=== PATIENT | male | born 1955 | race Caucasian/White ===

== ENCOUNTER → 2017-07-20 15:39 | Outpatient (CLI) | payer OTHER, SELFPAY ==
[2017-07-20 16:54] LABS: Hemoglobin 14.3 g/dl (13.0-16.5); Mean Corpuscular Hgb 29.7 pg (27.0-32.0); Mean Corpuscular Volume 87.3 fL (80-94); Mean Platelet Vol. 11.9 fl (6.2-12.0); Platelet Count 201 K/mm3 (150-450); RBC Distribution Width CV 13.1 % (11.6-14.6); RBC Distribution Width SD 40.9 fl (35.1-43.9); Red Blood Count 4.81 M/mm3 (4.6-6.2); White Blood Count 9.4 K/mm3 (4.4-11.0)
[2017-07-20 16:57] LABS: Scan Indicated on CBC? Y/N NO
[2017-07-20 17:18] LABS: Anion Gap 6 (5-15); BUN 23 mg/dL (7-18); BUN/Creat Ratio 26.2 RATIO (10-20); Calcium,Total 9.1 mg/dL (8.5-10.1); Chloride 107 mmol/L (98-107); Creatinine, Serum 0.88 mg/dL (0.70-1.30); EST Glomerular Filtration Rate 94 mL/min (>60); Est Glom Filt Rate - Afr Amer 114 mL/min (>60); Glucose 94 mg/dL (74-106); Potassium 4.6 mmol/L (3.5-5.1); Sodium Level 142 mmol/L (136-145)
== END ==
PROVIDERS: Family Provider Family Medicine; PCP Family Medicine; Visit Provider Internal Medicine Cardiovascular Disease
DX: R06.02 Shortness of breath (principal); I48.91 Unspecified atrial fibrillation
CPT/HCPCS: 36415; 80048; 85027

== ENCOUNTER 2017-07-21 00:16 | Observation (INO) | payer OTHER, SELFPAY ==
[2017-07-21] VITALS (21 sets, daily range): BP systolic 121–159; BP diastolic 75–102; PULSE 35–67; RESP 16–20; TEMP 36.6–37.2; O2SAT 93–98; BMI 44.8; BMI 44.0
--- NOTE | 2017-07-21 00:38 | RAD_ITS ---
STUDY: X-RAY CHEST REASON FOR EXAM: Male, 62 years old. Chest pressure, dizziness and bradycardia. TECHNIQUE: PA and lateral views of the chest. COMPARISON: July 14, 2014. FINDINGS: Cardiac monitoring leads are present. The lungs are expanded. There is mild interstitial thickening present in both lungs There is no demonstrated pleural abnormality. There is borderline cardiomegaly. Normal mediastinum and geraldine. There is prominence of the pulmonary hilar arteries without peripheral pulmonary vascular congestion. There is atherosclerotic calcification of the aortic arch with tortuosity. Normal visualized thoracic spine. Normal visualized ribs, clavicles, and shoulders. There is no demonstrated abnormality of the visualized soft tissue structures of the upper abdomen. RAD/Chest PA and Lateral IMPRESSION: Borderline cardiomegaly. The cardiac silhouette is larger than it was on the previous radiograph. Electronically Signed: Shana Reynoso MD at 1:51 EDT , Service support ,
--- NOTE | 2017-07-21 00:38 | EKG12_ITS ---
Test Reason : REPEAT Blood Pressure : / mmHG Vent. Rate : 052 BPM Atrial Rate : 052 BPM P-R Int : 180 ms QRS Dur : 112 ms QT Int : 432 ms P-R-T Axes : 062 -02 034 degrees QTc Int : 401 ms Sinus bradycardia Otherwise normal ECG Confirmed by REI WRAY MD ([id number]), web editor CYNTHIA KRUSE ([id number]) on 07/24/2017 1:18:24 PM Referred By: Rei Wray Confirmed By:REI WRAY MD
[2017-07-21 00:45] LABS: Absolute Lymphocyte Count 3.45 X10^3/ul (0.83-4.51); Absolute Neutrophil Count 4.8 X10^3/uL (2.0-7.7); Basophil# 0.06 X10^3/uL; Basophil% 0.6 % (0-1); Eosinophil# 0.23 X10^3/uL; Eosinophils% 2.4 % (0-5); Hematocrit 40.8 % (40-54); Hemoglobin 13.9 g/dl (13.0-16.5); Lymphocyte # 3.45 X10^3/ul (4.0); Lymphocyte % 36.1 % (19-41); Mean Corp Hgb Conc 34.1 g/gl (32-36); Mean Corpuscular Hgb 29.8 pg (27.0-32.0); Mean Corpuscular Volume 87.4 fL (80-94); Mean Platelet Vol. 11.2 fl (6.2-12.0); Monocyte# 1.02 X10^3/uL; Monocyte% 10.7 % (0-10); Neutrophil # 4.78 X10^3/uL (2.7-7.7); Neutrophil % 49.9 % (47-70); Platelet Count 196 K/mm3 (150-450); RBC Distribution Width CV 13.2 % (11.6-14.6); RBC Distribution Width SD 41.7 fl (35.1-43.9); Red Blood Count 4.67 M/mm3 (4.6-6.2); White Blood Count 9.6 K/mm3 (4.4-11.0)
[2017-07-21 00:46] LABS: POSITIVE COUNT NO; POSITIVE DIFFERENTIAL NO; POSITIVE MORPHOLOGY NO
[2017-07-21] MEDS: Aspirin 81 MG TAB.CHEW 324 MG PO (00:54)
[2017-07-21 00:58] LABS: Anion Gap 8 (5-15); BUN 27 mg/dL (7-18); BUN/Creat Ratio 28.2 RATIO (10-20); Chloride 106 mmol/L (98-107); Creatinine, Serum 0.96 mg/dL (0.70-1.30); EST Glomerular Filtration Rate 85 mL/min (>60); Est Glom Filt Rate - Afr Amer 103 mL/min (>60); Estimated Creatinine Clearance 89.81 ml/min; Glucose 102 mg/dL (74-106); Potassium 3.7 mmol/L (3.5-5.1); Sodium Level 143 mmol/L (136-145)
--- NOTE | 2017-07-21 01:20 | ED.VISSUMM ---
- ER Visit Summary Date of Service: 07/21/17 Chief Complaint: Chest pain History of Present Illness: The patient is a 62 M who presents with chest pain. He states that he has had chest pressure most of the day today which waxes and wanes but never completely resolves. He currently complains of only minimal discomfort. He is also felt short of breath. He reports pressure initially but also some burning type pain associated with some nausea but no vomiting. He saw his applications support engineer earlier today who had him discontinue his metoprolol due to bradycardia. However tonight his symptoms were worse he also developed some diaphoresis. He denies any recent illness fevers or vomiting. He has a history of atrial fibrillation with cardiac ablation but no history of coronary disease no diabetes hypertension or hyperlipidemia. He reports having a normal cardiac catheterization about 5 years ago. Physical Examination: Afebrile heart rate 57 vitals otherwise unremarkable Heart regular rhythm bradycardia Lungs are clear Abdomen soft Alert Symmetric radial pulses No edema Test Results: EKG shows sinus rhythm at a rate of 57 with no acute ischemic changes although initial EKG does show a fair amount of artifact. Chest x-ray shows no acute process on my review. CBC BMP and troponin unremarkable. Emergency Department Course and Treatment: Patient reports that at home his heart rate was as low as 32 tonight. I am also concerned given his description of symptoms as pressure with associated shortness of breath nausea and diaphoresis. Although he does not have a history of coronary disease he has obese with a history of dysrhythmia. I am concerned for potential cardiac ischemia. He was given aspirin here. He was discussed with the hospitalist. He will be admitted for further workup. Treatment Plan: [] Disposition: Admit Impression: Chest pain Bradycardia This note was generated with [employer] dictation software. It may contain incorrect words, spelling, and punctuation that were not noted in review of the chart prior to signing ED Disposition - Plan for ED Patient: Chief Complaint: Chest Pain Referrals: J aCrlos Reynoso MD [Primary Care Provider] -
--- NOTE | 2017-07-21 01:23 | EKG12_ITS ---
Test Reason : CP Blood Pressure : / mmHG Vent. Rate : 057 BPM Atrial Rate : 057 BPM P-R Int : 186 ms QRS Dur : 090 ms QT Int : 394 ms P-R-T Axes : 060 -14 032 degrees QTc Int : 383 ms Sinus bradycardia Otherwise normal ECG Confirmed by LAISHA UGALDE, REI ([id number]), health editor CYNTHIA KRUSE ([id number]) on 07/24/2017 1:19:35 PM Referred By: Rei Wray Confirmed By:REI WRAY MD
--- NOTE | 2017-07-21 01:23 | ED.DCSUM_ITS ---
- ER Visit Summary Date of Service: 07/21/17 Chief Complaint: Chest pain History of Present Illness: The patient is a 62 M who presents with chest pain. He states that he has had chest pressure most of the day today which waxes and wanes but never completely resolves. He currently complains of only minimal discomfort. He is also felt short of breath. He reports pressure initially but also some burning type pain associated with some nausea but no vomiting. He saw his periodicals library assistant earlier today who had him discontinue his metoprolol due to bradycardia. However tonight his symptoms were worse he also developed some diaphoresis. He denies any recent illness fevers or vomiting. He has a history of atrial fibrillation with cardiac ablation but no history of coronary disease no diabetes hypertension or hyperlipidemia. He reports having a normal cardiac catheterization about 5 years ago. Physical Examination: Afebrile heart rate 57 vitals otherwise unremarkable Heart regular rhythm bradycardia Lungs are clear Abdomen soft Alert Symmetric radial pulses No edema Test Results: EKG shows sinus rhythm at a rate of 57 with no acute ischemic changes although initial EKG does show a fair amount of artifact. Chest x-ray shows no acute process on my review. CBC BMP and troponin unremarkable. Emergency Department Course and Treatment: Patient reports that at home his heart rate was as low as 32 tonight. I am also concerned given his description of symptoms as pressure with associated shortness of breath nausea and diaphoresis. Although he does not have a history of coronary disease he has obese with a history of dysrhythmia. I am concerned for potential cardiac ischemia. He was given aspirin here. He was discussed with the hospitalist. He will be admitted for further workup. Treatment Plan: [] Disposition: Admit Impression: Chest pain Bradycardia This note was generated with [employer] dictation software. It may contain incorrect words, spelling, and punctuation that were not noted in review of the chart prior to signing ED Disposition - Plan for ED Patient: Chief Complaint: Chest Pain Referrals: J Carlos Reynoso MD [Primary Care Provider] -
--- NOTE | 2017-07-21 02:02 | PCM.HP.STD ---
Problem List (1) Chest pressure Status: Acute (2) Morbid obesity with BMI of 40.0-44.9, adult Status: Chronic (3) Bradycardia Status: Acute (4) Dehydration Status: Acute (5) Asthma Status: Chronic (6) Femoral artery pseudo-aneurysm, right Status: Resolved Comment: following an ablation at [facility] (7) Atrial fibrillation Status: Chronic Qualifiers: Atrial fibrillation type: paroxysmal Qualified Code(s): I48.0 - Paroxysmal atrial fibrillation (8) History of cardiac radiofrequency ablation Status: Chronic Comment: 06/20/05 @ [facility] per Dr. Lucas (9) Dyshidrotic eczema Status: Chronic Comment: BL hands History of Present Illness Date of Admission: 07/21/17 Chief Complaint: chest pressure associated with diaphoresis, lightheadedness and shortness of breath The patient is a 62 year old M with a past medical history of asthma atrial fibrillation with for radiofrequency ablations in the past, no aneurysms in the right leg following catheterization for ablation and morbid obesity who presented to the ER at [facility] with a c/o substernal chest pressure associated with lightheadedness, diaphoresis and SOB. The chest pressure this evening came on at rest while he was sitting in a chair. There was no radiation of the pain to the jaw, arms or back. 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 He denies CP with exertion. He saw Dr. Wray in the office on 07/20/17 and was apparently bradycardic and metoprolol was discontinued....he was taking 25 mg BID. His last stress test was > 5 years ago and it was negative. EKG in the ER shows SB but is otherwise normal. CXR has no acute findings. Troponin was less than 0.02. BUN was elevated at 27 with a creatinine of 0.96. He is being admitted to the monitored bed on PCU and will have serial CE's. If the CE's are negative will proceed with treadmill nuclear stress test. Past Medical History Past Medical History (Chronic Problems): Chronic Problems (Last Updated 07/20/17 @ 14:27 by Melly Foster) Morbid obesity with BMI of 40.0-44.9, adult (Chronic) Asthma (Chronic) Dyshidrotic eczema (Chronic) BL hands History of cardiac radiofrequency ablation (Chronic) 06/20/05 @ [facility] per Dr. Lucas Atrial fibrillation (Chronic) Allergies No Known Allergies Allergy (Verified 07/21/17 00:17) Home Medications: Ambulatory Orders Medication Instructions Recorded aspirin 325 mg tablet,delayed 325 mg PO QDAY 07/20/17 release Surgical History: - - Bilateral arthroscopic surgery of the knees. Psychiatric History: No pertinent psych hx Lives: Spouse/ Significant Other Smoking Status: Former smoker - He quit smoking in the 1970s Tobacco Use: Non-smoker Alcohol: Rare Drugs: None - *Family History Maternal History Items: Diabetes Paternal History Items: Cancer - Cannot remember if it is prostate or colon cancer Sibling History Items: - - He has a half-brother who is secondary to lung cancer Review of Systems Constitutional: Denies: Chills, Fever, Weight Change HEENT: Denies: Head Aches, Sinus Congestion, Sinus Drainage Cardiovascular: Reports: Chest Pressure, Light Headedness. Denies: Edema, Orthopnea, Palpitations, Paroxysmal Noc. Dyspnea, Syncope Respiratory: Denies: Cough, Shortness of breath at rest, Sputum production Gastrointestinal: Reports: - - he had bloating/gas in the upper abdomen earlier tonight and this was relieved with TUMS. Denies: Abdominal Pain, Nausea, Vomiting Genitourinary: Denies: Dysuria Musculoskeletal: Denies: Joint Pain, Joint Tenderness Skin: Reports: - - dry cracked hands Neurological: Denies: Numbness, Tingling, Focal weakness Psychiatric: Denies: Anxiety, Depression, Homicidal Ideations, Suicidal Ideations Endocrine: Denies: Change in Body Habitus Hematologic/ Lymphatic: Denies: Hx of blood clot VTE Information - Inpt Only VTE Present on Admission: No VTE Mechan Device Prophylaxis: None VTE Pharm Prophylaxis ordered?: No Reason prophylaxis not ordered:: Treatment Not Indicated - short admission expected Patient Problems: Active and Suspected Problems (Last Updated 07/20/17 @ 14:27 by Melly Foster) Chest pressure (Acute) Bradycardia (Acute) Dehydration (Acute) - Physical Exam General: Alert, Oriented x3, Cooperative, No apparent distress, Well developed, Well nourished HEENT: Atraumatic, PERRLA, EOMI, Normocephalic Oral: No Gingival or Mucosal Lesions/ Ulcerations, Dry Mucosa Neck: Supple, No JVD, Negative Carotid Bruits, Negative Hepatojugular Reflux, Trachea Midline Lungs: Clear to auscultation, Diminished Cardiovascular: Regular Rhythm, Normal S1, Normal S2, No murmurs, Bradycardic, No rub noted, No Gallop, - - tele monitor is showing SB at 53 BPM with PAC's Abdomen: Bowel Sounds Present, Soft, Non Tender, Non-Distended, Obese Extremities: No clubbing, No cyanosis, No edema, No Calf Tenderness, Peripheral Pulses Normal Skin: No rashes, No breakdown Musculoskeletal: No Muscle Wasting Neurological: Cranial nerves II-XII grossly intact, Neuro grossly intact Psych/Mental Status: Normal Affect, Appropriate Vital Signs Temp Pulse Resp BP Pulse Ox 98.4 F 50 L 16 144/75 H 98 07/21/17 00:18 07/21/17 01:53 07/21/17 01:53 07/21/17 01:53 07/21/17 01:53 Oxygen Flow Rate (L/min) 2 Oxygen Delivery Method Nasal Cannula Weight: 330 lb 11.094 oz Body Mass Index (BMI) 44.8 Laboratory Tests Past 24 Hrs 07/21/17 07/21/17 00:24 00:24 WBC 9.6 RBC 4.67 Hgb 13.9 Hct 40.8 MCV 87.4 MCH 29.8 MCHC 34.1 RDW 13.2 RDW Differential 41.7 Plt Count 196 MPV 11.2 Immature Gran % (Auto) 0.300 Neut % (Auto) 49.9 Lymph % (Auto) 36.1 [place] % (Auto) 10.7 H Eos % (Auto) 2.4 Baso % (Auto) 0.6 Absolute Neuts (auto) 4.8 Absolute Lymphs (auto) 3.45 Total Counted Not Reportable Sodium 143 Potassium 3.7 Chloride 106 Carbon Dioxide 29.0 Anion Gap 8 BUN 27 H Creatinine 0.96 Estim Creat Clear Calc 89.81 Est GFR (MDRD) Af Amer 103 Est GFR (MDRD) Non-Af 85 BUN/Creatinine Ratio 28.2 H Glucose 102 Calcium 9.0 Troponin I < 0.02 Assessment/Plan Active and Suspected Problems (Last Updated 07/20/17 @ 14:27 by Melly Foster) Chest pressure (Acute) Bradycardia (Acute) Dehydration (Acute) impressions 1. atypical chest pain occurring at rest and associated with lightheadedness, diaphoresis and SOB. HR was 32 BPM at home and in the 30's when he presented to the ER. No ischemic changes on the EKG. No pain with exertion. Sx are possibly related to severe bradycardia with low CO coupled with dehydration but, can not r/o RCA/IW ischemia. Admitted to PCU and serial CE's ordered and of negative will have a treadmill nuclear stress in the AM. 2. hx of PAF with radiofrequency ablation ?4 in the past 3. History of asthma 4. History of low aneurysms in the right lower extremity/femoral artery following cardiac catheterization for ablation 5. Morbid obesity Will notify Dr. Wray of his admission to the hospital in the AM Code Visit OBSV E&M: [id number] Initial observation care L3
--- NOTE | 2017-07-21 02:15 | HP.PCM_ITS ---
Problem List (1) Chest pressure Status: Acute (2) Morbid obesity with BMI of 40.0-44.9, adult Status: Chronic (3) Bradycardia Status: Acute (4) Dehydration Status: Acute (5) Asthma Status: Chronic (6) Femoral artery pseudo-aneurysm, right Status: Resolved Comment: following an ablation at [facility] (7) Atrial fibrillation Status: Chronic Qualifiers: Atrial fibrillation type: paroxysmal Qualified Code(s): I48.0 - Paroxysmal atrial fibrillation (8) History of cardiac radiofrequency ablation Status: Chronic Comment: 06/20/05 @ [facility] per Dr. Lucas (9) Dyshidrotic eczema Status: Chronic Comment: BL hands History of Present Illness Date of Admission: 07/21/17 Chief Complaint: chest pressure associated with diaphoresis, lightheadedness and shortness of breath The patient is a 62 year old M with a past medical history of asthma atrial fibrillation with for radiofrequency ablations in the past, no aneurysms in the right leg following catheterization for ablation and morbid obesity who presented to the ER at [facility] with a c/o substernal chest pressure associated with lightheadedness, diaphoresis and SOB. The chest pressure this evening came on at rest while he was sitting in a chair. There was no radiation of the pain to the jaw, arms or back. 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 He denies CP with exertion. He saw Dr. Wray in the office on 07/20 and was apparently bradycardic and metoprolol was discontinued....he was taking 25 mg BID. His last stress test was > 5 years ago and it was negative. EKG in the ER shows SB but is otherwise normal. CXR has no acute findings. Troponin was less than 0.02. BUN was elevated at 27 with a creatinine of 0.96. He is being admitted to the monitored bed on PCU and will have serial CE's. If the CE's are negative will proceed with treadmill nuclear stress test. Past Medical History Past Medical History (Chronic Problems): Chronic Problems (Last Updated 07/20/17 @ 14:27 by Melly Foster) Morbid obesity with BMI of 40.0-44.9, adult (Chronic) Asthma (Chronic) Dyshidrotic eczema (Chronic) BL hands History of cardiac radiofrequency ablation (Chronic) 06/20/05 @ [facility] per Dr. Lucas Atrial fibrillation (Chronic) Allergies No Known Allergies Allergy (Verified 07/21/17 00:17) Home Medications: Ambulatory Orders Medication Instructions Recorded aspirin 325 mg tablet,delayed 325 mg PO QDAY 07/20/17 release Surgical History: - - Bilateral arthroscopic surgery of the knees. Psychiatric History: No pertinent psych hx Lives: Spouse/ Significant Other Smoking Status: Former smoker - He quit smoking in the 1970s Tobacco Use: Non-smoker Alcohol: Rare Drugs: None - *Family History Maternal History Items: Diabetes Paternal History Items: Cancer - Cannot remember if it is prostate or colon cancer Sibling History Items: - - He has a half-brother who is secondary to lung cancer Review of Systems Constitutional: Denies: Chills, Fever, Weight Change HEENT: Denies: Head Aches, Sinus Congestion, Sinus Drainage Cardiovascular: Reports: Chest Pressure, Light Headedness. Denies: Edema, Orthopnea, Palpitations, Paroxysmal Noc. Dyspnea, Syncope Respiratory: Denies: Cough, Shortness of breath at rest, Sputum production Gastrointestinal: Reports: - - he had bloating/gas in the upper abdomen earlier tonight and this was relieved with TUMS. Denies: Abdominal Pain, Nausea, Vomiting Genitourinary: Denies: Dysuria Musculoskeletal: Denies: Joint Pain, Joint Tenderness Skin: Reports: - - dry cracked hands Neurological: Denies: Numbness, Tingling, Focal weakness Psychiatric: Denies: Anxiety, Depression, Homicidal Ideations, Suicidal Ideations Endocrine: Denies: Change in Body Habitus Hematologic/ Lymphatic: Denies: Hx of blood clot VTE Information - Inpt Only VTE Present on Admission: No VTE Mechan Device Prophylaxis: None VTE Pharm Prophylaxis ordered?: No Reason prophylaxis not ordered:: Treatment Not Indicated - short admission expected Patient Problems: Active and Suspected Problems (Last Updated 07/20/17 @ 14:27 by Melly Foster) Chest pressure (Acute) Bradycardia (Acute) Dehydration (Acute) - Physical Exam General: Alert, Oriented x3, Cooperative, No apparent distress, Well developed, Well nourished HEENT: Atraumatic, PERRLA, EOMI, Normocephalic Oral: No Gingival or Mucosal Lesions/ Ulcerations, Dry Mucosa Neck: Supple, No JVD, Negative Carotid Bruits, Negative Hepatojugular Reflux, Trachea Midline Lungs: Clear to auscultation, Diminished Cardiovascular: Regular Rhythm, Normal S1, Normal S2, No murmurs, Bradycardic, No rub noted, No Gallop, - - tele monitor is showing SB at 53 BPM with PAC's Abdomen: Bowel Sounds Present, Soft, Non Tender, Non-Distended, Obese Extremities: No clubbing, No cyanosis, No edema, No Calf Tenderness, Peripheral Pulses Normal Skin: No rashes, No breakdown Musculoskeletal: No Muscle Wasting Neurological: Cranial nerves II-XII grossly intact, Neuro grossly intact Psych/Mental Status: Normal Affect, Appropriate Vital Signs Temp Pulse Resp BP Pulse Ox 98.4 F 50 L 16 144/75 H 98 07/21/17 00:18 07/21/17 01:53 07/21/17 01:53 07/21/17 01:53 07/21/17 01:53 Oxygen Flow Rate (L/min) 2 Oxygen Delivery Method Nasal Cannula Weight: 330 lb 11.094 oz Body Mass Index (BMI) 44.8 Laboratory Tests Past 24 Hrs 07/21/17 07/21/17 00:24 00:24 WBC 9.6 RBC 4.67 Hgb 13.9 Hct 40.8 MCV 87.4 MCH 29.8 MCHC 34.1 RDW 13.2 RDW Differential 41.7 Plt Count 196 MPV 11.2 Immature Gran % (Auto) 0.300 Neut % (Auto) 49.9 Lymph % (Auto) 36.1 [place] % (Auto) 10.7 H Eos % (Auto) 2.4 Baso % (Auto) 0.6 Absolute Neuts (auto) 4.8 Absolute Lymphs (auto) 3.45 Total Counted Not Reportable Sodium 143 Potassium 3.7 Chloride 106 Carbon Dioxide 29.0 Anion Gap 8 BUN 27 H Creatinine 0.96 Estim Creat Clear Calc 89.81 Est GFR (MDRD) Af Amer 103 Est GFR (MDRD) Non-Af 85 BUN/Creatinine Ratio 28.2 H Glucose 102 Calcium 9.0 Troponin I < 0.02 Assessment/Plan Active and Suspected Problems (Last Updated 07/20/17 @ 14:27 by Melly Foster) Chest pressure (Acute) Bradycardia (Acute) Dehydration (Acute) impressions 1. atypical chest pain occurring at rest and associated with lightheadedness, diaphoresis and SOB. HR was 32 BPM at home and in the 30's when he presented to the ER. No ischemic changes on the EKG. No pain with exertion. Sx are possibly related to severe bradycardia with low CO coupled with dehydration but , can not r/o RCA/IW ischemia. Admitted to PCU and serial CE's ordered and of negative will have a treadmill nuclear stress in the AM. 2. hx of PAF with radiofrequency ablation ?4 in the past 3. History of asthma 4. History of low aneurysms in the right lower extremity/femoral artery following cardiac catheterization for ablation 5. Morbid obesity Will notify Dr. Wray of his admission to the hospital in the AM Code Visit OBSV E&M: 10397 Initial observation care L3
[2017-07-21] MEDS: 0.45% Normal Saline 1,000 ML 125 ML IV ×2 (03:29→11:37)
[2017-07-21] MEDS: Folic Acid 1 MG Tablet 2 MG PO (03:30)
[2017-07-21 04:46] LABS: AST(SGOT) 50 U/L (15-37); Alanine Aminotransfer ALT/SGPT 111 U/L (16-61); Albumin, Serum 3.9 g/dL (3.2-5.0); Alkaline Phosphatase 61 U/L (45-117); Bilirubin, Direct 0.13 mg/dL (0.00-0.30); Globulin 2.8 g/dL (2.2-4.2); Magnesium 2.3 mg/dL (1.6-2.6); Protein, Total 6.7 g/dL (6.4-8.2); Thyroid Stim Hormone (TSH) 3.45 uIU/mL (0.358-3.74)
[2017-07-21 05:34] LABS: Cholesterol 130 mg/dL (200); High Density Lipoprotein 45 mg/dL; Triglycerides 97 mg/dL; Very Low Density Lipoprotein 19 mg/dL (5-40)
--- NOTE | 2017-07-21 05:55 | EKG12_ITS ---
Test Reason : MORNING EKG Blood Pressure : / mmHG Vent. Rate : 049 BPM Atrial Rate : 049 BPM P-R Int : 182 ms QRS Dur : 102 ms QT Int : 454 ms P-R-T Axes : 070 -08 018 degrees QTc Int : 410 ms Sinus bradycardia Low voltage QRS Borderline ECG When compared with ECG of 21-JUL-2017 01:23, MANUAL COMPARISON REQUIRED, DATA IS UNCONFIRMED Confirmed by LAISHA UGALDE, REI ([id number]), health editor CYNTHIA KRUSE ([id number]) on 07/24/2017 1:55:33 PM Referred By: Rei Wray Confirmed By:REI WRAY MD
[2017-07-21] MEDS: Lisinopril 5 MG Tablet PO (07:26)
[2017-07-21] MEDS: Aspirin E.C. 81 MG Tablet PO (07:26)
--- NOTE | 2017-07-21 08:05 | CM.UR ---
Per MMO website, patient can transfer to any of the following in-network tertiary centers: [facility], [facility], [facility], [facility], and . Capri Holland, BSN, RN-BC, CCM
--- NOTE | 2017-07-21 08:42 | CON.PCM_ITS ---
Reason for Consult Date of Consultation: 07/21/17 Reason for Consultation: Chest pain and dizziness History of Present Illness: The patient is a 62 year old M with a past medical history of asthma atrial fibrillation with for radiofrequency ablations in the past,and morbid obesity who presented to the ER at [facility] with a c/o substernal chest pressure associated with lightheadedness, diaphoresis and SOB. The chest pressure this evening came on at rest while he was sitting in a chair. There was no radiation of the pain to the jaw, arms or back. 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 He denies CP with exertion. He saw me in the office on when he walked in complaining of the same an EKG was done and was apparently bradycardic and metoprolol was discontinued....he was taking 25 mg BID. One was for him to have an outpatient 24-hour Holter monitor and see what happened to his heart rate when he had discontinued the beta-damian. His last stress test was > 5 years ago and it was negative. EKG in the ER shows SB but is otherwise normal. CXR has no acute findings. Troponin was less than 0.02. BUN was elevated at 27 with a creatinine of 0.96. He presented to the emergency room later on in the evening and was admitted with a cardiology consult. [] Past Medical History Allergies/Adverse Reactions: Allergies Hay Fever Allergy (Uncoded 07/21/17 03:04) Other Home Medications: Ambulatory Orders Medication Instructions Recorded aspirin 325 mg tablet,delayed 325 mg PO QDAY 07/20/17 release Albuterol Inhaler [Ventolin Hfa 2 puff INHALATION Q6H PRN PRN 07/21/17 (SP)] Potassium (Otc) [Potassium OTC] 99 mg PO DAILY 07/21/17 Symbicort 160-4.5 Mcg Inhaler 2 puff INHALATION BID PRN 07/21/17 Past Medical History (Chronic Problems): Chronic Problems (Last Updated 07/20/17 @ 14:27 by Melly Foster) Morbid obesity with BMI of 40.0-44.9, adult (Chronic) Asthma (Chronic) History of cardiac radiofrequency ablation (Chronic) 06/20/05 @ [facility] per Dr. Lucas Atrial fibrillation (Chronic) Surgical History: - - Bilateral arthroscopic surgery of the knees. Psychiatric History: No pertinent psych hx - *Family History Maternal Family History: Family History (Last Updated 07/20/17 @ 14:29 by Melly Foster) Other CVA (cerebral vascular accident) Cancer Diabetes Hypertension History Items: Diabetes Paternal Family History: Family History (Last Updated 07/20/17 @ 14:29 by Melly Foster) Other CVA (cerebral vascular accident) Cancer Diabetes Hypertension History Items: Cancer - Cannot remember if it is prostate or colon cancer Sibling Family History: Family History (Last Updated 07/20/17 @ 14:29 by Melly Foster) Other CVA (cerebral vascular accident) Cancer Diabetes Hypertension History Items: - - He has a half-brother who is secondary to lung cancer Lives: Spouse/ Significant Other Smoking Status: Former smoker Tobacco Use: Non-smoker Alcohol: Rare Drugs: None Review of Systems - Review of Systems General: Denies: Fever, Night Sweats, Fatigue Cardiovascular: Reports: Chest Discomfort at Rest, Chest Pressure. Denies: Chest Discomfort, Shortness of Breath, Orthopnea, PND, Peripheral Edema, Palpitations, Lightheadedness, Dizziness, Near Syncope, Syncope Respiratory: Denies: Cough, Sputum Production, Hemoptysis Gastrointestinal: Denies: Hematemesis, Hematochezia, Melena Genitourinary: Denies: Dysuria, Hematuria Skin: Denies: Rash Subjectve: Pleasant gentleman in no apparent distress. Objective: Vital Signs Temp Pulse Resp BP Pulse Ox 98.3 F 53 L 18 139/85 H 98 07/21/17 07:22 07/21/17 07:22 07/21/17 07:22 07/21/17 07:22 07/21/17 07:22 Oxygen Flow Rate (L/min) 2 Oxygen Delivery Method Nasal Cannula Weight: 324 lb 8.327 oz Body Mass Index (BMI) 44.0 Intake and Output for Last 24 Hours 07/19/17 07/20/17 07/21/17 23:59 23:59 23:59 Intake Total 430 / 430 Balance 430 / 430 General: Awake, Alert, Oriented x 3 HEENT: PERRL, EOMI, Sclera Non Icteric Neck: Supple, Good ROM, No Lymph Node Enlargement Lungs: Clear to auscultation Cardiovascular: Regular Rhythm, Normal S1, Normal S2, No Murmurs, No Rubs, No Gallops Vascular: No Carotid Bruits, Normal Femoral Pulses, Normal Radial Pulses, Normal Dorsalis Pedal Pulse, Normal Posterior Tibial Pulses Abdomen: Bowel Sounds Present, Soft, Non Tender, No HSM, No Organomegaly Extremities: No Cyanosis, No Clubbing, No edema Neurological: No Focal Motor or Sensory Deficit 07/21/17 05:06: Troponin I < 0.02, Triglycerides 97, Cholesterol 130, LDL Cholesterol 66, VLDL Cholesterol 19, HDL Cholesterol 45 Rhythm: Sinus bradycardia. Pauses noted less than 2.5 seconds. EKG: Sinus bradycardia Assessment/Plan 1. Chest pain. The etiology of his chest pain is unclear at this time but is likely secondary to poor perfusion from his bradycardia arrhythmias. As he has presented back through the emergency room with chest discomfort it may be prudent to evaluate his coronary anatomy with cardiac catheterization and then depending on the findings further recommendations made. If his coronaries are noted to be normal I would recommend discontinuing his beta-damian and then observing him. 2. History of atrial tachyarrhythmia. He had a previous history of atrial tachyarrhythmia which was ablated successfully. It does not appear that he has had any recurrences but he appears to be bradycardic secondary to his beta-damian. Conduction system disease would need to be excluded. The above for the patient he understands and agrees to proceed. Thank you for allowing me to participate in the care of your patient. Please don't hesitate to call if any issues arise
[2017-07-21 09:00] LABS: Absolute Lymphocyte Count 2.36 X10^3/ul (0.83-4.51); Absolute Neutrophil Count 5.3 X10^3/uL (2.0-7.7); Basophil# 0.09 X10^3/uL; Eosinophil# 0.26 X10^3/uL; Hematocrit 40.2 % (40-54); Hemoglobin 13.7 g/dl (13.0-16.5); Lymphocyte # 2.36 X10^3/ul (4.0); Lymphocyte % 26.9 % (19-41); Mean Corp Hgb Conc 34.1 g/gl (32-36); Mean Corpuscular Hgb 29.7 pg (27.0-32.0); Mean Corpuscular Volume 87.2 fL (80-94); Mean Platelet Vol. 11.3 fl (6.2-12.0); Monocyte# 0.76 X10^3/uL; Monocyte% 8.7 % (0-10); Neutrophil # 5.27 X10^3/uL (2.7-7.7); Neutrophil % 60.1 % (47-70); Platelet Count 176 K/mm3 (150-450); RBC Distribution Width SD 40.7 fl (35.1-43.9); Red Blood Count 4.61 M/mm3 (4.6-6.2); White Blood Count 8.8 K/mm3 (4.4-11.0)
[2017-07-21 09:05] LABS: POSITIVE COUNT NO; POSITIVE DIFFERENTIAL NO; POSITIVE MORPHOLOGY NO
[2017-07-21 09:08] LABS: Partial Thromboplast Time 31.3 Seconds (24.1-36.2); Prothrombin Time (Protime)PT. 13.4 SECONDS (11.7-14.9)
[2017-07-21 09:40] LABS: Anion Gap 8 (5-15); BUN 23 mg/dL (7-18); BUN/Creat Ratio 28.3 RATIO (10-20); Calcium,Total 9.1 mg/dL (8.5-10.1); Chloride 107 mmol/L (98-107); Creatinine, Serum 0.81 mg/dL (0.70-1.30); EST Glomerular Filtration Rate 103 mL/min (>60); Est Glom Filt Rate - Afr Amer 124 mL/min (>60); Estimated Creatinine Clearance 106.45 ml/min; Glucose 83 mg/dL (74-106); Potassium 4.1 mmol/L (3.5-5.1); Sodium Level 143 mmol/L (136-145)
[2017-07-21 10:13] LABS: Bacteria 0 SEEN /hpf (None Seen); Mucous, Urine 0 SEEN /hpf (<or=2+); Red Blood Cells-Urine 0 SEEN /hpf (0-5); White Blood Cells 0 SEEN /hpf (0-5)
[2017-07-21 10:28] LABS: Glucose, Dipstick Normal (Normal); Ketone-Dipstick Negative (Negative); Leukocyte Esterase-Dipstick Negative /ul (Negative); Nitrite-Dipstick Negative (Negative); Occult Blood-Urine Negative /ul (Negative); Protein-Dipstick Negative (Negative); Urine Bilirubin Dipstick Negative (Negative); Urine Urobilinogen Normal (Normal)
[2017-07-21 10:39] LABS: Color, Urine Yellow (Yellow); Urine Clarity Clear (Clear)
[2017-07-21 10:46] LABS: Squamous Epithelial Cells - UA 0-5 SEEN /hpf (0-5)
--- NOTE | 2017-07-21 12:02 | PN_ITS ---
<Anabelle Oshea - Last Filed: 07/21/17 12:02> Subjective: Patient seen and examined. Denies further chest pressure. States he had episode of shortness of breath this morning, none further. Denies dizziness, lightheadedness, palpitations. To undergo cardiac catheterization this afternoon. Denies other complaints. - Physical Exam General: Alert, Oriented x3, Cooperative, No apparent distress HEENT: Atraumatic, PERRLA, EOMI, Normocephalic Neck: Supple, No JVD, Negative Carotid Bruits Lungs: Clear to auscultation, Diminished Cardiovascular: Regular Rhythm, Normal S1, Normal S2, No murmurs, Bradycardic Abdomen: Bowel Sounds Present, Soft, Non Tender, Non-Distended, Obese Extremities: No clubbing, No cyanosis, No edema, Capillary Refill Less than 3 Seconds Skin: No rashes, No breakdown Musculoskeletal: No Tenderness to Palpation of Joints or Extremities Neurological: Cranial nerves II-XII grossly intact, Neuro grossly intact Psych/Mental Status: Normal Affect, Appropriate Vital Signs Temp Pulse Resp BP Pulse Ox 98.3 F 53 L 18 139/85 H 98 07/21/17 07:22 07/21/17 11:07 07/21/17 07:22 07/21/17 07:22 07/21/17 07:22 Oxygen Flow Rate (L/min) 2 Oxygen Delivery Method Nasal Cannula Weight: 147.2 kg Body Mass Index (BMI) 44.0 Intake and Output for Last 24 Hours 07/19/17 07/20/17 07/21/17 23:59 23:59 23:59 Intake Total 1074 / 1074 Balance 1074 / 1074 Laboratory Tests Past 24 Hrs 07/21/17 07/21/17 07/21/17 05:06 08:35 08:35 WBC 8.8 RBC 4.61 Hgb 13.7 Hct 40.2 MCV 87.2 MCH 29.7 MCHC 34.1 RDW 13.0 RDW Differential 40.7 Plt Count 176 MPV 11.3 Immature Gran % (Auto) 0.300 Neut % (Auto) 60.1 Lymph % (Auto) 26.9 Barren % (Auto) 8.7 Eos % (Auto) 3.0 Baso % (Auto) 1.0 Absolute Neuts (auto) 5.3 Absolute Lymphs (auto) 2.36 Total Counted Not Reportable PT INR APTT Sodium Potassium Chloride Carbon Dioxide Anion Gap BUN Creatinine Estim Creat Clear Calc Est GFR (MDRD) Af Amer Est GFR (MDRD) Non-Af BUN/Creatinine Ratio Glucose Calcium Troponin I < 0.02 < 0.02 Triglycerides 97 Cholesterol 130 LDL Cholesterol 66 VLDL Cholesterol 19 HDL Cholesterol 45 Urine Color Urine Clarity Urine pH Ur Specific [place] Urine Protein Urine Glucose (UA) Urine Ketones Urine Occult Blood Urine Nitrite Urine Bilirubin Urine Urobilinogen Ur Leukocyte Esterase Urine RBC Urine WBC Ur Squamous Epith Cells Urine Bacteria Urine Mucus 07/21/17 07/21/17 07/21/17 08:35 08:35 10:02 WBC RBC Hgb Hct MCV MCH MCHC RDW RDW Differential Plt Count MPV Immature Gran % (Auto) Neut % (Auto) Lymph % (Auto) Barren % (Auto) Eos % (Auto) Baso % (Auto) Absolute Neuts (auto) Absolute Lymphs (auto) Total Counted PT 13.4 INR 1.0 APTT 31.3 Sodium 143 Potassium 4.1 Chloride 107 Carbon Dioxide 28.0 Anion Gap 8 BUN 23 H Creatinine 0.81 Estim Creat Clear Calc 106.45 Est GFR (MDRD) Af Amer 124 Est GFR (MDRD) Non-Af 103 BUN/Creatinine Ratio 28.3 H Glucose 83 Calcium 9.1 Troponin I Triglycerides Cholesterol LDL Cholesterol VLDL Cholesterol HDL Cholesterol Urine Color Yellow Urine Clarity Clear Urine pH 6.0 Ur Specific [place] 1.010 Urine Protein Negative Urine Glucose (UA) Normal Urine Ketones Negative Urine Occult Blood Negative Urine Nitrite Negative Urine Bilirubin Negative Urine Urobilinogen Normal Ur Leukocyte Esterase Negative Urine RBC 0 SEEN Urine WBC 0 SEEN Ur Squamous Epith Cells 0-5 SEEN Urine Bacteria 0 SEEN Urine Mucus 0 SEEN Medical Necessity - Tobacco Use Smoking Status: Former smoker Tobacco Use: Non-smoker Assessment/Plan Patient is a 62-year-old male admitted 07/21/2017 due to chest pressure with associated diaphoresis, lightheadedness and shortness of breath. He has a past medical history of asthma, atrial fibrillation status post radiofrequency ablation, morbid obesity. 1. Chest pain-troponin negative ?3. Cardiology consulted. Patient to undergo cardiac catheterization this afternoon with Dr. Wray. Patient follows with Dr. Wray as outpatient. Cardiology suspecting chest pain is secondary to poor perfusion from bradycardia. His metoprolol was recently discontinued as outpatient. 2. History of atrial fibrillation status post radiofrequency ablation ?4- currently sinus bradycardia. 3. Chronic asthma-no acute exacerbation. 4. Morbid obesity-encouraged diet and lifestyle modifications. DVT prophylaxis-initiate Lovenox subcu following cardiac catheterization. This patient was seen by JOHNNA Eubanks under the supervision of Dr. Russo. <Shaq Russo - Last Filed: 07/21/17 18:16> - Physical Exam Vital Signs Temp Pulse Resp BP Pulse Ox 98.1 F 58 L 16 139/82 H 93 07/21/17 16:17 07/21/17 16:17 07/21/17 16:17 07/21/17 16:17 07/21/17 16:17 Oxygen Flow Rate (L/min) 2 Oxygen Delivery Method Room Air Weight: 324 lb 8.327 oz Body Mass Index (BMI) 44.0 Intake and Output for Last 24 Hours 07/19/17 07/20/17 07/21/17 23:59 23:59 23:59 Intake Total 1074 / 1074 Balance 1074 / 1074 Laboratory Tests Past 24 Hrs 07/21/17 07/21/17 07/21/17 05:06 08:35 08:35 WBC 8.8 RBC 4.61 Hgb 13.7 Hct 40.2 MCV 87.2 MCH 29.7 MCHC 34.1 RDW 13.0 RDW Differential 40.7 Plt Count 176 MPV 11.3 Immature Gran % (Auto) 0.300 Neut % (Auto) 60.1 Lymph % (Auto) 26.9 Barren % (Auto) 8.7 Eos % (Auto) 3.0 Baso % (Auto) 1.0 Absolute Neuts (auto) 5.3 Absolute Lymphs (auto) 2.36 Total Counted Not Reportable PT INR APTT Sodium Potassium Chloride Carbon Dioxide Anion Gap BUN Creatinine Estim Creat Clear Calc Est GFR (MDRD) Af Amer Est GFR (MDRD) Non-Af BUN/Creatinine Ratio Glucose Calcium Troponin I < 0.02 < 0.02 Triglycerides 97 Cholesterol 130 LDL Cholesterol 66 VLDL Cholesterol 19 HDL Cholesterol 45 Urine Color Urine Clarity Urine pH Ur Specific [place] Urine Protein Urine Glucose (UA) Urine Ketones Urine Occult Blood Urine Nitrite Urine Bilirubin Urine Urobilinogen Ur Leukocyte Esterase Urine RBC Urine WBC Ur Squamous Epith Cells Urine Bacteria Urine Mucus 07/21/17 07/21/1718 08:35 08:35 10:02 WBC RBC Hgb Hct MCV MCH MCHC RDW RDW Differential Plt Count MPV Immature Gran % (Auto) Neut % (Auto) Lymph % (Auto) Barren % (Auto) Eos % (Auto) Baso % (Auto) Absolute Neuts (auto) Absolute Lymphs (auto) Total Counted PT 13.4 INR 1.0 APTT 31.3 Sodium 143 Potassium 4.1 Chloride 107 Carbon Dioxide 28.0 Anion Gap 8 BUN 23 H Creatinine 0.81 Estim Creat Clear Calc 106.45 Est GFR (MDRD) Af Amer 124 Est GFR (MDRD) Non-Af 103 BUN/Creatinine Ratio 28.3 H Glucose 83 Calcium 9.1 Troponin I Triglycerides Cholesterol LDL Cholesterol VLDL Cholesterol HDL Cholesterol Urine Color Yellow Urine Clarity Clear Urine pH 6.0 Ur Specific [place] 1.010 Urine Protein Negative Urine Glucose (UA) Normal Urine Ketones Negative Urine Occult Blood Negative Urine Nitrite Negative Urine Bilirubin Negative Urine Urobilinogen Normal Ur Leukocyte Esterase Negative Urine RBC 0 SEEN Urine WBC 0 SEEN Ur Squamous Epith Cells 0-5 SEEN Urine Bacteria 0 SEEN Urine Mucus 0 SEEN 07/21/17 13:45 WBC RBC Hgb Hct MCV MCH MCHC RDW RDW Differential Plt Count MPV Immature Gran % (Auto) Neut % (Auto) Lymph % (Auto) Barren % (Auto) Eos % (Auto) Baso % (Auto) Absolute Neuts (auto) Absolute Lymphs (auto) Total Counted PT INR APTT Sodium Potassium Chloride Carbon Dioxide Anion Gap BUN Creatinine Estim Creat Clear Calc Est GFR (MDRD) Af Amer Est GFR (MDRD) Non-Af BUN/Creatinine Ratio Glucose Calcium Troponin I < 0.02 Triglycerides Cholesterol LDL Cholesterol VLDL Cholesterol HDL Cholesterol Urine Color Urine Clarity Urine pH Ur Specific [place] Urine Protein Urine Glucose (UA) Urine Ketones Urine Occult Blood Urine Nitrite Urine Bilirubin Urine Urobilinogen Ur Leukocyte Esterase Urine RBC Urine WBC Ur Squamous Epith Cells Urine Bacteria Urine Mucus Assessment/Plan This patient was seen in conjunction with Anabelle PAN. I have independently interviewed and examined the patient and reviewed pertinent history, examination findings, laboratory and plan of management. I have reviewed the note and agree with the documented findings with the few additional points. In brief, patient is admitted for chest pain, with possibility of unstable angina. Patient is scheduled for cardiac cath. I have discussed my assessment with Anabelle PAN and orders have been reviewed.
--- NOTE | 2017-07-21 13:28 | CL.D_ITS ---
Patient Name: JANELLE QUIÑONES Study Date: 07/21/2017 Performing: Omer Wray MD Ht: 72.04 inches 183 cm : 1955 Wt: 324.08 lbs 147 kg Age: 62 Gender: male BSA: 2.62 PROCEDURE(S) PERFORMED [id number] CLINICAL PROFILE AND INDICATIONS INDICATIONS: 62-year-old man with history of chest pain Stress/Imaging Stress/Image Study Performed: No CONCLUSIONS Normal coronary arteries RECOMMENDATIONS Medical therapy DESCRIPTION OF PROCEDURE The patient arrived to the procedure lab. The risks and benefits of the procedure as well as a full d escription of our services here and current unavailability of surgical backup were fully explained to the patient and/or their significant other prior to the catheterization. The Timeout was completed, verifying the correct patient and procedure. The patient's procedural site was prepped and draped in the usual fashion. Local anesthetic was given subcutaneously to right radial region with Lidocaine 2% . Using a modified Seldinger technique, arterial access was obtained via the right radial artery, a 5 Fr sheath was inserted. Right Coronary Artery selective angiography was then performed in multiple v iews using a 5 Fr. 4.0 Central catheter. Left Coronary Artery selective angiography was performed in mu ltiple views using a 5 Fr. JL 4.5 catheter. Left Ventriculography was performed in GIFFORD projection usi ng a 5 Fr. Pigtail catheter. LV to AO pullback pressures were then recorded.The arterial sheath was p ulled and a TR Band was applied for hemostasis. 15CC AIR CORONARY ANGIOGRAPHY DOMINANCE: Right Dominant LEFT HEART ASSESSMENT Left Ventricular Ejection Fraction: by LV Gram 60 % Normal LV wall motion Normal Left Ventricular systolic function Normal Left Ventricular systolic function LEFT MAIN: Angiographically normal LEFT ANTERIOR DECENDING ARTERY: Angiographically normal CIRCUMFLEX ARTERY: Angiographically normal RIGHT CORONARY ARTERY: Angiographically normal COMPLICATIONS No Complications PROCEDURE MEDICATIONS Versed 1 mg IV Fentanyl 50 mcg IV Versed 1 mg IV Oxygen: 2 L/min via nasal cannula Heparin diluted in 23cc Heparinized saline. Patient given 10cc IA of this solution. 07/21/2017 13:07: 15 Verapamil 2.5mg, Ntg 100mcgs, 2000 units of Heparin diluted in 23cc Heparinized saline. Patient give n 10cc IA of this solution. 07/21/2017 13:07:15 SUMMARY OF HEMODYNAMIC DATA Time AIR REST ECG 12:28:26 AO 122/78 (98) SA 13:09:40 LV 132/13, 31 13:19:38 LV 133/14, 31 13:19:45 LV 134/13, 30 13:20:52 LVp 128/17, 32 13:20:54 AOp 129/81 (104) 13:20:59 Signed By Omer Wray MD On 07/21/2017 13:27:57 Omer Wray MD
--- NOTE | 2017-07-21 13:30 | PCM.PN.BLA ---
Progress Note Cardiac catheterization performed today which demonstrated the following: Left main coronary artery normal. Left anterior descending artery normal. Left circumflex artery normal. Right coronary artery dominant and normal. Preserved ejection fraction. Based on the above radiographic findings I would recommend discontinuing the metoprolol treating his hypertension and following him as an as an outpatient.
--- NOTE | 2017-07-21 15:20 | DCINST_ITS ---
- Discharge Diagnoses Current Active Problems: Current Active and Chronic Problems (Last Updated 07/20/17 @ 14:27 by Melly Foster ) Chest pressure (Acute) Morbid obesity with BMI of 40.0-44.9, adult (Chronic) Bradycardia (Acute) Dehydration (Acute) Asthma (Chronic) You will use the following diet at home:: Calorie/Carbohydrate Controlled ( specify 1200, 1400, etc), Cardiac Discharge Activity: - - Follow post-op cath instructions. Call your doctor if your incision/area has: Continuous Slow Oozing, Sudden Increased Bleeding, Increased Pain/ Swelling, Increased Redness, Foul Smelling Discharge, Swelling at the incision site Call your doctor if you observe: Shortness of breath, Dizziness, Fainting spells , Chest pain, Increased palpitations (irregular heartbeat) Allergies/Adverse Reactions: Allergies Hay Fever Allergy (Uncoded 07/21/17 03:04) Other Medications to take at Discharge aspirin 325 mg tablet,delayed release 325 mg PO QDAY 07/20/17 Albuterol Inhaler [Ventolin Hfa] 2 puff INHALATION Q6H PRN PRN 07/21/17 Lisinopril [Zestril] 10 mg PO DAILY #30 tab 07/21/17 Potassium (Otc) [Potassium OTC] 99 mg PO DAILY 07/21/17 Symbicort 160-4.5 Mcg Inhaler 2 puff INHALATION BID PRN 07/21/17 The following prescriptions were given: Lisinopril [Zestril] 10 mg PO DAILY #30 tab Primary Care Physician: J Carlos Reynoso MD [Primary Care Provider] - Please follow up with your Primary Care Physician in: 1 Week Please Follow Up With: Omer Wray MD When: 1-2 Weeks Proposed Discharge Date: 07/21/17
--- NOTE | 2017-07-21 15:22 | PCM.DC.SUM ---
<Anabelle Oshea - Last Filed: 07/21/17 15:27> Discharge Date and Diagnosis Date of Admission: 07/21/17 Date of Discharge: 07/21/17 - Primary Discharge Diagnosis Active and Suspected Problems (Last Updated 07/20/17 @ 14:27 by Melly Foster) 1. Atypical chest pain-ACS ruled out 2. Bradycardia 3. Mild Dehydration - Secondary Discharge Diagnosis Chronic Problems (Last Updated 07/20/17 @ 14:27 by Melly Foster) Morbid obesity with BMI of 40.0-44.9, adult (Chronic) Asthma (Chronic) History of cardiac radiofrequency ablation (Chronic) 06/20/05 @ [facility] per Dr. Lucas Atrial fibrillation (Chronic) Hospital Course and Treatment Imaging Results: Diagnostic Data Chest X-Ray 07/21/17 00:38 IMPRESSION: Borderline cardiomegaly. The cardiac silhouette is larger than it was on the previous radiograph. Electronically Signed: Shana Reynoso MD at 1:51 EDT , Service support , Dr. Wray- Cardiology Operations: None Procedures: Cardiac catheterization Summary of Care Provided: Patient is a 62-year-old male admitted 07/21/2017 due to chest pressure with associated diaphoresis, lightheadedness and shortness of breath. He has a past medical history of asthma, atrial fibrillation status post radiofrequency ablation, morbid obesity. 1. Chest pain-troponin negative ?3. Cardiology consulted. Patient follows with Dr. Wray as outpatient. He underwent cardiac catheterization which demonstrated normal coronary arteries and preserved ejection fraction. His metoprolol was recently discontinued due to bradycardia. He was started on lisinopril for hypertension. Vitals stable. We will continue outpatient follow-up with Dr. Wray in 1-2 weeks. Blood pressure at discharge 121/77, heart rate 56. 2. History of atrial fibrillation status post radiofrequency ablation ?4-currently sinus bradycardia. No further occurrences. 3. Chronic asthma-no acute exacerbation. 4. Morbid obesity-encouraged diet and lifestyle modifications. General: Alert, Oriented x3, Cooperative, No apparent distress HEENT: Atraumatic, PERRLA, EOMI, Normocephalic Neck: Supple, No JVD, Negative Carotid Bruits Lungs: Clear to auscultation, Diminished Cardiovascular: Regular Rhythm, Normal S1, Normal S2, No murmurs, Bradycardic Abdomen: Bowel Sounds Present, Soft, Non Tender, Non-Distended, Obese Extremities: No clubbing, No cyanosis, No edema, Capillary Refill Less than 3 Seconds Skin: No rashes, No breakdown Musculoskeletal: No Tenderness to Palpation of Joints or Extremities Neurological: Cranial nerves II-XII grossly intact, Neuro grossly intact Psych/Mental Status: Normal Affect, Appropriate Patient seen and examined prior to discharge. Physical assessment as noted above. Patient is stable for discharge home with the follow-up recommendations as noted above. This patient was seen by JOHNNA Eubanks under the supervision of Dr. Russo. Discharge Diet: Low fat/ Low Cholesterol Discharge Activity: - - Follow post-op cath instructions. Call your doctor if your incision/area has: Continuous Slow Oozing, Sudden Increased Bleeding, Increased Pain/ Swelling, Increased Redness, Foul Smelling Discharge, Swelling at the incision site Call your doctor if you observe: Shortness of breath, Dizziness, Fainting spells, Chest pain, Increased palpitations (irregular heartbeat) Home Medications: Medications to take at Discharge aspirin 325 mg tablet,delayed release 325 mg PO QDAY 07/20/17 Albuterol Inhaler [Ventolin Hfa] 2 puff INHALATION Q6H PRN PRN 07/21/17 Lisinopril [Zestril] 10 mg PO DAILY #30 tab 07/21/17 Potassium (Otc) [Potassium OTC] 99 mg PO DAILY 07/21/17 Symbicort 160-4.5 Mcg Inhaler 2 puff INHALATION BID PRN 07/21/17 Following Prescrptions Were Given to Patient: Lisinopril [Zestril] 10 mg PO DAILY #30 tab Primary Care Physician: J Carlos Reynoso MD [Primary Care Provider] - Please follow up with your Primary Care Physician in: 1 Week Please Follow Up With: Omer Wray MD When: 1-2 Weeks Disposition: Home Minutes spent on discharge:: 35 Patient Condition:: Stable Medical Necessity - Tobacco Use Smoking Status: Former smoker Tobacco Use: Non-smoker Meaningful Use Info Meaningful Use Diagnoses (Choose all that apply): None applicable <Shaq Russo - Last Filed: 07/21/17 17:30> Discharge Date and Diagnosis - Secondary Discharge Diagnosis Chronic Problems (Last Updated 07/20/17 @ 14:27 by Melly Foster) Morbid obesity with BMI of 40.0-44.9, adult (Chronic) Asthma (Chronic) History of cardiac radiofrequency ablation (Chronic) 06/20/05 @ [facility] per Dr. Lucas Atrial fibrillation (Chronic) Hospital Course and Treatment Summary of Care Provided: This patient was seen in conjunction with OCCUPATIONAL THERAPY SUPERVISORAnabelle. I have independently interviewed and examined the patient and reviewed pertinent history, examination findings, laboratory and plan of management. I have reviewed the note and agree with the documented findings with the few additional points. In brief, patient is admitted for chest pain and sinus bradycardia. Patient had cardiac cath today because of suspicion of unstable angina. Cardiac cath showed normal coronary arteries with preserved EF. Discharge medication reconciliation done. I have discussed my assessment with Anabelle PAN and orders have been reviewed. [] Code Visit OBSV E&M: 24282 Observation care discharge
--- NOTE | 2017-07-21 15:26 | DS.PCM_ITS ---
<Anabelle Oshea - Last Filed: 07/21/17 15:27> Discharge Date and Diagnosis Date of Admission: 07/21/17 Date of Discharge: 07/21/17 - Primary Discharge Diagnosis Active and Suspected Problems (Last Updated 07/20/17 @ 14:27 by Melly Foster) 1. Atypical chest pain-ACS ruled out 2. Bradycardia 3. Mild Dehydration - Secondary Discharge Diagnosis Chronic Problems (Last Updated 07/20/17 @ 14:27 by Melly Foster) Morbid obesity with BMI of 40.0-44.9, adult (Chronic) Asthma (Chronic) History of cardiac radiofrequency ablation (Chronic) 06/20/05 @ [facility] per Dr. Lucas Atrial fibrillation (Chronic) Hospital Course and Treatment Imaging Results: Diagnostic Data Chest X-Ray 07/21/17 00:38 IMPRESSION: Borderline cardiomegaly. The cardiac silhouette is larger than it was on the previous radiograph. Electronically Signed: Shana Reynoso MD at 1:51 EDT , Service support , Dr. Wray- Cardiology Operations: None Procedures: Cardiac catheterization Summary of Care Provided: Patient is a 62-year-old male admitted 07/21/2017 due to chest pressure with associated diaphoresis, lightheadedness and shortness of breath. He has a past medical history of asthma, atrial fibrillation status post radiofrequency ablation, morbid obesity. 1. Chest pain-troponin negative ?3. Cardiology consulted. Patient follows with Dr. Wray as outpatient. He underwent cardiac catheterization which demonstrated normal coronary arteries and preserved ejection fraction. His metoprolol was recently discontinued due to bradycardia. He was started on lisinopril for hypertension. Vitals stable. We will continue outpatient follow -up with Dr. Wray in 1-2 weeks. Blood pressure at discharge 121/77, heart rate 56. 2. History of atrial fibrillation status post radiofrequency ablation ?4- currently sinus bradycardia. No further occurrences. 3. Chronic asthma-no acute exacerbation. 4. Morbid obesity-encouraged diet and lifestyle modifications. General: Alert, Oriented x3, Cooperative, No apparent distress HEENT: Atraumatic, PERRLA, EOMI, Normocephalic Neck: Supple, No JVD, Negative Carotid Bruits Lungs: Clear to auscultation, Diminished Cardiovascular: Regular Rhythm, Normal S1, Normal S2, No murmurs, Bradycardic Abdomen: Bowel Sounds Present, Soft, Non Tender, Non-Distended, Obese Extremities: No clubbing, No cyanosis, No edema, Capillary Refill Less than 3 Seconds Skin: No rashes, No breakdown Musculoskeletal: No Tenderness to Palpation of Joints or Extremities Neurological: Cranial nerves II-XII grossly intact, Neuro grossly intact Psych/Mental Status: Normal Affect, Appropriate Patient seen and examined prior to discharge. Physical assessment as noted above. Patient is stable for discharge home with the follow-up recommendations as noted above. This patient was seen by JOHNNA Eubanks under the supervision of Dr. Russo. Discharge Diet: Low fat/ Low Cholesterol Discharge Activity: - - Follow post-op cath instructions. Call your doctor if your incision/area has: Continuous Slow Oozing, Sudden Increased Bleeding, Increased Pain/ Swelling, Increased Redness, Foul Smelling Discharge, Swelling at the incision site Call your doctor if you observe: Shortness of breath, Dizziness, Fainting spells , Chest pain, Increased palpitations (irregular heartbeat) Home Medications: Medications to take at Discharge aspirin 325 mg tablet,delayed release 325 mg PO QDAY 07/20/17 Albuterol Inhaler [Ventolin Hfa] 2 puff INHALATION Q6H PRN PRN 07/21/17 Lisinopril [Zestril] 10 mg PO DAILY #30 tab 07/21/17 Potassium (Otc) [Potassium OTC] 99 mg PO DAILY 07/21/17 Symbicort 160-4.5 Mcg Inhaler 2 puff INHALATION BID PRN 07/21/17 Following Prescrptions Were Given to Patient: Lisinopril [Zestril] 10 mg PO DAILY #30 tab Primary Care Physician: J Carlos Reynoso MD [Primary Care Provider] - Please follow up with your Primary Care Physician in: 1 Week Please Follow Up With: Omer Wray MD When: 1-2 Weeks Disposition: Home Minutes spent on discharge:: 35 Patient Condition:: Stable Medical Necessity - Tobacco Use Smoking Status: Former smoker Tobacco Use: Non-smoker Meaningful Use Info Meaningful Use Diagnoses (Choose all that apply): None applicable <Shaq Russo - Last Filed: 07/21/17 17:30> Discharge Date and Diagnosis - Secondary Discharge Diagnosis Chronic Problems (Last Updated 07/20/17 @ 14:27 by Melly Foster) Morbid obesity with BMI of 40.0-44.9, adult (Chronic) Asthma (Chronic) History of cardiac radiofrequency ablation (Chronic) 06/20/05 @ [facility] per Dr. Lucas Atrial fibrillation (Chronic) Hospital Course and Treatment Summary of Care Provided: This patient was seen in conjunction with BATCH OPERATORAnabelle. I have independently interviewed and examined the patient and reviewed pertinent history, examination findings, laboratory and plan of management. I have reviewed the note and agree with the documented findings with the few additional points. In brief, patient is admitted for chest pain and sinus bradycardia. Patient had cardiac cath today because of suspicion of unstable angina. Cardiac cath showed normal coronary arteries with preserved EF. Discharge medication reconciliation done. I have discussed my assessment with Anabelle PAN and orders have been reviewed. [] Code Visit OBSV E&M: 94965 Observation care discharge
== END 2017-07-21 15:20 | disposition home or self-care (01) ==
LOC: ED 01:05 → PCU 02:08
PROVIDERS: Admitting Provider Internal Medicine; Emergency Provider Emergency Medicine; Family Provider Family Medicine; PCP Family Medicine; Visit Provider Internal Medicine
DX: R07.89 Other chest pain (principal); R42 Dizziness and giddiness; J45.909 Unspecified asthma, uncomplicated; E66.01 Morbid (severe) obesity due to excess calories; Z68.41 Body mass index [BMI] 40.0-44.9, adult; Z71.3 Dietary counseling and surveillance; I48.2 Chronic atrial fibrillation; Z79.899 Other long term (current) drug therapy; Z79.82 Long term (current) use of aspirin; Z87.891 Personal history of nicotine dependence; R00.1 Bradycardia, unspecified; I48.0 Paroxysmal atrial fibrillation; L30.1 Dyshidrosis [pompholyx]; E86.0 Dehydration
CPT/HCPCS: 36415; 71046; 80048; 80061; 80076; 81001; 83735; 84443; 84484; 85025; 85610; 85730; 93005; 93458; 97802; 99152; 99153; 99285; J3010; Q9967; A4216; C1894

== ENCOUNTER → 2017-07-26 14:00 | Outpatient (CLI) | payer OTHER, SELFPAY | PROVIDERS: Family Provider Family Medicine; PCP Family Medicine; Visit Provider Internal Medicine Cardiovascular Disease | DX: I48.91 Unspecified atrial fibrillation (principal); R06.02 Shortness of breath; R00.1 Bradycardia, unspecified; Z98.890 Other specified postprocedural states | CPT/HCPCS: 93225; 93226 ==

== ENCOUNTER → 2017-07-28 16:23 | Outpatient (CLI) | payer OTHER, SELFPAY | PROVIDERS: Family Provider Family Medicine; PCP Family Medicine; Visit Provider Family Medicine | DX: Z12.5 Encounter for screening for malignant neoplasm of prostate (principal) | CPT/HCPCS: 36415; 84153; G0103 ==

== ENCOUNTER → 2017-10-11 18:10 | Outpatient (CLI) | payer OTHER, SELFPAY ==
[2017-10-11 21:17] LABS: M R Staph aureus DNA By PCR Negative (Negative); Probe Check PASS; Specimen Processing Control PASS; Staph aureus DNA By PCR NEGATIVE (Negative)
== END ==
PROVIDERS: Family Provider Family Medicine; PCP Family Medicine; Visit Provider Podiatrist
DX: L60.0 Ingrowing nail (principal)
CPT/HCPCS: 87070; 87077; 87186; 87205; 87640

== ENCOUNTER → 2017-12-12 16:50 | Outpatient (CLI) | payer OTHER, SELFPAY | PROVIDERS: Family Provider Family Medicine; PCP Family Medicine; Visit Provider Internal Medicine Cardiovascular Disease | DX: I48.4 Atypical atrial flutter (principal); Z95.0 Presence of cardiac pacemaker | CPT/HCPCS: 71046 ==

== ENCOUNTER → 2018-05-23 15:08 | Outpatient (CLI) | payer OTHER, SELFPAY ==
[2018-01-19 14:37] VITALS: BMI 44.3
[2018-05-23 16:01] LABS: Anion Gap 7 (5-15); BUN 16 mg/dL (7-18); BUN/Creat Ratio 19.3 RATIO (10-20); Calcium,Total 9.1 mg/dL (8.5-10.1); Chloride 107 mmol/L (98-107); Creatinine, Serum 0.83 mg/dL (0.70-1.30); EST Glomerular Filtration Rate 100 mL/min (>60); Est Glom Filt Rate - Afr Amer 121 mL/min (>60); Glucose 85 mg/dL (74-106); Potassium 3.9 mmol/L (3.5-5.1); Sodium Level 144 mmol/L (136-145)
[2018-05-23 16:13] LABS: BNP,B-Type NATRIURETIC PEPTIDE 111.6 pg/mL (0-100)
== END ==
PROVIDERS: Family Provider Family Medicine; PCP Family Medicine; Referring Provider Internal Medicine Cardiovascular Disease; Visit Provider Internal Medicine Cardiovascular Disease
DX: Z98.890 Other specified postprocedural states (principal); Z95.0 Presence of cardiac pacemaker
CPT/HCPCS: 36415; 80048; 83880

== ENCOUNTER → 2018-06-07 14:48 | Outpatient (CLI) | payer OTHER, SELFPAY ==
[2018-01-19 14:37] VITALS: BMI 44.3
--- NOTE | 2018-06-07 14:49 | ECHOD_ITS ---
Reason For Study: SOB Procedure This was a 2D Doppler, Color Flow transthoracic echocardiogram. Exam performed in department. Left Ventricle Normal LV size. Moderate concentric left ventricular hypertrophy. Left ventricular systolic function is normal. The estimated ejection fraction is 65 %. Stage 2 diastolic dysfunction. No regional wall motion abnormalities noted. Atria The left atrium is mildly enlarged. The right atrium is mildly enlarged. Mitral Valve Normal mitral valve. Tricuspid Valve Normal tricuspid valve. Mild (1+) tricuspid valve insufficiency. Pulmonary artery systolic pressure is 40 mmHg. Aortic Valve Normal aortic valve. Trisinus/trileaflet aortic valve. Pulmonic Valve Normal pulmonic valve. Great Vessels Normal aortic root. The pulmonary artery is normal size. Normal inferior vena cava. Pericardium/Pleural No pericardial effusion. MMode/2D Measurements & Calculations LVIDd: 5.5 cm IVSd: 1.5 cm Ao root diam: 3.3 cm LVIDs: 3.0 cm LVPWd: 1.4 cm RVDd: 4.3 cm FS: 46.0 % LAV(MOD-bp): 72.9 ml LVAd ap4: 32.0 cm2 SV(MOD-sp4): 65.8 ml LAV(MOD-bp) Indexed: 28.0 ml/m2 EDV(MOD-sp4): 99.9 ml LAV(MOD-sp2): 71.9 ml EDV(sp4-el): 103.6 ml LAV(MOD-sp4): 72.1 ml LVAs ap4: 15.9 cm2 ESV(MOD-sp4): 34.1 ml ESV(sp4-el): 30.8 ml EF(MOD-sp4): 65.9 % EF(sp4-el): 70.3 % SV(sp4-el): 72.8 ml LA A4 area: 23.6 cm2 LA dimension(2D): 5.0 cm RA A4 area: 24.2 cm2 Time Measurements MV dec time: 0.29 sec Doppler Measurements & Calculations MV E max puma: 64.0 cm/sec Lat Peak E' Puma: 7.6 cm/sec Med Peak E' Puma: 8.9 cm/sec MV A max puma: 51.1 cm/sec E/E' lat: 8.5 E/E' med: 7.2 MV E/A: 1.3 Ao V2 max: 177.0 cm/sec LV V1 max: 158.9 cm/sec PA V2 max: 203.3 cm/sec Ao max P.5 mmHg LV V1 max P.1 mmHg TR max puma: 300.2 cm/sec TR max P.2 mmHg Interpretation Summary Normal LV size. Moderate concentric left ventricular hypertrophy. Left ventricular systolic function is normal. The estimated ejection fraction is 65 %. Stage 2 diastolic dysfunction. Pulmonary artery systolic pressure is 40 mmHg. Ordering Physician: Omer Wray Referring Physician: EVELYN KRUSE Performed By: Janine Villafana RDCS
== END ==
PROVIDERS: Family Provider Family Medicine; PCP Family Medicine; Referring Provider Internal Medicine Cardiovascular Disease; Visit Provider Internal Medicine Cardiovascular Disease
DX: I48.91 Unspecified atrial fibrillation (principal); R06.02 Shortness of breath; Z95.0 Presence of cardiac pacemaker
CPT/HCPCS: 93306

== ENCOUNTER 2018-06-11 05:51 | Emergency (ER) | payer OTHER, SELFPAY ==
[2018-01-19 14:37] VITALS: BMI 44.3
[2018-06-11 05:52] VITALS: BP 148/84; PULSE 80; RESP 18; TEMP 36.4; O2SAT 97; BMI 45.3
--- NOTE | 2018-06-11 06:19 | RAD_ITS ---
HISTORY: PALPITATIONS AND SOB EXAM:XR Chest 2 Views: COMPARISON: 12/12/2017 FINDINGS: EKG leads in place. Normal heart size. No vascular congestion, pleural effusion, or acute pulmonary infiltration. No pneumothorax. The bony thorax appears intact. RAD/Chest PA and Lateral IMPRESSION: No acute cardiopulmonary disease. No significant interval change. at 0614 Reported and signed by: Robe Malhotra MD Electronically Signed: Robe Malhotra, at 6:50 EST Tel , Service support ,
--- NOTE | 2018-06-11 06:19 | EKG12_ITS ---
Test Reason : PALPITATIONS Blood Pressure : / mmHG Vent. Rate : 080 BPM Atrial Rate : 080 BPM P-R Int : 272 ms QRS Dur : 096 ms QT Int : 376 ms P-R-T Axes : 032 -43 041 degrees QTc Int : 433 ms Sinus rhythm with 1st degree A-V block Left axis deviation Abnormal ECG Confirmed by LAISHA UGALDE, REI ([id number]), food expeditor CYNTHIA KRUSE ([id number]) on 06/14/2018 1:16:56 PM Referred By: Rei Wray Confirmed By:REI WRAY MD
[2018-06-11 06:38] LABS: Absolute Lymphocyte Count 2.39 X10^3/ul (0.83-4.51); Absolute Neutrophil Count 3.3 X10^3/uL (2.0-7.7); Basophil# 0.05 X10^3/uL; Basophil% 0.8 % (0-1); Eosinophil# 0.27 X10^3/uL; Eosinophils% 4.1 % (0-5); Hematocrit 42.9 % (40-54); Hemoglobin 14.3 g/dl (13.0-16.5); Lymphocyte # 2.39 X10^3/ul (4.0); Lymphocyte % 36.2 % (19-41); Mean Corp Hgb Conc 33.3 g/gl (32-36); Mean Platelet Vol. 11.2 fl (6.2-12.0); Monocyte# 0.62 X10^3/uL; Monocyte% 9.4 % (0-10); Neutrophil # 3.25 X10^3/uL (2.7-7.7); Neutrophil % 49.2 % (47-70); Platelet Count 177 K/mm3 (150-450); RBC Distribution Width CV 12.8 % (11.6-14.6); RBC Distribution Width SD 39.9 fl (35.1-43.9); Red Blood Count 4.93 M/mm3 (4.6-6.2); White Blood Count 6.6 K/mm3 (4.4-11.0)
[2018-06-11 06:40] LABS: POSITIVE COUNT NO; POSITIVE DIFFERENTIAL NO; POSITIVE MORPHOLOGY NO
[2018-06-11 06:49] LABS: Anion Gap 5 (5-15); BUN 21 mg/dL (7-18); Calcium,Total 8.6 mg/dL (8.5-10.1); Chloride 109 mmol/L (98-107); Creatinine, Serum 0.84 mg/dL (0.70-1.30); EST Glomerular Filtration Rate 99 mL/min (>60); Est Glom Filt Rate - Afr Amer 119 mL/min (>60); Estimated Creatinine Clearance 101.36 ml/min; Glucose 89 mg/dL (74-106); Potassium 3.9 mmol/L (3.5-5.1); Sodium Level 142 mmol/L (136-145)
--- NOTE | 2018-06-11 07:32 | ED.VISSUMM ---
- ER Visit Summary Date of Service: 06/11/18 Chief Complaint: Palpitations, short of breath History of Present Illness: The patient is a 63 M who presents with palpitations and shortness of breath. This been going on for 8 hours. He has a history of prior similar symptoms. He has a history of sick sinus syndrome. He has a pacemaker. No coronary disease. He also complains of some shortness of breath. No chest pain. No fevers or vomiting. Physical Examination: Afebrile vitals unremarkable Heart regular rate and rhythm Lungs are clear Abdomen soft Extremities nontender Alert Test Results: EKG shows sinus rhythm with a first-degree AV block at a rate of 80. Repeat EKG shows paced rhythm at a rate of 80. Two-view chest x-ray shows no acute disease. CBC BMP unremarkable. Troponin negative. Emergency Department Course and Treatment: In observing the patient's monitor it appears that when he changes rhythm from his [place] rhythm to paced his when he develops palpitations. This may be the cause of his symptoms. Lab work otherwise normal unremarkable chest x-ray. I did speak to his cloth examiner hand, Dr. Wray. Patient will be sent up to the office for pacemaker interrogation. Treatment Plan: [] Disposition: Discharge Impression: Palpitations This note was generated with [employer] dictation software. It may contain incorrect words, spelling, and punctuation that were not noted in review of the chart prior to signing ED Disposition - Plan for ED Patient: Referrals: J Carlos Reynoso MD [Primary Care Provider] -
--- NOTE | 2018-06-11 07:34 | ED.DEP ---
ED Disposition - Plan for ED Patient: Instructions: ED Palpitations Referrals: J Carlos Reynoso MD [Primary Care Provider] -
[2018-06-11 07:51] VITALS: BP 128/97; PULSE 81; RESP 15; O2SAT 95
[2018-06-11 07:57] VITALS: BP 128/77; PULSE 82; RESP 15; O2SAT 95
--- NOTE | 2018-06-11 09:16 | PCM.CONS.C ---
Reason for Consult Date of Consultation: 06/11/18 Reason for Consultation: Irregular heartbeat History of Present Illness: JANELLE QUIÑONES, is a 63 M who presented to the emergency room with palpitations. He is a gentleman with a history of atrial tachyarrhythmias status post ablation in 2005 and then 2007. He however presented here earlier last year with not feeling well and bradycardia arrhythmias. He was noted to be in a sinus bradycardia on the beta-damian and he had his beta-damian dose reduced. He however presented to the emergency room the next day with chest discomfort and not feeling well and he underwent a diagnostic cardiac catheterization which demonstrated essentially normal coronary arteries and preserved left ventricular systolic function. He continued to complain of palpitations and underwent a 24-hour Holter monitor which demonstrated atrial fibrillation and flutter comprising 65% total QRS complex morphology. He was placed on beta-damian again as well as flecainide but he says that he had been having problems with his heart rate and not feeling well. He was sent to the [facility] where he underwent radio frequency ablation in August 2017. There was extensive right atrial scar noted. He had prolonged sinus node recovery time and this required stopping the beta-damian. He underwent permanent pacemaker implantation and flecainide loading with Cardizem in November 2017. He continued to have symptomatic A. fib with an A. fib burden of approximately 1.2%. In December he was seen in the clinic and he was switched to sotalol and was placed on Xarelto. He says that he still has episodes where he feels that he goes into atrial fibrillation and he gets short of breath and fatigue. He had been referred for a sleep apnea evaluation as well. He has had no lynette dizziness or diaphoresis near syncope or syncope. He does have the sleep apnea test performed through the [facility] and will forward the results to us. In the emergency room he was noted to be intermittently pacing and I was called from the emergency room to evaluate him. I sent him to the office for an evaluation and he was noted to be in atrial flutter. It was therefore decided that he should be cardioverted today Past Medical History Allergies/Adverse Reactions: Allergies Hay Fever Allergy (Uncoded 05/23/18 13:30) Other Home Medications: Ambulatory Orders Medication Instructions Recorded Albuterol Inhaler [Ventolin Hfa] 2 puff INHALATION Q6H PRN PRN 07/21/17 Symbicort 160-4.5 Mcg Inhaler 2 puff INHALATION BID PRN 07/21/17 rivaroxaban 20 mg tablet 20 mg PO QPM #90 tab 08/16/17 lisinopril 20 mg tablet 20 mg PO DAILY 05/23/18 sotalol 120 mg tablet 120 mg PO Q12H 05/23/18 furosemide 40 mg tablet 40 mg PO DAILY #30 tab 05/24/18 Past Medical History (Chronic Problems): Chronic Problems (Last Reviewed 05/23/18 @ 14:52 by Omer Wray MD) Essential (primary) hypertension (Chronic) Chronic diastolic (congestive) heart failure (Chronic) Persistent atrial fibrillation (Chronic) Cardiac pacemaker in situ (Chronic 12/01/17) per Dr. Long @ [facility] Sick sinus syndrome (Chronic) Atypical atrial flutter (Chronic) Morbid obesity with BMI of 40.0-44.9, adult (Chronic) Bradycardia (Chronic) History of cardiac radiofrequency ablation (Chronic 09/21/17) 06/20/05 @ [facility] per Dr. Lucas: 09/21/[address] Long @ [facility] Surgical History: - - Bilateral arthroscopic surgery of the knees. Psychiatric History: No pertinent psych hx - *Family History Maternal Family History: Family History (Last Reviewed 05/23/18 @ 14:52 by Omer Wray MD) Other CVA (cerebral vascular accident) Cancer Diabetes Hypertension History Items: Diabetes Paternal Family History: Family History (Last Reviewed 05/23/18 @ 14:52 by Omer Wray MD) Other CVA (cerebral vascular accident) Cancer Diabetes Hypertension History Items: Cancer - Cannot remember if it is prostate or colon cancer Sibling Family History: Family History (Last Reviewed 05/23/18 @ 14:52 by Omer Wray MD) Other CVA (cerebral vascular accident) Cancer Diabetes Hypertension History Items: - - He has a half-brother who is secondary to lung cancer Smoking Status: Never smoker Alcohol: None Drugs: None Review of Systems - Review of Systems General: Denies: Fever, Night Sweats, Fatigue HEENT: Denies: Vision Change Cardiovascular: Reports: Palpitations. Denies: Chest Discomfort, Shortness of Breath, Orthopnea, PND, Peripheral Edema, Lightheadedness, Dizziness, Near Syncope, Syncope Respiratory: Denies: Cough, Sputum Production, Hemoptysis Gastrointestinal: Denies: Hematemesis, Hematochezia, Melena Genitourinary: Denies: Dysuria, Hematuria Skin: Denies: Rash Neurological: Denies: Dizziness Psychiatric: Denies: Anxiety Endocrine: Denies: Unexplained Weight Loss Hematologic/ Lymphatic: Denies: Anemia Subjectve: Pleasant gentleman in no apparent distress Objective: Vital Signs Temp Pulse Resp BP Pulse Ox 97.6 F L 82 15 128/77 H 95 06/11/18 05:52 06/11/18 07:57 06/11/18 07:57 06/11/18 07:57 06/11/18 07:57 Oxygen Flow Rate (L/min) 2 Oxygen Delivery Method Nasal Cannula Weight: 334 lb 14.115 oz Body Mass Index (BMI) 45.3 General: Awake, Alert, Oriented x 3 HEENT: PERRL, EOMI, Sclera Non Icteric Neck: Supple, Good ROM, No Lymph Node Enlargement Lungs: Clear to auscultation Cardiovascular: Irregular Rhythm, Normal S1, Normal S2, No Murmurs, No Rubs, No Gallops Vascular: No Carotid Bruits, Normal Femoral Pulses, Normal Radial Pulses, Normal Dorsalis Pedal Pulse, Normal Posterior Tibial Pulses Abdomen: Bowel Sounds Present, Soft, Non Tender, No HSM, No Organomegaly Extremities: No Cyanosis, No Clubbing, No edema Skin: No Rashes Lymphatic: No Lymph Node Enlargement Neurological: No Focal Motor or Sensory Deficit Psych/Mental Status: Appropriate 06/11/18 06:10: WBC 6.6, RBC 4.93, Hgb 14.3, Hct 42.9, MCV 87.0, MCH 29.0, MCHC 33.3, RDW 12.8, RDW Differential 39.9, Plt Count 177, MPV 11.2, Immature Gran % (Auto) 0.300, Neut % (Auto) 49.2, Lymph % (Auto) 36.2, [place] % (Auto) 9.4, Eos % (Auto) 4.1, Baso % (Auto) 0.8, Absolute Neuts (auto) 3.3, Total Counted Not Reportable 06/11/18 06:10: Sodium 142, Potassium 3.9, Chloride 109 H, Carbon Dioxide 28.0, Anion Gap 5, BUN 21 H, Creatinine 0.84, Est GFR (MDRD) Af Amer 119, Est GFR (MDRD) Non-Af 99, BUN/Creatinine Ratio 25.0 H, Glucose 89, Calcium 8.6, Troponin I < 0.015 Rhythm: EKG: ECHO: Stress Test: Cardiac Cath: PCI: CT Surgery: Holter monitor: EPS: PPM: CXR: Chest CT Scan: Assessment/Plan 1. Paroxysmal atrial flutter Patient has a history of paroxysmal atrial flutter. He is currently symptomatic. The plan would be for him to undergo a DC cardioversion especially as he has been on anticoagulation continuously. He remains on his sotalol. The above has been discussed with him and his and they understand and agreed to proceed. This will be carried out pending the necessary pre certification issues with his insurance. 2. Hypertension His blood pressure appears to be under fair control at this time we will continue to monitor him regarding the above. 3. Obstructive sleep apnea He did have a sleep study performed and this will be followed up through his appointment at the [facility] Thank you for allowing me to participate in the care of your patient. Please don't hesitate to call if any issues arise
--- NOTE | 2018-06-11 09:23 | CON.PCM_ITS ---
Reason for Consult Date of Consultation: 06/11/18 Reason for Consultation: Irregular heartbeat History of Present Illness: JANELLE QUIÑONES, is a 63 M who presented to the emergency room with palpitations. He is a gentleman with a history of atrial tachyarrhythmias status post ablation in 2005 and then 2007. He however presented here earlier last year with not feeling well and bradycardia arrhythmias. He was noted to be in a sinus bradycardia on the beta-damian and he had his beta-damian dose reduced. He however presented to the emergency room the next day with chest discomfort and not feeling well and he underwent a diagnostic cardiac catheterization which demonstrated essentially normal coronary arteries and preserved left ventricular systolic function. He continued to complain of palpitations and underwent a 24-hour Holter monitor which demonstrated atrial fibrillation and flutter comprising 65% total QRS complex morphology. He was placed on beta-damian again as well as flecainide but he says that he had been having problems with his heart rate and not feeling well. He was sent to the [facility] where he underwent radio frequency ablation in August 2017. There was extensive right atrial scar noted. He had prolonged sinus node recovery time and this required stopping the beta-damian. He underwent permanent pacemaker implantation and flecainide loading with Cardizem in November 2017. He continued to have symptomatic A. fib with an A. fib burden of approximately 1.2%. In December he was seen in the clinic and he was switched to sotalol and was placed on Xarelto. He says that he still has episodes where he feels that he goes into atrial fibrillation and he gets short of breath and fatigue. He had been referred for a sleep apnea evaluation as well. He has had no lynette dizziness or diaphoresis near syncope or syncope. He does have the s leep apnea test performed through the [facility] and will forward the results to us. In the emergency room he was noted to be intermittently pacing and I was called from the emergency room to evaluate him. I sent him to the office for an evaluation and he was noted to be in atrial flutter. It was therefore decided that he should be cardioverted today Past Medical History Allergies/Adverse Reactions: Allergies Hay Fever Allergy (Uncoded 05/23/18 13:30) Other Home Medications: Ambulatory Orders Medication Instructions Recorded Albuterol Inhaler [Ventolin Hfa] 2 puff INHALATION Q6H PRN PRN 07/21/17 Symbicort 160-4.5 Mcg Inhaler 2 puff INHALATION BID PRN 07/21/17 rivaroxaban 20 mg tablet 20 mg PO QPM #90 tab 08/16/17 lisinopril 20 mg tablet 20 mg PO DAILY 05/23/18 sotalol 120 mg tablet 120 mg PO Q12H 05/23/18 furosemide 40 mg tablet 40 mg PO DAILY #30 tab 05/24/18 Past Medical History (Chronic Problems): Chronic Problems (Last Reviewed 05/23/18 @ 14:52 by Omer Wray MD) Essential (primary) hypertension (Chronic) Chronic diastolic (congestive) heart failure (Chronic) Persistent atrial fibrillation (Chronic) Cardiac pacemaker in situ (Chronic 12/01/17) per Dr. Long @ [facility] Sick sinus syndrome (Chronic) Atypical atrial flutter (Chronic) Morbid obesity with BMI of 40.0-44.9, adult (Chronic) Bradycardia (Chronic) History of cardiac radiofrequency ablation (Chronic 09/21/17) 06/20/05 @ [facility] per Dr. Lucas: 09/21/[address] Long @ [facility] Surgical History: - - Bilateral arthroscopic surgery of the knees. Psychiatric History: No pertinent psych hx - *Family History Maternal Family History: Family History (Last Reviewed 05/23/18 @ 14:52 by Omer Wray MD) Other CVA (cerebral vascular accident) Cancer Diabetes Hypertension History Items: Diabetes Paternal Family History: Family History (Last Reviewed 05/23/18 @ 14:52 by Omer Wray MD) Other CVA (cerebral vascular accident) Cancer Diabetes Hypertension History Items: Cancer - Cannot remember if it is prostate or colon cancer Sibling Family History: Family History (Last Reviewed 05/23/18 @ 14:52 by Omer Wray MD) Other CVA (cerebral vascular accident) Cancer Diabetes Hypertension History Items: - - He has a half-brother who is secondary to lung cancer Smoking Status: Never smoker Alcohol: None Drugs: None Review of Systems - Review of Systems General: Denies: Fever, Night Sweats, Fatigue HEENT: Denies: Vision Change Cardiovascular: Reports: Palpitations. Denies: Chest Discomfort, Shortness of Breath, Orthopnea, PND, Peripheral Edema, Lightheadedness, Dizziness, Near Syncope, Syncope Respiratory: Denies: Cough, Sputum Production, Hemoptysis Gastrointestinal: Denies: Hematemesis, Hematochezia, Melena Genitourinary: Denies: Dysuria, Hematuria Skin: Denies: Rash Neurological: Denies: Dizziness Psychiatric: Denies: Anxiety Endocrine: Denies: Unexplained Weight Loss Hematologic/ Lymphatic: Denies: Anemia Subjectve: Pleasant gentleman in no apparent distress Objective: Vital Signs Temp Pulse Resp BP Pulse Ox 97.6 F L 82 15 128/77 H 95 06/11/18 05:52 06/11/18 07:57 06/11/18 07:57 06/11/18 07:57 06/11/18 07:57 Oxygen Flow Rate (L/min) 2 Oxygen Delivery Method Nasal Cannula Weight: 334 lb 14.115 oz Body Mass Index (BMI) 45.3 General: Awake, Alert, Oriented x 3 HEENT: PERRL, EOMI, Sclera Non Icteric Neck: Supple, Good ROM, No Lymph Node Enlargement Lungs: Clear to auscultation Cardiovascular: Irregular Rhythm, Normal S1, Normal S2, No Murmurs, No Rubs, No Gallops Vascular: No Carotid Bruits, Normal Femoral Pulses, Normal Radial Pulses, Normal Dorsalis Pedal Pulse, Normal Posterior Tibial Pulses Abdomen: Bowel Sounds Present, Soft, Non Tender, No HSM, No Organomegaly Extremities: No Cyanosis, No Clubbing, No edema Skin: No Rashes Lymphatic: No Lymph Node Enlargement Neurological: No Focal Motor or Sensory Deficit Psych/Mental Status: Appropriate 06/11/18 06:10: WBC 6.6, RBC 4.93, Hgb 14.3, Hct 42.9, MCV 87.0, MCH 29.0, MCHC 33.3, RDW 12.8, RDW Differential 39.9, Plt Count 177, MPV 11.2, Immature Gran % (Auto) 0.300, Neut % (Auto) 49.2, Lymph % (Auto) 36.2, [place] % (Auto) 9.4, Eos % (Auto) 4.1, Baso % (Auto) 0.8, Absolute Neuts (auto) 3.3, Total Counted Not Reportable 06/11/18 06:10: Sodium 142, Potassium 3.9, Chloride 109 H, Carbon Dioxide 28.0, Anion Gap 5, BUN 21 H, Creatinine 0.84, Est GFR (MDRD) Af Amer 119, Est GFR (MDRD) Non-Af 99, BUN/Creatinine Ratio 25.0 H, Glucose 89, Calcium 8.6, Troponin I < 0.015 Rhythm: EKG: ECHO: Stress Test: Cardiac Cath: PCI: CT Surgery: Holter monitor: EPS: PPM: CXR: Chest CT Scan: Assessment/Plan 1. Paroxysmal atrial flutter * Patient has a history of paroxysmal atrial flutter. He is currently symptomatic. The plan would be for him to undergo a DC cardioversion especially as he has been on anticoagulation continuously. He remains on his sotalol. The above has been discussed with him and his and they understand and agreed to proceed. * This will be carried out pending the necessary pre certification issues with his insurance. * 2. Hypertension * His blood pressure appears to be under fair control at this time we will continue to monitor him regarding the above. * 3. Obstructive sleep apnea * He did have a sleep study performed and this will be followed up through his appointment at the [facility] * * Thank you for allowing me to participate in the care of your patient. Please don't hesitate to call if any issues arise
== END 2018-06-11 07:57 | disposition home or self-care (01) ==
LOC: ED 06:30
PROVIDERS: Emergency Provider Emergency Medicine; Family Provider Family Medicine; PCP Family Medicine
DX: R00.2 Palpitations (principal); I44.0 Atrioventricular block, first degree; J44.9 Chronic obstructive pulmonary disease, unspecified; I10 Essential (primary) hypertension; Z95.0 Presence of cardiac pacemaker
CPT/HCPCS: 71046; 80048; 84484; 85025; 93005; 99284

== ENCOUNTER 2018-06-11 08:53 | Outpatient (CLI) | payer OTHER, SELFPAY ==
[2018-06-11 05:52] VITALS: BMI 45.3
[2018-06-11 11:52] VITALS: BMI 47.9
--- NOTE | 2018-06-11 12:28 | PCM.PN.BLA ---
Progress Note Operative note. DC cardioversion. 63-year-old man with a history of atrial flutter with variable block. The patient was brought to the cardiac catheterization lab in the postabsorptive nonsedated state. Patient was seen by Dr. John of the critical care division. Informed consent was obtained. Anterior-posterior pads were applied. The patient was administered 100 mg of intravenous propofol. 300 J of synchronized DC cardioversion energy were applied with prompt reversal to sinus rhythm. Postoperative EKG confirmed a paced V sensed and the patient's pacemaker was checked afterwards. Conclusion: Successful DC cardioversion from atrial flutter to sinus rhythm and paced atrial rhythm. Continue anticoagulation Continue antiarrhythmic.
--- NOTE | 2018-06-11 15:19 | PCM.OPRPT ---
Problem List (1) Atypical atrial flutter Status: Chronic (2) Cardiac pacemaker in situ Status: Chronic Comment: per Dr. Long @ [facility] (3) Chronic diastolic (congestive) heart failure Status: Chronic (4) Essential (primary) hypertension Status: Chronic (5) History of cardiac radiofrequency ablation Status: Chronic Comment: 06/20/05 @ [facility] per Dr. Lucas: 09/21/[address] Long @ [facility] (6) Morbid obesity with BMI of 40.0-44.9, adult Status: Chronic (7) Sick sinus syndrome Status: Chronic Report of Operation Date of Procedure: 06/11/18 - Conscious sedation Pre-Operative Diagnosis: A flutter Post-Operative Diagnosis: A flutter Surgery/Procedure Performed:: Conscious sedation Description of Surgical Findings:: CONSCIOUS SEDATION REPORT BRIEF HISTORY OF PRESENT ILLNESS: The patient is a 63-year-old male who presented to [facility] for an outpatient cardioversion due to underlying atrial flutter. The patient reports no PO intake since midnight. The patient does not have a history of obstructive sleep apnea. The patient reports a history of smoking and COPD, but does not use inhalers routinely. The patient denies any recent constitutional symptoms such as fevers, chills, nausea or vomiting. The patient denies previous anesthetic complications. Patient is currently anticoagulated with Xarelto and has a last known EF of 65% PHYSICAL EXAMINATION: VITAL SIGNS: Reviewed and were acceptable. GENERAL: The patient is a , morbidly obese male, in no apparent distress, speaking in full sentences. HEENT: Normocephalic, atraumatic. Mucous membranes are moist and pink. Good mouth opening noted. Trachea is midline. Good neck mobility. MP IV CHEST: S1, S2 irregularly irregular. No murmurs, rubs or gallops were noted. LUNGS: Clear to auscultation bilaterally without appreciable wheezes, rales or rhonchi. ABDOMEN: Soft, nontender, nondistended. Positive bowel sounds. EXTREMITIES: There is no clubbing, cyanosis or edema. ASA Class: II DESCRIPTION OF PROCEDURE: After confirmation of informed consent, the patient's anesthesia plan was reviewed in detail. Propofol was chosen. Risks and benefits were reviewed and the patient agreed to proceed. At 11:46 AM, the patient was given 40 mg of propofol. The patient required a total of 100 mg of propofol throughout the procedure to achieve appropriate sedation. The patient achieved an appropriate level of sedation and received 1 attempt s synchronized cardioversion, at [address] Wray at the bedside. This was successful in achieving normal sinus rhythm. The patient was monitored until 11:52 AM, at which time the patient reached their baseline mental status and function. The patient tolerated the procedure well. COMPLICATIONS: None ESTIMATED BLOOD LOSS: None RECOMMENDATIONS: Okay to recover in usual fashion. Code Visit 9xxxx: Other Procedure See Report - [id number]
== END 2018-06-11 12:50 | disposition home or self-care (01) ==
PROVIDERS: Family Provider Family Medicine; PCP Family Medicine; Referring Provider Internal Medicine Cardiovascular Disease; Visit Provider Internal Medicine Cardiovascular Disease
DX: I48.92 Unspecified atrial flutter (principal); I48.1 Persistent atrial fibrillation; J45.909 Unspecified asthma, uncomplicated; E66.01 Morbid (severe) obesity due to excess calories; Z95.0 Presence of cardiac pacemaker; Z87.891 Personal history of nicotine dependence; Z98.890 Other specified postprocedural states; I50.32 Chronic diastolic (congestive) heart failure; I10 Essential (primary) hypertension; Z68.41 Body mass index [BMI] 40.0-44.9, adult
CPT/HCPCS: 92960; 93005; J7040

== ENCOUNTER → 2019-06-18 10:03 | Outpatient (CLI) | payer OTHER, SELFPAY ==
[2018-11-20 13:14] VITALS: BMI 46.3
--- NOTE | 2019-06-18 10:57 | RAD_ITS ---
STUDY: X-RAY CHEST REASON FOR EXAM: Male, 64 years old. Atrial fibrillation. Shortness of breath. TECHNIQUE: PA and lateral views of the chest. COMPARISON: June 11, 2018. FINDINGS: The lungs are clear and expanded. There is no demonstrated pleural abnormality. Normal size heart. Interval cardiac pacemaker. Normal mediastinum and geraldine. Normal visualized pulmonary arteries. Normal visualized aortic arch and descending thoracic aorta. Normal visualized thoracic spine. Normal visualized ribs, clavicles, and shoulders. There is no demonstrated abnormality of the visualized soft tissue structures of the upper abdomen. RAD/Chest PA and Lateral IMPRESSION: Cardiac pacemaker without acute cardiopulmonary disease or major interval change. Electronically Signed: Jordi Juarez DO at 23:50 EST Tel [phone], Service support ,
--- NOTE | 2019-06-21 10:16 | PFT ---
INTRODUCTION: The patient is a 64-year-old male that presents for pulmonary function studies secondary to a diagnosis of amiodarone dependency. Respiratory therapy reports good patient effort. Bronchodilators were used during testing. INTERPRETATION: Forced expiration spirometry demonstrates no evidence of a large airways obstructive ventilatory defect. There was no significant response to aerosolized bronchodilators. Spirograms are of good quality and plateau normally. Body plethysmography was performed and reveals lung volumes to be within normal limits. Diffusing capacity by single breath CO is mildly reduced at 73% of predicted. IMPRESSION: Isolated mild reduction in diffusing capacity. Otherwise, normal pulmonary function studies.
== END ==
PROVIDERS: PCP Family Medicine
DX: I48.0 Paroxysmal atrial fibrillation (principal)
CPT/HCPCS: 71046; 94060; 94726; 94729

== ENCOUNTER 2019-11-25 05:17 | Day surgery (SDC) | payer OTHER, SELFPAY ==
[2019-11-15 14:55] VITALS: BMI 45.1
[2019-11-22 20:38] LABS: Probe Check PASS; Specimen Processing Control PASS
--- NOTE | 2019-11-23 | COLBX_PTH ---
PATIENT: JANELLE QUIÑONES LOC: EN U#:[id number] AGE/SX: 64/M ROOM: RE11/25/[address]: Dr. Luis E Mcmahan MD : 1955 BED: DIS: 11/25/2019 SPEC #: [id number] RECD: 11/25/19 07:38 STATUS: FROY BRYANTTiffanie #: [id number] HERMILA: 11/23/19 00:[address]: Luis E Mcmahan DEPT: SURGICAL PATHOLOGY RECD BY: Ramiro Booth ENTERED: 11/25/19 08:37 SP TYPE: COLON BX OTHR DR: Dr. J Carlos Spaulding MD Tissues: Cecum, NOS Procedures: Surgery Specimen Level IV HEADER OPERATION: Colonoscopy (MAC) PRE-OP DIAGNOSIS: Hemorrhoids TISSUE SUBMITTED: Cecum polyp biopsy MICROSCOPIC DIAGNOSIS Cecal polyp, biopsy: Tubular adenoma. AM:maru 11/26/19 MICROSCOPIC DESCRIPTION Slides are reviewed. GROSS DESCRIPTION Received in fixative is one container labeled with the patient's name and designated cecum polyp biopsy. The specimen consists of multiple irregular fragments of light bo soft tissue that in aggregate measure 1.2 x 0.5 x 0.1 cm. The specimen is totally submitted in one cassette. / SJ:maru 11/25/19 TC:5 CPT: 33454
--- NOTE | 2019-11-25 05:42 | HP.PCM_ITS ---
Problem List (1) Hemorrhoids, internal, with bleeding Status: Acute History and Physical Date of Admission: 11/25/19 Intake Visit Reasons: Hemorrhoids Chief Complaint: hemorrhiods/fissure Photoresist Contact Printer Required: No Is patient in pain?: No Allergies Hay Fever Allergy (Uncoded 09/19/19 15:23) Other Medications Albuterol Inhaler [Ventolin Hfa] 2 puff INHALATION Q6H PRN PRN 07/21/17 [History Confirmed 11/15/19] lisinopril 20 mg tablet 20 mg PO DAILY 05/23/18 [History Confirmed 11/15/19] furosemide 40 mg tablet 40 mg PO DAILY #30 tab 05/28/19 [Rx Confirmed 11/15/19] amiodarone 200 mg tablet 200 mg PO DAILY 06/14/19 [History Confirmed 11/15/19] metoprolol succinate 50 mg tablet,extended release 24 hr 50 mg PO BID 06/14/19 [History Confirmed 11/15/19] rivaroxaban 20 mg tablet 20 mg PO QPM #90 tab 09/02/19 [Rx Confirmed 11/15/19] budesonide-formoterol HFA 160 mcg-4.5 mcg/actuation aerosol inhaler 2 puff INHALATION BID 09/19/19 [History Confirmed 11/15/19] PFSH Medical History (Updated 11/15/19 @ 16:[address] Luis E Mcmahan MD) Hemorrhoids, internal, with bleeding (Acute) Sick sinus syndrome (Chronic) Atypical atrial flutter (Chronic) Paroxysmal atrial fibrillation (Chronic) Secondary pulmonary arterial hypertension (Chronic) Essential (primary) hypertension (Chronic) Chronic diastolic (congestive) heart failure (Chronic) Bradycardia (Chronic) Asthma (Chronic) Morbid obesity with BMI of 40.0-44.9, adult (Chronic) Obstructive sleep apnea (Chronic) Surgical History (Updated 11/15/19 @ 14:56 by Yamileth Álvarez) Presence of permanent cardiac pacemaker (Chronic 12/01/17) History of colonoscopy (Acute ~2008) History of hemorrhoidectomy (Acute) History of cardiac radiofrequency ablation (Chronic 08/24/18) History of cardioversion (Resolved 06/11/18) History of left heart catheterization (Resolved 07/21/17) Family History (Updated 11/15/19 @ 14:58 by Yamileth Álvarez) Mother Diabetes Hypertension Father Cancer prostate Other CVA (cerebral vascular accident) Social History (Updated 11/15/19 @ 16:[address] Luis E Mcmahan MD) Smoking Status: Never smoker HPI HPI HPI: JANELLE QUIÑONES, is a 64 M who presents to the office today for surgical consultation regarding anal rectal pain and bleeding. The patient is referred by his primary care physician Dr. Spaulding and a written copy of my surgical consult recommendations will return to him Patient states that maybe 15 years ago he had a hemorrhoidectomy. He does not take a routine fiber supplement. About 2 weeks ago he had onset of bleeding and pressure and a palpable mass. He tried Preparation H with some improvement. He was then seen by FLORIN Sutherland and was prescribed hydrocortisone suppositories and she actually make the referral. He has improved on the conservative measures. He does have cardiac history having a pacemaker in place and atrial fibrillation for at least 10 years and anticoagulation with Xarelto. His BMI is high at 45.1. Body weight is 323 pounds. He has had a previous colonoscopy October 30, [address] Ignacio Liriano. That was a screening exam.That states it was done because of a family history of colon cancer but the patient instructs me that he does not have a family history of colon cancer but rather a family history of prostate cancer. He denies any abdominal pain. No unexpected weight loss. HPI HPI HPI: JANELLE QUIÑONES, is a 64 M who presents to the office today for ROS General General: Yes weight change and fatigue; no appetite, colon cancer, breast cancer or weakness HEENT HEENT: No difficulty swallowing, eye injury, eye surgery, swollen glands or hoarseness Endo Endocrine: No thyroid disease, diabetes mellitus, thyroid cancer, Hair loss, heat intolerance or cold intolerance Musc Musculoskeletal: Yes arthritis; no back problems, rheumatoid arthritis, gout or joint pain Cardio Cardiovascular: Yes pacemaker and atrial fibrillation; no murmur, heart disease, high blood pressure, heart attack, heart stent, palpitations, shortness of breat with exertion or chest pain Psych Psychiatric: Yes anxiety; no depression or hearing voices Resp Respiratory: Yes shortness of breath, Yes sleep apnea, No cough, No COPD, Yes asthma, No emphysema, No wheezing Gastro Gastrointestinal: No abdominal pain, No nausea or vomiting, No diarrhea, No constipation, Yes blood in stool, No acid reflux, Yes hemorrhoids, No ulcers, No gallbladder problem, No black,tarry stools Jose Hematologic: Yes blood thinners, No blood disorders, No bleeding, No anemia, No blood clots Neuro Neurologic: No weakness Exam Const General: cooperative, comfortable, no acute distress Nutritional Appearance: obese Orientation: alert, awake [facility] Head: normal to inspection Eyes General: appearance normal, both eyes and all related structures Resp Effort & Inspection: normal respiratory effort Auscultation: clear to auscultation bilaterally Cardio Rate: regular rate Heart Sounds: no murmurs GI Other: Notably overweight, I am not able to detect any internal organs, bowel sounds are present External anal exam not very remarkable for some small external hemorrhoids. Digital exam demonstrates tenderness and a ridge posteriorly. No blood noted on the examining glove. Patient discomfort was noted. Exam was abbreviated Musc Cervical Spine: normal cervical lordosis Neuro Cognition: normal cognition Extrem General: no calf tenderness Psych Affect: normal affect Assessment & Plan Problems 1. Hemorrhoids, internal, with bleeding K64.8 Plan Etiology to the anal pain and bleeding indeterminate. The patient is over 10 years since his previous colonoscopy. The findings may be consistent with internal hemorrhoid or anal fissure. I recommend diltiazem ointment to be applied to a hydrocortisone suppository twice daily for 2-week course. I recommend a colonoscopy with possible biopsy or polypectomy as indicated. Very careful anal rectal inspection will be pursued. He is aware of the technique, benefit, risk, alternatives. He has had an opportunity to ask and have questions answered. We will schedule and proceed at his discretion. I very much appreciate the kind opportunity of assisting with his surgical care. We will have him hold his Xarelto for 1 day. He will need a pacemaker check. His road machine runner is Dr. Omer Wray. We will utilize monitored anesthesia care because of his increased risk. He carries a history of bradycardia and chronic diastolic congestive heart failure. He has essential hypertension as well and a history of sick sinus syndrome. Cc: FLORIN Musa and Dr. J Carlos Spaulding and Dr. Omer Mcmahan M.D., F.A.C.S. Coding Level of Care Code 11244 Diagnoses Hemorrhoids, internal, with bleeding K64.8 I have re-examined the patient. There are no clinical changes since date of exam. Procedure Criteria Procedure Type: Elective COVID Risk Discussion: The surgeon/proceduralist and patient have discussed in detail the risk of exposure to and/or potential harm posed by the COVID-19 virus with having a surgery/procedure at this time versus the risk of delaying the surgery/procedure. It is not possible to know either the risk of delaying the surgery or procedure or chance of getting an infection with perfect accuracy, but a joint decision was made between the patient and the surgeon/proceduralist to proceed at this time with the scheduled surgery/procedure as indicated on the consent form.
[2019-11-25 05:45] VITALS: BP 128/81; PULSE 61; RESP 16; TEMP 37.3; O2SAT 94; BMI 42.6
[2019-11-25] MEDS: Lactated Ringers 1,000 ML 100 ML IV (06:02)
[2019-11-25 07:05] VITALS: BP 104/65; BP 128/99; PULSE 60; RESP 16; TEMP 37.2; O2SAT 95
--- NOTE | 2019-11-25 07:06 | OP.COLON_ITS ---
Patient Name: Tre Melo Procedure Date: 11/25/2019 6:10 AM Date of : 1955 Age: 64 Procedure: Colonoscopy Indications: Rectal bleeding Providers: Luis E Mcmahan MD Referring MD: J Carlos Spaulding Md Medicines: See the Anesthesia note for documentation of the administered medications Patient Profile: Last Colonoscopy: none. The patient's first colonoscopy is today. Complications: No immediate complications. Procedure: Pre-Anesthesia Assessment: - Prior to the procedure, a History and Physical was performed, and patient medications and allergies were reviewed. The patient's tolerance of previous anesthesia was also reviewed. The risks and benefits of the procedure and the sedation options and risks were discussed with the patient. All questions were answered, and informed consent was obtained. Prior Anticoagulants: The patient has taken Xarelto (rivaroxaban), last dose was 1 day prior to procedure. ASA Grade Assessment: III - A patient with severe systemic disease. After reviewing the risks and benefits, the patient was deemed in satisfactory condition to undergo the procedure. After I obtained informed consent, the scope was passed under direct vision. Throughout the procedure, the patient's blood pressure, pulse, and oxygen saturations were monitored continuously. The adult colonoscope was introduced through the anus and advanced to the cecum, identified by appendiceal orifice and ileocecal valve. The colonoscopy was performed without difficulty. The patient tolerated the procedure well. The quality of the bowel preparation was good. The ileocecal valve and the appendiceal orifice were photographed. Scope In: 6:31:36 AM Scope Withdrawal Time 0 hours 20 minutes 13 seconds Scope Out: 6:57:33 AM Total Procedure Duration Time 0 hours 25 minutes 57 seconds Findings: An anal fissure was found on perianal exam. Hemorrhoids were found on perianal exam. Prostate normal A 4 mm polyp was found in the cecum. The polyp was sessile. The polyp was removed with a cold biopsy forceps. Resection and retrieval were complete. A few diverticula were found in the entire colon. Impression: - Anal fissure found on perianal exam. Posterior anus, bleeding - Hemorrhoids found on perianal exam. - One 4 mm polyp in the cecum, removed with a cold biopsy forceps. Resected and retrieved. - Diverticulosis in the entire examined colon. Recommendation: - Discharge patient to home. - Resume previous diet. - Continue present medications. - Repeat colonoscopy in 5 years for surveillance based on pathology results. - Return to my office in 1 week. Pt is already using suppositories and diltiazem ointment Procedure Code(s): --- Professional --- 43377, Colonoscopy, flexible; with biopsy, single or multiple Diagnosis Code(s): --- Professional --- K60.2, Anal fissure, unspecified D12.0, Benign neoplasm of cecum K64.9, Unspecified hemorrhoids K62.5, Hemorrhage of anus and rectum K57.30, Diverticulosis of large intestine without perforation or abscess without bleeding CPT copyright 2017 [employer]. All rights reserved. The codes documented in this report are preliminary and upon starch and prosize mixer review may be revised to meet current compliance requirements. Luis E Mcmahan MD 11/25/2019 7:05:46 AM This report has been signed electronically. Number of Addenda: 0 Note Initiated On: 11/25/2019 6:10 AM
--- NOTE | 2019-11-25 07:06 | OP.CCLET_ITS ---
11/25/2019 J Carlos Spaulding Md Re : Colonoscopy procedure for Tre Melo Dear Jasson This procedure was performed on Monday, November 25, 2019. My impressions and recommendations are as follows: Impressions : - Anal fissure found on perianal exam. Posterior anus, bleeding - Hemorrhoids found on perianal exam. - One 4 mm polyp in the cecum, removed with a cold biopsy forceps. Resected and retrieved. - Diverticulosis in the entire examined colon. Recommendations : - Discharge patient to home. - Resume previous diet. - Continue present medications. - Repeat colonoscopy in 5 years for surveillance based on pathology results. - Return to my office in 1 week. Pt is already using suppositories and diltiazem ointment My findings are described in the full procedure note, which is enclosed. If I can be of further assistance, please feel free to contact me at Doctor phone number(s): Work: . Sincerely, Luis E Mcmahan MD 11/25/2019 7:05:46 AM This report has been signed electronically.
[2019-11-25 07:10] VITALS: BP 107/68; BP 128/1; PULSE 61; RESP 16; O2SAT 97
[2019-11-25 07:15] VITALS: BP 126/78; BP 128/1; PULSE 63; RESP 16; O2SAT 96
[2019-11-25 07:20] VITALS: BP 118/64; BP 128/1; PULSE 61; RESP 16; TEMP 37.1; O2SAT 97
[2019-11-25 07:48] LABS: AST(SGOT) 14 U/L (15-37); Alanine Aminotransfer ALT/SGPT 31 U/L (16-61); Albumin, Serum 3.7 g/dL (3.2-5.0); Alkaline Phosphatase 50 U/L (45-117); Anion Gap 4 (5-15); BUN 20 mg/dL (7-18); BUN/Creat Ratio 18.3 RATIO (10-20); Bilirubin, Direct 0.16 mg/dL (0.00-0.30); Chloride 108 mmol/L (98-107); Creatinine, Serum 1.09 mg/dL (0.70-1.30); EST Glomerular Filtration Rate 73 mL/min (>60); Est Glom Filt Rate - Afr Amer 88 mL/min (>60); Estimated Creatinine Clearance 77.13 ml/min; Globulin 3.3 g/dL (2.2-4.2); Glucose 84 mg/dL (74-106); Magnesium 2.2 mg/dL (1.6-2.6); Potassium 3.7 mmol/L (3.5-5.1); Sodium Level 141 mmol/L (136-145); T4 Free Direct 1.13 ng/dL (0.76-1.46); Thyroid Stim Hormone (TSH) 2.33 uIU/mL (0.358-3.74)
[2019-11-25 07:50] VITALS: BP 128/81
== END 2019-11-25 07:58 | disposition home or self-care (01) ==
LOC: EN 05:17 → AC 05:18
PROVIDERS: Anesthesiology; PCP Family Medicine; Referring Provider Family Medicine; Visit Provider Surgery
PROC: 0DJD8ZZ Inspection of Lower Intestinal Tract, Via Natural or Artificial Opening Endoscopic (ICD-10-PCS; CPT 45378; principal; 2019-11-25 06:25)
DX: K60.2 Anal fissure, unspecified (principal); D12.0 Benign neoplasm of cecum; K64.9 Unspecified hemorrhoids; K62.5 Hemorrhage of anus and rectum; K57.30 Diverticulosis of large intestine without perforation or abscess without bleeding; Z80.0 Family history of malignant neoplasm of digestive organs; Z79.01 Long term (current) use of anticoagulants; Z95.0 Presence of cardiac pacemaker; I48.0 Paroxysmal atrial fibrillation; I50.32 Chronic diastolic (congestive) heart failure; E66.01 Morbid (severe) obesity due to excess calories; G47.33 Obstructive sleep apnea (adult) (pediatric); I11.0 Hypertensive heart disease with heart failure; I27.21 Secondary pulmonary arterial hypertension; Z68.41 Body mass index [BMI] 40.0-44.9, adult
CPT/HCPCS: 45380; 36415; 80048; 80076; 83735; 84439; 84443; 87635; 88305; 94799; J7120; U0003

== ENCOUNTER → 2020-07-23 17:48 | Outpatient (CLI) | payer OTHER, SELFPAY ==
[2020-03-24 12:29] VITALS: BMI 47.3
== END ==
PROVIDERS: Visit Provider Family Medicine
DX: Z20.822 Contact with and (suspected) exposure to COVID-19 (principal)
CPT/HCPCS: 87635; U0002

== ENCOUNTER 2021-03-24 15:00 | Outpatient (RCR) | payer OTHER, SELFPAY ==
--- NOTE | 2021-03-17 15:52 | HP.PTEVAL ---
Patient's Visit Information JANELLE QUIÑONES is a 66 year old M referred to Physical Therapy by JOHNNA Garza with a diagnosis of veertigo. Date of Evaluation: 03/17/21 Physical Therapist: Zach Salazar, ENRICOT, OCS, CSCS - Visit Plan Frequency: 1-2x /Week Duration: 4-6 Weeks Plan: 1-2x/week for 4-6 weeks as needed for adaptation progression, habituation as needed and monitor positional. may need balance work. Next session check positional and adaptation and progress. - Subjective Feels dizzy and unsteady. Started 2 weeks awakening with dizzyness. Sitting looking straight ahead is fine. Truning head left or right or looking up to take a pill. Will spin and last less than a minute. Happens a little when lying in bed. Can happen when amb ulating with head movement. Never had this before. This dizzyness is improving slowly. No falls but catches self on llanos and cabinets, uses walking stick out and about.(but not today). Sleep is not too bad. Employed [employer] but has not lately. Can drive but slows down slowly. Can do basic ADLs at home. Avoids outdoor work. - Objective Walks with wide NIRMAL and slow and hesitant but I back to PT eval room. Trasnfers I but slow avoiding head movement. Steps reciprocal necessitating rail. cervical AROm slow but WNL and I and no pain. - B hallpike tony, slight + L roll test with quick up nystagmus, treated with BBQ roll...questionably positive. Oculomotor: no nystagmus with gaze , dizzy with head shake. - skew eye deviation. - ocular tilt. pursuit and saccades are normal. VOR is slow and difficult to keep eyes on target paarticularly to the left. increased dizzyness qfter 30 seconds. for short duration. - Balance/Special Test Scores Functional Gait Assessment Score: 18 % Disability: 40.0000 Dizziness Score: 80 - Goals Goal 1:: FGas to minimize fallr isk Goal Time Frame: 4-6 Weeks Goal 2:: Dizzyness abolished with looking up and to the side Goal Time Frame: 4-6 Weeks Goal 3:: Pt feel 90% better in overall dizzyness. Goal Time Frame: 4-6 Weeks Goal 4:: DHI 15 or less Goal Time Frame: 4-6 Weeks - Rehabilitation Potential Physical Therapy Diagnosis: imbalance and difficulty moving due to vertigo. Rehabilitation Potential: Fair - Anticipated Interventions Patient/Client Instruction: Educate patient on: Condition, Plan of Care For the Purpose of:: To increase tolerance to activity/condition/position Therapeutic Exercise to Include: Balance training Comment: vestibular exerc ises and balance For the Purpose of:: To increase tolerance to activity/condition/position, To improve ability of physical actions for home/community/work/leisure Thank you for the opportunity to evaluate your patient. For Medicare and Medicare HMO plans, please review the plan of care and approve it. It will need to be FAXED BACK to us at [phone] for Medicare purposes. For Medicare only, by signing this I certify the plan of care. Please let me know if there are questions or concerns regarding this plan of care. Physician Signature: Date:
--- NOTE | 2021-05-04 13:53 | HP.PTDCNRP_ITS ---
JANELLE QUIÑONES was seen in my office for initial evaluation on 03/17/21. The following Plan of Care was established for this patient: Initial Frequency: 1-2x /Week Initial Duration: 4-6 Weeks Patient/Client Instruction: Educate patient on: Condition, Plan of Care For the Purpose of:: To increase tolerance to activity/condition/position Therapeutic Exercise to Include: Balance training For the Purpose of:: To increase tolerance to activity/condition/position, To improve ability of physical actions for home/community/work/leisure This patient was last seen in our office 03/24/21. Pertinent comments regarding their Physical therapy will appear below: Pt seen for two visits of vestibular therapy. He cancelled his last two without rescheduling. At this point, it has been over a month and I will disocntinue d ue to nonattendance. At this point I will be discontinuing this patient from physical therapy. I would be happy to see this patient again in the future if found appropriate by the physician. Thank you! Zach Salazar, DPT, OCS, CSCS Balance/Gait/Functional tests - Balance/Special Test Scores Functional Gait Assessment Score: 18 % Disability: 40.0000 Dizziness Score: 80
== END 2021-03-24 19:00 | disposition home or self-care (01) ==
LOC: PT 15:00
PROVIDERS: PCP Nurse Practitioner Family; Referring Provider Nurse Practitioner Family; Visit Provider Nurse Practitioner Family
DX: R42 Dizziness and giddiness (principal)
CPT/HCPCS: 97110; 97162

== ENCOUNTER → 2021-03-31 12:25 | Outpatient (CLI) | payer OTHER, SELFPAY ==
[2021-03-31 15:29] LABS: Hematocrit 40.4 % (40-54); Mean Corp Hgb Conc 32.2 g/dL (32-36); Mean Corpuscular Volume 90.2 fL (80-94); Mean Platelet Vol. 11.5 fl (6.2-12.0); Platelet Count 213 K/mm3 (150-450); RBC Distribution Width CV 12.3 % (11.6-14.6); RBC Distribution Width SD 40.8 fl (35.1-43.9); Red Blood Count 4.48 M/mm3 (4.6-6.2); White Blood Count 8.4 K/mm3 (4.4-11.0)
[2021-03-31 15:42] LABS: Anion Gap 7 (5-15); BUN 24 mg/dL (7-18); BUN/Creat Ratio 20.3 RATIO (10-20); Calcium,Total 9.4 mg/dL (8.5-10.1); Chloride 105 mmol/L (98-107); Creatinine, Serum 1.18 mg/dL (0.70-1.30); EST Glomerular Filtration Rate 66 mL/min (>60); Est Glom Filt Rate - Afr Amer 80 mL/min (>60); Glucose 86 mg/dL (74-106); Potassium 4.3 mmol/L (3.5-5.1); Sodium Level 142 mmol/L (136-145)
== END ==
PROVIDERS: PCP Nurse Practitioner Family; Referring Provider Nurse Practitioner Family; Visit Provider Nurse Practitioner Family
DX: R42 Dizziness and giddiness (principal); E87.1 Hypo-osmolality and hyponatremia
CPT/HCPCS: 36415; 80048; 85027

== ENCOUNTER 2021-04-07 16:57 | Emergency (ER) | payer OTHER, SELFPAY ==
[2021-04-07 16:58] VITALS: BP 165/84; PULSE 66; RESP 17; TEMP 36.7; O2SAT 97; BMI 45.4
--- NOTE | 2021-04-07 17:10 | EDS_ITS ---
HPI History of Present Illness Chief Complaint: Lower Extremity Injury Narrative Narrative: 66-year-old male presenting with right ankle pain. He states that he rolled his right ankle in his driveway after stepping on a stone and initially was able to walk. He states that now he is still able to bear weight but it hurts worse. He states this is because the adrenaline wore off. He took 2 Tylenol at home and this did not help significantly. He denies previous ankle fracture in his ankles. He did not hurt anything else. He admits to a lot of swelling of the right lateral ankle. [facility] Medical History (Updated 04/07/21 @ 18:[address] Remy Kumar, DO) Acute posterior anal fissure Asthma Atypical atrial flutter Bradycardia Chronic diastolic (congestive) heart failure Essential (primary) hypertension Hemorrhoids, internal, with bleeding Morbid obesity with BMI of 40.0-44.9, adult Obstructive sleep apnea Paroxysmal atrial fibrillation Secondary pulmonary arterial hypertension Sick sinus syndrome Home Medications albuterol sulfate 2 puff INHALATION Q6H PRN PRN 07/21/17 [History Last Taken 07/18/17] lisinopril 20 mg tablet 20 mg PO DAILY 05/23/18 [History Last Taken 11/25/19] amiodarone 200 mg tablet 200 mg PO DAILY 06/14/19 [History Last Taken 11/25/19] budesonide-formoterol HFA 160 mcg-4.5 mcg/actuation aerosol inhaler 2 puff INHAL ATION BID 09/19/19 [History Last Taken Unknown] hydrocortisone acetate 25 mg rectal suppository 25 mg RC BID #24 ea 12/03/19 [Rx Last Taken Unknown] metoprolol succinate 50 mg tablet,extended release 24 hr 50 mg PO BID #180 tab 04/28/20 [Rx Last Taken Unknown] rivaroxaban 20 mg tablet 20 mg PO DAILY #30 tablet 08/17/20 [Rx Last Taken Unknown] hydrochlorothiazide 25 mg tablet 25 mg PO DAILY #90 tab 03/16/21 [Rx Last Taken Unknown] hydrocodone-acetaminophen 1 tab PO Q6H PRN PRN 3 Days #12 tablet 04/07/21 [Rx Last Taken Unknown] Allergy/AdvReac Type Severity Reaction Status Date / Time Hay Fever Allergy Other Uncoded 04/07/21 16:58 Family History Mother Diabetes Hypertension Father Cancer prostate Other CVA (cerebral vascular accident) Surgical History History of cardiac radiofrequency ablation (08/24/18) History of cardioversion (06/11/18) History of colonoscopy (11/25/19) History of hemorrhoidectomy History of left heart catheterization (07/21/17) Presence of permanent cardiac pacemaker (12/01/17) Social History Smoking Status: Former smoker ROS ROS ED Constitutional Constitutional ED: Denies chills or fever(s) Eyes Eyes: Denies blurry vision or change in vision ENT ENT ED: Denies rhinorrhea or sore throat Cardiovascular Cardiovascular: Denies chest pain or palpitations Respiratory/Chest Respiratory/Chest: Denies cough or dyspnea Gastrointestinal Gastrointestinal: Denies abdominal pain, nausea or vomiting Genitourinary Genitourinary ED: Denies dysuria or hematuria Musculoskeletal Musculoskeletal: Reports other Details: Right ankle pain Integumentary Denies Abrasions or rash Neurologic Neurologic: Denies headache(s) or weakness Psychiatric Psychiatric: Denies anxiety or depression EXAM Physical Exam Const Vital Signs: 04/07/21 16:58 Temperature 98.0 F Temperature Source Temporal Pulse Rate 66 Respiratory Rate 17 Blood Pressure 165/84 H Blood Pressure Mean 111 Pulse Ox 97 Oxygen Delivery Method Room Air Positive obese General Appearance ED: NAD Nutritional Appearance: obese HEENT Reports moist mucous membranes normocephalic and atraumatic Neck full ROM Resp normal respiratory effort and clear to auscultation bilaterally Cardio regular rate and regular rhythm Extremity Extremity Narrative: Tenderness palpation and swelling of the right lateral malleolus. There is no medial bony tenderness. The foot is nontender to palpation. Right foot neurovascular intact brisk cap refill to all 5 toes. Neuro oriented x3 Sensorium / Orientation: alert Psych mental status grossly normal Skin No no wounds Rashes: No no rashes MDM MDM MDM Narrative Medical decision making narrative: 66-year-old male presenting with right ankle pain after inversion injury. Patient given Hanson for pain. He does have some swelling over the lateral aspect of the ankle. X-ray on my interpretation shows a possible small avulsion fracture at the lateral malleolus periphery and soft tissue swelling. The radiologist does agree. I attempted to place the patient in a walking boot for comfort however we are currently out of those. I feel given given that he only has a very tiny avulsion fracture I can treat this like an ankle sprain and put him in an Aircast and Tony wrap. He is given crutches for ambulation. He will be given follow-up with Dr. Turenr. Patient provided a prescription for Hanson and counseled to elevate and ice his ankle. Impression: 1. Avulsion fracture right ankle Radiography Diagnostic Testing: Clinical Impression(s) from Imaging Studies Ankle X-Ray 04/07/21 17:12 IMPRESSION: 1. Tiny avulsion fracture at the periphery of the lateral malleolus and moderate overlying soft tissue swelling Electronically Signed: Smooth Alfaro MD at 17:54 EST , Service support , Discharge Plan Triage Chief Complaint: Lower Extremity Injury ED Provider: Remy Kumar Dx/Rx/DC Orders Instructions: ED Ankle Fracture, Distal Fibula Prescriptions: New hydrocodone-acetaminophen 5-325 mg tablet 1 tab PO Q6H PRN PRN (Reason: Pain) 3 Days Qty: 12 RF: 0 No Action lisinopril 20 mg tablet 20 mg PO DAILY RF: 0 budesonide-formoterol [Symbicort] 160-4.5 mcg/actuation HFA aerosol inhaler 2 puff INHALATION BID RF: 0 hydrocortisone acetate 25 mg suppository 25 mg RC BID Qty: 24 RF: 6 albuterol sulfate 1 INHALER inhaler 2 puff INHALATION Q6H PRN PRN (Reason: Wheezing/SOB) RF: 0 amiodarone 200 mg tablet 200 mg PO DAILY RF: 0 metoprolol succinate 50 mg tablet extended release 24 hr 50 mg PO BID Qty: 180 RF: 3 rivaroxaban 20 mg tablet 20 mg PO DAILY Qty: 30 RF: 11 hydrochlorothiazide 25 mg tablet 25 mg PO DAILY Qty: 90 RF: 3 Primary Care Provider: Reynaldo Rain Referrals: Elinor Turner DPM [STAFF PHYSICIAN] - As soon as possible Reynaldo Rain MD [Primary Care Provider] - Disposition Disposition: Home, Self Care Discharge Date/Time: 04/07/21 18:37
--- NOTE | 2021-04-07 17:12 | RAD_ITS ---
STUDY: X-RAY - RIGHT ANKLE REASON FOR EXAM: Male, 66 years old. ankle pain TECHNIQUE: 3 view(s) of the ankle. COMPARISON: None. FINDINGS: Moderate soft tissue swelling is present on the lateral side of the lower leg and ankle. A tiny avulsion fractures present at the lateral corner of the lateral malleolus. There are several corticated ossicles at the undersurface of the lateral malleolus likely related to old trauma. Moderate size plantar calcaneal spur and posterior enthesophyte noted. Normal visualized distal tibia and fibula. Normal medial and lateral malleoli. Normal tibiotalar articulation and ankle mortise. Normal visualized talus and calcaneus. The visualized subtalar, talonavicular, calcaneocuboid and tarsal articulations are normal. RAD/Ankle min 3 Views IMPRESSION: 1. Tiny avulsion fracture at the periphery of the lateral malleolus and moderate overlying soft tissue swelling Electronically Signed: Smooth Alfaro MD at 17:54 EST , Service support ,
[2021-04-07] MEDS: HYDROcodone Bitartrate/Apap 5/325 Tablet PO (17:33)
--- NOTE | 2021-04-07 18:36 | ED.RN ---
no walking boots in supplies, per dr daniel apply [place] wrap and air cast.
== END 2021-04-07 18:37 | disposition home or self-care (01) ==
PROVIDERS: Emergency Provider Student in an Organized Health Care Education/Training Program; PCP Family Medicine
DX: S82.61XA Displaced fracture of lateral malleolus of right fibula, initial encounter for closed fracture (principal); E66.01 Morbid (severe) obesity due to excess calories; G47.33 Obstructive sleep apnea (adult) (pediatric); I27.21 Secondary pulmonary arterial hypertension; I48.0 Paroxysmal atrial fibrillation; I48.4 Atypical atrial flutter; I50.32 Chronic diastolic (congestive) heart failure; J45.909 Unspecified asthma, uncomplicated; Z68.41 Body mass index [BMI] 40.0-44.9, adult; Z79.01 Long term (current) use of anticoagulants; Z87.891 Personal history of nicotine dependence; X50.1XXA Overexertion from prolonged static or awkward postures, initial encounter; Y92.008 Other place in unspecified non-institutional (private) residence as the place of occurrence of the external cause; Y99.9 Unspecified external cause status
CPT/HCPCS: 73610; 99282

== ENCOUNTER 2021-05-01 21:51 | Emergency (ER) | payer MEDICAID, SELFPAY ==
[2021-05-01 21:53] VITALS: BP 160/83; PULSE 61; RESP 18; TEMP 36.7; O2SAT 95; BMI 45.4
[2021-05-01] MEDS: morphine 8 MG/ML Syringe IV (22:28)
[2021-05-01] MEDS: Ondansetron 4 MG/2 ML Vial IV (22:28)
--- NOTE | 2021-05-01 22:31 | ED.VIS.LOWEX ---
HPI History of Present Illness Chief Complaint: Lower Extremity Injury Detail of Chief Complaint: Atraumatic right lower extremity pain Informant: patient and spouse/S.O. Occured/Mechanism Mechanism/Context: Yes other see comment below Comment: Read HPI Onset/Context/Timing Onset: Today Context: Sudden Onset Timing: Continuous and Waxes and wanes Quality of Pain: Aching and Throbbing Location: Right foot ankle and distal leg Current Severity: Moderate Maximum Severity: Severe Worsened by: Movement, touch and weightbearing Relieved by: Nothing Associated Symptoms Associated Symptoms: Negative for Parasthesia, Weakness and Loss of Funtion Narrative Narrative: Patient is a 66-year-old male who presents with atraumatic right foot, ankle and distal leg pain. He reports swelling. He states he was in exquisite pain attempting to put his socks on. He denies history of gout or pseudogout. He is on a thiazide diuretic. He states he injured his ankle 3 weeks ago and has been seen by Dr. Estrella. He is wearing a walking boot boot. He apparently walked 40 feet and drove a 4 [place] to hunting stand. He denies trauma or fall. He states his foot and ankle abruptly became painful and swollen. He denies paresthesia, anesthesia or weakness. He denies pallor. He denies history of PE or DVT. He is on Xarelto for A. fib. He also has history of sick sinus syndrome with placement of pacemaker. He denies fever, chills night sweats. He denies chest pain or shortness of breath. He denies prior episode of lower extremity pain and swelling. [facility] Medical History (Updated 05/02/21 @ 00:[address] Jed Banuelos MD) Acute posterior anal fissure Asthma Atypical atrial flutter Bradycardia Chronic diastolic (congestive) heart failure Essential (primary) hypertension Hemorrhoids, internal, with bleeding Morbid obesity with BMI of 40.0-44.9, adult Obstructive sleep apnea Paroxysmal atrial fibrillation Secondary pulmonary arterial hypertension Sick sinus syndrome Home Medications albuterol sulfate 2 puff INHALATION Q6H PRN PRN 07/21/17 [History Last Taken 07/18/17] lisinopril 20 mg tablet 20 mg PO DAILY 05/23/18 [History Last Taken 11/25/19] amiodarone 200 mg tablet 200 mg PO DAILY 06/14/19 [History Last Taken 11/25/19] budesonide-formoterol HFA 160 mcg-4.5 mcg/actuation aerosol inhaler 2 puff INHALATION BID 09/19/19 [History Last Taken Unknown] hydrocortisone acetate 25 mg rectal suppository 25 mg RC BID #24 ea 12/03/19 [Rx Last Taken Unknown] metoprolol succinate 50 mg tablet,extended release 24 hr 50 mg PO BID #180 tab 04/28/20 [Rx Last Taken Unknown] rivaroxaban 20 mg tablet 20 mg PO DAILY #30 tablet 08/17/20 [Rx Last Taken Unknown] hydrochlorothiazide 25 mg tablet 25 mg PO DAILY #90 tab 03/16/21 [Rx Last Taken Unknown] hydrocodone-acetaminophen 1 tab PO Q6H PRN PRN 3 Days #12 tablet 04/07/21 [Rx Last Taken Unknown] oxycodone-acetaminophen 1 tab PO Q6H PRN PRN 3 Days #12 tablet 05/02/21 [Rx Last Taken Unknown] prednisone 60 mg PO DAILY #15 tablet 05/02/21 [Rx Last Taken Unknown] Allergy/AdvReac Type Severity Reaction Status Date / Time Hay Fever Allergy Other Uncoded 05/01/21 21:57 Family History Mother Diabetes Hypertension Father Cancer prostate Other CVA (cerebral vascular accident) Surgical History History of cardiac radiofrequency ablation (08/24/18) History of cardioversion (06/11/18) History of colonoscopy (11/25/19) History of hemorrhoidectomy History of left heart catheterization (07/21/17) Presence of permanent cardiac pacemaker (12/01/17) Social History (Updated 05/01/21 @ 22:[address] Jed Banuelos MD) household members: spouse Smoking Status: Former smoker substance use type: does not use ROS ROS ED Constitutional Constitutional ED: Denies chills, fever(s), subjective, sweats or weight loss ENT ENT ED: Denies rhinorrhea or sore throat Cardiovascular Cardiovascular: Denies chest pain, orthopnea, palpitations or racing heartbeat Respiratory/Chest Respiratory/Chest: Denies cough, dyspnea, dyspnea on exertion or orthopnea Gastrointestinal Gastrointestinal: Denies abdominal pain, nausea or vomiting Genitourinary Genitourinary ED: Denies dysuria, hematuria or urinary frequency Musculoskeletal Musculoskeletal: Reports other Details: Swelling of the right ankle and foot and pain ; Denies arthralgias, back pain, myalgias or neck pain Integumentary Denies abscess, Abrasions or rash Neurologic Neurologic: Denies headache(s), paresthesias or weakness Endocrine Endocrinology: Reports other Details: Patient states he has been tested several times for diabetes and is not diabetic. ; Denies polydipsia, polyphagia or polyuria Hematologic/Lymphatic Hematologic/Lymphatic: Reports easy bruising; Denies easy bleeding EXAM Physical Exam Const Vital Signs: 05/01/21 21:53 Temperature 98.1 F Temperature Source Temporal Pulse Rate 61 Respiratory Rate 18 Blood Pressure 160/83 H Blood Pressure Mean 108 Pulse Ox 95 Oxygen Delivery Method Room Air Positive well nourished, well developed and obese General Appearance ED: well developed and other Patient appears uncomfortable Nutritional Appearance: obese HEENT normocephalic and atraumatic Eyes PERRL Eyes Narrative: Extract muscles are intact. Sclerae anicteric. Neck full ROM and supple Thyroid: Negative for tender Resp normal respiratory effort, no retractions and clear to auscultation bilaterally Cardio regular rate, regular rhythm, S1 normal heart sound, S2 normal heart sound and no murmurs GI non-tender and non-distended Auscultation: normoactive bowel sounds Palpation: soft Extremity full ROM; Negative for normal to inspection General Extremety ED: Yes edema and weight-bearing difficulty; Negative for cyanosis General Extremity: edema, weight-bearing difficulty and other findings Other Details: There is significant swelling of the right ankle. There is pain to palpation over the ankle joint. There may be an effusion. Patient has pain with dorsiflexion of the great toe. There is slight erythema dorsal surface of the right foot. DP pulses palpable. Difficulty palpating PT pulse because of pain. Patient has pain to light touch. There is minimal discomfort distal aspect of the right calf. There is swelling of the right leg compared to the left. There is no discoloration, leg vein distention, or palpable cords of the right leg. Passive plantar and dorsiflexion of the foot causes patient exquisite pain. ; Negative for cyanosis Right Lower Extremity: ankle joint inspection (Previously described), palpation (Pain with palpation and light touch no dermatologic lesions noted.), ROM (Limited range of motion due to pain) and neurovascular exam (Palpable DP pulse as previously described) Neuro oriented x3, CN's II-XII intact bilaterally and moves all extremities Sensorium / Orientation: alert Plantar Reflex: Downgoing: bilateral Psych mental status grossly normal Skin no wounds Lesions: no lesions Trauma: Negative for abrasion or laceration MDM MDM MDM Narrative Medical decision making narrative: Differential diagnosis would include pyogenic arthritis versus crystal induced arthritis. Doubt DVT since the foot and ankle are predominantly swollen and not the leg. Since he is on Xarelto and has not missed any of his doses less likely DVT. It is not however 100% since he is on anticoagulant. This may also represent a hemarthrosis. However there is no bruising noted elsewhere. Patient was medicated with morphine. 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 Patient's work-up is consistent with with gout. Will treat with prednisone. Patient was given short course of Percocet to alleviate the acute pain and allow him to sleep this evening. Lab Data Attestation: I reviewed the patient's lab results. Lab results narrative: CBC was normal. ESR and CRP were normal. Creatinine has doubled since beginning of March. Patient states he has been taking NSAIDs. He was informed he should not take NSAIDs because he is on a anticoagulant and since his creatinine has doubled in 1 month. Labs: Laboratory Results - last 24 hr 05/01/21 05/01/21 22:20 22:20 WBC 10.4 RBC 4.25 L Hgb 12.4 L Hct 38.2 L MCV 89.9 MCH 29.2 MCHC 32.5 RDW Std Deviation 40.6 RDW Coeff of Mar 12.4 Plt Count 258 MPV 10.7 Immature Gran % (Auto) 0.600 Neut % (Auto) 63.7 Lymph % (Auto) 23.9 [place] % (Auto) 8.7 Eos % (Auto) 2.1 Baso % (Auto) 1.0 Absolute Neuts (auto) 6.7 Absolute Lymphs (auto) 2.49 Nucleated RBC % 0 ESR 5 Sodium 143 Potassium 3.9 Chloride 112 H Carbon Dioxide 25.0 Anion Gap 6 BUN 34 H Creatinine 1.50 H Estim Creat Clear Calc 54.61 Est GFR (MDRD) Af Amer 61 Est GFR (MDRD) Non-Af 50 L BUN/Creatinine Ratio 22.7 H Glucose 100 Calcium 9.3 C-React Prot Ext Range < 2.90 Discharge Plan Triage Chief Complaint: Lower Extremity Injury ED Provider: Jed Banuelos Dx/Rx/DC Orders Clinical Impression: Acute gout, Acute kidney insufficiency Instructions: ED Gout, ED Renal Insufficiency Prescriptions: New prednisone 20 MG tablet 60 mg PO DAILY Qty: 15 RF: 0 oxycodone-acetaminophen [oxycodone-acetaminophen] 1 TABLET tablet 1 tab PO Q6H PRN PRN (Reason: Pain) 3 Days Qty: 12 RF: 0 No Action lisinopril 20 mg tablet 20 mg PO DAILY RF: 0 budesonide-formoterol [Symbicort] 160-4.5 mcg/actuation HFA aerosol inhaler 2 puff INHALATION BID RF: 0 hydrocortisone acetate 25 mg suppository 25 mg RC BID Qty: 24 RF: 6 albuterol sulfate 1 INHALER inhaler 2 puff INHALATION Q6H PRN PRN (Reason: Wheezing/SOB) RF: 0 hydrocodone-acetaminophen 5-325 mg tablet 1 tab PO Q6H PRN PRN (Reason: Pain) 3 Days Qty: 12 RF: 0 amiodarone 200 mg tablet 200 mg PO DAILY RF: 0 metoprolol succinate 50 mg tablet extended release 24 hr 50 mg PO BID Qty: 180 RF: 3 rivaroxaban 20 mg tablet 20 mg PO DAILY Qty: 30 RF: 11 hydrochlorothiazide 25 mg tablet 25 mg PO DAILY Qty: 90 RF: 3 Primary Care Provider: Reynaldo Rain Referrals: Omer Wray MD [STAFF PHYSICIAN] - 2 Days (Patient with acute gouty arthritis. He was instructed to discontinue thiazide diuretic and discontinue NSAIDs since creatinine has doubled) Reynaldo Rain MD [Primary Care Provider] - 3-5 Days (Creatinine has doubled since the beginning of March will need repeat basic metabolic panel to assess creatinine)
[2021-05-01 22:40] LABS: Absolute Lymphocyte Count 2.49 X10^3/uL (0.83-4.51); Absolute Neutrophil Count 6.7 X10^3/uL (2.0-7.7); Eosinophil# 0.22 X10^3/uL; Eosinophils% 2.1 % (0-5); Hematocrit 38.2 % (40-54); Hemoglobin 12.4 g/dL (13.0-16.5); Lymphocyte # 2.49 X10^3/ul (0.83-4.51); Lymphocyte % 23.9 % (19-41); Mean Corp Hgb Conc 32.5 g/dL (32-36); Mean Corpuscular Hgb 29.2 pg (27.0-32.0); Mean Corpuscular Volume 89.9 fL (80-94); Mean Platelet Vol. 10.7 fl (6.2-12.0); Monocyte# 0.91 X10^3/uL; Monocyte% 8.7 % (0-10); NRBC Flagged by Analyzer 0 % (0-5); Neutrophil # 6.65 X10^3/uL (2.7-7.7); Neutrophil % 63.7 % (47-70); Platelet Count 258 K/mm3 (150-450); RBC Distribution Width CV 12.4 % (11.6-14.6); RBC Distribution Width SD 40.6 fl (35.1-43.9); Red Blood Count 4.25 M/mm3 (4.6-6.2); White Blood Count 10.4 K/mm3 (4.4-11.0)
[2021-05-01 22:43] LABS: Erythrocyte Sedimentation Rate 5 mm/hr (0-20)
[2021-05-01 22:45] LABS: Anion Gap 6 (5-15); BUN 34 mg/dL (7-18); BUN/Creat Ratio 22.7 RATIO (10-20); CRP < 2.90 mg/L (0.0-3.0); Calcium,Total 9.3 mg/dL (8.5-10.1); Chloride 112 mmol/L (98-107); EST Glomerular Filtration Rate 50 mL/min (>60); Est Glom Filt Rate - Afr Amer 61 mL/min (>60); Estimated Creatinine Clearance 54.61 ml/min; Glucose 100 mg/dL (74-106); Potassium 3.9 mmol/L (3.5-5.1); Sodium Level 143 mmol/L (136-145)
[2021-05-02] MEDS: predniSONE 20 MG Tablet 60 MG PO (00:20)
== END 2021-05-02 00:34 | disposition home or self-care (01) ==
LOC: ED 22:52
PROVIDERS: Emergency Provider Emergency Medicine; PCP Family Medicine; Visit Provider Emergency Medicine
DX: M10.9 Gout, unspecified (principal); I50.32 Chronic diastolic (congestive) heart failure; I27.21 Secondary pulmonary arterial hypertension; I11.0 Hypertensive heart disease with heart failure; I48.0 Paroxysmal atrial fibrillation; I49.5 Sick sinus syndrome; E66.01 Morbid (severe) obesity due to excess calories; Z68.42 Body mass index [BMI] 45.0-49.9, adult; N28.9 Disorder of kidney and ureter, unspecified; Z79.01 Long term (current) use of anticoagulants; Z79.899 Other long term (current) drug therapy; Z87.891 Personal history of nicotine dependence
CPT/HCPCS: 80048; 85025; 85652; 86140; 96374; 96375; 99284; A4216; J2405

== ENCOUNTER 2022-12-19 13:45 | Observation (INO) | payer MEDICARE, BC, SELFPAY ==
[2022-12-19] VITALS (13 sets, daily range): BP systolic 117–138; BP diastolic 43–88; PULSE 59–89; RESP 16–18; TEMP 36–37.8; O2SAT 92–100; BMI 41.9
--- NOTE | 2022-12-19 14:15 | EDS_ITS ---
HPI HPI - GI History of Present Illness Chief Complaint: Abd Pain Informant: patient Abdominal Pain/Flank Pain Onset: Today Context: Gradual Onset Timing: Continuous Quality: - (pain) Location: - (Just right of supraumbilical, at location of known ventral hernia) Current Severity: Severe Maximum Severity: Severe Worsened by: Movement Relieved by: Nothing Nausea/Vomiting/Emesis GI Symptom: Positive for Nausea; Negative for Vomiting Diarrhea/Melena/Hematochezia GI Symptom: Positive for - (Last bowel movement today and normal); Negative for Diarrhea, Melena or Hematochezia Associated Symptoms Associated Symptoms: Negative for Dysuria, Frequency, Hematuria or Urgency Narrative Narrative: Abdominal pain at the site of a known ventral hernia that has been there for years that started today while he was trying to hang a door in his house. Pain was not suddenly severe, it came on gradually and has progressively worsened, not going away. No vomiting but nauseated. States he has had minor discomfort in this area sometimes after meals in the past but nothing like this. [facility] been seen [facility] and considered for elective repair, he states they were putting it off until he could lose weight and become a better surgical candidate. [facility] Medical History (Updated 12/19/22 @ 16:[address] Asad Mcdonough MD) Acute posterior anal fissure Asthma Atypical atrial flutter Bradycardia Chronic diastolic (congestive) heart failure Essential (primary) hypertension Hemorrhoids, internal, with bleeding Morbid obesity with BMI of 40.0-44.9, adult Obstructive sleep apnea Paroxysmal atrial fibrillation Secondary pulmonary arterial hypertension Sick sinus syndrome Home Medications albuterol sulfate 90 mcg/actuation aerosol inhaler 2 puff inhalation Q6H PRN PRN Wheezing/SOB 07/21/17 [History Last Taken 07/18/17] lisinopril 20 mg tablet 20 mg PO DAILY 05/23/18 [History Last Taken 11/25/19] budesonide-formoterol HFA 160 mcg-4.5 mcg/actuation aerosol inhaler (Symbicort) 2 puff inhalation BID 09/19/19 [History Last Taken Unknown] rivaroxaban 20 mg tablet 20 mg PO DAILY #30 tabs 08/17/20 [Rx Last Taken Unknown] amlodipine 5 mg tablet 5 mg PO DAILY #30 tabs 05/06/21 [Rx Last Taken Unknown] furosemide 20 mg tablet 20 mg PO DAILY #90 tabs 05/06/21 [Rx Last Taken Unknown] amiodarone 200 mg tablet 200 mg PO DAILY #90 tabs 05/24/21 [Rx Last Taken Unknown] metoprolol succinate 50 mg tablet,extended release 24 hr 50 mg PO BID #180 tabs 06/14/21 [Rx Last Taken Unknown] tadalafil 5 mg tablet 5 mg PO DAILY 12/19/22 [History Last Taken Unknown] Allergy/AdvReac Type Severity Reaction Status Date / Time Environmental Allergies: Allergy NEEDS Verified 12/19/22 13:47 Uncoded FOLLOW-UP [hay fever] Family History Mother Diabetes Hypertension Father Cancer prostate Other CVA (cerebral vascular accident) Surgical History History of cardiac radiofrequency ablation (08/24/18) History of cardioversion (06/11/18) History of colonoscopy (11/25/19) History of hemorrhoidectomy History of left heart catheterization (07/21/17) Presence of permanent cardiac pacemaker (12/01/17) Social History household members: spouse Smoking Status: Former smoker substance use type: does not use ROS ROS ED Constitutional Constitutional ED: Denies chills or fever(s) Eyes Eyes: Denies change in vision or diplopia ENT ENT ED: Denies rhinorrhea or sore throat Cardiovascular Cardiovascular: Denies chest pain or palpitations Respiratory/Chest Respiratory/Chest: Denies cough or dyspnea Gastrointestinal Gastrointestinal: Reports abdominal pain and nausea; Denies diarrhea, hematochezia, melena or vomiting Genitourinary Genitourinary ED: Denies dysuria or hematuria Musculoskeletal Musculoskeletal: Denies back pain or neck pain Integumentary Denies abscess or rash Neurologic Neurologic: Denies headache(s), paresthesias or weakness Psychiatric Psychiatric: Denies anxiety or suicidal thoughts EXAM Physical Exam Const Vital Signs: 12/19/22 13:47 12/19/22 14:58 12/19/22 16:36 Temperature 96.8 F L Temperature Source Temporal Pulse Rate 63 Respiratory Rate 18 16 Blood Pressure 138/88 H 138/77 H Blood Pressure Mean 104 97 Pulse Ox 100 Oxygen Delivery Method Room Air Positive well nourished, well developed and obese Constitutional Narrative: Uncomfortable due to pain but in no distress General Appearance ED: well developed and NAD Nutritional Appearance: obese HEENT Reports moist mucous membranes normocephalic and atraumatic Eyes PERRL and EOMs intact bilaterally Neck full ROM and supple Resp normal respiratory effort and clear to auscultation bilaterally Cardio regular rate, regular rhythm and no murmurs GI non-distended GI Narrative: Extremely tender ventral hernia at and just right of umbilicus, no overlying discoloration, irreducible Auscultation: normoactive bowel sounds Palpation: soft Back/Spine no CVA tenderness General Back: other FROM Extremity normal to inspection General Extremety ED: Negative for edema, pulses abnormal or tenderness General Extremity: Negative for edema or pulses abnormal Neuro oriented x3, CN's II-XII intact bilaterally and no sensory deficits noted Sensorium / Orientation: awake and alert Motor Exam: strength 5/5 throughout Skin no rashes or lesions noted and no wounds MDM MDM MDM Narrative Medical decision making narrative: Initially gave the patient IV pain medication, light him supine, place an ice pack for 20 minutes, and then attempted to reduce the hernia with steady pressure, this was unsuccessful and very painful. Patient was given more pain medications and sent to CT for an IV contrasted CT of the abdomen/pelvis. I reviewed these images as well as the report which I agree with, basically consistent with an incarcerated ventral/umbilical hernia. Discussed with Dr. Millan with surgery, who evaluated the patient. Patient is on Xarelto due to h istory of A-fib/flutter, he took his last dose this morning less than 12 hours ago. He was able to get the patient adequately reduced, but is admitting him to observation for laparoscopy tomorrow. He requested that medicine be consulted who I discussed with. Lab Data Attestation: I reviewed the patient's lab results. Labs: Laboratory Results - last 24 hr 12/19/22 14:16 WBC 8.2 RBC 4.73 Hgb 13.8 Hct 42.6 MCV 90.1 MCH 29.2 MCHC 32.4 RDW Std Deviation 43.6 RDW Coeff of Mar 13.1 Plt Count 209 MPV 10.8 Immature Gran % (Auto) 0.400 Neut % (Auto) 69.7 Lymph % (Auto) 21.0 [place] % (Auto) 6.9 Eos % (Auto) 1.0 Baso % (Auto) 1.0 Absolute Neuts (auto) 5.8 Absolute Lymphs (auto) 1.73 Nucleated RBC % 0 Sodium 142 Potassium 4.0 Chloride 111 H Carbon Dioxide 27.0 Anion Gap 4 L BUN 26 H Creatinine 1.11 Est GFR (MDRD) Af Amer 85 Est GFR (MDRD) Non-Af 71 BUN/Creatinine Ratio 23.4 H Glucose 112 H Calcium 9.3 Total Bilirubin 0.60 AST 14 L ALT 31 Alkaline Phosphatase 53 Total Protein 7.3 Albumin 4.2 Globulin 3.1 Albumin/Globulin Ratio 1.4 Radiography Diagnostic Testing: Clinical Impression(s) from Imaging Studies Abdomen/Pelvis CT 12/19/22 14:50 IMPRESSION: Small right paraumbilical hernia containing fluid distended small bowel, mild mesenteric edema, and mild free fluid with mild fluid dilatation of small bowel proximal to the hernia sac, suspicious for strangulated hernia with early small bowel obstruction. Colonic diverticulosis without acute diverticulitis. Electronically Signed: Margaret Morse MD at 15:29 EDT , Management Discussion w/another healthcare provider: Hospitalist and [employer] Team Technician (Sander Millan) Discharge Plan Dx/Rx/DC Orders Clinical Impression: Incarcerated umbilical hernia Disposition Disposition: Acute Care [facility]
[2022-12-19 14:21] LABS: Absolute Lymphocyte Count 1.73 X10^3/uL (0.83-4.51); Absolute Neutrophil Count 5.8 X10^3/uL (2.0-7.7); Basophil# 0.08 X10^3/uL; Eosinophil# 0.08 X10^3/uL; Hematocrit 42.6 % (40-54); Hemoglobin 13.8 g/dL (13.0-16.5); Lymphocyte # 1.73 X10^3/ul (0.83-4.51); Mean Corp Hgb Conc 32.4 g/dL (32-36); Mean Corpuscular Hgb 29.2 pg (27.0-32.0); Mean Corpuscular Volume 90.1 fL (80-94); Mean Platelet Vol. 10.8 fl (6.2-12.0); Monocyte# 0.57 X10^3/uL; Monocyte% 6.9 % (0-10); NRBC Flagged by Analyzer 0 % (0-5); Neutrophil # 5.75 X10^3/uL (2.7-7.7); Neutrophil % 69.7 % (47-70); Platelet Count 209 K/mm3 (150-450); RBC Distribution Width CV 13.1 % (11.6-14.6); RBC Distribution Width SD 43.6 fl (35.1-43.9); Red Blood Count 4.73 M/mm3 (4.6-6.2); White Blood Count 8.2 K/mm3 (4.4-11.0)
[2022-12-19] MEDS: Ondansetron 4 MG/2 ML Vial IV (14:22)
[2022-12-19] MEDS: Morphine 4 MG/ML Syringe IV ×3 (14:22→17:18)
[2022-12-19] MEDS: 0.9% Normal Saline 1,000 ML 125 ML IV (14:22)
[2022-12-19 14:37] LABS: ALB/GLOB Ratio 1.4 RATIO (0.9-2.4); AST(SGOT) 14 U/L (15-37); Alanine Aminotransfer ALT/SGPT 31 U/L (16-61); Albumin, Serum 4.2 g/dL (3.2-5.0); Alkaline Phosphatase 53 U/L (45-117); Anion Gap 4 (5-15); BUN 26 mg/dL (7-18); BUN/Creat Ratio 23.4 RATIO (10-20); Calcium,Total 9.3 mg/dL (8.5-10.1); Chloride 111 mmol/L (98-107); Creatinine, Serum 1.11 mg/dL (0.70-1.30); EST Glomerular Filtration Rate 71 mL/min (>60); Est Glom Filt Rate - Afr Amer 85 mL/min (>60); Globulin 3.1 g/dL (2.2-4.2); Glucose 112 mg/dL (74-106); Protein, Total 7.3 g/dL (6.4-8.2); Sodium Level 142 mmol/L (136-145)
--- NOTE | 2022-12-19 14:50 | CT_ITS ---
HISTORY: ventral hernia w/ sv pain. TECHNIQUE: Helically acquired images were obtained of the abdomen and pelvis after the intravenous administration of 100mL Isovue-300. A radiation dose optimization technique was used for this scan. 479 images. COMPARISON: None. FINDINGS: LOWER CHEST: Borderline cardiomegaly with pacemaker. BOWEL: Small right paraumbilical hernia containing fluid distended small bowel, mild free fluid, and mild mesenteric edema. Short segment of mildly dilated small bowel proximal to the hernia.. No periappendiceal inflammation. Mild colonic diverticulosis without focal inflammatory change observed. PERITONEUM: No significant intra-abdominal ascites. LIVER: No enhancing mass. GALLBLADDER/BILIARY TREE: Gallbladder present. SPLEEN/PANCREAS: Homogeneous and nonenlarged. KIDNEYS: No hydronephrosis or enhancing mass. Trace bilateral perinephric stranding, which can be chronic. ADRENAL GLANDS: No nodules. VESSELS: No abdominal aortic aneurysm. Mild atherosclerosis. PELVIC ORGANS: Unremarkable. ABDOMINAL WALL: Fat-containing inguinal hernias. BONES: Mild degenerative change. CT/Abdomen/Pelvis W IV Cont ONLY IMPRESSION: Small right paraumbilical hernia containing fluid distended small bowel, mild mesenteric edema, and mild free fluid with mild fluid dilatation of small bowel proximal to the hernia sac, suspicious for strangulated hernia with early small bowel obstruction. Colonic diverticulosis without acute diverticulitis. Electronically Signed: Margaret Morse MD at 15:29 EDT ,
--- NOTE | 2022-12-19 16:52 | EKG12_ITS ---
Test Reason : ABD PAIN Blood Pressure : / mmHG Vent. Rate : 060 BPM Atrial Rate : 060 BPM P-R Int : 000 ms QRS Dur : 168 ms QT Int : 476 ms P-R-T Axes : 000 231 046 degrees QTc Int : 476 ms AV dual-paced rhythm Abnormal ECG Confirmed by KARIN SHEIKH ([id number]), art editor HILTON TEMPLE ([id number]) on 01/03/2023 12:59:01 PM Referred By: Confirmed By:KARIN SHEIKH
--- NOTE | 2022-12-19 17:10 | RAD_ITS ---
EXAM: XR CHEST, 1 VIEW CLINICAL INDICATION: preop clearance TECHNIQUE: Frontal view of the chest. COMPARISON: 06/18/2019 FINDINGS: LUNGS AND PLEURAL SPACES: Unremarkable. No consolidation or edema. No pneumothorax. No effusion. HEART: Unremarkable. Cardiac silhouette not enlarged. MEDIASTINUM: Central airways and mediastinal contour are unremarkable. BONES/JOINTS: Unremarkable. SOFT TISSUES: Unremarkable. TUBES, LINES AND DEVICES: Left-sided pacemaker in stable position. RAD/Chest 1 View (Portable) IMPRESSION: No acute findings in the chest. Electronically Signed: Harris Lind MD at 17:37 EDT ,
--- NOTE | 2022-12-19 17:15 | PCM.HP.STD ---
HPI - General General Date of Admission: 12/19/22 Date of Service: 12/19/22 Chief Complaint: Acute onset and bulging at umbilical hernia HPI Narrative JANELLE QUIÑONES, is a 67 M who presents to [facility] ER with c/o acute ab pain and associated nausea that began this AM while trying to install a new floor. He also states that he experienced this with bulging at his known umbilical hernia. He reports he was unable to push the hernia back in an decided to seek evaluation. Additionally he does confirm that he was able to eat breakfast and had a normal BM at home prior to his presentation. Mr. Quiñones reports an approximately 2 year history with this hernia. He is unable to recall how it occurred but states that it has primarily been fat that has acted as the contents of this hernia. He recounts too that [facility] but was told he needed to lose additional weight prior to proceeding. He reports that he began this weight loss and was down to within five pounds of the recommended weight but was still denied. Mr. Quiñones has a complex past cardiac history inclusive of afib s/p ablation now on xarelto (last dose this AM) as well as diastolic CHF. His reports that he is followed [facility] these diagnoses [facility] now but previously was a patient of Dr. Taylor. He has no prior abdominal surgical history. [facility] Medical History (Updated 12/19/22 @ 16:[address] Asad Mcdonough MD) Acute posterior anal fissure Asthma Atypical atrial flutter Bradycardia Chronic diastolic (congestive) heart failure Essential (primary) hypertension Hemorrhoids, internal, with bleeding Morbid obesity with BMI of 40.0-44.9, adult Obstructive sleep apnea Paroxysmal atrial fibrillation Secondary pulmonary arterial hypertension Sick sinus syndrome Home Medications albuterol sulfate 90 mcg/actuation aerosol inhaler 2 puff inhalation Q6H PRN PRN Wheezing/SOB 07/21/17 [History Last Taken 07/18/17] lisinopril 20 mg tablet 20 mg PO DAILY 05/23/18 [History Last Taken 11/25/19] budesonide-formoterol HFA 160 mcg-4.5 mcg/actuation aerosol inhaler (Symbicort) 2 puff inhalation BID 09/19/19 [History Last Taken Unknown] rivaroxaban 20 mg tablet 20 mg PO DAILY #30 tabs 08/17/20 [Rx Last Taken Unknown] amlodipine 5 mg tablet 5 mg PO DAILY #30 tabs 05/06/21 [Rx Last Taken Unknown] furosemide 20 mg tablet 20 mg PO DAILY #90 tabs 05/06/21 [Rx Last Taken Unknown] amiodarone 200 mg tablet 200 mg PO DAILY #90 tabs 05/24/21 [Rx Last Taken Unknown] metoprolol succinate 50 mg tablet,extended release 24 hr 50 mg PO BID #180 tabs 06/14/21 [Rx Last Taken Unknown] tadalafil 5 mg tablet 5 mg PO DAILY 12/19/22 [History Last Taken Unknown] Allergy/AdvReac Type Severity Reaction Status Date / Time Environmental Allergies: Allergy NEEDS Verified 12/19/22 13:47 Uncoded FOLLOW-UP [hay fever] Family History Mother Diabetes Hypertension Father Cancer prostate Other CVA (cerebral vascular accident) Surgical History History of cardiac radiofrequency ablation (08/24/18) History of cardioversion (06/11/18) History of colonoscopy (11/25/19) History of hemorrhoidectomy History of left heart catheterization (07/21/17) Presence of permanent cardiac pacemaker (12/01/17) Social History household members: spouse Smoking Status: Former smoker substance use type: does not use ROS Respiratory/Chest Respiratory/Chest: Reports cough Gastrointestinal Gastrointestinal: Reports abdominal pain and nausea; Denies constipation or vomiting Vital Signs Vital Signs Vital Signs: 12/19/22 13:47 12/19/22 14:58 12/19/22 16:36 Temperature 96.8 F L Temperature Source Temporal Pulse Rate 63 Respiratory Rate 18 16 Blood Pressure 138/88 H 138/77 H Blood Pressure Mean 104 97 Pulse Ox 100 Oxygen Delivery Method Room Air 12/19/22 16:56 Temperature 97.9 F Temperature Source Oral Pulse Rate 59 L Respiratory Rate 18 Blood Pressure 134/82 H Blood Pressure Mean 99 Pulse Ox 95 Oxygen Delivery Method Weight Weight: 309 lb Body Mass Index (BMI) 41.9 Physical Exam Const alert Constitutional Narrative: distressed from ab discomfort. Resp normal respiratory effort GI GI Narrative: obese, non distended, no scars. Umbilical bulge soft without discoloration. Remainder of abdomen slightly tender to palpation. Results Lab / Micro Data 12/19/22 14:16 12/19/22 14:16 Labs: Laboratory Results - last 24 hr 12/19/22 14:16: WBC 8.2, RBC 4.73, Hgb 13.8, Hct 42.6, MCV 90.1, MCH 29.2, MCHC 32.4, RDW Std Deviation 43.6, RDW Coeff of Mar 13.1, Plt Count 209, MPV 10.8, Immature Gran % (Auto) 0.400, Neut % (Auto) 69.7, Lymph % (Auto) 21.0, [place] % (Auto) 6.9, Eos % (Auto) 1.0, Baso % (Auto) 1.0, Absolute Neuts (auto) 5.8, Absolute Lymphs (auto) 1.73, Nucleated RBC % 0, Sodium 142, Potassium 4.0, Chloride 111 H, Carbon Dioxide 27.0, Anion Gap 4 L, BUN 26 H, Creatinine 1.11, Est GFR (MDRD) Af Amer 85, Est GFR (MDRD) Non-Af 71, BUN/Creatinine Ratio 23.4 H, Glucose 112 H, Calcium 9.3, Total Bilirubin 0.60, AST 14 L, ALT 31, Alkaline Phosphatase 53, Total Protein 7.3, Albumin 4.2, Globulin 3.1, Albumin/Globulin Ratio 1.4 Radiology Impression Abdomen/Pelvis CT 12/19/22 14:50 IMPRESSION: Small right paraumbilical hernia containing fluid distended small bowel, mild mesenteric edema, and mild free fluid with mild fluid dilatation of small bowel proximal to the hernia sac, suspicious for strangulated hernia with early small bowel obstruction. Colonic diverticulosis without acute diverticulitis. Electronically Signed: Margaret Morse MD at 15:29 EDT , Assessment & Plan Assessment/Plan (1) Incarcerated umbilical hernia: PLAN: This is a 67 yo male with a complex past cardiopulmonary history and morbid obesity who presents with an incarcerated umbilical hernia. Radiology reported possible strangulation and early obstruction on CT, however, patient had normal WBC and soft hernia contents without discoloration of the skin. Based on these latter observations I attempted reduction at bedside and was ultimately successful. Given this radiologic report and patient's persistent pain I have recommended diagnostic laparoscopy to further evaluate the bowel. I have been intentional about communicate his heightened risk for bleeding due to the concurrent anticoagulation. He is also aware that if his bowel is felt to be nonviable then he would require resection and reanastomosis. Lastly we have discussed delaying his hernia repair to a future date when he can come off his Xarelto preoperatively. Patient now to be transferred to OR for emergent diagnostic laparoscopy and postoperatively will be admitted to observation status. Charges/Coding Visit Charges Inpatient E&M: 88627 Init Hosp L2
--- NOTE | 2022-12-19 17:50 | PCM.PN.HOSP ---
Subjective Subjective 7-year-old male presents to the hospital with abdominal pain and nausea that started this morning, and was found to be early strangulated umbilical hernia. Medicine was consulted given history of paroxysmal A-fib and flutter. He did have a pacemaker and I believe an ablation in however he is still on Xarelto which will need held. He states that his medical history is stable. In anticipation of surgery an EKG and a chest x-ray were ordered by the emergency room physician, and both are unremarkable. Objective Data Objective Data Vital Signs: Vital Signs Temp Pulse Resp BP Pulse Ox O2 Del Method 97.9 F 59 L 18 134/82 H 95 Room Air 12/19/22 16:56 12/19/22 16:56 12/19/22 16:56 12/19/22 16:56 12/19/22 16:56 12/19/22 13:47 Oxygen Delivery Method Room Air Weight: 309 lb Body Mass Index (BMI) 41.9 Lab / Micro Data 12/20/22 05:57 12/20/22 05:57 Labs: Laboratory Results - last 24 hr 12/19/22 14:16: WBC 8.2, RBC 4.73, Hgb 13.8, Hct 42.6, MCV 90.1, MCH 29.2, MCHC 32.4, RDW Std Deviation 43.6, RDW Coeff of Mar 13.1, Plt Count 209, MPV 10.8, Immature Gran % (Auto) 0.400, Neut % (Auto) 69.7, Lymph % (Auto) 21.0, [place] % (Auto) 6.9, Eos % (Auto) 1.0, Baso % (Auto) 1.0, Absolute Neuts (auto) 5.8, Absolute Lymphs (auto) 1.73, Nucleated RBC % 0, Sodium 142, Potassium 4.0, Chloride 111 H, Carbon Dioxide 27.0, Anion Gap 4 L, BUN 26 H, Creatinine 1.11, Est GFR (MDRD) Af Amer 85, Est GFR (MDRD) Non-Af 71, BUN/Creatinine Ratio 23.4 H, Glucose 112 H, Calcium 9.3, Total Bilirubin 0.60, AST 14 L, ALT 31, Alkaline Phosphatase 53, Total Protein 7.3, Albumin 4.2, Globulin 3.1, Albumin/Globulin Ratio 1.4 Radiography Diagnostic Testing: Radiology Impression Abdomen/Pelvis CT 12/19/22 14:50 IMPRESSION: Small right paraumbilical hernia containing fluid distended small bowel, mild mesenteric edema, and mild free fluid with mild fluid dilatation of small bowel proximal to the hernia sac, suspicious for strangulated hernia with early small bowel obstruction. Colonic diverticulosis without acute diverticulitis. Electronically Signed: Margaret Morse MD at 15:29 EDT , Chest X-Ray 12/19/22 17:10 IMPRESSION: No acute findings in the chest. Electronically Signed: Harris Lind MD at 17:37 EDT , Physical Exam Narrative General: Alert, Oriented x3, Cooperative, No apparent distress HEENT: Atraumatic, PERRLA, EOMI, Normocephalic Oral: Moist Mucosa Neck: Supple, No JVD Lungs: Diminished, Normal air movement, No rhonchi, No wheeze, No rales Cardiovascular: Regular rate, Regular Rhythm, Normal S1, Normal S2, No murmurs Abdomen: Soft, mild tender, Non-Distended, No Hepato-splenomegaly, umbilical hernia Extremities: No edema, Capillary Refill Less than 3 Seconds Skin: No rashes, No breakdown Musculoskeletal: No Tenderness to Palpation of Joints or Extremities Neurological: Cranial nerves II-XII grossly intact, Motor Exam 5/5 strength throughout, Sensory exam intact to light touch and pain Psych/Mental Status: Normal Affect, Appropriate Assessment & Plan Assessment/Plan (1) Incarcerated umbilical hernia: PLAN: Plan 1. Strangulated umbilical hernia ? Pain management per primary ? Diet per primary ? We will hold Xarelto in preparation of surgery can place him on SCDs if necessary 2. HTN/HLD/paroxysmal A-fib status post ablation/sick sinus syndrome with pacemaker ? Can resume his home amiodarone as well as Norvasc and metoprolol ?We will hold lisinopril and Lasix pending BMP in the morning ? Can resume Xarelto when okay with surgery Charges/Coding Visit Charges Office Visits / Consults: 14234 OV L3 New
[2022-12-19] MEDS: Bupivacaine 0.25% 30 ML Vial (19:05)
--- NOTE | 2022-12-19 19:36 | OP.PCM_ITS ---
Report of Operation Date of Procedure: 12/19/22 Pre-Operative Diagnosis: Incarcerated umbilical hernia Post-Operative Diagnosis: Strangulated umbilical hernia with viable bowel Surgery/Procedure Performed:: 1. Diagnostic laparoscopy 2. Primary repair of umbilical hernia Description of Surgical Findings:: ? 10 to 15 cm long segment of ileum severely injected with peristalsing ? Approximately 3 cm umbilical hernia defect closed with interrupted suture Surgeon: Cheikh Millan research associate policy: Inez Valdez Type of Anesthesia: General/Supplemental Anesthesiologist: Sherif Kiser Specimen's removed: None Drains: None Estimated Blood Loss (mL): 5 Description of Procedure: After appropriate identification in the preoperative holding area, confirming consents, and undergoing a breathing treatment the patient was brought to the operating room and placed supine on the operating room table. Antibiotics were ordered as 3 g Ancef for empiric coverage and administered by anesthesia. Patient was then induced with general endotracheal anesthetic. The abdomen was prepped and draped in usual sterile fashion. An orogastric tube was placed by anesthesia. Formal timeout was conducted to confirm both the patient and the procedure. A supraumbilical incision was made and carried down to the level of the fascia/patient's known umbilical hernia and I bluntly probed this digitally to bravo the peritoneum bluntly. A finger sweep was made to confirm position, and a balloon trocar was placed. Pneumoperitoneum was established to 15 mmHg. Two additional 5 mm trocars were placed in the right lateral abdomen along the linea semilunaris after instilling local anesthetic under laparoscopic visualization. Patient was positioned in reverse Trendelenburg with the right side down. Using our 3 ports we began running the bowel and shortly Upon the ligament of Treitz in the left upper quadrant. I then ran this distally till I was at least 300 cm into the small bowel within the territory of the ileum. Here I encountered a severely injected segment of bowel approximately 10 to 15 cm in length. Given its appearance, I was convinced it clearly represented segment of bowel that had been previously incarcerated and strangulated within the hernia. Under observation I did note several peristaltic waves within this bowel. I also confirmed that there did not appear to be any abnormalities to the small bowel mesentery that might suggest thrombosis. I continued to run the bowel distally until it became too difficult to do so in the current port configuration so I then identified the terminal ileum and ran it back proximal to the area where we had stopped and therefore completed a full survey of the bowel. Once again I returned to the affected segment of bowel and found it to be peristalsing. Therefore, I elected to forego any bowel resection and proceeded with evacuation of pneumoperitoneum. The patient's umbilical hernia fascial defect was palpated and elevated to the point that it could be closed in an interrupted fashion using #1 Prolene suture. A total of 4 sutures were used, bringing about tight approximation of the fascia. The fascia was directly injected with local anesthetic as well as the remaining 2 port sites. In total we used 25 mL 0.5% bupivacaine local anesthetic. Given patient's concurrent anticoagulation I scrutinized each port site for hemostasis, but found this to be intact. The skin of each port site was closed with 4-0 Monocryl in a subcuticular erupted fashion. Steri-Strips and OpSite dressings were applied. Patient tolerated procedure well without any apparent complications. They were awoken from general anesthetic without issue and transferred to post anesthesia care unit for ongoing recovery. Complications None Admit VTE Documentation VTE Mechan Device Prophylaxis: SCD's
[2022-12-19] MEDS: HYDROmorphone 0.5 MG/0.5 ML SYRINGE IV (21:29)
[2022-12-20] VITALS (8 sets, daily range): BP systolic 108–119; BP diastolic 62–71; PULSE 59–64; RESP 16–18; TEMP 36.5–37.3; O2SAT 94–98
[2022-12-20] MEDS: Acetaminophen 500 MG Tablet PO ×2 (01:06→06:43)
[2022-12-20] MEDS: oxyCODONE 5 MG Tablet PO ×2 (01:06→06:43)
[2022-12-20] MEDS: 0.9% Normal Saline 1,000 ML 125 ML IV (01:09)
[2022-12-20 06:17] LABS: Absolute Lymphocyte Count 1.71 X10^3/uL (0.83-4.51); Absolute Neutrophil Count 5.8 X10^3/uL (2.0-7.7); Basophil# 0.07 X10^3/uL; Basophil% 0.8 % (0-1); Eosinophil# 0.07 X10^3/uL; Eosinophils% 0.8 % (0-5); Hematocrit 39.1 % (40-54); Hemoglobin 12.9 g/dL (13.0-16.5); Lymphocyte # 1.71 X10^3/ul (0.83-4.51); Lymphocyte % 20.1 % (19-41); Mean Corpuscular Hgb 30.2 pg (27.0-32.0); Mean Corpuscular Volume 91.6 fL (80-94); Mean Platelet Vol. 11.5 fl (6.2-12.0); Monocyte# 0.81 X10^3/uL; Monocyte% 9.5 % (0-10); NRBC Flagged by Analyzer 0 % (0-5); Neutrophil # 5.81 X10^3/uL (2.7-7.7); Neutrophil % 68.6 % (47-70); Platelet Count 194 K/mm3 (150-450); RBC Distribution Width CV 13.6 % (11.6-14.6); RBC Distribution Width SD 46.1 fl (35.1-43.9); Red Blood Count 4.27 M/mm3 (4.6-6.2); White Blood Count 8.5 K/mm3 (4.4-11.0)
--- NOTE | 2022-12-20 08:53 | PN.SURG_ITS ---
Subjective Subjective Patient is a 67 y/o M I am following s/p diagnostic laparoscopy with primary repair of umbilical hernia. Patient notes minimal amount of discomfort at the umbilical incision site. He is otherwise recovering well. He denies any nausea, vomiting, fever. He feels hungry this morning. Objective Data Objective Data Vital Signs: Vital Signs Temp Pulse Resp BP Pulse Ox O2 Del Method O2 Flow Rate 97.7 F L 64 16 119/71 95 Nasal Cannula 2 12/20/22 04:37 12/20/22 04:37 12/20/22 04:37 12/20/22 04:37 12/20/22 04:37 12/20/22 04:37 12/20/22 04:37 Oxygen Flow Rate (L/min) 2 Oxygen Delivery Method Nasal Cannula Weight: 309 lb Body Mass Index (BMI) 41.9 Intake & Output: Intake and Output for Last 24 Hours 12/18/22 12/19/22 12/20/22 23:59 23:59 23:59 Intake Total 1115 / 1115 Balance 1115 / 1115 Lab / Micro Data 12/20/22 05:57 12/19/22 14:16 Labs: Laboratory Results - last 24 hr 12/19/22 14:16: WBC 8.2, RBC 4.73, Hgb 13.8, Hct 42.6, MCV 90.1, MCH 29.2, MCHC 32.4, RDW Std Deviation 43.6, RDW Coeff of Mar 13.1, Plt Count 209, MPV 10.8, Immature Gran % (Auto) 0.400, Neut % (Auto) 69.7, Lymph % (Auto) 21.0, [place] % (Auto) 6.9, Eos % (Auto) 1.0, Baso % (Auto) 1.0, Absolute Neuts (auto) 5.8, Absolute Lymphs (auto) 1.73, Nucleated RBC % 0, Sodium 142, Potassium 4.0, Chloride 111 H, Carbon Dioxide 27.0, Anion Gap 4 L, BUN 26 H, Creatinine 1.11, Est GFR (MDRD) Af Amer 85, Est GFR (MDRD) Non-Af 71, BUN/Creatinine Ratio 23.4 H , Glucose 112 H, Calcium 9.3, Total Bilirubin 0.60, AST 14 L, ALT 31, Alkaline Phosphatase 53, Total Protein 7.3, Albumin 4.2, Globulin 3.1, Albumin/Globulin Ratio 1.4 12/20/22 05:57: WBC 8.5, RBC 4.27 L, Hgb 12.9 L, Hct 39.1 L, MCV 91.6, MCH 30.2, MCHC 33.0, RDW Std Deviation 46.1 H, RDW Coeff of Mar 13.6, Plt Count 194, MPV 11.5, Immature Gran % (Auto) 0.200, Neut % (Auto) 68.6, Lymph % (Auto) 20.1, [place] % (Auto) 9.5, Eos % (Auto) 0.8, Baso % (Auto) 0.8, Absolute Neuts (auto) 5.8, Absolute Lymphs (auto) 1.71, Nucleated RBC % 0 Radiography Diagnostic Testing: Radiology Impression Abdomen/Pelvis CT 12/19/22 14:50 IMPRESSION: Small right paraumbilical hernia containing fluid distended small bowel, mild mesenteric edema, and mild free fluid with mild fluid dilatation of small bowel proximal to the hernia sac, suspicious for strangulated hernia with early small bowel obstruction. Colonic diverticulosis without acute diverticulitis. Electronically Signed: Margaret Morse MD at 15:29 EDT , Chest X-Ray 12/19/22 17:10 IMPRESSION: No acute findings in the chest. Electronically Signed: Harris Lind MD at 17:37 EDT , Physical Exam GI GI Narrative: Abdomen- obese, soft, nontender to palpation. Incisions c/d/i. Assessment & Plan Assessment/Plan (1) Incarcerated umbilical hernia: PLAN: Patient recovering very well from surgery Will increase diet to full liquids this morning Await bowel function If tolerate diet and passes flatus, patient may be discharged later today We will continue to follow this patient Appreciate Hospitalist input Charges/Coding Visit Charges Inpatient E&M: 06813 Subs Hosp L1 (Post-op)
--- NOTE | 2022-12-20 08:56 | PCM.PN.HOSP ---
Reason for Visit Reason for Visit: Diagnoses Umbilical hernia with obstruction, without gangrene (12/19/22) Subjective Subjective Patient feeling somewhat sore but better than yesterday, he is hungry and ready to eat, passing gas, no nausea, no chest pain or shortness of breath Objective Data Objective Data Vital Signs: Vital Signs Temp Pulse Resp BP Pulse Ox O2 Del Method O2 Flow Rate 97.7 F L 64 16 119/71 95 Nasal Cannula 2 12/20/22 04:37 12/20/22 04:37 12/20/22 04:37 12/20/22 04:37 12/20/22 04:37 12/20/22 04:37 12/20/22 04:37 Oxygen Flow Rate (L/min) 2 Oxygen Delivery Method Nasal Cannula Weight: 140.16 kg Body Mass Index (BMI) 41.9 Intake & Output: Intake and Output for Last 24 Hours 12/18/22 12/19/22 12/20/22 23:59 23:59 23:59 Intake Total 1115 / 1115 Balance 1115 / 1115 Lab / Micro Data 12/20/22 05:57 12/20/22 05:57 Labs: Laboratory Results - last 24 hr 12/19/22 14:16: WBC 8.2, RBC 4.73, Hgb 13.8, Hct 42.6, MCV 90.1, MCH 29.2, MCHC 32.4, RDW Std Deviation 43.6, RDW Coeff of Mar 13.1, Plt Count 209, MPV 10.8, Immature Gran % (Auto) 0.400, Neut % (Auto) 69.7, Lymph % (Auto) 21.0, [place] % (Auto) 6.9, Eos % (Auto) 1.0, Baso % (Auto) 1.0, Absolute Neuts (auto) 5.8, Absolute Lymphs (auto) 1.73, Nucleated RBC % 0, Sodium 142, Potassium 4.0, Chloride 111 H, Carbon Dioxide 27.0, Anion Gap 4 L, BUN 26 H, Creatinine 1.11, Est GFR (MDRD) Af Amer 85, Est GFR (MDRD) Non-Af 71, BUN/Creatinine Ratio 23.4 H, Glucose 112 H, Calcium 9.3, Total Bilirubin 0.60, AST 14 L, ALT 31, Alkaline Phosphatase 53, Total Protein 7.3, Albumin 4.2, Globulin 3.1, Albumin/Globulin Ratio 1.4 12/20/22 05:57: WBC 8.5, RBC 4.27 L, Hgb 12.9 L, Hct 39.1 L, MCV 91.6, MCH 30.2, MCHC 33.0, RDW Std Deviation 46.1 H, RDW Coeff of Mar 13.6, Plt Count 194, MPV 11.5, Immature Gran % (Auto) 0.200, Neut % (Auto) 68.6, Lymph % (Auto) 20.1, [place] % (Auto) 9.5, Eos % (Auto) 0.8, Baso % (Auto) 0.8, Absolute Neuts (auto) 5.8, Absolute Lymphs (auto) 1.71, Nucleated RBC % 0 Radiography Diagnostic Testing: Radiology Impression Abdomen/Pelvis CT 12/19/22 14:50 IMPRESSION: Small right paraumbilical hernia containing fluid distended small bowel, mild mesenteric edema, and mild free fluid with mild fluid dilatation of small bowel proximal to the hernia sac, suspicious for strangulated hernia with early small bowel obstruction. Colonic diverticulosis without acute diverticulitis. Electronically Signed: Margaret Morse MD at 15:29 EDT , Chest X-Ray 12/19/22 17:10 IMPRESSION: No acute findings in the chest. Electronically Signed: Harris Lind MD at 17:37 EDT , Physical Exam Narrative General: Alert, oriented, no apparent distress HEENT: Atraumatic, normocephalic Eyes: Anicteric, normal conjunctiva, extraocular movements grossly intact Neck: Supple Respiratory: Clear to auscultation bilaterally, normal respiratory effort Cardiovascular: Regular rate GI: Not tense, slightly tender without rebound, guarding, rigidity Extremities: No edema Musculoskeletal: Moving all extremities Neuro: No overt focal neurological deficits Skin: No rashes appreciated Psych: Cooperative Assessment & Plan Assessment/Plan (1) Incarcerated umbilical hernia: PLAN: Plan 1. Strangulated umbilical hernia ? Pain management per primary ? Diet per primary ? We will hold Xarelto in preparation of surgery can place him on SCDs if necessary -12/20: Okay to hold Xarelto at this time, patient being advanced to full liquids per surgery 2. HTN/HLD/paroxysmal A-fib status post ablation/sick sinus syndrome with pacemaker ? Can resume his home amiodarone as well as Norvasc and metoprolol ?We will hold lisinopril and Lasix pending BMP in the morning ? Can resume Xarelto when okay with surgery -12/20: Okay to hold Xarelto until cleared to resume by surgery BMP overall unchanged so we will resume metoprolol, tadalafil for his pulmonary hypertension and amiodarone, if patient is discharged today he can resume his other home medications starting tomorrow Charges/Coding Visit Charges [facility] E[facility]M: 8[facility]
--- NOTE | 2022-12-20 09:05 | PCM.DC ---
Discharge Instructions Diet Discharge Diet: Light diet - advance as tolerated Activity Discharge Activity: May Not Drive (3-5 days or while taking narcotic pain medications) Lifting Restrictions: 10 pounds Dressing / Incision Call your doctor if your incision/area has: Continuous Slow Oozing, Sudden Increased Bleeding, Increased Pain/ Swelling, Increased Redness, Foul Smelling Discharge and Swelling at the incision site Call your doctor if you observe: Fever of 101 or Higher Suture Line Care: Avoid Pulling/Pushing and Avoid Pinching/Bending Remove Dressing in: 2 days Cleanse incision/area with: Soap & Water Follow Up Care Please Follow Up With: Cheikh Millan MD When: Follow-up with Dr. Millan in 2 weeks following your surgery date. Please call [phone] for an appointment. Test Results: Test results from this visit will be discussed in further detail at your follow-up appointment, if applicable. Discharge Plan Admission Admit Date/Time: 12/19/22 18:26 Primary Reason for Your Visit: Incarcerated umbilical hernia Attending Provider: Cheikh Millan Primary Care Provider: [facility],[place] Consulting Providers: Juana Rodriguez Instructions Additional Instructions / Restrictions: Recommend no lifting greater than 10 pounds for 2 weeks You may remove the op-site dressings in 2 days You may shower starting tomorrow over top of the plastic dressings which are waterproof You will need to follow-up in [address] Millan You will discuss at that time scheduling your next surgical procedure to place mesh Please call our office to schedule an appointment at [phone] or if any questions or concerns Discharge Orders/Prescriptions Prescriptions: New oxycodone 5 mg Tablet 5 mg PO Q6H PRN PRN (Reason: Pain Score 6-10) 2 Days Qty: 6 0RF Continued lisinopril 20 mg tablet 20 mg PO DAILY budesonide-formoterol [Symbicort] 160-4.5 mcg/actuation HFA aerosol inhaler 2 puff INHALATION BID albuterol sulfate 1 INHALER inhaler 2 puff INHALATION Q6H PRN PRN (Reason: Wheezing/SOB) Patient Comments: Wheezing/SOB tadalafil 5 mg tablet 5 mg PO DAILY Patient Comments: Take 1 tablet by mouth every morning. rivaroxaban 20 mg tablet 20 mg PO DAILY Qty: 30 11RF Rx Instructions: administer with evening meal amlodipine 5 mg tablet 5 mg PO DAILY Qty: 30 11RF furosemide 20 mg tablet 20 mg PO DAILY Qty: 90 3RF amiodarone 200 mg tablet 200 mg PO DAILY Qty: 90 3RF metoprolol succinate 50 mg tablet extended release 24 hr 50 mg PO BID Qty: 180 3RF Referrals / Follow Up: Cheikh Millan MD [Med Staff - Active Staff] - (Please call the office for a 2 week follow-up with Dr. Millan) [facility],[place] [Primary Care Provider] - Disposition Disposition (needs filled in before D/C Order can be placed): Home, Self Care
[2022-12-20 09:32] LABS: Anion Gap 2 (5-15); BUN 19 mg/dL (7-18); BUN/Creat Ratio 20.7 RATIO (10-20); Calcium,Total 8.8 mg/dL (8.5-10.1); Chloride 112 mmol/L (98-107); Creatinine, Serum 0.92 mg/dL (0.70-1.30); EST Glomerular Filtration Rate 88 mL/min (>60); Est Glom Filt Rate - Afr Amer 106 mL/min (>60); Estimated Creatinine Clearance 87.86 ml/min; Glucose 91 mg/dL (74-106); Potassium 4.1 mmol/L (3.5-5.1); Sodium Level 143 mmol/L (136-145)
[2022-12-20] MEDS: Metoprolol(XL)Succ 50 MG Tablet PO (10:18)
[2022-12-20] MEDS: Amiodarone 200 MG Tablet PO (10:18)
[2022-12-20] MEDS: Albuterol 2.5 MG/3 ML VIAL.NEB. INHALATION (12:54)
--- NOTE | 2022-12-20 15:00 | CASEMGMT ---
Patient has order for discharge. RN CM in to discuss needs at discharge. Patient denies needs at discharge. Patient denied further questions or concerns.
--- NOTE | 2022-12-20 15:10 | PHA.DC.MC.R ---
Pharmacy [facility] has performed discharge medication reconciliation and counseling for this patient. The patient was counseled on the following discharge medications and changes in medications for homegoing were reviewed. 1. OXYCODONE The Reason for Use, instructions for use, and potential side effects were reviewed for all new medications. The patient's questions regarding all of their medications were answered. The patient was able to verbally demonstrate an understanding of their discharge medications. The patient's discharge medication list was reviewed for discrepancies and discrepancies were resolved. Patient was counselled by Leigh Ann Russell PharmD Candidate Medications at Discharge Home Medications albuterol sulfate 90 mcg/actuation aerosol inhaler 2 puff inhalation Q6H PRN PRN Wheezing/SOB 07/21/17 lisinopril 20 mg tablet 20 mg PO DAILY 05/23/18 budesonide-formoterol HFA 160 mcg-4.5 mcg/actuation aerosol inhaler (Symbicort) 2 puff inhalation BID 09/19/19 rivaroxaban 20 mg tablet 20 mg PO DAILY #30 tabs 08/17/20 amlodipine 5 mg tablet 5 mg PO DAILY #30 tabs 05/06/21 furosemide 20 mg tablet 20 mg PO DAILY #90 tabs 05/06/21 amiodarone 200 mg tablet 200 mg PO DAILY #90 tabs 05/24/21 metoprolol succinate 50 mg tablet,extended release 24 hr 50 mg PO BID #180 tabs 06/14/21 tadalafil 5 mg tablet 5 mg PO DAILY 12/19/22 oxycodone 5 mg tablet 5 mg PO Q6H PRN PRN Pain Score 6-10 2 days #6 tabs 12/20/22
--- NOTE | 2022-12-20 15:26 | CHAPLAIN ---
Type of Pastoral Visit _x__ Initial Visit ___ Follow-up Visit ___ On-call Visit ___ General Patient Visit ___ Spiritual Assessment ___ Family Conference ___ Bereavement ___ Rapid Response ___ Code Blue ___ Other (describe below) Pastoral Care Referral From _x__ Patient _x__ Family ___ Nurse ___ Physician ___ Motion Picture Scene Builder ___ Varitype Operator ___ Other (describe below) Sacrament/Intervention _x__ Active listening ___ Anointing ___ Nondenominational ___ Bereavement ___ Communion _x__ Magalie exploration ___ ___ Life review _x__ Prayer ___ Reconciliation ___ Sacrament of Sick _x__ Supportive presence ___ Wedding ___ Other (describe below) Pastoral Comments patient and spouse in the room; pt states that he is doing better and has been told he is being discharged; pt states that are just waiting for papers and hopes that will be soon; offer of support; pt and spouse explain the situation and the worries which have been lessened now; pt will return in six weeks for a surgery; pt 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
== END 2022-12-20 18:01 | disposition home or self-care (01) ==
LOC: ED 16:20 → SDC 17:11 → ACINP 17:12 → PCU 20:45 → SDC 12-20 09:43
PROVIDERS: Internal Medicine; Admitting Provider Surgery; Emergency Provider Emergency Medicine; Visit Provider Surgery
PROC: (CPT 49320; principal; 2022-12-19 17:30)
DX: K42.0 Umbilical hernia with obstruction, without gangrene (principal); I11.0 Hypertensive heart disease with heart failure; I50.32 Chronic diastolic (congestive) heart failure; I27.21 Secondary pulmonary arterial hypertension; I48.0 Paroxysmal atrial fibrillation; I48.92 Unspecified atrial flutter; E66.01 Morbid (severe) obesity due to excess calories; Z68.41 Body mass index [BMI] 40.0-44.9, adult; Z95.0 Presence of cardiac pacemaker; Z87.891 Personal history of nicotine dependence; Z79.51 Long term (current) use of inhaled steroids; G47.33 Obstructive sleep apnea (adult) (pediatric); J45.909 Unspecified asthma, uncomplicated; Z79.899 Other long term (current) drug therapy; Z79.01 Long term (current) use of anticoagulants
CPT/HCPCS: 49591; 00750; 36415; 71045; 74177; 80048; 80053; 85025; 93005; 94640; 94668; 96361; 96374; 96375; 96376; 99221; 99284; J7030; Q9967; A4216; G0378; J2405

== ENCOUNTER → 2023-03-29 | Outpatient (CLI) | payer MEDICARE, BC, SELFPAY ==
--- NOTE | 2023-03-29 17:44 | CT_ITS ---
EXAM: CT abdomen and pelvis with contrast. HISTORY: Umbilical Hernia TECHNIQUE: CT Abdomen And Pelvis W/ Contrast Injection. A radiation dose optimization technique was used for this scan. COMPARISON: CT abdomen pelvis December 19, 2022. LIMITATIONS: Motion artifact. LOWER CHEST: Normal. LIVER: Normal. GALLBLADDER: Normal. BILE DUCTS: Normal. PANCREAS: Normal. SPLEEN: Normal. ADRENAL GLANDS: Normal. KIDNEYS/URETERS/BLADDER: Mild perinephric fluid/stranding is nonspecific, but similar to the prior exam. No obstructing stones or hydronephrosis. AORTA: Normal caliber. BOWEL/MESENTERY: A midline ventral hernia near the umbilicus is again identified. The hernia contains only fat. No herniated bowel. No bowel obstruction. No evidence of colitis. APPENDIX: Normal. PERITONEUM: Normal. REPRODUCTIVE ORGANS: Normal. BONES/SOFT TISSUES: No acute fracture. OTHER: None. CONCLUSION: Fat-containing umbilical hernia. No herniated bowel. No bowel obstruction. Electronically Signed: Ney Saul MD at 23:58 EST , CT/Abdomen/Pelvis W IV Cont ONLY IMPRESSION: undefined
[2023-03-29 18:08] LABS: CREATININE FINGERSTICK < 1.0 mg/dL (0.70-1.30); EGFR FINGERSTICK > 60.0000 mL/min (>60)
== END | disposition home or self-care (01) ==
LOC: CT 17:43
PROVIDERS: Referring Provider Surgery; Visit Provider Surgery
DX: K42.9 Umbilical hernia without obstruction or gangrene (principal)
CPT/HCPCS: 74177; Q9967

== ENCOUNTER 2023-04-03 05:41 | Day surgery (SDC) | payer MEDICARE, BC, SELFPAY ==
[2023-03-28 12:12] LABS: Hematocrit 43.3 % (40-54); Hemoglobin 14.3 g/dL (13.0-16.5); Mean Corpuscular Hgb 29.5 pg (27.0-32.0); Mean Corpuscular Volume 89.3 fL (80-94); Mean Platelet Vol. 10.7 fl (6.2-12.0); Platelet Count 222 K/mm3 (150-450); RBC Distribution Width CV 13.2 % (11.6-14.6); RBC Distribution Width SD 43.2 fl (35.1-43.9); Red Blood Count 4.85 M/mm3 (4.6-6.2)
[2023-03-28 12:42] LABS: Anion Gap 6 (5-15); BUN 26 mg/dL (7-18); Chloride 109 mmol/L (98-107); Creatinine, Serum 1.04 mg/dL (0.70-1.30); EST Glomerular Filtration Rate 76 mL/min (>60); Est Glom Filt Rate - Afr Amer 92 mL/min (>60); Glucose 81 mg/dL (74-106); Potassium 4.2 mmol/L (3.5-5.1); Sodium Level 142 mmol/L (136-145)
[2023-04-03] VITALS (8 sets, daily range): BP systolic 121–154; BP diastolic 80–93; PULSE 61–82; RESP 14–16; TEMP 36.2–37.4; O2SAT 92–97; BMI 41.6
[2023-04-03] MEDS: Lactated Ringers 1,000 ML 15 ML IV (06:23)
--- NOTE | 2023-04-03 07:25 | PCM.HP.BLA ---
History and Physical Date of Admission: 04/03/23 Date of Service: 03/22/23 MR#: [id number] Acct: [id number] Name: JANELLE QUIÑONES Rep #: [id number] : 1955 Provider: Dr. Cheikh Millan MD Age/Sex: 68/M Location: [facility] Status: Signed Intake Vital Signs 12/20/2319:59 03/22/2308:22 Height 6 ft 6 ft Weight: 308 lb 4 oz BMI 41.8 BP 131/70 H Blood Pressure Location Rt brachial Position Sitting Respiration 18 Pulse 60 Pulse Source Monitor Temp 97.4 F L Temp Source Temporal Pulse Oximetry (%) 96 Oxygen Delivery Method room air Intake Visit Reasons: Update H/P Hernia Surgery Chief Complaint: update h/p hernia sx Accompanied by: Is patient in pain?: No Allergies Environmental Allergies: Uncoded [hay fever] Allergy (Verified 03/22/23 08:23) NEEDS FOLLOW-UP Medications albuterol sulfate 90 mcg/actuation aerosol inhaler 2 puff inhalation Q6H PRN PRN Wheezing/SOB 07/21/17 [History Confirmed 03/22/23] lisinopril 20 mg tablet 20 mg PO DAILY 05/23/18 [History Confirmed 03/22/23] budesonide-formoterol HFA 160 mcg-4.5 mcg/actuation aerosol inhaler (Symbicort) 2 puff inhalation BID 09/19/19 [History Confirmed 03/22/23] amlodipine 5 mg tablet 5 mg PO DAILY #30 tabs 05/06/21 [Rx Confirmed 03/22/23] furosemide 20 mg tablet 20 mg PO DAILY #90 tabs 05/06/21 [Rx Confirmed 03/22/23] amiodarone 200 mg tablet 200 mg PO DAILY #90 tabs 05/24/21 [Rx Confirmed 03/22/23] metoprolol succinate 50 mg tablet,extended release 24 hr 50 mg PO BID #180 tabs 06/14/21 [Rx Confirmed 03/22/23] tadalafil 5 mg tablet 5 mg PO DAILY 12/19/22 [History Confirmed 03/22/23] rivaroxaban 20 mg tablet 20 mg PO QHS 03/20/23 [History Confirmed 03/22/23] [facility] Medical History Acute posterior anal fissure Anxiety Arthritis Asthma Atypical atrial flutter Bradycardia Cardiology follow-up encounter Chronic diastolic (congestive) heart failure CPAP (continuous positive airway pressure) dependence Essential (primary) hypertension Former smoker Hemorrhoids, internal, with bleeding History of atrial fibrillation History of echocardiogram History of pacemaker History of pain when walking History of stress test Hypertension Morbid obesity with BMI of 40.0-44.9, adult Paroxysmal atrial fibrillation PTSD (post-traumatic stress disorder) Secondary pulmonary arterial hypertension Sick sinus syndrome Vertigo Wears glasses Wears hearing aid Surgical History History of cardiac radiofrequency ablation (08/24/18) History of cardioversion (06/11/18) History of colonoscopy (11/25/19) History of hemorrhoidectomy History of left heart catheterization (07/21/17) Hx of laparoscopy Presence of permanent cardiac pacemaker (12/01/17) Status post bilateral hernia repair Family History Mother Diabetes HypertensionFather Cancer prostateOther CVA (cerebral vascular accident) Social History household members: spouse Smoking Status: Former smoker substance use type: does not use HPI HPI HPI: Patient presents for update H&P following emergent primary repair of umbilical hernia on 12/19/2022. He again presents today with his . His last visit was 01/03/2023. Today he shares that he is overall stable and has been trying to take it easy. However, he states that he starting to see a bulge again. He shares that this is likely happened in the last 1 week. 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 He denies any changes to his bowels. When asked about his cardio activity, unfortunately he states that this remains limited due to his extreme knee pain. Below is recapitulated from patient's prior visit for ease of review: Mr. Quiñones presents with his for second postoperative visit. His last visit 01/03/2023. He reports that overall he remains active and his current weight is about 305 pounds. He states he forgets what his goal weight is. He denies any pain or bulging at his hernia site, however, he does report that he had a close [place] he was pinned up against the pen and partially gored with the horn of the steer just above the bellybutton. He states he was initially quite concerned and almost sought evaluation, but the pain dissipated and he is now doing well. Patient presents following diagnostic laparoscopy with primary repair of umbilical hernia on 12/19/2022. Since hospital discharge they have been doing well. They report no postoperative pain. They report tolerance of a diet and that their bowel movements have been regular. They have no wound concerns. Mr. Quiñones confesses that he is been doing some activity that may exceed his 10 pound recommendation and his adds that he was doing some riding lawn mowing the day after his hospital discharge. He states that overall if he feels any point he backs off of that activity. He reports some feelings of discouragement with his weight loss as he is not able to walk much given his arthritis in his knee. He does state that cycling is better for him from that respect. Exam Const General: cooperative, comfortable and anxious Orientation: alert, awake and oriented x3 Resp Effort & Inspection: normal respiratory effort GI Other: Obese, well-healed incisions directly over patient's umbilicus and along right abdominal wall. There is a palpable bulge along the right side of patient's umbilical incision and there is some soft tissue that appears to have herniated over the fascial edges. The fascial defect seems to be approximately 2 cm in diameter, however, the exam is somewhat limited by patient's habitus and the persistently herniated contents above the fascia. Assessment and Plan Assessment and Plan (1) Status post umbilical hernia repair, follow-up exam: Status: Acute Comment: Patient is a 68-year-old male who presents for update H&P visit following emergent diagnostic laparoscopy with primary umbilical hernia repair after he presented with an incarcerated and strangulated umbilical hernia 12/19/2022. Unfortunately, he has experienced recurrence of his hernia. This largely feels to be about the same size as when he initially presented, yet I am unable to say definitively since there certain limitations of the exam. Given this limitation I would like to proceed with repeat CT imaging for preoperative planning purposes. Also unfortunately Mr. Quiñones has had little success with the requested weight loss and is limited in his activity by severe arthritis in his knee joints. Given his prior emergency room visit due to incarceration, I believe it is best to proceed with repair of his hernia and doing so during a planned hold of his Xarelto therapy. Still, I have asked him to strongly consider a proactive approach to his activity that would hopefully allow this to be his highest weight and thereafter achieve a lower body mass index. I have readdressed with him that this does put him at an increased risk for recurrence, but unfortunately I do not see waiting any longer as being beneficial and conversely putting him at some risk for a recurrent emergency situation. The details of the procedure were reviewed?including post procedure activity restrictions. Mr. Quiñones expresses an understanding and willingness to comply as directed. Procedure presently set for April 03, 2023 Plan: ? Obtain CT imaging of the abdomen pelvis for preoperative planning ? Continue to plan for robot-assisted umbilical hernia repair with mesh placement (patient will require hold of his Xarelto 48 hours pre and post procedure) I have examined the patient the following changes are noted:Date of Service: 03/22/23 MR#: [id number] Acct: [id number] Name: JANELLE QUIÑONES Rep #: [id number] : 1955 Provider: Dr. Cheikh Millan MD Age/Sex: 68/M Location: [facility] Status: Signed Intake Vital Signs 12/20/2319:59 03/22/2308:22 Height 6 ft 6 ft Weight: 308 lb 4 oz BMI 41.8 BP 131/70 H Blood Pressure Location Rt brachial Position Sitting Respiration 18 Pulse 60 Pulse Source Monitor Temp 97.4 F L Temp Source Temporal Pulse Oximetry (%) 96 Oxygen Delivery Method room air Intake Visit Reasons: Update H/P Hernia Surgery Chief Complaint: update h/p hernia sx Accompanied by: Is patient in pain?: No Allergies Environmental Allergies: Uncoded [hay fever] Allergy (Verified 03/22/23 08:23) NEEDS FOLLOW-UP Medications albuterol sulfate 90 mcg/actuation aerosol inhaler 2 puff inhalation Q6H PRN PRN Wheezing/SOB 07/21/17 [History Confirmed 03/22/23] lisinopril 20 mg tablet 20 mg PO DAILY 05/23/18 [History Confirmed 03/22/23] budesonide-formoterol HFA 160 mcg-4.5 mcg/actuation aerosol inhaler (Symbicort) 2 puff inhalation BID 09/19/19 [History Confirmed 03/22/23] amlodipine 5 mg tablet 5 mg PO DAILY #30 tabs 05/06/21 [Rx Confirmed 03/22/23] furosemide 20 mg tablet 20 mg PO DAILY #90 tabs 05/06/21 [Rx Confirmed 03/22/23] amiodarone 200 mg tablet 200 mg PO DAILY #90 tabs 05/24/21 [Rx Confirmed 03/22/23] metoprolol succinate 50 mg tablet,extended release 24 hr 50 mg PO BID #180 tabs 06/14/21 [Rx Confirmed 03/22/23] tadalafil 5 mg tablet 5 mg PO DAILY 12/19/22 [History Confirmed 03/22/23] rivaroxaban 20 mg tablet 20 mg PO QHS 03/20/23 [History Confirmed 03/22/23] [facility] Medical History Acute posterior anal fissure Anxiety Arthritis Asthma Atypical atrial flutter Bradycardia Cardiology follow-up encounter Chronic diastolic (congestive) heart failure CPAP (continuous positive airway pressure) dependence Essential (primary) hypertension Former smoker Hemorrhoids, internal, with bleeding History of atrial fibrillation History of echocardiogram History of pacemaker History of pain when walking History of stress test Hypertension Morbid obesity with BMI of 40.0-44.9, adult Paroxysmal atrial fibrillation PTSD (post-traumatic stress disorder) Secondary pulmonary arterial hypertension Sick sinus syndrome Vertigo Wears glasses Wears hearing aid Surgical History History of cardiac radiofrequency ablation (08/24/18) History of cardioversion (06/11/18) History of colonoscopy (11/25/19) History of hemorrhoidectomy History of left heart catheterization (07/21/17) Hx of laparoscopy Presence of permanent cardiac pacemaker (12/01/17) Status post bilateral hernia repair Family History Mother Diabetes HypertensionFather Cancer prostateOther CVA (cerebral vascular accident) Social History household members: spouse Smoking Status: Former smoker substance use type: does not use HPI HPI HPI: Patient presents for update H&P following emergent primary repair of umbilical hernia on 12/19/2022. He again presents today with his . His last visit was 01/03/2023. Today he shares that he is overall stable and has been trying to take it easy. However, he states that he starting to see a bulge again. He shares that this is likely happened in the last 1 week. 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 He denies any changes to his bowels. When asked about his cardio activity, unfortunately he states that this remains limited due to his extreme knee pain. Below is recapitulated from patient's prior visit for ease of review: Mr. Quiñones presents with his for second postoperative visit. His last visit 01/03/2023. He reports that overall he remains active and his current weight is about 305 pounds. He states he forgets what his goal weight is. He denies any pain or bulging at his hernia site, however, he does report that he had a close cough with one of [place] where he was pinned up against the pen and partially gored with the horn of the steer just above the bellybutton. He states he was initially quite concerned and almost sought evaluation, but the pain dissipated and he is now doing well. Patient presents following diagnostic laparoscopy with primary repair of umbilical hernia on 12/19/2022. Since hospital discharge they have been doing well. They report no postoperative pain. They report tolerance of a diet and that their bowel movements have been regular. They have no wound concerns. Mr. Quiñones confesses that he is been doing some activity that may exceed his 10 pound recommendation and his adds that he was doing some riding lawn mowing the day after his hospital discharge. He states that overall if he feels any point he backs off of that activity. He reports some feelings of discouragement with his weight loss as he is not able to walk much given his arthritis in his knee. He does state that cycling is better for him from that respect. Exam Const General: cooperative, comfortable and anxious Orientation: alert, awake and oriented x3 Resp Effort & Inspection: normal respiratory effort GI Other: Obese, well-healed incisions directly over patient's umbilicus and along right abdominal wall. There is a palpable bulge along the right side of patient's umbilical incision and there is some soft tissue that appears to have herniated over the fascial edges. The fascial defect seems to be approximately 2 cm in diameter, however, the exam is somewhat limited by patient's habitus and the persistently herniated contents above the fascia. Assessment and Plan Assessment and Plan (1) Status post umbilical hernia repair, follow-up exam: Status: Acute Comment: Patient is a 68-year-old male who presents for update H&P visit following emergent diagnostic laparoscopy with primary umbilical hernia repair after he presented with an incarcerated and strangulated umbilical hernia 12/19/2022. Unfortunately, he has experienced recurrence of his hernia. This largely feels to be about the same size as when he initially presented, yet I am unable to say definitively since there certain limitations of the exam. Given this limitation I would like to proceed with repeat CT imaging for preoperative planning purposes. Also unfortunately Mr. Quiñones has had little success with the requested weight loss and is limited in his activity by severe arthritis in his knee joints. Given his prior emergency room visit due to incarceration, I believe it is best to proceed with repair of his hernia and doing so during a planned hold of his Xarelto therapy. Still, I have asked him to strongly consider a proactive approach to his activity that would hopefully allow this to be his highest weight and thereafter achieve a lower body mass index. I have readdressed with him that this does put him at an increased risk for recurrence, but unfortunately I do not see waiting any longer as being beneficial and conversely putting him at some risk for a recurrent emergency situation. The details of the procedure were reviewed?including post procedure activity restrictions. Mr. Quiñones expresses an understanding and willingness to comply as directed. Procedure presently set for April 03, 2023 Plan: ? Obtain CT imaging of the abdomen pelvis for preoperative planning ? Continue to plan for robot-assisted umbilical hernia repair with mesh placement (patient will require hold of his Xarelto 48 hours pre and post procedure) I have examined the patient and the H&P has been reviewed. There are no clinical changes since date of exam. He confirms that he has held Xarelto for the last [address] imaging of the abdomen pelvis showed a 3 x 4 cm hernia defect containing fat. Patient's spouse shares that her has complained of some increased pain of late but he continues to have normal bowel function and on exam his hernia contents remain soft. Procedure and post procedure expectations (particularly his lifting restrictions) were reviewed. Proceed to the operating room for umbilical hernia repair as discussed above
--- NOTE | 2023-04-03 07:30 | SOF_PTH ---
PATIENT: JANELLE QUIÑONES LOC: [facility] [place] U#:[id number] AGE/SX: 68/M ROOM: RE04/03/[address]: Dr. Cheikh Millan MD : 1955 BED: DIS: 04/03/2023 SPEC #: [id number] RECD: 04/03/23 13:26 STATUS: FROY NORAH #: [id number] HERMILA: 04/03/23 07:[address]: Cheikh Millan DEPT: SURGICAL PATHOLOGY RECD BY: Lorena Castle ENTERED: 04/03/23 13:44 SP TYPE: SOFT TISS OTHR DR: Dr. Sherif Kiser MD [facility] Tissues: Peritoneum, NOS Procedures: Surgery Specimen Level IV HEADER OPERATION: Robotic umbilical hernia with mesh PRE-OP DIAGNOSIS: Recurrent hernia after primary repair of umbilical hernia on 12/19/22 TISSUE SUBMITTED: Peritoneal fat MICROSCOPIC DIAGNOSIS Peritoneal fat: Mature adipose tissue with focal area of congestion and hemorrhage. SJ:maru 04/04/2023 MICROSCOPIC DESCRIPTION Slides are reviewed. GROSS DESCRIPTION Received in fixative is one container labeled with the patient's name and designated peritoneal fat. The specimen consists of a piece of adipose tissue measuring 3.5 x 2.0 x 0.5 cm. Focal areas of congestion are noted. No mass lesion is identified. The specimen is totally submitted in one cassette. / JESENIA:maru 04/03/2023 TC:5 CPT: 32423
[2023-04-03] MEDS: Cefazolin 3 GM in 0.9% Normal Saline (100mL Bag) 100 ML IV (07:41)
[2023-04-03] MEDS: BUPIVACAINE LIPOSOME/PF 20 ML VIAL OPERA.SITE (07:55)
[2023-04-03] MEDS: 0.9% Saline Lock 10 ML Syringe IV (07:55)
[2023-04-03] MEDS: Bupivacaine 0.25% 30 ML Vial ×2 (07:55)
--- NOTE | 2023-04-03 11:13 | OP.PCM_ITS ---
Report of Operation Date of Procedure: 04/03/23 Pre-Operative Diagnosis: Recurrent umbilical hernia Post-Operative Diagnosis: Same Surgery/Procedure Performed:: Robot-assisted repair of recurrent umbilical hernia with intraperitoneal onlay mesh Description of Surgical Findings:: ? 2.5 x 2.5 cm fascial defect (containing fat and therefore somewhat larger) for umbilical hernia Surgeon: Cheikh Millan hair boiler: Carlos Eduardo Mcdermott Type of Anesthesia: General/Supplemental Anesthesiologist: Sherif Kiser Specimen's removed: intraperitoneal fat Estimated Blood Loss (mL): 20 Description of Procedure: After appropriate identification in the preoperative holding area, the patient was brought to the operating room suite where he was positioned supine the operating table. Preoperative antibiotics were administered. Patient was then induced with a general anesthetic. Patient's abdomen was prepped and draped in the usual sterile fashion. A formal timeout followed to confirm patient and procedure. Procedure was begun with a Rizzo entry at Oliva's point. Once the set point pressure was reached laparoscopic investigation revealed no inadvertent injury to the viscera below. 2 additional 8 mm robotic trocars were placed along the abdominal wall laterally taking care to avoid the bony prominences of the costal margin and the ASIS. A transversus abdominis plane block was created with cocktail of bupivacaine, Exparel, and saline under lapa roscopic vision as these ports were placed. The robot was then brought in and docked in standard fashion. Robotically a the falciform ligament was displaced from the abdominal wall in a cephalad direction and peritoneal fat on the remaining 3 sides of the hernia defect were dissected off the underside of the abdominal wall with monopolar scissors. Perforating vessels were sealed with bipolar energy to maintain hemostasis. I then addressed the hernia directly by placing downward traction on the hernia sac and encountered a large lobule of fat mixed with this hernia sac. Carefully applying manual traction downward the monopolar scissor was used to dissect this fat lobule off the underside of the peritoneum. The hernia defect was closed with a 6 inch #1 stratafix suture by running the fascial defect closed and then running the suture back upon itself. Next a 10 x 12 (initially 10 x 15 but cut down) Ventralight ST mesh was introduced into the peritoneum and a 3-0 V-Loc suture was used to chandelier the mesh. This V-Loc suture was then run towards the operating side of the opening and then circumferentially about the periphery of the mesh in a baseball stitch. A total of 4X 3-0 V-Loc sutures was required to tack the periphery of the mesh. I then ran a separate suture down the longitudinal midline of the mesh to afford tighter approximation with the abdominal wall. A 3-0 Vicryl suture was then used to loosely tacked the detach falciform back to the mesh in the cephalad direction. All needles were removed from the peritoneum aside from one needle that had inadvertently been dropped along the left paracolic gutter out of reach of the robot. The robot was then undocked and this last needle was retrieved and placed in a Endo Catch bag for safe delivery from the peritoneum. Once our case counts were confirmed as correct, the trocars were removed. Additional local anesthetic was instilled and the left upper quadrant port site that had been accessed via Rizzo entry was closed at the fascia using 0 Vicryl in a [id number] fashion. Then the skin of all port sites were closed with interrupted 4-0 Monocryl in subcuticular fashion. Steri-Strips and OpSite dr polanco were applied. Patient was transferred to PACU for ongoing care. Grafts/Implants Used: Ventral light 10 x 15 mesh, reference [id number], lot [id number] Complications None Admit VTE Documentation VTE Mechan Device Prophylaxis: SCD's Procedures Digestive 40xxx-49xxx: 58210 RPR AA HRN 1ST < 3 CM RDC
--- NOTE | 2023-04-03 11:15 | EX.PCM.DISCH ---
Discharge Instructions Diet Discharge Diet: No restrictions Activity Discharge Activity: May Not Drive (While taking narcotic pain medication) and May Shower May shower in (days): 2 Ice area for (Minutes): 20 Lifting Restrictions: No lifting greater than 10 pounds for the next 5 weeks Dressing / Incision Call your doctor if your incision/area has: Continuous Slow Oozing, Increased Pain/ Swelling, Increased Redness, Foul Smelling Discharge and Swelling at the incision site Call your doctor if you observe: Fever of 101 or Higher, Inability to urinate and Inability to have a bowel movement Remove Dressing in: 2 days Cleanse incision/area with: Soap & Water and Keep Dressing Clean & Dry Follow Up Care Please Follow Up With: Cheikh Millan MD When: 1 week postop Test Results: Test results from this visit will be discussed in further detail at your follow-up appointment, if applicable. Discharge Plan Admission Primary Reason for Your Visit: Umbilical hernia repair Attending Provider: Cheikh Millan Primary Care Provider: [facility],[place] Consulting Providers: Sherif Kiser Instructions Additional Instructions / Restrictions: Resume Xarelto in 72 hours Discharge Orders/Prescriptions Prescriptions: New oxycodone 5 mg tablet 5 mg PO Q6H PRN (Reason: pain) 5 Days Qty: 14 0RF Continued lisinopril 20 mg tablet 20 mg PO DAILY budesonide-formoterol [Symbicort] 160-4.5 mcg/actuation HFA aerosol inhaler 2 puff INHALATION BID albuterol sulfate 1 INHALER inhaler 2 puff INHALATION Q6H PRN PRN (Reason: Wheezing/SOB) Patient Comments: Wheezing/SOB tadalafil 5 mg tablet 5 mg PO DAILY Patient Comments: Take 1 tablet by mouth every morning. rivaroxaban 20 mg tablet 20 mg PO QHS Rx Instructions: administer with evening meal amlodipine 5 mg tablet 5 mg PO DAILY Qty: 30 11RF furosemide 20 mg tablet 20 mg PO DAILY Qty: 90 3RF amiodarone 200 mg tablet 200 mg PO DAILY Qty: 90 3RF metoprolol succinate 50 mg tablet extended release 24 hr 50 mg PO BID Qty: 180 3RF Referrals / Follow Up: Cheikh Millan MD [[facility] Staff - Active Staff] - [facility] Doctor,Out of [Non-Staff] - Disposition Disposition (needs filled in before D/C Order can be placed): Home, Self Care
[2023-04-03] MEDS: oxyCODONE 5 MG Tablet PO (12:32)
== END 2023-04-03 13:21 | disposition home or self-care (01) ==
LOC: SDC 05:42 → AC 05:42
PROVIDERS: Anesthesiology; Referring Provider Surgery; Visit Provider Surgery
PROC: (CPT 49615; principal; 2023-04-03 07:10)
DX: K42.9 Umbilical hernia without obstruction or gangrene (principal); I11.0 Hypertensive heart disease with heart failure; I50.32 Chronic diastolic (congestive) heart failure; I48.0 Paroxysmal atrial fibrillation; Z68.41 Body mass index [BMI] 40.0-44.9, adult; E66.01 Morbid (severe) obesity due to excess calories; Z79.899 Other long term (current) drug therapy; Z95.0 Presence of cardiac pacemaker; Z87.891 Personal history of nicotine dependence; J45.909 Unspecified asthma, uncomplicated
CPT/HCPCS: 49615; 00830; 36415; 80048; 85027; 87081; 88305; J7120; A4216; C1781; J2405

== ENCOUNTER 2023-09-13 12:30 | Outpatient (RCR) | payer MEDICARE, BC, SELFPAY ==
--- NOTE | 2023-08-11 12:56 | HP.PTEVAL ---
Patient's Visit Information Visit Information Visit Information: JANELLE QUIÑONES is a 68 year old M referred to Physical Therapy by JOHNNA ALVARADO with a diagnosis of L TKA 08/08/23. Date of Evaluation: 08/11/23 Physical Therapist: Rod Topete, PT, ATC Visit Plan Frequency: 2-3x /Week Duration: 4-6 Weeks Plan: L knee PROM/mobs, stretching and strengthening, core strengthening, balance and proprio, nustep, and HEP Subjective Subjective: DOS: 08/08/23. Pt reports he had a L TKA performed at that time. Pt reports his nerve block has worn off and he is in a lot of pain today. Pt reports he was in a lot of pain for 3-4 years prior to having his L knee replacement. Pt reports his R knee needs to be replaced here in the next year. Pt reports he has had 3 knee arthroscopies in both knees in an attempt to put off having this surgery. Pt reports his balance was getting very poor prior to having this surgery. Pt reports his L LE is the most sore at the joint and where the tourniquet was placed. 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 Pt reports he has neuropathy in both of his LE's, but no other LE tingling or numbness. Pt reports he has stairs at home which he has to negotiate one step at a time. L knee pain is rated at 8/10 while sitting here in the clinic at rest and pretty much has remained at that level Pain L TKA: Pain Intensity (Out of 10): 8 Pain Intensity Range: 8 Objective Objective: Neuro: B LE sensation is WNL to light touch. Girth at joint line: L knee 49 cm, R knee 45 cm ROM: R knee 0-115 degrees, L knee 0-20-95 degrees MMT: R knee flex= 32, ext= 52 #F; L knee flex= 14, ext= 6 #F Tu sec Gait: Pt ambulates with a step to pattern. Slow seth. Very limited with distance as performing the TUG test was difficult. Balance/Special Test Scores Lower Extremity Functional Score: 7 Goals Goal 1:: Decrease L knee pain x 50% to aid with sleep Goal Time Frame: 4-6 Weeks Goal 2:: Increase L knee strength x 10#F to aid with stair negotiation Goal Time Frame: 4-6 Weeks Goal 3:: Increase L knee ROM x 20 degrees to aid with restoring a more normalized gait pattern Goal Time Frame: 4-6 Weeks Goal 4:: I with HEP Goal Time Frame: 4-6 Weeks Rehabilitation Potential Physical Therapy Diagnosis: Pt has L knee pain, weakness, and limited ROM secondary to L TKA Rehabilitation Potential: Good Anticipated Interventions Patient/Client Instruction: Educate patient on: Condition and Plan of Care For the Purpose of:: To improve self management Therapeutic Exercise to Include: Strength training, Endurance training, Balance training, Flexibilty training, Gait and locomotor training, Passive ROM, Active ROM and Dynamic Lumbar Stabilization For the Purpose of:: To decrease pain, To increase ROM and To improve muscle performance and motor function Cryotherapy (ice pack, ice massage): Yes For the Purpose of:: To decrease pain, To increase ROM and To improve muscle performance and motor function Text: Thank you for the opportunity to evaluate your patient. For Medicare and Medicare HMO plans, please review the plan of care and approve it. It will need to be FAXED BACK to us at [phone] for Medicare purposes. For Medicare only, by signing this I certify the plan of care. Please let me know if there are questions or concerns regarding this plan of care. Physician Signature: Date:
--- NOTE | 2023-09-13 13:53 | HP.PTDCSUM ---
Discharge Summary D/C summary: It has been my pleasure to treat JANELLE QUIÑONES referred by RUBÉN KELLY NP-Los, with the diagnosis of L TKA 08/08/23 for a total of 11 visit(s). Discharge Date: 09/13/23 Please see the following information for a summary of their discharge status. Subjective Subjective: PATIENT REPORTS HER ROTATED HIS TRUCK TIRES YESTERDAY AND MOWED THE LAWN. HAS ALSO CHANGED THE CARBURETOR AND IS PRETTY MUCH DOING EVERYTHING. REPORTS DR. MEDELLIN WAS REALLY HAPPY WITH HOW HE IS DOING AND RELEASED HIM 08/29/24. HE SAID I'M AHEAD OF THE PACK. I'M STILL HAVING TROUBLE PUTTING A LOT OF PRESSURE ON IT FOR LONG PERIODS OF TIME AND IM STILL DEALING WITH SWELLING. REPORTS COMPLIANCE WITH HIS HOME EX PROGRAM. Pain L TKA: Pain Intensity (Out of 10): 3 Overall Improvement % Improvement: 85 Objective Objective/Function: Girth at joint line: L knee 53 cm. Patient reports his swelling has come down a lot but is still a problem. Isn't able to elevate it during the day. ROM: L knee 0-13-110 degrees MMT: R knee flex= 36.2, ext= 41.2 #F; L knee flex= 36.6, ext=39 #F Tu.31 sec without AD. Other: Patient states he would like to try to continue exercising on his own for at least a few weeks and will contract Dr. Medellin to come back if needed. Goals Goal 1:: Decrease L knee pain x 50% to aid with sleep Goal Progress: Goal Met Goal 2:: Increase L knee strength x 10#F to aid with stair negotiation Goal Progress: Goal Met Goal 3:: Increase L knee ROM x 20 degrees to aid with restoring a more normalized gait pattern Goal Progress: Goal Met Goal 4:: I with HEP Goal Progress: Goal Met Plan Plan: D/C to indep exercise. D/C Information d/c sentence: If there are questions or concerns regarding this patient's physical therapy, please feel free to call me at [phone]. Thank you for the referral of this patient. Sincerely, Rosalia Leggett, PT, Cert MDT Balance/Gait/Functional tests Balance/Special Test Scores Lower Extremity Functional Score: 7 WOMAC Total Score: 25 WOMAC Percentage: 71.6000 Improvement % Improvement: 85
== END 2023-09-13 19:00 | disposition home or self-care (01) ==
LOC: PT 12:30
PROVIDERS: Referring Provider Nurse Practitioner Family; Visit Provider Nurse Practitioner Family
DX: M17.12 Unilateral primary osteoarthritis, left knee (principal)
CPT/HCPCS: 97016; 97110; 97140; 97161; 97530

== ENCOUNTER → 2023-11-13 | Outpatient (CLI) | payer MEDICARE, BC, SELFPAY ==
[2023-11-13 10:35] LABS: Absolute Lymphocyte Count 2.09 X10^3/uL (0.83-4.51); Absolute Neutrophil Count 3.6 X10^3/uL (2.0-7.7); Basophil# 0.09 X10^3/uL; Basophil% 1.4 % (0-1); Eosinophil# 0.17 X10^3/uL; Eosinophils% 2.6 % (0-5); Hematocrit 40.5 % (40-54); Hemoglobin 12.6 g/dL (13.0-16.5); Lymphocyte # 2.09 X10^3/ul (0.83-4.51); Mean Corp Hgb Conc 31.1 g/dL (32-36); Mean Corpuscular Hgb 26.9 pg (27.0-32.0); Mean Corpuscular Volume 86.5 fL (80-94); Mean Platelet Vol. 11.2 fl (6.2-12.0); Monocyte# 0.59 X10^3/uL; NRBC Flagged by Analyzer 0 % (0-5); Neutrophil # 3.58 X10^3/uL (2.7-7.7); Neutrophil % 54.8 % (47-70); Platelet Count 215 K/mm3 (150-450); RBC Distribution Width CV 14.3 % (11.6-14.6); RBC Distribution Width SD 45.4 fl (35.1-43.9); Red Blood Count 4.68 M/mm3 (4.6-6.2); White Blood Count 6.5 K/mm3 (4.4-11.0)
[2023-11-13 11:25] LABS: Anion Gap 9 (5-15); BUN 29 mg/dL (7-18); BUN/Creat Ratio 29.3 RATIO (10-20); Calcium,Total 9.3 mg/dL (8.5-10.1); Chloride 107 mmol/L (98-107); Creatinine, Serum 0.99 mg/dL (0.70-1.30); EST Glomerular Filtration Rate 80 mL/min (>60); Est Glom Filt Rate - Afr Amer 97 mL/min (>60); Glucose 88 mg/dL (74-106); Potassium 3.9 mmol/L (3.5-5.1); Sodium Level 141 mmol/L (136-145)
== END | disposition home or self-care (01) ==
LOC: LAB 09:27
PROVIDERS: Referring Provider Internal Medicine Cardiovascular Disease; Visit Provider Internal Medicine Cardiovascular Disease
DX: I34.0 Nonrheumatic mitral (valve) insufficiency (principal)
CPT/HCPCS: 36415; 80048; 85025

== ENCOUNTER → 2023-11-13 | Outpatient (CLI) | payer MEDICARE, BC, SELFPAY ==
--- NOTE | 2023-11-13 07:45 | ECHOD_ITS ---
Reason For Study: Mitral Regurgitation Procedure This was a 2D Doppler, Color Flow transthoracic echocardiogram. Exam performed in department. Left Ventricle Moderately dilated left ventricle. The left ventricular ejection fraction is 60 %. No regional wall motion abnormalities noted. Right Ventricle Normal RV size. ICD or pacer leads identified within the right ventricle. Normal systolic function. Atria The left atrium is severely enlarged. The right atrium is moderately enlarged. Mitral Valve There is Mild focal posterior mitral annular calcification. Moderately severe (3+) eccentric mitral valve insufficiency. Tricuspid Valve Normal tricuspid valve. Mild (1+) tricuspid valve insufficiency. Pulmonary artery systolic pressure is 34 mmHg. Aortic Valve Trisinus/trileaflet aortic valve. Pulmonic Valve Normal pulmonic valve. Great Vessels Normal aortic root. The pulmonary artery is normal size. Inferior vena cava collapse with respiration. Pericardium/Pleural No pericardial effusion. MMode/2D Measurements & Calculations LVIDd: 6.8 cm IVSd: 1.3 cm Ao root diam: 3.3 cm LVIDs: 4.0 cm LVPWd: 1.4 cm RVDd: 4.2 cm FS: 41.7 % LAV(MOD-bp): 167.6 ml LVAd ap4: 40.9 cm2 SV(MOD-sp4): 102.7 ml LAV(MOD-bp) Indexed: 64.4 ml/m2 LVLd ap4: 8.4 cm LAV(MOD-sp2): 154.6 ml EDV(MOD-sp4): 167.9 ml LAV(MOD-sp4): 152.2 ml EDV(sp4-el): 169.5 ml LVAs ap4: 23.6 cm2 LVLs ap4: 7.4 cm ESV(MOD-sp4): 65.2 ml ESV(sp4-el): 63.7 ml EF(MOD-sp4): 61.2 % EF(sp4-el): 62.4 % SV(sp4-el): 105.8 ml LA A4 area: 39.0 cm2 LA dimension(2D): 5.8 cm RA A4 area: 32.9 cm2 Time Measurements MV dec time: 0.20 sec Doppler Measurements & Calculations MV E max traci: 125.5 cm/sec MV dec slope: 638.8 cm/sec2 Ao V2 max: 180.9 cm/sec MV A max traci: 36.5 cm/sec Ao max P.1 mmHg MV E/A: 3.4 Ao V2 mean: 126.9 cm/sec Ao mean P.3 mmHg Ao V2 VTI: 38.1 cm AV (velocity ratio): 0.84 LV V1 max: 137.2 cm/sec PA V2 max: 167.9 cm/sec TR max traci: 275.1 cm/sec LV V1 max P.5 mmHg PA V2 mean: 96.4 cm/sec TR max P.3 mmHg LV V1 mean P.2 mmHg LV V1 mean: 93.8 cm/sec LV V1 VTI: 32.1 cm ECHO/Echo Complete Interpretation Summary Moderately dilated left ventricle. The left ventricular ejection fraction is 60 %. ICD or pacer leads identified within the right ventricle. The left atrium is severely enlarged. The right atrium is moderately enlarged. Moderately severe (3+) eccentric mitral valve insufficiency. Ordering Physician: Omer Wray Referring Physician: [facility] Performed By: Clemencia Lima RDCS
== END | disposition home or self-care (01) ==
LOC: CVS 07:39
PROVIDERS: Referring Provider Internal Medicine Cardiovascular Disease; Visit Provider Internal Medicine Cardiovascular Disease
DX: I34.0 Nonrheumatic mitral (valve) insufficiency (principal)
CPT/HCPCS: 36415; 80048; 85025; 93306

== ENCOUNTER 2023-11-21 06:43 | Day surgery (SDC) | payer MEDICARE, BC, SELFPAY ==
[2023-11-20 09:56] VITALS: BMI 43.2
--- NOTE | 2023-11-21 09:05 | CL.D_ITS ---
Patient Name: JANELLE QUIÑONES Study Date: 11/21/2023 Performing: Omer Wray MD Ht: 72 inches 182.88 cm : 1955 Wt: 319.01 lbs 144.7 kg Age: 68 Gender: male BSA: 2.6 PROCEDURE(S) PERFORMED DC01-(03293)LHC/COR/LV CLINICAL PROFILE AND INDICATIONS Indications: Valvular Disease Heart Failure: None Stress/Imaging Stress/Image Study Performed: No CAD Presentations: Other: sob CONCLUSIONS Normal coronary arteries 2-3+ mitral regurgitation. RECOMMENDATIONS ELEN and consider MV surgery. DESCRIPTION OF PROCEDURE The patient arrived to the procedure lab. The risks and benefits of the procedure as well as a full description of our services here and current unavailability of surgical backup were fully explained to the patient and/or their significant other prior to the catheterization. The Timeout was completed, verifying the correct patient and procedure. The patient's procedural site was prepped and draped in the usual fashion. Local anesthetic was given subcutaneously to right radial region with Lidocaine 2%. Using a modified Seldinger technique, arterial access was obtained via the right radial artery, a 6Fr sheath was inserted. Right Coronary Artery selective angiography was then performed in multiple views using a 5 Fr. 4.0 [place] catheter. Left Coronary Artery selective angiography was performed in multiple views using a 5 Fr. JL4 catheter. Left Ventriculography was performed in GIFFORD projection using a 5 Fr. Pigtail catheter. LV to AO pullback pressures were then recorded.The arterial sheath was pulled and a TR Band was applied for hemostasis CORONARY ANGIOGRAPHY DOMINANCE: Right Dominant LEFT HEART ASSESSMENT Left Ventricular Ejection Fraction: by LV Gram 55 % Normal LV wall motion Normal Left Ventricular systolic function LEFT MAIN: Angiographically normal LEFT ANTERIOR DESCENDING ARTERY: Angiographically normal CIRCUMFLEX ARTERY: Angiographically normal RIGHT CORONARY ARTERY: Angiographically normal VALVE FINDINGS: Mitral Valve Insufficiency - Grade 2 Mitral Valve Insufficiency - Grade 3 COMPLICATIONS No Complications PROCEDURE MEDICATIONS Fentanyl 50 mcg IV Versed 1 mg IV Versed 1 mg IV Fentanyl 25 mcg IV Oxygen: 2 L/min via nasal cannula Aspirin (325mg) 1 Tabs PO @ 11/21/2023 07:17:18 Heparin given IA 11/21/2023 08:27:54 Verapamil 2.5mg, Ntg 100mcgs, 3000 units of Heparin given IA 11/21/2023 08:27:54 SUMMARY OF HEMODYNAMIC DATA Time AIR REST ECG 07:16:47 ECG 08:16:06 AO 107/66 (84) SA 08:43:32 LV 103/0, 13 08:53:01 LV 103/-1, 14 08:53:11 LV 103/5, 15 08:54:28 LVp 103/1, 15 08:54:37 AOp 98/61 (78) 08:54:44 Signed By Omer Wray MD On 11/21/2023 09:04:45 Omer Wray MD
--- NOTE | 2023-11-21 10:54 | ECHOTEE_ITS ---
Reason For Study: Mitral Regurgitation Medication ELEN probe 6VT-D (SN [id number]) passed without difficulty. No complications were noted. Cetacaine Topical Petros given X3 orally. Versed 2 mg given slow IVP. Fentanyl 50 mcg given slow IVP. Performed a rapid injection of agitated mix of 9 cc saline and 1cc air to assess for atrial septal defect. Left Ventricle Normal LV size. The left ventricular ejection fraction is 60 %. No regional wall motion abnormalities noted. Right Ventricle Normal RV size. ICD or pacer leads identified within the right ventricle. The right ventricular wall motion is normal. Atria Patent foramen ovale. The left atrium is moderately enlarged. Normal right atrium. ICD or pacer leads identified within the right atrium. Prominent eustachian valve. Mitral Valve Bileaflet diffuse mitral valve thickening. Severe (4+) eccentric mitral valve insufficiency. Tricuspid Valve Normal tricuspid valve. Mild to moderate (1-2+) tricuspid valve insufficiency. Aortic Valve Normal aortic valve. Trisinus/trileaflet aortic valve. Pulmonic Valve Normal pulmonic valve. Vessels Normal aortic root. The pulmonary artery is normal size. Pulmonary venous flow systolic flow reversal. Pericardium No pericardial effusion. ECHO/Echo Transesophageal (ELEN) Interpretation Summary Normal LV size. The left ventricular ejection fraction is 60 %. The left atrium is moderately enlarged. Patent foramen ovale. Bileaflet diffuse mitral valve thickening. Severe (4+) eccentric mitral valve insufficiency. Ordering Physician: Omer Wrya Referring Physician: Omer Wray MD Performed By: Mercedes Jara RDCS and Student
== END 2023-11-21 12:45 | disposition home or self-care (01) ==
PROVIDERS: Referring Provider Internal Medicine Cardiovascular Disease; Visit Provider Internal Medicine Cardiovascular Disease
DX: I34.0 Nonrheumatic mitral (valve) insufficiency (principal); I11.0 Hypertensive heart disease with heart failure; I50.32 Chronic diastolic (congestive) heart failure; I48.0 Paroxysmal atrial fibrillation; Z79.51 Long term (current) use of inhaled steroids; Z79.899 Other long term (current) drug therapy; Z79.01 Long term (current) use of anticoagulants; Z95.0 Presence of cardiac pacemaker; Z87.891 Personal history of nicotine dependence
CPT/HCPCS: 93312; 93320; 93325; 93458; 99152; 99153; C1769; Q9967; A4216; C1894

== ENCOUNTER → 2024-02-14 | Outpatient (CLI) | payer MEDICARE, BC, SELFPAY ==
--- NOTE | 2024-02-14 10:37 | RAD_ITS ---
INDICATION: SOB -- recent valve repair surgery- [facility] EXAMINATION/TECHNIQUE: X-RAY - XR Chest 2 Views COMPARISON: Prior study dated: 12/19/2022 FINDINGS: LINES/DEVICES: Left-sided dual-chamber cardiac pacer device in stable position. LUNGS: No new infiltrate. No evidence of pleural effusions. MEDIASTINUM AND CARDIOVASCULAR STRUCTURES: Status post median sternotomy since the previous exam. Atrial appendage clip is seen. BONES AND SOFT TISSUES: Unremarkable. RAD/Chest PA and Lateral IMPRESSION: Status post median sternotomy. No new infiltrate is seen. Electronically Signed: Harley Jay MD at 15:55 EDT ,
--- OUTSIDE RECORDS SUMMARY | 2024-02-14 11:17 | XMS RPT_ITS | CCD ---
Author Organization [facility] Team Providers Care Warehouse Operations Associate Name Role Phone Anabelle Ervin Unavailable Birdie Garcia Unavailable Unavailable XEJANI LOPEZ Unavailable Unavailable JANI SERRANO Unavailable Unavailable NO REFERRING Unavailable Unavailable Birdie Garcia Unavailable Unavailable REYNALDO LAN Attending Unavailabl e SCHINEVELYN MCDANIELS Primary Care Unavailable REYNALDO LAN Admitting Unavailhussein e [facility] Referring Unavailabl e AUGMATT, [facility] PHIL Attending Unavailable EVELYN NETTLES Primary Care Unavailable [facility] Referring Unavailabl e AUGOSTINI, [facility] PHIL Attending Unavailable EVELYN NETTLES Primary Care Unavailable PROVIDER, UNKNOWN Attending Unavailable PROVIDER, UNKNOWN Admitting Unavailable CHELSIE SUNSHINE Referring Unavailable Phillip Diamond MD Unavailable [phone] Nils UGALDE, Omer S Unavailable Clifford Wray MDril S Primary Care Provider Moiz Koenig MD Unavailable Phillip DIAMOND Referring Unavailable NILS, OMER S Primary Care Unavailable Phillip DIAMOND Referring Unavailable NILS, OMER S Primary Care Unavailable Phillip DIAMOND Referring Unavailable NILS, OMER S Primary Care Unavailable Phillip DIAMOND Attending Unavailable Phillip DIAMOND Admitting Unavailable Phillip DIAMOND Referring Unavailable MOIZ KOENIG Attending Unavailable NILS, OMER S Primary Care Unavailable Phillip DIAMOND Referring Unavailable NILS, OMER S Primary Care Unavailable NILS, OMER S Primary Care Unavailable KRISTOFER BARRAZA Referring Unavailable NILS, OMER S Primary Care Unavailable SROUBEK, KRISTOFER Referring Unavailable GILLINOV, A TUNDE Referring Unavailable NILS, OMER S Primary Care Unavailable GILLINOV, A TUNDE Referring Unavailable NILS, OMER S Primary Care Unavailable SROUBEK, KRISTOFER Referring Unavailable NILS, OMER S Primary Care Unavailable SROUBEK, KRISTOFER Referring Unavailable NILS, OMER S Primary Care Unavailable GILLINOV, A TUNDE Referring Unavailable NILS, OMER S Primary Care Unavailable NILS, OMER S Primary Care Unavailable GILLINOV, A TUNDE Referring Unavailable NILS, OMER S Primary Care Unavailable GILLINOV, A TUNDE Referring Unavailable GILLINOV, A TUNDE Referring Unavailable NILS, OMER S Primary Care Unavailable GILLINOV, A TUNDE Referring Unavailable GILLINOV, A TUNDE Attending Unavailable NILS, OMER S Primary Care Unavailable GILLINOV, A TUNDE Referring Unavailable NILS, OMER S Primary Care Unavailable NILS, OMER S Primary Care Unavailable GILLINOV, A TUNDE Referring Unavailable NILS, OMER S Primary Care Unavailable LIZ MADSEN Attending Unavailable CYRUS GRIMM Referring Unavailable GILLINOV, A TUNDE Referring Unavailable NILS, OMER S Primary Care Unavailable Allergies Allergy Classification Reported Allergen(s) Allergy Type Date of Onset Reaction(s) Facility (15 sources) hydroCHLOROthiaz jitendra; Translations: [HYDROCHLOROTHIA ZIDE] Drug Allergy 05-06-2021 Other: See Comments [facility] (15 sources) Pollen; Translations: [POLLEN EXTRACTS] Drug Allergy 01-19-2024 Itching [facility] (15 sources) Influenza Virus Vaccines; Translations: [INFLUENZA VIRUS VACCINES] Drug Allergy 01-19-2024 Other: See Comments [facility] Medications Current Medications Medication Drug Class(es) Dates Sig (Normalized) Sig (Original) acetaminophen 325 mg oral tablet (3 sources) Start: 01-29-2024 take 325-650 mg by mouth every four hours as needed acetaminophen (TYLENOL) 325 mg tablet Take 1-2 tablets by mouth every 4 hours as needed for pain. 01/29/2024 Active albuterol 0.83 mg/ml inhalation solution (18 sources) beta2-Adrenergic Agonist Start: 10-30-2023 albuterol (PROVENTIL) 2.5 mg /3 mL (0.083 %) nebulizer solution Inhale as instructed every 4 hours as needed. 10/30/2023 Active Start: 07-12-2010 ALBUTEROL SULF ATE NEBU 90 Mcg/inh as needed ALBUTEROL SULFATE NEBU [id number] Jen Page 120 actuat albuterol 0.1 mg/actuat / ipratropium bromide 0.02 mg/actuat inhalation spray (15 sources) Anticholinergic, beta2-Adrenergic Agonist Start: 12-12-2023 ipratropium 20 mcg-albuterol 100 mcg (COMBIVENT RESPIMAT) 20-100 mcg/actuation inhaler Inhale as instructed every 4 hours as needed. 12/12/2023 Active amiodarone hydrochloride 200 mg oral tablet (15 sources) Antiarrhythmic Start: 02-23-2021 take 1 tablet by mouth once daily amiodarone (PACERONE) 200 mg tablet Take 200 mg by mouth once daily. 02/23/2021 Active amoxicillin 500 mg oral capsule (15 sources) Penicillin-class Antibacterial Start: 01-13-2024 take 4 capsules by mouth every hour amoxicillin (AMOXIL) 500 mg capsule TAKE 4 CAPSULES BY MOUTH ONE HOUR PRIOR TO DENTAL APPOINTMENT. 01/13/2024 Active aspirin 81 mg chewable tablet (3 sources) Platelet Aggregation Inhibitor, Nonsteroidal Anti-inflammatory Drug Start: 01-30-2024 take 1 tablet by mouth once daily aspirin 81 mg chewable tablet Take 1 tablet by mouth once daily. 01/30/2024 Active cholecalciferol 0.05 mg oral tablet (15 sources) Vitamin D Start: 08-15-2023 take 1 tablet by mouth once daily cholecalciferol (VITAMIN D3) 50 mcg (2,000 unit) tablet Take 50 mcg by mouth once daily. 08/15/2023 Active diclofenac sodium 0.01 mg/mg topical gel (15 sources) Nonsteroidal Anti-inflammatory Drug diclofenac (VOLTAREN ARTHRITIS PAIN) 1 % topical gel Apply 2 g to affected area as needed. Active docusate sodium 50 mg / sennosides, group home 8.6 mg oral tablet (3 sources) Start: 01-29-2024 take 1 tablet by mouth every twelve hours as needed senna-docusate (SENNA-S) 8.6-50 mg per tablet Take 1 tablet by mouth two times a day as needed for constipation. 01/29/2024 Active empagliflozin 25 mg oral tablet (15 sources) Sodium-Glucose Cotransporter 2 Inhibitor Start: 11-01-2023 empagliflozin (JARDIANCE) 25 mg tablet Take 12.5 mg by mouth daily with breakfast. 11/01/2023 Active eplerenone 25 mg oral tablet (15 sources) Aldosterone Antagonist Start: 11-01-2023 eplerenone (INSPRA) 25 mg tablet Take 12.5 mg by mouth once daily. 11/01/2023 Active furosemide 20 mg oral tablet (15 sources) Loop Diuretic Start: 09-19-2023 take 1 tablet by mouth once daily furosemide (LASIX) 20 mg tablet Take 20 mg by mouth once daily. 09/19/2023 Active lisinopril 5 mg oral tablet (14 sources) Angiotensin Converting Enzyme Inhibitor Start: 01-30-2024 take 1 tablet by mouth once daily lisinopril (ZESTRIL) 5 mg tablet Indications: Primary hypertension Take 1 tablet by mouth once daily. 30 tablet 1 01/30/2024 Active Start: 08-19-2020 take 1 tablet by thai once daily lisinopril (ZESTRIL) 20 mg tablet Take 20 mg by mouth once daily. 08/19/2020 Suspended 24 hr metoprolol succinate 50 mg extended release oral tablet (15 sources) beta-Adrenergic Ac Start: 10-23-2019 take 1 tablet by mouth once daily metoprolol succinate ER (TOPROL XL) 50 mg 24 hr tablet Take 50 mg by mouth once daily. 10/23/2019 Active oxyCODONE hydrochloride 5 mg oral tablet (1 source) Opioid Agonist Start: 01-29-2024 End: 02-05-2024 take 1 tablet by mouth every six hours as needed for pain oxyCODONE IR (ROXICODONE) 5 mg immediate release tablet Indications: Postoperative pain Take 1 tablet by mouth every 6 hours as needed for pain for up to 7 days. 28 tablet 01/29/2024 02/05/2024 Active polyethylene glycol 3350 42060 mg powder for oral solution (3 sources) Osmotic Laxative Start: 01-29-2024 polyethylene glycol 3350 17 gram packet Take 1 Packet by mouth once daily as needed for constipation. Dissolve dose in 4 - 8 ounces of liquid and take as directed. 01/29/2024 Active rivaroxaban 20 mg oral tablet (15 sources) Factor Xa Inhibitor Start: 08-02-2021 take 1 tablet by mouth once daily rivaroxaban (XARELTO) 20 mg tablet Take 20 mg by mouth once daily. 08/02/2021 Active Completed/Discontinued Medications Medication Drug Class(es) Dates Sig (Normalized) Sig (Original) amLODIPine 5 mg oral tablet (11 sources) Dihydropyridine Calcium Channel Ac Start: 05-06-2021 take 1 tablet by mouth once daily amLODIPine (NORVASC) 5 mg tablet Take 5 mg by mouth once daily. 05/06/2021 Suspended escitalopram 20 mg oral tablet (6 sources) Serotonin Reuptake Inhibitor Start: 05-31-2006 End: 01-19-2024 LEXAPRO 20 MG TAB Take one(1) tablet daily. 0 05/31/2006 01/19/2024 Discontinued (Discontinued by another Health Care Provider) ibuprofen (3 sources) Nonsteroidal Anti-inflammatory Drug IBUPROFEN CAPS prn IBUPROFEN CAPS [id number] Trey Burris Henrique LORazepam 0.5 mg oral tablet (6 sources) Benzodiazepine Start: 07-12-2010 End: 11-30-2012 take 1-2 tablets by mouth once daily as needed ATIVAN 0.5 MG TABS 1-2 tablets by mouth daily as needed LORAZEPAM [id number] Jen Page mupirocin 0.02 mg/mg topical ointment (4 sources) RNA Synthetase Inhibitor Antibacterial Start: 01-22-2024 mupirocin (BACTROBAN) 2 % ointment Apply a small amount in each nostril using a cotton swab twice the day before surgery and once the morning of surgery. 22 g 01/22/2024 Suspended naftifine hydrochloride 0.01 mg/mg topical gel (6 sources) Allylamine Antifungal Start: 05-31-2006 End: 01-19-2024 NAFTIN 1 % TOPICAL GEL Indications: Dermatophytosis of nail Apply to fungal infected dystrophic toenails and to skin around and adjoining the infected nails bid as directed and tolerated. 30gms 3 05/31/2006 01/19/2024 Discontinued (Discontinued by another Health Care Provider) Start: 05-31-2006 End: 01-19-2024 NAFTIN 1 % TOPICAL CREAM Ind ications: Dermatophytosis of groin and perianal area , Dermatophytosis of foot Apply to fungal infection bid (as tolerated) for 1 month or longer as directed until clear, and then can restart bid x2-4 wks prn recurrences 60gms 3 05/31/2006 01/19/2024 Discontinued (Discontinued by another Health Care Provider) naproxen sodium 220 mg oral tablet (6 sources) Nonsteroidal Anti-inflammatory Drug Start: 11-16-2011 End: 11-30-2012 ALEVE 220 MG TABS PRN NAPROXEN SODIUM [id number] Omer Wray MD QUEtiapine 50 mg oral tablet (6 sources) Atypical Antipsychotic End: 11-30-2012 SEROQUEL 50 MG TABS as needed QUETIAPINE FUMARATE [id number] Trey Dayton Duenas selenium sulfide 25 mg/ml medicated shampoo (3 sources) Start: 05-31-2006 End: 01-19-2024 SELENIUM SULFIDE 2.5 % SHAMPOO Indications: Dermatophytosis of groin and perianal area , Dermatophytosis of foot Cleanse the groin, feet, and any other active or at risk areas of fungal infection qoday to qday as directed and tolerated, and can taper to qweek for maintenance tx when clear. stock size 6 05/31/2006 01/19/2024 Discontinued (Discontinued by another Health Care Provider) terbinafine 250 mg oral tablet (3 sources) Allylamine Antifungal Start: 05-31-2006 End: 01-19-2024 take 1 tablet by mouth once daily at mealtime LAMISIL 250 MG TAB Indications: Dermatophytosis of groin and perianal area , Dermatophytosis of foot , Dermatophytosis of nail Take one(1) po qday with food as directed and tolerated. 30(thirty) 1 05/31/2006 01/19/2024 Discontinued (Discontinued by another Health Care Provider) Problems Active Problems Problem Classification Problem Date Documented Date Episodic/Chronic Acute posthemorrhagic anemia (4 sources) Acute posthemorrhagic anemia; Translations: [Acute posthemorrhagic anemia] Onset: 01-25-2024 01-25-2024 Episodic Administrative/social admission (4 sources) Patient encounter status; Translations: [Persons encountering health services in other specified circumstances] Onset: 01-29-2024 01-29-2024 Episodic Anxiety disorders (6 sources) Anxiety; Translations: [Anxiety disorder, unspecified] Onset: 01-23-2024 01-23-2024 Chronic Asthma (3 sources) Unspecified asthma, uncomplicated; Translations: [UNSPECIFIED ASTHMA UNCOM] Onset: 03-07-2016 Chronic Cardiac arrest and ventricular fibrillation (7 sources) Cardiac arrest; Translations: [Cardiac arrest, cause unspecified] Onset: 01-23-2024 01-23-2024 Chronic Cardiac dysrhythmias (20 sources) Atrial fibrillation; Translations: [Atrial paroxysmal tachycardia] Onset: 07-12-2010 07-12-2010 Chronic Coagulation and hemorrhagic disorders (4 sources) Thrombocytopenic disorder; Translations: [Thrombocytopenia, unspecified] Onset: 01-25-2024 01-25-2024 Chronic Complications of surgical procedures or medical care (7 sources) Cardiac insufficiency following cardiac surgery; Translations: [Postprocedural cardiac insufficiency following cardiac surgery] Onset: 01-23-2024 01-23-2024 Chronic Conduction disorders (10 sources) Patient encounter status; Translations: [Encounter for adjustment and management of other part of cardiac pacemaker] Onset: 01-19-2024 12-12-2023 Chronic Congestive heart failure; nonhypertensive (4 sources) Chronic diastolic heart failure; Translations: [Chronic diastolic (congestive) heart failure] Onset: 01-29-2024 01-29-2024 Chronic Diabetes mellitus without complication (6 sources) Metabolic stress hyperglycemia; Translations: [Hyperglycemia, unspecified] Onset: 01-23-2024 01-23-2024 Episodic Diseases of white blood cells (4 sources) Leukocytosis; Translations: [Elevated white blood cell count, unspecified] Onset: 01-25-2024 01-27-2024 Chronic Essential hypertension (5 sources) Hypertensive disorder; Translations: [Essential (primary) hypertension] Onset: 01-25-2024 01-25-2024 Chronic Fluid and electrolyte disorders (4 sources) Hypervolemia; Translations: [Fluid overload, unspecified] Onset: 01-25-2024 01-25-2024 Episodic Heart valve disorders (20 sources) Mitral valve disorder; Translations: [Rheumatic mitral valve disease, unspecified] Onset: 01-19-2024 12-08-2023 Chronic Nonspecific chest pain (1 source) Chest pain, unspecified; Translations: [Chest pain, unspecified type] Onset: 02-06-2024 Episodic Other aftercare (1 source) Surgical follow-up; Translations: [Encounter for follow-up examination after completed treatment for conditions other than malignant neoplasm] 02-06-2024 Episodic Other aftercare (1 source) Encounter for follow-up examination after completed treatment for conditions other than malignant neoplasm; Translations: [Surgery follow-up] Onset: 02-06-2024 Episodic Other circulatory disease (7 sources) Disorder of artery; Translations: [Disorder of arteries and arterioles, unspecified] 12-08-2023 Chronic Other circulatory disease (1 source) Disorder of arteries and arterioles, unspecified; Translations: [Disorder of artery or arteriole (HCC)] Onset: 01-19-2024 Chronic Other circulatory disease (1 source) Personal history of other diseases of the circulatory system; Translations: [S/P Maze operation for atrial fibrillation] Onset: 02-06-2024 Episodic Other lower respiratory disease (1 source) Dyspnea, unspecified; Translations: [Dyspnea, unspecified] Onset: 07-10-2023 Episodic Other lower respiratory disease (17 sources) Dyspnea on exertion; Translations: [Other forms of dyspnea] Onset: 01-19-2024 01-19-2024 Episodic Other lower respiratory disease (1 source) Other forms of dyspnea; Translations: [BALDERAS (dyspnea on exertion)] Onset: 01-19-2024 Episodic Other nervous system disorders (6 sources) Postoperative pain ; Translations: [Other acute postprocedural pain] Onset: 01-23-2024 01-23-2024 Episodic Other nervous system disorders (1 source) Other acute postprocedural pain; Translations: [Postoperative pain] Onset: 01-23-2024 Episodic Other nutritional; endocrine; and metabolic disorders (6 sources) Severe obesity; Translations: [Class 3 severe obesity due to excess calories with body mass index (BMI) of 40.0 to 44.9 in adult] Onset: 01-23-2024 01-23-2024 Chronic Pleurisy; pneumothorax; pulmonary collapse (4 sources) Atelectasis; Translations: [Atelectasis] Onset: 01-26-2024 01-26-2024 Episodic Residual codes; unclassified (1 source) History of repair of mitral valve; Translations: [Other specified postprocedural states] 02-05-2024 Episodic Residual codes; unclassified (1 source) History of tricuspid valve repair; Translations: [Other specified postprocedural states] 02-05-2024 Episodic Residual codes; unclassified (1 source) History of maze procedure for atrial fibrillation; Translations: [Other specified postprocedural states] 02-05-2024 Episodic Residual codes; unclassified (3 sources) Other specified postprocedural states; Translations: [S/P MVR (mitral valve repair)] Onset: 02-06-2024 Episodic Respiratory failure; insufficiency; arrest (adult) (7 sources) Ventilator finding; Translations: [Dependence on respirator [ventilator] status] Onset: 01-23-2024 01-23-2024 Chronic Screening and history of mental health and substance abuse codes (8 sources) Ex-smoker; Translations: [Personal history of nicotine dependence] Onset: 01-25-2024 01-25-2024 Episodic Past or Other Problems Problem Classification Problem Date Documented Da te Episodic/Chronic Allergic reactions (17 sources) Contact dermatitis; Translations: [Unspecified contact dermatitis, unspecified cause] Onset: 06-01-2006 11-02-2023 Episodic Cardiac dysrhythmias (3 sources) Palpitations; Translations: [Palpitations] Onset: 07-12-2010 07-12-2010 Episodic Crushing injury or internal injury (3 sources) Injury to other specified blood vessels of lower extremity; Translations: [Injury to other specified blood vessels of lower extremity] Onset: 07-12-2010 07-12-2010 Episodic Mycoses (20 sources) Tinea cruris; Translations: [Tinea cruris] Onset: 06-01-2006 11-02-2023 Episodic Open wounds of extremities (2 sources) Laceration without foreign body of unspecified finger without damage to nail, initial encounter; Translations: [Laceration without foreign body of unspecified finger without damage to nail, initial encounter] Onset: 09-07-2016 09-26-2016 Episodic Other inflammatory condition of skin (17 sources) Other specified erythematous conditions; Translations: [Other specified erythematous conditions] Onset: 06-01-2006 11-02-2023 Episodic Other lower respiratory disease (5 sources) Dyspnea; Translations: [Shortness of breath] Onset: 07-12-2010 07-12-2010 Episodic Other skin disorders (3 sources) Sebaceous cyst; Translations: [Epidermoid cyst of skin of neck] Onset: 05-30-2011 05-31-2011 Episodic Results Test Name Value Interpretation Reference Range Facility CBC panel Auto (Bld)on 02-05 Erythrocyte distribution width (RBC) [Ratio] 14.6 % Normal 11.5-15.0 [facility] Comment on above: Order Comment: Speci men Type: BLOOD SPECIMENOrdering Facility: [facility] Address: [address] [place] [address] Performed By: #### 5 8410-2 ####[facility] [id number] [place] [address] [place] Hematocrit (Bld) [Volume fraction] 28.8 % Low 39.0-51.0 [facility] Comment on above: Order Comment: Speci men Type: BLOOD SPECIMENOrdering Facility: [facility] Address: [address] [place] [address] Performed By: #### 5 8410-2 ####[facility] [id number] [place] [address] [place] Hemoglobin (Bld) [Mass/Vol] 9.0 g/dL Low 13.0-17.0 [facility] Comment on above: Order Comment: Speci men Type: BLOOD SPECIMENOrdering Facility: [facility] Address: [address] [place] [address] Performed By: #### 5 8410-2 ####[facility] [id number] [place] [address] [place] MCH (RBC) [Entitic mass] 28.0 pg Normal 26.0-34.0 [facility] Comment on above: Order Comment: Speci men Type: BLOOD SPECIMENOrdering Facility: [facility] Address: [address] [place] [address] Performed By: #### 5 8410-2 ####[facility] [id number] [place] [address] [place] MCHC (RBC) [Mass/Vol] 31.3 g/dL Normal 30.5-36.0 [facility] Comment on above: Order Comment: Speci men Type: BLOOD SPECIMENOrdering Facility: [facility] Address: [address] [place] [address] Performed By: #### 5 8410-2 ####[facility] [id number] [place] [address] [place] MCV (RBC) [Entitic vol] 89.7 fL Normal 80.0-100.0 [facility] Comment on above: Order Comment: Speci men Type: BLOOD SPECIMENOrdering Facility: [facility] Address: [address] [place] [address] Performed By: #### 5 8410-2 ####[facility] [id number] [place] [address] [place] Nucleated RBC (Bld) [#/Vol] 10*3/uL Normal <0.01 [facility] Comment on above: Order Comment: Speci men Type: BLOOD SPECIMENOrdering Facility: [facility] Address: [address] [place] [address] Performed By: #### 5 8410-2 ####[facility] [id number] [place] [address] [place] Platelet mean volume (Bld) [Entitic vol] 9.2 fL Normal 9.0-12.7 [facility] Comment on above: Order Comment: Speci men Type: BLOOD SPECIMENOrdering Facility: [facility] Address: [address] [place] [address] Performed By: #### 5 8410-2 ####[facility] [id number] [place] [address] [place] Platelets (Bld) [#/Vol] 403 10*3/uL High 150-400 [facility] Comment on above: Order Comment: Speci men Type: BLOOD SPECIMENOrdering Facility: [facility] Address: [address] [place] [address] Performed By: #### 5 8410-2 ####[facility] [id number] [address] [address] [place] RBC (Bld) [#/Vol] 3.21 10*6/uL Low 4.20-6.00 [facility] Comment on above: Order Comment: Speci men Type: BLOOD SPECIMENOrdering Facility: [facility] Address: [address] [place] [address] Performed By: #### 5 8410-2 ####[facility] [id number] [place] [address] [place] WBC (Bld) [#/Vol] 9.24 10*3/uL Normal 3.70-11.00 [facility] Comment on above: Order Comment: Speci men Type: BLOOD SPECIMENOrdering Facility: [facility] Address: [address] [place] [address] Performed By: #### 5 8410-2 ####[facility] [id number] [place] [address] [place] CNOVon 02-06-2024 CNOV Normal [facility] Comprehensive metabolic 2000 panelon 02-06-2024 Albumin [Mass/Vol] 3.8 g/dL Low 3.9-4.9 [facility] Comment on above: Order Comment: Speci men Type: BLOOD SPECIMENOrdering Facility: [facility] Address: [address] [place] [address] Performed By: #### 2 4323-8 ####[facility] [id number] [place] [address] [place] ALP [Catalytic activity/Vol] 89 U/L Normal 38-113 [facility] Comment on above: Order Comment: Speci men Type: BLOOD SPECIMENOrdering Facility: [facility] Address: [address] [id number] Performed By: #### 2 4323-8 ####[facility] [id number] [place] [address] [place] ALT [Catalytic activity/Vol] 40 U/L Normal 10-54 [facility] Comment on above: Order Comment: Speci men Type: BLOOD SPECIMENOrdering Facility: [facility] Address: [address] [place] [address] Performed By: #### 2 4323-8 ####[facility] [id number] [place] [address] [place] Anion gap [Moles/Vol] 11 mmol/L Normal 8-15 [facility] Comment on above: Order Comment: Speci men Type: BLOOD SPECIMENOrdering Facility: [facility] Address: [address] [place] [address] Performed By: #### 2 4323-8 ####[facility] [id number] [place] [address] [place] AST [Catalytic activity/Vol] 23 U/L Normal 14-40 [facility] Comment on above: Order Comment: Speci men Type: BLOOD SPECIMENOrdering Facility: [facility] Address: [address] [place], [place] [address] Performed By: #### 2 4323-8 ####[facility] [id number] [place] [address] [place] Bilirubin [Mass/Vol] 0.3 mg/dL Normal 0.2-1.3 [facility] Comment on above: Order Comment: Speci men Type: BLOOD SPECIMENOrdering Facility: [facility] Address: [address] [place], [place] [address] Performed By: #### 2 4323-8 ####[facility] [id number] [place] [address] [place] Calcium [Mass/Vol] 9.3 mg/dL Normal 8.5-10.2 [facility] Comment on above: Order Comment: Speci men Type: BLOOD SPECIMENOrdering Facility: [facility] Address: [address] [place] [address] Performed By: #### 2 4323-8 ####[facility] [facility] [id number] [place] [address] [place] Chloride [Moles/Vol] 105 mmol/L Normal 98-107 [facility] Comment on above: Order Comment: Speci men Type: BLOOD SPECIMENOrdering Facility: [facility] Address: [address] [place] [address] Performed By: #### 2 4323-8 ####[facility] [id number] [place] [address] [place] CO2 [Moles/Vol] 24 mmol/L Normal 22-30 [facility] Comment on above: Order Comment: Speci men Type: BLOOD SPECIMENOrdering Facility: [facility] Address: [address] [place] [address] Performed By: #### 2 4323-8 ####[facility] [id number] [place] [address] [place] Creatinine [Mass/Vol] 1.19 mg/dL Normal 0.73-1.22 [facility] Comment on above: Order Comment: Speci men Type: BLOOD SPECIMENOrdering Facility: [facility] Address: [address] [place] [address] Performed By: #### 2 4323-8 ####[facility] [id number] [place] [address] [place] Creatinine and Glomerular filtration rate.predicted panel (S/P/Bld) 67 mL/min/1.73m??? Normal >=60 [facility] Comment on above: Order Comment: Speci men Type: BLOOD SPECIMENOrdering Facility: [facility] Address: [address] [place] [address] Result Comment: Talisha mated Glomerular Filtration Rate (eGFR) is calculated using the 2020 CKD-EPI creatinine equation. This equation utilizes serum creatinine, sex, and age as parameters. The creatinine assay has traceable calibration to isotope dilution-mass spectrometry. Refer to KDIGO guidelines for clinical interpretation. In patients with unstable renal function, e.g. those with acute kidney injury, the eGFR may not accurately reflect actual GFR. Performed By: #### 2 4323-8 ####[facility] [id number] [place] [address] [place] Glucose [Mass/Vol] 97 mg/dL Normal 74-99 [facility] Comment on above: Order Comment: Speci men Type: BLOOD SPECIMENOrdering Facility: [facility] Address: [address] [place] [address] Result Comment: The [place] Diabetes [employer] (ADA) provides guidance for cutoff values for fasting glucose and random glucose. The ADA defines fasting as no caloric intake for at least 8 hours. Fasting plasma glucose results between 100 to 125 mg/dL indicate increased risk for diabetes (prediabetes).Fasting plasma glucose results greater than or equal to 126 mg/dL meet the criteria for diagnosis of diabetes. In the absence of unequivocal hyperglycemia, results should be confirmed by repeat testing. In a patient with classic symptoms of hyperglycemia or hyperglycemic crisis, random plasma glucose results greater than or equal to 200 mg/dL meet the criteria for diagnosis of diabetes.Reference: Standards of Medical Care in Diabetes 2016, [place] [employer]. Diabetes Care. 2016.39(Suppl 1). Performed By: #### 2 4323-8 ####[facility] [id number] [place] [id number] [place] Potassium [Moles/Vol] 4.7 mmol/L Normal 3.7-5.1 [facility] Comment on above: Order Comment: Speci men Type: BLOOD SPECIMENOrdering Facility: [facility] Address: [address] [place] [address] Performed By: #### 2 4323-8 ####[facility] [id number] [place] [address] [place] Protein [Mass/Vol] 6.1 g/dL Low 6.3-8.0 [facility] Comment on above: Order Comment: Speci men Type: BLOOD SPECIMENOrdering Facility: [facility] Address: [address] [place] [address] Performed By: #### 2 4323-8 ####[facility] [id number] [place] [address] [place] Sodium [Moles/Vol] 140 mmol/L Normal 136-144 [facility] Comment on above: Order Comment: Speci men Type: BLOOD SPECIMENOrdering Facility: [facility] Address: [address] [place] [address] Performed By: #### 2 4323-8 ####[facility] [id number] [place] [address] [place] Urea nitrogen [Mass/Vol] 36 mg/dL High 9-24 [facility] Comment on above: Order Comment: Speci men Type: BLOOD SPECIMENOrdering Facility: [facility] Address: [address] [place] [address] Performed By: #### 2 4323-8 ####[facility] [id number] [place] [address] [place] XR CHEST 2V FRONTAL/LATon XR CHEST 2V FRONTAL/LAT Normal [facility] XR Chest PA and Lateralon IMPRESSION: See result. Frozen Yogurt Maker: PSCB Transcribe Date/Time: Feb 06 2024 2:34P Dictated by : CAROLYN ROBERTSON MD This examination was interpreted and the report reviewed and electronically signed by: CAROLYN ROBERTSON MD on Feb 06 2024 2:48PM [facility] DIVISION OF RADIOLOGY * * *Final Report* * * DATE OF EXAM: Feb 06 2024 8:13AM JIX 5291 - XR CHEST 2V FRONTAL/LAT / PROCEDURE REASON: Surgery follow-up * * * * Physician Interpretation * * * * EXAMINATION: CHEST RADIOGRAPH (2 VIEW FRONTAL & LATERAL) CLINICAL HISTORY: Surgery follow-up MQ: XC2_6 EXAM DATE/TIME: 02/06/2024 8:13 AM COMPARISON: 01/28/2024. RESULT: Lines, tubes, and devices: Stable left chest pacemaker with its leads terminating in the right atrium and right ventricle. Status post median sternotomy, mitral and tricuspid valve repair as well as left atrial appendage clip placement. Lungs and pleura: Mild pulmonary edema and mild bibasilar atelectasis. Trace pleural effusions. No pneumothorax. Cardiomediastinal silhouette: Stable cardiomediastinal silhouette. Bones and soft tissues: Degenerative changes are present within the thoracic spine. DIVISION OF RADIOLOGY Provider, [facility] - 02/06/2024 * * *Final Report* * * DATE OF EXAM: Feb 06 2024 8:13AM JIX 5291 - XR CHEST 2V FRONTAL/LAT / PROCEDURE REASON: Surgery follow-up * * * * Physician Interpretation * * * * EXAMINATION: CHEST RADIOGRAPH (2 VIEW FRONTAL & LATERAL) CLINICAL HISTORY: Surgery follow-up MQ: XC2_6 EXAM DATE/TIME: 02/06/2024 8:13 AM COMPARISON: 01/28/2024. RESULT: Lines, tubes, and devices: Stable left chest pacemaker with its leads terminating in the right atrium and right ventricle. Status post median sternotomy, mitral and tricuspid valve repair as well as left atrial appendage clip placement. Lungs and pleura: Mild pulmonary edema and mild bibasilar atelectasis. Trace pleural effusions. No pneumothorax. Cardiomediastinal silhouette: Stable cardiomediastinal silhouette. Bones and soft tissues: Degenerative changes are present within the thoracic spine. IMPRESSION IMPRESSION: See result. Frozen Yogurt Maker: PSCB Transcribe Date/Time: Feb 06 2024 2:34P Dictated by : CAROLYN ROBERTSON MD This examination was interpreted and the report reviewed and electronically signed by: CAROLYN ROBERTSON MD on Feb 06 2024 2:48PM EST [facility] Radiology Study observation (narrative) [facility] XR Chest PA and LateralOrder ed By: Ccf Provider on 02-06-2024 [facility] CNPNon 01-31-2024 CNPN Normal [facility] ALLIED HEALTHon 01-29-2024 ALLIED HEALTH Normal [facility] CASE MANAGEMon 01-29-2024 CASE MANAGEM Normal [facility] CBC panel Auto (Bld)on 01-28 Erythrocyte distribution width (RBC) [Ratio] 13.6 % Normal 11.5-15.0 [facility] Comment on above: Order Comment: Speci men Type: BLOOD SPECIMENOrdering Facility: [facility] Address: [address] [place] [address] Performed By: #### 5 8410-2 ####[facility] [id number] [place] [address] [place] Hematocrit (Bld) [Volume fraction] 31.2 % Low 39.0-51.0 [facility] Comment on above: Order Comment: Speci men Type: BLOOD SPECIMENOrdering Facility: [facility] Address: [address] [place] [address] Performed By: #### 5 8410-2 ####[facility] [id number] [place] [address] [place] Hemoglobin (Bld) [Mass/Vol] 9.9 g/dL Low 13.0-17.0 [facility] Comment on above: Order Comment: Speci men Type: BLOOD SPECIMENOrdering Facility: [facility] Address: [address] [place] [address] Performed By: #### 5 8410-2 ####[facility] [id number] [place] [address] [place] MCH (RBC) [Entitic mass] 27.7 pg Normal 26.0-34.0 [facility] Comment on above: Order Comment: Speci men Type: BLOOD SPECIMENOrdering Facility: [facility] Address: [address] [place] [address] Performed By: #### 5 8410-2 ####[facility] [id number] [place] [address] [place] MCHC (RBC) [Mass/Vol] 31.7 g/dL Normal 30.5-36.0 [facility] Comment on above: Order Comment: Speci men Type: BLOOD SPECIMENOrdering Facility: [facility] Address: [address] [place] [address] Performed By: #### 5 8410-2 ####[facility] [id number] [place] [address] [place] MCV (RBC) [Entitic vol] 87.2 fL Normal 80.0-100.0 [facility] Comment on above: Order Comment: Speci men Type: BLOOD SPECIMENOrdering Facility: [facility] Address: [address] [place] [address] Performed By: #### 5 8410-2 ####[facility] [id number] [place] [address] [place] Nucleated RBC (Bld) [#/Vol] 10*3/uL Normal <0.01 [facility] Comment on above: Order Comment: Speci men Type: BLOOD SPECIMENOrdering Facility: [facility] Address: [address] [place] [address] Performed By: #### 5 8410-2 ####[facility] [id number] [place] [address] [place] Platelet mean volume (Bld) [Entitic vol] 10.0 fL Normal 9.0-12.7 [facility] Comment on above: Order Comment: Speci men Type: BLOOD SPECIMENOrdering Facility: [facility] Address: [address] [place] [address] Performed By: #### 5 8410-2 ####[facility] [id number] [place] [address] [place] Platelets (Bld) [#/Vol] 191 10*3/uL Normal 150-400 [facility] Comment on above: Order Comment: Speci men Type: BLOOD SPECIMENOrdering Facility: [facility] Address: [address] [place] [address] Performed By: #### 5 8410-2 ####[facility] [id number] [place] [address] [place] RBC (Bld) [#/Vol] 3.58 10*6/uL Low 4.20-6.00 [facility] Comment on above: Order Comment: Speci men Type: BLOOD SPECIMENOrdering Facility: [facility] Address: [address] [place] [address] Performed By: #### 5 8410-2 ####[facility] [id number] [place] [address] [place] WBC (Bld) [#/Vol] 7.60 10*3/uL Normal 3.70-11.00 [facility] Comment on above: Order Comment: Speci men Type: BLOOD SPECIMENOrdering Facility: [facility] Address: [address] [place] [address] Performed By: #### 5 8410-2 ####[facility] [id number] [place] [id number] [place] CNDSon 01-29-2024 CNDS Normal [facility] Comprehensive metabolic 2000 panelon 01-29-2024 Albumin [Mass/Vol] 3.6 g/dL Low 3.9-4.9 [facility] Comment on above: Order Comment: Speci men Type: BLOOD SPECIMENOrdering Facility: [facility] Address: [address] [place] [address] Performed By: #### 2 4323-8 ####[facility] [id number] [place] [id number] [place] ALP [Catalytic activity/Vol] 78 U/L Normal 38-113 [facility] Comment on above: Order Comment: Speci men Type: BLOOD SPECIMENOrdering Facility: [facility] Address: [address] [place] [id number] Performed By: #### 2 4323-8 ####[facility] [id number] [place] [address] [place] ALT [Catalytic activity/Vol] 27 U/L Normal 10-54 [facility] Comment on above: Order Comment: Speci men Type: BLOOD SPECIMENOrdering Facility: [facility] Address: [address] [place] [address] Performed By: #### 2 4323-8 ####[facility] [id number] [place] [address] [place] Anion gap [Moles/Vol] 10 mmol/L Normal 8-15 [facility] Comment on above: Order Comment: Speci men Type: BLOOD SPECIMENOrdering Facility: [facility] Address: [address] [place] [address] Performed By: #### 2 4323-8 ####[facility] [id number] [place] [address] [place] AST [Catalytic activity/Vol] 27 U/L Normal 14-40 [facility] Comment on above: Order Comment: Speci men Type: BLOOD SPECIMENOrdering Facility: [facility] Address: [address] [place], [place] [address] Performed By: #### 2 4323-8 ####[facility] [id number] [place] [id number] [place] Bilirubin [Mass/Vol] 0.7 mg/dL Normal 0.2-1.3 [facility] Comment on above: Order Comment: Speci men Type: BLOOD SPECIMENOrdering Facility: [facility] Address: [address] [place], [place] [address] Performed By: #### 2 4323-8 ####[facility] [id number] [place] [address] [place] Calcium [Mass/Vol] 9.1 mg/dL Normal 8.5-10.2 [facility] Comment on above: Order Comment: Speci men Type: BLOOD SPECIMENOrdering Facility: [facility] Address: [address] [place] [address] Performed By: #### 2 4323-8 ####[facility] [id number] [place] [address] [place] Chloride [Moles/Vol] 94 mmol/L Low 98-107 [facility] Comment on above: Order Comment: Speci men Type: BLOOD SPECIMENOrdering Facility: [facility] Address: [address] [place] [address] Performed By: #### 2 4323-8 ####[facility] [id number] [place] [address] [place] CO2 [Moles/Vol] 32 mmol/L High 22-30 [facility] Comment on above: Order Comment: Speci men Type: BLOOD SPECIMENOrdering Facility: [facility] Address: [address] [place] [address] Performed By: #### 2 4323-8 ####[facility] [id number] [place] [address] [place] Creatinine [Mass/Vol] 0.95 mg/dL Normal 0.73-1.22 [facility] Comment on above: Order Comment: Speci men Type: BLOOD SPECIMENOrdering Facility: [facility] Address: [address] [place] [address] Performed By: #### 2 4323-8 ####[facility] [id number] [place] [address] [place] Creatinine and Glomerular filtration rate.predicted panel (S/P/Bld) 88 mL/min/1.73m??? Normal >=60 [facility] Comment on above: Order Comment: Jeison parry Type: BLOOD SPECIMENOrdering Facility: [facility] Address: [address] [place] [address] Result Comment: Talisha mated Glomerular Filtration Rate (eGFR) is calculated using the 2020 CKD-EPI creatinine equation. This equation utilizes serum creatinine, sex, and age as parameters. The creatinine assay has traceable calibration to isotope dilution-mass spectrometry. Refer to KDIGO guidelines for clinical interpretation. In patients with unstable renal function, e.g. those with acute kidney injury, the eGFR may not accurately reflect actual GFR. Performed By: #### 2 4323-8 ####[facility] [id number] [place] [address] [place] Glucose [Mass/Vol] 98 mg/dL Normal 74-99 [facility] Comment on above: Order Comment: Jeison parry Type: BLOOD SPECIMENOrdering Facility: [facility] Address: [address] [place] [address] Result Comment: The [place] Diabetes Association (ADA) provides guidance for cutoff values for fasting glucose and random glucose. The ADA defines fasting as no caloric intake for at least 8 hours. Fasting plasma glucose results between 100 to 125 mg/dL indicate increased risk for diabetes (prediabetes).Fasting plasma glucose results greater than or equal to 126 mg/dL meet the criteria for diagnosis of diabetes. In the absence of unequivocal hyperglycemia, results should be confirmed by repeat testing. In a patient with classic symptoms of hyperglycemia or hyperglycemic crisis, random plasma glucose results greater than or equal to 200 mg/dL meet the criteria for diagnosis of diabetes.Reference: Standards of Medical Care in Diabetes 2016, [place] [employer]. Diabetes Care. 2016.39(Suppl 1). Performed By: #### 2 4323-8 ####[facility] [id number] [place] [address] [place] Potassium [Moles/Vol] 3.4 mmol/L Low 3.7-5.1 [facility] Comment on above: Order Comment: Jeison parry Type: BLOOD SPECIMENOrdering Facility: [facility] Address: [address] [place] [address] Performed By: #### 2 4323-8 ####[facility] [id number] [place] [address] [place] Protein [Mass/Vol] 6.4 g/dL Normal 6.3-8.0 [facility] Comment on above: Order Comment: Speci men Type: BLOOD SPECIMENOrdering Facility: [facility] Address: [address] [place] [address] Performed By: #### 2 4323-8 ####[facility] [id number] [place] [address] [place] Sodium [Moles/Vol] 136 mmol/L Normal 136-144 [facility] Comment on above: Order Comment: Speci men Type: BLOOD SPECIMENOrdering Facility: [facility] Address: [address] [place] [address] Performed By: #### 2 4323-8 ####[facility] [id number] [place] [address] [place] Urea nitrogen [Mass/Vol] 28 mg/dL High 9-24 [facility] Comment on above: Order Comment: Speci men Type: BLOOD SPECIMENOrdering Facility: [facility] Address: [address] [place] [address] Performed By: #### 2 4323-8 ####[facility] [id number] [place] [id number] [place] THERAPY NTon 01-29-2024 THERAPY NT Normal [facility] THERAPY NT Normal [facility] CBC panel Auto (Bld)on 01-27 Erythrocyte distribution width (RBC) [Ratio] 13.9 % Normal 11.5-15.0 [facility] Comment on above: Order Comment: Speci men Type: BLOOD SPECIMENOrdering Facility: [facility] Address: [address] [place] [address] Performed By: #### 5 8410-2 ####[facility] [id number] [place] [address] [place] Hematocrit (Bld) [Volume fraction] 31.1 % Low 39.0-51.0 [facility] Comment on above: Order Comment: Speci men Type: BLOOD SPECIMENOrdering Facility: [facility] Address: [address] [place] [address] Performed By: #### 5 8410-2 ####[facility] [id number] [place] [address] [place] Hemoglobin (Bld) [Mass/Vol] 9.9 g/dL Low 13.0-17.0 [facility] Comment on above: Order Comment: Speci men Type: BLOOD SPECIMENOrdering Facility: [facility] Address: [address] [place] [address] Performed By: #### 5 8410-2 ####[facility] [id number] [place] [address] [place] MCH (RBC) [Entitic mass] 27.7 pg Normal 26.0-34.0 [facility] Comment on above: Order Comment: Speci men Type: BLOOD SPECIMENOrdering Facility: [facility] Address: [address] [place] [address] Performed By: #### 5 8410-2 ####[facility] [id number] [place] [address] [place] MCHC (RBC) [Mass/Vol] 31.8 g/dL Normal 30.5-36.0 [facility] Comment on above: Order Comment: Speci men Type: BLOOD SPECIMENOrdering Facility: [facility] Address: [address] [place] [address] Performed By: #### 5 8410-2 ####[facility] [id number] [place] [address] [place] MCV (RBC) [Entitic vol] 87.1 fL Normal 80.0-100.0 [facility] Comment on above: Order Comment: Speci men Type: BLOOD SPECIMENOrdering Facility: [facility] Address: [address] [place] [address] Performed By: #### 5 8410-2 ####[facility] [id number] [place] [address] [place] Nucleated RBC (Bld) [#/Vol] 10*3/uL Normal <0.01 [facility] Comment on above: Order Comment: Speci men Type: BLOOD SPECIMENOrdering Facility: [facility] Address: [address] [place] [address] Performed By: #### 5 8410-2 ####[facility] [id number] [place] [address] [place] Platelet mean volume (Bld) [Entitic vol] 10.3 fL Normal 9.0-12.7 [facility] Comment on above: Order Comment: Speci men Type: BLOOD SPECIMENOrdering Facility: [facility] Address: [address] [place] [address] Performed By: #### 5 8410-2 ####[facility] [id number] [place] [address] [place] Platelets (Bld) [#/Vol] 166 10*3/uL Normal 150-400 [facility] Comment on above: Order Comment: Speci men Type: BLOOD SPECIMENOrdering Facility: [facility] Address: [address] [place] [address] Performed By: #### 5 8410-2 ####[facility] [id number] [place] [address] [place] RBC (Bld) [#/Vol] 3.57 10*6/uL Low 4.20-6.00 [facility] Comment on above: Order Comment: Speci men Type: BLOOD SPECIMENOrdering Facility: [facility] Address: [address] [place] [address] Performed By: #### 5 8410-2 ####[facility] [id number] [place] [address] [place] WBC (Bld) [#/Vol] 8.32 10*3/uL Normal 3.70-11.00 [facility] Comment on above: Order Comment: Speci men Type: BLOOD SPECIMENOrdering Facility: [facility] Address: [address] [place] [address] Performed By: #### 5 8410-2 ####[facility] [id number] [place] [address] [place] [facility] Comprehensive metabolic 2000 panelon 01-28-2024 Albumin [Mass/Vol] 3.8 g/dL Low 3.9-4.9 [facility] Comment on above: Order Comment: Speci men Type: BLOOD SPECIMENOrdering Facility: [facility] Address: [address] [place] [address] Performed By: #### 2 4323-8 ####[facility] [id number] [place] [address] [place] ALP [Catalytic activity/Vol] 83 U/L Normal 38-113 [facility] Comment on above: Order Comment: Speci men Type: BLOOD SPECIMENOrdering Facility: [facility] Address: [address] [place] [address] Performed By: #### 2 4323-8 ####[facility] [id number] [place] [id number] [place] ALT [Catalytic activity/Vol] 22 U/L Normal 10-54 [facility] Comment on above: Order Comment: Speci men Type: BLOOD SPECIMENOrdering Facility: [facility] Address: [address] [place] [address] Performed By: #### 2 4323-8 ####[facility] [id number] [place] [address] [place] Anion gap [Moles/Vol] 12 mmol/L Normal 8-15 [facility] Comment on above: Order Comment: Speci men Type: BLOOD SPECIMENOrdering Facility: [facility] Address: [address] [place] [address] Performed By: #### 2 4323-8 ####[facility] [id number] [place] [address] [place] AST [Catalytic activity/Vol] 34 U/L Normal 14-40 [facility] Comment on above: Order Comment: Speci men Type: BLOOD SPECIMENOrdering Facility: [facility] Address: [address] [place] [address] Performed By: #### 2 4323-8 ####[facility] [id number] [place] [address] [place] Bilirubin [Mass/Vol] 0.6 mg/dL Normal 0.2-1.3 [facility] Comment on above: Order Comment: Speci men Type: BLOOD SPECIMENOrdering Facility: [facility] Address: [address] [place] [address] Performed By: #### 2 4323-8 ####[facility] [id number] [place] [address] [place] Calcium [Mass/Vol] 9.1 mg/dL Normal 8.5-10.2 [facility] Comment on above: Order Comment: Speci men Type: BLOOD SPECIMENOrdering Facility: [facility] Address: [address] [place] [address] Performed By: #### 2 4323-8 ####[facility] [id number] [place] [address] [place] Chloride [Moles/Vol] 95 mmol/L Low 98-107 [facility] Comment on above: Order Comment: Speci men Type: BLOOD SPECIMENOrdering Facility: [facility] Address: [address] [place] [address] Performed By: #### 2 4323-8 ####[facility] [id number] [place] [address] [place] CO2 [Moles/Vol] 29 mmol/L Normal 22-30 [facility] Comment on above: Order Comment: Speci men Type: BLOOD SPECIMENOrdering Facility: [facility] Address: [address] [place] [address] Performed By: #### 2 4323-8 ####[facility] [id number] [place] [address] [place] Creatinine [Mass/Vol] 0.96 mg/dL Normal 0.73-1.22 [facility] Comment on above: Order Comment: Speci men Type: BLOOD SPECIMENOrdering Facility: [facility] Address: [address] [place] [address] Performed By: #### 2 4323-8 ####[facility] [id number] [address] Creatinine and Glomerular filtration rate.predicted panel (S/P/Bld) 87 mL/min/1.73m??? Normal >=60 [facility] Comment on above: Order Comment: Speci men Type: BLOOD SPECIMENOrdering Facility: [facility] Address: [address] [place] [address] Result Comment: Talisha mated Glomerular Filtration Rate (eGFR) is calculated using the 2020 CKD-EPI creatinine equation. This equation utilizes serum creatinine, sex, and age as parameters. The creatinine assay has traceable calibration to isotope dilution-mass spectrometry. Refer to KDIGO guidelines for clinical interpretation. In patients with unstable renal function, e.g. those with acute kidney injury, the eGFR may not accurately reflect actual GFR. Performed By: #### 2 4323-8 ####[facility] [id number] [place] [address] [place] Glucose [Mass/Vol] 91 mg/dL Normal 74-99 [facility] Comment on above: Order Comment: Speci men Type: BLOOD SPECIMENOrdering Facility: [facility] Address: [address] [place] [address] Result Comment: The [place] [employer] (ADA) provides guidance for cutoff values for fasting glucose and random glucose. The ADA defines fasting as no caloric intake for at least 8 hours. Fasting plasma glucose results between 100 to 125 mg/dL indicate increased risk for diabetes (prediabetes).Fasting plasma glucose results greater than or equal to 126 mg/dL meet the criteria for diagnosis of diabetes. In the absence of unequivocal hyperglycemia, results should be confirmed by repeat testing. In a patient with classic symptoms of hyperglycemia or hyperglycemic crisis, random plasma glucose results greater than or equal to 200 mg/dL meet the criteria for diagnosis of diabetes.Reference: Standards of Medical Care in Diabetes 2016, [place] [employer]. Diabetes Care. 2016.39(Suppl 1). Performed By: #### 2 4323-8 ####[facility] [id number] [place] [address] [place] Potassium [Moles/Vol] 3.8 mmol/L Normal 3.7-5.1 [facility] Comment on above: Order Comment: Tatyanai men Type: BLOOD SPECIMENOrdering Facility: [facility] Address: [address] [place] [address] Performed By: #### 2 4323-8 ####[facility] [id number] [place] [address] [place] Protein [Mass/Vol] 6.5 g/dL Normal 6.3-8.0 [facility] Comment on above: Order Comment: Speci men Type: BLOOD SPECIMENOrdering Facility: [facility] Address: [address] [place] [address] Performed By: #### 2 4323-8 ####[facility] [id number] [place] [address] [place] Sodium [Moles/Vol] 136 mmol/L Normal 136-144 [facility] Comment on above: Order Comment: Speci men Type: BLOOD SPECIMENOrdering Facility: [facility] Address: [address] [place] [address] Performed By: #### 2 4323-8 ####[facility] [id number] [place] [address] [place] Urea nitrogen [Mass/Vol] 32 mg/dL High 9-24 [facility] Comment on above: Order Comment: Speci men Type: BLOOD SPECIMENOrdering Facility: [facility] Address: [address] [place] [address] Performed By: #### 2 4323-8 ####[facility] [id number] [place] [address] [place] ECG COMPLETEon 01-28-2024 ECG COMPLETE Normal [facility] NURSING PROGon 01-28-2024 NURSING PROG Normal [facility] NURSING PROG Normal [facility] NURSING PROG Normal [facility] NURSING PROG Normal [facility] NURSING PROG Normal [facility] XR CHEST 2V FRONTAL/LATon XR CHEST 2V FRONTAL/LAT Normal [facility] ARTERIAL BLOOD GASESon 01-26 Base excess Calc (Bld) [Moles/Vol] 7 mmol/L High 0-2 [facility] Comment on above: Order Comment: Speci men Type: ARTERIAL BLOOD SPECIMENOrdering Facility: [facility] Address: [address] [place] [address] Performed By: #### A LLBG ####[facility] [id number] [place] [address] [place] Body temperature 98.6 [degF] Normal [facility] Comment on above: Order Comment: Speci men Type: ARTERIAL BLOOD SPECIMENOrdering Facility: [facility] Address: [address] [place] [address] Performed By: #### A LLBG ####[facility] [id number] [place] [address] [place] Calcium.ionized (Bld) [Mass/Vol] 1.14 mmol/L Normal 1.08-1.30 [facility] Comment on above: Order Comment: Speci men Type: ARTERIAL BLOOD SPECIMENOrdering Facility: [facility] Address: [address] [place] [address] Performed By: #### A LLBG ####[facility] [id number] [place] [address] [place] Calcium.ionized adjusted to pH 7.4 (BldA) [Moles/Vol] 1.18 mmol/L Normal 1.08-1.30 [facility] Comment on above: Order Comment: Speci men Type: ARTERIAL BLOOD SPECIMENOrdering Facility: [facility] Address: [address] [place] [address] Performed By: #### A LLBG ####[facility] [id number] [place] [address] [place] Carboxyhemoglobin (BldA) [Mass fraction] 2.2 % High 0.0-2.0 [facility] Comment on above: Order Comment: Speci men Type: ARTERIAL BLOOD SPECIMENOrdering Facility: [facility] Address: [address] [place] [address] Result Comment: Carb oxyhemoglobin Reference Range for Smokers: 2.0-8.0% Performed By: #### A LLBG ####[facility] [id number] [place] [address] [place] CO2 (Bld) [Partial pressure] 44 mm Hg Normal 36-46 [facility] Comment on above: Order Comment: Speci men Type: ARTERIAL BLOOD SPECIMENOrdering Facility: [facility] Address: [address] [place] [address] Performed By: #### A LLBG ####[facility] [id number] [place] [address] [place] Glucose [Mass/Vol] 103 mg/dL Normal 60-105 [facility] Comment on above: Order Comment: Speci men Type: ARTERIAL BLOOD SPECIMENOrdering Facility: [facility] Address: [address] [place] [address] Performed By: #### A LLBG ####[facility] [id number] [place] [address] [place] HCO3 (Bld) [Moles/Vol] 31 mmol/L High 22-26 [facility] Comment on above: Order Comment: Speci men Type: ARTERIAL BLOOD SPECIMENOrdering Facility: [facility] Address: [address] [place] [address] Performed By: #### A LLBG ####[facility] [id number] [place] [address] [place] Hematocrit (Bld) [Volume fraction] 30.4 % Low 39.0-51.0 [facility] Comment on above: Order Comment: Speci men Type: ARTERIAL BLOOD SPECIMENOrdering Facility: [facility] Address: [address] [place] [address] Performed By: #### A LLBG ####[facility] [id number] [place] [address] [place] Hemoglobin (Bld) [Mass/Vol] 9.8 g/dL Low 13.0-17.0 [facility] Comment on above: Order Comment: Speci men Type: ARTERIAL BLOOD SPECIMENOrdering Facility: [facility] Address: [address] [place] [address] Performed By: #### A LLBG ####[facility] [id number] [place] [address] [place] Lactate [Moles/Vol] 0.6 mmol/L Normal 0.5-2.2 [facility] Comment on above: Order Comment: Speci men Type: ARTERIAL BLOOD SPECIMENOrdering Facility: [facility] Address: [address] [place] [id number] Performed By: #### A LLBG ####[facility] [id number] [place] [address] [place] LITERS 2 Liters/min Normal [facility] Comment on above: Order Comment: Speci men Type: ARTERIAL BLOOD SPECIMENOrdering Facility: [facility] Address: [address] [place] [address] Performed By: #### A LLBG ####[facility] [id number] [place] [address] [place] Methemoglobin (Bld) [Mass fraction] 0.5 % Normal 0.0-1.5 [facility] Comment on above: Order Comment: Speci men Type: ARTERIAL BLOOD SPECIMENOrdering Facility: [facility] Address: [address] [place] [address] Performed By: #### A LLBG ####[facility] [id number] [place] [address] [place] O2 THERAPY NC = Nasal Cannula Normal [facility] Comment on above: Order Comment: Speci men Type: ARTERIAL BLOOD SPECIMENOrdering Facility: [facility] Address: [address] [place], [place] [address] Performed By: #### A LLBG ####[facility] [id number] [place] [address] [place] Oxygen (Bld) [Partial pressure] 185 mm Hg High 85-95 [facility] Comment on above: Order Comment: Speci men Type: ARTERIAL BLOOD SPECIMENOrdering Facility: [facility] Address: [address] [place] [address] Performed By: #### A LLBG ####[facility] [id number] [place] [id number] [place] Oxyhemoglobin (BldA) [Mass fraction] 97 % Normal 95-98 [facility] Comment on above: Order Comment: Speci men Type: ARTERIAL BLOOD SPECIMENOrdering Facility: [facility] Address: [address] [place] [address] Performed By: #### A LLBG ####[facility] [id number] [place] [address] [place] pH (Bld) 7.46 [pH] High 7.35-7.45 [facility] Comment on above: Order Comment: Speci men Type: ARTERIAL BLOOD SPECIMENOrdering Facility: [facility] Address: [address] [place] [address] Performed By: #### A LLBG ####[facility] [id number] [place] [address] [place] Potassium [Moles/Vol] 3.9 mmol/L Normal 3.5-5.0 [facility] Comment on above: Order Comment: Speci men Type: ARTERIAL BLOOD SPECIMENOrdering Facility: [facility] Address: [address] [place] [address] Performed By: #### A LLBG ####[facility] [id number] [place] [address] [place] Sodium [Moles/Vol] 134 mmol/L Low 136-144 [facility] Comment on above: Order Comment: Speci men Type: ARTERIAL BLOOD SPECIMENOrdering Facility: [facility] Address: [address] [place] [address] Performed By: #### A LLBG ####[facility] [id number] [place] [address] [place] Base excess Calc (Bld) [Moles/Vol] 6 mmol/L High 0-2 [facility] Comment on above: Order Comment: Speci men Type: ARTERIAL BLOOD SPECIMENOrdering Facility: [facility] Address: [address] [place] [address] Performed By: #### A LLBG ####[facility] [id number] [place] [address] [place] Body temperature 98.6 [degF] Normal [facility] Comment on above: Order Comment: Speci men Type: ARTERIAL BLOOD SPECIMENOrdering Facility: [facility] Address: [address] [place] [address] Performed By: #### A LLBG ####[facility] [id number] [place] [address] [place] Calcium.ionized (Bld) [Mass/Vol] 1.17 mmol/L Normal 1.08-1.30 [facility] Comment on above: Order Comment: Speci men Type: ARTERIAL BLOOD SPECIMENOrdering Facility: [facility] Address: [address] [place] [address] Performed By: #### A LLBG ####[facility] [id number] [place] [address] [place] Calcium.ionized adjusted to pH 7.4 (BldA) [Moles/Vol] 1.16 mmol/L Normal 1.08-1.30 [facility] Comment on above: Order Comment: Speci men Type: ARTERIAL BLOOD SPECIMENOrdering Facility: [facility] Address: [address] [place] [address] Performed By: #### A LLBG ####[facility] [id number] [place] [address] [place] Carboxyhemoglobin (BldA) [Mass fraction] 2.2 % High 0.0-2.0 [facility] Comment on above: Order Comment: Speci men Type: ARTERIAL BLOOD SPECIMENOrdering Facility: [facility] Address: [address] [place] [address] Result Comment: Carb oxyhemoglobin Reference Range for Smokers: 2.0-8.0% Performed By: #### A LLBG ####[facility] [id number] [place] [address] [place] CO2 (Bld) [Partial pressure] 54 mm Hg High 36-46 [facility] Comment on above: Order Comment: Speci men Type: ARTERIAL BLOOD SPECIMENOrdering Facility: [facility] Address: [address] [place] [address] Performed By: #### A LLBG ####[facility] [id number] [place] [address] [place] Glucose [Mass/Vol] 102 mg/dL Normal 60-105 [facility] Comment on above: Order Comment: Speci men Type: ARTERIAL BLOOD SPECIMENOrdering Facility: [facility] Address: [address] [place] [address] Performed By: #### A LLBG ####[facility] [id number] [place] [address] [place] HCO3 (Bld) [Moles/Vol] 31 mmol/L High 22-26 [facility] Comment on above: Order Comment: Speci men Type: ARTERIAL BLOOD SPECIMENOrdering Facility: [facility] Address: [address] [place] [address] Performed By: #### A LLBG ####[facility] [id number] [place] [address] [place] Hematocrit (Bld) [Volume fraction] 29.8 % Low 39.0-51.0 [facility] Comment on above: Order Comment: Speci men Type: ARTERIAL BLOOD SPECIMENOrdering Facility: [facility] Address: [address] [place] [address] Performed By: #### A LLBG ####[facility] [id number] [place] [address] [place] Hemoglobin (Bld) [Mass/Vol] 9.6 g/dL Low 13.0-17.0 [facility] Comment on above: Order Comment: Speci men Type: ARTERIAL BLOOD SPECIMENOrdering Facility: [facility] Address: [address] [place] [address] Performed By: #### A LLBG ####[facility] [id number] [place] [address] [place] Lactate [Moles/Vol] 0.6 mmol/L Normal 0.5-2.2 [facility] Comment on above: Order Comment: Speci men Type: ARTERIAL BLOOD SPECIMENOrdering Facility: [facility] Address: [address] [place] [address] Performed By: #### A LLBG ####[facility] [id number] [place] [address] [place] LITERS 4 Liters/min Normal [facility] Comment on above: Order Comment: Speci men Type: ARTERIAL BLOOD SPECIMENOrdering Facility: [facility] Address: [address] [place] [address] Performed By: #### A LLBG ####[facility] [id number] [place] [address] [place] Methemoglobin (Bld) [Mass fraction] 0.9 % Normal 0.0-1.5 [facility] Comment on above: Order Comment: Speci men Type: ARTERIAL BLOOD SPECIMENOrdering Facility: [facility] Address: [address] [place] [address] Performed By: #### A LLBG ####[facility] [id number] [place] [address] [place] O2 THERAPY Positive Normal [facility] Comment on above: Order Comment: Speci men Type: ARTERIAL BLOOD SPECIMENOrdering Facility: [facility] Address: [address] [place] [address] Performed By: #### A LLBG ####[facility] [id number] [place] [address] [place] Oxygen (Bld) [Partial pressure] 142 mm Hg High 85-95 [facility] Comment on above: Order Comment: Speci men Type: ARTERIAL BLOOD SPECIMENOrdering Facility: [facility] Address: [address] [place] [address] Performed By: #### A LLBG ####[facility] [id number] [place] [address] [place] Oxyhemoglobin (BldA) [Mass fraction] 96 % Normal 95-98 [facility] Comment on above: Order Comment: Speci men Type: ARTERIAL BLOOD SPECIMENOrdering Facility: [facility] Address: [address] [place] [address] Performed By: #### A LLBG ####[facility] [id number] [place] [address] [place] pH (Bld) 7.39 [pH] Normal 7.35-7.45 [facility] Comment on above: Order Comment: Speci men Type: ARTERIAL BLOOD SPECIMENOrdering Facility: [facility] Address: [address] [place] [address] Performed By: #### A LLBG ####[facility] [id number] [place] [address] [place] Potassium [Moles/Vol] 4.1 mmol/L Normal 3.5-5.0 [facility] Comment on above: Order Comment: Speci men Type: ARTERIAL BLOOD SPECIMENOrdering Facility: [facility] Address: [address] [place] [address] Performed By: #### A LLBG ####[facility] [id number] [place] [address] [place] Sodium [Moles/Vol] 136 mmol/L Normal 136-144 [facility] Comment on above: Order Comment: Speci men Type: ARTERIAL BLOOD SPECIMENOrdering Facility: [facility] Address: [address] [place] [address] Performed By: #### A LLBG ####[facility] [id number] [place] [address] [place] Base excess Calc (Bld) [Moles/Vol] 6 mmol/L High 0-2 [facility] Comment on above: Order Comment: Speci men Type: ARTERIAL BLOOD SPECIMENOrdering Facility: [facility] Address: [address] [place] [address] Performed By: #### A LLBG ####[facility] [id number] [place] [address] [place] Body temperature 98.6 [degF] Normal [facility] Comment on above: Order Comment: Speci men Type: ARTERIAL BLOOD SPECIMENOrdering Facility: [facility] Address: [address] [place] [address] Performed By: #### A LLBG ####[facility] [id number] [place] [address] [place] Calcium.ionized (Bld) [Mass/Vol] 1.17 mmol/L Normal 1.08-1.30 [facility] Comment on above: Order Comment: Speci men Type: ARTERIAL BLOOD SPECIMENOrdering Facility: [facility] Address: [address] [place] [address] Performed By: #### A LLBG ####[facility] [id number] [place] [address] [place] Calcium.ionized adjusted to pH 7.4 (BldA) [Moles/Vol] 1.16 mmol/L Normal 1.08-1.30 [facility] Comment on above: Order Comment: Speci men Type: ARTERIAL BLOOD SPECIMENOrdering Facility: [facility] Address: [address] [place] [address] Performed By: #### A LLBG ####[facility] [id number] [place] [address] [place] Carboxyhemoglobin (BldA) [Mass fraction] 2.3 % High 0.0-2.0 [facility] Comment on above: Order Comment: Speci men Type: ARTERIAL BLOOD SPECIMENOrdering Facility: [facility] Address: [address] [place] [address] Result Comment: Carb oxyhemoglobin Reference Range for Smokers: 2.0-8.0% Performed By: #### A LLBG ####[facility] [id number] [place] [address] [place] CO2 (Bld) [Partial pressure] 53 mm Hg High 36-46 [facility] Comment on above: Order Comment: Speci men Type: ARTERIAL BLOOD SPECIMENOrdering Facility: [facility] Address: [address] [place] [address] Performed By: #### A LLBG ####[facility] [id number] [place] [address] [place] Glucose [Mass/Vol] 104 mg/dL Normal 60-105 [facility] Comment on above: Order Comment: Speci men Type: ARTERIAL BLOOD SPECIMENOrdering Facility: [facility] Address: [address] [place] [address] Performed By: #### A LLBG ####[facility] [id number] [place] [address] [place] HCO3 (Bld) [Moles/Vol] 32 mmol/L High 22-26 [facility] Comment on above: Order Comment: Speci men Type: ARTERIAL BLOOD SPECIMENOrdering Facility: [facility] Address: [address] [place] [address] Performed By: #### A LLBG ####[facility] [id number] [place] [address] [place] Hematocrit (Bld) [Volume fraction] 29.7 % Low 39.0-51.0 [facility] Comment on above: Order Comment: Speci men Type: ARTERIAL BLOOD SPECIMENOrdering Facility: [facility] Address: [address] [place] [address] Performed By: #### A LLBG ####[facility] [id number] [place] [address] [place] Hemoglobin (Bld) [Mass/Vol] 9.6 g/dL Low 13.0-17.0 [facility] Comment on above: Order Comment: Speci men Type: ARTERIAL BLOOD SPECIMENOrdering Facility: [facility] Address: [address] [place] [address] Performed By: #### A LLBG ####[facility] [id number] [place] [address] [place] Lactate [Moles/Vol] 0.7 mmol/L Normal 0.5-2.2 [facility] Comment on above: Order Comment: Speci men Type: ARTERIAL BLOOD SPECIMENOrdering Facility: [facility] Address: [address] [place] [address] Performed By: #### A LLBG ####[facility] [id number] [place] [address] [place] LITERS 4 Liters/min Normal [facility] Comment on above: Order Comment: Speci men Type: ARTERIAL BLOOD SPECIMENOrdering Facility: [facility] Address: [address] [place] [address] Performed By: #### A LLBG ####[facility] [id number] [place] [address] [place] Methemoglobin (Bld) [Mass fraction] 0.9 % Normal 0.0-1.5 [facility] Comment on above: Order Comment: Speci men Type: ARTERIAL BLOOD SPECIMENOrdering Facility: [facility] Address: [address] [place] [address] Performed By: #### A LLBG ####[facility] [id number] [place] [address] [place] O2 THERAPY Positive Normal [facility] Comment on above: Order Comment: Speci men Type: ARTERIAL BLOOD SPECIMENOrdering Facility: [facility] Address: [address] [place] [address] Performed By: #### A LLBG ####[facility] [id number] [address] [address] [place] Oxygen (Bld) [Partial pressure] 160 mm Hg High 85-95 [facility] Comment on above: Order Comment: Speci men Type: ARTERIAL BLOOD SPECIMENOrdering Facility: [facility] Address: [address] [place] [address] Performed By: #### A LLBG ####[facility] [id number] [place] [address] [place] Oxyhemoglobin (BldA) [Mass fraction] 97 % Normal 95-98 [facility] Comment on above: Order Comment: Speci men Type: ARTERIAL BLOOD SPECIMENOrdering Facility: [facility] Address: [address] [place] [address] Performed By: #### A LLBG ####[facility] [id number] [place] [address] [place] pH (Bld) 7.40 [pH] Normal 7.35-7.45 [facility] Comment on above: Order Comment: Speci men Type: ARTERIAL BLOOD SPECIMENOrdering Facility: [facility] Address: [address] [place] [address] Performed By: #### A LLBG ####[facility] [id number] [place] [id number] [place] Potassium [Moles/Vol] 4.2 mmol/L Normal 3.5-5.0 [facility] Comment on above: Order Comment: Speci men Type: ARTERIAL BLOOD SPECIMENOrdering Facility: [facility] Address: [address] [place], [place] [id number] Performed By: #### A LLBG ####[facility] [id number] [place] [address] [place] Sodium [Moles/Vol] 136 mmol/L Normal 136-144 [facility] Comment on above: Order Comment: Speci men Type: ARTERIAL BLOOD SPECIMENOrdering Facility: [facility] Address: [address] [place] [address] Performed By: #### A LLBG ####[facility] [id number] [place] [address] [place] CBC panel Auto (Bld)on 01-26 Erythrocyte distribution width (RBC) [Ratio] 14.6 % Normal 11.5-15.0 [facility] Comment on above: Order Comment: Speci men Type: BLOOD SPECIMENOrdering Facility: [facility] Address: [address] [place] [address] Performed By: #### 5 8410-2 ####[facility] [id number] [place] [address] [place] Hematocrit (Bld) [Volume fraction] 29.9 % Low 39.0-51.0 [facility] Comment on above: Order Comment: Speci men Type: BLOOD SPECIMENOrdering Facility: [facility] Address: [address] [place] [address] Performed By: #### 5 8410-2 ####[facility] [id number] [place] [address] [place] Hemoglobin (Bld) [Mass/Vol] 9.7 g/dL Low 13.0-17.0 [facility] Comment on above: Order Comment: Speci men Type: BLOOD SPECIMENOrdering Facility: [facility] Address: [address] [place] [address] Performed By: #### 5 8410-2 ####[facility] [id number] [place] [address] [place] MCH (RBC) [Entitic mass] 28.2 pg Normal 26.0-34.0 [facility] Comment on above: Order Comment: Speci men Type: BLOOD SPECIMENOrdering Facility: [facility] Address: [address] [place] [address] Performed By: #### 5 8410-2 ####[facility] [id number] [place] [address] [place] MCHC (RBC) [Mass/Vol] 32.4 g/dL Normal 30.5-36.0 [facility] Comment on above: Order Comment: Speci men Type: BLOOD SPECIMENOrdering Facility: [facility] Address: [address] [place] [address] Performed By: #### 5 8410-2 ####[facility] [id number] [place] [address] [place] MCV (RBC) [Entitic vol] 86.9 fL Normal 80.0-100.0 [facility] Comment on above: Order Comment: Speci men Type: BLOOD SPECIMENOrdering Facility: [facility] Address: [address] [place] [address] Performed By: #### 5 8410-2 ####[facility] [id number] [place] [address] [place] Nucleated RBC (Bld) [#/Vol] 10*3/uL Normal <0.01 [facility] Comment on above: Order Comment: Speci men Type: BLOOD SPECIMENOrdering Facility: [facility] Address: [address] [place] [address] Performed By: #### 5 8410-2 ####[facility] [id number] [place] [address] [place] Platelet mean volume (Bld) [Entitic vol] 11.3 fL Normal 9.0-12.7 [facility] Comment on above: Order Comment: Speci men Type: BLOOD SPECIMENOrdering Facility: [facility] Address: [address] [place] [address] Performed By: #### 5 8410-2 ####[facility] [id number] [place] [address] [place] Platelets (Bld) [#/Vol] 122 10*3/uL Low 150-400 [facility] Comment on above: Order Comment: Speci men Type: BLOOD SPECIMENOrdering Facility: [facility] Address: [address] [place] [address] Result Comment: No c lot detected.Results checked and verified. Performed By: #### 5 8410-2 ####[facility] [id number] [place] [address] [place] RBC (Bld) [#/Vol] 3.44 10*6/uL Low 4.20-6.00 [facility] Comment on above: Order Comment: Speci men Type: BLOOD SPECIMENOrdering Facility: [facility] Address: [address] [place] [address] Performed By: #### 5 8410-2 ####[facility] [id number] [place] [address] [place] WBC (Bld) [#/Vol] 9.60 10*3/uL Normal 3.70-11.00 [facility] Comment on above: Order Comment: Speci men Type: BLOOD SPECIMENOrdering Facility: [facility] Address: [address] [place] [address] Performed By: #### 5 8410-2 ####[facility] [id number] [place] [address] [place] Comprehensive metabolic 2000 panelon 01-27-2024 Albumin [Mass/Vol] 3.9 g/dL Normal 3.9-4.9 [facility] Comment on above: Order Comment: Speci men Type: BLOOD SPECIMENOrdering Facility: [facility] Address: [address] [place] [address] Performed By: #### 2 4323-8 ####[facility] [id number] [place] [address] [place] ALP [Catalytic activity/Vol] 46 U/L Normal 38-113 [facility] Comment on above: Order Comment: Speci men Type: BLOOD SPECIMENOrdering Facility: [facility] Address: [address] [place] [address] Performed By: #### 2 4323-8 ####[facility] [id number] [place] [address] [place] ALT [Catalytic activity/Vol] 17 U/L Normal 10-54 [facility] Comment on above: Order Comment: Speci men Type: BLOOD SPECIMENOrdering Facility: [facility] Address: [address] [place] [address] Performed By: #### 2 4323-8 ####[facility] [id number] [place] [address] [place] Anion gap [Moles/Vol] 14 mmol/L Normal 8-15 [facility] Comment on above: Order Comment: Speci men Type: BLOOD SPECIMENOrdering Facility: [facility] Address: [address] [place] [address] Performed By: #### 2 4323-8 ####[facility] [id number] [place] [address] [place] AST [Catalytic activity/Vol] 52 U/L High 14-40 [facility] Comment on above: Order Comment: Speci men Type: BLOOD SPECIMENOrdering Facility: [facility] Address: [address] [place] [address] Performed By: #### 2 4323-8 ####[facility] [id number] [place] [address] [place] Bilirubin [Mass/Vol] 0.6 mg/dL Normal 0.2-1.3 [facility] Comment on above: Order Comment: Speci men Type: BLOOD SPECIMENOrdering Facility: [facility] Address: [address] [place] [address] Performed By: #### 2 4323-8 ####[facility] [id number] [address] [address] [place] Calcium [Mass/Vol] 8.9 mg/dL Normal 8.5-10.2 [facility] Comment on above: Order Comment: Speci men Type: BLOOD SPECIMENOrdering Facility: [facility] Address: [address] [place] [address] Performed By: #### 2 4323-8 ####[facility] [id number] [place] [address] [place] Chloride [Moles/Vol] 97 mmol/L Low 98-107 [facility] Comment on above: Order Comment: Speci men Type: BLOOD SPECIMENOrdering Facility: [facility] Address: [address] [place] [address] Performed By: #### 2 4323-8 ####[facility] [id number] [place] [address] [place] CO2 [Moles/Vol] 27 mmol/L Normal 22-30 [facility] Comment on above: Order Comment: Speci men Type: BLOOD SPECIMENOrdering Facility: [facility] Address: [address] [place] [address] Performed By: #### 2 4323-8 ####[facility] [id number] [place] [address] [place] Creatinine [Mass/Vol] 0.95 mg/dL Normal 0.73-1.22 [facility] Comment on above: Order Comment: Speci men Type: BLOOD SPECIMENOrdering Facility: [facility] Address: [address] [place] [address] Performed By: #### 2 4323-8 ####[facility] [id number] [place] [address] [place] Creatinine and Glomerular filtration rate.predicted panel (S/P/Bld) 88 mL/min/1.73m??? Normal >=60 [facility] Comment on above: Order Comment: Spectiffanie parry Type: BLOOD SPECIMENOrdering Facility: [facility] Address: [address] [place] [address] Result Comment: Talisha mated Glomerular Filtration Rate (eGFR) is calculated using the 2020 CKD-EPI creatinine equation. This equation utilizes serum creatinine, sex, and age as parameters. The creatinine assay has traceable calibration to isotope dilution-mass spectrometry. Refer to KDIGO guidelines for clinical interpretation. In patients with unstable renal function, e.g. those with acute kidney injury, the eGFR may not accurately reflect actual GFR. Performed By: #### 2 4323-8 ####[facility] [id number] [place] [address] [place] Glucose [Mass/Vol] 96 mg/dL Normal 74-99 [facility] Comment on above: Order Comment: Jeison parry Type: BLOOD SPECIMENOrdering Facility: [facility] Address: [address] [place] [address] Result Comment: The [place] [employer] (ADA) provides guidance for cutoff values for fasting glucose and random glucose. The ADA defines fasting as no caloric intake for at least 8 hours. Fasting plasma glucose results between 100 to 125 mg/dL indicate increased risk for diabetes (prediabetes).Fasting plasma glucose results greater than or equal to 126 mg/dL meet the criteria for diagnosis of diabetes. In the absence of unequivocal hyperglycemia, results should be confirmed by repeat testing. In a patient with classic symptoms of hyperglycemia or hyperglycemic crisis, random plasma glucose results greater than or equal to 200 mg/dL meet the criteria for diagnosis of diabetes.Reference: Standards of Medical Care in Diabetes 2016, [place] [employer]. Diabetes Care. 2016.39(Suppl 1). Performed By: #### 2 4323-8 ####[facility] [id number] [place] [address] [place] Potassium [Moles/Vol] 4.0 mmol/L Normal 3.7-5.1 [facility] Comment on above: Order Comment: Speci men Type: BLOOD SPECIMENOrdering Facility: [facility] Address: [address] [place] [address] Performed By: #### 2 4323-8 ####[facility] [id number] [place] [address] [place] Protein [Mass/Vol] 6.4 g/dL Normal 6.3-8.0 [facility] Comment on above: Order Comment: Speci men Type: BLOOD SPECIMENOrdering Facility: [facility] Address: [address] [place] [address] Performed By: #### 2 4323-8 ####[facility] [id number] [place] [address] [place] Sodium [Moles/Vol] 138 mmol/L Normal 136-144 [facility] Comment on above: Order Comment: Speci men Type: BLOOD SPECIMENOrdering Facility: [facility] Address: [address] [place] [address] Performed By: #### 2 4323-8 ####[facility] [id number] [place] [address] [place] Urea nitrogen [Mass/Vol] 35 mg/dL High 9-24 [facility] Comment on above: Order Comment: Speci men Type: BLOOD SPECIMENOrdering Facility: [facility] Address: [address] [place] [address] Performed By: #### 2 4323-8 ####[facility] [id number] [place] [address] [place] Fibrinogen PPP-mCncon 2023 Fibrinogen Coag (PPP) [Mass/Vol] 618 mg/dL High 200-400 [facility] Comment on above: Order Comment: Speci men Type: BLOOD SPECIMENOrdering Facility: [facility] Address: [address] [place] [id number] Performed By: #### 1 4979-9, 3255-7, 18429-3 ####[facility] [id number] [place] [address] [place] PT panel Coag (PPP)on 2023 INR Coag (PPP) [Relative time] 1.0 {INR} Normal 0.9-1.3 [facility] Comment on above: Order Comment: Jeison parry Type: BLOOD SPECIMENOrdering Facility: [facility] Address: [address] [place] [address] Result Comment: Indu min K Antagonist (VKA) Therapeutic Range: INR 2 to 3 (Target INR of 2.5)Note: For patients treated with VKA drugs, such as warfarin, the [place] [employer] 2012 Guideline recommends a therapeutic INR range of 2 to 3 (target INR of 2.5). This recommendation includes high-risk patients with antiphospholipid syndrome with previous arterial or venous thromboembolism, current-generation mechanical or bioprosthetic aortic heart valve replacement.Note: Patients with mechanical aortic valve replacement and additional risk factors for thromboembolic events (atrial fibrillation, previous thromboembolism, LV dysfunction, hypercoagulable conditions) or an older generation mechanical AVR (i.e., ball in-Cage) or any mechanical MVR should have a INR therapeutic range of 2.5 to 3.5 (target INR of 3).Anson GH, et al. Chest 2012, 141:7S-47SNishimura RA, et al. [facility] 2017, 70: 252-289 Performed By: #### 1 4979-9, 3255-7, 52900-1 ####[facility] [id number] [place] [id number] [place] PT Coag (PPP) [Time] 10.5 s Normal 9.7-13.0 [facility] Comment on above: Order Comment: Jeison brinda Type: BLOOD SPECIMENOrdering Facility: [facility] Address: [address] [place] [address] Performed By: #### 1 4979-9, 3255-7, 18743-6 ####[facility] [id number] [place] [address] [place] TYPE + SCREENon 01-27-2024 ABO O Normal [facility] Comment on above: Order Comment: Speci men Type: BLOOD SPECIMENOrdering Facility: [facility] Address: [address] [place] [address] Performed By: #### T SCR ####[facility] BLOOD BANKCLIA [id number] [place] [address] [place] Rh Nom (Bld) Positive Normal [facility] Comment on above: Order Comment: Speci men Type: BLOOD SPECIMENOrdering Facility: [facility] Address: [address] [place] [address] Performed By: #### T SCR ####[facility] BLOOD BANKCLIA [id number] [place] [address] [place] TYPE AND SCREEN EXPIRATION 01/30/2024 23:59 Normal [facility] Comment on above: Order Comment: Speci men Type: BLOOD SPECIMENOrdering Facility: [facility] Address: [address] [place] [address] Performed By: #### T SCR ####[facility] BLOOD BANKCLIA [id number] [place] [address] [place] XR CHEST 1V FRONTAL PORTon 1 XR CHEST 1V FRONTAL PORT Normal [facility] aPTT PPPon 01-27-2024 aPTT Coag (PPP) [Time] 27.6 s Normal 23.0-32.4 [facility] Comment on above: Order Comment: Speci men Type: BLOOD SPECIMENOrdering Facility: [facility] Address: [address] [place] [address] Performed By: #### 1 4979-9, 3255-7, 59187-9 ####[facility] [id number] [place] [address] [place] ARTERIAL BLOOD GASESon 01-25 Base excess Calc (Bld) [Moles/Vol] 6 mmol/L High 0-2 [facility] Comment on above: Order Comment: Speci men Type: ARTERIAL BLOOD SPECIMENOrdering Facility: [facility] Address: [address] [place] [address] Performed By: #### A LLBG ####[facility] [id number] [place] [address] [place] Body temperature 98.6 [degF] Normal [facility] Comment on above: Order Comment: Speci men Type: ARTERIAL BLOOD SPECIMENOrdering Facility: [facility] Address: [address] [place] [address] Performed By: #### A LLBG ####[facility] [id number] [place] [address] [place] Calcium.ionized (Bld) [Mass/Vol] 1.20 mmol/L Normal 1.08-1.30 [facility] Comment on above: Order Comment: Speci men Type: ARTERIAL BLOOD SPECIMENOrdering Facility: [facility] Address: [address] [place] [address] Performed By: #### A LLBG ####[facility] [id number] [place] [address] [place] Calcium.ionized adjusted to pH 7.4 (BldA) [Moles/Vol] 1.19 mmol/L Normal 1.08-1.30 [facility] Comment on above: Order Comment: Speci men Type: ARTERIAL BLOOD SPECIMENOrdering Facility: [facility] Address: [address] [place] [address] Performed By: #### A LLBG ####[facility] [id number] [place] [address] [place] Carboxyhemoglobin (BldA) [Mass fraction] 2.3 % High 0.0-2.0 [facility] Comment on above: Order Comment: Speci men Type: ARTERIAL BLOOD SPECIMENOrdering Facility: [facility] Address: [address] [place] [address] Result Comment: Carb oxyhemoglobin Reference Range for Smokers: 2.0-8.0% Performed By: #### A LLBG ####[facility] [id number] [place] [address] [place] CO2 (Bld) [Partial pressure] 51 mm Hg High 36-46 [facility] Comment on above: Order Comment: Speci men Type: ARTERIAL BLOOD SPECIMENOrdering Facility: [facility] Address: [address] [place] [address] Performed By: #### A LLBG ####[facility] [id number] [place] [address] [place] Glucose [Mass/Vol] 103 mg/dL Normal 60-105 [facility] Comment on above: Order Comment: Speci men Type: ARTERIAL BLOOD SPECIMENOrdering Facility: [facility] Address: [address] [place] [address] Performed By: #### A LLBG ####[facility] [id number] [place] [address] [place] HCO3 (Bld) [Moles/Vol] 31 mmol/L High 22-26 [facility] Comment on above: Order Comment: Speci men Type: ARTERIAL BLOOD SPECIMENOrdering Facility: [facility] Address: [address] [place] [address] Performed By: #### A LLBG ####[facility] [id number] [place] [address] [place] Hematocrit (Bld) [Volume fraction] 30.3 % Low 39.0-51.0 [facility] Comment on above: Order Comment: Speci men Type: ARTERIAL BLOOD SPECIMENOrdering Facility: [facility] Address: [address] [place] [address] Performed By: #### A LLBG ####[facility] [id number] [place] [address] [place] Hemoglobin (Bld) [Mass/Vol] 9.8 g/dL Low 13.0-17.0 [facility] Comment on above: Order Comment: Speci men Type: ARTERIAL BLOOD SPECIMENOrdering Facility: [facility] Address: [address] [place] [address] Performed By: #### A LLBG ####[facility] [id number] [place] [address] [place] Lactate [Moles/Vol] 0.6 mmol/L Normal 0.5-2.2 [facility] Comment on above: Order Comment: Speci men Type: ARTERIAL BLOOD SPECIMENOrdering Facility: [facility] Address: [address] [place] [address] Performed By: #### A LLBG ####[facility] [id number] [place] [address] [place] LITERS 2 Liters/min Normal [facility] Comment on above: Order Comment: Speci men Type: ARTERIAL BLOOD SPECIMENOrdering Facility: [facility] Address: [address] [place] [address] Performed By: #### A LLBG ####[facility] [id number] [place] [address] [place] Methemoglobin (Bld) [Mass fraction] 0.8 % Normal 0.0-1.5 [facility] Comment on above: Order Comment: Speci men Type: ARTERIAL BLOOD SPECIMENOrdering Facility: [facility] Address: [address] [place] [address] Performed By: #### A LLBG ####[facility] [id number] [place] [address] [place] O2 THERAPY Positive Normal [facility] Comment on above: Order Comment: Speci men Type: ARTERIAL BLOOD SPECIMENOrdering Facility: [facility] Address: [address] [place] [address] Performed By: #### A LLBG ####[facility] [id number] [address] [address] [place] Oxygen (Bld) [Partial pressure] 70 mm Hg Low 85-95 [facility] Comment on above: Order Comment: Speci men Type: ARTERIAL BLOOD SPECIMENOrdering Facility: [facility] Address: [address] [place] [address] Performed By: #### A LLBG ####[facility] [id number] [place] [address] [place] Oxyhemoglobin (BldA) [Mass fraction] 92 % Low 95-98 [facility] Comment on above: Order Comment: Speci men Type: ARTERIAL BLOOD SPECIMENOrdering Facility: [facility] Address: [address] [place] [address] Performed By: #### A LLBG ####[facility] [id number] [place] [address] [place] pH (Bld) 7.40 [pH] Normal 7.35-7.45 [facility] Comment on above: Order Comment: Speci men Type: ARTERIAL BLOOD SPECIMENOrdering Facility: [facility] Address: [address] [place] [address] Performed By: #### A LLBG ####[facility] [id number] [place] [address] [place] Potassium [Moles/Vol] 3.9 mmol/L Normal 3.5-5.0 [facility] Comment on above: Order Comment: Speci men Type: ARTERIAL BLOOD SPECIMENOrdering Facility: [facility] Address: [address] [place] [address] Performed By: #### A LLBG ####[facility] [id number] [place] [address] [place] Sodium [Moles/Vol] 137 mmol/L Normal 136-144 [facility] Comment on above: Order Comment: Speci men Type: ARTERIAL BLOOD SPECIMENOrdering Facility: [facility] Address: [address] [place] [address] Performed By: #### A LLBG ####[facility] [id number] [place] [address] [place] Base excess Calc (Bld) [Moles/Vol] 6 mmol/L High 0-2 [facility] Comment on above: Order Comment: Speci men Type: ARTERIAL BLOOD SPECIMENOrdering Facility: [facility] Address: [address] [place] [address] Performed By: #### A LLBG ####[facility] [id number] [place] [address] [place] Body temperature 98.6 [degF] Normal [facility] Comment on above: Order Comment: Speci men Type: ARTERIAL BLOOD SPECIMENOrdering Facility: [facility] Address: [address] [place] [address] Performed By: #### A LLBG ####[facility] [id number] [place] [address] [place] Calcium.ionized (Bld) [Mass/Vol] 1.18 mmol/L Normal 1.08-1.30 [facility] Comment on above: Order Comment: Speci men Type: ARTERIAL BLOOD SPECIMENOrdering Facility: [facility] Address: [address] [place] [address] Performed By: #### A LLBG ####[facility] [id number] [place] [address] [place] Calcium.ionized adjusted to pH 7.4 (BldA) [Moles/Vol] 1.18 mmol/L Normal 1.08-1.30 [facility] Comment on above: Order Comment: Speci men Type: ARTERIAL BLOOD SPECIMENOrdering Facility: [facility] Address: [address] [place] [address] Performed By: #### A LLBG ####[facility] [id number] [place] [address] [place] Carboxyhemoglobin (BldA) [Mass fraction] 2.0 % Normal 0.0-2.0 [facility] Comment on above: Order Comment: Speci men Type: ARTERIAL BLOOD SPECIMENOrdering Facility: [facility] Address: [address] [place] [address] Result Comment: Carb oxyhemoglobin Reference Range for Smokers: 2.0-8.0% Performed By: #### A LLBG ####[facility] [id number] [place] [address] [place] CO2 (Bld) [Partial pressure] 50 mm Hg High 36-46 [facility] Comment on above: Order Comment: Speci men Type: ARTERIAL BLOOD SPECIMENOrdering Facility: [facility] Address: [address] [place] [address] Performed By: #### A LLBG ####[facility] [id number] [place] [address] [place] Glucose [Mass/Vol] 111 mg/dL High 60-105 [facility] Comment on above: Order Comment: Speci men Type: ARTERIAL BLOOD SPECIMENOrdering Facility: [facility] Address: [address] [place] [address] Performed By: #### A LLBG ####[facility] [id number] [place] [address] [place] HCO3 (Bld) [Moles/Vol] 31 mmol/L High 22-26 [facility] Comment on above: Order Comment: Speci men Type: ARTERIAL BLOOD SPECIMENOrdering Facility: [facility] Address: [address] [place] [address] Performed By: #### A LLBG ####[facility] [id number] [place] [address] [place] Hematocrit (Bld) [Volume fraction] 29.6 % Low 39.0-51.0 [facility] Comment on above: Order Comment: Speci men Type: ARTERIAL BLOOD SPECIMENOrdering Facility: [facility] Address: [address] [place] [address] Performed By: #### A LLBG ####[facility] [id number] [place] [address] [place] Hemoglobin (Bld) [Mass/Vol] 9.6 g/dL Low 13.0-17.0 [facility] Comment on above: Order Comment: Speci men Type: ARTERIAL BLOOD SPECIMENOrdering Facility: [facility] Address: [address] [place] [address] Performed By: #### A LLBG ####[facility] [id number] [place] [address] [place] Lactate [Moles/Vol] 0.6 mmol/L Normal 0.5-2.2 [facility] Comment on above: Order Comment: Speci men Type: ARTERIAL BLOOD SPECIMENOrdering Facility: [facility] [facility] Address: [address] [place] [address] Performed By: #### A LLBG ####[facility] [id number] [place] [address] [place] LITERS 2 Liters/min Normal [facility] Comment on above: Order Comment: Speci men Type: ARTERIAL BLOOD SPECIMENOrdering Facility: [facility] Address: [address] [place] [address] Performed By: #### A LLBG ####[facility] [id number] [place] [address] [place] Methemoglobin (Bld) [Mass fraction] 0.7 % Normal 0.0-1.5 [facility] Comment on above: Order Comment: Speci men Type: ARTERIAL BLOOD SPECIMENOrdering Facility: [facility] Address: [address] [place] [address] Performed By: #### A LLBG ####[facility] [id number] [place] [address] [place] O2 THERAPY NC = Nasal Cannula Normal [facility] Comment on above: Order Comment: Speci men Type: ARTERIAL BLOOD SPECIMENOrdering Facility: [facility] Address: [address] [place] [address] Performed By: #### A LLBG ####[facility] [id number] [place] [address] [place] Oxygen (Bld) [Partial pressure] 138 mm Hg High 85-95 [facility] Comment on above: Order Comment: Speci men Type: ARTERIAL BLOOD SPECIMENOrdering Facility: [facility] Address: [address] [place] [address] Performed By: #### A LLBG ####[facility] [id number] [place] [address] [place] Oxyhemoglobin (BldA) [Mass fraction] 97 % Normal 95-98 [facility] Comment on above: Order Comment: Speci men Type: ARTERIAL BLOOD SPECIMENOrdering Facility: [facility] Address: [address] [place] [address] Performed By: #### A LLBG ####[facility] [id number] [place] [address] [place] pH (Bld) 7.41 [pH] Normal 7.35-7.45 [facility] Comment on above: Order Comment: Speci men Type: ARTERIAL BLOOD SPECIMENOrdering Facility: [facility] Address: [address] [place], [place] [id number] Performed By: #### A LLBG ####[facility] [id number] [place] [address] [place] Potassium [Moles/Vol] 4.1 mmol/L Normal 3.5-5.0 [facility] Comment on above: Order Comment: Speci men Type: ARTERIAL BLOOD SPECIMENOrdering Facility: [facility] Address: [address] [place] [address] Performed By: #### A LLBG ####[facility] [id number] [place] [address] [place] Sodium [Moles/Vol] 136 mmol/L Normal 136-144 [facility] Comment on above: Order Comment: Speci men Type: ARTERIAL BLOOD SPECIMENOrdering Facility: [facility] Address: [address] [place] [address] Performed By: #### A LLBG ####[facility] [id number] [place] [address] [place] Base excess Calc (Bld) [Moles/Vol] 6 mmol/L High 0-2 [facility] Comment on above: Order Comment: Speci men Type: ARTERIAL BLOOD SPECIMENOrdering Facility: [facility] Address: [address] [place] [address] Performed By: #### A LLBG ####[facility] [id number] [place] [address] [place] Body temperature 98.42 [degF] Normal [facility] Comment on above: Order Comment: Speci men Type: ARTERIAL BLOOD SPECIMENOrdering Facility: [facility] Address: [address] [place] [address] Performed By: #### A LLBG ####[facility] [id number] [place] [address] [place] Calcium.ionized (Bld) [Mass/Vol] 1.16 mmol/L Normal 1.08-1.30 [facility] Comment on above: Order Comment: Speci men Type: ARTERIAL BLOOD SPECIMENOrdering Facility: [facility] Address: [address] [place] [address] Performed By: #### A LLBG ####[facility] [id number] [place] [address] [place] Calcium.ionized adjusted to pH 7.4 (BldA) [Moles/Vol] 1.17 mmol/L Normal 1.08-1.30 [facility] Comment on above: Order Comment: Speci men Type: ARTERIAL BLOOD SPECIMENOrdering Facility: [facility] Address: [address] [place] [address] Performed By: #### A LLBG ####[facility] [id number] [place] [address] [place] Carboxyhemoglobin (BldA) [Mass fraction] 1.6 % Normal 0.0-2.0 [facility] Comment on above: Order Comment: Speci men Type: ARTERIAL BLOOD SPECIMENOrdering Facility: [facility] Address: [address] [place] [address] Result Comment: Carb oxyhemoglobin Reference Range for Smokers: 2.0-8.0% Performed By: #### A LLBG ####[facility] [id number] [place] [address] [place] CO2 (Bld) [Partial pressure] 48 mm Hg High 36-46 [facility] Comment on above: Order Comment: Speci men Type: ARTERIAL BLOOD SPECIMENOrdering Facility: [facility] Address: [address] [place] [address] Performed By: #### A LLBG ####[facility] [id number] [place] [address] [place] CO2 adjusted to patient's actual temperature (Bld) [Partial pressure] 47 mmHg High 36-46 [facility] Comment on above: Order Comment: Speci men Type: ARTERIAL BLOOD SPECIMENOrdering Facility: [facility] Address: [address] [place] [address] Performed By: #### A LLBG ####[facility] [id number] [place] [address] [place] Glucose [Mass/Vol] 110 mg/dL High 60-105 [facility] Comment on above: Order Comment: Speci men Type: ARTERIAL BLOOD SPECIMENOrdering Facility: [facility] Address: [address] [place] [address] Performed By: #### A LLBG ####[facility] [id number] [place] [address] [place] HCO3 (Bld) [Moles/Vol] 31 mmol/L High 22-26 [facility] Comment on above: Order Comment: Speci men Type: ARTERIAL BLOOD SPECIMENOrdering Facility: [facility] Address: [address] [place] [address] Performed By: #### A LLBG ####[facility] [id number] [place] [address] [place] Hematocrit (Bld) [Volume fraction] 31.3 % Low 39.0-51.0 [facility] Comment on above: Order Comment: Speci men Type: ARTERIAL BLOOD SPECIMENOrdering Facility: [facility] Address: [address] [place] [address] Performed By: #### A LLBG ####[facility] [id number] [place] [address] [place] Hemoglobin (Bld) [Mass/Vol] 10.1 g/dL Low 13.0-17.0 [facility] Comment on above: Order Comment: Speci men Type: ARTERIAL BLOOD SPECIMENOrdering Facility: [facility] Address: [address] [place] [address] Performed By: #### A LLBG ####[facility] [id number] [place] [id number] [address] [place] Lactate [Moles/Vol] 0.8 mmol/L Normal 0.5-2.2 [facility] Comment on above: Order Comment: Speci men Type: ARTERIAL BLOOD SPECIMENOrdering Facility: [facility] Address: [address] [place] [id number] Performed By: #### A LLBG ####[facility] [id number] [address] [place] Methemoglobin (Bld) [Mass fraction] 0.7 % Normal 0.0-1.5 [facility] Comment on above: Order Comment: Speci men Type: ARTERIAL BLOOD SPECIMENOrdering Facility: [facility] Address: [address] [place] [address] Performed By: #### A LLBG ####[facility] [id number] [address] [place] O2 THERAPY NC = Nasal Cannula Normal [facility] Comment on above: Order Comment: Speci men Type: ARTERIAL BLOOD SPECIMENOrdering Facility: [facility] Address: [address] [place], [place] [address] Performed By: #### A LLBG ####[facility] [id number] [place] [id number] [place] Oxygen (Bld) [Partial pressure] 157 mm Hg High 85-95 [facility] Comment on above: Order Comment: Speci men Type: ARTERIAL BLOOD SPECIMENOrdering Facility: [facility] Address: [address] [place] [address] Performed By: #### A LLBG ####[facility] [id number] [place] [address] [place] Oxygen adjusted to patient's actual temperature (Bld) [Partial pressure] 157 mmHg High 85-95 [facility] Comment on above: Order Comment: Speci men Type: ARTERIAL BLOOD SPECIMENOrdering Facility: [facility] Address: [address] [place] [id number] Performed By: #### A LLBG ####[facility] [id number] [place] [address] [place] Oxyhemoglobin (BldA) [Mass fraction] 97 % Normal 95-98 [facility] Comment on above: Order Comment: Speci men Type: ARTERIAL BLOOD SPECIMENOrdering Facility: [facility] Address: [address] [place] [address] Performed By: #### A LLBG ####[facility] [id number] [place] [address] [place] pH (Bld) 7.42 [pH] Normal 7.35-7.45 [facility] Comment on above: Order Comment: Speci men Type: ARTERIAL BLOOD SPECIMENOrdering Facility: [facility] Address: [address] [place] [address] Performed By: #### A LLBG ####[facility] [id number] [place] [address] [place] pH adjusted to patient's actual temperature (Bld) 7.43 Normal 7.35-7.45 [facility] Comment on above: Order Comment: Speci men Type: ARTERIAL BLOOD SPECIMENOrdering Facility: [facility] Address: [address] [place] [address] Performed By: #### A LLBG ####[facility] [id number] [place] [address] [place] Potassium [Moles/Vol] 3.9 mmol/L Normal 3.5-5.0 [facility] Comment on above: Order Comment: Speci men Type: ARTERIAL BLOOD SPECIMENOrdering Facility: [facility] Address: [address] [place] [address] Performed By: #### A LLBG ####[facility] [id number] [place] [address] [place] Sodium [Moles/Vol] 137 mmol/L Normal 136-144 [facility] Comment on above: Order Comment: Speci men Type: ARTERIAL BLOOD SPECIMENOrdering Facility: [facility] Address: [address] [place] [address] Performed By: #### A LLBG ####[facility] [id number] [place] [address] [place] Base excess Calc (Bld) [Moles/Vol] 5 mmol/L High 0-2 [facility] Comment on above: Order Comment: Speci men Type: ARTERIAL BLOOD SPECIMENOrdering Facility: [facility] Address: [address] [place] [address] Performed By: #### A LLBG ####[facility] [id number] [place] [address] [place] Body temperature 98.78 [degF] Normal [facility] Comment on above: Order Comment: Speci men Type: ARTERIAL BLOOD SPECIMENOrdering Facility: [facility] Address: [address] [place] [address] Performed By: #### A LLBG ####[facility] [id number] [place] [address] [place] Calcium.ionized (Bld) [Mass/Vol] 1.17 mmol/L Normal 1.08-1.30 [facility] Comment on above: Order Comment: Speci men Type: ARTERIAL BLOOD SPECIMENOrdering Facility: [facility] Address: [address] [place] [address] Performed By: #### A LLBG ####[facility] [id number] [place] [address] [place] Calcium.ionized adjusted to pH 7.4 (BldA) [Moles/Vol] 1.18 mmol/L Normal 1.08-1.30 [facility] Comment on above: Order Comment: Speci men Type: ARTERIAL BLOOD SPECIMENOrdering Facility: [facility] Address: [address] [place], [place] [address] Performed By: #### A LLBG ####[facility] [id number] [place] [address] [place] Carboxyhemoglobin (BldA) [Mass fraction] 1.7 % Normal 0.0-2.0 [facility] Comment on above: Order Comment: Speci men Type: ARTERIAL BLOOD SPECIMENOrdering Facility: [facility] Address: [address] [place] [address] Performed By: #### A LLBG ####[facility] [id number] [place] [address] [place] CO2 (Bld) [Partial pressure] 47 mm Hg High 36-46 [facility] Comment on above: Order Comment: Speci men Type: ARTERIAL BLOOD SPECIMENOrdering Facility: [facility] Address: [address] [place] [address] Performed By: #### A LLBG ####[facility] [id number] [place] [address] [place] CO2 adjusted to patient's actual temperature (Bld) [Partial pressure] 47 mmHg High 36-46 [facility] Comment on above: Order Comment: Speci men Type: ARTERIAL BLOOD SPECIMENOrdering Facility: [facility] Address: [address] [place] [address] Performed By: #### A LLBG ####[facility] [id number] [place] [address] [place] Glucose [Mass/Vol] 109 mg/dL High 60-105 [facility] Comment on above: Order Comment: Speci men Type: ARTERIAL BLOOD SPECIMENOrdering Facility: [facility] Address: [address] [place] [address] Performed By: #### A LLBG ####[facility] [id number] [place] [address] [place] HCO3 (Bld) [Moles/Vol] 29 mmol/L High 22-26 [facility] Comment on above: Order Comment: Speci men Type: ARTERIAL BLOOD SPECIMENOrdering Facility: [facility] Address: [address] [place] [address] Performed By: #### A LLBG ####[facility] [id number] [place] [address] [place] Hematocrit (Bld) [Volume fraction] 31.7 % Low 39.0-51.0 [facility] Comment on above: Order Comment: Speci men Type: ARTERIAL BLOOD SPECIMENOrdering Facility: [facility] Address: [address] [place] [address] Performed By: #### A LLBG ####[facility] [id number] [place] [address] [place] Hemoglobin (Bld) [Mass/Vol] 10.3 g/dL Low 13.0-17.0 [facility] Comment on above: Order Comment: Speci men Type: ARTERIAL BLOOD SPECIMENOrdering Facility: [facility] Address: [address] [place] [address] Performed By: #### A LLBG ####[facility] [id number] [place] [address] [place] Lactate [Moles/Vol] 1.0 mmol/L Normal 0.5-2.2 [facility] Comment on above: Order Comment: Speci men Type: ARTERIAL BLOOD SPECIMENOrdering Facility: [facility] Address: [address] [place] [address] Performed By: #### A LLBG ####[facility] [id number] [place] [address] [place] LITERS 3 Liters/min Normal [facility] Comment on above: Order Comment: Speci men Type: ARTERIAL BLOOD SPECIMENOrdering Facility: [facility] Address: [address] [place] [address] Performed By: #### A LLBG ####[facility] [id number] [place] [id number] [place] Methemoglobin (Bld) [Mass fraction] 0.9 % Normal 0.0-1.5 [facility] Comment on above: Order Comment: Speci men Type: ARTERIAL BLOOD SPECIMENOrdering Facility: [facility] Address: [address] [place] [address] Performed By: #### A LLBG ####[facility] [id number] [place] [id number] [place] O2 THERAPY NC = Nasal Cannula Normal [facility] Comment on above: Order Comment: Speci men Type: ARTERIAL BLOOD SPECIMENOrdering Facility: [facility] Address: [address] [place] [address] Performed By: #### A LLBG ####[facility] [id number] [place] [address] [place] Oxygen (Bld) [Partial pressure] 149 mm Hg High 85-95 [facility] Comment on above: Order Comment: Speci men Type: ARTERIAL BLOOD SPECIMENOrdering Facility: [facility] Address: [address] [place], [place] [address] Performed By: #### A LLBG ####[facility] [id number] [place] [id number] [place] Oxygen adjusted to patient's actual temperature (Bld) [Partial pressure] 150 mmHg High 85-95 [facility] Comment on above: Order Comment: Speci men Type: ARTERIAL BLOOD SPECIMENOrdering Facility: [facility] Address: [address] [place], [place] [address] Performed By: #### A LLBG ####[facility] [id number] [address] [address] [place] Oxyhemoglobin (BldA) [Mass fraction] 97 % Normal 95-98 [facility] Comment on above: Order Comment: Speci men Type: ARTERIAL BLOOD SPECIMENOrdering Facility: [facility] Address: [address] [place] [address] Performed By: #### A LLBG ####[facility] [id number] [place] [address] [place] pH (Bld) 7.41 [pH] Normal 7.35-7.45 [facility] Comment on above: Order Comment: Speci men Type: ARTERIAL BLOOD SPECIMENOrdering Facility: [facility] Address: [address] [place] [address] Performed By: #### A LLBG ####[facility] [id number] [place] [address] [place] pH adjusted to patient's actual temperature (Bld) 7.41 Normal 7.35-7.45 [facility] Comment on above: Order Comment: Speci men Type: ARTERIAL BLOOD SPECIMENOrdering Facility: [facility] Address: [address] [place] [address] Performed By: #### A LLBG ####[facility] [id number] [place] [address] [place] Potassium [Moles/Vol] 4.2 mmol/L Normal 3.5-5.0 [facility] Comment on above: Order Comment: Speci men Type: ARTERIAL BLOOD SPECIMENOrdering Facility: [facility] Address: [address] [place] [address] Performed By: #### A LLBG ####[facility] [id number] [place] [address] [place] Sodium [Moles/Vol] 137 mmol/L Normal 136-144 [facility] Comment on above: Order Comment: Speci men Type: ARTERIAL BLOOD SPECIMENOrdering Facility: [facility] Address: [address] [place] [address] Performed By: #### A LLBG ####[facility] [id number] [place] [address] [place] Base excess Calc (Bld) [Moles/Vol] 5 mmol/L High 0-2 [facility] Comment on above: Order Comment: Speci men Type: ARTERIAL BLOOD SPECIMENOrdering Facility: [facility] Address: [address] [place] [address] Performed By: #### A LLBG ####[facility] [id number] [place] [address] [place] Body temperature 98.24 [degF] Normal [facility] Comment on above: Order Comment: Speci men Type: ARTERIAL BLOOD SPECIMENOrdering Facility: [facility] Address: [address] [place] [address] Performed By: #### A LLBG ####[facility] [id number] [place] [address] [place] Calcium.ionized (Bld) [Mass/Vol] 1.14 mmol/L Normal 1.08-1.30 [facility] Comment on above: Order Comment: Speci men Type: ARTERIAL BLOOD SPECIMENOrdering Facility: [facility] Address: [address] [place] [address] Performed By: #### A LLBG ####[facility] [id number] [place] [address] [place] Calcium.ionized adjusted to pH 7.4 (BldA) [Moles/Vol] 1.14 mmol/L Normal 1.08-1.30 [facility] Comment on above: Order Comment: Speci men Type: ARTERIAL BLOOD SPECIMENOrdering Facility: [facility] Address: [address] [place] [address] Performed By: #### A LLBG ####[facility] [id number] [place] [address] [place] Carboxyhemoglobin (BldA) [Mass fraction] 1.8 % Normal 0.0-2.0 [facility] Comment on above: Order Comment: Speci men Type: ARTERIAL BLOOD SPECIMENOrdering Facility: [facility] Address: [address] [place] [address] Performed By: #### A LLBG ####[facility] [id number] [place] [address] [place] CO2 (Bld) [Partial pressure] 48 mm Hg High 36-46 [facility] Comment on above: Order Comment: Speci men Type: ARTERIAL BLOOD SPECIMENOrdering Facility: [facility] Address: [address] [place] [address] Performed By: #### A LLBG ####[facility] [id number] [place] [address] [place] CO2 adjusted to patient's actual temperature (Bld) [Partial pressure] 48 mmHg High 36-46 [facility] Comment on above: Order Comment: Speci men Type: ARTERIAL BLOOD SPECIMENOrdering Facility: [facility] Address: [address] [place] [address] Performed By: #### A LLBG ####[facility] [id number] [place] [address] [place] Glucose [Mass/Vol] 114 mg/dL High 60-105 [facility] Comment on above: Order Comment: Speci men Type: ARTERIAL BLOOD SPECIMENOrdering Facility: [facility] Address: [address] [place] [address] Performed By: #### A LLBG ####[facility] [id number] [place] [address] [place] HCO3 (Bld) [Moles/Vol] 30 mmol/L High 22-26 [facility] Comment on above: Order Comment: Speci men Type: ARTERIAL BLOOD SPECIMENOrdering Facility: [facility] Address: [address] [place] [address] Performed By: #### A LLBG ####[facility] [id number] [place] [address] [place] Hematocrit (Bld) [Volume fraction] 31.8 % Low 39.0-51.0 [facility] Comment on above: Order Comment: Speci men Type: ARTERIAL BLOOD SPECIMENOrdering Facility: [facility] Address: [address] [place] [address] Performed By: #### A LLBG ####[facility] [id number] [place] [address] [place] Hemoglobin (Bld) [Mass/Vol] 10.3 g/dL Low 13.0-17.0 [facility] Comment on above: Order Comment: Speci men Type: ARTERIAL BLOOD SPECIMENOrdering Facility: [facility] Address: [address] [place] [address] Performed By: #### A LLBG ####[facility] [id number] [place] [address] [place] Lactate [Moles/Vol] 1.0 mmol/L Normal 0.5-2.2 [facility] Comment on above: Order Comment: Speci men Type: ARTERIAL BLOOD SPECIMENOrdering Facility: [facility] Address: [address] [place] [address] Performed By: #### A LLBG ####[facility] [id number] [place] [address] [place] LITERS 4 Liters/min Normal [facility] Comment on above: Order Comment: Speci men Type: ARTERIAL BLOOD SPECIMENOrdering Facility: [facility] Address: [address] [place] [address] Performed By: #### A LLBG ####[facility] [id number] [place] [address] [place] Methemoglobin (Bld) [Mass fraction] 1.8 % High 0.0-1.5 [facility] Comment on above: Order Comment: Speci men Type: ARTERIAL BLOOD SPECIMENOrdering Facility: [facility] Address: [address] [place] [address] Performed By: #### A LLBG ####[facility] [id number] [address] [address] [place] O2 THERAPY NC = Nasal Cannula Normal [facility] Comment on above: Order Comment: Speci men Type: ARTERIAL BLOOD SPECIMENOrdering Facility: [facility] Address: [address] [place] [id number] Performed By: #### A LLBG ####[facility] [id number] [place] [id number] [place] Oxygen (Bld) [Partial pressure] 117 mm Hg High 85-95 [facility] Comment on above: Order Comment: Speci men Type: ARTERIAL BLOOD SPECIMENOrdering Facility: [facility] Address: [address] [place] [id number] Performed By: #### A LLBG ####[facility] [id number] [place] [address] [place] Oxygen adjusted to patient's actual temperature (Bld) [Partial pressure] 116 mmHg High 85-95 [facility] Comment on above: Order Comment: Speci men Type: ARTERIAL BLOOD SPECIMENOrdering Facility: [facility] Address: [address] [place] [id number] Performed By: #### A LLBG ####[facility] [id number] [address] [address] [place] Oxyhemoglobin (BldA) [Mass fraction] 95 % Normal 95-98 [facility] Comment on above: Order Comment: Speci men Type: ARTERIAL BLOOD SPECIMENOrdering Facility: [facility] Address: [address] [place] [id number] Performed By: #### A LLBG ####[facility] [id number] [place] [address] [place] pH (Bld) 7.41 [pH] Normal 7.35-7.45 [facility] Comment on above: Order Comment: Speci men Type: ARTERIAL BLOOD SPECIMENOrdering Facility: [facility] Address: [address] [place] [address] Performed By: #### A LLBG ####[facility] [id number] [place] [address] [place] pH adjusted to patient's actual temperature (Bld) 7.41 Normal 7.35-7.45 [facility] Comment on above: Order Comment: Speci men Type: ARTERIAL BLOOD SPECIMENOrdering Facility: [facility] Address: [address] [place] [address] Performed By: #### A LLBG ####[facility] [id number] [place] [address] [place] Potassium [Moles/Vol] 4.8 mmol/L Normal 3.5-5.0 [facility] Comment on above: Order Comment: Speci men Type: ARTERIAL BLOOD SPECIMENOrdering Facility: [facility] Address: [address] [place] [address] Performed By: #### A LLBG ####[facility] [id number] [place] [address] [place] Sodium [Moles/Vol] 137 mmol/L Normal 136-144 [facility] Comment on above: Order Comment: Speci men Type: ARTERIAL BLOOD SPECIMENOrdering Facility: [facility] Address: [address] [place] [address] Performed By: #### A LLBG ####[facility] [id number] [place] [address] [place] Base excess Calc (Bld) [Moles/Vol] 3 mmol/L High 0-2 [facility] Comment on above: Order Comment: Speci men Type: ARTERIAL BLOOD SPECIMENOrdering Facility: [facility] Address: [address] [place] [address] Performed By: #### A LLBG ####[facility] [id number] [place] [address] [place] Calcium.ionized (Bld) [Mass/Vol] 1.33 mmol/L High 1.08-1.30 [facility] Comment on above: Order Comment: Speci men Type: ARTERIAL BLOOD SPECIMENOrdering Facility: [facility] Address: [address] [place] [address] Performed By: #### A LLBG ####[facility] [id number] [place] [address] [place] Calcium.ionized adjusted to pH 7.4 (BldA) [Moles/Vol] 1.30 mmol/L Normal 1.08-1.30 [facility] Comment on above: Order Comment: Speci men Type: ARTERIAL BLOOD SPECIMENOrdering Facility: [facility] Address: [address] [place] [address] Performed By: #### A LLBG ####[facility] [id number] [place] [address] [place] Carboxyhemoglobin (BldA) [Mass fraction] 2.0 % Normal 0.0-2.0 [facility] Comment on above: Order Comment: Speci men Type: ARTERIAL BLOOD SPECIMENOrdering Facility: [facility] Address: [address] [place] [address] Result Comment: Carb oxyhemoglobin Reference Range for Smokers: 2.0-8.0% Performed By: #### A LLBG ####[facility] [id number] [place] [address] [place] CO2 (Bld) [Partial pressure] 53 mm Hg High 36-46 [facility] Comment on above: Order Comment: Speci men Type: ARTERIAL BLOOD SPECIMENOrdering Facility: [facility] Address: [address] [place] [address] Performed By: #### A LLBG ####[facility] [id number] [place] [address] [place] Glucose [Mass/Vol] 118 mg/dL High 60-105 [facility] Comment on above: Order Comment: Speci men Type: ARTERIAL BLOOD SPECIMENOrdering Facility: [facility] Address: [address] [place] [address] Performed By: #### A LLBG ####[facility] [id number] [place] [address] [place] HCO3 (Bld) [Moles/Vol] 29 mmol/L High 22-26 [facility] Comment on above: Order Comment: Speci men Type: ARTERIAL BLOOD SPECIMENOrdering Facility: [facility] Address: [address] [place] [address] Performed By: #### A LLBG ####[facility] [id number] [place] [address] [place] Hematocrit (Bld) [Volume fraction] 30.7 % Low 39.0-51.0 [facility] Comment on above: Order Comment: Speci men Type: ARTERIAL BLOOD SPECIMENOrdering Facility: [facility] Address: [address] [place] [address] Performed By: #### A LLBG ####[facility] [id number] [place] [address] [place] Hemoglobin (Bld) [Mass/Vol] 9.9 g/dL Low 13.0-17.0 [facility] Comment on above: Order Comment: Speci men Type: ARTERIAL BLOOD SPECIMENOrdering Facility: [facility] Address: [address] [place] [address] Performed By: #### A LLBG ####[facility] [id number] [place] [address] [place] LITERS 3 Liters/min Normal [facility] Comment on above: Order Comment: Speci men Type: ARTERIAL BLOOD SPECIMENOrdering Facility: [facility] Address: [address] [place] [address] Performed By: #### A LLBG ####[facility] [id number] [place] [address] [place] Oxygen (Bld) [Partial pressure] 167 mm Hg High 85-95 [facility] Comment on above: Order Comment: Speci men Type: ARTERIAL BLOOD SPECIMENOrdering Facility: [facility] Address: [address] [place] [address] Performed By: #### A LLBG ####[facility] [id number] [place] [address] [place] Oxyhemoglobin (BldA) [Mass fraction] 97 % Normal 95-98 [facility] Comment on above: Order Comment: Speci men Type: ARTERIAL BLOOD SPECIMENOrdering Facility: [facility] Address: [address] [place] [address] Performed By: #### A LLBG ####[facility] [id number] [place] [address] [place] pH (Bld) 7.36 [pH] Normal 7.35-7.45 [facility] Comment on above: Order Comment: Speci men Type: ARTERIAL BLOOD SPECIMENOrdering Facility: [facility] Address: [address] [place] [address] Performed By: #### A LLBG ####[facility] [id number] [place] [address] [place] Potassium [Moles/Vol] 4.5 mmol/L Normal 3.5-5.0 [facility] Comment on above: Order Comment: Speci men Type: ARTERIAL BLOOD SPECIMENOrdering Facility: [facility] Address: [address] [place] [address] Performed By: #### A LLBG ####[facility] [id number] [place] [address] [place] Sodium [Moles/Vol] 146 mmol/L High 136-144 [facility] Comment on above: Order Comment: Speci men Type: ARTERIAL BLOOD SPECIMENOrdering Facility: [facility] Address: [address] [place] [address] Performed By: #### A LLBG ####[facility] [id number] [place] [address] [place] Base excess Calc (Bld) [Moles/Vol] 5 mmol/L High 0-2 [facility] Comment on above: Order Comment: Speci men Type: ARTERIAL BLOOD SPECIMENOrdering Facility: [facility] Address: [address] [place] [address] Performed By: #### A LLBG ####[facility] [id number] [place] [address] [place] Calcium.ionized (Bld) [Mass/Vol] 1.16 mmol/L Normal 1.08-1.30 [facility] Comment on above: Order Comment: Speci men Type: ARTERIAL BLOOD SPECIMENOrdering Facility: [facility] Address: [address] [place] [address] Performed By: #### A LLBG ####[facility] [id number] [place] [address] [place] Calcium.ionized adjusted to pH 7.4 (BldA) [Moles/Vol] 1.18 mmol/L Normal 1.08-1.30 [facility] Comment on above: Order Comment: Speci men Type: ARTERIAL BLOOD SPECIMENOrdering Facility: [facility] Address: [address] [place] [address] Performed By: #### A LLBG ####[facility] [id number] [place] [address] [place] Carboxyhemoglobin (BldA) [Mass fraction] 2.2 % High 0.0-2.0 [facility] Comment on above: Order Comment: Speci men Type: ARTERIAL BLOOD SPECIMENOrdering Facility: [facility] Address: [address] [place] [address] Result Comment: Carb oxyhemoglobin Reference Range for Smokers: 2.0-8.0% Performed By: #### A LLBG ####[facility] [id number] [place] [address] [place] CO2 (Bld) [Partial pressure] 45 mm Hg Normal 36-46 [facility] Comment on above: Order Comment: Speci men Type: ARTERIAL BLOOD SPECIMENOrdering Facility: [facility] Address: [address] [place] [address] Performed By: #### A LLBG ####[facility] [id number] [place] [address] [place] Glucose [Mass/Vol] 124 mg/dL High 60-105 [facility] Comment on above: Order Comment: Speci men Type: ARTERIAL BLOOD SPECIMENOrdering Facility: [facility] Address: [address] [place] [address] Performed By: #### A LLBG ####[facility] [id number] [place] [address] [place] HCO3 (Bld) [Moles/Vol] 29 mmol/L High 22-26 [facility] Comment on above: Order Comment: Speci men Type: ARTERIAL BLOOD SPECIMENOrdering Facility: [facility] Address: [address] [place] [address] Performed By: #### A LLBG ####[facility] [id number] [place] [address] [place] Hematocrit (Bld) [Volume fraction] 31.2 % Low 39.0-51.0 [facility] Comment on above: Order Comment: Speci men Type: ARTERIAL BLOOD SPECIMENOrdering Facility: [facility] Address: [address] [place] [address] Performed By: #### A LLBG ####[facility] [id number] [place] [address] [place] Hemoglobin (Bld) [Mass/Vol] 10.1 g/dL Low 13.0-17.0 [facility] Comment on above: Order Comment: Speci men Type: ARTERIAL BLOOD SPECIMENOrdering Facility: [facility] Address: [address] [place] [address] Performed By: #### A LLBG ####[facility] [id number] [place] [address] [place] Lactate [Moles/Vol] 0.9 mmol/L Normal 0.5-2.2 [facility] Comment on above: Order Comment: Speci men Type: ARTERIAL BLOOD SPECIMENOrdering Facility: [facility] Address: [address] [place] [address] Performed By: #### A LLBG ####[facility] [id number] [place] [address] [place] Methemoglobin (Bld) [Mass fraction] 0.9 % Normal 0.0-1.5 [facility] Comment on above: Order Comment: Speci men Type: ARTERIAL BLOOD SPECIMENOrdering Facility: [facility] Address: [address] [place] [address] Performed By: #### A LLBG ####[facility] [id number] [place] [address] [place] Oxygen (Bld) [Partial pressure] 148 mm Hg High 85-95 [facility] Comment on above: Order Comment: Speci men Type: ARTERIAL BLOOD SPECIMENOrdering Facility: [facility] Address: [address] [place] [address] Performed By: #### A LLBG ####[facility] [id number] [address] [id number] [address] [place] Oxyhemoglobin (BldA) [Mass fraction] 97 % Normal 95-98 [facility] Comment on above: Order Comment: Speci men Type: ARTERIAL BLOOD SPECIMENOrdering Facility: [facility] Address: [address] [place] [address] Performed By: #### A LLBG ####[facility] [id number] [place] [address] [place] pH (Bld) 7.43 [pH] Normal 7.35-7.45 [facility] Comment on above: Order Comment: Speci men Type: ARTERIAL BLOOD SPECIMENOrdering Facility: [facility] Address: [address] [place] [address] Performed By: #### A LLBG ####[facility] [id number] [place] [address] [place] Sodium [Moles/Vol] 138 mmol/L Normal 136-144 [facility] Comment on above: Order Comment: Speci men Type: ARTERIAL BLOOD SPECIMENOrdering Facility: [facility] Address: [address] [place] [address] Performed By: #### A LLBG ####[facility] [id number] [place] [address] [place] CASE MANAGEMon 01-26-2024 CASE MANAGEM Normal [facility] CBC panel Auto (Bld)on 01-25 Erythrocyte distribution width (RBC) [Ratio] 15.5 % High 11.5-15.0 [facility] Comment on above: Order Comment: Speci men Type: BLOOD SPECIMENOrdering Facility: [facility] Address: [address] [place] [address] Performed By: #### 5 8410-2 ####[facility] [id number] [place] [address] [place] Hematocrit (Bld) [Volume fraction] 30.8 % Low 39.0-51.0 [facility] Comment on above: Order Comment: Speci men Type: BLOOD SPECIMENOrdering Facility: [facility] Address: [address] [place] [address] Performed By: #### 5 8410-2 ####[facility] [id number] [place] [address] [place] MCH (RBC) [Entitic mass] 28.2 pg Normal 26.0-34.0 [facility] Comment on above: Order Comment: Speci men Type: BLOOD SPECIMENOrdering Facility: [facility] Address: [address] [place] [address] Performed By: #### 5 8410-2 ####[facility] [id number] [place] [address] [place] MCHC (RBC) [Mass/Vol] 32.5 g/dL Normal 30.5-36.0 [facility] Comment on above: Order Comment: Speci men Type: BLOOD SPECIMENOrdering Facility: [facility] Address: [address] [place] [address] Performed By: #### 5 8410-2 ####[facility] [id number] [place] [address] [place] MCV (RBC) [Entitic vol] 87.0 fL Normal 80.0-100.0 [facility] Comment on above: Order Comment: Speci men Type: BLOOD SPECIMENOrdering Facility: [facility] Address: [address] [place] [address] Performed By: #### 5 8410-2 ####[facility] [id number] [place] [address] [place] Nucleated RBC (Bld) [#/Vol] 10*3/uL Normal <0.01 [facility] Comment on above: Order Comment: Speci men Type: BLOOD SPECIMENOrdering Facility: [facility] Address: [address] [place] [address] Performed By: #### 5 8410-2 ####[facility] [id number] [place] [address] [place] Platelet mean volume (Bld) [Entitic vol] 11.1 fL Normal 9.0-12.7 [facility] Comment on above: Order Comment: Speci men Type: BLOOD SPECIMENOrdering Facility: [facility] Address: [address] [place] [address] Performed By: #### 5 8410-2 ####[facility] [id number] [place] [address] [place] Platelets (Bld) [#/Vol] 108 10*3/uL Low 150-400 [facility] Comment on above: Order Comment: Speci men Type: BLOOD SPECIMENOrdering Facility: [facility] Address: [address] [place] [address] Result Comment: Resu lts checked and verified.No clot detected. Performed By: #### 5 8410-2 ####[facility] [id number] [place] [address] [place] RBC (Bld) [#/Vol] 3.54 10*6/uL Low 4.20-6.00 [facility] Comment on above: Order Comment: Speci men Type: BLOOD SPECIMENOrdering Facility: [facility] Address: [address] [place] [address] Performed By: #### 5 8410-2 ####[facility] [id number] [place] [address] [place] WBC (Bld) [#/Vol] 12.52 10*3/uL High 3.70-11.00 [facility] Comment on above: Order Comment: Speci men Type: BLOOD SPECIMENOrdering Facility: [facility] Address: [address] [place] [address] Performed By: #### 5 8410-2 ####[facility] [id number] [address] [address] [place] Comprehensive metabolic 2000 panelon 01-26-2024 Albumin [Mass/Vol] 4.1 g/dL Normal 3.9-4.9 [facility] Comment on above: Order Comment: Speci men Type: BLOOD SPECIMENOrdering Facility: [facility] Address: [address] [place] [address] Performed By: #### 2 4323-8 ####[facility] [id number] [place] [address] [place] ALP [Catalytic activity/Vol] 45 U/L Normal 38-113 [facility] Comment on above: Order Comment: Speci men Type: BLOOD SPECIMENOrdering Facility: [facility] Address: [address] [place] [address] Performed By: #### 2 4323-8 ####[facility] [id number] [place] [address] [place] ALT [Catalytic activity/Vol] 15 U/L Normal 10-54 [facility] Comment on above: Order Comment: Speci men Type: BLOOD SPECIMENOrdering Facility: [facility] Address: [address] [place] [address] Performed By: #### 2 4323-8 ####[facility] [id number] [place] [address] [place] Anion gap [Moles/Vol] 13 mmol/L Normal 8-15 [facility] Comment on above: Order Comment: Speci men Type: BLOOD SPECIMENOrdering Facility: [facility] Address: [address] [place] [address] Performed By: #### 2 4323-8 ####[facility] [id number] [place] [id number] [place] AST [Catalytic activity/Vol] 60 U/L High 14-40 [facility] Comment on above: Order Comment: Speci men Type: BLOOD SPECIMENOrdering Facility: [facility] Address: [address] [place] [id number] Performed By: #### 2 4323-8 ####[facility] [id number] [place] [id number] [place] Bilirubin [Mass/Vol] 0.9 mg/dL Normal 0.2-1.3 [facility] Comment on above: Order Comment: Speci men Type: BLOOD SPECIMENOrdering Facility: [facility] Address: [address] [place] [address] Performed By: #### 2 4323-8 ####[facility] [id number] [place] [address] [place] Calcium [Mass/Vol] 9.0 mg/dL Normal 8.5-10.2 [facility] Comment on above: Order Comment: Speci men Type: BLOOD SPECIMENOrdering Facility: [facility] Address: [address] [place] [address] Performed By: #### 2 4323-8 ####[facility] [id number] [place] [address] [place] Chloride [Moles/Vol] 100 mmol/L Normal 98-107 [facility] Comment on above: Order Comment: Speci men Type: BLOOD SPECIMENOrdering Facility: [facility] Address: [address] [place] [address] Performed By: #### 2 4323-8 ####[facility] [id number] [place] [id number] [place] CO2 [Moles/Vol] 27 mmol/L Normal 22-30 [facility] Comment on above: Order Comment: Speci men Type: BLOOD SPECIMENOrdering Facility: [facility] Address: [address] [place], [place] [address] Performed By: #### 2 4323-8 ####[facility] [id number] [place] [address] [place] Creatinine [Mass/Vol] 1.02 mg/dL Normal 0.73-1.22 [facility] Comment on above: Order Comment: Jeison parry Type: BLOOD SPECIMENOrdering Facility: [facility] Address: [address] [place] [address] Performed By: #### 2 4323-8 ####[facility] [id number] [place] [address] [place] Creatinine and Glomerular filtration rate.predicted panel (S/P/Bld) 81 mL/min/1.73m??? Normal >=60 [facility] Comment on above: Order Comment: Jeison parry Type: BLOOD SPECIMENOrdering Facility: [facility] Address: [address] [place] [address] Result Comment: Talisha mated Glomerular Filtration Rate (eGFR) is calculated using the 2020 CKD-EPI creatinine equation. This equation utilizes serum creatinine, sex, and age as parameters. The creatinine assay has traceable calibration to isotope dilution-mass spectrometry. Refer to KDIGO guidelines for clinical interpretation. In patients with unstable renal function, e.g. those with acute kidney injury, the eGFR may not accurately reflect actual GFR. Performed By: #### 2 4323-8 ####[facility] [id number] [place] [address] [place] Glucose [Mass/Vol] 119 mg/dL High 74-99 [facility] Comment on above: Order Comment: Jeison parry Type: BLOOD SPECIMENOrdering Facility: [facility] Address: [address] [place] [address] Result Comment: The [place] [employer] (ADA) provides guidance for cutoff values for fasting glucose and random glucose. The ADA defines fasting as no caloric intake for at least 8 hours. Fasting plasma glucose results between 100 to 125 mg/dL indicate increased risk for diabetes (prediabetes).Fasting plasma glucose results greater than or equal to 126 mg/dL meet the criteria for diagnosis of diabetes. In the absence of unequivocal hyperglycemia, results should be confirmed by repeat testing. In a patient with classic symptoms of hyperglycemia or hyperglycemic crisis, random plasma glucose results greater than or equal to 200 mg/dL meet the criteria for diagnosis of diabetes.Reference: Standards of Medical Care in Diabetes 2016, [place] [employer]. Diabetes Care. 2016.39(Suppl 1). Performed By: #### 2 4323-8 ####[facility] [id number] [place] [address] [place] Protein [Mass/Vol] 6.4 g/dL Normal 6.3-8.0 [facility] Comment on above: Order Comment: Speci men Type: BLOOD SPECIMENOrdering Facility: [facility] Address: [address] [place] [address] Performed By: #### 2 4323-8 ####[facility] [id number] [place] [address] [place] Urea nitrogen [Mass/Vol] 35 mg/dL High 9-24 [facility] Comment on above: Order Comment: Speci men Type: BLOOD SPECIMENOrdering Facility: [facility] Address: [address] [place] [address] Performed By: #### 2 4323-8 ####[facility] [id number] [place] [address] [place] Gas + CO Pnl BldVon 01-26-20 Body temperature 98.6 [degF] Normal [facility] Comment on above: Order Comment: Speci men Type: VENOUS BLOOD SPECIMENOrdering Facility: [facility] Address: [address] [place] [address] Performed By: #### 2 4344-4 ####[facility] [id number] [address] [place] Order Comment: Speci men Type: ARTERIAL BLOOD SPECIMENOrdering Facility: [facility] Address: [address] [place] [address] Performed By: #### A LLBG ####[facility] [id number] [place] [address] [place] Lactate [Moles/Vol] 0.8 mmol/L Normal 0.5-2.2 [facility] Comment on above: Order Comment: Speci men Type: VENOUS BLOOD SPECIMENOrdering Facility: [facility] Address: [address] [place] [address] Performed By: #### 2 4344-4 ####[facility] [id number] [place] [address] [place] Order Comment: Speci men Type: ARTERIAL BLOOD SPECIMENOrdering Facility: [facility] Address: [address] [place] [address] Performed By: #### A LLBG ####[facility] [id number] [place] [address] [place] Methemoglobin (Bld) [Mass fraction] 0.6 % Normal 0.0-1.5 [facility] Comment on above: Order Comment: Speci men Type: VENOUS BLOOD SPECIMENOrdering Facility: [facility] Address: [address] [place] [address] Performed By: #### 2 4344-4 ####[facility] [id number] [address] [place] Order Comment: Speci men Type: ARTERIAL BLOOD SPECIMENOrdering Facility: [facility] Address: [address] [place] [address] Performed By: #### A LLBG ####[facility] [id number] [place] [address] [place] O2 THERAPY NC = Nasal Cannula Normal [facility] Comment on above: Order Comment: Speci men Type: VENOUS BLOOD SPECIMENOrdering Facility: [facility] Address: [address] [place] [address] Performed By: #### 2 4344-4 ####[facility] [id number] [facility] [place] [address] [place] Order Comment: Speci men Type: ARTERIAL BLOOD SPECIMENOrdering Facility: [facility] Address: [address] [place] [address] Performed By: #### A LLBG ####[facility] [id number] [place] [address] [place] Body temperature 98.6 [degF] Normal [facility] Comment on above: Order Comment: Speci men Type: VENOUS BLOOD SPECIMENOrdering Facility: [facility] Address: [address] [place] [address] Performed By: #### 2 4344-4 ####[facility] [id number] [place] [address] [place] Order Comment: Speci men Type: ARTERIAL BLOOD SPECIMENOrdering Facility: [facility] Address: [address] [place] [address] Performed By: #### A LLBG ####[facility] [id number] [place] [address] [place] Hemoglobin (Bld) [Mass/Vol] 10.0 g/dL Low 13.0-17.0 [facility] Comment on above: Order Comment: Speci men Type: VENOUS BLOOD SPECIMENOrdering Facility: [facility] Address: [address] [place] [address] Performed By: #### 2 4344-4 ####[facility] [id number] [place] [address] [place] Order Comment: Speci men Type: BLOOD SPECIMENOrdering Facility: [facility] Address: [address] [place] [address] Performed By: #### 5 8410-2 ####[facility] [id number] [place] [address] [place] LITERS 3 Liters/min Normal [facility] Comment on above: Order Comment: Speci men Type: VENOUS BLOOD SPECIMENOrdering Facility: [facility] Address: [address] [place] [address] Performed By: #### 2 4344-4 ####[facility] [id number] [address] [address] [place] Order Comment: Speci men Type: ARTERIAL BLOOD SPECIMENOrdering Facility: [facility] Address: [address] [place] [address] Performed By: #### A LLBG ####[facility] [id number] [place] [address] [place] O2 THERAPY NC = Nasal Cannula Normal [facility] Comment on above: Order Comment: Speci men Type: VENOUS BLOOD SPECIMENOrdering Facility: [facility] Address: [address] [place] [address] Performed By: #### 2 4344-4 ####[facility] [id number] [place] [address] [place] Order Comment: Speci men Type: ARTERIAL BLOOD SPECIMENOrdering Facility: [facility] Address: [address] [place] [address] Performed By: #### A LLBG ####[facility] [id number] [place] [address] [place] Potassium [Moles/Vol] 4.4 mmol/L Normal 3.5-5.0 [facility] Comment on above: Order Comment: Speci men Type: VENOUS BLOOD SPECIMENOrdering Facility: [facility] Address: [address] [place] [address] Performed By: #### 2 4344-4 ####[facility] [id number] [place] [id number] [place] Order Comment: Speci men Type: ARTERIAL BLOOD SPECIMENOrdering Facility: [facility] Address: [address] [place] [address] Performed By: #### A LLBG ####[facility] [id number] [place] [address] [place] Gas and Carbon monoxide pane l (BldV)on 01-26-2024 Base excess Calc (BldV) [Moles/Vol] 4 mmol/L High 0-2 [facility] Comment on above: Order Comment: Speci men Type: VENOUS BLOOD SPECIMENOrdering Facility: [facility] Address: [address] [place] [address] Performed By: #### 2 4344-4 ####[facility] [id number] [place] [address] [place] Calcium.ionized (Bld) [Mass/Vol] 1.16 mmol/L Normal 1.08-1.30 [facility] Comment on above: Order Comment: Speci men Type: VENOUS BLOOD SPECIMENOrdering Facility: [facility] Address: [address] [place] [address] Performed By: #### 2 4344-4 ####[facility] [id number] [place] [address] [place] Calcium.ionized adjusted to pH 7.4 (BldA) [Moles/Vol] 1.13 mmol/L Normal 1.08-1.30 [facility] Comment on above: Order Comment: Speci men Type: VENOUS BLOOD SPECIMENOrdering Facility: [facility] Address: [address] [place] [address] Performed By: #### 2 4344-4 ####[facility] [id number] [place] [address] [place] Carboxyhemoglobin (BldV) [Mass fraction] 1.6 % Normal 0.0-2.0 [facility] Comment on above: Order Comment: Speci men Type: VENOUS BLOOD SPECIMENOrdering Facility: [facility] Address: [address] [place] [address] Result Comment: Carb oxyhemoglobin Reference Range for Smokers: 2.0-8.0% Performed By: #### 2 4344-4 ####[facility] [id number] [place] [address] [place] CO2 (BldV) [Partial pressure] 55 mm[Hg] Normal 42-55 [facility] Comment on above: Order Comment: Speci men Type: VENOUS BLOOD SPECIMENOrdering Facility: [facility] Address: [address] [place] [address] Performed By: #### 2 4344-4 ####[facility] [id number] [place] [address] [place] Glucose [Mass/Vol] 116 mg/dL High 60-105 [facility] Comment on above: Order Comment: Speci men Type: VENOUS BLOOD SPECIMENOrdering Facility: [facility] Address: [address] [place] [address] Performed By: #### 2 4344-4 ####[facility] [id number] [place] [address] [place] HCO3 (Bld) [Moles/Vol] 30 mmol/L High 24-28 [facility] Comment on above: Order Comment: Speci men Type: VENOUS BLOOD SPECIMENOrdering Facility: [facility] Address: [address] [place] [address] Performed By: #### 2 4344-4 ####[facility] [id number] [place] [address] [place] Hematocrit (Bld) [Volume fraction] 29.8 % Low 39.0-51.0 [facility] Comment on above: Order Comment: Speci men Type: VENOUS BLOOD SPECIMENOrdering Facility: [facility] Address: [address] [place] [address] Performed By: #### 2 4344-4 ####[facility] [id number] [place] [address] [place] Hemoglobin (Bld) [Mass/Vol] 9.6 g/dL Low 13.0-17.0 [facility] Comment on above: Order Comment: Speci men Type: VENOUS BLOOD SPECIMENOrdering Facility: [facility] Address: [address] [place] [address] Performed By: #### 2 4344-4 ####[facility] [id number] [place] [address] [place] Oxygen (BldV) [Partial pressure] 44 mm[Hg] Normal 35-45 [facility] Comment on above: Order Comment: Speci men Type: VENOUS BLOOD SPECIMENOrdering Facility: [facility] Address: [address] [place] [address] Performed By: #### 2 4344-4 ####[facility] [id number] [place] [address] [place] Oxygen saturation in Venous blood 75 % Normal 60-85 [facility] Comment on above: Order Comment: Speci men Type: VENOUS BLOOD SPECIMENOrdering Facility: [facility] Address: [address] [place] [address] Performed By: #### 2 4344-4 ####[facility] [id number] [place] [address] [place] Oxyhemoglobin (BldV) [Mass fraction] 73 % Normal 60-85 [facility] Comment on above: Order Comment: Speci men Type: VENOUS BLOOD SPECIMENOrdering Facility: [facility] Address: [address] [place] [address] Performed By: #### 2 4344-4 ####[facility] [id number] [place] [id number] [place] pH (BldV) 7.35 [pH] Normal 7.32-7.42 [facility] Comment on above: Order Comment: Speci men Type: VENOUS BLOOD SPECIMENOrdering Facility: [facility] Address: [address] [place] [address] Performed By: #### 2 4344-4 ####[facility] [id number] [place] [address] [place] Potassium [Moles/Vol] 4.2 mmol/L Normal 3.5-5.0 [facility] Comment on above: Order Comment: Speci men Type: VENOUS BLOOD SPECIMENOrdering Facility: [facility] Address: [address] [place] [address] Performed By: #### 2 4344-4 ####[facility] [id number] [place] [address] [place] Sodium [Moles/Vol] 138 mmol/L Normal 136-144 [facility] Comment on above: Order Comment: Speci men Type: VENOUS BLOOD SPECIMENOrdering Facility: [facility] Address: [address] [place] [address] Performed By: #### 2 4344-4 ####[facility] [id number] [place] [address] [place] Base excess Calc (BldV) [Moles/Vol] 5 mmol/L High 0-2 [facility] Comment on above: Order Comment: Speci men Type: VENOUS BLOOD SPECIMENOrdering Facility: [facility] Address: [address] [place] [address] Performed By: #### 2 4344-4 ####[facility] [id number] [place] [address] [place] Calcium.ionized (Bld) [Mass/Vol] 1.19 mmol/L Normal 1.08-1.30 [facility] Comment on above: Order Comment: Speci men Type: VENOUS BLOOD SPECIMENOrdering Facility: [facility] Address: [address] [place] [address] Performed By: #### 2 4344-4 ####[facility] [id number] [place] [address] [place] Calcium.ionized adjusted to pH 7.4 (BldA) [Moles/Vol] 1.17 mmol/L Normal 1.08-1.30 [facility] Comment on above: Order Comment: Speci men Type: VENOUS BLOOD SPECIMENOrdering Facility: [facility] Address: [address] [place] [address] Performed By: #### 2 4344-4 ####[facility] [id number] [place] [address] [place] Carboxyhemoglobin (BldV) [Mass fraction] 1.7 % Normal 0.0-2.0 [facility] Comment on above: Order Comment: Speci men Type: VENOUS BLOOD SPECIMENOrdering Facility: [facility] Address: [address] [place] [address] Result Comment: Carb oxyhemoglobin Reference Range for Smokers: 2.0-8.0% Performed By: #### 2 4344-4 ####[facility] [id number] [place] [address] [place] CO2 (BldV) [Partial pressure] 55 mm[Hg] Normal 42-55 [facility] Comment on above: Order Comment: Speci men Type: VENOUS BLOOD SPECIMENOrdering Facility: [facility] Address: [address] [place] [address] Performed By: #### 2 4344-4 ####[facility] [id number] [place] [address] [place] Glucose [Mass/Vol] 123 mg/dL High 60-105 [facility] Comment on above: Order Comment: Speci men Type: VENOUS BLOOD SPECIMENOrdering Facility: [facility] Address: [address] [place] [address] Performed By: #### 2 4344-4 ####[facility] [id number] [place] [address] [place] HCO3 (Bld) [Moles/Vol] 31 mmol/L High 24-28 [facility] Comment on above: Order Comment: Speci men Type: VENOUS BLOOD SPECIMENOrdering Facility: [facility] Address: [address] [place] [address] Performed By: #### 2 4344-4 ####[facility] [id number] [place] [address] [place] Hematocrit (Bld) [Volume fraction] 31.0 % Low 39.0-51.0 [facility] Comment on above: Order Comment: Speci men Type: VENOUS BLOOD SPECIMENOrdering Facility: [facility] Address: [address] [place] [address] Performed By: #### 2 4344-4 ####[facility] [id number] [place] [address] [place] Lactate [Moles/Vol] 1.0 mmol/L Normal 0.5-2.2 [facility] Comment on above: Order Comment: Speci men Type: VENOUS BLOOD SPECIMENOrdering Facility: [facility] Address: [address] [place] [address] Performed By: #### 2 4344-4 ####[facility] [id number] [place] [address] [place] Methemoglobin (Bld) [Mass fraction] 0.7 % Normal 0.0-1.5 [facility] Comment on above: Order Comment: Speci men Type: VENOUS BLOOD SPECIMENOrdering Facility: [facility] Address: [address] [place] [address] Performed By: #### 2 4344-4 ####[facility] [id number] [place] [address] [place] Oxygen (BldV) [Partial pressure] 44 mm[Hg] Normal 35-45 [facility] Comment on above: Order Comment: Speci men Type: VENOUS BLOOD SPECIMENOrdering Facility: [facility] Address: [address] [place] [address] Performed By: #### 2 4344-4 ####[facility] [id number] [address] [address] [place] Oxygen saturation in Venous blood 76 % Normal 60-85 [facility] Comment on above: Order Comment: Speci men Type: VENOUS BLOOD SPECIMENOrdering Facility: [facility] Address: [address] [place] [address] Performed By: #### 2 4344-4 ####[facility] [id number] [place] [address] [place] Oxyhemoglobin (BldV) [Mass fraction] 74 % Normal 60-85 [facility] Comment on above: Order Comment: Speci men Type: VENOUS BLOOD SPECIMENOrdering Facility: [facility] Address: [address] [place] [address] Performed By: #### 2 4344-4 ####[facility] [id number] [place] [address] [place] pH (BldV) 7.37 [pH] Normal 7.32-7.42 [facility] Comment on above: Order Comment: Speci men Type: VENOUS BLOOD SPECIMENOrdering Facility: [facility] Address: [address] [place], [place] [address] Performed By: #### 2 4344-4 ####[facility] [id number] [place] [id number] [place] Sodium [Moles/Vol] 139 mmol/L Normal 136-144 [facility] Comment on above: Order Comment: Speci men Type: VENOUS BLOOD SPECIMENOrdering Facility: [facility] Address: [address] [place], [place] [address] Performed By: #### 2 4344-4 ####[facility] [id number] [place] [address] [place] THERAPY NTon 01-26-2024 THERAPY NT Normal [facility] THERAPY NT Normal [facility] XR CHEST 1V FRONTAL PORTon 1 XR CHEST 1V FRONTAL PORT Normal [facility] ARTERIAL BLOOD GASESon 01-24 Base excess Calc (Bld) [Moles/Vol] 5 mmol/L High 0-2 [facility] Comment on above: Order Comment: Speci men Type: ARTERIAL BLOOD SPECIMENOrdering Facility: [facility] Address: [address] [place] [address] Performed By: #### A LLBG ####[facility] [id number] [place] [address] [place] Body temperature 98.6 [degF] Normal [facility] Comment on above: Order Comment: Speci men Type: ARTERIAL BLOOD SPECIMENOrdering Facility: [facility] Address: [address] [place] [address] Performed By: #### A LLBG ####[facility] [id number] [place] [address] [place] Order Comment: Speci men Type: VENOUS BLOOD SPECIMENOrdering Facility: [facility] Address: [address] [place] [address] Performed By: #### 2 4344-4 ####[facility] [id number] [place] [address] [place] Calcium.ionized (Bld) [Mass/Vol] 1.18 mmol/L Normal 1.08-1.30 [facility] Comment on above: Order Comment: Speci men Type: ARTERIAL BLOOD SPECIMENOrdering Facility: [facility] Address: [address] [place] [address] Performed By: #### A LLBG ####[facility] [id number] [place] [address] [place] Order Comment: Speci men Type: VENOUS BLOOD SPECIMENOrdering Facility: [facility] Address: [address] [place] [address] Performed By: #### 2 4344-4 ####[facility] [id number] [place] [address] [place] Calcium.ionized adjusted to pH 7.4 (BldA) [Moles/Vol] 1.19 mmol/L Normal 1.08-1.30 [facility] Comment on above: Order Comment: Speci men Type: ARTERIAL BLOOD SPECIMENOrdering Facility: [facility] Address: [address] [place] [address] Performed By: #### A LLBG ####[facility] [id number] [place] [address] [place] Carboxyhemoglobin (BldA) [Mass fraction] 1.7 % Normal 0.0-2.0 [facility] Comment on above: Order Comment: Speci men Type: ARTERIAL BLOOD SPECIMENOrdering Facility: [facility] Address: [address] [place] [address] Result Comment: Carb oxyhemoglobin Reference Range for Smokers: 2.0-8.0% Performed By: #### A LLBG ####[facility] [id number] [place] [address] [place] CO2 (Bld) [Partial pressure] 46 mm Hg Normal 36-46 [facility] Comment on above: Order Comment: Speci men Type: ARTERIAL BLOOD SPECIMENOrdering Facility: [facility] Address: [address] [place] [address] Performed By: #### A LLBG ####[facility] [id number] [place] [address] [place] Glucose [Mass/Vol] 125 mg/dL High 60-105 [facility] Comment on above: Order Comment: Speci men Type: ARTERIAL BLOOD SPECIMENOrdering Facility: [facility] Address: [address] [place] [address] Performed By: #### A LLBG ####[facility] [id number] [place] [address] [place] HCO3 (Bld) [Moles/Vol] 30 mmol/L High 22-26 [facility] Comment on above: Order Comment: Speci men Type: ARTERIAL BLOOD SPECIMENOrdering Facility: [facility] Address: [address] [place] [address] Performed By: #### A LLBG ####[facility] [id number] [place] [address] [place] Hematocrit (Bld) [Volume fraction] 32.3 % Low 39.0-51.0 [facility] Comment on above: Order Comment: Speci men Type: ARTERIAL BLOOD SPECIMENOrdering Facility: [facility] Address: [address] [place] [address] Performed By: #### A LLBG ####[facility] [id number] [place] [address] [place] Hemoglobin (Bld) [Mass/Vol] 10.5 g/dL Low 13.0-17.0 [facility] Comment on above: Order Comment: Speci men Type: ARTERIAL BLOOD SPECIMENOrdering Facility: [facility] Address: [address] [place] [address] Performed By: #### A LLBG ####[facility] [id number] [place] [address] [place] Lactate [Moles/Vol] 1.3 mmol/L Normal 0.5-2.2 [facility] Comment on above: Order Comment: Speci men Type: ARTERIAL BLOOD SPECIMENOrdering Facility: [facility] Address: [address] [place] [address] Performed By: #### A LLBG ####[facility] [id number] [place] [address] [place] LITERS 4 Liters/min Normal [facility] Comment on above: Order Comment: Speci men Type: ARTERIAL BLOOD SPECIMENOrdering Facility: [facility] Address: [address] [place] [address] Performed By: #### A LLBG ####[facility] [id number] [place] [address] [place] Methemoglobin (Bld) [Mass fraction] 0.7 % Normal 0.0-1.5 [facility] Comment on above: Order Comment: Speci men Type: ARTERIAL BLOOD SPECIMENOrdering Facility: [facility] Address: [address] [place] [address] Performed By: #### A LLBG ####[facility] [id number] [place] [address] [place] O2 THERAPY Positive Normal [facility] Comment on above: Order Comment: Speci men Type: ARTERIAL BLOOD SPECIMENOrdering Facility: [facility] Address: [address] [place] [address] Performed By: #### A LLBG ####[facility] [id number] [place] [address] [place] Order Comment: Speci men Type: VENOUS BLOOD SPECIMENOrdering Facility: [facility] Address: [address] [place] [address] Performed By: #### 2 4344-4 ####[facility] [id number] [place] [address] [place] Oxygen (Bld) [Partial pressure] 109 mm Hg High 85-95 [facility] Comment on above: Order Comment: Speci men Type: ARTERIAL BLOOD SPECIMENOrdering Facility: [facility] Address: [address] [place] [address] Performed By: #### A LLBG ####[facility] [id number] [place] [address] [place] Oxyhemoglobin (BldA) [Mass fraction] 96 % Normal 95-98 [facility] Comment on above: Order Comment: Speci men Type: ARTERIAL BLOOD SPECIMENOrdering Facility: [facility] Address: [address] [place] [id number] Performed By: #### A LLBG ####[facility] [id number] [address] [address] [place] pH (Bld) 7.42 [pH] Normal 7.35-7.45 [facility] Comment on above: Order Comment: Speci men Type: ARTERIAL BLOOD SPECIMENOrdering Facility: [facility] Address: [address] [place] [address] Performed By: #### A LLBG ####[facility] [id number] [place] [address] [place] Potassium [Moles/Vol] 4.6 mmol/L Normal 3.5-5.0 [facility] Comment on above: Order Comment: Speci men Type: ARTERIAL BLOOD SPECIMENOrdering Facility: [facility] Address: [address] [place], [place] [address] Performed By: #### A LLBG ####[facility] [id number] [place] [address] [place] Sodium [Moles/Vol] 139 mmol/L Normal 136-144 [facility] Comment on above: Order Comment: Speci men Type: ARTERIAL BLOOD SPECIMENOrdering Facility: [facility] Address: [address] [place], [place] [address] Performed By: #### A LLBG ####[facility] [id number] [place] [address] [place] Order Comment: Speci men Type: VENOUS BLOOD SPECIMENOrdering Facility: [facility] Address: [address] [place], [place] [address] Performed By: #### 2 4344-4 ####[facility] [id number] [place] [address] [place] Base excess Calc (Bld) [Moles/Vol] 5 mmol/L High 0-2 [facility] Comment on above: Order Comment: Speci men Type: ARTERIAL BLOOD SPECIMENOrdering Facility: [facility] Address: [address] [place] [address] Performed By: #### A LLBG ####[facility] [id number] [place] [address] [place] Calcium.ionized adjusted to pH 7.4 (BldA) [Moles/Vol] 1.18 mmol/L Normal 1.08-1.30 [facility] Comment on above: Order Comment: Speci men Type: ARTERIAL BLOOD SPECIMENOrdering Facility: [facility] Address: [address] [place] [address] Performed By: #### A LLBG ####[facility] [id number] [place] [address] [place] Carboxyhemoglobin (BldA) [Mass fraction] 1.1 % Normal 0.0-2.0 [facility] Comment on above: Order Comment: Speci men Type: ARTERIAL BLOOD SPECIMENOrdering Facility: [facility] Address: [address] [place] [address] Result Comment: Carb oxyhemoglobin Reference Range for Smokers: 2.0-8.0% Performed By: #### A LLBG ####[facility] [id number] [place] [address] [place] CO2 (Bld) [Partial pressure] 46 mm Hg Normal 36-46 [facility] Comment on above: Order Comment: Speci men Type: ARTERIAL BLOOD SPECIMENOrdering Facility: [facility] Address: [address] [place] [address] Performed By: #### A LLBG ####[facility] [id number] [place] [address] [place] Glucose [Mass/Vol] 132 mg/dL High 60-105 [facility] Comment on above: Order Comment: Speci men Type: ARTERIAL BLOOD SPECIMENOrdering Facility: [facility] Address: [address] [place] [address] Performed By: #### A LLBG ####[facility] [id number] [place] [address] [place] HCO3 (Bld) [Moles/Vol] 29 mmol/L High 22-26 [facility] Comment on above: Order Comment: Speci men Type: ARTERIAL BLOOD SPECIMENOrdering Facility: [facility] Address: [address] [place] [address] Performed By: #### A LLBG ####[facility] [id number] [place] [address] [place] Hematocrit (Bld) [Volume fraction] 33.5 % Low 39.0-51.0 [facility] Comment on above: Order Comment: Speci men Type: ARTERIAL BLOOD SPECIMENOrdering Facility: [facility] Address: [address] [place] [address] Performed By: #### A LLBG ####[facility] [id number] [place] [address] [place] Hemoglobin (Bld) [Mass/Vol] 10.8 g/dL Low 13.0-17.0 [facility] Comment on above: Order Comment: Speci men Type: ARTERIAL BLOOD SPECIMENOrdering Facility: [facility] Address: [address] [place] [address] Performed By: #### A LLBG ####[facility] [id number] [place] [address] [place] Lactate [Moles/Vol] 1.2 mmol/L Normal 0.5-2.2 [facility] Comment on above: Order Comment: Speci men Type: ARTERIAL BLOOD SPECIMENOrdering Facility: [facility] Address: [address] [place] [address] Performed By: #### A LLBG ####[facility] [id number] [place] [address] [place] Methemoglobin (Bld) [Mass fraction] 0.9 % Normal 0.0-1.5 [facility] Comment on above: Order Comment: Speci men Type: ARTERIAL BLOOD SPECIMENOrdering Facility: [facility] Address: [address] [place] [address] Performed By: #### A LLBG ####[facility] [id number] [place] [address] [place] Oxygen (Bld) [Partial pressure] 142 mm Hg High 85-95 [facility] Comment on above: Order Comment: Speci men Type: ARTERIAL BLOOD SPECIMENOrdering Facility: [facility] Address: [address] [place] [address] Performed By: #### A LLBG ####[facility] [id number] [place] [address] [place] Oxyhemoglobin (BldA) [Mass fraction] 97 % Normal 95-98 [facility] Comment on above: Order Comment: Speci men Type: ARTERIAL BLOOD SPECIMENOrdering Facility: [facility] Address: [address] [place] [address] Performed By: #### A LLBG ####[facility] [id number] [place] [address] [place] pH (Bld) 7.42 [pH] Normal 7.35-7.45 [facility] Comment on above: Order Comment: Speci men Type: ARTERIAL BLOOD SPECIMENOrdering Facility: [facility] Address: [address] [place] [address] Performed By: #### A LLBG ####[facility] [id number] [place] [address] [place] Potassium [Moles/Vol] 4.4 mmol/L Normal 3.5-5.0 [facility] Comment on above: Order Comment: Speci men Type: ARTERIAL BLOOD SPECIMENOrdering Facility: [facility] Address: [address] [place] [address] Performed By: #### A LLBG ####[facility] [id number] [place] [address] [place] Base excess Calc (Bld) [Moles/Vol] 4 mmol/L High 0-2 [facility] Comment on above: Order Comment: Speci men Type: ARTERIAL BLOOD SPECIMENOrdering Facility: [facility] Address: [address] [place] [address] Performed By: #### A LLBG ####[facility] [id number] [place] [address] [place] Calcium.ionized (Bld) [Mass/Vol] 1.21 mmol/L Normal 1.08-1.30 [facility] Comment on above: Order Comment: Speci men Type: ARTERIAL BLOOD SPECIMENOrdering Facility: [facility] Address: [address] [place] [address] Performed By: #### A LLBG ####[facility] [id number] [place] [address] [place] Calcium.ionized adjusted to pH 7.4 (BldA) [Moles/Vol] 1.21 mmol/L Normal 1.08-1.30 [facility] Comment on above: Order Comment: Speci men Type: ARTERIAL BLOOD SPECIMENOrdering Facility: [facility] Address: [address] [place] [address] Performed By: #### A LLBG ####[facility] [id number] [place] [address] [place] Carboxyhemoglobin (BldA) [Mass fraction] 1.5 % Normal 0.0-2.0 [facility] Comment on above: Order Comment: Speci men Type: ARTERIAL BLOOD SPECIMENOrdering Facility: [facility] Address: [address] [place] [address] Result Comment: Carb oxyhemoglobin Reference Range for Smokers: 2.0-8.0% Performed By: #### A LLBG ####[facility] [id number] [place] [address] [place] CO2 (Bld) [Partial pressure] 48 mm Hg High 36-46 [facility] Comment on above: Order Comment: Speci men Type: ARTERIAL BLOOD SPECIMENOrdering Facility: [facility] Address: [address] [place] [address] Performed By: #### A LLBG ####[facility] [id number] [place] [address] [place] Glucose [Mass/Vol] 129 mg/dL High 60-105 [facility] Comment on above: Order Comment: Speci men Type: ARTERIAL BLOOD SPECIMENOrdering Facility: [facility] Address: [address] [place] [address] Performed By: #### A LLBG ####[facility] [id number] [place] [address] [place] HCO3 (Bld) [Moles/Vol] 29 mmol/L High 22-26 [facility] Comment on above: Order Comment: Speci men Type: ARTERIAL BLOOD SPECIMENOrdering Facility: [facility] Address: [address] [place] [address] Performed By: #### A LLBG ####[facility] [id number] [place] [address] [place] Hematocrit (Bld) [Volume fraction] 32.4 % Low 39.0-51.0 [facility] Comment on above: Order Comment: Speci men Type: ARTERIAL BLOOD SPECIMENOrdering Facility: [facility] Address: [address] [place] [address] Performed By: #### A LLBG ####[facility] [id number] [place] [address] [place] Hemoglobin (Bld) [Mass/Vol] 10.5 g/dL Low 13.0-17.0 [facility] Comment on above: Order Comment: Speci men Type: ARTERIAL BLOOD SPECIMENOrdering Facility: [facility] Address: [address] [place] [address] Performed By: #### A LLBG ####[facility] [id number] [place] [address] [place] Methemoglobin (Bld) [Mass fraction] 0.9 % Normal 0.0-1.5 [facility] Comment on above: Order Comment: Speci men Type: ARTERIAL BLOOD SPECIMENOrdering Facility: [facility] Address: [address] [place] [address] Performed By: #### A LLBG ####[facility] [id number] [place] [address] [place] Oxygen (Bld) [Partial pressure] 96 mm Hg High 85-95 [facility] Comment on above: Order Comment: Speci men Type: ARTERIAL BLOOD SPECIMENOrdering Facility: [facility] Address: [address] [place] [address] Performed By: #### A LLBG ####[facility] [id number] [place] [address] [place] Oxyhemoglobin (BldA) [Mass fraction] 96 % Normal 95-98 [facility] Comment on above: Order Comment: Speci men Type: ARTERIAL BLOOD SPECIMENOrdering Facility: [facility] Address: [address] [place] [address] Performed By: #### A LLBG ####[facility] [id number] [place] [id number] [place] pH (Bld) 7.40 [pH] Normal 7.35-7.45 [facility] Comment on above: Order Comment: Speci men Type: ARTERIAL BLOOD SPECIMENOrdering Facility: [facility] Address: [address] [place] [address] Performed By: #### A LLBG ####[facility] [id number] [place] [address] [place] Potassium [Moles/Vol] 4.5 mmol/L Normal 3.5-5.0 [facility] Comment on above: Order Comment: Speci men Type: ARTERIAL BLOOD SPECIMENOrdering Facility: [facility] Address: [address] [place] [address] Performed By: #### A LLBG ####[facility] [id number] [place] [address] [place] Sodium [Moles/Vol] 139 mmol/L Normal 136-144 [facility] Comment on above: Order Comment: Speci men Type: ARTERIAL BLOOD SPECIMENOrdering Facility: [facility] Address: [address] [place] [address] Performed By: #### A LLBG ####[facility] [id number] [place] [address] [place] Base excess Calc (Bld) [Moles/Vol] 4 mmol/L High 0-2 [facility] Comment on above: Order Comment: Speci men Type: ARTERIAL BLOOD SPECIMENOrdering Facility: [facility] Address: [address] [place] [address] Performed By: #### A LLBG ####[facility] [id number] [place] [address] [place] Body temperature 98.6 [degF] Normal [facility] Comment on above: Order Comment: Speci men Type: ARTERIAL BLOOD SPECIMENOrdering Facility: [facility] Address: [address] [place] [address] Performed By: #### A LLBG ####[facility] [id number] [place] [id number] [place] Calcium.ionized (Bld) [Mass/Vol] 1.20 mmol/L Normal 1.08-1.30 [facility] Comment on above: Order Comment: Speci men Type: ARTERIAL BLOOD SPECIMENOrdering Facility: [facility] Address: [address] [place] [address] Performed By: #### A LLBG ####[facility] [id number] [place] [address] [place] Calcium.ionized adjusted to pH 7.4 (BldA) [Moles/Vol] 1.21 mmol/L Normal 1.08-1.30 [facility] Comment on above: Order Comment: Speci men Type: ARTERIAL BLOOD SPECIMENOrdering Facility: [facility] Address: [address] [place] [address] Performed By: #### A LLBG ####[facility] [id number] [place] [address] [place] Carboxyhemoglobin (BldA) [Mass fraction] 1.6 % Normal 0.0-2.0 [facility] Comment on above: Order Comment: Speci men Type: ARTERIAL BLOOD SPECIMENOrdering Facility: [facility] Address: [address] [place] [address] Result Comment: Carb oxyhemoglobin Reference Range for Smokers: 2.0-8.0% Performed By: #### A LLBG ####[facility] [id number] [place] [address] [place] CO2 (Bld) [Partial pressure] 45 mm Hg Normal 36-46 [facility] Comment on above: Order Comment: Speci men Type: ARTERIAL BLOOD SPECIMENOrdering Facility: [facility] Address: [address] [place] [address] Performed By: #### A LLBG ####[facility] [id number] [place] [address] [place] Glucose [Mass/Vol] 130 mg/dL High 60-105 [facility] Comment on above: Order Comment: Speci men Type: ARTERIAL BLOOD SPECIMENOrdering Facility: [facility] Address: [address] [place] [address] Performed By: #### A LLBG ####[facility] [id number] [place] [address] [place] HCO3 (Bld) [Moles/Vol] 28 mmol/L High 22-26 [facility] Comment on above: Order Comment: Speci men Type: ARTERIAL BLOOD SPECIMENOrdering Facility: [facility] Address: [address] [place] [address] Performed By: #### A LLBG ####[facility] [id number] [place] [address] [place] Hematocrit (Bld) [Volume fraction] 32.1 % Low 39.0-51.0 [facility] Comment on above: Order Comment: Speci men Type: ARTERIAL BLOOD SPECIMENOrdering Facility: [facility] Address: [address] [place] [address] Performed By: #### A LLBG ####[facility] [id number] [place] [address] [place] Hemoglobin (Bld) [Mass/Vol] 10.4 g/dL Low 13.0-17.0 [facility] Comment on above: Order Comment: Speci men Type: ARTERIAL BLOOD SPECIMENOrdering Facility: [facility] Address: [address] [place] [address] Performed By: #### A LLBG ####[facility] [id number] [place] [address] [place] Lactate [Moles/Vol] 1.4 mmol/L Normal 0.5-2.2 [facility] Comment on above: Order Comment: Speci men Type: ARTERIAL BLOOD SPECIMENOrdering Facility: [facility] Address: [address] [place] [address] Performed By: #### A LLBG ####[facility] [id number] [place] [id number] [place] LITERS 3 Liters/min Normal [facility] Comment on above: Order Comment: Speci men Type: ARTERIAL BLOOD SPECIMENOrdering Facility: [facility] Address: [address] [place] [id number] Performed By: #### A LLBG ####[facility] [id number] [place] [address] [place] Methemoglobin (Bld) [Mass fraction] 0.9 % Normal 0.0-1.5 [facility] Comment on above: Order Comment: Speci men Type: ARTERIAL BLOOD SPECIMENOrdering Facility: [facility] Address: [address] [place] [address] Performed By: #### A LLBG ####[facility] [id number] [place] [address] [place] O2 THERAPY NC = Nasal Cannula Normal [facility] Comment on above: Order Comment: Speci men Type: ARTERIAL BLOOD SPECIMENOrdering Facility: [facility] Address: [address] [place], [place] [address] Performed By: #### A LLBG ####[facility] [id number] [place] [id number] [place] Oxygen (Bld) [Partial pressure] 155 mm Hg High 85-95 [facility] Comment on above: Order Comment: Speci men Type: ARTERIAL BLOOD SPECIMENOrdering Facility: [facility] Address: [address] [place] [id number] Performed By: #### A LLBG ####[facility] [id number] [address] [address] [place] Oxyhemoglobin (BldA) [Mass fraction] 97 % Normal 95-98 [facility] Comment on above: Order Comment: Speci men Type: ARTERIAL BLOOD SPECIMENOrdering Facility: [facility] Address: [address] [place] [address] Performed By: #### A LLBG ####[facility] [id number] [place] [address] [place] pH (Bld) 7.41 [pH] Normal 7.35-7.45 [facility] Comment on above: Order Comment: Speci men Type: ARTERIAL BLOOD SPECIMENOrdering Facility: [facility] Address: [address] [place] [address] Performed By: #### A LLBG ####[facility] [id number] [place] [address] [place] Potassium [Moles/Vol] 4.5 mmol/L Normal 3.5-5.0 [facility] Comment on above: Order Comment: Speci men Type: ARTERIAL BLOOD SPECIMENOrdering Facility: [facility] Address: [address] [place] [address] Performed By: #### A LLBG ####[facility] [id number] [place] [address] [place] Sodium [Moles/Vol] 139 mmol/L Normal 136-144 [facility] Comment on above: Order Comment: Speci men Type: ARTERIAL BLOOD SPECIMENOrdering Facility: [facility] Address: [address] [place] [address] Performed By: #### A LLBG ####[facility] [id number] [place] [address] [place] Base excess Calc (Bld) [Moles/Vol] 3 mmol/L High 0-2 [facility] Comment on above: Order Comment: Speci men Type: ARTERIAL BLOOD SPECIMENOrdering Facility: [facility] Address: [address] [place] [address] Performed By: #### A LLBG ####[facility] [id number] [place] [address] [place] Body temperature 98.6 [degF] Normal [facility] Comment on above: Order Comment: Speci men Type: ARTERIAL BLOOD SPECIMENOrdering Facility: [facility] Address: [address] [place] [address] Performed By: #### A LLBG ####[facility] [id number] [place] [address] [place] Order Comment: Speci men Type: VENOUS BLOOD SPECIMENOrdering Facility: [facility] Address: [address] [place] [address] Performed By: #### 2 4344-4 ####[facility] [id number] [place] [address] [place] Calcium.ionized (Bld) [Mass/Vol] 1.21 mmol/L Normal 1.08-1.30 [facility] Comment on above: Order Comment: Speci men Type: ARTERIAL BLOOD SPECIMENOrdering Facility: [facility] Address: [address] [place] [address] Performed By: #### A LLBG ####[facility] [id number] [place] [address] [place] Calcium.ionized adjusted to pH 7.4 (BldA) [Moles/Vol] 1.22 mmol/L Normal 1.08-1.30 [facility] Comment on above: Order Comment: Speci men Type: ARTERIAL BLOOD SPECIMENOrdering Facility: [facility] Address: [address] [place] [address] Performed By: #### A LLBG ####[facility] [id number] [place] [address] [place] Carboxyhemoglobin (BldA) [Mass fraction] 1.8 % Normal 0.0-2.0 [facility] Comment on above: Order Comment: Speci men Type: ARTERIAL BLOOD SPECIMENOrdering Facility: [facility] Address: [address] [place] [address] Result Comment: Carb oxyhemoglobin Reference Range for Smokers: 2.0-8.0% Performed By: #### A LLBG ####[facility] [id number] [place] [address] [place] CO2 (Bld) [Partial pressure] 44 mm Hg Normal 36-46 [facility] Comment on above: Order Comment: Speci men Type: ARTERIAL BLOOD SPECIMENOrdering Facility: [facility] Address: [address] [place] [address] Performed By: #### A LLBG ####[facility] [id number] [place] [address] [place] Glucose [Mass/Vol] 135 mg/dL High 60-105 [facility] Comment on above: Order Comment: Speci men Type: ARTERIAL BLOOD SPECIMENOrdering Facility: [facility] Address: [address] [place] [address] Performed By: #### A LLBG ####[facility] [id number] [place] [address] [place] HCO3 (Bld) [Moles/Vol] 28 mmol/L Normal 24-28 [facility] Comment on above: Order Comment: Speci men Type: ARTERIAL BLOOD SPECIMENOrdering Facility: [facility] Address: [address] [place] [address] Performed By: #### A LLBG ####[facility] [id number] [place] [address] [place] Order Comment: Speci men Type: VENOUS BLOOD SPECIMENOrdering Facility: [facility] Address: [address] [place] [address] Performed By: #### 2 4344-4 ####[facility] [id number] [place] [address] [place] Hematocrit (Bld) [Volume fraction] 33.3 % Low 39.0-51.0 [facility] Comment on above: Order Comment: Speci men Type: ARTERIAL BLOOD SPECIMENOrdering Facility: [facility] Address: [address] [place] [address] Performed By: #### A LLBG ####[facility] [id number] [place] [address] [place] Hemoglobin (Bld) [Mass/Vol] 10.8 g/dL Low 13.0-17.0 [facility] Comment on above: Order Comment: Speci men Type: ARTERIAL BLOOD SPECIMENOrdering Facility: [facility] Address: [address] [place] [address] Performed By: #### A LLBG ####[facility] [id number] [place] [address] [place] Lactate [Moles/Vol] 1.3 mmol/L Normal 0.5-2.2 [facility] Comment on above: Order Comment: Speci men Type: ARTERIAL BLOOD SPECIMENOrdering Facility: [facility] Address: [address] [place] [address] Performed By: #### A LLBG ####[facility] [id number] [place] [address] [place] Order Comment: Speci men Type: VENOUS BLOOD SPECIMENOrdering Facility: [facility] Address: [address] [place] [address] Performed By: #### 2 4344-4 ####[facility] [id number] [place] [address] [place] LITERS 4 Liters/min Normal [facility] Comment on above: Order Comment: Speci men Type: ARTERIAL BLOOD SPECIMENOrdering Facility: [facility] Address: [address] [place] [address] Performed By: #### A LLBG ####[facility] [id number] [place] [address] [place] Order Comment: Speci men Type: VENOUS BLOOD SPECIMENOrdering Facility: [facility] Address: [address] [place] [id number] Performed By: #### 2 4344-4 ####[facility] [id number] [place] [id number] [place] Methemoglobin (Bld) [Mass fraction] 0.9 % Normal 0.0-1.5 [facility] Comment on above: Order Comment: Speci men Type: ARTERIAL BLOOD SPECIMENOrdering Facility: [facility] Address: [address] [place] [address] Performed By: #### A LLBG ####[facility] [id number] [place] [address] [place] O2 THERAPY NC = Nasal Cannula Normal [facility] Comment on above: Order Comment: Speci men Type: ARTERIAL BLOOD SPECIMENOrdering Facility: [facility] Address: [address] [place] [address] Performed By: #### A LLBG ####[facility] [id number] [place] [address] [place] Order Comment: Speci men Type: VENOUS BLOOD SPECIMENOrdering Facility: [facility] Address: [address] [place] [id number] Performed By: #### 2 4344-4 ####[facility] [id number] [place] [address] [place] Oxygen (Bld) [Partial pressure] 171 mm Hg High 85-95 [facility] Comment on above: Order Comment: Speci men Type: ARTERIAL BLOOD SPECIMENOrdering Facility: [facility] Address: [address] [place] [id number] Performed By: #### A LLBG ####[facility] [id number] [place] [address] [place] Oxyhemoglobin (BldA) [Mass fraction] 97 % Normal 95-98 [facility] Comment on above: Order Comment: Speci men Type: ARTERIAL BLOOD SPECIMENOrdering Facility: [facility] Address: [address] [place] [address] Performed By: #### A LLBG ####[facility] [id number] [place] [address] [place] pH (Bld) 7.41 [pH] Normal 7.35-7.45 [facility] Comment on above: Order Comment: Speci men Type: ARTERIAL BLOOD SPECIMENOrdering Facility: [facility] Address: [address] [place] [address] Performed By: #### A LLBG ####[facility] [id number] [place] [address] [place] Potassium [Moles/Vol] 4.5 mmol/L Normal 3.5-5.0 [facility] Comment on above: Order Comment: Speci men Type: ARTERIAL BLOOD SPECIMENOrdering Facility: [facility] Address: [address] [place] [address] Performed By: #### A LLBG ####[facility] [id number] [place] [address] [place] Base excess Calc (Bld) [Moles/Vol] 3 mmol/L High 0-2 [facility] Comment on above: Order Comment: Speci men Type: ARTERIAL BLOOD SPECIMENOrdering Facility: [facility] Address: [address] [place] [address] Performed By: #### A LLBG ####[facility] [id number] [place] [address] [place] Body temperature 98.6 [degF] Normal [facility] Comment on above: Order Comment: Speci men Type: ARTERIAL BLOOD SPECIMENOrdering Facility: [facility] Address: [address] [place] [address] Performed By: #### A LLBG ####[facility] [id number] [place] [address] [place] Order Comment: Speci men Type: VENOUS BLOOD SPECIMENOrdering Facility: [facility] Address: [address] [place] [address] Performed By: #### 2 4344-4 ####[facility] [id number] [place] [address] [place] Calcium.ionized (Bld) [Mass/Vol] 1.16 mmol/L Normal 1.08-1.30 [facility] Comment on above: Order Comment: Speci men Type: ARTERIAL BLOOD SPECIMENOrdering Facility: [facility] Address: [address] [place] [address] Performed By: #### A LLBG ####[facility] [id number] [place] [address] [place] Calcium.ionized adjusted to pH 7.4 (BldA) [Moles/Vol] 1.18 mmol/L Normal 1.08-1.30 [facility] Comment on above: Order Comment: Speci men Type: ARTERIAL BLOOD SPECIMENOrdering Facility: [facility] Address: [address] [place] [address] Performed By: #### A LLBG ####[facility] [id number] [place] [address] [place] Carboxyhemoglobin (BldA) [Mass fraction] 1.2 % Normal 0.0-2.0 [facility] Comment on above: Order Comment: Speci men Type: ARTERIAL BLOOD SPECIMENOrdering Facility: [facility] Address: [address] [place] [address] Result Comment: Carb oxyhemoglobin Reference Range for Smokers: 2.0-8.0% Performed By: #### A LLBG ####[facility] [id number] [address] [id number] [address] [place] CO2 (Bld) [Partial pressure] 41 mm Hg Normal 36-46 [facility] Comment on above: Order Comment: Speci men Type: ARTERIAL BLOOD SPECIMENOrdering Facility: [facility] Address: [address] [place] [address] Performed By: #### A LLBG ####[facility] [id number] [place] [address] [place] FIO2 30 % Normal [facility] Comment on above: Order Comment: Speci men Type: ARTERIAL BLOOD SPECIMENOrdering Facility: [facility] Address: [address] [place] [address] Performed By: #### A LLBG ####[facility] [id number] [place] [address] [place] Order Comment: Speci men Type: VENOUS BLOOD SPECIMENOrdering Facility: [facility] Address: [address] [place] [address] Performed By: #### 2 4344-4 ####[facility] [id number] [place] [address] [place] Glucose [Mass/Vol] 129 mg/dL High 60-105 [facility] Comment on above: Order Comment: Speci men Type: ARTERIAL BLOOD SPECIMENOrdering Facility: [facility] Address: [address] [place] [address] Performed By: #### A LLBG ####[facility] [id number] [place] [id number] [place] HCO3 (Bld) [Moles/Vol] 27 mmol/L High 22-26 [facility] Comment on above: Order Comment: Speci men Type: ARTERIAL BLOOD SPECIMENOrdering Facility: [facility] Address: [address] [place] [address] Performed By: #### A LLBG ####[facility] [id number] [place] [address] [place] Hematocrit (Bld) [Volume fraction] 33.7 % Low 39.0-51.0 [facility] Comment on above: Order Comment: Speci men Type: ARTERIAL BLOOD SPECIMENOrdering Facility: [facility] Address: [address] [place] [address] Performed By: #### A LLBG ####[facility] LABCLIA [id number] [place] [address] [place] Hemoglobin (Bld) [Mass/Vol] 10.9 g/dL Low 13.0-17.0 [facility] Comment on above: Order Comment: Speci men Type: ARTERIAL BLOOD SPECIMENOrdering Facility: [facility] Address: [address] [place] [address] Performed By: #### A LLBG ####[facility] LABCLIA [id number] [place] [address] [place] Lactate [Moles/Vol] 1.4 mmol/L Normal 0.5-2.2 [facility] Comment on above: Order Comment: Speci men Type: ARTERIAL BLOOD SPECIMENOrdering Facility: [facility] Address: [address] [place] [address] Performed By: #### A LLBG ####[facility] LABCLIA [id number] [place] [address] [place] Order Comment: Speci men Type: VENOUS BLOOD SPECIMENOrdering Facility: [facility] Address: [address] [place] [address] Performed By: #### 2 4344-4 ####[facility] LABCLIA [id number] [place] [address] [place] Methemoglobin (Bld) [Mass fraction] 1.7 % High 0.0-1.5 [facility] Comment on above: Order Comment: Speci men Type: ARTERIAL BLOOD SPECIMENOrdering Facility: [facility] Address: [address] [place] [address] Performed By: #### A LLBG ####[facility] LABCLIA [id number] [address] [address] [place] O2 THERAPY VENT=Ventilator Normal [facility] Comment on above: Order Comment: Speci men Type: ARTERIAL BLOOD SPECIMENOrdering Facility: [facility] Address: [address] [id number] Performed By: #### A LLBG ####[facility] LABCLIA [id number] [place] [id number] [place] Order Comment: Speci men Type: VENOUS BLOOD SPECIMENOrdering Facility: [facility] Address: [address] [place] [address] Performed By: #### 2 4344-4 ####[facility] LABCLIA [id number] [place] [address] [place] Oxygen (Bld) [Partial pressure] 116 mm Hg High 85-95 [facility] Comment on above: Order Comment: Speci men Type: ARTERIAL BLOOD SPECIMENOrdering Facility: [facility] Address: [address] [id number] Performed By: #### A LLBG ####[facility] LABCLIA [id number] [place] [id number] [place] Oxyhemoglobin (BldA) [Mass fraction] 96 % Normal 95-98 [facility] Comment on above: Order Comment: Speci men Type: ARTERIAL BLOOD SPECIMENOrdering Facility: [facility] Address: [address] [id number] Performed By: #### A LLBG ####[facility] LABCLIA [id number] [place] [id number] [place] pH (Bld) 7.44 [pH] Normal 7.35-7.45 [facility] Comment on above: Order Comment: Speci men Type: ARTERIAL BLOOD SPECIMENOrdering Facility: [facility] Address: [address] [id number] Performed By: #### A LLBG ####[facility] LABCLIA [id number] [place] [address] [place] PO2 / FIO2 RATIO 387 mmHg Normal >300 [facility] Comment on above: Order Comment: Speci men Type: ARTERIAL BLOOD SPECIMENOrdering Facility: [facility] Address: [address] [place] [address] Performed By: #### A LLBG ####[facility] LABCLIA [id number] [place] [address] [place] Potassium [Moles/Vol] 4.2 mmol/L Normal 3.5-5.0 [facility] Comment on above: Order Comment: Speci men Type: ARTERIAL BLOOD SPECIMENOrdering Facility: [facility] Address: [address] [place] [address] Performed By: #### A LLBG ####[facility] LABCLIA [id number] [place] [address] [place] Sodium [Moles/Vol] 138 mmol/L Normal 136-144 [facility] Comment on above: Order Comment: Speci men Type: ARTERIAL BLOOD SPECIMENOrdering Facility: [facility] Address: [address] [place] [address] Performed By: #### A LLBG ####[facility] LABCLIA [id number] [place] [address] [place] Base excess Calc (Bld) [Moles/Vol] 4 mmol/L High 0-2 [facility] Comment on above: Order Comment: Speci men Type: ARTERIAL BLOOD SPECIMENOrdering Facility: [facility] Address: [address] [place] [address] Performed By: #### A LLBG ####[facility] LABCLIA [id number] [place] [id number] [place] Body temperature 98.6 [degF] Normal [facility] Comment on above: Order Comment: Speci men Type: ARTERIAL BLOOD SPECIMENOrdering Facility: [facility] Address: [address] [place] [address] Performed By: #### A LLBG ####[facility] LABCLIA [id number] [place] [address] [place] Order Comment: Speci men Type: VENOUS BLOOD SPECIMENOrdering Facility: [facility] Address: [address] [place] [address] Performed By: #### 2 4344-4 ####[facility] LABCLIA [id number] [place] [address] [place] Calcium.ionized (Bld) [Mass/Vol] 1.18 mmol/L Normal 1.08-1.30 [facility] Comment on above: Order Comment: Speci men Type: ARTERIAL BLOOD SPECIMENOrdering Facility: [facility] Address: [address] [place] [address] Performed By: #### A LLBG ####[facility] LABCLIA [id number] [place] [address] [place] Order Comment: Speci men Type: VENOUS BLOOD SPECIMENOrdering Facility: [facility] Address: [address] [place] [address] Performed By: #### 2 4344-4 ####[facility] LABCLIA [id number] [place] [address] [place] Calcium.ionized adjusted to pH 7.4 (BldA) [Moles/Vol] 1.21 mmol/L Normal 1.08-1.30 [facility] Comment on above: Order Comment: Speci men Type: ARTERIAL BLOOD SPECIMENOrdering Facility: [facility] Address: [address] [place] [address] Performed By: #### A LLBG ####[facility] LABCLIA [id number] [place] [address] [place] Carboxyhemoglobin (BldA) [Mass fraction] 1.3 % Normal 0.0-2.0 [facility] Comment on above: Order Comment: Speci men Type: ARTERIAL BLOOD SPECIMENOrdering Facility: [facility] Address: [address] [place] [address] Result Comment: Carb oxyhemoglobin Reference Range for Smokers: 2.0-8.0% Performed By: #### A LLBG ####[facility] LABCLIA [id number] [place] [address] [place] CO2 (Bld) [Partial pressure] 41 mm Hg Normal 36-46 [facility] Comment on above: Order Comment: Speci men Type: ARTERIAL BLOOD SPECIMENOrdering Facility: [facility] Address: [address] [place] [address] Performed By: #### A LLBG ####[facility] LABCLIA [id number] [place] [address] [place] FIO2 30 % Normal [facility] Comment on above: Order Comment: Speci men Type: ARTERIAL BLOOD SPECIMENOrdering Facility: [facility] Address: [address] [place] [address] Performed By: #### A LLBG ####[facility] LABCLIA [id number] [place] [address] [place] Order Comment: Speci men Type: VENOUS BLOOD SPECIMENOrdering Facility: [facility] Address: [address] [place] [address] Performed By: #### 2 4344-4 ####[facility] LABCLIA [id number] [place] [address] [place] Glucose [Mass/Vol] 109 mg/dL High 60-105 [facility] Comment on above: Order Comment: Speci men Type: ARTERIAL BLOOD SPECIMENOrdering Facility: [facility] Address: [address] [place] [address] Performed By: #### A LLBG ####[facility] LABCLIA [id number] [place] [address] [place] HCO3 (Bld) [Moles/Vol] 28 mmol/L High 22-26 [facility] Comment on above: Order Comment: Speci men Type: ARTERIAL BLOOD SPECIMENOrdering Facility: [facility] Address: [address] [place] [address] Performed By: #### A LLBG ####[facility] LABCLIA [id number] [place] [address] [place] Hematocrit (Bld) [Volume fraction] 32.7 % Low 39.0-51.0 [facility] Comment on above: Order Comment: Speci men Type: ARTERIAL BLOOD SPECIMENOrdering Facility: [facility] Address: [address] [place] [address] Performed By: #### A LLBG ####[facility] LABCLIA [id number] [place] [address] [place] Hemoglobin (Bld) [Mass/Vol] 10.6 g/dL Low 13.0-17.0 [facility] Comment on above: Order Comment: Speci men Type: ARTERIAL BLOOD SPECIMENOrdering Facility: [facility] Address: [address] [place] [address] Performed By: #### A LLBG ####[facility] LABCLIA [id number] [place] [address] [place] Lactate [Moles/Vol] 1.2 mmol/L Normal 0.5-2.2 [facility] Comment on above: Order Comment: Speci men Type: ARTERIAL BLOOD SPECIMENOrdering Facility: [facility] Address: [address] [place] [address] Performed By: #### A LLBG ####[facility] LABCLIA [id number] [place] [address] [place] Methemoglobin (Bld) [Mass fraction] 0.8 % Normal 0.0-1.5 [facility] Comment on above: Order Comment: Speci men Type: ARTERIAL BLOOD SPECIMENOrdering Facility: [facility] Address: [address] [place] [address] Performed By: #### A LLBG ####[facility] LABCLIA [id number] [address] [address] [place] Order Comment: Speci men Type: VENOUS BLOOD SPECIMENOrdering Facility: [facility] Address: [address] [id number] Performed By: #### 2 4344-4 ####[facility] LABCLIA [id number] [address] [address] [place] O2 THERAPY VENT=Ventilator Normal [facility] Comment on above: Order Comment: Speci men Type: ARTERIAL BLOOD SPECIMENOrdering Facility: [facility] Address: [address] [place], [place] [address] Performed By: #### A LLBG ####[facility] LABCLIA [id number] [address] [address] [place] Order Comment: Speci men Type: VENOUS BLOOD SPECIMENOrdering Facility: [facility] Address: [address] [place] [address] Performed By: #### 2 4344-4 ####[facility] LABCLIA [id number] [address] [address] [place] Oxygen (Bld) [Partial pressure] 127 mm Hg High 85-95 [facility] Comment on above: Order Comment: Speci men Type: ARTERIAL BLOOD SPECIMENOrdering Facility: [facility] Address: [address] [place] [address] Performed By: #### A LLBG ####[facility] LABCLIA [id number] [address] [address] [place] Oxyhemoglobin (BldA) [Mass fraction] 97 % Normal 95-98 [facility] Comment on above: Order Comment: Speci men Type: ARTERIAL BLOOD SPECIMENOrdering Facility: [facility] Address: [address] [place] [address] Performed By: #### A LLBG ####[facility] LABCLIA [id number] [place] [address] [place] pH (Bld) 7.45 [pH] Normal 7.35-7.45 [facility] Comment on above: Order Comment: Speci men Type: ARTERIAL BLOOD SPECIMENOrdering Facility: [facility] Address: [address] [place] [address] Performed By: #### A LLBG ####[facility] LABIA [id number] [place] [address] [place] PO2 / FIO2 RATIO 423 mmHg Normal >300 [facility] Comment on above: Order Comment: Speci men Type: ARTERIAL BLOOD SPECIMENOrdering Facility: [facility] Address: [address] [place] [address] Performed By: #### A LLBG ####[facility] LABCLIA [id number] [place] [address] [place] Potassium [Moles/Vol] 4.1 mmol/L Normal 3.5-5.0 [facility] Comment on above: Order Comment: Speci men Type: ARTERIAL BLOOD SPECIMENOrdering Facility: [facility] Address: [address] [place] [address] Performed By: #### A LLBG ####[facility] LABCLIA [id number] [place] [address] [place] Sodium [Moles/Vol] 139 mmol/L Normal 136-144 [facility] Comment on above: Order Comment: Speci men Type: ARTERIAL BLOOD SPECIMENOrdering Facility: [facility] Address: [address] [place] [address] Performed By: #### A LLBG ####[facility] LABCLIA [id number] [place] [address] [place] Base excess Calc (Bld) [Moles/Vol] 3 mmol/L High 0-2 [facility] Comment on above: Order Comment: Speci men Type: ARTERIAL BLOOD SPECIMENOrdering Facility: [facility] Address: [address] [place] [address] Performed By: #### A LLBG ####[facility] LABCLIA [id number] [place] [address] [place] Body temperature 98.6 [degF] Normal [facility] Comment on above: Order Comment: Speci men Type: ARTERIAL BLOOD SPECIMENOrdering Facility: [facility] Address: [address] [place] [address] Performed By: #### A LLBG ####[facility] LABCLIA [id number] [place] [address] [place] Order Comment: Speci men Type: VENOUS BLOOD SPECIMENOrdering Facility: [facility] Address: [address] [place] [address] Performed By: #### 2 4344-4 ####[facility] LABCLIA [id number] [place] [address] [place] Calcium.ionized (Bld) [Mass/Vol] 1.19 mmol/L Normal 1.08-1.30 [facility] Comment on above: Order Comment: Speci men Type: ARTERIAL BLOOD SPECIMENOrdering Facility: [facility] Address: [address] [place] [address] Performed By: #### A LLBG ####[facility] LABCLIA [id number] [place] [address] [place] Order Comment: Speci men Type: VENOUS BLOOD SPECIMENOrdering Facility: [facility] Address: [address] [place] [address] Performed By: #### 2 4344-4 ####[facility] LABCLIA [id number] [place] [address] [place] Calcium.ionized adjusted to pH 7.4 (BldA) [Moles/Vol] 1.20 mmol/L Normal 1.08-1.30 [facility] Comment on above: Order Comment: Speci men Type: ARTERIAL BLOOD SPECIMENOrdering Facility: [facility] Address: [address] [place] [address] Performed By: #### A LLBG ####[facility] LABCLIA [id number] [place] [address] [place] Carboxyhemoglobin (BldA) [Mass fraction] 1.4 % Normal 0.0-2.0 [facility] Comment on above: Order Comment: Speci men Type: ARTERIAL BLOOD SPECIMENOrdering Facility: [facility] Address: [address] [place] [address] Result Comment: Carb oxyhemoglobin Reference Range for Smokers: 2.0-8.0% Performed By: #### A LLBG ####[facility] LABCLIA [id number] [place] [address] [place] CO2 (Bld) [Partial pressure] 43 mm Hg Normal 36-46 [facility] Comment on above: Order Comment: Speci men Type: ARTERIAL BLOOD SPECIMENOrdering Facility: [facility] Address: [address] [place] [address] Performed By: #### A LLBG ####[facility] LABCLIA [id number] [place] [address] [place] FIO2 30 % Normal [facility] Comment on above: Order Comment: Speci men Type: ARTERIAL BLOOD SPECIMENOrdering Facility: [facility] Address: [address] [place] [address] Performed By: #### A LLBG ####[facility] LABCLIA [id number] [place] [address] [place] Order Comment: Speci men Type: VENOUS BLOOD SPECIMENOrdering Facility: [facility] Address: [address] [place] [address] Performed By: #### 2 4344-4 ####[facility] LABCLIA [id number] [place] [address] [place] Glucose [Mass/Vol] 116 mg/dL High 60-105 [facility] Comment on above: Order Comment: Speci men Type: ARTERIAL BLOOD SPECIMENOrdering Facility: [facility] Address: [address] [place] [address] Performed By: #### A LLBG ####[facility] LABCLIA [id number] [place] [address] [place] HCO3 (Bld) [Moles/Vol] 27 mmol/L High 22-26 [facility] Comment on above: Order Comment: Speci men Type: ARTERIAL BLOOD SPECIMENOrdering Facility: [facility] Address: [address] [place] [address] Performed By: #### A LLBG ####[facility] LABCLIA [id number] [place] [address] [place] Hematocrit (Bld) [Volume fraction] 31.4 % Low 39.0-51.0 [facility] Comment on above: Order Comment: Speci men Type: ARTERIAL BLOOD SPECIMENOrdering Facility: [facility] Address: [address] [place] [address] Performed By: #### A LLBG ####[facility] LABCLIA [id number] [place] [address] [place] Hemoglobin (Bld) [Mass/Vol] 10.1 g/dL Low 13.0-17.0 [facility] Comment on above: Order Comment: Speci men Type: ARTERIAL BLOOD SPECIMENOrdering Facility: [facility] Address: [address] [place] [address] Performed By: #### A LLBG ####[facility] LABCLIA [id number] [place] [address] [place] Lactate [Moles/Vol] 1.4 mmol/L Normal 0.5-2.2 [facility] Comment on above: Order Comment: Speci men Type: ARTERIAL BLOOD SPECIMENOrdering Facility: [facility] Address: [address] [place] [address] Performed By: #### A LLBG ####[facility] LABCLIA [id number] [place] [id number] [place] Methemoglobin (Bld) [Mass fraction] 0.7 % Normal 0.0-1.5 [facility] Comment on above: Order Comment: Speci men Type: ARTERIAL BLOOD SPECIMENOrdering Facility: [facility] Address: [address] [place] [address] Performed By: #### A LLBG ####[facility] LABCLIA [id number] [place] [address] [place] O2 THERAPY VENT=Ventilator Normal [facility] Comment on above: Order Comment: Speci men Type: ARTERIAL BLOOD SPECIMENOrdering Facility: [facility] Address: [address] [place] [address] Performed By: #### A LLBG ####[facility] LABCLIA [id number] [place] [address] [place] Order Comment: Speci men Type: VENOUS BLOOD SPECIMENOrdering Facility: [facility] Address: [address] [place] [address] Performed By: #### 2 4344-4 ####[facility] LABCLIA [id number] [place] [address] [place] Oxygen (Bld) [Partial pressure] 136 mm Hg High 85-95 [facility] Comment on above: Order Comment: Speci men Type: ARTERIAL BLOOD SPECIMENOrdering Facility: [facility] Address: [address] [place] [address] Performed By: #### A LLBG ####[facility] LABCLIA [id number] [place] [address] [place] Oxyhemoglobin (BldA) [Mass fraction] 97 % Normal 95-98 [facility] Comment on above: Order Comment: Speci men Type: ARTERIAL BLOOD SPECIMENOrdering Facility: [facility] Address: [address] [place] [address] Performed By: #### A LLBG ####[facility] LABCLIA [id number] [place] [address] [place] PEEP/CPAP 8 cmH2O Normal [facility] Comment on above: Order Comment: Speci men Type: ARTERIAL BLOOD SPECIMENOrdering Facility: [facility] Address: [address] [place] [address] Performed By: #### A LLBG ####[facility] LABCLIA [id number] [place] [address] [place] Order Comment: Speci men Type: VENOUS BLOOD SPECIMENOrdering Facility: [facility] Address: [address] [place] [address] Performed By: #### 2 4344-4 ####[facility] LABCLIA [id number] [place] [address] [place] pH (Bld) 7.41 [pH] Normal 7.35-7.45 [facility] Comment on above: Order Comment: Speci men Type: ARTERIAL BLOOD SPECIMENOrdering Facility: [facility] Address: [address] [place] [address] Performed By: #### A LLBG ####[facility] LABCLIA [id number] [place] [address] [place] PO2 / FIO2 RATIO 453 mmHg Normal >300 [facility] Comment on above: Order Comment: Speci men Type: ARTERIAL BLOOD SPECIMENOrdering Facility: [facility] Address: [address] [place] [address] Performed By: #### A LLBG ####[facility] LABCLIA [id number] [id number] [address] [place] Sodium [Moles/Vol] 136 mmol/L Normal 136-144 [facility] Comment on above: Order Comment: Speci men Type: ARTERIAL BLOOD SPECIMENOrdering Facility: [facility] Address: [address] [place] [address] Performed By: #### A LLBG ####[facility] LABCLIA [id number] [place] [address] [place] Base excess Calc (Bld) [Moles/Vol] 2 mmol/L Normal 0-2 [facility] Comment on above: Order Comment: Speci men Type: ARTERIAL BLOOD SPECIMENOrdering Facility: [facility] Address: [address] [place] [address] Performed By: #### A LLBG ####[facility] LABCLIA [id number] [place] [address] [place] Body temperature 98.6 [degF] Normal [facility] Comment on above: Order Comment: Speci men Type: ARTERIAL BLOOD SPECIMENOrdering Facility: [facility] Address: [address] [place] [address] Performed By: #### A LLBG ####[facility] LABCLIA [id number] [place] [address] [place] Order Comment: Speci men Type: VENOUS BLOOD SPECIMENOrdering Facility: [facility] Address: [address] [place] [address] Performed By: #### 2 4344-4 ####[facility] LABCLIA [id number] [place] [address] [place] Calcium.ionized (Bld) [Mass/Vol] 1.18 mmol/L Normal 1.08-1.30 [facility] Comment on above: Order Comment: Speci men Type: ARTERIAL BLOOD SPECIMENOrdering Facility: [facility] Address: [address] [place] [address] Performed By: #### A LLBG ####[facility] LABCLIA [id number] [place] [address] [place] Calcium.ionized adjusted to pH 7.4 (BldA) [Moles/Vol] 1.20 mmol/L Normal 1.08-1.30 [facility] Comment on above: Order Comment: Speci men Type: ARTERIAL BLOOD SPECIMENOrdering Facility: [facility] Address: [address] [place] [address] Performed By: #### A LLBG ####[facility] LABCLIA [id number] [place] [address] [place] Order Comment: Speci men Type: VENOUS BLOOD SPECIMENOrdering Facility: [facility] Address: [address] [place] [address] Performed By: #### 2 4344-4 ####[facility] LABCLIA [id number] [place] [address] [place] Carboxyhemoglobin (BldA) [Mass fraction] 1.2 % Normal 0.0-2.0 [facility] Comment on above: Order Comment: Speci men Type: ARTERIAL BLOOD SPECIMENOrdering Facility: [facility] Address: [address] [place] [address] Result Comment: Carb oxyhemoglobin Reference Range for Smokers: 2.0-8.0% Performed By: #### A LLBG ####[facility] LABCLIA [id number] [place] [address] [place] CO2 (Bld) [Partial pressure] 42 mm Hg Normal 36-46 [facility] Comment on above: Order Comment: Speci men Type: ARTERIAL BLOOD SPECIMENOrdering Facility: [facility] Address: [address] [place] [address] Performed By: #### A LLBG ####[facility] LABCLIA [id number] [place] [address] [place] FIO2 30 % Normal [facility] Comment on above: Order Comment: Speci men Type: ARTERIAL BLOOD SPECIMENOrdering Facility: [facility] Address: [address] [place] [address] Performed By: #### A LLBG ####[facility] LABCLIA [id number] [place] [address] [place] Order Comment: Speci men Type: VENOUS BLOOD SPECIMENOrdering Facility: [facility] Address: [address] [place] [address] Performed By: #### 2 4344-4 ####[facility] LABCLIA [id number] [place] [address] [place] Glucose [Mass/Vol] 115 mg/dL High 60-105 [facility] Comment on above: Order Comment: Speci men Type: ARTERIAL BLOOD SPECIMENOrdering Facility: [facility] Address: [address] [place] [address] Performed By: #### A LLBG ####[facility] LABCLIA [id number] [place] [address] [place] HCO3 (Bld) [Moles/Vol] 26 mmol/L Normal 22-26 [facility] Comment on above: Order Comment: Speci men Type: ARTERIAL BLOOD SPECIMENOrdering Facility: [facility] Address: [address] [place] [address] Performed By: #### A LLBG ####[facility] LABCLIA [id number] [place] [address] [place] Hematocrit (Bld) [Volume fraction] 31.9 % Low 39.0-51.0 [facility] Comment on above: Order Comment: Speci men Type: ARTERIAL BLOOD SPECIMENOrdering Facility: [facility] Address: [address] [place] [address] Performed By: #### A LLBG ####[facility] [id number] [place] [address] [place] Hemoglobin (Bld) [Mass/Vol] 10.3 g/dL Low 13.0-17.0 [facility] Comment on above: Order Comment: Speci men Type: ARTERIAL BLOOD SPECIMENOrdering Facility: [facility] Address: [address] [place] [address] Performed By: #### A LLBG ####[facility] [id number] [place] [address] [place] Lactate [Moles/Vol] 1.3 mmol/L Normal 0.5-2.2 [facility] Comment on above: Order Comment: Speci men Type: ARTERIAL BLOOD SPECIMENOrdering Facility: [facility] Address: [address] [place] [address] Performed By: #### A LLBG ####[facility] [id number] [place] [address] [place] Order Comment: Speci men Type: VENOUS BLOOD SPECIMENOrdering Facility: [facility] Address: [address] [place] [address] Performed By: #### 2 4344-4 ####[facility] [id number] [place] [address] [place] Methemoglobin (Bld) [Mass fraction] 1.9 % High 0.0-1.5 [facility] Comment on above: Order Comment: Speci men Type: ARTERIAL BLOOD SPECIMENOrdering Facility: [facility] Address: [address] [place] [address] Performed By: #### A LLBG ####[facility] [id number] [place] [address] [place] O2 THERAPY VENT=Ventilator Normal [facility] Comment on above: Order Comment: Speci men Type: ARTERIAL BLOOD SPECIMENOrdering Facility: [facility] Address: [address] [place] [address] Performed By: #### A LLBG ####[facility] [id number] [id number] [address] [place] Order Comment: Speci men Type: VENOUS BLOOD SPECIMENOrdering Facility: [facility] Address: [address] [place] [id number] Performed By: #### 2 4344-4 ####[facility] [id number] [place] [id number] [place] Oxygen (Bld) [Partial pressure] 124 mm Hg High 85-95 [facility] Comment on above: Order Comment: Speci men Type: ARTERIAL BLOOD SPECIMENOrdering Facility: [facility] Address: [address] [place] [address] Performed By: #### A LLBG ####[facility] [id number] [place] [address] [place] Oxyhemoglobin (BldA) [Mass fraction] 96 % Normal 95-98 [facility] Comment on above: Order Comment: Speci men Type: ARTERIAL BLOOD SPECIMENOrdering Facility: [facility] Address: [address] [place] [address] Performed By: #### A LLBG ####[facility] [id number] [place] [address] [place] PEEP/CPAP 8 cmH2O Normal [facility] Comment on above: Order Comment: Speci men Type: ARTERIAL BLOOD SPECIMENOrdering Facility: [facility] Address: [address] [place] [address] Performed By: #### A LLBG ####[facility] [id number] [place] [address] [place] Order Comment: Speci men Type: VENOUS BLOOD SPECIMENOrdering Facility: [facility] Address: [address] [place] [address] Performed By: #### 2 4344-4 ####[facility] [id number] [place] [id number] [place] pH (Bld) 7.42 [pH] Normal 7.35-7.45 [facility] Comment on above: Order Comment: Speci men Type: ARTERIAL BLOOD SPECIMENOrdering Facility: [facility] Address: [address] [place] [address] Performed By: #### A LLBG ####[facility] [id number] [place] [address] [place] PO2 / FIO2 RATIO 413 mmHg Normal >300 [facility] Comment on above: Order Comment: Speci men Type: ARTERIAL BLOOD SPECIMENOrdering Facility: [facility] Address: [address] [place] [address] Performed By: #### A LLBG ####[facility] [id number] [place] [address] [place] Sodium [Moles/Vol] 137 mmol/L Normal 136-144 [facility] Comment on above: Order Comment: Speci men Type: ARTERIAL BLOOD SPECIMENOrdering Facility: [facility] Address: [address] [place] [address] Performed By: #### A LLBG ####[facility] [id number] [place] [address] [place] Order Comment: Speci men Type: VENOUS BLOOD SPECIMENOrdering Facility: [facility] Address: [address] [place] [address] Performed By: #### 2 4344-4 ####[facility] [id number] [place] [address] [place] Base excess Calc (Bld) [Moles/Vol] 2 mmol/L Normal 0-2 [facility] Comment on above: Order Comment: Speci men Type: ARTERIAL BLOOD SPECIMENOrdering Facility: [facility] Address: [address] [place] [address] Performed By: #### A LLBG ####[facility] [id number] [place] [address] [place] Body temperature 98.6 [degF] Normal [facility] Comment on above: Order Comment: Speci men Type: ARTERIAL BLOOD SPECIMENOrdering Facility: [facility] Address: [address] [place] [address] Performed By: #### A LLBG ####[facility] [id number] [place] [address] [place] Order Comment: Speci men Type: VENOUS BLOOD SPECIMENOrdering Facility: [facility] Address: [address] [place] [address] Performed By: #### 2 4344-4 ####[facility] [id number] [place] [address] [place] Calcium.ionized (Bld) [Mass/Vol] 1.21 mmol/L Normal 1.08-1.30 [facility] Comment on above: Order Comment: Speci men Type: ARTERIAL BLOOD SPECIMENOrdering Facility: [facility] Address: [address] [place] [address] Performed By: #### A LLBG ####[facility] [id number] [place] [address] [place] Calcium.ionized adjusted to pH 7.4 (BldA) [Moles/Vol] 1.22 mmol/L Normal 1.08-1.30 [facility] Comment on above: Order Comment: Speci men Type: ARTERIAL BLOOD SPECIMENOrdering Facility: [facility] Address: [address] [place] [address] Performed By: #### A LLBG ####[facility] [id number] [place] [address] [place] Carboxyhemoglobin (BldA) [Mass fraction] 0.7 % Normal 0.0-2.0 [facility] Comment on above: Order Comment: Speci men Type: ARTERIAL BLOOD SPECIMENOrdering Facility: [facility] Address: [address] [place] [address] Result Comment: Carb oxyhemoglobin Reference Range for Smokers: 2.0-8.0% Performed By: #### A LLBG ####[facility] [id number] [place] [address] [place] CO2 (Bld) [Partial pressure] 42 mm Hg Normal 36-46 [facility] Comment on above: Order Comment: Speci men Type: ARTERIAL BLOOD SPECIMENOrdering Facility: [facility] Address: [address] [place] [address] Performed By: #### A LLBG ####[facility] [id number] [place] [address] [place] FIO2 30 % Normal [facility] Comment on above: Order Comment: Speci men Type: ARTERIAL BLOOD SPECIMENOrdering Facility: [facility] Address: [address] [place] [address] Performed By: #### A LLBG ####[facility] [id number] [place] [address] [place] Order Comment: Speci men Type: VENOUS BLOOD SPECIMENOrdering Facility: [facility] Address: [address] [place] [address] Performed By: #### 2 4344-4 ####[facility] [id number] [place] [address] [place] Glucose [Mass/Vol] 121 mg/dL High 60-105 [facility] Comment on above: Order Comment: Speci men Type: ARTERIAL BLOOD SPECIMENOrdering Facility: [facility] Address: [address] [place] [address] Performed By: #### A LLBG ####[facility] [id number] [place] [address] [place] Order Comment: Speci men Type: VENOUS BLOOD SPECIMENOrdering Facility: [facility] Address: [address] [place] [address] Performed By: #### 2 4344-4 ####[facility] [id number] [place] [address] [place] HCO3 (Bld) [Moles/Vol] 26 mmol/L Normal 22-26 [facility] Comment on above: Order Comment: Speci men Type: ARTERIAL BLOOD SPECIMENOrdering Facility: [facility] Address: [address] [place] [address] Performed By: #### A LLBG ####[facility] [id number] [place] [address] [place] Hematocrit (Bld) [Volume fraction] 32.4 % Low 39.0-51.0 [facility] Comment on above: Order Comment: Speci men Type: ARTERIAL BLOOD SPECIMENOrdering Facility: [facility] Address: [address] [place] [address] Performed By: #### A LLBG ####[facility] [id number] [place] [address] [place] Hemoglobin (Bld) [Mass/Vol] 10.5 g/dL Low 13.0-17.0 [facility] Comment on above: Order Comment: Speci men Type: ARTERIAL BLOOD SPECIMENOrdering Facility: [facility] Address: [address] [place] [address] Performed By: #### A LLBG ####[facility] [id number] [place] [address] [place] Lactate [Moles/Vol] 1.8 mmol/L Normal 0.5-2.2 [facility] Comment on above: Order Comment: Speci men Type: ARTERIAL BLOOD SPECIMENOrdering Facility: [facility] Address: [address] [place] [address] Performed By: #### A LLBG ####[facility] [id number] [place] [address] [place] Methemoglobin (Bld) [Mass fraction] 1.2 % Normal 0.0-1.5 [facility] Comment on above: Order Comment: Speci men Type: ARTERIAL BLOOD SPECIMENOrdering Facility: [facility] Address: [address] [place] [address] Performed By: #### A LLBG ####[facility] [id number] [place] [id number] [place] O2 THERAPY VENT=Ventilator Normal [facility] Comment on above: Order Comment: Speci men Type: ARTERIAL BLOOD SPECIMENOrdering Facility: [facility] Address: [address] [place] [address] Performed By: #### A LLBG ####[facility] [id number] [place] [address] [place] Order Comment: Speci men Type: VENOUS BLOOD SPECIMENOrdering Facility: [facility] Address: [address] [place] [address] Performed By: #### 2 4344-4 ####[facility] [id number] [place] [address] [place] Oxygen (Bld) [Partial pressure] 133 mm Hg High 85-95 [facility] Comment on above: Order Comment: Speci men Type: ARTERIAL BLOOD SPECIMENOrdering Facility: [facility] Address: [address] [place], [place] [address] Performed By: #### A LLBG ####[facility] [id number] [place] [id number] [place] Oxyhemoglobin (BldA) [Mass fraction] 97 % Normal 95-98 [facility] Comment on above: Order Comment: Speci men Type: ARTERIAL BLOOD SPECIMENOrdering Facility: [facility] Address: [address] [place] [id number] Performed By: #### A LLBG ####[facility] [id number] [place] [id number] [place] PEEP/CPAP 8 cmH2O Normal [facility] Comment on above: Order Comment: Speci men Type: ARTERIAL BLOOD SPECIMENOrdering Facility: [facility] Address: [address] [place] [address] Performed By: #### A LLBG ####[facility] [id number] [place] [id number] [place] pH (Bld) 7.41 [pH] Normal 7.35-7.45 [facility] Comment on above: Order Comment: Speci men Type: ARTERIAL BLOOD SPECIMENOrdering Facility: [facility] Address: [address] [place] [address] Performed By: #### A LLBG ####[facility] [id number] [place] [address] [place] PO2 / FIO2 RATIO 443 mmHg Normal >300 [facility] Comment on above: Order Comment: Speci men Type: ARTERIAL BLOOD SPECIMENOrdering Facility: [facility] Address: [address] [place] [address] Performed By: #### A LLBG ####[facility] [id number] [place] [address] [place] Potassium [Moles/Vol] 4.2 mmol/L Normal 3.5-5.0 [facility] Comment on above: Order Comment: Speci men Type: ARTERIAL BLOOD SPECIMENOrdering Facility: [facility] Address: [address] [place] [address] Performed By: #### A LLBG ####[facility] [id number] [place] [address] [place] Sodium [Moles/Vol] 137 mmol/L Normal 136-144 [facility] Comment on above: Order Comment: Speci men Type: ARTERIAL BLOOD SPECIMENOrdering Facility: [facility] Address: [address] [place], [place] [address] Performed By: #### A LLBG ####[facility] [id number] [place] [address] [place] Order Comment: Speci men Type: VENOUS BLOOD SPECIMENOrdering Facility: [facility] Address: [address] [place] [address] Performed By: #### 2 4344-4 ####[facility] [id number] [place] [address] [place] CBC panel Auto (Bld)on 01-24 Erythrocyte distribution width (RBC) [Ratio] 15.0 % Normal 11.5-15.0 [facility] Comment on above: Order Comment: Speci men Type: BLOOD SPECIMENOrdering Facility: [facility] Address: [address] [place] [address] Performed By: #### 5 8410-2 ####[facility] [id number] [place] [address] [place] Hematocrit (Bld) [Volume fraction] 32.0 % Low 39.0-51.0 [facility] Comment on above: Order Comment: Speci men Type: BLOOD SPECIMENOrdering Facility: [facility] Address: [address] [place] [address] Performed By: #### 5 8410-2 ####[facility] [id number] [place] [address] [place] MCH (RBC) [Entitic mass] 27.4 pg Normal 26.0-34.0 [facility] Comment on above: Order Comment: Speci men Type: BLOOD SPECIMENOrdering Facility: [facility] Address: [address] [place] [address] Performed By: #### 5 8410-2 ####[facility] [id number] [place] [address] [place] MCHC (RBC) [Mass/Vol] 32.2 g/dL Normal 30.5-36.0 [facility] Comment on above: Order Comment: Speci men Type: BLOOD SPECIMENOrdering Facility: [facility] Address: [address] [place] [address] Performed By: #### 5 8410-2 ####[facility] [id number] [place] [address] [place] MCV (RBC) [Entitic vol] 85.1 fL Normal 80.0-100.0 [facility] Comment on above: Order Comment: Speci men Type: BLOOD SPECIMENOrdering Facility: [facility] Address: [address] [place] [address] Performed By: #### 5 8410-2 ####[facility] [id number] [place] [address] [place] Nucleated RBC (Bld) [#/Vol] 10*3/uL Normal <0.01 [facility] Comment on above: Order Comment: Speci men Type: BLOOD SPECIMENOrdering Facility: [facility] Address: [address] [place] [address] Performed By: #### 5 8410-2 ####[facility] [id number] [place] [address] [place] Platelet mean volume (Bld) [Entitic vol] 10.9 fL Normal 9.0-12.7 [facility] Comment on above: Order Comment: Speci men Type: BLOOD SPECIMENOrdering Facility: [facility] Address: [address] [place] [address] Performed By: #### 5 8410-2 ####[facility] [id number] [place] [address] [place] Platelets (Bld) [#/Vol] 100 10*3/uL Low 150-400 [facility] Comment on above: Order Comment: Speci men Type: BLOOD SPECIMENOrdering Facility: [facility] Address: [address] [place] [address] Result Comment: Resu lts checked and verified.No clot detected. Performed By: #### 5 8410-2 ####[facility] [id number] [place] [address] [place] RBC (Bld) [#/Vol] 3.76 10*6/uL Low 4.20-6.00 [facility] Comment on above: Order Comment: Speci men Type: BLOOD SPECIMENOrdering Facility: [facility] Address: [address] [place] [address] Performed By: #### 5 8410-2 ####[facility] [id number] [place] [address] [place] WBC (Bld) [#/Vol] 13.62 10*3/uL High 3.70-11.00 [facility] Comment on above: Order Comment: Speci men Type: BLOOD SPECIMENOrdering Facility: [facility] Address: [address] [place] [address] Performed By: #### 5 8410-2 ####[facility] [id number] [place] [address] [place] [facility] [place] Comp Metab 2000 Pnl SerPlon 01-25-2024 Potassium [Moles/Vol] 4.3 mmol/L Normal 3.5-5.0 [facility] Comment on above: Order Comment: Speci men Type: BLOOD SPECIMENOrdering Facility: [facility] Address: [address] [place] [address] Performed By: #### 2 4323-8 ####[facility] [id number] [address] [place] Order Comment: Speci men Type: VENOUS BLOOD SPECIMENOrdering Facility: [facility] Address: [address] [place] [address] Performed By: #### 2 4344-4 ####[facility] [id number] [address] [place] Order Comment: Speci men Type: ARTERIAL BLOOD SPECIMENOrdering Facility: [facility] Address: [address] [place] [id number] Performed By: #### A LLBG ####[facility] [id number] [place] [id number] [place] Sodium [Moles/Vol] 140 mmol/L Normal 136-144 [facility] Comment on above: Order Comment: Speci men Type: BLOOD SPECIMENOrdering Facility: [facility] Address: [address] [place] [address] Performed By: #### 2 4323-8 ####[facility] [id number] [address] [place] Order Comment: Speci men Type: ARTERIAL BLOOD SPECIMENOrdering Facility: [facility] Address: [address] [place] [address] Performed By: #### A LLBG ####[facility] [id number] [address] [place] Order Comment: Speci men Type: VENOUS BLOOD SPECIMENOrdering Facility: [facility] Address: [address] [place] [address] Performed By: #### 2 4344-4 ####[facility] [id number] [place] [address] [place] Comprehensive metabolic 2000 panelon 01-25-2024 Albumin [Mass/Vol] 4.1 g/dL Normal 3.9-4.9 [facility] Comment on above: Order Comment: Speci men Type: BLOOD SPECIMENOrdering Facility: [facility] Address: [address] [place], [place] [address] Performed By: #### 2 4323-8 ####[facility] [id number] [place] [id number] [place] ALP [Catalytic activity/Vol] 41 U/L Normal 38-113 [facility] Comment on above: Order Comment: Speci men Type: BLOOD SPECIMENOrdering Facility: [facility] Address: [address] [place] [address] Performed By: #### 2 4323-8 ####[facility] [id number] [place] [address] [place] ALT [Catalytic activity/Vol] 12 U/L Normal 10-54 [facility] Comment on above: Order Comment: Speci men Type: BLOOD SPECIMENOrdering Facility: [facility] Address: [address] [place] [address] Performed By: #### 2 4323-8 ####[facility] [id number] [place] [address] [place] Anion gap [Moles/Vol] 13 mmol/L Normal 8-15 [facility] Comment on above: Order Comment: Speci men Type: BLOOD SPECIMENOrdering Facility: [facility] Address: [address] [place] [address] Performed By: #### 2 4323-8 ####[facility] [id number] [place] [address] [place] AST [Catalytic activity/Vol] 49 U/L High 14-40 [facility] Comment on above: Order Comment: Speci men Type: BLOOD SPECIMENOrdering Facility: [facility] Address: [address] [place] [address] Performed By: #### 2 4323-8 ####[facility] [id number] [place] [address] [place] Bilirubin [Mass/Vol] 0.5 mg/dL Normal 0.2-1.3 [facility] Comment on above: Order Comment: Speci men Type: BLOOD SPECIMENOrdering Facility: [facility] Address: [address] [place], [place] [address] Performed By: #### 2 4323-8 ####[facility] [id number] [place] [address] [place] Calcium [Mass/Vol] 8.9 mg/dL Normal 8.5-10.2 [facility] Comment on above: Order Comment: Speci men Type: BLOOD SPECIMENOrdering Facility: [facility] Address: [address] [place] [address] Performed By: #### 2 4323-8 ####[facility] [id number] [place] [address] [place] Chloride [Moles/Vol] 101 mmol/L Normal 98-107 [facility] Comment on above: Order Comment: Speci men Type: BLOOD SPECIMENOrdering Facility: [facility] Address: [address] [place] [address] Performed By: #### 2 4323-8 ####[facility] [id number] [place] [address] [place] CO2 [Moles/Vol] 24 mmol/L Normal 22-30 [facility] Comment on above: Order Comment: Speci men Type: BLOOD SPECIMENOrdering Facility: [facility] Address: [address] [place] [address] Performed By: #### 2 4323-8 ####[facility] [id number] [place] [address] [place] Creatinine [Mass/Vol] 1.14 mg/dL Normal 0.73-1.22 [facility] Comment on above: Order Comment: Speci men Type: BLOOD SPECIMENOrdering Facility: [facility] Address: [address] [place], [place] [address] Performed By: #### 2 4323-8 ####[facility] [id number] [place] [address] [place] Creatinine and Glomerular filtration rate.predicted panel (S/P/Bld) 71 mL/min/1.73m??? Normal >=60 [facility] Comment on above: Order Comment: Jeison parry Type: BLOOD SPECIMENOrdering Facility: [facility] Address: [address] [place] [address] Result Comment: Talisha mated Glomerular Filtration Rate (eGFR) is calculated using the 2020 CKD-EPI creatinine equation. This equation utilizes serum creatinine, sex, and age as parameters. The creatinine assay has traceable calibration to isotope dilution-mass spectrometry. Refer to KDIGO guidelines for clinical interpretation. In patients with unstable renal function, e.g. those with acute kidney injury, the eGFR may not accurately reflect actual GFR. Performed By: #### 2 4323-8 ####[facility] [id number] [place] [address] [place] Glucose [Mass/Vol] 122 mg/dL High 74-99 [facility] Comment on above: Order Comment: Jeison parry Type: BLOOD SPECIMENOrdering Facility: [facility] Address: [address] [place] [address] Result Comment: The [place] [employer] (ADA) provides guidance for cutoff values for fasting glucose and random glucose. The ADA defines fasting as no caloric intake for at least 8 hours. Fasting plasma glucose results between 100 to 125 mg/dL indicate increased risk for diabetes (prediabetes).Fasting plasma glucose results greater than or equal to 126 mg/dL meet the criteria for diagnosis of diabetes. In the absence of unequivocal hyperglycemia, results should be confirmed by repeat testing. In a patient with classic symptoms of hyperglycemia or hyperglycemic crisis, random plasma glucose results greater than or equal to 200 mg/dL meet the criteria for diagnosis of diabetes.Reference: Standards of Medical Care in Diabetes 2016, [place] [employer]. Diabetes Care. 2016.39(Suppl 1). Performed By: #### 2 4323-8 ####[facility] [id number] [place] [address] [place] Protein [Mass/Vol] 6.1 g/dL Low 6.3-8.0 [facility] Comment on above: Order Comment: Jeison parry Type: BLOOD SPECIMENOrdering Facility: [facility] Address: [address] [place] [address] Performed By: #### 2 4323-8 ####[facility] [id number] [place] [address] [place] Urea nitrogen [Mass/Vol] 34 mg/dL High 9-24 [facility] Comment on above: Order Comment: Speci men Type: BLOOD SPECIMENOrdering Facility: [facility] Address: [address] [place] [address] Performed By: #### 2 4323-8 ####[facility] [id number] [place] [address] [place] Gas + CO Pnl BldVon 01-25-20 Body temperature 98.6 [degF] Normal [facility] Comment on above: Order Comment: Speci men Type: VENOUS BLOOD SPECIMENOrdering Facility: [facility] Address: [address] [place] [address] Performed By: #### 2 4344-4 ####[facility] [id number] [place] [address] [place] Order Comment: Speci men Type: ARTERIAL BLOOD SPECIMENOrdering Facility: [facility] Address: [address] [place] [address] Performed By: #### A LLBG ####[facility] [id number] [place] [address] [place] Calcium.ionized (Bld) [Mass/Vol] 1.16 mmol/L Normal 1.08-1.30 [facility] Comment on above: Order Comment: Speci men Type: VENOUS BLOOD SPECIMENOrdering Facility: [facility] Address: [address] [place] [address] Performed By: #### 2 4344-4 ####[facility] [id number] [place] [address] [place] Order Comment: Speci men Type: ARTERIAL BLOOD SPECIMENOrdering Facility: [facility] Address: [address] [place] [address] Performed By: #### A LLBG ####[facility] [id number] [place] [address] [place] O2 THERAPY Positive Normal [facility] Comment on above: Order Comment: Speci men Type: VENOUS BLOOD SPECIMENOrdering Facility: [facility] Address: [address] [place] [address] Performed By: #### 2 4344-4 ####[facility] [id number] [place] [address] [place] Order Comment: Speci men Type: ARTERIAL BLOOD SPECIMENOrdering Facility: [facility] Address: [address] [place] [address] Performed By: #### A LLBG ####[facility] [id number] [place] [address] [place] Body temperature 98.6 [degF] Normal [facility] Comment on above: Order Comment: Speci men Type: VENOUS BLOOD SPECIMENOrdering Facility: [facility] Address: [address] [place] [address] Performed By: #### 2 4344-4 ####[facility] [id number] [place] [address] [place] Order Comment: Speci men Type: ARTERIAL BLOOD SPECIMENOrdering Facility: [facility] Address: [address] [place] [address] Performed By: #### A LLBG ####[facility] [id number] [place] [address] [place] Lactate [Moles/Vol] 1.2 mmol/L Normal 0.5-2.2 [facility] Comment on above: Order Comment: Speci men Type: VENOUS BLOOD SPECIMENOrdering Facility: [facility] Address: [address] [place] [address] Performed By: #### 2 4344-4 ####[facility] [id number] [place] [id number] [place] Order Comment: Speci men Type: ARTERIAL BLOOD SPECIMENOrdering Facility: [facility] Address: [address] [place] [address] Performed By: #### A LLBG ####[facility] [id number] [place] [address] [place] LITERS 3 Liters/min Normal [facility] Comment on above: Order Comment: Speci men Type: VENOUS BLOOD SPECIMENOrdering Facility: [facility] Address: [address] [place] [address] Performed By: #### 2 4344-4 ####[facility] [id number] [place] [address] [place] Order Comment: Speci men Type: ARTERIAL BLOOD SPECIMENOrdering Facility: [facility] Address: [address] [place] [address] Performed By: #### A LLBG ####[facility] [id number] [place] [address] [place] O2 THERAPY Positive Normal [facility] Comment on above: Order Comment: Speci men Type: VENOUS BLOOD SPECIMENOrdering Facility: [facility] Address: [address] [place] [address] Performed By: #### 2 4344-4 ####[facility] [id number] [place] [address] [place] Order Comment: Speci men Type: ARTERIAL BLOOD SPECIMENOrdering Facility: [facility] Address: [address] [place] [address] Performed By: #### A LLBG ####[facility] [id number] [place] [id number] [place] Hemoglobin (Bld) [Mass/Vol] 10.3 g/dL Low 13.0-17.0 [facility] Comment on above: Order Comment: Speci men Type: VENOUS BLOOD SPECIMENOrdering Facility: [facility] Address: [address] [place] [address] Performed By: #### 2 4344-4 ####[facility] [id number] [place] [address] [place] Order Comment: Speci men Type: BLOOD SPECIMENOrdering Facility: [facility] Address: [address] [place] [address] Performed By: #### 5 8410-2 ####[facility] [id number] [place] [address] [place] Gas and Carbon monoxide pane l (BldV)on 01-25-2024 Base excess Calc (BldV) [Moles/Vol] 6 mmol/L High 0-2 [facility] Comment on above: Order Comment: Speci men Type: VENOUS BLOOD SPECIMENOrdering Facility: [facility] Address: [address] [place] [address] Performed By: #### 2 4344-4 ####[facility] [id number] [place] [address] [place] Calcium.ionized adjusted to pH 7.4 (BldA) [Moles/Vol] 1.17 mmol/L Normal 1.08-1.30 [facility] Comment on above: Order Comment: Speci men Type: VENOUS BLOOD SPECIMENOrdering Facility: [facility] Address: [address] [place] [address] Performed By: #### 2 4344-4 ####[facility] [id number] [place] [address] [place] Carboxyhemoglobin (BldV) [Mass fraction] 1.6 % Normal 0.0-2.0 [facility] Comment on above: Order Comment: Speci men Type: VENOUS BLOOD SPECIMENOrdering Facility: [facility] Address: [address] [place] [id number] Result Comment: Carb oxyhemoglobin Reference Range for Smokers: 2.0-8.0% Performed By: #### 2 4344-4 ####[facility] [id number] [address] [address] [place] CO2 (BldV) [Partial pressure] 52 mm[Hg] Normal 42-55 [facility] Comment on above: Order Comment: Speci men Type: VENOUS BLOOD SPECIMENOrdering Facility: [facility] Address: [address] [place] [address] Performed By: #### 2 4344-4 ####[facility] [id number] [place] [address] [place] DATE/TIME NOTIFIED [id number] PM Normal [facility] Comment on above: Order Comment: Speci men Type: VENOUS BLOOD SPECIMENOrdering Facility: [facility] Address: [address] [place] [address] Performed By: #### 2 4344-4 ####[facility] [id number] [place] [address] [place] Glucose [Mass/Vol] 124 mg/dL High 60-105 [facility] Comment on above: Order Comment: Speci men Type: VENOUS BLOOD SPECIMENOrdering Facility: [facility] Address: [address] [place] [id number] Performed By: #### 2 4344-4 ####[facility] [id number] [address] [address] [place] HCO3 (Bld) [Moles/Vol] 31 mmol/L High 24-28 [facility] Comment on above: Order Comment: Speci men Type: VENOUS BLOOD SPECIMENOrdering Facility: [facility] Address: [address] [place], [place] [address] Performed By: #### 2 4344-4 ####[facility] [id number] [place] [address] [place] Hematocrit (Bld) [Volume fraction] 32.0 % Low 39.0-51.0 [facility] Comment on above: Order Comment: Speci men Type: VENOUS BLOOD SPECIMENOrdering Facility: [facility] Address: [address] [place] [address] Performed By: #### 2 4344-4 ####[facility] [id number] [place] [address] [place] Hemoglobin (Bld) [Mass/Vol] 10.4 g/dL Low 13.0-17.0 [facility] Comment on above: Order Comment: Speci men Type: VENOUS BLOOD SPECIMENOrdering Facility: [facility] Address: [address] [place] [address] Performed By: #### 2 4344-4 ####[facility] [id number] [place] [address] [place] Lactate [Moles/Vol] 1.1 mmol/L Normal 0.5-2.2 [facility] Comment on above: Order Comment: Speci men Type: VENOUS BLOOD SPECIMENOrdering Facility: [facility] Address: [address] [place] [address] Performed By: #### 2 4344-4 ####[facility] [id number] [place] [address] [place] Methemoglobin (Bld) [Mass fraction] 0.8 % Normal 0.0-1.5 [facility] Comment on above: Order Comment: Speci men Type: VENOUS BLOOD SPECIMENOrdering Facility: [facility] Address: [address] [place] [address] Performed By: #### 2 4344-4 ####[facility] [id number] [place] [address] [place] NOTIFIED WHOM NO CALL Q50 MITUL Normal [facility] Comment on above: Order Comment: Speci men Type: VENOUS BLOOD SPECIMENOrdering Facility: [facility] Address: [address] [place] [id number] Performed By: #### 2 4344-4 ####[facility] [id number] [address] [address] [place] Oxygen (BldV) [Partial pressure] 40 mm[Hg] Normal 35-45 [facility] Comment on above: Order Comment: Speci men Type: VENOUS BLOOD SPECIMENOrdering Facility: [facility] Address: [address] [place], [place] [address] Performed By: #### 2 4344-4 ####[facility] [id number] [place] [address] [place] Oxygen saturation in Venous blood 72 % Normal 60-85 [facility] Comment on above: Order Comment: Speci men Type: VENOUS BLOOD SPECIMENOrdering Facility: [facility] Address: [address] [place] [address] Performed By: #### 2 4344-4 ####[facility] [id number] [place] [address] [place] Oxyhemoglobin (BldV) [Mass fraction] 70 % Normal 60-85 [facility] Comment on above: Order Comment: Speci men Type: VENOUS BLOOD SPECIMENOrdering Facility: [facility] Address: [address] [place] [address] Performed By: #### 2 4344-4 ####[facility] [id number] [address] [address] [place] pH (BldV) 7.39 [pH] Normal 7.32-7.42 [facility] Comment on above: Order Comment: Speci men Type: VENOUS BLOOD SPECIMENOrdering Facility: [facility] Address: [address] [place], [place] [address] Performed By: #### 2 4344-4 ####[facility] [id number] [place] [address] [place] Potassium [Moles/Vol] 4.4 mmol/L Normal 3.5-5.0 [facility] Comment on above: Order Comment: Speci men Type: VENOUS BLOOD SPECIMENOrdering Facility: [facility] Address: [address] [place] [address] Performed By: #### 2 4344-4 ####[facility] [id number] [place] [address] [place] Base excess Calc (BldV) [Moles/Vol] 6 mmol/L High 0-2 [facility] Comment on above: Order Comment: Speci men Type: VENOUS BLOOD SPECIMENOrdering Facility: [facility] Address: [address] [place] [address] Performed By: #### 2 4344-4 ####[facility] [id number] [place] [address] [place] Calcium.ionized adjusted to pH 7.4 (BldA) [Moles/Vol] 1.15 mmol/L Normal 1.08-1.30 [facility] Comment on above: Order Comment: Speci men Type: VENOUS BLOOD SPECIMENOrdering Facility: [facility] Address: [address] [place] [address] Performed By: #### 2 4344-4 ####[facility] [id number] [place] [address] [place] Carboxyhemoglobin (BldV) [Mass fraction] 1.6 % Normal 0.0-2.0 [facility] Comment on above: Order Comment: Speci men Type: VENOUS BLOOD SPECIMENOrdering Facility: [facility] Address: [address] [place] [address] Result Comment: Carb oxyhemoglobin Reference Range for Smokers: 2.0-8.0% Performed By: #### 2 4344-4 ####[facility] [id number] [place] [id number] [place] CO2 (BldV) [Partial pressure] 52 mm[Hg] Normal 42-55 [facility] Comment on above: Order Comment: Speci men Type: VENOUS BLOOD SPECIMENOrdering Facility: [facility] Address: [address] [place] [address] Performed By: #### 2 4344-4 ####[facility] [id number] [place] [address] [place] Glucose [Mass/Vol] 128 mg/dL High 60-105 [facility] Comment on above: Order Comment: Speci men Type: VENOUS BLOOD SPECIMENOrdering Facility: [facility] Address: [address] [place] [address] Performed By: #### 2 4344-4 ####[facility] [id number] [place] [address] [place] HCO3 (Bld) [Moles/Vol] 31 mmol/L High 24-28 [facility] Comment on above: Order Comment: Speci men Type: VENOUS BLOOD SPECIMENOrdering Facility: [facility] Address: [address] [place] [address] Performed By: #### 2 4344-4 ####[facility] [id number] [place] [address] [place] Hematocrit (Bld) [Volume fraction] 33.1 % Low 39.0-51.0 [facility] Comment on above: Order Comment: Speci men Type: VENOUS BLOOD SPECIMENOrdering Facility: [facility] Address: [address] [place] [address] Performed By: #### 2 4344-4 ####[facility] [id number] [place] [address] [place] Hemoglobin (Bld) [Mass/Vol] 10.7 g/dL Low 13.0-17.0 [facility] Comment on above: Order Comment: Speci men Type: VENOUS BLOOD SPECIMENOrdering Facility: [facility] Address: [address] [place] [id number] Performed By: #### 2 4344-4 ####[facility] [id number] [place] [address] [place] Lactate [Moles/Vol] 1.1 mmol/L Normal 0.5-2.2 [facility] Comment on above: Order Comment: Speci men Type: VENOUS BLOOD SPECIMENOrdering Facility: [facility] Address: [address] [place], [place] [address] Performed By: #### 2 4344-4 ####[facility] [id number] [place] [address] [place] Methemoglobin (Bld) [Mass fraction] 1.4 % Normal 0.0-1.5 [facility] Comment on above: Order Comment: Speci men Type: VENOUS BLOOD SPECIMENOrdering Facility: [facility] Address: [address] [place] [address] Performed By: #### 2 4344-4 ####[facility] [id number] [place] [address] [place] Oxygen (BldV) [Partial pressure] 40 mm[Hg] Normal 35-45 [facility] Comment on above: Order Comment: Speci men Type: VENOUS BLOOD SPECIMENOrdering Facility: [facility] Address: [address] [place], [place] [address] Performed By: #### 2 4344-4 ####[facility] [id number] [place] [id number] [place] Oxygen saturation in Venous blood 72 % Normal 60-85 [facility] Comment on above: Order Comment: Speci men Type: VENOUS BLOOD SPECIMENOrdering Facility: [facility] Address: [address] [place], [place] [address] Performed By: #### 2 4344-4 ####[facility] [id number] [place] [address] [place] Oxyhemoglobin (BldV) [Mass fraction] 70 % Normal 60-85 [facility] Comment on above: Order Comment: Speci men Type: VENOUS BLOOD SPECIMENOrdering Facility: [facility] Address: [address] [place] [address] Performed By: #### 2 4344-4 ####[facility] [id number] [place] [address] [place] pH (BldV) 7.39 [pH] Normal 7.32-7.42 [facility] Comment on above: Order Comment: Speci men Type: VENOUS BLOOD SPECIMENOrdering Facility: [facility] Address: [address] [place] [address] Performed By: #### 2 4344-4 ####[facility] [id number] [place] [address] [place] Sodium [Moles/Vol] 139 mmol/L Normal 136-144 [facility] Comment on above: Order Comment: Speci men Type: VENOUS BLOOD SPECIMENOrdering Facility: [facility] Address: [address] [place] [address] Performed By: #### 2 4344-4 ####[facility] [id number] [place] [address] [place] Base excess Calc (BldV) [Moles/Vol] 4 mmol/L High 0-2 [facility] Comment on above: Order Comment: Speci men Type: VENOUS BLOOD SPECIMENOrdering Facility: [facility] Address: [address] [place] [address] Performed By: #### 2 4344-4 ####[facility] [id number] [place] [address] [place] Calcium.ionized (Bld) [Mass/Vol] 1.19 mmol/L Normal 1.08-1.30 [facility] Comment on above: Order Comment: Speci men Type: VENOUS BLOOD SPECIMENOrdering Facility: [facility] Address: [address] [place] [address] Performed By: #### 2 4344-4 ####[facility] [id number] [place] [address] [place] Calcium.ionized adjusted to pH 7.4 (BldA) [Moles/Vol] 1.18 mmol/L Normal 1.08-1.30 [facility] Comment on above: Order Comment: Speci men Type: VENOUS BLOOD SPECIMENOrdering Facility: [facility] Address: [address] [place] [address] Performed By: #### 2 4344-4 ####[facility] [id number] [place] [address] [place] Carboxyhemoglobin (BldV) [Mass fraction] 1.4 % Normal 0.0-2.0 [facility] Comment on above: Order Comment: Speci men Type: VENOUS BLOOD SPECIMENOrdering Facility: [facility] Address: [address] [place] [address] Result Comment: Carb oxyhemoglobin Reference Range for Smokers: 2.0-8.0% Performed By: #### 2 4344-4 ####[facility] [id number] [place] [address] [place] CO2 (BldV) [Partial pressure] 53 mm[Hg] Normal 42-55 [facility] Comment on above: Order Comment: Speci men Type: VENOUS BLOOD SPECIMENOrdering Facility: [facility] Address: [address] [place] [id number] Performed By: #### 2 4344-4 ####[facility] [id number] [place] [address] [place] Glucose [Mass/Vol] 125 mg/dL High 60-105 [facility] Comment on above: Order Comment: Speci men Type: VENOUS BLOOD SPECIMENOrdering Facility: [facility] Address: [address] [place] [address] Performed By: #### 2 4344-4 ####[facility] [id number] [place] [address] [place] HCO3 (Bld) [Moles/Vol] 30 mmol/L High 24-28 [facility] Comment on above: Order Comment: Speci men Type: VENOUS BLOOD SPECIMENOrdering Facility: [facility] Address: [address] [place] [address] Performed By: #### 2 4344-4 ####[facility] [id number] [place] [address] [place] Hematocrit (Bld) [Volume fraction] 31.9 % Low 39.0-51.0 [facility] Comment on above: Order Comment: Speci men Type: VENOUS BLOOD SPECIMENOrdering Facility: [facility] Address: [address] [place] [address] Performed By: #### 2 4344-4 ####[facility] [id number] [place] [address] [place] Hemoglobin (Bld) [Mass/Vol] 10.3 g/dL Low 13.0-17.0 [facility] Comment on above: Order Comment: Speci men Type: VENOUS BLOOD SPECIMENOrdering Facility: [facility] Address: [address] [place] [address] Performed By: #### 2 4344-4 ####[facility] [id number] [place] [address] [place] Methemoglobin (Bld) [Mass fraction] 0.8 % Normal 0.0-1.5 [facility] Comment on above: Order Comment: Speci men Type: VENOUS BLOOD SPECIMENOrdering Facility: [facility] Address: [address] [place] [address] Performed By: #### 2 4344-4 ####[facility] [id number] [place] [address] [place] Oxygen (BldV) [Partial pressure] 43 mm[Hg] Normal 35-45 [facility] Comment on above: Order Comment: Speci men Type: VENOUS BLOOD SPECIMENOrdering Facility: [facility] Address: [address] [place], [place] [address] Performed By: #### 2 4344-4 ####[facility] [id number] [place] [address] [place] Oxygen saturation in Venous blood 74 % Normal 60-85 [facility] Comment on above: Order Comment: Speci men Type: VENOUS BLOOD SPECIMENOrdering Facility: [facility] Address: [address] [place] [address] Performed By: #### 2 4344-4 ####[facility] [id number] [place] [address] [place] Oxyhemoglobin (BldV) [Mass fraction] 73 % Normal 60-85 [facility] Comment on above: Order Comment: Speci men Type: VENOUS BLOOD SPECIMENOrdering Facility: [facility] Address: [address] [place], [place] [address] Performed By: #### 2 4344-4 ####[facility] [id number] [place] [address] [place] pH (BldV) 7.37 [pH] Normal 7.32-7.42 [facility] Comment on above: Order Comment: Speci men Type: VENOUS BLOOD SPECIMENOrdering Facility: [facility] Address: [address] [place] [address] Performed By: #### 2 4344-4 ####[facility] [id number] [place] [id number] [place] Potassium [Moles/Vol] 4.4 mmol/L Normal 3.5-5.0 [facility] Comment on above: Order Comment: Speci men Type: VENOUS BLOOD SPECIMENOrdering Facility: [facility] Address: [address] [place] [address] Performed By: #### 2 4344-4 ####[facility] [id number] [place] [address] [place] Base excess Calc (BldV) [Moles/Vol] 4 mmol/L High 0-2 [facility] Comment on above: Order Comment: Speci men Type: VENOUS BLOOD SPECIMENOrdering Facility: [facility] Address: [address] [place] [address] Performed By: #### 2 4344-4 ####[facility] [id number] [place] [address] [place] Body temperature 98.6 [degF] Normal [facility] Comment on above: Order Comment: Speci men Type: VENOUS BLOOD SPECIMENOrdering Facility: [facility] Address: [address] [place] [address] Performed By: #### 2 4344-4 ####[facility] [id number] [place] [address] [place] Calcium.ionized (Bld) [Mass/Vol] 1.20 mmol/L Normal 1.08-1.30 [facility] Comment on above: Order Comment: Speci men Type: VENOUS BLOOD SPECIMENOrdering Facility: [facility] Address: [address] [place] [address] Performed By: #### 2 4344-4 ####[facility] [id number] [place] [address] [place] Calcium.ionized adjusted to pH 7.4 (BldA) [Moles/Vol] 1.18 mmol/L Normal 1.08-1.30 [facility] Comment on above: Order Comment: Speci men Type: VENOUS BLOOD SPECIMENOrdering Facility: [facility] Address: [address] [place] [address] Performed By: #### 2 4344-4 ####[facility] [id number] [place] [address] [place] Carboxyhemoglobin (BldV) [Mass fraction] 1.7 % Normal 0.0-2.0 [facility] Comment on above: Order Comment: Speci men Type: VENOUS BLOOD SPECIMENOrdering Facility: [facility] Address: [address] [place] [address] Result Comment: Carb oxyhemoglobin Reference Range for Smokers: 2.0-8.0% Performed By: #### 2 4344-4 ####[facility] [id number] [place] [address] [place] CO2 (BldV) [Partial pressure] 50 mm[Hg] Normal 42-55 [facility] Comment on above: Order Comment: Speci men Type: VENOUS BLOOD SPECIMENOrdering Facility: [facility] Address: [address] [place] [address] Performed By: #### 2 4344-4 ####[facility] [id number] [place] [address] [place] Glucose [Mass/Vol] 126 mg/dL High 60-105 [facility] Comment on above: Order Comment: Speci men Type: VENOUS BLOOD SPECIMENOrdering Facility: [facility] Address: [address] [place] [address] Performed By: #### 2 4344-4 ####[facility] [id number] [place] [address] [place] HCO3 (Bld) [Moles/Vol] 29 mmol/L High 24-28 [facility] Comment on above: Order Comment: Speci men Type: VENOUS BLOOD SPECIMENOrdering Facility: [facility] Address: [address] [place] [address] Performed By: #### 2 4344-4 ####[facility] [id number] [place] [address] [place] Hematocrit (Bld) [Volume fraction] 31.8 % Low 39.0-51.0 [facility] Comment on above: Order Comment: Speci men Type: VENOUS BLOOD SPECIMENOrdering Facility: [facility] Address: [address] [place] [address] Performed By: #### 2 4344-4 ####[facility] [id number] [place] [address] [place] Hemoglobin (Bld) [Mass/Vol] 10.3 g/dL Low 13.0-17.0 [facility] Comment on above: Order Comment: Speci men Type: VENOUS BLOOD SPECIMENOrdering Facility: [facility] Address: [address] [place] [address] Performed By: #### 2 4344-4 ####[facility] [id number] [place] [address] [place] Lactate [Moles/Vol] 1.2 mmol/L Normal 0.5-2.2 [facility] Comment on above: Order Comment: Speci men Type: VENOUS BLOOD SPECIMENOrdering Facility: [facility] Address: [address] [place] [address] Performed By: #### 2 4344-4 ####[facility] [id number] [place] [address] [place] LITERS 3 Liters/min Normal [facility] Comment on above: Order Comment: Speci men Type: VENOUS BLOOD SPECIMENOrdering Facility: [facility] Address: [address] [place] [address] Performed By: #### 2 4344-4 ####[facility] [id number] [place] [address] [place] Methemoglobin (Bld) [Mass fraction] 0.9 % Normal 0.0-1.5 [facility] Comment on above: Order Comment: Speci men Type: VENOUS BLOOD SPECIMENOrdering Facility: [facility] Address: [address] [place], [place] [address] Performed By: #### 2 4344-4 ####[facility] [id number] [place] [address] [place] O2 THERAPY NC = Nasal Cannula Normal [facility] Comment on above: Order Comment: Speci men Type: VENOUS BLOOD SPECIMENOrdering Facility: [facility] Address: [address] [place] [address] Performed By: #### 2 4344-4 ####[facility] [id number] [place] [address] [place] Oxygen (BldV) [Partial pressure] 47 mm[Hg] High 35-45 [facility] Comment on above: Order Comment: Speci men Type: VENOUS BLOOD SPECIMENOrdering Facility: [facility] Address: [address] [place] [address] Performed By: #### 2 4344-4 ####[facility] [id number] [place] [address] [place] Oxygen saturation in Venous blood 81 % Normal 60-85 [facility] Comment on above: Order Comment: Speci men Type: VENOUS BLOOD SPECIMENOrdering Facility: [facility] Address: [address] [place], [place] [address] Performed By: #### 2 4344-4 ####[facility] [id number] [place] [address] [place] Oxyhemoglobin (BldV) [Mass fraction] 79 % Normal 60-85 [facility] Comment on above: Order Comment: Speci men Type: VENOUS BLOOD SPECIMENOrdering Facility: [facility] Address: [address] [place], [place] [address] Performed By: #### 2 4344-4 ####[facility] [id number] [place] [id number] [place] pH (BldV) 7.38 [pH] Normal 7.32-7.42 [facility] Comment on above: Order Comment: Speci men Type: VENOUS BLOOD SPECIMENOrdering Facility: [facility] Address: [address] [place] [address] Performed By: #### 2 4344-4 ####[facility] [id number] [place] [address] [place] Sodium [Moles/Vol] 139 mmol/L Normal 136-144 [facility] Comment on above: Order Comment: Speci men Type: VENOUS BLOOD SPECIMENOrdering Facility: [facility] Address: [address] [place] [address] Performed By: #### 2 4344-4 ####[facility] [id number] [place] [address] [place] Base excess Calc (BldV) [Moles/Vol] 3 mmol/L High 0-2 [facility] Comment on above: Order Comment: Speci men Type: VENOUS BLOOD SPECIMENOrdering Facility: [facility] Address: [address] [place] [address] Performed By: #### 2 4344-4 ####[facility] [id number] [place] [address] [place] Calcium.ionized (Bld) [Mass/Vol] 1.17 mmol/L Normal 1.08-1.30 [facility] Comment on above: Order Comment: Speci men Type: VENOUS BLOOD SPECIMENOrdering Facility: [facility] Address: [address] [place] [address] Performed By: #### 2 4344-4 ####[facility] [id number] [place] [address] [place] Calcium.ionized adjusted to pH 7.4 (BldA) [Moles/Vol] 1.16 mmol/L Normal 1.08-1.30 [facility] Comment on above: Order Comment: Speci men Type: VENOUS BLOOD SPECIMENOrdering Facility: [facility] Address: [address] [place] [id number] Performed By: #### 2 4344-4 ####[facility] [id number] [place] [address] [place] Carboxyhemoglobin (BldV) [Mass fraction] 1.2 % Normal 0.0-2.0 [facility] Comment on above: Order Comment: Speci men Type: VENOUS BLOOD SPECIMENOrdering Facility: [facility] Address: [address] [place] [address] Result Comment: Carb oxyhemoglobin Reference Range for Smokers: 2.0-8.0% Performed By: #### 2 4344-4 ####[facility] [id number] [place] [address] [place] CO2 (BldV) [Partial pressure] 49 mm[Hg] Normal 42-55 [facility] Comment on above: Order Comment: Speci men Type: VENOUS BLOOD SPECIMENOrdering Facility: [facility] Address: [address] [place] [address] Performed By: #### 2 4344-4 ####[facility] [id number] [place] [address] [place] Glucose [Mass/Vol] 132 mg/dL High 60-105 [facility] Comment on above: Order Comment: Speci men Type: VENOUS BLOOD SPECIMENOrdering Facility: [facility] Address: [address] [place] [address] Performed By: #### 2 4344-4 ####[facility] [id number] [place] [address] [place] Hematocrit (Bld) [Volume fraction] 32.4 % Low 39.0-51.0 [facility] Comment on above: Order Comment: Speci men Type: VENOUS BLOOD SPECIMENOrdering Facility: [facility] Address: [address] [place] [address] Performed By: #### 2 4344-4 ####[facility] [id number] [place] [address] [place] Hemoglobin (Bld) [Mass/Vol] 10.5 g/dL Low 13.0-17.0 [facility] Comment on above: Order Comment: Speci men Type: VENOUS BLOOD SPECIMENOrdering Facility: [facility] Address: [address] [place] [address] Performed By: #### 2 4344-4 ####[facility] [id number] [place] [address] [place] Methemoglobin (Bld) [Mass fraction] 0.6 % Normal 0.0-1.5 [facility] Comment on above: Order Comment: Speci men Type: VENOUS BLOOD SPECIMENOrdering Facility: [facility] Address: [address] [place] [address] Performed By: #### 2 4344-4 ####[facility] [id number] [place] [address] [place] Oxygen (BldV) [Partial pressure] 44 mm[Hg] Normal 35-45 [facility] Comment on above: Order Comment: Speci men Type: VENOUS BLOOD SPECIMENOrdering Facility: [facility] Address: [address] [place] [address] Performed By: #### 2 4344-4 ####[facility] [id number] [place] [address] [place] Oxygen saturation in Venous blood 78 % Normal 60-85 [facility] Comment on above: Order Comment: Speci men Type: VENOUS BLOOD SPECIMENOrdering Facility: [facility] Address: [address] [place] [address] Performed By: #### 2 4344-4 ####[facility] [id number] [place] [id number] [place] Oxyhemoglobin (BldV) [Mass fraction] 77 % Normal 60-85 [facility] Comment on above: Order Comment: Speci men Type: VENOUS BLOOD SPECIMENOrdering Facility: [facility] Address: [address] [place] [address] Performed By: #### 2 4344-4 ####[facility] [id number] [place] [address] [place] pH (BldV) 7.38 [pH] Normal 7.32-7.42 [facility] Comment on above: Order Comment: Speci men Type: VENOUS BLOOD SPECIMENOrdering Facility: [facility] Address: [address] [place] [address] Performed By: #### 2 4344-4 ####[facility] [id number] [place] [address] [place] Base excess Calc (BldV) [Moles/Vol] 4 mmol/L High 0-2 [facility] Comment on above: Order Comment: Speci men Type: VENOUS BLOOD SPECIMENOrdering Facility: [facility] Address: [address] [place] [address] Performed By: #### 2 4344-4 ####[facility] [id number] [place] [address] [place] Calcium.ionized (Bld) [Mass/Vol] 1.19 mmol/L Normal 1.08-1.30 [facility] Comment on above: Order Comment: Speci men Type: VENOUS BLOOD SPECIMENOrdering Facility: [facility] Address: [address] [place] [address] Performed By: #### 2 4344-4 ####[facility] [id number] [place] [address] [place] Calcium.ionized adjusted to pH 7.4 (BldA) [Moles/Vol] 1.19 mmol/L Normal 1.08-1.30 [facility] Comment on above: Order Comment: Speci men Type: VENOUS BLOOD SPECIMENOrdering Facility: [facility] Address: [address] [place] [address] Performed By: #### 2 4344-4 ####[facility] [id number] [place] [address] [place] Carboxyhemoglobin (BldV) [Mass fraction] 1.3 % Normal 0.0-2.0 [facility] Comment on above: Order Comment: Speci men Type: VENOUS BLOOD SPECIMENOrdering Facility: [facility] Address: [address] [place] [address] Result Comment: Carb oxyhemoglobin Reference Range for Smokers: 2.0-8.0% Performed By: #### 2 4344-4 ####[facility] [id number] [place] [address] [place] CO2 (BldV) [Partial pressure] 47 mm[Hg] Normal 42-55 [facility] Comment on above: Order Comment: Speci men Type: VENOUS BLOOD SPECIMENOrdering Facility: [facility] Address: [address] [place] [address] Performed By: #### 2 4344-4 ####[facility] [id number] [place] [address] [place] Glucose [Mass/Vol] 127 mg/dL High 60-105 [facility] Comment on above: Order Comment: Speci men Type: VENOUS BLOOD SPECIMENOrdering Facility: [facility] Address: [address] [place] [address] Performed By: #### 2 4344-4 ####[facility] [id number] [place] [address] [place] HCO3 (Bld) [Moles/Vol] 29 mmol/L High 24-28 [facility] Comment on above: Order Comment: Speci men Type: VENOUS BLOOD SPECIMENOrdering Facility: [facility] Address: [address] [place] [address] Performed By: #### 2 4344-4 ####[facility] [id number] [place] [address] [place] Hematocrit (Bld) [Volume fraction] 32.1 % Low 39.0-51.0 [facility] Comment on above: Order Comment: Speci men Type: VENOUS BLOOD SPECIMENOrdering Facility: [facility] Address: [address] [place] [address] Performed By: #### 2 4344-4 ####[facility] [id number] [place] [address] [place] Hemoglobin (Bld) [Mass/Vol] 10.4 g/dL Low 13.0-17.0 [facility] Comment on above: Order Comment: Speci men Type: VENOUS BLOOD SPECIMENOrdering Facility: [facility] Address: [address] [place] [address] Performed By: #### 2 4344-4 ####[facility] [id number] [place] [address] [place] Methemoglobin (Bld) [Mass fraction] 0.8 % Normal 0.0-1.5 [facility] Comment on above: Order Comment: Speci men Type: VENOUS BLOOD SPECIMENOrdering Facility: [facility] Address: [address] [place] [address] Performed By: #### 2 4344-4 ####[facility] [id number] [place] [address] [place] Oxygen (BldV) [Partial pressure] 41 mm[Hg] Normal 35-45 [facility] Comment on above: Order Comment: Speci men Type: VENOUS BLOOD SPECIMENOrdering Facility: [facility] Address: [address] [place] [address] Performed By: #### 2 4344-4 ####[facility] [id number] [place] [address] [place] Oxygen saturation in Venous blood 73 % Normal 60-85 [facility] Comment on above: Order Comment: Speci men Type: VENOUS BLOOD SPECIMENOrdering Facility: [facility] Address: [address] [place] [address] Performed By: #### 2 4344-4 ####[facility] [id number] [address] [address] [place] Oxyhemoglobin (BldV) [Mass fraction] 71 % Normal 60-85 [facility] Comment on above: Order Comment: Speci men Type: VENOUS BLOOD SPECIMENOrdering Facility: [facility] Address: [address] [place] [address] Performed By: #### 2 4344-4 ####[facility] [id number] [place] [address] [place] pH (BldV) 7.41 [pH] Normal 7.32-7.42 [facility] Comment on above: Order Comment: Speci men Type: VENOUS BLOOD SPECIMENOrdering Facility: [facility] Address: [address] [place] [address] Performed By: #### 2 4344-4 ####[facility] [id number] [place] [address] [place] Base excess Calc (BldV) [Moles/Vol] 5 mmol/L High 0-2 [facility] Comment on above: Order Comment: Speci men Type: VENOUS BLOOD SPECIMENOrdering Facility: [facility] Address: [address] [place] [address] Performed By: #### 2 4344-4 ####[facility] [id number] [place] [address] [place] Calcium.ionized adjusted to pH 7.4 (BldA) [Moles/Vol] 1.19 mmol/L Normal 1.08-1.30 [facility] Comment on above: Order Comment: Speci men Type: VENOUS BLOOD SPECIMENOrdering Facility: [facility] Address: [address] [place] [address] Performed By: #### 2 4344-4 ####[facility] [id number] [place] [address] [place] Carboxyhemoglobin (BldV) [Mass fraction] 1.4 % Normal 0.0-2.0 [facility] Comment on above: Order Comment: Speci men Type: VENOUS BLOOD SPECIMENOrdering Facility: [facility] Address: [address] [place] [address] Result Comment: Carb oxyhemoglobin Reference Range for Smokers: 2.0-8.0% Performed By: #### 2 4344-4 ####[facility] [id number] [place] [address] [place] CO2 (BldV) [Partial pressure] 45 mm[Hg] Normal 42-55 [facility] Comment on above: Order Comment: Speci men Type: VENOUS BLOOD SPECIMENOrdering Facility: [facility] Address: [address] [place] [address] Performed By: #### 2 4344-4 ####[facility] [id number] [place] [address] [place] Glucose [Mass/Vol] 99 mg/dL Normal 60-105 [facility] Comment on above: Order Comment: Speci men Type: VENOUS BLOOD SPECIMENOrdering Facility: [facility] Address: [address] [place] [address] Performed By: #### 2 4344-4 ####[facility] [id number] [place] [id number] [place] HCO3 (Bld) [Moles/Vol] 29 mmol/L High 24-28 [facility] Comment on above: Order Comment: Speci men Type: VENOUS BLOOD SPECIMENOrdering Facility: [facility] Address: [address] [place], [place] [address] Performed By: #### 2 4344-4 ####[facility] [id number] [place] [address] [place] Hematocrit (Bld) [Volume fraction] 32.5 % Low 39.0-51.0 [facility] Comment on above: Order Comment: Speci men Type: VENOUS BLOOD SPECIMENOrdering Facility: [facility] Address: [address] [place] [address] Performed By: #### 2 4344-4 ####[facility] [id number] [place] [address] [place] Hemoglobin (Bld) [Mass/Vol] 10.5 g/dL Low 13.0-17.0 [facility] Comment on above: Order Comment: Speci men Type: VENOUS BLOOD SPECIMENOrdering Facility: [facility] Address: [address] [place] [address] Performed By: #### 2 4344-4 ####[facility] [id number] [place] [address] [place] Lactate [Moles/Vol] 1.1 mmol/L Normal 0.5-2.2 [facility] Comment on above: Order Comment: Speci men Type: VENOUS BLOOD SPECIMENOrdering Facility: [facility] Address: [address] [place] [address] Performed By: #### 2 4344-4 ####[facility] [id number] [place] [address] [place] Oxygen (BldV) [Partial pressure] 45 mm[Hg] Normal 35-45 [facility] Comment on above: Order Comment: Speci men Type: VENOUS BLOOD SPECIMENOrdering Facility: [facility] Address: [address] [place] [address] Performed By: #### 2 4344-4 ####[facility] [id number] [place] [id number] [place] Oxygen saturation in Venous blood 79 % Normal 60-85 [facility] Comment on above: Order Comment: Speci men Type: VENOUS BLOOD SPECIMENOrdering Facility: [facility] Address: [address] [place] [address] Performed By: #### 2 4344-4 ####[facility] [id number] [address] [address] [place] Oxyhemoglobin (BldV) [Mass fraction] 78 % Normal 60-85 [facility] Comment on above: Order Comment: Speci men Type: VENOUS BLOOD SPECIMENOrdering Facility: [facility] Address: [address] [place] [address] Performed By: #### 2 4344-4 ####[facility] [id number] [place] [address] [place] pH (BldV) 7.42 [pH] Normal 7.32-7.42 [facility] Comment on above: Order Comment: Speci men Type: VENOUS BLOOD SPECIMENOrdering Facility: [facility] Address: [address] [place] [address] Performed By: #### 2 4344-4 ####[facility] [id number] [place] [address] [place] Potassium [Moles/Vol] 4.0 mmol/L Normal 3.5-5.0 [facility] Comment on above: Order Comment: Speci men Type: VENOUS BLOOD SPECIMENOrdering Facility: [facility] Address: [address] [place] [address] Performed By: #### 2 4344-4 ####[facility] [id number] [place] [address] [place] Sodium [Moles/Vol] 138 mmol/L Normal 136-144 [facility] Comment on above: Order Comment: Speci men Type: VENOUS BLOOD SPECIMENOrdering Facility: [facility] Address: [address] [place] [address] Performed By: #### 2 4344-4 ####[facility] [id number] [place] [address] [place] Base excess Calc (BldV) [Moles/Vol] 4 mmol/L High 0-2 [facility] Comment on above: Order Comment: Speci men Type: VENOUS BLOOD SPECIMENOrdering Facility: [facility] Address: [address] [place] [address] Performed By: #### 2 4344-4 ####[facility] [id number] [place] [address] [place] Calcium.ionized adjusted to pH 7.4 (BldA) [Moles/Vol] 1.19 mmol/L Normal 1.08-1.30 [facility] Comment on above: Order Comment: Speci men Type: VENOUS BLOOD SPECIMENOrdering Facility: [facility] Address: [address] [place] [address] Performed By: #### 2 4344-4 ####[facility] [id number] [place] [address] [place] Carboxyhemoglobin (BldV) [Mass fraction] 1.5 % Normal 0.0-2.0 [facility] Comment on above: Order Comment: Speci men Type: VENOUS BLOOD SPECIMENOrdering Facility: [facility] Address: [address] [place] [address] Result Comment: Carb oxyhemoglobin Reference Range for Smokers: 2.0-8.0% Performed By: #### 2 4344-4 ####[facility] [id number] [place] [address] [place] CO2 (BldV) [Partial pressure] 48 mm[Hg] Normal 42-55 [facility] Comment on above: Order Comment: Speci men Type: VENOUS BLOOD SPECIMENOrdering Facility: [facility] Address: [address] [place] [address] Performed By: #### 2 4344-4 ####[facility] [id number] [place] [address] [place] Glucose [Mass/Vol] 117 mg/dL High 60-105 [facility] Comment on above: Order Comment: Speci men Type: VENOUS BLOOD SPECIMENOrdering Facility: [facility] Address: [address] [place] [address] Performed By: #### 2 4344-4 ####[facility] [id number] [place] [address] [place] HCO3 (Bld) [Moles/Vol] 29 mmol/L High 24-28 [facility] Comment on above: Order Comment: Speci men Type: VENOUS BLOOD SPECIMENOrdering Facility: [facility] Address: [address] [place] [address] Performed By: #### 2 4344-4 ####[facility] [id number] [place] [address] [place] Hematocrit (Bld) [Volume fraction] 31.7 % Low 39.0-51.0 [facility] Comment on above: Order Comment: Speci men Type: VENOUS BLOOD SPECIMENOrdering Facility: [facility] Address: [address] [place] [address] Performed By: #### 2 4344-4 ####[facility] [id number] [place] [address] [place] Hemoglobin (Bld) [Mass/Vol] 10.3 g/dL Low 13.0-17.0 [facility] Comment on above: Order Comment: Speci men Type: VENOUS BLOOD SPECIMENOrdering Facility: [facility] Address: [address] [place] [address] Performed By: #### 2 4344-4 ####[facility] [id number] [place] [address] [place] Lactate [Moles/Vol] 1.1 mmol/L Normal 0.5-2.2 [facility] Comment on above: Order Comment: Speci men Type: VENOUS BLOOD SPECIMENOrdering Facility: [facility] Address: [address] [place] [address] Performed By: #### 2 4344-4 ####[facility] [id number] [address] [address] [place] Methemoglobin (Bld) [Mass fraction] 1.4 % Normal 0.0-1.5 [facility] Comment on above: Order Comment: Speci men Type: VENOUS BLOOD SPECIMENOrdering Facility: [facility] Address: [address] [place] [id number] Performed By: #### 2 4344-4 ####[facility] [id number] [address] [address] [place] Oxygen (BldV) [Partial pressure] 44 mm[Hg] Normal 35-45 [facility] Comment on above: Order Comment: Speci men Type: VENOUS BLOOD SPECIMENOrdering Facility: [facility] Address: [address] [place] [address] Performed By: #### 2 4344-4 ####[facility] [id number] [address] [address] [place] Oxygen saturation in Venous blood 77 % Normal 60-85 [facility] Comment on above: Order Comment: Speci men Type: VENOUS BLOOD SPECIMENOrdering Facility: [facility] Address: [address] [place] [address] Performed By: #### 2 4344-4 ####[facility] [id number] [address] [address] [place] Oxyhemoglobin (BldV) [Mass fraction] 75 % Normal 60-85 [facility] Comment on above: Order Comment: Speci men Type: VENOUS BLOOD SPECIMENOrdering Facility: [facility] Address: [address] [place] [address] Performed By: #### 2 4344-4 ####[facility] [id number] [place] [address] [place] pH (BldV) 7.39 [pH] Normal 7.32-7.42 [facility] Comment on above: Order Comment: Speci men Type: VENOUS BLOOD SPECIMENOrdering Facility: [facility] Address: [address] [place] [address] Performed By: #### 2 4344-4 ####[facility] [id number] [place] [address] [place] Potassium [Moles/Vol] 4.2 mmol/L Normal 3.5-5.0 [facility] Comment on above: Order Comment: Speci men Type: VENOUS BLOOD SPECIMENOrdering Facility: [facility] Address: [address] [place] [address] Performed By: #### 2 4344-4 ####[facility] [id number] [place] [address] [place] Sodium [Moles/Vol] 137 mmol/L Normal 136-144 [facility] Comment on above: Order Comment: Speci men Type: VENOUS BLOOD SPECIMENOrdering Facility: [facility] Address: [address] [place] [address] Performed By: #### 2 4344-4 ####[facility] [id number] [place] [address] [place] Base excess Calc (BldV) [Moles/Vol] 3 mmol/L High 0-2 [facility] Comment on above: Order Comment: Speci men Type: VENOUS BLOOD SPECIMENOrdering Facility: [facility] Address: [address] [place] [address] Performed By: #### 2 4344-4 ####[facility] [id number] [place] [address] [place] Calcium.ionized (Bld) [Mass/Vol] 1.20 mmol/L Normal 1.08-1.30 [facility] Comment on above: Order Comment: Speci men Type: VENOUS BLOOD SPECIMENOrdering Facility: [facility] Address: [address] [place] [address] Performed By: #### 2 4344-4 ####[facility] [id number] [place] [address] [place] Carboxyhemoglobin (BldV) [Mass fraction] 1.1 % Normal 0.0-2.0 [facility] Comment on above: Order Comment: Speci men Type: VENOUS BLOOD SPECIMENOrdering Facility: [facility] Address: [address] [place] [address] Result Comment: Carb oxyhemoglobin Reference Range for Smokers: 2.0-8.0% Performed By: #### 2 4344-4 ####[facility] [id number] [place] [address] [place] CO2 (BldV) [Partial pressure] 47 mm[Hg] Normal 42-55 [facility] Comment on above: Order Comment: Speci men Type: VENOUS BLOOD SPECIMENOrdering Facility: [facility] Address: [address] [place] [address] Performed By: #### 2 4344-4 ####[facility] [id number] [place] [address] [place] Glucose [Mass/Vol] 111 mg/dL High 60-105 [facility] Comment on above: Order Comment: Speci men Type: VENOUS BLOOD SPECIMENOrdering Facility: [facility] Address: [address] [place] [address] Performed By: #### 2 4344-4 ####[facility] [id number] [place] [id number] [place] HCO3 (Bld) [Moles/Vol] 28 mmol/L Normal 24-28 [facility] Comment on above: Order Comment: Speci men Type: VENOUS BLOOD SPECIMENOrdering Facility: [facility] Address: [address] [place] [address] Performed By: #### 2 4344-4 ####[facility] [id number] [place] [address] [place] Hematocrit (Bld) [Volume fraction] 31.4 % Low 39.0-51.0 [facility] Comment on above: Order Comment: Speci men Type: VENOUS BLOOD SPECIMENOrdering Facility: [facility] Address: [address] [place] [address] Performed By: #### 2 4344-4 ####[facility] [id number] [place] [address] [place] Hemoglobin (Bld) [Mass/Vol] 10.2 g/dL Low 13.0-17.0 [facility] Comment on above: Order Comment: Speci men Type: VENOUS BLOOD SPECIMENOrdering Facility: [facility] Address: [address] [place] [address] Performed By: #### 2 4344-4 ####[facility] [id number] [place] [address] [place] Methemoglobin (Bld) [Mass fraction] 0.6 % Normal 0.0-1.5 [facility] Comment on above: Order Comment: Speci men Type: VENOUS BLOOD SPECIMENOrdering Facility: [facility] Address: [address] [place] [address] Performed By: #### 2 4344-4 ####[facility] [id number] [place] [address] [place] Oxygen (BldV) [Partial pressure] 44 mm[Hg] Normal 35-45 [facility] Comment on above: Order Comment: Speci men Type: VENOUS BLOOD SPECIMENOrdering Facility: [facility] Address: [address] [place] [address] Performed By: #### 2 4344-4 ####[facility] [id number] [place] [address] [place] Oxygen saturation in Venous blood 77 % Normal 60-85 [facility] Comment on above: Order Comment: Speci men Type: VENOUS BLOOD SPECIMENOrdering Facility: [facility] Address: [address] [place], [place] [address] Performed By: #### 2 4344-4 ####[facility] [id number] [place] [address] [place] Oxyhemoglobin (BldV) [Mass fraction] 76 % Normal 60-85 [facility] Comment on above: Order Comment: Speci men Type: VENOUS BLOOD SPECIMENOrdering Facility: [facility] Address: [address] [place] [address] Performed By: #### 2 4344-4 ####[facility] [id number] [place] [address] [place] pH (BldV) 7.39 [pH] Normal 7.32-7.42 [facility] Comment on above: Order Comment: Speci men Type: VENOUS BLOOD SPECIMENOrdering Facility: [facility] Address: [address] [place] [address] Performed By: #### 2 4344-4 ####[facility] [id number] [place] [address] [place] Base excess Calc (BldV) [Moles/Vol] 2 mmol/L Normal 0-2 [facility] Comment on above: Order Comment: Speci men Type: VENOUS BLOOD SPECIMENOrdering Facility: [facility] Address: [address] [place], [place] [address] Performed By: #### 2 4344-4 ####[facility] [id number] [place] [address] [place] Calcium.ionized (Bld) [Mass/Vol] 1.19 mmol/L Normal 1.08-1.30 [facility] Comment on above: Order Comment: Speci men Type: VENOUS BLOOD SPECIMENOrdering Facility: [facility] Address: [address] [place] [address] Performed By: #### 2 4344-4 ####[facility] [id number] [place] [address] [place] Calcium.ionized adjusted to pH 7.4 (BldA) [Moles/Vol] 1.18 mmol/L Normal 1.08-1.30 [facility] Comment on above: Order Comment: Speci men Type: VENOUS BLOOD SPECIMENOrdering Facility: [facility] Address: [address] [place] [address] Performed By: #### 2 4344-4 ####[facility] [id number] [place] [address] [place] Carboxyhemoglobin (BldV) [Mass fraction] 1.7 % Normal 0.0-2.0 [facility] Comment on above: Order Comment: Speci men Type: VENOUS BLOOD SPECIMENOrdering Facility: [facility] Address: [address] [place] [address] Result Comment: Carb oxyhemoglobin Reference Range for Smokers: 2.0-8.0% Performed By: #### 2 4344-4 ####[facility] [id number] [place] [address] [place] CO2 (BldV) [Partial pressure] 46 mm[Hg] Normal 42-55 [facility] Comment on above: Order Comment: Speci men Type: VENOUS BLOOD SPECIMENOrdering Facility: [facility] Address: [address] [place], [place] [address] Performed By: #### 2 4344-4 ####[facility] [id number] [place] [address] [place] HCO3 (Bld) [Moles/Vol] 27 mmol/L Normal 24-28 [facility] Comment on above: Order Comment: Speci men Type: VENOUS BLOOD SPECIMENOrdering Facility: [facility] Address: [address] [place] [address] Performed By: #### 2 4344-4 ####[facility] [id number] [place] [address] [place] Hematocrit (Bld) [Volume fraction] 31.7 % Low 39.0-51.0 [facility] Comment on above: Order Comment: Speci men Type: VENOUS BLOOD SPECIMENOrdering Facility: [facility] Address: [address] [place] [address] Performed By: #### 2 4344-4 ####[facility] [id number] [place] [address] [place] Lactate [Moles/Vol] 1.9 mmol/L Normal 0.5-2.2 [facility] Comment on above: Order Comment: Speci men Type: VENOUS BLOOD SPECIMENOrdering Facility: [facility] Address: [address] [place] [address] Performed By: #### 2 4344-4 ####[facility] [id number] [place] [address] [place] Methemoglobin (Bld) [Mass fraction] 0.9 % Normal 0.0-1.5 [facility] Comment on above: Order Comment: Speci men Type: VENOUS BLOOD SPECIMENOrdering Facility: [facility] Address: [address] [place] [address] Performed By: #### 2 4344-4 ####[facility] [id number] [place] [address] [place] Oxygen (BldV) [Partial pressure] 47 mm[Hg] High 35-45 [facility] Comment on above: Order Comment: Speci men Type: VENOUS BLOOD SPECIMENOrdering Facility: [facility] Address: [address] [place] [address] Performed By: #### 2 4344-4 ####[facility] [id number] [address] [address] [place] Oxygen saturation in Venous blood 81 % Normal 60-85 [facility] Comment on above: Order Comment: Speci men Type: VENOUS BLOOD SPECIMENOrdering Facility: [facility] Address: [address] [place] [place] [address] Performed By: #### 2 4344-4 ####[facility] [id number] [place] [address] [place] Oxyhemoglobin (BldV) [Mass fraction] 79 % Normal 60-85 [facility] Comment on above: Order Comment: Speci men Type: VENOUS BLOOD SPECIMENOrdering Facility: [facility] Address: [address] [place] [address] Performed By: #### 2 4344-4 ####[facility] [id number] [place] [address] [place] pH (BldV) 7.39 [pH] Normal 7.32-7.42 [facility] Comment on above: Order Comment: Speci men Type: VENOUS BLOOD SPECIMENOrdering Facility: [facility] Address: [address] [place] [address] Performed By: #### 2 4344-4 ####[facility] [id number] [place] [address] [place] Potassium [Moles/Vol] 4.1 mmol/L Normal 3.5-5.0 [facility] Comment on above: Order Comment: Speci men Type: VENOUS BLOOD SPECIMENOrdering Facility: [facility] Address: [address] [place] [address] Performed By: #### 2 4344-4 ####[facility] [id number] [place] [id number] [place] XR CHEST 1V FRONTAL PORTon 1 XR CHEST 1V FRONTAL PORT Normal [facility] ARTERIAL BLOOD GASESon 01-23 Base excess Calc (Bld) [Moles/Vol] 2 mmol/L Normal 0-2 [facility] Comment on above: Order Comment: Speci men Type: ARTERIAL BLOOD SPECIMENOrdering Facility: [facility] Address: [address] [place] [address] Performed By: #### A LLBG ####[facility] [id number] [place] [address] [place] Calcium.ionized (Bld) [Mass/Vol] 1.20 mmol/L Normal 1.08-1.30 [facility] Comment on above: Order Comment: Speci men Type: ARTERIAL BLOOD SPECIMENOrdering Facility: [facility] Address: [address] [place] [address] Performed By: #### A LLBG ####[facility] [id number] [place] [address] [place] Calcium.ionized adjusted to pH 7.4 (BldA) [Moles/Vol] 1.20 mmol/L Normal 1.08-1.30 [facility] Comment on above: Order Comment: Speci men Type: ARTERIAL BLOOD SPECIMENOrdering Facility: [facility] Address: [address] [place] [address] Performed By: #### A LLBG ####[facility] [id number] [place] [address] [place] Carboxyhemoglobin (BldA) [Mass fraction] 0.9 % Normal 0.0-2.0 [facility] Comment on above: Order Comment: Speci men Type: ARTERIAL BLOOD SPECIMENOrdering Facility: [facility] Address: [address] [place] [address] Result Comment: Carb oxyhemoglobin Reference Range for Smokers: 2.0-8.0% Performed By: #### A LLBG ####[facility] [id number] [place] [address] [place] CO2 (Bld) [Partial pressure] 43 mm Hg Normal 36-46 [facility] Comment on above: Order Comment: Speci men Type: ARTERIAL BLOOD SPECIMENOrdering Facility: [facility] Address: [address] [place] [address] Performed By: #### A LLBG ####[facility] [id number] [place] [address] [place] Glucose [Mass/Vol] 134 mg/dL High 74-99 [facility] Comment on above: Order Comment: Speci men Type: ARTERIAL BLOOD SPECIMENOrdering Facility: [facility] Address: [address] [place] [address] Performed By: #### A LLBG ####[facility] [id number] [address] [place] Order Comment: Speci men Type: BLOOD SPECIMENOrdering Facility: [facility] Address: [address] [place] [address] Result Comment: The [place] [employer] (ADA) provides guidance for cutoff values for fasting glucose and random glucose. The ADA defines fasting as no caloric intake for at least 8 hours. Fasting plasma glucose results between 100 to 125 mg/dL indicate increased risk for diabetes (prediabetes).Fasting plasma glucose results greater than or equal to 126 mg/dL meet the criteria for diagnosis of diabetes. In the absence of unequivocal hyperglycemia, results should be confirmed by repeat testing. In a patient with classic symptoms of hyperglycemia or hyperglycemic crisis, random plasma glucose results greater than or equal to 200 mg/dL meet the criteria for diagnosis of diabetes.Reference: Standards of Medical Care in Diabetes 2016, [place] [employer]. Diabetes Care. 2016.39(Suppl 1). Performed By: #### 2 4323-8, HSTNT ####[facility] [id number] [place] [address] [place] HCO3 (Bld) [Moles/Vol] 26 mmol/L Normal 22-26 [facility] Comment on above: Order Comment: Speci men Type: ARTERIAL BLOOD SPECIMENOrdering Facility: [facility] Address: [address] [place] [address] Performed By: #### A LLBG ####[facility] [id number] [place] [address] [place] Lactate [Moles/Vol] 1.6 mmol/L Normal 0.5-2.2 [facility] Comment on above: Order Comment: Speci men Type: ARTERIAL BLOOD SPECIMENOrdering Facility: [facility] Address: [address] [place] [address] Performed By: #### A LLBG ####[facility] [id number] [place] [address] [place] Methemoglobin (Bld) [Mass fraction] 0.5 % Normal 0.0-1.5 [facility] Comment on above: Order Comment: Speci men Type: ARTERIAL BLOOD SPECIMENOrdering Facility: [facility] Address: [address] [place] [address] Performed By: #### A LLBG ####[facility] [id number] [place] [address] [place] Oxygen (Bld) [Partial pressure] 141 mm Hg High 85-95 [facility] Comment on above: Order Comment: Speci men Type: ARTERIAL BLOOD SPECIMENOrdering Facility: [facility] Address: [address] [place] [address] Performed By: #### A LLBG ####[facility] [id number] [place] [address] [place] Oxyhemoglobin (BldA) [Mass fraction] 98 % Normal 95-98 [facility] Comment on above: Order Comment: Speci men Type: ARTERIAL BLOOD SPECIMENOrdering Facility: [facility] Address: [address] [place] [address] Performed By: #### A LLBG ####[facility] [id number] [place] [address] [place] PEEP/CPAP 8 cmH2O Normal [facility] Comment on above: Order Comment: Speci men Type: ARTERIAL BLOOD SPECIMENOrdering Facility: [facility] Address: [address] [place] [address] Performed By: #### A LLBG ####[facility] [id number] [place] [address] [place] pH (Bld) 7.40 [pH] Normal 7.35-7.45 [facility] Comment on above: Order Comment: Speci men Type: ARTERIAL BLOOD SPECIMENOrdering Facility: [facility] Address: [address] [place] [address] Performed By: #### A LLBG ####[facility] [id number] [place] [address] [place] PO2 / FIO2 RATIO 470 mmHg Normal >300 [facility] Comment on above: Order Comment: Speci men Type: ARTERIAL BLOOD SPECIMENOrdering Facility: [facility] Address: [address] [place] [address] Performed By: #### A LLBG ####[facility] [id number] [place] [address] [place] Potassium [Moles/Vol] 4.3 mmol/L Normal 3.5-5.0 [facility] Comment on above: Order Comment: Speci men Type: ARTERIAL BLOOD SPECIMENOrdering Facility: [facility] Address: [address] [place] [address] Performed By: #### A LLBG ####[facility] [id number] [place] [address] [place] Sodium [Moles/Vol] 137 mmol/L Normal 136-144 [facility] Comment on above: Order Comment: Speci men Type: ARTERIAL BLOOD SPECIMENOrdering Facility: [facility] Address: [address] [place] [address] Performed By: #### A LLBG ####[facility] [id number] [place] [address] [place] Base excess Calc (Bld) [Moles/Vol] 3 mmol/L High 0-2 [facility] Comment on above: Order Comment: Speci men Type: ARTERIAL BLOOD SPECIMENOrdering Facility: [facility] Address: [address] [place] [address] Performed By: #### A LLBG ####[facility] [id number] [place] [address] [place] Body temperature 98.24 [degF] Normal [facility] Comment on above: Order Comment: Speci men Type: ARTERIAL BLOOD SPECIMENOrdering Facility: [facility] Address: [address] [place] [address] Performed By: #### A LLBG ####[facility] [id number] [address] [place] Order Comment: Speci men Type: VENOUS BLOOD SPECIMENOrdering Facility: [facility] Address: [address] [place] [address] Performed By: #### 2 4344-4 ####[facility] [id number] [place] [address] [place] Calcium.ionized (Bld) [Mass/Vol] 1.18 mmol/L Normal 1.08-1.30 [facility] Comment on above: Order Comment: Speci men Type: ARTERIAL BLOOD SPECIMENOrdering Facility: [facility] Address: [address] [place] [address] Performed By: #### A LLBG ####[facility] [id number] [place] [address] [place] Calcium.ionized adjusted to pH 7.4 (BldA) [Moles/Vol] 1.21 mmol/L Normal 1.08-1.30 [facility] Comment on above: Order Comment: Speci men Type: ARTERIAL BLOOD SPECIMENOrdering Facility: [facility] Address: [address] [place] [address] Performed By: #### A LLBG ####[facility] [id number] [place] [address] [place] Carboxyhemoglobin (BldA) [Mass fraction] 1.6 % Normal 0.0-2.0 [facility] Comment on above: Order Comment: Speci men Type: ARTERIAL BLOOD SPECIMENOrdering Facility: [facility] Address: [address] [place] [address] Result Comment: Carb oxyhemoglobin Reference Range for Smokers: 2.0-8.0% Performed By: #### A LLBG ####[facility] [id number] [place] [address] [place] CO2 (Bld) [Partial pressure] 39 mm Hg Normal 36-46 [facility] Comment on above: Order Comment: Speci men Type: ARTERIAL BLOOD SPECIMENOrdering Facility: [facility] Address: [address] [place] [address] Performed By: #### A LLBG ####[facility] [id number] [place] [address] [place] CO2 adjusted to patient's actual temperature (Bld) [Partial pressure] 39 mmHg Normal 36-46 [facility] Comment on above: Order Comment: Speci men Type: ARTERIAL BLOOD SPECIMENOrdering Facility: [facility] Address: [address] [place] [address] Performed By: #### A LLBG ####[facility] [id number] [place] [address] [place] FIO2 30 % Normal [facility] Comment on above: Order Comment: Speci men Type: ARTERIAL BLOOD SPECIMENOrdering Facility: [facility] Address: [address] [place] [address] Performed By: #### A LLBG ####[facility] [id number] [place] [address] [place] Order Comment: Speci men Type: VENOUS BLOOD SPECIMENOrdering Facility: [facility] Address: [address] [place] [address] Performed By: #### 2 4344-4 ####[facility] [id number] [place] [address] [place] Glucose [Mass/Vol] 137 mg/dL High 60-105 [facility] Comment on above: Order Comment: Speci men Type: ARTERIAL BLOOD SPECIMENOrdering Facility: [facility] Address: [address] [place] [address] Performed By: #### A LLBG ####[facility] [id number] [place] [address] [place] Order Comment: Speci men Type: VENOUS BLOOD SPECIMENOrdering Facility: [facility] Address: [address] [place] [address] Performed By: #### 2 4344-4 ####[facility] [id number] [place] [address] [place] HCO3 (Bld) [Moles/Vol] 27 mmol/L Normal 24-28 [facility] Comment on above: Order Comment: Speci men Type: ARTERIAL BLOOD SPECIMENOrdering Facility: [facility] Address: [address] [place] [address] Performed By: #### A LLBG ####[facility] [id number] [place] [address] [place] Order Comment: Speci men Type: VENOUS BLOOD SPECIMENOrdering Facility: [facility] Address: [address] [place] [address] Performed By: #### 2 4344-4 ####[facility] [id number] [place] [address] [place] Hematocrit (Bld) [Volume fraction] 32.6 % Low 39.0-51.0 [facility] Comment on above: Order Comment: Speci men Type: ARTERIAL BLOOD SPECIMENOrdering Facility: [facility] Address: [address] [place] [address] Performed By: #### A LLBG ####[facility] [id number] [place] [address] [place] Order Comment: Speci men Type: VENOUS BLOOD SPECIMENOrdering Facility: [facility] Address: [address] [place] [address] Performed By: #### 2 4344-4 ####[facility] [id number] [place] [address] [place] Hemoglobin (Bld) [Mass/Vol] 10.5 g/dL Low 13.0-17.0 [facility] Comment on above: Order Comment: Speci men Type: ARTERIAL BLOOD SPECIMENOrdering Facility: [facility] Address: [address] [place] [address] Performed By: #### A LLBG ####[facility] [id number] [place] [address] [place] Lactate [Moles/Vol] 2.3 mmol/L High 0.5-2.2 [facility] Comment on above: Order Comment: Speci men Type: ARTERIAL BLOOD SPECIMENOrdering Facility: [facility] Address: [address] [place] [address] Performed By: #### A LLBG ####[facility] [id number] [place] [address] [place] Methemoglobin (Bld) [Mass fraction] 1.0 % Normal 0.0-1.5 [facility] Comment on above: Order Comment: Speci men Type: ARTERIAL BLOOD SPECIMENOrdering Facility: [facility] Address: [address] [place] [address] Performed By: #### A LLBG ####[facility] [id number] [address] [address] [place] O2 THERAPY VENT=Ventilator Normal [facility] Comment on above: Order Comment: Speci men Type: ARTERIAL BLOOD SPECIMENOrdering Facility: [facility] Address: [address] [place] [id number] Performed By: #### A LLBG ####[facility] [id number] [place] [address] [place] Order Comment: Speci men Type: VENOUS BLOOD SPECIMENOrdering Facility: [facility] Address: [address] [place] [id number] Performed By: #### 2 4344-4 ####[facility] [id number] [place] [id number] [place] Oxygen (Bld) [Partial pressure] 142 mm Hg High 85-95 [facility] Comment on above: Order Comment: Speci men Type: ARTERIAL BLOOD SPECIMENOrdering Facility: [facility] Address: [address] [place] [id number] Performed By: #### A LLBG ####[facility] [id number] [place] [address] [place] Oxygen adjusted to patient's actual temperature (Bld) [Partial pressure] 141 mmHg High 85-95 [facility] Comment on above: Order Comment: Speci men Type: ARTERIAL BLOOD SPECIMENOrdering Facility: [facility] Address: [address] [place] [id number] Performed By: #### A LLBG ####[facility] [id number] [place] [id number] [place] Oxyhemoglobin (BldA) [Mass fraction] 97 % Normal 95-98 [facility] Comment on above: Order Comment: Speci men Type: ARTERIAL BLOOD SPECIMENOrdering Facility: [facility] Address: [address] [place] [id number] Performed By: #### A LLBG ####[facility] [id number] [place] [address] [place] PEEP/CPAP 10 cmH2O Normal [facility] Comment on above: Order Comment: Speci men Type: ARTERIAL BLOOD SPECIMENOrdering Facility: [facility] Address: [address] [place] [address] Performed By: #### A LLBG ####[facility] [id number] [place] [address] [place] pH (Bld) 7.46 [pH] High 7.35-7.45 [facility] Comment on above: Order Comment: Speci men Type: ARTERIAL BLOOD SPECIMENOrdering Facility: [facility] Address: [address] [place] [address] Performed By: #### A LLBG ####[facility] [id number] [place] [address] [place] pH adjusted to patient's actual temperature (Bld) 7.46 High 7.35-7.45 [facility] Comment on above: Order Comment: Speci men Type: ARTERIAL BLOOD SPECIMENOrdering Facility: [facility] Address: [address] [place] [address] Performed By: #### A LLBG ####[facility] [id number] [place] [address] [place] PO2 / FIO2 RATIO 473 mmHg Normal >300 [facility] Comment on above: Order Comment: Speci men Type: ARTERIAL BLOOD SPECIMENOrdering Facility: [facility] Address: [address] [place] [address] Performed By: #### A LLBG ####[facility] [id number] [place] [address] [place] Potassium [Moles/Vol] 4.1 mmol/L Normal 3.5-5.0 [facility] Comment on above: Order Comment: Speci men Type: ARTERIAL BLOOD SPECIMENOrdering Facility: [facility] Address: [address] [place] [address] Performed By: #### A LLBG ####[facility] [id number] [place] [address] [place] Sodium [Moles/Vol] 137 mmol/L Normal 136-144 [facility] Comment on above: Order Comment: Speci men Type: ARTERIAL BLOOD SPECIMENOrdering Facility: [facility] Address: [address] [place] [address] Performed By: #### A LLBG ####[facility] [id number] [place] [address] [place] Base excess Calc (Bld) [Moles/Vol] 3 mmol/L High 0-2 [facility] Comment on above: Order Comment: Speci men Type: ARTERIAL BLOOD SPECIMENOrdering Facility: [facility] Address: [address] [place] [address] Performed By: #### A LLBG ####[facility] [id number] [place] [address] [place] Body temperature 98.06 [degF] Normal [facility] Comment on above: Order Comment: Speci men Type: ARTERIAL BLOOD SPECIMENOrdering Facility: [facility] Address: [address] [place] [address] Performed By: #### A LLBG ####[facility] [id number] [place] [address] [place] Order Comment: Speci men Type: VENOUS BLOOD SPECIMENOrdering Facility: [facility] Address: [address] [place] [address] Performed By: #### 2 4344-4 ####[facility] [id number] [place] [address] [place] Calcium.ionized (Bld) [Mass/Vol] 1.19 mmol/L Normal 1.08-1.30 [facility] Comment on above: Order Comment: Speci men Type: ARTERIAL BLOOD SPECIMENOrdering Facility: [facility] Address: [address] [place] [address] Performed By: #### A LLBG ####[facility] [id number] [place] [address] [place] Calcium.ionized adjusted to pH 7.4 (BldA) [Moles/Vol] 1.23 mmol/L Normal 1.08-1.30 [facility] Comment on above: Order Comment: Speci men Type: ARTERIAL BLOOD SPECIMENOrdering Facility: [facility] Address: [address] [place] [address] Performed By: #### A LLBG ####[facility] [id number] [place] [address] [place] Carboxyhemoglobin (BldA) [Mass fraction] 1.4 % Normal 0.0-2.0 [facility] Comment on above: Order Comment: Speci men Type: ARTERIAL BLOOD SPECIMENOrdering Facility: [facility] Address: [address] [place] [address] Result Comment: Carb oxyhemoglobin Reference Range for Smokers: 2.0-8.0% Performed By: #### A LLBG ####[facility] [id number] [place] [address] [place] CO2 (Bld) [Partial pressure] 36 mm Hg Normal 36-46 [facility] Comment on above: Order Comment: Speci men Type: ARTERIAL BLOOD SPECIMENOrdering Facility: [facility] Address: [address] [place], [place] [address] Performed By: #### A LLBG ####[facility] [id number] [place] [address] [place] CO2 adjusted to patient's actual temperature (Bld) [Partial pressure] 36 mmHg Normal 36-46 [facility] Comment on above: Order Comment: Speci men Type: ARTERIAL BLOOD SPECIMENOrdering Facility: [facility] Address: [address] [place] [address] Performed By: #### A LLBG ####[facility] [id number] [place] [address] [place] FIO2 30 % Normal [facility] Comment on above: Order Comment: Speci men Type: ARTERIAL BLOOD SPECIMENOrdering Facility: [facility] Address: [address] [place] [address] Performed By: #### A LLBG ####[facility] [id number] [place] [address] [place] Order Comment: Speci men Type: VENOUS BLOOD SPECIMENOrdering Facility: [facility] Address: [address] [place] [address] Performed By: #### 2 4344-4 ####[facility] [id number] [place] [address] [place] Glucose [Mass/Vol] 124 mg/dL High 60-105 [facility] Comment on above: Order Comment: Speci men Type: ARTERIAL BLOOD SPECIMENOrdering Facility: [facility] Address: [address] [place] [address] Performed By: #### A LLBG ####[facility] [id number] [place] [address] [place] HCO3 (Bld) [Moles/Vol] 26 mmol/L Normal 22-26 [facility] Comment on above: Order Comment: Speci men Type: ARTERIAL BLOOD SPECIMENOrdering Facility: [facility] Address: [address] [place] [address] Performed By: #### A LLBG ####[facility] [id number] [place] [address] [place] Hematocrit (Bld) [Volume fraction] 32.4 % Low 39.0-51.0 [facility] Comment on above: Order Comment: Speci men Type: ARTERIAL BLOOD SPECIMENOrdering Facility: [facility] Address: [address] [place] [address] Performed By: #### A LLBG ####[facility] [id number] [place] [address] [place] Hemoglobin (Bld) [Mass/Vol] 10.5 g/dL Low 13.0-17.0 [facility] Comment on above: Order Comment: Speci men Type: ARTERIAL BLOOD SPECIMENOrdering Facility: [facility] Address: [address] [place] [address] Performed By: #### A LLBG ####[facility] [id number] [place] [address] [place] Lactate [Moles/Vol] 2.4 mmol/L High 0.5-2.2 [facility] Comment on above: Order Comment: Speci men Type: ARTERIAL BLOOD SPECIMENOrdering Facility: [facility] Address: [address] [place] [address] Performed By: #### A LLBG ####[facility] [id number] [place] [address] [place] Order Comment: Speci men Type: VENOUS BLOOD SPECIMENOrdering Facility: [facility] Address: [address] [place] [address] Performed By: #### 2 4344-4 ####[facility] [id number] [place] [address] [place] Methemoglobin (Bld) [Mass fraction] 0.6 % Normal 0.0-1.5 [facility] Comment on above: Order Comment: Speci men Type: ARTERIAL BLOOD SPECIMENOrdering Facility: [facility] Address: [address] [place] [address] Performed By: #### A LLBG ####[facility] [id number] [place] [address] [place] O2 THERAPY VENT=Ventilator Normal [facility] Comment on above: Order Comment: Speci men Type: ARTERIAL BLOOD SPECIMENOrdering Facility: [facility] Address: [address] [place] [address] Performed By: #### A LLBG ####[facility] [id number] [address] [address] [place] Order Comment: Speci men Type: VENOUS BLOOD SPECIMENOrdering Facility: [facility] Address: [address] [place] [address] Performed By: #### 2 4344-4 ####[facility] [id number] [place] [address] [place] Oxygen (Bld) [Partial pressure] 117 mm Hg High 85-95 [facility] Comment on above: Order Comment: Speci men Type: ARTERIAL BLOOD SPECIMENOrdering Facility: [facility] Address: [address] [place] [address] Performed By: #### A LLBG ####[facility] [id number] [place] [address] [place] Oxygen adjusted to patient's actual temperature (Bld) [Partial pressure] 115 mmHg High 85-95 [facility] Comment on above: Order Comment: Speci men Type: ARTERIAL BLOOD SPECIMENOrdering Facility: [facility] Address: [address] [place], [place] [address] Performed By: #### A LLBG ####[facility] [id number] [address] [address] [place] Oxyhemoglobin (BldA) [Mass fraction] 97 % Normal 95-98 [facility] Comment on above: Order Comment: Speci men Type: ARTERIAL BLOOD SPECIMENOrdering Facility: [facility] Address: [address] [place] [id number] Performed By: #### A LLBG ####[facility] [id number] [place] [id number] [place] PEEP/CPAP 10 cmH2O Normal [facility] Comment on above: Order Comment: Speci men Type: ARTERIAL BLOOD SPECIMENOrdering Facility: [facility] Address: [address] [place] [address] Performed By: #### A LLBG ####[facility] [id number] [place] [address] [place] Order Comment: Speci men Type: VENOUS BLOOD SPECIMENOrdering Facility: [facility] Address: [address] [place] [address] Performed By: #### 2 4344-4 ####[facility] [id number] [place] [address] [place] pH (Bld) 7.47 [pH] High 7.35-7.45 [facility] Comment on above: Order Comment: Speci men Type: ARTERIAL BLOOD SPECIMENOrdering Facility: [facility] Address: [address] [place] [address] Performed By: #### A LLBG ####[facility] [id number] [address] [place] pH adjusted to patient's actual temperature (Bld) 7.47 High 7.35-7.45 [facility] Comment on above: Order Comment: Speci men Type: ARTERIAL BLOOD SPECIMENOrdering Facility: [facility] Address: [address] [place] [address] Performed By: #### A LLBG ####[facility] [id number] [place] [address] [place] PO2 / FIO2 RATIO 390 mmHg Normal >300 [facility] Comment on above: Order Comment: Speci men Type: ARTERIAL BLOOD SPECIMENOrdering Facility: [facility] Address: [address] [place] [address] Performed By: #### A LLBG ####[facility] [id number] [address] [place] Potassium [Moles/Vol] 4.1 mmol/L Normal 3.5-5.0 [facility] Comment on above: Order Comment: Speci men Type: ARTERIAL BLOOD SPECIMENOrdering Facility: [facility] Address: [address] [place] [address] Performed By: #### A LLBG ####[facility] [id number] [address] [place] Order Comment: Speci men Type: VENOUS BLOOD SPECIMENOrdering Facility: [facility] Address: [address] [place] [address] Performed By: #### 2 4344-4 ####[facility] [id number] [place] [address] [place] Base excess Calc (Bld) [Moles/Vol] 1 mmol/L Normal 0-2 [facility] Comment on above: Order Comment: Speci men Type: ARTERIAL BLOOD SPECIMENOrdering Facility: [facility] Address: [address] [place] [address] Performed By: #### A LLBG ####[facility] [id number] [address] [place] Body temperature 98.6 [degF] Normal [facility] Comment on above: Order Comment: Speci men Type: ARTERIAL BLOOD SPECIMENOrdering Facility: [facility] Address: [address] [place] [address] Performed By: #### A LLBG ####[facility] [id number] [address] [place] Order Comment: Speci men Type: VENOUS BLOOD SPECIMENOrdering Facility: [facility] Address: [address] [place] [address] Performed By: #### 2 4344-4 ####[facility] [id number] [place] [id number] [place] Calcium.ionized (Bld) [Mass/Vol] 1.18 mmol/L Normal 1.08-1.30 [facility] Comment on above: Order Comment: Speci men Type: ARTERIAL BLOOD SPECIMENOrdering Facility: [facility] Address: [address] [place] [address] Performed By: #### A LLBG ####[facility] [id number] [place] [address] [place] Calcium.ionized adjusted to pH 7.4 (BldA) [Moles/Vol] 1.22 mmol/L Normal 1.08-1.30 [facility] Comment on above: Order Comment: Speci men Type: ARTERIAL BLOOD SPECIMENOrdering Facility: [facility] Address: [address] [place] [address] Performed By: #### A LLBG ####[facility] [id number] [place] [address] [place] Carboxyhemoglobin (BldA) [Mass fraction] 0.6 % Normal 0.0-2.0 [facility] Comment on above: Order Comment: Speci men Type: ARTERIAL BLOOD SPECIMENOrdering Facility: [facility] Address: [address] [place] [address] Result Comment: Carb oxyhemoglobin Reference Range for Smokers: 2.0-8.0% Performed By: #### A LLBG ####[facility] [id number] [place] [address] [place] CO2 (Bld) [Partial pressure] 36 mm Hg Normal 36-46 [facility] Comment on above: Order Comment: Speci men Type: ARTERIAL BLOOD SPECIMENOrdering Facility: [facility] Address: [address] [place] [address] Performed By: #### A LLBG ####[facility] [id number] [place] [address] [place] FIO2 30 % Normal [facility] Comment on above: Order Comment: Speci men Type: ARTERIAL BLOOD SPECIMENOrdering Facility: [facility] Address: [address] [place] [address] Performed By: #### A LLBG ####[facility] [id number] [place] [address] [place] Order Comment: Speci men Type: VENOUS BLOOD SPECIMENOrdering Facility: [facility] Address: [address] [place] [address] Performed By: #### 2 4344-4 ####[facility] [id number] [place] [address] [place] Glucose [Mass/Vol] 125 mg/dL High 60-105 [facility] Comment on above: Order Comment: Speci men Type: ARTERIAL BLOOD SPECIMENOrdering Facility: [facility] Address: [address] [place] [address] Performed By: #### A LLBG ####[facility] [id number] [place] [address] [place] HCO3 (Bld) [Moles/Vol] 24 mmol/L Normal 22-26 [facility] Comment on above: Order Comment: Speci men Type: ARTERIAL BLOOD SPECIMENOrdering Facility: [facility] Address: [address] [place] [address] Performed By: #### A LLBG ####[facility] [id number] [place] [address] [place] Hematocrit (Bld) [Volume fraction] 33.7 % Low 39.0-51.0 [facility] Comment on above: Order Comment: Speci men Type: ARTERIAL BLOOD SPECIMENOrdering Facility: [facility] Address: [address] [place] [address] Performed By: #### A LLBG ####[facility] [id number] [place] [address] [place] Hemoglobin (Bld) [Mass/Vol] 10.9 g/dL Low 13.0-17.0 [facility] Comment on above: Order Comment: Speci men Type: ARTERIAL BLOOD SPECIMENOrdering Facility: [facility] Address: [address] [place] [address] Performed By: #### A LLBG ####[facility] [id number] [place] [address] [place] Lactate [Moles/Vol] 2.9 mmol/L High 0.5-2.2 [facility] Comment on above: Order Comment: Speci men Type: ARTERIAL BLOOD SPECIMENOrdering Facility: [facility] Address: [address] [place] [address] Performed By: #### A LLBG ####[facility] [id number] [place] [address] [place] Methemoglobin (Bld) [Mass fraction] 1.0 % Normal 0.0-1.5 [facility] Comment on above: Order Comment: Speci men Type: ARTERIAL BLOOD SPECIMENOrdering Facility: [facility] Address: [address] [place] [address] Performed By: #### A LLBG ####[facility] [id number] [place] [address] [place] O2 THERAPY VENT=Ventilator Normal [facility] Comment on above: Order Comment: Speci men Type: ARTERIAL BLOOD SPECIMENOrdering Facility: [facility] Address: [address] [place] [address] Performed By: #### A LLBG ####[facility] [id number] [place] [address] [place] Order Comment: Speci men Type: VENOUS BLOOD SPECIMENOrdering Facility: [facility] Address: [address] [place] [address] Performed By: #### 2 4344-4 ####[facility] [id number] [place] [address] [place] Oxygen (Bld) [Partial pressure] 149 mm Hg High 85-95 [facility] Comment on above: Order Comment: Speci men Type: ARTERIAL BLOOD SPECIMENOrdering Facility: [facility] Address: [address] [place] [address] Performed By: #### A LLBG ####[facility] [id number] [place] [address] [place] Oxyhemoglobin (BldA) [Mass fraction] 97 % Normal 95-98 [facility] Comment on above: Order Comment: Speci men Type: ARTERIAL BLOOD SPECIMENOrdering Facility: [facility] Address: [address] [place] [address] Performed By: #### A LLBG ####[facility] [id number] [place] [address] [place] pH (Bld) 7.45 [pH] Normal 7.35-7.45 [facility] Comment on above: Order Comment: Speci men Type: ARTERIAL BLOOD SPECIMENOrdering Facility: [facility] Address: [address] [place] [address] Performed By: #### A LLBG ####[facility] [id number] [place] [address] [place] PO2 / FIO2 RATIO 497 mmHg Normal >300 [facility] Comment on above: Order Comment: Speci men Type: ARTERIAL BLOOD SPECIMENOrdering Facility: [facility] Address: [address] [place] [address] Performed By: #### A LLBG ####[facility] [id number] [place] [address] [place] Potassium [Moles/Vol] 4.0 mmol/L Normal 3.5-5.0 [facility] Comment on above: Order Comment: Speci men Type: ARTERIAL BLOOD SPECIMENOrdering Facility: [facility] Address: [address] [place] [address] Performed By: #### A LLBG ####[facility] [id number] [place] [address] [place] Base excess Calc (Bld) [Moles/Vol] 1 mmol/L Normal 0-2 [facility] Comment on above: Order Comment: Speci men Type: ARTERIAL BLOOD SPECIMENOrdering Facility: [facility] Address: [address] [place] [address] Performed By: #### A LLBG ####[facility] [id number] [place] [address] [place] Body temperature 98.6 [degF] Normal [facility] Comment on above: Order Comment: Speci men Type: ARTERIAL BLOOD SPECIMENOrdering Facility: [facility] Address: [address] [place] [address] Performed By: #### A LLBG ####[facility] [id number] [place] [address] [place] Order Comment: Speci men Type: VENOUS BLOOD SPECIMENOrdering Facility: [facility] Address: [address] [place] [address] Performed By: #### 2 4344-4 ####[facility] [id number] [place] [address] [place] Calcium.ionized (Bld) [Mass/Vol] 1.17 mmol/L Normal 1.08-1.30 [facility] Comment on above: Order Comment: Speci men Type: ARTERIAL BLOOD SPECIMENOrdering Facility: [facility] Address: [address] [place] [address] Performed By: #### A LLBG ####[facility] [id number] [place] [address] [place] Calcium.ionized adjusted to pH 7.4 (BldA) [Moles/Vol] 1.20 mmol/L Normal 1.08-1.30 [facility] Comment on above: Order Comment: Speci men Type: ARTERIAL BLOOD SPECIMENOrdering Facility: [facility] Address: [facility] [place] [address] Performed By: #### A LLBG ####[facility] [id number] [place] [address] [place] Carboxyhemoglobin (BldA) [Mass fraction] 1.2 % Normal 0.0-2.0 [facility] Comment on above: Order Comment: Speci men Type: ARTERIAL BLOOD SPECIMENOrdering Facility: [facility] Address: [address] [place] [address] Result Comment: Carb oxyhemoglobin Reference Range for Smokers: 2.0-8.0% Performed By: #### A LLBG ####[facility] [id number] [place] [address] [place] CO2 (Bld) [Partial pressure] 36 mm Hg Normal 36-46 [facility] Comment on above: Order Comment: Speci men Type: ARTERIAL BLOOD SPECIMENOrdering Facility: [facility] Address: [address] [place] [address] Performed By: #### A LLBG ####[facility] [id number] [place] [address] [place] FIO2 30 % Normal [facility] Comment on above: Order Comment: Speci men Type: ARTERIAL BLOOD SPECIMENOrdering Facility: [facility] Address: [address] [place] [address] Performed By: #### A LLBG ####[facility] [id number] [place] [address] [place] Order Comment: Speci men Type: VENOUS BLOOD SPECIMENOrdering Facility: [facility] Address: [address] [place] [address] Performed By: #### 2 4344-4 ####[facility] [id number] [place] [address] [place] Glucose [Mass/Vol] 152 mg/dL High 60-105 [facility] Comment on above: Order Comment: Speci men Type: ARTERIAL BLOOD SPECIMENOrdering Facility: [facility] Address: [address] [place] [address] Performed By: #### A LLBG ####[facility] [id number] [place] [address] [place] HCO3 (Bld) [Moles/Vol] 24 mmol/L Normal 22-26 [facility] Comment on above: Order Comment: Speci men Type: ARTERIAL BLOOD SPECIMENOrdering Facility: [facility] Address: [address] [place] [address] Performed By: #### A LLBG ####[facility] [id number] [place] [address] [place] Hematocrit (Bld) [Volume fraction] 33.9 % Low 39.0-51.0 [facility] Comment on above: Order Comment: Speci men Type: ARTERIAL BLOOD SPECIMENOrdering Facility: [facility] Address: [address] [place] [address] Performed By: #### A LLBG ####[facility] [id number] [place] [address] [place] Hemoglobin (Bld) [Mass/Vol] 11.0 g/dL Low 13.0-17.0 [facility] Comment on above: Order Comment: Speci men Type: ARTERIAL BLOOD SPECIMENOrdering Facility: [facility] Address: [address] [place] [address] Performed By: #### A LLBG ####[facility] [id number] [place] [address] [place] Lactate [Moles/Vol] 4.6 mmol/L High 0.5-2.2 [facility] Comment on above: Order Comment: Speci men Type: ARTERIAL BLOOD SPECIMENOrdering Facility: [facility] Address: [address] [place] [id number] Performed By: #### A LLBG ####[facility] [id number] [place] [address] [place] Methemoglobin (Bld) [Mass fraction] 1.2 % Normal 0.0-1.5 [facility] Comment on above: Order Comment: Speci men Type: ARTERIAL BLOOD SPECIMENOrdering Facility: [facility] Address: [address] [place] [id number] Performed By: #### A LLBG ####[facility] [id number] [place] [address] [place] O2 THERAPY VENT=Ventilator Normal [facility] Comment on above: Order Comment: Speci men Type: ARTERIAL BLOOD SPECIMENOrdering Facility: [facility] Address: [address] [place] [address] Performed By: #### A LLBG ####[facility] [id number] [place] [address] [place] Order Comment: Speci men Type: VENOUS BLOOD SPECIMENOrdering Facility: [facility] Address: [address] [place] [id number] Performed By: #### 2 4344-4 ####[facility] [id number] [place] [address] [place] Oxygen (Bld) [Partial pressure] 125 mm Hg High 85-95 [facility] Comment on above: Order Comment: Speci men Type: ARTERIAL BLOOD SPECIMENOrdering Facility: [facility] Address: [address] [place] [id number] Performed By: #### A LLBG ####[facility] [id number] [place] [id number] [place] Oxyhemoglobin (BldA) [Mass fraction] 97 % Normal 95-98 [facility] Comment on above: Order Comment: Speci men Type: ARTERIAL BLOOD SPECIMENOrdering Facility: [facility] Address: [address] [place] [address] Performed By: #### A LLBG ####[facility] [id number] [place] [address] [place] pH (Bld) 7.44 [pH] Normal 7.35-7.45 [facility] Comment on above: Order Comment: Speci men Type: ARTERIAL BLOOD SPECIMENOrdering Facility: [facility] Address: [address] [place] [address] Performed By: #### A LLBG ####[facility] [id number] [place] [address] [place] PO2 / FIO2 RATIO 417 mmHg Normal >300 [facility] Comment on above: Order Comment: Speci men Type: ARTERIAL BLOOD SPECIMENOrdering Facility: [facility] Address: [address] [place] [address] Performed By: #### A LLBG ####[facility] [id number] [place] [address] [place] Potassium [Moles/Vol] 3.9 mmol/L Normal 3.5-5.0 [facility] Comment on above: Order Comment: Speci men Type: ARTERIAL BLOOD SPECIMENOrdering Facility: [facility] Address: [address] [place] [address] Performed By: #### A LLBG ####[facility] [id number] [place] [address] [place] Order Comment: Speci men Type: VENOUS BLOOD SPECIMENOrdering Facility: [facility] Address: [address] [place] [address] Performed By: #### 2 4344-4 ####[facility] [id number] [place] [address] [place] Sodium [Moles/Vol] 137 mmol/L Normal 136-144 [facility] Comment on above: Order Comment: Speci men Type: ARTERIAL BLOOD SPECIMENOrdering Facility: [facility] Address: [address] [place] [address] Performed By: #### A LLBG ####[facility] [id number] [place] [address] [place] Base excess Calc (Bld) [Moles/Vol] 0 mmol/L Normal 0-2 [facility] Comment on above: Order Comment: Speci men Type: ARTERIAL BLOOD SPECIMENOrdering Facility: [facility] Address: [address] [place] [address] Performed By: #### A LLBG ####[facility] [id number] [place] [address] [place] Body temperature 98.6 [degF] Normal [facility] Comment on above: Order Comment: Speci men Type: ARTERIAL BLOOD SPECIMENOrdering Facility: [facility] Address: [address] [place] [address] Performed By: #### A LLBG ####[facility] [id number] [place] [address] [place] Order Comment: Speci men Type: VENOUS BLOOD SPECIMENOrdering Facility: [facility] Address: [address] [place] [address] Performed By: #### 2 4344-4 ####[facility] [id number] [place] [address] [place] Calcium.ionized (Bld) [Mass/Vol] 1.18 mmol/L Normal 1.08-1.30 [facility] Comment on above: Order Comment: Speci men Type: ARTERIAL BLOOD SPECIMENOrdering Facility: [facility] Address: [address] [place] [address] Performed By: #### A LLBG ####[facility] [id number] [place] [address] [place] Order Comment: Speci men Type: VENOUS BLOOD SPECIMENOrdering Facility: [facility] Address: [address] [place] [address] Performed By: #### 2 4344-4 ####[facility] [id number] [place] [address] [place] Calcium.ionized adjusted to pH 7.4 (BldA) [Moles/Vol] 1.20 mmol/L Normal 1.08-1.30 [facility] Comment on above: Order Comment: Speci men Type: ARTERIAL BLOOD SPECIMENOrdering Facility: [facility] Address: [address] [place] [address] Performed By: #### A LLBG ####[facility] [id number] [place] [address] [place] Carboxyhemoglobin (BldA) [Mass fraction] 0.6 % Normal 0.0-2.0 [facility] Comment on above: Order Comment: Speci men Type: ARTERIAL BLOOD SPECIMENOrdering Facility: [facility] Address: [address] [place] [address] Result Comment: Carb oxyhemoglobin Reference Range for Smokers: 2.0-8.0% Performed By: #### A LLBG ####[facility] [id number] [place] [address] [place] CO2 (Bld) [Partial pressure] 35 mm Hg Low 36-46 [facility] Comment on above: Order Comment: Speci men Type: ARTERIAL BLOOD SPECIMENOrdering Facility: [facility] Address: [address] [place] [address] Performed By: #### A LLBG ####[facility] [id number] [place] [address] [place] FIO2 40 % Normal [facility] Comment on above: Order Comment: Speci men Type: ARTERIAL BLOOD SPECIMENOrdering Facility: [facility] Address: [address] [place] [address] Performed By: #### A LLBG ####[facility] [id number] [address] [place] Order Comment: Speci men Type: VENOUS BLOOD SPECIMENOrdering Facility: [facility] Address: [address] [place] [address] Performed By: #### 2 4344-4 ####[facility] [id number] [place] [address] [place] Glucose [Mass/Vol] 148 mg/dL High 60-105 [facility] Comment on above: Order Comment: Speci men Type: ARTERIAL BLOOD SPECIMENOrdering Facility: [facility] Address: [address] [place] [address] Performed By: #### A LLBG ####[facility] [id number] [address] [place] Order Comment: Speci men Type: VENOUS BLOOD SPECIMENOrdering Facility: [facility] Address: [address] [place] [address] Performed By: #### 2 4344-4 ####[facility] [id number] [place] [address] [place] HCO3 (Bld) [Moles/Vol] 24 mmol/L Normal 22-26 [facility] Comment on above: Order Comment: Speci men Type: ARTERIAL BLOOD SPECIMENOrdering Facility: [facility] Address: [address] [place] [address] Performed By: #### A LLBG ####[facility] [id number] [place] [address] [place] Hematocrit (Bld) [Volume fraction] 34.6 % Low 39.0-51.0 [facility] Comment on above: Order Comment: Speci men Type: ARTERIAL BLOOD SPECIMENOrdering Facility: [facility] Address: [address] [place] [address] Performed By: #### A LLBG ####[facility] [id number] [place] [address] [place] Hemoglobin (Bld) [Mass/Vol] 11.2 g/dL Low 13.0-17.0 [facility] Comment on above: Order Comment: Speci men Type: ARTERIAL BLOOD SPECIMENOrdering Facility: [facility] Address: [address] [place] [address] Performed By: #### A LLBG ####[facility] [id number] [place] [address] [place] Lactate [Moles/Vol] 4.8 mmol/L High 0.5-2.2 [facility] Comment on above: Order Comment: Speci men Type: ARTERIAL BLOOD SPECIMENOrdering Facility: [facility] Address: [address] [place] [address] Performed By: #### A LLBG ####[facility] [id number] [place] [address] [place] Methemoglobin (Bld) [Mass fraction] 1.0 % Normal 0.0-1.5 [facility] Comment on above: Order Comment: Speci men Type: ARTERIAL BLOOD SPECIMENOrdering Facility: [facility] Address: [address] [place] [address] Performed By: #### A LLBG ####[facility] [id number] [place] [address] [place] O2 THERAPY VENT=Ventilator Normal [facility] Comment on above: Order Comment: Speci men Type: ARTERIAL BLOOD SPECIMENOrdering Facility: [facility] Address: [address] [place] [address] Performed By: #### A LLBG ####[facility] [id number] [place] [address] [place] Order Comment: Speci men Type: VENOUS BLOOD SPECIMENOrdering Facility: [facility] Address: [address] [place] [id number] Performed By: #### 2 4344-4 ####[facility] [id number] [address] [address] [place] Oxygen (Bld) [Partial pressure] 114 mm Hg High 85-95 [facility] Comment on above: Order Comment: Speci men Type: ARTERIAL BLOOD SPECIMENOrdering Facility: [facility] Address: [address] [place] [id number] Performed By: #### A LLBG ####[facility] [id number] [place] [address] [place] Oxyhemoglobin (BldA) [Mass fraction] 97 % Normal 95-98 [facility] Comment on above: Order Comment: Speci men Type: ARTERIAL BLOOD SPECIMENOrdering Facility: [facility] Address: [address] [place] [address] Performed By: #### A LLBG ####[facility] [id number] [place] [address] [place] pH (Bld) 7.44 [pH] Normal 7.35-7.45 [facility] Comment on above: Order Comment: Speci men Type: ARTERIAL BLOOD SPECIMENOrdering Facility: [facility] Address: [address] [place] [id number] Performed By: #### A LLBG ####[facility] [id number] [place] [id number] [place] PO2 / FIO2 RATIO 285 mmHg Low >300 [facility] Comment on above: Order Comment: Speci men Type: ARTERIAL BLOOD SPECIMENOrdering Facility: [facility] Address: [address] [place], [place] [address] Performed By: #### A LLBG ####[facility] [id number] [place] [id number] [place] Potassium [Moles/Vol] 3.8 mmol/L Normal 3.5-5.0 [facility] Comment on above: Order Comment: Speci men Type: ARTERIAL BLOOD SPECIMENOrdering Facility: [facility] Address: [address] [place] [address] Performed By: #### A LLBG ####[facility] [id number] [place] [address] [place] Base excess Calc (Bld) [Moles/Vol] 0 mmol/L Normal 0-2 [facility] Comment on above: Order Comment: Speci men Type: ARTERIAL BLOOD SPECIMENOrdering Facility: [facility] Address: [address] [place] [address] Performed By: #### A LLBG ####[facility] [id number] [place] [address] [place] Calcium.ionized (Bld) [Mass/Vol] 1.18 mmol/L Normal 1.08-1.30 [facility] Comment on above: Order Comment: Speci men Type: ARTERIAL BLOOD SPECIMENOrdering Facility: [facility] Address: [address] [place] [address] Performed By: #### A LLBG ####[facility] [id number] [place] [address] [place] Calcium.ionized adjusted to pH 7.4 (BldA) [Moles/Vol] 1.19 mmol/L Normal 1.08-1.30 [facility] Comment on above: Order Comment: Speci men Type: ARTERIAL BLOOD SPECIMENOrdering Facility: [facility] Address: [address] [place] [address] Performed By: #### A LLBG ####[facility] [id number] [place] [address] [place] Carboxyhemoglobin (BldA) [Mass fraction] 1.2 % Normal 0.0-2.0 [facility] Comment on above: Order Comment: Speci men Type: ARTERIAL BLOOD SPECIMENOrdering Facility: [facility] Address: [address] [place] [address] Result Comment: Carb oxyhemoglobin Reference Range for Smokers: 2.0-8.0% Performed By: #### A LLBG ####[facility] [id number] [place] [address] [place] CO2 (Bld) [Partial pressure] 38 mm Hg Normal 36-46 [facility] Comment on above: Order Comment: Speci men Type: ARTERIAL BLOOD SPECIMENOrdering Facility: [facility] Address: [address] [place] [address] Performed By: #### A LLBG ####[facility] [id number] [place] [address] [place] Hematocrit (Bld) [Volume fraction] 35.3 % Low 39.0-51.0 [facility] Comment on above: Order Comment: Speci men Type: ARTERIAL BLOOD SPECIMENOrdering Facility: [facility] Address: [address] [place] [address] Performed By: #### A LLBG ####[facility] [id number] [place] [address] [place] Lactate [Moles/Vol] 5.2 mmol/L High 0.5-2.2 [facility] Comment on above: Order Comment: Speci men Type: ARTERIAL BLOOD SPECIMENOrdering Facility: [facility] Address: [address] [place] [address] Performed By: #### A LLBG ####[facility] [id number] [place] [address] [place] Methemoglobin (Bld) [Mass fraction] 1.3 % Normal 0.0-1.5 [facility] Comment on above: Order Comment: Speci men Type: ARTERIAL BLOOD SPECIMENOrdering Facility: [facility] Address: [address] [place] [address] Performed By: #### A LLBG ####[facility] [id number] [place] [address] [place] Oxygen (Bld) [Partial pressure] 135 mm Hg High 85-95 [facility] Comment on above: Order Comment: Speci men Type: ARTERIAL BLOOD SPECIMENOrdering Facility: [facility] Address: [address] [place] [address] Performed By: #### A LLBG ####[facility] [id number] [place] [address] [place] Oxyhemoglobin (BldA) [Mass fraction] 97 % Normal 95-98 [facility] Comment on above: Order Comment: Speci men Type: ARTERIAL BLOOD SPECIMENOrdering Facility: [facility] Address: [address] [place] [address] Performed By: #### A LLBG ####[facility] [id number] [place] [address] [place] pH (Bld) 7.41 [pH] Normal 7.35-7.45 [facility] Comment on above: Order Comment: Speci men Type: ARTERIAL BLOOD SPECIMENOrdering Facility: [facility] Address: [address] [place] [address] Performed By: #### A LLBG ####[facility] [id number] [place] [address] [place] PO2 / FIO2 RATIO 225 mmHg Low >300 [facility] Comment on above: Order Comment: Speci men Type: ARTERIAL BLOOD SPECIMENOrdering Facility: [facility] Address: [address] [place] [address] Performed By: #### A LLBG ####[facility] [id number] [place] [address] [place] Base deficit (BldA) [Moles/Vol] -2 mmol/L Normal -2-0 [facility] Comment on above: Order Comment: Speci men Type: ARTERIAL BLOOD SPECIMENOrdering Facility: [facility] Address: [address] [place] [address] Performed By: #### A LLBG ####[facility] [id number] [place] [address] [place] Calcium.ionized (Bld) [Mass/Vol] 1.20 mmol/L Normal 1.08-1.30 [facility] Comment on above: Order Comment: Speci men Type: ARTERIAL BLOOD SPECIMENOrdering Facility: [facility] Address: [address] [place] [address] Performed By: #### A LLBG ####[facility] [id number] [place] [address] [place] Calcium.ionized adjusted to pH 7.4 (BldA) [Moles/Vol] 1.18 mmol/L Normal 1.08-1.30 [facility] Comment on above: Order Comment: Speci men Type: ARTERIAL BLOOD SPECIMENOrdering Facility: [facility] Address: [address] [place] [address] Performed By: #### A LLBG ####[facility] [id number] [place] [address] [place] Carboxyhemoglobin (BldA) [Mass fraction] 1.2 % Normal 0.0-2.0 [facility] Comment on above: Order Comment: Speci men Type: ARTERIAL BLOOD SPECIMENOrdering Facility: [facility] Address: [address] [place] [address] Result Comment: Carb oxyhemoglobin Reference Range for Smokers: 2.0-8.0% Performed By: #### A LLBG ####[facility] [id number] [place] [address] [place] CO2 (Bld) [Partial pressure] 41 mm Hg Normal 36-46 [facility] Comment on above: Order Comment: Speci men Type: ARTERIAL BLOOD SPECIMENOrdering Facility: [facility] Address: [address] [place] [address] Performed By: #### A LLBG ####[facility] [id number] [place] [address] [place] Glucose [Mass/Vol] 181 mg/dL High 60-105 [facility] Comment on above: Order Comment: Speci men Type: ARTERIAL BLOOD SPECIMENOrdering Facility: [facility] Address: [address] [place] [address] Performed By: #### A LLBG ####[facility] [id number] [place] [address] [place] HCO3 (Bld) [Moles/Vol] 23 mmol/L Normal 22-26 [facility] Comment on above: Order Comment: Speci men Type: ARTERIAL BLOOD SPECIMENOrdering Facility: [facility] Address: [address] [place] [address] Performed By: #### A LLBG ####[facility] [id number] [place] [address] [place] Hematocrit (Bld) [Volume fraction] 34.8 % Low 39.0-51.0 [facility] Comment on above: Order Comment: Speci men Type: ARTERIAL BLOOD SPECIMENOrdering Facility: [facility] Address: [address] [place] [address] Performed By: #### A LLBG ####[facility] [id number] [place] [address] [place] Hemoglobin (Bld) [Mass/Vol] 11.3 g/dL Low 13.0-17.0 [facility] Comment on above: Order Comment: Speci men Type: ARTERIAL BLOOD SPECIMENOrdering Facility: [facility] Address: [address] [place] [address] Performed By: #### A LLBG ####[facility] [id number] [place] [address] [place] Lactate [Moles/Vol] 5.5 mmol/L High 0.5-2.2 [facility] Comment on above: Order Comment: Speci men Type: ARTERIAL BLOOD SPECIMENOrdering Facility: [facility] Address: [address] [place] [address] Performed By: #### A LLBG ####[facility] [id number] [place] [address] [place] Oxygen (Bld) [Partial pressure] 132 mm Hg High 85-95 [facility] Comment on above: Order Comment: Speci men Type: ARTERIAL BLOOD SPECIMENOrdering Facility: [facility] Address: [address] [place] [address] Performed By: #### A LLBG ####[facility] [id number] [place] [address] [place] Oxyhemoglobin (BldA) [Mass fraction] 97 % Normal 95-98 [facility] Comment on above: Order Comment: Speci men Type: ARTERIAL BLOOD SPECIMENOrdering Facility: [facility] Address: [address] [place] [address] Performed By: #### A LLBG ####[facility] [id number] [place] [address] [place] pH (Bld) 7.37 [pH] Normal 7.35-7.45 [facility] Comment on above: Order Comment: Speci men Type: ARTERIAL BLOOD SPECIMENOrdering Facility: [facility] Address: [address] [place] [address] Performed By: #### A LLBG ####[facility] [id number] [place] [address] [place] PO2 / FIO2 RATIO 132 mmHg Low >300 [facility] Comment on above: Order Comment: Speci men Type: ARTERIAL BLOOD SPECIMENOrdering Facility: [facility] Address: [address] [place] [address] Performed By: #### A LLBG ####[facility] [id number] [place] [address] [place] Base deficit (BldA) [Moles/Vol] -2 mmol/L Normal -2-0 [facility] Comment on above: Order Comment: Speci men Type: ARTERIAL BLOOD SPECIMENOrdering Facility: [facility] Address: [address] [place] [address] Performed By: #### A LLBG ####[facility] [id number] [place] [address] [place] Body temperature 98.6 [degF] Normal [facility] Comment on above: Order Comment: Speci men Type: ARTERIAL BLOOD SPECIMENOrdering Facility: [facility] Address: [address] [place] [address] Performed By: #### A LLBG ####[facility] [id number] [place] [address] [place] Calcium.ionized (Bld) [Mass/Vol] 1.14 mmol/L Normal 1.08-1.30 [facility] Comment on above: Order Comment: Speci men Type: ARTERIAL BLOOD SPECIMENOrdering Facility: [facility] Address: [address] [place] [address] Performed By: #### A LLBG ####[facility] [id number] [place] [address] [place] Calcium.ionized adjusted to pH 7.4 (BldA) [Moles/Vol] 1.14 mmol/L Normal 1.08-1.30 [facility] Comment on above: Order Comment: Speci men Type: ARTERIAL BLOOD SPECIMENOrdering Facility: [facility] Address: [address] [place] [address] Performed By: #### A LLBG ####[facility] [id number] [place] [address] [place] Carboxyhemoglobin (BldA) [Mass fraction] 1.6 % Normal 0.0-2.0 [facility] Comment on above: Order Comment: Speci men Type: ARTERIAL BLOOD SPECIMENOrdering Facility: [facility] Address: [address] [place] [address] Result Comment: Carb oxyhemoglobin Reference Range for Smokers: 2.0-8.0% Performed By: #### A LLBG ####[facility] [id number] [place] [address] [place] CO2 (Bld) [Partial pressure] 37 mm Hg Normal 36-46 [facility] Comment on above: Order Comment: Speci men Type: ARTERIAL BLOOD SPECIMENOrdering Facility: [facility] Address: [address] [place] [address] Performed By: #### A LLBG ####[facility] [id number] [place] [address] [place] FIO2 30 % Normal [facility] Comment on above: Order Comment: Speci men Type: ARTERIAL BLOOD SPECIMENOrdering Facility: [facility] Address: [address] [place] [address] Performed By: #### A LLBG ####[facility] [id number] [place] [address] [place] Glucose [Mass/Vol] 152 mg/dL High 60-105 [facility] Comment on above: Order Comment: Speci men Type: ARTERIAL BLOOD SPECIMENOrdering Facility: [facility] Address: [address] [place] [address] Performed By: #### A LLBG ####[facility] [id number] [place] [address] [place] HCO3 (Bld) [Moles/Vol] 22 mmol/L Normal 22-26 [facility] Comment on above: Order Comment: Speci men Type: ARTERIAL BLOOD SPECIMENOrdering Facility: [facility] Address: [address] [place] [address] Performed By: #### A LLBG ####[facility] [id number] [place] [address] [place] Hematocrit (Bld) [Volume fraction] 33.5 % Low 39.0-51.0 [facility] Comment on above: Order Comment: Speci men Type: ARTERIAL BLOOD SPECIMENOrdering Facility: [facility] Address: [address] [place] [address] Performed By: #### A LLBG ####[facility] [id number] [place] [address] [place] Hemoglobin (Bld) [Mass/Vol] 10.9 g/dL Low 13.0-17.0 [facility] Comment on above: Order Comment: Speci men Type: ARTERIAL BLOOD SPECIMENOrdering Facility: [facility] Address: [address] [place] [address] Performed By: #### A LLBG ####[facility] [id number] [place] [address] [place] Lactate [Moles/Vol] 6.0 mmol/L High 0.5-2.2 [facility] Comment on above: Order Comment: Speci men Type: ARTERIAL BLOOD SPECIMENOrdering Facility: [facility] Address: [address] [place] [address] Performed By: #### A LLBG ####[facility] [id number] [place] [address] [place] Methemoglobin (Bld) [Mass fraction] 0.6 % Normal 0.0-1.5 [facility] Comment on above: Order Comment: Speci men Type: ARTERIAL BLOOD SPECIMENOrdering Facility: [facility] Address: [address] [place] [address] Performed By: #### A LLBG ####[facility] [id number] [place] [address] [place] O2 THERAPY VENT=Ventilator Normal [facility] Comment on above: Order Comment: Speci men Type: ARTERIAL BLOOD SPECIMENOrdering Facility: [facility] Address: [address] [place] [address] Performed By: #### A LLBG ####[facility] [id number] [place] [address] [place] Oxygen (Bld) [Partial pressure] 59 mm Hg Low 85-95 [facility] Comment on above: Order Comment: Speci men Type: ARTERIAL BLOOD SPECIMENOrdering Facility: [facility] Address: [address] [place] [address] Performed By: #### A LLBG ####[facility] [id number] [place] [address] [place] Oxyhemoglobin (BldA) [Mass fraction] 89 % Low 95-98 [facility] Comment on above: Order Comment: Speci men Type: ARTERIAL BLOOD SPECIMENOrdering Facility: [facility] Address: [address] [place] [address] Performed By: #### A LLBG ####[facility] [id number] [place] [address] [place] pH (Bld) 7.39 [pH] Normal 7.35-7.45 [facility] Comment on above: Order Comment: Speci men Type: ARTERIAL BLOOD SPECIMENOrdering Facility: [facility] Address: [address] [place] [address] Performed By: #### A LLBG ####[facility] [id number] [place] [address] [place] PO2 / FIO2 RATIO 197 mmHg Low >300 [facility] Comment on above: Order Comment: Speci men Type: ARTERIAL BLOOD SPECIMENOrdering Facility: [facility] Address: [address] [place] [address] Performed By: #### A LLBG ####[facility] [id number] [place] [address] [place] Potassium [Moles/Vol] 4.2 mmol/L Normal 3.5-5.0 [facility] Comment on above: Order Comment: Speci men Type: ARTERIAL BLOOD SPECIMENOrdering Facility: [facility] Address: [address] [place] [address] Performed By: #### A LLBG ####[facility] [id number] [place] [address] [place] Sodium [Moles/Vol] 135 mmol/L Low 136-144 [facility] Comment on above: Order Comment: Speci men Type: ARTERIAL BLOOD SPECIMENOrdering Facility: [facility] Address: [address] [place] [address] Performed By: #### A LLBG ####[facility] [id number] [place] [address] [place] Base deficit (BldA) [Moles/Vol] -3 mmol/L Low -2-0 [facility] Comment on above: Order Comment: Speci men Type: ARTERIAL BLOOD SPECIMENOrdering Facility: [facility] Address: [address] [place] [address] Performed By: #### A LLBG ####[facility] [id number] [place] [address] [place] Body temperature 98.6 [degF] Normal [facility] Comment on above: Order Comment: Speci men Type: ARTERIAL BLOOD SPECIMENOrdering Facility: [facility] Address: [address] [place] [address] Performed By: #### A LLBG ####[facility] [id number] [place] [address] [place] Order Comment: Speci men Type: VENOUS BLOOD SPECIMENOrdering Facility: [facility] Address: [address] [place] [address] Performed By: #### 2 4344-4 ####[facility] [id number] [place] [address] [place] Calcium.ionized (Bld) [Mass/Vol] 1.18 mmol/L Normal 1.08-1.30 [facility] Comment on above: Order Comment: Speci men Type: ARTERIAL BLOOD SPECIMENOrdering Facility: [facility] Address: [address] [place] [address] Performed By: #### A LLBG ####[facility] [id number] [place] [address] [place] Calcium.ionized adjusted to pH 7.4 (BldA) [Moles/Vol] 1.18 mmol/L Normal 1.08-1.30 [facility] Comment on above: Order Comment: Speci men Type: ARTERIAL BLOOD SPECIMENOrdering Facility: [facility] Address: [address] [place] [address] Performed By: #### A LLBG ####[facility] [id number] [place] [address] [place] Carboxyhemoglobin (BldA) [Mass fraction] 1.1 % Normal 0.0-2.0 [facility] Comment on above: Order Comment: Speci men Type: ARTERIAL BLOOD SPECIMENOrdering Facility: [facility] Address: [address] [place] [address] Result Comment: Carb oxyhemoglobin Reference Range for Smokers: 2.0-8.0% Performed By: #### A LLBG ####[facility] [id number] [place] [address] [place] CO2 (Bld) [Partial pressure] 34 mm Hg Low 36-46 [facility] Comment on above: Order Comment: Speci men Type: ARTERIAL BLOOD SPECIMENOrdering Facility: [facility] Address: [address] [place] [address] Performed By: #### A LLBG ####[facility] [id number] [place] [address] [place] FIO2 30 % Normal [facility] Comment on above: Order Comment: Speci men Type: ARTERIAL BLOOD SPECIMENOrdering Facility: [facility] Address: [address] [place] [address] Performed By: #### A LLBG ####[facility] [id number] [place] [address] [place] Order Comment: Speci men Type: VENOUS BLOOD SPECIMENOrdering Facility: [facility] Address: [address] [place] [address] Performed By: #### 2 4344-4 ####[facility] [id number] [place] [address] [place] Glucose [Mass/Vol] 148 mg/dL High 60-105 [facility] Comment on above: Order Comment: Speci men Type: ARTERIAL BLOOD SPECIMENOrdering Facility: [facility] Address: [address] [place] [address] Performed By: #### A LLBG ####[facility] [id number] [place] [address] [place] HCO3 (Bld) [Moles/Vol] 21 mmol/L Low 22-26 [facility] Comment on above: Order Comment: Speci men Type: ARTERIAL BLOOD SPECIMENOrdering Facility: [facility] Address: [address] [place] [id number] Performed By: #### A LLBG ####[facility] [id number] [place] [address] [place] Hematocrit (Bld) [Volume fraction] 34.2 % Low 39.0-51.0 [facility] Comment on above: Order Comment: Speci men Type: ARTERIAL BLOOD SPECIMENOrdering Facility: [facility] Address: [address] [place] [address] Performed By: #### A LLBG ####[facility] [id number] [place] [address] [place] Hemoglobin (Bld) [Mass/Vol] 11.1 g/dL Low 13.0-17.0 [facility] Comment on above: Order Comment: Speci men Type: ARTERIAL BLOOD SPECIMENOrdering Facility: [facility] Address: [address] [place] [address] Performed By: #### A LLBG ####[facility] [id number] [place] [address] [place] Lactate [Moles/Vol] 6.4 mmol/L High 0.5-2.2 [facility] Comment on above: Order Comment: Speci men Type: ARTERIAL BLOOD SPECIMENOrdering Facility: [facility] Address: [address] [place] [address] Performed By: #### A LLBG ####[facility] [id number] [place] [address] [place] Methemoglobin (Bld) [Mass fraction] 0.6 % Normal 0.0-1.5 [facility] Comment on above: Order Comment: Speci men Type: ARTERIAL BLOOD SPECIMENOrdering Facility: [facility] Address: [address] [place] [address] Performed By: #### A LLBG ####[facility] [id number] [place] [address] [place] O2 THERAPY VENT=Ventilator Normal [facility] Comment on above: Order Comment: Speci men Type: ARTERIAL BLOOD SPECIMENOrdering Facility: [facility] Address: [address] [place] [address] Performed By: #### A LLBG ####[facility] [id number] [place] [address] [place] Order Comment: Speci men Type: VENOUS BLOOD SPECIMENOrdering Facility: [facility] Address: [address] [place] [id number] Performed By: #### 2 4344-4 ####[facility] [id number] [address] [address] [place] Oxygen (Bld) [Partial pressure] 93 mm Hg Normal 85-95 [facility] Comment on above: Order Comment: Speci men Type: ARTERIAL BLOOD SPECIMENOrdering Facility: [facility] Address: [address] [place] [id number] Performed By: #### A LLBG ####[facility] [id number] [place] [address] [place] Oxyhemoglobin (BldA) [Mass fraction] 96 % Normal 95-98 [facility] Comment on above: Order Comment: Speci men Type: ARTERIAL BLOOD SPECIMENOrdering Facility: [facility] Address: [address] [place] [address] Performed By: #### A LLBG ####[facility] [id number] [place] [address] [place] pH (Bld) 7.40 [pH] Normal 7.35-7.45 [facility] Comment on above: Order Comment: Speci men Type: ARTERIAL BLOOD SPECIMENOrdering Facility: [facility] Address: [address] [place] [id number] Performed By: #### A LLBG ####[facility] [id number] [place] [id number] [place] PO2 / FIO2 RATIO 310 mmHg Normal >300 [facility] Comment on above: Order Comment: Speci men Type: ARTERIAL BLOOD SPECIMENOrdering Facility: [facility] Address: [address] [place] [id number] Performed By: #### A LLBG ####[facility] [id number] [place] [address] [place] Potassium [Moles/Vol] 4.3 mmol/L Normal 3.5-5.0 [facility] Comment on above: Order Comment: Speci men Type: ARTERIAL BLOOD SPECIMENOrdering Facility: [facility] Address: [address] [place] [address] Performed By: #### A LLBG ####[facility] [id number] [place] [address] [place] Base deficit (BldA) [Moles/Vol] -2 mmol/L Normal -2-0 [facility] Comment on above: Order Comment: Speci men Type: ARTERIAL BLOOD SPECIMENOrdering Facility: [facility] Address: [address] [place] [address] Performed By: #### A LLBG ####[facility] [id number] [place] [address] [place] Calcium.ionized adjusted to pH 7.4 (BldA) [Moles/Vol] 1.17 mmol/L Normal 1.08-1.30 [facility] Comment on above: Order Comment: Speci men Type: ARTERIAL BLOOD SPECIMENOrdering Facility: [facility] Address: [address] [place] [address] Performed By: #### A LLBG ####[facility] [id number] [place] [address] [place] Carboxyhemoglobin (BldA) [Mass fraction] 1.3 % Normal 0.0-2.0 [facility] Comment on above: Order Comment: Speci men Type: ARTERIAL BLOOD SPECIMENOrdering Facility: [facility] Address: [address] [place] [address] Result Comment: Carb oxyhemoglobin Reference Range for Smokers: 2.0-8.0% Performed By: #### A LLBG ####[facility] [id number] [place] [address] [place] CO2 (Bld) [Partial pressure] 36 mm Hg Normal 36-46 [facility] Comment on above: Order Comment: Speci men Type: ARTERIAL BLOOD SPECIMENOrdering Facility: [facility] Address: [address] [place] [address] Performed By: #### A LLBG ####[facility] [id number] [place] [address] [place] CO2 adjusted to patient's actual temperature (Bld) [Partial pressure] 37 mmHg Normal 36-46 [facility] Comment on above: Order Comment: Speci men Type: ARTERIAL BLOOD SPECIMENOrdering Facility: [facility] Address: [address] [place] [address] Performed By: #### A LLBG ####[facility] [id number] [place] [address] [place] Glucose [Mass/Vol] 143 mg/dL High 60-105 [facility] Comment on above: Order Comment: Speci men Type: ARTERIAL BLOOD SPECIMENOrdering Facility: [facility] Address: [address] [place] [address] Performed By: #### A LLBG ####[facility] [id number] [place] [address] [place] HCO3 (Bld) [Moles/Vol] 22 mmol/L Normal 22-26 [facility] Comment on above: Order Comment: Speci men Type: ARTERIAL BLOOD SPECIMENOrdering Facility: [facility] Address: [address] [place] [address] Performed By: #### A LLBG ####[facility] [id number] [place] [address] [place] Hematocrit (Bld) [Volume fraction] 35.5 % Low 39.0-51.0 [facility] Comment on above: Order Comment: Speci men Type: ARTERIAL BLOOD SPECIMENOrdering Facility: [facility] Address: [address] [place] [address] Performed By: #### A LLBG ####[facility] [id number] [place] [address] [place] Hemoglobin (Bld) [Mass/Vol] 11.5 g/dL Low 13.0-17.0 [facility] Comment on above: Order Comment: Speci men Type: ARTERIAL BLOOD SPECIMENOrdering Facility: [facility] Address: [address] [place] [address] Performed By: #### A LLBG ####[facility] [id number] [place] [address] [place] Lactate [Moles/Vol] 4.8 mmol/L High 0.5-2.2 [facility] Comment on above: Order Comment: Speci men Type: ARTERIAL BLOOD SPECIMENOrdering Facility: [facility] Address: [address] [place] [address] Performed By: #### A LLBG ####[facility] [id number] [place] [address] [place] Methemoglobin (Bld) [Mass fraction] 1.8 % High 0.0-1.5 [facility] Comment on above: Order Comment: Speci men Type: ARTERIAL BLOOD SPECIMENOrdering Facility: [facility] Address: [address] [place] [address] Performed By: #### A LLBG ####[facility] [id number] [place] [address] [place] Oxygen (Bld) [Partial pressure] 101 mm Hg High 85-95 [facility] Comment on above: Order Comment: Speci men Type: ARTERIAL BLOOD SPECIMENOrdering Facility: [facility] Address: [address] [place] [address] Performed By: #### A LLBG ####[facility] [id number] [place] [address] [place] Oxygen adjusted to patient's actual temperature (Bld) [Partial pressure] 103 mmHg High 85-95 [facility] Comment on above: Order Comment: Speci men Type: ARTERIAL BLOOD SPECIMENOrdering Facility: [facility] Address: [address] [place] [id number] Performed By: #### A LLBG ####[facility] [id number] [address] [address] [place] Oxyhemoglobin (BldA) [Mass fraction] 95 % Normal 95-98 [facility] Comment on above: Order Comment: Speci men Type: ARTERIAL BLOOD SPECIMENOrdering Facility: [facility] Address: [address] [place] [id number] Performed By: #### A LLBG ####[facility] [id number] [place] [address] [place] pH (Bld) 7.40 [pH] Normal 7.35-7.45 [facility] Comment on above: Order Comment: Speci men Type: ARTERIAL BLOOD SPECIMENOrdering Facility: [facility] Address: [address] [place] [id number] Performed By: #### A LLBG ####[facility] [id number] [place] [address] [place] pH adjusted to patient's actual temperature (Bld) 7.40 Normal 7.35-7.45 [facility] Comment on above: Order Comment: Speci men Type: ARTERIAL BLOOD SPECIMENOrdering Facility: [facility] Address: [address] [place] [id number] Performed By: #### A LLBG ####[facility] [id number] [place] [address] [place] PO2 / FIO2 RATIO 337 mmHg Normal >300 [facility] Comment on above: Order Comment: Speci men Type: ARTERIAL BLOOD SPECIMENOrdering Facility: [facility] Address: [address] [place] [id number] Performed By: #### A LLBG ####[facility] [id number] [place] [address] [place] Base deficit (BldA) [Moles/Vol] -1 mmol/L Normal -2-0 [facility] Comment on above: Order Comment: Speci men Type: ARTERIAL BLOOD SPECIMENOrdering Facility: [facility] Address: [address] [place] [address] Performed By: #### A LLBG ####[facility] [id number] [place] [address] [place] Body temperature 99.68 [degF] Normal [facility] Comment on above: Order Comment: Speci men Type: ARTERIAL BLOOD SPECIMENOrdering Facility: [facility] Address: [address] [place] [address] Performed By: #### A LLBG ####[facility] [id number] [place] [address] [place] Order Comment: Speci men Type: VENOUS BLOOD SPECIMENOrdering Facility: [facility] Address: [address] [place] [address] Performed By: #### 2 4344-4 ####[facility] [id number] [place] [address] [place] Calcium.ionized (Bld) [Mass/Vol] 1.19 mmol/L Normal 1.08-1.30 [facility] Comment on above: Order Comment: Speci men Type: ARTERIAL BLOOD SPECIMENOrdering Facility: [facility] Address: [address] [place] [address] Performed By: #### A LLBG ####[facility] [id number] [place] [address] [place] Calcium.ionized adjusted to pH 7.4 (BldA) [Moles/Vol] 1.20 mmol/L Normal 1.08-1.30 [facility] Comment on above: Order Comment: Speci men Type: ARTERIAL BLOOD SPECIMENOrdering Facility: [facility] Address: [address] [place] [address] Performed By: #### A LLBG ####[facility] [id number] [place] [address] [place] Carboxyhemoglobin (BldA) [Mass fraction] 1.2 % Normal 0.0-2.0 [facility] Comment on above: Order Comment: Speci men Type: ARTERIAL BLOOD SPECIMENOrdering Facility: [facility] Address: [address] [place] [address] Result Comment: Carb oxyhemoglobin Reference Range for Smokers: 2.0-8.0% Performed By: #### A LLBG ####[facility] [id number] [place] [address] [place] CO2 (Bld) [Partial pressure] 37 mm Hg Normal 36-46 [facility] Comment on above: Order Comment: Speci men Type: ARTERIAL BLOOD SPECIMENOrdering Facility: [facility] Address: [address] [place] [address] Performed By: #### A LLBG ####[facility] [id number] [place] [address] [place] CO2 adjusted to patient's actual temperature (Bld) [Partial pressure] 38 mmHg Normal 36-46 [facility] Comment on above: Order Comment: Speci men Type: ARTERIAL BLOOD SPECIMENOrdering Facility: [facility] Address: [address] [place] [address] Performed By: #### A LLBG ####[facility] [id number] [place] [address] [place] FIO2 30 % Normal [facility] Comment on above: Order Comment: Speci men Type: ARTERIAL BLOOD SPECIMENOrdering Facility: [facility] Address: [address] [place] [address] Performed By: #### A LLBG ####[facility] [id number] [place] [address] [place] Order Comment: Speci men Type: VENOUS BLOOD SPECIMENOrdering Facility: [facility] Address: [address] [place] [address] Performed By: #### 2 4344-4 ####[facility] [id number] [place] [address] [place] Glucose [Mass/Vol] 137 mg/dL High 60-105 [facility] Comment on above: Order Comment: Speci men Type: ARTERIAL BLOOD SPECIMENOrdering Facility: [facility] Address: [address] [place] [address] Performed By: #### A LLBG ####[facility] [id number] [place] [address] [place] HCO3 (Bld) [Moles/Vol] 23 mmol/L Normal 22-26 [facility] Comment on above: Order Comment: Speci men Type: ARTERIAL BLOOD SPECIMENOrdering Facility: [facility] Address: [address] [place] [address] Performed By: #### A LLBG ####[facility] [id number] [place] [address] [place] Hematocrit (Bld) [Volume fraction] 36.9 % Low 39.0-51.0 [facility] Comment on above: Order Comment: Speci men Type: ARTERIAL BLOOD SPECIMENOrdering Facility: [facility] Address: [address] [place] [address] Performed By: #### A LLBG ####[facility] [id number] [place] [address] [place] Hemoglobin (Bld) [Mass/Vol] 12.0 g/dL Low 13.0-17.0 [facility] Comment on above: Order Comment: Speci men Type: ARTERIAL BLOOD SPECIMENOrdering Facility: [facility] Address: [address] [place] [address] Performed By: #### A LLBG ####[facility] [id number] [place] [address] [place] Lactate [Moles/Vol] 4.6 mmol/L High 0.5-2.2 [facility] Comment on above: Order Comment: Speci men Type: ARTERIAL BLOOD SPECIMENOrdering Facility: [facility] Address: [address] [place] [address] Performed By: #### A LLBG ####[facility] [id number] [place] [address] [place] Methemoglobin (Bld) [Mass fraction] 1.6 % High 0.0-1.5 [facility] Comment on above: Order Comment: Speci men Type: ARTERIAL BLOOD SPECIMENOrdering Facility: [facility] Address: [address] [place] [address] Performed By: #### A LLBG ####[facility] [id number] [place] [address] [place] O2 THERAPY VENT=Ventilator Normal [facility] Comment on above: Order Comment: Speci men Type: ARTERIAL BLOOD SPECIMENOrdering Facility: [facility] Address: [address] [place] [address] Performed By: #### A LLBG ####[facility] [id number] [place] [address] [place] Order Comment: Speci men Type: VENOUS BLOOD SPECIMENOrdering Facility: [facility] Address: [address] [place] [address] Performed By: #### 2 4344-4 ####[facility] [id number] [place] [id number] [place] Oxygen (Bld) [Partial pressure] 123 mm Hg High 85-95 [facility] Comment on above: Order Comment: Speci men Type: ARTERIAL BLOOD SPECIMENOrdering Facility: [facility] Address: [address] [place] [address] Performed By: #### A LLBG ####[facility] [id number] [place] [address] [place] Oxygen adjusted to patient's actual temperature (Bld) [Partial pressure] 127 mmHg High 85-95 [facility] Comment on above: Order Comment: Speci men Type: ARTERIAL BLOOD SPECIMENOrdering Facility: [facility] Address: [address] [place] [address] Performed By: #### A LLBG ####[facility] [id number] [place] [address] [place] Oxyhemoglobin (BldA) [Mass fraction] 96 % Normal 95-98 [facility] Comment on above: Order Comment: Speci men Type: ARTERIAL BLOOD SPECIMENOrdering Facility: [facility] Address: [address] [place] [address] Performed By: #### A LLBG ####[facility] [id number] [place] [address] [place] PEEP/CPAP 8 cmH2O Normal [facility] Comment on above: Order Comment: Speci men Type: ARTERIAL BLOOD SPECIMENOrdering Facility: [facility] Address: [address] [place] [address] Performed By: #### A LLBG ####[facility] [id number] [place] [address] [place] Order Comment: Speci men Type: VENOUS BLOOD SPECIMENOrdering Facility: [facility] Address: [address] [place] [address] Performed By: #### 2 4344-4 ####[facility] [id number] [place] [id number] [place] pH (Bld) 7.41 [pH] Normal 7.35-7.45 [facility] Comment on above: Order Comment: Speci men Type: ARTERIAL BLOOD SPECIMENOrdering Facility: [facility] Address: [address] [place] [address] Performed By: #### A LLBG ####[facility] [id number] [place] [address] [place] pH adjusted to patient's actual temperature (Bld) 7.40 Normal 7.35-7.45 [facility] Comment on above: Order Comment: Speci men Type: ARTERIAL BLOOD SPECIMENOrdering Facility: [facility] Address: [address] [place] [address] Performed By: #### A LLBG ####[facility] [id number] [place] [address] [place] PO2 / FIO2 RATIO 410 mmHg Normal >300 [facility] Comment on above: Order Comment: Speci men Type: ARTERIAL BLOOD SPECIMENOrdering Facility: [facility] Address: [address] [place] [address] Performed By: #### A LLBG ####[facility] [id number] [place] [address] [place] Potassium [Moles/Vol] 4.7 mmol/L Normal 3.5-5.0 [facility] Comment on above: Order Comment: Speci men Type: ARTERIAL BLOOD SPECIMENOrdering Facility: [facility] Address: [address] [place] [address] Performed By: #### A LLBG ####[facility] [id number] [place] [address] [place] SET VENTILATOR RESPIRATORY RATE (BPM) 24 BPM Normal [facility] Comment on above: Order Comment: Speci men Type: ARTERIAL BLOOD SPECIMENOrdering Facility: [facility] Address: [address] [place] [address] Performed By: #### A LLBG ####[facility] [id number] [place] [address] [place] Order Comment: Speci men Type: VENOUS BLOOD SPECIMENOrdering Facility: [facility] Address: [address] [place] [address] Performed By: #### 2 4344-4 ####[facility] [id number] [place] [address] [place] Base deficit (BldA) [Moles/Vol] -1 mmol/L Normal -2-0 [facility] Comment on above: Order Comment: Speci men Type: ARTERIAL BLOOD SPECIMENOrdering Facility: [facility] Address: [address] [place] [address] Performed By: #### A LLBG ####[facility] [id number] [place] [address] [place] Body temperature 100.94 [degF] Normal [facility] Comment on above: Order Comment: Speci men Type: ARTERIAL BLOOD SPECIMENOrdering Facility: [facility] Address: [address] [place] [address] Performed By: #### A LLBG ####[facility] [id number] [place] [address] [place] Order Comment: Speci men Type: VENOUS BLOOD SPECIMENOrdering Facility: [facility] Address: [address] [place] [address] Performed By: #### 2 4344-4 ####[facility] [id number] [place] [address] [place] Calcium.ionized (Bld) [Mass/Vol] 1.22 mmol/L Normal 1.08-1.30 [facility] Comment on above: Order Comment: Speci men Type: ARTERIAL BLOOD SPECIMENOrdering Facility: [facility] Address: [address] [place] [address] Performed By: #### A LLBG ####[facility] [id number] [place] [address] [place] Calcium.ionized adjusted to pH 7.4 (BldA) [Moles/Vol] 1.21 mmol/L Normal 1.08-1.30 [facility] Comment on above: Order Comment: Speci men Type: ARTERIAL BLOOD SPECIMENOrdering Facility: [facility] Address: [address] [place] [address] Performed By: #### A LLBG ####[facility] [id number] [place] [address] [place] Carboxyhemoglobin (BldA) [Mass fraction] 1.5 % Normal 0.0-2.0 [facility] Comment on above: Order Comment: Speci men Type: ARTERIAL BLOOD SPECIMENOrdering Facility: [facility] Address: [address] [place] [address] Result Comment: Carb oxyhemoglobin Reference Range for Smokers: 2.0-8.0% Performed By: #### A LLBG ####[facility] [id number] [place] [address] [place] CO2 (Bld) [Partial pressure] 41 mm Hg Normal 36-46 [facility] Comment on above: Order Comment: Speci men Type: ARTERIAL BLOOD SPECIMENOrdering Facility: [facility] Address: [address] [place] [address] Performed By: #### A LLBG ####[facility] [id number] [place] [address] [place] CO2 adjusted to patient's actual temperature (Bld) [Partial pressure] 43 mmHg Normal 36-46 [facility] Comment on above: Order Comment: Speci men Type: ARTERIAL BLOOD SPECIMENOrdering Facility: [facility] Address: [address] [place] [address] Performed By: #### A LLBG ####[facility] [id number] [place] [address] [place] FIO2 30 % Normal [facility] Comment on above: Order Comment: Speci men Type: ARTERIAL BLOOD SPECIMENOrdering Facility: [facility] Address: [address] [place] [address] Performed By: #### A LLBG ####[facility] [id number] [place] [address] [place] Order Comment: Speci men Type: VENOUS BLOOD SPECIMENOrdering Facility: [facility] Address: [address] [place] [address] Performed By: #### 2 4344-4 ####[facility] [id number] [place] [address] [place] Glucose [Mass/Vol] 139 mg/dL High 60-105 [facility] Comment on above: Order Comment: Speci men Type: ARTERIAL BLOOD SPECIMENOrdering Facility: [facility] Address: [address] [place] [address] Performed By: #### A LLBG ####[facility] [id number] [place] [address] [place] HCO3 (Bld) [Moles/Vol] 24 mmol/L Normal 22-26 [facility] Comment on above: Order Comment: Speci men Type: ARTERIAL BLOOD SPECIMENOrdering Facility: [facility] Address: [address] [place] [address] Performed By: #### A LLBG ####[facility] [id number] [place] [address] [place] Hematocrit (Bld) [Volume fraction] 37.1 % Low 39.0-51.0 [facility] Comment on above: Order Comment: Speci men Type: ARTERIAL BLOOD SPECIMENOrdering Facility: [facility] Address: [address] [place] [address] Performed By: #### A LLBG ####[facility] [id number] [place] [address] [place] Hemoglobin (Bld) [Mass/Vol] 12.1 g/dL Low 13.0-17.0 [facility] Comment on above: Order Comment: Speci men Type: ARTERIAL BLOOD SPECIMENOrdering Facility: [facility] Address: [address] [place] [address] Performed By: #### A LLBG ####[facility] [id number] [place] [address] [place] Lactate [Moles/Vol] 4.2 mmol/L High 0.5-2.2 [facility] Comment on above: Order Comment: Speci men Type: ARTERIAL BLOOD SPECIMENOrdering Facility: [facility] Address: [address] [place] [address] Performed By: #### A LLBG ####[facility] [id number] [place] [address] [place] Order Comment: Speci men Type: VENOUS BLOOD SPECIMENOrdering Facility: [facility] Address: [address] [place] [address] Performed By: #### 2 4344-4 ####[facility] [id number] [place] [address] [place] Methemoglobin (Bld) [Mass fraction] 0.9 % Normal 0.0-1.5 [facility] Comment on above: Order Comment: Speci men Type: ARTERIAL BLOOD SPECIMENOrdering Facility: [facility] Address: [address] [place] [address] Performed By: #### A LLBG ####[facility] [id number] [place] [address] [place] O2 THERAPY VENT=Ventilator Normal [facility] Comment on above: Order Comment: Speci men Type: ARTERIAL BLOOD SPECIMENOrdering Facility: [facility] Address: [address] [place] [address] Performed By: #### A LLBG ####[facility] [id number] [place] [id number] [place] Order Comment: Speci men Type: VENOUS BLOOD SPECIMENOrdering Facility: [facility] Address: [address] [place] [id number] Performed By: #### 2 4344-4 ####[facility] [id number] [place] [address] [place] Oxygen (Bld) [Partial pressure] 123 mm Hg High 85-95 [facility] Comment on above: Order Comment: Speci men Type: ARTERIAL BLOOD SPECIMENOrdering Facility: [facility] Address: [address] [place], [place] [address] Performed By: #### A LLBG ####[facility] [id number] [place] [address] [place] Oxygen adjusted to patient's actual temperature (Bld) [Partial pressure] 131 mmHg High 85-95 [facility] Comment on above: Order Comment: Speci men Type: ARTERIAL BLOOD SPECIMENOrdering Facility: [facility] Address: [address] [place], [place] [address] Performed By: #### A LLBG ####[facility] [id number] [place] [address] [place] Oxyhemoglobin (BldA) [Mass fraction] 97 % Normal 95-98 [facility] Comment on above: Order Comment: Speci men Type: ARTERIAL BLOOD SPECIMENOrdering Facility: [facility] Address: [address] [place], [place] [address] Performed By: #### A LLBG ####[facility] [id number] [place] [address] [place] PEEP/CPAP 8 cmH2O Normal [facility] Comment on above: Order Comment: Speci men Type: ARTERIAL BLOOD SPECIMENOrdering Facility: [facility] Address: [address] [place], [place] [address] Performed By: #### A LLBG ####[facility] [id number] [place] [address] [place] Order Comment: Speci men Type: VENOUS BLOOD SPECIMENOrdering Facility: [facility] Address: [address] [place] [address] Performed By: #### 2 4344-4 ####[facility] [id number] [place] [address] [place] pH (Bld) 7.39 [pH] Normal 7.35-7.45 [facility] Comment on above: Order Comment: Speci men Type: ARTERIAL BLOOD SPECIMENOrdering Facility: [facility] Address: [address] [place] [address] Performed By: #### A LLBG ####[facility] [id number] [place] [address] [place] pH adjusted to patient's actual temperature (Bld) 7.37 Normal 7.35-7.45 [facility] Comment on above: Order Comment: Speci men Type: ARTERIAL BLOOD SPECIMENOrdering Facility: [facility] Address: [address] [place] [address] Performed By: #### A LLBG ####[facility] [id number] [place] [address] [place] PO2 / FIO2 RATIO 410 mmHg Normal >300 [facility] Comment on above: Order Comment: Speci men Type: ARTERIAL BLOOD SPECIMENOrdering Facility: [facility] Address: [address] [place] [address] Performed By: #### A LLBG ####[facility] [id number] [place] [address] [place] Potassium [Moles/Vol] 4.9 mmol/L Normal 3.5-5.0 [facility] Comment on above: Order Comment: Speci men Type: ARTERIAL BLOOD SPECIMENOrdering Facility: [facility] Address: [address] [place] [address] Performed By: #### A LLBG ####[facility] [id number] [place] [address] [place] SET VENTILATOR RESPIRATORY RATE (BPM) 24 BPM Normal [facility] Comment on above: Order Comment: Speci men Type: ARTERIAL BLOOD SPECIMENOrdering Facility: [facility] Address: [address] [place] [address] Performed By: #### A LLBG ####[facility] [id number] [place] [address] [place] Sodium [Moles/Vol] 138 mmol/L Normal 136-144 [facility] Comment on above: Order Comment: Speci men Type: ARTERIAL BLOOD SPECIMENOrdering Facility: [facility] Address: [address] [place] [address] Performed By: #### A LLBG ####[facility] [id number] [place] [address] [place] CBC panel Auto (Bld)on 01-23 Erythrocyte distribution width (RBC) [Ratio] 15.2 % High 11.5-15.0 [facility] Comment on above: Order Comment: Speci men Type: BLOOD SPECIMENOrdering Facility: [facility] Address: [address] [place] [address] Performed By: #### 5 8410-2 ####[facility] [id number] [place] [address] [place] Hematocrit (Bld) [Volume fraction] 36.5 % Low 39.0-51.0 [facility] Comment on above: Order Comment: Speci men Type: BLOOD SPECIMENOrdering Facility: [facility] Address: [address] [place] [address] Performed By: #### 5 8410-2 ####[facility] [id number] [place] [address] [place] Hemoglobin (Bld) [Mass/Vol] 11.7 g/dL Low 13.0-17.0 [facility] Comment on above: Order Comment: Speci men Type: BLOOD SPECIMENOrdering Facility: [facility] Address: [address] [place] [address] Performed By: #### 5 8410-2 ####[facility] [id number] [place] [address] [place] MCH (RBC) [Entitic mass] 27.5 pg Normal 26.0-34.0 [facility] Comment on above: Order Comment: Speci men Type: BLOOD SPECIMENOrdering Facility: [facility] Address: [address] [place] [address] Performed By: #### 5 8410-2 ####[facility] [id number] [place] [address] [place] MCHC (RBC) [Mass/Vol] 32.1 g/dL Normal 30.5-36.0 [facility] Comment on above: Order Comment: Speci men Type: BLOOD SPECIMENOrdering Facility: [facility] Address: [address] [place] [address] Performed By: #### 5 8410-2 ####[facility] [id number] [place] [address] [place] MCV (RBC) [Entitic vol] 85.9 fL Normal 80.0-100.0 [facility] Comment on above: Order Comment: Speci men Type: BLOOD SPECIMENOrdering Facility: [facility] Address: [address] [place] [address] Performed By: #### 5 8410-2 ####[facility] [id number] [place] [address] [place] Platelet mean volume (Bld) [Entitic vol] 10.7 fL Normal 9.0-12.7 [facility] Comment on above: Order Comment: Speci men Type: BLOOD SPECIMENOrdering Facility: [facility] Address: [address] [place] [address] Performed By: #### 5 8410-2 ####[facility] [id number] [place] [address] [place] Platelets (Bld) [#/Vol] 152 10*3/uL Normal 150-400 [facility] Comment on above: Order Comment: Speci men Type: BLOOD SPECIMENOrdering Facility: [facility] Address: [address] [place] [address] Performed By: #### 5 8410-2 ####[facility] [id number] [place] [address] [place] RBC (Bld) [#/Vol] 4.25 10*6/uL Normal 4.20-6.00 [facility] Comment on above: Order Comment: Speci men Type: BLOOD SPECIMENOrdering Facility: [facility] Address: [address] [place] [address] Performed By: #### 5 8410-2 ####[facility] [id number] [place] [address] [place] WBC (Bld) [#/Vol] 16.30 10*3/uL High 3.70-11.00 [facility] Comment on above: Order Comment: Speci men Type: BLOOD SPECIMENOrdering Facility: [facility] Address: [address] [place] [address] Performed By: #### 5 8410-2 ####[facility] [id number] [place] [address] [place] CK SerPl-cCncon 01-24-2024 CK [Catalytic activity/Vol] 754 U/L High 51-298 [facility] Comment on above: Order Comment: Speci men Type: BLOOD SPECIMENOrdering Facility: [facility] Address: [address] [place] [address] Performed By: #### 2 157-6 ####[facility] [id number] [place] [address] [place] Comp Metab 2000 Pnl SerPlon 01-24-2024 Sodium [Moles/Vol] 138 mmol/L Normal 136-144 [facility] Comment on above: Order Comment: Speci men Type: BLOOD SPECIMENOrdering Facility: [facility] Address: [address] [place] [address] Performed By: #### 2 4323-8 ####[facility] [id number] [address] [place] Order Comment: Speci men Type: VENOUS BLOOD SPECIMENOrdering Facility: [facility] Address: [address] [place] [address] Performed By: #### 2 4344-4 ####[facility] [id number] [address] [place] Order Comment: Speci men Type: ARTERIAL BLOOD SPECIMENOrdering Facility: [facility] Address: [address] [place] [address] Performed By: #### A LLBG ####[facility] [id number] [address] [place] Potassium [Moles/Vol] 4.5 mmol/L Normal 3.5-5.0 [facility] Comment on above: Order Comment: Speci men Type: BLOOD SPECIMENOrdering Facility: [facility] Address: [address] [place] [address] Performed By: #### 2 4323-8 ####[facility] [id number] [address] [place] Order Comment: Speci men Type: ARTERIAL BLOOD SPECIMENOrdering Facility: [facility] Address: [address] [place] [address] Performed By: #### A LLBG ####[facility] [id number] [place] [address] [place] Comprehensive metabolic 2000 panelon 01-24-2024 Albumin [Mass/Vol] 4.3 g/dL Normal 3.9-4.9 [facility] Comment on above: Order Comment: Speci men Type: BLOOD SPECIMENOrdering Facility: [facility] Address: [address] [place] [address] Performed By: #### 2 4323-8, HSTNT ####[facility] [id number] [place] [address] [place] ALP [Catalytic activity/Vol] 42 U/L Normal 38-113 [facility] Comment on above: Order Comment: Speci men Type: BLOOD SPECIMENOrdering Facility: [facility] Address: [address] [place] [address] Performed By: #### 2 4323-8, HSTNT ####[facility] [id number] [place] [address] [place] ALT [Catalytic activity/Vol] 23 U/L Normal 10-54 [facility] Comment on above: Order Comment: Speci men Type: BLOOD SPECIMENOrdering Facility: [facility] Address: [address] [place] [address] Performed By: #### 2 4323-8, HSTNT ####[facility] [id number] [place] [address] [place] Anion gap [Moles/Vol] 15 mmol/L Normal 8-15 [facility] Comment on above: Order Comment: Speci men Type: BLOOD SPECIMENOrdering Facility: [facility] Address: [address] [place] [address] Performed By: #### 2 4323-8, HSTNT ####[facility] [id number] [place] [address] [place] AST [Catalytic activity/Vol] 76 U/L High 14-40 [facility] Comment on above: Order Comment: Speci men Type: BLOOD SPECIMENOrdering Facility: [facility] Address: [address] [place] [address] Performed By: #### 2 4323-8, HSTNT ####[facility] [id number] [place] [address] [place] Bilirubin [Mass/Vol] 0.4 mg/dL Normal 0.2-1.3 [facility] Comment on above: Order Comment: Speci men Type: BLOOD SPECIMENOrdering Facility: [facility] Address: [address] [place] [address] Performed By: #### 2 4323-8, HSTNT ####[facility] [id number] [place] [address] [place] Calcium [Mass/Vol] 9.5 mg/dL Normal 8.5-10.2 [facility] Comment on above: Order Comment: Speci men Type: BLOOD SPECIMENOrdering Facility: [facility] Address: [address] [place] [address] Performed By: #### 2 4323-8, HSTNT ####[facility] [id number] [place] [address] [place] Chloride [Moles/Vol] 102 mmol/L Normal 98-107 [facility] Comment on above: Order Comment: Speci men Type: BLOOD SPECIMENOrdering Facility: [facility] Address: [address] [place] [address] Performed By: #### 2 4323-8, HSTNT ####[facility] [id number] [place] [address] [place] CO2 [Moles/Vol] 22 mmol/L Normal 22-30 [facility] Comment on above: Order Comment: Speci men Type: BLOOD SPECIMENOrdering Facility: [facility] Address: [address] [place] [address] Performed By: #### 2 4323-8, HSTNT ####[facility] [id number] [place] [address] [place] Creatinine [Mass/Vol] 1.37 mg/dL High 0.73-1.22 [facility] Comment on above: Order Comment: Speci men Type: BLOOD SPECIMENOrdering Facility: [facility] Address: [address] [place] [address] Performed By: #### 2 4323-8, HSTNT ####[facility] [id number] [place] [address] [place] Creatinine and Glomerular filtration rate.predicted panel (S/P/Bld) 57 mL/min/1.73m??? Low >=60 [facility] Comment on above: Order Comment: Speci men Type: BLOOD SPECIMENOrdering Facility: [facility] Address: [address] [place] [address] Result Comment: Talisha mated Glomerular Filtration Rate (eGFR) is calculated using the 2020 CKD-EPI creatinine equation. This equation utilizes serum creatinine, sex, and age as parameters. The creatinine assay has traceable calibration to isotope dilution-mass spectrometry. Refer to KDIGO guidelines for clinical interpretation. In patients with unstable renal function, e.g. those with acute kidney injury, the eGFR may not accurately reflect actual GFR. Performed By: #### 2 4323-8, HSTNT ####[facility] [id number] [place] [address] [place] Potassium [Moles/Vol] 5.0 mmol/L Normal 3.7-5.1 [facility] Comment on above: Order Comment: Speci men Type: BLOOD SPECIMENOrdering Facility: [facility] Address: [address] [place] [address] Performed By: #### 2 4323-8, HSTNT ####[facility] [id number] [address] [id number] [address] [place] Protein [Mass/Vol] 6.5 g/dL Normal 6.3-8.0 [facility] Comment on above: Order Comment: Speci men Type: BLOOD SPECIMENOrdering Facility: [facility] Address: [address] [place] [address] Performed By: #### 2 4323-8, HSTNT ####[facility] [id number] [place] [address] [place] Urea nitrogen [Mass/Vol] 28 mg/dL High 9-24 [facility] Comment on above: Order Comment: Speci men Type: BLOOD SPECIMENOrdering Facility: [facility] Address: [address] [place] [address] Performed By: #### 2 4323-8, HSTNT ####[facility] [id number] [place] [address] [place] ECHO LIMITEDon 01-24-2024 ECHO LIMITED Normal [facility] Gas + CO Pnl BldVon 01-24-20 Body temperature 98.6 [degF] Normal [facility] Comment on above: Order Comment: Speci men Type: VENOUS BLOOD SPECIMENOrdering Facility: [facility] Address: [address] [place] [address] Performed By: #### 2 4344-4 ####[facility] [id number] [place] [address] [place] Order Comment: Speci men Type: ARTERIAL BLOOD SPECIMENOrdering Facility: [facility] Address: [address] [place] [address] Performed By: #### A LLBG ####[facility] [id number] [place] [address] [place] FIO2 30 % Normal [facility] Comment on above: Order Comment: Speci men Type: VENOUS BLOOD SPECIMENOrdering Facility: [facility] Address: [address] [place] [address] Performed By: #### 2 4344-4 ####[facility] [id number] [address] [place] Order Comment: Speci men Type: ARTERIAL BLOOD SPECIMENOrdering Facility: [facility] Address: [address] [place] [address] Performed By: #### A LLBG ####[facility] [id number] [place] [address] [place] Hematocrit (Bld) [Volume fraction] 32.3 % Low 39.0-51.0 [facility] Comment on above: Order Comment: Speci men Type: VENOUS BLOOD SPECIMENOrdering Facility: [facility] Address: [address] [place] [address] Performed By: #### 2 4344-4 ####[facility] [id number] [address] [place] Order Comment: Speci men Type: ARTERIAL BLOOD SPECIMENOrdering Facility: [facility] Address: [address] [place] [address] Performed By: #### A LLBG ####[facility] [id number] [place] [address] [place] Hemoglobin (Bld) [Mass/Vol] 10.5 g/dL Low 13.0-17.0 [facility] Comment on above: Order Comment: Speci men Type: VENOUS BLOOD SPECIMENOrdering Facility: [facility] Address: [address] [place], [place] [address] Performed By: #### 2 4344-4 ####[facility] [id number] [address] [place] Order Comment: Speci men Type: ARTERIAL BLOOD SPECIMENOrdering Facility: [facility] Address: [address] [place] [address] Performed By: #### A LLBG ####[facility] [id number] [address] [address] [place] O2 THERAPY VENT=Ventilator Normal [facility] Comment on above: Order Comment: Speci men Type: VENOUS BLOOD SPECIMENOrdering Facility: [facility] Address: [address] [place] [id number] Performed By: #### 2 4344-4 ####[facility] [id number] [place] [id number] [place] Order Comment: Speci men Type: ARTERIAL BLOOD SPECIMENOrdering Facility: [facility] Address: [address] [place] [address] Performed By: #### A LLBG ####[facility] [id number] [place] [address] [place] Sodium [Moles/Vol] 139 mmol/L Normal 136-144 [facility] Comment on above: Order Comment: Speci men Type: VENOUS BLOOD SPECIMENOrdering Facility: [facility] Address: [address] [place], [place] [address] Performed By: #### 2 4344-4 ####[facility] [id number] [place] [address] [place] Order Comment: Speci men Type: BLOOD SPECIMENOrdering Facility: [facility] Address: [address] [place] [id number] Performed By: #### 2 4323-8, HSTNT ####[facility] [id number] [place] [id number] [place] Body temperature 98.6 [degF] Normal [facility] Comment on above: Order Comment: Speci men Type: VENOUS BLOOD SPECIMENOrdering Facility: [facility] Address: [address] [place] [id number] Performed By: #### 2 4344-4 ####[facility] [id number] [address] [address] [place] Order Comment: Speci men Type: ARTERIAL BLOOD SPECIMENOrdering Facility: [facility] Address: [address] [place] [address] Performed By: #### A LLBG ####[facility] [id number] [place] [address] [place] FIO2 60 % Normal [facility] Comment on above: Order Comment: Speci men Type: VENOUS BLOOD SPECIMENOrdering Facility: [facility] Address: [address] [place] [address] Performed By: #### 2 4344-4 ####[facility] [id number] [place] [address] [place] Order Comment: Speci men Type: ARTERIAL BLOOD SPECIMENOrdering Facility: [facility] Address: [address] [place] [address] Performed By: #### A LLBG ####[facility] [id number] [place] [address] [place] Glucose [Mass/Vol] 150 mg/dL High 60-105 [facility] Comment on above: Order Comment: Speci men Type: VENOUS BLOOD SPECIMENOrdering Facility: [facility] Address: [address] [place] [address] Performed By: #### 2 4344-4 ####[facility] [id number] [place] [address] [place] Order Comment: Speci men Type: ARTERIAL BLOOD SPECIMENOrdering Facility: [facility] Address: [address] [place] [id number] Performed By: #### A LLBG ####[facility] [id number] [place] [id number] [place] HCO3 (Bld) [Moles/Vol] 24 mmol/L Normal 22-26 [facility] Comment on above: Order Comment: Speci men Type: VENOUS BLOOD SPECIMENOrdering Facility: [facility] Address: [address] [place] [address] Performed By: #### 2 4344-4 ####[facility] [id number] [place] [address] [place] Order Comment: Speci men Type: ARTERIAL BLOOD SPECIMENOrdering Facility: [facility] Address: [address] [place] [address] Performed By: #### A LLBG ####[facility] [id number] [place] [address] [place] Hemoglobin (Bld) [Mass/Vol] 11.5 g/dL Low 13.0-17.0 [facility] Comment on above: Order Comment: Speci men Type: VENOUS BLOOD SPECIMENOrdering Facility: [facility] Address: [address] [place] [address] Performed By: #### 2 4344-4 ####[facility] [id number] [address] [place] Order Comment: Speci men Type: ARTERIAL BLOOD SPECIMENOrdering Facility: [facility] Address: [address] [place] [address] Performed By: #### A LLBG ####[facility] [id number] [place] [address] [place] O2 THERAPY VENT=Ventilator Normal [facility] Comment on above: Order Comment: Speci men Type: VENOUS BLOOD SPECIMENOrdering Facility: [facility] Address: [address] [place] [address] Performed By: #### 2 4344-4 ####[facility] [id number] [place] [address] [place] Order Comment: Speci men Type: ARTERIAL BLOOD SPECIMENOrdering Facility: [facility] Address: [address] [place] [address] Performed By: #### A LLBG ####[facility] [id number] [address] [address] [place] Potassium [Moles/Vol] 3.7 mmol/L Normal 3.5-5.0 [facility] Comment on above: Order Comment: Speci men Type: VENOUS BLOOD SPECIMENOrdering Facility: [facility] Address: [address] [place] [address] Performed By: #### 2 4344-4 ####[facility] [id number] [place] [address] [place] Order Comment: Speci men Type: ARTERIAL BLOOD SPECIMENOrdering Facility: [facility] Address: [address] [place] [address] Performed By: #### A LLBG ####[facility] [id number] [place] [address] [place] Body temperature 98.6 [degF] Normal [facility] Comment on above: Order Comment: Speci men Type: VENOUS BLOOD SPECIMENOrdering Facility: [facility] Address: [address] [place] [address] Performed By: #### 2 4344-4 ####[facility] [id number] [place] [address] [place] Order Comment: Speci men Type: ARTERIAL BLOOD SPECIMENOrdering Facility: [facility] Address: [address] [place] [address] Performed By: #### A LLBG ####[facility] [id number] [place] [address] [place] FIO2 100 % Normal [facility] Comment on above: Order Comment: Speci men Type: VENOUS BLOOD SPECIMENOrdering Facility: [facility] Address: [address] [place] [id number] Performed By: #### 2 4344-4 ####[facility] [id number] [place] [id number] [place] Order Comment: Speci men Type: ARTERIAL BLOOD SPECIMENOrdering Facility: [facility] Address: [address] [place] [address] Performed By: #### A LLBG ####[facility] [id number] [place] [address] [place] Methemoglobin (Bld) [Mass fraction] 0.6 % Normal 0.0-1.5 [facility] Comment on above: Order Comment: Speci men Type: VENOUS BLOOD SPECIMENOrdering Facility: [facility] Address: [address] [place] [address] Performed By: #### 2 4344-4 ####[facility] [id number] [place] [address] [place] Order Comment: Speci men Type: ARTERIAL BLOOD SPECIMENOrdering Facility: [facility] Address: [address] [place] [address] Performed By: #### A LLBG ####[facility] [id number] [place] [address] [place] O2 THERAPY VENT=Ventilator Normal [facility] Comment on above: Order Comment: Speci men Type: VENOUS BLOOD SPECIMENOrdering Facility: [facility] Address: [address] [place] [address] Performed By: #### 2 4344-4 ####[facility] [id number] [place] [id number] [place] Order Comment: Speci men Type: ARTERIAL BLOOD SPECIMENOrdering Facility: [facility] Address: [address] [place] [address] Performed By: #### A LLBG ####[facility] [id number] [place] [id number] [place] Potassium [Moles/Vol] 4.1 mmol/L Normal 3.5-5.0 [facility] Comment on above: Order Comment: Speci men Type: VENOUS BLOOD SPECIMENOrdering Facility: [facility] Address: [address] [place] [address] Performed By: #### 2 4344-4 ####[facility] [id number] [place] [address] [place] Order Comment: Speci men Type: ARTERIAL BLOOD SPECIMENOrdering Facility: [facility] Address: [address] [place] [address] Performed By: #### A LLBG ####[facility] [id number] [place] [address] [place] Body temperature 99.32 [degF] Normal [facility] Comment on above: Order Comment: Speci men Type: VENOUS BLOOD SPECIMENOrdering Facility: [facility] Address: [address] [place] [address] Performed By: #### 2 4344-4 ####[facility] [id number] [place] [address] [place] Order Comment: Speci men Type: ARTERIAL BLOOD SPECIMENOrdering Facility: [facility] Address: [address] [place] [address] Performed By: #### A LLBG ####[facility] [id number] [place] [address] [place] Calcium.ionized (Bld) [Mass/Vol] 1.17 mmol/L Normal 1.08-1.30 [facility] Comment on above: Order Comment: Speci men Type: VENOUS BLOOD SPECIMENOrdering Facility: [facility] Address: [address] [place] [address] Performed By: #### 2 4344-4 ####[facility] [id number] [place] [address] [place] Order Comment: Speci men Type: ARTERIAL BLOOD SPECIMENOrdering Facility: [facility] Address: [address] [place] [id number] Performed By: #### A LLBG ####[facility] [id number] [place] [address] [place] FIO2 30 % Normal [facility] Comment on above: Order Comment: Speci men Type: VENOUS BLOOD SPECIMENOrdering Facility: [facility] Address: [address] [place] [address] Performed By: #### 2 4344-4 ####[facility] [id number] [place] [id number] [place] Order Comment: Speci men Type: ARTERIAL BLOOD SPECIMENOrdering Facility: [facility] Address: [address] [place] [address] Performed By: #### A LLBG ####[facility] [id number] [place] [address] [place] O2 THERAPY VENT=Ventilator Normal [facility] Comment on above: Order Comment: Speci men Type: VENOUS BLOOD SPECIMENOrdering Facility: [facility] Address: [address] [place], [place] [address] Performed By: #### 2 4344-4 ####[facility] [id number] [place] [address] [place] Order Comment: Speci men Type: ARTERIAL BLOOD SPECIMENOrdering Facility: [facility] Address: [address] [place] [address] Performed By: #### A LLBG ####[facility] [id number] [place] [id number] [place] PEEP/CPAP 8 cmH2O Normal [facility] Comment on above: Order Comment: Speci men Type: VENOUS BLOOD SPECIMENOrdering Facility: [facility] Address: [address] [place] [id number] Performed By: #### 2 4344-4 ####[facility] [id number] [place] [address] [place] Order Comment: Speci men Type: ARTERIAL BLOOD SPECIMENOrdering Facility: [facility] Address: [address] [place] [address] Performed By: #### A LLBG ####[facility] [id number] [place] [address] [place] SET VENTILATOR RESPIRATORY RATE (BPM) 24 BPM Normal [facility] Comment on above: Order Comment: Speci men Type: VENOUS BLOOD SPECIMENOrdering Facility: [facility] Address: [address] [place] [address] Performed By: #### 2 4344-4 ####[facility] [id number] [place] [address] [place] Order Comment: Speci men Type: ARTERIAL BLOOD SPECIMENOrdering Facility: [facility] Address: [address] [place] [address] Performed By: #### A LLBG ####[facility] [id number] [place] [address] [place] Gas and Carbon monoxide pane l (BldV)on 01-24-2024 Base excess Calc (BldV) [Moles/Vol] 2 mmol/L Normal 0-2 [facility] Comment on above: Order Comment: Speci men Type: VENOUS BLOOD SPECIMENOrdering Facility: [facility] Address: [address] [place] [address] Performed By: #### 2 4344-4 ####[facility] [id number] [place] [address] [place] Calcium.ionized (Bld) [Mass/Vol] 1.23 mmol/L Normal 1.08-1.30 [facility] Comment on above: Order Comment: Speci men Type: VENOUS BLOOD SPECIMENOrdering Facility: [facility] Address: [address] [place] [address] Performed By: #### 2 4344-4 ####[facility] [id number] [place] [address] [place] Calcium.ionized adjusted to pH 7.4 (BldA) [Moles/Vol] 1.21 mmol/L Normal 1.08-1.30 [facility] Comment on above: Order Comment: Speci men Type: VENOUS BLOOD SPECIMENOrdering Facility: [facility] Address: [address] [place] [address] Performed By: #### 2 4344-4 ####[facility] [id number] [place] [address] [place] Carboxyhemoglobin (BldV) [Mass fraction] 1.5 % Normal 0.0-2.0 [facility] Comment on above: Order Comment: Speci men Type: VENOUS BLOOD SPECIMENOrdering Facility: [facility] Address: [address] [place] [address] Result Comment: Carb oxyhemoglobin Reference Range for Smokers: 2.0-8.0% Performed By: #### 2 4344-4 ####[facility] [id number] [place] [address] [place] CO2 (BldV) [Partial pressure] 48 mm[Hg] Normal 42-55 [facility] Comment on above: Order Comment: Speci men Type: VENOUS BLOOD SPECIMENOrdering Facility: [facility] Address: [address] [place] [address] Performed By: #### 2 4344-4 ####[facility] [id number] [place] [address] [place] Glucose [Mass/Vol] 131 mg/dL High 60-105 [facility] Comment on above: Order Comment: Speci men Type: VENOUS BLOOD SPECIMENOrdering Facility: [facility] Address: [address] [place] [address] Performed By: #### 2 4344-4 ####[facility] [id number] [place] [address] [place] HCO3 (Bld) [Moles/Vol] 27 mmol/L Normal 24-28 [facility] Comment on above: Order Comment: Speci men Type: VENOUS BLOOD SPECIMENOrdering Facility: [facility] Address: [address] [place] [address] Performed By: #### 2 4344-4 ####[facility] [id number] [place] [address] [place] Lactate [Moles/Vol] 1.4 mmol/L Normal 0.5-2.2 [facility] Comment on above: Order Comment: Speci men Type: VENOUS BLOOD SPECIMENOrdering Facility: [facility] Address: [address] [place] [address] Performed By: #### 2 4344-4 ####[facility] [id number] [place] [address] [place] Methemoglobin (Bld) [Mass fraction] 0.9 % Normal 0.0-1.5 [facility] Comment on above: Order Comment: Speci men Type: VENOUS BLOOD SPECIMENOrdering Facility: [facility] Address: [address] [place] [address] Performed By: #### 2 4344-4 ####[facility] [id number] [place] [address] [place] Oxygen (BldV) [Partial pressure] 44 mm[Hg] Normal 35-45 [facility] Comment on above: Order Comment: Speci men Type: VENOUS BLOOD SPECIMENOrdering Facility: [facility] Address: [address] [place] [address] Performed By: #### 2 4344-4 ####[facility] [id number] [place] [address] [place] Oxygen saturation in Venous blood 77 % Normal 60-85 [facility] Comment on above: Order Comment: Speci men Type: VENOUS BLOOD SPECIMENOrdering Facility: [facility] Address: [address] [place] [id number] Performed By: #### 2 4344-4 ####[facility] [id number] [place] [address] [place] Oxyhemoglobin (BldV) [Mass fraction] 75 % Normal 60-85 [facility] Comment on above: Order Comment: Speci men Type: VENOUS BLOOD SPECIMENOrdering Facility: [facility] Address: [address] [place] [address] Performed By: #### 2 4344-4 ####[facility] [id number] [place] [address] [place] pH (BldV) 7.37 [pH] Normal 7.32-7.42 [facility] Comment on above: Order Comment: Speci men Type: VENOUS BLOOD SPECIMENOrdering Facility: [facility] Address: [address] [place] [address] Performed By: #### 2 4344-4 ####[facility] [id number] [place] [address] [place] Potassium [Moles/Vol] 4.2 mmol/L Normal 3.5-5.0 [facility] Comment on above: Order Comment: Speci men Type: VENOUS BLOOD SPECIMENOrdering Facility: [facility] Address: [address] [place] [address] Performed By: #### 2 4344-4 ####[facility] [id number] [place] [address] [place] Base excess Calc (BldV) [Moles/Vol] 3 mmol/L High 0-2 [facility] Comment on above: Order Comment: Speci men Type: VENOUS BLOOD SPECIMENOrdering Facility: [facility] Address: [address] [place], [place] [address] Performed By: #### 2 4344-4 ####[facility] [id number] [place] [address] [place] Calcium.ionized (Bld) [Mass/Vol] 1.17 mmol/L Normal 1.08-1.30 [facility] Comment on above: Order Comment: Speci men Type: VENOUS BLOOD SPECIMENOrdering Facility: [facility] Address: [address] [place] [address] Performed By: #### 2 4344-4 ####[facility] [id number] [place] [address] [place] Calcium.ionized adjusted to pH 7.4 (BldA) [Moles/Vol] 1.19 mmol/L Normal 1.08-1.30 [facility] Comment on above: Order Comment: Speci men Type: VENOUS BLOOD SPECIMENOrdering Facility: [facility] Address: [address] [place] [address] Performed By: #### 2 4344-4 ####[facility] [id number] [place] [address] [place] Carboxyhemoglobin (BldV) [Mass fraction] 0.8 % Normal 0.0-2.0 [facility] Comment on above: Order Comment: Speci men Type: VENOUS BLOOD SPECIMENOrdering Facility: [facility] Address: [address] [place] [address] Result Comment: Carb oxyhemoglobin Reference Range for Smokers: 2.0-8.0% Performed By: #### 2 4344-4 ####[facility] [id number] [place] [address] [place] CO2 (BldV) [Partial pressure] 42 mm[Hg] Normal 42-55 [facility] Comment on above: Order Comment: Speci men Type: VENOUS BLOOD SPECIMENOrdering Facility: [facility] Address: [address] [place] [address] Performed By: #### 2 4344-4 ####[facility] [id number] [place] [address] [place] CO2 adjusted to patient's actual temperature (BldV) [Partial pressure] 41 mmHg Low 42-55 [facility] Comment on above: Order Comment: Speci men Type: VENOUS BLOOD SPECIMENOrdering Facility: [facility] Address: [address] [place] [address] Performed By: #### 2 4344-4 ####[facility] [id number] [place] [address] [place] Hemoglobin (Bld) [Mass/Vol] 10.6 g/dL Low 13.0-17.0 [facility] Comment on above: Order Comment: Speci men Type: VENOUS BLOOD SPECIMENOrdering Facility: [facility] Address: [address] [place] [address] Performed By: #### 2 4344-4 ####[facility] [id number] [place] [address] [place] Lactate [Moles/Vol] 2.0 mmol/L Normal 0.5-2.2 [facility] Comment on above: Order Comment: Speci men Type: VENOUS BLOOD SPECIMENOrdering Facility: [facility] Address: [address] [place] [address] Performed By: #### 2 4344-4 ####[facility] [id number] [place] [address] [place] Methemoglobin (Bld) [Mass fraction] 1.4 % Normal 0.0-1.5 [facility] Comment on above: Order Comment: Speci men Type: VENOUS BLOOD SPECIMENOrdering Facility: [facility] Address: [address] [place] [address] Performed By: #### 2 4344-4 ####[facility] [id number] [place] [address] [place] Oxygen (BldV) [Partial pressure] 46 mm[Hg] High 35-45 [facility] Comment on above: Order Comment: Speci men Type: VENOUS BLOOD SPECIMENOrdering Facility: [facility] Address: [address] [place] [id number] Performed By: #### 2 4344-4 ####[facility] [id number] [address] [address] [place] Oxygen adjusted to patient's actual temperature (BldV) [Partial pressure] 45 mmHg Normal 35-45 [facility] Comment on above: Order Comment: Speci men Type: VENOUS BLOOD SPECIMENOrdering Facility: [facility] Address: [address] [place] [address] Performed By: #### 2 4344-4 ####[facility] [id number] [place] [address] [place] Oxygen saturation in Venous blood 82 % Normal 60-85 [facility] Comment on above: Order Comment: Speci men Type: VENOUS BLOOD SPECIMENOrdering Facility: [facility] Address: [address] [place] [address] Performed By: #### 2 4344-4 ####[facility] [id number] [place] [address] [place] Oxyhemoglobin (BldV) [Mass fraction] 80 % Normal 60-85 [facility] Comment on above: Order Comment: Speci men Type: VENOUS BLOOD SPECIMENOrdering Facility: [facility] Address: [address] [place] [address] Performed By: #### 2 4344-4 ####[facility] [id number] [place] [id number] [place] pH (BldV) 7.43 [pH] High 7.32-7.42 [facility] Comment on above: Order Comment: Speci men Type: VENOUS BLOOD SPECIMENOrdering Facility: [facility] Address: [address] [place], [place] [address] Performed By: #### 2 4344-4 ####[facility] [id number] [place] [address] [place] pH adjusted to patient's actual temperature (BldV) 7.43 High 7.32-7.42 [facility] Comment on above: Order Comment: Speci men Type: VENOUS BLOOD SPECIMENOrdering Facility: [facility] Address: [address] [place] [address] Performed By: #### 2 4344-4 ####[facility] [id number] [place] [address] [place] Potassium [Moles/Vol] 4.0 mmol/L Normal 3.5-5.0 [facility] Comment on above: Order Comment: Speci men Type: VENOUS BLOOD SPECIMENOrdering Facility: [facility] Address: [address] [place] [address] Performed By: #### 2 4344-4 ####[facility] [id number] [place] [address] [place] Sodium [Moles/Vol] 136 mmol/L Normal 136-144 [facility] Comment on above: Order Comment: Speci men Type: VENOUS BLOOD SPECIMENOrdering Facility: [facility] Address: [address] [place] [address] Performed By: #### 2 4344-4 ####[facility] [id number] [place] [address] [place] Base excess Calc (BldV) [Moles/Vol] 3 mmol/L High 0-2 [facility] Comment on above: Order Comment: Speci men Type: VENOUS BLOOD SPECIMENOrdering Facility: [facility] Address: [address] [place] [address] Performed By: #### 2 4344-4 ####[facility] [id number] [place] [address] [place] Calcium.ionized (Bld) [Mass/Vol] 1.20 mmol/L Normal 1.08-1.30 [facility] Comment on above: Order Comment: Speci men Type: VENOUS BLOOD SPECIMENOrdering Facility: [facility] Address: [address] [place] [address] Performed By: #### 2 4344-4 ####[facility] [id number] [place] [address] [place] Calcium.ionized adjusted to pH 7.4 (BldA) [Moles/Vol] 1.22 mmol/L Normal 1.08-1.30 [facility] Comment on above: Order Comment: Speci men Type: VENOUS BLOOD SPECIMENOrdering Facility: [facility] Address: [address] [place] [address] Performed By: #### 2 4344-4 ####[facility] [id number] [place] [address] [place] Carboxyhemoglobin (BldV) [Mass fraction] 1.3 % Normal 0.0-2.0 [facility] Comment on above: Order Comment: Speci men Type: VENOUS BLOOD SPECIMENOrdering Facility: [facility] Address: [address] [place] [address] Result Comment: Carb oxyhemoglobin Reference Range for Smokers: 2.0-8.0% Performed By: #### 2 4344-4 ####[facility] [id number] [place] [address] [place] CO2 (BldV) [Partial pressure] 40 mm[Hg] Low 42-55 [facility] Comment on above: Order Comment: Speci men Type: VENOUS BLOOD SPECIMENOrdering Facility: [facility] Address: [address] [place] [address] Performed By: #### 2 4344-4 ####[facility] [id number] [place] [address] [place] CO2 adjusted to patient's actual temperature (BldV) [Partial pressure] 40 mmHg Low 42-55 [facility] Comment on above: Order Comment: Speci men Type: VENOUS BLOOD SPECIMENOrdering Facility: [facility] Address: [address] [place] [id number] Performed By: #### 2 4344-4 ####[facility] [id number] [place] [address] [place] Glucose [Mass/Vol] 123 mg/dL High 60-105 [facility] Comment on above: Order Comment: Speci men Type: VENOUS BLOOD SPECIMENOrdering Facility: [facility] Address: [address] [place] [address] Performed By: #### 2 4344-4 ####[facility] [id number] [place] [address] [place] HCO3 (Bld) [Moles/Vol] 27 mmol/L Normal 24-28 [facility] Comment on above: Order Comment: Speci men Type: VENOUS BLOOD SPECIMENOrdering Facility: [facility] Address: [address] [place] [address] Performed By: #### 2 4344-4 ####[facility] [id number] [place] [address] [place] Hematocrit (Bld) [Volume fraction] 31.9 % Low 39.0-51.0 [facility] Comment on above: Order Comment: Speci men Type: VENOUS BLOOD SPECIMENOrdering Facility: [facility] Address: [address] [place] [address] Performed By: #### 2 4344-4 ####[facility] [id number] [place] [address] [place] Hemoglobin (Bld) [Mass/Vol] 10.3 g/dL Low 13.0-17.0 [facility] Comment on above: Order Comment: Speci men Type: VENOUS BLOOD SPECIMENOrdering Facility: [facility] Address: [address] [place] [address] Performed By: #### 2 4344-4 ####[facility] [id number] [address] [address] [place] Methemoglobin (Bld) [Mass fraction] 0.7 % Normal 0.0-1.5 [facility] Comment on above: Order Comment: Speci men Type: VENOUS BLOOD SPECIMENOrdering Facility: [facility] Address: [address] [place] [address] Performed By: #### 2 4344-4 ####[facility] [id number] [place] [address] [place] Oxygen (BldV) [Partial pressure] 42 mm[Hg] Normal 35-45 [facility] Comment on above: Order Comment: Speci men Type: VENOUS BLOOD SPECIMENOrdering Facility: [facility] Address: [address] [place] [address] Performed By: #### 2 4344-4 ####[facility] [id number] [place] [address] [place] Oxygen adjusted to patient's actual temperature (BldV) [Partial pressure] 41 mmHg Normal 35-45 [facility] Comment on above: Order Comment: Speci men Type: VENOUS BLOOD SPECIMENOrdering Facility: [facility] Address: [address] [place], [place] [address] Performed By: #### 2 4344-4 ####[facility] [id number] [place] [id number] [place] [place] Oxygen saturation in Venous blood 78 % Normal 60-85 [facility] Comment on above: Order Comment: Speci men Type: VENOUS BLOOD SPECIMENOrdering Facility: [facility] Address: [address] [place], [place] [address] Performed By: #### 2 4344-4 ####[facility] [id number] [place] [id number] [place] Oxyhemoglobin (BldV) [Mass fraction] 77 % Normal 60-85 [facility] Comment on above: Order Comment: Speci men Type: VENOUS BLOOD SPECIMENOrdering Facility: [facility] Address: [address] [place] [address] Performed By: #### 2 4344-4 ####[facility] [id number] [place] [address] [place] pH (BldV) 7.43 [pH] High 7.32-7.42 [facility] Comment on above: Order Comment: Speci men Type: VENOUS BLOOD SPECIMENOrdering Facility: [facility] Address: [address] [place] [address] Performed By: #### 2 4344-4 ####[facility] [id number] [place] [address] [place] pH adjusted to patient's actual temperature (BldV) 7.44 High 7.32-7.42 [facility] Comment on above: Order Comment: Speci men Type: VENOUS BLOOD SPECIMENOrdering Facility: [facility] Address: [address] [place] [address] Performed By: #### 2 4344-4 ####[facility] [id number] [place] [address] [place] Base excess Calc (BldV) [Moles/Vol] 1 mmol/L Normal 0-2 [facility] Comment on above: Order Comment: Speci men Type: VENOUS BLOOD SPECIMENOrdering Facility: [facility] Address: [address] [place] [address] Performed By: #### 2 4344-4 ####[facility] [id number] [place] [address] [place] Calcium.ionized (Bld) [Mass/Vol] 1.20 mmol/L Normal 1.08-1.30 [facility] Comment on above: Order Comment: Speci men Type: VENOUS BLOOD SPECIMENOrdering Facility: [facility] Address: [address] [place] [address] Performed By: #### 2 4344-4 ####[facility] [id number] [place] [address] [place] Calcium.ionized adjusted to pH 7.4 (BldA) [Moles/Vol] 1.21 mmol/L Normal 1.08-1.30 [facility] Comment on above: Order Comment: Speci men Type: VENOUS BLOOD SPECIMENOrdering Facility: [facility] Address: [address] [place] [address] Performed By: #### 2 4344-4 ####[facility] [id number] [place] [address] [place] Carboxyhemoglobin (BldV) [Mass fraction] 1.4 % Normal 0.0-2.0 [facility] Comment on above: Order Comment: Speci men Type: VENOUS BLOOD SPECIMENOrdering Facility: [facility] Address: [address] [place] [address] Result Comment: Carb oxyhemoglobin Reference Range for Smokers: 2.0-8.0% Performed By: #### 2 4344-4 ####[facility] [id number] [place] [address] [place] CO2 (BldV) [Partial pressure] 41 mm[Hg] Low 42-55 [facility] Comment on above: Order Comment: Speci men Type: VENOUS BLOOD SPECIMENOrdering Facility: [facility] Address: [address] [place] [address] Performed By: #### 2 4344-4 ####[facility] [id number] [place] [address] [place] Glucose [Mass/Vol] 124 mg/dL High 60-105 [facility] Comment on above: Order Comment: Speci men Type: VENOUS BLOOD SPECIMENOrdering Facility: [facility] Address: [address] [place] [address] Performed By: #### 2 4344-4 ####[facility] [id number] [place] [address] [place] HCO3 (Bld) [Moles/Vol] 25 mmol/L Normal 24-28 [facility] Comment on above: Order Comment: Speci men Type: VENOUS BLOOD SPECIMENOrdering Facility: [facility] Address: [address] [place] [address] Performed By: #### 2 4344-4 ####[facility] [id number] [place] [address] [place] Hematocrit (Bld) [Volume fraction] 32.9 % Low 39.0-51.0 [facility] Comment on above: Order Comment: Speci men Type: VENOUS BLOOD SPECIMENOrdering Facility: [facility] Address: [address] [place] [address] Performed By: #### 2 4344-4 ####[facility] [id number] [place] [address] [place] Hemoglobin (Bld) [Mass/Vol] 10.7 g/dL Low 13.0-17.0 [facility] Comment on above: Order Comment: Speci men Type: VENOUS BLOOD SPECIMENOrdering Facility: [facility] Address: [address] [place] [address] Performed By: #### 2 4344-4 ####[facility] [id number] [place] [address] [place] Lactate [Moles/Vol] 2.8 mmol/L High 0.5-2.2 [facility] Comment on above: Order Comment: Speci men Type: VENOUS BLOOD SPECIMENOrdering Facility: [facility] Address: [address] [place] [address] Performed By: #### 2 4344-4 ####[facility] [id number] [place] [address] [place] Methemoglobin (Bld) [Mass fraction] 0.8 % Normal 0.0-1.5 [facility] Comment on above: Order Comment: Speci men Type: VENOUS BLOOD SPECIMENOrdering Facility: [facility] Address: [address] [place] [address] Performed By: #### 2 4344-4 ####[facility] [id number] [place] [address] [place] Oxygen (BldV) [Partial pressure] 52 mm[Hg] High 35-45 [facility] Comment on above: Order Comment: Speci men Type: VENOUS BLOOD SPECIMENOrdering Facility: [facility] Address: [address] [place] [address] Performed By: #### 2 4344-4 ####[facility] [id number] [place] [address] [place] Oxygen saturation in Venous blood 87 % High 60-85 [facility] Comment on above: Order Comment: Speci men Type: VENOUS BLOOD SPECIMENOrdering Facility: [facility] Address: [address] [place] [address] Performed By: #### 2 4344-4 ####[facility] [id number] [place] [address] [place] Oxyhemoglobin (BldV) [Mass fraction] 85 % Normal 60-85 [facility] Comment on above: Order Comment: Speci men Type: VENOUS BLOOD SPECIMENOrdering Facility: [facility] Address: [address] [place] [address] Performed By: #### 2 4344-4 ####[facility] [id number] [place] [address] [place] pH (BldV) 7.41 [pH] Normal 7.32-7.42 [facility] Comment on above: Order Comment: Speci men Type: VENOUS BLOOD SPECIMENOrdering Facility: [facility] Address: [address] [place] [address] Performed By: #### 2 4344-4 ####[facility] [id number] [place] [address] [place] Potassium [Moles/Vol] 3.9 mmol/L Normal 3.5-5.0 [facility] Comment on above: Order Comment: Speci men Type: VENOUS BLOOD SPECIMENOrdering Facility: [facility] Address: [address] [place] [address] Performed By: #### 2 4344-4 ####[facility] [id number] [place] [address] [place] Sodium [Moles/Vol] 139 mmol/L Normal 136-144 [facility] Comment on above: Order Comment: Speci men Type: VENOUS BLOOD SPECIMENOrdering Facility: [facility] Address: [address] [place] [address] Performed By: #### 2 4344-4 ####[facility] [id number] [place] [address] [place] Base excess Calc (BldV) [Moles/Vol] 1 mmol/L Normal 0-2 [facility] Comment on above: Order Comment: Speci men Type: VENOUS BLOOD SPECIMENOrdering Facility: [facility] Address: [address] [place], [place] [address] Performed By: #### 2 4344-4 ####[facility] [id number] [place] [address] [place] Calcium.ionized (Bld) [Mass/Vol] 1.18 mmol/L Normal 1.08-1.30 [facility] Comment on above: Order Comment: Speci men Type: VENOUS BLOOD SPECIMENOrdering Facility: [facility] Address: [address] [place], [place] [address] Performed By: #### 2 4344-4 ####[facility] [id number] [place] [address] [place] Calcium.ionized adjusted to pH 7.4 (BldA) [Moles/Vol] 1.19 mmol/L Normal 1.08-1.30 [facility] Comment on above: Order Comment: Speci men Type: VENOUS BLOOD SPECIMENOrdering Facility: [facility] Address: [address] [place] [address] Performed By: #### 2 4344-4 ####[facility] [id number] [place] [address] [place] Carboxyhemoglobin (BldV) [Mass fraction] 1.0 % Normal 0.0-2.0 [facility] Comment on above: Order Comment: Speci men Type: VENOUS BLOOD SPECIMENOrdering Facility: [facility] Address: [address] [place] [address] Result Comment: Carb oxyhemoglobin Reference Range for Smokers: 2.0-8.0% Performed By: #### 2 4344-4 ####[facility] [id number] [place] [address] [place] CO2 (BldV) [Partial pressure] 40 mm[Hg] Low 42-55 [facility] Comment on above: Order Comment: Speci men Type: VENOUS BLOOD SPECIMENOrdering Facility: [facility] Address: [address] [place] [address] Performed By: #### 2 4344-4 ####[facility] [id number] [place] [address] [place] Glucose [Mass/Vol] 147 mg/dL High 60-105 [facility] Comment on above: Order Comment: Speci men Type: VENOUS BLOOD SPECIMENOrdering Facility: [facility] Address: [address] [place] [address] Performed By: #### 2 4344-4 ####[facility] [id number] [place] [address] [place] HCO3 (Bld) [Moles/Vol] 25 mmol/L Normal 24-28 [facility] Comment on above: Order Comment: Speci men Type: VENOUS BLOOD SPECIMENOrdering Facility: [facility] Address: [address] [place] [address] Performed By: #### 2 4344-4 ####[facility] [id number] [place] [address] [place] Hematocrit (Bld) [Volume fraction] 32.8 % Low 39.0-51.0 [facility] Comment on above: Order Comment: Speci men Type: VENOUS BLOOD SPECIMENOrdering Facility: [facility] Address: [address] [place] [address] Performed By: #### 2 4344-4 ####[facility] [id number] [place] [address] [place] Hemoglobin (Bld) [Mass/Vol] 10.6 g/dL Low 13.0-17.0 [facility] Comment on above: Order Comment: Speci men Type: VENOUS BLOOD SPECIMENOrdering Facility: [facility] Address: [address] [place] [address] Performed By: #### 2 4344-4 ####[facility] [id number] [place] [address] [place] Lactate [Moles/Vol] 4.1 mmol/L High 0.5-2.2 [facility] Comment on above: Order Comment: Speci men Type: VENOUS BLOOD SPECIMENOrdering Facility: [facility] Address: [address] [place] [address] Performed By: #### 2 4344-4 ####[facility] [id number] [place] [address] [place] Methemoglobin (Bld) [Mass fraction] 0.7 % Normal 0.0-1.5 [facility] Comment on above: Order Comment: Speci men Type: VENOUS BLOOD SPECIMENOrdering Facility: [facility] Address: [address] [place] [address] Performed By: #### 2 4344-4 ####[facility] [id number] [address] [address] [place] Oxygen (BldV) [Partial pressure] 46 mm[Hg] High 35-45 [facility] Comment on above: Order Comment: Speci men Type: VENOUS BLOOD SPECIMENOrdering Facility: [facility] Address: [address] [place], [place] [address] Performed By: #### 2 4344-4 ####[facility] [id number] [address] [address] [place] Oxygen saturation in Venous blood 81 % Normal 60-85 [facility] Comment on above: Order Comment: Speci men Type: VENOUS BLOOD SPECIMENOrdering Facility: [facility] Address: [address] [place], [place] [address] Performed By: #### 2 4344-4 ####[facility] [id number] [address] [address] [place] Oxyhemoglobin (BldV) [Mass fraction] 80 % Normal 60-85 [facility] Comment on above: Order Comment: Speci men Type: VENOUS BLOOD SPECIMENOrdering Facility: [facility] Address: [address] [place] [address] Performed By: #### 2 4344-4 ####[facility] [id number] [address] [address] [place] pH (BldV) 7.41 [pH] Normal 7.32-7.42 [facility] Comment on above: Order Comment: Speci men Type: VENOUS BLOOD SPECIMENOrdering Facility: [facility] Address: [address] [place] [address] Performed By: #### 2 4344-4 ####[facility] [id number] [address] [address] [place] Base excess Calc (BldV) [Moles/Vol] 1 mmol/L Normal 0-2 [facility] Comment on above: Order Comment: Speci men Type: VENOUS BLOOD SPECIMENOrdering Facility: [facility] Address: [address] [place] [address] Performed By: #### 2 4344-4 ####[facility] [id number] [place] [address] [place] Calcium.ionized adjusted to pH 7.4 (BldA) [Moles/Vol] 1.19 mmol/L Normal 1.08-1.30 [facility] Comment on above: Order Comment: Speci men Type: VENOUS BLOOD SPECIMENOrdering Facility: [facility] Address: [address] [place] [address] Performed By: #### 2 4344-4 ####[facility] [id number] [place] [address] [place] Carboxyhemoglobin (BldV) [Mass fraction] 1.4 % Normal 0.0-2.0 [facility] Comment on above: Order Comment: Speci men Type: VENOUS BLOOD SPECIMENOrdering Facility: [facility] Address: [address] [place] [address] Result Comment: Carb oxyhemoglobin Reference Range for Smokers: 2.0-8.0% Performed By: #### 2 4344-4 ####[facility] [id number] [place] [address] [place] CO2 (BldV) [Partial pressure] 39 mm[Hg] Low 42-55 [facility] Comment on above: Order Comment: Speci men Type: VENOUS BLOOD SPECIMENOrdering Facility: [facility] Address: [address] [place] [address] Performed By: #### 2 4344-4 ####[facility] [id number] [place] [address] [place] HCO3 (Bld) [Moles/Vol] 25 mmol/L Normal 24-28 [facility] Comment on above: Order Comment: Speci men Type: VENOUS BLOOD SPECIMENOrdering Facility: [facility] Address: [address] [place] [address] Performed By: #### 2 4344-4 ####[facility] [id number] [place] [address] [place] Hematocrit (Bld) [Volume fraction] 34.1 % Low 39.0-51.0 [facility] Comment on above: Order Comment: Speci men Type: VENOUS BLOOD SPECIMENOrdering Facility: [facility] Address: [address] [place] [address] Performed By: #### 2 4344-4 ####[facility] [id number] [place] [address] [place] Hemoglobin (Bld) [Mass/Vol] 11.1 g/dL Low 13.0-17.0 [facility] Comment on above: Order Comment: Speci men Type: VENOUS BLOOD SPECIMENOrdering Facility: [facility] Address: [address] [place] [address] Performed By: #### 2 4344-4 ####[facility] [id number] [place] [address] [place] Lactate [Moles/Vol] 5.0 mmol/L High 0.5-2.2 [facility] Comment on above: Order Comment: Speci men Type: VENOUS BLOOD SPECIMENOrdering Facility: [facility] Address: [address] [place] [address] Performed By: #### 2 4344-4 ####[facility] [id number] [place] [address] [place] Methemoglobin (Bld) [Mass fraction] 0.9 % Normal 0.0-1.5 [facility] Comment on above: Order Comment: Speci men Type: VENOUS BLOOD SPECIMENOrdering Facility: [facility] Address: [address] [place] [id number] Performed By: #### 2 4344-4 ####[facility] [id number] [address] [address] [place] Oxygen (BldV) [Partial pressure] 44 mm[Hg] Normal 35-45 [facility] Comment on above: Order Comment: Speci men Type: VENOUS BLOOD SPECIMENOrdering Facility: [facility] Address: [address] [place] [address] Performed By: #### 2 4344-4 ####[facility] [id number] [place] [address] [place] Oxygen saturation in Venous blood 79 % Normal 60-85 [facility] Comment on above: Order Comment: Speci men Type: VENOUS BLOOD SPECIMENOrdering Facility: [facility] Address: [address] [place] [address] Performed By: #### 2 4344-4 ####[facility] [id number] [place] [address] [place] Oxyhemoglobin (BldV) [Mass fraction] 77 % Normal 60-85 [facility] Comment on above: Order Comment: Speci men Type: VENOUS BLOOD SPECIMENOrdering Facility: [facility] Address: [address] [place], [place] [address] Performed By: #### 2 4344-4 ####[facility] [id number] [address] [address] [place] pH (BldV) 7.42 [pH] Normal 7.32-7.42 [facility] Comment on above: Order Comment: Speci men Type: VENOUS BLOOD SPECIMENOrdering Facility: [facility] Address: [address] [place], [place] [address] Performed By: #### 2 4344-4 ####[facility] [id number] [place] [address] [place] Potassium [Moles/Vol] 3.7 mmol/L Normal 3.5-5.0 [facility] Comment on above: Order Comment: Speci men Type: VENOUS BLOOD SPECIMENOrdering Facility: [facility] Address: [address] [place] [address] Performed By: #### 2 4344-4 ####[facility] [id number] [place] [address] [place] Sodium [Moles/Vol] 139 mmol/L Normal 136-144 [facility] Comment on above: Order Comment: Speci men Type: VENOUS BLOOD SPECIMENOrdering Facility: [facility] Address: [address] [place] [address] Performed By: #### 2 4344-4 ####[facility] [id number] [place] [address] [place] BASE DEFICIT, VENOUS -1 mmol/L Normal -2-0 [facility] Comment on above: Order Comment: Speci men Type: VENOUS BLOOD SPECIMENOrdering Facility: [facility] Address: [address] [place] [address] Performed By: #### 2 4344-4 ####[facility] [id number] [place] [address] [place] Calcium.ionized (Bld) [Mass/Vol] 1.19 mmol/L Normal 1.08-1.30 [facility] Comment on above: Order Comment: Speci men Type: VENOUS BLOOD SPECIMENOrdering Facility: [facility] Address: [address] [place] [address] Performed By: #### 2 4344-4 ####[facility] [id number] [place] [address] [place] Calcium.ionized adjusted to pH 7.4 (BldA) [Moles/Vol] 1.18 mmol/L Normal 1.08-1.30 [facility] Comment on above: Order Comment: Speci men Type: VENOUS BLOOD SPECIMENOrdering Facility: [facility] Address: [address] [place] [address] Performed By: #### 2 4344-4 ####[facility] [id number] [address] [address] [place] Carboxyhemoglobin (BldV) [Mass fraction] 0.9 % Normal 0.0-2.0 [facility] Comment on above: Order Comment: Speci men Type: VENOUS BLOOD SPECIMENOrdering Facility: [facility] Address: [address] [place] [address] Result Comment: Carb oxyhemoglobin Reference Range for Smokers: 2.0-8.0% Performed By: #### 2 4344-4 ####[facility] [id number] [place] [address] [place] CO2 (BldV) [Partial pressure] 41 mm[Hg] Low 42-55 [facility] Comment on above: Order Comment: Speci men Type: VENOUS BLOOD SPECIMENOrdering Facility: [facility] Address: [address] [place] [address] Performed By: #### 2 4344-4 ####[facility] [id number] [place] [address] [place] Hematocrit (Bld) [Volume fraction] 35.5 % Low 39.0-51.0 [facility] Comment on above: Order Comment: Speci men Type: VENOUS BLOOD SPECIMENOrdering Facility: [facility] Address: [address] [place] [address] Performed By: #### 2 4344-4 ####[facility] [id number] [place] [address] [place] Lactate [Moles/Vol] 4.7 mmol/L High 0.5-2.2 [facility] Comment on above: Order Comment: Speci men Type: VENOUS BLOOD SPECIMENOrdering Facility: [facility] Address: [address] [place] [address] Performed By: #### 2 4344-4 ####[facility] [id number] [address] [address] [place] Methemoglobin (Bld) [Mass fraction] 1.6 % High 0.0-1.5 [facility] Comment on above: Order Comment: Speci men Type: VENOUS BLOOD SPECIMENOrdering Facility: [facility] Address: [address] [place] [address] Performed By: #### 2 4344-4 ####[facility] [id number] [place] [address] [place] Oxygen (BldV) [Partial pressure] 45 mm[Hg] Normal 35-45 [facility] Comment on above: Order Comment: Speci men Type: VENOUS BLOOD SPECIMENOrdering Facility: [facility] Address: [address] [place] [address] Performed By: #### 2 4344-4 ####[facility] [id number] [address] [address] [place] Oxygen saturation in Venous blood 78 % Normal 60-85 [facility] Comment on above: Order Comment: Speci men Type: VENOUS BLOOD SPECIMENOrdering Facility: [facility] Address: [address] [place], [place] [address] Performed By: #### 2 4344-4 ####[facility] [id number] [address] [address] [place] Oxyhemoglobin (BldV) [Mass fraction] 76 % Normal 60-85 [facility] Comment on above: Order Comment: Speci men Type: VENOUS BLOOD SPECIMENOrdering Facility: [facility] Address: [address] [place], [place] [address] Performed By: #### 2 4344-4 ####[facility] [id number] [address] [address] [place] pH (BldV) 7.38 [pH] Normal 7.32-7.42 [facility] Comment on above: Order Comment: Speci men Type: VENOUS BLOOD SPECIMENOrdering Facility: [facility] Address: [address] [place] [address] Performed By: #### 2 4344-4 ####[facility] [id number] [place] [address] [place] Sodium [Moles/Vol] 140 mmol/L Normal 136-144 [facility] Comment on above: Order Comment: Speci men Type: VENOUS BLOOD SPECIMENOrdering Facility: [facility] Address: [address] [place] [address] Performed By: #### 2 4344-4 ####[facility] [id number] [place] [address] [place] BASE DEFICIT, VENOUS -1 mmol/L Normal -2-0 [facility] Comment on above: Order Comment: Speci men Type: VENOUS BLOOD SPECIMENOrdering Facility: [facility] Address: [address] [place] [address] Performed By: #### 2 4344-4 ####[facility] [id number] [place] [address] [place] Calcium.ionized (Bld) [Mass/Vol] 1.18 mmol/L Normal 1.08-1.30 [facility] Comment on above: Order Comment: Speci men Type: VENOUS BLOOD SPECIMENOrdering Facility: [facility] Address: [address] [place] [address] Performed By: #### 2 4344-4 ####[facility] [id number] [place] [address] [place] Calcium.ionized adjusted to pH 7.4 (BldA) [Moles/Vol] 1.15 mmol/L Normal 1.08-1.30 [facility] Comment on above: Order Comment: Speci men Type: VENOUS BLOOD SPECIMENOrdering Facility: [facility] Address: [address] [place] [address] Performed By: #### 2 4344-4 ####[facility] [id number] [address] [address] [place] Carboxyhemoglobin (BldV) [Mass fraction] 1.3 % Normal 0.0-2.0 [facility] Comment on above: Order Comment: Speci men Type: VENOUS BLOOD SPECIMENOrdering Facility: [facility] Address: [address] [place], [place] [address] Result Comment: Carb oxyhemoglobin Reference Range for Smokers: 2.0-8.0% Performed By: #### 2 4344-4 ####[facility] [id number] [place] [address] [place] CO2 (BldV) [Partial pressure] 46 mm[Hg] Normal 42-55 [facility] Comment on above: Order Comment: Speci men Type: VENOUS BLOOD SPECIMENOrdering Facility: [facility] Address: [address] [place], [place] [address] Performed By: #### 2 4344-4 ####[facility] [id number] [place] [address] [place] Glucose [Mass/Vol] 166 mg/dL High 60-105 [facility] Comment on above: Order Comment: Speci men Type: VENOUS BLOOD SPECIMENOrdering Facility: [facility] Address: [address] [place], [place] [address] Performed By: #### 2 4344-4 ####[facility] [id number] [place] [id number] [place] HCO3 (Bld) [Moles/Vol] 24 mmol/L Normal 24-28 [facility] Comment on above: Order Comment: Speci men Type: VENOUS BLOOD SPECIMENOrdering Facility: [facility] Address: [address] [place], [place] [address] Performed By: #### 2 4344-4 ####[facility] [id number] [place] [address] [place] Hematocrit (Bld) [Volume fraction] 34.3 % Low 39.0-51.0 [facility] Comment on above: Order Comment: Speci men Type: VENOUS BLOOD SPECIMENOrdering Facility: [facility] Address: [address] [place] [address] Performed By: #### 2 4344-4 ####[facility] [id number] [place] [address] [place] Hemoglobin (Bld) [Mass/Vol] 11.1 g/dL Low 13.0-17.0 [facility] Comment on above: Order Comment: Speci men Type: VENOUS BLOOD SPECIMENOrdering Facility: [facility] Address: [address] [place] [address] Performed By: #### 2 4344-4 ####[facility] [id number] [place] [address] [place] Lactate [Moles/Vol] 5.1 mmol/L High 0.5-2.2 [facility] Comment on above: Order Comment: Speci men Type: VENOUS BLOOD SPECIMENOrdering Facility: [facility] Address: [address] [place] [address] Performed By: #### 2 4344-4 ####[facility] [id number] [place] [address] [place] Oxygen (BldV) [Partial pressure] 45 mm[Hg] Normal 35-45 [facility] Comment on above: Order Comment: Speci men Type: VENOUS BLOOD SPECIMENOrdering Facility: [facility] Address: [address] [place] [address] Performed By: #### 2 4344-4 ####[facility] [id number] [place] [address] [place] Oxygen saturation in Venous blood 78 % Normal 60-85 [facility] Comment on above: Order Comment: Speci men Type: VENOUS BLOOD SPECIMENOrdering Facility: [facility] Address: [address] [place] [address] Performed By: #### 2 4344-4 ####[facility] [id number] [address] [address] [place] Oxyhemoglobin (BldV) [Mass fraction] 76 % Normal 60-85 [facility] Comment on above: Order Comment: Speci men Type: VENOUS BLOOD SPECIMENOrdering Facility: [facility] Address: [address] [place] [address] Performed By: #### 2 4344-4 ####[facility] [id number] [address] [address] [place] pH (BldV) 7.34 [pH] Normal 7.32-7.42 [facility] Comment on above: Order Comment: Speci men Type: VENOUS BLOOD SPECIMENOrdering Facility: [facility] Address: [address] [place], [place] [address] Performed By: #### 2 4344-4 ####[facility] [id number] [place] [address] [place] BASE DEFICIT, VENOUS -2 mmol/L Normal -2-0 [facility] Comment on above: Order Comment: Speci men Type: VENOUS BLOOD SPECIMENOrdering Facility: [facility] Address: [address] [place] [address] Performed By: #### 2 4344-4 ####[facility] [id number] [place] [address] [place] Calcium.ionized (Bld) [Mass/Vol] 1.14 mmol/L Normal 1.08-1.30 [facility] Comment on above: Order Comment: Speci men Type: VENOUS BLOOD SPECIMENOrdering Facility: [facility] Address: [address] [place] [address] Performed By: #### 2 4344-4 ####[facility] [id number] [place] [address] [place] Calcium.ionized adjusted to pH 7.4 (BldA) [Moles/Vol] 1.12 mmol/L Normal 1.08-1.30 [facility] Comment on above: Order Comment: Speci men Type: VENOUS BLOOD SPECIMENOrdering Facility: [facility] Address: [address] [place] [address] Performed By: #### 2 4344-4 ####[facility] [id number] [place] [address] [place] Carboxyhemoglobin (BldV) [Mass fraction] 1.5 % Normal 0.0-2.0 [facility] Comment on above: Order Comment: Speci men Type: VENOUS BLOOD SPECIMENOrdering Facility: [facility] Address: [address] [place] [address] Result Comment: Carb oxyhemoglobin Reference Range for Smokers: 2.0-8.0% Performed By: #### 2 4344-4 ####[facility] [id number] [place] [address] [place] CO2 (BldV) [Partial pressure] 39 mm[Hg] Low 42-55 [facility] Comment on above: Order Comment: Speci men Type: VENOUS BLOOD SPECIMENOrdering Facility: [facility] Address: [address] [place] [address] Performed By: #### 2 4344-4 ####[facility] [id number] [place] [address] [place] Glucose [Mass/Vol] 147 mg/dL High 60-105 [facility] Comment on above: Order Comment: Speci men Type: VENOUS BLOOD SPECIMENOrdering Facility: [facility] Address: [address] [place] [address] Performed By: #### 2 4344-4 ####[facility] [id number] [place] [address] [place] HCO3 (Bld) [Moles/Vol] 22 mmol/L Low 24-28 [facility] Comment on above: Order Comment: Speci men Type: VENOUS BLOOD SPECIMENOrdering Facility: [facility] Address: [address] [place] [address] Performed By: #### 2 4344-4 ####[facility] [id number] [place] [address] [place] Hematocrit (Bld) [Volume fraction] 32.9 % Low 39.0-51.0 [facility] Comment on above: Order Comment: Speci men Type: VENOUS BLOOD SPECIMENOrdering Facility: [facility] Address: [address] [place] [address] Performed By: #### 2 4344-4 ####[facility] [id number] [place] [address] [place] Hemoglobin (Bld) [Mass/Vol] 10.6 g/dL Low 13.0-17.0 [facility] Comment on above: Order Comment: Speci men Type: VENOUS BLOOD SPECIMENOrdering Facility: [facility] Address: [address] [place] [address] Performed By: #### 2 4344-4 ####[facility] [id number] [place] [address] [place] Lactate [Moles/Vol] 5.5 mmol/L High 0.5-2.2 [facility] Comment on above: Order Comment: Speci men Type: VENOUS BLOOD SPECIMENOrdering Facility: [facility] Address: [address] [place] [address] Performed By: #### 2 4344-4 ####[facility] [id number] [place] [address] [place] Methemoglobin (Bld) [Mass fraction] 0.8 % Normal 0.0-1.5 [facility] Comment on above: Order Comment: Speci men Type: VENOUS BLOOD SPECIMENOrdering Facility: [facility] Address: [address] [place] [place] [address] Performed By: #### 2 4344-4 ####[facility] [id number] [address] [address] [place] Oxygen (BldV) [Partial pressure] 44 mm[Hg] Normal 35-45 [facility] Comment on above: Order Comment: Speci men Type: VENOUS BLOOD SPECIMENOrdering Facility: [facility] Address: [address] [place] [address] Performed By: #### 2 4344-4 ####[facility] [id number] [address] [address] [place] Oxygen saturation in Venous blood 79 % Normal 60-85 [facility] Comment on above: Order Comment: Speci men Type: VENOUS BLOOD SPECIMENOrdering Facility: [facility] Address: [address] [place] [address] Performed By: #### 2 4344-4 ####[facility] [id number] [place] [address] [place] Oxyhemoglobin (BldV) [Mass fraction] 78 % Normal 60-85 [facility] Comment on above: Order Comment: Speci men Type: VENOUS BLOOD SPECIMENOrdering Facility: [facility] Address: [address] [place] [address] Performed By: #### 2 4344-4 ####[facility] [id number] [place] [address] [place] pH (BldV) 7.37 [pH] Normal 7.32-7.42 [facility] Comment on above: Order Comment: Speci men Type: VENOUS BLOOD SPECIMENOrdering Facility: [facility] Address: [address] [place] [address] Performed By: #### 2 4344-4 ####[facility] [id number] [place] [address] [place] Potassium [Moles/Vol] 4.2 mmol/L Normal 3.5-5.0 [facility] Comment on above: Order Comment: Speci men Type: VENOUS BLOOD SPECIMENOrdering Facility: [facility] Address: [address] [place] [address] Performed By: #### 2 4344-4 ####[facility] [id number] [place] [address] [place] Sodium [Moles/Vol] 137 mmol/L Normal 136-144 [facility] Comment on above: Order Comment: Speci men Type: VENOUS BLOOD SPECIMENOrdering Facility: [facility] Address: [address] [place] [address] Performed By: #### 2 4344-4 ####[facility] [id number] [place] [address] [place] BASE DEFICIT, VENOUS -1 mmol/L Normal -2-0 [facility] Comment on above: Order Comment: Speci men Type: VENOUS BLOOD SPECIMENOrdering Facility: [facility] Address: [address] [place] [address] Performed By: #### 2 4344-4 ####[facility] [id number] [place] [address] [place] Calcium.ionized adjusted to pH 7.4 (BldA) [Moles/Vol] 1.15 mmol/L Normal 1.08-1.30 [facility] Comment on above: Order Comment: Speci men Type: VENOUS BLOOD SPECIMENOrdering Facility: [facility] Address: [address] [place] [address] Performed By: #### 2 4344-4 ####[facility] [id number] [place] [address] [place] Carboxyhemoglobin (BldV) [Mass fraction] 1.3 % Normal 0.0-2.0 [facility] Comment on above: Order Comment: Speci men Type: VENOUS BLOOD SPECIMENOrdering Facility: [facility] Address: [address] [place] [address] Result Comment: Carb oxyhemoglobin Reference Range for Smokers: 2.0-8.0% Performed By: #### 2 4344-4 ####[facility] [id number] [place] [address] [place] CO2 (BldV) [Partial pressure] 42 mm[Hg] Normal 42-55 [facility] Comment on above: Order Comment: Speci men Type: VENOUS BLOOD SPECIMENOrdering Facility: [facility] Address: [address] [place] [address] Performed By: #### 2 4344-4 ####[facility] [id number] [address] [place] CO2 adjusted to patient's actual temperature (BldV) [Partial pressure] 42 mmHg Normal 42-55 [facility] Comment on above: Order Comment: Speci men Type: VENOUS BLOOD SPECIMENOrdering Facility: [facility] Address: [address] [place] [address] Performed By: #### 2 4344-4 ####[facility] [id number] [place] [address] [place] Glucose [Mass/Vol] 136 mg/dL High 60-105 [facility] Comment on above: Order Comment: Speci men Type: VENOUS BLOOD SPECIMENOrdering Facility: [facility] Address: [address] [place] [address] Performed By: #### 2 4344-4 ####[facility] [id number] [place] [address] [place] HCO3 (Bld) [Moles/Vol] 24 mmol/L Normal 24-28 [facility] Comment on above: Order Comment: Speci men Type: VENOUS BLOOD SPECIMENOrdering Facility: [facility] Address: [address] [place] [address] Performed By: #### 2 4344-4 ####[facility] [id number] [place] [address] [place] Hematocrit (Bld) [Volume fraction] 34.5 % Low 39.0-51.0 [facility] Comment on above: Order Comment: Speci men Type: VENOUS BLOOD SPECIMENOrdering Facility: [facility] Address: [address] [place] [address] Performed By: #### 2 4344-4 ####[facility] [id number] [place] [address] [place] Hemoglobin (Bld) [Mass/Vol] 11.2 g/dL Low 13.0-17.0 [facility] Comment on above: Order Comment: Speci men Type: VENOUS BLOOD SPECIMENOrdering Facility: [facility] Address: [address] [place] [address] Performed By: #### 2 4344-4 ####[facility] [id number] [place] [address] [place] Lactate [Moles/Vol] 4.9 mmol/L High 0.5-2.2 [facility] Comment on above: Order Comment: Speci men Type: VENOUS BLOOD SPECIMENOrdering Facility: [facility] Address: [address] [place] [address] Performed By: #### 2 4344-4 ####[facility] [id number] [place] [address] [place] Methemoglobin (Bld) [Mass fraction] 1.3 % Normal 0.0-1.5 [facility] Comment on above: Order Comment: Speci men Type: VENOUS BLOOD SPECIMENOrdering Facility: [facility] Address: [address] [place] [address] Performed By: #### 2 4344-4 ####[facility] [id number] [address] [address] [place] Oxygen (BldV) [Partial pressure] 43 mm[Hg] Normal 35-45 [facility] Comment on above: Order Comment: Speci men Type: VENOUS BLOOD SPECIMENOrdering Facility: [facility] Address: [address] [place] [address] Performed By: #### 2 4344-4 ####[facility] [id number] [place] [address] [place] Oxygen adjusted to patient's actual temperature (BldV) [Partial pressure] 44 mmHg Normal 35-45 [facility] Comment on above: Order Comment: Speci men Type: VENOUS BLOOD SPECIMENOrdering Facility: [facility] Address: [address] [place] [address] Performed By: #### 2 4344-4 ####[facility] [id number] [place] [address] [place] Oxygen saturation in Venous blood 79 % Normal 60-85 [facility] Comment on above: Order Comment: Speci men Type: VENOUS BLOOD SPECIMENOrdering Facility: [facility] Address: [address] [place] [address] Performed By: #### 2 4344-4 ####[facility] [id number] [place] [id number] [place] Oxyhemoglobin (BldV) [Mass fraction] 77 % Normal 60-85 [facility] Comment on above: Order Comment: Speci men Type: VENOUS BLOOD SPECIMENOrdering Facility: [facility] Address: [address] [place], [place] [address] Performed By: #### 2 4344-4 ####[facility] [id number] [address] [address] [place] pH (BldV) 7.38 [pH] Normal 7.32-7.42 [facility] Comment on above: Order Comment: Speci men Type: VENOUS BLOOD SPECIMENOrdering Facility: [facility] Address: [address] [place] [address] Performed By: #### 2 4344-4 ####[facility] [id number] [place] [address] [place] pH adjusted to patient's actual temperature (BldV) 7.37 Normal 7.32-7.42 [facility] Comment on above: Order Comment: Speci men Type: VENOUS BLOOD SPECIMENOrdering Facility: [facility] Address: [address] [place] [address] Performed By: #### 2 4344-4 ####[facility] [id number] [place] [address] [place] Potassium [Moles/Vol] 4.3 mmol/L Normal 3.5-5.0 [facility] Comment on above: Order Comment: Speci men Type: VENOUS BLOOD SPECIMENOrdering Facility: [facility] Address: [address] [place] [address] Performed By: #### 2 4344-4 ####[facility] [id number] [place] [address] [place] BASE DEFICIT, VENOUS -1 mmol/L Normal -2-0 [facility] Comment on above: Order Comment: Speci men Type: VENOUS BLOOD SPECIMENOrdering Facility: [facility] Address: [address] [place] [address] Performed By: #### 2 4344-4 ####[facility] [id number] [place] [address] [place] Calcium.ionized (Bld) [Mass/Vol] 1.18 mmol/L Normal 1.08-1.30 [facility] Comment on above: Order Comment: Speci men Type: VENOUS BLOOD SPECIMENOrdering Facility: [facility] Address: [address] [place] [address] Performed By: #### 2 4344-4 ####[facility] [id number] [place] [address] [place] Calcium.ionized adjusted to pH 7.4 (BldA) [Moles/Vol] 1.16 mmol/L Normal 1.08-1.30 [facility] Comment on above: Order Comment: Speci men Type: VENOUS BLOOD SPECIMENOrdering Facility: [facility] Address: [address] [place] [address] Performed By: #### 2 4344-4 ####[facility] [id number] [place] [address] [place] Carboxyhemoglobin (BldV) [Mass fraction] 1.2 % Normal 0.0-2.0 [facility] Comment on above: Order Comment: Speci men Type: VENOUS BLOOD SPECIMENOrdering Facility: [facility] Address: [address] [place] [address] Result Comment: Carb oxyhemoglobin Reference Range for Smokers: 2.0-8.0% Performed By: #### 2 4344-4 ####[facility] [id number] [place] [address] [place] CO2 (BldV) [Partial pressure] 42 mm[Hg] Normal 42-55 [facility] Comment on above: Order Comment: Speci men Type: VENOUS BLOOD SPECIMENOrdering Facility: [facility] Address: [address] [place] [address] Performed By: #### 2 4344-4 ####[facility] [id number] [place] [address] [place] CO2 adjusted to patient's actual temperature (BldV) [Partial pressure] 43 mmHg Normal 42-55 [facility] Comment on above: Order Comment: Speci men Type: VENOUS BLOOD SPECIMENOrdering Facility: [facility] Address: [address] [place] [address] Performed By: #### 2 4344-4 ####[facility] [id number] [place] [address] [place] Glucose [Mass/Vol] 129 mg/dL High 60-105 [facility] Comment on above: Order Comment: Speci men Type: VENOUS BLOOD SPECIMENOrdering Facility: [facility] Address: [address] [place] [address] Performed By: #### 2 4344-4 ####[facility] [id number] [place] [address] [place] HCO3 (Bld) [Moles/Vol] 24 mmol/L Normal 24-28 [facility] Comment on above: Order Comment: Speci men Type: VENOUS BLOOD SPECIMENOrdering Facility: [facility] Address: [address] [place] [address] Performed By: #### 2 4344-4 ####[facility] [id number] [place] [address] [place] Hematocrit (Bld) [Volume fraction] 34.8 % Low 39.0-51.0 [facility] Comment on above: Order Comment: Speci men Type: VENOUS BLOOD SPECIMENOrdering Facility: [facility] Address: [address] [place] [address] Performed By: #### 2 4344-4 ####[facility] [id number] [place] [address] [place] Hemoglobin (Bld) [Mass/Vol] 11.3 g/dL Low 13.0-17.0 [facility] Comment on above: Order Comment: Speci men Type: VENOUS BLOOD SPECIMENOrdering Facility: [facility] Address: [address] [place] [address] Performed By: #### 2 4344-4 ####[facility] [id number] [place] [address] [place] Lactate [Moles/Vol] 4.1 mmol/L High 0.5-2.2 [facility] Comment on above: Order Comment: Speci men Type: VENOUS BLOOD SPECIMENOrdering Facility: [facility] Address: [address] [place] [address] Performed By: #### 2 4344-4 ####[facility] [id number] [place] [address] [place] Methemoglobin (Bld) [Mass fraction] 0.8 % Normal 0.0-1.5 [facility] Comment on above: Order Comment: Speci men Type: VENOUS BLOOD SPECIMENOrdering Facility: [facility] Address: [address] [place] [address] Performed By: #### 2 4344-4 ####[facility] [id number] [place] [address] [place] Oxygen (BldV) [Partial pressure] 53 mm[Hg] High 35-45 [facility] Comment on above: Order Comment: Speci men Type: VENOUS BLOOD SPECIMENOrdering Facility: [facility] Address: [address] [place] [address] Performed By: #### 2 4344-4 ####[facility] [id number] [place] [address] [place] Oxygen adjusted to patient's actual temperature (BldV) [Partial pressure] 55 mmHg High 35-45 [facility] Comment on above: Order Comment: Speci men Type: VENOUS BLOOD SPECIMENOrdering Facility: [facility] Address: [address] [place] [address] Performed By: #### 2 4344-4 ####[facility] [id number] [place] [address] [place] Oxygen saturation in Venous blood 87 % High 60-85 [facility] Comment on above: Order Comment: Speci men Type: VENOUS BLOOD SPECIMENOrdering Facility: [facility] Address: [address] [place] [id number] Performed By: #### 2 4344-4 ####[facility] [id number] [place] [address] [place] Oxyhemoglobin (BldV) [Mass fraction] 85 % Normal 60-85 [facility] Comment on above: Order Comment: Speci men Type: VENOUS BLOOD SPECIMENOrdering Facility: [facility] Address: [address] [place] [address] Performed By: #### 2 4344-4 ####[facility] [id number] [place] [address] [place] pH (BldV) 7.37 [pH] Normal 7.32-7.42 [facility] Comment on above: Order Comment: Speci men Type: VENOUS BLOOD SPECIMENOrdering Facility: [facility] Address: [address] [place] [address] Performed By: #### 2 4344-4 ####[facility] [id number] [place] [address] [place] pH adjusted to patient's actual temperature (BldV) 7.37 Normal 7.32-7.42 [facility] Comment on above: Order Comment: Speci men Type: VENOUS BLOOD SPECIMENOrdering Facility: [facility] Address: [address] [place], [place] [address] Performed By: #### 2 4344-4 ####[facility] [id number] [place] [id number] [place] Potassium [Moles/Vol] 4.6 mmol/L Normal 3.5-5.0 [facility] Comment on above: Order Comment: Speci men Type: VENOUS BLOOD SPECIMENOrdering Facility: [facility] Address: [address] [place], [place] [address] Performed By: #### 2 4344-4 ####[facility] [id number] [place] [address] [place] Base excess Calc (BldV) [Moles/Vol] 0 mmol/L Normal 0-2 [facility] Comment on above: Order Comment: Speci men Type: VENOUS BLOOD SPECIMENOrdering Facility: [facility] Address: [address] [place] [address] Performed By: #### 2 4344-4 ####[facility] [id number] [place] [address] [place] Calcium.ionized (Bld) [Mass/Vol] 1.20 mmol/L Normal 1.08-1.30 [facility] Comment on above: Order Comment: Speci men Type: VENOUS BLOOD SPECIMENOrdering Facility: [facility] Address: [address] [place] [address] Performed By: #### 2 4344-4 ####[facility] [id number] [place] [address] [place] Calcium.ionized adjusted to pH 7.4 (BldA) [Moles/Vol] 1.17 mmol/L Normal 1.08-1.30 [facility] Comment on above: Order Comment: Speci men Type: VENOUS BLOOD SPECIMENOrdering Facility: [facility] Address: [address] [place] [address] Performed By: #### 2 4344-4 ####[facility] [id number] [place] [address] [place] Carboxyhemoglobin (BldV) [Mass fraction] 1.1 % Normal 0.0-2.0 [facility] Comment on above: Order Comment: Speci men Type: VENOUS BLOOD SPECIMENOrdering Facility: [facility] Address: [address] [place] [address] Result Comment: Carb oxyhemoglobin Reference Range for Smokers: 2.0-8.0% Performed By: #### 2 4344-4 ####[facility] [id number] [place] [address] [place] CO2 (BldV) [Partial pressure] 45 mm[Hg] Normal 42-55 [facility] Comment on above: Order Comment: Speci men Type: VENOUS BLOOD SPECIMENOrdering Facility: [facility] Address: [address] [place] [address] Performed By: #### 2 4344-4 ####[facility] [id number] [place] [address] [place] CO2 adjusted to patient's actual temperature (BldV) [Partial pressure] 48 mmHg Normal 42-55 [facility] Comment on above: Order Comment: Speci men Type: VENOUS BLOOD SPECIMENOrdering Facility: [facility] Address: [address] [place] [address] Performed By: #### 2 4344-4 ####[facility] [id number] [place] [address] [place] Glucose [Mass/Vol] 137 mg/dL High 60-105 [facility] Comment on above: Order Comment: Speci men Type: VENOUS BLOOD SPECIMENOrdering Facility: [facility] Address: [address] [place] [address] Performed By: #### 2 4344-4 ####[facility] [id number] [place] [address] [place] HCO3 (Bld) [Moles/Vol] 25 mmol/L Normal 24-28 [facility] Comment on above: Order Comment: Speci men Type: VENOUS BLOOD SPECIMENOrdering Facility: [facility] Address: [address] [place] [address] Performed By: #### 2 4344-4 ####[facility] [id number] [place] [address] [place] Hematocrit (Bld) [Volume fraction] 36.1 % Low 39.0-51.0 [facility] Comment on above: Order Comment: Speci men Type: VENOUS BLOOD SPECIMENOrdering Facility: [facility] Address: [address] [place] [address] Performed By: #### 2 4344-4 ####[facility] [id number] [place] [address] [place] Hemoglobin (Bld) [Mass/Vol] 11.7 g/dL Low 13.0-17.0 [facility] Comment on above: Order Comment: Speci men Type: VENOUS BLOOD SPECIMENOrdering Facility: [facility] Address: [address] [place] [address] Performed By: #### 2 4344-4 ####[facility] [id number] [place] [address] [place] Methemoglobin (Bld) [Mass fraction] 0.7 % Normal 0.0-1.5 [facility] Comment on above: Order Comment: Speci men Type: VENOUS BLOOD SPECIMENOrdering Facility: [facility] Address: [address] [place] [address] Performed By: #### 2 4344-4 ####[facility] [id number] [place] [address] [place] Oxygen (BldV) [Partial pressure] 49 mm[Hg] High 35-45 [facility] Comment on above: Order Comment: Speci men Type: VENOUS BLOOD SPECIMENOrdering Facility: [facility] Address: [address] [place] [address] Performed By: #### 2 4344-4 ####[facility] [id number] [place] [address] [place] Oxygen adjusted to patient's actual temperature (BldV) [Partial pressure] 54 mmHg High 35-45 [facility] Comment on above: Order Comment: Speci men Type: VENOUS BLOOD SPECIMENOrdering Facility: [facility] Address: [address] [place], [place] [address] Performed By: #### 2 4344-4 ####[facility] [id number] [address] [address] [place] Oxygen saturation in Venous blood 84 % Normal 60-85 [facility] Comment on above: Order Comment: Speci men Type: VENOUS BLOOD SPECIMENOrdering Facility: [facility] Address: [address] [place], [place] [address] Performed By: #### 2 4344-4 ####[facility] [id number] [place] [address] [place] Oxyhemoglobin (BldV) [Mass fraction] 82 % Normal 60-85 [facility] Comment on above: Order Comment: Speci men Type: VENOUS BLOOD SPECIMENOrdering Facility: [facility] Address: [address] [place] [address] Performed By: #### 2 4344-4 ####[facility] [id number] [place] [address] [place] pH (BldV) 7.36 [pH] Normal 7.32-7.42 [facility] Comment on above: Order Comment: Speci men Type: VENOUS BLOOD SPECIMENOrdering Facility: [facility] Address: [address] [place] [address] Performed By: #### 2 4344-4 ####[facility] [id number] [place] [address] [place] pH adjusted to patient's actual temperature (BldV) 7.34 Normal 7.32-7.42 [facility] Comment on above: Order Comment: Speci men Type: VENOUS BLOOD SPECIMENOrdering Facility: [facility] Address: [address] [place], [place] [address] Performed By: #### 2 4344-4 ####[facility] [id number] [place] [id number] [place] Potassium [Moles/Vol] 4.7 mmol/L Normal 3.5-5.0 [facility] Comment on above: Order Comment: Speci men Type: VENOUS BLOOD SPECIMENOrdering Facility: [facility] Address: [address] [place], [place] [address] Performed By: #### 2 4344-4 ####[facility] [id number] [address] [address] [place] SET VENTILATOR RESPIRATORY RATE (BPM) 34 BPM Normal [facility] Comment on above: Order Comment: Speci men Type: VENOUS BLOOD SPECIMENOrdering Facility: [facility] Address: [address] [place] [address] Performed By: #### 2 4344-4 ####[facility] [id number] [place] [address] [place] Sodium [Moles/Vol] 139 mmol/L Normal 136-144 [facility] Comment on above: Order Comment: Speci men Type: VENOUS BLOOD SPECIMENOrdering Facility: [facility] Address: [address] [place] [address] Performed By: #### 2 4344-4 ####[facility] [id number] [place] [address] [place] HIGH SENSITIVITY TROPONIN To n 01-24-2024 Troponin T.cardiac High sensitivity method [Mass/Vol] 3237 ng/L High <12 [facility] Comment on above: Order Comment: Speci men Type: BLOOD SPECIMENOrdering Facility: [facility] Address: [address] [place] [address] Performed By: #### 2 4323-8, HSTNT ####[facility] [id number] [place] [id number] [place] NUTRITIONon 01-24-2024 NUTRITION Normal [facility] TYPE + SCREENon 01-24-2024 ABO O Normal [facility] Comment on above: Order Comment: Speci men Type: BLOOD SPECIMENOrdering Facility: [facility] Address: [address] [place] [address] Performed By: #### T SCR ####[facility]ANKCLIA [id number] [place] [id number] [place] Rh Nom (Bld) Positive Normal [facility] Comment on above: Order Comment: Speci men Type: BLOOD SPECIMENOrdering Facility: [facility] Address: [address] [place] [address] Performed By: #### T SCR ####[facility]LO[facility] BANKCLIA [id number] [address] [facility] TYPE AND SCREEN EXPIRATION 01/27/2024 23:59 Normal [facility] Comment on above: Order Comment: Speci men Type: BLOOD SPECIMENOrdering Facility: [facility] Address: [address] [place] [address] Performed By: #### T SCR ####[facility] BLOOD BANKIA [id number] [place] [address] [place] URINALYSIS, REFLEX MICROSCOP ICon 01-24-2024 Bacteria LM.HPF (Urine sed) [#/Area] Negative Normal Negative [facility] Comment on above: Order Comment: Speci men Type: URINE SPECIMENOrdering Facility: [facility] Address: [address] [place] [address] Performed By: #### L [id number] ####[facility] [id number] [place] [address] [place] Bilirubin Ql (U) Negative Normal Negative [facility] Comment on above: Order Comment: Speci men Type: URINE SPECIMENOrdering Facility: [facility] Address: [address] [place] [address] Performed By: #### L [id number] ####[facility] [id number] [place] [address] [place] Clarity (Unsp spec) Turbid Abnormal Clear [facility] Comment on above: Order Comment: Speci men Type: URINE SPECIMENOrdering Facility: [facility] Address: [address] [place] [address] Performed By: #### L [id number] ####[facility] [id number] [place] [address] [place] Color (U) Dark Yellow Abnormal Yellow [facility] Comment on above: Order Comment: Speci men Type: URINE SPECIMENOrdering Facility: [facility] Address: [address] [place] [address] Performed By: #### L [id number] ####[facility] [id number] [place] [address] [place] Epithelial cells LM.HPF (Urine sed) [#/Area] None Seen Normal [facility] Comment on above: Order Comment: Speci men Type: URINE SPECIMENOrdering Facility: [facility] Address: [address] [place] [address] Result Comment: Few Performed By: #### L [id number] ####[facility] [id number] [place] [address] [place] Glucose Test strip (U) [Mass/Vol] Negative Normal Negative [facility] Comment on above: Order Comment: Speci men Type: URINE SPECIMENOrdering Facility: [facility] Address: [address] [place] [address] Performed By: #### L [id number] ####[facility] [id number] [place] [address] [place] Granular casts (Urine sed) [#/Area] 1-3 /LPF Abnormal 0 /LPF [facility] Comment on above: Order Comment: Speci men Type: URINE SPECIMENOrdering Facility: [facility] Address: [address] [place] [address] Performed By: #### L [id number] ####[facility] [id number] [place] [address] [place] Hemoglobin Ql (U) Negative Normal Negative [facility] Comment on above: Order Comment: Speci men Type: URINE SPECIMENOrdering Facility: [facility] Address: [address] [place] [address] Performed By: #### L [id number] ####[facility] [id number] [place] [id number] [place] Hyaline casts (Urine sed) [#/Area] 4-10 /LPF Abnormal 0 /LPF [facility] Comment on above: Order Comment: Speci men Type: URINE SPECIMENOrdering Facility: [facility] Address: [address] [place] [address] Performed By: #### L [id number] ####[facility] [id number] [place] [address] [place] Ketones Ql (U) Negative Normal Negative [facility] Comment on above: Order Comment: Speci men Type: URINE SPECIMENOrdering Facility: [facility] Address: [address] [place] [address] Performed By: #### L [id number] ####[facility] [id number] [place] [address] [place] Leukocyte esterase Test strip Ql (U) Negative Normal Negative [facility] Comment on above: Order Comment: Speci men Type: URINE SPECIMENOrdering Facility: [facility] Address: [address] [place] [address] Performed By: #### L [id number] ####[facility] [id number] [place] [address] [place] Nitrite Ql (U) Negative Normal Negative [facility] Comment on above: Order Comment: Speci men Type: URINE SPECIMENOrdering Facility: [facility] Address: [address] [place] [address] Performed By: #### L [id number] ####[facility] [id number] [place] [id number] [place] pH (U) 5.5 [pH] Normal <8.5 [facility] Comment on above: Order Comment: Speci men Type: URINE SPECIMENOrdering Facility: [facility] Address: [address] [place] [address] Performed By: #### L [id number] ####[facility] [id number] [place] [address] [place] Protein (U) [Mass/Vol] 1+ Abnormal Negative [facility] Comment on above: Order Comment: Speci men Type: URINE SPECIMENOrdering Facility: [facility] Address: [address] [place] [address] Performed By: #### L [id number] ####[facility] [id number] [place] [address] [place] RBC LM.HPF (Urine sed) [#/Area] 0-2 /HPF Normal 0-2 /HPF [facility] Comment on above: Order Comment: Speci men Type: URINE SPECIMENOrdering Facility: [facility] Address: [address] [place] [address] Performed By: #### L [id number] ####[facility] [id number] [place] [address] [place] Specific gravity (U) [Rel density] 1.041 High 1.005-1.030 [facility] Comment on above: Order Comment: Speci men Type: URINE SPECIMENOrdering Facility: [facility] Address: [address] [place] [address] Performed By: #### L [id number] ####[facility] [id number] [place] [address] [place] Urobilinogen Ql (U) 0.2 EU/dL Normal 0.2-1.0 EU/dL [facility] Comment on above: Order Comment: Speci men Type: URINE SPECIMENOrdering Facility: [facility] Address: [address] [place] [address] Performed By: #### L [id number] ####[facility] [id number] [place] [address] [place] WBC LM.HPF (Urine sed) [#/Area] 0-5 /HPF Normal 0-5 /HPF [facility] Comment on above: Order Comment: Speci men Type: URINE SPECIMENOrdering Facility: [facility] Address: [address] [place] [address] Performed By: #### L [id number] ####[facility] [id number] [place] [address] [place] XR CHEST 1V FRONTAL PORTon 1 XR CHEST 1V FRONTAL PORT Normal [facility] ANES POSTPROC EVALon 024 ANES POSTPROC EVAL Normal [facility] ANES PRE-OPon 01-23-2024 ANES PRE-OP Normal [facility] ARTERIAL BLOOD GASESon 01-22 Base excess Calc (Bld) [Moles/Vol] 0 mmol/L Normal 0-2 [facility] Comment on above: Order Comment: Speci men Type: ARTERIAL BLOOD SPECIMENOrdering Facility: [facility] Address: [address] [place] [address] Performed By: #### A LLBG ####[facility] [id number] [place] [address] [place] Body temperature 102.38 [degF] Normal [facility] Comment on above: Order Comment: Speci men Type: ARTERIAL BLOOD SPECIMENOrdering Facility: [facility] Address: [address] [place] [address] Performed By: #### A LLBG ####[facility] [id number] [place] [address] [place] Order Comment: Speci men Type: VENOUS BLOOD SPECIMENOrdering Facility: [facility] Address: [address] [place] [address] Performed By: #### 2 4344-4 ####[facility] [id number] [place] [address] [place] Calcium.ionized (Bld) [Mass/Vol] 1.20 mmol/L Normal 1.08-1.30 [facility] Comment on above: Order Comment: Speci men Type: ARTERIAL BLOOD SPECIMENOrdering Facility: [facility] Address: [address] [place] [address] Performed By: #### A LLBG ####[facility] [id number] [place] [address] [place] Calcium.ionized adjusted to pH 7.4 (BldA) [Moles/Vol] 1.21 mmol/L Normal 1.08-1.30 [facility] Comment on above: Order Comment: Speci men Type: ARTERIAL BLOOD SPECIMENOrdering Facility: [facility] Address: [address] [place] [address] Performed By: #### A LLBG ####[facility] [id number] [place] [address] [place] Carboxyhemoglobin (BldA) [Mass fraction] 1.6 % Normal 0.0-2.0 [facility] Comment on above: Order Comment: Speci men Type: ARTERIAL BLOOD SPECIMENOrdering Facility: [facility] Address: [address] [place] [address] Result Comment: Carb oxyhemoglobin Reference Range for Smokers: 2.0-8.0% Performed By: #### A LLBG ####[facility] [id number] [place] [address] [place] CO2 (Bld) [Partial pressure] 37 mm Hg Normal 36-46 [facility] Comment on above: Order Comment: Speci men Type: ARTERIAL BLOOD SPECIMENOrdering Facility: [facility] Address: [address] [place] [address] Performed By: #### A LLBG ####[facility] [id number] [place] [address] [place] CO2 adjusted to patient's actual temperature (Bld) [Partial pressure] 41 mmHg Normal 36-46 [facility] Comment on above: Order Comment: Speci men Type: ARTERIAL BLOOD SPECIMENOrdering Facility: [facility] Address: [facility] [place] [address] Performed By: #### A LLBG ####[facility] [id number] [place] [address] [place] FIO2 30 % Normal [facility] Comment on above: Order Comment: Speci men Type: ARTERIAL BLOOD SPECIMENOrdering Facility: [facility] Address: [address] [place] [address] Performed By: #### A LLBG ####[facility] [id number] [place] [address] [place] Order Comment: Speci men Type: VENOUS BLOOD SPECIMENOrdering Facility: [facility] Address: [address] [place] [address] Performed By: #### 2 4344-4 ####[facility] [id number] [place] [address] [place] Glucose [Mass/Vol] 149 mg/dL High 60-105 [facility] Comment on above: Order Comment: Speci men Type: ARTERIAL BLOOD SPECIMENOrdering Facility: [facility] Address: [address] [place] [address] Performed By: #### A LLBG ####[facility] [id number] [place] [address] [place] HCO3 (Bld) [Moles/Vol] 23 mmol/L Low 24-28 [facility] Comment on above: Order Comment: Speci men Type: ARTERIAL BLOOD SPECIMENOrdering Facility: [facility] Address: [address] [place] [address] Performed By: #### A LLBG ####[facility] [id number] [place] [address] [place] Order Comment: Speci men Type: VENOUS BLOOD SPECIMENOrdering Facility: [facility] Address: [address] [place] [address] Performed By: #### 2 4344-4 ####[facility] [id number] [place] [address] [place] Hematocrit (Bld) [Volume fraction] 37.0 % Low 39.0-51.0 [facility] Comment on above: Order Comment: Speci men Type: ARTERIAL BLOOD SPECIMENOrdering Facility: [facility] Address: [address] [place] [address] Performed By: #### A LLBG ####[facility] [id number] [place] [address] [place] Hemoglobin (Bld) [Mass/Vol] 12.0 g/dL Low 13.0-17.0 [facility] Comment on above: Order Comment: Speci men Type: ARTERIAL BLOOD SPECIMENOrdering Facility: [facility] Address: [address] [place] [address] Performed By: #### A LLBG ####[facility] [id number] [place] [address] [place] Lactate [Moles/Vol] 5.6 mmol/L High 0.5-2.2 [facility] Comment on above: Order Comment: Speci men Type: ARTERIAL BLOOD SPECIMENOrdering Facility: [facility] Address: [address] [place] [address] Performed By: #### A LLBG ####[facility] [id number] [place] [address] [place] Methemoglobin (Bld) [Mass fraction] 0.8 % Normal 0.0-1.5 [facility] Comment on above: Order Comment: Speci men Type: ARTERIAL BLOOD SPECIMENOrdering Facility: [facility] Address: [address] [place] [address] Performed By: #### A LLBG ####[facility] [id number] [address] [address] [place] O2 THERAPY VENT=Ventilator Normal [facility] Comment on above: Order Comment: Speci men Type: ARTERIAL BLOOD SPECIMENOrdering Facility: [facility] Address: [address] [place] [id number] Performed By: #### A LLBG ####[facility] [id number] [place] [address] [place] Order Comment: Speci men Type: VENOUS BLOOD SPECIMENOrdering Facility: [facility] Address: [address] [place] [address] Performed By: #### 2 4344-4 ####[facility] [id number] [address] [address] [place] Oxygen (Bld) [Partial pressure] 91 mm Hg Normal 85-95 [facility] Comment on above: Order Comment: Speci men Type: ARTERIAL BLOOD SPECIMENOrdering Facility: [facility] Address: [address] [place] [id number] Performed By: #### A LLBG ####[facility] [id number] [place] [id number] [place] Oxygen adjusted to patient's actual temperature (Bld) [Partial pressure] 103 mmHg High 85-95 [facility] Comment on above: Order Comment: Speci men Type: ARTERIAL BLOOD SPECIMENOrdering Facility: [facility] Address: [address] [place] [id number] Performed By: #### A LLBG ####[facility] [id number] [address] [address] [place] Oxyhemoglobin (BldA) [Mass fraction] 96 % Normal 95-98 [facility] Comment on above: Order Comment: Speci men Type: ARTERIAL BLOOD SPECIMENOrdering Facility: [facility] Address: [address] [place] [address] Performed By: #### A LLBG ####[facility] [id number] [place] [address] [place] PEEP/CPAP 8 cmH2O Normal [facility] Comment on above: Order Comment: Speci men Type: ARTERIAL BLOOD SPECIMENOrdering Facility: [facility] Address: [address] [place] [address] Performed By: #### A LLBG ####[facility] [id number] [place] [address] [place] Order Comment: Speci men Type: VENOUS BLOOD SPECIMENOrdering Facility: [facility] Address: [address] [place] [address] Performed By: #### 2 4344-4 ####[facility] [id number] [place] [address] [place] pH (Bld) 7.42 [pH] Normal 7.35-7.45 [facility] Comment on above: Order Comment: Speci men Type: ARTERIAL BLOOD SPECIMENOrdering Facility: [facility] Address: [address] [place] [address] Performed By: #### A LLBG ####[facility] [id number] [place] [address] [place] pH adjusted to patient's actual temperature (Bld) 7.39 Normal 7.35-7.45 [facility] Comment on above: Order Comment: Speci men Type: ARTERIAL BLOOD SPECIMENOrdering Facility: [facility] Address: [address] [place] [address] Performed By: #### A LLBG ####[facility] [id number] [id number] [address] [place] PO2 / FIO2 RATIO 303 mmHg Normal >300 [facility] Comment on above: Order Comment: Speci men Type: ARTERIAL BLOOD SPECIMENOrdering Facility: [facility] Address: [address] [place] [id number] Performed By: #### A LLBG ####[facility] [id number] [place] [address] [place] Potassium [Moles/Vol] 4.9 mmol/L Normal 3.5-5.0 [facility] Comment on above: Order Comment: Speci men Type: ARTERIAL BLOOD SPECIMENOrdering Facility: [facility] Address: [address] [place] [address] Performed By: #### A LLBG ####[facility] [id number] [place] [address] [place] SET VENTILATOR RESPIRATORY RATE (BPM) 24 BPM Normal [facility] Comment on above: Order Comment: Speci men Type: ARTERIAL BLOOD SPECIMENOrdering Facility: [facility] Address: [address] [place], [place] [address] Performed By: #### A LLBG ####[facility] [id number] [place] [address] [place] Order Comment: Speci men Type: VENOUS BLOOD SPECIMENOrdering Facility: [facility] Address: [address] [place] [address] Performed By: #### 2 4344-4 ####[facility] [id number] [place] [id number] [place] Sodium [Moles/Vol] 137 mmol/L Normal 136-144 [facility] Comment on above: Order Comment: Speci men Type: ARTERIAL BLOOD SPECIMENOrdering Facility: [facility] Address: [address] [place], [place] [address] Performed By: #### A LLBG ####[facility] [id number] [place] [id number] [place] Base deficit (BldA) [Moles/Vol] -1 mmol/L Normal -2-0 [facility] Comment on above: Order Comment: Speci men Type: ARTERIAL BLOOD SPECIMENOrdering Facility: [facility] Address: [address] [place] [address] Performed By: #### A LLBG ####[facility] [id number] [place] [address] [place] Body temperature 101.66 [degF] Normal [facility] Comment on above: Order Comment: Speci men Type: ARTERIAL BLOOD SPECIMENOrdering Facility: [facility] Address: [address] [place] [address] Performed By: #### A LLBG ####[facility] [id number] [place] [address] [place] Order Comment: Speci men Type: VENOUS BLOOD SPECIMENOrdering Facility: [facility] Address: [address] [place] [address] Performed By: #### 2 4344-4 ####[facility] [id number] [place] [address] [place] Calcium.ionized (Bld) [Mass/Vol] 1.22 mmol/L Normal 1.08-1.30 [facility] Comment on above: Order Comment: Speci men Type: ARTERIAL BLOOD SPECIMENOrdering Facility: [facility] Address: [address] [place] [address] Performed By: #### A LLBG ####[facility] [id number] [place] [address] [place] Calcium.ionized adjusted to pH 7.4 (BldA) [Moles/Vol] 1.23 mmol/L Normal 1.08-1.30 [facility] Comment on above: Order Comment: Speci men Type: ARTERIAL BLOOD SPECIMENOrdering Facility: [facility] Address: [address] [place] [address] Performed By: #### A LLBG ####[facility] [id number] [place] [address] [place] Carboxyhemoglobin (BldA) [Mass fraction] 1.1 % Normal 0.0-2.0 [facility] Comment on above: Order Comment: Speci men Type: ARTERIAL BLOOD SPECIMENOrdering Facility: [facility] Address: [address] [place] [address] Result Comment: Carb oxyhemoglobin Reference Range for Smokers: 2.0-8.0% Performed By: #### A LLBG ####[facility] [id number] [place] [address] [place] CO2 (Bld) [Partial pressure] 35 mm Hg Low 36-46 [facility] Comment on above: Order Comment: Speci men Type: ARTERIAL BLOOD SPECIMENOrdering Facility: [facility] Address: [address] [place] [address] Performed By: #### A LLBG ####[facility] [id number] [place] [address] [place] CO2 adjusted to patient's actual temperature (Bld) [Partial pressure] 38 mmHg Normal 36-46 [facility] Comment on above: Order Comment: Speci men Type: ARTERIAL BLOOD SPECIMENOrdering Facility: [facility] Address: [address] [place] [address] Performed By: #### A LLBG ####[facility] [id number] [place] [address] [place] FIO2 30 % Normal [facility] Comment on above: Order Comment: Speci men Type: ARTERIAL BLOOD SPECIMENOrdering Facility: [facility] Address: [address] [place] [address] Performed By: #### A LLBG ####[facility] [id number] [place] [address] [place] Order Comment: Speci men Type: VENOUS BLOOD SPECIMENOrdering Facility: [facility] Address: [address] [place] [address] Performed By: #### 2 4344-4 ####[facility] [id number] [place] [address] [place] Glucose [Mass/Vol] 146 mg/dL High 60-105 [facility] Comment on above: Order Comment: Speci men Type: ARTERIAL BLOOD SPECIMENOrdering Facility: [facility] Address: [address] [place] [address] Performed By: #### A LLBG ####[facility] [id number] [place] [address] [place] HCO3 (Bld) [Moles/Vol] 22 mmol/L Normal 22-26 [facility] Comment on above: Order Comment: Speci men Type: ARTERIAL BLOOD SPECIMENOrdering Facility: [facility] Address: [address] [place] [address] Performed By: #### A LLBG ####[facility] [id number] [place] [address] [place] Hematocrit (Bld) [Volume fraction] 36.9 % Low 39.0-51.0 [facility] Comment on above: Order Comment: Speci men Type: ARTERIAL BLOOD SPECIMENOrdering Facility: [facility] Address: [address] [place] [address] Performed By: #### A LLBG ####[facility] [id number] [place] [address] [place] Hemoglobin (Bld) [Mass/Vol] 12.0 g/dL Low 13.0-17.0 [facility] Comment on above: Order Comment: Speci men Type: ARTERIAL BLOOD SPECIMENOrdering Facility: [facility] Address: [address] [place] [address] Performed By: #### A LLBG ####[facility] [id number] [place] [address] [place] Lactate [Moles/Vol] 5.9 mmol/L High 0.5-2.2 [facility] Comment on above: Order Comment: Speci men Type: ARTERIAL BLOOD SPECIMENOrdering Facility: [facility] Address: [address] [place] [address] Performed By: #### A LLBG ####[facility] [id number] [place] [address] [place] Methemoglobin (Bld) [Mass fraction] 0.7 % Normal 0.0-1.5 [facility] Comment on above: Order Comment: Speci men Type: ARTERIAL BLOOD SPECIMENOrdering Facility: [facility] Address: [address] [place] [address] Performed By: #### A LLBG ####[facility] [id number] [place] [address] [place] O2 THERAPY VENT=Ventilator Normal [facility] Comment on above: Order Comment: Speci men Type: ARTERIAL BLOOD SPECIMENOrdering Facility: [facility] Address: [address] [place] [address] Performed By: #### A LLBG ####[facility] [id number] [place] [address] [place] Order Comment: Speci men Type: VENOUS BLOOD SPECIMENOrdering Facility: [facility] Address: [address] [place] [address] Performed By: #### 2 4344-4 ####[facility] [id number] [place] [address] [place] Oxygen (Bld) [Partial pressure] 123 mm Hg High 85-95 [facility] Comment on above: Order Comment: Speci men Type: ARTERIAL BLOOD SPECIMENOrdering Facility: [facility] Address: [address] [place] [address] Performed By: #### A LLBG ####[facility] [id number] [place] [address] [place] Oxygen adjusted to patient's actual temperature (Bld) [Partial pressure] 132 mmHg High 85-95 [facility] Comment on above: Order Comment: Speci men Type: ARTERIAL BLOOD SPECIMENOrdering Facility: [facility] Address: [address] [place] [address] Performed By: #### A LLBG ####[facility] [id number] [place] [address] [place] Oxyhemoglobin (BldA) [Mass fraction] 97 % Normal 95-98 [facility] Comment on above: Order Comment: Speci men Type: ARTERIAL BLOOD SPECIMENOrdering Facility: [facility] Address: [address] [place] [address] Performed By: #### A LLBG ####[facility] [id number] [place] [address] [place] PEEP/CPAP 8 cmH2O Normal [facility] Comment on above: Order Comment: Speci men Type: ARTERIAL BLOOD SPECIMENOrdering Facility: [facility] Address: [address] [place] [address] Performed By: #### A LLBG ####[facility] [id number] [place] [address] [place] Order Comment: Speci men Type: VENOUS BLOOD SPECIMENOrdering Facility: [facility] Address: [address] [place] [address] Performed By: #### 2 4344-4 ####[facility] [id number] [place] [address] [place] pH (Bld) 7.42 [pH] Normal 7.35-7.45 [facility] Comment on above: Order Comment: Speci men Type: ARTERIAL BLOOD SPECIMENOrdering Facility: [facility] Address: [address] [place] [address] Performed By: #### A LLBG ####[facility] [id number] [place] [address] [place] pH adjusted to patient's actual temperature (Bld) 7.39 Normal 7.35-7.45 [facility] Comment on above: Order Comment: Speci men Type: ARTERIAL BLOOD SPECIMENOrdering Facility: [facility] Address: [address] [place] [address] Performed By: #### A LLBG ####[facility] [id number] [place] [address] [place] PO2 / FIO2 RATIO 410 mmHg Normal >300 [facility] Comment on above: Order Comment: Speci men Type: ARTERIAL BLOOD SPECIMENOrdering Facility: [facility] Address: [address] [place] [address] Performed By: #### A LLBG ####[facility] [id number] [place] [address] [place] Potassium [Moles/Vol] 4.7 mmol/L Normal 3.5-5.0 [facility] Comment on above: Order Comment: Speci men Type: ARTERIAL BLOOD SPECIMENOrdering Facility: [facility] Address: [address] [place] [address] Performed By: #### A LLBG ####[facility] [id number] [place] [address] [place] SET VENTILATOR RESPIRATORY RATE (BPM) 24 BPM Normal [facility] Comment on above: Order Comment: Speci men Type: ARTERIAL BLOOD SPECIMENOrdering Facility: [facility] Address: [address] [place] [address] Performed By: #### A LLBG ####[facility] [id number] [place] [address] [place] Sodium [Moles/Vol] 138 mmol/L Normal 136-144 [facility] Comment on above: Order Comment: Speci men Type: ARTERIAL BLOOD SPECIMENOrdering Facility: [facility] Address: [address] [place] [address] Performed By: #### A LLBG ####[facility] [id number] [place] [address] [place] Base deficit (BldA) [Moles/Vol] -2 mmol/L Normal -2-0 [facility] Comment on above: Order Comment: Speci men Type: ARTERIAL BLOOD SPECIMENOrdering Facility: [facility] Address: [address] [place] [address] Performed By: #### A LLBG ####[facility] [id number] [place] [address] [place] Calcium.ionized (Bld) [Mass/Vol] 1.19 mmol/L Normal 1.08-1.30 [facility] Comment on above: Order Comment: Speci men Type: ARTERIAL BLOOD SPECIMENOrdering Facility: [facility] Address: [address] [place] [address] Performed By: #### A LLBG ####[facility] [id number] [place] [address] [place] Calcium.ionized adjusted to pH 7.4 (BldA) [Moles/Vol] 1.20 mmol/L Normal 1.08-1.30 [facility] Comment on above: Order Comment: Speci men Type: ARTERIAL BLOOD SPECIMENOrdering Facility: [facility] Address: [address] [place] [address] Performed By: #### A LLBG ####[facility] [id number] [place] [address] [place] Carboxyhemoglobin (BldA) [Mass fraction] 0.9 % Normal 0.0-2.0 [facility] Comment on above: Order Comment: Speci men Type: ARTERIAL BLOOD SPECIMENOrdering Facility: [facility] Address: [address] [place] [address] Result Comment: Carb oxyhemoglobin Reference Range for Smokers: 2.0-8.0% Performed By: #### A LLBG ####[facility] [id number] [place] [address] [place] CO2 (Bld) [Partial pressure] 35 mm Hg Low 36-46 [facility] Comment on above: Order Comment: Speci men Type: ARTERIAL BLOOD SPECIMENOrdering Facility: [facility] Address: [address] [place] [address] Performed By: #### A LLBG ####[facility] [id number] [place] [address] [place] CO2 adjusted to patient's actual temperature (Bld) [Partial pressure] 37 mmHg Normal 36-46 [facility] Comment on above: Order Comment: Speci men Type: ARTERIAL BLOOD SPECIMENOrdering Facility: [facility] Address: [address] [place] [address] Performed By: #### A LLBG ####[facility] [id number] [place] [address] [place] Glucose [Mass/Vol] 132 mg/dL High 60-105 [facility] Comment on above: Order Comment: Speci men Type: ARTERIAL BLOOD SPECIMENOrdering Facility: [facility] Address: [address] [place] [address] Performed By: #### A LLBG ####[facility] [id number] [place] [address] [place] HCO3 (Bld) [Moles/Vol] 21 mmol/L Low 22-26 [facility] Comment on above: Order Comment: Speci men Type: ARTERIAL BLOOD SPECIMENOrdering Facility: [facility] Address: [address] [place] [address] Performed By: #### A LLBG ####[facility] [id number] [place] [address] [place] Hematocrit (Bld) [Volume fraction] 37.1 % Low 39.0-51.0 [facility] Comment on above: Order Comment: Speci men Type: ARTERIAL BLOOD SPECIMENOrdering Facility: [facility] Address: [address] [place] [address] Performed By: #### A LLBG ####[facility] [id number] [place] [address] [place] Hemoglobin (Bld) [Mass/Vol] 12.0 g/dL Low 13.0-17.0 [facility] Comment on above: Order Comment: Speci men Type: ARTERIAL BLOOD SPECIMENOrdering Facility: [facility] Address: [address] [place] [address] Performed By: #### A LLBG ####[facility] [id number] [place] [address] [place] Lactate [Moles/Vol] 7.3 mmol/L High 0.5-2.2 [facility] Comment on above: Order Comment: Speci men Type: ARTERIAL BLOOD SPECIMENOrdering Facility: [facility] Address: [address] [place] [address] Performed By: #### A LLBG ####[facility] [id number] [place] [address] [place] Methemoglobin (Bld) [Mass fraction] 0.6 % Normal 0.0-1.5 [facility] Comment on above: Order Comment: Speci men Type: ARTERIAL BLOOD SPECIMENOrdering Facility: [facility] Address: [address] [place] [address] Performed By: #### A LLBG ####[facility] [id number] [place] [address] [place] Oxygen (Bld) [Partial pressure] 122 mm Hg High 85-95 [facility] Comment on above: Order Comment: Speci men Type: ARTERIAL BLOOD SPECIMENOrdering Facility: [facility] Address: [address] [place] [address] Performed By: #### A LLBG ####[facility] [id number] [place] [address] [place] Oxygen adjusted to patient's actual temperature (Bld) [Partial pressure] 129 mmHg High 85-95 [facility] Comment on above: Order Comment: Speci men Type: ARTERIAL BLOOD SPECIMENOrdering Facility: [facility] Address: [address] [place] [address] Performed By: #### A LLBG ####[facility] [id number] [place] [address] [place] Oxyhemoglobin (BldA) [Mass fraction] 97 % Normal 95-98 [facility] Comment on above: Order Comment: Speci men Type: ARTERIAL BLOOD SPECIMENOrdering Facility: [facility] Address: [address] [place] [address] Performed By: #### A LLBG ####[facility] [id number] [place] [address] [place] pH (Bld) 7.40 [pH] Normal 7.35-7.45 [facility] Comment on above: Order Comment: Speci men Type: ARTERIAL BLOOD SPECIMENOrdering Facility: [facility] Address: [address] [place] [address] Performed By: #### A LLBG ####[facility] [id number] [place] [address] [place] pH adjusted to patient's actual temperature (Bld) 7.39 Normal 7.35-7.45 [facility] Comment on above: Order Comment: Speci men Type: ARTERIAL BLOOD SPECIMENOrdering Facility: [facility] Address: [address] [place] [address] Performed By: #### A LLBG ####[facility] [id number] [place] [address] [place] PO2 / FIO2 RATIO 407 mmHg Normal >300 [facility] Comment on above: Order Comment: Speci men Type: ARTERIAL BLOOD SPECIMENOrdering Facility: [facility] Address: [address] [place], [place] [id number] Performed By: #### A LLBG ####[facility] [id number] [place] [address] [place] Potassium [Moles/Vol] 4.4 mmol/L Normal 3.5-5.0 [facility] Comment on above: Order Comment: Speci men Type: ARTERIAL BLOOD SPECIMENOrdering Facility: [facility] Address: [address] [place] [address] Performed By: #### A LLBG ####[facility] [id number] [place] [address] [place] Sodium [Moles/Vol] 138 mmol/L Normal 136-144 [facility] Comment on above: Order Comment: Speci men Type: ARTERIAL BLOOD SPECIMENOrdering Facility: [facility] Address: [address] [place] [address] Performed By: #### A LLBG ####[facility] [id number] [place] [address] [place] Base deficit (BldA) [Moles/Vol] -2 mmol/L Normal -2-0 [facility] Comment on above: Order Comment: Speci men Type: ARTERIAL BLOOD SPECIMENOrdering Facility: [facility] Address: [address] [place] [address] Performed By: #### A LLBG ####[facility] [id number] [place] [address] [place] Body temperature 99.14 [degF] Normal [facility] Comment on above: Order Comment: Speci men Type: ARTERIAL BLOOD SPECIMENOrdering Facility: [facility] Address: [address] [place] [address] Performed By: #### A LLBG ####[facility] [id number] [place] [address] [place] Calcium.ionized (Bld) [Mass/Vol] 1.24 mmol/L Normal 1.08-1.30 [facility] Comment on above: Order Comment: Speci men Type: ARTERIAL BLOOD SPECIMENOrdering Facility: [facility] Address: [address] [place] [address] Performed By: #### A LLBG ####[facility] [id number] [place] [address] [place] Calcium.ionized adjusted to pH 7.4 (BldA) [Moles/Vol] 1.22 mmol/L Normal 1.08-1.30 [facility] Comment on above: Order Comment: Speci men Type: ARTERIAL BLOOD SPECIMENOrdering Facility: [facility] Address: [address] [place] [address] Performed By: #### A LLBG ####[facility] [id number] [place] [address] [place] Carboxyhemoglobin (BldA) [Mass fraction] 1.5 % Normal 0.0-2.0 [facility] Comment on above: Order Comment: Speci men Type: ARTERIAL BLOOD SPECIMENOrdering Facility: [facility] Address: [address] [place] [address] Result Comment: Carb oxyhemoglobin Reference Range for Smokers: 2.0-8.0% Performed By: #### A LLBG ####[facility] [id number] [place] [address] [place] CO2 (Bld) [Partial pressure] 39 mm Hg Normal 36-46 [facility] Comment on above: Order Comment: Speci men Type: ARTERIAL BLOOD SPECIMENOrdering Facility: [facility] Address: [address] [place] [address] Performed By: #### A LLBG ####[facility] [id number] [place] [address] [place] CO2 adjusted to patient's actual temperature (Bld) [Partial pressure] 40 mmHg Normal 36-46 [facility] Comment on above: Order Comment: Speci men Type: ARTERIAL BLOOD SPECIMENOrdering Facility: [facility] Address: [address] [place] [address] Performed By: #### A LLBG ####[facility] [id number] [place] [address] [place] FIO2 40 % Normal [facility] Comment on above: Order Comment: Speci men Type: ARTERIAL BLOOD SPECIMENOrdering Facility: [facility] Address: [address] [place] [address] Performed By: #### A LLBG ####[facility] [id number] [place] [address] [place] Glucose [Mass/Vol] 157 mg/dL High 60-105 [facility] Comment on above: Order Comment: Speci men Type: ARTERIAL BLOOD SPECIMENOrdering Facility: [facility] Address: [address] [place] [address] Performed By: #### A LLBG ####[facility] [id number] [place] [address] [place] HCO3 (Bld) [Moles/Vol] 22 mmol/L Normal 22-26 [facility] Comment on above: Order Comment: Speci men Type: ARTERIAL BLOOD SPECIMENOrdering Facility: [facility] Address: [address] [place] [address] Performed By: #### A LLBG ####[facility] [id number] [place] [address] [place] Hematocrit (Bld) [Volume fraction] 38.3 % Low 39.0-51.0 [facility] Comment on above: Order Comment: Speci men Type: ARTERIAL BLOOD SPECIMENOrdering Facility: [facility] Address: [address] [place] [address] Performed By: #### A LLBG ####[facility] [id number] [place] [address] [place] Hemoglobin (Bld) [Mass/Vol] 12.5 g/dL Low 13.0-17.0 [facility] Comment on above: Order Comment: Speci men Type: ARTERIAL BLOOD SPECIMENOrdering Facility: [facility] Address: [address] [place] [address] Performed By: #### A LLBG ####[facility] [id number] [place] [address] [place] Lactate [Moles/Vol] 9.0 mmol/L High 0.5-2.2 [facility] Comment on above: Order Comment: Speci men Type: ARTERIAL BLOOD SPECIMENOrdering Facility: [facility] Address: [address] [place] [address] Performed By: #### A LLBG ####[facility] [id number] [place] [address] [place] Methemoglobin (Bld) [Mass fraction] 1.3 % Normal 0.0-1.5 [facility] Comment on above: Order Comment: Speci men Type: ARTERIAL BLOOD SPECIMENOrdering Facility: [facility] Address: [address] [place] [address] Performed By: #### A LLBG ####[facility] [id number] [place] [address] [place] O2 THERAPY VENT=Ventilator Normal [facility] Comment on above: Order Comment: Speci men Type: ARTERIAL BLOOD SPECIMENOrdering Facility: [facility] Address: [address] [place] [address] Performed By: #### A LLBG ####[facility] [id number] [address] [address] [place] Oxygen (Bld) [Partial pressure] 147 mm Hg High 85-95 [facility] Comment on above: Order Comment: Speci men Type: ARTERIAL BLOOD SPECIMENOrdering Facility: [facility] Address: [address] [place] [address] Performed By: #### A LLBG ####[facility] [id number] [place] [id number] [place] Oxygen adjusted to patient's actual temperature (Bld) [Partial pressure] 148 mmHg High 85-95 [facility] Comment on above: Order Comment: Speci men Type: ARTERIAL BLOOD SPECIMENOrdering Facility: [facility] Address: [address] [place] [address] Performed By: #### A LLBG ####[facility] [id number] [place] [address] [place] Oxyhemoglobin (BldA) [Mass fraction] 97 % Normal 95-98 [facility] Comment on above: Order Comment: Speci men Type: ARTERIAL BLOOD SPECIMENOrdering Facility: [facility] Address: [address] [place] [address] Performed By: #### A LLBG ####[facility] [id number] [place] [id number] [place] pH (Bld) 7.37 [pH] Normal 7.35-7.45 [facility] Comment on above: Order Comment: Speci men Type: ARTERIAL BLOOD SPECIMENOrdering Facility: [facility] Address: [address] [place] [address] Performed By: #### A LLBG ####[facility] [id number] [place] [id number] [place] pH adjusted to patient's actual temperature (Bld) 7.37 Normal 7.35-7.45 [facility] Comment on above: Order Comment: Speci men Type: ARTERIAL BLOOD SPECIMENOrdering Facility: [facility] Address: [address] [place] [address] Performed By: #### A LLBG ####[facility] [id number] [place] [address] [place] PO2 / FIO2 RATIO 368 mmHg Normal >300 [facility] Comment on above: Order Comment: Speci men Type: ARTERIAL BLOOD SPECIMENOrdering Facility: [facility] Address: [address] [place] [address] Performed By: #### A LLBG ####[facility] [id number] [place] [address] [place] Potassium [Moles/Vol] 4.1 mmol/L Normal 3.5-5.0 [facility] Comment on above: Order Comment: Speci men Type: ARTERIAL BLOOD SPECIMENOrdering Facility: [facility] Address: [address] [place] [address] Performed By: #### A LLBG ####[facility] [id number] [place] [address] [place] Sodium [Moles/Vol] 138 mmol/L Normal 136-144 [facility] Comment on above: Order Comment: Speci men Type: ARTERIAL BLOOD SPECIMENOrdering Facility: [facility] Address: [address] [place] [address] Performed By: #### A LLBG ####[facility] [id number] [place] [address] [place] Base deficit (BldA) [Moles/Vol] -6 mmol/L Low -2-0 [facility] Comment on above: Order Comment: Speci men Type: ARTERIAL BLOOD SPECIMENOrdering Facility: [facility] Address: [address] [place] [address] Performed By: #### A LLBG ####[facility] [id number] [place] [address] [place] Body temperature 99.14 [degF] Normal [facility] Comment on above: Order Comment: Speci men Type: ARTERIAL BLOOD SPECIMENOrdering Facility: [facility] Address: [address] [place] [address] Performed By: #### A LLBG ####[facility] [id number] [place] [address] [place] Order Comment: Speci men Type: VENOUS BLOOD SPECIMENOrdering Facility: [facility] Address: [address] [place] [address] Performed By: #### 2 4344-4 ####[facility] [id number] [place] [address] [place] Calcium.ionized (Bld) [Mass/Vol] 1.20 mmol/L Normal 1.08-1.30 [facility] Comment on above: Order Comment: Speci men Type: ARTERIAL BLOOD SPECIMENOrdering Facility: [facility] Address: [address] [place] [address] Performed By: #### A LLBG ####[facility] [id number] [place] [address] [place] Calcium.ionized adjusted to pH 7.4 (BldA) [Moles/Vol] 1.14 mmol/L Normal 1.08-1.30 [facility] Comment on above: Order Comment: Speci men Type: ARTERIAL BLOOD SPECIMENOrdering Facility: [facility] Address: [address] [place] [address] Performed By: #### A LLBG ####[facility] [id number] [place] [address] [place] Carboxyhemoglobin (BldA) [Mass fraction] 1.0 % Normal 0.0-2.0 [facility] Comment on above: Order Comment: Speci men Type: ARTERIAL BLOOD SPECIMENOrdering Facility: [facility] Address: [address], [place] [address] Result Comment: Carb oxyhemoglobin Reference Range for Smokers: 2.0-8.0% Performed By: #### A LLBG ####[facility] [id number] [place] [address] [place] CO2 (Bld) [Partial pressure] 38 mm Hg Normal 36-46 [facility] Comment on above: Order Comment: Speci men Type: ARTERIAL BLOOD SPECIMENOrdering Facility: [facility] Address: [address] [place] [address] Performed By: #### A LLBG ####[facility] [id number] [place] [address] [place] CO2 adjusted to patient's actual temperature (Bld) [Partial pressure] 39 mmHg Normal 36-46 [facility] Comment on above: Order Comment: Speci men Type: ARTERIAL BLOOD SPECIMENOrdering Facility: [facility] Address: [address] [place] [address] Performed By: #### A LLBG ####[facility] [id number] [place] [address] [place] FIO2 40 % Normal [facility] Comment on above: Order Comment: Speci men Type: ARTERIAL BLOOD SPECIMENOrdering Facility: [facility] Address: [address] [place] [address] Performed By: #### A LLBG ####[facility] [id number] [place] [address] [place] Order Comment: Speci men Type: VENOUS BLOOD SPECIMENOrdering Facility: [facility] Address: [address] [place] [address] Performed By: #### 2 4344-4 ####[facility] [id number] [place] [address] [place] Glucose [Mass/Vol] 166 mg/dL High 60-105 [facility] Comment on above: Order Comment: Speci men Type: ARTERIAL BLOOD SPECIMENOrdering Facility: [facility] Address: [address] [place] [address] Performed By: #### A LLBG ####[facility] [id number] [place] [address] [place] HCO3 (Bld) [Moles/Vol] 19 mmol/L Low 24-28 [facility] Comment on above: Order Comment: Speci men Type: ARTERIAL BLOOD SPECIMENOrdering Facility: [facility] Address: [address] [place] [address] Performed By: #### A LLBG ####[facility] [id number] [place] [address] [place] Order Comment: Speci men Type: VENOUS BLOOD SPECIMENOrdering Facility: [facility] Address: [address] [place] [address] Performed By: #### 2 4344-4 ####[facility] [id number] [place] [address] [place] Hematocrit (Bld) [Volume fraction] 41.0 % Normal 39.0-51.0 [facility] Comment on above: Order Comment: Speci men Type: ARTERIAL BLOOD SPECIMENOrdering Facility: [facility] Address: [address] [place] [address] Performed By: #### A LLBG ####[facility] [id number] [place] [address] [place] Hemoglobin (Bld) [Mass/Vol] 13.4 g/dL Normal 13.0-17.0 [facility] Comment on above: Order Comment: Speci men Type: ARTERIAL BLOOD SPECIMENOrdering Facility: [facility] Address: [address] [place] [address] Performed By: #### A LLBG ####[facility] [id number] [place] [address] [place] Lactate [Moles/Vol] 8.3 mmol/L High 0.5-2.2 [facility] Comment on above: Order Comment: Speci men Type: ARTERIAL BLOOD SPECIMENOrdering Facility: [facility] Address: [address] [place] [address] Performed By: #### A LLBG ####[facility] [id number] [place] [address] [place] Methemoglobin (Bld) [Mass fraction] 0.9 % Normal 0.0-1.5 [facility] Comment on above: Order Comment: Speci men Type: ARTERIAL BLOOD SPECIMENOrdering Facility: [facility] Address: [address] [place] [address] Performed By: #### A LLBG ####[facility] [id number] [place] [address] [place] Order Comment: Speci men Type: VENOUS BLOOD SPECIMENOrdering Facility: [facility] Address: [address] [place] [address] Performed By: #### 2 4344-4 ####[facility] [id number] [place] [address] [place] O2 THERAPY VENT=Ventilator Normal [facility] Comment on above: Order Comment: Speci men Type: ARTERIAL BLOOD SPECIMENOrdering Facility: [facility] Address: [address] [place] [address] Performed By: #### A LLBG ####[facility] [id number] [place] [id number] [place] Order Comment: Speci men Type: VENOUS BLOOD SPECIMENOrdering Facility: [facility] Address: [address] [place] [address] Performed By: #### 2 4344-4 ####[facility] [id number] [address] [address] [place] Oxygen (Bld) [Partial pressure] 156 mm Hg High 85-95 [facility] Comment on above: Order Comment: Speci men Type: ARTERIAL BLOOD SPECIMENOrdering Facility: [facility] Address: [address] [place] [address] Performed By: #### A LLBG ####[facility] [id number] [place] [address] [place] Oxygen adjusted to patient's actual temperature (Bld) [Partial pressure] 158 mmHg High 85-95 [facility] Comment on above: Order Comment: Speci men Type: ARTERIAL BLOOD SPECIMENOrdering Facility: [facility] Address: [address] [place] [address] Performed By: #### A LLBG ####[facility] [id number] [place] [address] [place] Oxyhemoglobin (BldA) [Mass fraction] 97 % Normal 95-98 [facility] Comment on above: Order Comment: Speci men Type: ARTERIAL BLOOD SPECIMENOrdering Facility: [facility] Address: [address] [place] [address] Performed By: #### A LLBG ####[facility] [id number] [place] [address] [place] pH (Bld) 7.32 [pH] Low 7.35-7.45 [facility] Comment on above: Order Comment: Speci men Type: ARTERIAL BLOOD SPECIMENOrdering Facility: [facility] Address: [address] [place] [address] Performed By: #### A LLBG ####[facility] [id number] [place] [address] [place] pH adjusted to patient's actual temperature (Bld) 7.31 Low 7.35-7.45 [facility] Comment on above: Order Comment: Speci men Type: ARTERIAL BLOOD SPECIMENOrdering Facility: [facility] Address: [address] [place] [address] Performed By: #### A LLBG ####[facility] [id number] [place] [address] [place] PO2 / FIO2 RATIO 390 mmHg Normal >300 [facility] Comment on above: Order Comment: Speci men Type: ARTERIAL BLOOD SPECIMENOrdering Facility: [facility] Address: [address] [place] [address] Performed By: #### A LLBG ####[facility] [id number] [place] [address] [place] Potassium [Moles/Vol] 3.9 mmol/L Normal 3.5-5.0 [facility] Comment on above: Order Comment: Speci men Type: ARTERIAL BLOOD SPECIMENOrdering Facility: [facility] Address: [address] [place] [address] Performed By: #### A LLBG ####[facility] [id number] [place] [address] [place] Sodium [Moles/Vol] 142 mmol/L Normal 136-144 [facility] Comment on above: Order Comment: Speci men Type: ARTERIAL BLOOD SPECIMENOrdering Facility: [facility] Address: [address] [place] [address] Performed By: #### A LLBG ####[facility] [id number] [place] [address] [place] Base deficit (BldA) [Moles/Vol] -4 mmol/L Low -2-0 [facility] Comment on above: Order Comment: Speci men Type: ARTERIAL BLOOD SPECIMENOrdering Facility: [facility] Address: [address] [place] [address] Performed By: #### A LLBG ####[facility] [id number] [place] [address] [place] Body temperature 97.7 [degF] Normal [facility] Comment on above: Order Comment: Speci men Type: ARTERIAL BLOOD SPECIMENOrdering Facility: [facility] Address: [address] [place] [address] Performed By: #### A LLBG ####[facility] [id number] [place] [address] [place] Calcium.ionized (Bld) [Mass/Vol] 1.15 mmol/L Normal 1.08-1.30 [facility] Comment on above: Order Comment: Speci men Type: ARTERIAL BLOOD SPECIMENOrdering Facility: [facility] Address: [address] [place] [address] Performed By: #### A LLBG ####[facility] [id number] [place] [address] [place] Calcium.ionized adjusted to pH 7.4 (BldA) [Moles/Vol] 1.09 mmol/L Normal 1.08-1.30 [facility] Comment on above: Order Comment: Speci men Type: ARTERIAL BLOOD SPECIMENOrdering Facility: [facility] Address: [address] [place] [address] Performed By: #### A LLBG ####[facility] [id number] [place] [address] [place] Carboxyhemoglobin (BldA) [Mass fraction] 0.9 % Normal 0.0-2.0 [facility] Comment on above: Order Comment: Speci men Type: ARTERIAL BLOOD SPECIMENOrdering Facility: [facility] Address: [address] [place] [address] Result Comment: Carb oxyhemoglobin Reference Range for Smokers: 2.0-8.0% Performed By: #### A LLBG ####[facility] [id number] [place] [address] [place] CO2 (Bld) [Partial pressure] 45 mm Hg Normal 36-46 [facility] Comment on above: Order Comment: Speci men Type: ARTERIAL BLOOD SPECIMENOrdering Facility: [facility] Address: [address] [place], [place] [address] Performed By: #### A LLBG ####[facility] [id number] [place] [address] [place] CO2 adjusted to patient's actual temperature (Bld) [Partial pressure] 44 mmHg Normal 36-46 [facility] Comment on above: Order Comment: Speci men Type: ARTERIAL BLOOD SPECIMENOrdering Facility: [facility] Address: [address] [place] [address] Performed By: #### A LLBG ####[facility] [id number] [place] [address] [place] FIO2 50 % Normal [facility] Comment on above: Order Comment: Speci men Type: ARTERIAL BLOOD SPECIMENOrdering Facility: [facility] Address: [address] [place] [address] Performed By: #### A LLBG ####[facility] [id number] [place] [address] [place] Glucose [Mass/Vol] 186 mg/dL High 60-105 [facility] Comment on above: Order Comment: Speci men Type: ARTERIAL BLOOD SPECIMENOrdering Facility: [facility] Address: [address] [place] [address] Performed By: #### A LLBG ####[facility] [id number] [place] [address] [place] HCO3 (Bld) [Moles/Vol] 22 mmol/L Normal 22-26 [facility] Comment on above: Order Comment: Speci men Type: ARTERIAL BLOOD SPECIMENOrdering Facility: [facility] Address: [address] [place] [address] Performed By: #### A LLBG ####[facility] [id number] [place] [id number] [place] Hematocrit (Bld) [Volume fraction] 40.4 % Normal 39.0-51.0 [facility] Comment on above: Order Comment: Speci men Type: ARTERIAL BLOOD SPECIMENOrdering Facility: [facility] Address: [address] [place] [address] Performed By: #### A LLBG ####[facility] [id number] [place] [address] [place] Hemoglobin (Bld) [Mass/Vol] 13.1 g/dL Normal 13.0-17.0 [facility] Comment on above: Order Comment: Speci men Type: ARTERIAL BLOOD SPECIMENOrdering Facility: [facility] Address: [address] [place] [address] Performed By: #### A LLBG ####[facility] [id number] [place] [address] [place] Lactate [Moles/Vol] 7.1 mmol/L High 0.5-2.2 [facility] Comment on above: Order Comment: Speci men Type: ARTERIAL BLOOD SPECIMENOrdering Facility: [facility] Address: [address] [place] [address] Performed By: #### A LLBG ####[facility] [id number] [place] [address] [place] Methemoglobin (Bld) [Mass fraction] 1.0 % Normal 0.0-1.5 [facility] Comment on above: Order Comment: Speci men Type: ARTERIAL BLOOD SPECIMENOrdering Facility: [facility] Address: [address] [place] [address] Performed By: #### A LLBG ####[facility] [id number] [place] [address] [place] O2 THERAPY VENT=Ventilator Normal [facility] Comment on above: Order Comment: Speci men Type: ARTERIAL BLOOD SPECIMENOrdering Facility: [facility] Address: [address] [place] [address] Performed By: #### A LLBG ####[facility] [id number] [place] [id number] [place] Oxygen (Bld) [Partial pressure] 191 mm Hg High 85-95 [facility] Comment on above: Order Comment: Speci men Type: ARTERIAL BLOOD SPECIMENOrdering Facility: [facility] Address: [address] [place] [address] Performed By: #### A LLBG ####[facility] [id number] [place] [address] [place] Oxygen adjusted to patient's actual temperature (Bld) [Partial pressure] 188 mmHg High 85-95 [facility] Comment on above: Order Comment: Speci men Type: ARTERIAL BLOOD SPECIMENOrdering Facility: [facility] Address: [address] [place] [address] Performed By: #### A LLBG ####[facility] [id number] [place] [address] [place] Oxyhemoglobin (BldA) [Mass fraction] 97 % Normal 95-98 [facility] Comment on above: Order Comment: Speci men Type: ARTERIAL BLOOD SPECIMENOrdering Facility: [facility] Address: [address] [place] [address] Performed By: #### A LLBG ####[facility] [id number] [place] [address] [place] pH (Bld) 7.31 [pH] Low 7.35-7.45 [facility] Comment on above: Order Comment: Speci men Type: ARTERIAL BLOOD SPECIMENOrdering Facility: [facility] Address: [address] [place], [place] [address] Performed By: #### A LLBG ####[facility] [id number] [place] [address] [place] pH adjusted to patient's actual temperature (Bld) 7.32 Low 7.35-7.45 [facility] Comment on above: Order Comment: Speci men Type: ARTERIAL BLOOD SPECIMENOrdering Facility: [facility] Address: [address] [place] [address] Performed By: #### A LLBG ####[facility] [id number] [place] [address] [place] PO2 / FIO2 RATIO 382 mmHg Normal >300 [facility] Comment on above: Order Comment: Speci men Type: ARTERIAL BLOOD SPECIMENOrdering Facility: [facility] Address: [address] [place] [address] Performed By: #### A LLBG ####[facility] [id number] [place] [address] [place] Potassium [Moles/Vol] 3.7 mmol/L Normal 3.5-5.0 [facility] Comment on above: Order Comment: Speci men Type: ARTERIAL BLOOD SPECIMENOrdering Facility: [facility] Address: [address] [place] [address] Performed By: #### A LLBG ####[facility] [id number] [place] [address] [place] Sodium [Moles/Vol] 141 mmol/L Normal 136-144 [facility] Comment on above: Order Comment: Speci men Type: ARTERIAL BLOOD SPECIMENOrdering Facility: [facility] Address: [address] [place] [address] Performed By: #### A LLBG ####[facility] [id number] [place] [address] [place] Base deficit (BldA) [Moles/Vol] -7 mmol/L Low -2-0 [facility] Comment on above: Order Comment: Speci men Type: ARTERIAL BLOOD SPECIMENOrdering Facility: [facility] Address: [address] [place] [address] Performed By: #### A LLBG ####[facility] [id number] [place] [address] [place] Body temperature 97.7 [degF] Normal [facility] Comment on above: Order Comment: Speci men Type: ARTERIAL BLOOD SPECIMENOrdering Facility: [facility] Address: [address] [place] [address] Performed By: #### A LLBG ####[facility] [id number] [place] [address] [place] Calcium.ionized (Bld) [Mass/Vol] 1.20 mmol/L Normal 1.08-1.30 [facility] Comment on above: Order Comment: Speci men Type: ARTERIAL BLOOD SPECIMENOrdering Facility: [facility] Address: [address] [place] [address] Performed By: #### A LLBG ####[facility] [id number] [place] [address] [place] Calcium.ionized adjusted to pH 7.4 (BldA) [Moles/Vol] 1.12 mmol/L Normal 1.08-1.30 [facility] Comment on above: Order Comment: Speci men Type: ARTERIAL BLOOD SPECIMENOrdering Facility: [facility] Address: [address] [place] [address] Performed By: #### A LLBG ####[facility] [id number] [place] [address] [place] Carboxyhemoglobin (BldA) [Mass fraction] 1.1 % Normal 0.0-2.0 [facility] Comment on above: Order Comment: Speci men Type: ARTERIAL BLOOD SPECIMENOrdering Facility: [facility] Address: [address] [place] [address] Result Comment: Carb oxyhemoglobin Reference Range for Smokers: 2.0-8.0% Performed By: #### A LLBG ####[facility] [id number] [place] [address] [place] CO2 (Bld) [Partial pressure] 43 mm Hg Normal 36-46 [facility] Comment on above: Order Comment: Speci men Type: ARTERIAL BLOOD SPECIMENOrdering Facility: [facility] Address: [address] [place] [address] Performed By: #### A LLBG ####[facility] [id number] [address] [address] [place] CO2 adjusted to patient's actual temperature (Bld) [Partial pressure] 42 mmHg Normal 36-46 [facility] Comment on above: Order Comment: Speci men Type: ARTERIAL BLOOD SPECIMENOrdering Facility: [facility] Address: [address] [place] [address] Performed By: #### A LLBG ####[facility] [id number] [place] [address] [place] FIO2 50 % Normal [facility] Comment on above: Order Comment: Speci men Type: ARTERIAL BLOOD SPECIMENOrdering Facility: [facility] Address: [address] [place] [address] Performed By: #### A LLBG ####[facility] [id number] [place] [address] [place] Glucose [Mass/Vol] 179 mg/dL High 60-105 [facility] Comment on above: Order Comment: Speci men Type: ARTERIAL BLOOD SPECIMENOrdering Facility: [facility] Address: [address] [place] [address] Performed By: #### A LLBG ####[facility] [id number] [place] [id number] [place] HCO3 (Bld) [Moles/Vol] 19 mmol/L Low 22-26 [facility] Comment on above: Order Comment: Speci men Type: ARTERIAL BLOOD SPECIMENOrdering Facility: [facility] Address: [address] [place] [address] Performed By: #### A LLBG ####[facility] [id number] [place] [address] [place] Hematocrit (Bld) [Volume fraction] 42.1 % Normal 39.0-51.0 [facility] Comment on above: Order Comment: Speci men Type: ARTERIAL BLOOD SPECIMENOrdering Facility: [facility] Address: [address] [place] [address] Performed By: #### A LLBG ####[facility] [id number] [place] [address] [place] Hemoglobin (Bld) [Mass/Vol] 13.7 g/dL Normal 13.0-17.0 [facility] Comment on above: Order Comment: Speci men Type: ARTERIAL BLOOD SPECIMENOrdering Facility: [facility] Address: [address] [place] [address] Performed By: #### A LLBG ####[facility] [id number] [place] [address] [place] Lactate [Moles/Vol] 6.4 mmol/L High 0.5-2.2 [facility] Comment on above: Order Comment: Speci men Type: ARTERIAL BLOOD SPECIMENOrdering Facility: [facility] Address: [address] [place] [address] Performed By: #### A LLBG ####[facility] [id number] [place] [address] [place] Methemoglobin (Bld) [Mass fraction] 1.4 % Normal 0.0-1.5 [facility] Comment on above: Order Comment: Speci men Type: ARTERIAL BLOOD SPECIMENOrdering Facility: [facility] Address: [address] [place] [address] Performed By: #### A LLBG ####[facility] [id number] [place] [address] [place] O2 THERAPY VENT=Ventilator Normal [facility] Comment on above: Order Comment: Speci men Type: ARTERIAL BLOOD SPECIMENOrdering Facility: [facility] Address: [address] [place] [id number] Performed By: #### A LLBG ####[facility] [id number] [place] [id number] [place] Oxygen (Bld) [Partial pressure] 198 mm Hg High 85-95 [facility] Comment on above: Order Comment: Speci men Type: ARTERIAL BLOOD SPECIMENOrdering Facility: [facility] Address: [address] [place] [address] Performed By: #### A LLBG ####[facility] [id number] [place] [address] [place] Oxygen adjusted to patient's actual temperature (Bld) [Partial pressure] 196 mmHg High 85-95 [facility] Comment on above: Order Comment: Speci men Type: ARTERIAL BLOOD SPECIMENOrdering Facility: [facility] Address: [address] [place] [address] Performed By: #### A LLBG ####[facility] [id number] [place] [address] [place] Oxyhemoglobin (BldA) [Mass fraction] 97 % Normal 95-98 [facility] Comment on above: Order Comment: Speci men Type: ARTERIAL BLOOD SPECIMENOrdering Facility: [facility] Address: [address] [place] [address] Performed By: #### A LLBG ####[facility] [id number] [place] [id number] [place] pH (Bld) 7.27 [pH] Low 7.35-7.45 [facility] Comment on above: Order Comment: Speci men Type: ARTERIAL BLOOD SPECIMENOrdering Facility: [facility] Address: [address] [place], [place] [address] Performed By: #### A LLBG ####[facility] [id number] [place] [address] [place] pH adjusted to patient's actual temperature (Bld) 7.28 Low 7.35-7.45 [facility] Comment on above: Order Comment: Speci men Type: ARTERIAL BLOOD SPECIMENOrdering Facility: [facility] Address: [address] [place] [address] Performed By: #### A LLBG ####[facility] [id number] [place] [address] [place] PO2 / FIO2 RATIO 396 mmHg Normal >300 [facility] Comment on above: Order Comment: Speci men Type: ARTERIAL BLOOD SPECIMENOrdering Facility: [facility] Address: [address] [place] [address] Performed By: #### A LLBG ####[facility] [id number] [place] [address] [place] Potassium [Moles/Vol] 3.8 mmol/L Normal 3.5-5.0 [facility] Comment on above: Order Comment: Speci men Type: ARTERIAL BLOOD SPECIMENOrdering Facility: [facility] Address: [address] [place] [address] Performed By: #### A LLBG ####[facility] [id number] [place] [address] [place] Sodium [Moles/Vol] 140 mmol/L Normal 136-144 [facility] Comment on above: Order Comment: Speci men Type: ARTERIAL BLOOD SPECIMENOrdering Facility: [facility] Address: [address] [place] [address] Performed By: #### A LLBG ####[facility] [id number] [place] [address] [place] Base deficit (BldA) [Moles/Vol] -7 mmol/L Low -2-0 [facility] Comment on above: Order Comment: Speci men Type: ARTERIAL BLOOD SPECIMENOrdering Facility: [facility] Address: [address] [place] [address] Performed By: #### A LLBG ####[facility] [id number] [place] [address] [place] Body temperature 98.6 [degF] Normal [facility] Comment on above: Order Comment: Speci men Type: ARTERIAL BLOOD SPECIMENOrdering Facility: [facility] Address: [address] [place] [address] Performed By: #### A LLBG ####[facility] [id number] [place] [address] [place] Calcium.ionized (Bld) [Mass/Vol] 1.22 mmol/L Normal 1.08-1.30 [facility] Comment on above: Order Comment: Speci men Type: ARTERIAL BLOOD SPECIMENOrdering Facility: [facility] Address: [address] [place] [address] Performed By: #### A LLBG ####[facility] [id number] [place] [address] [place] Calcium.ionized adjusted to pH 7.4 (BldA) [Moles/Vol] 1.14 mmol/L Normal 1.08-1.30 [facility] Comment on above: Order Comment: Speci men Type: ARTERIAL BLOOD SPECIMENOrdering Facility: [facility] Address: [address] [place] [address] Performed By: #### A LLBG ####[facility] [id number] [place] [address] [place] Carboxyhemoglobin (BldA) [Mass fraction] 1.3 % Normal 0.0-2.0 [facility] Comment on above: Order Comment: Speci men Type: ARTERIAL BLOOD SPECIMENOrdering Facility: [facility] Address: [address] [place] [address] Result Comment: Carb oxyhemoglobin Reference Range for Smokers: 2.0-8.0% Performed By: #### A LLBG ####[facility] [id number] [place] [address] [place] CO2 (Bld) [Partial pressure] 41 mm Hg Normal 36-46 [facility] Comment on above: Order Comment: Speci men Type: ARTERIAL BLOOD SPECIMENOrdering Facility: [facility] Address: [address] [place] [address] Performed By: #### A LLBG ####[facility] [id number] [place] [address] [place] FIO2 90 % Normal [facility] Comment on above: Order Comment: Speci men Type: ARTERIAL BLOOD SPECIMENOrdering Facility: [facility] Address: [address] [place] [address] Performed By: #### A LLBG ####[facility] [id number] [place] [address] [place] Glucose [Mass/Vol] 178 mg/dL High 60-105 [facility] Comment on above: Order Comment: Speci men Type: ARTERIAL BLOOD SPECIMENOrdering Facility: [facility] Address: [address] [place] [address] Performed By: #### A LLBG ####[facility] [id number] [place] [address] [place] HCO3 (Bld) [Moles/Vol] 19 mmol/L Low 22-26 [facility] Comment on above: Order Comment: Speci men Type: ARTERIAL BLOOD SPECIMENOrdering Facility: [facility] Address: [address] [place] [address] Performed By: #### A LLBG ####[facility] [id number] [place] [address] [place] Hematocrit (Bld) [Volume fraction] 41.0 % Normal 39.0-51.0 [facility] Comment on above: Order Comment: Speci men Type: ARTERIAL BLOOD SPECIMENOrdering Facility: [facility] Address: [address] [place] [address] Performed By: #### A LLBG ####[facility] [id number] [place] [address] [place] Hemoglobin (Bld) [Mass/Vol] 13.4 g/dL Normal 13.0-17.0 [facility] Comment on above: Order Comment: Speci men Type: ARTERIAL BLOOD SPECIMENOrdering Facility: [facility] Address: [address] [place] [address] Performed By: #### A LLBG ####[facility] [id number] [place] [address] [place] Lactate [Moles/Vol] 4.9 mmol/L High 0.5-2.2 [facility] Comment on above: Order Comment: Speci men Type: ARTERIAL BLOOD SPECIMENOrdering Facility: [facility] Address: [address] [place] [address] Performed By: #### A LLBG ####[facility] [id number] [place] [address] [place] Methemoglobin (Bld) [Mass fraction] 1.0 % Normal 0.0-1.5 [facility] Comment on above: Order Comment: Speci men Type: ARTERIAL BLOOD SPECIMENOrdering Facility: [facility] Address: [address] [place] [address] Performed By: #### A LLBG ####[facility] [id number] [place] [address] [place] O2 THERAPY VENT=Ventilator Normal [facility] Comment on above: Order Comment: Speci men Type: ARTERIAL BLOOD SPECIMENOrdering Facility: [facility] Address: [address] [place] [address] Performed By: #### A LLBG ####[facility] [id number] [place] [address] [place] Oxygen (Bld) [Partial pressure] 290 mm Hg High 85-95 [facility] Comment on above: Order Comment: Speci men Type: ARTERIAL BLOOD SPECIMENOrdering Facility: [facility] Address: [address] [place] [address] Performed By: #### A LLBG ####[facility] [id number] [place] [address] [place] Oxyhemoglobin (BldA) [Mass fraction] 98 % Normal 95-98 [facility] Comment on above: Order Comment: Speci men Type: ARTERIAL BLOOD SPECIMENOrdering Facility: [facility] Address: [address] [place] [address] Performed By: #### A LLBG ####[facility] [id number] [place] [address] [place] pH (Bld) 7.29 [pH] Low 7.35-7.45 [facility] Comment on above: Order Comment: Speci men Type: ARTERIAL BLOOD SPECIMENOrdering Facility: [facility] Address: [address] [place] [address] Performed By: #### A LLBG ####[facility] [id number] [place] [address] [place] PO2 / FIO2 RATIO 322 mmHg Normal >300 [facility] Comment on above: Order Comment: Speci men Type: ARTERIAL BLOOD SPECIMENOrdering Facility: [facility] Address: [address] [place] [place] [address] Performed By: #### A LLBG ####[facility] [id number] [place] [address] [place] Potassium [Moles/Vol] 3.9 mmol/L Normal 3.5-5.0 [facility] Comment on above: Order Comment: Speci men Type: ARTERIAL BLOOD SPECIMENOrdering Facility: [facility] Address: [address] [place] [address] Performed By: #### A LLBG ####[facility] [id number] [place] [address] [place] Sodium [Moles/Vol] 140 mmol/L Normal 136-144 [facility] Comment on above: Order Comment: Speci men Type: ARTERIAL BLOOD SPECIMENOrdering Facility: [facility] Address: [address] [place] [address] Performed By: #### A LLBG ####[facility] [id number] [place] [address] [place] Base deficit (BldA) [Moles/Vol] -5 mmol/L Low -2-0 [facility] Comment on above: Order Comment: Speci men Type: ARTERIAL BLOOD SPECIMENOrdering Facility: [facility] Address: [address] [place] [address] Performed By: #### A LLBG ####[facility] [id number] [place] [address] [place] Body temperature 98.6 [degF] Normal [facility] Comment on above: Order Comment: Speci men Type: ARTERIAL BLOOD SPECIMENOrdering Facility: [facility] Address: [address] [place] [address] Performed By: #### A LLBG ####[facility] [id number] [place] [address] [place] Calcium.ionized (Bld) [Mass/Vol] 1.19 mmol/L Normal 1.08-1.30 [facility] Comment on above: Order Comment: Speci men Type: ARTERIAL BLOOD SPECIMENOrdering Facility: [facility] Address: [address] [place] [address] Performed By: #### A LLBG ####[facility] [id number] [place] [address] [place] Calcium.ionized adjusted to pH 7.4 (BldA) [Moles/Vol] 1.14 mmol/L Normal 1.08-1.30 [facility] Comment on above: Order Comment: Speci men Type: ARTERIAL BLOOD SPECIMENOrdering Facility: [facility] Address: [address] [place] [address] Performed By: #### A LLBG ####[facility] [id number] [place] [address] [place] Carboxyhemoglobin (BldA) [Mass fraction] 1.4 % Normal 0.0-2.0 [facility] Comment on above: Order Comment: Speci men Type: ARTERIAL BLOOD SPECIMENOrdering Facility: [facility] Address: [address] [place] [address] Result Comment: Carb oxyhemoglobin Reference Range for Smokers: 2.0-8.0% Performed By: #### A LLBG ####[facility] [id number] [place] [address] [place] CO2 (Bld) [Partial pressure] 38 mm Hg Normal 36-46 [facility] Comment on above: Order Comment: Speci men Type: ARTERIAL BLOOD SPECIMENOrdering Facility: [facility] Address: [address] [place] [address] Performed By: #### A LLBG ####[facility] [id number] [place] [address] [place] FIO2 100 % Normal [facility] Comment on above: Order Comment: Speci men Type: ARTERIAL BLOOD SPECIMENOrdering Facility: [facility] Address: [address] [place] [address] Performed By: #### A LLBG ####[facility] [id number] [place] [address] [place] Glucose [Mass/Vol] 184 mg/dL High 60-105 [facility] Comment on above: Order Comment: Speci men Type: ARTERIAL BLOOD SPECIMENOrdering Facility: [facility] Address: [address] [place] [address] Performed By: #### A LLBG ####[facility] [id number] [place] [address] [place] HCO3 (Bld) [Moles/Vol] 19 mmol/L Low 22-26 [facility] Comment on above: Order Comment: Speci men Type: ARTERIAL BLOOD SPECIMENOrdering Facility: [facility] Address: [address] [place] [address] Performed By: #### A LLBG ####[facility] [id number] [place] [address] [place] Hematocrit (Bld) [Volume fraction] 40.7 % Normal 39.0-51.0 [facility] Comment on above: Order Comment: Speci men Type: ARTERIAL BLOOD SPECIMENOrdering Facility: [facility] Address: [address] [place] [address] Performed By: #### A LLBG ####[facility] [id number] [place] [address] [place] Hemoglobin (Bld) [Mass/Vol] 13.2 g/dL Normal 13.0-17.0 [facility] Comment on above: Order Comment: Speci men Type: ARTERIAL BLOOD SPECIMENOrdering Facility: [facility] Address: [address] [place] [address] Performed By: #### A LLBG ####[facility] [id number] [place] [address] [place] Lactate [Moles/Vol] 4.2 mmol/L High 0.5-2.2 [facility] Comment on above: Order Comment: Speci men Type: ARTERIAL BLOOD SPECIMENOrdering Facility: [facility] Address: [address] [place] [address] Performed By: #### A LLBG ####[facility] [id number] [place] [address] [place] Methemoglobin (Bld) [Mass fraction] 0.8 % Normal 0.0-1.5 [facility] Comment on above: Order Comment: Speci men Type: ARTERIAL BLOOD SPECIMENOrdering Facility: [facility] Address: [address] [place] [address] Performed By: #### A LLBG ####[facility] [id number] [place] [address] [place] O2 THERAPY VENT=Ventilator Normal [facility] Comment on above: Order Comment: Speci men Type: ARTERIAL BLOOD SPECIMENOrdering Facility: [facility] Address: [address] [place] [address] Performed By: #### A LLBG ####[facility] [id number] [place] [address] [place] Oxygen (Bld) [Partial pressure] 334 mm Hg High 85-95 [facility] Comment on above: Order Comment: Speci men Type: ARTERIAL BLOOD SPECIMENOrdering Facility: [facility] Address: [address] [place] [address] Performed By: #### A LLBG ####[facility] [id number] [place] [address] [place] Oxyhemoglobin (BldA) [Mass fraction] 98 % Normal 95-98 [facility] Comment on above: Order Comment: Speci men Type: ARTERIAL BLOOD SPECIMENOrdering Facility: [facility] Address: [address] [place] [address] Performed By: #### A LLBG ####[facility] [id number] [place] [address] [place] pH (Bld) 7.33 [pH] Low 7.35-7.45 [facility] Comment on above: Order Comment: Speci men Type: ARTERIAL BLOOD SPECIMENOrdering Facility: [facility] Address: [address] [place] [address] Performed By: #### A LLBG ####[facility] [id number] [place] [address] [place] PO2 / FIO2 RATIO 334 mmHg Normal >300 [facility] Comment on above: Order Comment: Speci men Type: ARTERIAL BLOOD SPECIMENOrdering Facility: [facility] Address: [address] [place] [address] Performed By: #### A LLBG ####[facility] [id number] [place] [address] [place] Potassium [Moles/Vol] 3.6 mmol/L Normal 3.5-5.0 [facility] Comment on above: Order Comment: Speci men Type: ARTERIAL BLOOD SPECIMENOrdering Facility: [facility] Address: [address] [place] [address] Performed By: #### A LLBG ####[facility] [id number] [place] [address] [place] Sodium [Moles/Vol] 140 mmol/L Normal 136-144 [facility] Comment on above: Order Comment: Speci men Type: ARTERIAL BLOOD SPECIMENOrdering Facility: [facility] Address: [address] [place] [address] Performed By: #### A LLBG ####[facility] [id number] [place] [address] [place] Base deficit (BldA) [Moles/Vol] -5 mmol/L Low -2-0 [facility] Comment on above: Order Comment: Speci men Type: ARTERIAL BLOOD SPECIMENOrdering Facility: [facility] Address: [address] [place] [address] Performed By: #### A LLBG ####[facility] [id number] [place] [address] [place] Body temperature 98.6 [degF] Normal [facility] Comment on above: Order Comment: Speci men Type: ARTERIAL BLOOD SPECIMENOrdering Facility: [facility] Address: [address] [place] [address] Performed By: #### A LLBG ####[facility] [id number] [place] [address] [place] Calcium.ionized (Bld) [Mass/Vol] 1.22 mmol/L Normal 1.08-1.30 [facility] Comment on above: Order Comment: Speci men Type: ARTERIAL BLOOD SPECIMENOrdering Facility: [facility] Address: [address] [place] [address] Performed By: #### A LLBG ####[facility] [id number] [place] [address] [place] Calcium.ionized adjusted to pH 7.4 (BldA) [Moles/Vol] 1.11 mmol/L Normal 1.08-1.30 [facility] Comment on above: Order Comment: Speci men Type: ARTERIAL BLOOD SPECIMENOrdering Facility: [facility] Address: [address] [place] [address] Performed By: #### A LLBG ####[facility] [id number] [place] [address] [place] Carboxyhemoglobin (BldA) [Mass fraction] 1.3 % Normal 0.0-2.0 [facility] Comment on above: Order Comment: Speci men Type: ARTERIAL BLOOD SPECIMENOrdering Facility: [facility] Address: [address] [place] [address] Result Comment: Carb oxyhemoglobin Reference Range for Smokers: 2.0-8.0% Performed By: #### A LLBG ####[facility] [id number] [place] [address] [place] CO2 (Bld) [Partial pressure] 54 mm Hg High 36-46 [facility] Comment on above: Order Comment: Speci men Type: ARTERIAL BLOOD SPECIMENOrdering Facility: [facility] Address: [address] [place] [address] Performed By: #### A LLBG ####[facility] [id number] [place] [address] [place] FIO2 100 % Normal [facility] Comment on above: Order Comment: Speci men Type: ARTERIAL BLOOD SPECIMENOrdering Facility: [facility] Address: [address] [place] [address] Performed By: #### A LLBG ####[facility] [id number] [place] [address] [place] Glucose [Mass/Vol] 198 mg/dL High 60-105 [facility] Comment on above: Order Comment: Speci men Type: ARTERIAL BLOOD SPECIMENOrdering Facility: [facility] Address: [address] [place] [address] Performed By: #### A LLBG ####[facility] [id number] [place] [address] [place] HCO3 (Bld) [Moles/Vol] 22 mmol/L Normal 22-26 [facility] Comment on above: Order Comment: Speci men Type: ARTERIAL BLOOD SPECIMENOrdering Facility: [facility] Address: [address] [place] [address] Performed By: #### A LLBG ####[facility] [id number] [place] [address] [place] Hematocrit (Bld) [Volume fraction] 39.3 % Normal 39.0-51.0 [facility] Comment on above: Order Comment: Speci men Type: ARTERIAL BLOOD SPECIMENOrdering Facility: [facility] Address: [address] [place] [address] Performed By: #### A LLBG ####[facility] [id number] [place] [address] [place] Hemoglobin (Bld) [Mass/Vol] 12.8 g/dL Low 13.0-17.0 [facility] Comment on above: Order Comment: Speci men Type: ARTERIAL BLOOD SPECIMENOrdering Facility: [facility] Address: [address] [place] [address] Performed By: #### A LLBG ####[facility] [id number] [place] [address] [place] Lactate [Moles/Vol] 3.7 mmol/L High 0.5-2.2 [facility] Comment on above: Order Comment: Speci men Type: ARTERIAL BLOOD SPECIMENOrdering Facility: [facility] Address: [address] [place] [address] Performed By: #### A LLBG ####[facility] [id number] [place] [address] [place] Methemoglobin (Bld) [Mass fraction] 0.8 % Normal 0.0-1.5 [facility] Comment on above: Order Comment: Speci men Type: ARTERIAL BLOOD SPECIMENOrdering Facility: [facility] Address: [address] [place] [address] Performed By: #### A LLBG ####[facility] [id number] [place] [address] [place] O2 THERAPY VENT=Ventilator Normal [facility] Comment on above: Order Comment: Speci men Type: ARTERIAL BLOOD SPECIMENOrdering Facility: [facility] Address: [address] [place] [address] Performed By: #### A LLBG ####[facility] [id number] [place] [address] [place] Oxygen (Bld) [Partial pressure] 135 mm Hg High 85-95 [facility] Comment on above: Order Comment: Speci men Type: ARTERIAL BLOOD SPECIMENOrdering Facility: [facility] Address: [address] [place] [address] Performed By: #### A LLBG ####[facility] [id number] [place] [address] [place] Oxyhemoglobin (BldA) [Mass fraction] 96 % Normal 95-98 [facility] Comment on above: Order Comment: Speci men Type: ARTERIAL BLOOD SPECIMENOrdering Facility: [facility] Address: [address] [place] [address] Performed By: #### A LLBG ####[facility] [id number] [place] [address] [place] pH (Bld) 7.24 [pH] Low 7.35-7.45 [facility] Comment on above: Order Comment: Speci men Type: ARTERIAL BLOOD SPECIMENOrdering Facility: [facility] Address: [address] [place] [address] Performed By: #### A LLBG ####[facility] [id number] [place] [address] [place] PO2 / FIO2 RATIO 135 mmHg Low >300 [facility] Comment on above: Order Comment: Speci men Type: ARTERIAL BLOOD SPECIMENOrdering Facility: [facility] Address: [address] [place], [place] [address] Performed By: #### A LLBG ####[facility] [id number] [place] [address] [place] Potassium [Moles/Vol] 3.9 mmol/L Normal 3.5-5.0 [facility] Comment on above: Order Comment: Speci men Type: ARTERIAL BLOOD SPECIMENOrdering Facility: [facility] Address: [address] [place] [address] Performed By: #### A LLBG ####[facility] [id number] [place] [address] [place] Sodium [Moles/Vol] 140 mmol/L Normal 136-144 [facility] Comment on above: Order Comment: Speci men Type: ARTERIAL BLOOD SPECIMENOrdering Facility: [facility] Address: [address] [place] [address] Performed By: #### A LLBG ####[facility] [id number] [place] [address] [place] Base deficit (BldA) [Moles/Vol] -2 mmol/L Normal -2-0 [facility] Comment on above: Order Comment: Speci men Type: ARTERIAL BLOOD SPECIMENOrdering Facility: [facility] Address: [address] [place] [address] Performed By: #### A LLBG ####[facility] [id number] [place] [address] [place] Body temperature 98.6 [degF] Normal [facility] Comment on above: Order Comment: Speci men Type: ARTERIAL BLOOD SPECIMENOrdering Facility: [facility] Address: [address] [place] [address] Performed By: #### A LLBG ####[facility] [id number] [place] [address] [place] Calcium.ionized (Bld) [Mass/Vol] 1.23 mmol/L Normal 1.08-1.30 [facility] Comment on above: Order Comment: Speci men Type: ARTERIAL BLOOD SPECIMENOrdering Facility: [facility] Address: [address] [place] [address] Performed By: #### A LLBG ####[facility] [id number] [place] [address] [place] Calcium.ionized adjusted to pH 7.4 (BldA) [Moles/Vol] 1.18 mmol/L Normal 1.08-1.30 [facility] Comment on above: Order Comment: Speci men Type: ARTERIAL BLOOD SPECIMENOrdering Facility: [facility] Address: [address] [place] [address] Performed By: #### A LLBG ####[facility] [id number] [place] [address] [place] Carboxyhemoglobin (BldA) [Mass fraction] 1.3 % Normal 0.0-2.0 [facility] Comment on above: Order Comment: Speci men Type: ARTERIAL BLOOD SPECIMENOrdering Facility: [facility] Address: [address] [place] [address] Result Comment: Carb oxyhemoglobin Reference Range for Smokers: 2.0-8.0% Performed By: #### A LLBG ####[facility] [id number] [place] [address] [place] CO2 (Bld) [Partial pressure] 48 mm Hg High 36-46 [facility] Comment on above: Order Comment: Speci men Type: ARTERIAL BLOOD SPECIMENOrdering Facility: [facility] Address: [address] [place] [address] Performed By: #### A LLBG ####[facility] [id number] [place] [address] [place] Glucose [Mass/Vol] 115 mg/dL High 60-105 [facility] Comment on above: Order Comment: Speci men Type: ARTERIAL BLOOD SPECIMENOrdering Facility: [facility] Address: [address] [place] [address] Performed By: #### A LLBG ####[facility] [id number] [place] [address] [place] HCO3 (Bld) [Moles/Vol] 24 mmol/L Normal 22-26 [facility] Comment on above: Order Comment: Speci men Type: ARTERIAL BLOOD SPECIMENOrdering Facility: [facility] Address: [address] [place] [address] Performed By: #### A LLBG ####[facility] [id number] [place] [address] [place] Hematocrit (Bld) [Volume fraction] 37.4 % Low 39.0-51.0 [facility] Comment on above: Order Comment: Speci men Type: ARTERIAL BLOOD SPECIMENOrdering Facility: [facility] Address: [address] [place] [address] Performed By: #### A LLBG ####[facility] [id number] [place] [address] [place] Hemoglobin (Bld) [Mass/Vol] 12.1 g/dL Low 13.0-17.0 [facility] Comment on above: Order Comment: Speci men Type: ARTERIAL BLOOD SPECIMENOrdering Facility: [facility] Address: [address] [place] [address] Performed By: #### A LLBG ####[facility] [id number] [place] [address] [place] Lactate [Moles/Vol] 2.1 mmol/L Normal 0.5-2.2 [facility] Comment on above: Order Comment: Speci men Type: ARTERIAL BLOOD SPECIMENOrdering Facility: [facility] [facility] Address: [address] [place] [address] Performed By: #### A LLBG ####[facility] [id number] [place] [address] [place] Methemoglobin (Bld) [Mass fraction] 1.0 % Normal 0.0-1.5 [facility] Comment on above: Order Comment: Speci men Type: ARTERIAL BLOOD SPECIMENOrdering Facility: [facility] Address: [address] [place] [address] Performed By: #### A LLBG ####[facility] [id number] [place] [address] [place] O2 THERAPY VENT=Ventilator Normal [facility] Comment on above: Order Comment: Speci men Type: ARTERIAL BLOOD SPECIMENOrdering Facility: [facility] Address: [address] [place] [address] Performed By: #### A LLBG ####[facility] [id number] [place] [address] [place] Oxygen (Bld) [Partial pressure] 167 mm Hg High 85-95 [facility] Comment on above: Order Comment: Speci men Type: ARTERIAL BLOOD SPECIMENOrdering Facility: [facility] Address: [address] [place] [address] Performed By: #### A LLBG ####[facility] [id number] [place] [address] [place] Oxyhemoglobin (BldA) [Mass fraction] 97 % Normal 95-98 [facility] Comment on above: Order Comment: Speci men Type: ARTERIAL BLOOD SPECIMENOrdering Facility: [facility] Address: [address] [place] [address] Performed By: #### A LLBG ####[facility] [id number] [place] [address] [place] pH (Bld) 7.32 [pH] Low 7.35-7.45 [facility] Comment on above: Order Comment: Speci men Type: ARTERIAL BLOOD SPECIMENOrdering Facility: [facility] Address: [address] [place] [address] Performed By: #### A LLBG ####[facility] [id number] [place] [address] [place] Potassium [Moles/Vol] 4.2 mmol/L Normal 3.5-5.0 [facility] Comment on above: Order Comment: Speci men Type: ARTERIAL BLOOD SPECIMENOrdering Facility: [facility] Address: [address] [place] [address] Performed By: #### A LLBG ####[facility] [id number] [place] [address] [place] Sodium [Moles/Vol] 139 mmol/L Normal 136-144 [facility] Comment on above: Order Comment: Speci men Type: ARTERIAL BLOOD SPECIMENOrdering Facility: [facility] Address: [address] [place] [address] Performed By: #### A LLBG ####[facility] [id number] [place] [address] [place] Base deficit (BldA) [Moles/Vol] -1 mmol/L Normal -2-0 [facility] Comment on above: Order Comment: Speci men Type: ARTERIAL BLOOD SPECIMENOrdering Facility: [facility] Address: [address] [place] [address] Performed By: #### A LLBG ####[facility] [id number] [place] [address] [place] Calcium.ionized (Bld) [Mass/Vol] 1.23 mmol/L Normal 1.08-1.30 [facility] Comment on above: Order Comment: Speci men Type: ARTERIAL BLOOD SPECIMENOrdering Facility: [facility] Address: [address] [place] [address] Performed By: #### A LLBG ####[facility] [id number] [place] [address] [place] Calcium.ionized adjusted to pH 7.4 (BldA) [Moles/Vol] 1.21 mmol/L Normal 1.08-1.30 [facility] Comment on above: Order Comment: Speci men Type: ARTERIAL BLOOD SPECIMENOrdering Facility: [facility] Address: [address] [place] [address] Performed By: #### A LLBG ####[facility] [id number] [place] [address] [place] Carboxyhemoglobin (BldA) [Mass fraction] 1.9 % Normal 0.0-2.0 [facility] Comment on above: Order Comment: Speci men Type: ARTERIAL BLOOD SPECIMENOrdering Facility: [facility] Address: [address] [place] [address] Result Comment: Carb oxyhemoglobin Reference Range for Smokers: 2.0-8.0% Performed By: #### A LLBG ####[facility] [id number] [place] [address] [place] CO2 (Bld) [Partial pressure] 43 mm Hg Normal 36-46 [facility] Comment on above: Order Comment: Speci men Type: ARTERIAL BLOOD SPECIMENOrdering Facility: [facility] Address: [address] [place] [address] Performed By: #### A LLBG ####[facility] [id number] [address] [place] CO2 adjusted to patient's actual temperature (Bld) [Partial pressure] 43 mmHg Normal 36-46 [facility] Comment on above: Order Comment: Speci men Type: ARTERIAL BLOOD SPECIMENOrdering Facility: [facility] Address: [address] [place] [address] Performed By: #### A LLBG ####[facility] [id number] [place] [address] [place] Glucose [Mass/Vol] 133 mg/dL High 60-105 [facility] Comment on above: Order Comment: Speci men Type: ARTERIAL BLOOD SPECIMENOrdering Facility: [facility] Address: [address] [place] [address] Performed By: #### A LLBG ####[facility] [id number] [place] [address] [place] HCO3 (Bld) [Moles/Vol] 24 mmol/L Normal 22-26 [facility] Comment on above: Order Comment: Speci men Type: ARTERIAL BLOOD SPECIMENOrdering Facility: [facility] Address: [address] [place] [address] Performed By: #### A LLBG ####[facility] [id number] [place] [address] [place] Hematocrit (Bld) [Volume fraction] 36.4 % Low 39.0-51.0 [facility] Comment on above: Order Comment: Speci men Type: ARTERIAL BLOOD SPECIMENOrdering Facility: [facility] Address: [address] [place] [address] Performed By: #### A LLBG ####[facility] [id number] [place] [address] [place] Hemoglobin (Bld) [Mass/Vol] 11.8 g/dL Low 13.0-17.0 [facility] Comment on above: Order Comment: Speci men Type: ARTERIAL BLOOD SPECIMENOrdering Facility: [facility] Address: [address] [place] [address] Performed By: #### A LLBG ####[facility] [id number] [place] [address] [place] Lactate [Moles/Vol] 2.4 mmol/L High 0.5-2.2 [facility] Comment on above: Order Comment: Speci men Type: ARTERIAL BLOOD SPECIMENOrdering Facility: [facility] Address: [address] [place] [address] Performed By: #### A LLBG ####[facility] [id number] [place] [address] [place] Methemoglobin (Bld) [Mass fraction] 1.0 % Normal 0.0-1.5 [facility] Comment on above: Order Comment: Speci men Type: ARTERIAL BLOOD SPECIMENOrdering Facility: [facility] Address: [address] [place], [place] [id number] Performed By: #### A LLBG ####[facility] [id number] [place] [address] [place] Oxygen (Bld) [Partial pressure] 246 mm Hg High 85-95 [facility] Comment on above: Order Comment: Speci men Type: ARTERIAL BLOOD SPECIMENOrdering Facility: [facility] Address: [address] [place] [id number] Performed By: #### A LLBG ####[facility] [id number] [place] [address] [place] Oxygen adjusted to patient's actual temperature (Bld) [Partial pressure] 246 mmHg High 85-95 [facility] Comment on above: Order Comment: Speci men Type: ARTERIAL BLOOD SPECIMENOrdering Facility: [facility] Address: [address] [place] [address] Performed By: #### A LLBG ####[facility] [id number] [place] [address] [place] Oxyhemoglobin (BldA) [Mass fraction] 97 % Normal 95-98 [facility] Comment on above: Order Comment: Speci men Type: ARTERIAL BLOOD SPECIMENOrdering Facility: [facility] Address: [address] [place] [address] Performed By: #### A LLBG ####[facility] [id number] [place] [id number] [place] pH (Bld) 7.36 [pH] Normal 7.35-7.45 [facility] Comment on above: Order Comment: Speci men Type: ARTERIAL BLOOD SPECIMENOrdering Facility: [facility] Address: [address] [place], [place] [address] Performed By: #### A LLBG ####[facility] [id number] [place] [id number] [place] pH adjusted to patient's actual temperature (Bld) 7.36 Normal 7.35-7.45 [facility] Comment on above: Order Comment: Speci men Type: ARTERIAL BLOOD SPECIMENOrdering Facility: [facility] Address: [address] [place], [place] [address] Performed By: #### A LLBG ####[facility] [id number] [place] [id number] [place] Potassium [Moles/Vol] 4.6 mmol/L Normal 3.5-5.0 [facility] Comment on above: Order Comment: Speci men Type: ARTERIAL BLOOD SPECIMENOrdering Facility: [facility] Address: [address] [place] [address] Performed By: #### A LLBG ####[facility] [id number] [place] [address] [place] Sodium [Moles/Vol] 140 mmol/L Normal 136-144 [facility] Comment on above: Order Comment: Speci men Type: ARTERIAL BLOOD SPECIMENOrdering Facility: [facility] Address: [address] [place] [address] Performed By: #### A LLBG ####[facility] [id number] [place] [address] [place] Base deficit (BldA) [Moles/Vol] -1 mmol/L Normal -2-0 [facility] Comment on above: Order Comment: Speci men Type: ARTERIAL BLOOD SPECIMENOrdering Facility: [facility] Address: [address] [place] [address] Performed By: #### A LLBG ####[facility] [id number] [place] [address] [place] Calcium.ionized (Bld) [Mass/Vol] 1.17 mmol/L Normal 1.08-1.30 [facility] Comment on above: Order Comment: Speci men Type: ARTERIAL BLOOD SPECIMENOrdering Facility: [facility] Address: [address] [place] [address] Performed By: #### A LLBG ####[facility] [id number] [place] [address] [place] Calcium.ionized adjusted to pH 7.4 (BldA) [Moles/Vol] 1.16 mmol/L Normal 1.08-1.30 [facility] Comment on above: Order Comment: Speci men Type: ARTERIAL BLOOD SPECIMENOrdering Facility: [facility] Address: [address] [place] [address] Performed By: #### A LLBG ####[facility] [id number] [address] [address] [place] Carboxyhemoglobin (BldA) [Mass fraction] 1.6 % Normal 0.0-2.0 [facility] Comment on above: Order Comment: Speci men Type: ARTERIAL BLOOD SPECIMENOrdering Facility: [facility] Address: [address] [place] [address] Result Comment: Carb oxyhemoglobin Reference Range for Smokers: 2.0-8.0% Performed By: #### A LLBG ####[facility] [id number] [place] [address] [place] CO2 (Bld) [Partial pressure] 41 mm Hg Normal 36-46 [facility] Comment on above: Order Comment: Speci men Type: ARTERIAL BLOOD SPECIMENOrdering Facility: [facility] Address: [address] [place] [address] Performed By: #### A LLBG ####[facility] [id number] [place] [address] [place] CO2 adjusted to patient's actual temperature (Bld) [Partial pressure] 41 mmHg Normal 36-46 [facility] Comment on above: Order Comment: Speci men Type: ARTERIAL BLOOD SPECIMENOrdering Facility: [facility] Address: [address] [place] [address] Performed By: #### A LLBG ####[facility] [id number] [place] [address] [place] Glucose [Mass/Vol] 158 mg/dL High 60-105 [facility] Comment on above: Order Comment: Speci men Type: ARTERIAL BLOOD SPECIMENOrdering Facility: [facility] Address: [address] [place] [address] Performed By: #### A LLBG ####[facility] [id number] [place] [address] [place] HCO3 (Bld) [Moles/Vol] 24 mmol/L Normal 22-26 [facility] Comment on above: Order Comment: Speci men Type: ARTERIAL BLOOD SPECIMENOrdering Facility: [facility] Address: [address] [place] [address] Performed By: #### A LLBG ####[facility] [id number] [place] [address] [place] Hematocrit (Bld) [Volume fraction] 31.8 % Low 39.0-51.0 [facility] Comment on above: Order Comment: Speci men Type: ARTERIAL BLOOD SPECIMENOrdering Facility: [facility] Address: [address] [place] [address] Performed By: #### A LLBG ####[facility] [id number] [place] [address] [place] Hemoglobin (Bld) [Mass/Vol] 10.3 g/dL Low 13.0-17.0 [facility] Comment on above: Order Comment: Speci men Type: ARTERIAL BLOOD SPECIMENOrdering Facility: [facility] Address: [address] [place] [address] Performed By: #### A LLBG ####[facility] [id number] [place] [address] [place] Lactate [Moles/Vol] 2.8 mmol/L High 0.5-2.2 [facility] Comment on above: Order Comment: Speci men Type: ARTERIAL BLOOD SPECIMENOrdering Facility: [facility] Address: [address] [place] [address] Performed By: #### A LLBG ####[facility] [id number] [place] [address] [place] Methemoglobin (Bld) [Mass fraction] 0.9 % Normal 0.0-1.5 [facility] Comment on above: Order Comment: Speci men Type: ARTERIAL BLOOD SPECIMENOrdering Facility: [facility] Address: [address] [place] [address] Performed By: #### A LLBG ####[facility] [id number] [place] [address] [place] Oxygen (Bld) [Partial pressure] 277 mm Hg High 85-95 [facility] Comment on above: Order Comment: Speci men Type: ARTERIAL BLOOD SPECIMENOrdering Facility: [facility] Address: [address] [place] [address] Performed By: #### A LLBG ####[facility] [id number] [place] [address] [place] Oxygen adjusted to patient's actual temperature (Bld) [Partial pressure] 277 mmHg High 85-95 [facility] Comment on above: Order Comment: Speci men Type: ARTERIAL BLOOD SPECIMENOrdering Facility: [facility] Address: [address] [place], [place] [address] Performed By: #### A LLBG ####[facility] [id number] [place] [id number] [place] Oxyhemoglobin (BldA) [Mass fraction] 98 % Normal 95-98 [facility] Comment on above: Order Comment: Speci men Type: ARTERIAL BLOOD SPECIMENOrdering Facility: [facility] Address: [address] [place] [address] Performed By: #### A LLBG ####[facility] [id number] [place] [address] [place] pH (Bld) 7.38 [pH] Normal 7.35-7.45 [facility] Comment on above: Order Comment: Speci men Type: ARTERIAL BLOOD SPECIMENOrdering Facility: [facility] Address: [address] [place] [address] Performed By: #### A LLBG ####[facility] [id number] [place] [address] [place] pH adjusted to patient's actual temperature (Bld) 7.38 Normal 7.35-7.45 [facility] Comment on above: Order Comment: Speci men Type: ARTERIAL BLOOD SPECIMENOrdering Facility: [facility] Address: [address] [place] [address] Performed By: #### A LLBG ####[facility] [id number] [place] [address] [place] Potassium [Moles/Vol] 4.9 mmol/L Normal 3.5-5.0 [facility] Comment on above: Order Comment: Speci men Type: ARTERIAL BLOOD SPECIMENOrdering Facility: [facility] Address: [address] [place] [address] Performed By: #### A LLBG ####[facility] [id number] [place] [address] [place] Sodium [Moles/Vol] 137 mmol/L Normal 136-144 [facility] Comment on above: Order Comment: Speci men Type: ARTERIAL BLOOD SPECIMENOrdering Facility: [facility] Address: [address] [place] [address] Performed By: #### A LLBG ####[facility] [id number] [place] [address] [place] Base excess Calc (Bld) [Moles/Vol] 0 mmol/L Normal 0-2 [facility] Comment on above: Order Comment: Speci men Type: ARTERIAL BLOOD SPECIMENOrdering Facility: [facility] Address: [address] [place] [address] Performed By: #### A LLBG ####[facility] [id number] [place] [address] [place] Calcium.ionized (Bld) [Mass/Vol] 1.27 mmol/L Normal 1.08-1.30 [facility] Comment on above: Order Comment: Speci men Type: ARTERIAL BLOOD SPECIMENOrdering Facility: [facility] Address: [address] [place] [address] Performed By: #### A LLBG ####[facility] [id number] [place] [address] [place] Calcium.ionized adjusted to pH 7.4 (BldA) [Moles/Vol] 1.24 mmol/L Normal 1.08-1.30 [facility] Comment on above: Order Comment: Speci men Type: ARTERIAL BLOOD SPECIMENOrdering Facility: [facility] Address: [address] [place] [address] Performed By: #### A LLBG ####[facility] [id number] [place] [address] [place] Carboxyhemoglobin (BldA) [Mass fraction] 1.8 % Normal 0.0-2.0 [facility] Comment on above: Order Comment: Speci men Type: ARTERIAL BLOOD SPECIMENOrdering Facility: [facility] Address: [address] [place] [address] Result Comment: Carb oxyhemoglobin Reference Range for Smokers: 2.0-8.0% Performed By: #### A LLBG ####[facility] [id number] [place] [address] [place] CO2 (Bld) [Partial pressure] 47 mm Hg High 36-46 [facility] Comment on above: Order Comment: Speci men Type: ARTERIAL BLOOD SPECIMENOrdering Facility: [facility] Address: [address] [place] [address] Performed By: #### A LLBG ####[facility] [id number] [place] [address] [place] CO2 adjusted to patient's actual temperature (Bld) [Partial pressure] 47 mmHg High 36-46 [facility] Comment on above: Order Comment: Speci men Type: ARTERIAL BLOOD SPECIMENOrdering Facility: [facility] Address: [address] [place] [address] Performed By: #### A LLBG ####[facility] [id number] [place] [address] [place] Glucose [Mass/Vol] 107 mg/dL High 60-105 [facility] Comment on above: Order Comment: Speci men Type: ARTERIAL BLOOD SPECIMENOrdering Facility: [facility] Address: [address] [place] [address] Performed By: #### A LLBG ####[facility] [id number] [place] [address] [place] HCO3 (Bld) [Moles/Vol] 26 mmol/L Normal 22-26 [facility] Comment on above: Order Comment: Speci men Type: ARTERIAL BLOOD SPECIMENOrdering Facility: [facility] Address: [address] [place] [address] Performed By: #### A LLBG ####[facility] [id number] [place] [address] [place] Hematocrit (Bld) [Volume fraction] 37.6 % Low 39.0-51.0 [facility] Comment on above: Order Comment: Speci men Type: ARTERIAL BLOOD SPECIMENOrdering Facility: [facility] Address: [address] [place] [address] Performed By: #### A LLBG ####[facility] [id number] [place] [address] [place] Hemoglobin (Bld) [Mass/Vol] 12.2 g/dL Low 13.0-17.0 [facility] Comment on above: Order Comment: Speci men Type: ARTERIAL BLOOD SPECIMENOrdering Facility: [facility] Address: [address] [place] [address] Performed By: #### A LLBG ####[facility] [id number] [place] [id number] [place] Lactate [Moles/Vol] 1.8 mmol/L Normal 0.5-2.2 [facility] Comment on above: Order Comment: Speci men Type: ARTERIAL BLOOD SPECIMENOrdering Facility: [facility] Address: [address] [place] [address] Performed By: #### A LLBG ####[facility] [id number] [place] [address] [place] Methemoglobin (Bld) [Mass fraction] 0.7 % Normal 0.0-1.5 [facility] Comment on above: Order Comment: Speci men Type: ARTERIAL BLOOD SPECIMENOrdering Facility: [facility] Address: [address] [place] [address] Performed By: #### A LLBG ####[facility] [id number] [place] [address] [place] Oxygen (Bld) [Partial pressure] 121 mm Hg High 85-95 [facility] Comment on above: Order Comment: Speci men Type: ARTERIAL BLOOD SPECIMENOrdering Facility: [facility] Address: [address] [place] [address] Performed By: #### A LLBG ####[facility] [id number] [place] [address] [place] Oxygen adjusted to patient's actual temperature (Bld) [Partial pressure] 121 mmHg High 85-95 [facility] Comment on above: Order Comment: Speci men Type: ARTERIAL BLOOD SPECIMENOrdering Facility: [facility] Address: [address] [place] [address] Performed By: #### A LLBG ####[facility] [id number] [place] [id number] [place] Oxyhemoglobin (BldA) [Mass fraction] 97 % Normal 95-98 [facility] Comment on above: Order Comment: Speci men Type: ARTERIAL BLOOD SPECIMENOrdering Facility: [facility] Address: [address] [place] [address] Performed By: #### A LLBG ####[facility] [id number] [place] [address] [place] pH (Bld) 7.35 [pH] Normal 7.35-7.45 [facility] Comment on above: Order Comment: Speci men Type: ARTERIAL BLOOD SPECIMENOrdering Facility: [facility] Address: [address] [place] [address] Performed By: #### A LLBG ####[facility] [id number] [place] [address] [place] pH adjusted to patient's actual temperature (Bld) 7.35 Normal 7.35-7.45 [facility] Comment on above: Order Comment: Speci men Type: ARTERIAL BLOOD SPECIMENOrdering Facility: [facility] Address: [address] [place] [address] Performed By: #### A LLBG ####[facility] [id number] [place] [address] [place] Potassium [Moles/Vol] 4.3 mmol/L Normal 3.5-5.0 [facility] Comment on above: Order Comment: Speci men Type: ARTERIAL BLOOD SPECIMENOrdering Facility: [facility] Address: [address] [place] [address] Performed By: #### A LLBG ####[facility] [id number] [place] [address] [place] Sodium [Moles/Vol] 141 mmol/L Normal 136-144 [facility] Comment on above: Order Comment: Speci men Type: ARTERIAL BLOOD SPECIMENOrdering Facility: [facility] Address: [address] [place] [address] Performed By: #### A LLBG ####[facility] [id number] [place] [address] [place] ARTERIAL BLOOD GASES WITH IO NIZED MAGNESIUMon 01-23-2024 Base deficit (BldA) [Moles/Vol] -1 mmol/L Normal -2-0 [facility] Comment on above: Order Comment: Speci men Type: ARTERIAL BLOOD SPECIMENOrdering Facility: [facility] Address: [address] [place] [address] Performed By: #### A LLMG ####[facility] [id number] [place] [address] [place] Calcium.ionized (Bld) [Mass/Vol] 1.22 mmol/L Normal 1.08-1.30 [facility] Comment on above: Order Comment: Speci men Type: ARTERIAL BLOOD SPECIMENOrdering Facility: [facility] Address: [address] [place] [address] Performed By: #### A LLMG ####[facility] [id number] [place] [address] [place] Calcium.ionized adjusted to pH 7.4 (BldA) [Moles/Vol] 1.19 mmol/L Normal 1.08-1.30 [facility] Comment on above: Order Comment: Speci men Type: ARTERIAL BLOOD SPECIMENOrdering Facility: [facility] Address: [address] [place] [address] Performed By: #### A LLMG ####[facility] [id number] [place] [address] [place] Carboxyhemoglobin (BldA) [Mass fraction] 1.7 % Normal 0.0-2.0 [facility] Comment on above: Order Comment: Speci men Type: ARTERIAL BLOOD SPECIMENOrdering Facility: [facility] Address: [address] [place] [address] Result Comment: Carb oxyhemoglobin Reference Range for Smokers: 2.0-8.0% Performed By: #### A LLMG ####[facility] [id number] [place] [address] [place] CO2 (Bld) [Partial pressure] 46 mm Hg Normal 36-46 [facility] Comment on above: Order Comment: Speci men Type: ARTERIAL BLOOD SPECIMENOrdering Facility: [facility] Address: [address] [place] [address] Performed By: #### A LLMG ####[facility] [id number] [place] [address] [place] CO2 adjusted to patient's actual temperature (Bld) [Partial pressure] 46 mmHg Normal 36-46 [facility] Comment on above: Order Comment: Speci men Type: ARTERIAL BLOOD SPECIMENOrdering Facility: [facility] Address: [address] [place] [address] Performed By: #### A LLMG ####[facility] [id number] [place] [address] [place] HCO3 (Bld) [Moles/Vol] 25 mmol/L Normal 22-26 [facility] Comment on above: Order Comment: Speci men Type: ARTERIAL BLOOD SPECIMENOrdering Facility: [facility] Address: [address] [place] [address] Performed By: #### A LLMG ####[facility] [id number] [place] [address] [place] Hematocrit (Bld) [Volume fraction] 33.9 % Low 39.0-51.0 [facility] Comment on above: Order Comment: Speci men Type: ARTERIAL BLOOD SPECIMENOrdering Facility: [facility] Address: [address] [place] [address] Performed By: #### A LLMG ####[facility] [id number] [place] [address] [place] Hemoglobin (Bld) [Mass/Vol] 11.0 g/dL Low 13.0-17.0 [facility] Comment on above: Order Comment: Speci men Type: ARTERIAL BLOOD SPECIMENOrdering Facility: [facility] Address: [address] [place] [address] Performed By: #### A LLMG ####[facility] [id number] [place] [address] [place] Lactate [Moles/Vol] 2.3 mmol/L High 0.5-2.2 [facility] Comment on above: Order Comment: Speci men Type: ARTERIAL BLOOD SPECIMENOrdering Facility: [facility] Address: [address] [place] [address] Performed By: #### A LLMG ####[facility] [id number] [place] [address] [place] Magnesium [Moles/Vol] 0.63 mmol/L High 0.45-0.60 [facility] Comment on above: Order Comment: Speci men Type: ARTERIAL BLOOD SPECIMENOrdering Facility: [facility] Address: [address] [place] [address] Performed By: #### A LLMG ####[facility] [id number] [place] [address] [place] Methemoglobin (Bld) [Mass fraction] 0.7 % Normal 0.0-1.5 [facility] Comment on above: Order Comment: Speci men Type: ARTERIAL BLOOD SPECIMENOrdering Facility: [facility] Address: [address] [place] [address] Performed By: #### A LLMG ####[facility] [id number] [place] [address] [place] Oxygen (Bld) [Partial pressure] 322 mm Hg High 85-95 [facility] Comment on above: Order Comment: Speci men Type: ARTERIAL BLOOD SPECIMENOrdering Facility: [facility] Address: [address] [place] [address] Performed By: #### A LLMG ####[facility] [id number] [place] [address] [place] Oxygen adjusted to patient's actual temperature (Bld) [Partial pressure] 322 mmHg High 85-95 [facility] Comment on above: Order Comment: Speci men Type: ARTERIAL BLOOD SPECIMENOrdering Facility: [facility] Address: [address] [place] [address] Performed By: #### A LLMG ####[facility] [id number] [place] [address] [place] Oxyhemoglobin (BldA) [Mass fraction] 98 % Normal 95-98 [facility] Comment on above: Order Comment: Speci men Type: ARTERIAL BLOOD SPECIMENOrdering Facility: [facility] Address: [address] [place] [address] Performed By: #### A LLMG ####[facility] [id number] [place] [address] [place] pH (Bld) 7.35 [pH] Normal 7.35-7.45 [facility] Comment on above: Order Comment: Speci men Type: ARTERIAL BLOOD SPECIMENOrdering Facility: [facility] Address: [address] [place] [address] Performed By: #### A LLMG ####[facility] [id number] [place] [address] [place] pH adjusted to patient's actual temperature (Bld) 7.35 Normal 7.35-7.45 [facility] Comment on above: Order Comment: Speci men Type: ARTERIAL BLOOD SPECIMENOrdering Facility: [facility] Address: [address] [place] [address] Performed By: #### A LLMG ####[facility] [id number] [place] [address] [place] CARDIAC IMPLANTABLE DEVICE C HECKOrdered By: Kristofer Barraza on 01-23-2024 Battery Remaining Longevity 11.0 [facility] Work Phone: Battery Status KEVIN [facility] Work Phone: David Setting AT Mode Switch Rate 170 [facility] Work Phone: David Setting Lower Rate Limit 90 [facility] Work Phone: David Setting Maximum Sensor Rate 115 [facility] Work Phone: David Setting Maximum Tracking Rate 130 [facility] Work Phone: David Setting Mode (NBG Code) DDDR [facility] Work Phone: David Setting PAV Delay 180 [facility] Work Phone: David Setting NORIS Delay 180 [facility] Work Phone: Date Time Interrogation Session [facility] Work Phone: Implantable Lead Location Right Ventricle [facility] Work Phone: Implantable Lead Location Right Atrium [facility] Work Phone: Implantable Lead Model 7742 [facility] Work Phone: Implantable Lead Model 7741 [facility] Work Phone: Implantable Lead Serial Number [id number] [facility] Work Phone: Implantable Lead Serial Number [id number] [facility] Work Phone: Implantable Pulse Generator Implant Date [id number] [facility] Work Phone: 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 [employer] [facility] Work Phone: Implantable Pulse Generator Model L111 [facility] Work Phone: Implantable Pulse Generator Serial Number [id number] [facility] Work Phone: Implantable Pulse Generator Type Pacemaker [facility] Work Phone: Lead Channel Impedance Value 594 [facility] Work Phone: Lead Channel Impedance Value 598 [facility] Work Phone: Lead Channel Pacing Threshold Amplitude 1.300 [facility] Work Phone: Lead Channel Pacing Threshold Amplitude 1.400 [facility] Work Phone: Lead Channel Pacing Threshold Pulse Width 0.9 [facility] Work Phone: Lead Channel Pacing Threshold Pulse Width 0.4 [facility] Work Phone: Lead Channel Sensing Intrinsic Amplitude 1.100 [facility] Work Phone: Lead Channel Sensing Intrinsic Amplitude 8.100 [facility] Work Phone: Lead Channel Setting Pacing Amplitude 3.000 [facility] Work Phone: Lead Channel Setting Pacing Amplitude 2.800 [facility] Work Phone: Lead Channel Setting Pacing Pulse Width 0.9 [facility] Work Phone: Lead Channel Setting Pacing Pulse Width 0.4 [facility] Work Phone: Lead Channel Setting Sensing Sensitivity 0.25 [facility] Work Phone: Lead Channel Setting Sensing Sensitivity 2.50 [facility] Work Phone: Rate 1 185 [facility] Work Phone: Zone ID 1 [facility] Work Phone: Zone ID 2 [facility] Work Phone: Zone ID 3 [facility] Work Phone: Zone Setting Type Category VF [facility] Work Phone: Zone Setting Type Category [place] [facility] Work Phone: Zone Setting Type Category VT1 [facility] Work Phone: [facility] Work Phone: CARDIAC IMPLANTABLE DEVICE [place] 01-23-2024 Title: [facility] * Patient was seen in hospital Post Op device check Q 50-19 * Reason: Increase base rate post Op * Presenting rhythm reviewed /VS * Underlying rhythm SR * Heart Rate Histograms reviewed * Device Function and programmed parameters reviewed AP 100% AP 99% Additional Notes: Will need base rate decreased to 60 and Max sensor rate increased to 130 prior to discharge Title: Device Reprogrammed Device reprogrammed, changes are listed below: * Base rate to 90 * Max sensor rate to 115 * RA amplitude 3V based on testing today * RV amplitude 2.8V based on testing today Title: Inappropriate Mode Switching * Stored EGMs are consistent with or suggestive of inappropriate mode switching, 10 episodes today * Reason: Cautery during surgery * Device reprogrammed: N NOTE TO PROVIDERS: Cardiac Implanted Devices Flowsheets contain detailed Programming and Evaluation data. Full Docket/PDF found below under Scanned Documents . [facility] Kristofer Barraza MD - 01/23/2024 Title: Hospital Check * Patient was seen in hospital Post Op device check Q 50-19 * Reason: Increase base rate post Op * Presenting rhythm reviewed /VS * Underlying rhythm SR * Heart Rate Histograms reviewed * Device Function and programmed parameters reviewed AP 100% AP 99% Additional Notes: Will need base rate decreased to 60 and Max sensor rate increased to 130 prior to discharge Title: Device Reprogrammed Device reprogrammed, changes are listed below: * Base rate to 90 * Max sensor rate to 115 * RA amplitude 3V based on testing today * RV amplitude 2.8V based on testing today Title: Inappropriate Mode Switching * Stored EGMs are consistent with or suggestive of inappropriate mode switching, 10 episodes today * Reason: Cautery during surgery * Device reprogrammed: N NOTE TO PROVIDERS: Cardiac Implanted Devices Flowsheets contain detailed Programming and Evaluation data. Full Docket/PDF found below under Scanned Documents . [facility] CASE MGT INIT ASSESon 2023 CASE MGT INIT ASSES Normal [facility] Fibrinogen PPP-mCncon 2023 Fibrinogen Coag (PPP) [Mass/Vol] 265 mg/dL Normal 200-400 [facility] Comment on above: Order Comment: Speci men Type: BLOOD SPECIMENOrdering Facility: [facility] Address: [address] [place] [address] Performed By: #### 3 255-7 ####[facility] [id number] [address] [place] [employer] BldVon 01-23-20 Body temperature 100.76 [degF] Normal [facility] Comment on above: Order Comment: Speci men Type: VENOUS BLOOD SPECIMENOrdering Facility: [facility] Address: [address] [id number] Performed By: #### 2 4344-4 ####[facility] [id number] [place] [address] [place] Order Comment: Speci men Type: ARTERIAL BLOOD SPECIMENOrdering Facility: [facility] Address: [address] [place] [address] Performed By: #### A LLBG ####[facility] [id number] [place] [address] [place] FIO2 30 % Normal [facility] Comment on above: Order Comment: Speci men Type: VENOUS BLOOD SPECIMENOrdering Facility: [facility] Address: [address] [place] [address] Performed By: #### 2 4344-4 ####[facility] [id number] [place] [address] [place] Order Comment: Speci men Type: ARTERIAL BLOOD SPECIMENOrdering Facility: [facility] Address: [address] [id number] Performed By: #### A LLBG ####[facility] [id number] [place] [address] [place] O2 THERAPY VENT=Ventilator Normal [facility] Comment on above: Order Comment: Speci men Type: VENOUS BLOOD SPECIMENOrdering Facility: [facility] Address: [address] [id number] Performed By: #### 2 4344-4 ####[facility] [id number] [place] [id number] [place] Order Comment: Speci men Type: ARTERIAL BLOOD SPECIMENOrdering Facility: [facility] Address: [address] [place] [address] Performed By: #### A LLBG ####[facility] [id number] [place] [address] [place] PEEP/CPAP 8 cmH2O Normal [facility] Comment on above: Order Comment: Speci men Type: VENOUS BLOOD SPECIMENOrdering Facility: [facility] Address: [address] [place] [address] Performed By: #### 2 4344-4 ####[facility] [id number] [place] [address] [place] Order Comment: Speci men Type: ARTERIAL BLOOD SPECIMENOrdering Facility: [facility] Address: [address] [place] [address] Performed By: #### A LLBG ####[facility] [id number] [address] [place] SET VENTILATOR RESPIRATORY RATE (BPM) 34 BPM Normal [facility] Comment on above: Order Comment: Speci men Type: VENOUS BLOOD SPECIMENOrdering Facility: [facility] Address: [address] [place] [address] Performed By: #### 2 4344-4 ####[facility] [id number] [place] [address] [place] Order Comment: Speci men Type: ARTERIAL BLOOD SPECIMENOrdering Facility: [facility] Address: [address] [place] [address] Performed By: #### A LLBG ####[facility] [id number] [place] [address] [place] Gas and Carbon monoxide pane l (BldV)on 01-23-2024 BASE DEFICIT, VENOUS -2 mmol/L Normal -2-0 [facility] Comment on above: Order Comment: Speci men Type: VENOUS BLOOD SPECIMENOrdering Facility: [facility] Address: [address] [place] [address] Performed By: #### 2 4344-4 ####[facility] [id number] [place] [address] [place] Calcium.ionized (Bld) [Mass/Vol] 1.17 mmol/L Normal 1.08-1.30 [facility] Comment on above: Order Comment: Speci men Type: VENOUS BLOOD SPECIMENOrdering Facility: [facility] Address: [address] [place] [address] Performed By: #### 2 4344-4 ####[facility] [id number] [place] [address] [place] Calcium.ionized adjusted to pH 7.4 (BldA) [Moles/Vol] 1.15 mmol/L Normal 1.08-1.30 [facility] Comment on above: Order Comment: Speci men Type: VENOUS BLOOD SPECIMENOrdering Facility: [facility] Address: [address] [place] [address] Performed By: #### 2 4344-4 ####[facility] [id number] [place] [address] [place] Carboxyhemoglobin (BldV) [Mass fraction] 1.5 % Normal 0.0-2.0 [facility] Comment on above: Order Comment: Speci men Type: VENOUS BLOOD SPECIMENOrdering Facility: [facility] Address: [address] [place] [address] Result Comment: Carb oxyhemoglobin Reference Range for Smokers: 2.0-8.0% Performed By: #### 2 4344-4 ####[facility] [id number] [place] [address] [place] CO2 (BldV) [Partial pressure] 40 mm[Hg] Low 42-55 [facility] Comment on above: Order Comment: Speci men Type: VENOUS BLOOD SPECIMENOrdering Facility: [facility] Address: [address] [place] [address] Performed By: #### 2 4344-4 ####[facility] [id number] [place] [address] [place] CO2 adjusted to patient's actual temperature (BldV) [Partial pressure] 44 mmHg Normal 42-55 [facility] Comment on above: Order Comment: Speci men Type: VENOUS BLOOD SPECIMENOrdering Facility: [facility] Address: [address] [place] [address] Performed By: #### 2 4344-4 ####[facility] [id number] [place] [address] [place] Glucose [Mass/Vol] 125 mg/dL High 60-105 [facility] Comment on above: Order Comment: Speci men Type: VENOUS BLOOD SPECIMENOrdering Facility: [facility] Address: [address] [place] [address] Performed By: #### 2 4344-4 ####[facility] [id number] [place] [address] [place] Hematocrit (Bld) [Volume fraction] 33.1 % Low 39.0-51.0 [facility] Comment on above: Order Comment: Speci men Type: VENOUS BLOOD SPECIMENOrdering Facility: [facility] Address: [address] [place] [address] Performed By: #### 2 4344-4 ####[facility] [id number] [place] [address] [place] Hemoglobin (Bld) [Mass/Vol] 10.7 g/dL Low 13.0-17.0 [facility] Comment on above: Order Comment: Speci men Type: VENOUS BLOOD SPECIMENOrdering Facility: [facility] Address: [address] [place] [address] Performed By: #### 2 4344-4 ####[facility] [id number] [id number] [address] [place] Lactate [Moles/Vol] 4.5 mmol/L High 0.5-2.2 [facility] Comment on above: Order Comment: Speci men Type: VENOUS BLOOD SPECIMENOrdering Facility: [facility] Address: [address] [place] [address] Performed By: #### 2 4344-4 ####[facility] [id number] [place] [address] [place] Methemoglobin (Bld) [Mass fraction] 0.7 % Normal 0.0-1.5 [facility] Comment on above: Order Comment: Speci men Type: VENOUS BLOOD SPECIMENOrdering Facility: [facility] Address: [address] [place] [address] Performed By: #### 2 4344-4 ####[facility] [id number] [place] [address] [place] Oxygen (BldV) [Partial pressure] 48 mm[Hg] High 35-45 [facility] Comment on above: Order Comment: Speci men Type: VENOUS BLOOD SPECIMENOrdering Facility: [facility] Address: [address] [place] [address] Performed By: #### 2 4344-4 ####[facility] [id number] [place] [address] [place] Oxygen adjusted to patient's actual temperature (BldV) [Partial pressure] 56 mmHg High 35-45 [facility] Comment on above: Order Comment: Speci men Type: VENOUS BLOOD SPECIMENOrdering Facility: [facility] Address: [address] [place] [address] Performed By: #### 2 4344-4 ####[facility] [id number] [place] [address] [place] Oxygen saturation in Venous blood 86 % High 60-85 [facility] Comment on above: Order Comment: Speci men Type: VENOUS BLOOD SPECIMENOrdering Facility: [facility] Address: [address] [place] [address] Performed By: #### 2 4344-4 ####[facility] [id number] [place] [address] [place] Oxyhemoglobin (BldV) [Mass fraction] 84 % Normal 60-85 [facility] Comment on above: Order Comment: Speci men Type: VENOUS BLOOD SPECIMENOrdering Facility: [facility] Address: [address] [place] [address] Performed By: #### 2 4344-4 ####[facility] [id number] [place] [address] [place] pH (BldV) 7.38 [pH] Normal 7.32-7.42 [facility] Comment on above: Order Comment: Speci men Type: VENOUS BLOOD SPECIMENOrdering Facility: [facility] Address: [address] [place] [address] Performed By: #### 2 4344-4 ####[facility] [id number] [place] [address] [place] pH adjusted to patient's actual temperature (BldV) 7.35 Normal 7.32-7.42 [facility] Comment on above: Order Comment: Speci men Type: VENOUS BLOOD SPECIMENOrdering Facility: [facility] Address: [address] [place] [address] Performed By: #### 2 4344-4 ####[facility] [id number] [place] [address] [place] Potassium [Moles/Vol] 4.4 mmol/L Normal 3.5-5.0 [facility] Comment on above: Order Comment: Speci men Type: VENOUS BLOOD SPECIMENOrdering Facility: [facility] Address: [address] [place] [address] Performed By: #### 2 4344-4 ####[facility] [id number] [place] [address] [place] Sodium [Moles/Vol] 140 mmol/L Normal 136-144 [facility] Comment on above: Order Comment: Speci men Type: VENOUS BLOOD SPECIMENOrdering Facility: [facility] Address: [address] [place] [address] Performed By: #### 2 4344-4 ####[facility] [id number] [place] [address] [place] BASE DEFICIT, VENOUS -1 mmol/L Normal -2-0 [facility] Comment on above: Order Comment: Speci men Type: VENOUS BLOOD SPECIMENOrdering Facility: [facility] Address: [address] [place] [address] Performed By: #### 2 4344-4 ####[facility] [id number] [place] [address] [place] Calcium.ionized (Bld) [Mass/Vol] 1.23 mmol/L Normal 1.08-1.30 [facility] Comment on above: Order Comment: Speci men Type: VENOUS BLOOD SPECIMENOrdering Facility: [facility] Address: [address] [place] [address] Performed By: #### 2 4344-4 ####[facility] [id number] [place] [address] [place] Calcium.ionized adjusted to pH 7.4 (BldA) [Moles/Vol] 1.21 mmol/L Normal 1.08-1.30 [facility] Comment on above: Order Comment: Speci men Type: VENOUS BLOOD SPECIMENOrdering Facility: [facility] Address: [address] [place] [address] Performed By: #### 2 4344-4 ####[facility] [id number] [place] [address] [place] Carboxyhemoglobin (BldV) [Mass fraction] 1.5 % Normal 0.0-2.0 [facility] Comment on above: Order Comment: Speci men Type: VENOUS BLOOD SPECIMENOrdering Facility: [facility] Address: [address] [place] [address] Result Comment: Carb oxyhemoglobin Reference Range for Smokers: 2.0-8.0% Performed By: #### 2 4344-4 ####[facility] [id number] [place] [address] [place] CO2 (BldV) [Partial pressure] 40 mm[Hg] Low 42-55 [facility] Comment on above: Order Comment: Speci men Type: VENOUS BLOOD SPECIMENOrdering Facility: [facility] Address: [address] [place] [address] Performed By: #### 2 4344-4 ####[facility] [id number] [place] [address] [place] CO2 adjusted to patient's actual temperature (BldV) [Partial pressure] 44 mmHg Normal 42-55 [facility] Comment on above: Order Comment: Speci men Type: VENOUS BLOOD SPECIMENOrdering Facility: [facility] Address: [address] [place] [address] Performed By: #### 2 4344-4 ####[facility] [id number] [place] [address] [place] Glucose [Mass/Vol] 139 mg/dL High 60-105 [facility] Comment on above: Order Comment: Speci men Type: VENOUS BLOOD SPECIMENOrdering Facility: [facility] Address: [address] [place] [address] Performed By: #### 2 4344-4 ####[facility] [id number] [place] [address] [place] HCO3 (Bld) [Moles/Vol] 23 mmol/L Low 24-28 [facility] Comment on above: Order Comment: Speci men Type: VENOUS BLOOD SPECIMENOrdering Facility: [facility] Address: [address] [place] [address] Performed By: #### 2 4344-4 ####[facility] [id number] [place] [address] [place] Hematocrit (Bld) [Volume fraction] 35.9 % Low 39.0-51.0 [facility] Comment on above: Order Comment: Speci men Type: VENOUS BLOOD SPECIMENOrdering Facility: [facility] Address: [address] [place] [address] Performed By: #### 2 4344-4 ####[facility] [id number] [place] [address] [place] Hemoglobin (Bld) [Mass/Vol] 11.7 g/dL Low 13.0-17.0 [facility] Comment on above: Order Comment: Speci men Type: VENOUS BLOOD SPECIMENOrdering Facility: [facility] Address: [address] [place] [address] Performed By: #### 2 4344-4 ####[facility] [id number] [place] [address] [place] Lactate [Moles/Vol] 5.3 mmol/L High 0.5-2.2 [facility] Comment on above: Order Comment: Speci men Type: VENOUS BLOOD SPECIMENOrdering Facility: [facility] Address: [address] [place] [address] Performed By: #### 2 4344-4 ####[facility] [id number] [place] [address] [place] Methemoglobin (Bld) [Mass fraction] 0.8 % Normal 0.0-1.5 [facility] Comment on above: Order Comment: Speci men Type: VENOUS BLOOD SPECIMENOrdering Facility: [facility] Address: [address] [place] [address] Performed By: #### 2 4344-4 ####[facility] [id number] [address] [address] [place] Oxygen (BldV) [Partial pressure] 46 mm[Hg] High 35-45 [facility] Comment on above: Order Comment: Speci men Type: VENOUS BLOOD SPECIMENOrdering Facility: [facility] Address: [address] [place], [place] [address] Performed By: #### 2 4344-4 ####[facility] [id number] [place] [address] [place] Oxygen adjusted to patient's actual temperature (BldV) [Partial pressure] 52 mmHg High 35-45 [facility] Comment on above: Order Comment: Speci men Type: VENOUS BLOOD SPECIMENOrdering Facility: [facility] Address: [address] [place] [address] Performed By: #### 2 4344-4 ####[facility] [id number] [place] [address] [place] Oxygen saturation in Venous blood 83 % Normal 60-85 [facility] Comment on above: Order Comment: Speci men Type: VENOUS BLOOD SPECIMENOrdering Facility: [facility] Address: [address] [place] [address] Performed By: #### 2 4344-4 ####[facility] [id number] [place] [address] [place] Oxyhemoglobin (BldV) [Mass fraction] 81 % Normal 60-85 [facility] Comment on above: Order Comment: Speci men Type: VENOUS BLOOD SPECIMENOrdering Facility: [facility] Address: [address] [place], [place] [address] Performed By: #### 2 4344-4 ####[facility] [id number] [place] [id number] [place] pH (BldV) 7.38 [pH] Normal 7.32-7.42 [facility] Comment on above: Order Comment: Speci men Type: VENOUS BLOOD SPECIMENOrdering Facility: [facility] Address: [address] [place], [place] [address] Performed By: #### 2 4344-4 ####[facility] [id number] [address] [address] [place] pH adjusted to patient's actual temperature (BldV) 7.36 Normal 7.32-7.42 [facility] Comment on above: Order Comment: Speci men Type: VENOUS BLOOD SPECIMENOrdering Facility: [facility] Address: [address] [place], [place] [address] Performed By: #### 2 4344-4 ####[facility] [id number] [place] [address] [place] Potassium [Moles/Vol] 4.6 mmol/L Normal 3.5-5.0 [facility] Comment on above: Order Comment: Speci men Type: VENOUS BLOOD SPECIMENOrdering Facility: [facility] Address: [address] [place], [place] [address] Performed By: #### 2 4344-4 ####[facility] [id number] [place] [address] [place] SET VENTILATOR RESPIRATORY RATE (BPM) 34 BPM Normal [facility] Comment on above: Order Comment: Speci men Type: VENOUS BLOOD SPECIMENOrdering Facility: [facility] Address: [address] [place], [place] [address] Performed By: #### 2 4344-4 ####[facility] [id number] [place] [address] [place] Sodium [Moles/Vol] 140 mmol/L Normal 136-144 [facility] Comment on above: Order Comment: Speci men Type: VENOUS BLOOD SPECIMENOrdering Facility: [facility] Address: [address] [place], [place] [address] Performed By: #### 2 4344-4 ####[facility] [id number] [place] [address] [place] BASE DEFICIT, VENOUS -3 mmol/L Low -2-0 [facility] Comment on above: Order Comment: Speci men Type: VENOUS BLOOD SPECIMENOrdering Facility: [facility] Address: [address] [place] [address] Performed By: #### 2 4344-4 ####[facility] [id number] [place] [address] [place] Calcium.ionized (Bld) [Mass/Vol] 1.18 mmol/L Normal 1.08-1.30 [facility] Comment on above: Order Comment: Speci men Type: VENOUS BLOOD SPECIMENOrdering Facility: [facility] Address: [address] [place] [address] Performed By: #### 2 4344-4 ####[facility] [id number] [place] [address] [place] Calcium.ionized adjusted to pH 7.4 (BldA) [Moles/Vol] 1.16 mmol/L Normal 1.08-1.30 [facility] Comment on above: Order Comment: Speci men Type: VENOUS BLOOD SPECIMENOrdering Facility: [facility] Address: [address] [place] [address] Performed By: #### 2 4344-4 ####[facility] [id number] [place] [address] [place] Carboxyhemoglobin (BldV) [Mass fraction] 1.4 % Normal 0.0-2.0 [facility] Comment on above: Order Comment: Speci men Type: VENOUS BLOOD SPECIMENOrdering Facility: [facility] Address: [address] [place] [address] Result Comment: Carb oxyhemoglobin Reference Range for Smokers: 2.0-8.0% Performed By: #### 2 4344-4 ####[facility] [id number] [place] [address] [place] CO2 (BldV) [Partial pressure] 39 mm[Hg] Low 42-55 [facility] Comment on above: Order Comment: Speci men Type: VENOUS BLOOD SPECIMENOrdering Facility: [facility] Address: [address] [place] [address] Performed By: #### 2 4344-4 ####[facility] [id number] [place] [address] [place] CO2 adjusted to patient's actual temperature (BldV) [Partial pressure] 41 mmHg Low 42-55 [facility] Comment on above: Order Comment: Speci men Type: VENOUS BLOOD SPECIMENOrdering Facility: [facility] Address: [address] [place] [address] Performed By: #### 2 4344-4 ####[facility] [id number] [place] [address] [place] Glucose [Mass/Vol] 140 mg/dL High 60-105 [facility] Comment on above: Order Comment: Speci men Type: VENOUS BLOOD SPECIMENOrdering Facility: [facility] Address: [address] [place] [address] Performed By: #### 2 4344-4 ####[facility] [id number] [place] [address] [place] HCO3 (Bld) [Moles/Vol] 22 mmol/L Low 24-28 [facility] Comment on above: Order Comment: Speci men Type: VENOUS BLOOD SPECIMENOrdering Facility: [facility] Address: [address] [place] [place] [address] Performed By: #### 2 4344-4 ####[facility] [id number] [place] [address] [place] Hematocrit (Bld) [Volume fraction] 36.0 % Low 39.0-51.0 [facility] Comment on above: Order Comment: Speci men Type: VENOUS BLOOD SPECIMENOrdering Facility: [facility] Address: [address] [place] [address] Performed By: #### 2 4344-4 ####[facility] [id number] [place] [address] [place] Hemoglobin (Bld) [Mass/Vol] 11.7 g/dL Low 13.0-17.0 [facility] Comment on above: Order Comment: Speci men Type: VENOUS BLOOD SPECIMENOrdering Facility: [facility] Address: [address] [place] [address] Performed By: #### 2 4344-4 ####[facility] [id number] [place] [address] [place] Lactate [Moles/Vol] 6.9 mmol/L High 0.5-2.2 [facility] Comment on above: Order Comment: Speci men Type: VENOUS BLOOD SPECIMENOrdering Facility: [facility] Address: [address] [place] [address] Performed By: #### 2 4344-4 ####[facility] [id number] [place] [address] [place] Methemoglobin (Bld) [Mass fraction] 0.8 % Normal 0.0-1.5 [facility] Comment on above: Order Comment: Speci men Type: VENOUS BLOOD SPECIMENOrdering Facility: [facility] Address: [address] [place] [address] Performed By: #### 2 4344-4 ####[facility] [id number] [place] [address] [place] Oxygen (BldV) [Partial pressure] 45 mm[Hg] Normal 35-45 [facility] Comment on above: Order Comment: Speci men Type: VENOUS BLOOD SPECIMENOrdering Facility: [facility] Address: [address] [place], [place] [address] Performed By: #### 2 4344-4 ####[facility] [id number] [address] [address] [place] Oxygen adjusted to patient's actual temperature (BldV) [Partial pressure] 49 mmHg High 35-45 [facility] Comment on above: Order Comment: Speci men Type: VENOUS BLOOD SPECIMENOrdering Facility: [facility] Address: [address] [place], [place] [address] Performed By: #### 2 4344-4 ####[facility] [id number] [place] [address] [place] Oxygen saturation in Venous blood 81 % Normal 60-85 [facility] Comment on above: Order Comment: Speci men Type: VENOUS BLOOD SPECIMENOrdering Facility: [facility] Address: [address] [place], [place] [address] Performed By: #### 2 4344-4 ####[facility] [id number] [place] [address] [place] Oxyhemoglobin (BldV) [Mass fraction] 79 % Normal 60-85 [facility] Comment on above: Order Comment: Speci men Type: VENOUS BLOOD SPECIMENOrdering Facility: [facility] Address: [address] [place] [address] Performed By: #### 2 4344-4 ####[facility] [id number] [place] [address] [place] pH (BldV) 7.37 [pH] Normal 7.32-7.42 [facility] Comment on above: Order Comment: Speci men Type: VENOUS BLOOD SPECIMENOrdering Facility: [facility] Address: [address] [place], [place] [address] Performed By: #### 2 4344-4 ####[facility] [id number] [address] [address] [place] pH adjusted to patient's actual temperature (BldV) 7.35 Normal 7.32-7.42 [facility] Comment on above: Order Comment: Speci men Type: VENOUS BLOOD SPECIMENOrdering Facility: [facility] Address: [address] [place] [address] Performed By: #### 2 4344-4 ####[facility] [id number] [address] [address] [place] Potassium [Moles/Vol] 4.2 mmol/L Normal 3.5-5.0 [facility] Comment on above: Order Comment: Speci men Type: VENOUS BLOOD SPECIMENOrdering Facility: [facility] Address: [address] [place], [place] [address] Performed By: #### 2 4344-4 ####[facility] [id number] [place] [address] [place] Sodium [Moles/Vol] 139 mmol/L Normal 136-144 [facility] Comment on above: Order Comment: Speci men Type: VENOUS BLOOD SPECIMENOrdering Facility: [facility] Address: [address] [place], [place] [address] Performed By: #### 2 4344-4 ####[facility] [id number] [place] [address] [place] BASE DEFICIT, VENOUS -4 mmol/L Low -2-0 [facility] Comment on above: Order Comment: Speci men Type: VENOUS BLOOD SPECIMENOrdering Facility: [facility] Address: [address] [place] [address] Performed By: #### 2 4344-4 ####[facility] [id number] [place] [address] [place] Body temperature 99.14 [degF] Normal [facility] Comment on above: Order Comment: Speci men Type: VENOUS BLOOD SPECIMENOrdering Facility: [facility] Address: [address] [place], [place] [address] Performed By: #### 2 4344-4 ####[facility] [id number] [place] [address] [place] Calcium.ionized (Bld) [Mass/Vol] 1.18 mmol/L Normal 1.08-1.30 [facility] Comment on above: Order Comment: Speci men Type: VENOUS BLOOD SPECIMENOrdering Facility: [facility] Address: [address] [place] [address] Performed By: #### 2 4344-4 ####[facility] [id number] [place] [address] [place] Calcium.ionized adjusted to pH 7.4 (BldA) [Moles/Vol] 1.15 mmol/L Normal 1.08-1.30 [facility] Comment on above: Order Comment: Speci men Type: VENOUS BLOOD SPECIMENOrdering Facility: [facility] Address: [address] [place] [address] Performed By: #### 2 4344-4 ####[facility] [id number] [place] [address] [place] Carboxyhemoglobin (BldV) [Mass fraction] 1.1 % Normal 0.0-2.0 [facility] Comment on above: Order Comment: Speci men Type: VENOUS BLOOD SPECIMENOrdering Facility: [facility] Address: [address] [place] [address] Performed By: #### 2 4344-4 ####[facility] [id number] [place] [address] [place] CO2 (BldV) [Partial pressure] 40 mm[Hg] Low 42-55 [facility] Comment on above: Order Comment: Speci men Type: VENOUS BLOOD SPECIMENOrdering Facility: [facility] Address: [address] [place] [address] Performed By: #### 2 4344-4 ####[facility] [id number] [place] [address] [place] CO2 adjusted to patient's actual temperature (BldV) [Partial pressure] 40 mmHg Low 42-55 [facility] Comment on above: Order Comment: Speci men Type: VENOUS BLOOD SPECIMENOrdering Facility: [facility] Address: [address] [place] [address] Performed By: #### 2 4344-4 ####[facility] [id number] [place] [address] [place] FIO2 40 % Normal [facility] Comment on above: Order Comment: Speci men Type: VENOUS BLOOD SPECIMENOrdering Facility: [facility] Address: [address] [place] [address] Performed By: #### 2 4344-4 ####[facility] [id number] [place] [address] [place] Glucose [Mass/Vol] 147 mg/dL High 60-105 [facility] Comment on above: Order Comment: Speci men Type: VENOUS BLOOD SPECIMENOrdering Facility: [facility] Address: [address] [place] [address] Performed By: #### 2 4344-4 ####[facility] [id number] [place] [address] [place] HCO3 (Bld) [Moles/Vol] 21 mmol/L Low 24-28 [facility] Comment on above: Order Comment: Speci men Type: VENOUS BLOOD SPECIMENOrdering Facility: [facility] Address: [address] [place] [address] Performed By: #### 2 4344-4 ####[facility] [id number] [place] [address] [place] Hematocrit (Bld) [Volume fraction] 35.7 % Low 39.0-51.0 [facility] Comment on above: Order Comment: Speci men Type: VENOUS BLOOD SPECIMENOrdering Facility: [facility] Address: [address] [place] [address] Performed By: #### 2 4344-4 ####[facility] [id number] [place] [address] [place] Hemoglobin (Bld) [Mass/Vol] 11.6 g/dL Low 13.0-17.0 [facility] Comment on above: Order Comment: Speci men Type: VENOUS BLOOD SPECIMENOrdering Facility: [facility] Address: [address] [place] [address] Performed By: #### 2 4344-4 ####[facility] [id number] [place] [address] [place] Lactate [Moles/Vol] 8.4 mmol/L High 0.5-2.2 [facility] Comment on above: Order Comment: Speci men Type: VENOUS BLOOD SPECIMENOrdering Facility: [facility] Address: [address] [place] [address] Performed By: #### 2 4344-4 ####[facility] [id number] [place] [address] [place] Methemoglobin (Bld) [Mass fraction] 1.0 % Normal 0.0-1.5 [facility] Comment on above: Order Comment: Speci men Type: VENOUS BLOOD SPECIMENOrdering Facility: [facility] Address: [address] [place] [address] Performed By: #### 2 4344-4 ####[facility] [id number] [address] [place] O2 THERAPY VENT=Ventilator Normal [facility] Comment on above: Order Comment: Speci men Type: VENOUS BLOOD SPECIMENOrdering Facility: [facility] Address: [address] [place] [address] Performed By: #### 2 4344-4 ####[facility] [id number] [place] [address] [place] Oxygen (BldV) [Partial pressure] 50 mm[Hg] High 35-45 [facility] Comment on above: Order Comment: Speci men Type: VENOUS BLOOD SPECIMENOrdering Facility: [facility] Address: [address] [place] [address] Performed By: #### 2 4344-4 ####[facility] [id number] [address] [address] [place] Oxygen adjusted to patient's actual temperature (BldV) [Partial pressure] 51 mmHg High 35-45 [facility] Comment on above: Order Comment: Speci men Type: VENOUS BLOOD SPECIMENOrdering Facility: [facility] Address: [address] [place] [address] Performed By: #### 2 4344-4 ####[facility] [id number] [address] [address] [place] Oxygen saturation in Venous blood 84 % Normal 60-85 [facility] Comment on above: Order Comment: Speci men Type: VENOUS BLOOD SPECIMENOrdering Facility: [facility] Address: [address] [place], [place] [address] Performed By: #### 2 4344-4 ####[facility] [id number] [address] [address] [place] Oxyhemoglobin (BldV) [Mass fraction] 82 % Normal 60-85 [facility] Comment on above: Order Comment: Speci men Type: VENOUS BLOOD SPECIMENOrdering Facility: [facility] Address: [address] [place] [address] Performed By: #### 2 4344-4 ####[facility] [id number] [address] [address] [place] pH (BldV) 7.35 [pH] Normal 7.32-7.42 [facility] Comment on above: Order Comment: Speci men Type: VENOUS BLOOD SPECIMENOrdering Facility: [facility] Address: [address] [place] [address] Performed By: #### 2 4344-4 ####[facility] [id number] [place] [address] [place] pH adjusted to patient's actual temperature (BldV) 7.34 Normal 7.32-7.42 [facility] Comment on above: Order Comment: Speci men Type: VENOUS BLOOD SPECIMENOrdering Facility: [facility] Address: [address] [place] [address] Performed By: #### 2 4344-4 ####[facility] [id number] [place] [address] [place] Potassium [Moles/Vol] 3.8 mmol/L Normal 3.5-5.0 [facility] Comment on above: Order Comment: Speci men Type: VENOUS BLOOD SPECIMENOrdering Facility: [facility] Address: [address] [place] [address] Performed By: #### 2 4344-4 ####[facility] [id number] [place] [address] [place] Sodium [Moles/Vol] 138 mmol/L Normal 136-144 [facility] Comment on above: Order Comment: Speci men Type: VENOUS BLOOD SPECIMENOrdering Facility: [facility] Address: [address] [place] [address] Performed By: #### 2 4344-4 ####[facility] [id number] [place] [address] [place] BASE DEFICIT, VENOUS -7 mmol/L Low -2-0 [facility] Comment on above: Order Comment: Speci men Type: VENOUS BLOOD SPECIMENOrdering Facility: [facility] Address: [address] [place] [address] Performed By: #### 2 4344-4 ####[facility] [id number] [place] [address] [place] Calcium.ionized (Bld) [Mass/Vol] 1.11 mmol/L Normal 1.08-1.30 [facility] Comment on above: Order Comment: Speci men Type: VENOUS BLOOD SPECIMENOrdering Facility: [facility] Address: [address] [place] [address] Performed By: #### 2 4344-4 ####[facility] [id number] [place] [address] [place] Calcium.ionized adjusted to pH 7.4 (BldA) [Moles/Vol] 1.04 mmol/L Low 1.08-1.30 [facility] Comment on above: Order Comment: Speci men Type: VENOUS BLOOD SPECIMENOrdering Facility: [facility] Address: [address] [place] [address] Performed By: #### 2 4344-4 ####[facility] [id number] [place] [address] [place] Carboxyhemoglobin (BldV) [Mass fraction] 1.0 % Normal 0.0-2.0 [facility] Comment on above: Order Comment: Speci men Type: VENOUS BLOOD SPECIMENOrdering Facility: [facility] Address: [address] [place] [address] Result Comment: Carb oxyhemoglobin Reference Range for Smokers: 2.0-8.0% Performed By: #### 2 4344-4 ####[facility] [id number] [place] [address] [place] CO2 (BldV) [Partial pressure] 42 mm[Hg] Normal 42-55 [facility] Comment on above: Order Comment: Speci men Type: VENOUS BLOOD SPECIMENOrdering Facility: [facility] Address: [address] [place] [address] Performed By: #### 2 4344-4 ####[facility] [id number] [place] [address] [place] CO2 adjusted to patient's actual temperature (BldV) [Partial pressure] 42 mmHg Normal 42-55 [facility] Comment on above: Order Comment: Speci men Type: VENOUS BLOOD SPECIMENOrdering Facility: [facility] Address: [address] [place] [address] Performed By: #### 2 4344-4 ####[facility] [id number] [place] [address] [place] Glucose [Mass/Vol] 147 mg/dL High 60-105 [facility] Comment on above: Order Comment: Speci men Type: VENOUS BLOOD SPECIMENOrdering Facility: [facility] Address: [address] [place] [address] Performed By: #### 2 4344-4 ####[facility] [id number] [place] [address] [place] Hematocrit (Bld) [Volume fraction] 37.9 % Low 39.0-51.0 [facility] Comment on above: Order Comment: Speci men Type: VENOUS BLOOD SPECIMENOrdering Facility: [facility] Address: [address] [place] [address] Performed By: #### 2 4344-4 ####[facility] [id number] [place] [address] [place] Hemoglobin (Bld) [Mass/Vol] 12.3 g/dL Low 13.0-17.0 [facility] Comment on above: Order Comment: Speci men Type: VENOUS BLOOD SPECIMENOrdering Facility: [facility] Address: [address] [place] [address] Performed By: #### 2 4344-4 ####[facility] [id number] [place] [address] [place] Lactate [Moles/Vol] 6.6 mmol/L High 0.5-2.2 [facility] Comment on above: Order Comment: Speci men Type: VENOUS BLOOD SPECIMENOrdering Facility: [facility] Address: [address] [place] [address] Performed By: #### 2 4344-4 ####[facility] [id number] [address] [address] [place] Oxygen (BldV) [Partial pressure] 53 mm[Hg] High 35-45 [facility] Comment on above: Order Comment: Speci men Type: VENOUS BLOOD SPECIMENOrdering Facility: [facility] Address: [address] [place] [address] Performed By: #### 2 4344-4 ####[facility] [id number] [place] [address] [place] Oxygen adjusted to patient's actual temperature (BldV) [Partial pressure] 54 mmHg High 35-45 [facility] Comment on above: Order Comment: Speci men Type: VENOUS BLOOD SPECIMENOrdering Facility: [facility] Address: [address] [place] [address] Performed By: #### 2 4344-4 ####[facility] [id number] [place] [address] [place] Oxygen saturation in Venous blood 84 % Normal 60-85 [facility] Comment on above: Order Comment: Speci men Type: VENOUS BLOOD SPECIMENOrdering Facility: [facility] Address: [address] [place], [place] [address] Performed By: #### 2 4344-4 ####[facility] [id number] [place] [address] [place] Oxyhemoglobin (BldV) [Mass fraction] 82 % Normal 60-85 [facility] Comment on above: Order Comment: Speci men Type: VENOUS BLOOD SPECIMENOrdering Facility: [facility] Address: [address] [place], [place] [address] Performed By: #### 2 4344-4 ####[facility] [id number] [place] [id number] [place] pH (BldV) 7.28 [pH] Low 7.32-7.42 [facility] Comment on above: Order Comment: Speci men Type: VENOUS BLOOD SPECIMENOrdering Facility: [facility] Address: [address] [place] [address] Performed By: #### 2 4344-4 ####[facility] [id number] [place] [address] [place] pH adjusted to patient's actual temperature (BldV) 7.28 Low 7.32-7.42 [facility] Comment on above: Order Comment: Speci men Type: VENOUS BLOOD SPECIMENOrdering Facility: [facility] Address: [address] [place] [address] Performed By: #### 2 4344-4 ####[facility] [id number] [place] [address] [place] Potassium [Moles/Vol] 3.5 mmol/L Normal 3.5-5.0 [facility] Comment on above: Order Comment: Speci men Type: VENOUS BLOOD SPECIMENOrdering Facility: [facility] Address: [address] [place] [address] Performed By: #### 2 4344-4 ####[facility] [id number] [place] [address] [place] Sodium [Moles/Vol] 143 mmol/L Normal 136-144 [facility] Comment on above: Order Comment: Speci men Type: VENOUS BLOOD SPECIMENOrdering Facility: [facility] Address: [address] [place] [address] Performed By: #### 2 4344-4 ####[facility] [id number] [place] [address] [place] BASE DEFICIT, VENOUS -7 mmol/L Low -2-0 [facility] Comment on above: Order Comment: Speci men Type: VENOUS BLOOD SPECIMENOrdering Facility: [facility] Address: [address] [place] [address] Performed By: #### 2 4344-4 ####[facility] [id number] [place] [address] [place] Body temperature 97.7 [degF] Normal [facility] Comment on above: Order Comment: Speci men Type: VENOUS BLOOD SPECIMENOrdering Facility: [facility] Address: [address] [place] [address] Performed By: #### 2 4344-4 ####[facility] [id number] [place] [address] [place] Calcium.ionized (Bld) [Mass/Vol] 1.17 mmol/L Normal 1.08-1.30 [facility] Comment on above: Order Comment: Speci men Type: VENOUS BLOOD SPECIMENOrdering Facility: [facility] Address: [address] [place] [address] Performed By: #### 2 4344-4 ####[facility] [id number] [place] [address] [place] Calcium.ionized adjusted to pH 7.4 (BldA) [Moles/Vol] 1.07 mmol/L Low 1.08-1.30 [facility] Comment on above: Order Comment: Speci men Type: VENOUS BLOOD SPECIMENOrdering Facility: [facility] Address: [address] [place] [address] Performed By: #### 2 4344-4 ####[facility] [id number] [place] [address] [place] Carboxyhemoglobin (BldV) [Mass fraction] 0.9 % Normal 0.0-2.0 [facility] Comment on above: Order Comment: Speci men Type: VENOUS BLOOD SPECIMENOrdering Facility: [facility] Address: [address] [place] [address] Result Comment: Carb oxyhemoglobin Reference Range for Smokers: 2.0-8.0% Performed By: #### 2 4344-4 ####[facility] [id number] [address] [address] [place] CO2 (BldV) [Partial pressure] 48 mm[Hg] Normal 42-55 [facility] Comment on above: Order Comment: Speci men Type: VENOUS BLOOD SPECIMENOrdering Facility: [facility] Address: [address] [place], [place] [address] Performed By: #### 2 4344-4 ####[facility] [id number] [address] [address] [place] CO2 adjusted to patient's actual temperature (BldV) [Partial pressure] 47 mmHg Normal 42-55 [facility] Comment on above: Order Comment: Speci men Type: VENOUS BLOOD SPECIMENOrdering Facility: [facility] Address: [address] [place] [address] Performed By: #### 2 4344-4 ####[facility] [id number] [place] [address] [place] FIO2 50 % Normal [facility] Comment on above: Order Comment: Speci men Type: VENOUS BLOOD SPECIMENOrdering Facility: [facility] Address: [address] [place] [address] Performed By: #### 2 4344-4 ####[facility] [id number] [place] [address] [place] Glucose [Mass/Vol] 174 mg/dL High 60-105 [facility] Comment on above: Order Comment: Speci men Type: VENOUS BLOOD SPECIMENOrdering Facility: [facility] Address: [address] [place], [place] [address] Performed By: #### 2 4344-4 ####[facility] [id number] [address] [address] [place] HCO3 (Bld) [Moles/Vol] 20 mmol/L Low 24-28 [facility] Comment on above: Order Comment: Speci men Type: VENOUS BLOOD SPECIMENOrdering Facility: [facility] Address: [address] [place] [address] Performed By: #### 2 4344-4 ####[facility] [id number] [place] [address] [place] Hematocrit (Bld) [Volume fraction] 41.3 % Normal 39.0-51.0 [facility] Comment on above: Order Comment: Speci men Type: VENOUS BLOOD SPECIMENOrdering Facility: [facility] Address: [address] [place] [address] Performed By: #### 2 4344-4 ####[facility] [id number] [place] [address] [place] Hemoglobin (Bld) [Mass/Vol] 13.4 g/dL Normal 13.0-17.0 [facility] Comment on above: Order Comment: Speci men Type: VENOUS BLOOD SPECIMENOrdering Facility: [facility] Address: [address] [place] [address] Performed By: #### 2 4344-4 ####[facility] [id number] [place] [address] [place] Lactate [Moles/Vol] 5.7 mmol/L High 0.5-2.2 [facility] Comment on above: Order Comment: Speci men Type: VENOUS BLOOD SPECIMENOrdering Facility: [facility] Address: [address] [place] [address] Performed By: #### 2 4344-4 ####[facility] [id number] [place] [address] [place] Methemoglobin (Bld) [Mass fraction] 1.7 % High 0.0-1.5 [facility] Comment on above: Order Comment: Speci men Type: VENOUS BLOOD SPECIMENOrdering Facility: [facility] Address: [address] [place] [address] Performed By: #### 2 4344-4 ####[facility] [id number] [address] [address] [place] O2 THERAPY VENT=Ventilator Normal [facility] Comment on above: Order Comment: Speci men Type: VENOUS BLOOD SPECIMENOrdering Facility: [facility] Address: [address] [place] [address] Performed By: #### 2 4344-4 ####[facility] [id number] [address] [address] [place] Oxygen (BldV) [Partial pressure] 55 mm[Hg] High 35-45 [facility] Comment on above: Order Comment: Speci men Type: VENOUS BLOOD SPECIMENOrdering Facility: [facility] Address: [address] [place] [address] Performed By: #### 2 4344-4 ####[facility] [id number] [address] [address] [place] Oxygen adjusted to patient's actual temperature (BldV) [Partial pressure] 53 mmHg High 35-45 [facility] Comment on above: Order Comment: Speci men Type: VENOUS BLOOD SPECIMENOrdering Facility: [facility] Address: [address] [place] [address] Performed By: #### 2 4344-4 ####[facility] [id number] [address] [address] [place] Oxygen saturation in Venous blood 82 % Normal 60-85 [facility] Comment on above: Order Comment: Speci men Type: VENOUS BLOOD SPECIMENOrdering Facility: [facility] Address: [address] [place] [address] Performed By: #### 2 4344-4 ####[facility] [id number] [address] [address] [place] Oxyhemoglobin (BldV) [Mass fraction] 80 % Normal 60-85 [facility] Comment on above: Order Comment: Speci men Type: VENOUS BLOOD SPECIMENOrdering Facility: [facility] Address: [address] [place] [address] Performed By: #### 2 4344-4 ####[facility] [id number] [place] [address] [place] pH (BldV) 7.24 [pH] Low 7.32-7.42 [facility] Comment on above: Order Comment: Speci men Type: VENOUS BLOOD SPECIMENOrdering Facility: [facility] Address: [address] [place] [address] Performed By: #### 2 4344-4 ####[facility] [id number] [place] [address] [place] pH adjusted to patient's actual temperature (BldV) 7.24 Low 7.32-7.42 [facility] Comment on above: Order Comment: Speci men Type: VENOUS BLOOD SPECIMENOrdering Facility: [facility] Address: [address] [place] [address] Performed By: #### 2 4344-4 ####[facility] [id number] [place] [address] [place] Potassium [Moles/Vol] 3.7 mmol/L Normal 3.5-5.0 [facility] Comment on above: Order Comment: Speci men Type: VENOUS BLOOD SPECIMENOrdering Facility: [facility] Address: [address] [place] [address] Performed By: #### 2 4344-4 ####[facility] [id number] [place] [address] [place] Sodium [Moles/Vol] 141 mmol/L Normal 136-144 [facility] Comment on above: Order Comment: Speci men Type: VENOUS BLOOD SPECIMENOrdering Facility: [facility] Address: [address] [place] [address] Performed By: #### 2 4344-4 ####[facility] [id number] [place] [address] [place] Glucose SerPl-mCncon 024 Glucose [Mass/Vol] 110 mg/dL High 74-99 [facility] Comment on above: Order Comment: Jeison parry Type: BLOOD SPECIMENOrdering Facility: [facility] Address: [address] [place] [address] Result Comment: The [place] [employer] (ADA) provides guidance for cutoff values for fasting glucose and random glucose. The ADA defines fasting as no caloric intake for at least 8 hours. Fasting plasma glucose results between 100 to 125 mg/dL indicate increased risk for diabetes (prediabetes).Fasting plasma glucose results greater than or equal to 126 mg/dL meet the criteria for diagnosis of diabetes. In the absence of unequivocal hyperglycemia, results should be confirmed by repeat testing. In a patient with classic symptoms of hyperglycemia or hyperglycemic crisis, random plasma glucose results greater than or equal to 200 mg/dL meet the criteria for diagnosis of diabetes.Reference: Standards of Medical Care in Diabetes 2016, [place] [employer]. Diabetes Care. 2016.39(Suppl 1). Performed By: #### 2 345-7, K1 ####[facility] [id number] [place] [address] [place] Hematocrit Auto (Bld) [Volum e fraction]on 01-23-2024 Hematocrit (Bld) [Volume fraction] 36.8 % Low 39.0-51.0 [facility] Comment on above: Order Comment: Jeison parry Type: BLOOD SPECIMENOrdering Facility: [facility] Address: [address] [place] [address] Performed By: #### 4 544-3 ####[facility] [id number] [place] [address] [place] INTRAOPERATIVE ECHO PREon INTRAOPERATIVE ECHO PRE Normal [facility] No Panel InformationOrdered By: Kristofer Barraza on 01-23-2024 Implantable Lead Connection Status Connected [facility] Work Phone: Implantable Lead Implant Date [id number] [facility] Work 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 [employer] [facility] Work Phone: Lead Channel Measurements Date and Time 2024-01-23 [facility] Work Phone: Zone Setting Status On [facility] Work Phone: OPERATIVE NOon 01-23-2024 OPERATIVE NO Normal [facility] POTASSIUMon 01-23-2024 Potassium [Moles/Vol] 4.4 mmol/L Normal 3.7-5.1 [facility] Comment on above: Order Comment: Jeison parry Type: BLOOD SPECIMENOrdering Facility: [facility] Address: [address] [place] [address] Performed By: #### 2 345-7, K1 ####[facility] [id number] [facility] [id number] [place] [address] [place] PT panel Coag (PPP)on 2023 INR Coag (PPP) [Relative time] 1.1 {INR} Normal 0.9-1.3 [facility] Comment on above: Order Comment: Jeison parry Type: BLOOD SPECIMENOrdering Facility: [facility] Address: [address] [place] [address] Result Comment: Indu min K Antagonist (VKA) Therapeutic Range: INR 2 to 3 (Target INR of 2.5)Note: For patients treated with VKA drugs, such as warfarin, the [place] [employer] 2012 Guideline recommends a therapeutic INR range of 2 to 3 (target INR of 2.5). This recommendation includes high-risk patients with antiphospholipid syndrome with previous arterial or venous thromboembolism, current-generation mechanical or bioprosthetic aortic heart valve replacement.Note: Patients with mechanical aortic valve replacement and additional risk factors for thromboembolic events (atrial fibrillation, previous thromboembolism, LV dysfunction, hypercoagulable conditions) or an older generation mechanical AVR (i.e., ball in-Cage) or any mechanical MVR should have a INR therapeutic range of 2.5 to 3.5 (target INR of 3).Anson MANRIQUEZ, et al. Chest 2012, 141:7S-47SNishimura RA, et al. [facility] 2017, 70: 252-289 Performed By: #### 3 4528-0, 06500-9 ####[facility] [id number] [place] [address] [place] PT Coag (PPP) [Time] 11.6 s Normal 9.7-13.0 [facility] Comment on above: Order Comment: Speci men Type: BLOOD SPECIMENOrdering Facility: [facility] Address: [address] [place] [address] Performed By: #### 3 4528-0, 67741-6 ####[facility] [id number] [place] [address] [place] Platelets Auto (Bld) [#/Vol] on 01-23-2024 Platelets (Bld) [#/Vol] 112 10*3/uL Low 150-400 [facility] Comment on above: Order Comment: Speci men Type: BLOOD SPECIMENOrdering Facility: [facility] Address: [address] [place] [address] Performed By: #### 7 77-3 ####[facility] [id number] [place] [address] [place] VENOUS BLOOD GASES WITH IONI ZED MAGNESIUMon 01-23-2024 Base excess Calc (BldV) [Moles/Vol] 0 mmol/L Normal 0-2 [facility] Comment on above: Order Comment: Speci men Type: VENOUS BLOOD SPECIMENOrdering Facility: [facility] Address: [address] [place] [address] Performed By: #### V ALLMG ####[facility] [id number] [place] [address] [place] Calcium.ionized (Bld) [Mass/Vol] 1.24 mmol/L Normal 1.08-1.30 [facility] Comment on above: Order Comment: Speci men Type: VENOUS BLOOD SPECIMENOrdering Facility: [facility] Address: [address] [place] [address] Performed By: #### V ALLMG ####[facility] [id number] [place] [address] [place] Calcium.ionized adjusted to pH 7.4 (BldA) [Moles/Vol] 1.17 mmol/L Normal 1.08-1.30 [facility] Comment on above: Order Comment: Speci men Type: VENOUS BLOOD SPECIMENOrdering Facility: [facility] Address: [address] [place] [address] Performed By: #### V ALLMG ####[facility] [id number] [place] [address] [place] Carboxyhemoglobin (BldV) [Mass fraction] 1.5 % Normal 0.0-2.0 [facility] Comment on above: Order Comment: Speci men Type: VENOUS BLOOD SPECIMENOrdering Facility: [facility] Address: [address] [place] [address] Result Comment: Carb oxyhemoglobin Reference Range for Smokers: 2.0-8.0% Performed By: #### V ALLMG ####[facility] [id number] [place] [address] [place] CO2 (BldV) [Partial pressure] 55 mm[Hg] Normal 42-55 [facility] Comment on above: Order Comment: Speci men Type: VENOUS BLOOD SPECIMENOrdering Facility: [facility] Address: [address] [place] [address] Performed By: #### V ALLMG ####[facility] [id number] [place] [address] [place] CO2 adjusted to patient's actual temperature (BldV) [Partial pressure] 55 mmHg Normal 42-55 [facility] Comment on above: Order Comment: Speci men Type: VENOUS BLOOD SPECIMENOrdering Facility: [facility] Address: [address] [place] [address] Performed By: #### V ALLMG ####[facility] [id number] [place] [address] [place] Glucose [Mass/Vol] 108 mg/dL High 60-105 [facility] Comment on above: Order Comment: Speci men Type: VENOUS BLOOD SPECIMENOrdering Facility: [facility] Address: [address] [place] [address] Performed By: #### V ALLMG ####[facility] [id number] [place] [address] [place] Order Comment: Speci men Type: ARTERIAL BLOOD SPECIMENOrdering Facility: [facility] Address: [address] [place] [address] Performed By: #### A LLMG ####[facility] [id number] [place] [address] [place] HCO3 (Bld) [Moles/Vol] 26 mmol/L Normal 24-28 [facility] Comment on above: Order Comment: Speci men Type: VENOUS BLOOD SPECIMENOrdering Facility: [facility] Address: [address] [place] [address] Performed By: #### V ALLMG ####[facility] [id number] [place] [address] [place] Hematocrit (Bld) [Volume fraction] 34.5 % Low 39.0-51.0 [facility] Comment on above: Order Comment: Speci men Type: VENOUS BLOOD SPECIMENOrdering Facility: [facility] Address: [address] [place] [address] Performed By: #### V ALLMG ####[facility] [id number] [place] [address] [place] Hemoglobin (Bld) [Mass/Vol] 11.2 g/dL Low 13.0-17.0 [facility] Comment on above: Order Comment: Speci men Type: VENOUS BLOOD SPECIMENOrdering Facility: [facility] Address: [address] [place] [address] Performed By: #### V ALLMG ####[facility] [id number] [place] [address] [place] Lactate [Moles/Vol] 2.2 mmol/L Normal 0.5-2.2 [facility] Comment on above: Order Comment: Speci men Type: VENOUS BLOOD SPECIMENOrdering Facility: [facility] Address: [address] [place] [address] Performed By: #### V ALLMG ####[facility] [id number] [place] [address] [place] Magnesium [Moles/Vol] 0.57 mmol/L Normal 0.45-0.60 [facility] Comment on above: Order Comment: Speci men Type: VENOUS BLOOD SPECIMENOrdering Facility: [facility] Address: [address] [place] [address] Performed By: #### V ALLMG ####[facility] [id number] [place] [address] [place] Methemoglobin (Bld) [Mass fraction] 0.8 % Normal 0.0-1.5 [facility] Comment on above: Order Comment: Speci men Type: VENOUS BLOOD SPECIMENOrdering Facility: [facility] Address: [address] [place] [address] Performed By: #### V ALLMG ####[facility] [id number] [place] [address] [place] Oxygen (BldV) [Partial pressure] 60 mm[Hg] High 35-45 [facility] Comment on above: Order Comment: Speci men Type: VENOUS BLOOD SPECIMENOrdering Facility: [facility] Address: [address] [place] [address] Performed By: #### V ALLMG ####[facility] [id number] [place] [address] [place] Oxygen adjusted to patient's actual temperature (BldV) [Partial pressure] 60 mmHg High 35-45 [facility] Comment on above: Order Comment: Speci men Type: VENOUS BLOOD SPECIMENOrdering Facility: [facility] Address: [address] [place] [address] Performed By: #### V ALLMG ####[facility] [id number] [place] [address] [place] Oxygen saturation in Venous blood 88 % High 60-85 [facility] Comment on above: Order Comment: Speci men Type: VENOUS BLOOD SPECIMENOrdering Facility: [facility] Address: [address] [place] [address] Performed By: #### V ALLMG ####[facility] [id number] [place] [address] [place] Oxyhemoglobin (BldV) [Mass fraction] 86 % High 60-85 [facility] Comment on above: Order Comment: Speci men Type: VENOUS BLOOD SPECIMENOrdering Facility: [facility] Address: [address] [place] [address] Performed By: #### V ALLMG ####[facility] [id number] [place] [address] [place] pH (BldV) 7.30 [pH] Low 7.32-7.42 [facility] Comment on above: Order Comment: Speci men Type: VENOUS BLOOD SPECIMENOrdering Facility: [facility] Address: [address] [place] [address] Performed By: #### V ALLMG ####[facility] [id number] [place] [address] [place] pH adjusted to patient's actual temperature (BldV) 7.30 Low 7.32-7.42 [facility] Comment on above: Order Comment: Speci men Type: VENOUS BLOOD SPECIMENOrdering Facility: [facility] Address: [address] [place] [id number] Performed By: #### V ALLMG ####[facility] [id number] [place] [address] [place] Potassium [Moles/Vol] 4.5 mmol/L Normal 3.5-5.0 [facility] Comment on above: Order Comment: Speci men Type: VENOUS BLOOD SPECIMENOrdering Facility: [facility] Address: [address] [place] [address] Performed By: #### V ALLMG ####[facility] [id number] [address] [place] Order Comment: Speci men Type: ARTERIAL BLOOD SPECIMENOrdering Facility: [facility] Address: [address] [place] [address] Performed By: #### A LLMG ####[facility] [id number] [place] [address] [place] Sodium [Moles/Vol] 141 mmol/L Normal 136-144 [facility] Comment on above: Order Comment: Speci men Type: VENOUS BLOOD SPECIMENOrdering Facility: [facility] Address: [address] [place] [address] Performed By: #### V ALLMG ####[facility] [id number] [place] [address] [place] Order Comment: Speci men Type: ARTERIAL BLOOD SPECIMENOrdering Facility: [facility] Address: [address] [place], [place] [address] Performed By: #### A LLMG ####[facility] [id number] [place] [address] [place] XR CHEST 1V FRONTAL PORTon 1 XR CHEST 1V FRONTAL PORT Normal [facility] XR CHEST 1V FRONTAL PORT Normal [facility] aPTT PPPon 01-23-2024 aPTT Coag (PPP) [Time] 25.9 s Normal 23.0-32.4 [facility] Comment on above: Order Comment: Speci men Type: BLOOD SPECIMENOrdering Facility: [facility] Address: [address] [place] [address] Performed By: #### 3 4528-0, 81387-9 ####[facility] [id number] [place] [address] [place] CNCNPATEDon 01-22-2024 CNCNPATED Normal [facility] CNOVon 01-22-2024 CNOV Normal [facility] STAPHYLOCOCCUS AUREUS AND MR SA SCREEN, PCR, NASALon 01-22-2024 S. aureus and MRSA panel ARTIS+probe (Nose) Not detected Normal Not Detected [facility] Comment on above: Order Comment: Speci men Type: SWABOrdering Facility: [facility] Address: [address] [place] [address] Performed By: #### S APCR ####[facility] [id number] [place] [address] [place] CBC W Auto Differential pane l (Bld)on 01-19-2024 Basophils (Bld) [#/Vol] 0.09 10*3/uL Normal <0.11 [facility] Comment on above: Order Comment: Speci men Type: BLOOD SPECIMENOrdering Facility: [facility] Address: [address] [place] [address] Performed By: #### 5 7021-8 ####[facility] [id number] [place] [address] [place] Basophils/100 WBC (Bld) 1.1 % Normal [facility] Comment on above: Order Comment: Speci men Type: BLOOD SPECIMENOrdering Facility: [facility] Address: [address] [place] [address] Performed By: #### 5 7021-8 ####[facility] [id number] [place] [address] [place] Differential cell count method Nom (Bld) Auto Normal [facility] Comment on above: Order Comment: Speci men Type: BLOOD SPECIMENOrdering Facility: [facility] Address: [address] [place] [address] Performed By: #### 5 7021-8 ####[facility] [id number] [place] [address] [place] Eosinophils (Bld) [#/Vol] 0.28 10*3/uL Normal <0.46 [facility] Comment on above: Order Comment: Speci men Type: BLOOD SPECIMENOrdering Facility: [facility] Address: [address] [place] [address] Performed By: #### 5 7021-8 ####[facility] [id number] [place] [address] [place] Eosinophils/100 WBC (Bld) 3.4 % Normal [facility] Comment on above: Order Comment: Speci men Type: BLOOD SPECIMENOrdering Facility: [facility] Address: [address] [place] [address] Performed By: #### 5 7021-8 ####[facility] [id number] [place] [address] [place] Erythrocyte distribution width (RBC) [Ratio] 14.9 % Normal 11.5-15.0 [facility] Comment on above: Order Comment: Speci men Type: BLOOD SPECIMENOrdering Facility: [facility] Address: [address] [place] [address] Performed By: #### 5 7021-8 ####[facility] [id number] [place] [address] [place] Hematocrit (Bld) [Volume fraction] 42.7 % Normal 39.0-51.0 [facility] Comment on above: Order Comment: Speci men Type: BLOOD SPECIMENOrdering Facility: [facility] Address: [address] [place] [address] Performed By: #### 5 7021-8 ####[facility] [id number] [place] [address] [place] Hemoglobin (Bld) [Mass/Vol] 13.8 g/dL Normal 13.0-17.0 [facility] Comment on above: Order Comment: Speci men Type: BLOOD SPECIMENOrdering Facility: [facility] Address: [address] [place] [address] Performed By: #### 5 7021-8 ####[facility] [id number] [place] [address] [place] Immature granulocytes (Bld) [#/Vol] 0.05 10*3/uL Normal <0.10 [facility] Comment on above: Order Comment: Speci men Type: BLOOD SPECIMENOrdering Facility: [facility] Address: [address] [place] [address] Performed By: #### 5 7021-8 ####[facility] [id number] [place] [address] [place] Immature granulocytes/100 WBC (Bld) 0.6 % Normal [facility] Comment on above: Order Comment: Speci men Type: BLOOD SPECIMENOrdering Facility: [facility] Address: [address] [place] [address] Performed By: #### 5 7021-8 ####[facility] [id number] [place] [address] [place] Lymphocytes (Bld) [#/Vol] 2.35 10*3/uL Normal 1.00-4.00 [facility] Comment on above: Order Comment: Speci men Type: BLOOD SPECIMENOrdering Facility: [facility] Address: [address] [place] [address] Performed By: #### 5 7021-8 ####[facility] [id number] [place] [address] [place] Lymphocytes/100 WBC (Bld) 28.5 % Normal [facility] Comment on above: Order Comment: Speci men Type: BLOOD SPECIMENOrdering Facility: [facility] Address: [address] [place] [address] Performed By: #### 5 7021-8 ####[facility] [id number] [place] [address] [place] MCH (RBC) [Entitic mass] 27.5 pg Normal 26.0-34.0 [facility] Comment on above: Order Comment: Speci men Type: BLOOD SPECIMENOrdering Facility: [facility] Address: [address] [place] [address] Performed By: #### 5 7021-8 ####[facility] [id number] [place] [address] [place] MCHC (RBC) [Mass/Vol] 32.3 g/dL Normal 30.5-36.0 [facility] Comment on above: Order Comment: Speci men Type: BLOOD SPECIMENOrdering Facility: [facility] Address: [address] [place] [address] Performed By: #### 5 7021-8 ####[facility] [id number] [place] [address] [place] MCV (RBC) [Entitic vol] 85.2 fL Normal 80.0-100.0 [facility] Comment on above: Order Comment: Speci men Type: BLOOD SPECIMENOrdering Facility: [facility] Address: [address] [place] [address] Performed By: #### 5 7021-8 ####[facility] [id number] [place] [address] [place] Monocytes (Bld) [#/Vol] 0.71 10*3/uL Normal <0.87 [facility] Comment on above: Order Comment: Speci men Type: BLOOD SPECIMENOrdering Facility: [facility] Address: [address] [id number] Performed By: #### 5 7021-8 ####[facility] [id number] [place] [id number] [place] Monocytes/100 WBC (Bld) 8.6 % Normal [facility] Comment on above: Order Comment: Speci men Type: BLOOD SPECIMENOrdering Facility: [facility] Address: [address] [place] [address] Performed By: #### 5 7021-8 ####[facility] [id number] [place] [address] [place] Neutrophils (Bld) [#/Vol] 4.77 10*3/uL Normal 1.45-7.50 [facility] Comment on above: Order Comment: Speci men Type: BLOOD SPECIMENOrdering Facility: [facility] Address: [address] [place] [address] Performed By: #### 5 7021-8 ####[facility] [id number] [place] [address] [place] Neutrophils/100 WBC (Bld) 57.8 % Normal [facility] Comment on above: Order Comment: Speci men Type: BLOOD SPECIMENOrdering Facility: [facility] Address: [address] [place] [address] Performed By: #### 5 7021-8 ####[facility] [id number] [place] [id number] [place] Nucleated RBC (Bld) [#/Vol] 10*3/uL Normal <0.01 [facility] Comment on above: Order Comment: Speci men Type: BLOOD SPECIMENOrdering Facility: [facility] Address: [address] [place], [place] [address] Performed By: #### 5 7021-8 ####[facility] [id number] [place] [address] [place] Nucleated RBC/100 WBC (Bld) [Ratio] 0.0 /100 WBC Normal [facility] Comment on above: Order Comment: Speci men Type: BLOOD SPECIMENOrdering Facility: [facility] Address: [address] [place] [address] Performed By: #### 5 7021-8 ####[facility] [id number] [place] [address] [place] Platelet mean volume (Bld) [Entitic vol] 10.5 fL Normal 9.0-12.7 [facility] Comment on above: Order Comment: Speci men Type: BLOOD SPECIMENOrdering Facility: [facility] Address: [address] [place] [address] Performed By: #### 5 7021-8 ####[facility] [id number] [place] [address] [place] Platelets (Bld) [#/Vol] 211 10*3/uL Normal 150-400 [facility] Comment on above: Order Comment: Speci men Type: BLOOD SPECIMENOrdering Facility: [facility] Address: [address] [place] [address] Performed By: #### 5 7021-8 ####[facility] [id number] [place] [address] [place] RBC (Bld) [#/Vol] 5.01 10*6/uL Normal 4.20-6.00 [facility] Comment on above: Order Comment: Speci men Type: BLOOD SPECIMENOrdering Facility: [facility] Address: [address] [place] [address] Performed By: #### 5 7021-8 ####[facility] [id number] [place] [address] [place] WBC (Bld) [#/Vol] 8.25 10*3/uL Normal 3.70-11.00 [facility] Comment on above: Order Comment: Speci men Type: BLOOD SPECIMENOrdering Facility: [facility] Address: [address] [place] [address] Performed By: #### 5 7021-8 ####[facility] [id number] [place] [address] [place] CNOVon 01-19-2024 CNOV Normal [facility] CONFIRM BLOOD TYPEon 024 ABO O Normal [facility] Comment on above: Order Comment: Speci men Type: BLOOD SPECIMENOrdering Facility: [facility] Address: [address] [place] [address] Performed By: #### C ONABO ####[facility] BLOOD BANKCLIA [id number] [place] [address] [place] Rh Nom (Bld) Positive Normal [facility] Comment on above: Order Comment: Speci men Type: BLOOD SPECIMENOrdering Facility: [facility] Address: [address] [place] [address] Performed By: #### C ONABO ####[facility] BLOOD BANKCLIA [id number] [place] [address] [place] CREATININE, BLOOD (POC)on Creatinine [Mass/Vol] 1.20 mg/dL 0.7 - 1.4 mg/dL [facility] eGFR (POCT) mL/min/1.73 m2 [facility] Location:Radiology [facility], [address] [place] [address], [address] [place] [address] POINT OF CARE [facility] CTA C/A/P (GATED) W IVCONon 01-19-2024 CTA C/A/P (GATED) W IVCON Normal [facility] CTA Chest vessels and Abdomi nal vessels and Pelvis vessels W contrast David 01-19-2024 IMPRESSION: Moderate left atrial enlargement. The mitral valve leaflets are moderately thickened, somewhat redundant, but noncalcified. Normal thoracic and abdominal aorta. No acute aortic pathology identified. The pelvic arteries, including the common femoral arteries are normal in course, caliber, and contour. The minimal luminal caliber throughout = 12 mm Frozen Yogurt Maker: [facility] Transcribe Date/Time: Jan 19 2024 10:29A Dictated by : LUKE JOHNSON MD This examination was interpreted and the report reviewed and electronically signed by: LUKE JOHNSON MD on Jan 19 2024 10:47AM [facility] DIVISION OF RADIOLOGY * * *Final Report* * * DATE OF EXAM: Jan 19 2024 10:21AM [facility] 0133 - CTA C/A/P (GATED) W IVCON / PROCEDURE REASON: multiple diagnoses * * * * Physician Interpretation * * * * CTA Aorta chest, abdomen, and pelvis Direct Image Comparison: None HISTORY: 68 years old Male with h/o mitral valve regurgitation Evaluation for further treatment options, including standard and minimally invasive/robotically assisted cardiothoracic surgery. There is request to define thoracic and aortic anatomy TECHNIQUE: SCANNER: Multi-detector scanner PROTOCOL: Prospectively triggered helical high-pitch acquisitions ( triggered Flash-mode ) was performed following the intravenous administration of contrast material. Scan Range: thoracic inlet through the ischial tuberosities CT Dose-Length Product (DLP): 386 mGy*cm CT Dose Reduction Employed: Automated exposure control(AEC) and iterative recon CONTRAST: IV administration of 100 ml Omnipaque 350 Scan acquisition: uncomplicated Macro Version: [id number]:[id number]_7 For optimization of anatomic evaluation, advanced 3-D off-line postprocessing was performed on a dedicated workstation by the interpreting physician. STUDY LIMITATIONS: None. RESULT: LINES, TUBES and DEVICES: None PPM device over the left anterior chest wall, with transvenous leads extending to the RA and RV CHEST: Chest wall anatomy: unremarkable. LUNGS: . Small calcified lung nodules. MEDIASTINUM: calcified mediastinal and hilar lymph nodes. PERICARDIUM: unremarkable CENTRAL PULMONARY ARTERY: normal dimensions. Assessment is limited due to limited contrast enhancement. CARDIAC CHAMBERS: LEFT VENTRICLE: normal size. RIGHT VENTRICLE: normal size Left Atrium: moderately dilated. ROSALBA: normal. Right Atrium: normal size CENTRAL VENOUS and PULMONARY VENOUS RETURN: normal. Coronary Sinus: normal size MITRAL VALVE: assessment is limited in the current study - no leaflet calcification. No annular calcification TRICUSPID and PULMONIC VALVE: appear unremarkable. CORONARY ANATOMY: normal origin of the coronary arteries. Mild calcified atherosclerotic changes of the coronary arteries. However, the current study is not optimized for coronary assessment. AORTIC VALVE: assessment is limited, appears trileaflet. No leaflet calcification. AORTA: Pathology: No acute aortic pathology. Intervention: None Complications: n/a Aortic Size: Normal size thoracic and abdominal aorta. STJ: maintained. Wall Changes: scattered mild partially calcified wall changes. Arch Branch Vessels: Patent, normal size proximal segments of the arch branch vessels, without evidence of wall changes. Visceral Branch Vessels: Patent, normal size proximal segments of the visceral branch vessels and renal arteries, without evidence of wall changes. Iliac Arteries: Patent, normal size iliac arteries, with minimal partially calcified wall changes. AORTIC DIMENSIONS: Normal size thoracic and abdominal aorta. AORTIC ROOT: 3.2 cm measured [id number]-pc-fqovp mid ASCENDING THORACIC AORTA: 3.3 cm mid AORTIC ARCH: 2.7 cm mid DESCENDING THORACIC AORTA: 2.5 cm JUXTARENAL ABDOMINAL AORTA (level of SMA): 2.6 cm mid INFRARENAL ABDOMINAL AORTA: 2.0 cm Diameter Left and Right Common Iliac Arteries minimal luminal diameter: 13 / 13 mm respectively Diameter Left and Right External Iliac Arteries minimal luminal diameter: 12 / 12 mm respectively RELATIONSHIP OF THE CARDIOVASCULAR STRUCTURES OF THE STERNUM: Left brachio-cephalic vein lies 23 mm behind the manubrium sternum RV lies 11 mm behind the lower sternum Aorta lies 40 mm behind the upper sternum ABDOMEN Gallbladder: unremarkable. Liver: unremarkable. Spleen: unremarkable. Adrenal glands: unremarkable. Pancreas: unremarkable. Kidneys: unremarkable. Bowel: appears unremarkable within limitations of non-GI contrast examination. PELVIS: Bladder: unremarkable. BONES and SOFT TISSUES: degenerative changes of the thoracic and lumbar spine. Coke Crane Operator (topogram) images: No additional findings. DIVISION OF RADIOLOGY Provider, [facility] - 01/19/2024 * * *Final Report* * * DATE OF EXAM: Jan 19 2024 10:21AM JQC 0133 - CTA C/A/P (GATED) W IVCON / PROCEDURE REASON: multiple diagnoses * * * * Physician Interpretation * * * * CTA Aorta chest, abdomen, and pelvis Direct Image Comparison: None HISTORY: 68 years old Male with h/o mitral valve regurgitation Evaluation for further treatment options, including standard and minimally invasive/robotically assisted cardiothoracic surgery. There is request to define thoracic and aortic anatomy TECHNIQUE: SCANNER: Multi-detector scanner PROTOCOL: Prospectively triggered helical high-pitch acquisitions ( triggered Flash-mode ) was performed following the intravenous administration of contrast material. Scan Range: thoracic inlet through the ischial tuberosities CT Dose-Length Product (DLP): 386 mGy*cm CT Dose Reduction Employed: Automated exposure control(AEC) and iterative recon CONTRAST: IV administration of 100 ml Omnipaque 350 Scan acquisition: uncomplicated Macro Version: [id number]:[id number]_7 For optimization of anatomic evaluation, advanced 3-D off-line postprocessing was performed on a dedicated workstation by the interpreting physician. STUDY LIMITATIONS: None. RESULT: LINES, TUBES and DEVICES: None PPM device over the left anterior chest wall, with transvenous leads extending to the RA and RV CHEST: Chest wall anatomy: unremarkable. LUNGS: . Small calcified lung nodules. MEDIASTINUM: calcified mediastinal and hilar lymph nodes. PERICARDIUM: unremarkable CENTRAL PULMONARY ARTERY: normal dimensions. Assessment is limited due to limited contrast enhancement. CARDIAC CHAMBERS: LEFT VENTRICLE: normal size. RIGHT VENTRICLE: normal size Left Atrium: moderately dilated. ROSALBA: normal. Right Atrium: normal size CENTRAL VENOUS and PULMONARY VENOUS RETURN: normal. Coronary Sinus: normal size MITRAL VALVE: assessment is limited in the current study - no leaflet calcification. No annular calcification TRICUSPID and PULMONIC VALVE: appear unremarkable. CORONARY ANATOMY: normal origin of the coronary arteries. Mild calcified atherosclerotic changes of the coronary arteries. However, the current study is not optimized for coronary assessment. AORTIC VALVE: assessment is limited, appears trileaflet. No leaflet calcification. AORTA: Pathology: No acute aortic pathology. Intervention: None Complications: n/a Aortic Size: Normal size thoracic and abdominal aorta. STJ: maintained. Wall Changes: scattered mild partially calcified wall changes. Arch Branch Vessels: Patent, normal size proximal segments of the arch branch vessels, without evidence of wall changes. Visceral Branch Vessels: Patent, normal size proximal segments of the visceral branch vessels and renal arteries, without evidence of wall changes. Iliac Arteries: Patent, normal size iliac arteries, with minimal partially calcified wall changes. AORTIC DIMENSIONS: Normal size thoracic and abdominal aorta. AORTIC ROOT: 3.2 cm measured dqenx-wt-xkwtp mid ASCENDING THORACIC AORTA: 3.3 cm mid AORTIC ARCH: 2.7 cm mid DESCENDING THORACIC AORTA: 2.5 cm JUXTARENAL ABDOMINAL AORTA (level of SMA): 2.6 cm mid INFRARENAL ABDOMINAL AORTA: 2.0 cm Diameter Left and Right Common Iliac Arteries minimal luminal diameter: 13 / 13 mm respectively Diameter Left and Right External Iliac Arteries minimal luminal diameter: 12 / 12 mm respectively RELATIONSHIP OF THE CARDIOVASCULAR STRUCTURES OF THE STERNUM: Left brachio-cephalic vein lies 23 mm behind the manubrium sternum RV lies 11 mm behind the lower sternum Aorta lies 40 mm behind the upper sternum ABDOMEN Gallbladder: unremarkable. Liver: unremarkable. Spleen: unremarkable. Adrenal glands: unremarkable. Pancreas: unremarkable. Kidneys: unremarkable. Bowel: appears unremarkable within limitations of non-GI contrast examination. PELVIS: Bladder: unremarkable. BONES and SOFT TISSUES: degenerative changes of the thoracic and lumbar spine. Coke Crane Operator (topogram) images: No additional findings. IMPRESSION IMPRESSION: Moderate left atrial enlargement. The mitral valve leaflets are moderately thickened, somewhat redundant, but noncalcified. Normal thoracic and abdominal aorta. No acute aortic pathology identified. The pelvic arteries, including the common femoral arteries are normal in course, caliber, and contour. The minimal luminal caliber throughout = 12 mm Frozen Yogurt [facility] Transcribe Date/Time: Jan 19 2024 10:29A Dictated by : LUKE JOHNSON MD This examination was interpreted and the report reviewed and electronically signed by: LUKE JOHNSON MD on Jan 19 2024 10:47AM EST [facility] Radiology Study observation (narrative) [facility] CTA Chest vessels and Abdomi nal vessels and Pelvis vessels W contrast IVOrdered By: [facility]cf Provider on 01-19-2024 [facility] Comprehensive metabolic 2000 panelon 01-19-2024 Albumin [Mass/Vol] 4.5 g/dL Normal 3.9-4.9 [facility] Comment on above: Order Comment: Speci men Type: BLOOD SPECIMENOrdering Facility: [facility] Address: [address] [place] [address] Performed By: #### 2 4323-8, 2532-0 ####[facility] [id number] [address] [address] [place] ALP [Catalytic activity/Vol] 66 U/L Normal 38-113 [facility] Comment on above: Order Comment: Speci men Type: BLOOD SPECIMENOrdering Facility: [facility] Address: [address] [id number] Performed By: #### 2 432-8, 2531-0 ####[facility] [id number] [place] [address] [place] ALT [Catalytic activity/Vol] 28 U/L Normal 10-54 [facility] Comment on above: Order Comment: Speci men Type: BLOOD SPECIMENOrdering Facility: [facility] Address: [address] [place] [address] Performed By: #### 2 4328, 2531-0 ####[facility] [id number] [place] [address] [place] Anion gap [Moles/Vol] 14 mmol/L Normal 8-15 [facility] Comment on above: Order Comment: Speci men Type: BLOOD SPECIMENOrdering Facility: [facility] Address: [address] [place] [address] Performed By: #### 2 432-8, 2531-0 ####[facility] [id number] [place] [address] [place] AST [Catalytic activity/Vol] 21 U/L Normal 14-40 [facility] Comment on above: Order Comment: Speci men Type: BLOOD SPECIMENOrdering Facility: [facility] Address: [address] [place] [address] Performed By: #### 2 4328, 2531-0 ####[facility] [id number] [place] [id number] [place] Bilirubin [Mass/Vol] 0.6 mg/dL Normal 0.2-1.3 [facility] Comment on above: Order Comment: Speci men Type: BLOOD SPECIMENOrdering Facility: [facility] Address: [address] [place] [address] Performed By: #### 2 4328, 2531-0 ####[facility] [id number] [address] [address] [place] Calcium [Mass/Vol] 9.4 mg/dL Normal 8.5-10.2 [facility] Comment on above: Order Comment: Speci men Type: BLOOD SPECIMENOrdering Facility: [facility] Address: [address] [place] [address] Performed By: #### 2 4323-8, 2531-0 ####[facility] [id number] [place] [address] [place] Chloride [Moles/Vol] 103 mmol/L Normal 98-107 [facility] Comment on above: Order Comment: Speci men Type: BLOOD SPECIMENOrdering Facility: [facility] Address: [address] [place] [address] Performed By: #### 2 4328, 2531-0 ####[facility] [id number] [place] [address] [place] CO2 [Moles/Vol] 25 mmol/L Normal 22-30 [facility] Comment on above: Order Comment: Speci men Type: BLOOD SPECIMENOrdering Facility: [facility] Address: [address] [place] [address] Performed By: #### 2 4323-8, 2531-0 ####[facility] [id number] [place] [address] [place] Creatinine [Mass/Vol] 1.14 mg/dL Normal 0.73-1.22 [facility] Comment on above: Order Comment: Speci men Type: BLOOD SPECIMENOrdering Facility: [facility] Address: [address] [place] [address] Performed By: #### 2 4323-8, 2532-0 ####[facility] [id number] [place] [address] [place] Creatinine and Glomerular filtration rate.predicted panel (S/P/Bld) 71 mL/min/1.73m??? Normal >=60 [facility] Comment on above: Order Comment: Jeison parry Type: BLOOD SPECIMENOrdering Facility: [facility] Address: [address] [place] [address] Result Comment: Talisha mated Glomerular Filtration Rate (eGFR) is calculated using the 2020 CKD-EPI creatinine equation. This equation utilizes serum creatinine, sex, and age as parameters. The creatinine assay has traceable calibration to isotope dilution-mass spectrometry. Refer to KDIGO guidelines for clinical interpretation. In patients with unstable renal function, e.g. those with acute kidney injury, the eGFR may not accurately reflect actual GFR. Performed By: #### 2 4323-8, 0 ####[facility] [id number] [place] [address] [place] Glucose [Mass/Vol] 80 mg/dL Normal 74-99 [facility] Comment on above: Order Comment: Jeison parry Type: BLOOD SPECIMENOrdering Facility: [facility] Address: [address] [place] [address] Result Comment: The [place] Diabetes [employer] (ADA) provides guidance for cutoff values for fasting glucose and random glucose. The ADA defines fasting as no caloric intake for at least 8 hours. Fasting plasma glucose results between 100 to 125 mg/dL indicate increased risk for diabetes (prediabetes).Fasting plasma glucose results greater than or equal to 126 mg/dL meet the criteria for diagnosis of diabetes. In the absence of unequivocal hyperglycemia, results should be confirmed by repeat testing. In a patient with classic symptoms of hyperglycemia or hyperglycemic crisis, random plasma glucose results greater than or equal to 200 mg/dL meet the criteria for diagnosis of diabetes.Reference: Standards of Medical Care in Diabetes 2016, [place] [employer]. Diabetes Care. 2016.39(Suppl 1). Performed By: #### 2 4323-8, 0 ####[facility] [id number] [place] [address] [place] Potassium [Moles/Vol] 4.7 mmol/L Normal 3.7-5.1 [facility] Comment on above: Order Comment: Speci men Type: BLOOD SPECIMENOrdering Facility: [facility] Address: [address] [place], [place] [address] Performed By: #### 2 4323-8, 2531-0 ####[facility] [id number] [place] [address] [place] Protein [Mass/Vol] 6.6 g/dL Normal 6.3-8.0 [facility] Comment on above: Order Comment: Speci men Type: BLOOD SPECIMENOrdering Facility: [facility] Address: [address] [place] [address] Performed By: #### 2 4323-8, 2531-0 ####[facility] [id number] [place] [address] [place] Sodium [Moles/Vol] 142 mmol/L Normal 136-144 [facility] Comment on above: Order Comment: Speci men Type: BLOOD SPECIMENOrdering Facility: [facility] Address: [address] [place] [address] Performed By: #### 2 4323-8, 2531-0 ####[facility] [id number] [place] [address] [place] Urea nitrogen [Mass/Vol] 21 mg/dL Normal 9-24 [facility] Comment on above: Order Comment: Speci men Type: BLOOD SPECIMENOrdering Facility: [facility] Address: [address] [place] [address] Performed By: #### 2 4323-8, 2531-0 ####[facility] [id number] [place] [id number] [place] ECG COMPLETEon 01-19-2024 ECG COMPLETE Normal [facility] LDH SerPl-cCncon 01-19-2024 LDH [Catalytic activity/Vol] 211 U/L Normal 135-225 [facility] Comment on above: Order Comment: Speci men Type: BLOOD SPECIMENOrdering Facility: [facility] Address: [address] [place] [address] Performed By: #### 2 4323-8, 2532-0 ####[facility] [id number] [place] [address] [place] PT panel Coag (PPP)on 2023 INR Coag (PPP) [Relative time] 1.0 {INR} Normal 0.9-1.3 [facility] Comment on above: Order Comment: Speci men Type: BLOOD SPECIMENOrdering Facility: [facility] Address: [address] [place] [address] Result Comment: Indu min K Antagonist (VKA) Therapeutic Range: INR 2 to 3 (Target INR of 2.5)Note: For patients treated with VKA drugs, such as warfarin, the [employer] 2012 Guideline recommends a therapeutic INR range of 2 to 3 (target INR of 2.5). This recommendation includes high-risk patients with antiphospholipid syndrome with previous arterial or venous thromboembolism, current-generation mechanical or bioprosthetic aortic heart valve replacement.Note: Patients with mechanical aortic valve replacement and additional risk factors for thromboembolic events (atrial fibrillation, previous thromboembolism, LV dysfunction, hypercoagulable conditions) or an older generation mechanical AVR (i.e., ball in-Cage) or any mechanical MVR should have a INR therapeutic range of 2.5 to 3.5 (target INR of 3).Anson GH, et al. Chest 2012, 141:7S-47SNishimura RA, et al. [facility] 2017, 70: 252-289 Performed By: #### 3 4528-0, 18117-5 ####[facility] [id number] [place] [id number] [place] PT Coag (PPP) [Time] 10.4 s Normal 9.7-13.0 [facility] Comment on above: Order Comment: Speci men Type: BLOOD SPECIMENOrdering Facility: [facility] Address: [address] [place] [address] Performed By: #### 3 4528-0, 95278-1 ####[facility] [id number] [place] [address] [place] TYPE AND SCREEN,30 DAYon ABO O Normal [facility] Comment on above: Order Comment: Speci men Type: BLOOD SPECIMENOrdering Facility: [facility] Address: [address] [place] [address] Performed By: #### T SCR30 ####[facility] BLOOD BANKCLIA [id number] [place] [address] [place] HISTORICAL AB SCR STATUS Negative Normal [facility] Comment on above: Order Comment: Speci men Type: BLOOD SPECIMENOrdering Facility: [facility] Address: [address] [place] [address] Performed By: #### T SCR30 ####[facility] BLOOD BANKIA [id number] [place] [address] [place] Rh Nom (Bld) Positive Normal [facility] Comment on above: Order Comment: Speci men Type: BLOOD SPECIMENOrdering Facility: [facility] Address: [address] [place] [address] Performed By: #### T SCR30 ####[facility] BLOOD BANKIA [id number] [place] [address] [place] URINALYSIS, DIPSTICK ONLYon 01-19-2024 Bilirubin Ql (U) Negative Normal Negative [facility] Comment on above: Order Comment: Speci men Type: URINE SPECIMENOrdering Facility: [facility] Address: [address] [place] [address] Performed By: #### U A ####[facility] [id number] [place] [address] [place] Clarity (Unsp spec) Clear Normal Clear [facility] Comment on above: Order Comment: Speci men Type: URINE SPECIMENOrdering Facility: [facility] Address: [address] [place] [address] Performed By: #### U A ####[facility] [id number] [place] [address] [place] Color (U) Yellow Normal Yellow [facility] Comment on above: Order Comment: Speci men Type: URINE SPECIMENOrdering Facility: [facility] Address: [address] [place] [address] Performed By: #### U A ####[facility] [id number] [place] [address] [place] Glucose Test strip (U) [Mass/Vol] 2+ Abnormal Negative [facility] Comment on above: Order Comment: Speci men Type: URINE SPECIMENOrdering Facility: [facility] Address: [address] [place] [address] Performed By: #### U A ####[facility] [id number] [place] [address] [place] Hemoglobin Ql (U) Negative Normal Negative [facility] Comment on above: Order Comment: Speci men Type: URINE SPECIMENOrdering Facility: [facility] Address: [address] [place] [address] Performed By: #### U A ####[facility] [id number] [place] [address] [place] Ketones Ql (U) Negative Normal Negative [facility] Comment on above: Order Comment: Speci men Type: URINE SPECIMENOrdering Facility: [facility] Address: [address] [place] [address] Performed By: #### U A ####[facility] [id number] [place] [address] [place] Leukocyte esterase Test strip Ql (U) Negative Normal Negative [facility] Comment on above: Order Comment: Speci men Type: URINE SPECIMENOrdering Facility: [facility] Address: [address] [place] [address] Performed By: #### U A ####[facility] [id number] [place] [address] [place] Nitrite Ql (U) Negative Normal Negative [facility] Comment on above: Order Comment: Speci men Type: URINE SPECIMENOrdering Facility: [facility] Address: [address] [place] [address] Performed By: #### U A ####[facility] [id number] [place] [address] [place] pH (U) 6.0 [pH] Normal <8.5 [facility] Comment on above: Order Comment: Speci men Type: URINE SPECIMENOrdering Facility: [facility] Address: [address] [place] [address] Performed By: #### U A ####[facility] [id number] [place] [address] [place] Protein (U) [Mass/Vol] Negative Normal Negative [facility] Comment on above: Order Comment: Speci men Type: URINE SPECIMENOrdering Facility: [facility] Address: [address] [place] [address] Performed By: #### U A ####[facility] [id number] [place] [address] [place] Specific gravity (U) [Rel density] 1.010 Normal 1.005-1.030 [facility] Comment on above: Order Comment: Speci men Type: URINE SPECIMENOrdering Facility: [facility] Address: [address] [place] [address] Performed By: #### U A ####[facility] [id number] [place] [address] [place] Urobilinogen Ql (U) 0.2 EU/dL Normal 0.2-1.0 EU/dL [facility] Comment on above: Order Comment: Speci men Type: URINE SPECIMENOrdering Facility: [facility] Address: [address] [place] [address] Performed By: #### U A ####[facility] [id number] [facility]ENTERImt[facility] MCKEE [id number] [place], [place] [id number] [place] XR CHEST 2V FRONTAL/LATon XR CHEST 2V FRONTAL/LAT Normal [facility] XR Chest PA and Lateralon IMPRESSION: See Result. Frozen Yogurt Maker: CHRISTOFER Transcribe Date/Time: Jan 19 2024 11:03A Dictated by : CONSTANTIN GREENE MD This examination was interpreted and the report reviewed and electronically signed by: CONSTANTIN GREENE MD on Jan 19 2024 11:04AM [facility] DIVISION OF RADIOLOGY * * *Final Report* * * DATE OF EXAM: Jan 19 2024 8:50AM [id number] - XR CHEST 2V FRONTAL/LAT / PROCEDURE REASON: multiple diagnoses * * * * Physician Interpretation * * * * EXAMINATION: CHEST RADIOGRAPH (2 VIEW FRONTAL & LATERAL) Clinical History: Disorder of artery or arteriole (HCC) Pre-operative cardiovascular examination Atrial fibrillation, unspecified type (HCC) Mitral valve disorder M: XC2_6 Comparison: prior chest radiograph dated 03/07/2016 RESULT: Lines, tubes, and devices: Left chest pacemaker with leads over right atrium and right ventricle. Lungs and pleura: Scattered linear opacities probably atelectasis. No focal consolidations or effusions. No pneumothorax. Cardiomediastinal silhouette: Cardiac silhouette within normal limits. Other: Mild degenerative changes of the thoracic spine. DIVISION OF RADIOLOGY Provider, [facility] - 01/19/2024 * * *Final Report* * * DATE OF EXAM: Jan 19 2024 8:50AM [id number] - XR CHEST 2V FRONTAL/LAT / PROCEDURE REASON: multiple diagnoses * * * * Physician Interpretation * * * * EXAMINATION: CHEST RADIOGRAPH (2 VIEW FRONTAL & LATERAL) Clinical History: Disorder of artery or arteriole (HCC) Pre-operative cardiovascular examination Atrial fibrillation, unspecified type (HCC) Mitral valve disorder M: XC2_6 Comparison: prior chest radiograph dated 03/07/2016 RESULT: Lines, tubes, and devices: Left chest pacemaker with leads over right atrium and right ventricle. Lungs and pleura: Scattered linear opacities probably atelectasis. No focal consolidations or effusions. No pneumothorax. Cardiomediastinal silhouette: Cardiac silhouette within normal limits. Other: Mild degenerative changes of the thoracic spine. IMPRESSION IMPRESSION: See Result. Frozen Yogurt Maker: PSCB Transcribe Date/Time: Jan 19 2024 11:03A Dictated by : CONSTANTIN GREENE MD This examination was interpreted and the report reviewed and electronically signed by: CONSTANTIN GREENE MD on Jan 19 2024 11:04AM EST [facility] Radiology Study observation (narrative) [facility] XR Chest PA and LateralOrder ed By: [facility] Provider on 01-19-2024 [facility] aPTT PPPon 01-19-2024 aPTT Coag (PPP) [Time] 30.8 s Normal 23.0-32.4 [facility] Comment on above: Order Comment: Speci men Type: BLOOD SPECIMENOrdering Facility: [facility] Address: [address] [place] [address] Performed By: #### 3 4528-0, 63099-4 ####[facility] [id number] [address] [place] CNPNon 12-06-2023 CNPN Normal [facility] XR CHEST PA+LAT 2 VIEWSon XR CHEST PA+LAT 2 VIEWS EXAMINATION: XR CHEST PA+LAT 2 VIEWS 07/10/2023 04:07 PM CLINICAL HISTORY: Dyspnea ASSOCIATED DIAGNOSIS: Dyspnea, unspecified type ORDERING PROVIDER: [employer] NOTE: COMPARISON: None FINDINGS: Cardiac device: Left chest implanted dual-chamber permanent cardiac pacemaker with its leads terminating overlying the regions of the right atrial appendage and right ventricle. Cardiomediastinal silhouette: Upper limits normal heart size. Trachea: Midline. Lungs and pleura: No pulmonary consolidation, pleural effusion or pneumothorax. Osseous structures: Unremarkable. IMPRESSION: 1. No acute cardiopulmonary findings. 2. Dual-chamber permanent cardiac pacemaker. MACRO: None Normal [facility] ED NOTEon 07-07-2022 ED NOTE HNO ID: [id number] Author: Lisset Vincent RN Service: ? Author Type: Registered Nurse Type: ED Notes Filed: 10/28/2021 3:19 PM Note Text: US notified pt is ready. [facility] ED NOTE HNO ID: [id number] Author: Lisset Vincent RN Service: ? Author Type: Registered Nurse Type: ED Notes Filed: 10/28/2021 12:54 PM Note Text: Xray notified pt is ready. [facility] ED PROV NOTEon 10-28-2021 ED PROV NOTE HNO ID: [id number] Author: Reynaldo Huynh DO Service: Emergency Medicine Author Type: Physician Type: ED Provider Notes Filed: 10/28/2021 4:29 PM Note Text: ED Provider Note Patient Name: Tre Melo : 1955 SERVICE DATE: 10/28/21 History Patient presents with: Arm Pain: Pt in with bruising to left forearm. Pt states he fell 1 week ago flat onto left arm. Pain in forearm and elbow. Pt on xarelto. Denies hitting head in fall. Pt also has injury to left plasencia from a tree branch hitting him several weeks ago. Able to ambulate. 66-year-old male presents with swelling and pain to his left leg and his left forearm. He states that about 10 days ago he was cutting a tree and tree hit his left leg. He did fall to the ground. No head injury. States that later that day he went to [employer] away dog and due to the pain is like he did fall and landed with a outstretched left forearm. States that he since has developed ecchymosis and swelling in his left upper extremity. Ecchymosis was more proximal to spread more distal. He also has had some swelling to his left leg as well. No chest pain or dyspnea. He is on Eliquis. PAST MEDICAL HISTORY Diagnosis Date - ANXIETY STATE NEC - PMH - PAST MEDICAL HISTORY OF Scar tissue around nerve ending,causing electrical problem PAST SURGICAL HISTORY Procedure Laterality Date - PAST SURGICAL HISTORY OF Arthroscopic left knee No family history on file. Social History Tobacco Use - Smoking status: Never Smoker - Smokeless tobacco: Not on file Substance and Sexual Activity - Alcohol use: Yes Comment: rarely - Drug use: Not on file - Sexual activity: Not on file ALLERGIES No Known Allergies Review of Systems Musculoskeletal: Left upper extremity bruising, ecchymosis and swelling. Right lower extremity swelling. Skin: Bruising and ecchymosis to left upper and lower extremity. Physical Exam Vitals [10/28/21 1246] BP Pulse Temp Temp src Resp SpO2 Weight Height 136/96 60 36.4 ?C (97.5 ?F) Oral 16 98 % 136.1 kg (300 lb) 1.829 m (6') Physical Exam Vitals and nursing note reviewed. Constitutional: General: He is not in acute distress. Appearance: Normal appearance. He is not ill-appearing. HENT: Head: Normocephalic and atraumatic. Cardiovascular: Rate and Rhythm: Normal rate and regular rhythm. Pulmonary: Effort: Pulmonary effort is normal. No respiratory distress. Musculoskeletal: General: Swelling and tenderness present. Comments: Patient has swelling throughout left upper extremity from the elbow distally. Some ecchymosis on the volar aspect. Motor sensation intact. Distal pulses intact. Patient has swelling through the left calf. Prominence over the tibial tuberosity. No bruising or ecchymosis. Distal pulses intact. Neurological: General: No focal deficit present. Mental Status: He is alert. Mental status is at baseline. Diagnostic Testing ED Labs Ordered and Reviewed - No data to display Procedures ED Course / Clinical Impression Clinical Impressions as of 10/28/21 1628 Traumatic ecchymosis of left upper arm, initial encounter Leg swelling MDM / Disposition / Plan Patient was evaluated for swelling ecchymosis to his left upper extremity and swelling to his left lower extremity. He is anticoagulated. Imaging was negative. Overall low suspicion for DVT. I suspect his swelling of his left upper extremity is secondary to the trauma he has had and some dependent edema given that the bruising has progressed more distally. However, he does have significant swelling to his left calf when he had injury to his left anterior plasencia. Ultrasound will be obtained. Ultrasound imaging was unremarkable. Patient was made aware of the results. At this time I feel patient safe to be discharged home SIGNATURE: DO Reynaldo Ge DO 10/28/21 1629 Normal [facility] ED Triage Noteon 10-28-2021 ED Triage Note HNO ID: [id number] Author: Cecy Momin PA-C Service: Emergency Medicine Author Type: Physician Diesel Engine Fitter Type: ED Triage Notes Filed: 10/28/2021 12:54 PM Note Text: ED INTAKE NOTE Patient Name: Tre Melo Service Date: 10/28/21 Provider in triage BRIEF HPI: Patient is a 66-year-old male coming in today with concerns for left elbow and forearm pain. He fell on the arm 1 week ago. Reporting increased bruising, pain and swelling. He does take Xarelto. He denies head injury from the fall. No neck or back pain. He denies numbness or tingling. Has good range of motion in the elbow. Also notes left leg injury from tree last week as well. Ambulatory BRIEF EXAM: Constitutional: Well-developed, well-nourished, NAD. HEENT: Normocephalic, atraumatic. Respiratory: CTA bilaterally, no respiratory distress. Cardiac: RRR, heart sounds normal. Abdomen: Soft, NABS x4. Nontender, no guarding or rebound tenderness. Musculoskeltal: MCGUIRE x4. Patient ambulating in triage without difficulty. TTP with edema, ecchymosis to left forearm and elbow. No wrist or shoulder tenderness. Radial pulse 2+. TTP with edema and ecchymosis proximal tibia. PT pulse intact. Neuro: AANDOx3. Skin: Warm and dry. INTAKE WORKUP: Imaging: XR: Left elbow/forearm/tibia/fi bula SIGNATURE: Cecy Momin PA-C Normal [facility] US DVT LOWER LTon 10-28-2021 US DVT LOWER LT * * *Final Report* * * DATE OF EXAM: Oct 28 2021 4:12PM [facility] 1006 - US DVT LOWER LT / PROCEDURE REASON: Leg deep vein thrombosis (DVT) suspected * * * * Physician Interpretation * * * * EXAMINATION: LEFT LOWER EXTREMITY DEEP VENOUS ULTRASOUND WITH DOPPLER IMAGING CLINICAL HISTORY: Lower extremity swelling TECHNIQUE: Grayscale with compression maneuvers, color Doppler and spectral Doppler imaging of the left proximal deep veins was performed. Grayscale with compression maneuvers of the peroneal and posterior tibial veins was performed. The left great and small saphenous veins were evaluated at their insertion to the deep system. The contralateral common femoral vein was imaged for comparison. Images were obtained and stored in a permanent archive. MQ: USLEL_1 COMPARISON: None RESULT: LEFT LOWER EXTREMITY PROXIMAL DEEP VEINS Distal External Iliac, Common Femoral and proximal Profunda Veins: Compression: Normal Doppler: Normal, spontaneous respirophasic flow. Normal response to augmentation. Femoral vein: Compression: Normal Doppler: Normal, spontaneous flow. Normal response to augmentation. Popliteal vein: Compression: Normal Doppler: Normal, spontaneous flow. Normal response to augmentation. CALF DEEP VEINS Peroneal veins: Normal compression. Posterior tibial veins: Normal compression. Gastrocnemius and Soleal veins: Not imaged. SUPERFICIAL VEINS Great saphenous: Patent and compressible at insertion into common femoral vein; not otherwise assessed. Small Saphenous: Patent and compressible in the proximal calf, not otherwise assessed. RIGHT LOWER EXTREMITY (FOR COMPARISON) Common Femoral Vein: Compression: Normal Doppler: Normal, spontaneous respirophasic flow. Normal response to augmentation. IMPRESSION: Negative study for proximal DVT in the left lower extremity. Negative study for calf DVT in the left lower extremity. Negative study for superficial thrombophlebitis in the imaged segments of the left lower extremity. Frozen Yogurt Maker: PSCB Transcribe Date/Time: Oct 28 2021 4:15P Dictated by : JENNIFER LOGAN MD This examination was interpreted and the report reviewed and electronically signed by: JENNIFER LOGAN MD on Oct 28 2021 4:16PM EST [id number] Normal [facility] US DVT UPPER LTon 10-28-2021 US DVT UPPER LT * * *Final Report* * * DATE OF EXAM: Oct 28 2021 4:13PM [facility] 1003 - US DVT UPPER LT / PROCEDURE REASON: Arm deep vein thrombosis (DVT) suspected * * * * Physician Interpretation * * * * EXAMINATION: LEFT UPPER EXTREMITY DEEP VENOUS ULTRASOUND WITH DOPPLER IMAGING CLINICAL HISTORY: Upper extremity swelling TECHNIQUE: Grayscale with compression maneuvers where accessible, color and spectral Doppler of the left internal jugular, subclavian, and axillary veins was performed. Grayscale with compression maneuvers of the left brachial, basilic and cephalic veins was also performed. The contralateral internal jugular and distal subclavian veins were imaged for comparison. Images were obtained and stored in a permanent archive. MQ: USUEL_1 COMPARISON: None RESULT: LEFT UPPER EXTREMITY DEEP VEINS Internal Jugular vein: Normal compression, normal spontaneous flow. Subclavian vein: Normal, spontaneous flow. Axillary vein: Normal compression, normal spontaneous flow. Brachial vein: Normal compression SUPERFICIAL VEINS Basilic vein: Normal compression. Cephalic vein: Normal compression. RIGHT UPPER EXTREMITY (FOR COMPARISON) DEEP VEINS Internal Jugular and Distal Subclavian veins: Normal compression, normal spontaneous flow. IMPRESSION: Negative study for DVT in the left upper extremity. Negative study for superficial thrombophlebitis in the imaged segments of the left upper extremity. Frozen Yogurt Maker: PSCB Transcribe Date/Time: Oct 28 2021 4:16P Dictated by : JENNIFER LOGAN MD This examination was interpreted and the report reviewed and electronically signed by: JENNIFER LOGAN MD on Oct 28 2021 4:17PM EST [id number] Normal [facility] XR ELBOW 3V AP/LAT/OTHER LTo n 10-28-2021 XR ELBOW 3V AP/LAT/OTHER LT * * *Final Report* * * DATE OF EXAM: Oct 28 2021 1:25PM [id number] - XR ELBOW 3V AP/LAT/OTHER LT / PROCEDURE REASON: Elbow trauma, no prior imaging * * * * Physician Interpretation * * * * EXAMINATION: XR ELBOW 3V AP/LAT/OTHER LT, XR TIBIA FIBULA 2V AP/LAT LT, XR FOREARM 2V AP/LAT LT HISTORY: PT FELL RECENTLY, LEFT ARM PAIN (accession [id number]), left leg injury from a tree branch a few weeks ago per epic (accession [id number]), PT FELL RECENTLY, LEFT ARM PAIN (accession [id number]) Elbow trauma, no prior imaging. TECHNIQUE: XR ELBOW 3V AP/LAT/OTHER LT, XR TIBIA FIBULA 2V AP/LAT LT, XR FOREARM 2V AP/LAT LT Laterality: LEFT Number of different views (projections): 3 (accession [id number]), 2 (accession [id number]), 2 (accession [id number]) M: XB_1 COMPARISON: RESULT: Left elbow: No fracture, subluxation or evidence of joint effusion. There is some soft tissue swelling along the posterior aspect of the forearm. 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 Left forearm: No evidence of fracture. Left tibia-fibula: No fracture or suspicious osseous lesion is seen. No other significant abnormality. IMPRESSION: No acute osseous injury is seen of the left elbow, left forearm or left tibia/fibula. Frozen Yogurt Maker: PSCTalita Transcribe Date/Time: Oct 28 2021 1:46P Dictated by : DEBORAH ECKERT MD This examination was interpreted and the report reviewed and electronically signed by: DEBORAH ECKERT MD on Oct 28 2021 1:49PM EST [id number] Normal [facility] XR FOREARM 2V AP/LAT LTon XR FOREARM 2V AP/LAT LT * * *Final Report* * * DATE OF EXAM: Oct 28 2021 1:25PM [id number] - XR FOREARM 2V AP/LAT LT / PROCEDURE REASON: Fracture, forearm * * * * Physician Interpretation * * * * EXAMINATION: XR ELBOW 3V AP/LAT/OTHER LT, XR TIBIA FIBULA 2V AP/LAT LT, XR FOREARM 2V AP/LAT LT HISTORY: PT FELL RECENTLY, LEFT ARM PAIN (accession [id number]), left leg injury from a tree branch a few weeks ago per epic (accession [id number]), PT FELL RECENTLY, LEFT ARM PAIN (accession [id number]) Elbow trauma, no prior imaging. TECHNIQUE: XR ELBOW 3V AP/LAT/OTHER LT, XR TIBIA FIBULA 2V AP/LAT LT, XR FOREARM 2V AP/LAT LT Laterality: LEFT Number of different views (projections): 3 (accession [id number]), 2 (accession [id number]), 2 (accession [id number]) M: XB_1 COMPARISON: RESULT: Left elbow: No fracture, subluxation or evidence of joint effusion. There is some soft tissue swelling along the posterior aspect of the forearm. 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 Left forearm: No evidence of fracture. Left tibia-fibula: No fracture or suspicious osseous lesion is seen. No other significant abnormality. IMPRESSION: No acute osseous injury is seen of the left elbow, left forearm or left tibia/fibula. Frozen Yogurt Maker: [facility] Transcribe Date/Time: Oct 28 2021 1:46P Dictated by : DEBORAH ECKERT MD This examination was interpreted and the report reviewed and electronically signed by: DEBORAH ECKERT MD on Oct 28 2021 1:49PM EST [id number] Normal [facility] XR TIBIA FIBULA 2V AP/LAT LT on 10-28-2021 XR TIBIA FIBULA 2V AP/LAT LT * * *Final Report* * * DATE OF EXAM: Oct 28 2021 1:25PM [id number] - XR TIBIA FIBULA 2V AP/LAT LT / PROCEDURE REASON: Fracture, tib/fib * * * * Physician Interpretation * * * * EXAMINATION: XR ELBOW 3V AP/LAT/OTHER LT, XR TIBIA FIBULA 2V AP/LAT LT, XR FOREARM 2V AP/LAT LT HISTORY: PT FELL RECENTLY, LEFT ARM PAIN (accession [id number]), left leg injury from a tree branch a few weeks ago per epic (accession [id number]), PT FELL RECENTLY, LEFT ARM PAIN (accession [id number]) Elbow trauma, no prior imaging. TECHNIQUE: XR ELBOW 3V AP/LAT/OTHER LT, XR TIBIA FIBULA 2V AP/LAT LT, XR FOREARM 2V AP/LAT LT Laterality: LEFT Number of different views (projections): 3 (accession [id number]), 2 (accession [id number]), 2 (accession [id number]) M: XB_1 COMPARISON: RESULT: Left elbow: No fracture, subluxation or evidence of joint effusion. There is some soft tissue swelling along the posterior aspect of the forearm. 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 Left forearm: No evidence of fracture. Left tibia-fibula: No fracture or suspicious osseous lesion is seen. No other significant abnormality. IMPRESSION: No acute osseous injury is seen of the left elbow, left forearm or left tibia/fibula. Frozen Yogurt Maker: PSCB Transcribe Date/Time: Oct 28 2021 1:46P Dictated by : DEBORAH ECKRET MD This examination was interpreted and the report reviewed and electronically signed by: DEBORAH ECKERT MD on Oct 28 2021 1:49PM EST [id number] Normal [facility] COVID-19/INFLUENZA A,B CARTER Fontaine 03-07-2021 SARS-CoV-2 (COVID-19) Ab IA Ql SARS-COV-2 (ROXIE): Not Detected INFLUENZA A (ROXIE): Not Detected INFLUENZA B (ROXIE): Not Detected Normal Not Detected [facility] Comment on above: Order Comment: This test was performed under the FDA's Emergency Use Authorization (EUA). Testing was performed using the Fannie Jose SARS-CoV-2 RT-PCR AND Influenza A/B Nucleic Acid Test on the Jose Roxie System. This test has not been approved for use in asymptomatic patients and its performance in this patient population has not been evaluated. Negative results do not rule out the presence of SARS-CoV-2, influenza A, and/or influenza B. Fact sheets for the EUA can be found at the following links: For Healthcare Providers: https://www.fda.gov/media/458976/download For Patients: https://www.fda.gov/media/190515/download Performed By: #### L [id number] #### [facility] [address] [place], [place] [address] Chiki Arreguin M.D. [id number] CT HEAD OR BRAIN WITHOUT CON TRASTon 03-07-2021 CT HEAD OR BRAIN WITHOUT CONTRAST EXAMINATION: CT HEAD OR BRAIN WITHOUT CONTRAST HISTORY: ORDERING SYSTEM PROVIDED HISTORY: Dizziness, persistent/recurrent, cardiac or vascular cause suspected, TECHNOLOGIST PROVIDED HISTORY: Illness/Other Reason for exam: dizziness Encounter Type: Initial Additional signs and symptoms: n/a ORDERING SYSTEM PROVIDED DIAGNOSIS CODES: COMPARISON: No relevant prior study available at time of interpretation. TECHNIQUE: Axial CT images of the brain from skull base to vertex, including portions of the face and sinuses, were obtained without contrast. Multiplanar 2D reformatted images were generated and reviewed. Dose reduction techniques were achieved by using automated exposure control and/or adjustment of mA and/or kV according to patient size and/or use of iterative reconstruction technique. FINDINGS: BRAIN: No acute intracranial hemorrhage. No extraaxial collection. No midline shift. No mass or mass effect. Pearce-white matter differentiation preserved. CSF: Ventricles and sulci appropriate for age. Patent basal cisterns. ORBITS: The visualized orbital structures are unremarkable. PARANASAL SINUSES/MASTOID AIR CELLS: A few trace maxillary mucous retention cysts versus polyps. Paranasal sinuses otherwise clear. The mastoid air cells are clear. SOFT TISSUES: Unremarkable. BONES: No acute osseous abnormality. IMPRESSION: No acute intracranial abnormality. Workstation ID: [id number] Dictated by: SHALINI KHAN on [place] Mar 07, 2021 3:32:39 PM EST Transcribed by: SHALINI KHAN on [place] Mar 07, 2021 3:32:39 PM EST Finalized by: SHALINI KHAN on [place] Mar 07, 2021 3:32:39 PM EST Normal [facility] Comment on above: Order Comment: Injur y/Trauma or Illness?:Illness/Other How long have you had these symptoms (acute/chronic)?:Acute Reason for exam?:dizziness Type of Exam?:Initial Additional signs and symptoms?:n/a MAGNESIUMon 12-09-2020 Magnesium [Mass/Vol] 2.2 mg/dL Normal 1.6-2.6 [facility] Comment on above: Performed By: #### M GO #### [facility] (DEFAULT) [address] [address] T4 FREEon 12-09-2020 Free T4 [Mass/Vol] 1.37 ng/dL Normal 0.89-1.76 [facility] Comment on above: Performed By: #### F T4, TSH #### [facility] (DEFAULT) [address] [address] TSHon 12-09-2020 TSH 0.649 uIU/mL Normal 0.550-4.780 [facility] Comment on above: Performed By: #### F T4, TSH #### [facility] (DEFAULT) [address] [address] ALK PHOSPHATASEon 06-02-2020 ALP [Catalytic activity/Vol] 47 U/L Normal 32-126 [facility] Comment on above: Performed By: #### A LP #### [facility] (DEFAULT) [address] [address] CHEM 6 (LYTES, BUN CREA)on 0 06-02-2020 Anion gap [Moles/Vol] 12 mmol/L Normal 7-17 [facility] Comment on above: Performed By: #### C HM6, ALTO, HFP, MGO #### [facility] (DEFAULT) [address] [address] Chloride [Moles/Vol] 107 mmol/L Normal 98-108 [facility] Comment on above: Performed By: #### C HM6, ALTO, HFP, MGO #### [facility] (DEFAULT) [address] [place] [address] CO2 [Moles/Vol] 27 mmol/L Normal 22-30 [facility] Comment on above: Performed By: #### C HM6, ALTO, HFP, MGO #### [facility] (DEFAULT) [address] [place] [address] Creatinine [Mass/Vol] 1.10 mg/dL Normal 0.70-1.30 [facility] Comment on above: Performed By: #### C HM6, ALTO, HFP, MGO #### [facility] (DEFAULT) [address] [place] [address] EST GFR, >=60 Normal >=60 [facility] Comment on above: Performed By: #### C HM6, ALTO, HFP, MGO #### [facility] (DEFAULT) [address] [place] [address] EST GFR,Non >=60 Normal >=60 [facility] Comment on above: Performed By: #### C HM6, ALTO, HFP, MGO #### [facility] (DEFAULT) [address] [place] [address] Potassium [Moles/Vol] 4.4 mmol/L Normal 3.5-5.0 [facility] Comment on above: Performed By: #### C HM6, ALTO, HFP, MGO #### [facility] (DEFAULT) [address] [place] [address] Sodium [Moles/Vol] 142 mmol/L Normal 133-143 [facility] Comment on above: Performed By: #### C HM6, ALTO, HFP, MGO #### [facility] (DEFAULT) [address] [place] [address] Urea nitrogen [Mass/Vol] 21 mg/dL Normal 7-22 [facility] Comment on above: Performed By: #### C HM6, ALTO, HFP, MGO #### [facility] (DEFAULT) [address] [place] [address] Urea nitrogen/Creatinine [Mass ratio] 19 mg/mg Normal [facility] Comment on above: Performed By: #### C HM6, ALTO, HFP, MGO #### [facility] (DEFAULT) [address] [place] [address] HEPATIC FUNCTION PANELon Albumin [Mass/Vol] 4.6 g/dL Normal 3.5-5.0 [facility] Comment on above: Performed By: #### C HM6, ALTO, HFP, MGO #### [facility] (DEFAULT) [address] [place] [address] ALP [Catalytic activity/Vol] 46 U/L Normal 32-126 [facility] Comment on above: Performed By: #### C HM6, ALTO, HFP, MGO #### [facility] (DEFAULT) [address] [place] [address] ALT [Catalytic activity/Vol] 30 U/L Normal 10-52 [facility] Comment on above: Performed By: #### C HM6, ALTO, HFP, MGO #### [facility] (DEFAULT) [address] [place] [address] AST [Catalytic activity/Vol] 25 U/L Normal 14-40 [facility] Comment on above: Performed By: #### C HM6, ALTO, HFP, MGO #### [facility] (DEFAULT) [address] [place] [address] Bilirubin [Mass/Vol] 0.5 mg/dL Normal <1.5 [facility] Comment on above: Performed By: #### C HM6, ALTO, HFP, MGO #### [facility] (DEFAULT) [address] [place] [address] Bilirubin.indirect [Mass/Vol] 0.1 mg/dL Normal <0.3 [facility] Comment on above: Performed By: #### C HM6, ALTO, HFP, MGO #### [facility] (DEFAULT) [address] [place] [address] Protein [Mass/Vol] 6.8 g/dL Normal 6.4-8.3 [facility] Comment on above: Performed By: #### C HM6, ALTO, HFP, MGO #### [facility] (DEFAULT) [address] [place] [address] MAGNESIUMon 06-02-2020 Magnesium [Mass/Vol] 2.3 mg/dL Normal 1.6-2.6 [facility] Comment on above: Performed By: #### C HM6, ALTO, HFP, MGO #### [facility] (DEFAULT) [address] [place] [address] T4 FREEon 06-02-2020 Free T4 [Mass/Vol] 1.24 ng/dL Normal 0.89-1.76 [facility] Comment on above: Performed By: #### F T4 #### [facility] (DEFAULT) [address] [place] [address] TSHon 06-02-2020 TSH 0.538 uIU/mL Low 0.550-4.780 [facility] Comment on above: Performed By: #### T SH #### [facility] (DEFAULT) [address] [place] [address] XR CHEST PA AND LATERALon XR CHEST PA AND LATERAL EXAM: XR CHEST PA AND LATERAL, 06/02/2020 12:02 PM CLINICAL INDICATIONS: drug load RELEVANT CLINICAL HISTORY: I48.0:PAF (paroxysmal atrial fibrillation) Amiodarone testing; COMPARISON: Compared to the prior study dated December 01, 2017 FINDINGS: The left subclavian dual-lead pacemaker remains. There is no pneumothorax. The heart size is upper normal, but unchanged. There is no pulmonary edema. The lungs appear clear. There are mild degenerative changes in the thoracic spine. IMPRESSION: The lungs appear clear, there is no pulmonary edema and the study appears unchanged from December 01, 2017. Normal [facility] ECHOCARDIOGRAMon 05-26-2020 Echocardiography ? Technically difficult study. ? Left ventricle is mildly enlarged. Estimated LVEF 60-65%, consistent with normal systolic function. Moderate concentric LVH. ? Right ventricular chamber size and systolic function are normal. Device wire present. ? Left atrium is severely enlarged. ? No significant valvular disease. ? Right ventricular systolic pressure is estimated at 38 mmHg ? There is no pericardial effusion present. Facility [facility] Patient Information Patient Name Tre Melo Sex Male Indication for Exam Priority: Routine Dx: Shortness of breath on exertion [R06.02 (ICD-10-CM)] Comments: LA dimension, EF Interpretation Summary ? Technically difficult study. ? Left ventricle is mildly enlarged. Estimated LVEF 60-65%, consistent with normal systolic function. Moderate concentric LVH. ? Right ventricular chamber size and systolic function are normal. Device wire present. ? Left atrium is severely enlarged. ? No significant valvular disease. ? Right ventricular systolic pressure is estimated at 38 mmHg ? There is no pericardial effusion present. Findings Left Ventricle Chamber size is mildly enlarged. Increased wall thickness. Moderate concentric hypertrophy. Normal global wall motion. Regional wall motion is normal. Ejection fraction is normal (60 - 65%). Diastolic function could not be determined. Right Ventricle Chamber size is normal. Systolic function is normal. Device wire is present. Left Atrium Chamber size is severely enlarged. Right Atrium Chamber size is enlarged. A device wire is present. Septum The atrial septum is normal. Mitral Valve Normal appearing leaflets. Leaflet mobility is normal. Annular calcification. Trace regurgitation. No valve stenosis. Aortic Valve Trileaflet valve. Non-specific thickening of all cusps. Leaflet mobility is normal. No regurgitation. No stenosis. Tricuspid Valve Normal leaflets. Leaflet mobility is normal. Trace regurgitation. No stenosis. Estimated right ventricular systolic pressure is 38 mmHg. Pulmonic Valve Pulmonic valve not well visualized. No regurgitation. No stenosis. Aorta No dilation to extent seen. Pericardium Appears normal. No pericardial effusion. IVC/SVC The inferior vena cava structure is abnormal. The diameter is >21 mm and decreases >50% during inspiration. Pulmonary Artery Pulmonary artery not well visualized. Reading Providers Reading Role Read Date Vineet Brown MD, PhD Fellow - Reading 05/26/2020 Eleuterio Santillan MD Echo Pound 05/26/2020 Wall Scoring Score Index: 1.00 The left ventricular wall motion is normal. Left Heart Measurements LV - Systole LVIDD 6.06 cm IVS 1.36 cm LVIDS 4.28 cm PW 1.37 cm LV RWT 0.45 LV Mass Index 143.6 g/m2 LV EDV BP 192 mL LV ESV BP 74 mL BP EF 61 % LV stroke volume BP (ml) 118 mL LV stroke volume index BP 44.53 mL/m2 LV - Diastole MV pk E traci 1.1 m/s LV - HCM AV LVOT peak gradient 5 mmHg Left Atrium LA ESV SP 4CH (MOD) 177 mL LA ESV SP 2CH (MOD) 127 mL LA ESV BP (MOD) index 58 mL/m2 Right Heart Measurements RV - 2D RV basal diam 3.6 cm RV mid diam 3.1 cm RV long diam 8 cm RV Area diastolic 23.7 cm2 RV Area systolic 15.4 cm2 RV Fractional area change 35 % RV - Doppler TAPSE 1.92 RV S' 17 cm/s Right Atrium RA vol index 4CH (MOD) 22.64 mL/m2 EST RAP 8 mmHg RA area 4CH (MOD) 22.4 cm2 Great Vessels Aortic Root - End Diastolic Sinus 3.29 cm STJ 3.38 cm Ascending aorta 3.77 cm Inferior Vena Cava IVC ostium 2.5 cm Doppler Measurements - Aortic Valve Stenosis LVOT diameter 2 cm LVOT area 3.14 cm2 LVOT peak traci 1.08 m/s Ao peak traci 1.32 m/s AV peak gradient 7 mmHG DI (Vmax) 0.82 SAM (continuity Vmax) 2.57 cm2 SAM index (continuity Vmax) 0.97 m/s Doppler Measurements - Mitral Valve Stenosis MV pk E traci 1.1 m/s PISA-MS MV pk E traci 1.1 m/s Doppler Measurements - Tricuspid Valve Stenosis IVC ostium 2.5 cm Regurgitation TR pk traci 2.74 m/s TR pk grad 30 mmHg EST RAP 8 mmHg EST RVSP 38 mmHg Doppler Measurements - Pulmonic Valve Stenosis PV PK TRACI 1.26 m/s PV peak gradient 6 mmHg RVOT peak traci 0.73 m/s RVOT peak gradient 2 mmHg Performing Staff Samanta Amin RDCS Study Details Study(s) performed: complete. Contrast indication: evaluation of left ventricle contiguous segments. Contrast was administered. Study limitations include patient body habitus. Imaging system used: [employer]. Indications for study: dyspnea. Exam Details Performed Procedure Technologist Supporting Staff Performing Physician ECHOCARDIOGRAM W/O 3D W/CONTRAST Samanta Amin RDCS Appointment Date/Status Modality Department 05/26/2020 Arrived ECHO TESTING, [facility] ECHOCARDIOGRAPHY ROSS (more content not included)... Abnormal [facility] NUC MYOCARD PERF STRESS MIBI PHARMon 05-26-2020 NUC MYOCARD PERF STRESS MIBI PHARM Overall: This pharmacological stress nuclear perfusion scan is negative for ischemia. There is a small apical and septal apical fixed defect that likely represents apical thinning vs artifact related to paced rhythm though an old infarct cannot be ruled out. Nuclear portion of the exam: ? No evidence of ischemia ? There is medium sized, moderate severity, fixed defect in the inferior wall that resolves with attenuation correction and likely represents diaphragmatic artifact. ? There is an apparent small sized, mild intensity, fixed defect in the apical and septal apical wall that improves with stress but does not resolve with attenuation correction. Given normal wall motion, it likely represents apical thinning vs artifact created by the paced rhythm though a small prior infarct cannot be completely ruled out. ? Normal left ventricular systolic function (LVEF 64%). ? TID of 1.05 and LHR of 0.31. ECG portion of the exam: ? Baseline ECG: AV paced rhythm ? He denied chest pain. ? Indeterminate EKG due to underlying AV paced rhythm. ? No significant arrhythmias. CT portion of the scan: ? CT images were obtained for attenuation correction purposes only. Diagnostic quality of the images is limited. ? No obvious coronary calcification (CAC) is seen, although the study is not optimized for CAC detection or quantification. ? Intravenous device wires are noted. Facility [facility] Patient Information Patient Name Tre Melo Sex Male Indication for Exam Priority: Routine Shortness of breath produced by exertion or stress Dx: Shortness of breath on exertion [R06.02 (ICD-10-CM)] Comments: Interpretation Summary Overall: This pharmacological stress nuclear perfusion scan is negative for ischemia. There is a small apical and septal apical fixed defect that likely represents apical thinning vs artifact related to paced rhythm though an old infarct cannot be ruled out. Nuclear portion of the exam: ? No evidence of ischemia ? There is medium sized, moderate severity, fixed defect in the inferior wall that resolves with attenuation correction and likely represents diaphragmatic artifact. ? There is an apparent small sized, mild intensity, fixed defect in the apical and septal apical wall that improves with stress but does not resolve with attenuation correction. Given normal wall motion, it likely represents apical thinning vs artifact created by the paced rhythm though a small prior infarct cannot be completely ruled out. ? Normal left ventricular systolic function (LVEF 64%). ? TID of 1.05 and LHR of 0.31. ECG portion of the exam: ? Baseline ECG: AV paced rhythm ? He denied chest pain. ? Indeterminate EKG due to underlying AV paced rhythm. ? No significant arrhythmias. CT portion of the scan: ? CT images were obtained for attenuation correction purposes only. Diagnostic quality of the images is limited. ? No obvious coronary calcification (CAC) is seen, although the study is not optimized for CAC detection or quantification. ? Intravenous device wires are noted. Stress Findings ECG Baseline ECG shows an atrioventricular paced rhythm. QRS duration is widened (>120ms). No stress ECG changes for ischemia. Stress ECG is unchanged from baseline. There was no ST segment deviation noted during stress. Stress QRS duration is widened (>120ms). Recovery ECG returned to baseline. There were no arrhythmias during recovery. Recovery QRS duration is widened (>120ms). ECG results indeterminate due to a paced rhythm. Stress Findings A pharmacological stress test was performed using regadenoson without low-level exercise. The patient reported no symptoms prior to the stress test. The patient reported shortness of breath during the stress test. The patient reached the end of the protocol. Reading Providers Reading Role Read Date Jimenez Burrell MD ECG Pound, SPECT Pound, Fellow - Reading 05/26/2020 Min Bae MD Test Public Service Officer, ECG Pound, SPECT Pound 05/26/2020 Stress Measurements Baseline Vitals-Supine Baseline HR 60 bpm Baseline SBP 132 mmHg Baseline DBP 81 mmHg Peak Stress Vitals Peak HR 65 bpm Peak SBP 119 mmHg Peak DBP 67 mmHg Rate Pressure Product 7,735 Exercise Data APHRMAX 157 bpm % APHRMAX 41 % Nuclear Stress Findings Isotope Admin The isotope used for nuclear imaging was technetium sestamibi.No radiopharmaceutical dose was extravasated. Nuclear Study Quality Overall image quality is good. Perfusion Defect 1 There is a fixed, moderate left ventricular perfusion defect in the entire inferior segment(s) of moderate intensity. The defect is consistent with an artifact caused by diaphragmatic attenuation. The defect resolves with CT attenuation. Perfusion Defect 2 There is a fixed, small left ventricular perfusion defect in the distal to apical septal and apex segment(s) of mild intensity. The (more content not included)... Normal [facility] Office Visiton 09-07-2016 Documentation of current medications (procedure) Done Invalid Interpretation Code [facility] Work Phone: Tobacco smoking status NHIS Former smoker [facility] Work Phone: Tobacco use CPHS Former smoker Invalid Interpretation Code [facility] Work Phone: Lab Report: BMPon 11-30-2012 Calcium 9.1 mg/dL Normal 8.5-10.1 [facility] Work Phone: Chloride 105 mmol/L Normal 98-107 [facility] Work Phone: Creatinine 0.8 mg/dL Normal 0.8-1.3 [facility] Work Phone: Glucose 80 mg/dL Normal 70-110 [facility] Work Phone: Glucose [Mass/Vol] 80 mg/dL Normal 70-110 [facility] Work Phone: Potassium 4.2 mmol/L Normal 3.5-5.1 [facility] Work Phone: Sodium 141 mmol/L Normal 136-145 [facility] Work Phone: Urea nitrogen 21 mg/dL High 7-18 [facility] Work Phone: Lab Report: BTNPon 3 BTNP 26.9 pg/mL Normal <100 [facility] Work Phone: GE use only - for Link[employer]ic import when terms are not otherwise specified 26.9 pg/mL Normal <100 [facility] Work Phone: Lab Report: CBCon 11-30-2012 Erythrocytes (RBC) 4.97 10*6/uL Normal 4.6-6.2 [facility] Work Phone: Hematocrit (Bld) [Volume fraction] 42.8 % Normal 40-54 [facility] Work Phone: Hematocrit (HCT) 42.8 % Normal 40-54 [facility] Work Phone: Hemoglobin (HGB) 14.6 g/dL Normal 13.0-16.5 [facility] Work Phone: Platelets 187 10*3/mm3 Normal 150-450 [facility] Work Phone: Platelets (Bld) [#/Vol] 187 10*3/mm3 Normal 150-450 [facility] Work Phone: RBC (Bld) [#/Vol] 4.97 10*6/uL Normal 4.6-6.2 [facility] Work Phone: WBC (Bld) [#/Vol] 6.8 10*3/uL Normal 4.4-11.0 [facility] Work Phone: WBC (Leukocytes) 6.8 10*3/uL Normal 4.4-11.0 [facility] [place] Work Phone: Lab Report: TSHon 11-30-2012 Thyroid stimulating hormone (TSH) 0.96 u[iU]/mL Normal 0.358-3.74 [facility] Work Phone: Office Visit: [facility] 12-01-19 13 Documentation of current medications (procedure) Done Invalid Interpretation Code [facility] Work Phone: Replaced Document: Chavo Olvera 11-30-2012 EKG QRS axis -4 deg [facility] Work Phone: electrocardiogram interpretation Sinus Rhythm WITHIN NORMAL LIMITS Invalid Interpretation Code [facility] Work Phone: Interpretation Sinus Rhythm WITHIN NORMAL LIMITS [facility] Work Phone: P [place] 41 deg [facility] Work Phone: P wave axis, electrocardiogram 41 deg Invalid Interpretation Code [facility] Work Phone: CA Interval 184 ms [facility] Work Phone: CA interval, electrocardiogram 184 ms Invalid Interpretation Code [facility] Work Phone: Pulse (Heart Rate) 398 ms Invalid Interpretation Code [facility] Work Phone: Pulse (Heart Rate) 78 /min Invalid Interpretation Code [facility] Work Phone: QRS axis, electrocardiogram -4 deg Invalid Interpretation Code [facility] Work Phone: QRS Duration 98 ms [facility] Work Phone: QRS duration, electrocardiogram 98 ms Invalid Interpretation Code [facility] Work Phone: QT Interval new path ms [facility] Work Phone: QT interval, electrocardiogram new path ms Invalid Interpretation Code [facility] Work Phone: T [place] 22 deg [facility] Work Phone: T wave axis, electrocardiogram 22 deg Invalid Interpretation Code [facility] Work Phone: Clinical 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 Anion gap 5 mmol/L Invalid Interpretation Code [facility] Work Phone: Anion gap [Moles/Vol] 5 mmol/L [facility] Work Phone: BUN/Creatinine Ratio 14.4 mg/mg Invalid Interpretation Code [facility] Work Phone: CO2 29.0 mmol/L Invalid Interpretation Code [facility] Work Phone: CO2 (BldV) [Partial pressure] 29.0 mmol/L [facility] Work Phone: MCH 30.8 pg Invalid Interpretation Code [facility] Work Phone: MCH (RBC) [Entitic mass] 30.8 pg [facility] Work Phone: MCV 86.8 fL Invalid Interpretation Code [facility] Work Phone: MCV (RBC) [Entitic vol] 86.8 fL [facility] Work Phone: Clinical 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 Tobacco use CPHS former smoker Invalid Interpretation Code [facility] Work Phone: Vital Signs Date Time Vital Sign Value Performing Clinician Facility 02-06-2024 08:54-0400 Body height 182.9 cm Andshantel Madsen APRN.WEB UI DESIGNER Work Phone: [facility] 02-06-2024 08:54-0400 Body mass index (BMI) [Ratio] 43.67 kg/m2 Andeglinden Madsen PELLET PRESS OPERATOR.WEB UI DESIGNER Work Phone: [facility] 02-06-2024 08:54-0400 Body temperature 99.1 [degF] Andshantel Villarreals PELLET PRESS OPERATOR.WEB UI DESIGNER Work Phone: [facility] 02-06-2024 08:54-0400 Body weight 146.06 kg Andeglinden Madsen PELLET PRESS OPERATOR.WEB UI DESIGNER Work Phone: [facility] 02-06-2024 08:54-0400 Diastolic blood pressure 56 mm[Hg] Andegoni Sandalakis PELLET PRESS OPERATOR.WEB UI DESIGNER Work Phone: [facility] 02-06-2024 08:54-0400 Heart rate 70 /min Andegoni Sandalakis PELLET PRESS OPERATOR.WEB UI DESIGNER Work Phone: [facility] 02-06-2024 08:54-0400 Respiratory rate 16 /min Andegoni Sandalakis PELLET PRESS OPERATOR.WEB UI DESIGNER Work Phone: [facility] 02-06-2024 08:54-0400 SaO2% (BldA) [Mass fraction] 95 % Andegoni Sandalakis PELLET PRESS OPERATOR.WEB UI DESIGNER Work Phone: [facility] 02-06-2024 08:54-0400 Systolic blood pressure 105 mm[Hg] Andegoni Sandalakis PELLET PRESS OPERATOR.WEB UI DESIGNER Work Phone: [facility] 01-27-2024 07:29-0400 SaO2% (BldA) [Mass fraction] 100 % [facility] Comment on above: Order Comment: Specimen Type: ARTERIAL B LOOD SPECIMENOrdering Facility: [facility] Address: [address] [place] [address] Performed By: #### A LLBG ####[facility] [id number] [address] OF [facility] 01-27-2024 03:32-0400 SaO2% (BldA) [Mass fraction] 99 % NA [facility] Comment on above: Order Comment: Specimen Type: ARTERIAL B LOOD SPECIMENOrdering Facility: [facility] Address: [address] [place] [address] Performed By: #### A LLBG ####[facility] [id number] [address] STATES OF [facility] 01-27-2024 01:34-0400 SaO2% (BldA) [Mass fraction] 100 % NA [facility] Comment on above: Order Comment: Specimen Type: ARTERIAL B LOOD SPECIMENOrdering Facility: [facility] Address: [address] [place], [place] [id number] Performed By: #### A LLBG ####[facility] [id number] [address] [address] [place] [facility] 01-26-2024 23:24-0400 SaO2% (BldA) [Mass fraction] 94 % NA [facility] Comment on above: Order Comment: Specimen Type: ARTERIAL B LOOD SPECIMENOrdering Facility: [facility] Address: [address] [place] [address] Performed By: #### A LLBG ####[facility] [id number] [place] [id number] [place] 01-26-2024 19:15-0400 SaO2% (BldA) [Mass fraction] 99 % NA L[facility] Comment on above: Order Comment: Specimen Type: ARTERIAL B LOOD SPECIMENOrdering Facility: [facility] Address: [address] [place], [place] [id number] Performed By: #### A LLBG ####[facility] [id number] [address] [address] [place] 01-26-2024 15:19-0400 SaO2% (BldA) [Mass fraction] 100 % NA [facility] Comment on above: Order Comment: Specimen Type: ARTERIAL B LOOD SPECIMENOrdering Facility: [facility] Address: [address] [place] [address] Performed By: #### A LLBG ####[facility] [id number] [address] [address] [place] 01-26-2024 11:20-0400 SaO2% (BldA) [Mass fraction] 99 % NA [facility] Comment on above: Order Comment: Specimen Type: ARTERIAL B LOOD SPECIMENOrdering Facility: [facility] Address: [address] [place] [address] Performed By: #### A LLBG ####[facility] [id number] [address] [address] [place] 01-26-2024 07:28-0400 SaO2% (BldA) [Mass fraction] 99 % NA L[facility] Comment on above: Order Comment: Specimen Type: ARTERIAL B LOOD SPECIMENOrdering Facility: [facility] Address: [address] [place] [address] Performed By: #### A LLBG ####[facility] [id number] [place] [id number] [place] 01-26-2024 03:31-0400 SaO2% (BldA) [Mass fraction] 100 % NA [facility] Comment on above: Order Comment: Specimen Type: ARTERIAL B LOOD SPECIMENOrdering Facility: [facility] Address: [address] [place] [address] Performed By: #### A LLBG ####[facility] [id number] [place] [id number] [place] 01-26-2024 00:24-0400 SaO2% (BldA) [Mass fraction] 100 % NA [facility] Comment on above: Order Comment: Specimen Type: ARTERIAL B LOOD SPECIMENOrdering Facility: [facility] Address: [address] [place], [place] [address] Performed By: #### A LLBG ####[facility] [id number] [place] [id number] [place] 01-25-2024 21:27-0400 SaO2% (BldA) [Mass fraction] 99 % NA [facility] Comment on above: Order Comment: Specimen Type: ARTERIAL B LOOD SPECIMENOrdering Facility: [facility] Address: [address] [place], [place] [id number] Performed By: #### A LLBG ####[facility] [id number] [place] [id number] [facility] 01-25-2024 19:23-0400 SaO2% (BldA) [Mass fraction] 99 % NA [facility] Comment on above: Order Comment: Specimen Type: ARTERIAL B LOOD SPECIMENOrdering Facility: [facility] Address: [address] [place], [place] [id number] Performed By: #### A LLBG ####[facility] [id number] [place] [id number] [place] 01-25-2024 18:17-0400 SaO2% (BldA) [Mass fraction] 98 % NA [facility] Comment on above: Order Comment: Specimen Type: ARTERIAL B LOOD SPECIMENOrdering Facility: [facility] Address: [address] [place] [address] Performed By: #### A LLBG ####[facility] [id number] [place] [id number] [place] 01-25-2024 15:49-0400 SaO2% (BldA) [Mass fraction] 100 % NA [facility] Comment on above: Order Comment: Specimen Type: ARTERIAL B LOOD SPECIMENOrdering Facility: [facility] Address: [address] [place], [place] [address] Performed By: #### A LLBG ####[facility] [id number] [place] [id number] [place] 01-25-2024 13:24-0400 SaO2% (BldA) [Mass fraction] 100 % NA [facility] Comment on above: Order Comment: Specimen Type: ARTERIAL B LOOD SPECIMENOrdering Facility: [facility] Address: [address] [place] [address] Performed By: #### A LLBG ####[facility] [id number] [place] [id number] [place] [facility] 01-25-2024 11:23-0400 SaO2% (BldA) [Mass fraction] 99 % NA [facility] Comment on above: Order Comment: Specimen Type: ARTERIAL B LOOD SPECIMENOrdering Facility: [facility] Address: [address] [place] [address] Performed By: #### A LLBG ####[facility] [id number] [place] [id number] [place] 01-25-2024 08:28-0400 SaO2% (BldA) [Mass fraction] 99 % NA [facility] Comment on above: Order Comment: Specimen Type: ARTERIAL B LOOD SPECIMENOrdering Facility: [facility] Address: [address] [place] [address] Performed By: #### A LLBG ####[facility] [id number] [address] [place] 01-25-2024 05:12-0400 SaO2% (BldA) [Mass fraction] 99 % NA [facility] Comment on above: Order Comment: Specimen Type: ARTERIAL B LOOD SPECIMENOrdering Facility: [facility] Address: [address] [place] [address] Performed By: #### A LLBG ####[facility] [id number] [place] [id number] [place] 01-25-2024 03:44-0400 SaO2% (BldA) [Mass fraction] 99 % NA [facility] Comment on above: Order Comment: Specimen Type: ARTERIAL B LOOD SPECIMENOrdering Facility: [facility] Address: [address] [place] [address] Performed By: #### A LLBG ####[facility] [id number] [place] [id number] [place] 01-25-2024 01:33-0400 SaO2% (BldA) [Mass fraction] 99 % NA [facility] Comment on above: Order Comment: Specimen Type: ARTERIAL B LOOD SPECIMENOrdering Facility: [facility] Address: [address] [place] [address] Performed By: #### A LLBG ####[facility] [id number] [place] [id number] [place] 01-24-2024 23:39-0400 SaO2% (BldA) [Mass fraction] 99 % NA [facility] Comment on above: Order Comment: Specimen Type: ARTERIAL B LOOD SPECIMENOrdering Facility: [facility] Address: [address] [place] [address] Performed By: #### A LLBG ####[facility] [id number] [place] [id number] [place] 01-24-2024 21:27-0400 SaO2% (BldA) [Mass fraction] 100 % NA [facility] Comment on above: Order Comment: Specimen Type: ARTERIAL B LOOD SPECIMENOrdering Facility: [facility] Address: [address] [place] [address] Performed By: #### A LLBG ####[facility] [id number] [place] [id number] [place] 01-24-2024 19:21-0400 SaO2% (BldA) [Mass fraction] 99 % NA [facility] Comment on above: Order Comment: Specimen Type: ARTERIAL B LOOD SPECIMENOrdering Facility: [facility] Address: [address] [place], [place] [address] Performed By: #### A LLBG ####[facility] [id number] [place] [id number] [facility] 01-24-2024 17:30-0400 SaO2% (BldA) [Mass fraction] 99 % NA [facility] Comment on above: Order Comment: Specimen Type: ARTERIAL B LOOD SPECIMENOrdering Facility: [facility] Address: [address] [place], [place] [address] Performed By: #### A LLBG ####[facility] [id number] [place] [id number] [place] 01-24-2024 15:26-0400 SaO2% (BldA) [Mass fraction] 99 % NA [facility] Comment on above: Order Comment: Specimen Type: ARTERIAL B LOOD SPECIMENOrdering Facility: [facility] Address: [address] [place], [place] [address] Performed By: #### A LLBG ####[facility] [id number] [place] [id number] [facility] 01-24-2024 13:29-0400 SaO2% (BldA) [Mass fraction] 99 % NA [facility] Comment on above: Order Comment: Specimen Type: ARTERIAL B LOOD SPECIMENOrdering Facility: [facility] Address: [address] [place], [place] [address] Performed By: #### A LLBG ####[facility] [id number] [place] [id number] [facility] [place] 01-24-2024 11:21-0400 SaO2% (BldA) [Mass fraction] 99 % NA [facility] Comment on above: Order Comment: Specimen Type: ARTERIAL B LOOD SPECIMENOrdering Facility: [facility] Address: [address] [place] [address] Performed By: #### A LLBG ####[facility] [id number] [place] [id number] [facility] 01-24-2024 09:29-0400 SaO2% (BldA) [Mass fraction] 99 % NA [facility] Comment on above: Order Comment: Specimen Type: ARTERIAL B LOOD SPECIMENOrdering Facility: [facility] Address: [address] [place], [place] [address] Performed By: #### A LLBG ####[facility] [id number] [address] [address] [place] [facility] 01-24-2024 08:18-0400 SaO2% (BldA) [Mass fraction] 91 % NA [facility] Comment on above: Order Comment: Specimen Type: ARTERIAL B LOOD SPECIMENOrdering Facility: [facility] Address: [address] [place] [address] Performed By: #### A LLBG ####[facility] [id number] [place] [id number] [place] 01-24-2024 07:42-0400 SaO2% (BldA) [Mass fraction] 98 % NA [facility] Comment on above: Order Comment: Specimen Type: ARTERIAL B LOOD SPECIMENOrdering Facility: [facility] Address: [address] [place], [place] [address] Performed By: #### A LLBG ####[facility] [id number] [address] [address] [place] 01-24-2024 05:27-0400 SaO2% (BldA) [Mass fraction] 98 % NA [facility] Comment on above: Order Comment: Specimen Type: ARTERIAL B LOOD SPECIMENOrdering Facility: [facility] Address: [address] [place] [address] Performed By: #### A LLBG ####[facility] [id number] [address] [address] [place] 01-24-2024 03:29-0400 SaO2% (BldA) [Mass fraction] 99 % NA [facility] Comment on above: Order Comment: Specimen Type: ARTERIAL B LOOD SPECIMENOrdering Facility: [facility] Address: [address] [place] [address] Performed By: #### A LLBG ####[facility] [id number] [place] [id number] [place] 01-24-2024 01:30-0400 SaO2% (BldA) [Mass fraction] 99 % NA [facility] Comment on above: Order Comment: Specimen Type: ARTERIAL B LOOD SPECIMENOrdering Facility: [facility] Address: [address] [place] [address] Performed By: #### A LLBG ####[facility] [id number] [place] [id number] [place] 01-23-2024 23:43-0400 SaO2% (BldA) [Mass fraction] 98 % NA [facility] Comment on above: Order Comment: Specimen Type: ARTERIAL B LOOD SPECIMENOrdering Facility: [facility] Address: [address] [place] [address] Performed By: #### A LLBG ####[facility] [id number] [place] [id number] [place] 01-23-2024 21:33-0400 SaO2% (BldA) [Mass fraction] 99 % NA [facility] Comment on above: Order Comment: Specimen Type: ARTERIAL B LOOD SPECIMENOrdering Facility: [facility] Address: [address] [place], [place] [address] Performed By: #### A LLBG ####[facility] [id number] [place] [id number] [place] 01-23-2024 19:57-0400 SaO2% (BldA) [Mass fraction] 99 % NA [facility] Comment on above: Order Comment: Specimen Type: ARTERIAL B LOOD SPECIMENOrdering Facility: [facility] Address: [address] [place], [place] [address] Performed By: #### A LLBG ####[facility] [id number] [place] [id number] [facility] 01-23-2024 18:07-0400 SaO2% (BldA) [Mass fraction] 100 % NA [facility] Comment on above: Order Comment: Specimen Type: ARTERIAL B LOOD SPECIMENOrdering Facility: [facility] Address: [address] [place], [place] [address] Performed By: #### A LLBG ####[facility] [id number] [place] [id number] [place] 01-23-2024 16:55-0400 SaO2% (BldA) [Mass fraction] 99 % NA [facility] Comment on above: Order Comment: Specimen Type: ARTERIAL B LOOD SPECIMENOrdering Facility: [facility] Address: [address] [place] [address] Performed By: #### A LLBG ####[facility] [id number] [place] [id number] [place] 01-23-2024 15:39-0400 SaO2% (BldA) [Mass fraction] 99 % NA [facility] Comment on above: Order Comment: Specimen Type: ARTERIAL B LOOD SPECIMENOrdering Facility: [facility] Address: [address] [place], [place] [address] Performed By: #### A LLBG ####[facility] [id number] [place] [id number] [place] 01-23-2024 15:10-0400 SaO2% (BldA) [Mass fraction] 99 % NA [facility] Comment on above: Order Comment: Specimen Type: ARTERIAL B LOOD SPECIMENOrdering Facility: [facility] Address: [address] [place] [address] Performed By: #### A LLBG ####[facility] [id number] [place] [id number] [facility] 01-23-2024 14:34-0400 SaO2% (BldA) [Mass fraction] 100 % NA [facility] Comment on above: Order Comment: Specimen Type: ARTERIAL B LOOD SPECIMENOrdering Facility: [facility] Address: [address] [place] [address] Performed By: #### A LLBG ####[facility] [id number] [address] 01-23-2024 14:09-0400 SaO2% (BldA) [Mass fraction] 100 % NA [facility] Comment on above: Order Comment: Specimen Type: ARTERIAL B LOOD SPECIMENOrdering Facility: [facility] Address: [address] [place] [address] Performed By: #### A LLBG ####[facility] [id number] [address] [place] 01-23-2024 13:18-0400 SaO2% (BldA) [Mass fraction] 99 % NA [facility] Comment on above: Order Comment: Specimen Type: ARTERIAL B LOOD SPECIMENOrdering Facility: [facility] Address: [address] [place] [address] Performed By: #### A LLBG ####[facility] [id number] [place] [id number] [place] 01-23-2024 12:17-0400 SaO2% (BldA) [Mass fraction] 99 % NA [facility] Comment on above: Order Comment: Specimen Type: ARTERIAL B LOOD SPECIMENOrdering Facility: [facility] Address: [address] [place] [address] Performed By: #### A LLBG ####[facility] [id number] [place] [id number] [place] 01-23-2024 10:55-0400 SaO2% (BldA) [Mass fraction] 100 % NA [facility] Comment on above: Order Comment: Specimen Type: ARTERIAL B LOOD SPECIMENOrdering Facility: [facility] Address: [address] [place] [address] Performed By: #### A LLBG ####[facility] [id number] [place] [id number] [place] 01-23-2024 09:36-0400 SaO2% (BldA) [Mass fraction] 100 % NA [facility]OB[facility] Comment on above: Order Comment: Specimen Type: ARTERIAL B LOOD SPECIMENOrdering Facility: [facility] Address: [address] [place] [address] Performed By: #### A LLBG ####[facility] [id number] [place] [id number] [place] 01-23-2024 08:51-0400 SaO2% (BldA) [Mass fraction] 100 % NA [facility] Comment on above: Order Comment: Specimen Type: ARTERIAL B LOOD SPECIMENOrdering Facility: [facility] Address: [address] [place] [address] Performed By: #### A LLMG ####[facility] [id number] [place] [id number] [place] 01-23-2024 07:09-0400 SaO2% (BldA) [Mass fraction] 99 % NA [facility] Comment on above: Order Comment: Specimen Type: ARTERIAL B LOOD SPECIMENOrdering Facility: [facility] Address: [address] [place], [place] [address] Performed By: #### A LLBG ####[facility] [id number] [place] [id number] [place] 01-19-2024 12:29-0400 Diastolic blood pressure 60 mm[Hg] Moiz Koenig MD Work Phone: [facility] 01-19-2024 12:29-0400 Systolic blood pressure 108 mm[Hg] Moiz Koenig MD Work Phone: [facility] 01-19-2024 12:26-0400 Body height 182.9 cm Moiz Koenig MD Work Phone: [facility] 01-19-2024 12:26-0400 Body mass index (BMI) [Ratio] 43.13 kg/m2 Moiz Koenig MD Work Phone: [facility] 01-19-2024 12:26-0400 Body weight 144.24 kg Moiz Koenig MD Work Phone: [facility] 01-19-2024 12:26-0400 Heart rate 60 /min Moiz Koenig MD Work Phone: [facility] 01-19-2024 12:26-0400 Respiratory rate 12 /min Moiz Koenig MD Work Phone: [facility] 01-19-2024 12:26-0400 SaO2% (BldA) [Mass fraction] 95 % Moiz Koenig MD Work Phone: [facility] 09-07-2016 15:07-0400 BMI (Body Mass Index) 43.67 kg/m2 Birdie Garcia [facility] Work Phone: 09-07-2016 15:07-0400 Body weight 146.06 kg Birdie Radha [facility] Work Phone: 09-07-2016 15:07-0400 Weight 146.06 kg Birdie Radha [facility] Work Phone: 11-30-2012 13:09-0400 Heart rate 78 /min Ibrdie Radha [facility] Work Phone: 11-30-2012 13:09-0400 Heart rate 398 ms Birdie Radha [facility] Work Phone: 11-30-2012 13:01-0400 BMI (Body Mass Index) 40.29 kg/m2 [facility] Work Phone: 11-30-2012 13:01-0400 BP Diastolic 90 mm[Hg] Anabelle Fry [facility] Work Phone: 11-30-2012 13:01-0400 BP Systolic 122 mm[Hg] [facility] Work Phone: 11-30-2012 13:01-0400 Pulse (Heart Rate) 78 /min Anabelle Fry [facility] Work Phone: 11-30-2012 13:01-0400 Respiratory Rate 20 /min [facility] Work Phone: 11-30-2012 13:01-0400 Weight 134.27 kg Anabelle Fry [facility] Work Phone: 06-22-2011 14:05-0500 Body Temperature 98.9 [degF] Anabelle Fry [facility] Work Phone: 06-22-2011 14:05-0500 BSA (Body Surface Area) 2.51 m2 Anabelle Ervin [facility] Work Phone: 06-22-2011 14:05-0500 Pulse Oximetry 95 % [facility] Work Phone: 05-30-2011 13:44-0500 Height 182.88 cm [facility] Work Phone: Encounters Encounter Date Encounter Type Care Provider Facility Start: 02-06-2024 End: 02-06-2024 Patient encounter procedure Liz Madsen APRN.NADEEN Work Phone: Cardiothoracic Comment on above: S/P MVR (mitral valv e repair) (Primary Dx); S/P TVR (tricuspid valve repair); S/P Maze operation for atrial fibrillation; Cardiac pacemaker in situ Start: 02-06-2024 End: 02-06-2024 ambulatory OMER WRAY Facility:[facility] Start: 02-06-2024 End: 02-06-2024 Subsequent hospital visit by physician Xr Chest Main J1 Work Phone: Radiology Comment on above: Surgery follow-up [] Start: 01-31-2024 End: 01-31-2024 Telephone encounter Brittany Valente RN NOC Comment on above: Follow Up Phone Call (RC follow up call all clear. /) Start: 01-29-2024 End: 01-29-2024 Evaluation and management of inpatient OMER WRAY Facility:[facility] Start: 01-29-2024 End: 01-29-2024 Evaluation and management of inpatient [facility] Work Phone: Cardiology Start: 01-23-2024 End: 01-29-2024 Evaluation and management of inpatient [facility] Work Phone: Cardiology Start: 01-22-2024 End: 01-22-2024 Patient encounter status Phillip Diamond MD Work Phone: [facility] Start: 01-22-2024 End: 01-22-2024 Admission to same day surgery center Anesthesia Clearance Work Phone: [facility] Work Phone: Start: 01-22-2024 End: 01-22-2024 ambulatory A Tunde Diamond MD Work Phone: Cardiothoracic Comment on above: Patient Education Start: 01-22-2024 End: 01-22-2024 Patient encounter procedure Anesthesia Clearance Work Phone: Cardiothoracic Comment on above: Encounter for preope rative anesthesiology assessment for cardiac surgery (Primary Dx) Mitral valve insuffi ciency, unspecified etiology (Primary Dx) 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); Pre-operative cardiovascular examination; Atrial fibrillation, unspecified type (HCC); Mitral valve disorder Start: 01-19-2024 Encounter for other preprocedural examination MOIZ KOENIG [facility] Start: 01-19-2024 Encounter for preprocedural cardiovascular examination MAYLIN DIAMOND [facility] Start: 01-19-2024 End: 01-19-2024 Subsequent hospital visit by physician [facility] Work Phone: Cardiology Comment on above: Pacemaker reprogramm ing/check [Z45.018] Start: 01-19-2024 End: 01-19-2024 Patient encounter procedure Pulm Fct Lab J-1 Pulmonary Medicine Comment on above: Pre-op exam (Primary Dx); Disorder of artery or arteriole (HCC); Pre-operative cardiovascular examination; Atrial fibrillation, unspecified type (HCC); Mitral valve disorder; Nonrheumatic mitral valve regurgitation; BALDERAS (dyspnea on exertion); PAF (paroxysmal atrial fibrillation) (HCC); Mitral valve prolapse Start: 01-19-2024 End: 01-19-2024 Preprocedural examination done Moiz Koenig MD Work Phone: [facility] Work Phone: Start: 01-19-2024 End: 01-19-2024 Subsequent hospital visit by physician Vangie Manzano (I-Stat) Work Phone: Radiology Comment on above: 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] Start: 01-19-2024 End: 01-19-2024 ambulatory Phillip DIAMOND Pulmonary Medicine Comment on above: Spirometry Start: 01-19-2024 End: 01-19-2024 Patient encounter status Moiz Koenig MD Work Phone: [facility] Start: 01-19-2024 End: 01-19-2024 Subsequent hospital visit by physician Dk Manzano1 Work Phone: Radiology Comment on above: 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] Start: 01-18-2024 Patient encounter status Pulm J-1 [facility] Start: 01-15-2024 End: 01-15-2024 ambulatory MAYLIN DIAMOND Facility:[facility] Start: 12-06-2023 Patient encounter status A Cee Diamond MD Work Phone: [facility] Start: 12-06-2023 Telephone encounter A Tunde ace MD Work Phone: Cardiothoracic Comment on above: Referral Information ; Pre-Op CTHO Consult; Cardiac Preop Checklist Start: 07-10-2023 End: 07-11-2023 ambulatory UNKNOWN PROVIDER Facility:[facility] Start: 03-07-2021 End: 03-07-2021 Emergency department patient visit REYNALDO BISHOP [facility] Start: 12-09-2020 ambulatory [facility] cility:[facility] Start: 03-07-2016 End: 03-08-2016 Ambulatory JANI Steve MAGGIE Facility:[facility] Procedures Date Procedure Procedure Detail Performing Clinician Start: 02-06-2024 Radiologic exam ches t 2 views Phillip Diamond MD Work Phone: Start: 01-29-2024 Echocardiography MAYLIN ACE Start: 01-27-2024 Antibody screen MAYLIN DA SILVA Comment on above: Order Comment: Speci men Type: BLOOD SPECIMENOrdering Facility: [facility] Address: [address] [place] [address] Performed By: #### T SCR ####CC MAIN BLOOD BANKCLIA [id number] [address] Start: 01-24-2024 Antibody screen MAYLIN DA SILVA Comment on above: Order Comment: Speci men Type: BLOOD SPECIMENOrdering Facility: [facility] Address: [address] [place] [address] Performed By: #### T SCR ####CC MAIN BLOOD BANKCLIA [id number] [address] Start: 01-23-2024 Program eval implant able in persn dual ld pacer Edwin Self PELLET PRESS OPERATOR.WEB UI DESIGNER Work Phone: Start: 01-19-2024 Co diffusing capacity Phillip Diamond MD Work Phone: Start: 01-19-2024 Echocardiography NA GINNY ACE Start: 01-19-2024 CTA CHEST/ABD/PEL (G ATED) W IVCON Phillip Diamond MD Work Phone: Start: 01-19-2024 Creatinine [Mass/vol ume] in Serum or Plasma [facility] Provider Start: 01-19-2024 Antibody screen MAYLIN DA SILVA Comment on above: Order Comment: Speci men Type: BLOOD SPECIMENOrdering Facility: [facility] Address: [address] [place] [address] Performed By: #### T SCR30 ####CC MAIN BLOOD BANKCLIA [id number] [address] Start: 01-19-2024 Radiologic exam ches t 2 views Phillip Diamond MD Work Phone: Start: 11-25-2019 Colonoscopy MAYLIN Rice v, MD Work Phone: Start: 09-07-2016 End: 09-07-2016 Documentation of current medications Birdie Garcia Start: 11-30-2012 End: 11-30-2012 *BMP Renuka Georges PA-C Work Phone: Start: 11-30-2012 End: 11-30-2012 24 hour holter monitor Renuka power PA-C Work Phone: Start: 11-30-2012 End: 11-30-2012 BNP Renuka Georges PA-C Work Phone: Start: 11-30-2012 End: 11-30-2012 CBC W Auto Differential panel - Blood Renuka Georges PA-C Work Phone: Start: 11-30-2012 End: 11-30-2012 COLLECTIONS PROFESSIONAL Renuka Georges PA-C Work Phone: Start: 11-30-2012 End: 11-30-2012 Electrocardiogram, complete Reunka Guerin PA-C Work Phone: Start: 11-30-2012 End: 11-30-2012 Follow Up Appt 6 months Renuka grover PA-C Work Phone: Start: 11-30-2012 End: 11-30-2012 Thyroid stimulating hormone (TSH) Renuka Georges PA-C Work Phone: Start: 11-16-2011 End: 11-16-2011 Follow Up Appt 1 year Omer Wray MD Plan of Treatment Date Care Activity Detail Author Start: 02-05-2027 Diabetes Screening Diabetes Screening [facility] Start: 01-28-2027 Diabetes Screening Diabetes Screening [facility] Start: 01-24-2027 Diabetes Screening Diabetes Screening [facility] Start: 01-18-2027 Diabetes Screening Diabetes Screening [facility] Start: 08-22-2025 Urine microalbumin profile DTaP,Tdap,Td Vaccine (3 - Td or Tdap) [facility] Start: 08-10-2025 Urine microalbumin profile DTaP,Tdap,Td Vaccine (2 - Td or Tdap) [facility] Start: 02-05-2025 BP Controlled (<130/80) BP Controlled (<130/80) [facility] Start: 01-18-2025 BP Controlled (<130/80) BP Controlled (<130/80) [facility] Start: 03-07-2024 Diabetes Screening Diabetes Screening [facility] Start: 02-06-2024 End: 02-06-2024 Follow-up encounter 02/06/2024 8:45 AM EDT Results Only Cardiology [address] [place] [address] Surgery Follow Up Cardiology Comment on above: Surgery Follow Up Start: 02-06-2024 End: 02-06-2024 ambulatory 02/06/2024 8:30 AM EDT Results Only [facility] [place] [facility] [address] [place] [address] CBC CMP [facility] [place] [facility] Comment on above: CBC CMP Start: 02-06-2024 End: 02-06-2024 Patient encounter procedure Radiology Comment on above: Surgery Follow Up Hospital Discharge J 08-22-20 Start: 01-23-2024 End: 01-23-2024 Admission to same day surgery center 01/23/2024 12:20 PM EDT - 01/23/2024 5:00 PM EDT Surgery Admitting [address] [id number] Phillip Diamond MD [address] [place] [address] MVr +/- MAZE ?Robot (2) Admitting Comment on above: MVr +/- MAZE ?Robot (2) Start: 01-23-2024 End: 01-23-2024 Maze procedure for atrial fibrillation FULL MAZE W/ CARDIOPULMONARY BYPASS Disorder of artery or arteriole (HCC) Pre-operative cardiovascular examination Atrial fibrillation, unspecified type (HCC) Mitral valve disorder 01/23/2024 12:20 PM EDT [facility] Start: 01-23-2024 Subsequent hospital visit by physician Admitting Comment on above: Disorder of artery or arteriole (HCC) [I 77.9] 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], Pre-operative cardiovascular examination [Z01.810], Atrial fibrillation, unspecified type (HCC) [I48.91], Mitral valve disorder [I05.9] Start: 01-23-2024 End: 01-23-2024 Vlvp mitral valve w/card byp w/prostc ring VALVULOPLASTY MITRAL W/ RING AND BYPASS Disorder of artery or arteriole (HCC) Pre-operative cardiovascular examination Atrial fibrillation, unspecified type (HCC) Mitral valve disorder 01/23/2024 12:20 PM EDT [facility] Start: 01-23-2024 End: 01-23-2024 Admission to same day surgery center 01/23/2024 11:10 AM EDT - 01/23/2024 3:50 PM EDT Surgery Admitting [address] [id number] Phillip Diamond MD [address] [place] [address] MVr +/- MAZE ?Robot (2) Admitting Comment on above: MVr +/- MAZE ?Robot (2) Start: 01-23-2024 End: 01-23-2024 Maze procedure for atrial fibrillation FULL MAZE W/ CARDIOPULMONARY BYPASS Disorder of artery or arteriole (HCC) Pre-operative cardiovascular examination Atrial fibrillation, unspecified type (HCC) Mitral valve disorder 01/23/2024 11:10 AM EDT [facility] Start: 01-23-2024 Subsequent hospital visit by physician 01/23/2024 11:10 AM EDT Hospital Encounter Admitting [address] [place] [address] Phillip Diamond MD [address] [place] [address] Disorder of artery or arteriole (HCC) [I77.9], Pre-operative cardiovascular examination [Z01.810], Atrial fibrillation, unspecified type (HCC) [I48.91], Mitral valve disorder [I05.9] Admitting Comment on above: Disorder of artery or arteriole (HCC) [I 77.9], Pre-operative cardiovascular examination [Z01.810], Atrial fibrillation, unspecified type (HCC) [I48.91], Mitral valve disorder [I05.9] Start: 01-23-2024 End: 01-23-2024 Vlvp mitral valve w/card byp w/prostc ring VALVULOPLASTY MITRAL W/ RING AND BYPASS Disorder of artery or arteriole (HCC) Pre-operative cardiovascular examination Atrial fibrillation, unspecified type (HCC) Mitral valve disorder 01/23/2024 11:10 AM EDT [facility] Start: 01-23-2024 End: 01-23-2024 Admission to same day surgery center 01/23/2024 6:30 AM EDT - 01/23/2024 11:10 AM EDT Surgery Admitting [address] [place] [address] Phillip Diamond MD [address] [place] [address] MVr +/- MAZE ?Robot (2) Admitting Comment on above: MVr +/- MAZE ?Robot (2) Start: 01-23-2024 End: 01-23-2024 Anesthesia consultation 01/23/2024 6:30 AM EDT Anesthesia Event Admitting [address] [place] [address] Willow Armas SRNA Admitting Start: 01-23-2024 End: 01-23-2024 Maze procedure for atrial fibrillation FULL MAZE W/ CARDIOPULMONARY BYPASS Disorder of artery or arteriole (HCC) Pre-operative cardiovascular examination Atrial fibrillation, unspecified type (HCC) Mitral valve disorder 01/23/2024 6:30 AM EDT [facility] Start: 01-23-2024 Subsequent hospital visit by physician 01/23/2024 6:30 AM EDT Hospital Encounter Admitting [address] [place] [address] Phillip Diamond MD [address] [place], [place] [id number] Disorder of artery or arteriole (HCC) [I77.9], Pre-operative cardiovascular examination [Z01.810], Atrial fibrillation, unspecified type (HCC) [I48.91], Mitral valve disorder [I05.9] Admitting Comment on above: Disorder of artery or arteriole (HCC) [I 77.9], Pre-operative cardiovascular examination [Z01.810], Atrial fibrillation, unspecified type (HCC) [I48.91], Mitral valve disorder [I05.9] Start: 01-23-2024 End: 01-23-2024 Vlvp mitral valve w/card byp w/prostc ring VALVULOPLASTY MITRAL W/ RING AND BYPASS Disorder of artery or arteriole (HCC) Pre-operative cardiovascular examination Atrial fibrillation, unspecified type (HCC) Mitral valve disorder 01/23/2024 6:30 AM EDT [facility] Start: 01-22-2024 End: 01-22-2024 Patient encounter procedure Cardiothoracic Comment on above: MVr +/- MAZE ?Robot Start: 12-24-2023 Covid-19 Vaccine ( season) Covid-19 Vaccine ( season) [facility] Start: 12-24-2023 Influenza vaccination Influenza Vaccine (#1) [facility] Start: 12-08-2023 End: 03-08-2024 aPTT in Platelet poor plasma by Coagulation assay ACTIVATED PARTIAL THROMBOPLASTIN TIME Lab Routine Disorder of artery or arteriole (HCC) Pre-operative cardiovascular examination Atrial fibrillation, unspecified type (HCC) Mitral valve disorder Expected: 12/08/2023 (Approximate), Expires: 03/08/2024 [facility] Comment on above: Expected: 12/08/2023 (Approximate), Expi res: 03/08/2024 Start: 12-08-2023 End: 03-08-2024 CBC W Auto Differential panel - Blood COMPLETE BLOOD COUNT AND DIFFERENTIAL Lab Routine Disorder of artery or arteriole (HCC) Pre-operative cardiovascular examination Atrial fibrillation, unspecified type (HCC) Mitral valve disorder Expected: 12/08/2023, Expires: 03/08/2024 [facility] Comment on above: Expected: 12/08/2023, Expires: Start: 12-08-2023 End: 03-08-2024 Comprehensive metabolic 2000 panel - Serum or Plasma COMPREHENSIVE METABOLIC PANEL Lab Routine Disorder of artery or arteriole (HCC) Pre-operative cardiovascular examination Atrial fibrillation, unspecified type (HCC) Mitral valve disorder Expected: 12/08/2023, Expires: 03/08/2024 [facility] Work Phone: Comment on above: Expected: 12/08/2023, Expires: Start: 12-08-2023 End: 03-08-2024 CONFIRM BLOOD TYPE CONFIRM BLOOD TYPE Blood Bank Routine Disorder of artery or arteriole (HCC) Pre-operative cardiovascular examination Atrial fibrillation, unspecified type (HCC) Mitral valve disorder Expected: 12/08/2023, Expires: 03/08/2024 [facility] Comment on above: Expected: 12/08/2023, Expires: 4 Start: 12-08-2023 End: 03-08-2024 Lactate dehydrogenase [Enzymatic activity/volume] in Serum or Plasma LACTATE DEHYDROGENASE Lab Routine Disorder of artery or arteriole (HCC) Pre-operative cardiovascular examination Atrial fibrillation, unspecified type (HCC) Mitral valve disorder Expected: 12/08/2023, Expires: 03/08/2024 [facility] Comment on above: Expected: 12/08/2023, Expires: 4 Start: 12-08-2023 End: 03-08-2024 PT panel - Platelet poor plasma by Coagulation assay PROTHROMBIN TIME Lab Routine Disorder of artery or arteriole (HCC) Pre-operative cardiovascular examination Atrial fibrillation, unspecified type (HCC) Mitral valve disorder Expected: 12/08/2023 (Approximate), Expires: 03/08/2024 [facility] Comment on above: Expected: 12/08/2023 (Approximate), Expi res: 03/08/2024 Start: 12-08-2023 End: 03-08-2024 TYPE AND SCREEN,30 DAY TYPE AND SCREEN,30 DAY Blood Bank Routine Disorder of artery or arteriole (HCC) Pre-operative cardiovascular examination Atrial fibrillation, unspecified type (HCC) Mitral valve disorder Expected: 12/08/2023, Expires: 03/08/2024 [facility] Comment on above: Expected: 12/08/2023, Expires: 4 Start: 12-08-2023 End: 03-08-2024 URINALYSIS, DIPSTICK ONLY URINALYSIS, DIPSTICK ONLY Lab Routine Disorder of artery or arteriole (HCC) Pre-operative cardiovascular examination Atrial fibrillation, unspecified type (HCC) Mitral valve disorder Expected: 12/08/2023, Expires: 03/08/2024 [facility] Comment on above: Expected: 12/08/2023, Expires: 4 Start: 04-24-2023 Advance Directive Discussion Advance Directive Discussion [facility] Start: 12-23-2022 Covid-19 Vaccine ( season) Covid-19 Vaccine ( season) [facility] Start: 2022 Pneumococcal Vaccine: 65+ (2 of 2 - PPSV23 or PCV20) Pneumococcal Vaccine: 65+ (2 of 2 - PPSV23 or PCV20) [facility] Start: 11-24-2020 Screening for malignant neoplasm of colon [facility] Start: 2017 RSV Vaccine (1 - 1-dose 60+ series) RSV Vaccine (1 - 1-dose 60+ series) [facility] Start: 2017 RSV Vaccine (1 - Risk 60-74 years 1-dose series) RSV Vaccine (1 - Risk 60-74 years 1-dose series) [facility] Start: 09-13-2016 End: 09-13-2016 Appointment Appointment [facility] Work Phone: Start: 09-07-2016 End: 09-07-2016 Appointment Appointment [facility] Work Phone: Start: 11-30-2012 End: 11-30-2012 *BMP *BMP [facility] Work Phone: Start: 11-30-2012 End: 11-30-2012 24 hour holter monitor 24 hour holter monitor [facility] Work Phone: Start: 11-30-2012 End: 11-30-2012 BNP *Brain Natriuretic Peptide BNP [facility] Work Phone: Start: 11-30-2012 End: 11-30-2012 CBC W Auto Differential panel - Blood *CBC without Diff [facility] Work Phone: Start: 11-30-2012 End: 11-30-2012 COLLECTIONS PROFESSIONAL COLLECTIONS PROFESSIONAL [facility] Work Phone: Start: 11-30-2012 End: 11-30-2012 Echocardiography Echocardiogram (complete) [facility] Work Phone: Start: 11-30-2012 End: 11-30-2012 Electrocardiogram, complete EKG (In office) [facility] Work Phone: Start: 11-30-2012 End: 11-30-2012 Follow Up Appt 6 months Follow Up Appt 6 months [facility] Work Phone: Start: 11-30-2012 End: 11-30-2012 Thyroid stimulating hormone (TSH) *TSH [facility] Work Phone: Start: 02-11-2012 Prostate specific antigen measurement Prostate Cancer Screening Discussion [facility] Start: 11-16-2011 End: 11-16-2011 Follow Up Appt 1 year Follow Up Appt 1 year [facility] Work Phone: Start: 2007 Shingrix Vaccine (1 of 2) Shingrix Vaccine (1 of 2) [facility] Start: 2002 Screening for malignant neoplasm of colon [facility] Start: 02-11-1992 Lipid panel Lipid Screening [facility] Start: 1975 Annual PCP Team Chronic Disease Visit Annual PCP Team Chronic Disease Visit [facility] Start: 1975 Anxiety Screening Anxiety Screening [facility] Start: 1975 Depression Screening Depression Screening [facility] Start: 1975 Hepatitis C screening Hepatitis C Screening [facility] Start: 1957 Abdominal aortic aneurysm screening Abdominal Aortic Aneurysm Screening [facility] CARDIAC IMPLANTABLE DEVICE CHECK CARDIAC IMPLANTABLE DEVICE CHECK PACEART Routine Pacemaker reprogramming/check 1 Occurrences starting 12/12/2023 [facility] Comment on above: 1 Occurrences starting 12/12/2023 End: 01-19-2024 CARDIAC IMPLANTABLE DEVICE CHECK CARDIAC IMPLANTABLE DEVICE CHECK PACEART Routine Pacemaker reprogramming/check 1 Occurrences starting 01/19/2024 until 01/19/2024 [facility] Comment on above: 1 Occurrences starting 01/19/2024 until 01/19/2024 End: 01-06-2025 CTA Chest vessels and Abdominal vessels and Pelvis vessels W contrast IV CTA CHEST/ABD/PEL (GATED) W IVCON Radiology Routine Disorder of artery or arteriole (HCC) Pre-operative cardiovascular examination Atrial fibrillation, unspecified type (HCC) Mitral valve disorder 1 Occurrences starting 12/08/2023 until 01/06/2025 [facility] Comment on above: 1 Occurrences starting 12/08/2023 until 01/06/2025 End: 12-07-2024 ECG COMPLETE ECG COMPLETE ECG Routine Disorder of artery or arteriole (HCC) Pre-operative cardiovascular examination Atrial fibrillation, unspecified type (HCC) Mitral valve disorder 1 Occurrences starting 12/08/2023 until 12/07/2024 [facility] Comment on above: 1 Occurrences starting 12/08/2023 until 12/07/2024 End: 12-07-2024 Echocardiography ECHO Cardiology Routine Disorder of artery or arteriole (HCC) Pre-operative cardiovascular examination Atrial fibrillation, unspecified type (HCC) Mitral valve disorder 1 Occurrences starting 12/08/2023 until 12/07/2024 [facility] Comment on above: 1 Occurrences starting 12/08/2023 until 12/07/2024 Electronic analysis antitachy pacemaker system ANALYZE PACER SYS Cardiology Routine Disorder of artery or arteriole (HCC) Pre-operative cardiovascular examination Atrial fibrillation, unspecified type (HCC) Mitral valve disorder Ordered: 12/08/2023 [facility] Comment on above: Ordered: 12/08/2023 End: 01-06-2025 LUNG DIFFUSION CAPACITY (DLCO) LUNG DIFFUSION CAPACITY (DLCO) PFT Routine Disorder of artery or arteriole (HCC) Pre-operative cardiovascular examination Atrial fibrillation, unspecified type (HCC) Mitral valve disorder 1 Occurrences starting 12/08/2023 until 01/06/2025 [facility] Comment on above: 1 Occurrences starting 12/08/2023 until 01/06/2025 LUNG DIFFUSION CAPAC ITY (DLCO) LUNG DIFFUSION CAPACITY (DLCO) PFT Routine Disorder of artery or arteriole (HCC) Pre-operative cardiovascular examination Atrial fibrillation, unspecified type (HCC) Mitral valve disorder 01/19/2024 2:35 PM EDT [facility] Work Phone: End: 01-06-2025 SPIROMETRY BASELINE ONLY SPIROMETRY BASELINE ONLY PFT Routine Disorder of artery or arteriole (HCC) Pre-operative cardiovascular examination Atrial fibrillation, unspecified type (HCC) Mitral valve disorder 1 Occurrences starting 12/08/2023 until 01/06/2025 [facility] Comment on above: 1 Occurrences starting 12/08/2023 until 01/06/2025 SPIROMETRY BASELINE ONLY SPIROME TRY BASELINE ONLY PFT Routine Disorder of artery or arteriole (HCC) Pre-operative cardiovascular examination Atrial fibrillation, unspecified type (HCC) Mitral valve disorder 01/19/2024 2:35 PM EDT [facility] Work Phone: End: 01-06-2025 XR Chest PA and Lateral XR CHEST 2V FRONTAL/LAT Radiology Routine Disorder of artery or arteriole (HCC) Pre-operative cardiovascular examination Atrial fibrillation, unspecified type (HCC) Mitral valve disorder 1 Occurrences starting 12/08/2023 until 01/06/2025 [facility] Comment on above: 1 Occurrences starting 12/08/2023 until 01/06/2025 Payers Date Payer Category Payer Medicare MEDICARE MEDICAR E A AND B [id number] 2022-Present [phone] [place] [address] Medicare [id number] 2022 Unknown [id number] 2022 Medicare [id number] 2022 Medicare [id number] 2017 Unknown [id number] 2007 Private Health Insurance [facility] [employer] [id number] 2007-Present [phone] [address] [place] [address] PPO [id number] 2007 Unknown [id number] 1957 Unknown [id number] 1957 Unknown [id number] 1957 Unknown [id number] Unknown [id number] Social History Date Type Detail [facility] Work Phone: Start: 05-31-2006 End: 02-06-2024 Alcohol intake Current drinker of alcohol (finding) [facility] Start: 10-29-2021 End: 01-15-2024 History of Social function [facility] Work Phone: Start: 10-29-2021 End: 01-15-2024 Area Deprivation Index [facility] Work Phone: National Score (1-10 0), lower number is lower risk 57 [facility] Work Phone: Start: 1955 Sex Assigned At Not on file [facility] Start: 09-27-2024 [facility] Start: 1977 End: 1973 History of tobacco use Current smoker [facility] Start: 1977 End: 1973 History of tobacco use Cigarette Smoker [facility] History of tobacco use Passive smoker [facility] Start: 01-19-2024 Tobacco use and exposure Forme r smokeless tobacco user [facility] End: 02-11-2000 History of tobacco use Chews Tobacco [facility] Medical Equipment Procedure Code Equipment Code Equipment Original Text Equipment Identifier Dates [id number] Start : 11-22-2017 [id number] Start : 11-22-2017 [id number] Start : 12-01-2017 Clip Atriclip G[place]ov-Arlette 180d Long 35mm 25mm Internal Head - [id number] Start: 01-23-2024 Blum Thk1.65mm P tfe 4x.5in Cardiovascular Sterile - [id number] Start: 01-23-2024 Band Suazo Ancor e 33mm Annuloplasty Chordal Guide - [id number] Start: 01-23-2024 Band Suazo Ancor e 31mm 77mm Annuloplasty Chordal Guide - [id number] Start: 01-23-2024 Goals Date Patient Goal Desired Activity /State Personal health goal Clinical Notes 12-06-2023 to 02-06-2024 Patient InstructionsLiz Madsen APRN.WEB UI DESIGNER - 02/06/2024 9:00 AM Africa Smith RT(R) - 02/06/2024 8:15 AM EDTTelephone Encounter - Brittany Valente RN - 01/31/2024 12:12 PM EDT Note Date & Type Note Facility 02-06-2024 Instructions Liz Madsen APRN.CNP - 02/06/2024 9:04 AM EDT Follow up with PCP next week with repeat cbc and cmp to monitor trends. Follow up with field checker in 4-6 weeks with consideration of repeat echo.Cardiology to determine clearance for return to work and order Cardiac Rehab Phase II if not already given at the time of discharge. No further refills unless specified by local providers. documented in this encounter [facility] 02-06-2024 History of Presen t illness Narrative Images from the original note were not included. [facility] [place] [facility] Department of Cardiovascular Medicine DEPARTMENT OF CARDIAC SURGERY OUTPATIENT VISIT DATE February 06, 2024 OUTPATIENT VISIT TYPE POSTOPERATIVE Tre Melo is a 68 year old male who presents who is here for post operative follow up HPI: S/P on 01/23/2024 [facility] Surgeon: Phillip Diamond MD SURGERY: Mitral valve annuloplasty with size 33mm Suazo annuloplasty band and corknot. Tricuspid valve annuloplasty with size 31mm Suazo annuloplasty band. Biatrial Maze with radiofrequency and cryoablation. Left atrial appendage closure with size 35mm Atriclip. Postop in CVICU had a PEA arrest, compressions, ROSC obtained Discharged on 01/29/2024 PAST MEDICAL HISTORY Diagnosis Date Other anxiety states PMH - PAST MEDICAL HISTORY OF Scar tissue around nerve ending,causing electrical problem PAST SURGICAL HISTORY Procedure Laterality Date PAST SURGICAL HISTORY OF Arthroscopic left knee ALLERGIES Allergen Reactions Hydrochlorothiazide Other: See Comments Gout Influenza Virus Vac* Other: See Comments Flu like illness Pollen Extracts Itching Watery, red eyes and sneezing Current Outpatient Medications Medication Sig lisinopril (ZESTRIL) 5 mg tablet Take 1 tablet by mouth once daily. acetaminophen (TYLENOL) 325 mg tablet Take 1-2 tablets by mouth every 4 hours as needed for pain. aspirin 81 mg chewable tablet Take 1 tablet by mouth once daily. oxyCODONE IR (ROXICODONE) 5 mg immediate release tablet Take 1 tablet by mouth every 6 hours as needed for pain for up to 7 days. polyethylene glycol 3350 17 gram packet Take 1 Packet by mouth once daily as needed for constipation. Dissolve dose in 4 - 8 ounces of liquid and take as directed. senna-docusate (SENNA-S) 8.6-50 mg per tablet Take 1 tablet by mouth two times a day as needed for constipation. albuterol (PROVENTIL) 2.5 mg /3 mL (0.083 %) nebulizer solution Inhale as instructed every 4 hours as needed. amiodarone (PACERONE) 200 mg tablet Take 200 mg by mouth once daily. amoxicillin (AMOXIL) 500 mg capsule TAKE 4 CAPSULES BY MOUTH ONE HOUR PRIOR TO DENTAL APPOINTMENT. cholecalciferol (VITAMIN D3) 50 mcg (2,000 unit) tablet Take 50 mcg by mouth once daily. empagliflozin (JARDIANCE) 25 mg tablet Take 12.5 mg by mouth daily with breakfast. eplerenone (INSPRA) 25 mg tablet Take 12.5 mg by mouth once daily. furosemide (LASIX) 20 mg tablet Take 20 mg by mouth once daily. ipratropium 20 mcg-albuterol 100 mcg (COMBIVENT RESPIMAT) 20-100 mcg/actuation inhaler Inhale as instructed every 4 hours as needed. metoprolol succinate ER (TOPROL XL) 50 mg 24 hr tablet Take 50 mg by mouth once daily. rivaroxaban (XARELTO) 20 mg tablet Take 20 mg by mouth once daily. diclofenac (VOLTAREN ARTHRITIS PAIN) 1 % topical gel Apply 2 g to affected area as needed. No current facility-administered medications for this visit. Chief Complaints: overall ok , just weak with some lightheadedness Discharge Post Operative Course: Pain scale :Yes chest wall and back manageable with tylenol Appetite: appetite good Activity: Walking ad raisa around the house Elimination: normal, no constipation , urination is normal Sleep: difficulty staying asleep Mood: normal Incisions/Wounds: healing Review of Systems: HEENT: Negative for fevers since discharge Cardiac: Denies significant problems, chest pain, Arrhythmia, and improving BLE Respiratory: notes some sob with exertion improves with rest Musculoskeletal: No history of joint swelling, joint pain, or loss of range of motion. Neuro: Denies neurological complaints Physical Exam: BP 105/56 Pulse 70 Temp 37.3 C (99.1 F) (Temporal) Resp 16 Ht 182.9 cm (6') Wt (!) 146.1 kg (322 lb) SpO2 95% BMI 43.67 kg/m Appearance: well developed, obese, white male, in no acute distress Neck: No neck vein distention Cardiac: regular S1, S2, No murmur, No rub, PPm site c/d/i Lungs: Diminished breath sounds bilateral bases Abdomen: soft, non tender, obese, Normal bowel sounds Extremities: Edema: bilateral Trace Sternum: stable, no click Sternotomy site: healing, clean, dry and intact Wound: NA Procedures: Sutures removed from chest tube sites without difficulty. IMPRESSION & PLAN: 1.S/P on 01/23/2024 [facility] Surgeon: Phillip Diamond MD SURGERY: Mitral valve annuloplasty with size 33mm Suazo annuloplasty band and corknot. Tricuspid valve annuloplasty with size 31mm Suazo annuloplasty band. Biatrial Maze with radiofrequency and cryoablation. Left atrial appendage closure with size 35mm Atriclip. Postop in CVICU had a PEA arrest, compressions, ROSC obtained Post op echo: CONCLUSIONS: - Technically difficult exam due to bandages/chest tubes/wound and body habitus. - Exam indication: s/p MVr, TVr, PEA arrest - The left ventricle is normal in size. Left ventricular systolic function is normal. EF = 55 5% (visual est.) - The right ventricle is mildly dilated. Right ventricular systolic function is normal. - Post mitral valve repair. Suazo Mitral Valve Annuloplasty Ring (size #33). There is trace mitral valve regurgitation. The peak gradient is 15 mmHg and the mean gradient is 6 mmHg. Prior peak/mean gradients were 11/6mmHg. Today's gradients obtained at HR of 101 bpm. - Post tricuspid valve repair. Suazo Tricuspid Valve Annuloplasty Ring (size #31). There is trace tricuspid valve regurgitation. The peak gradient is 9 mmHg and the mean gradient is 4 mmHg. Today's gradients obtained at HR of 96 bpm. - Exam was compared with the prior echocardiographic exam performed on 01/24/2024. Interval improvement in LVEF. Discharged on 01/29/2024 2. Afib, parox - pre op hx/with PPM in place - post op PEA arrest - Post op device check - currently afib cvr - continue bb, amio and eliquis - follow up with EP for further medical management EC02/06/2024 Diagnosis: ATRIAL FIBRILLATION NONSPECIFIC INTRAVENTRICULAR BLOCK POSSIBLE LATERAL MYOCARDIAL INFARCTION , AGE UNDETERMINED ABNORMAL ECG 3. Chronic Diastolic HF - post op EF 55% - CXR: improving with small pleural effusions - weight: up 1lbs since 01/26 - continue GDMT management - strong emphasis on Na, and fluid management. - with lightheadedness and soft BP continue same diuretic dose for now - encouraged to continue deep breathing exercises and walking - follow up with local [facility] for further medical management CXR: 02/06/2024 RESULT: Lines, tubes, and devices: Stable left chest pacemaker with its leads terminating in the right atrium and right ventricle. Status post median sternotomy, mitral and tricuspid valve repair as well as left atrial appendage clip placement. Lungs and pleura: Mild pulmonary edema and mild bibasilar atelectasis. Trace pleural effusions. No pneumothorax. Cardiomediastinal silhouette: Stable cardiomediastinal silhouette. Bones and soft tissues: Degenerative changes are present within the thoracic spine. 4. ABLA - post op - encouraged to increase dietary iron - repeat labs in one week with PCP to monitor trends LABS: Latest Ref Rng 01/29/2024 02/06/2024 Alkaline Phosphatase 38 - 113 U/L 78 89 AST 14 - 40 U/L 27 23 ALT 10 - 54 U/L 27 40 Glucose 74 - 99 mg/dL 98 97 BUN 9 - 24 mg/dL 28 (H) 36 (H) Creatinine 0.73 - 1.22 mg/dL 0.95 1.19 Sodium 136 - 144 mmol/L 136 140 Potassium 3.7 - 5.1 mmol/L 3.4 (L) 4.7 Latest Ref Rng 01/29/2024 02/06/2024 WBC 3.70 - 11.00 k/uL 7.60 9.24 RBC 4.20 - 6.00 m/uL 3.58 (L) 3.21 (L) Hemoglobin 13.0 - 17.0 g/dL 9.9 (L) 9.0 (L) Hematocrit 39.0 - 51.0 % 31.2 (L) 28.8 (L) Platelet Count 150 - 400 k/uL 191 403 (H) Summary: See above. Follow up with PCP next week with repeat cbc and cmp to monitor trends. Follow up with field checker in 4-6 weeks with consideration of repeat echo.Cardiology to determine clearance for return to work and order Cardiac Rehab Phase II if not already given at the time of discharge. Post op care and discharge orders reviewed with the patient- all questions were answered. Surgical sites healing without complication Discussed new medications, dosage, route of administration and side effects Reviewed walking program at home Reviewed diet guidelines for recovery from surgery Return to the clinic prn with signs or symptoms of infection, fevers, SOB, or pleural effusion SBE prophylaxis reviewed Discussed wound care Liz Madsen APRN.WEB UI DESIGNER documented in this encounter [facility] 02-06-2024 Note [facility] 02-06-2024 History of Presen t illness Narrative Radiology Service Progress Note PATIENT NAME: Tre Melo DATE OF SERVICE: February 06, 2024 TIME: 8:14 AM PATIENT IDENTITY VERIFICATION COMPLETED USING TWO (2) IDENTIFIERS: Name and Date of confirmed by patient verbally. FALL SCREENING: Has the patient had 2 falls in the last year or 1 fall with injury or currently using an Ambulatory Assistive Device (Walker, Cane, Wheelchair, Crutches, etc.)? No PATIENT GENDER DATA: Male PATIENT RELEVANT IMPLANT DATA REVIEWED: Not Applicable PATIENT PRESENTS WITH AN IMPLANTABLE OR ATTACHED CLEAN UP SUPERVISOR: No RADIOLOGY DEPARTMENT: General X-ray: Exam(s) Completed: Chest X-Ray PERIPHERAL IV DATA: Not applicable SIGNED BY: RT George(R) February 06, 2024 8:14 AM documented in this encounter [facility] 02-06-2024 Note [facility] 01-31-2024 Telephone encounter Note 1. Have you noticed any increase in shortness of breath since you left the hospital? no 2. Have you noticed any increased swelling in your feet, ankles, or belly? Skip for vascular pts no 3. Have you gained more than 2-3 pounds since discharge? Skip for vascular & EP pts no 4. Have you noticed any change in your incision, wound, IV sites since you were discharged as we want you to be aware of any signs of infection (fevers, chills, redness, warmth, swelling, increased tenderness, discharge)? no 5. Are you having any increased pain since discharge? If yes: What type of pain and where? (pressure, sharp pain, dull pain, etc.) Incisional pain flares up to an 8 out of 10, is using oxy q6 and tylenol in between. Suggested icing near the site (not directly on), does not want to try this yet as any touch is irritating. Will try a button up shirt so that the front where the incision is can be open. ED precautions discussed. 24 hour hot line provided. 6. Have you had any unplanned trips to the emergency department or hospital since you were discharged? If yes - why? no 7. Did you fill all of the prescribed medications? If no, do you need help filling your prescription? (Figure out why they re not filled) Yes 8. Do you have any questions about your medications? No 9. Do you have a doctor s appointment scheduled or is someone working on getting you a follow-up appointment? Yes Additional Comments: Pt instructed to contact 24-hour nurse hotline [phone] for any questions or concerns. Pt verbalized understanding. PD nurse confirmed/verified patient's and full name. All clear, closing statement given. Brittany Valente RN [facility] 01-31-2024 Miscellaneous Notes 1. Have you noticed any increase in shortness of breath since you left the hospital? no 2. Have you noticed any increased swelling in your feet, ankles, or belly? Skip for vascular pts no 3. Have you gained more than 2-3 pounds since discharge? Skip for vascular & EP pts no 4. Have you noticed any change in your incision, wound, IV sites since you were discharged as we want you to be aware of any signs of infection (fevers, chills, redness, warmth, swelling, increased tenderness, discharge)? no 5. Are you having any increased pain since discharge? If yes: What type of pain and where? (pressure, sharp pain, dull pain, etc.) Incisional pain flares up to an 8 out of 10, is using oxy q6 and tylenol in between. Suggested icing near the site (not directly on), does not want to try this yet as any touch is irritating. Will try a button up shirt so that the front where the incision is can be open. ED precautions discussed. 24 hour hot line provided. 6. Have you had any unplanned trips to the emergency department or hospital since you were discharged? If yes - why? no 7. Did you fill all of the prescribed medications? If no, do you need help filling your prescription? (Figure out why they re not filled) Yes 8. Do you have any questions about your medications? No 9. Do you have a doctor s appointment scheduled or is someone working on getting you a follow-up appointment? Yes Additional Comments: Pt instructed to contact 24-hour nurse hotline [phone] for any questions or concerns. Pt verbalized understanding. PD nurse confirmed/verified patient's and full name. All clear, closing statement given. Brittany Valente RN documented in this encounter [facility] 01-29-2024 Note [facility] 01-29-2024 Note [facility] 01-28-2024 Note [facility] 01-28-2024 Note HNO ID: [id number] Author: MIN JIMENEZ MD Service: Cardiac Surgery Author Type: Resident Type: Procedures Filed: 01/28/2024 09:40 Note Text: Pacing wires pulled this morning. Bedrest 30 minutes. Q15min vitals for first hour. Min Jimenez MD [facility] 01-28-2024 Note [facility] 01-27-2024 Note [facility] 01-26-2024 Note [facility] 01-25-2024 Note [facility] 01-25-2024 Note [facility] 01-24-2024 Note [facility] 01-23-2024 Note [facility] 01-23-2024 Note [facility] 01-23-2024 Note [facility] 01-23-2024 Note [facility] 01-23-2024 Note [facility] 01-23-2024 Note [facility] 01-23-2024 Note [facility] 01-22-2024 Note [facility] 01-22-2024 History of Presen t illness Narrative Images from the original note were not included. [facility] [place] DEPARTMENT OF CARDIAC SURGERY OUTPATIENT VISIT DATE January 22, 2024 OUTPATIENT VISIT SERVICE DATE: 01/22/2024 SERVICE TIME: 11:08 AM PCP: Omer Wray ([place]) [address] [facility] [address] [place] [address] Referring Physician: Phillip Diamond [address] [place], [place] [id number] Patient Type: New Visit to Determine Surgery: Yes HPI: Mr. Tre Melo is a 68 year old male seen regarding candidacy for cardiac surgery. He is currently symptomatic and complains of shortness of breath and dyspnea on exertion Comorbidities include obesity and atrial flutter and PPM. Last CT Result Conclusion CTA CHEST/ABD/PEL (GATED) W IVCON Exam End: 01/19/2024 10:22 AM (Final result) Impression: IMPRESSION: Moderate left atrial enlargement. The mitral valve leaflets are moderately thickened, somewhat redundant, but noncalcified. Normal thoracic and abdominal aorta. No acute aortic pathology identified. The pelvic arteries, including the common femoral arteries are normal in course, caliber, and contour. The minimal luminal caliber throughout = 12 mm Frozen Yogurt [facility] Transcribe Date/Time: Jan 19 2024 10:29A Dictated by : LUKE JOHNSON MD This examination was interpreted and the report reviewed and electronically signed by: LUKE JOHNSON MD on Jan 19 2024 10:47AM EST Last ECHO Result Conclusion ECHO Collected: 01/19/2024 11:06 AM (Final result) Impression: CONCLUSIONS: - Technically difficult exam due to body habitus. - Exam indication: Initial evaluation valvular heart disease - The left ventricle is mildly dilated. There is mild upper septal left ventricular hypertrophy. Left ventricular systolic function is normal. EF = 58 5% (2D biplane) Left ventricular diastolic function was not evaluated due to >2+ MR. - The right ventricle is normal in size. Right ventricular systolic function is normal. - The left atrial cavity is severely dilated. - The right atrial cavity is dilated. - There is at least moderately severe (3+) holosystolic mitral valve regurgitation due to prolapse. However jet severity is likely underestimated by TTE due to eccentricity of the posteriorly directed jet. Regurgitant orifice area (PISA) of 0.57 cm , pulmonary vein flow reversal and LV enlargement suggest MR is likely severe. - Estimated right ventricular systolic pressure is not reported due to an insufficient tricuspid regurgitation signal. Estimated right atrial pressure is 3 mmHg based on IVC assessment. - The patient has not had a prior CC echocardiographic exam for comparison. * * * Final * * * Impression: Atrial Fibrillation and Mitral Insufficiency Plan: Operative: Full Sternotomy. MV repair or SJ Biocor. Maze with AtriCure bipolar and stiff cryo and ROSALBA clip. ELEN. Amicar. ValveGate instruments. Possible anterior chords. ELEN. Amicar. Based on my evaluation he is a high risk for cardiac surgery. The risks, benefits and anticipated outcomes of the procedure, the risks and benefits of the alternatives to the procedure, and the roles and tasks of the personnel to be involved, were discussed with the patient, and the patient consents to the procedure and agrees to proceed. We discussed the possibility that there could be two patients undergoing surgery in two separate rooms (concurrent surgery) and that I would be present for the critical components of all operations. We also discussed that in an emergency situation, a qualified backup surgeon is available and in the rare event of such a serious situation, that colleague might take over the operation. These findings will be communicated back to the requesting physician via electronic medical record Phillip Diamond MD documented in this encounter [facility] 01-22-2024 Note [facility] 01-22-2024 History of Presen t illness Narrative AMBULATORY PATIENT EDUCATION READINESS TO LEARN Cognitive Ability: Alert and oriented Motivation To Learn: Interested Family Support: High - Very involved in pt care Instruction Provided To: Patient & Family Patient Learns Best By: Multiple Methods Factors Affecting Learning: None Physical Limitations Affecting Learning: None LEARNING RESPONSE Diagnosis: mr Education Topic: Pre-Op Open Heart Surgery Instructions Disease Process Teaching Points: Logistics / Protocols /Complication Prevention Instruction/Supplemental Materials: Cardiac Surgery Information Binder Individual Instruction Patient/Family Response: Somewhat Follow up plan: Patient/Family to call [facility] with any further questions Referral (Recommendation): None Teach completed, topic: pt instructed where to check in for surgery documented in this encounter [facility] 01-22-2024 History of Presen t illness Narrative Cardiothoracic Anesthesiology Preoperative Assessment Service Date: 01/22/2024 Service Time: 6:51 AM Primary Care Physician: Omer Wray MD Subjective Patient Entered Data: Scheduled procedure: Procedure: MVr +/- MAZE ?Robot (2) Surgeon: Tunde Diamond Scheduled date: 01/23/2024 HPI: 68 year old Male with PMH notable for: - hypertension, morbid obesity, JOSÉ MIGUEL, asthma, SSS with PPM in place and atrial arrhythmia s/p typical atrial flutter/PAT RFA in 2005 ([facility]), with redo in 2007, s/p CTI and atypical atrial flutter RFA in 2017 and atypical atrial flutter RFA in August 2018 with recurrence on sotalol, now on amiodarone Pt presents for preoperative evaluation prior to MVr +/- MAZE ?Robot (2). Pt is currently asymptomatic without any chest pain, shortness of breath, recent weight loss, fever, chills, nausea/vomiting, diarrhea. Patient instructed to: - Follow surgical instruction regarding warfarin/ASA therapy - Continue: Amiodarone, Ipratropium-Albuterol - Hold: Lasix, Eplerenone, Empagliflozin, Lisinopril Pt denies any problems with prior anesthetics. We additionally discussed the anesthetic plan, what to expect, and any questions or concerns the patient may have had. Review no known heparin intolerance not taking anticoagulant/antiplatelet medication no non-cardiac IEDs present no known esophageal disorders blood transfusion consented - The blood products consent form completed. A type & screen is resulted and no atypical antibodies identifed COVID-19 Immunization Status Overdue - Covid-19 Vaccine () Overdue since 12/24/2023 11/02/2021 Imm Admin: COVID-19 original vaccine, full dose, monovalent (MODERNA) 04/07/2021 Imm Admin: COVID-19 original vaccine, full dose, monovalent (MODERNA) 07/31/2020 Imm Admin: COVID-19 original vaccine, full dose, monovalent (MODERNA) Only the first 3 history entries have been loaded, but more history exists. The patient has the following: ACTIVE PROBLEM LIST Dermatophytosis of Groin and Perianal Area Dermatophytosis of Foot INTERTRIGO///ERYTHEMATOUS COND NEC Dermatophytosis of Nail Contact Dermatitis and Other Eczema, Due to Unspecified Cause Pre-Op Testing Pre-Op Exam Nonrheumatic Mitral Valve Regurgitation Balderas (Dyspnea On Exertion) Paf (Paroxysmal Atrial Fibrillation) (Hcc) Mitral Valve Prolapse PAST MEDICAL HISTORY Diagnosis Date Other anxiety states PMH - PAST MEDICAL HISTORY OF Scar tissue around nerve ending,causing electrical problem PAST SURGICAL HISTORY Procedure Laterality Date PAST SURGICAL HISTORY OF Arthroscopic left knee FAMILY HISTORY Problem Relation Age of Onset other ( at age 78) Mother Diabetes Mother Hypertension Mother other ( at age 82) Father other ( from [place] effects multiple cancers) Father Prostate Cancer Father No Known Problems Sister No Known Problems Sister No Known Problems Maternal Grandmother other (brain tumor) Maternal Grandfather No Known Problems Paternal Grandmother No Known Problems Paternal Grandfather other ( at age 45) Brother Lung Cancer Brother other (smoker) Brother No Known Problems Brother Heart Attack Maternal great-grandfather other ( at 2 months old) Son No Known Problems Son No Known Problems Daughter No Known Problems Daughter Social History Tobacco Use Smoking status: Former Current packs/day: 3.00 Average packs/day: 3.0 packs/day for 46.9 years (140.8 ttl pk-yrs) Types: Cigarettes Start date: 1977 Quit date: 1973 Passive exposure: Past Smokeless tobacco: Former Types: Chew Quit date: 02/11/2000 Substance Use Topics Alcohol use: Yes Comment: rarely Drug use: Never Prior to Admission medications as of 01/19/24 1226 Medication Sig Last Dose Taking albuterol (PROVENTIL) 2.5 mg /3 mL (0.083 %) nebulizer solution Inhale as instructed every 4 hours as needed. amiodarone (PACERONE) 200 mg tablet Take 200 mg by mouth once daily. amLODIPine (NORVASC) 5 mg tablet Take 5 mg by mouth once daily. amoxicillin (AMOXIL) 500 mg capsule TAKE 4 CAPSULES BY MOUTH ONE HOUR PRIOR TO DENTAL APPOINTMENT. cholecalciferol (VITAMIN D3) 50 mcg (2,000 unit) tablet Take 50 mcg by mouth once daily. empagliflozin (JARDIANCE) 25 mg tablet Take 12.5 mg by mouth daily with breakfast. eplerenone (INSPRA) 25 mg tablet Take 12.5 mg by mouth once daily. furosemide (LASIX) 20 mg tablet Take 20 mg by mouth once daily. ipratropium 20 mcg-albuterol 100 mcg (COMBIVENT RESPIMAT) 20-100 mcg/actuation inhaler Inhale as instructed every 4 hours as needed. lisinopril (ZESTRIL) 20 mg tablet Take 20 mg by mouth once daily. metoprolol succinate ER (TOPROL XL) 50 mg 24 hr tablet Take 50 mg by mouth once daily. rivaroxaban (XARELTO) 20 mg tablet Take 20 mg by mouth once daily. diclofenac (VOLTAREN ARTHRITIS PAIN) 1 % topical gel Apply 2 g to affected area as needed. No medication comments found. ALLERGIES Allergen Reactions Hydrochlorothiazide Other: See Comments Gout Influenza Virus Vac* Other: See Comments Flu like illness Pollen Extracts Itching Watery, red eyes and sneezing Objective Pain Assessment: Vitals: There were no vitals taken for this visit. Diagnostic tests reviewed for today's visit: Lab Value Units Date High Low HB 13.8 g/dL 01/19/2024 17.0 13.0 HCT 42.7 % 01/19/2024 51.0 39.0 WBC 8.25 k/uL 01/19/2024 11.00 3.70 PLT 211 k/uL 01/19/2024 400 150 NA 142 mmol/L 01/19/2024 144 136 K 4.7 mmol/L 01/19/2024 5.1 3.7 GLUC 80 mg/dL 01/19/2024 99 74 BUN 21 mg/dL 01/19/2024 24 9 CREAT 1.14 mg/dL 01/19/2024 1.22 0.73 CREAT 1.20 mg/dL 01/19/2024 1.4 0.7 PTSEC 10.4 sec 01/19/2024 13.0 9.7 INR 1.0 no uni* 01/19/2024 1.3 0.9 APTT 30.8 sec 01/19/2024 32.4 23.0 ALT 28 U/L 01/19/2024 54 10 AST 21 U/L 01/19/2024 40 14 TBILI 0.6 mg/dL 01/19/2024 1.3 0.2 TSH No results within date range. Lab Value Units Date High Low HCGQT No results within date range. UHCG No results within date range. HCG, BODY* No results within date range. Lab Value Units Date High Low ABORHD No results within date range. ABSCREEN No results within date range. No results found for: HBA1C Recent Results (from the past 8760 hour(s)) ECHO Collection Time: 01/19/24 11:06 AM Impression CONCLUSIONS: - Technically difficult exam due to body habitus. - Exam indication: Initial evaluation valvular heart disease - The left ventricle is mildly dilated. There is mild upper septal left ventricular hypertrophy. Left ventricular systolic function is normal. EF = 58 5% (2D biplane) Left ventricular diastolic function was not evaluated due to >2+ MR. - The right ventricle is normal in size. Right ventricular systolic function is normal. - The left atrial cavity is severely dilated. - The right atrial cavity is dilated. - There is at least moderately severe (3+) holosystolic mitral valve regurgitation due to prolapse. However jet severity is likely underestimated by TTE due to eccentricity of the posteriorly directed jet. Regurgitant orifice area (PISA) of 0.57 cm , pulmonary vein flow reversal and LV enlargement suggest MR is likely severe. - Estimated right ventricular systolic pressure is not reported due to an insufficient tricuspid regurgitation signal. Estimated right atrial pressure is 3 mmHg based on IVC assessment. - The patient has not had a prior CC echocardiographic exam for comparison. * * * Final * * * XR CHEST 2V FRONTAL/LAT Collection Time: 01/19/24 8:50 AM Impression IMPRESSION: See Result. Frozen Yogurt Maker: CHRISTOFER Transcribe Date/Time: Jan 19 2024 11:03A Dictated by : CONSTANTIN GREENE MD This examination was interpreted and the report reviewed and electronically signed by: CONSTANTIN GREENE MD on Jan 19 2024 11:04AM EST ECG COMPLETE Collection Time: 01/19/24 8:47 AM Impression WIDE QRS RHYTHM NONSPECIFIC INTRAVENTRICULAR BLOCK POSSIBLE LATERAL MYOCARDIAL INFARCTION , AGE UNDETERMINED CANNOT EXCLUDE INFERIOR MYOCARDIAL INFARCTION , AGE UNDETERMINED ABNORMAL ECG Assessment No problem-specific Assessment & Plan notes found for this encounter. ANESTHESIA FINDINGS: Intubation History: No history of difficult intubation. No abnormal airway history Significant Anesthesia Considerations: none Airway History: No history of difficult airway No abnormal airway history Prepared for Surgery: optimally prepared for surgery, pending day of surgery. The Following Tests/Procedures Have Been Initiated: Orders Placed This Encounter mupirocin (BACTROBAN) 2 % ointment Sig: Apply a small amount in each nostril using a cotton swab twice the day before surgery and once the morning of surgery. Dispense: 22 g Refill: 0 Order Comments: Supply patient with Q-tips and instruction sheet ASA Class: 4 Planned Anesthetic: general I - PHYSICAL EVALUATION AIRWAY Patient intubated: No. Tracheostomy tube not present Mallampati: I. TM distance: >3 FB. Neck ROM: full ROM without neurological symptoms. Mouth opening: adequate. Short neck: no. Thick neck: no DENTAL Dental findings: teeth intact. II - ANESTHESIA PLAN ASA Score: 4 Anesthetic Plan: general Airway type: ETT Beta Ac Monitoring Plan Post Procedure Analgesic Plan Informed Consent Anesthetic risks, benefits, alternatives, personnel and consent discussed: yes. Patient / Responsible [employer] agrees to proceed: yes Patient / Surrogate agrees to blood products: Yes Discussed the possibility of lip / dental damage: yes Instructions Given to Patient: Instructions located in the after visit summary. Patient given verbal and written preop instructions and voices comprehension and compliance. Signature: Jw Talley MD Patient Name: Tre Melo Date: January 22, 2024 Time: 6:51 AM Pager/Contact #: documented in this encounter [facility] 01-22-2024 Note [facility] 01-22-2024 Note [facility] 01-22-2024 History of Presen t illness Narrative CHART COPY-DO NOT DISCARD CARDIOVASCULAR SURGERY PRE-OPERATIVE ASSESSMENT NAME: Tre Melo Alert Notes: DATE: 01/22/2024 SEX: male : 1955 AGE: [age] year old Estimated body mass index is 43.13 kg/m as calculated from the following: Height as of 01/19/24: 182.9 cm (6'). Weight as of 01/19/24: 144.2 kg (318 lb). STS Score No data recorded No data recorded Patient scheduled for surgery on: No data recorded [facility] MD: Dr Almas Diamond CHIEF COMPLAINT: Pre-Op Open Heart Surgery MEDICATIONS: Current Outpatient Medications Medication Sig albuterol (PROVENTIL) 2.5 mg /3 mL (0.083 %) nebulizer solution Inhale as instructed every 4 hours as needed. amiodarone (PACERONE) 200 mg tablet Take 200 mg by mouth once daily. amLODIPine (NORVASC) 5 mg tablet Take 5 mg by mouth once daily. amoxicillin (AMOXIL) 500 mg capsule TAKE 4 CAPSULES BY MOUTH ONE HOUR PRIOR TO DENTAL APPOINTMENT. cholecalciferol (VITAMIN D3) 50 mcg (2,000 unit) tablet Take 50 mcg by mouth once daily. empagliflozin (JARDIANCE) 25 mg tablet Take 12.5 mg by mouth daily with breakfast. eplerenone (INSPRA) 25 mg tablet Take 12.5 mg by mouth once daily. furosemide (LASIX) 20 mg tablet Take 20 mg by mouth once daily. ipratropium 20 mcg-albuterol 100 mcg (COMBIVENT RESPIMAT) 20-100 mcg/actuation inhaler Inhale as instructed every 4 hours as needed. lisinopril (ZESTRIL) 20 mg tablet Take 20 mg by mouth once daily. metoprolol succinate ER (TOPROL XL) 50 mg 24 hr tablet Take 50 mg by mouth once daily. rivaroxaban (XARELTO) 20 mg tablet Take 20 mg by mouth once daily. diclofenac (VOLTAREN ARTHRITIS PAIN) 1 % topical gel Apply 2 g to affected area as needed. No current facility-administered medications for this visit. ALLERGIES: ALLERGIES Allergen Reactions Hydrochlorothiazide Other: See Comments Gout Influenza Virus Vac* Other: See Comments Flu like illness Pollen Extracts Itching Watery, red eyes and sneezing LATEX ALLERGY: No FOOD SENSITIVITIES: No ANTICOAGULANTS: xarelto 01/17/2024 STEROIDS: yes resp issues HISTORIES: FAMILY HISTORY Problem Relation Age of Onset other ( at age 78) Mother Diabetes Mother Hypertension Mother other ( at age 82) Father other ( from [place] effects multiple cancers) Father Prostate Cancer Father No Known Problems Sister No Known Problems Sister No Known Problems Maternal Grandmother other (brain tumor) Maternal Grandfather No Known Problems Paternal Grandmother No Known Problems Paternal Grandfather other ( at age 45) Brother Lung Cancer Brother other (smoker) Brother No Known Problems Brother Heart Attack Maternal great-grandfather other ( at 2 months old) Son No Known Problems Son No Known Problems Daughter No Known Problems Daughter PAST MEDICAL HISTORY Diagnosis Date Other anxiety states PMH - PAST MEDICAL HISTORY OF Scar tissue around nerve ending,causing electrical problem PAST SURGICAL HISTORY Procedure Laterality Date PAST SURGICAL HISTORY OF Arthroscopic left knee Social History Tobacco Use Smoking status: Former Current packs/day: 3.00 Average packs/day: 3.0 packs/day for 46.9 years (140.8 ttl pk-yrs) Types: Cigarettes Start date: 1977 Quit date: 1973 Passive exposure: Past Smokeless tobacco: Former Types: Chew Quit date: 02/11/2000 Substance Use Topics Alcohol use: Yes Comment: rarely Drug use: Never REVIEW OF SYSTEMS: GEN: Fatigue HEENT: Hard of Hearing , Dental Clearance DERM: Denies Dermatological Complaints TAILOR'S AIDE: dizziness frederick RESP: sob josé miguel CARD: HTN ppm mr afib GI: umb hernia : Denies complaints ENDO: Denies Endocrine Complaints HEME: Denies Hematological complaints MUSC/SKEL: Arthritis PVD: Denies PVD Varicose Veins: No BRUITS (Carotid): see cards note PULSES: Pedal Left 2 Right 2 NYHA CLASSIFICATION: Class 2 FAMILY HISTORY OF CAD: Yes right handed ? PERFUSION INDEX: Pacer Check: Done: CARDIAC EVALUATION: Cardiac Cath: Date - get images Ultrasound: Date - PFT: Date - 01/19/2024 ECHO: Last ECHO Result Conclusion ECHO Collected: 01/19/2024 11:06 AM (Final result) Impression: CONCLUSIONS: - Technically difficult exam due to body habitus. - Exam indication: Initial evaluation valvular heart disease - The left ventricle is mildly dilated. There is mild upper septal left ventricular hypertrophy. Left ventricular systolic function is normal. EF = 58 5% (2D biplane) Left ventricular diastolic function was not evaluated due to >2+ MR. - The right ventricle is normal in size. Right ventricular systolic function is normal. - The left atrial cavity is severely dilated. - The right atrial cavity is dilated. - There is at least moderately severe (3+) holosystolic mitral valve regurgitation due to prolapse. However jet severity is likely underestimated by TTE due to eccentricity of the posteriorly directed jet. Regurgitant orifice area (PISA) of 0.57 cm , pulmonary vein flow reversal and LV enlargement suggest MR is likely severe. - Estimated right ventricular systolic pressure is not reported due to an insufficient tricuspid regurgitation signal. Estimated right atrial pressure is 3 mmHg based on IVC assessment. - The patient has not had a prior CC echocardiographic exam for comparison. * * * Final * * * CT Scan: Last CT Result Conclusion CTA CHEST/ABD/PEL (GATED) W IVCON Exam End: 01/19/2024 10:22 AM (Final result) Impression: IMPRESSION: Moderate left atrial enlargement. The mitral valve leaflets are moderately thickened, somewhat redundant, but noncalcified. Normal thoracic and abdominal aorta. No acute aortic pathology identified. The pelvic arteries, including the common femoral arteries are normal in course, caliber, and contour. The minimal luminal caliber throughout = 12 mm Frozen Yogurt Maker: CHRISTOFER Transcribe Date/Time: Jan 19 2024 10:29A Dictated by : LUKE JOHNSON MD This examination was interpreted and the report reviewed and electronically signed by: LUKE JOHNSON MD on Jan 19 2024 10:47AM EST MRI: CXR: XR CHEST 2V FRONTAL/LAT Result Date: 01/19/2024 IMPRESSION: See Result. Frozen Yogurt Maker: CHRISTOFER Transcribe Date/Time: Jan 19 2024 11:03A Dictated by : CONSTANTIN GREENE MD This examination was interpreted and the report reviewed and electronically signed by: CONSTANTIN GREENE MD on Jan 19 2024 11:04AM EST EKG: Dental: Cleared ? Recent Labs 01/19/24 1011 01/19/24 0904 WBC -- 8.25 HB -- 13.8 HCT -- 42.7 PLT -- 211 INR -- 1.0 APTT -- 30.8 PTSEC -- 10.4 NA -- 142 K -- 4.7 BUN -- 21 CREAT 1.20 1.14 Pre Op Instructions per protocol reviewed and handout given to patient . Patient Education completed and documented. Instructed to start Bactroban per protocol. Emotional support provided to patient and family. All questions and concerns adressed. Signature: Gasper Alejandre RN See Cardiology History and Physical dated 01/19/2024 documented in this encounter [facility] 01-19-2024 Note HNO ID: [id number] Author: ZACK ABBASI RRT Service: ? Author Type: Registered Resp Therapist Type: Progress Notes Filed: 01/19/2024 15:00 Note Text: PULM FUNCTION: Provider: Phillip Diamond MD Spirometry: 1 DLCO: 1 [facility] 01-19-2024 History of Presen t illness Narrative PULM FUNCTION: Provider: Phillip Diamond MD Spirometry: 1 DLCO: 1 documented in this encounter [facility] 01-19-2024 Instructions Victor Hugo Christian DO - 01/19/2024 1:15 PM EDT Hold off Jardiance prior to surgery documented in this encounter [facility] 01-19-2024 History of Presen t illness Narrative Images from the original note were not included. [facility] [place] [facility] Department of Cardiovascular Medicine SECTION OF CARDIOVASCULAR IMAGING OUTPATIENT VISIT DATE 01/19/2024 OUTPATIENT VISIT TYPE CONSULTATION REFERRING PHYSICIAN Phillip Diamond [address] [place], [place] [id number] CHIEF COMPLAINT: Pre-operative evaluation. HISTORY OF PRESENT ILLNESS: Cardiac consultation at the request of Dr. Phillip Diamond. A copy of this consultation note will be provided to the requesting physician by way of shared Medical record or letter to requesting physician via US mail. Mr. Melo is a 68 year old male who is seen today for pre-operative evaluation. The patient has a medical history that includes hypertension, morbid obesity, JOSÉ MIGUEL, asthma, SSS with PPM in place and atrial arrhythmia s/p typical atrial flutter/PAT RFA in 2005 ([facility]), with redo in 2007, s/p CTI and atypical atrial flutter RFA in 2017 and atypical atrial flutter RFA in August 2018 with recurrence on sotalol, now on amiodarone. The patient reports severe dyspnea on exertion. He chops wood often which causes shortness of breath. Reports worsening dyspnea with climbing stairs. He states that he also has asthma for which he uses albuterol inhaler and combivent. He reports using his inhalers more often than normal. He also has a history of JOSÉ MIGUEL for which he uses CPAP at night. However, he reports difficulty with wearing the mask due to history of PTSD. The patient reports compliance with all of his medications. He reports some palpitations, weakness and trouble sleeping. He denies chest pain, edema. PAST CARDIAC HISTORY: Mitral regurgitation Atrial flutter/fib s/p PPM and multiple RFA PAST MEDICAL HISTORY Diagnosis Date Other anxiety states PMH - PAST MEDICAL HISTORY OF Scar tissue around nerve ending,causing electrical problem PAST SURGICAL HISTORY Procedure Laterality Date PAST SURGICAL HISTORY OF Arthroscopic left knee SOCIAL HISTORY Social History Tobacco Use Smoking status: Former Current packs/day: 3.00 Average packs/day: 3.0 packs/day for 46.9 years (140.8 ttl pk-yrs) Types: Cigarettes Start date: 1977 Quit date: 1973 Passive exposure: Past Smokeless tobacco: Former Types: Chew Quit date: 02/11/2000 Substance Use Topics Alcohol use: Yes Comment: rarely Drug use: Never FAMILY HISTORY Problem Relation Age of Onset other ( at age 78) Mother Diabetes Mother Hypertension Mother other ( at age 82) Father other ( from [place] effects multiple cancers) Father Prostate Cancer Father No Known Problems Sister No Known Problems Sister No Known Problems Maternal Grandmother other (brain tumor) Maternal Grandfather No Known Problems Paternal Grandmother No Known Problems Paternal Grandfather other ( at age 45) Brother Lung Cancer Brother other (smoker) Brother No Known Problems Brother Heart Attack Maternal great-grandfather other ( at 2 months old) Son No Known Problems Son No Known Problems Daughter No Known Problems Daughter ALLERGIES: ALLERGIES Allergen Reactions Hydrochlorothiazide Other: See Comments Gout Influenza Virus Vac* Other: See Comments Flu like illness Pollen Extracts Itching Watery, red eyes and sneezing MEDICATIONS: albuterol (PROVENTIL) 2.5 mg /3 mL (0.083 %) nebulizer solution Inhale as instructed every 4 hours as needed. amiodarone (PACERONE) 200 mg tablet Take 200 mg by mouth once daily. amLODIPine (NORVASC) 5 mg tablet Take 5 mg by mouth once daily. amoxicillin (AMOXIL) 500 mg capsule TAKE 4 CAPSULES BY MOUTH ONE HOUR PRIOR TO DENTAL APPOINTMENT. cholecalciferol (VITAMIN D3) 50 mcg (2,000 unit) tablet Take 50 mcg by mouth once daily. empagliflozin (JARDIANCE) 25 mg tablet Take 12.5 mg by mouth daily with breakfast. eplerenone (INSPRA) 25 mg tablet Take 12.5 mg by mouth once daily. furosemide (LASIX) 20 mg tablet Take 20 mg by mouth once daily. ipratropium 20 mcg-albuterol 100 mcg (COMBIVENT RESPIMAT) 20-100 mcg/actuation inhaler Inhale as instructed every 4 hours as needed. lisinopril (ZESTRIL) 20 mg tablet Take 20 mg by mouth once daily. metoprolol succinate ER (TOPROL XL) 50 mg 24 hr tablet Take 50 mg by mouth once daily. rivaroxaban (XARELTO) 20 mg tablet Take 20 mg by mouth once daily. diclofenac (VOLTAREN ARTHRITIS PAIN) 1 % topical gel Apply 2 g to affected area as needed. REVIEW OF SYSTEMS: GENERAL: Negative for: Weight loss or gain, Fever or Chills, Weakness and Sleep difficulties. HEENT: Negative for: Headache, Impaired Vision, Glasses, Hearing Impairment, Ringing in Ears, Nosebleeds, Poor dental care, Bleeding Gums, Dentures NECK: Negative for: Swelling, Pain, Stiffness RESPIRATORY: Negative for: Cough, Blood in Sputum, Shortness of breath, Wheezing, Apnea GASTROINTESTINAL: Negative for: Trouble swallowing, Heartburn, Change in bowel habits, Blood in stool, Dark black stools MUSCULOSKELETAL: Negative for: Muscle or joint pain, Stiffness, Joint swelling NEUROLOGIC/PSYCHIATRIC: Negative for: Weakness, Paralysis, Numbness, Tingling, Tremor, Nervousness, Depressed mood, Memory loss SKIN: Negative for: Rashes, Itching HEMATOLOGICAL/LYMPHATIC: Negative for: Easy bruising , Easy bleeding ENDOCRINE: Negative for: Heat or cold intolerance, Excessive sweating, Frequent urination, Frequent thirst PHYSICAL EXAMINATION: BP 108/60 (BP Site: Right Arm, BP Position: Sitting, BP Cuff Size: Large Adult) Pulse 60 Resp 12 Ht 182.9 cm (6') Wt (!) 144.2 kg (318 lb) SpO2 95% BMI 43.13 kg/m General: Well appearing, in no acute distress. Skin: No clubbing, no cyanosis. Eyes: Extra ocular movements intact Oropharynx: Teeth in good repair. Neck: No jugular venous distention, no carotid bruits, carotids have a normal upstroke. Lungs: Clear to auscultation bilaterally, no wheezing or rhonchi. Heart: Regular rhythm, PMI not displaced, S1, S2 normal, soft systolic murmur. Abdomen: Soft, nontender. Extremities: No peripheral edema. Neuro: Oriented to person, place and time, alert, cooperative, gait coordinated. CARDIOVASCULAR MEDICINE TESTING: Electrocardiogram: ventricle paced rhythm Echocardiogram:01/19/2024 - The left ventricle is mildly dilated. There is mild upper septal left ventricular hypertrophy. Left ventricular systolic function is normal. EF = 58 5% (2D biplane) Left ventricular diastolic function was not evaluated due to >2+ MR. - The right ventricle is normal in size. Right ventricular systolic function is normal. - The left atrial cavity is severely dilated. - The right atrial cavity is dilated. - There is at least moderately severe (3+) holosystolic mitral valve regurgitation due to prolapse. However jet severity is likely underestimated by TTE due to eccentricity of the posteriorly directed jet. Regurgitant orifice area (PISA) of 0.57 cm , pulmonary vein flow reversal and LV enlargement suggest MR is likely severe. - Estimated right ventricular systolic pressure is not reported due to an insufficient tricuspid regurgitation signal. Estimated right atrial pressure is 3 mmHg based on IVC assessment. - The patient has not had a prior CC echocardiographic exam for comparison. Cardiac CT Angiography: 01/19/2024 Moderate left atrial enlargement. The mitral valve leaflets are moderately thickened, somewhat redundant, but noncalcified. Normal thoracic and abdominal aorta. No acute aortic pathology identified. The pelvic arteries, including the common femoral arteries are normal in course, caliber, and contour. The minimal luminal caliber throughout = 12 mm OSH cath: 11/21/2023 OSH echo: 11/13/2023 OSH ELEN: 11/21/2023 I have personally reviewed the Electrocardiogram, Echocardiogram, Cardiac CT Angiography, and OSH cardiac testing. Last CT Result Conclusion CTA CHEST/ABD/PEL (GATED) W IVCON Exam End: 01/19/2024 10:22 AM (Final result) Impression: IMPRESSION: Moderate left atrial enlargement. The mitral valve leaflets are moderately thickened, somewhat redundant, but noncalcified. Normal thoracic and abdominal aorta. No acute aortic pathology identified. The pelvic arteries, including the common femoral arteries are normal in course, caliber, and contour. The minimal luminal caliber throughout = 12 mm Frozen Yogurt Maker: [facility] Transcribe Date/Time: Jan 19 2024 10:29A Dictated by : LUKE JOHNSON MD This examination was interpreted and the report reviewed and electronically signed by: LUKE JOHNSON MD on Jan 19 2024 10:47AM EST IMPRESSION: Mr. Melo is a 68 year old male who presents for cardiovascular evaluation. On my review of the OSH echocardiographic studies including ELEN, there is evidence of severe mitral regurgitation (see saved Image) which is posteriorly directed, related to prolapse and restricted posterior leaflet. I reviewed all of the imaging data in detail with Mr. Melo and his . Given severe mitral regurgitation, exertional dyspnea and AF, there is a class I indication for mitral valve surgery. 1. Pre-operative cardiovascular examination - ICD9: V72.81, ICD10: Z01.810 2. Atrial fibrillation, unspecified type (HCC) - ICD9: 427.31, ICD10: I48.91 - S/p PPM and RFA in 2006, 2008, 2016, and 2018. The severe mitral regurgitation is likely contributing to worsening and recurrent atrial arrhythmia. Plan -- Hold off rivaroxaban at least 3 days prior. -- Recommend holding off empagliflozin prior to mitral valve surgery. 3. Mitral valve disorder - ICD9: 394.9, ICD10: I05.9 Severe mitral valve regurgitation per most recent echo with associated symptoms of shortness of breath on exertion. Plan -- Mitral valve surgery is highly recommended with class I surgical indication -- Mitral valve surgery discussion with Dr. Diamond on 01/23/2024 4. Nonrheumatic mitral valve regurgitation - ICD9: 424.0, ICD10: I34.0 5. BALDERAS (dyspnea on exertion) - ICD9: 786.09, ICD10: R06.09 6. Mitral valve prolapse - ICD9: 424.0, ICD10: I34.1 Victor Hugo Christian DO Resident [facility] STAFF PHYSICIAN NOTE OF PERSONAL INVOLVEMENT IN CARE Mr. Melo has NYHA III symptoms of dyspnea and fatigue due to severe mitral regurgitation related to prolapse and restricted posterior leaflet. He has longstanding AF issues. He has a class I indication for proceeding to proposed mitral valve surgery with Dr. Diamond. If Mr. Melo chooses to have follow-up at [facility], I would be happy to see him. I have reviewed the documentation obtained and documented by the Resident and I have personally performed a face to face assessment of the patient and have personally participated in the vo components of the visit which includes medical decision making. I have discussed the case and management of the patient's care. STAFF PHYSICIAN: Moiz Koenig MD documented in this encounter [facility] 01-19-2024 Note [facility] 01-19-2024 History of Presen t illness Narrative Radiology Service Progress Note DATE OF SERVICE: January 19, 2024 TIME: 10:02 AM PATIENT WEIGHT: 313LBS PATIENT IDENTITY VERIFICATION COMPLETED USING TWO (2) STANDARD IDENTIFIERS: Name and Date of confirmed by patient verbally and Name and Date of confirmed by identification band. FALL SCREENING: Has the patient had 2 falls in the last year or 1 fall with injury or currently using an Ambulatory Assistive Device (Walker, Cane, Wheelchair, Crutches, etc.)? No PATIENT GENDER DATA: Male ALLERGIES: Reviewed and unchanged CONTRAST ALLERGY: No EXAM: CT -CONTRAST INDUCED NEPHROPATHY RISK FACTORS: Patient age > 60 years CREATININE: Creatinine (POCT) Date Value Ref Range Status 01/19/2024 1.20 0.7 - 1.4 mg/dL Final eGFR (POCT) Date Value Ref Range Status 01/19/2024 >60 mL/min/1.73 m2 Final P.O.C.T. RESULTS: POC done: Yes, See Lab Tab January 19, 2024 TREATMENT: No Hydration needed. IV SITE: Ambulatory: A peripheral IV was started in the Right antecubital site with a Angio cath: 20 gauge. and A Saline lock was inserted per protocol IV SITE APPEARANCE: Clean,Dry and Intact SIGNATURE: Dejah Alberts RN PATIENT NAME: Tre Melo DATE: January 19, 2024 TIME: 10:02 AM Radiology Service Progress Note PATIENT NAME: Tre Melo DATE OF SERVICE: January 19, 2024 TIME: 10:20 AM PATIENT IDENTITY VERIFICATION COMPLETED USING TWO (2) IDENTIFIERS: Name and Date of confirmed by patient verbally. FALL SCREENING: Has the patient had 2 falls in the last year or 1 fall with injury or currently using an Ambulatory Assistive Device (Walker, Cane, Wheelchair, Crutches, etc.)? No PATIENT GENDER DATA: Male PATIENT RELEVANT IMPLANT DATA REVIEWED: Yes PATIENT PRESENTS WITH AN IMPLANTABLE OR ATTACHED CLEAN UP SUPERVISOR: No RADIOLOGY DEPARTMENT: CT; Exam(s) Completed: Cardiac PERIPHERAL IV DATA: Site assessment: Clean,Dry and Intact, Site disposition Discontinued SIGNED BY: RT Ilene(R) January 19, 2024 10:20 AM documented in this encounter [facility] 01-19-2024 Note [facility] 01-19-2024 Note [facility] 01-19-2024 History of Presen t illness Narrative Radiology Service Progress Note PATIENT NAME: Tre Melo DATE OF SERVICE: January 19, 2024 TIME: 8:50 AM PATIENT IDENTITY VERIFICATION COMPLETED USING TWO (2) IDENTIFIERS: Name and Date of confirmed by patient verbally. FALL SCREENING: Has the patient had 2 falls in the last year or 1 fall with injury or currently using an Ambulatory Assistive Device (Walker, Cane, Wheelchair, Crutches, etc.)? No PATIENT GENDER DATA: Male PATIENT RELEVANT IMPLANT DATA REVIEWED: Not Applicable PATIENT PRESENTS WITH AN IMPLANTABLE OR ATTACHED CLEAN UP SUPERVISOR: No RADIOLOGY DEPARTMENT: General X-ray: Exam(s) Completed: Chest X-Ray PERIPHERAL IV DATA: Not applicable SIGNED BY: RT George(R) January 19, 2024 8:50 AM documented in this encounter [facility] 01-19-2024 Note [facility] 12-08-2023 Telephone encounter Note OPD 01.18, Lobo held . @ 1200, [facility] 01.22. Please send schedule + Dental Clearance Form- FedEx. MVr +/- MAZE ?Robot (2) Discussed with Mr. Melo the details regarding surgery scheduled with Dr. Diamond on 01.22. We reviewed the requirement for Dental Clearance Form and provided instructions for the last dose date of Xarelto, Jardiance, and any other anti-coagulants, vitamins, supplements, minerals, herbal products, or NSAID's should be on 01.16. Africa Wang RN December 08, 2023 12:10 PM Cardiac Surgery PreOp Checklist Patient Name: Tre Melo OR Surgery Date: 01.23.2024 [facility] Appt. Date: 01.22.2024 Primary Care Provider: No primary care provider on file. Definition Comments Diabetes/Insulin Pump A1-c and Endo consult (need for pump pt) n/a Hypothyroid/thyroid nodules TSH/US of thyroid if new nodule n/a Stroke (CVA) Neurology consult n/a Dysphagia, stricture w/no recent dilation, Mc's Esophagus GI consult n/a Von Willebrand/thrombocytopenia/ Blood... Hematology consult n/a Abnormal labs from outside Place any necessary consults n/a Cardiac Cath Correct birthday/include all images/moving if outside cath not ordered- done outside: [facility] [employer] 11.21.2023 Redo [facility]/Robotic surgery/radiation to chest CT or CTA/if outside CT will need in-house CXR, Cardiac MRI ordered Mechanical valve Admit for Heparin/Lovenox bridge n/a Female <50 y/o HCG n/a Heparin allergy hx of HIT Vascular Medicine consult n/a Nickel/Metal allergy Dermatology consult n/a Breast implants/Robotic candidates Plastic Surgery consult n/a Urinary strictures Urology consult/Urology consult to OR n/a All stimulators/spinal stimulator Type of stimulator n/a PPM/AICD Device check ordered Valve/TAVR/TEVAR/Myectomy/ascend ing aorta Dental clearance/Dental Consult at [facility] discussed CABG surgery with previous CABG/varicose vein/vein stripping Leg vein mapping n/a LMT disease > 30% or Carotid Bruits Carotid ultrasound n/a Descending Aneurysm/TEVAR/TAA Pre-admit/hydration/spinal drain to be placed: IR/OR/Not Needed n/a Dialysis patient IHD day prior to OHS n/a CABG with no ECHO results Discussion w/surgeon results for dental clearance: preop/postop n/a Advanced Directives Instructions given to patient n/a FMLA Forward to AA n/a Test/Consult not needed Communicate in Epic or Access n/a Record of decreased PFTs, known lung disease Any pulmonary consult n/a Pulmonary embolectomy Needs US/Duplex BLE, VQ scan RHC, possible LHC, Pulmonary and/or Vascular consult n/a Abnormal CT All>1cm if further workup/consult needed n/a CC-Bio Repostitory Notification of packet and general knowledge given to pt n/a [facility] 12-08-2023 Miscellaneous Notes OPD ., Lobo held 9.30 @ 1200, [facility] 10.. Please send schedule + Dental Clearance Form- [employer]Ex. MVr +/- MAZE ?Robot (2) Discussed with Mr. Melo the details regarding surgery scheduled with Dr. Diamond on 01.22. We reviewed the requirement for Dental Clearance Form and provided instructions for the last dose date of Xarelto, Jardiance, and any other anti-coagulants, vitamins, supplements, minerals, herbal products, or NSAID's should be on 01.16. Africa Wang RN December 08, 2023 12:10 PM Cardiac Surgery PreOp Checklist Patient Name: Tre Melo OR Surgery Date: 01.23.2024 [facility] Appt. Date: 01.22.2024 Primary Care Provider: No primary care provider on file. Definition Comments Diabetes/Insulin Pump A1-c and Endo consult (need for pump pt) n/a Hypothyroid/thyroid nodules TSH/US of thyroid if new nodule n/a Stroke (CVA) Neurology consult n/a Dysphagia, stricture w/no recent dilation, Mc's Esophagus GI consult n/a Von Willebrand/thrombocytopenia/ Blood... Hematology consult n/a Abnormal labs from outside Place any necessary consults n/a Cardiac Cath Correct birthday/include all images/moving if outside cath not ordered- done outside: [facility] 11.21.2023 Redo [facility]/Robotic surgery/radiation to chest CT or CTA/if outside CT will need in-house CXR, Cardiac MRI ordered Mechanical valve Admit for Heparin/Lovenox bridge n/a Female <50 y/o HCG n/a Heparin allergy hx of HIT Vascular Medicine consult n/a Nickel/Metal allergy Dermatology consult n/a Breast implants/Robotic candidates Plastic Surgery consult n/a Urinary strictures Urology consult/Urology consult to OR n/a All stimulators/spinal stimulator Type of stimulator n/a PPM/AICD Device check ordered Valve/TAVR/TEVAR/Myectomy/ascend ing aorta Dental clearance/Dental Consult at [facility] discussed CABG surgery with previous CABG/varicose vein/vein stripping Leg vein mapping n/a LMT disease > 30% or Carotid Bruits Carotid ultrasound n/a Descending Aneurysm/TEVAR/TAA Pre-admit/hydration/spinal drain to be placed: IR/OR/Not Needed n/a Dialysis patient IHD day prior to [facility] n/a CABG with no ECHO results Discussion w/surgeon results for dental clearance: preop/postop n/a Advanced Directives Instructions given to patient n/a FMLA Forward to AA n/a Test/Consult not needed Communicate in Epic or Access n/a Record of decreased PFTs, known lung disease Any pulmonary consult n/a Pulmonary embolectomy Needs US/Duplex BLE, VQ scan RHC, possible LHC, Pulmonary and/or Vascular consult n/a Abnormal CT All>1cm if further workup/consult needed n/a [employer] Repostitory Notification of packet and general knowledge given to pt n/a To AM for review: moderate-severe MR/mild posterior MAC, mild TR, A-Fib/Flutter (ablations 2005, 2017, 2018) Records in Epic, Images on Syng[employer]. To NPM Patient was referred to Dr. Diamond by Dr. Wray for MVR. documented in this encounter [facility] 12-06-2023 Telephone encounter Note To AM for review: moderate-severe MR/mild posterior MAC, mild TR, A-Fib/Flutter (ablations 2005, 2017, 2018) [facility] 12-06-2023 Telephone encounter Note Records in Epic, Images on Sy[employer]. To NPM [facility] 12-06-2023 Telephone encounter Note Patient was referred to Dr. Diamond by Dr. Wray for MVR. [facility] Evaluation note Diagnosis 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 Unspecified disorders of arteries and arterioles Pre-operative cardiovascular examination Atrial fibrillation, unspecified type (HCC) Mitral valve disorder Mitral valve disorders Disorder of artery or arteriole (HCC) Unspecified disorders of arteries and arterioles Pre-operative cardiovascular examination Atrial fibrillation, unspecified type (HCC) Mitral valve disorder Mitral valve disorders [facility] Pre-operative cardiovascular examination- Primary Disorder of artery or arteriole (HCC) Unspecified disorders of arteries and arterioles Atrial fibrillation, unspecified type (HCC) Mitral valve disorder Mitral valve disorders Disorder of artery or arteriole (HCC) Unspecified disorders of arteries and arterioles Pre-operative cardiovascular examination Atrial fibrillation, unspecified type (HCC) Mitral valve disorder Mitral valve disorders [facility] Diagnosis Pre-operative cardiovascular examination- Primary Disorder of artery or arteriole (HCC) Unspecified disorders of arteries and arterioles Atrial fibrillation, unspecified type (HCC) Mitral valve disorder Mitral valve disorders Disorder of artery or arteriole (HCC) Unspecified disorders of arteries and arterioles Pre-operative cardiovascular examination Atrial fibrillation, unspecified type (HCC) Mitral valve disorder Mitral valve disorders [facility]* Diagnosis Pre-op exam- Primary Preoperative examination, unspecified Disorder of artery or arteriole (HCC) Unspecified disorders of arteries and arterioles Pre-operative cardiovascular examination Atrial fibrillation, unspecified type (HCC) Mitral valve disorder Mitral valve disorders Nonrheumatic mitral valve regurgitation BALDERAS (dyspnea on exertion) Other dyspnea and respiratory abnormality PAF (paroxysmal atrial fibrillation) (HCC) Atrial fibrillation Mitral valve prolapse Mitral valve disorders Disorder of artery or arteriole (HCC) Unspecified disorders of arteries and arterioles Pre-operative cardiovascular examination Atrial fibrillation, unspecified type (HCC) Mitral valve disorder Mitral valve disorders documented in this encounter [facility]* Diagnosis Disorder of artery or arteriole (HCC) Unspecified disorders of arteries and arterioles Pre-operative cardiovascular examination Atrial fibrillation, unspecified type (HCC) Mitral valve disorder Mitral valve disorders Disorder of artery or arteriole (HCC) Unspecified disorders of arteries and arterioles Pre-operative cardiovascular examination Atrial fibrillation, unspecified type (HCC) Mitral valve disorder Mitral valve disorders documented [facility]* Diagnosis Pacemaker reprogramming/check Fitting and adjustment of cardiac pacemaker Disorder of artery or arteriole (HCC) Unspecified disorders of arteries and arterioles Pre-operative cardiovascular examination Atrial fibrillation, unspecified type (HCC) Mitral valve disorder Mitral valve disorders documented in this encounter [facility] note* Diagnosis Disorder of artery or arteriole (HCC) Unspecified disorders of arteries and arterioles Pre-operative cardiovascular examination Atrial fibrillation, unspecified type (HCC) Mitral valve disorder Mitral valve disorders Disorder of artery or arteriole (HCC) Unspecified disorders of arteries and arterioles Pre-operative cardiovascular examination Atrial fibrillation, unspecified type (HCC) Mitral valve disorder Mitral valve disorders documented in this encounter [facility] note* Diagnosis Encounter for preoperative anesthesiology assessment for cardiac surgery- Primary Disorder of artery or arteriole (HCC) Unspecified disorders of arteries and arterioles Pre-operative cardiovascular examination Atrial fibrillation, unspecified type (HCC) Mitral valve disorder Mitral valve disorders documented in this encounter [facility] note* Diagnosis Mitral valve insufficiency, unspecified etiology- Primary Disorder of artery or arteriole (HCC) Unspecified disorders of arteries and arterioles Pre-operative cardiovascular examination Atrial fibrillation, unspecified type (HCC) Mitral valve disorder Mitral valve disorders documented in this encounter [facility] note* Diagnosis Disorder of artery or arteriole (HCC) Unspecified disorders of arteries and arterioles Pre-operative cardiovascular examination Atrial fibrillation, unspecified type (HCC) Mitral valve disorder Mitral valve disorders Disorder of artery or arteriole (HCC) Unspecified disorders of arteries and arterioles Pre-operative cardiovascular examination Atrial fibrillation, unspecified type (HCC) Mitral valve disorder Mitral valve disorders documented in this encounter [facility] note* Diagnosis S/P MVR (mitral valve repair)- Primary Other postprocedural status S/P TVR (tricuspid valve repair) Other postprocedural status S/P Maze operation for atrial fibrillation Other postprocedural status Cardiac pacemaker in situ documented in this encounter [facility] note* Diagnosis Surgery follow-up Follow-up examination, following unspecified surgery documented in this encounter [facility] for referral (narrative)* Outpatient Procedure (Routine) - New Request Specialty Diagnoses / Procedures Referred By Contac t Referred To Contact [facility] Diagnoses Disorder of artery or arteriole (HCC) Pre-operative cardiovascular examination Atrial fibrillation, unspecified type (HCC) Mitral valve disorder Procedures LUNG DIFFUSION CAPACITY (DLCO) DIFFUSING CAPACITY Phillip Diamond MD [address] [place] [id number] [facility] [place] [address] [place] [address] Referral ID Status Reason Start Date Expiration Date Visits Requested Visits Authorized [id number] New Request Auto-Generat ed Referral 12/08/2023 01/06/2025 1 1 * Outpatient Procedure (Routine) - New Request Specialty Diagnoses / Procedures Referred By Contac t Referred To [facility] Diagnoses Disorder of artery or arteriole (HCC) Pre-operative cardiovascular examination Atrial fibrillation, unspecified type (HCC) Mitral valve disorder Procedures SPIROMETRY BASELINE ONLY SPMTRY W/VC EXPIRATORY ABELARDO W/WO MXML VOL VNTJ Phillip Diamond MD [address] [place] [address] [facility] [place] [address] [place] [address] Referral ID Status Reason Start Date Expiration Date Visits Requested Visits Authorized [id number] New Request Auto-Generat ed Referral 12/08/2023 01/06/2025 1 1 * MRI/CT (Routine) - New Request Specialty Diagnoses / Procedures Referred By Contac t Referred To Contact CT IMAGING Diagnoses Disorder of artery or arteriole (HCC) Pre-operative cardiovascular examination Atrial fibrillation, unspecified type (HCC) Mitral valve disorder Procedures CTA CHEST/ABD/PEL (GATED) W IVCON CT ANGIOGRAPHY CHEST W/CONTRAST/NONCONTRAST CT ANGIO ABD&PLVIS CNTRST MTRL W/WO CNTRST IMGES Phillip Diamond MD [address] [place] [address] Ct Imaging [place] [address] Referral ID Status Reason Start Date Expiration Date Visits Requested Visits Authorized [id number] New Request Auto-Generat ed Referral 12/08/2023 01/06/2025 1 1 * Outpatient Procedure (Routine) - New Request Specialty Diagnoses / Procedures Referred By Contac t Referred To Contact [facility] Diagnoses Disorder of artery or arteriole (HCC) Pre-operative cardiovascular examination Atrial fibrillation, unspecified type (HCC) Mitral valve disorder Procedures ECHO ECHO TTHRC R-T 2D W/WOM-MODE COMPL SPEC&COLR D Phillip Diamond MD [address] [place] [address] [facility] [place] [address] [place] [address] Referral ID Status Reason Start Date Expiration Date Visits Requested Visits Authorized [id number] New Request Auto-Generat ed Referral 12/08/2023 12/07/2024 1 1 * Outpatient Procedure (Routine) - New Request Specialty Diagnoses / Procedures Referred By Dwayne t Referred To [facility] Diagnoses Disorder of artery or arteriole (HCC) Pre-operative cardiovascular examination Atrial fibrillation, unspecified type (HCC) Mitral valve disorder Procedures ECG COMPLETE ECG ROUTINE ECG W/LEAST 12 LDS W/I&R Phlilip Diamond MD [address] [place] [address] [facility] [place][Note 2] [place] [address] Referral ID Status Reason Start Date Expiration Date Visits Requested Visits Authorized [id number] New Request Auto-Generat ed Referral 12/08/2023 12/07/2024 1 1 * Consult, Test, Treat (Routine) - Authorized Specialty Diagnoses / Procedures Referred By Dwayne rush Referred To Contact Cardiac Surg Diagnoses Disorder of artery or arteriole (HCC) Pre-operative cardiovascular examination Atrial fibrillation, unspecified type (HCC) Mitral valve disorder Procedures CARDIOTHORACIC PREOP EVALUATION OFFICE/OUTPATIENT [facility] 60 MINUTES Phillip Diamond MD [address] [place] [address] Referral ID Status Reason Start Date Expiration Date Visits Requested Visits Authorized [id number] Authorized PCP Requested Referral 12/08/2023 12/07/2024 1 1 * Consult, Test, Treat (Routine) - Authorized Specialty Diagnoses / Procedures Referred By Dwayne rush Referred To Contact Cardiology Diagnoses Disorder of artery or arteriole (HCC) Pre-operative cardiovascular examination Atrial fibrillation, unspecified type (HCC) Mitral valve disorder Procedures CONSULT TO CARDIOLOGY OFFICE/OUTPATIENT [facility] 60 MINUTES Phillip Diamond MD [address] [place] [address] Referral ID Status Reason Start Date Expiration Date Visits Requested Visits Authorized [id number] Authorized PCP Requested Referral 12/08/2023 12/07/2024 1 1 [facility] for referral (narrative)* Outpatient Procedure (Routine) - Denied Specialty Diagnoses / Procedures Referred By Contac t Referred To Contact [facility] [place] Diagnoses Pacemaker reprogramming/check Procedures CARDIAC IMPLANTABLE DEVICE CHECK [address] [address] [facility] [address] [address] Referral ID Status Reason Start Date Expiration Date V isits Requested Visits Authorized [id number] Denied Auto-Generat ed Referral Patient Cleared - Admin/Chairm an/Director advise to proceed or did not respond 12/12/2023 12/11/2024 1 0 * Outpatient Procedure (Routine) - Denied Specialty Diagnoses / Procedures Referred By Contac t Referred To Contact [facility] Diagnoses Pacemaker reprogramming/check Procedures CARDIAC IMPLANTABLE DEVICE CHECK [address] [address] [facility] [place][Note 2] Vascular [address] [address] Referral ID Status Reason Start Date Expiration Date V isits Requested Visits Authorized [id number] Denied Auto-Generat ed Referral Patient Cleared - Admin/Chairm an/Director advise to proceed or did not respond 12/12/2023 12/11/2024 1 0 [facility] for visit Narrative* Outpatient Procedure (Routine) - Denied Specialty Diagnoses / Procedures Referred By Contac t Referred To Contact [facility] Diagnoses Pacemaker reprogramming/check Procedures CARDIAC IMPLANTABLE DEVICE CHECK [address] [address] [facility] [place]Note 2] Vascular [address] [address] Referral ID Status Reason Start Date Expiration Date V isits Requested Visits Authorized [id number] Denied Auto-Generat ed Referral Patient Cleared - Admin/Chairm an/Director advise to proceed or did not respond 12/12/2023 12/11/2024 1 0 [facility] Summary Purpose Family History No Family History Records FoundNo Family History Records FoundNo Family History Records FoundNo Family History Records FoundNo Family History Records FoundNo Family History Records Found Advance Directives No Advanced Directives Records FoundDocuments on File Type Date Recorded 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 Advance Directive(s) 01/23/2024 5:09 AM Date Activated Date Inactivated Comments 01/24/2024 1:30 PM Question Answer Comments Full Code Order Discussed With: Discussion Not M edically Appropriate Date Activated Date Inactivated Comments 01/24/2024 1:30 PM 01/29/2024 9:18 PM Documents on File Type Date Recorded 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 Advance Directive(s) 01/23/2024 5:09 AM Date Activated Date Inactivated Comments 01/24/2024 1:30 PM 01/29/2024 9:18 PM Question Answer Comments Full Code Order Discussed With: Discussion Not M edically Appropriate Reason for Referral Specialty Diagnoses / Procedures Referred By Contac t Referred To Contact [facility] [place] Procedures CARDIOVASCULAR MEDICINE OP FOLLOW UP APPT ORDER Moiz Koenig MD [address] [place] [address] [place] [address] Referral ID Status Reason Start Date Expiration Date Visits Requested Visits Authorized [id number] Ref Not Required PCP Requested Referral 01/19/2024 01/18/2025 1 1 Specialty Diagnoses / Procedures Referred By Contac t Referred To Contact CT IMAGING Diagnoses Disorder of artery or arteriole (HCC) Pre-operative cardiovascular examination Atrial fibrillation, unspecified type (HCC) Mitral valve disorder Procedures CTA CHEST/ABD/PEL (GATED) W IVCON CT ANGIOGRAPHY CHEST W/CONTRAST/NONCONTRAST CT ANGIO ABD&PLVIS CNTRST MTRL W/WO CNTRST Phillip Rayo MD [address] [place] [address] Ct Imaging [place] [address] Referral ID Status Reason Start Date Expiration Date V isits Requested Visits Authorized [id number] Closed Auto-Generate d Referral 12/08/2023 01/06/2025 1 1 Additional Source Comments (unrecognized sect ion and content) No Status Records FoundNo Status Records FoundNo Status Records FoundNo Status Records FoundNo Status Records FoundNo Status Records Found INFORMATION SOURCE (unrecogn ized section and content) DATE CREATED AUTHOR 10/18/2017 Fab[facility] DATE CREATED AUTHOR AUTHOR'S ORGANIZ ATION [facility] DATE CREATED AUTHOR AUTHOR'S ORGANIZ ATION 05/23/2021 [facility] DATE CREATED AUTHOR AUTHOR'S ORGANIZ ATION 10/29/2021 Fabrice [facility] DATE CREATED AUTHOR AUTHOR'S ORGANIZ ATION 07/13/2023 [facility] DATE CREATED AUTHOR AUTHOR'S ORGANIZ ATION 02/13/2024 [facility] Source Comments (unrecognize d section and content) In the event this informatio n is protected by the Federal Confidentiality of Alcohol and Drug Abuse Patient Records regulations: The Federal rules restrict any use of the information to criminally investigate or prosecute any alcohol or drug abuse patient.[facility] the event this information is protected by the Federal Confidentiality of Alcohol and Drug Abuse Patient Records regulations: The Federal rules restrict any use of the information to criminally investigate or prosecute any alcohol or drug abuse patient.[facility] the event this information is protected by the Federal Confidentiality of Alcohol and Drug Abuse Patient Records regulations: The Federal rules restrict any use of the information to criminally investigate or prosecute any alcohol or drug abuse patient.[facility] the event this information is protected by the Federal Confidentiality of Alcohol and Drug Abuse Patient Records regulations: The Federal rules restrict any use of the information to criminally investigate or prosecute any alcohol or drug abuse patient.[facility] the event this information is protected by the Federal Confidentiality of Alcohol and Drug Abuse Patient Records regulations: The Federal rules restrict any use of the information to criminally investigate or prosecute any alcohol or drug abuse patient.[facility] CenterIn the event this information is protected by the Federal Confidentiality of Alcohol and Drug Abuse Patient Records regulations: The Federal rules restrict any use of the information to criminally investigate or prosecute any alcohol or drug abuse patient.[facility] CenterIn the event this information is protected by the Federal Confidentiality of Alcohol and Drug Abuse Patient Records regulations: The Federal rules restrict any use of the information to criminally investigate or prosecute any alcohol or drug abuse patient.[facility] CenterIn the event this information is protected by the Federal Confidentiality of Alcohol and Drug Abuse Patient Records regulations: The Federal rules restrict any use of the information to criminally investigate or prosecute any alcohol or drug abuse patient.[facility] CenterIn the event this information is protected by the Federal Confidentiality of Alcohol and Drug Abuse Patient Records regulations: The Federal rules restrict any use of the information to criminally investigate or prosecute any alcohol or drug abuse patient.[facility] CenterIn the event this information is protected by the Federal Confidentiality of Alcohol and Drug Abuse Patient Records regulations: The Federal rules restrict any use of the information to criminally investigate or prosecute any alcohol or drug abuse patient.[facility] CenterIn the event this information is protected by the Federal Confidentiality of Alcohol and Drug Abuse Patient Records regulations: The Federal rules restrict any use of the information to criminally investigate or prosecute any alcohol or drug abuse patient.[facility] CenterIn the event this information is protected by the Federal Confidentiality of Alcohol and Drug Abuse Patient Records regulations: The Federal rules restrict any use of the information to criminally investigate or prosecute any alcohol or drug abuse patient.[facility] CenterIn the event this information is protected by the Federal Confidentiality of Alcohol and Drug Abuse Patient Records regulations: The Federal rules restrict any use of the information to criminally investigate or prosecute any alcohol or drug abuse patient.[facility] CenterIn the event this information is protected by the Federal Confidentiality of Alcohol and Drug Abuse Patient Records regulations: The Federal rules restrict any use of the information to criminally investigate or prosecute any alcohol or drug abuse patient.[facility] CenterIn the event this information is protected by the Federal Confidentiality of Alcohol and Drug Abuse Patient Records regulations: The Federal rules restrict any use of the information to criminally investigate or prosecute any alcohol or drug abuse patient.[facility] CenterIn the event this information is protected by the Federal Confidentiality of Alcohol and Drug Abuse Patient Records regulations: The Federal rules restrict any use of the information to criminally investigate or prosecute any alcohol or drug abuse patient.[facility] CenterIn the event this information is protected by the Federal Confidentiality of Alcohol and Drug Abuse Patient Records regulations: The Federal rules restrict any use of the information to criminally investigate or prosecute any alcohol or drug abuse patient.[facility] Reason for Visit (unrecogniz ed section and content) Reason Comments Referral Information Pre-Op CTHO Consult Cardiac Preop Checklist Reason Comments Spirometry Specialty Diagnoses / Procedures Referred By Contac t Referred To Contact [facility] Diagnoses Disorder of artery or arteriole (HCC) Pre-operative cardiovascular examination Atrial fibrillation, unspecified type (HCC) Mitral valve disorder Procedures LUNG DIFFUSION CAPACITY (DLCO) DIFFUSING CAPACITY Phillip Diamond MD [address] [phone] [facility] [place] [address] [place] [address] Referral ID Status Reason Start Date Expiration Date V isits Requested Visits Authorized [id number] Closed Auto-Generate d Referral 12/08/2023 01/06/2025 1 1 Specialty Diagnoses / Procedures Referred By Contac t Referred To Contact [facility] Diagnoses Disorder of artery or arteriole (HCC) Pre-operative cardiovascular examination Atrial fibrillation, unspecified type (HCC) Mitral valve disorder Procedures SPIROMETRY BASELINE ONLY SPMTRY W/VC EXPIRATORY ABELARDO W/WO MXML VOL VNTJ Phillip Diamond MD [address] [place] [address] [facility] [place] [address] [place] [address] Referral ID Status Reason Start Date Expiration Date V isits Requested Visits Authorized [id number] Closed Auto-Generate d Referral 12/08/2023 01/06/2025 1 1 Specialty Diagnoses / Procedures Referred By Contac t Referred To Contact Cardiology Diagnoses Disorder of artery or arteriole (HCC) Pre-operative cardiovascular examination Atrial fibrillation, unspecified type (HCC) Mitral valve disorder Procedures CONSULT TO CARDIOLOGY OFFICE/OUTPATIENT [facility] 60 MINUTES Phillip Diamond MD [address] [place] [address] Referral ID Status Reason Start Date Expiration Date V isits Requested Visits Authorized [id number] Closed PCP Requested Referral 12/08/2023 12/07/2024 [address] Specialty Diagnoses / Procedures Referred By Contac t Referred To Contact CT IMAGING Diagnoses Disorder of artery or arteriole (HCC) Pre-operative cardiovascular examination Atrial fibrillation, unspecified type (HCC) Mitral valve disorder Procedures CTA CHEST/ABD/PEL (GATED) W IVCON CT ANGIOGRAPHY CHEST W/CONTRAST/NONCONTRAST CT ANGIO ABD&PLVIS CNTRST MTRL W/WO CNTRST IMGES Phillip Diamond MD [address] [place] [address] Ct Imaging [place] [address] Referral ID Status Reason Start Date Expiration Date V isits Requested Visits Authorized [id number] Closed Auto-Generate d Referral 12/08/2023 01/06/2025 1 1 Reason Comments Radio Main J1 Specialty Diagnoses / Procedures Referred By Contact Referred To Contact Anesthesiology / CARDIAC SURGERY Diagnoses MVr +/- MAZE ?[facility] 01/22 AMG Procedures PRE OP Phillip Diamond MD [address] [place] [address] [facility] [address] [place] [address] Referral ID Status Reason Start Date Expiration Date Visits Re quested Visits Authorized [id number] Closed 01/22/2024 04/23/2024 1 1 Reason Comments Patient Education Specialty Diagnoses / Procedures Referred By Carlac t Referred To Contact Cardiac Surg Diagnoses Disorder of artery or arteriole (HCC) Pre-operative cardiovascular examination Atrial fibrillation, unspecified type (HCC) Mitral valve disorder Procedures CARDIOTHORACIC PREOP EVALUATION OFFICE/OUTPATIENT [facility] 60 MINUTES Phillip Diamond MD [address] [phone] Referral ID Status Reason Start Date Expiration Date V isits Requested Visits Authorized [id number] Closed PCP Requested Referral 12/08/2023 12/07/2024 1 1 Specialty Diagnoses / Procedures Referred By Dwayne t Referred To Contact [facility] Diagnoses Disorder of artery or arteriole (HCC) Pre-operative cardiovascular examination Atrial fibrillation, unspecified type (HCC) Mitral valve disorder Disorder of artery or arteriole (HCC) [I77.9] Pre-operative cardiovascular examination [Z01.810] Atrial fibrillation, unspecified type (HCC) [I48.91] Mitral valve disorder [I05.9] Procedures VLVP MITRAL VALVE W/CARD BYP W/PROSTC RING ABLATION & RCNSTJ ATRIA EXTNSV W/BYPASS VALVULOPLASTY MITRAL W/ RING AND BYPASS FULL MAZE W/ CARDIOPULMONARY BYPASS [facility] [address] [id number] Referral ID Status Reason Start Date Expiration Date Visits Re quested Visits Authorized [id number] 1 1 Reason Comments Follow Up Phone Call RC follow up call a ll clear. Reason Comments Post Op Care Teams (unrecognized sec tion and content) Warehouse Operations Associate Relationship Specialty Start Date End Date Phillip Diamond MD [address] [place] [address] Surgeon Cardiac Surg 12/06/23 Omer Wray MD [address] [place] [phone] Cardiology 12/06/23 Warehouse Operations Associate Relationship Specialty Start Date End Date Omer Wray MD [address] [phone]- PCP - General Cardiology 01/15/24 Phillip Diamond MD [address] [place] [address] Surgeon Cardiac Surg 12/06/23 Omer Wray MD [address] [place] [phone] Cardiology 12/06/23 Moiz Koenig MD [address] [place] [address] Primary Staff Physician Cardiology 01/19/24 Warehouse Operations Associate Relationship Specialty Start Date End Date Omer Wray MD [address] [phone] PCP - General Cardiology 01/15/24 Phillip Diamond MD [address] [place] [address] Surgeon Cardiac Surg 12/06/23 Omer Wray MD [address] [place] [address] Cardiology 12/06/23 Moiz Koenig MD [address] [place] [address] Primary Staff Physician Cardiology 01/19/24 Warehouse Operations Associate Relationship Specialty Start Date End Date Omer Wray MD [address] [address] PCP - General Cardiology 01/15/24 Phillip Diamond MD [address] [place] [address] Surgeon Cardiac Surg 12/06/23 Omer Wray MD [address] [place] [phone] Cardiology 12/06/23 Moiz Koenig MD [address] [place] [address] Primary Staff Physician Cardiology 01/19/24 Warehouse Operations Associate Relationship Specialty Start Date End Date Omer Wray MD [address] [address] PCP - General Cardiology 01/15/24 Phillip Diamond MD [address] [place] [address] Surgeon Cardiac Surg 12/06/23 Omer Wray MD [address] [place] [phone] Cardiology 12/06/23 Moiz Koenig MD [address] [place], [place] [phone] Primary Staff Physician Cardiology 01/19/24 Warehouse Operations Associate Relationship Specialty Start Date End Date Omer Wray MD [address] [phone]- PCP - General Cardiology 01/15/24 Phillip Diamond MD [address] [place] [address] Surgeon Cardiac Surg 12/06/23 Omer Wray MD [address] [place] [phone] Cardiology 12/06/23 Moiz Koenig MD [address] [place] [address] Primary Staff Physician Cardiology 01/19/24 Warehouse Operations Associate Relationship Specialty Start Date End Date Omer Wray MD [address] [address] PCP - General Cardiology 01/15/24 Phillip Diamond MD [address] [place], [place] [phone] Surgeon Cardiac Surg 12/06/23 Omer Wray MD [address] [place] [phone] 637 Cardiology 12/06/23 Moiz Koenig MD [address] [place] [address] Primary Staff Physician Cardiology 01/19/24 Warehouse Operations Associate Relationship Specialty Start Date End Date Omer Wray MD [address] [address] PCP - General Cardiology 01/15/24 Phillip Diamond MD [address] [place] [address] Surgeon Cardiac Surg 12/06/23 Omer Wray MD [address] [place] [address] Cardiology 12/06/23 Moiz Koenig MD [address] [place] [address] Primary Staff Physician Cardiology 01/19/24 Warehouse Operations Associate Relationship Specialty Start Date End Date Omer Wray MD [address] [address] PCP - General Cardiology 01/15/24 Phillip Diamond MD [address] [place] [address] Surgeon Cardiac Surg 12/06/23 Omer Wray MD [address] [place] [address] Cardiology 12/06/23 Moiz Koenig MD [address] [place] [address] Primary Staff Physician Cardiology 01/19/24 Warehouse Operations Associate Relationship Specialty Start Date End Date Omer Wray MD [address] [place] [address] PCP - General Cardiology 01/15/24 Phillip Diamond MD [address] [place] [address] Surgeon Cardiac Surg 12/06/23 Omer Wray MD [address] [place] [address] Cardiology 12/06/23 Moiz Koenig MD [address] [place] [address] Primary Staff Physician Cardiology 01/19/24 Warehouse Operations Associate Relationship Specialty Start Date End Date Omer Wray MD [address] [facility] [address] [place] [address] PCP - General Cardiology 01/15/24 Phillip Diamond MD [address] [place] [address] Surgeon Cardiac Surg 12/06/23 Omer Wray MD [address] [place] [address] Cardiology 12/06/23 Moiz Koenig MD [address] [place] [address] Primary Staff Physician Cardiology 01/19/24 Warehouse Operations Associate Relationship Specialty Start Date End Date Omer Wray MD [address] [phone]- PCP - General Cardiology 01/15/24 Phillip Diamond MD [address] [place] [address] Surgeon Cardiac Surg 12/06/23 Omer Wray MD [address] [place] [phone] Cardiology 12/06/23 Moiz Koenig MD [address] [place] [address] Primary Staff Physician Cardiology 01/19/24 Warehouse Operations Associate Relationship Specialty Start Date End Date Omer Wray MD [address] [phone]- PCP - General Cardiology 01/15/24 Phillip Diamond MD [address] [place] [address] Surgeon Cardiac Surg 12/06/23 Omer Wray MD [address] [place] [phone] Cardiology 12/06/23 Moiz Koenig MD [address] [phone] Primary Staff Physician Cardiology 01/19/24 Warehouse Operations Associate Relationship Specialty Start Date End Date Omer Wray MD [address] [phone]- PCP - General Cardiology 01/15/24 Phillip Diamond MD [address] [place] [address] Surgeon Cardiac Surg 12/06/23 Omer Wray MD [address] [place] [phone] Cardiology 12/06/23 Moiz Koenig MD [address] [phone] Primary Staff Physician Cardiology 01/19/24 Warehouse Operations Associate Relationship Specialty Start Date End Date Omer Wray MD [address] [phone]- PCP - General Cardiology 01/15/24 Phillip Diamond MD [address] [place] [address] Surgeon Cardiac Surg 12/06/23 Omer Wray MD [address] [place] [phone] Cardiology 12/06/23 Moiz Koenig MD [address] [place] [address] Primary Staff Physician Cardiology 01/19/24 Warehouse Operations Associate Relationship Specialty Start Date End Date Omer Wray MD [address] [phone] PCP - General Cardiology 01/15/24 Phillip Diamond MD [address] [place] [address] Surgeon Cardiac Surg 12/06/23 Omer Wray MD [address] [place] [address] Cardiology 12/06/23 Moiz Koenig MD [address] [place] [address] Primary Staff Physician Cardiology 01/19/24 FOR RECORDS PERTAINING TO PATIENTS WHO ARE OR HAVE BEEN ENROLLED IN A CHEMICAL DEPENDENCY/SUBSTANCEABUSE PROGRAM, SOME INFORMATION MAY BE OMITTED. This clinical summary was aggregated from multiple sources. Caution should be exercised in using it in the provision of clinical care. This summary normalizes information from multiple sources, and as a consequence, information in this document may materially change the coding, format and clinical context of patient data. In addition, data may be omitted in some cases. CLINICAL DECISIONS SHOULD BE BASED ON THE PRIMARY CLINICAL RECORDS. [facility]. provides no warranty or guarantee of the accuracy or completeness of information in this document.
[2024-02-14 11:18] LABS: Absolute Lymphocyte Count 1.37 X10^3/uL (0.83-4.51); Absolute Neutrophil Count 5.3 X10^3/uL (2.0-7.7); Basophil# 0.11 X10^3/uL; Basophil% 1.4 % (0-1); Eosinophil# 0.27 X10^3/uL; Eosinophils% 3.4 % (0-5); Hematocrit 32.7 % (40-54); Lymphocyte # 1.37 X10^3/ul (0.83-4.51); Lymphocyte % 17.3 % (19-41); Mean Corp Hgb Conc 30.6 g/dL (32-36); Mean Corpuscular Hgb 27.5 pg (27.0-32.0); Mean Corpuscular Volume 89.8 fL (80-94); Mean Platelet Vol. 9.1 fl (6.2-12.0); Monocyte% 10.1 % (0-10); NRBC Flagged by Analyzer 0 % (0-5); Neutrophil # 5.32 X10^3/uL (2.7-7.7); Neutrophil % 67.2 % (47-70); Platelet Count 362 K/mm3 (150-450); Red Blood Count 3.64 M/mm3 (4.6-6.2); White Blood Count 7.9 K/mm3 (4.4-11.0)
[2024-02-14 11:41] LABS: BNP,B-Type NATRIURETIC PEPTIDE 459.5 pg/mL (0-100)
[2024-02-14 11:43] LABS: AST(SGOT) 15 U/L (15-37); Alanine Aminotransfer ALT/SGPT 35 U/L (16-61); Albumin, Serum 3.4 g/dL (3.2-5.0); Alkaline Phosphatase 86 U/L (45-117); Anion Gap 2 (5-15); BUN 30 mg/dL (7-18); Calcium,Total 9.4 mg/dL (8.5-10.1); Chloride 105 mmol/L (98-107); Creatinine, Serum 1.11 mg/dL (0.70-1.30); EST Glomerular Filtration Rate 70 mL/min (>60); Est Glom Filt Rate - Afr Amer 85 mL/min (>60); Globulin 3.4 g/dL (2.2-4.2); Glucose 89 mg/dL (74-106); Magnesium 2.3 mg/dL (1.6-2.6); Potassium 4.1 mmol/L (3.5-5.1); Protein, Total 6.8 g/dL (6.4-8.2); Sodium Level 138 mmol/L (136-145)
== END | disposition home or self-care (01) ==
LOC: RAD 10:35
PROVIDERS: Referring Provider Nurse Practitioner Family; Visit Provider Nurse Practitioner Family
DX: R06.09 Other forms of dyspnea (principal); Z98.890 Other specified postprocedural states; Z86.79 Personal history of other diseases of the circulatory system
CPT/HCPCS: 36415; 71046; 80053; 83735; 83880; 85025

== ENCOUNTER → 2024-02-28 | Outpatient (CLI) | payer MEDICARE, BC, SELFPAY ==
[2024-02-28 08:08] VITALS: BP 107/61; PULSE 69; O2SAT 95
[2024-02-28 08:14] VITALS: BP 107/61
[2024-02-28 08:36] VITALS: BMI 42.8
[2024-02-28 09:15] VITALS: BMI 42.8
== END | disposition home or self-care (01) ==
LOC: CR 07:48
PROVIDERS: Referring Provider Internal Medicine Cardiovascular Disease; Visit Provider Internal Medicine Cardiovascular Disease
DX: Z98.890 Other specified postprocedural states (principal); I46.9 Cardiac arrest, cause unspecified; Z86.79 Personal history of other diseases of the circulatory system; Z95.818 Presence of other cardiac implants and grafts

== ENCOUNTER → 2024-03-01 | Outpatient (CLI) | payer MEDICARE, BC, SELFPAY ==
[2024-02-28 09:15] VITALS: BMI 42.8
[2024-03-01 11:06] LABS: Absolute Lymphocyte Count 1.63 X10^3/uL (0.83-4.51); Absolute Neutrophil Count 4.4 X10^3/uL (2.0-7.7); Basophil% 1.4 % (0-1); Eosinophil# 0.43 X10^3/uL; Eosinophils% 5.8 % (0-5); Hematocrit 33.2 % (40-54); Hemoglobin 10.1 g/dL (13.0-16.5); Lymphocyte # 1.63 X10^3/ul (0.83-4.51); Mean Corp Hgb Conc 30.4 g/dL (32-36); Mean Corpuscular Hgb 27.2 pg (27.0-32.0); Mean Corpuscular Volume 89.2 fL (80-94); Mean Platelet Vol. 10.4 fl (6.2-12.0); Monocyte# 0.85 X10^3/uL; Monocyte% 11.5 % (0-10); NRBC Flagged by Analyzer 0 % (0-5); Neutrophil # 4.36 X10^3/uL (2.7-7.7); Neutrophil % 58.9 % (47-70); Platelet Count 239 K/mm3 (150-450); RBC Distribution Width CV 14.4 % (11.6-14.6); RBC Distribution Width SD 46.4 fl (35.1-43.9); Red Blood Count 3.72 M/mm3 (4.6-6.2); White Blood Count 7.4 K/mm3 (4.4-11.0)
[2024-03-01 11:36] LABS: BNP,B-Type NATRIURETIC PEPTIDE 167.5 pg/mL (0-100)
[2024-03-01 11:47] LABS: ALB/GLOB Ratio 1.3 RATIO (0.9-2.4); AST(SGOT) 12 U/L (15-37); Alanine Aminotransfer ALT/SGPT 24 U/L (16-61); Albumin, Serum 3.8 g/dL (3.2-5.0); Alkaline Phosphatase 64 U/L (45-117); Anion Gap 3 (5-15); BUN 23 mg/dL (7-18); BUN/Creat Ratio 21.7 RATIO (10-20); Calcium,Total 9.3 mg/dL (8.5-10.1); Chloride 110 mmol/L (98-107); Creatinine, Serum 1.06 mg/dL (0.70-1.30); EST Glomerular Filtration Rate 74 mL/min (>60); Est Glom Filt Rate - Afr Amer 90 mL/min (>60); Glucose 101 mg/dL (74-106); Magnesium 2.9 mg/dL (1.6-2.6); Potassium 3.9 mmol/L (3.5-5.1); Protein, Total 6.8 g/dL (6.4-8.2); Sodium Level 142 mmol/L (136-145); Thyroid Stim Hormone (TSH) 0.805 uIU/mL (0.358-3.740)
== END | disposition home or self-care (01) ==
LOC: LAB 10:21
PROVIDERS: Referring Provider Nurse Practitioner Family; Visit Provider Nurse Practitioner Family
DX: R06.02 Shortness of breath (principal); I50.32 Chronic diastolic (congestive) heart failure; I48.0 Paroxysmal atrial fibrillation; R06.09 Other forms of dyspnea; Z79.899 Other long term (current) drug therapy; R00.0 Tachycardia, unspecified
CPT/HCPCS: 36415; 80053; 83735; 83880; 84443; 85025

== ENCOUNTER 2024-03-20 09:15 | Outpatient (RCR) | payer MEDICARE, BC, SELFPAY ==
[2024-02-28 09:15] VITALS: BMI 42.8
== END 2024-03-23 23:59 ==
LOC: CR 09:15
PROVIDERS: Referring Provider Internal Medicine Cardiovascular Disease; Visit Provider Internal Medicine Cardiovascular Disease
DX: Z98.890 Other specified postprocedural states (principal); I46.9 Cardiac arrest, cause unspecified; Z86.79 Personal history of other diseases of the circulatory system; Z95.818 Presence of other cardiac implants and grafts
CPT/HCPCS: 93798

== ENCOUNTER 2024-04-10 09:15 | Outpatient (RCR) | payer MEDICARE, BC, SELFPAY ==
[2024-03-13 10:19] VITALS: BMI 42.8
--- NOTE | 2024-03-29 11:02 | CR.ITP_ITS ---
Exercise - Initial Assessment Visit Session #:: 6 Physician Prescribed Exercise Modalities: Schwinn Airdyne AD-7, SciFit Stepper and SciFit Pro-II Ergometer Nutrition - Initial Assessment Weight Mgt (Other Care) Height: 6 ft Weight:: 305 lb 8 oz BMI: 41.4 Psychosocial - Initial Assess Target Goals Target Goals Referral to Behavioral Health PS - Interventions: Yes: Attend Stress Management Classes Patient Health Questionnaire PHQ-9 Screening 30-Day Re-eval Assessment: 1. Little interest or pleasure in doing things: Several days 2. Feeling down, depressed, or hopeless: Several days 3. Trouble falling or staying asleep, or sleeping too much: More than half the days 4. Feeling tired or having little energy: More than half the days 5. Poor appetite or overeating: Several days 6. Feeling bad about yourself -- or that you are a failure or have let yourself or your family down: Several days 7. Trouble concentrating on things, such as reading the newspaper or watching television: Several days 8. Moving or speaking so slowly that other people could have noticed. Or the opposite - being so fidgety or restless that you have been moving around a lot more than usual: More than half the days 9. Thoughts that you would be better off , or of hurting yourself in some way: Not at all How difficult have these problems made it for you to do your work, take care of things at home, or get along with other people?: Very difficult Total Score: 11 Self-Efficacy 6-Item Scale 30-Day Re-eval Assessment: We would like to know how confident you are in doing certain activities. Please select your confidence level for: Fatigue Select Number: 3 Physical Discomfort or Pain Select Number: 3 Emotional Distress Select Number: 3 Other Symptoms or Health Problems Select Number: 3 Different Tasks and Activities Select Number: 4 Medication Select Number: 4 Total Score:: 3 Nutrition Survey Nutrition Survey Instructions Scoring Instructions Exercise - 30-day Assessment Visit Date of Eval: 03/29/24 Session #:: 6 Physician Prescribed Exercise Modalities: Schwinn Airdyne AD-7, SciFit Stepper and SciFit Pro-II Ergometer Frequency: 3x/week for 12 weeks [36 sessions] Intensity: 60-80% of age predicted maximum heart rate reserve Duration: 30 - 45 minutes Current METSs:: 3 Target Heart Rate:: 92-115 Current RPE:: 9-10 Maximum Excercise HR:: 132 Resting Blood Pressure: 120/70 Maximum Exercise Blood Pressure: 130/60 EKG Type: Paced rhythm with rare pvc Outcomes & Goals Goals:: Verbalizes understanding of THR, RPE & goal METS by session 6, Documents in home exercise log/reports 30 min aerobic 5 day/wk by DC, Demonstrates accurate pulse taking by DC and Other additional outcome/goals: see below Intervention & Plan Exercise Program Goals: Instruct on personal THR & RPE, Instruct on MET level & personal MET goal, Show patient to take own pulse /validate performance until accurate, Instruct on home exercise and Other additional plan/int 30-day Reassessments 30 day Reassessments:: Progressing Reassessment Notes & Comments:: RPE explained to pt. Pt demonstrates understanding. Physical Activity Home Exercise Physical Activity - Home Exercise: Safe Exercise, Warm-up, Self-monitoring, Cool-Down, Home Exercise > 30 min Daily and Sitting Time <3 hours/daily Outcomes & Goals Outcomes/Goals: Demonstrates correct Warm-up/exercise Cool-Down (S3) if = 2.5 METs, Verbalizes symptoms of exercise intolerance by Session 3 (S3), Demonstrate safe equipment use (S3) & follows exercise prescrition (6) and Other: See below Intervention & Plan Plan/Intervention: Instruct warm-up & cool-down if exercising at > 2 METs, Instruct on symptoms of exercise intolerance & actions to take, Instruct & monitor on saf, Assess intial functional capacity & safety risk and Other See below 30-day Reassessments 30 day Reassessments:: Progressing Reassessment Notes & Comments:: Proper warm up explained and demonstrated to pt. Pt is able to return demonstration. Exercise - 60-day Assessment Physician Prescribed Exercise Modalities: Margo Bolivarne AD-7, SciFit Stepper and SciFit Pro-II Ergometer Exercise - 90-day Assessment Physician Prescribed Exercise Modalities: Margo Bradford AD-7, SciFit Stepper and SciFit Pro-II Ergometer Exercise - Final/Discharge Physician Prescribed Exercise Modalities: Belenn Kattne AD-7, SciFit Stepper and SciFit Pro-II Ergometer Nutrition - 30-Day Assessment Program Goals Nutrition Program Goals Patient has diagnosis of Hyperlipidemia (ICD E78)?: No Visit Date of Eval: 03/29/24 Session #:: 6 Cholesterol/Lipids (Other Core Measures) Determine presence & major risk factors that modify LDL goal: Hypertension or hypertensive medication, Low HDL cholesterol <40 mg/dL*, Family history of premature CHD in Male < 55 years: female <65 yearsFa and Age men > 45 years; women >/= 55 years Outcomes/Goals: Pt IDs own risk factors & lifestyle modifications by Session 10, Verbalizes symptoms of angina & response by session 3., Pt independently manages and Other Additional Outcomes/Goals: Intervention/Plan: Advocate for lipid panel cholesterol medication if applicable, Instruct on personal lipid levels & lipid goals/NCEP guidelines, Instruct on cholesterol and Other additional plan/int 30-day Reassessments:: Progressing Reassessment Notes & Comments:: Risk factors and how to minimize risk factors explained to pt. Pt demonstrates understanding. Diabetes (Other Core Measures) Diabetes Type: Not Applicable Weight Mgt (Other Care) Height: 6 ft Weight:: 305 lb 8 oz BMI: 41.4 Diagnosis Overweight/Obesity BMI> 30% ICD-10 E66: Yes Diagnosis High BMI/Morbid Obesity BMI> 35% ICD-10 Z68: Yes Outcomes/Goals: Pt sets, maintains & shows weight loss goal & trend during rehab and Other additional outcomes/goals Intervention/Plan: Instruct on ideal BMI & set weight loss goal w/patient, Assist pt to ID & incorporate diet changes for weight loss by S9, Refer to Structured Weight Loss program as appropriate, Encourage goal of using 250- 300dcal per session for weight loss and Other additional plan/interventions 30 day Reassessments:: Progressing Reassessment Notes & Comments:: Pt has attended nutrition class. Pt understands the benefits of a heart healthy diet. Healthy Eating Habits Will attend diet classes:: Yes Outcomes/Goals:: Consume diet rich in vegs,fruits,whole grain/high fib er,fish,lean meat, Limit sat/trans fats,cholesterol & added salts & sugars and Other additional outcome/goals: Intervention/Plan:: Assess current eating habits and Other Additional plan/interventions 30-day Reassessments:: Progressing Reassessment Notes & Comments:: Pt has attended nutrition class. Pt understands the benefits of a heart healthy diet. Pt encouraged to keep a food log. Education Gave educational materials for:: Signs & symptoms of hypoglycemia, Signs & sympt oms of hyperglycemia, Relate diabetes to coronary artery disease and Healthy eating Nutrition - 60-Day Assessment Weight Mgt (Other Care) Height: 6 ft Weight:: 305 lb 8 oz BMI: 41.4 Core - 30-Day Assessment Visit Date of Eval: 03/29/24 Session #:: 6 Medication Compliance Preventative Medication(s):: Aspirin, TREVOR inhibitor and Beta damian H/O mental health issues: depression, anxiety, or addiction?: Yes Doesn?t believe in the benefits of treatment?: No Believes medications are unnecessary or harmful?: No Has a concern about medication side effects?: No Expresses concern over the cost of medications?: No Outcomes/Goals: Verbalizes medications,desired effect & common side effects @ DC, Pt self-reports following medication regimen, Keeps card in wallet w/medications listed by DC and Other additional outcome/goals: Interventions/plans: Instruct on medication effects & side effects, Review medication list w/patient every two weeks, Instruct importance of taking meds as ordered & assist problem solving and Other additional 30-day Reassessments:: Progressing Reassessment Notes & Comments:: 03/14 Metoprolol 50 decreased to QD. Pt understands the benefits of taking meds as prescribed. Tobacco Use Tobacco Use: Non-smoker How long ago did you quit using tobacco products?: Greater than or equal to 6 months ago 30-day Reassessments:: Met Reassessment Notes & Comments:: Pt is a nonsmoker Hypertension Hypertension Diagnosis:: Hypertension ICD-10 I10 Resting Blood Pressure:: 120/70 [place] [employer] Hypertension Guidelines Peak Exercise Blood Pressure:: 130/60 Outcomes/Goals: Able to verbalize/achieve optimal blood pressure <130/80, Incorporates diet changes & exercise for blood pressure control by DC and Other additional outcomes/goals Interventions/plan: Instruct on optimal blood pressure, hypertension & medications, Instruct on effects of sodium, alcohol, stress, exercise &hypertension and Other additional plan/interventions 30 day Reassessments:: Progressing Reassessment Notes & Comments:: pt's BP's are within AHA normal limits on most days. Importance of weight loss and a low sodium diet explained to pt. Pt demonstrates understanding. Tobacco Cessation Referral Smoking Cessation Referral:: No Individual Education/Counseling:: No Education Schedule Given:: Yes Psychosocial - 30-Day Assess VIsit Date of Eval: 03/29/24 Session #:: 6 History of previous Mental disease:: Yes History of Emotional Disorders: Anxious (PTSD) Target Goals Target Goals Psychosocial Test Tool Used:: [employer] QOL Cardiac and PHQ-9 Questionnaire phq-9 Severity Referral to Behavioral Health PS - Interventions: Yes: Attend Stress Management Classes Outcomes/Goals: See list Psychosocial Outcomes/Goals:: ID's personal stressors & 2 strategies to manage stress by discharge and Other Additional outcome/goals: Intervention/Plan: See List Interventions/Plan:: Assess stressors,coping strategies & signs of derpression on admission, Instruct/assist pt to develop coping & personal stress Mgt strategies, Refer to Behavioral Health if appropriate, Refer to Physician if appropriate, Instruct patient to recognize signs & symptoms of depression, Instruct patient to recog and Other additional plan/intervention 30-day Reassessments: 30 day Reassessments:: Progressing Reassessment Notes & Comments:: Pt is to attend nutrition class. Pt is currently doing well. Psychosocial - 60-Day Assess Target Goals Target Goals Referral to Behavioral Health PS - Interventions: Yes: Attend Stress Management Classes Outcomes/Goals: See list Psychosocial Outcomes/Goals:: ID's personal stressors & 2 strategies to manage stress by discharge and Other Additional outcome/goals: Psychosocial - 90-Day Assess Target Goals Target Goals Referral to Behavioral Health PS - Interventions: Yes: Attend Stress Management Classes Psychosocial - Final Assessmen Target Goals Target Goals Referral to Behavioral Health PS - Interventions: Yes: Attend Stress Management Classes Nutrition - 90-Day Assessment Weight Mgt (Other Care) Height: 6 ft Weight:: 305 lb 8 oz BMI: 41.4 Nutrition - Final Assessment Weight Mgt (Other Care) Height: 6 ft Weight:: 305 lb 8 oz BMI: 41.4
[2024-03-29 11:25] VITALS: BP 120/70; BMI 41.4
== END 2024-04-23 23:59 ==
LOC: CR 09:15
PROVIDERS: Referring Provider Internal Medicine Cardiovascular Disease; Visit Provider Internal Medicine Cardiovascular Disease
DX: Z98.890 Other specified postprocedural states (principal); Z86.79 Personal history of other diseases of the circulatory system; Z95.818 Presence of other cardiac implants and grafts; I46.9 Cardiac arrest, cause unspecified
CPT/HCPCS: 93798

== ENCOUNTER 2024-04-18 10:24 | Emergency (ER) | payer OTHER, SELFPAY ==
[2024-03-29 11:25] VITALS: BMI 41.4
[2024-04-18 10:25] VITALS: BP 152/97; PULSE 62; RESP 14; TEMP 37.1; O2SAT 97; BMI 42.9
[2024-04-18 10:43] VITALS: O2SAT 95
[2024-04-18] MEDS: predniSONE 20 MG Tablet 60 MG PO (11:25)
--- NOTE | 2024-04-18 11:28 | EX.ED.DYSGE1 ---
HPI <RODRICK Rocha - Last Filed: 04/18/24 14:54> History of Present Illness Chief Complaint: Shortness of Breath Narrative Narrative: Patient presenting today with nasal congestion, sore throat, wheezing, body aches, a productive cough with green-colored sputum, and dyspnea with exertion he has had this over the past 2 days. He does have a history of asthma, he feels like his asthma is flared. He denies fevers, chills, chest pain, abdominal pain, nausea, and vomiting. He has a PMH of A-fib on Xarelto, HTN, pacemaker placement, asthma, and CHF. PFSH <RODRICK Rocha - Last Filed: 04/18/24 14:54> PFS Medical History History of pacemaker Wears hearing aid Wears glasses PTSD (post-traumatic stress disorder) Anxiety Arthritis Vertigo Former smoker CPAP (continuous positive airway pressure) dependence History of pain when walking History of stress test Hypertension History of echocardiogram Cardiology follow-up encounter History of atrial fibrillation Acute posterior anal fissure Hemorrhoids, internal, with bleeding Paroxysmal atrial fibrillation Secondary pulmonary arterial hypertension Essential (primary) hypertension Chronic diastolic (congestive) heart failure Asthma Sick sinus syndrome Atypical atrial flutter Bradycardia Morbid obesity with BMI of 40.0-44.9, adult Home Medications ?Medication ?Instructions ?Recorded ?Last Taken ?Type albuterol sulfate 90 mcg/actuation 2 puff inhalation Q6H PRN PRN 07/21/17 07/18/17 History aerosol inhaler Wheezing/SOB lisinopril 20 mg tablet 20 mg PO DAILY 05/23/18 11/21/23 History amiodarone 200 mg tablet 200 mg PO DAILY #90 tabs 05/24/21 11/21/23 Rx tadalafil 5 mg tablet 5 mg PO DAILY 12/19/22 11/19/23 History rivaroxaban 20 mg tablet 20 mg PO QHS 03/20/23 11/16/23 History cholecalciferol (vitamin D3) 50 50 mcg PO DAILY 10/27/23 Unknown History mcg (2,000 unit) capsule eplerenone 25 mg tablet (Inspra) 12.5 mg (1/2 x 25 mg) PO DAILY #30 11/13/23 Unknown Rx tabs acetaminophen 325 mg capsule 325 mg PO ONCE PRN 02/14/24 Unknown History diclofenac sodium 1 % topical gel 2 g topical ONCE PRN 02/14/24 Unknown History (Voltaren Arthritis Pain) empagliflozin 25 mg tablet 12.5 mg PO QAM 02/14/24 Unknown History aspirin 325 mg tablet,delayed 325 mg PO QDAY 02/19/24 Unknown History release furosemide 40 mg tablet 40 mg PO .COMPLEX #60 tabs 02/19/24 Unknown Rx potassium gluconate 595 mg (99 mg) 595 mg PO QDAY 02/19/24 Unknown History tablet metoprolol succinate 50 mg 50 mg PO QDAY #90 tabs 03/13/24 Unknown Rx tablet,extended release 24 hr prednisone 20 mg tablet 40 mg (2 x 20 mg) PO DAILY 5 days 04/18/24 Unknown Rx #10 tabs Allergy/AdvReac Type Severity Reaction Status Date / Time Environmental Allergies: Allergy wheezing, Verified 04/18/24 10:25 Uncoded (hay fever) cough Family History Mother Diabetes Hypertension Father Cancer prostate Other CVA (cerebral vascular accident) Surgical History History of open heart surgery S/P hernia repair S/P total knee replacement (08/08/23) History of umbilical hernia repair Hx of laparoscopy Status post bilateral hernia repair History of colonoscopy (11/25/19) History of hemorrhoidectomy History of left heart catheterization (07/21/17) Presence of permanent cardiac pacemaker (12/01/17) History of cardioversion (06/11/18) History of cardiac radiofrequency ablation (08/24/18) Social History household members: spouse Smoking Status: Former smoker substance use type: does not use ROS <RODRICK Rocha - Last Filed: 04/18/24 14:54> ROS ED Constitutional Constitutional ED: Denies chills or fever(s) Cardiovascular Cardiovascular: Denies chest pain Respiratory/Chest Respiratory/Chest: Reports cough, dyspnea on exertion, sputum and wheezing Gastrointestinal Gastrointestinal: Denies abdominal pain, nausea or vomiting Musculoskeletal Musculoskeletal: Reports myalgias Integumentary Denies rash Neurologic Neurologic: Denies weakness EXAM <RODRICK Rocha Last Filed: 04/18/24 14:54> Physical Exam Const Vital Signs: 04/18/24 10:25 04/18/24 10:43 04/18/24 11:42 Temperature 98.7 F Temperature Source Oral Pulse Rate 62 60 Respiratory Rate 14 20 H Respiratory Effort Short of Breath Respiratory Depth Normal Respiratory Pattern Tachypnea Normal Blood Pressure 152/97 H Blood Pressure Mean 115 Pulse Ox 97 Oxygen Delivery Method Room Air Room Air 04/18/24 12:25 Temperature Temperature Source Pulse Rate 61 Respiratory Rate Respiratory Effort Respiratory Depth Respiratory Pattern Blood Pressure 142/70 H Blood Pressure Mean 94 Pulse Ox 97 Oxygen Delivery Method Room Air Positive well nourished, well developed and no apparent distress General Appearance ED: well developed HEENT Reports normocephalic and head/scalp atraumatic HEENT Narrative: Posterior pharynx clear, uvula midline, no tonsillar exudate, no drooling Mouth ED: Yes moist mucous membranes normal Eyes PERRL and EOMs intact bilaterally Neck full ROM and supple Neck Narrative: No meningeal signs Chest Wall inspection of chest normal Resp normal respiratory effort Resp Narrative: Inspiratory and expiratory wheezes to the bilateral lung quiles Cardio regular rate and regular rhythm GI soft to palpation, non-tender, non-distended and no masses Back/Spine normal ROM and normal to inspection Extremity normal to inspection and full ROM Neuro oriented x3, CN's II-XII intact bilaterally, moves all extremities, no focal motor deficits and no sensory deficits noted Sensorium / Orientation: awake and alert Psych mental status grossly normal and thought process normal Skin no rashes or lesions noted and no wounds <Dr. Qamar Rosario DO - Last Filed: 04/18/24 22:19> Physical Exam Const Vital Signs: 04/18/24 10:25 04/18/24 10:43 04/18/24 11:42 Temperature 98.7 F Temperature Source Oral Pulse Rate 62 60 Respiratory Rate 14 20 H Respiratory Effort Short of Breath Respiratory Depth Normal Respiratory Pattern Tachypnea Normal Blood Pressure 152/97 H Blood Pressure Mean 115 Pulse Ox 97 Oxygen Delivery Method Room Air Room Air 04/18/24 12:25 Temperature Temperature Source Pulse Rate 61 Respiratory Rate Respiratory Effort Respiratory Depth Respiratory Pattern Blood Pressure 142/70 H Blood Pressure Mean 94 Pulse Ox 97 Oxygen Delivery Method Room Air MDM <RODRICK Rocha - Last Filed: 04/18/24 14:54> [facility] Narrative Medical decision making narrative: Patient presenting today with flulike symptoms he has had over the past 2 days. He does have a history of asthma which appears to be exacerbated due to his likely viral illness. His vitals are unremarkable, his O2 saturation is 97% on room air, he is nontoxic-appearing. Patient will be given prednisone and DuoNeb and albuterol breathing treatments. COVID/influenza/RSV swab is negative. Chest x-ray shows no infiltrate or acute findings. I suspect a viral process, do not feel antibiotics are indicated at this time. His O2 saturation has remained above 95% on room air. He will be given a prescription for prednisone. I recommended he follow-up with his PCP, return instructions discussed. Patient discharged home in stable condition. Radiography X-Ray: Read by ED Physician Diagnostic Testing: Clinical Impression(s) from Imaging Studies Chest X-Ray 04/18/24 11:54 IMPRESSION: No acute findings in the chest and unchanged. Electronically Signed: Vick Matthews MD at 12:45 EST , <Dr. Qamar Rosario DO - Last Filed: 04/18/24 22:19> [facility] Narrative Medical decision making narrative: Patient presenting today with flulike symptoms he has had over the past 2 days. He does have a history of asthma which appears to be exacerbated due to his likely viral illness. His vitals are unremarkable, his O2 saturation is 97% on room air, he is nontoxic-appearing. Patient will be given prednisone and DuoNeb and albuterol breathing treatments. COVID/influenza/RSV swab is negative. Chest x-ray shows no infiltrate or acute findings. I suspect a viral process, do not feel antibiotics are indicated at this time. His O2 saturation has remained above 95% on room air. He will be given a prescription for prednisone. I recommended he follow-up with his PCP, return instructions discussed. Patient discharged home in stable condition. Attending note: I have personally performed a face to face assessment of the patient and have reviewed the PARAS note. I personally made/approved the management plan and take responsibility for the patient management. I performed a substantive portion of the visit including all aspects of the following. My vo findings include: 2-day history of cough congestion myalgias. On Xarelto for paroxysmal A-fib. Exam alert nontoxic pulse ox 97 room air. Lungs are normal and clear post aerosol treatments. Two-view chest x-ray interpreted myself and read by radiology shows no acute process. Viral swabs are negative. Discussed viral syndrome with the patient. Asthma history therefore started on prednisone due to wheezing. Radiography Diagnostic Testing: Clinical Impression(s) from Imaging Studies Chest X-Ray 04/18/24 11:54 IMPRESSION: No acute findings in the chest and unchanged. Electronically Signed: Vick Matthews MD at 12:45 EST , Discharge Plan Triage Chief Complaint: Shortness of Breath ED Midlevel Provider: Sowmya Pryor ED Provider: Qamar Rosraio Dx/Rx/DC Orders Clinical Impression: Asthma exacerbation, URI (upper respiratory infection) Instructions: ED URI, Viral W/ Wheezing (Adult), Asthma Prescriptions: New prednisone 20 mg tablet 40 mg PO DAILY 5 Days Qty: 10 0RF No Action lisinopril 20 mg tablet 20 mg PO DAILY cholecalciferol (vitamin D3) 50 mcg (2,000 unit) capsule 50 mcg PO DAILY acetaminophen 325 mg capsule 325 mg PO ONCE PRN empagliflozin 25 mg tablet 12.5 mg PO QAM diclofenac sodium [Voltaren Arthritis Pain] 1 % gel 2 g topical ONCE PRN Rx Instructions: apply to bilateral shoulders aspirin 325 mg tablet,delayed release (DR/EC) 325 mg PO QDAY potassium gluconate 595 mg (99 mg) tablet 595 mg PO QDAY furosemide 40 mg tablet 40 mg PO .COMPLEX Qty: 60 3RF Rx Instructions: 40 mg orally; 40mg in AM and 20mg in PM metoprolol succinate 50 mg tablet extended release 24 hr 50 mg PO QDAY Qty: 90 3RF albuterol sulfate 1 INHALER inhaler 2 puff INHALATION Q6H PRN PRN (Reason: Wheezing/SOB) Patient Comments: Wheezing/SOB tadalafil 5 mg tablet 5 mg PO DAILY Patient Comments: Take 1 tablet by mouth every morning. rivaroxaban 20 mg tablet 20 mg PO QHS Rx Instructions: administer with evening meal amiodarone 200 mg tablet 200 mg PO DAILY Qty: 90 3RF eplerenone [Inspra] 25 mg tablet 12.5 mg PO DAILY Qty: 30 1RF Primary Care Provider: [facility] Ref[place] [facility] [Primary Care Provider] - 1-2 Weeks Activity Restrictions/Additional Instructions: Chest x-ray negative. COVID, flu, RSV negative. Take steroids prescribed for your asthma. Continue your inhaler treatment. Follow-up with your PCP and return for any worsening symptoms. Print Language: Bengali Disposition Disposition: Home, Self Care Discharge Date/Time: 04/18/24 13:32
[2024-04-18] MEDS: Ipratropium/Albuterol Sulfate 3 ML AMPUL.NEB INHALATION (11:40)
[2024-04-18] MEDS: Albuterol 2.5 MG/3 ML VIAL.NEB. INHALATION (11:40)
[2024-04-18 11:42] VITALS: PULSE 60; RESP 20
--- NOTE | 2024-04-18 11:54 | RAD_ITS ---
EXAM: XR CHEST, 2 VIEWS CLINICAL INDICATION: Cough. TECHNIQUE: Frontal and lateral views of the chest. COMPARISON: 02/14/2024. FINDINGS: LUNGS AND PLEURAL SPACES: Unremarkable. No consolidation or edema. No pneumothorax. No effusion. HEART: Aortic valve prosthesis was also present previously. MEDIASTINUM: Central airways and mediastinal contour are unremarkable. BONES/JOINTS: Intact sternal wires. No acute fracture. SOFT TISSUES: Unremarkable. TUBES, LINES AND DEVICES: Patient lead tips remain in the right atrium and right ventricle. RAD/Chest PA and Lateral IMPRESSION: No acute findings in the chest and unchanged. Electronically Signed: Vick Matthews MD at 12:45 EST ,
[2024-04-18 12:25] VITALS: BP 142/70; PULSE 61; O2SAT 97
== END 2024-04-18 13:32 | disposition home or self-care (01) ==
PROVIDERS: Emergency Provider Emergency Medicine; Visit Provider Emergency Medicine
DX: J45.901 Unspecified asthma with (acute) exacerbation (principal); I11.0 Hypertensive heart disease with heart failure; I50.32 Chronic diastolic (congestive) heart failure; I48.0 Paroxysmal atrial fibrillation; Z87.891 Personal history of nicotine dependence; J06.9 Acute upper respiratory infection, unspecified; Z95.0 Presence of cardiac pacemaker; Z99.89 Dependence on other enabling machines and devices; R05.9 Cough, unspecified; Z79.01 Long term (current) use of anticoagulants
CPT/HCPCS: 71046; 87631; 94640; 99283; A4216

== ENCOUNTER 2024-04-26 06:13 | Outpatient (RCR) | payer MEDICARE, BC, SELFPAY ==
[2024-04-24 00:41] VITALS: BP 120/70; BMI 42.8
--- NOTE | 2024-04-29 08:08 | CR.ITP_ITS ---
Exercise - Initial Assessment Physician Prescribed Exercise Modalities: Treadmill, SciFit Stepper and SciFit Pro-II Ergometer Nutrition - Initial Assessment Weight Mgt (Other Care) Height: 6 ft Weight:: 308 lb BMI: 41.8 Psychosocial - Initial Assess Target Goals Target Goals Referral to Behavioral Health PS - Interventions: Yes: Attend Stress Management Classes Patient Health Questionnaire PHQ-9 Screening 60-Day Re-eval Assessment: 1. Little interest or pleasure in doing things: Several days 2. Feeling down, depressed, or hopeless: Several days 3. Trouble falling or staying asleep, or sleeping too much: More than half the days 4. Feeling tired or having little energy: More than half the days 5. Poor appetite or overeating: Several days 6. Feeling bad about yourself -- or that you are a failure or have let yourself or your family down: Several days 7. Trouble concentrating on things, such as reading the newspaper or watching television: Several days 8. Moving or speaking so slowly that other people could have noticed. Or the opposite - being so fidgety or restless that you have been moving around a lot more than usual: More than half the days 9. Thoughts that you would be better off , or of hurting yourself in some way: Not at all How difficult have these problems made it for you to do your work, take care of things at home, or get along with other people?: Very difficult Total Score: 11 Self-Efficacy 6-Item Scale 60-Day Re-eval Assessment: We would like to know how confident you are in doing certain activities. Please select your confidence level for: Fatigue Select Number: 3 Physical Discomfort or Pain Select Number: 3 Emotional Distress Select Number: 3 Other Symptoms or Health Problems Select Number: 3 Different Tasks and Activities Select Number: 4 Medication Select Number: 4 Total Score:: 3 Nutrition Survey Nutrition Survey Instructions Scoring Instructions Exercise - 30-day Assessment Physician Prescribed Exercise Modalities: Treadmill, SciFit Stepper and SciFit Pro-II Ergometer Exercise - 60-day Assessment Visit Date of Eval: 04/29/24 Session #:: 9 Physician Prescribed Exercise Modalities: Treadmill, SciFit Stepper and SciFit Pro-II Ergometer Frequency: 3x/week for 12 weeks [36 sessions] Intensity: 60-80% of age predicted maximum heart rate reserve Duration: 30 - 45 minutes METs - Progression 0.5-1.0 weekly:: 0.5 Current METSs:: 3 Target Heart Rate:: 92-115 Current RPE:: 11 Maximum Excercise HR:: 128 Resting Blood Pressure: 124/68 Maximum Exercise Blood Pressure: 140/62 EKG Type: Paced rhythm with rare PVC. Current Physical Activity or Exercising minutes: 30 Outcomes & Goals Goals:: Verbalizes understanding of THR, RPE & goal METS by session 6, Documents in home exercise log/reports 30 min aerobic 5 day/wk by DC and Demonstrates accurate pulse taking by DC Intervention & Plan Exercise Program Goals: Instruct on personal THR & RPE, Instruct on MET level & personal MET goal, Show patient to take own pulse /validate performance until accurate and Instruct on home exercise 30-day Reassessments 30 day Reassessments:: Progressing Reassessment Notes & Comments:: exercising at prescribed workloads, using RPE scale accurately, Physical Activity Home Exercise Physical Activity - Home Exercise: Safe Exercise, Warm-up, Self-monitoring, Cool-Down, Home Exercise > 30 min Daily and Sitting Time <3 hours/daily Outcomes & Goals Outcomes/Goals: Demonstrates correct Warm-up/exercise Cool-Down (S3) if = 2.5 METs, Verbalizes symptoms of exercise intolerance by Session 3 (S3) and Demonstrate safe equipment use (S3) & follows exercise prescrition (6) Intervention & Plan Plan/Intervention: Instruct warm-up & cool-down if exercising at > 2 METs, Instruct on symptoms of exercise intolerance & actions to take, Instruct & monitor on saf and Assess intial functional capacity & safety risk 30-day Reassessments 30 day Reassessments:: Progressing Reassessment Notes & Comments:: Pt demonstrates understanding of importance of warm up/cool down, home exercise routine not yet established Exercise - 90-day Assessment Physician Prescribed Exercise Modalities: Treadmill, SciFit Stepper and SciFit Pro-II Ergometer Exercise - Final/Discharge Physician Prescribed Exercise Modalities: Treadmill, SciFit Stepper and SciFit Pro-II Ergometer Nutrition - 30-Day Assessment Weight Mgt (Other Care) Height: 6 ft Weight:: 308 lb BMI: 41.8 Nutrition - 60-Day Assessment Program Goals Nutrition Program Goals Patient has diagnosis of Hyperlipidemia (ICD E78)?: No Visit Date of Eval: 04/29/24 Session #:: 9 Cholesterol/Lipids (Other Core Measures) Outcomes/Goals: Pt IDs own risk factors & lifestyle modifications by Session 10, Verbalizes symptoms of angina & response by session 3. and Pt independently manages Intervention/Plan: Advocate for lipid panel cholesterol medication if applicable, Instruct on personal lipid levels & lipid goals/NCEP guidelines and Instruct on cholesterol 30-day Reassessments:: Progressing Reassessment Notes & Comments:: Pt attended dietary teaching class. encouraged to continue heart healthy diet. Diabetes (Other Core Measures) Diabetes Type: Not Applicable Weight Mgt (Other Care) Height: 6 ft Weight:: 308 lb BMI: 41.8 Diagnosis Overweight/Obesity BMI> 30% ICD-10 E66: Yes Diagnosis High BMI/Morbid Obesity BMI> 35% ICD-10 Z68: Yes Outcomes/Goals: Pt sets, maintains & shows weight loss goal & trend during rehab Intervention/Plan: Instruct on ideal BMI & set weight loss goal w/patient, Assist pt to ID & incorporate diet changes for weight loss by S9, Refer to Structured Weight Loss program as appropriate and Encourage goal of using 250- 300dcal per session for weight loss 30 day Reassessments:: Progressing Reassessment Notes & Comments:: Pt working toward weight loss goal. Has not weighed in in several weeks due to absences. Healthy Eating Habits Will attend diet classes:: Yes Outcomes/Goals:: Consume diet rich in vegs,fruits,whole grain/high fiber,fish,lean meat and Limit sat/trans fats,cholesterol & added salts & sugars Intervention/Plan:: Assess current eating habits 30-day Reassessments:: Progressing Reassessment Notes & Comments:: Pt attended dietary teaching class previously. encouraged to continue heart healthy diet. Education Gave educational materials for:: Signs & symptoms of hypoglycemia, Signs & symptoms of hyperglycemia, Relate diabetes to coronary artery disease and Healthy eating Core - Final Assessment Tobacco Use Reassessment Notes & Comments:: Pt is a nonsmoker. Core - 60-Day Assessment Visit Date of Eval: 04/29/24 Session #:: 9 Medication Compliance Preventative Medication(s):: Aspirin, TREVOR inhibitor and Beta damian H/O mental health issues: depression, anxiety, or addiction?: Yes Doesn?t believe in the benefits of treatment?: No Believes medications are unnecessary or harmful?: No Has a concern about medication side effects?: No Expresses concern over the cost of medications?: No Outcomes/Goals: Verbalizes medications,desired effect & common side effects @ DC, Pt self-reports following medication regimen and Keeps card in wallet w/medications listed by DC Interventions/plans: Instruct on medication effects & side effects, Review medication list w/patient every two weeks and Instruct importance of taking meds as ordered & assist problem solving 30-day Reassessments:: Met Reassessment Notes & Comments:: Pt taking medications as prescribed. Tobacco Use Tobacco Use: Non-smoker How long ago did you quit using tobacco products?: Greater than or equal to 6 months ago 30-day Reassessments:: Met Reassessment Notes & Comments:: Pt is a nonsmoker. Hypertension Hypertension Diagnosis:: Hypertension ICD-10 I10 Resting Blood Pressure:: 124/68 [place] [employer] Hypertension Guidelines Peak Exercise Blood Pressure:: 140/62 Outcomes/Goals: Able to verbalize/achieve optimal blood pressure <130/80 and Incorporates diet changes & exercise for blood pressure control by DC Interventions/plan: Instruct on optimal blood pressure, hypertension & medications and Instruct on effects of sodium, alcohol, stress, exercise &hypertension 30 day Reassessments:: Progressing Reassessment Notes & Comments:: Pt takes their medication as prescribed. BP's are WNL most days. attended dietary class and educated regarding a heart healthy diet. working toward weight loss goal, but has not attended rehab in a few weeks to note recent progress. Tobacco Cessation Referral Smoking Cessation Referral:: No Individual Education/Counseling:: No Education Schedule Given:: Yes Psychosocial - 30-Day Assess Target Goals Target Goals Referral to Behavioral Health PS - Interventions: Yes: Attend Stress Management Classes Outcomes/Goals: See list Psychosocial Outcomes/Goals:: ID's personal stressors & 2 strategies to manage stress by discharge Psychosocial - 60-Day Assess VIsit Date of Eval: 04/29/24 Session #:: 9 History of previous Mental disease:: Yes History of Emotional Disorders: None (ptsd) Target Goals Target Goals Psychosocial Test Tool Used:: [employer] QOL Cardiac and PHQ-9 Questionnaire phq-9 Severity Referral to Behavioral Health PS - Interventions: Yes: Attend Stress Management Classes Outcomes/Goals: See list Psychosocial Outcomes/Goals:: ID's personal stressors & 2 strategies to manage stress by discharge Intervention/Plan: See List Interventions/Plan:: Assess stressors,coping strategies & signs of derpression on admission, Instruct/assist pt to develop coping & personal stress Mgt strategies, Refer to Behavioral Health if appropriate, Refer to Physician if appropriate, Instruct patient to recognize signs & symptoms of depression and Instruct patient to recog 30-day Reassessments: 30 day Reassessments:: Progressing Reassessment Notes & Comments:: Pt to attend stress management class. unable to note significant progress due to only attending 3 times since last reassessment. Psychosocial - 90-Day Assess Target Goals Target Goals Referral to Behavioral Health PS - Interventions: Yes: Attend Stress Management Classes Psychosocial - Final Assessmen Target Goals Target Goals Referral to Behavioral Health PS - Interventions: Yes: Attend Stress Management Classes Nutrition - 90-Day Assessment Weight Mgt (Other Care) Height: 6 ft Weight:: 308 lb BMI: 41.8 Nutrition - Final Assessment Weight Mgt (Other Care) Height: 6 ft Weight:: 308 lb BMI: 41.8
[2024-04-29 08:50] VITALS: BP 124/68; BMI 41.8
== END 2024-05-24 23:59 ==
LOC: CR 06:13
PROVIDERS: Referring Provider Internal Medicine Cardiovascular Disease; Visit Provider Internal Medicine Cardiovascular Disease
DX: Z98.890 Other specified postprocedural states (principal); Z86.79 Personal history of other diseases of the circulatory system; Z95.818 Presence of other cardiac implants and grafts; I46.9 Cardiac arrest, cause unspecified

== ENCOUNTER → 2024-05-15 | Outpatient (CLI) | payer MEDICARE, BC, SELFPAY ==
[2024-04-29 08:50] VITALS: BMI 41.8
[2024-05-15 11:30] LABS: Absolute Lymphocyte Count 1.89 X10^3/uL (0.83-4.51); Absolute Neutrophil Count 3.6 X10^3/uL (2.0-7.7); Basophil% 1.6 % (0-1); Eosinophil# 0.21 X10^3/uL; Eosinophils% 3.3 % (0-5); Hematocrit 42.9 % (40-54); Hemoglobin 13.3 g/dL (13.0-16.5); Lymphocyte # 1.89 X10^3/ul (0.83-4.51); Lymphocyte % 29.6 % (19-41); Mean Corpuscular Hgb 25.5 pg (27.0-32.0); Mean Corpuscular Volume 82.3 fL (80-94); Mean Platelet Vol. 10.8 fl (6.2-12.0); Monocyte# 0.57 X10^3/uL; Monocyte% 8.9 % (0-10); NRBC Flagged by Analyzer 0 % (0-5); Neutrophil # 3.61 X10^3/uL (2.7-7.7); Neutrophil % 56.4 % (47-70); Platelet Count 259 K/mm3 (150-450); RBC Distribution Width CV 15.2 % (11.6-14.6); RBC Distribution Width SD 45.8 fl (35.1-43.9); Red Blood Count 5.21 M/mm3 (4.6-6.2); White Blood Count 6.4 K/mm3 (4.4-11.0)
[2024-05-15 11:58] LABS: Anion Gap 5 (5-15); BUN 25 mg/dL (7-18); BUN/Creat Ratio 20.2 RATIO (10-20); Calcium,Total 9.6 mg/dL (8.5-10.1); Chloride 104 mmol/L (98-107); Creatinine, Serum 1.24 mg/dL (0.70-1.30); EST Glomerular Filtration Rate 62 mL/min (>60); Est Glom Filt Rate - Afr Amer 75 mL/min (>60); Ferritin 22 ng/mL (26-388); Glucose 96 mg/dL (74-106); Iron 46 ug/dL (65-175); Iron Binding Capacity,Total 416 ug/dL (250-450); Potassium 4.2 mmol/L (3.5-5.1); Sodium Level 138 mmol/L (136-145)
[2024-05-16 13:07] LABS: Transferrin 345 mg/dL (177-329)
== END | disposition home or self-care (01) ==
LOC: LAB 11:01
PROVIDERS: Referring Provider Nurse Practitioner Family; Visit Provider Nurse Practitioner Family
DX: D64.9 Anemia, unspecified (principal); I48.4 Atypical atrial flutter; R06.09 Other forms of dyspnea; Z95.0 Presence of cardiac pacemaker; I10 Essential (primary) hypertension
CPT/HCPCS: 36415; 80048; 82728; 83540; 83550; 84466; 85025

== ENCOUNTER 2024-08-13 11:34 | Emergency (ER) | payer OTHER, SELFPAY ==
[2024-08-13 11:35] VITALS: BP 159/67; PULSE 60; RESP 24; TEMP 36.3; O2SAT 94
[2024-08-13 11:38] VITALS: BMI 42.8
--- NOTE | 2024-08-13 11:40 | ED.RN ---
Respiratory called for EKG and notified of wheezing.
[2024-08-13 11:47] VITALS: O2SAT 98
[2024-08-13 11:57] VITALS: PULSE 60; RESP 17
[2024-08-13] MEDS: MethylPREDNISolone 125 MG/2 ML Vial IV (11:57)
[2024-08-13] MEDS: Ipratropium/Albuterol Sulfate 3 ML AMPUL.NEB INHALATION (11:57)
--- NOTE | 2024-08-13 11:58 | EDS_ITS ---
HPI History of Present Illness Chief Complaint: Shortness of Breath Narrative Narrative: History of sick sinus syndrome with pacemaker, paroxysmal A-fib on Xarelto, asthma presents for history of respiratory symptoms sinus congestion leading to productive cough with wheezing. Remote tobacco years ago. No chest pains. Using his nebulizers and inhaler. Possible sick contact with another worker. No fevers or myalgias. Did home COVID that was negative. Denies vomiting or diarrhea. Denies history of diabetes. Prior similar symptoms: Yes PFSH PFSH Medical History History of pacemaker Wears hearing aid Wears glasses PTSD (post-traumatic stress disorder) Anxiety Arthritis Vertigo Former smoker CPAP (continuous positive airway pressure) dependence History of pain when walking History of stress test Hypertension History of echocardiogram Cardiology follow-up encounter History of atrial fibrillation Acute posterior anal fissure Hemorrhoids, internal, with bleeding Paroxysmal atrial fibrillation Secondary pulmonary arterial hypertension Essential (primary) hypertension Chronic diastolic (congestive) heart failure Asthma Sick sinus syndrome Atypical atrial flutter Bradycardia Morbid obesity with BMI of 40.0-44.9, adult Home Medications ?Medication ?Instructions ?Recorded ?Last Taken ?Type albuterol sulfate 90 mcg/actuation 2 puff inhalation Q 6H PRN PRN 07/21/17 07/18/17 History aerosol inhaler Wheezing/SOB lisinopril 20 mg tablet 20 mg PO DAILY 05/23/1810/24 History tadalafil 5 mg tablet 5 mg PO DAILY 12/19/2211/18 History rivaroxaban 20 mg tablet 20 mg PO QHS 03/20/23 History cholecalciferol (vitamin D3) 50 50 mcg PO DAILY Unknown History mcg (2,000 unit) capsule eplerenone 25 mg tablet (Inspra) 12.5 mg (1/2 x 25 mg) PO DAILY #30 11/13/23 Unknown Rx tabs acetaminophen 325 mg capsule 325 mg PO ONCE PRN Unknown History diclofenac sodium 1 % topical gel 2 g topical ONCE PRN 02/14/24 Unknown History (Voltaren Arthritis Pain) empagliflozin 25 mg tablet 12.5 mg PO QAM 02/14/24 Unk nown History potassium gluconate 595 mg (99 mg) 595 mg PO QDAY 01/23 12/15 Unknown History tablet metoprolol succinate 50 mg 50 mg PO QDAY #90 tabs 02/23 Unknown Rx tablet,extended release 24 hr furosemide 40 mg tablet 20 mg PO QDAY 05/15/24 Unkno wn History cefdinir 300 mg capsule 300 mg PO Q12H #14 caps 07/24 06/18 Unknown Rx
--- NOTE | 2024-08-13 11:58 | ED.VIS.DYS ---
HPI History of Present Illness Chief Complaint: Shortness of Breath Narrative Narrative: History of sick sinus syndrome with pacemaker, paroxysmal A-fib on Xarelto, asthma presents for history of respiratory symptoms sinus congestion leading to productive cough with wheezing. Remote tobacco years ago. No chest pains. Using his nebulizers and inhaler. Possible sick contact with another worker. No fevers or myalgias. Did home COVID that was negative. Denies vomiting or diarrhea. Denies history of diabetes. Prior similar symptoms: Yes PFSH PFSH Medical History History of pacemaker Wears hearing aid Wears glasses PTSD (post-traumatic stress disorder) Anxiety Arthritis Vertigo Former smoker CPAP (continuous positive airway pressure) dependence History of pain when walking History of stress test Hypertension History of echocardiogram Cardiology follow-up encounter History of atrial fibrillation Acute posterior anal fissure Hemorrhoids, internal, with bleeding Paroxysmal atrial fibrillation Secondary pulmonary arterial hypertension Essential (primary) hypertension Chronic diastolic (congestive) heart failure Asthma Sick sinus syndrome Atypical atrial flutter Bradycardia Morbid obesity with BMI of 40.0-44.9, adult Home Medications ?Medication ?Instructions ?Recorded ?Last Taken ?Type albuterol sulfate 90 mcg/actuation 2 puff inhalation Q6H PRN PRN 07/21/17 07/18/17 History aerosol inhaler Wheezing/SOB lisinopril 20 mg tablet 20 mg PO DAILY 05/23/18 11/21/23 History tadalafil 5 mg tablet 5 mg PO DAILY 12/19/22 11/19/23 History rivaroxaban 20 mg tablet 20 mg PO QHS 03/20/23 11/16/23 History cholecalciferol (vitamin D3) 50 50 mcg PO DAILY 10/27/23 Unknown History mcg (2,000 unit) capsule eplerenone 25 mg tablet (Inspra) 12.5 mg (1/2 x 25 mg) PO DAILY #30 11/13/23 Unknown Rx tabs acetaminophen 325 mg capsule 325 mg PO ONCE PRN 02/14/24 Unknown History diclofenac sodium 1 % topical gel 2 g topical ONCE PRN 02/14/24 Unknown History (Voltaren Arthritis Pain) empagliflozin 25 mg tablet 12.5 mg PO QAM 02/14/24 Unknown History potassium gluconate 595 mg (99 mg) 595 mg PO QDAY 10/28/24 Unknown History tablet metoprolol succinate 50 mg 50 mg PO QDAY #90 tabs 03/13/24 Unknown Rx tablet,extended release 24 hr furosemide 40 mg tablet 20 mg PO QDAY 05/15/24 Unknown History cefdinir 300 mg capsule 300 mg PO Q12H #14 caps 08/13/24 Unknown Rx prednisone 20 mg tablet 60 mg (3 x 20 mg) PO DAILY #15 08/13/24 Unknown Rx TABLETS Allergy/AdvReac Type Severity Reaction Status Date / Time Environmental Allergies: Allergy wheezing, Verified 08/13/24 11:38 Uncoded (hay fever) cough Family History Mother Diabetes Hypertension Father Cancer prostate Other CVA (cerebral vascular accident) Surgical History History of open heart surgery S/P hernia repair S/P total knee replacement (08/08/23) History of umbilical hernia repair Hx of laparoscopy Status post bilateral hernia repair History of colonoscopy (11/25/19) History of hemorrhoidectomy History of left heart catheterization (07/21/17) Presence of permanent cardiac pacemaker (12/01/17) History of cardioversion (06/11/18) History of cardiac radiofrequency ablation (08/24/18) Social History household members: spouse Smoking Status: Former smoker how long ago did patient quit smokin alcohol intake: current alcohol intake frequency: holidays/special occasions only substance use type: does not use caffeine: Yes Type: carbonated beverages Number of servings: 5 and coffee ROS ROS ED Constitutional Constitutional ED: Denies chills, fever(s) or sweats ENT ENT ED: Denies sore throat Cardiovascular Cardiovascular: Denies chest pain, leg edema, palpitations or racing heartbeat Respiratory/Chest Respiratory/Chest: Reports cough, dyspnea and other Details: Wheeze ; Denies dyspnea on exertion Gastrointestinal Gastrointestinal: Denies abdominal pain, diarrhea, nausea or vomiting Genitourinary Genitourinary ED: Denies dysuria, hematuria or urinary frequency Musculoskeletal Musculoskeletal: Denies back pain, extremity pain or neck pain Integumentary Denies rash or wounds Neurologic Neurologic: Denies headache(s), paresthesias or weakness EXAM Physical Exam Const Vital Signs: 08/13/24 11:35 08/13/24 11:47 08/13/24 11:57 Temperature 97.4 F L Temperature Source Oral Pulse Rate 60 60 Respiratory Rate 24 H 17 Respiratory Effort Short of Breath Labored Respiratory Pattern Tachypnea Normal Blood Pressure 159/67 H Blood Pressure Mean 97 Pulse Ox 94 Oxygen Delivery Method Room Air Room Air 08/13/24 12:32 08/13/24 13:06 Temperature 98.1 F Temperature Source Pulse Rate 60 60 Respiratory Rate 21 H 15 Respiratory Effort Respiratory Pattern Blood Pressure 121/59 H 141/55 H Blood Pressure Mean 79 83 Pulse Ox 98 96 Oxygen Delivery Method Room Air Positive well nourished and well developed Constitutional Narrative: Speaking in full sentences General Appearance ED: well developed and NAD HEENT Reports moist mucous membranes normocephalic and atraumatic Eyes General Eye ED: Yes normal appearance of both eyes Neck full ROM Chest Wall Chest: Negative for tenderness Resp Resp Narrative: Mild expiratory wheeze Effort and Inspection: symmetric chest movement; Negative for respiratory distress Cardio regular rate, regular rhythm and no murmurs Peripheral Pulses: pulses 2+ throughout GI normal to inspection, nondistended, normoactive bowel sounds and non-tender Palpation: Negative for guarding or rebound tenderness present Extremity normal to inspection General Extremety ED: Negative for edema or tenderness General Extremity: Negative for edema Neuro oriented x3 and no sensory deficits noted Sensorium / Orientation: awake and alert Skin no rashes or lesions noted and no wounds MDM MDM MDM Narrative Medical decision making narrative: Interventions / MDM: Differential diagnosis: Asthma exacerbation, pneumonia. Chronic anticoagulation Diagnosis considered but do not suspect: Pulmonary embolus however chronic anticoagulation with compliance. ACS however EKG paced rhythm, normal heart cath a year ago. My EKG interpretation: AV paced rhythm rate of 60 no acute findings. Imaging independently reviewed and interpreted by myself: 2 view chest x-ray: Right lower lobe infiltrate, effusion per radiology. External documents reviewed: Cardiology note from April 2024. Sick sinus syndrome pacemaker, paroxysmal A-fib. He had a normal heart cath from his report from 2023 of his coronary arteries. Test considered but not ordered:N/A ED course: Asthma increasing cough with wheeze. EKG paced rhythm with history of sick sinus syndrome.. Chest x-ray DuoNeb ordered Solu-Medrol. Basic labs. Labs stable x-ray concerning for infiltrate. Clinically improving with treatment. Ambulated pulse ox remained at 93% and clinically felt better. Started on cefdinir antibiotic continued on prednisone. He has nebulizer at home. Discussed strict return precautions. All questions were answered. Re-evaluation: stable Disposition discussed with patient/family/significant other: Patient Case discussed with consulting clinician: N/A This note was generated with [employer] dictation software. It may contain incorrect words, spelling, and punctuation that were not noted in checking the note before signing. Lab Data Attestation: I reviewed the patient's lab results. Labs: Laboratory Results - last 24 hr 08/13/24 11:46 WBC 6.2 RBC 4.60 Hgb 12.3 L Hct 38.9 L MCV 84.6 MCH 26.7 L MCHC 31.6 L RDW Std Deviation 46.9 H RDW Coeff of Mar 15.3 H Plt Count 189 MPV 10.7 Immature Gran % (Auto) 0.600 Neut % (Auto) 59.6 Lymph % (Auto) 20.3 Elbert % (Auto) 12.1 H Eos % (Auto) 6.1 H Baso % (Auto) 1.3 H Absolute Neuts (auto) 3.7 Absolute Lymphs (auto) 1.26 Nucleated RBC % 0 Sodium 140 Potassium 4.3 Chloride 105 Carbon Dioxide 25.9 Anion Gap 9 BUN 19 Creatinine 1.05 Estim Creat Clear Calc 100.31 Est GFR (MDRD) Non-Af 78 BUN/Creatinine Ratio 18.5 Glucose 125 H Calcium 9.3 Radiography Diagnostic Testing: Clinical Impression(s) from Imaging Studies Chest X-Ray 08/13/24 12:00 IMPRESSION: Cardiomegaly with pulmonary congestion and edema. Superimposed pneumonia cannot be excluded. 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 Instructions: ED Asthma, Acute (Adult), ED Pneumonia (Adult) Prescriptions: New prednisone 20 mg tablet 60 mg PO DAILY Qty: 15 0RF cefdinir 300 mg capsule 300 mg PO Q12H Qty: 14 0RF No Action lisinopril 20 mg tablet 20 mg PO DAILY cholecalciferol (vitamin D3) 50 mcg (2,000 unit) capsule 50 mcg PO DAILY furosemide 40 mg tablet 20 mg PO QDAY acetaminophen 325 mg capsule 325 mg PO ONCE PRN empagliflozin 25 mg tablet 12.5 mg PO QAM diclofenac sodium [Voltaren Arthritis Pain] 1 % gel 2 g topical ONCE PRN Rx Instructions: apply to bilateral shoulders potassium gluconate 595 mg (99 mg) tablet 595 mg PO QDAY metoprolol succinate 50 mg tablet extended release 24 hr 50 mg PO QDAY Qty: 90 3RF albuterol sulfate 1 INHALER inhaler 2 puff INHALATION Q6H PRN PRN (Reason: Wheezing/SOB) Patient Comments: Wheezing/SOB tadalafil 5 mg tablet 5 mg PO DAILY Patient Comments: Take 1 tablet by mouth every morning. rivaroxaban 20 mg tablet 20 mg PO QHS Rx Instructions: administer with evening meal eplerenone [Inspra] 25 mg tablet 12.5 mg PO DAILY Qty: 30 1RF [facility] [Primary Care Provider] - 1-2 Weeks Activity Restrictions/Additional Instructions: X-ray with pneumonia. Labs are stable. Take and finish antibiotics prescribed. Take prednisone and finish. Use your inhalers for wheezing. You develop any worsening symptoms, return for reevaluation otherwise follow-up with your doctor. Print Language: Armenian Disposition Disposition: Home, Self Care Discharge Date/Time: 08/13/24 13:14
--- NOTE | 2024-08-13 12:00 | RAD_ITS ---
EXAM: XR Chest, 2 Views CLINICAL INDICATION: COUGH TECHNIQUE: Frontal and lateral views of the chest. COMPARISON: No relevant prior studies available. FINDINGS: LUNGS AND PLEURAL SPACES: See below. HEART: Cardiomegaly with pulmonary congestion and edema. Superimposed pneumonia cannot be excluded. MEDIASTINUM: Unremarkable. Normal mediastinal contour. BONES/JOINTS: Unremarkable. No acute fracture. TUBES, LINES AND DEVICES: Left-sided cardiac pacemaker. RAD/Chest PA and Lateral IMPRESSION: Cardiomegaly with pulmonary congestion and edema. Superimposed pneumonia cannot be excluded. Reading [facility]
[2024-08-13 12:03] LABS: Absolute Lymphocyte Count 1.26 X10^3/uL (0.83-4.51); Absolute Neutrophil Count 3.7 X10^3/uL (2.0-7.7); Basophil# 0.08 X10^3/uL; Basophil% 1.3 % (0-1); Eosinophil# 0.38 X10^3/uL; Eosinophils% 6.1 % (0-5); Hematocrit 38.9 % (40-54); Hemoglobin 12.3 g/dL (13.0-16.5); Lymphocyte # 1.26 X10^3/ul (0.83-4.51); Lymphocyte % 20.3 % (19-41); Mean Corp Hgb Conc 31.6 g/dL (32-36); Mean Corpuscular Hgb 26.7 pg (27.0-32.0); Mean Corpuscular Volume 84.6 fL (80-94); Mean Platelet Vol. 10.7 fl (6.2-12.0); Monocyte# 0.75 X10^3/uL; Monocyte% 12.1 % (0-10); NRBC Flagged by Analyzer 0 % (0-5); Neutrophil # 3.69 X10^3/uL (2.7-7.7); Neutrophil % 59.6 % (47-70); Platelet Count 189 K/mm3 (150-450); RBC Distribution Width CV 15.3 % (11.6-14.6); RBC Distribution Width SD 46.9 fl (35.1-43.9); White Blood Count 6.2 K/mm3 (4.4-11.0)
[2024-08-13 12:21] LABS: Anion Gap 9 (5-15); BUN 19 mg/dL (4-19); BUN/Creat Ratio 18.5 RATIO (10-20); Calcium,Total 9.3 mg/dL (7.6-11.0); Carbon Dioxide 25.9 mmol/L (21.0-32.0); Chloride 105 mmol/L (98-108); Creatinine, Serum 1.05 mg/dL (0.70-1.20); EST Glomerular Filtration Rate 78 (>60); Estimated Creatinine Clearance 100.31 ml/min (50-250); Glucose 125 mg/dL (70-99); Potassium 4.3 mmol/L (3.3-5.1); Sodium Level 140 mmol/L (133-145)
[2024-08-13 12:32] VITALS: BP 121/59; PULSE 60; RESP 21; O2SAT 98
[2024-08-13 12:38] VITALS: O2SAT 95
[2024-08-13 13:06] VITALS: BP 141/55; PULSE 60; RESP 15; TEMP 36.7; O2SAT 96
[2024-08-13] MEDS: Cefdinir 300 MG Capsule PO (13:09)
== END 2024-08-13 13:14 | disposition home or self-care (01) ==
PROVIDERS: Emergency Provider Emergency Medicine; Visit Provider Emergency Medicine
DX: R06.02 Shortness of breath (principal); I50.32 Chronic diastolic (congestive) heart failure; I11.0 Hypertensive heart disease with heart failure; I48.0 Paroxysmal atrial fibrillation; J18.9 Pneumonia, unspecified organism; J45.901 Unspecified asthma with (acute) exacerbation; Z79.01 Long term (current) use of anticoagulants; Z87.891 Personal history of nicotine dependence; Z95.0 Presence of cardiac pacemaker; Z79.899 Other long term (current) drug therapy; Z96.659 Presence of unspecified artificial knee joint
CPT/HCPCS: 71046; 80048; 85025; 93005; 94640; 96374; 99283; A4216

== ENCOUNTER → 2024-09-18 | Outpatient (CLI) | payer MEDICARE, BC, SELFPAY ==
[2024-09-18 14:07] LABS: Anion Gap 10 (5-15); BUN 26 mg/dL (4-19); BUN/Creat Ratio 28.2 RATIO (10-20); Calcium,Total 9.4 mg/dL (7.6-11.0); Carbon Dioxide 24.3 mmol/L (21.0-32.0); Chloride 107 mmol/L (98-108); Creatinine, Serum 0.92 mg/dL (0.70-1.20); EST Glomerular Filtration Rate 91 (>60); Glucose 95 mg/dL (70-99); Potassium 4.1 mmol/L (3.3-5.1); Pro- Brain NATRIURETIC PEPTIDE 538 pg/mL (<=900); Sodium Level 141 mmol/L (133-145)
== END | disposition home or self-care (01) ==
LOC: LAB 12:40
PROVIDERS: Referring Provider Nurse Practitioner Family; Visit Provider Nurse Practitioner Family
DX: R06.09 Other forms of dyspnea (principal); Z95.0 Presence of cardiac pacemaker; Z98.890 Other specified postprocedural states
CPT/HCPCS: 36415; 80048; 83880

== ENCOUNTER → 2024-10-24 | Outpatient (CLI) | payer MEDICARE, BC, SELFPAY | END | disposition home or self-care (01) | LOC: CVS 08:54 | PROVIDERS: Referring Provider Nurse Practitioner Family; Visit Provider Nurse Practitioner Family | DX: R06.02 Shortness of breath (principal); Z98.890 Other specified postprocedural states | CPT/HCPCS: 93306; Q9957; A4216; C8929 ==

== ENCOUNTER 2025-01-25 10:46 | Inpatient (IN) | payer MEDICARE, BC, SELFPAY ==
[2025-01-25] VITALS (13 sets, daily range): BP systolic 110–155; BP diastolic 50–100; PULSE 57–69; RESP 15–98; TEMP 36.2–37; O2SAT 22–97; BMI 42.4
--- NOTE | 2025-01-25 10:54 | EKG12_ITS ---
Test Reason : Blood Pressure : */* mmHG Vent. Rate : 60 BPM Atrial Rate : 60 BPM P-R Int : 178 ms QRS Dur : 178 ms QT Int : 464 ms P-R-T Axes : * 190 46 degrees QTcB Int : 464 ms AV dual-paced rhythm Abnormal ECG Confirmed by LAISHA UGALDE, REI ([id number]), online content editor HILTON TEMPLE ([id number]) on 01/27/2025 8:28:38 AM Referred By: Confirmed By: REI INTERIANO MD
--- NOTE | 2025-01-25 10:54 | RAD_ITS ---
PROCEDURE: CHEST PA AND LATERAL 01/25/2025 REASON FOR EXAM: CHEST PAIN TECHNIQUE: Procedure Code: RADCXR Modality: DX Procedure: CHEST PA AND LATERAL COMPARISON: 08/13/2024 FINDINGS: LINES: Left-sided pacemaker device with right atrial and right ventricular leads. LUNGS AND PLEURA: No focal airspace consolidation. No pleural effusion or pneumothorax. HEART AND MEDIASTINUM: The cardiac silhouette is mildly enlarged. The mediastinal contour is normal. Median sternotomy wires and an AtriClip are present. PULMONARY VESSELS: Mild prominence of the central pulmonary vasculature. BONES: No acute osseous abnormality. RAD/Chest PA and Lateral IMPRESSION: Cardiomegaly with mild vascular congestion. Reading Location: [id number]
--- NOTE | 2025-01-25 11:02 | EDS_ITS ---
HPI History of Present Illness Chief Complaint: Shortness of Breath Informant: patient and spouse/S.O. Onset/Context/Timing Onset: Days Context: gradual Timing: Continuous Quality: Positive for Wheezing Current Severity: Moderate Maximum Severity: Moderate Worsened by: Exertion and Coughing Relieved by: Nothing Associated Symptoms cough Chest Pain: Positive for None Narrative Narrative: 69-year-old male history of asthma, A-fib on Xarelto with pacemaker prior valve replacement with a pig valve. An open heart surgery. States has been short of breath last few days. Nonproductive cough. Afebrile. No chest pain. States she is wheezing. Denies any leg swelling. PE Risk Factors: Negative for Cancer, OCP + Smoking + > 35, Prior DVT or PE, Recent immobilization, Recent surgery or Recent travel Prior similar symptoms: Yes Recent Illness/Hospitalization: No PFSH PFSH Medical History History of pacemaker Wears hearing aid Wears glasses PTSD (post-traumatic stress disorder) Anxiety Arthritis Vertigo Former smoker CPAP (continuous positive airway pressure) dependence History of pain when walking History of stress test Hypertension History of echocardiogram Cardiology follow-up encounter History of atrial fibrillation Acute posterior anal fissure Hemorrhoids, internal, with bleeding Paroxysmal atrial fibrillation Secondary pulmonary arterial hypertension Essential (primary) hypertension Chronic diastolic (congestive) heart failure Asthma Sick sinus syndrome Atypical atrial flutter Bradycardia Morbid obesity with BMI of 40.0-44.9, adult Home Medications ?Medication ?Instructions ?Recorded ?Last Taken ?Type albuterol sulfate 90 mcg/actuation 2 puff inhalation Q 6H PRN PRN 07/21/17 07/18/17 History aerosol inhaler Wheezing/SOB lisinopril 20 mg tablet 20 mg PO DAILY 05/23/1810/24 History tadalafil 5 mg tablet 5 mg PO DAILY 12/19/2211/18 History cholecalciferol (vitamin D3) 50 50 mcg PO DAILY Unknown History mcg (2,000 unit) capsule eplerenone 25 mg tablet (Inspra) 12.5 mg (1/2 x 25 mg) PO DAILY #30 11/13/23 Unknown Rx tabs acetaminophen 325 mg capsule 325 mg PO ONCE PRN fever or pain 02/14/24 Unknown History diclofenac sodium 1 % topical gel 2 g topical ONCE PRN Arthritis Pain 02/14/24 Unknown History (Voltaren Arthritis Pain) empagliflozin 25 mg tablet 12.5 mg PO QAM 02/14/24 Unk nown History potassium gluconate 595 mg (99 mg) 595 mg PO QDAY 01/23 12/15 Unknown History tablet metoprolol succinate 50 mg 50 mg PO QDAY #90 tabs 02/23 Unknown Rx tablet,extended release 24 hr amoxicillin 500 mg capsule 2,000 mg PO ONCE PRN . 08/23 12/16 Unknown History rivaroxaban 20 mg tablet 20 mg PO QDAY 09/18/24 Unkno wn History furosemide 20 mg tablet 20 mg PO QAM 01/13/25 Unknow n History Allergy/AdvReac Type Severity Reaction Status Date / Time Environmental Allergies: Allergy wheezing, Verified 01/25/25 10:47 Uncoded (hay fever) cough Family History Mother Diabetes Hypertension Father Cancer prostate Other CVA (cerebral vascular accident) Surgical History History of open heart surgery S/P hernia repair S/P total knee replacement (08/08/23) History of umbilical hernia repair Hx of laparoscopy Status post bilateral hernia repair History of colonoscopy (11/25/19) History of hemorrhoidectomy History of left heart catheterization (07/21/17) Presence of permanent cardiac pacemaker (12/01/17) History of cardioversion (06/11/18) History of cardiac radiofrequency ablation (08/24/18) Social History household members: spouse Smoking Status: Former smoker how long ago did patient quit smokin alcohol intake: current alcohol intake frequency: holidays/special occasions only substance use type: does not use caffeine: Yes Type: carbonated beverages Number of servings: 5 and coffee ROS ROS ED ROS Narrative Short of breath. Wheezing. Mild nonproductive cough. No chest pain. No fever or chills. Constitutional Constitutional ED: Denies chills or fever(s) Eyes Eyes: Denies blurry vision ENT ENT ED: Denies ear pain Cardiovascular Cardiovascular: Denies chest pain Respiratory/Chest Respiratory/Chest: Reports cough and dyspnea Gastrointestinal Gastrointestinal: Denies abdominal pain Genitourinary Genitourinary ED: Denies dysuria or hematuria Musculoskeletal Musculoskeletal: Denies arthralgias Integumentary Denies abscess Neurologic Neurologic: Denies headache(s) Psychiatric Psychiatric: Denies anxiety Endocrine Endocrinology: Denies cold intolerance Hematologic/Lymphatic Hematologic/Lymphatic: Denies lymphadenopathy Allergic/Immunologic Allergic/Immunologic ED: Denies mouth swelling, tongue swelling or urticaria EXAM Physical Exam Narrative Exam Narrative: 69-year-old male sitting upright in bed. Vital signs are stable he is afebrile with pulse ox 96% on room air no hypoxia. He is actively wheezing. Mildly labored breathing. at bedside. H EENT exam pupils round react light. Moist membranes. Neck nontender no JVD. No lymphadenopathy. Lungs expiratory wheezing. No rales or rhonchi. Equal symmetrical. Prolonged expiratory phase. Heart rate about 60 no murmur. Chest wall ribs nontender. Abdomen soft nontender. Moving all 4 extremities. Normal strength. Calves are nontender without edema or cords. Neurologically is awake and alert. Answering questions following commands. Back nontender. Const Vital Signs: 01/25/25 10:47 01/25/25 11:00 01/25/25 11:00 Temperature 97.8 F Temperature Source Temporal Pulse Rate 59 L 62 Respiratory Rate 30 H 18 Respiratory Pattern Tachypnea Blood Pressure 155/69 H Blood Pressure Mean 97 Pulse Ox 96 94 Oxygen Delivery Method Room Air Nasal Cannula Oxygen Flow Rate (L/min) 2 01/25/25 11:28 01/25/25 12:00 Temperature Temperature Source Pulse Rate 60 Respiratory Rate 18 Respiratory Pattern Blood Pressure 110/50 L Blood Pressure Mean 70 Pulse Ox 95 Oxygen Delivery Method Nasal Cannula Oxygen Flow Rate (L/min) MDM MDM MDM Narrative Medical decision making narrative: 69-year-old male with wheezing and nonproductive cough this could be a viral illness causing of bronchospasm versus rule out pneumonia versus cardiac etiology such as CHF. Undergo cardiac workup. Due to his wheezing, given IV Solu-Medrol and DuoNeb and albuterol aerosols. Repeat exam patient's breathing is better at the aerosols and Solu-Medrol. Given his chest x-ray and labs I do think he has pulmonary edema may be from congestive heart failure. He will be given IV Lasix. I discussed with both he and his admission. They are comfortable with the plan. I spoke to the hospitalist. He will be admitted to the PCU. History & Record Review Discussion w/independent historian: Patient and Family Additional record(s) reviewed:: Prior inpatient record, Prior outpatient record, Prior ED visit and Prior labs Lab Data Attestation: I reviewed the patient's lab results. Lab results narrative: CBC shows a normal white count of 6.5. H&H 13 and 41. Platelets 204. Electrolytes show a gap of 11. Normal BUN and creatinine of 16 and 0.9. Glucose 101. Troponins mildly elevated at 52 and his BNP is elevated at 420. Chest x-ray is consistent with congestive heart failure. Labs: Laboratory Results - last 24 hr 01/25/25 11:06 WBC 6.5 RBC 4.77 Hgb 13.1 Hct 41.2 MCV 86.4 MCH 27.5 MCHC 31.8 L RDW Std Deviation 45.3 H RDW Coeff of Mar 14.2 Plt Count 204 MPV 10.2 Immature Gran % (Auto) 0.200 Neut % (Auto) 59.5 Lymph % (Auto) 19.7 [place] % (Auto) 12.1 H Eos % (Auto) 7.3 H Baso % (Auto) 1.2 H Absolute Neuts (auto) 3.9 Absolute Lymphs (auto) 1.27 Nucleated RBC % 0 Sodium 144 Potassium 4.2 Chloride 108 Carbon Dioxide 25.2 Anion Gap 11 BUN 16 Creatinine 0.96 Est GFR (MDRD) Non-Af 87 BUN/Creatinine Ratio 17.2 Glucose 101 H Calcium 9.6 Troponin T High Sens 52 H NT pro BNP II 420 Radiography Chest X-Ray - ED: 2 View, Read by ED Physician, Read by Radiologist, Mediastinum, Bony Structures, Chronic Changes, Cardiomegaly and CHF Diagnostic Testing: Clinical Impression(s) from Imaging Studies Chest X-Ray 01/25/25 10:54 IMPRESSION: Cardiomegaly with mild vascular congestion. Reading Location: [facility] Chest x-ray, 2 views, AP and lateral, interpreted by myself and radiology shows cardiomegaly with pulmonary edema consistent with CHF. Rhythm Strip Rhythm Strip: Paced Rate: 60 Ectopy: None EKG Initial EKG: Attestation: I personally reviewed and interpreted this EKG as follows: Interpretation: Paced Comments: Paced rhythm rate of 60. Discharge Plan Dx/Rx/DC Orders Clinical Impression: Acute dyspnea, Congestive heart failure, Pacemaker, S/P mitral valve repair, S/P tricuspid valve repair, S/P Maze operation for atrial fibrillation, Chronic anticoagulation Disposition Disposition: Acute Care Hospital [facility]
[2025-01-25] MEDS: Albuterol 2.5 MG/3 ML VIAL.NEB. INHALATION (11:12)
[2025-01-25 11:13] LABS: Hematocrit 41.2 % (40-54); Hemoglobin 13.1 g/dL (13.0-16.5); Immature Granulocytes Count 0.010 X10^3/uL (0.0-0.0); Mean Corp Hgb Conc 31.8 g/dL (32-36); Mean Corpuscular Volume 86.4 fL (80-94); Mean Platelet Vol. 10.2 fl (6.2-12.0); NRBC Flagged by Analyzer 0 % (0-5); Platelet Count 204 K/mm3 (150-450); RBC Distribution Width CV 14.2 % (11.6-14.6); RBC Distribution Width SD 45.3 fl (35.1-43.9); Red Blood Count 4.77 M/mm3 (4.6-6.2); White Blood Count 6.5 K/mm3 (4.4-11.0)
--- OUTSIDE RECORDS SUMMARY | 2025-01-25 11:32 | XMS RPT_ITS | CCD ---
Author Organization [facility]ini[facility] Care Team Providers Care Supervisor Anodizing Name Role Phone Anabelle Ervin Unavailable Radha, Birdie Yue Unavailable Unavailable XELLER, JANI F Unavailable Unavailable XELLER, JANI F Unavailable Unavailable NO REFERRING Unavailable Unavailable Birdie Garcia Unavailable Unavailable NAEL LAN Attending Unavailabl e SCHINNER, EVELYN Primary Care Unavailable NAEL LAN Admitting Unavailabl e KALEDNA LAZO Referring Unavailabl e AUGOSTINI, RSA PHIL Attending Unavailable YOONEVELYN LOZADA Primary Care Unavailable EDNA HEART Referring Unavailabl e AUGOSTINI, RSA PHIL Attending Unavailable YOON, EVELYN Primary Care Unavailable Dr. Asad Mcdonough Emergency [place] [place] Primary Care Provider UnavailDr. Jerardo Lozoya Attending Provider Dr. Jerardo Millan Other Provider Dr. Jerardo Millan Admit Provider Dr. Juana Rodriguez Other Provider KEVEN Neri Attending Provider Dr. Juana Rodriguez Attending Provider Dr. Asad Mcdonough Emergency [place] [place] Primary Care Provider UnavailDr. Jerardo Lozoya Attending Provider Dr. Jerardo Millan Other Provider Dr. Jerardo Millan Admit Provider Dr. Juana Rodriguez Other Provider KEVEN Neri Attending Provider Dr. Juana Rodriguez Attending Provider Dr. Jerardo Millan Referring Provider [phone] [facility] Doctor, Out of Primary Care Provider Kyung amos [facility] Doctor, Out of Referring Provider Unavailab Dr. Sherif Shabazz Other Provider PROVIDER, UNKNOWN Attending Unavailable PROVIDER, UNKNOWN Admitting Unavailable CHELSIE NIEVES Referring Unavailable Kiya UGALDE, Phillip Griffiths Unavailable Nilskellie UGALDE, Omer S Unavailable Nilskellie UGALDE, Omer S Primary Care Provider Moiz Koenig MD Unavailable Unavailable Primary Care Provider Unavailabl e NILS, OMER S Primary Care Unavailable SROUBEK, [...] MADSEN Attending Unavailable CYRUS GRIMM Referring Unavailable NILS, OMER S Primary Care [...] Care Unavailable GILLINOV, A TUNDE Referring Unavailable MOIZ KOENIG Attending Unavailable NILS, OMER S Primary Care Unavailable GILLINOV, A TNUDE Attending Unavailable GILLINOV, A TUNDE Admitting Unavailable GILLINOV, A TUNDE Referring Unavailable NILS, OMER S Primary Care Unavailable Phillip DIAMOND Referring Unavailable NILS, OMER S Primary Care Unavailable TAVODAILY JASONUB Referring Unavailable NILS, OMER S Primary Care Unavailable Nils UGALDE, Dr. Tello Attending Provider [phone] Nils UGALDE, Dr. Tello Referring Provider [phone] Marlene ROMEO, Dr. Foote Attending Provider [phone] Marlene ROMEO, Dr. Foote Emergency Provider [phone] [facility]ailabl [facility] Referring Provider Unavailable Roof SENIOR ARCHITECT/DESIGN MANAGER-C, Evelyn H Attending Provider [phone] Roof SENIOR ARCHITECT/DESIGN MANAGER-C, Evelyn H Referring Provider [phone] Nils UGALDE, Dr. Tello Attending Provider [phone] Dr. Omer Wray MD Referring Provider [phone] Denny Cifuentes MD Unavailable DENNY CIFUENTES Attending Unavailable NILS, MOER S Primary Care Unavailable Brittany Bundy MD Unavailable Luis Mayorga MD Unavailable Ann Lam [facility] Provider Unavailabl e Nils, [place] Referring Unavailable Nils, Omer Attending [facility] Unavailable Roof SENIOR ARCHITECT/DESIGN MANAGER, Evelyn H Attending [facility] Ref[facility] Unavailable Nils, Omer Attending Unavailable Nils, Omer Referring [facility] Unavailable Roof SENIOR ARCHITECT/DESIGN MANAGER, Evelyn H Attending [facility] Referring [facility] Unavailable Nils, Omer Attending [facility] Unavailable Nils, [place] Referring [facility] Unavailable Qamar Rosario Attending [facility] Unavailable Qamar Rosario Attending Unavailable Roof SENIOR ARCHITECT/DESIGN MANAGER, Evelyn H Attending Unavailable Roof SENIOR ARCHITECT/DESIGN MANAGER, Evelyn H Referring [facility] Unavailable Nils, Omer Attending [facility] Unavailable Jolene Larkin Attending [facility] Ref[facility] Unavailable Nils, Omer Attending Unavailable Nils, [place] Referring [facility] Unavailable Nils, [place] Attending Unavailable Roof SENIOR ARCHITECT/DESIGN MANAGER, Evelyn H Attending [facility] Ref[facility] Unavailable Roof SENIOR ARCHITECT/DESIGN MANAGER, Evelyn H Attending Unavailable Roof SENIOR ARCHITECT/DESIGN MANAGER, Evelyn H Referring [facility] Unavailable Roof SENIOR ARCHITECT/DESIGN MANAGER, Evelyn H Referring Unavailable Roof SENIOR ARCHITECT/DESIGN MANAGER, Evelyn H Attending [facility] Unavailable Roof SENIOR ARCHITECT/DESIGN MANAGER, Evelyn H Referring Unavailable Roof SENIOR ARCHITECT/DESIGN MANAGER, Evelyn H Attending [facility] Unavailable Roof SENIOR ARCHITECT/DESIGN MANAGER, Evelyn H Attending Unavailable Roof SENIOR ARCHITECT/DESIGN MANAGER, Evelyn H Referring [facility] Unavailable Nils, [place] Attending Unavailable Nils, Omer Referring [facility] Unavailable Nils, [place] Attending Unavailable Nils, Omer Referring [facility] Unavailable Nils, Omer Attending Unavailable Nils, Omer Referring Unavailable Nils, Omer Referring Unavailable Nils, Omer Attending [facility] Unavailable Nils, [place] Attending Unavailable Nils, [place] Referring [facility] Unavailable Nils, Omer Referring Unavailable Nils, Omer Attending [facility] Unavailable Roof SENIOR ARCHITECT/DESIGN MANAGER, Evelyn H Attending [facility] Referring [facility] Unavailable Roof SENIOR ARCHITECT/DESIGN MANAGER, Evelyn H Attending [facility] Physician Unavailab Abdiel UGALDE, Dr. Tello Attending Physician Roof SENIOR ARCHITECT/DESIGN MANAGER-C, Evelyn Hernandez Attending Physician Roof SENIOR ARCHITECT/DESIGN MANAGER-C, Evelyn H Referring Provider [facility] [place] Primary Care Physician UnavailDr. Omer Ramos MD Referring Provider [facility] [place] Referring Provider Unavailable Jolene Larkin Attending Physician Unavailable Allergies Allergy Classification Reported Allergen(s) Allergy Type Date of Onset Reaction(s) Facility (18 sources) hydroCHLOROthiazide; Translations: [HYDROCHLOROTHIAZIDE] Drug Allergy 022 Other: See Comments [facility] (18 sources) Pollen; Translations: [POLLEN EXTRACTS] Drug Allergy 024 Itching [facility] (18 sources) Influenza Virus Vaccines; Translations: [INFLUENZA VIRUS VACCINES] Drug Allergy Other: See Comments [facility] (2 sources) hydroCHLOROthiazide Drug Allergy Other [facility] (2 sources) Influenza Vaccines Drug Allergy Other [facility] (2 sources) redtop grass pollen extract Drug Allergy Itching [facility] (2 sources) sildenafil Drug Allergy [facility] (1 source) Allergic rhinitis due to pollen Allergy to substance (disorder) [facility] (1 source) Environmental Allergies: Uncoded; Translations: [Environmental Allergies: Uncoded] Propensity to adverse reactions (disorder) [facility] Medications Current Medications Medication Drug Class(es) Dates Sig (Normalized) Sig (Original) acetaminophen 325 mg oral capsule (14 sources) Start: 02-14-2024 take 1 capsule by mouth once as needed Start: 01-29-2024 take 325-650 mg by m outh every four hours as needed acetaminophen (TYLENOL) 325 mg tablet Take 1-2 tablets by mouth every 4 hours as needed for pain. 01/29/2024 Active albuterol 0.83 mg/ml inhalation solution (20 sources) beta2-Adrenergic Agonist Start: 10-30-2023 albut jerzy (PROVENTIL) 2.5 mg /3 mL (0.083 %) nebulizer solution Inhale as instructed every 4 hours as needed. 10/30/2023 Active Start: 07-21-2017 Start: 07-21-2017 Albuterol Sulf ate 1 INHALER inhaler Active 2 NMA INHALATION EVERY 6 HOURS NEEDED as needed for Wheezing/SOB July 21, 2017 12:00am Start: 07-21-2017 take 1 puff(s) by in halation every six hours as needed Albuterol Sulfate Active 2 PUFF INHALATION EVERY 6 HOURS NEEDED July 20, 2017 11:00pm Start: 07-21-2017 take 1 puff(s) by in halation every six hours as needed Albuterol Sulfate Active 2 PUFF INHALATION EVERY 6 HOURS NEEDED July 21, 2017 12:00am Start: 07-12-2010 ALBUTEROL SULF ATE NEBU 90 Mcg/inh as needed ALBUTEROL SULFATE NEBU [id number] Jen Page take 2 puff(s) by in halation three times daily albuterol sulfate HFA 90 mcg/actuation aerosol inhaler Inhale 2 puff using inhaler three times a day active Ana Rosa [facility] take 2 puff(s) by in halation every six hours as needed albuterol 108 (90 Base) MCG/ACT inhaler Inhale 2 puffs every 6 hours as needed. Active 120 actuat albuterol 0.1 mg/actuat / ipratropium bromide 0.02 mg/actuat inhalation spray (17 sources) Anticholinergic, beta2-Adrenergic Agonist Start: 12-12-2023 ipratropium 20 mcg-albuterol 100 mcg (COMBIVENT RESPIMAT) 20-100 mcg/actuation inhaler Inhale as instructed every 4 hours as needed. 12/12/2023 Active amoxicillin 500 mg oral capsule (20 sources) Penicillin-class Antibacterial Start: 01-13-2024 take 4 capsules by mouth once as needed 28 actuat budesonide 0.16 mg/actuat / formoterol fumarate 0.0048 mg/actuat / glycopyrrolate 0.009 mg/actuat metered dose inhaler (1 source) Corticosteroid, beta2-Adrenergic Agonist take 2 puff(s) by inhalation twice daily Breztri Aerosphere 160 mcg-9mcg-4.8mcg/a ctuation HFA aerosol inhaler Inhale 2 puff using inhaler twice a day active Ana Rosa Robersonunm [facility] cholecalciferol 0.05 mg oral capsule (20 sources) Vitamin D Start: 10-27-2023 take 1 capsule by mouth once daily Start: 08-15-2023 take 1 tablet by once daily cholecalciferol (VITAMIN D3) 50 mcg (2,000 unit) tablet Take 50 mcg by mouth once daily. 08/15/2023 Active diclofenac sodium 0.01 mg/mg topical gel (20 sources) Nonsteroidal Anti-inflammatory Drug Start: 02-14-2024 diclofenac (VOLT AREN ARTHRITIS PAIN) 1 % topical gel Apply 2 g to affected area as needed. Active docusate sodium 50 mg / sennosides, fci 8.6 mg oral tablet (5 sources) Start: 01-29-2024 take 1 tablet by mouth every twelve hours as needed senna-docusate (SENNA-S) 8.6-50 mg per tablet Take 1 tablet by mouth two times a day as needed for constipation. 01/29/2024 Active empagliflozin 25 mg oral tablet (20 sources) Sodium-Glucose Cotransporter 2 Inhibitor Start: 02-14-2024 take 1 tablet by mouth once daily in the morning Start: 11-13-2023 End: 02-14-2024 take 1 tablet by mouth once daily Empagliflozin (Jardiance) 10 mg tablet Discontinued 10 mg PO DAILY 30 November 13, 2023 12:00am February 14, 2024 9:17am Start: 11-01-2023 empagliflozin (JARDIANCE) 25 mg tablet Take 12.5 mg by mouth daily with breakfast. 11/01/2023 Active take 0.5 tablet by m outh once daily Jardiance 25 mg tablet 1/2 tablet by mouth once a day active Mary Jo Escobar [facility] eplerenone 25 mg oral tablet (20 sources) Aldosterone Antagonist Start: 11-13-2023 take 1 tablet by mouth once daily Start: 11-01-2023 eplerenone (IN SPRA) 25 mg tablet Take 12.5 mg by mouth once daily. 11/01/2023 Active take 0.5 tablet by m outh once daily eplerenone 25 mg tablet take 1/2 tablet by mouth once daily (Jardiance) active Luna Herring [facility] 12 hr fexofenadine hydrochloride 60 mg / pseudoephedrine hydrochloride 120 mg extended release oral tablet (2 sources) alpha-Adrenergic Agonist, Histamine-1 Receptor Antagonist Start: 08-12-2024 fexofenadine-pseudoephedrine ER (Apurva-D) 60-120 MG 12 hr tablet Take by mouth. 08/12/2024 Active fluticasone propionate 0.05 mg/actuat metered dose nasal spray (2 sources) Corticosteroid Start: 02-20-2024 fluticasone (Flonase) 50 MCG/ACT nasal spray Administer into affected nostril(s). 02/20/2024 Active furosemide 20 mg oral tablet (20 sources) Loop Diuretic Start: 01-13-2025 take 1 tablet by mouth once daily in the morning Start: 10-27-2024 End: 01-13-2025 take 2 tablets by mouth once daily in the morning Furosemide 20 mg tablet Discontinued 40 mg PO EVERY MORNING October 27, 2024 9:52am January 13, 2025 1:50pm Start: 05-15-2024 End: 09-18-2024 Furosemide 40 mg tablet Disc ontinued 20 mg PO daily May 15, 2024 11:34am September 18, 2024 11:59am Start: 03-01-2024 take 2 tablets by mo uth in the morning, then take 1 tablet by mouth in the evening furosemide (Lasix) 40 MG tablet Take 2 tablets by mouth in the morning, and then take 1 tablet in the evening 03/01/2024 Active Start: 02-19-2024 End: 05-15-2024 take 1 tablet by mouth once daily Furosemide 40 mg tablet Discontinued 40 mg PO daily May 15, 2024 10:18am May 15, 2024 11:35am Start: 02-14-2024 End: 02-19-2024 take 2 tablets by mouth in the morning, then take 1 tablet by mouth in the evening Furosemide 40 mg tablet Discontinued 40 mg PO .COMPLEX 60 3 February 14, 2024 4:49pm February 19, 2024 4:33pm 40 mg orally; 80mg in AM and 40mg in PM Start: 02-14-2024 End: 02-14-2024 take 1 tablet by mouth twice daily Furosemide 40 mg tablet Discontinued 40 mg PO TWICE A DAY 60 3 February 14, 2024 10:09am February 14, 2024 4:52pm Start: 05-06-2021 End: 10-27-2024 take 1 tablet by mouth once daily in the morning Furosemide 20 mg tablet Discontinued 20 mg PO EVERY MORNING September 18, 2024 12:00am October 27, 2024 9:53am Start: 05-24-2018 End: 03-24-2020 take 1 tablet by mouth once daily Furosemide (Lasix) 40 mg tablet Discontinued 40 mg PO DAILY 23 03May 28, 2019 11:49am March 24, 2020 6:04pm lisinopril 5 mg oral tablet (20 sources) Angiotensin Converting Enzyme Inhibitor Start: 01-30-2024 take 1 tablet by mouth once daily lisinopril (ZESTRIL) 5 mg tablet Indications: Primary hypertension Take 1 tablet by mouth once daily. 30 tablet 1 01/30/2024 Active Start: 05-23-2018 take 1 tablet by thai th once daily Start: 07-21-2017 End: 05-23-2018 take 1 tablet by mouth once daily Lisinopril 10 mg tablet Discontinued 10 mg PO DAILY 30 September 06, 2017 5:25pm May 23, 2018 3:34pm 24 hr metoprolol succinate 50 mg extended release oral tablet (20 sources) beta-Adrenergic Damian Start: 03-13-2024 take 1 tablet by mouth once daily Start: 03-01-2024 End: 03-13-2024 take 1 tablet by mouth twice daily Metoprolol Succinate 50 mg tablet extended release 24 hr Discontinued 50 mg PO TWICE A DAY 60 March 01, 2024 11:06am March 13, 2024 2:49pm Start: 10-23-2019 End: 03-01-2024 take 1 tablet by mouth once daily Metoprolol Succinate 50 mg tablet extended release 24 hr Discontinued 50 mg PO DAILY October 27, 2023 11:02am March 01, 2024 11:06am Start: 06-14-2019 End: 10-27-2023 take 1 tablet by mouth twice daily Metoprolol Succinate 50 mg tablet extended release 24 hr Discontinued 50 mg PO TWICE A DAY 180 June 14, 2021 3:06pm October 27, 2023 11:03am Start: 10-03-2018 End: 06-14-2019 take 1 tablet by mouth once daily Metoprolol Succinate 50 mg tablet extended release 24 hr Discontinued 50 mg PO DAILY 30 October 03, 2018 12:00am June 14, 2019 5:35pm Start: 12-13-2017 End: 05-23-2018 take 1 tablet by mouth once daily Metoprolol Succinate 25 MG tablet extended release 24 hr Discontinued 25 mg PO DAILY December 13, 2017 12:00am May 23, 2018 2:33pm Start: 08-02-2017 End: 12-05-2017 take 1 tablet by mouth once daily Metoprolol Succinate 25 mg tablet extended release 24 hr Discontinued 25 mg PO daily 90 3 September 05, 2017 2:43pm December 05, 2017 6:22pm Start: 07-20-2017 End: 07-20-2017 take 1 tablet by mouth twice daily Metoprolol Tartrate 25 mg tablet Discontinued 25 mg PO TWICE A DAY July 20, 2017 12:00am July 20, 2017 4:08pm oxyCODONE hydrochloride 5 mg oral tablet (13 sources) Opioid Agonist Start: 01-29-2024 End: 02-05-2024 take 1 tablet by mouth every six hours as needed for pain oxyCODONE IR (ROXICODONE) 5 mg immediate release tablet Indications: Postoperative pain Take 1 tablet by mouth every 6 hours as needed for pain for up to 7 days. 28 tablet 01/29/2024 02/05/2024 Active Start: 04-03-2023 End: 05-05-2023 take 1 tablet by mouth every six hours as needed for pain Oxycodone 5 mg tablet Discontinued 5 mg PO EVERY 6 HOURS as needed for pain 14 5 0 April 03, 2023 May 05, 2023 2:18pm Recurrent umbilical hernia Umbilical hernia without obstruction or gangrene Start: 12-20-2022 take 5 mg by mouth e very six hours as needed Oxycodone Active 5 MG PO EVERY 6 HOURS NEEDED 6 2 December 20, 2022 polyethylene glycol 3350 57699 mg powder for oral solution (5 sources) Osmotic Laxative Start: 01-29-2024 polyethylene glycol 3350 17 gram packet Take 1 Packet by mouth once daily as needed for constipation. Dissolve dose in 4 - 8 ounces of liquid and take as directed. 01/29/2024 Active potassium gluconate 2.5 meq oral tablet (20 sources) Start: 02-19-2024 take 1 tablet by mouth once daily Start: 07-21-2017 End: 12-05-2017 take 1 tablet by mouth once daily Potassium 99 MG tablet Discontinued 99 mg PO DAILY July 21, 2017 12:00am December 05, 2017 6:22pm Supplement pregabalin 75 mg oral capsule (3 sources) Start: 07-08-2024 take 1 capsule by mouth twice daily pregabalin (Lyrica) 75 MG capsule Take 75 mg by mouth 2 times daily. 07/08/2024 Active take 1 capsule by mouth once osorio ly pregabalin 75 mg capsule 1 capsule by mouth once a day active Mary Jo Escobar LPN [facility] tadalafil 10 mg oral tablet (17 sources) Phosphodiesterase 5 Inhibitor Start: 11-01-2024 End: 12-01-2024 take 1 tablet by mouth once daily as needed tadalafil (Cialis) 10 MG tablet Indications: Erectile dysfunction, unspecified erectile dysfunction type Take 1 tablet (10 mg) by mouth Daily as needed for erectile dysfunction. 30 tablet 3 11/01/2024 12/01/2024 Active Start: 12-19-2022 End: 01-30-2025 take 1 tablet by mouth once daily VITAMIN D3 (CHOLECALCIFEROL) 50 MCG (2000 UT) TABS (1 source) take 1 tablet by thai th once daily Vitamin D3 50 mcg (2,000 unit) tablet Take 1 tablet by mouth once a day active Ana Rosa Saba [facility] Completed/Discontinued Medications Medication Drug Class(es) Dates Sig (Normalized) Sig (Original) [id number] 97 ointment (9 sources) Start: 12-03-2019 End: 03-24-2020 [id number] 7 ointment Discontinued 0 .ROUTE .MEDSUPPLY 1 December 03, 2019 12:00am March 24, 2020 5:15pm As directed Start: 12-03-2019 End: 03-24-2020 [id number] ointme nt Discontinued 0 .ROUTE .MEDSUPPLY December 03, 2019 12:00am March 24, 2020 5:15pm As directed acetaminophen 325 mg / HYDROcodone bitartrate 5 mg oral tablet (20 sources) Opioid Agonist Start: 04-07-2021 End: 12-19-2022 Hydrocodone-Acetaminophen 5- 325 mg tablet Discontinued 1 {tbl} PO EVERY 6 HOURS NEEDED as needed for Pain 12 3 April 07, 2021 December 19, 2022 2:27pm Fracture of ankle Other fracture of unspecified lower leg, initial encounter for closed fracture Start: 04-07-2021 End: 12-19-2022 take 1 tablet by mouth every six hours as needed Hydrocodone-Acetaminophen Discontinued 1 TABLET PO EVERY 6 HOURS NEEDED 12 April 07, 2021 December 19, 2022 1:27pm Start: 09-02-2016 End: 07-20-2017 Hydrocodone-Acetaminophen 1 TABLET tablet Discontinued 1 - 2 {tbl} PO EVERY 4 HOURS NEEDED as needed for Pain 12 September 02, 2016 12:00am July 20, 2017 4:07pm Start: 09-02-2016 End: 07-20-2017 take 1 tablet by mouth every four hours as needed Hydrocodone-Acetaminophen Discontinued 1 - 2 TABLET PO EVERY 4 HOURS NEEDED September 01, 2016 11:00pm July 20, 2017 3:07pm acetaminophen 325 mg / oxyCODONE hydrochloride 5 mg oral tablet (12 sources) Opioid Agonist Start: 05-02-2021 End: 12-19-2022 Oxycodone-Acetaminophen 1 TABLET tablet Discontinued 1 {tbl} PO EVERY 6 HOURS NEEDED as needed for Pain 12 3 May 02, 2021 December 19, 2022 2:27pm Acute gout Acute renal insufficiency Gout, unspecified Disorder of kidney and ureter, unspecified Start: 05-02-2021 End: 12-19-2022 take 1 tablet by mouth every six hours as needed Oxycodone-Acetaminophen Discontinued 1 TABLET PO EVERY 6 HOURS NEEDED 12 May 02, 2021 December 19, 2022 1:27pm amiodarone hydrochloride 200 mg oral tablet (20 sources) Antiarrhythmic Start: 06-14-2019 End: 05-17-2024 take 1 tablet by mouth once daily Amiodarone 200 mg tablet Discontinued 200 mg PO DAILY 90 May 24, 2021 11:36am May 17, 2024 2:08pm amLODIPine 5 mg oral tablet (20 sources) Dihydropyridine Calcium Channel Damian Start: 05-06-2021 End: 02-14-2024 take 1 tablet by mouth once daily Amlodipine 5 mg tablet Discontinued 5 mg PO DAILY 30 May 06, 2021 1:00am February 14, 2024 9:16am aspirin 325 mg delayed release oral tablet (20 sources) Platelet Aggregation Inhibitor, Nonsteroidal Anti-inflammatory Drug Start: 02-19-2024 End: 05-15-2024 take 1 tablet by mouth once daily Aspirin 325 mg tablet,delayed release (DR/EC) Discontinued 325 mg PO daily February 19, 2024 12:00am May 15, 2024 10:17am Start: 01-30-2024 take 1 tablet by thai th once daily aspirin 81 mg chewable tablet Take 1 tablet by mouth once daily. 01/30/2024 Active Start: 07-20-2017 End: 08-16-2017 take 1 tablet by mouth once daily Aspirin 325 mg tablet,delayed release (DR/EC) Discontinued 325 mg PO daily July 20, 2017 12:00am August 16, 2017 4:26pm [facility] 120 actuat budesonide 0.16 mg/actuat / formoterol fumarate 0.0045 mg/actuat metered dose inhaler (20 sources) Corticosteroid, beta2-Adrenergic Agonist Start: 09-19-2019 End: 10-27-2023 Budesonide-Formoterol (Symbicort) 160-4.5 mcg/actuation HFA aerosol inhaler Discontinued 2 NMA INHALATION TWICE A DAY September 19, 2019 12:00am October 27, 2023 11:03am Start: 09-19-2019 take 1 puff(s) by in halation twice daily Budesonide-Formoterol (Symbicort) 160-4.5 mcg/actuation HFA aerosol inhaler Active 2 PUFF INHALATION TWICE A DAY September 18, 2019 11:00pm Start: 07-21-2017 End: 09-19-2019 Symbicort 160-4.5 Mcg Inhale r Discontinued 2 NMA INHALATION TWICE A DAY as needed for Wheezing/SOB July 21, 2017 12:00am September 19, 2019 3:43pm Start: 07-21-2017 End: 09-19-2019 take 1 puff(s) by inhalation twice daily Symbicort 160-4.5 Mcg Inhaler Discontinued 2 PUFF INHALATION TWICE A DAY July 20, 2017 11:00pm September 19, 2019 2:43pm Start: 07-21-2017 End: 09-19-2019 take 1 puff(s) by inhalation twice daily Symbicort 160-4.5 Mcg Inhaler Discontinued 2 PUFF INHALATION TWICE A DAY July 21, 2017 12:00am September 19, 2019 3:43pm cefdinir 300 mg oral capsule (9 sources) Cephalosporin Antibacterial Start: 08-13-2024 End: 09-18-2024 take 1 capsule by mouth every twelve hours Cefdinir 300 mg capsule Discontinued 300 mg PO Q12H 14 0 August 13, 2024 12:00am September 18, 2024 11:59am cephalexin 500 mg oral capsule (12 sources) Cephalosporin Antibacterial Start: 09-02-2016 End: 07-20-2017 take 1 capsule by mouth every six hours Cephalexin 500 MG capsule Discontinued 500 mg PO EVERY 6 HOURS 40 0 September 02, 2016 12:00am July 20, 2017 4:07pm dilTIAZem (3 sources) Calcium Channel Damian Start: 12-03-2019 End: 03-24-2020 diltiazem HCl Discontinued 0 .ROUTE .MEDSUPPLY December 02, 2019 11:00pm March 24, 2020 4:15pm As directed Start: 12-03-2019 End: 03-24-2020 diltiazem HCl Discontinued 0 .ROUTE .MEDSUPPLY December 03, 2019 12:00am March 24, 2020 5:15pm As directed escitalopram 20 mg oral tablet (6 sources) Serotonin Reuptake Inhibitor Start: 05-31-2006 End: 01-19-2024 LEXAPRO 20 MG TAB Take one(1) tablet daily. 0 05/31/2006 01/19/2024 Discontinued (Discontinued by another Health Care Provider) flecainide acetate 100 mg oral tablet (12 sources) Antiarrhythmic Start: 08-02-2017 End: 08-16-2017 take 1 tablet by mouth twice daily Flecainide 100 mg tablet Discontinued 100 mg PO TWICE A DAY 60 August 02, 2017 12:00am August 16, 2017 4:26pm hydroCHLOROthiazide 25 mg oral tablet (20 sources) Thiazide Diuretic Start: 03-24-2020 End: 05-06-2021 take 1 tablet by mouth once daily Hydrochlorothiazide 25 mg tablet Discontinued 25 mg PO DAILY 90 3 March 16, 2021 4:28pm May 06, 2021 4:03pm hydrocortisone acetate 25 mg rectal suppository (12 sources) Corticosteroid Start: 12-03-2019 End: 12-19-2022 Hydrocortisone Acetate 25 mg suppository Discontinued 25 mg RC TWICE A DAY 24 December 03, 2019 12:00am December 19, 2022 2:27pm ibuprofen (3 sources) Nonsteroidal Anti-inflammatory Drug IBUPROFEN CAPS prn IBUPROFEN CAPS [id number] Trey Duenas LORazepam 0.5 mg oral tablet (6 sources) Benzodiazepine Start: 07-12-2010 End: 11-30-2012 take 1-2 tablets by mouth once daily as needed ATIVAN 0.5 MG TABS 1-2 tablets by mouth daily as needed LORAZEPAM [id number] Jen Page mupirocin 0.02 mg/mg topical ointment [...] Provider) naproxen sodium 220 mg oral tablet (7 sources) Nonsteroidal Anti-inflammatory Drug Start: 11-16-2011 End: 11-30-2012 ALEVE 220 MG TABS PRN NAPROXEN SODIUM [id number] Omer Wray MD Aleve (diclofena c) 1 % topical gel Apply a small amount to affected area as needed for pain active Ana Rosa Saba [facility] predniSONE 20 mg oral tablet (20 sources) Start: 08-13-2024 End: 09-18-2024 take 3 tablets by mouth once daily Prednisone 20 mg tablet Discontinued 60 mg PO DAILY 15 0 August 13, 2024 12:00am September 18, 2024 12:00pm Start: 04-18-2024 End: 05-15-2024 take 2 tablets by mouth once daily Prednisone 20 mg tablet Discontinued 40 mg PO DAILY 10 5 0 April 18, 2024 2:00pm May 15, 2024 10:19am Start: 05-02-2021 End: 12-19-2022 take 3 tablets by mouth once daily Prednisone 20 MG tablet Discontinued 60 mg PO DAILY 15 May 02, 2021 1:00am December 19, 2022 2:28pm Start: 05-02-2021 End: 12-19-2022 take 60 mg by mouth once daily Prednisone Discontinued 60 MG PO DAILY May 02, 2021 12:00am December 19, 2022 1:28pm QUEtiapine 50 mg oral tablet (6 sources) Atypical Antipsychotic End: 11-30-2012 SEROQUEL 50 MG TABS as needed QUETIAPINE FUMARATE [id number] Trey Duenas rivaroxaban 20 mg oral tablet (20 sources) Factor Xa Inhibitor Start: 08-16-2017 End: 09-18-2024 take 1 tablet by mouth once daily at dinner Rivaroxaban 20 mg tablet Discontinued 20 mg PO DAILY 30 August 17, 2020 2:50pm March 20, 2023 9:57am administer with evening meal selenium sulfide 25 mg/ml medicated shampoo (3 [...] Discontinued (Discontinued by another Health Care Provider) sotalol hydrochloride 120 mg oral tablet (12 sources) Antiarrhythmic Start: 05-23-2018 End: 06-14-2019 take 1 tablet by mouth every twelve hours Sotalol 120 mg tablet Discontinued 120 mg PO Q12H May 23, 2018 1:00am June 14, 2019 5:31pm terbinafine 250 mg oral tablet (3 sources) [...] Problem Classification Problem Date Documented Date Episodic/Chronic Abdominal hernia (20 sources) Irreducible umbilical hernia; Translations: [Umbilical hernia with obstruction, without gangrene] 12-19-2022 Episodic Anxiety disorders (8 sources) Anxiety; Translations: [Anxiety disorder, unspecified] Onset: 01-23-2024 01-23-2024 Chronic Aortic; peripheral; and visceral artery aneurysms (12 sources) Femoral false aneurysm; 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] 06-11-2018 Chronic Comment on above: following an ablatio n at [facility] Asthma (20 sources) Unspecified asthma, uncomplicated; Translations: [Exacerbation of asthma] Onset: 03-07-2016 04-26-2024 Chronic Cardiac arrest and ventricular fibrillation (18 sources) Cardiac arrest; Translations: [Cardiac arrest, cause unspecified] Onset: 01-23-2024 Resolved: 05-27-2024 01-23-2024 Chronic Comment on above: 01/23/2024 Cardiac dysrhythmias (20 sources) Atrial fibrillation; Translations: [Atrial paroxysmal tachycardia] Onset: 07-12-2010 07-12-2010 Chronic Comment on above: RFA 2005, 2017, 2018 Cardiac dysrhythmias (20 sources) Palpitations; Translations: [Bradycardia] Onset: 07-12-2010 07-12-2010 Episodic Coagulation and hemorrhagic disorders (6 sources) Thrombocytopenic disorder; Translations: [Thrombocytopenia, unspecified] Onset: 01-25-2024 01-25-2024 Chronic Complications of surgical procedures or medical care (9 sources) Cardiac insufficiency following cardiac surgery; Translations: [Postprocedural cardiac insufficiency following cardiac surgery] Onset: 01-23-2024 01-23-2024 Chronic Conduction disorders (20 sources) Cardiac pacemaker in situ; Translations: [Presence of cardiac pacemaker] Onset: 12-01-2017 11-25-2019 Chronic Congestive heart failure; nonhypertensive (18 sources) Chronic diastolic heart failure; Translations: [Chronic diastolic (congestive) heart failure] Onset: 01-29-2024 06-11-2018 Chronic Diseases of white blood cells (6 sources) Leukocytosis; Translations: [Elevated white blood cell count, unspecified] Onset: 01-25-2024 01-27-2024 Chronic Essential hypertension (20 sources) Essential hypertension; Translations: [Essential (primary) hypertension] Onset: 01-25-2024 06-11-2018 Chronic Fluid and electrolyte disorders (18 sources) Dehydration; Translations: [Dehydration] Onset: 01-25-2024 06-11-2018 Episodic Fracture of lower limb (12 sources) Fracture of ankle; Translations: [Other fracture of unspecified lower leg, initial encounter for closed fracture] 04-07-2021 Episodic Gout and other crystal arthropathies (12 sources) Acute gout; Translations: [Gout, unspecified] 05-10-2021 Chronic Heart valve disorders (20 sources) Mitral valve disorder; Translations: [Rheumatic mitral valve disease, unspecified] Onset: 01-19-2024 12-08-2023 Chronic Nonspecific chest pain (13 sources) Chest discomfort; Translations: [Other chest pain] Onset: 02-06-2024 06-11-2018 Episodic Osteoarthritis (3 sources) Post-traumatic osteoarthritis, right ankle and foot; Translations: [Traumatic arthropathy, ankle and foot] Onset: 06-09-2023 11-06-2024 Chronic Other aftercare (11 sources) History of repair of umbilical hernia; Translations: [Encounter for follow-up examination after completed treatment for conditions other than malignant neoplasm] 03-22-2023 Episodic Comment on above: Patient is a 68-year -old male who presents for his second postoperative visit following robot-assisted umbilical hernia repair via an IPOM approach on 04/03/2023. He is recovering as expected. As previously, I suspect that his knot in his umbilicus represents some indurated hernia sac and his repair seems to be intact. It is apparent that he may have exceeded activity restrictions despite my pleading. I have tried to stress to him that he needs to return to activity at this point in a gradual fashion. He shakes his head in agreement and states he recognizes he must go slowly. I also encouraged him to continue to prioritize aerobic activity and intentional weight loss effort so as to minimize his intra-abdominal pressure. He shares that he is lost approximately 5 to 6 pounds since surgery and plans to continue this endeavor. Other aftercare (7 sources) Encounter for follow-up examination after completed treatment for conditions other than malignant neoplasm; Translations: [Follow-up examination, following other surgery] Onset: 02-06-2024 01-03-2023 Episodic Other aftercare (1 source) Surgical follow-up; Translations: [Encounter for follow-up examination after completed treatment for conditions other than malignant neoplasm] 02-06-2024 Episodic Other aftercare (13 sources) Long-term current use of anticoagulant; Translations: [ocean transportation intermediary (current) use of anticoagulants] 03-01-2024 Episodic Other aftercare (1 source) ocean transportation intermediary (current) use of anticoagulants; Translations: [ocean transportation intermediary (current) use of anticoagulants] Onset: 01-14-2025 Episodic Other circulatory disease (7 sources) Disorder of artery; Translations: [Disorder of arteries and arterioles, unspecified] 12-08-2023 Chronic Other circulatory disease (1 source) Disorder of arteries and arterioles, unspecified; Translations: [Disorder of artery or arteriole (HCC)] Onset: 01-22-2024 Chronic Other circulatory disease (14 sources) Presence of other cardiac implants and grafts; Translations: [Presence of left atrial appendage closure device] Onset: 01-14-2025 02-14-2024 Chronic Comment on above: 01/23/2024 Other circulatory disease (2 sources) Personal history of other diseases of the circulatory system; Translations: [S/P Maze operation for atrial fibrillation] Onset: 02-06-2024 Episodic Other connective tissue disease (1 source) Presence of left artificial knee joint; Translations: [Knee joint replacement] Onset: 08-30-2023 11-06-2024 Chronic Other diseases of kidney and ureters (12 sources) Acute renal insufficiency; Translations: [Disorder of kidney and ureter, unspecified] 05-10-2021 Episodic Other lower respiratory disease (20 sources) Dyspnea on exertion; Translations: [Other forms of dyspnea] Onset: 01-19-2024 01-19-2024 Episodic Other lower respiratory disease (1 source) Shortness of breath; Translations: [Shortness of breath] Onset: 11-01-2024 Episodic Other male genital disorders (4 sources) Male erectile dysfunction, unspecified; Translations: [Impotence of organic origin] Onset: 11-10-2021 11-01-2024 Chronic Other nervous system disorders (1 source) Neuropathy; Translations: [Polyneuropathy, unspecified] Onset: 11-06-2024 11-06-2024 Chronic Other nervous system disorders (1 source) Other acute postprocedural pain; Translations: [Postoperative pain] Onset: 01-23-2024 Episodic Other non-traumatic joint disorders (1 source) Instability of joint of right ankle; Translations: [Other instability, right ankle] Onset: 11-06-2024 11-06-2024 Episodic Other nutritional; endocrine; and metabolic disorders (8 sources) Severe obesity; Translations: [Class 3 severe obesity due to excess calories with body mass index (BMI) of 40.0 to 44.9 in adult] Onset: 01-23-2024 01-23-2024 Chronic Other upper respiratory infections (9 sources) Upper respiratory infection; Translations: [Acute upper respiratory infection, unspecified] 04-26-2024 Episodic Pneumonia (except that caused by tuberculosis or sexually transmitted disease) (9 sources) Pneumonia; Translations: [Pneumonia, unspecified organism] 08-21-2024 Episodic Pulmonary heart disease (12 sources) Pulmonary arterial hypertension; Translations: [Secondary pulmonary arterial hypertension] 11-25-2019 Chronic Residual codes; unclassified (11 sources) History of hernia repair; Translations: [Other specified postprocedural states] 01-03-2023 Episodic Residual codes; unclassified (19 sources) History of repair of mitral valve; Translations: [Other specified postprocedural states] 02-05-2024 Episodic Comment on above: 01/23/24 Residual codes; unclassified (19 sources) History of tricuspid valve repair; Translations: [Other specified postprocedural states] 02-05-2024 Episodic Comment on above: 01/23/2024 Residual codes; unclassified (14 sources) History of maze procedure for atrial fibrillation; Translations: [Other specified postprocedural states] 02-05-2024 Episodic Comment on above: 01/23/2024 Residual codes; unclassified (4 sources) Other specified postprocedural states; Translations: [S/P MVR (mitral valve repair)] Onset: 02-06-2024 Episodic Respiratory failure; insufficiency; arrest (adult) (9 sources) Ventilator finding; Translations: [Dependence on respirator [ventilator] status] Onset: 01-23-2024 01-23-2024 Chronic Sprains and strains (1 source) Rupture of peroneal tendon; Translations: [Strain of muscle(s) and tendon(s) of peroneal muscle group at lower leg level, right leg, initial encounter] Onset: 11-06-2024 11-06-2024 Episodic Unclassified (2 sources) Other; Translations: [Other] Onset: 11-01-2024 Past or Other Problems Problem Classification Problem Date Documented Date Episodic/Chronic Acute posthemorrhagic anemia (6 sources) Acute posthemorrhagic anemia; Translations: [Acute posthemorrhagic anemia] Onset: 01-25-2024 01-25-2024 Episodic Administrative/social admission (6 sources) Patient encounter status; Translations: [Persons encountering health services in other specified circumstances] Onset: 01-29-2024 01-29-2024 Episodic Allergic reactions (19 sources) Contact dermatitis; Translations: [Unspecified contact dermatitis, unspecified cause] Onset: 06-01-2006 11-02-2023 Episodic Crushing injury or internal injury (3 sources) Injury to other specified blood vessels of lower extremity; Translations: [Injury to other specified blood vessels of lower extremity] Onset: 07-12-2010 07-12-2010 Episodic Deficiency and other anemia (1 source) Anemia, unspecified; Translations: [Anemia, unspecified] Onset: 06-06-2024 Episodic Diabetes mellitus without complication (8 sources) Metabolic stress hyperglycemia; Translations: [Hyperglycemia, unspecified] Onset: 01-23-2024 01-23-2024 Episodic Mycoses (20 sources) Tinea cruris; Translations: [Tinea cruris] Onset: 06-01-2006 11-02-2023 Episodic Open wounds of extremities (2 sources) Laceration without foreign body of unspecified finger without damage to nail, initial encounter; Translations: [Laceration without foreign body of unspecified finger without damage to nail, initial encounter] Onset: 09-07-2016 09-26-2016 Episodic Other inflammatory condition of skin (19 sources) Other specified erythematous conditions; Translations: [Other specified erythematous conditions] Onset: 06-01-2006 11-02-2023 Episodic Other lower respiratory disease (5 sources) Dyspnea; Translations: [Shortness of breath] Onset: 07-12-2010 07-12-2010 Episodic Other lower respiratory disease (2 sources) Dyspnea, unspecified; Translations: [Dyspnea, unspecified] Onset: 07-10-2023 Episodic Other lower respiratory disease (2 sources) Other respiratory abnormalities 07-10-2023 Episodic Other lower respiratory disease (2 sources) Other forms of dyspnea; Translations: [BALDERAS (dyspnea on exertion)] Onset: 01-19-2024 Episodic Other nervous system disorders (8 sources) Postoperative pain ; Translations: [Other acute postprocedural pain] Onset: 01-23-2024 01-23-2024 Episodic Other skin disorders (3 sources) Sebaceous cyst; Translations: [Epidermoid cyst of skin of neck] Onset: 05-30-2011 05-31-2011 Episodic Pleurisy; pneumothorax; pulmonary collapse (6 sources) Atelectasis; Translations: [Atelectasis] Onset: 01-26-2024 01-26-2024 Episodic Screening and history of mental health and substance abuse codes (12 sources) Ex-smoker; Translations: [Personal history of nicotine dependence] Onset: 01-25-2024 01-25-2024 Episodic Unclassified (1 source) Erectile dysfunction, unspecified erectile dysfunction type 11-01-2024 Results Test Name Value Interpretation Reference Range Facility Anion gap in Serum or Plasma Ordered By: Evelyn Deleon on 01-13-2025 Anion gap [Moles/Vol] 13 mmol/L 5-15 [facility] BUN/creatinine ratioOrdered By: Evelyn Deleon on 01-13-2025 Urea nitrogen/Creatinine [Mass ratio] 28.3 mg/mg High 10-20 [facility] Bilirubin Test strip Ql (U)O rdered By: Evelyn Deleon on 01-13-2025 Bilirubin Ql (U) Negative Negative [facility] Carbon dioxide, total [Moles /volume] in Central venous bloodOrdered By: Evelyn Deleon on 01-13-2025 CO2 [Moles/Vol] 22.3 mmol/L 21.0-32.0 [facility] Cardiology Visit Reporton Cardiology Visit Report [facility] [address] [place] [address] OFFICE VISIT Date of Service: 01/13/25 MR#: [id number] Acct: [id number] Name: TRE QUIÑONES Rep #: [id number] : 1955 Provider: JOHNNA lira Age/Sex: 69/M Location: [facility] [place] Status: Signed HPI HPI History of Present Illness Details: TRE QUIÑONES, is a 69 M who presents to the office today for a follow-up visit as well as a revisit and second opinion.. He is a gentleman with history of atrial tachyarrhythmia status post ablation in 2005, 2017 and more recently in August 2018. He had initially presented with sinus bradycardia on the beta-damian had experienced some chest discomfort and underwent a cardiac catheterization with demonstrated essentially normal coronary arteries. 24-hour Holter monitor demonstrated periods of atrial fibrillation and flutter. He was sent to the [facility]. The more recent evaluation demonstrated areas of atrial flutter in the tricuspid annulus region. He also subsequently had a permanent pacemaker implanted after his radio frequency ablation in 2017. He had started experiencing more atrial arrhythmias once again and he was sent back to [facility]. It was felt after discussing all the options that the sotalol should be discontinued and he was started on amiodarone. He had been following up at the [facility] due to insurance issues. He had a stress test in 2020. He did have an echocardiogram performed on September 13 at the [facility] and he was recorded to have a moderately dilated left ventricle with estimated ejection fraction of 60 to 65% right ventricle with a pacemaker placed in mitral valve which was normal with severe mitral regurgitation. He had echocardiogram in October 2023 at [facility] that showed ejection fraction of 60% and moderately severe eccentric mitral valve insufficiency. Transesophageal echocardiogram on 11/21/2023 showed severe mitral valve insufficiency. Heart catheterization on 11/21/2023 showed angiographically normal coronary arteries. He was seen with [facility], Dr. Diamond in January 2024. Mitral valve annuloplasty with size 33 mm Suazo annuloplasty band and corknot, tricuspid valve annuloplasty with size 31 mm Teddy annular plasty band, biatrial maze and radiofrequency and cryoablation, and left atrial appendage closure with a size 35 mm Atriclip. Postoperatively his recovery was challenged by PEA arrest with resuscitation. Echocardiogram on 01/29/2024 showed LV function 55???5%, mildly dilated right ventricle, #33 Mark mitral valve annuloplasty ring with trace mitral valve regurgitation, peak mitral valve gradient 15 mmHg, mean mitral valve gradient is 6 mmHg at a heart rate of 101 bpm, #31 during tricuspid valve annuloplasty ring with trace tricuspid valve regurgitation, peak tricuspid valve gradient 9 mmHg, and mean tricuspid valve gradient of 4 mmHg. Device check prior to discharge showed atrial fibrillation. It was recommended continue amiodarone, metoprolol, and resume Xarelto upon discharge. He denies chest, arm, jaw, or neck discomfort. He states palpitations occasionally. He denies bilateral lower extremity edema, but notes right lower extremity edema. He denies claudication. He states shortness of breath with activity, shortness of breath at rest, and orthopnea. He denies PND. He denies chronic cough. He denies significant, sudden weight gain. He denies lightheadedness, dizziness, near-syncope, or syncope. He denies blood in urine, blood in stool, or epistaxis. He denies fever with chills. He denies myalgia. He states fatigue. His exercise level has remained stable.. 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 Accompanied by: Self Is patient in pain?: No Allergies Environmental Allergies: Uncoded (hay fever) Allergy (Verified 01/13/25 13:50) wheezing, cough Medications ???Medication ???Instructions ???Recorded ???Confirmed ???Type albuterol sulfate 90 mcg/actuation 2 puff inhalation Q6H PRN PRN 01/13/25 History aerosol inhaler Wheezing/SOB lisinopril 20 mg tablet 20 mg PO DAILY 05/23/18 01/13/25 H istory tadalafil 5 mg tablet 5 mg PO DAILY 12/19/22 01/13/25 Hi story cholecalciferol (vitamin D3) 50 50 mcg PO DAILY 10/27/23 01/13/25 History mcg (2,000 unit) capsule eplerenone 25 mg tablet (Inspra) 12.5 mg (1/2 x 25 mg) PO DAILY #30 11/13/23 01/13/25 Rx tabs acetaminophen 325 mg capsule 325 mg PO ONCE PRN 02/14/24 History (more content not included)... Normal [facility] Chloride assayOrdered By: Xena Deleon on 01-13-2025 Chloride [Moles/Vol] 106 mmol/L 98-108 [facility] Erythrocyte distribution wid th ratioOrdered By: Evelyn Deleon on 01-13-2025 Erythrocyte distribution width (RBC) [Ratio] 14.0 % 11.6-14.6 [facility] Erythrocyte distribution wid th standard deviationOrdered By: Evelyn Deleon on 01-13-2025 Erythrocyte distribution width (RBC) [Ratio] 44.0 fl High 35.1-43.9 [facility] Glomerular filtration rate ( GFR) estimation/1.73 sq m using serum, plasma, or whole bOrdered By: Evelyn Deleon on 01-13-2025 GFR/1.73 sq M.predicted among non-blacks MDRD (S/P/Bld) [Vol rate/Area] 85 mL/min/{1.73_m2} >60 [facility] Comment on above: mL/min/1.73m2 CKD-EP I Creatinine Equation (2020) Hematocrit Auto (Bld) [Volum e fraction]Ordered By: Evelyn Deleon on 01-13-2025 Hematocrit (Bld) [Volume fraction] 41.1 % 40-54 [facility] Hemoglobin measurementOrdere d By: Evelyn Deleon on 01-13-2025 Hemoglobin (Bld) [Mass/Vol] 13.2 g/dL 13.0-16.5 [facility] International normalized rat io (INR) calculationOrdered By: Evelyn Deleon on 01-13-2025 INR Coag (Bld) [Relative time] 1.4 {INR} [facility] Ketones Test strip Ql (U)Ord ered By: Evelyn Deleon on 01-13-2025 Ketones Ql (U) Negative Negative [facility] MCV (mean corpuscular volume ) determinationOrdered By: Evelyn Deleon on 01-13-2025 MCV (RBC) [Entitic vol] 85.8 fL 80-94 [facility] Mean corpuscular hemoglobin (MCH) determinationOrdered By: Evelyn Deleon on 01-13-2025 MCH (RBC) [Entitic mass] 27.6 pg 27.0-32.0 [facility] Mean corpuscular hemoglobin concentration (MCHC) determinationOrdered By: Evelyn Deleon on 01-13-2025 MCHC (RBC) [Mass/Vol] 32.1 g/dL 32-36 [facility] Mean platelet volume determi nationOrdered By: Evelyn Deleon on 01-13-2025 Platelet mean volume (Bld) [Entitic vol] 10.7 fL 6.2-12.0 [facility] Microscopic analysis of urin e for red blood cells (RBC)Ordered By: Evelyn Deleon on 01-13-2025 Microscopic analysis of urine for red blood cells (RBC) 0 SEEN /hpf 0-5 [facility] Mucus LM Ql (Urine sed)Order ed By: Evelyn Deleon on 01-13-2025 Mucus Ql (Urine sed) 0 SEEN /hpf [facility] Nitrite Test strip Ql (U)Ord ered By: Evelyn Deleon on 01-13-2025 Nitrite Ql (U) Negative Negative [facility] Pacemaker Checkon 01-13-2025 Pacemaker Check [facility] [address] [place] [address]. [address] [place] [address] Pacemaker Check Date of Service: 01/13/251737 MR#: [id number] Acct: [id number] Name: TRE QUIÑONES Rep #: [id number] : 1955 From: Jolene Larkin Age/Sex: 69/M [place] [facility] [place]: Signed Billing Codes PM Device Codes: 06845 PM Dev Prog Eval, Dual Assessment and Plan Assessment and Plan (1) snf current use of anticoagulant: Status: Acute (2) Presence of left atrial appendage closure device: Status: Acute Comment: 01/23/2024 (3) S/P Maze operation for atrial fibrillation: Status: Acute Comment: 01/23/2024 (4) Sick sinus syndrome: Status: Chronic (5) Atypical atrial flutter: Status: Chronic Comment: RFA 2005, 2018, 2019 (6) Presence of permanent cardiac pacemaker: Status: Chronic 09/22/25 1747 Date Jolene Staples Signature: Date (if applicable) CC: Normal [facility] Platelet countOrdered By: Xena Deleon on 01-13-2025 Platelets (Bld) [#/Vol] 221 10*3/uL 150-450 [facility] Potassium measurement (mass/ volume)Ordered By: Evelyn Deleon on 01-13-2025 Potassium (Unsp spec) [Mass/Vol] 4.3 mmol/L 3.3-5.1 [facility] Protein Test strip Ql (U)Ord ered By: Evelyn Deleon on 01-13-2025 Protein Ql (U) 15 mg/dl High Negative [facility] Prothrombin timeOrdered By: Evelyn Deleon on 01-13-2025 PT Coag (PPP) [Time] 17.9 s High 11.7-14.9 [facility] RBC Auto (Bld) [#/Vol]Ordere d By: Evelyn Deleon on 01-13-2025 RBC (Bld) [#/Vol] 4.79 10*6/uL 4.6-6.2 [facility] Serum creatinine measurement (mass/volume)Ordered By: Evelyn Deleon on 01-13-2025 Creatinine [Mass/Vol] 0.97 mg/dL 0.70-1.20 [facility] Serum glucose measurement (m ass/volume)Ordered By: Evelyn Deleon on 01-13-2025 Glucose [Mass/Vol] 105 mg/dL High 70-99 [facility] Serum or plasma calcium filiberto urement (mass/volume)Ordered By: Evelyn Deleon on 01-13-2025 Calcium [Mass/Vol] 9.5 mg/dL 7.6-11.0 [facility] Serum or plasma urea nitroge n measurement (mass/volume)Ordered By: Evelyn Deleon on 01-13-2025 Urea nitrogen [Mass/Vol] 28 mg/dL High 4-19 [facility] Sodium levelOrdered By: Evelyn Deleon on 01-13-2025 Sodium [Moles/Vol] 141 mmol/L 133-145 [facility] Squamous epithelial cells de tection in urine sediment by light microscopyOrdered By: Evelyn Deleon on 01-13-2025 Epithelial cells.squamous LM Ql (Urine sed) 0-5 SEEN /hpf 0-5 [facility] Urine clarityOrdered By: Ryan Deleon on 01-13-2025 Clarity (U) Clear Clear [facility] Urine color determinationOrd ered By: Evelyn Deleon on 01-13-2025 Color (U) Straw Yellow [facility] Urine glucose detectionOrder ed By: Evelyn Deleon on 01-13-2025 Glucose Ql (U) 1000 mg/dl High Normal [facility] Urine leukocyte esterase det ection by dipstickOrdered By: Evelyn Deleon on 01-13-2025 Leukocyte esterase Test strip Ql (U) Negative Negative [facility] Urine pHOrdered By: Evelyn lira on 01-13-2025 pH (U) 6.0 [pH] 5.0 - 8.0 [facility] Urine sediment bacteria coun t by microscopy (number/high power field)Ordered By: Evelyn Deleon on 01-13-2025 Bacteria LM.HPF (Urine sed) [#/Area] 0 /[HPF] None Seen [facility] Urine specific gravity measu rementOrdered By: Evelyn Deleon on 01-13-2025 Specific gravity (U) [Rel density] 1.015 1.002-1.030 [facility] Urine urobilinogen measureme ntOrdered By: Evelyn Deleon on 01-13-2025 Urobilinogen Ql (U) Normal mg/dl Normal [facility] White blood cell (WBC) count Ordered By: Evelyn Deleon on 01-13-2025 WBC (Bld) [#/Vol] 8.0 10*3/uL 4.4-11.0 [facility] White blood cell countOrdere d By: Evelyn Deleon on 01-13-2025 White blood cell count 0-5 SEEN /hpf 0-5 [facility] Relevant diagnostic tests/la boratory data Narrativeon 12-16-2024 Fall risk assessment no [facility] Work Phone: MEDS REVIEW Documentation of current medications (procedure) [employer]. Work Phone: MEDS REVIEWD Medications reviewed without changes [employer]. Work Phone: MRI HX of the right ankle o n 12/12/2024 at [facility] [employer]. Work Phone: XRAY HX on 11/06/2024 [facility] [employer]. Work Phone: MRI ANKLE WO IVCON RTon 11-23 MRI ANKLE WO IVCON RT * * *Final Report* * * DATE OF EXAM: Dec 12 2024 11:30AM [place] 0164 - MRI ANKLE WO IVCON RT / PROCEDURE REASON: S86.31A, M25.371, M19.171 * * * * Physician Interpretation * * * * EXAMINATION: MRI ANKLE WO IVCON RT CLINICAL HISTORY: Right ankle pain TECHNIQUE: Routine MRI of the right ankle/hindfoot without contrast COMPARISON: None RESULT: TENDONS Achilles tendon: Mild tendinosis of the distal Achilles tendon. No tear. Posterior tibial tendon: Intact. Flexor digitorum longus tendon: Intact Flexor hallucis longus tendon: Intact. Peroneal tendons: There is a longitudinal split tear of the peroneus brevis tendon. Peroneus longus is intact. Extensor tendons: Intact LIGAMENTS Lateral: Anterior talofibular ligament: Intact Calcaneofibular ligament: Intact Posterior talofibular ligament: Intact Medial: Deltoid ligament: Intact Spring ligament: Intact Syndesmosis: Anterior-inferior tibiofibular ligament: Intact Posterior tibiofibular ligament: Intact BONES AND JOINTS Joints/cartilage: Relatively preserved cartilage. Bone Marrow: Within normal limits. There is no fracture or stress reaction. Joint fluid: No joint effusion. OTHER Plantar fascia: Intact. There are small calcaneal enthesophytes. Sinus tarsi and tarsal tunnel: Within normal limits. Other: No significant additional findings. Localizer images: No significant additional findings. IMPRESSION: 1. Longitudinal split tear of the peroneus brevis tendon. 2. Mild distal Achilles tendinosis. Mechatronics Engineer: CHRISTOFER Transcribe Date/Time: Dec 16 2024 10:18A Dictated by : VALERIE HAM MD This examination was interpreted and the report reviewed and electronically signed by: VALERIE HAM MD on Dec 16 2024 10:25AM EST [id number] Normal [facility] Office Visiton 11-01-2024 Follow-up visit [id number] Tre Quiñones 1955 M Date Provider Department Center 11/01/2024 [id number] CIFUENTES [facility] URO None No family history on file Level of Service:62287 [place] OFFICE/OUTPATIENT ESTABLISHED MOD MDM 30 MIN Reason for Visit and Comments: Other [0] - Annual follow up, medication refills Denies uti symptoms, denies worsening or new urinary concerns Normal [facility] Progress Noteon 11-01-2024 Progress Note Denny Cifuentes MD 11/01/2024 at 12:15 PM OFFICE FOLLOW-UP VISIT PATIENT NAME: Tre Quiñones DATE OF : 1955 TODAY'S DATE: 11/01/2024 CHIEF COMPLAINT: Chief Complaint Patient presents with Other Annual follow up, medication refills Denies uti symptoms, denies worsening or new urinary concerns Subjective: Mr. Quiñones is a 69 y.o. male who presents to the office for follow up of erectile dysfunction. The tadalafil 5 mg daily does not seem to be working as well as it used to. No voiding issues. Review of Systems Past Medical History: Medical History[1] Past Surgical History: Surgical History[2] Allergies: Gramineae pollens, Hydrochlorothiazide, Influenza vaccines, and Sildenafil Social History: Issues identified in the H&P were noted Family History: Family History[3] Medications Prior to Admission medications Medication Sig Start Date End Date Taking? Authorizing Provider fexofenadine-pseudoep hedrine ER (Apurva-D) 60-120 MG 12 hr tablet Take by mouth. 08/12/24 Yes Historical Provider, fluticasone (Flonase) 50 MCG/ACT nasal spray Administer into affected nostril(s). 02/20/24 Yes Historical Provider, furosemide (Lasix) 40 MG tablet Take 2 tablets by mouth in the morning, and then take 1 tablet in the evening 03/01/24 Yes Historical Provider, lisinopril 20 MG tablet Take 20 mg by mouth daily. 07/08/24 Yes Historical Provider, metoprolol succinate XL (Toprol-XL) 50 MG 24 hr tablet Take 50 mg by mouth daily. 07/08/24 Yes Historical Provider, pregabalin (Lyrica) 75 MG capsule Take 75 mg by mouth 2 times daily. 07/08/24 Yes Historical Provider, rivaroxaban (Xarelto) 20 MG tablet Take 20 mg by mouth. 07/02/24 Yes Historical Provider, albuterol 108 (90 Base) MCG/ACT inhaler Inhale 2 puffs every 6 hours as needed. Historical Provider, tadalafil (Cialis) 10 MG tablet Take 1 tablet (10 mg) by mouth Daily as needed for erectile dysfunction. 11/01/24 12/01/24 Denny Cifuentes MD tadalafil (Cialis) 5 MG tablet Take 1 tablet (5 mg) by mouth every morning. 11/01/24 01/30/25 Denny Cifuentes MD tadalafil (Cialis) 5 MG tablet Take 1 tablet (5 mg) by mouth every morning. 11/06/23 11/01/24 Denny Cifuentes MD Vitals: BP 129/64 (BP Location: Left arm, Patient Position: Sitting, BP Cuff Size: Large adult) Pulse 60 Physical Exam Physical Exam Constitutional: Appearance: Normal appearance. HENT: Head: Normocephalic and atraumatic. Eyes: Extraocular Movements: Extraocular movements intact. Pulmonary: Effort: Pulmonary effort is normal. Musculoskeletal: General: Normal range of motion. Cervical back: Normal range of motion. Neurological: General: No focal deficit present. Mental Status: He is alert and oriented to person, place, and time. Psychiatric: Mood and Affect: Mood normal. Behavior: Behavior normal. Thought Content: Thought content normal. Judgment: Judgment normal. LABS: 07/01/2024: PSA: 1.388 ([place]) Radiology: Impression/Plan Tre was seen today for other. Diagnoses and all orders for this visit: Erectile dysfunction, unspecified erectile dysfunction type (Primary) Follow up if symptoms worsen or fail to improve. OK to continue tadalafil 5 mg daily Add tadalafil 10 mg intermittent prior to sexual activity I have discussed in great detail with the patient the treatment of erectile dysfunction using phosphodiesterase-5 inhibitors such as sildenafil, tadalafil, or vardenafil. I explained that this medication cannot be given if the patient takes any nitrates. I explained the side-effects such as headache, blue vision, indigestion and the chance or priapism. I discussed risk factors which include being over age 50, heart disease, diabetes, high blood pressure, high cholesterol and smoking. I did warn him about the possibility of a lowering of the blood pressure with this medication. I advised him to take the medication approximately 1 hour before his desire for an erection, and that he should avoid any food intake for an hour before the medication in order to maximize the result of the medication. The patient expressed an understanding of the treatment, possible reactions, and possible prognosis. Denny Cifuentes MD 11/01/24 12:15 PM [1] No past medical history on file. [2] No past surgical history on file. [3] No family history on file. Normal [facility] Echo Complete W/ Contraston 10-24-2024 Echo Complete W/ Contrast [facility] [address] [place] [address] Echo Complete W/ Contrast 10/24/24 0555 MR#: [id number] Acct: [id number] Name: TRE QUIÑONES Rep #: [id number] : 1955 69 From: Omer Wray MD Attending Dr: TALITA ThorntonC Status: REG CLI Ordering Dr: Evelyn Deleon SENIOR ARCHITECT/DESIGN MANAGER SENIOR ARCHITECT/DESIGN MANAGER-C Date: 10/24/24 Location: [facility] Sex: M C Admitted: Reason For Study Reason For Study: SOB, VALVE REPLACEMENT/REPAIR Procedure This was a 2D Doppler, Color Flow transthoracic echocardiogram. The study was technically difficult. Due to body habitus. Contrast injection was performed. Exam performed in department. Left Ventricle Normal LV size. Moderate concentric left ventricular hypertrophy. The left ventricular ejection fraction is 60 %. No regional wall motion abnormalities noted. Right Ventricle Normal RV size. Normal systolic function. Atria The left atrium is severely enlarged. The right atrium is moderately enlarged. Mitral Valve Status post mitral valve repair with annuloplasty ring. Tricuspid Valve Normal tricuspid valve. Mild to moderate (1-2+) tricuspid valve insufficiency. Pulmonary artery systolic pressure is 42 mmHg. An annuloplasty ring is noted in the tricuspid position. Aortic Valve Trisinus/trileaflet aortic valve. Pulmonic Valve Normal pulmonic valve. Great Vessels Normal aortic root. The pulmonary artery is normal size. Inferior vena cava collapse with respiration. Pericardium/Pleural No pericardial effusion. Medication 22 gauge I.V. with prn adaptor inserted into right arm. Diluted definity 2.5ml given slow IV push to enhance endocardial definition. MMode/2D Measurements Calculations LVIDd: 6.5 cm IVSd: 1.6 cm Ao root diam: 3.3 cm LVIDs: 4.3 cm LVPWd: 1.4 cm RVDd: 3.8 cm FS: 33.1 % asc Aorta Diam: 3.6 cm LAV(MOD-bp): 143.5 ml LVAd ap4: 43.2 cm2 LAV(MOD-bp) Indexed: 54.6 ml/m2 LVLd ap4: 9.0 cm LAV(MOD-sp2): 121.6 ml EDV(MOD-sp4): 175.4 ml LAV(MOD-sp4): 163.1 ml EDV(sp4-el): 177.1 ml LVAs ap4: 26.3 cm2 LVLs ap4: 7.9 cm ESV(MOD-sp4): 75.3 ml ESV(sp4-el): 74.4 ml EF(MOD-sp4): 57.1 % EF(sp4-el): 58.0 % SV(MOD-sp4): 100.2 ml SV(sp4-el): 102.7 ml LA A4 area: 37.3 cm2 SI(MOD-sp4): 38.1 ml/m2 LA dimension(2D): 5.4 cm RA A4 area: 26.7 cm2 TAPSE: 1.7 cm Doppler Measurements Calculations Med Peak E' Traci: 7.3 cm/sec MV V2 max: 207.9 cm/sec Ao V2 max: 199.2 cm/sec MV max P.3 mmHg Ao max P.9 mmHg MV V2 mean: 87.6 cm/sec Ao V2 mean: 149.0 cm/sec MV mean P.2 mmHg Ao mean P.6 mmHg MV V2 VTI: 57.4 cm Ao V2 VTI: 42.2 cm AV (velocity ratio): 0.69 LV V1 max: 132.0 cm/sec PA V2 max: 171.1 cm/sec TR max traci: 309.5 cm/sec LV V1 max P.0 mmHg PA V2 mean: 99.9 cm/sec TR max P.3 mmHg LV V1 mean P.7 mmHg LV V1 mean: 104.6 cm/sec LV V1 VTI: 29.0 cm ECHO/Echo Complete W/ Contrast Interpretation Summary Normal LV size. The left ventricular ejection fraction is 60 %. Status post mitral valve repair with annuloplasty ring. Moderate concentric left ventricular hypertrophy. Pulmonary artery systolic pressure is 42 mmHg. Ordering Physician: Evelyn Deleon Referring Physician: [facility] Performed By: Sunshine Esquivel RDCS, RVT 10/24/24 1231 Date Omer Wray MD CC: SENIOR ARCHITECT/DESIGN MANAGER-C Evelyn Deleon; [facility] Date Dictated: 10/24/24554 Date Transcribed: 10/24/24 123 Mechatronics Engineer: Signed Normal [facility] Echocardiogram study reportO rdered By: Omer Wray on 10-24-2024 Study report [facility] Cardiovascular Services [address] [facility] [place] [address] Echo Complete W/ Contrast 10/24/24554 MR#: [id number] Acct: [id number] Name: TRE QUIÑONES Rep #:[id number] : 1955 69 From: Omer Kitchen Attending Dr: JOHNNA Thornton Sta tus: REG CLI Ordering Dr: Evelyn Deleon NP Date: 10/24/24 Location: [facility] Sex: M C Admitted: Reason For Study Reason For Study: SOB, VALVE REPLACEMENT/REPAIR Procedure This was a 2D Doppler, Color Flow transthoracic echocardiogram. The study was technically difficult. Due to body habitus. Contrast injection was performed. Exam performed in department. Left Ventricle Normal LV size. Moderate concentric left ventricular hypertrophy. The left ventricular ejection fraction is 60 %. No regional wall motion abnormalities noted. Right Ventricle Normal RV size. Normal systolic function. Atria The left atrium is severely enlarged. The right atrium is moderately enlarged. Mitral Valve Status post mitral valve repair with annuloplasty ring. Tricuspid Valve Normal tricuspid valve. Mild to moderate (1-2+) tricuspid valve insufficiency. Pulmonary artery systolic pressure is 42 mmHg. An annuloplasty ring is noted in the tricuspid position. Aortic Valve Trisinus/trileaflet aortic valve. Pulmonic Valve Normal pulmonic valve. Great Vessels Normal aortic root. The pulmonary artery is normal size. Inferior vena cava collapse with respiration. Pericardium/Pleural No pericardial effusion. Medication 22 gauge I.V. with prn adaptor inserted into right arm. Diluted definity 2.5ml given slow IV push to enhance endocardial definition. MMode/2D Measurements & Calculations LVIDd: 6.5 cm IVSd: 1.6 cm Ao root diam: 3.3 cm LVIDs: 4.3 cm LVPWd: 1.4 cm RVDd: 3.8 cm FS: 33.1 % asc Aorta Diam: 3.6 cm LAV(MOD-bp): 143.5 ml LVAd ap4: 43.2 cm2 LAV(MOD-bp) Indexed: 54.6 ml/m2 LVLd ap4: 9.0 cm LAV(MOD-sp2): 121.6 ml EDV(MOD-sp4): 175.4 ml LAV(MOD-sp4): 163.1 ml EDV(sp4-el): 177.1 ml LVAs ap4: 26.3 cm2 LVLs ap4: 7.9 cm ESV(MOD-sp4): 75.3 ml ESV(sp4-el): 74.4 ml EF(MOD-sp4): 57.1 % EF(sp4-el): 58.0 % SV(MOD-sp4): 100.2 ml SV(sp4-el): 102.7 ml LA A4 area: 37.3 cm2 SI(MOD-sp4): 38.1 ml/m2 LA dimension(2D): 5.4 cm RA A4 area: 26.7 cm2 TAPSE: 1.7 cm Doppler Measurements & Calculations Med Peak E' Traci: 7.3 cm/sec MV V2 max: 207.9 cm/sec Ao V2 max: 199.2 cm/sec MV max P.3 mmHg Ao max P.9 mmHg MV V2 mean: 87.6 cm/sec Ao V2 mean: 149.0 cm/sec MV mean P.2 mmHg Ao mean P.6 mmHg MV V2 VTI: 57.4 cm Ao V2 VTI: 42.2 cm AV (velocity ratio): 0.69 LV V1 max: 132.0 cm/sec PA V2 max: 171.1 cm/sec TR max traci: 309.5 cm/sec LV V1 max P.0 mmHg PA V2 mean: 99.9 cm/sec TR max P.3 mmHg LV V1 mean P.7 mmHg LV V1 mean: 104.6 cm/sec LV V1 VTI: 29.0 cm ECHO/Echo Complete W/ Contrast Interpretation Summary Normal LV size. The left ventricular ejection fraction is 60 %. Status post mitral valve repair with annuloplasty ring. Moderate concentric left ventricular hypertrophy. Pulmonary artery systolic pressure is 42 mmHg. Ordering Physician: Evelyn Deleon Referring Physician: [facility] Performed By: Sunshine Esquivel, JUAN, RVT 10/24/24 1231 Date _ Omer Wray MD CC: JOHNNA Deleon; [facility] ~ Date Dictated: 10/24/24 0555 Date Transcribed: 10/24/24 1231 Mechatronics Engineer: Signed [facility] Work Phone: 36on 10-07-2024 36 TE. Pt last OV 10/15/21, requesting refill Cialis. Appt scheduled 11/01 @ [address] [place] [address]. Pt confirms d/t/l. Normal [facility] Anion gap in Serum or Plasma Ordered By: Evelyn Deleon on 09-18-2024 Anion gap [Moles/Vol] 10 mmol/L - [facility] BUN/creatinine ratioOrdered By: Evelyn Deleon on 09-18-2024 Urea nitrogen/Creatinine [Mass ratio] 28.2 mg/mg High 02-10 [facility] Basic Metabolic Profile (BMP )on 09-18-2024 BUN/CRE 28.2 RATIO High 02-10 [facility] Comment on above: Performed By: #### L 500.2500, L503.7505 #### [facility] [address] [place], [address] Calcium [Mass/Vol] 9.4 mg/dL Normal 7.6-11.0 [facility] Comment on above: Performed By: #### L 500.2500, L503.7505 #### [facility] [address] [place], [address] Chloride [Moles/Vol] 107 mmol/L Normal 98-108 [facility] Comment on above: Performed By: #### L 500.2500, L503.7505 #### [facility] [address] [place], [address] CO2 [Moles/Vol] 24.3 mmol/L Normal 21.0-32.0 [facility] Comment on above: Performed By: #### L 500.2500, L503.7505 #### [facility] [address] [place], [address] Creatinine [Mass/Vol] 0.92 mg/dL Normal 0.70-1.20 [facility] Comment on above: Performed By: #### L 500.2500, L503.7505 #### [facility] [address] [place], [address] GAP 10 Normal 5-15 [facility] Comment on above: Performed By: #### L 500.2500, L503.7505 #### [facility] [address] [place], [address] GFR/1.73 sq M.predicted among non-blacks MDRD (S/P/Bld) [Vol rate/Area] 91 mL/min/{1.73_m2} Normal >60 [facility] Comment on above: Result Comment: mL/m in/1.73m2 CKD-EPI Creatinine Equation (2020) Performed By: #### L 500.2500, L503.7505 #### [facility] [address] [place], [address] Glucose [Mass/Vol] 95 mg/dL Normal 70-99 [facility] Comment on above: Performed By: #### L 500.2500, L503.7505 #### [facility] [address] [place], [address] Potassium [Moles/Vol] 4.1 mmol/L Normal 3.3-5.1 [facility] Comment on above: Performed By: #### L 500.2500, L503.7505 #### [facility] [address] [place], [address] Sodium [Moles/Vol] 141 mmol/L Normal 133-145 [facility] Comment on above: Performed By: #### L 500.2500, L503.7505 #### [facility] [address] [place], [address] Urea nitrogen [Mass/Vol] 26 mg/dL High 4-19 [facility] Comment on above: Performed By: #### L 500.2500, L503.7505 #### [facility] [address] [place], [address] Carbon dioxide, total [Moles /volume] in Central venous bloodOrdered By: Evelyn Deleon on 09-18-2024 CO2 [Moles/Vol] 24.3 mmol/L 21.0-32.0 [facility] Cardiology Visit Reporton Cardiology Visit Report [facility] [address] [place] [address] OFFICE VISIT Date of Service: 09/18/24 MR#: [id number] Acct: [id number] Name: TRE QUIÑONES Rep #: [id number] : 1955 Provider: JOHNNA lira Age/Sex: 69/M [place] [facility] Status: Signed HPI HPI History of Present Illness Details: TRE QUIÑONES, is a 69 M who presents to the office today for a follow-up visit as well as a revisit and second opinion.. He is a gentleman with history of atrial tachyarrhythmia status post ablation in 2005, 2017 and more recently in August 2018. He had initially presented with sinus bradycardia on the beta-damian had experienced some chest discomfort and underwent a cardiac catheterization with demonstrated essentially normal coronary arteries. 24-hour Holter monitor demonstrated periods of atrial fibrillation and flutter. He was sent to the [facility]. The more recent evaluation demonstrated areas of atrial flutter in the tricuspid annulus region. He also subsequently had a permanent pacemaker implanted after his radio frequency ablation in 2018. He had started experiencing more atrial arrhythmias once again and he was sent back to [facility]. It was felt after discussing all the options that the sotalol should be discontinued and he was started on amiodarone. He had been following up at the [facility] due to insurance issues. He had a stress test in 2020. He did have an echocardiogram performed on September 13 at the [facility] and he was recorded to have a moderately dilated left ventricle with estimated ejection fraction of 60 to 65% right ventricle with a pacemaker placed in mitral valve which was normal with severe mitral regurgitation. He had echocardiogram in October 2023 at [facility] that showed ejection fraction of 60% and moderately severe eccentric mitral valve insufficiency. Transesophageal echocardiogram on 11/21/2023 showed severe mitral valve insufficiency. Heart catheterization on 11/21/2023 showed angiographically normal coronary arteries. He was seen with [facility], Dr. Diamond in January 2024. Mitral valve annuloplasty with size 33 mm Suazo annuloplasty band and corknot, tricuspid valve annuloplasty with size 31 mm Teddy annular plasty band, biatrial maze and radiofrequency and cryoablation, and left atrial appendage closure with a size 35 mm Atriclip. Postoperatively his recovery was challenged by PEA arrest with resuscitation. Echocardiogram on 01/29/2024 showed LV function 55???5%, mildly dilated right ventricle, #33 Mark mitral valve annuloplasty ring with trace mitral valve regurgitation, peak mitral valve gradient 15 mmHg, mean mitral valve gradient is 6 mmHg at a heart rate of 101 bpm, #31 during tricuspid valve annuloplasty ring with trace tricuspid valve regurgitation, peak tricuspid valve gradient 9 mmHg, and mean tricuspid valve gradient of 4 mmHg. Device check prior to discharge showed atrial fibrillation. It was recommended continue amiodarone, metoprolol, and resume Xarelto upon discharge. He acknowledges daily, sharp chest discomfort. This is noted with exercise and improves with rest. This is located midsternal and left side of his chest. This is worse with coughing. He acknowledges palpitations when first lying down after activity. This is improved compared to previous. He describes as a fast and fluttering. He acknowledges occasional bilateral lower extremity edema that is not new. He denies lightheadedness, dizziness, near-syncope, or syncope. He acknowledges ongoing fatigue. 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 Is patient in pain?: No Allergies Environmental Allergies: Uncoded (hay fever) Allergy (Verified 09/18/24 11:58) wheezing, cough Medications ???Medication ???Instructions ???Recorded ???Confirmed ???Type albuterol sulfate 90 mcg/actuation 2 puff inhalation Q6H PRN PRN 09/18/24 History aerosol inhaler Wheezing/SOB lisinopril 20 mg tablet 20 mg PO DAILY 05/23/18 09/18/24 H istory tadalafil 5 mg tablet 5 mg PO DAILY 12/19/22 09/18/24 Hi story cholecalciferol (vitamin D3) 50 50 mcg PO DAILY 10/27/23 09/18/24 History mcg (2,000 unit) capsule eplerenone 25 mg tablet (Inspra) 12.5 mg (1/2 x 25 mg) PO DAILY #30 11/13/23 09/18/24 Rx tabs acetaminophen 325 mg capsule 325 mg PO ONCE PRN 02/14/24 History diclofenac sodium 1 % topical gel 2 g topical ONCE PRN 02/14/24 History (Voltaren Arthritis Pain) empaglifloz (more content not included)... Normal [facility] Chloride assayOrdered By: Xena Deleon on 09-18-2024 Chloride [Moles/Vol] 107 mmol/L 98-108 [facility] Glomerular filtration rate ( GFR) estimation/1.73 sq m using serum, plasma, or whole bOrdered By: Evelyn Deleon on 09-18-2024 GFR/1.73 sq M.predicted among non-blacks MDRD (S/P/Bld) [Vol rate/Area] 91 mL/min/{1.73_m2} >60 [facility] Comment on above: mL/min/1.73m2 CKD-EP I Creatinine Equation (2020) L503.7505on 09-18-2024 Natriuretic peptide B (Bld) [Mass/Vol] 538 pg/mL Normal <=900 [facility] Comment on above: Result Comment: Hear t Failure Unlikely: < 300 pg/mL Heart Failure Likely < 50 Years: > 450 pg/mL 50-75 Years: > 900 pg/mL >75 Years: > 1800 pg/mL Performed By: #### L 500.2500, L503.7505 #### [facility] [place], [place], [address] Natriuretic peptide.B prohor beny N-Terminal [Mass/volume] in Serum or PlasmaOrdered By: Evelyn Deleon on 09-18-2024 Natriuretic peptide.B prohormone N-Terminal [Mass/Vol] 538 pg/mL <900 [facility] Comment on above: Heart Failure Unlike ly: < 300 pg/mLHeart Failure Likely< 50 Years: > 450 pg/mL50-75 Years: > 900 pg/mL>75 Years: > 1800 pg/mL Potassium measurement (mass/ volume)Ordered By: Evelyn Deleon on 09-18-2024 Potassium (Unsp spec) [Mass/Vol] 4.1 mmol/L 3.3-5.1 [facility] Serum creatinine measurement (mass/volume)Ordered By: Evelyn Dleeon on 09-18-2024 Creatinine [Mass/Vol] 0.92 mg/dL 0.70-1.20 [facility] Serum glucose measurement (m ass/volume)Ordered By: Evelyn Deleon on 09-18-2024 Glucose [Mass/Vol] 95 mg/dL 70-99 [facility] Serum or plasma calcium filiberto urement (mass/volume)Ordered By: Evelyn Deleon on 09-18-2024 Calcium [Mass/Vol] 9.4 mg/dL 7.6-11.0 [facility] Serum or plasma urea nitroge n measurement (mass/volume)Ordered By: Evelyn Deleon on 09-18-2024 Urea nitrogen [Mass/Vol] 26 mg/dL High 4- [facility] Sodium levelOrdered By: Evelyn Deleon on 09-18-2024 Sodium [Moles/Vol] 141 mmol/L 133-145 [facility] Absolute lymphocyte countOrd ered By: Qamar Rosario on 08-13-2024 Lymphocytes Auto (Unsp spec) [#/Vol] 1.26 10*3/uL 0.83-4.51 [facility] Absolute neutrophil countOrd ered By: Qamar Rosario on 08-13-2024 Neutrophils (Bld) [#/Vol] 3.7 10*3/uL 2.0-7.7 [facility] Anion gap in Serum or Plasma Ordered By: Qamar Rosario on 08-13-2024 Anion gap [Moles/Vol] 9 mmol/L - [facility] Automated lymphocyte count a s percentage of total leukocytesOrdered By: Qamar Rosario on 08-13-2024 Lymphocytes/100 WBC Auto (Unsp spec) 20.3 % - [facility] BUN/creatinine ratioOrdered By: Qamar Rosario on 08-13-2024 Urea nitrogen/Creatinine [Mass ratio] 18.5 mg/mg 10- [facility] Basic Metabolic Profile (BMP )on 08-13-2024 BUN/CRE 18.5 RATIO Normal - [facility] Comment on above: Performed By: #### L 500.2500, L100.0100 ####[facility] [address] [place], [address] Calcium [Mass/Vol] 9.3 mg/dL Normal 7.6-11.0 [facility] Comment on above: Performed By: #### L 500.2500, L100.0100 ####[facility] [address] [place], [address] Chloride [Moles/Vol] 105 mmol/L Normal 98-108 [facility] Comment on above: Performed By: #### L 500.2500, L100.0100 ####[facility] [address] [place], [address] CO2 [Moles/Vol] 25.9 mmol/L Normal 21.0-32.0 [facility] Comment on above: Performed By: #### L 500.2500, L100.0100 ####[facility] [address] [place], [address] Creatinine [Mass/Vol] 1.05 mg/dL Normal 0.70-1.20 [facility] Comment on above: Performed By: #### L 500.2500, L100.0100 ####[facility] [address] [place], [address] ECRCL 100.31 ml/min Normal 50-250 [facility] Comment on above: Performed By: #### L 500.2500, L100.0100 ####[facility] [address] [place], [address] GAP 9 Normal 5-15 [facility] Comment on above: Performed By: #### L 500.2500, L100.0100 ####[facility] [address] [place], [address] GFR/1.73 sq M.predicted among non-blacks MDRD (S/P/Bld) [Vol rate/Area] 78 mL/min/{1.73_m2} Normal >60 [facility] Comment on above: Result Comment: mL/m in/1.73m2 CKD-EPI Creatinine Equation (2020) Performed By: #### L 500.2500, L100.0100 ####[facility] [address] [place], [address] Glucose [Mass/Vol] 125 mg/dL High 70-99 [facility] Comment on above: Performed By: #### L 500.2500, L100.0100 ####[facility] [address] [place], [address] Potassium [Moles/Vol] 4.3 mmol/L Normal 3.3-5.1 [facility] Comment on above: Performed By: #### L 500.2500, L100.0100 ####[facility] [address] [place], [address] Sodium [Moles/Vol] 140 mmol/L Normal 133-145 [facility] Comment on above: Performed By: #### L 500.2500, L100.0100 ####[facility] [address] [place], [address] Urea nitrogen [Mass/Vol] 19 mg/dL Normal 4-19 [facility] Comment on above: Performed By: #### L 500.2500, L100.0100 ####[facility] [address] [place], [address] Basophil percentageOrdered B y: Qamar Le on 08-13-2024 Basophils/100 WBC (Bld) 1.3 % High 0-1 [facility] CBC W/Diff, Automatedon 07-24 Absolute Lymph 1.26 X10 3/uL Normal 0.83-4.51 [facility] Comment on above: Performed By: #### L 500.2500, L100.0100 ####[facility] [address] [place], [address] Absolute Neut 3.7 X10 3/uL Normal 2.0-7.7 [facility] Comment on above: Performed By: #### L 500.2500, L100.0100 ####[facility] [address] [place], [address] Basophils/100 WBC (Bld) 1.3 % High 0-1 [facility] Comment on above: Performed By: #### L 500.2500, L100.0100 ####[facility] [address] [place], [address] Eosinophils/100 WBC (Bld) 6.1 % High 0-5 [facility] Comment on above: Performed By: #### L 500.2500, L100.0100 ####[facility] [address] [place], [address] Erythrocyte distribution width (RBC) [Ratio] 15.3 % High 11.6-14.6 [facility] Comment on above: Performed By: #### L 500.2500, L100.0100 ####[facility] [address] [place], [address] Hematocrit (Bld) [Volume fraction] 38.9 % Low 40-54 [facility] Comment on above: Performed By: #### L 500.2500, L100.0100 ####[facility] [address] [place], [address] Hemoglobin (Bld) [Mass/Vol] 12.3 g/dL Low 13.0-16.5 [facility] Comment on above: Performed By: #### L 500.2500, L100.0100 ####[facility] [address] [place], [address] IG% 0.600 Normal 0.0-0.9 [facility] Comment on above: Result Comment: IG% - Immature Granulocytes (promyelocytes, myelocytes and metamyelocytes) > 1% indicates that a LEFT SHIFT is Present. Performed By: #### L 500.2500, L100.0100 ####[facility] [address] [place], [address] Lymphocytes/100 WBC (Bld) 20.3 % Normal 19-41 [facility] Comment on above: Performed By: #### L 500.2500, L100.0100 ####[facility] [address] [place], [address] MCH (RBC) [Entitic mass] 26.7 pg Low 27.0-32.0 [facility] Comment on above: Performed By: #### L 500.2500, L100.0100 ####[facility] [address] [place], [address] MCHC (RBC) [Mass/Vol] 31.6 g/dL Low 32-36 [facility] Comment on above: Performed By: #### L 500.2500, L100.0100 ####[facility] [address] [place], [address] MCV (RBC) [Entitic vol] 84.6 fL Normal 80-94 [facility] Comment on above: Performed By: #### L 500.2500, L100.0100 ####[facility] [address] [place], [address] Monocytes/100 WBC (Bld) 12.1 % High 0-10 [facility] Comment on above: Performed By: #### L 500.2500, L100.0100 ####[facility] [address] [place], [address] Neutrophils/100 WBC (Bld) 59.6 % Normal 47-70 [facility] Comment on above: Performed By: #### L 500.2500, L100.0100 ####[facility] [address] [place], [address] Nucleated RBC (Bld) [#/Vol] 0 10*3/uL Normal 0-5 [facility] Comment on above: Performed By: #### L 500.2500, L100.0100 ####[facility] [address] [place], [address] Platelet mean volume (Bld) [Entitic vol] 10.7 fL Normal 6.2-12.0 [facility] Comment on above: Performed By: #### L 500.2500, L100.0100 ####[facility] [address] [place], [address] Platelets (Bld) [#/Vol] 189 10*3/uL Normal 150-450 [facility] Comment on above: Performed By: #### L 500.2500, L100.0100 ####[facility] [address] [place], [address] RBC (Bld) [#/Vol] 4.60 10*6/uL Normal 4.6-6.2 [facility] Comment on above: Performed By: #### L 500.2500, L100.0100 ####[facility] [address] [place], [address] RDW SD 46.9 fl High 35.1-43.9 [facility] Comment on above: Performed By: #### L 500.2500, L100.0100 ####[facility] [address] [place], [address] WBC (Bld) [#/Vol] 6.2 10*3/uL Normal 4.4-11.0 [facility] Comment on above: Performed By: #### L 500.2500, L100.0100 ####[facility] [address] [place], [address] Carbon dioxide, total [Moles /volume] in Central venous bloodOrdered By: Qamar Mckenzie 08-13-2024 CO2 [Moles/Vol] 25.9 mmol/L 21.0-32.0 [facility] Chest PA and Lateralon 08-13 Chest PA and Lateral [facility] [address] [place] [address] Chest PA and Lateral MR#: [id number] Acct: [id number] Name: TRE QUIÑONES Rep #: [id number] : 1955 M 69 From: López Rosario MD PCP: [facility] Status: REG ER Study: Chest PA and Lateral Date of Exam: 08/13/24 Exam# [id number] Ordering Dr: Qamar Rosario DO EXAM: XR Chest, 2 Views CLINICAL INDICATION: COUGH TECHNIQUE: Frontal and lateral views of the chest. COMPARISON: No relevant prior studies available. FINDINGS: LUNGS AND PLEURAL SPACES: See below. HEART: Cardiomegaly with pulmonary congestion and edema. Superimposed pneumonia cannot be excluded. MEDIASTINUM: Unremarkable. Normal mediastinal contour. BONES/JOINTS: Unremarkable. No acute fracture. TUBES, LINES AND DEVICES: Left-sided cardiac pacemaker. RAD/Chest PA and Lateral IMPRESSION: Cardiomegaly with pulmonary congestion and edema. Superimposed pneumonia cannot be excluded. Reading Location: [facility] CC: Dr. Qamar Rosario DO; [facility] Mechatronics Engineer: Signed Normal [facility] Chloride assayOrdered By: Kishan Rosario on 08-13-2024 Chloride [Moles/Vol] 105 mmol/L 98-108 [facility] Emergency Department Summary on 08-13-2024 Emergency Department Summary [facility] Medical Records Department [address] [place] [address] Emergency Department Summary 08/13/24 MR#: [id number] Acct: [id number] Name: TRE QUIÑONES Rep #: [id number] : 1955 69 From: Qamar Carroll PCP: [facility] Status:DEP ER Location: ED HPI History of Present Illness Chief Complaint: Shortness of Breath Narrative Narrative: History of sick sinus syndrome with pacemaker, paroxysmal A-fib on Xarelto, asthma presents for history of respiratory symptoms sinus congestion leading to productive cough with wheezing. Remote tobacco years ago. No chest pains. Using his nebulizers and inhaler. Possible sick contact with another worker. No fevers or myalgias. Did home COVID that was negative. Denies vomiting or diarrhea. Denies history of diabetes. [facility] similar symptoms: [facility] Medical History History of pacemaker Wears hearing aid Wears glasses PTSD (post-traumatic stress disorder) Anxiety Arthritis Vertigo Former smoker CPAP (continuous positive airway pressure) dependence History of pain when walking History of stress test Hypertension History of echocardiogram Cardiology follow-up encounter History of atrial fibrillation Acute posterior anal fissure Hemorrhoids, internal, with bleeding Paroxysmal atrial fibrillation Secondary pulmonary arterial hypertension Essential (primary) hypertension Chronic diastolic (congestive) heart failure Asthma Sick sinus syndrome Atypical atrial flutter Bradycardia Morbid obesity with BMI of 40.0-44.9, adult Home Medications ???Medication ???Instructions ???Recorded ???Last Taken ???Type albuterol sulfate 90 mcg/actuation 2 puff inhalation Q6H PRN PRN 07/18/17 History aerosol inhaler Wheezing/SOB lisinopril 20 mg tablet 20 mg PO DAILY 05/23/18 11/21/23 H istory tadalafil 5 mg tablet 5 mg PO DAILY 12/19/22 11/19/23 Hi story rivaroxaban 20 mg tablet 20 mg PO QHS 03/20/23 11/16/23 His tory cholecalciferol (vitamin D3) 50 50 mcg PO DAILY 10/27/23 Unknown H istory mcg (2,000 unit) capsule eplerenone 25 mg tablet (Inspra) 12.5 mg (1/2 x 25 mg) PO DAILY #30 11/13/23 Unknown Rx tabs acetaminophen 325 mg capsule 325 mg PO ONCE PRN 02/14/24 Unknow n History diclofenac sodium 1 % topical gel 2 g topical ONCE PRN 02/14/24 Unk nown History (Voltaren Arthritis Pain) empagliflozin 25 mg tablet 12.5 mg PO QAM 02/14/24 Unknown Hi story potassium gluconate 595 mg (99 mg) 595 mg PO QDAY 02/19/24 Unknown History tablet metoprolol succinate 50 mg 50 mg PO QDAY #90 tabs 03/13/24 Un known Rx tablet,extended release 24 hr furosemide 40 mg tablet 20 mg PO QDAY 05/15/24 Unknown His tory cefdinir 300 mg capsule 300 mg PO Q12H #14 caps 08/13/24 U nknown Rx prednisone 20 mg tablet 60 mg (3 x 20 mg) PO DAILY #15 Unknown Rx TABLETS Allergy/AdvReac Type Severity Reaction Status Date / Time Environmental Allergies: Allergy wheezing, Verified 08/13/24 11:38 Uncoded (hay fever) cough Family History Mother Diabetes Hypertension Father Cancer prostate Other CVA (cerebral vascular accident) Surgical History History of open heart surgery S/P hernia repair S/P total knee replacement (08/08/23) History of umbilical hernia repair Hx of laparoscopy Status post bilateral hernia repair History of colonoscopy (11/25/19) History of hemorrhoidectomy History of left heart catheterization (07/21/17) Presence of permanent cardiac pacemaker (12/01/17) History of cardioversion (06/11/18) History of cardiac radiofrequency ablation (08/24/18) Social History household members: spouse Smoking Status: Former smoker how long ago did patient quit smokin alcohol intake: current alcohol intake frequency: holidays/special occasions only substance use type: does not use caffeine: Yes Type: carbonated beverages Number of servings: 5 and coffee ROS ROS ED Constitutional Constitutional ED: Denies chills, fever(s) or sweats ENT ENT ED: Denies sore throat Cardiovascular Cardiovascular: Denies chest pain, leg edema, palpitations or racing heartbeat Respiratory/Chest Respiratory/Chest: Reports cough, dyspnea and other Details: Wheeze ; Denies dyspnea on exertion Gastrointestinal Gastrointestinal: Denies abdominal pain, diarrhea, nausea or vomiting Genitourinary Genitourinary ED: Denies dysuria, hematuria or urinary frequency Musculoskeletal Musculoskeletal: Denies back pain, extremity pain or neck pain Integumentary Denies rash or wounds Neurologic Neurologic: Denies headache(s), paresthesias or weakness (more content not included)... Normal [facility] Eosinophil percentageOrdered By: Qamar Rosario on 08-13-2024 Eosinophils/100 WBC (Bld) 6.1 % High 0-5 [facility] Erythrocyte distribution wid th ratioOrdered By: Qamar Rosario on 08-13-2024 Erythrocyte distribution width (RBC) [Ratio] 15.3 % High 11.6-14.6 [facility] Erythrocyte distribution wid th standard deviationOrdered By: Qamar Rosario on 08-13-2024 Erythrocyte distribution width (RBC) [Ratio] 46.9 fl High 35.1-43.9 [facility] Glomerular filtration rate ( GFR) estimation/1.73 sq m using serum, plasma, or whole bOrdered By: Qamar Rosario on 08-13-2024 GFR/1.73 sq M.predicted among non-blacks MDRD (S/P/Bld) [Vol rate/Area] 78 mL/min/{1.73_m2} >60 [facility] Comment on above: mL/min/1.73m2 CKD-EP I Creatinine Equation (2020) Hematocrit Auto (Bld) [Volum e fraction]Ordered By: Qamar Rosario on 08-13-2024 Hematocrit (Bld) [Volume fraction] 38.9 % Low 40-54 [facility] Hemoglobin measurementOrdere d By: Qamar Rosario on 08-13-2024 Hemoglobin (Bld) [Mass/Vol] 12.3 g/dL Low 13.0-16.5 [facility] Immature granulocytes/100 WB C Auto (Bld)Ordered By: Qamar Rosario on 08-13-2024 Immature granulocytes/100 WBC (Bld) 0.600 % 0.0-0.9 [facility] Comment on above: IG% - Immature Granu locytes (promyelocytes, myelocytes and metamyelocytes) > 1% indicates that a LEFT SHIFT is Present. MCV (mean corpuscular volume ) determinationOrdered By: Qamar Rosario on 08-13-2024 MCV (RBC) [Entitic vol] 84.6 fL 80-94 [facility] Mean corpuscular hemoglobin (MCH) determinationOrdered By: Qamar Rosario on 08-13-2024 MCH (RBC) [Entitic mass] 26.7 pg Low 27.0-32.0 [facility] Mean corpuscular hemoglobin concentration (MCHC) determinationOrdered By: Qamar Rosario on 08-13-2024 MCHC (RBC) [Mass/Vol] 31.6 g/dL Low 32-36 [facility] Mean platelet volume determi nationOrdered By: Qamar Rosario on 08-13-2024 Platelet mean volume (Bld) [Entitic vol] 10.7 fL 6.2-12.0 [facility] Monocyte percentageOrdered B y: Qamar Rsoario on 08-13-2024 Monocytes/100 WBC (Bld) 12.1 % High 0-10 [facility] Neutrophil percentageOrdered By: Qamar Rosario on 08-13-2024 Neutrophils/100 WBC (Bld) 59.6 % 47-70 [facility] Nucleated red blood cell per centageOrdered By: Qamar Rosario on 08-13-2024 Nucleated RBC/100 WBC (Bld) [Ratio] 0 % 0-5 [facility] Platelet countOrdered By: Kishan garcia Marlene on 08-13-2024 Platelets (Bld) [#/Vol] 189 10*3/uL 150-450 [facility] Potassium measurement (mass/ volume)Ordered By: Qamar Rosario on 08-13-2024 Potassium (Unsp spec) [Mass/Vol] 4.3 mmol/L 3.3-5.1 [facility] RBC Auto (Bld) [#/Vol]Ordere d By: Qamar Rosario on 08-13-2024 RBC (Bld) [#/Vol] 4.60 10*6/uL 4.6-6.2 [facility] Serum creatinine measurement (mass/volume)Ordered By: Qamar Rosario on 08-13-2024 Creatinine [Mass/Vol] 1.05 mg/dL 0.70-1.20 [facility] Serum glucose measurement (m ass/volume)Ordered By: Qamar Rosario on 08-13-2024 Glucose [Mass/Vol] 125 mg/dL High 70-99 [facility] Serum or plasma calcium filiberto urement (mass/volume)Ordered By: Qamar Rosario on 08-13-2024 Calcium [Mass/Vol] 9.3 mg/dL 7.6-11.0 [facility] Serum or plasma urea nitroge n measurement (mass/volume)Ordered By: Qamar Rosario on 08-13-2024 Urea nitrogen [Mass/Vol] 19 mg/dL 4-19 [facility] Sodium levelOrdered By: Qamar Rosario on 08-13-2024 Sodium [Moles/Vol] 140 mmol/L 133-145 [facility] White blood cell (WBC) count Ordered By: Qamar Rosario on 08-13-2024 WBC (Bld) [#/Vol] 6.2 10*3/uL 4.4-11.0 [facility] Transferrinon 05-16-2024 Transferrin [Mass/Vol] 345 mg/dL High 177-329 [facility] Comment on above: Result Comment: Perf ormed at: - [facility] [address] [id number] Dispatch Clerk: Ignacio Clayton PhD, Phone: [phone] Performed By: #### L 503.6075, L100.0100, L500.2500, L503.6550, L503.6150, L3400.3800 ####[facility] [address] [place], [address] Basic Metabolic Profile (BMP )on 05-15-2024 BUN/CRE 20.2 RATIO High 10-20 [facility] Comment on above: Performed By: #### L 503.6075, L100.0100, L500.2500, L503.6550, L503.6150, L3400.3800 #### [facility] [address] [place], [address] CA,Total 9.6 mg/dL Normal 8.5-10.1 [facility] Comment on above: Performed By: #### L 503.6075, L100.0100, L500.2500, L503.6550, L503.6150, L3400.3800 #### [facility] [address] [place], [address] Chloride [Moles/Vol] 104 mmol/L Normal 98-107 [facility] Comment on above: Performed By: #### L 503.6075, L100.0100, L500.2500, L503.6550, L503.6150, L3400.3800 #### [facility] [address] [place], [address] CO2 [Moles/Vol] 29.0 mmol/L Normal 21.0-32.0 [facility] Comment on above: Performed By: #### L 503.6075, L100.0100, L500.2500, L503.6550, L503.6150, L3400.3800 #### [facility] [address] [place], [address] Creatinine [Mass/Vol] 1.24 mg/dL Normal 0.70-1.30 [facility] Comment on above: Result Comment: The validity of the calculated GFR GFRAA in patients over 70 years has not been determined. Clinical correlation is essential. Performed By: #### L 503.6075, L100.0100, L500.2500, L503.6550, L503.6150, L3400.3800 #### [facility] [address] [place], [address] EST GFR - AA 75 mL/min Normal >60 [facility] Comment on above: Result Comment: Afri can [place] GFR Calc Performed By: #### L 503.6075, L100.0100, L500.2500, L503.6550, L503.6150, L3400.3800 #### [facility] [address] [place], [address] GAP 5 Normal 5-15 [facility] Comment on above: Performed By: #### L 503.6075, L100.0100, L500.2500, L503.6550, L503.6150, L3400.3800 #### [facility] [address] [place], [address] GFR/1.73 sq M.predicted among non-blacks MDRD (S/P/Bld) [Vol rate/Area] 62 mL/min/{1.73_m2} Normal >60 [facility] Comment on above: Result Comment: Non- GFR Calc Performed By: #### L 503.6075, L100.0100, L500.2500, L503.6550, L503.6150, L3400.3800 #### [facility] [address] [place], [address] Glucose [Mass/Vol] 96 mg/dL Normal 74-106 [facility] Comment on above: Performed By: #### L 503.6075, L100.0100, L500.2500, L503.6550, L503.6150, L3400.3800 #### [facility] [address] [place], [address] Potassium [Moles/Vol] 4.2 mmol/L Normal 3.5-5.1 [facility] Comment on above: Performed By: #### L 503.6075, L100.0100, L500.2500, L503.6550, L503.6150, L3400.3800 #### [facility] [address] [place], [address] Sodium [Moles/Vol] 138 mmol/L Normal 136-145 [facility] Comment on above: Performed By: #### L 503.6075, L100.0100, L500.2500, L503.6550, L503.6150, L3400.3800 #### [facility] [address] [place], [address] Urea nitrogen [Mass/Vol] 25 mg/dL High 7-18 [facility] Comment on above: Performed By: #### L 503.6075, L100.0100, L500.2500, L503.6550, L503.6150, L3400.3800 #### [facility] [address] [place], [address] CBC W/Diff, Automatedon 04-25 Absolute Lymph 1.89 X10 3/uL Normal 0.83-4.51 [facility] Comment on above: Performed By: #### L 503.6075, L100.0100, L500.2500, L503.6550, L503.6150, L3400.3800 #### [facility] [address] [place], [address] Absolute Neut 3.6 X10 3/uL Normal 2.0-7.7 [facility] Comment on above: Performed By: #### L 503.6075, L100.0100, L500.2500, L503.6550, L503.6150, L3400.3800 #### [facility] [address] [place], [address] Basophils/100 WBC (Bld) 1.6 % High 0-1 [facility] Comment on above: Performed By: #### L 503.6075, L100.0100, L500.2500, L503.6550, L503.6150, L3400.3800 #### [facility] [address] [place], [address] Eosinophils/100 WBC (Bld) 3.3 % Normal 0-5 [facility] Comment on above: Performed By: #### L 503.6075, L100.0100, L500.2500, L503.6550, L503.6150, L3400.3800 #### [facility] [address] [place], [address] Erythrocyte distribution width (RBC) [Ratio] 15.2 % High 11.6-14.6 [facility] Comment on above: Performed By: #### L 503.6075, L100.0100, L500.2500, L503.6550, L503.6150, L3400.3800 #### [facility] [address] [place], [address] Hematocrit (Bld) [Volume fraction] 42.9 % Normal 40-54 [facility] Comment on above: Performed By: #### L 503.6075, L100.0100, L500.2500, L503.6550, L503.6150, L3400.3800 #### [facility] [address] [place], [address] Hemoglobin (Bld) [Mass/Vol] 13.3 g/dL Normal 13.0-16.5 [facility] Comment on above: Performed By: #### L 503.6075, L100.0100, L500.2500, L503.6550, L503.6150, L3400.3800 #### [facility] [address] [place], [address] IG% 0.200 Normal 0.0-0.9 [facility] Comment on above: Result Comment: IG% - Immature Granulocytes (promyelocytes, myelocytes and metamyelocytes) > 1% indicates that a LEFT SHIFT is Present. Performed By: #### L 503.6075, L100.0100, L500.2500, L503.6550, L503.6150, L3400.3800 #### [facility] [address] [facility] [place], [address] Lymphocytes/100 WBC (Bld) 29.6 % Normal 19-41 [facility] Comment on above: Performed By: #### L 503.6075, L100.0100, L500.2500, L503.6550, L503.6150, L3400.3800 #### [facility] [address] [place], [address] MCH (RBC) [Entitic mass] 25.5 pg Low 27.0-32.0 [facility] Comment on above: Performed By: #### L 503.6075, L100.0100, L500.2500, L503.6550, L503.6150, L3400.3800 #### [facility] [address] [place], [address] MCHC (RBC) [Mass/Vol] 31.0 g/dL Low 32-36 [facility] Comment on above: Performed By: #### L 503.6075, L100.0100, L500.2500, L503.6550, L503.6150, L3400.3800 #### [facility] [address] [place], [address] MCV (RBC) [Entitic vol] 82.3 fL Normal 80-94 [facility] Comment on above: Performed By: #### L 503.6075, L100.0100, L500.2500, L503.6550, L503.6150, L3400.3800 #### [facility] [address] [place], [address] Monocytes/100 WBC (Bld) 8.9 % Normal 0-10 [facility] Comment on above: Performed By: #### L 503.6075, L100.0100, L500.2500, L503.6550, L503.6150, L3400.3800 #### [facility] [address] [place], [address] Neutrophils/100 WBC (Bld) 56.4 % Normal 47-70 [facility] Comment on above: Performed By: #### L 503.6075, L100.0100, L500.2500, L503.6550, L503.6150, L3400.3800 #### [facility] [address] [place], [address] Nucleated RBC (Bld) [#/Vol] 0 10*3/uL Normal 0-5 [facility] Comment on above: Performed By: #### L 503.6075, L100.0100, L500.2500, L503.6550, L503.6150, L3400.3800 #### [facility] [address] [place], [address] Platelet mean volume (Bld) [Entitic vol] 10.8 fL Normal 6.2-12.0 [facility] Comment on above: Performed By: #### L 503.6075, L100.0100, L500.2500, L503.6550, L503.6150, L3400.3800 #### [facility] [address] [place], [address] Platelets (Bld) [#/Vol] 259 10*3/uL Normal 150-450 [facility] Comment on above: Performed By: #### L 503.6075, L100.0100, L500.2500, L503.6550, L503.6150, L3400.3800 #### [facility] [address] [place], [address] RBC (Bld) [#/Vol] 5.21 10*6/uL Normal 4.6-6.2 [facility] Comment on above: Performed By: #### L 503.6075, L100.0100, L500.2500, L503.6550, L503.6150, L3400.3800 #### [facility] [address] [place], [address] RDW SD 45.8 fl High 35.1-43.9 [facility] Comment on above: Performed By: #### L 503.6075, L100.0100, L500.2500, L503.6550, L503.6150, L3400.3800 #### [facility] [address] [place], [address] WBC (Bld) [#/Vol] 6.4 10*3/uL Normal 4.4-11.0 [facility] Comment on above: Performed By: #### L 503.6075, L100.0100, L500.2500, L503.6550, L503.6150, L3400.3800 #### [facility] [address] [place], [address] Cardiology Visit Reporton Cardiology Visit Report [facility] [address] [place] [address] OFFICE VISIT Date of Service: 05/15/24 MR#: [id number] Acct: [id number] Name: TRE QUIÑONES Rep #: [id number] : 1955 Provider: JOHNNA lira Age/Sex: 69/M Location: [facility] [place] Status: Signed HPI HPI History of Present Illness Details: TRE QUIÑONES, is a 69 M who presents to the office today for a follow-up visit as well as a revisit and second opinion.. He is a gentleman with history of atrial tachyarrhythmia status post ablation in 2005, 2017 and more recently in August 2018. He had initially presented with sinus bradycardia on the beta-damian had experienced some chest discomfort and underwent a cardiac catheterization with demonstrated essentially normal coronary arteries. 24-hour Holter monitor demonstrated periods of atrial fibrillation and flutter. He was sent to the [facility]. The more recent evaluation demonstrated areas of atrial flutter in the tricuspid annulus region. He also subsequently had a permanent pacemaker implanted after his radio frequency ablation in 2017. He had started experiencing more atrial arrhythmias once again and he was sent back to [facility]. It was felt after discussing all the options that the sotalol should be discontinued and he was started on amiodarone. He had been following up at the [facility] due to insurance issues. He had a stress test in 2020. He did have an echocardiogram performed on September 13 at the [facility] and he was recorded to have a moderately dilated left ventricle with estimated ejection fraction of 60 to 65% right ventricle with a pacemaker placed in mitral valve which was normal with severe mitral regurgitation. He had echocardiogram in October 2023 at [facility] that showed ejection fraction of 60% and moderately severe eccentric mitral valve insufficiency. Transesophageal echocardiogram on 11/21/2023 showed severe mitral valve insufficiency. Heart catheterization on 11/21/2023 showed angiographically normal coronary arteries. He was seen with [facility], Dr. Diamond in January 2024. Mitral valve annuloplasty with size 33 mm Suazo annuloplasty band and corknot, tricuspid valve annuloplasty with size 31 mm Teddy annular plasty band, biatrial maze and radiofrequency and cryoablation, and left atrial appendage closure with a size 35 mm Atriclip. Postoperatively his recovery was challenged by PEA arrest with resuscitation. Echocardiogram on 01/29/2024 showed LV function 55???5%, mildly dilated right ventricle, #33 [place] mitral valve annuloplasty ring with trace mitral valve regurgitation, peak mitral valve gradient 15 mmHg, mean mitral valve gradient is 6 mmHg at a heart rate of 101 bpm, #31 during tricuspid valve annuloplasty ring with trace tricuspid valve regurgitation, peak tricuspid valve gradient 9 mmHg, and mean tricuspid valve gradient of 4 mmHg. Device check prior to discharge showed atrial fibrillation. It was recommended continue amiodarone, metoprolol, and resume Xarelto upon discharge. He acknowledges lower chest soreness that is worse when sneezing and coughing. He states he had a rib out of place that was readjusted to help his pain. He acknowledges palpitations when he first lies down after activity. He describes this as fast and fluttering. This is improved from previous. He acknowledges occasional lower extremity edema that is also improved compared to previous. He notes shortness of breath when walking long distance. He denies shortness of breath at rest or orthopnea. He denies lightheadedness, dizziness, near-syncope, or syncope. He acknowledges fatigue. Intake Vital Signs 10/27/23 10:54 04/29/24 08:50 05/15/24 09:12 Height 6 ft 6 ft 6 ft Weight: 315 lb BMI 42.7 BP 99/66 Blood Pressure Location Lt brachial Position Sitting Respiration 18 Pulse 62 Pulse Source NIBP Intake Visit Reasons: 6 M FU [employer] Operator Required: No Accompanied by: Is patient in pain?: Yes (Lower chest soreness from surgery-increased with coughing) Pain scale (1- 10): 5 Allergies Environmental Allergies: Uncoded (hay fever) Allergy (Verified 05/15/24 09:15) wheezing, cough Medications ???Medication ???Instructions ???Recorded ???Confirmed ???Type albuterol sulfate 90 mcg/actuation 2 puff inhalation Q6H PRN PRN 07/21/17 05/15/24 History aerosol inhaler Wheezing/SOB lisinopril 20 mg tablet 20 mg PO DAILY 05/23/18 05/15/24 History amiodarone 200 mg tablet 200 mg PO DAILY #90 tabs 05/24/21 05/15/24 Rx tadalafil 5 mg tablet 5 mg PO DAILY 12/19/22 05/15/24 History rivaroxaban 20 mg tablet 20 mg PO QHS 03/20/23 05/15/24 History cholecalciferol (vitamin D3) 50 50 mcg PO DAILY 10/27/23 05/15/24 History mcg (2,000 unit) cap (more content not included)... Normal [facility] Ferritinon 05-15-2024 Ferritin [Mass/Vol] 22 ng/mL Low 26-388 [facility] Comment on above: Performed By: #### L 503.6075, L100.0100, L500.2500, L503.6550, L503.6150, L3400.3800 ####[facility] [address] [place], [address] Ironon 05-15-2024 Iron [Mass/Vol] 46 ug/dL Low 65-175 [facility] Comment on above: Performed By: #### L 503.6075, L100.0100, L500.2500, L503.6550, L503.6150, L3400.3800 ####[facility] [address] [place], [address] Iron Binding Capacity,Totalo n 05-15-2024 TIBC 416 ug/dL Normal 250-450 [facility] Comment on above: Performed By: #### L 503.6075, L100.0100, L500.2500, L503.6550, L503.6150, L3400.3800 ####[facility] [address] [place], [address] Chest PA and Lateralon 04-18 Chest PA and Lateral [facility] [address] [place] [address] Chest PA and Lateral MR#: [id number] Acct: [id number] Name: QUIÑONESTRE Rep #: [id number] : 1955 [place] 69 From: Vick Matthews MD PCP: [facility] Status: [facility] ER Study: Chest PA and Lateral Date of Exam: 04/18/24 Exam# [id number] Ordering Dr: Sowmya Pryor [id number] EXAM: XR CHEST, 2 VIEWS CLINICAL INDICATION: Cough. TECHNIQUE: Frontal and lateral views of the chest. COMPARISON: 02/14/2024. FINDINGS: LUNGS AND PLEURAL SPACES: Unremarkable. No consolidation or edema. No pneumothorax. No effusion. HEART: Aortic valve prosthesis was also present previously. MEDIASTINUM: Central airways and mediastinal contour are unremarkable. BONES/JOINTS: Intact sternal wires. No acute fracture. SOFT TISSUES: Unremarkable. TUBES, LINES AND DEVICES: Patient lead tips remain in the right atrium and right ventricle. RAD/Chest PA and Lateral IMPRESSION: No acute findings in the chest and unchanged. Electronically Signed: Vick Matthews MD at 12:45 EST , CC: RODRICK Rocha; [facility] Mechatronics Engineer: Signed Normal [facility] Emergency Department Summary on 04-18-2024 Emergency Department Summary [facility] Medical Records Department [address] [place] [id number] Emergency Department Summary 04/18/24 MR#: [id number] Acct: [id number] Name: TRE QUIÑONES Rep #: [id number] : 1955 69 From: Sowmya MENSAH PCP: [facility] Status:DEP ER Location: ED HPI History of Present Illness Chief Complaint: Shortness of Breath Narrative Narrative: Patient presenting today with nasal congestion, sore throat, wheezing, body aches, a productive cough with green-colored sputum, and dyspnea with exertion he has had this over the past 2 days. He does have a history of asthma, he feels like his asthma is flared. He denies fevers, chills, chest pain, abdominal pain, nausea, and vomiting. He has a PMH of A-fib on Xarelto, HTN, pacemaker placement, asthma, and CHF. [facility] Medical History History of pacemaker Wears hearing aid Wears glasses PTSD (post-traumatic stress disorder) Anxiety Arthritis Vertigo Former smoker CPAP (continuous positive airway pressure) dependence History of pain when walking History of stress test Hypertension History of echocardiogram Cardiology follow-up encounter History of atrial fibrillation Acute posterior anal fissure Hemorrhoids, internal, with bleeding Paroxysmal atrial fibrillation Secondary pulmonary arterial hypertension Essential (primary) hypertension Chronic diastolic (congestive) heart failure Asthma Sick sinus syndrome Atypical atrial flutter Bradycardia Morbid obesity with BMI of 40.0-44.9, adult Home Medications ???Medication ???Instructions ???Recorded ???Last Taken ???Type albuterol sulfate 90 mcg/actuation 2 puff inhalation Q6H PRN PRN 07/21/17 07/18/17 History aerosol inhaler Wheezing/SOB lisinopril 20 mg tablet 20 mg PO DAILY 05/23/18 11/21/23 History amiodarone 200 mg tablet 200 mg PO DAILY #90 tabs 05/24/21 11/21/23 Rx tadalafil 5 mg tablet 5 mg PO DAILY 12/19/22 11/19/23 History rivaroxaban 20 mg tablet 20 mg PO QHS 03/20/23 11/16/23 History cholecalciferol (vitamin D3) 50 50 mcg PO DAILY 10/27/23 Unknown History mcg (2,000 unit) capsule eplerenone 25 mg tablet (Inspra) 12.5 mg (1/2 x 25 mg) PO DAILY #30 11/13/23 Unknown Rx tabs acetaminophen 325 mg capsule 325 mg PO ONCE PRN 02/14/24 Unknown History diclofenac sodium 1 % topical gel 2 g topical ONCE PRN 02/14/24 Unknown History (Voltaren Arthritis Pain) empagliflozin 25 mg tablet 12.5 mg PO QAM 02/14/24 Unknown History aspirin 325 mg tablet,delayed 325 mg PO QDAY 02/19/24 Unknown History release furosemide 40 mg tablet 40 mg PO .COMPLEX #60 tabs 02/19/24 Unknown Rx potassium gluconate 595 mg (99 mg) 595 mg PO QDAY 02/19/24 Unknown History tablet metoprolol succinate 50 mg 50 mg PO QDAY #90 tabs 03/13/24 Unknown Rx tablet,extended release 24 hr prednisone 20 mg tablet 40 mg (2 x 20 mg) PO DAILY 5 days 04/18/24 Unknown Rx #10 tabs Allergy/AdvReac Type Severity Reaction Status Date / Time Environmental Allergies: Allergy wheezing, Verified 04/18/24 10:25 Uncoded (hay fever) cough Family History Mother Diabetes Hypertension Father Cancer prostate Other CVA (cerebral vascular accident) Surgical History History of open heart surgery S/P hernia repair S/P total knee replacement (08/08/23) History of umbilical hernia repair Hx of laparoscopy Status post bilateral hernia repair History of colonoscopy (11/25/19) History of hemorrhoidectomy History of left heart catheterization (07/21/17) Presence of permanent cardiac pacemaker (12/01/17) History of cardioversion (06/11/18) History of cardiac radiofrequency ablation (08/24/18) Social History household members: spouse Smoking Status: Former smoker substance use type: does not use ROS ROS ED Constitutional Constitutional ED: Denies chills or fever(s) Cardiovascular Cardiovascular: Denies chest pain Respiratory/Chest Respiratory/Chest: Reports cough, dyspnea on exertion, sputum and wheezing Gastrointestinal Gastrointestinal: Denies abdominal pain, nausea or vomiting Musculoskeletal Musculoskeletal: Reports myalgias Integumentary Denies rash Neurologic Neurologic: Denies weakness EXAM Physical Exam Const Vital Signs: 04/18/24 10:25 04/18/24 10:43 04/18/24 11:42 Temperature 98.7 F Temperature Source Oral Pulse Rate 62 60 Respiratory Rate 14 20 H Respiratory Effort Short of Breath Respiratory Depth Normal Respiratory Pattern Tachypnea Normal Blood Pressure 152/97 H Blood Pressure Mean 115 Pulse Ox 97 O (more content not included)... Normal [facility] M100.678on 04-18-2024 M100.678 Pending SARS-CoV-2 (COVID 19) Negative INFLUENZA A Negative INFLUENZA B Negative RSV PCR Negative Normal [facility] Comment on above: Performed By: #### M 100.678 ####[facility] [address] [place], [place], [id number] Pacemaker Checkon 03-13-2024 Pacemaker Check [facility] [address] [place], [place] [address] Pacemaker Check Date of Service: 03/13/24 1706 MR#: [id number] Acct: [id number] Name: TRE QUIÑONES Rep #: [id number] : 1955 From: Jolene Larkin Age/Sex: 69/M [place] [facility] [place]: Signed Billing Codes PM Device Codes: 78031 PM Dev Prog Eval, Dual Assessment and Plan Assessment and Plan (1) Tachycardia: Status: Acute (2) Presence of permanent cardiac pacemaker: Status: Chronic (3) Sick sinus syndrome: Status: Chronic (4) Atypical atrial flutter: Status: Chronic Comment: RFA 2005, 2017, 2018 (5) Paroxysmal atrial fibrillation: Status: Chronic Medications: New metoprolol succinate ER 50 mg PO QDAY 90 tabs 3RF Discontinued metoprolol succinate ER Discontinued Reason: Order Changed 50 mg PO BID 60 tabs 11RF 03/13/24 1707 Date Jolene Traeadriano Staples Signature: Date (if applicable) CC: Normal [facility] CNPN Normal [facility] BNP,B-Type NATRIURETIC PEPTI Garrett 03-01-2024 Natriuretic peptide B (Bld) [Mass/Vol] 167.5 pg/mL High 0-100 [facility] Comment on above: Performed By: #### L 501.5200, L100.0100, L500.4050, L503.6620, L501.9520 ####[facility] [address] [place], [address] CBC W/Diff, Automatedon 11 Absolute Lymph 1.63 X10 3/uL Normal 0.83-4.51 [facility] Comment on above: Performed By: #### L 501.5200, L100.0100, L500.4050, L503.6620, L501.9520 ####[facility] [address] [place], [address] Absolute Neut 4.4 X10 3/uL Normal 2.0-7.7 [facility] Comment on above: Performed By: #### L 501.5200, L100.0100, L500.4050, L503.6620, L501.9520 ####[facility] [address] [place], [address] Basophils/100 WBC (Bld) 1.4 % High 0-1 [facility] Comment on above: Performed By: #### L 501.5200, L100.0100, L500.4050, L503.6620, L501.9520 ####[facility] [address] [place], [address] Eosinophils/100 WBC (Bld) 5.8 % High 0-5 [facility] Comment on above: Performed By: #### L 501.5200, L100.0100, L500.4050, L503.6620, L501.9520 ####[facility] [address] [place], [address] Erythrocyte distribution width (RBC) [Ratio] 14.4 % Normal 11.6-14.6 [facility] Comment on above: Performed By: #### L 501.5200, L100.0100, L500.4050, L503.6620, L501.9520 ####[facility] [address] [place], [address] Hematocrit (Bld) [Volume fraction] 33.2 % Low 40-54 [facility] Comment on above: Performed By: #### L 501.5200, L100.0100, L500.4050, L503.6620, L501.9520 ####[facility] [address] [place], [address] Hemoglobin (Bld) [Mass/Vol] 10.1 g/dL Low 13.0-16.5 [facility] Comment on above: Performed By: #### L 501.5200, L100.0100, L500.4050, L503.6620, L501.9520 ####[facility] [address] [place], [address] IG% 0.400 Normal 0.0-0.9 [facility] Comment on above: Result Comment: IG% - Immature Granulocytes (promyelocytes, myelocytes and metamyelocytes) > 1% indicates that a LEFT SHIFT is Present. Performed By: #### L 501.5200, L100.0100, L500.4050, L503.6620, L501.9520 ####[facility] [address] [place], [address] Lymphocytes/100 WBC (Bld) 22.0 % Normal 19-41 [facility] Comment on above: Performed By: #### L 501.5200, L100.0100, L500.4050, L503.6620, L501.9520 ####[facility] [address] [place], [address] MCH (RBC) [Entitic mass] 27.2 pg Normal 27.0-32.0 [facility] Comment on above: Performed By: #### L 501.5200, L100.0100, L500.4050, L503.6620, L501.9520 ####[facility] [address] [place], [address] MCHC (RBC) [Mass/Vol] 30.4 g/dL Low 32-36 [facility] Comment on above: Performed By: #### L 501.5200, L100.0100, L500.4050, L503.6620, L501.9520 ####[facility] [address] [place], [address] MCV (RBC) [Entitic vol] 89.2 fL Normal 80-94 [facility] Comment on above: Performed By: #### L 501.5200, L100.0100, L500.4050, L503.6620, L501.9520 ####[facility] [address] [place], [address] Monocytes/100 WBC (Bld) 11.5 % High 0-10 [facility] Comment on above: Performed By: #### L 501.5200, L100.0100, L500.4050, L503.6620, L501.9520 ####[facility] [address] [place], [address] Neutrophils/100 WBC (Bld) 58.9 % Normal 47-70 [facility] Comment on above: Performed By: #### L 501.5200, L100.0100, L500.4050, L503.6620, L501.9520 ####[facility] [address] [place], [address] Nucleated RBC (Bld) [#/Vol] 0 10*3/uL Normal 0-5 [facility] Comment on above: Performed By: #### L 501.5200, L100.0100, L500.4050, L503.6620, L501.9520 ####[facility] [address] [place], [address] Platelet mean volume (Bld) [Entitic vol] 10.4 fL Normal 6.2-12.0 [facility] Comment on above: Performed By: #### L 501.5200, L100.0100, L500.4050, L503.6620, L501.9520 ####[facility] [address] [place], [address] Platelets (Bld) [#/Vol] 239 10*3/uL Normal 150-450 [facility] Comment on above: Performed By: #### L 501.5200, L100.0100, L500.4050, L503.6620, L501.9520 ####[facility] [address] [place], [address] RBC (Bld) [#/Vol] 3.72 10*6/uL Low 4.6-6.2 [facility] Comment on above: Performed By: #### L 501.5200, L100.0100, L500.4050, L503.6620, L501.9520 ####[facility] [address] [place], [address] RDW SD 46.4 fl High 35.1-43.9 [facility] Comment on above: Performed By: #### L 501.5200, L100.0100, L500.4050, L503.6620, L501.9520 ####[facility] [address] [place], [address] WBC (Bld) [#/Vol] 7.4 10*3/uL Normal 4.4-11.0 [facility] Comment on above: Performed By: #### L 501.5200, L100.0100, L500.4050, L503.6620, L501.9520 ####[facility] [address] [place], [address] Comprehensive [facility] 03-01-2024 Albumin [Mass/Vol] 3.8 g/dL Normal 3.2-5.0 [facility] Comment on above: Performed By: #### L 501.5200, L100.0100, L500.4050, L503.6620, L501.9520 ####[facility] [address] [place], [address] Albumin/Globulin [Mass ratio] 1.3 {ratio} Normal 0.9-2.4 [facility] Comment on above: Performed By: #### L 501.5200, L100.0100, L500.4050, L503.6620, L501.9520 ####[facility] [address] [place], [address] ALK P 64 U/L Normal 45-117 [facility] Comment on above: Performed By: #### L 501.5200, L100.0100, L500.4050, L503.6620, L501.9520 ####[facility] [address] [place], [address] ALT [Catalytic activity/Vol] 24 U/L Normal 16-61 [facility] Comment on above: Performed By: #### L 501.5200, L100.0100, L500.4050, L503.6620, L501.9520 ####[facility] [address] [place], [address] AST [Catalytic activity/Vol] 12 U/L Low 15-37 [facility] Comment on above: Performed By: #### L 501.5200, L100.0100, L500.4050, L503.6620, L501.9520 ####[facility] [address] [place], [address] Bilirubin [Mass/Vol] 0.40 mg/dL Normal 0.20-1.00 [facility] Comment on above: Result Comment: For patients on eltrombopag therapy, use of Dimension [place] TBIL is not recommended. Performed By: #### L 501.5200, L100.0100, L500.4050, L503.6620, L501.9520 ####[facility] [address] [place], [address] BUN/CRE 21.7 RATIO High 10-20 [facility] Comment on above: Performed By: #### L 501.5200, L100.0100, L500.4050, L503.6620, L501.9520 ####[facility] [address] [place], [address] CA,Total 9.3 mg/dL Normal 8.5-10.1 [facility] Comment on above: Performed By: #### L 501.5200, L100.0100, L500.4050, L503.6620, L501.9520 ####[facility] [address] [place], [address] Chloride [Moles/Vol] 110 mmol/L High 98-107 [facility] Comment on above: Performed By: #### L 501.5200, L100.0100, L500.4050, L503.6620, L501.9520 ####[facility] [address] [place], [address] CO2 [Moles/Vol] 29.0 mmol/L Normal 21.0-32.0 [facility] Comment on above: Performed By: #### L 501.5200, L100.0100, L500.4050, L503.6620, L501.9520 ####[facility] [address] [place], [address] Creatinine [Mass/Vol] 1.06 mg/dL Normal 0.70-1.30 [facility] Comment on above: Result Comment: The validity of the calculated GFR GFRAA in patients over 70 years has not been determined. Clinical correlation is essential. Performed By: #### L 501.5200, L100.0100, L500.4050, L503.6620, L501.9520 ####[facility] [address] [place], [address] EST GFR - AA 90 mL/min Normal >60 [facility] Comment on above: Result Comment: Afri can Bur[place]ian GFR Calc Performed By: #### L 501.5200, L100.0100, L500.4050, L503.6620, L501.9520 ####[facility] [address] [place], [address] GAP 3 Low 5-15 [facility] Comment on above: Performed By: #### L 501.5200, L100.0100, L500.4050, L503.6620, L501.9520 ####[facility] [address] [place], [address] GFR/1.73 sq M.predicted among non-blacks MDRD (S/P/Bld) [Vol rate/Area] 74 mL/min/{1.73_m2} Normal >60 [facility] Comment on above: Result Comment: Non- GFR Calc Performed By: #### L 501.5200, L100.0100, L500.4050, L503.6620, L501.9520 ####[facility] [address] [place], [address] Globulin (S) [Mass/Vol] 3.0 g/dL Normal 2.2-4.2 [facility] Comment on above: Performed By: #### L 501.5200, L100.0100, L500.4050, L503.6620, L501.9520 ####[facility] [address] [place], [address] Glucose [Mass/Vol] 101 mg/dL Normal 74-106 [facility] Comment on above: Result Comment: Fast ing Glucose result from 100 to 125 mg/dL suggests IMPAIRED HOMEOSTASIS per A.D.A. criteria. Performed By: #### L 501.5200, L100.0100, L500.4050, L503.6620, L501.9520 ####[facility] [address] [place], [address] Potassium [Moles/Vol] 3.9 mmol/L Normal 3.5-5.1 [facility] Comment on above: Performed By: #### L 501.5200, L100.0100, L500.4050, L503.6620, L501.9520 ####[facility] [address] [place], [address] Sodium [Moles/Vol] 142 mmol/L Normal 136-145 [facility] Comment on above: Performed By: #### L 501.5200, L100.0100, L500.4050, L503.6620, L501.9520 ####[facility] [address] [place], [address] T PROT 6.8 g/dL Normal 6.4-8.2 [facility] Comment on above: Performed By: #### L 501.5200, L100.0100, L500.4050, L503.6620, L501.9520 ####[facility] [address] [place], [address] Urea nitrogen [Mass/Vol] 23 mg/dL High 7-18 [facility] Comment on above: Performed By: #### L 501.5200, L100.0100, L500.4050, L503.6620, L501.9520 ####[facility] [address] [place], [address] Magnesiumon 03-01-2024 Magnesium [Mass/Vol] 2.9 mg/dL High 1.6-2.6 [facility] Comment on above: Performed By: #### L 501.5200, L100.0100, L500.4050, L503.6620, L501.9520 ####[facility] [address] [place], [address] Thyroid Stim Hormone (TSH)on 03-01-2024 TSH 0.805 uIU/mL Normal 0.358-3.740 [facility] Comment on above: Performed By: #### L 501.5200, L100.0100, L500.4050, L503.6620, L501.9520 ####[facility] [address] [place], [address] CR - History AND Physicalon 02-28-2024 CR - History & Physical [facility] Cardiac Rehab [address] [place] [address] CR - History Physical MR#: [id number] Acct: [id number] Name: TRE QUIÑONES Rep #: [id number] : 1955 69 From: Darryl Aj BS, RVT PCP: [facility] DOS: 02/28/24 CR - History Physical General Arrival date:: 02/28/24 Arrival time:: 08:02 Date of Referral:: 02/20/24 Date of CR Evaluation:: 02/28/24 Referring Physician: Dr. Wray Primary Diagnosis: Heart valve repair History of Present Cardiac Event Onset Date Heart valve replacement or repair:: Yes (01/23/24 onset) Medications Ambulatory Orders ???Medication ???Instructions ???Recorded albuterol sulfate 90 mcg/actuation 2 puff inhalation Q6H PRN PRN 07/21/17 aerosol inhaler Wheezing/SOB lisinopril 20 mg tablet 20 mg PO DAILY 05/23/18 amiodarone 200 mg tablet 200 mg PO DAILY #90 tabs 05/24/21 tadalafil 5 mg tablet 5 mg PO DAILY 12/19/22 rivaroxaban 20 mg tablet 20 mg PO QHS 03/20/23 cholecalciferol (vitamin D3) 50 50 mcg PO DAILY 10/27/23 mcg (2,000 unit) capsule metoprolol succinate 50 mg 50 mg PO DAILY 10/27/23 tablet,extended release 24 hr eplerenone 25 mg tablet (Inspra) 12.5 mg (1/2 x 25 mg) PO DAILY #30 11/13/23 tabs acetaminophen 325 mg capsule 325 mg PO ONCE PRN 02/14/24 diclofenac sodium 1 % topical gel 2 g topical ONCE PRN 02/14/24 (Voltaren Arthritis Pain) empagliflozin 25 mg tablet 12.5 mg PO QAM 02/14/24 aspirin 325 mg tablet,delayed 325 mg PO QDAY 02/19/24 release furosemide 40 mg tablet 40 mg PO .COMPLEX #60 tabs 02/19/24 potassium gluconate 595 mg (99 mg) 595 mg PO QDAY 02/19/24 tablet Allergies Allergies Environmental Allergies: Uncoded (hay fever) Allergy (Verified 02/14/24 09:13) wheezing, cough Dust, ragweed, grass Sleep Disorder Evaluation Hx of Sleep Apnea: Yes Do you snore loudly (louder than talking or can be heard through closed doors)?: No Do you often feel tired/ fatigued/ sleepy during daytime?: No Has anyone observed you stop breathing during sleep?: No History of Hypertension (for STOP score): Yes (on CPAP) STOP Results: Negative Advanced Directives Advanced Directives Power of Press Supervisor: Yes Living Will: Yes Advance Directives Information Provided: Yes Advance Directives on File: Yes DNR Order?:: No Past Medical History Covid-19 Screening Physicial Symptoms Other Clinical Concerns Exposure Risk Pertinent Comorbidities 65 years or older:: Yes Has a chronic lung disease or moderate to severe asthma:: Yes Has a serious heart condition:: Yes Severely obese (Body Mass Index of 40 or higher):: Yes Past Medical Illness Medical History History of pacemaker Wears hearing aid Wears glasses PTSD (post-traumatic stress disorder) Anxiety Arthritis Vertigo Former smoker CPAP (continuous positive airway pressure) dependence History of pain when walking History of stress test Hypertension History of echocardiogram Cardiology follow-up encounter History of atrial fibrillation Acute posterior anal fissure Hemorrhoids, internal, with bleeding Paroxysmal atrial fibrillation Secondary pulmonary arterial hypertension Essential (primary) hypertension Chronic diastolic (congestive) heart failure Asthma Sick sinus syndrome Atypical atrial flutter Bradycardia Morbid obesity with BMI of 40.0-44.9, adult Past Surgical History Surgical History S/P hernia repair S/P total knee replacement (08/08/23) History of umbilical hernia repair Hx of laparoscopy Status post bilateral hernia repair History of colonoscopy (11/25/19) History of hemorrhoidectomy History of left heart catheterization (07/21/17) Presence of permanent cardiac pacemaker (12/01/17) History of cardioversion (06/11/18) History of cardiac radiofrequency ablation (08/24/18) Surgical History: - (Bilateral arthroscopic surgery of the knees.) Family History Summary Family History Mother Diabetes Hypertension Father Cancer prostate Other CVA (cerebral vascular accident) Social History Smoking History Smoking Status: Former smoker Years Smokin Packs Smoked per Day: 3 (stopped over 40 years ago) Alcohol Use Alcohol Usage: Yes (rare) Occupation Occupation (List type of work in comments):: Retired Hobbies, Recreation, Social Activities Hobbies: Other (gonzalez, fish, camping) Recreational Activities: I am able to engage in a few activities Social Environment Status Marital Status: Current Living Arrangements Living Environment:: Spouse Children How many children do you have?: 1 Do any of your children live nearby?: Yes Safety Do you feel safe in your surroundings?: Yes Assistance Do you need any assistance at home (more content not included)... Normal [facility] Cardiology Visit Reporton Cardiology Visit Report [facility] [address] [place] [address] OFFICE VISIT Date of Service: 02/19/24 MR#: [id number] Acct: [id number] Name: TRE QUIÑONES Rep #: [id number] : 1955 Provider: JOHNNA lira Age/Sex: 69/M [place] [facility] [place]: Signed [facility] History of Present Illness Details: TRE QUIÑONES, is a 69 M who presents to the office today for a follow-up visit as well as a revisit and second opinion.. He is a gentleman with history of atrial tachyarrhythmia status post ablation in 2005, 2017 and more recently in August 2018. He had initially presented with sinus bradycardia on the beta-damian had experienced some chest discomfort and underwent a cardiac catheterization with demonstrated essentially normal coronary arteries. 24-hour Holter monitor demonstrated periods of atrial fibrillation and flutter. He was sent to the [facility]. The more recent evaluation demonstrated areas of atrial flutter in the tricuspid annulus region. He also subsequently had a permanent pacemaker implanted after his radio frequency ablation in 2018. He had started experiencing more atrial arrhythmias once again and he was sent back to [facility]. It was felt after discussing all the options that the sotalol should be discontinued and he was started on amiodarone. He had been following up at the [facility] due to insurance issues. He had a stress test in 2020. He did have an echocardiogram performed on September 13 at the [facility] and he was recorded to have a moderately dilated left ventricle with estimated ejection fraction of 60 to 65% right ventricle with a pacemaker placed in mitral valve which was normal with severe mitral regurgitation. He had echocardiogram in October 2023 at [facility] that showed ejection fraction of 60% and moderately severe eccentric mitral valve insufficiency. Transesophageal echocardiogram on 11/21/2023 showed severe mitral valve insufficiency. Heart catheterization on 11/21/2023 showed angiographically normal coronary arteries. He was seen with [facility], Dr. Diamond in January 2024. Mitral valve annuloplasty with size 33 mm Suazo annuloplasty band and corknot, tricuspid valve annuloplasty with size 31 mm Teddy annular plasty band, biatrial maze and radiofrequency and cryoablation, and left atrial appendage closure with a size 35 mm Atriclip. Postoperatively his recovery was challenged by PEA arrest with resuscitation. Echocardiogram on 01/29/2024 showed LV function 55???5%, mildly dilated right ventricle, #33 [place] mitral valve annuloplasty ring with trace mitral valve regurgitation, peak mitral valve gradient 15 mmHg, mean mitral valve gradient is 6 mmHg at a heart rate of 101 bpm, #31 during tricuspid valve annuloplasty ring with trace tricuspid valve regurgitation, peak tricuspid valve gradient 9 mmHg, and mean tricuspid valve gradient of 4 mmHg. Device check prior to discharge showed atrial fibrillation. It was recommended continue amiodarone, metoprolol, and resume Xarelto upon discharge. He acknowledges a central chest pain. He continues with palpitations that he describes as fast, irregular, and fluttering. This is improved. He acknowledges bilateral lower extremity edema that is improved with Lasix therapy. He denies claudication. He states shortness of breath with activity. He denies shortness of breath at rest, orthopnea, or PND. He denies chronic cough. He denies significant, sudden weight gain. He states dizziness associated with increase in Lasix. He acknowledges balance issues. He denies lightheadedness, near-syncope, or syncope. He denies blood in urine, blood in stool, or epistaxis. He denies fever with chills. He denies myalgia. He denies fatigue. His exercise level has remained stable. Intake Vital Signs 02/14/24 09:12 02/19/24 15:57 Height 6 ft 6 ft Weight: 319 lb 316 lb BMI 43.2 42.8 BP 107/61 107/58 L Blood Pressure Location Lt brachial Lt brachial Position Sitting Sitting Respiration 20 H 18 Pulse 69 69 Pulse Source NIBP NIBP Pulse Oximetry (%) 95 Oxygen Delivery Method room air Intake Visit Reasons: 1 [address] [employer] Operator Required: No Accompanied by: Is patient in pain?: Yes (Incisional sternal pain) Allergies Environmental Allergies: Uncoded (hay fever) Allergy (Verified 02/14/24 09:13) wheezing, cough Medications ???Medication ???Instructions ???Recorded ???Confirmed ???Type albuterol sulfate 90 mcg/actuation 2 puff inhalation Q6H PRN PRN 07/21/17 02/19/24 History aerosol inhaler Wheezing/SOB lisinopril 20 mg tablet 20 mg PO DAILY 05/23/18 02/19/24 History amiodarone 200 mg tablet 200 mg PO DAILY #90 tabs 05/24/21 02/19/24 Rx tadalafil 5 mg tablet 5 mg PO DAILY 12/19/22 02/19/24 Hist (more content not included)... Normal [facility] 12 Lead EKG performed by [facility] on 02-14-2024 12 Lead EKG performed by [facility] [address] [place] [address] 12 Lead EKG performed by [facility] 02/14/24 0938 MR#: [id number] Acct: [id number] Name: TRE QUIÑONES Rep #: [id number] : 1955 69 From: Evelyn Deleon SENIOR ARCHITECT/DESIGN MANAGER SENIOR ARCHITECT/DESIGN MANAGER-C Attending Dr: JOHNNA Thornton Status: DEP AMB Ordering Dr: Evelyn Deleon NP SENIOR ARCHITECT/DESIGN MANAGER-C Date: 02/14/24 [place] [facility] Sex: M C Admitted: [facility]/12 Lead EKG performed by [facility] ECG Report Interpretation -----Electronic ventricular pacemaker Pacemaker ECG, No further analysis INSUFFICIENT DATAElectronically signed on 02/15/2024 at 08:43 by Omer Wray Software Version [id number] 02/15/24846 Date Evelyn Deleon NP SENIOR ARCHITECT/DESIGN MANAGER-C CC: [facility] Date Dictated: 02/14/24937 Date Transcribed: 02/14/24937 Mechatronics Engineer: SEGUNDO Signed Normal [facility] BNP,B-Type NATRIURETIC PEPTI Garrett 02-14-2024 Natriuretic peptide B (Bld) [Mass/Vol] 459.5 pg/mL High 0-100 [facility] Comment on above: Performed By: #### L 100.0100, L501.5200, L500.4050, L503.6620 ####[facility] [address] [place], [address] CBC W/Diff, Automatedon 01-23 Absolute Lymph 1.37 X10 3/uL Normal 0.83-4.51 [facility] Comment on above: Performed By: #### L 100.0100, L501.5200, L500.4050, L503.6620 ####[facility] [address] [place], [address] Absolute Neut 5.3 X10 3/uL Normal 2.0-7.7 [facility] Comment on above: Performed By: #### L 100.0100, L501.5200, L500.4050, L503.6620 ####[facility] [address] [place], [address] Basophils/100 WBC (Bld) 1.4 % High 0-1 [facility] Comment on above: Performed By: #### L 100.0100, L501.5200, L500.4050, L503.6620 ####[facility] [address] [place], [address] Eosinophils/100 WBC (Bld) 3.4 % Normal 0-5 [facility] Comment on above: Performed By: #### L 100.0100, L501.5200, L500.4050, L503.6620 ####[facility] [address] [place], [address] Erythrocyte distribution width (RBC) [Ratio] 15.0 % High 11.6-14.6 [facility] Comment on above: Performed By: #### L 100.0100, L501.5200, L500.4050, L503.6620 ####[facility] [address] [place], [address] Hematocrit (Bld) [Volume fraction] 32.7 % Low 40-54 [facility] Comment on above: Performed By: #### L 100.0100, L501.5200, L500.4050, L503.6620 ####[facility] [address] [place], [address] Hemoglobin (Bld) [Mass/Vol] 10.0 g/dL Low 13.0-16.5 [facility] Comment on above: Performed By: #### L 100.0100, L501.5200, L500.4050, L503.6620 ####[facility] [address] [place], [address] IG% 0.600 Normal 0.0-0.9 [facility] Comment on above: Result Comment: IG% - Immature Granulocytes (promyelocytes, myelocytes and metamyelocytes) > 1% indicates that a LEFT SHIFT is Present. Performed By: #### L 100.0100, L501.5200, L500.4050, L503.6620 ####[facility] [address] [place], [address] Lymphocytes/100 WBC (Bld) 17.3 % Low 19-41 [facility] Comment on above: Performed By: #### L 100.0100, L501.5200, L500.4050, L503.6620 ####[facility] [address] [place], [address] MCH (RBC) [Entitic mass] 27.5 pg Normal 27.0-32.0 [facility] Comment on above: Performed By: #### L 100.0100, L501.5200, L500.4050, L503.6620 ####[facility] [address] [place], [address] MCHC (RBC) [Mass/Vol] 30.6 g/dL Low 32-36 [facility] Comment on above: Performed By: #### L 100.0100, L501.5200, L500.4050, L503.6620 ####[facility] [address] [place], [address] MCV (RBC) [Entitic vol] 89.8 fL Normal 80-94 [facility] Comment on above: Performed By: #### L 100.0100, L501.5200, L500.4050, L503.6620 ####[facility] [address] [place], [address] Monocytes/100 WBC (Bld) 10.1 % High 0-10 [facility] Comment on above: Performed By: #### L 100.0100, L501.5200, L500.4050, L503.6620 ####[facility] [address] [place], [address] Neutrophils/100 WBC (Bld) 67.2 % Normal 47-70 [facility] Comment on above: Performed By: #### L 100.0100, L501.5200, L500.4050, L503.6620 ####[facility] [address] [place], [address] Nucleated RBC (Bld) [#/Vol] 0 10*3/uL Normal 0-5 [facility] Comment on above: Performed By: #### L 100.0100, L501.5200, L500.4050, L503.6620 ####[facility] [address] [place], [address] Platelet mean volume (Bld) [Entitic vol] 9.1 fL Normal 6.2-12.0 [facility] Comment on above: Performed By: #### L 100.0100, L501.5200, L500.4050, L503.6620 ####[facility] [address] [place], [address] Platelets (Bld) [#/Vol] 362 10*3/uL Normal 150-450 [facility] Comment on above: Performed By: #### L 100.0100, L501.5200, L500.4050, L503.6620 ####[facility] [address] [place], [address] RBC (Bld) [#/Vol] 3.64 10*6/uL Low 4.6-6.2 [facility] Comment on above: Performed By: #### L 100.0100, L501.5200, L500.4050, L503.6620 ####[facility] [address] [place], [address] RDW SD 49.0 fl High 35.1-43.9 [facility] Comment on above: Performed By: #### L 100.0100, L501.5200, L500.4050, L503.6620 ####[facility] [address] [place], [address] WBC (Bld) [#/Vol] 7.9 10*3/uL Normal 4.4-11.0 [facility] Comment on above: Performed By: #### L 100.0100, L501.5200, L500.4050, L503.6620 ####[facility] [address] [place], [address] Cardiology Visit Reporton Cardiology Visit Report [facility] [address] [place] [address] OFFICE VISIT Date of Service: 02/14/24 MR#: [id number] Acct: [id number] Name: TRE QUIÑONES Rep #: [id number] : 1955 Provider: JOHNNA lira Age/Sex: 69/M Location[place] [facility] Status: Signed [facility] History of Present Illness Details: TRE QUIÑONES, is a 69 M who presents to the office today for a follow-up visit as well as a revisit and second opinion.. He is a gentleman with history of atrial tachyarrhythmia status post ablation in 2005, 2017 and more recently in August 2018. He had initially presented with sinus bradycardia on the beta-damian had experienced some chest discomfort and underwent a cardiac catheterization with demonstrated essentially normal coronary arteries. 24-hour Holter monitor demonstrated periods of atrial fibrillation and flutter. He was sent to the [facility]. The more recent evaluation demonstrated areas of atrial flutter in the tricuspid annulus region. He also subsequently had a permanent pacemaker implanted after his radio frequency ablation in 2017. He had started experiencing more atrial arrhythmias once again and he was sent back to [facility]. It was felt after discussing all the options that the sotalol should be discontinued and he was started on amiodarone. He had been following up at the [facility] due to insurance issues. He had a stress test in 2020. He did have an echocardiogram performed on September 13 at the [facility] and he was recorded to have a moderately dilated left ventricle with estimated ejection fraction of 60 to 65% right ventricle with a pacemaker placed in mitral valve which was normal with severe mitral regurgitation. He had echocardiogram in October 2023 at [facility] that showed ejection fraction of 60% and moderately severe eccentric mitral valve insufficiency. Transesophageal echocardiogram on 11/21/2023 showed severe mitral valve insufficiency. Heart catheterization on 11/21/2023 showed angiographically normal coronary arteries. He was seen with [facility], Dr. Diamond in January 2024. Mitral valve annuloplasty with size 33 mm Suazo annuloplasty band and corknot, tricuspid valve annuloplasty with size 31 mm Teddy annular plasty band, biatrial maze and radiofrequency and cryoablation, and left atrial appendage closure with a size 35 mm Atriclip. Postoperatively his recovery was challenged by PEA arrest with resuscitation. Echocardiogram on 01/29/2024 showed LV function 55???5%, mildly dilated right ventricle, #33 [place] mitral valve annuloplasty ring with trace mitral valve regurgitation, peak mitral valve gradient 15 mmHg, mean mitral valve gradient is 6 mmHg at a heart rate of 101 bpm, #31 during tricuspid valve annuloplasty ring with trace tricuspid valve regurgitation, peak tricuspid valve gradient 9 mmHg, and mean tricuspid valve gradient of 4 mmHg. Device check prior to discharge showed atrial fibrillation. It was recommended continue amiodarone, metoprolol, and resume Xarelto upon discharge. He contact our office 2 days ago expressing concerns regarding bilateral lower extremity edema extending to his hips. He was asked to increase Lasix and present to office for evaluation. He denies chest, arm, jaw, or neck discomfort. He states palpitations. He acknowledges bilateral lower extremity edema with right worse than left. He denies claudication. He acknowledges shortness of breath with activity, shortness of breath at rest, and orthopnea. He acknowledges dizziness, headaches, fatigue, and weakness. He denies lightheadedness, near-syncope, or syncope. 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: No Accompanied by: Is patient in pain?: Yes (legs and hips) Allergies Environmental Allergies: Uncoded (hay fever) Allergy (Verified 02/14/24 09:13) wheezing, cough Medications ???Medication ???Instructions ???Recorded ???Confirmed ???Type albuterol sulfate 90 mcg/actuation 2 puff inhalation Q6H PRN PRN 07/21/17 02/14/24 History aerosol inhaler Wheezing/SOB lisinopril 20 mg tablet 20 mg PO DAILY 05/23/18 02/14/24 History amiodarone 200 mg tablet 200 mg PO DAILY #90 tabs 05/24/21 02/14/24 Rx tadalafil 5 mg tablet 5 mg PO DAILY 12/19/22 02/14/24 History rivaroxaban 20 mg tablet 20 mg PO QHS 03/20/23 02/14/24 History cholecalciferol (vitamin D3) 50 50 mcg PO DAILY 10/27/23 02/14/24 History mcg (2,000 unit) capsule metoprolol succinate 50 mg 50 mg PO DAILY 10/27/23 (more content not included)... Normal [facility] Chest PA and Lateralon 02-13 Chest PA and Lateral [facility] [address] [place] [address] Chest PA and Lateral MR#: [id number] Acct: [id number] Name: TRE QUIÑONES Rep #: [id number] : 1955 M 69 From: Harley Kitchen PCP: [facility] Status: REG CLI Study: Chest PA and Lateral Date of Exam: 02/14/24 Exam# [id number] Ordering Dr: Evelyn Deleon SENIOR ARCHITECT/DESIGN MANAGER SENIOR ARCHITECT/DESIGN MANAGER-C [id number] INDICATION: SOB -- recent valve repair surgery- [facility] EXAMINATION/TECHNIQUE : X-RAY - XR Chest 2 Views COMPARISON: Prior study dated: 12/19/2022 __ FINDINGS: LINES/DEVICES: Left-sided dual-chamber cardiac pacer device in stable position. LUNGS: No new infiltrate. No evidence of pleural effusions. MEDIASTINUM AND CARDIOVASCULAR STRUCTURES: Status post median sternotomy since the previous exam. Atrial appendage clip is seen. BONES AND SOFT TISSUES: Unremarkable. RAD/Chest PA and Lateral IMPRESSION: Status post median sternotomy. No new infiltrate is seen. Electronically Signed: Harley Jay MD at 15:55 EDT , CC: JOHNNA Deleon; [facility] Mechatronics Engineer: Signed Normal [facility] Comprehensive Metabolic Prof ilon 02-14-2024 Albumin [Mass/Vol] 3.4 g/dL Normal 3.2-5.0 [facility] Comment on above: Performed By: #### L 100.0100, L501.5200, L500.4050, L503.6620 ####[facility] [address] [place], [address] Albumin/Globulin [Mass ratio] 1.0 {ratio} Normal 0.9-2.4 [facility] Comment on above: Performed By: #### L 100.0100, L501.5200, L500.4050, L503.6620 ####[facility] [address] [place], [address] ALK P 86 U/L Normal 45-117 [facility] Comment on above: Performed By: #### L 100.0100, L501.5200, L500.4050, L503.6620 ####[facility] [address] [place], [address] ALT [Catalytic activity/Vol] 35 U/L Normal 16-61 [facility] Comment on above: Performed By: #### L 100.0100, L501.5200, L500.4050, L503.6620 ####[facility] [address] [place], [address] AST [Catalytic activity/Vol] 15 U/L Normal 15-37 [facility] Comment on above: Performed By: #### L 100.0100, L501.5200, L500.4050, L503.6620 ####[facility] [address] [place], [address] Bilirubin [Mass/Vol] 0.40 mg/dL Normal 0.20-1.00 [facility] Comment on above: Result Comment: For patients on eltrombopag therapy, use of Dimension [place] TBIL is not recommended. Performed By: #### L 100.0100, L501.5200, L500.4050, L503.6620 ####[facility] [address] [place], [address] BUN/CRE 27.0 RATIO High 10-20 [facility] Comment on above: Performed By: #### L 100.0100, L501.5200, L500.4050, L503.6620 ####[facility] [address] [place], [address] CA,Total 9.4 mg/dL Normal 8.5-10.1 [facility] Comment on above: Performed By: #### L 100.0100, L501.5200, L500.4050, L503.6620 ####[facility] [address] [place], [address] Chloride [Moles/Vol] 105 mmol/L Normal 98-107 [facility] Comment on above: Performed By: #### L 100.0100, L501.5200, L500.4050, L503.6620 ####[facility] [address] [place], [address] CO2 [Moles/Vol] 31.0 mmol/L Normal 21.0-32.0 [facility] Comment on above: Performed By: #### L 100.0100, L501.5200, L500.4050, L503.6620 ####[facility] [address] [place], [address] Creatinine [Mass/Vol] 1.11 mg/dL Normal 0.70-1.30 [facility] Comment on above: Result Comment: The validity of the calculated GFR GFRAA in patients over 70 years has not been determined. Clinical correlation is essential. Performed By: #### L 100.0100, L501.5200, L500.4050, L503.6620 ####[facility] [address] [place], [address] EST GFR - AA 85 mL/min Normal >60 [facility] Comment on above: Result Comment: Afri can [place] GFR Calc Performed By: #### L 100.0100, L501.5200, L500.4050, L503.6620 ####[facility] [address] [place], [address] GAP 2 Low 5-15 [facility] Comment on above: Performed By: #### L 100.0100, L501.5200, L500.4050, L503.6620 ####[facility] [address] [place], [address] GFR/1.73 sq M.predicted among non-blacks MDRD (S/P/Bld) [Vol rate/Area] 70 mL/min/{1.73_m2} Normal >60 [facility] Comment on above: Result Comment: Non- GFR Calc Performed By: #### L 100.0100, L501.5200, L500.4050, L503.6620 ####[facility] [address] [place], [address] Globulin (S) [Mass/Vol] 3.4 g/dL Normal 2.2-4.2 [facility] Comment on above: Performed By: #### L 100.0100, L501.5200, L500.4050, L503.6620 ####[facility] [address] [place], [address] Glucose [Mass/Vol] 89 mg/dL Normal 74-106 [facility] Comment on above: Performed By: #### L 100.0100, L501.5200, L500.4050, L503.6620 ####[facility] [address] [place], [address] Potassium [Moles/Vol] 4.1 mmol/L Normal 3.5-5.1 [facility] Comment on above: Performed By: #### L 100.0100, L501.5200, L500.4050, L503.6620 ####[facility] [address] [place] [place], [address] Sodium [Moles/Vol] 138 mmol/L Normal 136-145 [facility] Comment on above: Performed By: #### L 100.0100, L501.5200, L500.4050, L503.6620 ####[facility] [address] [place], [address] T PROT 6.8 g/dL Normal 6.4-8.2 [facility] Comment on above: Performed By: #### L 100.0100, L501.5200, L500.4050, L503.6620 ####[facility] [address] [place], [address] Urea nitrogen [Mass/Vol] 30 mg/dL High 7-18 [facility] Comment on above: Performed By: #### L 100.0100, L501.5200, L500.4050, L503.6620 ####[facility] [address] [place], [address] Magnesiumon 02-14-2024 Magnesium [Mass/Vol] 2.3 mg/dL Normal 1.6-2.6 [facility] Comment on above: Performed By: #### L 100.0100, L501.5200, L500.4050, L503.6620 ####[facility] [address] [place], [address] CBC panel Auto (Bld)on 02-05 Erythrocyte distribution width (RBC) [Ratio] 14.6 % Normal 11.5-15.0 [facility] Comment on above: Order Comment: Speci men Type: BLOOD SPECIMENOrdering Facility: [facility] Address: [address] [place] [address] Performed By: #### 5 8410-2 ####[facility] LABIA [id number] [place] [address] [place] Hematocrit (Bld) [Volume fraction] 28.8 % Low 39.0-51.0 [facility] Comment on above: Order Comment: Speci men Type: BLOOD SPECIMENOrdering Facility: [facility] Address: [address] [place] [address] Performed By: #### 5 8410-2 ####[facility] LABIA [id number] [place] [address] [place] Hemoglobin (Bld) [Mass/Vol] 9.0 g/dL Low 13.0-17.0 [facility] Comment on above: Order Comment: Speci men Type: BLOOD SPECIMENOrdering Facility: [facility] Address: [address] [place] [address] Performed By: #### 5 8410-2 ####[facility] LABIA [id number] [place] [address] [place] MCH (RBC) [Entitic mass] 28.0 pg Normal 26.0-34.0 [facility] Comment on above: Order Comment: Speci men Type: BLOOD SPECIMENOrdering Facility: [facility] Address: [address] [place] [address] Performed By: #### 5 8410-2 ####[facility] LABIA [id number] [place] [address] [place] MCHC (RBC) [Mass/Vol] 31.3 g/dL Normal 30.5-36.0 [facility] Comment on above: Order Comment: Speci men Type: BLOOD SPECIMENOrdering Facility: [facility] Address: [address] [place] [address] Performed By: #### 5 8410-2 ####[facility] LABIA [id number] [place] [address] [place] MCV (RBC) [Entitic vol] 89.7 fL Normal 80.0-100.0 [facility] Comment on above: Order Comment: Speci men Type: BLOOD SPECIMENOrdering Facility: [facility] Address: [address] [place] [address] Performed By: #### 5 8410-2 ####[facility] [id number] [place] [address] [place] Nucleated RBC (Bld) [#/Vol] 10*3/uL Normal <0.01 [facility] Comment on above: Order Comment: Speci men Type: BLOOD SPECIMENOrdering Facility: [facility] Address: [address] [place] [address] Performed By: #### 5 8410-2 ####[facility] [id number] [place] [address] [place] Platelet mean volume (Bld) [Entitic vol] 9.2 fL Normal 9.0-12.7 [facility] Comment on above: Order Comment: Speci men Type: BLOOD SPECIMENOrdering Facility: [facility] Address: [address] [place] [address] Performed By: #### 5 8410-2 ####[facility] LABIA [id number] [place] [address] [place] Platelets (Bld) [#/Vol] 403 10*3/uL High 150-400 [facility] Comment on above: Order Comment: Speci men Type: BLOOD SPECIMENOrdering Facility: [facility] Address: [address] [place] [address] Performed By: #### 5 8410-2 ####[facility] LABCLIA [id number] [address] [address] [place] RBC (Bld) [#/Vol] 3.21 10*6/uL Low 4.20-6.00 [facility] Comment on above: Order Comment: Speci men Type: BLOOD SPECIMENOrdering Facility: [facility] Address: [address] [place] [address] Performed By: #### 5 8410-2 ####[facility] LABIA [id number] [address] [address] [place] WBC (Bld) [#/Vol] 9.24 10*3/uL Normal 3.70-11.00 [facility] Comment on above: Order Comment: Speci men Type: BLOOD SPECIMENOrdering Facility: [facility] Address: [address] [place] [address] Performed By: #### 5 8410-2 ####[facility] LABIA [id number] [place] [address] [place] CNOVon 02-06-2024 CNOV Normal [facility] Comprehensive metabolic 2000 panelon 02-06-2024 Albumin [Mass/Vol] 3.8 g/dL Low 3.9-4.9 [facility] Comment on above: Order Comment: Speci men Type: BLOOD SPECIMENOrdering Facility: [facility] Address: [address] [place] [address] Performed By: #### 2 4323-8 ####[facility] LABIA [id number] [place] [address] [place] ALP [Catalytic activity/Vol] 89 U/L Normal 38-113 [facility] Comment on above: Order Comment: Speci men Type: BLOOD SPECIMENOrdering Facility: [facility] Address: [address] [place] [address] Performed By: #### 2 4323-8 ####[facility] LABCLIA [id number] [place] [id number] [place] ALT [Catalytic activity/Vol] 40 U/L Normal 10-54 [facility] Comment on above: Order Comment: Speci men Type: BLOOD SPECIMENOrdering Facility: [facility] Address: [address] [place] [address] Performed By: #### 2 4323-8 ####[facility] LABCLIA [id number] [place] [address] [place] Anion gap [Moles/Vol] 11 mmol/L Normal 8-15 [facility] Comment on above: Order Comment: Speci men Type: BLOOD SPECIMENOrdering Facility: [facility] Address: [address] [place] [address] Performed By: #### 2 4323-8 ####[facility] LABCLIA [id number] [place] [address] [place] AST [Catalytic activity/Vol] 23 U/L Normal 14-40 [facility] Comment on above: Order Comment: Speci men Type: BLOOD SPECIMENOrdering Facility: [facility] Address: [address] [place], [place] [address] Performed By: #### 2 4323-8 ####[facility] LABCLIA [id number] [place] [address] [place] Bilirubin [Mass/Vol] 0.3 mg/dL Normal 0.2-1.3 [facility] Comment on above: Order Comment: Speci men Type: BLOOD SPECIMENOrdering Facility: [facility] Address: [address] [place], [place] [address] Performed By: #### 2 4323-8 ####[facility] LABCLIA [id number] [place] [id number] [place] Calcium [Mass/Vol] 9.3 mg/dL Normal 8.5-10.2 [facility] Comment on above: Order Comment: Speci men Type: BLOOD SPECIMENOrdering Facility: [facility] Address: [address] [place] [address] Performed By: #### 2 4323-8 ####[facility] LABCLIA [id number] [place] [address] [place] Chloride [Moles/Vol] 105 mmol/L Normal 98-107 [facility] Comment on above: Order Comment: Speci men Type: BLOOD SPECIMENOrdering Facility: [facility] Address: [address] [place] [address] Performed By: #### 2 4323-8 ####[facility] LABCLIA [id number] [place] [address] [place] CO2 [Moles/Vol] 24 mmol/L Normal 22-30 [facility] Comment on above: Order Comment: Speci men Type: BLOOD SPECIMENOrdering Facility: [facility] Address: [address] [place] [address] Performed By: #### 2 4323-8 ####[facility] LABCLIA [id number] [place] [address] [place] Creatinine [Mass/Vol] 1.19 mg/dL Normal 0.73-1.22 [facility] Comment on above: Order Comment: Speci men Type: BLOOD SPECIMENOrdering Facility: [facility] Address: [address] [place] [address] Performed By: #### 2 4323-8 ####[facility] LABCLIA [id number] [place] [address] [place] Creatinine and Glomerular filtration rate.predicted panel (S/P/Bld) 67 mL/min/1.73m??? Normal >=60 [facility] Comment on above: Order Comment: Speci men Type: BLOOD SPECIMENOrdering Facility: [facility] Address: [address] [place] [address] Result Comment: Talisha mated Glomerular Filtration Rate [...] actual GFR. Performed By: #### 2 4323-8 ####[facility] LABCLIA [id number] [place] [address] [place] Glucose [Mass/Vol] 97 mg/dL Normal 74-99 [facility] Comment on above: Order Comment: Jeison parry Type: BLOOD SPECIMENOrdering Facility: [facility] Address: [address] [place] [address] Result Comment: The [place] Diabetes Association (ADA) provides guidance for cutoff [...] Standards of Medical Care in Diabetes 2016, [place] Diabetes Association. Diabetes Care. 2016.39(Suppl 1). Performed By: #### 2 4323-8 ####[facility] LABIA [id number] [place] [address] [place] Potassium [Moles/Vol] 4.7 mmol/L Normal 3.7-5.1 [facility] Comment on above: Order Comment: Jeison parry Type: BLOOD SPECIMENOrdering Facility: [facility] Address: [address] [place] [id number] Performed By: #### 2 4323-8 ####[facility] LABCLIA [id number] [place] [id number] [place] Protein [Mass/Vol] 6.1 g/dL Low 6.3-8.0 [facility] Comment on above: Order Comment: Speci men Type: BLOOD SPECIMENOrdering Facility: [facility] Address: [address] [place] [address] Performed By: #### 2 4323-8 ####[facility] LABCLIA [id number] [place] [address] [place] Sodium [Moles/Vol] 140 mmol/L Normal 136-144 [facility] Comment on above: Order Comment: Speci men Type: BLOOD SPECIMENOrdering Facility: [facility] Address: [address] [place] [address] Performed By: #### 2 4323-8 ####[facility] LABCLIA [id number] [place] [address] [place] Urea nitrogen [Mass/Vol] 36 mg/dL High 9-24 [facility] Comment on above: Order Comment: Speci men Type: BLOOD SPECIMENOrdering Facility: [facility] Address: [address] [place] [address] Performed By: #### 2 4323-8 ####[facility] LABCLIA [id number] [place] [address] [place] ECG COMPLETEon 02-06-2024 ECG COMPLETE Normal [facility] XR CHEST 2V FRONTAL/LATon XR CHEST 2V FRONTAL/LAT Normal [facility] XR Chest PA and Lateralon IMPRESSION: See result. 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 DIVISION OF RADIOLOGY Provider, Noah Hodge - 02/06/2024 * * *Final Report* * [...] the thoracic spine. IMPRESSION IMPRESSION: See result. 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 Transcribe Date/Time: Feb 06 2024 2:34P Dictated by : CAROLYN ROBERTSON MD This examination was interpreted and the report reviewed and electronically signed by: CAROLYN ROBERTSON MD on Feb 06 2024 2:48PM EST [facility] Radiology Study observation (narrative) Jarad Mendoza XR Chest PA and LateralOrder ed By: Ccf Provider on 02-06-2024 [facility] CNPNon 01-31-2024 CNPN Normal [facility] ALLIED HEALTHon 01-29-2024 ALLIED HEALTH Normal [facility] CASE MANAGEMon 01-29-2024 CASE MANAGEM Normal [facility] CBC panel Auto (Bld)on 01-28 Erythrocyte distribution width (RBC) [Ratio] 13.6 % Normal 11.5-15.0 [facility] Comment on above: Order Comment: Speci men Type: BLOOD SPECIMENOrdering Facility: [facility] Address: [address] [place] [address] Performed By: #### 5 8410-2 ####[facility] LABIA [id number] [place] [address] [place] Hematocrit (Bld) [Volume fraction] 31.2 % Low 39.0-51.0 [facility] Comment on above: Order Comment: Speci men Type: BLOOD SPECIMENOrdering Facility: [facility] Address: [address] [place] [address] Performed By: #### 5 8410-2 ####[facility] LABIA [id number] [place] [address] [place] Hemoglobin (Bld) [Mass/Vol] 9.9 g/dL Low 13.0-17.0 [facility] Comment on above: Order Comment: Speci men Type: BLOOD SPECIMENOrdering Facility: [facility] Address: [address] [place] [address] Performed By: #### 5 8410-2 ####[facility] LABCLIA [id number] [place] [address] [place] MCH (RBC) [Entitic mass] 27.7 pg Normal 26.0-34.0 [facility] Comment on above: Order Comment: Speci men Type: BLOOD SPECIMENOrdering Facility: [facility] Address: [address] [place] [address] Performed By: #### 5 8410-2 ####[facility] LABCLIA [id number] [place] [address] [place] MCHC (RBC) [Mass/Vol] 31.7 g/dL Normal 30.5-36.0 [facility] Comment on above: Order Comment: Speci men Type: BLOOD SPECIMENOrdering Facility: [facility] Address: [address] [place] [address] Performed By: #### 5 8410-2 ####[facility] LABCLIA [id number] [place] [address] [place] MCV (RBC) [Entitic vol] 87.2 fL Normal 80.0-100.0 [facility] Comment on above: Order Comment: Speci men Type: BLOOD SPECIMENOrdering Facility: [facility] Address: [address] [place] [address] Performed By: #### 5 8410-2 ####[facility] LABCLIA [id number] [place] [address] [place] Nucleated RBC (Bld) [#/Vol] 10*3/uL Normal <0.01 [facility] Comment on above: Order Comment: Speci men Type: BLOOD SPECIMENOrdering Facility: [facility] Address: [address] [place] [address] Performed By: #### 5 8410-2 ####[facility] LABIA [id number] [place] [address] [place] Platelet mean volume (Bld) [Entitic vol] 10.0 fL Normal 9.0-12.7 [facility] Comment on above: Order Comment: Speci men Type: BLOOD SPECIMENOrdering Facility: [facility] Address: [address] [place] [address] Performed By: #### 5 8410-2 ####[facility] LABCLIA [id number] [place] [address] [place] Platelets (Bld) [#/Vol] 191 10*3/uL Normal 150-400 [facility] Comment on above: Order Comment: Speci men Type: BLOOD SPECIMENOrdering Facility: [facility] Address: [address] [place] [address] Performed By: #### 5 8410-2 ####[facility] LABCLIA [id number] [address] [address] [place] RBC (Bld) [#/Vol] 3.58 10*6/uL Low 4.20-6.00 [facility] Comment on above: Order Comment: Speci men Type: BLOOD SPECIMENOrdering Facility: [facility] Address: [address] [place] [address] Performed By: #### 5 8410-2 ####[facility] LABCLIA [id number] [place] [address] [place] WBC (Bld) [#/Vol] 7.60 10*3/uL Normal 3.70-11.00 [facility] Comment on above: Order Comment: Speci men Type: BLOOD SPECIMENOrdering Facility: [facility] Address: [address] [place] [address] Performed By: #### 5 8410-2 ####[facility] LABCLIA [id number] [place] [id number] [place] CNDSon 01-29-2024 CNDS Normal [facility] Comprehensive metabolic 2000 panelon 01-29-2024 Albumin [Mass/Vol] 3.6 g/dL Low 3.9-4.9 [facility] Comment on above: Order Comment: Speci men Type: BLOOD SPECIMENOrdering Facility: [facility] Address: [address] [place] [address] Performed By: #### 2 4323-8 ####[facility] LABCLIA [id number] [place] [id number] [place] ALP [Catalytic activity/Vol] 78 U/L Normal 38-113 [facility] Comment on above: Order Comment: Speci men Type: BLOOD SPECIMENOrdering Facility: [facility] Address: [address] [place] [id number] Performed By: #### 2 4323-8 ####[facility] LABCLIA [id number] [place] [address] [place] ALT [Catalytic activity/Vol] 27 U/L Normal 10-54 [facility] Comment on above: Order Comment: Speci men Type: BLOOD SPECIMENOrdering Facility: [facility] Address: [address] [place] [address] Performed By: #### 2 4323-8 ####[facility] LABCLIA [id number] [place] [address] [place] Anion gap [Moles/Vol] 10 mmol/L Normal 8-15 [facility] Comment on above: Order Comment: Speci men Type: BLOOD SPECIMENOrdering Facility: [facility] Address: [address] [place] [address] Performed By: #### 2 4323-8 ####[facility] LABCLIA [id number] [place] [address] [place] AST [Catalytic activity/Vol] 27 U/L Normal 14-40 [facility] Comment on above: Order Comment: Speci men Type: BLOOD SPECIMENOrdering Facility: [facility] Address: [address] [place], [place] [address] Performed By: #### 2 4323-8 ####[facility] LABCLIA [id number] [place] [id number] [place] Bilirubin [Mass/Vol] 0.7 mg/dL Normal 0.2-1.3 [facility] Comment on above: Order Comment: Speci men Type: BLOOD SPECIMENOrdering Facility: [facility] Address: [address] [place], [place] [address] Performed By: #### 2 4323-8 ####[facility] LABCLIA [id number] [place] [id number] [place] Calcium [Mass/Vol] 9.1 mg/dL Normal 8.5-10.2 [facility] Comment on above: Order Comment: Speci men Type: BLOOD SPECIMENOrdering Facility: [facility] Address: [address] [place] [address] Performed By: #### 2 4323-8 ####[facility] LABCLIA [id number] [place] [address] [place] Chloride [Moles/Vol] 94 mmol/L Low 98-107 [facility] Comment on above: Order Comment: Speci men Type: BLOOD SPECIMENOrdering Facility: [facility] Address: [address] [place] [address] Performed By: #### 2 4323-8 ####[facility] LABCLIA [id number] [place] [address] [place] CO2 [Moles/Vol] 32 mmol/L High 22-30 [facility] Comment on above: Order Comment: Speci men Type: BLOOD SPECIMENOrdering Facility: [facility] Address: [address] [place] [address] Performed By: #### 2 4323-8 ####[facility] LABCLIA [id number] [place] [address] [place] Creatinine [Mass/Vol] 0.95 mg/dL Normal 0.73-1.22 [facility] Comment on above: Order Comment: Speci men Type: BLOOD SPECIMENOrdering Facility: [facility] Address: [address] [place] [address] Performed By: #### 2 4323-8 ####[facility] LABCLIA [id number] [place] [address] [place] Creatinine and Glomerular filtration rate.predicted panel (S/P/Bld) 88 mL/min/1.73m??? Normal >=60 [facility] Comment on above: Order Comment: Speci men Type: BLOOD SPECIMENOrdering Facility: [facility] Address: [address] [place] [address] Result Comment: Talisha mated Glomerular Filtration Rate [...] actual GFR. Performed By: #### 2 4323-8 ####[facility] LABIA [id number] [place] [address] [place] Glucose [Mass/Vol] 98 mg/dL Normal 74-99 [facility] Comment on above: Order Comment: Jeison parry Type: BLOOD SPECIMENOrdering Facility: [facility] Address: [address] [place] [address] Result Comment: The [place] [employer] (ADA) provides guidance for cutoff [...] Standards of Medical Care in Diabetes 2016, [place] [employer]. Diabetes Care. 2016.39(Suppl 1). Performed By: #### 2 4323-8 ####[facility] [id number] [place] [address] [place] Potassium [Moles/Vol] 3.4 mmol/L Low 3.7-5.1 [facility] Comment on above: Order Comment: Jeison [facility] Type: BLOOD SPECIMENOrdering Facility: [facility] Address: [address] [place] [address] Performed By: #### 2 4323-8 ####[facility] LABCLIA [id number] [place] [address] [place] Protein [Mass/Vol] 6.4 g/dL Normal 6.3-8.0 [facility] Comment on above: Order Comment: Speci men Type: BLOOD SPECIMENOrdering Facility: [facility] Address: [address] [place] [address] Performed By: #### 2 4323-8 ####[facility] LABCLIA [id number] [place] [address] [place] Sodium [Moles/Vol] 136 mmol/L Normal 136-144 [facility] Comment on above: Order Comment: Speci men Type: BLOOD SPECIMENOrdering Facility: [facility] Address: [address] [place] [address] Performed By: #### 2 4323-8 ####[facility] LABCLIA [id number] [place] [address] [place] Urea nitrogen [Mass/Vol] 28 mg/dL High 9-24 [facility] Comment on above: Order Comment: Speci men Type: BLOOD SPECIMENOrdering Facility: [facility] Address: [address] [place] [address] Performed By: #### 2 4323-8 ####[facility] LABCLIA [id number] [place] [address] [place] THERAPY NTon 01-29-2024 THERAPY NT Normal [facility] THERAPY NT Normal [facility] CBC panel Auto (Bld)on 01-27 Erythrocyte distribution width (RBC) [Ratio] 13.9 % Normal 11.5-15.0 [facility] Comment on above: Order Comment: Speci men Type: BLOOD SPECIMENOrdering Facility: [facility] Address: [address] [place] [address] Performed By: #### 5 8410-2 ####[facility] LABCLIA [id number] [place] [address] [place] Hematocrit (Bld) [Volume fraction] 31.1 % Low 39.0-51.0 [facility] Comment on above: Order Comment: Speci men Type: BLOOD SPECIMENOrdering Facility: [facility] Address: [address] [place] [address] Performed By: #### 5 8410-2 ####[facility] LABIA [id number] [place] [address] [place] Hemoglobin (Bld) [Mass/Vol] 9.9 g/dL Low 13.0-17.0 [facility] Comment on above: Order Comment: Speci men Type: BLOOD SPECIMENOrdering Facility: [facility] Address: [address] [place] [address] Performed By: #### 5 8410-2 ####[facility] LABCLIA [id number] [place] [address] [place] MCH (RBC) [Entitic mass] 27.7 pg Normal 26.0-34.0 [facility] Comment on above: Order Comment: Speci men Type: BLOOD SPECIMENOrdering Facility: [facility] Address: [address] [place] [address] Performed By: #### 5 8410-2 ####[facility] LABIA [id number] [place] [address] [place] MCHC (RBC) [Mass/Vol] 31.8 g/dL Normal 30.5-36.0 [facility] Comment on above: Order Comment: Speci men Type: BLOOD SPECIMENOrdering Facility: [facility] Address: [address] [place] [address] Performed By: #### 5 8410-2 ####[facility] LABCLIA [id number] [place] [address] [place] MCV (RBC) [Entitic vol] 87.1 fL Normal 80.0-100.0 [facility] Comment on above: Order Comment: Speci men Type: BLOOD SPECIMENOrdering Facility: [facility] Address: [address] [place] [address] Performed By: #### 5 8410-2 ####[facility] LABIA [id number] [place] [address] [place] Nucleated RBC (Bld) [#/Vol] 10*3/uL Normal <0.01 [facility] Comment on above: Order Comment: Speci men Type: BLOOD SPECIMENOrdering Facility: [facility] Address: [address] [place] [address] Performed By: #### 5 8410-2 ####[facility] LABIA [id number] [place] [address] [place] Platelet mean volume (Bld) [Entitic vol] 10.3 fL Normal 9.0-12.7 [facility] Comment on above: Order Comment: Speci men Type: BLOOD SPECIMENOrdering Facility: [facility] Address: [address] [place] [address] Performed By: #### 5 8410-2 ####[facility] LABIA [id number] [place] [address] [place] Platelets (Bld) [#/Vol] 166 10*3/uL Normal 150-400 [facility] Comment on above: Order Comment: Speci men Type: BLOOD SPECIMENOrdering Facility: [facility] Address: [address] [place] [address] Performed By: #### 5 8410-2 ####[facility] LABIA [id number] [place] [address] [place] RBC (Bld) [#/Vol] 3.57 10*6/uL Low 4.20-6.00 [facility] Comment on above: Order Comment: Speci men Type: BLOOD SPECIMENOrdering Facility: [facility] Address: [address] [place] [address] Performed By: #### 5 8410-2 ####[facility] LABCLIA [id number] [place] [address] [place] WBC (Bld) [#/Vol] 8.32 10*3/uL Normal 3.70-11.00 [facility] Comment on above: Order Comment: Speci men Type: BLOOD SPECIMENOrdering Facility: [facility] Address: [address] [place] [address] Performed By: #### 5 8410-2 ####[facility] LABCLIA [id number] [place] [address] [place] [facility] Comprehensive metabolic 2000 panelon 01-28-2024 Albumin [Mass/Vol] 3.8 g/dL Low 3.9-4.9 [facility] Comment on above: Order Comment: Speci men Type: BLOOD SPECIMENOrdering Facility: [facility] Address: [address] [place] [address] Performed By: #### 2 4323-8 ####[facility] LABCLIA [id number] [place] [address] [place] ALP [Catalytic activity/Vol] 83 U/L Normal 38-113 [facility] Comment on above: Order Comment: Speci men Type: BLOOD SPECIMENOrdering Facility: [facility] Address: [address] [place] [address] Performed By: #### 2 4323-8 ####[facility] LABCLIA [id number] [place] [address] [place] ALT [Catalytic activity/Vol] 22 U/L Normal 10-54 [facility] Comment on above: Order Comment: Speci men Type: BLOOD SPECIMENOrdering Facility: [facility] Address: [address] [place] [address] Performed By: #### 2 4323-8 ####[facility] LABCLIA [id number] [place] [address] [place] Anion gap [Moles/Vol] 12 mmol/L Normal 8-15 [facility] Comment on above: Order Comment: Speci men Type: BLOOD SPECIMENOrdering Facility: [facility] Address: [address] [place] [address] Performed By: #### 2 4323-8 ####[facility] LABCLIA [id number] [place] [address] [place] AST [Catalytic activity/Vol] 34 U/L Normal 14-40 [facility] Comment on above: Order Comment: Speci men Type: BLOOD SPECIMENOrdering Facility: [facility] Address: [address] [place] [address] Performed By: #### 2 4323-8 ####[facility] LABCLIA [id number] [place] [address] [place] Bilirubin [Mass/Vol] 0.6 mg/dL Normal 0.2-1.3 [facility] Comment on above: Order Comment: Speci men Type: BLOOD SPECIMENOrdering Facility: [facility] Address: [address] [place] [address] Performed By: #### 2 4323-8 ####[facility] LABCLIA [id number] [place] [address] [place] Calcium [Mass/Vol] 9.1 mg/dL Normal 8.5-10.2 [facility] Comment on above: Order Comment: Speci men Type: BLOOD SPECIMENOrdering Facility: [facility] Address: [address] [place] [address] Performed By: #### 2 4323-8 ####[facility] LABCLIA [id number] [place] [address] [place] Chloride [Moles/Vol] 95 mmol/L Low 98-107 [facility] Comment on above: Order Comment: Speci men Type: BLOOD SPECIMENOrdering Facility: [facility] Address: [address] [place] [address] Performed By: #### 2 4323-8 ####[facility] LABCLIA [id number] [place] [address] [place] CO2 [Moles/Vol] 29 mmol/L Normal 22-30 [facility] Comment on above: Order Comment: Speci men Type: BLOOD SPECIMENOrdering Facility: [facility] Address: [address] [place] [address] Performed By: #### 2 4323-8 ####[facility] LABCLIA [id number] [place] [address] [place] Creatinine [Mass/Vol] 0.96 mg/dL Normal 0.73-1.22 [facility] Comment on above: Order Comment: Speci men Type: BLOOD SPECIMENOrdering Facility: [facility] Address: [address] [place] [address] Performed By: #### 2 4323-8 ####[facility] LABIA [id number] [place] [address] [place] Creatinine and Glomerular filtration rate.predicted panel (S/P/Bld) 87 mL/min/1.73m??? Normal >=60 [facility] Comment on above: Order Comment: Speci men Type: BLOOD SPECIMENOrdering Facility: [facility] Address: [address] [place] [address] Result Comment: Talisha mated Glomerular Filtration Rate [...] actual GFR. Performed By: #### 2 4323-8 ####[facility] LABCLIA [id number] [place] [id number] [place] Glucose [Mass/Vol] 91 mg/dL Normal 74-99 [facility] Comment on above: Order Comment: Jeison parry Type: BLOOD SPECIMENOrdering Facility: [facility] Address: [address] [place] [address] Result Comment: The [place] Diabetes Association (ADA) provides guidance for cutoff [...] Standards of Medical Care in Diabetes 2016, [place] [employer]. Diabetes Care. 2016.39(Suppl 1). Performed By: #### 2 4323-8 ####[facility] LABCLIA [id number] [place] [address] [place] Potassium [Moles/Vol] 3.8 mmol/L Normal 3.7-5.1 [facility] Comment on above: Order Comment: Jeison parry Type: BLOOD SPECIMENOrdering Facility: [facility] Address: [address] [place] [address] Performed By: #### 2 4323-8 ####[facility] LABCLIA [id number] [place] [address] [place] Protein [Mass/Vol] 6.5 g/dL Normal 6.3-8.0 [facility] Comment on above: Order Comment: Jeison parry Type: BLOOD SPECIMENOrdering Facility: [facility] Address: [address] [place], [place] [address] Performed By: #### 2 4323-8 ####[facility] LABCLIA [id number] [place] [address] [place] Sodium [Moles/Vol] 136 mmol/L Normal 136-144 [facility] Comment on above: Order Comment: Speci men Type: BLOOD SPECIMENOrdering Facility: [facility] Address: [address] [place] [address] Performed By: #### 2 4323-8 ####[facility] LABCLIA [id number] [place] [address] [place] Urea nitrogen [Mass/Vol] 32 mg/dL High 9-24 [facility] Comment on above: Order Comment: Speci men Type: BLOOD SPECIMENOrdering Facility: [facility] Address: [address] [place] [address] Performed By: #### 2 4323-8 ####[facility] LABCLIA [id number] [place] [address] [place] ECG COMPLETEon 01-28-2024 ECG COMPLETE Normal [facility] NURSING PROGon 01-28-2024 NURSING PROG Normal [facility] NURSING PROG Normal [facility] NURSING PROG Normal [facility] NURSING PROG Normal [facility] NURSING PROG Normal [facility] XR CHEST 2V FRONTAL/LATon XR CHEST 2V FRONTAL/LAT Normal [facility] ARTERIAL BLOOD GASESon 01-26 Base excess Calc (Bld) [Moles/Vol] 7 mmol/L High 0-2 [facility] Comment on above: Order Comment: Speci men Type: ARTERIAL BLOOD SPECIMENOrdering Facility: [facility] Address: [address] [place] [address] Performed By: #### A LLBG ####[facility] LABCLIA [id number] [place] [address] [place] Body temperature 98.6 [degF] Normal [facility] Comment on above: Order Comment: Speci men Type: ARTERIAL BLOOD SPECIMENOrdering Facility: [facility] Address: [address] [place] [address] Performed By: #### A LLBG ####[facility] LABCLIA [id number] [place] [address] [place] Calcium.ionized (Bld) [Mass/Vol] 1.14 mmol/L Normal 1.08-1.30 [facility] Comment on above: Order Comment: Speci men Type: ARTERIAL BLOOD SPECIMENOrdering Facility: [facility] Address: [address] [place] [address] Performed By: #### A LLBG ####[facility] LABCLIA [id number] [place] [address] [place] Calcium.ionized adjusted to pH 7.4 (BldA) [Moles/Vol] 1.18 mmol/L Normal 1.08-1.30 [facility] Comment on above: Order Comment: Speci men Type: ARTERIAL BLOOD SPECIMENOrdering Facility: [facility] Address: [address] [place] [address] Performed By: #### A LLBG ####[facility] LABCLIA [id number] [place] [address] [place] Carboxyhemoglobin (BldA) [Mass fraction] 2.2 % High 0.0-2.0 [facility] Comment on above: Order Comment: Speci men Type: ARTERIAL BLOOD SPECIMENOrdering Facility: [facility] Address: [address] [place] [address] Result Comment: Carb oxyhemoglobin Reference Range for Smokers: 2.0-8.0% Performed By: #### A LLBG ####[facility] LABCLIA [id number] [place] [address] [place] CO2 (Bld) [Partial pressure] 44 mm Hg Normal 36-46 [facility] Comment on above: Order Comment: Speci men Type: ARTERIAL BLOOD SPECIMENOrdering Facility: [facility] Address: [address] [place] [address] Performed By: #### A LLBG ####[facility] LABCLIA [id number] [place] [address] [place] Glucose [Mass/Vol] 103 mg/dL Normal 60-105 [facility] Comment on above: Order Comment: Speci men Type: ARTERIAL BLOOD SPECIMENOrdering Facility: [facility] Address: [address] [place] [address] Performed By: #### A LLBG ####[facility] LABCLIA [id number] [place] [address] [place] HCO3 (Bld) [Moles/Vol] 31 mmol/L High 22-26 [facility] Comment on above: Order Comment: Speci men Type: ARTERIAL BLOOD SPECIMENOrdering Facility: [facility] Address: [address] [place] [address] Performed By: #### A LLBG ####[facility] LABCLIA [id number] [place] [address] [place] Hematocrit (Bld) [Volume fraction] 30.4 % Low 39.0-51.0 [facility] Comment on above: Order Comment: Speci men Type: ARTERIAL BLOOD SPECIMENOrdering Facility: [facility] Address: [address] [place] [address] Performed By: #### A LLBG ####[facility] LABCLIA [id number] [place] [address] [place] Hemoglobin (Bld) [Mass/Vol] 9.8 g/dL Low 13.0-17.0 [facility] Comment on above: Order Comment: Speci men Type: ARTERIAL BLOOD SPECIMENOrdering Facility: [facility] Address: [address] [place] [address] Performed By: #### A LLBG ####[facility] LABCLIA [id number] [place] [address] [place] Lactate [Moles/Vol] 0.6 mmol/L Normal 0.5-2.2 [facility] Comment on above: Order Comment: Speci men Type: ARTERIAL BLOOD SPECIMENOrdering Facility: [facility] Address: [address] [place], [place] [address] Performed By: #### A LLBG ####[facility] LABCLIA [id number] [place] [id number] [place] LITERS 2 Liters/min Normal [facility] Comment on above: Order Comment: Speci men Type: ARTERIAL BLOOD SPECIMENOrdering Facility: [facility] Address: [address] [place], [place] [address] Performed By: #### A LLBG ####[facility] LABCLIA [id number] [place] [id number] [place] Methemoglobin (Bld) [Mass fraction] 0.5 % Normal 0.0-1.5 [facility] Comment on above: Order Comment: Speci men Type: ARTERIAL BLOOD SPECIMENOrdering Facility: [facility] Address: [address] [place] [address] Performed By: #### A LLBG ####[facility] LABCLIA [id number] [place] [address] [place] O2 THERAPY NC = Nasal Cannula Normal [facility] Comment on above: Order Comment: Speci men Type: ARTERIAL BLOOD SPECIMENOrdering Facility: [facility] Address: [address] [place], [place] [address] Performed By: #### A LLBG ####[facility] LABCLIA [id number] [place] [id number] [place] Oxygen (Bld) [Partial pressure] 185 mm Hg High 85-95 [facility] Comment on above: Order Comment: Speci men Type: ARTERIAL BLOOD SPECIMENOrdering Facility: [facility] Address: [address] [place], [place] [address] Performed By: #### A LLBG ####[facility] LABCLIA [id number] [address] [address] [place] Oxyhemoglobin (BldA) [Mass fraction] 97 % Normal 95-98 [facility] Comment on above: Order Comment: Speci men Type: ARTERIAL BLOOD SPECIMENOrdering Facility: [facility] Address: [address] [place] [address] Performed By: #### A LLBG ####[facility] LABCLIA [id number] [place] [address] [place] pH (Bld) 7.46 [pH] High 7.35-7.45 [facility] Comment on above: Order Comment: Speci men Type: ARTERIAL BLOOD SPECIMENOrdering Facility: [facility] Address: [address] [place] [address] Performed By: #### A LLBG ####[facility] LABCLIA [id number] [place] [address] [place] Potassium [Moles/Vol] 3.9 mmol/L Normal 3.5-5.0 [facility] Comment on above: Order Comment: Speci men Type: ARTERIAL BLOOD SPECIMENOrdering Facility: [facility] Address: [address] [place] [address] Performed By: #### A LLBG ####[facility] LABCLIA [id number] [place] [address] [place] Sodium [Moles/Vol] 134 mmol/L Low 136-144 [facility] Comment on above: Order Comment: Speci men Type: ARTERIAL BLOOD SPECIMENOrdering Facility: [facility] Address: [address] [place] [address] Performed By: #### A LLBG ####[facility] LABCLIA [id number] [place] [address] [place] Base excess Calc (Bld) [Moles/Vol] 6 mmol/L High 0-2 [facility] Comment on above: Order Comment: Speci men Type: ARTERIAL BLOOD SPECIMENOrdering Facility: [facility] Address: [address] [place] [address] Performed By: #### A LLBG ####[facility] LABCLIA [id number] [place] [address] [place] Body temperature 98.6 [degF] Normal [facility] Comment on above: Order Comment: Speci men Type: ARTERIAL BLOOD SPECIMENOrdering Facility: [facility] Address: [address] [place] [address] Performed By: #### A LLBG ####[facility] LABCLIA [id number] [place] [address] [place] Calcium.ionized (Bld) [Mass/Vol] 1.17 mmol/L Normal 1.08-1.30 [facility] Comment on above: Order Comment: Speci men Type: ARTERIAL BLOOD SPECIMENOrdering Facility: [facility] Address: [address] [place] [address] Performed By: #### A LLBG ####[facility] LABCLIA [id number] [place] [address] [place] Calcium.ionized adjusted to pH 7.4 (BldA) [Moles/Vol] 1.16 mmol/L Normal 1.08-1.30 [facility] Comment on above: Order Comment: Speci men Type: ARTERIAL BLOOD SPECIMENOrdering Facility: [facility] Address: [address] [place] [address] Performed By: #### A LLBG ####[facility] LABCLIA [id number] [place] [address] [place] Carboxyhemoglobin (BldA) [Mass fraction] 2.2 % High 0.0-2.0 [facility] Comment on above: Order Comment: Speci men Type: ARTERIAL BLOOD SPECIMENOrdering Facility: [facility] Address: [address] [place] [address] Result Comment: Carb oxyhemoglobin Reference Range for Smokers: 2.0-8.0% Performed By: #### A LLBG ####[facility] LABCLIA [id number] [address] [place] [address] [place] CO2 (Bld) [Partial pressure] 54 mm Hg High 36-46 [facility] Comment on above: Order Comment: Speci men Type: ARTERIAL BLOOD SPECIMENOrdering Facility: [facility] Address: [address] [place] [address] Performed By: #### A LLBG ####[facility] LABCLIA [id number] [place] [address] [place] Glucose [Mass/Vol] 102 mg/dL Normal 60-105 [facility] Comment on above: Order Comment: Speci men Type: ARTERIAL BLOOD SPECIMENOrdering Facility: [facility] Address: [address] [place] [address] Performed By: #### A LLBG ####[facility] LABCLIA [id number] [place] [address] [place] HCO3 (Bld) [Moles/Vol] 31 mmol/L High 22-26 [facility] Comment on above: Order Comment: Speci men Type: ARTERIAL BLOOD SPECIMENOrdering Facility: [facility] Address: [address] [place] [address] Performed By: #### A LLBG ####[facility] LABCLIA [id number] [place] [address] [place] Hematocrit (Bld) [Volume fraction] 29.8 % Low 39.0-51.0 [facility] Comment on above: Order Comment: Speci men Type: ARTERIAL BLOOD SPECIMENOrdering Facility: [facility] Address: [address] [place] [address] Performed By: #### A LLBG ####[facility] LABCLIA [id number] [place] [address] [place] Hemoglobin (Bld) [Mass/Vol] 9.6 g/dL Low 13.0-17.0 [facility] Comment on above: Order Comment: Speci men Type: ARTERIAL BLOOD SPECIMENOrdering Facility: [facility] Address: [address] [place] [address] Performed By: #### A LLBG ####[facility] LABCLIA [id number] [place] [address] [place] Lactate [Moles/Vol] 0.6 mmol/L Normal 0.5-2.2 [facility] Comment on above: Order Comment: Speci men Type: ARTERIAL BLOOD SPECIMENOrdering Facility: [facility] Address: [address] [place] [address] Performed By: #### A LLBG ####[facility] LABCLIA [id number] [place] [address] [place] LITERS 4 Liters/min Normal [facility] Comment on above: Order Comment: Speci men Type: ARTERIAL BLOOD SPECIMENOrdering Facility: [facility] Address: [address] [place] [address] Performed By: #### A LLBG ####[facility] LABCLIA [id number] [place] [address] [place] Methemoglobin (Bld) [Mass fraction] 0.9 % Normal 0.0-1.5 [facility] Comment on above: Order Comment: Speci men Type: ARTERIAL BLOOD SPECIMENOrdering Facility: [facility] Address: [address] [place] [address] Performed By: #### A LLBG ####[facility] LABCLIA [id number] [place] [address] [place] O2 THERAPY Positive Normal [facility] Comment on above: Order Comment: Speci men Type: ARTERIAL BLOOD SPECIMENOrdering Facility: [facility] Address: [address] [place] [address] Performed By: #### A LLBG ####[facility] LABCLIA [id number] [place] [address] [place] Oxygen (Bld) [Partial pressure] 142 mm Hg High 85-95 [facility] Comment on above: Order Comment: Speci men Type: ARTERIAL BLOOD SPECIMENOrdering Facility: [facility] Address: [address] [place] [address] Performed By: #### A LLBG ####[facility] LABCLIA [id number] [place] [address] [place] Oxyhemoglobin (BldA) [Mass fraction] 96 % Normal 95-98 [facility] Comment on above: Order Comment: Speci men Type: ARTERIAL BLOOD SPECIMENOrdering Facility: [facility] Address: [address] [place] [address] Performed By: #### A LLBG ####[facility] LABIA [id number] [place] [address] [place] pH (Bld) 7.39 [pH] Normal 7.35-7.45 [facility] Comment on above: Order Comment: Speci men Type: ARTERIAL BLOOD SPECIMENOrdering Facility: [facility] Address: [address] [place] [address] Performed By: #### A LLBG ####[facility] LABCLIA [id number] [place] [address] [place] Potassium [Moles/Vol] 4.1 mmol/L Normal 3.5-5.0 [facility] Comment on above: Order Comment: Speci men Type: ARTERIAL BLOOD SPECIMENOrdering Facility: [facility] Address: [address] [place] [address] Performed By: #### A LLBG ####[facility] LABCLIA [id number] [place] [address] [place] Sodium [Moles/Vol] 136 mmol/L Normal 136-144 [facility] Comment on above: Order Comment: Speci men Type: ARTERIAL BLOOD SPECIMENOrdering Facility: [facility] Address: [address] [place] [address] Performed By: #### A LLBG ####[facility] LABCLIA [id number] [place] [address] [place] Base excess Calc (Bld) [Moles/Vol] 6 mmol/L High 0-2 [facility] Comment on above: Order Comment: Speci men Type: ARTERIAL BLOOD SPECIMENOrdering Facility: [facility] Address: [address] [place] [address] Performed By: #### A LLBG ####[facility] LABIA [id number] [place] [address] [place] Body temperature 98.6 [degF] Normal [facility] Comment on above: Order Comment: Speci men Type: ARTERIAL BLOOD SPECIMENOrdering Facility: [facility] Address: [address] [place] [address] Performed By: #### A LLBG ####[facility] [id number] [place] [address] [place] Calcium.ionized (Bld) [Mass/Vol] 1.17 mmol/L Normal 1.08-1.30 [facility] Comment on above: Order Comment: Speci men Type: ARTERIAL BLOOD SPECIMENOrdering Facility: [facility] Address: [address] [place] [address] Performed By: #### A LLBG ####[facility] [id number] [place] [address] [place] Calcium.ionized adjusted to pH 7.4 (BldA) [Moles/Vol] 1.16 mmol/L Normal 1.08-1.30 [facility] Comment on above: Order Comment: Speci men Type: ARTERIAL BLOOD SPECIMENOrdering Facility: [facility] Address: [address] [place] [address] Performed By: #### A LLBG ####[facility] LABIA [id number] [place] [address] [place] Carboxyhemoglobin (BldA) [Mass fraction] 2.3 % High 0.0-2.0 [facility] Comment on above: Order Comment: Speci men Type: ARTERIAL BLOOD SPECIMENOrdering Facility: [facility] Address: [address] [place] [address] Result Comment: Carb oxyhemoglobin Reference Range for Smokers: 2.0-8.0% Performed By: #### A LLBG ####[facility] LABCLIA [id number] [place] [address] [place] CO2 (Bld) [Partial pressure] 53 mm Hg High 36-46 [facility] Comment on above: Order Comment: Speci men Type: ARTERIAL BLOOD SPECIMENOrdering Facility: [facility] Address: [address] [place] [address] Performed By: #### A LLBG ####[facility] LABCLIA [id number] [place] [address] [place] Glucose [Mass/Vol] 104 mg/dL Normal 60-105 [facility] Comment on above: Order Comment: Speci men Type: ARTERIAL BLOOD SPECIMENOrdering Facility: [facility] Address: [address] [place] [address] Performed By: #### A LLBG ####[facility] LABCLIA [id number] [place] [address] [place] HCO3 (Bld) [Moles/Vol] 32 mmol/L High 22-26 [facility] Comment on above: Order Comment: Speci men Type: ARTERIAL BLOOD SPECIMENOrdering Facility: [facility] Address: [address] [place] [address] Performed By: #### A LLBG ####[facility] LABCLIA [id number] [place] [address] [place] Hematocrit (Bld) [Volume fraction] 29.7 % Low 39.0-51.0 [facility] Comment on above: Order Comment: Speci men Type: ARTERIAL BLOOD SPECIMENOrdering Facility: [facility] Address: [address], [place] [address] Performed By: #### A LLBG ####[facility] LABCLIA [id number] [place] [address] [place] Hemoglobin (Bld) [Mass/Vol] 9.6 g/dL Low 13.0-17.0 [facility] Comment on above: Order Comment: Speci men Type: ARTERIAL BLOOD SPECIMENOrdering Facility: [facility] Address: [address] [place] [address] Performed By: #### A LLBG ####[facility] LABCLIA [id number] [place] [address] [place] Lactate [Moles/Vol] 0.7 mmol/L Normal 0.5-2.2 [facility] Comment on above: Order Comment: Speci men Type: ARTERIAL BLOOD SPECIMENOrdering Facility: [facility] Address: [address] [place] [address] Performed By: #### A LLBG ####[facility] LABIA [id number] [place] [address] [place] LITERS 4 Liters/min Normal [facility] Comment on above: Order Comment: Speci men Type: ARTERIAL BLOOD SPECIMENOrdering Facility: [facility] Address: [address] [place] [address] Performed By: #### A LLBG ####[facility] LABIA [id number] [place] [address] [place] Methemoglobin (Bld) [Mass fraction] 0.9 % Normal 0.0-1.5 [facility] Comment on above: Order Comment: Speci men Type: ARTERIAL BLOOD SPECIMENOrdering Facility: [facility] Address: [address] [place] [address] Performed By: #### A LLBG ####[facility] LABIA [id number] [place] [address] [place] O2 THERAPY Positive Normal [facility] Comment on above: Order Comment: Speci men Type: ARTERIAL BLOOD SPECIMENOrdering Facility: [facility] Address: [address] [place] [address] Performed By: #### A LLBG ####[facility] LABCLIA [id number] [place] [address] [place] Oxygen (Bld) [Partial pressure] 160 mm Hg High 85-95 [facility] Comment on above: Order Comment: Speci men Type: ARTERIAL BLOOD SPECIMENOrdering Facility: [facility] Address: [address] [place] [address] Performed By: #### A LLBG ####[facility] LABCLIA [id number] [place] [address] [place] Oxyhemoglobin (BldA) [Mass fraction] 97 % Normal 95-98 [facility] Comment on above: Order Comment: Speci men Type: ARTERIAL BLOOD SPECIMENOrdering Facility: [facility] Address: [address] [place] [address] Performed By: #### A LLBG ####[facility] LABCLIA [id number] [place] [address] [place] pH (Bld) 7.40 [pH] Normal 7.35-7.45 [facility] Comment on above: Order Comment: Speci men Type: ARTERIAL BLOOD SPECIMENOrdering Facility: [facility] Address: [address] [place] [address] Performed By: #### A LLBG ####[facility] LABCLIA [id number] [place] [address] [place] Potassium [Moles/Vol] 4.2 mmol/L Normal 3.5-5.0 [facility] Comment on above: Order Comment: Speci men Type: ARTERIAL BLOOD SPECIMENOrdering Facility: [facility] Address: [address] [place] [address] Performed By: #### A LLBG ####[facility] LABCLIA [id number] [place] [address] [place] Sodium [Moles/Vol] 136 mmol/L Normal 136-144 [facility] Comment on above: Order Comment: Speci men Type: ARTERIAL BLOOD SPECIMENOrdering Facility: [facility] Address: [address] [place] [address] Performed By: #### A LLBG ####[facility] LABCLIA [id number] [place] [address] [place] CBC panel Auto (Bld)on 01-26 Erythrocyte distribution width (RBC) [Ratio] 14.6 % Normal 11.5-15.0 [facility] Comment on above: Order Comment: Speci men Type: BLOOD SPECIMENOrdering Facility: [facility] Address: [address] [place] [address] Performed By: #### 5 8410-2 ####[facility] LABIA [id number] [address] [place] Hematocrit (Bld) [Volume fraction] 29.9 % Low 39.0-51.0 [facility] Comment on above: Order Comment: Speci men Type: BLOOD SPECIMENOrdering Facility: [facility] Address: [address] [place] [address] Performed By: #### 5 8410-2 ####[facility] LABCLIA [id number] [place] [address] [place] Hemoglobin (Bld) [Mass/Vol] 9.7 g/dL Low 13.0-17.0 [facility] Comment on above: Order Comment: Speci men Type: BLOOD SPECIMENOrdering Facility: [facility] Address: [address] [place] [address] Performed By: #### 5 8410-2 ####[facility] LABCLIA [id number] [place] [address] [place] MCH (RBC) [Entitic mass] 28.2 pg Normal 26.0-34.0 [facility] Comment on above: Order Comment: Speci men Type: BLOOD SPECIMENOrdering Facility: [facility] Address: [address] [place] [address] Performed By: #### 5 8410-2 ####[facility] LABCLIA [id number] [place] [address] [place] MCHC (RBC) [Mass/Vol] 32.4 g/dL Normal 30.5-36.0 [facility] Comment on above: Order Comment: Speci men Type: BLOOD SPECIMENOrdering Facility: [facility] Address: [address] [place] [address] Performed By: #### 5 8410-2 ####[facility] LABIA [id number] [place] [address] [place] MCV (RBC) [Entitic vol] 86.9 fL Normal 80.0-100.0 [facility] Comment on above: Order Comment: Speci men Type: BLOOD SPECIMENOrdering Facility: [facility] Address: [address] [place] [address] Performed By: #### 5 8410-2 ####[facility] LABIA [id number] [place] [address] [place] Nucleated RBC (Bld) [#/Vol] 10*3/uL Normal <0.01 [facility] Comment on above: Order Comment: Speci men Type: BLOOD SPECIMENOrdering Facility: [facility] Address: [address] [place] [address] Performed By: #### 5 8410-2 ####[facility] LABIA [id number] [place] [address] [place] Platelet mean volume (Bld) [Entitic vol] 11.3 fL Normal 9.0-12.7 [facility] Comment on above: Order Comment: Speci men Type: BLOOD SPECIMENOrdering Facility: [facility] Address: [address] [place] [address] Performed By: #### 5 8410-2 ####[facility] LABCLIA [id number] [place] [address] [place] Platelets (Bld) [#/Vol] 122 10*3/uL Low 150-400 [facility] Comment on above: Order Comment: Speci men Type: BLOOD SPECIMENOrdering Facility: [facility] Address: [address] [place] [address] Result Comment: No c lot detected.Results checked and verified. Performed By: #### 5 8410-2 ####[facility] LABCLIA [id number] [place] [address] [place] RBC (Bld) [#/Vol] 3.44 10*6/uL Low 4.20-6.00 [facility] Comment on above: Order Comment: Speci men Type: BLOOD SPECIMENOrdering Facility: [facility] Address: [address] [place] [address] Performed By: #### 5 8410-2 ####[facility] LABCLIA [id number] [place] [address] [place] WBC (Bld) [#/Vol] 9.60 10*3/uL Normal 3.70-11.00 [facility] Comment on above: Order Comment: Speci men Type: BLOOD SPECIMENOrdering Facility: [facility] Address: [address] [place] [address] Performed By: #### 5 8410-2 ####[facility] LABCLIA [id number] [place] [id number] [place] Comprehensive metabolic 2000 panelon 01-27-2024 Albumin [Mass/Vol] 3.9 g/dL Normal 3.9-4.9 [facility] Comment on above: Order Comment: Speci men Type: BLOOD SPECIMENOrdering Facility: [facility] Address: [address] [place] [address] Performed By: #### 2 4323-8 ####[facility] LABCLIA [id number] [place] [address] [place] ALP [Catalytic activity/Vol] 46 U/L Normal 38-113 [facility] Comment on above: Order Comment: Speci men Type: BLOOD SPECIMENOrdering Facility: [facility] Address: [address] [place] [address] Performed By: #### 2 4323-8 ####[facility] LABCLIA [id number] [place] [address] [place] ALT [Catalytic activity/Vol] 17 U/L Normal 10-54 [facility] Comment on above: Order Comment: Speci men Type: BLOOD SPECIMENOrdering Facility: [facility] Address: [address] [place] [address] Performed By: #### 2 4323-8 ####[facility] LABCLIA [id number] [place] [address] [place] Anion gap [Moles/Vol] 14 mmol/L Normal 8-15 [facility] Comment on above: Order Comment: Speci men Type: BLOOD SPECIMENOrdering Facility: [facility] Address: [address] [place] [address] Performed By: #### 2 4323-8 ####[facility] LABCLIA [id number] [place] [address] [place] AST [Catalytic activity/Vol] 52 U/L High 14-40 [facility] Comment on above: Order Comment: Speci men Type: BLOOD SPECIMENOrdering Facility: [facility] Address: [address] [place] [address] Performed By: #### 2 4323-8 ####[facility] LABCLIA [id number] [place] [address] [place] Bilirubin [Mass/Vol] 0.6 mg/dL Normal 0.2-1.3 [facility] Comment on above: Order Comment: Speci men Type: BLOOD SPECIMENOrdering Facility: [facility] Address: [address] [place] [address] Performed By: #### 2 4323-8 ####[facility] LABCLIA [id number] [address] [address] [place] Calcium [Mass/Vol] 8.9 mg/dL Normal 8.5-10.2 [facility] Comment on above: Order Comment: Speci men Type: BLOOD SPECIMENOrdering Facility: [facility] Address: [address] [place], [place] [address] Performed By: #### 2 4323-8 ####[facility] LABCLIA [id number] [place] [address] [place] Chloride [Moles/Vol] 97 mmol/L Low 98-107 [facility] Comment on above: Order Comment: Speci men Type: BLOOD SPECIMENOrdering Facility: [facility] Address: [address] [place], [place] [address] Performed By: #### 2 4323-8 ####[facility] LABCLIA [id number] [place] [address] [place] CO2 [Moles/Vol] 27 mmol/L Normal 22-30 [facility] Comment on above: Order Comment: Speci men Type: BLOOD SPECIMENOrdering Facility: [facility] Address: [address] [place], [place] [address] Performed By: #### 2 4323-8 ####[facility] LABCLIA [id number] [place] [id number] [place] Creatinine [Mass/Vol] 0.95 mg/dL Normal 0.73-1.22 [facility] Comment on above: Order Comment: Speci men Type: BLOOD SPECIMENOrdering Facility: [facility] Address: [address] [place] [address] Performed By: #### 2 4323-8 ####[facility] LABCLIA [id number] [place] [address] [place] Creatinine and Glomerular filtration rate.predicted panel (S/P/Bld) 88 mL/min/1.73m??? Normal >=60 [facility] Comment on above: Order Comment: Jeison parry Type: BLOOD SPECIMENOrdering Facility: [facility] Address: [address] [place] [address] Result Comment: Talisha mated Glomerular Filtration Rate [...] actual GFR. Performed By: #### 2 4323-8 ####[facility] LABIA [id number] [place] [address] [place] Glucose [Mass/Vol] 96 mg/dL Normal 74-99 [facility] Comment on above: Order Comment: Jeison parry Type: BLOOD SPECIMENOrdering Facility: [facility] Address: [address] [place] [address] Result Comment: The [place] [employer] (ADA) provides guidance for cutoff [...] Standards of Medical Care in Diabetes 2016, [place] [employer]. Diabetes Care. 2016.39(Suppl 1). Performed By: #### 2 4323-8 ####[facility] LABIA [id number] [place] [address] [place] Potassium [Moles/Vol] 4.0 mmol/L Normal 3.7-5.1 [facility] Comment on above: Order Comment: Speci men Type: BLOOD SPECIMENOrdering Facility: [facility] Address: [address] [place], [place] [address] Performed By: #### 2 4323-8 ####[facility] LABCLIA [id number] [place] [address] [place] Protein [Mass/Vol] 6.4 g/dL Normal 6.3-8.0 [facility] Comment on above: Order Comment: Speci men Type: BLOOD SPECIMENOrdering Facility: [facility] Address: [address] [place] [address] Performed By: #### 2 4323-8 ####[facility] LABCLIA [id number] [place] [address] [place] Sodium [Moles/Vol] 138 mmol/L Normal 136-144 [facility] Comment on above: Order Comment: Speci men Type: BLOOD SPECIMENOrdering Facility: [facility] Address: [address] [place], [place] [address] Performed By: #### 2 4323-8 ####[facility] LABCLIA [id number] [place] [address] [place] Urea nitrogen [Mass/Vol] 35 mg/dL High 9-24 [facility] Comment on above: Order Comment: Speci men Type: BLOOD SPECIMENOrdering Facility: [facility] Address: [address] [place] [address] Performed By: #### 2 4323-8 ####[facility] LABCLIA [id number] [place] [id number] [place] [id number] 01-27-2024 ECG01 Normal [facility] Fibrinogen PPP-mCncon 2023 Fibrinogen Coag (PPP) [Mass/Vol] 618 mg/dL High 200-400 [facility] Comment on above: Order Comment: Speci men Type: BLOOD SPECIMENOrdering Facility: [facility] Address: [address] [place] [id number] Performed By: #### 1 4979-9, 3255-7, 78752-4 ####[facility] LABCLIA [id number] [place] [address] [place] PT panel Coag (PPP)on 2023 INR Coag (PPP) [Relative time] 1.0 {INR} Normal 0.9-1.3 [facility] Comment on above: Order Comment: Jeison brinda Type: BLOOD SPECIMENOrdering Facility: [facility] Address: [address] [place] [address] Result Comment: Indu min K Antagonist (VKA) Therapeutic Range: INR 2 to 3 (Target INR of 2.5)Note: For patients treated with VKA drugs, such as warfarin, the [place] [employer] 2012 Guideline recommends [...] al. Chest 2012, 141:7S-47SNishimura RA, et al. [facility] 2017, 70: 252-289 Performed By: #### 1 4979-9, 3255-7, 71421-1 ####[facility] LABIA [id number] [place] [id number] [place] PT Coag (PPP) [Time] 10.5 s Normal 9.7-13.0 [facility] Comment on above: Order Comment: Speci men Type: BLOOD SPECIMENOrdering Facility: [facility] Address: [address] [place] [address] Performed By: #### 1 4979-9, 3255-7, 46703-9 ####[facility] LABCLIA [id number] [place] [address] [place] TYPE + SCREENon 01-27-2024 ABO O Normal [facility] Comment on above: Order Comment: Speci men Type: BLOOD SPECIMENOrdering Facility: [facility] Address: [address] [place] [address] Performed By: #### T SCR ####[facility] BLOOD BANKCLIA [id number] [place] [address] [place] Rh Nom (Bld) Positive Normal [facility] Comment on above: Order Comment: Speci men Type: BLOOD SPECIMENOrdering Facility: [facility] Address: [address] [place] [address] Performed By: #### T SCR ####[facility] BLOOD BANKCLIA [id number] [place] [address] [place] TYPE AND SCREEN EXPIRATION 01/30/2024 23:59 Normal [facility] Comment on above: Order Comment: Speci men Type: BLOOD SPECIMENOrdering Facility: [facility] Address: [address] [place] [address] Performed By: #### T SCR ####[facility] BLOOD BANKCLIA [id number] [place] [address] [place] XR CHEST 1V FRONTAL PORTon 1 XR CHEST 1V FRONTAL PORT Normal [facility] aPTT PPPon 01-27-2024 aPTT Coag (PPP) [Time] 27.6 s Normal 23.0-32.4 [facility] Comment on above: Order Comment: Speci men Type: BLOOD SPECIMENOrdering Facility: [facility] Address: [address] [place] [address] Performed By: #### 1 4979-9, 3255-7, 49087-5 ####[facility] LABCLIA [id number] [place] [address] [place] ARTERIAL BLOOD GASESon 01-25 Base excess Calc (Bld) [Moles/Vol] 6 mmol/L High 0-2 [facility] Comment on above: Order Comment: Speci men Type: ARTERIAL BLOOD SPECIMENOrdering Facility: [facility] Address: [address] [place] [address] Performed By: #### A LLBG ####[facility] LABIA [id number] [place] [address] [place] Body temperature 98.6 [degF] Normal [facility] Comment on above: Order Comment: Speci men Type: ARTERIAL BLOOD SPECIMENOrdering Facility: [facility] Address: [address] [place] [address] Performed By: #### A LLBG ####[facility] [id number] [place] [address] [place] Calcium.ionized (Bld) [Mass/Vol] 1.20 mmol/L Normal 1.08-1.30 [facility] Comment on above: Order Comment: Speci men Type: ARTERIAL BLOOD SPECIMENOrdering Facility: [facility] Address: [address] [place] [address] Performed By: #### A LLBG ####[facility] [id number] [place] [address] [place] Calcium.ionized adjusted to pH 7.4 (BldA) [Moles/Vol] 1.19 mmol/L Normal 1.08-1.30 [facility] Comment on above: Order Comment: Speci men Type: ARTERIAL BLOOD SPECIMENOrdering Facility: [facility] Address: [address] [place] [address] Performed By: #### A LLBG ####[facility] [id number] [place] [address] [place] Carboxyhemoglobin (BldA) [Mass fraction] 2.3 % High 0.0-2.0 [facility] Comment on above: Order Comment: Speci men Type: ARTERIAL BLOOD SPECIMENOrdering Facility: [facility] Address: [address] [place] [address] Result Comment: Carb oxyhemoglobin Reference Range for Smokers: 2.0-8.0% Performed By: #### A LLBG ####[facility] LABCLIA [id number] [place] [address] [place] CO2 (Bld) [Partial pressure] 51 mm Hg High 36-46 [facility] Comment on above: Order Comment: Speci men Type: ARTERIAL BLOOD SPECIMENOrdering Facility: [facility] Address: [address] [place] [address] Performed By: #### A LLBG ####[facility] LABCLIA [id number] [place] [address] [place] Glucose [Mass/Vol] 103 mg/dL Normal 60-105 [facility] Comment on above: Order Comment: Speci men Type: ARTERIAL BLOOD SPECIMENOrdering Facility: [facility] Address: [address] [place] [address] Performed By: #### A LLBG ####[facility] LABCLIA [id number] [place] [address] [place] HCO3 (Bld) [Moles/Vol] 31 mmol/L High 22-26 [facility] Comment on above: Order Comment: Speci men Type: ARTERIAL BLOOD SPECIMENOrdering Facility: [facility] Address: [address] [place] [address] Performed By: #### A LLBG ####[facility] LABCLIA [id number] [place] [address] [place] Hematocrit (Bld) [Volume fraction] 30.3 % Low 39.0-51.0 [facility] Comment on above: Order Comment: Speci men Type: ARTERIAL BLOOD SPECIMENOrdering Facility: [facility] Address: [address] [place] [address] Performed By: #### A LLBG ####[facility] LABCLIA [id number] [place] [address] [place] Hemoglobin (Bld) [Mass/Vol] 9.8 g/dL Low 13.0-17.0 [facility] Comment on above: Order Comment: Speci men Type: ARTERIAL BLOOD SPECIMENOrdering Facility: [facility] Address: [address] [place] [address] Performed By: #### A LLBG ####[facility] LABCLIA [id number] [place] [address] [place] Lactate [Moles/Vol] 0.6 mmol/L Normal 0.5-2.2 [facility] Comment on above: Order Comment: Speci men Type: ARTERIAL BLOOD SPECIMENOrdering Facility: [facility] Address: [address] [place] [address] Performed By: #### A LLBG ####[facility] LABCLIA [id number] [place] [address] [place] LITERS 2 Liters/min Normal [facility] Comment on above: Order Comment: Speci men Type: ARTERIAL BLOOD SPECIMENOrdering Facility: [facility] Address: [address] [place] [address] Performed By: #### A LLBG ####[facility] LABCLIA [id number] [place] [address] [place] Methemoglobin (Bld) [Mass fraction] 0.8 % Normal 0.0-1.5 [facility] Comment on above: Order Comment: Speci men Type: ARTERIAL BLOOD SPECIMENOrdering Facility: [facility] Address: [address] [place] [address] Performed By: #### A LLBG ####[facility] LABCLIA [id number] [place] [address] [place] O2 THERAPY Positive Normal [facility] Comment on above: Order Comment: Speci men Type: ARTERIAL BLOOD SPECIMENOrdering Facility: [facility] Address: [address] [place] [address] Performed By: #### A LLBG ####[facility] LABCLIA [id number] [place] [address] [place] Oxygen (Bld) [Partial pressure] 70 mm Hg Low 85-95 [facility] Comment on above: Order Comment: Speci men Type: ARTERIAL BLOOD SPECIMENOrdering Facility: [facility] Address: [address] [place] [address] Performed By: #### A LLBG ####[facility] LABCLIA [id number] [place] [address] [place] Oxyhemoglobin (BldA) [Mass fraction] 92 % Low 95-98 [facility] Comment on above: Order Comment: Speci men Type: ARTERIAL BLOOD SPECIMENOrdering Facility: [facility] Address: [address] [place] [address] Performed By: #### A LLBG ####[facility] LABCLIA [id number] [place] [address] [place] pH (Bld) 7.40 [pH] Normal 7.35-7.45 [facility] Comment on above: Order Comment: Speci men Type: ARTERIAL BLOOD SPECIMENOrdering Facility: [facility] Address: [address] [place] [address] Performed By: #### A LLBG ####[facility] LABCLIA [id number] [place] [address] [place] Potassium [Moles/Vol] 3.9 mmol/L Normal 3.5-5.0 [facility] Comment on above: Order Comment: Speci men Type: ARTERIAL BLOOD SPECIMENOrdering Facility: [facility] Address: [address] [place] [address] Performed By: #### A LLBG ####[facility] LABCLIA [id number] [place] [address] [place] Sodium [Moles/Vol] 137 mmol/L Normal 136-144 [facility] Comment on above: Order Comment: Speci men Type: ARTERIAL BLOOD SPECIMENOrdering Facility: [facility] Address: [address] [place] [address] Performed By: #### A LLBG ####[facility] LABCLIA [id number] [place] [address] [place] Base excess Calc (Bld) [Moles/Vol] 6 mmol/L High 0-2 [facility] Comment on above: Order Comment: Speci men Type: ARTERIAL BLOOD SPECIMENOrdering Facility: [facility] Address: [address] [place] [address] Performed By: #### A LLBG ####[facility] LABCLIA [id number] [place] [address] [place] Body temperature 98.6 [degF] Normal [facility] Comment on above: Order Comment: Speci men Type: ARTERIAL BLOOD SPECIMENOrdering Facility: [facility] Address: [address] [place] [address] Performed By: #### A LLBG ####[facility] LABCLIA [id number] [place] [address] [place] Calcium.ionized (Bld) [Mass/Vol] 1.18 mmol/L Normal 1.08-1.30 [facility] Comment on above: Order Comment: Speci men Type: ARTERIAL BLOOD SPECIMENOrdering Facility: [facility] Address: [address] [place] [address] Performed By: #### A LLBG ####[facility] LABCLIA [id number] [place] [address] [place] Calcium.ionized adjusted to pH 7.4 (BldA) [Moles/Vol] 1.18 mmol/L Normal 1.08-1.30 [facility] Comment on above: Order Comment: Speci men Type: ARTERIAL BLOOD SPECIMENOrdering Facility: [facility] Address: [address] [place] [address] Performed By: #### A LLBG ####[facility] LABCLIA [id number] [place] [address] [place] Carboxyhemoglobin (BldA) [Mass fraction] 2.0 % Normal 0.0-2.0 [facility] Comment on above: Order Comment: Speci men Type: ARTERIAL BLOOD SPECIMENOrdering Facility: [facility] Address: [address] [place] [address] Result Comment: Carb oxyhemoglobin Reference Range for Smokers: 2.0-8.0% Performed By: #### A LLBG ####[facility] LABCLIA [id number] [place] [address] [place] CO2 (Bld) [Partial pressure] 50 mm Hg High 36-46 [facility] Comment on above: Order Comment: Speci men Type: ARTERIAL BLOOD SPECIMENOrdering Facility: [facility] Address: [address] [place] [address] Performed By: #### A LLBG ####[facility] LABCLIA [id number] [place] [address] [place] Glucose [Mass/Vol] 111 mg/dL High 60-105 [facility] Comment on above: Order Comment: Speci men Type: ARTERIAL BLOOD SPECIMENOrdering Facility: [facility] Address: [address] [place] [address] Performed By: #### A LLBG ####[facility] LABCLIA [id number] [place] [address] [place] HCO3 (Bld) [Moles/Vol] 31 mmol/L High 22-26 [facility] Comment on above: Order Comment: Speci men Type: ARTERIAL BLOOD SPECIMENOrdering Facility: [facility] Address: [address] [place] [address] Performed By: #### A LLBG ####[facility] LABCLIA [id number] [place] [address] [place] Hematocrit (Bld) [Volume fraction] 29.6 % Low 39.0-51.0 [facility] Comment on above: Order Comment: Speci men Type: ARTERIAL BLOOD SPECIMENOrdering Facility: [facility] Address: [address] [place] [address] Performed By: #### A LLBG ####[facility] LABIA [id number] [place] [address] [place] Hemoglobin (Bld) [Mass/Vol] 9.6 g/dL Low 13.0-17.0 [facility] Comment on above: Order Comment: Speci men Type: ARTERIAL BLOOD SPECIMENOrdering Facility: [facility] Address: [address] [place] [address] Performed By: #### A LLBG ####[facility] LABIA [id number] [place] [address] [place] Lactate [Moles/Vol] 0.6 mmol/L Normal 0.5-2.2 [facility] Comment on above: Order Comment: Speci men Type: ARTERIAL BLOOD SPECIMENOrdering Facility: [facility] Address: [address] [place] [address] Performed By: #### A LLBG ####[facility] LABCLIA [id number] [place] [address] [place] LITERS 2 Liters/min Normal [facility] Comment on above: Order Comment: Speci men Type: ARTERIAL BLOOD SPECIMENOrdering Facility: [facility] Address: [address] [place] [address] Performed By: #### A LLBG ####[facility] LABCLIA [id number] [place] [address] [place] Methemoglobin (Bld) [Mass fraction] 0.7 % Normal 0.0-1.5 [facility] Comment on above: Order Comment: Speci men Type: ARTERIAL BLOOD SPECIMENOrdering Facility: [facility] Address: [address] [place] [address] Performed By: #### A LLBG ####[facility] LABCLIA [id number] [place] [address] [place] O2 THERAPY NC = Nasal Cannula Normal [facility] Comment on above: Order Comment: Speci men Type: ARTERIAL BLOOD SPECIMENOrdering Facility: [facility] Address: [address] [place] [address] Performed By: #### A LLBG ####[facility] LABCLIA [id number] [place] [address] [place] Oxygen (Bld) [Partial pressure] 138 mm Hg High 85-95 [facility] Comment on above: Order Comment: Speci men Type: ARTERIAL BLOOD SPECIMENOrdering Facility: [facility] Address: [address] [place] [address] Performed By: #### A LLBG ####[facility] LABCLIA [id number] [place] [address] [place] Oxyhemoglobin (BldA) [Mass fraction] 97 % Normal 95-98 [facility] Comment on above: Order Comment: Speci men Type: ARTERIAL BLOOD SPECIMENOrdering Facility: [facility] Address: [address] [place] [address] Performed By: #### A LLBG ####[facility] LABCLIA [id number] [place] [address] [place] pH (Bld) 7.41 [pH] Normal 7.35-7.45 [facility] Comment on above: Order Comment: Speci men Type: ARTERIAL BLOOD SPECIMENOrdering Facility: [facility] Address: [address] [place] [address] Performed By: #### A LLBG ####[facility] LABCLIA [id number] [place] [address] [place] Potassium [Moles/Vol] 4.1 mmol/L Normal 3.5-5.0 [facility] Comment on above: Order Comment: Speci men Type: ARTERIAL BLOOD SPECIMENOrdering Facility: [facility] Address: [address] [place] [address] Performed By: #### A LLBG ####[facility] LABCLIA [id number] [place] [address] [place] Sodium [Moles/Vol] 136 mmol/L Normal 136-144 [facility] Comment on above: Order Comment: Speci men Type: ARTERIAL BLOOD SPECIMENOrdering Facility: [facility] Address: [address] [place] [address] Performed By: #### A LLBG ####[facility] LABCLIA [id number] [place] [address] [place] Base excess Calc (Bld) [Moles/Vol] 6 mmol/L High 0-2 [facility] Comment on above: Order Comment: Speci men Type: ARTERIAL BLOOD SPECIMENOrdering Facility: [facility] Address: [address] [place] [address] Performed By: #### A LLBG ####[facility] LABIA [id number] [place] [address] [place] Body temperature 98.42 [degF] Normal [facility] Comment on above: Order Comment: Speci men Type: ARTERIAL BLOOD SPECIMENOrdering Facility: [facility] Address: [address] [place] [address] Performed By: #### A LLBG ####[facility] LABCLIA [id number] [place] [address] [place] Calcium.ionized (Bld) [Mass/Vol] 1.16 mmol/L Normal 1.08-1.30 [facility] Comment on above: Order Comment: Speci men Type: ARTERIAL BLOOD SPECIMENOrdering Facility: [facility] Address: [address] [place] [address] Performed By: #### A LLBG ####[facility] LABCLIA [id number] [place] [address] [place] Calcium.ionized adjusted to pH 7.4 (BldA) [Moles/Vol] 1.17 mmol/L Normal 1.08-1.30 [facility] Comment on above: Order Comment: Speci men Type: ARTERIAL BLOOD SPECIMENOrdering Facility: [facility] Address: [address] [place] [address] Performed By: #### A LLBG ####[facility] LABCLIA [id number] [place] [address] [place] Carboxyhemoglobin (BldA) [Mass fraction] 1.6 % Normal 0.0-2.0 [facility] Comment on above: Order Comment: Speci men Type: ARTERIAL BLOOD SPECIMENOrdering Facility: [facility] Address: [address] [place] [address] Result Comment: Carb oxyhemoglobin Reference Range for Smokers: 2.0-8.0% Performed By: #### A LLBG ####[facility] LABCLIA [id number] [place] [address] [place] CO2 (Bld) [Partial pressure] 48 mm Hg High 36-46 [facility] Comment on above: Order Comment: Speci men Type: ARTERIAL BLOOD SPECIMENOrdering Facility: [facility] Address: [address] [place] [address] Performed By: #### A LLBG ####[facility] LABCLIA [id number] [place] [address] [place] CO2 adjusted to patient's actual temperature (Bld) [Partial pressure] 47 mmHg High 36-46 [facility] Comment on above: Order Comment: Speci men Type: ARTERIAL BLOOD SPECIMENOrdering Facility: [facility] Address: [address] [place] [address] Performed By: #### A LLBG ####[facility] LABCLIA [id number] [place] [address] [place] Glucose [Mass/Vol] 110 mg/dL High 60-105 [facility] Comment on above: Order Comment: Speci men Type: ARTERIAL BLOOD SPECIMENOrdering Facility: [facility] Address: [address] [place] [address] Performed By: #### A LLBG ####[facility] LABCLIA [id number] [place] [address] [place] HCO3 (Bld) [Moles/Vol] 31 mmol/L High 22-26 [facility] Comment on above: Order Comment: Speci men Type: ARTERIAL BLOOD SPECIMENOrdering Facility: [facility] Address: [address] [place] [address] Performed By: #### A LLBG ####[facility] LABCLIA [id number] [place] [address] [place] Hematocrit (Bld) [Volume fraction] 31.3 % Low 39.0-51.0 [facility] Comment on above: Order Comment: Speci men Type: ARTERIAL BLOOD SPECIMENOrdering Facility: [facility] Address: [address] [place] [address] Performed By: #### A LLBG ####[facility] LABCLIA [id number] [place] [address] [place] Hemoglobin (Bld) [Mass/Vol] 10.1 g/dL Low 13.0-17.0 [facility] Comment on above: Order Comment: Speci men Type: ARTERIAL BLOOD SPECIMENOrdering Facility: [facility] Address: [address] [place] [address] Performed By: #### A LLBG ####[facility] LABCLIA [id number] [place] [place] [address] [place] Lactate [Moles/Vol] 0.8 mmol/L Normal 0.5-2.2 [facility] Comment on above: Order Comment: Speci men Type: ARTERIAL BLOOD SPECIMENOrdering Facility: [facility] Address: [address] [place] [address] Performed By: #### A LLBG ####[facility] LABCLIA [id number] [place] [address] [place] Methemoglobin (Bld) [Mass fraction] 0.7 % Normal 0.0-1.5 [facility] Comment on above: Order Comment: Speci men Type: ARTERIAL BLOOD SPECIMENOrdering Facility: [facility] Address: [address] [place] [address] Performed By: #### A LLBG ####[facility] LABCLIA [id number] [address] [place] O2 THERAPY [place] = Nasal Cannula Normal [facility] Comment on above: Order Comment: Speci men Type: ARTERIAL BLOOD SPECIMENOrdering Facility: [facility] Address: [address] [place] [address] Performed By: #### A LLBG ####[facility] LABCLIA [id number] [place] [address] [place] Oxygen (Bld) [Partial pressure] 157 mm Hg High 85-95 [facility] Comment on above: Order Comment: Speci men Type: ARTERIAL BLOOD SPECIMENOrdering Facility: [facility] Address: [address] [place] [address] Performed By: #### A LLBG ####[facility] LABCLIA [id number] [place] [address] [place] Oxygen adjusted to patient's actual temperature (Bld) [Partial pressure] 157 mmHg High 85-95 [facility] Comment on above: Order Comment: Speci men Type: ARTERIAL BLOOD SPECIMENOrdering Facility: [facility] Address: [address] [place] [address] Performed By: #### A LLBG ####[facility] LABCLIA [id number] [place] [address] [place] Oxyhemoglobin (BldA) [Mass fraction] 97 % Normal 95-98 [facility] Comment on above: Order Comment: Speci men Type: ARTERIAL BLOOD SPECIMENOrdering Facility: [facility] Address: [address] [place] [address] Performed By: #### A LLBG ####[facility] LABCLIA [id number] [place] [address] [place] pH (Bld) 7.42 [pH] Normal 7.35-7.45 [facility] Comment on above: Order Comment: Speci men Type: ARTERIAL BLOOD SPECIMENOrdering Facility: [facility] Address: [address] [place] [address] Performed By: #### A LLBG ####[facility] LABCLIA [id number] [place] [address] [place] pH adjusted to patient's actual temperature (Bld) 7.43 Normal 7.35-7.45 [facility] Comment on above: Order Comment: Speci men Type: ARTERIAL BLOOD SPECIMENOrdering Facility: [facility] Address: [address] [place] [address] Performed By: #### A LLBG ####[facility] LABIA [id number] [place] [address] [place] Potassium [Moles/Vol] 3.9 mmol/L Normal 3.5-5.0 [facility] Comment on above: Order Comment: Speci men Type: ARTERIAL BLOOD SPECIMENOrdering Facility: [facility] Address: [address] [place] [address] Performed By: #### A LLBG ####[facility] LABIA [id number] [place] [address] [place] Sodium [Moles/Vol] 137 mmol/L Normal 136-144 [facility] Comment on above: Order Comment: Speci men Type: ARTERIAL BLOOD SPECIMENOrdering Facility: [facility] Address: [address] [place] [address] Performed By: #### A LLBG ####[facility] LABCLIA [id number] [place] [address] [place] Base excess Calc (Bld) [Moles/Vol] 5 mmol/L High 0-2 [facility] Comment on above: Order Comment: Speci men Type: ARTERIAL BLOOD SPECIMENOrdering Facility: [facility] Address: [address] [place] [address] Performed By: #### A LLBG ####[facility] LABCLIA [id number] [place] [address] [place] Body temperature 98.78 [degF] Normal [facility] Comment on above: Order Comment: Speci men Type: ARTERIAL BLOOD SPECIMENOrdering Facility: [facility] Address: [address] [place] [address] Performed By: #### A LLBG ####[facility] LABCLIA [id number] [place] [address] [place] Calcium.ionized (Bld) [Mass/Vol] 1.17 mmol/L Normal 1.08-1.30 [facility] Comment on above: Order Comment: Speci men Type: ARTERIAL BLOOD SPECIMENOrdering Facility: [facility] Address: [address] [place] [address] Performed By: #### A LLBG ####[facility] LABCLIA [id number] [place] [address] [place] Calcium.ionized adjusted to pH 7.4 (BldA) [Moles/Vol] 1.18 mmol/L Normal 1.08-1.30 [facility] Comment on above: Order Comment: Speci men Type: ARTERIAL BLOOD SPECIMENOrdering Facility: [facility] Address: [address] [place] [address] Performed By: #### A LLBG ####[facility] LABCLIA [id number] [place] [address] [place] Carboxyhemoglobin (BldA) [Mass fraction] 1.7 % Normal 0.0-2.0 [facility] Comment on above: Order Comment: Speci men Type: ARTERIAL BLOOD SPECIMENOrdering Facility: [facility] Address: [address] [place] [address] Performed By: #### A LLBG ####[facility] LABCLIA [id number] [place] [address] [place] CO2 (Bld) [Partial pressure] 47 mm Hg High 36-46 [facility] Comment on above: Order Comment: Speci men Type: ARTERIAL BLOOD SPECIMENOrdering Facility: [facility] Address: [address] [place] [address] Performed By: #### A LLBG ####[facility] LABCLIA [id number] [place] [address] [place] CO2 adjusted to patient's actual temperature (Bld) [Partial pressure] 47 mmHg High 36-46 [facility] Comment on above: Order Comment: Speci men Type: ARTERIAL BLOOD SPECIMENOrdering Facility: [facility] Address: [address] [place] [address] Performed By: #### A LLBG ####[facility] LABCLIA [id number] [place] [id number] [place] Glucose [Mass/Vol] 109 mg/dL High 60-105 [facility] Comment on above: Order Comment: Speci men Type: ARTERIAL BLOOD SPECIMENOrdering Facility: [facility] Address: [address] [place] [address] Performed By: #### A LLBG ####[facility] LABCLIA [id number] [place] [address] [place] HCO3 (Bld) [Moles/Vol] 29 mmol/L High 22-26 [facility] Comment on above: Order Comment: Speci men Type: ARTERIAL BLOOD SPECIMENOrdering Facility: [facility] Address: [address] [place] [address] Performed By: #### A LLBG ####[facility] LABCLIA [id number] [place] [address] [place] Hematocrit (Bld) [Volume fraction] 31.7 % Low 39.0-51.0 [facility] Comment on above: Order Comment: Speci men Type: ARTERIAL BLOOD SPECIMENOrdering Facility: [facility] Address: [address] [place] [address] Performed By: #### A LLBG ####[facility] LABCLIA [id number] [place] [address] [place] Hemoglobin (Bld) [Mass/Vol] 10.3 g/dL Low 13.0-17.0 [facility] Comment on above: Order Comment: Speci men Type: ARTERIAL BLOOD SPECIMENOrdering Facility: [facility] Address: [address] [place] [address] Performed By: #### A LLBG ####[facility] LABCLIA [id number] [place] [address] [place] Lactate [Moles/Vol] 1.0 mmol/L Normal 0.5-2.2 [facility] Comment on above: Order Comment: Speci men Type: ARTERIAL BLOOD SPECIMENOrdering Facility: [facility] Address: [address] [place] [address] Performed By: #### A LLBG ####[facility] LABCLIA [id number] [place] [address] [place] LITERS 3 Liters/min Normal [facility] Comment on above: Order Comment: Speci men Type: ARTERIAL BLOOD SPECIMENOrdering Facility: [facility] Address: [address] [place] [address] Performed By: #### A LLBG ####[facility] LABCLIA [id number] [place] [address] [place] Methemoglobin (Bld) [Mass fraction] 0.9 % Normal 0.0-1.5 [facility] Comment on above: Order Comment: Speci men Type: ARTERIAL BLOOD SPECIMENOrdering Facility: [facility] Address: [address] [place] [id number] Performed By: #### A LLBG ####[facility] LABCLIA [id number] [place] [id number] [place] O2 THERAPY NC = Nasal Cannula Normal [facility] Comment on above: Order Comment: Speci men Type: ARTERIAL BLOOD SPECIMENOrdering Facility: [facility] Address: [address] [place] [id number] Performed By: #### A LLBG ####[facility] LABCLIA [id number] [place] [id number] [place] Oxygen (Bld) [Partial pressure] 149 mm Hg High 85-95 [facility] Comment on above: Order Comment: Speci men Type: ARTERIAL BLOOD SPECIMENOrdering Facility: [facility] Address: [address] [place] [id number] Performed By: #### A LLBG ####[facility] LABCLIA [id number] [place] [id number] [place] Oxygen adjusted to patient's actual temperature (Bld) [Partial pressure] 150 mmHg High 85-95 [facility] Comment on above: Order Comment: Speci men Type: ARTERIAL BLOOD SPECIMENOrdering Facility: [facility] Address: [address] [place] [id number] Performed By: #### A LLBG ####[facility] LABCLIA [id number] [place] [id number] [place] Oxyhemoglobin (BldA) [Mass fraction] 97 % Normal 95-98 [facility] Comment on above: Order Comment: Speci men Type: ARTERIAL BLOOD SPECIMENOrdering Facility: [facility] Address: [address] [place] [address] Performed By: #### A LLBG ####[facility] LABCLIA [id number] [place] [address] [place] pH (Bld) 7.41 [pH] Normal 7.35-7.45 [facility] Comment on above: Order Comment: Speci men Type: ARTERIAL BLOOD SPECIMENOrdering Facility: [facility] Address: [address] [place] [address] Performed By: #### A LLBG ####[facility] LABCLIA [id number] [place] [address] [place] pH adjusted to patient's actual temperature (Bld) 7.41 Normal 7.35-7.45 [facility] Comment on above: Order Comment: Speci men Type: ARTERIAL BLOOD SPECIMENOrdering Facility: [facility] Address: [address] [place] [address] Performed By: #### A LLBG ####[facility] LABCLIA [id number] [place] [address] [place] Potassium [Moles/Vol] 4.2 mmol/L Normal 3.5-5.0 [facility] Comment on above: Order Comment: Speci men Type: ARTERIAL BLOOD SPECIMENOrdering Facility: [facility] Address: [address] [place] [address] Performed By: #### A LLBG ####[facility] LABCLIA [id number] [place] [address] [place] Sodium [Moles/Vol] 137 mmol/L Normal 136-144 [facility] Comment on above: Order Comment: Speci men Type: ARTERIAL BLOOD SPECIMENOrdering Facility: [facility] Address: [address] [place] [address] Performed By: #### A LLBG ####[facility] LABIA [id number] [place] [address] [place] Base excess Calc (Bld) [Moles/Vol] 5 mmol/L High 0-2 [facility] Comment on above: Order Comment: Speci men Type: ARTERIAL BLOOD SPECIMENOrdering Facility: [facility] Address: [address] [place] [address] Performed By: #### A LLBG ####[facility] LABIA [id number] [place] [address] [place] Body temperature 98.24 [degF] Normal [facility] Comment on above: Order Comment: Speci men Type: ARTERIAL BLOOD SPECIMENOrdering Facility: [facility] Address: [address] [place] [address] Performed By: #### A LLBG ####[facility] [id number] [place] [address] [place] Calcium.ionized (Bld) [Mass/Vol] 1.14 mmol/L Normal 1.08-1.30 [facility] Comment on above: Order Comment: Speci men Type: ARTERIAL BLOOD SPECIMENOrdering Facility: [facility] Address: [address] [place] [address] Performed By: #### A LLBG ####[facility] [id number] [place] [address] [place] Calcium.ionized adjusted to pH 7.4 (BldA) [Moles/Vol] 1.14 mmol/L Normal 1.08-1.30 [facility] Comment on above: Order Comment: Speci men Type: ARTERIAL BLOOD SPECIMENOrdering Facility: [facility] Address: [address] [place] [address] Performed By: #### A LLBG ####[facility] [id number] [place] [address] [place] Carboxyhemoglobin (BldA) [Mass fraction] 1.8 % Normal 0.0-2.0 [facility] Comment on above: Order Comment: Speci men Type: ARTERIAL BLOOD SPECIMENOrdering Facility: [facility] Address: [address] [place] [address] Performed By: #### A LLBG ####[facility] LABCLIA [id number] [place] [address] [place] CO2 (Bld) [Partial pressure] 48 mm Hg High 36-46 [facility] Comment on above: Order Comment: Speci men Type: ARTERIAL BLOOD SPECIMENOrdering Facility: [facility] Address: [address] [place] [address] Performed By: #### A LLBG ####[facility] LABCLIA [id number] [place] [address] [place] CO2 adjusted to patient's actual temperature (Bld) [Partial pressure] 48 mmHg High 36-46 [facility] Comment on above: Order Comment: Speci men Type: ARTERIAL BLOOD SPECIMENOrdering Facility: [facility] Address: [address] [place] [address] Performed By: #### A LLBG ####[facility] LABCLIA [id number] [place] [address] [place] Glucose [Mass/Vol] 114 mg/dL High 60-105 [facility] Comment on above: Order Comment: Speci men Type: ARTERIAL BLOOD SPECIMENOrdering Facility: [facility] Address: [address] [place] [address] Performed By: #### A LLBG ####[facility] LABCLIA [id number] [place] [address] [place] HCO3 (Bld) [Moles/Vol] 30 mmol/L High 22-26 [facility] Comment on above: Order Comment: Speci men Type: ARTERIAL BLOOD SPECIMENOrdering Facility: [facility] Address: [address] [place] [address] Performed By: #### A LLBG ####[facility] LABCLIA [id number] [place] [address] [place] Hematocrit (Bld) [Volume fraction] 31.8 % Low 39.0-51.0 [facility] Comment on above: Order Comment: Speci men Type: ARTERIAL BLOOD SPECIMENOrdering Facility: [facility] Address: [address] [place] [address] Performed By: #### A LLBG ####[facility] LABCLIA [id number] [place] [address] [place] Hemoglobin (Bld) [Mass/Vol] 10.3 g/dL Low 13.0-17.0 [facility] Comment on above: Order Comment: Speci men Type: ARTERIAL BLOOD SPECIMENOrdering Facility: [facility] Address: [address] [place] [address] Performed By: #### A LLBG ####[facility] LABCLIA [id number] [place] [address] [place] Lactate [Moles/Vol] 1.0 mmol/L Normal 0.5-2.2 [facility] Comment on above: Order Comment: Speci men Type: ARTERIAL BLOOD SPECIMENOrdering Facility: [facility] Address: [address] [place] [address] Performed By: #### A LLBG ####[facility] LABCLIA [id number] [place] [address] [place] LITERS 4 Liters/min Normal [facility] Comment on above: Order Comment: Speci men Type: ARTERIAL BLOOD SPECIMENOrdering Facility: [facility] Address: [address] [place] [address] Performed By: #### A LLBG ####[facility] LABCLIA [id number] [place] [address] [place] Methemoglobin (Bld) [Mass fraction] 1.8 % High 0.0-1.5 [facility] Comment on above: Order Comment: Speci men Type: ARTERIAL BLOOD SPECIMENOrdering Facility: [facility] Address: [address] [place] [address] Performed By: #### A LLBG ####[facility] LABCLIA [id number] [address] [address] [place] O2 THERAPY NC = Nasal Cannula Normal [facility] Comment on above: Order Comment: Speci men Type: ARTERIAL BLOOD SPECIMENOrdering Facility: [facility] Address: [address] [place] [id number] Performed By: #### A LLBG ####[facility] LABCLIA [id number] [place] [address] [place] Oxygen (Bld) [Partial pressure] 117 mm Hg High 85-95 [facility] Comment on above: Order Comment: Speci men Type: ARTERIAL BLOOD SPECIMENOrdering Facility: [facility] Address: [address] [place] [address] Performed By: #### A LLBG ####[facility] LABCLIA [id number] [place] [address] [place] Oxygen adjusted to patient's actual temperature (Bld) [Partial pressure] 116 mmHg High 85-95 [facility] Comment on above: Order Comment: Speci men Type: ARTERIAL BLOOD SPECIMENOrdering Facility: [facility] Address: [address] [place] [id number] Performed By: #### A LLBG ####[facility] LABCLIA [id number] [address] [address] [place] Oxyhemoglobin (BldA) [Mass fraction] 95 % Normal 95-98 [facility] Comment on above: Order Comment: Speci men Type: ARTERIAL BLOOD SPECIMENOrdering Facility: [facility] Address: [address] [place] [id number] Performed By: #### A LLBG ####[facility] LABCLIA [id number] [place] [address] [place] pH (Bld) 7.41 [pH] Normal 7.35-7.45 [facility] Comment on above: Order Comment: Speci men Type: ARTERIAL BLOOD SPECIMENOrdering Facility: [facility] Address: [address] [place] [address] Performed By: #### A LLBG ####[facility] LABCLIA [id number] [place] [address] [place] pH adjusted to patient's actual temperature (Bld) 7.41 Normal 7.35-7.45 [facility] Comment on above: Order Comment: Speci men Type: ARTERIAL BLOOD SPECIMENOrdering Facility: [facility] Address: [address] [place] [address] Performed By: #### A LLBG ####[facility] LABIA [id number] [place] [address] [place] Potassium [Moles/Vol] 4.8 mmol/L Normal 3.5-5.0 [facility] Comment on above: Order Comment: Speci men Type: ARTERIAL BLOOD SPECIMENOrdering Facility: [facility] Address: [address] [place] [address] Performed By: #### A LLBG ####[facility] LABIA [id number] [place] [address] [place] Sodium [Moles/Vol] 137 mmol/L Normal 136-144 [facility] Comment on above: Order Comment: Speci men Type: ARTERIAL BLOOD SPECIMENOrdering Facility: [facility] Address: [address] [place] [address] Performed By: #### A LLBG ####[facility] LABCLIA [id number] [place] [address] [place] Base excess Calc (Bld) [Moles/Vol] 3 mmol/L High 0-2 [facility] Comment on above: Order Comment: Speci men Type: ARTERIAL BLOOD SPECIMENOrdering Facility: [facility] Address: [address] [place] [address] Performed By: #### A LLBG ####[facility] LABCLIA [id number] [place] [address] [place] Body temperature 98.6 [degF] Normal [facility] Comment on above: Order Comment: Speci men Type: ARTERIAL BLOOD SPECIMENOrdering Facility: [facility] Address: [address] [place] [address] Performed By: #### A LLBG ####[facility] LABCLIA [id number] [address] [place] Order Comment: Speci men Type: VENOUS BLOOD SPECIMENOrdering Facility: [facility] Address: [address] [place] [address] Performed By: #### 2 [id number] ####[facility] LABCLIA [id number] [place] [address] [place] Calcium.ionized (Bld) [Mass/Vol] 1.33 mmol/L High 1.08-1.30 [facility] Comment on above: Order Comment: Speci men Type: ARTERIAL BLOOD SPECIMENOrdering Facility: [facility] Address: [address] [place] [address] Performed By: #### A LLBG ####[facility] LABCLIA [id number] [address] [place] Calcium.ionized adjusted to pH 7.4 (BldA) [Moles/Vol] 1.30 mmol/L Normal 1.08-1.30 [facility] Comment on above: Order Comment: Speci men Type: ARTERIAL BLOOD SPECIMENOrdering Facility: [facility] Address: [address] [place] [address] Performed By: #### A LLBG ####[facility] LABCLIA [id number] [address] [place] Carboxyhemoglobin (BldA) [Mass fraction] 2.0 % Normal 0.0-2.0 [facility] Comment on above: Order Comment: Speci men Type: ARTERIAL BLOOD SPECIMENOrdering Facility: [facility] Address: [address] [place] [address] Result Comment: Carb oxyhemoglobin Reference Range for Smokers: 2.0-8.0% Performed By: #### A LLBG ####[facility] LABCLIA [id number] [place] [address] [place] CO2 (Bld) [Partial pressure] 53 mm Hg High 36-46 [facility] Comment on above: Order Comment: Speci men Type: ARTERIAL BLOOD SPECIMENOrdering Facility: [facility] Address: [address] [place] [address] Performed By: #### A LLBG ####[facility] [facility] LABCLIA [id number] [place] [address] [place] Glucose [Mass/Vol] 118 mg/dL High 60-105 [facility] Comment on above: Order Comment: Speci men Type: ARTERIAL BLOOD SPECIMENOrdering Facility: [facility] Address: [address] [place] [address] Performed By: #### A LLBG ####[facility] LABCLIA [id number] [place] [address] [place] HCO3 (Bld) [Moles/Vol] 29 mmol/L High 22-26 [facility] Comment on above: Order Comment: Speci men Type: ARTERIAL BLOOD SPECIMENOrdering Facility: [facility] Address: [address] [place] [address] Performed By: #### A LLBG ####[facility] LABCLIA [id number] [place] [address] [place] Hematocrit (Bld) [Volume fraction] 30.7 % Low 39.0-51.0 [facility] Comment on above: Order Comment: Speci men Type: ARTERIAL BLOOD SPECIMENOrdering Facility: [facility] Address: [address] [place] [address] Performed By: #### A LLBG ####[facility] LABCLIA [id number] [place] [address] [place] Hemoglobin (Bld) [Mass/Vol] 9.9 g/dL Low 13.0-17.0 [facility] Comment on above: Order Comment: Speci men Type: ARTERIAL BLOOD SPECIMENOrdering Facility: [facility] Address: [address] [place] [address] Performed By: #### A LLBG ####[facility] LABCLIA [id number] [place] [address] [place] Lactate [Moles/Vol] 0.8 mmol/L Normal 0.5-2.2 [facility] Comment on above: Order Comment: Speci men Type: ARTERIAL BLOOD SPECIMENOrdering Facility: [facility] Address: [address] [place] [address] Performed By: #### A LLBG ####[facility] LABCLIA [id number] [place] [address] [place] Order Comment: Speci men Type: VENOUS BLOOD SPECIMENOrdering Facility: [facility] Address: [address] [place] [address] Performed By: #### 2 4344-4 ####[facility] LABCLIA [id number] [place] [address] [place] 3 Liters/min Normal [facility] Comment on above: Order Comment: Speci men Type: ARTERIAL BLOOD SPECIMENOrdering Facility: [facility] Address: [address] [place] [address] Performed By: #### A LLBG ####[facility] LABCLIA [id number] [place] [address] [place] Methemoglobin (Bld) [Mass fraction] 0.6 % Normal 0.0-1.5 [facility] Comment on above: Order Comment: Speci men Type: ARTERIAL BLOOD SPECIMENOrdering Facility: [facility] Address: [address] [place] [address] Performed By: #### A LLBG ####[facility] LABCLIA [id number] [address] [address] [place] Order Comment: Speci men Type: VENOUS BLOOD SPECIMENOrdering Facility: [facility] Address: [address] [place] [address] Performed By: #### 2 4344-4 ####[facility] LABCLIA [id number] [place] [address] [place] O2 THERAPY NC = Nasal Cannula Normal [facility] Comment on above: Order Comment: Speci men Type: ARTERIAL BLOOD SPECIMENOrdering Facility: [facility] Address: [address] [place] [address] Performed By: #### A LLBG ####[facility] LABCLIA [id number] [place] [id number] [place] Order Comment: Speci men Type: VENOUS BLOOD SPECIMENOrdering Facility: [facility] Address: [address] [place], [place] [address] Performed By: #### 2 4344-4 ####[facility] LABCLIA [id number] [place] [id number] [place] Oxygen (Bld) [Partial pressure] 167 mm Hg High 85-95 [facility] Comment on above: Order Comment: Speci men Type: ARTERIAL BLOOD SPECIMENOrdering Facility: [facility] Address: [address] [place], [place] [address] Performed By: #### A LLBG ####[facility] LABCLIA [id number] [address] [address] [place] Oxyhemoglobin (BldA) [Mass fraction] 97 % Normal 95-98 [facility] Comment on above: Order Comment: Speci men Type: ARTERIAL BLOOD SPECIMENOrdering Facility: [facility] Address: [address] [place] [address] Performed By: #### A LLBG ####[facility] LABCLIA [id number] [place] [address] [place] pH (Bld) 7.36 [pH] Normal 7.35-7.45 [facility] Comment on above: Order Comment: Speci men Type: ARTERIAL BLOOD SPECIMENOrdering Facility: [facility] Address: [address] [place] [address] Performed By: #### A LLBG ####[facility] LABCLIA [id number] [place] [address] [place] Potassium [Moles/Vol] 4.5 mmol/L Normal 3.5-5.0 [facility] Comment on above: Order Comment: Speci men Type: ARTERIAL BLOOD SPECIMENOrdering Facility: [facility] Address: [address] [place] [address] Performed By: #### A LLBG ####[facility] LABCLIA [id number] [place] [address] [place] Sodium [Moles/Vol] 146 mmol/L High 136-144 [facility] Comment on above: Order Comment: Speci men Type: ARTERIAL BLOOD SPECIMENOrdering Facility: [facility] Address: [address] [place] [address] Performed By: #### A LLBG ####[facility] LABCLIA [id number] [place] [address] [place] Base excess Calc (Bld) [Moles/Vol] 5 mmol/L High 0-2 [facility] Comment on above: Order Comment: Speci men Type: ARTERIAL BLOOD SPECIMENOrdering Facility: [facility] Address: [address] [place], [place] [address] Performed By: #### A LLBG ####[facility] LABCLIA [id number] [place] [address] [place] Body temperature 98.6 [degF] Normal [facility] Comment on above: Order Comment: Speci men Type: ARTERIAL BLOOD SPECIMENOrdering Facility: [facility] Address: [address] [place] [address] Performed By: #### A LLBG ####[facility] LABIA [id number] [place] [address] [place] Order Comment: Speci men Type: VENOUS BLOOD SPECIMENOrdering Facility: [facility] Address: [address] [place] [address] Performed By: #### 2 4344-4 ####[facility] LABIA [id number] [place] [address] [place] Calcium.ionized (Bld) [Mass/Vol] 1.16 mmol/L Normal 1.08-1.30 [facility] Comment on above: Order Comment: Speci men Type: ARTERIAL BLOOD SPECIMENOrdering Facility: [facility] Address: [address] [place] [address] Performed By: #### A LLBG ####[facility] LABIA [id number] [place] [address] [place] Calcium.ionized adjusted to pH 7.4 (BldA) [Moles/Vol] 1.18 mmol/L Normal 1.08-1.30 [facility] Comment on above: Order Comment: Speci men Type: ARTERIAL BLOOD SPECIMENOrdering Facility: [facility] Address: [address] [place] [address] Performed By: #### A LLBG ####[facility] LABIA [id number] [place] [address] [place] Carboxyhemoglobin (BldA) [Mass fraction] 2.2 % High 0.0-2.0 [facility] Comment on above: Order Comment: Speci men Type: ARTERIAL BLOOD SPECIMENOrdering Facility: [facility] Address: [address] [place] [address] Result Comment: Carb oxyhemoglobin Reference Range for Smokers: 2.0-8.0% Performed By: #### A LLBG ####[facility] LABCLIA [id number] [place] [address] [place] CO2 (Bld) [Partial pressure] 45 mm Hg Normal 36-46 [facility] Comment on above: Order Comment: Speci men Type: ARTERIAL BLOOD SPECIMENOrdering Facility: [facility] Address: [address] [place] [address] Performed By: #### A LLBG ####[facility] LABCLIA [id number] [place] [address] [place] Glucose [Mass/Vol] 124 mg/dL High 60-105 [facility] Comment on above: Order Comment: Speci men Type: ARTERIAL BLOOD SPECIMENOrdering Facility: [facility] Address: [address] [place] [address] Performed By: #### A LLBG ####[facility] LABCLIA [id number] [place] [address] [place] HCO3 (Bld) [Moles/Vol] 29 mmol/L High 22-26 [facility] Comment on above: Order Comment: Speci men Type: ARTERIAL BLOOD SPECIMENOrdering Facility: [facility] Address: [address] [place] [address] Performed By: #### A LLBG ####[facility] LABCLIA [id number] [place] [address] [place] Hematocrit (Bld) [Volume fraction] 31.2 % Low 39.0-51.0 [facility] Comment on above: Order Comment: Speci men Type: ARTERIAL BLOOD SPECIMENOrdering Facility: [facility] Address: [address] [place] [address] Performed By: #### A LLBG ####[facility] LABCLIA [id number] [place] [address] [place] Hemoglobin (Bld) [Mass/Vol] 10.1 g/dL Low 13.0-17.0 [facility] Comment on above: Order Comment: Speci men Type: ARTERIAL BLOOD SPECIMENOrdering Facility: [facility] Address: [address] [place] [address] Performed By: #### A LLBG ####[facility] LABCLIA [id number] [place] [address] [place] Lactate [Moles/Vol] 0.9 mmol/L Normal 0.5-2.2 [facility] Comment on above: Order Comment: Speci men Type: ARTERIAL BLOOD SPECIMENOrdering Facility: [facility] Address: [address] [place] [address] Performed By: #### A LLBG ####[facility] LABCLIA [id number] [place] [address] [place] LITERS 3 Liters/min Normal [facility] Comment on above: Order Comment: Speci men Type: ARTERIAL BLOOD SPECIMENOrdering Facility: [facility] Address: [address] [place] [address] Performed By: #### A LLBG ####[facility] LABCLIA [id number] [place] [address] [place] Order Comment: Speci men Type: VENOUS BLOOD SPECIMENOrdering Facility: [facility] Address: [address] [place] [address] Performed By: #### 2 4344-4 ####[facility] LABCLIA [id number] [place] [address] [place] Methemoglobin (Bld) [Mass fraction] 0.9 % Normal 0.0-1.5 [facility] Comment on above: Order Comment: Speci men Type: ARTERIAL BLOOD SPECIMENOrdering Facility: [facility] Address: [address] [place] [address] Performed By: #### A LLBG ####[facility] LABCLIA [id number] [place] [address] [place] O2 THERAPY NC = Nasal Cannula Normal [facility] Comment on above: Order Comment: Speci men Type: ARTERIAL BLOOD SPECIMENOrdering Facility: [facility] Address: [address] [place] [address] Performed By: #### A LLBG ####[facility] LABCLIA [id number] [place] [address] [place] Order Comment: Speci men Type: VENOUS BLOOD SPECIMENOrdering Facility: [facility] Address: [address] [place] [address] Performed By: #### 2 4344-4 ####[facility] LABCLIA [id number] [place] [address] [place] Oxygen (Bld) [Partial pressure] 148 mm Hg High 85-95 [facility] Comment on above: Order Comment: Speci men Type: ARTERIAL BLOOD SPECIMENOrdering Facility: [facility] Address: [address] [place] [address] Performed By: #### A LLBG ####[facility] LABCLIA [id number] [place] [address] [place] Oxyhemoglobin (BldA) [Mass fraction] 97 % Normal 95-98 [facility] Comment on above: Order Comment: Speci men Type: ARTERIAL BLOOD SPECIMENOrdering Facility: [facility] Address: [address] [place] [id number] Performed By: #### A LLBG ####[facility] LABCLIA [id number] [place] [address] [place] pH (Bld) 7.43 [pH] Normal 7.35-7.45 [facility] Comment on above: Order Comment: Speci men Type: ARTERIAL BLOOD SPECIMENOrdering Facility: [facility] Address: [address] [place] [address] Performed By: #### A LLBG ####[facility] LABCLIA [id number] [place] [address] [place] Potassium [Moles/Vol] 4.4 mmol/L Normal 3.5-5.0 [facility] Comment on above: Order Comment: Speci men Type: ARTERIAL BLOOD SPECIMENOrdering Facility: [facility] Address: [address] [place] [address] Performed By: #### A LLBG ####[facility] LABCLIA [id number] [place] [address] [place] Order Comment: Speci men Type: VENOUS BLOOD SPECIMENOrdering Facility: [facility] Address: [address] [place] [address] Performed By: #### 2 4344-4 ####[facility] LABCLIA [id number] [place] [address] [place] Sodium [Moles/Vol] 138 mmol/L Normal 136-144 [facility] Comment on above: Order Comment: Speci men Type: ARTERIAL BLOOD SPECIMENOrdering Facility: [facility] Address: [address] [place] [address] Performed By: #### A LLBG ####[facility] LABCLIA [id number] [place] [address] [place] CASE MANAGEMon 01-26-2024 CASE MANAGEM Normal [facility] CBC panel Auto (Bld)on 01-25 Erythrocyte distribution width (RBC) [Ratio] 15.5 % High 11.5-15.0 [facility] Comment on above: Order Comment: Speci men Type: BLOOD SPECIMENOrdering Facility: [facility] Address: [address] [place] [address] Performed By: #### 5 8410-2 ####[facility] LABCLIA [id number] [place] [address] [place] Hematocrit (Bld) [Volume fraction] 30.8 % Low 39.0-51.0 [facility] Comment on above: Order Comment: Speci men Type: BLOOD SPECIMENOrdering Facility: [facility] Address: [address] [place] [address] Performed By: #### 5 8410-2 ####[facility] LABIA [id number] [place] [address] [place] MCH (RBC) [Entitic mass] 28.2 pg Normal 26.0-34.0 [facility] Comment on above: Order Comment: Speci men Type: BLOOD SPECIMENOrdering Facility: [facility] Address: [address] [place] [address] Performed By: #### 5 8410-2 ####[facility] LABIA [id number] [address] [place] MCHC (RBC) [Mass/Vol] 32.5 g/dL Normal 30.5-36.0 [facility] Comment on above: Order Comment: Speci men Type: BLOOD SPECIMENOrdering Facility: [facility] Address: [address] [place] [address] Performed By: #### 5 8410-2 ####[facility] LABIA [id number] [place] [address] [place] MCV (RBC) [Entitic vol] 87.0 fL Normal 80.0-100.0 [facility] Comment on above: Order Comment: Speci men Type: BLOOD SPECIMENOrdering Facility: [facility] Address: [address] [place] [address] Performed By: #### 5 8410-2 ####[facility] LABIA [id number] [place] [address] [place] Nucleated RBC (Bld) [#/Vol] 10*3/uL Normal <0.01 [facility] Comment on above: Order Comment: Speci men Type: BLOOD SPECIMENOrdering Facility: [facility] Address: [address] [place] [address] Performed By: #### 5 8410-2 ####[facility] [id number] [place] [address] [place] Platelet mean volume (Bld) [Entitic vol] 11.1 fL Normal 9.0-12.7 [facility] Comment on above: Order Comment: Speci men Type: BLOOD SPECIMENOrdering Facility: [facility] Address: [address] [place] [address] Performed By: #### 5 8410-2 ####[facility] [id number] [place] [address] [place] Platelets (Bld) [#/Vol] 108 10*3/uL Low 150-400 [facility] Comment on above: Order Comment: Speci men Type: BLOOD SPECIMENOrdering Facility: [facility] Address: [address] [place] [address] Result Comment: Resu lts checked and verified.No clot detected. Performed By: #### 5 8410-2 ####[facility] [id number] [place] [address] [place] RBC (Bld) [#/Vol] 3.54 10*6/uL Low 4.20-6.00 [facility] Comment on above: Order Comment: Speci men Type: BLOOD SPECIMENOrdering Facility: [facility] Address: [address] [place] [address] Performed By: #### 5 8410-2 ####[facility] [id number] [place] [address] [place] WBC (Bld) [#/Vol] 12.52 10*3/uL High 3.70-11.00 [facility] Comment on above: Order Comment: Speci men Type: BLOOD SPECIMENOrdering Facility: [facility] Address: [address] [place] [id number] Performed By: #### 5 8410-2 ####[facility] LABCLIA [id number] [address] [address] [place] Comprehensive metabolic 2000 panelon 01-26-2024 Albumin [Mass/Vol] 4.1 g/dL Normal 3.9-4.9 [facility] Comment on above: Order Comment: Speci men Type: BLOOD SPECIMENOrdering Facility: [facility] Address: [address] [place] [address] Performed By: #### 2 4323-8 ####[facility] LABCLIA [id number] [place] [address] [place] ALP [Catalytic activity/Vol] 45 U/L Normal 38-113 [facility] Comment on above: Order Comment: Speci men Type: BLOOD SPECIMENOrdering Facility: [facility] Address: [address] [place] [address] Performed By: #### 2 4323-8 ####[facility] LABCLIA [id number] [place] [address] [place] ALT [Catalytic activity/Vol] 15 U/L Normal 10-54 [facility] Comment on above: Order Comment: Speci men Type: BLOOD SPECIMENOrdering Facility: [facility] Address: [address] [place] [address] Performed By: #### 2 4323-8 ####[facility] LABCLIA [id number] [place] [id number] [place] Anion gap [Moles/Vol] 13 mmol/L Normal 8-15 [facility] Comment on above: Order Comment: Speci men Type: BLOOD SPECIMENOrdering Facility: [facility] Address: [address] [place] [id number] Performed By: #### 2 4323-8 ####[facility] LABCLIA [id number] [place] [id number] [place] AST [Catalytic activity/Vol] 60 U/L High 14-40 [facility] Comment on above: Order Comment: Speci men Type: BLOOD SPECIMENOrdering Facility: [facility] Address: [address] [place] [address] Performed By: #### 2 4323-8 ####[facility] LABCLIA [id number] [place] [address] [place] Bilirubin [Mass/Vol] 0.9 mg/dL Normal 0.2-1.3 [facility] Comment on above: Order Comment: Speci men Type: BLOOD SPECIMENOrdering Facility: [facility] Address: [address] [place] [address] Performed By: #### 2 4323-8 ####[facility] LABCLIA [id number] [place] [address] [place] Calcium [Mass/Vol] 9.0 mg/dL Normal 8.5-10.2 [facility] Comment on above: Order Comment: Speci men Type: BLOOD SPECIMENOrdering Facility: [facility] Address: [address] [place] [address] Performed By: #### 2 4323-8 ####[facility] LABCLIA [id number] [place] [address] [place] Chloride [Moles/Vol] 100 mmol/L Normal 98-107 [facility] Comment on above: Order Comment: Speci men Type: BLOOD SPECIMENOrdering Facility: [facility] Address: [address] [place] [address] Performed By: #### 2 4323-8 ####[facility] LABCLIA [id number] [place] [address] [place] CO2 [Moles/Vol] 27 mmol/L Normal 22-30 [facility] Comment on above: Order Comment: Speci men Type: BLOOD SPECIMENOrdering Facility: [facility] Address: [address] [place] [address] Performed By: #### 2 4323-8 ####[facility] LABCLIA [id number] [place] [address] [place] Creatinine [Mass/Vol] 1.02 mg/dL Normal 0.73-1.22 [facility] Comment on above: Order Comment: Speci men Type: BLOOD SPECIMENOrdering Facility: [facility] Address: [address] [place] [address] Performed By: #### 2 4323-8 ####[facility] LABIA [id number] [place] [address] [place] Creatinine and Glomerular filtration rate.predicted panel (S/P/Bld) 81 mL/min/1.73m??? Normal >=60 [facility] Comment on above: Order Comment: Speci men Type: BLOOD SPECIMENOrdering Facility: [facility] Address: [address] [place] [address] Result Comment: Talisha mated Glomerular Filtration Rate [...] actual GFR. Performed By: #### 2 4323-8 ####[facility] LABIA [id number] [place] [id number] [place] Glucose [Mass/Vol] 119 mg/dL High 74-99 [facility] Comment on above: Order Comment: Speci men Type: BLOOD SPECIMENOrdering Facility: [facility] Address: [address] [place] [address] Result Comment: The [place] [employer] (ADA) provides guidance for cutoff [...] Standards of Medical Care in Diabetes 2016, [place] [employer]. Diabetes Care. 2016.39(Suppl 1). Performed By: #### 2 4323-8 ####[facility] LABCLIA [id number] [place] [address] [place] Protein [Mass/Vol] 6.4 g/dL Normal 6.3-8.0 [facility] Comment on above: Order Comment: Speci men Type: BLOOD SPECIMENOrdering Facility: [facility] Address: [address] [place] [address] Performed By: #### 2 4323-8 ####[facility] LABIA [id number] [place] [address] [place] Urea nitrogen [Mass/Vol] 35 mg/dL High 9-24 [facility] Comment on above: Order Comment: Tatyanai brinda Type: BLOOD SPECIMENOrdering Facility: [facility] Address: [address] [place] [address] Performed By: #### 2 4323-8 ####[facility] LABIA [id number] [place] [address] [place] Gas + CO Pnl BldVon 01-26-20 24 Hemoglobin (Bld) [Mass/Vol] 10.0 g/dL Low 13.0-17.0 [facility] Comment on above: Order Comment: Speci men Type: VENOUS BLOOD SPECIMENOrdering Facility: [facility] Address: [address] [place] [address] Performed By: #### 2 4344-4 ####[facility] LABCLIA [id number] [place] [address] [place] Order Comment: Speci men Type: BLOOD SPECIMENOrdering Facility: [facility] Address: [address] [place] [address] Performed By: #### 5 8410-2 ####[facility] [id number] [place] [address] [place] Gas and Carbon monoxide pane l (BldV)on 01-26-2024 Base excess Calc (BldV) [Moles/Vol] 4 mmol/L High 0-2 [facility] Comment on above: Order Comment: Speci men Type: VENOUS BLOOD SPECIMENOrdering Facility: [facility] Address: [address] [place] [address] Performed By: #### 2 4344-4 ####[facility] [id number] [place] [address] [place] Calcium.ionized (Bld) [Mass/Vol] 1.16 mmol/L Normal 1.08-1.30 [facility] Comment on above: Order Comment: Speci men Type: VENOUS BLOOD SPECIMENOrdering Facility: [facility] Address: [address] [place] [address] Performed By: #### 2 4344-4 ####[facility] [id number] [place] [address] [place] Calcium.ionized adjusted to pH 7.4 (BldA) [Moles/Vol] 1.13 mmol/L Normal 1.08-1.30 [facility] Comment on above: Order Comment: Speci men Type: VENOUS BLOOD SPECIMENOrdering Facility: [facility] Address: [address] [place] [address] Performed By: #### 2 4344-4 ####[facility] [id number] [place] [address] [place] Carboxyhemoglobin (BldV) [Mass fraction] 1.6 % Normal 0.0-2.0 [facility] Comment on above: Order Comment: Speci men Type: VENOUS BLOOD SPECIMENOrdering Facility: [facility] Address: [address] [place] [address] Result Comment: Carb oxyhemoglobin Reference Range for Smokers: 2.0-8.0% Performed By: #### 2 4344-4 ####[facility] LABCLIA [id number] [place] [address] [place] CO2 (BldV) [Partial pressure] 55 mm[Hg] Normal 42-55 [facility] Comment on above: Order Comment: Speci men Type: VENOUS BLOOD SPECIMENOrdering Facility: [facility] Address: [address] [place] [address] Performed By: #### 2 4344-4 ####[facility] LABCLIA [id number] [place] [address] [place] Glucose [Mass/Vol] 116 mg/dL High 60-105 [facility] Comment on above: Order Comment: Speci men Type: VENOUS BLOOD SPECIMENOrdering Facility: [facility] Address: [address] [place] [address] Performed By: #### 2 4344-4 ####[facility] LABCLIA [id number] [place] [address] [place] HCO3 (Bld) [Moles/Vol] 30 mmol/L High 24-28 [facility] Comment on above: Order Comment: Speci men Type: VENOUS BLOOD SPECIMENOrdering Facility: [facility] Address: [address] [place] [address] Performed By: #### 2 4344-4 ####[facility] LABCLIA [id number] [place] [address] [place] Hematocrit (Bld) [Volume fraction] 29.8 % Low 39.0-51.0 [facility] Comment on above: Order Comment: Speci men Type: VENOUS BLOOD SPECIMENOrdering Facility: [facility] Address: [address] [place] [address] Performed By: #### 2 4344-4 ####[facility] LABCLIA [id number] [address] [address] [place] Hemoglobin (Bld) [Mass/Vol] 9.6 g/dL Low 13.0-17.0 [facility] Comment on above: Order Comment: Speci men Type: VENOUS BLOOD SPECIMENOrdering Facility: [facility] Address: [address] [place] [address] Performed By: #### 2 4344-4 ####[facility] LABCLIA [id number] [place] [address] [place] Oxygen (BldV) [Partial pressure] 44 mm[Hg] Normal 35-45 [facility] Comment on above: Order Comment: Speci men Type: VENOUS BLOOD SPECIMENOrdering Facility: [facility] Address: [address] [place] [address] Performed By: #### 2 4344-4 ####[facility] LABCLIA [id number] [place] [address] [place] Oxygen saturation in Venous blood 75 % Normal 60-85 [facility] Comment on above: Order Comment: Speci men Type: VENOUS BLOOD SPECIMENOrdering Facility: [facility] Address: [address] [place] [address] Performed By: #### 2 4344-4 ####[facility] LABCLIA [id number] [place] [address] [place] Oxyhemoglobin (BldV) [Mass fraction] 73 % Normal 60-85 [facility] Comment on above: Order Comment: Speci men Type: VENOUS BLOOD SPECIMENOrdering Facility: [facility] Address: [address] [place], [place] [address] Performed By: #### 2 4344-4 ####[facility] LABCLIA [id number] [address] [address] [place] pH (BldV) 7.35 [pH] Normal 7.32-7.42 [facility] Comment on above: Order Comment: Speci men Type: VENOUS BLOOD SPECIMENOrdering Facility: [facility] Address: [address] [place] [id number] Performed By: #### 2 4344-4 ####[facility] LABCLIA [id number] [place] [id number] [place] Potassium [Moles/Vol] 4.2 mmol/L Normal 3.5-5.0 [facility] Comment on above: Order Comment: Speci men Type: VENOUS BLOOD SPECIMENOrdering Facility: [facility] Address: [address] [place] [address] Performed By: #### 2 4344-4 ####[facility] LABCLIA [id number] [place] [address] [place] Sodium [Moles/Vol] 138 mmol/L Normal 136-144 [facility] Comment on above: Order Comment: Speci men Type: VENOUS BLOOD SPECIMENOrdering Facility: [facility] Address: [address] [place] [address] Performed By: #### 2 4344-4 ####[facility] LABCLIA [id number] [place] [address] [place] Base excess Calc (BldV) [Moles/Vol] 5 mmol/L High 0-2 [facility] Comment on above: Order Comment: Speci men Type: VENOUS BLOOD SPECIMENOrdering Facility: [facility] Address: [address] [place], [place] [address] Performed By: #### 2 4344-4 ####[facility] LABIA [id number] [place] [address] [place] Calcium.ionized (Bld) [Mass/Vol] 1.19 mmol/L Normal 1.08-1.30 [facility] Comment on above: Order Comment: Speci men Type: VENOUS BLOOD SPECIMENOrdering Facility: [facility] Address: [address] [place], [place] [address] Performed By: #### 2 4344-4 ####[facility] LABIA [id number] [place] [address] [place] Calcium.ionized adjusted to pH 7.4 (BldA) [Moles/Vol] 1.17 mmol/L Normal 1.08-1.30 [facility] Comment on above: Order Comment: Speci men Type: VENOUS BLOOD SPECIMENOrdering Facility: [facility] Address: [address] [place] [address] Performed By: #### 2 4344-4 ####[facility] LABIA [id number] [place] [address] [place] Carboxyhemoglobin (BldV) [Mass fraction] 1.7 % Normal 0.0-2.0 [facility] Comment on above: Order Comment: Speci men Type: VENOUS BLOOD SPECIMENOrdering Facility: [facility] Address: [address] [place] [address] Result Comment: Carb oxyhemoglobin Reference Range for Smokers: 2.0-8.0% Performed By: #### 2 4344-4 ####[facility] LABIA [id number] [place] [address] [place] CO2 (BldV) [Partial pressure] 55 mm[Hg] Normal 42-55 [facility] Comment on above: Order Comment: Speci men Type: VENOUS BLOOD SPECIMENOrdering Facility: [facility] Address: [address] [place] [address] Performed By: #### 2 4344-4 ####[facility] LABIA [id number] [place] [address] [place] Glucose [Mass/Vol] 123 mg/dL High 60-105 [facility] Comment on above: Order Comment: Speci men Type: VENOUS BLOOD SPECIMENOrdering Facility: [facility] Address: [address] [place] [address] Performed By: #### 2 4344-4 ####[facility] LABCLIA [id number] [place] [address] [place] HCO3 (Bld) [Moles/Vol] 31 mmol/L High 24-28 [facility] Comment on above: Order Comment: Speci men Type: VENOUS BLOOD SPECIMENOrdering Facility: [facility] Address: [address] [place] [address] Performed By: #### 2 4344-4 ####[facility] LABIA [id number] [place] [address] [place] Hematocrit (Bld) [Volume fraction] 31.0 % Low 39.0-51.0 [facility] Comment on above: Order Comment: Speci men Type: VENOUS BLOOD SPECIMENOrdering Facility: [facility] Address: [address] [place] [address] Performed By: #### 2 4344-4 ####[facility] LABIA [id number] [place] [address] [place] Lactate [Moles/Vol] 1.0 mmol/L Normal 0.5-2.2 [facility] Comment on above: Order Comment: Speci men Type: VENOUS BLOOD SPECIMENOrdering Facility: [facility] Address: [address] [place] [address] Performed By: #### 2 4344-4 ####[facility] LABIA [id number] [place] [address] [place] Methemoglobin (Bld) [Mass fraction] 0.7 % Normal 0.0-1.5 [facility] Comment on above: Order Comment: Speci men Type: VENOUS BLOOD SPECIMENOrdering Facility: [facility] Address: [address] [place] [address] Performed By: #### 2 4344-4 ####[facility] LABCLIA [id number] [place] [address] [place] Oxygen (BldV) [Partial pressure] 44 mm[Hg] Normal 35-45 [facility] Comment on above: Order Comment: Speci men Type: VENOUS BLOOD SPECIMENOrdering Facility: [facility] Address: [address] [place], [place] [address] Performed By: #### 2 4344-4 ####[facility] LABCLIA [id number] [address] [address] [place] Oxygen saturation in Venous blood 76 % Normal 60-85 [facility] Comment on above: Order Comment: Speci men Type: VENOUS BLOOD SPECIMENOrdering Facility: [facility] Address: [address] [place] [address] Performed By: #### 2 4344-4 ####[facility] LABCLIA [id number] [place] [address] [place] Oxyhemoglobin (BldV) [Mass fraction] 74 % Normal 60-85 [facility] Comment on above: Order Comment: Speci men Type: VENOUS BLOOD SPECIMENOrdering Facility: [facility] Address: [address] [place] [address] Performed By: #### 2 4344-4 ####[facility] LABCLIA [id number] [place] [address] [place] pH (BldV) 7.37 [pH] Normal 7.32-7.42 [facility] Comment on above: Order Comment: Speci men Type: VENOUS BLOOD SPECIMENOrdering Facility: [facility] Address: [address] [place] [address] Performed By: #### 2 4344-4 ####[facility] LABCLIA [id number] [place] [id number] [place] Sodium [Moles/Vol] 139 mmol/L Normal 136-144 [facility] Comment on above: Order Comment: Speci men Type: VENOUS BLOOD SPECIMENOrdering Facility: [facility] Address: [address] [place], [place] [address] Performed By: #### 2 4344-4 ####[facility] LABCLIA [id number] [place] [address] [place] THERAPY NTon 01-26-2024 THERAPY NT Normal [facility] THERAPY NT Normal [facility] XR CHEST 1V FRONTAL PORTon 1 XR CHEST 1V FRONTAL PORT Normal [facility] ARTERIAL BLOOD GASESon 01-24 Base excess Calc (Bld) [Moles/Vol] 5 mmol/L High 0-2 [facility] Comment on above: Order Comment: Speci men Type: ARTERIAL BLOOD SPECIMENOrdering Facility: [facility] Address: [address] [place] [address] Performed By: #### A LLBG ####[facility] LABCLIA [id number] [place] [address] [place] Body temperature 98.6 [degF] Normal [facility] Comment on above: Order Comment: Speci men Type: ARTERIAL BLOOD SPECIMENOrdering Facility: [facility] Address: [address] [place] [address] Performed By: #### A LLBG ####[facility] LABCLIA [id number] [place] [address] [place] Order Comment: Speci men Type: VENOUS BLOOD SPECIMENOrdering Facility: [facility] Address: [address] [place] [address] Performed By: #### 2 4344-4 ####[facility] LABCLIA [id number] [place] [address] [place] Calcium.ionized (Bld) [Mass/Vol] 1.18 mmol/L Normal 1.08-1.30 [facility] Comment on above: Order Comment: Speci men Type: ARTERIAL BLOOD SPECIMENOrdering Facility: [facility] Address: [address] [place] [address] Performed By: #### A LLBG ####[facility] LABCLIA [id number] [place] [address] [place] Order Comment: Speci men Type: VENOUS BLOOD SPECIMENOrdering Facility: [facility] Address: [address] [place] [address] Performed By: #### 2 4344-4 ####[facility] LABCLIA [id number] [place] [address] [place] Calcium.ionized adjusted to pH 7.4 (BldA) [Moles/Vol] 1.19 mmol/L Normal 1.08-1.30 [facility] Comment on above: Order Comment: Speci men Type: ARTERIAL BLOOD SPECIMENOrdering Facility: [facility] Address: [address] [place] [address] Performed By: #### A LLBG ####[facility] LABIA [id number] [place] [address] [place] Carboxyhemoglobin (BldA) [Mass fraction] 1.7 % Normal 0.0-2.0 [facility] Comment on above: Order Comment: Speci men Type: ARTERIAL BLOOD SPECIMENOrdering Facility: [facility] Address: [address] [place] [address] Result Comment: Carb oxyhemoglobin Reference Range for Smokers: 2.0-8.0% Performed By: #### A LLBG ####[facility] LABIA [id number] [place] [address] [place] CO2 (Bld) [Partial pressure] 46 mm Hg Normal 36-46 [facility] Comment on above: Order Comment: Speci men Type: ARTERIAL BLOOD SPECIMENOrdering Facility: [facility] Address: [address] [place] [address] Performed By: #### A LLBG ####[facility] LABCLIA [id number] [place] [address] [place] Glucose [Mass/Vol] 125 mg/dL High 60-105 [facility] Comment on above: Order Comment: Speci men Type: ARTERIAL BLOOD SPECIMENOrdering Facility: [facility] Address: [address] [place] [address] Performed By: #### A LLBG ####[facility] LABCLIA [id number] [place] [address] [place] HCO3 (Bld) [Moles/Vol] 30 mmol/L High 22-26 [facility] Comment on above: Order Comment: Speci men Type: ARTERIAL BLOOD SPECIMENOrdering Facility: [facility] Address: [address] [place] [address] Performed By: #### A LLBG ####[facility] LABCLIA [id number] [place] [address] [place] Hematocrit (Bld) [Volume fraction] 32.3 % Low 39.0-51.0 [facility] Comment on above: Order Comment: Speci men Type: ARTERIAL BLOOD SPECIMENOrdering Facility: [facility] Address: [address] [place] [address] Performed By: #### A LLBG ####[facility] LABIA [id number] [place] [address] [place] Hemoglobin (Bld) [Mass/Vol] 10.5 g/dL Low 13.0-17.0 [facility] Comment on above: Order Comment: Speci men Type: ARTERIAL BLOOD SPECIMENOrdering Facility: [facility] Address: [address] [place] [address] Performed By: #### A LLBG ####[facility] LABCLIA [id number] [place] [address] [place] Lactate [Moles/Vol] 1.3 mmol/L Normal 0.5-2.2 [facility] Comment on above: Order Comment: Speci men Type: ARTERIAL BLOOD SPECIMENOrdering Facility: [facility] Address: [address] [place] [address] Performed By: #### A LLBG ####[facility] LABCLIA [id number] [place] [address] [place] LITERS 4 Liters/min Normal [facility] Comment on above: Order Comment: Speci men Type: ARTERIAL BLOOD SPECIMENOrdering Facility: [facility] Address: [address] [place] [address] Performed By: #### A LLBG ####[facility] LABCLIA [id number] [place] [address] [place] Methemoglobin (Bld) [Mass fraction] 0.7 % Normal 0.0-1.5 [facility] Comment on above: Order Comment: Speci men Type: ARTERIAL BLOOD SPECIMENOrdering Facility: [facility] Address: [address] [place] [address] Performed By: #### A LLBG ####[facility] LABCLIA [id number] [place] [address] [place] O2 THERAPY Positive Normal [facility] Comment on above: Order Comment: Speci men Type: ARTERIAL BLOOD SPECIMENOrdering Facility: [facility] Address: [address] [place] [address] Performed By: #### A LLBG ####[facility] LABCLIA [id number] [place] [address] [place] Order Comment: Speci men Type: VENOUS BLOOD SPECIMENOrdering Facility: [facility] Address: [address] [place] [address] Performed By: #### 2 4344-4 ####[facility] LABCLIA [id number] [place] [address] [place] Oxygen (Bld) [Partial pressure] 109 mm Hg High 85-95 [facility] Comment on above: Order Comment: Speci men Type: ARTERIAL BLOOD SPECIMENOrdering Facility: [facility] Address: [address] [place] [address] Performed By: #### A LLBG ####[facility] LABCLIA [id number] [place] [id number] [address] [place] Oxyhemoglobin (BldA) [Mass fraction] 96 % Normal 95-98 [facility] Comment on above: Order Comment: Speci men Type: ARTERIAL BLOOD SPECIMENOrdering Facility: [facility] Address: [address] [place] [address] Performed By: #### A LLBG ####[facility] LABCLIA [id number] [place] [address] [place] pH (Bld) 7.42 [pH] Normal 7.35-7.45 [facility] Comment on above: Order Comment: Speci men Type: ARTERIAL BLOOD SPECIMENOrdering Facility: [facility] Address: [address] [place] [address] Performed By: #### A LLBG ####[facility] LABCLIA [id number] [place] [address] [place] Potassium [Moles/Vol] 4.6 mmol/L Normal 3.5-5.0 [facility] Comment on above: Order Comment: Speci men Type: ARTERIAL BLOOD SPECIMENOrdering Facility: [facility] Address: [address] [place] [address] Performed By: #### A LLBG ####[facility] LABCLIA [id number] [place] [address] [place] Sodium [Moles/Vol] 139 mmol/L Normal 136-144 [facility] Comment on above: Order Comment: Speci men Type: ARTERIAL BLOOD SPECIMENOrdering Facility: [facility] Address: [address] [place] [address] Performed By: #### A LLBG ####[facility] LABCLIA [id number] [place] [address] [place] Order Comment: Speci men Type: VENOUS BLOOD SPECIMENOrdering Facility: [facility] Address: [address] [place] [address] Performed By: #### 2 4344-4 ####[facility] LABCLIA [id number] [place] [address] [place] Base excess Calc (Bld) [Moles/Vol] 5 mmol/L High 0-2 [facility] Comment on above: Order Comment: Speci men Type: ARTERIAL BLOOD SPECIMENOrdering Facility: [facility] Address: [address] [place] [address] Performed By: #### A LLBG ####[facility] [id number] [place] [address] [place] Calcium.ionized adjusted to pH 7.4 (BldA) [Moles/Vol] 1.18 mmol/L Normal 1.08-1.30 [facility] Comment on above: Order Comment: Speci men Type: ARTERIAL BLOOD SPECIMENOrdering Facility: [facility] Address: [address] [place] [address] Performed By: #### A LLBG ####[facility] [id number] [place] [address] [place] Carboxyhemoglobin (BldA) [Mass fraction] 1.1 % Normal 0.0-2.0 [facility] Comment on above: Order Comment: Speci men Type: ARTERIAL BLOOD SPECIMENOrdering Facility: [facility] Address: [address] [place] [address] Result Comment: Carb oxyhemoglobin Reference Range for Smokers: 2.0-8.0% Performed By: #### A LLBG ####[facility] LABIA [id number] [place] [address] [place] CO2 (Bld) [Partial pressure] 46 mm Hg Normal 36-46 [facility] Comment on above: Order Comment: Speci men Type: ARTERIAL BLOOD SPECIMENOrdering Facility: [facility] Address: [address] [place] [address] Performed By: #### A LLBG ####[facility] LABIA [id number] [place] [address] [place] Glucose [Mass/Vol] 132 mg/dL High 60-105 [facility] Comment on above: Order Comment: Speci men Type: ARTERIAL BLOOD SPECIMENOrdering Facility: [facility] Address: [address] [place] [address] Performed By: #### A LLBG ####[facility] LABCLIA [id number] [place] [address] [place] HCO3 (Bld) [Moles/Vol] 29 mmol/L High 22-26 [facility] Comment on above: Order Comment: Speci men Type: ARTERIAL BLOOD SPECIMENOrdering Facility: [facility] Address: [address] [place] [address] Performed By: #### A LLBG ####[facility] LABCLIA [id number] [place] [address] [place] Hematocrit (Bld) [Volume fraction] 33.5 % Low 39.0-51.0 [facility] Comment on above: Order Comment: Speci men Type: ARTERIAL BLOOD SPECIMENOrdering Facility: [facility] Address: [address] [place] [address] Performed By: #### A LLBG ####[facility] LABCLIA [id number] [place] [address] [place] Hemoglobin (Bld) [Mass/Vol] 10.8 g/dL Low 13.0-17.0 [facility] Comment on above: Order Comment: Speci men Type: ARTERIAL BLOOD SPECIMENOrdering Facility: [facility] Address: [address] [place] [address] Performed By: #### A LLBG ####[facility] LABCLIA [id number] [place] [address] [place] Lactate [Moles/Vol] 1.2 mmol/L Normal 0.5-2.2 [facility] Comment on above: Order Comment: Speci men Type: ARTERIAL BLOOD SPECIMENOrdering Facility: [facility] Address: [address] [place] [address] Performed By: #### A LLBG ####[facility] LABIA [id number] [place] [address] [place] Methemoglobin (Bld) [Mass fraction] 0.9 % Normal 0.0-1.5 [facility] Comment on above: Order Comment: Speci men Type: ARTERIAL BLOOD SPECIMENOrdering Facility: [facility] Address: [address] [place] [address] Performed By: #### A LLBG ####[facility] LABIA [id number] [place] [address] [place] Oxygen (Bld) [Partial pressure] 142 mm Hg High 85-95 [facility] Comment on above: Order Comment: Speci men Type: ARTERIAL BLOOD SPECIMENOrdering Facility: [facility] Address: [address] [place] [address] Performed By: #### A LLBG ####[facility] LABIA [id number] [place] [address] [place] Oxyhemoglobin (BldA) [Mass fraction] 97 % Normal 95-98 [facility] Comment on above: Order Comment: Speci men Type: ARTERIAL BLOOD SPECIMENOrdering Facility: [facility] Address: [address] [place] [address] Performed By: #### A LLBG ####[facility] LABIA [id number] [place] [id number] [place] pH (Bld) 7.42 [pH] Normal 7.35-7.45 [facility] Comment on above: Order Comment: Speci men Type: ARTERIAL BLOOD SPECIMENOrdering Facility: [facility] Address: [address] [place] [address] Performed By: #### A LLBG ####[facility] LABIA [id number] [place] [id number] [place] Potassium [Moles/Vol] 4.4 mmol/L Normal 3.5-5.0 [facility] Comment on above: Order Comment: Speci men Type: ARTERIAL BLOOD SPECIMENOrdering Facility: [facility] Address: [address] [place] [address] Performed By: #### A LLBG ####[facility] LABCLIA [id number] [place] [address] [place] Base excess Calc (Bld) [Moles/Vol] 4 mmol/L High 0-2 [facility] Comment on above: Order Comment: Speci men Type: ARTERIAL BLOOD SPECIMENOrdering Facility: [facility] Address: [address] [place] [address] Performed By: #### A LLBG ####[facility] LABCLIA [id number] [place] [address] [place] Body temperature 98.6 [degF] Normal [facility] Comment on above: Order Comment: Speci men Type: ARTERIAL BLOOD SPECIMENOrdering Facility: [facility] Address: [address] [place] [address] Performed By: #### A LLBG ####[facility] LABCLIA [id number] [place] [address] [place] Order Comment: Speci men Type: VENOUS BLOOD SPECIMENOrdering Facility: [facility] Address: [address] [place] [address] Performed By: #### 2 4344-4 ####[facility] LABCLIA [id number] [place] [address] [place] Calcium.ionized (Bld) [Mass/Vol] 1.21 mmol/L Normal 1.08-1.30 [facility] Comment on above: Order Comment: Speci men Type: ARTERIAL BLOOD SPECIMENOrdering Facility: [facility] Address: [address] [place] [address] Performed By: #### A LLBG ####[facility] LABIA [id number] [place] [address] [place] Calcium.ionized adjusted to pH 7.4 (BldA) [Moles/Vol] 1.21 mmol/L Normal 1.08-1.30 [facility] Comment on above: Order Comment: Speci men Type: ARTERIAL BLOOD SPECIMENOrdering Facility: [facility] Address: [address] [place] [address] Performed By: #### A LLBG ####[facility] [id number] [place] [address] [place] Carboxyhemoglobin (BldA) [Mass fraction] 1.5 % Normal 0.0-2.0 [facility] Comment on above: Order Comment: Speci men Type: ARTERIAL BLOOD SPECIMENOrdering Facility: [facility] Address: [address] [place] [address] Result Comment: Carb oxyhemoglobin Reference Range for Smokers: 2.0-8.0% Performed By: #### A LLBG ####[facility] [id number] [place] [address] [place] CO2 (Bld) [Partial pressure] 48 mm Hg High 36-46 [facility] Comment on above: Order Comment: Speci men Type: ARTERIAL BLOOD SPECIMENOrdering Facility: [facility] Address: [address] [place] [address] Performed By: #### A LLBG ####[facility] LABIA [id number] [place] [address] [place] Glucose [Mass/Vol] 129 mg/dL High 60-105 [facility] Comment on above: Order Comment: Speci men Type: ARTERIAL BLOOD SPECIMENOrdering Facility: [facility] Address: [address] [place] [address] Performed By: #### A LLBG ####[facility] [id number] [place] [address] [place] HCO3 (Bld) [Moles/Vol] 29 mmol/L High 22-26 [facility] Comment on above: Order Comment: Speci men Type: ARTERIAL BLOOD SPECIMENOrdering Facility: [facility] Address: [address] [place] [address] Performed By: #### A LLBG ####[facility] LABCLIA [id number] [place] [address] [place] Hematocrit (Bld) [Volume fraction] 32.4 % Low 39.0-51.0 [facility] Comment on above: Order Comment: Speci men Type: ARTERIAL BLOOD SPECIMENOrdering Facility: [facility] Address: [address] [place] [address] Performed By: #### A LLBG ####[facility] LABCLIA [id number] [place] [address] [place] Hemoglobin (Bld) [Mass/Vol] 10.5 g/dL Low 13.0-17.0 [facility] Comment on above: Order Comment: Speci men Type: ARTERIAL BLOOD SPECIMENOrdering Facility: [facility] Address: [address] [place] [address] Performed By: #### A LLBG ####[facility] LABCLIA [id number] [place] [address] [place] Lactate [Moles/Vol] 1.2 mmol/L Normal 0.5-2.2 [facility] Comment on above: Order Comment: Speci men Type: ARTERIAL BLOOD SPECIMENOrdering Facility: [facility] Address: [address] [place] [address] Performed By: #### A LLBG ####[facility] LABCLIA [id number] [place] [address] [place] Order Comment: Speci men Type: VENOUS BLOOD SPECIMENOrdering Facility: [facility] Address: [address] [place] [address] Performed By: #### 2 4344-4 ####[facility] LABCLIA [id number] [address] [address] [place] LITERS 3 Liters/min Normal [facility] Comment on above: Order Comment: Speci men Type: ARTERIAL BLOOD SPECIMENOrdering Facility: [facility] Address: [address] [place] [id number] Performed By: #### A LLBG ####[facility] LABCLIA [id number] [place] [id number] [place] Order Comment: Speci men Type: VENOUS BLOOD SPECIMENOrdering Facility: [facility] Address: [address] [place] [id number] Performed By: #### 2 4344-4 ####[facility] LABCLIA [id number] [place] [id number] [place] Methemoglobin (Bld) [Mass fraction] 0.9 % Normal 0.0-1.5 [facility] Comment on above: Order Comment: Speci men Type: ARTERIAL BLOOD SPECIMENOrdering Facility: [facility] Address: [address] [place] [id number] Performed By: #### A LLBG ####[facility] LABCLIA [id number] [place] [id number] [place] O2 THERAPY Positive Normal [facility] Comment on above: Order Comment: Speci men Type: ARTERIAL BLOOD SPECIMENOrdering Facility: [facility] Address: [address] [place] [id number] Performed By: #### A LLBG ####[facility] LABCLIA [id number] [place] [id number] [place] Order Comment: Speci men Type: VENOUS BLOOD SPECIMENOrdering Facility: [facility] Address: [address] [place] [id number] Performed By: #### 2 4344-4 ####[facility] LABCLIA [id number] [place] [address] [place] Oxygen (Bld) [Partial pressure] 96 mm Hg High 85-95 [facility] Comment on above: Order Comment: Speci men Type: ARTERIAL BLOOD SPECIMENOrdering Facility: [facility] Address: [address] [place] [address] Performed By: #### A LLBG ####[facility] LABCLIA [id number] [place] [address] [place] Oxyhemoglobin (BldA) [Mass fraction] 96 % Normal 95-98 [facility] Comment on above: Order Comment: Speci men Type: ARTERIAL BLOOD SPECIMENOrdering Facility: [facility] Address: [address] [place] [address] Performed By: #### A LLBG ####[facility] LABIA [id number] [place] [address] [place] pH (Bld) 7.40 [pH] Normal 7.35-7.45 [facility] Comment on above: Order Comment: Speci men Type: ARTERIAL BLOOD SPECIMENOrdering Facility: [facility] Address: [address] [place] [address] Performed By: #### A LLBG ####[facility] LABCLIA [id number] [place] [address] [place] Potassium [Moles/Vol] 4.5 mmol/L Normal 3.5-5.0 [facility] Comment on above: Order Comment: Speci men Type: ARTERIAL BLOOD SPECIMENOrdering Facility: [facility] Address: [address] [place] [address] Performed By: #### A LLBG ####[facility] LABCLIA [id number] [place] [address] [place] Sodium [Moles/Vol] 139 mmol/L Normal 136-144 [facility] Comment on above: Order Comment: Speci men Type: ARTERIAL BLOOD SPECIMENOrdering Facility: [facility] Address: [address] [place] [address] Performed By: #### A LLBG ####[facility] LABCLIA [id number] [place] [address] [place] Base excess Calc (Bld) [Moles/Vol] 4 mmol/L High 0-2 [facility] Comment on above: Order Comment: Speci men Type: ARTERIAL BLOOD SPECIMENOrdering Facility: [facility] Address: [address] [place] [address] Performed By: #### A LLBG ####[facility] LABIA [id number] [place] [address] [place] Body temperature 98.6 [degF] Normal [facility] Comment on above: Order Comment: Speci men Type: ARTERIAL BLOOD SPECIMENOrdering Facility: [facility] Address: [address] [place] [address] Performed By: #### A LLBG ####[facility] LABCLIA [id number] [place] [address] [place] Calcium.ionized (Bld) [Mass/Vol] 1.20 mmol/L Normal 1.08-1.30 [facility] Comment on above: Order Comment: Speci men Type: ARTERIAL BLOOD SPECIMENOrdering Facility: [facility] Address: [address] [place] [address] Performed By: #### A LLBG ####[facility] LABCLIA [id number] [place] [address] [place] Calcium.ionized adjusted to pH 7.4 (BldA) [Moles/Vol] 1.21 mmol/L Normal 1.08-1.30 [facility] Comment on above: Order Comment: Speci men Type: ARTERIAL BLOOD SPECIMENOrdering Facility: [facility] Address: [address] [place] [address] Performed By: #### A LLBG ####[facility] LABCLIA [id number] [place] [address] [place] Carboxyhemoglobin (BldA) [Mass fraction] 1.6 % Normal 0.0-2.0 [facility] Comment on above: Order Comment: Speci men Type: ARTERIAL BLOOD SPECIMENOrdering Facility: [facility] Address: [address] [place] [address] Result Comment: Carb oxyhemoglobin Reference Range for Smokers: 2.0-8.0% Performed By: #### A LLBG ####[facility] LABCLIA [id number] [place] [address] [place] CO2 (Bld) [Partial pressure] 45 mm Hg Normal 36-46 [facility] Comment on above: Order Comment: Speci men Type: ARTERIAL BLOOD SPECIMENOrdering Facility: [facility] Address: [address] [place] [address] Performed By: #### A LLBG ####[facility] LABCLIA [id number] [place] [address] [place] Glucose [Mass/Vol] 130 mg/dL High 60-105 [facility] Comment on above: Order Comment: Speci men Type: ARTERIAL BLOOD SPECIMENOrdering Facility: [facility] Address: [address] [place] [address] Performed By: #### A LLBG ####[facility] LABCLIA [id number] [place] [address] [place] HCO3 (Bld) [Moles/Vol] 28 mmol/L High 22-26 [facility] Comment on above: Order Comment: Speci men Type: ARTERIAL BLOOD SPECIMENOrdering Facility: [facility] Address: [address] [place] [address] Performed By: #### A LLBG ####[facility] LABCLIA [id number] [place] [address] [place] Hematocrit (Bld) [Volume fraction] 32.1 % Low 39.0-51.0 [facility] Comment on above: Order Comment: Speci men Type: ARTERIAL BLOOD SPECIMENOrdering Facility: [facility] Address: [address] [place] [address] Performed By: #### A LLBG ####[facility] LABCLIA [id number] [place] [address] [place] Hemoglobin (Bld) [Mass/Vol] 10.4 g/dL Low 13.0-17.0 [facility] Comment on above: Order Comment: Speci men Type: ARTERIAL BLOOD SPECIMENOrdering Facility: [facility] Address: [address] [place] [address] Performed By: #### A LLBG ####[facility] LABCLIA [id number] [place] [address] [place] Lactate [Moles/Vol] 1.4 mmol/L Normal 0.5-2.2 [facility] Comment on above: Order Comment: Speci men Type: ARTERIAL BLOOD SPECIMENOrdering Facility: [facility] Address: [address] [place] [address] Performed By: #### A LLBG ####[facility] LABCLIA [id number] [place] [address] [place] LITERS 3 Liters/min Normal [facility] Comment on above: Order Comment: Speci men Type: ARTERIAL BLOOD SPECIMENOrdering Facility: [facility] Address: [address] [place] [address] Performed By: #### A LLBG ####[facility] LABCLIA [id number] [place] [address] [place] Methemoglobin (Bld) [Mass fraction] 0.9 % Normal 0.0-1.5 [facility] Comment on above: Order Comment: Speci men Type: ARTERIAL BLOOD SPECIMENOrdering Facility: [facility] Address: [address] [place], [place] [id number] Performed By: #### A LLBG ####[facility] LABCLIA [id number] [place] [address] [place] O2 THERAPY NC = Nasal Cannula Normal [facility] Comment on above: Order Comment: Speci men Type: ARTERIAL BLOOD SPECIMENOrdering Facility: [facility] Address: [address] [place] [id number] Performed By: #### A LLBG ####[facility] LABCLIA [id number] [place] [address] [place] Oxygen (Bld) [Partial pressure] 155 mm Hg High 85-95 [facility] Comment on above: Order Comment: Speci men Type: ARTERIAL BLOOD SPECIMENOrdering Facility: [facility] Address: [address] [place] [address] Performed By: #### A LLBG ####[facility] LABIA [id number] [place] [address] [place] Oxyhemoglobin (BldA) [Mass fraction] 97 % Normal 95-98 [facility] Comment on above: Order Comment: Speci men Type: ARTERIAL BLOOD SPECIMENOrdering Facility: [facility] Address: [address] [place] [address] Performed By: #### A LLBG ####[facility] LABCLIA [id number] [place] [address] [place] pH (Bld) 7.41 [pH] Normal 7.35-7.45 [facility] Comment on above: Order Comment: Speci men Type: ARTERIAL BLOOD SPECIMENOrdering Facility: [facility] Address: [address] [place] [address] Performed By: #### A LLBG ####[facility] LABIA [id number] [place] [address] [place] Potassium [Moles/Vol] 4.5 mmol/L Normal 3.5-5.0 [facility] Comment on above: Order Comment: Speci men Type: ARTERIAL BLOOD SPECIMENOrdering Facility: [facility] Address: [address] [place] [address] Performed By: #### A LLBG ####[facility] LABCLIA [id number] [place] [address] [place] Sodium [Moles/Vol] 139 mmol/L Normal 136-144 [facility] Comment on above: Order Comment: Speci men Type: ARTERIAL BLOOD SPECIMENOrdering Facility: [facility] Address: [address] [place] [address] Performed By: #### A LLBG ####[facility] LABCLIA [id number] [place] [address] [place] Base excess Calc (Bld) [Moles/Vol] 3 mmol/L High 0-2 [facility] Comment on above: Order Comment: Speci men Type: ARTERIAL BLOOD SPECIMENOrdering Facility: [facility] Address: [address] [place] [address] Performed By: #### A LLBG ####[facility] LABCLIA [id number] [place] [address] [place] Calcium.ionized (Bld) [Mass/Vol] 1.21 mmol/L Normal 1.08-1.30 [facility] Comment on above: Order Comment: Speci men Type: ARTERIAL BLOOD SPECIMENOrdering Facility: [facility] Address: [address] [place] [address] Performed By: #### A LLBG ####[facility] LABIA [id number] [place] [address] [place] Calcium.ionized adjusted to pH 7.4 (BldA) [Moles/Vol] 1.22 mmol/L Normal 1.08-1.30 [facility] Comment on above: Order Comment: Speci men Type: ARTERIAL BLOOD SPECIMENOrdering Facility: [facility] Address: [address] [place] [address] Performed By: #### A LLBG ####[facility] LABCLIA [id number] [place] [address] [place] Carboxyhemoglobin (BldA) [Mass fraction] 1.8 % Normal 0.0-2.0 [facility] Comment on above: Order Comment: Speci men Type: ARTERIAL BLOOD SPECIMENOrdering Facility: [facility] Address: [address] [place] [address] Result Comment: Carb oxyhemoglobin Reference Range for Smokers: 2.0-8.0% Performed By: #### A LLBG ####[facility] LABCLIA [id number] [place] [address] [place] CO2 (Bld) [Partial pressure] 44 mm Hg Normal 36-46 [facility] Comment on above: Order Comment: Speci men Type: ARTERIAL BLOOD SPECIMENOrdering Facility: [facility] Address: [address] [place] [address] Performed By: #### A LLBG ####[facility] LABCLIA [id number] [place] [address] [place] Glucose [Mass/Vol] 135 mg/dL High 60-105 [facility] Comment on above: Order Comment: Speci men Type: ARTERIAL BLOOD SPECIMENOrdering Facility: [facility] Address: [address] [place] [address] Performed By: #### A LLBG ####[facility] LABCLIA [id number] [place] [address] [place] Hematocrit (Bld) [Volume fraction] 33.3 % Low 39.0-51.0 [facility] Comment on above: Order Comment: Speci men Type: ARTERIAL BLOOD SPECIMENOrdering Facility: [facility] Address: [address] [place] [address] Performed By: #### A LLBG ####[facility] LABCLIA [id number] [place] [address] [place] Hemoglobin (Bld) [Mass/Vol] 10.8 g/dL Low 13.0-17.0 [facility] Comment on above: Order Comment: Speci men Type: ARTERIAL BLOOD SPECIMENOrdering Facility: [facility] Address: [address] [place] [address] Performed By: #### A LLBG ####[facility] LABCLIA [id number] [place] [address] [place] Methemoglobin (Bld) [Mass fraction] 0.9 % Normal 0.0-1.5 [facility] Comment on above: Order Comment: Speci men Type: ARTERIAL BLOOD SPECIMENOrdering Facility: [facility] Address: [address] [place] [address] Performed By: #### A LLBG ####[facility] LABCLIA [id number] [place] [address] [place] Oxygen (Bld) [Partial pressure] 171 mm Hg High 85-95 [facility] Comment on above: Order Comment: Speci men Type: ARTERIAL BLOOD SPECIMENOrdering Facility: [facility] Address: [address] [place] [address] Performed By: #### A LLBG ####[facility] LABCLIA [id number] [place] [address] [place] Oxyhemoglobin (BldA) [Mass fraction] 97 % Normal 95-98 [facility] Comment on above: Order Comment: Speci men Type: ARTERIAL BLOOD SPECIMENOrdering Facility: [facility] Address: [address] [place] [address] Performed By: #### A LLBG ####[facility] LABCLIA [id number] [place] [address] [place] pH (Bld) 7.41 [pH] Normal 7.35-7.45 [facility] Comment on above: Order Comment: Speci men Type: ARTERIAL BLOOD SPECIMENOrdering Facility: [facility] Address: [address] [place] [address] Performed By: #### A LLBG ####[facility] LABCLIA [id number] [place] [address] [place] Potassium [Moles/Vol] 4.5 mmol/L Normal 3.5-5.0 [facility] Comment on above: Order Comment: Speci men Type: ARTERIAL BLOOD SPECIMENOrdering Facility: [facility] Address: [address] [place] [address] Performed By: #### A LLBG ####[facility] LABCLIA [id number] [place] [address] [place] Base excess Calc (Bld) [Moles/Vol] 3 mmol/L High 0-2 [facility] Comment on above: Order Comment: Speci men Type: ARTERIAL BLOOD SPECIMENOrdering Facility: [facility] Address: [address] [place] [address] Performed By: #### A LLBG ####[facility] LABIA [id number] [place] [address] [place] Calcium.ionized (Bld) [Mass/Vol] 1.16 mmol/L Normal 1.08-1.30 [facility] Comment on above: Order Comment: Speci men Type: ARTERIAL BLOOD SPECIMENOrdering Facility: [facility] Address: [address] [place] [address] Performed By: #### A LLBG ####[facility] LABIA [id number] [place] [address] [place] Calcium.ionized adjusted to pH 7.4 (BldA) [Moles/Vol] 1.18 mmol/L Normal 1.08-1.30 [facility] Comment on above: Order Comment: Speci men Type: ARTERIAL BLOOD SPECIMENOrdering Facility: [facility] Address: [address] [place] [address] Performed By: #### A LLBG ####[facility] LABIA [id number] [place] [address] [place] Carboxyhemoglobin (BldA) [Mass fraction] 1.2 % Normal 0.0-2.0 [facility] Comment on above: Order Comment: Speci men Type: ARTERIAL BLOOD SPECIMENOrdering Facility: [facility] Address: [address] [place] [address] Result Comment: Carb oxyhemoglobin Reference Range for Smokers: 2.0-8.0% Performed By: #### A LLBG ####[facility] LABCLIA [id number] [place] [address] [place] CO2 (Bld) [Partial pressure] 41 mm Hg Normal 36-46 [facility] Comment on above: Order Comment: Speci men Type: ARTERIAL BLOOD SPECIMENOrdering Facility: [facility] Address: [address] [place] [address] Performed By: #### A LLBG ####[facility] LABCLIA [id number] [place] [address] [place] Glucose [Mass/Vol] 129 mg/dL High 60-105 [facility] Comment on above: Order Comment: Speci men Type: ARTERIAL BLOOD SPECIMENOrdering Facility: [facility] Address: [address] [place] [address] Performed By: #### A LLBG ####[facility] LABCLIA [id number] [place] [address] [place] HCO3 (Bld) [Moles/Vol] 27 mmol/L High 22-26 [facility] Comment on above: Order Comment: Speci men Type: ARTERIAL BLOOD SPECIMENOrdering Facility: [facility] Address: [address] [place] [address] Performed By: #### A LLBG ####[facility] LABCLIA [id number] [place] [address] [place] Hematocrit (Bld) [Volume fraction] 33.7 % Low 39.0-51.0 [facility] Comment on above: Order Comment: Speci men Type: ARTERIAL BLOOD SPECIMENOrdering Facility: [facility] Address: [address] [place] [address] Performed By: #### A LLBG ####[facility] LABCLIA [id number] [place] [address] [place] Hemoglobin (Bld) [Mass/Vol] 10.9 g/dL Low 13.0-17.0 [facility] Comment on above: Order Comment: Speci men Type: ARTERIAL BLOOD SPECIMENOrdering Facility: [facility] Address: [address] [place] [address] Performed By: #### A LLBG ####[facility] LABCLIA [id number] [place] [address] [place] Methemoglobin (Bld) [Mass fraction] 1.7 % High 0.0-1.5 [facility] Comment on above: Order Comment: Speci men Type: ARTERIAL BLOOD SPECIMENOrdering Facility: [facility] Address: [address] [place] [address] Performed By: #### A LLBG ####[facility] LABCLIA [id number] [place] [address] [place] Oxygen (Bld) [Partial pressure] 116 mm Hg High 85-95 [facility] Comment on above: Order Comment: Speci men Type: ARTERIAL BLOOD SPECIMENOrdering Facility: [facility] Address: [address] [place] [address] Performed By: #### A LLBG ####[facility] LABCLIA [id number] [place] [id number] [place] Oxyhemoglobin (BldA) [Mass fraction] 96 % Normal 95-98 [facility] Comment on above: Order Comment: Speci men Type: ARTERIAL BLOOD SPECIMENOrdering Facility: [facility] Address: [address] [place], [place] [address] Performed By: #### A LLBG ####[facility] LABCLIA [id number] [place] [address] [place] pH (Bld) 7.44 [pH] Normal 7.35-7.45 [facility] Comment on above: Order Comment: Speci men Type: ARTERIAL BLOOD SPECIMENOrdering Facility: [facility] Address: [address] [place] [address] Performed By: #### A LLBG ####[facility] LABCLIA [id number] [place] [address] [place] PO2 / FIO2 RATIO 387 mmHg Normal >300 [facility] Comment on above: Order Comment: Speci men Type: ARTERIAL BLOOD SPECIMENOrdering Facility: [facility] Address: [address] [place] [address] Performed By: #### A LLBG ####[facility] LABCLIA [id number] [place] [address] [place] Potassium [Moles/Vol] 4.2 mmol/L Normal 3.5-5.0 [facility] Comment on above: Order Comment: Speci men Type: ARTERIAL BLOOD SPECIMENOrdering Facility: [facility] Address: [address] [place] [address] Performed By: #### A LLBG ####[facility] LABCLIA [id number] [place] [address] [place] Sodium [Moles/Vol] 138 mmol/L Normal 136-144 [facility] Comment on above: Order Comment: Speci men Type: ARTERIAL BLOOD SPECIMENOrdering Facility: [facility] Address: [address] [place] [address] Performed By: #### A LLBG ####[facility] LABCLIA [id number] [place] [address] [place] Base excess Calc (Bld) [Moles/Vol] 4 mmol/L High 0-2 [facility] Comment on above: Order Comment: Speci men Type: ARTERIAL BLOOD SPECIMENOrdering Facility: [facility] Address: [address] [place] [address] Performed By: #### A LLBG ####[facility] LABCLIA [id number] [place] [address] [place] Body temperature 98.6 [degF] Normal [facility] Comment on above: Order Comment: Speci men Type: ARTERIAL BLOOD SPECIMENOrdering Facility: [facility] Address: [address] [place] [address] Performed By: #### A LLBG ####[facility] LABCLIA [id number] [address] [place] Order Comment: Speci men Type: VENOUS BLOOD SPECIMENOrdering Facility: [facility] Address: [address] [place] [address] Performed By: #### 2 4344-4 ####[facility] LABCLIA [id number] [place] [address] [place] Calcium.ionized (Bld) [Mass/Vol] 1.18 mmol/L Normal 1.08-1.30 [facility] Comment on above: Order Comment: Speci men Type: ARTERIAL BLOOD SPECIMENOrdering Facility: [facility] Address: [address] [place] [address] Performed By: #### A LLBG ####[facility] LABCLIA [id number] [address] [place] Order Comment: Speci men Type: VENOUS BLOOD SPECIMENOrdering Facility: [facility] Address: [address] [place] [address] Performed By: #### 2 4344-4 ####[facility] LABCLIA [id number] [place] [address] [place] Calcium.ionized adjusted to pH 7.4 (BldA) [Moles/Vol] 1.21 mmol/L Normal 1.08-1.30 [facility] Comment on above: Order Comment: Speci men Type: ARTERIAL BLOOD SPECIMENOrdering Facility: [facility] Address: [address] [place] [address] Performed By: #### A LLBG ####[facility] LABCLIA [id number] [place] [address] [place] Carboxyhemoglobin (BldA) [Mass fraction] 1.3 % Normal 0.0-2.0 [facility] Comment on above: Order Comment: Speci men Type: ARTERIAL BLOOD SPECIMENOrdering Facility: [facility] Address: [address] [place] [address] Result Comment: Carb oxyhemoglobin Reference Range for Smokers: 2.0-8.0% Performed By: #### A LLBG ####[facility] LABCLIA [id number] [place] [address] [place] CO2 (Bld) [Partial pressure] 41 mm Hg Normal 36-46 [facility] Comment on above: Order Comment: Speci men Type: ARTERIAL BLOOD SPECIMENOrdering Facility: [facility] Address: [address] [place] [address] Performed By: #### A LLBG ####[facility] LABCLIA [id number] [place] [address] [place] FIO2 30 % Normal [facility] Comment on above: Order Comment: Speci men Type: ARTERIAL BLOOD SPECIMENOrdering Facility: [facility] Address: [address] [place] [address] Performed By: #### A LLBG ####[facility] LABCLIA [id number] [place] [address] [place] Order Comment: Speci men Type: VENOUS BLOOD SPECIMENOrdering Facility: [facility] Address: [address] [place] [address] Performed By: #### 2 4344-4 ####[facility] LABCLIA [id number] [place] [address] [place] Glucose [Mass/Vol] 109 mg/dL High 60-105 [facility] Comment on above: Order Comment: Speci men Type: ARTERIAL BLOOD SPECIMENOrdering Facility: [facility] Address: [address] [place] [address] Performed By: #### A LLBG ####[facility] LABCLIA [id number] [place] [address] [place] HCO3 (Bld) [Moles/Vol] 28 mmol/L High 22-26 [facility] Comment on above: Order Comment: Speci men Type: ARTERIAL BLOOD SPECIMENOrdering Facility: [facility] Address: [address] [place] [address] Performed By: #### A LLBG ####[facility] LABCLIA [id number] [place] [address] [place] Hematocrit (Bld) [Volume fraction] 32.7 % Low 39.0-51.0 [facility] Comment on above: Order Comment: Speci men Type: ARTERIAL BLOOD SPECIMENOrdering Facility: [facility] Address: [address] [place] [address] Performed By: #### A LLBG ####[facility] LABCLIA [id number] [place] [address] [place] Hemoglobin (Bld) [Mass/Vol] 10.6 g/dL Low 13.0-17.0 [facility] Comment on above: Order Comment: Speci men Type: ARTERIAL BLOOD SPECIMENOrdering Facility: [facility] Address: [address] [place] [address] Performed By: #### A LLBG ####[facility] LABCLIA [id number] [place] [address] [place] Lactate [Moles/Vol] 1.2 mmol/L Normal 0.5-2.2 [facility] Comment on above: Order Comment: Speci men Type: ARTERIAL BLOOD SPECIMENOrdering Facility: [facility] Address: [address] [place] [address] Performed By: #### A LLBG ####[facility] LABCLIA [id number] [place] [address] [place] Methemoglobin (Bld) [Mass fraction] 0.8 % Normal 0.0-1.5 [facility] Comment on above: Order Comment: Speci men Type: ARTERIAL BLOOD SPECIMENOrdering Facility: [facility] Address: [address] [place] [address] Performed By: #### A LLBG ####[facility] LABCLIA [id number] [place] [address] [place] Order Comment: Speci men Type: VENOUS BLOOD SPECIMENOrdering Facility: [facility] Address: [address] [place] [address] Performed By: #### 2 4344-4 ####[facility] LABCLIA [id number] [place] [address] [place] O2 THERAPY VENT=Ventilator Normal [facility] Comment on above: Order Comment: Speci men Type: ARTERIAL BLOOD SPECIMENOrdering Facility: [facility] Address: [address] [place] [address] Performed By: #### A LLBG ####[facility] LABCLIA [id number] [place] [address] [place] Order Comment: Speci men Type: VENOUS BLOOD SPECIMENOrdering Facility: [facility] Address: [address] [place] [address] Performed By: #### 2 4344-4 ####[facility] LABCLIA [id number] [place] [address] [place] Oxygen (Bld) [Partial pressure] 127 mm Hg High 85-95 [facility] Comment on above: Order Comment: Speci men Type: ARTERIAL BLOOD SPECIMENOrdering Facility: [facility] Address: [address] [place] [address] Performed By: #### A LLBG ####[facility] LABCLIA [id number] [place] [address] [place] Oxyhemoglobin (BldA) [Mass fraction] 97 % Normal 95-98 [facility] Comment on above: Order Comment: Speci men Type: ARTERIAL BLOOD SPECIMENOrdering Facility: [facility] Address: [address] [place] [address] Performed By: #### A LLBG ####[facility] LABCLIA [id number] [place] [address] [place] pH (Bld) 7.45 [pH] Normal 7.35-7.45 [facility] Comment on above: Order Comment: Speci men Type: ARTERIAL BLOOD SPECIMENOrdering Facility: [facility] Address: [address] [place] [address] Performed By: #### A LLBG ####[facility] LABCLIA [id number] [place] [address] [place] PO2 / FIO2 RATIO 423 mmHg Normal >300 [facility] Comment on above: Order Comment: Speci men Type: ARTERIAL BLOOD SPECIMENOrdering Facility: [facility] Address: [address] [place] [address] Performed By: #### A LLBG ####[facility] LABCLIA [id number] [place] [address] [place] Potassium [Moles/Vol] 4.1 mmol/L Normal 3.5-5.0 [facility] Comment on above: Order Comment: Speci men Type: ARTERIAL BLOOD SPECIMENOrdering Facility: [facility] Address: [address] [place] [address] Performed By: #### A LLBG ####[facility] LABCLIA [id number] [place] [address] [place] Sodium [Moles/Vol] 139 mmol/L Normal 136-144 [facility] Comment on above: Order Comment: Speci men Type: ARTERIAL BLOOD SPECIMENOrdering Facility: [facility] Address: [address] [place] [address] Performed By: #### A LLBG ####[facility] LABCLIA [id number] [place] [address] [place] Base excess Calc (Bld) [Moles/Vol] 3 mmol/L High 0-2 [facility] Comment on above: Order Comment: Speci men Type: ARTERIAL BLOOD SPECIMENOrdering Facility: [facility] Address: [address] [place] [address] Performed By: #### A LLBG ####[facility] LABCLIA [id number] [place] [address] [place] Body temperature 98.6 [degF] Normal [facility] Comment on above: Order Comment: Speci men Type: ARTERIAL BLOOD SPECIMENOrdering Facility: [facility] Address: [address] [place] [address] Performed By: #### A LLBG ####[facility] LABCLIA [id number] [address] [place] Order Comment: Speci men Type: VENOUS BLOOD SPECIMENOrdering Facility: [facility] Address: [address] [place] [address] Performed By: #### 2 4344-4 ####[facility] LABCLIA [id number] [place] [address] [place] Calcium.ionized (Bld) [Mass/Vol] 1.19 mmol/L Normal 1.08-1.30 [facility] Comment on above: Order Comment: Speci men Type: ARTERIAL BLOOD SPECIMENOrdering Facility: [facility] Address: [address] [place] [address] Performed By: #### A LLBG ####[facility] LABCLIA [id number] [place] [address] [place] Order Comment: Speci men Type: VENOUS BLOOD SPECIMENOrdering Facility: [facility] Address: [address] [place] [address] Performed By: #### 2 4344-4 ####[facility] LABIA [id number] [place] [address] [place] Calcium.ionized adjusted to pH 7.4 (BldA) [Moles/Vol] 1.20 mmol/L Normal 1.08-1.30 [facility] Comment on above: Order Comment: Speci men Type: ARTERIAL BLOOD SPECIMENOrdering Facility: [facility] Address: [address] [place] [address] Performed By: #### A LLBG ####[facility] LABIA [id number] [place] [address] [place] Carboxyhemoglobin (BldA) [Mass fraction] 1.4 % Normal 0.0-2.0 [facility] Comment on above: Order Comment: Speci men Type: ARTERIAL BLOOD SPECIMENOrdering Facility: [facility] Address: [address] [place] [address] Result Comment: Carb oxyhemoglobin Reference Range for Smokers: 2.0-8.0% Performed By: #### A LLBG ####[facility] LABIA [id number] [place] [address] [place] CO2 (Bld) [Partial pressure] 43 mm Hg Normal 36-46 [facility] Comment on above: Order Comment: Speci men Type: ARTERIAL BLOOD SPECIMENOrdering Facility: [facility] Address: [address] [place] [address] Performed By: #### A LLBG ####[facility] LABIA [id number] [place] [address] [place] FIO2 30 % Normal [facility] Comment on above: Order Comment: Speci men Type: ARTERIAL BLOOD SPECIMENOrdering Facility: [facility] Address: [address] [place] [address] Performed By: #### A LLBG ####[facility] LABCLIA [id number] [place] [address] [place] Order Comment: Speci men Type: VENOUS BLOOD SPECIMENOrdering Facility: [facility] Address: [address] [place] [address] Performed By: #### 2 4344-4 ####[facility] LABCLIA [id number] [place] [address] [place] Glucose [Mass/Vol] 116 mg/dL High 60-105 [facility] Comment on above: Order Comment: Speci men Type: ARTERIAL BLOOD SPECIMENOrdering Facility: [facility] Address: [address] [place] [address] Performed By: #### A LLBG ####[facility] LABCLIA [id number] [place] [address] [place] HCO3 (Bld) [Moles/Vol] 27 mmol/L High 22-26 [facility] Comment on above: Order Comment: Speci men Type: ARTERIAL BLOOD SPECIMENOrdering Facility: [facility] Address: [address] [place] [address] Performed By: #### A LLBG ####[facility] LABCLIA [id number] [place] [address] [place] Hematocrit (Bld) [Volume fraction] 31.4 % Low 39.0-51.0 [facility] Comment on above: Order Comment: Speci men Type: ARTERIAL BLOOD SPECIMENOrdering Facility: [facility] Address: [address] [place] [address] Performed By: #### A LLBG ####[facility] LABCLIA [id number] [place] [address] [place] Hemoglobin (Bld) [Mass/Vol] 10.1 g/dL Low 13.0-17.0 [facility] Comment on above: Order Comment: Speci men Type: ARTERIAL BLOOD SPECIMENOrdering Facility: [facility] Address: [address] [place] [address] Performed By: #### A LLBG ####[facility] LABCLIA [id number] [place] [address] [place] Lactate [Moles/Vol] 1.4 mmol/L Normal 0.5-2.2 [facility] Comment on above: Order Comment: Speci men Type: ARTERIAL BLOOD SPECIMENOrdering Facility: [facility] Address: [address] [place] [address] Performed By: #### A LLBG ####[facility] LABCLIA [id number] [place] [address] [place] Methemoglobin (Bld) [Mass fraction] 0.7 % Normal 0.0-1.5 [facility] Comment on above: Order Comment: Speci men Type: ARTERIAL BLOOD SPECIMENOrdering Facility: [facility] Address: [address] [place] [address] Performed By: #### A LLBG ####[facility] LABCLIA [id number] [place] [address] [place] O2 THERAPY VENT=Ventilator Normal [facility] Comment on above: Order Comment: Speci men Type: ARTERIAL BLOOD SPECIMENOrdering Facility: [facility] Address: [address] [place] [address] Performed By: #### A LLBG ####[facility] LABCLIA [id number] [place] [address] [place] Order Comment: Speci men Type: VENOUS BLOOD SPECIMENOrdering Facility: [facility] Address: [address] [place] [address] Performed By: #### 2 4344-4 ####[facility] LABCLIA [id number] [place] [address] [place] Oxygen (Bld) [Partial pressure] 136 mm Hg High 85-95 [facility] Comment on above: Order Comment: Speci men Type: ARTERIAL BLOOD SPECIMENOrdering Facility: [facility] Address: [address] [place] [address] Performed By: #### A LLBG ####[facility] LABCLIA [id number] [place] [address] [place] Oxyhemoglobin (BldA) [Mass fraction] 97 % Normal 95-98 [facility] Comment on above: Order Comment: Speci men Type: ARTERIAL BLOOD SPECIMENOrdering Facility: [facility] Address: [address] [place] [address] Performed By: #### A LLBG ####[facility] LABCLIA [id number] [place] [address] [place] PEEP/CPAP 8 cmH2O Normal [facility] Comment on above: Order Comment: Speci men Type: ARTERIAL BLOOD SPECIMENOrdering Facility: [facility] Address: [address] [place] [address] Performed By: #### A LLBG ####[facility] LABCLIA [id number] [place] [address] [place] Order Comment: Speci men Type: VENOUS BLOOD SPECIMENOrdering Facility: [facility] Address: [address] [place] [address] Performed By: #### 2 4344-4 ####[facility] LABCLIA [id number] [place] [address] [place] pH (Bld) 7.41 [pH] Normal 7.35-7.45 [facility] Comment on above: Order Comment: Speci men Type: ARTERIAL BLOOD SPECIMENOrdering Facility: [facility] Address: [address] [place] [address] Performed By: #### A LLBG ####[facility] LABCLIA [id number] [place] [address] [place] PO2 / FIO2 RATIO 453 mmHg Normal >300 [facility] Comment on above: Order Comment: Speci men Type: ARTERIAL BLOOD SPECIMENOrdering Facility: [facility] Address: [address] [place] [address] Performed By: #### A LLBG ####[facility] LABCLIA [id number] [place] [address] [place] Sodium [Moles/Vol] 136 mmol/L Normal 136-144 [facility] Comment on above: Order Comment: Speci men Type: ARTERIAL BLOOD SPECIMENOrdering Facility: [facility] Address: [address] [place] [address] Performed By: #### A LLBG ####[facility] LABCLIA [id number] [place] [address] [place] Base excess Calc (Bld) [Moles/Vol] 2 mmol/L Normal 0-2 [facility] Comment on above: Order Comment: Speci men Type: ARTERIAL BLOOD SPECIMENOrdering Facility: [facility] Address: [address] [place] [address] Performed By: #### A LLBG ####[facility] LABCLIA [id number] [place] [address] [place] Calcium.ionized (Bld) [Mass/Vol] 1.18 mmol/L Normal 1.08-1.30 [facility] Comment on above: Order Comment: Speci men Type: ARTERIAL BLOOD SPECIMENOrdering Facility: [facility] Address: [address] [place] [address] Performed By: #### A LLBG ####[facility] LABCLIA [id number] [place] [address] [place] Carboxyhemoglobin (BldA) [Mass fraction] 1.2 % Normal 0.0-2.0 [facility] Comment on above: Order Comment: Speci men Type: ARTERIAL BLOOD SPECIMENOrdering Facility: [facility] Address: [address] [place] [address] Result Comment: Carb oxyhemoglobin Reference Range for Smokers: 2.0-8.0% Performed By: #### A LLBG ####[facility] LABCLIA [id number] [place] [address] [place] CO2 (Bld) [Partial pressure] 42 mm Hg Normal 36-46 [facility] Comment on above: Order Comment: Speci men Type: ARTERIAL BLOOD SPECIMENOrdering Facility: [facility] Address: [address] [place] [address] Performed By: #### A LLBG ####[facility] LABCLIA [id number] [place] [address] [place] Glucose [Mass/Vol] 115 mg/dL High 60-105 [facility] Comment on above: Order Comment: Speci men Type: ARTERIAL BLOOD SPECIMENOrdering Facility: [facility] Address: [address] [place] [address] Performed By: #### A LLBG ####[facility] LABCLIA [id number] [place] [address] [place] HCO3 (Bld) [Moles/Vol] 26 mmol/L Normal 22-26 [facility] Comment on above: Order Comment: Speci men Type: ARTERIAL BLOOD SPECIMENOrdering Facility: [facility] Address: [address] [place] [address] Performed By: #### A LLBG ####[facility] LABCLIA [id number] [place] [address] [place] Hematocrit (Bld) [Volume fraction] 31.9 % Low 39.0-51.0 [facility] Comment on above: Order Comment: Speci men Type: ARTERIAL BLOOD SPECIMENOrdering Facility: [facility] Address: [address] [place] [address] Performed By: #### A LLBG ####[facility] LABCLIA [id number] [place] [address] [place] Hemoglobin (Bld) [Mass/Vol] 10.3 g/dL Low 13.0-17.0 [facility] Comment on above: Order Comment: Speci men Type: ARTERIAL BLOOD SPECIMENOrdering Facility: [facility] Address: [address] [place] [address] Performed By: #### A LLBG ####[facility] LABCLIA [id number] [place] [address] [place] Methemoglobin (Bld) [Mass fraction] 1.9 % High 0.0-1.5 [facility] Comment on above: Order Comment: Speci men Type: ARTERIAL BLOOD SPECIMENOrdering Facility: [facility] Address: [address] [place] [address] Performed By: #### A LLBG ####[facility] LABCLIA [id number] [place] [address] [place] Oxygen (Bld) [Partial pressure] 124 mm Hg High 85-95 [facility] Comment on above: Order Comment: Speci men Type: ARTERIAL BLOOD SPECIMENOrdering Facility: [facility] Address: [address] [place] [address] Performed By: #### A LLBG ####[facility] LABCLIA [id number] [place] [address] [place] Oxyhemoglobin (BldA) [Mass fraction] 96 % Normal 95-98 [facility] Comment on above: Order Comment: Speci men Type: ARTERIAL BLOOD SPECIMENOrdering Facility: [facility] Address: [address] [place] [address] Performed By: #### A LLBG ####[facility] LABCLIA [id number] [place] [address] [place] pH (Bld) 7.42 [pH] Normal 7.35-7.45 [facility] Comment on above: Order Comment: Speci men Type: ARTERIAL BLOOD SPECIMENOrdering Facility: [facility] Address: [address] [place] [address] Performed By: #### A LLBG ####[facility] LABCLIA [id number] [place] [address] [place] PO2 / FIO2 RATIO 413 mmHg Normal >300 [facility] Comment on above: Order Comment: Speci men Type: ARTERIAL BLOOD SPECIMENOrdering Facility: [facility] Address: [address] [place] [address] Performed By: #### A LLBG ####[facility] LABCLIA [id number] [place] [address] [place] Base excess Calc (Bld) [Moles/Vol] 2 mmol/L Normal 0-2 [facility] Comment on above: Order Comment: Speci men Type: ARTERIAL BLOOD SPECIMENOrdering Facility: [facility] Address: [address] [place] [address] Performed By: #### A LLBG ####[facility] LABCLIA [id number] [address] [place] Body temperature 98.6 [degF] Normal [facility] Comment on above: Order Comment: Speci men Type: ARTERIAL BLOOD SPECIMENOrdering Facility: [facility] Address: [address] [place] [address] Performed By: #### A LLBG ####[facility] LABCLIA [id number] [place] [address] [place] Order Comment: Speci men Type: VENOUS BLOOD SPECIMENOrdering Facility: [facility] Address: [address] [place] [address] Performed By: #### 2 4344-4 ####[facility] LABCLIA [id number] [place] [address] [place] Calcium.ionized (Bld) [Mass/Vol] 1.21 mmol/L Normal 1.08-1.30 [facility] Comment on above: Order Comment: Speci men Type: ARTERIAL BLOOD SPECIMENOrdering Facility: [facility] Address: [address] [place] [address] Performed By: #### A LLBG ####[facility] LABIA [id number] [place] [address] [place] Calcium.ionized adjusted to pH 7.4 (BldA) [Moles/Vol] 1.22 mmol/L Normal 1.08-1.30 [facility] Comment on above: Order Comment: Speci men Type: ARTERIAL BLOOD SPECIMENOrdering Facility: [facility] Address: [address] [place] [address] Performed By: #### A LLBG ####[facility] LABIA [id number] [place] [address] [place] Carboxyhemoglobin (BldA) [Mass fraction] 0.7 % Normal 0.0-2.0 [facility] Comment on above: Order Comment: Speci men Type: ARTERIAL BLOOD SPECIMENOrdering Facility: [facility] Address: [address] [place] [address] Result Comment: Carb oxyhemoglobin Reference Range for Smokers: 2.0-8.0% Performed By: #### A LLBG ####[facility] LABIA [id number] [place] [address] [place] CO2 (Bld) [Partial pressure] 42 mm Hg Normal 36-46 [facility] Comment on above: Order Comment: Speci men Type: ARTERIAL BLOOD SPECIMENOrdering Facility: [facility] Address: [address] [place] [address] Performed By: #### A LLBG ####[facility] LABIA [id number] [place] [address] [place] FIO2 30 % Normal [facility] Comment on above: Order Comment: Speci men Type: ARTERIAL BLOOD SPECIMENOrdering Facility: [facility] Address: [address] [place] [address] Performed By: #### A LLBG ####[facility] LABCLIA [id number] [place] [address] [place] Order Comment: Speci men Type: VENOUS BLOOD SPECIMENOrdering Facility: [facility] Address: [address] [place] [address] Performed By: #### 2 4344-4 ####[facility] LABCLIA [id number] [place] [address] [place] Glucose [Mass/Vol] 121 mg/dL High 60-105 [facility] Comment on above: Order Comment: Speci men Type: ARTERIAL BLOOD SPECIMENOrdering Facility: [facility] Address: [address] [place] [address] Performed By: #### A LLBG ####[facility] LABCLIA [id number] [place] [address] [place] Order Comment: Speci men Type: VENOUS BLOOD SPECIMENOrdering Facility: [facility] Address: [address] [place] [address] Performed By: #### 2 4344-4 ####[facility] LABCLIA [id number] [place] [address] [place] HCO3 (Bld) [Moles/Vol] 26 mmol/L Normal 22-26 [facility] Comment on above: Order Comment: Speci men Type: ARTERIAL BLOOD SPECIMENOrdering Facility: [facility] Address: [address] [place] [address] Performed By: #### A LLBG ####[facility] LABCLIA [id number] [place] [address] [place] Hematocrit (Bld) [Volume fraction] 32.4 % Low 39.0-51.0 [facility] Comment on above: Order Comment: Speci men Type: ARTERIAL BLOOD SPECIMENOrdering Facility: [facility] Address: [address] [place] [address] Performed By: #### A LLBG ####[facility] LABCLIA [id number] [place] [address] [place] Hemoglobin (Bld) [Mass/Vol] 10.5 g/dL Low 13.0-17.0 [facility] Comment on above: Order Comment: Speci men Type: ARTERIAL BLOOD SPECIMENOrdering Facility: [facility] Address: [address] [place] [address] Performed By: #### A LLBG ####[facility] LABCLIA [id number] [place] [address] [place] Lactate [Moles/Vol] 1.8 mmol/L Normal 0.5-2.2 [facility] Comment on above: Order Comment: Speci men Type: ARTERIAL BLOOD SPECIMENOrdering Facility: [facility] Address: [address] [place] [address] Performed By: #### A LLBG ####[facility] LABIA [id number] [place] [address] [place] Methemoglobin (Bld) [Mass fraction] 1.2 % Normal 0.0-1.5 [facility] Comment on above: Order Comment: Speci men Type: ARTERIAL BLOOD SPECIMENOrdering Facility: [facility] Address: [address] [place] [address] Performed By: #### A LLBG ####[facility] LABIA [id number] [place] [address] [place] O2 THERAPY VENT=Ventilator Normal [facility] Comment on above: Order Comment: Speci men Type: ARTERIAL BLOOD SPECIMENOrdering Facility: [facility] Address: [address] [place] [address] Performed By: #### A LLBG ####[facility] LABCLIA [id number] [place] [address] [place] Order Comment: Speci men Type: VENOUS BLOOD SPECIMENOrdering Facility: [facility] Address: [address] [place] [address] Performed By: #### 2 4344-4 ####[facility] LABCLIA [id number] [place] [address] [place] Oxygen (Bld) [Partial pressure] 133 mm Hg High 85-95 [facility] Comment on above: Order Comment: Speci men Type: ARTERIAL BLOOD SPECIMENOrdering Facility: [facility] Address: [address] [place] [address] Performed By: #### A LLBG ####[facility] LABCLIA [id number] [place] [address] [place] Oxyhemoglobin (BldA) [Mass fraction] 97 % Normal 95-98 [facility] Comment on above: Order Comment: Speci men Type: ARTERIAL BLOOD SPECIMENOrdering Facility: [facility] Address: [address] [place] [address] Performed By: #### A LLBG ####[facility] LABCLIA [id number] [place] [address] [place] PEEP/CPAP 8 cmH2O Normal [facility] Comment on above: Order Comment: Speci men Type: ARTERIAL BLOOD SPECIMENOrdering Facility: [facility] Address: [address] [place] [address] Performed By: #### A LLBG ####[facility] LABCLIA [id number] [place] [address] [place] pH (Bld) 7.41 [pH] Normal 7.35-7.45 [facility] Comment on above: Order Comment: Speci men Type: ARTERIAL BLOOD SPECIMENOrdering Facility: [facility] Address: [address] [place] [address] Performed By: #### A LLBG ####[facility] LABCLIA [id number] [place] [address] [place] PO2 / FIO2 RATIO 443 mmHg Normal >300 [facility] Comment on above: Order Comment: Speci men Type: ARTERIAL BLOOD SPECIMENOrdering Facility: [facility] Address: [address] [place] [address] Performed By: #### A LLBG ####[facility] LABCLIA [id number] [place] [address] [place] Potassium [Moles/Vol] 4.2 mmol/L Normal 3.5-5.0 [facility] Comment on above: Order Comment: Speci men Type: ARTERIAL BLOOD SPECIMENOrdering Facility: [facility] Address: [address] [place] [address] Performed By: #### A LLBG ####[facility] LABCLIA [id number] [place] [address] [place] Sodium [Moles/Vol] 137 mmol/L Normal 136-144 [facility] Comment on above: Order Comment: Speci men Type: ARTERIAL BLOOD SPECIMENOrdering Facility: [facility] Address: [address] [place] [address] Performed By: #### A LLBG ####[facility] LABCLIA [id number] [place] [address] [place] Order Comment: Speci men Type: VENOUS BLOOD SPECIMENOrdering Facility: [facility] Address: [address] [place] [address] Performed By: #### 2 4344-4 ####[facility] LABCLIA [id number] [place] [address] [place] CBC panel Auto (Bld)on 01-24 Erythrocyte distribution width (RBC) [Ratio] 15.0 % Normal 11.5-15.0 [facility] Comment on above: Order Comment: Speci men Type: BLOOD SPECIMENOrdering Facility: [facility] Address: [address] [place] [address] Performed By: #### 5 8410-2 ####[facility] LABCLIA [id number] [place] [address] [place] Hematocrit (Bld) [Volume fraction] 32.0 % Low 39.0-51.0 [facility] Comment on above: Order Comment: Speci men Type: BLOOD SPECIMENOrdering Facility: [facility] Address: [address] [place] [address] Performed By: #### 5 8410-2 ####[facility] LABIA [id number] [place] [address] [place] MCH (RBC) [Entitic mass] 27.4 pg Normal 26.0-34.0 [facility] Comment on above: Order Comment: Speci men Type: BLOOD SPECIMENOrdering Facility: [facility] Address: [address] [place] [address] Performed By: #### 5 8410-2 ####[facility] LABIA [id number] [place] [address] [place] MCHC (RBC) [Mass/Vol] 32.2 g/dL Normal 30.5-36.0 [facility] Comment on above: Order Comment: Speci men Type: BLOOD SPECIMENOrdering Facility: [facility] Address: [address] [place] [address] Performed By: #### 5 8410-2 ####[facility] LABIA [id number] [place] [address] [place] MCV (RBC) [Entitic vol] 85.1 fL Normal 80.0-100.0 [facility] Comment on above: Order Comment: Speci men Type: BLOOD SPECIMENOrdering Facility: [facility] Address: [address] [place] [address] Performed By: #### 5 8410-2 ####[facility] LABIA [id number] [place] [address] [place] Nucleated RBC (Bld) [#/Vol] 10*3/uL Normal <0.01 [facility] Comment on above: Order Comment: Speci men Type: BLOOD SPECIMENOrdering Facility: [facility] Address: [address] [place] [address] Performed By: #### 5 8410-2 ####[facility] LABIA [id number] [place] [address] [place] Platelet mean volume (Bld) [Entitic vol] 10.9 fL Normal 9.0-12.7 [facility] Comment on above: Order Comment: Speci men Type: BLOOD SPECIMENOrdering Facility: [facility] Address: [address] [place] [address] Performed By: #### 5 8410-2 ####[facility] [id number] [place] [address] [place] Platelets (Bld) [#/Vol] 100 10*3/uL Low 150-400 [facility] Comment on above: Order Comment: Speci men Type: BLOOD SPECIMENOrdering Facility: [facility] Address: [address] [place] [address] Result Comment: Resu lts checked and verified.No clot detected. Performed By: #### 5 8410-2 ####[facility] LABIA [id number] [place] [address] [place] RBC (Bld) [#/Vol] 3.76 10*6/uL Low 4.20-6.00 [facility] Comment on above: Order Comment: Speci men Type: BLOOD SPECIMENOrdering Facility: [facility] Address: [address] [place] [address] Performed By: #### 5 8410-2 ####[facility] LABIA [id number] [place] [address] [place] WBC (Bld) [#/Vol] 13.62 10*3/uL High 3.70-11.00 [facility] Comment on above: Order Comment: Speci men Type: BLOOD SPECIMENOrdering Facility: [facility] Address: [address] [place] [address] Performed By: #### 5 8410-2 ####[facility] LABCLIA [id number] [place] [address] [place] Comp Metab 2000 Pnl SerPlon 01-25-2024 Potassium [Moles/Vol] 4.3 mmol/L Normal 3.5-5.0 [facility] Comment on above: Order Comment: Speci men Type: BLOOD SPECIMENOrdering Facility: [facility] Address: [address] [place] [address] Performed By: #### 2 4323-8 ####[facility] LABCLIA [id number] [address] [place] Order Comment: Speci men Type: VENOUS BLOOD SPECIMENOrdering Facility: [facility] Address: [address] [place] [address] Performed By: #### 2 4344-4 ####[facility] LABCLIA [id number] [address] [place] Order Comment: Speci men Type: ARTERIAL BLOOD SPECIMENOrdering Facility: [facility] Address: [address] [place] [address] Performed By: #### A LLBG ####[facility] LABCLIA [id number] [address] [place] Sodium [Moles/Vol] 140 mmol/L Normal 136-144 [facility] Comment on above: Order Comment: Speci men Type: BLOOD SPECIMENOrdering Facility: [facility] Address: [address] [id number] Performed By: #### 2 4323-8 ####[facility] LABCLIA [id number] [address] [place] Order Comment: Speci men Type: ARTERIAL BLOOD SPECIMENOrdering Facility: [facility] Address: [address] [place] [address] Performed By: #### A LLBG ####[facility] LABCLIA [id number] [place] [address] [place] Order Comment: Speci men Type: VENOUS BLOOD SPECIMENOrdering Facility: [facility] Address: [address] [place] [address] Performed By: #### 2 4344-4 ####[facility] LABCLIA [id number] [place] [address] [place] Comprehensive metabolic 2000 panelon 01-25-2024 Albumin [Mass/Vol] 4.1 g/dL Normal 3.9-4.9 [facility] Comment on above: Order Comment: Speci men Type: BLOOD SPECIMENOrdering Facility: [facility] Address: [address] [place] [address] Performed By: #### 2 4323-8 ####[facility] LABCLIA [id number] [place] [address] [place] ALP [Catalytic activity/Vol] 41 U/L Normal 38-113 [facility] Comment on above: Order Comment: Speci men Type: BLOOD SPECIMENOrdering Facility: [facility] Address: [address] [place] [address] Performed By: #### 2 4323-8 ####[facility] LABCLIA [id number] [place] [address] [place] ALT [Catalytic activity/Vol] 12 U/L Normal 10-54 [facility] Comment on above: Order Comment: Speci men Type: BLOOD SPECIMENOrdering Facility: [facility] Address: [address] [place] [address] Performed By: #### 2 4323-8 ####[facility] LABCLIA [id number] [place] [address] [place] Anion gap [Moles/Vol] 13 mmol/L Normal 8-15 [facility] Comment on above: Order Comment: Speci men Type: BLOOD SPECIMENOrdering Facility: [facility] Address: [address] [place] [address] Performed By: #### 2 4323-8 ####[facility] LABCLIA [id number] [place] [address] [place] AST [Catalytic activity/Vol] 49 U/L High 14-40 [facility] Comment on above: Order Comment: Speci men Type: BLOOD SPECIMENOrdering Facility: [facility] Address: [address] [place] [address] Performed By: #### 2 4323-8 ####[facility] LABCLIA [id number] [place] [address] [place] Bilirubin [Mass/Vol] 0.5 mg/dL Normal 0.2-1.3 [facility] Comment on above: Order Comment: Speci men Type: BLOOD SPECIMENOrdering Facility: [facility] Address: [address] [place] [address] Performed By: #### 2 4323-8 ####[facility] LABCLIA [id number] [place] [address] [place] Calcium [Mass/Vol] 8.9 mg/dL Normal 8.5-10.2 [facility] Comment on above: Order Comment: Speci men Type: BLOOD SPECIMENOrdering Facility: [facility] Address: [address] [place] [address] Performed By: #### 2 4323-8 ####[facility] LABCLIA [id number] [place] [id number] [place] Chloride [Moles/Vol] 101 mmol/L Normal 98-107 [facility] Comment on above: Order Comment: Speci men Type: BLOOD SPECIMENOrdering Facility: [facility] Address: [address] [place], [place] [address] Performed By: #### 2 4323-8 ####[facility] LABCLIA [id number] [place] [address] [place] CO2 [Moles/Vol] 24 mmol/L Normal 22-30 [facility] Comment on above: Order Comment: Speci men Type: BLOOD SPECIMENOrdering Facility: [facility] Address: [address] [place] [address] Performed By: #### 2 4323-8 ####[facility] LABCLIA [id number] [place] [address] [place] Creatinine [Mass/Vol] 1.14 mg/dL Normal 0.73-1.22 [facility] Comment on above: Order Comment: Speci men Type: BLOOD SPECIMENOrdering Facility: [facility] Address: [address] [place] [address] Performed By: #### 2 4323-8 ####[facility] LABCLIA [id number] [place] [address] [place] Creatinine and Glomerular filtration rate.predicted panel (S/P/Bld) 71 mL/min/1.73m??? Normal >=60 [facility] Comment on above: Order Comment: Speci men Type: BLOOD SPECIMENOrdering Facility: [facility] Address: [address] [place] [address] Result Comment: Talisha mated Glomerular Filtration Rate [...] actual GFR. Performed By: #### 2 4323-8 ####[facility] LABCLIA [id number] [place] [address] [place] Glucose [Mass/Vol] 122 mg/dL High 74-99 [facility] Comment on above: Order Comment: Speci men Type: BLOOD SPECIMENOrdering Facility: [facility] Address: [address] [place] [address] Result Comment: The [place] [employer] Association (ADA) provides guidance for cutoff [...] Standards of Medical Care in Diabetes 2016, [place] [employer]. Diabetes Care. 2016.39(Suppl 1). Performed By: #### 2 4323-8 ####[facility] LABIA [id number] [place] [address] [place] Protein [Mass/Vol] 6.1 g/dL Low 6.3-8.0 [facility] Comment on above: Order Comment: Speci men Type: BLOOD SPECIMENOrdering Facility: [facility] Address: [address] [place] [address] Performed By: #### 2 4323-8 ####[facility] [id number] [place] [address] [place] Urea nitrogen [Mass/Vol] 34 mg/dL High 9-24 [facility] Comment on above: Order Comment: Speci men Type: BLOOD SPECIMENOrdering Facility: [facility] Address: [address] [place] [id number] Performed By: #### 2 4323-8 ####[facility] [id number] [place] [address] [place] Gas + CO Pnl BldVon 01-25-20 Body temperature 98.6 [degF] Normal [facility] Comment on above: Order Comment: Speci men Type: VENOUS BLOOD SPECIMENOrdering Facility: [facility] Address: [address] [place] [address] Performed By: #### 2 4344-4 ####[facility] LABCLIA [id number] [address] [place] Order Comment: Speci men Type: ARTERIAL BLOOD SPECIMENOrdering Facility: [facility] Address: [address] [place] [address] Performed By: #### A LLBG ####[facility] LABCLIA [id number] [place] [address] [place] Calcium.ionized (Bld) [Mass/Vol] 1.16 mmol/L Normal 1.08-1.30 [facility] Comment on above: Order Comment: Speci men Type: VENOUS BLOOD SPECIMENOrdering Facility: [facility] Address: [address] [place] [address] Performed By: #### 2 4344-4 ####[facility] LABCLIA [id number] [address] [place] Order Comment: Speci men Type: ARTERIAL BLOOD SPECIMENOrdering Facility: [facility] Address: [address] [place] [address] Performed By: #### A LLBG ####[facility] LABCLIA [id number] [place] [address] [place] O2 THERAPY Positive Normal [facility] Comment on above: Order Comment: Speci men Type: VENOUS BLOOD SPECIMENOrdering Facility: [facility] Address: [address] [place] [address] Performed By: #### 2 4344-4 ####[facility] LABCLIA [id number] [place] [address] [place] Order Comment: Speci men Type: ARTERIAL BLOOD SPECIMENOrdering Facility: [facility] Address: [address] [place] [address] Performed By: #### A LLBG ####[facility] LABCLIA [id number] [place] [address] [place] Body temperature 98.6 [degF] Normal [facility] Comment on above: Order Comment: Speci men Type: VENOUS BLOOD SPECIMENOrdering Facility: [facility] Address: [address] [place] [address] Performed By: #### 2 4344-4 ####[facility] LABCLIA [id number] [place] [address] [place] Order Comment: Speci men Type: ARTERIAL BLOOD SPECIMENOrdering Facility: [facility] Address: [address] [place] [address] Performed By: #### A LLBG ####[facility] LABCLIA [id number] [place] [address] [place] HCO3 (Bld) [Moles/Vol] 28 mmol/L High 22-26 [facility] Comment on above: Order Comment: Speci men Type: VENOUS BLOOD SPECIMENOrdering Facility: [facility] Address: [address] [place] [address] Performed By: #### 2 4344-4 ####[facility] LABCLIA [id number] [address] [place] Order Comment: Speci men Type: ARTERIAL BLOOD SPECIMENOrdering Facility: [facility] Address: [address] [place] [address] Performed By: #### A LLBG ####[facility] LABCLIA [id number] [place] [address] [place] Lactate [Moles/Vol] 1.3 mmol/L Normal 0.5-2.2 [facility] Comment on above: Order Comment: Speci men Type: VENOUS BLOOD SPECIMENOrdering Facility: [facility] Address: [address] [place] [address] Performed By: #### 2 4344-4 ####[facility] LABCLIA [id number] [place] [address] [place] Order Comment: Speci men Type: ARTERIAL BLOOD SPECIMENOrdering Facility: [facility] Address: [address] [id number] Performed By: #### A LLBG ####[facility] LABCLIA [id number] [place] [id number] [place] LITERS 4 Liters/min Normal [facility] Comment on above: Order Comment: Speci men Type: VENOUS BLOOD SPECIMENOrdering Facility: [facility] Address: [address] [place], [place] [address] Performed By: #### 2 4344-4 ####[facility] LABCLIA [id number] [place] [address] [place] Order Comment: Speci men Type: ARTERIAL BLOOD SPECIMENOrdering Facility: [facility] Address: [address] [place], [place] [address] Performed By: #### A LLBG ####[facility] LABCLIA [id number] [place] [address] [place] O2 THERAPY NC = Nasal Cannula Normal [facility] Comment on above: Order Comment: Speci men Type: VENOUS BLOOD SPECIMENOrdering Facility: [facility] Address: [address] [place], [place] [address] Performed By: #### 2 4344-4 ####[facility] LABCLIA [id number] [place] [address] [place] Order Comment: Speci men Type: ARTERIAL BLOOD SPECIMENOrdering Facility: [facility] Address: [address] [place] [id number] Performed By: #### A LLBG ####[facility] LABCLIA [id number] [place] [id number] [place] Body temperature 98.6 [degF] Normal [facility] Comment on above: Order Comment: Speci men Type: VENOUS BLOOD SPECIMENOrdering Facility: [facility] Address: [address] [place], [place] [address] Performed By: #### 2 4344-4 ####[facility] LABCLIA [id number] [place] [address] [place] Order Comment: Speci men Type: ARTERIAL BLOOD SPECIMENOrdering Facility: [facility] Address: [address] [place] [address] Performed By: #### A LLBG ####[facility] LABCLIA [id number] [place] [address] [place] FIO2 30 % Normal [facility] Comment on above: Order Comment: Speci men Type: VENOUS BLOOD SPECIMENOrdering Facility: [facility] Address: [address] [place] [address] Performed By: #### 2 4344-4 ####[facility] LABCLIA [id number] [address] [place] Order Comment: Speci men Type: ARTERIAL BLOOD SPECIMENOrdering Facility: [facility] Address: [address] [place] [address] Performed By: #### A LLBG ####[facility] LABCLIA [id number] [place] [address] [place] Lactate [Moles/Vol] 1.4 mmol/L Normal 0.5-2.2 [facility] Comment on above: Order Comment: Speci men Type: VENOUS BLOOD SPECIMENOrdering Facility: [facility] Address: [address] [place] [address] Performed By: #### 2 4344-4 ####[facility] LABCLIA [id number] [place] [address] [place] Order Comment: Speci men Type: ARTERIAL BLOOD SPECIMENOrdering Facility: [facility] Address: [address] [place] [address] Performed By: #### A LLBG ####[facility] LABCLIA [id number] [place] [address] [place] O2 THERAPY VENT=Ventilator Normal [facility] Comment on above: Order Comment: Speci men Type: VENOUS BLOOD SPECIMENOrdering Facility: [facility] Address: [address] [place] [address] Performed By: #### 2 4344-4 ####[facility] LABCLIA [id number] [address] [place] Order Comment: Speci men Type: ARTERIAL BLOOD SPECIMENOrdering Facility: [facility] Address: [address] [place] [address] Performed By: #### A LLBG ####[facility] LABCLIA [id number] [address] [place] Body temperature 98.6 [degF] Normal [facility] Comment on above: Order Comment: Speci men Type: VENOUS BLOOD SPECIMENOrdering Facility: [facility] Address: [address] [place] [address] Performed By: #### 2 4344-4 ####[facility] LABCLIA [id number] [address] [place] Order Comment: Speci men Type: ARTERIAL BLOOD SPECIMENOrdering Facility: [facility] Address: [address] [place] [address] Performed By: #### A LLBG ####[facility] LABCLIA [id number] [address] [place] Calcium.ionized adjusted to pH 7.4 (BldA) [Moles/Vol] 1.20 mmol/L Normal 1.08-1.30 [facility] Comment on above: Order Comment: Speci men Type: VENOUS BLOOD SPECIMENOrdering Facility: [facility] Address: [address] [place] [address] Performed By: #### 2 4344-4 ####[facility] LABCLIA [id number] [address] [place] Order Comment: Speci men Type: ARTERIAL BLOOD SPECIMENOrdering Facility: [facility] Address: [address] [id number] Performed By: #### A LLBG ####[facility] LABCLIA [id number] [address] [address] [place] FIO2 30 % Normal [facility] Comment on above: Order Comment: Speci men Type: VENOUS BLOOD SPECIMENOrdering Facility: [facility] Address: [address] [id number] Performed By: #### 2 4344-4 ####[facility] LABCLIA [id number] [place] [address] [place] Order Comment: Speci men Type: ARTERIAL BLOOD SPECIMENOrdering Facility: [facility] Address: [address] [id number] Performed By: #### A LLBG ####[facility] LABCLIA [id number] [place] [address] [place] Lactate [Moles/Vol] 1.3 mmol/L Normal 0.5-2.2 [facility] Comment on above: Order Comment: Speci men Type: VENOUS BLOOD SPECIMENOrdering Facility: [facility] Address: [address] [place], [place] [address] Performed By: #### 2 4344-4 ####[facility] LABCLIA [id number] [place] [id number] [place] Order Comment: Speci men Type: ARTERIAL BLOOD SPECIMENOrdering Facility: [facility] Address: [address] [id number] Performed By: #### A LLBG ####[facility] LABCLIA [id number] [place] [id number] [place] O2 THERAPY VENT=Ventilator Normal [facility] Comment on above: Order Comment: Speci men Type: VENOUS BLOOD SPECIMENOrdering Facility: [facility] Address: [address] [place], [place] [address] Performed By: #### 2 4344-4 ####[facility] LABCLIA [id number] [place] [id number] [place] Order Comment: Speci men Type: ARTERIAL BLOOD SPECIMENOrdering Facility: [facility] Address: [address] [id number] Performed By: #### A LLBG ####[facility] LABCLIA [id number] [place] [id number] [place] PEEP/CPAP 8 cmH2O Normal [facility] Comment on above: Order Comment: Speci men Type: VENOUS BLOOD SPECIMENOrdering Facility: [facility] Address: [address] [place] [address] Performed By: #### 2 4344-4 ####[facility] LABCLIA [id number] [place] [address] [place] Order Comment: Speci men Type: ARTERIAL BLOOD SPECIMENOrdering Facility: [facility] Address: [address] [id number] Performed By: #### A LLBG ####[facility] LABCLIA [id number] [place] [address] [place] Sodium [Moles/Vol] 137 mmol/L Normal 136-144 [facility] Comment on above: Order Comment: Speci men Type: VENOUS BLOOD SPECIMENOrdering Facility: [facility] Address: [address] [id number] Performed By: #### 2 4344-4 ####[facility] LABCLIA [id number] [place] [id number] [place] Order Comment: Speci men Type: ARTERIAL BLOOD SPECIMENOrdering Facility: [facility] Address: [address] [id number] Performed By: #### A LLBG ####[facility] LABCLIA [id number] [place] [id number] [place] Hemoglobin (Bld) [Mass/Vol] 10.3 g/dL Low 13.0-17.0 [facility] Comment on above: Order Comment: Speci men Type: VENOUS BLOOD SPECIMENOrdering Facility: [facility] Address: [address] [place] [address] Performed By: #### 2 4344-4 ####[facility] LABCLIA [id number] [place] [address] [place] Order Comment: Speci men Type: BLOOD SPECIMENOrdering Facility: [facility] Address: [address] [place] [address] Performed By: #### 5 8410-2 ####[facility] LABCLIA [id number] [place] [address] [place] Gas and Carbon monoxide pane l (BldV)on 01-25-2024 Base excess Calc (BldV) [Moles/Vol] 6 mmol/L High 0-2 [facility] Comment on above: Order Comment: Speci men Type: VENOUS BLOOD SPECIMENOrdering Facility: [facility] Address: [address] [place] [address] Performed By: #### 2 4344-4 ####[facility] LABIA [id number] [place] [address] [place] Calcium.ionized adjusted to pH 7.4 (BldA) [Moles/Vol] 1.17 mmol/L Normal 1.08-1.30 [facility] Comment on above: Order Comment: Speci men Type: VENOUS BLOOD SPECIMENOrdering Facility: [facility] Address: [address] [place] [address] Performed By: #### 2 4344-4 ####[facility] LABCLIA [id number] [place] [address] [place] Carboxyhemoglobin (BldV) [Mass fraction] 1.6 % Normal 0.0-2.0 [facility] Comment on above: Order Comment: Speci men Type: VENOUS BLOOD SPECIMENOrdering Facility: [facility] Address: [address] [id number] Result Comment: Carb oxyhemoglobin Reference Range for Smokers: 2.0-8.0% Performed By: #### 2 4344-4 ####[facility] LABCLIA [id number] [address] [address] [place] CO2 (BldV) [Partial pressure] 52 mm[Hg] Normal 42-55 [facility] Comment on above: Order Comment: Speci men Type: VENOUS BLOOD SPECIMENOrdering Facility: [facility] Address: [address] [place] [address] Performed By: #### 2 4344-4 ####[facility] LABCLIA [id number] [place] [address] [place] DATE/TIME NOTIFIED [id number] PM Normal [facility] Comment on above: Order Comment: Speci men Type: VENOUS BLOOD SPECIMENOrdering Facility: [facility] Address: [address] [place] [address] Performed By: #### 2 4344-4 ####[facility] LABCLIA [id number] [place] [address] [place] Glucose [Mass/Vol] 124 mg/dL High 60-105 [facility] Comment on above: Order Comment: Speci men Type: VENOUS BLOOD SPECIMENOrdering Facility: [facility] Address: [address] [place] [address] Performed By: #### 2 4344-4 ####[facility] LABCLIA [id number] [place] [id number] [place] HCO3 (Bld) [Moles/Vol] 31 mmol/L High 24-28 [facility] Comment on above: Order Comment: Speci men Type: VENOUS BLOOD SPECIMENOrdering Facility: [facility] Address: [address] [place] [address] Performed By: #### 2 4344-4 ####[facility] LABIA [id number] [place] [address] [place] Hematocrit (Bld) [Volume fraction] 32.0 % Low 39.0-51.0 [facility] Comment on above: Order Comment: Speci men Type: VENOUS BLOOD SPECIMENOrdering Facility: [facility] Address: [address] [place] [address] Performed By: #### 2 4344-4 ####[facility] LABIA [id number] [place] [address] [place] Hemoglobin (Bld) [Mass/Vol] 10.4 g/dL Low 13.0-17.0 [facility] Comment on above: Order Comment: Speci men Type: VENOUS BLOOD SPECIMENOrdering Facility: [facility] Address: [address] [place] [address] Performed By: #### 2 4344-4 ####[facility] LABIA [id number] [place] [address] [place] Lactate [Moles/Vol] 1.1 mmol/L Normal 0.5-2.2 [facility] Comment on above: Order Comment: Speci men Type: VENOUS BLOOD SPECIMENOrdering Facility: [facility] Address: [address] [place] [address] Performed By: #### 2 4344-4 ####[facility] LABIA [id number] [place] [address] [place] Methemoglobin (Bld) [Mass fraction] 0.8 % Normal 0.0-1.5 [facility] Comment on above: Order Comment: Speci men Type: VENOUS BLOOD SPECIMENOrdering Facility: [facility] Address: [address] [place] [address] Performed By: #### 2 4344-4 ####[facility] LABIA [id number] [address] [id number] [address] [place] NOTIFIED WHOM NO CALL Q50 KHASSENZAHL Normal [facility] Comment on above: Order Comment: Speci men Type: VENOUS BLOOD SPECIMENOrdering Facility: [facility] Address: [address] [place] [address] Performed By: #### 2 4344-4 ####[facility] LABCLIA [id number] [address] [address] [place] Oxygen (BldV) [Partial pressure] 40 mm[Hg] Normal 35-45 [facility] Comment on above: Order Comment: Speci men Type: VENOUS BLOOD SPECIMENOrdering Facility: [facility] Address: [address] [place] [address] Performed By: #### 2 4344-4 ####[facility] LABCLIA [id number] [place] [address] [place] Oxygen saturation in Venous blood 72 % Normal 60-85 [facility] Comment on above: Order Comment: Speci men Type: VENOUS BLOOD SPECIMENOrdering Facility: [facility] Address: [address] [place], [place] [address] Performed By: #### 2 4344-4 ####[facility] LABCLIA [id number] [place] [address] [place] Oxyhemoglobin (BldV) [Mass fraction] 70 % Normal 60-85 [facility] Comment on above: Order Comment: Speci men Type: VENOUS BLOOD SPECIMENOrdering Facility: [facility] Address: [address] [place] [address] Performed By: #### 2 4344-4 ####[facility] LABCLIA [id number] [place] [id number] [place] pH (BldV) 7.39 [pH] Normal 7.32-7.42 [facility] Comment on above: Order Comment: Speci men Type: VENOUS BLOOD SPECIMENOrdering Facility: [facility] Address: [address] [place] [address] Performed By: #### 2 4344-4 ####[facility] LABIA [id number] [place] [address] [place] Potassium [Moles/Vol] 4.4 mmol/L Normal 3.5-5.0 [facility] Comment on above: Order Comment: Speci men Type: VENOUS BLOOD SPECIMENOrdering Facility: [facility] Address: [address] [place] [address] Performed By: #### 2 4344-4 ####[facility] [id number] [place] [address] [place] Base excess Calc (BldV) [Moles/Vol] 6 mmol/L High 0-2 [facility] Comment on above: Order Comment: Speci men Type: VENOUS BLOOD SPECIMENOrdering Facility: [facility] Address: [address] [place] [address] Performed By: #### 2 4344-4 ####[facility] [id number] [place] [address] [place] Calcium.ionized adjusted to pH 7.4 (BldA) [Moles/Vol] 1.15 mmol/L Normal 1.08-1.30 [facility] Comment on above: Order Comment: Speci men Type: VENOUS BLOOD SPECIMENOrdering Facility: [facility] Address: [address] [place] [address] Performed By: #### 2 4344-4 ####[facility] [id number] [place] [address] [place] Carboxyhemoglobin (BldV) [Mass fraction] 1.6 % Normal 0.0-2.0 [facility] Comment on above: Order Comment: Speci men Type: VENOUS BLOOD SPECIMENOrdering Facility: [facility] Address: [address] [place] [address] Result Comment: Carb oxyhemoglobin Reference Range for Smokers: 2.0-8.0% Performed By: #### 2 4344-4 ####[facility] LABCLIA [id number] [place] [address] [place] CO2 (BldV) [Partial pressure] 52 mm[Hg] Normal 42-55 [facility] Comment on above: Order Comment: Speci men Type: VENOUS BLOOD SPECIMENOrdering Facility: [facility] Address: [address] [place] [address] Performed By: #### 2 4344-4 ####[facility] LABCLIA [id number] [place] [address] [place] Glucose [Mass/Vol] 128 mg/dL High 60-105 [facility] Comment on above: Order Comment: Speci men Type: VENOUS BLOOD SPECIMENOrdering Facility: [facility] Address: [address] [place] [address] Performed By: #### 2 4344-4 ####[facility] LABCLIA [id number] [place] [address] [place] HCO3 (Bld) [Moles/Vol] 31 mmol/L High 24-28 [facility] Comment on above: Order Comment: Speci men Type: VENOUS BLOOD SPECIMENOrdering Facility: [facility] Address: [address] [place] [address] Performed By: #### 2 4344-4 ####[facility] LABCLIA [id number] [place] [address] [place] Hematocrit (Bld) [Volume fraction] 33.1 % Low 39.0-51.0 [facility] Comment on above: Order Comment: Speci men Type: VENOUS BLOOD SPECIMENOrdering Facility: [facility] Address: [address] [place] [address] Performed By: #### 2 4344-4 ####[facility] LABCLIA [id number] [place] [address] [place] Hemoglobin (Bld) [Mass/Vol] 10.7 g/dL Low 13.0-17.0 [facility] Comment on above: Order Comment: Speci men Type: VENOUS BLOOD SPECIMENOrdering Facility: [facility] Address: [address] [place] [address] Performed By: #### 2 4344-4 ####[facility] LABCLIA [id number] [place] [address] [place] Lactate [Moles/Vol] 1.1 mmol/L Normal 0.5-2.2 [facility] Comment on above: Order Comment: Speci men Type: VENOUS BLOOD SPECIMENOrdering Facility: [facility] Address: [address] [place] [address] Performed By: #### 2 4344-4 ####[facility] LABIA [id number] [place] [address] [place] Methemoglobin (Bld) [Mass fraction] 1.4 % Normal 0.0-1.5 [facility] Comment on above: Order Comment: Speci men Type: VENOUS BLOOD SPECIMENOrdering Facility: [facility] Address: [address] [place] [address] Performed By: #### 2 4344-4 ####[facility] LABCLIA [id number] [place] [address] [place] Oxygen (BldV) [Partial pressure] 40 mm[Hg] Normal 35-45 [facility] Comment on above: Order Comment: Speci men Type: VENOUS BLOOD SPECIMENOrdering Facility: [facility] Address: [address] [place] [address] Performed By: #### 2 4344-4 ####[facility] LABIA [id number] [place] [address] [place] Oxygen saturation in Venous blood 72 % Normal 60-85 [facility] Comment on above: Order Comment: Speci men Type: VENOUS BLOOD SPECIMENOrdering Facility: [facility] Address: [address] [place] [address] Performed By: #### 2 4344-4 ####[facility] LABIA [id number] [place] [address] [place] Oxyhemoglobin (BldV) [Mass fraction] 70 % Normal 60-85 [facility] Comment on above: Order Comment: Speci men Type: VENOUS BLOOD SPECIMENOrdering Facility: [facility] Address: [address] [place] [address] Performed By: #### 2 4344-4 ####[facility] LABIA [id number] [place] [address] [place] pH (BldV) 7.39 [pH] Normal 7.32-7.42 [facility] Comment on above: Order Comment: Speci men Type: VENOUS BLOOD SPECIMENOrdering Facility: [facility] Address: [address] [place] [address] Performed By: #### 2 4344-4 ####[facility] LABIA [id number] [place] [address] [place] Sodium [Moles/Vol] 139 mmol/L Normal 136-144 [facility] Comment on above: Order Comment: Speci men Type: VENOUS BLOOD SPECIMENOrdering Facility: [facility] Address: [address] [place] [address] Performed By: #### 2 4344-4 ####[facility] LABIA [id number] [place] [address] [place] Base excess Calc (BldV) [Moles/Vol] 4 mmol/L High 0-2 [facility] Comment on above: Order Comment: Speci men Type: VENOUS BLOOD SPECIMENOrdering Facility: [facility] Address: [address] [place] [address] Performed By: #### 2 4344-4 ####[facility] LABIA [id number] [place] [address] [place] Calcium.ionized (Bld) [Mass/Vol] 1.19 mmol/L Normal 1.08-1.30 [facility] Comment on above: Order Comment: Speci men Type: VENOUS BLOOD SPECIMENOrdering Facility: [facility] Address: [address] [place] [address] Performed By: #### 2 4344-4 ####[facility] LABIA [id number] [place] [address] [place] Calcium.ionized adjusted to pH 7.4 (BldA) [Moles/Vol] 1.18 mmol/L Normal 1.08-1.30 [facility] Comment on above: Order Comment: Speci men Type: VENOUS BLOOD SPECIMENOrdering Facility: [facility] Address: [address] [place] [address] Performed By: #### 2 4344-4 ####[facility] LABIA [id number] [place] [address] [place] Carboxyhemoglobin (BldV) [Mass fraction] 1.4 % Normal 0.0-2.0 [facility] Comment on above: Order Comment: Speci men Type: VENOUS BLOOD SPECIMENOrdering Facility: [facility] Address: [address] [place] [address] Result Comment: Carb oxyhemoglobin Reference Range for Smokers: 2.0-8.0% Performed By: #### 2 4344-4 ####[facility] LABIA [id number] [place] [address] [place] CO2 (BldV) [Partial pressure] 53 mm[Hg] Normal 42-55 [facility] Comment on above: Order Comment: Speci men Type: VENOUS BLOOD SPECIMENOrdering Facility: [facility] Address: [address] [place] [address] Performed By: #### 2 4344-4 ####[facility] LABCLIA [id number] [place] [address] [place] Glucose [Mass/Vol] 125 mg/dL High 60-105 [facility] Comment on above: Order Comment: Speci men Type: VENOUS BLOOD SPECIMENOrdering Facility: [facility] Address: [address] [place] [address] Performed By: #### 2 4344-4 ####[facility] LABCLIA [id number] [place] [address] [place] HCO3 (Bld) [Moles/Vol] 30 mmol/L High 24-28 [facility] Comment on above: Order Comment: Speci men Type: VENOUS BLOOD SPECIMENOrdering Facility: [facility] Address: [address] [place] [address] Performed By: #### 2 4344-4 ####[facility] LABCLIA [id number] [place] [address] [place] Hematocrit (Bld) [Volume fraction] 31.9 % Low 39.0-51.0 [facility] Comment on above: Order Comment: Speci men Type: VENOUS BLOOD SPECIMENOrdering Facility: [facility] Address: [address] [place] [address] Performed By: #### 2 4344-4 ####[facility] LABIA [id number] [place] [address] [place] Hemoglobin (Bld) [Mass/Vol] 10.3 g/dL Low 13.0-17.0 [facility] Comment on above: Order Comment: Speci men Type: VENOUS BLOOD SPECIMENOrdering Facility: [facility] Address: [address] [place] [address] Performed By: #### 2 4344-4 ####[facility] LABCLIA [id number] [place] [address] [place] Methemoglobin (Bld) [Mass fraction] 0.8 % Normal 0.0-1.5 [facility] Comment on above: Order Comment: Speci men Type: VENOUS BLOOD SPECIMENOrdering Facility: [facility] Address: [address] [place] [address] Performed By: #### 2 4344-4 ####[facility] LABCLIA [id number] [place] [address] [place] Oxygen (BldV) [Partial pressure] 43 mm[Hg] Normal 35-45 [facility] Comment on above: Order Comment: Speci men Type: VENOUS BLOOD SPECIMENOrdering Facility: [facility] Address: [address] [place] [address] Performed By: #### 2 4344-4 ####[facility] LABCLIA [id number] [place] [address] [place] Oxygen saturation in Venous blood 74 % Normal 60-85 [facility] Comment on above: Order Comment: Speci men Type: VENOUS BLOOD SPECIMENOrdering Facility: [facility] Address: [address] [place] [address] Performed By: #### 2 4344-4 ####[facility] LABIA [id number] [place] [address] [place] Oxyhemoglobin (BldV) [Mass fraction] 73 % Normal 60-85 [facility] Comment on above: Order Comment: Speci men Type: VENOUS BLOOD SPECIMENOrdering Facility: [facility] Address: [address] [place] [address] Performed By: #### 2 4344-4 ####[facility] LABIA [id number] [place] [address] [place] pH (BldV) 7.37 [pH] Normal 7.32-7.42 [facility] Comment on above: Order Comment: Speci men Type: VENOUS BLOOD SPECIMENOrdering Facility: [facility] Address: [address] [place], [place] [address] Performed By: #### 2 4344-4 ####[facility] LABIA [id number] [place] [id number] [place] Potassium [Moles/Vol] 4.4 mmol/L Normal 3.5-5.0 [facility] Comment on above: Order Comment: Speci men Type: VENOUS BLOOD SPECIMENOrdering Facility: [facility] Address: [address] [place] [address] Performed By: #### 2 4344-4 ####[facility] LABCLIA [id number] [place] [address] [place] Base excess Calc (BldV) [Moles/Vol] 4 mmol/L High 0-2 [facility] Comment on above: Order Comment: Speci men Type: VENOUS BLOOD SPECIMENOrdering Facility: [facility] Address: [address] [place] [address] Performed By: #### 2 4344-4 ####[facility] LABCLIA [id number] [place] [address] [place] Body temperature 98.6 [degF] Normal [facility] Comment on above: Order Comment: Speci men Type: VENOUS BLOOD SPECIMENOrdering Facility: [facility] Address: [address] [place] [address] Performed By: #### 2 4344-4 ####[facility] LABIA [id number] [place] [address] [place] Calcium.ionized (Bld) [Mass/Vol] 1.20 mmol/L Normal 1.08-1.30 [facility] Comment on above: Order Comment: Speci men Type: VENOUS BLOOD SPECIMENOrdering Facility: [facility] Address: [address] [place] [address] Performed By: #### 2 4344-4 ####[facility] LABIA [id number] [place] [address] [place] Calcium.ionized adjusted to pH 7.4 (BldA) [Moles/Vol] 1.18 mmol/L Normal 1.08-1.30 [facility] Comment on above: Order Comment: Speci men Type: VENOUS BLOOD SPECIMENOrdering Facility: [facility] Address: [address] [place] [address] Performed By: #### 2 4344-4 ####[facility] LABIA [id number] [place] [address] [place] Carboxyhemoglobin (BldV) [Mass fraction] 1.7 % Normal 0.0-2.0 [facility] Comment on above: Order Comment: Speci men Type: VENOUS BLOOD SPECIMENOrdering Facility: [facility] Address: [address] [place] [address] Result Comment: Carb oxyhemoglobin Reference Range for Smokers: 2.0-8.0% Performed By: #### 2 4344-4 ####[facility] [id number] [place] [address] [place] CO2 (BldV) [Partial pressure] 50 mm[Hg] Normal 42-55 [facility] Comment on above: Order Comment: Speci men Type: VENOUS BLOOD SPECIMENOrdering Facility: [facility] Address: [address] [place] [address] Performed By: #### 2 4344-4 ####[facility] LABIA [id number] [place] [address] [place] Glucose [Mass/Vol] 126 mg/dL High 60-105 [facility] Comment on above: Order Comment: Speci men Type: VENOUS BLOOD SPECIMENOrdering Facility: [facility] Address: [address] [place] [address] Performed By: #### 2 4344-4 ####[facility] [id number] [place] [address] [place] HCO3 (Bld) [Moles/Vol] 29 mmol/L High 24-28 [facility] Comment on above: Order Comment: Speci men Type: VENOUS BLOOD SPECIMENOrdering Facility: [facility] Address: [address] [place] [address] Performed By: #### 2 4344-4 ####[facility] LABCLIA [id number] [place] [address] [place] Hematocrit (Bld) [Volume fraction] 31.8 % Low 39.0-51.0 [facility] Comment on above: Order Comment: Speci men Type: VENOUS BLOOD SPECIMENOrdering Facility: [facility] Address: [address] [place] [address] Performed By: #### 2 4344-4 ####[facility] LABIA [id number] [place] [address] [place] Hemoglobin (Bld) [Mass/Vol] 10.3 g/dL Low 13.0-17.0 [facility] Comment on above: Order Comment: Speci men Type: VENOUS BLOOD SPECIMENOrdering Facility: [facility] Address: [address] [place] [address] Performed By: #### 2 4344-4 ####[facility] LABIA [id number] [place] [address] [place] Lactate [Moles/Vol] 1.2 mmol/L Normal 0.5-2.2 [facility] Comment on above: Order Comment: Speci men Type: VENOUS BLOOD SPECIMENOrdering Facility: [facility] Address: [address] [place] [address] Performed By: #### 2 4344-4 ####[facility] LABIA [id number] [place] [address] [place] LITERS 3 Liters/min Normal [facility] Comment on above: Order Comment: Speci men Type: VENOUS BLOOD SPECIMENOrdering Facility: [facility] Address: [address] [place] [address] Performed By: #### 2 4344-4 ####[facility] LABIA [id number] [place] [address] [place] Methemoglobin (Bld) [Mass fraction] 0.9 % Normal 0.0-1.5 [facility] Comment on above: Order Comment: Speci men Type: VENOUS BLOOD SPECIMENOrdering Facility: [facility] Address: [address] [place] [address] Performed By: #### 2 4344-4 ####[facility] LABCLIA [id number] [address] [address] [place] O2 THERAPY NC = Nasal Cannula Normal [facility] Comment on above: Order Comment: Speci men Type: VENOUS BLOOD SPECIMENOrdering Facility: [facility] Address: [address] [place], [place] [address] Performed By: #### 2 4344-4 ####[facility] LABCLIA [id number] [address] [address] [place] Oxygen (BldV) [Partial pressure] 47 mm[Hg] High 35-45 [facility] Comment on above: Order Comment: Speci men Type: VENOUS BLOOD SPECIMENOrdering Facility: [facility] Address: [address] [place] [address] Performed By: #### 2 4344-4 ####[facility] LABCLIA [id number] [address] [address] [place] Oxygen saturation in Venous blood 81 % Normal 60-85 [facility] Comment on above: Order Comment: Speci men Type: VENOUS BLOOD SPECIMENOrdering Facility: [facility] Address: [address] [place] [address] Performed By: #### 2 4344-4 ####[facility] LABCLIA [id number] [address] [address] [place] Oxyhemoglobin (BldV) [Mass fraction] 79 % Normal 60-85 [facility] Comment on above: Order Comment: Speci men Type: VENOUS BLOOD SPECIMENOrdering Facility: [facility] Address: [address] [place] [address] Performed By: #### 2 4344-4 ####[facility] LABCLIA [id number] [place] [address] [place] pH (BldV) 7.38 [pH] Normal 7.32-7.42 [facility] Comment on above: Order Comment: Speci men Type: VENOUS BLOOD SPECIMENOrdering Facility: [facility] Address: [address] [place] [address] Performed By: #### 2 4344-4 ####[facility] [id number] [place] [address] [place] Sodium [Moles/Vol] 139 mmol/L Normal 136-144 [facility] Comment on above: Order Comment: Speci men Type: VENOUS BLOOD SPECIMENOrdering Facility: [facility] Address: [address] [place] [address] Performed By: #### 2 4344-4 ####[facility] [id number] [place] [address] [place] Base excess Calc (BldV) [Moles/Vol] 3 mmol/L High 0-2 [facility] Comment on above: Order Comment: Speci men Type: VENOUS BLOOD SPECIMENOrdering Facility: [facility] Address: [address] [place] [address] Performed By: #### 2 4344-4 ####[facility] [id number] [place] [address] [place] Calcium.ionized (Bld) [Mass/Vol] 1.17 mmol/L Normal 1.08-1.30 [facility] Comment on above: Order Comment: Speci men Type: VENOUS BLOOD SPECIMENOrdering Facility: [facility] Address: [address] [place] [address] Performed By: #### 2 4344-4 ####[facility] [id number] [place] [address] [place] Calcium.ionized adjusted to pH 7.4 (BldA) [Moles/Vol] 1.16 mmol/L Normal 1.08-1.30 [facility] Comment on above: Order Comment: Speci men Type: VENOUS BLOOD SPECIMENOrdering Facility: [facility] Address: [address] [place] [address] Performed By: #### 2 4344-4 ####[facility] LABCLIA [id number] [place] [address] [place] Carboxyhemoglobin (BldV) [Mass fraction] 1.2 % Normal 0.0-2.0 [facility] Comment on above: Order Comment: Speci men Type: VENOUS BLOOD SPECIMENOrdering Facility: [facility] Address: [address] [place] [address] Result Comment: Carb oxyhemoglobin Reference Range for Smokers: 2.0-8.0% Performed By: #### 2 4344-4 ####[facility] LABCLIA [id number] [place] [address] [place] CO2 (BldV) [Partial pressure] 49 mm[Hg] Normal 42-55 [facility] Comment on above: Order Comment: Speci men Type: VENOUS BLOOD SPECIMENOrdering Facility: [facility] Address: [address] [place] [address] Performed By: #### 2 4344-4 ####[facility] LABCLIA [id number] [place] [address] [place] Glucose [Mass/Vol] 132 mg/dL High 60-105 [facility] Comment on above: Order Comment: Speci men Type: VENOUS BLOOD SPECIMENOrdering Facility: [facility] Address: [address] [place] [address] Performed By: #### 2 4344-4 ####[facility] LABCLIA [id number] [place] [address] [place] Hematocrit (Bld) [Volume fraction] 32.4 % Low 39.0-51.0 [facility] Comment on above: Order Comment: Speci men Type: VENOUS BLOOD SPECIMENOrdering Facility: [facility] Address: [address] [place] [id number] Performed By: #### 2 4344-4 ####[facility] LABCLIA [id number] [place] [address] [place] Hemoglobin (Bld) [Mass/Vol] 10.5 g/dL Low 13.0-17.0 [facility] Comment on above: Order Comment: Speci men Type: VENOUS BLOOD SPECIMENOrdering Facility: [facility] Address: [address] [place], [place] [address] Performed By: #### 2 4344-4 ####[facility] LABCLIA [id number] [place] [address] [place] Methemoglobin (Bld) [Mass fraction] 0.6 % Normal 0.0-1.5 [facility] Comment on above: Order Comment: Speci men Type: VENOUS BLOOD SPECIMENOrdering Facility: [facility] Address: [address] [place] [address] Performed By: #### 2 4344-4 ####[facility] LABCLIA [id number] [place] [address] [place] Oxygen (BldV) [Partial pressure] 44 mm[Hg] Normal 35-45 [facility] Comment on above: Order Comment: Speci men Type: VENOUS BLOOD SPECIMENOrdering Facility: [facility] Address: [address] [place], [place] [address] Performed By: #### 2 4344-4 ####[facility] LABCLIA [id number] [place] [id number] [place] Oxygen saturation in Venous blood 78 % Normal 60-85 [facility] Comment on above: Order Comment: Speci men Type: VENOUS BLOOD SPECIMENOrdering Facility: [facility] Address: [address] [place], [place] [address] Performed By: #### 2 4344-4 ####[facility] LABCLIA [id number] [place] [address] [place] Oxyhemoglobin (BldV) [Mass fraction] 77 % Normal 60-85 [facility] Comment on above: Order Comment: Speci men Type: VENOUS BLOOD SPECIMENOrdering Facility: [facility] Address: [address] [place] [address] Performed By: #### 2 4344-4 ####[facility] LABIA [id number] [place] [address] [place] pH (BldV) 7.38 [pH] Normal 7.32-7.42 [facility] Comment on above: Order Comment: Speci men Type: VENOUS BLOOD SPECIMENOrdering Facility: [facility] Address: [address] [place] [address] Performed By: #### 2 4344-4 ####[facility] LABIA [id number] [place] [address] [place] Base excess Calc (BldV) [Moles/Vol] 4 mmol/L High 0-2 [facility] Comment on above: Order Comment: Speci men Type: VENOUS BLOOD SPECIMENOrdering Facility: [facility] Address: [address] [place] [address] Performed By: #### 2 4344-4 ####[facility] LABIA [id number] [place] [address] [place] Calcium.ionized (Bld) [Mass/Vol] 1.19 mmol/L Normal 1.08-1.30 [facility] Comment on above: Order Comment: Speci men Type: VENOUS BLOOD SPECIMENOrdering Facility: [facility] Address: [address] [place] [address] Performed By: #### 2 4344-4 ####[facility] LABIA [id number] [place] [address] [place] Calcium.ionized adjusted to pH 7.4 (BldA) [Moles/Vol] 1.19 mmol/L Normal 1.08-1.30 [facility] Comment on above: Order Comment: Speci men Type: VENOUS BLOOD SPECIMENOrdering Facility: [facility] Address: [address] [place] [address] Performed By: #### 2 4344-4 ####[facility] LABCLIA [id number] [place] [address] [place] Carboxyhemoglobin (BldV) [Mass fraction] 1.3 % Normal 0.0-2.0 [facility] Comment on above: Order Comment: Speci men Type: VENOUS BLOOD SPECIMENOrdering Facility: [facility] Address: [address] [place] [address] Result Comment: Carb oxyhemoglobin Reference Range for Smokers: 2.0-8.0% Performed By: #### 2 4344-4 ####[facility] LABCLIA [id number] [place] [address] [place] CO2 (BldV) [Partial pressure] 47 mm[Hg] Normal 42-55 [facility] Comment on above: Order Comment: Speci men Type: VENOUS BLOOD SPECIMENOrdering Facility: [facility] Address: [address] [place] [address] Performed By: #### 2 4344-4 ####[facility] LABCLIA [id number] [place] [address] [place] Glucose [Mass/Vol] 127 mg/dL High 60-105 [facility] Comment on above: Order Comment: Speci men Type: VENOUS BLOOD SPECIMENOrdering Facility: [facility] Address: [address] [place] [address] Performed By: #### 2 4344-4 ####[facility] LABCLIA [id number] [place] [address] [place] HCO3 (Bld) [Moles/Vol] 29 mmol/L High 24-28 [facility] Comment on above: Order Comment: Speci men Type: VENOUS BLOOD SPECIMENOrdering Facility: [facility] Address: [address] [place] [address] Performed By: #### 2 4344-4 ####[facility] LABCLIA [id number] [place] [address] [place] Hematocrit (Bld) [Volume fraction] 32.1 % Low 39.0-51.0 [facility] Comment on above: Order Comment: Speci men Type: VENOUS BLOOD SPECIMENOrdering Facility: [facility] Address: [address] [place] [address] Performed By: #### 2 4344-4 ####[facility] LABCLIA [id number] [place] [address] [place] Hemoglobin (Bld) [Mass/Vol] 10.4 g/dL Low 13.0-17.0 [facility] Comment on above: Order Comment: Speci men Type: VENOUS BLOOD SPECIMENOrdering Facility: [facility] Address: [address] [place] [address] Performed By: #### 2 4344-4 ####[facility] LABCLIA [id number] [place] [address] [place] Methemoglobin (Bld) [Mass fraction] 0.8 % Normal 0.0-1.5 [facility] Comment on above: Order Comment: Speci men Type: VENOUS BLOOD SPECIMENOrdering Facility: [facility] Address: [address] [place] [address] Performed By: #### 2 4344-4 ####[facility] LABCLIA [id number] [place] [id number] [place] Oxygen (BldV) [Partial pressure] 41 mm[Hg] Normal 35-45 [facility] Comment on above: Order Comment: Speci men Type: VENOUS BLOOD SPECIMENOrdering Facility: [facility] Address: [address] [place] [address] Performed By: #### 2 4344-4 ####[facility] LABCLIA [id number] [place] [address] [place] Oxygen saturation in Venous blood 73 % Normal 60-85 [facility] Comment on above: Order Comment: Speci men Type: VENOUS BLOOD SPECIMENOrdering Facility: [facility] Address: [address] [place] [address] Performed By: #### 2 4344-4 ####[facility] LABCLIA [id number] [place] [address] [place] Oxyhemoglobin (BldV) [Mass fraction] 71 % Normal 60-85 [facility] Comment on above: Order Comment: Speci men Type: VENOUS BLOOD SPECIMENOrdering Facility: [facility] Address: [address] [place] [address] Performed By: #### 2 4344-4 ####[facility] LABIA [id number] [place] [address] [place] pH (BldV) 7.41 [pH] Normal 7.32-7.42 [facility] Comment on above: Order Comment: Speci men Type: VENOUS BLOOD SPECIMENOrdering Facility: [facility] Address: [address] [place] [address] Performed By: #### 2 4344-4 ####[facility] LABIA [id number] [place] [address] [place] Base excess Calc (BldV) [Moles/Vol] 5 mmol/L High 0-2 [facility] Comment on above: Order Comment: Speci men Type: VENOUS BLOOD SPECIMENOrdering Facility: [facility] Address: [address] [place] [address] Performed By: #### 2 4344-4 ####[facility] LABCLIA [id number] [place] [address] [place] Calcium.ionized adjusted to pH 7.4 (BldA) [Moles/Vol] 1.19 mmol/L Normal 1.08-1.30 [facility] Comment on above: Order Comment: Speci men Type: VENOUS BLOOD SPECIMENOrdering Facility: [facility] Address: [address] [place] [address] Performed By: #### 2 4344-4 ####[facility] LABCLIA [id number] [place] [address] [place] Carboxyhemoglobin (BldV) [Mass fraction] 1.4 % Normal 0.0-2.0 [facility] Comment on above: Order Comment: Speci men Type: VENOUS BLOOD SPECIMENOrdering Facility: [facility] Address: [address] [place] [address] Result Comment: Carb oxyhemoglobin Reference Range for Smokers: 2.0-8.0% Performed By: #### 2 4344-4 ####[facility] LABCLIA [id number] [place] [address] [place] CO2 (BldV) [Partial pressure] 45 mm[Hg] Normal 42-55 [facility] Comment on above: Order Comment: Speci men Type: VENOUS BLOOD SPECIMENOrdering Facility: [facility] Address: [address] [place] [address] Performed By: #### 2 4344-4 ####[facility] LABCLIA [id number] [place] [address] [place] Glucose [Mass/Vol] 99 mg/dL Normal 60-105 [facility] Comment on above: Order Comment: Speci men Type: VENOUS BLOOD SPECIMENOrdering Facility: [facility] Address: [address] [place] [address] Performed By: #### 2 4344-4 ####[facility] LABCLIA [id number] [place] [address] [place] HCO3 (Bld) [Moles/Vol] 29 mmol/L High 24-28 [facility] Comment on above: Order Comment: Speci men Type: VENOUS BLOOD SPECIMENOrdering Facility: [facility] Address: [address] [place] [address] Performed By: #### 2 4344-4 ####[facility] LABCLIA [id number] [place] [address] [place] Hematocrit (Bld) [Volume fraction] 32.5 % Low 39.0-51.0 [facility] Comment on above: Order Comment: Speci men Type: VENOUS BLOOD SPECIMENOrdering Facility: [facility] Address: [address] [place] [address] Performed By: #### 2 4344-4 ####[facility] LABIA [id number] [place] [address] [place] Hemoglobin (Bld) [Mass/Vol] 10.5 g/dL Low 13.0-17.0 [facility] Comment on above: Order Comment: Speci men Type: VENOUS BLOOD SPECIMENOrdering Facility: [facility] Address: [address] [place] [address] Performed By: #### 2 4344-4 ####[facility] LABIA [id number] [place] [address] [place] Lactate [Moles/Vol] 1.1 mmol/L Normal 0.5-2.2 [facility] Comment on above: Order Comment: Speci men Type: VENOUS BLOOD SPECIMENOrdering Facility: [facility] Address: [address] [place] [address] Performed By: #### 2 4344-4 ####[facility] LABCLIA [id number] [place] [address] [place] Oxygen (BldV) [Partial pressure] 45 mm[Hg] Normal 35-45 [facility] Comment on above: Order Comment: Speci men Type: VENOUS BLOOD SPECIMENOrdering Facility: [facility] Address: [address] [place] [address] Performed By: #### 2 4344-4 ####[facility] LABCLIA [id number] [address] [address] [place] Oxygen saturation in Venous blood 79 % Normal 60-85 [facility] Comment on above: Order Comment: Speci men Type: VENOUS BLOOD SPECIMENOrdering Facility: [facility] Address: [address] [place], [place] [address] Performed By: #### 2 4344-4 ####[facility] LABCLIA [id number] [address] [address] [place] Oxyhemoglobin (BldV) [Mass fraction] 78 % Normal 60-85 [facility] Comment on above: Order Comment: Speci men Type: VENOUS BLOOD SPECIMENOrdering Facility: [facility] Address: [address] [place] [address] Performed By: #### 2 4344-4 ####[facility] LABCLIA [id number] [place] [address] [place] pH (BldV) 7.42 [pH] Normal 7.32-7.42 [facility] Comment on above: Order Comment: Speci men Type: VENOUS BLOOD SPECIMENOrdering Facility: [facility] Address: [address] [place], [place] [address] Performed By: #### 2 4344-4 ####[facility] LABCLIA [id number] [place] [id number] [place] Potassium [Moles/Vol] 4.0 mmol/L Normal 3.5-5.0 [facility] Comment on above: Order Comment: Speci men Type: VENOUS BLOOD SPECIMENOrdering Facility: [facility] Address: [address] [place] [address] Performed By: #### 2 4344-4 ####[facility] LABCLIA [id number] [place] [id number] [place] Sodium [Moles/Vol] 138 mmol/L Normal 136-144 [facility] Comment on above: Order Comment: Speci men Type: VENOUS BLOOD SPECIMENOrdering Facility: [facility] Address: [address] [place] [address] Performed By: #### 2 4344-4 ####[facility] [id number] [place] [address] [place] Base excess Calc (BldV) [Moles/Vol] 4 mmol/L High 0-2 [facility] Comment on above: Order Comment: Speci men Type: VENOUS BLOOD SPECIMENOrdering Facility: [facility] Address: [address] [place] [address] Performed By: #### 2 4344-4 ####[facility] [id number] [place] [address] [place] Calcium.ionized adjusted to pH 7.4 (BldA) [Moles/Vol] 1.19 mmol/L Normal 1.08-1.30 [facility] Comment on above: Order Comment: Speci men Type: VENOUS BLOOD SPECIMENOrdering Facility: [facility] Address: [address] [place] [address] Performed By: #### 2 4344-4 ####[facility] [id number] [place] [address] [place] Carboxyhemoglobin (BldV) [Mass fraction] 1.5 % Normal 0.0-2.0 [facility] Comment on above: Order Comment: Speci men Type: VENOUS BLOOD SPECIMENOrdering Facility: [facility] Address: [address] [place] [address] Result Comment: Carb oxyhemoglobin Reference Range for Smokers: 2.0-8.0% Performed By: #### 2 4344-4 ####[facility] [id number] [place] [address] [place] CO2 (BldV) [Partial pressure] 48 mm[Hg] Normal 42-55 [facility] Comment on above: Order Comment: Speci men Type: VENOUS BLOOD SPECIMENOrdering Facility: [facility] Address: [address] [place] [address] Performed By: #### 2 4344-4 ####[facility] LABCLIA [id number] [place] [address] [place] Glucose [Mass/Vol] 117 mg/dL High 60-105 [facility] Comment on above: Order Comment: Speci men Type: VENOUS BLOOD SPECIMENOrdering Facility: [facility] Address: [address] [place] [address] Performed By: #### 2 4344-4 ####[facility] LABCLIA [id number] [place] [address] [place] HCO3 (Bld) [Moles/Vol] 29 mmol/L High 24-28 [facility] Comment on above: Order Comment: Speci men Type: VENOUS BLOOD SPECIMENOrdering Facility: [facility] Address: [address] [place] [address] Performed By: #### 2 4344-4 ####[facility] LABCLIA [id number] [place] [address] [place] Hematocrit (Bld) [Volume fraction] 31.7 % Low 39.0-51.0 [facility] Comment on above: Order Comment: Speci men Type: VENOUS BLOOD SPECIMENOrdering Facility: [facility] Address: [address] [place] [address] Performed By: #### 2 4344-4 ####[facility] LABCLIA [id number] [place] [address] [place] Hemoglobin (Bld) [Mass/Vol] 10.3 g/dL Low 13.0-17.0 [facility] Comment on above: Order Comment: Speci men Type: VENOUS BLOOD SPECIMENOrdering Facility: [facility] Address: [address] [place] [id number] Performed By: #### 2 4344-4 ####[facility] LABCLIA [id number] [place] [address] [place] Lactate [Moles/Vol] 1.1 mmol/L Normal 0.5-2.2 [facility] Comment on above: Order Comment: Speci men Type: VENOUS BLOOD SPECIMENOrdering Facility: [facility] Address: [address] [place] [address] Performed By: #### 2 4344-4 ####[facility] LABCLIA [id number] [place] [address] [place] Methemoglobin (Bld) [Mass fraction] 1.4 % Normal 0.0-1.5 [facility] Comment on above: Order Comment: Speci men Type: VENOUS BLOOD SPECIMENOrdering Facility: [facility] Address: [address] [place] [address] Performed By: #### 2 4344-4 ####[facility] LABCLIA [id number] [place] [address] [place] Oxygen (BldV) [Partial pressure] 44 mm[Hg] Normal 35-45 [facility] Comment on above: Order Comment: Speci men Type: VENOUS BLOOD SPECIMENOrdering Facility: [facility] Address: [address] [place] [address] Performed By: #### 2 4344-4 ####[facility] LABCLIA [id number] [place] [address] [place] Oxygen saturation in Venous blood 77 % Normal 60-85 [facility] Comment on above: Order Comment: Speci men Type: VENOUS BLOOD SPECIMENOrdering Facility: [facility] Address: [address] [place], [place] [address] Performed By: #### 2 4344-4 ####[facility] LABCLIA [id number] [place] [address] [place] Oxyhemoglobin (BldV) [Mass fraction] 75 % Normal 60-85 [facility] Comment on above: Order Comment: Speci men Type: VENOUS BLOOD SPECIMENOrdering Facility: [facility] Address: [address] [place] [address] Performed By: #### 2 4344-4 ####[facility] LABCLIA [id number] [place] [address] [place] pH (BldV) 7.39 [pH] Normal 7.32-7.42 [facility] Comment on above: Order Comment: Speci men Type: VENOUS BLOOD SPECIMENOrdering Facility: [facility] Address: [address] [place] [address] Performed By: #### 2 4344-4 ####[facility] LABIA [id number] [place] [address] [place] Potassium [Moles/Vol] 4.2 mmol/L Normal 3.5-5.0 [facility] Comment on above: Order Comment: Speci men Type: VENOUS BLOOD SPECIMENOrdering Facility: [facility] Address: [address] [place] [address] Performed By: #### 2 4344-4 ####[facility] LABIA [id number] [place] [address] [place] Sodium [Moles/Vol] 137 mmol/L Normal 136-144 [facility] Comment on above: Order Comment: Speci men Type: VENOUS BLOOD SPECIMENOrdering Facility: [facility] Address: [address] [place] [address] Performed By: #### 2 4344-4 ####[facility] LABCLIA [id number] [place] [address] [place] Base excess Calc (BldV) [Moles/Vol] 3 mmol/L High 0-2 [facility] Comment on above: Order Comment: Speci men Type: VENOUS BLOOD SPECIMENOrdering Facility: [facility] Address: [address] [place] [address] Performed By: #### 2 4344-4 ####[facility] LABCLIA [id number] [place] [address] [place] Calcium.ionized (Bld) [Mass/Vol] 1.20 mmol/L Normal 1.08-1.30 [facility] Comment on above: Order Comment: Speci men Type: VENOUS BLOOD SPECIMENOrdering Facility: [facility] Address: [address] [place] [address] Performed By: #### 2 4344-4 ####[facility] LABIA [id number] [place] [address] [place] Carboxyhemoglobin (BldV) [Mass fraction] 1.1 % Normal 0.0-2.0 [facility] Comment on above: Order Comment: Speci men Type: VENOUS BLOOD SPECIMENOrdering Facility: [facility] Address: [address] [place] [address] Result Comment: Carb oxyhemoglobin Reference Range for Smokers: 2.0-8.0% Performed By: #### 2 4344-4 ####[facility] LABIA [id number] [place] [address] [place] CO2 (BldV) [Partial pressure] 47 mm[Hg] Normal 42-55 [facility] Comment on above: Order Comment: Speci men Type: VENOUS BLOOD SPECIMENOrdering Facility: [facility] Address: [address] [place] [address] Performed By: #### 2 4344-4 ####[facility] LABCLIA [id number] [place] [address] [place] Glucose [Mass/Vol] 111 mg/dL High 60-105 [facility] Comment on above: Order Comment: Speci men Type: VENOUS BLOOD SPECIMENOrdering Facility: [facility] Address: [address] [place] [address] Performed By: #### 2 4344-4 ####[facility] LABIA [id number] [place] [address] [place] HCO3 (Bld) [Moles/Vol] 28 mmol/L Normal 24-28 [facility] Comment on above: Order Comment: Speci men Type: VENOUS BLOOD SPECIMENOrdering Facility: [facility] Address: [address] [place] [address] Performed By: #### 2 4344-4 ####[facility] LABCLIA [id number] [place] [address] [place] Hematocrit (Bld) [Volume fraction] 31.4 % Low 39.0-51.0 [facility] Comment on above: Order Comment: Speci men Type: VENOUS BLOOD SPECIMENOrdering Facility: [facility] Address: [address] [place] [address] Performed By: #### 2 4344-4 ####[facility] LABIA [id number] [place] [address] [place] Hemoglobin (Bld) [Mass/Vol] 10.2 g/dL Low 13.0-17.0 [facility] Comment on above: Order Comment: Speci men Type: VENOUS BLOOD SPECIMENOrdering Facility: [facility] Address: [address] [place] [address] Performed By: #### 2 4344-4 ####[facility] LABIA [id number] [place] [address] [place] Methemoglobin (Bld) [Mass fraction] 0.6 % Normal 0.0-1.5 [facility] Comment on above: Order Comment: Speci men Type: VENOUS BLOOD SPECIMENOrdering Facility: [facility] Address: [address] [place] [address] Performed By: #### 2 4344-4 ####[facility] LABIA [id number] [place] [address] [place] Oxygen (BldV) [Partial pressure] 44 mm[Hg] Normal 35-45 [facility] Comment on above: Order Comment: Speci men Type: VENOUS BLOOD SPECIMENOrdering Facility: [facility] Address: [address] [id number] Performed By: #### 2 4344-4 ####[facility] LABIA [id number] [place] [address] [place] Oxygen saturation in Venous blood 77 % Normal 60-85 [facility] Comment on above: Order Comment: Speci men Type: VENOUS BLOOD SPECIMENOrdering Facility: [facility] Address: [address] [place] [address] Performed By: #### 2 4344-4 ####[facility] LABIA [id number] [place] [address] [place] Oxyhemoglobin (BldV) [Mass fraction] 76 % Normal 60-85 [facility] Comment on above: Order Comment: Speci men Type: VENOUS BLOOD SPECIMENOrdering Facility: [facility] Address: [address] [place] [address] Performed By: #### 2 4344-4 ####[facility] LABIA [id number] [place] [address] [place] pH (BldV) 7.39 [pH] Normal 7.32-7.42 [facility] Comment on above: Order Comment: Speci men Type: VENOUS BLOOD SPECIMENOrdering Facility: [facility] Address: [address] [place] [address] Performed By: #### 2 4344-4 ####[facility] LABIA [id number] [place] [address] [place] Base excess Calc (BldV) [Moles/Vol] 2 mmol/L Normal 0-2 [facility] Comment on above: Order Comment: Speci men Type: VENOUS BLOOD SPECIMENOrdering Facility: [facility] Address: [address] [place] [address] Performed By: #### 2 4344-4 ####[facility] LABIA [id number] [place] [address] [place] Calcium.ionized (Bld) [Mass/Vol] 1.19 mmol/L Normal 1.08-1.30 [facility] Comment on above: Order Comment: Speci men Type: VENOUS BLOOD SPECIMENOrdering Facility: [facility] Address: [address] [place] [address] Performed By: #### 2 4344-4 ####[facility] LABIA [id number] [place] [address] [place] Calcium.ionized adjusted to pH 7.4 (BldA) [Moles/Vol] 1.18 mmol/L Normal 1.08-1.30 [facility] Comment on above: Order Comment: Speci men Type: VENOUS BLOOD SPECIMENOrdering Facility: [facility] Address: [address] [place] [address] Performed By: #### 2 4344-4 ####[facility] [id number] [place] [address] [place] Carboxyhemoglobin (BldV) [Mass fraction] 1.7 % Normal 0.0-2.0 [facility] Comment on above: Order Comment: Speci men Type: VENOUS BLOOD SPECIMENOrdering Facility: [facility] Address: [address] [place] [address] Result Comment: Carb oxyhemoglobin Reference Range for Smokers: 2.0-8.0% Performed By: #### 2 4344-4 ####[facility] LABIA [id number] [place] [address] [place] CO2 (BldV) [Partial pressure] 46 mm[Hg] Normal 42-55 [facility] Comment on above: Order Comment: Speci men Type: VENOUS BLOOD SPECIMENOrdering Facility: [facility] Address: [address] [place] [address] Performed By: #### 2 4344-4 ####[facility] LABIA [id number] [place] [address] [place] HCO3 (Bld) [Moles/Vol] 27 mmol/L Normal 24-28 [facility] Comment on above: Order Comment: Speci men Type: VENOUS BLOOD SPECIMENOrdering Facility: [facility] Address: [address] [place] [address] Performed By: #### 2 4344-4 ####[facility] LABIA [id number] [place] [address] [place] Hematocrit (Bld) [Volume fraction] 31.7 % Low 39.0-51.0 [facility] Comment on above: Order Comment: Speci men Type: VENOUS BLOOD SPECIMENOrdering Facility: [facility] Address: [address] [place] [address] Performed By: #### 2 4344-4 ####[facility] LABIA [id number] [place] [address] [place] Lactate [Moles/Vol] 1.9 mmol/L Normal 0.5-2.2 [facility] Comment on above: Order Comment: Speci men Type: VENOUS BLOOD SPECIMENOrdering Facility: [facility] Address: [address] [place] [address] Performed By: #### 2 4344-4 ####[facility] LABIA [id number] [place] [address] [place] Methemoglobin (Bld) [Mass fraction] 0.9 % Normal 0.0-1.5 [facility] Comment on above: Order Comment: Speci men Type: VENOUS BLOOD SPECIMENOrdering Facility: [facility] Address: [address] [place] [address] Performed By: #### 2 4344-4 ####[facility] LABIA [id number] [place] [address] [place] Oxygen (BldV) [Partial pressure] 47 mm[Hg] High 35-45 [facility] Comment on above: Order Comment: Speci men Type: VENOUS BLOOD SPECIMENOrdering Facility: [facility] Address: [address] [place] [address] Performed By: #### 2 4344-4 ####[facility] LABCLIA [id number] [address] [address] [place] Oxygen saturation in Venous blood 81 % Normal 60-85 [facility] Comment on above: Order Comment: Speci men Type: VENOUS BLOOD SPECIMENOrdering Facility: [facility] Address: [address] [place] [address] Performed By: #### 2 4344-4 ####[facility] LABCLIA [id number] [place] [address] [place] Oxyhemoglobin (BldV) [Mass fraction] 79 % Normal 60-85 [facility] Comment on above: Order Comment: Speci men Type: VENOUS BLOOD SPECIMENOrdering Facility: [facility] Address: [address] [place] [address] Performed By: #### 2 4344-4 ####[facility] LABIA [id number] [place] [address] [place] pH (BldV) 7.39 [pH] Normal 7.32-7.42 [facility] Comment on above: Order Comment: Speci men Type: VENOUS BLOOD SPECIMENOrdering Facility: [facility] Address: [address] [place] [address] Performed By: #### 2 4344-4 ####[facility] LABCLIA [id number] [place] [address] [place] Potassium [Moles/Vol] 4.1 mmol/L Normal 3.5-5.0 [facility] Comment on above: Order Comment: Speci men Type: VENOUS BLOOD SPECIMENOrdering Facility: [facility] Address: [address] [place] [address] Performed By: #### 2 4344-4 ####[facility] LABCLIA [id number] [place] [address] [place] XR CHEST 1V FRONTAL PORTon 1 XR CHEST 1V FRONTAL PORT Normal [facility] ARTERIAL BLOOD GASESon 01-23 Base excess Calc (Bld) [Moles/Vol] 2 mmol/L Normal 0-2 [facility] Comment on above: Order Comment: Speci men Type: ARTERIAL BLOOD SPECIMENOrdering Facility: [facility] Address: [address] [place] [address] Performed By: #### A LLBG ####[facility] LABCLIA [id number] [place] [address] [place] Calcium.ionized (Bld) [Mass/Vol] 1.20 mmol/L Normal 1.08-1.30 [facility] Comment on above: Order Comment: Speci men Type: ARTERIAL BLOOD SPECIMENOrdering Facility: [facility] Address: [address] [place] [address] Performed By: #### A LLBG ####[facility] LABCLIA [id number] [place] [address] [place] Calcium.ionized adjusted to pH 7.4 (BldA) [Moles/Vol] 1.20 mmol/L Normal 1.08-1.30 [facility] Comment on above: Order Comment: Speci men Type: ARTERIAL BLOOD SPECIMENOrdering Facility: [facility] Address: [address] [place] [address] Performed By: #### A LLBG ####[facility] LABCLIA [id number] [place] [address] [place] Carboxyhemoglobin (BldA) [Mass fraction] 0.9 % Normal 0.0-2.0 [facility] Comment on above: Order Comment: Speci men Type: ARTERIAL BLOOD SPECIMENOrdering Facility: [facility] Address: [address] [place] [address] Result Comment: Carb oxyhemoglobin Reference Range for Smokers: 2.0-8.0% Performed By: #### A LLBG ####[facility] LABCLIA [id number] [place] [address] [place] CO2 (Bld) [Partial pressure] 43 mm Hg Normal 36-46 [facility] Comment on above: Order Comment: Speci men Type: ARTERIAL BLOOD SPECIMENOrdering Facility: [facility] Address: [address] [place] [address] Performed By: #### A LLBG ####[facility] LABIA [id number] [place] [address] [place] Glucose [Mass/Vol] 134 mg/dL High 74-99 [facility] Comment on above: Order Comment: Speci men Type: ARTERIAL BLOOD SPECIMENOrdering Facility: [facility] Address: [address] [place] [address] Performed By: #### A LLBG ####[facility] LABIA [id number] [address] [place] Order Comment: Speci men Type: BLOOD SPECIMENOrdering Facility: [facility] Address: [address] [place] [address] Result Comment: The [place] [employer] (ADA) provides guidance for cutoff [...] Standards of Medical Care in Diabetes 2016, [place] [employer]. Diabetes Care. 2016.39(Suppl 1). Performed By: #### 2 4323-8, HSTNT ####[facility] LABIA [id number] [place] [address] [place] HCO3 (Bld) [Moles/Vol] 26 mmol/L Normal 22-26 [facility] Comment on above: Order Comment: Speci men Type: ARTERIAL BLOOD SPECIMENOrdering Facility: [facility] Address: [address] [place] [address] Performed By: #### A LLBG ####[facility] LABCLIA [id number] [place] [id number] [place] Lactate [Moles/Vol] 1.6 mmol/L Normal 0.5-2.2 [facility] Comment on above: Order Comment: Speci men Type: ARTERIAL BLOOD SPECIMENOrdering Facility: [facility] Address: [address] [place] [address] Performed By: #### A LLBG ####[facility] LABCLIA [id number] [place] [address] [place] Methemoglobin (Bld) [Mass fraction] 0.5 % Normal 0.0-1.5 [facility] Comment on above: Order Comment: Speci men Type: ARTERIAL BLOOD SPECIMENOrdering Facility: [facility] Address: [address] [place] [address] Performed By: #### A LLBG ####[facility] LABCLIA [id number] [place] [address] [place] Oxygen (Bld) [Partial pressure] 141 mm Hg High 85-95 [facility] Comment on above: Order Comment: Speci men Type: ARTERIAL BLOOD SPECIMENOrdering Facility: [facility] Address: [address] [place] [address] Performed By: #### A LLBG ####[facility] LABCLIA [id number] [place] [id number] [place] Oxyhemoglobin (BldA) [Mass fraction] 98 % Normal 95-98 [facility] Comment on above: Order Comment: Speci men Type: ARTERIAL BLOOD SPECIMENOrdering Facility: [facility] Address: [address] [place], [place] [address] Performed By: #### A LLBG ####[facility] LABCLIA [id number] [place] [address] [place] PEEP/CPAP 8 cmH2O Normal [facility] Comment on above: Order Comment: Speci men Type: ARTERIAL BLOOD SPECIMENOrdering Facility: [facility] Address: [address] [place] [address] Performed By: #### A LLBG ####[facility] LABCLIA [id number] [place] [address] [place] pH (Bld) 7.40 [pH] Normal 7.35-7.45 [facility] Comment on above: Order Comment: Speci men Type: ARTERIAL BLOOD SPECIMENOrdering Facility: [facility] Address: [address] [place] [address] Performed By: #### A LLBG ####[facility] LABCLIA [id number] [place] [address] [place] PO2 / FIO2 RATIO 470 mmHg Normal >300 [facility] Comment on above: Order Comment: Speci men Type: ARTERIAL BLOOD SPECIMENOrdering Facility: [facility] Address: [address] [place] [address] Performed By: #### A LLBG ####[facility] LABCLIA [id number] [place] [address] [place] Potassium [Moles/Vol] 4.3 mmol/L Normal 3.5-5.0 [facility] Comment on above: Order Comment: Speci men Type: ARTERIAL BLOOD SPECIMENOrdering Facility: [facility] Address: [address] [place] [address] Performed By: #### A LLBG ####[facility] LABCLIA [id number] [place] [address] [place] Sodium [Moles/Vol] 137 mmol/L Normal 136-144 [facility] Comment on above: Order Comment: Speci men Type: ARTERIAL BLOOD SPECIMENOrdering Facility: [facility] Address: [address] [place] [address] Performed By: #### A LLBG ####[facility] LABCLIA [id number] [place] [address] [place] Base excess Calc (Bld) [Moles/Vol] 3 mmol/L High 0-2 [facility] Comment on above: Order Comment: Speci men Type: ARTERIAL BLOOD SPECIMENOrdering Facility: [facility] Address: [address] [place] [address] Performed By: #### A LLBG ####[facility] LABCLIA [id number] [place] [address] [place] Body temperature 98.24 [degF] Normal [facility] Comment on above: Order Comment: Speci men Type: ARTERIAL BLOOD SPECIMENOrdering Facility: [facility] Address: [address] [place] [address] Performed By: #### A LLBG ####[facility] LABCLIA [id number] [place] [address] [place] Order Comment: Speci men Type: VENOUS BLOOD SPECIMENOrdering Facility: [facility] Address: [address] [place] [address] Performed By: #### 2 4344-4 ####[facility] LABIA [id number] [place] [address] [place] Calcium.ionized (Bld) [Mass/Vol] 1.18 mmol/L Normal 1.08-1.30 [facility] Comment on above: Order Comment: Speci men Type: ARTERIAL BLOOD SPECIMENOrdering Facility: [facility] Address: [address] [place] [address] Performed By: #### A LLBG ####[facility] LABCLIA [id number] [place] [address] [place] Calcium.ionized adjusted to pH 7.4 (BldA) [Moles/Vol] 1.21 mmol/L Normal 1.08-1.30 [facility] Comment on above: Order Comment: Speci men Type: ARTERIAL BLOOD SPECIMENOrdering Facility: [facility] Address: [address] [place] [address] Performed By: #### A LLBG ####[facility] LABCLIA [id number] [place] [address] [place] Carboxyhemoglobin (BldA) [Mass fraction] 1.6 % Normal 0.0-2.0 [facility] Comment on above: Order Comment: Speci men Type: ARTERIAL BLOOD SPECIMENOrdering Facility: [facility] Address: [address] [place] [address] Result Comment: Carb oxyhemoglobin Reference Range for Smokers: 2.0-8.0% Performed By: #### A LLBG ####[facility] LABCLIA [id number] [place] [address] [place] CO2 (Bld) [Partial pressure] 39 mm Hg Normal 36-46 [facility] Comment on above: Order Comment: Speci men Type: ARTERIAL BLOOD SPECIMENOrdering Facility: [facility] Address: [address] [place] [address] Performed By: #### A LLBG ####[facility] LABCLIA [id number] [place] [address] [place] CO2 adjusted to patient's actual temperature (Bld) [Partial pressure] 39 mmHg Normal 36-46 [facility] Comment on above: Order Comment: Speci men Type: ARTERIAL BLOOD SPECIMENOrdering Facility: [facility] Address: [address] [place] [address] Performed By: #### A LLBG ####[facility] LABCLIA [id number] [place] [address] [place] FIO2 30 % Normal [facility] Comment on above: Order Comment: Speci men Type: ARTERIAL BLOOD SPECIMENOrdering Facility: [facility] Address: [address] [place] [address] Performed By: #### A LLBG ####[facility] LABCLIA [id number] [place] [address] [place] Order Comment: Speci men Type: VENOUS BLOOD SPECIMENOrdering Facility: [facility] Address: [address] [place], [place] [address] Performed By: #### 2 4344-4 ####[facility] LABCLIA [id number] [place] [address] [place] Glucose [Mass/Vol] 137 mg/dL High 60-105 [facility] Comment on above: Order Comment: Speci men Type: ARTERIAL BLOOD SPECIMENOrdering Facility: [facility] Address: [address] [place] [address] Performed By: #### A LLBG ####[facility] LABCLIA [id number] [place] [address] [place] Order Comment: Speci men Type: VENOUS BLOOD SPECIMENOrdering Facility: [facility] Address: [address] [place] [address] Performed By: #### 2 4344-4 ####[facility] LABCLIA [id number] [place] [address] [place] HCO3 (Bld) [Moles/Vol] 27 mmol/L Normal 24-28 [facility] Comment on above: Order Comment: Speci men Type: ARTERIAL BLOOD SPECIMENOrdering Facility: [facility] Address: [address] [place] [address] Performed By: #### A LLBG ####[facility] LABCLIA [id number] [place] [address] [place] Order Comment: Speci men Type: VENOUS BLOOD SPECIMENOrdering Facility: [facility] Address: [address] [place], [place] [address] Performed By: #### 2 4344-4 ####[facility] LABCLIA [id number] [place] [address] [place] Hematocrit (Bld) [Volume fraction] 32.6 % Low 39.0-51.0 [facility] Comment on above: Order Comment: Speci men Type: ARTERIAL BLOOD SPECIMENOrdering Facility: [facility] Address: [address] [place] [address] Performed By: #### A LLBG ####[facility] LABCLIA [id number] [place] [address] [place] Order Comment: Speci men Type: VENOUS BLOOD SPECIMENOrdering Facility: [facility] Address: [address] [place] [address] Performed By: #### 2 4344-4 ####[facility] LABCLIA [id number] [place] [address] [place] Hemoglobin (Bld) [Mass/Vol] 10.5 g/dL Low 13.0-17.0 [facility] Comment on above: Order Comment: Speci men Type: ARTERIAL BLOOD SPECIMENOrdering Facility: [facility] Address: [address] [place] [address] Performed By: #### A LLBG ####[facility] LABCLIA [id number] [place] [address] [place] Lactate [Moles/Vol] 2.3 mmol/L High 0.5-2.2 [facility] Comment on above: Order Comment: Speci men Type: ARTERIAL BLOOD SPECIMENOrdering Facility: [facility] Address: [address] [place] [address] Performed By: #### A LLBG ####[facility] LABCLIA [id number] [place] [address] [place] Methemoglobin (Bld) [Mass fraction] 1.0 % Normal 0.0-1.5 [facility] Comment on above: Order Comment: Speci men Type: ARTERIAL BLOOD SPECIMENOrdering Facility: [facility] Address: [address] [place] [address] [place] [address] Performed By: #### A LLBG ####[facility] LABCLIA [id number] [address] [address] [place] O2 THERAPY VENT=Ventilator Normal [facility] Comment on above: Order Comment: Speci men Type: ARTERIAL BLOOD SPECIMENOrdering Facility: [facility] Address: [address] [place] [id number] Performed By: #### A LLBG ####[facility] LABCLIA [id number] [address] [address] [place] Order Comment: Speci men Type: VENOUS BLOOD SPECIMENOrdering Facility: [facility] Address: [address] [place] [id number] Performed By: #### 2 4344-4 ####[facility] LABCLIA [id number] [address] [address] [place] Oxygen (Bld) [Partial pressure] 142 mm Hg High 85-95 [facility] Comment on above: Order Comment: Speci men Type: ARTERIAL BLOOD SPECIMENOrdering Facility: [facility] Address: [address] [place] [address] Performed By: #### A LLBG ####[facility] LABCLIA [id number] [address] [address] [place] Oxygen adjusted to patient's actual temperature (Bld) [Partial pressure] 141 mmHg High 85-95 [facility] Comment on above: Order Comment: Speci men Type: ARTERIAL BLOOD SPECIMENOrdering Facility: [facility] Address: [address] [place] [address] Performed By: #### A LLBG ####[facility] LABCLIA [id number] [address] [address] [place] Oxyhemoglobin (BldA) [Mass fraction] 97 % Normal 95-98 [facility] Comment on above: Order Comment: Speci men Type: ARTERIAL BLOOD SPECIMENOrdering Facility: [facility] Address: [address] [place] [address] Performed By: #### A LLBG ####[facility] LABCLIA [id number] [place] [address] [place] PEEP/CPAP 10 cmH2O Normal [facility] Comment on above: Order Comment: Speci men Type: ARTERIAL BLOOD SPECIMENOrdering Facility: [facility] Address: [address] [place] [address] Performed By: #### A LLBG ####[facility] LABCLIA [id number] [place] [address] [place] pH (Bld) 7.46 [pH] High 7.35-7.45 [facility] Comment on above: Order Comment: Speci men Type: ARTERIAL BLOOD SPECIMENOrdering Facility: [facility] Address: [address] [place] [address] Performed By: #### A LLBG ####[facility] LABIA [id number] [place] [address] [place] pH adjusted to patient's actual temperature (Bld) 7.46 High 7.35-7.45 [facility] Comment on above: Order Comment: Speci men Type: ARTERIAL BLOOD SPECIMENOrdering Facility: [facility] Address: [address] [place] [address] Performed By: #### A LLBG ####[facility] LABCLIA [id number] [place] [address] [place] PO2 / FIO2 RATIO 473 mmHg Normal >300 [facility] Comment on above: Order Comment: Speci men Type: ARTERIAL BLOOD SPECIMENOrdering Facility: [facility] Address: [address] [place] [place] [address] Performed By: #### A LLBG ####[facility] LABIA [id number] [place] [address] [place] Potassium [Moles/Vol] 4.1 mmol/L Normal 3.5-5.0 [facility] Comment on above: Order Comment: Speci men Type: ARTERIAL BLOOD SPECIMENOrdering Facility: [facility] Address: [address] [place] [address] Performed By: #### A LLBG ####[facility] LABCLIA [id number] [place] [address] [place] Sodium [Moles/Vol] 137 mmol/L Normal 136-144 [facility] Comment on above: Order Comment: Speci men Type: ARTERIAL BLOOD SPECIMENOrdering Facility: [facility] Address: [address] [place] [address] Performed By: #### A LLBG ####[facility] LABCLIA [id number] [place] [address] [place] Base excess Calc (Bld) [Moles/Vol] 3 mmol/L High 0-2 [facility] Comment on above: Order Comment: Speci men Type: ARTERIAL BLOOD SPECIMENOrdering Facility: [facility] Address: [address] [place] [address] Performed By: #### A LLBG ####[facility] LABCLIA [id number] [address] [place] Body temperature 98.06 [degF] Normal [facility] Comment on above: Order Comment: Speci men Type: ARTERIAL BLOOD SPECIMENOrdering Facility: [facility] Address: [address] [place] [address] Performed By: #### A LLBG ####[facility] LABCLIA [id number] [place] [address] [place] Order Comment: Speci men Type: VENOUS BLOOD SPECIMENOrdering Facility: [facility] Address: [address] [place] [address] Performed By: #### 2 4344-4 ####[facility] LABCLIA [id number] [address] [place] Calcium.ionized (Bld) [Mass/Vol] 1.19 mmol/L Normal 1.08-1.30 [facility] Comment on above: Order Comment: Speci men Type: ARTERIAL BLOOD SPECIMENOrdering Facility: [facility] Address: [address] [place] [address] Performed By: #### A LLBG ####[facility] LABCLIA [id number] [place] [address] [place] Calcium.ionized adjusted to pH 7.4 (BldA) [Moles/Vol] 1.23 mmol/L Normal 1.08-1.30 [facility] Comment on above: Order Comment: Speci men Type: ARTERIAL BLOOD SPECIMENOrdering Facility: [facility] Address: [address] [place] [address] Performed By: #### A LLBG ####[facility] LABCLIA [id number] [address] [place] Carboxyhemoglobin (BldA) [Mass fraction] 1.4 % Normal 0.0-2.0 [facility] Comment on above: Order Comment: Speci men Type: ARTERIAL BLOOD SPECIMENOrdering Facility: [facility] Address: [address] [place] [address] Result Comment: Carb oxyhemoglobin Reference Range for Smokers: 2.0-8.0% Performed By: #### A LLBG ####[facility] LABCLIA [id number] [place] [address] [place] CO2 (Bld) [Partial pressure] 36 mm Hg Normal 36-46 [facility] Comment on above: Order Comment: Speci men Type: ARTERIAL BLOOD SPECIMENOrdering Facility: [facility] Address: [address] [place] [address] Performed By: #### A LLBG ####[facility] LABCLIA [id number] [place] [address] [place] CO2 adjusted to patient's actual temperature (Bld) [Partial pressure] 36 mmHg Normal 36-46 [facility] Comment on above: Order Comment: Speci men Type: ARTERIAL BLOOD SPECIMENOrdering Facility: [facility] Address: [address] [place] [address] Performed By: #### A LLBG ####[facility] LABCLIA [id number] [place] [address] [place] FIO2 30 % Normal [facility] Comment on above: Order Comment: Speci men Type: ARTERIAL BLOOD SPECIMENOrdering Facility: [facility] Address: [address] [place] [address] Performed By: #### A LLBG ####[facility] LABCLIA [id number] [place] [address] [place] Order Comment: Speci men Type: VENOUS BLOOD SPECIMENOrdering Facility: [facility] Address: [address] [place] [address] Performed By: #### 2 4344-4 ####[facility] LABCLIA [id number] [place] [address] [place] Glucose [Mass/Vol] 124 mg/dL High 60-105 [facility] Comment on above: Order Comment: Speci men Type: ARTERIAL BLOOD SPECIMENOrdering Facility: [facility] Address: [address] [place] [address] Performed By: #### A LLBG ####[facility] LABCLIA [id number] [place] [address] [place] HCO3 (Bld) [Moles/Vol] 26 mmol/L Normal 22-26 [facility] Comment on above: Order Comment: Speci men Type: ARTERIAL BLOOD SPECIMENOrdering Facility: [facility] Address: [address] [place] [address] Performed By: #### A LLBG ####[facility] LABCLIA [id number] [place] [address] [place] Hematocrit (Bld) [Volume fraction] 32.4 % Low 39.0-51.0 [facility] Comment on above: Order Comment: Speci men Type: ARTERIAL BLOOD SPECIMENOrdering Facility: [facility] Address: [address] [place] [address] Performed By: #### A LLBG ####[facility] LABCLIA [id number] [place] [address] [place] Hemoglobin (Bld) [Mass/Vol] 10.5 g/dL Low 13.0-17.0 [facility] Comment on above: Order Comment: Speci men Type: ARTERIAL BLOOD SPECIMENOrdering Facility: [facility] Address: [address] [place] [address] Performed By: #### A LLBG ####[facility] LABCLIA [id number] [place] [address] [place] Lactate [Moles/Vol] 2.4 mmol/L High 0.5-2.2 [facility] Comment on above: Order Comment: Speci men Type: ARTERIAL BLOOD SPECIMENOrdering Facility: [facility] Address: [address] [place] [address] Performed By: #### A LLBG ####[facility] LABCLIA [id number] [place] [address] [place] Order Comment: Speci men Type: VENOUS BLOOD SPECIMENOrdering Facility: [facility] Address: [address] [place] [address] Performed By: #### 2 4344-4 ####[facility] LABCLIA [id number] [place] [address] [place] Methemoglobin (Bld) [Mass fraction] 0.6 % Normal 0.0-1.5 [facility] Comment on above: Order Comment: Speci men Type: ARTERIAL BLOOD SPECIMENOrdering Facility: [facility] Address: [address] [place] [address] Performed By: #### A LLBG ####[facility] LABCLIA [id number] [address] [address] [place] O2 THERAPY VENT=Ventilator Normal [facility] Comment on above: Order Comment: Speci men Type: ARTERIAL BLOOD SPECIMENOrdering Facility: [facility] Address: [address] [place] [address] Performed By: #### A LLBG ####[facility] LABCLIA [id number] [address] [address] [place] Order Comment: Speci men Type: VENOUS BLOOD SPECIMENOrdering Facility: [facility] Address: [address] [place] [id number] Performed By: #### 2 4344-4 ####[facility] LABCLIA [id number] [address] [address] [place] Oxygen (Bld) [Partial pressure] 117 mm Hg High 85-95 [facility] Comment on above: Order Comment: Speci men Type: ARTERIAL BLOOD SPECIMENOrdering Facility: [facility] Address: [address] [place] [address] Performed By: #### A LLBG ####[facility] LABCLIA [id number] [address] [address] [place] Oxygen adjusted to patient's actual temperature (Bld) [Partial pressure] 115 mmHg High 85-95 [facility] Comment on above: Order Comment: Speci men Type: ARTERIAL BLOOD SPECIMENOrdering Facility: [facility] Address: [address] [place] [address] Performed By: #### A LLBG ####[facility] LABCLIA [id number] [address] [address] [place] Oxyhemoglobin (BldA) [Mass fraction] 97 % Normal 95-98 [facility] Comment on above: Order Comment: Speci men Type: ARTERIAL BLOOD SPECIMENOrdering Facility: [facility] Address: [address] [place] [address] Performed By: #### A LLBG ####[facility] LABCLIA [id number] [place] [address] [place] PEEP/CPAP 10 cmH2O Normal [facility] Comment on above: Order Comment: Speci men Type: ARTERIAL BLOOD SPECIMENOrdering Facility: [facility] Address: [address] [place] [address] Performed By: #### A LLBG ####[facility] LABCLIA [id number] [place] [address] [place] Order Comment: Speci men Type: VENOUS BLOOD SPECIMENOrdering Facility: [facility] Address: [address] [place] [address] Performed By: #### 2 4344-4 ####[facility] LABCLIA [id number] [place] [address] [place] pH (Bld) 7.47 [pH] High 7.35-7.45 [facility] Comment on above: Order Comment: Speci men Type: ARTERIAL BLOOD SPECIMENOrdering Facility: [facility] Address: [address] [place] [address] Performed By: #### A LLBG ####[facility] LABCLIA [id number] [place] [address] [place] pH adjusted to patient's actual temperature (Bld) 7.47 High 7.35-7.45 [facility] Comment on above: Order Comment: Speci men Type: ARTERIAL BLOOD SPECIMENOrdering Facility: [facility] Address: [address] [place] [address] Performed By: #### A LLBG ####[facility] LABCLIA [id number] [place] [address] [place] PO2 / FIO2 RATIO 390 mmHg Normal >300 [facility] Comment on above: Order Comment: Speci men Type: ARTERIAL BLOOD SPECIMENOrdering Facility: [facility] Address: [address] [place] [address] Performed By: #### A LLBG ####[facility] LABCLIA [id number] [place] [address] [place] Potassium [Moles/Vol] 4.1 mmol/L Normal 3.5-5.0 [facility] Comment on above: Order Comment: Speci men Type: ARTERIAL BLOOD SPECIMENOrdering Facility: [facility] Address: [address] [place] [address] Performed By: #### A LLBG ####[facility] LABCLIA [id number] [place] [address] [place] Order Comment: Speci men Type: VENOUS BLOOD SPECIMENOrdering Facility: [facility] Address: [address] [place] [address] Performed By: #### 2 4344-4 ####[facility] LABCLIA [id number] [place] [address] [place] Base excess Calc (Bld) [Moles/Vol] 1 mmol/L Normal 0-2 [facility] Comment on above: Order Comment: Speci men Type: ARTERIAL BLOOD SPECIMENOrdering Facility: [facility] Address: [address] [place] [address] Performed By: #### A LLBG ####[facility] LABCLIA [id number] [place] [address] [place] Body temperature 98.6 [degF] Normal [facility] Comment on above: Order Comment: Speci men Type: ARTERIAL BLOOD SPECIMENOrdering Facility: [facility] Address: [address] [place] [address] Performed By: #### A LLBG ####[facility] LABCLIA [id number] [address] [place] Order Comment: Speci men Type: VENOUS BLOOD SPECIMENOrdering Facility: [facility] Address: [address] [place] [address] Performed By: #### 2 4344-4 ####[facility] LABCLIA [id number] [place] [address] [place] Calcium.ionized (Bld) [Mass/Vol] 1.18 mmol/L Normal 1.08-1.30 [facility] Comment on above: Order Comment: Speci men Type: ARTERIAL BLOOD SPECIMENOrdering Facility: [facility] Address: [address] [place] [address] Performed By: #### A LLBG ####[facility] LABIA [id number] [place] [address] [place] Calcium.ionized adjusted to pH 7.4 (BldA) [Moles/Vol] 1.22 mmol/L Normal 1.08-1.30 [facility] Comment on above: Order Comment: Speci men Type: ARTERIAL BLOOD SPECIMENOrdering Facility: [facility] Address: [address] [place] [address] Performed By: #### A LLBG ####[facility] LABIA [id number] [place] [address] [place] Carboxyhemoglobin (BldA) [Mass fraction] 0.6 % Normal 0.0-2.0 [facility] Comment on above: Order Comment: Speci men Type: ARTERIAL BLOOD SPECIMENOrdering Facility: [facility] Address: [address] [place] [address] Result Comment: Carb oxyhemoglobin Reference Range for Smokers: 2.0-8.0% Performed By: #### A LLBG ####[facility] LABIA [id number] [place] [address] [place] CO2 (Bld) [Partial pressure] 36 mm Hg Normal 36-46 [facility] Comment on above: Order Comment: Speci men Type: ARTERIAL BLOOD SPECIMENOrdering Facility: [facility] Address: [address] [place] [address] Performed By: #### A LLBG ####[facility] LABCLIA [id number] [place] [address] [place] FIO2 30 % Normal [facility] Comment on above: Order Comment: Speci men Type: ARTERIAL BLOOD SPECIMENOrdering Facility: [facility] Address: [address] [place] [address] Performed By: #### A LLBG ####[facility] LABCLIA [id number] [place] [address] [place] Order Comment: Speci men Type: VENOUS BLOOD SPECIMENOrdering Facility: [facility] Address: [address] [place] [address] Performed By: #### 2 4344-4 ####[facility] LABCLIA [id number] [place] [address] [place] Glucose [Mass/Vol] 125 mg/dL High 60-105 [facility] Comment on above: Order Comment: Speci men Type: ARTERIAL BLOOD SPECIMENOrdering Facility: [facility] Address: [address] [place] [address] Performed By: #### A LLBG ####[facility] LABCLIA [id number] [place] [address] [place] HCO3 (Bld) [Moles/Vol] 24 mmol/L Normal 22-26 [facility] Comment on above: Order Comment: Speci men Type: ARTERIAL BLOOD SPECIMENOrdering Facility: [facility] Address: [address] [place] [address] Performed By: #### A LLBG ####[facility] LABCLIA [id number] [place] [address] [place] Hematocrit (Bld) [Volume fraction] 33.7 % Low 39.0-51.0 [facility] Comment on above: Order Comment: Speci men Type: ARTERIAL BLOOD SPECIMENOrdering Facility: [facility] Address: [address] [place] [address] Performed By: #### A LLBG ####[facility] LABCLIA [id number] [place] [address] [place] Hemoglobin (Bld) [Mass/Vol] 10.9 g/dL Low 13.0-17.0 [facility] Comment on above: Order Comment: Speci men Type: ARTERIAL BLOOD SPECIMENOrdering Facility: [facility] Address: [address] [place] [address] Performed By: #### A LLBG ####[facility] LABCLIA [id number] [place] [address] [place] Lactate [Moles/Vol] 2.9 mmol/L High 0.5-2.2 [facility] Comment on above: Order Comment: Speci men Type: ARTERIAL BLOOD SPECIMENOrdering Facility: [facility] Address: [address] [place] [address] Performed By: #### A LLBG ####[facility] LABCLIA [id number] [place] [address] [place] Methemoglobin (Bld) [Mass fraction] 1.0 % Normal 0.0-1.5 [facility] Comment on above: Order Comment: Speci men Type: ARTERIAL BLOOD SPECIMENOrdering Facility: [facility] Address: [address] [place] [address] Performed By: #### A LLBG ####[facility] LABCLIA [id number] [place] [address] [place] O2 THERAPY VENT=Ventilator Normal [facility] Comment on above: Order Comment: Speci men Type: ARTERIAL BLOOD SPECIMENOrdering Facility: [facility] Address: [address] [place] [address] Performed By: #### A LLBG ####[facility] LABCLIA [id number] [place] [address] [place] Order Comment: Speci men Type: VENOUS BLOOD SPECIMENOrdering Facility: [facility] Address: [address] [place] [address] Performed By: #### 2 4344-4 ####[facility] LABCLIA [id number] [place] [address] [place] Oxygen (Bld) [Partial pressure] 149 mm Hg High 85-95 [facility] Comment on above: Order Comment: Speci men Type: ARTERIAL BLOOD SPECIMENOrdering Facility: [facility] Address: [address] [place] [address] Performed By: #### A LLBG ####[facility] LABCLIA [id number] [place] [address] [place] Oxyhemoglobin (BldA) [Mass fraction] 97 % Normal 95-98 [facility] Comment on above: Order Comment: Speci men Type: ARTERIAL BLOOD SPECIMENOrdering Facility: [facility] Address: [address] [place] [address] Performed By: #### A LLBG ####[facility] LABCLIA [id number] [place] [address] [place] pH (Bld) 7.45 [pH] Normal 7.35-7.45 [facility] Comment on above: Order Comment: Speci men Type: ARTERIAL BLOOD SPECIMENOrdering Facility: [facility] Address: [address] [place] [address] Performed By: #### A LLBG ####[facility] LABCLIA [id number] [place] [address] [place] PO2 / FIO2 RATIO 497 mmHg Normal >300 [facility] Comment on above: Order Comment: Speci men Type: ARTERIAL BLOOD SPECIMENOrdering Facility: [facility] Address: [address] [place] [address] Performed By: #### A LLBG ####[facility] LABCLIA [id number] [place] [address] [place] Potassium [Moles/Vol] 4.0 mmol/L Normal 3.5-5.0 [facility] Comment on above: Order Comment: Speci men Type: ARTERIAL BLOOD SPECIMENOrdering Facility: [facility] Address: [address] [place] [address] Performed By: #### A LLBG ####[facility] LABIA [id number] [place] [address] [place] Base excess Calc (Bld) [Moles/Vol] 1 mmol/L Normal 0-2 [facility] Comment on above: Order Comment: Speci men Type: ARTERIAL BLOOD SPECIMENOrdering Facility: [facility] Address: [address] [place] [address] Performed By: #### A LLBG ####[facility] LABIA [id number] [place] [address] [place] Calcium.ionized (Bld) [Mass/Vol] 1.17 mmol/L Normal 1.08-1.30 [facility] Comment on above: Order Comment: Speci men Type: ARTERIAL BLOOD SPECIMENOrdering Facility: [facility] Address: [address] [place] [address] Performed By: #### A LLBG ####[facility] LABIA [id number] [place] [address] [place] Calcium.ionized adjusted to pH 7.4 (BldA) [Moles/Vol] 1.20 mmol/L Normal 1.08-1.30 [facility] Comment on above: Order Comment: Speci men Type: ARTERIAL BLOOD SPECIMENOrdering Facility: [facility] Address: [address] [place] [address] Performed By: #### A LLBG ####[facility] LABIA [id number] [place] [address] [place] Carboxyhemoglobin (BldA) [Mass fraction] 1.2 % Normal 0.0-2.0 [facility] Comment on above: Order Comment: Speci men Type: ARTERIAL BLOOD SPECIMENOrdering Facility: [facility] Address: [address] [place] [address] Result Comment: Carb oxyhemoglobin Reference Range for Smokers: 2.0-8.0% Performed By: #### A LLBG ####[facility] LABCLIA [id number] [place] [address] [place] CO2 (Bld) [Partial pressure] 36 mm Hg Normal 36-46 [facility] Comment on above: Order Comment: Speci men Type: ARTERIAL BLOOD SPECIMENOrdering Facility: [facility] Address: [address] [place] [address] Performed By: #### A LLBG ####[facility] LABCLIA [id number] [place] [address] [place] Glucose [Mass/Vol] 152 mg/dL High 60-105 [facility] Comment on above: Order Comment: Speci men Type: ARTERIAL BLOOD SPECIMENOrdering Facility: [facility] Address: [address] [place] [address] Performed By: #### A LLBG ####[facility] LABCLIA [id number] [place] [address] [place] HCO3 (Bld) [Moles/Vol] 24 mmol/L Normal 22-26 [facility] Comment on above: Order Comment: Speci men Type: ARTERIAL BLOOD SPECIMENOrdering Facility: [facility] Address: [address] [place] [address] Performed By: #### A LLBG ####[facility] LABCLIA [id number] [place] [address] [place] Hematocrit (Bld) [Volume fraction] 33.9 % Low 39.0-51.0 [facility] Comment on above: Order Comment: Speci men Type: ARTERIAL BLOOD SPECIMENOrdering Facility: [facility] Address: [address] [place] [address] Performed By: #### A LLBG ####[facility] LABCLIA [id number] [place] [address] [place] Hemoglobin (Bld) [Mass/Vol] 11.0 g/dL Low 13.0-17.0 [facility] Comment on above: Order Comment: Speci men Type: ARTERIAL BLOOD SPECIMENOrdering Facility: [facility] Address: [address] [place] [address] Performed By: #### A LLBG ####[facility] LABIA [id number] [place] [address] [place] Lactate [Moles/Vol] 4.6 mmol/L High 0.5-2.2 [facility] Comment on above: Order Comment: Speci men Type: ARTERIAL BLOOD SPECIMENOrdering Facility: [facility] Address: [address] [place] [address] Performed By: #### A LLBG ####[facility] LABIA [id number] [place] [address] [place] Methemoglobin (Bld) [Mass fraction] 1.2 % Normal 0.0-1.5 [facility] Comment on above: Order Comment: Speci men Type: ARTERIAL BLOOD SPECIMENOrdering Facility: [facility] Address: [address] [place] [address] Performed By: #### A LLBG ####[facility] LABIA [id number] [place] [address] [place] Oxygen (Bld) [Partial pressure] 125 mm Hg High 85-95 [facility] Comment on above: Order Comment: Speci men Type: ARTERIAL BLOOD SPECIMENOrdering Facility: [facility] Address: [address] [place] [address] Performed By: #### A LLBG ####[facility] LABIA [id number] [place] [address] [place] Oxyhemoglobin (BldA) [Mass fraction] 97 % Normal 95-98 [facility] Comment on above: Order Comment: Speci men Type: ARTERIAL BLOOD SPECIMENOrdering Facility: [facility] Address: [address] [place] [address] Performed By: #### A LLBG ####[facility] LABCLIA [id number] [place] [address] [place] pH (Bld) 7.44 [pH] Normal 7.35-7.45 [facility] Comment on above: Order Comment: Speci men Type: ARTERIAL BLOOD SPECIMENOrdering Facility: [facility] Address: [address] [place] [address] Performed By: #### A LLBG ####[facility] LABCLIA [id number] [place] [address] [place] PO2 / FIO2 RATIO 417 mmHg Normal >300 [facility] Comment on above: Order Comment: Speci men Type: ARTERIAL BLOOD SPECIMENOrdering Facility: [facility] Address: [address] [place] [address] Performed By: #### A LLBG ####[facility] LABCLIA [id number] [place] [address] [place] Sodium [Moles/Vol] 137 mmol/L Normal 136-144 [facility] Comment on above: Order Comment: Speci men Type: ARTERIAL BLOOD SPECIMENOrdering Facility: [facility] Address: [address] [place] [address] Performed By: #### A LLBG ####[facility] LABCLIA [id number] [place] [address] [place] Base excess Calc (Bld) [Moles/Vol] 0 mmol/L Normal 0-2 [facility] Comment on above: Order Comment: Speci men Type: ARTERIAL BLOOD SPECIMENOrdering Facility: [facility] Address: [address] [place] [address] Performed By: #### A LLBG ####[facility] LABCLIA [id number] [place] Body temperature 98.6 [degF] Normal [facility] Comment on above: Order Comment: Speci men Type: ARTERIAL BLOOD SPECIMENOrdering Facility: [facility] Address: [address] [place] [address] Performed By: #### A LLBG ####[facility] LABCLIA [id number] [address] [place] Order Comment: Speci men Type: VENOUS BLOOD SPECIMENOrdering Facility: [facility] Address: [address] [place] [address] Performed By: #### 2 4344-4 ####[facility] LABCLIA [id number] [place] [address] [place] Calcium.ionized (Bld) [Mass/Vol] 1.18 mmol/L Normal 1.08-1.30 [facility] Comment on above: Order Comment: Speci men Type: ARTERIAL BLOOD SPECIMENOrdering Facility: [facility] Address: [address] [place] [address] Performed By: #### A LLBG ####[facility] LABCLIA [id number] [address] [place] Order Comment: Speci men Type: VENOUS BLOOD SPECIMENOrdering Facility: [facility] Address: [address] [place] [address] Performed By: #### 2 4344-4 ####[facility] LABCLIA [id number] [place] [address] [place] Calcium.ionized adjusted to pH 7.4 (BldA) [Moles/Vol] 1.20 mmol/L Normal 1.08-1.30 [facility] Comment on above: Order Comment: Speci men Type: ARTERIAL BLOOD SPECIMENOrdering Facility: [facility] Address: [address] [place] [address] Performed By: #### A LLBG ####[facility] LABCLIA [id number] [place] [address] [place] Carboxyhemoglobin (BldA) [Mass fraction] 0.6 % Normal 0.0-2.0 [facility] Comment on above: Order Comment: Speci men Type: ARTERIAL BLOOD SPECIMENOrdering Facility: [facility] Address: [address] [place] [address] Result Comment: Carb oxyhemoglobin Reference Range for Smokers: 2.0-8.0% Performed By: #### A LLBG ####[facility] LABCLIA [id number] [place] [address] [place] CO2 (Bld) [Partial pressure] 35 mm Hg Low 36-46 [facility] Comment on above: Order Comment: Speci men Type: ARTERIAL BLOOD SPECIMENOrdering Facility: [facility] Address: [address] [place] [address] Performed By: #### A LLBG ####[facility] LABIA [id number] [place] [address] [place] FIO2 40 % Normal [facility] Comment on above: Order Comment: Speci men Type: ARTERIAL BLOOD SPECIMENOrdering Facility: [facility] Address: [address] [place] [address] Performed By: #### A LLBG ####[facility] LABIA [id number] [place] [address] [place] Order Comment: Speci men Type: VENOUS BLOOD SPECIMENOrdering Facility: [facility] Address: [address] [place] [address] Performed By: #### 2 4344-4 ####[facility] LABIA [id number] [place] [address] [place] Glucose [Mass/Vol] 148 mg/dL High 60-105 [facility] Comment on above: Order Comment: Speci men Type: ARTERIAL BLOOD SPECIMENOrdering Facility: [facility] Address: [address] [place] [address] Performed By: #### A LLBG ####[facility] LABCLIA [id number] [place] [address] [place] Order Comment: Speci men Type: VENOUS BLOOD SPECIMENOrdering Facility: [facility] Address: [address] [place] [address] Performed By: #### 2 4344-4 ####[facility] LABCLIA [id number] [place] [address] [place] HCO3 (Bld) [Moles/Vol] 24 mmol/L Normal 22-26 [facility] Comment on above: Order Comment: Speci men Type: ARTERIAL BLOOD SPECIMENOrdering Facility: [facility] Address: [address] [place] [address] Performed By: #### A LLBG ####[facility] LABCLIA [id number] [place] [address] [place] Hematocrit (Bld) [Volume fraction] 34.6 % Low 39.0-51.0 [facility] Comment on above: Order Comment: Speci men Type: ARTERIAL BLOOD SPECIMENOrdering Facility: [facility] Address: [address] [place] [address] Performed By: #### A LLBG ####[facility] LABCLIA [id number] [place] [address] [place] Hemoglobin (Bld) [Mass/Vol] 11.2 g/dL Low 13.0-17.0 [facility] Comment on above: Order Comment: Speci men Type: ARTERIAL BLOOD SPECIMENOrdering Facility: [facility] Address: [address] [place] [address] Performed By: #### A LLBG ####[facility] LABCLIA [id number] [place] [address] [place] Lactate [Moles/Vol] 4.8 mmol/L High 0.5-2.2 [facility] Comment on above: Order Comment: Speci men Type: ARTERIAL BLOOD SPECIMENOrdering Facility: [facility] Address: [address] [place] [id number] Performed By: #### A LLBG ####[facility] LABCLIA [id number] [place] [id number] [place] Methemoglobin (Bld) [Mass fraction] 1.0 % Normal 0.0-1.5 [facility] Comment on above: Order Comment: Speci men Type: ARTERIAL BLOOD SPECIMENOrdering Facility: [facility] Address: [address] [id number] Performed By: #### A LLBG ####[facility] LABCLIA [id number] [place] [address] [place] O2 THERAPY VENT=Ventilator Normal [facility] Comment on above: Order Comment: Speci men Type: ARTERIAL BLOOD SPECIMENOrdering Facility: [facility] Address: [address] [place] [address] Performed By: #### A LLBG ####[facility] LABCLIA [id number] [place] [address] [place] Order Comment: Speci men Type: VENOUS BLOOD SPECIMENOrdering Facility: [facility] Address: [address] [place], [place] [address] Performed By: #### 2 4344-4 ####[facility] LABCLIA [id number] [place] [address] [place] Oxygen (Bld) [Partial pressure] 114 mm Hg High 85-95 [facility] Comment on above: Order Comment: Speci men Type: ARTERIAL BLOOD SPECIMENOrdering Facility: [facility] Address: [address] [place], [place] [id number] Performed By: #### A LLBG ####[facility] LABCLIA [id number] [place] [id number] [place] Oxyhemoglobin (BldA) [Mass fraction] 97 % Normal 95-98 [facility] Comment on above: Order Comment: Speci men Type: ARTERIAL BLOOD SPECIMENOrdering Facility: [facility] Address: [address] [place] [address] Performed By: #### A LLBG ####[facility] LABCLIA [id number] [place] [address] [place] pH (Bld) 7.44 [pH] Normal 7.35-7.45 [facility] Comment on above: Order Comment: Speci men Type: ARTERIAL BLOOD SPECIMENOrdering Facility: [facility] Address: [address] [place] [address] Performed By: #### A LLBG ####[facility] LABCLIA [id number] [place] [address] [place] PO2 / FIO2 RATIO 285 mmHg Low >300 [facility] Comment on above: Order Comment: Speci men Type: ARTERIAL BLOOD SPECIMENOrdering Facility: [facility] Address: [address] [place] [address] Performed By: #### A LLBG ####[facility] LABCLIA [id number] [place] [address] [place] Potassium [Moles/Vol] 3.8 mmol/L Normal 3.5-5.0 [facility] Comment on above: Order Comment: Speci men Type: ARTERIAL BLOOD SPECIMENOrdering Facility: [facility] Address: [address] [place] [address] Performed By: #### A LLBG ####[facility] LABCLIA [id number] [place] [address] [place] Base excess Calc (Bld) [Moles/Vol] 0 mmol/L Normal 0-2 [facility] Comment on above: Order Comment: Speci men Type: ARTERIAL BLOOD SPECIMENOrdering Facility: [facility] Address: [address] [place] [address] Performed By: #### A LLBG ####[facility] LABCLIA [id number] [place] [address] [place] Body temperature 98.6 [degF] Normal [facility] Comment on above: Order Comment: Speci men Type: ARTERIAL BLOOD SPECIMENOrdering Facility: [facility] Address: [address] [place] [address] Performed By: #### A LLBG ####[facility] LABCLIA [id number] [place] [address] [place] Order Comment: Speci men Type: VENOUS BLOOD SPECIMENOrdering Facility: [facility] Address: [address] [place] [address] Performed By: #### 2 4344-4 ####[facility] LABCLIA [id number] [place] [address] [place] Calcium.ionized (Bld) [Mass/Vol] 1.18 mmol/L Normal 1.08-1.30 [facility] Comment on above: Order Comment: Speci men Type: ARTERIAL BLOOD SPECIMENOrdering Facility: [facility] Address: [address] [place] [address] Performed By: #### A LLBG ####[facility] LABIA [id number] [place] [address] [place] Calcium.ionized adjusted to pH 7.4 (BldA) [Moles/Vol] 1.19 mmol/L Normal 1.08-1.30 [facility] Comment on above: Order Comment: Speci men Type: ARTERIAL BLOOD SPECIMENOrdering Facility: [facility] Address: [address] [place] [address] Performed By: #### A LLBG ####[facility] LABCLIA [id number] [place] [address] [place] Carboxyhemoglobin (BldA) [Mass fraction] 1.2 % Normal 0.0-2.0 [facility] Comment on above: Order Comment: Speci men Type: ARTERIAL BLOOD SPECIMENOrdering Facility: [facility] Address: [address] [place] [address] Result Comment: Carb oxyhemoglobin Reference Range for Smokers: 2.0-8.0% Performed By: #### A LLBG ####[facility] LABCLIA [id number] [place] [address] [place] CO2 (Bld) [Partial pressure] 38 mm Hg Normal 36-46 [facility] Comment on above: Order Comment: Speci men Type: ARTERIAL BLOOD SPECIMENOrdering Facility: [facility] Address: [address] [place] [address] Performed By: #### A LLBG ####[facility] LABCLIA [id number] [place] [address] [place] FIO2 60 % Normal [facility] Comment on above: Order Comment: Speci men Type: ARTERIAL BLOOD SPECIMENOrdering Facility: [facility] Address: [address] [place] [address] Performed By: #### A LLBG ####[facility] LABCLIA [id number] [place] [address] [place] Order Comment: Speci men Type: VENOUS BLOOD SPECIMENOrdering Facility: [facility] Address: [address] [place] [address] Performed By: #### 2 4344-4 ####[facility] LABCLIA [id number] [place] [address] [place] Glucose [Mass/Vol] 150 mg/dL High 60-105 [facility] Comment on above: Order Comment: Speci men Type: ARTERIAL BLOOD SPECIMENOrdering Facility: [facility] Address: [address] [place] [address] Performed By: #### A LLBG ####[facility] LABCLIA [id number] [place] [address] [place] Order Comment: Speci men Type: VENOUS BLOOD SPECIMENOrdering Facility: [facility] Address: [address] [place] [address] Performed By: #### 2 4344-4 ####[facility] LABCLIA [id number] [place] [address] [place] HCO3 (Bld) [Moles/Vol] 24 mmol/L Normal 24-28 [facility] Comment on above: Order Comment: Speci men Type: ARTERIAL BLOOD SPECIMENOrdering Facility: [facility] Address: [address] [place] [address] Performed By: #### A LLBG ####[facility] LABCLIA [id number] [address] [place] Order Comment: Speci men Type: VENOUS BLOOD SPECIMENOrdering Facility: [facility] Address: [address] [place] [address] Performed By: #### 2 4344-4 ####[facility] LABCLIA [id number] [place] [address] [place] Hematocrit (Bld) [Volume fraction] 35.3 % Low 39.0-51.0 [facility] Comment on above: Order Comment: Speci men Type: ARTERIAL BLOOD SPECIMENOrdering Facility: [facility] Address: [address] [place] [address] Performed By: #### A LLBG ####[facility] LABCLIA [id number] [place] [address] [place] Hemoglobin (Bld) [Mass/Vol] 11.5 g/dL Low 13.0-17.0 [facility] Comment on above: Order Comment: Speci men Type: ARTERIAL BLOOD SPECIMENOrdering Facility: [facility] Address: [address] [place] [address] Performed By: #### A LLBG ####[facility] LABCLIA [id number] [address] [place] Order Comment: Speci men Type: VENOUS BLOOD SPECIMENOrdering Facility: [facility] Address: [address] [place] [address] Performed By: #### 2 4344-4 ####[facility] LABCLIA [id number] [place] [address] [place] Lactate [Moles/Vol] 5.2 mmol/L High 0.5-2.2 [facility] Comment on above: Order Comment: Speci men Type: ARTERIAL BLOOD SPECIMENOrdering Facility: [facility] Address: [address] [place] [address] Performed By: #### A LLBG ####[facility] LABCLIA [id number] [place] [address] [place] Methemoglobin (Bld) [Mass fraction] 1.3 % Normal 0.0-1.5 [facility] Comment on above: Order Comment: Speci men Type: ARTERIAL BLOOD SPECIMENOrdering Facility: [facility] Address: [address] [place] [address] Performed By: #### A LLBG ####[facility] LABCLIA [id number] [place] [address] [place] O2 THERAPY VENT=Ventilator Normal [facility] Comment on above: Order Comment: Speci men Type: ARTERIAL BLOOD SPECIMENOrdering Facility: [facility] Address: [address] [place] [address] Performed By: #### A LLBG ####[facility] LABCLIA [id number] [place] [address] [place] Order Comment: Speci men Type: VENOUS BLOOD SPECIMENOrdering Facility: [facility] Address: [address] [place] [address] Performed By: #### 2 4344-4 ####[facility] LABCLIA [id number] [place] [address] [place] Oxygen (Bld) [Partial pressure] 135 mm Hg High 85-95 [facility] Comment on above: Order Comment: Speci men Type: ARTERIAL BLOOD SPECIMENOrdering Facility: [facility] Address: [address] [place] [address] Performed By: #### A LLBG ####[facility] LABCLIA [id number] [place] [address] [place] Oxyhemoglobin (BldA) [Mass fraction] 97 % Normal 95-98 [facility] Comment on above: Order Comment: Speci men Type: ARTERIAL BLOOD SPECIMENOrdering Facility: [facility] Address: [address] [place] [address] Performed By: #### A LLBG ####[facility] LABCLIA [id number] [place] [address] [place] pH (Bld) 7.41 [pH] Normal 7.35-7.45 [facility] Comment on above: Order Comment: Speci men Type: ARTERIAL BLOOD SPECIMENOrdering Facility: [facility] Address: [address] [place] [address] Performed By: #### A LLBG ####[facility] LABCLIA [id number] [place] [address] [place] PO2 / FIO2 RATIO 225 mmHg Low >300 [facility] Comment on above: Order Comment: Speci men Type: ARTERIAL BLOOD SPECIMENOrdering Facility: [facility] Address: [address] [place] [address] Performed By: #### A LLBG ####[facility] LABCLIA [id number] [place] [address] [place] Potassium [Moles/Vol] 3.7 mmol/L Normal 3.5-5.0 [facility] Comment on above: Order Comment: Speci men Type: ARTERIAL BLOOD SPECIMENOrdering Facility: [facility] Address: [address] [place] [address] Performed By: #### A LLBG ####[facility] LABCLIA [id number] [place] [address] [place] Order Comment: Speci men Type: VENOUS BLOOD SPECIMENOrdering Facility: [facility] Address: [address] [place] [address] Performed By: #### 2 4344-4 ####[facility] [id number] [place] [address] [place] Base deficit (BldA) [Moles/Vol] -2 mmol/L Normal -2-0 [facility] Comment on above: Order Comment: Speci men Type: ARTERIAL BLOOD SPECIMENOrdering Facility: [facility] Address: [address] [place] [address] Performed By: #### A LLBG ####[facility] [id number] [place] [address] [place] Calcium.ionized (Bld) [Mass/Vol] 1.20 mmol/L Normal 1.08-1.30 [facility] Comment on above: Order Comment: Speci men Type: ARTERIAL BLOOD SPECIMENOrdering Facility: [facility] Address: [address] [place] [address] Performed By: #### A LLBG ####[facility] [id number] [place] [address] [place] Calcium.ionized adjusted to pH 7.4 (BldA) [Moles/Vol] 1.18 mmol/L Normal 1.08-1.30 [facility] Comment on above: Order Comment: Speci men Type: ARTERIAL BLOOD SPECIMENOrdering Facility: [facility] Address: [address] [place] [address] Performed By: #### A LLBG ####[facility] [id number] [place] [address] [place] Carboxyhemoglobin (BldA) [Mass fraction] 1.2 % Normal 0.0-2.0 [facility] Comment on above: Order Comment: Speci men Type: ARTERIAL BLOOD SPECIMENOrdering Facility: [facility] Address: [address] [place] [address] Result Comment: Carb oxyhemoglobin Reference Range for Smokers: 2.0-8.0% Performed By: #### A LLBG ####[facility] LABCLIA [id number] [place] [address] [place] CO2 (Bld) [Partial pressure] 41 mm Hg Normal 36-46 [facility] Comment on above: Order Comment: Speci men Type: ARTERIAL BLOOD SPECIMENOrdering Facility: [facility] Address: [address] [place] [address] Performed By: #### A LLBG ####[facility] LABCLIA [id number] [place] [address] [place] Glucose [Mass/Vol] 181 mg/dL High 60-105 [facility] Comment on above: Order Comment: Speci men Type: ARTERIAL BLOOD SPECIMENOrdering Facility: [facility] Address: [address] [place] [address] Performed By: #### A LLBG ####[facility] LABCLIA [id number] [place] [address] [place] HCO3 (Bld) [Moles/Vol] 23 mmol/L Normal 22-26 [facility] Comment on above: Order Comment: Speci men Type: ARTERIAL BLOOD SPECIMENOrdering Facility: [facility] Address: [address] [place] [address] Performed By: #### A LLBG ####[facility] LABCLIA [id number] [place] [address] [place] Hematocrit (Bld) [Volume fraction] 34.8 % Low 39.0-51.0 [facility] Comment on above: Order Comment: Speci men Type: ARTERIAL BLOOD SPECIMENOrdering Facility: [facility] Address: [address] [place] [address] Performed By: #### A LLBG ####[facility] LABIA [id number] [place] [address] [place] Hemoglobin (Bld) [Mass/Vol] 11.3 g/dL Low 13.0-17.0 [facility] Comment on above: Order Comment: Speci men Type: ARTERIAL BLOOD SPECIMENOrdering Facility: [facility] Address: [address] [place] [address] Performed By: #### A LLBG ####[facility] LABIA [id number] [place] [address] [place] Lactate [Moles/Vol] 5.5 mmol/L High 0.5-2.2 [facility] Comment on above: Order Comment: Speci men Type: ARTERIAL BLOOD SPECIMENOrdering Facility: [facility] Address: [address] [place] [address] Performed By: #### A LLBG ####[facility] LABIA [id number] [place] [address] [place] Oxygen (Bld) [Partial pressure] 132 mm Hg High 85-95 [facility] Comment on above: Order Comment: Speci men Type: ARTERIAL BLOOD SPECIMENOrdering Facility: [facility] Address: [address] [place] [address] Performed By: #### A LLBG ####[facility] LABIA [id number] [place] [address] [place] Oxyhemoglobin (BldA) [Mass fraction] 97 % Normal 95-98 [facility] Comment on above: Order Comment: Speci men Type: ARTERIAL BLOOD SPECIMENOrdering Facility: [facility] Address: [address] [place] [address] Performed By: #### A LLBG ####[facility] LABIA [id number] [place] [id number] [place] pH (Bld) 7.37 [pH] Normal 7.35-7.45 [facility] Comment on above: Order Comment: Speci men Type: ARTERIAL BLOOD SPECIMENOrdering Facility: [facility] Address: [address] [place] [address] Performed By: #### A LLBG ####[facility] LABCLIA [id number] [place] [address] [place] PO2 / FIO2 RATIO 132 mmHg Low >300 [facility] Comment on above: Order Comment: Speci men Type: ARTERIAL BLOOD SPECIMENOrdering Facility: [facility] Address: [address] [place] [address] Performed By: #### A LLBG ####[facility] LABCLIA [id number] [place] [address] [place] Base deficit (BldA) [Moles/Vol] -2 mmol/L Normal -2-0 [facility] Comment on above: Order Comment: Speci men Type: ARTERIAL BLOOD SPECIMENOrdering Facility: [facility] Address: [address] [place] [address] Performed By: #### A LLBG ####[facility] LABCLIA [id number] [place] [address] [place] Body temperature 98.6 [degF] Normal [facility] Comment on above: Order Comment: Speci men Type: ARTERIAL BLOOD SPECIMENOrdering Facility: [facility] Address: [address] [place] [address] Performed By: #### A LLBG ####[facility] LABCLIA [id number] [place] [address] [place] Calcium.ionized (Bld) [Mass/Vol] 1.14 mmol/L Normal 1.08-1.30 [facility] Comment on above: Order Comment: Speci men Type: ARTERIAL BLOOD SPECIMENOrdering Facility: [facility] Address: [address] [place] [address] Performed By: #### A LLBG ####[facility] LABCLIA [id number] [place] [address] [place] Calcium.ionized adjusted to pH 7.4 (BldA) [Moles/Vol] 1.14 mmol/L Normal 1.08-1.30 [facility] Comment on above: Order Comment: Speci men Type: ARTERIAL BLOOD SPECIMENOrdering Facility: [facility] Address: [address] [place] [address] Performed By: #### A LLBG ####[facility] LABCLIA [id number] [place] [address] [place] Carboxyhemoglobin (BldA) [Mass fraction] 1.6 % Normal 0.0-2.0 [facility] Comment on above: Order Comment: Speci men Type: ARTERIAL BLOOD SPECIMENOrdering Facility: [facility] Address: [address] [place] [address] Result Comment: Carb oxyhemoglobin Reference Range for Smokers: 2.0-8.0% Performed By: #### A LLBG ####[facility] LABCLIA [id number] [place] [address] [place] CO2 (Bld) [Partial pressure] 37 mm Hg Normal 36-46 [facility] Comment on above: Order Comment: Speci men Type: ARTERIAL BLOOD SPECIMENOrdering Facility: [facility] Address: [address] [place] [address] Performed By: #### A LLBG ####[facility] LABCLIA [id number] [place] [address] [place] FIO2 30 % Normal [facility] Comment on above: Order Comment: Speci men Type: ARTERIAL BLOOD SPECIMENOrdering Facility: [facility] Address: [address] [place] [address] Performed By: #### A LLBG ####[facility] LABCLIA [id number] [place] [address] [place] Glucose [Mass/Vol] 152 mg/dL High 60-105 [facility] Comment on above: Order Comment: Speci men Type: ARTERIAL BLOOD SPECIMENOrdering Facility: [facility] Address: [address] [place] [address] Performed By: #### A LLBG ####[facility] LABCLIA [id number] [place] [address] [place] HCO3 (Bld) [Moles/Vol] 22 mmol/L Normal 22-26 [facility] Comment on above: Order Comment: Speci men Type: ARTERIAL BLOOD SPECIMENOrdering Facility: [facility] Address: [address] [place] [address] Performed By: #### A LLBG ####[facility] LABIA [id number] [place] [address] [place] Hematocrit (Bld) [Volume fraction] 33.5 % Low 39.0-51.0 [facility] Comment on above: Order Comment: Speci men Type: ARTERIAL BLOOD SPECIMENOrdering Facility: [facility] Address: [address] [place] [address] Performed By: #### A LLBG ####[facility] LABIA [id number] [place] [address] [place] Hemoglobin (Bld) [Mass/Vol] 10.9 g/dL Low 13.0-17.0 [facility] Comment on above: Order Comment: Speci men Type: ARTERIAL BLOOD SPECIMENOrdering Facility: [facility] Address: [address] [place] [address] Performed By: #### A LLBG ####[facility] LABIA [id number] [place] [address] [place] Lactate [Moles/Vol] 6.0 mmol/L High 0.5-2.2 [facility] Comment on above: Order Comment: Speci men Type: ARTERIAL BLOOD SPECIMENOrdering Facility: [facility] Address: [address] [place] [address] Performed By: #### A LLBG ####[facility] LABCLIA [id number] [place] [address] [place] Methemoglobin (Bld) [Mass fraction] 0.6 % Normal 0.0-1.5 [facility] Comment on above: Order Comment: Speci men Type: ARTERIAL BLOOD SPECIMENOrdering Facility: [facility] Address: [address] [place] [address] Performed By: #### A LLBG ####[facility] LABCLIA [id number] [place] [address] [place] O2 THERAPY VENT=Ventilator Normal [facility] Comment on above: Order Comment: Speci men Type: ARTERIAL BLOOD SPECIMENOrdering Facility: [facility] Address: [address] [place] [address] Performed By: #### A LLBG ####[facility] LABIA [id number] [place] [address] [place] Oxygen (Bld) [Partial pressure] 59 mm Hg Low 85-95 [facility] Comment on above: Order Comment: Speci men Type: ARTERIAL BLOOD SPECIMENOrdering Facility: [facility] Address: [address] [place] [address] Performed By: #### A LLBG ####[facility] LABIA [id number] [place] [address] [place] Oxyhemoglobin (BldA) [Mass fraction] 89 % Low 95-98 [facility] Comment on above: Order Comment: Speci men Type: ARTERIAL BLOOD SPECIMENOrdering Facility: [facility] Address: [address] [place] [address] Performed By: #### A LLBG ####[facility] LABIA [id number] [place] [id number] [place] pH (Bld) 7.39 [pH] Normal 7.35-7.45 [facility] Comment on above: Order Comment: Speci men Type: ARTERIAL BLOOD SPECIMENOrdering Facility: [facility] Address: [address] [place] [address] Performed By: #### A LLBG ####[facility] LABCLIA [id number] [place] [address] [place] PO2 / FIO2 RATIO 197 mmHg Low >300 [facility] Comment on above: Order Comment: Speci men Type: ARTERIAL BLOOD SPECIMENOrdering Facility: [facility] Address: [address] [place] [address] Performed By: #### A LLBG ####[facility] LABCLIA [id number] [place] [address] [place] Potassium [Moles/Vol] 4.2 mmol/L Normal 3.5-5.0 [facility] Comment on above: Order Comment: Speci men Type: ARTERIAL BLOOD SPECIMENOrdering Facility: [facility] Address: [address] [place] [address] Performed By: #### A LLBG ####[facility] LABCLIA [id number] [place] [address] [place] Sodium [Moles/Vol] 135 mmol/L Low 136-144 [facility] Comment on above: Order Comment: Speci men Type: ARTERIAL BLOOD SPECIMENOrdering Facility: [facility] Address: [address] [place] [address] Performed By: #### A LLBG ####[facility] LABCLIA [id number] [place] [address] [place] Base deficit (BldA) [Moles/Vol] -3 mmol/L Low -2-0 [facility] Comment on above: Order Comment: Speci men Type: ARTERIAL BLOOD SPECIMENOrdering Facility: [facility] Address: [address] [place] [address] Performed By: #### A LLBG ####[facility] LABCLIA [id number] [place] [address] [place] Calcium.ionized (Bld) [Mass/Vol] 1.18 mmol/L Normal 1.08-1.30 [facility] Comment on above: Order Comment: Speci men Type: ARTERIAL BLOOD SPECIMENOrdering Facility: [facility] Address: [address] [place] [address] Performed By: #### A LLBG ####[facility] LABCLIA [id number] [place] [address] [place] Calcium.ionized adjusted to pH 7.4 (BldA) [Moles/Vol] 1.18 mmol/L Normal 1.08-1.30 [facility] Comment on above: Order Comment: Speci men Type: ARTERIAL BLOOD SPECIMENOrdering Facility: [facility] Address: [address] [place] [address] Performed By: #### A LLBG ####[facility] LABIA [id number] [place] [address] [place] Carboxyhemoglobin (BldA) [Mass fraction] 1.1 % Normal 0.0-2.0 [facility] Comment on above: Order Comment: Speci men Type: ARTERIAL BLOOD SPECIMENOrdering Facility: [facility] Address: [address] [place] [address] Result Comment: Carb oxyhemoglobin Reference Range for Smokers: 2.0-8.0% Performed By: #### A LLBG ####[facility] LABCLIA [id number] [place] [address] [place] CO2 (Bld) [Partial pressure] 34 mm Hg Low 36-46 [facility] Comment on above: Order Comment: Speci men Type: ARTERIAL BLOOD SPECIMENOrdering Facility: [facility] Address: [address] [place] [address] Performed By: #### A LLBG ####[facility] LABCLIA [id number] [place] [address] [place] Glucose [Mass/Vol] 148 mg/dL High 60-105 [facility] Comment on above: Order Comment: Speci men Type: ARTERIAL BLOOD SPECIMENOrdering Facility: [facility] Address: [address] [place] [address] Performed By: #### A LLBG ####[facility] LABCLIA [id number] [place] [address] [place] HCO3 (Bld) [Moles/Vol] 21 mmol/L Low 22-26 [facility] Comment on above: Order Comment: Speci men Type: ARTERIAL BLOOD SPECIMENOrdering Facility: [facility] Address: [address] [place] [address] Performed By: #### A LLBG ####[facility] LABCLIA [id number] [place] [address] [place] Hematocrit (Bld) [Volume fraction] 34.2 % Low 39.0-51.0 [facility] Comment on above: Order Comment: Speci men Type: ARTERIAL BLOOD SPECIMENOrdering Facility: [facility] Address: [address] [place] [address] Performed By: #### A LLBG ####[facility] LABCLIA [id number] [place] [address] [place] Hemoglobin (Bld) [Mass/Vol] 11.1 g/dL Low 13.0-17.0 [facility] Comment on above: Order Comment: Speci men Type: ARTERIAL BLOOD SPECIMENOrdering Facility: [facility] Address: [address] [place] [address] Performed By: #### A LLBG ####[facility] LABCLIA [id number] [place] [address] [place] Lactate [Moles/Vol] 6.4 mmol/L High 0.5-2.2 [facility] Comment on above: Order Comment: Speci men Type: ARTERIAL BLOOD SPECIMENOrdering Facility: [facility] Address: [address] [place] [address] Performed By: #### A LLBG ####[facility] LABCLIA [id number] [place] [address] [place] Methemoglobin (Bld) [Mass fraction] 0.6 % Normal 0.0-1.5 [facility] Comment on above: Order Comment: Speci men Type: ARTERIAL BLOOD SPECIMENOrdering Facility: [facility] Address: [address] [place] [address] Performed By: #### A LLBG ####[facility] LABIA [id number] [place] [address] [place] Oxygen (Bld) [Partial pressure] 93 mm Hg Normal 85-95 [facility] Comment on above: Order Comment: Speci men Type: ARTERIAL BLOOD SPECIMENOrdering Facility: [facility] Address: [address] [place] [address] Performed By: #### A LLBG ####[facility] LABIA [id number] [place] [address] [place] Oxyhemoglobin (BldA) [Mass fraction] 96 % Normal 95-98 [facility] Comment on above: Order Comment: Speci men Type: ARTERIAL BLOOD SPECIMENOrdering Facility: [facility] Address: [address] [place] [address] Performed By: #### A LLBG ####[facility] LABIA [id number] [place] [address] [place] pH (Bld) 7.40 [pH] Normal 7.35-7.45 [facility] Comment on above: Order Comment: Speci men Type: ARTERIAL BLOOD SPECIMENOrdering Facility: [facility] Address: [address] [place] [address] Performed By: #### A LLBG ####[facility] LABIA [id number] [place] [id number] [place] PO2 / FIO2 RATIO 310 mmHg Normal >300 [facility] Comment on above: Order Comment: Speci men Type: ARTERIAL BLOOD SPECIMENOrdering Facility: [facility] Address: [address] [place] [address] Performed By: #### A LLBG ####[facility] LABIA [id number] [place] [address] [place] Potassium [Moles/Vol] 4.3 mmol/L Normal 3.5-5.0 [facility] Comment on above: Order Comment: Speci men Type: ARTERIAL BLOOD SPECIMENOrdering Facility: [facility] Address: [address] [place] [address] Performed By: #### A LLBG ####[facility] [id number] [place] [address] [place] Base deficit (BldA) [Moles/Vol] -2 mmol/L Normal -2-0 [facility] Comment on above: Order Comment: Speci men Type: ARTERIAL BLOOD SPECIMENOrdering Facility: [facility] Address: [address] [place] [address] Performed By: #### A LLBG ####[facility] [id number] [place] [address] [place] Calcium.ionized adjusted to pH 7.4 (BldA) [Moles/Vol] 1.17 mmol/L Normal 1.08-1.30 [facility] Comment on above: Order Comment: Speci men Type: ARTERIAL BLOOD SPECIMENOrdering Facility: [facility] Address: [address] [place] [address] Performed By: #### A LLBG ####[facility] [id number] [place] [address] [place] Carboxyhemoglobin (BldA) [Mass fraction] 1.3 % Normal 0.0-2.0 [facility] Comment on above: Order Comment: Speci men Type: ARTERIAL BLOOD SPECIMENOrdering Facility: [facility] Address: [address] [place] [address] Result Comment: Carb oxyhemoglobin Reference Range for Smokers: 2.0-8.0% Performed By: #### A LLBG ####[facility] LABCLIA [id number] [place] [address] [place] CO2 (Bld) [Partial pressure] 36 mm Hg Normal 36-46 [facility] Comment on above: Order Comment: Speci men Type: ARTERIAL BLOOD SPECIMENOrdering Facility: [facility] Address: [address] [place] [address] Performed By: #### A LLBG ####[facility] LABCLIA [id number] [place] [address] [place] CO2 adjusted to patient's actual temperature (Bld) [Partial pressure] 37 mmHg Normal 36-46 [facility] Comment on above: Order Comment: Speci men Type: ARTERIAL BLOOD SPECIMENOrdering Facility: [facility] Address: [address] [place] [address] Performed By: #### A LLBG ####[facility] LABCLIA [id number] [place] [address] [place] Glucose [Mass/Vol] 143 mg/dL High 60-105 [facility] Comment on above: Order Comment: Speci men Type: ARTERIAL BLOOD SPECIMENOrdering Facility: [facility] Address: [address] [place] [address] Performed By: #### A LLBG ####[facility] LABCLIA [id number] [place] [address] [place] HCO3 (Bld) [Moles/Vol] 22 mmol/L Normal 22-26 [facility] Comment on above: Order Comment: Speci men Type: ARTERIAL BLOOD SPECIMENOrdering Facility: [facility] Address: [address] [place] [address] Performed By: #### A LLBG ####[facility] LABCLIA [id number] [place] [address] [place] Hematocrit (Bld) [Volume fraction] 35.5 % Low 39.0-51.0 [facility] Comment on above: Order Comment: Speci men Type: ARTERIAL BLOOD SPECIMENOrdering Facility: [facility] Address: [address] [place] [address] Performed By: #### A LLBG ####[facility] LABCLIA [id number] [place] [address] [place] Hemoglobin (Bld) [Mass/Vol] 11.5 g/dL Low 13.0-17.0 [facility] Comment on above: Order Comment: Speci men Type: ARTERIAL BLOOD SPECIMENOrdering Facility: [facility] Address: [address] [place] [address] Performed By: #### A LLBG ####[facility] LABCLIA [id number] [place] [address] [place] Lactate [Moles/Vol] 4.8 mmol/L High 0.5-2.2 [facility] Comment on above: Order Comment: Speci men Type: ARTERIAL BLOOD SPECIMENOrdering Facility: [facility] Address: [address] [place] [address] Performed By: #### A LLBG ####[facility] LABCLIA [id number] [place] [address] [place] Methemoglobin (Bld) [Mass fraction] 1.8 % High 0.0-1.5 [facility] Comment on above: Order Comment: Speci men Type: ARTERIAL BLOOD SPECIMENOrdering Facility: [facility] Address: [address] [place] [address] Performed By: #### A LLBG ####[facility] LABCLIA [id number] [place] [address] [place] Oxygen (Bld) [Partial pressure] 101 mm Hg High 85-95 [facility] Comment on above: Order Comment: Speci men Type: ARTERIAL BLOOD SPECIMENOrdering Facility: [facility] Address: [address] [place] [address] Performed By: #### A LLBG ####[facility] LABCLIA [id number] [place] [address] [place] Oxygen adjusted to patient's actual temperature (Bld) [Partial pressure] 103 mmHg High 85-95 [facility] Comment on above: Order Comment: Speci men Type: ARTERIAL BLOOD SPECIMENOrdering Facility: [facility] Address: [address] [place] [address] Performed By: #### A LLBG ####[facility] LABCLIA [id number] [place] [address] [place] Oxyhemoglobin (BldA) [Mass fraction] 95 % Normal 95-98 [facility] Comment on above: Order Comment: Speci men Type: ARTERIAL BLOOD SPECIMENOrdering Facility: [facility] Address: [address] [place] [address] Performed By: #### A LLBG ####[facility] LABCLIA [id number] [place] [address] [place] pH (Bld) 7.40 [pH] Normal 7.35-7.45 [facility] Comment on above: Order Comment: Speci men Type: ARTERIAL BLOOD SPECIMENOrdering Facility: [facility] Address: [address] [place] [address] Performed By: #### A LLBG ####[facility] LABCLIA [id number] [place] [address] [place] pH adjusted to patient's actual temperature (Bld) 7.40 Normal 7.35-7.45 [facility] Comment on above: Order Comment: Speci men Type: ARTERIAL BLOOD SPECIMENOrdering Facility: [facility] Address: [address] [place], [place] [address] Performed By: #### A LLBG ####[facility] LABCLIA [id number] [place] [address] [place] PO2 / FIO2 RATIO 337 mmHg Normal >300 [facility] Comment on above: Order Comment: Speci men Type: ARTERIAL BLOOD SPECIMENOrdering Facility: [facility] Address: [address] [place] [address] Performed By: #### A LLBG ####[facility] LABCLIA [id number] [place] [address] [place] Base deficit (BldA) [Moles/Vol] -1 mmol/L Normal -2-0 [facility] Comment on above: Order Comment: Speci men Type: ARTERIAL BLOOD SPECIMENOrdering Facility: [facility] Address: [address] [place] [address] Performed By: #### A LLBG ####[facility] LABCLIA [id number] [place] [address] [place] Body temperature 99.68 [degF] Normal [facility] Comment on above: Order Comment: Speci men Type: ARTERIAL BLOOD SPECIMENOrdering Facility: [facility] Address: [address] [place] [address] Performed By: #### A LLBG ####[facility] LABCLIA [id number] [place] [address] [place] Order Comment: Speci men Type: VENOUS BLOOD SPECIMENOrdering Facility: [facility] Address: [address] [place] [address] Performed By: #### 2 4344-4 ####[facility] LABCLIA [id number] [place] [address] [place] Calcium.ionized (Bld) [Mass/Vol] 1.19 mmol/L Normal 1.08-1.30 [facility] Comment on above: Order Comment: Speci men Type: ARTERIAL BLOOD SPECIMENOrdering Facility: [facility] Address: [address] [place] [address] Performed By: #### A LLBG ####[facility] LABIA [id number] [place] [address] [place] Calcium.ionized adjusted to pH 7.4 (BldA) [Moles/Vol] 1.20 mmol/L Normal 1.08-1.30 [facility] Comment on above: Order Comment: Speci men Type: ARTERIAL BLOOD SPECIMENOrdering Facility: [facility] Address: [address] [place] [address] Performed By: #### A LLBG ####[facility] LABIA [id number] [place] [address] [place] Carboxyhemoglobin (BldA) [Mass fraction] 1.2 % Normal 0.0-2.0 [facility] Comment on above: Order Comment: Speci men Type: ARTERIAL BLOOD SPECIMENOrdering Facility: [facility] Address: [address] [place] [address] Result Comment: Carb oxyhemoglobin Reference Range for Smokers: 2.0-8.0% Performed By: #### A LLBG ####[facility] [id number] [place] [address] [place] CO2 (Bld) [Partial pressure] 37 mm Hg Normal 36-46 [facility] Comment on above: Order Comment: Speci men Type: ARTERIAL BLOOD SPECIMENOrdering Facility: [facility] Address: [address] [place] [address] Performed By: #### A LLBG ####[facility] LABIA [id number] [place] [address] [place] CO2 adjusted to patient's actual temperature (Bld) [Partial pressure] 38 mmHg Normal 36-46 [facility] Comment on above: Order Comment: Speci men Type: ARTERIAL BLOOD SPECIMENOrdering Facility: [facility] Address: [address] [place] [address] Performed By: #### A LLBG ####[facility] LABIA [id number] [place] [address] [place] FIO2 30 % Normal [facility] Comment on above: Order Comment: Speci men Type: ARTERIAL BLOOD SPECIMENOrdering Facility: [facility] Address: [address] [place] [address] Performed By: #### A LLBG ####[facility] LABCLIA [id number] [place] [address] [place] Order Comment: Speci men Type: VENOUS BLOOD SPECIMENOrdering Facility: [facility] Address: [address] [place] [address] Performed By: #### 2 4344-4 ####[facility] LABCLIA [id number] [place] [address] [place] Glucose [Mass/Vol] 137 mg/dL High 60-105 [facility] Comment on above: Order Comment: Speci men Type: ARTERIAL BLOOD SPECIMENOrdering Facility: [facility] Address: [address] [place] [address] Performed By: #### A LLBG ####[facility] LABCLIA [id number] [place] [address] [place] HCO3 (Bld) [Moles/Vol] 23 mmol/L Normal 22-26 [facility] Comment on above: Order Comment: Speci men Type: ARTERIAL BLOOD SPECIMENOrdering Facility: [facility] Address: [address] [place] [address] Performed By: #### A LLBG ####[facility] LABCLIA [id number] [place] [address] [place] Hematocrit (Bld) [Volume fraction] 36.9 % Low 39.0-51.0 [facility] Comment on above: Order Comment: Speci men Type: ARTERIAL BLOOD SPECIMENOrdering Facility: [facility] Address: [address] [place] [address] Performed By: #### A LLBG ####[facility] LABCLIA [id number] [place] [address] [place] Hemoglobin (Bld) [Mass/Vol] 12.0 g/dL Low 13.0-17.0 [facility] Comment on above: Order Comment: Speci men Type: ARTERIAL BLOOD SPECIMENOrdering Facility: [facility] Address: [address] [place] [address] Performed By: #### A LLBG ####[facility] LABCLIA [id number] [place] [address] [place] Lactate [Moles/Vol] 4.6 mmol/L High 0.5-2.2 [facility] Comment on above: Order Comment: Speci men Type: ARTERIAL BLOOD SPECIMENOrdering Facility: [facility] Address: [address] [place] [address] Performed By: #### A LLBG ####[facility] LABCLIA [id number] [place] [address] [place] Methemoglobin (Bld) [Mass fraction] 1.6 % High 0.0-1.5 [facility] Comment on above: Order Comment: Speci men Type: ARTERIAL BLOOD SPECIMENOrdering Facility: [facility] Address: [address] [place] [address] Performed By: #### A LLBG ####[facility] LABCLIA [id number] [place] [address] [place] O2 THERAPY VENT=Ventilator Normal [facility] Comment on above: Order Comment: Speci men Type: ARTERIAL BLOOD SPECIMENOrdering Facility: [facility] Address: [address] [place] [address] Performed By: #### A LLBG ####[facility] LABCLIA [id number] [place] [address] [place] Order Comment: Speci men Type: VENOUS BLOOD SPECIMENOrdering Facility: [facility] Address: [address] [place] [address] Performed By: #### 2 4344-4 ####[facility] LABCLIA [id number] [address] [address] [place] Oxygen (Bld) [Partial pressure] 123 mm Hg High 85-95 [facility] Comment on above: Order Comment: Speci men Type: ARTERIAL BLOOD SPECIMENOrdering Facility: [facility] Address: [address] [place] [id number] Performed By: #### A LLBG ####[facility] LABCLIA [id number] [address] [address] [place] Oxygen adjusted to patient's actual temperature (Bld) [Partial pressure] 127 mmHg High 85-95 [facility] Comment on above: Order Comment: Speci men Type: ARTERIAL BLOOD SPECIMENOrdering Facility: [facility] Address: [address] [place] [address] Performed By: #### A LLBG ####[facility] LABCLIA [id number] [place] [address] [place] Oxyhemoglobin (BldA) [Mass fraction] 96 % Normal 95-98 [facility] Comment on above: Order Comment: Speci men Type: ARTERIAL BLOOD SPECIMENOrdering Facility: [facility] Address: [address] [place] [address] Performed By: #### A LLBG ####[facility] LABCLIA [id number] [place] [id number] [place] PEEP/CPAP 8 cmH2O Normal [facility] Comment on above: Order Comment: Speci men Type: ARTERIAL BLOOD SPECIMENOrdering Facility: [facility] Address: [address] [id number] Performed By: #### A LLBG ####[facility] LABCLIA [id number] [place] [id number] [place] Order Comment: Speci men Type: VENOUS BLOOD SPECIMENOrdering Facility: [facility] Address: [address] [id number] Performed By: #### 2 4344-4 ####[facility] LABCLIA [id number] [place] [address] [place] pH (Bld) 7.41 [pH] Normal 7.35-7.45 [facility] Comment on above: Order Comment: Speci men Type: ARTERIAL BLOOD SPECIMENOrdering Facility: [facility] Address: [address] [place] [address] Performed By: #### A LLBG ####[facility] LABCLIA [id number] [place] [address] [place] pH adjusted to patient's actual temperature (Bld) 7.40 Normal 7.35-7.45 [facility] Comment on above: Order Comment: Speci men Type: ARTERIAL BLOOD SPECIMENOrdering Facility: [facility] Address: [address] [place] [address] Performed By: #### A LLBG ####[facility] LABCLIA [id number] [place] [address] [place] PO2 / FIO2 RATIO 410 mmHg Normal >300 [facility] Comment on above: Order Comment: Speci men Type: ARTERIAL BLOOD SPECIMENOrdering Facility: [facility] Address: [address] [place] [address] Performed By: #### A LLBG ####[facility] LABCLIA [id number] [place] [address] [place] Potassium [Moles/Vol] 4.7 mmol/L Normal 3.5-5.0 [facility] Comment on above: Order Comment: Speci men Type: ARTERIAL BLOOD SPECIMENOrdering Facility: [facility] Address: [address] [place] [address] Performed By: #### A LLBG ####[facility] LABCLIA [id number] [place] [address] [place] SET VENTILATOR RESPIRATORY RATE (BPM) 24 BPM Normal [facility] Comment on above: Order Comment: Speci men Type: ARTERIAL BLOOD SPECIMENOrdering Facility: [facility] Address: [address] [place] [address] Performed By: #### A LLBG ####[facility] LABCLIA [id number] [place] [address] [place] Order Comment: Speci men Type: VENOUS BLOOD SPECIMENOrdering Facility: [facility] Address: [address] [place] [address] Performed By: #### 2 4344-4 ####[facility] LABCLIA [id number] [place] [address] [place] Base deficit (BldA) [Moles/Vol] -1 mmol/L Normal -2-0 [facility] Comment on above: Order Comment: Speci men Type: ARTERIAL BLOOD SPECIMENOrdering Facility: [facility] Address: [address] [place] [address] Performed By: #### A LLBG ####[facility] LABCLIA [id number] [place] [address] [place] Body temperature 100.94 [degF] Normal [facility] Comment on above: Order Comment: Speci men Type: ARTERIAL BLOOD SPECIMENOrdering Facility: [facility] Address: [address] [place] [address] Performed By: #### A LLBG ####[facility] LABCLIA [id number] [place] [address] [place] Order Comment: Speci men Type: VENOUS BLOOD SPECIMENOrdering Facility: [facility] Address: [address] [place] [address] Performed By: #### 2 4344-4 ####[facility] LABCLIA [id number] [place] [address] [place] Calcium.ionized (Bld) [Mass/Vol] 1.22 mmol/L Normal 1.08-1.30 [facility] Comment on above: Order Comment: Speci men Type: ARTERIAL BLOOD SPECIMENOrdering Facility: [facility] Address: [address] [place] [address] Performed By: #### A LLBG ####[facility] LABCLIA [id number] [place] [address] [place] Calcium.ionized adjusted to pH 7.4 (BldA) [Moles/Vol] 1.21 mmol/L Normal 1.08-1.30 [facility] Comment on above: Order Comment: Speci men Type: ARTERIAL BLOOD SPECIMENOrdering Facility: [facility] Address: [address] [place] [address] Performed By: #### A LLBG ####[facility] LABCLIA [id number] [place] [address] [place] Carboxyhemoglobin (BldA) [Mass fraction] 1.5 % Normal 0.0-2.0 [facility] Comment on above: Order Comment: Speci men Type: ARTERIAL BLOOD SPECIMENOrdering Facility: [facility] Address: [address] [place] [address] Result Comment: Carb oxyhemoglobin Reference Range for Smokers: 2.0-8.0% Performed By: #### A LLBG ####[facility] LABCLIA [id number] [place] [address] [place] CO2 (Bld) [Partial pressure] 41 mm Hg Normal 36-46 [facility] Comment on above: Order Comment: Speci men Type: ARTERIAL BLOOD SPECIMENOrdering Facility: [facility] Address: [address] [place] [address] Performed By: #### A LLBG ####[facility] LABCLIA [id number] [place] [address] [place] CO2 adjusted to patient's actual temperature (Bld) [Partial pressure] 43 mmHg Normal 36-46 [facility] Comment on above: Order Comment: Speci men Type: ARTERIAL BLOOD SPECIMENOrdering Facility: [facility] Address: [address] [place] [address] Performed By: #### A LLBG ####[facility] LABCLIA [id number] [place] [address] [place] FIO2 30 % Normal [facility] Comment on above: Order Comment: Speci men Type: ARTERIAL BLOOD SPECIMENOrdering Facility: [facility] Address: [address] [place] [address] Performed By: #### A LLBG ####[facility] LABCLIA [id number] [place] [address] [place] Order Comment: Speci men Type: VENOUS BLOOD SPECIMENOrdering Facility: [facility] Address: [address] [place] [address] Performed By: #### 2 4344-4 ####[facility] LABCLIA [id number] [place] [address] [place] Glucose [Mass/Vol] 139 mg/dL High 60-105 [facility] Comment on above: Order Comment: Speci men Type: ARTERIAL BLOOD SPECIMENOrdering Facility: [facility] Address: [address] [place] [address] Performed By: #### A LLBG ####[facility] LABCLIA [id number] [place] [address] [place] HCO3 (Bld) [Moles/Vol] 24 mmol/L Normal 22-26 Cl [facility] Comment on above: Order Comment: Speci men Type: ARTERIAL BLOOD SPECIMENOrdering Facility: [facility] Address: [address] [place] [address] Performed By: #### A LLBG ####[facility] LABCLIA [id number] [place] [address] [place] Hematocrit (Bld) [Volume fraction] 37.1 % Low 39.0-51.0 [facility] Comment on above: Order Comment: Speci men Type: ARTERIAL BLOOD SPECIMENOrdering Facility: [facility] Address: [address] [place] [address] Performed By: #### A LLBG ####[facility] LABCLIA [id number] [place] [address] [place] Hemoglobin (Bld) [Mass/Vol] 12.1 g/dL Low 13.0-17.0 [facility] Comment on above: Order Comment: Speci men Type: ARTERIAL BLOOD SPECIMENOrdering Facility: [facility] Address: [address] [place] [address] Performed By: #### A LLBG ####[facility] LABCLIA [id number] [place] [address] [place] Lactate [Moles/Vol] 4.2 mmol/L High 0.5-2.2 [facility] Comment on above: Order Comment: Speci men Type: ARTERIAL BLOOD SPECIMENOrdering Facility: [facility] Address: [address] [place] [address] Performed By: #### A LLBG ####[facility] LABCLIA [id number] [place] [address] [place] Order Comment: Speci men Type: VENOUS BLOOD SPECIMENOrdering Facility: [facility] Address: [address] [place] [address] Performed By: #### 2 4344-4 ####[facility] LABCLIA [id number] [place] [address] [place] Methemoglobin (Bld) [Mass fraction] 0.9 % Normal 0.0-1.5 [facility] Comment on above: Order Comment: Speci men Type: ARTERIAL BLOOD SPECIMENOrdering Facility: [facility] Address: [address] [place] [address] Performed By: #### A LLBG ####[facility] LABCLIA [id number] [place] [address] [place] O2 THERAPY VENT=Ventilator Normal [facility] Comment on above: Order Comment: Speci men Type: ARTERIAL BLOOD SPECIMENOrdering Facility: [facility] Address: [address] [place] [address] Performed By: #### A LLBG ####[facility] LABCLIA [id number] [place] [address] [place] Order Comment: Speci men Type: VENOUS BLOOD SPECIMENOrdering Facility: [facility] Address: [address] [place] [address] Performed By: #### 2 4344-4 ####[facility] LABCLIA [id number] [place] [address] [place] Oxygen (Bld) [Partial pressure] 123 mm Hg High 85-95 [facility] Comment on above: Order Comment: Speci men Type: ARTERIAL BLOOD SPECIMENOrdering Facility: [facility] Address: [address] [place] [address] Performed By: #### A LLBG ####[facility] LABCLIA [id number] [place] [address] [place] Oxygen adjusted to patient's actual temperature (Bld) [Partial pressure] 131 mmHg High 85-95 [facility] Comment on above: Order Comment: Speci men Type: ARTERIAL BLOOD SPECIMENOrdering Facility: [facility] Address: [address] [place], [place] [address] Performed By: #### A LLBG ####[facility] LABCLIA [id number] [place] [id number] [place] Oxyhemoglobin (BldA) [Mass fraction] 97 % Normal 95-98 [facility] Comment on above: Order Comment: Speci men Type: ARTERIAL BLOOD SPECIMENOrdering Facility: [facility] Address: [address] [place], [place] [address] Performed By: #### A LLBG ####[facility] LABCLIA [id number] [place] [address] [place] PEEP/CPAP 8 cmH2O Normal [facility] Comment on above: Order Comment: Speci men Type: ARTERIAL BLOOD SPECIMENOrdering Facility: [facility] Address: [address] [place] [address] Performed By: #### A LLBG ####[facility] LABCLIA [id number] [place] [address] [place] Order Comment: Speci men Type: VENOUS BLOOD SPECIMENOrdering Facility: [facility] Address: [address] [place] [address] Performed By: #### 2 4344-4 ####[facility] LABCLIA [id number] [place] [address] [place] pH (Bld) 7.39 [pH] Normal 7.35-7.45 [facility] Comment on above: Order Comment: Speci men Type: ARTERIAL BLOOD SPECIMENOrdering Facility: [facility] Address: [address] [place] [address] Performed By: #### A LLBG ####[facility] LABCLIA [id number] [address] [place] pH adjusted to patient's actual temperature (Bld) 7.37 Normal 7.35-7.45 [facility] Comment on above: Order Comment: Speci men Type: ARTERIAL BLOOD SPECIMENOrdering Facility: [facility] Address: [address] [place] [address] Performed By: #### A LLBG ####[facility] LABCLIA [id number] [place] [address] [place] PO2 / FIO2 RATIO 410 mmHg Normal >300 [facility] Comment on above: Order Comment: Speci men Type: ARTERIAL BLOOD SPECIMENOrdering Facility: [facility] Address: [address] [place] [address] Performed By: #### A LLBG ####[facility] LABCLIA [id number] [place] [address] [place] Potassium [Moles/Vol] 4.9 mmol/L Normal 3.5-5.0 [facility] Comment on above: Order Comment: Speci men Type: ARTERIAL BLOOD SPECIMENOrdering Facility: [facility] Address: [address] [place] [address] Performed By: #### A LLBG ####[facility] LABCLIA [id number] [place] [address] [place] SET VENTILATOR RESPIRATORY RATE (BPM) 24 BPM Normal [facility] Comment on above: Order Comment: Speci men Type: ARTERIAL BLOOD SPECIMENOrdering Facility: [facility] Address: [address] [place] [address] Performed By: #### A LLBG ####[facility] LABCLIA [id number] [place] [address] [place] Sodium [Moles/Vol] 138 mmol/L Normal 136-144 [facility] Comment on above: Order Comment: Speci men Type: ARTERIAL BLOOD SPECIMENOrdering Facility: [facility] Address: [address] [place] [address] Performed By: #### A LLBG ####[facility] LABCLIA [id number] [place] [address] [place] CBC panel Auto (Bld)on 01-23 Erythrocyte distribution width (RBC) [Ratio] 15.2 % High 11.5-15.0 [facility] Comment on above: Order Comment: Speci men Type: BLOOD SPECIMENOrdering Facility: [facility] Address: [address] [place] [address] Performed By: #### 5 8410-2 ####[facility] LABCLIA [id number] [place] [address] [place] Hematocrit (Bld) [Volume fraction] 36.5 % Low 39.0-51.0 [facility] Comment on above: Order Comment: Speci men Type: BLOOD SPECIMENOrdering Facility: [facility] Address: [address] [place] [address] Performed By: #### 5 8410-2 ####[facility] LABIA [id number] [place] [address] [place] Hemoglobin (Bld) [Mass/Vol] 11.7 g/dL Low 13.0-17.0 [facility] Comment on above: Order Comment: Speci men Type: BLOOD SPECIMENOrdering Facility: [facility] Address: [address] [place] [address] Performed By: #### 5 8410-2 ####[facility] LABIA [id number] [place] [address] [place] MCH (RBC) [Entitic mass] 27.5 pg Normal 26.0-34.0 [facility] Comment on above: Order Comment: Speci men Type: BLOOD SPECIMENOrdering Facility: [facility] Address: [address] [place] [address] Performed By: #### 5 8410-2 ####[facility] LABIA [id number] [place] [address] [place] MCHC (RBC) [Mass/Vol] 32.1 g/dL Normal 30.5-36.0 [facility] Comment on above: Order Comment: Speci men Type: BLOOD SPECIMENOrdering Facility: [facility] Address: [address] [place] [place] [address] Performed By: #### 5 8410-2 ####[facility] LABIA [id number] [place] [address] [place] MCV (RBC) [Entitic vol] 85.9 fL Normal 80.0-100.0 [facility] Comment on above: Order Comment: Speci men Type: BLOOD SPECIMENOrdering Facility: [facility] Address: [address] [place] [address] Performed By: #### 5 8410-2 ####[facility] LABCLIA [id number] [address] [address] [place] Platelet mean volume (Bld) [Entitic vol] 10.7 fL Normal 9.0-12.7 [facility] Comment on above: Order Comment: Speci men Type: BLOOD SPECIMENOrdering Facility: [facility] Address: [address] [place] [address] Performed By: #### 5 8410-2 ####[facility] LABIA [id number] [place] [address] [place] Platelets (Bld) [#/Vol] 152 10*3/uL Normal 150-400 [facility] Comment on above: Order Comment: Speci men Type: BLOOD SPECIMENOrdering Facility: [facility] Address: [address] [place] [address] Performed By: #### 5 8410-2 ####[facility] LABIA [id number] [place] [address] [place] RBC (Bld) [#/Vol] 4.25 10*6/uL Normal 4.20-6.00 [facility] Comment on above: Order Comment: Speci men Type: BLOOD SPECIMENOrdering Facility: [facility] Address: [address] [place] [address] Performed By: #### 5 8410-2 ####[facility] LABIA [id number] [place] [address] [place] WBC (Bld) [#/Vol] 16.30 10*3/uL High 3.70-11.00 [facility] Comment on above: Order Comment: Speci men Type: BLOOD SPECIMENOrdering Facility: [facility] Address: [address] [place] [address] Performed By: #### 5 8410-2 ####[facility] LABIA [id number] [place] [address] [place] CK SerPl-cCncon 01-24-2024 CK [Catalytic activity/Vol] 754 U/L High 51-298 [facility] Comment on above: Order Comment: Speci men Type: BLOOD SPECIMENOrdering Facility: [facility] Address: [address] [place] [address] Performed By: #### 2 157-6 ####[facility] LABCLIA [id number] [place] [address] [place] Comp Metab 2000 Pnl SerPlon 01-24-2024 Sodium [Moles/Vol] 138 mmol/L Normal 136-144 [facility] Comment on above: Order Comment: Speci men Type: BLOOD SPECIMENOrdering Facility: [facility] Address: [address] [place] [address] Performed By: #### 2 4323-8 ####[facility] LABCLIA [id number] [place] [address] [place] Order Comment: Speci men Type: VENOUS BLOOD SPECIMENOrdering Facility: [facility] Address: [address] [place] [address] Performed By: #### 2 4344-4 ####[facility] LABCLIA [id number] [address] [place] Order Comment: Speci men Type: ARTERIAL BLOOD SPECIMENOrdering Facility: [facility] Address: [address] [place] [address] Performed By: #### A LLBG ####[facility] LABCLIA [id number] [place] [address] [place] Potassium [Moles/Vol] 4.5 mmol/L Normal 3.5-5.0 [facility] Comment on above: Order Comment: Speci men Type: BLOOD SPECIMENOrdering Facility: [facility] Address: [address] [place] [address] Performed By: #### 2 4323-8 ####[facility] LABCLIA [id number] [place] [address] [place] Order Comment: Speci men Type: ARTERIAL BLOOD SPECIMENOrdering Facility: [facility] Address: [address] [place] [address] Performed By: #### A LLBG ####[facility] LABCLIA [id number] [place] [address] [place] Comprehensive metabolic 2000 panelon 01-24-2024 Albumin [Mass/Vol] 4.3 g/dL Normal 3.9-4.9 [facility] Comment on above: Order Comment: Speci men Type: BLOOD SPECIMENOrdering Facility: [facility] Address: [address] [place] [address] Performed By: #### 2 4323-8, HSTNT ####[facility] LABCLIA [id number] [place] [address] [place] ALP [Catalytic activity/Vol] 42 U/L Normal 38-113 [facility] Comment on above: Order Comment: Speci men Type: BLOOD SPECIMENOrdering Facility: [facility] Address: [address] [place] [address] Performed By: #### 2 4323-8, HSTNT ####[facility] LABCLIA [id number] [place] [address] [place] ALT [Catalytic activity/Vol] 23 U/L Normal 10-54 [facility] Comment on above: Order Comment: Speci men Type: BLOOD SPECIMENOrdering Facility: [facility] Address: [address] [place] [address] Performed By: #### 2 4323-8, HSTNT ####[facility] LABCLIA [id number] [place] [address] [place] Anion gap [Moles/Vol] 15 mmol/L Normal 8-15 [facility] Comment on above: Order Comment: Speci men Type: BLOOD SPECIMENOrdering Facility: [facility] Address: [address] [place] [address] Performed By: #### 2 4323-8, HSTNT ####[facility] LABCLIA [id number] [place] [address] [place] AST [Catalytic activity/Vol] 76 U/L High 14-40 [facility] Comment on above: Order Comment: Speci men Type: BLOOD SPECIMENOrdering Facility: [facility] Address: [address] [place] [address] Performed By: #### 2 4323-8, HSTNT ####[facility] LABIA [id number] [place] [address] [place] Bilirubin [Mass/Vol] 0.4 mg/dL Normal 0.2-1.3 [facility] Comment on above: Order Comment: Speci men Type: BLOOD SPECIMENOrdering Facility: [facility] Address: [address] [place] [address] Performed By: #### 2 4323-8, HSTNT ####[facility] LABCLIA [id number] [place] [address] [place] Calcium [Mass/Vol] 9.5 mg/dL Normal 8.5-10.2 [facility] Comment on above: Order Comment: Speci men Type: BLOOD SPECIMENOrdering Facility: [facility] Address: [address] [place] [address] Performed By: #### 2 4323-8, HSTNT ####[facility] LABIA [id number] [place] [address] [place] Chloride [Moles/Vol] 102 mmol/L Normal 98-107 [facility] Comment on above: Order Comment: Speci men Type: BLOOD SPECIMENOrdering Facility: [facility] Address: [address] [place] [address] Performed By: #### 2 4323-8, HSTNT ####[facility] LABCLIA [id number] [place] [address] [place] CO2 [Moles/Vol] 22 mmol/L Normal 22-30 [facility] Comment on above: Order Comment: Speci men Type: BLOOD SPECIMENOrdering Facility: [facility] Address: [address] [place] [address] Performed By: #### 2 4323-8, HSTNT ####[facility] LABIA [id number] [place] [address] [place] Creatinine [Mass/Vol] 1.37 mg/dL High 0.73-1.22 [facility] Comment on above: Order Comment: Speci men Type: BLOOD SPECIMENOrdering Facility: [facility] Address: [address] [place] [address] Performed By: #### 2 4323-8, HSTNT ####[facility] [id number] [place] [address] [place] Creatinine and Glomerular filtration rate.predicted panel (S/P/Bld) 57 mL/min/1.73m??? Low >=60 [facility] Comment on above: Order Comment: Speci men Type: BLOOD SPECIMENOrdering Facility: [facility] Address: [address] [place] [address] Result Comment: Talisha mated Glomerular Filtration Rate [...] GFR. Performed By: #### 2 4323-8, HSTNT ####[facility] LABCLIA [id number] [place] [address] [place] Potassium [Moles/Vol] 5.0 mmol/L Normal 3.7-5.1 [facility] Comment on above: Order Comment: Speci men Type: BLOOD SPECIMENOrdering Facility: [facility] Address: [address] [place], [place] [address] Performed By: #### 2 4323-8, HSTNT ####[facility] LABCLIA [id number] [address] [address] [place] Protein [Mass/Vol] 6.5 g/dL Normal 6.3-8.0 [facility] Comment on above: Order Comment: Speci men Type: BLOOD SPECIMENOrdering Facility: [facility] Address: [address] [place] [address] Performed By: #### 2 4323-8, HSTNT ####[facility] LABCLIA [id number] [address] [address] [place] Urea nitrogen [Mass/Vol] 28 mg/dL High 9-24 [facility] Comment on above: Order Comment: Speci men Type: BLOOD SPECIMENOrdering Facility: [facility] Address: [address] [place] [address] Performed By: #### 2 4323-8, HSTNT ####[facility] LABCLIA [id number] [address] [address] [place] ECHO LIMITEDon 01-24-2024 ECHO LIMITED Normal [facility] Gas + CO Pnl BldVon 01-24-20 Body temperature 98.6 [degF] Normal [facility] Comment on above: Order Comment: Speci men Type: VENOUS BLOOD SPECIMENOrdering Facility: [facility] Address: [address] [place], [place] [address] Performed By: #### 2 4344-4 ####[facility] LABCLIA [id number] [address] [address] [place] Order Comment: Speci men Type: ARTERIAL BLOOD SPECIMENOrdering Facility: [facility] Address: [address] [place] [address] Performed By: #### A LLBG ####[facility] LABCLIA [id number] [place] [address] [place] FIO2 30 % Normal [facility] Comment on above: Order Comment: Speci men Type: VENOUS BLOOD SPECIMENOrdering Facility: [facility] Address: [address] [place] [address] Performed By: #### 2 4344-4 ####[facility] LABCLIA [id number] [address] [place] Order Comment: Speci men Type: ARTERIAL BLOOD SPECIMENOrdering Facility: [facility] Address: [facility] [place] [address] Performed By: #### A LLBG ####[facility] LABCLIA [id number] [place] [address] [place] Hematocrit (Bld) [Volume fraction] 32.3 % Low 39.0-51.0 [facility] Comment on above: Order Comment: Speci men Type: VENOUS BLOOD SPECIMENOrdering Facility: [facility] Address: [address] [place] [address] Performed By: #### 2 4344-4 ####[facility] LABCLIA [id number] [address] [place] Order Comment: Speci men Type: ARTERIAL BLOOD SPECIMENOrdering Facility: [facility] Address: [address] [place] [address] Performed By: #### A LLBG ####[facility] LABCLIA [id number] [place] [address] [place] Hemoglobin (Bld) [Mass/Vol] 10.5 g/dL Low 13.0-17.0 [facility] Comment on above: Order Comment: Speci men Type: VENOUS BLOOD SPECIMENOrdering Facility: [facility] Address: [address] [place] [address] Performed By: #### 2 4344-4 ####[facility] LABCLIA [id number] [place] [id number] [place] Order Comment: Speci men Type: ARTERIAL BLOOD SPECIMENOrdering Facility: [facility] Address: [address] [place] [address] Performed By: #### A LLBG ####[facility] LABCLIA [id number] [place] [address] [place] O2 THERAPY VENT=Ventilator Normal [facility] Comment on above: Order Comment: Speci men Type: VENOUS BLOOD SPECIMENOrdering Facility: [facility] Address: [address] [place] [address] Performed By: #### 2 4344-4 ####[facility] LABCLIA [id number] [place] [address] [place] Order Comment: Speci men Type: ARTERIAL BLOOD SPECIMENOrdering Facility: [facility] Address: [address] [place] [address] Performed By: #### A LLBG ####[facility] LABCLIA [id number] [place] [address] [place] Body temperature 98.6 [degF] Normal [facility] Comment on above: Order Comment: Speci men Type: VENOUS BLOOD SPECIMENOrdering Facility: [facility] Address: [address] [place] [address] Performed By: #### 2 4344-4 ####[facility] LABCLIA [id number] [place] [id number] [place] Order Comment: Speci men Type: ARTERIAL BLOOD SPECIMENOrdering Facility: [facility] Address: [address] [place] [address] Performed By: #### A LLBG ####[facility] LABCLIA [id number] [place] [address] [place] FIO2 30 % Normal [facility] Comment on above: Order Comment: Speci men Type: VENOUS BLOOD SPECIMENOrdering Facility: [facility] Address: [address] [place] [address] Performed By: #### 2 4344-4 ####[facility] LABCLIA [id number] [address] [address] [place] Order Comment: Speci men Type: ARTERIAL BLOOD SPECIMENOrdering Facility: [facility] Address: [address] [place] [id number] Performed By: #### A LLBG ####[facility] LABCLIA [id number] [place] [id number] [place] O2 THERAPY VENT=Ventilator Normal [facility] Comment on above: Order Comment: Speci men Type: VENOUS BLOOD SPECIMENOrdering Facility: [facility] Address: [address] [place], [place] [address] Performed By: #### 2 4344-4 ####[facility] LABCLIA [id number] [address] [address] [place] Order Comment: Speci men Type: ARTERIAL BLOOD SPECIMENOrdering Facility: [facility] Address: [address] [place] [id number] Performed By: #### A LLBG ####[facility] LABCLIA [id number] [address] [address] [place] Potassium [Moles/Vol] 3.9 mmol/L Normal 3.5-5.0 [facility] Comment on above: Order Comment: Speci men Type: VENOUS BLOOD SPECIMENOrdering Facility: [facility] Address: [address] [place] [id number] Performed By: #### 2 4344-4 ####[facility] LABCLIA [id number] [place] [id number] [place] Order Comment: Speci men Type: ARTERIAL BLOOD SPECIMENOrdering Facility: [facility] Address: [address] [place] [id number] Performed By: #### A LLBG ####[facility] LABCLIA [id number] [address] [address] [place] Sodium [Moles/Vol] 139 mmol/L Normal 136-144 [facility] Comment on above: Order Comment: Speci men Type: VENOUS BLOOD SPECIMENOrdering Facility: [facility] Address: [address] [place] [id number] Performed By: #### 2 4344-4 ####[facility] LABCLIA [id number] [place] [id number] [place] Order Comment: Speci men Type: BLOOD SPECIMENOrdering Facility: [facility] Address: [address] [place] [id number] Performed By: #### 2 4323-8, HSTNT ####[facility] LABCLIA [id number] [place] [address] [place] Body temperature 98.6 [degF] Normal [facility] Comment on above: Order Comment: Speci men Type: VENOUS BLOOD SPECIMENOrdering Facility: [facility] Address: [address] [place] [id number] Performed By: #### 2 4344-4 ####[facility] LABCLIA [id number] [place] [address] [place] Order Comment: Speci men Type: ARTERIAL BLOOD SPECIMENOrdering Facility: [facility] Address: [address] [place] [id number] Performed By: #### A LLBG ####[facility] LABCLIA [id number] [place] [address] [place] FIO2 100 % Normal [facility] Comment on above: Order Comment: Speci men Type: VENOUS BLOOD SPECIMENOrdering Facility: [facility] Address: [address] [place] [id number] Performed By: #### 2 4344-4 ####[facility] LABCLIA [id number] [address] [place] Order Comment: Speci men Type: ARTERIAL BLOOD SPECIMENOrdering Facility: [facility] Address: [address] [place] [address] Performed By: #### A LLBG ####[facility] LABCLIA [id number] [place] [address] [place] Methemoglobin (Bld) [Mass fraction] 0.6 % Normal 0.0-1.5 [facility] Comment on above: Order Comment: Speci men Type: VENOUS BLOOD SPECIMENOrdering Facility: [facility] Address: [address] [place] [address] Performed By: #### 2 4344-4 ####[facility] LABCLIA [id number] [address] [place] Order Comment: Speci men Type: ARTERIAL BLOOD SPECIMENOrdering Facility: [facility] Address: [address] [place] [address] Performed By: #### A LLBG ####[facility] LABCLIA [id number] [place] [address] [place] O2 THERAPY VENT=Ventilator Normal [facility] Comment on above: Order Comment: Speci men Type: VENOUS BLOOD SPECIMENOrdering Facility: [facility] Address: [address] [place] [address] Performed By: #### 2 4344-4 ####[facility] LABCLIA [id number] [place] [address] [place] Order Comment: Speci men Type: ARTERIAL BLOOD SPECIMENOrdering Facility: [facility] Address: [address] [place] [address] Performed By: #### A LLBG ####[facility] LABCLIA [id number] [place] [address] [place] Potassium [Moles/Vol] 4.1 mmol/L Normal 3.5-5.0 [facility] Comment on above: Order Comment: Speci men Type: VENOUS BLOOD SPECIMENOrdering Facility: [facility] Address: [address] [place] [address] Performed By: #### 2 4344-4 ####[facility] LABCLIA [id number] [address] [address] [place] Order Comment: Speci men Type: ARTERIAL BLOOD SPECIMENOrdering Facility: [facility] Address: [address] [place] [address] Performed By: #### A LLBG ####[facility] LABCLIA [id number] [address] [place] Body temperature 98.6 [degF] Normal [facility] Comment on above: Order Comment: Speci men Type: VENOUS BLOOD SPECIMENOrdering Facility: [facility] Address: [address] [place] [address] Performed By: #### 2 4344-4 ####[facility] LABCLIA [id number] [place] [id number] [place] Order Comment: Speci men Type: ARTERIAL BLOOD SPECIMENOrdering Facility: [facility] Address: [address] [place] [address] Performed By: #### A LLBG ####[facility] LABCLIA [id number] [address] [place] FIO2 30 % Normal [facility] Comment on above: Order Comment: Speci men Type: VENOUS BLOOD SPECIMENOrdering Facility: [facility] Address: [address] [place] [id number] Performed By: #### 2 4344-4 ####[facility] LABCLIA [id number] [place] [id number] [place] Order Comment: Speci men Type: ARTERIAL BLOOD SPECIMENOrdering Facility: [facility] Address: [address], [place] [address] Performed By: #### A LLBG ####[facility] LABCLIA [id number] [place] [id number] [place] O2 THERAPY VENT=Ventilator Normal [facility] Comment on above: Order Comment: Speci men Type: VENOUS BLOOD SPECIMENOrdering Facility: [facility] Address: [address] [place], [place] [address] Performed By: #### 2 4344-4 ####[facility] LABCLIA [id number] [place] [id number] [place] Order Comment: Speci men Type: ARTERIAL BLOOD SPECIMENOrdering Facility: [facility] Address: [address] [place] [address] Performed By: #### A LLBG ####[facility] LABCLIA [id number] [place] [address] [place] Body temperature 99.32 [degF] Normal [facility] Comment on above: Order Comment: Speci men Type: VENOUS BLOOD SPECIMENOrdering Facility: [facility] Address: [address] [place], [place] [address] Performed By: #### 2 4344-4 ####[facility] LABCLIA [id number] [place] [address] [place] Order Comment: Speci men Type: ARTERIAL BLOOD SPECIMENOrdering Facility: [facility] Address: [address] [place], [place] [address] Performed By: #### A LLBG ####[facility] LABCLIA [id number] [place] [id number] [place] Calcium.ionized (Bld) [Mass/Vol] 1.17 mmol/L Normal 1.08-1.30 [facility] Comment on above: Order Comment: Speci men Type: VENOUS BLOOD SPECIMENOrdering Facility: [facility] Address: [address] [place], [place] [address] Performed By: #### 2 4344-4 ####[facility] LABCLIA [id number] [place] [id number] [place] Order Comment: Speci men Type: ARTERIAL BLOOD SPECIMENOrdering Facility: [facility] Address: [address] [place] [address] Performed By: #### A LLBG ####[facility] LABCLIA [id number] [place] [address] [place] FIO2 30 % Normal [facility] Comment on above: Order Comment: Speci men Type: VENOUS BLOOD SPECIMENOrdering Facility: [facility] Address: [address] [place], [place] [address] Performed By: #### 2 4344-4 ####[facility] LABCLIA [id number] [place] [address] [place] Order Comment: Speci men Type: ARTERIAL BLOOD SPECIMENOrdering Facility: [facility] Address: [address] [place] [address] Performed By: #### A LLBG ####[facility] LABCLIA [id number] [place] [address] [place] O2 THERAPY VENT=Ventilator Normal [facility] Comment on above: Order Comment: Speci men Type: VENOUS BLOOD SPECIMENOrdering Facility: [facility] Address: [address] [place], [place] [address] Performed By: #### 2 4344-4 ####[facility] LABCLIA [id number] [place] [id number] [place] Order Comment: Speci men Type: ARTERIAL BLOOD SPECIMENOrdering Facility: [facility] Address: [address] [place] [address] Performed By: #### A LLBG ####[facility] LABCLIA [id number] [place] [id number] [place] PEEP/CPAP 8 cmH2O Normal [facility] Comment on above: Order Comment: Speci men Type: VENOUS BLOOD SPECIMENOrdering Facility: [facility] Address: [address] [place] [address] Performed By: #### 2 4344-4 ####[facility] LABCLIA [id number] [place] [address] [place] Order Comment: Speci men Type: ARTERIAL BLOOD SPECIMENOrdering Facility: [facility] Address: [address] [place] [address] Performed By: #### A LLBG ####[facility] LABCLIA [id number] [place] [address] [place] SET VENTILATOR RESPIRATORY RATE (BPM) 24 BPM Normal [facility] Comment on above: Order Comment: Speci men Type: VENOUS BLOOD SPECIMENOrdering Facility: [facility] Address: [address] [place] [address] Performed By: #### 2 4344-4 ####[facility] LABCLIA [id number] [place] [address] [place] Order Comment: Speci men Type: ARTERIAL BLOOD SPECIMENOrdering Facility: [facility] Address: [address] [place] [address] Performed By: #### A LLBG ####[facility] LABCLIA [id number] [place] [address] [place] Gas and Carbon monoxide pane l (BldV)on 01-24-2024 Base excess Calc (BldV) [Moles/Vol] 2 mmol/L Normal 0-2 [facility] Comment on above: Order Comment: Speci men Type: VENOUS BLOOD SPECIMENOrdering Facility: [facility] Address: [address] [place] [address] Performed By: #### 2 4344-4 ####[facility] LABCLIA [id number] [place] [address] [place] Calcium.ionized (Bld) [Mass/Vol] 1.23 mmol/L Normal 1.08-1.30 [facility] Comment on above: Order Comment: Speci men Type: VENOUS BLOOD SPECIMENOrdering Facility: [facility] Address: [address] [place] [address] Performed By: #### 2 4344-4 ####[facility] LABIA [id number] [place] [address] [place] Calcium.ionized adjusted to pH 7.4 (BldA) [Moles/Vol] 1.21 mmol/L Normal 1.08-1.30 [facility] Comment on above: Order Comment: Speci men Type: VENOUS BLOOD SPECIMENOrdering Facility: [facility] Address: [address] [place] [address] Performed By: #### 2 4344-4 ####[facility] LABIA [id number] [place] [address] [place] Carboxyhemoglobin (BldV) [Mass fraction] 1.5 % Normal 0.0-2.0 [facility] Comment on above: Order Comment: Speci men Type: VENOUS BLOOD SPECIMENOrdering Facility: [facility] Address: [address] [place] [address] Result Comment: Carb oxyhemoglobin Reference Range for Smokers: 2.0-8.0% Performed By: #### 2 4344-4 ####[facility] [id number] [place] [address] [place] CO2 (BldV) [Partial pressure] 48 mm[Hg] Normal 42-55 [facility] Comment on above: Order Comment: Speci men Type: VENOUS BLOOD SPECIMENOrdering Facility: [facility] Address: [address] [place] [address] Performed By: #### 2 4344-4 ####[facility] LABIA [id number] [place] [address] [place] Glucose [Mass/Vol] 131 mg/dL High 60-105 [facility] Comment on above: Order Comment: Speci men Type: VENOUS BLOOD SPECIMENOrdering Facility: [facility] Address: [address] [place] [address] Performed By: #### 2 4344-4 ####[facility] LABCLIA [id number] [place] [address] [place] HCO3 (Bld) [Moles/Vol] 27 mmol/L Normal 24-28 [facility] Comment on above: Order Comment: Speci men Type: VENOUS BLOOD SPECIMENOrdering Facility: [facility] Address: [address] [place] [address] Performed By: #### 2 4344-4 ####[facility] LABCLIA [id number] [place] [address] [place] Lactate [Moles/Vol] 1.4 mmol/L Normal 0.5-2.2 [facility] Comment on above: Order Comment: Speci men Type: VENOUS BLOOD SPECIMENOrdering Facility: [facility] Address: [address] [place] [address] Performed By: #### 2 4344-4 ####[facility] LABCLIA [id number] [place] [address] [place] Methemoglobin (Bld) [Mass fraction] 0.9 % Normal 0.0-1.5 [facility] Comment on above: Order Comment: Speci men Type: VENOUS BLOOD SPECIMENOrdering Facility: [facility] Address: [address] [place] [address] Performed By: #### 2 4344-4 ####[facility] LABCLIA [id number] [place] [address] [place] Oxygen (BldV) [Partial pressure] 44 mm[Hg] Normal 35-45 [facility] Comment on above: Order Comment: Speci men Type: VENOUS BLOOD SPECIMENOrdering Facility: [facility] Address: [address] [place] [address] Performed By: #### 2 4344-4 ####[facility] LABCLIA [id number] [place] [id number] [place] Oxygen saturation in Venous blood 77 % Normal 60-85 [facility] Comment on above: Order Comment: Speci men Type: VENOUS BLOOD SPECIMENOrdering Facility: [facility] Address: [address] [place], [place] [address] Performed By: #### 2 4344-4 ####[facility] LABCLIA [id number] [place] [address] [place] Oxyhemoglobin (BldV) [Mass fraction] 75 % Normal 60-85 [facility] Comment on above: Order Comment: Speci men Type: VENOUS BLOOD SPECIMENOrdering Facility: [facility] Address: [address] [place] [address] Performed By: #### 2 4344-4 ####[facility] LABIA [id number] [place] [address] [place] pH (BldV) 7.37 [pH] Normal 7.32-7.42 [facility] Comment on above: Order Comment: Speci men Type: VENOUS BLOOD SPECIMENOrdering Facility: [facility] Address: [address] [place] [address] Performed By: #### 2 4344-4 ####[facility] LABIA [id number] [place] [address] [place] Potassium [Moles/Vol] 4.2 mmol/L Normal 3.5-5.0 [facility] Comment on above: Order Comment: Speci men Type: VENOUS BLOOD SPECIMENOrdering Facility: [facility] Address: [address] [place], [place] [address] Performed By: #### 2 4344-4 ####[facility] LABCLIA [id number] [place] [address] [place] Base excess Calc (BldV) [Moles/Vol] 3 mmol/L High 0-2 [facility] Comment on above: Order Comment: Speci men Type: VENOUS BLOOD SPECIMENOrdering Facility: [facility] Address: [address] [place] [address] Performed By: #### 2 4344-4 ####[facility] LABCLIA [id number] [place] [address] [place] Calcium.ionized (Bld) [Mass/Vol] 1.17 mmol/L Normal 1.08-1.30 [facility] Comment on above: Order Comment: Speci men Type: VENOUS BLOOD SPECIMENOrdering Facility: [facility] Address: [address] [place] [address] Performed By: #### 2 4344-4 ####[facility] LABIA [id number] [place] [address] [place] Calcium.ionized adjusted to pH 7.4 (BldA) [Moles/Vol] 1.19 mmol/L Normal 1.08-1.30 [facility] Comment on above: Order Comment: Speci men Type: VENOUS BLOOD SPECIMENOrdering Facility: [facility] Address: [address] [place] [address] Performed By: #### 2 4344-4 ####[facility] LABIA [id number] [place] [address] [place] Carboxyhemoglobin (BldV) [Mass fraction] 0.8 % Normal 0.0-2.0 [facility] Comment on above: Order Comment: Speci men Type: VENOUS BLOOD SPECIMENOrdering Facility: [facility] Address: [address] [place] [address] Result Comment: Carb oxyhemoglobin Reference Range for Smokers: 2.0-8.0% Performed By: #### 2 4344-4 ####[facility] LABIA [id number] [place] [address] [place] CO2 (BldV) [Partial pressure] 42 mm[Hg] Normal 42-55 [facility] Comment on above: Order Comment: Speci men Type: VENOUS BLOOD SPECIMENOrdering Facility: [facility] Address: [address] [place] [address] Performed By: #### 2 4344-4 ####[facility] LABIA [id number] [place] [address] [place] CO2 adjusted to patient's actual temperature (BldV) [Partial pressure] 41 mmHg Low 42-55 [facility] Comment on above: Order Comment: Speci men Type: VENOUS BLOOD SPECIMENOrdering Facility: [facility] Address: [address] [place] [address] Performed By: #### 2 4344-4 ####[facility] LABIA [id number] [place] [address] [place] Hemoglobin (Bld) [Mass/Vol] 10.6 g/dL Low 13.0-17.0 [facility] Comment on above: Order Comment: Speci men Type: VENOUS BLOOD SPECIMENOrdering Facility: [facility] Address: [address] [place] [address] Performed By: #### 2 4344-4 ####[facility] LABIA [id number] [place] [address] [place] Lactate [Moles/Vol] 2.0 mmol/L Normal 0.5-2.2 [facility] Comment on above: Order Comment: Speci men Type: VENOUS BLOOD SPECIMENOrdering Facility: [facility] Address: [address] [place] [address] Performed By: #### 2 4344-4 ####[facility] LABIA [id number] [place] [address] [place] Methemoglobin (Bld) [Mass fraction] 1.4 % Normal 0.0-1.5 [facility] Comment on above: Order Comment: Speci men Type: VENOUS BLOOD SPECIMENOrdering Facility: [facility] Address: [address] [place] [address] Performed By: #### 2 4344-4 ####[facility] LABCLIA [id number] [address] [address] [place] Oxygen (BldV) [Partial pressure] 46 mm[Hg] High 35-45 [facility] Comment on above: Order Comment: Speci men Type: VENOUS BLOOD SPECIMENOrdering Facility: [facility] Address: [address] [place], [place] [address] Performed By: #### 2 4344-4 ####[facility] LABCLIA [id number] [address] [address] [place] Oxygen adjusted to patient's actual temperature (BldV) [Partial pressure] 45 mmHg Normal 35-45 [facility] Comment on above: Order Comment: Speci men Type: VENOUS BLOOD SPECIMENOrdering Facility: [facility] Address: [address] [place], [place] [address] Performed By: #### 2 4344-4 ####[facility] LABCLIA [id number] [address] [address] [place] Oxygen saturation in Venous blood 82 % Normal 60-85 [facility] Comment on above: Order Comment: Speci men Type: VENOUS BLOOD SPECIMENOrdering Facility: [facility] Address: [address] [place], [place] [address] Performed By: #### 2 4344-4 ####[facility] LABCLIA [id number] [address] [address] [place] Oxyhemoglobin (BldV) [Mass fraction] 80 % Normal 60-85 [facility] Comment on above: Order Comment: Speci men Type: VENOUS BLOOD SPECIMENOrdering Facility: [facility] Address: [address] [place] [address] Performed By: #### 2 4344-4 ####[facility] LABCLIA [id number] [address] [address] [place] pH (BldV) 7.43 [pH] High 7.32-7.42 [facility] Comment on above: Order Comment: Speci men Type: VENOUS BLOOD SPECIMENOrdering Facility: [facility] Address: [address] [place] [address] Performed By: #### 2 4344-4 ####[facility] LABCLIA [id number] [place] [address] [place] pH adjusted to patient's actual temperature (BldV) 7.43 High 7.32-7.42 [facility] Comment on above: Order Comment: Speci men Type: VENOUS BLOOD SPECIMENOrdering Facility: [facility] Address: [address] [place] [address] Performed By: #### 2 4344-4 ####[facility] LABCLIA [id number] [place] [address] [place] Potassium [Moles/Vol] 4.0 mmol/L Normal 3.5-5.0 [facility] Comment on above: Order Comment: Speci men Type: VENOUS BLOOD SPECIMENOrdering Facility: [facility] Address: [address] [place] [address] Performed By: #### 2 4344-4 ####[facility] LABCLIA [id number] [place] [address] [place] Sodium [Moles/Vol] 136 mmol/L Normal 136-144 [facility] Comment on above: Order Comment: Speci men Type: VENOUS BLOOD SPECIMENOrdering Facility: [facility] Address: [address] [place] [address] Performed By: #### 2 4344-4 ####[facility] LABCLIA [id number] [place] [address] [place] Base excess Calc (BldV) [Moles/Vol] 3 mmol/L High 0-2 [facility] Comment on above: Order Comment: Speci men Type: VENOUS BLOOD SPECIMENOrdering Facility: [facility] Address: [address] [place] [address] Performed By: #### 2 4344-4 ####[facility] LABIA [id number] [place] [address] [place] Calcium.ionized (Bld) [Mass/Vol] 1.20 mmol/L Normal 1.08-1.30 [facility] Comment on above: Order Comment: Speci men Type: VENOUS BLOOD SPECIMENOrdering Facility: [facility] Address: [address] [place] [address] Performed By: #### 2 4344-4 ####[facility] LABIA [id number] [place] [address] [place] Calcium.ionized adjusted to pH 7.4 (BldA) [Moles/Vol] 1.22 mmol/L Normal 1.08-1.30 [facility] Comment on above: Order Comment: Speci men Type: VENOUS BLOOD SPECIMENOrdering Facility: [facility] Address: [address] [place] [address] Performed By: #### 2 4344-4 ####[facility] [id number] [place] [address] [place] Carboxyhemoglobin (BldV) [Mass fraction] 1.3 % Normal 0.0-2.0 [facility] Comment on above: Order Comment: Speci men Type: VENOUS BLOOD SPECIMENOrdering Facility: [facility] Address: [address] [place] [address] Result Comment: Carb oxyhemoglobin Reference Range for Smokers: 2.0-8.0% Performed By: #### 2 4344-4 ####[facility] [id number] [place] [address] [place] CO2 (BldV) [Partial pressure] 40 mm[Hg] Low 42-55 [facility] Comment on above: Order Comment: Speci men Type: VENOUS BLOOD SPECIMENOrdering Facility: [facility] Address: [address] [place] [address] Performed By: #### 2 4344-4 ####[facility] LABCLIA [id number] [place] [address] [place] CO2 adjusted to patient's actual temperature (BldV) [Partial pressure] 40 mmHg Low 42-55 [facility] Comment on above: Order Comment: Speci men Type: VENOUS BLOOD SPECIMENOrdering Facility: [facility] Address: [address] [place] [address] Performed By: #### 2 4344-4 ####[facility] LABCLIA [id number] [place] [address] [place] Glucose [Mass/Vol] 123 mg/dL High 60-105 [facility] Comment on above: Order Comment: Speci men Type: VENOUS BLOOD SPECIMENOrdering Facility: [facility] Address: [address] [place] [address] Performed By: #### 2 4344-4 ####[facility] LABCLIA [id number] [place] [address] [place] HCO3 (Bld) [Moles/Vol] 27 mmol/L Normal 24-28 [facility] Comment on above: Order Comment: Speci men Type: VENOUS BLOOD SPECIMENOrdering Facility: [facility] Address: [address] [place] [address] Performed By: #### 2 4344-4 ####[facility] LABCLIA [id number] [place] [address] [place] Hematocrit (Bld) [Volume fraction] 31.9 % Low 39.0-51.0 [facility] Comment on above: Order Comment: Speci men Type: VENOUS BLOOD SPECIMENOrdering Facility: [facility] Address: [address] [place] [address] Performed By: #### 2 4344-4 ####[facility] LABCLIA [id number] [place] [address] [place] Hemoglobin (Bld) [Mass/Vol] 10.3 g/dL Low 13.0-17.0 [facility] Comment on above: Order Comment: Speci men Type: VENOUS BLOOD SPECIMENOrdering Facility: [facility] Address: [address] [place] [address] Performed By: #### 2 4344-4 ####[facility] LABCLIA [id number] [address] [address] [place] Methemoglobin (Bld) [Mass fraction] 0.7 % Normal 0.0-1.5 [facility] Comment on above: Order Comment: Speci men Type: VENOUS BLOOD SPECIMENOrdering Facility: [facility] Address: [address] [place] [address] Performed By: #### 2 4344-4 ####[facility] LABCLIA [id number] [place] [address] [place] Oxygen (BldV) [Partial pressure] 42 mm[Hg] Normal 35-45 [facility] Comment on above: Order Comment: Speci men Type: VENOUS BLOOD SPECIMENOrdering Facility: [facility] Address: [address] [place] [address] Performed By: #### 2 4344-4 ####[facility] LABCLIA [id number] [place] [address] [place] Oxygen adjusted to patient's actual temperature (BldV) [Partial pressure] 41 mmHg Normal 35-45 [facility] Comment on above: Order Comment: Speci men Type: VENOUS BLOOD SPECIMENOrdering Facility: [facility] Address: [address] [place] [address] Performed By: #### 2 4344-4 ####[facility] LABCLIA [id number] [place] [id number] [place] Oxygen saturation in Venous blood 78 % Normal 60-85 [facility] Comment on above: Order Comment: Speci men Type: VENOUS BLOOD SPECIMENOrdering Facility: [facility] Address: [address] [place] [address] Performed By: #### 2 4344-4 ####[facility] LABCLIA [id number] [place] [address] [place] Oxyhemoglobin (BldV) [Mass fraction] 77 % Normal 60-85 [facility] Comment on above: Order Comment: Speci men Type: VENOUS BLOOD SPECIMENOrdering Facility: [facility] Address: [address] [place] [address] Performed By: #### 2 4344-4 ####[facility] LABIA [id number] [place] [address] [place] pH (BldV) 7.43 [pH] High 7.32-7.42 [facility] Comment on above: Order Comment: Speci men Type: VENOUS BLOOD SPECIMENOrdering Facility: [facility] Address: [address] [place] [address] Performed By: #### 2 4344-4 ####[facility] LABIA [id number] [place] [address] [place] pH adjusted to patient's actual temperature (BldV) 7.44 High 7.32-7.42 [facility] Comment on above: Order Comment: Speci men Type: VENOUS BLOOD SPECIMENOrdering Facility: [facility] Address: [address] [place] [address] Performed By: #### 2 4344-4 ####[facility] LABIA [id number] [place] [address] [place] Base excess Calc (BldV) [Moles/Vol] 1 mmol/L Normal 0-2 [facility] Comment on above: Order Comment: Speci men Type: VENOUS BLOOD SPECIMENOrdering Facility: [facility] Address: [address] [place] [address] Performed By: #### 2 4344-4 ####[facility] LABIA [id number] [place] [address] [place] Calcium.ionized (Bld) [Mass/Vol] 1.20 mmol/L Normal 1.08-1.30 [facility] Comment on above: Order Comment: Speci men Type: VENOUS BLOOD SPECIMENOrdering Facility: [facility] Address: [address] [place] [address] Performed By: #### 2 4344-4 ####[facility] LABCLIA [id number] [place] [address] [place] Calcium.ionized adjusted to pH 7.4 (BldA) [Moles/Vol] 1.21 mmol/L Normal 1.08-1.30 [facility] Comment on above: Order Comment: Speci men Type: VENOUS BLOOD SPECIMENOrdering Facility: [facility] Address: [address] [place] [address] Performed By: #### 2 4344-4 ####[facility] LABIA [id number] [place] [address] [place] Carboxyhemoglobin (BldV) [Mass fraction] 1.4 % Normal 0.0-2.0 [facility] Comment on above: Order Comment: Speci men Type: VENOUS BLOOD SPECIMENOrdering Facility: [facility] Address: [address] [place] [address] Result Comment: Carb oxyhemoglobin Reference Range for Smokers: 2.0-8.0% Performed By: #### 2 4344-4 ####[facility] LABIA [id number] [place] [address] [place] CO2 (BldV) [Partial pressure] 41 mm[Hg] Low 42-55 [facility] Comment on above: Order Comment: Speci men Type: VENOUS BLOOD SPECIMENOrdering Facility: [facility] Address: [address] [place] [address] Performed By: #### 2 4344-4 ####[facility] LABCLIA [id number] [place] [address] [place] Glucose [Mass/Vol] 124 mg/dL High 60-105 [facility] Comment on above: Order Comment: Speci men Type: VENOUS BLOOD SPECIMENOrdering Facility: [facility] Address: [address] [place] [address] Performed By: #### 2 4344-4 ####[facility] LABCLIA [id number] [place] [address] [place] HCO3 (Bld) [Moles/Vol] 25 mmol/L Normal 24-28 [facility] Comment on above: Order Comment: Speci men Type: VENOUS BLOOD SPECIMENOrdering Facility: [facility] Address: [address] [place] [address] Performed By: #### 2 4344-4 ####[facility] LABIA [id number] [place] [address] [place] Hematocrit (Bld) [Volume fraction] 32.9 % Low 39.0-51.0 [facility] Comment on above: Order Comment: Speci men Type: VENOUS BLOOD SPECIMENOrdering Facility: [facility] Address: [address] [place] [address] Performed By: #### 2 4344-4 ####[facility] LABIA [id number] [place] [address] [place] Hemoglobin (Bld) [Mass/Vol] 10.7 g/dL Low 13.0-17.0 [facility] Comment on above: Order Comment: Speci men Type: VENOUS BLOOD SPECIMENOrdering Facility: [facility] Address: [address] [place] [address] Performed By: #### 2 4344-4 ####[facility] LABIA [id number] [place] [address] [place] Lactate [Moles/Vol] 2.8 mmol/L High 0.5-2.2 [facility] Comment on above: Order Comment: Speci men Type: VENOUS BLOOD SPECIMENOrdering Facility: [facility] Address: [address] [id number] Performed By: #### 2 4344-4 ####[facility] LABCLIA [id number] [address] [address] [place] Methemoglobin (Bld) [Mass fraction] 0.8 % Normal 0.0-1.5 [facility] Comment on above: Order Comment: Speci men Type: VENOUS BLOOD SPECIMENOrdering Facility: [facility] Address: [address] [place] [address] Performed By: #### 2 4344-4 ####[facility] LABCLIA [id number] [place] [address] [place] Oxygen (BldV) [Partial pressure] 52 mm[Hg] High 35-45 [facility] Comment on above: Order Comment: Speci men Type: VENOUS BLOOD SPECIMENOrdering Facility: [facility] Address: [address] [place] [address] Performed By: #### 2 4344-4 ####[facility] LABCLIA [id number] [place] [address] [place] Oxygen saturation in Venous blood 87 % High 60-85 [facility] Comment on above: Order Comment: Speci men Type: VENOUS BLOOD SPECIMENOrdering Facility: [facility] Address: [address] [place], [place] [address] Performed By: #### 2 4344-4 ####[facility] LABCLIA [id number] [place] [id number] [place] Oxyhemoglobin (BldV) [Mass fraction] 85 % Normal 60-85 [facility] Comment on above: Order Comment: Speci men Type: VENOUS BLOOD SPECIMENOrdering Facility: [facility] Address: [address] [place] [address] Performed By: #### 2 4344-4 ####[facility] LABCLIA [id number] [address] [address] [place] pH (BldV) 7.41 [pH] Normal 7.32-7.42 [facility] Comment on above: Order Comment: Speci men Type: VENOUS BLOOD SPECIMENOrdering Facility: [facility] Address: [address] [place] [address] Performed By: #### 2 4344-4 ####[facility] LABCLIA [id number] [place] [address] [place] Potassium [Moles/Vol] 3.9 mmol/L Normal 3.5-5.0 [facility] Comment on above: Order Comment: Speci men Type: VENOUS BLOOD SPECIMENOrdering Facility: [facility] Address: [address] [place] [address] Performed By: #### 2 4344-4 ####[facility] LABCLIA [id number] [place] [address] [place] Sodium [Moles/Vol] 139 mmol/L Normal 136-144 [facility] Comment on above: Order Comment: Speci men Type: VENOUS BLOOD SPECIMENOrdering Facility: [facility] Address: [address] [place] [address] Performed By: #### 2 4344-4 ####[facility] LABCLIA [id number] [place] [address] [place] Base excess Calc (BldV) [Moles/Vol] 1 mmol/L Normal 0-2 [facility] Comment on above: Order Comment: Speci men Type: VENOUS BLOOD SPECIMENOrdering Facility: [facility] Address: [address] [place] [address] Performed By: #### 2 4344-4 ####[facility] LABCLIA [id number] [place] [address] [place] Calcium.ionized (Bld) [Mass/Vol] 1.18 mmol/L Normal 1.08-1.30 [facility] Comment on above: Order Comment: Speci men Type: VENOUS BLOOD SPECIMENOrdering Facility: [facility] Address: [address] [place] [address] Performed By: #### 2 4344-4 ####[facility] LABIA [id number] [place] [address] [place] Calcium.ionized adjusted to pH 7.4 (BldA) [Moles/Vol] 1.19 mmol/L Normal 1.08-1.30 [facility] Comment on above: Order Comment: Speci men Type: VENOUS BLOOD SPECIMENOrdering Facility: [facility] Address: [address] [place] [address] Performed By: #### 2 4344-4 ####[facility] LABIA [id number] [place] [address] [place] Carboxyhemoglobin (BldV) [Mass fraction] 1.0 % Normal 0.0-2.0 [facility] Comment on above: Order Comment: Speci men Type: VENOUS BLOOD SPECIMENOrdering Facility: [facility] Address: [address] [place] [address] Result Comment: Carb oxyhemoglobin Reference Range for Smokers: 2.0-8.0% Performed By: #### 2 4344-4 ####[facility] LABIA [id number] [place] [address] [place] CO2 (BldV) [Partial pressure] 40 mm[Hg] Low 42-55 [facility] Comment on above: Order Comment: Speci men Type: VENOUS BLOOD SPECIMENOrdering Facility: [facility] Address: [address] [place] [address] Performed By: #### 2 4344-4 ####[facility] LABIA [id number] [place] [address] [place] Glucose [Mass/Vol] 147 mg/dL High 60-105 [facility] Comment on above: Order Comment: Speci men Type: VENOUS BLOOD SPECIMENOrdering Facility: [facility] Address: [address] [place] [address] Performed By: #### 2 4344-4 ####[facility] LABCLIA [id number] [place] [address] [place] HCO3 (Bld) [Moles/Vol] 25 mmol/L Normal 24-28 [facility] Comment on above: Order Comment: Speci men Type: VENOUS BLOOD SPECIMENOrdering Facility: [facility] Address: [address] [place] [address] Performed By: #### 2 4344-4 ####[facility] LABCLIA [id number] [place] [address] [place] Hematocrit (Bld) [Volume fraction] 32.8 % Low 39.0-51.0 [facility] Comment on above: Order Comment: Speci men Type: VENOUS BLOOD SPECIMENOrdering Facility: [facility] Address: [address] [place] [address] Performed By: #### 2 4344-4 ####[facility] LABIA [id number] [place] [address] [place] Hemoglobin (Bld) [Mass/Vol] 10.6 g/dL Low 13.0-17.0 [facility] Comment on above: Order Comment: Speci men Type: VENOUS BLOOD SPECIMENOrdering Facility: [facility] Address: [address] [place] [address] Performed By: #### 2 4344-4 ####[facility] LABIA [id number] [place] [address] [place] Lactate [Moles/Vol] 4.1 mmol/L High 0.5-2.2 [facility] Comment on above: Order Comment: Speci men Type: VENOUS BLOOD SPECIMENOrdering Facility: [facility] Address: [address] [place] [address] Performed By: #### 2 4344-4 ####[facility] LABIA [id number] [place] [address] [place] Methemoglobin (Bld) [Mass fraction] 0.7 % Normal 0.0-1.5 [facility] Comment on above: Order Comment: Speci men Type: VENOUS BLOOD SPECIMENOrdering Facility: [facility] Address: [address] [place] [address] Performed By: #### 2 4344-4 ####[facility] LABCLIA [id number] [place] [address] [place] Oxygen (BldV) [Partial pressure] 46 mm[Hg] High 35-45 [facility] Comment on above: Order Comment: Speci men Type: VENOUS BLOOD SPECIMENOrdering Facility: [facility] Address: [address] [place] [address] Performed By: #### 2 4344-4 ####[facility] LABCLIA [id number] [place] [address] [place] Oxygen saturation in Venous blood 81 % Normal 60-85 [facility] Comment on above: Order Comment: Speci men Type: VENOUS BLOOD SPECIMENOrdering Facility: [facility] Address: [address] [place] [address] Performed By: #### 2 4344-4 ####[facility] LABCLIA [id number] [place] [address] [place] Oxyhemoglobin (BldV) [Mass fraction] 80 % Normal 60-85 [facility] Comment on above: Order Comment: Speci men Type: VENOUS BLOOD SPECIMENOrdering Facility: [facility] Address: [address] [place], [place] [address] Performed By: #### 2 4344-4 ####[facility] LABCLIA [id number] [place] [id number] [place] pH (BldV) 7.41 [pH] Normal 7.32-7.42 [facility] Comment on above: Order Comment: Speci men Type: VENOUS BLOOD SPECIMENOrdering Facility: [facility] Address: [address] [place] [address] Performed By: #### 2 4344-4 ####[facility] LABIA [id number] [place] [address] [place] Base excess Calc (BldV) [Moles/Vol] 1 mmol/L Normal 0-2 [facility] Comment on above: Order Comment: Speci men Type: VENOUS BLOOD SPECIMENOrdering Facility: [facility] Address: [address] [place] [address] Performed By: #### 2 4344-4 ####[facility] LABIA [id number] [place] [address] [place] Calcium.ionized adjusted to pH 7.4 (BldA) [Moles/Vol] 1.19 mmol/L Normal 1.08-1.30 [facility] Comment on above: Order Comment: Speci men Type: VENOUS BLOOD SPECIMENOrdering Facility: [facility] Address: [address] [place] [address] Performed By: #### 2 4344-4 ####[facility] LABIA [id number] [place] [address] [place] Carboxyhemoglobin (BldV) [Mass fraction] 1.4 % Normal 0.0-2.0 [facility] Comment on above: Order Comment: Speci men Type: VENOUS BLOOD SPECIMENOrdering Facility: [facility] Address: [address] [place] [address] Result Comment: Carb oxyhemoglobin Reference Range for Smokers: 2.0-8.0% Performed By: #### 2 4344-4 ####[facility] LABIA [id number] [place] [address] [place] CO2 (BldV) [Partial pressure] 39 mm[Hg] Low 42-55 [facility] Comment on above: Order Comment: Speci men Type: VENOUS BLOOD SPECIMENOrdering Facility: [facility] Address: [address] [place] [address] Performed By: #### 2 4344-4 ####[facility] LABCLIA [id number] [place] [address] [place] HCO3 (Bld) [Moles/Vol] 25 mmol/L Normal 24-28 [facility] Comment on above: Order Comment: Speci men Type: VENOUS BLOOD SPECIMENOrdering Facility: [facility] Address: [address] [place] [address] Performed By: #### 2 4344-4 ####[facility] LABCLIA [id number] [place] [address] [place] Hematocrit (Bld) [Volume fraction] 34.1 % Low 39.0-51.0 [facility] Comment on above: Order Comment: Speci men Type: VENOUS BLOOD SPECIMENOrdering Facility: [facility] Address: [address] [place] [address] Performed By: #### 2 4344-4 ####[facility] LABIA [id number] [place] [address] [place] Hemoglobin (Bld) [Mass/Vol] 11.1 g/dL Low 13.0-17.0 [facility] Comment on above: Order Comment: Speci men Type: VENOUS BLOOD SPECIMENOrdering Facility: [facility] Address: [address] [place] [address] Performed By: #### 2 4344-4 ####[facility] LABIA [id number] [place] [address] [place] Lactate [Moles/Vol] 5.0 mmol/L High 0.5-2.2 [facility] Comment on above: Order Comment: Speci men Type: VENOUS BLOOD SPECIMENOrdering Facility: [facility] Address: [address] [place] [address] Performed By: #### 2 4344-4 ####[facility] LABIA [id number] [address] [id number] [address] [place] Methemoglobin (Bld) [Mass fraction] 0.9 % Normal 0.0-1.5 [facility] Comment on above: Order Comment: Speci men Type: VENOUS BLOOD SPECIMENOrdering Facility: [facility] Address: [address] [place] [address] Performed By: #### 2 4344-4 ####[facility] LABCLIA [id number] [place] [address] [place] Oxygen (BldV) [Partial pressure] 44 mm[Hg] Normal 35-45 [facility] Comment on above: Order Comment: Speci men Type: VENOUS BLOOD SPECIMENOrdering Facility: [facility] Address: [address] [place] [address] Performed By: #### 2 4344-4 ####[facility] LABCLIA [id number] [place] [address] [place] Oxygen saturation in Venous blood 79 % Normal 60-85 [facility] Comment on above: Order Comment: Speci men Type: VENOUS BLOOD SPECIMENOrdering Facility: [facility] Address: [address] [place] [address] Performed By: #### 2 4344-4 ####[facility] LABCLIA [id number] [place] [address] [place] Oxyhemoglobin (BldV) [Mass fraction] 77 % Normal 60-85 [facility] Comment on above: Order Comment: Speci men Type: VENOUS BLOOD SPECIMENOrdering Facility: [facility] Address: [address] [place], [place] [address] Performed By: #### 2 4344-4 ####[facility] LABCLIA [id number] [place] [address] [place] pH (BldV) 7.42 [pH] Normal 7.32-7.42 [facility] Comment on above: Order Comment: Speci men Type: VENOUS BLOOD SPECIMENOrdering Facility: [facility] Address: [address] [id number] Performed By: #### 2 4344-4 ####[facility] LABCLIA [id number] [place] [address] [place] Potassium [Moles/Vol] 3.7 mmol/L Normal 3.5-5.0 [facility] Comment on above: Order Comment: Speci men Type: VENOUS BLOOD SPECIMENOrdering Facility: [facility] Address: [address] [place] [address] Performed By: #### 2 4344-4 ####[facility] LABCLIA [id number] [place] [address] [place] Sodium [Moles/Vol] 139 mmol/L Normal 136-144 [facility] Comment on above: Order Comment: Speci men Type: VENOUS BLOOD SPECIMENOrdering Facility: [facility] Address: [address] [place] [address] Performed By: #### 2 4344-4 ####[facility] LABIA [id number] [place] [address] [place] BASE DEFICIT, VENOUS -1 mmol/L Normal -2-0 [facility] Comment on above: Order Comment: Speci men Type: VENOUS BLOOD SPECIMENOrdering Facility: [facility] Address: [address] [place], [place] [address] Performed By: #### 2 4344-4 ####[facility] LABCLIA [id number] [place] [address] [place] Calcium.ionized (Bld) [Mass/Vol] 1.19 mmol/L Normal 1.08-1.30 [facility] Comment on above: Order Comment: Speci men Type: VENOUS BLOOD SPECIMENOrdering Facility: [facility] Address: [address] [place], [place] [address] Performed By: #### 2 4344-4 ####[facility] LABCLIA [id number] [place] [address] [place] Calcium.ionized adjusted to pH 7.4 (BldA) [Moles/Vol] 1.18 mmol/L Normal 1.08-1.30 [facility] Comment on above: Order Comment: Speci men Type: VENOUS BLOOD SPECIMENOrdering Facility: [facility] Address: [address] [place] [address] Performed By: #### 2 4344-4 ####[facility] LABIA [id number] [place] [address] [place] Carboxyhemoglobin (BldV) [Mass fraction] 0.9 % Normal 0.0-2.0 [facility] Comment on above: Order Comment: Speci men Type: VENOUS BLOOD SPECIMENOrdering Facility: [facility] Address: [address] [place] [address] Result Comment: Carb oxyhemoglobin Reference Range for Smokers: 2.0-8.0% Performed By: #### 2 4344-4 ####[facility] LABIA [id number] [place] [address] [place] CO2 (BldV) [Partial pressure] 41 mm[Hg] Low 42-55 [facility] Comment on above: Order Comment: Speci men Type: VENOUS BLOOD SPECIMENOrdering Facility: [facility] Address: [address] [place] [address] Performed By: #### 2 4344-4 ####[facility] LABCLIA [id number] [place] [address] [place] Hematocrit (Bld) [Volume fraction] 35.5 % Low 39.0-51.0 [facility] Comment on above: Order Comment: Speci men Type: VENOUS BLOOD SPECIMENOrdering Facility: [facility] Address: [address] [place] [address] Performed By: #### 2 4344-4 ####[facility] LABIA [id number] [place] [address] [place] Lactate [Moles/Vol] 4.7 mmol/L High 0.5-2.2 [facility] Comment on above: Order Comment: Speci men Type: VENOUS BLOOD SPECIMENOrdering Facility: [facility] Address: [address] [place] [address] Performed By: #### 2 4344-4 ####[facility] LABCLIA [id number] [place] [address] [place] Methemoglobin (Bld) [Mass fraction] 1.6 % High 0.0-1.5 [facility] Comment on above: Order Comment: Speci men Type: VENOUS BLOOD SPECIMENOrdering Facility: [facility] Address: [address] [place] [address] Performed By: #### 2 4344-4 ####[facility] LABCLIA [id number] [place] [address] [place] Oxygen (BldV) [Partial pressure] 45 mm[Hg] Normal 35-45 [facility] Comment on above: Order Comment: Speci men Type: VENOUS BLOOD SPECIMENOrdering Facility: [facility] Address: [address] [place] [address] Performed By: #### 2 4344-4 ####[facility] LABCLIA [id number] [place] [address] [place] Oxygen saturation in Venous blood 78 % Normal 60-85 [facility] Comment on above: Order Comment: Speci men Type: VENOUS BLOOD SPECIMENOrdering Facility: [facility] Address: [address] [place] [address] Performed By: #### 2 4344-4 ####[facility] LABCLIA [id number] [place] [address] [place] Oxyhemoglobin (BldV) [Mass fraction] 76 % Normal 60-85 [facility] Comment on above: Order Comment: Speci men Type: VENOUS BLOOD SPECIMENOrdering Facility: [facility] Address: [address] [place] [address] Performed By: #### 2 4344-4 ####[facility] LABCLIA [id number] [place] [address] [place] pH (BldV) 7.38 [pH] Normal 7.32-7.42 [facility] Comment on above: Order Comment: Speci men Type: VENOUS BLOOD SPECIMENOrdering Facility: [facility] Address: [address] [place] [address] Performed By: #### 2 4344-4 ####[facility] LABCLIA [id number] [place] [address] [place] Sodium [Moles/Vol] 140 mmol/L Normal 136-144 [facility] Comment on above: Order Comment: Speci men Type: VENOUS BLOOD SPECIMENOrdering Facility: [facility] Address: [address] [place] [address] Performed By: #### 2 4344-4 ####[facility] LABIA [id number] [place] [address] [place] BASE DEFICIT, VENOUS -1 mmol/L Normal -2-0 [facility] Comment on above: Order Comment: Speci men Type: VENOUS BLOOD SPECIMENOrdering Facility: [facility] Address: [address] [place] [address] Performed By: #### 2 4344-4 ####[facility] LABCLIA [id number] [place] [address] [place] Calcium.ionized (Bld) [Mass/Vol] 1.18 mmol/L Normal 1.08-1.30 [facility] Comment on above: Order Comment: Speci men Type: VENOUS BLOOD SPECIMENOrdering Facility: [facility] Address: [address] [place] [address] Performed By: #### 2 4344-4 ####[facility] LABCLIA [id number] [place] [address] [place] Calcium.ionized adjusted to pH 7.4 (BldA) [Moles/Vol] 1.15 mmol/L Normal 1.08-1.30 [facility] Comment on above: Order Comment: Speci men Type: VENOUS BLOOD SPECIMENOrdering Facility: [facility] Address: [address] [place] [address] Performed By: #### 2 4344-4 ####[facility] LABCLIA [id number] [address] [place] Carboxyhemoglobin (BldV) [Mass fraction] 1.3 % Normal 0.0-2.0 [facility] Comment on above: Order Comment: Speci men Type: VENOUS BLOOD SPECIMENOrdering Facility: [facility] Address: [address] [place] [address] Result Comment: Carb oxyhemoglobin Reference Range for Smokers: 2.0-8.0% Performed By: #### 2 4344-4 ####[facility] LABIA [id number] [address] [place] CO2 (BldV) [Partial pressure] 46 mm[Hg] Normal 42-55 [facility] Comment on above: Order Comment: Speci men Type: VENOUS BLOOD SPECIMENOrdering Facility: [facility] Address: [address] [place] [address] Performed By: #### 2 4344-4 ####[facility] LABIA [id number] [place] [address] [place] Glucose [Mass/Vol] 166 mg/dL High 60-105 [facility] Comment on above: Order Comment: Speci men Type: VENOUS BLOOD SPECIMENOrdering Facility: [facility] Address: [address] [place] [address] Performed By: #### 2 4344-4 ####[facility] LABCLIA [id number] [place] [address] [place] HCO3 (Bld) [Moles/Vol] 24 mmol/L Normal 24-28 [facility] Comment on above: Order Comment: Speci men Type: VENOUS BLOOD SPECIMENOrdering Facility: [facility] Address: [address] [place] [address] Performed By: #### 2 4344-4 ####[facility] LABIA [id number] [place] [address] [place] Hematocrit (Bld) [Volume fraction] 34.3 % Low 39.0-51.0 [facility] Comment on above: Order Comment: Speci men Type: VENOUS BLOOD SPECIMENOrdering Facility: [facility] Address: [address] [place] [address] Performed By: #### 2 4344-4 ####[facility] LABIA [id number] [place] [address] [place] Hemoglobin (Bld) [Mass/Vol] 11.1 g/dL Low 13.0-17.0 [facility] Comment on above: Order Comment: Speci men Type: VENOUS BLOOD SPECIMENOrdering Facility: [facility] Address: [address] [place] [address] Performed By: #### 2 4344-4 ####[facility] LABIA [id number] [place] [address] [place] Lactate [Moles/Vol] 5.1 mmol/L High 0.5-2.2 [facility] Comment on above: Order Comment: Speci men Type: VENOUS BLOOD SPECIMENOrdering Facility: [facility] Address: [address] [place] [address] Performed By: #### 2 4344-4 ####[facility] LABIA [id number] [place] [address] [place] Oxygen (BldV) [Partial pressure] 45 mm[Hg] Normal 35-45 [facility] Comment on above: Order Comment: Speci men Type: VENOUS BLOOD SPECIMENOrdering Facility: [facility] Address: [address] [place] [address] Performed By: #### 2 4344-4 ####[facility] LABCLIA [id number] [place] [address] [place] Oxygen saturation in Venous blood 78 % Normal 60-85 [facility] Comment on above: Order Comment: Speci men Type: VENOUS BLOOD SPECIMENOrdering Facility: [facility] Address: [address] [place] [address] Performed By: #### 2 4344-4 ####[facility] LABIA [id number] [place] [address] [place] Oxyhemoglobin (BldV) [Mass fraction] 76 % Normal 60-85 [facility] Comment on above: Order Comment: Speci men Type: VENOUS BLOOD SPECIMENOrdering Facility: [facility] Address: [address] [place] [address] Performed By: #### 2 4344-4 ####[facility] LABIA [id number] [place] [address] [place] pH (BldV) 7.34 [pH] Normal 7.32-7.42 [facility] Comment on above: Order Comment: Speci men Type: VENOUS BLOOD SPECIMENOrdering Facility: [facility] Address: [address] [place] [address] Performed By: #### 2 4344-4 ####[facility] LABIA [id number] [place] [address] [place] BASE DEFICIT, VENOUS -2 mmol/L Normal -2-0 [facility] Comment on above: Order Comment: Speci men Type: VENOUS BLOOD SPECIMENOrdering Facility: [facility] Address: [address] [place] [address] Performed By: #### 2 4344-4 ####[facility] LABCLIA [id number] [place] [address] [place] Calcium.ionized (Bld) [Mass/Vol] 1.14 mmol/L Normal 1.08-1.30 [facility] Comment on above: Order Comment: Speci men Type: VENOUS BLOOD SPECIMENOrdering Facility: [facility] Address: [address] [place] [address] Performed By: #### 2 4344-4 ####[facility] LABCLIA [id number] [place] [address] [place] Calcium.ionized adjusted to pH 7.4 (BldA) [Moles/Vol] 1.12 mmol/L Normal 1.08-1.30 [facility] Comment on above: Order Comment: Speci men Type: VENOUS BLOOD SPECIMENOrdering Facility: [facility] Address: [address] [place] [address] Performed By: #### 2 4344-4 ####[facility] LABIA [id number] [place] [address] [place] Carboxyhemoglobin (BldV) [Mass fraction] 1.5 % Normal 0.0-2.0 [facility] Comment on above: Order Comment: Speci men Type: VENOUS BLOOD SPECIMENOrdering Facility: [facility] Address: [address] [place] [address] Result Comment: Carb oxyhemoglobin Reference Range for Smokers: 2.0-8.0% Performed By: #### 2 4344-4 ####[facility] LABIA [id number] [place] [address] [place] CO2 (BldV) [Partial pressure] 39 mm[Hg] Low 42-55 [facility] Comment on above: Order Comment: Speci men Type: VENOUS BLOOD SPECIMENOrdering Facility: [facility] Address: [address] [place] [address] Performed By: #### 2 4344-4 ####[facility] LABCLIA [id number] [place] [address] [place] Glucose [Mass/Vol] 147 mg/dL High 60-105 [facility] Comment on above: Order Comment: Speci men Type: VENOUS BLOOD SPECIMENOrdering Facility: [facility] Address: [address] [place] [address] Performed By: #### 2 4344-4 ####[facility] LABCLIA [id number] [place] [address] [place] HCO3 (Bld) [Moles/Vol] 22 mmol/L Low 24-28 [facility] Comment on above: Order Comment: Speci men Type: VENOUS BLOOD SPECIMENOrdering Facility: [facility] Address: [address] [place] [address] Performed By: #### 2 4344-4 ####[facility] LABIA [id number] [place] [address] [place] Hematocrit (Bld) [Volume fraction] 32.9 % Low 39.0-51.0 [facility] Comment on above: Order Comment: Speci men Type: VENOUS BLOOD SPECIMENOrdering Facility: [facility] Address: [address] [place] [address] Performed By: #### 2 4344-4 ####[facility] LABIA [id number] [place] [address] [place] Hemoglobin (Bld) [Mass/Vol] 10.6 g/dL Low 13.0-17.0 [facility] Comment on above: Order Comment: Speci men Type: VENOUS BLOOD SPECIMENOrdering Facility: [facility] Address: [address] [place] [address] Performed By: #### 2 4344-4 ####[facility] LABIA [id number] [place] [address] [place] Lactate [Moles/Vol] 5.5 mmol/L High 0.5-2.2 [facility] Comment on above: Order Comment: Speci men Type: VENOUS BLOOD SPECIMENOrdering Facility: [facility] Address: [address] [place] [address] Performed By: #### 2 4344-4 ####[facility] LABCLIA [id number] [address] [address] [place] Methemoglobin (Bld) [Mass fraction] 0.8 % Normal 0.0-1.5 [facility] Comment on above: Order Comment: Speci men Type: VENOUS BLOOD SPECIMENOrdering Facility: [facility] Address: [address] [place] [address] Performed By: #### 2 4344-4 ####[facility] LABCLIA [id number] [place] [address] [place] Oxygen (BldV) [Partial pressure] 44 mm[Hg] Normal 35-45 [facility] Comment on above: Order Comment: Speci men Type: VENOUS BLOOD SPECIMENOrdering Facility: [facility] Address: [address] [place] [address] Performed By: #### 2 4344-4 ####[facility] LABIA [id number] [place] [address] [place] Oxygen saturation in Venous blood 79 % Normal 60-85 [facility] Comment on above: Order Comment: Speci men Type: VENOUS BLOOD SPECIMENOrdering Facility: [facility] Address: [address] [place] [address] Performed By: #### 2 4344-4 ####[facility] LABCLIA [id number] [place] [id number] [place] Oxyhemoglobin (BldV) [Mass fraction] 78 % Normal 60-85 [facility] Comment on above: Order Comment: Speci men Type: VENOUS BLOOD SPECIMENOrdering Facility: [facility] Address: [address] [place], [place] [address] Performed By: #### 2 4344-4 ####[facility] LABCLIA [id number] [place] [id number] [place] pH (BldV) 7.37 [pH] Normal 7.32-7.42 [facility] Comment on above: Order Comment: Speci men Type: VENOUS BLOOD SPECIMENOrdering Facility: [facility] Address: [address] [place] [address] Performed By: #### 2 4344-4 ####[facility] LABCLIA [id number] [place] [address] [place] Potassium [Moles/Vol] 4.2 mmol/L Normal 3.5-5.0 [facility] Comment on above: Order Comment: Speci men Type: VENOUS BLOOD SPECIMENOrdering Facility: [facility] Address: [address] [place] [address] Performed By: #### 2 4344-4 ####[facility] LABCLIA [id number] [place] [address] [place] Sodium [Moles/Vol] 137 mmol/L Normal 136-144 [facility] Comment on above: Order Comment: Speci men Type: VENOUS BLOOD SPECIMENOrdering Facility: [facility] Address: [address] [place] [address] Performed By: #### 2 4344-4 ####[facility] LABCLIA [id number] [place] [address] [place] BASE DEFICIT, VENOUS -1 mmol/L Normal -2-0 [facility] Comment on above: Order Comment: Speci men Type: VENOUS BLOOD SPECIMENOrdering Facility: [facility] Address: [address] [place] [address] Performed By: #### 2 4344-4 ####[facility] LABCLIA [id number] [place] [address] [place] Calcium.ionized adjusted to pH 7.4 (BldA) [Moles/Vol] 1.15 mmol/L Normal 1.08-1.30 [facility] Comment on above: Order Comment: Speci men Type: VENOUS BLOOD SPECIMENOrdering Facility: [facility] Address: [address] [place] [address] Performed By: #### 2 4344-4 ####[facility] LABCLIA [id number] [place] [address] [place] Carboxyhemoglobin (BldV) [Mass fraction] 1.3 % Normal 0.0-2.0 [facility] Comment on above: Order Comment: Speci men Type: VENOUS BLOOD SPECIMENOrdering Facility: [facility] Address: [address] [place] [address] Result Comment: Carb oxyhemoglobin Reference Range for Smokers: 2.0-8.0% Performed By: #### 2 4344-4 ####[facility] LABIA [id number] [place] [address] [place] CO2 (BldV) [Partial pressure] 42 mm[Hg] Normal 42-55 [facility] Comment on above: Order Comment: Speci men Type: VENOUS BLOOD SPECIMENOrdering Facility: [facility] Address: [address] [place] [address] Performed By: #### 2 4344-4 ####[facility] LABCLIA [id number] [place] [address] [place] CO2 adjusted to patient's actual temperature (BldV) [Partial pressure] 42 mmHg Normal 42-55 [facility] Comment on above: Order Comment: Speci men Type: VENOUS BLOOD SPECIMENOrdering Facility: [facility] Address: [address] [place] [address] Performed By: #### 2 4344-4 ####[facility] LABIA [id number] [place] [address] [place] Glucose [Mass/Vol] 136 mg/dL High 60-105 [facility] Comment on above: Order Comment: Speci men Type: VENOUS BLOOD SPECIMENOrdering Facility: [facility] Address: [address] [place] [address] Performed By: #### 2 4344-4 ####[facility] LABCLIA [id number] [place] [address] [place] HCO3 (Bld) [Moles/Vol] 24 mmol/L Normal 24-28 [facility] Comment on above: Order Comment: Speci men Type: VENOUS BLOOD SPECIMENOrdering Facility: [facility] Address: [address] [place] [address] Performed By: #### 2 4344-4 ####[facility] LABIA [id number] [place] [address] [place] Hematocrit (Bld) [Volume fraction] 34.5 % Low 39.0-51.0 [facility] Comment on above: Order Comment: Speci men Type: VENOUS BLOOD SPECIMENOrdering Facility: [facility] Address: [address] [place] [address] Performed By: #### 2 4344-4 ####[facility] LABIA [id number] [place] [address] [place] Hemoglobin (Bld) [Mass/Vol] 11.2 g/dL Low 13.0-17.0 [facility] Comment on above: Order Comment: Speci men Type: VENOUS BLOOD SPECIMENOrdering Facility: [facility] Address: [address] [place] [address] Performed By: #### 2 4344-4 ####[facility] LABIA [id number] [place] [address] [place] Lactate [Moles/Vol] 4.9 mmol/L High 0.5-2.2 [facility] Comment on above: Order Comment: Speci men Type: VENOUS BLOOD SPECIMENOrdering Facility: [facility] Address: [address] [place] [address] Performed By: #### 2 4344-4 ####[facility] LABIA [id number] [place] [address] [place] Methemoglobin (Bld) [Mass fraction] 1.3 % Normal 0.0-1.5 [facility] Comment on above: Order Comment: Speci men Type: VENOUS BLOOD SPECIMENOrdering Facility: [facility] Address: [address] [place] [address] Performed By: #### 2 4344-4 ####[facility] LABCLIA [id number] [address] [address] [place] Oxygen (BldV) [Partial pressure] 43 mm[Hg] Normal 35-45 [facility] Comment on above: Order Comment: Speci men Type: VENOUS BLOOD SPECIMENOrdering Facility: [facility] Address: [address] [place], [place] [address] Performed By: #### 2 4344-4 ####[facility] LABCLIA [id number] [address] [address] [place] Oxygen adjusted to patient's actual temperature (BldV) [Partial pressure] 44 mmHg Normal 35-45 [facility] Comment on above: Order Comment: Speci men Type: VENOUS BLOOD SPECIMENOrdering Facility: [facility] Address: [address] [place] [address] Performed By: #### 2 4344-4 ####[facility] LABCLIA [id number] [address] [address] [place] Oxygen saturation in Venous blood 79 % Normal 60-85 [facility] Comment on above: Order Comment: Speci men Type: VENOUS BLOOD SPECIMENOrdering Facility: [facility] Address: [address] [place] [address] Performed By: #### 2 4344-4 ####[facility] LABCLIA [id number] [address] [address] [place] Oxyhemoglobin (BldV) [Mass fraction] 77 % Normal 60-85 [facility] Comment on above: Order Comment: Speci men Type: VENOUS BLOOD SPECIMENOrdering Facility: [facility] Address: [address] [place] [address] Performed By: #### 2 4344-4 ####[facility] LABCLIA [id number] [place] [address] [place] pH (BldV) 7.38 [pH] Normal 7.32-7.42 [facility] Comment on above: Order Comment: Speci men Type: VENOUS BLOOD SPECIMENOrdering Facility: [facility] Address: [address] [place] [address] Performed By: #### 2 4344-4 ####[facility] LABIA [id number] [place] [address] [place] pH adjusted to patient's actual temperature (BldV) 7.37 Normal 7.32-7.42 [facility] Comment on above: Order Comment: Speci men Type: VENOUS BLOOD SPECIMENOrdering Facility: [facility] Address: [address] [place] [address] Performed By: #### 2 4344-4 ####[facility] LABIA [id number] [place] [address] [place] Potassium [Moles/Vol] 4.3 mmol/L Normal 3.5-5.0 [facility] Comment on above: Order Comment: Speci men Type: VENOUS BLOOD SPECIMENOrdering Facility: [facility] Address: [address] [place] [address] Performed By: #### 2 4344-4 ####[facility] LABIA [id number] [place] [address] [place] BASE DEFICIT, VENOUS -1 mmol/L Normal -2-0 [facility] Comment on above: Order Comment: Speci men Type: VENOUS BLOOD SPECIMENOrdering Facility: [facility] Address: [address] [place] [address] Performed By: #### 2 4344-4 ####[facility] LABIA [id number] [place] [address] [place] Calcium.ionized (Bld) [Mass/Vol] 1.18 mmol/L Normal 1.08-1.30 [facility] Comment on above: Order Comment: Speci men Type: VENOUS BLOOD SPECIMENOrdering Facility: [facility] Address: [address] [place] [address] Performed By: #### 2 4344-4 ####[facility] LABCLIA [id number] [place] [address] [place] Calcium.ionized adjusted to pH 7.4 (BldA) [Moles/Vol] 1.16 mmol/L Normal 1.08-1.30 [facility] Comment on above: Order Comment: Speci men Type: VENOUS BLOOD SPECIMENOrdering Facility: [facility] Address: [address] [place] [address] Performed By: #### 2 4344-4 ####[facility] LABIA [id number] [place] [address] [place] Carboxyhemoglobin (BldV) [Mass fraction] 1.2 % Normal 0.0-2.0 [facility] Comment on above: Order Comment: Speci men Type: VENOUS BLOOD SPECIMENOrdering Facility: [facility] Address: [address] [place] [address] Result Comment: Carb oxyhemoglobin Reference Range for Smokers: 2.0-8.0% Performed By: #### 2 4344-4 ####[facility] LABIA [id number] [place] [address] [place] CO2 (BldV) [Partial pressure] 42 mm[Hg] Normal 42-55 [facility] Comment on above: Order Comment: Speci men Type: VENOUS BLOOD SPECIMENOrdering Facility: [facility] Address: [address] [place] [address] Performed By: #### 2 4344-4 ####[facility] LABCLIA [id number] [place] [address] [place] CO2 adjusted to patient's actual temperature (BldV) [Partial pressure] 43 mmHg Normal 42-55 [facility] Comment on above: Order Comment: Speci men Type: VENOUS BLOOD SPECIMENOrdering Facility: [facility] Address: [address] [place] [address] Performed By: #### 2 4344-4 ####[facility] LABCLIA [id number] [place] [address] [place] Glucose [Mass/Vol] 129 mg/dL High 60-105 [facility] Comment on above: Order Comment: Speci men Type: VENOUS BLOOD SPECIMENOrdering Facility: [facility] Address: [address] [place] [address] Performed By: #### 2 4344-4 ####[facility] LABIA [id number] [place] [address] [place] HCO3 (Bld) [Moles/Vol] 24 mmol/L Normal 24-28 [facility] Comment on above: Order Comment: Speci men Type: VENOUS BLOOD SPECIMENOrdering Facility: [facility] Address: [address] [place] [address] Performed By: #### 2 4344-4 ####[facility] LABIA [id number] [place] [address] [place] Hematocrit (Bld) [Volume fraction] 34.8 % Low 39.0-51.0 [facility] Comment on above: Order Comment: Speci men Type: VENOUS BLOOD SPECIMENOrdering Facility: [facility] Address: [address] [place] [address] Performed By: #### 2 4344-4 ####[facility] LABIA [id number] [place] [address] [place] Hemoglobin (Bld) [Mass/Vol] 11.3 g/dL Low 13.0-17.0 [facility] Comment on above: Order Comment: Speci men Type: VENOUS BLOOD SPECIMENOrdering Facility: [facility] Address: [address] [place] [address] Performed By: #### 2 4344-4 ####[facility] LABCLIA [id number] [place] [address] [place] Lactate [Moles/Vol] 4.1 mmol/L High 0.5-2.2 [facility] Comment on above: Order Comment: Speci men Type: VENOUS BLOOD SPECIMENOrdering Facility: [facility] Address: [address] [place] [address] Performed By: #### 2 4344-4 ####[facility] LABCLIA [id number] [place] [address] [place] Methemoglobin (Bld) [Mass fraction] 0.8 % Normal 0.0-1.5 [facility] Comment on above: Order Comment: Speci men Type: VENOUS BLOOD SPECIMENOrdering Facility: [facility] Address: [address] [place] [address] Performed By: #### 2 4344-4 ####[facility] LABIA [id number] [place] [address] [place] Oxygen (BldV) [Partial pressure] 53 mm[Hg] High 35-45 [facility] Comment on above: Order Comment: Speci men Type: VENOUS BLOOD SPECIMENOrdering Facility: [facility] Address: [address] [place], [place] [address] Performed By: #### 2 4344-4 ####[facility] LABCLIA [id number] [place] [address] [place] Oxygen adjusted to patient's actual temperature (BldV) [Partial pressure] 55 mmHg High 35-45 [facility] Comment on above: Order Comment: Speci men Type: VENOUS BLOOD SPECIMENOrdering Facility: [facility] Address: [address] [place], [place] [address] Performed By: #### 2 4344-4 ####[facility] LABCLIA [id number] [address] [address] [place] Oxygen saturation in Venous blood 87 % High 60-85 [facility] Comment on above: Order Comment: Speci men Type: VENOUS BLOOD SPECIMENOrdering Facility: [facility] Address: [address] [place], [place] [address] Performed By: #### 2 4344-4 ####[facility] LABCLIA [id number] [place] [address] [place] Oxyhemoglobin (BldV) [Mass fraction] 85 % Normal 60-85 [facility] Comment on above: Order Comment: Speci men Type: VENOUS BLOOD SPECIMENOrdering Facility: [facility] Address: [address] [place] [address] Performed By: #### 2 4344-4 ####[facility] LABCLIA [id number] [place] [address] [place] pH (BldV) 7.37 [pH] Normal 7.32-7.42 [facility] Comment on above: Order Comment: Speci men Type: VENOUS BLOOD SPECIMENOrdering Facility: [facility] Address: [address] [place] [address] Performed By: #### 2 4344-4 ####[facility] LABCLIA [id number] [place] [address] [place] pH adjusted to patient's actual temperature (BldV) 7.37 Normal 7.32-7.42 [facility] Comment on above: Order Comment: Speci men Type: VENOUS BLOOD SPECIMENOrdering Facility: [facility] Address: [address] [place] [address] Performed By: #### 2 4344-4 ####[facility] LABCLIA [id number] [place] [address] [place] Potassium [Moles/Vol] 4.6 mmol/L Normal 3.5-5.0 [facility] Comment on above: Order Comment: Speci men Type: VENOUS BLOOD SPECIMENOrdering Facility: [facility] Address: [address] [place] [address] Performed By: #### 2 4344-4 ####[facility] LABIA [id number] [place] [address] [place] Base excess Calc (BldV) [Moles/Vol] 0 mmol/L Normal 0-2 [facility] Comment on above: Order Comment: Speci men Type: VENOUS BLOOD SPECIMENOrdering Facility: [facility] Address: [address] [place] [address] Performed By: #### 2 4344-4 ####[facility] [id number] [place] [address] [place] Calcium.ionized (Bld) [Mass/Vol] 1.20 mmol/L Normal 1.08-1.30 [facility] Comment on above: Order Comment: Speci men Type: VENOUS BLOOD SPECIMENOrdering Facility: [facility] Address: [address] [place] [address] Performed By: #### 2 4344-4 ####[facility] [id number] [place] [address] [place] Calcium.ionized adjusted to pH 7.4 (BldA) [Moles/Vol] 1.17 mmol/L Normal 1.08-1.30 [facility] Comment on above: Order Comment: Speci men Type: VENOUS BLOOD SPECIMENOrdering Facility: [facility] Address: [address] [place] [address] Performed By: #### 2 4344-4 ####[facility] [id number] [place] [address] [place] Carboxyhemoglobin (BldV) [Mass fraction] 1.1 % Normal 0.0-2.0 [facility] Comment on above: Order Comment: Speci men Type: VENOUS BLOOD SPECIMENOrdering Facility: [facility] Address: [address], [place] [address] Result Comment: Carb oxyhemoglobin Reference Range for Smokers: 2.0-8.0% Performed By: #### 2 4344-4 ####[facility] LABCLIA [id number] [place] [address] [place] CO2 (BldV) [Partial pressure] 45 mm[Hg] Normal 42-55 [facility] Comment on above: Order Comment: Speci men Type: VENOUS BLOOD SPECIMENOrdering Facility: [facility] Address: [address] [place] [address] Performed By: #### 2 4344-4 ####[facility] LABCLIA [id number] [place] [address] [place] CO2 adjusted to patient's actual temperature (BldV) [Partial pressure] 48 mmHg Normal 42-55 [facility] Comment on above: Order Comment: Speci men Type: VENOUS BLOOD SPECIMENOrdering Facility: [facility] Address: [address] [place] [address] Performed By: #### 2 4344-4 ####[facility] LABIA [id number] [place] [address] [place] Glucose [Mass/Vol] 137 mg/dL High 60-105 [facility] Comment on above: Order Comment: Speci men Type: VENOUS BLOOD SPECIMENOrdering Facility: [facility] Address: [address] [place] [address] Performed By: #### 2 4344-4 ####[facility] LABCLIA [id number] [place] [address] [place] HCO3 (Bld) [Moles/Vol] 25 mmol/L Normal 24-28 [facility] Comment on above: Order Comment: Speci men Type: VENOUS BLOOD SPECIMENOrdering Facility: [facility] Address: [address] [place] [address] Performed By: #### 2 4344-4 ####[facility] LABCLIA [id number] [place] [address] [place] Hematocrit (Bld) [Volume fraction] 36.1 % Low 39.0-51.0 [facility] Comment on above: Order Comment: Speci men Type: VENOUS BLOOD SPECIMENOrdering Facility: [facility] Address: [address] [place] [address] Performed By: #### 2 4344-4 ####[facility] LABCLIA [id number] [place] [address] [place] Hemoglobin (Bld) [Mass/Vol] 11.7 g/dL Low 13.0-17.0 [facility] Comment on above: Order Comment: Speci men Type: VENOUS BLOOD SPECIMENOrdering Facility: [facility] Address: [address] [place] [address] Performed By: #### 2 4344-4 ####[facility] LABCLIA [id number] [place] [address] [place] Methemoglobin (Bld) [Mass fraction] 0.7 % Normal 0.0-1.5 [facility] Comment on above: Order Comment: Speci men Type: VENOUS BLOOD SPECIMENOrdering Facility: [facility] Address: [address] [place] [address] Performed By: #### 2 4344-4 ####[facility] LABCLIA [id number] [place] [address] [place] Oxygen (BldV) [Partial pressure] 49 mm[Hg] High 35-45 [facility] Comment on above: Order Comment: Speci men Type: VENOUS BLOOD SPECIMENOrdering Facility: [facility] Address: [address] [place] [address] Performed By: #### 2 4344-4 ####[facility] LABCLIA [id number] [place] [address] [place] Oxygen adjusted to patient's actual temperature (BldV) [Partial pressure] 54 mmHg High 35-45 [facility] Comment on above: Order Comment: Speci men Type: VENOUS BLOOD SPECIMENOrdering Facility: [facility] Address: [address] [place] [address] Performed By: #### 2 4344-4 ####[facility] LABCLIA [id number] [address] [address] [place] Oxygen saturation in Venous blood 84 % Normal 60-85 [facility] Comment on above: Order Comment: Speci men Type: VENOUS BLOOD SPECIMENOrdering Facility: [facility] Address: [address] [place], [place] [address] Performed By: #### 2 4344-4 ####[facility] LABCLIA [id number] [address] [address] [place] Oxyhemoglobin (BldV) [Mass fraction] 82 % Normal 60-85 [facility] Comment on above: Order Comment: Speci men Type: VENOUS BLOOD SPECIMENOrdering Facility: [facility] Address: [address] [place], [place] [address] Performed By: #### 2 4344-4 ####[facility] LABCLIA [id number] [place] [id number] [place] pH (BldV) 7.36 [pH] Normal 7.32-7.42 [facility] Comment on above: Order Comment: Speci men Type: VENOUS BLOOD SPECIMENOrdering Facility: [facility] Address: [address] [place], [place] [address] Performed By: #### 2 4344-4 ####[facility] LABCLIA [id number] [address] [address] [place] pH adjusted to patient's actual temperature (BldV) 7.34 Normal 7.32-7.42 [facility] Comment on above: Order Comment: Speci men Type: VENOUS BLOOD SPECIMENOrdering Facility: [facility] Address: [address] [place] [address] Performed By: #### 2 4344-4 ####[facility] LABCLIA [id number] [address] [address] [place] Potassium [Moles/Vol] 4.7 mmol/L Normal 3.5-5.0 [facility] Comment on above: Order Comment: Speci men Type: VENOUS BLOOD SPECIMENOrdering Facility: [facility] Address: [address] [place] [address] Performed By: #### 2 4344-4 ####[facility] LABCLIA [id number] [place] [id number] [place] SET VENTILATOR RESPIRATORY RATE (BPM) 34 BPM Normal [facility] Comment on above: Order Comment: Speci men Type: VENOUS BLOOD SPECIMENOrdering Facility: [facility] Address: [address] [place] [address] Performed By: #### 2 4344-4 ####[facility] LABCLIA [id number] [place] [address] [place] Sodium [Moles/Vol] 139 mmol/L Normal 136-144 [facility] Comment on above: Order Comment: Speci men Type: VENOUS BLOOD SPECIMENOrdering Facility: [facility] Address: [address] [place] [address] Performed By: #### 2 4344-4 ####[facility] LABCLIA [id number] [place] [address] [place] HIGH SENSITIVITY TROPONIN To n 01-24-2024 Troponin T.cardiac High sensitivity method [Mass/Vol] 3237 ng/L High <12 [facility] Comment on above: Order Comment: Speci men Type: BLOOD SPECIMENOrdering Facility: [facility] Address: [address] [place] [address] Performed By: #### 2 4323-8, HSTNT ####[facility] LABCLIA [id number] [address] [address] [place] NUTRITIONon 01-24-2024 NUTRITION Normal [facility] TYPE + SCREENon 01-24-2024 ABO O Normal [facility] Comment on above: Order Comment: Speci men Type: BLOOD SPECIMENOrdering Facility: [facility] Address: [address] [place] [address] Performed By: #### T SCR ####[facility] [id number] [place] [address] [place] Rh Nom (Bld) Positive Normal [facility] Comment on above: Order Comment: Speci men Type: BLOOD SPECIMENOrdering Facility: [facility] Address: [address] [place] [address] Performed By: #### T SCR ####[facility] [id number] [place] [address] [place] TYPE AND SCREEN EXPIRATION 01/27/2024 23:59 Normal [facility] Comment on above: Order Comment: Speci men Type: BLOOD SPECIMENOrdering Facility: [facility] Address: [address] [place] [address] Performed By: #### T SCR ####[facility] BLOOD [facility] [id number] [place] [address] [place] URINALYSIS, REFLEX MICROSCOP ICon 01-24-2024 Bacteria LM.HPF (Urine sed) [#/Area] Negative Normal Negative [facility] Comment on above: Order Comment: Speci men Type: URINE SPECIMENOrdering Facility: [facility] Address: [address] [place] [address] Performed By: #### L [id number] ####[facility] LABCLIA [id number] [place] [address] [place] Bilirubin Ql (U) Negative Normal Negative [facility] Comment on above: Order Comment: Speci men Type: URINE SPECIMENOrdering Facility: [facility] Address: [address] [place] [address] Performed By: #### L [id number] ####[facility] LABCLIA [id number] [place] [address] [place] Clarity (Unsp spec) Turbid Abnormal Clear [facility] Comment on above: Order Comment: Speci men Type: URINE SPECIMENOrdering Facility: [facility] Address: [address] [place] [address] Performed By: #### L [id number] ####[facility] LABCLIA [id number] [place] [address] [place] Color (U) Dark Yellow Abnormal Yellow [facility] Comment on above: Order Comment: Speci men Type: URINE SPECIMENOrdering Facility: [facility] Address: [address] [place] [address] Performed By: #### L [id number] ####[facility] LABCLIA [id number] [place] [address] [place] Epithelial cells LM.HPF (Urine sed) [#/Area] None Seen Normal [facility] Comment on above: Order Comment: Speci men Type: URINE SPECIMENOrdering Facility: [facility] Address: [address] [place] [address] Result Comment: Few Performed By: #### L [id number] ####[facility] LABCLIA [id number] [place] [address] [place] Glucose Test strip (U) [Mass/Vol] Negative Normal Negative [facility] Comment on above: Order Comment: Speci men Type: URINE SPECIMENOrdering Facility: [facility] Address: [address] [place] [address] Performed By: #### L [id number] ####[facility] LABCLIA [id number] [place] [address] [place] Granular casts (Urine sed) [#/Area] 1-3 /LPF Abnormal 0 /LPF [facility] Comment on above: Order Comment: Speci men Type: URINE SPECIMENOrdering Facility: [facility] Address: [address] [place] [address] Performed By: #### L [id number] ####[facility] LABCLIA [id number] [place] [address] [place] Hemoglobin Ql (U) Negative Normal Negative [facility] Comment on above: Order Comment: Speci men Type: URINE SPECIMENOrdering Facility: [facility] Address: [address] [place] [address] Performed By: #### L [id number] ####[facility] LABCLIA [id number] [place] [address] [place] Hyaline casts (Urine sed) [#/Area] 4-10 /LPF Abnormal 0 /LPF [facility] Comment on above: Order Comment: Speci men Type: URINE SPECIMENOrdering Facility: [facility] Address: [address] [place] [address] Performed By: #### L [id number] ####[facility] LABCLIA [id number] [place] [address] [place] Ketones Ql (U) Negative Normal Negative [facility] Comment on above: Order Comment: Speci men Type: URINE SPECIMENOrdering Facility: [facility] Address: [address] [place] [address] Performed By: #### L [id number] ####[facility] LABCLIA [id number] [place] [address] [place] Leukocyte esterase Test strip Ql (U) Negative Normal Negative [facility] Comment on above: Order Comment: Speci men Type: URINE SPECIMENOrdering Facility: [facility] Address: [address] [place] [address] Performed By: #### L [id number] ####[facility] LABCLIA [id number] [place] [address] [place] Nitrite Ql (U) Negative Normal Negative [facility] Comment on above: Order Comment: Speci men Type: URINE SPECIMENOrdering Facility: [facility] Address: [address] [place] [address] Performed By: #### L [id number] ####[facility] LABIA [id number] [place] [address] [place] [facility] pH (U) 5.5 [pH] Normal <8.5 [facility] Comment on above: Order Comment: Speci men Type: URINE SPECIMENOrdering Facility: [facility] Address: [address] [place] [address] Performed By: #### L [id number] ####[facility] LABIA [id number] [place] [address] [place] Protein (U) [Mass/Vol] 1+ Abnormal Negative Cl [facility] Comment on above: Order Comment: Speci men Type: URINE SPECIMENOrdering Facility: [facility] Address: [address] [place] [address] Performed By: #### L [id number] ####[facility] LABIA [id number] [place] [address] [place] RBC LM.HPF (Urine sed) [#/Area] 0-2 /HPF Normal 0-2 /HPF [facility] Comment on above: Order Comment: Speci men Type: URINE SPECIMENOrdering Facility: [facility] Address: [address] [place] [address] Performed By: #### L [id number] ####[facility] LABIA [id number] [place] [address] [place] Specific gravity (U) [Rel density] 1.041 High 1.005-1.030 [facility] Comment on above: Order Comment: Speci men Type: URINE SPECIMENOrdering Facility: [facility] Address: [address] [place] [address] Performed By: #### L [id number] ####[facility] LABIA [id number] [address] [id number] [address] [place] Urobilinogen Ql (U) 0.2 EU/dL Normal 0.2-1.0 EU/dL [facility] Comment on above: Order Comment: Speci men Type: URINE SPECIMENOrdering Facility: [facility] Address: [address] [place] [address] Performed By: #### L [id number] ####[facility] LABCLIA [id number] [place] [address] [place] WBC LM.HPF (Urine sed) [#/Area] 0-5 /HPF Normal 0-5 /HPF [facility] Comment on above: Order Comment: Speci men Type: URINE SPECIMENOrdering Facility: [facility] Address: [address] [place] [address] Performed By: #### L [id number] ####[facility] LABIA [id number] [place] [address] [place] XR CHEST 1V FRONTAL PORTon 1 XR CHEST 1V FRONTAL PORT Normal [facility] ANES POSTPROC EVALon 024 ANES POSTPROC EVAL Normal [facility] ANES PRE-OPon 01-23-2024 ANES PRE-OP Normal [facility] ARTERIAL BLOOD GASESon 01-22 Base excess Calc (Bld) [Moles/Vol] 0 mmol/L Normal 0-2 [facility] Comment on above: Order Comment: Speci men Type: ARTERIAL BLOOD SPECIMENOrdering Facility: [facility] Address: [address] [place] [address] Performed By: #### A LLBG ####[facility] LABIA [id number] [place] [address] [place] Calcium.ionized (Bld) [Mass/Vol] 1.20 mmol/L Normal 1.08-1.30 [facility] Comment on above: Order Comment: Speci men Type: ARTERIAL BLOOD SPECIMENOrdering Facility: [facility] Address: [address] [place] [address] Performed By: #### A LLBG ####[facility] LABCLIA [id number] [place] [address] [place] Calcium.ionized adjusted to pH 7.4 (BldA) [Moles/Vol] 1.21 mmol/L Normal 1.08-1.30 [facility] Comment on above: Order Comment: Speci men Type: ARTERIAL BLOOD SPECIMENOrdering Facility: [facility] Address: [address] [place] [address] Performed By: #### A LLBG ####[facility] LABCLIA [id number] [place] [address] [place] Carboxyhemoglobin (BldA) [Mass fraction] 1.6 % Normal 0.0-2.0 [facility] Comment on above: Order Comment: Speci men Type: ARTERIAL BLOOD SPECIMENOrdering Facility: [facility] Address: [address] [place] [address] Result Comment: Carb oxyhemoglobin Reference Range for Smokers: 2.0-8.0% Performed By: #### A LLBG ####[facility] LABCLIA [id number] [place] [address] [place] CO2 (Bld) [Partial pressure] 37 mm Hg Normal 36-46 [facility] Comment on above: Order Comment: Speci men Type: ARTERIAL BLOOD SPECIMENOrdering Facility: [facility] Address: [address] [place] [address] Performed By: #### A LLBG ####[facility] LABCLIA [id number] [place] [address] [place] CO2 adjusted to patient's actual temperature (Bld) [Partial pressure] 41 mmHg Normal 36-46 [facility] Comment on above: Order Comment: Speci men Type: ARTERIAL BLOOD SPECIMENOrdering Facility: [facility] Address: [address] [place] [address] Performed By: #### A LLBG ####[facility] LABCLIA [id number] [place] [address] [place] Glucose [Mass/Vol] 149 mg/dL High 60-105 [facility] Comment on above: Order Comment: Speci men Type: ARTERIAL BLOOD SPECIMENOrdering Facility: [facility] Address: [address] [place] [address] Performed By: #### A LLBG ####[facility] LABCLIA [id number] [place] [address] [place] Hematocrit (Bld) [Volume fraction] 37.0 % Low 39.0-51.0 [facility] Comment on above: Order Comment: Speci men Type: ARTERIAL BLOOD SPECIMENOrdering Facility: [facility] Address: [address] [place] [address] Performed By: #### A LLBG ####[facility] LABCLIA [id number] [place] [address] [place] Hemoglobin (Bld) [Mass/Vol] 12.0 g/dL Low 13.0-17.0 [facility] Comment on above: Order Comment: Speci men Type: ARTERIAL BLOOD SPECIMENOrdering Facility: [facility] Address: [address] [place] [address] Performed By: #### A LLBG ####[facility] LABCLIA [id number] [place] [address] [place] Lactate [Moles/Vol] 5.6 mmol/L High 0.5-2.2 [facility] Comment on above: Order Comment: Speci men Type: ARTERIAL BLOOD SPECIMENOrdering Facility: [facility] Address: [address] [place] [address] Performed By: #### A LLBG ####[facility] LABCLIA [id number] [place] [address] [place] Methemoglobin (Bld) [Mass fraction] 0.8 % Normal 0.0-1.5 [facility] Comment on above: Order Comment: Speci men Type: ARTERIAL BLOOD SPECIMENOrdering Facility: [facility] Address: [address] [place] [id number] Performed By: #### A LLBG ####[facility] LABCLIA [id number] [address] [address] [place] Oxygen (Bld) [Partial pressure] 91 mm Hg Normal 85-95 [facility] Comment on above: Order Comment: Speci men Type: ARTERIAL BLOOD SPECIMENOrdering Facility: [facility] Address: [address] [place] [address] Performed By: #### A LLBG ####[facility] LABCLIA [id number] [place] [address] [place] Oxygen adjusted to patient's actual temperature (Bld) [Partial pressure] 103 mmHg High 85-95 [facility] Comment on above: Order Comment: Speci men Type: ARTERIAL BLOOD SPECIMENOrdering Facility: [facility] Address: [address] [place] [address] Performed By: #### A LLBG ####[facility] LABCLIA [id number] [place] [address] [place] Oxyhemoglobin (BldA) [Mass fraction] 96 % Normal 95-98 [facility] Comment on above: Order Comment: Speci men Type: ARTERIAL BLOOD SPECIMENOrdering Facility: [facility] Address: [address] [place] [address] Performed By: #### A LLBG ####[facility] LABCLIA [id number] [place] [id number] [place] pH (Bld) 7.42 [pH] Normal 7.35-7.45 [facility] Comment on above: Order Comment: Speci men Type: ARTERIAL BLOOD SPECIMENOrdering Facility: [facility] Address: [address] [place], [place] [id number] Performed By: #### A LLBG ####[facility] LABCLIA [id number] [place] [address] [place] pH adjusted to patient's actual temperature (Bld) 7.39 Normal 7.35-7.45 [facility] Comment on above: Order Comment: Speci men Type: ARTERIAL BLOOD SPECIMENOrdering Facility: [facility] Address: [address] [place] [address] Performed By: #### A LLBG ####[facility] LABCLIA [id number] [place] [address] [place] PO2 / FIO2 RATIO 303 mmHg Normal >300 [facility] Comment on above: Order Comment: Speci men Type: ARTERIAL BLOOD SPECIMENOrdering Facility: [facility] Address: [address] [place] [address] Performed By: #### A LLBG ####[facility] LABCLIA [id number] [place] [address] [place] Potassium [Moles/Vol] 4.9 mmol/L Normal 3.5-5.0 [facility] Comment on above: Order Comment: Speci men Type: ARTERIAL BLOOD SPECIMENOrdering Facility: [facility] Address: [address] [place] [address] Performed By: #### A LLBG ####[facility] LABCLIA [id number] [place] [address] [place] Sodium [Moles/Vol] 137 mmol/L Normal 136-144 [facility] Comment on above: Order Comment: Speci men Type: ARTERIAL BLOOD SPECIMENOrdering Facility: [facility] Address: [address] [place] [address] Performed By: #### A LLBG ####[facility] LABCLIA [id number] [place] [id number] [place] Base deficit (BldA) [Moles/Vol] -1 mmol/L Normal -2-0 [facility] Comment on above: Order Comment: Speci men Type: ARTERIAL BLOOD SPECIMENOrdering Facility: [facility] Address: [address] [place] [address] Performed By: #### A LLBG ####[facility] [id number] [place] [address] [place] Calcium.ionized (Bld) [Mass/Vol] 1.22 mmol/L Normal 1.08-1.30 [facility] Comment on above: Order Comment: Speci men Type: ARTERIAL BLOOD SPECIMENOrdering Facility: [facility] Address: [address] [place] [address] Performed By: #### A LLBG ####[facility] [id number] [place] [address] [place] Calcium.ionized adjusted to pH 7.4 (BldA) [Moles/Vol] 1.23 mmol/L Normal 1.08-1.30 [facility] Comment on above: Order Comment: Speci men Type: ARTERIAL BLOOD SPECIMENOrdering Facility: [facility] Address: [address] [place] [address] Performed By: #### A LLBG ####[facility] [id number] [place] [address] [place] Carboxyhemoglobin (BldA) [Mass fraction] 1.1 % Normal 0.0-2.0 [facility] Comment on above: Order Comment: Speci men Type: ARTERIAL BLOOD SPECIMENOrdering Facility: [facility] Address: [address] [place] [address] Result Comment: Carb oxyhemoglobin Reference Range for Smokers: 2.0-8.0% Performed By: #### A LLBG ####[facility] [id number] [place] [address] [place] CO2 (Bld) [Partial pressure] 35 mm Hg Low 36-46 [facility] Comment on above: Order Comment: Speci men Type: ARTERIAL BLOOD SPECIMENOrdering Facility: [facility] Address: [address] [place] [address] Performed By: #### A LLBG ####[facility] LABCLIA [id number] [place] [address] [place] CO2 adjusted to patient's actual temperature (Bld) [Partial pressure] 38 mmHg Normal 36-46 [facility] Comment on above: Order Comment: Speci men Type: ARTERIAL BLOOD SPECIMENOrdering Facility: [facility] Address: [address] [place] [address] Performed By: #### A LLBG ####[facility] LABCLIA [id number] [place] [address] [place] Glucose [Mass/Vol] 146 mg/dL High 60-105 [facility] Comment on above: Order Comment: Speci men Type: ARTERIAL BLOOD SPECIMENOrdering Facility: [facility] Address: [address] [place] [address] Performed By: #### A LLBG ####[facility] LABCLIA [id number] [place] [address] [place] HCO3 (Bld) [Moles/Vol] 22 mmol/L Normal 22-26 [facility] Comment on above: Order Comment: Speci men Type: ARTERIAL BLOOD SPECIMENOrdering Facility: [facility] Address: [address] [place] [address] Performed By: #### A LLBG ####[facility] LABCLIA [id number] [place] [address] [place] Hematocrit (Bld) [Volume fraction] 36.9 % Low 39.0-51.0 [facility] Comment on above: Order Comment: Speci men Type: ARTERIAL BLOOD SPECIMENOrdering Facility: [facility] Address: [address] [place] [address] Performed By: #### A LLBG ####[facility] LABCLIA [id number] [id number] [address] [place] Hemoglobin (Bld) [Mass/Vol] 12.0 g/dL Low 13.0-17.0 [facility] Comment on above: Order Comment: Speci men Type: ARTERIAL BLOOD SPECIMENOrdering Facility: [facility] Address: [address] [place] [address] Performed By: #### A LLBG ####[facility] LABCLIA [id number] [place] [address] [place] Lactate [Moles/Vol] 5.9 mmol/L High 0.5-2.2 [facility] Comment on above: Order Comment: Speci men Type: ARTERIAL BLOOD SPECIMENOrdering Facility: [facility] Address: [address] [place] [address] Performed By: #### A LLBG ####[facility] LABCLIA [id number] [place] [address] [place] Methemoglobin (Bld) [Mass fraction] 0.7 % Normal 0.0-1.5 [facility] Comment on above: Order Comment: Speci men Type: ARTERIAL BLOOD SPECIMENOrdering Facility: [facility] Address: [address] [place] [address] Performed By: #### A LLBG ####[facility] LABCLIA [id number] [place] [address] [place] Oxygen (Bld) [Partial pressure] 123 mm Hg High 85-95 [facility] Comment on above: Order Comment: Speci men Type: ARTERIAL BLOOD SPECIMENOrdering Facility: [facility] Address: [address] [place] [address] Performed By: #### A LLBG ####[facility] LABCLIA [id number] [place] [address] [place] Oxygen adjusted to patient's actual temperature (Bld) [Partial pressure] 132 mmHg High 85-95 [facility] Comment on above: Order Comment: Speci men Type: ARTERIAL BLOOD SPECIMENOrdering Facility: [facility] Address: [address] [place] [address] Performed By: #### A LLBG ####[facility] LABCLIA [id number] [place] [address] [place] Oxyhemoglobin (BldA) [Mass fraction] 97 % Normal 95-98 [facility] Comment on above: Order Comment: Speci men Type: ARTERIAL BLOOD SPECIMENOrdering Facility: [facility] Address: [address] [place] [address] Performed By: #### A LLBG ####[facility] LABIA [id number] [place] [address] [place] pH (Bld) 7.42 [pH] Normal 7.35-7.45 [facility] Comment on above: Order Comment: Speci men Type: ARTERIAL BLOOD SPECIMENOrdering Facility: [facility] Address: [address] [place] [address] Performed By: #### A LLBG ####[facility] LABIA [id number] [place] [address] [place] pH adjusted to patient's actual temperature (Bld) 7.39 Normal 7.35-7.45 [facility] Comment on above: Order Comment: Speci men Type: ARTERIAL BLOOD SPECIMENOrdering Facility: [facility] Address: [address] [place] [address] Performed By: #### A LLBG ####[facility] LABCLIA [id number] [place] [address] [place] PO2 / FIO2 RATIO 410 mmHg Normal >300 [facility] Comment on above: Order Comment: Speci men Type: ARTERIAL BLOOD SPECIMENOrdering Facility: [facility] Address: [address] [place] [address] Performed By: #### A LLBG ####[facility] LABIA [id number] [place] [address] [place] Potassium [Moles/Vol] 4.7 mmol/L Normal 3.5-5.0 [facility] Comment on above: Order Comment: Speci men Type: ARTERIAL BLOOD SPECIMENOrdering Facility: [facility] Address: [address] [place] [address] Performed By: #### A LLBG ####[facility] LABCLIA [id number] [place] [address] [place] SET VENTILATOR RESPIRATORY RATE (BPM) 24 BPM Normal [facility] Comment on above: Order Comment: Speci men Type: ARTERIAL BLOOD SPECIMENOrdering Facility: [facility] Address: [address] [place] [address] Performed By: #### A LLBG ####[facility] LABCLIA [id number] [place] [address] [place] Sodium [Moles/Vol] 138 mmol/L Normal 136-144 [facility] Comment on above: Order Comment: Speci men Type: ARTERIAL BLOOD SPECIMENOrdering Facility: [facility] Address: [address] [place] [address] Performed By: #### A LLBG ####[facility] LABCLIA [id number] [place] [address] [place] Base deficit (BldA) [Moles/Vol] -2 mmol/L Normal -2-0 [facility] Comment on above: Order Comment: Speci men Type: ARTERIAL BLOOD SPECIMENOrdering Facility: [facility] Address: [address] [place] [address] Performed By: #### A LLBG ####[facility] LABCLIA [id number] [place] [address] [place] Calcium.ionized (Bld) [Mass/Vol] 1.19 mmol/L Normal 1.08-1.30 [facility] Comment on above: Order Comment: Speci men Type: ARTERIAL BLOOD SPECIMENOrdering Facility: [facility] Address: [address] [place] [address] Performed By: #### A LLBG ####[facility] LABCLIA [id number] [place] [address] [place] Calcium.ionized adjusted to pH 7.4 (BldA) [Moles/Vol] 1.20 mmol/L Normal 1.08-1.30 [facility] Comment on above: Order Comment: Speci men Type: ARTERIAL BLOOD SPECIMENOrdering Facility: [facility] Address: [address] [place] [address] Performed By: #### A LLBG ####[facility] LABIA [id number] [place] [address] [place] Carboxyhemoglobin (BldA) [Mass fraction] 0.9 % Normal 0.0-2.0 [facility] Comment on above: Order Comment: Speci men Type: ARTERIAL BLOOD SPECIMENOrdering Facility: [facility] Address: [address] [place] [address] Result Comment: Carb oxyhemoglobin Reference Range for Smokers: 2.0-8.0% Performed By: #### A LLBG ####[facility] LABCLIA [id number] [place] [address] [place] CO2 (Bld) [Partial pressure] 35 mm Hg Low 36-46 [facility] Comment on above: Order Comment: Speci men Type: ARTERIAL BLOOD SPECIMENOrdering Facility: [facility] Address: [address] [place] [address] Performed By: #### A LLBG ####[facility] LABCLIA [id number] [place] [address] [place] CO2 adjusted to patient's actual temperature (Bld) [Partial pressure] 37 mmHg Normal 36-46 [facility] Comment on above: Order Comment: Speci men Type: ARTERIAL BLOOD SPECIMENOrdering Facility: [facility] Address: [address] [place] [address] Performed By: #### A LLBG ####[facility] LABCLIA [id number] [place] [address] [place] Glucose [Mass/Vol] 132 mg/dL High 60-105 [facility] Comment on above: Order Comment: Speci men Type: ARTERIAL BLOOD SPECIMENOrdering Facility: [facility] Address: [address] [place] [address] Performed By: #### A LLBG ####[facility] LABCLIA [id number] [place] [address] [place] HCO3 (Bld) [Moles/Vol] 21 mmol/L Low 22-26 [facility] Comment on above: Order Comment: Speci men Type: ARTERIAL BLOOD SPECIMENOrdering Facility: [facility] Address: [address] [place] [address] Performed By: #### A LLBG ####[facility] LABCLIA [id number] [place] [address] [place] Hematocrit (Bld) [Volume fraction] 37.1 % Low 39.0-51.0 [facility] Comment on above: Order Comment: Speci men Type: ARTERIAL BLOOD SPECIMENOrdering Facility: [facility] Address: [address] [place] [address] Performed By: #### A LLBG ####[facility] LABCLIA [id number] [place] [address] [place] Hemoglobin (Bld) [Mass/Vol] 12.0 g/dL Low 13.0-17.0 [facility] Comment on above: Order Comment: Speci men Type: ARTERIAL BLOOD SPECIMENOrdering Facility: [facility] Address: [address] [place] [address] Performed By: #### A LLBG ####[facility] LABCLIA [id number] [place] [address] [place] Lactate [Moles/Vol] 7.3 mmol/L High 0.5-2.2 [facility] Comment on above: Order Comment: Speci men Type: ARTERIAL BLOOD SPECIMENOrdering Facility: [facility] Address: [address] [place] [address] Performed By: #### A LLBG ####[facility] LABCLIA [id number] [address] [address] [place] Methemoglobin (Bld) [Mass fraction] 0.6 % Normal 0.0-1.5 [facility] Comment on above: Order Comment: Speci men Type: ARTERIAL BLOOD SPECIMENOrdering Facility: [facility] Address: [address] [place] [id number] Performed By: #### A LLBG ####[facility] LABCLIA [id number] [place] [address] [place] Oxygen (Bld) [Partial pressure] 122 mm Hg High 85-95 [facility] Comment on above: Order Comment: Speci men Type: ARTERIAL BLOOD SPECIMENOrdering Facility: [facility] Address: [address] [place] [id number] Performed By: #### A LLBG ####[facility] LABCLIA [id number] [place] [address] [place] Oxygen adjusted to patient's actual temperature (Bld) [Partial pressure] 129 mmHg High 85-95 [facility] Comment on above: Order Comment: Speci men Type: ARTERIAL BLOOD SPECIMENOrdering Facility: [facility] Address: [address] [place] [id number] Performed By: #### A LLBG ####[facility] LABCLIA [id number] [address] [address] [place] Oxyhemoglobin (BldA) [Mass fraction] 97 % Normal 95-98 [facility] Comment on above: Order Comment: Speci men Type: ARTERIAL BLOOD SPECIMENOrdering Facility: [facility] Address: [address] [place] [id number] Performed By: #### A LLBG ####[facility] LABCLIA [id number] [place] [address] [place] pH (Bld) 7.40 [pH] Normal 7.35-7.45 [facility] Comment on above: Order Comment: Speci men Type: ARTERIAL BLOOD SPECIMENOrdering Facility: [facility] Address: [address] [place] [address] Performed By: #### A LLBG ####[facility] LABCLIA [id number] [place] [address] [place] pH adjusted to patient's actual temperature (Bld) 7.39 Normal 7.35-7.45 [facility] Comment on above: Order Comment: Speci men Type: ARTERIAL BLOOD SPECIMENOrdering Facility: [facility] Address: [address] [place] [address] Performed By: #### A LLBG ####[facility] LABCLIA [id number] [place] [address] [place] PO2 / FIO2 RATIO 407 mmHg Normal >300 [facility] Comment on above: Order Comment: Speci men Type: ARTERIAL BLOOD SPECIMENOrdering Facility: [facility] Address: [address] [place] [address] Performed By: #### A LLBG ####[facility] LABCLIA [id number] [place] [address] [place] Potassium [Moles/Vol] 4.4 mmol/L Normal 3.5-5.0 [facility] Comment on above: Order Comment: Speci men Type: ARTERIAL BLOOD SPECIMENOrdering Facility: [facility] Address: [address] [place] [address] Performed By: #### A LLBG ####[facility] LABCLIA [id number] [place] [address] [place] Sodium [Moles/Vol] 138 mmol/L Normal 136-144 [facility] Comment on above: Order Comment: Speci men Type: ARTERIAL BLOOD SPECIMENOrdering Facility: [facility] Address: [address] [place] [address] Performed By: #### A LLBG ####[facility] LABCLIA [id number] [place] [address] [place] Base deficit (BldA) [Moles/Vol] -2 mmol/L Normal -2-0 [facility] Comment on above: Order Comment: Speci men Type: ARTERIAL BLOOD SPECIMENOrdering Facility: [facility] Address: [address] [place] [address] Performed By: #### A LLBG ####[facility] LABCLIA [id number] [place] [address] [place] Body temperature 99.14 [degF] Normal [facility] Comment on above: Order Comment: Speci men Type: ARTERIAL BLOOD SPECIMENOrdering Facility: [facility] Address: [address] [place] [address] Performed By: #### A LLBG ####[facility] LABCLIA [id number] [place] [address] [place] Calcium.ionized (Bld) [Mass/Vol] 1.24 mmol/L Normal 1.08-1.30 [facility] Comment on above: Order Comment: Speci men Type: ARTERIAL BLOOD SPECIMENOrdering Facility: [facility] Address: [address] [place] [address] Performed By: #### A LLBG ####[facility] LABCLIA [id number] [place] [address] [place] Calcium.ionized adjusted to pH 7.4 (BldA) [Moles/Vol] 1.22 mmol/L Normal 1.08-1.30 [facility] Comment on above: Order Comment: Speci men Type: ARTERIAL BLOOD SPECIMENOrdering Facility: [facility] Address: [address] [place] [address] Performed By: #### A LLBG ####[facility] LABCLIA [id number] [place] [address] [place] Carboxyhemoglobin (BldA) [Mass fraction] 1.5 % Normal 0.0-2.0 [facility] Comment on above: Order Comment: Speci men Type: ARTERIAL BLOOD SPECIMENOrdering Facility: [facility] Address: [address] [place] [address] Result Comment: Carb oxyhemoglobin Reference Range for Smokers: 2.0-8.0% Performed By: #### A LLBG ####[facility] LABIA [id number] [place] [address] [place] CO2 (Bld) [Partial pressure] 39 mm Hg Normal 36-46 [facility] Comment on above: Order Comment: Speci men Type: ARTERIAL BLOOD SPECIMENOrdering Facility: [facility] Address: [address] [place] [address] Performed By: #### A LLBG ####[facility] LABIA [id number] [place] [address] [place] CO2 adjusted to patient's actual temperature (Bld) [Partial pressure] 40 mmHg Normal 36-46 [facility] Comment on above: Order Comment: Speci men Type: ARTERIAL BLOOD SPECIMENOrdering Facility: [facility] Address: [address] [place] [address] Performed By: #### A LLBG ####[facility] LABIA [id number] [place] [address] [place] FIO2 40 % Normal [facility] Comment on above: Order Comment: Speci men Type: ARTERIAL BLOOD SPECIMENOrdering Facility: [facility] Address: [address] [place] [address] Performed By: #### A LLBG ####[facility] LABIA [id number] [place] [address] [place] Glucose [Mass/Vol] 157 mg/dL High 60-105 [facility] Comment on above: Order Comment: Speci men Type: ARTERIAL BLOOD SPECIMENOrdering Facility: [facility] Address: [address] [place] [address] Performed By: #### A LLBG ####[facility] LABCLIA [id number] [place] [address] [place] HCO3 (Bld) [Moles/Vol] 22 mmol/L Normal 22-26 [facility] Comment on above: Order Comment: Speci men Type: ARTERIAL BLOOD SPECIMENOrdering Facility: [facility] Address: [address] [place] [address] Performed By: #### A LLBG ####[facility] LABCLIA [id number] [place] [address] [place] Hematocrit (Bld) [Volume fraction] 38.3 % Low 39.0-51.0 [facility] Comment on above: Order Comment: Speci men Type: ARTERIAL BLOOD SPECIMENOrdering Facility: [facility] Address: [address] [place] [address] Performed By: #### A LLBG ####[facility] LABCLIA [id number] [place] [address] [place] Hemoglobin (Bld) [Mass/Vol] 12.5 g/dL Low 13.0-17.0 [facility] Comment on above: Order Comment: Speci men Type: ARTERIAL BLOOD SPECIMENOrdering Facility: [facility] Address: [address] [place] [address] Performed By: #### A LLBG ####[facility] LABCLIA [id number] [place] [address] [place] Lactate [Moles/Vol] 9.0 mmol/L High 0.5-2.2 [facility] Comment on above: Order Comment: Speci men Type: ARTERIAL BLOOD SPECIMENOrdering Facility: [facility] Address: [address] [place] [address] Performed By: #### A LLBG ####[facility] LABCLIA [id number] [address] [address] [place] Methemoglobin (Bld) [Mass fraction] 1.3 % Normal 0.0-1.5 [facility] Comment on above: Order Comment: Speci men Type: ARTERIAL BLOOD SPECIMENOrdering Facility: [facility] Address: [address] [id number] Performed By: #### A LLBG ####[facility] LABCLIA [id number] [place] [id number] [place] O2 THERAPY VENT=Ventilator Normal [facility] Comment on above: Order Comment: Speci men Type: ARTERIAL BLOOD SPECIMENOrdering Facility: [facility] Address: [address] [place], [place] [address] Performed By: #### A LLBG ####[facility] LABCLIA [id number] [place] [id number] [place] Oxygen (Bld) [Partial pressure] 147 mm Hg High 85-95 [facility] Comment on above: Order Comment: Speci men Type: ARTERIAL BLOOD SPECIMENOrdering Facility: [facility] Address: [address] [id number] Performed By: #### A LLBG ####[facility] LABCLIA [id number] [place] [id number] [place] Oxygen adjusted to patient's actual temperature (Bld) [Partial pressure] 148 mmHg High 85-95 [facility] Comment on above: Order Comment: Speci men Type: ARTERIAL BLOOD SPECIMENOrdering Facility: [facility] Address: [address] [place] [address] Performed By: #### A LLBG ####[facility] LABCLIA [id number] [address] [address] [place] Oxyhemoglobin (BldA) [Mass fraction] 97 % Normal 95-98 [facility] Comment on above: Order Comment: Speci men Type: ARTERIAL BLOOD SPECIMENOrdering Facility: [facility] Address: [address] [place] [address] Performed By: #### A LLBG ####[facility] LABCLIA [id number] [place] [address] [place] pH (Bld) 7.37 [pH] Normal 7.35-7.45 [facility] Comment on above: Order Comment: Speci men Type: ARTERIAL BLOOD SPECIMENOrdering Facility: [facility] Address: [address] [place] [address] Performed By: #### A LLBG ####[facility] LABCLIA [id number] [place] [address] [place] pH adjusted to patient's actual temperature (Bld) 7.37 Normal 7.35-7.45 [facility] Comment on above: Order Comment: Speci men Type: ARTERIAL BLOOD SPECIMENOrdering Facility: [facility] Address: [address] [place] [address] Performed By: #### A LLBG ####[facility] LABIA [id number] [place] [address] [place] PO2 / FIO2 RATIO 368 mmHg Normal >300 [facility] Comment on above: Order Comment: Speci men Type: ARTERIAL BLOOD SPECIMENOrdering Facility: [facility] Address: [address] [place] [address] Performed By: #### A LLBG ####[facility] LABCLIA [id number] [place] [address] [place] Potassium [Moles/Vol] 4.1 mmol/L Normal 3.5-5.0 [facility] Comment on above: Order Comment: Speci men Type: ARTERIAL BLOOD SPECIMENOrdering Facility: [facility] Address: [address] [place] [address] Performed By: #### A LLBG ####[facility] LABCLIA [id number] [place] [id number] [place] Sodium [Moles/Vol] 138 mmol/L Normal 136-144 [facility] Comment on above: Order Comment: Speci men Type: ARTERIAL BLOOD SPECIMENOrdering Facility: [facility] Address: [address] [place] [address] Performed By: #### A LLBG ####[facility] LABCLIA [id number] [place] [address] [place] Base deficit (BldA) [Moles/Vol] -6 mmol/L Low -2-0 [facility] Comment on above: Order Comment: Speci men Type: ARTERIAL BLOOD SPECIMENOrdering Facility: [facility] Address: [address] [place] [address] Performed By: #### A LLBG ####[facility] LABCLIA [id number] [place] [address] [place] Body temperature 99.14 [degF] Normal [facility] Comment on above: Order Comment: Speci men Type: ARTERIAL BLOOD SPECIMENOrdering Facility: [facility] Address: [address] [place] [address] Performed By: #### A LLBG ####[facility] LABCLIA [id number] [place] [address] [place] Order Comment: Speci men Type: VENOUS BLOOD SPECIMENOrdering Facility: [facility] Address: [address] [place] [address] Performed By: #### 2 4344-4 ####[facility] LABCLIA [id number] [place] [address] [place] Calcium.ionized (Bld) [Mass/Vol] 1.20 mmol/L Normal 1.08-1.30 [facility] Comment on above: Order Comment: Speci men Type: ARTERIAL BLOOD SPECIMENOrdering Facility: [facility] Address: [address] [place] [address] Performed By: #### A LLBG ####[facility] LABIA [id number] [place] [address] [place] Calcium.ionized adjusted to pH 7.4 (BldA) [Moles/Vol] 1.14 mmol/L Normal 1.08-1.30 [facility] Comment on above: Order Comment: Speci men Type: ARTERIAL BLOOD SPECIMENOrdering Facility: [facility] Address: [address] [place] [address] Performed By: #### A LLBG ####[facility] LABIA [id number] [place] [address] [place] Carboxyhemoglobin (BldA) [Mass fraction] 1.0 % Normal 0.0-2.0 [facility] Comment on above: Order Comment: Speci men Type: ARTERIAL BLOOD SPECIMENOrdering Facility: [facility] Address: [address] [place] [address] Result Comment: Carb oxyhemoglobin Reference Range for Smokers: 2.0-8.0% Performed By: #### A LLBG ####[facility] [id number] [place] [address] [place] CO2 (Bld) [Partial pressure] 38 mm Hg Normal 36-46 [facility] Comment on above: Order Comment: Speci men Type: ARTERIAL BLOOD SPECIMENOrdering Facility: [facility] Address: [address] [place] [address] Performed By: #### A LLBG ####[facility] LABIA [id number] [place] [address] [place] CO2 adjusted to patient's actual temperature (Bld) [Partial pressure] 39 mmHg Normal 36-46 [facility] Comment on above: Order Comment: Speci men Type: ARTERIAL BLOOD SPECIMENOrdering Facility: [facility] Address: [address] [place] [address] Performed By: #### A LLBG ####[facility] LABIA [id number] [place] [address] [place] FIO2 40 % Normal [facility] Comment on above: Order Comment: Speci men Type: ARTERIAL BLOOD SPECIMENOrdering Facility: [facility] Address: [address] [place] [address] Performed By: #### A LLBG ####[facility] LABCLIA [id number] [place] [address] [place] Order Comment: Speci men Type: VENOUS BLOOD SPECIMENOrdering Facility: [facility] Address: [address] [place] [address] Performed By: #### 2 4344-4 ####[facility] LABCLIA [id number] [place] [address] [place] Glucose [Mass/Vol] 166 mg/dL High 60-105 [facility] Comment on above: Order Comment: Speci men Type: ARTERIAL BLOOD SPECIMENOrdering Facility: [facility] Address: [address] [place] [address] Performed By: #### A LLBG ####[facility] LABCLIA [id number] [place] [address] [place] HCO3 (Bld) [Moles/Vol] 19 mmol/L Low 24-28 [facility] Comment on above: Order Comment: Speci men Type: ARTERIAL BLOOD SPECIMENOrdering Facility: [facility] Address: [address] [place] [address] Performed By: #### A LLBG ####[facility] LABCLIA [id number] [place] [address] [place] Order Comment: Speci men Type: VENOUS BLOOD SPECIMENOrdering Facility: [facility] Address: [address] [place] [address] Performed By: #### 2 4344-4 ####[facility] LABCLIA [id number] [place] [address] [place] Hematocrit (Bld) [Volume fraction] 41.0 % Normal 39.0-51.0 [facility] Comment on above: Order Comment: Speci men Type: ARTERIAL BLOOD SPECIMENOrdering Facility: [facility] Address: [address] [place] [address] Performed By: #### A LLBG ####[facility] LABCLIA [id number] [place] [address] [place] Hemoglobin (Bld) [Mass/Vol] 13.4 g/dL Normal 13.0-17.0 [facility] Comment on above: Order Comment: Speci men Type: ARTERIAL BLOOD SPECIMENOrdering Facility: [facility] Address: [address] [place] [address] Performed By: #### A LLBG ####[facility] LABCLIA [id number] [place] [address] [place] Lactate [Moles/Vol] 8.3 mmol/L High 0.5-2.2 [facility] Comment on above: Order Comment: Speci men Type: ARTERIAL BLOOD SPECIMENOrdering Facility: [facility] Address: [address] [place] [address] Performed By: #### A LLBG ####[facility] LABCLIA [id number] [place] [address] [place] Methemoglobin (Bld) [Mass fraction] 0.9 % Normal 0.0-1.5 [facility] Comment on above: Order Comment: Speci men Type: ARTERIAL BLOOD SPECIMENOrdering Facility: [facility] Address: [address] [place] [address] Performed By: #### A LLBG ####[facility] LABCLIA [id number] [place] [address] [place] Order Comment: Speci men Type: VENOUS BLOOD SPECIMENOrdering Facility: [facility] Address: [address] [place] [address] Performed By: #### 2 4344-4 ####[facility] LABCLIA [id number] [address] [address] [place] O2 THERAPY VENT=Ventilator Normal [facility] Comment on above: Order Comment: Speci men Type: ARTERIAL BLOOD SPECIMENOrdering Facility: [facility] Address: [address] [id number] Performed By: #### A LLBG ####[facility] LABCLIA [id number] [address] [address] [place] Order Comment: Speci men Type: VENOUS BLOOD SPECIMENOrdering Facility: [facility] Address: [address] [id number] Performed By: #### 2 4344-4 ####[facility] LABCLIA [id number] [place] [id number] [place] Oxygen (Bld) [Partial pressure] 156 mm Hg High 85-95 [facility] Comment on above: Order Comment: Speci men Type: ARTERIAL BLOOD SPECIMENOrdering Facility: [facility] Address: [address] [id number] Performed By: #### A LLBG ####[facility] LABCLIA [id number] [place] [id number] [place] Oxygen adjusted to patient's actual temperature (Bld) [Partial pressure] 158 mmHg High 85-95 [facility] Comment on above: Order Comment: Speci men Type: ARTERIAL BLOOD SPECIMENOrdering Facility: [facility] Address: [address] [id number] Performed By: #### A LLBG ####[facility] LABCLIA [id number] [place] [id number] [place] Oxyhemoglobin (BldA) [Mass fraction] 97 % Normal 95-98 [facility] Comment on above: Order Comment: Speci men Type: ARTERIAL BLOOD SPECIMENOrdering Facility: [facility] Address: [address] [id number] Performed By: #### A LLBG ####[facility] LABCLIA [id number] [place] [address] [place] pH (Bld) 7.32 [pH] Low 7.35-7.45 [facility] Comment on above: Order Comment: Speci men Type: ARTERIAL BLOOD SPECIMENOrdering Facility: [facility] Address: [address] [place] [address] Performed By: #### A LLBG ####[facility] LABCLIA [id number] [place] [address] [place] pH adjusted to patient's actual temperature (Bld) 7.31 Low 7.35-7.45 [facility] Comment on above: Order Comment: Speci men Type: ARTERIAL BLOOD SPECIMENOrdering Facility: [facility] Address: [address] [place] [address] Performed By: #### A LLBG ####[facility] LABCLIA [id number] [place] [address] [place] PO2 / FIO2 RATIO 390 mmHg Normal >300 [facility] Comment on above: Order Comment: Speci men Type: ARTERIAL BLOOD SPECIMENOrdering Facility: [facility] Address: [address] [place] [address] Performed By: #### A LLBG ####[facility] LABCLIA [id number] [place] [address] [place] Potassium [Moles/Vol] 3.9 mmol/L Normal 3.5-5.0 [facility] Comment on above: Order Comment: Speci men Type: ARTERIAL BLOOD SPECIMENOrdering Facility: [facility] Address: [address] [place] [address] Performed By: #### A LLBG ####[facility] LABCLIA [id number] [place] [address] [place] Sodium [Moles/Vol] 142 mmol/L Normal 136-144 [facility] Comment on above: Order Comment: Speci men Type: ARTERIAL BLOOD SPECIMENOrdering Facility: [facility] Address: [address] [place] [address] Performed By: #### A LLBG ####[facility] LABCLIA [id number] [place] [address] [place] Base deficit (BldA) [Moles/Vol] -4 mmol/L Low -2-0 [facility] Comment on above: Order Comment: Speci men Type: ARTERIAL BLOOD SPECIMENOrdering Facility: [facility] Address: [address] [place] [address] Performed By: #### A LLBG ####[facility] LABCLIA [id number] [place] [address] [place] Body temperature 97.7 [degF] Normal [facility] Comment on above: Order Comment: Speci men Type: ARTERIAL BLOOD SPECIMENOrdering Facility: [facility] Address: [address] [place] [address] Performed By: #### A LLBG ####[facility] LABCLIA [id number] [place] [address] [place] Calcium.ionized (Bld) [Mass/Vol] 1.15 mmol/L Normal 1.08-1.30 [facility] Comment on above: Order Comment: Speci men Type: ARTERIAL BLOOD SPECIMENOrdering Facility: [facility] Address: [address] [place] [address] Performed By: #### A LLBG ####[facility] LABCLIA [id number] [place] [address] [place] Calcium.ionized adjusted to pH 7.4 (BldA) [Moles/Vol] 1.09 mmol/L Normal 1.08-1.30 [facility] Comment on above: Order Comment: Speci men Type: ARTERIAL BLOOD SPECIMENOrdering Facility: [facility] Address: [address] [place] [address] Performed By: #### A LLBG ####[facility] LABCLIA [id number] [place] [address] [place] Carboxyhemoglobin (BldA) [Mass fraction] 0.9 % Normal 0.0-2.0 [facility] Comment on above: Order Comment: Speci men Type: ARTERIAL BLOOD SPECIMENOrdering Facility: [facility] Address: [address] [place] [address] Result Comment: Carb oxyhemoglobin Reference Range for Smokers: 2.0-8.0% Performed By: #### A LLBG ####[facility] LABCLIA [id number] [place] [address] [place] CO2 (Bld) [Partial pressure] 45 mm Hg Normal 36-46 [facility] Comment on above: Order Comment: Speci men Type: ARTERIAL BLOOD SPECIMENOrdering Facility: [facility] Address: [address] [place] [address] Performed By: #### A LLBG ####[facility] LABCLIA [id number] [place] [address] [place] CO2 adjusted to patient's actual temperature (Bld) [Partial pressure] 44 mmHg Normal 36-46 [facility] Comment on above: Order Comment: Speci men Type: ARTERIAL BLOOD SPECIMENOrdering Facility: [facility] Address: [address] [place] [address] Performed By: #### A LLBG ####[facility] LABCLIA [id number] [place] [address] [place] FIO2 50 % Normal [facility] Comment on above: Order Comment: Speci men Type: ARTERIAL BLOOD SPECIMENOrdering Facility: [facility] Address: [address] [place] [address] Performed By: #### A LLBG ####[facility] LABCLIA [id number] [place] [address] [place] Glucose [Mass/Vol] 186 mg/dL High 60-105 [facility] Comment on above: Order Comment: Speci men Type: ARTERIAL BLOOD SPECIMENOrdering Facility: [facility] Address: [address] [place] [address] Performed By: #### A LLBG ####[facility] LABCLIA [id number] [place] [address] [place] HCO3 (Bld) [Moles/Vol] 22 mmol/L Normal 22-26 [facility] Comment on above: Order Comment: Speci men Type: ARTERIAL BLOOD SPECIMENOrdering Facility: [facility] Address: [address] [place] [address] Performed By: #### A LLBG ####[facility] LABCLIA [id number] [place] [address] [place] Hematocrit (Bld) [Volume fraction] 40.4 % Normal 39.0-51.0 [facility] Comment on above: Order Comment: Speci men Type: ARTERIAL BLOOD SPECIMENOrdering Facility: [facility] Address: [address] [place] [address] Performed By: #### A LLBG ####[facility] LABIA [id number] [place] [address] [place] Hemoglobin (Bld) [Mass/Vol] 13.1 g/dL Normal 13.0-17.0 [facility] Comment on above: Order Comment: Speci men Type: ARTERIAL BLOOD SPECIMENOrdering Facility: [facility] Address: [address] [place] [address] Performed By: #### A LLBG ####[facility] LABIA [id number] [place] [address] [place] Lactate [Moles/Vol] 7.1 mmol/L High 0.5-2.2 [facility] Comment on above: Order Comment: Speci men Type: ARTERIAL BLOOD SPECIMENOrdering Facility: [facility] Address: [address] [place] [address] Performed By: #### A LLBG ####[facility] LABCLIA [id number] [place] [address] [place] Methemoglobin (Bld) [Mass fraction] 1.0 % Normal 0.0-1.5 [facility] Comment on above: Order Comment: Speci men Type: ARTERIAL BLOOD SPECIMENOrdering Facility: [facility] Address: [address] [place], [place] [address] Performed By: #### A LLBG ####[facility] LABCLIA [id number] [place] [id number] [place] O2 THERAPY VENT=Ventilator Normal [facility] Comment on above: Order Comment: Speci men Type: ARTERIAL BLOOD SPECIMENOrdering Facility: [facility] Address: [address] [place], [place] [address] Performed By: #### A LLBG ####[facility] LABCLIA [id number] [place] [id number] [place] Oxygen (Bld) [Partial pressure] 191 mm Hg High 85-95 [facility] Comment on above: Order Comment: Speci men Type: ARTERIAL BLOOD SPECIMENOrdering Facility: [facility] Address: [address] [place], [place] [address] Performed By: #### A LLBG ####[facility] LABCLIA [id number] [place] [id number] [place] Oxygen adjusted to patient's actual temperature (Bld) [Partial pressure] 188 mmHg High 85-95 [facility] Comment on above: Order Comment: Speci men Type: ARTERIAL BLOOD SPECIMENOrdering Facility: [facility] Address: [address] [place], [place] [address] Performed By: #### A LLBG ####[facility] LABCLIA [id number] [address] [address] [place] Oxyhemoglobin (BldA) [Mass fraction] 97 % Normal 95-98 [facility] Comment on above: Order Comment: Speci men Type: ARTERIAL BLOOD SPECIMENOrdering Facility: [facility] Address: [address] [place] [address] Performed By: #### A LLBG ####[facility] LABCLIA [id number] [place] [address] [place] pH (Bld) 7.31 [pH] Low 7.35-7.45 [facility] Comment on above: Order Comment: Speci men Type: ARTERIAL BLOOD SPECIMENOrdering Facility: [facility] Address: [address] [place] [address] Performed By: #### A LLBG ####[facility] LABCLIA [id number] [place] [address] [place] pH adjusted to patient's actual temperature (Bld) 7.32 Low 7.35-7.45 [facility] Comment on above: Order Comment: Speci men Type: ARTERIAL BLOOD SPECIMENOrdering Facility: [facility] Address: [address] [place] [address] Performed By: #### A LLBG ####[facility] LABCLIA [id number] [place] [address] [place] PO2 / FIO2 RATIO 382 mmHg Normal >300 [facility] Comment on above: Order Comment: Speci men Type: ARTERIAL BLOOD SPECIMENOrdering Facility: [facility] Address: [address] [place] [address] Performed By: #### A LLBG ####[facility] LABCLIA [id number] [place] [address] [place] Potassium [Moles/Vol] 3.7 mmol/L Normal 3.5-5.0 [facility] Comment on above: Order Comment: Speci men Type: ARTERIAL BLOOD SPECIMENOrdering Facility: [facility] Address: [address] [place] [address] Performed By: #### A LLBG ####[facility] LABCLIA [id number] [place] [address] [place] Sodium [Moles/Vol] 141 mmol/L Normal 136-144 [facility] Comment on above: Order Comment: Speci men Type: ARTERIAL BLOOD SPECIMENOrdering Facility: [facility] Address: [address] [place] [address] Performed By: #### A LLBG ####[facility] LABIA [id number] [place] [address] [place] Base deficit (BldA) [Moles/Vol] -7 mmol/L Low -2-0 [facility] Comment on above: Order Comment: Speci men Type: ARTERIAL BLOOD SPECIMENOrdering Facility: [facility] Address: [address] [place] [address] Performed By: #### A LLBG ####[facility] LABIA [id number] [place] [address] [place] Body temperature 97.7 [degF] [facility] Comment on above: Order Comment: Speci men Type: ARTERIAL BLOOD SPECIMENOrdering Facility: [facility] Address: [address] [place] [address] Performed By: #### A LLBG ####[facility] LABIA [id number] [place] [address] [place] Calcium.ionized (Bld) [Mass/Vol] 1.20 mmol/L Normal 1.08-1.30 [facility] Comment on above: Order Comment: Speci men Type: ARTERIAL BLOOD SPECIMENOrdering Facility: [facility] Address: [address] [place] [address] Performed By: #### A LLBG ####[facility] LABIA [id number] [place] [address] [place] Calcium.ionized adjusted to pH 7.4 (BldA) [Moles/Vol] 1.12 mmol/L Normal 1.08-1.30 [facility] Comment on above: Order Comment: Speci men Type: ARTERIAL BLOOD SPECIMENOrdering Facility: [facility] Address: [address] [place] [address] Performed By: #### A LLBG ####[facility] LABCLIA [id number] [address] [address] [place] Carboxyhemoglobin (BldA) [Mass fraction] 1.1 % Normal 0.0-2.0 [facility] Comment on above: Order Comment: Speci men Type: ARTERIAL BLOOD SPECIMENOrdering Facility: [facility] Address: [address] [place] [address] Result Comment: Carb oxyhemoglobin Reference Range for Smokers: 2.0-8.0% Performed By: #### A LLBG ####[facility] LABCLIA [id number] [place] [address] [place] CO2 (Bld) [Partial pressure] 43 mm Hg Normal 36-46 [facility] Comment on above: Order Comment: Speci men Type: ARTERIAL BLOOD SPECIMENOrdering Facility: [facility] Address: [address] [place] [address] Performed By: #### A LLBG ####[facility] LABCLIA [id number] [place] [address] [place] CO2 adjusted to patient's actual temperature (Bld) [Partial pressure] 42 mmHg Normal 36-46 [facility] Comment on above: Order Comment: Speci men Type: ARTERIAL BLOOD SPECIMENOrdering Facility: [facility] Address: [address] [place] [address] Performed By: #### A LLBG ####[facility] LABCLIA [id number] [place] [id number] [place] FIO2 50 % Normal [facility] Comment on above: Order Comment: Speci men Type: ARTERIAL BLOOD SPECIMENOrdering Facility: [facility] Address: [address] [place] [address] Performed By: #### A LLBG ####[facility] LABCLIA [id number] [place] [address] [place] Glucose [Mass/Vol] 179 mg/dL High 60-105 [facility] Comment on above: Order Comment: Speci men Type: ARTERIAL BLOOD SPECIMENOrdering Facility: [facility] Address: [address] [place] [address] Performed By: #### A LLBG ####[facility] LABCLIA [id number] [place] [address] [place] HCO3 (Bld) [Moles/Vol] 19 mmol/L Low 22-26 [facility] Comment on above: Order Comment: Speci men Type: ARTERIAL BLOOD SPECIMENOrdering Facility: [facility] Address: [address] [place] [address] Performed By: #### A LLBG ####[facility] LABCLIA [id number] [place] [address] [place] Hematocrit (Bld) [Volume fraction] 42.1 % Normal 39.0-51.0 [facility] Comment on above: Order Comment: Speci men Type: ARTERIAL BLOOD SPECIMENOrdering Facility: [facility] Address: [address] [place] [address] Performed By: #### A LLBG ####[facility] LABCLIA [id number] [place] [address] [place] Hemoglobin (Bld) [Mass/Vol] 13.7 g/dL Normal 13.0-17.0 [facility] Comment on above: Order Comment: Speci men Type: ARTERIAL BLOOD SPECIMENOrdering Facility: [facility] Address: [address] [place] [address] Performed By: #### A LLBG ####[facility] LABCLIA [id number] [place] [address] [place] Lactate [Moles/Vol] 6.4 mmol/L High 0.5-2.2 [facility] Comment on above: Order Comment: Speci men Type: ARTERIAL BLOOD SPECIMENOrdering Facility: [facility] Address: [address] [place] [address] Performed By: #### A LLBG ####[facility] LABCLIA [id number] [address] [address] [place] Methemoglobin (Bld) [Mass fraction] 1.4 % Normal 0.0-1.5 [facility] Comment on above: Order Comment: Speci men Type: ARTERIAL BLOOD SPECIMENOrdering Facility: [facility] Address: [address] [place] [id number] Performed By: #### A LLBG ####[facility] LABCLIA [id number] [address] [address] [place] O2 THERAPY VENT=Ventilator Normal [facility] Comment on above: Order Comment: Speci men Type: ARTERIAL BLOOD SPECIMENOrdering Facility: [facility] Address: [address] [place] [id number] Performed By: #### A LLBG ####[facility] LABCLIA [id number] [address] [address] [place] Oxygen (Bld) [Partial pressure] 198 mm Hg High 85-95 [facility] Comment on above: Order Comment: Speci men Type: ARTERIAL BLOOD SPECIMENOrdering Facility: [facility] Address: [address] [place] [address] Performed By: #### A LLBG ####[facility] LABCLIA [id number] [address] [address] [place] Oxygen adjusted to patient's actual temperature (Bld) [Partial pressure] 196 mmHg High 85-95 [facility] Comment on above: Order Comment: Speci men Type: ARTERIAL BLOOD SPECIMENOrdering Facility: [facility] Address: [address] [place] [address] Performed By: #### A LLBG ####[facility] LABCLIA [id number] [place] [address] [place] Oxyhemoglobin (BldA) [Mass fraction] 97 % Normal 95-98 [facility] Comment on above: Order Comment: Speci men Type: ARTERIAL BLOOD SPECIMENOrdering Facility: [facility] Address: [address] [place] [address] Performed By: #### A LLBG ####[facility] LABCLIA [id number] [place] [address] [place] pH (Bld) 7.27 [pH] Low 7.35-7.45 [facility] Comment on above: Order Comment: Speci men Type: ARTERIAL BLOOD SPECIMENOrdering Facility: [facility] Address: [address] [place] [address] Performed By: #### A LLBG ####[facility] LABIA [id number] [place] [address] [place] pH adjusted to patient's actual temperature (Bld) 7.28 Low 7.35-7.45 [facility] Comment on above: Order Comment: Speci men Type: ARTERIAL BLOOD SPECIMENOrdering Facility: [facility] Address: [address] [place] [address] Performed By: #### A LLBG ####[facility] LABIA [id number] [place] [address] [place] PO2 / FIO2 RATIO 396 mmHg Normal >300 [facility] Comment on above: Order Comment: Speci men Type: ARTERIAL BLOOD SPECIMENOrdering Facility: [facility] Address: [address] [place] [address] Performed By: #### A LLBG ####[facility] LABIA [id number] [place] [address] [place] Potassium [Moles/Vol] 3.8 mmol/L Normal 3.5-5.0 [facility] Comment on above: Order Comment: Speci men Type: ARTERIAL BLOOD SPECIMENOrdering Facility: [facility] Address: [address] [place] [address] Performed By: #### A LLBG ####[facility] LABCLIA [id number] [place] [address] [place] Sodium [Moles/Vol] 140 mmol/L Normal 136-144 [facility] Comment on above: Order Comment: Speci men Type: ARTERIAL BLOOD SPECIMENOrdering Facility: [facility] Address: [address] [place] [address] Performed By: #### A LLBG ####[facility] LABCLIA [id number] [place] [address] [place] Base deficit (BldA) [Moles/Vol] -7 mmol/L Low -2-0 [facility] Comment on above: Order Comment: Speci men Type: ARTERIAL BLOOD SPECIMENOrdering Facility: [facility] Address: [address] [place] [address] Performed By: #### A LLBG ####[facility] LABCLIA [id number] [place] [address] [place] Body temperature 98.6 [degF] [facility] Comment on above: Order Comment: Speci men Type: ARTERIAL BLOOD SPECIMENOrdering Facility: [facility] Address: [address] [place] [address] Performed By: #### A LLBG ####[facility] LABCLIA [id number] [place] [address] [place] Calcium.ionized (Bld) [Mass/Vol] 1.22 mmol/L Normal 1.08-1.30 [facility] Comment on above: Order Comment: Speci men Type: ARTERIAL BLOOD SPECIMENOrdering Facility: [facility] Address: [address] [place] [address] Performed By: #### A LLBG ####[facility] LABCLIA [id number] [place] [address] [place] Calcium.ionized adjusted to pH 7.4 (BldA) [Moles/Vol] 1.14 mmol/L Normal 1.08-1.30 [facility] Comment on above: Order Comment: Speci men Type: ARTERIAL BLOOD SPECIMENOrdering Facility: [facility] Address: [address] [place] [address] Performed By: #### A LLBG ####[facility] LABCLIA [id number] [place] [address] [place] Carboxyhemoglobin (BldA) [Mass fraction] 1.3 % Normal 0.0-2.0 [facility] Comment on above: Order Comment: Speci men Type: ARTERIAL BLOOD SPECIMENOrdering Facility: [facility] Address: [address] [place] [address] Result Comment: Carb oxyhemoglobin Reference Range for Smokers: 2.0-8.0% Performed By: #### A LLBG ####[facility] LABCLIA [id number] [place] [address] [place] CO2 (Bld) [Partial pressure] 41 mm Hg Normal 36-46 [facility] Comment on above: Order Comment: Speci men Type: ARTERIAL BLOOD SPECIMENOrdering Facility: [facility] Address: [address] [place] [address] Performed By: #### A LLBG ####[facility] LABCLIA [id number] [place] [address] [place] FIO2 90 % Normal [facility] Comment on above: Order Comment: Speci men Type: ARTERIAL BLOOD SPECIMENOrdering Facility: [facility] Address: [address] [place] [address] Performed By: #### A LLBG ####[facility] LABCLIA [id number] [place] [address] [place] Glucose [Mass/Vol] 178 mg/dL High 60-105 [facility] Comment on above: Order Comment: Speci men Type: ARTERIAL BLOOD SPECIMENOrdering Facility: [facility] Address: [address] [place] [address] Performed By: #### A LLBG ####[facility] LABCLIA [id number] [place] [address] [place] HCO3 (Bld) [Moles/Vol] 19 mmol/L Low 22-26 [facility] Comment on above: Order Comment: Speci men Type: ARTERIAL BLOOD SPECIMENOrdering Facility: [facility] Address: [address] [place] [address] Performed By: #### A LLBG ####[facility] LABCLIA [id number] [place] [address] [place] Hematocrit (Bld) [Volume fraction] 41.0 % Normal 39.0-51.0 [facility] Comment on above: Order Comment: Speci men Type: ARTERIAL BLOOD SPECIMENOrdering Facility: [facility] Address: [address] [place] [address] Performed By: #### A LLBG ####[facility] LABCLIA [id number] [place] [address] [place] Hemoglobin (Bld) [Mass/Vol] 13.4 g/dL Normal 13.0-17.0 [facility] Comment on above: Order Comment: Speci men Type: ARTERIAL BLOOD SPECIMENOrdering Facility: [facility] Address: [address] [place] [address] Performed By: #### A LLBG ####[facility] LABCLIA [id number] [place] [address] [place] Lactate [Moles/Vol] 4.9 mmol/L High 0.5-2.2 [facility] Comment on above: Order Comment: Speci men Type: ARTERIAL BLOOD SPECIMENOrdering Facility: [facility] Address: [address] [place] [address] Performed By: #### A LLBG ####[facility] LABCLIA [id number] [address] [address] [place] Methemoglobin (Bld) [Mass fraction] 1.0 % Normal 0.0-1.5 [facility] Comment on above: Order Comment: Speci men Type: ARTERIAL BLOOD SPECIMENOrdering Facility: [facility] Address: [address] [place] [address] Performed By: #### A LLBG ####[facility] LABCLIA [id number] [place] [id number] [place] O2 THERAPY VENT=Ventilator Normal [facility] Comment on above: Order Comment: Speci men Type: ARTERIAL BLOOD SPECIMENOrdering Facility: [facility] Address: [address] [place], [place] [address] Performed By: #### A LLBG ####[facility] LABIA [id number] [place] [address] [place] Oxygen (Bld) [Partial pressure] 290 mm Hg High 85-95 [facility] Comment on above: Order Comment: Speci men Type: ARTERIAL BLOOD SPECIMENOrdering Facility: [facility] Address: [address] [place] [id number] Performed By: #### A LLBG ####[facility] LABCLIA [id number] [place] [id number] [place] Oxyhemoglobin (BldA) [Mass fraction] 98 % Normal 95-98 [facility] Comment on above: Order Comment: Speci men Type: ARTERIAL BLOOD SPECIMENOrdering Facility: [facility] Address: [address] [place] [address] Performed By: #### A LLBG ####[facility] LABIA [id number] [place] [id number] [place] pH (Bld) 7.29 [pH] Low 7.35-7.45 [facility] Comment on above: Order Comment: Speci men Type: ARTERIAL BLOOD SPECIMENOrdering Facility: [facility] Address: [address] [place] [address] Performed By: #### A LLBG ####[facility] LABCLIA [id number] [place] [address] [place] PO2 / FIO2 RATIO 322 mmHg Normal >300 [facility] Comment on above: Order Comment: Speci men Type: ARTERIAL BLOOD SPECIMENOrdering Facility: [facility] Address: [address] [place] [address] Performed By: #### A LLBG ####[facility] LABCLIA [id number] [place] [address] [place] Potassium [Moles/Vol] 3.9 mmol/L Normal 3.5-5.0 [facility] Comment on above: Order Comment: Speci men Type: ARTERIAL BLOOD SPECIMENOrdering Facility: [facility] Address: [address] [place] [address] Performed By: #### A LLBG ####[facility] LABCLIA [id number] [place] [address] [place] Sodium [Moles/Vol] 140 mmol/L Normal 136-144 [facility] Comment on above: Order Comment: Speci men Type: ARTERIAL BLOOD SPECIMENOrdering Facility: [facility] Address: [address] [place] [address] Performed By: #### A LLBG ####[facility] LABCLIA [id number] [place] [address] [place] Base deficit (BldA) [Moles/Vol] -5 mmol/L Low -2-0 [facility] Comment on above: Order Comment: Speci men Type: ARTERIAL BLOOD SPECIMENOrdering Facility: [facility] Address: [address] [place] [address] Performed By: #### A LLBG ####[facility] LABCLIA [id number] [place] [address] [place] Body temperature 98.6 [degF] [facility] Comment on above: Order Comment: Speci men Type: ARTERIAL BLOOD SPECIMENOrdering Facility: [facility] Address: [address] [place] [address] Performed By: #### A LLBG ####[facility] LABCLIA [id number] [place] [address] [place] Calcium.ionized (Bld) [Mass/Vol] 1.19 mmol/L Normal 1.08-1.30 [facility] Comment on above: Order Comment: Speci men Type: ARTERIAL BLOOD SPECIMENOrdering Facility: [facility] Address: [address] [place] [address] Performed By: #### A LLBG ####[facility] LABCLIA [id number] [place] [address] [place] Calcium.ionized adjusted to pH 7.4 (BldA) [Moles/Vol] 1.14 mmol/L Normal 1.08-1.30 [facility] Comment on above: Order Comment: Speci men Type: ARTERIAL BLOOD SPECIMENOrdering Facility: [facility] Address: [address] [place] [address] Performed By: #### A LLBG ####[facility] LABCLIA [id number] [place] [address] [place] Carboxyhemoglobin (BldA) [Mass fraction] 1.4 % Normal 0.0-2.0 [facility] Comment on above: Order Comment: Speci men Type: ARTERIAL BLOOD SPECIMENOrdering Facility: [facility] Address: [address] [place] [address] Result Comment: Carb oxyhemoglobin Reference Range for Smokers: 2.0-8.0% Performed By: #### A LLBG ####[facility] LABCLIA [id number] [place] [address] [place] CO2 (Bld) [Partial pressure] 38 mm Hg Normal 36-46 [facility] Comment on above: Order Comment: Speci men Type: ARTERIAL BLOOD SPECIMENOrdering Facility: [facility] Address: [address] [place] [address] Performed By: #### A LLBG ####[facility] LABCLIA [id number] [place] [address] [place] FIO2 100 % Normal [facility] Comment on above: Order Comment: Speci men Type: ARTERIAL BLOOD SPECIMENOrdering Facility: [facility] Address: [address] [place] [address] Performed By: #### A LLBG ####[facility] LABCLIA [id number] [place] [address] [place] Glucose [Mass/Vol] 184 mg/dL High 60-105 [facility] Comment on above: Order Comment: Speci men Type: ARTERIAL BLOOD SPECIMENOrdering Facility: [facility] Address: [address] [place] [address] Performed By: #### A LLBG ####[facility] LABCLIA [id number] [place] [address] [place] HCO3 (Bld) [Moles/Vol] 19 mmol/L Low 22-26 [facility] Comment on above: Order Comment: Speci men Type: ARTERIAL BLOOD SPECIMENOrdering Facility: [facility] Address: [address] [place] [address] Performed By: #### A LLBG ####[facility] LABCLIA [id number] [place] [address] [place] Hematocrit (Bld) [Volume fraction] 40.7 % Normal 39.0-51.0 [facility] Comment on above: Order Comment: Speci men Type: ARTERIAL BLOOD SPECIMENOrdering Facility: [facility] Address: [address] [place] [address] Performed By: #### A LLBG ####[facility] LABCLIA [id number] [place] [id number] [place] Hemoglobin (Bld) [Mass/Vol] 13.2 g/dL Normal 13.0-17.0 [facility] Comment on above: Order Comment: Speci men Type: ARTERIAL BLOOD SPECIMENOrdering Facility: [facility] Address: [address] [place] [address] Performed By: #### A LLBG ####[facility] LABCLIA [id number] [place] [address] [place] Lactate [Moles/Vol] 4.2 mmol/L High 0.5-2.2 [facility] Comment on above: Order Comment: Speci men Type: ARTERIAL BLOOD SPECIMENOrdering Facility: [facility] Address: [address] [place] [address] Performed By: #### A LLBG ####[facility] LABCLIA [id number] [place] [address] [place] Methemoglobin (Bld) [Mass fraction] 0.8 % Normal 0.0-1.5 [facility] Comment on above: Order Comment: Speci men Type: ARTERIAL BLOOD SPECIMENOrdering Facility: [facility] Address: [address] [place] [address] Performed By: #### A LLBG ####[facility] LABCLIA [id number] [place] [address] [place] O2 THERAPY VENT=Ventilator Normal [facility] Comment on above: Order Comment: Speci men Type: ARTERIAL BLOOD SPECIMENOrdering Facility: [facility] Address: [address] [place] [address] Performed By: #### A LLBG ####[facility] LABCLIA [id number] [place] [address] [place] Oxygen (Bld) [Partial pressure] 334 mm Hg High 85-95 [facility] Comment on above: Order Comment: Speci men Type: ARTERIAL BLOOD SPECIMENOrdering Facility: [facility] Address: [address] [place] [address] Performed By: #### A LLBG ####[facility] LABCLIA [id number] [place] [address] [place] Oxyhemoglobin (BldA) [Mass fraction] 98 % Normal 95-98 [facility] Comment on above: Order Comment: Speci men Type: ARTERIAL BLOOD SPECIMENOrdering Facility: [facility] Address: [address] [place] [address] Performed By: #### A LLBG ####[facility] LABCLIA [id number] [place] [address] [place] pH (Bld) 7.33 [pH] Low 7.35-7.45 [facility] Comment on above: Order Comment: Speci men Type: ARTERIAL BLOOD SPECIMENOrdering Facility: [facility] Address: [address] [place] [address] Performed By: #### A LLBG ####[facility] LABCLIA [id number] [place] [address] [place] PO2 / FIO2 RATIO 334 mmHg Normal >300 [facility] Comment on above: Order Comment: Speci men Type: ARTERIAL BLOOD SPECIMENOrdering Facility: [facility] Address: [address] [place] [address] Performed By: #### A LLBG ####[facility] LABIA [id number] [place] [address] [place] Potassium [Moles/Vol] 3.6 mmol/L Normal 3.5-5.0 [facility] Comment on above: Order Comment: Speci men Type: ARTERIAL BLOOD SPECIMENOrdering Facility: [facility] Address[place] [address] [place] [address] Performed By: #### A LLBG ####[facility] LABIA [id number] [place] [address] [place] Sodium [Moles/Vol] 140 mmol/L Normal 136-144 [facility] Comment on above: Order Comment: Speci men Type: ARTERIAL BLOOD SPECIMENOrdering Facility: [facility] Address: [address] [place] [address] Performed By: #### A LLBG ####[facility] LABIA [id number] [place] [address] [place] Base deficit (BldA) [Moles/Vol] -5 mmol/L Low -2-0 [facility] Comment on above: Order Comment: Speci men Type: ARTERIAL BLOOD SPECIMENOrdering Facility: [facility] Address: [address] [place] [address] Performed By: #### A LLBG ####[facility] LABIA [id number] [place] [address] [place] Body temperature 98.6 [degF] Normal [facility] Comment on above: Order Comment: Speci men Type: ARTERIAL BLOOD SPECIMENOrdering Facility: [facility] Address: [address] [place] [address] Performed By: #### A LLBG ####[facility] LABIA [id number] [place] [address] [place] Calcium.ionized (Bld) [Mass/Vol] 1.22 mmol/L Normal 1.08-1.30 [facility] Comment on above: Order Comment: Speci men Type: ARTERIAL BLOOD SPECIMENOrdering Facility: [facility] Address: [address] [place] [address] Performed By: #### A LLBG ####[facility] LABIA [id number] [place] [address] [place] Calcium.ionized adjusted to pH 7.4 (BldA) [Moles/Vol] 1.11 mmol/L Normal 1.08-1.30 [facility] Comment on above: Order Comment: Speci men Type: ARTERIAL BLOOD SPECIMENOrdering Facility: [facility] Address: [address] [place], [place] [address] Performed By: #### A LLBG ####[facility] LABCLIA [id number] [place] [address] [place] Carboxyhemoglobin (BldA) [Mass fraction] 1.3 % Normal 0.0-2.0 [facility] Comment on above: Order Comment: Speci men Type: ARTERIAL BLOOD SPECIMENOrdering Facility: [facility] Address: [address] [place] [address] Result Comment: Carb oxyhemoglobin Reference Range for Smokers: 2.0-8.0% Performed By: #### A LLBG ####[facility] LABCLIA [id number] [place] [address] [place] CO2 (Bld) [Partial pressure] 54 mm Hg High 36-46 [facility] Comment on above: Order Comment: Speci men Type: ARTERIAL BLOOD SPECIMENOrdering Facility: [facility] Address: [address] [place] [address] Performed By: #### A LLBG ####[facility] LABCLIA [id number] [place] [address] [place] FIO2 100 % Normal [facility] Comment on above: Order Comment: Speci men Type: ARTERIAL BLOOD SPECIMENOrdering Facility: [facility] Address: [address] [place] [address] Performed By: #### A LLBG ####[facility] LABCLIA [id number] [place] [address] [place] Glucose [Mass/Vol] 198 mg/dL High 60-105 [facility] Comment on above: Order Comment: Speci men Type: ARTERIAL BLOOD SPECIMENOrdering Facility: [facility] Address: [address] [place] [address] Performed By: #### A LLBG ####[facility] LABCLIA [id number] [place] [address] [place] HCO3 (Bld) [Moles/Vol] 22 mmol/L Normal 22-26 [facility] Comment on above: Order Comment: Speci men Type: ARTERIAL BLOOD SPECIMENOrdering Facility: [facility] Address: [address] [place] [address] Performed By: #### A LLBG ####[facility] LABIA [id number] [place] [address] [place] Hematocrit (Bld) [Volume fraction] 39.3 % Normal 39.0-51.0 [facility] Comment on above: Order Comment: Speci men Type: ARTERIAL BLOOD SPECIMENOrdering Facility: [facility] Address: [address] [place] [address] Performed By: #### A LLBG ####[facility] LABIA [id number] [place] [address] [place] Hemoglobin (Bld) [Mass/Vol] 12.8 g/dL Low 13.0-17.0 [facility] Comment on above: Order Comment: Speci men Type: ARTERIAL BLOOD SPECIMENOrdering Facility: [facility] Address: [address] [place] [address] Performed By: #### A LLBG ####[facility] LABIA [id number] [place] [address] [place] Lactate [Moles/Vol] 3.7 mmol/L High 0.5-2.2 [facility] Comment on above: Order Comment: Speci men Type: ARTERIAL BLOOD SPECIMENOrdering Facility: [facility] Address: [address] [place] [address] Performed By: #### A LLBG ####[facility] LABIA [id number] [place] [address] [place] Methemoglobin (Bld) [Mass fraction] 0.8 % Normal 0.0-1.5 [facility] Comment on above: Order Comment: Speci men Type: ARTERIAL BLOOD SPECIMENOrdering Facility: [facility] Address: [address] [id number] Performed By: #### A LLBG ####[facility] LABCLIA [id number] [place] [address] [place] O2 THERAPY VENT=Ventilator Normal [facility] Comment on above: Order Comment: Speci men Type: ARTERIAL BLOOD SPECIMENOrdering Facility: [facility] Address: [address] [place] [address] Performed By: #### A LLBG ####[facility] LABCLIA [id number] [place] [address] [place] Oxygen (Bld) [Partial pressure] 135 mm Hg High 85-95 [facility] Comment on above: Order Comment: Speci men Type: ARTERIAL BLOOD SPECIMENOrdering Facility: [facility] Address: [address] [place] [address] Performed By: #### A LLBG ####[facility] LABCLIA [id number] [place] [address] [place] Oxyhemoglobin (BldA) [Mass fraction] 96 % Normal 95-98 [facility] Comment on above: Order Comment: Speci men Type: ARTERIAL BLOOD SPECIMENOrdering Facility: [facility] Address: [address] [place], [place] [id number] Performed By: #### A LLBG ####[facility] LABCLIA [id number] [place] [address] [place] pH (Bld) 7.24 [pH] Low 7.35-7.45 [facility] Comment on above: Order Comment: Speci men Type: ARTERIAL BLOOD SPECIMENOrdering Facility: [facility] Address: [address] [place], [place] [address] Performed By: #### A LLBG ####[facility] LABCLIA [id number] [place] [id number] [place] PO2 / FIO2 RATIO 135 mmHg Low >300 [facility] Comment on above: Order Comment: Speci men Type: ARTERIAL BLOOD SPECIMENOrdering Facility: [facility] Address: [address] [id number] Performed By: #### A LLBG ####[facility] LABCLIA [id number] [place] [id number] [place] Potassium [Moles/Vol] 3.9 mmol/L Normal 3.5-5.0 [facility] Comment on above: Order Comment: Speci men Type: ARTERIAL BLOOD SPECIMENOrdering Facility: [facility] Address: [address] [place] [address] Performed By: #### A LLBG ####[facility] LABCLIA [id number] [place] [address] [place] Sodium [Moles/Vol] 140 mmol/L Normal 136-144 [facility] Comment on above: Order Comment: Speci men Type: ARTERIAL BLOOD SPECIMENOrdering Facility: [facility] Address: [address] [place], [place] [id number] Performed By: #### A LLBG ####[facility] LABCLIA [id number] [place] [address] [place] Base deficit (BldA) [Moles/Vol] -2 mmol/L Normal -2-0 [facility] Comment on above: Order Comment: Speci men Type: ARTERIAL BLOOD SPECIMENOrdering Facility: [facility] Address: [address] [place], [place] [address] Performed By: #### A LLBG ####[facility] LABCLIA [id number] [place] [address] [place] Body temperature 98.6 [degF] Normal [facility] Comment on above: Order Comment: Speci men Type: ARTERIAL BLOOD SPECIMENOrdering Facility: [facility] Address: [address] [place], [place] [id number] Performed By: #### A LLBG ####[facility] LABCLIA [id number] [place] [address] [place] Calcium.ionized (Bld) [Mass/Vol] 1.23 mmol/L Normal 1.08-1.30 [facility] Comment on above: Order Comment: Speci men Type: ARTERIAL BLOOD SPECIMENOrdering Facility: [facility] Address: [address] [place] [address] Performed By: #### A LLBG ####[facility] LABCLIA [id number] [place] [address] [place] Calcium.ionized adjusted to pH 7.4 (BldA) [Moles/Vol] 1.18 mmol/L Normal 1.08-1.30 [facility] Comment on above: Order Comment: Speci men Type: ARTERIAL BLOOD SPECIMENOrdering Facility: [facility] Address: [address] [place] [address] Performed By: #### A LLBG ####[facility] LABIA [id number] [place] [address] [place] Carboxyhemoglobin (BldA) [Mass fraction] 1.3 % Normal 0.0-2.0 [facility] Comment on above: Order Comment: Speci men Type: ARTERIAL BLOOD SPECIMENOrdering Facility: [facility] Address: [address] [place] [address] Result Comment: Carb oxyhemoglobin Reference Range for Smokers: 2.0-8.0% Performed By: #### A LLBG ####[facility] LABCLIA [id number] [place] [address] [place] CO2 (Bld) [Partial pressure] 48 mm Hg High 36-46 [facility] Comment on above: Order Comment: Speci men Type: ARTERIAL BLOOD SPECIMENOrdering Facility: [facility] Address: [address] [place] [address] Performed By: #### A LLBG ####[facility] LABIA [id number] [place] [address] [place] Glucose [Mass/Vol] 115 mg/dL High 60-105 [facility] Comment on above: Order Comment: Speci men Type: ARTERIAL BLOOD SPECIMENOrdering Facility: [facility] Address: [address] [place] [address] Performed By: #### A LLBG ####[facility] LABCLIA [id number] [place] [address] [place] HCO3 (Bld) [Moles/Vol] 24 mmol/L Normal 22-26 [facility] Comment on above: Order Comment: Speci men Type: ARTERIAL BLOOD SPECIMENOrdering Facility: [facility] Address: [address] [place] [address] Performed By: #### A LLBG ####[facility] LABCLIA [id number] [place] [address] [place] Hematocrit (Bld) [Volume fraction] 37.4 % Low 39.0-51.0 [facility] Comment on above: Order Comment: Speci men Type: ARTERIAL BLOOD SPECIMENOrdering Facility: [facility] Address: [address] [place] [address] Performed By: #### A LLBG ####[facility] LABCLIA [id number] [place] [address] [place] Hemoglobin (Bld) [Mass/Vol] 12.1 g/dL Low 13.0-17.0 [facility] Comment on above: Order Comment: Speci men Type: ARTERIAL BLOOD SPECIMENOrdering Facility: [facility] Address: [address] [place] [address] Performed By: #### A LLBG ####[facility] LABCLIA [id number] [place] [address] [place] Lactate [Moles/Vol] 2.1 mmol/L Normal 0.5-2.2 [facility] Comment on above: Order Comment: Speci men Type: ARTERIAL BLOOD SPECIMENOrdering Facility: [facility] Address: [address] [place] [address] Performed By: #### A LLBG ####[facility] LABCLIA [id number] [place] [address] [place] Methemoglobin (Bld) [Mass fraction] 1.0 % Normal 0.0-1.5 [facility] Comment on above: Order Comment: Speci men Type: ARTERIAL BLOOD SPECIMENOrdering Facility: [facility] Address: [address] [place] [address] Performed By: #### A LLBG ####[facility] LABCLIA [id number] [place] [address] [place] O2 THERAPY VENT=Ventilator Normal [facility] Comment on above: Order Comment: Speci men Type: ARTERIAL BLOOD SPECIMENOrdering Facility: [facility] Address: [address] [place] [address] Performed By: #### A LLBG ####[facility] LABCLIA [id number] [place] [address] [place] Oxygen (Bld) [Partial pressure] 167 mm Hg High 85-95 [facility] Comment on above: Order Comment: Speci men Type: ARTERIAL BLOOD SPECIMENOrdering Facility: [facility] Address: [address] [place] [address] Performed By: #### A LLBG ####[facility] LABCLIA [id number] [place] [address] [place] Oxyhemoglobin (BldA) [Mass fraction] 97 % Normal 95-98 [facility] Comment on above: Order Comment: Speci men Type: ARTERIAL BLOOD SPECIMENOrdering Facility: [facility] Address: [address] [place] [address] Performed By: #### A LLBG ####[facility] LABCLIA [id number] [place] [id number] [place] pH (Bld) 7.32 [pH] Low 7.35-7.45 [facility] Comment on above: Order Comment: Speci men Type: ARTERIAL BLOOD SPECIMENOrdering Facility: [facility] Address: [address] [place] [address] Performed By: #### A LLBG ####[facility] LABCLIA [id number] [place] [address] [place] Potassium [Moles/Vol] 4.2 mmol/L Normal 3.5-5.0 [facility] Comment on above: Order Comment: Speci men Type: ARTERIAL BLOOD SPECIMENOrdering Facility: [facility] Address: [address] [place] [address] Performed By: #### A LLBG ####[facility] LABCLIA [id number] [place] [address] [place] Sodium [Moles/Vol] 139 mmol/L Normal 136-144 [facility] Comment on above: Order Comment: Speci men Type: ARTERIAL BLOOD SPECIMENOrdering Facility: [facility] Address: [address] [place] [address] Performed By: #### A LLBG ####[facility] LABCLIA [id number] [place] [address] [place] Base deficit (BldA) [Moles/Vol] -1 mmol/L Normal -2-0 [facility] Comment on above: Order Comment: Speci men Type: ARTERIAL BLOOD SPECIMENOrdering Facility: [facility] Address: [address] [place] [address] Performed By: #### A LLBG ####[facility] LABIA [id number] [place] [address] [place] Calcium.ionized (Bld) [Mass/Vol] 1.23 mmol/L Normal 1.08-1.30 [facility] Comment on above: Order Comment: Speci men Type: ARTERIAL BLOOD SPECIMENOrdering Facility: [facility] Address: [address] [place] [address] Performed By: #### A LLBG ####[facility] LABCLIA [id number] [place] [address] [place] Calcium.ionized adjusted to pH 7.4 (BldA) [Moles/Vol] 1.21 mmol/L Normal 1.08-1.30 [facility] Comment on above: Order Comment: Speci men Type: ARTERIAL BLOOD SPECIMENOrdering Facility: [facility] Address: [address] [place] [address] Performed By: #### A LLBG ####[facility] LABIA [id number] [place] [address] [place] Carboxyhemoglobin (BldA) [Mass fraction] 1.9 % Normal 0.0-2.0 [facility] Comment on above: Order Comment: Speci men Type: ARTERIAL BLOOD SPECIMENOrdering Facility: [facility] Address: [address] [place] [address] Result Comment: Carb oxyhemoglobin Reference Range for Smokers: 2.0-8.0% Performed By: #### A LLBG ####[facility] LABIA [id number] [place] [address] [place] CO2 (Bld) [Partial pressure] 43 mm Hg Normal 36-46 [facility] Comment on above: Order Comment: Speci men Type: ARTERIAL BLOOD SPECIMENOrdering Facility: [facility] Address: [address] [place] [address] Performed By: #### A LLBG ####[facility] LABCLIA [id number] [place] [address] [place] CO2 adjusted to patient's actual temperature (Bld) [Partial pressure] 43 mmHg Normal 36-46 [facility] Comment on above: Order Comment: Speci men Type: ARTERIAL BLOOD SPECIMENOrdering Facility: [facility] Address: [address] [place] [address] Performed By: #### A LLBG ####[facility] LABCLIA [id number] [place] [address] [place] Glucose [Mass/Vol] 133 mg/dL High 60-105 [facility] Comment on above: Order Comment: Speci men Type: ARTERIAL BLOOD SPECIMENOrdering Facility: [facility] Address: [address] [place] [address] Performed By: #### A LLBG ####[facility] LABCLIA [id number] [place] [address] [place] HCO3 (Bld) [Moles/Vol] 24 mmol/L Normal 22-26 [facility] Comment on above: Order Comment: Speci men Type: ARTERIAL BLOOD SPECIMENOrdering Facility: [facility] Address: [address] [place] [address] Performed By: #### A LLBG ####[facility] LABCLIA [id number] [place] [address] [place] Hematocrit (Bld) [Volume fraction] 36.4 % Low 39.0-51.0 [facility] Comment on above: Order Comment: Speci men Type: ARTERIAL BLOOD SPECIMENOrdering Facility: [facility] Address: [address] [place] [address] Performed By: #### A LLBG ####[facility] LABCLIA [id number] [place] [address] [place] Hemoglobin (Bld) [Mass/Vol] 11.8 g/dL Low 13.0-17.0 [facility] Comment on above: Order Comment: Speci men Type: ARTERIAL BLOOD SPECIMENOrdering Facility: [facility] Address: [address] [place] [address] Performed By: #### A LLBG ####[facility] LABCLIA [id number] [place] [address] [place] Lactate [Moles/Vol] 2.4 mmol/L High 0.5-2.2 [facility] Comment on above: Order Comment: Speci men Type: ARTERIAL BLOOD SPECIMENOrdering Facility: [facility] Address: [address] [place] [address] Performed By: #### A LLBG ####[facility] LABCLIA [id number] [address] [address] [place] Methemoglobin (Bld) [Mass fraction] 1.0 % Normal 0.0-1.5 [facility] Comment on above: Order Comment: Speci men Type: ARTERIAL BLOOD SPECIMENOrdering Facility: [facility] Address: [address] [place] [id number] Performed By: #### A LLBG ####[facility] LABCLIA [id number] [place] [address] [place] Oxygen (Bld) [Partial pressure] 246 mm Hg High 85-95 [facility] Comment on above: Order Comment: Speci men Type: ARTERIAL BLOOD SPECIMENOrdering Facility: [facility] Address: [address] [id number] Performed By: #### A LLBG ####[facility] LABCLIA [id number] [place] [address] [place] Oxygen adjusted to patient's actual temperature (Bld) [Partial pressure] 246 mmHg High 85-95 [facility] Comment on above: Order Comment: Speci men Type: ARTERIAL BLOOD SPECIMENOrdering Facility: [facility] Address: [address] [id number] Performed By: #### A LLBG ####[facility] LABCLIA [id number] [address] [address] [place] Oxyhemoglobin (BldA) [Mass fraction] 97 % Normal 95-98 [facility] Comment on above: Order Comment: Speci men Type: ARTERIAL BLOOD SPECIMENOrdering Facility: [facility] Address: [address] [id number] Performed By: #### A LLBG ####[facility] LABCLIA [id number] [place] [address] [place] pH (Bld) 7.36 [pH] Normal 7.35-7.45 [facility] Comment on above: Order Comment: Speci men Type: ARTERIAL BLOOD SPECIMENOrdering Facility: [facility] Address: [address] [place] [address] Performed By: #### A LLBG ####[facility] LABCLIA [id number] [place] [address] [place] pH adjusted to patient's actual temperature (Bld) 7.36 Normal 7.35-7.45 [facility] Comment on above: Order Comment: Speci men Type: ARTERIAL BLOOD SPECIMENOrdering Facility: [facility] Address: [address] [place] [address] Performed By: #### A LLBG ####[facility] LABIA [id number] [place] [address] [place] Potassium [Moles/Vol] 4.6 mmol/L Normal 3.5-5.0 [facility] Comment on above: Order Comment: Speci men Type: ARTERIAL BLOOD SPECIMENOrdering Facility: [facility] Address: [address] [place] [address] Performed By: #### A LLBG ####[facility] LABIA [id number] [place] [address] [place] Sodium [Moles/Vol] 140 mmol/L Normal 136-144 [facility] Comment on above: Order Comment: Speci men Type: ARTERIAL BLOOD SPECIMENOrdering Facility: [facility] Address: [address] [place] [address] Performed By: #### A LLBG ####[facility] LABCLIA [id number] [place] [address] [place] Base deficit (BldA) [Moles/Vol] -1 mmol/L Normal -2-0 [facility] Comment on above: Order Comment: Speci men Type: ARTERIAL BLOOD SPECIMENOrdering Facility: [facility] Address: [address] [place] [address] Performed By: #### A LLBG ####[facility] LABIA [id number] [place] [address] [place] Calcium.ionized (Bld) [Mass/Vol] 1.17 mmol/L Normal 1.08-1.30 [facility] Comment on above: Order Comment: Speci men Type: ARTERIAL BLOOD SPECIMENOrdering Facility: [facility] Address: [address] [place] [address] Performed By: #### A LLBG ####[facility] LABIA [id number] [place] [address] [place] ANDRES Calcium.ionized adjusted to pH 7.4 (BldA) [Moles/Vol] 1.16 mmol/L Normal 1.08-1.30 [facility] Comment on above: Order Comment: Speci men Type: ARTERIAL BLOOD SPECIMENOrdering Facility: [facility] Address: [address] [place] [address] Performed By: #### A LLBG ####[facility] LABIA [id number] [place] [address] [place] Carboxyhemoglobin (BldA) [Mass fraction] 1.6 % Normal 0.0-2.0 [facility] Comment on above: Order Comment: Speci men Type: ARTERIAL BLOOD SPECIMENOrdering Facility: [facility] Address: [address] [place] [address] Result Comment: Carb oxyhemoglobin Reference Range for Smokers: 2.0-8.0% Performed By: #### A LLBG ####[facility] LABIA [id number] [place] [address] [place] CO2 (Bld) [Partial pressure] 41 mm Hg Normal 36-46 [facility] Comment on above: Order Comment: Speci men Type: ARTERIAL BLOOD SPECIMENOrdering Facility: [facility] Address: [address] [place] [address] Performed By: #### A LLBG ####[facility] LABCLIA [id number] [place] [address] [place] CO2 adjusted to patient's actual temperature (Bld) [Partial pressure] 41 mmHg Normal 36-46 [facility] Comment on above: Order Comment: Speci men Type: ARTERIAL BLOOD SPECIMENOrdering Facility: [facility] Address: [address] [place] [address] Performed By: #### A LLBG ####[facility] LABCLIA [id number] [place] [address] [place] Glucose [Mass/Vol] 158 mg/dL High 60-105 [facility] Comment on above: Order Comment: Speci men Type: ARTERIAL BLOOD SPECIMENOrdering Facility: [facility] Address: [address] [place] [address] Performed By: #### A LLBG ####[facility] LABCLIA [id number] [place] [address] [place] HCO3 (Bld) [Moles/Vol] 24 mmol/L Normal 22-26 [facility] Comment on above: Order Comment: Speci men Type: ARTERIAL BLOOD SPECIMENOrdering Facility: [facility] Address: [address] [place] [address] Performed By: #### A LLBG ####[facility] LABCLIA [id number] [place] [address] [place] Hematocrit (Bld) [Volume fraction] 31.8 % Low 39.0-51.0 [facility] Comment on above: Order Comment: Speci men Type: ARTERIAL BLOOD SPECIMENOrdering Facility: [facility] Address: [address] [place] [address] Performed By: #### A LLBG ####[facility] LABCLIA [id number] [place] [address] [place] Hemoglobin (Bld) [Mass/Vol] 10.3 g/dL Low 13.0-17.0 [facility] Comment on above: Order Comment: Speci men Type: ARTERIAL BLOOD SPECIMENOrdering Facility: [facility] Address: [address] [place] [address] Performed By: #### A LLBG ####[facility] LABCLIA [id number] [place] [address] [place] Lactate [Moles/Vol] 2.8 mmol/L High 0.5-2.2 [facility] Comment on above: Order Comment: Speci men Type: ARTERIAL BLOOD SPECIMENOrdering Facility: [facility] Address: [address] [place] [address] Performed By: #### A LLBG ####[facility] LABCLIA [id number] [address] [place] Methemoglobin (Bld) [Mass fraction] 0.9 % Normal 0.0-1.5 [facility] Comment on above: Order Comment: Speci men Type: ARTERIAL BLOOD SPECIMENOrdering Facility: [facility] Address: [address] [place] [address] Performed By: #### A LLBG ####[facility] LABCLIA [id number] [place] [id number] [place] Oxygen (Bld) [Partial pressure] 277 mm Hg High 85-95 [facility] Comment on above: Order Comment: Speci men Type: ARTERIAL BLOOD SPECIMENOrdering Facility: [facility] Address: [address] [place] [address] Performed By: #### A LLBG ####[facility] LABCLIA [id number] [place] [address] [place] Oxygen adjusted to patient's actual temperature (Bld) [Partial pressure] 277 mmHg High 85-95 [facility] Comment on above: Order Comment: Speci men Type: ARTERIAL BLOOD SPECIMENOrdering Facility: [facility] Address: [address] [place] [address] Performed By: #### A LLBG ####[facility] LABCLIA [id number] [place] [address] [place] Oxyhemoglobin (BldA) [Mass fraction] 98 % Normal 95-98 [facility] Comment on above: Order Comment: Speci men Type: ARTERIAL BLOOD SPECIMENOrdering Facility: [facility] Address: [address] [place] [address] Performed By: #### A LLBG ####[facility] LABIA [id number] [place] [address] [place] pH (Bld) 7.38 [pH] Normal 7.35-7.45 [facility] Comment on above: Order Comment: Speci men Type: ARTERIAL BLOOD SPECIMENOrdering Facility: [facility] Address: [address] [place] [address] Performed By: #### A LLBG ####[facility] LABIA [id number] [place] [address] [place] pH adjusted to patient's actual temperature (Bld) 7.38 Normal 7.35-7.45 [facility] Comment on above: Order Comment: Speci men Type: ARTERIAL BLOOD SPECIMENOrdering Facility: [facility] Address: [address] [place] [address] Performed By: #### A LLBG ####[facility] LABIA [id number] [place] [address] [place] Potassium [Moles/Vol] 4.9 mmol/L Normal 3.5-5.0 [facility] Comment on above: Order Comment: Speci men Type: ARTERIAL BLOOD SPECIMENOrdering Facility: [facility] Address: [address] [place] [address] Performed By: #### A LLBG ####[facility] LABIA [id number] [place] [id number] [place] Sodium [Moles/Vol] 137 mmol/L Normal 136-144 [facility] Comment on above: Order Comment: Speci men Type: ARTERIAL BLOOD SPECIMENOrdering Facility: [facility] Address: [address] [place] [address] Performed By: #### A LLBG ####[facility] LABIA [id number] [place] [address] [place] Base excess Calc (Bld) [Moles/Vol] 0 mmol/L Normal 0-2 [facility] Comment on above: Order Comment: Speci men Type: ARTERIAL BLOOD SPECIMENOrdering Facility: [facility] Address: [address] [place] [address] Performed By: #### A LLBG ####[facility] LABIA [id number] [place] [address] [place] Calcium.ionized (Bld) [Mass/Vol] 1.27 mmol/L Normal 1.08-1.30 [facility] Comment on above: Order Comment: Speci men Type: ARTERIAL BLOOD SPECIMENOrdering Facility: [facility] Address: [address] [place] [address] Performed By: #### A LLBG ####[facility] LABIA [id number] [place] [address] [place] Calcium.ionized adjusted to pH 7.4 (BldA) [Moles/Vol] 1.24 mmol/L Normal 1.08-1.30 [facility] Comment on above: Order Comment: Speci men Type: ARTERIAL BLOOD SPECIMENOrdering Facility: [facility] Address: [address] [place] [address] Performed By: #### A LLBG ####[facility] LABIA [id number] [place] [address] [place] Carboxyhemoglobin (BldA) [Mass fraction] 1.8 % Normal 0.0-2.0 [facility] Comment on above: Order Comment: Speci men Type: ARTERIAL BLOOD SPECIMENOrdering Facility: [facility] Address: [address] [place] [address] Result Comment: Carb oxyhemoglobin Reference Range for Smokers: 2.0-8.0% Performed By: #### A LLBG ####[facility] LABCLIA [id number] [place] [address] [place] CO2 (Bld) [Partial pressure] 47 mm Hg High 36-46 [facility] Comment on above: Order Comment: Speci men Type: ARTERIAL BLOOD SPECIMENOrdering Facility: [facility] Address: [address] [place] [address] Performed By: #### A LLBG ####[facility] LABCLIA [id number] [place] [address] [place] CO2 adjusted to patient's actual temperature (Bld) [Partial pressure] 47 mmHg High 36-46 [facility] Comment on above: Order Comment: Speci men Type: ARTERIAL BLOOD SPECIMENOrdering Facility: [facility] Address: [address] [place] [address] Performed By: #### A LLBG ####[facility] LABCLIA [id number] [place] [address] [place] Glucose [Mass/Vol] 107 mg/dL High 60-105 [facility] Comment on above: Order Comment: Speci men Type: ARTERIAL BLOOD SPECIMENOrdering Facility: [facility] Address: [address] [place] [address] Performed By: #### A LLBG ####[facility] LABCLIA [id number] [place] [address] [place] HCO3 (Bld) [Moles/Vol] 26 mmol/L Normal 22-26 [facility] Comment on above: Order Comment: Speci men Type: ARTERIAL BLOOD SPECIMENOrdering Facility: [facility] Address: [address] [place] [address] Performed By: #### A LLBG ####[facility] LABCLIA [id number] [place] [address] [place] Hematocrit (Bld) [Volume fraction] 37.6 % Low 39.0-51.0 [facility] Comment on above: Order Comment: Speci men Type: ARTERIAL BLOOD SPECIMENOrdering Facility: [facility] Address: [address] [place] [address] Performed By: #### A LLBG ####[facility] LABIA [id number] [place] [address] [place] Hemoglobin (Bld) [Mass/Vol] 12.2 g/dL Low 13.0-17.0 [facility] Comment on above: Order Comment: Speci men Type: ARTERIAL BLOOD SPECIMENOrdering Facility: [facility] Address: [address] [place] [address] Performed By: #### A LLBG ####[facility] LABIA [id number] [place] [address] [place] Lactate [Moles/Vol] 1.8 mmol/L Normal 0.5-2.2 [facility] Comment on above: Order Comment: Speci men Type: ARTERIAL BLOOD SPECIMENOrdering Facility: [facility] Address: [address] [place] [address] Performed By: #### A LLBG ####[facility] LABIA [id number] [place] [address] [place] Methemoglobin (Bld) [Mass fraction] 0.7 % Normal 0.0-1.5 [facility] Comment on above: Order Comment: Speci men Type: ARTERIAL BLOOD SPECIMENOrdering Facility: [facility] Address: [address] [place] [address] Performed By: #### A LLBG ####[facility] LABIA [id number] [place] [address] [place] Oxygen (Bld) [Partial pressure] 121 mm Hg High 85-95 [facility] Comment on above: Order Comment: Speci men Type: ARTERIAL BLOOD SPECIMENOrdering Facility: [facility] Address: [address] [place] [address] Performed By: #### A LLBG ####[facility] LABCLIA [id number] [address] [address] [place] Oxygen adjusted to patient's actual temperature (Bld) [Partial pressure] 121 mmHg High 85-95 [facility] Comment on above: Order Comment: Speci men Type: ARTERIAL BLOOD SPECIMENOrdering Facility: [facility] Address: [address] [place] [address] Performed By: #### A LLBG ####[facility] LABCLIA [id number] [place] [address] [place] Oxyhemoglobin (BldA) [Mass fraction] 97 % Normal 95-98 [facility] Comment on above: Order Comment: Speci men Type: ARTERIAL BLOOD SPECIMENOrdering Facility: [facility] Address: [address] [place] [address] Performed By: #### A LLBG ####[facility] LABCLIA [id number] [place] [address] [place] pH (Bld) 7.35 [pH] Normal 7.35-7.45 [facility] Comment on above: Order Comment: Speci men Type: ARTERIAL BLOOD SPECIMENOrdering Facility: [facility] Address: [address] [place] [address] Performed By: #### A LLBG ####[facility] LABCLIA [id number] [place] [address] [place] pH adjusted to patient's actual temperature (Bld) 7.35 Normal 7.35-7.45 [facility] Comment on above: Order Comment: Speci men Type: ARTERIAL BLOOD SPECIMENOrdering Facility: [facility] Address: [address] [place] [address] Performed By: #### A LLBG ####[facility] LABCLIA [id number] [place] [address] [place] Potassium [Moles/Vol] 4.3 mmol/L Normal 3.5-5.0 [facility] Comment on above: Order Comment: Speci men Type: ARTERIAL BLOOD SPECIMENOrdering Facility: [facility] Address: [address] [place] [address] Performed By: #### A LLBG ####[facility] LABCLIA [id number] [place] [address] [place] Sodium [Moles/Vol] 141 mmol/L Normal 136-144 [facility] Comment on above: Order Comment: Speci men Type: ARTERIAL BLOOD SPECIMENOrdering Facility: [facility] Address: [address] [place] [address] Performed By: #### A LLBG ####[facility] LABIA [id number] [place] [address] [place] ARTERIAL BLOOD GASES WITH IO NIZED MAGNESIUMon 01-23-2024 Base deficit (BldA) [Moles/Vol] -1 mmol/L Normal -2-0 [facility] Comment on above: Order Comment: Speci men Type: ARTERIAL BLOOD SPECIMENOrdering Facility: [facility] Address: [address] [place] [address] Performed By: #### A LLMG ####[facility] LABIA [id number] [place] [address] [place] Calcium.ionized (Bld) [Mass/Vol] 1.22 mmol/L Normal 1.08-1.30 [facility] Comment on above: Order Comment: Speci men Type: ARTERIAL BLOOD SPECIMENOrdering Facility: [facility] Address: [address] [place] [address] Performed By: #### A LLMG ####[facility] LABIA [id number] [place] [address] [place] Calcium.ionized adjusted to pH 7.4 (BldA) [Moles/Vol] 1.19 mmol/L Normal 1.08-1.30 [facility] Comment on above: Order Comment: Speci men Type: ARTERIAL BLOOD SPECIMENOrdering Facility: [facility] Address: [address] [place] [address] Performed By: #### A LLMG ####[facility] LABCLIA [id number] [place] [address] [place] Carboxyhemoglobin (BldA) [Mass fraction] 1.7 % Normal 0.0-2.0 [facility] Comment on above: Order Comment: Speci men Type: ARTERIAL BLOOD SPECIMENOrdering Facility: [facility] Address: [address] [place] [address] Result Comment: Carb oxyhemoglobin Reference Range for Smokers: 2.0-8.0% Performed By: #### A LLMG ####[facility] LABCLIA [id number] [place] [address] [place] CO2 (Bld) [Partial pressure] 46 mm Hg Normal 36-46 [facility] Comment on above: Order Comment: Speci men Type: ARTERIAL BLOOD SPECIMENOrdering Facility: [facility] Address: [address] [place] [address] Performed By: #### A LLMG ####[facility] LABCLIA [id number] [place] [address] [place] CO2 adjusted to patient's actual temperature (Bld) [Partial pressure] 46 mmHg Normal 36-46 [facility] Comment on above: Order Comment: Speci men Type: ARTERIAL BLOOD SPECIMENOrdering Facility: [facility] Address: [address] [place] [address] Performed By: #### A LLMG ####[facility] LABCLIA [id number] [place] [address] [place] HCO3 (Bld) [Moles/Vol] 25 mmol/L Normal 22-26 [facility] Comment on above: Order Comment: Speci men Type: ARTERIAL BLOOD SPECIMENOrdering Facility: [facility] Address: [address] [place] [address] Performed By: #### A LLMG ####[facility] LABIA [id number] [place] [address] [place] Hematocrit (Bld) [Volume fraction] 33.9 % Low 39.0-51.0 [facility] Comment on above: Order Comment: Speci men Type: ARTERIAL BLOOD SPECIMENOrdering Facility: [facility] Address: [address] [place] [address] Performed By: #### A LLMG ####[facility] LABIA [id number] [place] [address] [place] Hemoglobin (Bld) [Mass/Vol] 11.0 g/dL Low 13.0-17.0 [facility] Comment on above: Order Comment: Speci men Type: ARTERIAL BLOOD SPECIMENOrdering Facility: [facility] Address: [address] [place] [address] Performed By: #### A LLMG ####[facility] LABIA [id number] [place] [address] [place] Lactate [Moles/Vol] 2.3 mmol/L High 0.5-2.2 [facility] Comment on above: Order Comment: Speci men Type: ARTERIAL BLOOD SPECIMENOrdering Facility: [facility] Address: [address] [place] [address] Performed By: #### A LLMG ####[facility] LABIA [id number] [place] [address] [place] Magnesium [Moles/Vol] 0.63 mmol/L High 0.45-0.60 [facility] Comment on above: Order Comment: Speci men Type: ARTERIAL BLOOD SPECIMENOrdering Facility: [facility] Address: [address] [place] [address] Performed By: #### A LLMG ####[facility] LABCLIA [id number] [place] [address] [place] Methemoglobin (Bld) [Mass fraction] 0.7 % Normal 0.0-1.5 [facility] Comment on above: Order Comment: Speci men Type: ARTERIAL BLOOD SPECIMENOrdering Facility: [facility] Address: [address] [place] [address] Performed By: #### A LLMG ####[facility] LABCLIA [id number] [place] [address] [place] Oxygen (Bld) [Partial pressure] 322 mm Hg High 85-95 [facility] Comment on above: Order Comment: Speci men Type: ARTERIAL BLOOD SPECIMENOrdering Facility: [facility] Address: [address] [place] [address] Performed By: #### A LLMG ####[facility] LABCLIA [id number] [place] [address] [place] Oxygen adjusted to patient's actual temperature (Bld) [Partial pressure] 322 mmHg High 85-95 [facility] Comment on above: Order Comment: Speci men Type: ARTERIAL BLOOD SPECIMENOrdering Facility: [facility] Address: [address] [place] [address] Performed By: #### A LLMG ####[facility] LABCLIA [id number] [place] [id number] [place] Oxyhemoglobin (BldA) [Mass fraction] 98 % Normal 95-98 [facility] Comment on above: Order Comment: Speci men Type: ARTERIAL BLOOD SPECIMENOrdering Facility: [facility] Address: [address] [place] [address] Performed By: #### A LLMG ####[facility] LABCLIA [id number] [place] [id number] [place] pH (Bld) 7.35 [pH] Normal 7.35-7.45 [facility] Comment on above: Order Comment: Speci men Type: ARTERIAL BLOOD SPECIMENOrdering Facility: [facility] Address: [address] [place] [address] Performed By: #### A LLMG ####[facility] LABCLIA [id number] [place] [address] [place] pH adjusted to patient's actual temperature (Bld) 7.35 Normal 7.35-7.45 [facility] Comment on above: Order Comment: Speci men Type: ARTERIAL BLOOD SPECIMENOrdering Facility: [facility] Address: [address] [place] [address] Performed By: #### A LLMG ####[facility] LABCLIA [id number] [place] [address] [place] CARDIAC IMPLANTABLE DEVICE C HECKOrdered By: Kristofer Light on 01-23-2024 Battery Remaining Longevity 11.0 [facility] Work Phone: Battery Status KEVIN [facility] Work Phone: David Setting AT Mode Switch Rate 170 [facility] Work Phone: David Setting Lower Rate Limit 90 [facility] Work Phone: David Setting Maximum Sensor Rate 115 [facility] Work Phone: David Setting Maximum Tracking Rate 130 [facility] Work Phone: Daivd Setting Mode (NBG Code) DDDR [facility] Work Phone: David Setting PAV Delay [address] [facility] Work Phone: David Setting NORIS Delay [address] [facility] Work Phone: Date Time Interrogation Session [facility] Work Phone: Implantable Lead Location Right Ventricle [facility] Work Phone: Implantable Lead Location Right Atrium [facility] Work Phone: Implantable Lead Model 7742 Cl [facility] Work Phone: Implantable Lead Model 7741 Cl [facility] Work Phone: Implantable Lead Serial Number [id number] [facility] Work Phone: Implantable Lead Serial Number [id number] [facility] Work Phone: Implantable Pulse Generator Implant Date [id number] [facility] Work Phone: Implantable Pulse Generator Curatorial Assistant Populr [facility] Work Phone: Implantable Pulse Generator Model L111 [facility] Work Phone: Implantable Pulse Generator Serial Number [id number] [facility] Work Phone: Implantable Pulse Generator Type Pacemaker [facility] Work Phone: Lead Channel Impedance Value 594 [facility] Work Phone: Lead Channel Impedance Value 598 [facility] Work Phone: Lead Channel Pacing Threshold Amplitude 1.300 [facility] Work Phone: Lead Channel Pacing Threshold Amplitude 1.400 [facility] Work Phone: Lead Channel Pacing Threshold Pulse Width 0.9 [facility] Work Phone: Lead Channel Pacing Threshold Pulse Width 0.4 [facility] Work Phone: Lead Channel Sensing Intrinsic Amplitude 1.100 [facility] Work Phone: Lead Channel Sensing Intrinsic Amplitude 8.100 [facility] Work Phone: Lead Channel Setting Pacing Amplitude 3.000 [facility] Work Phone: Lead Channel Setting Pacing Amplitude 2.800 [facility] Work Phone: Lead Channel Setting Pacing Pulse Width 0.9 [facility] Work Phone: Lead Channel Setting Pacing Pulse Width 0.4 [facility] Work Phone: Lead Channel Setting Sensing Sensitivity 0.25 [facility] Work Phone: Lead Channel Setting Sensing Sensitivity 2.50 [facility] Work Phone: Rate 1 185 [facility] Work Phone: Zone ID 1 [facility] Work Phone: Zone ID 2 [facility] Work Phone: Zone ID 3 [facility] Work Phone: Zone Setting Type Category VF [facility] Work Phone: Zone Setting Type Category VT [facility] Work Phone: Zone Setting Type Category VT1 [facility] Work Phone: [facility] Work Phone: CARDIAC IMPLANTABLE DEVICE C Marielos 01-23-2024 Title: Hospital Che k * Patient was seen in hospital Post [...] data. Full Docket/PDF found below under Scanned Documents. [facility]IAC Kristofer Light MD - 01/23/2024 Title: Hospital Check * [...] data. Full Docket/PDF found below under Scanned Documents. [facility] CASE MGT INIT ASSESon 2023 CASE MGT INIT ASSES Normal [facility] ECG COMPLETEon 01-23-2024 ECG COMPLETE Normal [facility] Fibrinogen PPP-mCncon 2023 Fibrinogen Coag (PPP) [Mass/Vol] 265 mg/dL Normal 200-400 [facility] Comment on above: Order Comment: Speci men Type: BLOOD SPECIMENOrdering Facility: [facility] Address: [address] [place] [address] Performed By: #### 3 255-7 ####[facility] LABCLIA [id number] [place] [address] [place] Gas + CO Pnl BldVon 01-23-20 24 Body temperature 102.38 [degF] Normal [facility] Comment on above: Order Comment: Speci men Type: VENOUS BLOOD SPECIMENOrdering Facility: [facility] Address: [address] [place] [address] Performed By: #### 2 4344-4 ####[facility] LABCLIA [id number] [place] [address] [place] Order Comment: Speci men Type: ARTERIAL BLOOD SPECIMENOrdering Facility: [facility] Address: [address] [place] [address] Performed By: #### A LLBG ####[facility] LABCLIA [id number] [place] [address] [place] FIO2 30 % Normal [facility] Comment on above: Order Comment: Speci men Type: VENOUS BLOOD SPECIMENOrdering Facility: [facility] Address: [address] [id number] Performed By: #### 2 4344-4 ####[facility] LABCLIA [id number] [address] [place] Order Comment: Speci men Type: ARTERIAL BLOOD SPECIMENOrdering Facility: [facility] Address: [address] [id number] Performed By: #### A LLBG ####[facility] LABCLIA [id number] [place] [address] [place] HCO3 (Bld) [Moles/Vol] 23 mmol/L Normal 22-26 [facility] Comment on above: Order Comment: Speci men Type: VENOUS BLOOD SPECIMENOrdering Facility: [facility] Address: [address] [place] [address] Performed By: #### 2 4344-4 ####[facility] LABCLIA [id number] [address] [place] Order Comment: Speci men Type: ARTERIAL BLOOD SPECIMENOrdering Facility: [facility] Address: [address] [place] [address] Performed By: #### A LLBG ####[facility] LABCLIA [id number] [place] [address] [place] O2 THERAPY VENT=Ventilator Normal [facility] Comment on above: Order Comment: Speci men Type: VENOUS BLOOD SPECIMENOrdering Facility: [facility] Address: [address] [id number] Performed By: #### 2 4344-4 ####[facility] LABCLIA [id number] [place] [id number] [place] Order Comment: Speci men Type: ARTERIAL BLOOD SPECIMENOrdering Facility: [facility] Address: [address] [id number] Performed By: #### A LLBG ####[facility] LABCLIA [id number] [place] [id number] [place] PEEP/CPAP 8 cmH2O Normal [facility] Comment on above: Order Comment: Speci men Type: VENOUS BLOOD SPECIMENOrdering Facility: [facility] Address: [address] [place], [place] [address] Performed By: #### 2 4344-4 ####[facility] LABCLIA [id number] [place] [address] [place] Order Comment: Speci men Type: ARTERIAL BLOOD SPECIMENOrdering Facility: [facility] Address: [address] [place] [address] Performed By: #### A LLBG ####[facility] LABCLIA [id number] [address] [place] SET VENTILATOR RESPIRATORY RATE (BPM) 24 BPM Normal [facility] Comment on above: Order Comment: Speci men Type: VENOUS BLOOD SPECIMENOrdering Facility: [facility] Address: [address] [place], [place] [address] Performed By: #### 2 4344-4 ####[facility] LABCLIA [id number] [place] [address] [place] Order Comment: Speci men Type: ARTERIAL BLOOD SPECIMENOrdering Facility: [facility] Address: [address] [place], [place] [address] Performed By: #### A LLBG ####[facility] LABCLIA [id number] [place] [address] [place] Body temperature 101.66 [degF] Normal [facility] Comment on above: Order Comment: Speci men Type: VENOUS BLOOD SPECIMENOrdering Facility: [facility] Address: [address] [place], [place] [address] Performed By: #### 2 4344-4 ####[facility] LABCLIA [id number] [place] [address] [place] Order Comment: Speci men Type: ARTERIAL BLOOD SPECIMENOrdering Facility: [facility] Address: [address] [id number] Performed By: #### A LLBG ####[facility] LABCLIA [id number] [place] [address] [place] FIO2 30 % Normal [facility] Comment on above: Order Comment: Speci men Type: VENOUS BLOOD SPECIMENOrdering Facility: [facility] Address: [address] [place] [address] Performed By: #### 2 4344-4 ####[facility] LABCLIA [id number] [place] [address] [place] Order Comment: Speci men Type: ARTERIAL BLOOD SPECIMENOrdering Facility: [facility] Address: [address] [place] [address] Performed By: #### A LLBG ####[facility] LABCLIA [id number] [place] [address] [place] O2 THERAPY VENT=Ventilator Normal [facility] Comment on above: Order Comment: Speci men Type: VENOUS BLOOD SPECIMENOrdering Facility: [facility] Address: [address] [place], [place] [address] Performed By: #### 2 4344-4 ####[facility] LABCLIA [id number] [place] [address] [place] Order Comment: Speci men Type: ARTERIAL BLOOD SPECIMENOrdering Facility: [facility] Address: [address] [id number] Performed By: #### A LLBG ####[facility] LABCLIA [id number] [place] [address] [place] PEEP/CPAP 8 cmH2O Normal [facility] Comment on above: Order Comment: Speci men Type: VENOUS BLOOD SPECIMENOrdering Facility: [facility] Address: [address] [id number] Performed By: #### 2 4344-4 ####[facility] LABCLIA [id number] [address] [address] [place] Order Comment: Speci men Type: ARTERIAL BLOOD SPECIMENOrdering Facility: [facility] Address: [address] [place] [address] Performed By: #### A LLBG ####[facility] LABCLIA [id number] [place] [address] [place] Body temperature 100.76 [degF] Normal [facility] Comment on above: Order Comment: Speci men Type: VENOUS BLOOD SPECIMENOrdering Facility: [facility] Address: [address] [place] [address] Performed By: #### 2 4344-4 ####[facility] LABCLIA [id number] [place] [address] [place] Order Comment: Speci men Type: ARTERIAL BLOOD SPECIMENOrdering Facility: [facility] Address: [address] [place] [address] Performed By: #### A LLBG ####[facility] LABCLIA [id number] [place] [address] [place] FIO2 30 % Normal [facility] Comment on above: Order Comment: Speci men Type: VENOUS BLOOD SPECIMENOrdering Facility: [facility] Address: [address] [place] [address] Performed By: #### 2 4344-4 ####[facility] LABCLIA [id number] [place] [id number] [place] Order Comment: Speci men Type: ARTERIAL BLOOD SPECIMENOrdering Facility: [facility] Address: [address] [place] [address] Performed By: #### A LLBG ####[facility] LABCLIA [id number] [place] [id number] [place] O2 THERAPY VENT=Ventilator Normal [facility] Comment on above: Order Comment: Speci men Type: VENOUS BLOOD SPECIMENOrdering Facility: [facility] Address: [address] [place] [address] Performed By: #### 2 4344-4 ####[facility] LABCLIA [id number] [address] [address] [place] Order Comment: Speci men Type: ARTERIAL BLOOD SPECIMENOrdering Facility: [facility] Address: [address] [phone] Performed By: #### A LLBG ####[facility] LABCLIA [id number] [place] [id number] [place] PEEP/CPAP 8 cmH2O Normal [facility] Comment on above: Order Comment: Speci men Type: VENOUS BLOOD SPECIMENOrdering Facility: [facility] Address: [address] [place], [place] [address] Performed By: #### 2 4344-4 ####[facility] LABCLIA [id number] [address] [address] [place] Order Comment: Speci men Type: ARTERIAL BLOOD SPECIMENOrdering Facility: [facility] Address: [address] [id number] Performed By: #### A LLBG ####[facility] LABCLIA [id number] [place] [id number] [place] SET VENTILATOR RESPIRATORY RATE (BPM) 34 BPM Normal [facility] Comment on above: Order Comment: Speci men Type: VENOUS BLOOD SPECIMENOrdering Facility: [facility] Address: [address] [phone] Performed By: #### 2 4344-4 ####[facility] LABCLIA [id number] [place] [id number] [place] Order Comment: Speci men Type: ARTERIAL BLOOD SPECIMENOrdering Facility: [facility] Address: [address] [id number] Performed By: #### A LLBG ####[facility] LABCLIA [id number] [address] [address] [place] Gas and Carbon monoxide pane l (BldV)on 01-23-2024 BASE DEFICIT, VENOUS -2 mmol/L Normal -2-0 [facility] Comment on above: Order Comment: Speci men Type: VENOUS BLOOD SPECIMENOrdering Facility: [facility] Address: [address] [place] [address] Performed By: #### 2 4344-4 ####[facility] LABIA [id number] [place] [address] [place] Calcium.ionized (Bld) [Mass/Vol] 1.17 mmol/L Normal 1.08-1.30 [facility] Comment on above: Order Comment: Speci men Type: VENOUS BLOOD SPECIMENOrdering Facility: [facility] Address: [address] [place] [address] Performed By: #### 2 4344-4 ####[facility] LABIA [id number] [place] [address] [place] Calcium.ionized adjusted to pH 7.4 (BldA) [Moles/Vol] 1.15 mmol/L Normal 1.08-1.30 [facility] Comment on above: Order Comment: Speci men Type: VENOUS BLOOD SPECIMENOrdering Facility: [facility] Address: [address] [place] [address] Performed By: #### 2 4344-4 ####[facility] LABIA [id number] [address] [address] [place] Carboxyhemoglobin (BldV) [Mass fraction] 1.5 % Normal 0.0-2.0 [facility] Comment on above: Order Comment: Speci men Type: VENOUS BLOOD SPECIMENOrdering Facility: [facility] Address: [address] [place] [address] Result Comment: Carb oxyhemoglobin Reference Range for Smokers: 2.0-8.0% Performed By: #### 2 4344-4 ####[facility] LABCLIA [id number] [place] [address] [place] CO2 (BldV) [Partial pressure] 40 mm[Hg] Low 42-55 [facility] Comment on above: Order Comment: Speci men Type: VENOUS BLOOD SPECIMENOrdering Facility: [facility] Address: [address] [place] [address] Performed By: #### 2 4344-4 ####[facility] LABCLIA [id number] [place] [address] [place] CO2 adjusted to patient's actual temperature (BldV) [Partial pressure] 44 mmHg Normal 42-55 [facility] Comment on above: Order Comment: Speci men Type: VENOUS BLOOD SPECIMENOrdering Facility: [facility] Address: [address] [place] [address] Performed By: #### 2 4344-4 ####[facility] LABCLIA [id number] [place] [address] [place] Glucose [Mass/Vol] 125 mg/dL High 60-105 [facility] Comment on above: Order Comment: Speci men Type: VENOUS BLOOD SPECIMENOrdering Facility: [facility] Address: [address] [place] [address] Performed By: #### 2 4344-4 ####[facility] LABIA [id number] [place] [address] [place] Hematocrit (Bld) [Volume fraction] 33.1 % Low 39.0-51.0 [facility] Comment on above: Order Comment: Speci men Type: VENOUS BLOOD SPECIMENOrdering Facility: [facility] Address: [address] [place] [address] Performed By: #### 2 4344-4 ####[facility] LABCLIA [id number] [place] [address] [place] Hemoglobin (Bld) [Mass/Vol] 10.7 g/dL Low 13.0-17.0 [facility] Comment on above: Order Comment: Speci men Type: VENOUS BLOOD SPECIMENOrdering Facility: [facility] Address: [address] [place] [address] Performed By: #### 2 4344-4 ####[facility] LABCLIA [id number] [place] [address] [place] Lactate [Moles/Vol] 4.5 mmol/L High 0.5-2.2 [facility] Comment on above: Order Comment: Speci men Type: VENOUS BLOOD SPECIMENOrdering Facility: [facility] Address: [address] [place] [address] Performed By: #### 2 4344-4 ####[facility] LABCLIA [id number] [place] [address] [place] Methemoglobin (Bld) [Mass fraction] 0.7 % Normal 0.0-1.5 [facility] Comment on above: Order Comment: Speci men Type: VENOUS BLOOD SPECIMENOrdering Facility: [facility] Address: [address] [place] [address] Performed By: #### 2 4344-4 ####[facility] LABCLIA [id number] [place] [address] [place] Oxygen (BldV) [Partial pressure] 48 mm[Hg] High 35-45 [facility] Comment on above: Order Comment: Speci men Type: VENOUS BLOOD SPECIMENOrdering Facility: [facility] Address: [address] [place] [address] Performed By: #### 2 4344-4 ####[facility] LABCLIA [id number] [place] [address] [place] Oxygen adjusted to patient's actual temperature (BldV) [Partial pressure] 56 mmHg High 35-45 [facility] Comment on above: Order Comment: Speci men Type: VENOUS BLOOD SPECIMENOrdering Facility: [facility] Address: [address] [place] [address] Performed By: #### 2 4344-4 ####[facility] LABCLIA [id number] [address] [address] [place] Oxygen saturation in Venous blood 86 % High 60-85 [facility] Comment on above: Order Comment: Speci men Type: VENOUS BLOOD SPECIMENOrdering Facility: [facility] Address: [address] [place], [place] [address] Performed By: #### 2 4344-4 ####[facility] LABCLIA [id number] [address] [address] [place] Oxyhemoglobin (BldV) [Mass fraction] 84 % Normal 60-85 [facility] Comment on above: Order Comment: Speci men Type: VENOUS BLOOD SPECIMENOrdering Facility: [facility] Address: [address] [place] [address] Performed By: #### 2 4344-4 ####[facility] LABCLIA [id number] [place] [address] [place] pH (BldV) 7.38 [pH] Normal 7.32-7.42 [facility] Comment on above: Order Comment: Speci men Type: VENOUS BLOOD SPECIMENOrdering Facility: [facility] Address: [address] [place], [place] [address] Performed By: #### 2 4344-4 ####[facility] LABCLIA [id number] [place] [address] [place] pH adjusted to patient's actual temperature (BldV) 7.35 Normal 7.32-7.42 [facility] Comment on above: Order Comment: Speci men Type: VENOUS BLOOD SPECIMENOrdering Facility: [facility] Address: [address] [place], [place] [address] Performed By: #### 2 4344-4 ####[facility] LABCLIA [id number] [place] [address] [place] Potassium [Moles/Vol] 4.4 mmol/L Normal 3.5-5.0 [facility] Comment on above: Order Comment: Speci men Type: VENOUS BLOOD SPECIMENOrdering Facility: [facility] Address: [address] [place] [address] Performed By: #### 2 4344-4 ####[facility] LABCLIA [id number] [place] [address] [place] Sodium [Moles/Vol] 140 mmol/L Normal 136-144 [facility] Comment on above: Order Comment: Speci men Type: VENOUS BLOOD SPECIMENOrdering Facility: [facility] Address: [address] [place] [address] Performed By: #### 2 4344-4 ####[facility] LABCLIA [id number] [place] [address] [place] BASE DEFICIT, VENOUS -1 mmol/L Normal -2-0 [facility] Comment on above: Order Comment: Speci men Type: VENOUS BLOOD SPECIMENOrdering Facility: [facility] Address: [address] [place] [address] Performed By: #### 2 4344-4 ####[facility] LABCLIA [id number] [place] [address] [place] Calcium.ionized (Bld) [Mass/Vol] 1.23 mmol/L Normal 1.08-1.30 [facility] Comment on above: Order Comment: Speci men Type: VENOUS BLOOD SPECIMENOrdering Facility: [facility] Address: [address] [place] [address] Performed By: #### 2 4344-4 ####[facility] LABCLIA [id number] [place] [address] [place] Calcium.ionized adjusted to pH 7.4 (BldA) [Moles/Vol] 1.21 mmol/L Normal 1.08-1.30 [facility] Comment on above: Order Comment: Speci men Type: VENOUS BLOOD SPECIMENOrdering Facility: [facility] Address: [address] [id number] Performed By: #### 2 4344-4 ####[facility] LABCLIA [id number] [address] [address] [place] Carboxyhemoglobin (BldV) [Mass fraction] 1.5 % Normal 0.0-2.0 [facility] Comment on above: Order Comment: Speci men Type: VENOUS BLOOD SPECIMENOrdering Facility: [facility] Address: [address] [id number] Result Comment: Carb oxyhemoglobin Reference Range for Smokers: 2.0-8.0% Performed By: #### 2 4344-4 ####[facility] LABCLIA [id number] [address] [address] [place] CO2 (BldV) [Partial pressure] 40 mm[Hg] Low 42-55 [facility] Comment on above: Order Comment: Speci men Type: VENOUS BLOOD SPECIMENOrdering Facility: [facility] Address: [address] [place], [place] [address] Performed By: #### 2 4344-4 ####[facility] LABCLIA [id number] [address] [address] [place] CO2 adjusted to patient's actual temperature (BldV) [Partial pressure] 44 mmHg Normal 42-55 [facility] Comment on above: Order Comment: Speci men Type: VENOUS BLOOD SPECIMENOrdering Facility: [facility] Address: [address] [place], [place] [address] Performed By: #### 2 4344-4 ####[facility] LABCLIA [id number] [address] [address] [place] Glucose [Mass/Vol] 139 mg/dL High 60-105 [facility] Comment on above: Order Comment: Speci men Type: VENOUS BLOOD SPECIMENOrdering Facility: [facility] Address: [address] [place], [place] [address] Performed By: #### 2 4344-4 ####[facility] LABCLIA [id number] [place] [address] [place] HCO3 (Bld) [Moles/Vol] 23 mmol/L Low 24-28 [facility] Comment on above: Order Comment: Speci men Type: VENOUS BLOOD SPECIMENOrdering Facility: [facility] Address: [address] [place] [address] Performed By: #### 2 4344-4 ####[facility] LABCLIA [id number] [place] [address] [place] Hematocrit (Bld) [Volume fraction] 35.9 % Low 39.0-51.0 [facility] Comment on above: Order Comment: Speci men Type: VENOUS BLOOD SPECIMENOrdering Facility: [facility] Address: [address] [place] [address] Performed By: #### 2 4344-4 ####[facility] LABIA [id number] [place] [address] [place] Hemoglobin (Bld) [Mass/Vol] 11.7 g/dL Low 13.0-17.0 [facility] Comment on above: Order Comment: Speci men Type: VENOUS BLOOD SPECIMENOrdering Facility: [facility] Address: [address] [place] [address] Performed By: #### 2 4344-4 ####[facility] LABCLIA [id number] [place] [address] [place] Lactate [Moles/Vol] 5.3 mmol/L High 0.5-2.2 [facility] Comment on above: Order Comment: Speci men Type: VENOUS BLOOD SPECIMENOrdering Facility: [facility] Address: [address] [place] [address] Performed By: #### 2 4344-4 ####[facility] LABCLIA [id number] [address] [address] [place] Methemoglobin (Bld) [Mass fraction] 0.8 % Normal 0.0-1.5 [facility] Comment on above: Order Comment: Speci men Type: VENOUS BLOOD SPECIMENOrdering Facility: [facility] Address: [address] [id number] Performed By: #### 2 4344-4 ####[facility] LABCLIA [id number] [address] [address] [place] Oxygen (BldV) [Partial pressure] 46 mm[Hg] High 35-45 [facility] Comment on above: Order Comment: Speci men Type: VENOUS BLOOD SPECIMENOrdering Facility: [facility] Address: [address] [place], [place] [address] Performed By: #### 2 4344-4 ####[facility] LABCLIA [id number] [place] [address] [place] Oxygen adjusted to patient's actual temperature (BldV) [Partial pressure] 52 mmHg High 35-45 [facility] Comment on above: Order Comment: Speci men Type: VENOUS BLOOD SPECIMENOrdering Facility: [facility] Address: [address] [place], [place] [address] Performed By: #### 2 4344-4 ####[facility] LABCLIA [id number] [address] [address] [place] Oxygen saturation in Venous blood 83 % Normal 60-85 [facility] Comment on above: Order Comment: Speci men Type: VENOUS BLOOD SPECIMENOrdering Facility: [facility] Address: [address] [place] [address] Performed By: #### 2 4344-4 ####[facility] LABCLIA [id number] [address] [address] [place] Oxyhemoglobin (BldV) [Mass fraction] 81 % Normal 60-85 [facility] Comment on above: Order Comment: Speci men Type: VENOUS BLOOD SPECIMENOrdering Facility: [facility] Address: [address] [place] [address] Performed By: #### 2 4344-4 ####[facility] LABCLIA [id number] [place] [address] [place] pH (BldV) 7.38 [pH] Normal 7.32-7.42 [facility] Comment on above: Order Comment: Speci men Type: VENOUS BLOOD SPECIMENOrdering Facility: [facility] Address: [address] [place] [address] Performed By: #### 2 4344-4 ####[facility] LABCLIA [id number] [place] [address] [place] pH adjusted to patient's actual temperature (BldV) 7.36 Normal 7.32-7.42 [facility] Comment on above: Order Comment: Speci men Type: VENOUS BLOOD SPECIMENOrdering Facility: [facility] Address: [address] [place] [address] Performed By: #### 2 4344-4 ####[facility] LABCLIA [id number] [place] [address] [place] Potassium [Moles/Vol] 4.6 mmol/L Normal 3.5-5.0 [facility] Comment on above: Order Comment: Speci men Type: VENOUS BLOOD SPECIMENOrdering Facility: [facility] Address: [address] [place] [address] Performed By: #### 2 4344-4 ####[facility] LABCLIA [id number] [place] [address] [place] SET VENTILATOR RESPIRATORY RATE (BPM) 34 BPM Normal [facility] Comment on above: Order Comment: Speci men Type: VENOUS BLOOD SPECIMENOrdering Facility: [facility] Address: [address] [place] [address] Performed By: #### 2 4344-4 ####[facility] LABCLIA [id number] [place] [address] [place] Sodium [Moles/Vol] 140 mmol/L Normal 136-144 [facility] Comment on above: Order Comment: Speci men Type: VENOUS BLOOD SPECIMENOrdering Facility: [facility] Address: [address] [place] [address] Performed By: #### 2 4344-4 ####[facility] LABCLIA [id number] [place] [address] [place] BASE DEFICIT, VENOUS -3 mmol/L Low -2-0 [facility] Comment on above: Order Comment: Speci men Type: VENOUS BLOOD SPECIMENOrdering Facility: [facility] Address: [address] [place] [address] Performed By: #### 2 4344-4 ####[facility] LABCLIA [id number] [place] [address] [place] Calcium.ionized (Bld) [Mass/Vol] 1.18 mmol/L Normal 1.08-1.30 [facility] Comment on above: Order Comment: Speci men Type: VENOUS BLOOD SPECIMENOrdering Facility: [facility] Address: [address] [place] [address] Performed By: #### 2 4344-4 ####[facility] LABIA [id number] [place] [address] [place] Calcium.ionized adjusted to pH 7.4 (BldA) [Moles/Vol] 1.16 mmol/L Normal 1.08-1.30 [facility] Comment on above: Order Comment: Speci men Type: VENOUS BLOOD SPECIMENOrdering Facility: [facility] Address: [address] [place] [address] Performed By: #### 2 4344-4 ####[facility] LABCLIA [id number] [place] [address] [place] Carboxyhemoglobin (BldV) [Mass fraction] 1.4 % Normal 0.0-2.0 [facility] Comment on above: Order Comment: Speci men Type: VENOUS BLOOD SPECIMENOrdering Facility: [facility] Address: [address] [place] [address] Result Comment: Carb oxyhemoglobin Reference Range for Smokers: 2.0-8.0% Performed By: #### 2 4344-4 ####[facility] LABCLIA [id number] [place] [address] [place] CO2 (BldV) [Partial pressure] 39 mm[Hg] Low 42-55 [facility] Comment on above: Order Comment: Speci men Type: VENOUS BLOOD SPECIMENOrdering Facility: [facility] Address: [address] [place] [address] Performed By: #### 2 4344-4 ####[facility] LABCLIA [id number] [place] [address] [place] CO2 adjusted to patient's actual temperature (BldV) [Partial pressure] 41 mmHg Low 42-55 [facility] Comment on above: Order Comment: Speci men Type: VENOUS BLOOD SPECIMENOrdering Facility: [facility] Address: [address] [place] [address] Performed By: #### 2 4344-4 ####[facility] LABCLIA [id number] [place] [address] [place] Glucose [Mass/Vol] 140 mg/dL High 60-105 [facility] Comment on above: Order Comment: Speci men Type: VENOUS BLOOD SPECIMENOrdering Facility: [facility] Address: [address] [place] [address] Performed By: #### 2 4344-4 ####[facility] LABCLIA [id number] [place] [address] [place] HCO3 (Bld) [Moles/Vol] 22 mmol/L Low 24-28 [facility] Comment on above: Order Comment: Speci men Type: VENOUS BLOOD SPECIMENOrdering Facility: [facility] Address: [address] [place] [address] Performed By: #### 2 4344-4 ####[facility] LABCLIA [id number] [place] [address] [place] Hematocrit (Bld) [Volume fraction] 36.0 % Low 39.0-51.0 [facility] Comment on above: Order Comment: Speci men Type: VENOUS BLOOD SPECIMENOrdering Facility: [facility] Address: [address] [place] [address] Performed By: #### 2 4344-4 ####[facility] LABIA [id number] [place] [address] [place] Hemoglobin (Bld) [Mass/Vol] 11.7 g/dL Low 13.0-17.0 [facility] Comment on above: Order Comment: Speci men Type: VENOUS BLOOD SPECIMENOrdering Facility: [facility] Address: [address] [place] [address] Performed By: #### 2 4344-4 ####[facility] LABIA [id number] [place] [address] [place] Lactate [Moles/Vol] 6.9 mmol/L High 0.5-2.2 [facility] Comment on above: Order Comment: Speci men Type: VENOUS BLOOD SPECIMENOrdering Facility: [facility] Address: [address] [place] [address] Performed By: #### 2 4344-4 ####[facility] LABCLIA [id number] [place] [address] [place] Methemoglobin (Bld) [Mass fraction] 0.8 % Normal 0.0-1.5 [facility] Comment on above: Order Comment: Speci men Type: VENOUS BLOOD SPECIMENOrdering Facility: [facility] Address: [address] [place] [address] Performed By: #### 2 4344-4 ####[facility] LABCLIA [id number] [place] [address] [place] Oxygen (BldV) [Partial pressure] 45 mm[Hg] Normal 35-45 [facility] Comment on above: Order Comment: Speci men Type: VENOUS BLOOD SPECIMENOrdering Facility: [facility] Address: [address] [place], [place] [address] Performed By: #### 2 4344-4 ####[facility] LABCLIA [id number] [place] [address] [place] Oxygen adjusted to patient's actual temperature (BldV) [Partial pressure] 49 mmHg High 35-45 [facility] Comment on above: Order Comment: Speci men Type: VENOUS BLOOD SPECIMENOrdering Facility: [facility] Address: [address] [place] [address] Performed By: #### 2 4344-4 ####[facility] LABCLIA [id number] [place] [address] [place] Oxygen saturation in Venous blood 81 % Normal 60-85 [facility] Comment on above: Order Comment: Speci men Type: VENOUS BLOOD SPECIMENOrdering Facility: [facility] Address: [address] [place], [place] [address] Performed By: #### 2 4344-4 ####[facility] LABIA [id number] [place] [address] [place] Oxyhemoglobin (BldV) [Mass fraction] 79 % Normal 60-85 [facility] Comment on above: Order Comment: Speci men Type: VENOUS BLOOD SPECIMENOrdering Facility: [facility] Address: [address] [place] [address] Performed By: #### 2 4344-4 ####[facility] LABCLIA [id number] [address] [address] [place] pH (BldV) 7.37 [pH] Normal 7.32-7.42 [facility] Comment on above: Order Comment: Speci men Type: VENOUS BLOOD SPECIMENOrdering Facility: [facility] Address: [address] [place], [place] [address] Performed By: #### 2 4344-4 ####[facility] LABCLIA [id number] [place] [address] [place] pH adjusted to patient's actual temperature (BldV) 7.35 Normal 7.32-7.42 [facility] Comment on above: Order Comment: Speci men Type: VENOUS BLOOD SPECIMENOrdering Facility: [facility] Address: [address] [place], [place] [address] Performed By: #### 2 4344-4 ####[facility] LABCLIA [id number] [place] [address] [place] Potassium [Moles/Vol] 4.2 mmol/L Normal 3.5-5.0 [facility] Comment on above: Order Comment: Speci men Type: VENOUS BLOOD SPECIMENOrdering Facility: [facility] Address: [address] [place] [address] Performed By: #### 2 4344-4 ####[facility] LABCLIA [id number] [place] [address] [place] Sodium [Moles/Vol] 139 mmol/L Normal 136-144 [facility] Comment on above: Order Comment: Speci men Type: VENOUS BLOOD SPECIMENOrdering Facility: [facility] Address: [address] [place], [place] [address] Performed By: #### 2 4344-4 ####[facility] LABCLIA [id number] [address] [place] [id number] [place] BASE DEFICIT, VENOUS -4 mmol/L Low -2-0 [facility] Comment on above: Order Comment: Speci men Type: VENOUS BLOOD SPECIMENOrdering Facility: [facility] Address: [address] [place], [place] [address] Performed By: #### 2 4344-4 ####[facility] LABCLIA [id number] [place] [address] [place] Body temperature 99.14 [degF] Normal [facility] Comment on above: Order Comment: Speci men Type: VENOUS BLOOD SPECIMENOrdering Facility: [facility] Address: [address] [place] [address] Performed By: #### 2 4344-4 ####[facility] LABCLIA [id number] [place] [address] [place] Calcium.ionized (Bld) [Mass/Vol] 1.18 mmol/L Normal 1.08-1.30 [facility] Comment on above: Order Comment: Speci men Type: VENOUS BLOOD SPECIMENOrdering Facility: [facility] Address: [address] [place] [address] Performed By: #### 2 4344-4 ####[facility] LABIA [id number] [place] [address] [place] Calcium.ionized adjusted to pH 7.4 (BldA) [Moles/Vol] 1.15 mmol/L Normal 1.08-1.30 [facility] Comment on above: Order Comment: Speci men Type: VENOUS BLOOD SPECIMENOrdering Facility: [facility] Address: [address] [place] [address] Performed By: #### 2 4344-4 ####[facility] LABIA [id number] [place] [address] [place] Carboxyhemoglobin (BldV) [Mass fraction] 1.1 % Normal 0.0-2.0 [facility] Comment on above: Order Comment: Speci men Type: VENOUS BLOOD SPECIMENOrdering Facility: [facility] Address: [address] [place] [address] Performed By: #### 2 4344-4 ####[facility] LABIA [id number] [place] [address] [place] CO2 (BldV) [Partial pressure] 40 mm[Hg] Low 42-55 [facility] Comment on above: Order Comment: Speci men Type: VENOUS BLOOD SPECIMENOrdering Facility: [facility] Address: [address] [place] [address] Performed By: #### 2 4344-4 ####[facility] LABCLIA [id number] [address] [address] [place] CO2 adjusted to patient's actual temperature (BldV) [Partial pressure] 40 mmHg Low 42-55 [facility] Comment on above: Order Comment: Speci men Type: VENOUS BLOOD SPECIMENOrdering Facility: [facility] Address: [address] [place] [address] Performed By: #### 2 4344-4 ####[facility] LABCLIA [id number] [place] [address] [place] FIO2 40 % Normal [facility] Comment on above: Order Comment: Speci men Type: VENOUS BLOOD SPECIMENOrdering Facility: [facility] Address: [address] [place] [address] Performed By: #### 2 4344-4 ####[facility] LABCLIA [id number] [place] [address] [place] Glucose [Mass/Vol] 147 mg/dL High 60-105 [facility] Comment on above: Order Comment: Speci men Type: VENOUS BLOOD SPECIMENOrdering Facility: [facility] Address: [address] [place] [address] Performed By: #### 2 4344-4 ####[facility] LABCLIA [id number] [place] [id number] [place] HCO3 (Bld) [Moles/Vol] 21 mmol/L Low 24-28 [facility] Comment on above: Order Comment: Speci men Type: VENOUS BLOOD SPECIMENOrdering Facility: [facility] Address: [address] [place], [place] [address] Performed By: #### 2 4344-4 ####[facility] LABIA [id number] [place] [address] [place] Hematocrit (Bld) [Volume fraction] 35.7 % Low 39.0-51.0 [facility] Comment on above: Order Comment: Speci men Type: VENOUS BLOOD SPECIMENOrdering Facility: [facility] Address: [address] [place] [address] Performed By: #### 2 4344-4 ####[facility] LABIA [id number] [place] [address] [place] Hemoglobin (Bld) [Mass/Vol] 11.6 g/dL Low 13.0-17.0 [facility] Comment on above: Order Comment: Speci men Type: VENOUS BLOOD SPECIMENOrdering Facility: [facility] Address: [address] [place] [address] Performed By: #### 2 4344-4 ####[facility] [id number] [place] [address] [place] Lactate [Moles/Vol] 8.4 mmol/L High 0.5-2.2 [facility] Comment on above: Order Comment: Speci men Type: VENOUS BLOOD SPECIMENOrdering Facility: [facility] Address: [address] [place] [address] Performed By: #### 2 4344-4 ####[facility] LABIA [id number] [place] [address] [place] Methemoglobin (Bld) [Mass fraction] 1.0 % Normal 0.0-1.5 [facility] Comment on above: Order Comment: Speci men Type: VENOUS BLOOD SPECIMENOrdering Facility: [facility] Address: [address] [place] [address] Performed By: #### 2 4344-4 ####[facility] LABIA [id number] [place] [address] [place] O2 THERAPY VENT=Ventilator Normal [facility] Comment on above: Order Comment: Speci men Type: VENOUS BLOOD SPECIMENOrdering Facility: [facility] Address: [address] [place] [address] Performed By: #### 2 4344-4 ####[facility] LABCLIA [id number] [address] [address] [place] Oxygen (BldV) [Partial pressure] 50 mm[Hg] High 35-45 [facility] Comment on above: Order Comment: Speci men Type: VENOUS BLOOD SPECIMENOrdering Facility: [facility] Address: [address] [id number] Performed By: #### 2 4344-4 ####[facility] LABCLIA [id number] [address] [address] [place] Oxygen adjusted to patient's actual temperature (BldV) [Partial pressure] 51 mmHg High 35-45 [facility] Comment on above: Order Comment: Speci men Type: VENOUS BLOOD SPECIMENOrdering Facility: [facility] Address: [address] [place] [address] Performed By: #### 2 4344-4 ####[facility] LABCLIA [id number] [address] [address] [place] Oxygen saturation in Venous blood 84 % Normal 60-85 [facility] Comment on above: Order Comment: Speci men Type: VENOUS BLOOD SPECIMENOrdering Facility: [facility] Address: [address] [place] [address] Performed By: #### 2 4344-4 ####[facility] LABCLIA [id number] [address] [address] [place] Oxyhemoglobin (BldV) [Mass fraction] 82 % Normal 60-85 [facility] Comment on above: Order Comment: Speci men Type: VENOUS BLOOD SPECIMENOrdering Facility: [facility] Address: [address] [place] [address] Performed By: #### 2 4344-4 ####[facility] LABCLIA [id number] [place] [address] [place] pH (BldV) 7.35 [pH] Normal 7.32-7.42 [facility] Comment on above: Order Comment: Speci men Type: VENOUS BLOOD SPECIMENOrdering Facility: [facility] Address: [address] [place] [address] Performed By: #### 2 4344-4 ####[facility] LABCLIA [id number] [place] [address] [place] pH adjusted to patient's actual temperature (BldV) 7.34 Normal 7.32-7.42 [facility] Comment on above: Order Comment: Speci men Type: VENOUS BLOOD SPECIMENOrdering Facility: [facility] Address: [address] [place] [address] Performed By: #### 2 4344-4 ####[facility] LABIA [id number] [place] [address] [place] Potassium [Moles/Vol] 3.8 mmol/L Normal 3.5-5.0 [facility] Comment on above: Order Comment: Speci men Type: VENOUS BLOOD SPECIMENOrdering Facility: [facility] Address: [address] [place] [address] Performed By: #### 2 4344-4 ####[facility] LABIA [id number] [place] [address] [place] Sodium [Moles/Vol] 138 mmol/L Normal 136-144 [facility] Comment on above: Order Comment: Speci men Type: VENOUS BLOOD SPECIMENOrdering Facility: [facility] Address: [address] [place] [address] Performed By: #### 2 4344-4 ####[facility] LABCLIA [id number] [place] [address] [place] BASE DEFICIT, VENOUS -7 mmol/L Low -2-0 [facility] Comment on above: Order Comment: Speci men Type: VENOUS BLOOD SPECIMENOrdering Facility: [facility] Address: [address] [place] [address] Performed By: #### 2 4344-4 ####[facility] LABCLIA [id number] [place] [address] [place] Calcium.ionized (Bld) [Mass/Vol] 1.11 mmol/L Normal 1.08-1.30 [facility] Comment on above: Order Comment: Speci men Type: VENOUS BLOOD SPECIMENOrdering Facility: [facility] Address: [address] [place] [address] Performed By: #### 2 4344-4 ####[facility] LABCLIA [id number] [place] [address] [place] Calcium.ionized adjusted to pH 7.4 (BldA) [Moles/Vol] 1.04 mmol/L Low 1.08-1.30 [facility] Comment on above: Order Comment: Speci men Type: VENOUS BLOOD SPECIMENOrdering Facility: [facility] Address: [address] [place] [address] Performed By: #### 2 4344-4 ####[facility] LABCLIA [id number] [place] [address] [place] Carboxyhemoglobin (BldV) [Mass fraction] 1.0 % Normal 0.0-2.0 [facility] Comment on above: Order Comment: Speci men Type: VENOUS BLOOD SPECIMENOrdering Facility: [facility] Address: [address] [place] [address] Result Comment: Carb oxyhemoglobin Reference Range for Smokers: 2.0-8.0% Performed By: #### 2 4344-4 ####[facility] LABCLIA [id number] [place] [address] [place] CO2 (BldV) [Partial pressure] 42 mm[Hg] Normal 42-55 [facility] Comment on above: Order Comment: Speci men Type: VENOUS BLOOD SPECIMENOrdering Facility: [facility] Address: [address] [place] [id number] Performed By: #### 2 4344-4 ####[facility] LABCLIA [id number] [address] [address] [place] CO2 adjusted to patient's actual temperature (BldV) [Partial pressure] 42 mmHg Normal 42-55 [facility] Comment on above: Order Comment: Speci men Type: VENOUS BLOOD SPECIMENOrdering Facility: [facility] Address: [address] [place] [address] Performed By: #### 2 4344-4 ####[facility] LABCLIA [id number] [place] [address] [place] Glucose [Mass/Vol] 147 mg/dL High 60-105 [facility] Comment on above: Order Comment: Speci men Type: VENOUS BLOOD SPECIMENOrdering Facility: [facility] Address: [address] [place] [address] Performed By: #### 2 4344-4 ####[facility] LABCLIA [id number] [place] [address] [place] Hematocrit (Bld) [Volume fraction] 37.9 % Low 39.0-51.0 [facility] Comment on above: Order Comment: Speci men Type: VENOUS BLOOD SPECIMENOrdering Facility: [facility] Address: [address] [place] [address] Performed By: #### 2 4344-4 ####[facility] LABCLIA [id number] [place] [id number] [place] Hemoglobin (Bld) [Mass/Vol] 12.3 g/dL Low 13.0-17.0 [facility] Comment on above: Order Comment: Speci men Type: VENOUS BLOOD SPECIMENOrdering Facility: [facility] Address: [address] [place], [place] [address] Performed By: #### 2 4344-4 ####[facility] LABCLIA [id number] [address] [address] [place] Lactate [Moles/Vol] 6.6 mmol/L High 0.5-2.2 [facility] Comment on above: Order Comment: Speci men Type: VENOUS BLOOD SPECIMENOrdering Facility: [facility] Address: [address] [place] [address] Performed By: #### 2 4344-4 ####[facility] LABCLIA [id number] [place] [address] [place] Oxygen (BldV) [Partial pressure] 53 mm[Hg] High 35-45 [facility] Comment on above: Order Comment: Speci men Type: VENOUS BLOOD SPECIMENOrdering Facility: [facility] Address: [address] [place] [address] Performed By: #### 2 4344-4 ####[facility] LABCLIA [id number] [place] [address] [place] Oxygen adjusted to patient's actual temperature (BldV) [Partial pressure] 54 mmHg High 35-45 [facility] Comment on above: Order Comment: Speci men Type: VENOUS BLOOD SPECIMENOrdering Facility: [facility] Address: [address] [place], [place] [address] Performed By: #### 2 4344-4 ####[facility] LABCLIA [id number] [place] [address] [place] Oxygen saturation in Venous blood 84 % Normal 60-85 [facility] Comment on above: Order Comment: Speci men Type: VENOUS BLOOD SPECIMENOrdering Facility: [facility] Address: [address] [place], [place] [address] Performed By: #### 2 4344-4 ####[facility] LABCLIA [id number] [address] [address] [place] Oxyhemoglobin (BldV) [Mass fraction] 82 % Normal 60-85 [facility] Comment on above: Order Comment: Speci men Type: VENOUS BLOOD SPECIMENOrdering Facility: [facility] Address: [address] [place] [address] Performed By: #### 2 4344-4 ####[facility] LABIA [id number] [address] [address] [place] pH (BldV) 7.28 [pH] Low 7.32-7.42 [facility] Comment on above: Order Comment: Speci men Type: VENOUS BLOOD SPECIMENOrdering Facility: [facility] Address: [address] [place] [address] Performed By: #### 2 4344-4 ####[facility] LABIA [id number] [place] [address] [place] pH adjusted to patient's actual temperature (BldV) 7.28 Low 7.32-7.42 [facility] Comment on above: Order Comment: Speci men Type: VENOUS BLOOD SPECIMENOrdering Facility: [facility] Address: [address] [place], [place] [address] Performed By: #### 2 4344-4 ####[facility] LABIA [id number] [place] [address] [place] Potassium [Moles/Vol] 3.5 mmol/L Normal 3.5-5.0 [facility] Comment on above: Order Comment: Speci men Type: VENOUS BLOOD SPECIMENOrdering Facility: [facility] Address: [address] [place] [address] Performed By: #### 2 4344-4 ####[facility] LABIA [id number] [place] [address] [place] Sodium [Moles/Vol] 143 mmol/L Normal 136-144 [facility] Comment on above: Order Comment: Speci men Type: VENOUS BLOOD SPECIMENOrdering Facility: [facility] Address: [address] [place] [address] Performed By: #### 2 4344-4 ####[facility] LABCLIA [id number] [place] [address] [place] BASE DEFICIT, VENOUS -7 mmol/L Low -2-0 [facility] Comment on above: Order Comment: Speci men Type: VENOUS BLOOD SPECIMENOrdering Facility: [facility] Address: [address] [place] [address] Performed By: #### 2 4344-4 ####[facility] LABCLIA [id number] [place] [address] [place] Body temperature 97.7 [degF] Normal [facility] Comment on above: Order Comment: Speci men Type: VENOUS BLOOD SPECIMENOrdering Facility: [facility] Address: [address] [place] [address] Performed By: #### 2 4344-4 ####[facility] LABIA [id number] [place] [address] [place] Calcium.ionized (Bld) [Mass/Vol] 1.17 mmol/L Normal 1.08-1.30 [facility] Comment on above: Order Comment: Speci men Type: VENOUS BLOOD SPECIMENOrdering Facility: [facility] Address: [address] [place] [address] Performed By: #### 2 4344-4 ####[facility] LABCLIA [id number] [place] [address] [place] Calcium.ionized adjusted to pH 7.4 (BldA) [Moles/Vol] 1.07 mmol/L Low 1.08-1.30 [facility] Comment on above: Order Comment: Speci men Type: VENOUS BLOOD SPECIMENOrdering Facility: [facility] Address: [address] [place] [address] Performed By: #### 2 4344-4 ####[facility] LABIA [id number] [address] [place] Carboxyhemoglobin (BldV) [Mass fraction] 0.9 % Normal 0.0-2.0 [facility] Comment on above: Order Comment: Speci men Type: VENOUS BLOOD SPECIMENOrdering Facility: [facility] Address: [address] [place] [address] Result Comment: Carb oxyhemoglobin Reference Range for Smokers: 2.0-8.0% Performed By: #### 2 4344-4 ####[facility] LABCLIA [id number] [place] [address] [place] CO2 (BldV) [Partial pressure] 48 mm[Hg] Normal 42-55 [facility] Comment on above: Order Comment: Speci men Type: VENOUS BLOOD SPECIMENOrdering Facility: [facility] Address: [address] [place] [address] Performed By: #### 2 4344-4 ####[facility] LABCLIA [id number] [address] [place] CO2 adjusted to patient's actual temperature (BldV) [Partial pressure] 47 mmHg Normal 42-55 [facility] Comment on above: Order Comment: Speci men Type: VENOUS BLOOD SPECIMENOrdering Facility: [facility] Address: [address] [place] [address] Performed By: #### 2 4344-4 ####[facility] LABCLIA [id number] [place] [address] [place] FIO2 50 % Normal [facility] Comment on above: Order Comment: Speci men Type: VENOUS BLOOD SPECIMENOrdering Facility: [facility] Address: [address] [place] [address] Performed By: #### 2 4344-4 ####[facility] LABCLIA [id number] [place] [address] [place] Glucose [Mass/Vol] 174 mg/dL High 60-105 [facility] Comment on above: Order Comment: Speci men Type: VENOUS BLOOD SPECIMENOrdering Facility: [facility] Address: [address] [place] [address] Performed By: #### 2 4344-4 ####[facility] LABCLIA [id number] [place] [address] [place] HCO3 (Bld) [Moles/Vol] 20 mmol/L Low 24-28 [facility] Comment on above: Order Comment: Speci men Type: VENOUS BLOOD SPECIMENOrdering Facility: [facility] Address: [address] [place] [address] Performed By: #### 2 4344-4 ####[facility] LABCLIA [id number] [place] [address] [place] Hematocrit (Bld) [Volume fraction] 41.3 % Normal 39.0-51.0 [facility] Comment on above: Order Comment: Speci men Type: VENOUS BLOOD SPECIMENOrdering Facility: [facility] Address: [address] [place] [address] Performed By: #### 2 4344-4 ####[facility] LABCLIA [id number] [place] [address] [place] Hemoglobin (Bld) [Mass/Vol] 13.4 g/dL Normal 13.0-17.0 [facility] Comment on above: Order Comment: Speci men Type: VENOUS BLOOD SPECIMENOrdering Facility: [facility] Address: [address] [place] [address] Performed By: #### 2 4344-4 ####[facility] LABCLIA [id number] [place] [address] [place] Lactate [Moles/Vol] 5.7 mmol/L High 0.5-2.2 [facility] Comment on above: Order Comment: Speci men Type: VENOUS BLOOD SPECIMENOrdering Facility: [facility] Address: [address] [place] [address] Performed By: #### 2 4344-4 ####[facility] LABCLIA [id number] [place] [id number] [place] Methemoglobin (Bld) [Mass fraction] 1.7 % High 0.0-1.5 [facility] Comment on above: Order Comment: Speci men Type: VENOUS BLOOD SPECIMENOrdering Facility: [facility] Address: [address] [place] [address] Performed By: #### 2 4344-4 ####[facility] LABCLIA [id number] [place] [address] [place] O2 THERAPY VENT=Ventilator Normal [facility] Comment on above: Order Comment: Speci men Type: VENOUS BLOOD SPECIMENOrdering Facility: [facility] Address: [address] [place] [address] Performed By: #### 2 4344-4 ####[facility] LABCLIA [id number] [place] [address] [place] Oxygen (BldV) [Partial pressure] 55 mm[Hg] High 35-45 [facility] Comment on above: Order Comment: Speci men Type: VENOUS BLOOD SPECIMENOrdering Facility: [facility] Address: [address] [place] [address] Performed By: #### 2 4344-4 ####[facility] LABCLIA [id number] [place] [address] [place] Oxygen adjusted to patient's actual temperature (BldV) [Partial pressure] 53 mmHg High 35-45 [facility] Comment on above: Order Comment: Speci men Type: VENOUS BLOOD SPECIMENOrdering Facility: [facility] Address: [address] [place], [place] [address] Performed By: #### 2 4344-4 ####[facility] LABCLIA [id number] [place] [id number] [place] Oxygen saturation in Venous blood 82 % Normal 60-85 [facility] Comment on above: Order Comment: Speci men Type: VENOUS BLOOD SPECIMENOrdering Facility: [facility] Address: [address] [place], [place] [address] Performed By: #### 2 4344-4 ####[facility] LABCLIA [id number] [place] [address] [place] Oxyhemoglobin (BldV) [Mass fraction] 80 % Normal 60-85 [facility] Comment on above: Order Comment: Speci men Type: VENOUS BLOOD SPECIMENOrdering Facility: [facility] Address: [address] [place] [address] Performed By: #### 2 4344-4 ####[facility] LABCLIA [id number] [place] [address] [place] pH (BldV) 7.24 [pH] Low 7.32-7.42 [facility] Comment on above: Order Comment: Speci men Type: VENOUS BLOOD SPECIMENOrdering Facility: [facility] Address: [address] [place] [address] Performed By: #### 2 4344-4 ####[facility] LABCLIA [id number] [place] [address] [place] pH adjusted to patient's actual temperature (BldV) 7.24 Low 7.32-7.42 [facility] Comment on above: Order Comment: Speci men Type: VENOUS BLOOD SPECIMENOrdering Facility: [facility] Address: [address] [place] [address] Performed By: #### 2 4344-4 ####[facility] LABCLIA [id number] [place] [address] [place] Potassium [Moles/Vol] 3.7 mmol/L Normal 3.5-5.0 [facility] Comment on above: Order Comment: Speci men Type: VENOUS BLOOD SPECIMENOrdering Facility: [facility] Address: [address] [place], [place] [address] Performed By: #### 2 4344-4 ####[facility] LABCLIA [id number] [place] [id number] [place] Sodium [Moles/Vol] 141 mmol/L Normal 136-144 [facility] Comment on above: Order Comment: Speci men Type: VENOUS BLOOD SPECIMENOrdering Facility: [facility] Address: [address] [place] [address] Performed By: #### 2 4344-4 ####[facility] LABIA [id number] [place] [address] [place] Glucose SerPl-mCncon 024 Glucose [Mass/Vol] 110 mg/dL High 74-99 [facility] Comment on above: Order Comment: Speci men Type: BLOOD SPECIMENOrdering Facility: [facility] Address: [address] [place] [address] Result Comment: The [place] [employer] (ADA) provides guidance for cutoff [...] Standards of Medical Care in Diabetes 2016, [place] [employer]. Diabetes Care. 2016.39(Suppl 1). Performed By: #### 2 345-7, K1 ####[facility] LABIA [id number] [place] [id number] [place] Hematocrit Auto (Bld) [Volum e fraction]on 01-23-2024 Hematocrit (Bld) [Volume fraction] 36.8 % Low 39.0-51.0 [facility] Comment on above: Order Comment: Speci men Type: BLOOD SPECIMENOrdering Facility: [facility] Address: [address] [place] [address] Performed By: #### 4 544-3 ####[facility] LABIA [id number] [place] [address] [place] INTRAOPERATIVE ECHO PREon INTRAOPERATIVE ECHO PRE Normal C [facility] No Panel InformationOrdered By: Kristofer Light on 01-23-2024 Implantable Lead Connection Status Connected [facility] Work Phone: Implantable Lead Implant Date [id number] [facility] Work Phone: Implantable Lead Curatorial Assistant Populr [facility] Work Phone: Lead Channel Measurements Date and Time 2024-01-23 [facility] Work Phone: Zone Setting Status On [facility] Work Phone: OPERATIVE NOon 01-23-2024 OPERATIVE NO Normal [facility] POTASSIUMon 01-23-2024 Potassium [Moles/Vol] 4.4 mmol/L Normal 3.7-5.1 [facility] Comment on above: Order Comment: Speci men Type: BLOOD SPECIMENOrdering Facility: [facility] Address: [address] [place] [address] Performed By: #### 2 345-7, K1 ####[facility] LABIA [id number] [address] [place] PT panel Coag (PPP)on 2023 INR Coag (PPP) [Relative time] 1.1 {INR} Normal 0.9-1.3 [facility] Comment on above: Order Comment: Speci men Type: BLOOD SPECIMENOrdering Facility: [facility] Address: [address] [place] [address] Result Comment: Indu min K Antagonist (VKA) Therapeutic Range: INR 2 to 3 (Target INR of 2.5)Note: For patients treated with VKA drugs, such as warfarin, the [place] [employer] 2012 Guideline recommends [...] of 3).Anson GH, et al. Chest 2012, 141:7S-47SNishradha RA, et al. [facility] 2017, 70: 252-289 Performed By: #### 1 4979-9, 66338-2 ####[facility] LABIA [id number] [place] [address] [place] PT Coag (PPP) [Time] 11.6 s Normal 9.7-13.0 [facility] Comment on above: Order Comment: Jeison parry Type: BLOOD SPECIMENOrdering Facility: [facility] Address: [address] [place] [address] Performed By: #### 1 4979-9, 92056-8 ####[facility] LABIA [id number] [place] [address] [place] Platelets Auto (Bld) [#/Vol] on 01-23-2024 Platelets (Bld) [#/Vol] 112 10*3/uL Low 150-400 [facility] Comment on above: Order Comment: Jeison parry Type: BLOOD SPECIMENOrdering Facility: [facility] Address: [address] [place] [address] Performed By: #### 7 77-3 ####[facility] [id number] [place] [address] [place] VENOUS BLOOD GASES WITH IONI ZED MAGNESIUMon 01-23-2024 Base excess Calc (BldV) [Moles/Vol] 0 mmol/L Normal 0-2 [facility] Comment on above: Order Comment: Jeison parry Type: VENOUS BLOOD SPECIMENOrdering Facility: [facility] Address: [address] [place], [place] [address] Performed By: #### V ALLMG ####[facility] [id number] [place] [address] [place] Calcium.ionized (Bld) [Mass/Vol] 1.24 mmol/L Normal 1.08-1.30 [facility] Comment on above: Order Comment: Speci men Type: VENOUS BLOOD SPECIMENOrdering Facility: [facility] Address: [address] [place] [address] Performed By: #### V ALLMG ####[facility] [id number] [place] [address] [place] Calcium.ionized adjusted to pH 7.4 (BldA) [Moles/Vol] 1.17 mmol/L Normal 1.08-1.30 [facility] Comment on above: Order Comment: Speci men Type: VENOUS BLOOD SPECIMENOrdering Facility: [facility] Address: [address] [place] [address] Performed By: #### V ALLMG ####[facility] [id number] [place] [address] [place] Carboxyhemoglobin (BldV) [Mass fraction] 1.5 % Normal 0.0-2.0 [facility] Comment on above: Order Comment: Speci men Type: VENOUS BLOOD SPECIMENOrdering Facility: [facility] Address: [address] [place] [address] Result Comment: Carb oxyhemoglobin Reference Range for Smokers: 2.0-8.0% Performed By: #### V ALLMG ####[facility] [id number] [place] [address] [place] CO2 (BldV) [Partial pressure] 55 mm[Hg] Normal 42-55 [facility] Comment on above: Order Comment: Speci men Type: VENOUS BLOOD SPECIMENOrdering Facility: [facility] Address: [address] [place] [address] Performed By: #### V ALLMG ####[facility] LABCLIA [id number] [place] [address] [place] CO2 adjusted to patient's actual temperature (BldV) [Partial pressure] 55 mmHg Normal 42-55 [facility] Comment on above: Order Comment: Speci men Type: VENOUS BLOOD SPECIMENOrdering Facility: [facility] Address: [address] [place] [address] Performed By: #### V ALLMG ####[facility] LABCLIA [id number] [place] [address] [place] Glucose [Mass/Vol] 108 mg/dL High 60-105 [facility] Comment on above: Order Comment: Speci men Type: VENOUS BLOOD SPECIMENOrdering Facility: [facility] Address: [address] [place] [address] Performed By: #### V ALLMG ####[facility] LABCLIA [id number] [place] [address] [place] Order Comment: Speci men Type: ARTERIAL BLOOD SPECIMENOrdering Facility: [facility] Address: [address] [place] [address] Performed By: #### A LLMG ####[facility] LABCLIA [id number] [place] [address] [place] HCO3 (Bld) [Moles/Vol] 26 mmol/L Normal 24-28 [facility] Comment on above: Order Comment: Speci men Type: VENOUS BLOOD SPECIMENOrdering Facility: [facility] Address: [address] [place] [address] Performed By: #### V ALLMG ####[facility] LABCLIA [id number] [place] [address] [place] Hematocrit (Bld) [Volume fraction] 34.5 % Low 39.0-51.0 [facility] Comment on above: Order Comment: Speci men Type: VENOUS BLOOD SPECIMENOrdering Facility: [facility] Address: [address] [place] [address] Performed By: #### V ALLMG ####[facility] LABCLIA [id number] [place] [address] [place] Hemoglobin (Bld) [Mass/Vol] 11.2 g/dL Low 13.0-17.0 [facility] Comment on above: Order Comment: Speci men Type: VENOUS BLOOD SPECIMENOrdering Facility: [facility] Address: [address] [place] [address] Performed By: #### V ALLMG ####[facility] LABCLIA [id number] [place] [address] [place] Lactate [Moles/Vol] 2.2 mmol/L Normal 0.5-2.2 [facility] Comment on above: Order Comment: Speci men Type: VENOUS BLOOD SPECIMENOrdering Facility: [facility] Address: [address] [place] [address] Performed By: #### V ALLMG ####[facility] LABIA [id number] [place] [address] [place] Magnesium [Moles/Vol] 0.57 mmol/L Normal 0.45-0.60 [facility] Comment on above: Order Comment: Speci men Type: VENOUS BLOOD SPECIMENOrdering Facility: [facility] Address: [address] [place] [address] Performed By: #### V ALLMG ####[facility] LABCLIA [id number] [place] [address] [place] Methemoglobin (Bld) [Mass fraction] 0.8 % Normal 0.0-1.5 [facility] Comment on above: Order Comment: Speci men Type: VENOUS BLOOD SPECIMENOrdering Facility: [facility] Address: [address] [place] [address] Performed By: #### V ALLMG ####[facility] LABCLIA [id number] [address] [address] [place] Oxygen (BldV) [Partial pressure] 60 mm[Hg] High 35-45 [facility] Comment on above: Order Comment: Speci men Type: VENOUS BLOOD SPECIMENOrdering Facility: [facility] Address: [address] [place] [address] Performed By: #### V ALLMG ####[facility] LABCLIA [id number] [place] [address] [place] Oxygen adjusted to patient's actual temperature (BldV) [Partial pressure] 60 mmHg High 35-45 [facility] Comment on above: Order Comment: Speci men Type: VENOUS BLOOD SPECIMENOrdering Facility: [facility] Address: [address] [place] [address] Performed By: #### V ALLMG ####[facility] [facility] LABCLIA [id number] [place] [address] [place] Oxygen saturation in Venous blood 88 % High 60-85 [facility] Comment on above: Order Comment: Speci men Type: VENOUS BLOOD SPECIMENOrdering Facility: [facility] Address: [address] [place] [address] Performed By: #### V ALLMG ####[facility] LABCLIA [id number] [place] [address] [place] Oxyhemoglobin (BldV) [Mass fraction] 86 % High 60-85 [facility] Comment on above: Order Comment: Speci men Type: VENOUS BLOOD SPECIMENOrdering Facility: [facility] Address: [address] [place], [place] [address] Performed By: #### V ALLMG ####[facility] LABCLIA [id number] [place] [address] [place] pH (BldV) 7.30 [pH] Low 7.32-7.42 [facility] Comment on above: Order Comment: Speci men Type: VENOUS BLOOD SPECIMENOrdering Facility: [facility] Address: [address] [place] [address] Performed By: #### V ALLMG ####[facility] LABCLIA [id number] [place] [address] [place] pH adjusted to patient's actual temperature (BldV) 7.30 Low 7.32-7.42 [facility] Comment on above: Order Comment: Speci men Type: VENOUS BLOOD SPECIMENOrdering Facility: [facility] Address: [address] [place] [address] Performed By: #### V ALLMG ####[facility] LABCLIA [id number] [place] [address] [place] Potassium [Moles/Vol] 4.5 mmol/L Normal 3.5-5.0 [facility] Comment on above: Order Comment: Speci men Type: VENOUS BLOOD SPECIMENOrdering Facility: [facility] Address: [address] [place] [address] Performed By: #### V ALLMG ####[facility] LABCLIA [id number] [place] [address] [place] Order Comment: Speci men Type: ARTERIAL BLOOD SPECIMENOrdering Facility: [facility] Address: [address] [place] [address] Performed By: #### A LLMG ####[facility] LABCLIA [id number] [place] [address] [place] Sodium [Moles/Vol] 141 mmol/L Normal 136-144 [facility] Comment on above: Order Comment: Speci men Type: VENOUS BLOOD SPECIMENOrdering Facility: [facility] Address: [address] [place] [address] Performed By: #### V ALLMG ####[facility] LABCLIA [id number] [place] [address] [place] Order Comment: Speci men Type: ARTERIAL BLOOD SPECIMENOrdering Facility: [facility] Address: [address] [place] [address] Performed By: #### A LLMG ####[facility] LABCLIA [id number] [place] [address] [place] XR CHEST 1V FRONTAL PORTon 1 XR CHEST 1V FRONTAL PORT Normal [facility] XR CHEST 1V FRONTAL PORT Normal [facility] aPTT PPPon 01-23-2024 aPTT Coag (PPP) [Time] 25.9 s Normal 23.0-32.4 [facility] Comment on above: Order Comment: Speci men Type: BLOOD SPECIMENOrdering Facility: [facility] Address: [address] [place] [address] Performed By: #### 1 4979-9, 96597-4 ####[facility] LABIA [id number] [place] [address] [place] CNCNPATEDon 01-22-2024 CNCNPATED Normal [facility] CNOVon 01-22-2024 CNOV Normal [facility] STAPHYLOCOCCUS AUREUS AND MR SA SCREEN, PCR, NASALon 01-22-2024 S. aureus and MRSA panel ARTIS+probe (Nose) Not detected Normal Not Detected [facility] Comment on above: Order Comment: Speci men Type: SWABOrdering Facility: [facility] Address: [address] [place] [address] Performed By: #### S APCR ####[facility] LABIA [id number] [place] [address] [place] CBC W Auto Differential pane l (Bld)on 01-19-2024 Basophils (Bld) [#/Vol] 0.09 10*3/uL Normal <0.11 [facility] Comment on above: Order Comment: Speci men Type: BLOOD SPECIMENOrdering Facility: [facility] Address: [address] [place] [address] Performed By: #### 5 7021-8 ####[facility] LABCLIA [id number] [place] [address] [place] Basophils/100 WBC (Bld) 1.1 % Normal [facility] Comment on above: Order Comment: Speci men Type: BLOOD SPECIMENOrdering Facility: [facility] Address: [address] [place] [address] Performed By: #### 5 7021-8 ####[facility] LABCLIA [id number] [place] [address] [place] Differential cell count method Nom (Bld) Auto Normal [facility] Comment on above: Order Comment: Speci men Type: BLOOD SPECIMENOrdering Facility: [facility] Address: [address] [place] [address] Performed By: #### 5 7021-8 ####[facility] LABCLIA [id number] [place] [address] [place] Eosinophils (Bld) [#/Vol] 0.28 10*3/uL Normal <0.46 [facility] Comment on above: Order Comment: Speci men Type: BLOOD SPECIMENOrdering Facility: [facility] Address: [address] [place] [address] Performed By: #### 5 7021-8 ####[facility] LABCLIA [id number] [address] [place] Eosinophils/100 WBC (Bld) 3.4 % Normal [facility] Comment on above: Order Comment: Speci men Type: BLOOD SPECIMENOrdering Facility: [facility] Address: [address] [place] [address] Performed By: #### 5 7021-8 ####[facility] LABCLIA [id number] [place] [address] [place] Erythrocyte distribution width (RBC) [Ratio] 14.9 % Normal 11.5-15.0 [facility] Comment on above: Order Comment: Speci men Type: BLOOD SPECIMENOrdering Facility: [facility] Address: [address] [place] [address] Performed By: #### 5 7021-8 ####[facility] LABCLIA [id number] [place] [address] [place] Hematocrit (Bld) [Volume fraction] 42.7 % Normal 39.0-51.0 [facility] Comment on above: Order Comment: Speci men Type: BLOOD SPECIMENOrdering Facility: [facility] Address: [address] [place] [address] Performed By: #### 5 7021-8 ####[facility] LABIA [id number] [place] [address] [place] Hemoglobin (Bld) [Mass/Vol] 13.8 g/dL Normal 13.0-17.0 [facility] Comment on above: Order Comment: Speci men Type: BLOOD SPECIMENOrdering Facility: [facility] Address: [address] [place] [address] Performed By: #### 5 7021-8 ####[facility] LABIA [id number] [place] [address] [place] Immature granulocytes (Bld) [#/Vol] 0.05 10*3/uL Normal <0.10 [facility] Comment on above: Order Comment: Speci men Type: BLOOD SPECIMENOrdering Facility: [facility] Address: [address] [place] [address] Performed By: #### 5 7021-8 ####[facility] LABIA [id number] [place] [address] [place] Immature granulocytes/100 WBC (Bld) 0.6 % Normal [facility] Comment on above: Order Comment: Speci men Type: BLOOD SPECIMENOrdering Facility: [facility] Address: [address] [place] [address] Performed By: #### 5 7021-8 ####[facility] LABIA [id number] [place] [address] [place] Lymphocytes (Bld) [#/Vol] 2.35 10*3/uL Normal 1.00-4.00 [facility] Comment on above: Order Comment: Speci men Type: BLOOD SPECIMENOrdering Facility: [facility] Address: [address] [place] [address] Performed By: #### 5 7021-8 ####[facility] LABCLIA [id number] [place] [address] [place] Lymphocytes/100 WBC (Bld) 28.5 % Normal [facility] Comment on above: Order Comment: Speci men Type: BLOOD SPECIMENOrdering Facility: [facility] Address: [address] [place] [address] Performed By: #### 5 7021-8 ####[facility] LABIA [id number] [place] [address] [place] MCH (RBC) [Entitic mass] 27.5 pg Normal 26.0-34.0 [facility] Comment on above: Order Comment: Speci men Type: BLOOD SPECIMENOrdering Facility: [facility] Address: [address] [place] [address] Performed By: #### 5 7021-8 ####[facility] LABCLIA [id number] [place] [address] [place] MCHC (RBC) [Mass/Vol] 32.3 g/dL Normal 30.5-36.0 [facility] Comment on above: Order Comment: Speci men Type: BLOOD SPECIMENOrdering Facility: [facility] Address: [address] [place] [address] Performed By: #### 5 7021-8 ####[facility] LABCLIA [id number] [place] [address] [place] MCV (RBC) [Entitic vol] 85.2 fL Normal 80.0-100.0 [facility] Comment on above: Order Comment: Speci men Type: BLOOD SPECIMENOrdering Facility: [facility] Address: [address] [place] [address] Performed By: #### 5 7021-8 ####[facility] LABCLIA [id number] [place] [address] [place] Monocytes (Bld) [#/Vol] 0.71 10*3/uL Normal <0.87 [facility] Comment on above: Order Comment: Speci men Type: BLOOD SPECIMENOrdering Facility: [facility] Address: [address] [place] [address] Performed By: #### 5 7021-8 ####[facility] LABCLIA [id number] [place] [address] [place] Monocytes/100 WBC (Bld) 8.6 % Normal [facility] Comment on above: Order Comment: Speci men Type: BLOOD SPECIMENOrdering Facility: [facility] Address: [address] [place] [address] Performed By: #### 5 7021-8 ####[facility] LABCLIA [id number] [place] [address] [place] Neutrophils (Bld) [#/Vol] 4.77 10*3/uL Normal 1.45-7.50 [facility] Comment on above: Order Comment: Speci men Type: BLOOD SPECIMENOrdering Facility: [facility] Address: [address] [place] [address] Performed By: #### 5 7021-8 ####[facility] LABCLIA [id number] [place] [address] [place] Neutrophils/100 WBC (Bld) 57.8 % Normal [facility] Comment on above: Order Comment: Speci men Type: BLOOD SPECIMENOrdering Facility: [facility] Address: [address] [place] [address] Performed By: #### 5 7021-8 ####[facility] LABCLIA [id number] [place] [address] [place] Nucleated RBC (Bld) [#/Vol] 10*3/uL Normal <0.01 [facility] Comment on above: Order Comment: Speci men Type: BLOOD SPECIMENOrdering Facility: [facility] Address: [address] [place] [address] Performed By: #### 5 7021-8 ####[facility] LABCLIA [id number] [place] [address] [place] Nucleated RBC/100 WBC (Bld) [Ratio] 0.0 /100 WBC Normal [facility] Comment on above: Order Comment: Speci men Type: BLOOD SPECIMENOrdering Facility: [facility] Address: [address] [place] [address] Performed By: #### 5 7021-8 ####[facility] LABCLIA [id number] [place] [address] [place] Platelet mean volume (Bld) [Entitic vol] 10.5 fL Normal 9.0-12.7 [facility] Comment on above: Order Comment: Speci men Type: BLOOD SPECIMENOrdering Facility: [facility] Address: [address] [place] [address] Performed By: #### 5 7021-8 ####[facility] LABCLIA [id number] [place] [address] [place] Platelets (Bld) [#/Vol] 211 10*3/uL Normal 150-400 [facility] Comment on above: Order Comment: Speci men Type: BLOOD SPECIMENOrdering Facility: [facility] Address: [address] [place] [address] Performed By: #### 5 7021-8 ####[facility] LABCLIA [id number] [place] [address] [place] RBC (Bld) [#/Vol] 5.01 10*6/uL Normal 4.20-6.00 [facility] Comment on above: Order Comment: Speci men Type: BLOOD SPECIMENOrdering Facility: [facility] Address: [address] [place] [address] Performed By: #### 5 7021-8 ####[facility] LABCLIA [id number] [place] [address] [place] WBC (Bld) [#/Vol] 8.25 10*3/uL Normal 3.70-11.00 [facility] Comment on above: Order Comment: Speci men Type: BLOOD SPECIMENOrdering Facility: [facility] Address: [address] [place] [address] Performed By: #### 5 7021-8 ####[facility] LABCLIA [id number] [place] [address] [place] CNOVon 01-19-2024 CNOV Normal [facility] CONFIRM BLOOD TYPEon 024 ABO O Normal [facility] Comment on above: Order Comment: Speci men Type: BLOOD SPECIMENOrdering Facility: [facility] Address: [address] [place] [address] Performed By: #### C ONABO ####[facility] BLOOD BANKCLIA [id number] [place] [address] [place] Rh Nom (Bld) Positive Normal [facility] Comment on above: Order Comment: Speci men Type: BLOOD SPECIMENOrdering Facility: [facility] Address: [address] [place] [address] Performed By: #### C ONABO ####[facility] BLOOD BANKCLIA [id number] [place] [address] [place] CREATININE, BLOOD (POC)on Creatinine [Mass/Vol] 1.20 mg/dL 0.7 - 1.4 mg/dL [facility] eGFR (POCT) mL/min/1.73 m2 [facility] Location:Radiology [facility], [address] [place] [address], [facility] POINT OF CARE [facility] CTA C/A/P (GATED) W IVCONon 01-19-2024 CTA C/A/P (GATED) W IVCON Normal [facility] CTA Chest vessels and Abdomi nal [...] minimal luminal caliber throughout = 12 mm Mechatronics Engineer: [facility] Transcribe Date/Time: Jan 19 2024 10:29A Dictated by : LUKE JOHNSON MD This examination was interpreted and the report reviewed and electronically signed by: LUKE JOHNSON MD on Jan 19 2024 10:47AM [facility] DIVISION OF RADIOLOGY * * *Final Report* [...] scanner PROTOCOL: Prospectively triggered helical high-pitch acquisitions (triggered Flash-mode) was performed following the intravenous administration of [...] abdominal aorta. AORTIC ROOT: 3.2 cm measured [id number]-ck-mhcwp mid ASCENDING THORACIC AORTA: 3.3 cm mid [...] changes of the thoracic and lumbar spine. Medical Claims Analyst (topogram) images: No additional findings. DIVISION OF RADIOLOGY Provider, [facility] - 01/19/2024 * * *Final Report* * [...] scanner PROTOCOL: Prospectively triggered helical high-pitch acquisitions (triggered Flash-mode) was performed following the intravenous administration of [...] abdominal aorta. AORTIC ROOT: 3.2 cm measured [id number]-fp-avsci mid ASCENDING THORACIC AORTA: 3.3 cm mid [...] changes of the thoracic and lumbar spine. Medical Claims Analyst (topogram) images: No additional findings. IMPRESSION IMPRESSION: Moderate left atrial enlargement. The mitral valve leaflets are moderately thickened, somewhat redundant, but noncalcified. Normal thoracic and abdominal aorta. No acute aortic pathology identified. The pelvic arteries, including the common femoral arteries are normal in course, caliber, and contour. The minimal luminal caliber throughout = 12 mm Mechatronics Engineer: [facility] Transcribe Date/Time: Jan 19 2024 10:29A Dictated by : LUKE JOHNSON MD This examination was interpreted and the report reviewed and electronically signed by: LUKE JOHNSON MD on Jan 19 2024 10:47AM EST [facility] Radiology Study observation (narrative) Jarad Mendoza CTA Chest vessels and Abdomi nal vessels and Pelvis vessels W contrast IVOrdered By: Ccf Provider on 01-19-2024 [facility] Comprehensive metabolic 2000 panelon 01-19-2024 Albumin [Mass/Vol] 4.5 g/dL Normal 3.9-4.9 [facility] Comment on above: Order Comment: Speci men Type: BLOOD SPECIMENOrdering Facility: [facility] Address: [address] [id number] Performed By: #### 2 4323-8, 2531-0 ####[facility] LABCLIA [id number] [place] [address] [place] ALP [Catalytic activity/Vol] 66 U/L Normal 38-113 [facility] Comment on above: Order Comment: Speci men Type: BLOOD SPECIMENOrdering Facility: [facility] Address: [address] [place] [address] Performed By: #### 2 432-8, 2531-0 ####[facility] LABCLIA [id number] [place] [address] [place] ALT [Catalytic activity/Vol] 28 U/L Normal 10-54 [facility] Comment on above: Order Comment: Speci men Type: BLOOD SPECIMENOrdering Facility: [facility] Address: [address] [place] [address] Performed By: #### 2 4328, 2531-0 ####[facility] LABCLIA [id number] [place] [address] [place] Anion gap [Moles/Vol] 14 mmol/L Normal 8-15 [facility] Comment on above: Order Comment: Speci men Type: BLOOD SPECIMENOrdering Facility: [facility] Address: [address] [place] [address] Performed By: #### 2 4328, 2531-0 ####[facility] LABCLIA [id number] [place] [id number] [place] AST [Catalytic activity/Vol] 21 U/L Normal 14-40 [facility] Comment on above: Order Comment: Speci men Type: BLOOD SPECIMENOrdering Facility: [facility] Address: [address] [place], [place] [address] Performed By: #### 2 4323-8, 2-0 ####[facility] LABCLIA [id number] [place] [address] [place] Bilirubin [Mass/Vol] 0.6 mg/dL Normal 0.2-1.3 [facility] Comment on above: Order Comment: Speci men Type: BLOOD SPECIMENOrdering Facility: [facility] Address: [address] [place] [address] Performed By: #### 2 4323-8, 2-0 ####[facility] LABCLIA [id number] [place] [address] [place] Calcium [Mass/Vol] 9.4 mg/dL Normal 8.5-10.2 [facility] Comment on above: Order Comment: Speci men Type: BLOOD SPECIMENOrdering Facility: [facility] Address: [address] [place] [address] Performed By: #### 2 4323-8, 2531-0 ####[facility] LABCLIA [id number] [place] [address] [place] Chloride [Moles/Vol] 103 mmol/L Normal 98-107 [facility] Comment on above: Order Comment: Speci men Type: BLOOD SPECIMENOrdering Facility: [facility] Address: [address] [place] [address] Performed By: #### 2 4323-8, 2-0 ####[facility] LABCLIA [id number] [place] [address] [place] CO2 [Moles/Vol] 25 mmol/L Normal 22-30 [facility] Comment on above: Order Comment: Speci men Type: BLOOD SPECIMENOrdering Facility: [facility] Address: [address] [place] [address] Performed By: #### 2 4323-8, 2532-0 ####[facility] LABCLIA [id number] [place] [address] [place] Creatinine [Mass/Vol] 1.14 mg/dL Normal 0.73-1.22 [facility] Comment on above: Order Comment: Jeison parry Type: BLOOD SPECIMENOrdering Facility: [facility] Address: [address] [place] [address] Performed By: #### 2 4323-8, 2532-0 ####[facility] LABCLIA [id number] [place] [address] [place] Creatinine and Glomerular filtration rate.predicted panel (S/P/Bld) 71 mL/min/1.73m??? Normal >=60 [facility] Comment on above: Order Comment: Jeison parry Type: BLOOD SPECIMENOrdering Facility: [facility] Address: [address] [place] [address] Result Comment: Talisha mated Glomerular Filtration Rate [...] actual GFR. Performed By: #### 2 4323-8, 2531-0 ####[facility] LABCLIA [id number] [place] [address] [place] Glucose [Mass/Vol] 80 mg/dL Normal 74-99 [facility] Comment on above: Order Comment: Jeison parry Type: BLOOD SPECIMENOrdering Facility: [facility] Address: [address] [place] [address] Result Comment: The [place] [employer] (ADA) provides guidance for cutoff [...] Standards of Medical Care in Diabetes 2016, [place] [employer]. Diabetes Care. 2016.39(Suppl 1). Performed By: #### 2 4323-8, 0 ####[facility] LABCLIA [id number] [address] [address] [place] Potassium [Moles/Vol] 4.7 mmol/L Normal 3.7-5.1 [facility] Comment on above: Order Comment: Speci men Type: BLOOD SPECIMENOrdering Facility: [facility] Address: [address] [place] [address] Performed By: #### 2 4328, 0 ####[facility] LABCLIA [id number] [place] [address] [place] Protein [Mass/Vol] 6.6 g/dL Normal 6.3-8.0 [facility] Comment on above: Order Comment: Speci men Type: BLOOD SPECIMENOrdering Facility: [facility] Address: [address] [place] [address] Performed By: #### 2 4328, 0 ####[facility] LABIA [id number] [place] [address] [place] Sodium [Moles/Vol] 142 mmol/L Normal 136-144 [facility] Comment on above: Order Comment: Speci men Type: BLOOD SPECIMENOrdering Facility: [facility] Address: [address] [id number] Performed By: #### 2 432-8, 2531-0 ####[facility] LABCLIA [id number] [address] [address] [place] Urea nitrogen [Mass/Vol] 21 mg/dL Normal 9-24 [facility] Comment on above: Order Comment: Speci men Type: BLOOD SPECIMENOrdering Facility: [facility] Address: [address] [id number] Performed By: #### 2 432-8, 2532-0 ####[facility] LABCLIA [id number] [place] [address] [place] ECG COMPLETEon 01-19-2024 ECG COMPLETE Normal [facility] [facility] L[facility] SerPl-cCncon 01-19-2024 LDH [Catalytic activity/Vol] 211 U/L Normal 135-225 [facility] Comment on above: Order Comment: Speci men Type: BLOOD SPECIMENOrdering Facility: [facility] Address: [address] [place] [address] Performed By: #### 2 4323-8, 253-0 ####[facility] LABIA [id number] [address] STATES OF [facility] PT panel Coag (PPP)on 2023 INR Coag (PPP) [Relative time] 1.0 {INR} Normal 0.9-1.3 [facility] Comment on above: Order Comment: Spectiffanie parry Type: BLOOD SPECIMENOrdering Facility: [facility] Address: [address] [place] [address] Result Comment: Indu min K Antagonist (VKA) Therapeutic Range: INR 2 to 3 (Target INR of 2.5)Note: For patients treated with VKA drugs, such as warfarin, the [place] [employer] 2012 Guideline recommends [...] of 3).Anson MANRIQUEZ, et al. Chest 2012, 141:7S-47SRebel FIGUEROA, et al. [facility] 2017, 70: 252-289 Performed By: #### 3 4528-0, 79425-5 ####[facility] LABCLIA [id number] [place] [address] [place] PT Coag (PPP) [Time] 10.4 s Normal 9.7-13.0 [facility] Comment on above: Order Comment: Speci men Type: BLOOD SPECIMENOrdering Facility: [facility] Address: [address] [place] [address] Performed By: #### 3 4528-0, 30467-9 ####[facility] LABCLIA [id number] [place] [address] [place] TYPE AND SCREEN,30 DAYon ABO O Normal [facility] Comment on above: Order Comment: Speci men Type: BLOOD SPECIMENOrdering Facility: [facility] Address: [address] [place] [address] Performed By: #### T SCR30 ####[facility] BLOOD BANKIA [id number] [place] [address] [place] HISTORICAL AB SCR STATUS Negative Normal [facility] Comment on above: Order Comment: Speci men Type: BLOOD SPECIMENOrdering Facility: [facility] Address: [address] [place] [address] Performed By: #### T SCR30 ####[facility] BLOOD BANKCLIA [id number] [place] [address] [place] Rh Nom (Bld) Positive Normal [facility] Comment on above: Order Comment: Speci men Type: BLOOD SPECIMENOrdering Facility: [facility] Address: [address] [place] [address] Performed By: #### T SCR30 ####[facility] BLOOD BANKIA [id number] [place] [address] [place] URINALYSIS, DIPSTICK ONLYon 01-19-2024 Bilirubin Ql (U) Negative Normal Negative [facility] Comment on above: Order Comment: Speci men Type: URINE SPECIMENOrdering Facility: [facility] Address: [facility] [place] [address] Performed By: #### U A ####[facility] LABCLIA [id number] [place] [address] [place] Clarity (Unsp spec) Clear Normal Clear [facility] Comment on above: Order Comment: Speci men Type: URINE SPECIMENOrdering Facility: [facility] Address: [address] [place] [address] Performed By: #### U A ####[facility] LABCLIA [id number] [place] [address] [place] Color (U) Yellow Normal Yellow [facility] Comment on above: Order Comment: Speci men Type: URINE SPECIMENOrdering Facility: [facility] Address: [address] [place] [address] Performed By: #### U A ####[facility] LABCLIA [id number] [place] [address] [place] Glucose Test strip (U) [Mass/Vol] 2+ Abnormal Negative [facility] Comment on above: Order Comment: Speci men Type: URINE SPECIMENOrdering Facility: [facility] Address: [address] [place] [address] Performed By: #### U A ####[facility] LABCLIA [id number] [place] [address] [place] Hemoglobin Ql (U) Negative Normal Negative [facility] Comment on above: Order Comment: Speci men Type: URINE SPECIMENOrdering Facility: [facility] Address: [address] [place] [address] Performed By: #### U A ####[facility] LABCLIA [id number] [place] [address] [place] Ketones Ql (U) Negative Normal Negative [facility] Comment on above: Order Comment: Speci men Type: URINE SPECIMENOrdering Facility: [facility] Address: [address] [place] [address] Performed By: #### U A ####[facility] LABCLIA [id number] [place] [address] [place] Leukocyte esterase Test strip Ql (U) Negative Normal Negative [facility] Comment on above: Order Comment: Speci men Type: URINE SPECIMENOrdering Facility: [facility] Address: [address] [place] [address] Performed By: #### U A ####[facility] LABCLIA [id number] [place] [address] [place] Nitrite Ql (U) Negative Normal Negative [facility] Comment on above: Order Comment: Speci men Type: URINE SPECIMENOrdering Facility: [facility] Address: [address] [place] [address] Performed By: #### U A ####[facility] LABIA [id number] [place] [address] [place] pH (U) 6.0 [pH] Normal <8.5 [facility] Comment on above: Order Comment: Speci men Type: URINE SPECIMENOrdering Facility: [facility] Address: [address] [place] [address] Performed By: #### U A ####[facility] LABIA [id number] [place] [address] [place] Protein (U) [Mass/Vol] Negative Normal Negative [facility] Comment on above: Order Comment: Speci men Type: URINE SPECIMENOrdering Facility: [facility] Address: [address] [place] [address] Performed By: #### U A ####[facility] LABIA [id number] [place] [address] [place] Specific gravity (U) [Rel density] 1.010 Normal 1.005-1.030 [facility] Comment on above: Order Comment: Speci men Type: URINE SPECIMENOrdering Facility: [facility] Address: [address] [place] [address] Performed By: #### U A ####[facility] [id number] [address] STATES OF [facility] Urobilinogen Ql (U) 0.2 EU/dL Normal 0.2-1.0 EU/dL [facility] Comment on above: Order Comment: Speci men Type: URINE SPECIMENOrdering Facility: [facility] Address: [address] [place], [place] [id number] Performed By: #### U A ####[facility] [id number] [place] [address] [place] XR CHEST 2V FRONTAL/LATon XR CHEST 2V FRONTAL/LAT Normal C [facility] XR Chest PA and Lateralon IMPRESSION: See Result. Mechatronics Engineer: CHRISTOFER Transcribe Date/Time: Jan 19 2024 11:03A Dictated by : CONSTANTIN GREENE MD This examination was interpreted and the report reviewed and electronically signed by: CONSTANTIN GREENE MD on Jan 19 2024 11:04AM [facility] DIVISION OF RADIOLOGY * * *Final Report* * * DATE OF EXAM: Jan 19 2024 8:50AM JIX [id number] - XR CHEST 2V FRONTAL/LAT / PROCEDURE REASON: multiple diagnoses * * * * Physician Interpretation * * * * EXAMINATION: CHEST RADIOGRAPH (2 VIEW FRONTAL & LATERAL) Clinical History: Disorder of artery or arteriole (HCC) Pre-operative cardiovascular examination Atrial fibrillation, unspecified type ([facility]) Mitral valve disorder M: [id number]_6 Comparison: prior chest radiograph dated 03/07/2016 RESULT: Lines, tubes, and devices: Left chest pacemaker with leads over right atrium and right ventricle. Lungs and pleura: Scattered linear opacities probably atelectasis. No focal consolidations or effusions. No pneumothorax. Cardiomediastinal silhouette: Cardiac silhouette within normal limits. Other: Mild degenerative changes of the thoracic spine. DIVISION OF RADIOLOGY Provider, [facility] Clau garcía [place] - 01/19/2024 * * *Final Report* * [...] the thoracic spine. IMPRESSION IMPRESSION: See Result. Mechatronics Engineer: CHRISTOFER Transcribe Date/Time: Jan 19 2024 11:03A Dictated by : CONSTANTIN GREENE MD This examination was interpreted and the report reviewed and electronically signed by: CONSTANTIN GREENE MD on Jan 19 2024 11:04AM EST [facility] Radiology Study observation (narrative) [facility] XR Chest PA and LateralOrder ed By: Ccf Provider on 01-19-2024 [facility] aPTT PPPon 01-19-2024 aPTT Coag (PPP) [Time] 30.8 s Normal 23.0-32.4 Cl [facility] Comment on above: Order Comment: Speci men Type: BLOOD SPECIMENOrdering Facility: [facility] Address: [address] [place] [address] Performed By: #### 3 4528-0, 34293-3 ####[facility] LABCLIA [id number] [place] [address] [place] CNPNon 12-06-2023 CNPN Normal [facility] XR CHEST PA+LAT 2 VIEWSon XR CHEST PA+LAT 2 VIEWS EXAMINATION: XR CHEST PA+LAT 2 VIEWS 07/10/2023 04:07 PM CLINICAL HISTORY: Dyspnea ASSOCIATED DIAGNOSIS: Dyspnea, unspecified type ORDERING PROVIDER: CHELSIE NIEVES TECHNOLOGISTS NOTE: COMPARISON: None FINDINGS: Cardiac device: [...] permanent cardiac pacemaker. MACRO: None Normal [facility] XR Chest PA and Lateralon EXAMINATION: XR CHES T PA+LAT 2 VIEWS 07/10/2023 04:07 PM CLINICAL HISTORY: Dyspnea ASSOCIATED DIAGNOSIS: Dyspnea, unspecified type ORDERING PROVIDER: CHELSIE NIEVES TECHNOLOGISTS NOTE: COMPARISON: None FINDINGS: Cardiac device: [...] 2. Dual-chamber permanent cardiac pacemaker. MACRO: None RADIOLOGY Henri Sahni, DO - 07/10/2023 EXAMINATION: XR CHEST PA+LAT 2 VIEWS 07/10/2023 04:07 PM CLINICAL HISTORY: Dyspnea ASSOCIATED DIAGNOSIS: Dyspnea, unspecified type ORDERING PROVIDER: CHELSIE NIEVES TECHNOLOGISTS NOTE: COMPARISON: None FINDINGS: Cardiac device: [...] 2. Dual-chamber permanent cardiac pacemaker. MACRO: None [employer] Work Phone: Radiology Study observation (narrative) [employer] Work Phone: XR Chest PA and LateralOrder ed By: Henri Sahni on 07-10-2023 [employer] Work Phone: Basophil percentageOrdered B y: Jerardo Millan on 03-29-2023 Basophil percentage < 1.0 mg/dL 0.70-1.30 [facility] No Panel InformationOrdered By: Jerardo Millan on 03-29-2023 Bedside Estimated GFR (eGFR) > 60.0000 mL/min >60 [facility] Basophil percentageOrdered B y: Sherif Kiser on 03-28-2023 Chloride [Moles/Vol] 109 mmol/L 98-107 [facility] Glucose [Mass/Vol] 81 mg/dL 74-106 [facility] Potassium [Moles/Vol] 4.2 mmol/L 3.5-5.1 [facility] Sodium [Moles/Vol] 142 mmol/L 136-145 [facility] WBC (Bld) [#/Vol] 7.0 10*3/uL 4.4-11.0 [facility] Blood erythrocytes count (nu mber/volume)Ordered By: Sherif Kiser on 03-28-2023 RBC (Bld) [#/Vol] 4.85 10*6/uL 4.6-6.2 [facility] Blood hemoglobin measurement (mass/volume)Ordered By: Sherif Kiser on 03-28-2023 Hemoglobin (Bld) [Mass/Vol] 14.3 g/dL 13.0-16.5 [facility] Blood platelet mean volumeOr dered By: Sherif Kiser on 03-28-2023 Platelet mean volume (Bld) [Entitic vol] 10.7 fL 6.2-12.0 [facility] Determination of erythrocyte mean corpuscular volume (MCV)Ordered By: Sherif Kiser on 03-28-2023 MCV (RBC) [Entitic vol] 89.3 fL 80-94 [facility] Hematocrit Auto (Bld) [Volum e fraction]Ordered By: Sherif Kiser on 03-28-2023 Hematocrit (Bld) [Volume fraction] 43.3 % 40-54 [facility] Laboratory - Chemistry and C hemistry - challengeOrdered By: Sherif Kiser on 03-28-2023 CO2 [Moles/Vol] 27.0 mmol/L 21.0-32.0 [facility] Urea nitrogen/Creatinine [Mass ratio] 25.0 mg/mg 10-20 [facility] - Hematology and Cell countsOrdered By: Sherif Kiser on 03-28-2023 Erythrocyte distribution width (RBC) [Entitic vol] 43.2 fL 35.1-43.9 [facility] Erythrocyte distribution width (RBC) [Ratio] 13.2 % 11.6-14.6 [facility] MCH (RBC) [Entitic mass] 29.5 pg 27.0-32.0 [facility] MCHC Auto (RBC) [Mass/Vol]Or dered By: Sherif Kiser on 03-28-2023 MCHC (RBC) [Mass/Vol] 33.0 g/dL 32-36 [facility] No Panel InformationOrdered By: Sherif Kiser on 03-28-2023 Estimated GFR (MDRD) Amer 92 mL/min >60 [facility] Comment on above: GFR Calc Estimated GFR (MDRD) Non-Af Amer 76 mL/min >60 [facility] Comment on above: Non- GFR Calc No Panel InformationOrdered By: Jerardo Millan on 03-28-2023 Nasal Screen MRSA/MSSA [facility] Platelets bldOrdered By: Sherif Kiser on 03-28-2023 Platelets (Bld) [#/Vol] 222 10*3/uL 150-450 [facility] Serum or plasma calcium filiberto urement (mass/volume)Ordered By: Sherif Kiser on 03-28-2023 Calcium [Mass/Vol] 9.0 mg/dL 8.5-10.1 [facility] Serum or plasma creatinine m easurement (mass/volume)Ordered By: Sherif Kiser on 03-28-2023 Creatinine [Mass/Vol] 1.04 mg/dL 0.70-1.30 [facility] Comment on above: The validity of the calculated GFR & GFRAA in patients over 70 years has not been determined. Clinical correlation is essential. Serum or plasma urea nitroge n measurement (mass/volume)Ordered By: Sherif Kiser on 03-28-2023 Urea nitrogen [Mass/Vol] 26 mg/dL 7-18 [facility] Thin prep Papanicolaou smear with manual screeningOrdered By: Sherif Kiser on 03-28-2023 Thin prep Papanicolaou smear with manual screening 6 5-15 [facility] Absolute lymphocyte countOrd ered By: Jerardo Millan on 12-20-2022 Lymphocytes Auto (Unsp spec) [#/Vol] 1.71 10*3/uL 0.83-4.51 [facility] Basophil percentageOrdered B y: Jerardo Millan on 12-20-2022 Basophils/100 WBC (Bld) 0.8 % 0-1 [facility] Eosinophils/100 WBC (Bld) 0.8 % 0-5 [facility] Neutrophils (Bld) [#/Vol] 5.8 10*3/uL 2.0-7.7 [facility] Neutrophils/100 WBC (Bld) 68.6 % 47-70 [facility] WBC (Bld) [#/Vol] 8.5 10*3/uL 4.4-11.0 [facility] Basophil percentageOrdered B y: Juana Rodriguez on 12-20-2022 Chloride [Moles/Vol] 112 mmol/L 98-107 [facility] Glucose [Mass/Vol] 91 mg/dL 74-106 [facility] Potassium [Moles/Vol] 4.1 mmol/L 3.5-5.1 [facility] Sodium [Moles/Vol] 143 mmol/L 136-145 [facility] Blood erythrocytes count (nu mber/volume)Ordered By: Jerardo Millan on 12-20-2022 RBC (Bld) [#/Vol] 4.27 10*6/uL 4.6-6.2 [facility] Blood hemoglobin measurement (mass/volume)Ordered By: Jerardo Millan on 12-20-2022 Hemoglobin (Bld) [Mass/Vol] 12.9 g/dL 13.0-16.5 [facility] Blood lymphocytes/100 leukoc ytesOrdered By: Jerardo Millan on 12-20-2022 Lymphocytes/100 WBC (Bld) 20.1 % 19-41 [facility] Blood monocytes/100 leukocyt esOrdered By: Jerardo Millan on 12-20-2022 Monocytes/100 WBC (Bld) 9.5 % 0-10 [facility] Blood platelet mean volumeOr dered By: Jerardo Millan on 12-20-2022 Platelet mean volume (Bld) [Entitic vol] 11.5 fL 6.2-12.0 [facility] Determination of erythrocyte mean corpuscular volume (MCV)Ordered By: Jerardo Millan on 12-20-2022 MCV (RBC) [Entitic vol] 91.6 fL 80-94 [facility] Hematocrit Auto (Bld) [Volum e fraction]Ordered By: Jerardo Millan on 12-20-2022 Hematocrit (Bld) [Volume fraction] 39.1 % 40-54 [facility] - Chemistry and C hemistry - challengeOrdered By: Juana Rodriguez on 12-20-2022 CO2 [Moles/Vol] 29.0 mmol/L 21.0-32.0 [facility] Urea nitrogen/Creatinine [Mass ratio] 20.7 mg/mg 10-20 [facility] - Hematology and Cell countsOrdered By: Jerardo Millan on 12-20-2022 Erythrocyte distribution width (RBC) [Entitic vol] 46.1 fL 35.1-43.9 [facility] Erythrocyte distribution width (RBC) [Ratio] 13.6 % 11.6-14.6 [facility] Immature granulocytes/100 WBC (Bld) 0.200 % 0.0-0.9 [facility] Comment on above: IG% - Immature Granu locytes (promyelocytes, myelocytes and metamyelocytes) > 1% indicates that a LEFT SHIFT is Present. MCH (RBC) [Entitic mass] 30.2 pg 27.0-32.0 [facility] Nucleated RBC/100 WBC (Bld) [Ratio] 0 % 0-5 [facility] MCHC Auto (RBC) [Mass/Vol]Or dered By: Jerardo Millan on 12-20-2022 MCHC (RBC) [Mass/Vol] 33.0 g/dL 32-36 [facility] No Panel InformationOrdered By: Juana Rodriguez on 12-20-2022 Estimated Creatinine Clearance Calc 87.86 ml/min [facility] Estimated GFR (MDRD) Amer 106 mL/min >60 [facility] Comment on above: GFR Calc Estimated GFR (MDRD) Non-Af Amer 88 mL/min >60 [facility] Comment on above: Non- GFR Calc Platelets bldOrdered By: Wang Millan on 12-20-2022 Platelets (Bld) [#/Vol] 194 10*3/uL 150-450 [facility] Serum or plasma calcium filiberto urement (mass/volume)Ordered By: Juana Rodriguez on 12-20-2022 Calcium [Mass/Vol] 8.8 mg/dL 8.5-10.1 [facility] Serum or plasma creatinine m easurement (mass/volume)Ordered By: Juana Rodriguez on 12-20-2022 Creatinine [Mass/Vol] 0.92 mg/dL 0.70-1.30 [facility] Comment on above: The validity of the calculated GFR & GFRAA in patients over 70 years has not been determined. Clinical correlation is essential. Serum or plasma urea nitroge n measurement (mass/volume)Ordered By: Juana Rodriguez on 12-20-2022 Urea nitrogen [Mass/Vol] 19 mg/dL 7-18 [facility] Thin prep Papanicolaou smear with manual screeningOrdered By: Juana Rodriguez on 12-20-2022 Thin prep Papanicolaou smear with manual screening 2 5-15 [facility] Basophil percentageOrdered B y: Asad Mcdonough on 12-19-2022 Bilirubin [Mass/Vol] 0.60 mg/dL 0.20-1.00 [facility] Comment on above: For patients on eltr ombopag therapy, use of Dimension [place] TBIL is not recommended. Protein [Mass/Vol] 7.3 g/dL 6.4-8.2 [facility] Laboratory - Chemistry and C hemistry - challengeOrdered By: Asad Mcdonough on 12-19-2022 ALP [Catalytic activity/Vol] 53 U/L 45-117 [facility] ALT [Catalytic activity/Vol] 31 U/L 16-61 [facility] Globulin (S) [Mass/Vol] 3.1 g/dL 2.2-4.2 [facility] Serum or plasma albumin filiberto urement (mass/volume)Ordered By: Asad Mcdonough on 12-19-2022 Albumin [Mass/Vol] 4.2 g/dL 3.2-5.0 [facility] Serum or plasma albumin/glob ulin mass ratioOrdered By: Asad Mcdonough on 12-19-2022 Albumin/Globulin [Mass ratio] 1.4 {ratio} 0.9-2.4 [facility] Thin prep Papanicolaou smear with manual screeningOrdered By: Asad Ceasar on 12-19-2022 Thin prep Papanicolaou smear with manual screening 14 U/L 1537 [facility] COVID-19/INFLUENZA A,B MOLEC ULARon 03-07-2021 SARS-CoV-2 (COVID-19) Ab IA Ql SARS-COV-2 (ROXIE): Not Detected INFLUENZA A (ROXIE): Not Detected INFLUENZA B (ROXIE): Not Detected Normal Not Detected [facility] Comment on above: Order Comment: This test [...] at the following links: For Healthcare Providers: https://www.fda.gov/media/173420/download For Patients: https://www.fda.gov/media/541020/download Performed By: #### L [id number] #### [facility] [address] [place], [place] [address] [address]iki Arreguin M[address] [id number] CT HEAD OR BRAIN WITHOUT CON TRASTon [...] ID: [id number] Dictated by: SHALINI KHAN on MonMar 07, 2021 3:32:39 PM EST Transcribed by: SHALINI KHAN on [place] Mar 07, 2021 3:32:39 PM EST Finalized by: SHALINI KHAN on [place] Mar 07, 2021 3:32:39 PM EST Normal [facility] Comment on above: Order Comment: Injur y/Trauma or Illness?:Illness/Other How long have you had these symptoms (acute/chronic)?:Acute Reason for exam?:dizziness Type of Exam?:Initial Additional signs and symptoms?:n/a MAGNESIUMon 12-09-2020 Magnesium [Mass/Vol] 2.2 mg/dL Normal 1.6-2.6 [facility] Comment on above: Performed By: #### M GO #### [facility] (DEFAULT) [address] [address] T4 FREEon 12-09-2020 Free T4 [Mass/Vol] 1.37 ng/dL Normal 0.89-1.76 [facility] Comment on above: Performed By: #### F T4, TSH #### [facility] (DEFAULT) [address] [address] TSHon 12-09-2020 TSH 0.649 uIU/mL Normal 0.550-4.780 [facility] Comment on above: Performed By: #### F T4, TSH #### [facility] (DEFAULT) [address] [address] ALK PHOSPHATASEon 06-02-2020 ALP [Catalytic activity/Vol] 47 U/L Normal 32-126 [facility] Comment on above: Performed By: #### A LP #### [facility] (DEFAULT) [address] [place] [address] CHEM 6 (LYTES, BUN CREA)on 0 06-02-2020 Anion gap [Moles/Vol] 12 mmol/L Normal 7-17 [facility] Comment on above: Performed By: #### C HM6, ALTO, HFP, MGO #### [facility] (DEFAULT) [address] [place] [address] Chloride [Moles/Vol] 107 mmol/L Normal 98-108 [facility] Comment on above: Performed By: #### C HM6, ALTO, HFP, MGO #### [facility] (DEFAULT) [address] [place] [address] CO2 [Moles/Vol] 27 mmol/L Normal 22-[address] [facility] Comment on above: Performed By: #### C HM6, ALTO, HFP, MGO #### [facility] (DEFAULT) [address] [place] [address] Creatinine [Mass/Vol] 1.10 mg/dL Normal 0.70-1.30 [facility] Comment on above: Performed By: #### C HM6, ALTO, HFP, MGO #### [facility] (DEFAULT) [address] [place] [address] EST GFR, >=60 Normal >=60 [facility] Comment on above: Performed By: #### C HM6, ALTO, HFP, MGO #### U [facility] (DEFAULT) [address] [place] [address] EST GFR,Non >=60 Normal >=60 [facility] Comment on above: Performed By: #### C HM6, ALTO, HFP, MGO #### [facility] (DEFAULT) [address] [place] [address] Potassium [Moles/Vol] 4.4 mmol/L Normal 3.5-5.0 [facility] Comment on above: Performed By: #### C HM6, ALTO, HFP, MGO #### U [facility] (DEFAULT) [address] [place] [address] Sodium [Moles/Vol] 142 mmol/L Normal 133-143 [facility] Comment on above: Performed By: #### C HM6, ALTO, HFP, MGO #### U [facility] (DEFAULT) [address] [place] [address] Urea nitrogen [Mass/Vol] 21 mg/dL Normal 7-22 [facility] Comment on above: Performed By: #### C HM6, ALTO, HFP, MGO #### U [facility] (DEFAULT) [address] [place] [address] Urea nitrogen/Creatinine [Mass ratio] 19 mg/mg Normal [facility] Comment on above: Performed By: #### C HM6, ALTO, HFP, MGO #### [facility] (DEFAULT) [address] [place] [address] HEPATIC FUNCTION PANELon Albumin [Mass/Vol] 4.6 g/dL Normal 3.5-5.0 [facility] Comment on above: Performed By: #### C HM6, ALTO, HFP, MGO #### U [facility] (DEFAULT) [address] [place] [address] ALP [Catalytic activity/Vol] 46 U/L Normal 32-126 [facility] [facility] Comment on above: Performed By: #### C HM6, ALTO, HFP, MGO #### U [facility] (DEFAULT) [address] [place] [address]65 ALT [Catalytic activity/Vol] 30 U/L Normal 10-52 [facility] Comment on above: Performed By: #### C HM6, ALTO, HFP, MGO #### [facility] (DEFAULT) [address] [place] [address]012 AST [Catalytic activity/Vol] 25 U/L Normal 14-40 [facility] Comment on above: Performed By: #### C HM6, ALTO, HFP, MGO #### [facility] (DEFAULT) [address] [place] [address]790 Bilirubin [Mass/Vol] 0.5 mg/dL Normal <1.5 [facility] Comment on above: Performed By: #### C HM6, ALTO, HFP, MGO #### [facility] (DEFAULT) [address] [place] [address]379 Bilirubin.indirect [Mass/Vol] 0.1 mg/dL Normal <0.3 [facility] Comment on above: Performed By: #### C HM6, ALTO, HFP, MGO #### U [facility] (DEFAULT) [address] [place] [address] Protein [Mass/Vol] 6.8 g/dL Normal 6.4-8.3 [facility] Comment on above: Performed By: #### C HM6, ALTO, HFP, MGO #### [facility] (DEFAULT) [address] [place] [address] MAGNESIUMon 06-02-2020 Magnesium [Mass/Vol] 2.3 mg/dL Normal 1.6-2.6 [facility] Comment on above: Performed By: #### C HM6, ALTO, HFP, MGO #### [facility] (DEFAULT) [address] [place] [address]200 T4 FREEon 06-02-2020 Free T4 [Mass/Vol] 1.24 ng/dL Normal 0.89-1.76 [facility] Comment on above: Performed By: #### F T4 #### [facility] (DEFAULT) [address] [address] TSHon 06-02-2020 TSH 0.538 uIU/mL Low 0.550-4.780 [facility] Comment on above: Performed By: #### T SH #### [facility] (DEFAULT) [address] [place] [address]24 XR CHEST PA AND LATERALon XR CHEST PA AND LATERAL EXAM: XR CHEST P A AND LATERAL, 06/02/2020 12:02 PM CLINICAL INDICATIONS: [...] appears unchanged from December 01, 2017. Normal [facility] ECHOCARDIOGRAMon 05-26-2020 Echocardiography ? Technically [...] is no pericardial effusion present. Facility [facility] Patient Information Patient Name Tre Quiñones Sex Male Indication for Exam Priority: Routine [...] Reading Providers Reading Role Read Date Vineet Borwn MD, PhD Fellow - Reading 05/26/2020 Eleuterio Santillan MD Echo [place] 05/26/2020 Wall Scoring Score Index: 1.00 The [...] peak gradient 7 mmHG DI (Vmax) 0.82 SMA (continuity Vmax) 2.57 cm2 SAM index (continuity [...] include patient body habitus. Imaging system used: 123ContactForm. Indications for study: dyspnea. Exam Details Performed Procedure Technologist Supporting Staff Performing Physician ECHOCARDIOGRAM W/O 3D W/CONTRAST Samanta Amin RDCS Appointment Date/Status Modality Department 05/26/2020 Arrived ECHO TESTING, [facility] ECHOCARDIOGRAPHY ROSS (more content not included)... Abnormal [facility] NUC MYOCARD PERF STRESS MIBI [...] Intravenous device wires are noted. Facility [facility] Patient Information Patient Name Tre Quiñones Sex Male Indication for Exam Priority: Routine [...] Role Read Date Jimenez Burrell MD ECG [place], SPECT [place], Fellow - Reading 05/26/2020 Min Bae MD Test Box Builder, ECG [place], SPECT [place] 05/26/2020 Stress Measurements Baseline Vitals-Supine Baseline HR [...] intensity. The (more content not included)... Normal [facility] Office Visiton 09-07-2016 Documentation of current medications (procedure) Done Invalid Interpretation Code [facility] Work Phone: Tobacco smoking status NHIS Former smoker [facility] Work Phone: Tobacco use CPHS Former smoker Invalid Interpretation Code [facility] Work Phone: Lab Report: BMPon 11-30-2012 Calcium 9.1 mg/dL Normal 8.5-10.[address] [facility] Work Phone: Chloride 105 mmol/L Normal 98-[address] [facility] Work Phone: Creatinine 0.8 mg/dL Normal 0.8-1.[address] [facility] Work Phone: Glucose 80 mg/dL Normal 70-110 [facility] Work Phone: Glucose [Mass/Vol] 80 mg/dL Normal 70-110 [facility] Work Phone: Potassium 4.2 mmol/L Normal 3.5-5.[address] [facility] Work Phone: Sodium 141 mmol/L Normal 136-[address] [facility] Work Phone: Urea nitrogen 21 mg/dL High 7-18 [facility] Work Phone: Lab Report: BTNPon 3 BTNP 26.9 pg/mL Normal <100 [facility] Work Phone: GE use only - for LinkLogic import when terms are not otherwise specified 26.9 pg/mL Normal <[address] [facility] Work Phone: Lab Report: CBCon 11-30-2012 Erythrocytes (RBC) 4.97 10*6/uL Normal 4.6-6.[address] [facility] Work Phone: Hematocrit (Bld) [Volume fraction] 42.8 % Normal 40-54 [facility] Work Phone: Hematocrit (HCT) 42.8 % Normal 40-54 [facility] Work Phone: Hemoglobin (HGB) 14.6 g/dL Normal 13.0-16.5 [facility] Work Phone: Platelets 187 10*3/mm3 Normal 150-[address] [facility] Work Phone: Platelets (Bld) [#/Vol] 187 10*3/mm3 Normal 150-[address] [facility] Work Phone: RBC (Bld) [#/Vol] 4.97 10*6/uL Normal 4.6-6.2 [facility] Work Phone: WBC (Bld) [#/Vol] 6.8 10*3/uL Normal 4.4-11.0 [facility] Work Phone: WBC (Leukocytes) 6.8 10*3/uL Normal 4.4-11.0 [facility] Work Phone: Lab Report: TSHon 11-30-2012 Thyroid stimulating hormone (TSH) 0.96 u[iU]/mL Normal 0.358-3.[address] [facility] Work Phone: Office Visit: [facility] 12-01-19 13 Documentation of current medications (procedure) Done Invalid Interpretation Code [facility] Work Phone: Replaced Document: Chavo KAM Observationson 11-30-2012 EKG QRS axis -4 deg [facility] Work Phone: electrocardiogram interpretation Sinus Rhythm WITHIN NORMAL LIMITS Invalid Interpretation Code [facility] Work Phone: Interpretation Sinus Rhythm WITHIN NORMAL LIMITS [facility] Work Phone: P Hurley 41 deg [facility] Work Phone: P wave axis, electrocardiogram 41 deg Invalid Interpretation Code [facility] Work Phone: WY Interval 184 ms [facility] Work Phone: W[place] interval, electrocardiogram 184 ms Invalid Interpretation Code [facility] Work Phone: Pulse (Heart Rate) 398 ms Invalid Interpretation Code [facility] Work Phone: Pulse (Heart Rate) 78 /min Invalid Interpretation Code [facility] Work Phone: QRS axis, electrocardiogram -4 deg Invalid Interpretation Code [facility] Work Phone: QRS Duration 98 ms [facility] Work Phone: QRS duration, electrocardiogram 98 ms Invalid Interpretation Code [facility] Work Phone: QT Interval new path ms [facility] Work Phone: QT interval, electrocardiogram new path ms Invalid Interpretation Code [facility] Work Phone: T Hurley 22 deg [facility] Work Phone: T wave axis, electrocardiogram 22 deg Invalid Interpretation Code 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 Work Phone: Anion gap [Moles/Vol] 5 mmol/L [facility] Work Phone: BUN/Creatinine Ratio 14.4 mg/mg Invalid Interpretation Code [facility] Work Phone: CO2 29.0 mmol/L Invalid Interpretation Code [facility] Work Phone: CO2 (BldV) [Partial pressure] 29.0 mmol/L [facility] Work Phone: MCH 30.8 pg Invalid Interpretation Code [facility] Work Phone: MCH (RBC) [Entitic mass] 30.8 [address] [facility] Work Phone: MCV 86.8 fL Invalid Interpretation Code 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 Work Phone: Vital Signs Date Time Vital Sign Value Performing Clinician Facility 01-13-2025 13:46-0400 Body height 182.88 cm [facility] 01-13-2025 13:46-0400 Body mass index (BMI) [Ratio] 43.7 kg/m2 [facility] 01-13-2025 13:46-0400 Body weight 146.05 kg [facility] 01-13-2025 13:46-0400 Diastolic blood pressure 75 mm[Hg] [facility] 01-13-2025 13:46-0400 Heart rate 60 /min [facility] 01-13-2025 13:46-0400 Respiratory rate 16 /min [facility] 01-13-2025 13:46-0400 Systolic blood pressure 122 mm[Hg] [facility] 12-16-2024 15:23-0400 Body height 183 cm Brittany Bundy MD Work Phone: [facility] 12-16-2024 15:23-0400 Body height 182.88 cm Brittany Bundy MD Work Phone: [facility] 12-16-2024 15:23-0400 Body mass index (BMI) [Ratio] 42.2 kg/m2 Brittany Bundy MD Work Phone: [facility] 12-16-2024 15:23-0400 Body weight 141 kg Brittany Bundy MD Work Phone: [facility] 12-16-2024 15:23-0400 Body weight 140.62 kg Brittany Bundy MD Work Phone: [facility] 12-16-2024 15:23-0400 Diastolic blood pressure 66 mm[Hg] Brittany Bundy MD Work Phone: [facility] 12-16-2024 15:23-0400 HGHTCHNVIS Brittany Bundy MD Work Phone: [facility] 12-16-2024 15:23-0400 Systolic blood pressure 114 mm[Hg] Brittany Bundy MD Work Phone: [facility] 12-16-2024 15:23-0400 SILVIA Bundy MD Work Phone: [facility] 12-12-2024 11:15-0400 Diastolic blood pressure 90 mm[Hg] Mri Bore/1.5t) [facility] 12-12-2024 11:15-0400 Heart rate 70 /min Mri Bore/1.5t) [facility] 12-12-2024 11:15-0400 Respiratory rate 15 /min Mri Bore/1.5t) [facility] 12-12-2024 11:15-0400 SaO2% (BldA) [Mass fraction] 96 % Mri Bore/1.5t) [facility] 12-12-2024 11:15-0400 Systolic blood pressure 126 mm[Hg] Mri Bore/1.5t) [facility] 11-01-2024 08:48-0400 Diastolic blood pressure 64 mm[Hg] Denny Cifuentes MD Work Phone: [facility] 11-01-2024 08:48-0400 Heart rate 60 /min Denny Cifuentes MD Work Phone: [facility] 11-01-2024 08:48-0400 Systolic blood pressure 129 mm[Hg] Denny Kitchen Work Phone: [facility] 09-18-2024 11:55-0400 Body height 182.[address] Omer Wray MD Work Phone: [facility] 09-18-2024 11:55-0400 Body mass index (BMI) [Ratio] 44.4 kg/m2 Dr. Omer Wray MD Work Phone: [facility] 09-18-2024 11:55-0400 Body weight 148.[address] Omer Wray MD Work Phone: [facility] 09-18-2024 11:55-0400 Diastolic blood pressure 76 mm[Hg] Dr. Omer Wray MD Work Phone: [facility] 09-18-2024 11:55-0400 Heart rate 66 /min Dr. Omer Wray MD Work Phone: [facility] 09-18-2024 11:55-0400 Respiratory rate 20 /min Dr. Omer Wray MD Work Phone: [facility] 09-18-2024 11:55-0400 Systolic blood pressure 136 mm[Hg] Dr. Omer Wray MD Work Phone: [facility] 08-13-2024 13:06-0400 Body temperature 98.1 [degF] Dr. Omer Wray MD Work Phone: [facility] 08-13-2024 13:06-0400 Diastolic blood pressure 55 mm[Hg] Dr. Omer Wray MD Work Phone: [facility] 08-13-2024 13:06-0400 Heart rate 60 /min Dr. Omer Wray MD Work Phone: [facility] 08-13-2024 13:06-0400 Respiratory rate 15 /min Dr. Omer Wray MD Work Phone: [facility] 08-13-2024 13:06-0400 SaO2% (BldA) [Mass fraction] 96 % Dr. Omer Wray MD Work Phone: [facility] 08-13-2024 13:06-0400 Systolic blood pressure 141 mm[Hg] Dr. Omer Wray MD Work Phone: [facility] 08-13-2024 11:38-0400 Body mass index (BMI) [Ratio] 42.8 kg/m2 Dr. Omer Wray MD Work Phone: [facility] 08-13-2024 11:38-0400 Body weight 143.[address] Omer Wray MD Work Phone: [facility] 02-06-2024 08:54-0400 Body height 182.9 cm Liz Madsen APRN.CNP Work Phone: [facility] 02-06-2024 08:54-0400 Body mass index (BMI) [Ratio] 43.67 kg/m2 Andegoni Sandalakis BERRY PLANTER.HAIRSPRING TRUER Work Phone: [facility] 02-06-2024 08:54-0400 Body temperature 99.1 [degF] Andegoni Sandalakis BERRY PLANTER.HAIRSPRING TRUER Work Phone: [facility] 02-06-2024 08:54-0400 Body weight 146.06 kg Andegoni Sandalakis BERRY PLANTER.HAIRSPRING TRUER Work Phone: [facility] 02-06-2024 08:54-0400 Diastolic blood pressure 56 mm[Hg] Andegoni Sandalakis BERRY PLANTER.HAIRSPRING TRUER Work Phone: [facility] 02-06-2024 08:54-0400 Heart rate 70 /min Andegoni Sandalakis BERRY PLANTER.HAIRSPRING TRUER Work Phone: [facility] 02-06-2024 08:54-0400 Respiratory rate 16 /min Andegoni Sandalakis BERRY PLANTER.HAIRSPRING TRUER Work Phone: [facility] 02-06-2024 08:54-0400 SaO2% (BldA) [Mass fraction] 95 % Andegoni Sandalakis BERRY PLANTER.HAIRSPRING TRUER Work Phone: [facility] 02-06-2024 08:54-0400 Systolic blood pressure 105 mm[Hg] Andegoni Sandalakis BERRY PLANTER.HAIRSPRING TRUER Work Phone: [facility] 01-27-2024 07:29-0400 SaO2% (BldA) [Mass fraction] 100 % OMER WRAY [facility] Comment on above: Order Comment: Specimen Type: ARTERIAL B LOOD SPECIMENOrdering Facility: [facility] Address: [address] [place] [address] Performed By: #### A LLBG ####[facility] LABCLIA [id number] [address] [place] 01-27-2024 03:32-0400 SaO2% (BldA) [Mass fraction] 99 % OMER [facility] Comment on above: Order Comment: Specimen Type: ARTERIAL B LOOD SPECIMENOrdering Facility: [facility] Address: [address] [place] [address] Performed By: #### A LLBG ####[facility] LABCLIA [id number] [address] [place] 01-27-2024 01:34-0400 SaO2% (BldA) [Mass fraction] 100 % OMER [facility] Comment on above: Order Comment: Specimen Type: ARTERIAL B LOOD SPECIMENOrdering Facility: [facility] Address: [address] [place] [address] Performed By: #### A LLBG ####[facility] LABCLIA [id number] [address] [place] 01-26-2024 23:24-0400 SaO2% (BldA) [Mass fraction] 94 % OMER [facility] Comment on above: Order Comment: Specimen Type: ARTERIAL B LOOD SPECIMENOrdering Facility: [facility] Address: [address] [place] [address] Performed By: #### A LLBG ####[facility] LABCLIA [id number] [address] [place] 01-26-2024 19:15-0400 SaO2% (BldA) [Mass fraction] 99 % OMER [facility] Comment on above: Order Comment: Specimen Type: ARTERIAL B LOOD SPECIMENOrdering Facility: [facility] Address: [address] [place] [address] Performed By: #### A LLBG ####[facility] LABCLIA [id number] [place] [id number] [place] 01-26-2024 15:19-0400 SaO2% (BldA) [Mass fraction] 100 % OMER [facility] Comment on above: Order Comment: Specimen Type: ARTERIAL B LOOD SPECIMENOrdering Facility: [facility] Address: [address] [place], [place] [id number] Performed By: #### A LLBG ####[facility] LABCLIA [id number] [address] [address] [place] 01-26-2024 11:20-0400 SaO2% (BldA) [Mass fraction] 99 % OMER [facility] Comment on above: Order Comment: Specimen Type: ARTERIAL B LOOD SPECIMENOrdering Facility: [facility] Address: [address] [place] [address] Performed By: #### A LLBG ####[facility] LABIA [id number] [place] [id number] [place] 01-26-2024 07:28-0400 SaO2% (BldA) [Mass fraction] 99 % OMER [facility] Comment on above: Order Comment: Specimen Type: ARTERIAL B LOOD SPECIMENOrdering Facility: [facility] Address: [address] [place], [place] [id number] Performed By: #### A LLBG ####[facility] LABIA [id number] [address] [address] [place] 01-26-2024 03:31-0400 SaO2% (BldA) [Mass fraction] 100 % OMER [facility] Comment on above: Order Comment: Specimen Type: ARTERIAL B LOOD SPECIMENOrdering Facility: [facility] Address: [address] [place], [place] [id number] Performed By: #### A LLBG ####[facility] LABIA [id number] [address] [address] [place] 01-26-2024 00:24-0400 SaO2% (BldA) [Mass fraction] 100 % OMER [facility] Comment on above: Order Comment: Specimen Type: ARTERIAL B LOOD SPECIMENOrdering Facility: [facility] Address: [address] [place] [address] Performed By: #### A LLBG ####[facility] LABCLIA [id number] [address] [address] [place] 01-25-2024 21:27-0400 SaO2% (BldA) [Mass fraction] 99 % OMER NILS [facility] Comment on above: Order Comment: Specimen Type: ARTERIAL B LOOD SPECIMENOrdering Facility: [facility] Address: [address] [place], [place] [id number] Performed By: #### A LLBG ####[facility] LABCLIA [id number] [place] [id number] [place] 01-25-2024 19:23-0400 SaO2% (BldA) [Mass fraction] 99 % OMER [facility] Comment on above: Order Comment: Specimen Type: ARTERIAL B LOOD SPECIMENOrdering Facility: [facility] Address: [address] [place] [address] Performed By: #### A LLBG ####[facility] LABCLIA [id number] [place] [id number] [place] 01-25-2024 18:17-0400 SaO2% (BldA) [Mass fraction] 98 % OMER [facility] Comment on above: Order Comment: Specimen Type: ARTERIAL B LOOD SPECIMENOrdering Facility: [facility] Address: [address] [place], [place] [id number] Performed By: #### A LLBG ####[facility] LABIA [id number] [address] [address] [place] 01-25-2024 15:49-0400 SaO2% (BldA) [Mass fraction] 100 % [facility] Comment on above: Order Comment: Specimen Type: ARTERIAL B LOOD SPECIMENOrdering Facility: [facility] Address: [address] [place], [place] [id number] Performed By: #### A LLBG ####[facility] LABIA [id number] [address] [address] [place] 01-25-2024 13:24-0400 SaO2% (BldA) [Mass fraction] 100 % OMER NILS [facility] Comment on above: Order Comment: Specimen Type: ARTERIAL B LOOD SPECIMENOrdering Facility: [facility] Address: [address] [place], [place] [id number] Performed By: #### A LLBG ####[facility] [id number] [place] [id number] [place] 01-25-2024 11:23-0400 SaO2% (BldA) [Mass fraction] 99 % OMER NILS [facility] Comment on above: Order Comment: Specimen Type: ARTERIAL B LOOD SPECIMENOrdering Facility: [facility] Address: [address] [place], [place] [id number] Performed By: #### A LLBG ####[facility] [id number] [place] [id number] [place] 01-25-2024 08:28-0400 SaO2% (BldA) [Mass fraction] 99 % OMER NILS [facility] Comment on above: Order Comment: Specimen Type: ARTERIAL B LOOD SPECIMENOrdering Facility: [facility] Address: [address] [place], [place] [id number] Performed By: #### A LLBG ####[facility] [id number] [address] [address] [place] 01-25-2024 05:12-0400 SaO2% (BldA) [Mass fraction] 99 % OMER [facility] Comment on above: Order Comment: Specimen Type: ARTERIAL B LOOD SPECIMENOrdering Facility: [facility] Address: [address] [place], [place] [id number] Performed By: #### A LLBG ####[facility] LABIA [id number] [place] [id number] [place] 01-25-2024 03:44-0400 SaO2% (BldA) [Mass fraction] 99 % OMER [facility] Comment on above: Order Comment: Specimen Type: ARTERIAL B LOOD SPECIMENOrdering Facility: [facility] Address: [address] [place], [place] [id number] Performed By: #### A LLBG ####[facility] [id number] [place] [id number] [place] 01-25-2024 01:33-0400 SaO2% (BldA) [Mass fraction] 99 % OMER [facility] Comment on above: Order Comment: Specimen Type: ARTERIAL B LOOD SPECIMENOrdering Facility: [facility] Address: [address] [place] [address] Performed By: #### A LLBG ####[facility] [id number] [place] [id number] [place] 01-24-2024 23:39-0400 SaO2% (BldA) [Mass fraction] 99 % OMER [facility] Comment on above: Order Comment: Specimen Type: ARTERIAL B LOOD SPECIMENOrdering Facility: [facility] Address: [address] [place], [place] [id number] Performed By: #### A LLBG ####[facility] [id number] [place] [id number] [place] 01-24-2024 21:27-0400 SaO2% (BldA) [Mass fraction] 100 % [facility] Comment on above: Order Comment: Specimen Type: ARTERIAL B LOOD SPECIMENOrdering Facility: [facility] Address: [address] [place] [address] Performed By: #### A LLBG ####[facility] LABCLIA [id number] [place] [id number] [place] 01-24-2024 19:21-0400 SaO2% (BldA) [Mass fraction] 99 % [facility] Comment on above: Order Comment: Specimen Type: ARTERIAL B LOOD SPECIMENOrdering Facility: [facility] Address: [address] [place] [address] Performed By: #### A LLBG ####[facility] LABIA [id number] [place] [id number] [place] 01-24-2024 17:30-0400 SaO2% (BldA) [Mass fraction] 99 % [facility] Comment on above: Order Comment: Specimen Type: ARTERIAL B LOOD SPECIMENOrdering Facility: [facility] Address: [address] [place] [address] Performed By: #### A LLBG ####[facility] LABIA [id number] [place] [id number] [place] 01-24-2024 15:26-0400 SaO2% (BldA) [Mass fraction] 99 % [facility] Comment on above: Order Comment: Specimen Type: ARTERIAL B LOOD SPECIMENOrdering Facility: [facility] Address: [address] [place] [address] Performed By: #### A LLBG ####[facility] LABIA [id number] [place] [phone] [place] 01-24-2024 13:29-0400 SaO2% (BldA) [Mass fraction] 99 % [facility] Comment on above: Order Comment: Specimen Type: ARTERIAL B LOOD SPECIMENOrdering Facility: [facility] Address: [address] [place] [address] Performed By: #### A LLBG ####[facility] LABIA [id number] [place] [phone] [place] 01-24-2024 11:21-0400 SaO2% (BldA) [Mass fraction] 99 % OMER NILS [facility] Comment on above: Order Comment: Specimen Type: ARTERIAL B LOOD SPECIMENOrdering Facility: [facility] Address: [address] [place] [address] Performed By: #### A LLBG ####[facility] LABCLIA [id number] [place] [phone] [place] 01-24-2024 09:29-0400 SaO2% (BldA) [Mass fraction] 99 % [facility] Comment on above: Order Comment: Specimen Type: ARTERIAL B LOOD SPECIMENOrdering Facility: [facility] Address: [address] [place] [address] Performed By: #### A LLBG ####[facility] LABCLIA [id number] [place] [phone] [place] 01-24-2024 08:18-0400 SaO2% (BldA) [Mass fraction] 91 % [facility] Comment on above: Order Comment: Specimen Type: ARTERIAL B LOOD SPECIMENOrdering Facility: [facility] Address: [address] [place] [address] Performed By: #### A LLBG ####[facility] LABCLIA [id number] [place] [phone] [place] 01-24-2024 07:42-0400 SaO2% (BldA) [Mass fraction] 98 % OMER NILS [facility] Comment on above: Order Comment: Specimen Type: ARTERIAL B LOOD SPECIMENOrdering Facility: [facility] Address: [address] [place] [address] Performed By: #### A LLBG ####[facility] LABCLIA [id number] [place] [phone] [facility] 01-24-2024 05:27-0400 SaO2% (BldA) [Mass fraction] 98 % [facility] Comment on above: Order Comment: Specimen Type: ARTERIAL B LOOD SPECIMENOrdering Facility: [facility] Address: [address] [place], [place] [id number] Performed By: #### A LLBG ####[facility] LABCLIA [id number] [place] [phone] [place] [facility] 01-24-2024 03:29-0400 SaO2% (BldA) [Mass fraction] 99 % [facility] Comment on above: Order Comment: Specimen Type: ARTERIAL B LOOD SPECIMENOrdering Facility: [facility] Address: [address] [place], [place] [id number] Performed By: #### A LLBG ####[facility] LABCLIA [id number] [place] [phone] [facility] 01-24-2024 01:30-0400 SaO2% (BldA) [Mass fraction] 99 % [facility] Comment on above: Order Comment: Specimen Type: ARTERIAL B LOOD SPECIMENOrdering Facility: [facility] Address: [address] [place], [place] [id number] Performed By: #### A LLBG ####[facility] LABCLIA [id number] [place] [phone] [facility] 01-23-2024 23:43-0400 SaO2% (BldA) [Mass fraction] 98 % [facility] Comment on above: Order Comment: Specimen Type: ARTERIAL B LOOD SPECIMENOrdering Facility: [facility] Address: [address] [place], [place] [id number] Performed By: #### A LLBG ####[facility] LABCLIA [id number] [address] [address] [facility] 01-23-2024 21:33-0400 SaO2% (BldA) [Mass fraction] 99 % [facility] Comment on above: Order Comment: Specimen Type: ARTERIAL B LOOD SPECIMENOrdering Facility: [facility] Address: [address] [place], [place] [address] Performed By: #### A LLBG ####[facility] LABCLIA [id number] [place] [phone] [place] 01-23-2024 19:57-0400 SaO2% (BldA) [Mass fraction] 99 % [facility] Comment on above: Order Comment: Specimen Type: ARTERIAL B LOOD SPECIMENOrdering Facility: [facility] Address: [address] [place], [place] [id number] Performed By: #### A LLBG ####[facility] LABIA [id number] [place] [phone] [place] 01-23-2024 18:07-0400 SaO2% (BldA) [Mass fraction] 100 % [facility] Comment on above: Order Comment: Specimen Type: ARTERIAL B LOOD SPECIMENOrdering Facility: [facility] Address: [address] [place], [place] [id number] Performed By: #### A LLBG ####[facility] LABIA [id number] [place] [phone] [place] 01-23-2024 16:55-0400 SaO2% (BldA) [Mass fraction] 99 % [facility] Comment on above: Order Comment: Specimen Type: ARTERIAL B LOOD SPECIMENOrdering Facility: [facility] Address: [address] [place] [address] Performed By: #### A LLBG ####[facility] LABIA [id number] [address] [address] [place] 01-23-2024 15:39-0400 SaO2% (BldA) [Mass fraction] 99 % [facility] Comment on above: Order Comment: Specimen Type: ARTERIAL B LOOD SPECIMENOrdering Facility: [facility] Address: [address] [place] [address] Performed By: #### A LLBG ####[facility] LABCLIA [id number] [place] [phone] [place] 01-23-2024 15:10-0400 SaO2% (BldA) [Mass fraction] 99 % [facility] Comment on above: Order Comment: Specimen Type: ARTERIAL B LOOD SPECIMENOrdering Facility: [facility] Address: [address] [place] [address] Performed By: #### A LLBG ####[facility] LABIA [id number] [place] [phone] [place] 01-23-2024 14:34-0400 SaO2% (BldA) [Mass fraction] 100 % [facility] Comment on above: Order Comment: Specimen Type: ARTERIAL B LOOD SPECIMENOrdering Facility: [facility] Address: [address] [place] [address] Performed By: #### A LLBG ####[facility] LABIA [id number] [place] [phone] [place] 01-23-2024 14:09-0400 SaO2% (BldA) [Mass fraction] 100 % [facility] Comment on above: Order Comment: Specimen Type: ARTERIAL B LOOD SPECIMENOrdering Facility: [facility] Address: [address] [place] [address] Performed By: #### A LLBG ####[facility] LABIA [id number] [place] [phone] [place] 01-23-2024 13:18-0400 SaO2% (BldA) [Mass fraction] 99 % [facility] Comment on above: Order Comment: Specimen Type: ARTERIAL B LOOD SPECIMENOrdering Facility: [facility] Address: [address] [place], [place] [id number] Performed By: #### A LLBG ####[facility] LABIA [id number] [place] [phone] [place] 01-23-2024 12:17-0400 SaO2% (BldA) [Mass fraction] 99 % [facility] Comment on above: Order Comment: Specimen Type: ARTERIAL B LOOD SPECIMENOrdering Facility: [facility] Address: [address] [place] [address] Performed By: #### A LLBG ####[facility] LABIA [id number] [place] [phone] [place] 01-23-2024 10:55-0400 SaO2% (BldA) [Mass fraction] 100 % [facility] Comment on above: Order Comment: Specimen Type: ARTERIAL B LOOD SPECIMENOrdering Facility: [facility] Address: [address] [place] [address] Performed By: #### A LLBG ####[facility] LABIA [id number] [place] [phone] [place] 01-23-2024 09:36-0400 SaO2% (BldA) [Mass fraction] 100 % [facility] Comment on above: Order Comment: Specimen Type: ARTERIAL B LOOD SPECIMENOrdering Facility: [facility] Address: [address] [place], [place] [id number] Performed By: #### A LLBG ####[facility] LABIA [id number] [place] [phone] [place] 01-23-2024 08:51-0400 SaO2% (BldA) [Mass fraction] 100 % [facility] Comment on above: Order Comment: Specimen Type: ARTERIAL B LOOD SPECIMENOrdering Facility: [facility] Address: [address] [place] [id number] Performed By: #### A LLMG ####[facility] LABCLIA [id number] [place] [phone] [facility] 01-23-2024 07:09-0400 SaO2% (BldA) [Mass fraction] 99 % OMER WRAY [facility] Comment on above: Order Comment: Specimen Type: ARTERIAL B LOOD SPECIMENOrdering Facility: [facility] Address: [address] [place], [place] [id number] Performed By: #### A LLBG ####[facility] LABIA [id number] [place] [phone] [facility] [place] 01-19-2024 12:29-0400 Diastolic blood pressure 60 mm[Hg] Moiz Koenig MD Work Phone: [facility] 01-19-2024 12:29-0400 Systolic blood pressure 108 mm[Hg] Moiz Koenig MD Work Phone: [facility] 01-19-2024 12:26-0400 Body height 182.9 cm Moiz Koenig MD Work Phone: [facility] 01-19-2024 12:26-0400 Body mass index (BMI) [Ratio] 43.13 kg/m2 Moiz Koenig MD Work Phone: [facility] 01-19-2024 12:26-0400 Body weight 144.24 kg Moiz Koenig MD Work Phone: [facility] 01-19-2024 12:26-0400 Heart rate 60 /min Moiz Koenig MD Work Phone: [facility] 01-19-2024 12:26-0400 Respiratory rate 12 /min Moiz Koenig MD Work Phone: [facility] 01-19-2024 12:26-0400 SaO2% (BldA) [Mass fraction] 95 % Moiz Koenig MD Work Phone: [facility] 04-03-2023 12:50-0500 Body temperature 97.8 [degF] Dr. Asad Mcdonough Work Phone: [facility] 04-03-2023 12:50-0500 Diastolic blood pressure 84 mm[Hg] Dr. Asad Mcdonough Work Phone: [facility] 04-03-2023 12:50-0500 Heart rate 78 /min Dr. Asad Mcdonough Work Phone: [facility] 04-03-2023 12:50-0500 Respiratory rate 14 /min Dr. Asad Mcdonough Work Phone: [facility] 04-03-2023 12:50-0500 SaO2% (BldA) [Mass fraction] 97 % Dr. Asad Mcdonough Work Phone: [facility] 04-03-2023 12:50-0500 Systolic blood pressure 126 mm[Hg] Dr. Asad Mcdonough Work Phone: [facility] 04-03-2023 12:00-0500 Inhaled oxygen flow rate 3 L/min Dr. Asad Mcdonough Work Phone: [facility] 04-03-2023 06:24-0500 Body height 182.[address] Asad Mcdonough Work Phone: [facility] 04-03-2023 06:24-0500 Body mass index (BMI) [Ratio] 41.6 kg/m2 Dr. Asad Mcdonough Work Phone: [facility] 04-03-2023 06:24-0500 Body weight 139.[address] Asad Mcdonough Work Phone: [facility] 03-22-2023 08:22-0500 Body mass index (BMI) [Ratio] 41.8 kg/m2 Dr. Asad Mcdonough Work Phone: [facility] 03-22-2023 08:22-0500 Body temperature 97.4 [degF] Dr. Asad Mcdonough Work Phone: [facility] 03-22-2023 08:22-0500 Body weight 139.[address] Asad Mcdonough Work Phone: [facility] 03-22-2023 08:22-0500 Diastolic blood pressure 70 mm[Hg] Dr. Asad Mcdonough Work Phone: [facility] 03-22-2023 08:22-0500 Heart rate 60 /min Dr. Asad Mcdonough Work Phone: [facility] 03-22-2023 08:22-0500 Respiratory rate 18 /min Dr. Asad Mcdonough Work Phone: [facility] 03-22-2023 08:22-0500 SaO2% (BldA) [Mass fraction] 96 % Dr. Asad Mcdonough Work Phone: [facility] 03-22-2023 08:22-0500 Systolic blood pressure 131 mm[Hg] Dr. Asad Mcdonough Work Phone: [facility] 01-03-2023 13:45-0400 Body weight 138.[address] Asad Mcdonough Work Phone: [facility] 12-20-2022 13:58-0400 Body temperature 99.1 [degF] Dr. Asad Mcdonough Work Phone: [facility] 12-20-2022 13:58-0400 Diastolic blood pressure 62 mm[Hg] Dr. Asad Mcdonough Work Phone: [facility] 12-20-2022 13:58-0400 Heart rate 59 /min Dr. Asad Mcdonough Work Phone: [facility] 12-20-2022 13:58-0400 Respiratory rate 16 /min Dr. Asad Mcdonough Work Phone: [facility] 12-20-2022 13:58-0400 SaO2% (BldA) [Mass fraction] 94 % Dr. Asad Mcdonough Work Phone: [facility] 12-20-2022 13:58-0400 Systolic blood pressure 111 mm[Hg] Dr. Asad Mcdonough Work Phone: [facility] 12-20-2022 04:37-0400 Inhaled oxygen flow rate 2 L/min Dr. Asad Mcdonough Work Phone: [facility] 12-19-2022 20:59-0400 Body height 182.[address] Asad Mcdonough Work Phone: [facility] 12-19-2022 16:57-0400 Body mass index (BMI) [Ratio] 41.9 kg/m2 Dr. Asad Mcdonough Work Phone: [facility] 12-19-2022 16:57-0400 Body weight 140.[address] Asad Mcdonough Work Phone: [facility] 09-07-2016 15:07-0400 BMI (Body Mass Index) 43.67 kg/m2 [facility]ie Rad[facility] Work Phone: 09-07-2016 15:07-0400 Body weight 146.06 kg Birdie Garcia [facility] Medical [facility] Work Phone: 09-07-2016 15:07-0400 Weight 146.06 kg Birdie Garcia [facility] Work Phone: 11-30-2012 13:09-0400 Heart rate 78 /min Birdie Garcia [facility] Work Phone: 11-30-2012 13:09-0400 Heart rate 398 ms Birdietiffanie Garcia [facility] Work Phone: 11-30-2012 13:01-0400 BMI (Body Mass Index) 40.29 kg/m2 Anabelle Ervin [facility] Work Phone: 11-30-2012 13:01-0400 BP Diastolic 90 mm[Hg] Anabelle Ervin [facility] Medical [facility] Work Phone: 11-30-2012 13:01-0400 BP Systolic 122 mm[Hg] [facility]abelle [facility] Work Phone: 11-30-2012 13:01-0400 Pulse (Heart Rate) 78 /min Anabelle IZQUIERDO [facility] Work Phone: 11-30-2012 13:01-0400 Respiratory Rate 20 /min Anabelle Ervin [facility] Work Phone: 11-30-2012 13:01-0400 Weight 134.27 kg Anabelle IZQUIERDO [facility] Work Phone: 06-22-2011 14:05-0500 Body Temperature 98.9 [degF] Anabelle IZQUIERDO Medical [facility] ter [facility] Work Phone: 06-22-2011 14:05-0500 BSA (Body Surface Area) 2.51 m2 [facility] Work Phone: 06-22-2011 14:05-0500 Pulse Oximetry 95 % Anabelle IZQUIERDO [facility] Work Phone: 05-30-2011 13:44-0500 Height 182.88 cm [facility] Work Phone: Encounters Encounter Date Encounter Type Care Provider Facility Start: 01-18-2025 End: 01-18-2025 [facility] Start: 01-18-2025 End: 01-18-[address] Omer Wray MD [facility] Work Phone: Start: 01-14-2025 End: 01-14-2025 [facility] Start: 01-14-2025 End: 01-14-[address] Omer Wray MD [facility] Work Phone: Start: 01-13-2025 End: 01-13-2025 Patient encounter procedure Jolene Larkin [facility] Work Phone: Start: 01-13-2025 End: 01-13-2025 ambulatory Jolene Larkin Facility:[facility] Start: 12-19-2024 End: 12-19-[address] [facility] Start: 12-19-2024 End: 12-19-[address] Omer Wray MD -[facility] Work Phone: Start: 12-16-2024 Visit out of hours Brittany banegas MD Work Phone: [employer] Work Phone: Start: 12-16-2024 In-person encounter Brittany gomez MD Work Phone: [facility] Work Phone: Start: 12-12-2024 ambulatory OMER WRAY Facility: [facility] Start: 12-12-2024 End: 12-12-2024 Subsequent hospital visit by physician Mri 2 [facility] (I-Stat/Lg Bore/1.5t) [facility] Start: 11-01-2024 End: 11-01-2024 Office outpatient visit 25 minutes Denny Cifuentes MD Work Phone: [facility] Comment on above: Erectile dysfunction , unspecified erectile dysfunction type (Primary Dx) Start: 11-01-2024 End: 11-01-2024 Orders Only Denny Cifuentes MD Work Phone: [facility] Comment on above: Erectile dysfunction , unspecified erectile dysfunction type (Primary Dx) Start: 10-24-2024 End: 10-24-[address] Qamar Carroll Work Phone: -Cardiovascular Services Start: 10-24-2024 End: 10-24-2024 Patient encounter procedure Evelyn Deleon SENIOR ARCHITECT/DESIGN MANAGERMayank -Cardiovascular Services Work Phone: Start: 10-24-2024 ambulatory Omer Wray Facility:[facility] Start: 10-24-2024 Non-patient / Non-visit Dr. Handy UAGLDE -[facility] Start: 10-24-2024 End: 10-24-2024 ambulatory Evelyn Deleon SENIOR ARCHITECT/DESIGN MANAGER Facility:[facility] Start: 09-19-2024 End: 09-19-[address] Omer Wray MD Work Phone: [facility] Work Phone: Start: 09-19-2024 End: 09-19-[address] Omer Wray MD -[facility] Work Phone: Start: 09-18-2024 End: 09-18-[address] Omer Wray MD Work Phone: [facility] Work Phone: Start: 09-18-2024 End: 09-18-2024 Patient encounter procedure Evelyn Deleon SENIOR ARCHITECT/DESIGN MANAGER-C -Laboratory Work Phone: Start: 09-18-2024 End: 09-18-2024 Patient encounter procedure Evelyn Deleon SENIOR ARCHITECT/DESIGN MANAGER-C -[facility] Work Phone: Start: 09-18-2024 End: 09-18-[address] Omer Wray MD Work Phone: [facility] Work Phone: Start: 09-18-2024 End: 09-18-2024 ambulatory Evelyn Deleon SENIOR ARCHITECT/DESIGN MANAGER Facility:[facility] Start: 08-13-2024 End: 08-13-2024 Emergency department patient visit Dr. Qamar Carroll -Emergency Department Work Phone: Start: 06-13-2024 End: 06-13-2024 ambulatory Omer Wray Facility:[facility] Start: 06-13-2024 End: 06-13-[address] Omer Wray MD -[facility] Work Phone: Start: 06-04-2024 ambulatory Omer Wray Facility:[facility] Start: 05-15-2024 End: 05-15-2024 ambulatory Evelyn Deleon SENIOR ARCHITECT/DESIGN MANAGER Facility:[facility] Start: 05-15-2024 End: 05-15-2024 ambulatory Evelyn Deleon SENIOR ARCHITECT/DESIGN MANAGER Facility:[facility] Start: 04-26-2024 End: 05-24-2024 ambulatory [facility] Facility:[facility] Start: 04-18-2024 End: 04-18-2024 Emergency department patient visit [facility] Facility:[facility] Start: 04-16-2024 End: 04-16-2024 ambulatory [facility] Facility:[facility] Start: 04-10-2024 End: 04-23-2024 ambulatory [facility] Facility:[facility] Start: 03-20-2024 End: 03-23-2024 ambulatory [facility] Facility:[facility] Start: 03-13-2024 End: 03-13-2024 ambulatory [facility] Facility:[facility] Start: 03-04-2024 End: 03-04-2024 Telephone encounter A Tunde Diamond MD Work Phone: Cardiology Comment on above: Patient Update Start: 03-01-2024 End: 03-01-2024 ambulatory Evelyn Deleon SENIOR ARCHITECT/DESIGN MANAGER Facility:[facility] Start: 02-28-2024 End: 02-28-2024 ambulatory [facility] Facility:[facility] Start: 02-19-2024 End: 02-19-2024 ambulatory Evelyn Deleon SENIOR ARCHITECT/DESIGN MANAGER Facility:[facility] Start: 02-14-2024 End: 02-14-2024 ambulatory Evelyn Deleon SENIOR ARCHITECT/DESIGN MANAGER Facility:[facility] Start: 02-14-2024 End: 02-14-2024 ambulatory Evelyn Deleon SENIOR ARCHITECT/DESIGN MANAGER Facility:[facility] Start: 02-06-2024 End: 02-06-2024 Patient encounter procedure Liz Madsen APRN.CNP Work Phone: Cardiothoracic Comment on above: S/P MVR (mitral valv e repair) (Primary Dx); S/P TVR (tricuspid valve repair); S/P Maze operation for atrial fibrillation; Cardiac pacemaker in situ Start: 02-06-2024 End: 02-06-2024 ambulatory ACKLEY Luna [facility] Facility:[facility] Start: 02-06-2024 End: 02-06-2024 Subsequent hospital visit by physician Xr Chest Main J1 Work Phone: Radiology Comment on above: Surgery follow-up [Z 09] Start: 01-31-2024 End: 01-31-2024 Telephone encounter Brittany Valente RN NOC Comment on above: Follow Up Phone Call (RC follow up call all clear. /) Start: 01-29-2024 End: 01-29-2024 Evaluation and management of inpatient OMER S NILS Facility:[facility] Start: 01-29-2024 End: 01-29-2024 Evaluation and management of inpatient [facility] Work Phone: Cardiology Start: 01-23-2024 End: 01-29-2024 Evaluation and management of inpatient [facility] Work Phone: Cardiology Start: 01-22-2024 Encounter for preprocedural cardiovascular examination Phillip DIAMOND [facility] Start: 01-22-2024 End: 01-22-2024 Patient encounter status Phillip Diamond MD Work Phone: [facility] Start: 01-22-2024 End: 01-22-2024 Admission to same day surgery center Anesthesia Clearance Work Phone: [facility] Work Phone: Start: 01-22-2024 End: 01-22-2024 ambulatory Phillip Diamond MD Work Phone: Cardiothoracic Comment on [...] Encounter for other preprocedural examination MOIZ KOENIG [facility] Start: 01-19-2024 End: 01-19-2024 Subsequent hospital [...] examination done Moiz Koenig MD Work Phone: [facility] Work Phone: Start: 01-19-2024 End: 01-19-2024 Subsequent hospital visit by physician Vangie Manzano (I-Stat) Work Phone: Radiology Comment on above: 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] Start: 01-19-2024 End: 01-19-2024 ambulatory A TUNDE DIAMOND Pulmonary Medicine Comment on above: Spirometry Start: 01-19-2024 End: 01-19-2024 Patient encounter status Moiz Koenig MD Work Phone: [facility] Start: 01-19-2024 End: 01-19-2024 Subsequent hospital visit by physician Dk Smith Main J1 Work Phone: Radiology Comment on above: 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] Start: 01-18-2024 Patient encounter status Pulm J-1 [facility] Start: 01-15-2024 End: 01-15-2024 ambulatory OMER NILS Facility:[facility] Start: 12-06-2023 Patient encounter status Phillip Diamond MD Work Phone: [facility] Start: 12-06-2023 Telephone encounter A Tunde ace MD Work Phone: Cardiothoracic Comment on above: Referral Information ; Pre-Op CTHO Consult; Cardiac Preop Checklist Start: 07-10-2023 End: 07-11-2023 ambulatory UNKNOWN PROVIDER Facility:[facility] Start: 07-10-2023 End: 07-10-2023 Subsequent hospital visit by physician Chelsie Nieves [employer] Other Phone: [facility] Diagnostic Radiology Comment on above: Dyspnea, unspecified type Start: 04-03-2023 Non-patient / Non-visit Dr. Brando Mcdonough Work Phone: [facility] Start: 04-03-2023 End: 04-03-2023 Admission to same day surgery center Dr. Asad Mcdonough Work Phone: [facility] Start: 04-03-2023 End: 04-03-[address] Asad Mcdonough Work Phone: [facility] Work Phone: Start: 03-29-2023 End: 03-29-[address] Asad Mcdonough Work Phone: [facility] Work Phone: Start: 03-29-2023 End: 03-29-[address] Asad Mcdonough Work Phone: [facility] Work Phone: Start: 03-22-2023 End: 03-22-[address] Asad Mcdonough Work Phone: [facility] Work Phone: Start: 02-01-2023 End: 02-01-[address] Asad Mcdonough Work Phone: [facility] Work Phone: Start: 01-03-2023 End: 01-03-[address] Asad Mcdonough Work Phone: [facility] Work Phone: Start: 12-20-2022 Non-patient / Non-visit Dr. Bradno Mcdonough Work Phone: [facility] Work Phone: Start: 12-19-2022 End: 12-20-2022 Evaluation and management of inpatient Dr. Asad Mcdonough Work Phone: [facility] Work Phone: Start: 12-19-2022 End: 12-20-[address] Asad Mcdonough Work Phone: [facility] Work Phone: Start: 12-19-2022 Non-patient / Non-visit Dr. Brando Mcdonough Work Phone: [facility] Start: 03-07-2021 End: 03-07-2021 Emergency department patient visit NAEL LAN [facility] Start: 12-09-2020 ambulatory EDNA Shelby cility:[facility] Start: 03-07-2016 End: 03-08-2016 Ambulatory JANI SERRANO Facility:[facility] Procedures Date Procedure Procedure Detail Performing Clinician Start: 01-13-2025 Urnls dip stick/tabl et reagent auto microscopy [facility] Start: 12-16-2024 Blood pressure withi n normal parameters - no follow-up required Brittany Bundy MD Work Phone: Start: 12-16-2024 BMI outside of erica l parameters - no follow-up plan/reason not given Brittany Bundy MD Work Phone: Start: 12-16-2024 Current tobacco non- user cad cap copd pv dm Brittany Bundy MD Work Phone: Start: 12-16-2024 Documentation of cur rent medications Brittany Bundy MD Work Phone: Start: 12-16-2024 Pain assessment docu mented as positive - no follow-up/reason not given Brittany Bundy MD Work Phone: Start: 08-13-2024 X-ray of chest, PA a nd lateral views Dr. Omer Wray MD Work Phone: Start: 08-13-[address] Omer Wray MD Work Phone: Start: 02-06-2024 Radiologic exam ches t 2 views A Tunde Diamond MD Work Phone: Start: 01-29-2024 Echocardiography [facility] Start: 01-27-2024 Antibody screen OMER O FORI Comment on above: Order Comment: Speci men Type: BLOOD SPECIMENOrdering Facility: [facility] Address: [address] [place] [address] Performed By: #### T SCR ####CC MAIN BLOOD BANKCLIA [id number] [address] Start: 01-24-2024 Antibody screen OMER O FORI Comment on above: Order Comment: Speci men Type: BLOOD SPECIMENOrdering Facility: [facility] Address: [address] [place] [address] Performed By: #### T SCR ####CC MAIN BLOOD BANKCLIA [id number] [address] Start: 01-23-2024 Program eval implant able in persn dual ld pacer Edwin Self APRN.HAIRSPRING TRUER Work Phone: Start: 01-19-2024 Co diffusing capacity Phillip Diamond MD Work Phone: Start: 01-19-2024 Echocardiography [facility]ER WRAY Start: 01-19-2024 CTA CHEST/ABD/PEL (G ATED) W IVCON A Tunde Diamond MD Work Phone: Start: 01-19-2024 Creatinine [Mass/vol ume] in Serum or Plasma [facility] Provider Start: 01-19-2024 Antibody screen OMER O FORI Comment on above: Order Comment: Speci men Type: BLOOD SPECIMENOrdering Facility: [facility] Address: [address] [place] [address] Performed By: #### T [id number] ####CC [facility] B[facility] [id number] [address] STATES OF [facility] Start: 01-19-2024 Radiologic exam ches t 2 views Phillip Diamond MD Work Phone: Start: 07-10-2023 Radiologic exam ches t 2 views Chelsie Nieves [employer] Other Phone: Start: 04-03-2023 Lap Robotic Umb/Vent ral Hernia (Not Applicable) Dr. Asad Mcdonough Work Phone: Start: 03-29-2023 Computed tomography of abdomen and pelvis with intravenous contrast Dr. Asad Mcdonough Work Phone: Start: 03-28-2023 Nasal Screen MRSA/MSSA Dr. Asad Mcdonough Work Phone: Start: 12-19-[address] Shazia Mcdonough Work Phone: Start: 12-19-2022 Plain chest X-ray Dr. Talita Mcdonough Work Phone: Start: 12-19-2022 Computed tomography of abdomen and pelvis with intravenous contrast Dr. Asad Mcdonough Work Phone: Start: 11-25-2019 Colonoscopy Chelsie Wright on [employer] Other Phone: Start: 09-07-2016 End: 09-07-2016 Documentation of [...] PA-C Work Phone: Start: 11-30-2012 End: 11-30-2012 BELLY PACKER Renuka Georges PA-C Work Phone: Start: 11-30-2012 End: 11-30-2012 Electrocardiogram, complete Renuka Guerin PA-C Work Phone: Start: 11-30-2012 End: 11-30-2012 Follow Up Appt 6 months Renuka grover PA-C Work Phone: Start: 11-30-2012 End: 11-30-2012 Thyroid stimulating hormone (TSH) Renuka Georges PA-C Work Phone: Start: 11-16-2011 End: 11-16-2011 Follow Up Appt 1 year Omer Wray MD Plan of Treatment Date Care Activity Detail Author Start: 11-24-2029 Screening for malignant neoplasm of colon [facility] Start: 02-05-2027 Diabetes Screening Diabetes Screening [facility] Start: 01-28-2027 Diabetes Screening Diabetes Screening [facility] Start: 01-24-2027 Diabetes Screening Diabetes Screening [facility] Start: 01-18-2027 Diabetes Screening Diabetes Screening [facility] Start: 08-22-2025 DTaP/Tdap/Td Vaccines (3 - Td or Tdap) DTaP/Tdap/Td Vaccines (3 - Td or Tdap) [facility] Start: 08-22-2025 Urine microalbumin profile DTaP,Tdap,Td Vaccine (3 - Td or Tdap) [facility] Start: 08-10-2025 Tetanus vaccination Tetanus (Td or Tdap) Booster [facility] Start: 08-10-2025 Urine microalbumin profile DTaP,Tdap,Td Vaccine (2 - Td or Tdap) [facility] Start: 02-05-2025 BP Controlled (<130/80) BP Controlled (<130/80) [facility] Start: 01-27-2025 ambulatory Ambulatory Facility:[facility] Start: 01-18-2025 BP Controlled (<130/80) BP Controlled (<130/80) [facility] Start: 01-13-2025 End: 01-13-2025 Evaluation of diagnostic study results [facility] Start: 12-23-2024 Influenza vaccination Influenza Vaccine (#1) [facility] Start: 08-13-2024 [facility] Start: 04-24-2024 Advance Directive Discussion Advance Directive Discussion [facility] Start: 03-07-2024 Diabetes Screening Diabetes Screening [facility] Start: 02-06-2024 End: 02-06-2024 Follow-up encounter 02/06/2024 8:45 AM EDT Results Only Cardiology [address] [id number] Surgery Follow Up Cardiology Comment on above: Surgery Follow Up Start: 02-06-2024 End: 02-06-2024 ambulatory 02/06/2024 8:30 AM EDT Results Only [facility] [address] [place] [address] CBC CMP [facility] Comment on above: CBC CMP Start: 02-06-2024 End: 02-06-2024 Patient encounter procedure Radiology Comment on above: Surgery Follow Up Hospital Discharge J 08-22-20 Start: 01-23-2024 End: 01-23-2024 Admission to same day surgery center 01/23/2024 12:20 PM EDT - 01/23/2024 5:00 PM EDT Surgery Admitting [address] [place] [address] Phillip Diamond MD [address] [place], [place] [id number] MVr +/- MAZE ?Robot (2) Admitting Comment [...] Mitral valve disorder 01/23/2024 12:20 PM EDT [facility] Start: 01-23-2024 End: 01-23-2024 Admission to same day surgery center 01/23/2024 11:10 AM EDT - 01/23/2024 3:50 PM EDT Surgery Admitting [address] [place] [address] Phillip Diamond MD [address] [place] [address] MVr +/- MAZE ?Robot (2) Admitting Comment on above: MVr +/- MAZE ?Robot (2) Start: 01-23-2024 End: 01-23-2024 Maze procedure for atrial fibrillation FULL MAZE W/ CARDIOPULMONARY BYPASS Disorder of artery or arteriole (HCC) Pre-operative cardiovascular examination Atrial fibrillation, unspecified type (HCC) Mitral valve disorder 01/23/2024 11:10 AM EDT [facility] Start: 01-23-2024 Subsequent hospital visit by physician 01/23/2024 11:10 AM EDT Hospital Encounter Admitting [address] [id number] Phillip Diamond MD [address] [place] [address] Disorder of artery or arteriole [...] 01/23/2024 11:10 AM EDT Surgery Admitting [address] [place] [address] Phillip Diamond MD [address] [place] [address] MVr +/- MAZE ?Robot (2) Admitting Comment on above: MVr +/- MAZE ?Robot (2) Start: 01-23-2024 End: 01-23-2024 Anesthesia consultation 01/23/2024 6:30 AM EDT Anesthesia Event Admitting [address] [id number] Willow Armas SRNA Admitting Start: 01-23-2024 End: 01-23-2024 Maze procedure for atrial fibrillation FULL MAZE W/ CARDIOPULMONARY BYPASS Disorder of artery or arteriole (HCC) Pre-operative cardiovascular examination Atrial fibrillation, unspecified type (HCC) Mitral valve disorder 01/23/2024 6:30 AM EDT [facility] Start: 01-23-2024 Subsequent hospital visit by physician 01/23/2024 6:30 AM EDT Hospital Encounter Admitting [address] [place] [address] Phillip Diamond MD [address] [place] [address] Disorder of artery or arteriole [...] Mitral valve disorder 01/23/2024 6:[address] [facility] [address] [facility] Start: 01-22-2024 End: 01-22-2024 Patient encounter procedure Cardiothoracic Comment on above: MVr +/- MAZE ?Robot Start: 12-24-2023 Covid-19 Vaccine () Covid-19 Vaccine () [facility] Start: 12-24-2023 Influenza vaccination Influenza Vaccine (#1) [facility] Start: 12-08-2023 End: 03-08-2024 aPTT in Platelet poor plasma by Coagulation assay ACTIVATED PARTIAL THROMBOPLASTIN TIME Lab Routine Disorder of artery or arteriole (HCC) Pre-operative cardiovascular examination Atrial fibrillation, unspecified type (HCC) Mitral valve disorder Expected: 12/08/2023 (Approximate), Expires: 03/08/2024 [facility] Comment on above: Expected: 12/08/2023 (Approximate), Expi res: 03/08/2024 Start: 12-08-2023 End: 03-08-2024 CBC W Auto Differential panel - Blood COMPLETE BLOOD COUNT AND DIFFERENTIAL Lab Routine Disorder of artery or arteriole (HCC) Pre-operative cardiovascular examination Atrial fibrillation, unspecified type (HCC) Mitral valve disorder Expected: 12/08/2023, Expires: 03/08/2024 [facility] Comment on above: Expected: 12/08/2023, Expires: Start: 12-08-2023 End: 03-08-2024 Comprehensive metabolic 2000 panel - Serum or Plasma COMPREHENSIVE METABOLIC PANEL Lab Routine Disorder of artery or arteriole (HCC) Pre-operative cardiovascular examination Atrial fibrillation, unspecified type (HCC) Mitral valve disorder Expected: 12/08/2023, Expires: 03/08/2024 [facility] Work Phone: Comment on above: Expected: 12/08/2023, Expires: Start: 12-08-2023 End: 03-08-2024 CONFIRM BLOOD TYPE CONFIRM BLOOD TYPE Blood Bank Routine Disorder of artery or arteriole (HCC) Pre-operative cardiovascular examination Atrial fibrillation, unspecified type (HCC) Mitral valve disorder Expected: 12/08/2023, Expires: 03/08/2024 [facility] Comment on above: Expected: 12/08/2023, Expires: Start: 12-08-2023 End: 03-08-2024 Lactate dehydrogenase [Enzymatic activity/volume] in Serum or Plasma LACTATE DEHYDROGENASE Lab Routine Disorder of artery or arteriole (HCC) Pre-operative cardiovascular examination Atrial fibrillation, unspecified type (HCC) Mitral valve disorder Expected: 12/08/2023, Expires: 03/08/2024 [facility] Comment on above: Expected: 12/08/2023, Expires: Start: 12-08-2023 End: 03-08-2024 PT panel - Platelet poor plasma by Coagulation assay PROTHROMBIN TIME Lab Routine Disorder of artery or arteriole (HCC) Pre-operative cardiovascular examination Atrial fibrillation, unspecified type (HCC) Mitral valve disorder Expected: 12/08/2023 (Approximate), Expires: 03/08/2024 [facility] Comment on above: Expected: 12/08/2023 (Approximate), Expi res: 03/08/2024 Start: 12-08-2023 End: 03-08-2024 TYPE AND SCREEN,30 DAY TYPE AND SCREEN,30 DAY Blood Bank Routine Disorder of artery or arteriole (HCC) Pre-operative cardiovascular examination Atrial fibrillation, unspecified type (HCC) Mitral valve disorder Expected: 12/08/2023, Expires: 03/08/2024 [facility] Comment on above: Expected: 12/08/2023, Expires: Start: 12-08-2023 End: 03-08-2024 URINALYSIS, DIPSTICK ONLY URINALYSIS, DIPSTICK ONLY Lab Routine Disorder of artery or arteriole (HCC) Pre-operative cardiovascular examination Atrial fibrillation, unspecified type (HCC) Mitral valve disorder Expected: 12/08/2023, Expires: 03/08/2024 [facility] Comment on above: Expected: 12/08/2023, Expires: Start: 04-24-2023 Advance Directive Discussion Advance Directive Discussion [facility] Start: 04-03-2023 Patient discharge [facility] Start: 12-23-2022 Covid-19 Vaccine () Covid-19 Vaccine () [facility] Start: 12-23-2022 COVID-19 Vaccine () COVID-19 Vaccine () [facility] Start: 12-23-2022 Influenza vaccination Influenza Vaccine (#1) [facility] Start: 12-20-2022 Patient discharge [facility] Start: 12-19-2022 Application of intermittent pneumatic compression device [facility] Start: 12-19-2022 Following clinical pathway protocol [facility] Start: 12-19-2022 Measuring intake and output [facility] Start: 12-19-2022 Incentive spirometry [facility] Start: 12-19-2022 [facility] Start: 12-19-2022 Application of ice collar, cap or bag [facility] Start: 12-19-2022 Elevation of head of bed [facility] Start: 12-19-2022 Admission procedure [facility] Start: 12-19-2022 Anesthesia hernia repair upper abdomen nos ANESTH REPAIR OF HERNIA [facility] Start: 12-19-2022 RPR AA HRN 1ST < 3 CM RDC RPR AA HRN 1ST < 3 CM RDC [facility] Start: 2022 Pneumococcal vaccination Pneumococcal Vaccine(s) (65+ yrs) (1 of 1 - PCV) [facility] Start: 2022 Pneumococcal Vaccine: 65+ (2 of 2 - PPSV23 or PCV20) Pneumococcal Vaccine: 65+ (2 of 2 - PPSV23 or PCV20) [facility] Start: 01-22-2022 Medicare Annual Wellness Visit Medicare Annual Wellness Visit [facility] Start: 11-24-2020 Screening for malignant neoplasm of colon [facility] Start: 2017 Hepatitis B (HBV) Vaccine (optional start 60+ years) Hepatitis B (HBV) Vaccine (optional start 60+ years) [facility] Start: 2017 RSV Immunization for Adults (1 - Risk 60-74 years 1-dose series) RSV Immunization for Adults (1 - Risk 60-74 years 1-dose series) [facility] Start: 2017 RSV Vaccine (1 - 1-dose 60+ series) RSV Vaccine (1 - 1-dose 60+ series) [facility] Start: 2017 RSV Vaccine (1 - Risk 60-74 years 1-dose series) RSV Vaccine (1 - Risk 60-74 years 1-dose series) [facility] Start: 2017 RSV vaccine (optional 60+ years) RSV vaccine (optional 60+ years) [facility] Start: 09-13-2016 End: 09-13-2016 Appointment Appointment [facility] Work Phone: Start: 09-07-2016 End: 09-07-2016 Appointment Appointment [facility] Work Phone: Start: 11-30-2012 End: 11-30-2012 *BMP *BMP [facility] Work Phone: Start: 11-30-2012 End: 11-30-2012 24 hour holter monitor 24 hour holter monitor [facility] Work Phone: Start: 11-30-2012 End: 11-30-2012 BNP *Brain Natriuretic Peptide BNP [facility] Work Phone: Start: 11-30-2012 End: 11-30-2012 CBC W Auto Differential panel - Blood *CBC without Diff [facility] Work Phone: Start: 11-30-2012 End: 11-30-2012 BELLY PACKER BELLY PACKER [facility] Work Phone: Start: 11-30-2012 End: 11-30-2012 Echocardiography Echocardiogram (complete) [facility] Work Phone: Start: 11-30-2012 End: 11-30-2012 Electrocardiogram, complete EKG (In office) [facility] Work Phone: Start: 11-30-2012 End: 11-30-2012 Follow Up Appt 6 months Follow Up Appt 6 months [facility] Work Phone: Start: 11-30-2012 End: 11-30-2012 Thyroid stimulating hormone (TSH) *TSH [facility] Work Phone: Start: 02-11-2012 Prostate specific antigen measurement Prostate Cancer Screening Discussion [facility] Start: 11-16-2011 End: 11-16-2011 Follow Up Appt 1 year Follow Up Appt 1 year [facility] Work Phone: Start: 2007 Shingles (RZV) Vaccine (1 of 2) Shingles (RZV) Vaccine (1 of 2) [facility] Start: 2007 Shingrix Vaccine (1 of 2) Shingrix Vaccine (1 of 2) [facility] Start: 2002 Prostate specific antigen measurement Prostate Cancer Screening Discussion [facility] Start: 2002 Screening for malignant neoplasm of colon [facility] Start: 02-11-1992 Lipid panel [facility] Start: 02-11-1976 Hepatitis A (HAV) Vaccine (optional start 19+ years) Hepatitis A (HAV) Vaccine (optional start 19+ years) [facility] Start: 02-11-1976 Tetanus vaccination Tetanus (Td or Tdap) Booster [facility] Start: 1975 Annual PCP Team Chronic Disease Visit Annual PCP Team Chronic Disease Visit [facility] Start: 1975 Anxiety Screening Anxiety Screening [facility] Start: 1975 Depression Screening Depression Screening [facility] Start: 1975 Diabetes mellitus screening Diabetes Screening [facility] Start: 1975 Hepatitis C screening [facility] Start: 1975 Tetanus + diphtheria + acellular pertussis vaccine (product) Tdap Booster [facility] Start: 1969 Depression Screening Depression Screening [facility] Start: 1957 Abdominal aortic aneurysm screening Abdominal Aortic Aneurysm Screening [facility] Start: 1957 Lipid panel Lipid Panel [facility] Start: 1957 Medicare Annual Wellness (AWV) Medicare Annual Wellness (AWV) [facility] Start: 1957 Screening for malignant neoplasm of colon [facility] Basic metabolic 2008 panel with ionized calcium - Serum or Plasma [facility] CARDIAC IMPLANTABLE DEVICE CHECK CARDIAC IMPLANTABLE DEVICE CHECK PACEART Routine Pacemaker reprogramming/check 1 Occurrences starting 12/12/2023 [facility] Comment on above: 1 Occurrences starting 12/12/2023 End: 01-19-2024 CARDIAC IMPLANTABLE DEVICE CHECK CARDIAC IMPLANTABLE DEVICE CHECK PACEART Routine Pacemaker reprogramming/check 1 Occurrences starting 01/19/2024 until 01/19/2024 [facility] Comment on above: 1 Occurrences starting 01/19/2024 until 01/19/2024 End: 01-06-2025 CTA Chest vessels and Abdominal vessels and Pelvis vessels W contrast IV CTA CHEST/ABD/PEL (GATED) W IVCON Radiology Routine Disorder of artery or arteriole (HCC) Pre-operative cardiovascular examination Atrial fibrillation, unspecified type (HCC) Mitral valve disorder 1 Occurrences starting 12/08/2023 until 01/06/2025 [facility] Comment on above: 1 Occurrences starting 12/08/2023 until 01/06/2025 End: 12-07-2024 ECG COMPLETE ECG COMPLETE ECG Routine Disorder of artery or arteriole (HCC) Pre-operative cardiovascular examination Atrial fibrillation, unspecified type (HCC) Mitral valve disorder 1 Occurrences starting 12/08/2023 until 12/07/2024 [facility] Comment on above: 1 Occurrences starting 12/08/2023 until 12/07/2024 End: 12-07-2024 Echocardiography ECHO Cardiology Routine Disorder of artery or arteriole (HCC) Pre-operative cardiovascular examination Atrial fibrillation, unspecified type (HCC) Mitral valve disorder 1 Occurrences starting 12/08/2023 until 12/07/2024 [facility] Comment on above: 1 Occurrences starting 12/08/2023 until 12/07/2024 Electronic analysis antitachy pacemaker system [employer] SYS Cardiology Routine Disorder of artery or arteriole (HCC) Pre-operative cardiovascular examination Atrial fibrillation, unspecified type (HCC) Mitral valve disorder Ordered: 12/08/2023 [facility] Comment on above: Ordered: 12/08/2023 End: 01-06-2025 LUNG DIFFUSION CAPACITY (DLCO) LUNG DIFFUSION CAPACITY (DLCO) PFT Routine Disorder of artery or arteriole (HCC) Pre-operative cardiovascular examination Atrial fibrillation, unspecified type (HCC) Mitral valve disorder 1 Occurrences starting 12/08/2023 until 01/06/2025 [facility] Comment on above: 1 Occurrences starting 12/08/2023 until 01/06/2025 LUNG DIFFUSION CAPAC ITY (DLCO) LUNG DIFFUSION CAPACITY (DLCO) PFT Routine Disorder of artery or arteriole (HCC) Pre-operative cardiovascular examination Atrial fibrillation, unspecified type (HCC) Mitral valve disorder 01/19/2024 2:35 PM EDT [facility] Work Phone: Natriuretic peptide. B prohormone N-Terminal [Mass/volume] in Serum or Plasma [facility] Patient Education ED Asthma, Acu te (Adult) ED Pneumonia (Adult) [facility] Work Phone: Patient referral [facility] Work Phone: End: 01-06-2025 SPIROMETRY BASELINE ONLY SPIROMETRY BASELINE ONLY PFT Routine Disorder of artery or arteriole (HCC) Pre-operative cardiovascular examination Atrial fibrillation, unspecified type (HCC) Mitral valve disorder 1 Occurrences starting 12/08/2023 until 01/06/2025 [facility] Comment on above: 1 Occurrences starting 12/08/2023 until 01/06/2025 SPIROMETRY BASELINE ONLY SPIROME TRY BASELINE ONLY PFT Routine Disorder of artery or arteriole (HCC) Pre-operative cardiovascular examination Atrial fibrillation, unspecified type (HCC) Mitral valve disorder 01/19/2024 2:35 PM EDT [facility] Work Phone: [place] [facility] End: 01-06-2025 XR Chest PA and Lateral XR CHEST 2V FRONTAL/LAT Radiology Routine Disorder of artery or arteriole (HCC) Pre-operative cardiovascular examination Atrial fibrillation, unspecified type (HCC) Mitral valve disorder 1 Occurrences starting 12/08/2023 until 01/06/2025 [facility] [facility] Comment on above: 1 Occurrences starting 12/08/2023 until 01/06/2025 Immunizations Immunization Date Immunization Notes Care Provider Afsaneh boateng 02-22-2017 pneumococcal conjuga te vaccine, [address] Asad Mcdonough Work Phone: [facility] 08-11-2015 tetanus toxoid, reduced diphtheria toxoid, and acellular pertussis vaccine, adsorbed Phe 4 [employer] Payers Date Payer Category Payer Self-pay [id number] 2022 [facility] DICARE SUPPLEMENT [id number]. [id number] 2022 Medicare [id number]. 1.13.159.2. [id number] 2022 Unknown 1.2.840.386586. 1.13.159.2. 7.3.692800.315 2022 care--[place] to [place] OPTUM 1.2.840.743450.1.13.680.2. 7.9.511507.121229.315 2022 Medicare [id number] 2022 Unknown [id number] 2013 Unknown [id number] 2007 Private Health Insurance [facility] OPTUM [id number] 2007-Present [phone] [address] [place] [address] PPO [id number]. [id number] 2007 Unknown [id number] 1957 Unknown [id number] 2.16.840.1.900342.3.579.2. 903 1957 Unknown [id number] 2..840.1.587135.3.579.2. 594 1955 Unknown [id number] 2..840.1.244929.3.579.2. 594 Unknown [id number] Unknown [id number] Unknown [id number] 2.16.840.1.234180.3.579.2. 462 Unknown [id number] 2.16.840.1.467090.3.579.2. 462 Unknown [id number] 2.16.840.1.012403.3.579.2. 462 Unknown [id number] 2.16.840.1.321439.3.579.2. 462 Unknown [id number] 2.16.840.1.161304.3.579.2. 462 Unknown [id number] 2.16.840.1.052159.3.579.2. 462 Unknown [id number] 2.16.840.1.494356.3.579.2. 462 Unknown [id number] 2.16.840.1.284199.3.579.2. 462 Unknown [id number] 2.16.840.1.345177.3.579.2. 462 Unknown [id number] 2.16.840.1.080995.3.579.2. 462 Unknown [id number] 2.16.840.1.553319.3.579.2. 462 Unknown [id number] 2.16840.1.527482.3.579.2. 462 Unknown [id number] 2.16.840.1.560698.3.579.2. 462 Unknown [id number] 2.16.840.1.578193.3.579.2. 462 Unknown [id number] 2.16840.1.524815.3.579.2. 462 Unknown [id number] 2.16840.1.303046.3.579.2. 462 Unknown [id number] 2.840.1.921135.3.579.2. 462 Unknown [id number] 2.840.1.200449.3.579.2. 462 Unknown [id number] 2.840.1.527474.3.579.2. 462 Unknown [id number] 2.16840.1.075563.3.579.2. 462 Unknown [id number] 2.16840.1.201243.3.579.2. 462 Unknown [id number] 2.840.1.241036.3.579.2. 462 Unknown [id number] 2.16840.1.884908.3.579.2. 462 Unknown [id number] 2.840.1.717932.3.579.2. 462 Unknown [id number] 2.840.1.126671.3.579.2. 462 Social History Date Type Detail Facility Start: 12-19-2022 End: 03-22-2023 Tobacco smoking status WYIS Unknown if ever smoked [facility] Start: 06-11-2018 None [facility] Start: 07-21-2017 Spouse/ Significant Other [facility] Start: 07-21-2017 Non-smoker [facility] Start: 1955 Sex Assigned At Male [facility] Work Phone: Start: 05-31-2006 End: 02-06-2024 Alcohol intake Current drinker of alcohol (finding) [facility] Start: 10-29-2021 End: 01-15-2024 History of Social function [facility] Work Phone: Start: 10-29-2021 End: 12-16-2024 Area Deprivation Index [facility] Work Phone: Start: 03-25-2012 National Score (1-100), lower number is lower risk 59 [facility] Work Phone: Start: 1955 Sex Assigned At Not on file [facility] [employer] Work Phone: Start: 01-19-2024 End: 08-13-2024 Tobacco smoking status NHIS Ex-smoker [facility] Start: 1977 End: 1973 History of tobacco use Current smoker [facility] Start: 1977 End: 1973 History of tobacco use Cigarette Smoker [facility] History of tobacco use Passive smoker [facility] Start: 01-19-2024 Tobacco use and exposure Former smokeless tobacco user [facility] End: 02-11-2000 History of tobacco use Chews Tobacco [facility] Start: 11-22-2021 Sex Male (finding) [facility] [employer] Medical Equipment Procedure Code Equipment Code Equipment Original Text Equipment Identifier Dates [id number]_[facility] Start : 11-22-2017 [id number][facility] Start : 11-22-2017 [id number]_[facility] Start : 12-01-2017 Clip Atriclip Gillinov-Arlette 180d Long 35mm 25mm Internal Head - [id number] Start: 01-23-2024 Mabie Thk1.65mm P tfe 4x.5in Cardiovascular Sterile - [id number] Start: 01-23-2024 Band Suazo Ancor e 33mm Annuloplasty Chordal Guide - [id number] Start: 01-23-2024 Band Suazo Ancor e 31mm 77mm Annuloplasty Chordal Guide - [id number] Start: 01-23-2024 ([id number]) Extra-gynaecolog ical surgical mesh, composite-polymer [id number] FDA Start: 04-03-2023 Goals Date Patient Goal Desired Activity /State Personal health goal Functional Status Date Assessment Result Facility 12-16-2024 Functional Status right [employer] Work Phone: 12-16-2024 dependent [facility] Work Phone: 01-29-2024 Are you deaf, or do you have serious difficulty hearing No 01/29/2024 4:28 PM EDT Melida Eldridge RN No [facility] 01-29-2024 Are you blind, or do you have serious difficulty seeing, even when wearing glasses No 01/29/2024 4:28 PM EDT Melida Eldridge RN No [facility] 01-29-2024 Do you have serious difficulty walking or climbing stairs No 01/29/2024 4:28 PM EDT Melida Eldridge RN No [facility] 01-29-2024 Do you have difficul ty dressing or bathing No 01/29/2024 4:28 PM EDT Melida Eldridge RN No [facility] 01-29-2024 Because of a physica l, mental, or emotional condition, do you have difficulty doing errands alone such as visiting a physician's office or shopping No 01/29/2024 4:28 PM EDMelida Herr RN No [facility] 12-20-2022 Functional status Up ad raisa [facility] Work Phone: Mental Status Date Assessment Result Facility 01-29-2024 Because of a physica l, mental, or emotional condition, do you have serious difficulty concentrating, remembering, or making decisions No 01/29/2024 4:28 PM EDT Melida Eldridge, MICHAEL No [facility] 04-03-2023 Cognitive function Voice/Name [facility] Work Phone: 12-20-2022 Cognitive function Level Of Cons ciousness Awake;Alert;Appropriate [facility] Work Phone: 12-19-2022 Cognitive function Voice/Name [facility] Work Phone: Clinical Notes 12-19-2022 to 01-13-2025 Note Date & Type Note Facility 01-13-2025 Procedure note [facility] 01-13-2025 Evaluation note Diagnosis Onset Date 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 acute January 13, 2025 1:12pm Presence of left atrial appendage closure device acute January 13, 2025 1:12pm S/P Maze operation for atrial fibrillation acute January 13, 2025 1:12pm Atypical atrial flutter chronic January 13, 2025 1:12pm Presence of permanent cardiac pacemaker December 01, 2017 chronic January 13, 2025 1:12pm Sick sinus syndrome chronic [facility] 2024 1:12pm Dyspnea on exertion acute [facility] 2024 1:18pm S/P mitral valve repair acute January 13, 2025 1:18pm Atypical atrial flutter chronic January 13, 2025 1:18pm Essential (primary) hypertension chronic January 13, 2025 1:18pm Presence of permanent cardiac pacemaker December 01, 2017 chronic January 13, 2025 1:18pm S/P tricuspid valve repair chronic January 13, 2025 1:18pm [facility] Work Phone: 1(898) 842-479209-22-2025 Progress 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 He is a gentleman with history of atrial tachyarrhythmia status post ablationin 2005, 2017 and more recently in August 2018. He had initially presented with sinus bradycardia on the beta- blockerhad experienced some chest discomfort and underwent a cardiac catheterization with demonstrated essentially normal coronary arteries. 24-hour Holter monitor demonstrated periods of atrial fibrillation and flutter. He was sent to the [facility]. The more recent evaluation demonstrated areas of atrial flutter in the tricuspid annulus region. He also subsequently had a permanent pacemaker implanted after his radio frequency ablation in 2017. He had started experiencingmore atrial arrhythmias once again and he was sent backto [facility]. It was felt after discussing all the options that the sotalol should be discontinued and he was started on amiodarone. He had been following up at the [facility] due to insurance issues. He had a stress test in 2020. He did have an echocardiogram performed on September 13 at the [facility] and he was recorded to have a moderately dilated left ventricle with estimated ejection fractionof 60 to 65% right ventricle with a pacemaker placed in mitral valve which was normal with severe mitral regurgitation. He had echocardiogram in October 2023 at [facility] that showed ejection fraction of 60% and moderately severe eccentric mitral valve insufficiency. Transesophageal echocardiogram on 11/21/2023 showed severe mitral valve insufficiency. Heart catheterization on 11/21/2023 showed angiographically normal coronary arteries. He was seen with [facility], Dr. Diamond in January 2024. Mitral valve annuloplasty with size 33 mm Suazo annuloplasty band and corknot, tricuspid valve annuloplasty with size 31 mm Teddy annular plasty band, biatrial maze and radiofrequency and cryoablation, and left atrial appendage closure with a size 35 mm Atriclip. Postoperatively h is recovery was challenged by PEA arrest with resuscitation. Echocardiogram on01/29/2024 showed LV function 55?5%, mildly dilated right ventricle, #33 Mark mitral valve annuloplasty ring with trace mitral valve regurgitation, peak mitral valve gradient 15 mmHg, mean mitral valve gradient is 6 mmHg at a heart rate of 101 bpm, #31 during tricuspid valve annuloplasty ring with trace tricuspid valve regurgitation, peak tricuspid valve gradient 9 mmHg, and mean tricuspid valve gradient of 4 mmHg. Device check prior to discharge showed atrial fibrillation. It was recommended continue amiodarone, metoprolol, and resume Xarelto upon discharge. He denies chest, arm, jaw, or neck discomfort. He states palpitations occasionally. He denies bilateral lower extremity edema, but notes right lower extremity edema. He denies claudication. He statesshortness of breath with activity, shortness of breath at rest, and orthopnea. He denies PND. He denies chronic cough. He denies significant, sudden weight gain. He denies lightheadedness, dizziness,near-syncope, or syncope. He denies blood in urine,blood in stool, or epistaxis. He denies fever with chills. He denies myalgia. He states fatigue. His exercise level has remained stable.. 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 Accompanied by: Self Is patient in pain?: No Allergies Environmental Allergies: Uncoded (hay fever) Allergy (Verified 01/13/25 13:50) wheezing, cough Medications ?Medication ?Instructions ?Recorded ?Confirmed ?Type albuterol sulfate 90 mcg/actuation 2 puff inhalation Q 6H PRN PRN 07/21/17 01/13/25 History aerosol inhaler Wheezing/SOB lisinopril 20 mg tablet 20 mg PO DAILY 05/23/1812/24 History tadalafil 5 mg tablet 5 mg PO DAILY 12/19/2201/13 History cholecalciferol (vitamin D3) 50 50 mcg PO DAILY 01/13/25 History mcg (2,000 unit) capsule eplerenone 25 mg tablet (Inspra) 12.5 mg (1/2 x 25 mg) PO DAILY #30 11/13/23 01/13/25 Rx tabs acetaminophen 325 mg capsule 325 mg PO ONCE PRN 01/13/25 History diclofenac sodium 1 % topical gel 2 g topical ONCE PRN 02/14/24 01/13/25 History (Voltaren Arthritis Pain) empagliflozin 25 mg tablet 12.5 mg PO QAM 02/14/24 History potassium gluconate 595 mg (99 mg) 595 mg PO QDAY 01/2301/13/25 History tablet metoprolol succinate 50 mg 50 mg PO QDAY #90 tabs 02/2301/13/25 Rx tablet,extended release 24 hr amoxicillin 500 mg capsule 2,000 mg PO ONCE PRN 01/13/25 History rivaroxaban 20 mg tablet 20 mg PO QDAY 09/18/2401/13 History furosemide 20 mg tablet 20 mg PO QAM 01/13/25 History Ejection fraction %: 60 Have you fallen in the past year?: No PFSH Medical History History of pacemaker Wears hearing aid Wears glasses PTSD (post-traumatic stress disorder) Anxiety Arthritis Vertigo Former smoker CPAP (continuous positive airway pressure) dependence History of pain when walking History of stress test Hypertension History of echocardiogram Cardiology follow-up encounter History of atrial fibrillation Acute posterior anal fissure Hemorrhoids, internal, with bleeding Paroxysmal atrial fibrillation Secondary pulmonary arterial hypertension Essential (primary) hypertension Chronic diastolic (congestive) heart failure Asthma Sick sinus syndrome Atypical atrial flutter Bradycardia Morbid obesity with BMI of 40.0-44.9, adult Surgical History History of open heart surgery S/P hernia repair S/P total knee replacement (08/08/23) History of umbilical hernia repair Hx of laparoscopy Status post bilateral hernia repair History of colonoscopy (11/25/19) History of hemorrhoidectomy History of left heart catheterization (07/21/17) Presence of permanent cardiac pacemaker (12/01/17) History of cardioversion (06/11/18) History of cardiac radiofrequency ablation (08/24/18) Family History Mother Diabetes Hypertension Father Cancer prostate Other CVA (cerebral vascular accident) Social History household members: spouse Smoking Status: Former smoker how long ago did patient quit smokin alcohol intake: current alcohol intake frequency: holidays/special occasions only substance use type: does not use caffeine: Yes Type: carbonated beverages Number of servings: 5 and coffee ROS Const Const: Positive for fatigue and weakness (legs) Eyes Eyes: Negative for change in vision ENT ENT: Positive for balance problems Cardio Chest Pain: No Palpitations: Yes feels like its: other (Occasional) Edema: Right (Possibly from neuropathy) Muscle aches with walking: None Resp Respiratory: Positive for SOB with activity, SOB at rest and SOB orthopnea\SOB lying down GI GI: Negative nausea or heartburn : Negative for hematuria or frequent nighttime urination/ nocturia Musc Musc: Positive for balance problems Skin Skin: Negative non-healing lesions or rash Neuro Neuro: Positive for weakness (legs); Negative for lightheadedness, near syncope or syncope Endo Endo: Positive for fatigue Allergy Allergy/Immunology: Negative for rash Cardiology Exam Const Appearance: cooperative, healthy appearing, comfortable and no acute distress Nutritional Appearance: well nourished and obese Orientation: alert, awake and oriented x3 Head Head: normal to inspection Ears: hearing grossly normal bilaterally Nose: external nose normal Face and Sinus: face symmetric Mouth: moist mucous membranes Eyes General: appearance normal, both eyes and all related structures Eyelids: eyelids normal EOM: EOM intact bilaterally Neck Neck: normal visual inspection and no JVD Carotids: normal carotid upstroke Chest Chest inspection: normal inspection of the chest, symmetric chest movement and normal respiratory effort; Negative cough Auscultation: Bilateral: Diminished Lung Sounds and Right: Expiratory Wheezes (RUL) Cardio Rate: regular rate Rhythm: regular rhythm Heart sounds: S1 normal and S2 normal; Negative rub, gallop or murmur GI GI: normal to inspection and obese Neuro General: patient alert, patient awake, patient oriented x3 and CN's II-XI intactbilaterally Skin Skin: no rashes or lesions noted Extremities Pulses: Normal: Right Posterior Tibial Pulse, Left Posterior Tibial Pulse, RightRadial Pulse and Left Radial Pulse Lower Extremity Edema: None: Bilateral Psych Psychological: normal affect Supplemental Info Supplemental Information Echocardiogram from 10/24/2024: Interpretation Summary Normal LV size. The left ventricular ejection fraction is 60 %. Status post mitral valve repair with annuloplasty ring. Moderate concentric left ventricular hypertrophy. Pulmonary artery systolic pressure is 42 mmHg. ECHO/Echo Transesophageal (ELEN)10/2023 Interpretation Summary Normal LV size. The left ventricular ejection fraction is 60 %. The left atrium is moderately enlarged. Patent foramen ovale. Bileaflet diffuse mitral valve thickening. Severe (4+) eccentric mitral valve insufficiency. Heart catheterization from 11/21/2023: CONCLUSIONS Normal coronary arteries 2-3+ mitral regurgitation. RECOMMENDATIONS ELEN and consider MV surgery. CORONARY ANGIOGRAPHY DOMINANCE: Right Dominant LEFT HEART ASSESSMENT Left Ventricular Ejection Fraction: by LV Gram 55 % Normal LV wall motion Normal Left Ventricular systolic function LEFT MAIN: Angiographically normal LEFT ANTERIOR DESCENDING ARTERY: Angiographically normal CIRCUMFLEX ARTERY: Angiographically normal RIGHT CORONARY ARTERY: Angiographically normal VALVE FINDINGS: Mitral Valve Insufficiency - Grade 2 Mitral Valve Insufficiency - Grade 3 Stress Test 06/13/20 ([facility]) Interpretation Summary This pharmacological stress nuclear perfusion scan is negative for ischemia. There is a small apical and septal apical fixed defect that likely represents apical thinning vs artifact related to pacedrhythm though an old infarct cannotbe ruled out. Assessment and Plan Assessment and Plan (1) Dyspnea on exertion: Status: Acute Plan: He was seen in the Emergency Department on 08/13/2024 for shortness of breath. He was treated with antibiotic and steroid therapy. Though improved, he does not feel that he has returned to baseline. He underwent laboratory testing on 08/13/2024 that showed hemoglobin 12.3. He had proBNP negative on 09/18/2024 at 538. He had a repeat echocardiogram on 10/24/2024 that showed LV function 60% andpulmonaryartery systolic pressure of 42 mmHg. He was encouraged to continue tofollow primary care provider for noncardiac etiology. We discussed potentially adding GLP-1 medication to assist with weight loss to improve his symptoms. He will think this over and contact office if he wishes to proceed. Heart ca theterization October 2023 showed angiographically normal coronary arteries. Hisactivity is also limited by neuropathy, which he is following with primary care provider. (2) Presence of permanent cardiac pacemaker: Status: Chronic Plan: Device report on 01/13/2025 showed atrial paced 100%, ventricular paced 99%, battery life less than 3 months, no MS episodes, and no VT/VF episodes. He willproceed with generator change on 01/27/2025. Patient's device appears to be functioning appropriately. We will continue to monitor this with portillo barragan/scheduled follow-ups. (3) S/P mitral valve repair: Status: Acute Comment: 01/23/24 Plan: Echocardiogram on 10/24/2024 showed LV function 60%, severely enlarged left atrium, moderately enlarged right atrium, and pulmonary artery systolic xgrxyols36 mmHg. He will continue current medical therapy and we will continue to monitor. (4) S/P tricuspid valve repair: Status: Chronic Comment: 01/23/2024 Plan: This appears stable. He will continue current medical therapy and we will continue to monitor. (5) Essential (primary) hypertension: Status: Chronic Plan: Patient's blood pressure is well-controlled. We will continue to monitor. We will not make any medication regimen changes. (6) Atypical atrial flutter: Status: Chronic Comment: RFA 2005, 2017, 2018 Plan: He is status post radiofrequency ablation 2005, 2017, and 2018. In January 2024,he proceeded with biatrial maze procedure with radiofrequency and cryoablation along with left atrial appendage closure. He is currently on metoprolol for rateand rhythm control. He is on Xarelto for CVA protection. As h e was maintainingsinus rhythm, his amiodarone was discontinued. Twelve-lead ECG on 01/13/2025 shows AV paced rhythm. Device report on 01/13/2025 shows no MS episodes. Orders: Orders 12 Lead EKG performed by [facility] Z95.0 - Presence of cardiac pacemaker Plan Details Additional Comments: Thank you for allowing us to participate in the patients plan of care, if you have any questions please do not hesitate to call. Plan was reviewed with patient/family member along with red flag symptoms. Understanding was acknowledged. Questions were answered to apparent satisfaction. This note was generated using a voice recognition system and there may be incorrect words, spellingor punctuation that were not noted when reviewing the office note prior to saving. Portions of this documentation were copied and pasted from previous office visitnotes to provide a cohesive continuity of the history. The note has been reviewed, edited, and updated, as necessary. Follow Up: 12-15 Months (BELLY PACKER) 6 Months (SENIOR ARCHITECT/DESIGN MANAGER/PA) Coding Level of Care Code Off vis,est,level 4 Diagnoses Dyspnea on exertion R06.09 Presence of permanent cardiac pacemaker Z95.0 S/P mitral valve repair Z98.890 S/P tricuspid valve repair Z98.890 Essential (primary) hypertension I10 Atypical atrial flutter I48.4 Coding Level of Care Code Off vis,est,level 4 Diagnoses Dyspnea on exertion R06.09 Presence of permanent cardiac pacemaker Z95.0 S/P mitral valve repair Z98.890 S/P tricuspid valve repair Z98.890 Essential (primary) hypertension I10 Atypical atrial flutter I48.4 Clinical Quality Measures Falls Risk Screening/Assistive Devices Have you fallen in the past year?: No Cardiac Ejection fraction %: 60 01/13/25 1452 P SENIOR ARCHITECT/DESIGN MANAGER-C> Date _ Evelyn OROPEZA Cosigner Signature: Date (if applicable) CC: [facility]09-22-2025 Progress note Author Evelyn Deleon [facility] Note Date/Time January 13, 2025 2:41pm [facility] [address] [place], [place] [address]e. [address] [place] [address] OFFICE VISIT Date of Service: 01/13/25 MR#: [id number] Acct: [id number] Name: TRE QUIÑONES Rep #: [id number] : 1955 Provider: JOHNNA Deleon Age/Sex: 69/M [place] [facility] [place] Status: Signed HPI HPI History of Present Illness Details: TRE QUIÑONES, is a 69 M who presents to the office today for a follow-up visitas well as a revisit and second opinion.. He is a gentleman with history of atrial tachyarrhythmia status post ablation in 2005, 2017 and more recently in August 2018. He had initially presented with sinus bradycardia on the beta-blockerhad experienced some chest discomfort and underwent a cardiac catheterization with demonstrated essentially normal coronary arteries. 24-hour Holter monitor demonstrated periods of atrial fibrillation and flutter. He was sent to the [facility]. The more recent evaluation demonstrated areas of atrial flutter in the tricuspid annulus region. He also subsequently had a permanent pacemaker implanted after his radio frequency ablation in 2018. He had started experiencing more atrial arrhythmias once again and he was sent backto [facility]. It was felt after discussing all the options that the sotalol should be discontinued and he was started on amiodarone. [facility] [facility] due to insurance issues. He had a stress test in 2020. He did have an echocardiogram performed on September 13 at the [facility] and he was recorded to have a moderately dilated left ventricle with estimated ejection fraction of 60 to 65% right ventricle with a pacemaker placed in mitral valve which was normal with severe mitral regurgitation. He had echocardiogram in October 2023 at [facility] that showed ejection fraction of 60% and moderately severe eccentric mitral valve insufficiency. Transesophageal echocardiogram on 11/21/2023 showed severe mitral valve insufficiency. Heart catheterization on 11/21/2023 showed angiographically normal coronary arteries. He was seen with [facility], Dr. Diamond in January 2024. Mitral valve annuloplasty with size 33 mm Suazo annuloplasty band and corknot, tricuspid valve annuloplasty with size 31 mm Teddy annular plasty band, biatrial maze and radiofrequency and cryoablation, and left atrial appendage closure with a size 35 mm Atriclip. Postoperatively his recovery was challenged by PEA arrest with resuscitation. Echocardiogram on01/29/2024 showed LV function 55?5%, mildly dilated right ventricle, #33 Mark mitral valve annuloplasty ring with trace mitral valve regurgitation, peak mitral valve gradient 15 mmHg, mean mitral valve gradient is 6 mmHg at a heart rate of 101 bpm, #31 during tricuspid valve annuloplasty ring with trace tricuspid valve regurgitation, peak tricuspid valve gradient 9 mmHg, and mean tricuspid valve gradient of 4 mmHg. Device check prior to discharge showed atrial fibrillation. It was recommended continue amiodarone, metoprolol, and resume Xarelto upon discharge. He denies chest, arm, jaw, or neck discomfort. He states palpitations occasionally. He denies bilateral lower extremity edema, but notes right lower extremity edema. He denies claudication. He states shortness of breath with activity, shortness of breath at rest, and orthopnea. He denies PND. He denies chronic cough. He denies significant, sudden weight gain. He denies lightheadedness, dizziness, near- syncope, or syncope. He denies blood in urine,blood in stool, or epistaxis. He denies fever with chills. He denies myalgia. He states fatigue. His exercise level has remained stable.. 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 Accompanied by: Self Is patient in pain?: No Allergies Environmental Allergies: Uncoded (hay fever) Allergy (Verified 01/13/25 13:50) wheezing, cough Medications ?Medication ?Instructions ?Recorded ?Confirmed ?Type albuterol sulfate 90 mcg/actuation 2 puff inhalation Q 6H PRN PRN 07/21/17 01/13/25 History aerosol inhaler Wheezing/SOB lisinopril 20 mg tablet 20 mg PO DAILY 05/23/1812/24 History tadalafil 5 mg tablet 5 mg PO DAILY 12/19/2201/13 History cholecalciferol (vitamin D3) 50 50 mcg PO DAILY 01/13/25 History mcg (2,000 unit) capsule eplerenone 25 mg tablet (Inspra) 12.5 mg (1/2 x 25 mg) PO DAILY #30 11/13/23 01/13/25 Rx tabs acetaminophen 325 mg capsule 325 mg PO ONCE PRN 01/13/25 History diclofenac sodium 1 % topical gel 2 g topical ONCE PRN 02/14/24 01/13/25 History (Voltaren Arthritis Pain) empagliflozin 25 mg tablet 12.5 mg PO QAM 02/14/24 History potassium gluconate 595 mg (99 mg) 595 mg PO QDAY 01/2301/13/25 History tablet metoprolol succinate 50 mg 50 mg PO QDAY #90 tabs 02/2301/13/25 Rx tablet,extended release 24 hr amoxicillin 500 mg capsule 2,000 mg PO ONCE PRN 01/13/25 History rivaroxaban 20 mg tablet 20 mg PO QDAY 09/18/2401/13 History furosemide 20 mg tablet 20 mg PO QAM 01/13/25 History Ejection fraction %: 60 Have you fallen in the past year?: No PFSH Medical History History of pacemaker Wears hearing aid Wears glasses PTSD (post-traumatic stress disorder) Anxiety Arthritis Vertigo Former smoker CPAP (continuous positive airway pressure) dependence History of pain when walking History of stress test Hypertension History of echocardiogram Cardiology follow-up encounter History of atrial fibrillation Acute posterior anal fissure Hemorrhoids, internal, with bleeding Paroxysmal atrial fibrillation Secondary pulmonary arterial hypertension Essential (primary) hypertension Chronic diastolic (congestive) heart failure Asthma Sick sinus syndrome Atypical atrial flutter Bradycardia Morbid obesity with BMI of 40.0-44.9, adult Surgical History History of open heart surgery S/P hernia repair S/P total knee replacement (08/08/23) History of umbilical hernia repair Hx of laparoscopy Status post bilateral hernia repair History of colonoscopy (11/25/19) History of hemorrhoidectomy History of left heart catheterization (07/21/17) Presence of permanent cardiac pacemaker (12/01/17) History of cardioversion (06/11/18) History of cardiac radiofrequency ablation (08/24/18) Family History Mother Diabetes Hypertension Father Cancer prostate Other CVA (cerebral vascular accident) Social History household members: spouse Smoking Status: Former smoker how long ago did patient quit smokin alcohol intake: current alcohol intake frequency: holidays/special occasions only substance use type: does not use caffeine: Yes Type: carbonated beverages Number of servings: 5 and coffee ROS Const Const: Positive for fatigue and weakness (legs) Eyes Eyes: Negative for change in vision ENT ENT: Positive for balance problems Cardio Chest Pain: No Palpitations: Yes feels like its: other (Occasional) Edema: Right (Possibly from neuropathy) Muscle aches with walking: None Resp Respiratory: Positive for SOB with activity, SOB at rest and SOB orthopnea\SOB lying down GI GI: Negative nausea or heartburn : Negative for hematuria or frequent nighttime urination/ nocturia Musc Musc: Positive for balance problems Skin Skin: Negative non-healing lesions or rash Neuro Neuro: Positive for weakness (legs); Negative for lightheadedness, near syncope or syncope Endo Endo: Positive for fatigue Allergy Allergy/Immunology: Negative for rash Cardiology Exam Const Appearance: cooperative, healthy appearing, comfortable and no acute distress Nutritional Appearance: well nourished and obese Orientation: alert, awake and oriented x3 Head Head: normal to inspection Ears: hearing grossly normal bilaterally Nose: external nose normal Face and Sinus: face symmetric Mouth: moist mucous membranes Eyes General: appearance normal, both eyes and all related structures Eyelids: eyelids normal EOM: EOM intact bilaterally Neck Neck: normal visual inspection and no JVD Carotids: normal carotid upstroke Chest Chest inspection: normal inspection of the chest, symmetric chest movement and normal respiratory effort; Negative cough Auscultation: Bilateral: Diminished Lung Sounds and Right: Expiratory Wheezes (RUL) Cardio Rate: regular rate Rhythm: regular rhythm Heart sounds: S1 normal and S2 normal; Negative rub, gallop or murmur GI GI: normal to inspection and obese Neuro General: patient alert, patient awake, patient oriented x3 and CN's II-XI intactbilaterally Skin Skin: no rashes or lesions noted Extremities Pulses: Normal: Right Posterior Tibial Pulse, Left Posterior Tibial Pulse, RightRadial Pulse and Left Radial Pulse Lower Extremity Edema: None: Bilateral Psych Psychological: normal affect Supplemental Info Supplemental Information Echocardiogram from 10/24/2024: Interpretation Summary Normal LV size. The left ventricular ejection fraction is 60 %. Status post mitral valve repair with annuloplasty ring. Moderate concentric left ventricular hypertrophy. Pulmonary artery systolic pressure is 42 mmHg. ECHO/Echo Transesophageal (ELNE)10/2023 Interpretation Summary Normal LV size. The left ventricular ejection fraction is 60 %. The left atrium is moderately enlarged. Patent foramen ovale. Bileaflet diffuse mitral valve thickening. Severe (4+) eccentric mitral valve insufficiency. Heart catheterization from 11/21/2023: CONCLUSIONS Normal coronary arteries 2-3+ mitral regurgitation. RECOMMENDATIONS ELEN and consider MV surgery. CORONARY ANGIOGRAPHY DOMINANCE: Right Dominant LEFT HEART ASSESSMENT Left Ventricular Ejection Fraction: by LV Gram 55 % Normal LV wall motion Normal Left Ventricular systolic function LEFT MAIN: Angiographically normal LEFT ANTERIOR DESCENDING ARTERY: Angiographically normal CIRCUMFLEX ARTERY: Angiographically normal RIGHT CORONARY ARTERY: Angiographically normal VALVE FINDINGS: Mitral Valve Insufficiency - Grade 2 Mitral Valve Insufficiency - Grade 3 Stress Test 06/13/20 ([facility]) Interpretation Summary This pharmacological stress nuclear perfusion scan is negative for ischemia. There is a small apical and septal apical fixed defect that likely represents apical thinning vs artifact related to paced rhythm though an old infarct cannotbe ruled out. Assessment and Plan Assessment and Plan (1) Dyspnea on exertion: Status: Acute Plan: He was seen in the Emergency Department on 08/13/2024 for shortness of breath. He was treated with antibiotic and steroid therapy. Though improved, he does not feel that he has returned to baseline. He underwent laboratory testing on 08/13/2024 that showed hemoglobin 12.3. He had proBNP negative on 09/18/2024 at 538. He had a repeat echocardiogram on 10/24/2024 that showed LV function 60% andpulmonary artery systolic pressure of 42 mmHg. He was encouraged to continue tofollow primary care provider for noncardiac etiology. We discussed potentially adding GLP-1 medication to assist with weight loss to improve his symptoms. He will think this over and contact office if he wishes to proceed. Heart catheterization October 2023 showed angiographically normal coronary arteries. Hisactivity is also limited by neuropathy, which he is following with primary care provider. (2) Presence of permanent cardiac pacemaker: Status: Chronic Plan: Device report on 01/13/2025 showed atrial paced 100%, ventricular paced 99%, battery life less than 3 months, no MS episodes, and no VT/VF episodes. He willproceed with generator change on 01/27/2025. Patient's device appears to be functioning appropriately. We will continue to monitor this with routine/scheduled follow- ups. (3) S/P mitral valve repair: Status: Acute Comment: 01/23/24 Plan: Echocardiogram on 10/24/2024 showed LV function 60%, severely enlarged left atrium, moderately enlarged right atrium, and pulmonary artery systolic [id number] mmHg. He will continue current medical therapy and we will continue to monitor. (4) S/P tricuspid valve repair: Status: Chronic Comment: 01/23/2024 Plan: This appears stable. He will continue current medical therapy and we will continue to monitor. (5) Essential (primary) hypertension: Status: Chronic Plan: Patient's blood pressure is well-controlled. We will continue to monitor. We will not make any medication regimen changes. (6) Atypical atrial flutter: Status: Chronic Comment: RFA 2005, 2017, 2018 Plan: He is status post radiofrequency ablation 2005, 2017, and 2018. In January 2024,he proceeded with biatrial maze procedure with radiofrequency and cryoablation along with left atrial appendage closure. He is currently on metoprolol for rateand rhythm control. He is on Xarelto for CVA protection. As he was maintainingsinus rhythm, his amiodarone was discontinued. Twelve-lead ECG on 01/13/2025 shows AV paced rhythm. Device report on 01/13/2025 shows no MS episodes. Orders: Orders 12 Lead EKG performed by [facility] Z95.0 - Presence of cardiac pacemaker Plan Details Additional Comments: Thank you for allowing us to participate in the patients plan of care, if you have any questions please do not hesitate to call. Plan was reviewed with patient/family member along with red flag symptoms. Understanding was acknowledged. Questions were answered to apparent satisfaction. This note was generated using a voice recognition system and there may be incorrect words, spelling or punctuation that were not noted when reviewing the office note prior to saving. Portions of this documentation were copied and pasted from previous office visitnotes to provide a cohesive continuity of the history. The note has been reviewed, edited, and updated, as necessary. Follow Up: 12-15 Months (BELLY PACKER) 6 Months (SENIOR ARCHITECT/DESIGN MANAGER/PA) Coding Level of Care Code Off vis,est,level 4 Diagnoses Dyspnea on exertion R06.09 Presence of permanent cardiac pacemaker Z95.0 S/P mitral valve repair Z98.890 S/P tricuspid valve repair Z98.890 Essential (primary) hypertension I10 Atypical atrial flutter I48.4 Coding Level of Care Code Off vis,est,level 4 Diagnoses Dyspnea on exertion R06.09 Presence of permanent cardiac pacemaker Z95.0 S/P mitral valve repair Z98.890 S/P tricuspid valve repair Z98.890 Essential (primary) hypertension I10 Atypical atrial flutter I48.4 Clinical Quality Measures Falls Risk Screening/Assistive Devices Have you fallen in the past year?: No Cardiac Ejection fraction %: 60 01/13/25 1452 <Electronically signed by Evelyn Deleon N P SENIOR ARCHITECT/DESIGN MANAGERErichC> Date _ Evelyn Deleon NP SENIOR ARCHITECT/DESIGN MANAGER-C Cosigner Signature: Date (if applicable) CC: [facility] Work Phone: 1(835) 465-815608-21-2025 History of Present illness Narrative* Jerardo Porras RT(R) - 12/12/2024 10:20 AM EDT Radiology Service Progress Note PATIENT NAME: Tre Quiñones DATE OF SERVICE: December 12, 2024 TIME: 10:55 AM PATIENT IDENTITY VERIFICATION COMPLETED USING TWO (2) IDENTIFIERS: Name and Date of confirmedby patient verbally and Name and Date of confirmed by identification band. FALL SCREENING: Has the patient had 2 falls in the last year or 1 fall with injury or currently using an Ambulatory Assistive Device (Walker, Cane, Wheelchair, Crutches, etc.)? No PATIENT GENDER DATA: Assigned male at PATIENT RELEVANT IMPLANT DATA REVIEWED: Yes MR Conditional CIED Pop[employer] Remote programming PATIENT PRESENTS WITH AN IMPLANTABLE OR ATTACHED [employer]CHOOL SPECIAL EDUCATION TEACHER: No RADIOLOGY DEPARTMENT: MR; Exam(s) Completed: Lower MSK: Ankle/Hind Foot, right . Aromatherapy Administered: No PERIPHERAL IV DATA: Not applicable Images approved by Dr. Olivo @11:18 am SIGNED BY: RT Prachi(R) December 12, 2024 10:55 AM [facility] NoteHNO ID: [id number] Author: JERARDO PORRAS RT(R) Service: Radiology Author Type: Technologist Type: Progress Notes Filed: 12/12/2024 12:45 Note Text: Radiology Service Progress Note PATIENT NAME: Tre Quiñones DATE OF SERVICE: December 12, 2024 TIME: 10:55 AM PATIENT IDENTITY VERIFICATION COMPLETED USING TWO (2) IDENTIFIERS: Name and Date of confirmed by patient verbally and Name and Date of confirmed by identification band. FALL SCREENING: Has the patient had 2 falls in the last year or 1 fall with injury or currently using an Ambulatory Assistive Device (Walker, Cane, Wheelchair, Crutches, etc.)? No PATIENT GENDER DATA: Assigned male at PATIENT RELEVANT IMPLANT DATA REVIEWED: Yes MR Conditional CIED [employer] Remote programming PATIENT PRESENTS WITH AN IMPLANTABLE OR ATTACHED [employer]CHO[employer] SPECIAL EDUCATION TEACHER: No RADIOLOGY DEPARTMENT: MR; Exam(s) Completed: Lower MSK: Ankle/Hind Foot, right . Aromatherapy Administered: No PERIPHERAL IV DATA: Not applicable Images approved by Dr. Olivo @11:18 am SIGNED BY: RT Prachi(R) December 12, 2024 10:55 [facility]08-21-2025 NoteHNO ID: [id number] Author: MADY BLUNT RN Service: Nursing Author Type: Registered Nurse Type: Procedures Filed: 12/12/2024 11:18 Note Text: Radiology Service Progress Note PATIENT NAME: Tre Quiñones DATE OF SERVICE: December 12, 2024 TIME: 11:18 AM PATIENT IDENTITY VERIFICATION COMPLETED USING TWO (2) STANDARD IDENTIFIERS: Name and Date of confirmed by patient verbally. PATIENT GENDER DATA: Assigned male at PATIENT RELEVANT IMPLANT DATA REVIEWED: Yes ALLERGIES: Reviewed and unchanged MEDICATIONS REVIEWED: YES PROCEDURE: MRI - Conditional Pacemaker [employer] Curatorial Assistant Device - Settings: VOO 70 bpm Physiologic monitoring per standard operating procedure. See vital sign flowsheet. PATIENT TOLERATED PROCEDURE: Without incident. PATIENT DISCHARGED TO: Home/Self Care SIGNED BY: Mady Blunt [facility]08-21-2025 Procedure note* Mady Blunt RN - 12/12/2024 10:20 AM EDT Radiology Service Progress Note PATIENT NAME: Tre ARGUELLON: [id number] DATE OF SERVICE: December 12, 2024 TIME: 11:18 AM PATIENT IDENTITY VERIFICATION COMPLETED USING TWO (2) STANDARD IDENTIFIERS: Name and Date of confirmed by patient verbally. PATIENT GENDER DATA: Assigned male at PATIENT RELEVANT IMPLANT DATA REVIEWED: Yes ALLERGIES: Reviewed and unchanged MEDICATIONS REVIEWED: YES PROCEDURE: MRI - Conditional Pacemaker [employer] Curatorial Assistant Device - Settings: VOO 70 bpm Physiologic monitoring per standard operating procedure. See vital sign flowsheet. PATIENT TOLERATED PROCEDURE: Without incident. PATIENT DISCHARGED TO: Home/Self Care SIGNED BY: Mady Blunt RN [facility]08-21-2025 Procedure note* Mady Blunt RN - 12/12/2024 10:20 AM EDT Radiology Service Progress Note PATIENT NAME: Tre Quiñones DATE OF SERVICE: December 12, 2024 TIME: 11:18 AM PATIENT IDENTITY VERIFICATION COMPLETED USING TWO (2) STANDARD IDENTIFIERS: Name and Date of confirmed by patient verbally. PATIENT GENDER DATA: Assigned male at PATIENT RELEVANT IMPLANT DATA REVIEWED: Yes ALLERGIES: Reviewed and unchanged MEDICATIONS REVIEWED: YES PROCEDURE: MRI - Conditional Pacemaker [employer] Curatorial Assistant Device - Settings: VOO 70 bpm Physiologic monitoring per standard operating procedure. See vital sign flowsheet. PATIENT TOLERATED PROCEDURE: Without incident. PATIENT DISCHARGED TO: Home/Self Care SIGNED BY: Mady Blunt RN documented [facility] History of Present illness Narrative* Denny Cifuentes MD - 11/01/2024 8:50 AM EDT Images from the original note were not included. Denny Cifuentes MD 11/01/2024 at 12:15 PM OFFICE FOLLOW-UP VISIT PATIENT NAME: Tre Quiñones DATE OF : 1955 TODAY'S DATE: 11/01/2024 CHIEF COMPLAINT: Chief Complaint Patient presents with Other Annual follow up, medication refills Denies uti symptoms, denies worsening or new urinary concerns Subjective: Mr. Quiñones is a 69 y.o. male who presents to the office for follow up of erectile dysfunction. The tadalafil 5 mg daily does not seem to be working as well as it used to. No voiding issues. Review of Systems Past Medical History: Medical History[1] Past Surgical History: Surgical History[2] Allergies: Gramineae pollens, Hydrochlorothiazide, Influenza vaccines, and Sildenafil Social History: Issues identified in the H&P were noted Family History: Family History[3] Medications Prior to Admission medications Medication Sig Start Date End Date Taking? Authorizing Provider fexofenadine-pseudoephedrine ER (Apurva-D) 60-120 MG 12 hr tablet Take by mouth. 08/12/24 Yes Historical Provider, fluticasone (Flonase) 50 MCG/ACT nasal spray Administer into affected nostril(s). 02/20/24 Yes Historical Provider, furosemide (Lasix) 40 MG tablet Take 2 tablets by mouth in the morning, and then take 1 tablet in the evening 03/01/24 Yes Historical Provider, lisinopril 20 MG tablet Take 20 mg by mouth daily. 07/08/24 Yes Historical Provider, metoprolol succinate XL (Toprol-XL) 50 MG 24 hr tablet Take 50 mg by mouth daily. 07/08/24 Yes Historical Provider, pregabalin (Lyrica) 75 MG capsule Take 75 mg by mouth 2 times daily. 07/08/24 Yes Historical Provider, rivaroxaban (Xarelto) 20 MG tablet Take 20 mg by mouth. 07/02/24 Yes Historical Provider, albuterol 108 (90 Base) MCG/ACT inhaler Inhale 2 puffs every 6 hours as needed. Historical Provider, tadalafil (Cialis) 10 MG tablet Take 1 tablet (10 mg) by mouth Daily as needed for erectile dysfunction. 11/01/24 12/01/24 Denny Cifuentes MD tadalafil (Cialis) 5 MG tablet Take 1 tablet (5 mg) by mouth every morning. 11/01/24 01/30/25 Denny Cifuentes MD tadalafil (Cialis) 5 MG tablet Take 1 tablet (5 mg) by mouth every morning. 11/06/23 11/01/24 Denny Cifuentes MD Vitals: BP 129/64 (BP Location: Left arm, Patient Position: Sitting, BP Cuff Size: Large adult) Pulse 60 Physical Exam Physical Exam Constitutional: Appearance: Normal appearance. HENT: Head: Normocephalic and atraumatic. Eyes: Extraocular Movements: Extraocular movements intact. Pulmonary: Effort: Pulmonary effort is normal. Musculoskeletal: General: Normal range of motion. Cervical back: Normal range of motion. Neurological: General: No focal deficit present. Mental Status: He is alert and oriented to person, place, and time. Psychiatric: Mood and Affect: Mood normal. Behavior: Behavior normal. Thought Content: Thought content normal. Judgment: Judgment normal. LABS: 07/01/2024: [place]: 1.388 ([place]) Radiology: Impression/Plan Tre was seen today for other. Diagnoses and all orders for this visit: Erectile dysfunction, unspecified erectile dysfunction type (Primary) Follow up if symptoms worsen or fail to improve. OK to continue tadalafil 5 mg daily Add tadalafil 10 mg intermittent prior to sexual activity I have discussed in great detail with the patient the treatment of erectile dysfunction using phosphodiesterase-5 inhibitors such as sildenafil, tadalafil, or vardenafil. I explained that this medication cannot be given if the patient takes any nitrates. I explained the side-effects such as headache, blue vision, indigestion and the chance or priapism. I discussed risk factors which include beingover age 50, heart disease, diabetes, high blood pressure, high cholesterol and smoking. I did warnhim about the possibility of a lowering of the blood pressure with this medication. I advised him to take the medication approximately 1 hour before his desire for an erection, and that he should avoid any food intake for an hour before the medication in order to maximize the result of the medication. The patient expressed an understanding of the treatment, possible reactions, and possible prognosis. Denny Cifuentes MD 11/01/24 12:15 PM [1] No past medical history on file. [2] No past surgical history on file. [3] No family history on file. documented in this [facility]05-28-2025 Evaluation note* Diagnosis Onset Date Resolution Status Admit Date Dyspnea on exertion acute August 232024 11:24am S/P mitral valve repair acute M ay 2024 11:24am Atypical atrial flutter chronic M ay 2024 11:24am Essential (primary) hypertension chronic September 18, 2024 11:24am Presence of permanent cardiac pacemaker December 01, 2017 chronic September 18, 11:24am S/P tricuspid valve repair chronic September 18, 2024 11:24am [facility] Work Phone: 1(555) 555-778411-11-2024 Telephone encounter Note* Telephone Encounter - López Campbell RN - 03/04/2024 1:43 PM EST Images from the original note were not included. [facility] Phone Encounter DATE of SERVICE: 03/04/2024 TIME of SERVICE: 1:43 PM Status: FYI Service/Provider: Cardiac Surgery Tunde Diamond M.D. Reason for call: Shortness of Breath Contact information: [phone] Resolution: Reinforced education Comments: patient called to say he is still experiencing shortness of breath on exertion especiallywith steps. Advised patient that it was a normal part of the healing process and to continue to usehis incentive spirometer 5-10 times an hour while awake. Patient does not have SOB while sitting. O2 sat is 97% HR in the 60's. Encouraged patient to monitor and if SOB increases while at rest or patient experiences dizziness, lightheadedness, blurred vision to seek further evaluation at local ER. Patient agreeable. López Campbell RN Date of Resolution: 03/04/2024 Time of Resolution 1:43 PM [facility]11-11-2024 Miscellaneous Notes* Telephone Encounter - López Campbell RN - 03/04/2024 1:43 PM EST Images from the original note were not included. [facility] [facility] Encounter DATE of SERVICE: 03/04/2024 TIME of SERVICE: 1:43 PM Status: FYI Service/Provider: Cardiac Surgery Tunde Dimaond M.D. Reason for call: Shortness of Breath Contact information: [phone] Resolution: Reinforced education Comments: patient called to say he is still experiencing shortness of breath on exertion especiallywith steps. Advised patient that it was a normal part of the healing process and to continue to usehis incentive spirometer 5-10 times an hour while awake. Patient does not have SOB while sitting. O2 sat is 97% HR in the 60's. Encouraged patient to monitor and if SOB increases while at rest or patient experiences dizziness, lightheadedness, blurred vision to seek further evaluation at local ER. Patient agreeable. López Campbell RN Date of Resolution: 03/04/2024 Time of Resolution 1:43 PM documented in this encounterSam[facility]10-15-2024 Instructions* Patient Instructions* Liz Madsen APRN.CNP - 02/06/2024 9:04 AM EDT Follow up with PCP next week with repeat cbc and cmp to monitor trends. Follow up with deputy editor in chief in 4-6 weeks with consideration of repeat echo.Cardiology to determine clearance for return to work and order Cardiac Rehab Phase II if not already given at the time of discharge. No further refills unless specified by local providers. documented in this encounterSamaritan [facility] Health Center10-15-2024 History of Present illness Narrative* Liz Madsen APRN.CNP - 02/06/2024 9:00 AM EDT Images from the original note were not included. [facility] Department of Cardiovascular Medicine DEPARTMENT OF CARDIAC SURGERY OUTPATIENT VISIT DATE February 06, 2024 OUTPATIENT VISIT TYPE POSTOPERATIVE Tre Quiñones is a 68 year old male who [...] - Exam was compared with the prior CC echocardiographic exam performed on 01/24/2024. Interval improvement [...] and walking - follow up with local [facility]acer for further medical management CXR: 02/06/2024 RESULT: [...] cmp to monitor trends. Follow up with deputy editor in chief in 4-6 weeks with consideration of repeat [...] prophylaxis reviewed Discussed wound care Liz Madsen APRN.HAIRSPRING TRUER documented in this encounterSamaritan North Health Center10-15-2024 NoteProm[facility]10-15-2024 History of Present illness Narrative* Africa Galvin RT(R) - 02/06/2024 8:15 AM EDT Radiology Service Progress Note PATIENT NAME: Tre Quiñones DATE OF SERVICE: February 06, 2024 TIME: 8:14 AM PATIENT IDENTITY VERIFICATION COMPLETED USING TWO (2) IDENTIFIERS: Name and Date of confirmedby patient verbally. FALL SCREENING: Has the patient had 2 falls in the last year or 1 fall with injury or currently using an Ambulatory Assistive Device (Walker, Cane, Wheelchair, Crutches, etc.)? No PATIENT GENDER DATA: Male PATIENT RELEVANT IMPLANT DATA REVIEWED: Not Applicable PATIENT PRESENTS WITH AN IMPLANTABLE OR ATTACHED [employer] SPECIAL EDUCATION TEACHER: No RADIOLOGY DEPARTMENT: General X-ray: Exam(s) Completed: Chest X-Ray PERIPHERAL IV DATA: Not applicable SIGNED BY: RT George(R) February 06, 2024 8:14 AM documented in this encounterSamaritan North Health Center10-15-2024 NotePromedica Fost[facility]10-09-2024 Telephone encounter Note* Telephone Encounter - Brittany Valente RN - 01/31/2024 12:12 PM EDT 1. Have you noticed any increase in [...] Pt instructed to contact 24-hour nurse hotline [phone] for any questions or concerns. Pt verbalized understanding. PD nurse confirmed/verified patient's and full name. All clear, closing statement given. Brittany Valente RN [facility]10-09-2024 Miscellaneous Notes* Telephone Encounter - Brittany Valente RN - 01/31/2024 12:12 PM EDT 1. Have you noticed any increase in [...] Pt instructed to contact 24-hour nurse hotline [phone] for any questions or concerns. Pt verbalized understanding. PD nurse confirmed/verified patient's and full name. All clear, closing statement given. Brittany Valente RN documented in this encounterSamaritan North Health Center10-07-2024 NoteProm[facility]10-07-2024 NoteProm[facility]10-06-2024 NoteProm[facility]10-06-2024 NoteHNO ID: [id number] Author: MIN JIMENEZ MD Service: Cardiac Surgery Author Type: Resident Type: Procedures Filed: 01/28/2024 09:40 Note Text: Pacing wires pulled this morning. Bedrest 30 minutes. Q15min vitals for first hour. Min Jimenez [facility]10-06-2024 NoteProm[facility]10-05-2024 NoteProm[facility]10-04-2024 NoteProm[facility]10-03-2024 NoteProm[facility]10-03-2024 Note [facility]10-02-2024 NoteProm[facility]10-01-2024 NoteProm[facility]10-01-2024 NoteProm[facility] 01-23-2024 NoteProm[facility]10-01-2024 NoteProm[facility]10-01-2024 NoteProm[facility]10-01-2024 NoteProm[facility]10-01-2024 NoteProm[facility]09-30-2024 Note [facility]09-30-2024 History of Present illness Narrative* Phillip Diamond MD - 01/22/2024 11:04 AM EDT Images from the original note were not included. [facility] [place] DEPARTMENT OF CARDIAC SURGERY OUTPATIENT VISIT DATE January 22, 2024 OUTPATIENT VISIT SERVICE DATE: 01/22/2024 SERVICE TIME: 11:08 AM PCP: Omer Huff) [address] [place] [address] Referring Physician: Phillip Diamond [address] [place] [id number] Patient Type: New Visit to Determine Surgery: Yes HPI: Mr. Tre Quiñones is a 68 year old male seen regarding candidacy for cardiac surgery. He iscurrently symptomatic and complains of shortness of breath [...] minimal luminal caliber throughout = 12 mm Mechatronics Engineer: [facility] Transcribe Date/Time: Jan 19 2024 10:29A [...] and in the rare event of such aserious situation, that colleague might take over the operation. These findings will be communicated back to the requesting physician via electronic medical record Phillip Diamond MD documented in this encounterSamaritan North Health Center09-30-2024 NotePromedica Fost[facility]09-30-2024 History of Present illness Narrative* Gasper Alejandre RN - 01/22/2024 9:41 AM EDT AMBULATORY PATIENT EDUCATION READINESS TO LEARN Cognitive [...] check in for surgery documented in this encounterSamaritan North Health Center09-30-2024 History of Present illness Narrative* Jw Talley MD - 01/22/2024 9:20 AM EDT Cardiothoracic Anesthesiology Preoperative Assessment Service Date: 01/22/2024 [...] s/p typical atrial flutter[place] with red[place] in 2007, s/p CTI and atypical atrial flutter RFAin 2017 and atypical atrial flutter RFA in [...] age 82) Father other ( from [place] effects multiple cancers) Father Prostate Cancer Father [...] 01/19/24 8:50 AM Impression IMPRESSION: See Result. Mechatronics Engineer: [facility] Transcribe Date/Time: Jan 19 2024 11:03A [...] swab twice the day before surgery and oncethe morning of surgery. Dispense: 22 g Refill: [...] Anesthetic Plan: general Airway type: ETT Beta Damian Monitoring Plan Post Procedure Analgesic Plan Informed [...] Signature: Jw Talley MD Patient Name: Tre Quiñones Date: January 22, 2024 Time: 6:51 AM Pager/Contact #: documented in this encounterSamaritan North Health Center09-30-2024 NotePromed[facility]ost[facility]09-30-2024 NotePromed[facility]09-30-2024 History of Present illness Narrative* Gasper Alejandre RN - 01/22/2024 9:07 AM EDT CHART COPY-DO NOT DISCARD CARDIOVASCULAR SURGERY PRE-OPERATIVE ASSESSMENT NAME: Tre Quiñones Alert Notes: DATE: 01/22/2024 SEX: male : [...] age 84) Father other ( from [place] effects multiple cancers) Father Prostate Cancer Father [...] , Dental Clearance DERM: Denies Dermatological Complaints RN REHAB: dizziness frederick RESP: sob josé miguel CARD: [...] minimal luminal caliber throughout = 12 mm [facility]ronics [facility] Transcribe Date/Time: Jan 19 2024 10:29A Dictated by : LUKE JOHNSON MD This examination was interpreted and the report reviewed and electronically signed by: LUKE JOHNSON MD on Jan 19 2024 10:47AM EST MRI: CXR: XR CHEST 2V FRONTAL/LAT Result Date: 01/19/2024 IMPRESSION: See Result. Mechatronics Engineer: [employer] Transcribe Date/Time: Jan 19 2024 11:03A Dictated by: CONSTANTIN GREENE MD This examination was interpreted [...] and Physical dated 01/19/2024 documented in this encounterSamaritan [facility] Health Center09-27-2024 NoteHNO ID: [id number] Author: ZACK ABBASI RRT Service: ? Author Type: Registered Resp Therapist Type: Progress Notes Filed: 01/19/2024 15:00 Note Text: PULM FUNCTION: Provider: Phillip Diamond MD Spirometry: 1 DLCO[facility] History of Present illness Narrative * Zack Abbasi RRT - 01/19/2024 2:59 PM EDT PULM FUNCTION: Provider: Phillip Diamond MD Spirometry: 1 DLCO: 1 documented in this encounterSamaritan North Health Center09-27-2024 Instructions* Patient Instructions* Victor Hugo Christian DO - 01/19/2024 1:15 PM EDT Hold off Jardiance prior to surgery documented in this encounterSamaritan North Health Center09-27-2024 History of Present illness Narrative* Moiz Koenig MD - 01/19/2024 12:15 PM EDT Images from the original note were not included. [facility] [facility] Department of Cardiovascular Medicine SECTION OF CARDIOVASCULAR IMAGING OUTPATIENT VISIT DATE 01/19/2024 OUTPATIENT VISIT TYPE CONSULTATION REFERRING PHYSICIAN Phillip Diamond [address] [place] [address] CHIEF COMPLAINT: Pre-operative evaluation. HISTORY OF PRESENT ILLNESS: Cardiac consultation at the request of Dr. Phillip Diamond. A copy of this consultation note will be provided to the requesting physician by way of shared Medical record or letter to requesting physician via US mail. Mr. Quiñones is a 68 year old male who is seen today for pre-operative evaluation. The patient has a medical history that includes hypertension, morbid obesity, JOSÉ MIGUEL, asthma, SSS withPPM in place and atrial arrhythmia s/p typical atrial flutter[place] with redo [id number], s/p CTI and atypical atrial flutter RFA [...] age 82) Father other ( from [place] effects multiple cancers) Father Prostate Cancer Father [...] Negative for: Weakness, Paralysis, Numbness, Tingling, Tremor, Nervousness,Depressed mood, Memory loss SKIN: Negative for: Rashes, Itching HEMATOLOGICAL/LYMPHATIC: Negative for: Easy bruising , Easy bleeding ENDOCRINE: Negative for: Heat or cold intolerance, Excessive sweating, Frequent urination, Frequentthirst PHYSICAL EXAMINATION: BP 108/60 (BP Site: Right [...] minimal luminal caliber throughout = 12 mm Mechatronics Engineer: [facility] Transcribe Date/Time: Jan 19 2024 10:29A Dictated by : LUKE JOHNSON MD This examination was interpreted and the report reviewed and electronically signed by: LUKE JOHNSON MD on Jan 19 2024 10:47AM EST IMPRESSION: Mr. Quiñones is a 68 year old male who presents for cardiovascular evaluation. On my review of the OSH echocardiographic studies including ELEN, there is evidence of severe mitralregurgitation (see saved Image) which is posteriorly directed, related to prolapse and restricted posterior leaflet. I reviewed all of the imaging data in detail with Mr. Quiñones and his . Given severe mitral regurgitation, [...] ICD10: I34.1 Victor Hugo Christian DO Resident [facility] STAFF PHYSICIAN NOTE OF PERSONAL INVOLVEMENT IN CARE Mr. Quiñones has NYHA III symptoms of dyspnea and fatigue due to severe mitral regurgitation related to prolapse and restricted posterior leaflet. He has longstanding AF issues. He has a class I indication for proceeding to proposed mitral valve surgery with Dr. Diamond. If Mr. Quiñones chooses to [facility], I would be happy to see [...] PHYSICIAN: Moiz Koenig MD documented in this encounterSamaritan North Health Center09-27-2024 NotePromed[facility]09-27-2024 History of Present illness Narrative* Dejah Alberts RN - 01/19/2024 10:30 AM EDT Radiology Service Progress Note DATE OF SERVICE: [...] SIGNATURE: Dejah Alberts RN PATIENT NAME: Tre Quiñones DATE: January 19, 2024 TIME: 10:02 AM * Bharati Jefferson RT(R) - 01/19/2024 10:30 AM EDT Radiology Service Progress Note PATIENT NAME: Tre Quiñones DATE OF SERVICE: January 19, 2024 TIME: 10:20 AM PATIENT IDENTITY VERIFICATION COMPLETED USING TWO (2) IDENTIFIERS: Name and Date of confirmedby patient verbally. FALL SCREENING: Has the patient had 2 falls in the last year or 1 fall with injury or currently using an Ambulatory Assistive Device (Walker, Cane, Wheelchair, Crutches, etc.)? No PATIENT GENDER DATA: Male PATIENT RELEVANT IMPLANT DATA REVIEWED: Yes PATIENT PRESENTS WITH AN IMPLANTABLE OR ATTACHED [employer] SPECIAL EDUCATION TEACHER: No RADIOLOGY DEPARTMENT: CT; Exam(s) Completed: Cardiac PERIPHERAL IV DATA: Site assessment: Clean,Dry and Intact, Site disposition Discontinued SIGNED BY: RT Ilene(R) January 19, 2024 10:20 AM documented in this encounterSamaritan North Health Center09-27-2024 NotePromed[facility]09-27-2024 NoteProm[facility]09-27-2024 History of Present illness Narrative* Africa Galvin RT(R) - 01/19/2024 10:15 AM EDT Radiology Service Progress Note PATIENT NAME: Tre Quiñones DATE OF SERVICE: January 19, 2024 TIME: 8:50 AM PATIENT IDENTITY VERIFICATION COMPLETED USING TWO (2) IDENTIFIERS: Name and Date of confirmedby patient verbally. FALL SCREENING: Has the patient had 2 falls in the last year or 1 fall with injury or currently using an Ambulatory Assistive Device (Walker, Cane, Wheelchair, Crutches, etc.)? No PATIENT GENDER DATA: Male PATIENT RELEVANT IMPLANT DATA REVIEWED: Not Applicable PATIENT PRESENTS WITH AN IMPLANTABLE OR ATTACHED [employer] SPECIAL EDUCATION TEACHER: No RADIOLOGY DEPARTMENT: General X-ray: Exam(s) Completed: Chest X-Ray PERIPHERAL IV DATA: Not applicable SIGNED BY: RT George(R) January 19, 2024 8:50 AM documented in this encounterSamaritan [facility] Health Center09-27-2024 NotePromedica [facility]ost[facility]08-16-2024 Telephone encounter Note* Telephone Encounter - Africa Wang RN - 12/08/2023 12:05 PM EDT OPD ., Kiya held .30 @ 1200, OHS 10.1. Please send schedule + Dental Clearance Form- [employer]. MVr +/- MAZE ?Robot (2) Discussed with Mr. Quiñones the details regarding surgery scheduled with Dr. Diamond on 01.22. We reviewed the requirement for Dental Clearance Form and provided instructions for the last dose date of Xarelto, Jardiance, and any other anti-coagulants, vitamins, supplements, minerals, herbal products,or NSAID's should be on 01.16. Africa Wang RN December 08, 2023 12:10 PM Cardiac Surgery PreOp Checklist Patient Name: Tre Quiñones OR Surgery Date: 01.23.2024 TCI Appt. Date: [...] if outside cath not ordered- done outside: [facility]- Get Images 11.21.2023 Redo OHS/Robotic surgery/radiation to chest CT or CTA/if outside CT will need in-house CXR, CardiacMRI ordered Mechanical valve Admit for Heparin/Lovenox bridge n/a Female <50 y/o HCG n/a Heparin allergy hx of HIT Vascular Medicine consult n/a Nickel/Metal allergy Dermatology consult n/a Breast implants/Robotic candidates Plastic Surgery consult n/a Urinary strictures Urology consult/Urology consult to OR n/a All stimulators/spinal stimulator Type of stimulator n/a PPM/AICD Device check ordered Valve/TAVR/TEVAR/Myectomy/ascending aorta Dental clearance/Dental Consult at [facility] discussed [...] and general knowledge given to pt n/a [facility]08-16-[facility] Miscellaneous Notes* Telephone Encounter - Africa Wang RN - 12/08/2023 12:05 PM EDT OPD 9., Kiya held 9.30 @ 1200, OHS 10.. Please send schedule + Dental Clearance Form- [employer]. MVr +/- MAZE ?Robot (2) Discussed with Kameron the details regarding surgery scheduled with Dr. Diamond on 10.1. We reviewed the requirement for Dental Clearance Form and provided instructions for the last dose date of Xarelto, Jardiance, and any other anti-coagulants, vitamins, supplements, minerals, herbal products,or NSAID's should be on 01.16. Africa Wang RN December 08, 2023 12:10 PM Cardiac Surgery PreOp Checklist Patient Name: Tre Quiñones OR Surgery Date: 01.23.2024 [facility]CI Appt. Date: [...] if outside cath not ordered- done outside: [employer]- Get Images 11.21.2023 Redo OHS/Robotic surgery/radiation to chest CT or CTA/if outside CT will need in-house CXR, CardiacMRI ordered Mechanical valve Admit for Heparin/Lovenox bridge n/a Female <50 y/o HCG n/a Heparin allergy hx of HIT Vascular Medicine consult n/a Nickel/Metal allergy Dermatology consult n/a Breast implants/Robotic candidates Plastic Surgery consult n/a Urinary strictures Urology consult/Urology consult to OR n/a All stimulators/spinal stimulator Type of stimulator n/a PPM/AICD Device check ordered Valve/TAVR/TEVAR/Myectomy/ascending aorta Dental clearance/Dental Consult at [facility] discussed [...] and general knowledge given to pt n/a * Telephone Encounter - Africa Wang RN - 12/06/2023 4:19 PM EDT To AM for review: moderate-severe MR/mild posterior MAC, mild TR, A-Fib/Flutter (ablations 2005, 2017, 2018) * Telephone Encounter - Yvonne Silva - 12/06/2023 3:32 PM EDT Records in Epic, Images on Syngo. To NPM * Telephone Encounter - Yvonne Silva - 12/06/2023 3:32 PM EDT Patient was referred to Dr. Diamond by Dr. Wray for MVR. documented in this encounterSamaritan [facility] Center08-14-2024 Telephone encounter Note * Telephone Encounter - Africa Wang RN - 12/06/2023 4:19 PM EDT To AMG for review: moderate-severe MR/mild posterior MAC, mild TR, A-Fib/Flutter (ablations 2005, 2017, 2018) [facility]08-14-20[facility] Telephone encounter Note* Telephone Encounter - Yvonne Silva - 12/06/2023 3:32 PM EDT Records in Epic, Images on Syngo. To NPM [facility]08-14-2024 Telephone encounter Note* Telephone Encounter - Yvonne Silva - 12/06/2023 3:32 PM EDT Patient was referred to Dr. Diamond by Dr. Wray for MVR. [facility]12-11-2023 Discharge summary Author Jerardo Millan [facility] April 03, 2023 11:21am Note Date/Time April 03, 2023 11:18am [facility] Medical Records Department [address] [place] [address] Instructions for Home/Discharge Instructions 04/03/23 1115 MR#: [id number] Acct: [id number] Name: TRE QUIÑONES Rep #:[id number] : 1955 68 From: Jerardo Kitchen [place]: [facility] [facility] Instructions Diet Discharge Diet: No restrictions Activity Discharge Activity: May Not Drive (While taking narcotic pain medication) and May Shower May shower in (days): 2 Ice area for (Minutes): 20 Lifting Restrictions: No lifting greater than 10 pounds for the next 5 weeks Dressing / Incision Call your doctor if your incision/area has: Continuous Slow Oozing, Increased Pain/ Swelling, Increased Redness, Foul Smelling Discharge and Swelling at the incision site Call your doctor if you observe: Fever of 101 or Higher, Inability to urinate and Inability to have a bowel movement Remove Dressing in: 2 days Cleanse incision/area with: Soap & Water and Keep Dressing Clean & Dry Follow Up Care Please Follow Up With: Jerardo Millan MD When: 1 week postop Test Results: Test results from this visit will be discussed in further detail at your follow- up appointment, if applicable. Discharge Plan Admission Primary Reason for Your Visit: Umbilical hernia repair Attending Provider: Jerardo Millan Primary Care Provider: [facility] Consulting Providers: Sherif Kiser Instructions Additional Instructions / Restrictions: Resume Xarelto in 72 hours Discharge Orders/Prescriptions Prescriptions: New oxycodone 5 mg tablet 5 mg PO Q6H PRN (Reason: pain) 5 Days Qty: 14 0RF Continued lisinopril 20 mg tablet 20 mg PO DAILY budesonide-formoterol [Symbicort] 160-4.5 mcg/actuation HFA aerosol inhaler 2 puff INHALATION BID albuterol sulfate 1 INHALER inhaler 2 puff INHALATION Q6H PRN PRN (Reason: Wheezing/SOB) Patient Comments: Wheezing/SOB tadalafil 5 mg tablet 5 mg PO DAILY Patient Comments: Take 1 tablet by mouth every morning. rivaroxaban 20 mg tablet 20 mg PO QHS Rx Instructions: administer with evening meal amlodipine 5 mg tablet 5 mg PO DAILY Qty: 30 11RF furosemide 20 mg tablet 20 mg PO DAILY Qty: 90 3RF amiodarone 200 mg tablet 200 mg PO DAILY Qty: 90 3RF metoprolol succinate 50 mg tablet extended release 24 hr 50 mg PO BID Qty: 180 3RF Referrals / Follow Up: Jerardo Millan MD [Med Staff - Active Staff] - [facility] Doctor,Out of [Non-Staff] - Disposition Disposition (needs filled in before D/C Order can be placed): Home, Self Care 04/03/23 1121<Electronically signed by Jerardo Millan MD>Jerardo Millan MD CC: Dr. Sherif Kiser MD; [place] [facility] ~ Signed [facility] Work Phone: [phone]) 631-321412-11-2023 History and physical note Author Jerardo Millan [facility] April 03, 2023 7:27am Note Date/Time April 03, 2023 7:27am [facility] Medical Records Department [address] [place] [address] History & Physical Exam 04/03/2325 MR#: [id number] Acct: [id number] Name: TRE QUIÑONES Rep #:[id number] : 1955 68 From: Jerardo Kitchen PCP: [place] Status:[facility] Location: [place] [address] History and Physical Date of Admission: 04/03/23 Date of Service: 03/22/23 MR#: [id number] Acct: [id number] Name: TRE QUIÑONES Rep #: [id number] : 1955 Provider: Dr. Jerardo Millan MD Age/Sex: 68/M Location: [facility] Status: Signed Intake Vital Signs 12/20/2319:59 03/22/2308:22 Height 6 ft 6 ft Weight: 308 lb 4 oz BMI 41.8 BP 131/70 H Blood Pressure Location Rt brachial Position Sitting Respiration 18 Pulse 60 Pulse Source Monitor Temp 97.4 F L Temp Source Temporal Pulse Oximetry (%) 96 Oxygen Delivery Method room air Intake Visit Reasons: Update H/P Hernia Surgery Chief Complaint: update h/p hernia sx Accompanied by: Is patient in pain?: No Allergies Environmental Allergies: Uncoded [hay fever] Allergy (Verified 03/22/23 08:23) NEEDS FOLLOW-UP Medications albuterol sulfate 90 mcg/actuation aerosol inhaler 2 puff inhalation Q6H PRN PRNWheezing/SOB 07/21/17 [History Confirmed 03/22/23] lisinopril 20 mg tablet 20 mg PO DAILY 05/23/18 [History Confirmed 03/22/23] budesonide-formoterol HFA 160 mcg-4.5 mcg/actuation aerosol inhaler (Symbicort) 2 puff inhalation BID 09/19/19 [History Confirmed 03/22/23] amlodipine 5 mg tablet 5 mg PO DAILY #30 tabs 05/06/21 [Rx Confirmed 03/22/23] furosemide 20 mg tablet 20 mg PO DAILY #90 tabs 05/06/21 [Rx Confirmed 03/22/23] amiodarone 200 mg tablet 200 mg PO DAILY #90 tabs 05/24/21 [Rx Confirmed 03/22/23] metoprolol succinate 50 mg tablet,extended release 24 hr 50 mg PO BID #180 tabs 06/14/21 [Rx Confirmed 03/22/23] tadalafil 5 mg tablet 5 mg PO DAILY 12/19/22 [History Confirmed 03/22/23] rivaroxaban 20 mg tablet 20 mg PO QHS 03/20/23 [History Confirmed 03/22/23] [facility] Medical History Acute posterior anal fissure Anxiety Arthritis Asthma Atypical atrial flutter Bradycardia Cardiology follow-up encounter Chronic diastolic (congestive) heart failure CPAP (continuous positive airway pressure) dependence Essential (primary) hypertension Former smoker Hemorrhoids, internal, with bleeding History of atrial fibrillation History of echocardiogram History of pacemaker History of pain when walking History of stress test Hypertension Morbid obesity with BMI of 40.0-44.9, adult Paroxysmal atrial fibrillation PTSD (post-traumatic stress disorder) Secondary pulmonary arterial hypertension Sick sinus syndrome Vertigo Wears glasses Wears hearing aid Surgical History History of cardiac radiofrequency ablation (08/24/18) History of cardioversion (06/11/18) History of colonoscopy (11/25/19) History of hemorrhoidectomy History of left heart catheterization (07/21/17) Hx of laparoscopy Presence of permanent cardiac pacemaker (12/01/17) Status post bilateral hernia repair Family History Mother Diabetes HypertensionFather Cancer prostateOther CVA (cerebral vascular accident) Social History household members: spouse Smoking Status: Former smoker substance use type: does not use HPI HPI HPI: Patient presents for update H&P following emergent primary repair of umbilical hernia on 12/19/2022. He again presents today with his . His last visit was01/03/2023. Today he shares that he is overall stable and has been trying to take it easy. However, he states that he starting to see a bulge again. He shares that this is likely happened in the last 1 week. He is uncertain how thehernia recurred, but is suspicious about possible turning motion as he is getting in and out of hunting blinds for hunting season. He denies any changes to his bowels. When asked about his cardio activity, unfortunately he states that this remains limited due to his extreme knee pain. Below is recapitulated from patient's prior visit for ease of review: Mr. Quiñones presents with his for second postoperative visit. His last visit 01/03/2023. He reports that overall he remains active and his current weight is about 305 pounds. He states he forgets what his goal weight is. He denies any pain or bulging at his hernia site, however, he does report that he had a close [place] he was pinned up against the pen and partially gored with the horn of the steer just above the bellybutton. He states he was initially quite concerned and almost sought evaluation, but the pain dissipated and he is now doing well. Patient presents following diagnostic laparoscopy with primary repair of umbilical hernia on 12/19/2022. Since hospital discharge they have been doing well. They report no postoperative pain. They report tolerance of a diet and that their bowel movements have been regular. They have no wound concerns. confesses that he is been doing some activity that may exceed his 10 pound recommendation and his adds that he was doing some riding lawn moThin Film Electronics ASAhe day after his hospital discharge. He states that overall if he feels any point he backs off of that activity. He reports some feelings of discouragementwith his weight loss as he is not able to walk much given his arthritis in his knee. He does state that cycling is better for him from that respect. Exam Const General: cooperative, comfortable and anxious Orientation: alert, awake and oriented x3 Resp Effort & Inspection: normal respiratory effort GI Other: Obese, well-healed incisions directly over patient's umbilicus and along right abdominal wall. There is a palpable bulge along the right side of patient's umbilical incision and there is some soft tissue that appears to have herniated over the fascial edges. The fascial defect seems to be approximately 2 cm in diameter, however, the exam is somewhat limited by patient's habitus and the persistently herniated contents above the fascia. Assessment and Plan Assessment and Plan (1) Status post umbilical hernia repair, follow-up exam: Status: Acute Comment: Patient is a 68-year-old male who presents for update H&P visit following emergent diagnostic laparoscopy with primary umbilical hernia repair after he presented with an incarcerated and strangulated umbilical hernia 12/19/2022. Unfortunately, he has experienced recurrence of his hernia. This largely feels to be about the same size as when he initially presented, yet I am unable to saydefinitively since there certain limitations of the exam. Given this limitationI would like to proceed with repeat CT imaging for preoperative planning purposes. Also unfortunately Mr. Quiñones has had little success with the requested weight loss and is limited in his activity by severe arthritis in his knee joints. Given his prior emergency room visit due to incarceration, I believe it is best to proceed with repair of his hernia and doing so during a planned hold of his Xarelto therapy. Still, I have asked him to strongly consider a proactive approach to his activity that would hopefully allow this ammy his highest weight and thereafter achieve a lower body mass index. I have readdressed with him that this does put him at an increased risk for recurrence,but unfortunately I do not see waiting any longer as being beneficial and conversely putting him at some risk for a recurrent emergency situation. The details of the procedure were reviewed?including post procedure activity restrictions. Mr. Quiñones expresses an understanding and willingness to comply as directed. Procedure presently set for April 03, 2023 Plan: ? Obtain CT imaging of the abdomen pelvis for preoperative planning ? Continue to plan for robot-assisted umbilical hernia repair with mesh placement (patient will require hold of his Xarelto 48 hours pre and post procedure) I have examined the patient the following changes are noted:Date of Service: 03/22/23 MR#: [id number] Acct: [id number] Name: TRE QUIÑONES Rep #: [id number] : 1955 Provider: Dr. Jerardo Millan MD Age/Sex: 68/M Location: [facility] Status: Signed Intake Vital Signs 12/20/2319:59 03/22/2308:22 Height 6 ft 6 ft Weight: 308 lb 4 oz BMI 41.8 BP 131/70 H Blood Pressure Location Rt brachial Position Sitting Respiration 18 Pulse 60 Pulse Source Monitor Temp 97.4 F L Temp Source Temporal Pulse Oximetry (%) 96 Oxygen Delivery Method room air Intake Visit Reasons: Update H/P Hernia Surgery Chief Complaint: update h/p hernia sx Accompanied by: Is patient in pain?: No Allergies Environmental Allergies: Uncoded [hay fever] Allergy (Verified 03/22/23 08:23) NEEDS FOLLOW-UP Medications albuterol sulfate 90 mcg/actuation aerosol inhaler 2 puff inhalation Q6H PRN PRNWheezing/SOB 07/21/17 [History Confirmed 03/22/23] lisinopril 20 mg tablet 20 mg PO DAILY 05/23/18 [History Confirmed 03/22/23] budesonide-formoterol HFA 160 mcg-4.5 mcg/actuation aerosol inhaler (Symbicort) 2 puff inhalation BID 09/19/19 [History Confirmed 03/22/23] amlodipine 5 mg tablet 5 mg PO DAILY #30 tabs 05/06/21 [Rx Confirmed 03/22/23] furosemide 20 mg tablet 20 mg PO DAILY #90 tabs 05/06/21 [Rx Confirmed 03/22/23] amiodarone 200 mg tablet 200 mg PO DAILY #90 tabs 05/24/21 [Rx Confirmed 03/22/23] metoprolol succinate 50 mg tablet,extended release 24 hr 50 mg PO BID #180 tabs 06/14/21 [Rx Confirmed 03/22/23] tadalafil 5 mg tablet 5 mg PO DAILY 12/19/22 [History Confirmed 03/22/23] rivaroxaban 20 mg tablet 20 mg PO QHS 03/20/23 [History Confirmed 03/22/23] PFS Medical History Acute posterior anal fissure Anxiety Arthritis Asthma Atypical atrial flutter Bradycardia Cardiology follow-up encounter Chronic diastolic (congestive) heart failure CPAP (continuous positive airway pressure) dependence Essential (primary) hypertension Former smoker Hemorrhoids, internal, with bleeding History of atrial fibrillation History of echocardiogram History of pacemaker History of pain when walking History of stress test Hypertension Morbid obesity with BMI of 40.0-44.9, adult Paroxysmal atrial fibrillation PTSD (post-traumatic stress disorder) Secondary pulmonary arterial hypertension Sick sinus syndrome Vertigo Wears glasses Wears hearing aid Surgical History History of cardiac radiofrequency ablation (08/24/18) History of cardioversion (06/11/18) History of colonoscopy (11/25/19) History of hemorrhoidectomy History of left heart catheterization (07/21/17) Hx of laparoscopy Presence of permanent cardiac pacemaker (12/01/17) Status post bilateral hernia repair Family History Mother Diabetes HypertensionFather Cancer prostateOther CVA (cerebral vascular accident) Social History household members: spouse Smoking Status: Former smoker substance use type: does not use HPI HPI HPI: Patient presents for update H&P following emergent primary repair of umbilical hernia on 12/19/2022. He again presents today with his . His last visit was01/03/2023. Today he shares that he is overall stable and has been trying to take it easy. However, he states that he starting to see a bulge again. He shares that this is likely happened in the last 1 week. He is uncertain how thehernia recurred, but is suspicious about possible turning motion as he is getting in and out of hunting blinds for hunting season. He denies any changes to his bowels. When asked about his cardio activity, unfortunately he states that this remains limited due to his extreme knee pain. Below is recapitulated from patient's prior visit for ease of review: Mr. Quiñones presents with his for second postoperative visit. His last visit 01/03/2023. He reports that overall he remains active and his current weight is about 305 pounds. He states he forgets what his goal weight is. He denies any pain or bulging at his hernia site, however, he does report that he had a close cough with one of [place] ste[place] where he was pinned up against the pen and partially gored with the horn of the steer just above the bellybutton. He states he was initially quite concerned and almost sought evaluation, but the pain dissipated and he is now doing well. Patient presents following diagnostic laparoscopy with primary repair of umbilical hernia on 12/19/2022. Since hospital discharge they have been doing well. They report no postoperative pain. They report tolerance of a diet and that their bowel movements have been regular. They have no wound concerns. confesses that he is been doing some activity that may exceed his 10 pound recommendation and his adds that he was doing some riding lawn mowingthe day after his hospital discharge. He states that overall if he feels any point he backs off of that activity. He reports some feelings of discouragementwith his weight loss as he is not able to walk much given his arthritis in his knee. He does state that cycling is better for him from that respect. Exam Const General: cooperative, comfortable and anxious Orientation: alert, awake and oriented x3 Resp Effort & Inspection: normal respiratory effort GI Other: Obese, well-healed incisions directly over patient's umbilicus and along right abdominal wall. There is a palpable bulge along the right side of patient's umbilical incision and there is some soft tissue that appears to have herniated over the fascial edges. The fascial defect seems to be approximately 2 cm in diameter, however, the exam is somewhat limited by patient's habitus and the persistently herniated contents above the fascia. Assessment and Plan Assessment and Plan (1) Status post umbilical hernia repair, follow-up exam: Status: Acute Comment: Patient is a 68-year-old male who presents for update H&P visit following emergent diagnostic laparoscopy with primary umbilical hernia repair after he presented with an incarcerated and strangulated umbilical hernia 12/19/2022. Unfortunately, he has experienced recurrence of his hernia. This largely feels to be about the same size as when he initially presented, yet I am unable to saydefinitively since there certain limitations of the exam. Given this limitationI would like to proceed with repeat CT imaging for preoperative planning purposes. Also unfortunately Mr. Quiñones has had little success with the requested weight loss and is limited in his activity by severe arthritis in his knee joints. Given his prior emergency room visit due to incarceration, I believe it is best to proceed with repair of his hernia and doing so during a planned hold of his Xarelto therapy. Still, I have asked him to strongly consider a proactive approach to his activity that would hopefully allow this ammy his highest weight and thereafter achieve a lower body mass index. I have readdressed with him that this does put him at an increased risk for recurrence,but unfortunately I do not see waiting any longer as being beneficial and conversely putting him at some risk for a recurrent emergency situation. The details of the procedure were reviewed?including post procedure activity restrictions. Mr. Quiñones expresses an understanding and willingness to comply as directed. Procedure presently set for April 03, 2023 Plan: ? Obtain CT imaging of the abdomen pelvis for preoperative planning ? Continue to plan for robot-assisted umbilical hernia repair with mesh placement (patient will require hold of his Xarelto 48 hours pre and post procedure) I have examined the patient and the H&P has been reviewed. There are no clinicalchanges since date of exam. He confirms that he has held Xarelto for the last 2days. CT imaging of the abdomen pelvis showed a 3 x 4 cm hernia defect containing fat. Patient's spouse shares that her has complained of someincreased pain of late but he continues to have normal bowel function and on exam his hernia contents remain soft. Procedure and post procedure expectations(particularly his lifting restrictions) were reviewed. Proceed to the operatingroom for umbilical hernia repair as discussed above 04/03/23 0727 <Electronically signed by Jerardo Millan MD> Cosigner Signature (if applicable): CC: Dr. Jerardo Millan MD; [facility]~ Signed [facility] Work Phone: 1(412) 873-399608-29-2023 Consult note Author [facility]zie [facility] December 20, 2022 3:11pm Note Date/Time December 20, 2022 3: 11pm [facility] Medical Records Department [address] [place] [address] Counseling Note - Pharmacy 12/20/22 1510 MR#: [id number] Acct: [id number] Name: TRE QUIÑONES Imtiaz Rep #:[id number] : 1955 67 From: Kenzie Hilliard PCP: [place] [place] Status:ADM NYDIA Y Location: [place] [address] Pharmacy [facility] Service has performed discharge medication reconciliation and counseling for this patient. The patient was counseled on the following discharge medications and changes in medications for homegoing were reviewed. 1. OXYCODONE The Reason for Use, instructions for use, and potential side effects were reviewed for all new medications. The patient's questions regarding all of their medications were answered. The patient was able to verbally demonstrate an understanding of their dischargemedications. The patient's discharge medication list was reviewed for discrepancies and discrepancies were resolved. Patient was counselled by Leigh Ann Russell, David Candidate Medications at Discharge Home Medications albuterol sulfate 90 mcg/actuation aerosol inhaler 2 puff inhalation Q6H PRN PRNWheezing/SOB 07/21/17 lisinopril 20 mg tablet 20 mg PO DAILY 05/23/18 budesonide-formoterol HFA 160 mcg-4.5 mcg/actuation aerosol inhaler (Symbicort) 2 puff inhalation BID 09/19/19 rivaroxaban 20 mg tablet 20 mg PO DAILY #30 tabs 08/17/20 amlodipine 5 mg tablet 5 mg PO DAILY #30 tabs 05/06/21 furosemide 20 mg tablet 20 mg PO DAILY #90 tabs 05/06/21 amiodarone 200 mg tablet 200 mg PO DAILY #90 tabs 05/24/21 metoprolol succinate 50 mg tablet,extended release 24 hr 50 mg PO BID #180 tabs 06/14/21 tadalafil 5 mg tablet 5 mg PO DAILY 12/19/22 oxycodone 5 mg tablet 5 mg PO Q6H PRN PRN Pain Score 6-10 2 days #6 tabs 12/20/22 12/20/22 1511 <Electronically signed by Kenzie Hilliard > Date _ Kenzie Hilliard Cosigner Signature (if applicable): Date CC: ~ Signed [facility] Work Phone: 1(969) 367-699808-29-2023 Discharge summary Author Becky Jaimes [facility] December 20, 2022 2:49pm Note Date/Time December 20, 2022 9: 48am [facility] Medical Records Department [address] [place] [id number] Instructions for Home/Discharge Instructions 12/20/22 0905 MR#: [id number] Acct: [id number] Name: QUIÑONESTRE COYLE Imtiaz Rep #:[id number] : 1955 67 From: Becky MENSAH PA-C [place] [facility] Status:ADM NYDIA Discharge Instructions Diet Discharge Diet: Light diet - advance as tolerated Activity Discharge Activity: May Not Drive (3-5 days or while taking narcotic pain medications) Lifting Restrictions: 10 pounds Dressing / Incision Call your doctor if your incision/area has: Continuous Slow Oozing, Sudden Increased Bleeding, Increased Pain/ Swelling, Increased Redness, Foul Smelling Discharge and Swelling at the incision site Call your doctor if you observe: Fever of 101 or Higher Suture Line Care: Avoid Pulling/Pushing and Avoid Pinching/Bending Remove Dressing in: 2 days Cleanse incision/area with: Soap & Water Follow Up Care Please Follow Up With: Jerardo Millan MD When: Follow-up with Dr. Millan in 2 weeks following your surgery date. Please call [phone] for an appointment. Test Results: Test results from this visit will be discussed in further detail at your follow- up appointment, if applicable. Discharge Plan Admission Admit Date/Time: 12/19/22 18:26 Primary Reason for Your Visit: Incarcerated umbilical hernia Attending Provider: Jerardo Millan Primary Care Provider: [facility] Consulting Providers: Juana Rodriguez Instructions Additional Instructions / Restrictions: Recommend no lifting greater than 10 pounds for 2 weeks You may remove the op-site dressings in 2 days You may shower starting tomorrow over top of the plastic dressings which are waterproof You will need to follow-up in [address] Millan You will discuss at that time scheduling your next surgical procedure to place mesh Please call our office to schedule an appointment at [phone] or if any questions or concerns Discharge Orders/Prescriptions Prescriptions: New oxycodone 5 mg Tablet 5 mg PO Q6H PRN PRN (Reason: Pain Score 6-10) 2 Days Qty: 6 0RF Continued lisinopril 20 mg tablet 20 mg PO DAILY budesonide-formoterol [Symbicort] 160-4.5 mcg/actuation HFA aerosol inhaler 2 puff INHALATION BID albuterol sulfate 1 INHALER inhaler 2 puff INHALATION Q6H PRN PRN (Reason: Wheezing/SOB) Patient Comments: Wheezing/SOB tadalafil 5 mg tablet 5 mg PO DAILY Patient Comments: Take 1 tablet by mouth every morning. rivaroxaban 20 mg tablet 20 mg PO DAILY Qty: 30 11RF Rx Instructions: administer with evening meal amlodipine 5 mg tablet 5 mg PO DAILY Qty: 30 11RF furosemide 20 mg tablet 20 mg PO DAILY Qty: 90 3RF amiodarone 200 mg tablet 200 mg PO DAILY Qty: 90 3RF metoprolol succinate 50 mg tablet extended release 24 hr 50 mg PO BID Qty: 180 3RF Referrals / Follow Up: Jerardo Millan MD [Med Staff - Active Staff] - (Please call the office for a 2 week follow-up with Dr. Millan) [place] [place] [Primary Care Provider] - Disposition Disposition (needs filled in before D/C Order can be placed): Home, Self Care 12/20/22 3679<Electronically signed by Becky MENSAH PA-C>Becky MENSAH PA-C CC: Dr. Juana Rodriguez MD; [facility] ~ Signed [facility] Work Phone: 1(393) 870-321108-29-2023 Progress note Author Skyler Howard [facility] December 20, 2022 1:43pm Note Date/Time December 19, 2022 5: 55pm [facility] Medical Records Department [address] [place] [address] Progress Note - Hospitalist 12/19/22 1750 MR#: [id number] Acct: [id number] Name: TRE QUIÑONES Rep #:[id number] : 1955 67 From: Skyler douglas MD PCP: [place] [place] Status:ADM NYDIA Location: [place] [address] Subjective Subjective 7-year-old male presents to the hospital with abdominal pain and nausea that started this morning, and was found to be early strangulated umbilical hernia. Medicine was consulted given history of paroxysmal A-fib and flutter. He did have a pacemaker and I believe an ablation in however he is still on Xarelto which will need held. He states that his medical history is stable. In anticipation of surgery an EKG and a chest x-ray were ordered by the emergency room physician, and both are unremarkable. Objective Data Objective Data Vital Signs: Vital Signs Temp Pulse Resp BP Pulse Ox O2 Del Method 97.9 F 59 L 18 134/82 H 95 Room Air 12/19/22 16:56 12/19/22 16:56 12/19/22 16:56 12/19/22 16:56 12/19/22 16:56 12/19/22 13:47 Oxygen Delivery Method Room Air Weight: 309 lb Body Mass Index (BMI) 41.9 Lab / Micro Data 12/20/22 05:57 12/20/22 05:57 Labs: Laboratory Results - last 24 hr 12/19/22 14:16: WBC 8.2, RBC 4.73, Hgb 13.8, Hct 42.6, MCV 90.1, MCH 29.2, MCHC 32.4, RDW Std Deviation 43.6, RDW Coeff of Mar 13.1, Plt Count 209, MPV 10.8, Immature Gran % (Auto) 0.400, Neut % (Auto) 69.7, Lymph % (Auto) 21.0, [place] % (Auto) 6.9, Eos % (Auto) 1.0, Baso % (Auto) 1.0, Absolute Neuts (auto) 5.8, Absolute Lymphs (auto) 1.73, Nucleated RBC % 0, Sodium 142, Potassium 4.0, Chloride 111 H, Carbon Dioxide 27.0, Anion Gap 4 L, BUN 26 H, Creatinine 1.11, Est GFR (MDRD) Af Amer 85, Est GFR (MDRD) Non-Af 71, BUN/Creatinine Ratio 23.4 H, Glucose 112 H, Calcium 9.3, Total Bilirubin 0.60, AST 14 L, ALT 31, Alkaline Phosphatase 53, Total Protein 7.3, Albumin 4.2, Globulin 3.1, Albumin/Globulin Ratio 1.4 Radiography Diagnostic Testing: Radiology Impression Abdomen/Pelvis CT 12/19/22 14:50 IMPRESSION: Small right paraumbilical hernia containing fluid distended small bowel, mild mesenteric edema, and mild free fluid with mild fluid dilatation of small bowel proximal to the hernia sac, suspicious for strangulated hernia with early small bowel obstruction. Colonic diverticulosis without acute diverticulitis. Electronically Signed: Margaret Morse MD at 15:29 EDT , Chest X-Ray 12/19/22 17:10 IMPRESSION: No acute findings in the chest. Electronically Signed: Harris Lind MD at 17:37 EDT , Physical Exam Narrative General: Alert, Oriented x3, Cooperative, No apparent distress HEENT: Atraumatic, PERRLA, EOMI, Normocephalic Oral: Moist Mucosa Neck: Supple, No JVD Lungs: Diminished, Normal air movement, No rhonchi, No wheeze, No rales Cardiovascular: Regular rate, Regular Rhythm, Normal S1, Normal S2, No murmurs Abdomen: Soft, mild tender, Non-Distended, No Hepato-splenomegaly, umbilical hernia Extremities: No edema, Capillary Refill Less than 3 Seconds Skin: No rashes, No breakdown Musculoskeletal: No Tenderness to Palpation of Joints or Extremities Neurological: Cranial nerves II-XII grossly intact, Motor Exam 5/5 strength throughout, Sensory exam intact to light touch and pain Psych/Mental Status: Normal Affect, Appropriate Assessment & Plan Assessment/Plan (1) Incarcerated umbilical hernia: PLAN: Plan 1. Strangulated umbilical hernia ? Pain management per primary ? Diet per primary ? We will hold Xarelto in preparation of surgery can place him on SCDs if necessary 2. HTN/HLD/paroxysmal A-fib status post ablation/sick sinus syndrome with pacemaker ? Can resume his home amiodarone as well as Norvasc and metoprolol ?We will hold lisinopril and Lasix pending BMP in the morning ? Can resume Xarelto when okay with surgery Charges/Coding Visit Charges Office Visits / Consults: 28326 OV L3 New 12/20/22 1343 <Electronically signed by Skyler Howard MD> Cosigner Signature (if applicable): CC: ~ Signed [facility] Work Phone: 1(777) 366-145008-29-2023 Progress note Author Juana Rodriguez [facility] December 20, 2022 9:53am Note Date/Time December 20, 2022 8: 56am [facility] Medical Records Department [address] [place] [address] Progress Note - Hospitalist 12/20/22 0856 MR#: [id number] Acct: [id number] Name: TRE QUIÑONES Rep #:[id number] : 1955 67 From: Juana Rodriguez MD [facility] Status:ADM NYDIA Location: [place] [address] Reason for Visit Reason for Visit: Diagnoses Umbilical hernia with obstruction, without gangrene (12/19/22) Subjective Subjective Patient feeling somewhat sore but better than yesterday, he is hungry and ready to eat, passing gas, no nausea, no chest pain or shortness of breath Objective Data Objective Data Vital Signs: Vital Signs Temp Pulse Resp BP Pulse Ox O2 Del Method O2 Flow Rate 97.7 F L 64 16 119/71 95 Nasal Cannula 2 12/20/22 04:37 12/20/22 04:37 12/20/22 04:37 12/20/22 04:37 12/20/22 04:37 12/20/22 04:37 12/20/22 04:37 Oxygen Flow Rate (L/min) 2 Oxygen Delivery Method Nasal Cannula Weight: 140.16 kg Body Mass Index (BMI) 41.9 Intake & Output: Intake and Output for Last 24 Hours 12/18/22 12/19/22 12/20/22 23:59 23:59 23:59 Intake Total 1115 / 1115 Balance 1115 / 1115 Lab / Micro Data 12/20/22 05:57 12/20/22 05:57 Labs: Laboratory Results - last 24 hr 12/19/22 14:16: WBC 8.2, RBC 4.73, Hgb 13.8, Hct 42.6, MCV 90.1, MCH 29.2, MCHC 32.4, RDW Std Deviation 43.6, RDW Coeff of Mar 13.1, Plt Count 209, MPV 10.8, Immature Gran % (Auto) 0.400, Neut % (Auto) 69.7, Lymph % (Auto) 21.0, [place] % (Auto) 6.9, Eos % (Auto) 1.0, Baso % (Auto) 1.0, Absolute Neuts (auto) 5.8, Absolute Lymphs (auto) 1.73, Nucleated RBC % 0, Sodium 142, Potassium 4.0, Chloride 111 H, Carbon Dioxide 27.0, Anion Gap 4 L, BUN 26 H, Creatinine 1.11, Est GFR (MDRD) Af Amer 85, Est GFR (MDRD) Non-Af 71, BUN/Creatinine Ratio 23.4 H, Glucose 112 H, Calcium 9.3, Total Bilirubin 0.60, AST 14 L, ALT 31, Alkaline Phosphatase 53, Total Protein 7.3, Albumin 4.2, Globulin 3.1, Albumin/Globulin Ratio 1.4 12/20/22 05:57: WBC 8.5, RBC 4.27 L, Hgb 12.9 L, Hct 39.1 L, MCV 91.6, MCH 30.2,MCHC 33.0, RDW Std Deviation 46.1 H, RDW Coeff of Mar 13.6, Plt Count 194, MPV 11.5, Immature Gran % (Auto) 0.200, Neut % (Auto) 68.6, Lymph % (Auto) 20.1, [place] % (Auto) 9.5, Eos % (Auto) 0.8, Baso % (Auto) 0.8, Absolute Neuts (auto) 5.8, Absolute Lymphs (auto) 1.71, Nucleated RBC % 0 Radiography Diagnostic Testing: Radiology Impression Abdomen/Pelvis CT 12/19/22 14:50 IMPRESSION: Small right paraumbilical hernia containing fluid distended small bowel, mild mesenteric edema, and mild free fluid with mild fluid dilatation of small bowel proximal to the hernia sac, suspicious for strangulated hernia with early small bowel obstruction. Colonic diverticulosis without acute diverticulitis. Electronically Signed: Margaret Morse MD at 15:29 EDT , Chest X-Ray 12/19/22 17:10 IMPRESSION: No acute findings in the chest. Electronically Signed: Harris Lind MD at 17:37 EDT , Physical Exam Narrative General: Alert, oriented, no apparent distress HEENT: Atraumatic, normocephalic Eyes: Anicteric, normal conjunctiva, extraocular movements grossly intact Neck: Supple Respiratory: Clear to auscultation bilaterally, normal respiratory effort Cardiovascular: Regular rate GI: Not tense, slightly tender without rebound, guarding, rigidity Extremities: No edema Musculoskeletal: Moving all extremities Neuro: No overt focal neurological deficits Skin: No rashes appreciated Psych: Cooperative Assessment & Plan Assessment/Plan (1) Incarcerated umbilical hernia: PLAN: Plan 1. Strangulated umbilical hernia ? Pain management per primary ? Diet per primary ? We will hold Xarelto in preparation of surgery can place him on SCDs if necessary -12/20: Okay to hold Xarelto at this time, patient being advanced to full liquidsper surgery 2. HTN/HLD/paroxysmal A-fib status post ablation/sick sinus syndrome with pacemaker ? Can resume his home amiodarone as well as Norvasc and metoprolol ?We will hold lisinopril and Lasix pending BMP in the morning ? Can resume Xarelto when okay with surgery -12/20: Okay to hold Xarelto until cleared to resume by surgery BMP overall unchanged so we will resume metoprolol, tadalafil for his pulmonary hypertensionand amiodarone, if patient is discharged today he can resume his other home medications starting tomorrow Charges/Coding Visit Charges Inpatient E&M: 79921 [facility] Hosp L1 12/20/22 0953 <Electronically signed by Juana Rodriguez MD> Martinezigner Signature (if applicable): CC: ~ Signed [facility] Work Phone: 1(159) 780-913108-29-2023 Procedure [facility] 12-20-2022 Progress note Author Becky Jaimes [facility] December 20, 2022 9:04am Note Date/Time December 20, 2022 8: 55am [facility] Medical Records Department [address] [place] [id number] Progress Note - Surgery 12/20/22 0853 MR#: [id number] Acct: [id number] Name: TRE QUIÑONES Rep #:[id number] : 1955 67 From: Becky MENSAH PA-C PCP: [facility],[place] Status:ADM NYDIA Location: [place] [address] Subjective Subjective Patient is a 67 y/o M I am following s/p diagnostic laparoscopy with primary repair of umbilical hernia. Patient notes minimal amount of discomfort at the umbilical incision site. He is otherwise recovering well. He denies any nausea, vomiting, fever. He feels hungry this morning. Objective Data Objective Data Vital Signs: Vital Signs Temp Pulse Resp BP Pulse Ox O2 Del Method O2 Flow Rate 97.7 F L 64 16 119/71 95 Nasal Cannula 2 12/20/22 04:37 12/20/22 04:37 12/20/22 04:37 12/20/22 04:37 12/20/22 04:37 12/20/22 04:37 12/20/22 04:37 Oxygen Flow Rate (L/min) 2 Oxygen Delivery Method Nasal Cannula Weight: 309 lb Body Mass Index (BMI) 41.9 Intake & Output: Intake and Output for Last 24 Hours 12/18/22 12/19/22 12/20/22 23:59 23:59 23:59 Intake Total 1115 / 1115 Balance 1115 / 1115 Lab / Micro Data 12/20/22 05:57 12/19/22 14:16 Labs: Laboratory Results - last 24 hr 12/19/22 14:16: WBC 8.2, RBC 4.73, Hgb 13.8, Hct 42.6, MCV 90.1, MCH 29.2, MCHC 32.4, RDW Std Deviation 43.6, RDW Coeff of Mar 13.1, Plt Count 209, MPV 10.8, Immature Gran % (Auto) 0.400, Neut % (Auto) 69.7, Lymph % (Auto) 21.0, [place] % (Auto) 6.9, Eos % (Auto) 1.0, Baso % (Auto) 1.0, Absolute Neuts (auto) 5.8, Absolute Lymphs (auto) 1.73, Nucleated RBC % 0, Sodium 142, Potassium 4.0, Chloride 111 H, Carbon Dioxide 27.0, Anion Gap 4 L, BUN 26 H, Creatinine 1.11, Est GFR (MDRD) Af Amer 85, Est GFR (MDRD) Non-Af 71, BUN/Creatinine Ratio 23.4 H, Glucose 112 H, Calcium 9.3, Total Bilirubin 0.60, AST 14 L, ALT 31, Alkaline Phosphatase 53, Total Protein 7.3, Albumin 4.2, Globulin 3.1, Albumin/Globulin Ratio 1.4 12/20/22 05:57: WBC 8.5, RBC 4.27 L, Hgb 12.9 L, Hct 39.1 L, MCV 91.6, MCH 30.2,MCHC 33.0, RDW Std Deviation 46.1 H, RDW Coeff of Mar 13.6, Plt Count 194, MPV 11.5, Immature Gran % (Auto) 0.200, Neut % (Auto) 68.6, Lymph % (Auto) 20.1, [place] % (Auto) 9.5, Eos % (Auto) 0.8, Baso % (Auto) 0.8, Absolute Neuts (auto) 5.8, Absolute Lymphs (auto) 1.71, Nucleated RBC % 0 Radiography Diagnostic Testing: Radiology Impression Abdomen/Pelvis CT 12/19/22 14:50 IMPRESSION: Small right paraumbilical hernia containing fluid distended small bowel, mild mesenteric edema, and mild free fluid with mild fluid dilatation of small bowel proximal to the hernia sac, suspicious for strangulated hernia with early small bowel obstruction. Colonic diverticulosis without acute diverticulitis. Electronically Signed: Margaret Morse MD at 15:29 EDT , Chest X-Ray 12/19/22 17:10 IMPRESSION: No acute findings in the chest. Electronically Signed: Harris Lind MD at 17:37 EDT , Physical Exam GI GI Narrative: Abdomen- obese, soft, nontender to palpation. Incisions c/d/i. Assessment & Plan Assessment/Plan (1) Incarcerated umbilical hernia: PLAN: Patient recovering very well from surgery Will increase diet to full liquids this morning Await bowel function If tolerate diet and passes flatus, patient may be discharged later today We will continue to follow this patient Appreciate Hospitalist input Charges/Coding Visit Charges Inpatient E&M: 51710 Sub[facility] Hosp L1 (Post-op) 12/20/22 0904 <Electronically signed by Becky MENSAH PA-C> Cosigner Signature (if applicable): CC: ~ Signed [facility] Work Phone: 1(673) 226-803208-28-2023 History and physical note Author Jerardo Millan [facility] December 19, 2022 5:29pm Note Date/Time December 19, 2022 5: 30pm [facility] Medical Records Department [address] [place] [address] History & Physical Exam 12/19/22 1715 MR#: [id number] Acct: [id number] Name: TRE QUIÑONES Rep #:[id number] : 1955 67 From: Jerardo Kitchen [place]: [facility] [facility] [place] [facility]-3 HPI - General General Date of Admission: 12/19/22 Date of Service: 12/19/22 Chief Complaint: Acute onset and bulging at umbilical hernia HPI Narrative TRE QUIÑONES, is a 67 M who presents to [facility] ER with c/o acute ab pain and associated nausea that began this AM while trying to install a new floor. He also states that he experienced this with bulging at his known umbilical hernia. He reports he was unable to push the hernia back in an decided to seek evaluation. Additionally he does confirm that he was able to eat breakfast and had a normal BM at home prior to his presentation. Mr. Quiñones reports an approximately 2 year history with this hernia. He is unable to recall how it occurred but states that it has primarily been fat that has acted as the contents of this hernia. [facility] recounts too [facility] but was told he needed to lose additional weight prior to proceeding. He reports that he began this weight loss and was down to within five pounds of the recommended weight but wasstill denied. Mr. Quiñones has a complex past cardiac history inclusive of afib s/p ablation nowon xarelto (last dose this AM) as well as diastolic CHF. His reports that he is [facility] now but previously was a patient of Dr. Taylor. He has no prior abdominal surgical history. [facility] Medical History (Updated 12/19/22 @ 16:[address] Asad Mcdonough MD) Acute posterior anal fissure Asthma Atypical atrial flutter Bradycardia Chronic diastolic (congestive) heart failure Essential (primary) hypertension Hemorrhoids, internal, with bleeding Morbid obesity with BMI of 40.0-44.9, adult Obstructive sleep apnea Paroxysmal atrial fibrillation Secondary pulmonary arterial hypertension Sick sinus syndrome Home Medications albuterol sulfate 90 mcg/actuation aerosol inhaler 2 puff inhalation Q6H PRN PRNWheezing/SOB 07/21/17 [History Last Taken 07/18/17] lisinopril 20 mg tablet 20 mg PO DAILY 05/23/18 [History Last Taken 11/25/19] budesonide-formoterol HFA 160 mcg-4.5 mcg/actuation aerosol inhaler (Symbicort) 2 puff inhalation BID 09/19/19 [History Last Taken Unknown] rivaroxaban 20 mg tablet 20 mg PO DAILY #30 tabs 08/17/20 [Rx Last Taken Unknown] amlodipine 5 mg tablet 5 mg PO DAILY #30 tabs 05/06/21 [Rx Last Taken Unknown] furosemide 20 mg tablet 20 mg PO DAILY #90 tabs 05/06/21 [Rx Last Taken Unknown] amiodarone 200 mg tablet 200 mg PO DAILY #90 tabs 05/24/21 [Rx Last Taken Unknown] metoprolol succinate 50 mg tablet,extended release 24 hr 50 mg PO BID #180 tabs 06/14/21 [Rx Last Taken Unknown] tadalafil 5 mg tablet 5 mg PO DAILY 12/19/22 [History Last Taken Unknown] Allergy/AdvReac Type Severity Reaction Status Date / Time Environmental Allergies: Allergy NEEDS Verified 12/19/22 13:47 Uncoded FOLLOW-UP [hay fever] Family History Mother Diabetes Hypertension Father Cancer prostate Other CVA (cerebral vascular accident) Surgical History History of cardiac radiofrequency ablation (08/24/18) History of cardioversion (06/11/18) History of colonoscopy (11/25/19) History of hemorrhoidectomy History of left heart catheterization (07/21/17) Presence of permanent cardiac pacemaker (12/01/17) Social History household members: spouse Smoking Status: Former smoker substance use type: does not use ROS Respiratory/Chest Respiratory/Chest: Reports cough Gastrointestinal Gastrointestinal: Reports abdominal pain and nausea; Denies constipation or vomiting Vital Signs Vital Signs Vital Signs: 12/19/22 13:47 12/19/22 14:58 12/19/22 16:36 Temperature 96.8 F L Temperature Source Temporal Pulse Rate 63 Respiratory Rate 18 16 Blood Pressure 138/88 H 138/77 H Blood Pressure Mean 104 97 Pulse Ox 100 Oxygen Delivery Method Room Air 12/19/22 16:56 Temperature 97.9 F Temperature Source Oral Pulse Rate 59 L Respiratory Rate 18 Blood Pressure 134/82 H Blood Pressure Mean 99 Pulse Ox 95 Oxygen Delivery Method Weight Weight: 309 lb Body Mass Index (BMI) 41.9 Physical Exam Const alert Constitutional Narrative: distressed from ab discomfort. Resp normal respiratory effort GI GI Narrative: obese, non distended, no scars. Umbilical bulge soft without discoloration. Remainder of abdomen slightly tender to palpation. Results Lab / Micro Data 12/19/22 14:16 12/19/22 14:16 Labs: Laboratory Results - last 24 hr 12/19/22 14:16: WBC 8.2, RBC 4.73, Hgb 13.8, Hct 42.6, MCV 90.1, MCH 29.2, MCHC 32.4, RDW Std Deviation 43.6, RDW Coeff of Mar 13.1, Plt Count 209, MPV 10.8, Immature Gran % (Auto) 0.400, Neut % (Auto) 69.7, Lymph % (Auto) 21.0, [place] % (Auto) 6.9, Eos % (Auto) 1.0, Baso % (Auto) 1.0, Absolute Neuts (auto) 5.8, Absolute Lymphs (auto) 1.73, Nucleated RBC % 0, Sodium 142, Potassium 4.0, Chloride 111 H, Carbon Dioxide 27.0, Anion Gap 4 L, BUN 26 H, Creatinine 1.11, Est GFR (MDRD) Af Amer 85, Est GFR (MDRD) Non-Af 71, BUN/Creatinine Ratio 23.4 H, Glucose 112 H, Calcium 9.3, Total Bilirubin 0.60, AST 14 L, ALT 31, Alkaline Phosphatase 53, Total Protein 7.3, Albumin 4.2, Globulin 3.1, Albumin/Globulin Ratio 1.4 Radiology Impression Abdomen/Pelvis CT 12/19/22 14:50 IMPRESSION: Small right paraumbilical hernia containing fluid distended small bowel, mild mesenteric edema, and mild free fluid with mild fluid dilatation of small bowel proximal to the hernia sac, suspicious for strangulated hernia with early small bowel obstruction. Colonic diverticulosis without acute diverticulitis. Electronically Signed: Margaret Morse MD at 15:29 EDT Reading Location ID and State: [facility] / [place] Tel , Service support , Assessment & Plan Assessment/Plan (1) Incarcerated umbilical hernia: PLAN: This is a 67 yo male with a complex past cardiopulmonary history and morbid obesity who presents with an incarcerated umbilical hernia. Radiology reported possible strangulation and early obstruction on CT, however, patient had normal WBC and soft hernia contents without discoloration of the skin. Based on these latter observations I attempted reduction at bedside and was ultimately successful. Given this radiologic report and patient's persistent pain I have recommended diagnostic laparoscopy to further evaluate the bowel. Ihave been intentional about communicate his heightened risk for bleeding due to the concurrent anticoagulation. He is also aware that if his bowel is felt to be nonviable then he would require resection and reanastomosis. Lastly we have discussed delaying his hernia repair to a future date when he can come off his Xarelto preoperatively. Patient now to be transferred to OR for emergent diagnostic laparoscopy and postoperatively will be admitted to observation status. Charges/Coding Visit Charges Inpatient E&M: 55647 Init Hosp L2 12/19/22 1729 <Electronically signed by Jerardo Millan MD> Cosigner Signature (if applicable): CC: Dr. Jerardo Millan MD; [facility]~ Signed [facility] Work Phone: 1([phone]) 697-997908-28-2023 Discharge summary Author Asad Mcdonough [facility] December 19, 2022 5:15pm Note Date/Time December 19, 2022 2: 18pm [facility] Medical Records Department [address] [place] [address] Emergency Department Summary 12/19/22 MR#: [id number] Acct: [id number] Name: TRE QUIÑONES Rep #:[id number] : 1955 67 From: Asad Mcdonough MD [place]CP: [facility] [facility] [place] [facility] HPI HPI - GI History of Present Illness Chief Complaint: Abd Pain Informant: patient Abdominal Pain/Flank Pain Onset: Today Context: Gradual Onset Timing: Continuous Quality: - (pain) Location: - (Just right of supraumbilical, at location of known ventral hernia) Current Severity: Severe Maximum Severity: Severe Worsened by: Movement Relieved by: Nothing Nausea/Vomiting/Emesis GI Symptom: Positive for Nausea; Negative for Vomiting Diarrhea/Melena/Hematochezia GI Symptom: Positive for - (Last bowel movement today and normal); Negative for Diarrhea, Melena or Hematochezia Associated Symptoms Associated Symptoms: Negative for Dysuria, Frequency, Hematuria or Urgency Narrative Narrative: Abdominal pain at the site of a known ventral hernia that has been there for years that started today while he was trying to hang a door in his house. Pain was not suddenly severe, it came on gradually and has progressively worsened, not going away. No vomiting but nauseated. States he has had minor discomfort in this area sometimes after meals in the past but nothing like this. Has been seen at the [place] and considered for elective repair, he states they were putting it off until he could lose weight and become a better surgical candidate. [facility] Medical History (Updated 12/19/22 @ 16:[address] Asad Mcdonough MD) Acute posterior anal fissure Asthma Atypical atrial flutter Bradycardia Chronic diastolic (congestive) heart failure Essential (primary) hypertension Hemorrhoids, internal, with bleeding Morbid obesity with BMI of 40.0-44.9, adult Obstructive sleep apnea Paroxysmal atrial fibrillation Secondary pulmonary arterial hypertension Sick sinus syndrome Home Medications albuterol sulfate 90 mcg/actuation aerosol inhaler 2 puff inhalation Q6H PRN PRNWheezing/SOB 07/21/17 [History Last Taken 07/18/17] lisinopril 20 mg tablet 20 mg PO DAILY 05/23/18 [History Last Taken 11/25/19] budesonide-formoterol HFA 160 mcg-4.5 mcg/actuation aerosol inhaler (Symbicort) 2 puff inhalation BID 09/19/19 [History Last Taken Unknown] rivaroxaban 20 mg tablet 20 mg PO DAILY #30 tabs 08/17/20 [Rx Last Taken Unknown] amlodipine 5 mg tablet 5 mg PO DAILY #30 tabs 05/06/21 [Rx Last Taken Unknown] furosemide 20 mg tablet 20 mg PO DAILY #90 tabs 05/06/21 [Rx Last Taken Unknown] amiodarone 200 mg tablet 200 mg PO DAILY #90 tabs 05/24/21 [Rx Last Taken Unknown] metoprolol succinate 50 mg tablet,extended release 24 hr 50 mg PO BID #180 tabs 06/14/21 [Rx Last Taken Unknown] tadalafil 5 mg tablet 5 mg PO DAILY 12/19/22 [History Last Taken Unknown] Allergy/AdvReac Type Severity Reaction Status Date / Time Environmental Allergies: Allergy NEEDS Verified 12/19/22 13:47 Uncoded FOLLOW-UP [hay fever] Family History Mother Diabetes Hypertension Father Cancer prostate Other CVA (cerebral vascular accident) Surgical History History of cardiac radiofrequency ablation (08/24/18) History of cardioversion (06/11/18) History of colonoscopy (11/25/19) History of hemorrhoidectomy History of left heart catheterization (07/21/17) Presence of permanent cardiac pacemaker (12/01/17) Social History household members: spouse Smoking Status: Former smoker substance use type: does not use ROS ROS ED Constitutional Constitutional ED: Denies chills or fever(s) Eyes Eyes: Denies change in vision or diplopia ENT ENT ED: Denies rhinorrhea or sore throat Cardiovascular Cardiovascular: Denies chest pain or palpitations Respiratory/Chest Respiratory/Chest: Denies cough or dyspnea Gastrointestinal Gastrointestinal: Reports abdominal pain and nausea; Denies diarrhea, hematochezia, melena or vomiting Genitourinary Genitourinary ED: Denies dysuria or hematuria Musculoskeletal Musculoskeletal: Denies back pain or neck pain Integumentary Denies abscess or rash Neurologic Neurologic: Denies headache(s), paresthesias or weakness Psychiatric Psychiatric: Denies anxiety or suicidal thoughts EXAM Physical Exam Const Vital Signs: 12/19/22 13:47 12/19/22 14:58 12/19/22 16:36 Temperature 96.8 F L Temperature Source Temporal Pulse Rate 63 Respiratory Rate 18 16 Blood Pressure 138/88 H 138/77 H Blood Pressure Mean 104 97 Pulse Ox 100 Oxygen Delivery Method Room Air Positive well nourished, well developed and obese Constitutional Narrative: Uncomfortable due to pain but in no distress General Appearance ED: well developed and NAD Nutritional Appearance: obese HEENT Reports moist mucous membranes normocephalic and atraumatic Eyes PERRL and EOMs intact bilaterally Neck full ROM and supple Resp normal respiratory effort and clear to auscultation bilaterally Cardio regular rate, regular rhythm and no murmurs GI non-distended GI Narrative: Extremely tender ventral hernia at and just right of umbilicus, no overlying discoloration, irreducible Auscultation: normoactive bowel sounds Palpation: soft Back/Spine no CVA tenderness General Back: other FROM Extremity normal to inspection General Extremety ED: Negative for edema, pulses abnormal or tenderness General Extremity: Negative for edema or pulses abnormal Neuro oriented x3, CN's II-XII intact bilaterally and no sensory deficits noted Sensorium / Orientation: awake and alert Motor Exam: strength 5/5 throughout Skin no rashes or lesions noted and no wounds MDM MDM MDM Narrative Medical decision making narrative: Initially gave the patient IV pain medication, light him supine, place an ice pack for 20 minutes, and then attempted to reduce the hernia with steady pressure, this was unsuccessful and very painful. Patient was given more pain medications and sent to CT for an IV contrasted CT of the abdomen/pelvis. I reviewed these images as well as the report which I agree with, basically consistent with an incarcerated ventral/umbilical hernia. Discussed with Dr. Millan with surgery, who evaluated the patient. Patient is on Xarelto due to history of A-fib/flutter, he took his last dose this morning less than 12 hours ago. He was able to get the patient adequately reduced, but is admitting him toobservation for laparoscopy tomorrow. He requested that medicine be consulted who I discussed with. Lab Data Attestation: I reviewed the patient's lab results. Labs: Laboratory Results - last 24 hr 12/19/22 14:16 WBC 8.2 RBC 4.73 Hgb 13.8 Hct 42.6 MCV 90.1 MCH 29.2 MCHC 32.4 RDW Std Deviation 43.6 RDW Coeff of Mar 13.1 Plt Count 209 MPV 10.8 Immature Gran % (Auto) 0.400 Neut % (Auto) 69.7 Lymph % (Auto) 21.0 [place] % (Auto) 6.9 Eos % (Auto) 1.0 Baso % (Auto) 1.0 Absolute Neuts (auto) 5.8 Absolute Lymphs (auto) 1.73 Nucleated RBC % 0 Sodium 142 Potassium 4.0 Chloride 111 H Carbon Dioxide 27.0 Anion Gap 4 L BUN 26 H Creatinine 1.11 Est GFR (MDRD) Af Amer 85 Est GFR (MDRD) Non-Af 71 BUN/Creatinine Ratio 23.4 H Glucose 112 H Calcium 9.3 Total Bilirubin 0.60 AST 14 L ALT 31 Alkaline Phosphatase 53 Total Protein 7.3 Albumin 4.2 Globulin 3.1 Albumin/Globulin Ratio 1.4 Radiography Diagnostic Testing: Clinical Impression(s) from Imaging Studies Abdomen/Pelvis CT 12/19/22 14:50 IMPRESSION: Small right paraumbilical hernia containing fluid distended small bowel, mild mesenteric edema, and mild free fluid with mild fluid dilatation of small bowel proximal to the hernia sac, suspicious for strangulated hernia with early small bowel obstruction. Colonic diverticulosis without acute diverticulitis. Electronically Signed: Margaret Morse MD at 15:29 EDT Reading Location ID and State: [facility] / [place] Tel , Service support , Management Discussion w/another healthcare provider: Hospitalist and [employer] (Sander Millan) Discharge Plan Dx/Rx/DC Orders Clinical Impression: Incarcerated umbilical hernia Disposition Disposition: Acute Care Hospital [facility] What to do if you have Problems For any increased pain, shortness of breath, bleeding, nausea or vomiting, chestpain, or any unexpected problems, contact your Primary Care Provider. Call [facility] ([phone]) or report to the closest Emergency Room. Call 911 if necessary. 12/19/22 1651 <Electronically signed by Asad Mcdonough MD> Cosigner Signature (if applicable): CC: [facility] ~ Signed ADDENDUM by Dr. Asad Mcdonough MD on 12/19/22 at 1717 Patient is going to laparoscopy tonight. Preop EKG was obtained, it shows AV sequential pacing and capture without acute injury pattern, and 1 view chest x- ray on my interpretation shows mild cardiomegaly but no other acute abnormalities. 12/19/22 7759<Electronically signed by Asad Mcdonough MD> Cosigner Signature (if applicable): cc: [facility] ~* Signed [facility] Work Phone: Evaluation note* Diagnosis Onset Date Resolution Status Incarcerated umbilical hernia acute [facility] Work Phone: Evaluation note* Diagnosis Onset Date Resolution Status Incarcerated umbilical hernia resolved Status post umbilical hernia repair, follow-up exam acute Status post umbilical hernia repair, follow-up exam acute Status post umbilical hernia repair, follow-up exam acute [facility] Work Phone: evaluation note* Diagnosis 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 Unspecified disorders of arteries and arterioles Pre-operative cardiovascular examination Atrial fibrillation, unspecified type (HCC) Mitral valve disorder Mitral valve disorders Disorder of artery or arteriole (HCC) Unspecified disorders of arteries and arterioles Pre-operative cardiovascular examination Atrial fibrillation, unspecified type (HCC) Mitral valve disorder Mitral valve disorders [facility] Diagnosis Pre-operative cardiovascular examination- Primary Disorder of artery or arteriole (HCC) Unspecified disorders of arteries and arterioles Atrial fibrillation, unspecified type (HCC) Mitral valve disorder Mitral valve disorders Disorder of artery or arteriole (HCC) Unspecified disorders of arteries and arterioles Pre-operative cardiovascular examination Atrial fibrillation, unspecified type (HCC) Mitral valve disorder Mitral valve disorders [facility] Diagnosis Pre-operative cardiovascular examination- Primary Disorder of artery or arteriole (HCC) Unspecified disorders of arteries and arterioles Atrial fibrillation, unspecified type (HCC) Mitral valve disorder Mitral valve disorders Disorder of artery or arteriole (HCC) Unspecified disorders of arteries and arterioles Pre-operative cardiovascular examination Atrial fibrillation, unspecified type (HCC) Mitral valve disorder Mitral valve disorders [facility] Diagnosis Pre-op exam- Primary Preoperative examination, [...] Mitral valve disorders [facility]* Diagnosis Disorder of artery or arteriole (HCC) Unspecified disorders of arteries and arterioles Pre-operative cardiovascular examination Atrial fibrillation, unspecified type (HCC) Mitral valve disorder Mitral valve disorders Disorder of artery or arteriole (HCC) Unspecified disorders of arteries and arterioles Pre-operative cardiovascular examination Atrial fibrillation, unspecified type (HCC) Mitral valve disorder Mitral valve disorders [facility] Diagnosis Pacemaker reprogramming/check Fitting and adjustment of cardiac pacemaker Disorder of artery or arteriole (HCC) Unspecified disorders of arteries and arterioles Pre-operative cardiovascular examination Atrial fibrillation, unspecified type (HCC) Mitral valve disorder Mitral valve disorders [facility] Diagnosis Disorder of artery or arteriole (HCC) Unspecified disorders of arteries and arterioles Pre-operative cardiovascular examination Atrial fibrillation, unspecified type (HCC) Mitral valve disorder Mitral valve disorders Disorder of artery or arteriole (HCC) Unspecified disorders of arteries and arterioles Pre-operative cardiovascular examination Atrial fibrillation, unspecified type (HCC) Mitral valve disorder Mitral valve disorders [facility] Diagnosis Encounter for preoperative anesthesiology assessment for cardiac surgery- Primary Disorder of artery or arteriole (HCC) Unspecified disorders of arteries and arterioles Pre-operative cardiovascular examination Atrial fibrillation, unspecified type (HCC) Mitral valve disorder Mitral valve disorders documented in this encounter [facility] note* Diagnosis Mitral valve insufficiency, unspecified etiology- Primary Disorder of artery or arteriole (HCC) Unspecified disorders of arteries and arterioles Pre-operative cardiovascular examination Atrial fibrillation, unspecified type (HCC) Mitral valve disorder Mitral valve disorders [facility] Diagnosis Disorder of artery or arteriole (HCC) Unspecified disorders of arteries and arterioles Pre-operative cardiovascular examination Atrial fibrillation, unspecified type (HCC) Mitral valve disorder Mitral valve disorders Disorder of artery or arteriole (HCC) Unspecified disorders of arteries and arterioles Pre-operative cardiovascular examination Atrial fibrillation, unspecified type (HCC) Mitral valve disorder Mitral valve disorders documented in this encounter [facility] note* Diagnosis S/P MVR (mitral valve repair)- Primary Other postprocedural status S/P TVR (tricuspid valve repair) Other postprocedural status S/P Maze operation for atrial fibrillation Other postprocedural status Cardiac pacemaker in situ [facility] Diagnosis Surgery follow-up Follow-up examination, following unspecified surgery documented in this encounter [facility] note* Diagnosis Dyspnea, unspecified type documented in this encounter [facility] Work Phone: Evaluation note* Diagnosis Dyspnea, unspecified type- Primary Dyspnea, unspecified type documented in this encounter [facility] Work Phone: Evaluation note* Diagnosis Onset Date Resolution Status Admit Date Dyspnea on exertion acute August 232024 11:24am S/P mitral valve repair acute [facility] 2024 11:24am Atypical atrial flutter chronic [facility] 2024 11:24am Essential (primary) hypertension chronic September 18, 2024 11:24am Presence of permanent cardiac pacemaker December 01, 2017 chronic September 18 11:24am S/P tricuspid valve repair chronic September 18, 2024 11:24am [facility] Work Phone: Evaluation note* Diagnosis Erectile dysfunction, unspecified erectile dysfunction type- Primary documented in this encounter [facility]* Diagnosis Erectile dysfunction, unspecified erectile dysfunction type- Primary [facility] Outpatient Procedure (Routine) - New Request Specialty Diagnoses / Procedures Referred By Contac t Referred To Contact [facility] Diagnoses Disorder of artery or arteriole (HCC) Pre-operative cardiovascular examination Atrial fibrillation, unspecified type (HCC) Mitral valve disorder Procedures LUNG DIFFUSION CAPACITY (DLCO) DIFFUSING CAPACITY Phillip Diamond MD [address] [place] [address] [facility] [place] [address] [place] [address] Referral ID Status Reason Start Date Expiration Date Visits Requested Visits Authorized [id number] New Request Auto-Generat ed Referral 12/08/2023 01/06/2025 1 1 * Outpatient Procedure (Routine) - New Request Specialty Diagnoses / Procedures Referred By Contac t Referred To [facility] Diagnoses Disorder of artery or arteriole (HCC) Pre-operative cardiovascular examination Atrial fibrillation, unspecified type (HCC) Mitral valve disorder Procedures SPIROMETRY BASELINE ONLY SPMTRY W/VC EXPIRATORY ABELARDO W/WO MXML VOL VNTJ Phillip Diamond MD [address] [place] [address] [facility] [place] [address] [place] [address] Referral ID Status Reason Start Date Expiration Date Visits Requested Visits Authorized [id number] New Request Auto-Generat ed Referral 12/08/2023 01/06/2025 [...] MTRL W/WO CNTRST IMGES Phillip Diamond MD [address] [place] [address] Ct Imaging [place] [address] Referral ID Status Reason Start Date Expiration Date Visits Requested Visits Authorized [id number] New Request Auto-Generat ed Referral 12/08/2023 01/06/2025 1 1 * Outpatient Procedure (Routine) - New Request Specialty Diagnoses / Procedures Referred By Contac t Referred To Contact [facility] Diagnoses Disorder of artery or arteriole (HCC) Pre-operative cardiovascular examination Atrial fibrillation, unspecified type (HCC) Mitral valve disorder Procedures ECHO ECHO TTHRC R-T 2D W/WOM-MODE COMPL SPEC&COLR D Phillip Diamond MD [address] [place] [address] [address] Referral ID Status Reason Start Date Expiration Date Visits Requested Visits Authorized [id number] New Request Auto-Generat ed Referral 12/08/2023 12/07/2024 1 1 * Outpatient Procedure (Routine) - New Request Specialty Diagnoses / Procedures [facility] To Contact [facility] [place] Diagnoses Disorder of artery or arteriole (HCC) Pre-operative cardiovascular examination Atrial fibrillation, unspecified type (HCC) Mitral valve disorder Procedures ECG COMPLETE ECG ROUTINE ECG W/LEAST 12 LDS W/I&R Phillip Diamond MD [address] [place] [address] [place] [address] Referral ID Status Reason Start Date Expiration Date Visits Requested Visits Authorized [id number] New Request Auto-Generat ed Referral 12/08/2023 12/07/2024 1 1 * Consult, Test, Treat (Routine) - Authorized Specialty Diagnoses / Procedures Referred By Dwayne t Referred To Contact Cardiac Surg Diagnoses Disorder of artery or arteriole (HCC) Pre-operative cardiovascular examination Atrial fibrillation, unspecified type (HCC) Mitral valve disorder Procedures CARDIOTHORACIC PREOP EVALUATION OFFICE/OUTPATIENT [facility] 60 MINUTES Phillip Diamond MD [address] [place] [address] Referral ID Status Reason Start Date Expiration Date Visits Requested Visits Authorized [id number] Authorized PCP Requested Referral 12/08/2023 12/07/2024 1 1 * Consult, Test, Treat (Routine) - Authorized Specialty Diagnoses / Procedures Referred By Dwayne t Referred To Contact Cardiology Diagnoses Disorder of artery or arteriole (HCC) Pre-operative cardiovascular examination Atrial fibrillation, unspecified type (HCC) Mitral valve disorder Procedures CONSULT TO CARDIOLOGY OFFICE/OUTPATIENT [facility] 60 MINUTES Phillip Diamond MD [address] [place] [id number] Referral ID Status Reason Start Date Expiration Date Visits Requested Visits Authorized [id number] Authorized PCP Requested Referral 12/08/2023 12/07/2024 1 1 [facility] for referral (narrative)* Outpatient Procedure (Routine) - Denied Specialty Diagnoses / Procedures Referred By Contac t Referred To Contact [facility] [place] Diagnoses Pacemaker reprogramming/check Procedures CARDIAC IMPLANTABLE DEVICE CHECK [address] [place] [address] Referral ID Status Reason Start Date Expiration Date V isits Requested Visits Authorized [id number] Denied Auto-Generat ed Referral Patient Cleared - Admin/Chairm an/Director advise to proceed or did not respond 12/12/2023 12/11/2024 1 0 * Outpatient Procedure (Routine) - Denied Specialty Diagnoses / Procedures Referred By Contac t Referred To Contact [facility] Diagnoses Pacemaker reprogramming/check Procedures [place] [address] [facility] [address] [address] Referral ID Status Reason Start Date Expiration Date V isits Requested Visits Authorized [id number] Denied Auto-Generat ed Referral Patient Cleared - Admin/Chairm an/Director advise to proceed or did not respond 12/12/2023 12/11/2024 1 0 [facility] for referral (narrative)No reason for referral information [facility] Work Phone: Reason for visit Narrative* Outpatient Procedure (Routine) - Denied Specialty Diagnoses / Procedures Referred By Contac t Referred To Contact [facility] [place] Diagnoses Pacemaker reprogramming/check Procedures [place] [address] [facility] [place] [address] [place] [address] Referral ID Status Reason Start Date Expiration Date V isits Requested Visits Authorized [id number] Denied Auto-Generat ed Referral Patient Cleared - Admin/Chairm an/Director advise to proceed or did not respond 12/12/2023 12/11/2024 1 0 [facility] Summary Purpose Family History Relationship Condition Age at Onset Recorded Date/T peg Not Specified Cerebrovascular accident (CVA) Unknown mother Diabetes mellitus Unknown Hypertension Unknown father Malignant neoplasm Unknown Family Member Condition Father Cancer Father Mother Diabetes - insulin d ependent Mother Advance Directives Advance Directive Response Recorded Date/ Time Name of Medical Power of Press Supervisor December 19, 2022 8:59pm Advance Directives Yes May 12:21pm Living Will Yes December 19 8:59pm Power of Press Supervisor Yes December 19 8:59pm Advance Directive Response Recorded Date/ Time Name of Medical Power of Press Supervisor December 19, 2022 7:59pm Name of Medical Power of Press Supervisor March 20, 2023 8:58am Advance Directives Yes May 11:21am Living Will Yes March 20 8:58am Power of Press Supervisor Yes March 20, 2023 8:58am Documents on File Type Date Recorded Patient 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 Spa Manager Expl anation Advance Directive(s) 01/23/2024 5:09 AM Date Activated Date Inactivated Comments 01/24/2024 1:30 PM Question Answer Comments Full Code Order Discussed With: Discussion Not M edically Appropriate Date Activated Date Inactivated Comments 01/24/2024 1:30 PM 01/29/2024 9:18 PM Documents on File Type Date Recorded Patient Day Spa Manager Expl anation Advance Directive(s) 01/23/2024 5:09 AM Date Activated Date Inactivated Comments 01/24/2024 1:30 PM 01/29/2024 9:18 PM Question Answer Comments Full Code Order Discussed With: Discussion Not M edically Appropriate Advance Directive Response Recorded Date/ Time Do you have a Healthcare Power of Press Supervisor? Yes August 13, 2024 11:47am Advance Directives Yes February 11:19am Advance Directive Response Recorded Date/ Time Advance Directives Yes February 11:19am Advance Directive Response Recorded Date/ Time Living Will Yes November 21, 2023 7:13am Do you have a Healthcare Power of Press Supervisor? Yes November 21, 2023 7:13am Advance Directives Yes February 11:19am Chief Complaint and Reason for Visit Chief Complaint INCARCERATED UMBILIC AL HERNIA INCARCERATED UMBILICAL HERNIA INCARCERATED UMBILICAL HERNIA INCARCERATED UMBILICAL HERNIA Reason for Visit Incarcerated umbilic al hernia Chief Complaint INCARCERATED UMBILIC AL HERNIA INCARCERATED UMBILICAL HERNIA INCARCERATED UMBILICAL HERNIA INCARCERATED UMBILICAL HERNIA 2WK F/U 12/20 Umbilical Hernia Surgery 12/20 Umbilical Hernia Surgery Update H/P Hernia Surgery UMBILICAL HERNIA W/O GANGRENE Lap Robotic Umb/Ventral Hernia w/mesh Lap Robotic Umb/Ventral Hernia w/mesh Reason for Visit Incarcerated umbilic al hernia Status post umbilical hernia repair, follow-up exam Status post umbilical hernia repair, follow-up exam Status post umbilical hernia repair, follow-up exam Chief Complaint Admit Date Pacer Check Remote June 13, 2024 3:12am sob August 13, 2024 11: 34am 3 M FU September 18, 2024 11:24 am Reason for Visit Admit Date Dyspnea on exertion September 18, 2024 11:24 am S/P mitral valve repair September 18, 2024 1 1:24am Atypical atrial flutter September 18, 2024 1 1:24am Essential (primary) hypertension August 11:24am Presence of permanent cardiac pacemaker September 18, 2024 11:24am S/P tricuspid valve repair September 18 11:24am Chief Complaint Admit Date Pacer Check Remote June 13, 2024 3:12am sob August 13, 2024 11: 34am 3 M FU September 18, 2024 11:24 am Pacer Check Remote September 19, 2024 3:24a m Chief Complaint Admit Date sob August 13, 2024 11: 34am 3 M FU September 18, 2024 11:24 am Pacer Check Remote September 19, 2024 3:24a m SOB, ENSURE VALVE IS STABLE October 24 8:52am Chief Complaint Admit Date 3 M FU September 18, 2024 11:24 am Pacer Check Remote September 19, 2024 3:24a m SOB, ENSURE VALVE IS STABLE October 24 8:52am Pacer Check Remote December 19, 2024 3: 10am Chief Complaint Admit Date SOB, ENSURE VALVE IS STABLE October 24 8:52am Pacer Check Remote December 19, 2024 3: 10am PPM GENERATOR CHANGE (JHR 2P) January 13, 2025 1:12pm 1 Y FU (PPM F/U LEANN 1:30) December 1:18pm Reason for Visit Admit Date 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 S eptember 2024 1:12pm Presence of left atrial appendage closur e device January 13, 2025 1:12pm S/P Maze operation for atrial fibrillati on January 13, 2025 1:12pm Atypical atrial flutter January 13, 2025 1:12pm Presence of permanent cardiac pacemaker January 13, 2025 1:12pm Sick sinus syndrome January 13, 2025 1:12pm Dyspnea on exertion January 13, 2025 1:18pm S/P mitral valve repair January 13, 2025 1:18pm Atypical atrial flutter January 13, 2025 1:18pm Essential (primary) hypertension Septemb er 2024 1:18pm Presence of permanent cardiac pacemaker January 13, 2025 1:18pm S/P tricuspid valve repair December 1:18pm Chief Complaint Admit Date SOB, ENSURE VALVE IS STABLE October 24 8:52am Pacer Check Remote December 19, 2024 3: 10am PPM GENERATOR CHANGE (JHR 2P) January 13, 2025 1:12pm 1 Y FU (PPM F/U LEANN 1:30) December 1:18pm Pacer Check Remote January 14, 2025 9:00am Pacer Check Remote January 18, 2025 3:11am Reason for Referral Specialty Diagnoses / Procedures Referred By Dwayne t Referred To Contact [facility] [place] Procedures CARDIOVASCULAR MEDICINE OP FOLLOW UP APPT ORDER Moiz Koenig MD [address] [place] [address] [facility] [place] [address] [place] [address] Referral ID Status Reason Start Date Expiration Date Visits Requested Visits Authorized [id number] Ref Not Required PCP Requested Referral 01/19/2024 01/18/2025 1 1 Specialty Diagnoses / Procedures Referred By Contac t Referred To Contact CT IMAGING Diagnoses Disorder of artery or arteriole (HCC) Pre-operative cardiovascular examination Atrial fibrillation, unspecified type (HCC) Mitral valve disorder Procedures CTA CHEST/ABD/PEL (GATED) W IVCON CT ANGIOGRAPHY CHEST W/CONTRAST/NONCONTRAST CT ANGIO ABD&PLVIS CNTRST MTRL W/WO CNTRST Phillip Rayo MD [address] [place] [address] Ct Imaging [place] [address] Referral ID Status Reason Start Date Expiration Date V isits Requested Visits Authorized [id number] Closed Auto-Generate d Referral 12/08/2023 01/06/2025 1 1 Specialty Diagnoses / Procedures Referred By Contac t Referred To Contact Radiology Diagnoses Dyspnea, unspecified type Procedures XR CHEST PA+LAT 2 VIEWS Chelsie Nieves, [employer]ERR[employer]ING TRUER [address] [place] [address] [facility] [address] [place] [address] [place] [address] Referral ID Status Reason Start Date Expiration Date Visits Re quested Visits Authorized [id number] Closed 07/10/2023 07/09/2024 1 1 Additional Source Comments (unrecognized sect ion and content) No Status Records FoundNo Status Records FoundNo Status Records FoundNo Status Records FoundNo Status Records FoundNo Status Records FoundNo Status Records FoundNo Status Records Found INFORMATION SOURCE (unrecogn ized section and content) DATE CREATED AUTHOR 10/18/2017 [facility] DATE CREATED AUTHOR AUTHOR'S ORGANIZ ATION 03/11/2021 [facility] DATE CREATED AUTHOR AUTHOR'S ORGANIZ ATION 05/23/2021 [facility] DATE CREATED AUTHOR AUTHOR'S ORGANIZ ATION 07/13/2023 [facility] DATE CREATED AUTHOR AUTHOR'S ORGANIZ ATION 04/18/2024 [facility] DATE CREATED AUTHOR AUTHOR'S ORGANIZ ATION 11/05/2024 [facility] DATE CREATED AUTHOR AUTHOR'S ORGANIZ ATION 12/17/2024 [facility] DATE CREATED AUTHOR AUTHOR'S ORGANIZ ATION 01/14/2025 [facility] Care Teams (unrecognized sec tion and content) Team Status: Active Member Role Status Dates Dr. Evelyn Kruse MD Family Provider Active [facility] Primary Care Provider Active Team Status: Active Member Role Status Dates Dr. Asad Mcdonough MD Emergency Provider Active [facility] Primary Care Provider Active Dr. Jerardo Millan MD Attending Provider, Other Provi shavonne Active Team Status: Active Member Role Status Dates Dr. Asad Mcdonough MD Emergency Provider Active [facility] Primary Care Provider Active Dr. Jerardo Millan MD Admit Provider, Other Provider Active Dr. Juana Rodriguez MD Other Provider Active Becky MENSAH PAErichC Attending Provider Active Team Status: Active Member Role Status Dates Dr. Asad Mcdonough MD Emergency Provider Active [facility] Primary Care Provider Active Dr. Jerardo Millan MD Admit Provider, Other Provider Active Dr. Juana Rodriguez MD Attending Provider, Other Provid er Active Team Status: Inactive Member Role Status Dates Dr. Asad Mcdonough MD Emergency Provider Active [facility] Primary Care Provider Active Dr. Jerardo Millan MD Admit Provider, Attending Provi shavonne Active Dr. Juana Rodriguez MD Other Provider Active Team Status: Inactive Member Role Status Dates Dr. Jerardo Millan MD Attending Provider, Referring P rovider Active [facility] Doctor Primary Care Provider Active Team Status: Inactive Member Role Status Dates [facility] Doctor Primary Care Provider, Referring Pr ovider Active Dr. Jerardo Millan MD Attending Provider Active Team Status: Inactive Member Role Status Dates [facility] Doctor Primary Care Provider Active Dr. Jerardo Millan MD Attending Provider, Referring P rovider Active Team Status: Active Member Role Status Dates Dr. Jerardo Millan MD Attending Provide r, Referring Provider, Other Provider Active [facility] Primary Care Provider Active Dr. Sherif Kiser MD Other Provider Active Team Status: Inactive Member Role Status Dates Dr. Jerardo Millan MD Attending Provider, Referring P rovider Active [facility] Primary Care Provider Active Dr. Sherif Kiser MD Other Provider Active Team Status: Active Member Role Status Dates Dr. Jerardo Millan MD Attending Provider, Referring P rovider Active [facility] Primary Care Provider Active Team Status: Inactive Member Role Status Dates Dr. Jerardo Millan MD Attending Provider, Referring P rovider Active [facility] Primary Care Provider Active Supervisor Anodizing Relationship Specialty Start Date End Date Phillip Diamond MD [address] [place] [address] Surgeon Cardiac Surg 12/06/23 Omer Wray MD [address] [place] [address] Cardiology 12/06/23 Supervisor Anodizing Relationship Specialty Start Date End Date Omer Wray MD [address] [phone] PCP - General Cardiology 01/15/24 Phillip Diamond MD [address] [place] [address] Surgeon Cardiac Surg 12/06/23 Omer Wray MD [address] [place] [address] Cardiology 12/06/23 Moiz Koenig MD [address] [place] [address] Primary Staff Physician Cardiology 01/19/24 Supervisor Anodizing Relationship Specialty Start Date End Date Omer Wray MD [address] [phone] PCP - General Cardiology 01/15/24 Phillip Diamond MD [address] [place] [address] Surgeon Cardiac Surg 12/06/23 Omer Wray MD [address] [place] [address] Cardiology 12/06/23 Moiz Koenig MD [address] [place] [address] Primary Staff Physician Cardiology 01/19/24 Supervisor Anodizing Relationship Specialty Start Date End Date Omer Wray MD [address] [phone] PCP - General Cardiology 01/15/24 Phillip Diamond MD [address] [place] [address] Surgeon Cardiac Surg 12/06/23 Omer Wray MD [address] [place] [phone] Cardiology 12/06/23 Moiz Koenig MD [address] [place] [address] Primary Staff Physician Cardiology 01/19/24 Supervisor Anodizing Relationship Specialty Start Date End Date Omer Wray MD [address] [phone] PCP - General Cardiology 01/15/24 Phillip Diamond MD [address] [place] [address] Surgeon Cardiac Surg 12/06/23 Omer Wray MD [address] [place] [phone] Cardiology 12/06/23 Moiz Koenig MD [address] [place], [place] [phone] Primary Staff Physician Cardiology 01/19/24 Supervisor Anodizing Relationship Specialty Start Date End Date Omer Wray MD [address] [facility] [address] [place] [address] PCP - General Cardiology 01/15/24 Phillip Diamond MD [address] [place] [address] Surgeon Cardiac Surg 12/06/23 Omer Wray MD [address] [place] [phone] Cardiology 12/06/23 Moiz Koenig MD [address] [place] [address] Primary Staff Physician Cardiology 01/19/24 Supervisor Anodizing Relationship Specialty Start Date End Date Omer Wray MD [address] [address] PCP - General Cardiology 01/15/24 Phillip Diamond MD [address] [place] [address] Surgeon Cardiac Surg 12/06/23 Omer Wray MD [address] [place] [address] Cardiology 12/06/23 Moiz Koenig MD [address] [place] [address] Primary Staff Physician Cardiology 01/19/24 Supervisor Anodizing Relationship Specialty Start Date End Date Omer Wray MD [address] [address] PCP - General Cardiology 01/15/24 Phillip Diamond MD [address] [place] [address] Surgeon Cardiac Surg 12/06/23 Omer Wray MD [address] [place] [phone] Cardiology 12/06/23 Moiz Koenig MD [address] [place] [address] Primary Staff Physician Cardiology 01/19/24 Supervisor Anodizing Relationship Specialty Start Date End Date Omer Wray MD [address] [address] PCP - General Cardiology 01/15/24 Phillip Diamond MD [address] [place] [address] Surgeon Cardiac Surg 12/06/23 Omer Wray MD [address] [place] [address] Cardiology 12/06/23 Moiz Koenig MD [address] [place] [address] Primary Staff Physician Cardiology 01/19/24 Supervisor Anodizing Relationship Specialty Start Date End Date Omer Wray MD [address] [address] PCP - General Cardiology 01/15/24 Phillip Diamond MD [address] [place] [address] Surgeon Cardiac Surg 12/06/23 Omer Wray MD [address] [place] [address] Cardiology 12/06/23 Moiz Koenig MD [address] [place] [address] Primary Staff Physician Cardiology 01/19/24 Supervisor Anodizing Relationship Specialty Start Date End Date Omer Wray MD [address] [address] PCP - General Cardiology 01/15/24 Phillip Diamond MD [address] [place] [address] Surgeon Cardiac Surg 12/06/23 Omer Wray MD [address] [facility] [place] [address] Cardiology 12/06/23 Moiz Koenig MD [address] [place] [address] Primary Staff Physician Cardiology 01/19/24 Supervisor Anodizing Relationship Specialty Start Date End Date Omer Wray MD [address] [facility] [address] [place] [address] PCP - General Cardiology 01/15/24 Phillip Diamond MD [address] [place] [address] Surgeon Cardiac Surg 12/06/23 Omer Wray MD [address] [place] [phone] Cardiology 12/06/23 Moiz Koenig MD [address] [place] [address] Primary Staff Physician Cardiology 01/19/24 Supervisor Anodizing Relationship Specialty Start Date End Date Omer Wray MD [address] [facility] [address] [place], [place] [phone] PCP - General Cardiology 01/15/24 Phillip Diamond MD [address] [place] [address] Surgeon Cardiac Surg 12/06/23 Omer Wray MD [address] [place] [phone] Cardiology 12/06/23 Moiz Koenig MD [address] [place] [address] Primary Staff Physician Cardiology 01/19/24 Supervisor Anodizing Relationship Specialty Start Date End Date Omer Wray MD [address] [id number]- PCP - General Cardiology 01/15/24 Phillip Diamond MD [address] [place] [address] Surgeon Cardiac Surg 12/06/23 Omer Wray MD [address] [place] [phone] Cardiology 12/06/23 Moiz Koenig MD [address] [place] [address] Primary Staff Physician Cardiology 01/19/24 Supervisor Anodizing Relationship Specialty Start Date End Date Omer Wray MD [address] [phone] PCP - General Cardiology 01/15/24 Phillip Diamond MD [address] [place] [address] Surgeon Cardiac Surg 12/06/23 Omer Wray MD [address] [place] [phone] Cardiology 12/06/23 Moiz Koenig MD [address] [place] [address] Primary Staff Physician Cardiology 01/19/24 Supervisor Anodizing Relationship Specialty Start Date End Date Omer Wray MD [address] [address] PCP - General Cardiology 01/15/24 Phillip Diamond MD [address] [place] [address] Surgeon Cardiac Surg 12/06/23 Omer Wray MD [address] [place] [phone] Cardiology 12/06/23 Moiz Koenig MD [address] [place] [address] Primary Staff Physician Cardiology 01/19/24 Supervisor Anodizing Relationship Specialty Start Date End Date Omer Wray MD [address] [address] PCP - General Cardiology 01/15/24 Phillip Diamond MD [address] [place] [address] Surgeon Cardiac Surg 12/06/23 Omer Wray MD [address] [place] [phone] Cardiology 12/06/23 Moiz Koenig MD [address] [place] [address] Primary Staff Physician Cardiology 01/19/24 Team Status: Active Member Role Status Dates [facility] Primary Care Provider Active Team Status: Inactive Member Role Status Dates Dr. Omer Wray MD Attending Provider Active S tart: June 13, 2024 End: June 13, 2024 Dr. Omer Wray MD Referring Provider Active S tart: June 13, 2024 End: June 13, 2024 Team Status: Inactive Member Role Status Dates Dr. Qamar Rosario DO Attending Provider Active Start : August 13, 2024 End: August 13, 2024 Dr. Qamar Rosario DO Emergency Provider Active Start : August 13, 2024 End: August 13, 2024 [facility] Primary Care Provider Active Start: August 13, 2024 End: August 13, 2024 Team Status: Inactive Member Role Status Dates [facility] Primary Care Provider Active Start: September 18, 2024 End: September 18, 2024 [facility] Referring Provider Active Start: [place] 2024 End: September 18, 2024 Evelyn Deleon SENIOR ARCHITECT/DESIGN MANAGER, SENIOR ARCHITECT/DESIGN MANAGER-C Attending Provider Active S tart: September 18, 2024 End: September 18, 2024 Team Status: Inactive Member Role Status Dates [facility] Primary Care Provider Active Start: September 18, 2024 End: September 18, 2024 Evelyn Deleon SENIOR ARCHITECT/DESIGN MANAGER, SENIOR ARCHITECT/DESIGN MANAGER-C Attending Provider Active S tart: September 18, 2024 End: September 18, 2024 Evelyn Deleon SENIOR ARCHITECT/DESIGN MANAGER, SENIOR ARCHITECT/DESIGN MANAGER-C Referring Provider Active S tart: September 18, 2024 End: September 18, 2024 Team Status: Inactive Member Role Status Dates [facility] Primary Care Provider Active Start: September 19, 2024 End: September 19, 2024 Dr. Omer Wray MD Attending Provider Active S tart: September 19, 2024 End: September 19, 2024 Team Status: Active Member Role/Relationship Status Dates [facility] Primary Care Provider Active Team Status: Inactive Member Role/Relationship Status Dates Dr. Qamar Rosario DO Attending Provider Active Start : August 13, 2024 End: August 13, 2024 Dr. Qamar Rosario DO Emergency Provider Active Start : August 13, 2024 End: August 13, 2024 [facility] Primary Care Provider Active Start: August 13, 2024 End: August 13, 2024 Team Status: Inactive Member Role/Relationship Status Dates [facility] Primary Care Provider Active Start: September 18, 2024 End: September 18, 2024 [facility] Referring Provider Active Start: Ks mary 2024 End: September 18, 2024 Evelyn Deleon SENIOR ARCHITECT/DESIGN MANAGER, SENIOR ARCHITECT/DESIGN MANAGER-C Attending Provider Active S tart: September 18, 2024 End: September 18, 2024 Team Status: Inactive Member Role/Relationship Status Dates [facility] Primary Care Provider Active Start: September 18, 2024 End: September 18, 2024 Evelyn Deleon SENIOR ARCHITECT/DESIGN MANAGER, SENIOR ARCHITECT/DESIGN MANAGER-C Attending Provider Active S tart: September 18, 2024 End: September 18, 2024 Evelyn Deleon SENIOR ARCHITECT/DESIGN MANAGER, SENIOR ARCHITECT/DESIGN MANAGER-C Referring Provider Active S tart: September 18, 2024 End: September 18, 2024 Team Status: Inactive Member Role/Relationship Status Dates Dr. Omer Wray MD Attending Provider Active S tart: September 19, 2024 End: September 19, 2024 Dr. Omer Wray MD Referring Provider Active S tart: September 19, 2024 End: September 19, 2024 Team Status: Active Member Role/Relationship Status Dates [facility] Primary Care Provider Active Start: October 24, 2024 Dr. Omer Wray MD Attending Provider Active S tart: October 24, 2024 Team Status: Inactive Member Role/Relationship Status Dates Evelyn Deleon SENIOR ARCHITECT/DESIGN MANAGER, SENIOR ARCHITECT/DESIGN MANAGER-C Attending Provider Active S tart: October 24, 2024 End: October 24, 2024 Evelyn Deleon SENIOR ARCHITECT/DESIGN MANAGER, SENIOR ARCHITECT/DESIGN MANAGER-C Referring Provider Active S tart: October 24, 2024 End: October 24, 2024 [facility] Primary Care Provider Active Start: October 24, 2024 End: October 24, 2024 Supervisor Anodizing Relationship Specialty Start Date End Date Denny Cifuentes MD [address] [place] [phone] Surgeon Urology 11/14/22 Supervisor Anodizing Relationship Specialty Start Date End Date Denny Cifuentes MD [address] [place] [phone] Surgeon Urology 11/14/22 Supervisor Anodizing Relationship Specialty Start Date End Date Omer Wray MD [address] [address] PCP - General Cardiology 01/15/24 Phillip Diamond MD [address] [place] [address] Surgeon Cardiac Surg 12/06/23 Omer Wray MD [address] [place] [address] Cardiology 12/06/23 Moiz Koenig MD [address] [place] [address] Primary Staff Physician Cardiology 01/19/24 Team Status: Inactive Member Role/Relationship Status Dates [facility] Primary Care Provider Active Start: September 18, 2024 End: September 18, 2024 [facility] Referring Provider Active Start: Ludwig hernandez 2024 End: September 18, 2024 Evelyn Deleon SENIOR ARCHITECT/DESIGN MANAGER, SENIOR ARCHITECT/DESIGN MANAGER-C Attending Provider Active S tart: September 18, 2024 End: September 18, 2024 Team Status: Inactive Member Role/Relationship Status Dates [facility] Primary Care Provider Active Start: September 18, 2024 End: September 18, 2024 Evelyn Deleon SENIOR ARCHITECT/DESIGN MANAGER, SENIOR ARCHITECT/DESIGN MANAGER-C Attending Provider Active S tart: September 18, 2024 End: September 18, 2024 Evelyn Deleon SENIOR ARCHITECT/DESIGN MANAGER, SENIOR ARCHITECT/DESIGN MANAGER-C Referring Provider Active S tart: September 18, 2024 End: September 18, 2024 Team Status: Inactive Member Role/Relationship Status Dates Dr. Omer Wray MD Attending Provider Active S tart: September 19, 2024 End: September 19, 2024 Dr. Omer Wray MD Referring Provider Active S tart: September 19, 2024 End: September 19, 2024 Team Status: Active Member Role/Relationship Status Dates [facility] Primary Care Provider Active Start: October 24, 2024 Dr. Omer Wray MD Attending Provider Active S tart: October 24, 2024 Team Status: Inactive Member Role/Relationship Status Dates Evelyn Deleon SENIOR ARCHITECT/DESIGN MANAGER, SENIOR ARCHITECT/DESIGN MANAGER-C Attending Provider Active S tart: October 24, 2024 End: October 24, 2024 Evelyn Deleon SENIOR ARCHITECT/DESIGN MANAGER, SENIOR ARCHITECT/DESIGN MANAGER-C Referring Provider Active S tart: October 24, 2024 End: October 24, 2024 [facility] Primary Care Provider Active Start: October 24, 2024 End: October 24, 2024 Team Status: Inactive Member Role/Relationship Status Dates [facility] Primary Care Provider Active Start: December 19, 2024 End: December 19, 2024 Dr. Omer Wray MD Attending Provider Active S tart: December 19, 2024 End: December 19, 2024 Team Status: Active Member Role/Relationship Status Dates [facility] Primary care physician Active Team Status: Active Member Role/Relationship Status Dates [facility] Primary care physician Active Start : October 24, 2024 Dr. Omer Wray MD Attending physician Active Start: October 24, 2024 Team Status: Inactive Member Role/Relationship Status Dates Evelyn Deleon SENIOR ARCHITECT/DESIGN MANAGER, SENIOR ARCHITECT/DESIGN MANAGER-C Attending physician Active Start: October 24, 2024 End: October 24, 2024 vEelyn Deleon SENIOR ARCHITECT/DESIGN MANAGER, SENIOR ARCHITECT/DESIGN MANAGER-C Referring Provider Active S tart: October 24, 2024 End: October 24, 2024 [facility] Primary care physician Active Start : October 24, 2024 End: October 24, 2024 Team Status: Inactive Member Role/Relationship Status Dates Dr. Omer Wray MD Attending physician Active Start: December 19, 2024 End: December 19, 2024 Dr. Omer Wray MD Referring Provider Active S tart: December 19, 2024 End: December 19, 2024 Team Status: Inactive Member Role/Relationship Status Dates [facility] Primary care physician Active Start : January 13, 2025 End: January 13, 2025 [facility] Referring Provider Active Start: Se ptember 2024 End: January 13, 2025 Jolene Larkin Attending physician Active Start: January 13, 2025 End: January 13, 2025 Team Status: Inactive Member Role/Relationship Status Dates [facility] Primary care physician Active Start : January 13, 2025 End: January 13, 2025 [facility] Referring Provider Active Start: Se ptember 2024 End: January 13, 2025 Evelyn Deleon SENIOR ARCHITECT/DESIGN MANAGER, SENIOR ARCHITECT/DESIGN MANAGER-C Attending physician Active Start: January 13, 2025 End: January 13, 2025 Team Status: Inactive Member Role/Relationship Status Dates [facility] care physician Active Start : January 14, 2025 End: January 14, 2025 Dr. Omer Wray MD Attending physician Active Start: January 14, 2025 End: January 14, 2025 Team Status: Inactive Member Role/Relationship Status Dates [facility] physician Active Start : January 18, 2025 End: January 18, 2025 Dr. Omer Wray MD Attending physician Active Start: January 18, 2025 End: January 18, 2025 Source Comments (unrecognize d section and content) In the event this informatio n is protected by the Federal Confidentiality of Alcohol and Drug Abuse Patient Records regulations: The Federal rules restrict any use of the information to criminally investigate or prosecute any alcohol or drug abuse patient.[facility] the event this information is protected by the Federal Confidentiality of Alcohol and Drug Abuse Patient Records regulations: The Federal rules restrict any use of the information to criminally investigate or prosecute any alcohol or drug abuse patient.[facility] Center[facility] the event this information is protected by the Federal Confidentiality of Alcohol and Drug Abuse Patient Records regulations: The Federal rules restrict any use of the information to criminally investigate or prosecute any alcohol or drug abuse patient.[facility] Center[facility] the event this information is protected by the Federal Confidentiality of Alcohol and Drug Abuse Patient Records regulations: The Federal rules restrict any use of the information to criminally investigate or prosecute any alcohol or drug abuse patient.[facility] Center[facility] the event this information is protected by the Federal Confidentiality of Alcohol and Drug Abuse Patient Records regulations: The Federal rules restrict any use of the information to criminally investigate or prosecute any alcohol or drug abuse patient.[facility] the event this information is protected by the Federal Confidentiality of Alcohol and Drug Abuse Patient Records regulations: The Federal rules restrict any use of the information to criminally investigate or prosecute any alcohol or drug abuse patient.[facility] Center[facility] the event this information is protected by the Federal Confidentiality of Alcohol and Drug Abuse Patient Records regulations: The Federal rules restrict any use of the information to criminally investigate or prosecute any alcohol or drug abuse patient.[facility] Center[facility] the event this information is protected by the Federal Confidentiality of Alcohol and Drug Abuse Patient Records regulations: The Federal rules restrict any use of the information to criminally investigate or prosecute any alcohol or drug abuse patient.[facility] Center[facility] the event this information is protected by the Federal Confidentiality of Alcohol and Drug Abuse Patient Records regulations: The Federal rules restrict any use of the information to criminally investigate or prosecute any alcohol or drug abuse patient.[facility] Center[facility] the event this information is protected by the Federal Confidentiality of Alcohol and Drug Abuse Patient Records regulations: The Federal rules restrict any use of the information to criminally investigate or prosecute any alcohol or drug abuse patient.[facility] the event this information is protected by the Federal Confidentiality of Alcohol and Drug Abuse Patient Records regulations: The Federal rules restrict any use of the information to criminally investigate or prosecute any alcohol or drug abuse patient.[facility] CenterIn the event this information is protected by the Federal Confidentiality of Alcohol and Drug Abuse Patient Records regulations: The Federal rules restrict any use of the information to criminally investigate or prosecute any alcohol or drug abuse patient.[facility] CenterIn the event this information is protected by the Federal Confidentiality of Alcohol and Drug Abuse Patient Records regulations: The Federal rules restrict any use of the information to criminally investigate or prosecute any alcohol or drug abuse patient.[facility] CenterIn the event this information is protected by the Federal Confidentiality of Alcohol and Drug Abuse Patient Records regulations: The Federal rules restrict any use of the information to criminally investigate or prosecute any alcohol or drug abuse patient.[facility] CenterIn the event this information is protected by the Federal Confidentiality of Alcohol and Drug Abuse Patient Records regulations: The Federal rules restrict any use of the information to criminally investigate or prosecute any alcohol or drug abuse patient.[facility] CenterIn the event this information is protected by the Federal Confidentiality of Alcohol and Drug Abuse Patient Records regulations: The Federal rules restrict any use of the information to criminally investigate or prosecute any alcohol or drug abuse patient.[facility] CenterIn the event this information is protected by the Federal Confidentiality of Alcohol and Drug Abuse Patient Records regulations: The Federal rules restrict any use of the information to criminally investigate or prosecute any alcohol or drug abuse patient.[facility] CenterIn the event this information is protected by the Federal Confidentiality of Alcohol and Drug Abuse Patient Records regulations: The Federal rules restrict any use of the information to criminally investigate or prosecute any alcohol or drug abuse patient.[facility] CenterIn the event this information is protected by the Federal Confidentiality of Alcohol and Drug Abuse Patient Records regulations: The Federal rules restrict any use of the information to criminally investigate or prosecute any alcohol or drug abuse patient.[facility] Reason for Visit (unrecogniz ed section and content) Reason Comments Referral Information Pre-Op CTHO Consult Cardiac Preop Checklist Reason Comments Spirometry Specialty Diagnoses / Procedures Referred By Contac t Referred To Contact [facility] Diagnoses Disorder of artery or arteriole (HCC) Pre-operative cardiovascular examination Atrial fibrillation, unspecified type (HCC) Mitral valve disorder Procedures LUNG DIFFUSION CAPACITY (DLCO) DIFFUSING CAPACITY Phillip Diamond MD [address] [place] [address] [facility] [place] [address] [place] [address] Referral ID Status Reason Start Date Expiration Date V isits Requested Visits Authorized [id number] Closed Auto-Generate d Referral 12/08/2023 01/06/2025 1 1 Specialty Diagnoses / Procedures Referred By Contac t Referred To Contact [facility] Diagnoses Disorder of artery or arteriole (HCC) Pre-operative cardiovascular examination Atrial fibrillation, unspecified type (HCC) Mitral valve disorder Procedures SPIROMETRY BASELINE ONLY SPMTRY W/VC EXPIRATORY ABELARDO W/WO MXML VOL VNTJ Phillip Diamond MD [address] [place] [address] [place] [address] Referral ID Status Reason Start Date Expiration Date V isits Requested Visits Authorized [id number] Closed Auto-Generate d Referral 12/08/2023 01/06/2025 1 1 Specialty Diagnoses / Procedures Referred By Contac t Referred To Contact Cardiology Diagnoses Disorder of artery or arteriole (HCC) Pre-operative cardiovascular examination Atrial fibrillation, unspecified type (HCC) Mitral valve disorder Procedures CONSULT TO CARDIOLOGY OFFICE/[facility] MDM 60 MINUTES Phillip Diamond MD [facility] [place] [address] Referral ID Status Reason Start Date Expiration Date V isits Requested Visits Authorized [id number] Closed PCP Requested Referral 12/08/2023 12/07/2024 1 [...] MTRL W/WO CNTRST IMGES Phillip Diamond MD [address] [place] [address] [facility] [place] [address] Referral ID Status Reason Start Date Expiration Date V isits Requested Visits Authorized [id number] Closed Auto-Generate d Referral 12/08/2023 01/06/2025 1 1 Reason Comments Radio Main J1 Specialty Diagnoses / Procedures Referred By Contact Referred To Contact Anesthesiology / CARDIAC SURGERY Diagnoses MVr +/- MAZE ?[facility] 01/22 AMG Procedures PRE OP Phillip Diamond MD [facility] [place] [address] [facility] [address] [place] [address] Referral ID Status Reason Start Date Expiration Date Visits Re quested Visits Authorized [id number] Closed 01/22/2024 04/23/2024 1 1 Reason Comments Patient Education Specialty Diagnoses / Procedures Referred By Contac t Referred To Contact Cardiac Surg Diagnoses Disorder of artery or arteriole (HCC) Pre-operative cardiovascular examination Atrial fibrillation, unspecified type (HCC) Mitral valve disorder Procedures CARDIOTHORACIC PREOP EVALUATION OFFICE/OUTPATIENT [facility] 60 MINUTES Phillip Diamond MD [address] [place] [address] Referral ID Status Reason Start Date Expiration Date V isits Requested Visits Authorized [id number] Closed PCP Requested Referral 12/08/2023 12/07/2024 1 1 Specialty Diagnoses / Procedures Referred By Dwayne rush Referred To Contact [facility]MITT[facility] Diagnoses Disorder of [...] AND BYPASS FULL MAZE W/ CARDIOPULMONARY BYPASS [facility] [address] [place] [address] Referral ID Status Reason Start Date Expiration Date Visits Re quested Visits Authorized [id number] 1 1 Reason Comments Follow Up Phone Call RC follow up call phillip flowers clear. Reason Comments Post Op Reason Comments Patient Update Specialty Diagnoses / Procedures Referred By Dwayne rush Referred To Contact Radiology Diagnoses Dyspnea, unspecified type Procedures XR CHEST PA+LAT 2 VIEWS Chelsie Nieves, [employer] [address] [place] [phone] [facility] [address] [place] [address] [place] [address] Referral ID Status Reason Start Date Expiration Date Visits Re quested Visits Authorized [id number] Closed 07/10/2023 07/09/2024 1 1 Reason Comments Other Annual follow up, mo dication refills Denies uti symptoms, denies worsening or new urinary concerns Goals (unrecognized section and content) Goals may be documented in a n alternate sectionGoals may be documented in an alternate sectionGoals may be documented in an alternate sectionGoals may be documented in an alternate section No Information AvailableGoals may be documented in an alternate sectionGoals may be documented in an alternate sectionGoals may be documented in an alternate sectionGoals may be documented in an alternate sectionGoals may be documented in an alternate section FOR RECORDS PERTAINING TO PATIENTS WHO ARE [...] BE BASED ON THE PRIMARY CLINICAL RECORDS. [facility] provides no warranty or guarantee of the accuracy or completeness of information in this document.
[2025-01-25 11:48] LABS: Anion Gap 11 (5-15); BUN 16 mg/dL (4-19); BUN/Creat Ratio 17.2 RATIO (10-20); Calcium,Total 9.6 mg/dL (7.6-11.0); Carbon Dioxide 25.2 mmol/L (21.0-32.0); Chloride 108 mmol/L (98-108); Glucose 101 mg/dL (70-99); Potassium 4.2 mmol/L (3.3-5.1)
[2025-01-25 11:54] LABS: Pro- Brain NATRIURETIC PEPTIDE 420 pg/mL (<=900); Troponin T High Sensitivity 52 ng/L (<=22)
--- NOTE | 2025-01-25 13:23 | HP.PCM.HOS_ITS ---
HPI - General General Date of Admission: 01/25/25 Date of Service: 01/25/25 Chief Complaint: SOB HPI Narrative JANELLE QUIÑONES, is a 69-year-old male with a history of asthma, A-fib on Xarelto, pacemaker placement, mitral and tricuspid valve replacement, Maze procedure, hypertension, JOSÉ MIGUEL who presented to [facility] ED 01/25/25 for several days of increased shortness of breath and nonproductive cough. Denies any leg swelling and is afebrile. No chest pain. In the ED temp 97.8, heart rate 59, blood pressure 155/69, respiratory rate initially 30 with pulse ox 96% on room air but decreased to 18, CBC with white count 6.5 and hemoglobin 13.1, BMP only notable for glucose of 101. Chest x-ray with cardiomegaly and mild vascular congestion, proBNP of 420, troponin of 52. Patient given steroids and nebs, he was also given a dose of Lasix, hospitalist contacted for admission due to his shortness of breath and respiratory distress. Patient evaluated at bedside. Symptoms have been present over the past 2 to 3 days and presented somewhat suddenly with wheezing and increased shortness of breath, has had a nonproductive cough since last night. No chest pain or fevers, no bowel or bladder changes. Little bit of nasal congestion now that nasal cannula is in place but no sore throat. also has a slight cough but no shortness of breath. He does feel little bit better after breathing treatments and steroids but still diffusely wheezing with shortness of breath. Patient denies any lower extremity swelling. [facility] Medical History History of pacemaker Wears hearing aid Wears glasses PTSD (post-traumatic stress disorder) Anxiety Arthritis Vertigo Former smoker CPAP (continuous positive airway pressure) dependence History of pain when walking History of stress test Hypertension History of echocardiogram Cardiology follow-up encounter History of atrial fibrillation Acute posterior anal fissure Hemorrhoids, internal, with bleeding Paroxysmal atrial fibrillation Secondary pulmonary arterial hypertension Essential (primary) hypertension Chronic diastolic (congestive) heart failure Asthma Sick sinus syndrome Atypical atrial flutter Bradycardia Morbid obesity with BMI of 40.0-44.9, adult Home Medications ?Medication ?Instructions ?Recorded ?Last Taken ?Type albuterol sulfate 90 mcg/actuation 2 puff inhalation Q 6H PRN PRN 07/21/17 07/18/17 History aerosol inhaler Wheezing/SOB lisinopril 20 mg tablet 20 mg PO DAILY 05/23/1810/24 History tadalafil 5 mg tablet 5 mg PO DAILY 12/19/2211/18 History cholecalciferol (vitamin D3) 50 50 mcg PO DAILY Unknown History mcg (2,000 unit) capsule eplerenone 25 mg tablet (Inspra) 12.5 mg (1/2 x 25 mg) PO DAILY #30 11/13/23 Unknown Rx tabs acetaminophen 325 mg capsule 325 mg PO ONCE PRN fever or pain 02/14/24 Unknown History diclofenac sodium 1 % topical gel 2 g topical ONCE PRN Arthritis Pain 02/14/24 Unknown History (Voltaren Arthritis Pain) empagliflozin 25 mg tablet 12.5 mg PO QAM 02/14/24 Unk nown History potassium gluconate 595 mg (99 mg) 595 mg PO QDAY 01/23 12/15 Unknown History tablet metoprolol succinate 50 mg 50 mg PO QDAY #90 tabs 02/23 Unknown Rx tablet,extended release 24 hr amoxicillin 500 mg capsule 2,000 mg PO ONCE PRN . 08/23 12/16 Unknown History rivaroxaban 20 mg tablet 20 mg PO QDAY 09/18/24 Unkno wn History furosemide 20 mg tablet 20 mg PO QAM 01/13/25 Unknow n History Allergy/AdvReac Type Severity Reaction Status Date / Time Environmental Allergies: Allergy wheezing, Verified 01/25/25 10:47 Uncoded (hay fever) cough Family History Mother Diabetes Hypertension Father Cancer prostate Other CVA (cerebral vascular accident) Surgical History History of open heart surgery S/P hernia repair S/P total knee replacement (08/08/23) History of umbilical hernia repair Hx of laparoscopy Status post bilateral hernia repair History of colonoscopy (11/25/19) History of hemorrhoidectomy History of left heart catheterization (07/21/17) Presence of permanent cardiac pacemaker (12/01/17) History of cardioversion (06/11/18) History of cardiac radiofrequency ablation (08/24/18) Social History household members: spouse Smoking Status: Former smoker how long ago did patient quit smokin alcohol intake: current alcohol intake frequency: holidays/special occasions only substance use type: does not use caffeine: Yes Type: carbonated beverages Number of servings: 5 and coffee ROS ROS Narrative General: Denies fever/chills HENT slight headache, denies sore throat EYES: Denies changes in vision Resp: D dry cough, increased shortness of breath and wheezing Cardiac: Denies chest pain GI: Denies abdominal pain, denies changes in bowel, denies nausea/vomiting : Denies changes in urination Extremity: Denies swelling MSK: Denies weakness Neuro: Denies any numbness/tingling Heme: Denies any bleeding or bruising Skin: Denies rashes Psychiatric: No complaints voiced Vital Signs Vital Signs Vital Signs: 01/25/25 10:47 01/25/25 11:00 01/25/25 11:00 Temperature 97.8 F Temperature Source Temporal Pulse Rate 59 L 62 Respiratory Rate 30 H 18 Respiratory Pattern Tachypnea Blood Pressure 155/69 H Blood Pressure Mean 97 Pulse Ox 96 94 Oxygen Delivery Method Room Air Nasal Cannula Oxygen Flow Rate (L/min) 2 01/25/25 11:28 01/25/25 12:00 01/25/25 13:00 Temperature Temperature Source Pulse Rate 60 60 Respiratory Rate 18 15 Respiratory Pattern Blood Pressure 110/50 L 139/66 H Blood Pressure Mean 70 90 Pulse Ox 95 97 Oxygen Delivery Method Nasal Cannula Room Air Oxygen Flow Rate (L/min) Physical Exam Narrative General: Alert, oriented, increased work of breathing HEENT: Atraumatic, normocephalic Eyes: Anicteric, normal conjunctiva, extraocular movements grossly intact Neck: Supple Respiratory: Poor airflow but diffuse wheezes and increased respiratory effort cardiovascular: Regular rate and rhythm GI: Nontender, protuberant Extremities: No pitting edema in extremities Musculoskeletal: Moving all extremities Neuro: No overt focal neurological deficits Skin: No rashes appreciated Psych: Cooperative Results Lab / Micro Data 01/25/25 11:06 01/25/25 11:06 Labs: Laboratory Results - last 24 hr 01/25/25 11:06: WBC 6.5, RBC 4.77, Hgb 13.1, Hct 41.2, MCV 86.4, MCH 27.5, MCHC 31.8 L, RDW Std Deviation 45.3 H, RDW Coeff of Mar 14.2, Plt Count 204, MPV 10.2, Immature Gran % (Auto) 0.200, Neut % (Auto) 59.5, Lymph % (Auto) 19.7, M cecy % (Auto) 12.1 H, Eos % (Auto) 7.3 H, Baso % (Auto) 1.2 H, Absolute Neuts (auto) 3.9, Absolute Lymphs (auto) 1.27, Nucleated RBC % 0, Sodium 144, Potassium 4.2, Chloride 108, Carbon Dioxide 25.2, Anion Gap 11, BUN 16, Creatinine 0.96, Est GFR (MDRD) Non-Af 87, BUN/Creatinine Ratio 17.2, Glucose 101 H, Calcium 9.6, Troponin T High Sens 52 H, NT pro BNP II 420 Micro: Microbiology 01/25/25 11:20 Mucosa - Nose SARS-CoV-2, Influenza & RSV (PCR) - Final Rhythm Strip Rhythm Strip: Paced Rate: 60 Ectopy: None Imaging Radiology Impression Chest X-Ray 01/25/25 10:54 IMPRESSION: Cardiomegaly with mild vascular congestion. Reading Location: [facility] [place] Assessment & Plan Assessment/Plan (1) Asthma exacerbation: PLAN: Plan #Acute exacerbation of asthma -Admit to floor, continuous O2 monitoring -Chest x-ray: No acute infiltrate, query mild vascular congestion -COVID ordered, obtain respiratory panel, sputum culture if able -O2 in place, wean as tolerated -IV methylprednisone -Scheduled DuoNebs -Albuterol prn -Antibiotics: Not indicated -Incentive spirometer -Mucinex -There was a question of if this was fluid overload, patient's BNP only 420 which makes heart failure unlikely and is actually lower than it was 5 months ago, no peripheral edema, chest x-ray queried mild vascular congestion but patient still diffusely wheezing and symptoms seem consistent with asthma exacerbation - Recent echocardiogram 3 months ago with EF of 60% and moderate concentric left ventricular hypertrophy, PASP 42 mmHg -Patient received one-time dose of IV Lasix in the ED -Will monitor daily weights and I's and O's - Continue home medications # Elevated troponin - Possibly secondary to respiratory distress as he denies any chest pain - Did have heart cath October 2023 with essentially angiographically normal coronary arteries # History of mitral and tricuspid valve replacements/permanent pacemaker - Following on an outpatient basis - Patient is scheduled this week to get pacemaker battery recharged #Paroxysmal Atrial Fibrillation -Rate control: Will resume home rate control once med reconciliation available -Anticoagulation: Will continue home Xarelto #JOSÉ MIGUEL -Continue home CPAP if able, patient reports compliance #DVT ppx: Already on full dose anticoagulation Juana Rodriguez MD Charges/Coding Visit Charges Inpatient E&M: 41276 Init Hosp L2
[2025-01-25 14:01] LABS: Troponin T High Sens 2 HR 50 ng/L (<=22)
--- OUTSIDE RECORDS SUMMARY | 2025-01-25 14:36 | XMS RPT_ITS | CCD ---
Author Organization [facility] CliniSymt Care Team Providers Care 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 Name Role Phone Anabelle Ervin Unavailable Radha, [...] Care Unavailable Dr. Asad Mcdonough Emergency Provider [phone] [place] Primary Care Provider UnavailDr. Jerardo Lozoya Attending Provider Dr. Jerardo Millan Other Provider Dr. Jerardo Millan Admit Provider Dr. Jauna Rodriguez Other Provider KEVEN Neri Attending Provider Dr. Juana Rodriguez Attending Provider Dr. Asad Mcdonough Emergency Provider [place] Primary Care Provider UnavailDr. Jerardo Lozoya Attending Provider Dr. Jerardo Millan Other Provider Dr. Jerardo Millan Admit Provider Dr. Juana Rodriguez Other Provider KEVEN Neri Attending Provider Dr. Juana Rodriguez Attending Provider Dr. Jerardo Millan Referring Provider [facility] Doctor, Out of Primary Care Provider Kyung amos [facility] Doctor, Out of Referring Provider Unavailab Dr. [...] S Primary Care Unavailable GILLINOV, A TUNDE Attending Unavailable GILLINOV, A TUNDE Admitting Unavailable GILLINOV, A TUNDE Referring Unavailable NILS, OMER S Primary Care Unavailable Phillip DIAMOND Referring Unavailable NILS, OMER S Primary Care Unavailable TAVODAILY JASONUB Referring Unavailable NILS, OMER S Primary Care Unavailable Nils UGALDE, Dr. Tello Attending Provider [phone] Nils UGALDE, Dr. Tello Referring Provider [phone] Marlene ROMEO, Dr. Foote Attending Provider Marlene ROMEO, Dr. Foote [facility] [place] [facility] [place] [facility]abl [facility] [place] [facility]abl [facility] [place] Referring Provider Unavailable Roof FACTORY MACHINE COMPUTER OPERATOR-C, Evelyn H Attending Provider [phone] Roof FACTORY MACHINE COMPUTER OPERATOR-C, Evelyn H Referring Provider [phone] Nils UGALDE, Dr. Tello Attending Provider [phone] Dr. Omer Wray MD Referring Provider [phone] Denny Cifuentes MD Unavailable DENNY CIFUENTES Attending Unavailable NILS, MOER S Primary Care Unavailable Brittany Bundy MD Unavailable Luis Mayorga MD Unavailable Ann Lam [facility] [place] [facility] Provider Unavailabl e Nils, [place] Referring Unavailable Nils, Omer Attending [facility] Unavailable Roof FACTORY MACHINE COMPUTER OPERATOR, Evelyn H Attending [facility] Referring [facility] Unavailable Nils, Omer Attending Unavailable Nils, Omer Referring [facility] Unavailable Roof FACTORY MACHINE COMPUTER OPERATOR, Evelyn H Attending [facility] Referring Un[facility] Unavailable Nils, Omer Attending [facility] Unavailable [place]ils, [place] Referring [facility] Unavailable Qamar Rosario Attending [facility] Unavailable Qamar Rosario Attending Unavailable Roof FACTORY MACHINE COMPUTER OPERATOR, Evelyn H Attending Unavailable Roof FACTORY MACHINE COMPUTER OPERATOR, Evelyn H Referring [facility] Unavailable Nils, Omer Attending [facility] Unavailable Jolene Larkin Attending [facility] Referring [facility] Unavailable Nils, Omer Attending Unavailable Nils, [place] Referring [facility] Unavailable Nils, [place] Attending Unavailable Roof FACTORY MACHINE COMPUTER OPERATOR, Evelyn H Attending [facility] Referring [facility] Unavailable Roof FACTORY MACHINE COMPUTER OPERATOR, Evelyn H Attending Unavailable Roof FACTORY MACHINE COMPUTER OPERATOR, Evelyn H Referring [facility] Unavailable Roof FACTORY MACHINE COMPUTER OPERATOR, Evelyn H Referring Unavailable Roof FACTORY MACHINE COMPUTER OPERATOR, Evelyn H Attending [facility] Unavailable Roof FACTORY MACHINE COMPUTER OPERATOR, Evelyn H Referring Unavailable Roof FACTORY MACHINE COMPUTER OPERATOR, Evelyn H Attending [facility] Unavailable Roof FACTORY MACHINE COMPUTER OPERATOR, Evelyn H Attending Unavailable Roof FACTORY MACHINE COMPUTER OPERATOR, Evelyn H Referring [facility] Unavailable Nils, [place] Attending Unavailable Nils, Omer Referring [facility] Unavailable Nils, [place] Attending Unavailable Nils, Omer Referring [facility] Unavailable Nils, Omer Attending Unavailable Nils, Omer Referring Unavailable Nils, Omer Referring Unavailable Nils, Omer Attending [facility] Unavailable Nils, [place] Attending Unavailable Nils, [place] Referring [facility] Unavailable Nils, Omer Referring Unavailable Nils, Omer Attending [facility] Unavailable Roof FACTORY MACHINE COMPUTER OPERATOR, Evelyn H Attending [facility] Referring [facility] Unavailable Roof FACTORY MACHINE COMPUTER OPERATOR, Evelyn H Attending [facility] Referring [facility] Physician Unavailab Abdiel UGALDE, Dr. Tello Attending Physician Roof FACTORY MACHINE COMPUTER OPERATOR-C, Evelyn Hernandez Attending Physician Roof FACTORY MACHINE COMPUTER OPERATOR-C, Evelyn H Referring Provider [facility] [place] Primary Care Physician UnavailDr. Omer Ramos MD Referring Provider [facility] [place] Referring Provider Unavailable Jolene Larkin Attending Physician Unavailable Allergies Allergy Classification Reported Allergen(s) Allergy Type Date of Onset Reaction(s) Facility (18 sources) hydroCHLOROthiazide; Translations: [HYDROCHLOROTHIAZIDE] Drug Allergy 022 Other: See Comments [facility] (18 sources) Pollen; Translations: [POLLEN EXTRACTS] Drug Allergy 024 Itching [facility] (18 sources) Influenza Virus Vaccines; Translations: [INFLUENZA VIRUS VACCINES] Drug Allergy Other: See Comments [facility] (2 sources) hydroCHLOROthiazide Drug Allergy Other [facility] (2 sources) Influenza Vaccines Drug Allergy Other [facility] (2 sources) redtop grass pollen extract Drug Allergy Itching [facility] (2 sources) sildenafil Drug Allergy [facility] (1 source) Allergic rhinitis due to pollen Allergy to substance (disorder) [facility] (1 source) Environmental Allergies: Uncoded; Translations: [Environmental Allergies: Uncoded] Propensity to adverse reactions (disorder) [facility] Repository Medications Current Medications Medication Drug Class(es) [...] 90 Mcg/inh as needed ALBUTEROL SULFATE NEBU [id number] Jen Page take 2 puff(s) by in halation three times daily albuterol sulfate HFA 90 mcg/actuation aerosol inhaler Inhale 2 puff using inhaler three times a day active Ana [facility] [facility] take 2 puff(s) [...] inhaler twice a day active Ana Rosa [facility] cholecalciferol 0.05 [...] Active docusate sodium 50 mg / sennosides, fdc 8.6 mg oral tablet (5 sources) Start: [...] once a day active Mary Jo Escobar [facility] eplerenone 25 mg oral tablet (20 sources) Aldosterone Antagonist Start: 11-13-2023 take 1 tablet by mouth once daily Start: 11-01-2023 eplerenone (IN SPRA) 25 mg tablet Take 12.5 mg by mouth once daily. 11/01/2023 Active take 0.5 tablet by m outh once daily eplerenone 25 mg tablet take 1/2 tablet by mouth once daily (Jardiance) active Luna Herring [facility] 12 hr [...] 2 December 20, 2022 polyethylene glycol 3350 05159 mg powder for oral solution (5 sources) [...] a day active Mary Jo Escobar LPN [facility] tadalafil 10 mg oral tablet (17 sources) [...] once a day active Ana Rosa Saba [facility] Completed/Discontinued Medications Medication Drug Class(es) Dates Sig (Normalized) Sig (Original) [id number] 97 ointment (9 sources) Start: 12-03-2019 End: 03-24-2020 [id number] 7 ointment Discontinued 0 .ROUTE .MEDSUPPLY 1 December 03, 2019 12:00am March 24, 2020 5:15pm As directed Start: 12-03-2019 End: 03-24-2020 A0-[id number] ointme nt Discontinued 0 .ROUTE .MEDSUPPLY December [...] Anti-inflammatory Drug IBUPROFEN CAPS prn IBUPROFEN CAPS [id number] Trey Duenas LORazepam 0.5 mg oral tablet (6 sources) Benzodiazepine Start: 07-12-2010 End: 11-30-2012 take 1-2 tablets by mouth once daily as needed ATIVAN 0.5 MG TABS 1-2 tablets by mouth daily as needed LORAZEPAM [id number] Jen Page mupirocin 0.02 mg/mg topical ointment [...] ALEVE 220 MG TABS PRN NAPROXEN SODIUM [id number] Omer Wray MD Aleve (diclofena c) 1 % topical gel Apply a small amount to affected area as needed for pain active Ana Rosa Saba [facility] predniSONE [...] 50 MG TABS as needed QUETIAPINE FUMARATE [id number] Trey Duenas rivaroxaban 20 mg oral tablet [...] sources) Long-term current use of anticoagulant; Translations: [superintendent terminal (current) use of anticoagulants] 03-01-2024 Episodic Other aftercare (1 source) superintendent terminal (current) use of anticoagulants; Translations: [superintendent terminal (current) use of anticoagulants] Onset: 01-14-2025 Episodic [...] 01-13-2025 Anion gap [Moles/Vol] 13 mmol/L 5-15 [facility] BUN/creatinine ratioOrdered By: Evelyn Deleon on 01-13-2025 Urea nitrogen/Creatinine [Mass ratio] 28.3 mg/mg High 10-20 [facility] Bilirubin Test strip Ql (U)O rdered By: Evelyn Deleon on 01-13-2025 Bilirubin Ql (U) Negative Negative [facility] Carbon dioxide, total [Moles /volume] in Central venous bloodOrdered By: Evelyn Deleon on 01-13-2025 CO2 [Moles/Vol] 22.3 mmol/L 21.0-32.0 [facility] Cardiology Visit Reporton Cardiology Visit Report [facility] [address] [place] [address] OFFICE VISIT Date of Service: 01/13/25 MR#: [id number] Acct: [id number] Name: TRE QUIÑONES Rep #: [id number] : 1955 Provider: JOHNNA lira Age/Sex: 69/M [place] [facility] Status: Signed HPI HPI History of [...] and flutter. He was sent to the [facility]. The more recent evaluation demonstrated areas of atrial flutter in the tricuspid annulus region. He also subsequently had a permanent pacemaker implanted after his radio frequency ablation in 2017. He had started experiencing more atrial arrhythmias once again and he was sent back to [facility]. It was felt after discussing all the options that the sotalol should be discontinued and he was started on amiodarone. He had been following up at the [facility] due to insurance issues. He had a stress test in 2020. He did have an echocardiogram performed on September 13 at the [facility] and he was recorded to have a moderately dilated left ventricle with estimated ejection fraction of 60 to 65% right ventricle with a pacemaker placed in mitral valve which was normal with severe mitral regurgitation. He had echocardiogram in October 2023 at [facility] that showed ejection fraction of 60% and moderately severe eccentric mitral valve insufficiency. Transesophageal echocardiogram on 11/21/2023 showed severe mitral valve insufficiency. Heart catheterization on 11/21/2023 showed angiographically normal coronary arteries. He was seen with [facility], Dr. Diamond in January 2024. Mitral valve [...] 1 Y FU (PPM F/U LEANN 1:30) Traffic Chief Required: No Accompanied by: Self Is patient [...] 02/14/24 History (more content not included)... Normal [facility] Chloride assayOrdered By: Xena Deleon on 01-13-2025 Chloride [Moles/Vol] 106 mmol/L 98-108 [facility] Erythrocyte distribution wid th ratioOrdered By: Evelyn Deleon on 01-13-2025 Erythrocyte distribution width (RBC) [Ratio] 14.0 % 11.6-14.6 [facility] Erythrocyte distribution wid th standard deviationOrdered By: Evelyn Deleon on 01-13-2025 Erythrocyte distribution width (RBC) [Ratio] 44.0 fl High 35.1-43.9 [facility] Glomerular filtration rate ( GFR) estimation/1.73 sq m using serum, plasma, or whole bOrdered By: Evelyn Deleon on 01-13-2025 GFR/1.73 sq M.predicted among non-blacks MDRD (S/P/Bld) [Vol rate/Area] 85 mL/min/{1.73_m2} >60 [facility] Comment on above: mL/min/1.73m2 CKD-EP I Creatinine Equation (2020) Hematocrit Auto (Bld) [Volum e fraction]Ordered By: Evelyn Deleon on 01-13-2025 Hematocrit (Bld) [Volume fraction] 41.1 % 40-54 [facility] Hemoglobin measurementOrdere d By: Evelyn Deleon on 01-13-2025 Hemoglobin (Bld) [Mass/Vol] 13.2 g/dL 13.0-16.5 [facility] International normalized rat io (INR) calculationOrdered By: Evelyn Deleon on 01-13-2025 INR Coag (Bld) [Relative time] 1.4 {INR} [facility] Ketones Test strip Ql (U)Ord ered By: Evelyn Deleon on 01-13-2025 Ketones Ql (U) Negative Negative [facility] MCV (mean corpuscular volume ) determinationOrdered By: Evelyn Deleon on 01-13-2025 MCV (RBC) [Entitic vol] 85.8 fL 80-94 [facility] Mean corpuscular hemoglobin (MCH) determinationOrdered By: Evelyn Deleon on 01-13-2025 MCH (RBC) [Entitic mass] 27.6 pg 27.0-32.0 [facility] Mean corpuscular hemoglobin concentration (MCHC) determinationOrdered By: Evelyn Deleon on 01-13-2025 MCHC (RBC) [Mass/Vol] 32.1 g/dL 32-36 [facility] Mean platelet volume determi nationOrdered By: Evelyn Deleon on 01-13-2025 Platelet mean volume (Bld) [Entitic vol] 10.7 fL 6.2-12.0 [facility] Microscopic analysis of urin e for red blood cells (RBC)Ordered By: Evelyn Deleon on 01-13-2025 Microscopic analysis of urine for red blood cells (RBC) 0 SEEN /hpf 0-5 [facility] Mucus LM Ql (Urine sed)Order ed By: Evelyn Deleon on 01-13-2025 Mucus Ql (Urine sed) 0 SEEN /hpf [facility] Nitrite Test strip Ql (U)Ord ered By: Evelyn Deleon on 01-13-2025 Nitrite Ql (U) Negative Negative [facility] Pacemaker Checkon 01-13-2025 Pacemaker Check [facility] [address] [place] [address]. [address] [place] [address] Pacemaker Check Date of Service: 01/13/251737 MR#: [id number] Acct: [id number] Name: TRE QUIÑONES Rep #: [id number] : 1955 From: Jolene Larkin Age/Sex: 69/M [place] [facility]: Signed Billing Codes PM Device Codes: 30261 PM Dev Prog Eval, Dual Assessment and Plan Assessment and Plan (1) custodial current use of anticoagulant: Status: Acute (2) [...] Staples Signature: Date (if applicable) CC: Normal [facility] Platelet countOrdered By: Xena Deleon on 01-13-2025 Platelets (Bld) [#/Vol] 221 10*3/uL 150-450 [facility] Potassium measurement (mass/ volume)Ordered By: Evelyn Deleon on 01-13-2025 Potassium (Unsp spec) [Mass/Vol] 4.3 mmol/L 3.3-5.1 [facility] Protein Test strip Ql (U)Ord ered By: Evelyn Deleon on 01-13-2025 Protein Ql (U) 15 mg/dl High Negative [facility] Prothrombin timeOrdered By: Evelyn Deleon on 01-13-2025 PT Coag (PPP) [Time] 17.9 s High 11.7-14.9 [facility] RBC Auto (Bld) [#/Vol]Ordere d By: Evelyn Deleon on 01-13-2025 RBC (Bld) [#/Vol] 4.79 10*6/uL 4.6-6.2 [facility] Serum creatinine measurement (mass/volume)Ordered By: Evelyn Deleon on 01-13-2025 Creatinine [Mass/Vol] 0.97 mg/dL 0.70-1.20 [facility] Serum glucose measurement (m ass/volume)Ordered By: Evelyn Deleon on 01-13-2025 Glucose [Mass/Vol] 105 mg/dL High 70-99 [facility] Serum or plasma calcium filiberto urement (mass/volume)Ordered By: Evelyn Deleon on 01-13-2025 Calcium [Mass/Vol] 9.5 mg/dL 7.6-11.0 [facility] Serum or plasma urea nitroge n measurement (mass/volume)Ordered By: Evelyn Deleon on 01-13-2025 Urea nitrogen [Mass/Vol] 28 mg/dL High 4-19 [facility] Sodium levelOrdered By: Evelyn Deleon on 01-13-2025 Sodium [Moles/Vol] 141 mmol/L 133-145 [facility] Squamous epithelial cells de tection in urine sediment by light microscopyOrdered By: Evelyn Deleon on 01-13-2025 Epithelial cells.squamous LM Ql (Urine sed) 0-5 SEEN /hpf 0-5 [facility] Urine clarityOrdered By: Ryan Deleon on 01-13-2025 Clarity (U) Clear Clear [facility] Urine color determinationOrd ered By: Evelyn Deleon on 01-13-2025 Color (U) Straw Yellow [facility] Urine glucose detectionOrder ed By: Evelyn Deleon on 01-13-2025 Glucose Ql (U) 1000 mg/dl High Normal [facility] Urine leukocyte esterase det ection by dipstickOrdered By: Evelyn Deleon on 01-13-2025 Leukocyte esterase Test strip Ql (U) Negative Negative [facility] Urine pHOrdered By: Evelyn lira on 01-13-2025 pH (U) 6.0 [pH] 5.0 - 8.0 [facility] Urine sediment bacteria coun t by microscopy (number/high power field)Ordered By: Evelyn Deleon on 01-13-2025 Bacteria LM.HPF (Urine sed) [#/Area] 0 /[HPF] None Seen [facility] Urine specific gravity measu rementOrdered By: Evelyn Deleon on 01-13-2025 Specific gravity (U) [Rel density] 1.015 1.002-1.030 [facility] Urine urobilinogen measureme ntOrdered By: Evelyn Deleon on 01-13-2025 Urobilinogen Ql (U) Normal mg/dl Normal [facility] White blood cell (WBC) count Ordered By: Evelyn Deleon on 01-13-2025 WBC (Bld) [#/Vol] 8.0 10*3/uL 4.4-11.0 [facility] White blood cell countOrdere d By: Evelyn Deleon on 01-13-2025 White blood cell count 0-5 SEEN /hpf 0-5 [facility] Relevant diagnostic tests/la boratory data Narrativeon 12-16-2024 Fall risk assessment no [facility] Work Phone: MEDS REVIEW Documentation of current medications (procedure) [email or web address]. Work Phone: MEDS REVIEWD Medications reviewed without changes [email or web address]. Work Phone: MRI HX of the right ankle o n 12/12/2024 at [facility] [email or web address]. Work Phone: XRAY HX on 11/06/2024 [employer] [facility] [employer]. Work Phone: MRI ANKLE WO IVCON RTon [...] brevis tendon. 2. Mild distal Achilles tendinosis. Collection Systems Technician: CHRISTOFER Transcribe Date/Time: Dec 16 2024 10:18A Dictated by : VALERIE HAM MD This examination was interpreted and the report reviewed and electronically signed by: VALERIE HAM MD on Dec 16 2024 10:25AM EST [id number] Normal [facility] Office Visiton 11-01-2024 Follow-up visit [id number] Tre Quiñones 1955 M Date Provider Department Center 11/01/2024 [id number] CIFUENTES [facility] URO None No family history on file Level of Service:50820 [place] OFFICE/OUTPATIENT ESTABLISHED MOD MDM 30 MIN Reason for Visit and Comments: Other [0] - Annual follow up, medication refills Denies uti symptoms, denies worsening or new urinary concerns Normal [facility] Progress Noteon 11-01-2024 Progress Note Denny [...] [3] No family history on file. Normal [facility] Echo Complete W/ Contraston 10-24-2024 Echo Complete W/ Contrast [facility] [address] [place] [address] Echo Complete W/ Contrast 10/24/24 0555 MR#: [id number] Acct: [id number] Name: TRE QUIÑONES Rep #: [id number] : 1955 69 From: Omer Wray MD Attending Dr: TALITA ThorntonC Status: REG CLI Ordering Dr: Evelyn Deleon FACTORY MACHINE COMPUTER OPERATOR FACTORY MACHINE COMPUTER OPERATOR-C Date: 10/24/24 Location: [facility] Sex: M C Admitted: Reason For [...] mmHg. Ordering Physician: Evelyn Deleon Referring Physician: [employer] Performed By: Sunshine Esquivel RDCS, RVT 10/24/24 1231 Date Omer Wray MD CC: FACTORY MACHINE COMPUTER OPERATOR-C Evelyn Deleon; [facility] Date Dictated: 10/24/24554 Date Transcribed: 10/24/24 123 Collection Systems Technician: Signed Normal [facility] Echocardiogram study reportO rdered By: Omer Wray on 10-24-2024 Study report [facility] [address] [place] [address] Echo Complete W/ Contrast 10/24/24554 MR#: [id number] Acct: [id number] Name: TRE QUIÑONES Rep #:[id number] : 1955 69 From: Omer Kitchen Attending Dr: JOHNNA Thornton Sta tus: REG CLI Ordering Dr: Evelyn Deleon NP Date: 10/24/24 Location: [facility] Sex: M C Admitted: Reason For [...] mmHg. Ordering Physician: Evelyn Deleon Referring Physician: [employer] Performed By: Sunshine Esquivel, JUAN, RVT 10/24/24 1231 Date _ Omer Wray MD CC: JOHNNA Deleon; [facility] ~ Date Dictated: 10/24/24 0555 Date Transcribed: 10/24/24 1231 Collection Systems Technician: Signed [facility] Work Phone: 36on 10-07-2024 36 TE. Pt last OV 10/15/21, requesting refill Cialis. Appt scheduled 11/01 @ [address] [place] [address]. Pt confirms d/t/l. Normal [facility] Anion gap in Serum or Plasma Ordered By: Evelyn Deleon on 09-18-2024 Anion gap [Moles/Vol] 10 mmol/L - [facility] BUN/creatinine ratioOrdered By: Evelyn Deleon on 09-18-2024 Urea nitrogen/Creatinine [Mass ratio] 28.2 mg/mg High 02-10 [facility] Basic Metabolic Profile (BMP )on 09-18-2024 BUN/CRE 28.2 RATIO High 02-10 [facility] Comment on above: Performed By: #### L 500.2500, L503.7505 #### [facility] [address] [place], [address] Calcium [Mass/Vol] 9.4 mg/dL Normal 7.6-11.0 [facility] Comment on above: Performed By: #### L 500.2500, L503.7505 #### [facility] [address] [place], [address] Chloride [Moles/Vol] 107 mmol/L Normal 98-108 [facility] Comment on above: Performed By: #### L 500.2500, L503.7505 #### [facility] [address] [place], [address] CO2 [Moles/Vol] 24.3 mmol/L Normal 21.0-32.0 [facility] Comment on above: Performed By: #### L 500.2500, L503.7505 #### [facility] [address] [place], [address] Creatinine [Mass/Vol] 0.92 mg/dL Normal 0.70-1.20 [facility] Comment on above: Performed By: #### L 500.2500, L503.7505 #### [facility] [address] [place], [address] GAP 10 Normal 5-15 [facility] Comment on above: Performed By: #### L 500.2500, L503.7505 #### [facility] [address] [place], [address] GFR/1.73 sq M.predicted among non-blacks MDRD (S/P/Bld) [Vol rate/Area] 91 mL/min/{1.73_m2} Normal >60 [facility] Comment on above: Result Comment: mL/m in/1.73m2 CKD-EPI Creatinine Equation (2020) Performed By: #### L 500.2500, L503.7505 #### [facility] [address] [place], [address] Glucose [Mass/Vol] 95 mg/dL Normal 70-99 [facility] Comment on above: Performed By: #### L 500.2500, L503.7505 #### [facility] [address] [place], [address] Potassium [Moles/Vol] 4.1 mmol/L Normal 3.3-5.1 [facility] Comment on above: Performed By: #### L 500.2500, L503.7505 #### [facility] [address] [place], [place], [address] Sodium [Moles/Vol] 141 mmol/L Normal 133-145 [facility] Comment on above: Performed By: #### L 500.2500, L503.7505 #### [facility] [address] [place], [address] Urea nitrogen [Mass/Vol] 26 mg/dL High 4-19 [facility] Comment on above: Performed By: #### L 500.2500, L503.7505 #### [facility] [address] [place], [address] Carbon dioxide, total [Moles /volume] in Central venous bloodOrdered By: Evelyn Deleon on 09-18-2024 CO2 [Moles/Vol] 24.3 mmol/L 21.0-32.0 [facility] Cardiology Visit Reporton Cardiology Visit Report [facility] [address] [place] [address] OFFICE VISIT Date of Service: 09/18/24 MR#: [id number] Acct: [id number] Name: TRE QUIÑONES Rep #: [id number] : 1955 Provider: JOHNNA lira Age/Sex: 69/M [place] [facility]: Signed HPI HPI History of Present [...] and flutter. He was sent to the [facility]. The more recent evaluation demonstrated areas of atrial flutter in the tricuspid annulus region. He also subsequently had a permanent pacemaker implanted after his radio frequency ablation in 2018. He had started experiencing more atrial arrhythmias once again and he was sent back to [facility]. It was felt after discussing all the options that the sotalol should be discontinued and he was started on amiodarone. He had been following up at the [facility] due to insurance issues. He had a stress test in 2020. He did have an echocardiogram performed on September 13 at the [facility] and he was recorded to have a moderately dilated left ventricle with estimated ejection fraction of 60 to 65% right ventricle with a pacemaker placed in mitral valve which was normal with severe mitral regurgitation. He had echocardiogram in October 2023 at [facility] that showed ejection fraction of 60% and moderately severe eccentric mitral valve insufficiency. Transesophageal echocardiogram on 11/21/2023 showed severe mitral valve insufficiency. Heart catheterization on 11/21/2023 showed angiographically normal coronary arteries. He was seen with [facility], Dr. Diamond in January 2024. Mitral valve [...] NIBP Intake Visit Reasons: 3 M FU Traffic Chief Required: No Is patient in pain?: No [...] Pain) empaglifloz (more content not included)... Normal [facility] Chloride assayOrdered By: Xena Deleon on 09-18-2024 Chloride [Moles/Vol] 107 mmol/L 98-108 [facility] Glomerular filtration rate ( GFR) estimation/1.73 sq m using serum, plasma, or whole bOrdered By: Evelyn Deleon on 09-18-2024 GFR/1.73 sq M.predicted among non-blacks MDRD (S/P/Bld) [Vol rate/Area] 91 mL/min/{1.73_m2} >60 [facility] Comment on above: mL/min/1.73m2 CKD-EP I Creatinine Equation (2020) L503.7505on 09-18-2024 Natriuretic peptide B (Bld) [Mass/Vol] 538 pg/mL Normal <=900 [facility] Comment on above: Result Comment: Hear t Failure Unlikely: < 300 pg/mL Heart Failure Likely < 50 Years: > 450 pg/mL 50-75 Years: > 900 pg/mL >75 Years: > 1800 pg/mL Performed By: #### L 500.2500, L503.7505 #### [facility] [place], [place], [address] Natriuretic peptide.B prohor beny N-Terminal [Mass/volume] in Serum or PlasmaOrdered By: Evelyn Deleon on 09-18-2024 Natriuretic peptide.B prohormone N-Terminal [Mass/Vol] 538 pg/mL <900 [facility] Comment on above: Heart Failure Unlike ly: < 300 pg/mLHeart Failure Likely< 50 Years: > 450 pg/mL50-75 Years: > 900 pg/mL>75 Years: > 1800 pg/mL Potassium measurement (mass/ volume)Ordered By: Evelyn Deleon on 09-18-2024 Potassium (Unsp spec) [Mass/Vol] 4.1 mmol/L 3.3-5.1 [facility] Serum creatinine measurement (mass/volume)Ordered By: Evelyn Deleon on 09-18-2024 Creatinine [Mass/Vol] 0.92 mg/dL 0.70-1.20 [facility] Serum glucose measurement (m ass/volume)Ordered By: Evelyn Deleon on 09-18-2024 Glucose [Mass/Vol] 95 mg/dL 70-99 [facility] Serum or plasma calcium filiberto urement (mass/volume)Ordered By: Evelyn Deleon on 09-18-2024 Calcium [Mass/Vol] 9.4 mg/dL 7.6-11.0 [facility] Serum or plasma urea nitroge n measurement (mass/volume)Ordered By: Evelyn Deleon on 09-18-2024 Urea nitrogen [Mass/Vol] 26 mg/dL High 4- [facility] Sodium levelOrdered By: Evelyn Deleon on 09-18-2024 Sodium [Moles/Vol] 141 mmol/L 133-145 [facility] Absolute lymphocyte countOrd ered By: Qamar Rosario on 08-13-2024 Lymphocytes Auto (Unsp spec) [#/Vol] 1.26 10*3/uL 0.83-4.51 [facility] Absolute neutrophil countOrd ered By: Qamar Rosario on 08-13-2024 Neutrophils (Bld) [#/Vol] 3.7 10*3/uL 2.0-7.7 [facility] Anion gap in Serum or Plasma Ordered By: Qamar Rosario on 08-13-2024 Anion gap [Moles/Vol] 9 mmol/L - [facility] Automated lymphocyte count a s percentage of total leukocytesOrdered By: Qamar Rosario on 08-13-2024 Lymphocytes/100 WBC Auto (Unsp spec) 20.3 % - [facility] BUN/creatinine ratioOrdered By: Qamar Rosario on 08-13-2024 Urea nitrogen/Creatinine [Mass ratio] 18.5 mg/mg 10- [facility] Basic Metabolic Profile (BMP )on 08-13-2024 BUN/CRE 18.5 RATIO Normal - [facility] Comment on above: Performed By: #### L 500.2500, L100.0100 ####[facility] [address] [place], [address] Calcium [Mass/Vol] 9.3 mg/dL Normal 7.6-11.0 [facility] Comment on above: Performed By: #### L 500.2500, L100.0100 ####[facility] [address] [place], [address] Chloride [Moles/Vol] 105 mmol/L Normal 98-108 [facility] Comment on above: Performed By: #### L 500.2500, L100.0100 ####[facility] [address] [place], [address] CO2 [Moles/Vol] 25.9 mmol/L Normal 21.0-32.0 [facility] Comment on above: Performed By: #### L 500.2500, L100.0100 ####[facility] [address] [place], [address] Creatinine [Mass/Vol] 1.05 mg/dL Normal 0.70-1.20 [facility] Comment on above: Performed By: #### L 500.2500, L100.0100 ####[facility] [address] [place], [address] ECRCL 100.31 ml/min Normal 50-250 [facility] Comment on above: Performed By: #### L 500.2500, L100.0100 ####[facility] [address] [place], [address] GAP 9 Normal 5-15 [facility] Comment on above: Performed By: #### L 500.2500, L100.0100 ####[facility] [address] [place], [address] GFR/1.73 sq M.predicted among non-blacks MDRD (S/P/Bld) [Vol rate/Area] 78 mL/min/{1.73_m2} Normal >60 [facility] Comment on above: Result Comment: mL/m in/1.73m2 CKD-EPI Creatinine Equation (2020) Performed By: #### L 500.2500, L100.0100 ####[facility] [address] [place], [address] Glucose [Mass/Vol] 125 mg/dL High 70-99 [facility] Comment on above: Performed By: #### L 500.2500, L100.0100 ####[facility] [address] [place], [address] Potassium [Moles/Vol] 4.3 mmol/L Normal 3.3-5.1 [facility] Comment on above: Performed By: #### L 500.2500, L100.0100 ####[facility] [address] [place], [address] Sodium [Moles/Vol] 140 mmol/L Normal 133-145 [facility] Comment on above: Performed By: #### L 500.2500, L100.0100 ####[facility] [address] [place], [address] Urea nitrogen [Mass/Vol] 19 mg/dL Normal 4-19 [facility] Comment on above: Performed By: #### L 500.2500, L100.0100 ####[facility] [address] [place], [address] Basophil percentageOrdered B y: Qamar Le on 08-13-2024 Basophils/100 WBC (Bld) 1.3 % High 0-1 [facility] CBC W/Diff, Automatedon 07-24 Absolute Lymph 1.26 X10 3/uL Normal 0.83-4.51 [facility] Comment on above: Performed By: #### L 500.2500, L100.0100 ####[facility] [address] [place], [address] Absolute Neut 3.7 X10 3/uL Normal 2.0-7.7 [facility] Comment on above: Performed By: #### L 500.2500, L100.0100 ####[facility] [address] [place], [address] Basophils/100 WBC (Bld) 1.3 % High 0-1 [facility] Comment on above: Performed By: #### L 500.2500, L100.0100 ####[facility] [address] [place], [address] Eosinophils/100 WBC (Bld) 6.1 % High 0-5 [facility] Comment on above: Performed By: #### L 500.2500, L100.0100 ####[facility] [address] [place], [address] Erythrocyte distribution width (RBC) [Ratio] 15.3 % High 11.6-14.6 [facility] Comment on above: Performed By: #### L 500.2500, L100.0100 ####[facility] [address] [place], [address] Hematocrit (Bld) [Volume fraction] 38.9 % Low 40-54 [facility] Comment on above: Performed By: #### L 500.2500, L100.0100 ####[facility] [address] [place], [address] Hemoglobin (Bld) [Mass/Vol] 12.3 g/dL Low 13.0-16.5 [facility] Comment on above: Performed By: #### L 500.2500, L100.0100 ####[facility] [address] [place], [address] IG% 0.600 Normal 0.0-0.9 [facility] Comment on above: Result Comment: IG% - Immature Granulocytes (promyelocytes, myelocytes and metamyelocytes) > 1% indicates that a LEFT SHIFT is Present. Performed By: #### L 500.2500, L100.0100 ####[facility] [address] [place], [address] Lymphocytes/100 WBC (Bld) 20.3 % Normal 19-41 [facility] Comment on above: Performed By: #### L 500.2500, L100.0100 ####[facility] [address] [place], [address] MCH (RBC) [Entitic mass] 26.7 pg Low 27.0-32.0 [facility] Comment on above: Performed By: #### L 500.2500, L100.0100 ####[facility] [address] [place], [address] MCHC (RBC) [Mass/Vol] 31.6 g/dL Low 32-36 [facility] Comment on above: Performed By: #### L 500.2500, L100.0100 ####[facility] [address] [place], [address] MCV (RBC) [Entitic vol] 84.6 fL Normal 80-94 [facility] Comment on above: Performed By: #### L 500.2500, L100.0100 ####[facility] [address] [place], [address] Monocytes/100 WBC (Bld) 12.1 % High 0-10 [facility] Comment on above: Performed By: #### L 500.2500, L100.0100 ####[facility] [address] [place], [address] Neutrophils/100 WBC (Bld) 59.6 % Normal 47-70 [facility] Comment on above: Performed By: #### L 500.2500, L100.0100 ####[facility] [address] [place], [address] Nucleated RBC (Bld) [#/Vol] 0 10*3/uL Normal 0-5 [facility] Comment on above: Performed By: #### L 500.2500, L100.0100 ####[facility] [address] [place], [address] Platelet mean volume (Bld) [Entitic vol] 10.7 fL Normal 6.2-12.0 [facility] Comment on above: Performed By: #### L 500.2500, L100.0100 ####[facility] [address] [place], [address] Platelets (Bld) [#/Vol] 189 10*3/uL Normal 150-450 [facility] Comment on above: Performed By: #### L 500.2500, L100.0100 ####[facility] [address] [place], [address] RBC (Bld) [#/Vol] 4.60 10*6/uL Normal 4.6-6.2 [facility] Comment on above: Performed By: #### L 500.2500, L100.0100 ####[facility] [address] [place], [address] RDW SD 46.9 fl High 35.1-43.9 [facility] Comment on above: Performed By: #### L 500.2500, L100.0100 ####[facility] [address] [place], [address] WBC (Bld) [#/Vol] 6.2 10*3/uL Normal 4.4-11.0 [facility] Comment on above: Performed By: #### L 500.2500, L100.0100 ####[facility] [address] [place], [address] Carbon dioxide, total [Moles /volume] in Central venous bloodOrdered By: Qamar Mckenzie 08-13-2024 CO2 [Moles/Vol] 25.9 mmol/L 21.0-32.0 [facility] Chest PA and Lateralon 08-13 Chest PA and Lateral [facility] Imaging Services [address] [place] [address] Chest PA and Lateral MR#: [id number] Acct: [id number] Name: TRE QUIÑONES Rep #: [id number] : 1955 M 69 From: López Rosario MD PCP: [facility] Status: REG ER Study: Chest PA and Lateral Date of Exam: 08/13/24 Exam# [id number] Ordering Dr: Qamar Rosario DO EXAM: XR [...] pneumonia cannot be excluded. Reading Location: [facility] CC: Dr. Qamar Rosario DO; [facility] Collection Systems Technician: Signed Normal [facility] Chloride assayOrdered By: Kishan Rosario on 08-13-2024 Chloride [Moles/Vol] 105 mmol/L 98-108 [facility] Emergency Department Summary on 08-13-2024 Emergency Department Summary [facility] Medical Records Department [address] [place] [address] Emergency Department Summary 08/13/24 MR#: [id number] Acct: [id number] Name: TRE QUIÑONES Rep #: [id number] : 1955 69 From: Qamar Carroll PCP: [facility] Status:DEP ER Location: ED HPI History of [...] history of diabetes. [facility] similar symptoms: [facility] History History of pacemaker Wears hearing [...] or weakness (more content not included)... Normal [facility] Eosinophil percentageOrdered By: Qamar Rosario on 08-13-2024 Eosinophils/100 WBC (Bld) 6.1 % High 0-5 [facility] Erythrocyte distribution wid th ratioOrdered By: Qamar Rosario on 08-13-2024 Erythrocyte distribution width (RBC) [Ratio] 15.3 % High 11.6-14.6 [facility] Erythrocyte distribution wid th standard deviationOrdered By: Qamar Rosario on 08-13-2024 Erythrocyte distribution width (RBC) [Ratio] 46.9 fl High 35.1-43.9 [facility] Glomerular filtration rate ( GFR) estimation/1.73 sq m using serum, plasma, or whole bOrdered By: Qamar Rosario on 08-13-2024 GFR/1.73 sq M.predicted among non-blacks MDRD (S/P/Bld) [Vol rate/Area] 78 mL/min/{1.73_m2} >60 [facility] Comment on above: mL/min/1.73m2 CKD-EP I Creatinine Equation (2020) Hematocrit Auto (Bld) [Volum e fraction]Ordered By: Qamar Rosario on 08-13-2024 Hematocrit (Bld) [Volume fraction] 38.9 % Low 40-54 [facility] Hemoglobin measurementOrdere d By: Qamar Rosario on 08-13-2024 Hemoglobin (Bld) [Mass/Vol] 12.3 g/dL Low 13.0-16.5 [facility] Immature granulocytes/100 WB C Auto (Bld)Ordered By: Qamar Rosario on 08-13-2024 Immature granulocytes/100 WBC (Bld) 0.600 % 0.0-0.9 [facility] Comment on above: IG% - Immature Granu locytes (promyelocytes, myelocytes and metamyelocytes) > 1% indicates that a LEFT SHIFT is Present. MCV (mean corpuscular volume ) determinationOrdered By: Qamar Rosario on 08-13-2024 MCV (RBC) [Entitic vol] 84.6 fL 80-94 [facility] Mean corpuscular hemoglobin (MCH) determinationOrdered By: Qamar Rosario on 08-13-2024 MCH (RBC) [Entitic mass] 26.7 pg Low 27.0-32.0 [facility] Mean corpuscular hemoglobin concentration (MCHC) determinationOrdered By: Qamar Rosario on 08-13-2024 MCHC (RBC) [Mass/Vol] 31.6 g/dL Low 32-36 [facility] Mean platelet volume determi nationOrdered By: Qamar Rosario on 08-13-2024 Platelet mean volume (Bld) [Entitic vol] 10.7 fL 6.2-12.0 [facility] Monocyte percentageOrdered B y: Qamar Rosario on 08-13-2024 Monocytes/100 WBC (Bld) 12.1 % High 0-10 [facility] Neutrophil percentageOrdered By: Qamar Rosario on 08-13-2024 Neutrophils/100 WBC (Bld) 59.6 % 47-70 [facility] Nucleated red blood cell per centageOrdered By: Qamar Rosario on 08-13-2024 Nucleated RBC/100 WBC (Bld) [Ratio] 0 % 0-5 [facility] Platelet countOrdered By: Kishan garcia Marlene on 08-13-2024 Platelets (Bld) [#/Vol] 189 10*3/uL 150-450 [facility] Potassium measurement (mass/ volume)Ordered By: Qamar Rosario on 08-13-2024 Potassium (Unsp spec) [Mass/Vol] 4.3 mmol/L 3.3-5.1 [facility] RBC Auto (Bld) [#/Vol]Ordere d By: Qamar Rosario on 08-13-2024 RBC (Bld) [#/Vol] 4.60 10*6/uL 4.6-6.2 [facility] Serum creatinine measurement (mass/volume)Ordered By: Qamar Rosario on 08-13-2024 Creatinine [Mass/Vol] 1.05 mg/dL 0.70-1.20 [facility] Serum glucose measurement (m ass/volume)Ordered By: Qamar Rosario on 08-13-2024 Glucose [Mass/Vol] 125 mg/dL High 70-99 [facility] Serum or plasma calcium filiberto urement (mass/volume)Ordered By: Qamar Rosario on 08-13-2024 Calcium [Mass/Vol] 9.3 mg/dL 7.6-11.0 [facility] Serum or plasma urea nitroge n measurement (mass/volume)Ordered By: Qamar Rosario on 08-13-2024 Urea nitrogen [Mass/Vol] 19 mg/dL 4-19 [facility] Sodium levelOrdered By: Qamar Rosario on 08-13-2024 Sodium [Moles/Vol] 140 mmol/L 133-145 [facility] White blood cell (WBC) count Ordered By: Qamar Rosario on 08-13-2024 WBC (Bld) [#/Vol] 6.2 10*3/uL 4.4-11.0 [facility] Transferrinon 05-16-2024 Transferrin [Mass/Vol] 345 mg/dL High 177-329 [facility] Comment on above: Result Comment: Perf ormed at: - [facility] [address] [id number] Slab Grinder: Ignacio Clayton PhD, Phone: [phone] Performed By: #### L 503.6075, L100.0100, L500.2500, L503.6550, L503.6150, L3400.3800 ####[facility] [address] [place], [address] Basic Metabolic Profile (BMP )on 05-15-2024 BUN/CRE 20.2 RATIO High 10-20 [facility] Comment on above: Performed By: #### L 503.6075, L100.0100, L500.2500, L503.6550, L503.6150, L3400.3800 #### [facility] [address] [place], [address] CA,Total 9.6 mg/dL Normal 8.5-10.1 [facility] Comment on above: Performed By: #### L 503.6075, L100.0100, L500.2500, L503.6550, L503.6150, L3400.3800 #### [facility] [address] [place], [address] Chloride [Moles/Vol] 104 mmol/L Normal 98-107 [facility] Comment on above: Performed By: #### L 503.6075, L100.0100, L500.2500, L503.6550, L503.6150, L3400.3800 #### [facility] [address] [place], [address] CO2 [Moles/Vol] 29.0 mmol/L Normal 21.0-32.0 [facility] Comment on above: Performed By: #### L 503.6075, L100.0100, L500.2500, L503.6550, L503.6150, L3400.3800 #### [facility] [address] [place], [address] Creatinine [Mass/Vol] 1.24 mg/dL Normal 0.70-1.30 [facility] Comment on above: Result Comment: The validity of the calculated GFR GFRAA in patients over 70 years has not been determined. Clinical correlation is essential. Performed By: #### L 503.6075, L100.0100, L500.2500, L503.6550, L503.6150, L3400.3800 #### [facility] [address] [place], [address] EST GFR - AA 75 mL/min Normal >60 [facility] Comment on above: Result Comment: Afri can [place] GFR Calc Performed By: #### L 503.6075, L100.0100, L500.2500, L503.6550, L503.6150, L3400.3800 #### [facility] [address] [place], [address] GAP 5 Normal 5-15 [facility] Comment on above: Performed By: #### L 503.6075, L100.0100, L500.2500, L503.6550, L503.6150, L3400.3800 #### [facility] [address] [place], [address] GFR/1.73 sq M.predicted among non-blacks MDRD (S/P/Bld) [Vol rate/Area] 62 mL/min/{1.73_m2} Normal >60 [facility] Comment on above: Result Comment: Non- GFR Calc Performed By: #### L 503.6075, L100.0100, L500.2500, L503.6550, L503.6150, L3400.3800 #### [facility] [address] [place], [address] Glucose [Mass/Vol] 96 mg/dL Normal 74-106 [facility] Comment on above: Performed By: #### L 503.6075, L100.0100, L500.2500, L503.6550, L503.6150, L3400.3800 #### [facility] [address] [place], [address] Potassium [Moles/Vol] 4.2 mmol/L Normal 3.5-5.1 [facility] Comment on above: Performed By: #### L 503.6075, L100.0100, L500.2500, L503.6550, L503.6150, L3400.3800 #### [facility] [address] [place], [address] Sodium [Moles/Vol] 138 mmol/L Normal 136-145 [facility] Comment on above: Performed By: #### L 503.6075, L100.0100, L500.2500, L503.6550, L503.6150, L3400.3800 #### [facility] [address] [place], [address] Urea nitrogen [Mass/Vol] 25 mg/dL High 7-18 [facility] Comment on above: Performed By: #### L 503.6075, L100.0100, L500.2500, L503.6550, L503.6150, L3400.3800 #### [facility] [address] [place], [address] CBC W/Diff, Automatedon 04-25 Absolute Lymph 1.89 X10 3/uL Normal 0.83-4.51 [facility] Comment on above: Performed By: #### L 503.6075, L100.0100, L500.2500, L503.6550, L503.6150, L3400.3800 #### [facility] [address] [place], [address] Absolute Neut 3.6 X10 3/uL Normal 2.0-7.7 [facility] Comment on above: Performed By: #### L 503.6075, L100.0100, L500.2500, L503.6550, L503.6150, L3400.3800 #### [facility] [address] [place], [address] Basophils/100 WBC (Bld) 1.6 % High 0-1 [facility] Comment on above: Performed By: #### L 503.6075, L100.0100, L500.2500, L503.6550, L503.6150, L3400.3800 #### [facility] [address] [place], [address] Eosinophils/100 WBC (Bld) 3.3 % Normal 0-5 [facility] Comment on above: Performed By: #### L 503.6075, L100.0100, L500.2500, L503.6550, L503.6150, L3400.3800 #### [facility] [address] [place], [address] Erythrocyte distribution width (RBC) [Ratio] 15.2 % High 11.6-14.6 [facility] Comment on above: Performed By: #### L 503.6075, L100.0100, L500.2500, L503.6550, L503.6150, L3400.3800 #### [facility] [address] [place], [address] Hematocrit (Bld) [Volume fraction] 42.9 % Normal 40-54 [facility] Comment on above: Performed By: #### L 503.6075, L100.0100, L500.2500, L503.6550, L503.6150, L3400.3800 #### [facility] [address] [place], [address] Hemoglobin (Bld) [Mass/Vol] 13.3 g/dL Normal 13.0-16.5 [facility] Comment on above: Performed By: #### L 503.6075, L100.0100, L500.2500, L503.6550, L503.6150, L3400.3800 #### [facility] [address] [place], [address] IG% 0.200 Normal 0.0-0.9 [facility] Comment on above: Result Comment: IG% - Immature Granulocytes (promyelocytes, myelocytes and metamyelocytes) > 1% indicates that a LEFT SHIFT is Present. Performed By: #### L 503.6075, L100.0100, L500.2500, L503.6550, L503.6150, L3400.3800 #### [facility] [address] [facility] [place], [address] Lymphocytes/100 WBC (Bld) 29.6 % Normal 19-41 [facility] Comment on above: Performed By: #### L 503.6075, L100.0100, L500.2500, L503.6550, L503.6150, L3400.3800 #### [facility] [address] [place], [address] MCH (RBC) [Entitic mass] 25.5 pg Low 27.0-32.0 [facility] Comment on above: Performed By: #### L 503.6075, L100.0100, L500.2500, L503.6550, L503.6150, L3400.3800 #### [facility] [address] [place], [place], [address] MCHC (RBC) [Mass/Vol] 31.0 g/dL Low 32-36 [facility] Comment on above: Performed By: #### L 503.6075, L100.0100, L500.2500, L503.6550, L503.6150, L3400.3800 #### [facility] [address] [place], [address] MCV (RBC) [Entitic vol] 82.3 fL Normal 80-94 [facility] Comment on above: Performed By: #### L 503.6075, L100.0100, L500.2500, L503.6550, L503.6150, L3400.3800 #### [facility] [address] [place], [address] Monocytes/100 WBC (Bld) 8.9 % Normal 0-10 [facility] Comment on above: Performed By: #### L 503.6075, L100.0100, L500.2500, L503.6550, L503.6150, L3400.3800 #### [facility] [address] [place], [address] Neutrophils/100 WBC (Bld) 56.4 % Normal 47-70 [facility] Comment on above: Performed By: #### L 503.6075, L100.0100, L500.2500, L503.6550, L503.6150, L3400.3800 #### [facility] [address] [place], [address] Nucleated RBC (Bld) [#/Vol] 0 10*3/uL Normal 0-5 [facility] Comment on above: Performed By: #### L 503.6075, L100.0100, L500.2500, L503.6550, L503.6150, L3400.3800 #### [facility] [address] [place], [address] Platelet mean volume (Bld) [Entitic vol] 10.8 fL Normal 6.2-12.0 [facility] Comment on above: Performed By: #### L 503.6075, L100.0100, L500.2500, L503.6550, L503.6150, L3400.3800 #### [facility] [address] [place], [address] Platelets (Bld) [#/Vol] 259 10*3/uL Normal 150-450 [facility] Comment on above: Performed By: #### L 503.6075, L100.0100, L500.2500, L503.6550, L503.6150, L3400.3800 #### [facility] [address] [place], [address] RBC (Bld) [#/Vol] 5.21 10*6/uL Normal 4.6-6.2 [facility] Comment on above: Performed By: #### L 503.6075, L100.0100, L500.2500, L503.6550, L503.6150, L3400.3800 #### [facility] [address] [place], [address] RDW SD 45.8 fl High 35.1-43.9 [facility] Comment on above: Performed By: #### L 503.6075, L100.0100, L500.2500, L503.6550, L503.6150, L3400.3800 #### [facility] [address] [place], [address] WBC (Bld) [#/Vol] 6.4 10*3/uL Normal 4.4-11.0 [facility] Comment on above: Performed By: #### L 503.6075, L100.0100, L500.2500, L503.6550, L503.6150, L3400.3800 #### [facility] [address] [place], [address] Cardiology Visit Reporton Cardiology Visit Report [facility] [address] [place] [address] OFFICE VISIT Date of Service: 05/15/24 MR#: [id number] Acct: [id number] Name: TRE QUIÑONES Rep #: [id number] : 1955 Provider: JOHNNA lira Age/Sex: 69/M [place] [facility] Status: Signed HPI HPI History of [...] and flutter. He was sent to the [facility]. The more recent evaluation demonstrated areas of atrial flutter in the tricuspid annulus region. He also subsequently had a permanent pacemaker implanted after his radio frequency ablation in 2017. He had started experiencing more atrial arrhythmias once again and he was sent back to [facility]. It was felt after discussing all the options that the sotalol should be discontinued and he was started on amiodarone. He had been following up at the [facility] due to insurance issues. He had a stress test in 2020. He did have an echocardiogram performed on September 13 at the [facility] and he was recorded to have a moderately dilated left ventricle with estimated ejection fraction of 60 to 65% right ventricle with a pacemaker placed in mitral valve which was normal with severe mitral regurgitation. He had echocardiogram in October 2023 at [facility] that showed ejection fraction of 60% and moderately severe eccentric mitral valve insufficiency. Transesophageal echocardiogram on 11/21/2023 showed severe mitral valve insufficiency. Heart catheterization on 11/21/2023 showed angiographically normal coronary arteries. He was seen with [facility], Dr. Diamond in January 2024. 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 Normal [facility] Ferritinon 05-15-2024 Ferritin [Mass/Vol] 22 ng/mL Low 26-388 [facility] Comment on above: Performed By: #### L 503.6075, L100.0100, L500.2500, L503.6550, L503.6150, L3400.3800 ####[facility] [address] [place], [address] Ironon 05-15-2024 Iron [Mass/Vol] 46 ug/dL Low 65-175 [facility] Comment on above: Performed By: #### L 503.6075, L100.0100, L500.2500, L503.6550, L503.6150, L3400.3800 ####[facility] [address] [place], [address] Iron Binding Capacity,Totalo n 05-15-2024 TIBC 416 ug/dL Normal 250-450 [facility] Comment on above: Performed By: #### L 503.6075, L100.0100, L500.2500, L503.6550, L503.6150, L3400.3800 ####[facility] [address] [place], [address] Chest PA and Lateralon 04-18 Chest PA and Lateral [facility] Imaging Services [address] [place] [address] Chest PA and Lateral MR#: [id number] Acct: [id number] Name: QUIÑONESTRE Rep #: [id number] : 1955 [place] 69 From: Vick Matthews MD PCP: [facility] Status: [facility] ER Study: Chest PA and Lateral Date of Exam: 04/18/24 Exam# [id number] Ordering Dr: Sowmya Pryor [id number] EXAM: XR CHEST, 2 VIEWS CLINICAL INDICATION: [...] at 12:45 EST , CC: RODRICK Rocha; [facility] Collection Systems Technician: Signed Normal [facility] Emergency Department Summary on 04-18-2024 Emergency Department Summary [facility] Medical Records Department [address] [place] [address] Emergency Department Summary 04/18/24 MR#: [id number] Acct: [id number] Name: TRE QUIÑONES Rep #: [id number] : 1955 69 From: Sowmya MENSAH PCP: [facility] Status:DEP ER Location: ED HPI History of [...] Xarelto, HTN, pacemaker placement, asthma, and CHF. [facility] Medical History History of pacemaker Wears hearing [...] 97 O (more content not included)... Normal [facility] M100.678on 04-18-2024 M100.678 Pending SARS-CoV-2 (COVID 19) Negative INFLUENZA A Negative INFLUENZA B Negative RSV PCR Negative Normal [facility] Comment on above: Performed By: #### M 100.678 ####[facility] [address] [place], [place], [id number] Pacemaker Checkon 03-13-2024 Pacemaker Check [facility] [address] [place], [place] [address] Pacemaker Check Date of Service: 03/13/24 1706 MR#: [id number] Acct: [id number] Name: TRE QUIÑONES Rep #: [id number] : 1955 From: Jolene Larkin Age/Sex: 69/M [place] [facility] Status: Signed Billing Codes PM Device Codes: 42586 PM Dev Prog Eval, Dual Assessment and [...] Staples Signature: Date (if applicable) CC: Normal [facility] C[facility]N [facility] B[facility],B-Type NATRIURETIC PEPTI Garrett 03-01-2024 Natriuretic peptide B (Bld) [Mass/Vol] 167.5 pg/mL High 0-100 [facility] Comment on above: Performed By: #### L 501.5200, L100.0100, L500.4050, L503.6620, L501.9520 ####[facility] [address] [place], [address] CBC W/Diff, Automatedon 11 Absolute Lymph 1.63 X10 3/uL Normal 0.83-4.51 [facility] Comment on above: Performed By: #### L 501.5200, L100.0100, L500.4050, L503.6620, L501.9520 ####[facility] [address] [place], [address] Absolute Neut 4.4 X10 3/uL Normal 2.0-7.7 [facility] Comment on above: Performed By: #### L 501.5200, L100.0100, L500.4050, L503.6620, L501.9520 ####[facility] [address] [place], [address] Basophils/100 WBC (Bld) 1.4 % High 0-1 [facility] Comment on above: Performed By: #### L 501.5200, L100.0100, L500.4050, L503.6620, L501.9520 ####[facility] [address] [place], [address] Eosinophils/100 WBC (Bld) 5.8 % High 0-5 [facility] Comment on above: Performed By: #### L 501.5200, L100.0100, L500.4050, L503.6620, L501.9520 ####[facility] [address] [place], [address] Erythrocyte distribution width (RBC) [Ratio] 14.4 % Normal 11.6-14.6 [facility] Comment on above: Performed By: #### L 501.5200, L100.0100, L500.4050, L503.6620, L501.9520 ####[facility] [address] [place], [address] Hematocrit (Bld) [Volume fraction] 33.2 % Low 40-54 [facility] Comment on above: Performed By: #### L 501.5200, L100.0100, L500.4050, L503.6620, L501.9520 ####[facility] [address] [place], [address] Hemoglobin (Bld) [Mass/Vol] 10.1 g/dL Low 13.0-16.5 [facility] Comment on above: Performed By: #### L 501.5200, L100.0100, L500.4050, L503.6620, L501.9520 ####[facility] [address] [place], [address] IG% 0.400 Normal 0.0-0.9 [facility] Comment on above: Result Comment: IG% - Immature Granulocytes (promyelocytes, myelocytes and metamyelocytes) > 1% indicates that a LEFT SHIFT is Present. Performed By: #### L 501.5200, L100.0100, L500.4050, L503.6620, L501.9520 ####[facility] [address] [place], [address] Lymphocytes/100 WBC (Bld) 22.0 % Normal 19-41 [facility] Comment on above: Performed By: #### L 501.5200, L100.0100, L500.4050, L503.6620, L501.9520 ####[facility] [address] [place], [address] MCH (RBC) [Entitic mass] 27.2 pg Normal 27.0-32.0 [facility] Comment on above: Performed By: #### L 501.5200, L100.0100, L500.4050, L503.6620, L501.9520 ####[facility] [address] [place], [address] MCHC (RBC) [Mass/Vol] 30.4 g/dL Low 32-36 [facility] Comment on above: Performed By: #### L 501.5200, L100.0100, L500.4050, L503.6620, L501.9520 ####[facility] [address] [place], [address] MCV (RBC) [Entitic vol] 89.2 fL Normal 80-94 [facility] Comment on above: Performed By: #### L 501.5200, L100.0100, L500.4050, L503.6620, L501.9520 ####[facility] [address] [place], [address] Monocytes/100 WBC (Bld) 11.5 % High 0-10 [facility] Comment on above: Performed By: #### L 501.5200, L100.0100, L500.4050, L503.6620, L501.9520 ####[facility] [address] [place], [address] Neutrophils/100 WBC (Bld) 58.9 % Normal 47-70 [facility] Comment on above: Performed By: #### L 501.5200, L100.0100, L500.4050, L503.6620, L501.9520 ####[facility] [address] [place], [address] Nucleated RBC (Bld) [#/Vol] 0 10*3/uL Normal 0-5 [facility] Comment on above: Performed By: #### L 501.5200, L100.0100, L500.4050, L503.6620, L501.9520 ####[facility] [address] [place], [address] Platelet mean volume (Bld) [Entitic vol] 10.4 fL Normal 6.2-12.0 [facility] Comment on above: Performed By: #### L 501.5200, L100.0100, L500.4050, L503.6620, L501.9520 ####[facility] [address] [place], [address] Platelets (Bld) [#/Vol] 239 10*3/uL Normal 150-450 [facility] Comment on above: Performed By: #### L 501.5200, L100.0100, L500.4050, L503.6620, L501.9520 ####[facility] [address] [place], [address] RBC (Bld) [#/Vol] 3.72 10*6/uL Low 4.6-6.2 [facility] Comment on above: Performed By: #### L 501.5200, L100.0100, L500.4050, L503.6620, L501.9520 ####[facility] [address] [place], [address] RDW SD 46.4 fl High 35.1-43.9 [facility] Comment on above: Performed By: #### L 501.5200, L100.0100, L500.4050, L503.6620, L501.9520 ####[facility] [address] [place], [address] WBC (Bld) [#/Vol] 7.4 10*3/uL Normal 4.4-11.0 [facility] Comment on above: Performed By: #### L 501.5200, L100.0100, L500.4050, L503.6620, L501.9520 ####[facility] [address] [place], [address] Comprehensive Metabolic [facility] 03-01-2024 Albumin [Mass/Vol] 3.8 g/dL Normal 3.2-5.0 [facility] Comment on above: Performed By: #### L 501.5200, L100.0100, L500.4050, L503.6620, L501.9520 ####[facility] [address] [place], [address] Albumin/Globulin [Mass ratio] 1.3 {ratio} Normal 0.9-2.4 [facility] Comment on above: Performed By: #### L 501.5200, L100.0100, L500.4050, L503.6620, L501.9520 ####[facility] [address] [place], [address] ALK P 64 U/L Normal 45-117 [facility] Comment on above: Performed By: #### L 501.5200, L100.0100, L500.4050, L503.6620, L501.9520 ####[facility] [address] [place], [address] ALT [Catalytic activity/Vol] 24 U/L Normal 16-61 [facility] Comment on above: Performed By: #### L 501.5200, L100.0100, L500.4050, L503.6620, L501.9520 ####[facility] [address] [place], [address] AST [Catalytic activity/Vol] 12 U/L Low 15-37 [facility] Comment on above: Performed By: #### L 501.5200, L100.0100, L500.4050, L503.6620, L501.9520 ####[facility] [address] [place], [address] Bilirubin [Mass/Vol] 0.40 mg/dL Normal 0.20-1.00 [facility] Comment on above: Result Comment: For patients on eltrombopag therapy, use of Dimension [place] TBIL is not recommended. Performed By: #### L 501.5200, L100.0100, L500.4050, L503.6620, L501.9520 ####[facility] [address] [place], [address] BUN/CRE 21.7 RATIO High 10-20 [facility] Comment on above: Performed By: #### L 501.5200, L100.0100, L500.4050, L503.6620, L501.9520 ####[facility] [address] [place], [address] CA,Total 9.3 mg/dL Normal 8.5-10.1 [facility] Comment on above: Performed By: #### L 501.5200, L100.0100, L500.4050, L503.6620, L501.9520 ####[facility] [address] [place], [address] Chloride [Moles/Vol] 110 mmol/L High 98-107 [facility] Comment on above: Performed By: #### L 501.5200, L100.0100, L500.4050, L503.6620, L501.9520 ####[facility] [address] [place], [address] CO2 [Moles/Vol] 29.0 mmol/L Normal 21.0-32.0 [facility] Comment on above: Performed By: #### L 501.5200, L100.0100, L500.4050, L503.6620, L501.9520 ####[facility] [address] [place], [address] Creatinine [Mass/Vol] 1.06 mg/dL Normal 0.70-1.30 [facility] Comment on above: Result Comment: The validity of the calculated GFR GFRAA in patients over 70 years has not been determined. Clinical correlation is essential. Performed By: #### L 501.5200, L100.0100, L500.4050, L503.6620, L501.9520 ####[facility] [address] [place], [address] EST GFR - AA 90 mL/min Normal >60 [facility] Comment on above: Result Comment: Afri can [place] GFR Calc Performed By: #### L 501.5200, L100.0100, L500.4050, L503.6620, L501.9520 ####[facility] [address] [place], [address] GAP 3 Low 5-15 [facility] Comment on above: Performed By: #### L 501.5200, L100.0100, L500.4050, L503.6620, L501.9520 ####[facility] [address] [place], [address] GFR/1.73 sq M.predicted among non-blacks MDRD (S/P/Bld) [Vol rate/Area] 74 mL/min/{1.73_m2} Normal >60 [facility] Comment on above: Result Comment: Non- GFR Calc Performed By: #### L 501.5200, L100.0100, L500.4050, L503.6620, L501.9520 ####[facility] [address] [place], [address] Globulin (S) [Mass/Vol] 3.0 g/dL Normal 2.2-4.2 [facility] Comment on above: Performed By: #### L 501.5200, L100.0100, L500.4050, L503.6620, L501.9520 ####[facility] [address] [place], [address] Glucose [Mass/Vol] 101 mg/dL Normal 74-106 [facility] Comment on above: Result Comment: Fast ing Glucose result from 100 to 125 mg/dL suggests IMPAIRED HOMEOSTASIS per A.D.A. criteria. Performed By: #### L 501.5200, L100.0100, L500.4050, L503.6620, L501.9520 ####[facility] [address] [place], [address] Potassium [Moles/Vol] 3.9 mmol/L Normal 3.5-5.1 [facility] Comment on above: Performed By: #### L 501.5200, L100.0100, L500.4050, L503.6620, L501.9520 ####[facility] [address] [place], [address] Sodium [Moles/Vol] 142 mmol/L Normal 136-145 [facility] Comment on above: Performed By: #### L 501.5200, L100.0100, L500.4050, L503.6620, L501.9520 ####[facility] [address] [place], [address] T PROT 6.8 g/dL Normal 6.4-8.2 [facility] Comment on above: Performed By: #### L 501.5200, L100.0100, L500.4050, L503.6620, L501.9520 ####[facility] [address] [place], [address] Urea nitrogen [Mass/Vol] 23 mg/dL High 7-18 [facility] Comment on above: Performed By: #### L 501.5200, L100.0100, L500.4050, L503.6620, L501.9520 ####[facility] [address] [place], [address] Magnesiumon 03-01-2024 Magnesium [Mass/Vol] 2.9 mg/dL High 1.6-2.6 [facility] Comment on above: Performed By: #### L 501.5200, L100.0100, L500.4050, L503.6620, L501.9520 ####[facility] [address] [place], [address] Thyroid Stim Hormone (TSH)on 03-01-2024 TSH 0.805 uIU/mL Normal 0.358-3.740 [facility] Comment on above: Performed By: #### L 501.5200, L100.0100, L500.4050, L503.6620, L501.9520 ####[facility] [address] [place], [address] CR - History AND Physicalon 02-28-2024 CR - History & Physical [facility] [address] [place] [address] CR - History Physical MR#: [id number] Acct: [id number] Name: TRE QUIÑONES Rep #: [id number] : 1955 69 From: Darryl Aj BS, RVT PCP: [facility] DOS: 02/28/24 CR - History Physical General [...] Negative Advanced Directives Advanced Directives Power of Crew Clerk: Yes Living Will: Yes Advance Directives Information [...] at home (more content not included)... Normal [facility] Cardiology Visit Reporton Cardiology Visit Report [facility] [address] [facility] [place] [address] OFFICE VISIT Date of Service: 02/19/24 MR#: [id number] Acct: [id number] Name: TRE QUIÑONES Rep #: [id number] : 1955 Provider: JOHNNA lira Age/Sex: 69/M [place] [facility] [place]: Signed [facility] History of Present Illness Details: TRE QUIÑONES, [...] and flutter. He was sent to the [facility]. The more recent evaluation demonstrated areas of atrial flutter in the tricuspid annulus region. He also subsequently had a permanent pacemaker implanted after his radio frequency ablation in 2018. He had started experiencing more atrial arrhythmias once again and he was sent back to [facility]. It was felt after discussing all the options that the sotalol should be discontinued and he was started on amiodarone. He had been following up at the [facility] due to insurance issues. He had a stress test in 2020. He did have an echocardiogram performed on September 13 at the [facility] and he was recorded to have a moderately dilated left ventricle with estimated ejection fraction of 60 to 65% right ventricle with a pacemaker placed in mitral valve which was normal with severe mitral regurgitation. He had echocardiogram in October 2023 at [facility] that showed ejection fraction of 60% and moderately severe eccentric mitral valve insufficiency. Transesophageal echocardiogram on 11/21/2023 showed severe mitral valve insufficiency. Heart catheterization on 11/21/2023 showed angiographically normal coronary arteries. He was seen with [facility], Dr. Diamond in January 2024. Mitral valve [...] room air Intake Visit Reasons: 1 W Traffic Chief Required: No Accompanied by: Is patient in [...] 02/19/24 Hist (more content not included)... Normal [facility] 12 Lead EKG performed by [facility] on 02-14-2024 12 Lead EKG performed by [facility] [address] [place] [address] 12 Lead EKG performed by [facility] 02/14/24 0938 MR#: [id number] Acct: [id number] Name: TRE QUIÑONES Rep #: [id number] : 1955 69 From: Evelyn Deleon FACTORY MACHINE COMPUTER OPERATOR FACTORY MACHINE COMPUTER OPERATOR-C Attending Dr: JOHNNA Thornton Status: DEP AMB Ordering Dr: Evelyn Deleon NP FACTORY MACHINE COMPUTER OPERATOR-C Date: 02/14/24 [place] [facility] Sex: M C Admitted: [facility]/12 Lead EKG performed by [facility] ECG Report Interpretation -----Electronic ventricular pacemaker Pacemaker ECG, No further analysis INSUFFICIENT DATAElectronically signed on 02/15/2024 at 08:43 by Omer Wray Software Version [id number] 02/15/24846 Date Evelyn Deleon NP FACTORY MACHINE COMPUTER OPERATOR-C CC: [facility] Date Dictated: 02/14/24937 Date Transcribed: 02/14/24937 Collection Systems Technician: SEGUNDO Signed Normal [facility] BNP,B-Type NATRIURETIC PEPTI Garrett 02-14-2024 Natriuretic peptide B (Bld) [Mass/Vol] 459.5 pg/mL High 0-100 [facility] Comment on above: Performed By: #### L 100.0100, L501.5200, L500.4050, L503.6620 ####[facility] [address] [place], [address] CBC W/Diff, Automatedon 01-23 Absolute Lymph 1.37 X10 3/uL Normal 0.83-4.51 [facility] Comment on above: Performed By: #### L 100.0100, L501.5200, L500.4050, L503.6620 ####[facility] [address] [place], [address] Absolute Neut 5.3 X10 3/uL Normal 2.0-7.7 [facility] Comment on above: Performed By: #### L 100.0100, L501.5200, L500.4050, L503.6620 ####[facility] [address] [place], [address] Basophils/100 WBC (Bld) 1.4 % High 0-1 [facility] Comment on above: Performed By: #### L 100.0100, L501.5200, L500.4050, L503.6620 ####[facility] [address] [place], [address] Eosinophils/100 WBC (Bld) 3.4 % Normal 0-5 [facility] Comment on above: Performed By: #### L 100.0100, L501.5200, L500.4050, L503.6620 ####[facility] [address] [place], [address] Erythrocyte distribution width (RBC) [Ratio] 15.0 % High 11.6-14.6 [facility] Comment on above: Performed By: #### L 100.0100, L501.5200, L500.4050, L503.6620 ####[facility] [address] [place], [address] Hematocrit (Bld) [Volume fraction] 32.7 % Low 40-54 [facility] Comment on above: Performed By: #### L 100.0100, L501.5200, L500.4050, L503.6620 ####[facility] [address] [place], [address] Hemoglobin (Bld) [Mass/Vol] 10.0 g/dL Low 13.0-16.5 [facility] Comment on above: Performed By: #### L 100.0100, L501.5200, L500.4050, L503.6620 ####[facility] [address] [place], [address] IG% 0.600 Normal 0.0-0.9 [facility] Comment on above: Result Comment: IG% - Immature Granulocytes (promyelocytes, myelocytes and metamyelocytes) > 1% indicates that a LEFT SHIFT is Present. Performed By: #### L 100.0100, L501.5200, L500.4050, L503.6620 ####[facility] [address] [place], [address] Lymphocytes/100 WBC (Bld) 17.3 % Low 19-41 [facility] Comment on above: Performed By: #### L 100.0100, L501.5200, L500.4050, L503.6620 ####[facility] [address] [place], [address] MCH (RBC) [Entitic mass] 27.5 pg Normal 27.0-32.0 [facility] Comment on above: Performed By: #### L 100.0100, L501.5200, L500.4050, L503.6620 ####[facility] [address] [place], [address] MCHC (RBC) [Mass/Vol] 30.6 g/dL Low 32-36 [facility] Comment on above: Performed By: #### L 100.0100, L501.5200, L500.4050, L503.6620 ####[facility] [address] [place], [address] MCV (RBC) [Entitic vol] 89.8 fL Normal 80-94 [facility] Comment on above: Performed By: #### L 100.0100, L501.5200, L500.4050, L503.6620 ####[facility] [address] [place], [address] Monocytes/100 WBC (Bld) 10.1 % High 0-10 [facility] Comment on above: Performed By: #### L 100.0100, L501.5200, L500.4050, L503.6620 ####[facility] [address] [place], [address] Neutrophils/100 WBC (Bld) 67.2 % Normal 47-70 [facility] Comment on above: Performed By: #### L 100.0100, L501.5200, L500.4050, L503.6620 ####[facility] [address] [place], [address] Nucleated RBC (Bld) [#/Vol] 0 10*3/uL Normal 0-5 [facility] Comment on above: Performed By: #### L 100.0100, L501.5200, L500.4050, L503.6620 ####[facility] [address] [place], [address] Platelet mean volume (Bld) [Entitic vol] 9.1 fL Normal 6.2-12.0 [facility] Comment on above: Performed By: #### L 100.0100, L501.5200, L500.4050, L503.6620 ####[facility] [address] [place], [address] Platelets (Bld) [#/Vol] 362 10*3/uL Normal 150-450 [facility] Comment on above: Performed By: #### L 100.0100, L501.5200, L500.4050, L503.6620 ####[facility] [address] [place], [address] RBC (Bld) [#/Vol] 3.64 10*6/uL Low 4.6-6.2 [facility] Comment on above: Performed By: #### L 100.0100, L501.5200, L500.4050, L503.6620 ####[facility] [address] [place], [address] RDW SD 49.0 fl High 35.1-43.9 [facility] Comment on above: Performed By: #### L 100.0100, L501.5200, L500.4050, L503.6620 ####[facility] [address] [place], [address] WBC (Bld) [#/Vol] 7.9 10*3/uL Normal 4.4-11.0 [facility] Comment on above: Performed By: #### L 100.0100, L501.5200, L500.4050, L503.6620 ####[facility] [address] [place], [address] Cardiology Visit Reporton Cardiology Visit Report [facility] [address] [place] [address] OFFICE VISIT Date of Service: 02/14/24 MR#: [id number] Acct: [id number] Name: TRE QUIÑONES Rep #: [id number] : 1955 Provider: JOHNNA lira Age/Sex: 69/M [place] [facility] [place] Status: Signed [facility] History of Present Illness Details: TRE QUIÑONES, [...] and flutter. He was sent to the [facility]. The more recent evaluation demonstrated areas of atrial flutter in the tricuspid annulus region. He also subsequently had a permanent pacemaker implanted after his radio frequency ablation in 2017. He had started experiencing more atrial arrhythmias once again and he was sent back to [facility]. It was felt after discussing all the options that the sotalol should be discontinued and he was started on amiodarone. He had been following up at the [facility] due to insurance issues. He had a stress test in 2020. He did have an echocardiogram performed on September 13 at the [facility] and he was recorded to have a moderately dilated left ventricle with estimated ejection fraction of 60 to 65% right ventricle with a pacemaker placed in mitral valve which was normal with severe mitral regurgitation. He had echocardiogram in October 2023 at [facility] that showed ejection fraction of 60% and moderately severe eccentric mitral valve insufficiency. Transesophageal echocardiogram on 11/21/2023 showed severe mitral valve insufficiency. Heart catheterization on 11/21/2023 showed angiographically normal coronary arteries. He was seen with [facility], Dr. Diamond in January 2024. 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 Normal [facility] Chest PA and Lateralon 02-13 Chest PA and Lateral [facility] Services [address] [place] [address] Chest PA and Lateral MR#: [id number] Acct: [id number] Name: TRE QUIÑONES Rep #: [id number] : 1955 M 69 From: Harley Kitchen PCP: [facility] Status: REG CLI Study: Chest PA and Lateral Date of Exam: 02/14/24 Exam# [id number] Ordering Dr: Evelyn Deleon FACTORY MACHINE COMPUTER OPERATOR FACTORY MACHINE COMPUTER OPERATOR-C [id number] INDICATION: SOB -- recent valve repair surgery- [...] at 15:55 EDT , CC: JOHNNA Deleon; [facility] Collection Systems Technician: Signed Normal [facility] Comprehensive Metabolic Prof ilon 02-14-2024 Albumin [Mass/Vol] 3.4 g/dL Normal 3.2-5.0 [facility] Comment on above: Performed By: #### L 100.0100, L501.5200, L500.4050, L503.6620 ####[facility] [address] [place], [address] Albumin/Globulin [Mass ratio] 1.0 {ratio} Normal 0.9-2.4 [facility] Comment on above: Performed By: #### L 100.0100, L501.5200, L500.4050, L503.6620 ####[facility] [address] [place], [address] ALK P 86 U/L Normal 45-117 [facility] Comment on above: Performed By: #### L 100.0100, L501.5200, L500.4050, L503.6620 ####[facility] [address] [place], [address] ALT [Catalytic activity/Vol] 35 U/L Normal 16-61 [facility] Comment on above: Performed By: #### L 100.0100, L501.5200, L500.4050, L503.6620 ####[facility] [address] [place], [address] AST [Catalytic activity/Vol] 15 U/L Normal 15-37 [facility] Comment on above: Performed By: #### L 100.0100, L501.5200, L500.4050, L503.6620 ####[facility] [address] [place], [address] Bilirubin [Mass/Vol] 0.40 mg/dL Normal 0.20-1.00 [facility] Comment on above: Result Comment: For patients on eltrombopag therapy, use of Dimension [place] TBIL is not recommended. Performed By: #### L 100.0100, L501.5200, L500.4050, L503.6620 ####[facility] [address] [place], [address] BUN/CRE 27.0 RATIO High 10-20 [facility] Comment on above: Performed By: #### L 100.0100, L501.5200, L500.4050, L503.6620 ####[facility] [address] [place], [address] CA,Total 9.4 mg/dL Normal 8.5-10.1 [facility] Comment on above: Performed By: #### L 100.0100, L501.5200, L500.4050, L503.6620 ####[facility] [address] [place], [address] Chloride [Moles/Vol] 105 mmol/L Normal 98-107 [facility] Comment on above: Performed By: #### L 100.0100, L501.5200, L500.4050, L503.6620 ####[facility] [address] [place], [address] CO2 [Moles/Vol] 31.0 mmol/L Normal 21.0-32.0 [facility] Comment on above: Performed By: #### L 100.0100, L501.5200, L500.4050, L503.6620 ####[facility] [address] [place], [address] Creatinine [Mass/Vol] 1.11 mg/dL Normal 0.70-1.30 [facility] Comment on above: Result Comment: The validity of the calculated GFR GFRAA in patients over 70 years has not been determined. Clinical correlation is essential. Performed By: #### L 100.0100, L501.5200, L500.4050, L503.6620 ####[facility] [address] [place], [address] EST GFR - AA 85 mL/min Normal >60 [facility] Comment on above: Result Comment: Afri can [place] GFR Calc Performed By: #### L 100.0100, L501.5200, L500.4050, L503.6620 ####[facility] [address] [place], [address] GAP 2 Low 5-15 [facility] Comment on above: Performed By: #### L 100.0100, L501.5200, L500.4050, L503.6620 ####[facility] [address] [place], [address] GFR/1.73 sq M.predicted among non-blacks MDRD (S/P/Bld) [Vol rate/Area] 70 mL/min/{1.73_m2} Normal >60 [facility] Comment on above: Result Comment: Non- GFR Calc Performed By: #### L 100.0100, L501.5200, L500.4050, L503.6620 ####[facility] [address] [place], [address] Globulin (S) [Mass/Vol] 3.4 g/dL Normal 2.2-4.2 [facility] Comment on above: Performed By: #### L 100.0100, L501.5200, L500.4050, L503.6620 ####[facility] [address] [place], [address] Glucose [Mass/Vol] 89 mg/dL Normal 74-106 [facility] Comment on above: Performed By: #### L 100.0100, L501.5200, L500.4050, L503.6620 ####[facility] [address] [place], [address] Potassium [Moles/Vol] 4.1 mmol/L Normal 3.5-5.1 [facility] Comment on above: Performed By: #### L 100.0100, L501.5200, L500.4050, L503.6620 ####[facility] [address] [place], [address] Sodium [Moles/Vol] 138 mmol/L Normal 136-145 [facility] Comment on above: Performed By: #### L 100.0100, L501.5200, L500.4050, L503.6620 ####[facility] [address] [place], [address] T PROT 6.8 g/dL Normal 6.4-8.2 [facility] Comment on above: Performed By: #### L 100.0100, L501.5200, L500.4050, L503.6620 ####[facility] [address] [place], [address] Urea nitrogen [Mass/Vol] 30 mg/dL High 7-18 [facility] Comment on above: Performed By: #### L 100.0100, L501.5200, L500.4050, L503.6620 ####[facility] [address] [place], [address] Magnesiumon 02-14-2024 Magnesium [Mass/Vol] 2.3 mg/dL Normal 1.6-2.6 [facility] Comment on above: Performed By: #### L 100.0100, L501.5200, L500.4050, L503.6620 ####[facility] [address] [place], [address] CBC panel Auto (Bld)on 02-05 Erythrocyte distribution width (RBC) [Ratio] 14.6 % Normal 11.5-15.0 [facility] Comment on above: Order Comment: Speci men Type: BLOOD SPECIMENOrdering Facility: [facility] Address: [address] [place] [address] Performed By: #### 5 8410-2 ####[facility] LABIA [id number] [place] [address] [place] Hematocrit (Bld) [Volume fraction] 28.8 % Low 39.0-51.0 [facility] Comment on above: Order Comment: Speci men Type: BLOOD SPECIMENOrdering Facility: [facility] Address: [address] [place] [address] Performed By: #### 5 8410-2 ####[facility] LABIA [id number] [place] [address] [place] Hemoglobin (Bld) [Mass/Vol] 9.0 g/dL Low 13.0-17.0 [facility] Comment on above: Order Comment: Speci men Type: BLOOD SPECIMENOrdering Facility: [facility] Address: [address] [place] [address] Performed By: #### 5 8410-2 ####[facility] LABIA [id number] [place] [address] [place] MCH (RBC) [Entitic mass] 28.0 pg Normal 26.0-34.0 [facility] Comment on above: Order Comment: Speci men Type: BLOOD SPECIMENOrdering Facility: [facility] Address: [address] [place] [address] Performed By: #### 5 8410-2 ####[facility] LABIA [id number] [place] [address] [place] MCHC (RBC) [Mass/Vol] 31.3 g/dL Normal 30.5-36.0 [facility] Comment on above: Order Comment: Speci men Type: BLOOD SPECIMENOrdering Facility: [facility] Address: [address] [place] [address] Performed By: #### 5 8410-2 ####[facility] LABIA [id number] [place] [address] [place] MCV (RBC) [Entitic vol] 89.7 fL Normal 80.0-100.0 C [facility] Comment on above: Order Comment: Speci men Type: BLOOD SPECIMENOrdering Facility: [facility] Address: [address] [place] [address] Performed By: #### 5 8410-2 ####[facility] [id number] [place] [address] [place] Nucleated RBC (Bld) [#/Vol] 10*3/uL Normal <0.01 [facility] Comment on above: Order Comment: Speci men Type: BLOOD SPECIMENOrdering Facility: [facility] Address: [address] [place] [address] Performed By: #### 5 8410-2 ####[facility] [id number] [place] [address] [place] Platelet mean volume (Bld) [Entitic vol] 9.2 fL Normal 9.0-12.7 [facility] Comment on above: Order Comment: Speci men Type: BLOOD SPECIMENOrdering Facility: [facility] Address: [address] [place] [address] Performed By: #### 5 8410-2 ####[facility] LABIA [id number] [place] [address] [place] Platelets (Bld) [#/Vol] 403 10*3/uL High 150-400 [facility] Comment on above: Order Comment: Speci men Type: BLOOD SPECIMENOrdering Facility: [facility] Address: [address] [place] [address] Performed By: #### 5 8410-2 ####[facility] LABCLIA [id number] [address] [address] [place] RBC (Bld) [#/Vol] 3.21 10*6/uL Low 4.20-6.00 [facility] Comment on above: Order Comment: Speci men Type: BLOOD SPECIMENOrdering Facility: [facility] Address: [address] [place] [address] Performed By: #### 5 8410-2 ####[facility] LABIA [id number] [address] [address] [place] WBC (Bld) [#/Vol] 9.24 10*3/uL Normal 3.70-11.00 [facility] Comment on above: Order Comment: Speci men Type: BLOOD SPECIMENOrdering Facility: [facility] Address: [address] [place] [address] Performed By: #### 5 8410-2 ####[facility] LABIA [id number] [place] [address] [place] CNOVon 02-06-2024 CNOV Normal [facility] Comprehensive metabolic 2000 panelon 02-06-2024 Albumin [Mass/Vol] 3.8 g/dL Low 3.9-4.9 [facility] Comment on above: Order Comment: Speci men Type: BLOOD SPECIMENOrdering Facility: [facility] Address: [address] [place] [address] Performed By: #### 2 4323-8 ####[facility] LABIA [id number] [place] [address] [place] ALP [Catalytic activity/Vol] 89 U/L Normal 38-113 [facility] Comment on above: Order Comment: Speci men Type: BLOOD SPECIMENOrdering Facility: [facility] Address: [address] [place] [address] Performed By: #### 2 4323-8 ####[facility] LABCLIA [id number] [place] [id number] [place] ALT [Catalytic activity/Vol] 40 U/L Normal 10-54 [facility] Comment on above: Order Comment: Speci men Type: BLOOD SPECIMENOrdering Facility: [facility] Address: [address] [place] [address] Performed By: #### 2 4323-8 ####[facility] LABCLIA [id number] [place] [address] [place] Anion gap [Moles/Vol] 11 mmol/L Normal 8-15 [facility] Comment on above: Order Comment: Speci men Type: BLOOD SPECIMENOrdering Facility: [facility] Address: [address] [place] [address] Performed By: #### 2 4323-8 ####[facility] LABCLIA [id number] [place] [address] [place] AST [Catalytic activity/Vol] 23 U/L Normal 14-40 [facility] Comment on above: Order Comment: Speci men Type: BLOOD SPECIMENOrdering Facility: [facility] Address: [address] [place], [place] [address] Performed By: #### 2 4323-8 ####[facility] LABCLIA [id number] [place] [address] [place] Bilirubin [Mass/Vol] 0.3 mg/dL Normal 0.2-1.3 [facility] Comment on above: Order Comment: Speci men Type: BLOOD SPECIMENOrdering Facility: [facility] Address: [address] [place], [place] [address] Performed By: #### 2 4323-8 ####[facility] LABCLIA [id number] [place] [id number] [place] Calcium [Mass/Vol] 9.3 mg/dL Normal 8.5-10.2 [facility] Comment on above: Order Comment: Speci men Type: BLOOD SPECIMENOrdering Facility: [facility] Address: [address] [place] [address] Performed By: #### 2 4323-8 ####[facility] LABCLIA [id number] [place] [address] [place] Chloride [Moles/Vol] 105 mmol/L Normal 98-107 [facility] Comment on above: Order Comment: Speci men Type: BLOOD SPECIMENOrdering Facility: [facility] Address: [address] [place] [address] Performed By: #### 2 4323-8 ####[facility] LABCLIA [id number] [place] [address] [place] CO2 [Moles/Vol] 24 mmol/L Normal 22-30 [facility] Comment on above: Order Comment: Speci men Type: BLOOD SPECIMENOrdering Facility: [facility] Address: [address] [place] [address] Performed By: #### 2 4323-8 ####[facility] LABCLIA [id number] [place] [address] [place] Creatinine [Mass/Vol] 1.19 mg/dL Normal 0.73-1.22 [facility] Comment on above: Order Comment: Speci men Type: BLOOD SPECIMENOrdering Facility: [facility] Address: [address] [place] [address] Performed By: #### 2 4323-8 ####[facility] LABCLIA [id number] [place] [address] [place] Creatinine and Glomerular filtration rate.predicted panel (S/P/Bld) 67 mL/min/1.73m??? Normal >=60 [facility] Comment on above: Order Comment: Speci men Type: BLOOD SPECIMENOrdering Facility: [facility] Address: [address] [place] [address] Result Comment: Talisha mated Glomerular Filtration Rate [...] actual GFR. Performed By: #### 2 4323-8 ####[facility] LABCLIA [id number] [place] [address] [place] Glucose [Mass/Vol] 97 mg/dL Normal 74-99 [facility] Comment on above: Order Comment: Jeison parry Type: BLOOD SPECIMENOrdering Facility: [facility] Address: [address] [place] [address] Result Comment: The [place] Diabetes Association (ADA) provides guidance for cutoff [...] Standards of Medical Care in Diabetes 2016, [place] Diabetes Association. Diabetes Care. 2016.39(Suppl 1). Performed By: #### 2 4323-8 ####[facility] LABIA [id number] [place] [address] [place] Potassium [Moles/Vol] 4.7 mmol/L Normal 3.7-5.1 [facility] Comment on above: Order Comment: Jeison parry Type: BLOOD SPECIMENOrdering Facility: [facility] Address: [address] [place] [id number] Performed By: #### 2 4323-8 ####[facility] LABCLIA [id number] [place] [id number] [place] Protein [Mass/Vol] 6.1 g/dL Low 6.3-8.0 [facility] Comment on above: Order Comment: Speci men Type: BLOOD SPECIMENOrdering Facility: [facility] Address: [address] [place] [address] Performed By: #### 2 4323-8 ####[facility] LABCLIA [id number] [place] [address] [place] Sodium [Moles/Vol] 140 mmol/L Normal 136-144 [facility] Comment on above: Order Comment: Speci men Type: BLOOD SPECIMENOrdering Facility: [facility] Address: [address] [place] [address] Performed By: #### 2 4323-8 ####[facility] LABCLIA [id number] [place] [address] [place] Urea nitrogen [Mass/Vol] 36 mg/dL High 9-24 [facility] Comment on above: Order Comment: Speci men Type: BLOOD SPECIMENOrdering Facility: [facility] Address: [address] [place] [address] Performed By: #### 2 4323-8 ####[facility] LABCLIA [id number] [place] [address] [place] ECG COMPLETEon 02-06-2024 ECG COMPLETE Normal [facility] XR CHEST 2V FRONTAL/LATon XR CHEST 2V FRONTAL/LAT Normal C [facility] XR Chest PA and Lateralon IMPRESSION: See result. Collection Systems Technician: PSCB Transcribe Date/Time: Feb 06 2024 2:34P Dictated by : CAROLYN ROBERTSON MD This examination was interpreted and the report reviewed and electronically signed by: CAROLYN ROBERTSON MD on Feb 06 2024 2:48PM [facility] DIVISION OF RADIOLOGY * * *Final Report* [...] the thoracic spine. IMPRESSION IMPRESSION: See result. Collection Systems Technician: PSCB Transcribe Date/Time: Feb 06 2024 2:34P Dictated by : CAROLYN ROBERTSON MD This examination was interpreted and the report reviewed and electronically signed by: CAROLYN ROBERTSON MD on Feb 06 2024 2:48PM EST [facility] Radiology Study observation (narrative) Jarad Mendoza XR Chest PA and LateralOrder ed By: Ccf Provider on 02-06-2024 [facility] CNPNon 01-31-2024 CNPN Normal [facility] ALLIED HEALTHon 01-29-2024 ALLIED HEALTH Normal [facility] CASE MANAGEMon 01-29-2024 CASE MANAGEM Normal [facility] CBC panel Auto (Bld)on 01-28 Erythrocyte distribution width (RBC) [Ratio] 13.6 % Normal 11.5-15.0 [facility] Comment on above: Order Comment: Speci men Type: BLOOD SPECIMENOrdering Facility: [facility] Address: [address] [place] [address] Performed By: #### 5 8410-2 ####[facility] LABIA [id number] [place] [address] [place] Hematocrit (Bld) [Volume fraction] 31.2 % Low 39.0-51.0 [facility] Comment on above: Order Comment: Speci men Type: BLOOD SPECIMENOrdering Facility: [facility] Address: [address] [place] [address] Performed By: #### 5 8410-2 ####[facility] LABIA [id number] [place] [address] [place] [place] Hemoglobin (Bld) [Mass/Vol] 9.9 g/dL Low 13.0-17.0 [facility] Comment on above: Order Comment: Speci men Type: BLOOD SPECIMENOrdering Facility: [facility] Address: [address] [place] [address] Performed By: #### 5 8410-2 ####[facility] LABCLIA [id number] [place] [address] [place] MCH (RBC) [Entitic mass] 27.7 pg Normal 26.0-34.0 [facility] Comment on above: Order Comment: Speci men Type: BLOOD SPECIMENOrdering Facility: [facility] Address: [address] [place] [address] Performed By: #### 5 8410-2 ####[facility] LABCLIA [id number] [place] [address] [place] MCHC (RBC) [Mass/Vol] 31.7 g/dL Normal 30.5-36.0 [facility] Comment on above: Order Comment: Speci men Type: BLOOD SPECIMENOrdering Facility: [facility] Address: [address] [place] [address] Performed By: #### 5 8410-2 ####[facility] LABCLIA [id number] [place] [address] [place] MCV (RBC) [Entitic vol] 87.2 fL Normal 80.0-100.0 [facility] Comment on above: Order Comment: Speci men Type: BLOOD SPECIMENOrdering Facility: [facility] Address: [address] [place] [address] Performed By: #### 5 8410-2 ####[facility] LABCLIA [id number] [place] [address] [place] Nucleated RBC (Bld) [#/Vol] 10*3/uL Normal <0.01 [facility] Comment on above: Order Comment: Speci men Type: BLOOD SPECIMENOrdering Facility: [facility] Address: [address] [place] [address] Performed By: #### 5 8410-2 ####[facility] LABIA [id number] [place] [address] [place] Platelet mean volume (Bld) [Entitic vol] 10.0 fL Normal 9.0-12.7 [facility] Comment on above: Order Comment: Speci men Type: BLOOD SPECIMENOrdering Facility: [facility] Address: [address] [place] [address] Performed By: #### 5 8410-2 ####[facility] LABCLIA [id number] [place] [address] [place] Platelets (Bld) [#/Vol] 191 10*3/uL Normal 150-400 [facility] Comment on above: Order Comment: Speci men Type: BLOOD SPECIMENOrdering Facility: [facility] Address: [address] [place] [address] Performed By: #### 5 8410-2 ####[facility] LABCLIA [id number] [address] [address] [place] RBC (Bld) [#/Vol] 3.58 10*6/uL Low 4.20-6.00 [facility] Comment on above: Order Comment: Speci men Type: BLOOD SPECIMENOrdering Facility: [facility] Address: [address] [place] [address] Performed By: #### 5 8410-2 ####[facility] LABCLIA [id number] [place] [address] [place] WBC (Bld) [#/Vol] 7.60 10*3/uL Normal 3.70-11.00 [facility] Comment on above: Order Comment: Speci men Type: BLOOD SPECIMENOrdering Facility: [facility] Address: [address] [place] [address] Performed By: #### 5 8410-2 ####[facility] LABCLIA [id number] [place] [id number] [place] CNDSon 01-29-2024 CNDS Normal [facility] Comprehensive metabolic 2000 panelon 01-29-2024 Albumin [Mass/Vol] 3.6 g/dL Low 3.9-4.9 [facility] Comment on above: Order Comment: Speci men Type: BLOOD SPECIMENOrdering Facility: [facility] Address: [address] [place] [address] Performed By: #### 2 4323-8 ####[facility] LABCLIA [id number] [place] [id number] [place] ALP [Catalytic activity/Vol] 78 U/L Normal 38-113 [facility] Comment on above: Order Comment: Speci men Type: BLOOD SPECIMENOrdering Facility: [facility] Address: [address] [place] [id number] Performed By: #### 2 4323-8 ####[facility] LABCLIA [id number] [place] [address] [place] ALT [Catalytic activity/Vol] 27 U/L Normal 10-54 [facility] Comment on above: Order Comment: Speci men Type: BLOOD SPECIMENOrdering Facility: [facility] Address: [address] [place] [address] Performed By: #### 2 4323-8 ####[facility] LABCLIA [id number] [place] [address] [place] Anion gap [Moles/Vol] 10 mmol/L Normal 8-15 [facility] Comment on above: Order Comment: Speci men Type: BLOOD SPECIMENOrdering Facility: [facility] Address: [address] [place] [address] Performed By: #### 2 4323-8 ####[facility] LABCLIA [id number] [place] [address] [place] AST [Catalytic activity/Vol] 27 U/L Normal 14-40 [facility] Comment on above: Order Comment: Speci men Type: BLOOD SPECIMENOrdering Facility: [facility] Address: [address] [place], [place] [address] Performed By: #### 2 4323-8 ####[facility] LABCLIA [id number] [place] [id number] [place] Bilirubin [Mass/Vol] 0.7 mg/dL Normal 0.2-1.3 [facility] Comment on above: Order Comment: Speci men Type: BLOOD SPECIMENOrdering Facility: [facility] Address: [address] [place], [place] [address] Performed By: #### 2 4323-8 ####[facility] LABCLIA [id number] [place] [id number] [place] Calcium [Mass/Vol] 9.1 mg/dL Normal 8.5-10.2 [facility] Comment on above: Order Comment: Speci men Type: BLOOD SPECIMENOrdering Facility: [facility] Address: [address] [place] [address] Performed By: #### 2 4323-8 ####[facility] LABCLIA [id number] [place] [address] [place] Chloride [Moles/Vol] 94 mmol/L Low 98-107 [facility] Comment on above: Order Comment: Speci men Type: BLOOD SPECIMENOrdering Facility: [facility] Address: [address] [place] [address] Performed By: #### 2 4323-8 ####[facility] LABCLIA [id number] [place] [address] [place] CO2 [Moles/Vol] 32 mmol/L High 22-30 [facility] Comment on above: Order Comment: Speci men Type: BLOOD SPECIMENOrdering Facility: [facility] Address: [address] [place] [address] Performed By: #### 2 4323-8 ####[facility] LABCLIA [id number] [place] [address] [place] Creatinine [Mass/Vol] 0.95 mg/dL Normal 0.73-1.22 [facility] Comment on above: Order Comment: Speci men Type: BLOOD SPECIMENOrdering Facility: [facility] Address: [address] [place] [address] Performed By: #### 2 4323-8 ####[facility] LABCLIA [id number] [place] [address] [place] Creatinine and Glomerular filtration rate.predicted panel (S/P/Bld) 88 mL/min/1.73m??? Normal >=60 [facility] Comment on above: Order Comment: Speci men Type: BLOOD SPECIMENOrdering Facility: [facility] Address: [address] [place] [address] Result Comment: Talisha mated Glomerular Filtration Rate [...] actual GFR. Performed By: #### 2 4323-8 ####[facility] LABIA [id number] [place] [address] [place] Glucose [Mass/Vol] 98 mg/dL Normal 74-99 [facility] Comment on above: Order Comment: Jeison parry Type: BLOOD SPECIMENOrdering Facility: [facility] Address: [address] [place] [address] Result Comment: The [place] Diabetes [employer] (ADA) provides guidance for cutoff [...] Standards of Medical Care in Diabetes 2016, [place] [employer]. Diabetes Care. 2016.39(Suppl 1). Performed By: #### 2 4323-8 ####[facility] [id number] [place] [address] [place] Potassium [Moles/Vol] 3.4 mmol/L Low 3.7-5.1 [facility] Comment on above: Order Comment: [facility] Type: BLOOD SPECIMENOrdering Facility: [facility] Address: [address] [place] [address] Performed By: #### 2 4323-8 ####[facility] LABCLIA [id number] [place] [address] [place] Protein [Mass/Vol] 6.4 g/dL Normal 6.3-8.0 [facility] Comment on above: Order Comment: Speci men Type: BLOOD SPECIMENOrdering Facility: [facility] Address: [address] [place] [address] Performed By: #### 2 4323-8 ####[facility] LABCLIA [id number] [place] [address] [place] Sodium [Moles/Vol] 136 mmol/L Normal 136-144 [facility] Comment on above: Order Comment: Speci men Type: BLOOD SPECIMENOrdering Facility: [facility] Address: [address] [place] [address] Performed By: #### 2 4323-8 ####[facility] LABCLIA [id number] [place] [address] [place] Urea nitrogen [Mass/Vol] 28 mg/dL High 9-24 [facility] Comment on above: Order Comment: Speci men Type: BLOOD SPECIMENOrdering Facility: [facility] Address: [address] [place] [address] Performed By: #### 2 4323-8 ####[facility] LABCLIA [id number] [place] [address] [place] THERAPY NTon 01-29-2024 THERAPY NT Normal [facility] THERAPY NT Normal [facility] CBC panel Auto (Bld)on 01-27 Erythrocyte distribution width (RBC) [Ratio] 13.9 % Normal 11.5-15.0 [facility] Comment on above: Order Comment: Speci men Type: BLOOD SPECIMENOrdering Facility: [facility] Address: [address] [place] [address] Performed By: #### 5 8410-2 ####[facility] LABCLIA [id number] [place] [address] [place] Hematocrit (Bld) [Volume fraction] 31.1 % Low 39.0-51.0 [facility] Comment on above: Order Comment: Speci men Type: BLOOD SPECIMENOrdering Facility: [facility] Address: [address] [place] [address] Performed By: #### 5 8410-2 ####[facility] LABIA [id number] [place] [address] [place] Hemoglobin (Bld) [Mass/Vol] 9.9 g/dL Low 13.0-17.0 [facility] Comment on above: Order Comment: Speci men Type: BLOOD SPECIMENOrdering Facility: [facility] Address: [address] [place] [address] Performed By: #### 5 8410-2 ####[facility] LABCLIA [id number] [place] [address] [place] MCH (RBC) [Entitic mass] 27.7 pg Normal 26.0-34.0 [facility] Comment on above: Order Comment: Speci men Type: BLOOD SPECIMENOrdering Facility: [facility] Address: [address] [place] [address] Performed By: #### 5 8410-2 ####[facility] LABIA [id number] [place] [address] [place] MCHC (RBC) [Mass/Vol] 31.8 g/dL Normal 30.5-36.0 [facility] Comment on above: Order Comment: Speci men Type: BLOOD SPECIMENOrdering Facility: [facility] Address: [address] [place] [address] Performed By: #### 5 8410-2 ####[facility] LABCLIA [id number] [place] [address] [place] MCV (RBC) [Entitic vol] 87.1 fL Normal 80.0-100.0 [facility] Comment on above: Order Comment: Speci men Type: BLOOD SPECIMENOrdering Facility: [facility] Address: [address] [place] [address] Performed By: #### 5 8410-2 ####[facility] LABIA [id number] [place] [address] [place] Nucleated RBC (Bld) [#/Vol] 10*3/uL Normal <0.01 [facility] Comment on above: Order Comment: Speci men Type: BLOOD SPECIMENOrdering Facility: [facility] Address: [address] [place] [address] Performed By: #### 5 8410-2 ####[facility] LABIA [id number] [place] [address] [place] Platelet mean volume (Bld) [Entitic vol] 10.3 fL Normal 9.0-12.7 [facility] Comment on above: Order Comment: Speci men Type: BLOOD SPECIMENOrdering Facility: [facility] Address: [address] [place] [address] Performed By: #### 5 8410-2 ####[facility] LABIA [id number] [place] [address] [place] Platelets (Bld) [#/Vol] 166 10*3/uL Normal 150-400 [facility] Comment on above: Order Comment: Speci men Type: BLOOD SPECIMENOrdering Facility: [facility] Address: [address] [place] [address] Performed By: #### 5 8410-2 ####[facility] LABIA [id number] [place] [address] [place] RBC (Bld) [#/Vol] 3.57 10*6/uL Low 4.20-6.00 [facility] Comment on above: Order Comment: Speci men Type: BLOOD SPECIMENOrdering Facility: [facility] Address: [address] [place] [address] Performed By: #### 5 8410-2 ####[facility] LABCLIA [id number] [place] [address] [place] WBC (Bld) [#/Vol] 8.32 10*3/uL Normal 3.70-11.00 [facility] Comment on above: Order Comment: Speci men Type: BLOOD SPECIMENOrdering Facility: [facility] Address: [address] [place] [address] Performed By: #### 5 8410-2 ####[facility] LABCLIA [id number] [place] [address] [place] [facility] Comprehensive metabolic 2000 panelon 01-28-2024 Albumin [Mass/Vol] 3.8 g/dL Low 3.9-4.9 [facility] Comment on above: Order Comment: Speci men Type: BLOOD SPECIMENOrdering Facility: [facility] Address: [address] [place] [address] Performed By: #### 2 4323-8 ####[facility] LABCLIA [id number] [place] [address] [place] ALP [Catalytic activity/Vol] 83 U/L Normal 38-113 [facility] Comment on above: Order Comment: Speci men Type: BLOOD SPECIMENOrdering Facility: [facility] Address: [address] [place] [address] Performed By: #### 2 4323-8 ####[facility] LABCLIA [id number] [place] [address] [place] ALT [Catalytic activity/Vol] 22 U/L Normal 10-54 [facility] Comment on above: Order Comment: Speci men Type: BLOOD SPECIMENOrdering Facility: [facility] Address: [address] [place] [address] Performed By: #### 2 4323-8 ####[facility] LABCLIA [id number] [place] [address] [place] Anion gap [Moles/Vol] 12 mmol/L Normal 8-15 [facility] Comment on above: Order Comment: Speci men Type: BLOOD SPECIMENOrdering Facility: [facility] Address: [address] [place] [address] Performed By: #### 2 4323-8 ####[facility] LABCLIA [id number] [place] [address] [place] AST [Catalytic activity/Vol] 34 U/L Normal 14-40 [facility] Comment on above: Order Comment: Speci men Type: BLOOD SPECIMENOrdering Facility: [facility] Address: [address] [place] [address] Performed By: #### 2 4323-8 ####[facility] LABCLIA [id number] [place] [address] [place] Bilirubin [Mass/Vol] 0.6 mg/dL Normal 0.2-1.3 [facility] Comment on above: Order Comment: Speci men Type: BLOOD SPECIMENOrdering Facility: [facility] Address: [address] [place] [address] Performed By: #### 2 4323-8 ####[facility] LABCLIA [id number] [place] [address] [place] Calcium [Mass/Vol] 9.1 mg/dL Normal 8.5-10.2 [facility] Comment on above: Order Comment: Speci men Type: BLOOD SPECIMENOrdering Facility: [facility] Address: [address] [place] [address] Performed By: #### 2 4323-8 ####[facility] LABCLIA [id number] [place] [address] [place] Chloride [Moles/Vol] 95 mmol/L Low 98-107 [facility] Comment on above: Order Comment: Speci men Type: BLOOD SPECIMENOrdering Facility: [facility] Address: [address] [place] [address] Performed By: #### 2 4323-8 ####[facility] LABCLIA [id number] [place] [address] [place] CO2 [Moles/Vol] 29 mmol/L Normal 22-30 [facility] Comment on above: Order Comment: Speci men Type: BLOOD SPECIMENOrdering Facility: [facility] Address: [address] [place] [address] Performed By: #### 2 4323-8 ####[facility] LABCLIA [id number] [place] [address] [place] Creatinine [Mass/Vol] 0.96 mg/dL Normal 0.73-1.22 [facility] Comment on above: Order Comment: Speci men Type: BLOOD SPECIMENOrdering Facility: [facility] Address: [address] [place] [address] Performed By: #### 2 4323-8 ####[facility] LABIA [id number] [place] [address] [place] Creatinine and Glomerular filtration rate.predicted panel (S/P/Bld) 87 mL/min/1.73m??? Normal >=60 [facility] Comment on above: Order Comment: Speci men Type: BLOOD SPECIMENOrdering Facility: [facility] Address: [address] [place] [address] Result Comment: Talisha mated Glomerular Filtration Rate [...] actual GFR. Performed By: #### 2 4323-8 ####[facility] LABCLIA [id number] [place] [id number] [place] Glucose [Mass/Vol] 91 mg/dL Normal 74-99 [facility] Comment on above: Order Comment: Jeison parry Type: BLOOD SPECIMENOrdering Facility: [facility] Address: [address] [place] [address] Result Comment: The [place] Diabetes [employer] (ADA) provides guidance for cutoff [...] Standards of Medical Care in Diabetes 2016, [place] [employer]. Diabetes Care. 2016.39(Suppl 1). Performed By: #### 2 4323-8 ####[facility] LABCLIA [id number] [place] [address] [place] Potassium [Moles/Vol] 3.8 mmol/L Normal 3.7-5.1 [facility] Comment on above: Order Comment: Jeison parry Type: BLOOD SPECIMENOrdering Facility: [facility] Address: [address] [place] [address] Performed By: #### 2 4323-8 ####[facility] LABCLIA [id number] [place] [address] [place] Protein [Mass/Vol] 6.5 g/dL Normal 6.3-8.0 [facility] Comment on above: Order Comment: Jeison parry Type: BLOOD SPECIMENOrdering Facility: [facility] Address: [address] [place], [place] [address] Performed By: #### 2 4323-8 ####[facility] LABCLIA [id number] [place] [address] [place] Sodium [Moles/Vol] 136 mmol/L Normal 136-144 [facility] Comment on above: Order Comment: Speci men Type: BLOOD SPECIMENOrdering Facility: [facility] Address: [address] [place] [address] Performed By: #### 2 4323-8 ####[facility] LABCLIA [id number] [place] [address] [place] Urea nitrogen [Mass/Vol] 32 mg/dL High 9-24 [facility] Comment on above: Order Comment: Speci men Type: BLOOD SPECIMENOrdering Facility: [facility] Address: [address] [place] [address] Performed By: #### 2 4323-8 ####[facility] LABCLIA [id number] [place] [address] [place] ECG COMPLETEon 01-28-2024 ECG COMPLETE Normal [facility] NURSING PROGon 01-28-2024 NURSING PROG Normal [facility] NURSING PROG Normal [facility] NURSING PROG Normal [facility] NURSING PROG Normal [facility] NURSING PROG Normal [facility] XR CHEST 2V FRONTAL/LATon XR CHEST 2V FRONTAL/LAT Normal [facility] ARTERIAL BLOOD GASESon 01-26 Base excess Calc (Bld) [Moles/Vol] 7 mmol/L High 0-2 [facility] Comment on above: Order Comment: Speci men Type: ARTERIAL BLOOD SPECIMENOrdering Facility: [facility] Address: [address] [place] [address] Performed By: #### A LLBG ####[facility] LABCLIA [id number] [place] [address] [place] Body temperature 98.6 [degF] Normal [facility] Comment on above: Order Comment: Speci men Type: ARTERIAL BLOOD SPECIMENOrdering Facility: [facility] Address: [address] [place] [address] Performed By: #### A LLBG ####[facility] LABCLIA [id number] [place] [address] [place] Calcium.ionized (Bld) [Mass/Vol] 1.14 mmol/L Normal 1.08-1.30 [facility] Comment on above: Order Comment: Speci men Type: ARTERIAL BLOOD SPECIMENOrdering Facility: [facility] Address: [address] [place] [address] Performed By: #### A LLBG ####[facility] LABCLIA [id number] [place] [address] [place] Calcium.ionized adjusted to pH 7.4 (BldA) [Moles/Vol] 1.18 mmol/L Normal 1.08-1.30 [facility] Comment on above: Order Comment: Speci men Type: ARTERIAL BLOOD SPECIMENOrdering Facility: [facility] Address: [address] [place] [address] Performed By: #### A LLBG ####[facility] LABCLIA [id number] [place] [address] [place] Carboxyhemoglobin (BldA) [Mass fraction] 2.2 % High 0.0-2.0 [facility] Comment on above: Order Comment: Speci men Type: ARTERIAL BLOOD SPECIMENOrdering Facility: [facility] Address: [address] [place] [address] Result Comment: Carb oxyhemoglobin Reference Range for Smokers: 2.0-8.0% Performed By: #### A LLBG ####[facility] LABCLIA [id number] [place] [address] [place] CO2 (Bld) [Partial pressure] 44 mm Hg Normal 36-46 [facility] Comment on above: Order Comment: Speci men Type: ARTERIAL BLOOD SPECIMENOrdering Facility: [facility] Address: [address] [place] [address] Performed By: #### A LLBG ####[facility] LABCLIA [id number] [place] [address] [place] Glucose [Mass/Vol] 103 mg/dL Normal 60-105 [facility] Comment on above: Order Comment: Speci men Type: ARTERIAL BLOOD SPECIMENOrdering Facility: [facility] Address: [address] [place] [address] Performed By: #### A LLBG ####[facility] LABCLIA [id number] [place] [address] [place] HCO3 (Bld) [Moles/Vol] 31 mmol/L High 22-26 [facility] Comment on above: Order Comment: Speci men Type: ARTERIAL BLOOD SPECIMENOrdering Facility: [facility] Address: [address] [place] [address] Performed By: #### A LLBG ####[facility] LABCLIA [id number] [place] [address] [place] Hematocrit (Bld) [Volume fraction] 30.4 % Low 39.0-51.0 [facility] Comment on above: Order Comment: Speci men Type: ARTERIAL BLOOD SPECIMENOrdering Facility: [facility] Address: [address] [place] [address] Performed By: #### A LLBG ####[facility] LABCLIA [id number] [place] [address] [place] Hemoglobin (Bld) [Mass/Vol] 9.8 g/dL Low 13.0-17.0 [facility] Comment on above: Order Comment: Speci men Type: ARTERIAL BLOOD SPECIMENOrdering Facility: [facility] Address: [address] [place] [address] Performed By: #### A LLBG ####[facility] LABCLIA [id number] [place] [address] [place] Lactate [Moles/Vol] 0.6 mmol/L Normal 0.5-2.2 [facility] Comment on above: Order Comment: Speci men Type: ARTERIAL BLOOD SPECIMENOrdering Facility: [facility] Address: [address] [place], [place] [address] Performed By: #### A LLBG ####[facility] LABCLIA [id number] [place] [id number] [place] LITERS 2 Liters/min Normal [facility] Comment on above: Order Comment: Speci men Type: ARTERIAL BLOOD SPECIMENOrdering Facility: [facility] Address: [address] [place], [place] [address] Performed By: #### A LLBG ####[facility] LABCLIA [id number] [place] [id number] [place] Methemoglobin (Bld) [Mass fraction] 0.5 % Normal 0.0-1.5 [facility] Comment on above: Order Comment: Speci men Type: ARTERIAL BLOOD SPECIMENOrdering Facility: [facility] Address: [address] [place] [address] Performed By: #### A LLBG ####[facility] LABCLIA [id number] [place] [address] [place] O2 THERAPY NC = Nasal Cannula Normal [facility] Comment on above: Order Comment: Speci men Type: ARTERIAL BLOOD SPECIMENOrdering Facility: [facility] Address: [address] [place], [place] [address] Performed By: #### A LLBG ####[facility] LABCLIA [id number] [place] [id number] [place] Oxygen (Bld) [Partial pressure] 185 mm Hg High 85-95 [facility] Comment on above: Order Comment: Speci men Type: ARTERIAL BLOOD SPECIMENOrdering Facility: [facility] Address: [address] [place], [place] [address] Performed By: #### A LLBG ####[facility] LABCLIA [id number] [address] [address] [place] Oxyhemoglobin (BldA) [Mass fraction] 97 % Normal 95-98 [facility] Comment on above: Order Comment: Speci men Type: ARTERIAL BLOOD SPECIMENOrdering Facility: [facility] Address: [address] [place] [address] Performed By: #### A LLBG ####[facility] LABCLIA [id number] [place] [address] [place] pH (Bld) 7.46 [pH] High 7.35-7.45 [facility] Comment on above: Order Comment: Speci men Type: ARTERIAL BLOOD SPECIMENOrdering Facility: [facility] Address: [address] [place] [address] Performed By: #### A LLBG ####[facility] LABCLIA [id number] [place] [address] [place] Potassium [Moles/Vol] 3.9 mmol/L Normal 3.5-5.0 [facility] Comment on above: Order Comment: Speci men Type: ARTERIAL BLOOD SPECIMENOrdering Facility: [facility] Address: [address] [place] [address] Performed By: #### A LLBG ####[facility] LABCLIA [id number] [place] [address] [place] Sodium [Moles/Vol] 134 mmol/L Low 136-144 [facility] Comment on above: Order Comment: Speci men Type: ARTERIAL BLOOD SPECIMENOrdering Facility: [facility] Address: [address] [place] [address] Performed By: #### A LLBG ####[facility] LABCLIA [id number] [place] [address] [place] Base excess Calc (Bld) [Moles/Vol] 6 mmol/L High 0-2 [facility] Comment on above: Order Comment: Speci men Type: ARTERIAL BLOOD SPECIMENOrdering Facility: [facility] Address: [address] [place] [address] Performed By: #### A LLBG ####[facility] LABCLIA [id number] [place] [address] [place] Body temperature 98.6 [degF] Normal [facility] Comment on above: Order Comment: Speci men Type: ARTERIAL BLOOD SPECIMENOrdering Facility: [facility] Address: [address] [place] [address] Performed By: #### A LLBG ####[facility] LABCLIA [id number] [place] [address] [place] Calcium.ionized (Bld) [Mass/Vol] 1.17 mmol/L Normal 1.08-1.30 [facility] Comment on above: Order Comment: Speci men Type: ARTERIAL BLOOD SPECIMENOrdering Facility: [facility] Address: [address] [place] [address] Performed By: #### A LLBG ####[facility] LABCLIA [id number] [place] [address] [place] Calcium.ionized adjusted to pH 7.4 (BldA) [Moles/Vol] 1.16 mmol/L Normal 1.08-1.30 [facility] Comment on above: Order Comment: Speci men Type: ARTERIAL BLOOD SPECIMENOrdering Facility: [facility] Address: [address] [place] [address] Performed By: #### A LLBG ####[facility] LABCLIA [id number] [place] [address] [place] Carboxyhemoglobin (BldA) [Mass fraction] 2.2 % High 0.0-2.0 [facility] Comment on above: Order Comment: Speci men Type: ARTERIAL BLOOD SPECIMENOrdering Facility: [facility] Address: [address] [place] [address] Result Comment: Carb oxyhemoglobin Reference Range for Smokers: 2.0-8.0% Performed By: #### A LLBG ####[facility] LABCLIA [id number] [address] [place] [address] [place] CO2 (Bld) [Partial pressure] 54 mm Hg High 36-46 [facility] Comment on above: Order Comment: Speci men Type: ARTERIAL BLOOD SPECIMENOrdering Facility: [facility] Address: [address] [place] [address] Performed By: #### A LLBG ####[facility] LABCLIA [id number] [place] [address] [place] Glucose [Mass/Vol] 102 mg/dL Normal 60-105 [facility] Comment on above: Order Comment: Speci men Type: ARTERIAL BLOOD SPECIMENOrdering Facility: [facility] Address: [address] [place] [address] Performed By: #### A LLBG ####[facility] LABCLIA [id number] [place] [address] [place] HCO3 (Bld) [Moles/Vol] 31 mmol/L High 22-26 [facility] Comment on above: Order Comment: Speci men Type: ARTERIAL BLOOD SPECIMENOrdering Facility: [facility] Address: [address] [place] [address] Performed By: #### A LLBG ####[facility] LABCLIA [id number] [place] [address] [place] Hematocrit (Bld) [Volume fraction] 29.8 % Low 39.0-51.0 [facility] Comment on above: Order Comment: Speci men Type: ARTERIAL BLOOD SPECIMENOrdering Facility: [facility] Address: [address] [place] [address] Performed By: #### A LLBG ####[facility] LABCLIA [id number] [place] [address] [place] Hemoglobin (Bld) [Mass/Vol] 9.6 g/dL Low 13.0-17.0 [facility] Comment on above: Order Comment: Speci men Type: ARTERIAL BLOOD SPECIMENOrdering Facility: [facility] Address: [address] [place] [address] Performed By: #### A LLBG ####[facility] LABCLIA [id number] [place] [address] [place] Lactate [Moles/Vol] 0.6 mmol/L Normal 0.5-2.2 [facility] Comment on above: Order Comment: Speci men Type: ARTERIAL BLOOD SPECIMENOrdering Facility: [facility] Address: [address] [place] [address] Performed By: #### A LLBG ####[facility] LABCLIA [id number] [place] [address] [place] LITERS 4 Liters/min Normal [facility] Comment on above: Order Comment: Speci men Type: ARTERIAL BLOOD SPECIMENOrdering Facility: [facility] Address: [address] [place] [address] Performed By: #### A LLBG ####[facility] LABCLIA [id number] [place] [address] [place] Methemoglobin (Bld) [Mass fraction] 0.9 % Normal 0.0-1.5 [facility] Comment on above: Order Comment: Speci men Type: ARTERIAL BLOOD SPECIMENOrdering Facility: [facility] Address: [address] [place] [address] Performed By: #### A LLBG ####[facility] LABCLIA [id number] [place] [address] [place] O2 THERAPY Positive Normal [facility] Comment on above: Order Comment: Speci men Type: ARTERIAL BLOOD SPECIMENOrdering Facility: [facility] Address: [address] [place] [address] Performed By: #### A LLBG ####[facility] LABCLIA [id number] [place] [address] [place] Oxygen (Bld) [Partial pressure] 142 mm Hg High 85-95 [facility] Comment on above: Order Comment: Speci men Type: ARTERIAL BLOOD SPECIMENOrdering Facility: [facility] Address: [address] [place] [address] Performed By: #### A LLBG ####[facility] LABCLIA [id number] [place] [address] [place] Oxyhemoglobin (BldA) [Mass fraction] 96 % Normal 95-98 [facility] Comment on above: Order Comment: Speci men Type: ARTERIAL BLOOD SPECIMENOrdering Facility: [facility] Address: [address] [place] [address] Performed By: #### A LLBG ####[facility] LABIA [id number] [place] [address] [place] pH (Bld) 7.39 [pH] Normal 7.35-7.45 [facility] Comment on above: Order Comment: Speci men Type: ARTERIAL BLOOD SPECIMENOrdering Facility: [facility] Address: [address] [place] [address] Performed By: #### A LLBG ####[facility] LABCLIA [id number] [place] [address] [place] Potassium [Moles/Vol] 4.1 mmol/L Normal 3.5-5.0 [facility] Comment on above: Order Comment: Speci men Type: ARTERIAL BLOOD SPECIMENOrdering Facility: [facility] Address: [address] [place] [address] Performed By: #### A LLBG ####[facility] LABCLIA [id number] [place] [address] [place] Sodium [Moles/Vol] 136 mmol/L Normal 136-144 [facility] Comment on above: Order Comment: Speci men Type: ARTERIAL BLOOD SPECIMENOrdering Facility: [facility] Address: [address] [place] [address] Performed By: #### A LLBG ####[facility] LABCLIA [id number] [place] [address] [place] Base excess Calc (Bld) [Moles/Vol] 6 mmol/L High 0-2 [facility] Comment on above: Order Comment: Speci men Type: ARTERIAL BLOOD SPECIMENOrdering Facility: [facility] Address: [address] [place] [address] Performed By: #### A LLBG ####[facility] LABIA [id number] [place] [address] [place] Body temperature 98.6 [degF] Normal [facility] Comment on above: Order Comment: Speci men Type: ARTERIAL BLOOD SPECIMENOrdering Facility: [facility] Address: [address] [place] [address] Performed By: #### A LLBG ####[facility] [id number] [place] [address] [place] Calcium.ionized (Bld) [Mass/Vol] 1.17 mmol/L Normal 1.08-1.30 [facility] Comment on above: Order Comment: Speci men Type: ARTERIAL BLOOD SPECIMENOrdering Facility: [facility] Address: [address] [place] [address] Performed By: #### A LLBG ####[facility] [id number] [place] [address] [place] Calcium.ionized adjusted to pH 7.4 (BldA) [Moles/Vol] 1.16 mmol/L Normal 1.08-1.30 [facility] Comment on above: Order Comment: Speci men Type: ARTERIAL BLOOD SPECIMENOrdering Facility: [facility] Address: [address] [place] [address] Performed By: #### A LLBG ####[facility] LABIA [id number] [place] [address] [place] Carboxyhemoglobin (BldA) [Mass fraction] 2.3 % High 0.0-2.0 [facility] Comment on above: Order Comment: Speci men Type: ARTERIAL BLOOD SPECIMENOrdering Facility: [facility] Address: [address] [place] [address] Result Comment: Carb oxyhemoglobin Reference Range for Smokers: 2.0-8.0% Performed By: #### A LLBG ####[facility] LABCLIA [id number] [place] [address] [place] CO2 (Bld) [Partial pressure] 53 mm Hg High 36-46 [facility] Comment on above: Order Comment: Speci men Type: ARTERIAL BLOOD SPECIMENOrdering Facility: [facility] Address: [address] [place] [address] Performed By: #### A LLBG ####[facility] LABCLIA [id number] [place] [address] [place] Glucose [Mass/Vol] 104 mg/dL Normal 60-105 [facility] Comment on above: Order Comment: Speci men Type: ARTERIAL BLOOD SPECIMENOrdering Facility: [facility] Address: [address] [place] [address] Performed By: #### A LLBG ####[facility] LABCLIA [id number] [place] [address] [place] HCO3 (Bld) [Moles/Vol] 32 mmol/L High 22-26 [facility] Comment on above: Order Comment: Speci men Type: ARTERIAL BLOOD SPECIMENOrdering Facility: [facility] Address: [address] [place] [address] Performed By: #### A LLBG ####[facility] LABCLIA [id number] [place] [address] [place] Hematocrit (Bld) [Volume fraction] 29.7 % Low 39.0-51.0 [facility] Comment on above: Order Comment: Speci men Type: ARTERIAL BLOOD SPECIMENOrdering Facility: [facility] Address: [address], [place] [address] Performed By: #### A LLBG ####[facility] LABCLIA [id number] [place] [address] [place] Hemoglobin (Bld) [Mass/Vol] 9.6 g/dL Low 13.0-17.0 [facility] Comment on above: Order Comment: Speci men Type: ARTERIAL BLOOD SPECIMENOrdering Facility: [facility] Address: [address] [place] [address] Performed By: #### A LLBG ####[facility] LABCLIA [id number] [place] [address] [place] Lactate [Moles/Vol] 0.7 mmol/L Normal 0.5-2.2 [facility] Comment on above: Order Comment: Speci men Type: ARTERIAL BLOOD SPECIMENOrdering Facility: [facility] Address: [address] [place] [address] Performed By: #### A LLBG ####[facility] LABIA [id number] [place] [address] [place] LITERS 4 Liters/min Normal [facility] Comment on above: Order Comment: Speci men Type: ARTERIAL BLOOD SPECIMENOrdering Facility: [facility] Address: [address] [place] [address] Performed By: #### A LLBG ####[facility] LABIA [id number] [place] [address] [place] Methemoglobin (Bld) [Mass fraction] 0.9 % Normal 0.0-1.5 [facility] Comment on above: Order Comment: Speci men Type: ARTERIAL BLOOD SPECIMENOrdering Facility: [facility] Address: [address] [place] [address] Performed By: #### A LLBG ####[facility] LABIA [id number] [place] [address] [place] O2 THERAPY Positive Normal [facility] Comment on above: Order Comment: Speci men Type: ARTERIAL BLOOD SPECIMENOrdering Facility: [facility] Address: [address] [place] [address] Performed By: #### A LLBG ####[facility] LABCLIA [id number] [place] [address] [place] Oxygen (Bld) [Partial pressure] 160 mm Hg High 85-95 [facility] Comment on above: Order Comment: Speci men Type: ARTERIAL BLOOD SPECIMENOrdering Facility: [facility] Address: [address] [place] [address] Performed By: #### A LLBG ####[facility] LABCLIA [id number] [place] [address] [place] Oxyhemoglobin (BldA) [Mass fraction] 97 % Normal 95-98 [facility] Comment on above: Order Comment: Speci men Type: ARTERIAL BLOOD SPECIMENOrdering Facility: [facility] Address: [address] [place] [address] Performed By: #### A LLBG ####[facility] LABCLIA [id number] [place] [address] [place] pH (Bld) 7.40 [pH] Normal 7.35-7.45 [facility] Comment on above: Order Comment: Speci men Type: ARTERIAL BLOOD SPECIMENOrdering Facility: [facility] Address: [address] [place] [address] Performed By: #### A LLBG ####[facility] LABCLIA [id number] [place] [address] [place] Potassium [Moles/Vol] 4.2 mmol/L Normal 3.5-5.0 [facility] Comment on above: Order Comment: Speci men Type: ARTERIAL BLOOD SPECIMENOrdering Facility: [facility] Address: [address] [place] [address] Performed By: #### A LLBG ####[facility] LABCLIA [id number] [place] [address] [place] Sodium [Moles/Vol] 136 mmol/L Normal 136-144 [facility] Comment on above: Order Comment: Speci men Type: ARTERIAL BLOOD SPECIMENOrdering Facility: [facility] Address: [address] [place] [address] Performed By: #### A LLBG ####[facility] LABCLIA [id number] [place] [address] [place] CBC panel Auto (Bld)on 01-26 Erythrocyte distribution width (RBC) [Ratio] 14.6 % Normal 11.5-15.0 [facility] Comment on above: Order Comment: Speci men Type: BLOOD SPECIMENOrdering Facility: [facility] Address: [address] [place] [address] Performed By: #### 5 8410-2 ####[facility] LABIA [id number] [address] [place] Hematocrit (Bld) [Volume fraction] 29.9 % Low 39.0-51.0 [facility] Comment on above: Order Comment: Speci men Type: BLOOD SPECIMENOrdering Facility: [facility] Address: [address] [place] [address] Performed By: #### 5 8410-2 ####[facility] LABCLIA [id number] [place] [address] [place] Hemoglobin (Bld) [Mass/Vol] 9.7 g/dL Low 13.0-17.0 [facility] Comment on above: Order Comment: Speci men Type: BLOOD SPECIMENOrdering Facility: [facility] Address: [address] [place] [address] Performed By: #### 5 8410-2 ####[facility] LABCLIA [id number] [place] [address] [place] MCH (RBC) [Entitic mass] 28.2 pg Normal 26.0-34.0 [facility] Comment on above: Order Comment: Speci men Type: BLOOD SPECIMENOrdering Facility: [facility] Address: [address] [place] [address] Performed By: #### 5 8410-2 ####[facility] LABCLIA [id number] [place] [address] [place] MCHC (RBC) [Mass/Vol] 32.4 g/dL Normal 30.5-36.0 [facility] Comment on above: Order Comment: Speci men Type: BLOOD SPECIMENOrdering Facility: [facility] Address: [address] [place] [address] Performed By: #### 5 8410-2 ####[facility] LABIA [id number] [place] [address] [place] MCV (RBC) [Entitic vol] 86.9 fL Normal 80.0-100.0 [facility] Comment on above: Order Comment: Speci men Type: BLOOD SPECIMENOrdering Facility: [facility] Address: [address] [place] [address] Performed By: #### 5 8410-2 ####[facility] LABIA [id number] [place] [address] [place] Nucleated RBC (Bld) [#/Vol] 10*3/uL Normal <0.01 [facility] Comment on above: Order Comment: Speci men Type: BLOOD SPECIMENOrdering Facility: [facility] Address: [address] [place] [address] Performed By: #### 5 8410-2 ####[facility] LABIA [id number] [place] [address] [place] Platelet mean volume (Bld) [Entitic vol] 11.3 fL Normal 9.0-12.7 [facility] Comment on above: Order Comment: Speci men Type: BLOOD SPECIMENOrdering Facility: [facility] Address: [address] [place] [address] Performed By: #### 5 8410-2 ####[facility] LABCLIA [id number] [place] [address] [place] Platelets (Bld) [#/Vol] 122 10*3/uL Low 150-400 [facility] Comment on above: Order Comment: Speci men Type: BLOOD SPECIMENOrdering Facility: [facility] Address: [address] [place] [address] Result Comment: No c lot detected.Results checked and verified. Performed By: #### 5 8410-2 ####[facility] LABCLIA [id number] [place] [address] [place] RBC (Bld) [#/Vol] 3.44 10*6/uL Low 4.20-6.00 [facility] Comment on above: Order Comment: Speci men Type: BLOOD SPECIMENOrdering Facility: [facility] Address: [address] [place] [address] Performed By: #### 5 8410-2 ####[facility] LABCLIA [id number] [place] [address] [place] WBC (Bld) [#/Vol] 9.60 10*3/uL Normal 3.70-11.00 [facility] Comment on above: Order Comment: Speci men Type: BLOOD SPECIMENOrdering Facility: [facility] Address: [address] [place] [address] Performed By: #### 5 8410-2 ####[facility] LABCLIA [id number] [place] [id number] [place] Comprehensive metabolic 2000 panelon 01-27-2024 Albumin [Mass/Vol] 3.9 g/dL Normal 3.9-4.9 [facility] Comment on above: Order Comment: Speci men Type: BLOOD SPECIMENOrdering Facility: [facility] Address: [address] [place] [address] Performed By: #### 2 4323-8 ####[facility] LABCLIA [id number] [place] [address] [place] ALP [Catalytic activity/Vol] 46 U/L Normal 38-113 [facility] Comment on above: Order Comment: Speci men Type: BLOOD SPECIMENOrdering Facility: [facility] Address: [address] [place] [address] Performed By: #### 2 4323-8 ####[facility] LABCLIA [id number] [place] [address] [place] ALT [Catalytic activity/Vol] 17 U/L Normal 10-54 [facility] Comment on above: Order Comment: Speci men Type: BLOOD SPECIMENOrdering Facility: [facility] Address: [address] [place] [address] Performed By: #### 2 4323-8 ####[facility] LABCLIA [id number] [place] [address] [place] Anion gap [Moles/Vol] 14 mmol/L Normal 8-15 [facility] Comment on above: Order Comment: Speci men Type: BLOOD SPECIMENOrdering Facility: [facility] Address: [address] [place] [address] Performed By: #### 2 4323-8 ####[facility] LABCLIA [id number] [place] [address] [place] AST [Catalytic activity/Vol] 52 U/L High 14-40 [facility] Comment on above: Order Comment: Speci men Type: BLOOD SPECIMENOrdering Facility: [facility] Address: [address] [place] [address] Performed By: #### 2 4323-8 ####[facility] LABCLIA [id number] [place] [address] [place] Bilirubin [Mass/Vol] 0.6 mg/dL Normal 0.2-1.3 [facility] Comment on above: Order Comment: Speci men Type: BLOOD SPECIMENOrdering Facility: [facility] Address: [address] [place] [address] Performed By: #### 2 4323-8 ####[facility] LABCLIA [id number] [address] [address] [place] Calcium [Mass/Vol] 8.9 mg/dL Normal 8.5-10.2 [facility] Comment on above: Order Comment: Speci men Type: BLOOD SPECIMENOrdering Facility: [facility] Address: [address] [place], [place] [address] Performed By: #### 2 4323-8 ####[facility] LABCLIA [id number] [place] [address] [place] Chloride [Moles/Vol] 97 mmol/L Low 98-107 [facility] Comment on above: Order Comment: Speci men Type: BLOOD SPECIMENOrdering Facility: [facility] Address: [address] [place], [place] [address] Performed By: #### 2 4323-8 ####[facility] LABCLIA [id number] [place] [address] [place] CO2 [Moles/Vol] 27 mmol/L Normal 22-30 [facility] Comment on above: Order Comment: Speci men Type: BLOOD SPECIMENOrdering Facility: [facility] Address: [address] [place], [place] [address] Performed By: #### 2 4323-8 ####[facility] LABCLIA [id number] [place] [id number] [place] Creatinine [Mass/Vol] 0.95 mg/dL Normal 0.73-1.22 [facility] Comment on above: Order Comment: Speci men Type: BLOOD SPECIMENOrdering Facility: [facility] Address: [address] [place] [address] Performed By: #### 2 4323-8 ####[facility] LABCLIA [id number] [place] [address] [place] Creatinine and Glomerular filtration rate.predicted panel (S/P/Bld) 88 mL/min/1.73m??? Normal >=60 [facility] Comment on above: Order Comment: Jeison parry Type: BLOOD SPECIMENOrdering Facility: [facility] Address: [address] [place] [address] Result Comment: Talisha mated Glomerular Filtration Rate [...] actual GFR. Performed By: #### 2 4323-8 ####[facility] LABIA [id number] [place] [address] [place] Glucose [Mass/Vol] 96 mg/dL Normal 74-99 [facility] Comment on above: Order Comment: Jeison parry Type: BLOOD SPECIMENOrdering Facility: [facility] Address: [address] [place] [address] Result Comment: The [place] [employer] (ADA) provides guidance for cutoff [...] Standards of Medical Care in Diabetes 2016, [place] [employer]. Diabetes Care. 2016.39(Suppl 1). Performed By: #### 2 4323-8 ####[facility] LABIA [id number] [place] [address] [place] Potassium [Moles/Vol] 4.0 mmol/L Normal 3.7-5.1 [facility] Comment on above: Order Comment: Speci men Type: BLOOD SPECIMENOrdering Facility: [facility] Address: [address] [place], [place] [address] Performed By: #### 2 4323-8 ####[facility] LABCLIA [id number] [place] [address] [place] Protein [Mass/Vol] 6.4 g/dL Normal 6.3-8.0 [facility] Comment on above: Order Comment: Speci men Type: BLOOD SPECIMENOrdering Facility: [facility] Address: [address] [place] [address] Performed By: #### 2 4323-8 ####[facility] LABCLIA [id number] [place] [address] [place] Sodium [Moles/Vol] 138 mmol/L Normal 136-144 [facility] Comment on above: Order Comment: Speci men Type: BLOOD SPECIMENOrdering Facility: [facility] Address: [address] [place], [place] [address] Performed By: #### 2 4323-8 ####[facility] LABCLIA [id number] [place] [address] [place] Urea nitrogen [Mass/Vol] 35 mg/dL High 9-24 [facility] Comment on above: Order Comment: Speci men Type: BLOOD SPECIMENOrdering Facility: [facility] Address: [address] [place] [address] Performed By: #### 2 4323-8 ####[facility] LABCLIA [id number] [place] [id number] [place] MIG92ix 01-27-2024 ECG01 Normal [facility] Fibrinogen PPP-mCncon 2023 Fibrinogen Coag (PPP) [Mass/Vol] 618 mg/dL High 200-400 [facility] Comment on above: Order Comment: Speci men Type: BLOOD SPECIMENOrdering Facility: [facility] Address: [address] [place] [id number] Performed By: #### 1 4979-9, 3255-7, 16502-0 ####[facility] LABCLIA [id number] [place] [address] [place] PT panel Coag (PPP)on 2023 INR Coag (PPP) [Relative time] 1.0 {INR} Normal 0.9-1.3 [facility] Comment on above: Order Comment: Jeison brinda Type: BLOOD SPECIMENOrdering Facility: [facility] Address: [address] [place] [address] Result Comment: Indu min K Antagonist (VKA) Therapeutic Range: INR 2 to 3 (Target INR of 2.5)Note: For patients treated with VKA drugs, such as warfarin, the [place] [employer] 2012 Guideline recommends [...] al. Chest 2012, 141:7S-47SNishimura RA, et al. [facility] 2017, 70: 252-289 Performed By: #### 1 4979-9, 3255-7, 62766-8 ####[facility] LABIA [id number] [place] [id number] [place] PT Coag (PPP) [Time] 10.5 s Normal 9.7-13.0 [facility] Comment on above: Order Comment: Speci men Type: BLOOD SPECIMENOrdering Facility: [facility] Address: [address] [place] [address] Performed By: #### 1 4979-9, 3255-7, 11713-7 ####[facility] LABCLIA [id number] [place] [address] [place] TYPE + SCREENon 01-27-2024 ABO O Normal [facility] Comment on above: Order Comment: Speci men Type: BLOOD SPECIMENOrdering Facility: [facility] Address: [address] [place] [address] Performed By: #### T SCR ####[facility] BLOOD BANKCLIA [id number] [place] [address] [place] Rh Nom (Bld) Positive Normal [facility] Comment on above: Order Comment: Speci men Type: BLOOD SPECIMENOrdering Facility: [facility] Address: [address] [place] [address] Performed By: #### T SCR ####[facility] BLOOD BANKCLIA [id number] [place] [address] [place] TYPE AND SCREEN EXPIRATION 01/30/2024 23:59 Normal [facility] Comment on above: Order Comment: Speci men Type: BLOOD SPECIMENOrdering Facility: [facility] Address: [address] [place] [address] Performed By: #### T SCR ####[facility] BLOOD BANKCLIA [id number] [place] [address] [place] XR CHEST 1V FRONTAL PORTon 1 XR CHEST 1V FRONTAL PORT Normal [facility] aPTT PPPon 01-27-2024 aPTT Coag (PPP) [Time] 27.6 s Normal 23.0-32.4 [facility] Comment on above: Order Comment: Speci men Type: BLOOD SPECIMENOrdering Facility: [facility] Address: [address] [place] [address] Performed By: #### 1 4979-9, 3255-7, 66826-1 ####[facility] LABCLIA [id number] [place] [address] [place] ARTERIAL BLOOD GASESon 01-25 Base excess Calc (Bld) [Moles/Vol] 6 mmol/L High 0-2 [facility] Comment on above: Order Comment: Speci men Type: ARTERIAL BLOOD SPECIMENOrdering Facility: [facility] Address: [address] [place] [address] Performed By: #### A LLBG ####[facility] LABIA [id number] [place] [address] [place] Body temperature 98.6 [degF] Normal [facility] Comment on above: Order Comment: Speci men Type: ARTERIAL BLOOD SPECIMENOrdering Facility: [facility] Address: [address] [place] [address] Performed By: #### A LLBG ####[facility] [id number] [place] [address] [place] Calcium.ionized (Bld) [Mass/Vol] 1.20 mmol/L Normal 1.08-1.30 [facility] Comment on above: Order Comment: Speci men Type: ARTERIAL BLOOD SPECIMENOrdering Facility: [facility] Address: [address] [place] [address] Performed By: #### A LLBG ####[facility] [id number] [place] [address] [place] Calcium.ionized adjusted to pH 7.4 (BldA) [Moles/Vol] 1.19 mmol/L Normal 1.08-1.30 [facility] Comment on above: Order Comment: Speci men Type: ARTERIAL BLOOD SPECIMENOrdering Facility: [facility] Address: [address] [place] [address] Performed By: #### A LLBG ####[facility] [id number] [place] [address] [place] Carboxyhemoglobin (BldA) [Mass fraction] 2.3 % High 0.0-2.0 [facility] Comment on above: Order Comment: Speci men Type: ARTERIAL BLOOD SPECIMENOrdering Facility: [facility] Address: [address] [place] [address] Result Comment: Carb oxyhemoglobin Reference Range for Smokers: 2.0-8.0% Performed By: #### A LLBG ####[facility] LABCLIA [id number] [place] [address] [place] CO2 (Bld) [Partial pressure] 51 mm Hg High 36-46 [facility] Comment on above: Order Comment: Speci men Type: ARTERIAL BLOOD SPECIMENOrdering Facility: [facility] Address: [address] [place] [address] Performed By: #### A LLBG ####[facility] LABCLIA [id number] [place] [address] [place] Glucose [Mass/Vol] 103 mg/dL Normal 60-105 [facility] Comment on above: Order Comment: Speci men Type: ARTERIAL BLOOD SPECIMENOrdering Facility: [facility] Address: [address] [place] [address] Performed By: #### A LLBG ####[facility] LABCLIA [id number] [place] [address] [place] HCO3 (Bld) [Moles/Vol] 31 mmol/L High 22-26 [facility] Comment on above: Order Comment: Speci men Type: ARTERIAL BLOOD SPECIMENOrdering Facility: [facility] Address: [address] [place] [address] Performed By: #### A LLBG ####[facility] LABCLIA [id number] [place] [address] [place] Hematocrit (Bld) [Volume fraction] 30.3 % Low 39.0-51.0 [facility] Comment on above: Order Comment: Speci men Type: ARTERIAL BLOOD SPECIMENOrdering Facility: [facility] Address: [address] [place] [address] Performed By: #### A LLBG ####[facility] LABCLIA [id number] [place] [address] [place] Hemoglobin (Bld) [Mass/Vol] 9.8 g/dL Low 13.0-17.0 [facility] Comment on above: Order Comment: Speci men Type: ARTERIAL BLOOD SPECIMENOrdering Facility: [facility] Address: [address] [place] [address] Performed By: #### A LLBG ####[facility] LABCLIA [id number] [place] [address] [place] Lactate [Moles/Vol] 0.6 mmol/L Normal 0.5-2.2 [facility] Comment on above: Order Comment: Speci men Type: ARTERIAL BLOOD SPECIMENOrdering Facility: [facility] Address: [address] [place] [address] Performed By: #### A LLBG ####[facility] LABCLIA [id number] [place] [address] [place] LITERS 2 Liters/min Normal [facility] Comment on above: Order Comment: Speci men Type: ARTERIAL BLOOD SPECIMENOrdering Facility: [facility] Address: [address] [place] [address] Performed By: #### A LLBG ####[facility] LABCLIA [id number] [place] [address] [place] Methemoglobin (Bld) [Mass fraction] 0.8 % Normal 0.0-1.5 [facility] Comment on above: Order Comment: Speci men Type: ARTERIAL BLOOD SPECIMENOrdering Facility: [facility] Address: [address] [place] [address] Performed By: #### A LLBG ####[facility] LABCLIA [id number] [place] [address] [place] O2 THERAPY Positive Normal [facility] Comment on above: Order Comment: Speci men Type: ARTERIAL BLOOD SPECIMENOrdering Facility: [facility] Address: [address] [place] [address] Performed By: #### A LLBG ####[facility] LABCLIA [id number] [place] [address] [place] Oxygen (Bld) [Partial pressure] 70 mm Hg Low 85-95 [facility] Comment on above: Order Comment: Speci men Type: ARTERIAL BLOOD SPECIMENOrdering Facility: [facility] Address: [address] [place] [address] Performed By: #### A LLBG ####[facility] LABCLIA [id number] [place] [address] [place] Oxyhemoglobin (BldA) [Mass fraction] 92 % Low 95-98 [facility] Comment on above: Order Comment: Speci men Type: ARTERIAL BLOOD SPECIMENOrdering Facility: [facility] Address: [address] [place] [address] Performed By: #### A LLBG ####[facility] LABCLIA [id number] [place] [address] [place] pH (Bld) 7.40 [pH] Normal 7.35-7.45 [facility] Comment on above: Order Comment: Speci men Type: ARTERIAL BLOOD SPECIMENOrdering Facility: [facility] Address: [address] [place] [address] Performed By: #### A LLBG ####[facility] LABCLIA [id number] [place] [address] [place] Potassium [Moles/Vol] 3.9 mmol/L Normal 3.5-5.0 [facility] Comment on above: Order Comment: Speci men Type: ARTERIAL BLOOD SPECIMENOrdering Facility: [facility] Address: [address] [place] [address] Performed By: #### A LLBG ####[facility] LABCLIA [id number] [place] [address] [place] Sodium [Moles/Vol] 137 mmol/L Normal 136-144 [facility] Comment on above: Order Comment: Speci men Type: ARTERIAL BLOOD SPECIMENOrdering Facility: [facility] Address: [address] [place] [address] Performed By: #### A LLBG ####[facility] LABCLIA [id number] [place] [address] [place] Base excess Calc (Bld) [Moles/Vol] 6 mmol/L High 0-2 [facility] Comment on above: Order Comment: Speci men Type: ARTERIAL BLOOD SPECIMENOrdering Facility: [facility] Address: [address] [place] [address] Performed By: #### A LLBG ####[facility] LABCLIA [id number] [place] [address] [place] Body temperature 98.6 [degF] Normal [facility] Comment on above: Order Comment: Speci men Type: ARTERIAL BLOOD SPECIMENOrdering Facility: [facility] Address: [address] [place] [address] Performed By: #### A LLBG ####[facility] LABCLIA [id number] [place] [address] [place] Calcium.ionized (Bld) [Mass/Vol] 1.18 mmol/L Normal 1.08-1.30 [facility] Comment on above: Order Comment: Speci men Type: ARTERIAL BLOOD SPECIMENOrdering Facility: [facility] Address: [address] [place] [address] Performed By: #### A LLBG ####[facility] LABCLIA [id number] [place] [address] [place] Calcium.ionized adjusted to pH 7.4 (BldA) [Moles/Vol] 1.18 mmol/L Normal 1.08-1.30 [facility] Comment on above: Order Comment: Speci men Type: ARTERIAL BLOOD SPECIMENOrdering Facility: [facility] Address: [address] [place] [address] Performed By: #### A LLBG ####[facility] LABCLIA [id number] [place] [address] [place] Carboxyhemoglobin (BldA) [Mass fraction] 2.0 % Normal 0.0-2.0 [facility] Comment on above: Order Comment: Speci men Type: ARTERIAL BLOOD SPECIMENOrdering Facility: [facility] Address: [address] [place] [address] Result Comment: Carb oxyhemoglobin Reference Range for Smokers: 2.0-8.0% Performed By: #### A LLBG ####[facility] LABCLIA [id number] [place] [address] [place] CO2 (Bld) [Partial pressure] 50 mm Hg High 36-46 [facility] Comment on above: Order Comment: Speci men Type: ARTERIAL BLOOD SPECIMENOrdering Facility: [facility] Address: [address] [place] [address] Performed By: #### A LLBG ####[facility] LABCLIA [id number] [place] [address] [place] Glucose [Mass/Vol] 111 mg/dL High 60-105 [facility] Comment on above: Order Comment: Speci men Type: ARTERIAL BLOOD SPECIMENOrdering Facility: [facility] Address: [address] [place] [address] Performed By: #### A LLBG ####[facility] LABCLIA [id number] [place] [address] [place] HCO3 (Bld) [Moles/Vol] 31 mmol/L High 22-26 [facility] Comment on above: Order Comment: Speci men Type: ARTERIAL BLOOD SPECIMENOrdering Facility: [facility] Address: [address] [place] [address] Performed By: #### A LLBG ####[facility] LABCLIA [id number] [place] [address] [place] Hematocrit (Bld) [Volume fraction] 29.6 % Low 39.0-51.0 [facility] Comment on above: Order Comment: Speci men Type: ARTERIAL BLOOD SPECIMENOrdering Facility: [facility] Address: [address] [place] [address] Performed By: #### A LLBG ####[facility] LABIA [id number] [place] [address] [place] Hemoglobin (Bld) [Mass/Vol] 9.6 g/dL Low 13.0-17.0 [facility] Comment on above: Order Comment: Speci men Type: ARTERIAL BLOOD SPECIMENOrdering Facility: [facility] Address: [address] [place] [address] Performed By: #### A LLBG ####[facility] LABIA [id number] [place] [address] [place] Lactate [Moles/Vol] 0.6 mmol/L Normal 0.5-2.2 [facility] Comment on above: Order Comment: Speci men Type: ARTERIAL BLOOD SPECIMENOrdering Facility: [facility] Address: [address] [place] [address] Performed By: #### A LLBG ####[facility] LABCLIA [id number] [place] [address] [place] LITERS 2 Liters/min Normal [facility] Comment on above: Order Comment: Speci men Type: ARTERIAL BLOOD SPECIMENOrdering Facility: [facility] Address: [address] [place] [address] Performed By: #### A LLBG ####[facility] LABCLIA [id number] [place] [address] [place] Methemoglobin (Bld) [Mass fraction] 0.7 % Normal 0.0-1.5 [facility] Comment on above: Order Comment: Speci men Type: ARTERIAL BLOOD SPECIMENOrdering Facility: [facility] Address: [address] [place] [address] Performed By: #### A LLBG ####[facility] LABCLIA [id number] [place] [address] [place] O2 THERAPY NC = Nasal Cannula Normal [facility] Comment on above: Order Comment: Speci men Type: ARTERIAL BLOOD SPECIMENOrdering Facility: [facility] Address: [address] [place] [address] Performed By: #### A LLBG ####[facility] LABCLIA [id number] [place] [address] [place] Oxygen (Bld) [Partial pressure] 138 mm Hg High 85-95 [facility] Comment on above: Order Comment: Speci men Type: ARTERIAL BLOOD SPECIMENOrdering Facility: [facility] Address: [address] [place] [address] Performed By: #### A LLBG ####[facility] LABCLIA [id number] [place] [address] [place] Oxyhemoglobin (BldA) [Mass fraction] 97 % Normal 95-98 [facility] Comment on above: Order Comment: Speci men Type: ARTERIAL BLOOD SPECIMENOrdering Facility: [facility] Address: [address] [place] [address] Performed By: #### A LLBG ####[facility] LABCLIA [id number] [place] [address] [place] pH (Bld) 7.41 [pH] Normal 7.35-7.45 [facility] Comment on above: Order Comment: Speci men Type: ARTERIAL BLOOD SPECIMENOrdering Facility: [facility] Address: [address] [place] [address] Performed By: #### A LLBG ####[facility] LABCLIA [id number] [place] [address] [place] Potassium [Moles/Vol] 4.1 mmol/L Normal 3.5-5.0 [facility] Comment on above: Order Comment: Speci men Type: ARTERIAL BLOOD SPECIMENOrdering Facility: [facility] Address: [address] [place] [address] Performed By: #### A LLBG ####[facility] LABCLIA [id number] [place] [address] [place] Sodium [Moles/Vol] 136 mmol/L Normal 136-144 [facility] Comment on above: Order Comment: Speci men Type: ARTERIAL BLOOD SPECIMENOrdering Facility: [facility] Address: [address] [place] [address] Performed By: #### A LLBG ####[facility] LABCLIA [id number] [place] [address] [place] Base excess Calc (Bld) [Moles/Vol] 6 mmol/L High 0-2 [facility] Comment on above: Order Comment: Speci men Type: ARTERIAL BLOOD SPECIMENOrdering Facility: [facility] Address: [address] [place] [address] Performed By: #### A LLBG ####[facility] LABIA [id number] [place] [address] [place] Body temperature 98.42 [degF] Normal [facility] Comment on above: Order Comment: Speci men Type: ARTERIAL BLOOD SPECIMENOrdering Facility: [facility] Address: [address] [place] [address] Performed By: #### A LLBG ####[facility] LABCLIA [id number] [place] [address] [place] Calcium.ionized (Bld) [Mass/Vol] 1.16 mmol/L Normal 1.08-1.30 [facility] Comment on above: Order Comment: Speci men Type: ARTERIAL BLOOD SPECIMENOrdering Facility: [facility] Address: [address] [place] [address] Performed By: #### A LLBG ####[facility] LABCLIA [id number] [place] [address] [place] Calcium.ionized adjusted to pH 7.4 (BldA) [Moles/Vol] 1.17 mmol/L Normal 1.08-1.30 [facility] Comment on above: Order Comment: Speci men Type: ARTERIAL BLOOD SPECIMENOrdering Facility: [facility] Address: [address] [place] [address] Performed By: #### A LLBG ####[facility] LABCLIA [id number] [place] [address] [place] Carboxyhemoglobin (BldA) [Mass fraction] 1.6 % Normal 0.0-2.0 [facility] Comment on above: Order Comment: Speci men Type: ARTERIAL BLOOD SPECIMENOrdering Facility: [facility] Address: [address] [place] [address] Result Comment: Carb oxyhemoglobin Reference Range for Smokers: 2.0-8.0% Performed By: #### A LLBG ####[facility] LABCLIA [id number] [place] [address] [place] CO2 (Bld) [Partial pressure] 48 mm Hg High 36-46 [facility] Comment on above: Order Comment: Speci men Type: ARTERIAL BLOOD SPECIMENOrdering Facility: [facility] Address: [address] [place] [address] Performed By: #### A LLBG ####[facility] LABCLIA [id number] [place] [address] [place] CO2 adjusted to patient's actual temperature (Bld) [Partial pressure] 47 mmHg High 36-46 [facility] Comment on above: Order Comment: Speci men Type: ARTERIAL BLOOD SPECIMENOrdering Facility: [facility] Address: [address] [place] [address] Performed By: #### A LLBG ####[facility] LABCLIA [id number] [place] [address] [place] Glucose [Mass/Vol] 110 mg/dL High 60-105 [facility] Comment on above: Order Comment: Speci men Type: ARTERIAL BLOOD SPECIMENOrdering Facility: [facility] Address: [address] [place] [address] Performed By: #### A LLBG ####[facility] LABCLIA [id number] [place] [address] [place] HCO3 (Bld) [Moles/Vol] 31 mmol/L High 22-26 [facility] Comment on above: Order Comment: Speci men Type: ARTERIAL BLOOD SPECIMENOrdering Facility: [facility] Address: [address] [place] [address] Performed By: #### A LLBG ####[facility] LABCLIA [id number] [place] [address] [place] Hematocrit (Bld) [Volume fraction] 31.3 % Low 39.0-51.0 [facility] Comment on above: Order Comment: Speci men Type: ARTERIAL BLOOD SPECIMENOrdering Facility: [facility] Address: [address] [place] [address] Performed By: #### A LLBG ####[facility] LABCLIA [id number] [place] [address] [place] Hemoglobin (Bld) [Mass/Vol] 10.1 g/dL Low 13.0-17.0 [facility] Comment on above: Order Comment: Speci men Type: ARTERIAL BLOOD SPECIMENOrdering Facility: [facility] Address: [address] [place] [address] Performed By: #### A LLBG ####[facility] LABCLIA [id number] [place] [address] [place] Lactate [Moles/Vol] 0.8 mmol/L Normal 0.5-2.2 [facility] Comment on above: Order Comment: Speci men Type: ARTERIAL BLOOD SPECIMENOrdering Facility: [facility] Address: [address] [place] [address] Performed By: #### A LLBG ####[facility] LABCLIA [id number] [place] [address] [place] Methemoglobin (Bld) [Mass fraction] 0.7 % Normal 0.0-1.5 [facility] Comment on above: Order Comment: Speci men Type: ARTERIAL BLOOD SPECIMENOrdering Facility: [facility] Address: [address] [place] [address] Performed By: #### A LLBG ####[facility] LABCLIA [id number] [address] [place] O2 THERAPY NC = Nasal Cannula Normal [facility] Comment on above: Order Comment: Speci men Type: ARTERIAL BLOOD SPECIMENOrdering Facility: [facility] Address: [address] [place] [address] Performed By: #### A LLBG ####[facility] LABCLIA [id number] [place] [address] [place] Oxygen (Bld) [Partial pressure] 157 mm Hg High 85-95 [facility] Comment on above: Order Comment: Speci men Type: ARTERIAL BLOOD SPECIMENOrdering Facility: [facility] Address: [address] [place] [address] Performed By: #### A LLBG ####[facility] LABCLIA [id number] [place] [address] [place] Oxygen adjusted to patient's actual temperature (Bld) [Partial pressure] 157 mmHg High 85-95 [facility] Comment on above: Order Comment: Speci men Type: ARTERIAL BLOOD SPECIMENOrdering Facility: [facility] Address: [address] [place] [address] Performed By: #### A LLBG ####[facility] LABCLIA [id number] [place] [address] [place] Oxyhemoglobin (BldA) [Mass fraction] 97 % Normal 95-98 [facility] Comment on above: Order Comment: Speci men Type: ARTERIAL BLOOD SPECIMENOrdering Facility: [facility] Address: [address] [place] [address] Performed By: #### A LLBG ####[facility] LABCLIA [id number] [place] [address] [place] pH (Bld) 7.42 [pH] Normal 7.35-7.45 [facility] Comment on above: Order Comment: Speci men Type: ARTERIAL BLOOD SPECIMENOrdering Facility: [facility] Address: [address] [place] [address] Performed By: #### A LLBG ####[facility] LABCLIA [id number] [place] [address] [place] pH adjusted to patient's actual temperature (Bld) 7.43 Normal 7.35-7.45 [facility] Comment on above: Order Comment: Speci men Type: ARTERIAL BLOOD SPECIMENOrdering Facility: [facility] Address: [address] [place] [address] Performed By: #### A LLBG ####[facility] LABIA [id number] [place] [address] [place] Potassium [Moles/Vol] 3.9 mmol/L Normal 3.5-5.0 [facility] Comment on above: Order Comment: Speci men Type: ARTERIAL BLOOD SPECIMENOrdering Facility: [facility] Address: [address] [place] [address] Performed By: #### A LLBG ####[facility] LABIA [id number] [place] [address] [place] Sodium [Moles/Vol] 137 mmol/L Normal 136-144 [facility] Comment on above: Order Comment: Speci men Type: ARTERIAL BLOOD SPECIMENOrdering Facility: [facility] Address: [address] [place] [address] Performed By: #### A LLBG ####[facility] LABCLIA [id number] [place] [address] [place] Base excess Calc (Bld) [Moles/Vol] 5 mmol/L High 0-2 [facility] Comment on above: Order Comment: Speci men Type: ARTERIAL BLOOD SPECIMENOrdering Facility: [facility] Address: [address] [place] [address] Performed By: #### A LLBG ####[facility] LABCLIA [id number] [place] [address] [place] Body temperature 98.78 [degF] Normal [facility] Comment on above: Order Comment: Speci men Type: ARTERIAL BLOOD SPECIMENOrdering Facility: [facility] Address: [address] [place] [address] Performed By: #### A LLBG ####[facility] LABCLIA [id number] [place] [address] [place] Calcium.ionized (Bld) [Mass/Vol] 1.17 mmol/L Normal 1.08-1.30 [facility] Comment on above: Order Comment: Speci men Type: ARTERIAL BLOOD SPECIMENOrdering Facility: [facility] Address: [address] [place] [address] Performed By: #### A LLBG ####[facility] LABCLIA [id number] [place] [address] [place] Calcium.ionized adjusted to pH 7.4 (BldA) [Moles/Vol] 1.18 mmol/L Normal 1.08-1.30 [facility] Comment on above: Order Comment: Speci men Type: ARTERIAL BLOOD SPECIMENOrdering Facility: [facility] Address: [address] [place] [address] Performed By: #### A LLBG ####[facility] LABCLIA [id number] [place] [address] [place] Carboxyhemoglobin (BldA) [Mass fraction] 1.7 % Normal 0.0-2.0 [facility] Comment on above: Order Comment: Speci men Type: ARTERIAL BLOOD SPECIMENOrdering Facility: [facility] Address: [address] [place] [address] Performed By: #### A LLBG ####[facility] LABCLIA [id number] [place] [address] [place] CO2 (Bld) [Partial pressure] 47 mm Hg High 36-46 [facility] Comment on above: Order Comment: Speci men Type: ARTERIAL BLOOD SPECIMENOrdering Facility: [facility] Address: [address] [place] [address] Performed By: #### A LLBG ####[facility] LABCLIA [id number] [place] [address] [place] CO2 adjusted to patient's actual temperature (Bld) [Partial pressure] 47 mmHg High 36-46 [facility] Comment on above: Order Comment: Speci men Type: ARTERIAL BLOOD SPECIMENOrdering Facility: [facility] Address: [address] [place] [address] Performed By: #### A LLBG ####[facility] LABCLIA [id number] [place] [id number] [place] Glucose [Mass/Vol] 109 mg/dL High 60-105 [facility] Comment on above: Order Comment: Speci men Type: ARTERIAL BLOOD SPECIMENOrdering Facility: [facility] Address: [address] [place] [address] Performed By: #### A LLBG ####[facility] LABCLIA [id number] [place] [address] [place] HCO3 (Bld) [Moles/Vol] 29 mmol/L High 22-26 [facility] Comment on above: Order Comment: Speci men Type: ARTERIAL BLOOD SPECIMENOrdering Facility: [facility] Address: [address] [place] [address] Performed By: #### A LLBG ####[facility] LABCLIA [id number] [place] [address] [place] Hematocrit (Bld) [Volume fraction] 31.7 % Low 39.0-51.0 [facility] Comment on above: Order Comment: Speci men Type: ARTERIAL BLOOD SPECIMENOrdering Facility: [facility] Address: [address] [place] [address] Performed By: #### A LLBG ####[facility] LABCLIA [id number] [place] [address] [place] Hemoglobin (Bld) [Mass/Vol] 10.3 g/dL Low 13.0-17.0 [facility] Comment on above: Order Comment: Speci men Type: ARTERIAL BLOOD SPECIMENOrdering Facility: [facility] Address: [address] [place] [address] Performed By: #### A LLBG ####[facility] LABCLIA [id number] [place] [address] [place] Lactate [Moles/Vol] 1.0 mmol/L Normal 0.5-2.2 [facility] Comment on above: Order Comment: Speci men Type: ARTERIAL BLOOD SPECIMENOrdering Facility: [facility] Address: [address] [place] [address] Performed By: #### A LLBG ####[facility] LABCLIA [id number] [place] [address] [place] LITERS 3 Liters/min Normal [facility] Comment on above: Order Comment: Speci men Type: ARTERIAL BLOOD SPECIMENOrdering Facility: [facility] Address: [address] [place] [address] Performed By: #### A LLBG ####[facility] LABCLIA [id number] [place] [address] [place] Methemoglobin (Bld) [Mass fraction] 0.9 % Normal 0.0-1.5 [facility] Comment on above: Order Comment: Speci men Type: ARTERIAL BLOOD SPECIMENOrdering Facility: [facility] Address: [address] [place] [id number] Performed By: #### A LLBG ####[facility] LABCLIA [id number] [place] [id number] [place] O2 THERAPY NC = Nasal Cannula Normal [facility] Comment on above: Order Comment: Speci men Type: ARTERIAL BLOOD SPECIMENOrdering Facility: [facility] Address: [address] [place] [id number] Performed By: #### A LLBG ####[facility] LABCLIA [id number] [place] [id number] [place] Oxygen (Bld) [Partial pressure] 149 mm Hg High 85-95 [facility] Comment on above: Order Comment: Speci men Type: ARTERIAL BLOOD SPECIMENOrdering Facility: [facility] Address: [address] [place] [id number] Performed By: #### A LLBG ####[facility] LABCLIA [id number] [place] [id number] [place] Oxygen adjusted to patient's actual temperature (Bld) [Partial pressure] 150 mmHg High 85-95 [facility] Comment on above: Order Comment: Speci men Type: ARTERIAL BLOOD SPECIMENOrdering Facility: [facility] Address: [address] [place] [id number] Performed By: #### A LLBG ####[facility] LABCLIA [id number] [place] [id number] [place] Oxyhemoglobin (BldA) [Mass fraction] 97 % Normal 95-98 [facility] Comment on above: Order Comment: Speci men Type: ARTERIAL BLOOD SPECIMENOrdering Facility: [facility] Address: [address] [place] [address] Performed By: #### A LLBG ####[facility] LABCLIA [id number] [place] [address] [place] pH (Bld) 7.41 [pH] Normal 7.35-7.45 [facility] Comment on above: Order Comment: Speci men Type: ARTERIAL BLOOD SPECIMENOrdering Facility: [facility] Address: [address] [place] [address] Performed By: #### A LLBG ####[facility] LABCLIA [id number] [place] [address] [place] pH adjusted to patient's actual temperature (Bld) 7.41 Normal 7.35-7.45 [facility] Comment on above: Order Comment: Speci men Type: ARTERIAL BLOOD SPECIMENOrdering Facility: [facility] Address: [address] [place] [address] Performed By: #### A LLBG ####[facility] LABCLIA [id number] [place] [address] [place] Potassium [Moles/Vol] 4.2 mmol/L Normal 3.5-5.0 [facility] Comment on above: Order Comment: Speci men Type: ARTERIAL BLOOD SPECIMENOrdering Facility: [facility] Address: [address] [place] [address] Performed By: #### A LLBG ####[facility] LABCLIA [id number] [place] [address] [place] Sodium [Moles/Vol] 137 mmol/L Normal 136-144 [facility] Comment on above: Order Comment: Speci men Type: ARTERIAL BLOOD SPECIMENOrdering Facility: [facility] Address: [address] [place] [address] Performed By: #### A LLBG ####[facility] LABIA [id number] [place] [address] [place] Base excess Calc (Bld) [Moles/Vol] 5 mmol/L High 0-2 [facility] Comment on above: Order Comment: Speci men Type: ARTERIAL BLOOD SPECIMENOrdering Facility: [facility] Address: [address] [place] [address] Performed By: #### A LLBG ####[facility] LABIA [id number] [place] [address] [place] Body temperature 98.24 [degF] Normal [facility] Comment on above: Order Comment: Speci men Type: ARTERIAL BLOOD SPECIMENOrdering Facility: [facility] Address: [address] [place] [address] Performed By: #### A LLBG ####[facility] [id number] [place] [address] [place] Calcium.ionized (Bld) [Mass/Vol] 1.14 mmol/L Normal 1.08-1.30 [facility] Comment on above: Order Comment: Speci men Type: ARTERIAL BLOOD SPECIMENOrdering Facility: [facility] Address: [address] [place] [address] Performed By: #### A LLBG ####[facility] [id number] [place] [address] [place] Calcium.ionized adjusted to pH 7.4 (BldA) [Moles/Vol] 1.14 mmol/L Normal 1.08-1.30 [facility] Comment on above: Order Comment: Speci men Type: ARTERIAL BLOOD SPECIMENOrdering Facility: [facility] Address: [address] [place] [address] Performed By: #### A LLBG ####[facility] [id number] [place] [address] [place] Carboxyhemoglobin (BldA) [Mass fraction] 1.8 % Normal 0.0-2.0 [facility] Comment on above: Order Comment: Speci men Type: ARTERIAL BLOOD SPECIMENOrdering Facility: [facility] Address: [address] [place] [address] Performed By: #### A LLBG ####[facility] LABCLIA [id number] [place] [address] [place] CO2 (Bld) [Partial pressure] 48 mm Hg High 36-46 [facility] Comment on above: Order Comment: Speci men Type: ARTERIAL BLOOD SPECIMENOrdering Facility: [facility] Address: [address] [place] [address] Performed By: #### A LLBG ####[facility] LABCLIA [id number] [place] [address] [place] CO2 adjusted to patient's actual temperature (Bld) [Partial pressure] 48 mmHg High 36-46 [facility] Comment on above: Order Comment: Speci men Type: ARTERIAL BLOOD SPECIMENOrdering Facility: [facility] Address: [address] [place] [address] Performed By: #### A LLBG ####[facility] LABCLIA [id number] [place] [address] [place] Glucose [Mass/Vol] 114 mg/dL High 60-105 [facility] Comment on above: Order Comment: Speci men Type: ARTERIAL BLOOD SPECIMENOrdering Facility: [facility] Address: [address] [place] [address] Performed By: #### A LLBG ####[facility] LABCLIA [id number] [place] [address] [place] HCO3 (Bld) [Moles/Vol] 30 mmol/L High 22-26 [facility] Comment on above: Order Comment: Speci men Type: ARTERIAL BLOOD SPECIMENOrdering Facility: [facility] Address: [address] [place] [address] Performed By: #### A LLBG ####[facility] LABCLIA [id number] [place] [address] [place] Hematocrit (Bld) [Volume fraction] 31.8 % Low 39.0-51.0 [facility] Comment on above: Order Comment: Speci men Type: ARTERIAL BLOOD SPECIMENOrdering Facility: [facility] Address: [address] [place] [address] Performed By: #### A LLBG ####[facility] LABCLIA [id number] [place] [address] [place] Hemoglobin (Bld) [Mass/Vol] 10.3 g/dL Low 13.0-17.0 [facility] Comment on above: Order Comment: Speci men Type: ARTERIAL BLOOD SPECIMENOrdering Facility: [facility] Address: [address] [place] [address] Performed By: #### A LLBG ####[facility] LABCLIA [id number] [place] [address] [place] Lactate [Moles/Vol] 1.0 mmol/L Normal 0.5-2.2 [facility] Comment on above: Order Comment: Speci men Type: ARTERIAL BLOOD SPECIMENOrdering Facility: [facility] Address: [address] [place] [address] Performed By: #### A LLBG ####[facility] LABCLIA [id number] [place] [address] [place] LITERS 4 Liters/min Normal [facility] Comment on above: Order Comment: Speci men Type: ARTERIAL BLOOD SPECIMENOrdering Facility: [facility] Address: [address] [place] [address] Performed By: #### A LLBG ####[facility] LABCLIA [id number] [place] [address] [place] Methemoglobin (Bld) [Mass fraction] 1.8 % High 0.0-1.5 [facility] Comment on above: Order Comment: Speci men Type: ARTERIAL BLOOD SPECIMENOrdering Facility: [facility] Address: [address] [place] [address] Performed By: #### A LLBG ####[facility] LABCLIA [id number] [address] [address] [place] O2 THERAPY NC = Nasal Cannula Normal [facility] Comment on above: Order Comment: Speci men Type: ARTERIAL BLOOD SPECIMENOrdering Facility: [facility] Address: [address] [place] [id number] Performed By: #### A LLBG ####[facility] LABCLIA [id number] [place] [address] [place] Oxygen (Bld) [Partial pressure] 117 mm Hg High 85-95 [facility] Comment on above: Order Comment: Speci men Type: ARTERIAL BLOOD SPECIMENOrdering Facility: [facility] Address: [address] [place] [address] Performed By: #### A LLBG ####[facility] LABCLIA [id number] [place] [address] [place] Oxygen adjusted to patient's actual temperature (Bld) [Partial pressure] 116 mmHg High 85-95 [facility] Comment on above: Order Comment: Speci men Type: ARTERIAL BLOOD SPECIMENOrdering Facility: [facility] Address: [address] [place] [id number] Performed By: #### A LLBG ####[facility] LABCLIA [id number] [address] [address] [place] Oxyhemoglobin (BldA) [Mass fraction] 95 % Normal 95-98 [facility] Comment on above: Order Comment: Speci men Type: ARTERIAL BLOOD SPECIMENOrdering Facility: [facility] Address: [address] [place] [id number] Performed By: #### A LLBG ####[facility] LABCLIA [id number] [place] [address] [place] pH (Bld) 7.41 [pH] Normal 7.35-7.45 [facility] Comment on above: Order Comment: Speci men Type: ARTERIAL BLOOD SPECIMENOrdering Facility: [facility] Address: [address] [place] [address] Performed By: #### A LLBG ####[facility] LABCLIA [id number] [place] [address] [place] pH adjusted to patient's actual temperature (Bld) 7.41 Normal 7.35-7.45 [facility] Comment on above: Order Comment: Speci men Type: ARTERIAL BLOOD SPECIMENOrdering Facility: [facility] Address: [address] [place] [address] Performed By: #### A LLBG ####[facility] LABIA [id number] [place] [address] [place] Potassium [Moles/Vol] 4.8 mmol/L Normal 3.5-5.0 [facility] Comment on above: Order Comment: Speci men Type: ARTERIAL BLOOD SPECIMENOrdering Facility: [facility] Address: [address] [place] [address] Performed By: #### A LLBG ####[facility] LABIA [id number] [place] [address] [place] Sodium [Moles/Vol] 137 mmol/L Normal 136-144 [facility] Comment on above: Order Comment: Speci men Type: ARTERIAL BLOOD SPECIMENOrdering Facility: [facility] Address: [address] [place] [address] Performed By: #### A LLBG ####[facility] LABCLIA [id number] [place] [address] [place] Base excess Calc (Bld) [Moles/Vol] 3 mmol/L High 0-2 [facility] Comment on above: Order Comment: Speci men Type: ARTERIAL BLOOD SPECIMENOrdering Facility: [facility] Address: [address] [place] [address] Performed By: #### A LLBG ####[facility] LABCLIA [id number] [place] [address] [place] Body temperature 98.6 [degF] Normal [facility] Comment on above: Order Comment: Speci men Type: ARTERIAL BLOOD SPECIMENOrdering Facility: [facility] Address: [address] [place] [address] Performed By: #### A LLBG ####[facility] LABCLIA [id number] [address] [place] Order Comment: Speci men Type: VENOUS BLOOD SPECIMENOrdering Facility: [facility] Address: [address] [place] [address] Performed By: #### 2 4344-4 ####[facility] LABCLIA [id number] [place] [address] [place] Calcium.ionized (Bld) [Mass/Vol] 1.33 mmol/L High 1.08-1.30 [facility] Comment on above: Order Comment: Speci men Type: ARTERIAL BLOOD SPECIMENOrdering Facility: [facility] Address: [address] [place] [address] Performed By: #### A LLBG ####[facility] LABCLIA [id number] [address] [place] Calcium.ionized adjusted to pH 7.4 (BldA) [Moles/Vol] 1.30 mmol/L Normal 1.08-1.30 [facility] Comment on above: Order Comment: Speci men Type: ARTERIAL BLOOD SPECIMENOrdering Facility: [facility] Address: [address] [place] [address] Performed By: #### A LLBG ####[facility] LABCLIA [id number] [address] [place] Carboxyhemoglobin (BldA) [Mass fraction] 2.0 % Normal 0.0-2.0 [facility] Comment on above: Order Comment: Speci men Type: ARTERIAL BLOOD SPECIMENOrdering Facility: [facility] Address: [address] [place] [address] Result Comment: Carb oxyhemoglobin Reference Range for Smokers: 2.0-8.0% Performed By: #### A LLBG ####[facility] LABCLIA [id number] [place] [address] [place] CO2 (Bld) [Partial pressure] 53 mm Hg High 36-46 [facility] Comment on above: Order Comment: Speci men Type: ARTERIAL BLOOD SPECIMENOrdering Facility: [facility] Address: [address] [place] [address] Performed By: #### A LLBG ####[facility] LABCLIA [id number] [place] [address] [place] Glucose [Mass/Vol] 118 mg/dL High 60-105 [facility] Comment on above: Order Comment: Speci men Type: ARTERIAL BLOOD SPECIMENOrdering Facility: [facility] Address: [address] [place] [address] Performed By: #### A LLBG ####[facility] LABCLIA [id number] [place] [address] [place] HCO3 (Bld) [Moles/Vol] 29 mmol/L High 22-26 [facility] Comment on above: Order Comment: Speci men Type: ARTERIAL BLOOD SPECIMENOrdering Facility: [facility] Address: [address] [place] [address] Performed By: #### A LLBG ####[facility] LABCLIA [id number] [place] [address] [place] Hematocrit (Bld) [Volume fraction] 30.7 % Low 39.0-51.0 [facility] Comment on above: Order Comment: Speci men Type: ARTERIAL BLOOD SPECIMENOrdering Facility: [facility] Address: [address] [place] [address] Performed By: #### A LLBG ####[facility] LABCLIA [id number] [place] [address] [place] Hemoglobin (Bld) [Mass/Vol] 9.9 g/dL Low 13.0-17.0 [facility] Comment on above: Order Comment: Speci men Type: ARTERIAL BLOOD SPECIMENOrdering Facility: [facility] Address: [address] [place] [address] Performed By: #### A LLBG ####[facility] LABCLIA [id number] [place] [address] [place] Lactate [Moles/Vol] 0.8 mmol/L Normal 0.5-2.2 [facility] Comment on above: Order Comment: Speci men Type: ARTERIAL BLOOD SPECIMENOrdering Facility: [facility] Address: [address] [place] [address] Performed By: #### A LLBG ####[facility] LABCLIA [id number] [place] [address] [place] Order Comment: Speci men Type: VENOUS BLOOD SPECIMENOrdering Facility: [facility] Address: [address] [place] [address] Performed By: #### 2 4344-4 ####[facility] LABCLIA [id number] [place] [address] [place] LITERS 3 Liters/min Normal [facility] Comment on above: Order Comment: Speci men Type: ARTERIAL BLOOD SPECIMENOrdering Facility: [facility] Address: [address] [place] [address] Performed By: #### A LLBG ####[facility] LABCLIA [id number] [place] [address] [place] Methemoglobin (Bld) [Mass fraction] 0.6 % Normal 0.0-1.5 [facility] Comment on above: Order Comment: Speci men Type: ARTERIAL BLOOD SPECIMENOrdering Facility: [facility] Address: [address] [place] [address] Performed By: #### A LLBG ####[facility] LABCLIA [id number] [address] [address] [place] Order Comment: Speci men Type: VENOUS BLOOD SPECIMENOrdering Facility: [facility] Address: [address] [place] [address] Performed By: #### 2 4344-4 ####[facility] LABCLIA [id number] [place] [address] [place] O2 THERAPY NC = Nasal Cannula Normal [facility] Comment on above: Order Comment: Speci men Type: ARTERIAL BLOOD SPECIMENOrdering Facility: [facility] Address: [address] [place] [address] Performed By: #### A LLBG ####[facility] LABCLIA [id number] [place] [id number] [place] Order Comment: Speci men Type: VENOUS BLOOD SPECIMENOrdering Facility: [facility] Address: [address] [place], [place] [address] Performed By: #### 2 4344-4 ####[facility] LABCLIA [id number] [place] [id number] [place] Oxygen (Bld) [Partial pressure] 167 mm Hg High 85-95 [facility] Comment on above: Order Comment: Speci men Type: ARTERIAL BLOOD SPECIMENOrdering Facility: [facility] Address: [address] [place], [place] [address] Performed By: #### A LLBG ####[facility] LABCLIA [id number] [address] [address] [place] Oxyhemoglobin (BldA) [Mass fraction] 97 % Normal 95-98 [facility] Comment on above: Order Comment: Speci men Type: ARTERIAL BLOOD SPECIMENOrdering Facility: [facility] Address: [address] [place] [address] Performed By: #### A LLBG ####[facility] LABCLIA [id number] [place] [address] [place] pH (Bld) 7.36 [pH] Normal 7.35-7.45 [facility] Comment on above: Order Comment: Speci men Type: ARTERIAL BLOOD SPECIMENOrdering Facility: [facility] Address: [address] [place] [address] Performed By: #### A LLBG ####[facility] LABCLIA [id number] [place] [address] [place] Potassium [Moles/Vol] 4.5 mmol/L Normal 3.5-5.0 [facility] Comment on above: Order Comment: Speci men Type: ARTERIAL BLOOD SPECIMENOrdering Facility: [facility] Address: [address] [place] [address] Performed By: #### A LLBG ####[facility] LABCLIA [id number] [place] [address] [place] Sodium [Moles/Vol] 146 mmol/L High 136-144 [facility] Comment on above: Order Comment: Speci men Type: ARTERIAL BLOOD SPECIMENOrdering Facility: [facility] Address: [address] [place] [address] Performed By: #### A LLBG ####[facility] LABCLIA [id number] [place] [address] [place] Base excess Calc (Bld) [Moles/Vol] 5 mmol/L High 0-2 [facility] Comment on above: Order Comment: Speci men Type: ARTERIAL BLOOD SPECIMENOrdering Facility: [facility] Address: [address] [place], [place] [address] Performed By: #### A LLBG ####[facility] LABCLIA [id number] [place] [address] [place] Body temperature 98.6 [degF] Normal [facility] Comment on above: Order Comment: Speci men Type: ARTERIAL BLOOD SPECIMENOrdering Facility: [facility] Address: [address] [place] [address] Performed By: #### A LLBG ####[facility] LABIA [id number] [place] [address] [place] Order Comment: Speci men Type: VENOUS BLOOD SPECIMENOrdering Facility: [facility] Address: [address] [place] [address] Performed By: #### 2 4344-4 ####[facility] LABIA [id number] [place] [address] [place] Calcium.ionized (Bld) [Mass/Vol] 1.16 mmol/L Normal 1.08-1.30 [facility] Comment on above: Order Comment: Speci men Type: ARTERIAL BLOOD SPECIMENOrdering Facility: [facility] Address: [address] [place] [address] Performed By: #### A LLBG ####[facility] LABIA [id number] [place] [address] [place] Calcium.ionized adjusted to pH 7.4 (BldA) [Moles/Vol] 1.18 mmol/L Normal 1.08-1.30 [facility] Comment on above: Order Comment: Speci men Type: ARTERIAL BLOOD SPECIMENOrdering Facility: [facility] Address: [address] [place] [address] Performed By: #### A LLBG ####[facility] LABIA [id number] [place] [address] [place] Carboxyhemoglobin (BldA) [Mass fraction] 2.2 % High 0.0-2.0 [facility] Comment on above: Order Comment: Speci men Type: ARTERIAL BLOOD SPECIMENOrdering Facility: [facility] Address: [address] [place] [address] Result Comment: Carb oxyhemoglobin Reference Range for Smokers: 2.0-8.0% Performed By: #### A LLBG ####[facility] LABCLIA [id number] [place] [address] [place] CO2 (Bld) [Partial pressure] 45 mm Hg Normal 36-46 [facility] Comment on above: Order Comment: Speci men Type: ARTERIAL BLOOD SPECIMENOrdering Facility: [facility] Address: [address] [place] [address] Performed By: #### A LLBG ####[facility] LABCLIA [id number] [place] [address] [place] Glucose [Mass/Vol] 124 mg/dL High 60-105 [facility] Comment on above: Order Comment: Speci men Type: ARTERIAL BLOOD SPECIMENOrdering Facility: [facility] Address: [address] [place] [address] Performed By: #### A LLBG ####[facility] LABCLIA [id number] [place] [address] [place] HCO3 (Bld) [Moles/Vol] 29 mmol/L High 22-26 [facility] Comment on above: Order Comment: Speci men Type: ARTERIAL BLOOD SPECIMENOrdering Facility: [facility] Address: [address] [place] [address] Performed By: #### A LLBG ####[facility] LABCLIA [id number] [place] [address] [place] Hematocrit (Bld) [Volume fraction] 31.2 % Low 39.0-51.0 [facility] Comment on above: Order Comment: Speci men Type: ARTERIAL BLOOD SPECIMENOrdering Facility: [facility] Address: [address] [place] [address] Performed By: #### A LLBG ####[facility] LABCLIA [id number] [place] [address] [place] Hemoglobin (Bld) [Mass/Vol] 10.1 g/dL Low 13.0-17.0 [facility] Comment on above: Order Comment: Speci men Type: ARTERIAL BLOOD SPECIMENOrdering Facility: [facility] Address: [address] [place] [address] Performed By: #### A LLBG ####[facility] LABCLIA [id number] [place] [address] [place] Lactate [Moles/Vol] 0.9 mmol/L Normal 0.5-2.2 [facility] Comment on above: Order Comment: Speci men Type: ARTERIAL BLOOD SPECIMENOrdering Facility: [facility] Address: [address] [place] [address] Performed By: #### A LLBG ####[facility] LABCLIA [id number] [place] [address] [place] LITERS 3 Liters/min Normal [facility] Comment on above: Order Comment: Speci men Type: ARTERIAL BLOOD SPECIMENOrdering Facility: [facility] Address: [address] [place] [address] Performed By: #### A LLBG ####[facility] LABCLIA [id number] [place] [address] [place] Order Comment: Speci men Type: VENOUS BLOOD SPECIMENOrdering Facility: [facility] Address: [address] [place] [address] Performed By: #### 2 4344-4 ####[facility] LABCLIA [id number] [place] [address] [place] Methemoglobin (Bld) [Mass fraction] 0.9 % Normal 0.0-1.5 [facility] Comment on above: Order Comment: Speci men Type: ARTERIAL BLOOD SPECIMENOrdering Facility: [facility] Address: [address] [place] [address] Performed By: #### A LLBG ####[facility] LABCLIA [id number] [place] [address] [place] O2 THERAPY NC = Nasal Cannula Normal [facility] Comment on above: Order Comment: Speci men Type: ARTERIAL BLOOD SPECIMENOrdering Facility: [facility] Address: [address] [place] [address] Performed By: #### A LLBG ####[facility] LABCLIA [id number] [place] [address] [place] Order Comment: Speci men Type: VENOUS BLOOD SPECIMENOrdering Facility: [facility] Address: [address] [place] [address] Performed By: #### 2 4344-4 ####[facility] LABCLIA [id number] [place] [address] [place] Oxygen (Bld) [Partial pressure] 148 mm Hg High 85-95 [facility] Comment on above: Order Comment: Speci men Type: ARTERIAL BLOOD SPECIMENOrdering Facility: [facility] Address: [address] [place] [address] Performed By: #### A LLBG ####[facility] LABCLIA [id number] [place] [address] [place] Oxyhemoglobin (BldA) [Mass fraction] 97 % Normal 95-98 [facility] Comment on above: Order Comment: Speci men Type: ARTERIAL BLOOD SPECIMENOrdering Facility: [facility] Address: [address] [place] [id number] Performed By: #### A LLBG ####[facility] LABCLIA [id number] [place] [address] [place] pH (Bld) 7.43 [pH] Normal 7.35-7.45 [facility] Comment on above: Order Comment: Speci men Type: ARTERIAL BLOOD SPECIMENOrdering Facility: [facility] Address: [address] [place] [address] Performed By: #### A LLBG ####[facility] LABCLIA [id number] [place] [address] [place] Potassium [Moles/Vol] 4.4 mmol/L Normal 3.5-5.0 [facility] Comment on above: Order Comment: Speci men Type: ARTERIAL BLOOD SPECIMENOrdering Facility: [facility] Address: [address] [place] [address] Performed By: #### A LLBG ####[facility] LABCLIA [id number] [place] [address] [place] Order Comment: Speci men Type: VENOUS BLOOD SPECIMENOrdering Facility: [facility] Address: [address] [place] [address] Performed By: #### 2 4344-4 ####[facility] LABCLIA [id number] [place] [address] [place] Sodium [Moles/Vol] 138 mmol/L Normal 136-144 [facility] Comment on above: Order Comment: Speci men Type: ARTERIAL BLOOD SPECIMENOrdering Facility: [facility] Address: [address] [place] [address] Performed By: #### A LLBG ####[facility] LABCLIA [id number] [place] [address] [place] CASE MANAGEMon 01-26-2024 CASE MANAGEM Normal [facility] CBC panel Auto (Bld)on 01-25 Erythrocyte distribution width (RBC) [Ratio] 15.5 % High 11.5-15.0 [facility] Comment on above: Order Comment: Speci men Type: BLOOD SPECIMENOrdering Facility: [facility] Address: [address] [place] [address] Performed By: #### 5 8410-2 ####[facility] LABCLIA [id number] [place] [address] [place] Hematocrit (Bld) [Volume fraction] 30.8 % Low 39.0-51.0 [facility] Comment on above: Order Comment: Speci men Type: BLOOD SPECIMENOrdering Facility: [facility] Address: [address] [place] [address] Performed By: #### 5 8410-2 ####[facility] LABIA [id number] [place] [address] [place] MCH (RBC) [Entitic mass] 28.2 pg Normal 26.0-34.0 [facility] Comment on above: Order Comment: Speci men Type: BLOOD SPECIMENOrdering Facility: [facility] Address: [address] [place] [address] Performed By: #### 5 8410-2 ####[facility] LABIA [id number] [address] [place] MCHC (RBC) [Mass/Vol] 32.5 g/dL Normal 30.5-36.0 [facility] Comment on above: Order Comment: Speci men Type: BLOOD SPECIMENOrdering Facility: [facility] Address: [address] [place] [address] Performed By: #### 5 8410-2 ####[facility] LABIA [id number] [place] [address] [place] MCV (RBC) [Entitic vol] 87.0 fL Normal 80.0-100.0 [facility] Comment on above: Order Comment: Speci men Type: BLOOD SPECIMENOrdering Facility: [facility] Address: [address] [place] [address] Performed By: #### 5 8410-2 ####[facility] LABIA [id number] [place] [address] [place] Nucleated RBC (Bld) [#/Vol] 10*3/uL Normal <0.01 [facility] Comment on above: Order Comment: Speci men Type: BLOOD SPECIMENOrdering Facility: [facility] Address: [address] [place] [address] Performed By: #### 5 8410-2 ####[facility] [id number] [place] [address] [place] Platelet mean volume (Bld) [Entitic vol] 11.1 fL Normal 9.0-12.7 [facility] Comment on above: Order Comment: Speci men Type: BLOOD SPECIMENOrdering Facility: [facility] Address: [address] [place] [address] Performed By: #### 5 8410-2 ####[facility] [id number] [place] [address] [place] Platelets (Bld) [#/Vol] 108 10*3/uL Low 150-400 [facility] Comment on above: Order Comment: Speci men Type: BLOOD SPECIMENOrdering Facility: [facility] Address: [address] [place] [address] Result Comment: Resu lts checked and verified.No clot detected. Performed By: #### 5 8410-2 ####[facility] [id number] [place] [address] [place] RBC (Bld) [#/Vol] 3.54 10*6/uL Low 4.20-6.00 [facility] Comment on above: Order Comment: Speci men Type: BLOOD SPECIMENOrdering Facility: [facility] Address: [address] [place] [address] Performed By: #### 5 8410-2 ####[facility] [id number] [place] [address] [place] WBC (Bld) [#/Vol] 12.52 10*3/uL High 3.70-11.00 [facility] Comment on above: Order Comment: Speci men Type: BLOOD SPECIMENOrdering Facility: [facility] Address: [address] [place] [id number] Performed By: #### 5 8410-2 ####[facility] LABCLIA [id number] [address] [address] [place] Comprehensive metabolic 2000 panelon 01-26-2024 Albumin [Mass/Vol] 4.1 g/dL Normal 3.9-4.9 [facility] Comment on above: Order Comment: Speci men Type: BLOOD SPECIMENOrdering Facility: [facility] Address: [address] [place] [address] Performed By: #### 2 4323-8 ####[facility] LABCLIA [id number] [place] [address] [place] ALP [Catalytic activity/Vol] 45 U/L Normal 38-113 [facility] Comment on above: Order Comment: Speci men Type: BLOOD SPECIMENOrdering Facility: [facility] Address: [address] [place] [address] Performed By: #### 2 4323-8 ####[facility] LABCLIA [id number] [place] [address] [place] ALT [Catalytic activity/Vol] 15 U/L Normal 10-54 [facility] Comment on above: Order Comment: Speci men Type: BLOOD SPECIMENOrdering Facility: [facility] Address: [address] [place] [address] Performed By: #### 2 4323-8 ####[facility] LABCLIA [id number] [place] [id number] [place] Anion gap [Moles/Vol] 13 mmol/L Normal 8-15 [facility] Comment on above: Order Comment: Speci men Type: BLOOD SPECIMENOrdering Facility: [facility] Address: [address] [place] [id number] Performed By: #### 2 4323-8 ####[facility] LABCLIA [id number] [place] [id number] [place] AST [Catalytic activity/Vol] 60 U/L High 14-40 [facility] Comment on above: Order Comment: Speci men Type: BLOOD SPECIMENOrdering Facility: [facility] Address: [address] [place] [address] Performed By: #### 2 4323-8 ####[facility] LABCLIA [id number] [place] [address] [place] Bilirubin [Mass/Vol] 0.9 mg/dL Normal 0.2-1.3 [facility] Comment on above: Order Comment: Speci men Type: BLOOD SPECIMENOrdering Facility: [facility] Address: [address] [place] [address] Performed By: #### 2 4323-8 ####[facility] LABCLIA [id number] [place] [address] [place] Calcium [Mass/Vol] 9.0 mg/dL Normal 8.5-10.2 [facility] Comment on above: Order Comment: Speci men Type: BLOOD SPECIMENOrdering Facility: [facility] Address: [address] [place] [address] Performed By: #### 2 4323-8 ####[facility] LABCLIA [id number] [place] [address] [place] Chloride [Moles/Vol] 100 mmol/L Normal 98-107 [facility] Comment on above: Order Comment: Speci men Type: BLOOD SPECIMENOrdering Facility: [facility] Address: [address] [place] [address] Performed By: #### 2 4323-8 ####[facility] LABCLIA [id number] [place] [address] [place] CO2 [Moles/Vol] 27 mmol/L Normal 22-30 [facility] Comment on above: Order Comment: Speci men Type: BLOOD SPECIMENOrdering Facility: [facility] Address: [address] [place] [address] Performed By: #### 2 4323-8 ####[facility] LABCLIA [id number] [place] [address] [place] Creatinine [Mass/Vol] 1.02 mg/dL Normal 0.73-1.22 [facility] Comment on above: Order Comment: Speci men Type: BLOOD SPECIMENOrdering Facility: [facility] Address: [address] [place] [address] Performed By: #### 2 4323-8 ####[facility] LABIA [id number] [place] [address] [place] Creatinine and Glomerular filtration rate.predicted panel (S/P/Bld) 81 mL/min/1.73m??? Normal >=60 [facility] Comment on above: Order Comment: Speci men Type: BLOOD SPECIMENOrdering Facility: [facility] Address: [address] [place] [address] Result Comment: Talisha mated Glomerular Filtration Rate [...] actual GFR. Performed By: #### 2 4323-8 ####[facility] LABIA [id number] [place] [id number] [place] Glucose [Mass/Vol] 119 mg/dL High 74-99 [facility] Comment on above: Order Comment: Speci men Type: BLOOD SPECIMENOrdering Facility: [facility] Address: [address] [place] [address] Result Comment: The [place] [employer] (ADA) provides guidance for cutoff [...] Standards of Medical Care in Diabetes 2016, [place] [employer]. Diabetes Care. 2016.39(Suppl 1). Performed By: #### 2 4323-8 ####[facility] LABCLIA [id number] [place] [address] [place] Protein [Mass/Vol] 6.4 g/dL Normal 6.3-8.0 [facility] Comment on above: Order Comment: Speci men Type: BLOOD SPECIMENOrdering Facility: [facility] Address: [address] [place] [address] Performed By: #### 2 4323-8 ####[facility] LABIA [id number] [place] [address] [place] Urea nitrogen [Mass/Vol] 35 mg/dL High 9-24 [facility] Comment on above: Order Comment: Tatyanai brinda Type: BLOOD SPECIMENOrdering Facility: [facility] Address: [address] [place] [address] Performed By: #### 2 4323-8 ####[facility] LABIA [id number] [place] [address] [place] Gas + CO Pnl BldVon 01-26-20 24 Hemoglobin (Bld) [Mass/Vol] 10.0 g/dL Low 13.0-17.0 [facility] Comment on above: Order Comment: Speci men Type: VENOUS BLOOD SPECIMENOrdering Facility: [facility] Address: [address] [place] [address] Performed By: #### 2 4344-4 ####[facility] LABCLIA [id number] [place] [address] [place] Order Comment: Speci men Type: BLOOD SPECIMENOrdering Facility: [facility] Address: [address] [place] [address] Performed By: #### 5 8410-2 ####[facility] [id number] [place] [address] [place] Gas and Carbon monoxide pane l (BldV)on 01-26-2024 Base excess Calc (BldV) [Moles/Vol] 4 mmol/L High 0-2 [facility] Comment on above: Order Comment: Speci men Type: VENOUS BLOOD SPECIMENOrdering Facility: [facility] Address: [address] [place] [address] Performed By: #### 2 4344-4 ####[facility] [id number] [place] [address] [place] Calcium.ionized (Bld) [Mass/Vol] 1.16 mmol/L Normal 1.08-1.30 [facility] Comment on above: Order Comment: Speci men Type: VENOUS BLOOD SPECIMENOrdering Facility: [facility] Address: [address] [place] [address] Performed By: #### 2 4344-4 ####[facility] [id number] [place] [address] [place] Calcium.ionized adjusted to pH 7.4 (BldA) [Moles/Vol] 1.13 mmol/L Normal 1.08-1.30 [facility] Comment on above: Order Comment: Speci men Type: VENOUS BLOOD SPECIMENOrdering Facility: [facility] Address: [address] [place] [address] Performed By: #### 2 4344-4 ####[facility] [id number] [place] [address] [place] Carboxyhemoglobin (BldV) [Mass fraction] 1.6 % Normal 0.0-2.0 [facility] Comment on above: Order Comment: Speci men Type: VENOUS BLOOD SPECIMENOrdering Facility: [facility] Address: [address] [place] [address] Result Comment: Carb oxyhemoglobin Reference Range for Smokers: 2.0-8.0% Performed By: #### 2 4344-4 ####[facility] LABCLIA [id number] [place] [address] [place] CO2 (BldV) [Partial pressure] 55 mm[Hg] Normal 42-55 [facility] Comment on above: Order Comment: Speci men Type: VENOUS BLOOD SPECIMENOrdering Facility: [facility] Address: [address] [place] [address] Performed By: #### 2 4344-4 ####[facility] LABCLIA [id number] [place] [address] [place] Glucose [Mass/Vol] 116 mg/dL High 60-105 [facility] Comment on above: Order Comment: Speci men Type: VENOUS BLOOD SPECIMENOrdering Facility: [facility] Address: [address] [place] [address] Performed By: #### 2 4344-4 ####[facility] LABCLIA [id number] [place] [address] [place] HCO3 (Bld) [Moles/Vol] 30 mmol/L High 24-28 [facility] Comment on above: Order Comment: Speci men Type: VENOUS BLOOD SPECIMENOrdering Facility: [facility] Address: [address] [place] [address] Performed By: #### 2 4344-4 ####[facility] LABCLIA [id number] [place] [address] [place] Hematocrit (Bld) [Volume fraction] 29.8 % Low 39.0-51.0 [facility] Comment on above: Order Comment: Speci men Type: VENOUS BLOOD SPECIMENOrdering Facility: [facility] Address: [address] [place] [address] Performed By: #### 2 4344-4 ####[facility] LABCLIA [id number] [address] [address] [place] Hemoglobin (Bld) [Mass/Vol] 9.6 g/dL Low 13.0-17.0 [facility] Comment on above: Order Comment: Speci men Type: VENOUS BLOOD SPECIMENOrdering Facility: [facility] Address: [address] [place] [address] Performed By: #### 2 4344-4 ####[facility] LABCLIA [id number] [place] [address] [place] Oxygen (BldV) [Partial pressure] 44 mm[Hg] Normal 35-45 [facility] Comment on above: Order Comment: Speci men Type: VENOUS BLOOD SPECIMENOrdering Facility: [facility] Address: [address] [place] [address] Performed By: #### 2 4344-4 ####[facility] LABCLIA [id number] [place] [address] [place] Oxygen saturation in Venous blood 75 % Normal 60-85 [facility] Comment on above: Order Comment: Speci men Type: VENOUS BLOOD SPECIMENOrdering Facility: [facility] Address: [address] [place] [address] Performed By: #### 2 4344-4 ####[facility] LABCLIA [id number] [place] [address] [place] Oxyhemoglobin (BldV) [Mass fraction] 73 % Normal 60-85 [facility] Comment on above: Order Comment: Speci men Type: VENOUS BLOOD SPECIMENOrdering Facility: [facility] Address: [address] [place], [place] [address] Performed By: #### 2 4344-4 ####[facility] LABCLIA [id number] [address] [address] [place] pH (BldV) 7.35 [pH] Normal 7.32-7.42 [facility] Comment on above: Order Comment: Speci men Type: VENOUS BLOOD SPECIMENOrdering Facility: [facility] Address: [address] [place] [id number] Performed By: #### 2 4344-4 ####[facility] LABCLIA [id number] [place] [id number] [place] Potassium [Moles/Vol] 4.2 mmol/L Normal 3.5-5.0 [facility] Comment on above: Order Comment: Speci men Type: VENOUS BLOOD SPECIMENOrdering Facility: [facility] Address: [address] [place] [address] Performed By: #### 2 4344-4 ####[facility] LABCLIA [id number] [place] [address] [place] Sodium [Moles/Vol] 138 mmol/L Normal 136-144 [facility] Comment on above: Order Comment: Speci men Type: VENOUS BLOOD SPECIMENOrdering Facility: [facility] Address: [address] [place] [address] Performed By: #### 2 4344-4 ####[facility] LABCLIA [id number] [place] [address] [place] Base excess Calc (BldV) [Moles/Vol] 5 mmol/L High 0-2 [facility] Comment on above: Order Comment: Speci men Type: VENOUS BLOOD SPECIMENOrdering Facility: [facility] Address: [address] [place], [place] [address] Performed By: #### 2 4344-4 ####[facility] LABIA [id number] [place] [address] [place] Calcium.ionized (Bld) [Mass/Vol] 1.19 mmol/L Normal 1.08-1.30 [facility] Comment on above: Order Comment: Speci men Type: VENOUS BLOOD SPECIMENOrdering Facility: [facility] Address: [address] [place], [place] [address] Performed By: #### 2 4344-4 ####[facility] LABIA [id number] [place] [address] [place] Calcium.ionized adjusted to pH 7.4 (BldA) [Moles/Vol] 1.17 mmol/L Normal 1.08-1.30 [facility] Comment on above: Order Comment: Speci men Type: VENOUS BLOOD SPECIMENOrdering Facility: [facility] Address: [address] [place] [address] Performed By: #### 2 4344-4 ####[facility] LABIA [id number] [place] [address] [place] Carboxyhemoglobin (BldV) [Mass fraction] 1.7 % Normal 0.0-2.0 [facility] Comment on above: Order Comment: Speci men Type: VENOUS BLOOD SPECIMENOrdering Facility: [facility] Address: [address] [place] [address] Result Comment: Carb oxyhemoglobin Reference Range for Smokers: 2.0-8.0% Performed By: #### 2 4344-4 ####[facility] LABIA [id number] [place] [address] [place] CO2 (BldV) [Partial pressure] 55 mm[Hg] Normal 42-55 [facility] Comment on above: Order Comment: Speci men Type: VENOUS BLOOD SPECIMENOrdering Facility: [facility] Address: [address] [place] [address] Performed By: #### 2 4344-4 ####[facility] LABIA [id number] [place] [address] [place] Glucose [Mass/Vol] 123 mg/dL High 60-105 [facility] Comment on above: Order Comment: Speci men Type: VENOUS BLOOD SPECIMENOrdering Facility: [facility] Address: [address] [place] [address] Performed By: #### 2 4344-4 ####[facility] LABCLIA [id number] [place] [address] [place] HCO3 (Bld) [Moles/Vol] 31 mmol/L High 24-28 [facility] Comment on above: Order Comment: Speci men Type: VENOUS BLOOD SPECIMENOrdering Facility: [facility] Address: [address] [place] [address] Performed By: #### 2 4344-4 ####[facility] LABIA [id number] [place] [address] [place] Hematocrit (Bld) [Volume fraction] 31.0 % Low 39.0-51.0 [facility] Comment on above: Order Comment: Speci men Type: VENOUS BLOOD SPECIMENOrdering Facility: [facility] Address: [address] [place] [address] Performed By: #### 2 4344-4 ####[facility] LABIA [id number] [place] [address] [place] Lactate [Moles/Vol] 1.0 mmol/L Normal 0.5-2.2 [facility] Comment on above: Order Comment: Speci men Type: VENOUS BLOOD SPECIMENOrdering Facility: [facility] Address: [address] [place] [address] Performed By: #### 2 4344-4 ####[facility] LABIA [id number] [place] [address] [place] Methemoglobin (Bld) [Mass fraction] 0.7 % Normal 0.0-1.5 [facility] Comment on above: Order Comment: Speci men Type: VENOUS BLOOD SPECIMENOrdering Facility: [facility] Address: [address] [place] [address] Performed By: #### 2 4344-4 ####[facility] LABCLIA [id number] [place] [address] [place] Oxygen (BldV) [Partial pressure] 44 mm[Hg] Normal 35-45 [facility] Comment on above: Order Comment: Speci men Type: VENOUS BLOOD SPECIMENOrdering Facility: [facility] Address: [address] [place], [place] [address] Performed By: #### 2 4344-4 ####[facility] LABCLIA [id number] [address] [address] [place] Oxygen saturation in Venous blood 76 % Normal 60-85 [facility] Comment on above: Order Comment: Speci men Type: VENOUS BLOOD SPECIMENOrdering Facility: [facility] Address: [address] [place] [address] Performed By: #### 2 4344-4 ####[facility] LABCLIA [id number] [place] [address] [place] Oxyhemoglobin (BldV) [Mass fraction] 74 % Normal 60-85 [facility] Comment on above: Order Comment: Speci men Type: VENOUS BLOOD SPECIMENOrdering Facility: [facility] Address: [address] [place] [address] Performed By: #### 2 4344-4 ####[facility] LABCLIA [id number] [place] [address] [place] pH (BldV) 7.37 [pH] Normal 7.32-7.42 [facility] Comment on above: Order Comment: Speci men Type: VENOUS BLOOD SPECIMENOrdering Facility: [facility] Address: [address] [place] [address] Performed By: #### 2 4344-4 ####[facility] LABCLIA [id number] [place] [id number] [place] Sodium [Moles/Vol] 139 mmol/L Normal 136-144 [facility] Comment on above: Order Comment: Speci men Type: VENOUS BLOOD SPECIMENOrdering Facility: [facility] Address: [address] [place], [place] [address] Performed By: #### 2 4344-4 ####[facility] LABCLIA [id number] [place] [address] [place] THERAPY NTon 01-26-2024 THERAPY NT Normal [facility] THERAPY NT Normal [facility] XR CHEST 1V FRONTAL PORTon 1 XR CHEST 1V FRONTAL PORT Normal [facility] ARTERIAL BLOOD GASESon 01-24 Base excess Calc (Bld) [Moles/Vol] 5 mmol/L High 0-2 [facility] Comment on above: Order Comment: Speci men Type: ARTERIAL BLOOD SPECIMENOrdering Facility: [facility] Address: [address] [place] [address] Performed By: #### A LLBG ####[facility] LABCLIA [id number] [place] [address] [place] Body temperature 98.6 [degF] Normal [facility] Comment on above: Order Comment: Speci men Type: ARTERIAL BLOOD SPECIMENOrdering Facility: [facility] Address: [address] [place] [address] Performed By: #### A LLBG ####[facility] LABCLIA [id number] [place] [address] [place] Order Comment: Speci men Type: VENOUS BLOOD SPECIMENOrdering Facility: [facility] Address: [address] [place] [address] Performed By: #### 2 4344-4 ####[facility] LABCLIA [id number] [place] [address] [place] Calcium.ionized (Bld) [Mass/Vol] 1.18 mmol/L Normal 1.08-1.30 [facility] Comment on above: Order Comment: Speci men Type: ARTERIAL BLOOD SPECIMENOrdering Facility: [facility] Address: [address] [place] [address] Performed By: #### A LLBG ####[facility] LABCLIA [id number] [place] [address] [place] Order Comment: Speci men Type: VENOUS BLOOD SPECIMENOrdering Facility: [facility] Address: [address] [place] [address] Performed By: #### 2 4344-4 ####[facility] LABCLIA [id number] [place] [address] [place] Calcium.ionized adjusted to pH 7.4 (BldA) [Moles/Vol] 1.19 mmol/L Normal 1.08-1.30 [facility] Comment on above: Order Comment: Speci men Type: ARTERIAL BLOOD SPECIMENOrdering Facility: [facility] Address: [address] [place] [address] Performed By: #### A LLBG ####[facility] LABIA [id number] [place] [address] [place] Carboxyhemoglobin (BldA) [Mass fraction] 1.7 % Normal 0.0-2.0 [facility] Comment on above: Order Comment: Speci men Type: ARTERIAL BLOOD SPECIMENOrdering Facility: [facility] Address: [address] [place] [address] Result Comment: Carb oxyhemoglobin Reference Range for Smokers: 2.0-8.0% Performed By: #### A LLBG ####[facility] LABIA [id number] [place] [address] [place] CO2 (Bld) [Partial pressure] 46 mm Hg Normal 36-46 [facility] Comment on above: Order Comment: Speci men Type: ARTERIAL BLOOD SPECIMENOrdering Facility: [facility] Address: [address] [place] [address] Performed By: #### A LLBG ####[facility] LABCLIA [id number] [place] [address] [place] Glucose [Mass/Vol] 125 mg/dL High 60-105 [facility] Comment on above: Order Comment: Speci men Type: ARTERIAL BLOOD SPECIMENOrdering Facility: [facility] Address: [address] [place] [address] Performed By: #### A LLBG ####[facility] LABCLIA [id number] [place] [address] [place] HCO3 (Bld) [Moles/Vol] 30 mmol/L High 22-26 [facility] Comment on above: Order Comment: Speci men Type: ARTERIAL BLOOD SPECIMENOrdering Facility: [facility] Address: [address] [place] [address] Performed By: #### A LLBG ####[facility] LABCLIA [id number] [place] [address] [place] Hematocrit (Bld) [Volume fraction] 32.3 % Low 39.0-51.0 [facility] Comment on above: Order Comment: Speci men Type: ARTERIAL BLOOD SPECIMENOrdering Facility: [facility] Address: [address] [place] [address] Performed By: #### A LLBG ####[facility] LABIA [id number] [place] [address] [place] Hemoglobin (Bld) [Mass/Vol] 10.5 g/dL Low 13.0-17.0 [facility] Comment on above: Order Comment: Speci men Type: ARTERIAL BLOOD SPECIMENOrdering Facility: [facility] Address: [address] [place] [address] Performed By: #### A LLBG ####[facility] LABCLIA [id number] [place] [address] [place] Lactate [Moles/Vol] 1.3 mmol/L Normal 0.5-2.2 [facility] Comment on above: Order Comment: Speci men Type: ARTERIAL BLOOD SPECIMENOrdering Facility: [facility] Address: [address] [place] [address] Performed By: #### A LLBG ####[facility] LABCLIA [id number] [place] [address] [place] LITERS 4 Liters/min Normal [facility] Comment on above: Order Comment: Speci men Type: ARTERIAL BLOOD SPECIMENOrdering Facility: [facility] Address: [address] [place] [address] Performed By: #### A LLBG ####[facility] LABCLIA [id number] [place] [address] [place] Methemoglobin (Bld) [Mass fraction] 0.7 % Normal 0.0-1.5 [facility] Comment on above: Order Comment: Speci men Type: ARTERIAL BLOOD SPECIMENOrdering Facility: [facility] Address: [address] [place] [address] Performed By: #### A LLBG ####[facility] LABCLIA [id number] [place] [address] [place] O2 THERAPY Positive Normal [facility] Comment on above: Order Comment: Speci men Type: ARTERIAL BLOOD SPECIMENOrdering Facility: [facility] Address: [address] [place] [address] Performed By: #### A LLBG ####[facility] LABCLIA [id number] [place] [address] [place] Order Comment: Speci men Type: VENOUS BLOOD SPECIMENOrdering Facility: [facility] Address: [address] [place] [address] Performed By: #### 2 4344-4 ####[facility] LABCLIA [id number] [place] [address] [place] Oxygen (Bld) [Partial pressure] 109 mm Hg High 85-95 [facility] Comment on above: Order Comment: Speci men Type: ARTERIAL BLOOD SPECIMENOrdering Facility: [facility] Address: [address] [place] [address] Performed By: #### A LLBG ####[facility] LABCLIA [id number] [id number] [address] [place] Oxyhemoglobin (BldA) [Mass fraction] 96 % Normal 95-98 [facility] Comment on above: Order Comment: Speci men Type: ARTERIAL BLOOD SPECIMENOrdering Facility: [facility] Address: [address] [place] [address] Performed By: #### A LLBG ####[facility] LABCLIA [id number] [place] [address] [place] pH (Bld) 7.42 [pH] Normal 7.35-7.45 [facility] Comment on above: Order Comment: Speci men Type: ARTERIAL BLOOD SPECIMENOrdering Facility: [facility] Address: [address] [place] [address] Performed By: #### A LLBG ####[facility] LABCLIA [id number] [place] [address] [place] Potassium [Moles/Vol] 4.6 mmol/L Normal 3.5-5.0 [facility] Comment on above: Order Comment: Speci men Type: ARTERIAL BLOOD SPECIMENOrdering Facility: [facility] Address: [address] [place] [address] Performed By: #### A LLBG ####[facility] LABCLIA [id number] [place] [address] [place] Sodium [Moles/Vol] 139 mmol/L Normal 136-144 [facility] Comment on above: Order Comment: Speci men Type: ARTERIAL BLOOD SPECIMENOrdering Facility: [facility] Address: [address] [place] [address] Performed By: #### A LLBG ####[facility] LABCLIA [id number] [place] [address] [place] Order Comment: Speci men Type: VENOUS BLOOD SPECIMENOrdering Facility: [facility] Address: [address] [place] [address] Performed By: #### 2 4344-4 ####[facility] LABCLIA [id number] [place] [address] [place] Base excess Calc (Bld) [Moles/Vol] 5 mmol/L High 0-2 [facility] Comment on above: Order Comment: Speci men Type: ARTERIAL BLOOD SPECIMENOrdering Facility: [facility] Address: [address] [place] [address] Performed By: #### A LLBG ####[facility] [id number] [place] [address] [place] Calcium.ionized adjusted to pH 7.4 (BldA) [Moles/Vol] 1.18 mmol/L Normal 1.08-1.30 [facility] Comment on above: Order Comment: Speci men Type: ARTERIAL BLOOD SPECIMENOrdering Facility: [facility] Address: [address] [place] [address] Performed By: #### A LLBG ####[facility] [id number] [place] [address] [place] Carboxyhemoglobin (BldA) [Mass fraction] 1.1 % Normal 0.0-2.0 [facility] Comment on above: Order Comment: Speci men Type: ARTERIAL BLOOD SPECIMENOrdering Facility: [facility] Address: [address] [place] [address] Result Comment: Carb oxyhemoglobin Reference Range for Smokers: 2.0-8.0% Performed By: #### A LLBG ####[facility] LABIA [id number] [place] [address] [place] CO2 (Bld) [Partial pressure] 46 mm Hg Normal 36-46 [facility] Comment on above: Order Comment: Speci men Type: ARTERIAL BLOOD SPECIMENOrdering Facility: [facility] Address: [address] [place] [address] Performed By: #### A LLBG ####[facility] LABIA [id number] [place] [address] [place] Glucose [Mass/Vol] 132 mg/dL High 60-105 [facility] Comment on above: Order Comment: Speci men Type: ARTERIAL BLOOD SPECIMENOrdering Facility: [facility] Address: [address] [place] [address] Performed By: #### A LLBG ####[facility] LABCLIA [id number] [place] [address] [place] HCO3 (Bld) [Moles/Vol] 29 mmol/L High 22-26 [facility] Comment on above: Order Comment: Speci men Type: ARTERIAL BLOOD SPECIMENOrdering Facility: [facility] Address: [address] [place] [address] Performed By: #### A LLBG ####[facility] LABCLIA [id number] [place] [address] [place] Hematocrit (Bld) [Volume fraction] 33.5 % Low 39.0-51.0 [facility] Comment on above: Order Comment: Speci men Type: ARTERIAL BLOOD SPECIMENOrdering Facility: [facility] Address: [address] [place] [address] Performed By: #### A LLBG ####[facility] LABCLIA [id number] [place] [address] [place] Hemoglobin (Bld) [Mass/Vol] 10.8 g/dL Low 13.0-17.0 [facility] Comment on above: Order Comment: Speci men Type: ARTERIAL BLOOD SPECIMENOrdering Facility: [facility] Address: [address] [place] [address] Performed By: #### A LLBG ####[facility] LABCLIA [id number] [place] [address] [place] Lactate [Moles/Vol] 1.2 mmol/L Normal 0.5-2.2 [facility] Comment on above: Order Comment: Speci men Type: ARTERIAL BLOOD SPECIMENOrdering Facility: [facility] Address: [address] [place] [address] Performed By: #### A LLBG ####[facility] LABIA [id number] [place] [address] [place] Methemoglobin (Bld) [Mass fraction] 0.9 % Normal 0.0-1.5 [facility] Comment on above: Order Comment: Speci men Type: ARTERIAL BLOOD SPECIMENOrdering Facility: [facility] Address: [address] [place] [address] Performed By: #### A LLBG ####[facility] LABIA [id number] [place] [address] [place] Oxygen (Bld) [Partial pressure] 142 mm Hg High 85-95 [facility] Comment on above: Order Comment: Speci men Type: ARTERIAL BLOOD SPECIMENOrdering Facility: [facility] Address: [address] [place] [address] Performed By: #### A LLBG ####[facility] LABIA [id number] [place] [address] [place] Oxyhemoglobin (BldA) [Mass fraction] 97 % Normal 95-98 [facility] Comment on above: Order Comment: Speci men Type: ARTERIAL BLOOD SPECIMENOrdering Facility: [facility] Address: [address] [place] [address] Performed By: #### A LLBG ####[facility] LABIA [id number] [place] [id number] [place] pH (Bld) 7.42 [pH] Normal 7.35-7.45 [facility] Comment on above: Order Comment: Speci men Type: ARTERIAL BLOOD SPECIMENOrdering Facility: [facility] Address: [address] [place] [address] Performed By: #### A LLBG ####[facility] LABIA [id number] [place] [id number] [place] Potassium [Moles/Vol] 4.4 mmol/L Normal 3.5-5.0 [facility] Comment on above: Order Comment: Speci men Type: ARTERIAL BLOOD SPECIMENOrdering Facility: [facility] Address: [address] [place] [address] Performed By: #### A LLBG ####[facility] LABCLIA [id number] [place] [address] [place] Base excess Calc (Bld) [Moles/Vol] 4 mmol/L High 0-2 [facility] Comment on above: Order Comment: Speci men Type: ARTERIAL BLOOD SPECIMENOrdering Facility: [facility] Address: [address] [place] [address] Performed By: #### A LLBG ####[facility] LABCLIA [id number] [place] [address] [place] Body temperature 98.6 [degF] Normal [facility] Comment on above: Order Comment: Speci men Type: ARTERIAL BLOOD SPECIMENOrdering Facility: [facility] Address: [address] [place] [address] Performed By: #### A LLBG ####[facility] LABCLIA [id number] [place] [address] [place] Order Comment: Speci men Type: VENOUS BLOOD SPECIMENOrdering Facility: [facility] Address: [address] [place] [address] Performed By: #### 2 4344-4 ####[facility] LABCLIA [id number] [place] [address] [place] Calcium.ionized (Bld) [Mass/Vol] 1.21 mmol/L Normal 1.08-1.30 [facility] Comment on above: Order Comment: Speci men Type: ARTERIAL BLOOD SPECIMENOrdering Facility: [facility] Address: [address] [place] [address] Performed By: #### A LLBG ####[facility] LABIA [id number] [place] [address] [place] Calcium.ionized adjusted to pH 7.4 (BldA) [Moles/Vol] 1.21 mmol/L Normal 1.08-1.30 [facility] Comment on above: Order Comment: Speci men Type: ARTERIAL BLOOD SPECIMENOrdering Facility: [facility] Address: [address] [place] [address] Performed By: #### A LLBG ####[facility] [id number] [place] [address] [place] Carboxyhemoglobin (BldA) [Mass fraction] 1.5 % Normal 0.0-2.0 [facility] Comment on above: Order Comment: Speci men Type: ARTERIAL BLOOD SPECIMENOrdering Facility: [facility] Address: [address] [place] [address] Result Comment: Carb oxyhemoglobin Reference Range for Smokers: 2.0-8.0% Performed By: #### A LLBG ####[facility] [id number] [place] [address] [place] CO2 (Bld) [Partial pressure] 48 mm Hg High 36-46 [facility] Comment on above: Order Comment: Speci men Type: ARTERIAL BLOOD SPECIMENOrdering Facility: [facility] Address: [address] [place] [address] Performed By: #### A LLBG ####[facility] LABIA [id number] [place] [address] [place] Glucose [Mass/Vol] 129 mg/dL High 60-105 [facility] Comment on above: Order Comment: Speci men Type: ARTERIAL BLOOD SPECIMENOrdering Facility: [facility] Address: [address] [place] [address] Performed By: #### A LLBG ####[facility] [id number] [place] [address] [place] HCO3 (Bld) [Moles/Vol] 29 mmol/L High 22-26 [facility] Comment on above: Order Comment: Speci men Type: ARTERIAL BLOOD SPECIMENOrdering Facility: [facility] Address: [address] [place] [address] Performed By: #### A LLBG ####[facility] LABCLIA [id number] [place] [address] [place] Hematocrit (Bld) [Volume fraction] 32.4 % Low 39.0-51.0 [facility] Comment on above: Order Comment: Speci men Type: ARTERIAL BLOOD SPECIMENOrdering Facility: [facility] Address: [address] [place] [address] Performed By: #### A LLBG ####[facility] LABCLIA [id number] [place] [address] [place] Hemoglobin (Bld) [Mass/Vol] 10.5 g/dL Low 13.0-17.0 [facility] Comment on above: Order Comment: Speci men Type: ARTERIAL BLOOD SPECIMENOrdering Facility: [facility] Address: [address] [place] [address] Performed By: #### A LLBG ####[facility] LABCLIA [id number] [place] [address] [place] Lactate [Moles/Vol] 1.2 mmol/L Normal 0.5-2.2 [facility] Comment on above: Order Comment: Speci men Type: ARTERIAL BLOOD SPECIMENOrdering Facility: [facility] Address: [address] [place] [address] Performed By: #### A LLBG ####[facility] LABCLIA [id number] [place] [address] [place] Order Comment: Speci men Type: VENOUS BLOOD SPECIMENOrdering Facility: [facility] Address: [address] [place] [address] Performed By: #### 2 4344-4 ####[facility] LABCLIA [id number] [address] [address] [place] LITERS 3 Liters/min Normal [facility] Comment on above: Order Comment: Speci men Type: ARTERIAL BLOOD SPECIMENOrdering Facility: [facility] Address: [address] [place] [id number] Performed By: #### A LLBG ####[facility] LABCLIA [id number] [place] [id number] [place] Order Comment: Speci men Type: VENOUS BLOOD SPECIMENOrdering Facility: [facility] Address: [address] [place] [id number] Performed By: #### 2 4344-4 ####[facility] LABCLIA [id number] [place] [id number] [place] Methemoglobin (Bld) [Mass fraction] 0.9 % Normal 0.0-1.5 [facility] Comment on above: Order Comment: Speci men Type: ARTERIAL BLOOD SPECIMENOrdering Facility: [facility] Address: [address] [place] [id number] Performed By: #### A LLBG ####[facility] LABCLIA [id number] [place] [id number] [place] O2 THERAPY Positive Normal [facility] Comment on above: Order Comment: Speci men Type: ARTERIAL BLOOD SPECIMENOrdering Facility: [facility] Address: [address] [place] [id number] Performed By: #### A LLBG ####[facility] LABCLIA [id number] [place] [id number] [place] Order Comment: Speci men Type: VENOUS BLOOD SPECIMENOrdering Facility: [facility] Address: [address] [place] [id number] Performed By: #### 2 4344-4 ####[facility] LABCLIA [id number] [place] [address] [place] Oxygen (Bld) [Partial pressure] 96 mm Hg High 85-95 [facility] Comment on above: Order Comment: Speci men Type: ARTERIAL BLOOD SPECIMENOrdering Facility: [facility] Address: [address] [place] [address] Performed By: #### A LLBG ####[facility] LABCLIA [id number] [place] [address] [place] Oxyhemoglobin (BldA) [Mass fraction] 96 % Normal 95-98 [facility] Comment on above: Order Comment: Speci men Type: ARTERIAL BLOOD SPECIMENOrdering Facility: [facility] Address: [address] [place] [address] Performed By: #### A LLBG ####[facility] LABIA [id number] [place] [address] [place] pH (Bld) 7.40 [pH] Normal 7.35-7.45 [facility] Comment on above: Order Comment: Speci men Type: ARTERIAL BLOOD SPECIMENOrdering Facility: [facility] Address: [address] [place] [address] Performed By: #### A LLBG ####[facility] LABCLIA [id number] [place] [address] [place] Potassium [Moles/Vol] 4.5 mmol/L Normal 3.5-5.0 [facility] Comment on above: Order Comment: Speci men Type: ARTERIAL BLOOD SPECIMENOrdering Facility: [facility] Address: [address] [place] [address] Performed By: #### A LLBG ####[facility] LABCLIA [id number] [place] [address] [place] Sodium [Moles/Vol] 139 mmol/L Normal 136-144 [facility] Comment on above: Order Comment: Speci men Type: ARTERIAL BLOOD SPECIMENOrdering Facility: [facility] Address: [address] [place] [address] Performed By: #### A LLBG ####[facility] LABCLIA [id number] [place] [address] [place] Base excess Calc (Bld) [Moles/Vol] 4 mmol/L High 0-2 [facility] Comment on above: Order Comment: Speci men Type: ARTERIAL BLOOD SPECIMENOrdering Facility: [facility] Address: [address] [place] [address] Performed By: #### A LLBG ####[facility] LABIA [id number] [place] [address] [place] Body temperature 98.6 [degF] Normal [facility] Comment on above: Order Comment: Speci men Type: ARTERIAL BLOOD SPECIMENOrdering Facility: [facility] Address: [address] [place] [address] Performed By: #### A LLBG ####[facility] LABCLIA [id number] [place] [address] [place] Calcium.ionized (Bld) [Mass/Vol] 1.20 mmol/L Normal 1.08-1.30 [facility] Comment on above: Order Comment: Speci men Type: ARTERIAL BLOOD SPECIMENOrdering Facility: [facility] Address: [address] [place] [address] Performed By: #### A LLBG ####[facility] LABCLIA [id number] [place] [address] [place] Calcium.ionized adjusted to pH 7.4 (BldA) [Moles/Vol] 1.21 mmol/L Normal 1.08-1.30 [facility] Comment on above: Order Comment: Speci men Type: ARTERIAL BLOOD SPECIMENOrdering Facility: [facility] Address: [address] [place] [address] Performed By: #### A LLBG ####[facility] LABCLIA [id number] [place] [address] [place] Carboxyhemoglobin (BldA) [Mass fraction] 1.6 % Normal 0.0-2.0 [facility] Comment on above: Order Comment: Speci men Type: ARTERIAL BLOOD SPECIMENOrdering Facility: [facility] Address: [address] [place] [address] Result Comment: Carb oxyhemoglobin Reference Range for Smokers: 2.0-8.0% Performed By: #### A LLBG ####[facility] LABCLIA [id number] [place] [address] [place] CO2 (Bld) [Partial pressure] 45 mm Hg Normal 36-46 [facility] Comment on above: Order Comment: Speci men Type: ARTERIAL BLOOD SPECIMENOrdering Facility: [facility] Address: [address] [place] [address] Performed By: #### A LLBG ####[facility] LABCLIA [id number] [place] [address] [place] Glucose [Mass/Vol] 130 mg/dL High 60-105 [facility] Comment on above: Order Comment: Speci men Type: ARTERIAL BLOOD SPECIMENOrdering Facility: [facility] Address: [address] [place] [address] Performed By: #### A LLBG ####[facility] LABCLIA [id number] [place] [address] [place] HCO3 (Bld) [Moles/Vol] 28 mmol/L High 22-26 [facility] Comment on above: Order Comment: Speci men Type: ARTERIAL BLOOD SPECIMENOrdering Facility: [facility] Address: [address] [place] [address] Performed By: #### A LLBG ####[facility] LABCLIA [id number] [place] [address] [place] Hematocrit (Bld) [Volume fraction] 32.1 % Low 39.0-51.0 [facility] Comment on above: Order Comment: Speci men Type: ARTERIAL BLOOD SPECIMENOrdering Facility: [facility] Address: [address] [place] [address] Performed By: #### A LLBG ####[facility] LABCLIA [id number] [place] [address] [place] Hemoglobin (Bld) [Mass/Vol] 10.4 g/dL Low 13.0-17.0 [facility] Comment on above: Order Comment: Speci men Type: ARTERIAL BLOOD SPECIMENOrdering Facility: [facility] Address: [address] [place] [address] Performed By: #### A LLBG ####[facility] LABCLIA [id number] [place] [address] [place] Lactate [Moles/Vol] 1.4 mmol/L Normal 0.5-2.2 [facility] Comment on above: Order Comment: Speci men Type: ARTERIAL BLOOD SPECIMENOrdering Facility: [facility] Address: [address] [place] [address] Performed By: #### A LLBG ####[facility] LABCLIA [id number] [place] [address] [place] LITERS 3 Liters/min Normal [facility] Comment on above: Order Comment: Speci men Type: ARTERIAL BLOOD SPECIMENOrdering Facility: [facility] Address: [address] [place] [address] Performed By: #### A LLBG ####[facility] LABCLIA [id number] [place] [address] [place] Methemoglobin (Bld) [Mass fraction] 0.9 % Normal 0.0-1.5 [facility] Comment on above: Order Comment: Speci men Type: ARTERIAL BLOOD SPECIMENOrdering Facility: [facility] Address: [address] [place], [place] [id number] Performed By: #### A LLBG ####[facility] LABCLIA [id number] [place] [address] [place] O2 THERAPY NC = Nasal Cannula Normal [facility] Comment on above: Order Comment: Speci men Type: ARTERIAL BLOOD SPECIMENOrdering Facility: [facility] Address: [address] [place] [phone] Performed By: #### A LLBG ####[facility] LABCLIA [id number] [place] [address] [place] Oxygen (Bld) [Partial pressure] 155 mm Hg High 85-95 [facility] Comment on above: Order Comment: Speci men Type: ARTERIAL BLOOD SPECIMENOrdering Facility: [facility] Address: [address] [place] [address] Performed By: #### A LLBG ####[facility] LABIA [id number] [place] [address] [place] Oxyhemoglobin (BldA) [Mass fraction] 97 % Normal 95-98 [facility] Comment on above: Order Comment: Speci men Type: ARTERIAL BLOOD SPECIMENOrdering Facility: [facility] Address: [address] [place] [address] Performed By: #### A LLBG ####[facility] LABCLIA [id number] [place] [address] [place] pH (Bld) 7.41 [pH] Normal 7.35-7.45 [facility] Comment on above: Order Comment: Speci men Type: ARTERIAL BLOOD SPECIMENOrdering Facility: [facility] Address: [address] [place] [address] Performed By: #### A LLBG ####[facility] LABIA [id number] [place] [address] [place] Potassium [Moles/Vol] 4.5 mmol/L Normal 3.5-5.0 [facility] Comment on above: Order Comment: Speci men Type: ARTERIAL BLOOD SPECIMENOrdering Facility: [facility] Address: [address] [place] [address] Performed By: #### A LLBG ####[facility] LABCLIA [id number] [place] [address] [place] Sodium [Moles/Vol] 139 mmol/L Normal 136-144 [facility] Comment on above: Order Comment: Speci men Type: ARTERIAL BLOOD SPECIMENOrdering Facility: [facility] Address: [address] [place] [address] Performed By: #### A LLBG ####[facility] LABCLIA [id number] [place] [address] [place] Base excess Calc (Bld) [Moles/Vol] 3 mmol/L High 0-2 [facility] Comment on above: Order Comment: Speci men Type: ARTERIAL BLOOD SPECIMENOrdering Facility: [facility] Address: [address] [place] [address] Performed By: #### A LLBG ####[facility] LABCLIA [id number] [place] [address] [place] Calcium.ionized (Bld) [Mass/Vol] 1.21 mmol/L Normal 1.08-1.30 [facility] Comment on above: Order Comment: Speci men Type: ARTERIAL BLOOD SPECIMENOrdering Facility: [facility] Address: [address] [place] [address] Performed By: #### A LLBG ####[facility] LABIA [id number] [place] [address] [place] Calcium.ionized adjusted to pH 7.4 (BldA) [Moles/Vol] 1.22 mmol/L Normal 1.08-1.30 [facility] Comment on above: Order Comment: Speci men Type: ARTERIAL BLOOD SPECIMENOrdering Facility: [facility] Address: [address] [place] [address] Performed By: #### A LLBG ####[facility] LABCLIA [id number] [place] [address] [place] Carboxyhemoglobin (BldA) [Mass fraction] 1.8 % Normal 0.0-2.0 [facility] Comment on above: Order Comment: Speci men Type: ARTERIAL BLOOD SPECIMENOrdering Facility: [facility] Address: [address] [place] [address] Result Comment: Carb oxyhemoglobin Reference Range for Smokers: 2.0-8.0% Performed By: #### A LLBG ####[facility] LABCLIA [id number] [place] [address] [place] CO2 (Bld) [Partial pressure] 44 mm Hg Normal 36-46 [facility] Comment on above: Order Comment: Speci men Type: ARTERIAL BLOOD SPECIMENOrdering Facility: [facility] Address: [address] [place] [address] Performed By: #### A LLBG ####[facility] LABCLIA [id number] [place] [address] [place] Glucose [Mass/Vol] 135 mg/dL High 60-105 [facility] Comment on above: Order Comment: Speci men Type: ARTERIAL BLOOD SPECIMENOrdering Facility: [facility] Address: [address] [place] [address] Performed By: #### A LLBG ####[facility] LABCLIA [id number] [place] [address] [place] Hematocrit (Bld) [Volume fraction] 33.3 % Low 39.0-51.0 [facility] Comment on above: Order Comment: Speci men Type: ARTERIAL BLOOD SPECIMENOrdering Facility: [facility] Address: [address] [place] [address] Performed By: #### A LLBG ####[facility] LABCLIA [id number] [place] [address] [place] Hemoglobin (Bld) [Mass/Vol] 10.8 g/dL Low 13.0-17.0 [facility] Comment on above: Order Comment: Speci men Type: ARTERIAL BLOOD SPECIMENOrdering Facility: [facility] Address: [address] [place] [address] Performed By: #### A LLBG ####[facility] LABCLIA [id number] [place] [address] [place] Methemoglobin (Bld) [Mass fraction] 0.9 % Normal 0.0-1.5 [facility] Comment on above: Order Comment: Speci men Type: ARTERIAL BLOOD SPECIMENOrdering Facility: [facility] Address: [address] [place] [address] Performed By: #### A LLBG ####[facility] [facility] LABCLIA [id number] [place] [address] [place] Oxygen (Bld) [Partial pressure] 171 mm Hg High 85-95 [facility] Comment on above: Order Comment: Speci men Type: ARTERIAL BLOOD SPECIMENOrdering Facility: [facility] Address: [address] [place] [address] Performed By: #### A LLBG ####[facility] LABCLIA [id number] [place] [address] [place] Oxyhemoglobin (BldA) [Mass fraction] 97 % Normal 95-98 [facility] Comment on above: Order Comment: Speci men Type: ARTERIAL BLOOD SPECIMENOrdering Facility: [facility] Address: [address] [place] [address] Performed By: #### A LLBG ####[facility] LABCLIA [id number] [place] [address] [place] pH (Bld) 7.41 [pH] Normal 7.35-7.45 [facility] Comment on above: Order Comment: Speci men Type: ARTERIAL BLOOD SPECIMENOrdering Facility: [facility] Address: [address] [place] [address] Performed By: #### A LLBG ####[facility] LABCLIA [id number] [place] [address] [place] Potassium [Moles/Vol] 4.5 mmol/L Normal 3.5-5.0 [facility] Comment on above: Order Comment: Speci men Type: ARTERIAL BLOOD SPECIMENOrdering Facility: [facility] Address: [address] [place] [address] Performed By: #### A LLBG ####[facility] LABCLIA [id number] [place] [address] [place] Base excess Calc (Bld) [Moles/Vol] 3 mmol/L High 0-2 [facility] Comment on above: Order Comment: Speci men Type: ARTERIAL BLOOD SPECIMENOrdering Facility: [facility] Address: [address] [place] [address] Performed By: #### A LLBG ####[facility] LABIA [id number] [place] [address] [place] Calcium.ionized (Bld) [Mass/Vol] 1.16 mmol/L Normal 1.08-1.30 [facility] Comment on above: Order Comment: Speci men Type: ARTERIAL BLOOD SPECIMENOrdering Facility: [facility] Address: [address] [place] [address] Performed By: #### A LLBG ####[facility] LABIA [id number] [place] [address] [place] Calcium.ionized adjusted to pH 7.4 (BldA) [Moles/Vol] 1.18 mmol/L Normal 1.08-1.30 [facility] Comment on above: Order Comment: Speci men Type: ARTERIAL BLOOD SPECIMENOrdering Facility: [facility] Address: [address] [place] [address] Performed By: #### A LLBG ####[facility] LABIA [id number] [place] [address] [place] Carboxyhemoglobin (BldA) [Mass fraction] 1.2 % Normal 0.0-2.0 [facility] Comment on above: Order Comment: Speci men Type: ARTERIAL BLOOD SPECIMENOrdering Facility: [facility] Address: [address] [place] [address] Result Comment: Carb oxyhemoglobin Reference Range for Smokers: 2.0-8.0% Performed By: #### A LLBG ####[facility] LABCLIA [id number] [place] [address] [place] CO2 (Bld) [Partial pressure] 41 mm Hg Normal 36-46 [facility] Comment on above: Order Comment: Speci men Type: ARTERIAL BLOOD SPECIMENOrdering Facility: [facility] Address: [address] [place] [address] Performed By: #### A LLBG ####[facility] LABCLIA [id number] [place] [address] [place] Glucose [Mass/Vol] 129 mg/dL High 60-105 [facility] Comment on above: Order Comment: Speci men Type: ARTERIAL BLOOD SPECIMENOrdering Facility: [facility] Address: [address] [place] [address] Performed By: #### A LLBG ####[facility] LABCLIA [id number] [place] [address] [place] HCO3 (Bld) [Moles/Vol] 27 mmol/L High 22-26 [facility] Comment on above: Order Comment: Speci men Type: ARTERIAL BLOOD SPECIMENOrdering Facility: [facility] Address: [address] [place] [address] Performed By: #### A LLBG ####[facility] LABCLIA [id number] [place] [address] [place] Hematocrit (Bld) [Volume fraction] 33.7 % Low 39.0-51.0 [facility] Comment on above: Order Comment: Speci men Type: ARTERIAL BLOOD SPECIMENOrdering Facility: [facility] Address: [address] [place] [address] Performed By: #### A LLBG ####[facility] LABCLIA [id number] [place] [address] [place] Hemoglobin (Bld) [Mass/Vol] 10.9 g/dL Low 13.0-17.0 [facility] Comment on above: Order Comment: Speci men Type: ARTERIAL BLOOD SPECIMENOrdering Facility: [facility] Address: [address] [place] [address] Performed By: #### A LLBG ####[facility] LABCLIA [id number] [place] [address] [place] Methemoglobin (Bld) [Mass fraction] 1.7 % High 0.0-1.5 [facility] Comment on above: Order Comment: Speci men Type: ARTERIAL BLOOD SPECIMENOrdering Facility: [facility] Address: [address] [place] [address] Performed By: #### A LLBG ####[facility] LABCLIA [id number] [place] [address] [place] Oxygen (Bld) [Partial pressure] 116 mm Hg High 85-95 [facility] Comment on above: Order Comment: Speci men Type: ARTERIAL BLOOD SPECIMENOrdering Facility: [facility] Address: [address] [place] [address] Performed By: #### A LLBG ####[facility] LABCLIA [id number] [place] [id number] [place] Oxyhemoglobin (BldA) [Mass fraction] 96 % Normal 95-98 [facility] Comment on above: Order Comment: Speci men Type: ARTERIAL BLOOD SPECIMENOrdering Facility: [facility] Address: [address] [place], [place] [address] Performed By: #### A LLBG ####[facility] LABCLIA [id number] [place] [address] [place] pH (Bld) 7.44 [pH] Normal 7.35-7.45 [facility] Comment on above: Order Comment: Speci men Type: ARTERIAL BLOOD SPECIMENOrdering Facility: [facility] Address: [address] [place] [address] Performed By: #### A LLBG ####[facility] LABCLIA [id number] [place] [address] [place] PO2 / FIO2 RATIO 387 mmHg Normal >300 [facility] Comment on above: Order Comment: Speci men Type: ARTERIAL BLOOD SPECIMENOrdering Facility: [facility] Address: [address] [place] [address] Performed By: #### A LLBG ####[facility] LABCLIA [id number] [place] [address] [place] Potassium [Moles/Vol] 4.2 mmol/L Normal 3.5-5.0 [facility] Comment on above: Order Comment: Speci men Type: ARTERIAL BLOOD SPECIMENOrdering Facility: [facility] Address: [address] [place] [address] Performed By: #### A LLBG ####[facility] LABCLIA [id number] [place] [address] [place] Sodium [Moles/Vol] 138 mmol/L Normal 136-144 [facility] Comment on above: Order Comment: Speci men Type: ARTERIAL BLOOD SPECIMENOrdering Facility: [facility] Address: [address] [place] [address] Performed By: #### A LLBG ####[facility] LABCLIA [id number] [place] [address] [place] Base excess Calc (Bld) [Moles/Vol] 4 mmol/L High 0-2 [facility] Comment on above: Order Comment: Speci men Type: ARTERIAL BLOOD SPECIMENOrdering Facility: [facility] Address: [address] [place] [address] Performed By: #### A LLBG ####[facility] LABCLIA [id number] [place] [address] [place] Body temperature 98.6 [degF] Normal [facility] Comment on above: Order Comment: Speci men Type: ARTERIAL BLOOD SPECIMENOrdering Facility: [facility] Address: [address] [place] [address] Performed By: #### A LLBG ####[facility] LABCLIA [id number] [address] [place] Order Comment: Speci men Type: VENOUS BLOOD SPECIMENOrdering Facility: [facility] Address: [address] [place] [address] Performed By: #### 2 4344-4 ####[facility] LABCLIA [id number] [place] [address] [place] Calcium.ionized (Bld) [Mass/Vol] 1.18 mmol/L Normal 1.08-1.30 [facility] Comment on above: Order Comment: Speci men Type: ARTERIAL BLOOD SPECIMENOrdering Facility: [facility] Address: [address] [place] [address] Performed By: #### A LLBG ####[facility] LABCLIA [id number] [address] [place] Order Comment: Speci men Type: VENOUS BLOOD SPECIMENOrdering Facility: [facility] Address: [address] [place] [address] Performed By: #### 2 4344-4 ####[facility] LABCLIA [id number] [place] [address] [place] Calcium.ionized adjusted to pH 7.4 (BldA) [Moles/Vol] 1.21 mmol/L Normal 1.08-1.30 [facility] Comment on above: Order Comment: Speci men Type: ARTERIAL BLOOD SPECIMENOrdering Facility: [facility] Address: [address] [place] [address] Performed By: #### A LLBG ####[facility] LABCLIA [id number] [place] [address] [place] Carboxyhemoglobin (BldA) [Mass fraction] 1.3 % Normal 0.0-2.0 [facility] Comment on above: Order Comment: Speci men Type: ARTERIAL BLOOD SPECIMENOrdering Facility: [facility] Address: [address] [place] [address] Result Comment: Carb oxyhemoglobin Reference Range for Smokers: 2.0-8.0% Performed By: #### A LLBG ####[facility] LABCLIA [id number] [place] [address] [place] CO2 (Bld) [Partial pressure] 41 mm Hg Normal 36-46 [facility] Comment on above: Order Comment: Speci men Type: ARTERIAL BLOOD SPECIMENOrdering Facility: [facility] Address: [address] [place] [address] Performed By: #### A LLBG ####[facility] LABCLIA [id number] [place] [address] [place] FIO2 30 % Normal [facility] Comment on above: Order Comment: Speci men Type: ARTERIAL BLOOD SPECIMENOrdering Facility: [facility] Address: [address] [place] [address] Performed By: #### A LLBG ####[facility] LABCLIA [id number] [place] [address] [place] Order Comment: Speci men Type: VENOUS BLOOD SPECIMENOrdering Facility: [facility] Address: [address] [place] [address] Performed By: #### 2 4344-4 ####[facility] LABCLIA [id number] [place] [address] [place] Glucose [Mass/Vol] 109 mg/dL High 60-105 [facility] Comment on above: Order Comment: Speci men Type: ARTERIAL BLOOD SPECIMENOrdering Facility: [facility] Address: [address] [place] [address] Performed By: #### A LLBG ####[facility] LABCLIA [id number] [place] [address] [place] HCO3 (Bld) [Moles/Vol] 28 mmol/L High 22-26 [facility] Comment on above: Order Comment: Speci men Type: ARTERIAL BLOOD SPECIMENOrdering Facility: [facility] Address: [address] [place] [address] Performed By: #### A LLBG ####[facility] LABCLIA [id number] [place] [address] [place] Hematocrit (Bld) [Volume fraction] 32.7 % Low 39.0-51.0 [facility] Comment on above: Order Comment: Speci men Type: ARTERIAL BLOOD SPECIMENOrdering Facility: [facility] Address: [address] [place] [address] Performed By: #### A LLBG ####[facility] LABCLIA [id number] [place] [address] [place] Hemoglobin (Bld) [Mass/Vol] 10.6 g/dL Low 13.0-17.0 [facility] Comment on above: Order Comment: Speci men Type: ARTERIAL BLOOD SPECIMENOrdering Facility: [facility] Address: [address] [place] [address] Performed By: #### A LLBG ####[facility] LABCLIA [id number] [place] [address] [place] Lactate [Moles/Vol] 1.2 mmol/L Normal 0.5-2.2 [facility] Comment on above: Order Comment: Speci men Type: ARTERIAL BLOOD SPECIMENOrdering Facility: [facility] Address: [address] [place] [address] Performed By: #### A LLBG ####[facility] LABCLIA [id number] [place] [address] [place] Methemoglobin (Bld) [Mass fraction] 0.8 % Normal 0.0-1.5 [facility] Comment on above: Order Comment: Speci men Type: ARTERIAL BLOOD SPECIMENOrdering Facility: [facility] Address: [address] [place] [address] Performed By: #### A LLBG ####[facility] LABCLIA [id number] [place] [address] [place] Order Comment: Speci men Type: VENOUS BLOOD SPECIMENOrdering Facility: [facility] Address: [address] [place] [address] Performed By: #### 2 4344-4 ####[facility] LABCLIA [id number] [place] [address] [place] O2 THERAPY VENT=Ventilator Normal [facility] Comment on above: Order Comment: Speci men Type: ARTERIAL BLOOD SPECIMENOrdering Facility: [facility] Address: [address] [place] [address] Performed By: #### A LLBG ####[facility] LABCLIA [id number] [place] [address] [place] Order Comment: Speci men Type: VENOUS BLOOD SPECIMENOrdering Facility: [facility] Address: [address] [place] [address] Performed By: #### 2 4344-4 ####[facility] LABCLIA [id number] [place] [address] [place] Oxygen (Bld) [Partial pressure] 127 mm Hg High 85-95 [facility] Comment on above: Order Comment: Speci men Type: ARTERIAL BLOOD SPECIMENOrdering Facility: [facility] Address: [address] [place] [address] Performed By: #### A LLBG ####[facility] LABCLIA [id number] [place] [address] [place] Oxyhemoglobin (BldA) [Mass fraction] 97 % Normal 95-98 [facility] Comment on above: Order Comment: Speci men Type: ARTERIAL BLOOD SPECIMENOrdering Facility: [facility] Address: [address] [place] [address] Performed By: #### A LLBG ####[facility] LABCLIA [id number] [place] [address] [place] pH (Bld) 7.45 [pH] Normal 7.35-7.45 [facility] Comment on above: Order Comment: Speci men Type: ARTERIAL BLOOD SPECIMENOrdering Facility: [facility] Address: [address] [place] [address] Performed By: #### A LLBG ####[facility] LABCLIA [id number] [place] [address] [place] PO2 / FIO2 RATIO 423 mmHg Normal >300 [facility] Comment on above: Order Comment: Speci men Type: ARTERIAL BLOOD SPECIMENOrdering Facility: [facility] Address: [address] [place] [address] Performed By: #### A LLBG ####[facility] LABCLIA [id number] [place] [address] [place] Potassium [Moles/Vol] 4.1 mmol/L Normal 3.5-5.0 [facility] Comment on above: Order Comment: Speci men Type: ARTERIAL BLOOD SPECIMENOrdering Facility: [facility] Address: [address] [place] [address] Performed By: #### A LLBG ####[facility] LABCLIA [id number] [place] [address] [place] Sodium [Moles/Vol] 139 mmol/L Normal 136-144 [facility] Comment on above: Order Comment: Speci men Type: ARTERIAL BLOOD SPECIMENOrdering Facility: [facility] Address: [address] [place] [address] Performed By: #### A LLBG ####[facility] LABCLIA [id number] [place] [address] [place] Base excess Calc (Bld) [Moles/Vol] 3 mmol/L High 0-2 [facility] Comment on above: Order Comment: Speci men Type: ARTERIAL BLOOD SPECIMENOrdering Facility: [facility] Address: [address] [place] [address] Performed By: #### A LLBG ####[facility] LABCLIA [id number] [place] [address] [place] Body temperature 98.6 [degF] Normal [facility] Comment on above: Order Comment: Speci men Type: ARTERIAL BLOOD SPECIMENOrdering Facility: [facility] Address: [address] [place] [address] Performed By: #### A LLBG ####[facility] LABCLIA [id number] [address] [place] Order Comment: Speci men Type: VENOUS BLOOD SPECIMENOrdering Facility: [facility] Address: [address] [place] [address] Performed By: #### 2 4344-4 ####[facility] LABCLIA [id number] [place] [address] [place] Calcium.ionized (Bld) [Mass/Vol] 1.19 mmol/L Normal 1.08-1.30 [facility] Comment on above: Order Comment: Speci men Type: ARTERIAL BLOOD SPECIMENOrdering Facility: [facility] Address: [address] [place] [address] Performed By: #### A LLBG ####[facility] LABCLIA [id number] [place] [address] [place] Order Comment: Speci men Type: VENOUS BLOOD SPECIMENOrdering Facility: [facility] Address: [address] [place] [address] Performed By: #### 2 4344-4 ####[facility] LABIA [id number] [place] [address] [place] Calcium.ionized adjusted to pH 7.4 (BldA) [Moles/Vol] 1.20 mmol/L Normal 1.08-1.30 [facility] Comment on above: Order Comment: Speci men Type: ARTERIAL BLOOD SPECIMENOrdering Facility: [facility] Address: [address] [place] [address] Performed By: #### A LLBG ####[facility] LABIA [id number] [place] [address] [place] Carboxyhemoglobin (BldA) [Mass fraction] 1.4 % Normal 0.0-2.0 [facility] Comment on above: Order Comment: Speci men Type: ARTERIAL BLOOD SPECIMENOrdering Facility: [facility] Address: [address] [place] [address] Result Comment: Carb oxyhemoglobin Reference Range for Smokers: 2.0-8.0% Performed By: #### A LLBG ####[facility] LABIA [id number] [place] [address] [place] CO2 (Bld) [Partial pressure] 43 mm Hg Normal 36-46 [facility] Comment on above: Order Comment: Speci men Type: ARTERIAL BLOOD SPECIMENOrdering Facility: [facility] Address: [address] [place] [address] Performed By: #### A LLBG ####[facility] LABIA [id number] [place] [address] [place] FIO2 30 % Normal [facility] Comment on above: Order Comment: Speci men Type: ARTERIAL BLOOD SPECIMENOrdering Facility: [facility] Address: [address] [place] [address] Performed By: #### A LLBG ####[facility] LABCLIA [id number] [place] [address] [place] Order Comment: Speci men Type: VENOUS BLOOD SPECIMENOrdering Facility: [facility] Address: [address] [place] [address] Performed By: #### 2 4344-4 ####[facility] LABCLIA [id number] [place] [address] [place] Glucose [Mass/Vol] 116 mg/dL High 60-105 [facility] Comment on above: Order Comment: Speci men Type: ARTERIAL BLOOD SPECIMENOrdering Facility: [facility] Address: [address] [place] [address] Performed By: #### A LLBG ####[facility] LABCLIA [id number] [place] [address] [place] HCO3 (Bld) [Moles/Vol] 27 mmol/L High 22-26 [facility] Comment on above: Order Comment: Speci men Type: ARTERIAL BLOOD SPECIMENOrdering Facility: [facility] Address: [address] [place] [address] Performed By: #### A LLBG ####[facility] LABCLIA [id number] [place] [address] [place] Hematocrit (Bld) [Volume fraction] 31.4 % Low 39.0-51.0 [facility] Comment on above: Order Comment: Speci men Type: ARTERIAL BLOOD SPECIMENOrdering Facility: [facility] Address: [address] [place] [address] Performed By: #### A LLBG ####[facility] LABCLIA [id number] [place] [address] [place] Hemoglobin (Bld) [Mass/Vol] 10.1 g/dL Low 13.0-17.0 [facility] Comment on above: Order Comment: Speci men Type: ARTERIAL BLOOD SPECIMENOrdering Facility: [facility] Address: [address] [place] [address] Performed By: #### A LLBG ####[facility] LABCLIA [id number] [place] [address] [place] Lactate [Moles/Vol] 1.4 mmol/L Normal 0.5-2.2 [facility] Comment on above: Order Comment: Speci men Type: ARTERIAL BLOOD SPECIMENOrdering Facility: [facility] Address: [address] [place] [address] Performed By: #### A LLBG ####[facility] LABCLIA [id number] [place] [address] [place] Methemoglobin (Bld) [Mass fraction] 0.7 % Normal 0.0-1.5 [facility] Comment on above: Order Comment: Speci men Type: ARTERIAL BLOOD SPECIMENOrdering Facility: [facility] Address: [address] [place] [address] Performed By: #### A LLBG ####[facility] LABCLIA [id number] [place] [address] [place] O2 THERAPY VENT=Ventilator Normal [facility] Comment on above: Order Comment: Speci men Type: ARTERIAL BLOOD SPECIMENOrdering Facility: [facility] Address: [address] [place] [address] Performed By: #### A LLBG ####[facility] LABCLIA [id number] [place] [address] [place] Order Comment: Speci men Type: VENOUS BLOOD SPECIMENOrdering Facility: [facility] Address: [address] [place] [address] Performed By: #### 2 4344-4 ####[facility] LABCLIA [id number] [place] [address] [place] Oxygen (Bld) [Partial pressure] 136 mm Hg High 85-95 [facility] Comment on above: Order Comment: Speci men Type: ARTERIAL BLOOD SPECIMENOrdering Facility: [facility] Address: [address] [place] [address] Performed By: #### A LLBG ####[facility] LABCLIA [id number] [place] [address] [place] Oxyhemoglobin (BldA) [Mass fraction] 97 % Normal 95-98 [facility] Comment on above: Order Comment: Speci men Type: ARTERIAL BLOOD SPECIMENOrdering Facility: [facility] Address: [address] [place] [address] Performed By: #### A LLBG ####[facility] LABCLIA [id number] [place] [address] [place] PEEP/CPAP 8 cmH2O Normal [facility] Comment on above: Order Comment: Speci men Type: ARTERIAL BLOOD SPECIMENOrdering Facility: [facility] Address: [address] [place] [address] Performed By: #### A LLBG ####[facility] LABCLIA [id number] [place] [address] [place] Order Comment: Speci men Type: VENOUS BLOOD SPECIMENOrdering Facility: [facility] Address: [address] [place] [address] Performed By: #### 2 4344-4 ####[facility] LABCLIA [id number] [place] [address] [place] pH (Bld) 7.41 [pH] Normal 7.35-7.45 [facility] Comment on above: Order Comment: Speci men Type: ARTERIAL BLOOD SPECIMENOrdering Facility: [facility] Address: [address] [place] [address] Performed By: #### A LLBG ####[facility] LABCLIA [id number] [place] [address] [place] PO2 / FIO2 RATIO 453 mmHg Normal >300 [facility] Comment on above: Order Comment: Speci men Type: ARTERIAL BLOOD SPECIMENOrdering Facility: [facility] Address: [address] [place] [address] Performed By: #### A LLBG ####[facility] LABCLIA [id number] [place] [address] [place] Sodium [Moles/Vol] 136 mmol/L Normal 136-144 [facility] Comment on above: Order Comment: Speci men Type: ARTERIAL BLOOD SPECIMENOrdering Facility: [facility] Address: [address] [place] [address] Performed By: #### A LLBG ####[facility] LABCLIA [id number] [place] [address] [place] Base excess Calc (Bld) [Moles/Vol] 2 mmol/L Normal 0-2 [facility] Comment on above: Order Comment: Speci men Type: ARTERIAL BLOOD SPECIMENOrdering Facility: [facility] Address: [address] [place] [address] Performed By: #### A LLBG ####[facility] LABCLIA [id number] [place] [address] [place] Calcium.ionized (Bld) [Mass/Vol] 1.18 mmol/L Normal 1.08-1.30 [facility] Comment on above: Order Comment: Speci men Type: ARTERIAL BLOOD SPECIMENOrdering Facility: [facility] Address: [address] [place] [address] Performed By: #### A LLBG ####[facility] LABCLIA [id number] [place] [address] [place] Carboxyhemoglobin (BldA) [Mass fraction] 1.2 % Normal 0.0-2.0 [facility] Comment on above: Order Comment: Speci men Type: ARTERIAL BLOOD SPECIMENOrdering Facility: [facility] Address: [address] [place] [address] Result Comment: Carb oxyhemoglobin Reference Range for Smokers: 2.0-8.0% Performed By: #### A LLBG ####[facility] LABCLIA [id number] [place] [address] [place] CO2 (Bld) [Partial pressure] 42 mm Hg Normal 36-46 [facility] Comment on above: Order Comment: Speci men Type: ARTERIAL BLOOD SPECIMENOrdering Facility: [facility] Address: [address] [place] [address] Performed By: #### A LLBG ####[facility] LABCLIA [id number] [place] [address] [place] Glucose [Mass/Vol] 115 mg/dL High 60-105 [facility] Comment on above: Order Comment: Speci men Type: ARTERIAL BLOOD SPECIMENOrdering Facility: [facility] Address: [address] [place] [address] Performed By: #### A LLBG ####[facility] LABCLIA [id number] [place] [address] [place] HCO3 (Bld) [Moles/Vol] 26 mmol/L Normal 22-26 [facility] Comment on above: Order Comment: Speci men Type: ARTERIAL BLOOD SPECIMENOrdering Facility: [facility] Address: [address] [place] [address] Performed By: #### A LLBG ####[facility] LABCLIA [id number] [place] [address] [place] Hematocrit (Bld) [Volume fraction] 31.9 % Low 39.0-51.0 [facility] Comment on above: Order Comment: Speci men Type: ARTERIAL BLOOD SPECIMENOrdering Facility: [facility] Address: [address] [place] [address] Performed By: #### A LLBG ####[facility] LABCLIA [id number] [place] [address] [place] Hemoglobin (Bld) [Mass/Vol] 10.3 g/dL Low 13.0-17.0 [facility] Comment on above: Order Comment: Speci men Type: ARTERIAL BLOOD SPECIMENOrdering Facility: [facility] Address: [address] [place] [address] Performed By: #### A LLBG ####[facility] LABCLIA [id number] [place] [address] [place] Methemoglobin (Bld) [Mass fraction] 1.9 % High 0.0-1.5 [facility] Comment on above: Order Comment: Speci men Type: ARTERIAL BLOOD SPECIMENOrdering Facility: [facility] Address: [address] [place] [address] Performed By: #### A LLBG ####[facility] LABCLIA [id number] [place] [address] [place] Oxygen (Bld) [Partial pressure] 124 mm Hg High 85-95 [facility] Comment on above: Order Comment: Speci men Type: ARTERIAL BLOOD SPECIMENOrdering Facility: [facility] Address: [address] [place] [address] Performed By: #### A LLBG ####[facility] LABCLIA [id number] [place] [address] [place] Oxyhemoglobin (BldA) [Mass fraction] 96 % Normal 95-98 [facility] Comment on above: Order Comment: Speci men Type: ARTERIAL BLOOD SPECIMENOrdering Facility: [facility] Address: [address] [place] [address] Performed By: #### A LLBG ####[facility] LABCLIA [id number] [place] [address] [place] pH (Bld) 7.42 [pH] Normal 7.35-7.45 [facility] Comment on above: Order Comment: Speci men Type: ARTERIAL BLOOD SPECIMENOrdering Facility: [facility] Address: [address] [place] [address] Performed By: #### A LLBG ####[facility] LABCLIA [id number] [place] [address] [place] PO2 / FIO2 RATIO 413 mmHg Normal >300 [facility] Comment on above: Order Comment: Speci men Type: ARTERIAL BLOOD SPECIMENOrdering Facility: [facility] Address: [address] [place] [address] Performed By: #### A LLBG ####[facility] LABCLIA [id number] [place] [address] [place] Base excess Calc (Bld) [Moles/Vol] 2 mmol/L Normal 0-2 [facility] Comment on above: Order Comment: Speci men Type: ARTERIAL BLOOD SPECIMENOrdering Facility: [facility] Address: [address] [place] [address] Performed By: #### A LLBG ####[facility] LABCLIA [id number] [address] [place] Body temperature 98.6 [degF] Normal [facility] Comment on above: Order Comment: Speci men Type: ARTERIAL BLOOD SPECIMENOrdering Facility: [facility] Address: [address] [place] [address] Performed By: #### A LLBG ####[facility] LABCLIA [id number] [place] [address] [place] Order Comment: Speci men Type: VENOUS BLOOD SPECIMENOrdering Facility: [facility] Address: [address] [place] [address] Performed By: #### 2 4344-4 ####[facility] LABCLIA [id number] [place] [address] [place] Calcium.ionized (Bld) [Mass/Vol] 1.21 mmol/L Normal 1.08-1.30 [facility] Comment on above: Order Comment: Speci men Type: ARTERIAL BLOOD SPECIMENOrdering Facility: [facility] Address: [address] [place] [address] Performed By: #### A LLBG ####[facility] LABIA [id number] [place] [address] [place] Calcium.ionized adjusted to pH 7.4 (BldA) [Moles/Vol] 1.22 mmol/L Normal 1.08-1.30 [facility] Comment on above: Order Comment: Speci men Type: ARTERIAL BLOOD SPECIMENOrdering Facility: [facility] Address: [address] [place] [address] Performed By: #### A LLBG ####[facility] LABIA [id number] [place] [address] [place] Carboxyhemoglobin (BldA) [Mass fraction] 0.7 % Normal 0.0-2.0 [facility] Comment on above: Order Comment: Speci men Type: ARTERIAL BLOOD SPECIMENOrdering Facility: [facility] Address: [address] [place] [address] Result Comment: Carb oxyhemoglobin Reference Range for Smokers: 2.0-8.0% Performed By: #### A LLBG ####[facility] LABIA [id number] [place] [address] [place] CO2 (Bld) [Partial pressure] 42 mm Hg Normal 36-46 [facility] Comment on above: Order Comment: Speci men Type: ARTERIAL BLOOD SPECIMENOrdering Facility: [facility] Address: [address] [place] [address] Performed By: #### A LLBG ####[facility] LABIA [id number] [place] [address] [place] FIO2 30 % Normal [facility] Comment on above: Order Comment: Speci men Type: ARTERIAL BLOOD SPECIMENOrdering Facility: [facility] Address: [address] [place] [address] Performed By: #### A LLBG ####[facility] LABCLIA [id number] [place] [address] [place] Order Comment: Speci men Type: VENOUS BLOOD SPECIMENOrdering Facility: [facility] Address: [address] [place] [address] Performed By: #### 2 4344-4 ####[facility] LABCLIA [id number] [place] [address] [place] Glucose [Mass/Vol] 121 mg/dL High 60-105 [facility] Comment on above: Order Comment: Speci men Type: ARTERIAL BLOOD SPECIMENOrdering Facility: [facility] Address: [address] [place] [address] Performed By: #### A LLBG ####[facility] LABCLIA [id number] [place] [address] [place] Order Comment: Speci men Type: VENOUS BLOOD SPECIMENOrdering Facility: [facility] Address: [address] [place] [address] Performed By: #### 2 4344-4 ####[facility] LABCLIA [id number] [place] [address] [place] HCO3 (Bld) [Moles/Vol] 26 mmol/L Normal 22-26 [facility] Comment on above: Order Comment: Speci men Type: ARTERIAL BLOOD SPECIMENOrdering Facility: [facility] Address: [address] [place] [address] Performed By: #### A LLBG ####[facility] LABCLIA [id number] [place] [address] [place] Hematocrit (Bld) [Volume fraction] 32.4 % Low 39.0-51.0 [facility] Comment on above: Order Comment: Speci men Type: ARTERIAL BLOOD SPECIMENOrdering Facility: [facility] Address: [address] [place] [address] Performed By: #### A LLBG ####[facility] LABCLIA [id number] [place] [address] [place] Hemoglobin (Bld) [Mass/Vol] 10.5 g/dL Low 13.0-17.0 [facility] Comment on above: Order Comment: Speci men Type: ARTERIAL BLOOD SPECIMENOrdering Facility: [facility] Address: [address] [place] [address] Performed By: #### A LLBG ####[facility] LABCLIA [id number] [place] [address] [place] Lactate [Moles/Vol] 1.8 mmol/L Normal 0.5-2.2 [facility] Comment on above: Order Comment: Speci men Type: ARTERIAL BLOOD SPECIMENOrdering Facility: [facility] Address: [address] [place] [address] Performed By: #### A LLBG ####[facility] LABIA [id number] [place] [address] [place] Methemoglobin (Bld) [Mass fraction] 1.2 % Normal 0.0-1.5 [facility] Comment on above: Order Comment: Speci men Type: ARTERIAL BLOOD SPECIMENOrdering Facility: [facility] Address: [address] [place] [address] Performed By: #### A LLBG ####[facility] LABIA [id number] [place] [address] [place] O2 THERAPY VENT=Ventilator Normal [facility] Comment on above: Order Comment: Speci men Type: ARTERIAL BLOOD SPECIMENOrdering Facility: [facility] Address: [address] [place] [address] Performed By: #### A LLBG ####[facility] LABCLIA [id number] [place] [address] [place] Order Comment: Speci men Type: VENOUS BLOOD SPECIMENOrdering Facility: [facility] Address: [address] [place] [address] Performed By: #### 2 4344-4 ####[facility] LABCLIA [id number] [place] [address] [place] Oxygen (Bld) [Partial pressure] 133 mm Hg High 85-95 [facility] Comment on above: Order Comment: Speci men Type: ARTERIAL BLOOD SPECIMENOrdering Facility: [facility] Address: [address] [place] [address] Performed By: #### A LLBG ####[facility] LABCLIA [id number] [place] [address] [place] Oxyhemoglobin (BldA) [Mass fraction] 97 % Normal 95-98 [facility] Comment on above: Order Comment: Speci men Type: ARTERIAL BLOOD SPECIMENOrdering Facility: [facility] Address: [address] [place] [address] Performed By: #### A LLBG ####[facility] LABCLIA [id number] [place] [address] [place] PEEP/CPAP 8 cmH2O Normal [facility] Comment on above: Order Comment: Speci men Type: ARTERIAL BLOOD SPECIMENOrdering Facility: [facility] Address: [address] [place] [address] Performed By: #### A LLBG ####[facility] LABCLIA [id number] [place] [address] [place] pH (Bld) 7.41 [pH] Normal 7.35-7.45 [facility] Comment on above: Order Comment: Speci men Type: ARTERIAL BLOOD SPECIMENOrdering Facility: [facility] Address: [address] [place] [address] Performed By: #### A LLBG ####[facility] LABCLIA [id number] [place] [address] [place] PO2 / FIO2 RATIO 443 mmHg Normal >300 [facility] Comment on above: Order Comment: Speci men Type: ARTERIAL BLOOD SPECIMENOrdering Facility: [facility] Address: [address] [place] [address] Performed By: #### A LLBG ####[facility] LABCLIA [id number] [place] [address] [place] Potassium [Moles/Vol] 4.2 mmol/L Normal 3.5-5.0 [facility] Comment on above: Order Comment: Speci men Type: ARTERIAL BLOOD SPECIMENOrdering Facility: [facility] Address: [address] [place] [address] Performed By: #### A LLBG ####[facility] LABCLIA [id number] [place] [address] [place] Sodium [Moles/Vol] 137 mmol/L Normal 136-144 [facility] Comment on above: Order Comment: Speci men Type: ARTERIAL BLOOD SPECIMENOrdering Facility: [facility] Address: [address] [place] [address] Performed By: #### A LLBG ####[facility] LABCLIA [id number] [place] [address] [place] Order Comment: Speci men Type: VENOUS BLOOD SPECIMENOrdering Facility: [facility] Address: [address] [place] [address] Performed By: #### 2 4344-4 ####[facility] LABCLIA [id number] [place] [address] [place] CBC panel Auto (Bld)on 01-24 Erythrocyte distribution width (RBC) [Ratio] 15.0 % Normal 11.5-15.0 [facility] Comment on above: Order Comment: Speci men Type: BLOOD SPECIMENOrdering Facility: [facility] Address: [address] [place] [address] Performed By: #### 5 8410-2 ####[facility] LABCLIA [id number] [place] [address] [place] Hematocrit (Bld) [Volume fraction] 32.0 % Low 39.0-51.0 [facility] Comment on above: Order Comment: Speci men Type: BLOOD SPECIMENOrdering Facility: [facility] Address: [address] [place] [address] Performed By: #### 5 8410-2 ####[facility] LABIA [id number] [place] [address] [place] MCH (RBC) [Entitic mass] 27.4 pg Normal 26.0-34.0 [facility] Comment on above: Order Comment: Speci men Type: BLOOD SPECIMENOrdering Facility: [facility] Address: [address] [place] [address] Performed By: #### 5 8410-2 ####[facility] LABIA [id number] [place] [address] [place] MCHC (RBC) [Mass/Vol] 32.2 g/dL Normal 30.5-36.0 [facility] Comment on above: Order Comment: Speci men Type: BLOOD SPECIMENOrdering Facility: [facility] Address: [address] [place] [address] Performed By: #### 5 8410-2 ####[facility] LABIA [id number] [place] [address] [place] MCV (RBC) [Entitic vol] 85.1 fL Normal 80.0-100.0 [facility] Comment on above: Order Comment: Speci men Type: BLOOD SPECIMENOrdering Facility: [facility] Address: [address] [place] [address] Performed By: #### 5 8410-2 ####[facility] LABIA [id number] [place] [address] [place] Nucleated RBC (Bld) [#/Vol] 10*3/uL Normal <0.01 [facility] Comment on above: Order Comment: Speci men Type: BLOOD SPECIMENOrdering Facility: [facility] Address: [address] [place] [address] Performed By: #### 5 8410-2 ####[facility] LABIA [id number] [place] [address] [place] Platelet mean volume (Bld) [Entitic vol] 10.9 fL Normal 9.0-12.7 [facility] Comment on above: Order Comment: Speci men Type: BLOOD SPECIMENOrdering Facility: [facility] Address: [address] [place] [address] Performed By: #### 5 8410-2 ####[facility] [id number] [place] [address] [place] Platelets (Bld) [#/Vol] 100 10*3/uL Low 150-400 [facility] Comment on above: Order Comment: Speci men Type: BLOOD SPECIMENOrdering Facility: [facility] Address: [address] [place] [address] Result Comment: Resu lts checked and verified.No clot detected. Performed By: #### 5 8410-2 ####[facility] LABIA [id number] [place] [address] [place] RBC (Bld) [#/Vol] 3.76 10*6/uL Low 4.20-6.00 [facility] Comment on above: Order Comment: Speci men Type: BLOOD SPECIMENOrdering Facility: [facility] Address: [address] [place] [address] Performed By: #### 5 8410-2 ####[facility] LABIA [id number] [place] [address] [place] WBC (Bld) [#/Vol] 13.62 10*3/uL High 3.70-11.00 [facility] Comment on above: Order Comment: Speci men Type: BLOOD SPECIMENOrdering Facility: [facility] Address: [address] [place] [address] Performed By: #### 5 8410-2 ####[facility] LABCLIA [id number] [place] [address] [place] Comp Metab 2000 Pnl SerPlon 01-25-2024 Potassium [Moles/Vol] 4.3 mmol/L Normal 3.5-5.0 [facility] Comment on above: Order Comment: Speci men Type: BLOOD SPECIMENOrdering Facility: [facility] Address: [address] [place] [address] Performed By: #### 2 4323-8 ####[facility] LABCLIA [id number] [address] [place] Order Comment: Speci men Type: VENOUS BLOOD SPECIMENOrdering Facility: [facility] Address: [address] [place] [address] Performed By: #### 2 4344-4 ####[facility] LABCLIA [id number] [address] [place] Order Comment: Speci men Type: ARTERIAL BLOOD SPECIMENOrdering Facility: [facility] Address: [address] [place] [address] Performed By: #### A LLBG ####[facility] LABCLIA [id number] [address] [place] Sodium [Moles/Vol] 140 mmol/L Normal 136-144 [facility] Comment on above: Order Comment: Speci men Type: BLOOD SPECIMENOrdering Facility: [facility] Address: [address] [place] [id number] Performed By: #### 2 4323-8 ####[facility] LABCLIA [id number] [address] [place] Order Comment: Speci men Type: ARTERIAL BLOOD SPECIMENOrdering Facility: [facility] Address: [address] [place] [address] Performed By: #### A LLBG ####[facility] LABCLIA [id number] [place] [address] [place] Order Comment: Speci men Type: VENOUS BLOOD SPECIMENOrdering Facility: [facility] Address: [address] [place] [address] Performed By: #### 2 4344-4 ####[facility] LABCLIA [id number] [place] [address] [place] Comprehensive metabolic 2000 panelon 01-25-2024 Albumin [Mass/Vol] 4.1 g/dL Normal 3.9-4.9 [facility] Comment on above: Order Comment: Speci men Type: BLOOD SPECIMENOrdering Facility: [facility] Address: [address] [place] [address] Performed By: #### 2 4323-8 ####[facility] LABCLIA [id number] [place] [address] [place] ALP [Catalytic activity/Vol] 41 U/L Normal 38-113 [facility] Comment on above: Order Comment: Speci men Type: BLOOD SPECIMENOrdering Facility: [facility] Address: [address] [place] [address] Performed By: #### 2 4323-8 ####[facility] LABCLIA [id number] [place] [address] [place] ALT [Catalytic activity/Vol] 12 U/L Normal 10-54 [facility] Comment on above: Order Comment: Speci men Type: BLOOD SPECIMENOrdering Facility: [facility] Address: [address] [place] [address] Performed By: #### 2 4323-8 ####[facility] LABCLIA [id number] [place] [address] [place] Anion gap [Moles/Vol] 13 mmol/L Normal 8-15 [facility] Comment on above: Order Comment: Speci men Type: BLOOD SPECIMENOrdering Facility: [facility] Address: [address] [place] [address] Performed By: #### 2 4323-8 ####[facility] LABCLIA [id number] [place] [address] [place] AST [Catalytic activity/Vol] 49 U/L High 14-40 [facility] Comment on above: Order Comment: Speci men Type: BLOOD SPECIMENOrdering Facility: [facility] Address: [address] [place] [address] Performed By: #### 2 4323-8 ####[facility] LABCLIA [id number] [place] [address] [place] Bilirubin [Mass/Vol] 0.5 mg/dL Normal 0.2-1.3 [facility] Comment on above: Order Comment: Speci men Type: BLOOD SPECIMENOrdering Facility: [facility] Address: [address] [place] [address] Performed By: #### 2 4323-8 ####[facility] LABCLIA [id number] [place] [address] [place] Calcium [Mass/Vol] 8.9 mg/dL Normal 8.5-10.2 [facility] Comment on above: Order Comment: Speci men Type: BLOOD SPECIMENOrdering Facility: [facility] Address: [address] [place] [address] Performed By: #### 2 4323-8 ####[facility] LABCLIA [id number] [place] [id number] [place] Chloride [Moles/Vol] 101 mmol/L Normal 98-107 [facility] Comment on above: Order Comment: Speci men Type: BLOOD SPECIMENOrdering Facility: [facility] Address: [address] [place], [place] [address] Performed By: #### 2 4323-8 ####[facility] LABCLIA [id number] [place] [address] [place] CO2 [Moles/Vol] 24 mmol/L Normal 22-30 [facility] Comment on above: Order Comment: Speci men Type: BLOOD SPECIMENOrdering Facility: [facility] Address: [address] [place] [address] Performed By: #### 2 4323-8 ####[facility] LABCLIA [id number] [place] [address] [place] Creatinine [Mass/Vol] 1.14 mg/dL Normal 0.73-1.22 [facility] Comment on above: Order Comment: Speci men Type: BLOOD SPECIMENOrdering Facility: [facility] Address: [address] [place] [address] Performed By: #### 2 4323-8 ####[facility] LABCLIA [id number] [place] [address] [place] Creatinine and Glomerular filtration rate.predicted panel (S/P/Bld) 71 mL/min/1.73m??? Normal >=60 [facility] Comment on above: Order Comment: Speci men Type: BLOOD SPECIMENOrdering Facility: [facility] Address: [address] [place] [address] Result Comment: Talisha mated Glomerular Filtration Rate [...] actual GFR. Performed By: #### 2 4323-8 ####[facility] LABCLIA [id number] [place] [address] [place] Glucose [Mass/Vol] 122 mg/dL High 74-99 [facility] Comment on above: Order Comment: Speci men Type: BLOOD SPECIMENOrdering Facility: [facility] Address: [address] [place] [address] Result Comment: The [place] [employer] (ADA) provides guidance for cutoff [...] Standards of Medical Care in Diabetes 2016, [place] [employer]. Diabetes Care. 2016.39(Suppl 1). Performed By: #### 2 4323-8 ####[facility] LABIA [id number] [place] [address] [place] Protein [Mass/Vol] 6.1 g/dL Low 6.3-8.0 [facility] Comment on above: Order Comment: Speci men Type: BLOOD SPECIMENOrdering Facility: [facility] Address: [address] [place] [address] Performed By: #### 2 4323-8 ####[facility] [id number] [place] [address] [place] Urea nitrogen [Mass/Vol] 34 mg/dL High 9-24 [facility] Comment on above: Order Comment: Speci men Type: BLOOD SPECIMENOrdering Facility: [facility] Address: [address] [place] [phone] Performed By: #### 2 4323-8 ####[facility] [id number] [place] [address] [place] Gas + CO Pnl BldVon 01-25-20 Body temperature 98.6 [degF] Normal [facility] Comment on above: Order Comment: Speci men Type: VENOUS BLOOD SPECIMENOrdering Facility: [facility] Address: [address] [place] [phone] Performed By: #### 2 4344-4 ####[facility] LABCLIA [id number] [address] [place] Order Comment: Speci men Type: ARTERIAL BLOOD SPECIMENOrdering Facility: [facility] Address: [address] [place] [address] Performed By: #### A LLBG ####[facility] LABCLIA [id number] [place] [address] [place] Calcium.ionized (Bld) [Mass/Vol] 1.16 mmol/L Normal 1.08-1.30 [facility] Comment on above: Order Comment: Speci men Type: VENOUS BLOOD SPECIMENOrdering Facility: [facility] Address: [address] [place] [address] Performed By: #### 2 4344-4 ####[facility] LABCLIA [id number] [address] [place] Order Comment: Speci men Type: ARTERIAL BLOOD SPECIMENOrdering Facility: [facility] Address: [address] [place] [address] Performed By: #### A LLBG ####[facility] LABCLIA [id number] [place] [address] [place] O2 THERAPY Positive Normal [facility] Comment on above: Order Comment: Speci men Type: VENOUS BLOOD SPECIMENOrdering Facility: [facility] Address: [address] [place] [address] Performed By: #### 2 4344-4 ####[facility] LABCLIA [id number] [place] [address] [place] Order Comment: Speci men Type: ARTERIAL BLOOD SPECIMENOrdering Facility: [facility] Address: [address] [place] [address] Performed By: #### A LLBG ####[facility] LABCLIA [id number] [place] [address] [place] Body temperature 98.6 [degF] Normal [facility] Comment on above: Order Comment: Speci men Type: VENOUS BLOOD SPECIMENOrdering Facility: [facility] Address: [address] [place] [address] Performed By: #### 2 4344-4 ####[facility] LABCLIA [id number] [place] [address] [place] Order Comment: Speci men Type: ARTERIAL BLOOD SPECIMENOrdering Facility: [facility] Address: [address] [place] [address] Performed By: #### A LLBG ####[facility] LABCLIA [id number] [place] [address] [place] HCO3 (Bld) [Moles/Vol] 28 mmol/L High 22-26 [facility] Comment on above: Order Comment: Speci men Type: VENOUS BLOOD SPECIMENOrdering Facility: [facility] Address: [address] [place] [address] Performed By: #### 2 4344-4 ####[facility] LABCLIA [id number] [address] [place] Order Comment: Speci men Type: ARTERIAL BLOOD SPECIMENOrdering Facility: [facility] Address: [address] [place] [address] Performed By: #### A LLBG ####[facility] LABCLIA [id number] [place] [address] [place] Lactate [Moles/Vol] 1.3 mmol/L Normal 0.5-2.2 [facility] Comment on above: Order Comment: Speci men Type: VENOUS BLOOD SPECIMENOrdering Facility: [facility] Address: [address] [place] [address] Performed By: #### 2 4344-4 ####[facility] LABCLIA [id number] [place] [address] [place] Order Comment: Speci men Type: ARTERIAL BLOOD SPECIMENOrdering Facility: [facility] Address: [address] [place] [phone] Performed By: #### A LLBG ####[facility] LABCLIA [id number] [place] [id number] [place] LITERS 4 Liters/min Normal [facility] Comment on above: Order Comment: Speci men Type: VENOUS BLOOD SPECIMENOrdering Facility: [facility] Address: [address] [place], [place] [address] Performed By: #### 2 4344-4 ####[facility] LABCLIA [id number] [place] [address] [place] Order Comment: Speci men Type: ARTERIAL BLOOD SPECIMENOrdering Facility: [facility] Address: [address] [place], [place] [address] Performed By: #### A LLBG ####[facility] LABCLIA [id number] [place] [address] [place] O2 THERAPY NC = Nasal Cannula Normal [facility] Comment on above: Order Comment: Speci men Type: VENOUS BLOOD SPECIMENOrdering Facility: [facility] Address: [address] [place], [place] [address] Performed By: #### 2 4344-4 ####[facility] LABCLIA [id number] [place] [address] [place] Order Comment: Speci men Type: ARTERIAL BLOOD SPECIMENOrdering Facility: [facility] Address: [address] [place] [phone] Performed By: #### A LLBG ####[facility] LABCLIA [id number] [place] [id number] [place] Body temperature 98.6 [degF] Normal [facility] Comment on above: Order Comment: Speci men Type: VENOUS BLOOD SPECIMENOrdering Facility: [facility] Address: [address] [place], [place] [address] Performed By: #### 2 4344-4 ####[facility] LABCLIA [id number] [place] [address] [place] Order Comment: Speci men Type: ARTERIAL BLOOD SPECIMENOrdering Facility: [facility] Address: [address] [place] [address] Performed By: #### A LLBG ####[facility] LABCLIA [id number] [place] [address] [place] FIO2 30 % Normal [facility] Comment on above: Order Comment: Speci men Type: VENOUS BLOOD SPECIMENOrdering Facility: [facility] Address: [address] [place] [address] Performed By: #### 2 4344-4 ####[facility] LABCLIA [id number] [address] [place] Order Comment: Speci men Type: ARTERIAL BLOOD SPECIMENOrdering Facility: [facility] Address: [address] [place] [address] Performed By: #### A LLBG ####[facility] LABCLIA [id number] [place] [address] [place] Lactate [Moles/Vol] 1.4 mmol/L Normal 0.5-2.2 [facility] Comment on above: Order Comment: Speci men Type: VENOUS BLOOD SPECIMENOrdering Facility: [facility] Address: [address] [place] [address] Performed By: #### 2 4344-4 ####[facility] LABCLIA [id number] [place] [address] [place] Order Comment: Speci men Type: ARTERIAL BLOOD SPECIMENOrdering Facility: [facility] Address: [address] [place] [address] Performed By: #### A LLBG ####[facility] LABCLIA [id number] [place] [address] [place] O2 THERAPY VENT=Ventilator Normal [facility] Comment on above: Order Comment: Speci men Type: VENOUS BLOOD SPECIMENOrdering Facility: [facility] Address: [address] [place] [address] Performed By: #### 2 4344-4 ####[facility] LABCLIA [id number] [address] [place] Order Comment: Speci men Type: ARTERIAL BLOOD SPECIMENOrdering Facility: [facility] Address: [address] [place] [address] Performed By: #### A LLBG ####[facility] LABCLIA [id number] [address] [place] Body temperature 98.6 [degF] Normal [facility] Comment on above: Order Comment: Speci men Type: VENOUS BLOOD SPECIMENOrdering Facility: [facility] Address: [address] [place] [address] Performed By: #### 2 4344-4 ####[facility] LABCLIA [id number] [address] [place] Order Comment: Speci men Type: ARTERIAL BLOOD SPECIMENOrdering Facility: [facility] Address: [address] [place] [address] Performed By: #### A LLBG ####[facility] LABCLIA [id number] [address] [place] Calcium.ionized adjusted to pH 7.4 (BldA) [Moles/Vol] 1.20 mmol/L Normal 1.08-1.30 [facility] Comment on above: Order Comment: Speci men Type: VENOUS BLOOD SPECIMENOrdering Facility: [facility] Address: [address] [place] [address] Performed By: #### 2 4344-4 ####[facility] LABCLIA [id number] [address] [place] Order Comment: Speci men Type: ARTERIAL BLOOD SPECIMENOrdering Facility: [facility] Address: [address] [phone] Performed By: #### A LLBG ####[facility] LABCLIA [id number] [address] [address] [place] FIO2 30 % Normal [facility] Comment on above: Order Comment: Speci men Type: VENOUS BLOOD SPECIMENOrdering Facility: [facility] Address: [address] [phone] Performed By: #### 2 4344-4 ####[facility] LABCLIA [id number] [place] [address] [place] Order Comment: Speci men Type: ARTERIAL BLOOD SPECIMENOrdering Facility: [facility] Address: [address] [phone] Performed By: #### A LLBG ####[facility] LABCLIA [id number] [place] [address] [place] Lactate [Moles/Vol] 1.3 mmol/L Normal 0.5-2.2 [facility] Comment on above: Order Comment: Speci men Type: VENOUS BLOOD SPECIMENOrdering Facility: [facility] Address: [address] [place], [place] [address] Performed By: #### 2 4344-4 ####[facility] LABCLIA [id number] [place] [id number] [place] Order Comment: Speci men Type: ARTERIAL BLOOD SPECIMENOrdering Facility: [facility] Address: [address] [phone] Performed By: #### A LLBG ####[facility] LABCLIA [id number] [place] [id number] [place] O2 THERAPY VENT=Ventilator Normal [facility] Comment on above: Order Comment: Speci men Type: VENOUS BLOOD SPECIMENOrdering Facility: [facility] Address: [address] [place], [place] [address] Performed By: #### 2 4344-4 ####[facility] LABCLIA [id number] [place] [id number] [place] Order Comment: Speci men Type: ARTERIAL BLOOD SPECIMENOrdering Facility: [facility] Address: [address] [phone] Performed By: #### A LLBG ####[facility] LABCLIA [id number] [place] [id number] [place] PEEP/CPAP 8 cmH2O Normal [facility] Comment on above: Order Comment: Speci men Type: VENOUS BLOOD SPECIMENOrdering Facility: [facility] Address: [address] [place] [address] Performed By: #### 2 4344-4 ####[facility] LABCLIA [id number] [place] [address] [place] Order Comment: Speci men Type: ARTERIAL BLOOD SPECIMENOrdering Facility: [facility] Address: [address] [phone] Performed By: #### A LLBG ####[facility] LABCLIA [id number] [place] [address] [place] Sodium [Moles/Vol] 137 mmol/L Normal 136-144 [facility] Comment on above: Order Comment: Speci men Type: VENOUS BLOOD SPECIMENOrdering Facility: [facility] Address: [address] [phone] Performed By: #### 2 4344-4 ####[facility] LABCLIA [id number] [place] [id number] [place] Order Comment: Speci men Type: ARTERIAL BLOOD SPECIMENOrdering Facility: [facility] Address: [address] [phone] Performed By: #### A LLBG ####[facility] LABCLIA [id number] [place] [id number] [place] Hemoglobin (Bld) [Mass/Vol] 10.3 g/dL Low 13.0-17.0 [facility] Comment on above: Order Comment: Speci men Type: VENOUS BLOOD SPECIMENOrdering Facility: [facility] Address: [address] [place] [address] Performed By: #### 2 4344-4 ####[facility] LABCLIA [id number] [place] [address] [place] Order Comment: Speci men Type: BLOOD SPECIMENOrdering Facility: [facility] Address: [address] [place] [address] Performed By: #### 5 8410-2 ####[facility] LABCLIA [id number] [place] [address] [place] Gas and Carbon monoxide pane l (BldV)on 01-25-2024 Base excess Calc (BldV) [Moles/Vol] 6 mmol/L High 0-2 [facility] Comment on above: Order Comment: Speci men Type: VENOUS BLOOD SPECIMENOrdering Facility: [facility] Address: [address] [place] [address] Performed By: #### 2 4344-4 ####[facility] LABIA [id number] [place] [address] [place] Calcium.ionized adjusted to pH 7.4 (BldA) [Moles/Vol] 1.17 mmol/L Normal 1.08-1.30 [facility] Comment on above: Order Comment: Speci men Type: VENOUS BLOOD SPECIMENOrdering Facility: [facility] Address: [address] [place] [address] Performed By: #### 2 4344-4 ####[facility] LABCLIA [id number] [place] [address] [place] Carboxyhemoglobin (BldV) [Mass fraction] 1.6 % Normal 0.0-2.0 [facility] Comment on above: Order Comment: Speci men Type: VENOUS BLOOD SPECIMENOrdering Facility: [facility] Address: [address] [phone] Result Comment: Carb oxyhemoglobin Reference Range for Smokers: 2.0-8.0% Performed By: #### 2 4344-4 ####[facility] LABCLIA [id number] [address] [address] [place] CO2 (BldV) [Partial pressure] 52 mm[Hg] Normal 42-55 [facility] Comment on above: Order Comment: Speci men Type: VENOUS BLOOD SPECIMENOrdering Facility: [facility] Address: [address] [place] [address] Performed By: #### 2 4344-4 ####[facility] LABCLIA [id number] [place] [address] [place] DATE/TIME NOTIFIED [id number] PM Normal [facility] Comment on above: Order Comment: Speci men Type: VENOUS BLOOD SPECIMENOrdering Facility: [facility] Address: [address] [place] [address] Performed By: #### 2 4344-4 ####[facility] LABCLIA [id number] [place] [address] [place] Glucose [Mass/Vol] 124 mg/dL High 60-105 [facility] Comment on above: Order Comment: Speci men Type: VENOUS BLOOD SPECIMENOrdering Facility: [facility] Address: [address] [place] [address] Performed By: #### 2 4344-4 ####[facility] LABCLIA [id number] [place] [id number] [place] HCO3 (Bld) [Moles/Vol] 31 mmol/L High 24-28 [facility] Comment on above: Order Comment: Speci men Type: VENOUS BLOOD SPECIMENOrdering Facility: [facility] Address: [address] [place] [address] Performed By: #### 2 4344-4 ####[facility] LABIA [id number] [place] [address] [place] Hematocrit (Bld) [Volume fraction] 32.0 % Low 39.0-51.0 [facility] Comment on above: Order Comment: Speci men Type: VENOUS BLOOD SPECIMENOrdering Facility: [facility] Address: [address] [place] [address] Performed By: #### 2 4344-4 ####[facility] LABIA [id number] [place] [address] [place] Hemoglobin (Bld) [Mass/Vol] 10.4 g/dL Low 13.0-17.0 [facility] Comment on above: Order Comment: Speci men Type: VENOUS BLOOD SPECIMENOrdering Facility: [facility] Address: [address] [place] [address] Performed By: #### 2 4344-4 ####[facility] LABIA [id number] [place] [address] [place] Lactate [Moles/Vol] 1.1 mmol/L Normal 0.5-2.2 [facility] Comment on above: Order Comment: Speci men Type: VENOUS BLOOD SPECIMENOrdering Facility: [facility] Address: [address] [place] [address] Performed By: #### 2 4344-4 ####[facility] LABIA [id number] [place] [address] [place] Methemoglobin (Bld) [Mass fraction] 0.8 % Normal 0.0-1.5 [facility] Comment on above: Order Comment: Speci men Type: VENOUS BLOOD SPECIMENOrdering Facility: [facility] Address: [address] [place] [address] Performed By: #### 2 4344-4 ####[facility] LABIA [id number] [id number] [address] [place] NOTIFIED WHOM NO CALL Q50 KHASSENZAHL Normal [facility] Comment on above: Order Comment: Speci men Type: VENOUS BLOOD SPECIMENOrdering Facility: [facility] Address: [address] [place] [address] Performed By: #### 2 4344-4 ####[facility] LABCLIA [id number] [address] [address] [place] Oxygen (BldV) [Partial pressure] 40 mm[Hg] Normal 35-45 [facility] Comment on above: Order Comment: Speci men Type: VENOUS BLOOD SPECIMENOrdering Facility: [facility] Address: [address] [place] [address] Performed By: #### 2 4344-4 ####[facility] LABCLIA [id number] [place] [address] [place] Oxygen saturation in Venous blood 72 % Normal 60-85 [facility] Comment on above: Order Comment: Speci men Type: VENOUS BLOOD SPECIMENOrdering Facility: [facility] Address: [address] [place], [place] [address] Performed By: #### 2 4344-4 ####[facility] LABCLIA [id number] [place] [address] [place] Oxyhemoglobin (BldV) [Mass fraction] 70 % Normal 60-85 [facility] Comment on above: Order Comment: Speci men Type: VENOUS BLOOD SPECIMENOrdering Facility: [facility] Address: [address] [place] [address] Performed By: #### 2 4344-4 ####[facility] LABCLIA [id number] [place] [id number] [place] pH (BldV) 7.39 [pH] Normal 7.32-7.42 [facility] Comment on above: Order Comment: Speci men Type: VENOUS BLOOD SPECIMENOrdering Facility: [facility] Address: [address] [place] [address] Performed By: #### 2 4344-4 ####[facility] LABIA [id number] [place] [address] [place] Potassium [Moles/Vol] 4.4 mmol/L Normal 3.5-5.0 [facility] Comment on above: Order Comment: Speci men Type: VENOUS BLOOD SPECIMENOrdering Facility: [facility] Address: [address] [place] [address] Performed By: #### 2 4344-4 ####[facility] [id number] [place] [address] [place] Base excess Calc (BldV) [Moles/Vol] 6 mmol/L High 0-2 [facility] Comment on above: Order Comment: Speci men Type: VENOUS BLOOD SPECIMENOrdering Facility: [facility] Address: [address] [place] [address] Performed By: #### 2 4344-4 ####[facility] [id number] [place] [address] [place] Calcium.ionized adjusted to pH 7.4 (BldA) [Moles/Vol] 1.15 mmol/L Normal 1.08-1.30 [facility] Comment on above: Order Comment: Speci men Type: VENOUS BLOOD SPECIMENOrdering Facility: [facility] [place] Address: [address] [place] [address] Performed By: #### 2 4344-4 ####[facility] [id number] [place] [address] [place] Carboxyhemoglobin (BldV) [Mass fraction] 1.6 % Normal 0.0-2.0 [facility] Comment on above: Order Comment: Speci men Type: VENOUS BLOOD SPECIMENOrdering Facility: [facility] Address: [address] [place] [address] Result Comment: Carb oxyhemoglobin Reference Range for Smokers: 2.0-8.0% Performed By: #### 2 4344-4 ####[facility] LABCLIA [id number] [place] [address] [place] CO2 (BldV) [Partial pressure] 52 mm[Hg] Normal 42-55 [facility] Comment on above: Order Comment: Speci men Type: VENOUS BLOOD SPECIMENOrdering Facility: [facility] Address: [address] [place] [address] Performed By: #### 2 4344-4 ####[facility] LABCLIA [id number] [place] [address] [place] Glucose [Mass/Vol] 128 mg/dL High 60-105 [facility] Comment on above: Order Comment: Speci men Type: VENOUS BLOOD SPECIMENOrdering Facility: [facility] Address: [address] [place] [address] Performed By: #### 2 4344-4 ####[facility] LABCLIA [id number] [place] [address] [place] HCO3 (Bld) [Moles/Vol] 31 mmol/L High 24-28 [facility] Comment on above: Order Comment: Speci men Type: VENOUS BLOOD SPECIMENOrdering Facility: [facility] Address: [address] [place] [address] Performed By: #### 2 4344-4 ####[facility] LABCLIA [id number] [place] [address] [place] Hematocrit (Bld) [Volume fraction] 33.1 % Low 39.0-51.0 [facility] Comment on above: Order Comment: Speci men Type: VENOUS BLOOD SPECIMENOrdering Facility: [facility] Address: [address] [place] [address] Performed By: #### 2 4344-4 ####[facility] LABCLIA [id number] [place] [address] [place] Hemoglobin (Bld) [Mass/Vol] 10.7 g/dL Low 13.0-17.0 [facility] Comment on above: Order Comment: Speci men Type: VENOUS BLOOD SPECIMENOrdering Facility: [facility] Address: [address] [place] [address] Performed By: #### 2 4344-4 ####[facility] LABCLIA [id number] [place] [address] [place] Lactate [Moles/Vol] 1.1 mmol/L Normal 0.5-2.2 [facility] Comment on above: Order Comment: Speci men Type: VENOUS BLOOD SPECIMENOrdering Facility: [facility] Address: [address] [place] [address] Performed By: #### 2 4344-4 ####[facility] LABIA [id number] [place] [address] [place] Methemoglobin (Bld) [Mass fraction] 1.4 % Normal 0.0-1.5 [facility] Comment on above: Order Comment: Speci men Type: VENOUS BLOOD SPECIMENOrdering Facility: [facility] Address: [address] [place] [address] Performed By: #### 2 4344-4 ####[facility] LABCLIA [id number] [place] [address] [place] Oxygen (BldV) [Partial pressure] 40 mm[Hg] Normal 35-45 [facility] Comment on above: Order Comment: Speci men Type: VENOUS BLOOD SPECIMENOrdering Facility: [facility] Address: [address] [place] [address] Performed By: #### 2 4344-4 ####[facility] LABIA [id number] [place] [address] [place] Oxygen saturation in Venous blood 72 % Normal 60-85 [facility] Comment on above: Order Comment: Speci men Type: VENOUS BLOOD SPECIMENOrdering Facility: [facility] Address: [address] [place] [address] Performed By: #### 2 4344-4 ####[facility] LABIA [id number] [place] [address] [place] Oxyhemoglobin (BldV) [Mass fraction] 70 % Normal 60-85 [facility] Comment on above: Order Comment: Speci men Type: VENOUS BLOOD SPECIMENOrdering Facility: [facility] Address: [address] [place] [address] Performed By: #### 2 4344-4 ####[facility] LABIA [id number] [place] [address] [place] pH (BldV) 7.39 [pH] Normal 7.32-7.42 [facility] Comment on above: Order Comment: Speci men Type: VENOUS BLOOD SPECIMENOrdering Facility: [facility] Address: [address] [place] [address] Performed By: #### 2 4344-4 ####[facility] LABIA [id number] [place] [address] [place] Sodium [Moles/Vol] 139 mmol/L Normal 136-144 [facility] Comment on above: Order Comment: Speci men Type: VENOUS BLOOD SPECIMENOrdering Facility: [facility] Address: [address] [place] [address] Performed By: #### 2 4344-4 ####[facility] LABIA [id number] [place] [address] [place] Base excess Calc (BldV) [Moles/Vol] 4 mmol/L High 0-2 [facility] Comment on above: Order Comment: Speci men Type: VENOUS BLOOD SPECIMENOrdering Facility: [facility] Address: [address] [place] [address] Performed By: #### 2 4344-4 ####[facility] LABIA [id number] [place] [address] [place] Calcium.ionized (Bld) [Mass/Vol] 1.19 mmol/L Normal 1.08-1.30 [facility] Comment on above: Order Comment: Speci men Type: VENOUS BLOOD SPECIMENOrdering Facility: [facility] Address: [address] [place] [address] Performed By: #### 2 4344-4 ####[facility] LABIA [id number] [place] [address] [place] Calcium.ionized adjusted to pH 7.4 (BldA) [Moles/Vol] 1.18 mmol/L Normal 1.08-1.30 [facility] Comment on above: Order Comment: Speci men Type: VENOUS BLOOD SPECIMENOrdering Facility: [facility] Address: [address] [place] [address] Performed By: #### 2 4344-4 ####[facility] LABIA [id number] [place] [address] [place] Carboxyhemoglobin (BldV) [Mass fraction] 1.4 % Normal 0.0-2.0 [facility] Comment on above: Order Comment: Speci men Type: VENOUS BLOOD SPECIMENOrdering Facility: [facility] Address: [address] [place] [address] Result Comment: Carb oxyhemoglobin Reference Range for Smokers: 2.0-8.0% Performed By: #### 2 4344-4 ####[facility] LABIA [id number] [place] [address] [place] CO2 (BldV) [Partial pressure] 53 mm[Hg] Normal 42-55 [facility] Comment on above: Order Comment: Speci men Type: VENOUS BLOOD SPECIMENOrdering Facility: [facility] Address: [address] [place] [address] Performed By: #### 2 4344-4 ####[facility] LABCLIA [id number] [place] [address] [place] Glucose [Mass/Vol] 125 mg/dL High 60-105 [facility] Comment on above: Order Comment: Speci men Type: VENOUS BLOOD SPECIMENOrdering Facility: [facility] Address: [address] [place] [address] Performed By: #### 2 4344-4 ####[facility] LABCLIA [id number] [place] [address] [place] HCO3 (Bld) [Moles/Vol] 30 mmol/L High 24-28 [facility] Comment on above: Order Comment: Speci men Type: VENOUS BLOOD SPECIMENOrdering Facility: [facility] Address: [address] [place] [address] Performed By: #### 2 4344-4 ####[facility] LABCLIA [id number] [place] [address] [place] Hematocrit (Bld) [Volume fraction] 31.9 % Low 39.0-51.0 [facility] Comment on above: Order Comment: Speci men Type: VENOUS BLOOD SPECIMENOrdering Facility: [facility] Address: [address] [place] [address] Performed By: #### 2 4344-4 ####[facility] LABIA [id number] [place] [address] [place] Hemoglobin (Bld) [Mass/Vol] 10.3 g/dL Low 13.0-17.0 [facility] Comment on above: Order Comment: Speci men Type: VENOUS BLOOD SPECIMENOrdering Facility: [facility] Address: [address] [place] [address] Performed By: #### 2 4344-4 ####[facility] LABCLIA [id number] [place] [address] [place] Methemoglobin (Bld) [Mass fraction] 0.8 % Normal 0.0-1.5 [facility] Comment on above: Order Comment: Speci men Type: VENOUS BLOOD SPECIMENOrdering Facility: [facility] Address: [address] [place] [address] Performed By: #### 2 4344-4 ####[facility] LABCLIA [id number] [place] [address] [place] Oxygen (BldV) [Partial pressure] 43 mm[Hg] Normal 35-45 [facility] Comment on above: Order Comment: Speci men Type: VENOUS BLOOD SPECIMENOrdering Facility: [facility] Address: [address] [place] [address] Performed By: #### 2 4344-4 ####[facility] LABCLIA [id number] [place] [address] [place] Oxygen saturation in Venous blood 74 % Normal 60-85 [facility] Comment on above: Order Comment: Speci men Type: VENOUS BLOOD SPECIMENOrdering Facility: [facility] Address: [address] [place] [address] Performed By: #### 2 4344-4 ####[facility] LABIA [id number] [place] [address] [place] Oxyhemoglobin (BldV) [Mass fraction] 73 % Normal 60-85 [facility] Comment on above: Order Comment: Speci men Type: VENOUS BLOOD SPECIMENOrdering Facility: [facility] Address: [address] [place] [address] Performed By: #### 2 4344-4 ####[facility] LABIA [id number] [place] [address] [place] pH (BldV) 7.37 [pH] Normal 7.32-7.42 [facility] Comment on above: Order Comment: Speci men Type: VENOUS BLOOD SPECIMENOrdering Facility: [facility] Address: [address] [place], [place] [address] Performed By: #### 2 4344-4 ####[facility] LABIA [id number] [place] [id number] [place] Potassium [Moles/Vol] 4.4 mmol/L Normal 3.5-5.0 [facility] Comment on above: Order Comment: Speci men Type: VENOUS BLOOD SPECIMENOrdering Facility: [facility] Address: [address] [place] [address] Performed By: #### 2 4344-4 ####[facility] LABCLIA [id number] [place] [address] [place] Base excess Calc (BldV) [Moles/Vol] 4 mmol/L High 0-2 [facility] Comment on above: Order Comment: Speci men Type: VENOUS BLOOD SPECIMENOrdering Facility: [facility] Address: [address] [place] [address] Performed By: #### 2 4344-4 ####[facility] LABCLIA [id number] [place] [address] [place] Body temperature 98.6 [degF] Normal [facility] Comment on above: Order Comment: Speci men Type: VENOUS BLOOD SPECIMENOrdering Facility: [facility] Address: [address] [place] [address] Performed By: #### 2 4344-4 ####[facility] LABIA [id number] [place] [address] [place] Calcium.ionized (Bld) [Mass/Vol] 1.20 mmol/L Normal 1.08-1.30 [facility] Comment on above: Order Comment: Speci men Type: VENOUS BLOOD SPECIMENOrdering Facility: [facility] Address: [address] [place] [address] Performed By: #### 2 4344-4 ####[facility] LABIA [id number] [place] [address] [place] Calcium.ionized adjusted to pH 7.4 (BldA) [Moles/Vol] 1.18 mmol/L Normal 1.08-1.30 [facility] Comment on above: Order Comment: Speci men Type: VENOUS BLOOD SPECIMENOrdering Facility: [facility] Address: [address] [place] [address] Performed By: #### 2 4344-4 ####[facility] LABIA [id number] [place] [address] [place] Carboxyhemoglobin (BldV) [Mass fraction] 1.7 % Normal 0.0-2.0 [facility] Comment on above: Order Comment: Speci men Type: VENOUS BLOOD SPECIMENOrdering Facility: [facility] Address: [address] [place] [address] Result Comment: Carb oxyhemoglobin Reference Range for Smokers: 2.0-8.0% Performed By: #### 2 4344-4 ####[facility] [id number] [place] [address] [place] CO2 (BldV) [Partial pressure] 50 mm[Hg] Normal 42-55 [facility] Comment on above: Order Comment: Speci men Type: VENOUS BLOOD SPECIMENOrdering Facility: [facility] Address: [address] [place] [address] Performed By: #### 2 4344-4 ####[facility] LABIA [id number] [place] [address] [place] Glucose [Mass/Vol] 126 mg/dL High 60-105 [facility] Comment on above: Order Comment: Speci men Type: VENOUS BLOOD SPECIMENOrdering Facility: [facility] Address: [address] [place] [address] Performed By: #### 2 4344-4 ####[facility] [id number] [place] [address] [place] HCO3 (Bld) [Moles/Vol] 29 mmol/L High 24-28 [facility] Comment on above: Order Comment: Speci men Type: VENOUS BLOOD SPECIMENOrdering Facility: [facility] Address: [address] [place] [address] Performed By: #### 2 4344-4 ####[facility] LABCLIA [id number] [place] [address] [place] Hematocrit (Bld) [Volume fraction] 31.8 % Low 39.0-51.0 [facility] Comment on above: Order Comment: Speci men Type: VENOUS BLOOD SPECIMENOrdering Facility: [facility] Address: [address] [place] [address] Performed By: #### 2 4344-4 ####[facility] LABIA [id number] [place] [address] [place] Hemoglobin (Bld) [Mass/Vol] 10.3 g/dL Low 13.0-17.0 [facility] Comment on above: Order Comment: Speci men Type: VENOUS BLOOD SPECIMENOrdering Facility: [facility] Address: [address] [place] [address] Performed By: #### 2 4344-4 ####[facility] LABIA [id number] [place] [address] [place] Lactate [Moles/Vol] 1.2 mmol/L Normal 0.5-2.2 [facility] Comment on above: Order Comment: Speci men Type: VENOUS BLOOD SPECIMENOrdering Facility: [facility] Address: [address] [place] [address] Performed By: #### 2 4344-4 ####[facility] LABIA [id number] [place] [address] [place] LITERS 3 Liters/min Normal [facility] Comment on above: Order Comment: Speci men Type: VENOUS BLOOD SPECIMENOrdering Facility: [facility] Address: [address] [place] [address] Performed By: #### 2 4344-4 ####[facility] LABIA [id number] [place] [address] [place] Methemoglobin (Bld) [Mass fraction] 0.9 % Normal 0.0-1.5 [facility] Comment on above: Order Comment: Speci men Type: VENOUS BLOOD SPECIMENOrdering Facility: [facility] Address: [address] [place] [address] Performed By: #### 2 4344-4 ####[facility] LABCLIA [id number] [address] [address] [place] O2 THERAPY NC = Nasal Cannula Normal [facility] Comment on above: Order Comment: Speci men Type: VENOUS BLOOD SPECIMENOrdering Facility: [facility] Address: [address] [place], [place] [address] Performed By: #### 2 4344-4 ####[facility] LABCLIA [id number] [address] [address] [place] Oxygen (BldV) [Partial pressure] 47 mm[Hg] High 35-45 [facility] Comment on above: Order Comment: Speci men Type: VENOUS BLOOD SPECIMENOrdering Facility: [facility] Address: [address] [place] [address] Performed By: #### 2 4344-4 ####[facility] LABCLIA [id number] [address] [address] [place] Oxygen saturation in Venous blood 81 % Normal 60-85 [facility] Comment on above: Order Comment: Speci men Type: VENOUS BLOOD SPECIMENOrdering Facility: [facility] Address: [address] [place] [address] Performed By: #### 2 4344-4 ####[facility] LABCLIA [id number] [address] [address] [place] Oxyhemoglobin (BldV) [Mass fraction] 79 % Normal 60-85 [facility] Comment on above: Order Comment: Speci men Type: VENOUS BLOOD SPECIMENOrdering Facility: [facility] Address: [address] [place] [address] Performed By: #### 2 4344-4 ####[facility] LABCLIA [id number] [place] [address] [place] pH (BldV) 7.38 [pH] Normal 7.32-7.42 [facility] Comment on above: Order Comment: Speci men Type: VENOUS BLOOD SPECIMENOrdering Facility: [facility] Address: [address] [place] [address] Performed By: #### 2 4344-4 ####[facility] [id number] [place] [address] [place] Sodium [Moles/Vol] 139 mmol/L Normal 136-144 [facility] Comment on above: Order Comment: Speci men Type: VENOUS BLOOD SPECIMENOrdering Facility: [facility] Address: [address] [place] [address] Performed By: #### 2 4344-4 ####[facility] [id number] [place] [address] [place] Base excess Calc (BldV) [Moles/Vol] 3 mmol/L High 0-2 [facility] Comment on above: Order Comment: Speci men Type: VENOUS BLOOD SPECIMENOrdering Facility: [facility] Address: [address] [place] [address] Performed By: #### 2 4344-4 ####[facility] [id number] [place] [address] [place] Calcium.ionized (Bld) [Mass/Vol] 1.17 mmol/L Normal 1.08-1.30 [facility] Comment on above: Order Comment: Speci men Type: VENOUS BLOOD SPECIMENOrdering Facility: [facility] Address: [address] [place] [address] Performed By: #### 2 4344-4 ####[facility] [id number] [place] [address] [place] Calcium.ionized adjusted to pH 7.4 (BldA) [Moles/Vol] 1.16 mmol/L Normal 1.08-1.30 [facility] Comment on above: Order Comment: Speci men Type: VENOUS BLOOD SPECIMENOrdering Facility: [facility] Address: [address] [place] [address] Performed By: #### 2 4344-4 ####[facility] LABCLIA [id number] [place] [address] [place] Carboxyhemoglobin (BldV) [Mass fraction] 1.2 % Normal 0.0-2.0 [facility] Comment on above: Order Comment: Speci men Type: VENOUS BLOOD SPECIMENOrdering Facility: [facility] Address: [address] [place] [address] Result Comment: Carb oxyhemoglobin Reference Range for Smokers: 2.0-8.0% Performed By: #### 2 4344-4 ####[facility] LABCLIA [id number] [place] [address] [place] CO2 (BldV) [Partial pressure] 49 mm[Hg] Normal 42-55 [facility] Comment on above: Order Comment: Speci men Type: VENOUS BLOOD SPECIMENOrdering Facility: [facility] Address: [address] [place] [address] Performed By: #### 2 4344-4 ####[facility] LABCLIA [id number] [place] [address] [place] Glucose [Mass/Vol] 132 mg/dL High 60-105 [facility] Comment on above: Order Comment: Speci men Type: VENOUS BLOOD SPECIMENOrdering Facility: [facility] Address: [address] [place] [address] Performed By: #### 2 4344-4 ####[facility] LABCLIA [id number] [place] [address] [place] Hematocrit (Bld) [Volume fraction] 32.4 % Low 39.0-51.0 [facility] Comment on above: Order Comment: Speci men Type: VENOUS BLOOD SPECIMENOrdering Facility: [facility] Address: [address] [place] [id number] Performed By: #### 2 4344-4 ####[facility] LABCLIA [id number] [place] [address] [place] Hemoglobin (Bld) [Mass/Vol] 10.5 g/dL Low 13.0-17.0 [facility] Comment on above: Order Comment: Speci men Type: VENOUS BLOOD SPECIMENOrdering Facility: [facility] Address: [address] [place], [place] [address] Performed By: #### 2 4344-4 ####[facility] LABCLIA [id number] [place] [address] [place] Methemoglobin (Bld) [Mass fraction] 0.6 % Normal 0.0-1.5 [facility] Comment on above: Order Comment: Speci men Type: VENOUS BLOOD SPECIMENOrdering Facility: [facility] Address: [address] [place] [address] Performed By: #### 2 4344-4 ####[facility] LABCLIA [id number] [place] [address] [place] Oxygen (BldV) [Partial pressure] 44 mm[Hg] Normal 35-45 [facility] Comment on above: Order Comment: Speci men Type: VENOUS BLOOD SPECIMENOrdering Facility: [facility] Address: [address] [place], [place] [address] Performed By: #### 2 4344-4 ####[facility] LABCLIA [id number] [place] [id number] [place] Oxygen saturation in Venous blood 78 % Normal 60-85 [facility] Comment on above: Order Comment: Speci men Type: VENOUS BLOOD SPECIMENOrdering Facility: [facility] Address: [address] [place], [place] [address] Performed By: #### 2 4344-4 ####[facility] LABCLIA [id number] [place] [address] [place] Oxyhemoglobin (BldV) [Mass fraction] 77 % Normal 60-85 [facility] Comment on above: Order Comment: Speci men Type: VENOUS BLOOD SPECIMENOrdering Facility: [facility] Address: [address] [place] [address] Performed By: #### 2 4344-4 ####[facility] LABIA [id number] [place] [address] [place] pH (BldV) 7.38 [pH] Normal 7.32-7.42 [facility] Comment on above: Order Comment: Speci men Type: VENOUS BLOOD SPECIMENOrdering Facility: [facility] Address: [address] [place] [address] Performed By: #### 2 4344-4 ####[facility] LABIA [id number] [place] [address] [place] Base excess Calc (BldV) [Moles/Vol] 4 mmol/L High 0-2 [facility] Comment on above: Order Comment: Speci men Type: VENOUS BLOOD SPECIMENOrdering Facility: [facility] Address: [address] [place] [address] Performed By: #### 2 4344-4 ####[facility] LABIA [id number] [place] [address] [place] Calcium.ionized (Bld) [Mass/Vol] 1.19 mmol/L Normal 1.08-1.30 [facility] Comment on above: Order Comment: Speci men Type: VENOUS BLOOD SPECIMENOrdering Facility: [facility] Address: [address] [place] [address] Performed By: #### 2 4344-4 ####[facility] LABIA [id number] [place] [address] [place] Calcium.ionized adjusted to pH 7.4 (BldA) [Moles/Vol] 1.19 mmol/L Normal 1.08-1.30 [facility] Comment on above: Order Comment: Speci men Type: VENOUS BLOOD SPECIMENOrdering Facility: [facility] Address: [address] [place] [address] Performed By: #### 2 4344-4 ####[facility] LABCLIA [id number] [place] [address] [place] Carboxyhemoglobin (BldV) [Mass fraction] 1.3 % Normal 0.0-2.0 [facility] Comment on above: Order Comment: Speci men Type: VENOUS BLOOD SPECIMENOrdering Facility: [facility] Address: [address] [place] [address] Result Comment: Carb oxyhemoglobin Reference Range for Smokers: 2.0-8.0% Performed By: #### 2 4344-4 ####[facility] LABCLIA [id number] [place] [address] [place] CO2 (BldV) [Partial pressure] 47 mm[Hg] Normal 42-55 [facility] Comment on above: Order Comment: Speci men Type: VENOUS BLOOD SPECIMENOrdering Facility: [facility] Address: [address] [place] [address] Performed By: #### 2 4344-4 ####[facility] LABCLIA [id number] [place] [address] [place] Glucose [Mass/Vol] 127 mg/dL High 60-105 [facility] Comment on above: Order Comment: Speci men Type: VENOUS BLOOD SPECIMENOrdering Facility: [facility] Address: [address] [place] [address] Performed By: #### 2 4344-4 ####[facility] LABCLIA [id number] [place] [address] [place] HCO3 (Bld) [Moles/Vol] 29 mmol/L High 24-28 [facility] Comment on above: Order Comment: Speci men Type: VENOUS BLOOD SPECIMENOrdering Facility: [facility] Address: [address] [place] [address] Performed By: #### 2 4344-4 ####[facility] LABCLIA [id number] [place] [address] [place] Hematocrit (Bld) [Volume fraction] 32.1 % Low 39.0-51.0 [facility] Comment on above: Order Comment: Speci men Type: VENOUS BLOOD SPECIMENOrdering Facility: [facility] Address: [address] [place] [address] Performed By: #### 2 4344-4 ####[facility] LABCLIA [id number] [place] [address] [place] Hemoglobin (Bld) [Mass/Vol] 10.4 g/dL Low 13.0-17.0 [facility] Comment on above: Order Comment: Speci men Type: VENOUS BLOOD SPECIMENOrdering Facility: [facility] Address: [address] [place] [address] Performed By: #### 2 4344-4 ####[facility] LABCLIA [id number] [place] [address] [place] Methemoglobin (Bld) [Mass fraction] 0.8 % Normal 0.0-1.5 [facility] Comment on above: Order Comment: Speci men Type: VENOUS BLOOD SPECIMENOrdering Facility: [facility] Address: [address] [place] [address] Performed By: #### 2 4344-4 ####[facility] LABCLIA [id number] [place] [id number] [place] Oxygen (BldV) [Partial pressure] 41 mm[Hg] Normal 35-45 [facility] Comment on above: Order Comment: Speci men Type: VENOUS BLOOD SPECIMENOrdering Facility: [facility] Address: [address] [place] [address] Performed By: #### 2 4344-4 ####[facility] LABCLIA [id number] [place] [address] [place] Oxygen saturation in Venous blood 73 % Normal 60-85 [facility] Comment on above: Order Comment: Speci men Type: VENOUS BLOOD SPECIMENOrdering Facility: [facility] Address: [address] [place] [address] Performed By: #### 2 4344-4 ####[facility] LABCLIA [id number] [place] [address] [place] Oxyhemoglobin (BldV) [Mass fraction] 71 % Normal 60-85 [facility] Comment on above: Order Comment: Speci men Type: VENOUS BLOOD SPECIMENOrdering Facility: [facility] Address: [address] [place] [address] Performed By: #### 2 4344-4 ####[facility] LABIA [id number] [place] [address] [place] pH (BldV) 7.41 [pH] Normal 7.32-7.42 [facility] Comment on above: Order Comment: Speci men Type: VENOUS BLOOD SPECIMENOrdering Facility: [facility] Address: [address] [place] [address] Performed By: #### 2 4344-4 ####[facility] LABIA [id number] [place] [address] [place] Base excess Calc (BldV) [Moles/Vol] 5 mmol/L High 0-2 [facility] Comment on above: Order Comment: Speci men Type: VENOUS BLOOD SPECIMENOrdering Facility: [facility] Address: [address] [place] [address] Performed By: #### 2 4344-4 ####[facility] LABCLIA [id number] [place] [address] [place] Calcium.ionized adjusted to pH 7.4 (BldA) [Moles/Vol] 1.19 mmol/L Normal 1.08-1.30 [facility] Comment on above: Order Comment: Speci men Type: VENOUS BLOOD SPECIMENOrdering Facility: [facility] Address: [address] [place] [address] Performed By: #### 2 4344-4 ####[facility] LABCLIA [id number] [place] [address] [place] Carboxyhemoglobin (BldV) [Mass fraction] 1.4 % Normal 0.0-2.0 [facility] Comment on above: Order Comment: Speci men Type: VENOUS BLOOD SPECIMENOrdering Facility: [facility] Address: [address] [place] [address] Result Comment: Carb oxyhemoglobin Reference Range for Smokers: 2.0-8.0% Performed By: #### 2 4344-4 ####[facility] LABCLIA [id number] [place] [address] [place] CO2 (BldV) [Partial pressure] 45 mm[Hg] Normal 42-55 [facility] Comment on above: Order Comment: Speci men Type: VENOUS BLOOD SPECIMENOrdering Facility: [facility] Address: [address] [place] [address] Performed By: #### 2 4344-4 ####[facility] LABCLIA [id number] [place] [address] [place] Glucose [Mass/Vol] 99 mg/dL Normal 60-105 [facility] Comment on above: Order Comment: Speci men Type: VENOUS BLOOD SPECIMENOrdering Facility: [facility] Address: [address] [place] [address] Performed By: #### 2 4344-4 ####[facility] LABCLIA [id number] [place] [address] [place] HCO3 (Bld) [Moles/Vol] 29 mmol/L High 24-28 [facility] Comment on above: Order Comment: Speci men Type: VENOUS BLOOD SPECIMENOrdering Facility: [facility] Address: [address] [place] [address] Performed By: #### 2 4344-4 ####[facility] LABCLIA [id number] [place] [address] [place] Hematocrit (Bld) [Volume fraction] 32.5 % Low 39.0-51.0 [facility] Comment on above: Order Comment: Speci men Type: VENOUS BLOOD SPECIMENOrdering Facility: [facility] Address: [address] [place] [address] Performed By: #### 2 4344-4 ####[facility] LABIA [id number] [place] [address] [place] Hemoglobin (Bld) [Mass/Vol] 10.5 g/dL Low 13.0-17.0 [facility] Comment on above: Order Comment: Speci men Type: VENOUS BLOOD SPECIMENOrdering Facility: [facility] Address: [address] [place] [address] Performed By: #### 2 4344-4 ####[facility] LABIA [id number] [place] [address] [place] Lactate [Moles/Vol] 1.1 mmol/L Normal 0.5-2.2 [facility] Comment on above: Order Comment: Speci men Type: VENOUS BLOOD SPECIMENOrdering Facility: [facility] Address: [address] [place] [address] Performed By: #### 2 4344-4 ####[facility] LABCLIA [id number] [place] [address] [place] Oxygen (BldV) [Partial pressure] 45 mm[Hg] Normal 35-45 [facility] Comment on above: Order Comment: Speci men Type: VENOUS BLOOD SPECIMENOrdering Facility: [facility] Address: [address] [place] [address] Performed By: #### 2 4344-4 ####[facility] LABCLIA [id number] [address] [address] [place] Oxygen saturation in Venous blood 79 % Normal 60-85 [facility] Comment on above: Order Comment: Speci men Type: VENOUS BLOOD SPECIMENOrdering Facility: [facility] Address: [address] [place], [place] [address] Performed By: #### 2 4344-4 ####[facility] LABCLIA [id number] [address] [address] [place] Oxyhemoglobin (BldV) [Mass fraction] 78 % Normal 60-85 [facility] Comment on above: Order Comment: Speci men Type: VENOUS BLOOD SPECIMENOrdering Facility: [facility] Address: [address] [place] [address] Performed By: #### 2 4344-4 ####[facility] LABCLIA [id number] [place] [address] [place] pH (BldV) 7.42 [pH] Normal 7.32-7.42 [facility] Comment on above: Order Comment: Speci men Type: VENOUS BLOOD SPECIMENOrdering Facility: [facility] Address: [address] [place], [place] [address] Performed By: #### 2 4344-4 ####[facility] LABCLIA [id number] [place] [id number] [place] Potassium [Moles/Vol] 4.0 mmol/L Normal 3.5-5.0 [facility] Comment on above: Order Comment: Speci men Type: VENOUS BLOOD SPECIMENOrdering Facility: [facility] Address: [address] [place] [address] Performed By: #### 2 4344-4 ####[facility] LABCLIA [id number] [place] [id number] [place] Sodium [Moles/Vol] 138 mmol/L Normal 136-144 [facility] Comment on above: Order Comment: Speci men Type: VENOUS BLOOD SPECIMENOrdering Facility: [facility] Address: [address] [place] [address] Performed By: #### 2 4344-4 ####[facility] [id number] [place] [address] [place] Base excess Calc (BldV) [Moles/Vol] 4 mmol/L High 0-2 [facility] Comment on above: Order Comment: Speci men Type: VENOUS BLOOD SPECIMENOrdering Facility: [facility] Address: [address] [place] [address] Performed By: #### 2 4344-4 ####[facility] [id number] [place] [address] [place] Calcium.ionized adjusted to pH 7.4 (BldA) [Moles/Vol] 1.19 mmol/L Normal 1.08-1.30 [facility] Comment on above: Order Comment: Speci men Type: VENOUS BLOOD SPECIMENOrdering Facility: [facility] Address: [address] [place] [address] Performed By: #### 2 4344-4 ####[facility] [id number] [place] [address] [place] Carboxyhemoglobin (BldV) [Mass fraction] 1.5 % Normal 0.0-2.0 [facility] Comment on above: Order Comment: Speci men Type: VENOUS BLOOD SPECIMENOrdering Facility: [facility] Address: [address] [place] [address] Result Comment: Carb oxyhemoglobin Reference Range for Smokers: 2.0-8.0% Performed By: #### 2 4344-4 ####[facility] [id number] [place] [address] [place] CO2 (BldV) [Partial pressure] 48 mm[Hg] Normal 42-55 [facility] Comment on above: Order Comment: Speci men Type: VENOUS BLOOD SPECIMENOrdering Facility: [facility] Address: [address] [place] [address] Performed By: #### 2 4344-4 ####[facility] LABCLIA [id number] [place] [address] [place] Glucose [Mass/Vol] 117 mg/dL High 60-105 [facility] Comment on above: Order Comment: Speci men Type: VENOUS BLOOD SPECIMENOrdering Facility: [facility] Address: [address] [place] [address] Performed By: #### 2 4344-4 ####[facility] LABCLIA [id number] [place] [address] [place] HCO3 (Bld) [Moles/Vol] 29 mmol/L High 24-28 [facility] Comment on above: Order Comment: Speci men Type: VENOUS BLOOD SPECIMENOrdering Facility: [facility] Address: [address] [place] [address] Performed By: #### 2 4344-4 ####[facility] LABCLIA [id number] [place] [address] [place] Hematocrit (Bld) [Volume fraction] 31.7 % Low 39.0-51.0 [facility] Comment on above: Order Comment: Speci men Type: VENOUS BLOOD SPECIMENOrdering Facility: [facility] Address: [address] [place] [address] Performed By: #### 2 4344-4 ####[facility] LABCLIA [id number] [place] [address] [place] Hemoglobin (Bld) [Mass/Vol] 10.3 g/dL Low 13.0-17.0 [facility] Comment on above: Order Comment: Speci men Type: VENOUS BLOOD SPECIMENOrdering Facility: [facility] Address: [address] [place] [id number] Performed By: #### 2 4344-4 ####[facility] LABCLIA [id number] [place] [address] [place] Lactate [Moles/Vol] 1.1 mmol/L Normal 0.5-2.2 [facility] Comment on above: Order Comment: Speci men Type: VENOUS BLOOD SPECIMENOrdering Facility: [facility] Address: [address] [place] [address] Performed By: #### 2 4344-4 ####[facility] LABCLIA [id number] [place] [address] [place] Methemoglobin (Bld) [Mass fraction] 1.4 % Normal 0.0-1.5 [facility] Comment on above: Order Comment: Speci men Type: VENOUS BLOOD SPECIMENOrdering Facility: [facility] Address: [address] [place] [address] Performed By: #### 2 4344-4 ####[facility] LABCLIA [id number] [place] [address] [place] Oxygen (BldV) [Partial pressure] 44 mm[Hg] Normal 35-45 [facility] Comment on above: Order Comment: Speci men Type: VENOUS BLOOD SPECIMENOrdering Facility: [facility] Address: [address] [place] [address] Performed By: #### 2 4344-4 ####[facility] LABCLIA [id number] [place] [address] [place] Oxygen saturation in Venous blood 77 % Normal 60-85 [facility] Comment on above: Order Comment: Speci men Type: VENOUS BLOOD SPECIMENOrdering Facility: [facility] Address: [address] [place], [place] [address] Performed By: #### 2 4344-4 ####[facility] LABCLIA [id number] [place] [address] [place] Oxyhemoglobin (BldV) [Mass fraction] 75 % Normal 60-85 [facility] Comment on above: Order Comment: Speci men Type: VENOUS BLOOD SPECIMENOrdering Facility: [facility] Address: [address] [place] [address] Performed By: #### 2 4344-4 ####[facility] LABCLIA [id number] [place] [address] [place] pH (BldV) 7.39 [pH] Normal 7.32-7.42 [facility] Comment on above: Order Comment: Speci men Type: VENOUS BLOOD SPECIMENOrdering Facility: [facility] Address: [address] [place] [address] Performed By: #### 2 4344-4 ####[facility] LABIA [id number] [place] [address] [place] Potassium [Moles/Vol] 4.2 mmol/L Normal 3.5-5.0 [facility] Comment on above: Order Comment: Speci men Type: VENOUS BLOOD SPECIMENOrdering Facility: [facility] Address: [address] [place] [address] Performed By: #### 2 4344-4 ####[facility] LABIA [id number] [place] [address] [place] Sodium [Moles/Vol] 137 mmol/L Normal 136-144 [facility] Comment on above: Order Comment: Speci men Type: VENOUS BLOOD SPECIMENOrdering Facility: [facility] Address: [address] [place] [address] Performed By: #### 2 4344-4 ####[facility] LABCLIA [id number] [place] [address] [place] Base excess Calc (BldV) [Moles/Vol] 3 mmol/L High 0-2 [facility] Comment on above: Order Comment: Speci men Type: VENOUS BLOOD SPECIMENOrdering Facility: [facility] Address: [address] [place] [address] Performed By: #### 2 4344-4 ####[facility] LABCLIA [id number] [place] [address] [place] Calcium.ionized (Bld) [Mass/Vol] 1.20 mmol/L Normal 1.08-1.30 [facility] Comment on above: Order Comment: Speci men Type: VENOUS BLOOD SPECIMENOrdering Facility: [facility] Address: [address] [place] [address] Performed By: #### 2 4344-4 ####[facility] LABIA [id number] [place] [address] [place] Carboxyhemoglobin (BldV) [Mass fraction] 1.1 % Normal 0.0-2.0 [facility] Comment on above: Order Comment: Speci men Type: VENOUS BLOOD SPECIMENOrdering Facility: [facility] Address: [address] [place] [address] Result Comment: Carb oxyhemoglobin Reference Range for Smokers: 2.0-8.0% Performed By: #### 2 4344-4 ####[facility] LABIA [id number] [place] [address] [place] CO2 (BldV) [Partial pressure] 47 mm[Hg] Normal 42-55 [facility] Comment on above: Order Comment: Speci men Type: VENOUS BLOOD SPECIMENOrdering Facility: [facility] Address: [address] [place] [address] Performed By: #### 2 4344-4 ####[facility] LABCLIA [id number] [place] [address] [place] Glucose [Mass/Vol] 111 mg/dL High 60-105 [facility] Comment on above: Order Comment: Speci men Type: VENOUS BLOOD SPECIMENOrdering Facility: [facility] Address: [address] [place] [address] Performed By: #### 2 4344-4 ####[facility] LABIA [id number] [place] [address] [place] HCO3 (Bld) [Moles/Vol] 28 mmol/L Normal 24-28 [facility] Comment on above: Order Comment: Speci men Type: VENOUS BLOOD SPECIMENOrdering Facility: [facility] Address: [address] [place] [address] Performed By: #### 2 4344-4 ####[facility] LABCLIA [id number] [place] [address] [place] Hematocrit (Bld) [Volume fraction] 31.4 % Low 39.0-51.0 [facility] Comment on above: Order Comment: Speci men Type: VENOUS BLOOD SPECIMENOrdering Facility: [facility] Address: [address] [place] [address] Performed By: #### 2 4344-4 ####[facility] LABIA [id number] [place] [address] [place] Hemoglobin (Bld) [Mass/Vol] 10.2 g/dL Low 13.0-17.0 [facility] Comment on above: Order Comment: Speci men Type: VENOUS BLOOD SPECIMENOrdering Facility: [facility] Address: [address] [place] [address] Performed By: #### 2 4344-4 ####[facility] LABIA [id number] [place] [address] [place] Methemoglobin (Bld) [Mass fraction] 0.6 % Normal 0.0-1.5 [facility] Comment on above: Order Comment: Speci men Type: VENOUS BLOOD SPECIMENOrdering Facility: [facility] Address: [address] [place] [address] Performed By: #### 2 4344-4 ####[facility] LABIA [id number] [place] [address] [place] Oxygen (BldV) [Partial pressure] 44 mm[Hg] Normal 35-45 [facility] Comment on above: Order Comment: Speci men Type: VENOUS BLOOD SPECIMENOrdering Facility: [facility] Address: [address] [place] [id number] Performed By: #### 2 4344-4 ####[facility] LABIA [id number] [place] [address] [place] Oxygen saturation in Venous blood 77 % Normal 60-85 [facility] Comment on above: Order Comment: Speci men Type: VENOUS BLOOD SPECIMENOrdering Facility: [facility] Address: [address] [place] [address] Performed By: #### 2 4344-4 ####[facility] LABIA [id number] [place] [address] [place] Oxyhemoglobin (BldV) [Mass fraction] 76 % Normal 60-85 [facility] Comment on above: Order Comment: Speci men Type: VENOUS BLOOD SPECIMENOrdering Facility: [facility] Address: [address] [place] [address] Performed By: #### 2 4344-4 ####[facility] LABIA [id number] [place] [address] [place] pH (BldV) 7.39 [pH] Normal 7.32-7.42 [facility] Comment on above: Order Comment: Speci men Type: VENOUS BLOOD SPECIMENOrdering Facility: [facility] Address: [address] [place] [address] Performed By: #### 2 4344-4 ####[facility] LABIA [id number] [place] [address] [place] Base excess Calc (BldV) [Moles/Vol] 2 mmol/L Normal 0-2 [facility] Comment on above: Order Comment: Speci men Type: VENOUS BLOOD SPECIMENOrdering Facility: [facility] Address: [address] [place] [address] Performed By: #### 2 4344-4 ####[facility] LABIA [id number] [place] [address] [place] Calcium.ionized (Bld) [Mass/Vol] 1.19 mmol/L Normal 1.08-1.30 [facility] Comment on above: Order Comment: Speci men Type: VENOUS BLOOD SPECIMENOrdering Facility: [facility] Address: [address] [place] [address] Performed By: #### 2 4344-4 ####[facility] LABIA [id number] [place] [address] [place] Calcium.ionized adjusted to pH 7.4 (BldA) [Moles/Vol] 1.18 mmol/L Normal 1.08-1.30 [facility] Comment on above: Order Comment: Speci men Type: VENOUS BLOOD SPECIMENOrdering Facility: [facility] Address: [address] [place] [address] Performed By: #### 2 4344-4 ####[facility] [id number] [place] [address] [place] Carboxyhemoglobin (BldV) [Mass fraction] 1.7 % Normal 0.0-2.0 [facility] Comment on above: Order Comment: Speci men Type: VENOUS BLOOD SPECIMENOrdering Facility: [facility] Address: [address] [place] [address] Result Comment: Carb oxyhemoglobin Reference Range for Smokers: 2.0-8.0% Performed By: #### 2 4344-4 ####[facility] [id number] [place] [address] [place] CO2 (BldV) [Partial pressure] 46 mm[Hg] Normal 42-55 [facility] Comment on above: Order Comment: Speci men Type: VENOUS BLOOD SPECIMENOrdering Facility: [facility] Address: [address] [place] [address] Performed By: #### 2 4344-4 ####[facility] [id number] [place] [address] [place] HCO3 (Bld) [Moles/Vol] 27 mmol/L Normal 24-28 [facility] Comment on above: Order Comment: Speci men Type: VENOUS BLOOD SPECIMENOrdering Facility: [facility] Address: [address] [place] [address] Performed By: #### 2 4344-4 ####[facility] [id number] [place] [address] [place] Hematocrit (Bld) [Volume fraction] 31.7 % Low 39.0-51.0 [facility] Comment on above: Order Comment: Speci men Type: VENOUS BLOOD SPECIMENOrdering Facility: [facility] Address: [address] [place] [address] Performed By: #### 2 4344-4 ####[facility] LABIA [id number] [place] [address] [place] Lactate [Moles/Vol] 1.9 mmol/L Normal 0.5-2.2 [facility] Comment on above: Order Comment: Speci men Type: VENOUS BLOOD SPECIMENOrdering Facility: [facility] Address: [address] [place] [address] Performed By: #### 2 4344-4 ####[facility] LABIA [id number] [place] [address] [place] Methemoglobin (Bld) [Mass fraction] 0.9 % Normal 0.0-1.5 [facility] Comment on above: Order Comment: Speci men Type: VENOUS BLOOD SPECIMENOrdering Facility: [facility] Address: [address] [place] [address] Performed By: #### 2 4344-4 ####[facility] LABIA [id number] [place] [address] [place] Oxygen (BldV) [Partial pressure] 47 mm[Hg] High 35-45 [facility] Comment on above: Order Comment: Speci men Type: VENOUS BLOOD SPECIMENOrdering Facility: [facility] Address: [address] [place] [address] Performed By: #### 2 4344-4 ####[facility] LABCLIA [id number] [address] [address] [place] Oxygen saturation in Venous blood 81 % Normal 60-85 [facility] Comment on above: Order Comment: Speci men Type: VENOUS BLOOD SPECIMENOrdering Facility: [facility] Address: [address] [place] [address] Performed By: #### 2 4344-4 ####[facility] LABCLIA [id number] [place] [address] [place] Oxyhemoglobin (BldV) [Mass fraction] 79 % Normal 60-85 [facility] Comment on above: Order Comment: Speci men Type: VENOUS BLOOD SPECIMENOrdering Facility: [facility] Address: [address] [place] [address] Performed By: #### 2 4344-4 ####[facility] LABIA [id number] [place] [address] [place] pH (BldV) 7.39 [pH] Normal 7.32-7.42 [facility] Comment on above: Order Comment: Speci men Type: VENOUS BLOOD SPECIMENOrdering Facility: [facility] Address: [address] [place] [address] Performed By: #### 2 4344-4 ####[facility] LABCLIA [id number] [place] [address] [place] Potassium [Moles/Vol] 4.1 mmol/L Normal 3.5-5.0 [facility] Comment on above: Order Comment: Speci men Type: VENOUS BLOOD SPECIMENOrdering Facility: [facility] Address: [address] [place] [address] Performed By: #### 2 4344-4 ####[facility] LABCLIA [id number] [place] [address] [place] XR CHEST 1V FRONTAL PORTon 1 XR CHEST 1V FRONTAL PORT Normal [facility] ARTERIAL BLOOD GASESon 01-23 Base excess Calc (Bld) [Moles/Vol] 2 mmol/L Normal 0-2 [facility] Comment on above: Order Comment: Speci men Type: ARTERIAL BLOOD SPECIMENOrdering Facility: [facility] Address: [address] [place] [address] Performed By: #### A LLBG ####[facility] LABCLIA [id number] [place] [address] [place] Calcium.ionized (Bld) [Mass/Vol] 1.20 mmol/L Normal 1.08-1.30 [facility] Comment on above: Order Comment: Speci men Type: ARTERIAL BLOOD SPECIMENOrdering Facility: [facility] Address: [address] [place] [address] Performed By: #### A LLBG ####[facility] LABCLIA [id number] [place] [address] [place] Calcium.ionized adjusted to pH 7.4 (BldA) [Moles/Vol] 1.20 mmol/L Normal 1.08-1.30 [facility] Comment on above: Order Comment: Speci men Type: ARTERIAL BLOOD SPECIMENOrdering Facility: [facility] Address: [address] [place] [address] Performed By: #### A LLBG ####[facility] LABCLIA [id number] [place] [address] [place] Carboxyhemoglobin (BldA) [Mass fraction] 0.9 % Normal 0.0-2.0 [facility] Comment on above: Order Comment: Speci men Type: ARTERIAL BLOOD SPECIMENOrdering Facility: [facility] Address: [address] [place] [address] Result Comment: Carb oxyhemoglobin Reference Range for Smokers: 2.0-8.0% Performed By: #### A LLBG ####[facility] LABCLIA [id number] [place] [address] [place] CO2 (Bld) [Partial pressure] 43 mm Hg Normal 36-46 [facility] Comment on above: Order Comment: Speci men Type: ARTERIAL BLOOD SPECIMENOrdering Facility: [facility] Address: [address] [place] [address] Performed By: #### A LLBG ####[facility] LABIA [id number] [place] [address] [place] Glucose [Mass/Vol] 134 mg/dL High 74-99 [facility] Comment on above: Order Comment: Speci men Type: ARTERIAL BLOOD SPECIMENOrdering Facility: [facility] Address: [address] [place] [address] Performed By: #### A LLBG ####[facility] LABIA [id number] [address] [place] Order Comment: Speci men Type: BLOOD SPECIMENOrdering Facility: [facility] Address: [address] [place] [address] Result Comment: The [place] [employer] (ADA) provides guidance for cutoff [...] Standards of Medical Care in Diabetes 2016, [place] [employer]. Diabetes Care. 2016.39(Suppl 1). Performed By: #### 2 4323-8, HSTNT ####[facility] LABIA [id number] [place] [address] [place] HCO3 (Bld) [Moles/Vol] 26 mmol/L Normal 22-26 [facility] Comment on above: Order Comment: Speci men Type: ARTERIAL BLOOD SPECIMENOrdering Facility: [facility] Address: [address] [place] [address] Performed By: #### A LLBG ####[facility] LABCLIA [id number] [place] [id number] [place] Lactate [Moles/Vol] 1.6 mmol/L Normal 0.5-2.2 [facility] Comment on above: Order Comment: Speci men Type: ARTERIAL BLOOD SPECIMENOrdering Facility: [facility] Address: [address] [place] [address] Performed By: #### A LLBG ####[facility] LABCLIA [id number] [place] [address] [place] Methemoglobin (Bld) [Mass fraction] 0.5 % Normal 0.0-1.5 [facility] Comment on above: Order Comment: Speci men Type: ARTERIAL BLOOD SPECIMENOrdering Facility: [facility] Address: [address] [place] [address] Performed By: #### A LLBG ####[facility] LABCLIA [id number] [place] [address] [place] Oxygen (Bld) [Partial pressure] 141 mm Hg High 85-95 [facility] Comment on above: Order Comment: Speci men Type: ARTERIAL BLOOD SPECIMENOrdering Facility: [facility] Address: [address] [place] [address] Performed By: #### A LLBG ####[facility] LABCLIA [id number] [place] [id number] [place] Oxyhemoglobin (BldA) [Mass fraction] 98 % Normal 95-98 [facility] Comment on above: Order Comment: Speci men Type: ARTERIAL BLOOD SPECIMENOrdering Facility: [facility] Address: [address] [place], [place] [address] Performed By: #### A LLBG ####[facility] LABCLIA [id number] [place] [address] [place] PEEP/CPAP 8 cmH2O Normal [facility] Comment on above: Order Comment: Speci men Type: ARTERIAL BLOOD SPECIMENOrdering Facility: [facility] Address: [address] [place] [address] Performed By: #### A LLBG ####[facility] LABCLIA [id number] [place] [address] [place] pH (Bld) 7.40 [pH] Normal 7.35-7.45 [facility] Comment on above: Order Comment: Speci men Type: ARTERIAL BLOOD SPECIMENOrdering Facility: [facility] Address: [address] [place] [address] Performed By: #### A LLBG ####[facility] LABCLIA [id number] [place] [address] [place] PO2 / FIO2 RATIO 470 mmHg Normal >300 [facility] Comment on above: Order Comment: Speci men Type: ARTERIAL BLOOD SPECIMENOrdering Facility: [facility] Address: [address] [place] [address] Performed By: #### A LLBG ####[facility] LABCLIA [id number] [place] [address] [place] Potassium [Moles/Vol] 4.3 mmol/L Normal 3.5-5.0 [facility] Comment on above: Order Comment: Speci men Type: ARTERIAL BLOOD SPECIMENOrdering Facility: [facility] Address: [address] [place] [address] Performed By: #### A LLBG ####[facility] LABCLIA [id number] [place] [address] [place] Sodium [Moles/Vol] 137 mmol/L Normal 136-144 [facility] Comment on above: Order Comment: Speci men Type: ARTERIAL BLOOD SPECIMENOrdering Facility: [facility] Address: [address] [place] [address] Performed By: #### A LLBG ####[facility] LABCLIA [id number] [place] [address] [place] Base excess Calc (Bld) [Moles/Vol] 3 mmol/L High 0-2 [facility] Comment on above: Order Comment: Speci men Type: ARTERIAL BLOOD SPECIMENOrdering Facility: [facility] Address: [address] [place] [address] Performed By: #### A LLBG ####[facility] LABCLIA [id number] [place] [address] [place] Body temperature 98.24 [degF] Normal [facility] Comment on above: Order Comment: Speci men Type: ARTERIAL BLOOD SPECIMENOrdering Facility: [facility] Address: [address] [place] [address] Performed By: #### A LLBG ####[facility] LABCLIA [id number] [place] [address] [place] Order Comment: Speci men Type: VENOUS BLOOD SPECIMENOrdering Facility: [facility] Address: [address] [place] [address] Performed By: #### 2 4344-4 ####[facility] LABIA [id number] [place] [address] [place] Calcium.ionized (Bld) [Mass/Vol] 1.18 mmol/L Normal 1.08-1.30 [facility] Comment on above: Order Comment: Speci men Type: ARTERIAL BLOOD SPECIMENOrdering Facility: [facility] Address: [address] [place] [address] Performed By: #### A LLBG ####[facility] LABCLIA [id number] [place] [address] [place] Calcium.ionized adjusted to pH 7.4 (BldA) [Moles/Vol] 1.21 mmol/L Normal 1.08-1.30 [facility] Comment on above: Order Comment: Speci men Type: ARTERIAL BLOOD SPECIMENOrdering Facility: [facility] Address: [address] [place] [address] Performed By: #### A LLBG ####[facility] LABCLIA [id number] [place] [address] [place] Carboxyhemoglobin (BldA) [Mass fraction] 1.6 % Normal 0.0-2.0 [facility] Comment on above: Order Comment: Speci men Type: ARTERIAL BLOOD SPECIMENOrdering Facility: [facility] Address: [address] [place] [address] Result Comment: Carb oxyhemoglobin Reference Range for Smokers: 2.0-8.0% Performed By: #### A LLBG ####[facility] LABCLIA [id number] [place] [address] [place] CO2 (Bld) [Partial pressure] 39 mm Hg Normal 36-46 [facility] Comment on above: Order Comment: Speci men Type: ARTERIAL BLOOD SPECIMENOrdering Facility: [facility] Address: [address] [place] [address] Performed By: #### A LLBG ####[facility] LABCLIA [id number] [place] [address] [place] CO2 adjusted to patient's actual temperature (Bld) [Partial pressure] 39 mmHg Normal 36-46 [facility] Comment on above: Order Comment: Speci men Type: ARTERIAL BLOOD SPECIMENOrdering Facility: [facility] Address: [address] [place] [address] Performed By: #### A LLBG ####[facility] LABCLIA [id number] [place] [address] [place] FIO2 30 % Normal [facility] Comment on above: Order Comment: Speci men Type: ARTERIAL BLOOD SPECIMENOrdering Facility: [facility] Address: [address] [place] [address] Performed By: #### A LLBG ####[facility] LABCLIA [id number] [place] [address] [place] Order Comment: Speci men Type: VENOUS BLOOD SPECIMENOrdering Facility: [facility] Address: [address] [place], [place] [address] Performed By: #### 2 4344-4 ####[facility] LABCLIA [id number] [place] [address] [place] Glucose [Mass/Vol] 137 mg/dL High 60-105 [facility] Comment on above: Order Comment: Speci men Type: ARTERIAL BLOOD SPECIMENOrdering Facility: [facility] Address: [address] [place] [address] Performed By: #### A LLBG ####[facility] LABCLIA [id number] [place] [address] [place] Order Comment: Speci men Type: VENOUS BLOOD SPECIMENOrdering Facility: [facility] Address: [address] [place] [address] Performed By: #### 2 4344-4 ####[facility] LABCLIA [id number] [place] [address] [place] HCO3 (Bld) [Moles/Vol] 27 mmol/L Normal 24-28 [facility] Comment on above: Order Comment: Speci men Type: ARTERIAL BLOOD SPECIMENOrdering Facility: [facility] Address: [address] [place] [address] Performed By: #### A LLBG ####[facility] LABCLIA [id number] [place] [address] [place] Order Comment: Speci men Type: VENOUS BLOOD SPECIMENOrdering Facility: [facility] Address: [address] [place], [place] [address] Performed By: #### 2 4344-4 ####[facility] LABCLIA [id number] [place] [address] [place] Hematocrit (Bld) [Volume fraction] 32.6 % Low 39.0-51.0 [facility] Comment on above: Order Comment: Speci men Type: ARTERIAL BLOOD SPECIMENOrdering Facility: [facility] Address: [address] [place] [address] Performed By: #### A LLBG ####[facility] LABCLIA [id number] [place] [address] [place] Order Comment: Speci men Type: VENOUS BLOOD SPECIMENOrdering Facility: [facility] Address: [address] [place] [address] Performed By: #### 2 4344-4 ####[facility] LABCLIA [id number] [place] [address] [place] Hemoglobin (Bld) [Mass/Vol] 10.5 g/dL Low 13.0-17.0 [facility] Comment on above: Order Comment: Speci men Type: ARTERIAL BLOOD SPECIMENOrdering Facility: [facility] Address: [address] [place] [address] Performed By: #### A LLBG ####[facility] LABCLIA [id number] [place] [address] [place] Lactate [Moles/Vol] 2.3 mmol/L High 0.5-2.2 [facility] Comment on above: Order Comment: Speci men Type: ARTERIAL BLOOD SPECIMENOrdering Facility: [facility] Address: [address] [place] [address] Performed By: #### A LLBG ####[facility] LABCLIA [id number] [place] [address] [place] Methemoglobin (Bld) [Mass fraction] 1.0 % Normal 0.0-1.5 [facility] Comment on above: Order Comment: Speci men Type: ARTERIAL BLOOD SPECIMENOrdering Facility: [facility] Address: [address] [place] [address] [place] [address] Performed By: #### A LLBG ####[facility] LABCLIA [id number] [address] [address] [place] O2 THERAPY VENT=Ventilator Normal [facility] Comment on above: Order Comment: Speci men Type: ARTERIAL BLOOD SPECIMENOrdering Facility: [facility] Address: [address] [place] [id number] Performed By: #### A LLBG ####[facility] LABCLIA [id number] [address] [address] [place] Order Comment: Speci men Type: VENOUS BLOOD SPECIMENOrdering Facility: [facility] Address: [address] [place] [id number] Performed By: #### 2 4344-4 ####[facility] LABCLIA [id number] [address] [address] [place] Oxygen (Bld) [Partial pressure] 142 mm Hg High 85-95 [facility] Comment on above: Order Comment: Speci men Type: ARTERIAL BLOOD SPECIMENOrdering Facility: [facility] Address: [address] [place] [address] Performed By: #### A LLBG ####[facility] LABCLIA [id number] [address] [address] [place] Oxygen adjusted to patient's actual temperature (Bld) [Partial pressure] 141 mmHg High 85-95 [facility] Comment on above: Order Comment: Speci men Type: ARTERIAL BLOOD SPECIMENOrdering Facility: [facility] Address: [address] [place] [address] Performed By: #### A LLBG ####[facility] LABCLIA [id number] [address] [address] [place] Oxyhemoglobin (BldA) [Mass fraction] 97 % Normal 95-98 [facility] Comment on above: Order Comment: Speci men Type: ARTERIAL BLOOD SPECIMENOrdering Facility: [facility] Address: [address] [place] [address] Performed By: #### A LLBG ####[facility] LABCLIA [id number] [place] [address] [place] PEEP/CPAP 10 cmH2O Normal [facility] Comment on above: Order Comment: Speci men Type: ARTERIAL BLOOD SPECIMENOrdering Facility: [facility] Address: [address] [place] [address] Performed By: #### A LLBG ####[facility] LABCLIA [id number] [place] [address] [place] pH (Bld) 7.46 [pH] High 7.35-7.45 [facility] Comment on above: Order Comment: Speci men Type: ARTERIAL BLOOD SPECIMENOrdering Facility: [facility] Address: [address] [place] [address] Performed By: #### A LLBG ####[facility] LABIA [id number] [place] [address] [place] pH adjusted to patient's actual temperature (Bld) 7.46 High 7.35-7.45 [facility] Comment on above: Order Comment: Speci men Type: ARTERIAL BLOOD SPECIMENOrdering Facility: [facility] Address: [address] [place] [address] Performed By: #### A LLBG ####[facility] LABCLIA [id number] [place] [address] [place] PO2 / FIO2 RATIO 473 mmHg Normal >300 [facility] Comment on above: Order Comment: Speci men Type: ARTERIAL BLOOD SPECIMENOrdering Facility: [facility] Address: [address] [place] [address] Performed By: #### A LLBG ####[facility] LABIA [id number] [place] [address] [place] Potassium [Moles/Vol] 4.1 mmol/L Normal 3.5-5.0 [facility] Comment on above: Order Comment: Speci men Type: ARTERIAL BLOOD SPECIMENOrdering Facility: [facility] Address: [address] [place] [address] Performed By: #### A LLBG ####[facility] LABCLIA [id number] [place] [address] [place] Sodium [Moles/Vol] 137 mmol/L Normal 136-144 [facility] Comment on above: Order Comment: Speci men Type: ARTERIAL BLOOD SPECIMENOrdering Facility: [facility] Address: [address] [place] [address] Performed By: #### A LLBG ####[facility] LABCLIA [id number] [place] [address] [place] Base excess Calc (Bld) [Moles/Vol] 3 mmol/L High 0-2 [facility] Comment on above: Order Comment: Speci men Type: ARTERIAL BLOOD SPECIMENOrdering Facility: [facility] Address: [address] [place] [address] Performed By: #### A LLBG ####[facility] LABCLIA [id number] [address] [place] Body temperature 98.06 [degF] Normal [facility] Comment on above: Order Comment: Speci men Type: ARTERIAL BLOOD SPECIMENOrdering Facility: [facility] Address: [address] [place] [address] Performed By: #### A LLBG ####[facility] LABCLIA [id number] [place] [address] [place] Order Comment: Speci men Type: VENOUS BLOOD SPECIMENOrdering Facility: [facility] Address: [address] [place] [address] Performed By: #### 2 4344-4 ####[facility] LABCLIA [id number] [address] [place] Calcium.ionized (Bld) [Mass/Vol] 1.19 mmol/L Normal 1.08-1.30 [facility] Comment on above: Order Comment: Speci men Type: ARTERIAL BLOOD SPECIMENOrdering Facility: [facility] Address: [address] [place] [address] Performed By: #### A LLBG ####[facility] LABCLIA [id number] [place] [address] [place] Calcium.ionized adjusted to pH 7.4 (BldA) [Moles/Vol] 1.23 mmol/L Normal 1.08-1.30 [facility] Comment on above: Order Comment: Speci men Type: ARTERIAL BLOOD SPECIMENOrdering Facility: [facility] Address: [address] [place] [address] Performed By: #### A LLBG ####[facility] LABCLIA [id number] [address] [place] Carboxyhemoglobin (BldA) [Mass fraction] 1.4 % Normal 0.0-2.0 [facility] Comment on above: Order Comment: Speci men Type: ARTERIAL BLOOD SPECIMENOrdering Facility: [facility] Address: [address] [place] [address] Result Comment: Carb oxyhemoglobin Reference Range for Smokers: 2.0-8.0% Performed By: #### A LLBG ####[facility] LABCLIA [id number] [place] [address] [place] CO2 (Bld) [Partial pressure] 36 mm Hg Normal 36-46 [facility] Comment on above: Order Comment: Speci men Type: ARTERIAL BLOOD SPECIMENOrdering Facility: [facility] Address: [address] [place] [address] Performed By: #### A LLBG ####[facility] LABCLIA [id number] [place] [address] [place] CO2 adjusted to patient's actual temperature (Bld) [Partial pressure] 36 mmHg Normal 36-46 [facility] Comment on above: Order Comment: Speci men Type: ARTERIAL BLOOD SPECIMENOrdering Facility: [facility] Address: [address] [place] [address] Performed By: #### A LLBG ####[facility] LABCLIA [id number] [place] [address] [place] FIO2 30 % Normal [facility] Comment on above: Order Comment: Speci men Type: ARTERIAL BLOOD SPECIMENOrdering Facility: [facility] Address: [address] [place] [address] Performed By: #### A LLBG ####[facility] LABCLIA [id number] [place] [address] [place] Order Comment: Speci men Type: VENOUS BLOOD SPECIMENOrdering Facility: [facility] Address: [address] [place] [address] Performed By: #### 2 4344-4 ####[facility] LABCLIA [id number] [place] [address] [place] Glucose [Mass/Vol] 124 mg/dL High 60-105 [facility] Comment on above: Order Comment: Speci men Type: ARTERIAL BLOOD SPECIMENOrdering Facility: [facility] Address: [address] [place] [address] Performed By: #### A LLBG ####[facility] LABCLIA [id number] [place] [address] [place] HCO3 (Bld) [Moles/Vol] 26 mmol/L Normal 22-26 [facility] Comment on above: Order Comment: Speci men Type: ARTERIAL BLOOD SPECIMENOrdering Facility: [facility] Address: [address] [place] [address] Performed By: #### A LLBG ####[facility] LABCLIA [id number] [place] [address] [place] Hematocrit (Bld) [Volume fraction] 32.4 % Low 39.0-51.0 [facility] Comment on above: Order Comment: Speci men Type: ARTERIAL BLOOD SPECIMENOrdering Facility: [facility] Address: [address] [place] [address] Performed By: #### A LLBG ####[facility] LABCLIA [id number] [place] [address] [place] Hemoglobin (Bld) [Mass/Vol] 10.5 g/dL Low 13.0-17.0 [facility] Comment on above: Order Comment: Speci men Type: ARTERIAL BLOOD SPECIMENOrdering Facility: [facility] Address: [address] [place] [address] Performed By: #### A LLBG ####[facility] LABCLIA [id number] [place] [address] [place] Lactate [Moles/Vol] 2.4 mmol/L High 0.5-2.2 [facility] Comment on above: Order Comment: Speci men Type: ARTERIAL BLOOD SPECIMENOrdering Facility: [facility] Address: [address] [place] [address] Performed By: #### A LLBG ####[facility] LABCLIA [id number] [place] [address] [place] Order Comment: Speci men Type: VENOUS BLOOD SPECIMENOrdering Facility: [facility] Address: [address] [place] [address] Performed By: #### 2 4344-4 ####[facility] LABCLIA [id number] [place] [address] [place] Methemoglobin (Bld) [Mass fraction] 0.6 % Normal 0.0-1.5 [facility] Comment on above: Order Comment: Speci men Type: ARTERIAL BLOOD SPECIMENOrdering Facility: [facility] Address: [address] [place] [address] Performed By: #### A LLBG ####[facility] LABCLIA [id number] [address] [address] [place] O2 THERAPY VENT=Ventilator Normal [facility] Comment on above: Order Comment: Speci men Type: ARTERIAL BLOOD SPECIMENOrdering Facility: [facility] Address: [address] [place] [address] Performed By: #### A LLBG ####[facility] LABCLIA [id number] [address] [address] [place] Order Comment: Speci men Type: VENOUS BLOOD SPECIMENOrdering Facility: [facility] Address: [address] [place] [id number] Performed By: #### 2 4344-4 ####[facility] LABCLIA [id number] [address] [address] [place] Oxygen (Bld) [Partial pressure] 117 mm Hg High 85-95 [facility] Comment on above: Order Comment: Speci men Type: ARTERIAL BLOOD SPECIMENOrdering Facility: [facility] Address: [address] [place] [address] Performed By: #### A LLBG ####[facility] LABCLIA [id number] [address] [address] [place] Oxygen adjusted to patient's actual temperature (Bld) [Partial pressure] 115 mmHg High 85-95 [facility] Comment on above: Order Comment: Speci men Type: ARTERIAL BLOOD SPECIMENOrdering Facility: [facility] Address: [address] [place] [address] Performed By: #### A LLBG ####[facility] LABCLIA [id number] [address] [address] [place] Oxyhemoglobin (BldA) [Mass fraction] 97 % Normal 95-98 [facility] Comment on above: Order Comment: Speci men Type: ARTERIAL BLOOD SPECIMENOrdering Facility: [facility] Address: [address] [place] [address] Performed By: #### A LLBG ####[facility] LABCLIA [id number] [place] [address] [place] PEEP/CPAP 10 cmH2O Normal [facility] Comment on above: Order Comment: Speci men Type: ARTERIAL BLOOD SPECIMENOrdering Facility: [facility] Address: [address] [place] [address] Performed By: #### A LLBG ####[facility] LABCLIA [id number] [place] [address] [place] Order Comment: Speci men Type: VENOUS BLOOD SPECIMENOrdering Facility: [facility] Address: [address] [place] [address] Performed By: #### 2 4344-4 ####[facility] LABCLIA [id number] [place] [address] [place] pH (Bld) 7.47 [pH] High 7.35-7.45 [facility] Comment on above: Order Comment: Speci men Type: ARTERIAL BLOOD SPECIMENOrdering Facility: [facility] Address: [address] [place] [address] Performed By: #### A LLBG ####[facility] LABCLIA [id number] [place] [address] [place] pH adjusted to patient's actual temperature (Bld) 7.47 High 7.35-7.45 [facility] Comment on above: Order Comment: Speci men Type: ARTERIAL BLOOD SPECIMENOrdering Facility: [facility] Address: [address] [place] [address] Performed By: #### A LLBG ####[facility] LABCLIA [id number] [place] [address] [place] PO2 / FIO2 RATIO 390 mmHg Normal >300 [facility] Comment on above: Order Comment: Speci men Type: ARTERIAL BLOOD SPECIMENOrdering Facility: [facility] Address: [address] [place] [address] Performed By: #### A LLBG ####[facility] LABCLIA [id number] [place] [address] [place] Potassium [Moles/Vol] 4.1 mmol/L Normal 3.5-5.0 [facility] Comment on above: Order Comment: Speci men Type: ARTERIAL BLOOD SPECIMENOrdering Facility: [facility] Address: [address] [place] [address] Performed By: #### A LLBG ####[facility] LABCLIA [id number] [place] [address] [place] Order Comment: Speci men Type: VENOUS BLOOD SPECIMENOrdering Facility: [facility] Address: [address] [place] [address] Performed By: #### 2 4344-4 ####[facility] LABCLIA [id number] [place] [address] [place] Base excess Calc (Bld) [Moles/Vol] 1 mmol/L Normal 0-2 [facility] Comment on above: Order Comment: Speci men Type: ARTERIAL BLOOD SPECIMENOrdering Facility: [facility] Address: [address] [place] [address] Performed By: #### A LLBG ####[facility] LABCLIA [id number] [place] [address] [place] Body temperature 98.6 [degF] Normal [facility] Comment on above: Order Comment: Speci men Type: ARTERIAL BLOOD SPECIMENOrdering Facility: [facility] Address: [address] [place] [address] Performed By: #### A LLBG ####[facility] LABCLIA [id number] [address] [place] Order Comment: Speci men Type: VENOUS BLOOD SPECIMENOrdering Facility: [facility] Address: [address] [place] [address] Performed By: #### 2 4344-4 ####[facility] LABCLIA [id number] [place] [address] [place] Calcium.ionized (Bld) [Mass/Vol] 1.18 mmol/L Normal 1.08-1.30 [facility] Comment on above: Order Comment: Speci men Type: ARTERIAL BLOOD SPECIMENOrdering Facility: [facility] Address: [address] [place] [address] Performed By: #### A LLBG ####[facility] LABIA [id number] [place] [address] [place] Calcium.ionized adjusted to pH 7.4 (BldA) [Moles/Vol] 1.22 mmol/L Normal 1.08-1.30 [facility] Comment on above: Order Comment: Speci men Type: ARTERIAL BLOOD SPECIMENOrdering Facility: [facility] Address: [address] [place] [address] Performed By: #### A LLBG ####[facility] LABIA [id number] [place] [address] [place] Carboxyhemoglobin (BldA) [Mass fraction] 0.6 % Normal 0.0-2.0 [facility] Comment on above: Order Comment: Speci men Type: ARTERIAL BLOOD SPECIMENOrdering Facility: [facility] Address: [address] [place] [address] Result Comment: Carb oxyhemoglobin Reference Range for Smokers: 2.0-8.0% Performed By: #### A LLBG ####[facility] LABIA [id number] [place] [address] [place] CO2 (Bld) [Partial pressure] 36 mm Hg Normal 36-46 [facility] Comment on above: Order Comment: Speci men Type: ARTERIAL BLOOD SPECIMENOrdering Facility: [facility] Address: [address] [place] [address] Performed By: #### A LLBG ####[facility] LABCLIA [id number] [place] [address] [place] FIO2 30 % Normal [facility] Comment on above: Order Comment: Speci men Type: ARTERIAL BLOOD SPECIMENOrdering Facility: [facility] Address: [address] [place] [address] Performed By: #### A LLBG ####[facility] LABCLIA [id number] [place] [address] [place] Order Comment: Speci men Type: VENOUS BLOOD SPECIMENOrdering Facility: [facility] Address: [address] [place] [address] Performed By: #### 2 4344-4 ####[facility] LABCLIA [id number] [place] [address] [place] Glucose [Mass/Vol] 125 mg/dL High 60-105 [facility] Comment on above: Order Comment: Speci men Type: ARTERIAL BLOOD SPECIMENOrdering Facility: [facility] Address: [address] [place] [address] Performed By: #### A LLBG ####[facility] LABCLIA [id number] [place] [address] [place] HCO3 (Bld) [Moles/Vol] 24 mmol/L Normal 22-26 [facility] Comment on above: Order Comment: Speci men Type: ARTERIAL BLOOD SPECIMENOrdering Facility: [facility] Address: [address] [place] [address] Performed By: #### A LLBG ####[facility] LABCLIA [id number] [place] [address] [place] Hematocrit (Bld) [Volume fraction] 33.7 % Low 39.0-51.0 [facility] Comment on above: Order Comment: Speci men Type: ARTERIAL BLOOD SPECIMENOrdering Facility: [facility] Address: [address] [place] [address] Performed By: #### A LLBG ####[facility] LABCLIA [id number] [place] [address] [place] Hemoglobin (Bld) [Mass/Vol] 10.9 g/dL Low 13.0-17.0 [facility] Comment on above: Order Comment: Speci men Type: ARTERIAL BLOOD SPECIMENOrdering Facility: [facility] Address: [address] [place] [address] Performed By: #### A LLBG ####[facility] LABCLIA [id number] [place] [address] [place] Lactate [Moles/Vol] 2.9 mmol/L High 0.5-2.2 [facility] Comment on above: Order Comment: Speci men Type: ARTERIAL BLOOD SPECIMENOrdering Facility: [facility] Address: [address] [place] [address] Performed By: #### A LLBG ####[facility] LABCLIA [id number] [place] [address] [place] Methemoglobin (Bld) [Mass fraction] 1.0 % Normal 0.0-1.5 [facility] Comment on above: Order Comment: Speci men Type: ARTERIAL BLOOD SPECIMENOrdering Facility: [facility] Address: [address] [place] [address] Performed By: #### A LLBG ####[facility] LABCLIA [id number] [place] [address] [place] O2 THERAPY VENT=Ventilator Normal [facility] Comment on above: Order Comment: Speci men Type: ARTERIAL BLOOD SPECIMENOrdering Facility: [facility] Address: [address] [place] [address] Performed By: #### A LLBG ####[facility] LABCLIA [id number] [place] [address] [place] Order Comment: Speci men Type: VENOUS BLOOD SPECIMENOrdering Facility: [facility] Address: [address] [place] [address] Performed By: #### 2 4344-4 ####[facility] LABCLIA [id number] [place] [address] [place] Oxygen (Bld) [Partial pressure] 149 mm Hg High 85-95 [facility] Comment on above: Order Comment: Speci men Type: ARTERIAL BLOOD SPECIMENOrdering Facility: [facility] Address: [address] [place] [address] Performed By: #### A LLBG ####[facility] LABCLIA [id number] [place] [address] [place] Oxyhemoglobin (BldA) [Mass fraction] 97 % Normal 95-98 [facility] Comment on above: Order Comment: Speci men Type: ARTERIAL BLOOD SPECIMENOrdering Facility: [facility] Address: [address] [place] [address] Performed By: #### A LLBG ####[facility] LABCLIA [id number] [place] [address] [place] pH (Bld) 7.45 [pH] Normal 7.35-7.45 [facility] Comment on above: Order Comment: Speci men Type: ARTERIAL BLOOD SPECIMENOrdering Facility: [facility] Address: [address] [place] [address] Performed By: #### A LLBG ####[facility] LABCLIA [id number] [place] [address] [place] PO2 / FIO2 RATIO 497 mmHg Normal >300 [facility] Comment on above: Order Comment: Speci men Type: ARTERIAL BLOOD SPECIMENOrdering Facility: [facility] Address: [address] [place] [address] Performed By: #### A LLBG ####[facility] LABCLIA [id number] [place] [address] [place] Potassium [Moles/Vol] 4.0 mmol/L Normal 3.5-5.0 [facility] Comment on above: Order Comment: Speci men Type: ARTERIAL BLOOD SPECIMENOrdering Facility: [facility] Address: [address] [place] [address] Performed By: #### A LLBG ####[facility] LABIA [id number] [place] [address] [place] Base excess Calc (Bld) [Moles/Vol] 1 mmol/L Normal 0-2 [facility] Comment on above: Order Comment: Speci men Type: ARTERIAL BLOOD SPECIMENOrdering Facility: [facility] Address: [address] [place] [address] Performed By: #### A LLBG ####[facility] LABIA [id number] [place] [address] [place] Calcium.ionized (Bld) [Mass/Vol] 1.17 mmol/L Normal 1.08-1.30 [facility] Comment on above: Order Comment: Speci men Type: ARTERIAL BLOOD SPECIMENOrdering Facility: [facility] Address: [address] [place] [address] Performed By: #### A LLBG ####[facility] LABIA [id number] [place] [address] [place] Calcium.ionized adjusted to pH 7.4 (BldA) [Moles/Vol] 1.20 mmol/L Normal 1.08-1.30 [facility] Comment on above: Order Comment: Speci men Type: ARTERIAL BLOOD SPECIMENOrdering Facility: [facility] Address: [address] [place] [address] Performed By: #### A LLBG ####[facility] LABIA [id number] [place] [address] [place] Carboxyhemoglobin (BldA) [Mass fraction] 1.2 % Normal 0.0-2.0 [facility] Comment on above: Order Comment: Speci men Type: ARTERIAL BLOOD SPECIMENOrdering Facility: [facility] Address: [address] [place] [address] Result Comment: Carb oxyhemoglobin Reference Range for Smokers: 2.0-8.0% Performed By: #### A LLBG ####[facility] LABCLIA [id number] [place] [address] [place] CO2 (Bld) [Partial pressure] 36 mm Hg Normal 36-46 [facility] Comment on above: Order Comment: Speci men Type: ARTERIAL BLOOD SPECIMENOrdering Facility: [facility] Address: [address] [place] [address] Performed By: #### A LLBG ####[facility] LABCLIA [id number] [place] [address] [place] Glucose [Mass/Vol] 152 mg/dL High 60-105 [facility] Comment on above: Order Comment: Speci men Type: ARTERIAL BLOOD SPECIMENOrdering Facility: [facility] Address: [address] [place] [address] Performed By: #### A LLBG ####[facility] LABCLIA [id number] [place] [address] [place] HCO3 (Bld) [Moles/Vol] 24 mmol/L Normal 22-26 [facility] Comment on above: Order Comment: Speci men Type: ARTERIAL BLOOD SPECIMENOrdering Facility: [facility] Address: [address] [place] [address] Performed By: #### A LLBG ####[facility] LABCLIA [id number] [place] [address] [place] Hematocrit (Bld) [Volume fraction] 33.9 % Low 39.0-51.0 [facility] Comment on above: Order Comment: Speci men Type: ARTERIAL BLOOD SPECIMENOrdering Facility: [facility] Address: [address] [place] [address] Performed By: #### A LLBG ####[facility] LABCLIA [id number] [place] [address] [place] Hemoglobin (Bld) [Mass/Vol] 11.0 g/dL Low 13.0-17.0 [facility] Comment on above: Order Comment: Speci men Type: ARTERIAL BLOOD SPECIMENOrdering Facility: [facility] Address: [address] [place] [address] Performed By: #### A LLBG ####[facility] LABIA [id number] [place] [address] [place] Lactate [Moles/Vol] 4.6 mmol/L High 0.5-2.2 [facility] Comment on above: Order Comment: Speci men Type: ARTERIAL BLOOD SPECIMENOrdering Facility: [facility] Address: [address] [place] [address] Performed By: #### A LLBG ####[facility] LABIA [id number] [place] [address] [place] Methemoglobin (Bld) [Mass fraction] 1.2 % Normal 0.0-1.5 [facility] Comment on above: Order Comment: Speci men Type: ARTERIAL BLOOD SPECIMENOrdering Facility: [facility] Address: [address] [place] [address] Performed By: #### A LLBG ####[facility] LABIA [id number] [place] [address] [place] Oxygen (Bld) [Partial pressure] 125 mm Hg High 85-95 [facility] Comment on above: Order Comment: Speci men Type: ARTERIAL BLOOD SPECIMENOrdering Facility: [facility] Address: [address] [place] [address] Performed By: #### A LLBG ####[facility] LABIA [id number] [place] [address] [place] Oxyhemoglobin (BldA) [Mass fraction] 97 % Normal 95-98 [facility] Comment on above: Order Comment: Speci men Type: ARTERIAL BLOOD SPECIMENOrdering Facility: [facility] Address: [address] [place] [address] Performed By: #### A LLBG ####[facility] LABCLIA [id number] [place] [address] [place] pH (Bld) 7.44 [pH] Normal 7.35-7.45 [facility] Comment on above: Order Comment: Speci men Type: ARTERIAL BLOOD SPECIMENOrdering Facility: [facility] Address: [address] [place] [address] Performed By: #### A LLBG ####[facility] LABCLIA [id number] [place] [address] [place] PO2 / FIO2 RATIO 417 mmHg Normal >300 [facility] Comment on above: Order Comment: Speci men Type: ARTERIAL BLOOD SPECIMENOrdering Facility: [facility] Address: [address] [place] [address] Performed By: #### A LLBG ####[facility] LABCLIA [id number] [place] [address] [place] Sodium [Moles/Vol] 137 mmol/L Normal 136-144 [facility] Comment on above: Order Comment: Speci men Type: ARTERIAL BLOOD SPECIMENOrdering Facility: [facility] Address: [address] [place] [address] Performed By: #### A LLBG ####[facility] LABCLIA [id number] [place] [address] [place] Base excess Calc (Bld) [Moles/Vol] 0 mmol/L Normal 0-2 [facility] Comment on above: Order Comment: Speci men Type: ARTERIAL BLOOD SPECIMENOrdering Facility: [facility] Address: [address] [place] [address] Performed By: #### A LLBG ####[facility] LABCLIA [id number] [address] [place] Body temperature 98.6 [degF] Normal [facility] Comment on above: Order Comment: Speci men Type: ARTERIAL BLOOD SPECIMENOrdering Facility: [facility] Address: [address] [place] [address] Performed By: #### A LLBG ####[facility] LABCLIA [id number] [address] [place] Order Comment: Speci men Type: VENOUS BLOOD SPECIMENOrdering Facility: [facility] Address: [address] [place] [address] Performed By: #### 2 4344-4 ####[facility] LABCLIA [id number] [place] [address] [place] Calcium.ionized (Bld) [Mass/Vol] 1.18 mmol/L Normal 1.08-1.30 [facility] Comment on above: Order Comment: Speci men Type: ARTERIAL BLOOD SPECIMENOrdering Facility: [facility] Address: [address] [place] [address] Performed By: #### A LLBG ####[facility] LABCLIA [id number] [address] [place] Order Comment: Speci men Type: VENOUS BLOOD SPECIMENOrdering Facility: [facility] Address: [address] [place] [address] Performed By: #### 2 4344-4 ####[facility] LABCLIA [id number] [place] [address] [place] Calcium.ionized adjusted to pH 7.4 (BldA) [Moles/Vol] 1.20 mmol/L Normal 1.08-1.30 [facility] Comment on above: Order Comment: Speci men Type: ARTERIAL BLOOD SPECIMENOrdering Facility: [facility] Address: [address] [place] [address] Performed By: #### A LLBG ####[facility] LABCLIA [id number] [place] [address] [place] Carboxyhemoglobin (BldA) [Mass fraction] 0.6 % Normal 0.0-2.0 [facility] Comment on above: Order Comment: Speci men Type: ARTERIAL BLOOD SPECIMENOrdering Facility: [facility] Address: [address] [place] [address] Result Comment: Carb oxyhemoglobin Reference Range for Smokers: 2.0-8.0% Performed By: #### A LLBG ####[facility] LABCLIA [id number] [place] [address] [place] CO2 (Bld) [Partial pressure] 35 mm Hg Low 36-46 [facility] Comment on above: Order Comment: Speci men Type: ARTERIAL BLOOD SPECIMENOrdering Facility: [facility] Address: [address] [place] [address] Performed By: #### A LLBG ####[facility] LABIA [id number] [place] [address] [place] FIO2 40 % Normal [facility] Comment on above: Order Comment: Speci men Type: ARTERIAL BLOOD SPECIMENOrdering Facility: [facility] Address: [address] [place] [address] Performed By: #### A LLBG ####[facility] LABIA [id number] [place] [address] [place] Order Comment: Speci men Type: VENOUS BLOOD SPECIMENOrdering Facility: [facility] Address: [address] [place] [address] Performed By: #### 2 4344-4 ####[facility] LABIA [id number] [place] [address] [place] Glucose [Mass/Vol] 148 mg/dL High 60-105 [facility] Comment on above: Order Comment: Speci men Type: ARTERIAL BLOOD SPECIMENOrdering Facility: [facility] Address: [address] [place] [address] Performed By: #### A LLBG ####[facility] LABCLIA [id number] [place] [address] [place] Order Comment: Speci men Type: VENOUS BLOOD SPECIMENOrdering Facility: [facility] Address: [address] [place] [address] Performed By: #### 2 4344-4 ####[facility] LABCLIA [id number] [place] [address] [place] HCO3 (Bld) [Moles/Vol] 24 mmol/L Normal 22-26 [facility] Comment on above: Order Comment: Speci men Type: ARTERIAL BLOOD SPECIMENOrdering Facility: [facility] Address: [address] [place] [address] Performed By: #### A LLBG ####[facility] LABCLIA [id number] [place] [address] [place] Hematocrit (Bld) [Volume fraction] 34.6 % Low 39.0-51.0 [facility] Comment on above: Order Comment: Speci men Type: ARTERIAL BLOOD SPECIMENOrdering Facility: [facility] Address: [address] [place] [address] Performed By: #### A LLBG ####[facility] LABCLIA [id number] [place] [address] [place] Hemoglobin (Bld) [Mass/Vol] 11.2 g/dL Low 13.0-17.0 [facility] Comment on above: Order Comment: Speci men Type: ARTERIAL BLOOD SPECIMENOrdering Facility: [facility] Address: [address] [place] [address] Performed By: #### A LLBG ####[facility] LABCLIA [id number] [place] [address] [place] Lactate [Moles/Vol] 4.8 mmol/L High 0.5-2.2 [facility] Comment on above: Order Comment: Speci men Type: ARTERIAL BLOOD SPECIMENOrdering Facility: [facility] Address: [address] [place] [id number] Performed By: #### A LLBG ####[facility] LABCLIA [id number] [place] [id number] [place] Methemoglobin (Bld) [Mass fraction] 1.0 % Normal 0.0-1.5 [facility] Comment on above: Order Comment: Speci men Type: ARTERIAL BLOOD SPECIMENOrdering Facility: [facility] Address: [address] [place] [id number] Performed By: #### A LLBG ####[facility] LABCLIA [id number] [place] [address] [place] O2 THERAPY VENT=Ventilator Normal [facility] Comment on above: Order Comment: Speci men Type: ARTERIAL BLOOD SPECIMENOrdering Facility: [facility] Address: [address] [place] [address] Performed By: #### A LLBG ####[facility] LABCLIA [id number] [place] [address] [place] Order Comment: Speci men Type: VENOUS BLOOD SPECIMENOrdering Facility: [facility] Address: [address] [place], [place] [id number] Performed By: #### 2 4344-4 ####[facility] LABCLIA [id number] [place] [address] [place] Oxygen (Bld) [Partial pressure] 114 mm Hg High 85-95 [facility] Comment on above: Order Comment: Speci men Type: ARTERIAL BLOOD SPECIMENOrdering Facility: [facility] Address: [address] [place], [place] [id number] Performed By: #### A LLBG ####[facility] LABCLIA [id number] [place] [id number] [place] Oxyhemoglobin (BldA) [Mass fraction] 97 % Normal 95-98 [facility] Comment on above: Order Comment: Speci men Type: ARTERIAL BLOOD SPECIMENOrdering Facility: [facility] Address: [address] [place] [address] Performed By: #### A LLBG ####[facility] LABCLIA [id number] [place] [address] [place] pH (Bld) 7.44 [pH] Normal 7.35-7.45 [facility] Comment on above: Order Comment: Speci men Type: ARTERIAL BLOOD SPECIMENOrdering Facility: [facility] Address: [address] [place] [address] Performed By: #### A LLBG ####[facility] LABCLIA [id number] [place] [address] [place] PO2 / FIO2 RATIO 285 mmHg Low >300 [facility] Comment on above: Order Comment: Speci men Type: ARTERIAL BLOOD SPECIMENOrdering Facility: [facility] Address: [address] [place] [address] Performed By: #### A LLBG ####[facility] LABCLIA [id number] [place] [address] [place] Potassium [Moles/Vol] 3.8 mmol/L Normal 3.5-5.0 [facility] Comment on above: Order Comment: Speci men Type: ARTERIAL BLOOD SPECIMENOrdering Facility: [facility] Address: [address] [place] [address] Performed By: #### A LLBG ####[facility] LABCLIA [id number] [place] [address] [place] Base excess Calc (Bld) [Moles/Vol] 0 mmol/L Normal 0-2 [facility] Comment on above: Order Comment: Speci men Type: ARTERIAL BLOOD SPECIMENOrdering Facility: [facility] Address: [address] [place] [address] Performed By: #### A LLBG ####[facility] LABCLIA [id number] [place] [address] [place] Body temperature 98.6 [degF] Normal [facility] Comment on above: Order Comment: Speci men Type: ARTERIAL BLOOD SPECIMENOrdering Facility: [facility] Address: [address] [place] [address] Performed By: #### A LLBG ####[facility] LABCLIA [id number] [place] [address] [place] Order Comment: Speci men Type: VENOUS BLOOD SPECIMENOrdering Facility: [facility] Address: [address] [place] [address] Performed By: #### 2 4344-4 ####[facility] LABCLIA [id number] [place] [address] [place] Calcium.ionized (Bld) [Mass/Vol] 1.18 mmol/L Normal 1.08-1.30 [facility] Comment on above: Order Comment: Speci men Type: ARTERIAL BLOOD SPECIMENOrdering Facility: [facility] Address: [address] [place] [address] Performed By: #### A LLBG ####[facility] LABIA [id number] [place] [address] [place] Calcium.ionized adjusted to pH 7.4 (BldA) [Moles/Vol] 1.19 mmol/L Normal 1.08-1.30 [facility] Comment on above: Order Comment: Speci men Type: ARTERIAL BLOOD SPECIMENOrdering Facility: [facility] Address: [address] [place] [address] Performed By: #### A LLBG ####[facility] LABCLIA [id number] [place] [address] [place] Carboxyhemoglobin (BldA) [Mass fraction] 1.2 % Normal 0.0-2.0 [facility] Comment on above: Order Comment: Speci men Type: ARTERIAL BLOOD SPECIMENOrdering Facility: [facility] Address: [address] [place] [address] Result Comment: Carb oxyhemoglobin Reference Range for Smokers: 2.0-8.0% Performed By: #### A LLBG ####[facility] LABCLIA [id number] [place] [address] [place] CO2 (Bld) [Partial pressure] 38 mm Hg Normal 36-46 [facility] Comment on above: Order Comment: Speci men Type: ARTERIAL BLOOD SPECIMENOrdering Facility: [facility] Address: [address] [place] [address] Performed By: #### A LLBG ####[facility] LABCLIA [id number] [place] [address] [place] FIO2 60 % Normal [facility] Comment on above: Order Comment: Speci men Type: ARTERIAL BLOOD SPECIMENOrdering Facility: [facility] Address: [address] [place] [address] Performed By: #### A LLBG ####[facility] LABCLIA [id number] [place] [address] [place] Order Comment: Speci men Type: VENOUS BLOOD SPECIMENOrdering Facility: [facility] Address: [address] [place] [address] Performed By: #### 2 4344-4 ####[facility] LABCLIA [id number] [place] [address] [place] Glucose [Mass/Vol] 150 mg/dL High 60-105 [facility] Comment on above: Order Comment: Speci men Type: ARTERIAL BLOOD SPECIMENOrdering Facility: [facility] Address: [address] [place] [address] Performed By: #### A LLBG ####[facility] LABCLIA [id number] [place] [address] [place] Order Comment: Speci men Type: VENOUS BLOOD SPECIMENOrdering Facility: [facility] Address: [address] [place] [address] Performed By: #### 2 4344-4 ####[facility] LABCLIA [id number] [place] [address] [place] HCO3 (Bld) [Moles/Vol] 24 mmol/L Normal 24-28 [facility] Comment on above: Order Comment: Speci men Type: ARTERIAL BLOOD SPECIMENOrdering Facility: [facility] Address: [address] [place] [address] Performed By: #### A LLBG ####[facility] LABCLIA [id number] [address] [place] Order Comment: Speci men Type: VENOUS BLOOD SPECIMENOrdering Facility: [facility] Address: [address] [place] [address] Performed By: #### 2 4344-4 ####[facility] LABCLIA [id number] [place] [address] [place] Hematocrit (Bld) [Volume fraction] 35.3 % Low 39.0-51.0 [facility] Comment on above: Order Comment: Speci men Type: ARTERIAL BLOOD SPECIMENOrdering Facility: [facility] Address: [address] [place] [address] Performed By: #### A LLBG ####[facility] LABCLIA [id number] [place] [address] [place] Hemoglobin (Bld) [Mass/Vol] 11.5 g/dL Low 13.0-17.0 [facility] Comment on above: Order Comment: Speci men Type: ARTERIAL BLOOD SPECIMENOrdering Facility: [facility] Address: [address] [place] [address] Performed By: #### A LLBG ####[facility] LABCLIA [id number] [address] [place] Order Comment: Speci men Type: VENOUS BLOOD SPECIMENOrdering Facility: [facility] Address: [address] [place] [address] Performed By: #### 2 4344-4 ####[facility] LABCLIA [id number] [place] [address] [place] Lactate [Moles/Vol] 5.2 mmol/L High 0.5-2.2 [facility] Comment on above: Order Comment: Speci men Type: ARTERIAL BLOOD SPECIMENOrdering Facility: [facility] Address: [address] [place] [address] Performed By: #### A LLBG ####[facility] LABCLIA [id number] [place] [address] [place] Methemoglobin (Bld) [Mass fraction] 1.3 % Normal 0.0-1.5 [facility] Comment on above: Order Comment: Speci men Type: ARTERIAL BLOOD SPECIMENOrdering Facility: [facility] Address: [address] [place] [address] Performed By: #### A LLBG ####[facility] LABCLIA [id number] [place] [address] [place] O2 THERAPY VENT=Ventilator Normal [facility] Comment on above: Order Comment: Speci men Type: ARTERIAL BLOOD SPECIMENOrdering Facility: [facility] Address: [address] [place] [address] Performed By: #### A LLBG ####[facility] LABCLIA [id number] [place] [address] [place] Order Comment: Speci men Type: VENOUS BLOOD SPECIMENOrdering Facility: [facility] Address: [address] [place] [address] Performed By: #### 2 4344-4 ####[facility] LABCLIA [id number] [place] [address] [place] Oxygen (Bld) [Partial pressure] 135 mm Hg High 85-95 [facility] Comment on above: Order Comment: Speci men Type: ARTERIAL BLOOD SPECIMENOrdering Facility: [facility] Address: [address] [place] [address] Performed By: #### A LLBG ####[facility] LABCLIA [id number] [place] [address] [place] Oxyhemoglobin (BldA) [Mass fraction] 97 % Normal 95-98 [facility] Comment on above: Order Comment: Speci men Type: ARTERIAL BLOOD SPECIMENOrdering Facility: [facility] Address: [address] [place] [address] Performed By: #### A LLBG ####[facility] LABCLIA [id number] [place] [address] [place] pH (Bld) 7.41 [pH] Normal 7.35-7.45 [facility] Comment on above: Order Comment: Speci men Type: ARTERIAL BLOOD SPECIMENOrdering Facility: [facility] Address: [address] [place] [address] Performed By: #### A LLBG ####[facility] LABCLIA [id number] [place] [address] [place] PO2 / FIO2 RATIO 225 mmHg Low >300 [facility] Comment on above: Order Comment: Speci men Type: ARTERIAL BLOOD SPECIMENOrdering Facility: [facility] Address: [address] [place] [address] Performed By: #### A LLBG ####[facility] LABCLIA [id number] [place] [address] [place] Potassium [Moles/Vol] 3.7 mmol/L Normal 3.5-5.0 [facility] Comment on above: Order Comment: Speci men Type: ARTERIAL BLOOD SPECIMENOrdering Facility: [facility] Address: [address] [place] [address] Performed By: #### A LLBG ####[facility] LABCLIA [id number] [place] [address] [place] Order Comment: Speci men Type: VENOUS BLOOD SPECIMENOrdering Facility: [facility] Address: [address] [place] [address] Performed By: #### 2 4344-4 ####[facility] [id number] [place] [address] [place] Base deficit (BldA) [Moles/Vol] -2 mmol/L Normal -2-0 [facility] Comment on above: Order Comment: Speci men Type: ARTERIAL BLOOD SPECIMENOrdering Facility: [facility] Address: [address] [place] [address] Performed By: #### A LLBG ####[facility] [id number] [place] [address] [place] Calcium.ionized (Bld) [Mass/Vol] 1.20 mmol/L Normal 1.08-1.30 [facility] Comment on above: Order Comment: Speci men Type: ARTERIAL BLOOD SPECIMENOrdering Facility: [facility] Address: [address] [place] [address] Performed By: #### A LLBG ####[facility] [id number] [place] [address] [place] Calcium.ionized adjusted to pH 7.4 (BldA) [Moles/Vol] 1.18 mmol/L Normal 1.08-1.30 [facility] Comment on above: Order Comment: Speci men Type: ARTERIAL BLOOD SPECIMENOrdering Facility: [facility] Address: [address] [place] [address] Performed By: #### A LLBG ####[facility] [id number] [place] [address] [place] Carboxyhemoglobin (BldA) [Mass fraction] 1.2 % Normal 0.0-2.0 [facility] Comment on above: Order Comment: Speci men Type: ARTERIAL BLOOD SPECIMENOrdering Facility: [facility] Address: [address] [place] [address] Result Comment: Carb oxyhemoglobin Reference Range for Smokers: 2.0-8.0% Performed By: #### A LLBG ####[facility] LABCLIA [id number] [place] [address] [place] CO2 (Bld) [Partial pressure] 41 mm Hg Normal 36-46 [facility] Comment on above: Order Comment: Speci men Type: ARTERIAL BLOOD SPECIMENOrdering Facility: [facility] Address: [address] [place] [address] Performed By: #### A LLBG ####[facility] LABCLIA [id number] [place] [address] [place] Glucose [Mass/Vol] 181 mg/dL High 60-105 [facility] Comment on above: Order Comment: Speci men Type: ARTERIAL BLOOD SPECIMENOrdering Facility: [facility] Address: [address] [place] [address] Performed By: #### A LLBG ####[facility] LABCLIA [id number] [place] [address] [place] HCO3 (Bld) [Moles/Vol] 23 mmol/L Normal 22-26 [facility] Comment on above: Order Comment: Speci men Type: ARTERIAL BLOOD SPECIMENOrdering Facility: [facility] Address: [address] [place] [address] Performed By: #### A LLBG ####[facility] LABCLIA [id number] [place] [address] [place] Hematocrit (Bld) [Volume fraction] 34.8 % Low 39.0-51.0 [facility] Comment on above: Order Comment: Speci men Type: ARTERIAL BLOOD SPECIMENOrdering Facility: [facility] Address: [address] [place] [address] Performed By: #### A LLBG ####[facility] LABIA [id number] [place] [address] [place] Hemoglobin (Bld) [Mass/Vol] 11.3 g/dL Low 13.0-17.0 [facility] Comment on above: Order Comment: Speci men Type: ARTERIAL BLOOD SPECIMENOrdering Facility: [facility] Address: [address] [place] [address] Performed By: #### A LLBG ####[facility] LABIA [id number] [place] [address] [place] Lactate [Moles/Vol] 5.5 mmol/L High 0.5-2.2 [facility] Comment on above: Order Comment: Speci men Type: ARTERIAL BLOOD SPECIMENOrdering Facility: [facility] Address: [address] [place] [address] Performed By: #### A LLBG ####[facility] LABIA [id number] [place] [address] [place] Oxygen (Bld) [Partial pressure] 132 mm Hg High 85-95 [facility] Comment on above: Order Comment: Speci men Type: ARTERIAL BLOOD SPECIMENOrdering Facility: [facility] Address: [address] [place] [address] Performed By: #### A LLBG ####[facility] LABIA [id number] [place] [address] [place] Oxyhemoglobin (BldA) [Mass fraction] 97 % Normal 95-98 [facility] Comment on above: Order Comment: Speci men Type: ARTERIAL BLOOD SPECIMENOrdering Facility: [facility] Address: [address] [place] [address] Performed By: #### A LLBG ####[facility] LABIA [id number] [place] [id number] [place] pH (Bld) 7.37 [pH] Normal 7.35-7.45 [facility] Comment on above: Order Comment: Speci men Type: ARTERIAL BLOOD SPECIMENOrdering Facility: [facility] Address: [address] [place] [address] Performed By: #### A LLBG ####[facility] LABCLIA [id number] [place] [address] [place] PO2 / FIO2 RATIO 132 mmHg Low >300 [facility] Comment on above: Order Comment: Speci men Type: ARTERIAL BLOOD SPECIMENOrdering Facility: [facility] Address: [address] [place] [address] Performed By: #### A LLBG ####[facility] LABCLIA [id number] [place] [address] [place] Base deficit (BldA) [Moles/Vol] -2 mmol/L Normal -2-0 [facility] Comment on above: Order Comment: Speci men Type: ARTERIAL BLOOD SPECIMENOrdering Facility: [facility] Address: [address] [place] [address] Performed By: #### A LLBG ####[facility] LABCLIA [id number] [place] [address] [place] Body temperature 98.6 [degF] Normal [facility] Comment on above: Order Comment: Speci men Type: ARTERIAL BLOOD SPECIMENOrdering Facility: [facility] Address: [address] [place] [address] Performed By: #### A LLBG ####[facility] LABCLIA [id number] [place] [address] [place] Calcium.ionized (Bld) [Mass/Vol] 1.14 mmol/L Normal 1.08-1.30 [facility] Comment on above: Order Comment: Speci men Type: ARTERIAL BLOOD SPECIMENOrdering Facility: [facility] Address: [address] [place] [address] Performed By: #### A LLBG ####[facility] LABCLIA [id number] [place] [address] [place] Calcium.ionized adjusted to pH 7.4 (BldA) [Moles/Vol] 1.14 mmol/L Normal 1.08-1.30 [facility] Comment on above: Order Comment: Speci men Type: ARTERIAL BLOOD SPECIMENOrdering Facility: [facility] Address: [address] [place] [address] Performed By: #### A LLBG ####[facility] LABCLIA [id number] [place] [address] [place] Carboxyhemoglobin (BldA) [Mass fraction] 1.6 % Normal 0.0-2.0 [facility] Comment on above: Order Comment: Speci men Type: ARTERIAL BLOOD SPECIMENOrdering Facility: [facility] Address: [address] [place] [address] Result Comment: Carb oxyhemoglobin Reference Range for Smokers: 2.0-8.0% Performed By: #### A LLBG ####[facility] LABCLIA [id number] [place] [address] [place] CO2 (Bld) [Partial pressure] 37 mm Hg Normal 36-46 [facility] Comment on above: Order Comment: Speci men Type: ARTERIAL BLOOD SPECIMENOrdering Facility: [facility] Address: [address] [place] [address] Performed By: #### A LLBG ####[facility] LABCLIA [id number] [place] [address] [place] FIO2 30 % Normal [facility] Comment on above: Order Comment: Speci men Type: ARTERIAL BLOOD SPECIMENOrdering Facility: [facility] Address: [address] [place] [address] Performed By: #### A LLBG ####[facility] LABCLIA [id number] [place] [address] [place] Glucose [Mass/Vol] 152 mg/dL High 60-105 [facility] Comment on above: Order Comment: Speci men Type: ARTERIAL BLOOD SPECIMENOrdering Facility: [facility] Address: [address] [place] [address] Performed By: #### A LLBG ####[facility] LABCLIA [id number] [place] [address] [place] HCO3 (Bld) [Moles/Vol] 22 mmol/L Normal 22-26 [facility] Comment on above: Order Comment: Speci men Type: ARTERIAL BLOOD SPECIMENOrdering Facility: [facility] Address: [address] [place] [address] Performed By: #### A LLBG ####[facility] LABIA [id number] [place] [address] [place] Hematocrit (Bld) [Volume fraction] 33.5 % Low 39.0-51.0 [facility] Comment on above: Order Comment: Speci men Type: ARTERIAL BLOOD SPECIMENOrdering Facility: [facility] Address: [address] [place] [address] Performed By: #### A LLBG ####[facility] LABIA [id number] [place] [address] [place] Hemoglobin (Bld) [Mass/Vol] 10.9 g/dL Low 13.0-17.0 [facility] Comment on above: Order Comment: Speci men Type: ARTERIAL BLOOD SPECIMENOrdering Facility: [facility] Address: [address] [place] [address] Performed By: #### A LLBG ####[facility] LABIA [id number] [place] [address] [place] Lactate [Moles/Vol] 6.0 mmol/L High 0.5-2.2 [facility] Comment on above: Order Comment: Speci men Type: ARTERIAL BLOOD SPECIMENOrdering Facility: [facility] Address: [address] [place] [address] Performed By: #### A LLBG ####[facility] LABCLIA [id number] [place] [address] [place] Methemoglobin (Bld) [Mass fraction] 0.6 % Normal 0.0-1.5 [facility] Comment on above: Order Comment: Speci men Type: ARTERIAL BLOOD SPECIMENOrdering Facility: [facility] Address: [address] [place] [address] Performed By: #### A LLBG ####[facility] LABCLIA [id number] [place] [address] [place] O2 THERAPY VENT=Ventilator Normal [facility] Comment on above: Order Comment: Speci men Type: ARTERIAL BLOOD SPECIMENOrdering Facility: [facility] Address: [address] [place] [address] Performed By: #### A LLBG ####[facility] LABIA [id number] [place] [address] [place] Oxygen (Bld) [Partial pressure] 59 mm Hg Low 85-95 [facility] Comment on above: Order Comment: Speci men Type: ARTERIAL BLOOD SPECIMENOrdering Facility: [facility] Address: [address] [place] [address] Performed By: #### A LLBG ####[facility] LABIA [id number] [place] [address] [place] Oxyhemoglobin (BldA) [Mass fraction] 89 % Low 95-98 [facility] Comment on above: Order Comment: Speci men Type: ARTERIAL BLOOD SPECIMENOrdering Facility: [facility] Address: [address] [place] [address] Performed By: #### A LLBG ####[facility] LABIA [id number] [place] [id number] [place] pH (Bld) 7.39 [pH] Normal 7.35-7.45 [facility] Comment on above: Order Comment: Speci men Type: ARTERIAL BLOOD SPECIMENOrdering Facility: [facility] Address: [address] [place] [address] Performed By: #### A LLBG ####[facility] LABCLIA [id number] [place] [address] [place] PO2 / FIO2 RATIO 197 mmHg Low >300 [facility] Comment on above: Order Comment: Speci men Type: ARTERIAL BLOOD SPECIMENOrdering Facility: [facility] Address: [address] [place] [address] Performed By: #### A LLBG ####[facility] LABCLIA [id number] [place] [address] [place] Potassium [Moles/Vol] 4.2 mmol/L Normal 3.5-5.0 [facility] Comment on above: Order Comment: Speci men Type: ARTERIAL BLOOD SPECIMENOrdering Facility: [facility] Address: [address] [place] [address] Performed By: #### A LLBG ####[facility] LABCLIA [id number] [place] [address] [place] Sodium [Moles/Vol] 135 mmol/L Low 136-144 [facility] Comment on above: Order Comment: Speci men Type: ARTERIAL BLOOD SPECIMENOrdering Facility: [facility] Address: [address] [place] [address] Performed By: #### A LLBG ####[facility] LABCLIA [id number] [place] [address] [place] Base deficit (BldA) [Moles/Vol] -3 mmol/L Low -2-0 [facility] Comment on above: Order Comment: Speci men Type: ARTERIAL BLOOD SPECIMENOrdering Facility: [facility] Address: [address] [place] [address] Performed By: #### A LLBG ####[facility] LABCLIA [id number] [place] [address] [place] Calcium.ionized (Bld) [Mass/Vol] 1.18 mmol/L Normal 1.08-1.30 [facility] Comment on above: Order Comment: Speci men Type: ARTERIAL BLOOD SPECIMENOrdering Facility: [facility] Address: [address] [place] [address] Performed By: #### A LLBG ####[facility] LABCLIA [id number] [place] [address] [place] Calcium.ionized adjusted to pH 7.4 (BldA) [Moles/Vol] 1.18 mmol/L Normal 1.08-1.30 [facility] Comment on above: Order Comment: Speci men Type: ARTERIAL BLOOD SPECIMENOrdering Facility: [facility] Address: [address] [place] [address] Performed By: #### A LLBG ####[facility] LABIA [id number] [place] [address] [place] Carboxyhemoglobin (BldA) [Mass fraction] 1.1 % Normal 0.0-2.0 [facility] Comment on above: Order Comment: Speci men Type: ARTERIAL BLOOD SPECIMENOrdering Facility: [facility] Address: [address] [place] [address] Result Comment: Carb oxyhemoglobin Reference Range for Smokers: 2.0-8.0% Performed By: #### A LLBG ####[facility] LABCLIA [id number] [place] [address] [place] CO2 (Bld) [Partial pressure] 34 mm Hg Low 36-46 [facility] Comment on above: Order Comment: Speci men Type: ARTERIAL BLOOD SPECIMENOrdering Facility: [facility] Address: [address] [place] [address] Performed By: #### A LLBG ####[facility] LABCLIA [id number] [place] [address] [place] Glucose [Mass/Vol] 148 mg/dL High 60-105 [facility] Comment on above: Order Comment: Speci men Type: ARTERIAL BLOOD SPECIMENOrdering Facility: [facility] Address: [address] [place] [address] Performed By: #### A LLBG ####[facility] LABCLIA [id number] [place] [address] [place] HCO3 (Bld) [Moles/Vol] 21 mmol/L Low 22-26 [facility] Comment on above: Order Comment: Speci men Type: ARTERIAL BLOOD SPECIMENOrdering Facility: [facility] Address: [address] [place] [address] Performed By: #### A LLBG ####[facility] LABCLIA [id number] [place] [address] [place] Hematocrit (Bld) [Volume fraction] 34.2 % Low 39.0-51.0 [facility] Comment on above: Order Comment: Speci men Type: ARTERIAL BLOOD SPECIMENOrdering Facility: [facility] Address: [address] [place] [address] Performed By: #### A LLBG ####[facility] LABCLIA [id number] [place] [address] [place] Hemoglobin (Bld) [Mass/Vol] 11.1 g/dL Low 13.0-17.0 [facility] Comment on above: Order Comment: Speci men Type: ARTERIAL BLOOD SPECIMENOrdering Facility: [facility] Address: [address] [place] [address] Performed By: #### A LLBG ####[facility] LABCLIA [id number] [place] [address] [place] Lactate [Moles/Vol] 6.4 mmol/L High 0.5-2.2 [facility] Comment on above: Order Comment: Speci men Type: ARTERIAL BLOOD SPECIMENOrdering Facility: [facility] Address: [address] [place] [address] Performed By: #### A LLBG ####[facility] LABCLIA [id number] [place] [address] [place] Methemoglobin (Bld) [Mass fraction] 0.6 % Normal 0.0-1.5 [facility] Comment on above: Order Comment: Speci men Type: ARTERIAL BLOOD SPECIMENOrdering Facility: [facility] Address: [address] [place] [address] Performed By: #### A LLBG ####[facility] LABIA [id number] [place] [address] [place] Oxygen (Bld) [Partial pressure] 93 mm Hg Normal 85-95 [facility] Comment on above: Order Comment: Speci men Type: ARTERIAL BLOOD SPECIMENOrdering Facility: [facility] Address: [address] [place] [address] Performed By: #### A LLBG ####[facility] LABIA [id number] [place] [address] [place] Oxyhemoglobin (BldA) [Mass fraction] 96 % Normal 95-98 [facility] Comment on above: Order Comment: Speci men Type: ARTERIAL BLOOD SPECIMENOrdering Facility: [facility] Address: [address] [place] [address] Performed By: #### A LLBG ####[facility] LABIA [id number] [place] [address] [place] pH (Bld) 7.40 [pH] Normal 7.35-7.45 [facility] Comment on above: Order Comment: Speci men Type: ARTERIAL BLOOD SPECIMENOrdering Facility: [facility] Address: [address] [place] [address] Performed By: #### A LLBG ####[facility] LABIA [id number] [place] [id number] [place] PO2 / FIO2 RATIO 310 mmHg Normal >300 [facility] Comment on above: Order Comment: Speci men Type: ARTERIAL BLOOD SPECIMENOrdering Facility: [facility] Address: [address] [place] [address] Performed By: #### A LLBG ####[facility] LABIA [id number] [place] [address] [place] Potassium [Moles/Vol] 4.3 mmol/L Normal 3.5-5.0 [facility] Comment on above: Order Comment: Speci men Type: ARTERIAL BLOOD SPECIMENOrdering Facility: [facility] Address: [address] [place] [address] Performed By: #### A LLBG ####[facility] [id number] [place] [address] [place] Base deficit (BldA) [Moles/Vol] -2 mmol/L Normal -2-0 [facility] Comment on above: Order Comment: Speci men Type: ARTERIAL BLOOD SPECIMENOrdering Facility: [facility] Address: [address] [place] [address] Performed By: #### A LLBG ####[facility] [id number] [place] [address] [place] Calcium.ionized adjusted to pH 7.4 (BldA) [Moles/Vol] 1.17 mmol/L Normal 1.08-1.30 [facility] Comment on above: Order Comment: Speci men Type: ARTERIAL BLOOD SPECIMENOrdering Facility: [facility] Address: [address] [place] [address] Performed By: #### A LLBG ####[facility] [id number] [place] [address] [place] Carboxyhemoglobin (BldA) [Mass fraction] 1.3 % Normal 0.0-2.0 [facility] Comment on above: Order Comment: Speci men Type: ARTERIAL BLOOD SPECIMENOrdering Facility: [facility] Address: [address] [place] [address] Result Comment: Carb oxyhemoglobin Reference Range for Smokers: 2.0-8.0% Performed By: #### A LLBG ####[facility] LABCLIA [id number] [place] [address] [place] CO2 (Bld) [Partial pressure] 36 mm Hg Normal 36-46 [facility] Comment on above: Order Comment: Speci men Type: ARTERIAL BLOOD SPECIMENOrdering Facility: [facility] Address: [address] [place] [address] Performed By: #### A LLBG ####[facility] LABCLIA [id number] [place] [address] [place] CO2 adjusted to patient's actual temperature (Bld) [Partial pressure] 37 mmHg Normal 36-46 [facility] Comment on above: Order Comment: Speci men Type: ARTERIAL BLOOD SPECIMENOrdering Facility: [facility] Address: [address] [place] [address] Performed By: #### A LLBG ####[facility] LABCLIA [id number] [place] [address] [place] Glucose [Mass/Vol] 143 mg/dL High 60-105 [facility] Comment on above: Order Comment: Speci men Type: ARTERIAL BLOOD SPECIMENOrdering Facility: [facility] Address: [address] [place] [address] Performed By: #### A LLBG ####[facility] LABCLIA [id number] [place] [address] [place] HCO3 (Bld) [Moles/Vol] 22 mmol/L Normal 22-26 [facility] Comment on above: Order Comment: Speci men Type: ARTERIAL BLOOD SPECIMENOrdering Facility: [facility] Address: [address] [place] [address] Performed By: #### A LLBG ####[facility] LABCLIA [id number] [place] [address] [place] Hematocrit (Bld) [Volume fraction] 35.5 % Low 39.0-51.0 [facility] Comment on above: Order Comment: Speci men Type: ARTERIAL BLOOD SPECIMENOrdering Facility: [facility] Address: [address] [place] [address] Performed By: #### A LLBG ####[facility] LABCLIA [id number] [place] [address] [place] Hemoglobin (Bld) [Mass/Vol] 11.5 g/dL Low 13.0-17.0 [facility] Comment on above: Order Comment: Speci men Type: ARTERIAL BLOOD SPECIMENOrdering Facility: [facility] Address: [address] [place] [address] Performed By: #### A LLBG ####[facility] LABCLIA [id number] [place] [address] [place] Lactate [Moles/Vol] 4.8 mmol/L High 0.5-2.2 [facility] Comment on above: Order Comment: Speci men Type: ARTERIAL BLOOD SPECIMENOrdering Facility: [facility] Address: [address] [place] [address] Performed By: #### A LLBG ####[facility] LABCLIA [id number] [place] [address] [place] Methemoglobin (Bld) [Mass fraction] 1.8 % High 0.0-1.5 [facility] Comment on above: Order Comment: Speci men Type: ARTERIAL BLOOD SPECIMENOrdering Facility: [facility] Address: [address] [place] [address] Performed By: #### A LLBG ####[facility] LABCLIA [id number] [place] [address] [place] Oxygen (Bld) [Partial pressure] 101 mm Hg High 85-95 [facility] Comment on above: Order Comment: Speci men Type: ARTERIAL BLOOD SPECIMENOrdering Facility: [facility] Address: [address] [place] [address] Performed By: #### A LLBG ####[facility] LABCLIA [id number] [place] [address] [place] Oxygen adjusted to patient's actual temperature (Bld) [Partial pressure] 103 mmHg High 85-95 [facility] Comment on above: Order Comment: Speci men Type: ARTERIAL BLOOD SPECIMENOrdering Facility: [facility] Address: [address] [place] [address] Performed By: #### A LLBG ####[facility] LABCLIA [id number] [place] [address] [place] Oxyhemoglobin (BldA) [Mass fraction] 95 % Normal 95-98 [facility] Comment on above: Order Comment: Speci men Type: ARTERIAL BLOOD SPECIMENOrdering Facility: [facility] Address: [address] [place] [address] Performed By: #### A LLBG ####[facility] LABCLIA [id number] [place] [address] [place] pH (Bld) 7.40 [pH] Normal 7.35-7.45 [facility] Comment on above: Order Comment: Speci men Type: ARTERIAL BLOOD SPECIMENOrdering Facility: [facility] Address: [address] [place] [address] Performed By: #### A LLBG ####[facility] LABCLIA [id number] [place] [address] [place] pH adjusted to patient's actual temperature (Bld) 7.40 Normal 7.35-7.45 [facility] Comment on above: Order Comment: Speci men Type: ARTERIAL BLOOD SPECIMENOrdering Facility: [facility] Address: [address] [place], [place] [address] Performed By: #### A LLBG ####[facility] LABCLIA [id number] [place] [address] [place] PO2 / FIO2 RATIO 337 mmHg Normal >300 [facility] Comment on above: Order Comment: Speci men Type: ARTERIAL BLOOD SPECIMENOrdering Facility: [facility] Address: [address] [place] [address] Performed By: #### A LLBG ####[facility] LABCLIA [id number] [place] [address] [place] Base deficit (BldA) [Moles/Vol] -1 mmol/L Normal -2-0 [facility] Comment on above: Order Comment: Speci men Type: ARTERIAL BLOOD SPECIMENOrdering Facility: [facility] Address: [address] [place] [address] Performed By: #### A LLBG ####[facility] LABCLIA [id number] [place] [address] [place] Body temperature 99.68 [degF] Normal [facility] Comment on above: Order Comment: Speci men Type: ARTERIAL BLOOD SPECIMENOrdering Facility: [facility] Address: [address] [place] [address] Performed By: #### A LLBG ####[facility] LABCLIA [id number] [place] [address] [place] Order Comment: Speci men Type: VENOUS BLOOD SPECIMENOrdering Facility: [facility] Address: [address] [place] [address] Performed By: #### 2 4344-4 ####[facility] LABCLIA [id number] [place] [address] [place] Calcium.ionized (Bld) [Mass/Vol] 1.19 mmol/L Normal 1.08-1.30 [facility] Comment on above: Order Comment: Speci men Type: ARTERIAL BLOOD SPECIMENOrdering Facility: [facility] Address: [address] [place] [address] Performed By: #### A LLBG ####[facility] LABIA [id number] [place] [address] [place] Calcium.ionized adjusted to pH 7.4 (BldA) [Moles/Vol] 1.20 mmol/L Normal 1.08-1.30 [facility] Comment on above: Order Comment: Speci men Type: ARTERIAL BLOOD SPECIMENOrdering Facility: [facility] Address: [address] [place] [address] Performed By: #### A LLBG ####[facility] LABIA [id number] [place] [address] [place] Carboxyhemoglobin (BldA) [Mass fraction] 1.2 % Normal 0.0-2.0 [facility] Comment on above: Order Comment: Speci men Type: ARTERIAL BLOOD SPECIMENOrdering Facility: [facility] Address: [address] [place] [address] Result Comment: Carb oxyhemoglobin Reference Range for Smokers: 2.0-8.0% Performed By: #### A LLBG ####[facility] [id number] [place] [address] [place] CO2 (Bld) [Partial pressure] 37 mm Hg Normal 36-46 [facility] Comment on above: Order Comment: Speci men Type: ARTERIAL BLOOD SPECIMENOrdering Facility: [facility] Address: [address] [place] [address] Performed By: #### A LLBG ####[facility] LABIA [id number] [place] [address] [place] CO2 adjusted to patient's actual temperature (Bld) [Partial pressure] 38 mmHg Normal 36-46 [facility] Comment on above: Order Comment: Speci men Type: ARTERIAL BLOOD SPECIMENOrdering Facility: [facility] Address: [address] [place] [address] Performed By: #### A LLBG ####[facility] LABIA [id number] [place] [address] [place] FIO2 30 % Normal [facility] Comment on above: Order Comment: Speci men Type: ARTERIAL BLOOD SPECIMENOrdering Facility: [facility] Address: [address] [place] [address] Performed By: #### A LLBG ####[facility] LABCLIA [id number] [place] [address] [place] Order Comment: Speci men Type: VENOUS BLOOD SPECIMENOrdering Facility: [facility] Address: [address] [place] [address] Performed By: #### 2 4344-4 ####[facility] LABCLIA [id number] [place] [address] [place] Glucose [Mass/Vol] 137 mg/dL High 60-105 [facility] Comment on above: Order Comment: Speci men Type: ARTERIAL BLOOD SPECIMENOrdering Facility: [facility] Address: [address] [place] [address] Performed By: #### A LLBG ####[facility] LABCLIA [id number] [place] [address] [place] HCO3 (Bld) [Moles/Vol] 23 mmol/L Normal 22-26 [facility] Comment on above: Order Comment: Speci men Type: ARTERIAL BLOOD SPECIMENOrdering Facility: [facility] Address: [address] [place] [address] Performed By: #### A LLBG ####[facility] LABCLIA [id number] [place] [address] [place] Hematocrit (Bld) [Volume fraction] 36.9 % Low 39.0-51.0 [facility] Comment on above: Order Comment: Speci men Type: ARTERIAL BLOOD SPECIMENOrdering Facility: [facility] Address: [address] [place] [address] Performed By: #### A LLBG ####[facility] LABCLIA [id number] [place] [address] [place] Hemoglobin (Bld) [Mass/Vol] 12.0 g/dL Low 13.0-17.0 [facility] Comment on above: Order Comment: Speci men Type: ARTERIAL BLOOD SPECIMENOrdering Facility: [facility] Address: [address] [place] [address] Performed By: #### A LLBG ####[facility] LABCLIA [id number] [place] [address] [place] Lactate [Moles/Vol] 4.6 mmol/L High 0.5-2.2 [facility] Comment on above: Order Comment: Speci men Type: ARTERIAL BLOOD SPECIMENOrdering Facility: [facility] Address: [address] [place] [address] Performed By: #### A LLBG ####[facility] LABCLIA [id number] [place] [address] [place] Methemoglobin (Bld) [Mass fraction] 1.6 % High 0.0-1.5 [facility] Comment on above: Order Comment: Speci men Type: ARTERIAL BLOOD SPECIMENOrdering Facility: [facility] Address: [address] [place] [address] Performed By: #### A LLBG ####[facility] LABCLIA [id number] [place] [address] [place] O2 THERAPY VENT=Ventilator Normal [facility] Comment on above: Order Comment: Speci men Type: ARTERIAL BLOOD SPECIMENOrdering Facility: [facility] Address: [address] [place] [address] Performed By: #### A LLBG ####[facility] LABCLIA [id number] [place] [address] [place] Order Comment: Speci men Type: VENOUS BLOOD SPECIMENOrdering Facility: [facility] Address: [address] [place] [address] Performed By: #### 2 4344-4 ####[facility] LABCLIA [id number] [address] [address] [place] Oxygen (Bld) [Partial pressure] 123 mm Hg High 85-95 [facility] Comment on above: Order Comment: Speci men Type: ARTERIAL BLOOD SPECIMENOrdering Facility: [facility] Address: [address] [id number] Performed By: #### A LLBG ####[facility] LABCLIA [id number] [address] [address] [place] Oxygen adjusted to patient's actual temperature (Bld) [Partial pressure] 127 mmHg High 85-95 [facility] Comment on above: Order Comment: Speci men Type: ARTERIAL BLOOD SPECIMENOrdering Facility: [facility] Address: [address] [place] [address] Performed By: #### A LLBG ####[facility] LABCLIA [id number] [place] [address] [place] Oxyhemoglobin (BldA) [Mass fraction] 96 % Normal 95-98 [facility] Comment on above: Order Comment: Speci men Type: ARTERIAL BLOOD SPECIMENOrdering Facility: [facility] Address: [address] [place] [address] Performed By: #### A LLBG ####[facility] LABCLIA [id number] [place] [id number] [place] PEEP/CPAP 8 cmH2O Normal [facility] Comment on above: Order Comment: Speci men Type: ARTERIAL BLOOD SPECIMENOrdering Facility: [facility] Address: [address] [id number] Performed By: #### A LLBG ####[facility] LABCLIA [id number] [place] [id number] [place] Order Comment: Speci men Type: VENOUS BLOOD SPECIMENOrdering Facility: [facility] Address: [address] [id number] Performed By: #### 2 4344-4 ####[facility] LABCLIA [id number] [place] [address] [place] pH (Bld) 7.41 [pH] Normal 7.35-7.45 [facility] Comment on above: Order Comment: Speci men Type: ARTERIAL BLOOD SPECIMENOrdering Facility: [facility] Address: [address] [place] [address] Performed By: #### A LLBG ####[facility] LABCLIA [id number] [place] [address] [place] pH adjusted to patient's actual temperature (Bld) 7.40 Normal 7.35-7.45 [facility] Comment on above: Order Comment: Speci men Type: ARTERIAL BLOOD SPECIMENOrdering Facility: [facility] Address: [address] [place] [address] Performed By: #### A LLBG ####[facility] LABCLIA [id number] [place] [address] [place] PO2 / FIO2 RATIO 410 mmHg Normal >300 [facility] Comment on above: Order Comment: Speci men Type: ARTERIAL BLOOD SPECIMENOrdering Facility: [facility] Address: [address] [place] [address] Performed By: #### A LLBG ####[facility] LABCLIA [id number] [place] [address] [place] Potassium [Moles/Vol] 4.7 mmol/L Normal 3.5-5.0 [facility] Comment on above: Order Comment: Speci men Type: ARTERIAL BLOOD SPECIMENOrdering Facility: [facility] Address: [address] [place] [address] Performed By: #### A LLBG ####[facility] LABCLIA [id number] [place] [address] [place] SET VENTILATOR RESPIRATORY RATE (BPM) 24 BPM Normal [facility] Comment on above: Order Comment: Speci men Type: ARTERIAL BLOOD SPECIMENOrdering Facility: [facility] Address: [address] [place] [address] Performed By: #### A LLBG ####[facility] LABCLIA [id number] [place] [address] [place] Order Comment: Speci men Type: VENOUS BLOOD SPECIMENOrdering Facility: [facility] Address: [address] [place] [address] Performed By: #### 2 4344-4 ####[facility] LABCLIA [id number] [place] [address] [place] Base deficit (BldA) [Moles/Vol] -1 mmol/L Normal -2-0 [facility] Comment on above: Order Comment: Speci men Type: ARTERIAL BLOOD SPECIMENOrdering Facility: [facility] Address: [address] [place] [address] Performed By: #### A LLBG ####[facility] LABCLIA [id number] [place] [address] [place] Body temperature 100.94 [degF] Normal [facility] Comment on above: Order Comment: Speci men Type: ARTERIAL BLOOD SPECIMENOrdering Facility: [facility] Address: [address] [place] [address] Performed By: #### A LLBG ####[facility] LABCLIA [id number] [place] [address] [place] Order Comment: Speci men Type: VENOUS BLOOD SPECIMENOrdering Facility: [facility] Address: [address] [place] [address] Performed By: #### 2 4344-4 ####[facility] LABCLIA [id number] [place] [address] [place] Calcium.ionized (Bld) [Mass/Vol] 1.22 mmol/L Normal 1.08-1.30 [facility] Comment on above: Order Comment: Speci men Type: ARTERIAL BLOOD SPECIMENOrdering Facility: [facility] Address: [address] [place] [address] Performed By: #### A LLBG ####[facility] LABCLIA [id number] [place] [address] [place] Calcium.ionized adjusted to pH 7.4 (BldA) [Moles/Vol] 1.21 mmol/L Normal 1.08-1.30 [facility] Comment on above: Order Comment: Speci men Type: ARTERIAL BLOOD SPECIMENOrdering Facility: [facility] Address: [address] [place] [address] Performed By: #### A LLBG ####[facility] LABCLIA [id number] [place] [address] [place] Carboxyhemoglobin (BldA) [Mass fraction] 1.5 % Normal 0.0-2.0 [facility] Comment on above: Order Comment: Speci men Type: ARTERIAL BLOOD SPECIMENOrdering Facility: [facility] Address: [address] [place] [address] Result Comment: Carb oxyhemoglobin Reference Range for Smokers: 2.0-8.0% Performed By: #### A LLBG ####[facility] LABCLIA [id number] [place] [address] [place] CO2 (Bld) [Partial pressure] 41 mm Hg Normal 36-46 [facility] Comment on above: Order Comment: Speci men Type: ARTERIAL BLOOD SPECIMENOrdering Facility: [facility] Address: [address] [place] [address] Performed By: #### A LLBG ####[facility] LABCLIA [id number] [place] [address] [place] CO2 adjusted to patient's actual temperature (Bld) [Partial pressure] 43 mmHg Normal 36-46 [facility] Comment on above: Order Comment: Speci men Type: ARTERIAL BLOOD SPECIMENOrdering Facility: [facility] Address: [address] [place] [address] Performed By: #### A LLBG ####[facility] LABCLIA [id number] [place] [address] [place] FIO2 30 % Normal [facility] Comment on above: Order Comment: Speci men Type: ARTERIAL BLOOD SPECIMENOrdering Facility: [facility] Address: [address] [place] [address] Performed By: #### A LLBG ####[facility] LABCLIA [id number] [place] [address] [place] Order Comment: Speci men Type: VENOUS BLOOD SPECIMENOrdering Facility: [facility] Address: [address] [place] [address] Performed By: #### 2 4344-4 ####[facility] LABCLIA [id number] [place] [address] [place] Glucose [Mass/Vol] 139 mg/dL High 60-105 [facility] Comment on above: Order Comment: Speci men Type: ARTERIAL BLOOD SPECIMENOrdering Facility: [facility] Address: [address] [place] [address] Performed By: #### A LLBG ####[facility] LABCLIA [id number] [place] [address] [place] HCO3 (Bld) [Moles/Vol] 24 mmol/L Normal 22-26 [facility] Comment on above: Order Comment: Speci men Type: ARTERIAL BLOOD SPECIMENOrdering Facility: [facility] Address: [address] [place] [address] Performed By: #### A LLBG ####[facility] LABCLIA [id number] [place] [address] [place] Hematocrit (Bld) [Volume fraction] 37.1 % Low 39.0-51.0 [facility] Comment on above: Order Comment: Speci men Type: ARTERIAL BLOOD SPECIMENOrdering Facility: [facility] Address: [address] [place] [address] Performed By: #### A LLBG ####[facility] LABCLIA [id number] [place] [address] [place] Hemoglobin (Bld) [Mass/Vol] 12.1 g/dL Low 13.0-17.0 [facility] Comment on above: Order Comment: Speci men Type: ARTERIAL BLOOD SPECIMENOrdering Facility: [facility] Address: [address] [place] [address] Performed By: #### A LLBG ####[facility] LABCLIA [id number] [place] [address] [place] Lactate [Moles/Vol] 4.2 mmol/L High 0.5-2.2 [facility] Comment on above: Order Comment: Speci men Type: ARTERIAL BLOOD SPECIMENOrdering Facility: [facility] Address: [address] [place] [address] Performed By: #### A LLBG ####[facility] LABCLIA [id number] [place] [address] [place] Order Comment: Speci men Type: VENOUS BLOOD SPECIMENOrdering Facility: [facility] Address: [address] [place] [address] Performed By: #### 2 4344-4 ####[facility] LABCLIA [id number] [place] [address] [place] Methemoglobin (Bld) [Mass fraction] 0.9 % Normal 0.0-1.5 [facility] Comment on above: Order Comment: Speci men Type: ARTERIAL BLOOD SPECIMENOrdering Facility: [facility] Address: [address] [place] [address] Performed By: #### A LLBG ####[facility] LABCLIA [id number] [place] [address] [place] O2 THERAPY VENT=Ventilator Normal [facility] Comment on above: Order Comment: Speci men Type: ARTERIAL BLOOD SPECIMENOrdering Facility: [facility] Address: [address] [place] [address] Performed By: #### A LLBG ####[facility] LABCLIA [id number] [place] [address] [place] Order Comment: Speci men Type: VENOUS BLOOD SPECIMENOrdering Facility: [facility] Address: [address] [place] [address] Performed By: #### 2 4344-4 ####[facility] LABCLIA [id number] [place] [address] [place] Oxygen (Bld) [Partial pressure] 123 mm Hg High 85-95 [facility] Comment on above: Order Comment: Speci men Type: ARTERIAL BLOOD SPECIMENOrdering Facility: [facility] Address: [address] [place] [address] Performed By: #### A LLBG ####[facility] LABCLIA [id number] [place] [address] [place] Oxygen adjusted to patient's actual temperature (Bld) [Partial pressure] 131 mmHg High 85-95 [facility] Comment on above: Order Comment: Speci men Type: ARTERIAL BLOOD SPECIMENOrdering Facility: [facility] Address: [address] [place], [place] [address] Performed By: #### A LLBG ####[facility] LABCLIA [id number] [place] [id number] [place] Oxyhemoglobin (BldA) [Mass fraction] 97 % Normal 95-98 [facility] Comment on above: Order Comment: Speci men Type: ARTERIAL BLOOD SPECIMENOrdering Facility: [facility] Address: [address] [place], [place] [id number] Performed By: #### A LLBG ####[facility] LABCLIA [id number] [place] [address] [place] PEEP/CPAP 8 cmH2O Normal [facility] Comment on above: Order Comment: Speci men Type: ARTERIAL BLOOD SPECIMENOrdering Facility: [facility] Address: [address] [place] [address] Performed By: #### A LLBG ####[facility] LABCLIA [id number] [place] [address] [place] Order Comment: Speci men Type: VENOUS BLOOD SPECIMENOrdering Facility: [facility] Address: [address] [place] [address] Performed By: #### 2 4344-4 ####[facility] LABCLIA [id number] [place] [address] [place] pH (Bld) 7.39 [pH] Normal 7.35-7.45 [facility] Comment on above: Order Comment: Speci men Type: ARTERIAL BLOOD SPECIMENOrdering Facility: [facility] Address: [address] [place] [address] Performed By: #### A LLBG ####[facility] LABCLIA [id number] [address] [place] pH adjusted to patient's actual temperature (Bld) 7.37 Normal 7.35-7.45 [facility] Comment on above: Order Comment: Speci men Type: ARTERIAL BLOOD SPECIMENOrdering Facility: [facility] Address: [address] [place] [address] Performed By: #### A LLBG ####[facility] LABCLIA [id number] [place] [address] [place] PO2 / FIO2 RATIO 410 mmHg Normal >300 [facility] Comment on above: Order Comment: Speci men Type: ARTERIAL BLOOD SPECIMENOrdering Facility: [facility] Address: [address] [place] [address] Performed By: #### A LLBG ####[facility] LABCLIA [id number] [place] [address] [place] Potassium [Moles/Vol] 4.9 mmol/L Normal 3.5-5.0 [facility] Comment on above: Order Comment: Speci men Type: ARTERIAL BLOOD SPECIMENOrdering Facility: [facility] Address: [address] [place] [address] Performed By: #### A LLBG ####[facility] LABCLIA [id number] [place] [address] [place] SET VENTILATOR RESPIRATORY RATE (BPM) 24 BPM Normal [facility] Comment on above: Order Comment: Speci men Type: ARTERIAL BLOOD SPECIMENOrdering Facility: [facility] Address: [address] [place] [address] Performed By: #### A LLBG ####[facility] LABCLIA [id number] [place] [address] [place] Sodium [Moles/Vol] 138 mmol/L Normal 136-144 [facility] Comment on above: Order Comment: Speci men Type: ARTERIAL BLOOD SPECIMENOrdering Facility: [facility] Address: [address] [place] [address] Performed By: #### A LLBG ####[facility] LABCLIA [id number] [place] [address] [place] CBC panel Auto (Bld)on 01-23 Erythrocyte distribution width (RBC) [Ratio] 15.2 % High 11.5-15.0 [facility] Comment on above: Order Comment: Speci men Type: BLOOD SPECIMENOrdering Facility: [facility] Address: [address] [place] [address] Performed By: #### 5 8410-2 ####[facility] LABCLIA [id number] [place] [address] [place] Hematocrit (Bld) [Volume fraction] 36.5 % Low 39.0-51.0 [facility] Comment on above: Order Comment: Speci men Type: BLOOD SPECIMENOrdering Facility: [facility] Address: [address] [place] [address] Performed By: #### 5 8410-2 ####[facility] LABIA [id number] [place] [address] [place] Hemoglobin (Bld) [Mass/Vol] 11.7 g/dL Low 13.0-17.0 [facility] Comment on above: Order Comment: Speci men Type: BLOOD SPECIMENOrdering Facility: [facility] Address: [address] [place] [address] Performed By: #### 5 8410-2 ####[facility] LABIA [id number] [place] [address] [place] MCH (RBC) [Entitic mass] 27.5 pg Normal 26.0-34.0 [facility] Comment on above: Order Comment: Speci men Type: BLOOD SPECIMENOrdering Facility: [facility] Address: [address] [place] [address] Performed By: #### 5 8410-2 ####[facility] LABIA [id number] [place] [address] [place] MCHC (RBC) [Mass/Vol] 32.1 g/dL Normal 30.5-36.0 [facility] Comment on above: Order Comment: Speci men Type: BLOOD SPECIMENOrdering Facility: [facility] Address: [address] [place] [address] Performed By: #### 5 8410-2 ####[facility] LABIA [id number] [place] [address] [place] MCV (RBC) [Entitic vol] 85.9 fL Normal 80.0-100.0 [facility] Comment on above: Order Comment: Speci men Type: BLOOD SPECIMENOrdering Facility: [facility] Address: [address] [place] [address] Performed By: #### 5 8410-2 ####[facility] LABCLIA [id number] [address] [address] [place] Platelet mean volume (Bld) [Entitic vol] 10.7 fL Normal 9.0-12.7 [facility] Comment on above: Order Comment: Speci men Type: BLOOD SPECIMENOrdering Facility: [facility] Address: [address] [place] [address] Performed By: #### 5 8410-2 ####[facility] LABIA [id number] [place] [address] [place] Platelets (Bld) [#/Vol] 152 10*3/uL Normal 150-400 [facility] Comment on above: Order Comment: Speci men Type: BLOOD SPECIMENOrdering Facility: [facility] Address: [address] [place] [address] Performed By: #### 5 8410-2 ####[facility] LABIA [id number] [place] [address] [place] RBC (Bld) [#/Vol] 4.25 10*6/uL Normal 4.20-6.00 [facility] Comment on above: Order Comment: Speci men Type: BLOOD SPECIMENOrdering Facility: [facility] Address: [address] [place] [address] Performed By: #### 5 8410-2 ####[facility] LABIA [id number] [place] [address] [place] WBC (Bld) [#/Vol] 16.30 10*3/uL High 3.70-11.00 [facility] Comment on above: Order Comment: Speci men Type: BLOOD SPECIMENOrdering Facility: [facility] Address: [address] [place] [address] Performed By: #### 5 8410-2 ####[facility] LABIA [id number] [place] [address] [place] CK SerPl-cCncon 01-24-2024 CK [Catalytic activity/Vol] 754 U/L High 51-298 [facility] Comment on above: Order Comment: Speci men Type: BLOOD SPECIMENOrdering Facility: [facility] Address: [address] [place] [address] Performed By: #### 2 157-6 ####[facility] LABCLIA [id number] [place] [address] [place] Comp Metab 2000 Pnl SerPlon 01-24-2024 Sodium [Moles/Vol] 138 mmol/L Normal 136-144 [facility] Comment on above: Order Comment: Speci men Type: BLOOD SPECIMENOrdering Facility: [facility] Address: [address] [place] [address] Performed By: #### 2 4323-8 ####[facility] LABCLIA [id number] [place] [address] [place] Order Comment: Speci men Type: VENOUS BLOOD SPECIMENOrdering Facility: [facility] Address: [address] [place] [address] Performed By: #### 2 4344-4 ####[facility] LABCLIA [id number] [address] [place] Order Comment: Speci men Type: ARTERIAL BLOOD SPECIMENOrdering Facility: [facility] Address: [address] [place] [address] Performed By: #### A LLBG ####[facility] LABCLIA [id number] [place] [address] [place] Potassium [Moles/Vol] 4.5 mmol/L Normal 3.5-5.0 [facility] Comment on above: Order Comment: Speci men Type: BLOOD SPECIMENOrdering Facility: [facility] Address: [address] [place] [address] Performed By: #### 2 4323-8 ####[facility] LABCLIA [id number] [place] [address] [place] Order Comment: Speci men Type: ARTERIAL BLOOD SPECIMENOrdering Facility: [facility] Address: [address] [place] [address] Performed By: #### A LLBG ####[facility] LABCLIA [id number] [place] [address] [place] Comprehensive metabolic 2000 panelon 01-24-2024 Albumin [Mass/Vol] 4.3 g/dL Normal 3.9-4.9 [facility] Comment on above: Order Comment: Speci men Type: BLOOD SPECIMENOrdering Facility: [facility] Address: [address] [place] [address] Performed By: #### 2 4323-8, HSTNT ####[facility] LABCLIA [id number] [place] [address] [place] ALP [Catalytic activity/Vol] 42 U/L Normal 38-113 [facility] Comment on above: Order Comment: Speci men Type: BLOOD SPECIMENOrdering Facility: [facility] Address: [address] [place] [address] Performed By: #### 2 4323-8, HSTNT ####[facility] LABCLIA [id number] [place] [address] [place] ALT [Catalytic activity/Vol] 23 U/L Normal 10-54 [facility] Comment on above: Order Comment: Speci men Type: BLOOD SPECIMENOrdering Facility: [facility] Address: [address] [place] [address] Performed By: #### 2 4323-8, HSTNT ####[facility] LABCLIA [id number] [place] [address] [place] Anion gap [Moles/Vol] 15 mmol/L Normal 8-15 [facility] Comment on above: Order Comment: Speci men Type: BLOOD SPECIMENOrdering Facility: [facility] Address: [address] [place] [address] Performed By: #### 2 4323-8, HSTNT ####[facility] LABCLIA [id number] [place] [address] [place] AST [Catalytic activity/Vol] 76 U/L High 14-40 [facility] Comment on above: Order Comment: Speci men Type: BLOOD SPECIMENOrdering Facility: [facility] Address: [address] [place] [address] Performed By: #### 2 4323-8, HSTNT ####[facility] LABIA [id number] [place] [address] [place] Bilirubin [Mass/Vol] 0.4 mg/dL Normal 0.2-1.3 [facility] Comment on above: Order Comment: Speci men Type: BLOOD SPECIMENOrdering Facility: [facility] Address: [address] [place] [address] Performed By: #### 2 4323-8, HSTNT ####[facility] LABCLIA [id number] [place] [address] [place] Calcium [Mass/Vol] 9.5 mg/dL Normal 8.5-10.2 [facility] Comment on above: Order Comment: Speci men Type: BLOOD SPECIMENOrdering Facility: [facility] Address: [address] [place] [address] Performed By: #### 2 4323-8, HSTNT ####[facility] LABIA [id number] [place] [address] [place] Chloride [Moles/Vol] 102 mmol/L Normal 98-107 [facility] Comment on above: Order Comment: Speci men Type: BLOOD SPECIMENOrdering Facility: [facility] Address: [address] [place] [address] Performed By: #### 2 4323-8, HSTNT ####[facility] LABCLIA [id number] [place] [address] [place] CO2 [Moles/Vol] 22 mmol/L Normal 22-30 [facility] Comment on above: Order Comment: Speci men Type: BLOOD SPECIMENOrdering Facility: [facility] Address: [address] [place] [address] Performed By: #### 2 4323-8, HSTNT ####[facility] LABIA [id number] [place] [address] [place] Creatinine [Mass/Vol] 1.37 mg/dL High 0.73-1.22 [facility] Comment on above: Order Comment: Speci men Type: BLOOD SPECIMENOrdering Facility: [facility] Address: [address] [place] [address] Performed By: #### 2 4323-8, HSTNT ####[facility] [id number] [place] [address] [place] Creatinine and Glomerular filtration rate.predicted panel (S/P/Bld) 57 mL/min/1.73m??? Low >=60 [facility] Comment on above: Order Comment: Speci men Type: BLOOD SPECIMENOrdering Facility: [facility] Address: [address] [place] [address] Result Comment: Talisha mated Glomerular Filtration Rate [...] GFR. Performed By: #### 2 4323-8, HSTNT ####[facility] LABCLIA [id number] [place] [address] [place] Potassium [Moles/Vol] 5.0 mmol/L Normal 3.7-5.1 [facility] Comment on above: Order Comment: Speci men Type: BLOOD SPECIMENOrdering Facility: [facility] Address: [address] [place], [place] [address] Performed By: #### 2 4323-8, HSTNT ####[facility] LABCLIA [id number] [address] [address] [place] Protein [Mass/Vol] 6.5 g/dL Normal 6.3-8.0 [facility] Comment on above: Order Comment: Speci men Type: BLOOD SPECIMENOrdering Facility: [facility] Address: [address] [place] [address] Performed By: #### 2 4323-8, HSTNT ####[facility] LABCLIA [id number] [address] [address] [place] Urea nitrogen [Mass/Vol] 28 mg/dL High 9-24 [facility] Comment on above: Order Comment: Speci men Type: BLOOD SPECIMENOrdering Facility: [facility] Address: [address] [place] [address] Performed By: #### 2 4323-8, HSTNT ####[facility] LABCLIA [id number] [address] [address] [place] ECHO LIMITEDon 01-24-2024 ECHO LIMITED Normal [facility] Gas + CO Pnl BldVon 01-24-20 Body temperature 98.6 [degF] Normal [facility] Comment on above: Order Comment: Speci men Type: VENOUS BLOOD SPECIMENOrdering Facility: [facility] Address: [address] [place], [place] [address] Performed By: #### 2 4344-4 ####[facility] LABCLIA [id number] [address] [address] [place] Order Comment: Speci men Type: ARTERIAL BLOOD SPECIMENOrdering Facility: [facility] Address: [address] [place] [address] Performed By: #### A LLBG ####[facility] LABCLIA [id number] [place] [address] [place] FIO2 30 % Normal [facility] Comment on above: Order Comment: Speci men Type: VENOUS BLOOD SPECIMENOrdering Facility: [facility] Address: [address] [place] [address] Performed By: #### 2 4344-4 ####[facility] LABCLIA [id number] [address] [place] Order Comment: Speci men Type: ARTERIAL BLOOD SPECIMENOrdering Facility: [facility] Address: [facility] [place] [address] Performed By: #### A LLBG ####[facility] LABCLIA [id number] [place] [address] [place] Hematocrit (Bld) [Volume fraction] 32.3 % Low 39.0-51.0 [facility] Comment on above: Order Comment: Speci men Type: VENOUS BLOOD SPECIMENOrdering Facility: [facility] Address: [address] [place] [address] Performed By: #### 2 4344-4 ####[facility] LABCLIA [id number] [address] [place] Order Comment: Speci men Type: ARTERIAL BLOOD SPECIMENOrdering Facility: [facility] Address: [address] [place] [address] Performed By: #### A LLBG ####[facility] LABCLIA [id number] [place] [address] [place] Hemoglobin (Bld) [Mass/Vol] 10.5 g/dL Low 13.0-17.0 [facility] Comment on above: Order Comment: Speci men Type: VENOUS BLOOD SPECIMENOrdering Facility: [facility] Address: [address] [place] [address] Performed By: #### 2 4344-4 ####[facility] LABCLIA [id number] [place] [id number] [place] Order Comment: Speci men Type: ARTERIAL BLOOD SPECIMENOrdering Facility: [facility] Address: [address] [place] [address] Performed By: #### A LLBG ####[facility] LABCLIA [id number] [place] [address] [place] O2 THERAPY VENT=Ventilator Normal [facility] Comment on above: Order Comment: Speci men Type: VENOUS BLOOD SPECIMENOrdering Facility: [facility] Address: [address] [place] [address] Performed By: #### 2 4344-4 ####[facility] LABCLIA [id number] [place] [address] [place] Order Comment: Speci men Type: ARTERIAL BLOOD SPECIMENOrdering Facility: [facility] Address: [address] [place] [address] Performed By: #### A LLBG ####[facility] LABCLIA [id number] [place] [address] [place] Body temperature 98.6 [degF] Normal [facility] Comment on above: Order Comment: Speci men Type: VENOUS BLOOD SPECIMENOrdering Facility: [facility] Address: [address] [place] [address] Performed By: #### 2 4344-4 ####[facility] LABCLIA [id number] [place] [id number] [place] Order Comment: Speci men Type: ARTERIAL BLOOD SPECIMENOrdering Facility: [facility] Address: [address] [place] [address] Performed By: #### A LLBG ####[facility] LABCLIA [id number] [place] [address] [place] FIO2 30 % Normal [facility] Comment on above: Order Comment: Speci men Type: VENOUS BLOOD SPECIMENOrdering Facility: [facility] Address: [address] [place] [address] Performed By: #### 2 4344-4 ####[facility] LABCLIA [id number] [address] [address] [place] Order Comment: Speci men Type: ARTERIAL BLOOD SPECIMENOrdering Facility: [facility] Address: [address] [place] [phone] Performed By: #### A LLBG ####[facility] LABCLIA [id number] [place] [id number] [place] O2 THERAPY VENT=Ventilator Normal [facility] Comment on above: Order Comment: Speci men Type: VENOUS BLOOD SPECIMENOrdering Facility: [facility] Address: [address] [place], [place] [address] Performed By: #### 2 4344-4 ####[facility] LABCLIA [id number] [address] [address] [place] Order Comment: Speci men Type: ARTERIAL BLOOD SPECIMENOrdering Facility: [facility] Address: [address] [place] [phone] Performed By: #### A LLBG ####[facility] LABCLIA [id number] [address] [address] [place] Potassium [Moles/Vol] 3.9 mmol/L Normal 3.5-5.0 [facility] Comment on above: Order Comment: Speci men Type: VENOUS BLOOD SPECIMENOrdering Facility: [facility] Address: [address] [place] [id number] Performed By: #### 2 4344-4 ####[facility] LABCLIA [id number] [place] [id number] [place] Order Comment: Speci men Type: ARTERIAL BLOOD SPECIMENOrdering Facility: [facility] Address: [address] [place] [phone] Performed By: #### A LLBG ####[facility] LABCLIA [id number] [address] [address] [place] Sodium [Moles/Vol] 139 mmol/L Normal 136-144 [facility] Comment on above: Order Comment: Speci men Type: VENOUS BLOOD SPECIMENOrdering Facility: [facility] Address: [address] [place] [phone] Performed By: #### 2 4344-4 ####[facility] LABCLIA [id number] [place] [id number] [place] Order Comment: Speci men Type: BLOOD SPECIMENOrdering Facility: [facility] Address: [address] [place] [phone] Performed By: #### 2 4323-8, HSTNT ####[facility] LABCLIA [id number] [place] [address] [place] Body temperature 98.6 [degF] Normal [facility] Comment on above: Order Comment: Speci men Type: VENOUS BLOOD SPECIMENOrdering Facility: [facility] Address: [address] [place] [phone] Performed By: #### 2 4344-4 ####[facility] LABCLIA [id number] [place] [address] [place] Order Comment: Speci men Type: ARTERIAL BLOOD SPECIMENOrdering Facility: [facility] Address: [address] [place] [phone] Performed By: #### A LLBG ####[facility] LABCLIA [id number] [place] [address] [place] FIO2 100 % Normal [facility] Comment on above: Order Comment: Speci men Type: VENOUS BLOOD SPECIMENOrdering Facility: [facility] Address: [address] [place] [phone] Performed By: #### 2 4344-4 ####[facility] LABCLIA [id number] [address] [place] Order Comment: Speci men Type: ARTERIAL BLOOD SPECIMENOrdering Facility: [facility] Address: [address] [place] [address] Performed By: #### A LLBG ####[facility] LABCLIA [id number] [place] [address] [place] Methemoglobin (Bld) [Mass fraction] 0.6 % Normal 0.0-1.5 [facility] Comment on above: Order Comment: Speci men Type: VENOUS BLOOD SPECIMENOrdering Facility: [facility] Address: [address] [place] [address] Performed By: #### 2 4344-4 ####[facility] LABCLIA [id number] [address] [place] Order Comment: Speci men Type: ARTERIAL BLOOD SPECIMENOrdering Facility: [facility] Address: [address] [place] [address] Performed By: #### A LLBG ####[facility] LABCLIA [id number] [place] [address] [place] O2 THERAPY VENT=Ventilator Normal [facility] Comment on above: Order Comment: Speci men Type: VENOUS BLOOD SPECIMENOrdering Facility: [facility] Address: [address] [place] [address] Performed By: #### 2 4344-4 ####[facility] LABCLIA [id number] [place] [address] [place] Order Comment: Speci men Type: ARTERIAL BLOOD SPECIMENOrdering Facility: [facility] Address: [address] [place] [address] Performed By: #### A LLBG ####[facility] LABCLIA [id number] [place] [address] [place] Potassium [Moles/Vol] 4.1 mmol/L Normal 3.5-5.0 [facility] Comment on above: Order Comment: Speci men Type: VENOUS BLOOD SPECIMENOrdering Facility: [facility] Address: [address] [place] [address] Performed By: #### 2 4344-4 ####[facility] LABCLIA [id number] [address] [address] [place] Order Comment: Speci men Type: ARTERIAL BLOOD SPECIMENOrdering Facility: [facility] Address: [address] [place] [address] Performed By: #### A LLBG ####[facility] LABCLIA [id number] [address] [place] Body temperature 98.6 [degF] Normal [facility] Comment on above: Order Comment: Speci men Type: VENOUS BLOOD SPECIMENOrdering Facility: [facility] Address: [address] [place] [address] Performed By: #### 2 4344-4 ####[facility] LABCLIA [id number] [place] [id number] [place] Order Comment: Speci men Type: ARTERIAL BLOOD SPECIMENOrdering Facility: [facility] Address: [address] [place] [address] Performed By: #### A LLBG ####[facility] LABCLIA [id number] [address] [place] FIO2 30 % Normal [facility] Comment on above: Order Comment: Speci men Type: VENOUS BLOOD SPECIMENOrdering Facility: [facility] Address: [address] [place] [phone] Performed By: #### 2 4344-4 ####[facility] LABCLIA [id number] [place] [id number] [place] Order Comment: Speci men Type: ARTERIAL BLOOD SPECIMENOrdering Facility: [facility] Address: [address], [place] [address] Performed By: #### A LLBG ####[facility] LABCLIA [id number] [place] [id number] [place] O2 THERAPY VENT=Ventilator Normal [facility] Comment on above: Order Comment: Speci men Type: VENOUS BLOOD SPECIMENOrdering Facility: [facility] Address: [address] [place], [place] [address] Performed By: #### 2 4344-4 ####[facility] LABCLIA [id number] [place] [id number] [place] Order Comment: Speci men Type: ARTERIAL BLOOD SPECIMENOrdering Facility: [facility] Address: [address] [place] [address] Performed By: #### A LLBG ####[facility] LABCLIA [id number] [place] [address] [place] Body temperature 99.32 [degF] Normal [facility] Comment on above: Order Comment: Speci men Type: VENOUS BLOOD SPECIMENOrdering Facility: [facility] Address: [address] [place], [place] [address] Performed By: #### 2 4344-4 ####[facility] LABCLIA [id number] [place] [address] [place] Order Comment: Speci men Type: ARTERIAL BLOOD SPECIMENOrdering Facility: [facility] Address: [address] [place], [place] [address] Performed By: #### A LLBG ####[facility] LABCLIA [id number] [place] [id number] [place] Calcium.ionized (Bld) [Mass/Vol] 1.17 mmol/L Normal 1.08-1.30 [facility] Comment on above: Order Comment: Speci men Type: VENOUS BLOOD SPECIMENOrdering Facility: [facility] Address: [address] [place], [place] [address] Performed By: #### 2 4344-4 ####[facility] LABCLIA [id number] [place] [id number] [place] Order Comment: Speci men Type: ARTERIAL BLOOD SPECIMENOrdering Facility: [facility] Address: [address] [place] [address] Performed By: #### A LLBG ####[facility] LABCLIA [id number] [place] [address] [place] FIO2 30 % Normal [facility] Comment on above: Order Comment: Speci men Type: VENOUS BLOOD SPECIMENOrdering Facility: [facility] Address: [address] [place], [place] [address] Performed By: #### 2 4344-4 ####[facility] LABCLIA [id number] [place] [address] [place] Order Comment: Speci men Type: ARTERIAL BLOOD SPECIMENOrdering Facility: [facility] Address: [address] [place] [address] Performed By: #### A LLBG ####[facility] LABCLIA [id number] [place] [address] [place] O2 THERAPY VENT=Ventilator Normal [facility] Comment on above: Order Comment: Speci men Type: VENOUS BLOOD SPECIMENOrdering Facility: [facility] Address: [address] [place], [place] [address] Performed By: #### 2 4344-4 ####[facility] LABCLIA [id number] [place] [id number] [place] Order Comment: Speci men Type: ARTERIAL BLOOD SPECIMENOrdering Facility: [facility] Address: [address] [place] [address] Performed By: #### A LLBG ####[facility] LABCLIA [id number] [place] [id number] [place] PEEP/CPAP 8 cmH2O Normal [facility] Comment on above: Order Comment: Speci men Type: VENOUS BLOOD SPECIMENOrdering Facility: [facility] Address: [address] [place] [address] Performed By: #### 2 4344-4 ####[facility] LABCLIA [id number] [place] [address] [place] Order Comment: Speci men Type: ARTERIAL BLOOD SPECIMENOrdering Facility: [facility] Address: [address] [place] [address] Performed By: #### A LLBG ####[facility] LABCLIA [id number] [place] [address] [place] SET VENTILATOR RESPIRATORY RATE (BPM) 24 BPM Normal [facility] Comment on above: Order Comment: Speci men Type: VENOUS BLOOD SPECIMENOrdering Facility: [facility] Address: [address] [place] [address] Performed By: #### 2 4344-4 ####[facility] LABCLIA [id number] [place] [address] [place] Order Comment: Speci men Type: ARTERIAL BLOOD SPECIMENOrdering Facility: [facility] Address: [address] [place] [address] Performed By: #### A LLBG ####[facility] LABCLIA [id number] [place] [address] [place] Gas and Carbon monoxide pane l (BldV)on 01-24-2024 Base excess Calc (BldV) [Moles/Vol] 2 mmol/L Normal 0-2 [facility] Comment on above: Order Comment: Speci men Type: VENOUS BLOOD SPECIMENOrdering Facility: [facility] Address: [address] [place] [address] Performed By: #### 2 4344-4 ####[facility] LABCLIA [id number] [place] [address] [place] Calcium.ionized (Bld) [Mass/Vol] 1.23 mmol/L Normal 1.08-1.30 [facility] Comment on above: Order Comment: Speci men Type: VENOUS BLOOD SPECIMENOrdering Facility: [facility] Address: [address] [place] [address] Performed By: #### 2 4344-4 ####[facility] LABIA [id number] [place] [address] [place] Calcium.ionized adjusted to pH 7.4 (BldA) [Moles/Vol] 1.21 mmol/L Normal 1.08-1.30 [facility] Comment on above: Order Comment: Speci men Type: VENOUS BLOOD SPECIMENOrdering Facility: [facility] Address: [address] [place] [address] Performed By: #### 2 4344-4 ####[facility] LABIA [id number] [place] [address] [place] Carboxyhemoglobin (BldV) [Mass fraction] 1.5 % Normal 0.0-2.0 [facility] Comment on above: Order Comment: Speci men Type: VENOUS BLOOD SPECIMENOrdering Facility: [facility] Address: [address] [place] [address] Result Comment: Carb oxyhemoglobin Reference Range for Smokers: 2.0-8.0% Performed By: #### 2 4344-4 ####[facility] [id number] [place] [address] [place] CO2 (BldV) [Partial pressure] 48 mm[Hg] Normal 42-55 [facility] Comment on above: Order Comment: Speci men Type: VENOUS BLOOD SPECIMENOrdering Facility: [facility] Address: [address] [place] [address] Performed By: #### 2 4344-4 ####[facility] LABIA [id number] [place] [address] [place] Glucose [Mass/Vol] 131 mg/dL High 60-105 [facility] Comment on above: Order Comment: Speci men Type: VENOUS BLOOD SPECIMENOrdering Facility: [facility] Address: [address] [place] [address] Performed By: #### 2 4344-4 ####[facility] LABCLIA [id number] [place] [address] [place] HCO3 (Bld) [Moles/Vol] 27 mmol/L Normal 24-28 [facility] Comment on above: Order Comment: Speci men Type: VENOUS BLOOD SPECIMENOrdering Facility: [facility] Address: [address] [place] [address] Performed By: #### 2 4344-4 ####[facility] LABCLIA [id number] [place] [address] [place] Lactate [Moles/Vol] 1.4 mmol/L Normal 0.5-2.2 [facility] Comment on above: Order Comment: Speci men Type: VENOUS BLOOD SPECIMENOrdering Facility: [facility] Address: [address] [place] [address] Performed By: #### 2 4344-4 ####[facility] LABCLIA [id number] [place] [address] [place] Methemoglobin (Bld) [Mass fraction] 0.9 % Normal 0.0-1.5 [facility] Comment on above: Order Comment: Speci men Type: VENOUS BLOOD SPECIMENOrdering Facility: [facility] Address: [address] [place] [address] Performed By: #### 2 4344-4 ####[facility] LABCLIA [id number] [place] [address] [place] Oxygen (BldV) [Partial pressure] 44 mm[Hg] Normal 35-45 [facility] Comment on above: Order Comment: Speci men Type: VENOUS BLOOD SPECIMENOrdering Facility: [facility] Address: [address] [place] [address] Performed By: #### 2 4344-4 ####[facility] LABCLIA [id number] [place] [id number] [place] Oxygen saturation in Venous blood 77 % Normal 60-85 [facility] Comment on above: Order Comment: Speci men Type: VENOUS BLOOD SPECIMENOrdering Facility: [facility] Address: [address] [place], [place] [address] Performed By: #### 2 4344-4 ####[facility] LABCLIA [id number] [place] [address] [place] Oxyhemoglobin (BldV) [Mass fraction] 75 % Normal 60-85 [facility] Comment on above: Order Comment: Speci men Type: VENOUS BLOOD SPECIMENOrdering Facility: [facility] Address: [address] [place] [address] Performed By: #### 2 4344-4 ####[facility] LABIA [id number] [place] [address] [place] pH (BldV) 7.37 [pH] Normal 7.32-7.42 [facility] Comment on above: Order Comment: Speci men Type: VENOUS BLOOD SPECIMENOrdering Facility: [facility] Address: [address] [place] [address] Performed By: #### 2 4344-4 ####[facility] LABIA [id number] [place] [address] [place] Potassium [Moles/Vol] 4.2 mmol/L Normal 3.5-5.0 [facility] Comment on above: Order Comment: Speci men Type: VENOUS BLOOD SPECIMENOrdering Facility: [facility] Address: [address] [place], [place] [id number] Performed By: #### 2 4344-4 ####[facility] LABCLIA [id number] [place] [address] [place] Base excess Calc (BldV) [Moles/Vol] 3 mmol/L High 0-2 [facility] Comment on above: Order Comment: Speci men Type: VENOUS BLOOD SPECIMENOrdering Facility: [facility] Address: [address] [place] [address] Performed By: #### 2 4344-4 ####[facility] LABCLIA [id number] [place] [address] [place] Calcium.ionized (Bld) [Mass/Vol] 1.17 mmol/L Normal 1.08-1.30 [facility] Comment on above: Order Comment: Speci men Type: VENOUS BLOOD SPECIMENOrdering Facility: [facility] Address: [address] [place] [address] Performed By: #### 2 4344-4 ####[facility] LABIA [id number] [place] [address] [place] Calcium.ionized adjusted to pH 7.4 (BldA) [Moles/Vol] 1.19 mmol/L Normal 1.08-1.30 [facility] Comment on above: Order Comment: Speci men Type: VENOUS BLOOD SPECIMENOrdering Facility: [facility] Address: [address] [place] [address] Performed By: #### 2 4344-4 ####[facility] LABIA [id number] [place] [address] [place] Carboxyhemoglobin (BldV) [Mass fraction] 0.8 % Normal 0.0-2.0 [facility] Comment on above: Order Comment: Speci men Type: VENOUS BLOOD SPECIMENOrdering Facility: [facility] Address: [address] [place] [address] Result Comment: Carb oxyhemoglobin Reference Range for Smokers: 2.0-8.0% Performed By: #### 2 4344-4 ####[facility] LABIA [id number] [place] [address] [place] CO2 (BldV) [Partial pressure] 42 mm[Hg] Normal 42-55 [facility] Comment on above: Order Comment: Speci men Type: VENOUS BLOOD SPECIMENOrdering Facility: [facility] Address: [address] [place] [address] Performed By: #### 2 4344-4 ####[facility] LABIA [id number] [place] [address] [place] CO2 adjusted to patient's actual temperature (BldV) [Partial pressure] 41 mmHg Low 42-55 [facility] Comment on above: Order Comment: Speci men Type: VENOUS BLOOD SPECIMENOrdering Facility: [facility] Address: [address] [place] [address] Performed By: #### 2 4344-4 ####[facility] LABIA [id number] [place] [address] [place] Hemoglobin (Bld) [Mass/Vol] 10.6 g/dL Low 13.0-17.0 [facility] Comment on above: Order Comment: Speci men Type: VENOUS BLOOD SPECIMENOrdering Facility: [facility] Address: [address] [place] [address] Performed By: #### 2 4344-4 ####[facility] LABIA [id number] [place] [address] [place] Lactate [Moles/Vol] 2.0 mmol/L Normal 0.5-2.2 [facility] Comment on above: Order Comment: Speci men Type: VENOUS BLOOD SPECIMENOrdering Facility: [facility] Address: [address] [place] [address] Performed By: #### 2 4344-4 ####[facility] LABIA [id number] [place] [address] [place] Methemoglobin (Bld) [Mass fraction] 1.4 % Normal 0.0-1.5 [facility] Comment on above: Order Comment: Speci men Type: VENOUS BLOOD SPECIMENOrdering Facility: [facility] Address: [address] [place] [address] Performed By: #### 2 4344-4 ####[facility] LABCLIA [id number] [address] [address] [place] Oxygen (BldV) [Partial pressure] 46 mm[Hg] High 35-45 [facility] Comment on above: Order Comment: Speci men Type: VENOUS BLOOD SPECIMENOrdering Facility: [facility] Address: [address] [place], [place] [address] Performed By: #### 2 4344-4 ####[facility] LABCLIA [id number] [address] [address] [place] Oxygen adjusted to patient's actual temperature (BldV) [Partial pressure] 45 mmHg Normal 35-45 [facility] Comment on above: Order Comment: Speci men Type: VENOUS BLOOD SPECIMENOrdering Facility: [facility] Address: [address] [place], [place] [address] Performed By: #### 2 4344-4 ####[facility] LABCLIA [id number] [address] [address] [place] Oxygen saturation in Venous blood 82 % Normal 60-85 [facility] Comment on above: Order Comment: Speci men Type: VENOUS BLOOD SPECIMENOrdering Facility: [facility] Address: [address] [place], [place] [address] Performed By: #### 2 4344-4 ####[facility] LABCLIA [id number] [address] [address] [place] Oxyhemoglobin (BldV) [Mass fraction] 80 % Normal 60-85 [facility] Comment on above: Order Comment: Speci men Type: VENOUS BLOOD SPECIMENOrdering Facility: [facility] Address: [address] [place] [address] Performed By: #### 2 4344-4 ####[facility] LABCLIA [id number] [address] [address] [place] pH (BldV) 7.43 [pH] High 7.32-7.42 [facility] Comment on above: Order Comment: Speci men Type: VENOUS BLOOD SPECIMENOrdering Facility: [facility] Address: [address] [place] [address] Performed By: #### 2 4344-4 ####[facility] LABCLIA [id number] [place] [address] [place] pH adjusted to patient's actual temperature (BldV) 7.43 High 7.32-7.42 [facility] Comment on above: Order Comment: Speci men Type: VENOUS BLOOD SPECIMENOrdering Facility: [facility] Address: [address] [place] [address] Performed By: #### 2 4344-4 ####[facility] LABCLIA [id number] [place] [address] [place] Potassium [Moles/Vol] 4.0 mmol/L Normal 3.5-5.0 [facility] Comment on above: Order Comment: Speci men Type: VENOUS BLOOD SPECIMENOrdering Facility: [facility] Address: [address] [place] [address] Performed By: #### 2 4344-4 ####[facility] LABCLIA [id number] [place] [address] [place] Sodium [Moles/Vol] 136 mmol/L Normal 136-144 [facility] Comment on above: Order Comment: Speci men Type: VENOUS BLOOD SPECIMENOrdering Facility: [facility] Address: [address] [place] [address] Performed By: #### 2 4344-4 ####[facility] LABCLIA [id number] [place] [address] [place] Base excess Calc (BldV) [Moles/Vol] 3 mmol/L High 0-2 [facility] Comment on above: Order Comment: Speci men Type: VENOUS BLOOD SPECIMENOrdering Facility: [facility] Address: [address] [place] [address] Performed By: #### 2 4344-4 ####[facility] LABIA [id number] [place] [address] [place] Calcium.ionized (Bld) [Mass/Vol] 1.20 mmol/L Normal 1.08-1.30 [facility] Comment on above: Order Comment: Speci men Type: VENOUS BLOOD SPECIMENOrdering Facility: [facility] Address: [address] [place] [address] Performed By: #### 2 4344-4 ####[facility] LABIA [id number] [place] [address] [place] Calcium.ionized adjusted to pH 7.4 (BldA) [Moles/Vol] 1.22 mmol/L Normal 1.08-1.30 [facility] Comment on above: Order Comment: Speci men Type: VENOUS BLOOD SPECIMENOrdering Facility: [facility] Address: [address] [place] [address] Performed By: #### 2 4344-4 ####[facility] [id number] [place] [address] [place] Carboxyhemoglobin (BldV) [Mass fraction] 1.3 % Normal 0.0-2.0 [facility] Comment on above: Order Comment: Speci men Type: VENOUS BLOOD SPECIMENOrdering Facility: [facility] Address: [address] [place] [address] Result Comment: Carb oxyhemoglobin Reference Range for Smokers: 2.0-8.0% Performed By: #### 2 4344-4 ####[facility] [id number] [place] [address] [place] CO2 (BldV) [Partial pressure] 40 mm[Hg] Low 42-55 [facility] Comment on above: Order Comment: Speci men Type: VENOUS BLOOD SPECIMENOrdering Facility: [facility] Address: [address] [place] [address] Performed By: #### 2 4344-4 ####[facility] LABCLIA [id number] [place] [address] [place] CO2 adjusted to patient's actual temperature (BldV) [Partial pressure] 40 mmHg Low 42-55 [facility] Comment on above: Order Comment: Speci men Type: VENOUS BLOOD SPECIMENOrdering Facility: [facility] Address: [address] [place] [address] Performed By: #### 2 4344-4 ####[facility] LABCLIA [id number] [place] [address] [place] Glucose [Mass/Vol] 123 mg/dL High 60-105 [facility] Comment on above: Order Comment: Speci men Type: VENOUS BLOOD SPECIMENOrdering Facility: [facility] Address: [address] [place] [address] Performed By: #### 2 4344-4 ####[facility] LABCLIA [id number] [place] [address] [place] HCO3 (Bld) [Moles/Vol] 27 mmol/L Normal 24-28 [facility] Comment on above: Order Comment: Speci men Type: VENOUS BLOOD SPECIMENOrdering Facility: [facility] Address: [address] [place] [address] Performed By: #### 2 4344-4 ####[facility] LABCLIA [id number] [place] [address] [place] Hematocrit (Bld) [Volume fraction] 31.9 % Low 39.0-51.0 [facility] Comment on above: Order Comment: Speci men Type: VENOUS BLOOD SPECIMENOrdering Facility: [facility] Address: [address] [place] [address] Performed By: #### 2 4344-4 ####[facility] LABCLIA [id number] [place] [address] [place] Hemoglobin (Bld) [Mass/Vol] 10.3 g/dL Low 13.0-17.0 [facility] Comment on above: Order Comment: Speci men Type: VENOUS BLOOD SPECIMENOrdering Facility: [facility] Address: [address] [place] [address] Performed By: #### 2 4344-4 ####[facility] LABCLIA [id number] [address] [address] [place] Methemoglobin (Bld) [Mass fraction] 0.7 % Normal 0.0-1.5 [facility] Comment on above: Order Comment: Speci men Type: VENOUS BLOOD SPECIMENOrdering Facility: [facility] Address: [address] [place] [address] Performed By: #### 2 4344-4 ####[facility] LABCLIA [id number] [place] [address] [place] Oxygen (BldV) [Partial pressure] 42 mm[Hg] Normal 35-45 [facility] Comment on above: Order Comment: Speci men Type: VENOUS BLOOD SPECIMENOrdering Facility: [facility] Address: [address] [place] [address] Performed By: #### 2 4344-4 ####[facility] LABCLIA [id number] [place] [address] [place] Oxygen adjusted to patient's actual temperature (BldV) [Partial pressure] 41 mmHg Normal 35-45 [facility] Comment on above: Order Comment: Speci men Type: VENOUS BLOOD SPECIMENOrdering Facility: [facility] Address: [address] [place] [address] Performed By: #### 2 4344-4 ####[facility] LABCLIA [id number] [place] [id number] [place] Oxygen saturation in Venous blood 78 % Normal 60-85 [facility] Comment on above: Order Comment: Speci men Type: VENOUS BLOOD SPECIMENOrdering Facility: [facility] Address: [address] [place] [address] Performed By: #### 2 4344-4 ####[facility] LABCLIA [id number] [place] [address] [place] Oxyhemoglobin (BldV) [Mass fraction] 77 % Normal 60-85 [facility] Comment on above: Order Comment: Speci men Type: VENOUS BLOOD SPECIMENOrdering Facility: [facility] Address: [address] [place] [address] Performed By: #### 2 4344-4 ####[facility] LABIA [id number] [place] [address] [place] pH (BldV) 7.43 [pH] High 7.32-7.42 [facility] Comment on above: Order Comment: Speci men Type: VENOUS BLOOD SPECIMENOrdering Facility: [facility] Address: [address] [place] [address] Performed By: #### 2 4344-4 ####[facility] LABIA [id number] [place] [address] [place] pH adjusted to patient's actual temperature (BldV) 7.44 High 7.32-7.42 [facility] Comment on above: Order Comment: Speci men Type: VENOUS BLOOD SPECIMENOrdering Facility: [facility] Address: [address] [place] [address] Performed By: #### 2 4344-4 ####[facility] LABIA [id number] [place] [address] [place] Base excess Calc (BldV) [Moles/Vol] 1 mmol/L Normal 0-2 [facility] Comment on above: Order Comment: Speci men Type: VENOUS BLOOD SPECIMENOrdering Facility: [facility] Address: [address] [place] [address] Performed By: #### 2 4344-4 ####[facility] LABIA [id number] [place] [address] [place] Calcium.ionized (Bld) [Mass/Vol] 1.20 mmol/L Normal 1.08-1.30 [facility] Comment on above: Order Comment: Speci men Type: VENOUS BLOOD SPECIMENOrdering Facility: [facility] Address: [address] [place] [address] Performed By: #### 2 4344-4 ####[facility] LABCLIA [id number] [place] [address] [place] Calcium.ionized adjusted to pH 7.4 (BldA) [Moles/Vol] 1.21 mmol/L Normal 1.08-1.30 [facility] Comment on above: Order Comment: Speci men Type: VENOUS BLOOD SPECIMENOrdering Facility: [facility] Address: [address] [place] [address] Performed By: #### 2 4344-4 ####[facility] LABIA [id number] [place] [address] [place] Carboxyhemoglobin (BldV) [Mass fraction] 1.4 % Normal 0.0-2.0 [facility] Comment on above: Order Comment: Speci men Type: VENOUS BLOOD SPECIMENOrdering Facility: [facility] Address: [address] [place] [address] Result Comment: Carb oxyhemoglobin Reference Range for Smokers: 2.0-8.0% Performed By: #### 2 4344-4 ####[facility] LABIA [id number] [place] [address] [place] CO2 (BldV) [Partial pressure] 41 mm[Hg] Low 42-55 [facility] Comment on above: Order Comment: Speci men Type: VENOUS BLOOD SPECIMENOrdering Facility: [facility] Address: [address] [place] [address] Performed By: #### 2 4344-4 ####[facility] LABCLIA [id number] [place] [address] [place] Glucose [Mass/Vol] 124 mg/dL High 60-105 [facility] Comment on above: Order Comment: Speci men Type: VENOUS BLOOD SPECIMENOrdering Facility: [facility] Address: [address] [place] [address] Performed By: #### 2 4344-4 ####[facility] LABCLIA [id number] [place] [address] [place] HCO3 (Bld) [Moles/Vol] 25 mmol/L Normal 24-28 [facility] Comment on above: Order Comment: Speci men Type: VENOUS BLOOD SPECIMENOrdering Facility: [facility] Address: [address] [place] [address] Performed By: #### 2 4344-4 ####[facility] LABIA [id number] [place] [address] [place] Hematocrit (Bld) [Volume fraction] 32.9 % Low 39.0-51.0 [facility] Comment on above: Order Comment: Speci men Type: VENOUS BLOOD SPECIMENOrdering Facility: [facility] Address: [address] [place] [address] Performed By: #### 2 4344-4 ####[facility] LABIA [id number] [place] [address] [place] Hemoglobin (Bld) [Mass/Vol] 10.7 g/dL Low 13.0-17.0 [facility] Comment on above: Order Comment: Speci men Type: VENOUS BLOOD SPECIMENOrdering Facility: [facility] Address: [address] [place] [address] Performed By: #### 2 4344-4 ####[facility] LABIA [id number] [place] [address] [place] Lactate [Moles/Vol] 2.8 mmol/L High 0.5-2.2 [facility] Comment on above: Order Comment: Speci men Type: VENOUS BLOOD SPECIMENOrdering Facility: [facility] Address: [address] [place] [id number] Performed By: #### 2 4344-4 ####[facility] LABCLIA [id number] [address] [address] [place] Methemoglobin (Bld) [Mass fraction] 0.8 % Normal 0.0-1.5 [facility] Comment on above: Order Comment: Speci men Type: VENOUS BLOOD SPECIMENOrdering Facility: [facility] Address: [address] [place] [address] Performed By: #### 2 4344-4 ####[facility] LABCLIA [id number] [place] [address] [place] Oxygen (BldV) [Partial pressure] 52 mm[Hg] High 35-45 [facility] Comment on above: Order Comment: Speci men Type: VENOUS BLOOD SPECIMENOrdering Facility: [facility] Address: [address] [place] [address] Performed By: #### 2 4344-4 ####[facility] LABCLIA [id number] [place] [address] [place] Oxygen saturation in Venous blood 87 % High 60-85 [facility] Comment on above: Order Comment: Speci men Type: VENOUS BLOOD SPECIMENOrdering Facility: [facility] Address: [address] [place], [place] [address] Performed By: #### 2 4344-4 ####[facility] LABCLIA [id number] [place] [id number] [place] Oxyhemoglobin (BldV) [Mass fraction] 85 % Normal 60-85 [facility] Comment on above: Order Comment: Speci men Type: VENOUS BLOOD SPECIMENOrdering Facility: [facility] Address: [address] [place] [address] Performed By: #### 2 4344-4 ####[facility] LABCLIA [id number] [address] [address] [place] pH (BldV) 7.41 [pH] Normal 7.32-7.42 [facility] Comment on above: Order Comment: Speci men Type: VENOUS BLOOD SPECIMENOrdering Facility: [facility] Address: [address] [place] [address] Performed By: #### 2 4344-4 ####[facility] LABCLIA [id number] [place] [address] [place] Potassium [Moles/Vol] 3.9 mmol/L Normal 3.5-5.0 [facility] Comment on above: Order Comment: Speci men Type: VENOUS BLOOD SPECIMENOrdering Facility: [facility] Address: [address] [place] [address] Performed By: #### 2 4344-4 ####[facility] LABCLIA [id number] [place] [address] [place] Sodium [Moles/Vol] 139 mmol/L Normal 136-144 [facility] Comment on above: Order Comment: Speci men Type: VENOUS BLOOD SPECIMENOrdering Facility: [facility] Address: [address] [place] [address] Performed By: #### 2 4344-4 ####[facility] LABCLIA [id number] [place] [address] [place] Base excess Calc (BldV) [Moles/Vol] 1 mmol/L Normal 0-2 [facility] Comment on above: Order Comment: Speci men Type: VENOUS BLOOD SPECIMENOrdering Facility: [facility] Address: [address] [place] [address] Performed By: #### 2 4344-4 ####[facility] LABCLIA [id number] [place] [address] [place] Calcium.ionized (Bld) [Mass/Vol] 1.18 mmol/L Normal 1.08-1.30 [facility] Comment on above: Order Comment: Speci men Type: VENOUS BLOOD SPECIMENOrdering Facility: [facility] Address: [address] [place] [address] Performed By: #### 2 4344-4 ####[facility] LABIA [id number] [place] [address] [place] Calcium.ionized adjusted to pH 7.4 (BldA) [Moles/Vol] 1.19 mmol/L Normal 1.08-1.30 [facility] Comment on above: Order Comment: Speci men Type: VENOUS BLOOD SPECIMENOrdering Facility: [facility] Address: [address] [place] [address] Performed By: #### 2 4344-4 ####[facility] LABIA [id number] [place] [address] [place] Carboxyhemoglobin (BldV) [Mass fraction] 1.0 % Normal 0.0-2.0 [facility] Comment on above: Order Comment: Speci men Type: VENOUS BLOOD SPECIMENOrdering Facility: [facility] Address: [address] [place] [address] Result Comment: Carb oxyhemoglobin Reference Range for Smokers: 2.0-8.0% Performed By: #### 2 4344-4 ####[facility] LABIA [id number] [place] [address] [place] CO2 (BldV) [Partial pressure] 40 mm[Hg] Low 42-55 [facility] Comment on above: Order Comment: Speci men Type: VENOUS BLOOD SPECIMENOrdering Facility: [facility] Address: [address] [place] [address] Performed By: #### 2 4344-4 ####[facility] LABIA [id number] [place] [address] [place] Glucose [Mass/Vol] 147 mg/dL High 60-105 [facility] Comment on above: Order Comment: Speci men Type: VENOUS BLOOD SPECIMENOrdering Facility: [facility] Address: [address] [place] [address] Performed By: #### 2 4344-4 ####[facility] LABCLIA [id number] [place] [address] [place] HCO3 (Bld) [Moles/Vol] 25 mmol/L Normal 24-28 [facility] Comment on above: Order Comment: Speci men Type: VENOUS BLOOD SPECIMENOrdering Facility: [facility] Address: [address] [place] [address] Performed By: #### 2 4344-4 ####[facility] LABCLIA [id number] [place] [address] [place] Hematocrit (Bld) [Volume fraction] 32.8 % Low 39.0-51.0 [facility] Comment on above: Order Comment: Speci men Type: VENOUS BLOOD SPECIMENOrdering Facility: [facility] Address: [address] [place] [address] Performed By: #### 2 4344-4 ####[facility] LABIA [id number] [place] [address] [place] Hemoglobin (Bld) [Mass/Vol] 10.6 g/dL Low 13.0-17.0 [facility] Comment on above: Order Comment: Speci men Type: VENOUS BLOOD SPECIMENOrdering Facility: [facility] Address: [address] [place] [address] Performed By: #### 2 4344-4 ####[facility] LABIA [id number] [place] [address] [place] Lactate [Moles/Vol] 4.1 mmol/L High 0.5-2.2 [facility] Comment on above: Order Comment: Speci men Type: VENOUS BLOOD SPECIMENOrdering Facility: [facility] Address: [address] [place] [address] Performed By: #### 2 4344-4 ####[facility] LABIA [id number] [place] [address] [place] Methemoglobin (Bld) [Mass fraction] 0.7 % Normal 0.0-1.5 [facility] Comment on above: Order Comment: Speci men Type: VENOUS BLOOD SPECIMENOrdering Facility: [facility] Address: [address] [place] [address] Performed By: #### 2 4344-4 ####[facility] LABCLIA [id number] [place] [address] [place] Oxygen (BldV) [Partial pressure] 46 mm[Hg] High 35-45 [facility] Comment on above: Order Comment: Speci men Type: VENOUS BLOOD SPECIMENOrdering Facility: [facility] Address: [address] [place] [address] Performed By: #### 2 4344-4 ####[facility] LABCLIA [id number] [place] [address] [place] Oxygen saturation in Venous blood 81 % Normal 60-85 [facility] Comment on above: Order Comment: Speci men Type: VENOUS BLOOD SPECIMENOrdering Facility: [facility] Address: [address] [place] [address] Performed By: #### 2 4344-4 ####[facility] LABCLIA [id number] [place] [address] [place] Oxyhemoglobin (BldV) [Mass fraction] 80 % Normal 60-85 [facility] Comment on above: Order Comment: Speci men Type: VENOUS BLOOD SPECIMENOrdering Facility: [facility] Address: [address] [place], [place] [address] Performed By: #### 2 4344-4 ####[facility] LABCLIA [id number] [place] [id number] [place] pH (BldV) 7.41 [pH] Normal 7.32-7.42 [facility] Comment on above: Order Comment: Speci men Type: VENOUS BLOOD SPECIMENOrdering Facility: [facility] Address: [address] [place] [address] Performed By: #### 2 4344-4 ####[facility] LABIA [id number] [place] [address] [place] Base excess Calc (BldV) [Moles/Vol] 1 mmol/L Normal 0-2 [facility] Comment on above: Order Comment: Speci men Type: VENOUS BLOOD SPECIMENOrdering Facility: [facility] Address: [address] [place] [address] Performed By: #### 2 4344-4 ####[facility] LABIA [id number] [place] [address] [place] Calcium.ionized adjusted to pH 7.4 (BldA) [Moles/Vol] 1.19 mmol/L Normal 1.08-1.30 [facility] Comment on above: Order Comment: Speci men Type: VENOUS BLOOD SPECIMENOrdering Facility: [facility] Address: [address] [place] [address] Performed By: #### 2 4344-4 ####[facility] LABIA [id number] [place] [address] [place] Carboxyhemoglobin (BldV) [Mass fraction] 1.4 % Normal 0.0-2.0 [facility] Comment on above: Order Comment: Speci men Type: VENOUS BLOOD SPECIMENOrdering Facility: [facility] Address: [address] [place] [address] Result Comment: Carb oxyhemoglobin Reference Range for Smokers: 2.0-8.0% Performed By: #### 2 4344-4 ####[facility] LABIA [id number] [place] [address] [place] CO2 (BldV) [Partial pressure] 39 mm[Hg] Low 42-55 [facility] Comment on above: Order Comment: Speci men Type: VENOUS BLOOD SPECIMENOrdering Facility: [facility] Address: [address] [place] [address] Performed By: #### 2 4344-4 ####[facility] LABCLIA [id number] [place] [address] [place] HCO3 (Bld) [Moles/Vol] 25 mmol/L Normal 24-28 [facility] Comment on above: Order Comment: Speci men Type: VENOUS BLOOD SPECIMENOrdering Facility: [facility] Address: [address] [place] [address] Performed By: #### 2 4344-4 ####[facility] LABCLIA [id number] [place] [address] [place] Hematocrit (Bld) [Volume fraction] 34.1 % Low 39.0-51.0 [facility] Comment on above: Order Comment: Speci men Type: VENOUS BLOOD SPECIMENOrdering Facility: [facility] Address: [address] [place] [address] Performed By: #### 2 4344-4 ####[facility] LABIA [id number] [place] [address] [place] Hemoglobin (Bld) [Mass/Vol] 11.1 g/dL Low 13.0-17.0 [facility] Comment on above: Order Comment: Speci men Type: VENOUS BLOOD SPECIMENOrdering Facility: [facility] Address: [address] [place] [address] Performed By: #### 2 4344-4 ####[facility] LABIA [id number] [place] [address] [place] Lactate [Moles/Vol] 5.0 mmol/L High 0.5-2.2 [facility] Comment on above: Order Comment: Speci men Type: VENOUS BLOOD SPECIMENOrdering Facility: [facility] Address: [address] [place] [address] Performed By: #### 2 4344-4 ####[facility] LABIA [id number] [place] [id number] [address] [place] Methemoglobin (Bld) [Mass fraction] 0.9 % Normal 0.0-1.5 [facility] Comment on above: Order Comment: Speci men Type: VENOUS BLOOD SPECIMENOrdering Facility: [facility] Address: [address] [place] [address] Performed By: #### 2 4344-4 ####[facility] LABCLIA [id number] [place] [address] [place] Oxygen (BldV) [Partial pressure] 44 mm[Hg] Normal 35-45 [facility] Comment on above: Order Comment: Speci men Type: VENOUS BLOOD SPECIMENOrdering Facility: [facility] Address: [address] [place] [address] Performed By: #### 2 4344-4 ####[facility] LABCLIA [id number] [place] [address] [place] Oxygen saturation in Venous blood 79 % Normal 60-85 [facility] Comment on above: Order Comment: Speci men Type: VENOUS BLOOD SPECIMENOrdering Facility: [facility] Address: [address] [place] [address] Performed By: #### 2 4344-4 ####[facility] LABCLIA [id number] [place] [address] [place] Oxyhemoglobin (BldV) [Mass fraction] 77 % Normal 60-85 [facility] Comment on above: Order Comment: Speci men Type: VENOUS BLOOD SPECIMENOrdering Facility: [facility] Address: [address] [place], [place] [address] Performed By: #### 2 4344-4 ####[facility] LABCLIA [id number] [place] [address] [place] pH (BldV) 7.42 [pH] Normal 7.32-7.42 [facility] Comment on above: Order Comment: Speci men Type: VENOUS BLOOD SPECIMENOrdering Facility: [facility] Address: [address] [place] [id number] Performed By: #### 2 4344-4 ####[facility] LABCLIA [id number] [place] [address] [place] Potassium [Moles/Vol] 3.7 mmol/L Normal 3.5-5.0 [facility] Comment on above: Order Comment: Speci men Type: VENOUS BLOOD SPECIMENOrdering Facility: [facility] Address: [address] [place] [address] Performed By: #### 2 4344-4 ####[facility] LABCLIA [id number] [place] [address] [place] Sodium [Moles/Vol] 139 mmol/L Normal 136-144 [facility] Comment on above: Order Comment: Speci men Type: VENOUS BLOOD SPECIMENOrdering Facility: [facility] Address: [address] [place] [address] Performed By: #### 2 4344-4 ####[facility] LABIA [id number] [place] [address] [place] BASE DEFICIT, VENOUS -1 mmol/L Normal -2-0 [facility] Comment on above: Order Comment: Speci men Type: VENOUS BLOOD SPECIMENOrdering Facility: [facility] Address: [address] [place], [place] [address] Performed By: #### 2 4344-4 ####[facility] LABCLIA [id number] [place] [address] [place] Calcium.ionized (Bld) [Mass/Vol] 1.19 mmol/L Normal 1.08-1.30 [facility] Comment on above: Order Comment: Speci men Type: VENOUS BLOOD SPECIMENOrdering Facility: [facility] Address: [address] [place], [place] [address] Performed By: #### 2 4344-4 ####[facility] LABCLIA [id number] [place] [address] [place] Calcium.ionized adjusted to pH 7.4 (BldA) [Moles/Vol] 1.18 mmol/L Normal 1.08-1.30 [facility] Comment on above: Order Comment: Speci men Type: VENOUS BLOOD SPECIMENOrdering Facility: [facility] Address: [address] [place] [address] Performed By: #### 2 4344-4 ####[facility] LABIA [id number] [place] [address] [place] Carboxyhemoglobin (BldV) [Mass fraction] 0.9 % Normal 0.0-2.0 [facility] Comment on above: Order Comment: Speci men Type: VENOUS BLOOD SPECIMENOrdering Facility: [facility] Address: [address] [place] [address] Result Comment: Carb oxyhemoglobin Reference Range for Smokers: 2.0-8.0% Performed By: #### 2 4344-4 ####[facility] LABIA [id number] [place] [address] [place] CO2 (BldV) [Partial pressure] 41 mm[Hg] Low 42-55 [facility] Comment on above: Order Comment: Speci men Type: VENOUS BLOOD SPECIMENOrdering Facility: [facility] Address: [address] [place] [address] Performed By: #### 2 4344-4 ####[facility] LABCLIA [id number] [place] [address] [place] Hematocrit (Bld) [Volume fraction] 35.5 % Low 39.0-51.0 [facility] Comment on above: Order Comment: Speci men Type: VENOUS BLOOD SPECIMENOrdering Facility: [facility] Address: [address] [place] [address] Performed By: #### 2 4344-4 ####[facility] LABIA [id number] [place] [address] [place] Lactate [Moles/Vol] 4.7 mmol/L High 0.5-2.2 [facility] Comment on above: Order Comment: Speci men Type: VENOUS BLOOD SPECIMENOrdering Facility: [facility] Address: [address] [place] [address] Performed By: #### 2 4344-4 ####[facility] LABCLIA [id number] [place] [address] [place] Methemoglobin (Bld) [Mass fraction] 1.6 % High 0.0-1.5 [facility] Comment on above: Order Comment: Speci men Type: VENOUS BLOOD SPECIMENOrdering Facility: [facility] Address: [address] [place] [address] Performed By: #### 2 4344-4 ####[facility] LABCLIA [id number] [place] [address] [place] Oxygen (BldV) [Partial pressure] 45 mm[Hg] Normal 35-45 [facility] Comment on above: Order Comment: Speci men Type: VENOUS BLOOD SPECIMENOrdering Facility: [facility] Address: [address] [place] [address] Performed By: #### 2 4344-4 ####[facility] LABCLIA [id number] [place] [address] [place] Oxygen saturation in Venous blood 78 % Normal 60-85 [facility] Comment on above: Order Comment: Speci men Type: VENOUS BLOOD SPECIMENOrdering Facility: [facility] Address: [address] [place] [address] Performed By: #### 2 4344-4 ####[facility] LABCLIA [id number] [place] [address] [place] Oxyhemoglobin (BldV) [Mass fraction] 76 % Normal 60-85 [facility] Comment on above: Order Comment: Speci men Type: VENOUS BLOOD SPECIMENOrdering Facility: [facility] Address: [address] [place] [address] Performed By: #### 2 4344-4 ####[facility] LABCLIA [id number] [place] [address] [place] pH (BldV) 7.38 [pH] Normal 7.32-7.42 [facility] Comment on above: Order Comment: Speci men Type: VENOUS BLOOD SPECIMENOrdering Facility: [facility] Address: [address] [place] [address] Performed By: #### 2 4344-4 ####[facility] LABCLIA [id number] [place] [address] [place] Sodium [Moles/Vol] 140 mmol/L Normal 136-144 [facility] Comment on above: Order Comment: Speci men Type: VENOUS BLOOD SPECIMENOrdering Facility: [facility] Address: [address] [place] [address] Performed By: #### 2 4344-4 ####[facility] LABIA [id number] [place] [address] [place] BASE DEFICIT, VENOUS -1 mmol/L Normal -2-0 [facility] Comment on above: Order Comment: Speci men Type: VENOUS BLOOD SPECIMENOrdering Facility: [facility] Address: [address] [place] [address] Performed By: #### 2 4344-4 ####[facility] LABCLIA [id number] [place] [address] [place] Calcium.ionized (Bld) [Mass/Vol] 1.18 mmol/L Normal 1.08-1.30 [facility] Comment on above: Order Comment: Speci men Type: VENOUS BLOOD SPECIMENOrdering Facility: [facility] Address: [address] [place] [address] Performed By: #### 2 4344-4 ####[facility] LABCLIA [id number] [place] [address] [place] Calcium.ionized adjusted to pH 7.4 (BldA) [Moles/Vol] 1.15 mmol/L Normal 1.08-1.30 [facility] Comment on above: Order Comment: Speci men Type: VENOUS BLOOD SPECIMENOrdering Facility: [facility] Address: [address] [place] [address] Performed By: #### 2 4344-4 ####[facility] LABCLIA [id number] [address] [place] Carboxyhemoglobin (BldV) [Mass fraction] 1.3 % Normal 0.0-2.0 [facility] Comment on above: Order Comment: Speci men Type: VENOUS BLOOD SPECIMENOrdering Facility: [facility] Address: [address] [place] [address] Result Comment: Carb oxyhemoglobin Reference Range for Smokers: 2.0-8.0% Performed By: #### 2 4344-4 ####[facility] LABIA [id number] [address] [place] CO2 (BldV) [Partial pressure] 46 mm[Hg] Normal 42-55 [facility] Comment on above: Order Comment: Speci men Type: VENOUS BLOOD SPECIMENOrdering Facility: [facility] Address: [address] [place] [address] Performed By: #### 2 4344-4 ####[facility] LABIA [id number] [place] [address] [place] Glucose [Mass/Vol] 166 mg/dL High 60-105 [facility] Comment on above: Order Comment: Speci men Type: VENOUS BLOOD SPECIMENOrdering Facility: [facility] Address: [address] [place] [address] Performed By: #### 2 4344-4 ####[facility] LABCLIA [id number] [place] [address] [place] HCO3 (Bld) [Moles/Vol] 24 mmol/L Normal 24-28 [facility] Comment on above: Order Comment: Speci men Type: VENOUS BLOOD SPECIMENOrdering Facility: [facility] Address: [address] [place] [address] Performed By: #### 2 4344-4 ####[facility] LABIA [id number] [place] [address] [place] Hematocrit (Bld) [Volume fraction] 34.3 % Low 39.0-51.0 [facility] Comment on above: Order Comment: Speci men Type: VENOUS BLOOD SPECIMENOrdering Facility: [facility] Address: [address] [place] [address] Performed By: #### 2 4344-4 ####[facility] LABIA [id number] [place] [address] [place] Hemoglobin (Bld) [Mass/Vol] 11.1 g/dL Low 13.0-17.0 [facility] Comment on above: Order Comment: Speci men Type: VENOUS BLOOD SPECIMENOrdering Facility: [facility] Address: [address] [place] [address] Performed By: #### 2 4344-4 ####[facility] LABIA [id number] [place] [address] [place] Lactate [Moles/Vol] 5.1 mmol/L High 0.5-2.2 [facility] Comment on above: Order Comment: Speci men Type: VENOUS BLOOD SPECIMENOrdering Facility: [facility] Address: [address] [place] [address] Performed By: #### 2 4344-4 ####[facility] LABIA [id number] [place] [address] [place] Oxygen (BldV) [Partial pressure] 45 mm[Hg] Normal 35-45 [facility] Comment on above: Order Comment: Speci men Type: VENOUS BLOOD SPECIMENOrdering Facility: [facility] Address: [address] [place] [address] Performed By: #### 2 4344-4 ####[facility] LABCLIA [id number] [place] [address] [place] Oxygen saturation in Venous blood 78 % Normal 60-85 [facility] Comment on above: Order Comment: Speci men Type: VENOUS BLOOD SPECIMENOrdering Facility: [facility] Address: [address] [place] [address] Performed By: #### 2 4344-4 ####[facility] LABIA [id number] [place] [address] [place] Oxyhemoglobin (BldV) [Mass fraction] 76 % Normal 60-85 [facility] Comment on above: Order Comment: Speci men Type: VENOUS BLOOD SPECIMENOrdering Facility: [facility] Address: [address] [place] [address] Performed By: #### 2 4344-4 ####[facility] LABIA [id number] [place] [address] [place] pH (BldV) 7.34 [pH] Normal 7.32-7.42 [facility] Comment on above: Order Comment: Speci men Type: VENOUS BLOOD SPECIMENOrdering Facility: [facility] Address: [address] [place] [address] Performed By: #### 2 4344-4 ####[facility] LABIA [id number] [place] [address] [place] BASE DEFICIT, VENOUS -2 mmol/L Normal -2-0 [facility] Comment on above: Order Comment: Speci men Type: VENOUS BLOOD SPECIMENOrdering Facility: [facility] Address: [address] [place] [address] Performed By: #### 2 4344-4 ####[facility] LABCLIA [id number] [place] [address] [place] Calcium.ionized (Bld) [Mass/Vol] 1.14 mmol/L Normal 1.08-1.30 [facility] Comment on above: Order Comment: Speci men Type: VENOUS BLOOD SPECIMENOrdering Facility: [facility] Address: [address] [place] [address] Performed By: #### 2 4344-4 ####[facility] LABCLIA [id number] [place] [address] [place] Calcium.ionized adjusted to pH 7.4 (BldA) [Moles/Vol] 1.12 mmol/L Normal 1.08-1.30 [facility] Comment on above: Order Comment: Speci men Type: VENOUS BLOOD SPECIMENOrdering Facility: [facility] Address: [address] [place] [address] Performed By: #### 2 4344-4 ####[facility] LABIA [id number] [place] [address] [place] Carboxyhemoglobin (BldV) [Mass fraction] 1.5 % Normal 0.0-2.0 [facility] Comment on above: Order Comment: Speci men Type: VENOUS BLOOD SPECIMENOrdering Facility: [facility] Address: [address] [place] [address] Result Comment: Carb oxyhemoglobin Reference Range for Smokers: 2.0-8.0% Performed By: #### 2 4344-4 ####[facility] LABIA [id number] [place] [address] [place] CO2 (BldV) [Partial pressure] 39 mm[Hg] Low 42-55 [facility] Comment on above: Order Comment: Speci men Type: VENOUS BLOOD SPECIMENOrdering Facility: [facility] Address: [address] [place] [address] Performed By: #### 2 4344-4 ####[facility] LABCLIA [id number] [place] [address] [place] Glucose [Mass/Vol] 147 mg/dL High 60-105 [facility] Comment on above: Order Comment: Speci men Type: VENOUS BLOOD SPECIMENOrdering Facility: [facility] Address: [address] [place] [address] Performed By: #### 2 4344-4 ####[facility] LABCLIA [id number] [place] [address] [place] HCO3 (Bld) [Moles/Vol] 22 mmol/L Low 24-28 [facility] Comment on above: Order Comment: Speci men Type: VENOUS BLOOD SPECIMENOrdering Facility: [facility] Address: [address] [place] [address] Performed By: #### 2 4344-4 ####[facility] LABIA [id number] [place] [address] [place] Hematocrit (Bld) [Volume fraction] 32.9 % Low 39.0-51.0 [facility] Comment on above: Order Comment: Speci men Type: VENOUS BLOOD SPECIMENOrdering Facility: [facility] Address: [address] [place] [address] Performed By: #### 2 4344-4 ####[facility] LABIA [id number] [place] [address] [place] Hemoglobin (Bld) [Mass/Vol] 10.6 g/dL Low 13.0-17.0 [facility] Comment on above: Order Comment: Speci men Type: VENOUS BLOOD SPECIMENOrdering Facility: [facility] Address: [address] [place] [address] Performed By: #### 2 4344-4 ####[facility] LABIA [id number] [place] [address] [place] Lactate [Moles/Vol] 5.5 mmol/L High 0.5-2.2 [facility] Comment on above: Order Comment: Speci men Type: VENOUS BLOOD SPECIMENOrdering Facility: [facility] Address: [address] [place] [address] Performed By: #### 2 4344-4 ####[facility] LABCLIA [id number] [address] [address] [place] Methemoglobin (Bld) [Mass fraction] 0.8 % Normal 0.0-1.5 [facility] Comment on above: Order Comment: Speci men Type: VENOUS BLOOD SPECIMENOrdering Facility: [facility] Address: [address] [place] [address] Performed By: #### 2 4344-4 ####[facility] LABCLIA [id number] [place] [address] [place] Oxygen (BldV) [Partial pressure] 44 mm[Hg] Normal 35-45 [facility] Comment on above: Order Comment: Speci men Type: VENOUS BLOOD SPECIMENOrdering Facility: [facility] Address: [address] [place] [address] Performed By: #### 2 4344-4 ####[facility] LABIA [id number] [place] [address] [place] Oxygen saturation in Venous blood 79 % Normal 60-85 [facility] Comment on above: Order Comment: Speci men Type: VENOUS BLOOD SPECIMENOrdering Facility: [facility] Address: [address] [place] [address] Performed By: #### 2 4344-4 ####[facility] LABCLIA [id number] [place] [id number] [place] Oxyhemoglobin (BldV) [Mass fraction] 78 % Normal 60-85 [facility] Comment on above: Order Comment: Speci men Type: VENOUS BLOOD SPECIMENOrdering Facility: [facility] Address: [address] [place], [place] [id number] Performed By: #### 2 4344-4 ####[facility] LABCLIA [id number] [place] [id number] [place] pH (BldV) 7.37 [pH] Normal 7.32-7.42 [facility] Comment on above: Order Comment: Speci men Type: VENOUS BLOOD SPECIMENOrdering Facility: [facility] Address: [address] [place] [address] Performed By: #### 2 4344-4 ####[facility] LABCLIA [id number] [place] [address] [place] Potassium [Moles/Vol] 4.2 mmol/L Normal 3.5-5.0 [facility] Comment on above: Order Comment: Speci men Type: VENOUS BLOOD SPECIMENOrdering Facility: [facility] Address: [address] [place] [address] Performed By: #### 2 4344-4 ####[facility] LABCLIA [id number] [place] [address] [place] Sodium [Moles/Vol] 137 mmol/L Normal 136-144 [facility] [facility] Comment on above: Order Comment: Speci men Type: VENOUS BLOOD SPECIMENOrdering Facility: [facility] Address: [address] [place] [address] Performed By: #### 2 4344-4 ####[facility] LABCLIA [id number] [place] [address] [place] BASE DEFICIT, VENOUS -1 mmol/L Normal -2-0 [facility] Comment on above: Order Comment: Speci men Type: VENOUS BLOOD SPECIMENOrdering Facility: [facility] Address: [address] [place] [address] Performed By: #### 2 4344-4 ####[facility] LABCLIA [id number] [place] [address] [place] Calcium.ionized adjusted to pH 7.4 (BldA) [Moles/Vol] 1.15 mmol/L Normal 1.08-1.30 [facility] Comment on above: Order Comment: Speci men Type: VENOUS BLOOD SPECIMENOrdering Facility: [facility] Address: [address] [place] [address] Performed By: #### 2 4344-4 ####[facility] LABCLIA [id number] [place] [address] [place] Carboxyhemoglobin (BldV) [Mass fraction] 1.3 % Normal 0.0-2.0 [facility] Comment on above: Order Comment: Speci men Type: VENOUS BLOOD SPECIMENOrdering Facility: [facility] Address: [address] [place] [address] Result Comment: Carb oxyhemoglobin Reference Range for Smokers: 2.0-8.0% Performed By: #### 2 4344-4 ####[facility] LABIA [id number] [place] [address] [place] CO2 (BldV) [Partial pressure] 42 mm[Hg] Normal 42-55 [facility] Comment on above: Order Comment: Speci men Type: VENOUS BLOOD SPECIMENOrdering Facility: [facility] Address: [address] [place] [address] Performed By: #### 2 4344-4 ####[facility] LABCLIA [id number] [place] [address] [place] CO2 adjusted to patient's actual temperature (BldV) [Partial pressure] 42 mmHg Normal 42-55 [facility] Comment on above: Order Comment: Speci men Type: VENOUS BLOOD SPECIMENOrdering Facility: [facility] Address: [address] [place] [address] Performed By: #### 2 4344-4 ####[facility] LABIA [id number] [place] [address] [place] Glucose [Mass/Vol] 136 mg/dL High 60-105 [facility] Comment on above: Order Comment: Speci men Type: VENOUS BLOOD SPECIMENOrdering Facility: [facility] Address: [address] [place] [address] Performed By: #### 2 4344-4 ####[facility] LABCLIA [id number] [place] [address] [place] HCO3 (Bld) [Moles/Vol] 24 mmol/L Normal 24-28 [facility] Comment on above: Order Comment: Speci men Type: VENOUS BLOOD SPECIMENOrdering Facility: [facility] Address: [address] [place] [address] Performed By: #### 2 4344-4 ####[facility] LABIA [id number] [place] [address] [place] Hematocrit (Bld) [Volume fraction] 34.5 % Low 39.0-51.0 [facility] Comment on above: Order Comment: Speci men Type: VENOUS BLOOD SPECIMENOrdering Facility: [facility] Address: [address] [place] [address] Performed By: #### 2 4344-4 ####[facility] LABIA [id number] [place] [address] [place] Hemoglobin (Bld) [Mass/Vol] 11.2 g/dL Low 13.0-17.0 [facility] Comment on above: Order Comment: Speci men Type: VENOUS BLOOD SPECIMENOrdering Facility: [facility] Address: [address] [place] [address] Performed By: #### 2 4344-4 ####[facility] LABIA [id number] [place] [address] [place] Lactate [Moles/Vol] 4.9 mmol/L High 0.5-2.2 [facility] Comment on above: Order Comment: Speci men Type: VENOUS BLOOD SPECIMENOrdering Facility: [facility] Address: [address] [place] [address] Performed By: #### 2 4344-4 ####[facility] LABIA [id number] [place] [address] [place] Methemoglobin (Bld) [Mass fraction] 1.3 % Normal 0.0-1.5 [facility] Comment on above: Order Comment: Speci men Type: VENOUS BLOOD SPECIMENOrdering Facility: [facility] Address: [address] [place] [address] Performed By: #### 2 4344-4 ####[facility] LABCLIA [id number] [address] [address] [place] Oxygen (BldV) [Partial pressure] 43 mm[Hg] Normal 35-45 [facility] Comment on above: Order Comment: Speci men Type: VENOUS BLOOD SPECIMENOrdering Facility: [facility] Address: [address] [place], [place] [address] Performed By: #### 2 4344-4 ####[facility] LABCLIA [id number] [address] [address] [place] Oxygen adjusted to patient's actual temperature (BldV) [Partial pressure] 44 mmHg Normal 35-45 [facility] Comment on above: Order Comment: Speci men Type: VENOUS BLOOD SPECIMENOrdering Facility: [facility] Address: [address] [place] [address] Performed By: #### 2 4344-4 ####[facility] LABCLIA [id number] [address] [address] [place] Oxygen saturation in Venous blood 79 % Normal 60-85 [facility] Comment on above: Order Comment: Speci men Type: VENOUS BLOOD SPECIMENOrdering Facility: [facility] Address: [address] [place] [address] Performed By: #### 2 4344-4 ####[facility] LABCLIA [id number] [address] [address] [place] Oxyhemoglobin (BldV) [Mass fraction] 77 % Normal 60-85 [facility] Comment on above: Order Comment: Speci men Type: VENOUS BLOOD SPECIMENOrdering Facility: [facility] Address: [address] [place] [address] Performed By: #### 2 4344-4 ####[facility] LABCLIA [id number] [place] [address] [place] pH (BldV) 7.38 [pH] Normal 7.32-7.42 [facility] Comment on above: Order Comment: Speci men Type: VENOUS BLOOD SPECIMENOrdering Facility: [facility] Address: [address] [place] [address] Performed By: #### 2 4344-4 ####[facility] LABIA [id number] [place] [address] [place] pH adjusted to patient's actual temperature (BldV) 7.37 Normal 7.32-7.42 [facility] Comment on above: Order Comment: Speci men Type: VENOUS BLOOD SPECIMENOrdering Facility: [facility] Address: [address] [place] [address] Performed By: #### 2 4344-4 ####[facility] LABIA [id number] [place] [address] [place] Potassium [Moles/Vol] 4.3 mmol/L Normal 3.5-5.0 [facility] Comment on above: Order Comment: Speci men Type: VENOUS BLOOD SPECIMENOrdering Facility: [facility] Address: [address] [place] [address] Performed By: #### 2 4344-4 ####[facility] LABIA [id number] [place] [address] [place] BASE DEFICIT, VENOUS -1 mmol/L Normal -2-0 [facility] Comment on above: Order Comment: Speci men Type: VENOUS BLOOD SPECIMENOrdering Facility: [facility] Address: [address] [place] [address] Performed By: #### 2 4344-4 ####[facility] LABIA [id number] [place] [address] [place] Calcium.ionized (Bld) [Mass/Vol] 1.18 mmol/L Normal 1.08-1.30 [facility] Comment on above: Order Comment: Speci men Type: VENOUS BLOOD SPECIMENOrdering Facility: [facility] Address: [address] [place] [address] Performed By: #### 2 4344-4 ####[facility] LABCLIA [id number] [place] [address] [place] Calcium.ionized adjusted to pH 7.4 (BldA) [Moles/Vol] 1.16 mmol/L Normal 1.08-1.30 [facility] Comment on above: Order Comment: Speci men Type: VENOUS BLOOD SPECIMENOrdering Facility: [facility] Address: [address] [place] [address] Performed By: #### 2 4344-4 ####[facility] LABIA [id number] [place] [address] [place] Carboxyhemoglobin (BldV) [Mass fraction] 1.2 % Normal 0.0-2.0 [facility] Comment on above: Order Comment: Speci men Type: VENOUS BLOOD SPECIMENOrdering Facility: [facility] Address: [address] [place] [address] Result Comment: Carb oxyhemoglobin Reference Range for Smokers: 2.0-8.0% Performed By: #### 2 4344-4 ####[facility] LABIA [id number] [place] [address] [place] CO2 (BldV) [Partial pressure] 42 mm[Hg] Normal 42-55 [facility] Comment on above: Order Comment: Speci men Type: VENOUS BLOOD SPECIMENOrdering Facility: [facility] Address: [address] [place] [address] Performed By: #### 2 4344-4 ####[facility] LABCLIA [id number] [place] [address] [place] CO2 adjusted to patient's actual temperature (BldV) [Partial pressure] 43 mmHg Normal 42-55 [facility] Comment on above: Order Comment: Speci men Type: VENOUS BLOOD SPECIMENOrdering Facility: [facility] Address: [address] [place] [address] Performed By: #### 2 4344-4 ####[facility] LABCLIA [id number] [place] [address] [place] Glucose [Mass/Vol] 129 mg/dL High 60-105 [facility] Comment on above: Order Comment: Speci men Type: VENOUS BLOOD SPECIMENOrdering Facility: [facility] Address: [address] [place] [address] Performed By: #### 2 4344-4 ####[facility] LABIA [id number] [place] [address] [place] HCO3 (Bld) [Moles/Vol] 24 mmol/L Normal 24-28 [facility] Comment on above: Order Comment: Speci men Type: VENOUS BLOOD SPECIMENOrdering Facility: [facility] Address: [address] [place] [address] Performed By: #### 2 4344-4 ####[facility] LABIA [id number] [place] [address] [place] Hematocrit (Bld) [Volume fraction] 34.8 % Low 39.0-51.0 [facility] Comment on above: Order Comment: Speci men Type: VENOUS BLOOD SPECIMENOrdering Facility: [facility] Address: [address] [place] [address] Performed By: #### 2 4344-4 ####[facility] LABIA [id number] [place] [address] [place] Hemoglobin (Bld) [Mass/Vol] 11.3 g/dL Low 13.0-17.0 [facility] Comment on above: Order Comment: Speci men Type: VENOUS BLOOD SPECIMENOrdering Facility: [facility] Address: [address] [place] [address] Performed By: #### 2 4344-4 ####[facility] LABCLIA [id number] [place] [address] [place] Lactate [Moles/Vol] 4.1 mmol/L High 0.5-2.2 [facility] Comment on above: Order Comment: Speci men Type: VENOUS BLOOD SPECIMENOrdering Facility: [facility] Address: [address] [place] [address] Performed By: #### 2 4344-4 ####[facility] LABCLIA [id number] [place] [address] [place] Methemoglobin (Bld) [Mass fraction] 0.8 % Normal 0.0-1.5 [facility] Comment on above: Order Comment: Speci men Type: VENOUS BLOOD SPECIMENOrdering Facility: [facility] Address: [address] [place] [address] Performed By: #### 2 4344-4 ####[facility] LABIA [id number] [place] [address] [place] Oxygen (BldV) [Partial pressure] 53 mm[Hg] High 35-45 [facility] Comment on above: Order Comment: Speci men Type: VENOUS BLOOD SPECIMENOrdering Facility: [facility] Address: [address] [place], [place] [address] Performed By: #### 2 4344-4 ####[facility] LABCLIA [id number] [place] [address] [place] Oxygen adjusted to patient's actual temperature (BldV) [Partial pressure] 55 mmHg High 35-45 [facility] Comment on above: Order Comment: Speci men Type: VENOUS BLOOD SPECIMENOrdering Facility: [facility] Address: [address] [place], [place] [address] Performed By: #### 2 4344-4 ####[facility] LABCLIA [id number] [address] [address] [place] Oxygen saturation in Venous blood 87 % High 60-85 [facility] Comment on above: Order Comment: Speci men Type: VENOUS BLOOD SPECIMENOrdering Facility: [facility] Address: [address] [place], [place] [address] Performed By: #### 2 4344-4 ####[facility] LABCLIA [id number] [place] [address] [place] Oxyhemoglobin (BldV) [Mass fraction] 85 % Normal 60-85 [facility] Comment on above: Order Comment: Speci men Type: VENOUS BLOOD SPECIMENOrdering Facility: [facility] Address: [address] [place] [address] Performed By: #### 2 4344-4 ####[facility] LABCLIA [id number] [place] [address] [place] pH (BldV) 7.37 [pH] Normal 7.32-7.42 [facility] Comment on above: Order Comment: Speci men Type: VENOUS BLOOD SPECIMENOrdering Facility: [facility] Address: [address] [place] [address] Performed By: #### 2 4344-4 ####[facility] LABCLIA [id number] [place] [address] [place] pH adjusted to patient's actual temperature (BldV) 7.37 Normal 7.32-7.42 [facility] Comment on above: Order Comment: Speci men Type: VENOUS BLOOD SPECIMENOrdering Facility: [facility] Address: [address] [place] [address] Performed By: #### 2 4344-4 ####[facility] LABCLIA [id number] [place] [address] [place] Potassium [Moles/Vol] 4.6 mmol/L Normal 3.5-5.0 [facility] Comment on above: Order Comment: Speci men Type: VENOUS BLOOD SPECIMENOrdering Facility: [facility] Address: [address] [place] [address] Performed By: #### 2 4344-4 ####[facility] LABIA [id number] [place] [address] [place] Base excess Calc (BldV) [Moles/Vol] 0 mmol/L Normal 0-2 [facility] Comment on above: Order Comment: Speci men Type: VENOUS BLOOD SPECIMENOrdering Facility: [facility] Address: [address] [place] [address] Performed By: #### 2 4344-4 ####[facility] [id number] [place] [address] [place] Calcium.ionized (Bld) [Mass/Vol] 1.20 mmol/L Normal 1.08-1.30 [facility] Comment on above: Order Comment: Speci men Type: VENOUS BLOOD SPECIMENOrdering Facility: [facility] Address: [address] [place] [address] Performed By: #### 2 4344-4 ####[facility] [id number] [place] [address] [place] Calcium.ionized adjusted to pH 7.4 (BldA) [Moles/Vol] 1.17 mmol/L Normal 1.08-1.30 [facility] Comment on above: Order Comment: Speci men Type: VENOUS BLOOD SPECIMENOrdering Facility: [facility] Address: [address] [place] [address] Performed By: #### 2 4344-4 ####[facility] [id number] [place] [address] [place] Carboxyhemoglobin (BldV) [Mass fraction] 1.1 % Normal 0.0-2.0 [facility] Comment on above: Order Comment: Speci men Type: VENOUS BLOOD SPECIMENOrdering Facility: [facility] Address: [address], [place] [address] Result Comment: Carb oxyhemoglobin Reference Range for Smokers: 2.0-8.0% Performed By: #### 2 4344-4 ####[facility] LABCLIA [id number] [place] [address] [place] CO2 (BldV) [Partial pressure] 45 mm[Hg] Normal 42-55 [facility] Comment on above: Order Comment: Speci men Type: VENOUS BLOOD SPECIMENOrdering Facility: [facility] Address: [address] [place] [address] Performed By: #### 2 4344-4 ####[facility] LABCLIA [id number] [place] [address] [place] CO2 adjusted to patient's actual temperature (BldV) [Partial pressure] 48 mmHg Normal 42-55 [facility] Comment on above: Order Comment: Speci men Type: VENOUS BLOOD SPECIMENOrdering Facility: [facility] Address: [address] [place] [address] Performed By: #### 2 4344-4 ####[facility] LABIA [id number] [place] [address] [place] Glucose [Mass/Vol] 137 mg/dL High 60-105 [facility] Comment on above: Order Comment: Speci men Type: VENOUS BLOOD SPECIMENOrdering Facility: [facility] Address: [address] [place] [address] Performed By: #### 2 4344-4 ####[facility] LABCLIA [id number] [place] [address] [place] HCO3 (Bld) [Moles/Vol] 25 mmol/L Normal 24-28 [facility] Comment on above: Order Comment: Speci men Type: VENOUS BLOOD SPECIMENOrdering Facility: [facility] Address: [address] [place] [address] Performed By: #### 2 4344-4 ####[facility] LABCLIA [id number] [place] [address] [place] Hematocrit (Bld) [Volume fraction] 36.1 % Low 39.0-51.0 [facility] Comment on above: Order Comment: Speci men Type: VENOUS BLOOD SPECIMENOrdering Facility: [facility] Address: [address] [place] [address] Performed By: #### 2 4344-4 ####[facility] LABCLIA [id number] [place] [address] [place] Hemoglobin (Bld) [Mass/Vol] 11.7 g/dL Low 13.0-17.0 [facility] Comment on above: Order Comment: Speci men Type: VENOUS BLOOD SPECIMENOrdering Facility: [facility] Address: [address] [place] [address] Performed By: #### 2 4344-4 ####[facility] LABCLIA [id number] [place] [address] [place] Methemoglobin (Bld) [Mass fraction] 0.7 % Normal 0.0-1.5 [facility] Comment on above: Order Comment: Speci men Type: VENOUS BLOOD SPECIMENOrdering Facility: [facility] Address: [address] [place] [address] Performed By: #### 2 4344-4 ####[facility] LABCLIA [id number] [place] [address] [place] Oxygen (BldV) [Partial pressure] 49 mm[Hg] High 35-45 [facility] Comment on above: Order Comment: Speci men Type: VENOUS BLOOD SPECIMENOrdering Facility: [facility] Address: [address] [place] [address] Performed By: #### 2 4344-4 ####[facility] LABCLIA [id number] [place] [address] [place] Oxygen adjusted to patient's actual temperature (BldV) [Partial pressure] 54 mmHg High 35-45 [facility] Comment on above: Order Comment: Speci men Type: VENOUS BLOOD SPECIMENOrdering Facility: [facility] Address: [address] [place] [address] Performed By: #### 2 4344-4 ####[facility] LABCLIA [id number] [address] [address] [place] Oxygen saturation in Venous blood 84 % Normal 60-85 [facility] Comment on above: Order Comment: Speci men Type: VENOUS BLOOD SPECIMENOrdering Facility: [facility] Address: [address] [place], [place] [address] Performed By: #### 2 4344-4 ####[facility] LABCLIA [id number] [address] [address] [place] Oxyhemoglobin (BldV) [Mass fraction] 82 % Normal 60-85 [facility] Comment on above: Order Comment: Speci men Type: VENOUS BLOOD SPECIMENOrdering Facility: [facility] Address: [address] [place], [place] [address] Performed By: #### 2 4344-4 ####[facility] LABCLIA [id number] [place] [id number] [place] pH (BldV) 7.36 [pH] Normal 7.32-7.42 [facility] Comment on above: Order Comment: Speci men Type: VENOUS BLOOD SPECIMENOrdering Facility: [facility] Address: [address] [place], [place] [address] Performed By: #### 2 4344-4 ####[facility] LABCLIA [id number] [address] [address] [place] pH adjusted to patient's actual temperature (BldV) 7.34 Normal 7.32-7.42 [facility] Comment on above: Order Comment: Speci men Type: VENOUS BLOOD SPECIMENOrdering Facility: [facility] Address: [address] [place] [address] Performed By: #### 2 4344-4 ####[facility] LABCLIA [id number] [address] [address] [place] Potassium [Moles/Vol] 4.7 mmol/L Normal 3.5-5.0 [facility] Comment on above: Order Comment: Speci men Type: VENOUS BLOOD SPECIMENOrdering Facility: [facility] Address: [address] [place] [address] Performed By: #### 2 4344-4 ####[facility] LABCLIA [id number] [place] [id number] [place] SET VENTILATOR RESPIRATORY RATE (BPM) 34 BPM Normal [facility] Comment on above: Order Comment: Speci men Type: VENOUS BLOOD SPECIMENOrdering Facility: [facility] Address: [address] [place] [address] Performed By: #### 2 4344-4 ####[facility] LABCLIA [id number] [place] [address] [place] Sodium [Moles/Vol] 139 mmol/L Normal 136-144 [facility] Comment on above: Order Comment: Speci men Type: VENOUS BLOOD SPECIMENOrdering Facility: [facility] Address: [address] [place] [address] Performed By: #### 2 4344-4 ####[facility] LABCLIA [id number] [place] [address] [place] HIGH SENSITIVITY TROPONIN To n 01-24-2024 Troponin T.cardiac High sensitivity method [Mass/Vol] 3237 ng/L High <12 [facility] Comment on above: Order Comment: Speci men Type: BLOOD SPECIMENOrdering Facility: [facility] Address: [address] [place] [address] Performed By: #### 2 4323-8, HSTNT ####[facility] LABCLIA [id number] [address] [address] [place] NUTRITIONon 01-24-2024 NUTRITION Normal [facility] TYPE + SCREENon 01-24-2024 ABO O Normal [facility] Comment on above: Order Comment: Speci men Type: BLOOD SPECIMENOrdering Facility: [facility] Address: [address] [place] [address] Performed By: #### T SCR ####[facility] BLOOD BANKIA [id number] [place] [address] [place] Rh Nom (Bld) Positive Normal [facility] Comment on above: Order Comment: Speci men Type: BLOOD SPECIMENOrdering Facility: [facility] Address: [address] [place] [address] Performed By: #### T SCR ####[facility] BLOOD BANKIA [id number] [place] [address] [place] TYPE AND SCREEN EXPIRATION 01/27/2024 23:59 Normal [facility] Comment on above: Order Comment: Speci men Type: BLOOD SPECIMENOrdering Facility: [facility] Address: [address] [place] [address] Performed By: #### T SCR ####[facility] BLOOD [facility] [id number] [place] [address] [place] URINALYSIS, REFLEX MICROSCOP ICon 01-24-2024 Bacteria LM.HPF (Urine sed) [#/Area] Negative Normal Negative [facility] Comment on above: Order Comment: Speci men Type: URINE SPECIMENOrdering Facility: [facility] Address: [address] [place] [address] Performed By: #### L [id number] ####[facility] LABCLIA [id number] [place] [address] [place] Bilirubin Ql (U) Negative Normal Negative [facility] Comment on above: Order Comment: Speci men Type: URINE SPECIMENOrdering Facility: [facility] Address: [address] [place] [address] Performed By: #### L [id number] ####[facility] LABCLIA [id number] [place] [address] [place] Clarity (Unsp spec) Turbid Abnormal Clear [facility] Comment on above: Order Comment: Speci men Type: URINE SPECIMENOrdering Facility: [facility] Address: [address] [place] [address] Performed By: #### L [id number] ####[facility] LABCLIA [id number] [place] [address] [place] Color (U) Dark Yellow Abnormal Yellow [facility] Comment on above: Order Comment: Speci men Type: URINE SPECIMENOrdering Facility: [facility] Address: [address] [place] [address] Performed By: #### L [id number] ####[facility] LABCLIA [id number] [place] [address] [place] Epithelial cells LM.HPF (Urine sed) [#/Area] None Seen Normal [facility] Comment on above: Order Comment: Speci men Type: URINE SPECIMENOrdering Facility: [facility] Address: [address] [place] [address] Result Comment: Few Performed By: #### L [id number] ####[facility] LABCLIA [id number] [place] [address] [place] Glucose Test strip (U) [Mass/Vol] Negative Normal Negative [facility] Comment on above: Order Comment: Speci men Type: URINE SPECIMENOrdering Facility: [facility] Address: [address] [place] [address] Performed By: #### L [id number] ####[facility] LABCLIA [id number] [place] [address] [place] Granular casts (Urine sed) [#/Area] 1-3 /LPF Abnormal 0 /LPF [facility] Comment on above: Order Comment: Speci men Type: URINE SPECIMENOrdering Facility: [facility] Address: [address] [place] [address] Performed By: #### L [id number] ####[facility] LABCLIA [id number] [place] [address] [place] Hemoglobin Ql (U) Negative Normal Negative [facility] Comment on above: Order Comment: Speci men Type: URINE SPECIMENOrdering Facility: [facility] Address: [address] [place] [address] Performed By: #### L [id number] ####[facility] LABCLIA [id number] [place] [address] [place] Hyaline casts (Urine sed) [#/Area] 4-10 /LPF Abnormal 0 /LPF [facility] Comment on above: Order Comment: Speci men Type: URINE SPECIMENOrdering Facility: [facility] Address: [address] [place] [address] Performed By: #### L [id number] ####[facility] LABCLIA [id number] [place] [address] [place] Ketones Ql (U) Negative Normal Negative [facility] Comment on above: Order Comment: Speci men Type: URINE SPECIMENOrdering Facility: [facility] Address: [address] [place] [address] Performed By: #### L [id number] ####[facility] LABCLIA [id number] [place] [address] [place] Leukocyte esterase Test strip Ql (U) Negative Normal Negative [facility] Comment on above: Order Comment: Speci men Type: URINE SPECIMENOrdering Facility: [facility] Address: [address] [place] [address] Performed By: #### L [id number] ####[facility] LABCLIA [id number] [place] [address] [place] Nitrite Ql (U) Negative Normal Negative [facility] Comment on above: Order Comment: Speci men Type: URINE SPECIMENOrdering Facility: [facility] Address: [address] [place] [address] Performed By: #### L [id number] ####[facility] LABIA [id number] [place] [address] [place] [facility] pH (U) 5.5 [pH] Normal <8.5 [facility] Comment on above: Order Comment: Speci men Type: URINE SPECIMENOrdering Facility: [facility] Address: [address] [place] [address] Performed By: #### L [id number] ####[facility] LABIA [id number] [place] [address] [place] Protein (U) [Mass/Vol] 1+ Abnormal Negative [facility] Comment on above: Order Comment: Speci men Type: URINE SPECIMENOrdering Facility: [facility] Address: [address] [place] [address] Performed By: #### L [id number] ####[facility] LABIA [id number] [place] [address] [place] RBC LM.HPF (Urine sed) [#/Area] 0-2 /HPF Normal 0-2 /HPF [facility] Comment on above: Order Comment: Speci men Type: URINE SPECIMENOrdering Facility: [facility] Address: [address] [place] [address] Performed By: #### L [id number] ####[facility] LABIA [id number] [place] [address] [place] Specific gravity (U) [Rel density] 1.041 High 1.005-1.030 [facility] Comment on above: Order Comment: Speci men Type: URINE SPECIMENOrdering Facility: [facility] Address: [address] [place] [address] Performed By: #### L [id number] ####[facility] LABIA [id number] [id number] [address] [place] Urobilinogen Ql (U) 0.2 EU/dL Normal 0.2-1.0 EU/dL [facility] Comment on above: Order Comment: Speci men Type: URINE SPECIMENOrdering Facility: [facility] Address: [address] [place] [address] Performed By: #### L [id number] ####[facility] LABCLIA [id number] [place] [address] [place] WBC LM.HPF (Urine sed) [#/Area] 0-5 /HPF Normal 0-5 /HPF [facility] Comment on above: Order Comment: Speci men Type: URINE SPECIMENOrdering Facility: [facility] Address: [address] [place] [address] Performed By: #### L [id number] ####[facility] LABIA [id number] [place] [address] [place] XR CHEST 1V FRONTAL PORTon 1 XR CHEST 1V FRONTAL PORT Normal [facility] ANES POSTPROC EVALon 024 ANES POSTPROC EVAL Normal [facility] ANES PRE-OPon 01-23-2024 ANES PRE-OP Normal [facility] ARTERIAL BLOOD GASESon 01-22 Base excess Calc (Bld) [Moles/Vol] 0 mmol/L Normal 0-2 [facility] Comment on above: Order Comment: Speci men Type: ARTERIAL BLOOD SPECIMENOrdering Facility: [facility] Address: [address] [place] [address] Performed By: #### A LLBG ####[facility] LABIA [id number] [place] [address] [place] Calcium.ionized (Bld) [Mass/Vol] 1.20 mmol/L Normal 1.08-1.30 [facility] Comment on above: Order Comment: Speci men Type: ARTERIAL BLOOD SPECIMENOrdering Facility: [facility] Address: [address] [place] [address] Performed By: #### A LLBG ####[facility] LABCLIA [id number] [place] [address] [place] Calcium.ionized adjusted to pH 7.4 (BldA) [Moles/Vol] 1.21 mmol/L Normal 1.08-1.30 [facility] Comment on above: Order Comment: Speci men Type: ARTERIAL BLOOD SPECIMENOrdering Facility: [facility] Address: [address] [place] [address] Performed By: #### A LLBG ####[facility] LABCLIA [id number] [place] [address] [place] Carboxyhemoglobin (BldA) [Mass fraction] 1.6 % Normal 0.0-2.0 [facility] Comment on above: Order Comment: Speci men Type: ARTERIAL BLOOD SPECIMENOrdering Facility: [facility] Address: [address] [place] [address] Result Comment: Carb oxyhemoglobin Reference Range for Smokers: 2.0-8.0% Performed By: #### A LLBG ####[facility] LABCLIA [id number] [place] [address] [place] CO2 (Bld) [Partial pressure] 37 mm Hg Normal 36-46 [facility] Comment on above: Order Comment: Speci men Type: ARTERIAL BLOOD SPECIMENOrdering Facility: [facility] Address: [address] [place] [address] Performed By: #### A LLBG ####[facility] LABCLIA [id number] [place] [address] [place] CO2 adjusted to patient's actual temperature (Bld) [Partial pressure] 41 mmHg Normal 36-46 [facility] Comment on above: Order Comment: Speci men Type: ARTERIAL BLOOD SPECIMENOrdering Facility: [facility] Address: [address] [place] [address] Performed By: #### A LLBG ####[facility] LABCLIA [id number] [place] [address] [place] Glucose [Mass/Vol] 149 mg/dL High 60-105 [facility] Comment on above: Order Comment: Speci men Type: ARTERIAL BLOOD SPECIMENOrdering Facility: [facility] Address: [address] [place] [address] Performed By: #### A LLBG ####[facility] LABCLIA [id number] [place] [address] [place] Hematocrit (Bld) [Volume fraction] 37.0 % Low 39.0-51.0 [facility] Comment on above: Order Comment: Speci men Type: ARTERIAL BLOOD SPECIMENOrdering Facility: [facility] Address: [address] [place] [address] Performed By: #### A LLBG ####[facility] LABCLIA [id number] [place] [address] [place] Hemoglobin (Bld) [Mass/Vol] 12.0 g/dL Low 13.0-17.0 [facility] Comment on above: Order Comment: Speci men Type: ARTERIAL BLOOD SPECIMENOrdering Facility: [facility] Address: [address] [place] [address] Performed By: #### A LLBG ####[facility] LABCLIA [id number] [place] [address] [place] Lactate [Moles/Vol] 5.6 mmol/L High 0.5-2.2 [facility] Comment on above: Order Comment: Speci men Type: ARTERIAL BLOOD SPECIMENOrdering Facility: [facility] Address: [address] [place] [address] Performed By: #### A LLBG ####[facility] LABCLIA [id number] [place] [address] [place] Methemoglobin (Bld) [Mass fraction] 0.8 % Normal 0.0-1.5 [facility] Comment on above: Order Comment: Speci men Type: ARTERIAL BLOOD SPECIMENOrdering Facility: [facility] Address: [address] [place] [id number] Performed By: #### A LLBG ####[facility] LABCLIA [id number] [address] [address] [place] Oxygen (Bld) [Partial pressure] 91 mm Hg Normal 85-95 [facility] Comment on above: Order Comment: Speci men Type: ARTERIAL BLOOD SPECIMENOrdering Facility: [facility] Address: [address] [place] [address] Performed By: #### A LLBG ####[facility] LABCLIA [id number] [place] [address] [place] Oxygen adjusted to patient's actual temperature (Bld) [Partial pressure] 103 mmHg High 85-95 [facility] Comment on above: Order Comment: Speci men Type: ARTERIAL BLOOD SPECIMENOrdering Facility: [facility] Address: [address] [place] [address] Performed By: #### A LLBG ####[facility] LABCLIA [id number] [place] [address] [place] Oxyhemoglobin (BldA) [Mass fraction] 96 % Normal 95-98 [facility] Comment on above: Order Comment: Speci men Type: ARTERIAL BLOOD SPECIMENOrdering Facility: [facility] Address: [address] [place] [address] Performed By: #### A LLBG ####[facility] LABCLIA [id number] [place] [id number] [place] pH (Bld) 7.42 [pH] Normal 7.35-7.45 [facility] Comment on above: Order Comment: Speci men Type: ARTERIAL BLOOD SPECIMENOrdering Facility: [facility] Address: [address] [place], [place] [id number] Performed By: #### A LLBG ####[facility] LABCLIA [id number] [place] [address] [place] pH adjusted to patient's actual temperature (Bld) 7.39 Normal 7.35-7.45 [facility] Comment on above: Order Comment: Speci men Type: ARTERIAL BLOOD SPECIMENOrdering Facility: [facility] Address: [address] [place] [address] Performed By: #### A LLBG ####[facility] LABCLIA [id number] [place] [address] [place] PO2 / FIO2 RATIO 303 mmHg Normal >300 [facility] Comment on above: Order Comment: Speci men Type: ARTERIAL BLOOD SPECIMENOrdering Facility: [facility] Address: [address] [place] [address] Performed By: #### A LLBG ####[facility] LABCLIA [id number] [place] [address] [place] Potassium [Moles/Vol] 4.9 mmol/L Normal 3.5-5.0 [facility] Comment on above: Order Comment: Speci men Type: ARTERIAL BLOOD SPECIMENOrdering Facility: [facility] Address: [address] [place] [address] Performed By: #### A LLBG ####[facility] LABCLIA [id number] [place] [address] [place] Sodium [Moles/Vol] 137 mmol/L Normal 136-144 [facility] Comment on above: Order Comment: Speci men Type: ARTERIAL BLOOD SPECIMENOrdering Facility: [facility] Address: [address] [place] [address] Performed By: #### A LLBG ####[facility] LABCLIA [id number] [place] [id number] [place] Base deficit (BldA) [Moles/Vol] -1 mmol/L Normal -2-0 [facility] Comment on above: Order Comment: Speci men Type: ARTERIAL BLOOD SPECIMENOrdering Facility: [facility] Address: [address] [place] [address] Performed By: #### A LLBG ####[facility] [id number] [place] [address] [place] Calcium.ionized (Bld) [Mass/Vol] 1.22 mmol/L Normal 1.08-1.30 [facility] Comment on above: Order Comment: Speci men Type: ARTERIAL BLOOD SPECIMENOrdering Facility: [facility] Address: [address] [place] [address] Performed By: #### A LLBG ####[facility] [id number] [place] [address] [place] Calcium.ionized adjusted to pH 7.4 (BldA) [Moles/Vol] 1.23 mmol/L Normal 1.08-1.30 [facility] Comment on above: Order Comment: Speci men Type: ARTERIAL BLOOD SPECIMENOrdering Facility: [facility] Address: [address] [place] [address] Performed By: #### A LLBG ####[facility] [id number] [place] [address] [place] Carboxyhemoglobin (BldA) [Mass fraction] 1.1 % Normal 0.0-2.0 [facility] Comment on above: Order Comment: Speci men Type: ARTERIAL BLOOD SPECIMENOrdering Facility: [facility] Address: [address] [place] [address] Result Comment: Carb oxyhemoglobin Reference Range for Smokers: 2.0-8.0% Performed By: #### A LLBG ####[facility] [id number] [place] [address] [place] CO2 (Bld) [Partial pressure] 35 mm Hg Low 36-46 [facility] Comment on above: Order Comment: Speci men Type: ARTERIAL BLOOD SPECIMENOrdering Facility: [facility] Address: [address] [place] [address] Performed By: #### A LLBG ####[facility] LABCLIA [id number] [place] [address] [place] CO2 adjusted to patient's actual temperature (Bld) [Partial pressure] 38 mmHg Normal 36-46 [facility] Comment on above: Order Comment: Speci men Type: ARTERIAL BLOOD SPECIMENOrdering Facility: [facility] Address: [address] [place] [address] Performed By: #### A LLBG ####[facility] LABCLIA [id number] [place] [address] [place] Glucose [Mass/Vol] 146 mg/dL High 60-105 [facility] Comment on above: Order Comment: Speci men Type: ARTERIAL BLOOD SPECIMENOrdering Facility: [facility] Address: [address] [place] [address] Performed By: #### A LLBG ####[facility] LABCLIA [id number] [place] [address] [place] HCO3 (Bld) [Moles/Vol] 22 mmol/L Normal 22-26 [facility] Comment on above: Order Comment: Speci men Type: ARTERIAL BLOOD SPECIMENOrdering Facility: [facility] Address: [address] [place] [address] Performed By: #### A LLBG ####[facility] LABCLIA [id number] [place] [address] [place] Hematocrit (Bld) [Volume fraction] 36.9 % Low 39.0-51.0 [facility] Comment on above: Order Comment: Speci men Type: ARTERIAL BLOOD SPECIMENOrdering Facility: [facility] Address: [address] [place] [address] Performed By: #### A LLBG ####[facility] LABCLIA [id number] [address] [place] [address] [place] Hemoglobin (Bld) [Mass/Vol] 12.0 g/dL Low 13.0-17.0 [facility] Comment on above: Order Comment: Speci men Type: ARTERIAL BLOOD SPECIMENOrdering Facility: [facility] Address: [address] [place] [address] Performed By: #### A LLBG ####[facility] LABCLIA [id number] [place] [address] [place] Lactate [Moles/Vol] 5.9 mmol/L High 0.5-2.2 [facility] Comment on above: Order Comment: Speci men Type: ARTERIAL BLOOD SPECIMENOrdering Facility: [facility] Address: [address] [place] [address] Performed By: #### A LLBG ####[facility] LABCLIA [id number] [place] [address] [place] Methemoglobin (Bld) [Mass fraction] 0.7 % Normal 0.0-1.5 [facility] Comment on above: Order Comment: Speci men Type: ARTERIAL BLOOD SPECIMENOrdering Facility: [facility] Address: [address] [place] [address] Performed By: #### A LLBG ####[facility] LABCLIA [id number] [place] [address] [place] Oxygen (Bld) [Partial pressure] 123 mm Hg High 85-95 [facility] Comment on above: Order Comment: Speci men Type: ARTERIAL BLOOD SPECIMENOrdering Facility: [facility] Address: [address] [place] [address] Performed By: #### A LLBG ####[facility] LABCLIA [id number] [place] [address] [place] Oxygen adjusted to patient's actual temperature (Bld) [Partial pressure] 132 mmHg High 85-95 [facility] Comment on above: Order Comment: Speci men Type: ARTERIAL BLOOD SPECIMENOrdering Facility: [facility] Address: [address] [place] [address] Performed By: #### A LLBG ####[facility] LABCLIA [id number] [place] [address] [place] Oxyhemoglobin (BldA) [Mass fraction] 97 % Normal 95-98 [facility] Comment on above: Order Comment: Speci men Type: ARTERIAL BLOOD SPECIMENOrdering Facility: [facility] Address: [address] [place] [address] Performed By: #### A LLBG ####[facility] LABIA [id number] [place] [address] [place] pH (Bld) 7.42 [pH] Normal 7.35-7.45 [facility] Comment on above: Order Comment: Speci men Type: ARTERIAL BLOOD SPECIMENOrdering Facility: [facility] Address: [address] [place] [address] Performed By: #### A LLBG ####[facility] LABIA [id number] [place] [address] [place] pH adjusted to patient's actual temperature (Bld) 7.39 Normal 7.35-7.45 [facility] Comment on above: Order Comment: Speci men Type: ARTERIAL BLOOD SPECIMENOrdering Facility: [facility] Address: [address] [place] [address] Performed By: #### A LLBG ####[facility] LABCLIA [id number] [place] [address] [place] PO2 / FIO2 RATIO 410 mmHg Normal >300 [facility] Comment on above: Order Comment: Speci men Type: ARTERIAL BLOOD SPECIMENOrdering Facility: [facility] Address: [address] [place] [address] Performed By: #### A LLBG ####[facility] LABIA [id number] [place] [address] [place] Potassium [Moles/Vol] 4.7 mmol/L Normal 3.5-5.0 [facility] Comment on above: Order Comment: Speci men Type: ARTERIAL BLOOD SPECIMENOrdering Facility: [facility] Address: [address] [place] [address] Performed By: #### A LLBG ####[facility] LABCLIA [id number] [place] [address] [place] SET VENTILATOR RESPIRATORY RATE (BPM) 24 BPM Normal [facility] Comment on above: Order Comment: Speci men Type: ARTERIAL BLOOD SPECIMENOrdering Facility: [facility] Address: [address] [place] [address] Performed By: #### A LLBG ####[facility] LABCLIA [id number] [place] [address] [place] Sodium [Moles/Vol] 138 mmol/L Normal 136-144 [facility] Comment on above: Order Comment: Speci men Type: ARTERIAL BLOOD SPECIMENOrdering Facility: [facility] Address: [address] [place] [address] Performed By: #### A LLBG ####[facility] LABCLIA [id number] [place] [address] [place] Base deficit (BldA) [Moles/Vol] -2 mmol/L Normal -2-0 [facility] Comment on above: Order Comment: Speci men Type: ARTERIAL BLOOD SPECIMENOrdering Facility: [facility] Address: [address] [place] [address] Performed By: #### A LLBG ####[facility] LABCLIA [id number] [place] [address] [place] Calcium.ionized (Bld) [Mass/Vol] 1.19 mmol/L Normal 1.08-1.30 [facility] Comment on above: Order Comment: Speci men Type: ARTERIAL BLOOD SPECIMENOrdering Facility: [facility] Address: [address] [place] [address] Performed By: #### A LLBG ####[facility] LABCLIA [id number] [place] [address] [place] Calcium.ionized adjusted to pH 7.4 (BldA) [Moles/Vol] 1.20 mmol/L Normal 1.08-1.30 [facility] Comment on above: Order Comment: Speci men Type: ARTERIAL BLOOD SPECIMENOrdering Facility: [facility] Address: [address] [place] [address] Performed By: #### A LLBG ####[facility] LABIA [id number] [place] [address] [place] Carboxyhemoglobin (BldA) [Mass fraction] 0.9 % Normal 0.0-2.0 [facility] Comment on above: Order Comment: Speci men Type: ARTERIAL BLOOD SPECIMENOrdering Facility: [facility] Address: [address] [place] [address] Result Comment: Carb oxyhemoglobin Reference Range for Smokers: 2.0-8.0% Performed By: #### A LLBG ####[facility] LABCLIA [id number] [place] [address] [place] CO2 (Bld) [Partial pressure] 35 mm Hg Low 36-46 [facility] Comment on above: Order Comment: Speci men Type: ARTERIAL BLOOD SPECIMENOrdering Facility: [facility] Address: [address] [place] [address] Performed By: #### A LLBG ####[facility] LABCLIA [id number] [place] [address] [place] CO2 adjusted to patient's actual temperature (Bld) [Partial pressure] 37 mmHg Normal 36-46 [facility] Comment on above: Order Comment: Speci men Type: ARTERIAL BLOOD SPECIMENOrdering Facility: [facility] Address: [address] [place] [address] Performed By: #### A LLBG ####[facility] LABCLIA [id number] [place] [address] [place] Glucose [Mass/Vol] 132 mg/dL High 60-105 [facility] Comment on above: Order Comment: Speci men Type: ARTERIAL BLOOD SPECIMENOrdering Facility: [facility] Address: [address] [place] [address] Performed By: #### A LLBG ####[facility] LABCLIA [id number] [place] [address] [place] HCO3 (Bld) [Moles/Vol] 21 mmol/L Low 22-26 [facility] Comment on above: Order Comment: Speci men Type: ARTERIAL BLOOD SPECIMENOrdering Facility: [facility] Address: [address] [place] [address] Performed By: #### A LLBG ####[facility] LABCLIA [id number] [place] [address] [place] Hematocrit (Bld) [Volume fraction] 37.1 % Low 39.0-51.0 [facility] Comment on above: Order Comment: Speci men Type: ARTERIAL BLOOD SPECIMENOrdering Facility: [facility] Address: [address] [place] [address] Performed By: #### A LLBG ####[facility] LABCLIA [id number] [place] [address] [place] Hemoglobin (Bld) [Mass/Vol] 12.0 g/dL Low 13.0-17.0 [facility] Comment on above: Order Comment: Speci men Type: ARTERIAL BLOOD SPECIMENOrdering Facility: [facility] Address: [address] [place] [address] Performed By: #### A LLBG ####[facility] LABCLIA [id number] [place] [address] [place] Lactate [Moles/Vol] 7.3 mmol/L High 0.5-2.2 [facility] Comment on above: Order Comment: Speci men Type: ARTERIAL BLOOD SPECIMENOrdering Facility: [facility] Address: [address] [place] [address] Performed By: #### A LLBG ####[facility] LABCLIA [id number] [address] [address] [place] Methemoglobin (Bld) [Mass fraction] 0.6 % Normal 0.0-1.5 [facility] Comment on above: Order Comment: Speci men Type: ARTERIAL BLOOD SPECIMENOrdering Facility: [facility] Address: [address] [place] [id number] Performed By: #### A LLBG ####[facility] LABCLIA [id number] [place] [address] [place] Oxygen (Bld) [Partial pressure] 122 mm Hg High 85-95 [facility] Comment on above: Order Comment: Speci men Type: ARTERIAL BLOOD SPECIMENOrdering Facility: [facility] Address: [address] [place] [id number] Performed By: #### A LLBG ####[facility] LABCLIA [id number] [place] [address] [place] Oxygen adjusted to patient's actual temperature (Bld) [Partial pressure] 129 mmHg High 85-95 [facility] Comment on above: Order Comment: Speci men Type: ARTERIAL BLOOD SPECIMENOrdering Facility: [facility] Address: [address] [place] [id number] Performed By: #### A LLBG ####[facility] LABCLIA [id number] [address] [address] [place] Oxyhemoglobin (BldA) [Mass fraction] 97 % Normal 95-98 [facility] Comment on above: Order Comment: Speci men Type: ARTERIAL BLOOD SPECIMENOrdering Facility: [facility] Address: [address] [place] [id number] Performed By: #### A LLBG ####[facility] LABCLIA [id number] [place] [address] [place] pH (Bld) 7.40 [pH] Normal 7.35-7.45 [facility] Comment on above: Order Comment: Speci men Type: ARTERIAL BLOOD SPECIMENOrdering Facility: [facility] Address: [address] [place] [address] Performed By: #### A LLBG ####[facility] LABCLIA [id number] [place] [address] [place] pH adjusted to patient's actual temperature (Bld) 7.39 Normal 7.35-7.45 [facility] Comment on above: Order Comment: Speci men Type: ARTERIAL BLOOD SPECIMENOrdering Facility: [facility] Address: [address] [place] [address] Performed By: #### A LLBG ####[facility] LABCLIA [id number] [place] [address] [place] PO2 / FIO2 RATIO 407 mmHg Normal >300 [facility] Comment on above: Order Comment: Speci men Type: ARTERIAL BLOOD SPECIMENOrdering Facility: [facility] Address: [address] [place] [address] Performed By: #### A LLBG ####[facility] LABCLIA [id number] [place] [address] [place] Potassium [Moles/Vol] 4.4 mmol/L Normal 3.5-5.0 [facility] Comment on above: Order Comment: Speci men Type: ARTERIAL BLOOD SPECIMENOrdering Facility: [facility] Address: [address] [place] [address] Performed By: #### A LLBG ####[facility] LABCLIA [id number] [place] [address] [place] Sodium [Moles/Vol] 138 mmol/L Normal 136-144 [facility] Comment on above: Order Comment: Speci men Type: ARTERIAL BLOOD SPECIMENOrdering Facility: [facility] Address: [address] [place] [address] Performed By: #### A LLBG ####[facility] LABCLIA [id number] [place] [address] [place] Base deficit (BldA) [Moles/Vol] -2 mmol/L Normal -2-0 [facility] Comment on above: Order Comment: Speci men Type: ARTERIAL BLOOD SPECIMENOrdering Facility: [facility] Address: [address] [place] [address] Performed By: #### A LLBG ####[facility] LABCLIA [id number] [place] [address] [place] Body temperature 99.14 [degF] Normal [facility] Comment on above: Order Comment: Speci men Type: ARTERIAL BLOOD SPECIMENOrdering Facility: [facility] Address: [address] [place] [address] Performed By: #### A LLBG ####[facility] LABCLIA [id number] [place] [address] [place] Calcium.ionized (Bld) [Mass/Vol] 1.24 mmol/L Normal 1.08-1.30 [facility] Comment on above: Order Comment: Speci men Type: ARTERIAL BLOOD SPECIMENOrdering Facility: [facility] Address: [address] [place] [address] Performed By: #### A LLBG ####[facility] LABCLIA [id number] [place] [address] [place] Calcium.ionized adjusted to pH 7.4 (BldA) [Moles/Vol] 1.22 mmol/L Normal 1.08-1.30 [facility] Comment on above: Order Comment: Speci men Type: ARTERIAL BLOOD SPECIMENOrdering Facility: [facility] Address: [address] [place] [address] Performed By: #### A LLBG ####[facility] LABCLIA [id number] [place] [address] [place] Carboxyhemoglobin (BldA) [Mass fraction] 1.5 % Normal 0.0-2.0 [facility] Comment on above: Order Comment: Speci men Type: ARTERIAL BLOOD SPECIMENOrdering Facility: [facility] Address: [address] [place] [address] Result Comment: Carb oxyhemoglobin Reference Range for Smokers: 2.0-8.0% Performed By: #### A LLBG ####[facility] LABIA [id number] [place] [address] [place] CO2 (Bld) [Partial pressure] 39 mm Hg Normal 36-46 [facility] Comment on above: Order Comment: Speci men Type: ARTERIAL BLOOD SPECIMENOrdering Facility: [facility] Address: [address] [place] [address] Performed By: #### A LLBG ####[facility] LABIA [id number] [place] [address] [place] CO2 adjusted to patient's actual temperature (Bld) [Partial pressure] 40 mmHg Normal 36-46 [facility] Comment on above: Order Comment: Speci men Type: ARTERIAL BLOOD SPECIMENOrdering Facility: [facility] Address: [address] [place] [address] Performed By: #### A LLBG ####[facility] LABIA [id number] [place] [address] [place] FIO2 40 % Normal [facility] Comment on above: Order Comment: Speci men Type: ARTERIAL BLOOD SPECIMENOrdering Facility: [facility] Address: [address] [place] [address] Performed By: #### A LLBG ####[facility] LABIA [id number] [place] [address] [place] Glucose [Mass/Vol] 157 mg/dL High 60-105 [facility] Comment on above: Order Comment: Speci men Type: ARTERIAL BLOOD SPECIMENOrdering Facility: [facility] Address: [address] [place] [address] Performed By: #### A LLBG ####[facility] LABCLIA [id number] [place] [address] [place] HCO3 (Bld) [Moles/Vol] 22 mmol/L Normal 22-26 [facility] Comment on above: Order Comment: Speci men Type: ARTERIAL BLOOD SPECIMENOrdering Facility: [facility] Address: [address] [place] [address] Performed By: #### A LLBG ####[facility] LABCLIA [id number] [place] [address] [place] Hematocrit (Bld) [Volume fraction] 38.3 % Low 39.0-51.0 [facility] Comment on above: Order Comment: Speci men Type: ARTERIAL BLOOD SPECIMENOrdering Facility: [facility] Address: [address] [place] [address] Performed By: #### A LLBG ####[facility] LABCLIA [id number] [place] [address] [place] Hemoglobin (Bld) [Mass/Vol] 12.5 g/dL Low 13.0-17.0 [facility] Comment on above: Order Comment: Speci men Type: ARTERIAL BLOOD SPECIMENOrdering Facility: [facility] Address: [address] [place] [address] Performed By: #### A LLBG ####[facility] LABCLIA [id number] [place] [address] [place] Lactate [Moles/Vol] 9.0 mmol/L High 0.5-2.2 [facility] Comment on above: Order Comment: Speci men Type: ARTERIAL BLOOD SPECIMENOrdering Facility: [facility] Address: [address] [place] [address] Performed By: #### A LLBG ####[facility] LABCLIA [id number] [address] [address] [place] Methemoglobin (Bld) [Mass fraction] 1.3 % Normal 0.0-1.5 [facility] Comment on above: Order Comment: Speci men Type: ARTERIAL BLOOD SPECIMENOrdering Facility: [facility] Address: [address] [place] [phone] Performed By: #### A LLBG ####[facility] LABCLIA [id number] [place] [id number] [place] O2 THERAPY VENT=Ventilator Normal [facility] Comment on above: Order Comment: Speci men Type: ARTERIAL BLOOD SPECIMENOrdering Facility: [facility] Address: [address] [place], [place] [id number] Performed By: #### A LLBG ####[facility] LABCLIA [id number] [place] [id number] [place] Oxygen (Bld) [Partial pressure] 147 mm Hg High 85-95 [facility] Comment on above: Order Comment: Speci men Type: ARTERIAL BLOOD SPECIMENOrdering Facility: [facility] Address: [address] [place] [phone] Performed By: #### A LLBG ####[facility] LABCLIA [id number] [place] [id number] [place] Oxygen adjusted to patient's actual temperature (Bld) [Partial pressure] 148 mmHg High 85-95 [facility] Comment on above: Order Comment: Speci men Type: ARTERIAL BLOOD SPECIMENOrdering Facility: [facility] Address: [address] [place] [address] Performed By: #### A LLBG ####[facility] LABCLIA [id number] [address] [address] [place] Oxyhemoglobin (BldA) [Mass fraction] 97 % Normal 95-98 [facility] Comment on above: Order Comment: Speci men Type: ARTERIAL BLOOD SPECIMENOrdering Facility: [facility] Address: [address] [place] [address] Performed By: #### A LLBG ####[facility] LABCLIA [id number] [place] [address] [place] pH (Bld) 7.37 [pH] Normal 7.35-7.45 [facility] Comment on above: Order Comment: Speci men Type: ARTERIAL BLOOD SPECIMENOrdering Facility: [facility] Address: [address] [place] [address] Performed By: #### A LLBG ####[facility] LABCLIA [id number] [place] [address] [place] pH adjusted to patient's actual temperature (Bld) 7.37 Normal 7.35-7.45 [facility] Comment on above: Order Comment: Speci men Type: ARTERIAL BLOOD SPECIMENOrdering Facility: [facility] Address: [address] [place] [address] Performed By: #### A LLBG ####[facility] LABIA [id number] [place] [address] [place] PO2 / FIO2 RATIO 368 mmHg Normal >300 [facility] Comment on above: Order Comment: Speci men Type: ARTERIAL BLOOD SPECIMENOrdering Facility: [facility] Address: [address] [place] [address] Performed By: #### A LLBG ####[facility] LABCLIA [id number] [place] [address] [place] Potassium [Moles/Vol] 4.1 mmol/L Normal 3.5-5.0 [facility] Comment on above: Order Comment: Speci men Type: ARTERIAL BLOOD SPECIMENOrdering Facility: [facility] Address: [address] [place] [address] Performed By: #### A LLBG ####[facility] LABCLIA [id number] [place] [id number] [place] Sodium [Moles/Vol] 138 mmol/L Normal 136-144 [facility] Comment on above: Order Comment: Speci men Type: ARTERIAL BLOOD SPECIMENOrdering Facility: [facility] Address: [address] [place] [address] Performed By: #### A LLBG ####[facility] LABCLIA [id number] [place] [address] [place] Base deficit (BldA) [Moles/Vol] -6 mmol/L Low -2-0 [facility] Comment on above: Order Comment: Speci men Type: ARTERIAL BLOOD SPECIMENOrdering Facility: [facility] Address: [address] [place] [address] Performed By: #### A LLBG ####[facility] LABCLIA [id number] [place] [address] [place] Body temperature 99.14 [degF] Normal [facility] Comment on above: Order Comment: Speci men Type: ARTERIAL BLOOD SPECIMENOrdering Facility: [facility] Address: [address] [place] [address] Performed By: #### A LLBG ####[facility] LABCLIA [id number] [place] [address] [place] Order Comment: Speci men Type: VENOUS BLOOD SPECIMENOrdering Facility: [facility] Address: [address] [place] [address] Performed By: #### 2 4344-4 ####[facility] LABCLIA [id number] [place] [address] [place] Calcium.ionized (Bld) [Mass/Vol] 1.20 mmol/L Normal 1.08-1.30 [facility] Comment on above: Order Comment: Speci men Type: ARTERIAL BLOOD SPECIMENOrdering Facility: [facility] Address: [address] [place] [address] Performed By: #### A LLBG ####[facility] LABIA [id number] [place] [address] [place] Calcium.ionized adjusted to pH 7.4 (BldA) [Moles/Vol] 1.14 mmol/L Normal 1.08-1.30 [facility] Comment on above: Order Comment: Speci men Type: ARTERIAL BLOOD SPECIMENOrdering Facility: [facility] Address: [address] [place] [address] Performed By: #### A LLBG ####[facility] LABIA [id number] [place] [address] [place] Carboxyhemoglobin (BldA) [Mass fraction] 1.0 % Normal 0.0-2.0 [facility] Comment on above: Order Comment: Speci men Type: ARTERIAL BLOOD SPECIMENOrdering Facility: [facility] Address: [address] [place] [address] Result Comment: Carb oxyhemoglobin Reference Range for Smokers: 2.0-8.0% Performed By: #### A LLBG ####[facility] [id number] [place] [address] [place] CO2 (Bld) [Partial pressure] 38 mm Hg Normal 36-46 [facility] Comment on above: Order Comment: Speci men Type: ARTERIAL BLOOD SPECIMENOrdering Facility: [facility] Address: [address] [place] [address] Performed By: #### A LLBG ####[facility] LABIA [id number] [place] [address] [place] CO2 adjusted to patient's actual temperature (Bld) [Partial pressure] 39 mmHg Normal 36-46 [facility] Comment on above: Order Comment: Speci men Type: ARTERIAL BLOOD SPECIMENOrdering Facility: [facility] Address: [address] [place] [address] Performed By: #### A LLBG ####[facility] LABIA [id number] [place] [address] [place] FIO2 40 % Normal [facility] Comment on above: Order Comment: Speci men Type: ARTERIAL BLOOD SPECIMENOrdering Facility: [facility] Address: [address] [place] [address] Performed By: #### A LLBG ####[facility] LABCLIA [id number] [place] [address] [place] Order Comment: Speci men Type: VENOUS BLOOD SPECIMENOrdering Facility: [facility] Address: [address] [place] [address] Performed By: #### 2 4344-4 ####[facility] LABCLIA [id number] [place] [address] [place] Glucose [Mass/Vol] 166 mg/dL High 60-105 [facility] Comment on above: Order Comment: Speci men Type: ARTERIAL BLOOD SPECIMENOrdering Facility: [facility] Address: [address] [place] [address] Performed By: #### A LLBG ####[facility] LABCLIA [id number] [place] [address] [place] HCO3 (Bld) [Moles/Vol] 19 mmol/L Low 24-28 [facility] Comment on above: Order Comment: Speci men Type: ARTERIAL BLOOD SPECIMENOrdering Facility: [facility] Address: [address] [place] [address] Performed By: #### A LLBG ####[facility] LABCLIA [id number] [place] [address] [place] Order Comment: Speci men Type: VENOUS BLOOD SPECIMENOrdering Facility: [facility] Address: [address] [place] [address] Performed By: #### 2 4344-4 ####[facility] LABCLIA [id number] [place] [address] [place] Hematocrit (Bld) [Volume fraction] 41.0 % Normal 39.0-51.0 [facility] Comment on above: Order Comment: Speci men Type: ARTERIAL BLOOD SPECIMENOrdering Facility: [facility] Address: [address] [place] [address] Performed By: #### A LLBG ####[facility] LABCLIA [id number] [place] [address] [place] Hemoglobin (Bld) [Mass/Vol] 13.4 g/dL Normal 13.0-17.0 [facility] Comment on above: Order Comment: Speci men Type: ARTERIAL BLOOD SPECIMENOrdering Facility: [facility] Address: [address] [place] [address] Performed By: #### A LLBG ####[facility] LABCLIA [id number] [place] [address] [place] Lactate [Moles/Vol] 8.3 mmol/L High 0.5-2.2 [facility] Comment on above: Order Comment: Speci men Type: ARTERIAL BLOOD SPECIMENOrdering Facility: [facility] Address: [address] [place] [address] Performed By: #### A LLBG ####[facility] LABCLIA [id number] [place] [address] [place] Methemoglobin (Bld) [Mass fraction] 0.9 % Normal 0.0-1.5 [facility] Comment on above: Order Comment: Speci men Type: ARTERIAL BLOOD SPECIMENOrdering Facility: [facility] Address: [address] [place] [address] Performed By: #### A LLBG ####[facility] LABCLIA [id number] [place] [address] [place] Order Comment: Speci men Type: VENOUS BLOOD SPECIMENOrdering Facility: [facility] Address: [address] [place] [address] Performed By: #### 2 4344-4 ####[facility] LABCLIA [id number] [address] [address] [place] O2 THERAPY VENT=Ventilator Normal [facility] Comment on above: Order Comment: Speci men Type: ARTERIAL BLOOD SPECIMENOrdering Facility: [facility] Address: [address] [place] [id number] Performed By: #### A LLBG ####[facility] LABCLIA [id number] [address] [address] [place] Order Comment: Speci men Type: VENOUS BLOOD SPECIMENOrdering Facility: [facility] Address: [address] [place] [id number] Performed By: #### 2 4344-4 ####[facility] LABCLIA [id number] [place] [id number] [place] Oxygen (Bld) [Partial pressure] 156 mm Hg High 85-95 [facility] Comment on above: Order Comment: Speci men Type: ARTERIAL BLOOD SPECIMENOrdering Facility: [facility] Address: [address] [place] [id number] Performed By: #### A LLBG ####[facility] LABCLIA [id number] [place] [id number] [place] Oxygen adjusted to patient's actual temperature (Bld) [Partial pressure] 158 mmHg High 85-95 [facility] Comment on above: Order Comment: Speci men Type: ARTERIAL BLOOD SPECIMENOrdering Facility: [facility] Address: [address] [place] [id number] Performed By: #### A LLBG ####[facility] LABCLIA [id number] [place] [id number] [place] Oxyhemoglobin (BldA) [Mass fraction] 97 % Normal 95-98 [facility] Comment on above: Order Comment: Speci men Type: ARTERIAL BLOOD SPECIMENOrdering Facility: [facility] Address: [address] [place] [id number] Performed By: #### A LLBG ####[facility] LABCLIA [id number] [place] [address] [place] pH (Bld) 7.32 [pH] Low 7.35-7.45 [facility] Comment on above: Order Comment: Speci men Type: ARTERIAL BLOOD SPECIMENOrdering Facility: [facility] Address: [address] [place] [address] Performed By: #### A LLBG ####[facility] LABCLIA [id number] [place] [address] [place] pH adjusted to patient's actual temperature (Bld) 7.31 Low 7.35-7.45 [facility] Comment on above: Order Comment: Speci men Type: ARTERIAL BLOOD SPECIMENOrdering Facility: [facility] Address: [address] [place] [address] Performed By: #### A LLBG ####[facility] LABCLIA [id number] [place] [address] [place] PO2 / FIO2 RATIO 390 mmHg Normal >300 [facility] Comment on above: Order Comment: Speci men Type: ARTERIAL BLOOD SPECIMENOrdering Facility: [facility] Address: [address] [place] [address] Performed By: #### A LLBG ####[facility] LABCLIA [id number] [place] [address] [place] Potassium [Moles/Vol] 3.9 mmol/L Normal 3.5-5.0 [facility] Comment on above: Order Comment: Speci men Type: ARTERIAL BLOOD SPECIMENOrdering Facility: [facility] Address: [address] [place] [address] Performed By: #### A LLBG ####[facility] LABCLIA [id number] [place] [address] [place] Sodium [Moles/Vol] 142 mmol/L Normal 136-144 [facility] Comment on above: Order Comment: Speci men Type: ARTERIAL BLOOD SPECIMENOrdering Facility: [facility] Address: [address] [place] [address] Performed By: #### A LLBG ####[facility] LABCLIA [id number] [place] [address] [place] Base deficit (BldA) [Moles/Vol] -4 mmol/L Low -2-0 [facility] Comment on above: Order Comment: Speci men Type: ARTERIAL BLOOD SPECIMENOrdering Facility: [facility] Address: [address] [place] [address] Performed By: #### A LLBG ####[facility] LABCLIA [id number] [place] [address] [place] Body temperature 97.7 [degF] Normal [facility] Comment on above: Order Comment: Speci men Type: ARTERIAL BLOOD SPECIMENOrdering Facility: [facility] Address: [address] [place] [address] Performed By: #### A LLBG ####[facility] LABCLIA [id number] [place] [address] [place] Calcium.ionized (Bld) [Mass/Vol] 1.15 mmol/L Normal 1.08-1.30 [facility] Comment on above: Order Comment: Speci men Type: ARTERIAL BLOOD SPECIMENOrdering Facility: [facility] Address: [address] [place] [address] Performed By: #### A LLBG ####[facility] LABCLIA [id number] [place] [address] [place] Calcium.ionized adjusted to pH 7.4 (BldA) [Moles/Vol] 1.09 mmol/L Normal 1.08-1.30 [facility] Comment on above: Order Comment: Speci men Type: ARTERIAL BLOOD SPECIMENOrdering Facility: [facility] Address: [address] [place] [address] Performed By: #### A LLBG ####[facility] LABCLIA [id number] [place] [address] [place] Carboxyhemoglobin (BldA) [Mass fraction] 0.9 % Normal 0.0-2.0 [facility] Comment on above: Order Comment: Speci men Type: ARTERIAL BLOOD SPECIMENOrdering Facility: [facility] Address: [address] [place] [address] Result Comment: Carb oxyhemoglobin Reference Range for Smokers: 2.0-8.0% Performed By: #### A LLBG ####[facility] LABCLIA [id number] [place] [address] [place] CO2 (Bld) [Partial pressure] 45 mm Hg Normal 36-46 [facility] Comment on above: Order Comment: Speci men Type: ARTERIAL BLOOD SPECIMENOrdering Facility: [facility] Address: [address] [place] [address] Performed By: #### A LLBG ####[facility] LABCLIA [id number] [place] [address] [place] CO2 adjusted to patient's actual temperature (Bld) [Partial pressure] 44 mmHg Normal 36-46 [facility] Comment on above: Order Comment: Speci men Type: ARTERIAL BLOOD SPECIMENOrdering Facility: [facility] Address: [address] [place] [address] Performed By: #### A LLBG ####[facility] LABCLIA [id number] [place] [address] [place] FIO2 50 % Normal [facility] Comment on above: Order Comment: Speci men Type: ARTERIAL BLOOD SPECIMENOrdering Facility: [facility] Address: [address] [place] [address] Performed By: #### A LLBG ####[facility] LABCLIA [id number] [place] [address] [place] Glucose [Mass/Vol] 186 mg/dL High 60-105 [facility] Comment on above: Order Comment: Speci men Type: ARTERIAL BLOOD SPECIMENOrdering Facility: [facility] Address: [address] [place] [address] Performed By: #### A LLBG ####[facility] LABCLIA [id number] [place] [address] [place] HCO3 (Bld) [Moles/Vol] 22 mmol/L Normal 22-26 [facility] Comment on above: Order Comment: Speci men Type: ARTERIAL BLOOD SPECIMENOrdering Facility: [facility] Address: [address] [place] [address] Performed By: #### A LLBG ####[facility] LABCLIA [id number] [place] [address] [place] Hematocrit (Bld) [Volume fraction] 40.4 % Normal 39.0-51.0 [facility] Comment on above: Order Comment: Speci men Type: ARTERIAL BLOOD SPECIMENOrdering Facility: [facility] Address: [address] [place] [address] Performed By: #### A LLBG ####[facility] LABIA [id number] [place] [address] [place] Hemoglobin (Bld) [Mass/Vol] 13.1 g/dL Normal 13.0-17.0 [facility] Comment on above: Order Comment: Speci men Type: ARTERIAL BLOOD SPECIMENOrdering Facility: [facility] Address: [address] [place] [address] Performed By: #### A LLBG ####[facility] LABIA [id number] [place] [address] [place] Lactate [Moles/Vol] 7.1 mmol/L High 0.5-2.2 [facility] Comment on above: Order Comment: Speci men Type: ARTERIAL BLOOD SPECIMENOrdering Facility: [facility] Address: [address] [place] [address] Performed By: #### A LLBG ####[facility] LABCLIA [id number] [place] [address] [place] Methemoglobin (Bld) [Mass fraction] 1.0 % Normal 0.0-1.5 [facility] Comment on above: Order Comment: Speci men Type: ARTERIAL BLOOD SPECIMENOrdering Facility: [facility] Address: [address] [place], [place] [address] Performed By: #### A LLBG ####[facility] LABCLIA [id number] [place] [id number] [place] O2 THERAPY VENT=Ventilator Normal [facility] Comment on above: Order Comment: Speci men Type: ARTERIAL BLOOD SPECIMENOrdering Facility: [facility] Address: [address] [place], [place] [address] Performed By: #### A LLBG ####[facility] LABCLIA [id number] [place] [id number] [place] Oxygen (Bld) [Partial pressure] 191 mm Hg High 85-95 [facility] Comment on above: Order Comment: Speci men Type: ARTERIAL BLOOD SPECIMENOrdering Facility: [facility] Address: [address] [place], [place] [address] Performed By: #### A LLBG ####[facility] LABCLIA [id number] [place] [id number] [place] Oxygen adjusted to patient's actual temperature (Bld) [Partial pressure] 188 mmHg High 85-95 [facility] Comment on above: Order Comment: Speci men Type: ARTERIAL BLOOD SPECIMENOrdering Facility: [facility] Address: [address] [place], [place] [id number] Performed By: #### A LLBG ####[facility] LABCLIA [id number] [address] [address] [place] Oxyhemoglobin (BldA) [Mass fraction] 97 % Normal 95-98 [facility] Comment on above: Order Comment: Speci men Type: ARTERIAL BLOOD SPECIMENOrdering Facility: [facility] Address: [address] [place] [address] Performed By: #### A LLBG ####[facility] LABCLIA [id number] [place] [address] [place] pH (Bld) 7.31 [pH] Low 7.35-7.45 [facility] Comment on above: Order Comment: Speci men Type: ARTERIAL BLOOD SPECIMENOrdering Facility: [facility] Address: [address] [place] [address] Performed By: #### A LLBG ####[facility] LABCLIA [id number] [place] [address] [place] pH adjusted to patient's actual temperature (Bld) 7.32 Low 7.35-7.45 [facility] Comment on above: Order Comment: Speci men Type: ARTERIAL BLOOD SPECIMENOrdering Facility: [facility] Address: [address] [place] [address] Performed By: #### A LLBG ####[facility] LABCLIA [id number] [place] [address] [place] PO2 / FIO2 RATIO 382 mmHg Normal >300 [facility] Comment on above: Order Comment: Speci men Type: ARTERIAL BLOOD SPECIMENOrdering Facility: [facility] Address: [address] [place] [address] Performed By: #### A LLBG ####[facility] LABCLIA [id number] [place] [address] [place] Potassium [Moles/Vol] 3.7 mmol/L Normal 3.5-5.0 [facility] Comment on above: Order Comment: Speci men Type: ARTERIAL BLOOD SPECIMENOrdering Facility: [facility] Address: [address] [place] [address] Performed By: #### A LLBG ####[facility] LABCLIA [id number] [place] [address] [place] Sodium [Moles/Vol] 141 mmol/L Normal 136-144 [facility] Comment on above: Order Comment: Speci men Type: ARTERIAL BLOOD SPECIMENOrdering Facility: [facility] Address: [address] [place] [address] Performed By: #### A LLBG ####[facility] LABIA [id number] [place] [address] [place] Base deficit (BldA) [Moles/Vol] -7 mmol/L Low -2-0 [facility] Comment on above: Order Comment: Speci men Type: ARTERIAL BLOOD SPECIMENOrdering Facility: [facility] Address: [address] [place] [address] Performed By: #### A LLBG ####[facility] LABIA [id number] [place] [address] [place] Body temperature 97.7 [degF] Normal [facility] Comment on above: Order Comment: Speci men Type: ARTERIAL BLOOD SPECIMENOrdering Facility: [facility] Address: [address] [place] [address] Performed By: #### A LLBG ####[facility] LABIA [id number] [place] [address] [place] Calcium.ionized (Bld) [Mass/Vol] 1.20 mmol/L Normal 1.08-1.30 [facility] Comment on above: Order Comment: Speci men Type: ARTERIAL BLOOD SPECIMENOrdering Facility: [facility] Address: [address] [place] [address] Performed By: #### A LLBG ####[facility] LABIA [id number] [place] [address] [place] Calcium.ionized adjusted to pH 7.4 (BldA) [Moles/Vol] 1.12 mmol/L Normal 1.08-1.30 [facility] Comment on above: Order Comment: Speci men Type: ARTERIAL BLOOD SPECIMENOrdering Facility: [facility] Address: [address] [place] [address] Performed By: #### A LLBG ####[facility] LABCLIA [id number] [address] [address] [place] Carboxyhemoglobin (BldA) [Mass fraction] 1.1 % Normal 0.0-2.0 [facility] Comment on above: Order Comment: Speci men Type: ARTERIAL BLOOD SPECIMENOrdering Facility: [facility] Address: [address] [place] [address] Result Comment: Carb oxyhemoglobin Reference Range for Smokers: 2.0-8.0% Performed By: #### A LLBG ####[facility] LABCLIA [id number] [place] [address] [place] CO2 (Bld) [Partial pressure] 43 mm Hg Normal 36-46 [facility] Comment on above: Order Comment: Speci men Type: ARTERIAL BLOOD SPECIMENOrdering Facility: [facility] Address: [address] [place] [address] Performed By: #### A LLBG ####[facility] LABCLIA [id number] [place] [address] [place] CO2 adjusted to patient's actual temperature (Bld) [Partial pressure] 42 mmHg Normal 36-46 [facility] Comment on above: Order Comment: Speci men Type: ARTERIAL BLOOD SPECIMENOrdering Facility: [facility] Address: [address] [place] [address] Performed By: #### A LLBG ####[facility] LABCLIA [id number] [place] [id number] [place] FIO2 50 % Normal [facility] Comment on above: Order Comment: Speci men Type: ARTERIAL BLOOD SPECIMENOrdering Facility: [facility] Address: [address] [place] [address] Performed By: #### A LLBG ####[facility] LABCLIA [id number] [place] [address] [place] Glucose [Mass/Vol] 179 mg/dL High 60-105 [facility] Comment on above: Order Comment: Speci men Type: ARTERIAL BLOOD SPECIMENOrdering Facility: [facility] Address: [address] [place] [address] Performed By: #### A LLBG ####[facility] LABCLIA [id number] [place] [address] [place] HCO3 (Bld) [Moles/Vol] 19 mmol/L Low 22-26 [facility] Comment on above: Order Comment: Speci men Type: ARTERIAL BLOOD SPECIMENOrdering Facility: [facility] Address: [address] [place] [address] Performed By: #### A LLBG ####[facility] LABCLIA [id number] [place] [address] [place] Hematocrit (Bld) [Volume fraction] 42.1 % Normal 39.0-51.0 [facility] Comment on above: Order Comment: Speci men Type: ARTERIAL BLOOD SPECIMENOrdering Facility: [facility] Address: [address] [place] [address] Performed By: #### A LLBG ####[facility] LABCLIA [id number] [place] [address] [place] Hemoglobin (Bld) [Mass/Vol] 13.7 g/dL Normal 13.0-17.0 [facility] Comment on above: Order Comment: Speci men Type: ARTERIAL BLOOD SPECIMENOrdering Facility: [facility] Address: [address] [place] [address] Performed By: #### A LLBG ####[facility] LABCLIA [id number] [place] [address] [place] Lactate [Moles/Vol] 6.4 mmol/L High 0.5-2.2 [facility] Comment on above: Order Comment: Speci men Type: ARTERIAL BLOOD SPECIMENOrdering Facility: [facility] Address: [address] [place] [address] Performed By: #### A LLBG ####[facility] LABCLIA [id number] [address] [address] [place] Methemoglobin (Bld) [Mass fraction] 1.4 % Normal 0.0-1.5 [facility] Comment on above: Order Comment: Speci men Type: ARTERIAL BLOOD SPECIMENOrdering Facility: [facility] Address: [address] [place] [id number] Performed By: #### A LLBG ####[facility] LABCLIA [id number] [address] [address] [place] O2 THERAPY VENT=Ventilator Normal [facility] Comment on above: Order Comment: Speci men Type: ARTERIAL BLOOD SPECIMENOrdering Facility: [facility] Address: [address] [place] [id number] Performed By: #### A LLBG ####[facility] LABCLIA [id number] [address] [address] [place] Oxygen (Bld) [Partial pressure] 198 mm Hg High 85-95 [facility] Comment on above: Order Comment: Speci men Type: ARTERIAL BLOOD SPECIMENOrdering Facility: [facility] Address: [address] [place] [address] Performed By: #### A LLBG ####[facility] LABCLIA [id number] [address] [address] [place] Oxygen adjusted to patient's actual temperature (Bld) [Partial pressure] 196 mmHg High 85-95 [facility] Comment on above: Order Comment: Speci men Type: ARTERIAL BLOOD SPECIMENOrdering Facility: [facility] Address: [address] [place] [address] Performed By: #### A LLBG ####[facility] LABCLIA [id number] [place] [address] [place] Oxyhemoglobin (BldA) [Mass fraction] 97 % Normal 95-98 [facility] Comment on above: Order Comment: Speci men Type: ARTERIAL BLOOD SPECIMENOrdering Facility: [facility] Address: [address] [place] [address] Performed By: #### A LLBG ####[facility] LABCLIA [id number] [place] [address] [place] pH (Bld) 7.27 [pH] Low 7.35-7.45 [facility] Comment on above: Order Comment: Speci men Type: ARTERIAL BLOOD SPECIMENOrdering Facility: [facility] Address: [address] [place] [address] Performed By: #### A LLBG ####[facility] LABIA [id number] [place] [address] [place] pH adjusted to patient's actual temperature (Bld) 7.28 Low 7.35-7.45 [facility] Comment on above: Order Comment: Speci men Type: ARTERIAL BLOOD SPECIMENOrdering Facility: [facility] Address: [address] [place] [address] Performed By: #### A LLBG ####[facility] LABIA [id number] [place] [address] [place] PO2 / FIO2 RATIO 396 mmHg Normal >300 [facility] Comment on above: Order Comment: Speci men Type: ARTERIAL BLOOD SPECIMENOrdering Facility: [facility] Address: [address] [place] [address] Performed By: #### A LLBG ####[facility] LABIA [id number] [place] [address] [place] Potassium [Moles/Vol] 3.8 mmol/L Normal 3.5-5.0 [facility] Comment on above: Order Comment: Speci men Type: ARTERIAL BLOOD SPECIMENOrdering Facility: [facility] Address: [address] [place] [address] Performed By: #### A LLBG ####[facility] LABCLIA [id number] [place] [address] [place] Sodium [Moles/Vol] 140 mmol/L Normal 136-144 [facility] Comment on above: Order Comment: Speci men Type: ARTERIAL BLOOD SPECIMENOrdering Facility: [facility] Address: [address] [place] [address] Performed By: #### A LLBG ####[facility] LABCLIA [id number] [place] [address] [place] Base deficit (BldA) [Moles/Vol] -7 mmol/L Low -2-0 [facility] Comment on above: Order Comment: Speci men Type: ARTERIAL BLOOD SPECIMENOrdering Facility: [facility] Address: [address] [place] [address] Performed By: #### A LLBG ####[facility] LABCLIA [id number] [place] [address] [place] Body temperature 98.6 [degF] Normal [facility] Comment on above: Order Comment: Speci men Type: ARTERIAL BLOOD SPECIMENOrdering Facility: [facility] Address: [address] [place] [address] Performed By: #### A LLBG ####[facility] LABCLIA [id number] [place] [address] [place] Calcium.ionized (Bld) [Mass/Vol] 1.22 mmol/L Normal 1.08-1.30 [facility] Comment on above: Order Comment: Speci men Type: ARTERIAL BLOOD SPECIMENOrdering Facility: [facility] Address: [address] [place] [address] Performed By: #### A LLBG ####[facility] LABCLIA [id number] [place] [address] [place] Calcium.ionized adjusted to pH 7.4 (BldA) [Moles/Vol] 1.14 mmol/L Normal 1.08-1.30 [facility] Comment on above: Order Comment: Speci men Type: ARTERIAL BLOOD SPECIMENOrdering Facility: [facility] Address: [address] [place] [address] Performed By: #### A LLBG ####[facility] LABCLIA [id number] [place] [address] [place] Carboxyhemoglobin (BldA) [Mass fraction] 1.3 % Normal 0.0-2.0 [facility] Comment on above: Order Comment: Speci men Type: ARTERIAL BLOOD SPECIMENOrdering Facility: [facility] Address: [address] [place] [address] Result Comment: Carb oxyhemoglobin Reference Range for Smokers: 2.0-8.0% Performed By: #### A LLBG ####[facility] LABCLIA [id number] [place] [address] [place] CO2 (Bld) [Partial pressure] 41 mm Hg Normal 36-46 [facility] Comment on above: Order Comment: Speci men Type: ARTERIAL BLOOD SPECIMENOrdering Facility: [facility] Address: [address] [place] [address] Performed By: #### A LLBG ####[facility] LABCLIA [id number] [place] [address] [place] FIO2 90 % Normal [facility] Comment on above: Order Comment: Speci men Type: ARTERIAL BLOOD SPECIMENOrdering Facility: [facility] Address: [address] [place] [address] Performed By: #### A LLBG ####[facility] LABCLIA [id number] [place] [address] [place] Glucose [Mass/Vol] 178 mg/dL High 60-105 [facility] Comment on above: Order Comment: Speci men Type: ARTERIAL BLOOD SPECIMENOrdering Facility: [facility] Address: [address] [place] [address] Performed By: #### A LLBG ####[facility] LABCLIA [id number] [place] [address] [place] HCO3 (Bld) [Moles/Vol] 19 mmol/L Low 22-26 [facility] Comment on above: Order Comment: Speci men Type: ARTERIAL BLOOD SPECIMENOrdering Facility: [facility] Address: [address] [place] [address] Performed By: #### A LLBG ####[facility] LABCLIA [id number] [place] [address] [place] Hematocrit (Bld) [Volume fraction] 41.0 % Normal 39.0-51.0 [facility] Comment on above: Order Comment: Speci men Type: ARTERIAL BLOOD SPECIMENOrdering Facility: [facility] Address: [address] [place] [address] Performed By: #### A LLBG ####[facility] LABCLIA [id number] [place] [address] [place] Hemoglobin (Bld) [Mass/Vol] 13.4 g/dL Normal 13.0-17.0 [facility] Comment on above: Order Comment: Speci men Type: ARTERIAL BLOOD SPECIMENOrdering Facility: [facility] Address: [address] [place] [address] Performed By: #### A LLBG ####[facility] LABCLIA [id number] [place] [address] [place] Lactate [Moles/Vol] 4.9 mmol/L High 0.5-2.2 [facility] Comment on above: Order Comment: Speci men Type: ARTERIAL BLOOD SPECIMENOrdering Facility: [facility] Address: [address] [place] [address] Performed By: #### A LLBG ####[facility] LABCLIA [id number] [address] [address] [place] Methemoglobin (Bld) [Mass fraction] 1.0 % Normal 0.0-1.5 [facility] Comment on above: Order Comment: Speci men Type: ARTERIAL BLOOD SPECIMENOrdering Facility: [facility] Address: [address] [place] [address] Performed By: #### A LLBG ####[facility] LABCLIA [id number] [place] [id number] [place] O2 THERAPY VENT=Ventilator Normal [facility] Comment on above: Order Comment: Speci men Type: ARTERIAL BLOOD SPECIMENOrdering Facility: [facility] Address: [address] [place], [place] [address] Performed By: #### A LLBG ####[facility] LABIA [id number] [place] [address] [place] Oxygen (Bld) [Partial pressure] 290 mm Hg High 85-95 [facility] Comment on above: Order Comment: Speci men Type: ARTERIAL BLOOD SPECIMENOrdering Facility: [facility] Address: [address] [place] [id number] Performed By: #### A LLBG ####[facility] LABCLIA [id number] [place] [id number] [place] Oxyhemoglobin (BldA) [Mass fraction] 98 % Normal 95-98 [facility] Comment on above: Order Comment: Speci men Type: ARTERIAL BLOOD SPECIMENOrdering Facility: [facility] Address: [address] [place] [address] Performed By: #### A LLBG ####[facility] LABIA [id number] [place] [id number] [place] pH (Bld) 7.29 [pH] Low 7.35-7.45 [facility] Comment on above: Order Comment: Speci men Type: ARTERIAL BLOOD SPECIMENOrdering Facility: [facility] Address: [address] [place] [address] Performed By: #### A LLBG ####[facility] LABCLIA [id number] [place] [address] [place] PO2 / FIO2 RATIO 322 mmHg Normal >300 [facility] Comment on above: Order Comment: Speci men Type: ARTERIAL BLOOD SPECIMENOrdering Facility: [facility] Address: [address] [place] [address] Performed By: #### A LLBG ####[facility] LABCLIA [id number] [place] [address] [place] Potassium [Moles/Vol] 3.9 mmol/L Normal 3.5-5.0 [facility] Comment on above: Order Comment: Speci men Type: ARTERIAL BLOOD SPECIMENOrdering Facility: [facility] Address: [address] [place] [address] Performed By: #### A LLBG ####[facility] LABCLIA [id number] [place] [address] [place] Sodium [Moles/Vol] 140 mmol/L Normal 136-144 [facility] Comment on above: Order Comment: Speci men Type: ARTERIAL BLOOD SPECIMENOrdering Facility: [facility] Address: [address] [place] [address] Performed By: #### A LLBG ####[facility] LABCLIA [id number] [place] [address] [place] Base deficit (BldA) [Moles/Vol] -5 mmol/L Low -2-0 [facility] Comment on above: Order Comment: Speci men Type: ARTERIAL BLOOD SPECIMENOrdering Facility: [facility] Address: [address] [place] [address] Performed By: #### A LLBG ####[facility] LABCLIA [id number] [place] [address] [place] Body temperature 98.6 [degF] Normal [facility] Comment on above: Order Comment: Speci men Type: ARTERIAL BLOOD SPECIMENOrdering Facility: [facility] Address: [address] [place] [address] Performed By: #### A LLBG ####[facility] LABCLIA [id number] [place] [address] [place] Calcium.ionized (Bld) [Mass/Vol] 1.19 mmol/L Normal 1.08-1.30 [facility] Comment on above: Order Comment: Speci men Type: ARTERIAL BLOOD SPECIMENOrdering Facility: [facility] Address: [address] [place] [address] Performed By: #### A LLBG ####[facility] LABCLIA [id number] [place] [address] [place] Calcium.ionized adjusted to pH 7.4 (BldA) [Moles/Vol] 1.14 mmol/L Normal 1.08-1.30 [facility] Comment on above: Order Comment: Speci men Type: ARTERIAL BLOOD SPECIMENOrdering Facility: [facility] Address: [address] [place] [address] Performed By: #### A LLBG ####[facility] LABCLIA [id number] [place] [address] [place] Carboxyhemoglobin (BldA) [Mass fraction] 1.4 % Normal 0.0-2.0 [facility] Comment on above: Order Comment: Speci men Type: ARTERIAL BLOOD SPECIMENOrdering Facility: [facility] Address: [address] [place] [address] Result Comment: Carb oxyhemoglobin Reference Range for Smokers: 2.0-8.0% Performed By: #### A LLBG ####[facility] LABCLIA [id number] [place] [address] [place] CO2 (Bld) [Partial pressure] 38 mm Hg Normal 36-46 [facility] Comment on above: Order Comment: Speci men Type: ARTERIAL BLOOD SPECIMENOrdering Facility: [facility] Address: [address] [place] [address] Performed By: #### A LLBG ####[facility] LABCLIA [id number] [place] [address] [place] FIO2 100 % Normal [facility] Comment on above: Order Comment: Speci men Type: ARTERIAL BLOOD SPECIMENOrdering Facility: [facility] Address: [address] [place] [address] Performed By: #### A LLBG ####[facility] LABCLIA [id number] [place] [address] [place] Glucose [Mass/Vol] 184 mg/dL High 60-105 [facility] Comment on above: Order Comment: Speci men Type: ARTERIAL BLOOD SPECIMENOrdering Facility: [facility] Address: [address] [place] [address] Performed By: #### A LLBG ####[facility] LABCLIA [id number] [place] [address] [place] HCO3 (Bld) [Moles/Vol] 19 mmol/L Low 22-26 [facility] Comment on above: Order Comment: Speci men Type: ARTERIAL BLOOD SPECIMENOrdering Facility: [facility] Address: [address] [place] [address] Performed By: #### A LLBG ####[facility] LABCLIA [id number] [place] [address] [place] Hematocrit (Bld) [Volume fraction] 40.7 % Normal 39.0-51.0 [facility] Comment on above: Order Comment: Speci men Type: ARTERIAL BLOOD SPECIMENOrdering Facility: [facility] Address: [address] [place] [address] Performed By: #### A LLBG ####[facility] LABCLIA [id number] [place] [id number] [place] Hemoglobin (Bld) [Mass/Vol] 13.2 g/dL Normal 13.0-17.0 [facility] Comment on above: Order Comment: Speci men Type: ARTERIAL BLOOD SPECIMENOrdering Facility: [facility] Address: [address] [place] [address] Performed By: #### A LLBG ####[facility] LABCLIA [id number] [place] [address] [place] Lactate [Moles/Vol] 4.2 mmol/L High 0.5-2.2 [facility] Comment on above: Order Comment: Speci men Type: ARTERIAL BLOOD SPECIMENOrdering Facility: [facility] Address: [address] [place] [address] Performed By: #### A LLBG ####[facility] LABCLIA [id number] [place] [address] [place] Methemoglobin (Bld) [Mass fraction] 0.8 % Normal 0.0-1.5 [facility] Comment on above: Order Comment: Speci men Type: ARTERIAL BLOOD SPECIMENOrdering Facility: [facility] Address: [address] [place] [address] Performed By: #### A LLBG ####[facility] LABCLIA [id number] [place] [address] [place] O2 THERAPY VENT=Ventilator Normal [facility] Comment on above: Order Comment: Speci men Type: ARTERIAL BLOOD SPECIMENOrdering Facility: [facility] Address: [address] [place] [address] Performed By: #### A LLBG ####[facility] LABCLIA [id number] [place] [address] [place] Oxygen (Bld) [Partial pressure] 334 mm Hg High 85-95 [facility] Comment on above: Order Comment: Speci men Type: ARTERIAL BLOOD SPECIMENOrdering Facility: [facility] Address: [address] [place] [address] Performed By: #### A LLBG ####[facility] LABCLIA [id number] [place] [address] [place] Oxyhemoglobin (BldA) [Mass fraction] 98 % Normal 95-98 [facility] Comment on above: Order Comment: Speci men Type: ARTERIAL BLOOD SPECIMENOrdering Facility: [facility] Address: [address] [place] [address] Performed By: #### A LLBG ####[facility] LABCLIA [id number] [place] [address] [place] pH (Bld) 7.33 [pH] Low 7.35-7.45 [facility] Comment on above: Order Comment: Speci men Type: ARTERIAL BLOOD SPECIMENOrdering Facility: [facility] Address: [address] [place] [address] Performed By: #### A LLBG ####[facility] LABCLIA [id number] [place] [address] [place] PO2 / FIO2 RATIO 334 mmHg Normal >300 [facility] Comment on above: Order Comment: Speci men Type: ARTERIAL BLOOD SPECIMENOrdering Facility: [facility] Address: [address] [place] [address] Performed By: #### A LLBG ####[facility] LABIA [id number] [place] [address] [place] Potassium [Moles/Vol] 3.6 mmol/L Normal 3.5-5.0 [facility] Comment on above: Order Comment: Speci men Type: ARTERIAL BLOOD SPECIMENOrdering Facility: [facility] Address: [address] [place] [address] Performed By: #### A LLBG ####[facility] LABIA [id number] [place] [address] [place] Sodium [Moles/Vol] 140 mmol/L Normal 136-144 [facility] Comment on above: Order Comment: Speci men Type: ARTERIAL BLOOD SPECIMENOrdering Facility: [facility] Address: [address] [place] [address] Performed By: #### A LLBG ####[facility] LABIA [id number] [place] [address] [place] Base deficit (BldA) [Moles/Vol] -5 mmol/L Low -2-0 [facility] Comment on above: Order Comment: Speci men Type: ARTERIAL BLOOD SPECIMENOrdering Facility: [facility] Address: [address] [place] [address] Performed By: #### A LLBG ####[facility] LABIA [id number] [place] [address] [place] Body temperature 98.6 [degF] Normal [facility] Comment on above: Order Comment: Speci men Type: ARTERIAL BLOOD SPECIMENOrdering Facility: [facility] Address: [address] [place] [address] Performed By: #### A LLBG ####[facility] LABIA [id number] [place] [address] [place] Calcium.ionized (Bld) [Mass/Vol] 1.22 mmol/L Normal 1.08-1.30 [facility] Comment on above: Order Comment: Speci men Type: ARTERIAL BLOOD SPECIMENOrdering Facility: [facility] Address: [address] [place] [address] Performed By: #### A LLBG ####[facility] LABIA [id number] [place] [address] [place] Calcium.ionized adjusted to pH 7.4 (BldA) [Moles/Vol] 1.11 mmol/L Normal 1.08-1.30 [facility] Comment on above: Order Comment: Speci men Type: ARTERIAL BLOOD SPECIMENOrdering Facility: [facility] Address: [address] [place], [place] [address] Performed By: #### A LLBG ####[facility] LABCLIA [id number] [place] [address] [place] Carboxyhemoglobin (BldA) [Mass fraction] 1.3 % Normal 0.0-2.0 [facility] Comment on above: Order Comment: Speci men Type: ARTERIAL BLOOD SPECIMENOrdering Facility: [facility] Address: [address] [place] [address] Result Comment: Carb oxyhemoglobin Reference Range for Smokers: 2.0-8.0% Performed By: #### A LLBG ####[facility] LABCLIA [id number] [place] [address] [place] CO2 (Bld) [Partial pressure] 54 mm Hg High 36-46 [facility] Comment on above: Order Comment: Speci men Type: ARTERIAL BLOOD SPECIMENOrdering Facility: [facility] Address: [address] [place] [address] Performed By: #### A LLBG ####[facility] LABCLIA [id number] [place] [address] [place] FIO2 100 % Normal [facility] Comment on above: Order Comment: Speci men Type: ARTERIAL BLOOD SPECIMENOrdering Facility: [facility] Address: [address] [place] [address] Performed By: #### A LLBG ####[facility] LABCLIA [id number] [place] [address] [place] Glucose [Mass/Vol] 198 mg/dL High 60-105 [facility] Comment on above: Order Comment: Speci men Type: ARTERIAL BLOOD SPECIMENOrdering Facility: [facility] Address: [address] [place] [address] Performed By: #### A LLBG ####[facility] LABCLIA [id number] [place] [address] [place] HCO3 (Bld) [Moles/Vol] 22 mmol/L Normal 22-26 [facility] Comment on above: Order Comment: Speci men Type: ARTERIAL BLOOD SPECIMENOrdering Facility: [facility] Address: [address] [place] [address] Performed By: #### A LLBG ####[facility] LABIA [id number] [place] [address] [place] Hematocrit (Bld) [Volume fraction] 39.3 % Normal 39.0-51.0 [facility] Comment on above: Order Comment: Speci men Type: ARTERIAL BLOOD SPECIMENOrdering Facility: [facility] Address: [address] [place] [address] Performed By: #### A LLBG ####[facility] LABIA [id number] [place] [address] [place] Hemoglobin (Bld) [Mass/Vol] 12.8 g/dL Low 13.0-17.0 [facility] Comment on above: Order Comment: Speci men Type: ARTERIAL BLOOD SPECIMENOrdering Facility: [facility] Address: [address] [place] [address] Performed By: #### A LLBG ####[facility] LABIA [id number] [place] [address] [place] Lactate [Moles/Vol] 3.7 mmol/L High 0.5-2.2 [facility] Comment on above: Order Comment: Speci men Type: ARTERIAL BLOOD SPECIMENOrdering Facility: [facility] Address: [address] [place] [address] Performed By: #### A LLBG ####[facility] LABIA [id number] [place] [address] [place] Methemoglobin (Bld) [Mass fraction] 0.8 % Normal 0.0-1.5 [facility] Comment on above: Order Comment: Speci men Type: ARTERIAL BLOOD SPECIMENOrdering Facility: [facility] Address: [address] [place] [id number] Performed By: #### A LLBG ####[facility] LABCLIA [id number] [place] [address] [place] O2 THERAPY VENT=Ventilator Normal [facility] Comment on above: Order Comment: Speci men Type: ARTERIAL BLOOD SPECIMENOrdering Facility: [facility] Address: [address] [place] [address] Performed By: #### A LLBG ####[facility] LABCLIA [id number] [place] [address] [place] Oxygen (Bld) [Partial pressure] 135 mm Hg High 85-95 [facility] Comment on above: Order Comment: Speci men Type: ARTERIAL BLOOD SPECIMENOrdering Facility: [facility] Address: [address] [place] [address] Performed By: #### A LLBG ####[facility] LABCLIA [id number] [place] [address] [place] Oxyhemoglobin (BldA) [Mass fraction] 96 % Normal 95-98 [facility] Comment on above: Order Comment: Speci men Type: ARTERIAL BLOOD SPECIMENOrdering Facility: [facility] Address: [address] [place], [place] [address] Performed By: #### A LLBG ####[facility] LABCLIA [id number] [place] [address] [place] pH (Bld) 7.24 [pH] Low 7.35-7.45 [facility] Comment on above: Order Comment: Speci men Type: ARTERIAL BLOOD SPECIMENOrdering Facility: [facility] Address: [address] [place], [place] [address] Performed By: #### A LLBG ####[facility] LABCLIA [id number] [place] [id number] [place] PO2 / FIO2 RATIO 135 mmHg Low >300 [facility] Comment on above: Order Comment: Speci men Type: ARTERIAL BLOOD SPECIMENOrdering Facility: [facility] Address: [address] [place] [id number] Performed By: #### A LLBG ####[facility] LABCLIA [id number] [place] [id number] [place] Potassium [Moles/Vol] 3.9 mmol/L Normal 3.5-5.0 [facility] Comment on above: Order Comment: Speci men Type: ARTERIAL BLOOD SPECIMENOrdering Facility: [facility] Address: [address] [place] [address] Performed By: #### A LLBG ####[facility] LABCLIA [id number] [place] [address] [place] Sodium [Moles/Vol] 140 mmol/L Normal 136-144 [facility] Comment on above: Order Comment: Speci men Type: ARTERIAL BLOOD SPECIMENOrdering Facility: [facility] Address: [address] [place], [place] [address] Performed By: #### A LLBG ####[facility] LABCLIA [id number] [place] [address] [place] Base deficit (BldA) [Moles/Vol] -2 mmol/L Normal -2-0 [facility] Comment on above: Order Comment: Speci men Type: ARTERIAL BLOOD SPECIMENOrdering Facility: [facility] Address: [address] [place], [place] [address] Performed By: #### A LLBG ####[facility] LABCLIA [id number] [place] [address] [place] Body temperature 98.6 [degF] Normal [facility] Comment on above: Order Comment: Speci men Type: ARTERIAL BLOOD SPECIMENOrdering Facility: [facility] Address: [address] [place], [place] [id number] Performed By: #### A LLBG ####[facility] LABCLIA [id number] [place] [address] [place] Calcium.ionized (Bld) [Mass/Vol] 1.23 mmol/L Normal 1.08-1.30 [facility] Comment on above: Order Comment: Speci men Type: ARTERIAL BLOOD SPECIMENOrdering Facility: [facility] Address: [address] [place] [address] Performed By: #### A LLBG ####[facility] LABCLIA [id number] [place] [address] [place] Calcium.ionized adjusted to pH 7.4 (BldA) [Moles/Vol] 1.18 mmol/L Normal 1.08-1.30 [facility] Comment on above: Order Comment: Speci men Type: ARTERIAL BLOOD SPECIMENOrdering Facility: [facility] Address: [address] [place] [address] Performed By: #### A LLBG ####[facility] LABIA [id number] [place] [address] [place] Carboxyhemoglobin (BldA) [Mass fraction] 1.3 % Normal 0.0-2.0 [facility] Comment on above: Order Comment: Speci men Type: ARTERIAL BLOOD SPECIMENOrdering Facility: [facility] Address: [address] [place] [address] Result Comment: Carb oxyhemoglobin Reference Range for Smokers: 2.0-8.0% Performed By: #### A LLBG ####[facility] LABCLIA [id number] [place] [address] [place] CO2 (Bld) [Partial pressure] 48 mm Hg High 36-46 [facility] Comment on above: Order Comment: Speci men Type: ARTERIAL BLOOD SPECIMENOrdering Facility: [facility] Address: [address] [place] [address] Performed By: #### A LLBG ####[facility] LABIA [id number] [place] [address] [place] Glucose [Mass/Vol] 115 mg/dL High 60-105 [facility] Comment on above: Order Comment: Speci men Type: ARTERIAL BLOOD SPECIMENOrdering Facility: [facility] Address: [address] [place] [address] Performed By: #### A LLBG ####[facility] LABCLIA [id number] [place] [address] [place] HCO3 (Bld) [Moles/Vol] 24 mmol/L Normal 22-26 [facility] Comment on above: Order Comment: Speci men Type: ARTERIAL BLOOD SPECIMENOrdering Facility: [facility] Address: [address] [place] [address] Performed By: #### A LLBG ####[facility] LABCLIA [id number] [place] [address] [place] Hematocrit (Bld) [Volume fraction] 37.4 % Low 39.0-51.0 [facility] Comment on above: Order Comment: Speci men Type: ARTERIAL BLOOD SPECIMENOrdering Facility: [facility] Address: [address] [place] [address] Performed By: #### A LLBG ####[facility] LABCLIA [id number] [place] [address] [place] Hemoglobin (Bld) [Mass/Vol] 12.1 g/dL Low 13.0-17.0 [facility] Comment on above: Order Comment: Speci men Type: ARTERIAL BLOOD SPECIMENOrdering Facility: [facility] Address: [address] [place] [address] Performed By: #### A LLBG ####[facility] LABCLIA [id number] [place] [address] [place] Lactate [Moles/Vol] 2.1 mmol/L Normal 0.5-2.2 [facility] Comment on above: Order Comment: Speci men Type: ARTERIAL BLOOD SPECIMENOrdering Facility: [facility] Address: [address] [place] [address] Performed By: #### A LLBG ####[facility] LABCLIA [id number] [place] [address] [place] Methemoglobin (Bld) [Mass fraction] 1.0 % Normal 0.0-1.5 [facility] Comment on above: Order Comment: Speci men Type: ARTERIAL BLOOD SPECIMENOrdering Facility: [facility] Address: [address] [place] [address] Performed By: #### A LLBG ####[facility] LABCLIA [id number] [place] [address] [place] O2 THERAPY VENT=Ventilator Normal [facility] Comment on above: Order Comment: Speci men Type: ARTERIAL BLOOD SPECIMENOrdering Facility: [facility] Address: [address] [place] [address] Performed By: #### A LLBG ####[facility] LABCLIA [id number] [place] [address] [place] Oxygen (Bld) [Partial pressure] 167 mm Hg High 85-95 [facility] Comment on above: Order Comment: Speci men Type: ARTERIAL BLOOD SPECIMENOrdering Facility: [facility] Address: [address] [place] [address] Performed By: #### A LLBG ####[facility] LABCLIA [id number] [place] [address] [place] Oxyhemoglobin (BldA) [Mass fraction] 97 % Normal 95-98 [facility] Comment on above: Order Comment: Speci men Type: ARTERIAL BLOOD SPECIMENOrdering Facility: [facility] Address: [address] [place] [address] Performed By: #### A LLBG ####[facility] LABCLIA [id number] [place] [id number] [place] pH (Bld) 7.32 [pH] Low 7.35-7.45 [facility] Comment on above: Order Comment: Speci men Type: ARTERIAL BLOOD SPECIMENOrdering Facility: [facility] Address: [address] [place] [address] Performed By: #### A LLBG ####[facility] LABCLIA [id number] [place] [address] [place] Potassium [Moles/Vol] 4.2 mmol/L Normal 3.5-5.0 [facility] Comment on above: Order Comment: Speci men Type: ARTERIAL BLOOD SPECIMENOrdering Facility: [facility] Address: [address] [place] [address] Performed By: #### A LLBG ####[facility] LABCLIA [id number] [place] [address] [place] Sodium [Moles/Vol] 139 mmol/L Normal 136-144 [facility] Comment on above: Order Comment: Speci men Type: ARTERIAL BLOOD SPECIMENOrdering Facility: [facility] Address: [address] [place] [address] Performed By: #### A LLBG ####[facility] LABCLIA [id number] [place] [address] [place] Base deficit (BldA) [Moles/Vol] -1 mmol/L Normal -2-0 [facility] Comment on above: Order Comment: Speci men Type: ARTERIAL BLOOD SPECIMENOrdering Facility: [facility] Address: [address] [place] [address] Performed By: #### A LLBG ####[facility] LABIA [id number] [place] [address] [place] Calcium.ionized (Bld) [Mass/Vol] 1.23 mmol/L Normal 1.08-1.30 [facility] Comment on above: Order Comment: Speci men Type: ARTERIAL BLOOD SPECIMENOrdering Facility: [facility] Address: [address] [place] [address] Performed By: #### A LLBG ####[facility] LABCLIA [id number] [place] [address] [place] Calcium.ionized adjusted to pH 7.4 (BldA) [Moles/Vol] 1.21 mmol/L Normal 1.08-1.30 [facility] Comment on above: Order Comment: Speci men Type: ARTERIAL BLOOD SPECIMENOrdering Facility: [facility] Address: [address] [place] [address] Performed By: #### A LLBG ####[facility] LABIA [id number] [place] [address] [place] Carboxyhemoglobin (BldA) [Mass fraction] 1.9 % Normal 0.0-2.0 [facility] Comment on above: Order Comment: Speci men Type: ARTERIAL BLOOD SPECIMENOrdering Facility: [facility] Address: [address] [place] [address] Result Comment: Carb oxyhemoglobin Reference Range for Smokers: 2.0-8.0% Performed By: #### A LLBG ####[facility] LABIA [id number] [place] [address] [place] CO2 (Bld) [Partial pressure] 43 mm Hg Normal 36-46 [facility] Comment on above: Order Comment: Speci men Type: ARTERIAL BLOOD SPECIMENOrdering Facility: [facility] Address: [address] [place] [address] Performed By: #### A LLBG ####[facility] LABCLIA [id number] [place] [address] [place] CO2 adjusted to patient's actual temperature (Bld) [Partial pressure] 43 mmHg Normal 36-46 [facility] Comment on above: Order Comment: Speci men Type: ARTERIAL BLOOD SPECIMENOrdering Facility: [facility] Address: [address] [place] [address] Performed By: #### A LLBG ####[facility] LABCLIA [id number] [place] [address] [place] Glucose [Mass/Vol] 133 mg/dL High 60-105 [facility] Comment on above: Order Comment: Speci men Type: ARTERIAL BLOOD SPECIMENOrdering Facility: [facility] Address: [address] [place] [address] Performed By: #### A LLBG ####[facility] LABCLIA [id number] [place] [address] [place] HCO3 (Bld) [Moles/Vol] 24 mmol/L Normal 22-26 [facility] Comment on above: Order Comment: Speci men Type: ARTERIAL BLOOD SPECIMENOrdering Facility: [facility] Address: [address] [place] [address] Performed By: #### A LLBG ####[facility] LABCLIA [id number] [place] [address] [place] Hematocrit (Bld) [Volume fraction] 36.4 % Low 39.0-51.0 [facility] Comment on above: Order Comment: Speci men Type: ARTERIAL BLOOD SPECIMENOrdering Facility: [facility] Address: [address] [place] [address] Performed By: #### A LLBG ####[facility] LABCLIA [id number] [place] [address] [place] Hemoglobin (Bld) [Mass/Vol] 11.8 g/dL Low 13.0-17.0 [facility] Comment on above: Order Comment: Speci men Type: ARTERIAL BLOOD SPECIMENOrdering Facility: [facility] Address: [address] [place] [address] Performed By: #### A LLBG ####[facility] LABCLIA [id number] [place] [address] [place] Lactate [Moles/Vol] 2.4 mmol/L High 0.5-2.2 [facility] Comment on above: Order Comment: Speci men Type: ARTERIAL BLOOD SPECIMENOrdering Facility: [facility] Address: [address] [place] [address] Performed By: #### A LLBG ####[facility] LABCLIA [id number] [address] [address] [place] Methemoglobin (Bld) [Mass fraction] 1.0 % Normal 0.0-1.5 [facility] Comment on above: Order Comment: Speci men Type: ARTERIAL BLOOD SPECIMENOrdering Facility: [facility] Address: [address] [place] [id number] Performed By: #### A LLBG ####[facility] LABCLIA [id number] [place] [address] [place] Oxygen (Bld) [Partial pressure] 246 mm Hg High 85-95 [facility] Comment on above: Order Comment: Speci men Type: ARTERIAL BLOOD SPECIMENOrdering Facility: [facility] Address: [address] [place] [id number] Performed By: #### A LLBG ####[facility] LABCLIA [id number] [place] [address] [place] Oxygen adjusted to patient's actual temperature (Bld) [Partial pressure] 246 mmHg High 85-95 [facility] Comment on above: Order Comment: Speci men Type: ARTERIAL BLOOD SPECIMENOrdering Facility: [facility] Address: [address] [place] [id number] Performed By: #### A LLBG ####[facility] LABCLIA [id number] [address] [address] [place] Oxyhemoglobin (BldA) [Mass fraction] 97 % Normal 95-98 [facility] Comment on above: Order Comment: Speci men Type: ARTERIAL BLOOD SPECIMENOrdering Facility: [facility] Address: [address] [place] [id number] Performed By: #### A LLBG ####[facility] LABCLIA [id number] [place] [address] [place] pH (Bld) 7.36 [pH] Normal 7.35-7.45 [facility] Comment on above: Order Comment: Speci men Type: ARTERIAL BLOOD SPECIMENOrdering Facility: [facility] Address: [address] [place] [address] Performed By: #### A LLBG ####[facility] LABCLIA [id number] [place] [address] [place] pH adjusted to patient's actual temperature (Bld) 7.36 Normal 7.35-7.45 [facility] Comment on above: Order Comment: Speci men Type: ARTERIAL BLOOD SPECIMENOrdering Facility: [facility] Address: [address] [place] [address] Performed By: #### A LLBG ####[facility] LABIA [id number] [place] [address] [place] Potassium [Moles/Vol] 4.6 mmol/L Normal 3.5-5.0 [facility] Comment on above: Order Comment: Speci men Type: ARTERIAL BLOOD SPECIMENOrdering Facility: [facility] Address: [address] [place] [address] Performed By: #### A LLBG ####[facility] LABIA [id number] [place] [address] [place] Sodium [Moles/Vol] 140 mmol/L Normal 136-144 [facility] Comment on above: Order Comment: Speci men Type: ARTERIAL BLOOD SPECIMENOrdering Facility: [facility] Address: [address] [place] [address] Performed By: #### A LLBG ####[facility] LABCLIA [id number] [place] [address] [place] Base deficit (BldA) [Moles/Vol] -1 mmol/L Normal -2-0 [facility] Comment on above: Order Comment: Speci men Type: ARTERIAL BLOOD SPECIMENOrdering Facility: [facility] Address: [address] [place] [address] Performed By: #### A LLBG ####[facility] LABIA [id number] [place] [address] [place] Calcium.ionized (Bld) [Mass/Vol] 1.17 mmol/L Normal 1.08-1.30 [facility] Comment on above: Order Comment: Speci men Type: ARTERIAL BLOOD SPECIMENOrdering Facility: [facility] Address: [address] [place] [address] Performed By: #### A LLBG ####[facility] LABIA [id number] [place] [address] [place] Calcium.ionized adjusted to pH 7.4 (BldA) [Moles/Vol] 1.16 mmol/L Normal 1.08-1.30 [facility] Comment on above: Order Comment: Speci men Type: ARTERIAL BLOOD SPECIMENOrdering Facility: [facility] Address: [address] [place] [address] Performed By: #### A LLBG ####[facility] LABIA [id number] [place] [address] [place] Carboxyhemoglobin (BldA) [Mass fraction] 1.6 % Normal 0.0-2.0 [facility] Comment on above: Order Comment: Speci men Type: ARTERIAL BLOOD SPECIMENOrdering Facility: [facility] Address: [address] [place] [address] Result Comment: Carb oxyhemoglobin Reference Range for Smokers: 2.0-8.0% Performed By: #### A LLBG ####[facility] LABIA [id number] [place] [address] [place] CO2 (Bld) [Partial pressure] 41 mm Hg Normal 36-46 [facility] Comment on above: Order Comment: Speci men Type: ARTERIAL BLOOD SPECIMENOrdering Facility: [facility] Address: [address] [place] [address] Performed By: #### A LLBG ####[facility] LABCLIA [id number] [place] [address] [place] CO2 adjusted to patient's actual temperature (Bld) [Partial pressure] 41 mmHg Normal 36-46 [facility] Comment on above: Order Comment: Speci men Type: ARTERIAL BLOOD SPECIMENOrdering Facility: [facility] Address: [address] [place] [address] Performed By: #### A LLBG ####[facility] LABCLIA [id number] [place] [address] [place] Glucose [Mass/Vol] 158 mg/dL High 60-105 [facility] Comment on above: Order Comment: Speci men Type: ARTERIAL BLOOD SPECIMENOrdering Facility: [facility] Address: [address] [place] [address] Performed By: #### A LLBG ####[facility] LABCLIA [id number] [place] [address] [place] HCO3 (Bld) [Moles/Vol] 24 mmol/L Normal 22-26 [facility] Comment on above: Order Comment: Speci men Type: ARTERIAL BLOOD SPECIMENOrdering Facility: [facility] Address: [address] [place] [address] Performed By: #### A LLBG ####[facility] LABCLIA [id number] [place] [address] [place] Hematocrit (Bld) [Volume fraction] 31.8 % Low 39.0-51.0 [facility] Comment on above: Order Comment: Speci men Type: ARTERIAL BLOOD SPECIMENOrdering Facility: [facility] Address: [address] [place] [address] Performed By: #### A LLBG ####[facility] LABCLIA [id number] [place] [address] [place] Hemoglobin (Bld) [Mass/Vol] 10.3 g/dL Low 13.0-17.0 [facility] Comment on above: Order Comment: Speci men Type: ARTERIAL BLOOD SPECIMENOrdering Facility: [facility] Address: [address] [place] [address] Performed By: #### A LLBG ####[facility] LABCLIA [id number] [place] [address] [place] Lactate [Moles/Vol] 2.8 mmol/L High 0.5-2.2 [facility] Comment on above: Order Comment: Speci men Type: ARTERIAL BLOOD SPECIMENOrdering Facility: [facility] Address: [address] [place] [address] Performed By: #### A LLBG ####[facility] LABCLIA [id number] [address] [place] Methemoglobin (Bld) [Mass fraction] 0.9 % Normal 0.0-1.5 [facility] Comment on above: Order Comment: Speci men Type: ARTERIAL BLOOD SPECIMENOrdering Facility: [facility] Address: [address] [place] [address] Performed By: #### A LLBG ####[facility] LABCLIA [id number] [place] [id number] [place] Oxygen (Bld) [Partial pressure] 277 mm Hg High 85-95 [facility] Comment on above: Order Comment: Speci men Type: ARTERIAL BLOOD SPECIMENOrdering Facility: [facility] Address: [address] [place] [address] Performed By: #### A LLBG ####[facility] LABCLIA [id number] [place] [address] [place] Oxygen adjusted to patient's actual temperature (Bld) [Partial pressure] 277 mmHg High 85-95 [facility] Comment on above: Order Comment: Speci men Type: ARTERIAL BLOOD SPECIMENOrdering Facility: [facility] Address: [address] [place] [address] Performed By: #### A LLBG ####[facility] LABCLIA [id number] [place] [address] [place] Oxyhemoglobin (BldA) [Mass fraction] 98 % Normal 95-98 [facility] Comment on above: Order Comment: Speci men Type: ARTERIAL BLOOD SPECIMENOrdering Facility: [facility] Address: [address] [place] [address] Performed By: #### A LLBG ####[facility] LABIA [id number] [place] [address] [place] pH (Bld) 7.38 [pH] Normal 7.35-7.45 [facility] Comment on above: Order Comment: Speci men Type: ARTERIAL BLOOD SPECIMENOrdering Facility: [facility] Address: [address] [place] [address] Performed By: #### A LLBG ####[facility] LABIA [id number] [place] [address] [place] pH adjusted to patient's actual temperature (Bld) 7.38 Normal 7.35-7.45 [facility] Comment on above: Order Comment: Speci men Type: ARTERIAL BLOOD SPECIMENOrdering Facility: [facility] Address: [address] [place] [address] Performed By: #### A LLBG ####[facility] LABIA [id number] [place] [address] [place] Potassium [Moles/Vol] 4.9 mmol/L Normal 3.5-5.0 [facility] Comment on above: Order Comment: Speci men Type: ARTERIAL BLOOD SPECIMENOrdering Facility: [facility] Address: [address] [place] [address] Performed By: #### A LLBG ####[facility] LABIA [id number] [place] [id number] [place] Sodium [Moles/Vol] 137 mmol/L Normal 136-144 [facility] Comment on above: Order Comment: Speci men Type: ARTERIAL BLOOD SPECIMENOrdering Facility: [facility] Address: [address] [place] [address] Performed By: #### A LLBG ####[facility] LABIA [id number] [place] [address] [place] Base excess Calc (Bld) [Moles/Vol] 0 mmol/L Normal 0-2 [facility] Comment on above: Order Comment: Speci men Type: ARTERIAL BLOOD SPECIMENOrdering Facility: [facility] Address: [address] [place] [address] Performed By: #### A LLBG ####[facility] LABIA [id number] [place] [address] [place] Calcium.ionized (Bld) [Mass/Vol] 1.27 mmol/L Normal 1.08-1.30 [facility] Comment on above: Order Comment: Speci men Type: ARTERIAL BLOOD SPECIMENOrdering Facility: [facility] Address: [address] [place] [address] Performed By: #### A LLBG ####[facility] LABIA [id number] [place] [address] [place] Calcium.ionized adjusted to pH 7.4 (BldA) [Moles/Vol] 1.24 mmol/L Normal 1.08-1.30 [facility] Comment on above: Order Comment: Speci men Type: ARTERIAL BLOOD SPECIMENOrdering Facility: [facility] Address: [address] [place] [address] Performed By: #### A LLBG ####[facility] LABIA [id number] [place] [address] [place] Carboxyhemoglobin (BldA) [Mass fraction] 1.8 % Normal 0.0-2.0 [facility] Comment on above: Order Comment: Speci men Type: ARTERIAL BLOOD SPECIMENOrdering Facility: [facility] Address: [address] [place] [address] Result Comment: Carb oxyhemoglobin Reference Range for Smokers: 2.0-8.0% Performed By: #### A LLBG ####[facility] LABCLIA [id number] [place] [address] [place] CO2 (Bld) [Partial pressure] 47 mm Hg High 36-46 [facility] Comment on above: Order Comment: Speci men Type: ARTERIAL BLOOD SPECIMENOrdering Facility: [facility] Address: [address] [place] [address] Performed By: #### A LLBG ####[facility] LABCLIA [id number] [place] [address] [place] CO2 adjusted to patient's actual temperature (Bld) [Partial pressure] 47 mmHg High 36-46 [facility] Comment on above: Order Comment: Speci men Type: ARTERIAL BLOOD SPECIMENOrdering Facility: [facility] Address: [address] [place] [address] Performed By: #### A LLBG ####[facility] LABCLIA [id number] [place] [address] [place] Glucose [Mass/Vol] 107 mg/dL High 60-105 [facility] Comment on above: Order Comment: Speci men Type: ARTERIAL BLOOD SPECIMENOrdering Facility: [facility] Address: [address] [place] [address] Performed By: #### A LLBG ####[facility] LABCLIA [id number] [place] [address] [place] HCO3 (Bld) [Moles/Vol] 26 mmol/L Normal 22-26 [facility] Comment on above: Order Comment: Speci men Type: ARTERIAL BLOOD SPECIMENOrdering Facility: [facility] Address: [address] [place] [address] Performed By: #### A LLBG ####[facility] LABCLIA [id number] [place] [address] [place] Hematocrit (Bld) [Volume fraction] 37.6 % Low 39.0-51.0 [facility] Comment on above: Order Comment: Speci men Type: ARTERIAL BLOOD SPECIMENOrdering Facility: [facility] Address: [address] [place] [address] Performed By: #### A LLBG ####[facility] LABIA [id number] [place] [address] [place] Hemoglobin (Bld) [Mass/Vol] 12.2 g/dL Low 13.0-17.0 [facility] Comment on above: Order Comment: Speci men Type: ARTERIAL BLOOD SPECIMENOrdering Facility: [facility] Address: [address] [place] [address] Performed By: #### A LLBG ####[facility] LABIA [id number] [place] [address] [place] Lactate [Moles/Vol] 1.8 mmol/L Normal 0.5-2.2 [facility] Comment on above: Order Comment: Speci men Type: ARTERIAL BLOOD SPECIMENOrdering Facility: [facility] Address: [address] [place] [address] Performed By: #### A LLBG ####[facility] LABIA [id number] [place] [address] [place] Methemoglobin (Bld) [Mass fraction] 0.7 % Normal 0.0-1.5 [facility] Comment on above: Order Comment: Speci men Type: ARTERIAL BLOOD SPECIMENOrdering Facility: [facility] Address: [address] [place] [address] Performed By: #### A LLBG ####[facility] LABIA [id number] [place] [address] [place] Oxygen (Bld) [Partial pressure] 121 mm Hg High 85-95 [facility] Comment on above: Order Comment: Speci men Type: ARTERIAL BLOOD SPECIMENOrdering Facility: [facility] Address: [address] [place] [address] Performed By: #### A LLBG ####[facility] LABCLIA [id number] [address] [address] [place] Oxygen adjusted to patient's actual temperature (Bld) [Partial pressure] 121 mmHg High 85-95 [facility] Comment on above: Order Comment: Speci men Type: ARTERIAL BLOOD SPECIMENOrdering Facility: [facility] Address: [address] [place] [address] Performed By: #### A LLBG ####[facility] LABCLIA [id number] [place] [address] [place] Oxyhemoglobin (BldA) [Mass fraction] 97 % Normal 95-98 [facility] Comment on above: Order Comment: Speci men Type: ARTERIAL BLOOD SPECIMENOrdering Facility: [facility] Address: [address] [place] [address] Performed By: #### A LLBG ####[facility] LABCLIA [id number] [place] [address] [place] pH (Bld) 7.35 [pH] Normal 7.35-7.45 [facility] Comment on above: Order Comment: Speci men Type: ARTERIAL BLOOD SPECIMENOrdering Facility: [facility] Address: [address] [place] [address] Performed By: #### A LLBG ####[facility] LABCLIA [id number] [place] [address] [place] pH adjusted to patient's actual temperature (Bld) 7.35 Normal 7.35-7.45 [facility] Comment on above: Order Comment: Speci men Type: ARTERIAL BLOOD SPECIMENOrdering Facility: [facility] Address: [address] [place] [address] Performed By: #### A LLBG ####[facility] LABCLIA [id number] [place] [address] [place] Potassium [Moles/Vol] 4.3 mmol/L Normal 3.5-5.0 [facility] Comment on above: Order Comment: Speci men Type: ARTERIAL BLOOD SPECIMENOrdering Facility: [facility] Address: [address] [place] [address] Performed By: #### A LLBG ####[facility] LABCLIA [id number] [place] [address] [place] Sodium [Moles/Vol] 141 mmol/L Normal 136-144 [facility] Comment on above: Order Comment: Speci men Type: ARTERIAL BLOOD SPECIMENOrdering Facility: [facility] Address: [address] [place] [address] Performed By: #### A LLBG ####[facility] LABIA [id number] [place] [address] [place] ARTERIAL BLOOD GASES WITH IO NIZED MAGNESIUMon 01-23-2024 Base deficit (BldA) [Moles/Vol] -1 mmol/L Normal -2-0 [facility] Comment on above: Order Comment: Speci men Type: ARTERIAL BLOOD SPECIMENOrdering Facility: [facility] Address: [address] [place] [address] Performed By: #### A LLMG ####[facility] LABIA [id number] [place] [address] [place] Calcium.ionized (Bld) [Mass/Vol] 1.22 mmol/L Normal 1.08-1.30 [facility] Comment on above: Order Comment: Speci men Type: ARTERIAL BLOOD SPECIMENOrdering Facility: [facility] Address: [address] [place] [address] Performed By: #### A LLMG ####[facility] LABIA [id number] [place] [address] [place] Calcium.ionized adjusted to pH 7.4 (BldA) [Moles/Vol] 1.19 mmol/L Normal 1.08-1.30 [facility] Comment on above: Order Comment: Speci men Type: ARTERIAL BLOOD SPECIMENOrdering Facility: [facility] Address: [address] [place] [address] Performed By: #### A LLMG ####[facility] LABCLIA [id number] [place] [address] [place] Carboxyhemoglobin (BldA) [Mass fraction] 1.7 % Normal 0.0-2.0 [facility] Comment on above: Order Comment: Speci men Type: ARTERIAL BLOOD SPECIMENOrdering Facility: [facility] Address: [address] [place] [address] Result Comment: Carb oxyhemoglobin Reference Range for Smokers: 2.0-8.0% Performed By: #### A LLMG ####[facility] LABCLIA [id number] [place] [address] [place] CO2 (Bld) [Partial pressure] 46 mm Hg Normal 36-46 [facility] Comment on above: Order Comment: Speci men Type: ARTERIAL BLOOD SPECIMENOrdering Facility: [facility] Address: [address] [place] [address] Performed By: #### A LLMG ####[facility] LABCLIA [id number] [place] [address] [place] CO2 adjusted to patient's actual temperature (Bld) [Partial pressure] 46 mmHg Normal 36-46 [facility] Comment on above: Order Comment: Speci men Type: ARTERIAL BLOOD SPECIMENOrdering Facility: [facility] Address: [address] [place] [address] Performed By: #### A LLMG ####[facility] LABCLIA [id number] [place] [address] [place] HCO3 (Bld) [Moles/Vol] 25 mmol/L Normal 22-26 [facility] Comment on above: Order Comment: Speci men Type: ARTERIAL BLOOD SPECIMENOrdering Facility: [facility] Address: [address] [place] [address] Performed By: #### A LLMG ####[facility] LABIA [id number] [place] [address] [place] Hematocrit (Bld) [Volume fraction] 33.9 % Low 39.0-51.0 [facility] Comment on above: Order Comment: Speci men Type: ARTERIAL BLOOD SPECIMENOrdering Facility: [facility] Address: [address] [place] [address] Performed By: #### A LLMG ####[facility] LABIA [id number] [place] [address] [place] Hemoglobin (Bld) [Mass/Vol] 11.0 g/dL Low 13.0-17.0 [facility] Comment on above: Order Comment: Speci men Type: ARTERIAL BLOOD SPECIMENOrdering Facility: [facility] Address: [address] [place] [address] Performed By: #### A LLMG ####[facility] LABIA [id number] [place] [address] [place] Lactate [Moles/Vol] 2.3 mmol/L High 0.5-2.2 [facility] Comment on above: Order Comment: Speci men Type: ARTERIAL BLOOD SPECIMENOrdering Facility: [facility] Address: [address] [place] [address] Performed By: #### A LLMG ####[facility] LABIA [id number] [place] [address] [place] Magnesium [Moles/Vol] 0.63 mmol/L High 0.45-0.60 [facility] Comment on above: Order Comment: Speci men Type: ARTERIAL BLOOD SPECIMENOrdering Facility: [facility] Address: [address] [place] [address] Performed By: #### A LLMG ####[facility] LABCLIA [id number] [place] [address] [place] Methemoglobin (Bld) [Mass fraction] 0.7 % Normal 0.0-1.5 [facility] Comment on above: Order Comment: Speci men Type: ARTERIAL BLOOD SPECIMENOrdering Facility: [facility] Address: [address] [place] [address] Performed By: #### A LLMG ####[facility] LABCLIA [id number] [place] [address] [place] Oxygen (Bld) [Partial pressure] 322 mm Hg High 85-95 [facility] Comment on above: Order Comment: Speci men Type: ARTERIAL BLOOD SPECIMENOrdering Facility: [facility] Address: [address] [place] [address] Performed By: #### A LLMG ####[facility] LABCLIA [id number] [place] [address] [place] Oxygen adjusted to patient's actual temperature (Bld) [Partial pressure] 322 mmHg High 85-95 [facility] Comment on above: Order Comment: Speci men Type: ARTERIAL BLOOD SPECIMENOrdering Facility: [facility] Address: [address] [place] [address] Performed By: #### A LLMG ####[facility] LABCLIA [id number] [place] [id number] [place] Oxyhemoglobin (BldA) [Mass fraction] 98 % Normal 95-98 [facility] Comment on above: Order Comment: Speci men Type: ARTERIAL BLOOD SPECIMENOrdering Facility: [facility] Address: [address] [place] [address] Performed By: #### A LLMG ####[facility] LABCLIA [id number] [place] [id number] [place] pH (Bld) 7.35 [pH] Normal 7.35-7.45 [facility] Comment on above: Order Comment: Speci men Type: ARTERIAL BLOOD SPECIMENOrdering Facility: [facility] Address: [address] [place] [address] Performed By: #### A LLMG ####[facility] LABCLIA [id number] [place] [address] [place] pH adjusted to patient's actual temperature (Bld) 7.35 Normal 7.35-7.45 [facility] Comment on above: Order Comment: Speci men Type: ARTERIAL BLOOD SPECIMENOrdering Facility: [facility] Address: [address] [place] [address] Performed By: #### A LLMG ####[facility] LABCLIA [id number] [place] [address] [place] CARDIAC IMPLANTABLE DEVICE C HECKOrdered By: Kristofer Light on 01-23-2024 Battery Remaining Longevity 11.0 [facility] Work Phone: Battery Status KEVIN [facility] Work Phone: David Setting AT Mode Switch Rate 170 [facility] Work Phone: David Setting Lower Rate Limit 90 [facility] Work Phone: David Setting Maximum Sensor Rate 115 [facility] Work Phone: David Setting Maximum Tracking Rate 130 [facility] Work Phone: David Setting Mode (NBG Code) DDDR [facility] Work Phone: David Setting PAV Delay 180 C [facility] Work Phone: David Setting NORIS Delay 180 C [facility] Work Phone: Date Time Interrogation Session [facility] Work Phone: Implantable Lead Location Right Ventricle [facility] Work Phone: Implantable Lead Location Right Atrium [facility] Work Phone: Implantable Lead Model 7742 Cl [facility] Work Phone: Implantable Lead Model 7741 Cl [facility] Work Phone: Implantable Lead Serial Number [id number] [facility] Work Phone: Implantable Lead Serial Number [id number] [facility] Work Phone: Implantable Pulse Generator Implant Date [id number] [facility] Work Phone: Implantable Pulse Generator Oncology Rn [facility] Work Phone: Implantable Pulse Generator Model L111 [facility] Work Phone: Implantable Pulse Generator Serial Number [id number] [facility] Work Phone: Implantable Pulse Generator Type Pacemaker [facility] Work Phone: Lead Channel Impedance Value 594 [facility] Work Phone: Lead Channel Impedance Value 598 [facility] Work Phone: Lead Channel Pacing Threshold Amplitude 1.300 [facility] Work Phone: Lead Channel Pacing Threshold Amplitude 1.400 [facility] Work Phone: Lead Channel Pacing Threshold Pulse Width 0.9 [facility] Work Phone: Lead Channel Pacing Threshold Pulse Width 0.4 [facility] Work Phone: Lead Channel Sensing Intrinsic Amplitude 1.100 [facility] Work Phone: Lead Channel Sensing Intrinsic Amplitude 8.100 [facility] Work Phone: Lead Channel Setting Pacing Amplitude 3.000 [facility] Work Phone: Lead Channel Setting Pacing Amplitude 2.800 [facility] Work Phone: Lead Channel Setting Pacing Pulse Width 0.9 [facility] Work Phone: Lead Channel Setting Pacing Pulse Width 0.4 [facility] Work Phone: Lead Channel Setting Sensing Sensitivity 0.25 [facility] Work Phone: Lead Channel Setting Sensing Sensitivity 2.50 [facility] Work Phone: Rate 1 185 [facility] Work Phone: Zone ID 1 [facility] Work Phone: Zone ID 2 [facility] Work Phone: Zone ID 3 [facility] Work Phone: Zone Setting Type Category VF [facility] Work Phone: Zone Setting Type Category VT [facility] Work Phone: Zone Setting Type Category VT1 [facility] Work Phone: [facility] Work Phone: CARDIAC IMPLANTABLE DEVICE C Marielos [...] Full Docket/PDF found below under Scanned Documents. [facility] CASE MGT INIT ASSESon 2023 CASE MGT INIT ASSES Normal [facility] ECG COMPLETEon 01-23-2024 ECG COMPLETE Normal [facility] Fibrinogen PPP-mCncon 2023 Fibrinogen Coag (PPP) [Mass/Vol] 265 mg/dL Normal 200-400 [facility] Comment on above: Order Comment: Speci men Type: BLOOD SPECIMENOrdering Facility: [facility] Address: [address] [place] [address] Performed By: #### 3 255-7 ####[facility] LABCLIA [id number] [place] [address] [place] Gas + CO Pnl BldVon 01-23-20 24 Body temperature 102.38 [degF] Normal [facility] Comment on above: Order Comment: Speci men Type: VENOUS BLOOD SPECIMENOrdering Facility: [facility] Address: [address] [place] [address] Performed By: #### 2 4344-4 ####[facility] LABCLIA [id number] [place] [address] [place] Order Comment: Speci men Type: ARTERIAL BLOOD SPECIMENOrdering Facility: [facility] Address: [address] [place] [address] Performed By: #### A LLBG ####[facility] LABCLIA [id number] [place] [address] [place] FIO2 30 % Normal [facility] Comment on above: Order Comment: Speci men Type: VENOUS BLOOD SPECIMENOrdering Facility: [facility] Address: [address] [place] [id number] Performed By: #### 2 4344-4 ####[facility] LABCLIA [id number] [address] [place] Order Comment: Speci men Type: ARTERIAL BLOOD SPECIMENOrdering Facility: [facility] Address: [address] [place] [id number] Performed By: #### A LLBG ####[facility] LABCLIA [id number] [place] [address] [place] HCO3 (Bld) [Moles/Vol] 23 mmol/L Normal 22-26 [facility] Comment on above: Order Comment: Speci men Type: VENOUS BLOOD SPECIMENOrdering Facility: [facility] Address: [address] [place] [address] Performed By: #### 2 4344-4 ####[facility] LABCLIA [id number] [address] [place] Order Comment: Speci men Type: ARTERIAL BLOOD SPECIMENOrdering Facility: [facility] Address: [address] [place] [address] Performed By: #### A LLBG ####[facility] LABCLIA [id number] [place] [address] [place] O2 THERAPY VENT=Ventilator Normal [facility] Comment on above: Order Comment: Speci men Type: VENOUS BLOOD SPECIMENOrdering Facility: [facility] Address: [address] [place] [phone] Performed By: #### 2 4344-4 ####[facility] LABCLIA [id number] [place] [id number] [place] Order Comment: Speci men Type: ARTERIAL BLOOD SPECIMENOrdering Facility: [facility] Address: [address] [place] [phone] Performed By: #### A LLBG ####[facility] LABCLIA [id number] [place] [id number] [place] PEEP/CPAP 8 cmH2O Normal [facility] Comment on above: Order Comment: Speci men Type: VENOUS BLOOD SPECIMENOrdering Facility: [facility] Address: [address] [place], [place] [address] Performed By: #### 2 4344-4 ####[facility] LABCLIA [id number] [place] [address] [place] Order Comment: Speci men Type: ARTERIAL BLOOD SPECIMENOrdering Facility: [facility] Address: [address] [place] [address] Performed By: #### A LLBG ####[facility] LABCLIA [id number] [address] [place] SET VENTILATOR RESPIRATORY RATE (BPM) 24 BPM Normal [facility] Comment on above: Order Comment: Speci men Type: VENOUS BLOOD SPECIMENOrdering Facility: [facility] Address: [address] [place], [place] [address] Performed By: #### 2 4344-4 ####[facility] LABCLIA [id number] [place] [address] [place] Order Comment: Speci men Type: ARTERIAL BLOOD SPECIMENOrdering Facility: [facility] Address: [address] [place], [place] [address] Performed By: #### A LLBG ####[facility] LABCLIA [id number] [place] [address] [place] Body temperature 101.66 [degF] Normal [facility] Comment on above: Order Comment: Speci men Type: VENOUS BLOOD SPECIMENOrdering Facility: [facility] Address: [address] [place], [place] [address] Performed By: #### 2 4344-4 ####[facility] LABCLIA [id number] [place] [address] [place] Order Comment: Speci men Type: ARTERIAL BLOOD SPECIMENOrdering Facility: [facility] Address: [address] [place] [phone] Performed By: #### A LLBG ####[facility] LABCLIA [id number] [place] [address] [place] FIO2 30 % Normal [facility] Comment on above: Order Comment: Speci men Type: VENOUS BLOOD SPECIMENOrdering Facility: [facility] Address: [address] [place] [address] Performed By: #### 2 4344-4 ####[facility] LABCLIA [id number] [place] [address] [place] Order Comment: Speci men Type: ARTERIAL BLOOD SPECIMENOrdering Facility: [facility] Address: [address] [place] [address] Performed By: #### A LLBG ####[facility] LABCLIA [id number] [place] [address] [place] O2 THERAPY VENT=Ventilator Normal [facility] Comment on above: Order Comment: Speci men Type: VENOUS BLOOD SPECIMENOrdering Facility: [facility] Address: [address] [place], [place] [address] Performed By: #### 2 4344-4 ####[facility] LABCLIA [id number] [place] [address] [place] Order Comment: Speci men Type: ARTERIAL BLOOD SPECIMENOrdering Facility: [facility] Address: [address] [place] [phone] Performed By: #### A LLBG ####[facility] LABCLIA [id number] [place] [address] [place] PEEP/CPAP 8 cmH2O Normal [facility] Comment on above: Order Comment: Speci men Type: VENOUS BLOOD SPECIMENOrdering Facility: [facility] Address: [address] [place] [phone] Performed By: #### 2 4344-4 ####[facility] LABCLIA [id number] [address] [address] [place] Order Comment: Speci men Type: ARTERIAL BLOOD SPECIMENOrdering Facility: [facility] Address: [address] [place] [address] Performed By: #### A LLBG ####[facility] LABCLIA [id number] [place] [address] [place] Body temperature 100.76 [degF] Normal [facility] Comment on above: Order Comment: Speci men Type: VENOUS BLOOD SPECIMENOrdering Facility: [facility] Address: [address] [place] [address] Performed By: #### 2 4344-4 ####[facility] LABCLIA [id number] [place] [address] [place] Order Comment: Speci men Type: ARTERIAL BLOOD SPECIMENOrdering Facility: [facility] Address: [address] [place] [address] Performed By: #### A LLBG ####[facility] LABCLIA [id number] [place] [address] [place] FIO2 30 % Normal [facility] Comment on above: Order Comment: Speci men Type: VENOUS BLOOD SPECIMENOrdering Facility: [facility] Address: [address] [place] [address] Performed By: #### 2 4344-4 ####[facility] LABCLIA [id number] [place] [id number] [place] Order Comment: Speci men Type: ARTERIAL BLOOD SPECIMENOrdering Facility: [facility] Address: [address] [place] [address] Performed By: #### A LLBG ####[facility] LABCLIA [id number] [place] [id number] [place] O2 THERAPY VENT=Ventilator Normal [facility] Comment on above: Order Comment: Speci men Type: VENOUS BLOOD SPECIMENOrdering Facility: [facility] Address: [address] [place] [address] Performed By: #### 2 4344-4 ####[facility] LABCLIA [id number] [address] [address] [place] Order Comment: Speci men Type: ARTERIAL BLOOD SPECIMENOrdering Facility: [facility] Address: [address] [place] [phone] Performed By: #### A LLBG ####[facility] LABCLIA [id number] [place] [id number] [place] PEEP/CPAP 8 cmH2O Normal [facility] Comment on above: Order Comment: Speci men Type: VENOUS BLOOD SPECIMENOrdering Facility: [facility] Address: [address] [place], [place] [address] Performed By: #### 2 4344-4 ####[facility] LABCLIA [id number] [address] [address] [place] Order Comment: Speci men Type: ARTERIAL BLOOD SPECIMENOrdering Facility: [facility] Address: [address] [place] [phone] Performed By: #### A LLBG ####[facility] LABCLIA [id number] [place] [id number] [place] SET VENTILATOR RESPIRATORY RATE (BPM) 34 BPM Normal [facility] Comment on above: Order Comment: Speci men Type: VENOUS BLOOD SPECIMENOrdering Facility: [facility] Address: [address] [place] [phone] Performed By: #### 2 4344-4 ####[facility] LABCLIA [id number] [place] [id number] [place] Order Comment: Speci men Type: ARTERIAL BLOOD SPECIMENOrdering Facility: [facility] Address: [address] [place] [phone] Performed By: #### A LLBG ####[facility] LABCLIA [id number] [address] [address] [place] Gas and Carbon monoxide pane l (BldV)on 01-23-2024 BASE DEFICIT, VENOUS -2 mmol/L Normal -2-0 [facility] Comment on above: Order Comment: Speci men Type: VENOUS BLOOD SPECIMENOrdering Facility: [facility] Address: [address] [place] [address] Performed By: #### 2 4344-4 ####[facility] LABIA [id number] [place] [address] [place] Calcium.ionized (Bld) [Mass/Vol] 1.17 mmol/L Normal 1.08-1.30 [facility] Comment on above: Order Comment: Speci men Type: VENOUS BLOOD SPECIMENOrdering Facility: [facility] Address: [address] [place] [address] Performed By: #### 2 4344-4 ####[facility] LABIA [id number] [place] [address] [place] Calcium.ionized adjusted to pH 7.4 (BldA) [Moles/Vol] 1.15 mmol/L Normal 1.08-1.30 [facility] Comment on above: Order Comment: Speci men Type: VENOUS BLOOD SPECIMENOrdering Facility: [facility] Address: [address] [place] [address] Performed By: #### 2 4344-4 ####[facility] LABIA [id number] [address] [address] [place] Carboxyhemoglobin (BldV) [Mass fraction] 1.5 % Normal 0.0-2.0 [facility] Comment on above: Order Comment: Speci men Type: VENOUS BLOOD SPECIMENOrdering Facility: [facility] Address: [address] [place] [address] Result Comment: Carb oxyhemoglobin Reference Range for Smokers: 2.0-8.0% Performed By: #### 2 4344-4 ####[facility] LABCLIA [id number] [place] [address] [place] CO2 (BldV) [Partial pressure] 40 mm[Hg] Low 42-55 [facility] Comment on above: Order Comment: Speci men Type: VENOUS BLOOD SPECIMENOrdering Facility: [facility] Address: [address] [place] [address] Performed By: #### 2 4344-4 ####[facility] LABCLIA [id number] [place] [address] [place] CO2 adjusted to patient's actual temperature (BldV) [Partial pressure] 44 mmHg Normal 42-55 [facility] Comment on above: Order Comment: Speci men Type: VENOUS BLOOD SPECIMENOrdering Facility: [facility] Address: [address] [place] [address] Performed By: #### 2 4344-4 ####[facility] LABCLIA [id number] [place] [address] [place] Glucose [Mass/Vol] 125 mg/dL High 60-105 [facility] Comment on above: Order Comment: Speci men Type: VENOUS BLOOD SPECIMENOrdering Facility: [facility] Address: [address] [place] [address] Performed By: #### 2 4344-4 ####[facility] LABIA [id number] [place] [address] [place] Hematocrit (Bld) [Volume fraction] 33.1 % Low 39.0-51.0 [facility] Comment on above: Order Comment: Speci men Type: VENOUS BLOOD SPECIMENOrdering Facility: [facility] Address: [address] [place] [address] Performed By: #### 2 4344-4 ####[facility] LABCLIA [id number] [place] [address] [place] Hemoglobin (Bld) [Mass/Vol] 10.7 g/dL Low 13.0-17.0 [facility] Comment on above: Order Comment: Speci men Type: VENOUS BLOOD SPECIMENOrdering Facility: [facility] Address: [address] [place] [address] Performed By: #### 2 4344-4 ####[facility] LABCLIA [id number] [place] [address] [place] Lactate [Moles/Vol] 4.5 mmol/L High 0.5-2.2 [facility] Comment on above: Order Comment: Speci men Type: VENOUS BLOOD SPECIMENOrdering Facility: [facility] Address: [address] [place] [address] Performed By: #### 2 4344-4 ####[facility] LABCLIA [id number] [place] [address] [place] Methemoglobin (Bld) [Mass fraction] 0.7 % Normal 0.0-1.5 [facility] Comment on above: Order Comment: Speci men Type: VENOUS BLOOD SPECIMENOrdering Facility: [facility] Address: [address] [place] [address] Performed By: #### 2 4344-4 ####[facility] LABCLIA [id number] [place] [address] [place] Oxygen (BldV) [Partial pressure] 48 mm[Hg] High 35-45 [facility] Comment on above: Order Comment: Speci men Type: VENOUS BLOOD SPECIMENOrdering Facility: [facility] Address: [address] [place] [address] Performed By: #### 2 4344-4 ####[facility] LABCLIA [id number] [place] [address] [place] Oxygen adjusted to patient's actual temperature (BldV) [Partial pressure] 56 mmHg High 35-45 [facility] Comment on above: Order Comment: Speci men Type: VENOUS BLOOD SPECIMENOrdering Facility: [facility] Address: [address] [place] [address] Performed By: #### 2 4344-4 ####[facility] LABCLIA [id number] [address] [address] [place] Oxygen saturation in Venous blood 86 % High 60-85 [facility] Comment on above: Order Comment: Speci men Type: VENOUS BLOOD SPECIMENOrdering Facility: [facility] Address: [address] [place], [place] [address] Performed By: #### 2 4344-4 ####[facility] LABCLIA [id number] [address] [address] [place] Oxyhemoglobin (BldV) [Mass fraction] 84 % Normal 60-85 [facility] Comment on above: Order Comment: Speci men Type: VENOUS BLOOD SPECIMENOrdering Facility: [facility] Address: [address] [place] [address] Performed By: #### 2 4344-4 ####[facility] LABCLIA [id number] [place] [address] [place] pH (BldV) 7.38 [pH] Normal 7.32-7.42 [facility] Comment on above: Order Comment: Speci men Type: VENOUS BLOOD SPECIMENOrdering Facility: [facility] Address: [address] [place], [place] [address] Performed By: #### 2 4344-4 ####[facility] LABCLIA [id number] [place] [address] [place] pH adjusted to patient's actual temperature (BldV) 7.35 Normal 7.32-7.42 [facility] Comment on above: Order Comment: Speci men Type: VENOUS BLOOD SPECIMENOrdering Facility: [facility] Address: [address] [place], [place] [address] Performed By: #### 2 4344-4 ####[facility] LABCLIA [id number] [place] [address] [place] Potassium [Moles/Vol] 4.4 mmol/L Normal 3.5-5.0 [facility] Comment on above: Order Comment: Speci men Type: VENOUS BLOOD SPECIMENOrdering Facility: [facility] Address: [address] [place] [address] Performed By: #### 2 4344-4 ####[facility] LABCLIA [id number] [place] [address] [place] Sodium [Moles/Vol] 140 mmol/L Normal 136-144 [facility] Comment on above: Order Comment: Speci men Type: VENOUS BLOOD SPECIMENOrdering Facility: [facility] Address: [address] [place] [address] Performed By: #### 2 4344-4 ####[facility] LABCLIA [id number] [place] [address] [place] BASE DEFICIT, VENOUS -1 mmol/L Normal -2-0 [facility] Comment on above: Order Comment: Speci men Type: VENOUS BLOOD SPECIMENOrdering Facility: [facility] Address: [address] [place] [address] Performed By: #### 2 4344-4 ####[facility] LABCLIA [id number] [place] [address] [place] Calcium.ionized (Bld) [Mass/Vol] 1.23 mmol/L Normal 1.08-1.30 [facility] Comment on above: Order Comment: Speci men Type: VENOUS BLOOD SPECIMENOrdering Facility: [facility] Address: [address] [place] [address] Performed By: #### 2 4344-4 ####[facility] LABCLIA [id number] [place] [address] [place] Calcium.ionized adjusted to pH 7.4 (BldA) [Moles/Vol] 1.21 mmol/L Normal 1.08-1.30 [facility] Comment on above: Order Comment: Speci men Type: VENOUS BLOOD SPECIMENOrdering Facility: [facility] Address: [address] [place] [id number] Performed By: #### 2 4344-4 ####[facility] LABCLIA [id number] [address] [address] [place] Carboxyhemoglobin (BldV) [Mass fraction] 1.5 % Normal 0.0-2.0 [facility] Comment on above: Order Comment: Speci men Type: VENOUS BLOOD SPECIMENOrdering Facility: [facility] Address: [address] [place] [id number] Result Comment: Carb oxyhemoglobin Reference Range for Smokers: 2.0-8.0% Performed By: #### 2 4344-4 ####[facility] LABCLIA [id number] [address] [address] [place] CO2 (BldV) [Partial pressure] 40 mm[Hg] Low 42-55 [facility] Comment on above: Order Comment: Speci men Type: VENOUS BLOOD SPECIMENOrdering Facility: [facility] Address: [address] [place], [place] [address] Performed By: #### 2 4344-4 ####[facility] LABCLIA [id number] [address] [address] [place] CO2 adjusted to patient's actual temperature (BldV) [Partial pressure] 44 mmHg Normal 42-55 [facility] Comment on above: Order Comment: Speci men Type: VENOUS BLOOD SPECIMENOrdering Facility: [facility] Address: [address] [place], [place] [address] Performed By: #### 2 4344-4 ####[facility] LABCLIA [id number] [address] [address] [place] Glucose [Mass/Vol] 139 mg/dL High 60-105 [facility] Comment on above: Order Comment: Speci men Type: VENOUS BLOOD SPECIMENOrdering Facility: [facility] Address: [address] [place], [place] [address] Performed By: #### 2 4344-4 ####[facility] LABCLIA [id number] [place] [address] [place] HCO3 (Bld) [Moles/Vol] 23 mmol/L Low 24-28 [facility] Comment on above: Order Comment: Speci men Type: VENOUS BLOOD SPECIMENOrdering Facility: [facility] Address: [address] [place] [address] Performed By: #### 2 4344-4 ####[facility] LABCLIA [id number] [place] [address] [place] Hematocrit (Bld) [Volume fraction] 35.9 % Low 39.0-51.0 [facility] Comment on above: Order Comment: Speci men Type: VENOUS BLOOD SPECIMENOrdering Facility: [facility] Address: [address] [place] [address] Performed By: #### 2 4344-4 ####[facility] LABIA [id number] [place] [address] [place] Hemoglobin (Bld) [Mass/Vol] 11.7 g/dL Low 13.0-17.0 [facility] Comment on above: Order Comment: Speci men Type: VENOUS BLOOD SPECIMENOrdering Facility: [facility] Address: [address] [place] [address] Performed By: #### 2 4344-4 ####[facility] LABCLIA [id number] [place] [address] [place] Lactate [Moles/Vol] 5.3 mmol/L High 0.5-2.2 [facility] Comment on above: Order Comment: Speci men Type: VENOUS BLOOD SPECIMENOrdering Facility: [facility] Address: [address] [place] [address] Performed By: #### 2 4344-4 ####[facility] LABCLIA [id number] [address] [address] [place] Methemoglobin (Bld) [Mass fraction] 0.8 % Normal 0.0-1.5 [facility] Comment on above: Order Comment: Speci men Type: VENOUS BLOOD SPECIMENOrdering Facility: [facility] Address: [address] [place] [phone] Performed By: #### 2 4344-4 ####[facility] LABCLIA [id number] [address] [address] [place] Oxygen (BldV) [Partial pressure] 46 mm[Hg] High 35-45 [facility] Comment on above: Order Comment: Speci men Type: VENOUS BLOOD SPECIMENOrdering Facility: [facility] Address: [address] [place], [place] [address] Performed By: #### 2 4344-4 ####[facility] LABCLIA [id number] [place] [address] [place] Oxygen adjusted to patient's actual temperature (BldV) [Partial pressure] 52 mmHg High 35-45 [facility] Comment on above: Order Comment: Speci men Type: VENOUS BLOOD SPECIMENOrdering Facility: [facility] Address: [address] [place], [place] [address] Performed By: #### 2 4344-4 ####[facility] LABCLIA [id number] [address] [address] [place] Oxygen saturation in Venous blood 83 % Normal 60-85 [facility] Comment on above: Order Comment: Speci men Type: VENOUS BLOOD SPECIMENOrdering Facility: [facility] Address: [address] [place] [address] Performed By: #### 2 4344-4 ####[facility] LABCLIA [id number] [address] [address] [place] Oxyhemoglobin (BldV) [Mass fraction] 81 % Normal 60-85 [facility] Comment on above: Order Comment: Speci men Type: VENOUS BLOOD SPECIMENOrdering Facility: [facility] Address: [address] [place] [address] Performed By: #### 2 4344-4 ####[facility] LABCLIA [id number] [place] [address] [place] pH (BldV) 7.38 [pH] Normal 7.32-7.42 [facility] Comment on above: Order Comment: Speci men Type: VENOUS BLOOD SPECIMENOrdering Facility: [facility] Address: [address] [place] [address] Performed By: #### 2 4344-4 ####[facility] LABCLIA [id number] [place] [address] [place] pH adjusted to patient's actual temperature (BldV) 7.36 Normal 7.32-7.42 [facility] Comment on above: Order Comment: Speci men Type: VENOUS BLOOD SPECIMENOrdering Facility: [facility] Address: [address] [place] [address] Performed By: #### 2 4344-4 ####[facility] LABCLIA [id number] [place] [address] [place] Potassium [Moles/Vol] 4.6 mmol/L Normal 3.5-5.0 [facility] Comment on above: Order Comment: Speci men Type: VENOUS BLOOD SPECIMENOrdering Facility: [facility] Address: [address] [place] [address] Performed By: #### 2 4344-4 ####[facility] LABCLIA [id number] [place] [address] [place] SET VENTILATOR RESPIRATORY RATE (BPM) 34 BPM Normal [facility] Comment on above: Order Comment: Speci men Type: VENOUS BLOOD SPECIMENOrdering Facility: [facility] Address: [address] [place] [address] Performed By: #### 2 4344-4 ####[facility] LABCLIA [id number] [place] [address] [place] Sodium [Moles/Vol] 140 mmol/L Normal 136-144 [facility] Comment on above: Order Comment: Speci men Type: VENOUS BLOOD SPECIMENOrdering Facility: [facility] Address: [address] [place] [address] Performed By: #### 2 4344-4 ####[facility] LABCLIA [id number] [place] [address] [place] BASE DEFICIT, VENOUS -3 mmol/L Low -2-0 [facility] Comment on above: Order Comment: Speci men Type: VENOUS BLOOD SPECIMENOrdering Facility: [facility] Address: [address] [place] [address] Performed By: #### 2 4344-4 ####[facility] LABCLIA [id number] [place] [address] [place] Calcium.ionized (Bld) [Mass/Vol] 1.18 mmol/L Normal 1.08-1.30 [facility] Comment on above: Order Comment: Speci men Type: VENOUS BLOOD SPECIMENOrdering Facility: [facility] Address: [address] [place] [address] Performed By: #### 2 4344-4 ####[facility] LABIA [id number] [place] [address] [place] Calcium.ionized adjusted to pH 7.4 (BldA) [Moles/Vol] 1.16 mmol/L Normal 1.08-1.30 [facility] Comment on above: Order Comment: Speci men Type: VENOUS BLOOD SPECIMENOrdering Facility: [facility] Address: [address] [place] [address] Performed By: #### 2 4344-4 ####[facility] LABCLIA [id number] [place] [address] [place] Carboxyhemoglobin (BldV) [Mass fraction] 1.4 % Normal 0.0-2.0 [facility] Comment on above: Order Comment: Speci men Type: VENOUS BLOOD SPECIMENOrdering Facility: [facility] Address: [address] [place] [address] Result Comment: Carb oxyhemoglobin Reference Range for Smokers: 2.0-8.0% Performed By: #### 2 4344-4 ####[facility] LABCLIA [id number] [place] [address] [place] CO2 (BldV) [Partial pressure] 39 mm[Hg] Low 42-55 [facility] Comment on above: Order Comment: Speci men Type: VENOUS BLOOD SPECIMENOrdering Facility: [facility] Address: [address] [place] [address] Performed By: #### 2 4344-4 ####[facility] LABCLIA [id number] [place] [address] [place] CO2 adjusted to patient's actual temperature (BldV) [Partial pressure] 41 mmHg Low 42-55 [facility] Comment on above: Order Comment: Speci men Type: VENOUS BLOOD SPECIMENOrdering Facility: [facility] Address: [address] [place] [address] Performed By: #### 2 4344-4 ####[facility] LABCLIA [id number] [place] [address] [place] Glucose [Mass/Vol] 140 mg/dL High 60-105 [facility] Comment on above: Order Comment: Speci men Type: VENOUS BLOOD SPECIMENOrdering Facility: [facility] Address: [address] [place] [address] Performed By: #### 2 4344-4 ####[facility] LABCLIA [id number] [place] [address] [place] HCO3 (Bld) [Moles/Vol] 22 mmol/L Low 24-28 [facility] Comment on above: Order Comment: Speci men Type: VENOUS BLOOD SPECIMENOrdering Facility: [facility] Address: [address] [place] [address] Performed By: #### 2 4344-4 ####[facility] LABCLIA [id number] [place] [address] [place] Hematocrit (Bld) [Volume fraction] 36.0 % Low 39.0-51.0 [facility] Comment on above: Order Comment: Speci men Type: VENOUS BLOOD SPECIMENOrdering Facility: [facility] Address: [address] [place] [address] Performed By: #### 2 4344-4 ####[facility] LABIA [id number] [place] [address] [place] Hemoglobin (Bld) [Mass/Vol] 11.7 g/dL Low 13.0-17.0 [facility] Comment on above: Order Comment: Speci men Type: VENOUS BLOOD SPECIMENOrdering Facility: [facility] Address: [address] [place] [address] Performed By: #### 2 4344-4 ####[facility] LABIA [id number] [place] [address] [place] Lactate [Moles/Vol] 6.9 mmol/L High 0.5-2.2 [facility] Comment on above: Order Comment: Speci men Type: VENOUS BLOOD SPECIMENOrdering Facility: [facility] Address: [address] [place] [address] Performed By: #### 2 4344-4 ####[facility] LABCLIA [id number] [place] [address] [place] Methemoglobin (Bld) [Mass fraction] 0.8 % Normal 0.0-1.5 [facility] Comment on above: Order Comment: Speci men Type: VENOUS BLOOD SPECIMENOrdering Facility: [facility] Address: [address] [place] [address] Performed By: #### 2 4344-4 ####[facility] LABCLIA [id number] [place] [address] [place] Oxygen (BldV) [Partial pressure] 45 mm[Hg] Normal 35-45 [facility] Comment on above: Order Comment: Speci men Type: VENOUS BLOOD SPECIMENOrdering Facility: [facility] Address: [address] [place], [place] [address] Performed By: #### 2 4344-4 ####[facility] LABCLIA [id number] [place] [address] [place] Oxygen adjusted to patient's actual temperature (BldV) [Partial pressure] 49 mmHg High 35-45 [facility] Comment on above: Order Comment: Speci men Type: VENOUS BLOOD SPECIMENOrdering Facility: [facility] Address: [address] [place] [address] Performed By: #### 2 4344-4 ####[facility] LABCLIA [id number] [place] [address] [place] Oxygen saturation in Venous blood 81 % Normal 60-85 [facility] Comment on above: Order Comment: Speci men Type: VENOUS BLOOD SPECIMENOrdering Facility: [facility] Address: [address] [place], [place] [address] Performed By: #### 2 4344-4 ####[facility] LABIA [id number] [place] [address] [place] Oxyhemoglobin (BldV) [Mass fraction] 79 % Normal 60-85 [facility] Comment on above: Order Comment: Speci men Type: VENOUS BLOOD SPECIMENOrdering Facility: [facility] Address: [address] [place] [address] Performed By: #### 2 4344-4 ####[facility] LABCLIA [id number] [address] [address] [place] pH (BldV) 7.37 [pH] Normal 7.32-7.42 [facility] Comment on above: Order Comment: Speci men Type: VENOUS BLOOD SPECIMENOrdering Facility: [facility] Address: [address] [place], [place] [address] Performed By: #### 2 4344-4 ####[facility] LABCLIA [id number] [place] [address] [place] pH adjusted to patient's actual temperature (BldV) 7.35 Normal 7.32-7.42 [facility] Comment on above: Order Comment: Speci men Type: VENOUS BLOOD SPECIMENOrdering Facility: [facility] Address: [address] [place], [place] [address] Performed By: #### 2 4344-4 ####[facility] LABCLIA [id number] [place] [address] [place] Potassium [Moles/Vol] 4.2 mmol/L Normal 3.5-5.0 [facility] Comment on above: Order Comment: Speci men Type: VENOUS BLOOD SPECIMENOrdering Facility: [facility] Address: [address] [place] [address] Performed By: #### 2 4344-4 ####[facility] LABCLIA [id number] [place] [address] [place] Sodium [Moles/Vol] 139 mmol/L Normal 136-144 [facility] Comment on above: Order Comment: Speci men Type: VENOUS BLOOD SPECIMENOrdering Facility: [facility] Address: [address] [place], [place] [address] Performed By: #### 2 4344-4 ####[facility] LABCLIA [id number] [place] [id number] [place] BASE DEFICIT, VENOUS -4 mmol/L Low -2-0 [facility] Comment on above: Order Comment: Speci men Type: VENOUS BLOOD SPECIMENOrdering Facility: [facility] Address: [address] [place], [place] [address] Performed By: #### 2 4344-4 ####[facility] LABCLIA [id number] [place] [address] [place] Body temperature 99.14 [degF] Normal [facility] Comment on above: Order Comment: Speci men Type: VENOUS BLOOD SPECIMENOrdering Facility: [facility] Address: [address] [place] [address] Performed By: #### 2 4344-4 ####[facility] LABCLIA [id number] [place] [address] [place] Calcium.ionized (Bld) [Mass/Vol] 1.18 mmol/L Normal 1.08-1.30 [facility] Comment on above: Order Comment: Speci men Type: VENOUS BLOOD SPECIMENOrdering Facility: [facility] Address: [address] [place] [address] Performed By: #### 2 4344-4 ####[facility] LABIA [id number] [place] [address] [place] Calcium.ionized adjusted to pH 7.4 (BldA) [Moles/Vol] 1.15 mmol/L Normal 1.08-1.30 [facility] Comment on above: Order Comment: Speci men Type: VENOUS BLOOD SPECIMENOrdering Facility: [facility] Address: [address] [place] [address] Performed By: #### 2 4344-4 ####[facility] LABIA [id number] [place] [address] [place] Carboxyhemoglobin (BldV) [Mass fraction] 1.1 % Normal 0.0-2.0 [facility] Comment on above: Order Comment: Speci men Type: VENOUS BLOOD SPECIMENOrdering Facility: [facility] Address: [address] [place] [address] Performed By: #### 2 4344-4 ####[facility] LABIA [id number] [place] [address] [place] CO2 (BldV) [Partial pressure] 40 mm[Hg] Low 42-55 [facility] Comment on above: Order Comment: Speci men Type: VENOUS BLOOD SPECIMENOrdering Facility: [facility] Address: [address] [place] [address] Performed By: #### 2 4344-4 ####[facility] LABCLIA [id number] [address] [address] [place] CO2 adjusted to patient's actual temperature (BldV) [Partial pressure] 40 mmHg Low 42-55 [facility] Comment on above: Order Comment: Speci men Type: VENOUS BLOOD SPECIMENOrdering Facility: [facility] Address: [address] [place] [address] Performed By: #### 2 4344-4 ####[facility] LABCLIA [id number] [place] [address] [place] FIO2 40 % Normal [facility] Comment on above: Order Comment: Speci men Type: VENOUS BLOOD SPECIMENOrdering Facility: [facility] Address: [address] [place] [address] Performed By: #### 2 4344-4 ####[facility] LABCLIA [id number] [place] [address] [place] Glucose [Mass/Vol] 147 mg/dL High 60-105 [facility] Comment on above: Order Comment: Speci men Type: VENOUS BLOOD SPECIMENOrdering Facility: [facility] Address: [address] [place] [address] Performed By: #### 2 4344-4 ####[facility] LABCLIA [id number] [place] [id number] [place] HCO3 (Bld) [Moles/Vol] 21 mmol/L Low 24-28 [facility] Comment on above: Order Comment: Speci men Type: VENOUS BLOOD SPECIMENOrdering Facility: [facility] Address: [address] [place], [place] [address] Performed By: #### 2 4344-4 ####[facility] LABIA [id number] [place] [address] [place] Hematocrit (Bld) [Volume fraction] 35.7 % Low 39.0-51.0 [facility] Comment on above: Order Comment: Speci men Type: VENOUS BLOOD SPECIMENOrdering Facility: [facility] Address: [address] [place] [address] Performed By: #### 2 4344-4 ####[facility] LABIA [id number] [place] [address] [place] Hemoglobin (Bld) [Mass/Vol] 11.6 g/dL Low 13.0-17.0 [facility] Comment on above: Order Comment: Speci men Type: VENOUS BLOOD SPECIMENOrdering Facility: [facility] Address: [address] [place] [address] Performed By: #### 2 4344-4 ####[facility] [id number] [place] [address] [place] Lactate [Moles/Vol] 8.4 mmol/L High 0.5-2.2 [facility] Comment on above: Order Comment: Speci men Type: VENOUS BLOOD SPECIMENOrdering Facility: [facility] [place] Address: [address] [place] [address] Performed By: #### 2 4344-4 ####[facility] LABIA [id number] [place] [address] [place] Methemoglobin (Bld) [Mass fraction] 1.0 % Normal 0.0-1.5 [facility] Comment on above: Order Comment: Speci men Type: VENOUS BLOOD SPECIMENOrdering Facility: [facility] Address: [address] [place] [address] Performed By: #### 2 4344-4 ####[facility] LABIA [id number] [place] [address] [place] O2 THERAPY VENT=Ventilator Normal [facility] Comment on above: Order Comment: Speci men Type: VENOUS BLOOD SPECIMENOrdering Facility: [facility] Address: [address] [place] [address] Performed By: #### 2 4344-4 ####[facility] LABCLIA [id number] [address] [address] [place] Oxygen (BldV) [Partial pressure] 50 mm[Hg] High 35-45 [facility] Comment on above: Order Comment: Speci men Type: VENOUS BLOOD SPECIMENOrdering Facility: [facility] Address: [address] [place] [id number] Performed By: #### 2 4344-4 ####[facility] LABCLIA [id number] [address] [address] [place] Oxygen adjusted to patient's actual temperature (BldV) [Partial pressure] 51 mmHg High 35-45 [facility] Comment on above: Order Comment: Speci men Type: VENOUS BLOOD SPECIMENOrdering Facility: [facility] Address: [address] [place] [address] Performed By: #### 2 4344-4 ####[facility] LABCLIA [id number] [address] [address] [place] Oxygen saturation in Venous blood 84 % Normal 60-85 [facility] Comment on above: Order Comment: Speci men Type: VENOUS BLOOD SPECIMENOrdering Facility: [facility] Address: [address] [place] [address] Performed By: #### 2 4344-4 ####[facility] LABCLIA [id number] [address] [address] [place] Oxyhemoglobin (BldV) [Mass fraction] 82 % Normal 60-85 [facility] Comment on above: Order Comment: Speci men Type: VENOUS BLOOD SPECIMENOrdering Facility: [facility] Address: [address] [place] [address] Performed By: #### 2 4344-4 ####[facility] LABCLIA [id number] [place] [address] [place] pH (BldV) 7.35 [pH] Normal 7.32-7.42 [facility] Comment on above: Order Comment: Speci men Type: VENOUS BLOOD SPECIMENOrdering Facility: [facility] Address: [address] [place] [address] Performed By: #### 2 4344-4 ####[facility] LABCLIA [id number] [place] [address] [place] pH adjusted to patient's actual temperature (BldV) 7.34 Normal 7.32-7.42 [facility] Comment on above: Order Comment: Speci men Type: VENOUS BLOOD SPECIMENOrdering Facility: [facility] Address: [address] [place] [address] Performed By: #### 2 4344-4 ####[facility] LABIA [id number] [place] [address] [place] Potassium [Moles/Vol] 3.8 mmol/L Normal 3.5-5.0 [facility] Comment on above: Order Comment: Speci men Type: VENOUS BLOOD SPECIMENOrdering Facility: [facility] Address: [address] [place] [address] Performed By: #### 2 4344-4 ####[facility] LABIA [id number] [place] [address] [place] Sodium [Moles/Vol] 138 mmol/L Normal 136-144 [facility] Comment on above: Order Comment: Speci men Type: VENOUS BLOOD SPECIMENOrdering Facility: [facility] Address: [address] [place] [address] Performed By: #### 2 4344-4 ####[facility] LABCLIA [id number] [place] [address] [place] BASE DEFICIT, VENOUS -7 mmol/L Low -2-0 [facility] Comment on above: Order Comment: Speci men Type: VENOUS BLOOD SPECIMENOrdering Facility: [facility] Address: [address] [place] [address] Performed By: #### 2 4344-4 ####[facility] LABCLIA [id number] [place] [address] [place] Calcium.ionized (Bld) [Mass/Vol] 1.11 mmol/L Normal 1.08-1.30 [facility] Comment on above: Order Comment: Speci men Type: VENOUS BLOOD SPECIMENOrdering Facility: [facility] Address: [address] [place] [address] Performed By: #### 2 4344-4 ####[facility] LABCLIA [id number] [place] [address] [place] Calcium.ionized adjusted to pH 7.4 (BldA) [Moles/Vol] 1.04 mmol/L Low 1.08-1.30 [facility] Comment on above: Order Comment: Speci men Type: VENOUS BLOOD SPECIMENOrdering Facility: [facility] Address: [address] [place] [address] Performed By: #### 2 4344-4 ####[facility] LABCLIA [id number] [place] [address] [place] Carboxyhemoglobin (BldV) [Mass fraction] 1.0 % Normal 0.0-2.0 [facility] Comment on above: Order Comment: Speci men Type: VENOUS BLOOD SPECIMENOrdering Facility: [facility] Address: [address] [place] [address] Result Comment: Carb oxyhemoglobin Reference Range for Smokers: 2.0-8.0% Performed By: #### 2 4344-4 ####[facility] LABCLIA [id number] [place] [address] [place] CO2 (BldV) [Partial pressure] 42 mm[Hg] Normal 42-55 [facility] Comment on above: Order Comment: Speci men Type: VENOUS BLOOD SPECIMENOrdering Facility: [facility] Address: [address] [place] [id number] Performed By: #### 2 4344-4 ####[facility] LABCLIA [id number] [address] [address] [place] CO2 adjusted to patient's actual temperature (BldV) [Partial pressure] 42 mmHg Normal 42-55 [facility] Comment on above: Order Comment: Speci men Type: VENOUS BLOOD SPECIMENOrdering Facility: [facility] Address: [address] [place] [address] Performed By: #### 2 4344-4 ####[facility] LABCLIA [id number] [place] [address] [place] Glucose [Mass/Vol] 147 mg/dL High 60-105 [facility] Comment on above: Order Comment: Speci men Type: VENOUS BLOOD SPECIMENOrdering Facility: [facility] Address: [address] [place] [address] Performed By: #### 2 4344-4 ####[facility] LABCLIA [id number] [place] [address] [place] Hematocrit (Bld) [Volume fraction] 37.9 % Low 39.0-51.0 [facility] Comment on above: Order Comment: Speci men Type: VENOUS BLOOD SPECIMENOrdering Facility: [facility] Address: [address] [place] [address] Performed By: #### 2 4344-4 ####[facility] LABCLIA [id number] [place] [id number] [place] Hemoglobin (Bld) [Mass/Vol] 12.3 g/dL Low 13.0-17.0 [facility] Comment on above: Order Comment: Speci men Type: VENOUS BLOOD SPECIMENOrdering Facility: [facility] Address: [address] [place], [place] [address] Performed By: #### 2 4344-4 ####[facility] LABCLIA [id number] [address] [address] [place] Lactate [Moles/Vol] 6.6 mmol/L High 0.5-2.2 [facility] Comment on above: Order Comment: Speci men Type: VENOUS BLOOD SPECIMENOrdering Facility: [facility] Address: [address] [place] [address] Performed By: #### 2 4344-4 ####[facility] LABCLIA [id number] [place] [address] [place] Oxygen (BldV) [Partial pressure] 53 mm[Hg] High 35-45 [facility] Comment on above: Order Comment: Speci men Type: VENOUS BLOOD SPECIMENOrdering Facility: [facility] Address: [address] [place] [address] Performed By: #### 2 4344-4 ####[facility] LABCLIA [id number] [place] [address] [place] Oxygen adjusted to patient's actual temperature (BldV) [Partial pressure] 54 mmHg High 35-45 [facility] Comment on above: Order Comment: Speci men Type: VENOUS BLOOD SPECIMENOrdering Facility: [facility] Address: [address] [place], [place] [address] Performed By: #### 2 4344-4 ####[facility] LABCLIA [id number] [place] [address] [place] Oxygen saturation in Venous blood 84 % Normal 60-85 [facility] Comment on above: Order Comment: Speci men Type: VENOUS BLOOD SPECIMENOrdering Facility: [facility] Address: [address] [place], [place] [address] Performed By: #### 2 4344-4 ####[facility] LABCLIA [id number] [address] [address] [place] Oxyhemoglobin (BldV) [Mass fraction] 82 % Normal 60-85 [facility] Comment on above: Order Comment: Speci men Type: VENOUS BLOOD SPECIMENOrdering Facility: [facility] Address: [address] [place] [address] Performed By: #### 2 4344-4 ####[facility] LABIA [id number] [address] [address] [place] pH (BldV) 7.28 [pH] Low 7.32-7.42 [facility] Comment on above: Order Comment: Speci men Type: VENOUS BLOOD SPECIMENOrdering Facility: [facility] Address: [address] [place] [address] Performed By: #### 2 4344-4 ####[facility] LABIA [id number] [place] [address] [place] pH adjusted to patient's actual temperature (BldV) 7.28 Low 7.32-7.42 [facility] Comment on above: Order Comment: Speci men Type: VENOUS BLOOD SPECIMENOrdering Facility: [facility] Address: [address] [place], [place] [address] Performed By: #### 2 4344-4 ####[facility] LABIA [id number] [place] [address] [place] Potassium [Moles/Vol] 3.5 mmol/L Normal 3.5-5.0 [facility] Comment on above: Order Comment: Speci men Type: VENOUS BLOOD SPECIMENOrdering Facility: [facility] Address: [address] [place] [address] Performed By: #### 2 4344-4 ####[facility] LABIA [id number] [place] [address] [place] Sodium [Moles/Vol] 143 mmol/L Normal 136-144 [facility] Comment on above: Order Comment: Speci men Type: VENOUS BLOOD SPECIMENOrdering Facility: [facility] Address: [address] [place] [address] Performed By: #### 2 4344-4 ####[facility] LABCLIA [id number] [place] [address] [place] BASE DEFICIT, VENOUS -7 mmol/L Low -2-0 [facility] Comment on above: Order Comment: Speci men Type: VENOUS BLOOD SPECIMENOrdering Facility: [facility] Address: [address] [place] [address] Performed By: #### 2 4344-4 ####[facility] LABCLIA [id number] [place] [address] [place] Body temperature 97.7 [degF] Normal [facility] Comment on above: Order Comment: Speci men Type: VENOUS BLOOD SPECIMENOrdering Facility: [facility] Address: [address] [place] [address] Performed By: #### 2 4344-4 ####[facility] LABIA [id number] [place] [address] [place] Calcium.ionized (Bld) [Mass/Vol] 1.17 mmol/L Normal 1.08-1.30 [facility] Comment on above: Order Comment: Speci men Type: VENOUS BLOOD SPECIMENOrdering Facility: [facility] Address: [address] [place] [address] Performed By: #### 2 4344-4 ####[facility] LABCLIA [id number] [place] [address] [place] Calcium.ionized adjusted to pH 7.4 (BldA) [Moles/Vol] 1.07 mmol/L Low 1.08-1.30 [facility] Comment on above: Order Comment: Speci men Type: VENOUS BLOOD SPECIMENOrdering Facility: [facility] Address: [address] [place] [address] Performed By: #### 2 4344-4 ####[facility] LABIA [id number] [address] [place] Carboxyhemoglobin (BldV) [Mass fraction] 0.9 % Normal 0.0-2.0 [facility] Comment on above: Order Comment: Speci men Type: VENOUS BLOOD SPECIMENOrdering Facility: [facility] Address: [address] [place] [address] Result Comment: Carb oxyhemoglobin Reference Range for Smokers: 2.0-8.0% Performed By: #### 2 4344-4 ####[facility] LABCLIA [id number] [place] [address] [place] CO2 (BldV) [Partial pressure] 48 mm[Hg] Normal 42-55 [facility] Comment on above: Order Comment: Speci men Type: VENOUS BLOOD SPECIMENOrdering Facility: [facility] Address: [address] [place] [address] Performed By: #### 2 4344-4 ####[facility] LABCLIA [id number] [address] [place] CO2 adjusted to patient's actual temperature (BldV) [Partial pressure] 47 mmHg Normal 42-55 [facility] Comment on above: Order Comment: Speci men Type: VENOUS BLOOD SPECIMENOrdering Facility: [facility] Address: [address] [place] [address] Performed By: #### 2 4344-4 ####[facility] LABCLIA [id number] [place] [address] [place] FIO2 50 % Normal [facility] Comment on above: Order Comment: Speci men Type: VENOUS BLOOD SPECIMENOrdering Facility: [facility] Address: [address] [place] [address] Performed By: #### 2 4344-4 ####[facility] LABCLIA [id number] [place] [address] [place] Glucose [Mass/Vol] 174 mg/dL High 60-105 [facility] Comment on above: Order Comment: Speci men Type: VENOUS BLOOD SPECIMENOrdering Facility: [facility] Address: [address] [place] [address] Performed By: #### 2 4344-4 ####[facility] LABCLIA [id number] [place] [address] [place] HCO3 (Bld) [Moles/Vol] 20 mmol/L Low 24-28 [facility] Comment on above: Order Comment: Speci men Type: VENOUS BLOOD SPECIMENOrdering Facility: [facility] Address: [address] [place] [address] Performed By: #### 2 4344-4 ####[facility] LABCLIA [id number] [place] [address] [place] Hematocrit (Bld) [Volume fraction] 41.3 % Normal 39.0-51.0 [facility] Comment on above: Order Comment: Speci men Type: VENOUS BLOOD SPECIMENOrdering Facility: [facility] Address: [address] [place] [address] Performed By: #### 2 4344-4 ####[facility] LABCLIA [id number] [place] [address] [place] Hemoglobin (Bld) [Mass/Vol] 13.4 g/dL Normal 13.0-17.0 [facility] Comment on above: Order Comment: Speci men Type: VENOUS BLOOD SPECIMENOrdering Facility: [facility] Address: [address] [place] [address] Performed By: #### 2 4344-4 ####[facility] LABCLIA [id number] [place] [address] [place] Lactate [Moles/Vol] 5.7 mmol/L High 0.5-2.2 [facility] Comment on above: Order Comment: Speci men Type: VENOUS BLOOD SPECIMENOrdering Facility: [facility] Address: [address] [place] [address] Performed By: #### 2 4344-4 ####[facility] LABCLIA [id number] [place] [id number] [place] Methemoglobin (Bld) [Mass fraction] 1.7 % High 0.0-1.5 [facility] Comment on above: Order Comment: Speci men Type: VENOUS BLOOD SPECIMENOrdering Facility: [facility] Address: [address] [place] [address] Performed By: #### 2 4344-4 ####[facility] LABCLIA [id number] [place] [address] [place] O2 THERAPY VENT=Ventilator Normal [facility] Comment on above: Order Comment: Speci men Type: VENOUS BLOOD SPECIMENOrdering Facility: [facility] Address: [address] [place] [address] Performed By: #### 2 4344-4 ####[facility] LABCLIA [id number] [place] [address] [place] Oxygen (BldV) [Partial pressure] 55 mm[Hg] High 35-45 [facility] Comment on above: Order Comment: Speci men Type: VENOUS BLOOD SPECIMENOrdering Facility: [facility] Address: [address] [place] [address] Performed By: #### 2 4344-4 ####[facility] LABCLIA [id number] [place] [address] [place] Oxygen adjusted to patient's actual temperature (BldV) [Partial pressure] 53 mmHg High 35-45 [facility] Comment on above: Order Comment: Speci men Type: VENOUS BLOOD SPECIMENOrdering Facility: [facility] Address: [address] [place], [place] [address] Performed By: #### 2 4344-4 ####[facility] LABCLIA [id number] [place] [id number] [place] Oxygen saturation in Venous blood 82 % Normal 60-85 [facility] Comment on above: Order Comment: Speci men Type: VENOUS BLOOD SPECIMENOrdering Facility: [facility] Address: [address] [place], [place] [address] Performed By: #### 2 4344-4 ####[facility] LABCLIA [id number] [place] [address] [place] Oxyhemoglobin (BldV) [Mass fraction] 80 % Normal 60-85 [facility] Comment on above: Order Comment: Speci men Type: VENOUS BLOOD SPECIMENOrdering Facility: [facility] Address: [address] [place] [address] Performed By: #### 2 4344-4 ####[facility] LABCLIA [id number] [place] [address] [place] pH (BldV) 7.24 [pH] Low 7.32-7.42 [facility] Comment on above: Order Comment: Speci men Type: VENOUS BLOOD SPECIMENOrdering Facility: [facility] Address: [address] [place] [address] Performed By: #### 2 4344-4 ####[facility] LABCLIA [id number] [place] [address] [place] pH adjusted to patient's actual temperature (BldV) 7.24 Low 7.32-7.42 [facility] Comment on above: Order Comment: Speci men Type: VENOUS BLOOD SPECIMENOrdering Facility: [facility] Address: [address] [place] [address] Performed By: #### 2 4344-4 ####[facility] LABCLIA [id number] [place] [address] [place] Potassium [Moles/Vol] 3.7 mmol/L Normal 3.5-5.0 [facility] Comment on above: Order Comment: Speci men Type: VENOUS BLOOD SPECIMENOrdering Facility: [facility] Address: [address] [place], [place] [address] Performed By: #### 2 4344-4 ####[facility] LABCLIA [id number] [place] [id number] [place] Sodium [Moles/Vol] 141 mmol/L Normal 136-144 [facility] Comment on above: Order Comment: Speci men Type: VENOUS BLOOD SPECIMENOrdering Facility: [facility] Address: [address] [place] [address] Performed By: #### 2 4344-4 ####[facility] LABIA [id number] [place] [address] [place] Glucose SerPl-mCncon 024 Glucose [Mass/Vol] 110 mg/dL High 74-99 [facility] Comment on above: Order Comment: Speci men Type: BLOOD SPECIMENOrdering Facility: [facility] Address: [address] [place] [address] Result Comment: The [place] [employer] (ADA) provides guidance for cutoff [...] Standards of Medical Care in Diabetes 2016, [place] [employer]. Diabetes Care. 2016.39(Suppl 1). Performed By: #### 2 345-7, K1 ####[facility] LABIA [id number] [place] [id number] [place] Hematocrit Auto (Bld) [Volum e fraction]on 01-23-2024 Hematocrit (Bld) [Volume fraction] 36.8 % Low 39.0-51.0 [facility] Comment on above: Order Comment: Speci men Type: BLOOD SPECIMENOrdering Facility: [facility] Address: [address] [place] [address] Performed By: #### 4 544-3 ####[facility] LABIA [id number] [place] [address] [place] INTRAOPERATIVE ECHO PREon INTRAOPERATIVE ECHO PRE Normal C [facility] No Panel InformationOrdered By: Kristofer Light on 01-23-2024 Implantable Lead Connection Status Connected [facility] Work Phone: Implantable Lead Implant Date [id number] [facility] Work Phone: Implantable Lead Oncology Rn Gaz[employer] [facility] Work Phone: Lead Channel Measurements Date and Time 2024-01-23 [facility] Work Phone: Zone Setting Status On [facility] Work Phone: OPERATIVE NOon 01-23-2024 OPERATIVE NO Normal [facility] POTASSIUMon 01-23-2024 Potassium [Moles/Vol] 4.4 mmol/L Normal 3.7-5.1 [facility] Comment on above: Order Comment: Speci men Type: BLOOD SPECIMENOrdering Facility: [facility] Address: [address] [place] [address] Performed By: #### 2 345-7, K1 ####[facility] LABIA [id number] [address] [place] PT panel Coag (PPP)on 2023 INR Coag (PPP) [Relative time] 1.1 {INR} Normal 0.9-1.3 [facility] Comment on above: Order Comment: Speci men Type: BLOOD SPECIMENOrdering Facility: [facility] Address: [address] [place] [address] Result Comment: Indu min K Antagonist (VKA) Therapeutic Range: INR 2 to 3 (Target INR of 2.5)Note: For patients treated with VKA drugs, such as warfarin, the [place] [employer] 2012 Guideline recommends [...] al. Chest 2012, 141:7S-47SNishradha RA, et al. [facility] 2017, 70: 252-289 Performed By: #### 1 4979-9, 92577-3 ####[facility] LABIA [id number] [place] [address] [place] PT Coag (PPP) [Time] 11.6 s Normal 9.7-13.0 [facility] Comment on above: Order Comment: Jeison parry Type: BLOOD SPECIMENOrdering Facility: [facility] Address: [address] [place] [address] Performed By: #### 1 4979-9, 96681-9 ####[facility] LABIA [id number] [place] [address] [place] Platelets Auto (Bld) [#/Vol] on 01-23-2024 Platelets (Bld) [#/Vol] 112 10*3/uL Low 150-400 [facility] Comment on above: Order Comment: Jeison parry Type: BLOOD SPECIMENOrdering Facility: [facility] Address: [address] [place] [address] Performed By: #### 7 77-3 ####[facility] [id number] [place] [address] [place] VENOUS BLOOD GASES WITH IONI ZED MAGNESIUMon 01-23-2024 Base excess Calc (BldV) [Moles/Vol] 0 mmol/L Normal 0-2 [facility] Comment on above: Order Comment: Jeison parry Type: VENOUS BLOOD SPECIMENOrdering Facility: [facility] Address: [address] [place], [place] [id number] Performed By: #### V ALLMG ####[facility] [id number] [place] [address] [place] Calcium.ionized (Bld) [Mass/Vol] 1.24 mmol/L Normal 1.08-1.30 [facility] Comment on above: Order Comment: Speci men Type: VENOUS BLOOD SPECIMENOrdering Facility: [facility] Address: [address] [place] [address] Performed By: #### V ALLMG ####[facility] [id number] [place] [address] [place] Calcium.ionized adjusted to pH 7.4 (BldA) [Moles/Vol] 1.17 mmol/L Normal 1.08-1.30 [facility] Comment on above: Order Comment: Speci men Type: VENOUS BLOOD SPECIMENOrdering Facility: [facility] Address: [address] [place] [address] Performed By: #### V ALLMG ####[facility] [id number] [place] [address] [place] Carboxyhemoglobin (BldV) [Mass fraction] 1.5 % Normal 0.0-2.0 [facility] Comment on above: Order Comment: Speci men Type: VENOUS BLOOD SPECIMENOrdering Facility: [facility] Address: [address] [place] [address] Result Comment: Carb oxyhemoglobin Reference Range for Smokers: 2.0-8.0% Performed By: #### V ALLMG ####[facility] [id number] [place] [address] [place] CO2 (BldV) [Partial pressure] 55 mm[Hg] Normal 42-55 [facility] Comment on above: Order Comment: Speci men Type: VENOUS BLOOD SPECIMENOrdering Facility: [facility] Address: [address] [place] [address] Performed By: #### V ALLMG ####[facility] LABCLIA [id number] [place] [address] [place] CO2 adjusted to patient's actual temperature (BldV) [Partial pressure] 55 mmHg Normal 42-55 [facility] Comment on above: Order Comment: Speci men Type: VENOUS BLOOD SPECIMENOrdering Facility: [facility] Address: [address] [place] [address] Performed By: #### V ALLMG ####[facility] LABCLIA [id number] [place] [address] [place] Glucose [Mass/Vol] 108 mg/dL High 60-105 [facility] Comment on above: Order Comment: Speci men Type: VENOUS BLOOD SPECIMENOrdering Facility: [facility] Address: [address] [place] [address] Performed By: #### V ALLMG ####[facility] LABCLIA [id number] [place] [address] [place] Order Comment: Speci men Type: ARTERIAL BLOOD SPECIMENOrdering Facility: [facility] Address: [address] [place] [address] Performed By: #### A LLMG ####[facility] LABCLIA [id number] [place] [address] [place] HCO3 (Bld) [Moles/Vol] 26 mmol/L Normal 24-28 [facility] Comment on above: Order Comment: Speci men Type: VENOUS BLOOD SPECIMENOrdering Facility: [facility] Address: [address] [place] [address] Performed By: #### V ALLMG ####[facility] LABCLIA [id number] [place] [address] [place] Hematocrit (Bld) [Volume fraction] 34.5 % Low 39.0-51.0 [facility] Comment on above: Order Comment: Speci men Type: VENOUS BLOOD SPECIMENOrdering Facility: [facility] Address: [address] [place] [address] Performed By: #### V ALLMG ####[facility] LABCLIA [id number] [place] [address] [place] Hemoglobin (Bld) [Mass/Vol] 11.2 g/dL Low 13.0-17.0 [facility] Comment on above: Order Comment: Speci men Type: VENOUS BLOOD SPECIMENOrdering Facility: [facility] Address: [address] [place] [address] Performed By: #### V ALLMG ####[facility] LABCLIA [id number] [place] [address] [place] Lactate [Moles/Vol] 2.2 mmol/L Normal 0.5-2.2 [facility] Comment on above: Order Comment: Speci men Type: VENOUS BLOOD SPECIMENOrdering Facility: [facility] Address: [address] [place] [address] Performed By: #### V ALLMG ####[facility] LABIA [id number] [place] [address] [place] Magnesium [Moles/Vol] 0.57 mmol/L Normal 0.45-0.60 [facility] Comment on above: Order Comment: Speci men Type: VENOUS BLOOD SPECIMENOrdering Facility: [facility] Address: [address] [place] [address] Performed By: #### V ALLMG ####[facility] LABCLIA [id number] [place] [address] [place] Methemoglobin (Bld) [Mass fraction] 0.8 % Normal 0.0-1.5 [facility] Comment on above: Order Comment: Speci men Type: VENOUS BLOOD SPECIMENOrdering Facility: [facility] Address: [address] [place] [address] Performed By: #### V ALLMG ####[facility] LABCLIA [id number] [address] [address] [place] Oxygen (BldV) [Partial pressure] 60 mm[Hg] High 35-45 [facility] Comment on above: Order Comment: Speci men Type: VENOUS BLOOD SPECIMENOrdering Facility: [facility] Address: [address] [place] [address] Performed By: #### V ALLMG ####[facility] LABCLIA [id number] [place] [address] [place] Oxygen adjusted to patient's actual temperature (BldV) [Partial pressure] 60 mmHg High 35-45 [facility] Comment on above: Order Comment: Speci men Type: VENOUS BLOOD SPECIMENOrdering Facility: [facility] Address: [address] [place] [address] Performed By: #### V ALLMG ####[facility] LABCLIA [id number] [place] [address] [place] Oxygen saturation in Venous blood 88 % High 60-85 [facility] Comment on above: Order Comment: Speci men Type: VENOUS BLOOD SPECIMENOrdering Facility: [facility] Address: [address] [place] [address] Performed By: #### V ALLMG ####[facility] LABCLIA [id number] [place] [address] [place] Oxyhemoglobin (BldV) [Mass fraction] 86 % High 60-85 [facility] Comment on above: Order Comment: Speci men Type: VENOUS BLOOD SPECIMENOrdering Facility: [facility] Address: [address] [place], [place] [id number] Performed By: #### V ALLMG ####[facility] LABCLIA [id number] [place] [address] [place] pH (BldV) 7.30 [pH] Low 7.32-7.42 [facility] Comment on above: Order Comment: Speci men Type: VENOUS BLOOD SPECIMENOrdering Facility: [facility] Address: [address] [place] [address] Performed By: #### V ALLMG ####[facility] LABCLIA [id number] [place] [address] [place] pH adjusted to patient's actual temperature (BldV) 7.30 Low 7.32-7.42 [facility] Comment on above: Order Comment: Speci men Type: VENOUS BLOOD SPECIMENOrdering Facility: [facility] Address: [address] [place] [address] Performed By: #### V ALLMG ####[facility] LABCLIA [id number] [place] [address] [place] Potassium [Moles/Vol] 4.5 mmol/L Normal 3.5-5.0 [facility] Comment on above: Order Comment: Speci men Type: VENOUS BLOOD SPECIMENOrdering Facility: [facility] Address: [address] [place] [address] Performed By: #### V ALLMG ####[facility] LABCLIA [id number] [place] [address] [place] Order Comment: Speci men Type: ARTERIAL BLOOD SPECIMENOrdering Facility: [facility] Address: [address] [place] [address] Performed By: #### A LLMG ####[facility] LABCLIA [id number] [place] [address] [place] Sodium [Moles/Vol] 141 mmol/L Normal 136-144 [facility] Comment on above: Order Comment: Speci men Type: VENOUS BLOOD SPECIMENOrdering Facility: [facility] Address: [address] [place] [address] Performed By: #### V ALLMG ####[facility] LABCLIA [id number] [place] [address] [place] Order Comment: Speci men Type: ARTERIAL BLOOD SPECIMENOrdering Facility: [facility] Address: [address] [place] [address] Performed By: #### A LLMG ####[facility] LABCLIA [id number] [place] [address] [place] XR CHEST 1V FRONTAL PORTon 1 XR CHEST 1V FRONTAL PORT Normal [facility] XR CHEST 1V FRONTAL PORT Normal [facility] aPTT PPPon 01-23-2024 aPTT Coag (PPP) [Time] 25.9 s Normal 23.0-32.4 [facility] Comment on above: Order Comment: Speci men Type: BLOOD SPECIMENOrdering Facility: [facility] Address: [address] [place] [address] Performed By: #### 1 4979-9, 28827-5 ####[facility] LABIA [id number] [place] [address] [place] CNCNPATEDon 01-22-2024 CNCNPATED Normal [facility] CNOVon 01-22-2024 CNOV Normal [facility] STAPHYLOCOCCUS AUREUS AND MR SA SCREEN, PCR, NASALon 01-22-2024 S. aureus and MRSA panel ARTIS+probe (Nose) Not detected Normal Not Detected [facility] Comment on above: Order Comment: Speci men Type: SWABOrdering Facility: [facility] Address: [address] [place] [address] Performed By: #### S APCR ####[facility] LABIA [id number] [place] [address] [place] CBC W Auto Differential pane l (Bld)on 01-19-2024 Basophils (Bld) [#/Vol] 0.09 10*3/uL Normal <0.11 [facility] Comment on above: Order Comment: Speci men Type: BLOOD SPECIMENOrdering Facility: [facility] Address: [address] [place] [address] Performed By: #### 5 7021-8 ####[facility] LABCLIA [id number] [place] [address] [place] Basophils/100 WBC (Bld) 1.1 % Normal C [facility] Comment on above: Order Comment: Speci men Type: BLOOD SPECIMENOrdering Facility: [facility] Address: [address] [place] [address] Performed By: #### 5 7021-8 ####[facility] LABCLIA [id number] [place] [address] [place] Differential cell count method Nom (Bld) Auto Normal [facility] Comment on above: Order Comment: Speci men Type: BLOOD SPECIMENOrdering Facility: [facility] Address: [address] [place] [address] Performed By: #### 5 7021-8 ####[facility] LABCLIA [id number] [place] [address] [place] Eosinophils (Bld) [#/Vol] 0.28 10*3/uL Normal <0.46 [facility] Comment on above: Order Comment: Speci men Type: BLOOD SPECIMENOrdering Facility: [facility] Address: [address] [place] [address] Performed By: #### 5 7021-8 ####[facility] LABCLIA [id number] [address] [place] Eosinophils/100 WBC (Bld) 3.4 % Normal [facility] Comment on above: Order Comment: Speci men Type: BLOOD SPECIMENOrdering Facility: [facility] Address: [address] [place] [address] Performed By: #### 5 7021-8 ####[facility] LABCLIA [id number] [place] [address] [place] Erythrocyte distribution width (RBC) [Ratio] 14.9 % Normal 11.5-15.0 [facility] Comment on above: Order Comment: Speci men Type: BLOOD SPECIMENOrdering Facility: [facility] Address: [address] [place] [address] Performed By: #### 5 7021-8 ####[facility] LABCLIA [id number] [place] [address] [place] Hematocrit (Bld) [Volume fraction] 42.7 % Normal 39.0-51.0 [facility] Comment on above: Order Comment: Speci men Type: BLOOD SPECIMENOrdering Facility: [facility] Address: [address] [place] [address] Performed By: #### 5 7021-8 ####[facility] LABIA [id number] [place] [address] [place] Hemoglobin (Bld) [Mass/Vol] 13.8 g/dL Normal 13.0-17.0 [facility] Comment on above: Order Comment: Speci men Type: BLOOD SPECIMENOrdering Facility: [facility] Address: [address] [place] [address] Performed By: #### 5 7021-8 ####[facility] LABIA [id number] [place] [address] [place] Immature granulocytes (Bld) [#/Vol] 0.05 10*3/uL Normal <0.10 [facility] Comment on above: Order Comment: Speci men Type: BLOOD SPECIMENOrdering Facility: [facility] Address: [address] [place] [address] Performed By: #### 5 7021-8 ####[facility] LABIA [id number] [place] [address] [place] Immature granulocytes/100 WBC (Bld) 0.6 % Normal [facility] Comment on above: Order Comment: Speci men Type: BLOOD SPECIMENOrdering Facility: [facility] Address: [address] [place] [address] Performed By: #### 5 7021-8 ####[facility] LABIA [id number] [place] [address] [place] Lymphocytes (Bld) [#/Vol] 2.35 10*3/uL Normal 1.00-4.00 [facility] Comment on above: Order Comment: Speci men Type: BLOOD SPECIMENOrdering Facility: [facility] Address: [address] [place] [address] Performed By: #### 5 7021-8 ####[facility] LABCLIA [id number] [place] [address] [place] Lymphocytes/100 WBC (Bld) 28.5 % Normal [facility] Comment on above: Order Comment: Speci men Type: BLOOD SPECIMENOrdering Facility: [facility] Address: [address] [place] [address] Performed By: #### 5 7021-8 ####[facility] LABIA [id number] [place] [address] [place] MCH (RBC) [Entitic mass] 27.5 pg Normal 26.0-34.0 [facility] Comment on above: Order Comment: Speci men Type: BLOOD SPECIMENOrdering Facility: [facility] Address: [address] [place] [address] Performed By: #### 5 7021-8 ####[facility] LABCLIA [id number] [place] [address] [place] MCHC (RBC) [Mass/Vol] 32.3 g/dL Normal 30.5-36.0 [facility] Comment on above: Order Comment: Speci men Type: BLOOD SPECIMENOrdering Facility: [facility] Address: [address] [place] [address] Performed By: #### 5 7021-8 ####[facility] LABCLIA [id number] [place] [address] [place] MCV (RBC) [Entitic vol] 85.2 fL Normal 80.0-100.0 C [facility] Comment on above: Order Comment: Speci men Type: BLOOD SPECIMENOrdering Facility: [facility] Address: [address] [place] [address] Performed By: #### 5 7021-8 ####[facility] LABCLIA [id number] [place] [address] [place] Monocytes (Bld) [#/Vol] 0.71 10*3/uL Normal <0.87 [facility] Comment on above: Order Comment: Speci men Type: BLOOD SPECIMENOrdering Facility: [facility] Address: [address] [place] [address] Performed By: #### 5 7021-8 ####[facility] LABCLIA [id number] [place] [address] [place] Monocytes/100 WBC (Bld) 8.6 % Normal [facility] Comment on above: Order Comment: Speci men Type: BLOOD SPECIMENOrdering Facility: [facility] Address: [address] [place] [address] Performed By: #### 5 7021-8 ####[facility] LABCLIA [id number] [place] [address] [place] Neutrophils (Bld) [#/Vol] 4.77 10*3/uL Normal 1.45-7.50 [facility] Comment on above: Order Comment: Speci men Type: BLOOD SPECIMENOrdering Facility: [facility] Address: [address] [place] [address] Performed By: #### 5 7021-8 ####[facility] LABCLIA [id number] [place] [address] [place] Neutrophils/100 WBC (Bld) 57.8 % Normal [facility] Comment on above: Order Comment: Speci men Type: BLOOD SPECIMENOrdering Facility: [facility] Address: [address] [place] [address] Performed By: #### 5 7021-8 ####[facility] LABCLIA [id number] [place] [address] [place] Nucleated RBC (Bld) [#/Vol] 10*3/uL Normal <0.01 [facility] Comment on above: Order Comment: Speci men Type: BLOOD SPECIMENOrdering Facility: [facility] Address: [address] [place] [address] Performed By: #### 5 7021-8 ####[facility] LABCLIA [id number] [place] [address] [place] Nucleated RBC/100 WBC (Bld) [Ratio] 0.0 /100 WBC Normal [facility] Comment on above: Order Comment: Speci men Type: BLOOD SPECIMENOrdering Facility: [facility] Address: [address] [place] [address] Performed By: #### 5 7021-8 ####[facility] LABCLIA [id number] [place] [address] [place] Platelet mean volume (Bld) [Entitic vol] 10.5 fL Normal 9.0-12.7 [facility] Comment on above: Order Comment: Speci men Type: BLOOD SPECIMENOrdering Facility: [facility] Address: [address] [place] [address] Performed By: #### 5 7021-8 ####[facility] LABCLIA [id number] [place] [address] [place] Platelets (Bld) [#/Vol] 211 10*3/uL Normal 150-400 [facility] Comment on above: Order Comment: Speci men Type: BLOOD SPECIMENOrdering Facility: [facility] Address: [address] [place] [address] Performed By: #### 5 7021-8 ####[facility] LABCLIA [id number] [place] [address] [place] RBC (Bld) [#/Vol] 5.01 10*6/uL Normal 4.20-6.00 [facility] Comment on above: Order Comment: Speci men Type: BLOOD SPECIMENOrdering Facility: [facility] Address: [address] [place] [address] Performed By: #### 5 7021-8 ####[facility] LABCLIA [id number] [place] [address] [place] WBC (Bld) [#/Vol] 8.25 10*3/uL Normal 3.70-11.00 [facility] Comment on above: Order Comment: Speci men Type: BLOOD SPECIMENOrdering Facility: [facility] Address: [address] [place] [address] Performed By: #### 5 7021-8 ####[facility] LABCLIA [id number] [place] [address] [place] CNOVon 01-19-2024 CNOV Normal [facility] CONFIRM BLOOD TYPEon 024 ABO O Normal [facility] Comment on above: Order Comment: Speci men Type: BLOOD SPECIMENOrdering Facility: [facility] Address: [address] [place] [address] Performed By: #### C ONABO ####[facility] BLOOD BANKCLIA [id number] [place] [address] [place] Rh Nom (Bld) Positive Normal [facility] Comment on above: Order Comment: Speci men Type: BLOOD SPECIMENOrdering Facility: [facility] Address: [address] [place] [address] Performed By: #### C ONABO ####[facility] BLOOD BANKCLIA [id number] [place] [address] [place] CREATININE, BLOOD (POC)on Creatinine [Mass/Vol] 1.20 mg/dL 0.7 - 1.4 mg/dL [facility] eGFR (POCT) mL/min/1.73 m2 [facility] Location:Radiology [facility], [address] [place] [address], [facility] POINT OF CARE [facility] CTA C/A/P (GATED) W IVCONon 01-19-2024 CTA C/A/P (GATED) W IVCON Normal [facility] CTA Chest vessels and Abdomi nal vessels and Pelvis vessels W contrast David 01-19-2024 IMPRESSION: Moderate left atrial enlargement. The mitral valve leaflets are moderately thickened, somewhat redundant, but noncalcified. Normal thoracic and abdominal aorta. No acute aortic pathology identified. The pelvic arteries, including the common femoral arteries are normal in course, caliber, and contour. The minimal luminal caliber throughout = 12 mm Collection Systems Technician: [facility] Transcribe Date/Time: Jan 19 2024 10:29A Dictated by : LUKE JOHNSON MD This examination was interpreted and the report reviewed and electronically signed by: LUKE JOHNSON MD on Jan 19 2024 10:47AM [facility] DIVISION OF RADIOLOGY * * *Final Report* [...] abdominal aorta. AORTIC ROOT: 3.2 cm measured [id number] mid ASCENDING THORACIC AORTA: 3.3 cm mid [...] changes of the thoracic and lumbar spine. Truck Body Repairer (topogram) images: No additional findings. DIVISION OF RADIOLOGY Provider[facility]24 * * *Final Report* * [...] abdominal aorta. AORTIC ROOT: 3.2 cm measured [id number]-yv-bzwjm mid ASCENDING THORACIC AORTA: 3.3 cm mid [...] changes of the thoracic and lumbar spine. Truck Body Repairer (topogram) images: No additional findings. IMPRESSION IMPRESSION: Moderate left atrial enlargement. The mitral valve leaflets are moderately thickened, somewhat redundant, but noncalcified. Normal thoracic and abdominal aorta. No acute aortic pathology identified. The pelvic arteries, including the common femoral arteries are normal in course, caliber, and contour. The minimal luminal caliber throughout = 12 mm Collection Systems Technician: [facility] Transcribe Date/Time: Jan 19 2024 10:29A Dictated by : LUKE JOHNSON MD This examination was interpreted and the report reviewed and electronically signed by: LUKE JOHNSON MD on Jan 19 2024 10:47AM EST [facility] Radiology Study observation (narrative) Jarad Mendoza CTA Chest vessels and Abdomi nal vessels and Pelvis vessels W contrast IVOrdered By: Ccf Provider on 01-19-2024 [facility] Comprehensive metabolic 2000 panelon 01-19-2024 Albumin [Mass/Vol] 4.5 g/dL Normal 3.9-4.9 [facility] Comment on above: Order Comment: Speci men Type: BLOOD SPECIMENOrdering Facility: [facility] Address: [address] [place] [id number] Performed By: #### 2 4323-8, 2531-0 ####[facility] LABCLIA [id number] [place] [address] [place] ALP [Catalytic activity/Vol] 66 U/L Normal 38-113 [facility] Comment on above: Order Comment: Speci men Type: BLOOD SPECIMENOrdering Facility: [facility] Address: [address] [place] [address] Performed By: #### 2 432-8, 2531-0 ####[facility] LABCLIA [id number] [place] [address] [place] ALT [Catalytic activity/Vol] 28 U/L Normal 10-54 [facility] Comment on above: Order Comment: Speci men Type: BLOOD SPECIMENOrdering Facility: [facility] Address: [address] [place] [address] Performed By: #### 2 4328, 2531-0 ####[facility] LABCLIA [id number] [place] [address] [place] Anion gap [Moles/Vol] 14 mmol/L Normal 8-15 [facility] Comment on above: Order Comment: Speci men Type: BLOOD SPECIMENOrdering Facility: [facility] Address: [address] [place] [address] Performed By: #### 2 4328, 2531-0 ####[facility] LABCLIA [id number] [place] [id number] [place] AST [Catalytic activity/Vol] 21 U/L Normal 14-40 [facility] Comment on above: Order Comment: Speci men Type: BLOOD SPECIMENOrdering Facility: [facility] Address: [address] [place], [place] [address] Performed By: #### 2 4323-8, 2-0 ####[facility] LABCLIA [id number] [place] [address] [place] Bilirubin [Mass/Vol] 0.6 mg/dL Normal 0.2-1.3 [facility] Comment on above: Order Comment: Speci men Type: BLOOD SPECIMENOrdering Facility: [facility] Address: [address] [place] [address] Performed By: #### 2 4323-8, 2-0 ####[facility] LABCLIA [id number] [place] [address] [place] Calcium [Mass/Vol] 9.4 mg/dL Normal 8.5-10.2 [facility] Comment on above: Order Comment: Speci men Type: BLOOD SPECIMENOrdering Facility: [facility] Address: [address] [place] [address] Performed By: #### 2 4323-8, 2531-0 ####[facility] LABCLIA [id number] [place] [address] [place] Chloride [Moles/Vol] 103 mmol/L Normal 98-107 [facility] Comment on above: Order Comment: Speci men Type: BLOOD SPECIMENOrdering Facility: [facility] Address: [address] [place] [address] Performed By: #### 2 4323-8, 2-0 ####[facility] LABCLIA [id number] [place] [address] [place] CO2 [Moles/Vol] 25 mmol/L Normal 22-30 [facility] Comment on above: Order Comment: Speci men Type: BLOOD SPECIMENOrdering Facility: [facility] Address: [address] [place] [address] Performed By: #### 2 4323-8, 2532-0 ####[facility] LABCLIA [id number] [place] [address] [place] Creatinine [Mass/Vol] 1.14 mg/dL Normal 0.73-1.22 [facility] Comment on above: Order Comment: Jeison parry Type: BLOOD SPECIMENOrdering Facility: [facility] Address: [address] [place] [address] Performed By: #### 2 4323-8, 2532-0 ####[facility] LABCLIA [id number] [place] [address] [place] Creatinine and Glomerular filtration rate.predicted panel (S/P/Bld) 71 mL/min/1.73m??? Normal >=60 [facility] Comment on above: Order Comment: Jeison parry Type: BLOOD SPECIMENOrdering Facility: [facility] Address: [address] [place] [address] Result Comment: Talisha mated Glomerular Filtration Rate [...] GFR. Performed By: #### 2 4323-8, 2531-0 ####[facility] LABCLIA [id number] [place] [address] [place] Glucose [Mass/Vol] 80 mg/dL Normal 74-99 [facility] Comment on above: Order Comment: Jeison parry Type: BLOOD SPECIMENOrdering Facility: [facility] Address: [address] [place] [address] Result Comment: The [place] [employer] (ADA) provides guidance for cutoff [...] Standards of Medical Care in Diabetes 2016, [place] [employer]. Diabetes Care. 2016.39(Suppl 1). Performed By: #### 2 4323-8, 0 ####[facility] LABCLIA [id number] [address] [address] [place] Potassium [Moles/Vol] 4.7 mmol/L Normal 3.7-5.1 [facility] Comment on above: Order Comment: Speci men Type: BLOOD SPECIMENOrdering Facility: [facility] Address: [address] [place] [address] Performed By: #### 2 4328, 0 ####[facility] LABCLIA [id number] [place] [address] [place] Protein [Mass/Vol] 6.6 g/dL Normal 6.3-8.0 [facility] Comment on above: Order Comment: Speci men Type: BLOOD SPECIMENOrdering Facility: [facility] Address: [address] [place] [address] Performed By: #### 2 4328, 0 ####[facility] LABIA [id number] [place] [address] [place] Sodium [Moles/Vol] 142 mmol/L Normal 136-144 [facility] Comment on above: Order Comment: Speci men Type: BLOOD SPECIMENOrdering Facility: [facility] Address: [address] [place] [id number] Performed By: #### 2 432-8, 2531-0 ####[facility] LABCLIA [id number] [address] [address] [place] Urea nitrogen [Mass/Vol] 21 mg/dL Normal 9-24 [facility] Comment on above: Order Comment: Speci men Type: BLOOD SPECIMENOrdering Facility: [facility] Address: [address] [place] [id number] Performed By: #### 2 432-8, 2532-0 ####[facility] LABCLIA [id number] [place] [address] [place] ECG COMPLETEon 01-19-2024 ECG COMPLETE Normal [facility] LDH SerPl-cCncon 01-19-2024 LDH [Catalytic activity/Vol] 211 U/L Normal 135-225 [facility] Comment on above: Order Comment: Speci men Type: BLOOD SPECIMENOrdering Facility: [facility] Address: [address] [place] [address] Performed By: #### 2 4323-8, 253-0 ####[facility] LABIA [id number] [address] STATES OF [facility] PT panel Coag (PPP)on 2023 INR Coag (PPP) [Relative time] 1.0 {INR} Normal 0.9-1.3 [facility] Comment on above: Order Comment: Spectiffanie parry Type: BLOOD SPECIMENOrdering Facility: [facility] Address: [address] [place] [address] Result Comment: Indu min K Antagonist (VKA) Therapeutic Range: INR 2 to 3 (Target INR of 2.5)Note: For patients treated with VKA drugs, such as warfarin, the [place] [employer] 2012 Guideline recommends [...] al. Chest 2012, 141:7S-47SRebel FIGUEROA, et al. [facility] 2017, 70: 252-289 Performed By: #### 3 4528-0, 28669-8 ####[facility] LABCLIA [id number] [place] [address] [place] PT Coag (PPP) [Time] 10.4 s Normal 9.7-13.0 [facility] Comment on above: Order Comment: Speci men Type: BLOOD SPECIMENOrdering Facility: [facility] Address: [address] [place] [address] Performed By: #### 3 4528-0, 25354-0 ####[facility] LABCLIA [id number] [place] [address] [place] TYPE AND SCREEN,30 DAYon ABO O Normal [facility] Comment on above: Order Comment: Speci men Type: BLOOD SPECIMENOrdering Facility: [facility] Address: [address] [place] [address] Performed By: #### T SCR30 ####[facility] BLOOD BANKIA [id number] [place] [address] [place] HISTORICAL AB SCR STATUS Negative Normal [facility] Comment on above: Order Comment: Speci men Type: BLOOD SPECIMENOrdering Facility: [facility] Address: [address] [place] [address] Performed By: #### T SCR30 ####[facility] BLOOD BANKCLIA [id number] [place] [address] [place] Rh Nom (Bld) Positive Normal [facility] Comment on above: Order Comment: Speci men Type: BLOOD SPECIMENOrdering Facility: [facility] Address: [address] [place] [address] Performed By: #### T SCR30 ####[facility] BLOOD BANKIA [id number] [place] [address] [place] URINALYSIS, DIPSTICK ONLYon 01-19-2024 Bilirubin Ql (U) Negative Normal Negative [facility] Comment on above: Order Comment: Speci men Type: URINE SPECIMENOrdering Facility: [facility] Address: [facility] [place] [address] Performed By: #### U A ####[facility] LABCLIA [id number] [place] [address] [place] Clarity (Unsp spec) Clear Normal Clear [facility] Comment on above: Order Comment: Speci men Type: URINE SPECIMENOrdering Facility: [facility] Address: [address] [place] [address] Performed By: #### U A ####[facility] LABCLIA [id number] [place] [address] [place] Color (U) Yellow Normal Yellow [facility] Comment on above: Order Comment: Speci men Type: URINE SPECIMENOrdering Facility: [facility] Address: [address] [place] [address] Performed By: #### U A ####[facility] LABCLIA [id number] [place] [address] [place] Glucose Test strip (U) [Mass/Vol] 2+ Abnormal Negative [facility] Comment on above: Order Comment: Speci men Type: URINE SPECIMENOrdering Facility: [facility] Address: [address] [place] [address] Performed By: #### U A ####[facility] LABCLIA [id number] [place] [address] [place] Hemoglobin Ql (U) Negative Normal Negative [facility] Comment on above: Order Comment: Speci men Type: URINE SPECIMENOrdering Facility: [facility] Address: [address] [place] [address] Performed By: #### U A ####[facility] LABCLIA [id number] [place] [address] [place] Ketones Ql (U) Negative Normal Negative [facility] Comment on above: Order Comment: Speci men Type: URINE SPECIMENOrdering Facility: [facility] Address: [address] [place] [address] Performed By: #### U A ####[facility] LABCLIA [id number] [place] [address] [place] Leukocyte esterase Test strip Ql (U) Negative Normal Negative [facility] Comment on above: Order Comment: Speci men Type: URINE SPECIMENOrdering Facility: [facility] Address: [address] [place] [address] Performed By: #### U A ####[facility] LABCLIA [id number] [place] [address] [place] Nitrite Ql (U) Negative Normal Negative [facility] Comment on above: Order Comment: Speci men Type: URINE SPECIMENOrdering Facility: [facility] Address: [address] [place] [address] Performed By: #### U A ####[facility] LABIA [id number] [place] [address] [place] pH (U) 6.0 [pH] Normal <8.5 [facility] Comment on above: Order Comment: Speci men Type: URINE SPECIMENOrdering Facility: [facility] Address: [address] [place] [address] Performed By: #### U A ####[facility] LABIA [id number] [place] [address] [place] Protein (U) [Mass/Vol] Negative Normal Negative [facility] Comment on above: Order Comment: Speci men Type: URINE SPECIMENOrdering Facility: [facility] Address: [address] [place] [address] Performed By: #### U A ####[facility] LABIA [id number] [place] [address] [place] Specific gravity (U) [Rel density] 1.010 Normal 1.005-1.030 [facility] Comment on above: Order Comment: Speci men Type: URINE SPECIMENOrdering Facility: [facility] Address: [address] [place] [address] Performed By: #### U A ####[facility] [id number] [address] STATES [place] [facility] Urobilinogen Ql (U) 0.2 EU/dL Normal 0.2-1.0 EU/dL [facility] Comment on above: Order Comment: Speci men Type: URINE SPECIMENOrdering Facility: [facility] Address: [address] [place], [place] [id number] Performed By: #### U A ####[facility] [id number] [place] [address] [place] XR CHEST 2V FRONTAL/LATon XR CHEST 2V FRONTAL/LAT Normal C [facility] XR Chest PA and Lateralon IMPRESSION: See Result. Collection Systems Technician: CHRISTOFER Transcribe Date/Time: Jan 19 2024 11:03A Dictated by : CONSTANTIN GREENE MD This examination was interpreted and the report reviewed and electronically signed by: CONSTANTIN GREENE MD on Jan 19 2024 11:04AM [facility] DIVISION OF RADIOLOGY * * *Final Report* * * DATE OF EXAM: Jan 19 2024 8:50AM JIX [id number] - XR CHEST 2V FRONTAL/LAT / PROCEDURE REASON: multiple diagnoses * * * * Physician Interpretation * * * * EXAMINATION: CHEST RADIOGRAPH (2 VIEW FRONTAL & LATERAL) Clinical History: Disorder of artery or arteriole (HCC) Pre-operative cardiovascular examination Atrial fibrillation, unspecified type ([facility]) Mitral valve disorder M: XC2_6 Comparison: prior chest radiograph dated 03/07/2016 RESULT: Lines, tubes, and devices: Left chest pacemaker with leads over right atrium and right ventricle. Lungs and pleura: Scattered linear opacities probably atelectasis. No focal consolidations or effusions. No pneumothorax. Cardiomediastinal silhouette: Cardiac silhouette within normal limits. Other: Mild degenerative changes of the thoracic spine. DIVISION OF RADIOLOGY Provider, [facility] Clau garcía Swain - 01/19/2024 * * *Final Report* * [...] the thoracic spine. IMPRESSION IMPRESSION: See Result. Collection Systems Technician: CHRISTOFER Transcribe Date/Time: Jan 19 2024 11:03A Dictated by : CONSTANTIN GREENE MD This examination was interpreted and the report reviewed and electronically signed by: CONSTANTIN GREENE MD on Jan 19 2024 11:04AM EST [facility] Radiology Study observation (narrative) [facility] XR Chest PA and LateralOrder ed By: Ccf Provider on 01-19-2024 [facility] aPTT PPPon 01-19-2024 aPTT Coag (PPP) [Time] 30.8 s Normal 23.0-32.4 [facility] Comment on above: Order Comment: Speci men Type: BLOOD SPECIMENOrdering Facility: [facility] Address: [address] [place] [address] Performed By: #### 3 4528-0, 64071-1 ####[facility] LABCLIA [id number] [place] [address] [place] CNPNon 12-06-2023 CNPN Normal [facility] XR CHEST PA+LAT 2 VIEWSon XR CHEST [...] permanent cardiac pacemaker. MACRO: None Normal [facility] [employer] [facility] XR Chest PA and Lateralon EXAMINATION: [...] Dual-chamber permanent cardiac pacemaker. MACRO: None [facility] [employer] Work Phone: Radiology Study observation (narrative) [facility] [employer] Work Phone: XR Chest PA and LateralOrder ed By: Henri Sahni on 07-10-2023 [facility] [employer] Work Phone: Basophil percentageOrdered B y: Jerardo Millan on 03-29-2023 Basophil percentage < 1.0 mg/dL 0.70-1.30 [facility] No Panel InformationOrdered By: Jerardo Millan on 03-29-2023 Bedside Estimated GFR (eGFR) > 60.0000 mL/min >60 [facility] Basophil percentageOrdered B y: Sherif Kiser on 03-28-2023 Chloride [Moles/Vol] 109 mmol/L 98-107 [facility] Glucose [Mass/Vol] 81 mg/dL 74-106 [facility] Potassium [Moles/Vol] 4.2 mmol/L 3.5-5.1 [facility] Sodium [Moles/Vol] 142 mmol/L 136-145 [facility] WBC (Bld) [#/Vol] 7.0 10*3/uL 4.4-11.0 [facility] Blood erythrocytes count (nu mber/volume)Ordered By: Sherif Kiser on 03-28-2023 RBC (Bld) [#/Vol] 4.85 10*6/uL 4.6-6.2 [facility] Blood hemoglobin measurement (mass/volume)Ordered By: Sherif Kiser on 03-28-2023 Hemoglobin (Bld) [Mass/Vol] 14.3 g/dL 13.0-16.5 [facility] Blood platelet mean volumeOr dered By: Sherif Kiser on 03-28-2023 Platelet mean volume (Bld) [Entitic vol] 10.7 fL 6.2-12.0 [facility] Determination of erythrocyte mean corpuscular volume (MCV)Ordered By: Sherif Kiser on 03-28-2023 MCV (RBC) [Entitic vol] 89.3 fL 80-94 [facility] Hematocrit Auto (Bld) [Volum e fraction]Ordered By: Sherif Kiser on 03-28-2023 Hematocrit (Bld) [Volume fraction] 43.3 % 40-54 [facility] Laboratory - Chemistry and C hemistry - challengeOrdered By: Sherif Kiser on 03-28-2023 CO2 [Moles/Vol] 27.0 mmol/L 21.0-32.0 [facility] Urea nitrogen/Creatinine [Mass ratio] 25.0 mg/mg 10-20 [facility] - Hematology and Cell countsOrdered By: Sherif Kiser on 03-28-2023 Erythrocyte distribution width (RBC) [Entitic vol] 43.2 fL 35.1-43.9 [facility] Erythrocyte distribution width (RBC) [Ratio] 13.2 % 11.6-14.6 [facility] MCH (RBC) [Entitic mass] 29.5 pg 27.0-32.0 [facility] MCHC Auto (RBC) [Mass/Vol]Or dered By: Sherif Kiser on 03-28-2023 MCHC (RBC) [Mass/Vol] 33.0 g/dL 32-36 [facility] No Panel InformationOrdered By: Sherif Kiser on 03-28-2023 Estimated GFR (MDRD) Amer 92 mL/min >60 [facility] Comment on above: GFR Calc Estimated GFR (MDRD) Non-Af Amer 76 mL/min >60 [facility] Comment on above: Non- GFR Calc No Panel InformationOrdered By: Jerardo Millan on 03-28-2023 Nasal Screen MRSA/MSSA [facility] Platelets bldOrdered By: Sherif Kiser on 03-28-2023 Platelets (Bld) [#/Vol] 222 10*3/uL 150-450 [facility] Serum or plasma calcium filiberto urement (mass/volume)Ordered By: Sherif Kiser on 03-28-2023 Calcium [Mass/Vol] 9.0 mg/dL 8.5-10.1 [facility] Serum or plasma creatinine m easurement (mass/volume)Ordered By: Sherif Kiser on 03-28-2023 Creatinine [Mass/Vol] 1.04 mg/dL 0.70-1.30 [facility] Comment on above: The validity of the calculated GFR & GFRAA in patients over 70 years has not been determined. Clinical correlation is essential. Serum or plasma urea nitroge n measurement (mass/volume)Ordered By: Sherif Kiser on 03-28-2023 Urea nitrogen [Mass/Vol] 26 mg/dL 7-18 [facility] Thin prep Papanicolaou smear with manual screeningOrdered By: Sherif Kiser on 03-28-2023 Thin prep Papanicolaou smear with manual screening 6 5-15 [facility] Absolute lymphocyte countOrd ered By: Jerardo Millan on 12-20-2022 Lymphocytes Auto (Unsp spec) [#/Vol] 1.71 10*3/uL 0.83-4.51 [facility] Basophil percentageOrdered B y: Jerardo Millan on 12-20-2022 Basophils/100 WBC (Bld) 0.8 % 0-1 [facility] Eosinophils/100 WBC (Bld) 0.8 % 0-5 [facility] Neutrophils (Bld) [#/Vol] 5.8 10*3/uL 2.0-7.7 [facility] Neutrophils/100 WBC (Bld) 68.6 % 47-70 [facility] WBC (Bld) [#/Vol] 8.5 10*3/uL 4.4-11.0 [facility] Basophil percentageOrdered B y: Juana Rodriguez on 12-20-2022 Chloride [Moles/Vol] 112 mmol/L 98-107 [facility] Glucose [Mass/Vol] 91 mg/dL 74-106 [facility] Potassium [Moles/Vol] 4.1 mmol/L 3.5-5.1 [facility] Sodium [Moles/Vol] 143 mmol/L 136-145 [facility] Blood erythrocytes count (nu mber/volume)Ordered By: Jerardo Millan on 12-20-2022 RBC (Bld) [#/Vol] 4.27 10*6/uL 4.6-6.2 [facility] Blood hemoglobin measurement (mass/volume)Ordered By: Jerardo Millan on 12-20-2022 Hemoglobin (Bld) [Mass/Vol] 12.9 g/dL 13.0-16.5 [facility] Blood lymphocytes/100 leukoc ytesOrdered By: Jerardo Millan on 12-20-2022 Lymphocytes/100 WBC (Bld) 20.1 % 19-41 [facility] Blood monocytes/100 leukocyt esOrdered By: Jerardo Millan on 12-20-2022 Monocytes/100 WBC (Bld) 9.5 % 0-10 [facility] Blood platelet mean volumeOr dered By: Jerardo Millan on 12-20-2022 Platelet mean volume (Bld) [Entitic vol] 11.5 fL 6.2-12.0 [facility] Determination of erythrocyte mean corpuscular volume (MCV)Ordered By: Jerardo Millan on 12-20-2022 MCV (RBC) [Entitic vol] 91.6 fL 80-94 [facility] Hematocrit Auto (Bld) [Volum e fraction]Ordered By: Jerardo Millan on 12-20-2022 Hematocrit (Bld) [Volume fraction] 39.1 % 40-54 [facility] Laboratory - Chemistry and C hemistry - challengeOrdered By: Juana Rodriguez on 12-20-2022 CO2 [Moles/Vol] 29.0 mmol/L 21.0-32.0 [facility] Urea nitrogen/Creatinine [Mass ratio] 20.7 mg/mg 10-20 [facility] - Hematology and Cell countsOrdered By: Jerardo Millan on 12-20-2022 Erythrocyte distribution width (RBC) [Entitic vol] 46.1 fL 35.1-43.9 [facility] Erythrocyte distribution width (RBC) [Ratio] 13.6 % 11.6-14.6 [facility] Immature granulocytes/100 WBC (Bld) 0.200 % 0.0-0.9 [facility] Comment on above: IG% - Immature Granu locytes (promyelocytes, myelocytes and metamyelocytes) > 1% indicates that a LEFT SHIFT is Present. MCH (RBC) [Entitic mass] 30.2 pg 27.0-32.0 [facility] Nucleated RBC/100 WBC (Bld) [Ratio] 0 % 0-5 [facility] MCHC Auto (RBC) [Mass/Vol]Or dered By: Jerardo Millan on 12-20-2022 MCHC (RBC) [Mass/Vol] 33.0 g/dL 32-36 [facility] No Panel InformationOrdered By: Juana Rodriguez on 12-20-2022 Estimated Creatinine Clearance Calc 87.86 ml/min [facility] Estimated GFR (MDRD) Amer 106 mL/min >60 [facility] Comment on above: GFR Calc Estimated GFR (MDRD) Non-Af Amer 88 mL/min >60 [facility] Comment on above: Non- GFR Calc Platelets bldOrdered By: Wang Millan on 12-20-2022 Platelets (Bld) [#/Vol] 194 10*3/uL 150-450 [facility] Serum or plasma calcium filiberto urement (mass/volume)Ordered By: Juana Rodriguez on 12-20-2022 Calcium [Mass/Vol] 8.8 mg/dL 8.5-10.1 [facility] Serum or plasma creatinine m easurement (mass/volume)Ordered By: Juana Rodriguez on 12-20-2022 Creatinine [Mass/Vol] 0.92 mg/dL 0.70-1.30 [facility] Comment on above: The validity of the calculated GFR & GFRAA in patients over 70 years has not been determined. Clinical correlation is essential. Serum or plasma urea nitroge n measurement (mass/volume)Ordered By: Juana Rodriguez on 12-20-2022 Urea nitrogen [Mass/Vol] 19 mg/dL 7-18 [facility] Thin prep Papanicolaou smear with manual screeningOrdered By: Juana Rodriguez on 12-20-2022 Thin prep Papanicolaou smear with manual screening 2 5-15 [facility] Basophil percentageOrdered B y: Asad Mcdonough on 12-19-2022 Bilirubin [Mass/Vol] 0.60 mg/dL 0.20-1.00 [facility] Comment on above: For patients on eltr ombopag therapy, use of Dimension [place] TBIL is not recommended. Protein [Mass/Vol] 7.3 g/dL 6.4-8.2 [facility] Laboratory - Chemistry and C hemistry - challengeOrdered By: Asad Mcdonough on 12-19-2022 ALP [Catalytic activity/Vol] 53 U/L 45-117 [facility] ALT [Catalytic activity/Vol] 31 U/L 16-61 [facility] Globulin (S) [Mass/Vol] 3.1 g/dL 2.2-4.2 [facility] Serum or plasma albumin filiberto urement (mass/volume)Ordered By: Asad Mcdonough on 12-19-2022 Albumin [Mass/Vol] 4.2 g/dL 3.2-5.0 [facility] Serum or plasma albumin/glob ulin mass ratioOrdered By: Asad Mcdonough on 12-19-2022 Albumin/Globulin [Mass ratio] 1.4 {ratio} 0.9-2.4 [facility] Thin prep Papanicolaou smear with manual screeningOrdered By: Asad Ceasar on 12-19-2022 Thin prep Papanicolaou smear with manual screening 14 U/L 1537 [facility] COVID-19/INFLUENZA A,B MOLEC ULARon 03-07-2021 SARS-CoV-2 (COVID-19) Ab IA Ql SARS-COV-2 (ROXIE): Not Detected INFLUENZA A (ROXIE): Not Detected INFLUENZA B (ROXIE): Not Detected Normal Not Detected [facility] Comment on above: Order Comment: This test [...] at the following links: For Healthcare Providers: https://www.fda.gov/media/908268/download For Patients: https://www.fda.gov/media/704754/download Performed By: #### L [id number] #### [facility] [address] [place], [place] [address] Chiki Arreguin M[address]D. [id number] CT HEAD OR BRAIN WITHOUT CON TRASTon [...] PM EST Transcribed by: SHALINI KHAN on [place] Mar 07, 2021 3:32:39 PM EST Finalized by: SHALINI KHAN on [place] Mar 07, 2021 3:32:39 PM EST Normal [facility] Comment on above: Order Comment: Injur y/Trauma or Illness?:Illness/Other How long have you had these symptoms (acute/chronic)?:Acute Reason for exam?:dizziness Type of Exam?:Initial Additional signs and symptoms?:n/a MAGNESIUMon 12-09-2020 Magnesium [Mass/Vol] 2.2 mg/dL Normal 1.6-2.6 [facility] Comment on above: Performed By: #### M GO #### [facility] (DEFAULT) [address] [address] T4 FREEon 12-09-2020 Free T4 [Mass/Vol] 1.37 ng/dL Normal 0.89-1.76 [facility] Comment on above: Performed By: #### F T4, TSH #### [facility] (DEFAULT) [address] [address] TSHon 12-09-2020 TSH 0.649 uIU/mL Normal 0.550-4.780 [facility] Comment on above: Performed By: #### F T4, TSH #### [facility] (DEFAULT) [address] [address] ALK PHOSPHATASEon 06-02-2020 ALP [Catalytic activity/Vol] 47 U/L Normal 32-126 [facility] Comment on above: Performed By: #### A LP #### [facility] (DEFAULT) [address] [place] [address] CHEM 6 (LYTES, BUN CREA)on 0 06-02-2020 Anion gap [Moles/Vol] 12 mmol/L Normal 7-17 [facility] Comment on above: Performed By: #### C HM6, ALTO, HFP, MGO #### [facility] (DEFAULT) [address] [place] [address] Chloride [Moles/Vol] 107 mmol/L Normal 98-108 [facility] Comment on above: Performed By: #### C HM6, ALTO, HFP, MGO #### [facility] (DEFAULT) [address] [place] [address] CO2 [Moles/Vol] 27 mmol/L Normal 22-30 [facility] Comment on above: Performed By: #### C HM6, ALTO, HFP, MGO #### [facility] (DEFAULT) [address] [place] [address] Creatinine [Mass/Vol] 1.10 mg/dL Normal 0.70-1.30 [facility] Comment on above: Performed By: #### C HM6, ALTO, HFP, MGO #### [facility] (DEFAULT) [address] [place] [address] EST GFR, >=60 Normal >=60 [facility] Comment on above: Performed By: #### C HM6, ALTO, HFP, MGO #### [facility] (DEFAULT) [address] [place] [address] EST GFR,Non >=60 Normal >=60 [facility] Comment on above: Performed By: #### C HM6, ALTO, HFP, MGO #### [facility] (DEFAULT) [address] [place] [address] Potassium [Moles/Vol] 4.4 mmol/L Normal 3.5-5.0 [facility] Comment on above: Performed By: #### C HM6, ALTO, HFP, MGO #### [facility] (DEFAULT) [address] [place] [address] Sodium [Moles/Vol] 142 mmol/L Normal 133-143 [facility] Comment on above: Performed By: #### C HM6, ALTO, HFP, MGO #### [facility] (DEFAULT) [address] [place] [address] Urea nitrogen [Mass/Vol] 21 mg/dL Normal 7-22 [facility] Comment on above: Performed By: #### C HM6, ALTO, HFP, MGO #### [facility] (DEFAULT) [address] [place] [address] Urea nitrogen/Creatinine [Mass ratio] 19 mg/mg Normal [facility] Comment on above: Performed By: #### C HM6, ALTO, HFP, MGO #### [facility] (DEFAULT) [address] [place] [address] HEPATIC FUNCTION PANELon Albumin [Mass/Vol] 4.6 g/dL Normal 3.5-5.0 [facility] Comment on above: Performed By: #### C HM6, ALTO, HFP, MGO #### [facility] (DEFAULT) [address] [place] [address] ALP [Catalytic activity/Vol] 46 U/L Normal 32-126 [facility] Comment on above: Performed By: #### C HM6, ALTO, HFP, MGO #### [facility] (DEFAULT) [address] [place] [address] ALT [Catalytic activity/Vol] 30 U/L Normal 10-52 [facility] Comment on above: Performed By: #### C HM6, ALTO, HFP, MGO #### [facility] (DEFAULT) [address] [place] [address] AST [Catalytic activity/Vol] 25 U/L Normal 14-40 [facility] Comment on above: Performed By: #### C HM6, ALTO, HFP, MGO #### [facility] (DEFAULT) [address] [place] [address] Bilirubin [Mass/Vol] 0.5 mg/dL Normal <1.5 [facility] Comment on above: Performed By: #### C HM6, ALTO, HFP, MGO #### [facility] (DEFAULT) [address] [place] [address] Bilirubin.indirect [Mass/Vol] 0.1 mg/dL Normal <0.3 [facility] Comment on above: Performed By: #### C HM6, ALTO, HFP, MGO #### [facility] (DEFAULT) [address] [place] [address] Protein [Mass/Vol] 6.8 g/dL Normal 6.4-8.3 [facility] Comment on above: Performed By: #### C HM6, ALTO, HFP, MGO #### [facility] (DEFAULT) [address] [place] [address] MAGNESIUMon 06-02-2020 Magnesium [Mass/Vol] 2.3 mg/dL Normal 1.6-2.6 [facility] Comment on above: Performed By: #### C HM6, ALTO, HFP, MGO #### [facility] (DEFAULT) [address] [place] [address] T4 FREEon 06-02-2020 Free T4 [Mass/Vol] 1.24 ng/dL Normal 0.89-1.76 [facility] Comment on above: Performed By: #### F T4 #### [facility] (DEFAULT) [address] [address] TSHon 06-02-2020 TSH 0.538 uIU/mL Low 0.550-4.780 [facility] Comment on above: Performed By: #### T SH #### [facility] (DEFAULT) [address] [place] [address] XR CHEST PA AND LATERALon XR CHEST [...] appears unchanged from December 01, 2017. Normal [facility] ECHOCARDIOGRAMon 05-26-2020 Echocardiography ? Technically difficult study. [...] is no pericardial effusion present. Facility [facility] Patient Information Patient Name Tre Quiñones [...] - [place] 05/26/2020 Eleuterio Santillan MD Echo Tolley 05/26/2020 Wall Scoring Score Index: 1.00 The [...] include patient body habitus. Imaging system used: Miradia. Indications for study: dyspnea. Exam Details Performed Procedure Technologist Supporting Staff Performing Physician ECHOCARDIOGRAM W/O 3D W/CONTRAST Samanta Amin RDCS Appointment Date/Status Modality Department 05/26/2020 Arrived ECHO TESTING, [facility] ECHOCARDIOGRAPHY ROSS (more content not included)... Abnormal [facility] NUC MYOCARD PERF STRESS MIBI PHARMon 05-26-2020 [...] Intravenous device wires are noted. Facility [facility] Patient Information Patient Name Tre Quiñones [...] Role Read Date Jimenez Burrell MD ECG Tolley, SPECT Tolley, Fellow - [place] 05/26/2020 Min Bae MD Test Teacher, ECG Tolley, SPECT Tolley 05/26/2020 Stress Measurements Baseline Vitals-Supine Baseline HR [...] intensity. The (more content not included)... Normal [facility] Office Visiton 09-07-2016 Documentation of current medications (procedure) Done Invalid Interpretation Code [facility] Work Phone: Tobacco smoking status NHIS Former smoker [facility] Work Phone: Tobacco use CPHS Former smoker Invalid Interpretation Code [facility] Work Phone: Lab Report: BMPon 11-30-2012 Calcium 9.1 mg/dL Normal 8.5-10.1 [facility] Work Phone: Chloride 105 mmol/L Normal 98-107 [facility] Work Phone: Creatinine 0.8 mg/dL Normal 0.8-1.3 [facility] Work Phone: Glucose 80 mg/dL Normal 70-110 [facility] Work Phone: Glucose [Mass/Vol] 80 mg/dL Normal 70-110 [facility] Work Phone: Potassium 4.2 mmol/L Normal 3.5-5.1 [facility] Work Phone: Sodium 141 mmol/L Normal 136-145 [facility] Work Phone: Urea nitrogen 21 mg/dL High 7-18 [facility] Work Phone: Lab Report: BTNPon 3 BTNP 26.9 pg/mL Normal <100 [facility] Work Phone: GE use only - for Link[employer] import when terms are not otherwise specified 26.9 pg/mL Normal <100 [facility] Work Phone: Lab Report: CBCon 11-30-2012 Erythrocytes (RBC) 4.97 10*6/uL Normal 4.6-6.2 [facility] Work Phone: Hematocrit (Bld) [Volume fraction] 42.8 % Normal 40-54 [facility] Work Phone: Hematocrit (HCT) 42.8 % Normal 40-54 [facility] Work Phone: Hemoglobin (HGB) 14.6 g/dL Normal 13.0-16.5 [facility] Work Phone: Platelets 187 10*3/mm3 Normal 150-450 [facility] Work Phone: Platelets (Bld) [#/Vol] 187 10*3/mm3 Normal 150-450 [facility] Work Phone: RBC (Bld) [#/Vol] 4.97 10*6/uL Normal 4.6-6.2 [facility] Work Phone: WBC (Bld) [#/Vol] 6.8 10*3/uL Normal 4.4-11.0 [facility] [place] [facility] Work Phone: WBC (Leukocytes) 6.8 10*3/uL Normal 4.4-11.0 [facility] Work Phone: Lab Report: TSHon 11-30-2012 Thyroid stimulating hormone (TSH) 0.96 u[iU]/mL Normal 0.358-3.74 [facility] Work Phone: Office Visit: [facility] 12-01-19 13 Documentation of current medications (procedure) Done Invalid Interpretation Code [facility] Work Phone: Replaced Document: Chavo KAM Observationson 11-30-2012 EKG QRS axis -4 deg [facility] Work Phone: electrocardiogram interpretation Sinus Rhythm WITHIN NORMAL LIMITS Invalid Interpretation Code [facility] Work Phone: Interpretation Sinus Rhythm WITHIN NORMAL LIMITS [facility] Work Phone: P [place] 41 deg [facility] Work Phone: P wave axis, electrocardiogram 41 deg Invalid Interpretation Code [facility] Work Phone: OK Interval 184 ms [facility] Work Phone: OK interval, electrocardiogram 184 ms Invalid Interpretation Code [facility] Work Phone: Pulse (Heart Rate) 398 ms Invalid Interpretation Code [facility] Work Phone: Pulse (Heart Rate) 78 /min Invalid Interpretation Code [facility] Work Phone: QRS axis, electrocardiogram -4 deg Invalid Interpretation Code [facility] Work Phone: QRS Duration 98 ms [facility] Work Phone: QRS duration, electrocardiogram 98 ms Invalid Interpretation Code [facility] Work Phone: QT Interval new path ms [facility] Work Phone: QT interval, electrocardiogram new path ms Invalid Interpretation Code [facility] Work Phone: T [place] 22 deg [facility] Work Phone: T wave axis, electrocardiogram 22 deg Invalid Interpretation Code [facility] Work Phone: Clinical 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 Anion gap 5 mmol/L Invalid Interpretation Code [facility] Work Phone: Anion gap [Moles/Vol] 5 mmol/L [facility] Work Phone: BUN/Creatinine Ratio 14.4 mg/mg Invalid Interpretation Code [facility] Work Phone: CO2 29.0 mmol/L Invalid Interpretation Code [facility] Work Phone: CO2 (BldV) [Partial pressure] 29.0 mmol/L [facility] Work Phone: MCH 30.8 pg Invalid Interpretation Code [facility] Work Phone: MCH (RBC) [Entitic mass] 30.8 pg [facility] Work Phone: MCV 86.8 fL Invalid Interpretation Code [facility] Work Phone: MCV (RBC) [Entitic vol] 86.8 fL [facility] Work Phone: Clinical 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: 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 Tobacco use CPHS former smoker Invalid Interpretation Code [facility] Work Phone: Vital Signs Date Time Vital Sign Value Performing Clinician Facility 01-13-2025 13:46-0400 Body height 182.88 cm [facility] 01-13-2025 13:46-0400 Body mass index (BMI) [Ratio] 43.7 kg/m2 [facility] 01-13-2025 13:46-0400 Body weight 146.05 kg [facility] 01-13-2025 13:46-0400 Diastolic blood pressure 75 mm[Hg] [facility] 01-13-2025 13:46-0400 Heart rate 60 /min [facility] 01-13-2025 13:46-0400 Respiratory rate 16 /min [facility] 01-13-2025 13:46-0400 Systolic blood pressure 122 mm[Hg] [facility] 12-16-2024 15:23-0400 Body height 183 cm Brittany Bundy MD Work Phone: [facility] 12-16-2024 15:23-0400 Body height 182.88 cm Brittany Bundy MD Work Phone: [facility] 12-16-2024 15:23-0400 Body mass index (BMI) [Ratio] 42.2 kg/m2 Brittany Bundy MD Work Phone: [facility] 12-16-2024 15:23-0400 Body weight 141 kg Brittany Bundy MD Work Phone: [facility] 12-16-2024 15:23-0400 Body weight 140.62 kg Brittany Bundy MD Work Phone: [facility] 12-16-2024 15:23-0400 Diastolic blood pressure 66 mm[Hg] Brittany Bundy MD Work Phone: [facility] 12-16-2024 15:23-0400 HGHTCHNVIS Brittany Bundy MD Work Phone: [facility] 12-16-2024 15:23-0400 Systolic blood pressure 114 mm[Hg] Brittany Bundy MD Work Phone: [facility] 12-16-2024 15:23-0400 SILVIA Bundy MD Work Phone: [facility] 12-12-2024 11:15-0400 Diastolic blood pressure 90 mm[Hg] Mri Bore/1.5t) [facility] 12-12-2024 11:15-0400 Heart rate 70 /min Mri Bore/1.5t) [facility] 12-12-2024 11:15-0400 Respiratory rate 15 /min Mri Bore/1.5t) [facility] 12-12-2024 11:15-0400 SaO2% (BldA) [Mass fraction] 96 % Mri Bore/1.5t) [facility] 12-12-2024 11:15-0400 Systolic blood pressure 126 mm[Hg] Mri Bore/1.5t) [facility] 11-01-2024 08:48-0400 Diastolic blood pressure 64 mm[Hg] Denny Cifuentes MD Work Phone: [facility] 11-01-2024 08:48-0400 Heart rate 60 /min Denny Cifuentes MD Work Phone: [facility] 11-01-2024 08:48-0400 Systolic blood pressure 129 mm[Hg] Denny Kitchen Work Phone: [facility] 09-18-2024 11:55-0400 Body height 182.[address] Omer Wray MD Work Phone: [facility] 09-18-2024 11:55-0400 Body mass index (BMI) [Ratio] 44.4 kg/m2 Dr. Omer Wray MD Work Phone: [facility] 09-18-2024 11:55-0400 Body weight 148.[address] Omer Wray MD Work Phone: [facility] 09-18-2024 11:55-0400 Diastolic blood pressure 76 mm[Hg] Dr. Omer Wray MD Work Phone: [facility] 09-18-2024 11:55-0400 Heart rate 66 /min Dr. Omer Wray MD Work Phone: [facility] 09-18-2024 11:55-0400 Respiratory rate 20 /min Dr. Omre Wray MD Work Phone: [facility] 09-18-2024 11:55-0400 Systolic blood pressure 136 mm[Hg] Dr. Omer Wray MD Work Phone: [facility] 08-13-2024 13:06-0400 Body temperature 98.1 [degF] Dr. Omer Wray MD Work Phone: [facility] 08-13-2024 13:06-0400 Diastolic blood pressure 55 mm[Hg] Dr. Omer Wray MD Work Phone: [facility] 08-13-2024 13:06-0400 Heart rate 60 /min Dr. Omer Wray MD Work Phone: [facility] 08-13-2024 13:06-0400 Respiratory rate 15 /min Dr. Omer Wray MD Work Phone: [facility] 08-13-2024 13:06-0400 SaO2% (BldA) [Mass fraction] 96 % Dr. Omer Wray MD Work Phone: [facility] 08-13-2024 13:06-0400 Systolic blood pressure 141 mm[Hg] Dr. Omer Wray MD Work Phone: [facility] 08-13-2024 11:38-0400 Body mass index (BMI) [Ratio] 42.8 kg/m2 Dr. Omer Wray MD Work Phone: [facility] 08-13-2024 11:38-0400 Body weight 143.[address] Omer Wray MD Work Phone: [facility] 02-06-2024 08:54-0400 Body height 182.9 cm Liz Madsen APRN.CNP Work Phone: [facility] 02-06-2024 08:54-0400 Body mass index (BMI) [Ratio] 43.67 kg/m2 Andegoni Sandalakis QUALITY MANAGEMENT COORDINATOR.PEELER OPERATOR Work Phone: [facility] 02-06-2024 08:54-0400 Body temperature 99.1 [degF] Andegoni Sandalakis QUALITY MANAGEMENT COORDINATOR.PEELER OPERATOR Work Phone: [facility] 02-06-2024 08:54-0400 Body weight 146.06 kg Andegoni Sandalakis QUALITY MANAGEMENT COORDINATOR.PEELER OPERATOR Work Phone: [facility] 02-06-2024 08:54-0400 Diastolic blood pressure 56 mm[Hg] Andegoni Sandalakis QUALITY MANAGEMENT COORDINATOR.PEELER OPERATOR Work Phone: [facility] 02-06-2024 08:54-0400 Heart rate 70 /min Andegoni Sandalakis QUALITY MANAGEMENT COORDINATOR.PEELER OPERATOR Work Phone: [facility] 02-06-2024 08:54-0400 Respiratory rate 16 /min Andegoni Sandalakis QUALITY MANAGEMENT COORDINATOR.PEELER OPERATOR Work Phone: [facility] 02-06-2024 08:54-0400 SaO2% (BldA) [Mass fraction] 95 % Andegoni Sandalakis QUALITY MANAGEMENT COORDINATOR.PEELER OPERATOR Work Phone: [facility] 02-06-2024 08:54-0400 Systolic blood pressure 105 mm[Hg] Andegoni Sandalakis QUALITY MANAGEMENT COORDINATOR.PEELER OPERATOR Work Phone: [facility] 01-27-2024 07:29-0400 SaO2% (BldA) [Mass fraction] 100 % OMER WRAY [facility] Comment on above: Order Comment: Specimen Type: ARTERIAL B LOOD SPECIMENOrdering Facility: [facility] Address: [address] [place] [address] Performed By: #### A LLBG ####[facility] LABCLIA [id number] [address] [place] 01-27-2024 03:32-0400 SaO2% (BldA) [Mass fraction] 99 % OMER [facility] Comment on above: Order Comment: Specimen Type: ARTERIAL B LOOD SPECIMENOrdering Facility: [facility] Address: [address] [place] [address] Performed By: #### A LLBG ####[facility] LABCLIA [id number] [address] [place] 01-27-2024 01:34-0400 SaO2% (BldA) [Mass fraction] 100 % [facility] Comment on above: Order Comment: Specimen Type: ARTERIAL B LOOD SPECIMENOrdering Facility: [facility] Address: [address] [place] [address] Performed By: #### A LLBG ####[facility] LABCLIA [id number] [address] [place] 01-26-2024 23:24-0400 SaO2% (BldA) [Mass fraction] 94 % [facility] Comment on above: Order Comment: Specimen Type: ARTERIAL B LOOD SPECIMENOrdering Facility: [facility] Address: [address] [place] [address] Performed By: #### A LLBG ####[facility] LABCLIA [id number] [address] [place] 01-26-2024 19:15-0400 SaO2% (BldA) [Mass fraction] 99 % [facility] Comment on above: Order Comment: Specimen Type: ARTERIAL B LOOD SPECIMENOrdering Facility: [facility] Address: [address] [place] [address] Performed By: #### A LLBG ####[facility] LABCLIA [id number] [place] [id number] [place] 01-26-2024 15:19-0400 SaO2% (BldA) [Mass fraction] 100 % [facility] Comment on above: Order Comment: Specimen Type: ARTERIAL B LOOD SPECIMENOrdering Facility: [facility] Address: [address] [place], [place] [address] Performed By: #### A LLBG ####[facility] LABCLIA [id number] [address] [address] [place] 01-26-2024 11:20-0400 SaO2% (BldA) [Mass fraction] 99 % [facility] Comment on above: Order Comment: Specimen Type: ARTERIAL B LOOD SPECIMENOrdering Facility: [facility] Address: [address] [place] [address] Performed By: #### A LLBG ####[facility] LABIA [id number] [place] [id number] [place] 01-26-2024 07:28-0400 SaO2% (BldA) [Mass fraction] 99 % [facility] Comment on above: Order Comment: Specimen Type: ARTERIAL B LOOD SPECIMENOrdering Facility: [facility] Address: [address] [place], [place] [address] Performed By: #### A LLBG ####[facility] LABIA [id number] [address] [address] [place] 01-26-2024 03:31-0400 SaO2% (BldA) [Mass fraction] 100 % [facility] Comment on above: Order Comment: Specimen Type: ARTERIAL B LOOD SPECIMENOrdering Facility: [facility] Address: [address] [place], [place] [address] Performed By: #### A LLBG ####[facility] LABIA [id number] [address] [address] [place] 01-26-2024 00:24-0400 SaO2% (BldA) [Mass fraction] 100 % [facility] Comment on above: Order Comment: Specimen Type: ARTERIAL B LOOD SPECIMENOrdering Facility: [facility] Address: [address] [place] [address] Performed By: #### A LLBG ####[facility] LABCLIA [id number] [address] [address] [place] 01-25-2024 21:27-0400 SaO2% (BldA) [Mass fraction] 99 % OMER NILS [facility] Comment on above: Order Comment: Specimen Type: ARTERIAL B LOOD SPECIMENOrdering Facility: [facility] Address: [address] [place], [place] [address] Performed By: #### A LLBG ####[facility] LABCLIA [id number] [place] [id number] [place] 01-25-2024 19:23-0400 SaO2% (BldA) [Mass fraction] 99 % [facility]ER [facility] Comment on above: Order Comment: Specimen Type: ARTERIAL B LOOD SPECIMENOrdering Facility: [facility] Address: [address] [place] [address] Performed By: #### A LLBG ####[facility] LABCLIA [id number] [place] [id number] [place] 01-25-2024 18:17-0400 SaO2% (BldA) [Mass fraction] 98 % [facility] Comment on above: Order Comment: Specimen Type: ARTERIAL B LOOD SPECIMENOrdering Facility: [facility] Address: [address] [place], [place] [address] Performed By: #### A LLBG ####[facility] LABIA [id number] [address] [address] [place] 01-25-2024 15:49-0400 SaO2% (BldA) [Mass fraction] 100 [facility] Comment on above: Order Comment: Specimen Type: ARTERIAL B LOOD SPECIMENOrdering Facility: [facility] Address: [address] [place], [place] [address] Performed By: #### A LLBG ####[facility] LABIA [id number] [address] [address] [place] 01-25-2024 13:24-0400 SaO2% (BldA) [Mass fraction] 100 % OMER NILS [facility] Comment on above: Order Comment: Specimen Type: ARTERIAL B LOOD SPECIMENOrdering Facility: [facility] Address: [address] [place], [place] [address] Performed By: #### A LLBG ####[facility] [id number] [place] [id number] [place] 01-25-2024 11:23-0400 SaO2% (BldA) [Mass fraction] 99 % OMER NILS [facility] Comment on above: Order Comment: Specimen Type: ARTERIAL B LOOD SPECIMENOrdering Facility: [facility] Address: [address] [place], [place] [address] Performed By: #### A LLBG ####[facility] [id number] [place] [id number] [place] 01-25-2024 08:28-0400 SaO2% (BldA) [Mass fraction] 99 % OMER NILS [facility] Comment on above: Order Comment: Specimen Type: ARTERIAL B LOOD SPECIMENOrdering Facility: [facility] Address: [address] [place], [place] [address] Performed By: #### A LLBG ####[facility] [id number] [address] [address] [place] 01-25-2024 05:12-0400 SaO2% (BldA) [Mass fraction] 99 % OMER [facility] Comment on above: Order Comment: Specimen Type: ARTERIAL B LOOD SPECIMENOrdering Facility: [facility] Address: [address] [place], [place] [address] Performed By: #### A LLBG ####[facility] LABIA [id number] [place] [id number] [place] 01-25-2024 03:44-0400 SaO2% (BldA) [Mass fraction] 99 % OM[address] [facility] Comment on above: Order Comment: Specimen Type: ARTERIAL B LOOD SPECIMENOrdering Facility: [facility] Address: [address] [place], [place] [address] Performed By: #### A LLBG ####[facility] [id number] [place] [id number] [place] 01-25-2024 01:33-0400 SaO2% (BldA) [Mass fraction] 99 % OMER [facility] Comment on above: Order Comment: Specimen Type: ARTERIAL B LOOD SPECIMENOrdering Facility: [facility] Address: [address] [place] [address] Performed By: #### A LLBG ####[facility] [id number] [place] [id number] [place] 01-24-2024 23:39-0400 SaO2% (BldA) [Mass fraction] 99 % [address] [facility] Comment on above: Order Comment: Specimen Type: ARTERIAL B LOOD SPECIMENOrdering Facility: [facility] Address: [address] [place], [place] [address] Performed By: #### A LLBG ####[facility] [id number] [place] [id number] [place] 01-24-2024 21:27-0400 SaO2% (BldA) [Mass fraction] 100 % OM[facility] Comment on above: Order Comment: Specimen Type: ARTERIAL B LOOD SPECIMENOrdering Facility: [facility] Address: [address] [place] [address] Performed By: #### A LLBG ####[facility] LABCLIA [id number] [place] [id number] [place] 01-24-2024 19:21-0400 SaO2% (BldA) [Mass fraction] 99 % OMER [facility] Comment on above: Order Comment: Specimen Type: ARTERIAL B LOOD SPECIMENOrdering Facility: [facility] Address: [address] [place] [address] Performed By: #### A LLBG ####[facility] LABIA [id number] [place] [id number] [place] 01-24-2024 17:30-0400 SaO2% (BldA) [Mass fraction] 99 % OMER [facility] Comment on above: Order Comment: Specimen Type: ARTERIAL B LOOD SPECIMENOrdering Facility: [facility] Address: [address] [place] [address] Performed By: #### A LLBG ####[facility] LABIA [id number] [place] [id number] [place] 01-24-2024 15:26-0400 SaO2% (BldA) [Mass fraction] 99 % OMER [facility] Comment on above: Order Comment: Specimen Type: ARTERIAL B LOOD SPECIMENOrdering Facility: [facility] Address: [address] [place] [address] Performed By: #### A LLBG ####[facility] LABIA [id number] [place] [id number] [place] 01-24-2024 13:29-0400 SaO2% (BldA) [Mass fraction] 99 % OM[facility] Comment on above: Order Comment: Specimen Type: ARTERIAL B LOOD SPECIMENOrdering Facility: [facility] Address: [address] [place] [address] Performed By: #### A LLBG ####[facility] LABIA [id number] [place] [phone] [place] 01-24-2024 11:21-0400 SaO2% (BldA) [Mass fraction] 99 % OMER [facility] Comment on above: Order Comment: Specimen Type: ARTERIAL B LOOD SPECIMENOrdering Facility: [facility] Address: [address] [place] [address] Performed By: #### A LLBG ####[facility] LABCLIA [id number] [place] [id number] [place] 01-24-2024 09:29-0400 SaO2% (BldA) [Mass fraction] 99 % OMER [facility] Comment on above: Order Comment: Specimen Type: ARTERIAL B LOOD SPECIMENOrdering Facility: [facility] Address: [address] [place] [address] Performed By: #### A LLBG ####[facility] LABCLIA [id number] [place] [phone] [place] 01-24-2024 08:18-0400 SaO2% (BldA) [Mass fraction] 91 % OMER [facility] Comment on above: Order Comment: Specimen Type: ARTERIAL B LOOD SPECIMENOrdering Facility: [facility] Address: [address] [place] [address] Performed By: #### A LLBG ####[facility] LABCLIA [id number] [place] [id number] [place] 01-24-2024 07:42-0400 SaO2% (BldA) [Mass fraction] 98 % OMER NILS [facility] Comment on above: Order Comment: Specimen Type: ARTERIAL B LOOD SPECIMENOrdering Facility: [facility] Address: [address] [place] [address] Performed By: #### A LLBG ####[facility] LABCLIA [id number] [place] [phone] [facility] 01-24-2024 05:27-0400 SaO2% (BldA) [Mass fraction] 98 % OMER [facility] Comment on above: Order Comment: Specimen Type: ARTERIAL B LOOD SPECIMENOrdering Facility: [facility] Address: [address] [place], [place] [address] Performed By: #### A LLBG ####[facility] LABCLIA [id number] [place] [phone] [place] [facility] 01-24-2024 03:29-0400 SaO2% (BldA) [Mass fraction] 99 % OMER [facility] Comment on above: Order Comment: Specimen Type: ARTERIAL B LOOD SPECIMENOrdering Facility: [facility] Address: [address] [place], [place] [address] Performed By: #### A LLBG ####[facility] LABCLIA [id number] [place] [phone] [facility] 01-24-2024 01:30-0400 SaO2% (BldA) [Mass fraction] 99 % OMER [facility] Comment on above: Order Comment: Specimen Type: ARTERIAL B LOOD SPECIMENOrdering Facility: [facility] Address: [address] [place], [place] [address] Performed By: #### A LLBG ####[facility] LABCLIA [id number] [place] [phone] [facility] 01-23-2024 23:43-0400 SaO2% (BldA) [Mass fraction] 98 % OMER [facility] Comment on above: Order Comment: Specimen Type: ARTERIAL B LOOD SPECIMENOrdering Facility: [facility] Address: [address] [place], [place] [address] Performed By: #### A LLBG ####[facility] LABCLIA [id number] [address] [address] [facility] 01-23-2024 21:33-0400 SaO2% (BldA) [Mass fraction] 99 % OMER [facility] Comment on above: Order Comment: Specimen Type: ARTERIAL B LOOD SPECIMENOrdering Facility: [facility] Address: [address] [place], [place] [address] Performed By: #### A LLBG ####[facility] LABCLIA [id number] [place] [phone] [place] 01-23-2024 19:57-0400 SaO2% (BldA) [Mass fraction] 99 % OMER [facility] Comment on above: Order Comment: Specimen Type: ARTERIAL B LOOD SPECIMENOrdering Facility: [facility] Address: [address] [place], [place] [address] Performed By: #### A LLBG ####[facility] LABIA [id number] [place] [phone] [place] 01-23-2024 18:07-0400 SaO2% (BldA) [Mass fraction] 100 % OMER [facility] Comment on above: Order Comment: Specimen Type: ARTERIAL B LOOD SPECIMENOrdering Facility: [facility] Address: [address] [place], [place] [address] Performed By: #### A LLBG ####[facility] LABIA [id number] [place] [phone] [place] 01-23-2024 16:55-0400 SaO2% (BldA) [Mass fraction] 99 % OMER [facility] Comment on above: Order Comment: Specimen Type: ARTERIAL B LOOD SPECIMENOrdering Facility: [facility] Address: [address] [place] [address] Performed By: #### A LLBG ####[facility] LABIA [id number] [address] [address] [place] 01-23-2024 15:39-0400 SaO2% (BldA) [Mass fraction] 99 % OMER [facility] Comment on above: Order Comment: Specimen Type: ARTERIAL B LOOD SPECIMENOrdering Facility: [facility] Address: [address] [place] [address] Performed By: #### A LLBG ####[facility] LABCLIA [id number] [place] [id number] [place] 01-23-2024 15:10-0400 SaO2% (BldA) [Mass fraction] 99 % OMER [facility] Comment on above: Order Comment: Specimen Type: ARTERIAL B LOOD SPECIMENOrdering Facility: [facility] Address: [address] [place] [address] Performed By: #### A LLBG ####[facility] LABIA [id number] [place] [phone] [place] 01-23-2024 14:34-0400 SaO2% (BldA) [Mass fraction] 100 % OMER [facility] Comment on above: Order Comment: Specimen Type: ARTERIAL B LOOD SPECIMENOrdering Facility: [facility] Address: [address] [place] [address] Performed By: #### A LLBG ####[facility] LABIA [id number] [place] [id number] [place] 01-23-2024 14:09-0400 SaO2% (BldA) [Mass fraction] 100 % OMER [facility] Comment on above: Order Comment: Specimen Type: ARTERIAL B LOOD SPECIMENOrdering Facility: [facility] Address: [address] [place] [address] Performed By: #### A LLBG ####[facility] LABIA [id number] [place] [phone] [place] 01-23-2024 13:18-0400 SaO2% (BldA) [Mass fraction] 99 % OMER [facility] Comment on above: Order Comment: Specimen Type: ARTERIAL B LOOD SPECIMENOrdering Facility: [facility] Address: [address] [place], [place] [address] Performed By: #### A LLBG ####[facility] LABIA [id number] [place] [phone] [place] 01-23-2024 12:17-0400 SaO2% (BldA) [Mass fraction] 99 % [facility] Comment on above: Order Comment: Specimen Type: ARTERIAL B LOOD SPECIMENOrdering Facility: [facility] Address: [address] [place] [address] Performed By: #### A LLBG ####[facility] LABIA [id number] [place] [phone] [place] 01-23-2024 10:55-0400 SaO2% (BldA) [Mass fraction] 100 % OMER [facility] Comment on above: Order Comment: Specimen Type: ARTERIAL B LOOD SPECIMENOrdering Facility: [facility] Address: [address] [place] [address] Performed By: #### A LLBG ####[facility] LABIA [id number] [place] [id number] [place] 01-23-2024 09:36-0400 SaO2% (BldA) [Mass fraction] 100 % OMER [facility] Comment on above: Order Comment: Specimen Type: ARTERIAL B LOOD SPECIMENOrdering Facility: [facility] Address: [address] [place], [place] [address] Performed By: #### A LLBG ####[facility] LABIA [id number] [place] [phone] [place] 01-23-2024 08:51-0400 SaO2% (BldA) [Mass fraction] 100 % OMER [facility] Comment on above: Order Comment: Specimen Type: ARTERIAL B LOOD SPECIMENOrdering Facility: [facility] Address: [address] [id number] Performed By: #### A LLMG ####[facility] LABCLIA [id number] [place] [phone] [facility] 01-23-2024 07:09-0400 SaO2% (BldA) [Mass fraction] 99 % OMER WRAY [facility] Comment on above: Order Comment: Specimen Type: ARTERIAL B LOOD SPECIMENOrdering Facility: [facility] Address: [address] [place], [place] [address] Performed By: #### A LLBG ####[facility] LABIA [id number] [place] [id number] [facility] 01-19-2024 12:29-0400 Diastolic blood pressure 60 mm[Hg] Moiz Koenig MD Work Phone: [facility] 01-19-2024 12:29-0400 Systolic blood pressure 108 mm[Hg] Moiz Koenig MD Work Phone: [facility] 01-19-2024 12:26-0400 Body height 182.9 cm Moiz Koenig MD Work Phone: [facility] 01-19-2024 12:26-0400 Body mass index (BMI) [Ratio] 43.13 kg/m2 Moiz Koenig MD Work Phone: [facility] 01-19-2024 12:26-0400 Body weight 144.24 kg Moiz Koenig MD Work Phone: [facility] 01-19-2024 12:26-0400 Heart rate 60 /min Moiz Koenig MD Work Phone: [facility] 01-19-2024 12:26-0400 Respiratory rate 12 /min Moiz Koenig MD Work Phone: [facility] 01-19-2024 12:26-0400 SaO2% (BldA) [Mass fraction] 95 % Moiz Koenig MD Work Phone: [facility] 04-03-2023 12:50-0500 Body temperature 97.8 [degF] Dr. Asad Mcdonough Work Phone: [facility] 04-03-2023 12:50-0500 Diastolic blood pressure 84 mm[Hg] Dr. Asad Mcdonough Work Phone: [facility] 04-03-2023 12:50-0500 Heart rate 78 /min Dr. Asad Mcdonough Work Phone: [facility] 04-03-2023 12:50-0500 Respiratory rate 14 /min Dr. Asad Mcdonough Work Phone: [facility] 04-03-2023 12:50-0500 SaO2% (BldA) [Mass fraction] 97 % Dr. Asad Mcdonough Work Phone: [facility] 04-03-2023 12:50-0500 Systolic blood pressure 126 mm[Hg] Dr. Asad Mcdonough Work Phone: [facility] 04-03-2023 12:00-0500 Inhaled oxygen flow rate 3 L/min Dr. Asad Mcdonough Work Phone: [facility] 04-03-2023 06:24-0500 Body height 182.[address] Asad Mcdonough Work Phone: [facility] 04-03-2023 06:24-0500 Body mass index (BMI) [Ratio] 41.6 kg/m2 Dr. Asad Mcdonough Work Phone: [facility] 04-03-2023 06:24-0500 Body weight 139.[address] Asad Mcdonough Work Phone: [facility] 03-22-2023 08:22-0500 Body mass index (BMI) [Ratio] 41.8 kg/m2 Dr. Asad Mcdonough Work Phone: [facility] 03-22-2023 08:22-0500 Body temperature 97.4 [degF] Dr. Asad Mcdonough Work Phone: [facility] 03-22-2023 08:22-0500 Body weight 139.[address] Asad Mcdonough Work Phone: [facility] 03-22-2023 08:22-0500 Diastolic blood pressure 70 mm[Hg] Dr. Asad Mcdonough Work Phone: [facility] 03-22-2023 08:22-0500 Heart rate 60 /min Dr. Asad Mcdonough Work Phone: [facility] 03-22-2023 08:22-0500 Respiratory rate 18 /min Dr. Asad Mcdonough Work Phone: [facility] 03-22-2023 08:22-0500 SaO2% (BldA) [Mass fraction] 96 % Dr. Asad Mcdonough Work Phone: [facility] 03-22-2023 08:22-0500 Systolic blood pressure 131 mm[Hg] Dr. Asad Mcdonough Work Phone: [facility] 01-03-2023 13:45-0400 Body weight 138.[address] Asad Mcdonough Work Phone: [facility] 12-20-2022 13:58-0400 Body temperature 99.1 [degF] Dr. Asad Mcdonough Work Phone: [facility] 12-20-2022 13:58-0400 Diastolic blood pressure 62 mm[Hg] Dr. Asad Mcdonoguh Work Phone: [facility] 12-20-2022 13:58-0400 Heart rate 59 /min Dr. Asad Mcdonough Work Phone: [facility] 12-20-2022 13:58-0400 Respiratory rate 16 /min Dr. Asda Mcdonough Work Phone: [facility] 12-20-2022 13:58-0400 SaO2% (BldA) [Mass fraction] 94 % Dr. Asad Mcdonough Work Phone: [facility] 12-20-2022 13:58-0400 Systolic blood pressure 111 mm[Hg] Dr. Asad Mcdonough Work Phone: [facility] 12-20-2022 04:37-0400 Inhaled oxygen flow rate 2 L/min Dr. Asad Mcdonough Work Phone: [facility] 12-19-2022 20:59-0400 Body height 182.[address] Asad Mcdonough Work Phone: [facility] 12-19-2022 16:57-0400 Body mass index (BMI) [Ratio] 41.9 kg/m2 Dr. Asad Mcdonough Work Phone: [facility] 12-19-2022 16:57-0400 Body weight 140.[address] Asad Mcdonough Work Phone: [facility] 09-07-2016 15:07-0400 BMI (Body Mass Index) 43.67 kg/m2 [facility] Work Phone: 09-07-2016 15:07-0400 Body weight 146.06 kg Birdie Garcia [facility] Medical [facility] Work Phone: 09-07-2016 15:07-0400 Weight 146.06 kg Birdie Garcia [facility] Work Phone: 11-30-2012 13:09-0400 Heart rate 78 /min Birdie Garcia [facility] Work Phone: 11-30-2012 13:09-0400 Heart rate 398 ms Birdietiffanie Garcia [facility] Work Phone: 11-30-2012 13:01-0400 BMI (Body Mass Index) 40.29 kg/m2 [facility] Work Phone: 11-30-2012 13:01-0400 BP Diastolic 90 mm[Hg] Anabelle Ervin [facility] Medical [facility] Work Phone: 11-30-2012 13:01-0400 BP Systolic 122 mm[Hg] [facility] Work Phone: 11-30-2012 13:01-0400 Pulse (Heart Rate) 78 /min Anabelle IZQUIERDO [facility] Work Phone: 11-30-2012 13:01-0400 Respiratory Rate 20 /min Anabelle Ervin [facility] Work Phone: 11-30-2012 13:01-0400 Weight 134.27 kg Anabelle IZQUIERDO Medical [facility] Work Phone: 06-22-2011 14:05-0500 Body Temperature 98.9 [degF] Anabelle IZQUIERDO Medical [facility] ter [facility] Work Phone: 06-22-2011 14:05-0500 BSA (Body Surface Area) 2.51 m2 [facility] Work Phone: 06-22-2011 14:05-0500 Pulse Oximetry 95 % Anabelle IZQUIERDO Medical [facility] Work Phone: 05-30-2011 13:44-0500 Height 182.88 cm [facility] Work Phone: Encounters Encounter Date Encounter Type Care Provider Facility Start: 01-18-2025 End: 01-18-2025 [facility] Start: 01-18-2025 End: 01-18-[address] Omer Wray MD [facility] Work Phone: Start: 01-14-2025 End: 01-14-2025 [facility] Start: 01-14-2025 End: 01-14-[address] Omer Wray MD [facility] Work Phone: Start: 01-13-2025 End: 01-13-2025 Patient encounter procedure Jolene Larkin [facility] Work Phone: Start: 01-13-2025 End: 01-13-2025 ambulatory Jolene Larkin Facility:[facility] Start: 12-19-2024 End: 12-19-2024 ambulatory [facility] Start: 12-19-2024 End: 12-19-[address] Omer Wray MD -[facility] Work Phone: Start: 12-16-2024 Visit out of hours Brittany banegas MD Work Phone: [employer] Work Phone: Start: 12-16-2024 In-person encounter Brittany gomez MD Work Phone: [facility] Work Phone: Start: 12-12-2024 ambulatory OMER WRAY Facility: [facility] Start: 12-12-2024 End: 12-12-2024 Subsequent hospital visit by physician Mri 2 [facility] (I-Stat/Lg Bore/1.5t) [facility] Start: 11-01-2024 End: 11-01-2024 Office outpatient visit 25 minutes Denny Cifuentes MD Work Phone: [facility] Comment on above: Erectile dysfunction , unspecified erectile dysfunction type (Primary Dx) Start: 11-01-2024 End: 11-01-2024 Orders Only Denny Cifuentes MD Work Phone: [facility] Comment on above: Erectile dysfunction , unspecified erectile dysfunction type (Primary Dx) Start: 10-24-2024 End: 10-24-[address] Qamar Carroll Work Phone: -[facility] Start: 10-24-2024 End: 10-24-2024 Patient encounter procedure Evelyn Deleon FACTORY MACHINE COMPUTER OPERATORMayank -Cardiovascular Services Work Phone: Start: 10-24-2024 ambulatory Omer Wray Facility:[facility] Start: 10-24-2024 Non-patient / Non-visit Dr. Handy [facility]GAL[facility] Start: 10-24-2024 End: 10-24-2024 ambulatory Evelyn Deleon FACTORY MACHINE COMPUTER OPERATOR Facility:[facility] Start: 09-19-2024 End: 09-19-[address] Omer Wray MD Work Phone: [facility] Work Phone: Start: 09-19-2024 End: 09-19-[address] Omer Wray MD -[facility] Work Phone: Start: 09-18-2024 End: 09-18-[address] Omer Wray MD Work Phone: [facility] Work Phone: Start: 09-18-2024 End: 09-18-2024 Patient encounter procedure Evelyn Deleon FACTORY MACHINE COMPUTER OPERATOR-C -Laboratory Work Phone: Start: 09-18-2024 End: 09-18-2024 Patient encounter procedure Evelyn Deleon FACTORY MACHINE COMPUTER OPERATOR-C -[facility] Work Phone: Start: 09-18-2024 End: 09-18-[address] Omer Wray MD Work Phone: [facility] Work Phone: Start: 09-18-2024 End: 09-18-2024 ambulatory Evelyn Deleon FACTORY MACHINE COMPUTER OPERATOR Facility:[facility] Start: 08-13-2024 End: 08-13-2024 Emergency department patient visit Dr. Qamar Carroll -Emergency Department Work Phone: Start: 06-13-2024 End: 06-13-2024 ambulatory Omer Wray Facility:[facility] Start: 06-13-2024 End: 06-13-[address] Omer Wray MD -[facility] Work Phone: Start: 06-04-2024 ambulatory Omer Wray Facility:[facility] Start: 05-15-2024 End: 05-15-2024 ambulatory Evelyn Deleon FACTORY MACHINE COMPUTER OPERATOR Facility[facility] Start: 05-15-2024 End: 05-15-2024 ambulatory Evelyn Deleon FACTORY MACHINE COMPUTER OPERATOR Facility:[facility] Start: 04-26-2024 End: 05-24-2024 ambulatory [facility] Facility:[facility] Start: 04-18-2024 End: 04-18-2024 Emergency department patient visit [facility] Facility:[facility] Start: 04-16-2024 End: 04-16-2024 ambulatory [facility] Facility:[facility] Start: 04-10-2024 End: 04-23-2024 [facility] [facility] Facility:[facility] Start: 03-20-2024 End: 03-23-2024 ambulatory [facility] Facility:[facility] Start: 03-13-2024 End: 03-13-2024 ambulatory [facility] Facility[facility] Start: 03-04-2024 End: 03-04-2024 Telephone encounter A Tunde Diamond MD Work Phone: Cardiology Comment on above: Patient Update Start: 03-01-2024 End: 03-01-2024 ambulatory Evelyn Deleon FACTORY MACHINE COMPUTER OPERATOR Facility:[facility] Start: 02-28-2024 End: 02-28-2024 ambulatory [facility] Facility:[facility] Start: 02-19-2024 End: 02-19-2024 ambulatory Evelyn Deleon FACTORY MACHINE COMPUTER OPERATOR Facility[facility] Start: 02-14-2024 End: 02-14-2024 ambulatory Evelyn Deleon FACTORY MACHINE COMPUTER OPERATOR Facility:[facility] Start: 02-14-2024 End: 02-14-2024 ambulatory Evelyn Deleon FACTORY MACHINE COMPUTER OPERATOR Facility:[facility] Start: 02-06-2024 End: 02-06-2024 Patient encounter procedure Liz Madsen APRN.CNP Work Phone: Cardiothoracic Comment on above: S/P MVR (mitral valv e repair) (Primary Dx); S/P TVR (tricuspid valve repair); S/P Maze operation for atrial fibrillation; Cardiac pacemaker in situ Start: 02-06-2024 End: 02-06-2024 ambulatory TROY GROVE Luna [facility] Facility:[facility] Start: 02-06-2024 End: 02-06-2024 Subsequent hospital visit by physician Xr Chest Main J1 Work Phone: Radiology Comment on above: Surgery follow-up [Z 09] Start: 01-31-2024 End: 01-31-2024 Telephone encounter Brittany Valente RN NOC Comment on above: Follow Up Phone Call (RC follow up call all clear. /) Start: 01-29-2024 End: 01-29-2024 Evaluation and management of inpatient OMER S NILS Facility:[facility] Start: 01-29-2024 End: 01-29-2024 Evaluation and management of inpatient [facility] Work Phone: Cardiology Start: 01-23-2024 End: 01-29-2024 Evaluation and management of inpatient [facility] Work Phone: Cardiology Start: 01-22-2024 Encounter for preprocedural cardiovascular examination Phillip DIAMOND [facility] Start: 01-22-2024 End: 01-22-2024 Patient encounter status Phillip Diamond MD Work Phone: [facility] Start: 01-22-2024 End: 01-22-2024 Admission to same day surgery center Anesthesia Clearance Work Phone: [facility] Work Phone: Start: 01-22-2024 End: 01-22-2024 ambulatory [...] Encounter for other preprocedural examination MOIZ KOENIG [facility] Start: 01-19-2024 End: 01-19-2024 Subsequent hospital visit [...] examination done Moiz Koenig MD Work Phone: [facility] Work Phone: Start: 01-19-2024 End: 01-19-2024 Subsequent hospital visit by physician Vangie Manzano (I-Stat) Work Phone: Radiology Comment on above: 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 Start: 12-06-2023 Patient encounter status Phillip Diamond MD Work Phone: [facility] Start: 12-06-2023 Telephone encounter A Tunde ace MD Work Phone: Cardiothoracic Comment on above: Referral Information ; Pre-Op CTHO Consult; Cardiac Preop Checklist Start: 07-10-2023 End: 07-11-2023 ambulatory UNKNOWN PROVIDER Facility:[facility] Start: 07-10-2023 End: 07-10-2023 Subsequent hospital visit by physician Chelsie Nieves QUALITY MANAGEMENT COORDINATOR-PEELER OPERATOR Other Phone: [facility] Diagnostic Radiology Comment on above: Dyspnea, unspecified type Start: 04-03-2023 Non-patient / Non-visit Dr. Brando Mcdonough Work Phone: [facility] Start: 04-03-2023 End: 04-03-2023 Admission to same day surgery center Dr. Asad Mcdonough Work Phone: [facility] Start: 04-03-2023 End: 04-03-[address] Asad Mcdonough Work Phone: [facility] Work Phone: Start: 03-29-2023 End: 03-29-[address] Asad Mcdonough Work Phone: [facility] Work Phone: Start: 03-29-2023 End: 03-29-[address] Asad Mcdonough Work Phone: [facility] Work Phone: Start: 03-22-2023 End: 03-22-[address] Asad Mcdonough Work Phone: [facility] Work Phone: Start: 02-01-2023 End: 02-01-[address] Asad Mcdonough Work Phone: [facility] Work Phone: Start: 01-03-2023 End: 01-03-[address] Asad Mcdonough Work Phone: [facility] Work Phone: Start: 12-20-2022 Non-patient / Non-visit Dr. Brando Mcdonough Work Phone: [facility] Work Phone: Start: 12-19-2022 End: 12-20-2022 Evaluation and management of inpatient Dr. Asad Mcdonough Work Phone: [facility] Work Phone: Start: 12-19-2022 End: 12-20-[address] Asad Mcdonough Work Phone: [facility] Work Phone: Start: 12-19-2022 Non-patient / Non-visit Dr. Brando Mcdonough Work Phone: [facility] Start: 03-07-2021 End: 03-07-2021 Emergency department patient visit NAEL LAN [facility] Start: 12-09-2020 ambulatory EDNA [facility] cility:[facility] Start: 03-07-2016 End: 03-08-2016 Ambulatory JANI SERRANO Facility:[facility] Procedures Date Procedure Procedure Detail Performing Clinician Start: 01-13-2025 Urnls dip stick/tabl et reagent auto microscopy [facility] Start: 12-16-2024 Blood pressure withi n normal [...] Comment: Speci men Type: BLOOD SPECIMENOrdering Facility: [facility] Address: [address] [place] [address] Performed By: #### T SCR ####CC MAIN BLOOD BANKCLIA [id number] [address] Start: 01-24-2024 Antibody screen OMER O FORI Comment on above: Order Comment: Speci men Type: BLOOD SPECIMENOrdering Facility: [facility] Address: [address] [place] [address] Performed By: #### T SCR ####CC MAIN BLOOD BANKCLIA [id number] [address] Start: 01-23-2024 Program eval implant able in persn dual ld pacer Edwin Self APRN.PEELER OPERATOR Work Phone: Start: 01-19-2024 Co diffusing capacity Phillip Diamond MD Work Phone: Start: 01-19-2024 Echocardiography OMER WRAY Start: 01-19-2024 CTA CHEST/ABD/PEL (G ATED) W IVCON A Tunde Diamond MD Work Phone: Start: 01-19-2024 Creatinine [Mass/vol ume] in Serum or Plasma [facility] Provider Start: 01-19-2024 Antibody screen OMER O FORI Comment on above: Order Comment: Speci men Type: BLOOD SPECIMENOrdering Facility: [facility] Address: [address] [place] [address] Performed By: #### T SCR30 ####CC [facility]OD [facility] [id number] [address] STATES OF [facility] Start: 01-19-2024 Radiologic exam ches t 2 views Phillip Diamond MD Work Phone: Start: 07-10-2023 Radiologic exam ches t 2 views Chelsie Nieves QUALITY MANAGEMENT COORDINATOR-PEELER OPERATOR Other Phone: Start: 04-03-2023 Lap Robotic Umb/Vent [...] Phone: Start: 11-25-2019 Colonoscopy Chelsie Wright on QUALITY MANAGEMENT COORDINATOR-PEELER OPERATOR Other Phone: Start: 09-07-2016 End: 09-07-2016 Documentation [...] PA-C Work Phone: Start: 11-30-2012 End: 11-30-2012 GAUGE CONTROLLER Renuka Georges PA-C Work Phone: Start: 11-30-2012 [...] Screening for malignant neoplasm of colon [facility] Start: 02-05-2027 Diabetes Screening Diabetes Screening [facility] Start: 01-28-2027 Diabetes Screening Diabetes Screening [facility] Start: 01-24-2027 Diabetes Screening Diabetes Screening [facility] Start: 01-18-2027 Diabetes Screening Diabetes Screening [facility] Start: 08-22-2025 DTaP/Tdap/Td Vaccines (3 - Td or Tdap) DTaP/Tdap/Td Vaccines (3 - Td or Tdap) [facility] Start: 08-22-2025 Urine microalbumin profile DTaP,Tdap,Td Vaccine (3 - Td or Tdap) [facility] Start: 08-10-2025 Tetanus vaccination Tetanus (Td or Tdap) Booster [facility] Start: 08-10-2025 Urine microalbumin profile DTaP,Tdap,Td Vaccine (2 - Td or Tdap) [facility] Start: 02-05-2025 BP Controlled (<130/80) BP Controlled (<130/80) [facility] Start: 01-27-2025 ambulatory Ambulatory Facility:[facility] Start: 01-18-2025 BP Controlled (<130/80) BP Controlled (<130/80) [facility] Start: 01-13-2025 End: 01-13-2025 Evaluation of diagnostic study results [facility] Start: 12-23-2024 Influenza vaccination Influenza Vaccine (#1) [employer] Start: 08-13-2024 [facility] Start: 04-24-2024 Advance Directive Discussion Advance Directive Discussion [facility] Start: 03-07-2024 Diabetes Screening Diabetes Screening [facility] Start: 02-06-2024 End: 02-06-2024 Follow-up encounter 02/06/2024 8:45 AM EDT Results Only Cardiology [address] [id number] Surgery Follow Up Cardiology Comment on above: Surgery Follow Up Start: 02-06-2024 End: 02-06-2024 ambulatory 02/06/2024 8:30 AM EDT Results Only Main [place] [facility] [address] [place] [address] CBC CMP Main [place] [facility] Comment on above: CBC CMP Start: 02-06-2024 End: 02-06-2024 Patient encounter procedure Radiology Comment on above: Surgery Follow Up Hospital Discharge J 08-22-20 Start: 01-23-2024 End: 01-23-2024 Admission to same day surgery center 01/23/2024 12:20 PM EDT - 01/23/2024 5:00 PM EDT Surgery Admitting [address] [place] [address] Phillip Diamond MD [address] [place], [place] [id number] MVr +/- MAZE ?Robot (2) Admitting Comment [...] Mitral valve disorder 01/23/2024 12:20 PM EDT [facility] CT & [facility] Start: 01-23-2024 End: 01-23-2024 Admission to same day surgery center 01/23/2024 11:10 AM EDT - 01/23/2024 3:50 PM EDT Surgery Admitting [address] [place] [address] Phillip Diamond MD [address] [place] [address] MVr +/- MAZE ?Robot (2) Admitting Comment on above: MVr +/- MAZE ?Robot (2) Start: 01-23-2024 End: 01-23-2024 Maze procedure for atrial fibrillation FULL MAZE W/ CARDIOPULMONARY BYPASS Disorder of artery or arteriole (HCC) Pre-operative cardiovascular examination Atrial fibrillation, unspecified type (HCC) Mitral valve disorder 01/23/2024 11:10 AM EDT [facility] CT & [facility] Start: 01-23-2024 Subsequent hospital visit by physician 01/23/2024 11:10 AM EDT Hospital Encounter Admitting [address] [id number] Phillip Diamond MD [address] [place] [address] Disorder of artery or arteriole [...] 01/23/2024 11:10 AM EDT Surgery Admitting [address] [place] [address] Phillip Diamond MD [address] [place] [address] MVr +/- MAZE ?Robot (2) Admitting Comment on above: MVr +/- MAZE ?Robot (2) Start: 01-23-2024 End: 01-23-2024 Anesthesia consultation 01/23/2024 6:30 AM EDT Anesthesia Event Admitting [address] [id number] Willow Armas SRNA Admitting Start: 01-23-2024 End: 01-23-2024 Maze procedure for atrial fibrillation FULL MAZE W/ CARDIOPULMONARY BYPASS Disorder of artery or arteriole (HCC) Pre-operative cardiovascular examination Atrial fibrillation, unspecified type (HCC) Mitral valve disorder 01/23/2024 6:30 AM EDT [facility] Start: 01-23-2024 Subsequent hospital visit by physician 01/23/2024 6:30 AM EDT Hospital Encounter Admitting [address] [place] [address] Phillip Diamond MD [address] [place] [address] Disorder of artery or arteriole [...] 12-24-2023 Covid-19 Vaccine () Covid-19 Vaccine () [facility] Start: 12-24-2023 Influenza vaccination Influenza Vaccine (#1) [facility] Start: 12-08-2023 End: 03-08-2024 aPTT in Platelet poor plasma by Coagulation assay ACTIVATED PARTIAL THROMBOPLASTIN TIME Lab Routine Disorder of artery or arteriole (HCC) Pre-operative cardiovascular examination Atrial fibrillation, unspecified type (HCC) Mitral valve disorder Expected: 12/08/2023 (Approximate), Expires: 03/08/2024 [facility] Comment on above: Expected: 12/08/2023 (Approximate), Expi res: 03/08/2024 Start: 12-08-2023 End: 03-08-2024 CBC W Auto Differential panel - Blood COMPLETE BLOOD COUNT AND DIFFERENTIAL Lab Routine Disorder of artery or arteriole (HCC) Pre-operative cardiovascular examination Atrial fibrillation, unspecified type (HCC) Mitral valve disorder Expected: 12/08/2023, Expires: 03/08/2024 [facility] Comment on above: Expected: 12/08/2023, Expires: Start: 12-08-2023 End: 03-08-2024 Comprehensive metabolic 2000 panel - Serum or Plasma COMPREHENSIVE METABOLIC PANEL Lab Routine Disorder of artery or arteriole (HCC) Pre-operative cardiovascular examination Atrial fibrillation, unspecified type (HCC) Mitral valve disorder Expected: 12/08/2023, Expires: 03/08/2024 [facility] Work Phone: Comment on above: Expected: 12/08/2023, Expires: Start: 12-08-2023 End: 03-08-2024 CONFIRM BLOOD TYPE CONFIRM BLOOD TYPE Blood Bank Routine Disorder of artery or arteriole (HCC) Pre-operative cardiovascular examination Atrial fibrillation, unspecified type (HCC) Mitral valve disorder Expected: 12/08/2023, Expires: 03/08/2024 [facility] Comment on above: Expected: 12/08/2023, Expires: Start: 12-08-2023 End: 03-08-2024 Lactate dehydrogenase [Enzymatic activity/volume] in Serum or Plasma LACTATE DEHYDROGENASE Lab Routine Disorder of artery or arteriole (HCC) Pre-operative cardiovascular examination Atrial fibrillation, unspecified type (HCC) Mitral valve disorder Expected: 12/08/2023, Expires: 03/08/2024 [facility] Comment on above: Expected: 12/08/2023, Expires: Start: 12-08-2023 End: 03-08-2024 PT panel - Platelet poor plasma by Coagulation assay PROTHROMBIN TIME Lab Routine Disorder of artery or arteriole (HCC) Pre-operative cardiovascular examination Atrial fibrillation, unspecified type (HCC) Mitral valve disorder Expected: 12/08/2023 (Approximate), Expires: 03/08/2024 [facility] Comment on above: Expected: 12/08/2023 (Approximate), Expi res: 03/08/2024 Start: 12-08-2023 End: 03-08-2024 TYPE AND SCREEN,30 DAY TYPE AND SCREEN,30 DAY Blood Bank Routine Disorder of artery or arteriole (HCC) Pre-operative cardiovascular examination Atrial fibrillation, unspecified type (HCC) Mitral valve disorder Expected: 12/08/2023, Expires: 03/08/2024 [facility] Comment on above: Expected: 12/08/2023, Expires: Start: 12-08-2023 End: 03-08-2024 URINALYSIS, DIPSTICK ONLY URINALYSIS, DIPSTICK ONLY Lab Routine Disorder of artery or arteriole (HCC) Pre-operative cardiovascular examination Atrial fibrillation, unspecified type (HCC) Mitral valve disorder Expected: 12/08/2023, Expires: 03/08/2024 [facility] Comment on above: Expected: 12/08/2023, Expires: Start: 04-24-2023 Advance Directive Discussion Advance Directive Discussion [facility] Start: 04-03-2023 Patient discharge [facility] Start: 12-23-2022 Covid-19 Vaccine () Covid-19 Vaccine () [facility] Start: 12-23-2022 COVID-19 Vaccine () COVID-19 Vaccine () [facility] Start: 12-23-2022 Influenza vaccination Influenza Vaccine (#1) [facility] Start: 12-20-2022 Patient discharge [facility] Start: 12-19-2022 Application of intermittent pneumatic compression device [facility] Start: 12-19-2022 Following clinical pathway protocol [facility] Start: 12-19-2022 Measuring intake and output [facility] Start: 12-19-2022 Incentive spirometry [facility] Start: 12-19-2022 [facility] Start: 12-19-2022 Application of ice collar, cap or bag [facility] Start: 12-19-2022 Elevation of head of bed [facility] Start: 12-19-2022 Admission procedure [facility] Start: 12-19-2022 Anesthesia hernia repair upper abdomen nos ANESTH REPAIR OF HERNIA [facility] Start: 12-19-2022 RPR AA HRN 1ST < 3 CM RDC RPR AA HRN 1ST < 3 CM RDC [facility] Start: 2022 Pneumococcal vaccination Pneumococcal Vaccine(s) (65+ yrs) (1 of 1 - PCV) [facility] Start: 2022 Pneumococcal Vaccine: 65+ (2 of 2 - PPSV23 or PCV20) Pneumococcal Vaccine: 65+ (2 of 2 - PPSV23 or PCV20) [facility] Start: 01-22-2022 Medicare Annual Wellness Visit Medicare Annual Wellness Visit [facility] Start: 11-24-2020 Screening for malignant neoplasm of colon [facility] Start: 2017 Hepatitis B (HBV) Vaccine (optional start 60+ years) Hepatitis B (HBV) Vaccine (optional start 60+ years) [facility] Start: 2017 RSV Immunization for Adults (1 - Risk 60-74 years 1-dose series) RSV Immunization for Adults (1 - Risk 60-74 years 1-dose series) [facility] Start: 2017 RSV Vaccine (1 - 1-dose 60+ series) RSV Vaccine (1 - 1-dose 60+ series) [facility] Start: 2017 RSV Vaccine (1 - Risk 60-74 years 1-dose series) RSV Vaccine (1 - Risk 60-74 years 1-dose series) [facility] Start: 2017 RSV vaccine (optional 60+ years) RSV vaccine (optional 60+ years) [facility] Start: 09-13-2016 End: 09-13-2016 Appointment Appointment [facility] Work Phone: Start: 09-07-2016 End: 09-07-2016 Appointment Appointment [facility] Work Phone: Start: 11-30-2012 End: 11-30-2012 *BMP *BMP [facility] Work Phone: Start: 11-30-2012 End: 11-30-2012 24 hour holter monitor 24 hour holter monitor [facility] Medicine [facility] Work Phone: Start: 11-30-2012 End: 11-30-2012 BNP *Brain Natriuretic Peptide BNP [facility] Work Phone: Start: 11-30-2012 End: 11-30-2012 CBC W Auto Differential panel - Blood *CBC without Diff [facility] Work Phone: Start: 11-30-2012 End: 11-30-2012 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 [facility] Work Phone: Start: 11-30-2012 End: 11-30-2012 Echocardiography Echocardiogram (complete) [facility] Work Phone: Start: 11-30-2012 End: 11-30-2012 Electrocardiogram, complete EKG (In office) [facility] Work Phone: Start: 11-30-2012 End: 11-30-2012 Follow Up Appt 6 months Follow Up Appt 6 months [facility] Work Phone: Start: 11-30-2012 End: 11-30-2012 Thyroid stimulating hormone (TSH) *TSH [facility] Work Phone: Start: 02-11-2012 Prostate specific antigen measurement Prostate Cancer Screening Discussion [facility] Start: 11-16-2011 End: 11-16-2011 Follow Up Appt 1 year Follow Up Appt 1 year [facility] Work Phone: Start: 2007 Shingles (RZV) Vaccine (1 of 2) Shingles (RZV) Vaccine (1 of 2) [facility] Start: 2007 Shingrix Vaccine (1 of 2) Shingrix Vaccine (1 of 2) [facility] Start: 2002 Prostate specific antigen measurement Prostate Cancer Screening Discussion [facility] Start: 2002 Screening for malignant neoplasm of colon [facility] Start: 02-11-1992 Lipid panel [facility] Start: 02-11-1976 Hepatitis A (HAV) Vaccine (optional start 19+ years) Hepatitis A (HAV) Vaccine (optional start 19+ years) [facility] Start: 02-11-1976 Tetanus vaccination Tetanus (Td or Tdap) Booster [facility] Start: 1975 Annual PCP Team Chronic Disease Visit Annual PCP Team Chronic Disease Visit [facility] Start: 1975 Anxiety Screening Anxiety Screening [facility] Start: 1975 Depression Screening Depression Screening [facility] Start: 1975 Diabetes mellitus screening Diabetes Screening [facility] Start: 1975 Hepatitis C screening [facility] Start: 1975 Tetanus + diphtheria + acellular pertussis vaccine (product) Tdap Booster [facility] Start: 1969 Depression Screening Depression Screening [facility] Start: 1957 Abdominal aortic aneurysm screening Abdominal Aortic Aneurysm Screening [facility] Start: 1957 Lipid panel Lipid Panel [facility] Start: 1957 Medicare Annual Wellness (AWV) Medicare Annual Wellness (AWV) [facility] Start: 1957 Screening for malignant neoplasm of colon [facility] Basic metabolic 2008 panel with ionized calcium - Serum or Plasma [facility] CARDIAC IMPLANTABLE DEVICE CHECK CARDIAC IMPLANTABLE DEVICE CHECK PACEART Routine Pacemaker reprogramming/check 1 Occurrences starting 12/12/2023 [facility] Comment on above: 1 Occurrences starting 12/12/2023 End: 01-19-2024 CARDIAC IMPLANTABLE DEVICE CHECK CARDIAC IMPLANTABLE DEVICE CHECK PACEART Routine Pacemaker reprogramming/check 1 Occurrences starting 01/19/2024 until 01/19/2024 [facility] Comment on above: 1 Occurrences starting 01/19/2024 until 01/19/2024 End: 01-06-2025 CTA Chest vessels and Abdominal vessels and Pelvis vessels W contrast IV CTA CHEST/ABD/PEL (GATED) W IVCON Radiology Routine Disorder of artery or arteriole (HCC) Pre-operative cardiovascular examination Atrial fibrillation, unspecified type (HCC) Mitral valve disorder 1 Occurrences starting 12/08/2023 until 01/06/2025 [facility] Comment on above: 1 Occurrences starting 12/08/2023 until 01/06/2025 End: 12-07-2024 ECG COMPLETE ECG COMPLETE ECG Routine Disorder of artery or arteriole (HCC) Pre-operative cardiovascular examination Atrial fibrillation, unspecified type (HCC) Mitral valve disorder 1 Occurrences starting 12/08/2023 until 12/07/2024 [facility] Comment on above: 1 Occurrences starting 12/08/2023 until 12/07/2024 End: 12-07-2024 Echocardiography ECHO Cardiology Routine Disorder of artery or arteriole (HCC) Pre-operative cardiovascular examination Atrial fibrillation, unspecified type (HCC) Mitral valve disorder 1 Occurrences starting 12/08/2023 until 12/07/2024 [facility] Comment on above: 1 Occurrences starting 12/08/2023 until 12/07/2024 Electronic analysis antitachy pacemaker system ANALYZE PACER SYS Cardiology Routine Disorder of artery or arteriole (HCC) Pre-operative cardiovascular examination Atrial fibrillation, unspecified type (HCC) Mitral valve disorder Ordered: 12/08/2023 [facility] Comment on above: Ordered: 12/08/2023 End: 01-06-2025 LUNG DIFFUSION CAPACITY (DLCO) LUNG DIFFUSION CAPACITY (DLCO) PFT Routine Disorder of artery or arteriole (HCC) Pre-operative cardiovascular examination Atrial fibrillation, unspecified type (HCC) Mitral valve disorder 1 Occurrences starting 12/08/2023 until 01/06/2025 [facility] Comment on above: 1 Occurrences starting 12/08/2023 until 01/06/2025 LUNG DIFFUSION CAPAC ITY (DLCO) LUNG DIFFUSION CAPACITY (DLCO) PFT Routine Disorder of artery or arteriole (HCC) Pre-operative cardiovascular examination Atrial fibrillation, unspecified type (HCC) Mitral valve disorder 01/19/2024 2:35 PM EDT [facility] Work Phone: Natriuretic peptide. B prohormone N-Terminal [Mass/volume] in Serum or Plasma [facility] Patient Education ED Asthma, Acu te (Adult) ED Pneumonia (Adult) [facility] Work Phone: Patient referral [facility] Work Phone: End: 01-06-2025 SPIROMETRY BASELINE ONLY SPIROMETRY BASELINE ONLY PFT Routine Disorder of artery or arteriole (HCC) Pre-operative cardiovascular examination Atrial fibrillation, unspecified type (HCC) Mitral valve disorder 1 Occurrences starting 12/08/2023 until 01/06/2025 [facility] Comment on above: 1 Occurrences starting 12/08/2023 until 01/06/2025 SPIROMETRY BASELINE ONLY SPIROME TRY BASELINE ONLY PFT Routine Disorder of artery or arteriole (HCC) Pre-operative cardiovascular examination Atrial fibrillation, unspecified type (HCC) Mitral valve disorder 01/19/2024 2:35 PM EDT [facility] Work Phone: [place] [facility] End: 01-06-2025 XR Chest PA and Lateral XR CHEST 2V FRONTAL/LAT Radiology Routine Disorder of artery or arteriole (HCC) Pre-operative cardiovascular examination Atrial fibrillation, unspecified type (HCC) Mitral valve disorder 1 Occurrences starting 12/08/2023 until 01/06/2025 [facility] Comment on above: 1 Occurrences starting 12/08/2023 until 01/06/2025 Immunizations Immunization Date Immunization Notes Care Provider Afsaneh boateng 02-22-2017 pneumococcal conjuga te vaccine, [address] Asad Mcdonough Work Phone: [facility] 08-11-2015 tetanus toxoid, reduced diphtheria toxoid, and acellular pertussis vaccine, adsorbed Phe 4 [employer] Payers Date Payer Category Payer Self-pay [id number] 2022 [facility] DICARE SUPPLEMENT [id number] 2022 Medicare [id number]. 1.13.159.2. [id number] 2022 Unknown [id number]. 1.13.159.2. 7.3.387311.315 2022 care--Care provided to Veterans [place] [employer] 1.2.840.016612.1.13.680.2. [id number] 2022 Medicare [id number] 2022 Unknown [id number] 2013 Unknown [id number] 2007 Private Health Insurance [facility] OPTUM [id number] 2007-Present [phone] [address] [place] [address] PPO [id number]. [id number] 2007 Unknown [id number] 1957 Unknown [id number] 2.16.840.1.453148.3.579.2. 903 1957 Unknown [id number] 2..840.1.497691.3.579.2. 594 1957 Unknown [id number] 2..840.1.571668.3.579.2. 594 Unknown [id number] Unknown [id number] Unknown [id number] 2.16.840.1.667414.3.579.2. 462 Unknown [id number] 2.16.840.1.845235.3.579.2. 462 Unknown [id number] 2.16.840.1.215080.3.579.2. 462 Unknown [id number] 2.16.840.1.044032.3.579.2. 462 Unknown [id number] 2.16.840.1.938078.3.579.2. 462 Unknown [id number] 2.16.840.1.391560.3.579.2. 462 Unknown [id number] 2.16.840.1.460858.3.579.2. 462 Unknown [id number] 2.16.840.1.814520.3.579.2. 462 Unknown [id number] 2.16.840.1.175075.3.579.2. 462 Unknown [id number] 2.16.840.1.336244.3.579.2. 462 Unknown [id number] 2.16.840.1.239474.3.579.2. 462 Unknown [id number] 2.16840.1.298700.3.579.2. 462 Unknown [id number] 2.16.840.1.734673.3.579.2. 462 Unknown [id number] 2.16.840.1.847876.3.579.2. 462 Unknown [id number] 2.16840.1.872686.3.579.2. 462 Unknown [id number] 2.16840.1.838508.3.579.2. 462 Unknown [id number] 2.840.1.473350.3.579.2. 462 Unknown [id number] 2.840.1.379406.3.579.2. 462 Unknown [id number] 2.840.1.300918.3.579.2. 462 Unknown [id number] 2.16840.1.841186.3.579.2. 462 Unknown [id number] 2.16840.1.223125.3.579.2. 462 Unknown [id number] 2.840.1.752755.3.579.2. 462 Unknown [id number] 2.16840.1.743936.3.579.2. 462 Unknown [id number] 2.840.1.496673.3.579.2. 462 Unknown [id number] 2.840.1.405765.3.579.2. 462 Social History Date Type Detail Facility Start: 12-19-2022 End: 03-22-2023 Tobacco smoking status UTIS Unknown if ever smoked [facility] Start: 06-11-2018 None [facility] Start: 07-21-2017 Spouse/ Significant Other [facility] Start: 07-21-2017 Non-smoker [facility] Start: 1955 Sex Assigned At Male [facility] Work Phone: Start: 05-31-2006 End: 02-06-2024 Alcohol intake Current drinker of alcohol (finding) [facility] Start: 10-29-2021 End: 01-15-2024 History of Social function [facility] Work Phone: Start: 10-29-2021 End: 12-16-2024 Area Deprivation Index [facility] Work Phone: Start: 03-25-2012 National Score (1-100), lower number is lower risk 57 [facility] Work Phone: Start: 1955 Sex Assigned At Not on file [facility] Work Phone: Start: 01-19-2024 End: 08-13-2024 Tobacco smoking status NHIS Ex-smoker [facility] Start: 1977 End: 1973 History of tobacco use Current smoker [facility] Start: 1977 End: 1973 History of tobacco use Cigarette Smoker [facility] History of tobacco use Passive smoker [facility] Start: 01-19-2024 Tobacco use and exposure Former smokeless tobacco user [facility] End: 02-11-2000 History of tobacco use Chews Tobacco [facility] Start: 11-22-2021 Sex Male (finding) [facility] [employer] Procedure Code Equipment Code Equipment Original Text Equipment Identifier Dates [id number] Start : 11-22-2017 [id number] Start : 11-22-2017 [id number] Start : 12-01-2017 Clip Atriclip Gillinov-Arlette 180d Long 35mm 25mm Internal Head - [id number] Start: 01-23-2024 Montour Thk1.65mm P tfe 4x.5in Cardiovascular Sterile - [id number] Start: 01-23-2024 Band Suazo Ancor e 33mm Annuloplasty Chordal Guide - [id number] Start: 01-23-2024 Band Suazo Ancor e 31mm 77mm Annuloplasty Chordal Guide - [id number] Start: 01-23-2024 ([id number]) Extra-gynaecolog ical surgical mesh, composite-polymer [id number] FDA Start: 04-03-2023 Goals Date Patient Goal Desired Activity /State Personal health goal Functional Status Date Assessment Result Facility 12-16-2024 Functional Status right [email or web address] Work Phone: 12-16-2024 dependent [facility] Work Phone: 01-29-2024 Are you deaf, or do you have serious difficulty hearing No 01/29/2024 4:28 PM EDT Melida Eldridge RN No [facility] 01-29-2024 Are you blind, or do you have serious difficulty seeing, even when wearing glasses No 01/29/2024 4:28 PM EDT Melida Eldridge RN No [facility] 01-29-2024 Do you have serious difficulty walking or climbing stairs No 01/29/2024 4:28 PM EDT Melida Eldridge RN No [facility] 01-29-2024 Do you have difficul ty dressing or bathing No 01/29/2024 4:28 PM EDT Melida Eldridge RN No [facility] 01-29-2024 Because of a physica l, mental, or emotional condition, do you have difficulty doing errands alone such as visiting a physician's office or shopping No 01/29/2024 4:28 PM EDMelida Herr RN No [facility] 12-20-2022 Functional status Up ad raisa [facility] Work Phone: Mental Status Date Assessment Result Facility 01-29-2024 Because of a physica l, mental, or emotional condition, do you have serious difficulty concentrating, remembering, or making decisions No 01/29/2024 4:28 PM EDT Melida Eldridge, MICHAEL No [facility] 04-03-2023 Cognitive function Voice/Name [facility] Work Phone: 12-20-2022 Cognitive function Level Of Cons ciousness Awake;Alert;Appropriate [facility] Work Phone: 12-19-2022 Cognitive function Voice/Name [facility] Work Phone: Clinical Notes 12-19-2022 to 01-13-2025 Note Date & Type Note Facility 01-13-2025 Procedure note [facility] 01-13-2025 Evaluation note Diagnosis Onset Date 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 acute January 13, 2025 1:12pm Presence of left atrial appendage closure device acute January 13, 2025 1:12pm S/P Maze operation for atrial fibrillation acute January 13, 2025 1:12pm Atypical atrial flutter chronic January 13, 2025 1:12pm Presence of permanent cardiac pacemaker December 01, 2017 chronic January 13, 2025 1:12pm Sick sinus syndrome chronic [facility] 2024 1:12pm Dyspnea on exertion acute [facility] 2024 1:18pm S/P mitral valve repair acute January 13, 2025 1:18pm Atypical atrial flutter chronic January 13, 2025 1:18pm Essential (primary) hypertension chronic January 13, 2025 1:18pm Presence of permanent cardiac pacemaker December 01, 2017 chronic January 13, 2025 1:18pm S/P tricuspid valve repair chronic January 13, 2025 1:18pm [facility] Work Phone: 1(864) 806-385809-22-2025 Progress 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 He was sent to the [facility]. The more recent evaluation demonstrated areas of atrial flutter in the tricuspid annulus region. He also subsequently had a permanent pacemaker implanted after his radio frequency ablation in 2017. He had started experiencingmore atrial arrhythmias once again and he was sent backto [facility]. It was felt after discussing all the options that the sotalol should be discontinued and he was started on amiodarone. He had been following up at the [facility] due to insurance issues. He had a stress test in 2020. He did have an echocardiogram performed on September 13 at the [facility] and he was recorded to have a moderately dilated left ventricle with estimated ejection fractionof 60 to 65% right ventricle with a pacemaker placed in mitral valve which was normal with severe mitral regurgitation. He had echocardiogram in October 2023 at [facility] that showed ejection fraction of 60% and moderately severe eccentric mitral valve insufficiency. Transesophageal echocardiogram on 11/21/2023 showed severe mitral valve insufficiency. Heart catheterization on 11/21/2023 showed angiographically normal coronary arteries. He was seen with [facility], Dr. Diamond in January 2024. Mitral valve [...] 1 Y FU (PPM F/U LEANN 1:30) Traffic Chief Required: No Accompanied by: Self Is patient [...] enlarged right atrium, and pulmonary artery systolic [id number] mmHg. He will continue current medical therapy [...] updated, as necessary. Follow Up: 12-15 Months (GAUGE CONTROLLER) 6 Months (FACTORY MACHINE COMPUTER OPERATOR/PA) Coding Level of Care Code Off vis,est,level [...] Ejection fraction %: 60 01/13/25 1452 P FACTORY MACHINE COMPUTER OPERATOR-C> Date _ Evelyn OROPEZA Cosigner Signature: Date (if applicable) CC: [facility] ~ [facility]09-22-2025 Progress note Author Evelyn Deleon [facility] Note Date/Time January 13, 2025 2:41pm [facility] [address] [place], [place] [address]e. [address] [place] [address] OFFICE VISIT Date of Service: 01/13/25 MR#: [id number] Acct: [id number] Name: TRE QUIÑONES Rep #: [id number] : 1955 Provider: JOHNNA Deleon Age/Sex: 69/M [place] [facility] Status: Signed HPI HPI History of [...] and flutter. He was sent to the [facility]. The more recent evaluation demonstrated areas of atrial flutter in the tricuspid annulus region. He also subsequently had a permanent pacemaker implanted after his radio frequency ablation in 2018. He had started experiencing more atrial arrhythmias once again and he was sent backto [facility]. It was felt after discussing all the options that the sotalol should be discontinued and he was started on amiodarone. He had been following up at the [facility] due to insurance issues. He had a stress test in 2020. He did have an echocardiogram performed on September 13 at the [facility] and he was recorded to have a moderately dilated left ventricle with estimated ejection fraction of 60 to 65% right ventricle with a pacemaker placed in mitral valve which was normal with severe mitral regurgitation. He had echocardiogram in October 2023 at [facility] that showed ejection fraction of 60% and moderately severe eccentric mitral valve insufficiency. Transesophageal echocardiogram on 11/21/2023 showed severe mitral valve insufficiency. Heart catheterization on 11/21/2023 showed angiographically normal coronary arteries. He was seen with [facility], Dr. Diamond in January 2024. Mitral valve [...] 1 Y FU (PPM F/U LEANN 1:30) Traffic Chief Required: No Accompanied by: Self Is patient [...] enlarged right atrium, and pulmonary artery systolic [id number] mmHg. He will continue current medical therapy [...] updated, as necessary. Follow Up: 12-15 Months (GAUGE CONTROLLER) 6 Months (FACTORY MACHINE COMPUTER OPERATOR/PA) Coding Level of Care Code Off vis,est,level [...] <Electronically signed by Evelyn Deleon N P FACTORY MACHINE COMPUTER OPERATORErichC> Date _ Evelyn Deleon NP FACTORY MACHINE COMPUTER OPERATOR-C Cosigner Signature: Date (if applicable) CC: [facility] Work Phone: 1(182) 574-522608-21-2025 History of Present illness Narrative* Jerardo Porras [...] IMPLANT DATA REVIEWED: Yes MR Conditional CIED [employer] Remote programming PATIENT PRESENTS WITH AN IMPLANTABLE OR ATTACHED CURRICULUM SUPERVISOR: No RADIOLOGY DEPARTMENT: MR; Exam(s) Completed: Lower MSK: Ankle/Hind Foot, right . Aromatherapy Administered: No PERIPHERAL IV DATA: Not applicable Images approved by Dr. Olivo @11:18 am SIGNED BY: RT Prachi(R) December 12, 2024 10:55 AM documented in this encounterMarion Hospital08-21-2025 NoteHNO ID: [id number] Author: JERARDO PORRAS RT(R) Service: Radiology Author [...] IMPLANT DATA REVIEWED: Yes MR Conditional CIED [employer] Remote programming PATIENT PRESENTS WITH AN IMPLANTABLE OR ATTACHED CURRICULUM SUPERVISOR: No RADIOLOGY DEPARTMENT: MR; Exam(s) Completed: Lower MSK: Ankle/Hind Foot, right . Aromatherapy Administered: No PERIPHERAL IV DATA: Not applicable Images approved by Dr. Olivo @11:18 am SIGNED BY: RT Prachi(R) December 12, 2024 10:55 [facility]08-[facility]25 NoteHNO ID: [id number] Author: MADY BLUNT RN Service: Nursing Author [...] REVIEWED: YES PROCEDURE: MRI - Conditional Pacemaker [employer] Oncology Rn Device - Settings: VOO 70 bpm Physiologic monitoring per standard operating procedure. See vital sign flowsheet. PATIENT TOLERATED PROCEDURE: Without incident. PATIENT DISCHARGED TO: Home/Self Care SIGNED BY: Mady Blunt [facility]08-21-2025 Procedure note* Mady Blunt RN - 12/12/2024 10:20 AM EDT Radiology Service Progress Note PATIENT NAME: Tre ARGUELLON: [id number] DATE OF SERVICE: December 12, 2024 TIME: 11:18 AM PATIENT IDENTITY VERIFICATION COMPLETED USING TWO (2) STANDARD IDENTIFIERS: Name and Date of confirmed by patient verbally. PATIENT GENDER DATA: Assigned male at PATIENT RELEVANT IMPLANT DATA REVIEWED: Yes ALLERGIES: Reviewed and unchanged MEDICATIONS REVIEWED: YES PROCEDURE: MRI - Conditional Pacemaker [employer] Rn Device - Settings: VOO 70 bpm Physiologic monitoring per standard operating procedure. See vital sign flowsheet. PATIENT TOLERATED PROCEDURE: Without incident. PATIENT DISCHARGED TO: Home/Self Care SIGNED BY: Mady Blunt RN [facility]08-21-2025 Procedure note* Mady Blunt RN - 12/12/2024 [...] REVIEWED: YES PROCEDURE: MRI - Conditional Pacemaker [employer] On[employer] Rn Device - Settings: VOO 70 bpm Physiologic monitoring per standard operating procedure. See vital sign flowsheet. PATIENT TOLERATED PROCEDURE: Without incident. PATIENT DISCHARGED TO: Home/Self Care SIGNED BY: Mady Blunt RN documented in this encounterMarion Hospital07-11-2025 History of Present illness Narrative* Denny Cifuentes [...] family history on file. documented in this [facility]05-28-2025 Evaluation note* Diagnosis Onset Date Resolution Status Admit Date Dyspnea on exertion acute August 232024 11:24am S/P mitral valve repair acute M ay 2024 11:24am Atypical atrial flutter chronic M ay 2024 11:24am Essential (primary) hypertension chronic September 18, 2024 11:24am Presence of permanent cardiac pacemaker December 01, 2017 chronic September 18, 11:24am S/P tricuspid valve repair chronic September 18, 2024 11:24am [facility] Work Phone: 1(271) 890-362311-11-2024 Telephone encounter Note* Telephone Encounter - López Campbell RN - 03/04/2024 1:43 PM EST Images from the original note were not included. [facility] Phone Encounter DATE of SERVICE: 03/04/2024 TIME of SERVICE: 1:43 PM Status: FYI Service/Provider: Cardiac Surgery Tunde Diamond M.D. Reason for call: Shortness of Breath Contact information: [phone] Resolution: Reinforced education Comments: patient called to [...] Resolution: 03/04/2024 Time of Resolution 1:43 PM [facility]11-11-2024 Miscellaneous Notes* Telephone Encounter - López Campbell RN - 03/04/2024 1:43 PM EST Images from the original note were not included. [facility] Phone Encounter DATE of SERVICE: 03/04/2024 TIME of SERVICE: 1:43 PM Status: FYI Service/Provider: Cardiac Surgery Tunde Diamond M.D. Reason for call: Shortness of Breath Contact information: [phone] Resolution: Reinforced education Comments: patient called to [...] of Resolution 1:43 PM documented in this encounterMarion Hospital10-15-2024 Instructions* Patient Instructions* Liz Madsen APRN.CNP - 02/06/2024 9:04 AM EDT Follow up with PCP next week with repeat cbc and cmp to monitor trends. Follow up with instructional support specialist in 4-6 weeks with consideration of repeat echo.Cardiology to determine clearance for return to work and order Cardiac Rehab Phase II if not already given at the time of discharge. No further refills unless specified by local providers. documented in this encounterMarion Hospital10-15-2024 History of Present illness Narrative* Liz Madsen APRN.CNP - 02/06/2024 9:00 AM EDT Images from the original note were not included. [facility] Department of Cardiovascular Medicine DEPARTMENT [...] and walking - follow up with local Sound Equipment Mechanic for further medical management CXR: 02/06/2024 RESULT: [...] cmp to monitor trends. Follow up with instructional support specialist in 4-6 weeks with consideration of repeat [...] prophylaxis reviewed Discussed wound care Liz Madsen APRN.PEELER OPERATOR documented in this encounterMarion Hospital10-15-2024 [facility] History of Present illness Narrative* Africa Galvin [...] PATIENT PRESENTS WITH AN IMPLANTABLE OR ATTACHED CURRICULUM SUPERVISOR: No RADIOLOGY DEPARTMENT: General X-ray: Exam(s) Completed: Chest X-Ray PERIPHERAL IV DATA: Not applicable SIGNED BY: RT George(R) February 06, 2024 8:14 AM documented in this encounterMarion Hospital10-15-2024 [facility]10-09-2024 Telephone encounter Note* Telephone Encounter - Brittany [...] Pt instructed to contact 24-hour nurse hotline [phone] for any questions or concerns. Pt verbalized understanding. PD nurse confirmed/verified patient's and full name. All clear, closing statement given. Brittany Valente RN [facility]10-09-2024 Miscellaneous Notes* Telephone Encounter - Brittany Valente [...] Pt instructed to contact 24-hour nurse hotline [phone] for any questions or concerns. Pt verbalized understanding. PD nurse confirmed/verified patient's and full name. All clear, closing statement given. Brittany Valente RN documented in this encounterMarion Hospital10-07-2024 [facility]10-07-2024 [facility]10-06-2024 [facility]10-06-2024 NoteHNO ID: [id number] Author: MIN JIMENEZ MD Service: Cardiac Surgery Author Type: Resident Type: Procedures Filed: 01/28/2024 09:40 Note Text: Pacing wires pulled this morning. Bedrest 30 minutes. Q15min vitals for first hour. Min Jimenez [facility]10-06-2024 [facility]10-05-2024 [facility]10-04-[facility]24 [facility]10-03-2024 [facility]10-03-2024 Note [facility]10-02-2024 [facility]10-01-2024 [facility]10-01-2024 [facility] 01-23-2024 [facility]10-01-2024 [facility]10-01-2024 [facility]10-01-2024 [facility]10-01-2024 [facility]09-30-2024 Note [facility]09-30-[facility] History of Present illness Narrative* Phillip Diamond MD - 01/22/2024 11:04 AM EDT Images from the original note were not included. [facility] DEPARTMENT OF CARDIAC SURGERY OUTPATIENT VISIT DATE January 22, 2024 OUTPATIENT VISIT SERVICE DATE: 01/22/2024 SERVICE TIME: 11:08 AM PCP: Omer Huff) [address] [place] [address] Referring Physician: Phillip Diamond [address] [place] [id number] Patient Type: New Visit to Determine Surgery: [...] minimal luminal caliber throughout = 12 mm Collection Systems Technician: [facility] Transcribe Date/Time: Jan 19 2024 10:29A Dictated [...] record Phillip Diamond MD documented in this encounterMarion Hospital09-30-2024 NoteC[facility]09-30-2024 History of Present illness Narrative* Gasper Alejandre [...] check in for surgery documented in this encounterMarion Hospital09-30-2024 History of Present illness Narrative* Jw Talley [...] s/p typical atrial flutter/PAT RFA in 2005 ([place]), with redo in 2007, s/p CTI and [...] age 82) Father other ( from Agent [place] effects multiple cancers) Father Prostate Cancer Father [...] 01/19/24 8:50 AM Impression IMPRESSION: See Result. Collection Systems Technician: CHRISTOFER Transcribe Date/Time: Jan 19 2024 11:03A [...] and consent discussed: yes. Patient / Responsible Alliance Party agrees to proceed: yes Patient / [...] 6:51 AM Pager/Contact #: documented in this encounterMarion Hospital09-30-2024 NoteC[facility]09-30-2024 [facility]09-30-2024 History of Present illness Narrative* Gasper Alejandre [...] age 82) Father other ( from Agent [employer] effects multiple cancers) Father Prostate Cancer Father [...] , Dental Clearance DERM: Denies Dermatological Complaints FUNERAL PROFESSIONAL: dizziness [place] RESP: sob josé miguel CARD: [...] minimal luminal caliber throughout = 12 mm Collection Systems Technician: [facility] Transcribe Date/Time: Jan 19 2024 10:29A Dictated by : LUKE JOHNSON MD This examination was interpreted and the report reviewed and electronically signed by: LUKE JOHNSON MD on Jan 19 2024 10:47AM EST MRI: CXR: XR CHEST 2V FRONTAL/LAT Result Date: 01/19/2024 IMPRESSION: See Result. Collection Systems Technician: CHRISTOFER Transcribe Date/Time: Jan 19 2024 11:03A [...] and Physical dated 01/19/2024 documented in this encounterMarion Hospital09-27-2024 NoteHNO ID: [id number] Author: ZACK ABBASI RRT Service: ? Author Type: Registered Resp Therapist Type: Progress Notes Filed: 01/19/2024 15:00 Note Text: PULM FUNCTION: Provider: Phillip Diamond MD Spirometry: 1 [facility] History of Present illness Narrative * Zack Abbasi RRT - 01/19/2024 2:59 PM EDT PULM FUNCTION: Provider: Phillip Diamond MD Spirometry: 1 DLCO: 1 documented in this encounterMarion Hospital09-27-2024 Instructions* Patient Instructions* Victor Hugo Christian DO - 01/19/2024 1:15 PM EDT Hold off Jardiance prior to surgery documented in this encounterMarion Hospital09-27-2024 History of Present illness Narrative* Moiz Koenig MD - 01/19/2024 12:15 PM EDT Images from the original note were not included. [facility] Department of Cardiovascular Medicine SECTION OF CARDIOVASCULAR IMAGING OUTPATIENT VISIT DATE 01/19/2024 OUTPATIENT VISIT TYPE CONSULTATION REFERRING PHYSICIAN Phillip Diamond [address] [place] [address] CHIEF COMPLAINT: Pre-operative evaluation. HISTORY OF PRESENT [...] s/p typical atrial flutter/PAT RFA in 2005 ([place]), with redo [id number], s/p CTI and atypical atrial flutter RFA [...] age 82) Father other ( from [place] effects multiple cancers) Father Prostate Cancer Father [...] minimal luminal caliber throughout = 12 mm Collection Systems Technician: [facility] Transcribe Date/Time: Jan 19 2024 10:29A Dictated [...] ICD10: I34.1 Victor Hugo Christian DO Resident [facility] STAFF PHYSICIAN NOTE OF PERSONAL INVOLVEMENT IN CARE Mr. Quiñones has NYHA III symptoms of dyspnea and fatigue due to severe mitral regurgitation related to prolapse and restricted posterior leaflet. He has longstanding AF issues. He has a class I indication for proceeding to proposed mitral valve surgery with Dr. Diamond. If Mr. Quiñones chooses to have follow-up at [facility], I would be happy to see him. [...] PHYSICIAN: Moiz Koenig MD documented in [facility] History of Present illness Narrative* Dejah Alberts [...] PATIENT PRESENTS WITH AN IMPLANTABLE OR ATTACHED CURRICULUM SUPERVISOR: No RADIOLOGY DEPARTMENT: CT; Exam(s) Completed: Cardiac PERIPHERAL IV DATA: Site assessment: Clean,Dry and Intact, Site disposition Discontinued SIGNED BY: RT Ilene(R) January 19, 2024 10:20 AM documented in this encounterMarion [facility]09-27-2024 Note[facility]-2024 [facility]24 History of Present illness Narrative* Africa Galvin [...] PATIENT PRESENTS WITH AN IMPLANTABLE OR ATTACHED CURRICULUM SUPERVISOR: No RADIOLOGY DEPARTMENT: General X-ray: Exam(s) Completed: Chest X-Ray PERIPHERAL IV DATA: Not applicable SIGNED BY: RT George(R) January 19, 2024 8:50 AM documented in this encounterMarion Hospital09-27-2024 Note[facility]08-16-2024 Telephone encounter Note* Telephone Encounter - Africa [...] and general knowledge given to pt n/a [facility]08-16-2024 Miscellaneous Notes* Telephone Encounter - Africa Wang [...] if outside cath not ordered- done outside: [facility] 11.21.2023 Redo OHS/Robotic surgery/radiation to [...] Dr. Wray for MVR. documented in this encounterMarion Hospital08-14-2024 Telephone encounter Note * Telephone Encounter - Africa Wang RN - 12/06/2023 4:19 PM EDT To [facility] for review: moderate-severe MR/mild posterior MAC, mild TR, A-Fib/Flutter (ablations 2005, 2017, 2018) [facility]08-14-2024 Telephone encounter Note* Telephone Encounter - Yvonne Silva - 12/06/2023 3:32 PM EDT Records in Epic, Images on Syngo. To NPM [facility]08-14-2024 Telephone encounter Note* Telephone Encounter - Yvonne Silva - 12/06/2023 3:32 PM EDT Patient was referred to Dr. Diamond by Dr. Wray for MVR. [facility]12-11-2023 Discharge summary Author Jerardo Millan [facility] April 03, 2023 11:21am Note Date/Time April 03, 2023 11:18am [facility] Medical Records Department [address] [place] [address] Instructions for Home/Discharge Instructions 04/03/23 1115 MR#: [id number] Acct: [id number] Name: TRE QUIÑONES Rep #:[id number] : 1955 68 From: Jerardo Kitchen [place] [facility] [place]charge Instructions Diet Discharge [...] Attending Provider: Jerardo Millan Primary Care Provider: [facility] Consulting Providers: Sherif Kiser Instructions Additional Instructions [...] MD [Med Staff - Active Staff] - [facility] Doctor,Out of [Non-Staff] - Disposition Disposition (needs filled in before D/C Order can be placed): Home, Self Care 04/03/23 1121<Electronically signed by Jerardo Millan MD>Jerardo Millan MD CC: [facility] Sherif Kiser MD; [facility] ~ Signed [facility] Work Phone: 1(229) 907-475312-11-2023 History and physical note Author Jerardo Millan [facility] April 03, 2023 7:27am Note Date/Time April 03, 2023 7:27am [facility] Medical Records Department [address] [place] [address] History & Physical Exam 04/03/2325 MR#: [id number] Acct: [id number] Name: TRE QUIÑONES Rep #:[id number] : 1955 68 From: Jerardo Kitchen PCP: [place], [place] Status:[facility] Location: [place] [address] History and Physical Date of Admission: 04/03/23 Date of Service: 03/22/23 MR#: [id number] Acct: [id number] Name: TRE QUIÑONES Rep #: [id number] : 1955 Provider: Dr. Jerardo Millan MD Age/Sex: 68/M Location: [facility] Status: Signed Intake Vital Signs 12/20/2319:59 03/22/2308:22 [...] mg PO QHS 03/20/23 [History Confirmed 03/22/23] [facility] Medical History Acute posterior anal fissure Anxiety [...] that he was doing some riding lawn moMD Insiderhe day after his hospital discharge. He states [...] changes are noted:Date of Service: 03/22/23 MR#: [id number] Acct: [id number] Name: TRE QUIÑONES Rep #: [id number] : 1955 Provider: Dr. Jerardo Millan MD Age/Sex: 68/M Location: [facility] Status: Signed Intake Vital Signs 12/20/2319:59 03/22/2308:22 [...] (if applicable): CC: [facility]. Jer[facility]an [facility]; [facility]~ Signed [facility] Work Phone: 1(565) 927-293208-29-2023 Consult note Author [facility] December 20, 2022 3:11pm Note Date/Time December 20, 2022 3: 11pm [facility] Medical Records Department [address] [place] [address] Counseling Note - Pharmacy 12/20/22 1510 MR#: [id number] Acct: [id number] Name: TRE QUIÑONES Imtiaz Rep #:[id number] : 1955 67 From: Kenzie Hilliard PCP: [place] Status:ADM NYDIA Y Location: [place] [address] Pharmacy [facility] Service has performed discharge medication reconciliation [...] Signature (if applicable): Date CC: ~ Signed [facility] Work Phone: 1(465) 592-574008-29-2023 Discharge summary Author Becky Jaimes [facility] December 20, 2022 2:49pm Note Date/Time December 20, 2022 9: 48am [facility] Medical Records Department [address] [place] [address] Instructions for Home/Discharge Instructions 12/20/22 0905 MR#: [id number] Acct: [id number] Name: QUIÑONESTRE COYLE Imtiaz Rep #:[id number] : 1955 67 From: Becky MENSAH PA-C [facility] Status:ADM NYDIA Discharge Instructions Diet Discharge Diet: [...] weeks following your surgery date. Please call [phone] for an appointment. Test Results: Test results from this visit will be discussed in further detail at your follow- up appointment, if applicable. Discharge Plan Admission Admit Date/Time: 12/19/22 18:26 Primary Reason for Your Visit: Incarcerated umbilical hernia Attending Provider: Jerardo Millan Primary Care Provider: [facility] Consulting Providers: Juana Rodriguez Instructions Additional Instructions [...] our office to schedule an appointment at [phone] or if any questions or concerns Discharge [...] a 2 week follow-up with Dr. Millan) [place] [Primary Care Provider] - Disposition Disposition (needs filled in before D/C Order can be placed): Home, Self Care 12/20/22 0359<Electronically signed by Becky MENSAH PA-C>Becky MENSAH PA-C CC: Dr. Juana Rodriguez MD; [facility] ~ Signed [facility] Work Phone: 1(499) 417-650008-29-2023 Progress note Author Skyler Howard [facility] December 20, 2022 1:43pm Note Date/Time December 19, 2022 5: 55pm [facility] Medical Records Department [address] [place] [address] Progress Note - Hospitalist 12/19/22 1750 MR#: [id number] Acct: [id number] Name: TRE QUIÑONES Rep #:[id number] : 1955 67 From: Skyler douglas MD PCP: [place] Status:ADM NYDIA Location: [place] [address] Subjective Subjective 7-year-old male presents to the [...] % (Auto) 69.7, Lymph % (Auto) 21.0, Lynn % (Auto) 6.9, Eos % (Auto) 1.0, [...] Charges/Coding Visit Charges Office Visits / Consults: 31746 OV L3 New 12/20/22 1343 <Electronically signed by Skyler Howard MD> Cosigner Signature (if applicable): CC: ~ Signed [facility] Work Phone: 1(439) 722-629308-29-2023 Progress note Author Juana Rodriguez [facility] December 20, 2022 9:53am Note Date/Time December 20, 2022 8: 56am [facility] Medical Records Department [address] [place] [address] Progress Note - Hospitalist 12/20/22 0856 MR#: [id number] Acct: [id number] Name: TRE QUIÑONES Rep #:[id number] : 1955 67 From: Juana Rodriguez MD [facility] Status:[place]M NYDIA Location: [place] [address] Reason for Visit Reason for Visit: Diagnoses [...] % (Auto) 69.7, Lymph % (Auto) 21.0, Lynn % (Auto) 6.9, Eos % (Auto) 1.0, [...] % (Auto) 68.6, Lymph % (Auto) 20.1, Lynn % (Auto) 9.5, Eos % (Auto) 0.8, [...] starting tomorrow Charges/Coding Visit Charges Inpatient E&M: 62645 [facility] Hosp L1 12/20/22 0953 <Electronically signed by Juana Rodriguez MD> Martinezigner Signature (if applicable): CC: ~ Signed [facility] Work Phone: 1(676) 133-759808-29-2023 Procedure [facility] 12-20-2022 Progress note Author Becky Jaimes [facility] December 20, 2022 9:04am Note Date/Time December 20, 2022 8: 55am [facility] Medical Records Department [address] [place] [address] Progress Note - Surgery 12/20/22 0853 MR#: [id number] Acct: [id number] Name: TRE QUIÑONES Rep #:[id number] : 1955 67 From: Becky MENSAH PA-C PCP: [facility] Status:ADM NYDIA Location: [place] [address] Subjective Subjective Patient is a 67 y/o [...] % (Auto) 69.7, Lymph % (Auto) 21.0, Lynn % (Auto) 6.9, Eos % (Auto) 1.0, [...] % (Auto) 68.6, Lymph % (Auto) 20.1, Lynn % (Auto) 9.5, Eos % (Auto) 0.8, [...] Hospitalist input Charges/Coding Visit Charges Inpatient E&M: 08474 Subs Hosp L1 (Post-op) 12/20/22 0904 <Electronically signed by Becky MENSAH PA-C> Cosigner Signature (if applicable): CC: ~ Signed [facility] Work Phone: 1(858) 325-527608-28-2023 History and physical note Author Jerardo Millan [facility] December 19, 2022 5:29pm Note Date/Time December 19, 2022 5: 30pm [facility] Medical Records Department [address] [place] [address] History & Physical Exam 12/19/22 1715 MR#: [id number] Acct: [id number] Name: TRE QUIÑONES Rep #:[id number] : 1955 67 From: Jerardo Kitchen [place] [facility] [place]: [facility] A-3 HPI - General General Date of Admission: 12/19/22 Date of Service: 12/19/22 Chief Complaint: Acute onset and bulging at umbilical hernia HPI Narrative TRE QUIÑONES, is a 67 M who presents to [facility] ER with c/o acute ab pain and [...] He has no prior abdominal surgical history. [facility] Medical History (Updated 12/19/22 @ 16:20 by [...] % (Auto) 69.7, Lymph % (Auto) 21.0, Lynn % (Auto) 6.9, Eos % (Auto) 1.0, [...] Reading Location ID and State: [facility] / ID Tel , Service support , Assessment & [...] observation status. Charges/Coding Visit Charges Inpatient E&M: 08655 Init Hosp L2 12/19/22 1729 <Electronically signed by Jerardo Millan MD> Cosigner Signature (if applicable): CC: Dr. Jerardo Millan MD; [facility]~ Signed [facility] Work Phone: 1(668) 196-220008-28-2023 Discharge summary Author Asad Mcdonough [facility] December 19, 2022 5:15pm Note Date/Time December 19, 2022 2: 18pm [facility] Medical Records Department [address] [place] [address] Emergency Department Summary 12/19/22 MR#: [id number] Acct: [id number] Name: TRE QUIÑONES Rep #:[id number] : 1955 67 From: Asad Mcdonough MD PCP: [facility] [place] Location: [facility]- A-3 HPI HPI - GI History of [...] like this. [facility] and [facility] for [facility] repair, he states they were putting it off until he could lose weight and become a better surgical candidate. [facility] Medical History (Updated 12/19/22 @ 16:20 by [...] % (Auto) 69.7 Lymph % (Auto) 21.0 Lynn % (Auto) 6.9 Eos % (Auto) 1.0 [...] Reading Location ID and State: [facility] / ID Tel , Service support , Management Discussion w/another healthcare provider: Hospitalist and Phonograph Needle Tip Maker (Sander Millan) Discharge Plan Dx/Rx/DC Orders Clinical Impression: Incarcerated umbilical hernia Disposition Disposition: Acute Care Hospital [facility] What to do if you have Problems For any increased pain, shortness of breath, bleeding, nausea or vomiting, chestpain, or any unexpected problems, contact your Primary Care Provider. Call [facility] ([phone]) or report to the closest Emergency Room. Call 911 if necessary. 12/19/22 1651 <Electronically signed by Asad Mcdonough MD> Cosigner Signature (if applicable): CC: [facility] ~ Signed ADDENDUM by Dr. Asad Mcdonough MD on 12/19/22 at 1713 Patient is going to laparoscopy tonight. Preop EKG was obtained, it shows AV sequential pacing and capture without acute injury pattern, and 1 view chest x- ray on my interpretation shows mild cardiomegaly but no other acute abnormalities. 12/19/22 3321<Electronically signed by Asad Mcdonough MD> Cosigner Signature (if applicable): cc: [facility] ~* Signed [facility] Work Phone: Evaluation note* Diagnosis Onset Date Resolution Status Incarcerated umbilical hernia acute [facility] Work Phone: Evaluation note* Diagnosis Onset Date Resolution Status Incarcerated umbilical hernia resolved Status post umbilical hernia repair, follow-up exam acute Status post umbilical hernia repair, follow-up exam acute Status post umbilical hernia repair, follow-up exam acute [facility] Work Phone: evaluation note* Diagnosis 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 Unspecified disorders of arteries and arterioles Pre-operative cardiovascular examination Atrial fibrillation, unspecified type (HCC) Mitral valve disorder Mitral valve disorders Disorder of artery or arteriole (HCC) Unspecified disorders of arteries and arterioles Pre-operative cardiovascular examination Atrial fibrillation, unspecified type (HCC) Mitral valve disorder Mitral valve disorders [facility] Diagnosis Pre-operative cardiovascular examination- Primary Disorder of artery or arteriole (HCC) Unspecified disorders of arteries and arterioles Atrial fibrillation, unspecified type (HCC) Mitral valve disorder Mitral valve disorders Disorder of artery or arteriole (HCC) Unspecified disorders of arteries and arterioles Pre-operative cardiovascular examination Atrial fibrillation, unspecified type (HCC) Mitral valve disorder Mitral valve disorders [facility]* Diagnosis Pre-operative cardiovascular examination- Primary Disorder of artery or arteriole (HCC) Unspecified disorders of arteries and arterioles Atrial fibrillation, unspecified type (HCC) Mitral valve disorder Mitral valve disorders Disorder of artery or arteriole (HCC) Unspecified disorders of arteries and arterioles Pre-operative cardiovascular examination Atrial fibrillation, unspecified type (HCC) Mitral valve disorder Mitral valve disorders [facility]* Diagnosis Pre-op exam- Primary Preoperative examination, [...] Mitral valve disorders [facility]* Diagnosis Disorder of artery or arteriole (HCC) Unspecified disorders of arteries and arterioles Pre-operative cardiovascular examination Atrial fibrillation, unspecified type (HCC) Mitral valve disorder Mitral valve disorders Disorder of artery or arteriole (HCC) Unspecified disorders of arteries and arterioles Pre-operative cardiovascular examination Atrial fibrillation, unspecified type (HCC) Mitral valve disorder Mitral valve disorders [facility]* Diagnosis Pacemaker reprogramming/check Fitting and adjustment of cardiac pacemaker Disorder of artery or arteriole (HCC) Unspecified disorders of arteries and arterioles Pre-operative cardiovascular examination Atrial fibrillation, unspecified type (HCC) Mitral valve disorder Mitral valve disorders [facility]* Diagnosis Disorder of artery or arteriole (HCC) Unspecified disorders of arteries and arterioles Pre-operative cardiovascular examination Atrial fibrillation, unspecified type (HCC) Mitral valve disorder Mitral valve disorders Disorder of artery or arteriole (HCC) Unspecified disorders of arteries and arterioles Pre-operative cardiovascular examination Atrial fibrillation, unspecified type (HCC) Mitral valve disorder Mitral valve disorders [facility]* Diagnosis Encounter for preoperative anesthesiology assessment for cardiac surgery- Primary Disorder of artery or arteriole (HCC) Unspecified disorders of arteries and arterioles Pre-operative cardiovascular examination Atrial fibrillation, unspecified type (HCC) Mitral valve disorder Mitral valve disorders documented in this encounter [facility] note* Diagnosis Mitral valve insufficiency, unspecified etiology- Primary Disorder of artery or arteriole (HCC) Unspecified disorders of arteries and arterioles Pre-operative cardiovascular examination Atrial fibrillation, unspecified type (HCC) Mitral valve disorder Mitral valve disorders [facility]* Diagnosis Disorder of artery or arteriole (HCC) Unspecified disorders of arteries and arterioles Pre-operative cardiovascular examination Atrial fibrillation, unspecified type (HCC) Mitral valve disorder Mitral valve disorders Disorder of artery or arteriole (HCC) Unspecified disorders of arteries and arterioles Pre-operative cardiovascular examination Atrial fibrillation, unspecified type (HCC) Mitral valve disorder Mitral valve disorders documented in this encounter [facility] note* Diagnosis S/P MVR (mitral valve repair)- Primary Other postprocedural status S/P TVR (tricuspid valve repair) Other postprocedural status S/P Maze operation for atrial fibrillation Other postprocedural status Cardiac pacemaker in situ [facility]* Diagnosis Surgery follow-up Follow-up examination, following unspecified surgery documented in this encounter [facility] note* Diagnosis Dyspnea, unspecified type documented in this encounter [facility] [employer] Work Phone: Evaluation note* Diagnosis Dyspnea, unspecified type- Primary Dyspnea, unspecified type documented in this encounter [facility] [employer] Work Phone: Evaluation note* Diagnosis Onset Date Resolution Status Admit Date Dyspnea on exertion acute August 232024 11:24am S/P mitral valve repair acute [facility] 2024 11:24am Atypical atrial flutter chronic [facility] 2024 11:24am Essential (primary) hypertension chronic September 18, 2024 11:24am Presence of permanent cardiac pacemaker December 01, 2017 chronic September 18 11:24am S/P tricuspid valve repair chronic September 18, 2024 11:24am [facility] Work Phone: Evaluation note* Diagnosis Erectile dysfunction, unspecified erectile dysfunction type- Primary documented in this encounter [facility] note* Diagnosis Erectile dysfunction, unspecified erectile dysfunction type- Primary [facility] (narrative[facility] Outpatient Procedure (Routine) - New Request Specialty Diagnoses / Procedures Referred By Contac t Referred To Contact [facility] Diagnoses Disorder of artery or arteriole (HCC) Pre-operative cardiovascular examination Atrial fibrillation, unspecified type (HCC) Mitral valve disorder Procedures LUNG DIFFUSION CAPACITY (DLCO) DIFFUSING CAPACITY Phillip Diamond MD [address] [place] [address] Res[facility] [address] [place] [address] Referral ID Status Reason Start Date Expiration Date Visits Requested Visits Authorized [id number] New Request Auto-Generat ed Referral 12/08/2023 01/06/2025 1 1 * Outpatient Procedure (Routine) - New Request Specialty Diagnoses / Procedures Referred By Contac t Referred To Contact [facility] Diagnoses Disorder of artery or arteriole (HCC) Pre-operative cardiovascular examination Atrial fibrillation, unspecified type (HCC) Mitral valve disorder Procedures SPIROMETRY BASELINE ONLY SPMTRY W/VC EXPIRATORY ABELARDO W/WO MXML VOL VNTJ Phillip Diamond MD [address] [place] [address] Res[facility] [address] [place] [address] Referral ID Status Reason Start Date Expiration Date Visits Requested Visits Authorized [id number] New Request Auto-Generat ed Referral 12/08/2023 01/06/2025 [...] MTRL W/WO CNTRST IMGES Phillip Diamond MD [address] [place] [address] Ct Imaging [place] [address] Referral ID Status Reason Start Date Expiration Date Visits Requested Visits Authorized [id number] New Request Auto-Generat ed Referral 12/08/2023 01/06/2025 1 1 * Outpatient Procedure (Routine) - New Request Specialty Diagnoses / Procedures Referred By Contac t Referred To Contact [facility] Diagnoses Disorder of artery or arteriole (HCC) Pre-operative cardiovascular examination Atrial fibrillation, unspecified type (HCC) Mitral valve disorder Procedures ECHO ECHO TTHRC R-T 2D W/WOM-MODE COMPL SPEC&COLR D Phillip Diamond MD [address] [place] [address] [address] Referral ID Status Reason Start Date Expiration Date Visits Requested Visits Authorized [id number] New Request Auto-Generat ed Referral 12/08/2023 12/07/2024 1 1 * Outpatient Procedure (Routine) - New Request Specialty Diagnoses / Procedures [facility] To [facility] Diagnoses Disorder of artery or arteriole (HCC) Pre-operative cardiovascular examination Atrial fibrillation, unspecified type (HCC) Mitral valve disorder Procedures ECG COMPLETE ECG ROUTINE ECG W/LEAST 12 LDS W/I&R Phillip Diamond MD [address] [place] [address] [place] [address] Referral ID Status Reason Start Date Expiration Date Visits Requested Visits Authorized [id number] New Request Auto-Generat ed Referral 12/08/2023 12/07/2024 1 1 * Consult, Test, Treat (Routine) - Authorized Specialty Diagnoses / Procedures Referred By Dwayne t Referred To Contact Cardiac Surg Diagnoses Disorder of artery or arteriole (HCC) Pre-operative cardiovascular examination Atrial fibrillation, unspecified type (HCC) Mitral valve disorder Procedures CARDIOTHORACIC PREOP EVALUATION OFFICE/OUTPATIENT [facility] 60 MINUTES Phillip Diamond MD [address] [place] [address] Referral ID Status Reason Start Date Expiration Date Visits Requested Visits Authorized [id number] Authorized PCP Requested Referral 12/08/2023 12/07/2024 1 1 * Consult, Test, Treat (Routine) - Authorized Specialty Diagnoses / Procedures Referred By Dwayne t Referred To Contact Cardiology Diagnoses Disorder of artery or arteriole (HCC) Pre-operative cardiovascular examination Atrial fibrillation, unspecified type (HCC) Mitral valve disorder Procedures CONSULT TO [facility] Phillip Diamond MD [address] [id number] Referral ID Status Reason Start Date Expiration Date Visits Requested Visits Authorized [id number] Authorized PCP Requested Referral 12/08/2023 12/07/2024 1 1 [facility] for referral (narrative)* Outpatient Procedure (Routine) - Denied Specialty Diagnoses / Procedures Referred By Contac t Referred To Contact [facility] Diagnoses Pacemaker reprogramming/check Procedures CARDIAC IMPLANTABLE DEVICE CHECK [address] [place] [address] Referral ID Status Reason Start Date Expiration Date V isits Requested Visits Authorized [id number] Denied Auto-Generat ed Referral Patient Cleared - Admin/Chairm an/Director advise to proceed or did not respond 12/12/2023 12/11/2024 1 0 * Outpatient Procedure (Routine) - Denied Specialty Diagnoses / Procedures Referred By Contac t Referred To Contact [facility] Diagnoses Pacemaker reprogramming/check Procedures CARDIAC [place] [address] Heart [facility] V[facility] [address] [address] Referral ID Status Reason Start Date Expiration Date V isits Requested Visits Authorized [id number] Denied Auto-Generat ed Referral Patient Cleared - Admin/Chairm an/Director advise to proceed or did not respond 12/12/2023 12/11/2024 1 0 [facility] for referral (narrative)No reason for referral information [facility] Phone: Reason for visit Narrative* Outpatient Procedure (Routine) - Denied Specialty Diagnoses / Procedures Referred By Contac t Referred To Contact [facility] Diagnoses Pacemaker reprogramming/check Procedures CARDIAC [place] [address] Heart And V[facility] [place] [address] [place] [address] Referral ID Status Reason Start Date Expiration Date V isits Requested Visits Authorized [id number] Denied Auto-Generat ed Referral Patient Cleared - Admin/Chairm an/Director advise to proceed or did not respond 12/12/2023 12/11/2024 1 0 [facility] Summary Purpose Family History Relationship Condition Age at Onset Recorded Date/T peg Not Specified Cerebrovascular accident (CVA) Unknown mother Diabetes mellitus Unknown Hypertension Unknown father Malignant neoplasm Unknown Family Member Condition Father Cancer Father Mother Diabetes - insulin d ependent Mother Advance Directives Advance Directive Response Recorded Date/ Time Name of Medical Power of Crew Clerk December 19, 2022 8:59pm Advance Directives Yes May 12:21pm Living Will Yes December 19 8:59pm Power of Crew Clerk Yes December 19 8:59pm Advance Directive Response Recorded Date/ Time Name of Medical Power of Crew Clerk December 19, 2022 7:59pm Name of Medical Power of Crew Clerk March 20, 2023 8:58am Advance Directives Yes May 11:21am Living Will Yes March 20 8:58am Power of Crew Clerk Yes March 20, 2023 8:58am Documents on File Type Date Recorded Patient Medical Engineer Expl anation Advance Directive(s) 01/23/2024 5:09 AM Date Activated Date Inactivated Comments 01/24/2024 1:30 PM Question Answer Comments Full Code Order Discussed With: Discussion Not M edically Appropriate Date Activated Date Inactivated Comments 01/24/2024 1:30 PM 01/29/2024 9:18 PM Documents on File Type Date Recorded Patient Medical Engineer Expl anation Advance Directive(s) 01/23/2024 5:09 AM Date Activated Date Inactivated Comments 01/24/2024 1:30 PM 01/29/2024 9:18 PM Question Answer Comments Full Code Order Discussed With: Discussion Not M edically Appropriate Advance Directive Response Recorded Date/ Time Do you have a Healthcare Power of Crew Clerk? Yes August 13, 2024 11:47am Advance Directives Yes February 11:19am Advance Directive Response Recorded Date/ Time Advance Directives Yes February 11:19am Advance Directive Response Recorded Date/ Time Living Will Yes November 21, 2023 7:13am Do you have a Healthcare Power of Crew Clerk? 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 S eptember 2024 [...] t Referred To Contact [facility] Procedures CARDIOVASCULAR MEDICINE OP FOLLOW UP APPT ORDER Moiz Koenig MD [address] [place] [address] [facility] Vascular [place] [address] [place] [address] Referral ID Status Reason Start Date Expiration Date Visits Requested Visits Authorized [id number] Ref Not Required PCP Requested Referral 01/19/2024 01/18/2025 1 1 Specialty Diagnoses / Procedures Referred By Contac t Referred To Contact CT IMAGING Diagnoses Disorder of artery or arteriole (HCC) Pre-operative cardiovascular examination Atrial fibrillation, unspecified type (HCC) Mitral valve disorder Procedures CTA CHEST/ABD/PEL (GATED) W IVCON CT ANGIOGRAPHY CHEST W/CONTRAST/NONCONTRAST CT ANGIO ABD&PLVIS CNTRST MTRL W/WO CNTRST Phillip Rayo MD [address] [place] [address] Ct Imaging [place] [address] Referral ID Status Reason Start Date Expiration Date V isits Requested Visits Authorized [id number] Closed Auto-Generate d Referral 12/08/2023 01/06/2025 1 1 Specialty Diagnoses / Procedures Referred By Contac t Referred To Contact Radiology Diagnoses Dyspnea, unspecified type Procedures XR CHEST PA+LAT 2 VIEWS Chelsie Nieves, QUALITY MANAGEMENT COORDINATOR-PEELER OPERATOR [address] [place] [address] [facility] DIAGNOSTIC RADIOLOGY [address] [place] [address] [place] [address] Referral ID Status Reason Start Date Expiration Date Visits Re quested Visits Authorized [id number] Closed 07/10/2023 07/09/2024 1 1 Additional Source Comments (unrecognized sect ion and content) No Status Records FoundNo Status Records FoundNo Status Records FoundNo Status Records FoundNo Status Records FoundNo Status Records FoundNo Status Records FoundNo Status Records Found INFORMATION SOURCE (unrecogn ized section and content) DATE CREATED AUTHOR 10/18/2017 [facility] DATE CREATED AUTHOR AUTHOR'S ORGANIZ ATION 03/11/2021 [facility] DATE CREATED AUTHOR AUTHOR'S ORGANIZ ATION 05/23/2021 [facility] DATE CREATED AUTHOR AUTHOR'S ORGANIZ ATION 07/13/2023 [facility] DATE CREATED AUTHOR AUTHOR'S ORGANIZ ATION 04/18/2024 [facility] DATE CREATED AUTHOR AUTHOR'S ORGANIZ ATION 11/05/2024 [facility] DATE CREATED AUTHOR AUTHOR'S ORGANIZ ATION 12/17/2024 [facility] DATE CREATED AUTHOR AUTHOR'S ORGANIZ ATION [facility]/14/20[facility] Care Teams (unrecognized sec tion and content) Team Status: Active Member Role Status Dates Dr. Evelyn Kruse MD Family Provider Active [facility] Primary Care Provider Active Team Status: Active Member Role Status Dates Dr. Asad Mcdonough MD Emergency Provider Active [facility] Primary Care Provider Active Dr. Jerardo Millan MD Attending Provider, Other Provi shavonne Active Team Status: Active Member Role Status Dates Dr. Asad Mcdonough MD Emergency Provider Active [facility] Primary Care Provider Active Dr. Jerardo Millan MD Admit Provider, Other Provider Active Dr. Juana Rodriguez MD Other Provider Active Becky MENSAH PAErichC Attending Provider Active Team Status: Active Member Role Status Dates Dr. Asad Mcdonough MD Emergency Provider Active [facility] Primary Care Provider Active Dr. Jerardo Millan MD Admit Provider, Other Provider Active Dr. Juana Rodriguez MD Attending Provider, Other Provid er Active Team Status: Inactive Member Role Status Dates Dr. Asad Mcdonough MD Emergency Provider Active [facility] Primary Care Provider Active Dr. Jerardo Millan MD Admit Provider, Attending Provi shavonne Active Dr. Juana Rodriguez MD Other Provider Active Team Status: Inactive Member Role Status Dates Dr. Jerardo Millan MD Attending Provider, Referring P rovider Active [facility] of [facility] Doctor Primary Care Provider Active Team Status: Inactive Member Role Status Dates Out of [facility] Doctor Primary Care Provider, Referring Pr ovider Active Dr. Jerardo Millan MD Attending Provider Active Team Status: Inactive Member Role Status Dates Out of [facility] Doctor Primary Care Provider Active Dr. Jerardo Millan MD Attending Provider, Referring P rovider Active Team Status: Active Member Role Status Dates Dr. Jerardo Millan MD Attending Provide r, Referring Provider, Other Provider Active [facility] Primary Care Provider Active Dr. Sherif Kiser MD Other Provider Active Team Status: Inactive Member Role Status Dates Dr. Jerardo Millan MD Attending Provider, Referring P rovider Active [facility] Primary Care Provider Active Dr. Sherif Kiser MD Other Provider Active Team Status: Active Member Role Status Dates Dr. Jerardo Millan MD Attending Provider, Referring P rovider Active [facility] Primary Care Provider Active Team Status: Inactive Member Role Status Dates Dr. 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 Relationship Specialty Start Date End Date Phillip Diamond MD [address] [place] [address] Surgeon Cardiac Surg 12/06/23 Omer Wray MD [address] [place] [address] Cardiology 12/06/23 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 Relationship Specialty Start Date End Date Omer Wray MD [address] [id number] 676- PCP - General Cardiology 01/15/24 Phillip Diamond MD [address] [place] [address] Surgeon Cardiac Surg 12/06/23 Omer Wray MD [address] [place] [address] Cardiology 12/06/23 Moiz Koenig MD [address] [place] [address] Primary Staff Physician Cardiology 01/19/24 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 Relationship Specialty Start Date End Date Omer Wray MD [address] [address]78- PCP - General Cardiology 01/15/24 Phillip Diamond MD [address] [place] [address] Surgeon Cardiac Surg 12/06/23 Omer Wray MD [address] [place] [address] Cardiology 12/06/23 Moiz Koenig MD [address] [place] [address] Primary Staff Physician Cardiology 01/19/24 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 Relationship Specialty Start Date End Date Omer Wray MD [address] [phone]- PCP - General Cardiology 01/15/24 Phillip Diamond MD [address] [place] [address] Surgeon Cardiac Surg 12/06/23 Omer Wray MD [address] [place] [phone] Cardiology 12/06/23 Moiz Koenig MD [address] [place] [address] Primary Staff Physician Cardiology 01/19/24 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 Relationship Specialty Start Date End Date Omer Wray MD [address] [phone]- PCP - General Cardiology 01/15/24 Phillip Diamond MD [address] [place] [address] Surgeon Cardiac Surg 12/06/23 Omer Wray MD [address] [place] [phone] Cardiology 12/06/23 Moiz Koenig MD [address] [place], [place] [phone] Primary Staff Physician Cardiology 01/19/24 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 Relationship Specialty Start Date End Date Omer Wray MD [address] [facility] [address] [place] [address] PCP - General Cardiology 01/15/24 Phillip Diamond MD [address] [place] [address] Surgeon Cardiac Surg 12/06/23 Omer Wray MD [address] [place] [phone] Cardiology 12/06/23 Moiz Koenig MD [address] [place] [address] Primary Staff Physician Cardiology 01/19/24 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 Relationship Specialty Start Date End Date Omer Wray MD [address] [address] PCP - General Cardiology 01/15/24 Phillip Diamond MD [address] [place] [address] Surgeon Cardiac Surg 12/06/23 Omer Wray MD [address] [place] [address] Cardiology 12/06/23 Moiz Koenig MD [address] [place] [address] Primary Staff Physician Cardiology 01/19/24 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 Relationship Specialty Start Date End Date Omer Wray MD [address] [address] PCP - General Cardiology 01/15/24 Phillip Diamond MD [address] [place] [address] Surgeon Cardiac Surg 12/06/23 Omer Wray MD [address] [place] [phone] Cardiology 12/06/23 Moiz Koenig MD [address] [place] [address] Primary Staff Physician Cardiology 01/19/24 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 Relationship Specialty Start Date End Date Omer Wray MD [address] [address] PCP - General Cardiology 01/15/24 Phillip Diamond MD [address] [place] [address] Surgeon Cardiac Surg 12/06/23 Omer Wray MD [address] [place] [address] Cardiology 12/06/23 Moiz Koenig MD [address] [place] [address] Primary Staff Physician Cardiology 01/19/24 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 Relationship Specialty Start Date End Date Omer Wray MD [address] [address] PCP - General Cardiology 01/15/24 Phillip Diamond MD [address] [place] [address] Surgeon Cardiac Surg 12/06/23 Omer Wray MD [address] [place] [address] Cardiology 12/06/23 Moiz Koenig MD [address] [place] [address] Primary Staff Physician Cardiology 01/19/24 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 Relationship Specialty Start Date End Date Omer Wray MD [address] [address] PCP - General Cardiology 01/15/24 Phillip Diamond MD [address] [place] [address] Surgeon Cardiac Surg 12/06/23 Omer Wray MD [address] [facility] [place] [address] Cardiology 12/06/23 Moiz Koenig MD [address] [place] [address] Primary Staff Physician Cardiology 01/19/24 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 Relationship Specialty Start Date End Date Omer Wray MD [address] [facility] [address] [place] [address] PCP - General Cardiology 01/15/24 Phillip Diamond MD [address] [place] [address] Surgeon Cardiac Surg 12/06/23 Omer Wray MD [address] [place] [phone] Cardiology 12/06/23 Moiz Koenig MD [address] [place] [address] Primary Staff Physician Cardiology 01/19/24 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 Relationship Specialty Start Date End Date Omer Wray MD [address] [facility] [address] [place], [place] [phone]- PCP - General Cardiology 01/15/24 Phillip Diamond MD [address] [place] [address] Surgeon Cardiac Surg 12/06/23 Omer Wray MD [address] [place] [phone] Cardiology 12/06/23 Moiz Koenig MD [address] [place] [address] Primary Staff Physician Cardiology 01/19/24 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 Relationship Specialty Start Date End Date Omer Wray MD [address] [address]45- PCP - General Cardiology 01/15/24 Phillip Diamond MD [address] [place] [address] Surgeon Cardiac Surg 12/06/23 Omer Wray MD [address] [place] [phone] Cardiology 12/06/23 Moiz Koenig MD [address] [place] [address] Primary Staff Physician Cardiology 01/19/24 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 Relationship Specialty Start Date End Date Omer Wray MD [address] [id number]- PCP - General Cardiology 01/15/24 Phillip Diamond MD [address] [place] [address] Surgeon Cardiac Surg 12/06/23 Omre Wray MD [address] [place] [phone] Cardiology 12/06/23 Moiz Koenig MD [address] [place] [address] Primary Staff Physician Cardiology 01/19/24 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 Relationship Specialty Start Date End Date Omer Wray MD [address] [address] PCP - General Cardiology 01/15/24 Phillip Diamond MD [address] [place] [address] Surgeon Cardiac Surg 12/06/23 Omer Wray MD [address] [place] [phone] Cardiology 12/06/23 Moiz Koenig MD [address] [place] [address] Primary Staff Physician Cardiology 01/19/24 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 Relationship Specialty Start Date End Date Omer Wray MD [address] [address] PCP - General Cardiology 01/15/24 Phillip Diamond MD [address] [place] [address] Surgeon Cardiac Surg 12/06/23 Omer Wray MD [address] [place] [phone] Cardiology 12/06/23 Moiz Koenig MD [address] [place] [address] Primary Staff Physician Cardiology 01/19/24 Team Status: Active Member Role Status Dates [facility] Primary Care Provider Active Team Status: Inactive [...] August 13, 2024 End: August 13, 2024 [facility] Primary Care Provider Active Start: August 13, 2024 End: August 13, 2024 Team Status: Inactive Member Role Status Dates [facility] Primary Care Provider Active Start: September 18, 2024 End: September 18, 2024 [facility] Referring Provider Active Start: Ct 2024 End: September 18, 2024 Evelyn Deleon FACTORY MACHINE COMPUTER OPERATOR, FACTORY MACHINE COMPUTER OPERATOR-C Attending Provider Active S tart: September 18, 2024 End: September 18, 2024 Team Status: Inactive Member Role Status Dates [facility] Primary Care Provider Active Start: September 18, 2024 End: September 18, 2024 Evelyn Deleon FACTORY MACHINE COMPUTER OPERATOR, FACTORY MACHINE COMPUTER OPERATOR-C Attending Provider Active S tart: September 18, 2024 End: September 18, 2024 Evelyn Deleon FACTORY MACHINE COMPUTER OPERATOR, FACTORY MACHINE COMPUTER OPERATOR-C Referring Provider Active S tart: September 18, 2024 End: September 18, 2024 Team Status: Inactive Member Role Status Dates [facility] Primary Care Provider Active Start: September 19, 2024 End: September 19, 2024 Dr. Omer Wray MD Attending Provider Active S tart: September 19, 2024 End: September 19, 2024 Team Status: Active Member Role/Relationship Status Dates [facility] Primary Care Provider Active Team Status: Inactive Member Role/Relationship Status Dates Dr. Qamar Rosario DO Attending Provider Active Start : August 13, 2024 End: August 13, 2024 Dr. Qamar Rosario DO Emergency Provider Active Start : August 13, 2024 End: August 13, 2024 [facility] Primary Care Provider Active Start: August 13, 2024 End: August 13, 2024 Team Status: Inactive Member Role/Relationship Status Dates [facility] Primary Care Provider Active Start: September 18, 2024 End: September 18, 2024 [facility] Referring Provider Active Start: Ct amry 2024 End: September 18, 2024 Evelyn Deleon FACTORY MACHINE COMPUTER OPERATOR, FACTORY MACHINE COMPUTER OPERATOR-C Attending Provider Active S tart: September 18, 2024 End: September 18, 2024 Team Status: Inactive Member Role/Relationship Status Dates [facility] Primary Care Provider Active Start: September 18, 2024 End: September 18, 2024 Evelyn Deleon FACTORY MACHINE COMPUTER OPERATOR, FACTORY MACHINE COMPUTER OPERATOR-C Attending Provider Active S tart: September 18, 2024 End: September 18, 2024 Evelyn Deleon FACTORY MACHINE COMPUTER OPERATOR, FACTORY MACHINE COMPUTER OPERATOR-C Referring Provider Active S tart: September 18, 2024 End: September 18, 2024 Team Status: Inactive Member Role/Relationship Status Dates Dr. Omer Wray MD Attending Provider Active S tart: September 19, 2024 End: September 19, 2024 Dr. Omer Wray MD Referring Provider Active S tart: September 19, 2024 End: September 19, 2024 Team Status: Active Member Role/Relationship Status Dates [facility] Primary Care Provider Active Start: October 24, 2024 Dr. 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 Start Date End Date Denny Cifuentes MD [address] [place] [phone] Surgeon Urology 11/14/22 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 Relationship Specialty Start Date End Date Denny Cifuentes MD [address] [place] [phone] Surgeon Urology 11/14/22 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 Relationship Specialty Start Date End Date Omer Wray MD [address] [phone] PCP - General Cardiology 01/15/24 Phillip Diamond MD [address] [place] [address] Surgeon Cardiac Surg 12/06/23 Omer Wray MD [address] [place] [address] Cardiology 12/06/23 Moiz Koenig MD [address] [place] [address] Primary Staff Physician Cardiology 01/19/24 Team Status: Inactive Member Role/Relationship Status Dates [facility] Primary Care Provider Active Start: September 18, 2024 End: September 18, 2024 [facility] Referring Provider Active Start: Ludwig hernandez 2024 End: September 18, 2024 Evelyn Deleon FACTORY MACHINE COMPUTER OPERATOR, FACTORY MACHINE COMPUTER OPERATOR-C Attending Provider Active S tart: September 18, 2024 End: September 18, 2024 Team Status: Inactive Member Role/Relationship Status Dates [facility] Primary Care Provider Active Start: September 18, 2024 End: September 18, 2024 Evelyn Deleon FACTORY MACHINE COMPUTER OPERATOR, FACTORY MACHINE COMPUTER OPERATOR-C Attending Provider Active S tart: September 18, 2024 End: September 18, 2024 Evelyn Deleon FACTORY MACHINE COMPUTER OPERATOR, FACTORY MACHINE COMPUTER OPERATOR-C Referring Provider Active S tart: September 18, 2024 End: September 18, 2024 Team Status: Inactive Member Role/Relationship Status Dates Dr. Omer Wray MD Attending Provider Active S tart: September 19, 2024 End: September 19, 2024 Dr. Omer Wray MD Referring Provider Active S tart: September 19, 2024 End: September 19, 2024 Team Status: Active Member Role/Relationship Status Dates [facility] Primary Care Provider Active Start: October 24, 2024 Dr. Omer Wray MD Attending Provider Active S tart: October 24, 2024 Team Status: Inactive Member Role/Relationship Status Dates Evelyn Deleon FACTORY MACHINE COMPUTER OPERATOR, FACTORY MACHINE COMPUTER OPERATOR-C Attending Provider Active S tart: October 24, 2024 End: October 24, 2024 Evelyn Deleon FACTORY MACHINE COMPUTER OPERATOR, FACTORY MACHINE COMPUTER OPERATOR-C Referring Provider Active S tart: October 24, 2024 End: October 24, 2024 [facility] Primary Care Provider Active Start: October 24, 2024 End: October 24, 2024 Team Status: Inactive Member Role/Relationship Status Dates [facility] Primary Care Provider Active Start: December 19, 2024 End: December 19, 2024 Dr. Omer Wray MD Attending Provider Active S tart: December 19, 2024 End: December 19, 2024 Team Status: Active Member Role/Relationship Status Dates [facility] Primary care physician Active Team Status: Active Member Role/Relationship Status Dates [facility] Primary care physician Active Start : October 24, 2024 Dr. Omer Wray MD Attending physician Active Start: October 24, 2024 Team Status: Inactive Member Role/Relationship Status Dates Evelyn Deleon FACTORY MACHINE COMPUTER OPERATOR, FACTORY MACHINE COMPUTER OPERATOR-C Attending physician Active Start: October 24, 2024 End: October 24, 2024 Evelyn Deleon FACTORY MACHINE COMPUTER OPERATOR, FACTORY MACHINE COMPUTER OPERATOR-C Referring Provider Active S tart: October 24, 2024 End: October 24, 2024 [facility] Primary care physician Active Start : October 24, 2024 End: October 24, 2024 Team Status: Inactive Member Role/Relationship Status Dates Dr. Omer Wray MD Attending physician Active Start: December 19, 2024 End: December 19, 2024 Dr. Omer Wray MD Referring Provider Active S tart: December 19, 2024 End: December 19, 2024 Team Status: Inactive Member Role/Relationship Status Dates [facility] Primary care physician Active Start : January 13, 2025 End: January 13, 2025 [facility] Referring Provider Active Start: Se ptember 2024 End: January 13, 2025 Jolene Larkin Attending physician Active Start: January 13, 2025 End: January 13, 2025 Team Status: Inactive Member Role/Relationship Status Dates [facility] Primary care physician Active Start : January 13, 2025 End: January 13, 2025 [facility] Referring Provider Active Start: Se ptember 2024 End: January 13, 2025 Evelyn Deleon FACTORY MACHINE COMPUTER OPERATOR, FACTORY MACHINE COMPUTER OPERATOR-C Attending physician Active Start: January 13, 2025 End: January 13, 2025 Team Status: Inactive Member Role/Relationship Status Dates [facility] care physician Active Start : January 14, 2025 End: January 14, 2025 Dr. Omer Wray MD Attending physician Active Start: January 14, 2025 End: January 14, 2025 Team Status: Inactive Member Role/Relationship Status Dates [facility] physician Active Start : January 18, [...] or prosecute any alcohol or drug abuse patient.[facility] HospitalIn the event this information is protected by the Federal Confidentiality of Alcohol and Drug Abuse Patient Records regulations: The Federal rules restrict any use of the information to criminally investigate or prosecute any alcohol or drug abuse patient.[facility] HospitalIn the event this information is protected by the Federal Confidentiality of Alcohol and Drug Abuse Patient Records regulations: The Federal rules restrict any use of the information to criminally investigate or prosecute any alcohol or drug abuse patient.[facility] HospitalIn the event this information is protected by the Federal Confidentiality of Alcohol and Drug Abuse Patient Records regulations: The Federal rules restrict any use of the information to criminally investigate or prosecute any alcohol or drug abuse patient.[facility] HospitalIn the event this information is protected by the Federal Confidentiality of Alcohol and Drug Abuse Patient Records regulations: The Federal rules restrict any use of the information to criminally investigate or prosecute any alcohol or drug abuse patient.[facility] HospitalIn the event this information is protected by the Federal Confidentiality of Alcohol and Drug Abuse Patient Records regulations: The Federal rules restrict any use of the information to criminally investigate or prosecute any alcohol or drug abuse patient.[facility] HospitalIn the event this information is protected by the Federal Confidentiality of Alcohol and Drug Abuse Patient Records regulations: The Federal rules restrict any use of the information to criminally investigate or prosecute any alcohol or drug abuse patient.[facility] HospitalIn the event this information is protected by the Federal Confidentiality of Alcohol and Drug Abuse Patient Records regulations: The Federal rules restrict any use of the information to criminally investigate or prosecute any alcohol or drug abuse patient.[facility] HospitalIn the event this information is protected by the Federal Confidentiality of Alcohol and Drug Abuse Patient Records regulations: The Federal rules restrict any use of the information to criminally investigate or prosecute any alcohol or drug abuse patient.[facility] HospitalIn the event this information is protected by the Federal Confidentiality of Alcohol and Drug Abuse Patient Records regulations: The Federal rules restrict any use of the information to criminally investigate or prosecute any alcohol or drug abuse patient.[facility] HospitalIn the event this information is protected by the Federal Confidentiality of Alcohol and Drug Abuse Patient Records regulations: The Federal rules restrict any use of the information to criminally investigate or prosecute any alcohol or drug abuse patient.[facility] HospitalIn the event this information is protected by the Federal Confidentiality of Alcohol and Drug Abuse Patient Records regulations: The Federal rules restrict any use of the information to criminally investigate or prosecute any alcohol or drug abuse patient.[facility] HospitalIn the event this information is protected by the Federal Confidentiality of Alcohol and Drug Abuse Patient Records regulations: The Federal rules restrict any use of the information to criminally investigate or prosecute any alcohol or drug abuse patient.[facility] HospitalIn the event this information is protected by the Federal Confidentiality of Alcohol and Drug Abuse Patient Records regulations: The Federal rules restrict any use of the information to criminally investigate or prosecute any alcohol or drug abuse patient.[facility] HospitalIn the event this information is protected by the Federal Confidentiality of Alcohol and Drug Abuse Patient Records regulations: The Federal rules restrict any use of the information to criminally investigate or prosecute any alcohol or drug abuse patient.[facility] HospitalIn the event this information is protected by the Federal Confidentiality of Alcohol and Drug Abuse Patient Records regulations: The Federal rules restrict any use of the information to criminally investigate or prosecute any alcohol or drug abuse patient.[facility] HospitalIn the event this information is protected by the Federal Confidentiality of Alcohol and Drug Abuse Patient Records regulations: The Federal rules restrict any use of the information to criminally investigate or prosecute any alcohol or drug abuse patient.[facility] HospitalIn the event this information is protected by the Federal Confidentiality of Alcohol and Drug Abuse Patient Records regulations: The Federal rules restrict any use of the information to criminally investigate or prosecute any alcohol or drug abuse patient.[facility] HospitalIn the event this information is protected by the Federal Confidentiality of Alcohol and Drug Abuse Patient Records regulations: The Federal rules restrict any use of the information to criminally investigate or prosecute any alcohol or drug abuse patient.[facility] Reason for Visit (unrecogniz ed section and content) Reason Comments Referral Information Pre-Op CTHO Consult Cardiac Preop Checklist Reason Comments Spirometry Specialty Diagnoses / Procedures Referred By Contac t Referred To Contact [facility] Diagnoses Disorder of artery or arteriole (HCC) Pre-operative cardiovascular examination Atrial fibrillation, unspecified type (HCC) Mitral valve disorder Procedures LUNG DIFFUSION CAPACITY (DLCO) DIFFUSING CAPACITY Phillip Diamond MD [address] [place] [address] [facility] [address] [place] [address] Referral ID Status Reason Start Date Expiration Date V isits Requested Visits Authorized [id number] Closed Auto-Generate d Referral 12/08/2023 01/06/2025 1 1 Specialty Diagnoses / Procedures Referred By Contac t Referred To Contact [facility] Diagnoses Disorder of artery or arteriole (HCC) Pre-operative cardiovascular examination Atrial fibrillation, unspecified type (HCC) Mitral valve disorder Procedures SPIROMETRY BASELINE ONLY SPMTRY W/VC EXPIRATORY ABELARDO W/WO MXML VOL VNTJ Phillip Diamond MD [address] [place] [address] [place] [address] Referral ID Status Reason Start Date Expiration Date V isits Requested Visits Authorized [id number] Closed Auto-Generate d Referral 12/08/2023 01/06/2025 1 1 Specialty Diagnoses / Procedures Referred By Contac t Referred To Contact Cardiology Diagnoses Disorder of artery or arteriole (HCC) Pre-operative cardiovascular examination Atrial fibrillation, unspecified type (HCC) Mitral valve disorder Procedures CONSULT TO CARDIOLOGY OFFICE/OUTPATIENT [facility] MDM 60 MINUTES Phillip Diamond MD [facility] [place] [address] Referral ID Status Reason Start Date Expiration Date V isits Requested Visits Authorized [id number] Closed PCP Requested Referral 12/08/2023 12/07/2024 1 [...] MTRL W/WO CNTRST IMGES Phillip Diamond MD [address] [place] [address] Ct [facility] [place] [address] Referral ID Status Reason Start Date Expiration Date V isits Requested Visits Authorized [id number] Closed Auto-Generate d Referral 12/08/2023 01/06/2025 1 1 Reason Comments Radio Main J1 Specialty Diagnoses / Procedures Referred By Contact Referred To Contact Anesthesiology / CARDIAC SURGERY Diagnoses MVr +/- MAZE ?[facility]ot [facility]HS 01/22 AMG Procedures PRE OP Phillip Diamond MD [facility] [place] [address] [facility] [address] [place] [address] Referral ID Status Reason Start Date Expiration Date Visits Re quested Visits Authorized [id number] Closed 01/22/2024 04/23/2024 1 1 Reason Comments Patient Education Specialty Diagnoses / Procedures Referred By Contac t Referred To Contact Cardiac Surg Diagnoses Disorder of artery or arteriole (HCC) Pre-operative cardiovascular examination Atrial fibrillation, unspecified type (HCC) Mitral valve disorder Procedures CARDIOTHORACIC PREOP EVALUATION OFFICE/OUTPATIENT [facility] 60 MINUTES Phillip Diamond MD [address] [place] [address] Referral ID Status Reason Start Date Expiration Date V isits Requested Visits Authorized [id number] Closed PCP Requested Referral 12/08/2023 12/07/2024 1 [...] AND BYPASS FULL MAZE W/ CARDIOPULMONARY BYPASS [facility] [address] [place] [address] Referral ID Status Reason Start Date Expiration Date Visits Re quested Visits Authorized [id number] 1 1 Reason Comments Follow Up Phone Call [facility] follow up call phillip flowers clear. Reason Comments Post Op Reason Comments Patient Update Specialty Diagnoses / Procedures Referred By Dwayne rush Referred To Contact Radiology Diagnoses Dyspnea, unspecified type Procedures XR CHEST PA+LAT 2 VIEWS Chelsie Nieves, QUALITY MANAGEMENT COORDINATOR-PEELER OPERATOR [address] [place] [id number] [facility] DIAGNOSTIC RADIOLOGY [address] [place] [address] [place] [address] Referral ID Status Reason Start Date Expiration Date Visits Re quested Visits Authorized [id number] Closed 07/10/2023 07/09/2024 1 1 Reason Comments Other Annual follow up, ma dication refills Denies uti symptoms, denies worsening [...] BE BASED ON THE PRIMARY CLINICAL RECORDS. [facility]. provides no warranty or guarantee of the accuracy or completeness of information in this document.
[2025-01-25 16:10] LABS: Troponin T High Sens 4 HR 42 ng/L (<=22)
[2025-01-26 03:48] VITALS: BP 136/74; PULSE 61; RESP 18; TEMP 36.8; O2SAT 93
[2025-01-26 03:51] VITALS: BMI 42.7
[2025-01-26 07:15] VITALS: PULSE 66; RESP 16; O2SAT 95
[2025-01-26 07:23] VITALS: PULSE 65
[2025-01-26 07:31] LABS: Hematocrit 41.7 % (40-54); Hemoglobin 13.9 g/dL (13.0-16.5); Immature Granulocytes Count 0.040 X10^3/uL (0.0-0.0); Mean Corp Hgb Conc 33.3 g/dL (32-36); Mean Corpuscular Volume 84.2 fL (80-94); Mean Platelet Vol. 10.4 fl (6.2-12.0); NRBC Flagged by Analyzer 0 % (0-5); Platelet Count 232 K/mm3 (150-450); RBC Distribution Width CV 14.4 % (11.6-14.6); RBC Distribution Width SD 43.8 fl (35.1-43.9); Red Blood Count 4.95 M/mm3 (4.6-6.2); White Blood Count 9.5 K/mm3 (4.4-11.0)
[2025-01-26 08:16] LABS: Anion Gap 13 (5-15); BUN 27 mg/dL (4-19); BUN/Creat Ratio 28.5 RATIO (10-20); Calcium,Total 9.7 mg/dL (7.6-11.0); Carbon Dioxide 23.1 mmol/L (21.0-32.0); Chloride 105 mmol/L (98-108); Estimated Creatinine Clearance 109.63 ml/min (50-250); Glucose 135 mg/dL (70-99); Potassium 4.8 mmol/L (3.3-5.1)
[2025-01-26 08:52] VITALS: BP 128/68; PULSE 60; RESP 18; TEMP 36.6; O2SAT 96
[2025-01-26 09:58] VITALS: BP 138/73; PULSE 62
[2025-01-26] MEDS: Metoprolol(XL)Succ 50 MG Tablet PO (09:58)
[2025-01-26 11:52] VITALS: BP 164/79; PULSE 85; RESP 18; TEMP 36.9; O2SAT 94
--- NOTE | 2025-01-26 11:52 | PCM.DC.SUM ---
Providers Date of Admission: 01/25/25 Date of Discharge: 01/26/25 Primary Care Physician: [facility] Reason For Visit: RESPIRATORY DISTRESS SECONDARY TO ASTHMA EXACERBAT Diagnosis Discharge Diagnosis (1) Asthma exacerbation: Status: Acute Code(s): J45.901 - Unspecified asthma with (acute) exacerbation Plan #Acute exacerbation of asthma # Elevated troponin, no ACS # History of mitral and tricuspid valve replacements/permanent pacemaker #Paroxysmal Atrial Fibrillation #JOSÉ MIGUEL Medications at Discharge Home Medications albuterol sulfate 90 mcg/actuation aerosol inhaler 2 puff inhalation Q6H PRN PRN Wheezing/SOB 07/21/17 lisinopril 20 mg tablet 20 mg PO DAILY 05/23/18 tadalafil 5 mg tablet 5 mg PO DAILY 12/19/22 cholecalciferol (vitamin D3) 50 mcg (2,000 unit) capsule 50 mcg PO DAILY 10/27/23 eplerenone 25 mg tablet (Inspra) 12.5 mg (1/2 x 25 mg) PO DAILY #30 tabs 11/13/23 diclofenac sodium 1 % topical gel (Voltaren Arthritis Pain) 2 g topical ONCE PRN Arthritis Pain 02/14/24 empagliflozin 25 mg tablet 12.5 mg PO QAM 02/14/24 potassium gluconate 595 mg (99 mg) tablet 595 mg PO QDAY 02/19/24 metoprolol succinate 50 mg tablet,extended release 24 hr 50 mg PO QDAY #90 tabs 03/13/24 rivaroxaban 20 mg tablet 20 mg PO QDAY 09/18/24 furosemide 20 mg tablet 20 mg PO QAM 01/13/25 ipratropium 20 mcg-albuterol 100 mcg/actuation mist for inhalation (Combivent Respimat) 1 puff inhalation Q6H 01/25/25 pregabalin 75 mg capsule (Lyrica) 75 mg PO BID 01/25/25 prednisone 20 mg tablet See Taper PO BREAKFAST #32 tabs 01/26/25 Hospital Course Summary of Care Provided Minutes Spent on Discharge: 23 Hospital Course: Per HPI: JANELLE QUIÑONES, is a 69-year-old male with a history of asthma, A-fib on Xarelto, pacemaker placement, mitral and tricuspid valve replacement, Maze procedure, hypertension, JOSÉ MIGUEL who presented to [facility] ED 01/25/25 for several days of increased shortness of breath and nonproductive cough. Denies any leg swelling and is afebrile. No chest pain. In the ED temp 97.8, heart rate 59, blood pressure 155/69, respiratory rate initially 30 with pulse ox 96% on room air but decreased to 18, CBC with white count 6.5 and hemoglobin 13.1, BMP only notable for glucose of 101. Chest x-ray with cardiomegaly and mild vascular congestion, proBNP of 420, troponin of 52. Patient given steroids and nebs, he was also given a dose of Lasix, hospitalist contacted for admission due to his shortness of breath and respiratory distress. Patient evaluated at bedside. Symptoms have been present over the past 2 to 3 days and presented somewhat suddenly with wheezing and increased shortness of breath, has had a nonproductive cough since last night. No chest pain or fevers, no bowel or bladder changes. Little bit of nasal congestion now that nasal cannula is in place but no sore throat. also has a slight cough but no shortness of breath. He does feel little bit better after breathing treatments and steroids but still diffusely wheezing with shortness of breath. Patient denies any lower extremity swelling. INTERVAL HISTORY: Patient improved faster than anticipated and had significant improvement in work of breathing and shortness of breath this a.m. Still has some wheezing but significantly improved patient has been able to be up and ambulating in the room without respiratory distress, patient and comfortable with discharge home with [facility]. No chest pain or increase in leg swelling on day of discharge and no other new acute complaints. Physical Exam Narrative General: Alert, oriented, no apparent distress HEENT: Atraumatic, normocephalic Eyes: Anicteric, normal conjunctiva, extraocular movements grossly intact Neck: Supple Respiratory: Some expiratory wheezes in lower lobes significantly improved, not tachypneic, no increased work of breathing Cardiovascular: Regular rate GI: Soft, nontender, nondistended Extremities: No significant pitting Musculoskeletal: Moving all extremities Neuro: No overt focal neurological deficits Skin: No rashes appreciated Psych: Cooperative Weight / BMI Weight Weight: 143.1 kg Body Mass Index (BMI) 42.7 ABG / Lab / Microbiology Data 01/26/25 07:16 01/26/25 07:16 Laboratory: Laboratory Results - last 24 hr 01/25/25 13:10: Troponin T Hi Sens 2 Hr 50 H 01/25/25 15:14: Troponin T Hi Sens 4Hr 42 H 01/26/25 07:16: WBC 9.5, RBC 4.95, Hgb 13.9, Hct 41.7, MCV 84.2, MCH 28.1, MCHC 33.3, RDW Std Deviation 43.8, RDW Coeff of Mar 14.4, Plt Count 232, MPV 10.4, Immature Gran % (Auto) 0.400, Neut % (Auto) 83.8 H, Lymph % (Auto) 12.4 L, Polk % (Auto) 3.3, Eos % (Auto) 0.0, Baso % (Auto) 0.1, Absolute Neuts (auto) 8.0 H, Absolute Lymphs (auto) 1.18, Nucleated RBC % 0, Sodium 142, Potassium 4.8, Chloride 105, Carbon Dioxide 23.1, Anion Gap 13, BUN 27 H, Creatinine 0.96, Estim Creat Clear Calc 109.63, Est GFR (MDRD) Non-Af 86, BUN/Creatinine Ratio 28.5 H, Glucose 135 H, Calcium 9.7 Microbiology: Microbiology 01/25/25 16:49 Mucosa - Nasopharyngeal Respiratory Panel (PCR) - Final 01/25/25 11:20 Mucosa - Nose SARS-CoV-2, Influenza & RSV (PCR) - Final D/C Instructions DC O2, CPAP, BIPAP Needs Home O2 Discharge instructions: No Meaningful Use Info Meaningful Use Meaningful Use Diagnoses (Choose all that apply): None applicable Discharge Plan Admission Admit Date/Time: 01/25/25 13:23 Primary Reason for Your Visit: Shortness of breath Attending Provider: Juana Rodriguez Primary Care Provider: [facility],[place] Instructions Patient Instructions: Asthma Additional Instructions / Restrictions: DISCHARGE INSTRUCTIONS PLEASE READ *Please take this with you to your next doctors appointment* - Please continue to use your breathing treatments at home and follow-up closely with the [place] -You will be discharged on a prednisone taper: -60 mg daily x3 days -50mg daily x3 days -40mg daily x3 days -30mg daily x3 days -20mg daily x3 days -10mg daily x3 days -Please call your primary care provider's office upon discharge to schedule a hospital follow up within 1 week. -For any concerning signs or symptoms please call 911 or proceed to the nearest emergency department Discharge Orders/Prescriptions Prescriptions: New prednisone 20 mg Tablet See Taper PO BREAKFAST Qty: 32 0RF Taper: Prednisone Taper 60 mg WITH BREAKFAST for 3 Days and 0 Hour 50 mg WITH BREAKFAST for 3 Days and 0 Hour 40 mg WITH BREAKFAST for 3 Days and 0 Hour 30 mg WITH BREAKFAST for 3 Days and 0 Hour 20 mg WITH BREAKFAST for 3 Days and 0 Hour 10 mg WITH BREAKFAST for 3 Days and 0 Hour Continued lisinopril 20 mg tablet 20 mg PO DAILY cholecalciferol (vitamin D3) 50 mcg (2,000 unit) capsule 50 mcg PO DAILY empagliflozin 25 mg tablet 12.5 mg PO QAM diclofenac sodium [Voltaren Arthritis Pain] 1 % gel 2 g topical ONCE PRN (Reason: Arthritis Pain) Rx Instructions: apply to bilateral shoulders potassium gluconate 595 mg (99 mg) tablet 595 mg PO QDAY metoprolol succinate 50 mg tablet extended release 24 hr 50 mg PO QDAY Qty: 90 3RF albuterol sulfate 1 INHALER inhaler 2 puff INHALATION Q6H PRN PRN (Reason: Wheezing/SOB) Patient Comments: Wheezing/SOB tadalafil 5 mg tablet 5 mg PO DAILY Patient Comments: Take 1 tablet by mouth every morning. rivaroxaban 20 mg tablet 20 mg PO QDAY Rx Instructions: administer with evening meal pregabalin [Lyrica] 75 mg capsule 75 mg PO BID Combivent Respimat 20-100 mcg/actuation mist 1 puff inhalation Q6H eplerenone [Inspra] 25 mg tablet 12.5 mg PO DAILY Qty: 30 1RF furosemide 20 mg tablet 20 mg PO QAM Referrals [facility] [Primary Care Provider, None] - Within 1 Week Disposition Disposition (needs filled in before D/C Order can be placed): Home, Self Care Charges/Coding Visit Charges Inpatient E&M: 52530 Disch Hosp
== END 2025-01-26 12:30 | disposition home or self-care (01) | DRG 202 ==
LOC: ED 12:54 → PCU 14:27
PROVIDERS: Admitting Provider Internal Medicine; Emergency Provider Emergency Medicine; Visit Provider Internal Medicine
DX: J45.901 Unspecified asthma with (acute) exacerbation (principal); I50.32 Chronic diastolic (congestive) heart failure; G47.33 Obstructive sleep apnea (adult) (pediatric); I11.0 Hypertensive heart disease with heart failure; Z95.2 Presence of prosthetic heart valve; I48.0 Paroxysmal atrial fibrillation; Z79.01 Long term (current) use of anticoagulants; Z87.891 Personal history of nicotine dependence; Z95.0 Presence of cardiac pacemaker; Z99.89 Dependence on other enabling machines and devices; R79.89 Other specified abnormal findings of blood chemistry
CPT/HCPCS: 36415; 71046; 80048; 83880; 84484; 85025; 87631; 87633; 93005; 94640; 94668; 99285; A4216; J1938

== ENCOUNTER 2025-01-27 09:09 | Day surgery (SDC) | payer MEDICARE, BC, SELFPAY ==
[2025-01-24 08:36] VITALS: BMI 43.7
--- NOTE | 2025-01-27 12:27 | CL.IE_ITS ---
Patient: JANELLE QUIÑONES Study Date: 01/27/2025 Performing: Omer Wray MD : 1955 Age: 69 Gender: male PROCEDURES PERFORMED [id number]-([id number])BATTERY REMOVAL+REPLACEMENT PACER-DUAL LEAD INDICATIONS Sinoatrial node dysfunction/Sick sinus syndrome PROCEDURE DETAILS The patient was brought to the Catheterization Lab in the postabsorptive nonsedated state. Informed consent was obtained prior to the procedure. Local anesthetic was given subcutaneously to the left subclavian region with Lidocaine 2%. Incision was made to the left upper chest. PPM generator was removed. PPM generator was attached to the lead(s) and inserted into the pocket. PPM generator was then interrogated by the senior db2 systems programmer. Device pocket was irrigated with antibiotic. Subcutaneous closure was completed with 3-0 Vicryl. Skin closure was completed with 4-0 Vicryl. Instrument, sponge, and needle counts were noted to be normal. The patient tolerated the procedure well. Estimated Blood Loss: < 10 mls IMPLANTED / EX-PLANTED DEVICES IMPLANTED DEVICE(S): PPM Generator - Senior Health Physics Technician: [employer], Model # [id number] MRI L131 , Serial # [id number] DEVICE PARAMETERS DEVICE PARAMETERS: Mode- DDDR Lower rate- 60 Upper rate- 130 CONCLUSIONS / RECOMMENDATIONS Device Conclusions: Successful implantation of a dual chamber pacemaker battery change and replacement Device Recommendations: Follow up with Primary Care Physician PROCEDURE MEDICATIONS Fentanyl 50 mcg IV Versed 1 mg IV Fentanyl 50 mcg IV Versed 1 mg IV Versed 1 mg IV Versed 1 mg IV Versed 1 mg IV Oxygen: 2 L/min via nasal cannula Antibiotic given in appropriate timeframe. Ancef 3 Gm IV @ 01/27/2025 11:27:02 Signed By Omer Wray MD On 01/27/2025 12:26:34 Omer Wray MD
== END 2025-01-27 13:35 | disposition home or self-care (01) ==
PROVIDERS: Referring Provider Internal Medicine Cardiovascular Disease; Visit Provider Internal Medicine Cardiovascular Disease
DX: Z45.010 Encounter for checking and testing of cardiac pacemaker pulse generator [battery] (principal); I50.32 Chronic diastolic (congestive) heart failure; I11.0 Hypertensive heart disease with heart failure; I49.5 Sick sinus syndrome; I48.0 Paroxysmal atrial fibrillation; J45.909 Unspecified asthma, uncomplicated; Z87.891 Personal history of nicotine dependence; E66.9 Obesity, unspecified; Z95.2 Presence of prosthetic heart valve
CPT/HCPCS: 33228; 99152; 99153

== ENCOUNTER 2025-04-20 11:23 | Inpatient (IN) | payer OTHER, SELFPAY ==
[2025-04-20] VITALS (15 sets, daily range): BP systolic 136–173; BP diastolic 62–105; PULSE 14–91; RESP 16–60; TEMP 36.3–37.5; O2SAT 87–98; BMI 43.3; BMI 41.7
--- NOTE | 2025-04-20 11:35 | EKG12_ITS ---
Test Reason : Blood Pressure : */* mmHG Vent. Rate : 60 BPM Atrial Rate : 60 BPM P-R Int : 172 ms QRS Dur : 176 ms QT Int : 476 ms P-R-T Axes : * 210 39 degrees QTcB Int : 476 ms AV dual-paced rhythm Abnormal ECG Confirmed by Williams Dennis ([id number]), senior editor FLORINDA MEJIA ([id number]) on 04/22/2025 6:14:12 AM Referred By: Confirmed By: Williams Dennis
--- NOTE | 2025-04-20 11:55 | RAD_ITS ---
PROCEDURE: CHEST 1 VIEW (PORTABLE) 04/20/2025 REASON FOR EXAM: COUGH TECHNIQUE: Frontal view of the chest. COMPARISON: Chest radiograph 01/25/2025 FINDINGS: No focal lung consolidation, pneumothorax, or pleural effusion. The cardiomediastinal silhouette is within normal limits. There is mild pulmonary congestion. The osseous structures are unremarkable. Left-sided dual lead permanent pacemaker. Left atrial clip. Median sternotomy wires. RAD/Chest 1 View (Portable) IMPRESSION: No acute cardiopulmonary pathology. Mild pulmonary congestion. Reading Location: [id number]
--- NOTE | 2025-04-20 11:56 | EDS_ITS ---
HPI History of Present Illness Chief Complaint: Shortness of Breath Informant: patient and spouse/S.O. Narrative Narrative: 70-year-old male presenting to the emergency room with a chief complaint of shortness of breath. Patient states that last into Monday he developed cough and fever. States the fever left but is left him with what he believes to be an asthma exacerbation noting wheezing continued cough and green mucus production. No diarrhea or significant rhinorrhea. No sore throat. states that she also was ill but has improved. He does have a known cardiac history with atrial fibrillation and congestive heart failure and cardiac ar rest. Patient is on Xarelto. He has tried home nebulizers without success at resolving his symptoms. He has not been on any steroids. [facility] Medical History History of pacemaker Wears hearing aid Wears glasses PTSD (post-traumatic stress disorder) Anxiety Arthritis Vertigo Former smoker CPAP (continuous positive airway pressure) dependence History of pain when walking History of stress test Hypertension History of echocardiogram Cardiology follow-up encounter History of atrial fibrillation Acute posterior anal fissure Hemorrhoids, internal, with bleeding Paroxysmal atrial fibrillation Secondary pulmonary arterial hypertension Essential (primary) hypertension Chronic diastolic (congestive) heart failure Asthma Sick sinus syndrome Atypical atrial flutter Bradycardia Morbid obesity with BMI of 40.0-44.9, adult Home Medications ?Medication ?Instructions ?Recorded ?Last Taken ?Type albuterol sulfate 90 mcg/actuation 2 puff inhalation Q 6H PRN PRN 07/21/17 07/18/17 History aerosol inhaler Wheezing/SOB lisinopril 20 mg tablet 20 mg PO DAILY 05/23/1810/16 History tadalafil 5 mg tablet 5 mg PO DAILY 12/19/2211/18 History cholecalciferol (vitamin D3) 50 50 mcg PO DAILY Unknown History mcg (2,000 unit) capsule eplerenone 25 mg tablet (Inspra) 12.5 mg (1/2 x 25 mg) PO DAILY #30 11/13/23 Unknown Rx tabs diclofenac sodium 1 % topical gel 2 g topical ONCE PRN Arthritis Pain 02/14/24 Unknown History (Voltaren Arthritis Pain) empagliflozin 25 mg tablet 12.5 mg PO QAM 02/14/24 Unk nown History potassium gluconate 595 mg (99 mg) 595 mg PO QDAY 01/23 12/15 Unknown History tablet metoprolol succinate 50 mg 50 mg PO QDAY #90 tabs 02/2301/27/25 Rx tablet,extended release 24 hr rivaroxaban 20 mg tablet 20 mg PO QDAY 09/18/2401/25 History furosemide 20 mg tablet 20 mg PO QAM 01/13/25 Unknow n History ipratropium 20 mcg-albuterol 100 1 puff inhalation Q6H 01/25/25 Unknown History mcg/actuation mist for inhalation (Combivent Respimat) pregabalin 75 mg capsule (Lyrica) 75 mg PO BID 5 Unknown History prednisone 20 mg tablet See Taper PO BREAKFAST #32 t abs 01/26/25 Unknown Rx amoxicillin 500 mg capsule 500 mg PO ONCE #4 caps 10/16 Unknown Rx Allergy/AdvReac Type Severity Reaction Status Date / Time Environmental Allergies: Allergy wheezing, Verified 04/20/25 11:24 Uncoded (hay fever) cough Family History Mother Diabetes Hypertension Father Cancer prostate Other CVA (cerebral vascular accident) Surgical History History of open heart surgery S/P hernia repair S/P total knee replacement (08/08/23) History of umbilical hernia repair Hx of laparoscopy Status post bilateral hernia repair History of colonoscopy (11/25/19) History of hemorrhoidectomy History of left heart catheterization (07/21/17) Presence of permanent cardiac pacemaker (12/01/17) History of cardioversion (06/11/18) History of cardiac radiofrequency ablation (08/24/18) Social History household members: spouse Smoking Status: Former smoker how long ago did patient quit smokin alcohol intake: current alcohol intake frequency: holidays/special occasions only substance use type: does not use caffeine: Yes Type: carbonated beverages Number of servings: 5 and coffee ROS ROS ED Constitutional Constitutional ED: Reports chills and fever(s); Denies weight loss Eyes Eyes: Denies change in vision or diplopia ENT ENT ED: Denies ear pain, rhinorrhea or sore throat Cardiovascular Cardiovascular: Denies chest pain, orthopnea, palpitations or racing heartbeat Respiratory/Chest Respiratory/Chest: Reports cough, dyspnea, dyspnea on exertion and sputum; Denies orthopnea Gastrointestinal Gastrointestinal: Denies abdominal pain, diarrhea, nausea or vomiting Genitourinary Genitourinary ED: Denies dysuria, hematuria or urinary frequency Musculoskeletal Musculoskeletal: Denies arthralgias or myalgias Integumentary Denies abscess or rash Neurologic Neurologic: Denies headache(s) or weakness Psychiatric Psychiatric: Denies anxiety, depression, suicidal ideation or suicidal thoughts Endocrine Endocrinology: Denies polydipsia, polyphagia or polyuria Allergic/Immunologic Allergic/Immunologic ED: Denies mouth swelling, tongue swelling or urticaria EXAM Physical Exam Const Vital Signs: 04/20/25 11:24 04/20/25 11:45 04/20/25 11:45 Temperature 97.4 F L 98.2 F Temperature Source Oral Oral Pulse Rate 91 14 L Respiratory Rate 26 H 60 H Respiratory Effort Labored Accessory Muscle Use Respiratory Depth Deep Respiratory Pattern Normal Blood Pressure 149/83 H 137/68 H Blood Pressure Mean 105 91 Pulse Ox 94 95 Oxygen Delivery Method Room Air Room Air Room Air Positive well nourished, well developed and obese General Appearance ED: well developed Nutritional Appearance: obese HEENT Reports normocephalic, head/scalp atraumatic and moist mucous membranes Eyes PERRL and EOMs intact bilaterally Neck no lymphadenopathy, supple and no JVD Resp Resp Narrative: Patient with conversational dyspnea. He has audible wheezing. There is inspiratory and expiratory wheezing on auscultation as well as bilateral rhonchi Auscultation: rhonchi lower bilaterally and wheezes expiratory wheezes and inspiratory wheezes Cardio regular rate, regular rhythm and no murmurs GI normal to inspection, nondistended, normoactive bowel sounds and non-tender Palpation: soft Back/Spine no CVA tenderness and normal ROM Extremity normal to inspection General Extremety ED: Negative for edema General Extremity: Negative for edema Neuro oriented x3 and CN's II-XII intact bilaterally Sensorium / Orientation: alert Motor Exam: strength 5/5 throughout Psych mental status grossly normal Mood & Affect: Negative for depressed or tearful Skin no rashes or lesions noted and no wounds MDM MDM History & Record Review Discussion w/independent historian: Patient and Significant other Additional record(s) reviewed:: Prior ED visit and Prior labs Lab Data Attestation: I reviewed the patient's lab results. EKG Initial EKG: Attestation: I personally reviewed and interpreted this EKG as follows: Comments: AV dual paced rhythm at a rate of 60 bpm. Discharge Plan Triage Chief Complaint: Shortness of Breath ED Provider: José Rivas Dx/Rx/DC Orders Prescriptions: No Action lisinopril 20 mg tablet 20 mg PO DAILY cholecalciferol (vitamin D3) 50 mcg (2,000 unit) capsule 50 mcg PO DAILY empagliflozin 25 mg tablet 12.5 mg PO QAM diclofenac sodium [Voltaren Arthritis Pain] 1 % gel 2 g topical ONCE PRN (Reason: Arthritis Pain) Rx Instructions: apply to bilateral shoulders potassium gluconate 595 mg (99 mg) tablet 595 mg PO QDAY metoprolol succinate 50 mg tablet extended release 24 hr 50 mg PO QDAY Qty: 90 3RF albuterol sulfate 1 INHALER inhaler 2 puff INHALATION Q6H PRN PRN (Reason: Wheezing/SOB) Patient Comments: Wheezing/SOB tadalafil 5 mg tablet 5 mg PO DAILY Patient Comments: Take 1 tablet by mouth every morning. rivaroxaban 20 mg tablet 20 mg PO QDAY Rx Instructions: administer with evening meal pregabalin [Lyrica] 75 mg capsule 75 mg PO BID Combivent Respimat 20-100 mcg/actuation mist 1 puff inhalation Q6H prednisone 20 mg Tablet See Taper PO BREAKFAST Qty: 32 0RF Taper: Prednisone Taper 60 mg WITH BREAKFAST for 3 Days and 0 Hour 50 mg WITH BREAKFAST for 3 Days and 0 Hour 40 mg WITH BREAKFAST for 3 Days and 0 Hour 30 mg WITH BREAKFAST for 3 Days and 0 Hour 20 mg WITH BREAKFAST for 3 Days and 0 Hour 10 mg WITH BREAKFAST for 3 Days and 0 Hour eplerenone [Inspra] 25 mg tablet 12.5 mg PO DAILY Qty: 30 1RF furosemide 20 mg tablet 20 mg PO QAM amoxicillin 500 mg capsule 500 mg PO ONCE Qty: 4 0RF Rx Instructions: Take 4 tablets 1 hour prior to dental procedure. Print Language: Tamazight
--- NOTE | 2025-04-20 11:56 | ED.VIS.DYS ---
HPI History of Present Illness Chief Complaint: Shortness of Breath Informant: patient and spouse/S.O. Narrative Narrative: 70-year-old male presenting to the emergency room with a chief complaint of shortness of breath. Patient states that last into Monday he developed cough and fever. States the fever left but is left him with what he believes to be an asthma exacerbation noting wheezing continued cough and green mucus production. No diarrhea or significant rhinorrhea. No sore throat. states that she also was ill but has improved. He does have a known cardiac history with atrial fibrillation and congestive heart failure and cardiac arrest. Patient is on Xarelto. He has tried home nebulizers without success at resolving his symptoms. He has not been on any steroids. [facility] Medical History History of pacemaker Wears hearing aid Wears glasses PTSD (post-traumatic stress disorder) Anxiety Arthritis Vertigo Former smoker CPAP (continuous positive airway pressure) dependence History of pain when walking History of stress test Hypertension History of echocardiogram Cardiology follow-up encounter History of atrial fibrillation Acute posterior anal fissure Hemorrhoids, internal, with bleeding Paroxysmal atrial fibrillation Secondary pulmonary arterial hypertension Essential (primary) hypertension Chronic diastolic (congestive) heart failure Asthma Sick sinus syndrome Atypical atrial flutter Bradycardia Morbid obesity with BMI of 40.0-44.9, adult Home Medications ?Medication ?Instructions ?Recorded ?Last Taken ?Type albuterol sulfate 90 mcg/actuation 2 puff inhalation Q6H PRN PRN 07/21/17 07/18/17 History aerosol inhaler Wheezing/SOB lisinopril 20 mg tablet 20 mg PO DAILY 05/23/18 01/27/25 History tadalafil 5 mg tablet 5 mg PO DAILY 12/19/22 11/19/23 History cholecalciferol (vitamin D3) 50 50 mcg PO DAILY 10/27/23 Unknown History mcg (2,000 unit) capsule eplerenone 25 mg tablet (Inspra) 12.5 mg (1/2 x 25 mg) PO DAILY #30 11/13/23 Unknown Rx tabs diclofenac sodium 1 % topical gel 2 g topical ONCE PRN Arthritis Pain 02/14/24 Unknown History (Voltaren Arthritis Pain) empagliflozin 25 mg tablet 12.5 mg PO QAM 02/14/24 Unknown History potassium gluconate 595 mg (99 mg) 595 mg PO QDAY 02/19/24 Unknown History tablet metoprolol succinate 50 mg 50 mg PO QDAY #90 tabs 03/13/24 01/27/25 Rx tablet,extended release 24 hr rivaroxaban 20 mg tablet 20 mg PO QDAY 09/18/24 01/25/25 History furosemide 20 mg tablet 20 mg PO QAM 01/13/25 Unknown History ipratropium 20 mcg-albuterol 100 1 puff inhalation Q6H 01/25/25 Unknown History mcg/actuation mist for inhalation (Combivent Respimat) pregabalin 75 mg capsule (Lyrica) 75 mg PO BID 01/25/25 Unknown History prednisone 20 mg tablet See Taper PO BREAKFAST #32 tabs 01/26/25 Unknown Rx amoxicillin 500 mg capsule 500 mg PO ONCE #4 caps 01/27/25 Unknown Rx Allergy/AdvReac Type Severity Reaction Status Date / Time Environmental Allergies: Allergy wheezing, Verified 04/20/25 11:24 Uncoded (hay fever) cough Family History Mother Diabetes Hypertension Father Cancer prostate Other CVA (cerebral vascular accident) Surgical History History of open heart surgery S/P hernia repair S/P total knee replacement (08/08/23) History of umbilical hernia repair Hx of laparoscopy Status post bilateral hernia repair History of colonoscopy (11/25/19) History of hemorrhoidectomy History of left heart catheterization (07/21/17) Presence of permanent cardiac pacemaker (12/01/17) History of cardioversion (06/11/18) History of cardiac radiofrequency ablation (08/24/18) Social History household members: spouse Smoking Status: Former smoker how long ago did patient quit smokin alcohol intake: current alcohol intake frequency: holidays/special occasions only substance use type: does not use caffeine: Yes Type: carbonated beverages Number of servings: 5 and coffee ROS ROS ED Constitutional Constitutional ED: Reports chills and fever(s); Denies weight loss Eyes Eyes: Denies change in vision or diplopia ENT ENT ED: Denies ear pain, rhinorrhea or sore throat Cardiovascular Cardiovascular: Denies chest pain, orthopnea, palpitations or racing heartbeat Respiratory/Chest Respiratory/Chest: Reports cough, dyspnea, dyspnea on exertion and sputum; Denies orthopnea Gastrointestinal Gastrointestinal: Denies abdominal pain, diarrhea, nausea or vomiting Genitourinary Genitourinary ED: Denies dysuria, hematuria or urinary frequency Musculoskeletal Musculoskeletal: Denies arthralgias or myalgias Integumentary Denies abscess or rash Neurologic Neurologic: Denies headache(s) or weakness Psychiatric Psychiatric: Denies anxiety, depression, suicidal ideation or suicidal thoughts Endocrine Endocrinology: Denies polydipsia, polyphagia or polyuria Allergic/Immunologic Allergic/Immunologic ED: Denies mouth swelling, tongue swelling or urticaria EXAM Physical Exam Const Vital Signs: 04/20/25 11:24 04/20/25 11:45 04/20/25 11:45 Temperature 97.4 F L 98.2 F Temperature Source Oral Oral Pulse Rate 91 14 L Respiratory Rate 26 H 60 H Respiratory Effort Labored Accessory Muscle Use Respiratory Depth Deep Respiratory Pattern Normal Blood Pressure 149/83 H 137/68 H Blood Pressure Mean 105 91 Pulse Ox 94 95 Oxygen Delivery Method Room Air Room Air Room Air Oxygen Flow Rate (L/min) 04/20/25 11:55 04/20/25 12:11 04/20/25 12:22 Temperature 98.9 F Temperature Source Oral Pulse Rate 60 60 Respiratory Rate 22 H 19 H Respiratory Effort Respiratory Depth Respiratory Pattern Tachypnea Blood Pressure 136/75 H Blood Pressure Mean 95 Pulse Ox 93 Oxygen Delivery Method Room Air Room Air Oxygen Flow Rate (L/min) 04/20/25 12:36 04/20/25 12:36 04/20/25 13:00 Temperature 98.9 F Temperature Source Oral Pulse Rate 60 60 62 Respiratory Rate 22 H 24 H 24 H Respiratory Effort Respiratory Depth Respiratory Pattern Blood Pressure 173/72 H Blood Pressure Mean 105 Pulse Ox 87 92 98 Oxygen Delivery Method Room Air Nasal Cannula Room Air Oxygen Flow Rate (L/min) 2 04/20/25 14:00 04/20/25 14:54 Temperature 98.6 F Temperature Source Oral Pulse Rate 60 60 Respiratory Rate 19 H 16 Respiratory Effort Respiratory Depth Respiratory Pattern Normal Blood Pressure 140/105 H Blood Pressure Mean 116 Pulse Ox 94 Oxygen Delivery Method Room Air Oxygen Flow Rate (L/min) Positive well nourished, well developed and obese General Appearance ED: well developed Nutritional Appearance: obese HEENT Reports normocephalic, head/scalp atraumatic and moist mucous membranes Eyes PERRL and EOMs intact bilaterally Neck no lymphadenopathy, supple and no JVD Resp Resp Narrative: Patient with conversational dyspnea. He has audible wheezing. There is inspiratory and expiratory wheezing on auscultation as well as bilateral rhonchi Auscultation: rhonchi lower bilaterally and wheezes expiratory wheezes and inspiratory wheezes Cardio regular rate, regular rhythm and no murmurs GI normal to inspection, nondistended, normoactive bowel sounds and non-tender Palpation: soft Back/Spine no CVA tenderness and normal ROM Extremity normal to inspection General Extremety ED: Negative for edema General Extremity: Negative for edema Neuro oriented x3 and CN's II-XII intact bilaterally Sensorium / Orientation: alert Motor Exam: strength 5/5 throughout Psych mental status grossly normal Mood & Affect: Negative for depressed or tearful Skin no rashes or lesions noted and no wounds MDM MDM MDM Narrative Medical decision making narrative: Differential diagnosis includes but not limited to viral syndrome congestive heart failure acute coronary syndrome asthma exacerbation pneumonia bronchitis pleural effusion hypoxia Patient received breathing treatments and Solu-Medrol. My independent interpretation of the chest x-ray is no acute process. White count is 4.6 hemoglobin 13.6 platelet count of 170 BMP within normal limits. Troponin 61 and delta 51 BNP is 393. After the initial breathing treatments patient pulse ox dropped to 87% with good waveform. He has improved aeration and inspiratory wheezing has resolved but expiratory wheezing remains. He was observed while we waited for the lab results. He ambulated as he was no longer hypoxic on room air but dropped into the high 80s with ambulation with increased wheezing. I spoke with the patient and his they are amendable to staying in the hospital. History & Record Review Discussion w/independent historian: Patient and Significant other Additional record(s) reviewed:: Prior ED visit and Prior labs Lab Data Attestation: I reviewed the patient's lab results. Labs: Laboratory Results - last 24 hr 04/20/25 04/20/25 11:45 14:00 WBC 4.6 RBC 4.89 Hgb 13.6 Hct 43.4 MCV 88.8 MCH 27.8 MCHC 31.3 L RDW Std Deviation 45.5 H RDW Coeff of Mar 14.1 Plt Count 170 MPV 11.2 Immature Gran % (Auto) 0.400 Neut % (Auto) 57.7 Lymph % (Auto) 25.1 [place] % (Auto) 14.6 H Eos % (Auto) 1.3 Baso % (Auto) 0.9 Absolute Neuts (auto) 2.7 Absolute Lymphs (auto) 1.15 Nucleated RBC % 0 Sodium 139 Potassium 4.2 Chloride 104 Carbon Dioxide 25.2 Anion Gap 11 BUN 18 Creatinine 1.07 Estim Creat Clear Calc 97.72 Est GFR (MDRD) Non-Af 76 BUN/Creatinine Ratio 16.7 Glucose 80 Calcium 9.1 Troponin T High Sens 61 H* D Troponin T Hi Sens 2 Hr 51 H NT pro BNP II 393 Radiography Diagnostic Testing: Clinical Impression(s) from Imaging Studies Chest X-Ray 04/20/25 11:55 IMPRESSION: No acute cardiopulmonary pathology. Mild pulmonary congestion. Reading Location: [facility] EKG Initial EKG: Attestation: I personally reviewed and interpreted this EKG as follows: Comments: AV dual paced rhythm at a rate of 60 bpm. Management Discussion w/another healthcare provider: Hospitalist (Dr. Crabtree) Discharge Plan Dx/Rx/DC Orders Clinical Impression: Acute asthma exacerbation, Hypoxia, Presence of permanent cardiac pacemaker, FCI current use of anticoagulant Disposition Disposition: Acute Care Hospital [facility]
--- OUTSIDE RECORDS SUMMARY | 2025-04-20 12:06 | XMS RPT_ITS | CCD ---
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 Asad Mcdonough Emergency Provider [phone] [place] Primary Care Provider Dr. Jerardo Thompson Attending Provider Dr. Jerardo Millan Other Provider Dr. Jerardo Millan Admit Provider Dr. Juana Rodriguez Other Provider KEVEN Neri Attending Provider [phone] Dr. Juana Rodriguez Attending Provider Dr. Asad Mcdonough Emergency Provider [place] Primary Care Provider Dr. Jerardo Thompson Attending Provider Dr. Jerardo Millan Other Provider Dr. Jerardo Millan Admit Provider Dr. Juana Rodriguez Other Provider KEVEN Neri Attending Provider Dr. Juana Rodriguez Attending Provider Dr. Jerardo Millan Referring Provider [facility] Doctor, Out of Primary Care Provider Kyung amos [facility] Doctor, Out of Referring Provider Unavailab Dr. Sherif Shabazz Other Provider PROVIDER, UNKNOWN Attending Unavailable PROVIDER, UNKNOWN Admitting Unavailable CHELSIE NIEVES Referring Unavailable Phillip Diamond MD Unavailable Omer Wray MD Unavailable Omer Wray MD Primary Care Provider Moiz Koenig MD Unavailable Unavailable [facility] Wray MD Attending Provider Dr. Omer Wray MD Referring Provider Dr. Qamar Rosario DO Attending Provider [phone] Qamar Rosario DO Emergency Provider [facility] [place] Referring Provider Unavailable Roof SAP PPM CONSULTANT-C, Evelyn Hernandez Attending Provider [employer]of [employer] PPM CONSULTANT-C, Evelyn Hernandez Referring Provider Dr. Omer Wray MD Attending Provider Dr. Omer Wray MD Referring Provider Denny Cifuentes MD Unavailable DENNY CIFUENTES Attending Unavailable OMER WRAY Primary Care Unavailable Broderick Bundy MD Unavailable Luis Mayorga MD Unavailable Ann Lam Unavailable [place] Primary Care Physician Unavailab Dr. Omer Meadows MD Attending Physician [employer] SAP PPM CONSULTANT-CEvelyn Attending Physician [employer]of [employer] PPM CONSULTANT-C, Evelyn Hernandez Referring [place] [facility] [place] [facility] Physician Unavailab roxann Wray MD, Dr. Tello Referring [place] Referring Provider Unavailable Jolene Larkin Attending Physician Unavailable Julius UGALDE, Dr. Andrade Emergency Department Physici an Michael UGALDE, Dr. Arias Admitting Physician Michael UGALDE, Dr. Arias Attending Physician Michael UGALDE, Dr. Arias Nurse Practitioner [phone] Phillip DIAMOND Referring Unavailable NILS, OMER S Primary Care Unavailable NILS, OMER S Primary Care Unavailable NILS, OMER S Primary Care Unavailable CYRUS GRIMM Referring Unavailable LIZ MADSEN Attending Unavailable Phillip DIAMOND Referring Unavailable NILS, OMER S Primary Care Unavailable Phillip DIAMOND Referring Unavailable NILS, OMER S Primary Care Unavailable Juana Rodriguez Admitting Unavailable Juana Rodriguez [facility] [place] [facility] [place] [facility] Unavailable Nils, Omer Referring Unavailable Nils, Omer Attending [facility] [place] [facility] Unavailable Nils, Elberta Referring Unavailable Nils, Omer Attending [facility] [place] [facility] Unavailable [employer] SAP PPM CONSULTANT, Evelyn H Attending Unavailable [employer] SAP PPM CONSULTANT, Evelyn H Referring [facility]available [facility] [place] [facility] Unavailable Nils, Omer Referring Unavailable Nils, Elberta Attending [facility] Unavailable Nils, Elberta Referring Unavailable Nils, Omer Attending Unavailable [employer] PPM CONSULTANT, Evelyn H Attending [facility] Referring [facility] Unavailable Nils, Elberta Attending [facility] Unavailable Juana Rodriguez Attending [facility] Unavailable Nils, Omer Referring Unavailable Nils, Elberta Attending Unavailable [employer] SAP PPM CONSULTANT, Evelyn H Referring Unavailable [employer]of SAP PPM CONSULTANT, Evelyn H Attending [facility] Unavailable [employer] PPM CONSULTANT, Evelyn H Referring Unavailable [employer] SAP PPM CONSULTANT, Evelyn H Attending [facility] Unavailable Nils, Elberta Referring [facility] Unavailable Nils, Elberta Attending [facility] Referring Unavailable [employer]of SAP PPM CONSULTANT, Evelyn H Attending [facility] Unavailable Nils, Omer Attending Unavailable Nils, Elberta Referring [facility] Unavailable Nils, Elberta Attending [facility] Unavailable [employer]of SAP PPM CONSULTANT, Evelyn H Attending [facility] Referring Unavailable [employer]of SAP PPM CONSULTANT, Evelyn H Attending [facility] Referring Unavailable Nils, Elberta Attending Unavailable Nils, Elberta Referring [facility] Unavailable Le, Qamar Attending [facility] Unavailable Nils, Elberta Attending Unavailable Nils, Elberta Referring Unavailable [employer]of SAP PPM CONSULTANT, Evelyn H Referring Unavailable Roof SAP PPM CONSULTANT, Evelyn H Attending [facility] Unavailable Juana Rodriguez Admitting Unavailable Juana Rodriguez Consulting [facility] Unavailable Nils, Elberta Referring Unavailable Nils, Elberta Attending [facility] Unavailable Nils, Omer Attending [facility] Unavailable Nils, Elberta Attending [facility] Unavailable Jolene Larkin Attending [facility] Referring Unavailable Nils, Omer Referring Unavailable Nils, Omer Attending [facility] Unavailable Le, Qamar Attending [facility] Unavailable Nils, Elberta Referring Unavailable Nils, Elberta Attending [facility] Unavailable Nils, Elberta Referring Unavailable Nils, Omer Attending [facility] [place] [facility] Unavailable Nils , Dr. Tello Attending Physician Dr. Omer Wray MD Referring Provider [phone] [facility], [place] Primary Care Physician Unavailab [facility] Referring Provider Unavailable [facility] SAP PPM CONSULTANT-CEvelyn Attending Physician [phone] [facility], [place] Primary Care Physician Unavail Dr. Raymond Mendoza MD Emergency Department Physici an Dr. Juana Rodriguez MD Admitting Physician Dr. Juana Rodriguez MD Attending Physician Dr. Juana Rodriguez MD Nurse Practitioner [phone] Jolene Larkin Attending Physician Unavailable Allergies Allergy Classification Reported Allergen(s) Allergy Type Date of Onset Reaction(s) Facility (18 sources) hydroCHLOROthiazide; Translations: [HYDROCHLOROTHIAZIDE] Drug Allergy 01-13-2 022 Other: See Comments [facility] (18 sources) Pollen; Translations: [POLLEN EXTRACTS] Drug Allergy Itching [facility] (18 sources) Influenza Virus Vaccines; Translations: [INFLUENZA VIRUS VACCINES] Drug Allergy Other: See Comments [facility] (2 sources) hydroCHLOROthiazide Drug Allergy Other [facility] (2 sources) Influenza Vaccines Drug Allergy Other [facility] (2 sources) redtop grass pollen extract Drug Allergy Itching [facility] (2 sources) sildenafil Drug Allergy [facility] (1 source) Allergic rhinitis due to pollen Allergy to substance (disorder) [facility] (1 source) Environmental Allergies: Uncoded; Translations: [Environmental Allergies: Uncoded] Propensity to adverse reactions (disorder) [facility] Medications Current Medications Medication Drug Class(es) Dates Sig (Normalized) Sig (Original) albuterol 0.83 mg/ml inhalation solution (20 sources) beta2-Adrenergic Agonist Start: 10-30-2023 albuterol (PROVENTIL) [...] 90 Mcg/inh as needed ALBUTEROL SULFATE NEBU [id number] Jen Page take 2 puff(s) by in halation three times daily albuterol sulfate HFA 90 mcg/actuation aerosol inhaler Inhale 2 puff using inhaler three times a day active [facility] take 2 puff(s) by in halation every six hours as needed albuterol 108 (90 Base) MCG/ACT inhaler Inhale 2 puffs every 6 hours as needed. Active 120 actuat albuterol 0.1 mg/actuat / ipratropium bromide 0.02 mg/actuat inhalation spray (20 sources) Anticholinergic, beta2-Adrenergic Agonist Start: 01-25-2025 take 20-100 ug by inhalation every six hours Start: 12-12-2023 ipratropium 20 mcg-albuterol 100 mcg (COMBIVENT RESPIMAT) 20- 100 mcg/actuation inhaler Inhale as instructed every 4 hours as needed. 12/12/2023 Active amoxicillin 500 mg oral capsule (20 sources) Penicillin-class Antibacterial Start: 01-27-2025 take 4 tablets by mouth every hour Start: 01-27-2025 End: 01-27-2025 take 1 capsule by mouth once Amoxicillin 500 mg capsul e Discontinued 500 mg PO ONCE 4 0 January 26, 2025 11:00pm January 27, 2025 1:26pm Take 1 hour prior to dental procedure. Start: 01-13-2024 End: 01-25-2025 take 4 capsules by mouth once as needed Amoxicillin 500 mg capsule Discontinued 2000 mg PO ONCE as needed for . September 17, 2024 11:00pm January 25, 2025 12:54pm 28 actuat budesonide 0.16 mg/actuat / formoterol fumarate 0.0048 mg/actuat / glycopyrrolate 0.009 mg/actuat metered dose inhaler (1 source) Corticosteroid, beta2-Adrenergic Agonist take 2 puff(s) by inhalation twice daily Breztri Aerosphere 160 mcg-9mcg-4.8mcg/actuation HFA aerosol inhaler Inhale 2 puff using inhaler twice a day active Ana Rosa [facility] cholecalciferol 0.05 mg oral capsule (20 sources) Vitamin D Star t: 0709-10 24 take 1 capsule by mouth once daily [...] Active docusate sodium 50 mg / sennosides, residential 8.6 mg oral tablet (5 sources) Start: [...] Discontinued 10 mg PO DAILY 30 November 12, 2023 11:00pm February 14, 2024 8:17am Start: 11-01-2023 empagliflozin (JARDIANCE) 25 mg tablet Take 12.5 mg by mouth daily with breakfast. 11/01/2023 Active take 0.5 tablet by m outh once daily Jardiance 25 mg tablet 1/2 tablet by mouth once a day active Mary Jo Escobar [facility] eplerenone 25 mg oral tablet (20 sources) Aldosterone Antagonist Start: 11-13-2023 take 1 tablet by mouth once daily Start: 11-01-2023 eplerenone (IN SPRA) 25 mg tablet Take 12.5 mg by mouth once daily. 11/01/2023 Active take 0.5 tablet by m outh once daily eplerenone 25 mg tablet take 1/2 tablet by mouth once daily (Jardiance) active [facility] 12 hr fexofenadine [...] mg PO EVERY MORNING October 27, 2024 8:52am January 13, 2025 12:50pm Start: 05-15-2024 End: 09-18-2024 Furosemide 40 mg tablet Disc ontinued 20 mg PO daily May 15, 2024 10:34am September 18, 2024 10:59am Start: 03-01-2024 take 2 tablets by mo [...] 40 mg PO daily May 15, 2024 9:18am May 15, 2024 10:35am Start: 02-14-2024 End: 02-19-2024 take 2 tablets by mouth in the morning, then take 1 tablet by mouth in the evening Furosemide 40 mg tablet Discontinued 40 mg PO .COMPLEX 60 3 February 14, 2024 3:49pm February 19, 2024 3:33pm 40 mg orally; 80mg in AM and 40mg in PM Start: 02-14-2024 End: 02-14-2024 take 1 tablet by mouth twice daily Furosemide 40 mg tablet Discontinued 40 mg PO TWICE A DAY 60 3 February 14, 2024 9:09am February 14, 2024 3:52pm Start: 05-06-2021 End: 10-27-2024 take 1 tablet by mouth once daily in the morning Furosemide 20 mg tablet Discontinued 20 mg PO EVERY MORNING September 17, 2024 11:00pm October 27, 2024 8:53am Start: 05-24-2018 End: 03-24-2020 take 1 tablet by mouth once daily Furosemide (Lasix) 40 mg tablet Discontinued 40 mg PO DAILY 30 May 28, 2019 10:49am March 24, 2020 5:04pm lisinopril 5 mg oral tablet (20 sources) [...] mg PO DAILY 30 September 06, 2017 4:25pm May 23, 2018 2:34pm 24 hr metoprolol succinate 50 mg extended release oral tablet (20 sources) beta-Adrenergic Damian Start: 03-13-2024 take 1 tablet by mouth once daily Start: 03-01-2024 End: 03-13-2024 take 1 tablet by mouth twice daily Metoprolol Succinate 50 mg tablet extended release 24 hr Discontinued 50 mg PO TWICE A DAY 60 March 01, 2024 10:06am March 13, 2024 1:49pm Start: 10-23-2019 End: 03-01-2024 take 1 tablet by mouth once daily Metoprolol Succinate 50 mg tablet extended release 24 hr Discontinued 50 mg PO DAILY October 27, 2023 10:02am March 01, 2024 10:06am Start: 06-14-2019 End: 10-27-2023 take 1 tablet by mouth twice daily Metoprolol Succinate 50 mg tablet extended release 24 hr Discontinued 50 mg PO TWICE A DAY 180 June 14, 2021 2:06pm October 27, 2023 10:03am Start: 10-03-2018 End: 06-14-2019 take 1 tablet by mouth once daily Metoprolol Succinate 50 mg tablet extended release 24 hr Discontinued 50 mg PO DAILY 30 October 02, 2018 11:00pm June 14, 2019 4:35pm Start: 12-13-2017 End: 05-23-2018 take 1 tablet by mouth once daily Metoprolol Succinate 25 MG tablet extended release 24 hr Discontinued 25 mg PO DAILY December 12, 2017 11:00pm May 23, 2018 1:33pm Start: 08-02-2017 End: 12-05-2017 take 1 tablet by mouth once daily Metoprolol Succinate 25 mg tablet extended release 24 hr Discontinued 25 mg PO daily 90 3 September 05, 2017 1:43pm December 05, 2017 5:22pm Start: 07-20-2017 End: 07-20-2017 take 1 tablet by mouth twice daily Metoprolol Tartrate 25 mg tablet Discontinued 25 mg PO TWICE A DAY July 19, 2017 11:00pm July 20, 2017 3:08pm oxyCODONE hydrochloride 5 mg oral tablet (19 sources) Opioid Agonist Start: 01-29-2024 End: 02-05-2024 [...] 0 April 03, 2023 May 05, 2023 1:18pm Recurrent umbilical hernia Umbilical hernia without obstruction or gangrene Start: 12-20-2022 take 5 mg by mouth e very six hours as needed Oxycodone Active 5 MG PO EVERY 6 HOURS NEEDED 6 2 December 20, 2022 polyethylene glycol 3350 [id number] mg powder for oral solution (5 sources) [...] tablet Discontinued 99 mg PO DAILY July 20, 2017 11:00pm December 05, 2017 5:22pm Supplement predniSONE 20 mg oral tablet (20 sources) Start: 01-26-2025 Start: 08-13-2024 End: 09-18-2024 take 3 tablets by mouth once daily Prednisone 20 mg tablet Discontinued 60 mg PO DAILY 15 August 12, 2024 11:00pm September 18, 2024 11:00am Start: 04-18-2024 End: 05-15-2024 take 2 tablets by mouth once daily Prednisone 20 mg tablet Discontinued 40 mg PO DAILY 10 5 April 18, 2024 1:00pm May 15, 2024 9:19am Start: 05-02-2021 End: 12-19-2022 take 3 tablets by mouth once daily Prednisone 20 MG tablet Discontinued 60 mg PO DAILY May 02, 2021 12:00am December 19, 2022 1:28pm Start: 05-02-2021 End: 12-19-2022 take 60 mg by mouth once daily Prednisone Discontinued 60 MG PO DAILY May 02, 2021 12:00am December 19, 2022 1:28pm pregabalin 75 mg oral capsul e (9 sources) Start: 01-25-[address] [facility] twice daily Start: 07-08-2024 [facility] pregabalin (Lyrica) 75 MG capsule Take 75 mg by mouth 2 times daily. 07/08/2024 Active take 1 capsule by [facility] once daily pregabalin 75 mg capsule 1 capsule by mouth once a day active Mary Jo Escobar LPN [facility] tadalafil 10 mg oral tablet (20 sources) Phosphodiesterase 5 Inhibitor Start: 11-01-2024 End: [...] (1 source) take 1 tablet by thai once daily Vitamin D3 50 mcg (2,000 unit) tablet Take 1 tablet by mouth once a day active Ana Rosa Saba [facility] Completed/Discontinued Medications Medication Drug Class(es) Dates Sig (Normalized) Sig (Original) [id number] 97 ointment (15 sources) Start: 12-03-2019 End: 03-24-2020 [id number] 7 ointment Discontinued 0 .ROUTE .MEDSUPPLY 1 December 02, 2019 11:00pm March 24, 2020 4:15pm As directed Start: 12-03-2019 End: 03-24-2020 [id number] ointme nt Discontinued 0 .ROUTE .MEDSUPPLY 1 December 03, 2019 12:00am March 24, 2020 5:15pm As directed Start: 12-03-2019 End: 03-24-2020 [id number] ointme nt Discontinued 0 .ROUTE .MEDSUPPLY December 03, 2019 12:00am March 24, 2020 5:15pm As directed acetaminophen 325 mg oral capsule (20 sources) Start: 02-14-2024 End: 01-25-2025 take 1 capsule by mouth once as needed for pain Acetaminophen 325 mg capsule Discontinued 325 mg PO ONCE as needed for fever or pain February 13, 2024 11:00pm January 25, 2025 12:54pm Start: 01-29-2024 take 325-650 mg by m outh every four hours as needed acetaminophen (TYLENOL) 325 mg tablet Take 1-2 tablets by mouth every 4 hours as needed for pain. 01/29/2024 Active acetaminophen 325 mg / HYDROcodone bitartrate 5 mg oral tablet (20 sources) Opioid Agonist Start: 04-07-2021 End: 12-19-2022 Hydrocodone-Acetaminophen 5- 325 mg tablet Discontinued 1 {tbl} PO EVERY 6 HOURS NEEDED as needed for Pain 12 3 April 07, 2021 December 19, 2022 1:27pm Fracture of ankle Other fracture of unspecified [...] HOURS NEEDED as needed for Pain 12 0 September 01, 2016 11:00pm July 20, 2017 3:07pm Start: 09-02-2016 End: 07-20-2017 take 1 tablet by mouth every four hours as needed Hydrocodone-Acetaminophen Discontinued 1 - 2 TABLET PO EVERY 4 HOURS NEEDED September 01, 2016 11:00pm July 20, 2017 3:07pm acetaminophen 325 mg / oxyCODONE hydrochloride 5 mg oral tablet (18 sources) Opioid Agonist Start: 05-02-2021 End: 12-19-2022 Oxycodone-Acetaminophen 1 TABLET tablet Discontinued 1 {tbl} PO EVERY 6 HOURS NEEDED as needed for Pain 12 3 May 02, 2021 December 19, 2022 1:27pm Acute gout Acute renal insufficiency Gout, unspecified [...] mg PO DAILY 90 May 24, 2021 10:36am May 17, 2024 1:08pm amLODIPine 5 mg oral tablet (20 sources) Dihydropyridine Calcium Channel Damian Start: 05-06-2021 End: 02-14-2024 take 1 tablet by mouth once daily Amlodipine 5 mg tablet Discontinued 5 mg PO DAILY 30 May 06, 2021 12:00am February 14, 2024 8:16am aspirin 325 mg delayed release oral tablet (20 sources) Platelet Aggregation Inhibitor, Nonsteroidal Anti-inflammatory Drug Start: 02-19-2024 End: 05-15-2024 take 1 tablet by mouth once daily Aspirin 325 mg tablet,delayed release (DR/EC) Discontinued 325 mg PO daily February 18, 2024 11:00pm May 15, 2024 9:17am Start: 01-30-2024 take 1 tablet by thai th once daily aspirin 81 mg chewable tablet Take 1 tablet by mouth once daily. 01/30/2024 Active Start: 07-20-2017 End: 08-16-2017 take 1 tablet by mouth once daily Aspirin 325 mg tablet,delayed release (DR/EC) Discontinued 325 mg PO daily July 19, 2017 11:00pm August 16, 2017 3:26pm [facility] 120 actuat budesonide 0.16 mg/actuat / formoterol fumarate 0.0045 mg/actuat metered dose inhaler (20 sources) Corticosteroid, beta2-Adrenergic Agonist Start: 09-19-2019 End: 10-27-2023 Budesonide-Formoterol (Symbicort) 160-4.5 mcg/actuation HFA aerosol inhaler Discontinued 2 NMA INHALATION TWICE A DAY September 18, 2019 11:00pm October 27, 2023 10:03am Start: 09-19-2019 take 1 puff(s) by in halation twice daily Budesonide-Formoterol (Symbicort) 160-4.5 mcg/actuation HFA aerosol inhaler Active 2 PUFF INHALATION TWICE A DAY September 18, 2019 11:00pm Start: 07-21-2017 End: 09-19-2019 Symbicort 160-4.5 Mcg Inhale r Discontinued 2 NMA INHALATION TWICE A DAY as needed for Wheezing/SOB July 20, 2017 11:00pm September 19, 2019 2:43pm Start: 07-21-2017 End: 09-19-2019 Symbicort 160-4.5 Mcg [...] 2019 3:43pm cefdinir 300 mg oral capsule (15 sources) Cephalosporin Antibacterial Start: 08-13-2024 End: 09-18-2024 take 1 capsule by mouth every twelve hours Cefdinir 300 mg capsule Discontinued 300 mg PO Q12H 14 0 August 12, 2024 11:00pm September 18, 2024 10:59am cephalexin 500 mg oral capsule (18 sources) Cephalosporin Antibacterial Start: 09-02-2016 End: 07-20-2017 take 1 capsule by mouth every six hours Cephalexin 500 MG capsule Discontinued 500 mg PO EVERY 6 HOURS 40 0 September 01, 2016 11:00pm July 20, 2017 3:07pm dilTIAZem (3 sources) Calcium Channel Damian Start: [...] Provider) flecainide acetate 100 mg oral tablet (18 sources) Antiarrhythmic Start: 08-02-2017 End: 08-16-2017 take 1 tablet by mouth twice daily Flecainide 100 mg tablet Discontinued 100 mg PO TWICE A DAY 60 August 01, 2017 11:00pm August 16, 2017 3:26pm hydroCHLOROthiazide 25 mg oral tablet (20 sources) Thiazide Diuretic Start: 03-24-2020 End: 05-06-2021 take 1 tablet by mouth once daily Hydrochlorothiazide 25 mg tablet Discontinued 25 mg PO DAILY 90 March 16, 2021 3:28pm May 06, 2021 3:03pm hydrocortisone acetate 25 mg rectal suppository (18 sources) Corticosteroid Start: 12-03-2019 End: 12-19-2022 Hydrocortisone Acetate 25 mg suppository Discontinued 25 mg RC TWICE A DAY 24 December 02, 2019 11:00pm December 19, 2022 1:27pm ibuprofen (3 sources) Nonsteroidal Anti-inflammatory Drug IBUPROFEN CAPS prn IBUPROFEN CAPS [id number] Trey Duenas LORazepam 0.5 mg oral tablet (6 sources) Benzodiazepine Start: 07-12-2010 End: 11-30-2012 take 1-2 tablets by mouth once daily as needed ATIVAN 0.5 MG TABS 1-2 tablets by mouth daily as needed LORAZEPAM [id number] Jen Page mupirocin 0.02 mg/mg topical ointment [...] ALEVE 220 MG TABS PRN NAPROXEN SODIUM [id number] Omer Wray MD Aleve (diclofena c) 1 % topical gel Apply a small amount to affected area as needed for pain active Ana Rosa Saba [facility] QUEtiapine 50 mg oral tablet (6 sources) Atypical Antipsychotic End: 11-30-2012 SEROQUEL 50 MG TABS as needed QUETIAPINE FUMARATE [id number] Trey Duenas rivaroxaban 20 mg oral tablet (20 sources) Factor Xa Inhibitor Start: 08-16-2017 End: 09-18-2024 take 1 tablet by mouth once daily at dinner Rivaroxaban 20 mg tablet Discontinued 20 mg PO DAILY 30 August 17, 2020 1:50pm March 20, 2023 8:57am administer with evening meal selenium sulfide 25 [...] Provider) sotalol hydrochloride 120 mg oral tablet (18 sources) Antiarrhythmic Start: 05-23-2018 End: 06-14-2019 take 1 tablet by mouth every twelve hours Sotalol 120 mg tablet Discontinued 120 mg PO Q12H May 23, 2018 12:00am June 14, 2019 4:31pm terbinafine 250 mg oral tablet (3 sources) [...] Chronic Aortic; peripheral; and visceral artery aneurysms (18 sources) Femoral false aneurysm; 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] 06-11-2018 Chronic Comment on above: following an ablatio n at [facility] Asthma (20 sources) Unspecified asthma, uncomplicated; Translations: [Exacerbation of asthma] Onset: 03-07-2016 04-26-2024 Chronic Cardiac arrest and ventricular fibrillation (20 sources) Cardiac arrest; Translations: [Cardiac arrest, cause unspecified] Onset: 01-23-2024 Resolved: 05-27-2024 01-23-2024 Chronic Comment on above: 01/23/2024 Cardiac dysrhythmias (20 sources) Atrial fibrillation; Translations: [Atrial paroxysmal tachycardia] Onset: 07-12-2010 07-12-2010 Chronic Comment on above: RFA 2005, 2017, 2018 Coagulation and hemorrhagic disorders (6 sources) Thrombocytopenic disorder; Translations: [Thrombocytopenia, unspecified] Onset: 01-25-2024 01-25-2024 Chronic Complications of surgical procedures or medical care (8 sources) Cardiac insufficiency following cardiac surgery; Translations: [Postprocedural cardiac insufficiency following cardiac surgery] Onset: 01-23-2024 01-23-2024 Chronic Conduction disorders (20 sources) Cardiac pacemaker in situ; Translations: [Presence of cardiac pacemaker] Onset: 12-01-2017 11-25-2019 Chronic Congestive heart failure; nonhypertensive (20 sources) Chronic diastolic heart failure; Translations: [Chronic diastolic (congestive) heart failure] Onset: 01-29-2024 06-11-2018 Chronic Diseases of white blood cells (6 sources) Leukocytosis; Translations: [Elevated white blood cell count, unspecified] Onset: 01-25-2024 01-27-2024 Chronic Essential hypertension (20 sources) Essential hypertension; Translations: [Essential (primary) hypertension] Onset: 01-25-2024 06-11-2018 Chronic Fluid and electrolyte disorders (20 sources) Dehydration; Translations: [Dehydration] Onset: 01-25-2024 06-11-2018 Episodic Fracture of lower limb (18 sources) Fracture of ankle; Translations: [Other fracture of unspecified lower leg, initial encounter for closed fracture] 04-07-2021 Episodic Gout and other crystal arthropathies (18 sources) Acute gout; Translations: [Gout, unspecified] 05-10-2021 Chronic Heart valve disorders (20 sources) Mitral valve disorder; Translations: [Rheumatic mitral valve disease, unspecified] Onset: 01-19-2024 12-08-2023 Chronic Nonspecific chest pain (19 sources) Chest discomfort; Translations: [Other chest pain] Onset: 02-06-2024 06-11-2018 Episodic Osteoarthritis (3 sources) Post-traumatic osteoarthritis, right ankle and foot; Translations: [Traumatic arthropathy, ankle and foot] Onset: 06-09-2023 11-06-2024 Chronic Other aftercare (17 sources) History of repair of umbilical hernia; [...] plans to continue this endeavor. 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] Onset: 02-04-2025 Episodic Other circulatory disease (7 sources) Disorder of artery; Translations: [Disorder of arteries and arterioles, unspecified] 12-08-2023 Chronic Other circulatory disease (20 sources) Presence of other cardiac implants and grafts; Translations: [Presence of left atrial appendage closure device] Onset: 02-12-2025 02-14-2024 Chronic Comment on above: 01/23/2024 Other circulatory disease (2 sources) Personal history of other diseases of the circulatory system; Translations: [S/P Maze operation for atrial fibrillation] Onset: 02-06-2024 Episodic Other connective tissue disease (1 source) Presence of left artificial knee joint; Translations: [Knee joint replacement] Onset: 08-30-2023 11-06-2024 Chronic Other diseases of kidney and ureters (18 sources) Acute renal insufficiency; Translations: [Disorder of kidney and ureter, unspecified] 05-10-2021 Episodic Other lower respiratory disease (11 sources) Dyspnea; Translations: [Shortness of breath] Onset: 07-12-2010 07-12-2010 Episodic Other lower respiratory disease (20 sources) Dyspnea on exertion; Translations: [Other forms of dyspnea] Onset: 01-19-2024 01-19-2024 Episodic Other lower respiratory disease (1 source) Shortness of breath; Translations: [Shortness of breath] Onset: 02-03-2025 Episodic Other male genital disorders (4 sources) Male erectile dysfunction, unspecified; Translations: [Impotence of organic origin] Onset: 11-10-2021 11-01-2024 Chronic Other nervous system disorders (1 source) Neuropathy; Translations: [Polyneuropathy, unspecified] Onset: 11-06-2024 11-06-2024 Chronic Other non-traumatic joint disorders (1 source) Instability of joint of right ankle; Translations: [Other instability, right ankle] Onset: 11-06-2024 11-06-2024 Episodic Other nutritional; endocrine; and metabolic disorders (8 sources) Severe obesity; Translations: [Class 3 severe obesity due to excess calories with body mass index (BMI) of 40.0 to 44.9 in adult] Onset: 01-23-2024 01-23-2024 Chronic Other upper respiratory infections (15 sources) Upper respiratory infection; Translations: [Acute upper respiratory infection, unspecified] 04-26-2024 Episodic Pneumonia (except that caused by tuberculosis or sexually transmitted disease) (15 sources) Pneumonia; Translations: [Pneumonia, unspecified organism] 08-21-2024 Episodic Pulmonary heart disease (18 sources) Pulmonary arterial hypertension; Translations: [Secondary pulmonary arterial hypertension] 11-25-2019 Chronic Residual codes; unclassified (17 sources) History of hernia repair; Translations: [Other specified postprocedural states] 01-03-2023 Episodic Residual codes; unclassified (20 sources) History of repair of mitral valve; Translations: [Other specified postprocedural states] 02-05-2024 Episodic Comment on above: 01/23/24 Residual codes; unclassified (20 sources) History of tricuspid valve repair; Translations: [Other specified postprocedural states] 02-05-2024 Episodic Comment on above: 01/23/2024 Residual codes; unclassified (20 sources) History of maze procedure for atrial fibrillation; Translations: [Other specified postprocedural states] 02-05-2024 Episodic Comment on above: 01/23/2024 Residual codes; unclassified (4 sources) Other specified postprocedural states; Translations: [S/P MVR (mitral valve repair)] Onset: 02-06-2024 Episodic Respiratory failure; insufficiency; arrest (adult) (8 sources) Ventilator finding; Translations: [Dependence on respirator [...] cause] Onset: 06-01-2006 11-02-2023 Episodic Cardiac dysrhythmias (20 sources) Palpitations; Translations: [Bradycardia] Onset: 07-12-2010 07-12-2010 Episodic Crushing injury or [...] initial encounter] Onset: 09-07-2016 09-26-2016 Episodic Other aftercare (7 sources) Encounter for follow-up examination after completed treatment for conditions other than malignant neoplasm; Translations: [Follow-up examination, following other surgery] Onset: 02-06-2024 01-03-2023 Episodic Other inflammatory condition of skin (19 sources) Other specified erythematous conditions; Translations: [Other specified erythematous conditions] Onset: 06-01-2006 11-02-2023 Episodic Other lower respiratory disease (2 sources) Dyspnea, unspecified; Translations: [Dyspnea, unspecified] Onset: 07-10-2023 Episodic Other lower respiratory disease (2 sources) Other respiratory abnormalities 07-10-2023 Episodic Other lower respiratory disease (1 source) Other forms of dyspnea; Translations: [Other forms of dyspnea] Onset: 09-23-2024 Episodic Other nervous system disorders (8 sources) [...] Test Name Value Interpretation Reference Range Facility Pacemaker Checkon 02-11-2025 Pacemaker Check [facility] [address] [place] [address] Pacemaker Check Date of Service: 02/11/25 1538 MR#: [id number] Acct: [id number] Name: TRE QUIÑONES Rep #: [id number] : 1955 From: Jolene Larkin Age/Sex: 70/M Location: [facility] Status: Signed Billing Codes PM Device Codes: 80687 PM Dev Prog Eval, Dual Assessment and Plan Assessment and Plan (1) Pacemaker: Status: Acute (2) Cardiac arrest with successful resuscitation: Status: Acute Comment: 01/23/2024 (3) S/P mitral valve repair: Status: Acute Comment: 01/23/24 (4) S/P tricuspid valve repair: Status: Chronic Comment: 01/23/2024 (5) S/P Maze operation for atrial fibrillation: Status: Acute Comment: 01/23/2024 (6) Presence of left atrial appendage closure device: Status: Acute Comment: 01/23/2024 02/11/25 1539 Date Jolene Staples Signature: Date (if applicable) CC: Normal [facility] Pacemaker reportOrdered By: Omer Wray on 01-27-2025 Study report [facility] [address] [place] [address] TXT:Device Implant / Explant MR#: [id number] Acct: [id number] Name: TRE QUIÑONES Rep #:[id number] : 1955 69 From: Omer Wray MD PCP: OR Hospital Status:[facility] [place] Patient: TRE QUIÑONES Study Date: 01/27/2025 Performing: Omer Wray MD : 1955 Age: 69 Gender: male PROCEDURES PERFORMED LP07-([id number])BATTERY REMOVAL+REPLACEMENT PACER-DUAL LEAD INDICATIONS Sinoatrial node dysfunction/Sick sinus syndrome PROCEDURE DETAILS The patient was brought to the Catheterization Lab in the postabsorptive nonsedated state. Informed consent was obtained prior to the procedure. Local anesthetic was given subcutaneously to the left subclavian region with Lidocaine 2%. Incision was made to the left upper chest. PPM generator was removed. PPM generator was attached to the lead(s) and inserted into the pocket. PPM generator was then interrogated by the z os mainframe systems programmer. Device pocket was irrigated with antibiotic. Subcutaneous closure was completed with 3-0 Vicryl. Skin closure was completed with 4-0 Vicryl. Instrument, sponge, and needle counts were noted to be normal. The patient tolerated the procedure well. Estimated Blood Loss: < 10 mls IMPLANTED / EX-PLANTED DEVICES IMPLANTED DEVICE(S): PPM Generator - Residential Therapist: [employer], Model # ESSENTIO MRI L131 , Serial # [id number] DEVICE PARAMETERS DEVICE PARAMETERS: Mode- DDDR Lower rate- 60 Upper rate- 130 CONCLUSIONS / RECOMMENDATIONS Device Conclusions: Successful implantation of a dual chamber pacemaker battery change and replacement Device Recommendations: Follow up with Primary Care Physician PROCEDURE MEDICATIONS Fentanyl 50 mcg IV Versed 1 mg IV Fentanyl 50 mcg IV Versed 1 mg IV Versed 1 mg IV Versed 1 mg IV Versed 1 mg IV Oxygen: 2 L/min via nasal cannula Antibiotic given in appropriate timeframe. Ancef 3 Gm IV @ 01/27/2025 11:27:02 Signed By Omer Wray MD On 01/27/2025 12:26:34 Omer Wray MD 01/27/25 1227 Date _ Omer Wray MD Cosign Signature: Date (if indicated) CC: Dr. Omer Wray MD; [facility] ~ Date Dictated: 01/27/25 1145 Date Transcribed: 01/27/25 1226 Supervisor Engraving: [place] Signed [facility] Work Phone: TXT:Device Implant / Explant on 01-27-2025 TXT:Device Implant / Explant [facility] Imaging Services [address] [place] [address] TXT:Device Implant / Explant MR#: [id number] Acct: [id number] Name: TRE QUIÑONES Rep #: [id number] : 1955 69 From: Omer Wray MD PCP: [facility] Status:[place] [facility] [place] Patient: TRE QUIÑONES Study Date: 01/27/2025 Performing: Omer Wray MD : 1955 Age: 69 Gender: male PROCEDURES PERFORMED LP07-([id number])BATTERY REMOVAL+REPLACEMENT PACER-DUAL LEAD INDICATIONS Sinoatrial node dysfunction/Sick sinus syndrome PROCEDURE DETAILS The patient was brought to the Catheterization Lab in the postabsorptive nonsedated state. Informed consent was obtained prior to the procedure. Local anesthetic was given subcutaneously to the left subclavian region with Lidocaine 2%. Incision was made to the left upper chest. PPM generator was removed. PPM generator was attached to the lead(s) and inserted into the pocket. PPM generator was then interrogated by the z os mainframe systems programmer. Device pocket was irrigated with antibiotic. Subcutaneous closure was completed with 3-0 Vicryl. Skin closure was completed with 4-0 Vicryl. Instrument, sponge, and needle counts were noted to be normal. The patient tolerated the procedure well. Estimated Blood Loss: < 10 mls IMPLANTED / EX-PLANTED DEVICES IMPLANTED DEVICE(S): PPM Generator - Residential Therapist: [employer], Model # ESSENTIO MRI L131 , Serial # [id number] DEVICE PARAMETERS DEVICE PARAMETERS: Mode- DDDR Lower rate- 60 Upper rate- 130 CONCLUSIONS / RECOMMENDATIONS Device Conclusions: Successful implantation of a dual chamber pacemaker battery change and replacement Device Recommendations: Follow up with Primary Care Physician PROCEDURE MEDICATIONS Fentanyl 50 mcg IV Versed 1 mg IV Fentanyl 50 mcg IV Versed 1 mg IV Versed 1 mg IV Versed 1 mg IV Versed 1 mg IV Oxygen: 2 L/min via nasal cannula Antibiotic given in appropriate timeframe. Ancef 3 Gm IV @ 01/27/2025 11:27:02 Signed By Omer Wray MD On 01/27/2025 12:26:34 Omer Wray MD 01/27/25 1227 Date Omer Wray MD Cosigner Signature: Date (if indicated) CC: Dr. Omer Wray MD; [facility] Date Dictated: 01/27/25 1145 Date Transcribed: 01/27/25 1226 Supervisor Engraving: [place] Signed Normal [facility] Absolute lymphocyte countOrd ered By: Juana Rodriguez on 01-26-2025 Lymphocytes Auto (Unsp spec) [#/Vol] 1.18 10*3/uL 0.83-4.51 [facility] Absolute neutrophil countOrd ered By: Juana Rodriguez on 01-26-2025 Neutrophils (Bld) [#/Vol] 8.0 10*3/uL High 2.0-7.7 [facility] Anion gap in Serum or Plasma Ordered By: Juana Rodriguez on 01-26-2025 Anion gap [Moles/Vol] 13 mmol/L 5-15 [facility] Automated lymphocyte count a s percentage of total leukocytesOrdered By: Juana Rodriguez on 01-26-2025 Lymphocytes/100 WBC Auto (Unsp spec) 12.4 % Low 19-41 [facility] BUN/creatinine ratioOrdered By: Juana Rodriguez on 01-26-2025 Urea nitrogen/Creatinine [Mass ratio] 28.5 mg/mg High 02-10 [facility] Basic Metabolic Profile (BMP )on 01-26-2025 BUN/CRE 28.5 RATIO High 02-10 [facility] Comment on above: Performed By: #### L 500.2500, L100.0100 #### [facility] [address] [place], [address] Calcium [Mass/Vol] 9.7 mg/dL Normal 7.6-11.0 [facility] Comment on above: Performed By: #### L 500.2500, L100.0100 #### [facility] [address] [place], [address] Chloride [Moles/Vol] 105 mmol/L Normal 98-108 [facility] Comment on above: Performed By: #### L 500.2500, L100.0100 #### [facility] [address] [place], [address] CO2 [Moles/Vol] 23.1 mmol/L Normal 21.0-32.0 [facility] Comment on above: Performed By: #### L 500.2500, L100.0100 #### [facility] [address] [place], [address] Creatinine [Mass/Vol] 0.96 mg/dL Normal 0.70-1.20 [facility] Comment on above: Performed By: #### L 500.2500, L100.0100 #### [facility] [address] [place], [address] ECRCL 109.63 ml/min Normal 50-250 [facility] Comment on above: Performed By: #### L 500.2500, L100.0100 #### [facility] [address] [place], [address] GAP 13 Normal 5-15 [facility] Comment on above: Performed By: #### L 500.2500, L100.0100 #### [facility] [address] [place], [address] GFR/1.73 sq M.predicted among non-blacks MDRD (S/P/Bld) [Vol rate/Area] 86 mL/min/{1.73_m2} Normal >60 [facility] Comment on above: Result Comment: mL/m in/1.73m2 CKD-EPI Creatinine Equation (2020) Performed By: #### L 500.2500, L100.0100 #### [facility] [address] [place], [address] Glucose [Mass/Vol] 135 mg/dL High 70-99 [facility] Comment on above: Performed By: #### L 500.2500, L100.0100 #### [facility] [address] [place], [address] Potassium [Moles/Vol] 4.8 mmol/L Normal 3.3-5.1 [facility] Comment on above: Performed By: #### L 500.2500, L100.0100 #### [facility] [address] [place], [address] Sodium [Moles/Vol] 142 mmol/L Normal 133-145 [facility] Comment on above: Performed By: #### L 500.2500, L100.0100 #### [facility] [address] [place], [address] Urea nitrogen [Mass/Vol] 27 mg/dL High 4-19 [facility] Comment on above: Performed By: #### L 500.2500, L100.0100 #### [facility] [address] [place], [address] Basophil percentageOrdered B y: Juana Rodriguez on 01-26-2024 Basophils/100 WBC (Bld) 0.1 % 0-1 [facility] CBC W/Diff, Automatedon Absolute Lymph 1.18 X10 3/uL Normal 0.83-4.51 [facility] Comment on above: Performed By: #### L 500.2500, L100.0100 #### [facility] [address] [place], [address] Absolute Neut 8.0 X10 3/uL High 2.0-7.7 [facility] Comment on above: Performed By: #### L 500.2500, L100.0100 #### [facility] [address] [place], [address] Basophils/100 WBC (Bld) 0.1 % Normal 0-1 [facility] Comment on above: Performed By: #### L 500.2500, L100.0100 #### [facility] [address] [place], [address] Eosinophils/100 WBC (Bld) 0.0 % Normal 0-5 [facility] Comment on above: Performed By: #### L 500.2500, L100.0100 #### [facility] [address] [place], [address] Erythrocyte distribution width (RBC) [Ratio] 14.4 % Normal 11.6-14.6 [facility] Comment on above: Performed By: #### L 500.2500, L100.0100 #### [facility] [address] [place], [address] Hematocrit (Bld) [Volume fraction] 41.7 % Normal 40-54 [facility] Comment on above: Performed By: #### L 500.2500, L100.0100 #### [facility] [address] [place], [address] Hemoglobin (Bld) [Mass/Vol] 13.9 g/dL Normal 13.0-16.5 [facility] Comment on above: Performed By: #### L 500.2500, L100.0100 #### [facility] [address] [place], [address] IG% 0.400 Normal 0.0-0.9 [facility] Comment on above: Result Comment: IG% - Immature Granulocytes (promyelocytes, myelocytes and metamyelocytes) > 1% indicates that a LEFT SHIFT is Present. Performed By: #### L 500.2500, L100.0100 #### [facility] [address] [place], [address] Lymphocytes/100 WBC (Bld) 12.4 % Low 19-41 [facility] Comment on above: Performed By: #### L 500.2500, L100.0100 #### [facility] [address] [place], [address] MCH (RBC) [Entitic mass] 28.1 pg Normal 27.0-32.0 [facility] Comment on above: Performed By: #### L 500.2500, L100.0100 #### [facility] [address] [place], [address] MCHC (RBC) [Mass/Vol] 33.3 g/dL Normal 32-36 [facility] Comment on above: Performed By: #### L 500.2500, L100.0100 #### [facility] [address] [place], [address] MCV (RBC) [Entitic vol] 84.2 fL Normal 80-94 [facility] Comment on above: Performed By: #### L 500.2500, L100.0100 #### [facility] [address] [place], [address] Monocytes/100 WBC (Bld) 3.3 % Normal 0-10 [facility] Comment on above: Performed By: #### L 500.2500, L100.0100 #### [facility] [address] [place], [address] Neutrophils/100 WBC (Bld) 83.8 % High 47-70 [facility] Comment on above: Performed By: #### L 500.2500, L100.0100 #### [facility] [address] [place], [address] Nucleated RBC (Bld) [#/Vol] 0 10*3/uL Normal 0-5 [facility] Comment on above: Performed By: #### L 500.2500, L100.0100 #### [facility] [address] [place], [address] Platelet mean volume (Bld) [Entitic vol] 10.4 fL Normal 6.2-12.0 [facility] Comment on above: Performed By: #### L 500.2500, L100.0100 #### [facility] [address] [place], [address] Platelets (Bld) [#/Vol] 232 10*3/uL Normal 150-450 [facility] Comment on above: Performed By: #### L 500.2500, L100.0100 #### [facility] [address] [place], [address] RBC (Bld) [#/Vol] 4.95 10*6/uL Normal 4.6-6.2 [facility] Comment on above: Performed By: #### L 500.2500, L100.0100 #### [facility] [address] [place], [address] RDW SD 43.8 fl Normal 35.1-43.9 [facility] Comment on above: Performed By: #### L 500.2500, L100.0100 #### [facility] [address] [place], [address] WBC (Bld) [#/Vol] 9.5 10*3/uL Normal 4.4-11.0 [facility] Comment on above: Performed By: #### L 500.2500, L100.0100 #### [facility] [address] [place], [place], [address] Carbon dioxide, total [Moles /volume] in Central venous bloodOrdered By: Juana Rodriguez on 01-26-2025 CO2 [Moles/Vol] 23.1 mmol/L 21.0-32.0 [facility] Chloride assayOrdered By: Rodrick Rodriguez on 01-26-2025 Chloride [Moles/Vol] 105 mmol/L 98-108 [facility] Discharge Instructionon Discharge Instruction [facility] Medical Records Department [address] [place] [address] Instructions for Home/Discharge Instructions 01/26/25 1151 MR#: [id number] Acct: [id number] Name: TRE QUIÑONES Imtiaz Rep #: [id number] : 1955 69 From: Juana Rodriguez MD PCP: OR Hospital Status:ADM IN Discharge Instructions DC O2, CPAP, BIPAP needs Home O2 Discharge instructions: No Dressing / Incision Discharge Activity: - (Increase activity as tolerated) Follow Up Care Test Results: Test results from this visit will be discussed in further detail at your follow-up appointment, if applicable. Discharge Plan Admission Admit Date/Time: 01/25/25 13:23 Primary Reason for Your Visit: Shortness of breath Attending Provider: Juana Rodriguez Primary Care Provider: [facility],[place] Instructions Patient Instructions: Asthma Additional Instructions / Restrictions: DISCHARGE INSTRUCTIONS PLEASE READ *Please take this with you to your next doctors appointment* - Please continue to use your breathing treatments at home and follow-up closely with the OR -You will be discharged on a prednisone taper: -60 mg daily x3 days -50mg daily x3 days -40mg daily x3 days -30mg daily x3 days -20mg daily x3 days -10mg daily x3 days -Please call your primary care provider's office upon discharge to schedule a hospital follow up within 1 week. -For any concerning signs or symptoms please call 911 or proceed to the nearest emergency department Discharge Orders/Prescriptions Prescriptions: New prednisone 20 mg Tablet See Taper PO BREAKFAST Qty: 32 0RF Taper: Prednisone Taper 60 mg WITH BREAKFAST for 3 Days and 0 Hour 50 mg WITH BREAKFAST for 3 Days and 0 Hour 40 mg WITH BREAKFAST for 3 Days and 0 Hour 30 mg WITH BREAKFAST for 3 Days and 0 Hour 20 mg WITH BREAKFAST for 3 Days and 0 Hour 10 mg WITH BREAKFAST for 3 Days and 0 Hour Continued lisinopril 20 mg tablet 20 mg PO DAILY cholecalciferol (vitamin D3) 50 mcg (2,000 unit) capsule 50 mcg PO DAILY empagliflozin 25 mg tablet 12.5 mg PO QAM diclofenac sodium [Voltaren Arthritis Pain] 1 % gel 2 g topical ONCE PRN (Reason: Arthritis Pain) Rx Instructions: apply to bilateral shoulders potassium gluconate 595 mg (99 mg) tablet 595 mg PO QDAY metoprolol succinate 50 mg tablet extended release 24 hr 50 mg PO QDAY Qty: 90 3RF albuterol sulfate 1 INHALER inhaler 2 puff INHALATION Q6H PRN PRN (Reason: Wheezing/SOB) Patient Comments: Wheezing/SOB tadalafil 5 mg tablet 5 mg PO DAILY Patient Comments: Take 1 tablet by mouth every morning. rivaroxaban 20 mg tablet 20 mg PO QDAY Rx Instructions: administer with evening meal pregabalin [Lyrica] 75 mg capsule 75 mg PO BID Combivent Respimat 20-100 mcg/actuation mist 1 puff inhalation Q6H eplerenone [Inspra] 25 mg tablet 12.5 mg PO DAILY Qty: 30 1RF furosemide 20 mg tablet 20 mg PO QAM Referrals [facility] [Primary Care Provider, None] - Within 1 Week Disposition Disposition (needs filled in before D/C Order can be placed): Home, Self Care 01/26/25 1152 Juana Rodriguez MD CC: [facility] Signed Normal [facility] Electrocardiogram reportOrde red By: Omer Wray on 01-26-2025 EKG study [facility] Cardiovascular Services [address] [place] [address] 12 Lead EKG 01/25/25 1119 MR#: [id number] Acct: [id number] Name: TRE QUIÑONES Rep #:[id number] : 1955 69 From: Omer Wray MD Attending Dr: Dr. Juana Rodriguez MD Status: DIS IN Ordering Dr: Raymond Madrid MD Date: 08/16 Location: [facility] Sex: M C Admitted: 01/25/25 Test Reason : Blood Pressure : */* mmHG Vent. Rate : 60 BPM Atrial Rate : 60 BPM P-R Int : 178 ms QRS Dur : 178 ms QT Int : 464 ms P-R-T Axes : * 190 46 degrees QTcB Int : 464 ms AV dual-paced rhythm Abnormal ECG Confirmed by OMER WRAY MD ([id number]), graphics editor HILTON TEMPLE ([id number]) on 01/27/2025 8:28:38 AM Referred By: Confirmed By: OMER WRAY MD 01/27/2528 Date _ Omer Wray MD CC: Dr. Raymond Madrid MD; Dr. Juana Rodriguez MD; [facility] ~ Signed [facility] Work Phone: Eosinophil percentageOrdered By: Juana Rodriguez on 01-26-2025 Eosinophils/100 WBC (Bld) 0.0 % 0-5 [facility] Erythrocyte distribution wid th ratioOrdered By: Juana Rodriguez on 01-26-2025 Erythrocyte distribution width (RBC) [Ratio] 14.4 % 11.6-14.6 [facility] Erythrocyte distribution wid th standard deviationOrdered By: Juana Rodriguez on 01-26-2025 Erythrocyte distribution width (RBC) [Ratio] 43.8 fl 35.1-43.9 [facility] Glomerular filtration rate ( GFR) estimation/1.73 sq m using serum, plasma, or whole bOrdered By: Juana Rodriguez on 01-26-2025 GFR/1.73 sq M.predicted among non-blacks MDRD (S/P/Bld) [Vol rate/Area] 86 mL/min/{1.73_m2} >60 [facility] Comment on above: mL/min/1.73m2 CKD-EP I Creatinine Equation (2020) Hematocrit Auto (Bld) [Volum e fraction]Ordered By: Juana Rodriguez on 01-26-2025 Hematocrit (Bld) [Volume fraction] 41.7 % 40-54 [facility] Hemoglobin measurementOrdere d By: Juana Rodriguez on 01-26-2025 Hemoglobin (Bld) [Mass/Vol] 13.9 g/dL 13.0-16.5 [facility] Immature granulocytes/100 WB C Auto (Bld)Ordered By: Juana Rodriguez on 01-26-2025 Immature granulocytes/100 WBC (Bld) 0.400 % 0.0-0.9 [facility] Comment on above: IG% - Immature Granu locytes (promyelocytes, myelocytes and metamyelocytes) > 1% indicates that a LEFT SHIFT is Present. MCV (mean corpuscular volume ) determinationOrdered By: Juana Rodriguez on 01-26-2025 MCV (RBC) [Entitic vol] 84.2 fL 80-94 [facility] Mean corpuscular hemoglobin (MCH) determinationOrdered By: Juana Rodriguez on 01-26-2025 MCH (RBC) [Entitic mass] 28.1 pg 27.0-32.0 [facility] Mean corpuscular hemoglobin concentration (MCHC) determinationOrdered By: Juana Rodriguez on 01-26-2025 MCHC (RBC) [Mass/Vol] 33.3 g/dL 32-36 [facility] Mean platelet volume determi nationOrdered By: Juana Rodriguez on 01-26-2025 Platelet mean volume (Bld) [Entitic vol] 10.4 fL 6.2-12.0 [facility] Monocyte percentageOrdered B y: Juana Rodriguez on 01-26-2025 Monocytes/100 WBC (Bld) 3.3 % 0-10 [facility] Neutrophil percentageOrdered By: Juana Rodriguez on 01-26-2025 Neutrophils/100 WBC (Bld) 83.8 % High 47-70 [facility] Nucleated red blood cell per centageOrdered By: Juana Rodriguez on 01-26-2025 Nucleated RBC/100 WBC (Bld) [Ratio] 0 % 0-5 [facility] Platelet countOrdered By: Rodrick Rodriguez on 01-26-2025 Platelets (Bld) [#/Vol] 232 10*3/uL 150-450 [facility] Potassium measurement (mass/ volume)Ordered By: Juana Rodriguez on 01-26-2025 Potassium (Unsp spec) [Mass/Vol] 4.8 mmol/L 3.3-5.1 [facility] RBC Auto (Bld) [#/Vol]Ordere d By: Juana Rodriguez on 01-26-2025 RBC (Bld) [#/Vol] 4.95 10*6/uL 4.6-6.2 [facility] Serum creatinine measurement (mass/volume)Ordered By: Juana Rodriguez on 01-26-2025 Creatinine [Mass/Vol] 0.96 mg/dL 0.70-1.20 [facility] Serum glucose measurement (m ass/volume)Ordered By: Juana Rodriguez on 01-26-2025 Glucose [Mass/Vol] 135 mg/dL High 70-99 [facility] Serum or plasma calcium filiberto urement (mass/volume)Ordered By: Juana Rodriguez on 01-26-2025 Calcium [Mass/Vol] 9.7 mg/dL 7.6-11.0 [facility] Serum or plasma urea nitroge n measurement (mass/volume)Ordered By: Juana Rodriguez on 01-26-2025 Urea nitrogen [Mass/Vol] 27 mg/dL High 4-19 [facility] Sodium levelOrdered By: Dayron Rodriguez on 01-26-2025 Sodium [Moles/Vol] 142 mmol/L 133-145 [facility] White blood cell (WBC) count Ordered By: Juana Rodriguez on 01-26-2025 WBC (Bld) [#/Vol] 9.5 10*3/uL 4.4-11.0 [facility] 12 Lead EKGon 01-25-2025 12 Lead EKG [facility] Cardiovascular Services [address] [place] [address] 12 Lead EKG 01/25/25 1119 MR#: [id number] Acct: [id number] Name: TRE QUIÑONES Rep #: [id number] : 1955 69 From: Omer Wray MD Attending Dr: Dr. Juana Rodriguez MD Status: DIS IN Ordering Dr: Raymond Madrid MD Date: 01/25/25 Location: [facility] Sex: M C Admitted: 01/25/25 Test Reason : Blood Pressure : */* mmHG Vent. Rate : 60 BPM Atrial Rate : 60 BPM P-R Int : 178 ms QRS Dur : 178 ms QT Int : 464 ms P-R-T Axes : * 190 46 degrees QTcB Int : 464 ms AV dual-paced rhythm Abnormal ECG Confirmed by OMER WRAY MD ([id number]), graphics editor HILTON TEMPLE ([id number]) on 01/27/2025 8:28:38 AM Referred By: Confirmed By: OMER WRAY MD 01/27/2528 Date Omer Wray MD CC: Dr. Raymond Madrid MD; Dr. Juana Rodriguez MD; [facility] Signed Normal [facility] Basic Metabolic Profile (BMP )on 01-25-2025 BUN/CRE 17.2 RATIO Normal 10-20 [facility] Comment on above: Performed By: #### L 503.7505, L501.4021, L100.0100, L500.2500 #### [facility] Laboratory [address] [place], [address] Calcium [Mass/Vol] 9.6 mg/dL Normal 7.6-11.0 [facility] Comment on above: Performed By: #### L 503.7505, L501.4021, L100.0100, L500.2500 #### [facility] Laboratory [address] [place], [address] Chloride [Moles/Vol] 108 mmol/L Normal 98-108 [facility] Comment on above: Performed By: #### L 503.7505, L501.4021, L100.0100, L500.2500 #### [facility] Laboratory [address] [place], [address] CO2 [Moles/Vol] 25.2 mmol/L Normal 21.0-32.0 [facility] Comment on above: Performed By: #### L 503.7505, L501.4021, L100.0100, L500.2500 #### [facility] Laboratory [address] [place], [address] Creatinine [Mass/Vol] 0.96 mg/dL Normal 0.70-1.20 [facility] Comment on above: Performed By: #### L 503.7505, L501.4021, L100.0100, L500.2500 #### [facility] Laboratory [address] [place], [address] GAP 11 Normal 5-15 [facility] Comment on above: Performed By: #### L 503.7505, L501.4021, L100.0100, L500.2500 #### [facility] Laboratory [address] [place], [address] GFR/1.73 sq M.predicted among non-blacks MDRD (S/P/Bld) [Vol rate/Area] 87 mL/min/{1.73_m2} Normal >60 [facility] Comment on above: Result Comment: mL/m in/1.73m2 CKD-EPI Creatinine Equation (2020) Performed By: #### L 503.7505, L501.4021, L100.0100, L500.2500 #### [facility] Laboratory [address] [place], [address] Glucose [Mass/Vol] 101 mg/dL High 70-99 [facility] Comment on above: Performed By: #### L 503.7505, L501.4021, L100.0100, L500.2500 #### [facility] Laboratory [address] [place], [address] Potassium [Moles/Vol] 4.2 mmol/L Normal 3.3-5.1 [facility] Comment on above: Performed By: #### L 503.7505, L501.4021, L100.0100, L500.2500 #### [facility] Laboratory [address] [place], [address] Sodium [Moles/Vol] 144 mmol/L Normal 133-145 [facility] Comment on above: Performed By: #### L 503.7505, L501.4021, L100.0100, L500.2500 #### [facility] Laboratory [address] [place], [address] Urea nitrogen [Mass/Vol] 16 mg/dL Normal 4-19 [facility] Comment on above: Performed By: #### L 503.7505, L501.4021, L100.0100, L500.2500 #### [facility] Laboratory [address] [place], [address] CBC W/Diff, Automatedon 10-0 4-2024 Absolute Lymph 1.27 X10 3/uL Normal 0.83-4.51 [facility] Comment on above: Performed By: #### L 503.7505, L501.4021, L100.0100, L500.2500 #### [facility] Laboratory [address] [place], [address] Absolute Neut 3.9 X10 3/uL Normal 2.0-7.7 [facility] Comment on above: Performed By: #### L 503.7505, L501.4021, L100.0100, L500.2500 #### [facility] Laboratory [address] [place], [address] Basophils/100 WBC (Bld) 1.2 % High 0-1 [facility] Comment on above: Performed By: #### L 503.7505, L501.4021, L100.0100, L500.2500 #### [facility] Laboratory [address] [place], [address] Eosinophils/100 WBC (Bld) 7.3 % High 0-5 [facility] Comment on above: Performed By: #### L 503.7505, L501.4021, L100.0100, L500.2500 #### [facility] Laboratory [address] [place], [address] Erythrocyte distribution width (RBC) [Ratio] 14.2 % Normal 11.6-14.6 [facility] Comment on above: Performed By: #### L 503.7505, L501.4021, L100.0100, L500.2500 #### [facility] Laboratory [address] [place], [address] Hematocrit (Bld) [Volume fraction] 41.2 % Normal 40-54 [facility] Comment on above: Performed By: #### L 503.7505, L501.4021, L100.0100, L500.2500 #### [facility] Laboratory [address] [place], [address] Hemoglobin (Bld) [Mass/Vol] 13.1 g/dL Normal 13.0-16.5 [facility] Comment on above: Performed By: #### L 503.7505, L501.4021, L100.0100, L500.2500 #### [facility] Laboratory [address] [place], [address] IG% 0.200 Normal 0.0-0.9 [facility] Comment on above: Result Comment: IG% - Immature Granulocytes (promyelocytes, myelocytes and metamyelocytes) > 1% indicates that a LEFT SHIFT is Present. Performed By: #### L 503.7505, L501.4021, L100.0100, L500.2500 #### [facility] Laboratory [address] [place], [address] Lymphocytes/100 WBC (Bld) 19.7 % Normal 19-41 [facility] Comment on above: Performed By: #### L 503.7505, L501.4021, L100.0100, L500.2500 #### [facility] Laboratory [address] [place], [address] MCH (RBC) [Entitic mass] 27.5 pg Normal 27.0-32.0 [facility] Comment on above: Performed By: #### L 503.7505, L501.4021, L100.0100, L500.2500 #### [facility] Laboratory [address] [place], [address] MCHC (RBC) [Mass/Vol] 31.8 g/dL Low 32-36 [facility] Comment on above: Performed By: #### L 503.7505, L501.4021, L100.0100, L500.2500 #### [facility] Laboratory [address] [place], [address] MCV (RBC) [Entitic vol] 86.4 fL Normal 80-94 [facility] Comment on above: Performed By: #### L 503.7505, L501.4021, L100.0100, L500.2500 #### [facility] Laboratory [address] [place], [address] Monocytes/100 WBC (Bld) 12.1 % High 0-10 [facility] Comment on above: Performed By: #### L 503.7505, L501.4021, L100.0100, L500.2500 #### [facility] Laboratory [address] [place], [address] Neutrophils/100 WBC (Bld) 59.5 % Normal 47-70 [facility] Comment on above: Performed By: #### L 503.7505, L501.4021, L100.0100, L500.2500 #### [facility] Laboratory [address] [place], [address] Nucleated RBC (Bld) [#/Vol] 0 10*3/uL Normal 0-5 [facility] Comment on above: Performed By: #### L 503.7505, L501.4021, L100.0100, L500.2500 #### [facility] Laboratory [address] [place], [address] Platelet mean volume (Bld) [Entitic vol] 10.2 fL Normal 6.2-12.0 [facility] Comment on above: Performed By: #### L 503.7505, L501.4021, L100.0100, L500.2500 #### [facility] Laboratory [address] [place], [address] Platelets (Bld) [#/Vol] 204 10*3/uL Normal 150-450 [facility] Comment on above: Performed By: #### L 503.7505, L501.4021, L100.0100, L500.2500 #### [facility] Laboratory [address] [place], [address] RBC (Bld) [#/Vol] 4.77 10*6/uL Normal 4.6-6.2 [facility] Comment on above: Performed By: #### L 503.7505, L501.4021, L100.0100, L500.2500 #### [facility] Laboratory [address] [place], [address] RDW SD 45.3 fl High 35.1-43.9 [facility] Comment on above: Performed By: #### L 503.7505, L501.4021, L100.0100, L500.2500 #### [facility] Laboratory [address] [place], [address] WBC (Bld) [#/Vol] 6.5 10*3/uL Normal 4.4-11.0 [facility] Comment on above: Performed By: #### L 503.7505, L501.4021, L100.0100, L500.2500 #### [facility] Laboratory [address] [place], [address] Chest PA and Lateralon 10-04 -2025 Chest PA and Lateral [facility] Imaging Services [address] [place] [address] Chest PA and Lateral MR#: [id number] Acct: [id number] Name: TRE QUIÑONES Rep #: [id number] : 1955 M 69 From: Mercedes Jaffe MD PCP: [facility] Status: REG ER Study: Chest PA and Lateral Date of Exam: 01/25/25 Exam# [id number] Ordering Dr: Raymond Madrid MD PROCEDURE: CHEST PA AND LATERAL 01/25/2025 REASON FOR EXAM: CHEST PAIN TECHNIQUE: Procedure Code: RADCXR Modality: DX Procedure: CHEST PA AND LATERAL COMPARISON: 08/13/2024 FINDINGS: LINES: Left-sided pacemaker device with right atrial and right ventricular leads. LUNGS AND PLEURA: No focal airspace consolidation. No pleural effusion or pneumothorax. HEART AND MEDIASTINUM: The cardiac silhouette is mildly enlarged. The mediastinal contour is normal. Median sternotomy wires and an AtriClip are present. PULMONARY VESSELS: Mild prominence of the central pulmonary vasculature. BONES: No acute osseous abnormality. RAD/Chest PA and Lateral IMPRESSION: Cardiomegaly with mild vascular congestion. Reading Location: [facility] CC: Dr. Raymond Madrid MD; [facility] Supervisor Engraving: Signed Normal [facility] Emergency Department Summary on 01-25-2025 Emergency Department Summary [facility] Medical Records Department [address] [place] [address] Emergency Department Summary 01/25/25 MR#: [id number] Acct: [id number] Name: TRE QUIÑONES Rep #: [id number] : 1955 69 From: Raymond Madrid MD PCP: [facility] Status:REG ER Location: ED HPI History of Present Illness Chief Complaint: Shortness of Breath Informant: patient and spouse/S.O. Onset/Context/Timing Onset: Days Context: gradual Timing: Continuous Quality: Positive for Wheezing Current Severity: Moderate Maximum Severity: Moderate Worsened by: Exertion and Coughing Relieved by: Nothing Associated Symptoms cough Chest Pain: Positive for None Narrative Narrative: 69-year-old male history of asthma, A-fib on Xarelto with pacemaker prior valve replacement with a pig valve. An open heart surgery. States has been short of breath last few days. Nonproductive cough. Afebrile. No chest pain. States she is wheezing. Denies any leg swelling. PE Risk Factors: Negative for Cancer, OCP + Smoking + > 35, Prior DVT or PE, Recent immobilization, Recent surgery or Recent travel Prior similar symptoms: Yes Recent Illness/Hospitalizati on: No PFSH PFSH Medical History History of pacemaker Wears [...] mg PO DAILY 12/19/22 11/19/23 Hi story cholecalciferol (vitamin D3) 50 50 mcg PO DAILY 10/27/23 Unknown H istory mcg (2,000 unit) capsule eplerenone 25 mg tablet (Inspra) 12.5 mg (1/2 x 25 mg) PO DAILY #30 11/13/23 Unknown Rx tabs acetaminophen 325 mg capsule 325 mg PO ONCE PRN fever or pain 1 Unknown History diclofenac sodium 1 % topical gel 2 g topical ONCE PRN Arthritis Pa in 02/14/24 Unknown History (Voltaren Arthritis Pain) empagliflozin 25 mg tablet 12.5 mg PO QAM 02/14/24 Unknown Hi story potassium gluconate 595 mg (99 mg) 595 mg PO QDAY 02/19/24 Unknown History tablet metoprolol succinate 50 mg 50 mg PO QDAY #90 tabs 03/13/24 Un known Rx tablet,extended release 24 hr amoxicillin 500 mg capsule 2,000 mg PO ONCE PRN . 09/18/24 Un known History rivaroxaban 20 mg tablet 20 mg PO QDAY 09/18/24 Unknown His tory furosemide 20 mg tablet 20 mg PO QAM 01/13/25 Unknown Hist ory Allergy/AdvReac Type Severity Reaction Status Date / Time Environmental Allergies: Allergy wheezing, Verified 01/25/25 10:47 Uncoded (hay fever) cough Family History Mother [...] servings: 5 and coffee ROS ROS ED ROS Narrative Short of breath. Wheezing. Mild nonproductive cough. No chest pain. No fever or chills. Constitutional Constitutional ED: Denies chills or fever(s) Eyes Eyes: Denies blurry vision ENT ENT ED: Denies ear pain Cardiovascular Cardiovascular: Denies chest pain Respiratory/Chest Respiratory/Chest: Reports cough and dyspnea Gastrointestinal Gastrointest (more content not included)... Normal [facility] H AND P Exam - [facility] 01-25-2025 H&P Exam - Hospitalist [facility] Medical Records Department [address] [place] [address] H P Exam - Hospitalist 01/25/25 1323 MR#: [id number] Acct: [id number] Name: TRE QUIÑONES Rep #: [id number] : 1955 69 From: Juana Rodriguez MD PCP: [facility] Status:REG ER Location: ED HPI - General General Date of Admission: 01/25/25 Date of Service: 01/25/25 Chief Complaint: SOB HPI Narrative TRE QUIÑONES, is a 69-year-old male with a history of asthma, A-fib on Xarelto, pacemaker placement, mitral and tricuspid valve replacement, Maze procedure, hypertension, JOSÉ MIGUEL who presented to [facility] ED 01/25/25 for several days of increased shortness of breath and nonproductive cough. Denies any leg swelling and is afebrile. No chest pain. In the ED temp 97.8, heart rate 59, blood pressure 155/69, respiratory rate initially 30 with pulse ox 96% on room air but decreased to 18, CBC with white count 6.5 and hemoglobin 13.1, BMP only notable for glucose of 101. Chest x-ray with cardiomegaly and mild vascular congestion, proBNP of 420, troponin of 52. Patient given steroids and nebs, he was also given a dose of Lasix, hospitalist contacted for admission due to his shortness of breath and respiratory distress. Patient evaluated at bedside. Symptoms have been present over the past 2 to 3 days and presented somewhat suddenly with wheezing and increased shortness of breath, has had a nonproductive cough since last night. No chest pain or fevers, no bowel or bladder changes. Little bit of nasal congestion now that nasal cannula is in place but no sore throat. also has a slight cough but no shortness of breath. He does feel little bit better after breathing treatments and steroids but still diffusely wheezing with shortness of breath. Patient denies any lower extremity swelling. [facility] Medical History History of pacemaker Wears hearing [...] mg PO DAILY 12/19/22 11/19/23 Hi story cholecalciferol (vitamin D3) 50 50 mcg PO DAILY 10/27/23 Unknown H istory mcg (2,000 unit) capsule eplerenone 25 mg tablet (Inspra) 12.5 mg (1/2 x 25 mg) PO DAILY #30 11/13/23 Unknown Rx tabs acetaminophen 325 mg capsule 325 mg PO ONCE PRN fever or pain 1 Unknown History diclofenac sodium 1 % topical gel 2 g topical ONCE PRN Arthritis Pa in 02/14/24 Unknown History (Voltaren Arthritis Pain) empagliflozin 25 mg tablet 12.5 mg PO QAM 02/14/24 Unknown Hi story potassium gluconate 595 mg (99 mg) 595 mg PO QDAY 02/19/24 Unknown History tablet metoprolol succinate 50 mg 50 mg PO QDAY #90 tabs 03/13/24 Un known Rx tablet,extended release 24 hr amoxicillin 500 mg capsule 2,000 mg PO ONCE PRN . 09/18/24 Un known History rivaroxaban 20 mg tablet 20 mg PO QDAY 09/18/24 Unknown His tory furosemide 20 mg tablet 20 mg PO QAM 01/13/25 Unknown Hist ory Allergy/AdvReac Type Severity Reaction Status Date / Time Environmental Allergies: Allergy wheezing, Verified 01/25/25 10:47 Uncoded (hay fever) cough Family History Mother [...] History household members: spouse Smoking Status: Former sm (more content not included)... Normal [facility] Influenza virus A and B and SARS-CoV-2 (COVID-19) and Respiratory syncytial virus RNAOrdered By: Raymond Madrid on 01-25-2025 SARS-CoV-2 (COVID-19) RNA ARTIS+probe Ql (Unsp spec) [facility] SARS-CoV-2 (COVID-19) RNA ARTIS+probe Ql (Unsp spec) [facility] L501.4021on 01-25-2025 Trop T High Sen 52 ng/L High <=22 [facility] Comment on above: Result Comment: Crit ical Result(s) Called to: Marie RODRIGUEZ (ER) by: Lenore??Results read back by same. Performed By: #### L 503.7505, L501.4021, L100.0100, L500.2500 #### [facility] Laboratory [address] [place], [address] M100.678on 01-25-2025 M100.678 Normal Reference Range = Negative FLUABV+SARS-CoV-2+RSV Pnl Resp ARTIS+probe GeneXpert Instrument, PCR method SARS-CoV-2 (COVID 19) Negative INFLUENZA A Negative INFLUENZA B Negative RSV PCR Negative Normal [facility] Comment on above: Performed By: #### M 100.678 #### [facility] Laboratory [address] [place], [address] Natriuretic peptide.B prohor beny N-Terminal [Mass/volume] in Serum or PlasmaOrdered By: Raymond Madrid on 01-25-2025 Natriuretic peptide.B prohormone N-Terminal [Mass/Vol] 420 pg/mL <900 [facility] Comment on above: Heart Failure Unlike ly: < 300 pg/mLHeart Failure Likely< 50 Years: > 450 pg/mL50-75 Years: > 900 pg/mL>75 Years: > 1800 pg/mL Pro- Brain NATRIURETIC PEPTI Garrett 01-25-2025 Natriuretic peptide B (Bld) [Mass/Vol] 420 pg/mL Normal <=900 [facility] Comment on above: Result Comment: Hear t Failure Unlikely: < 300 pg/mL Heart Failure Likely < 50 Years: > 450 pg/mL 50-75 Years: > 900 pg/mL >75 Years: > 1800 pg/mL Performed By: #### L 503.7505, L501.4021, L100.0100, L500.2500 #### [facility] [address] [place], [address] RESPIRATORY PANEL MOLECULARo n 01-25-2025 RP PANEL ADENOVIRUS Not Detected INFLUENZA A Not Detected INFLUENZA A (SUBTYPE H1) Not Detected INFLUENZA A (SUBTYPE H3) Not Detected INFLUENZA B Not Detected HUMAN METAPHNEUMO Not Detected PARAINFLUENZA 1 Not Detected PARAINFLUENZA 2 Not Detected PARAINFLUENZA 3 Not Detected PARAINFLUENZA 4 Not Detected RHINOVIRUS Not Detected RSV A Not Detected RSV B Not Detected Normal [facility] [place] Comment on above: Performed By: #### M 100.638 #### [facility] [address] [place], [address] Respiratory pathogens detect ion panel by molecular detection methodOrdered By: Juana Rodriguez on 01-25-2025 Respiratory pathogens DNA and RNA panel ARTIS+probe (Resp) [facility] Respiratory pathogens DNA and RNA panel ARTIS+probe (Resp) [facility] Troponin T HS 2 HRon 025 Trop T High Sen 50 ng/L High <=22 [facility] Comment on above: Performed By: #### L 499.0042 #### [facility] [address] [place], [address] Troponin T HS 4 HRon 025 Trop T High Sen 42 ng/L High <=22 [facility] Comment on above: Performed By: #### M 100.638 #### [facility] [address] [place], [place], [address] Troponin T.cardiac [Mass/vol ume] in Serum or Plasma by High sensitivity methodOrdered By: Raymond Madrid on 01-25-2025 Troponin T.cardiac High sensitivity method [Mass/Vol] 42 ng/L High <22 [facility] Troponin T.cardiac High sensitivity method [Mass/Vol] 50 ng/L High <22 [facility] Troponin T.cardiac High sensitivity method [Mass/Vol] 52 ng/L High <22 [facility] Comment on above: Critical Result(s) C alled to: Marie RODRIGUEZ (ER) by: Lenore Results read back by same. Anion gap in Serum or Plasma Ordered By: Evelyn Deleon on 01-13-2025 Anion gap [Moles/Vol] 13 mmol/L 5- [facility] BUN/creatinine ratioOrdered By: Evelyn Deleon on 01-13-2025 Urea nitrogen/Creatinine [Mass ratio] 28.3 mg/mg High 10- [facility] Bilirubin Test strip Ql (U)O rdered By: Evelyn Deleon on 01-13-2025 Bilirubin Ql (U) Negative Negative [facility] Carbon dioxide, total [Moles /volume] in Central venous bloodOrdered By: Evelyn Deleon on 01-13-2025 CO2 [Moles/Vol] 22.3 mmol/L 21.0-32.0 [facility] Cardiology Visit Reporton Cardiology Visit Report [facility] [address] [place] [address] OFFICE VISIT Date of Service: 01/13/25 MR#: [id number] Acct: [id number] Name: TRE QUIÑONES Rep #: [id number] : 1955 Provider: JOHNNA lira Age/Sex: 69/M Location[place] [facility] Status: Signed HPI HPI History of [...] and flutter. He was sent to the [facility]. The more recent evaluation demonstrated areas of atrial flutter in the tricuspid annulus region. He also subsequently had a permanent pacemaker implanted after his radio frequency ablation in 2017. He had started experiencing more atrial arrhythmias once again and he was sent back to [facility]. It was felt after discussing all the options that the sotalol should be discontinued and he was started on amiodarone. He had been following up at the [facility] due to insurance issues. He had a stress test in 2020. He did have an echocardiogram performed on September [address] [facility] and he was recorded to have a moderately dilated left ventricle with estimated ejection fraction of 60 to 65% right ventricle with a pacemaker placed in mitral valve which was normal with severe mitral regurgitation. He had echocardiogram in October 2023 at [facility] that showed ejection fraction of 60% and moderately severe eccentric mitral valve insufficiency. Transesophageal echocardiogram on 11/21/2023 showed severe mitral valve insufficiency. Heart catheterization on 11/21/2023 showed angiographically normal coronary arteries. He was seen with [facility], Dr. Diamond in January 2024. Mitral valve [...] function 55???5%, mildly dilated right ventricle, #33 [place] mitral valve annuloplasty ring with trace mitral [...] 1 Y FU (PPM F/U LEANN 1:30) Design Maker Required: No Accompanied by: Self Is patient [...] 02/14/24 History (more content not included)... Normal [facility] Chloride assayOrdered By: Xena Deleon on 01-13-2025 Chloride [Moles/Vol] 106 mmol/L 98-108 [facility] Erythrocyte distribution wid th ratioOrdered By: Evelyn Deleon on 01-13-2025 Erythrocyte distribution width (RBC) [Ratio] 14.0 % 11.6-14.6 [facility] Erythrocyte distribution wid th standard deviationOrdered By: Evelyn Deleon on 01-13-2025 Erythrocyte distribution width (RBC) [Ratio] 44.0 fl High 35.1-43.9 [facility] Glomerular filtration rate ( GFR) estimation/1.73 sq m using serum, plasma, or whole bOrdered By: Evelyn Deleon on 01-13-2025 GFR/1.73 sq M.predicted among non-blacks MDRD (S/P/Bld) [Vol rate/Area] 85 mL/min/{1.73_m2} >60 [facility] Comment on above: mL/min/1.73m2 CKD-EP I Creatinine Equation (2020) Hematocrit Auto (Bld) [Volum e fraction]Ordered By: Evelyn Deleon on 01-13-2025 Hematocrit (Bld) [Volume fraction] 41.1 % 40-54 [facility] Hemoglobin measurementOrdere d By: Evelyn Deleon on 01-13-2025 Hemoglobin (Bld) [Mass/Vol] 13.2 g/dL 13.0-16.5 [facility] International normalized rat io (INR) calculationOrdered By: Evelyn Deleon on 01-13-2025 INR Coag (Bld) [Relative time] 1.4 {INR} [facility] Ketones Test strip Ql (U)Ord ered By: Evelyn Deleon on 01-13-2025 Ketones Ql (U) Negative Negative [facility] MCV (mean corpuscular volume ) determinationOrdered By: Evelyn Deleon on 01-13-2025 MCV (RBC) [Entitic vol] 85.8 fL 80-94 [facility] Mean corpuscular hemoglobin (MCH) determinationOrdered By: Evelyn Deleon 01-13-2025 MCH (RBC) [Entitic mass] 27.6 pg 27.0-32.0 [facility] Mean corpuscular hemoglobin concentration (MCHC) determinationOrdered By: Evelyn Deleon on 01-13-2025 MCHC (RBC) [Mass/Vol] 32.1 g/dL 32-36 [facility] Mean platelet volume determi nationOrdered By: Evelyn Deleon on 01-13-2025 Platelet mean volume (Bld) [Entitic vol] 10.7 fL 6.2-12.0 [facility] Microscopic analysis of urin e for red blood cells (RBC)Ordered By: Evelyn Deleon on 01-13-2025 Microscopic analysis of urine for red blood cells (RBC) 0 SEEN /hpf 0-5 [facility] Mucus LM Ql (Urine sed)Order ed By: Evelyn Deleon on 01-13-2025 Mucus Ql (Urine sed) 0 SEEN /hpf [facility] Nitrite Test strip Ql (U)Ord ered By: Evelyn Deleon on 01-13-2025 Nitrite Ql (U) Negative Negative [facility] Pacemaker Checkon 01-13-2025 Pacemaker Check [facility] [address] [place] [address] Pacemaker Check Date of Service: 01/13/251737 MR#: [id number] Acct: [id number] Name: TRE QUIÑONES Rep #: [id number] : 1955 From: Jolene Larkin Age/Sex: 69/M Location: [facility] Status: Signed Billing Codes PM Device Codes: 71830 PM Dev Prog Eval, Dual Assessment and Plan Assessment and Plan (1) shelter current use of anticoagulant: Status: Acute (2) Presence of left atrial appendage closure device: Status: Acute Comment: 01/23/2024 (3) S/P Maze operation for atrial fibrillation: Status: Acute Comment: 01/23/2024 (4) Sick sinus syndrome: Status: Chronic (5) Atypical atrial flutter: Status: Chronic Comment: RFA 2005, 2017, 2019 (6) Presence of permanent cardiac pacemaker: Status: Chronic 01/13/25 1747 Date Jolene Henriquezignadriano Signature: Date (if applicable) CC: Normal [facility] Platelet countOrdered By: Xena Deleon on 01-13-2025 Platelets (Bld) [#/Vol] 221 10*3/uL 150-450 [facility] Potassium measurement (mass/ volume)Ordered By: Evelyn Deleon on 01-13-2025 Potassium (Unsp spec) [Mass/Vol] 4.3 mmol/L 3.3-5.1 [facility] Protein Test strip Ql (U)Ord ered By: Evelyn Deleon on 01-13-2025 Protein Ql (U) 15 mg/dl High Negative [facility] Prothrombin timeOrdered By: Evelyn Deleon on 01-13-2025 PT Coag (PPP) [Time] 17.9 s High 11.7-14.9 [facility] RBC Auto (Bld) [#/Vol]Ordere d By: Evelyn Deleon on 01-13-2025 RBC (Bld) [#/Vol] 4.79 10*6/uL 4.6-6.2 [facility] Serum creatinine measurement (mass/volume)Ordered By: Evelyn Deleon on 01-13-2025 Creatinine [Mass/Vol] 0.97 mg/dL 0.70-1.20 [facility] Serum glucose measurement (m ass/volume)Ordered By: Evelyn Deleon on 01-13-2025 Glucose [Mass/Vol] 105 mg/dL High 70-99 [facility] Serum or plasma calcium filiberto urement (mass/volume)Ordered By: Evelyn Deleon on 01-13-2025 Calcium [Mass/Vol] 9.5 mg/dL 7.6-11.0 [facility] Serum or plasma urea nitroge n measurement (mass/volume)Ordered By: Evelyn Deleon on 01-13-2025 Urea nitrogen [Mass/Vol] 28 mg/dL High 4-19 [facility] Sodium levelOrdered By: Evelyn Deleon on 01-13-2025 Sodium [Moles/Vol] 141 mmol/L 133-145 [facility] Squamous epithelial cells de tection in urine sediment by light microscopyOrdered By: Evelyn Deleon on 01-13-2025 Epithelial cells.squamous LM Ql (Urine sed) 0-5 SEEN /hpf 0-5 [facility] Urine clarityOrdered By: Ryan Deleon on 01-13-2025 Clarity (U) Clear Clear [facility] Urine color determinationOrd ered By: Evelyn Deleon on 01-13-2025 Color (U) Straw Yellow [facility] Urine glucose detectionOrder ed By: Evelyn Deleon on 01-13-2025 Glucose Ql (U) 1000 mg/dl High Normal [facility] Urine leukocyte esterase det ection by dipstickOrdered By: Evelyn Deleon on 01-13-2025 Leukocyte esterase Test strip Ql (U) Negative Negative [facility] Urine pHOrdered By: Evelyn lira on 01-13-2025 pH (U) 6.0 [pH] 5.0 - 8.0 [facility] Urine sediment bacteria coun t by microscopy (number/high power field)Ordered By: Evelyn Deleon on 01-13-2025 Bacteria LM.HPF (Urine sed) [#/Area] 0 /[HPF] None Seen [facility] Urine specific gravity measu rementOrdered By: Evelyn Deleon on 01-13-2025 Specific gravity (U) [Rel density] 1.015 1.002-1.030 [facility] Urine urobilinogen measureme ntOrdered By: Evelyn Deleon on 01-13-2025 Urobilinogen Ql (U) Normal mg/dl Normal [facility] White blood cell (WBC) count Ordered By: Evelyn Deleon on 01-13-2025 WBC (Bld) [#/Vol] 8.0 10*3/uL 4.4-11.0 [facility] White blood cell countOrdere d By: Evelyn Deleon on 01-13-2025 White blood cell count 0-5 SEEN /hpf 0-5 [facility] Relevant diagnostic tests/la boratory data Narrativeon 12-16-2024 Fall risk assessment no [employer] Work Phone: MEDS REVIEW Documentation of current medications (procedure) [employer] Work Phone: MEDS REVIEWD Medications reviewed without changes [employer] Work Phone: MRI HX of the right ankle o n 12/12/2024 at [facility] [employer] [facility] Work Phone: XRAY HX on 11/06/2024 [facility] Work Phone: MRI ANKLE WO IVCON RTon 11-23 MRI ANKLE WO IVCON RT * * *Final Report* * * DATE OF EXAM: Dec 12 2024 11:30AM [facility] 0164 - MRI ANKLE WO IVCON RT [...] brevis tendon. 2. Mild distal Achilles tendinosis. Supervisor Engraving: PSCB Transcribe Date/Time: Dec 16 2024 10:18A Dictated by : VALERIE HAM MD This examination was interpreted and the report reviewed and electronically signed by: VALERIE HAM MD on Dec 16 2024 10:25AM EST [id number] N Normal [facility] Office Visiton 11-01-2024 Follow-up visit [id number] Tre Quiñones 1955 M Date Provider Department Center 11/01/2024 05298-ORAJLDIDENNY CIFUENTES [facility] URO None No family history on file Level of Service:00341 SC OFFICE/OUTPATIENT ESTABLISHED MOD MDM 30 MIN Reason for Visit and Comments: Other [0] - Annual follow up, medication refills Denies uti symptoms, denies worsening or new urinary concerns Normal [facility] Progress Noteon 11-01-2024 Progress Note Denny [...] Judgment: Judgment normal. LABS: 07/01/2024: PSA: 1.388 (OR) Radiology: Impression/Plan Tre was seen today for [...] [3] No family history on file. Normal [facility] Echo Complete W/ Contraston 10-24-2024 Echo Complete W/ Contrast [facility] [address] [place] [address] Echo Complete W/ Contrast 10/24/24 0555 MR#: [id number] Acct: [id number] Name: TRE QUIÑONES Rep #: [id number] : 1955 69 From: Omer Wray MD Attending Dr: Evelyn Deleon SAP PPM CONSULTANT-C Status: REG CLI Ordering Dr: Evelyn Deleon SAP PPM CONSULTANT SAP PPM CONSULTANT-C Date: 10/24/24 Location: [facility] Sex: M C Admitted: Reason [...] mmHg. Ordering Physician: Evelyn Deleon Referring Physician: [facility] Performed By: Sunshine Esquivel RDCS, RVT 10/24/24 1231 Date Omer Wray MD CC: SAP PPM CONSULTANT-C Evelyn Deleon; [facility] Date Dictated: 10/24/2455 Date Transcribed: 10/24/24 123 Supervisor Engraving: Signed Normal [facility] Echocardiogram study reportO rdered By: Omer Wray on 10-24-2024 Study report [facility] [address] [place] [address] Echo Complete W/ Contrast 10/24/24554 MR#: [id number] Acct: [id number] Name: TRE QUIÑONES Rep #:[id number] : 1955 69 From: Omer Kitchen Attending Dr: JOHNNA Thornton [facility] tus: REG CLI Ordering Dr: Evelyn Deleon NP Date: 10/24/24 Location: [facility] Sex: M C Admitted: Reason [...] mmHg. Ordering Physician: Evelyn Deleon Referring Physician: [facility] Performed By: Sunshine Esquivel, JUAN, RVT 10/24/24 1231 Date _ Omer Wray MD CC: JOHNNA Deleon; [facility] ~ Date Dictated: 10/24/24554 Date Transcribed: 10/24/24 1231 Supervisor Engraving: Signed [facility] Work Phone: 36on 10-07-2024 36 TE. Pt last OV 10/15/21, requesting refill Cialis. Appt scheduled 11/01 @ [address] [place] [address]. Pt confirms d/t/l. Normal [facility] Anion gap in Serum or Plasma Ordered By: Evelyn Deleon on 09-18-2024 Anion gap [Moles/Vol] 10 mmol/L - [facility] BUN/creatinine ratioOrdered By: Evelyn Deleon on 09-18-2024 Urea nitrogen/Creatinine [Mass ratio] 28.2 mg/mg High 10- [facility] Basic Metabolic Profile (BMP )on 09-18-2024 BUN/CRE 28.2 RATIO High 02-10 [facility] Comment on above: Performed By: #### Almas 100.883 #### [facility] [address] [place], [address] Calcium [Mass/Vol] 9.4 mg/dL Normal 7.6-11.0 [facility] Comment on above: Performed By: #### Almas 100.348 #### [facility] [address] [place], [address] Chloride [Moles/Vol] 107 mmol/L Normal 98-108 [facility] Comment on above: Performed By: #### M 100.638 #### [facility] [address] [place], [address] CO2 [Moles/Vol] 24.3 mmol/L Normal 21.0-32.0 [facility] Comment on above: Performed By: #### M 100.638 #### [facility] [address] [place], [address] Creatinine [Mass/Vol] 0.92 mg/dL Normal 0.70-1.20 [facility] Comment on above: Performed By: #### M 100.638 #### [facility] [address] [place], [address] GAP 10 Normal 5-15 [facility] Comment on above: Performed By: #### M 100.638 #### [facility] [address] [place], [address] GFR/1.73 sq M.predicted among non-blacks MDRD (S/P/Bld) [Vol rate/Area] 91 mL/min/{1.73_m2} Normal >60 [facility] Comment on above: Result Comment: mL/m in/1.73m2 CKD-EPI Creatinine Equation (2020) Performed By: #### M 100.638 #### [facility] [address] [place], [address] Glucose [Mass/Vol] 95 mg/dL Normal 70-99 [facility] Comment on above: Performed By: #### M 100.638 #### [facility] [address] [place], [address] Potassium [Moles/Vol] 4.1 mmol/L Normal 3.3-5.1 [facility] Comment on above: Performed By: #### M 100.638 #### [facility] [address] [place], [address] Sodium [Moles/Vol] 141 mmol/L Normal 133-145 [facility] Comment on above: Performed By: #### M 100.638 #### [facility] [address] [place], [address] Urea nitrogen [Mass/Vol] 26 mg/dL High 4-19 [facility] Comment on above: Performed By: #### M 100.638 #### [facility] [address] [place], [place], [address] Carbon dioxide, total [Moles /volume] in Central venous bloodOrdered By: Evelyn Deleon on 09-18-2024 CO2 [Moles/Vol] 24.3 mmol/L 21.0-32.0 [facility] Cardiology Visit Reporton Cardiology Visit Report [facility] [address] [place], [place] [address] OFFICE VISIT Date of Service: 09/18/24 MR#: [id number] Acct: [id number] Name: TRE QUIÑONES Rep #: [id number] : 1955 Provider: JOHNNA lira Age/Sex: 69/M Location[place] [facility] Status: Signed HPI HPI History of [...] and flutter. He was sent to the [facility]. The more recent evaluation demonstrated areas of atrial flutter in the tricuspid annulus region. He also subsequently had a permanent pacemaker implanted after his radio frequency ablation in 2018. He had started experiencing more atrial arrhythmias once again and he was sent back to [facility]. It was felt after discussing all the options that the sotalol should be discontinued and he was started on amiodarone. He had been following up at the [facility] due to insurance issues. He had a stress test in 2020. He did have an echocardiogram performed on September [address] [facility] and he was recorded to have a moderately dilated left ventricle with estimated ejection fraction of 60 to 65% right ventricle with a pacemaker placed in mitral valve which was normal with severe mitral regurgitation. He had echocardiogram in October 2023 at [facility] that showed ejection fraction of 60% and moderately severe eccentric mitral valve insufficiency. Transesophageal echocardiogram on 11/21/2023 showed severe mitral valve insufficiency. Heart catheterization on 11/21/2023 showed angiographically normal coronary arteries. He was seen with [facility], Dr. Diamond in January 2024. Mitral valve annuloplasty with size 33 mm Sauzo annuloplasty band and corknot, tricuspid valve annuloplasty [...] NIBP Intake Visit Reasons: 3 M FU Design Maker Required: No Is patient in pain?: No [...] Pain) empaglifloz (more content not included)... Normal [facility] Chloride assayOrdered By: Xena Deleon on 09-18-2024 Chloride [Moles/Vol] 107 mmol/L 98-108 [facility] Glomerular filtration rate ( GFR) estimation/1.73 sq m using serum, plasma, or whole bOrdered By: Evelyn Deleon on 09-18-2024 GFR/1.73 sq M.predicted among non-blacks MDRD (S/P/Bld) [Vol rate/Area] 91 mL/min/{1.73_m2} >60 [facility] Comment on above: mL/min/1.73m2 CKD-EP I Creatinine Equation (2020) L503.7505on 09-18-2024 Natriuretic peptide B (Bld) [Mass/Vol] 538 pg/mL Normal <=900 [facility] Comment on above: Result Comment: Hear t Failure Unlikely: < 300 pg/mL Heart Failure Likely < 50 Years: > 450 pg/mL 50-75 Years: > 900 pg/mL >75 Years: > 1800 pg/mL Performed By: #### M 100.638 #### [facility] [address] [place], [address] Natriuretic peptide.B prohor beny N-Terminal [Mass/volume] in Serum or PlasmaOrdered By: Evelyn Deleon on 09-18-2024 Natriuretic peptide.B prohormone N-Terminal [Mass/Vol] 538 pg/mL <900 [facility] Comment on above: Heart Failure Unlike ly: < 300 pg/mLHeart Failure Likely< 50 Years: > 450 pg/mL50-75 Years: > 900 pg/mL>75 Years: > 1800 pg/mL Potassium measurement (mass/ volume)Ordered By: Evelyn Deleon on 09-18-2024 Potassium (Unsp spec) [Mass/Vol] 4.1 mmol/L 3.3-5.1 [facility] Serum creatinine measurement (mass/volume)Ordered By: Evelyn Deleon on 09-18-2024 Creatinine [Mass/Vol] 0.92 mg/dL 0.70-1.20 [facility] Serum glucose measurement (m ass/volume)Ordered By: Evelyn Deleon on 09-18-2024 Glucose [Mass/Vol] 95 mg/dL 70-99 [facility] Serum or plasma calcium filiberto urement (mass/volume)Ordered By: Evelyn Deleon on 09-18-2024 Calcium [Mass/Vol] 9.4 mg/dL 7.6-11.0 [facility] Serum or plasma urea nitroge n measurement (mass/volume)Ordered By: Evelyn Deleon on 09-18-2024 Urea nitrogen [Mass/Vol] 26 mg/dL High 4-19 [facility] Sodium levelOrdered By: Evelyn Deleon on 09-18-2024 Sodium [Moles/Vol] 141 mmol/L 133-145 [facility] Absolute lymphocyte countOrd ered By: Qamar Rosario on 08-13-2024 Lymphocytes Auto (Unsp spec) [#/Vol] 1.26 10*3/uL 0.83-4.51 [facility] Absolute neutrophil countOrd ered By: Qamar Rosario on 08-13-2024 Neutrophils (Bld) [#/Vol] 3.7 10*3/uL 2.0-7.7 [facility] Anion gap in Serum or Plasma Ordered By: Qamar Rosario on 08-13-2024 Anion gap [Moles/Vol] 9 mmol/L 5- [facility] Automated lymphocyte count a s percentage of total leukocytesOrdered By: Qamar Rosario on 08-13-2024 Lymphocytes/100 WBC Auto (Unsp spec) 20.3 % - [facility] BUN/creatinine ratioOrdered By: Qamar Rosario on 08-13-2024 Urea nitrogen/Creatinine [Mass ratio] 18.5 mg/mg 10- [facility] Basic Metabolic Profile (BMP )on 08-13-2024 BUN/CRE 18.5 RATIO Normal - [facility] Comment on above: Performed By: #### M 100.678 #### [facility] [address] [place], [address] Calcium [Mass/Vol] 9.3 mg/dL Normal 7.6-11.0 [facility] Comment on above: Performed By: #### M 100.678 #### [facility] [address] [place], [address] Chloride [Moles/Vol] 105 mmol/L Normal 98-108 [facility] Comment on above: Performed By: #### M 100.678 #### [facility] [address] [place], [address] CO2 [Moles/Vol] 25.9 mmol/L Normal 21.0-32.0 [facility] Comment on above: Performed By: #### M 100.678 #### [facility] [address] [place], [address] Creatinine [Mass/Vol] 1.05 mg/dL Normal 0.70-1.20 [facility] Comment on above: Performed By: #### M 100.678 #### [facility] [address] [place], [address] ECRCL 100.31 ml/min Normal 50-250 [facility] Comment on above: Performed By: #### M 100.678 #### [facility] [address] [place], [address] GAP 9 Normal 5-15 [facility] Comment on above: Performed By: #### M 100.678 #### [facility] [address] [place], [address] GFR/1.73 sq M.predicted among non-blacks MDRD (S/P/Bld) [Vol rate/Area] 78 mL/min/{1.73_m2} Normal >60 [facility] Comment on above: Result Comment: mL/m in/1.73m2 CKD-EPI Creatinine Equation (2020) Performed By: #### M 100.678 #### [facility] [address] [place], [address] Glucose [Mass/Vol] 125 mg/dL High 70-99 [facility] Comment on above: Performed By: #### M 100.678 #### [facility] [address] [place], [address] Potassium [Moles/Vol] 4.3 mmol/L Normal 3.3-5.1 [facility] Comment on above: Performed By: #### M 100.678 #### [facility] [address] [place], [address] Sodium [Moles/Vol] 140 mmol/L Normal 133-145 [facility] Comment on above: Performed By: #### M 100.678 #### [facility] [address] [place], [address] Urea nitrogen [Mass/Vol] 19 mg/dL Normal 4-19 [facility] Comment on above: Performed By: #### M 100.678 #### [facility] [address] [place], [address] Basophil percentageOrdered B y: Qamar Rosario on 08-13-2024 Basophils/100 WBC (Bld) 1.3 % High 0-1 [facility] CBC W/Diff, Automatedon 07-24 Absolute Lymph 1.26 X10 3/uL Normal 0.83-4.51 [facility] Comment on above: Performed By: #### M 100.638 #### [facility] [address] [place], [address] Absolute Neut 3.7 X10 3/uL Normal 2.0-7.7 [facility] Comment on above: Performed By: #### M 100.638 #### [facility] [address] [place], [address] Basophils/100 WBC (Bld) 1.3 % High 0-1 [facility] Comment on above: Performed By: #### M 100.638 #### [facility] [address] [place], [address] Eosinophils/100 WBC (Bld) 6.1 % High 0-5 [facility] Comment on above: Performed By: #### M 100.638 #### [facility] [address] [place], [address] Erythrocyte distribution width (RBC) [Ratio] 15.3 % High 11.6-14.6 [facility] Comment on above: Performed By: #### M 100.638 #### [facility] [address] [place], [address] Hematocrit (Bld) [Volume fraction] 38.9 % Low 40-54 [facility] Comment on above: Performed By: #### M 100.638 #### [facility] [address] [place], [address] Hemoglobin (Bld) [Mass/Vol] 12.3 g/dL Low 13.0-16.5 [facility] Comment on above: Performed By: #### M 100.638 #### [facility] [address] [place], [address] IG% 0.600 Normal 0.0-0.9 [facility] Comment on above: Result Comment: IG% - Immature Granulocytes (promyelocytes, myelocytes and metamyelocytes) > 1% indicates that a LEFT SHIFT is Present. Performed By: #### M 100.638 #### [facility] [address] [place], [address] Lymphocytes/100 WBC (Bld) 20.3 % Normal 19-41 [facility] Comment on above: Performed By: #### M 100.638 #### [facility] [address] [place], [address] MCH (RBC) [Entitic mass] 26.7 pg Low 27.0-32.0 [facility] Comment on above: Performed By: #### M 100.638 #### [facility] [address] [place], [address] MCHC (RBC) [Mass/Vol] 31.6 g/dL Low 32-36 [facility] Comment on above: Performed By: #### M 100.638 #### [facility] [address] [place], [address] MCV (RBC) [Entitic vol] 84.6 fL Normal 80-94 [facility] Comment on above: Performed By: #### M 100.638 #### [facility] [address] [place], [address] Monocytes/100 WBC (Bld) 12.1 % High 0-10 [facility] Comment on above: Performed By: #### M 100.638 #### [facility] [address] [place], [address] Neutrophils/100 WBC (Bld) 59.6 % Normal 47-70 [facility] Comment on above: Performed By: #### M 100.638 #### [facility] [address] [place], [address] Nucleated RBC (Bld) [#/Vol] 0 10*3/uL Normal 0-5 [facility] Comment on above: Performed By: #### M 100.638 #### [facility] [address] [place], [address] Platelet mean volume (Bld) [Entitic vol] 10.7 fL Normal 6.2-12.0 [facility] Comment on above: Performed By: #### M 100.638 #### [facility] [address] [place], [address] Platelets (Bld) [#/Vol] 189 10*3/uL Normal 150-450 [facility] Comment on above: Performed By: #### M 100.638 #### [facility] [address] [place], [address] RBC (Bld) [#/Vol] 4.60 10*6/uL Normal 4.6-6.2 [facility] Comment on above: Performed By: #### M 100.638 #### [facility] [address] [place], [address] RDW SD 46.9 fl High 35.1-43.9 [facility] Comment on above: Performed By: #### M 100.638 #### [facility] [address] [place], [address] WBC (Bld) [#/Vol] 6.2 10*3/uL Normal 4.4-11.0 [facility] Comment on above: Performed By: #### M 100.638 #### [facility] [address] [place], [address] Carbon dioxide, total [Moles /volume] in Central venous bloodOrdered By: Qamar Rosario on 08-13-2024 CO2 [Moles/Vol] 25.9 mmol/L 21.0-32.0 [facility] Chest PA and Lateralon 08-13 Chest PA and Lateral [facility] Imaging Services [address] [place] [address] Chest PA and Lateral MR#: [id number] Acct: [id number] Name: QUIÑONESTRE Rep #: [id number] : 1955 M 69 From: Mikaela Rosario MD PCP: [facility] Status: REG ER Study: Chest PA and Lateral Date of Exam: 08/13/24 Exam# [id number] Ordering Dr: Qamar Rosario DO EXAM: XR [...] Superimposed pneumonia cannot be excluded. Reading [facility] CC: Dr. Qamar Rosario DO; [facility] Supervisor Engraving: Signed Normal [facility] Chloride assayOrdered By: Kishan Rosario on 08-13-2024 Chloride [Moles/Vol] 105 mmol/L 98-108 [facility] Emergency Department Summary on 08-13-2024 Emergency Department Summary [facility] Medical Records Department [address] [place] [address] Emergency Department Summary 08/13/24 MR#: [id number] Acct: [id number] Name: TRE QUIÑONES Rep #: [id number] : 1955 69 From: Qamar Carroll [facility]CP: [facility] Status:DEP ER Location: ED HPI History of [...] history of diabetes. Prior similar symptoms: Yes PFSH PFSH Medical History History of pacemaker Wears [...] or weakness (more content not included)... Normal [facility] Eosinophil percentageOrdered By: Qamar Rosario on 08-13-2024 Eosinophils/100 WBC (Bld) 6.1 % High 0-5 [facility] Erythrocyte distribution wid th ratioOrdered By: Qamar Rosario on 08-13-2024 Erythrocyte distribution width (RBC) [Ratio] 15.3 % High 11.6-14.6 [facility] Erythrocyte distribution wid th standard deviationOrdered By: Qamar Rosario on 08-13-2024 Erythrocyte distribution width (RBC) [Ratio] 46.9 fl High 35.1-43.9 [facility] Glomerular filtration rate ( GFR) estimation/1.73 sq m using serum, plasma, or whole bOrdered By: Qamar Rosario on 08-13-2024 GFR/1.73 sq M.predicted among non-blacks MDRD (S/P/Bld) [Vol rate/Area] 78 mL/min/{1.73_m2} >60 [facility] Comment on above: mL/min/1.73m2 CKD-EP I Creatinine Equation (2020) Hematocrit Auto (Bld) [Volum e fraction]Ordered By: Qamar Rosario on 08-13-2024 Hematocrit (Bld) [Volume fraction] 38.9 % Low 40-54 [facility] Hemoglobin measurementOrdere d By: Qamar Rosario on 08-13-2024 Hemoglobin (Bld) [Mass/Vol] 12.3 g/dL Low 13.0-16.5 [facility] Immature granulocytes/100 WB C Auto (Bld)Ordered By: Qamar Rosairo on 08-13-2024 Immature granulocytes/100 WBC (Bld) 0.600 % 0.0-0.9 [facility] Comment on above: IG% - Immature Granu locytes (promyelocytes, myelocytes and metamyelocytes) > 1% indicates that a LEFT SHIFT is Present. MCV (mean corpuscular volume ) determinationOrdered By: Qamar Rosario on 08-13-2024 MCV (RBC) [Entitic vol] 84.6 fL 80-94 [facility] Mean corpuscular hemoglobin (MCH) determinationOrdered By: Qamar Rosario on 08-13-2024 MCH (RBC) [Entitic mass] 26.7 pg Low 27.0-32.0 [facility] Mean corpuscular hemoglobin concentration (MCHC) determinationOrdered By: Qamar Rosario on 08-13-2024 MCHC (RBC) [Mass/Vol] 31.6 g/dL Low 32-36 [facility] Mean platelet volume determi nationOrdered By: Qamar Rosario on 08-13-2024 Platelet mean volume (Bld) [Entitic vol] 10.7 fL 6.2-12.0 [facility] Monocyte percentageOrdered B y: Qamar Rosario on 08-13-2024 Monocytes/100 WBC (Bld) 12.1 % High 0-10 [facility] Neutrophil percentageOrdered By: Qamar Rosario on 08-13-2024 Neutrophils/100 WBC (Bld) 59.6 % 47-70 [facility] Nucleated red blood cell per centageOrdered By: Qamar Rosario on 08-13-2024 Nucleated RBC/100 WBC (Bld) [Ratio] 0 % 0-5 [facility] Platelet countOrdered By: Kishan Rosario on 08-13-2024 Platelets (Bld) [#/Vol] 189 10*3/uL 150-450 [facility] Potassium measurement (mass/ volume)Ordered By: Qamar Rosario on 08-13-2024 Potassium (Unsp spec) [Mass/Vol] 4.3 mmol/L 3.3-5.1 [facility] RBC Auto (Bld) [#/Vol]Ordere d By: Qamar Rosario on 08-13-2024 RBC (Bld) [#/Vol] 4.60 10*6/uL 4.6-6.2 [facility] Serum creatinine measurement (mass/volume)Ordered By: Qamar Rosario on 08-13-2024 Creatinine [Mass/Vol] 1.05 mg/dL 0.70-1.20 [facility] Serum glucose measurement (m ass/volume)Ordered By: Qamar Rosario on 08-13-2024 Glucose [Mass/Vol] 125 mg/dL High 70-99 [facility] Serum or plasma calcium filiberto urement (mass/volume)Ordered By: Qamar Rosario on 08-13-2024 Calcium [Mass/Vol] 9.3 mg/dL 7.6-11.0 [facility] Serum or plasma urea nitroge n measurement (mass/volume)Ordered By: Qamar Rosario on 08-13-2024 Urea nitrogen [Mass/Vol] 19 mg/dL 4-19 [facility] Sodium levelOrdered By: Qamar Rosario on 08-13-2024 Sodium [Moles/Vol] 140 mmol/L 133-145 [facility] White blood cell (WBC) count Ordered By: Qamar Rosario on 08-13-2024 WBC (Bld) [#/Vol] 6.2 10*3/uL 4.4-11.0 [facility] Transferrinon 05-16-2024 Transferrin [Mass/Vol] 345 mg/dL High 177-329 [facility] Comment on above: Result Comment: Perf ormed at: CB - [facility] [address] [id number] Habilitation Assistant: Ignacio Clayton PhD, Phone: [phone] Performed By: #### M 100.638 #### [facility] [address] [facility] [place], [place], [id number] Basic Metabolic Profile (BMP )on 05-15-2024 BUN/CRE 20.2 RATIO High 10-20 [facility] Comment on above: Performed By: #### M 100.638 #### [facility] [address] [place], [place], [id number] CA,Total 9.6 mg/dL Normal 8.5-10.1 [facility] Comment on above: Performed By: #### M 100.638 #### [facility] [address] [place], [place], [address] Chloride [Moles/Vol] 104 mmol/L Normal 98-107 [facility] Comment on above: Performed By: #### M 100.638 #### [facility] [address] [place], [address] CO2 [Moles/Vol] 29.0 mmol/L Normal 21.0-32.0 [facility] Comment on above: Performed By: #### M 100.638 #### [facility] [address] [place], [address] Creatinine [Mass/Vol] 1.24 mg/dL Normal 0.70-1.30 [facility] Comment on above: Result Comment: The validity of the calculated GFR GFRAA in patients over 70 years has not been determined. Clinical correlation is essential. Performed By: #### M 100.638 #### [facility] [address] [place], [address] EST GFR - AA 75 mL/min Normal >60 [facility] Comment on above: Result Comment: Afri can Georgian GFR Calc Performed By: #### M 100.638 #### [facility] [address] [place], [address] GAP 5 Normal 5-15 [facility] Comment on above: Performed By: #### M 100.638 #### [facility] [address] [place], [address] GFR/1.73 sq M.predicted among non-blacks MDRD (S/P/Bld) [Vol rate/Area] 62 mL/min/{1.73_m2} Normal >60 [facility] Comment on above: Result Comment: Non- GFR Calc Performed By: #### M 100.638 #### [facility] [address] [place], [address] Glucose [Mass/Vol] 96 mg/dL Normal 74-106 [facility] Comment on above: Performed By: #### M 100.638 #### [facility] [address] [place], [address] Potassium [Moles/Vol] 4.2 mmol/L Normal 3.5-5.1 [facility] Comment on above: Performed By: #### M 100.638 #### [facility] [address] [place], [address] Sodium [Moles/Vol] 138 mmol/L Normal 136-145 [facility] Comment on above: Performed By: #### M 100.638 #### [facility] [address] [place], [address] Urea nitrogen [Mass/Vol] 25 mg/dL High 7-18 [facility] Comment on above: Performed By: #### M 100.638 #### [facility] [address] [place], [address] CBC W/Diff, Automatedon 04-25 Absolute Lymph 1.89 X10 3/uL Normal 0.83-4.51 [facility] Comment on above: Performed By: #### M 100.638 #### [facility] [address] [place], [address] Absolute Neut 3.6 X10 3/uL Normal 2.0-7.7 [facility] Comment on above: Performed By: #### M 100.638 #### [facility] [address] [place], [address] Basophils/100 WBC (Bld) 1.6 % High 0-1 [facility] Comment on above: Performed By: #### M 100.638 #### [facility] [address] [place], [address] Eosinophils/100 WBC (Bld) 3.3 % Normal 0-5 [facility] Comment on above: Performed By: #### M 100.638 #### [facility] [address] [place], [address] Erythrocyte distribution width (RBC) [Ratio] 15.2 % High 11.6-14.6 [facility] Comment on above: Performed By: #### M 100.638 #### [facility] [address] [place], [address] Hematocrit (Bld) [Volume fraction] 42.9 % Normal 40-54 [facility] Comment on above: Performed By: #### M 100.638 #### [facility] [address] [place], [address] Hemoglobin (Bld) [Mass/Vol] 13.3 g/dL Normal 13.0-16.5 [facility] Comment on above: Performed By: #### M 100.638 #### [facility] [address] [place], [address] IG% 0.200 Normal 0.0-0.9 [facility] Comment on above: Result Comment: IG% - Immature Granulocytes (promyelocytes, myelocytes and metamyelocytes) > 1% indicates that a LEFT SHIFT is Present. Performed By: #### M 100.638 #### [facility] [address] [place], [address] Lymphocytes/100 WBC (Bld) 29.6 % Normal 19-41 [facility] Comment on above: Performed By: #### M 100.638 #### [facility] [address] [place], [address] MCH (RBC) [Entitic mass] 25.5 pg Low 27.0-32.0 [facility] Comment on above: Performed By: #### M 100.638 #### [facility] [address] [place], [address] MCHC (RBC) [Mass/Vol] 31.0 g/dL Low 32-36 [facility] Comment on above: Performed By: #### M 100.638 #### [facility] [address] [place], [address] MCV (RBC) [Entitic vol] 82.3 fL Normal 80-94 [facility] Comment on above: Performed By: #### M 100.638 #### [facility] [address] [place], [address] Monocytes/100 WBC (Bld) 8.9 % Normal 0-10 [facility] Comment on above: Performed By: #### M 100.638 #### [facility] [address] [place], [address] Neutrophils/100 WBC (Bld) 56.4 % Normal 47-70 [facility] Comment on above: Performed By: #### M 100.638 #### [facility] [address] [place], [address] Nucleated RBC (Bld) [#/Vol] 0 10*3/uL Normal 0-5 [facility] Comment on above: Performed By: #### M 100.638 #### [facility] [address] [place], [address] Platelet mean volume (Bld) [Entitic vol] 10.8 fL Normal 6.2-12.0 [facility] Comment on above: Performed By: #### M 100.638 #### [facility] [address] [place], [address] Platelets (Bld) [#/Vol] 259 10*3/uL Normal 150-450 [facility] Comment on above: Performed By: #### M 100.638 #### [facility] [address] [place], [address] RBC (Bld) [#/Vol] 5.21 10*6/uL Normal 4.6-6.2 [facility] Comment on above: Performed By: #### M 100.638 #### [facility] [address] [place], [place], [address] RDW SD 45.8 fl High 35.1-43.9 [facility] Comment on above: Performed By: #### M 100.638 #### [facility] [address] [place], [place], [address] WBC (Bld) [#/Vol] 6.4 10*3/uL Normal 4.4-11.0 [facility] Comment on above: Performed By: #### M 100.638 #### [facility] [address] [place], [place], [address] Cardiology Visit Reporton Cardiology Visit Report [facility] [address] [place], [place] [address] OFFICE VISIT Date of Service: 05/15/24 MR#: [id number] Acct: [id number] Name: TRE QUIÑONES Rep #: [id number] : 1955 Provider: JOHNNA lira Age/Sex: 69/M Location: [facility] Status: Signed HPI HPI History of [...] and flutter. He was sent to the [facility]. The more recent evaluation demonstrated areas of atrial flutter in the tricuspid annulus region. He also subsequently had a permanent pacemaker implanted after his radio frequency ablation in 2018. He had started experiencing more atrial arrhythmias once again and he was sent back to [facility]. It was felt after discussing all the options that the sotalol should be discontinued and he was started on amiodarone. He had been following up at the [facility] due to insurance issues. He had a stress test in 2020. He did have an echocardiogram performed on September [address] [facility] and he was recorded to have a moderately dilated left ventricle with estimated ejection fraction of 60 to 65% right ventricle with a pacemaker placed in mitral valve which was normal with severe mitral regurgitation. He had echocardiogram in October 2023 at [facility] that showed ejection fraction of 60% and moderately severe eccentric mitral valve insufficiency. Transesophageal echocardiogram on 11/21/2023 showed severe mitral valve insufficiency. Heart catheterization on 11/21/2023 showed angiographically normal coronary arteries. He was seen with [facility], Dr. Diamond in January 2024. Mitral valve [...] NIBP Intake Visit Reasons: 6 M FU Design Maker Required: No Accompanied by: Is patient in [...] unit) cap (more content not included)... Normal [facility] Ferritinon 05-15-2024 Ferritin [Mass/Vol] 22 ng/mL Low 26-388 [facility] Comment on above: Performed By: #### M 100.638 #### [facility] [address] [place], [address] Ironon 05-15-2024 Iron [Mass/Vol] 46 ug/dL Low 65-175 [facility] Comment on above: Performed By: #### M 100.638 #### [facility] [address] [place], [address] Iron Binding Capacity,Totalo n 05-15-2024 TIBC 416 ug/dL Normal 250-450 [facility] Comment on above: Performed By: #### M 100.638 #### [facility] [address] [place], [address] Chest PA and Lateralon 04-18 Chest PA and Lateral [facility] Imaging Services [address] [place] [address] Chest PA and Lateral MR#: [id number] Acct: [id number] Name: TRE QUIÑONES Rep #: [id number] : 1955 M 69 From: Vick Matthews MD PCP: [facility] Status: REG ER Study: Chest PA and Lateral Date of Exam: 04/18/24 Exam# [id number] Ordering Dr: Sowmya Pryor [id number] EXAM: XR CHEST, 2 VIEWS CLINICAL INDICATION: [...] at 12:45 EST , CC: RODRICK Rocha; [facility] Supervisor Engraving: Signed Normal [facility] Emergency Department Summary on 04-18-2024 Emergency Department Summary [facility] Medical Records Department [address] [place] [address] Emergency Department Summary 04/18/24 MR#: [id number] Acct: [id number] Name: TRE QUIÑONES Rep #: [id number] : 1955 69 From: Sowmya MENSAH PCP: [facility] Status:DEP ER Location: ED HPI History of [...] Xarelto, HTN, pacemaker placement, asthma, and CHF. [facility] Medical History History of pacemaker Wears hearing [...] 97 O (more content not included)... Normal [facility] M100.678on 04-18-2024 M100.678 Pending SARS-CoV-2 (COVID 19) Negative INFLUENZA A Negative INFLUENZA B Negative RSV PCR Negative Normal [facility] Comment on above: Performed By: #### M 100.678 #### [facility] [address] [place], [address] Pacemaker Checkon 03-13-2024 Pacemaker Check [facility] [place] [facility] [address] [place] [address] Pacemaker Check Date of Service: 03/13/241705 MR#: [id number] Acct: [id number] Name: TRE QUIÑONES Rep #: [id number] : 1955 From: Jolene Larkin Age/Sex: 69/M Location: [facility] Status: Signed Billing Codes PM Device Codes: 52260 PM Dev Prog Eval, Dual Assessment and Plan Assessment and Plan (1) Tachycardia: Status: Acute (2) Presence of permanent cardiac pacemaker: Status: Chronic (3) Sick sinus syndrome: Status: Chronic (4) Atypical atrial flutter: Status: Chronic Comment: RFA 2005, 2017, 2019 (5) Paroxysmal atrial fibrillation: Status: Chronic Medications: New metoprolol succinate ER 50 mg PO QDAY 90 tabs 3RF Discontinued metoprolol succinate ER Discontinued Reason: Order Changed 50 mg PO BID 60 tabs 11RF 03/13/24 170 Date Jolene Staples Signature: Date (if applicable) CC: Normal [facility] Candy 03-04-2024 CNPN Telephone (HVICTR) QUIÑONESTRE COYLE ([id number]) 1955 M Date Time Provider Department 03/04/24 Phillip DIAMOND HVICTR During your visit today, we recorded the following information about you: Mikaela Pantoja RN 03/04/2024 1:46 PM Signed [facility] Phone Encounter DATE of SERVICE: 03/04/2024 TIME of SERVICE: 1:43 PM Status: FYI Service/Provider: Cardiac Surgery Tunde Diamond M.D. Reason for call: Shortness of Breath Contact information: [phone] Resolution: Reinforced education Comments: patient called to say he is still experiencing shortness of breath on exertion especially with steps. Advised patient that it was a normal part of the healing process and to continue to use his incentive spirometer 5-10 times an hour while awake. Patient does not have SOB while sitting. O2 sat is 97% HR in the 60's. Encouraged patient to monitor and if SOB increases while at rest or patient experiences dizziness, lightheadedness, blurred vision to seek further evaluation at local ER. Patient agreeable. Mikaela Pantoja RN Date of Resolution: 03/04/2024 Time of Resolution 1:43 PM Allergies As of Date: 03/04/2024 Noted Allergy Reaction HYDROCHLOROTHIAZIDE 05/06/2021 14 - Other: See Comments Comments: Gout INFLUENZA VIRUS VACCINES 01/19/2024 14 - Other: See Comments Comments: Flu like illness POLLEN EXTRACTS 01/19/2024 9 - Itching Comments: Watery, red eyes and sneezing Date Reviewed: 02/06/2024 Reviewed by: Milly Shah MA - Fully Assessed Reason for Visit: Patient Update [1234] Prescriptions as of 03/04/2024 - lisinopril (ZESTRIL) 5 mg tablet Take 1 tablet by mouth once daily. - acetaminophen (TYLENOL) 325 mg tablet Take 1-2 tablets by mouth every 4 hours as needed for pain. - aspirin 81 mg chewable tablet Take 1 tablet by mouth once daily. - polyethylene glycol 3350 17 gram packet Take 1 Packet by mouth once daily as needed for constipation. Dissolve dose in 4 - 8 ounces of liquid and take as directed. - senna-docusate (SENNA-S) 8.6-50 mg per tablet Take 1 tablet by mouth two times a day as needed for constipation. - albuterol (PROVENTIL) 2.5 mg /3 mL (0.083 %) nebulizer solution Inhale as instructed every 4 hours as needed. - amiodarone (PACERONE) 200 mg tablet Take 200 mg by mouth once daily. - amoxicillin (AMOXIL) 500 mg capsule TAKE 4 CAPSULES BY MOUTH ONE HOUR PRIOR TO DENTAL APPOINTMENT. - cholecalciferol (VITAMIN D3) 50 mcg (2,000 unit) tablet Take 50 mcg by mouth once daily. - empagliflozin (JARDIANCE) 25 mg tablet Take 12.5 mg by mouth daily with breakfast. - eplerenone (INSPRA) 25 mg tablet Take 12.5 mg by mouth once daily. - furosemide (LASIX) 20 mg tablet Take 20 mg by mouth once daily. - ipratropium 20 mcg-albuterol 100 mcg (COMBIVENT RESPIMAT) 20-100 mcg/actuation inhaler Inhale as instructed every 4 hours as needed. - metoprolol succinate ER (TOPROL XL) 50 mg 24 hr tablet Take 50 mg by mouth once daily. - rivaroxaban (XARELTO) 20 mg tablet Take 20 mg by mouth once daily. - diclofenac (VOLTAREN ARTHRITIS PAIN) 1 % topical gel Apply 2 g to affected area as needed. Problem List As Of Date 03/04/2024 Noted Resolved DERMATOPHYTOSIS OF GROIN [B35.6] 06/01/2006 DERMATOPHYTOSIS OF FOOT [B35.3] 06/01/2006 INTERTRIGO///ERYTHEMA TOUS COND NEC [L53.8] 06/01/2006 DERMATOPHYTOSIS OF NAIL [B35.1] 06/01/2006 DERMATITIS NOS [L25.9] 06/01/2006 Pre-op testing [Z01.818] 01/18/2024 Pre-op exam [Z01.818] 01/19/2024 Nonrheumatic mitral valve regurgitation [I34.0] 01/19/2024 BALDERAS (dyspnea on exertion) [R06.09] 01/19/2024 PAF (paroxysmal atrial fibrillation) ([facility]) [I48*01/19/2024 Mitral valve prolapse [I34.1] 01/19/2024 Postoperative pain [G89.18] 01/23/2024 On mechanically assisted ventilation ([facility]) [Z99*01/23/2024 Stress hyperglycemia [R73.9] 01/23/2024 Anxiety [F41.9] 01/23/2024 Cardiac pacemaker in situ [Z95.0] 01/23/2024 Class 3 severe obesity due to excess calories w*01/23/2024 Severe mitral regurgitation [I34.0] 01/23/2024 Cardiac arrest ([facility]) [I46.9] 01/23/2024 Cardiac insufficiency following cardiac surgery*01/23/2024 Ex-smoker [Z87.891] 01/25/2024 Ex-tobacco chewer [Z87.891] 01/25/2024 HTN (hypertension) [I10] 01/25/2024 Hypervolemia [E87.70] 01/25/2024 ABLA (acute blood loss anemia) [D62] 01/25/2024 Thrombocytopenia ([facility]) [D69.6] 01/25/2024 Leukocytosis [D72.829] 01/25/2024 Atelectasis [J98.11] 01/26/2024 Chronic diastolic HF (heart failure) ([facility]) [I50*01/29/2024 Encounter for support and coordination of trans*01/29/2024 Encounter Status:Closed by MIKAELA PANTOJA on 03/04/24 Normal [facility] BNP,B-Type NATRIURETIC PEPTI Garrett 03-01-2024 Natriuretic peptide B (Bld) [Mass/Vol] 167.5 pg/mL High 0-100 [facility] Comment on above: Performed By: #### M 100.349 #### [facility] [address] [place], [address] CBC W/Diff, Automatedon 11-0 Absolute Lymph 1.63 X10 3/uL Normal 0.83-4.51 [facility] Comment on above: Performed By: #### M 100.678 #### [facility] [address] [place], [address] Absolute Neut 4.4 X10 3/uL Normal 2.0-7.7 [facility] Comment on above: Performed By: #### M 100.678 #### [facility] [address] [place], [address] Basophils/100 WBC (Bld) 1.4 % High 0-1 [facility] Comment on above: Performed By: #### M 100.678 #### [facility] [address] [place], [address] Eosinophils/100 WBC (Bld) 5.8 % High 0-5 [facility] Comment on above: Performed By: #### M 100.678 #### [facility] [address] [place], [address] Erythrocyte distribution width (RBC) [Ratio] 14.4 % Normal 11.6-14.6 [facility] Comment on above: Performed By: #### M 100.678 #### [facility] [address] [place], [address] Hematocrit (Bld) [Volume fraction] 33.2 % Low 40-54 [facility] Comment on above: Performed By: #### M 100.678 #### [facility] [address] [place], [address] Hemoglobin (Bld) [Mass/Vol] 10.1 g/dL Low 13.0-16.5 [facility] Comment on above: Performed By: #### M 100.678 #### [facility] [address] [place], [address] IG% 0.400 Normal 0.0-0.9 [facility] Comment on above: Result Comment: IG% - Immature Granulocytes (promyelocytes, myelocytes and metamyelocytes) > 1% indicates that a LEFT SHIFT is Present. Performed By: #### M 100.678 #### [facility] [address] [place], [address] Lymphocytes/100 WBC (Bld) 22.0 % Normal 19-41 [facility] Comment on above: Performed By: #### M 100.678 #### [facility] [address] [place], [address] MCH (RBC) [Entitic mass] 27.2 pg Normal 27.0-32.0 [facility] Comment on above: Performed By: #### M 100.678 #### [facility] [address] [place], [address] MCHC (RBC) [Mass/Vol] 30.4 g/dL Low 32-36 [facility] Comment on above: Performed By: #### M 100.678 #### [facility] [address] [place], [address] MCV (RBC) [Entitic vol] 89.2 fL Normal 80-94 [facility] Comment on above: Performed By: #### M 100.678 #### [facility] [address] [place], [address] Monocytes/100 WBC (Bld) 11.5 % High 0-10 [facility] Comment on above: Performed By: #### M 100.678 #### [facility] [address] [place], [address] Neutrophils/100 WBC (Bld) 58.9 % Normal 47-70 [facility] Comment on above: Performed By: #### M 100.678 #### [facility] [address] [place], [address] Nucleated RBC (Bld) [#/Vol] 0 10*3/uL Normal 0-5 [facility] Comment on above: Performed By: #### M 100.678 #### [facility] [address] [place], [address] Platelet mean volume (Bld) [Entitic vol] 10.4 fL Normal 6.2-12.0 [facility] Comment on above: Performed By: #### M 100.678 #### [facility] [address] [place], [address] Platelets (Bld) [#/Vol] 239 10*3/uL Normal 150-450 [facility] Comment on above: Performed By: #### M 100.678 #### [facility] [address] [place], [address] RBC (Bld) [#/Vol] 3.72 10*6/uL Low 4.6-6.2 [facility] Comment on above: Performed By: #### M 100.678 #### [facility] [address] [place], [address] RDW SD 46.4 fl High 35.1-43.9 [facility] Comment on above: Performed By: #### M 100.678 #### [facility] [address] [place], [address] WBC (Bld) [#/Vol] 7.4 10*3/uL Normal 4.4-11.0 [facility] Comment on above: Performed By: #### M 100.678 #### [facility] [address] [place], [address] Comprehensive Metabolic Prof [facility] 03-01-2024 Albumin [Mass/Vol] 3.8 g/dL Normal 3.2-5.0 [facility] Comment on above: Performed By: #### M 100.678 #### [facility] [address] [place], [address] Albumin/Globulin [Mass ratio] 1.3 {ratio} Normal 0.9-2.4 [facility] Comment on above: Performed By: #### M 100.678 #### [facility] [address] [place], [address] ALK P 64 U/L Normal 45-117 [facility] Comment on above: Performed By: #### M 100.678 #### [facility] [address] [place], [address] ALT [Catalytic activity/Vol] 24 U/L Normal 16-61 [facility] Comment on above: Performed By: #### M 100.678 #### [facility] [address] [place], [address] AST [Catalytic activity/Vol] 12 U/L Low 15-37 [facility] Comment on above: Performed By: #### M 100.678 #### [facility] [address] [place], [address] Bilirubin [Mass/Vol] 0.40 mg/dL Normal 0.20-1.00 [facility] Comment on above: Result Comment: For patients on eltrombopag therapy, use of Dimension [place] TBIL is not recommended. Performed By: #### M 100.678 #### [facility] [address] [place], [address] BUN/CRE 21.7 RATIO High 10-20 [facility] Comment on above: Performed By: #### M 100.678 #### [facility] [address] [place], [address] CA,Total 9.3 mg/dL Normal 8.5-10.1 [facility] Comment on above: Performed By: #### M 100.678 #### [facility] [address] [place], [address] Chloride [Moles/Vol] 110 mmol/L High 98-107 [facility] Comment on above: Performed By: #### M 100.678 #### [facility] [address] [place], [address] CO2 [Moles/Vol] 29.0 mmol/L Normal 21.0-32.0 [facility] Comment on above: Performed By: #### M 100.678 #### [facility] [address] [place], [address] Creatinine [Mass/Vol] 1.06 mg/dL Normal 0.70-1.30 [facility] Comment on above: Result Comment: The validity of the calculated GFR GFRAA in patients over 70 years has not been determined. Clinical correlation is essential. Performed By: #### M 100.678 #### [facility] [address] [place], [address] EST GFR - AA 90 mL/min Normal >60 [facility] Comment on above: Result Comment: Afri can Georgian GFR Calc Performed By: #### M 100.678 #### [facility] [address] [place], [address] GAP 3 Low 5-15 [facility] Comment on above: Performed By: #### M 100.678 #### [facility] [address] [place], [address] GFR/1.73 sq M.predicted among non-blacks MDRD (S/P/Bld) [Vol rate/Area] 74 mL/min/{1.73_m2} Normal >60 [facility] Comment on above: Result Comment: Non- GFR Calc Performed By: #### M 100.678 #### [facility] [address] [place], [address] Globulin (S) [Mass/Vol] 3.0 g/dL Normal 2.2-4.2 [facility] Comment on above: Performed By: #### M 100.678 #### [facility] [address] [place], [address] Glucose [Mass/Vol] 101 mg/dL Normal 74-106 [facility] Comment on above: Result Comment: Fast ing Glucose result from 100 to 125 mg/dL suggests IMPAIRED HOMEOSTASIS per A.D.A. criteria. Performed By: #### M 100.678 #### [facility] [address] [place], [address] Potassium [Moles/Vol] 3.9 mmol/L Normal 3.5-5.1 [facility] Comment on above: Performed By: #### M 100.678 #### [facility] [address] [place], [address] Sodium [Moles/Vol] 142 mmol/L Normal 136-145 [facility] Comment on above: Performed By: #### M 100.678 #### [facility] [address] [place], [address] T PROT 6.8 g/dL Normal 6.4-8.2 [facility] Comment on above: Performed By: #### M 100.678 #### [facility] [address] [place], [address] Urea nitrogen [Mass/Vol] 23 mg/dL High 7-18 [facility] Comment on above: Performed By: #### M 100.678 #### [facility] [address] [place], [address] Magnesiumon 03-01-2024 Magnesium [Mass/Vol] 2.9 mg/dL High 1.6-2.6 [facility] Comment on above: Performed By: #### M 100.678 #### [facility] [address] [place], [address] Thyroid Stim Hormone (TSH)on 03-01-2024 TSH 0.805 uIU/mL Normal 0.358-3.740 [facility] Comment on above: Performed By: #### M 100.678 #### [facility] [address] [place], [address] CR - History AND Physicalon 02-28-2024 CR - History & Physical [facility] Cardiac Rehab [address] [place] [address] CR - History Physical MR#: [id number] Acct: [id number] Name: TRE QUIÑONES Rep #: [id number] : 1955 69 From: Darryl Aj BS, RVT PCP: [facility] DOS: 02/28/24 CR - History Physical General [...] Negative Advanced Directives Advanced Directives Power of Airbrush Artist Photography: Yes Living Will: Yes Advance Directives Information [...] at home (more content not included)... Normal [facility] Cardiology Visit Reporton Cardiology Visit Report [facility] [address] [place] [address]. [address] [place] [address] OFFICE VISIT Date of Service: 02/19/24 MR#: [id number] Acct: [id number] Name: TRE QUIÑONES Rep #: [id number] : 1955 Provider: JOHNNA lira Age/Sex: 69/M Location: [facility] Status: Signed [facility] History of Present Illness Details: TRE [...] and flutter. He was sent to the [facility]. The more recent evaluation demonstrated areas of atrial flutter in the tricuspid annulus region. He also subsequently had a permanent pacemaker implanted after his radio frequency ablation in 2017. He had started experiencing more atrial arrhythmias once again and he was sent back to [facility]. It was felt after discussing all the options that the sotalol should be discontinued and he was started on amiodarone. He had been following up at the [facility] due to insurance issues. He had a stress test in 2020. He did have an echocardiogram performed on September [address] [facility] and he was recorded to have a moderately dilated left ventricle with estimated ejection fraction of 60 to 65% right ventricle with a pacemaker placed in mitral valve which was normal with severe mitral regurgitation. He had echocardiogram in October 2023 at [facility] that showed ejection fraction of 60% and moderately severe eccentric mitral valve insufficiency. Transesophageal echocardiogram on 11/21/2023 showed severe mitral valve insufficiency. Heart catheterization on 11/21/2023 showed angiographically normal coronary arteries. He was seen with [facility], Dr. Diamond in January 2024. Mitral valve [...] function 55???5%, mildly dilated right ventricle, #33 [place] mitral valve annuloplasty ring with trace mitral [...] room air Intake Visit Reasons: 1 W FU Design Maker Required: No Accompanied by: Is patient in [...] 02/19/24 Hist (more content not included)... Normal [facility] CBC panel Auto (Bld)on 02-05 Erythrocyte distribution width (RBC) [Ratio] 14.6 % Normal 11.5-15.0 [facility] Comment on above: Order Comment: Jeison parry Type: BLOOD SPECIMEN Ordering Facility: [facility] Address: [address] [place] [address] Performed By: #### 5 8410-2 #### [facility] CLIA [id number] [address] [place], [place] [address] [address] [place] Hematocrit (Bld) [Volume fraction] 28.8 % Low 39.0-51.0 [facility] Comment on above: Order Comment: Jeison parry Type: BLOOD SPECIMEN Ordering Facility: [facility] Address: [address] [place] [address] Performed By: #### 5 8410-2 #### [facility] CLIA [id number] [address] [place] [address] [place] Hemoglobin (Bld) [Mass/Vol] 9.0 g/dL Low 13.0-17.0 [facility] Comment on above: Order Comment: Speci men Type: BLOOD SPECIMEN Ordering Facility: [facility] Address: [address] [place] [address] Performed By: #### 5 8410-2 #### [facility] CLIA [id number] [address] [place] [address] [place] MCH (RBC) [Entitic mass] 28.0 pg Normal 26.0-34.0 [facility] Comment on above: Order Comment: Speci men Type: BLOOD SPECIMEN Ordering Facility: [facility] Address: [address] [place] [address] Performed By: #### 5 8410-2 #### [facility] CLIA [id number] [address] [place] [address] [place] MCHC (RBC) [Mass/Vol] 31.3 g/dL Normal 30.5-36.0 [facility] Comment on above: Order Comment: Speci men Type: BLOOD SPECIMEN Ordering Facility: [facility] Address: [address] [place] [address] Performed By: #### 5 8410-2 #### [facility] CLIA [id number] [address] [place] [address] [place] MCV (RBC) [Entitic vol] 89.7 fL Normal 80.0-100.0 [facility] Comment on above: Order Comment: Speci men Type: BLOOD SPECIMEN Ordering Facility: [facility] Address: [address] [place] [address] Performed By: #### 5 8410-2 #### [facility] CLIA [id number] [address] [place] [address] [place] Nucleated RBC (Bld) [#/Vol] 10*3/uL Normal <0.01 [facility] Comment on above: Order Comment: Speci men Type: BLOOD SPECIMEN Ordering Facility: [facility] Address: [address] [place] [address] Performed By: #### 5 8410-2 #### [facility] CLIA [id number] [address] [place] [address] [place] Platelet mean volume (Bld) [Entitic vol] 9.2 fL Normal 9.0-12.7 [facility] Comment on above: Order Comment: Speci men Type: BLOOD SPECIMEN Ordering Facility: [facility] Address: [address] [place] [address] Performed By: #### 5 8410-2 #### [facility] CLIA [id number] [address] [place] [address] [place] Platelets (Bld) [#/Vol] 403 10*3/uL High 150-400 [facility] Comment on above: Order Comment: Speci men Type: BLOOD SPECIMEN Ordering Facility: [facility] Address: [address] [place] [address] Performed By: #### 5 8410-2 #### [facility] CLIA [id number] [address] [place] [address] [place] RBC (Bld) [#/Vol] 3.21 10*6/uL Low 4.20-6.00 [facility] Comment on above: Order Comment: Speci men Type: BLOOD SPECIMEN Ordering Facility: [facility] Address: [address] [place] [address] Performed By: #### 5 8410-2 #### [facility] CLIA [id number] [address] [place] [address] [place] WBC (Bld) [#/Vol] 9.24 10*3/uL Normal 3.70-11.00 [facility] Comment on above: Order Comment: Speci men Type: BLOOD SPECIMEN Ordering Facility: [facility] Address: [address] [place] [address] Performed By: #### 5 8410-2 #### [facility] CLIA [id number] [address] [place] [address] [id number] [place] [address] OF [facility] CNOVon 02-06-2024 CNOV Office Visit (THOSMN ) TRE QUIÑONES ([id number]) 1955 M Date Time Provider Department 02/06/24 9:00 AM LIZ MADSEN During your visit today, we recorded the following information about you: Temperature Pulse Respiration Blood pressure 99.1 degrees 70/minute 16/minute 105/56 Weight Height 146.1 kg 1.829 m Liz Madsen APRN.SAW FEEDER 02/06/2024 5:04 PM [facility] [place] Department of Cardiovascular Medicine DEPARTMENT [...] Exam: BP 105/56 Pulse 70 Temp 37.3 ?C (99.1 ?F) (Temporal) Resp 16 Ht 182.9 cm (6') Wt (!) 146.1 kg (322 lb) SpO2 95% BMI 43.67 kg/m? Appearance: well developed, obese, white male, in [...] from chest tube sites without difficulty. IMPRESSION AND PLAN: 1.S/P on 01/23/2024 [facility] Surgeon: Phillip Diamond MD SURGERY: Mitral valve annuloplasty with size 33mm Suazo annuloplasty band and corknot. Tricuspid valve annuloplas (more content not included)... Normal [facility] Comprehensive metabolic 2000 panelon 02-06-2024 Albumin [Mass/Vol] 3.8 g/dL Low 3.9-4.9 [facility] Comment on above: Order Comment: Speci men Type: BLOOD SPECIMEN Ordering Facility: [facility] Address: [address] [place] [address] Performed By: #### 2 4323-8 #### [facility] CLIA [id number] [address] [place] [address] [place] [address] [place] ALP [Catalytic activity/Vol] 89 U/L Normal 38-113 [facility] Comment on above: Order Comment: Speci men Type: BLOOD SPECIMEN Ordering Facility: [facility] Address: [address] [id number] Performed By: #### 2 4323-8 #### [facility] CLIA [id number] [address] [place] [address] [place] ALT [Catalytic activity/Vol] 40 U/L Normal 10-54 [facility] Comment on above: Order Comment: Speci men Type: BLOOD SPECIMEN Ordering Facility: [facility] Address: [address] [place] [address] Performed By: #### 2 4323-8 #### [facility] CLIA [id number] [address] [place] [address] [place] Anion gap [Moles/Vol] 11 mmol/L Normal 8-15 [facility] Comment on above: Order Comment: Speci men Type: BLOOD SPECIMEN Ordering Facility: [facility] Address: [address] [place] [address] Performed By: #### 2 4323-8 #### [facility] CLIA [id number] [address] [place] [address] [place] AST [Catalytic activity/Vol] 23 U/L Normal 14-40 [facility] Comment on above: Order Comment: Speci men Type: BLOOD SPECIMEN Ordering Facility: [facility] Address: [address] [place], [place] [address] Performed By: #### 2 4323-8 #### [facility] CLIA [id number] [address] [place] [address] [place] Bilirubin [Mass/Vol] 0.3 mg/dL Normal 0.2-1.3 [facility] Comment on above: Order Comment: Speci men Type: BLOOD SPECIMEN Ordering Facility: [facility] Address: [address] [place], [place] [address] Performed By: #### 2 4323-8 #### [facility] CLIA [id number] [address] [id number] [address] [place] Calcium [Mass/Vol] 9.3 mg/dL Normal 8.5-10.2 [facility] Comment on above: Order Comment: Speci men Type: BLOOD SPECIMEN Ordering Facility: [facility] Address: [address] [place] [address] Performed By: #### 2 4323-8 #### [facility] CLIA [id number] [address] [place] [address] [place] Chloride [Moles/Vol] 105 mmol/L Normal 98-107 [facility] Comment on above: Order Comment: Speci men Type: BLOOD SPECIMEN Ordering Facility: [facility] Address: [address] [place] [address] Performed By: #### 2 4323-8 #### [facility] CLIA [id number] [address] [place] [address] [place] CO2 [Moles/Vol] 24 mmol/L Normal 22-30 [facility] Comment on above: Order Comment: Speci men Type: BLOOD SPECIMEN Ordering Facility: [facility] Address: [address] [place] [address] Performed By: #### 2 4323-8 #### [facility] CLIA [id number] [address] [place] [address] [place] Creatinine [Mass/Vol] 1.19 mg/dL Normal 0.73-1.22 [facility] Comment on above: Order Comment: Speci men Type: BLOOD SPECIMEN Ordering Facility: [facility] Address: [address] [place] [address] Performed By: #### 2 4323-8 #### [facility] CLIA [id number] [address] [place] [address] [place] Creatinine and Glomerular filtration rate.predicted panel (S/P/Bld) 67 mL/min/1.73m??? Normal >=60 [facility] Comment on above: Order Comment: Speci men Type: BLOOD SPECIMEN Ordering Facility: [facility] Address: [address] [place] [address] Result Comment: Talisha mated Glomerular Filtration Rate [...] actual GFR. Performed By: #### 2 4323-8 #### [facility] CLIA [id number] [address] [place] [address] [place] Glucose [Mass/Vol] 97 mg/dL Normal 74-99 [facility] Comment on above: Order Comment: Jeison parry Type: BLOOD SPECIMEN Ordering Facility: [facility] Address: [address] [place] [address] Result Comment: The [place] Diabetes Association (ADA) provides guidance for cutoff values for fasting glucose and random glucose. The ADA defines fasting as no caloric intake for at least 8 hours. Fasting plasma glucose results between 100 to 125 mg/dL indicate increased risk for diabetes (prediabetes). Fasting plasma glucose results greater than or equal to 126 mg/dL meet the criteria for diagnosis of diabetes. In the absence of unequivocal hyperglycemia, results should be confirmed by repeat testing. In a patient with classic symptoms of hyperglycemia or hyperglycemic crisis, random plasma glucose results greater than or equal to 200 mg/dL meet the criteria for diagnosis of diabetes. Reference: Standards of Medical Care in Diabetes 2016, [place] [employer] Association. Diabetes Care. 2016.39(Suppl 1). Performed By: #### 2 4323-8 #### [facility] CLIA [id number] [address] [place] [address] [place] Potassium [Moles/Vol] 4.7 mmol/L Normal 3.7-5.1 [facility] Comment on above: Order Comment: Jeison parry Type: BLOOD SPECIMEN Ordering Facility: [facility] Address: [address] [place], [place] [address] Performed By: #### 2 4323-8 #### [facility] CLIA [id number] [address] [place] [address] [place] Protein [Mass/Vol] 6.1 g/dL Low 6.3-8.0 [facility] Comment on above: Order Comment: Speci men Type: BLOOD SPECIMEN Ordering Facility: [facility] Address: [address] [place] [address] Performed By: #### 2 4323-8 #### [facility] CLIA [id number] [address] [place] [address] [place] Sodium [Moles/Vol] 140 mmol/L Normal 136-144 [facility] Comment on above: Order Comment: Speci men Type: BLOOD SPECIMEN Ordering Facility: [facility] Address: [address] [place] [address] Performed By: #### 2 4323-8 #### [facility] CLIA [id number] [address] [place] [address] [place] Urea nitrogen [Mass/Vol] 36 mg/dL High 9-24 [facility] Comment on above: Order Comment: Speci men Type: BLOOD SPECIMEN Ordering Facility: [facility] Address: [address] [place] [address] Performed By: #### 2 4323-8 #### [facility] CLIA [id number] [address] [place] [address] [place] ECG COMPLETEon 02-06-2024 ECG COMPLETE Ventricular Rate : 8 0 BPM QRS Duration : 186 ms Q-T Interval : 472 ms QTC Calculation(Bazett) : 544 ms Calculated R [place] : 226 degrees Calculated T [place] : 85 degrees ATRIAL FIBRILLATION WITH VENTRICULAR PACEMAKER RHYTHM ABNORMAL ECG Confirmed by MD GRUBBS TAMANNA ([id number]) on 03/06/2024 5:23:14 PM NAME : TRE QUIÑONES PID : [id number] : 1955 Gender : Male Race : ORD : [id number] Procedure Date : Feb 06 2024 07:59:47 Edit Date : Mar 06 2024 17:23:15 Diagnosis: ATRIAL FIBRILLATION WITH VENTRICULAR PACEMAKER RHYTHM ABNORMAL ECG Confirmed by MD GRUBBS TAMANNA ([id number]) on 03/06/2024 5:23:14 PM Test Reason : Location : 314 : J14 Overread By : MD GRUBBS TAMANNA Edited By : MD GRUBBS TAMANNA Referred By : Phillip DIAMOND Acquired by : NAGA VALDIVIA Normal [facility] XR CHEST 2V FRONTAL/LATon XR CHEST 2V FRONTAL/LAT * * *Final Repor t* * * DATE OF EXAM: Feb 06 2024 8:13AM JIX [id number] - XR CHEST 2V FRONTAL/LAT / PROCEDURE REASON: Surgery follow-up * * * * Physician Interpretation * * * * EXAMINATION: CHEST RADIOGRAPH (2 VIEW FRONTAL and LATERAL) CLINICAL HISTORY: Surgery follow-up MQ: [id number]_6 [...] changes are present within the thoracic spine. IMPRESSION: See result. Supervisor Engraving: [facility] Transcribe Date/Time: Feb 06 2024 2:34P Dictated by : CAROLYN ROBERTSON MD This examination was interpreted and the report reviewed and electronically signed by: CAROLYN ROBERTSON MD on Feb 06 2024 2:48PM EST [id number] Normal [facility] XR Chest PA and Lateralon IMPRESSION: See result. Supervisor Engraving: [facility] Transcribe Date/Time: Feb 06 2024 2:34P Dictated by : CAROLYN ROBERTSON MD This examination was interpreted and the report reviewed and electronically signed by: CAROLYN ROBERTSON MD on Feb 06 2024 2:48PM EST DIVISION OF RADIOLOGY * * *Final Report* * * DATE OF EXAM: Feb 06 2024 8:13AM KIMBERLY [id number] - XR CHEST 2V FRONTAL/LAT / [...] the thoracic spine. DIVISION OF RADIOLOGY Provider, [facility] - 02/06/2024 * * *Final Report* [...] the thoracic spine. IMPRESSION IMPRESSION: See result. Supervisor Engraving: [facility] Transcribe Date/Time: Feb 06 2024 2:34P Dictated by : CAROLYN ROBERTSON MD This examination was interpreted and the report reviewed and electronically signed by: CAROLYN ROBERTSON MD on Feb 06 2024 2:48PM [facility] Radiology Study observation (narrative) Jarad kitchen [facility] XR Chest PA and LateralOrder ed By: Ccf Provider on 02-06-2024 [facility] Candy 01-31-2024 CNPN Telephone (PODCCP) TRE QUIÑONES ([id number]) 1955 M Date Time Provider Department 01/31/24 BRODERICK NG During your visit today, we recorded the following information about you: Broderick Ng RN 01/31/2024 12:18 PM Signed 1. Have you noticed any increase in shortness of breath since you left the hospital? no 2. Have you noticed any increased swelling in your feet, ankles, or belly? Skip for vascular pts no 3. Have you gained more than 2-3 pounds since discharge? Skip for vascular AND EP pts no 4. Have you noticed [...] help filling your prescription? (Figure out why they?re not filled) Yes 8. Do you have any questions about your medications? No 9. Do you have a doctor?s appointment scheduled or is someone working on getting you a follow-up appointment? Yes Additional Comments: Pt instructed to contact 24-hour nurse hotline [phone] for any questions or concerns. Pt verbalized understanding. PD nurse confirmed/verified patient's and full name. All clear, closing statement given. Broderick Ng RN Allergies As of Date: 01/31/2024 Noted Allergy Reaction HYDROCHLOROTHIAZIDE 05/06/2021 14 - Other: See Comments Comments: Gout INFLUENZA VIRUS VACCINES 01/19/2024 14 - Other: See Comments Comments: Flu like illness POLLEN EXTRACTS 01/19/2024 9 - Itching Comments: Watery, red eyes and sneezing Date Reviewed: 01/29/2024 Reviewed by: Melida Eldridge RN - Fully Assessed Reason for Visit: Follow Up Phone Call [[phone]] Cmt: follow up call all clear. Prescriptions as of 01/31/2024 - lisinopril (ZESTRIL) 5 mg tablet Take 1 tablet by mouth once daily. - acetaminophen (TYLENOL) 325 mg tablet Take 1-2 tablets by mouth every 4 hours as needed for pain. - aspirin 81 mg chewable tablet Take 1 tablet by mouth once daily. - oxyCODONE IR (ROXICODONE) 5 mg immediate release tablet Take 1 tablet by mouth every 6 hours as needed for pain for up to 7 days. - polyethylene glycol 3350 17 gram packet Take 1 Packet by mouth once daily as needed for constipation. Dissolve dose in 4 - 8 ounces of liquid and take as directed. - senna-docusate (SENNA-S) 8.6-50 mg per tablet Take 1 tablet by mouth two times a day as needed for constipation. - albuterol (PROVENTIL) 2.5 mg /3 mL (0.083 %) nebulizer solution Inhale as instructed every 4 hours as needed. - amiodarone (PACERONE) 200 mg tablet Take 200 mg by mouth once daily. - amoxicillin (AMOXIL) 500 mg capsule TAKE 4 CAPSULES BY MOUTH ONE HOUR PRIOR TO DENTAL APPOINTMENT. - cholecalciferol (VITAMIN D3) 50 mcg (2,000 unit) tablet Take 50 mcg by mouth once daily. - empagliflozin (JARDIANCE) 25 mg tablet Take 12.5 mg by mouth daily with breakfast. - eplerenone (INSPRA) 25 mg tablet Take 12.5 mg by mouth once daily. - furosemide (LASIX) 20 mg tablet Take 20 mg by mouth once daily. - ipratropium 20 mcg-albuterol 100 mcg (COMBIVENT RESPIMAT) 20-100 mcg/actuation inhaler Inhale as instructed every 4 hours as needed. - metoprolol succinate ER (TOPROL XL) 50 mg 24 hr tablet Take 50 mg by mouth once daily. - rivaroxaban (XARELTO) 20 mg tablet Take 20 mg by mouth once daily. - diclofenac (VOLTAREN ARTHRITIS PAIN) 1 % topical gel Apply 2 g to affected area as needed. Problem List As Of Date 01/31/2024 Noted Resolved DERMATOPHYTOSIS OF GROIN [B35.6] 06/01/2006 DERMATOPHYTOSIS OF FOOT [B35.3] 06/01/2006 INTERTRIGO///ERYTHEMA TOUS COND NEC [L53.8] 06/01/2006 DERMATOPHYTOSIS OF NAIL [B35.1] 06/01/2006 DERMATITIS NOS [L25.9] 06/01/2006 Pre-op testing [Z01.818] 01/18/2024 Pre-op exam [Z01.818] 01/19/2024 Nonrheumatic mitral valve regurgitation [I34.0] 01/19/2024 BALDERAS (dyspnea on exertion) [R06.09] 01/19/2024 PAF (paroxysmal atrial fibrillation) ([facility]) [I48*01/19/2024 Mitral valve prolapse [I34.1] 01/19/2024 Postoperative pain [G89.18] 01/23/2024 On mechanically assisted ventilation ([facility]) [Z99*01/23/2024 Stress hyperglycemia [R73.9] 01/23/2024 Anxiety [F41.9] (more content not included)... Normal [facility] CARDIAC IMPLANTABLE DEVICE C HECKOrdered By: Kristofer Light on 01-23-2024 Battery Remaining Longevity 11.0 [facility] Work Phone: Battery Status KEVIN [facility] Work Phone: David Setting AT Mode Switch Rate 170 [facility] Work Phone: David Setting Lower Rate Limit 90 [facility] Work Phone: David Setting Maximum Sensor Rate 115 [facility] Work Phone: David Setting Maximum Tracking Rate 130 [facility] Work Phone: David Setting Mode (NBG Code) DDDR [facility] Work Phone: David Setting PAV Delay [address] [facility] Work Phone: David Setting NORIS Delay [address] [facility] Work Phone: Date Time Interrogation Session [facility] Work Phone: Implantable Lead Location Right Ventricle [facility] Work Phone: Implantable Lead Location Right Atrium [facility] Work Phone: Implantable Lead Model 7742 [facility] Work Phone: Implantable Lead Model 7741 [facility] Work Phone: Implantable Lead Serial Number [id number] [facility] Work Phone: Implantable Lead Serial Number [id number] [facility] Work Phone: Implantable Pulse Generator Implant Date [id number] [facility] Work Phone: Implantable Pulse Generator Residential Therapist [employer] [facility] Work Phone: Implantable Pulse Generator Model L111 [facility] Work Phone: Implantable Pulse Generator Serial Number [id number] [facility] Work Phone: Implantable Pulse Generator Type Pacemaker [facility] Work Phone: Lead Channel Impedance Value 594 [facility] Work Phone: Lead Channel Impedance Value 598 [facility] Work Phone: Lead Channel Pacing Threshold Amplitude 1.300 [facility] Work Phone: Lead Channel Pacing Threshold Amplitude 1.400 [facility] Work Phone: Lead Channel Pacing Threshold Pulse Width 0.9 [facility] Work Phone: Lead Channel Pacing Threshold Pulse Width 0.4 [facility] Work Phone: Lead Channel Sensing Intrinsic Amplitude 1.100 [facility] Work Phone: Lead Channel Sensing Intrinsic Amplitude 8.100 [facility] Work Phone: Lead Channel Setting Pacing Amplitude 3.000 [facility] Work Phone: Lead Channel Setting Pacing Amplitude 2.800 [facility] Work Phone: Lead Channel Setting Pacing Pulse Width 0.9 [facility] Work Phone: Lead Channel Setting Pacing Pulse Width 0.4 [facility] Work Phone: Lead Channel Setting Sensing Sensitivity 0.25 [facility] Work Phone: Lead Channel Setting Sensing Sensitivity 2.50 [facility] Work Phone: Rate 1 185 [facility] Work Phone: Zone ID 1 [facility] Work Phone: Zone ID 2 [facility] Work Phone: Zone ID 3 [facility] Work Phone: Zone Setting Type Category VF [facility] Work Phone: Zone Setting Type Category VT [facility] Work Phone: Zone Setting Type Category VT1 [facility] Work Phone: [facility] Work Phone: CARDIAC IMPLANTABLE DEVICE [place] 01-23-2024 Title: Hospital [facility] k * Patient was seen in hospital [...] Full Docket/PDF found below under Scanned Documents. Kristofer Sarabia MD - 01/23/2024 Title: Hospital Check * [...] Full Docket/PDF found below under Scanned Documents. [facility] No Panel InformationOrdered By: Kristofer Light on 01-23-2024 Implantable Lead Connection Status Connected [facility] Work Phone: Implantable Lead Implant Date [id number] [facility] Work Phone: Implantable Lead Residential Therapist [employer] [facility] Work Phone: Lead Channel Measurements Date and Time 2024-01-23 [facility] Work Phone: Zone Setting Status On [facility] Work Phone: CREATININE, BLOOD (POC)on Creatinine [Mass/Vol] 1.20 mg/dL 0.7 - 1.4 mg/dL [facility] eGFR (POCT) mL/min/1.73 m2 [facility] Location:Radiology [facility], [address] [place] [address], [id number] [facility] POINT OF CARE [facility] CTA Chest vessels and Abdomi nal vessels and Pelvis vessels W contrast David 01-19-2024 IMPRESSION: Moderate left atrial enlargement. The mitral valve leaflets are moderately thickened, somewhat redundant, but noncalcified. Normal thoracic and abdominal aorta. No acute aortic pathology identified. The pelvic arteries, including the common femoral arteries are normal in course, caliber, and contour. The minimal luminal caliber throughout = 12 mm Supervisor Engraving[facility] Transcribe Date/Time: Jan 19 2024 10:29A Dictated by : LUKE JOHNSON MD This examination was interpreted and the report reviewed and electronically signed by: LUKE JOHNSON MD on Jan 19 2024 10:47AM [facility] DIVISION OF RADIOLOGY * * *Final Report* [...] abdominal aorta. AORTIC ROOT: 3.2 cm measured [id number] mid ASCENDING THORACIC AORTA: 3.3 cm mid [...] changes of the thoracic and lumbar spine. Infection Control Manager (topogram) images: No additional findings. DIVISION OF RADIOLOGY Provider, Noah Olguin [facility] - 01/19/2024 * * *Final Report* * [...] abdominal aorta. AORTIC ROOT: 3.2 cm measured [id number] mid ASCENDING THORACIC AORTA: 3.3 cm mid [...] changes of the thoracic and lumbar spine. Infection Control Manager (topogram) images: No additional findings. IMPRESSION IMPRESSION: Moderate left atrial enlargement. The mitral valve leaflets are moderately thickened, somewhat redundant, but noncalcified. Normal thoracic and abdominal aorta. No acute aortic pathology identified. The pelvic arteries, including the common femoral arteries are normal in course, caliber, and contour. The minimal luminal caliber throughout = 12 mm Supervisor Engraving: [facility] Transcribe Date/Time: Jan 19 2024 10:29A Dictated by : LUKE JOHNSON MD This examination was interpreted and the report reviewed and electronically signed by: LUKE JOHNSON MD on Jan 19 2024 10:47AM EST [facility] Radiology Study observation (narrative) [facility] CTA Chest vessels and Abdomi nal vessels and Pelvis vessels W contrast IVOrdered By: Ccf Provider on 01-19-2024 [facility] XR Chest PA and Lateralon IMPRESSION: See Result. Supervisor Engraving: [facility] Transcribe Date/Time: Jan 19 2024 11:03A Dictated by : CONSTANTIN GREENE MD This examination was interpreted and the report reviewed and electronically signed by: CONSTANTIN GREENE MD on Jan 19 2024 11:04AM EST DIVISION OF RADIOLOGY * * *Final Report* [...] the thoracic spine. DIVISION OF RADIOLOGY Provider, [facility] - 01/19/2024 * * *Final Report* [...] the thoracic spine. IMPRESSION IMPRESSION: See Result. Supervisor Engraving: [facility] Transcribe Date/Time: Jan 19 2024 11:03A Dictated by : CONSTANTIN GREENE MD This examination was interpreted and the report reviewed and electronically signed by: CONSTANTIN GREENE MD on Jan 19 2024 11:04AM EST [facility] Radiology Study observation (narrative) Jarad [facility] XR Chest PA and LateralOrder ed By: Ccf Provider on 01-19-2024 [facility] XR CHEST PA+LAT 2 VIEWSon XR CHEST [...] permanent cardiac pacemaker. MACRO: None Normal [facility] [employer] XR Chest PA and Lateralon EXAMINATION: [...] cardiac pacemaker. MACRO: None RADIOLOGY Henri Sahni, - 07/10/2023 EXAMINATION: XR CHEST PA+LAT 2 [...] Dual-chamber permanent cardiac pacemaker. MACRO: None THE [employer] Work Phone: Radiology Study observation (narrative) [facility] [employer] Work Phone: XR Chest PA and LateralOrder ed By: Henri Sahni on 07-10-2023 [facility] Work Phone: Basophil percentageOrdered B y: Jerardo Monty on 03-29-2023 Basophil percentage < 1.0 mg/dL 0.70-1.30 [facility] No Panel InformationOrdered By: Jerardo Millan on 03-29-2023 Bedside Estimated GFR (eGFR) > 60.0000 mL/min >60 [facility] Basophil percentageOrdered B y: Sherif Kiser on 03-28-2023 Chloride [Moles/Vol] 109 mmol/L 98-107 [facility] Glucose [Mass/Vol] 81 mg/dL 74-106 [facility] Potassium [Moles/Vol] 4.2 mmol/L 3.5-5.1 [facility] Sodium [Moles/Vol] 142 mmol/L 136-145 [facility] WBC (Bld) [#/Vol] 7.0 10*3/uL 4.4-11.0 [facility] Blood erythrocytes count (nu mber/volume)Ordered By: Sherif Kiser on 03-28-2023 RBC (Bld) [#/Vol] 4.85 10*6/uL 4.6-6.2 [facility] Blood hemoglobin measurement (mass/volume)Ordered By: Sherif Kiser on 03-28-2023 Hemoglobin (Bld) [Mass/Vol] 14.3 g/dL 13.0-16.5 [facility] Blood platelet mean volumeOr dered By: Sherif Kiser on 03-28-2023 Platelet mean volume (Bld) [Entitic vol] 10.7 fL 6.2-12.0 [facility] Determination of erythrocyte mean corpuscular volume (MCV)Ordered By: Sherif Kiser on 03-28-2023 MCV (RBC) [Entitic vol] 89.3 fL 80-94 [facility] Hematocrit Auto (Bld) [Volum e fraction]Ordered By: Sherif Kiser on 03-28-2023 Hematocrit (Bld) [Volume fraction] 43.3 % 40-54 [facility] Laboratory - Chemistry and C hemistry - challengeOrdered By: Sherif Kiser on 03-28-2023 CO2 [Moles/Vol] 27.0 mmol/L 21.0-32.0 [facility] Urea nitrogen/Creatinine [Mass ratio] 25.0 mg/mg 10-20 [facility] Laboratory - Hematology and Cell countsOrdered By: Sherif Kiser on 03-28-2023 Erythrocyte distribution width (RBC) [Entitic vol] 43.2 fL 35.1-43.9 [facility] Erythrocyte distribution width (RBC) [Ratio] 13.2 % 11.6-14.6 [facility] MCH (RBC) [Entitic mass] 29.5 pg 27.0-32.0 [facility] MCHC Auto (RBC) [Mass/Vol]Or dered By: Sherif Kiser on 03-28-2023 MCHC (RBC) [Mass/Vol] 33.0 g/dL 32-36 [facility] No Panel InformationOrdered By: Sherif Kiser on 03-28-2023 Estimated GFR (MDRD) Amer 92 mL/min >60 [facility] Comment on above: GFR Calc Estimated GFR (MDRD) Non-Af Amer 76 mL/min >60 [facility] Comment on above: Non- GFR Calc No Panel InformationOrdered By: Jerardo Millan on 03-28-2023 Nasal Screen MRSA/MSSA [facility] Platelets bldOrdered By: Sherif Kiser on 03-28-2023 Platelets (Bld) [#/Vol] 222 10*3/uL 150-450 [facility] Serum or plasma calcium filiberto urement (mass/volume)Ordered By: Sherif Kiser on 03-28-2023 Calcium [Mass/Vol] 9.0 mg/dL 8.5-10.1 [facility] Serum or plasma creatinine m easurement (mass/volume)Ordered By: Sherif Kiser on 03-28-2023 Creatinine [Mass/Vol] 1.04 mg/dL 0.70-1.30 [facility] Comment on above: The validity of the calculated GFR & GFRAA in patients over 70 years has not been determined. Clinical correlation is essential. Serum or plasma urea nitroge n measurement (mass/volume)Ordered By: Sherif Kiser on 12-05-2023 Urea nitrogen [Mass/Vol] 26 mg/dL 7-18 [facility] Thin prep Papanicolaou smear with manual screeningOrdered By: Sherif Kiser on 03-28-2023 Thin prep Papanicolaou smear with manual screening 6 5-15 [facility] Absolute lymphocyte countOrd ered By: Jerardo Millan on 12-20-2022 Lymphocytes Auto (Unsp spec) [#/Vol] 1.71 10*3/uL 0.83-4.51 [facility] Basophil percentageOrdered B y: Jerardo Millan on 12-20-2022 Basophils/100 WBC (Bld) 0.8 % 0-1 [facility] Eosinophils/100 WBC (Bld) 0.8 % 0-5 [facility] Neutrophils (Bld) [#/Vol] 5.8 10*3/uL 2.0-7.7 [facility] Neutrophils/100 WBC (Bld) 68.6 % 47-70 [facility] WBC (Bld) [#/Vol] 8.5 10*3/uL 4.4-11.0 [facility] Basophil percentageOrdered B y: Juana Rodriguez on 12-20-2022 Chloride [Moles/Vol] 112 mmol/L 98-107 [facility] Glucose [Mass/Vol] 91 mg/dL 74-106 [facility] Potassium [Moles/Vol] 4.1 mmol/L 3.5-5.1 [facility] Sodium [Moles/Vol] 143 mmol/L 136-145 [facility] Blood erythrocytes count (nu mber/volume)Ordered By: Jerardo Millan on 12-20-2022 RBC (Bld) [#/Vol] 4.27 10*6/uL 4.6-6.2 [facility] Blood hemoglobin measurement (mass/volume)Ordered By: Jerardo Millan on 12-20-2022 Hemoglobin (Bld) [Mass/Vol] 12.9 g/dL 13.0-16.5 [facility] Blood lymphocytes/100 leukoc ytesOrdered By: Jerardo Millan on 12-20-2022 Lymphocytes/100 WBC (Bld) 20.1 % 19-41 [facility] Blood monocytes/100 leukocyt esOrdered By: Jerardo Millan on 12-20-2022 Monocytes/100 WBC (Bld) 9.5 % 0-10 [facility] Blood platelet mean volumeOr dered By: Jerardo Millan on 12-20-2022 Platelet mean volume (Bld) [Entitic vol] 11.5 fL 6.2-12.0 [facility] Determination of erythrocyte mean corpuscular volume (MCV)Ordered By: Jerardo Millan on 12-20-2022 MCV (RBC) [Entitic vol] 91.6 fL 80-94 [facility] Hematocrit Auto (Bld) [Volum e fraction]Ordered By: Jerardo Millan on 12-20-2022 Hematocrit (Bld) [Volume fraction] 39.1 % 40-54 [facility] Laboratory - Chemistry and C hemistry - challengeOrdered By: Juana Rodriguez on 12-20-2022 CO2 [Moles/Vol] 29.0 mmol/L 21.0-32.0 [facility] Urea nitrogen/Creatinine [Mass ratio] 20.7 mg/mg 10-20 [facility] Laboratory - Hematology and Cell countsOrdered By: Jerardo Millan on 12-20-2022 Erythrocyte distribution width (RBC) [Entitic vol] 46.1 fL 35.1-43.9 [facility] Erythrocyte distribution width (RBC) [Ratio] 13.6 % 11.6-14.6 [facility] Immature granulocytes/100 WBC (Bld) 0.200 % 0.0-0.9 [facility] Comment on above: IG% - Immature Granu locytes (promyelocytes, myelocytes and metamyelocytes) > 1% indicates that a LEFT SHIFT is Present. MCH (RBC) [Entitic mass] 30.2 pg 27.0-32.0 [facility] Nucleated RBC/100 WBC (Bld) [Ratio] 0 % 0-5 [facility] MCHC Auto (RBC) [Mass/Vol]Or dered By: Jerardo Millan on 12-20-2022 MCHC (RBC) [Mass/Vol] 33.0 g/dL 32-36 [facility] No Panel InformationOrdered By: Juana Rodriguez on 12-20-2022 Estimated Creatinine Clearance Calc 87.86 ml/min [facility] Estimated GFR (MDRD) Amer 106 mL/min >60 [facility] Comment on above: GFR Calc Estimated GFR (MDRD) Non-Af Amer 88 mL/min >60 [facility] Comment on above: Non- GFR Calc Platelets bldOrdered By: Wang Millan on 12-20-2022 Platelets (Bld) [#/Vol] 194 10*3/uL 150-450 [facility] Serum or plasma calcium filiberto urement (mass/volume)Ordered By: Juana Rodriguez on 12-20-2022 Calcium [Mass/Vol] 8.8 mg/dL 8.5-10.1 [facility] Serum or plasma creatinine m easurement (mass/volume)Ordered By: Juana Rodriguez on 12-20-2022 Creatinine [Mass/Vol] 0.92 mg/dL 0.70-1.30 [facility] Comment on above: The validity of the calculated GFR & GFRAA in patients over 70 years has not been determined. Clinical correlation is essential. Serum or plasma urea nitroge n measurement (mass/volume)Ordered By: Juana Rodriguez on 12-20-2022 Urea nitrogen [Mass/Vol] 19 mg/dL 7-18 [facility] Thin prep Papanicolaou smear with manual screeningOrdered By: Juana Rodriguez on 12-20-2022 Thin prep Papanicolaou smear with manual screening 2 5-15 [facility] Basophil percentageOrdered B y: Asad Mcdonough on 12-19-2022 Bilirubin [Mass/Vol] 0.60 mg/dL 0.20-1.00 [facility] Comment on above: For patients on eltr ombopag therapy, use of Dimension [place] TBIL is not recommended. Protein [Mass/Vol] 7.3 g/dL 6.4-8.2 [facility] Laboratory - Chemistry and C hemistry - challengeOrdered By: Asad Mcdonough on 12-19-2022 ALP [Catalytic activity/Vol] 53 U/L 45-117 [facility] ALT [Catalytic activity/Vol] 31 U/L 16-61 [facility] Globulin (S) [Mass/Vol] 3.1 g/dL 2.2-4.2 [facility] Serum or plasma albumin filiberto urement (mass/volume)Ordered By: Asad Mcdonough on 12-19-2022 Albumin [Mass/Vol] 4.2 g/dL 3.2-5.0 [facility] Serum or plasma albumin/glob ulin mass ratioOrdered By: Asad Mcdonough on 12-19-2022 Albumin/Globulin [Mass ratio] 1.4 {ratio} 0.9-2.4 [facility] Thin prep Papanicolaou smear with manual screeningOrdered By: Asad Mcdonough on 12-19-2022 Thin prep Papanicolaou smear with manual screening 14 U/L 15-37 [facility] COVID-19/INFLUENZA A,B MOLEC ULARon 03-07-2021 SARS-CoV-2 (COVID-19) Ab IA Ql SARS-COV-2 (ROXIE): Not Detected INFLUENZA A (ROXIE): Not Detected INFLUENZA B (ROXIE): Not Detected Normal Not Detected [facility] Comment on above: Order Comment: This test [...] at the following links: For Healthcare Providers: https://www.fda.gov/media/079762/download For Patients: https://www.fda.gov/media/396575/download Performed By: #### L [id number] #### [facility] [address] [place], [place] [address] Chiki Arreguin M[address]D. [id number] CT HEAD OR BRAIN WITHOUT CON TRASTon [...] ID: [id number] Dictated by: SHALINI KHAN on [place] Mar 07, 2021 3:32:39 PM EST Transcribed by: SHALINI KHAN on [place] Mar 07, 2021 3:32:39 PM EST Finalized by: SHALINI KHAN on [place] Mar 07, 2021 3:32:39 PM EST Normal [facility] Comment on above: Order Comment: Injur y/Trauma or Illness?:Illness/Other How long have you had these symptoms (acute/chronic)?:Acute Reason for exam?:dizziness Type of Exam?:Initial Additional signs and symptoms?:n/a MAGNESIUMon 12-09-2020 Magnesium [Mass/Vol] 2.2 mg/dL Normal 1.6-2.6 [facility] Comment on above: Performed By: #### M GO #### [facility] (DEFAULT) [address] [address] T4 FREEon 12-09-2020 Free T4 [Mass/Vol] 1.37 ng/dL Normal 0.89-1.76 [facility] Comment on above: Performed By: #### F T4, TSH #### [facility] (DEFAULT) [address] [address] TSHon 12-09-2020 TSH 0.649 uIU/mL Normal 0.550-4.780 [facility] Comment on above: Performed By: #### F T4, TSH #### [facility] (DEFAULT) [address] [place] [address] ALK PHOSPHATASEon 06-02-2020 ALP [Catalytic activity/Vol] 47 U/L Normal 32-126 [facility] Comment on above: Performed By: #### A LP #### [facility] (DEFAULT) [address] [place] [address] CHEM 6 (LYTES, BUN CREA)on 0 06-02-2020 Anion gap [Moles/Vol] 12 mmol/L Normal 7-17 [facility] Comment on above: Performed By: #### C HM6, ALTO, HFP, MGO #### [facility] (DEFAULT) [address] [place] [address] Chloride [Moles/Vol] 107 mmol/L Normal 98-108 [facility] Comment on above: Performed By: #### C HM6, ALTO, HFP, MGO #### [facility] (DEFAULT) [address] [place] [address] CO2 [Moles/Vol] 27 mmol/L Normal 22-30 [facility] Comment on above: Performed By: #### C HM6, ALTO, HFP, MGO #### [facility] (DEFAULT) [address] [place] [address] Creatinine [Mass/Vol] 1.10 mg/dL Normal 0.70-1.30 [facility] Comment on above: Performed By: #### C HM6, ALTO, HFP, MGO #### [facility] (DEFAULT) [address] [place] [address] EST GFR, >=60 Normal >=60 [facility] Comment on above: Performed By: #### C HM6, ALTO, HFP, MGO #### [facility] (DEFAULT) [address] [place] [address] EST GFR,Non >=60 Normal >=60 [facility] Comment on above: Performed By: #### C HM6, ALTO, HFP, MGO #### [facility] (DEFAULT) [address] [place] [address] Potassium [Moles/Vol] 4.4 mmol/L Normal 3.5-5.0 [facility] Comment on above: Performed By: #### C HM6, ALTO, HFP, MGO #### [facility] (DEFAULT) [address] [place] [address] Sodium [Moles/Vol] 142 mmol/L Normal 133-143 [facility] Comment on above: Performed By: #### C HM6, ALTO, HFP, MGO #### [facility] (DEFAULT) [address] [place] [address] Urea nitrogen [Mass/Vol] 21 mg/dL Normal 7-22 [facility] Comment on above: Performed By: #### C HM6, ALTO, HFP, MGO #### [facility] (DEFAULT) [address] [place] [address] Urea nitrogen/Creatinine [Mass ratio] 19 mg/mg Normal [facility] Comment on above: Performed By: #### C HM6, ALTO, HFP, MGO #### [facility] (DEFAULT) [address] [place] [address] HEPATIC FUNCTION PANELon Albumin [Mass/Vol] 4.6 g/dL Normal 3.5-5.0 [facility] Comment on above: Performed By: #### C HM6, ALTO, HFP, MGO #### [facility] (DEFAULT) [address] [place] [address] ALP [Catalytic activity/Vol] 46 U/L Normal 32-126 [facility] Comment on above: Performed By: #### C HM6, ALTO, HFP, MGO #### [facility] (DEFAULT) [address] [place] [address] ALT [Catalytic activity/Vol] 30 U/L Normal 10-52 [facility] Comment on above: Performed By: #### C HM6, ALTO, HFP, MGO #### [facility] (DEFAULT) [address] [place] [address] AST [Catalytic activity/Vol] 25 U/L Normal 14-40 [facility] Comment on above: Performed By: #### C HM6, ALTO, HFP, MGO #### [facility] (DEFAULT) [address] [place] [address] Bilirubin [Mass/Vol] 0.5 mg/dL Normal <1.5 [facility] Comment on above: Performed By: #### C HM6, ALTO, HFP, MGO #### [facility] (DEFAULT) [address] [place] [address] Bilirubin.indirect [Mass/Vol] 0.1 mg/dL Normal <0.3 [facility] Comment on above: Performed By: #### C HM6, ALTO, HFP, MGO #### [facility] (DEFAULT) [address] [place] [address] Protein [Mass/Vol] 6.8 g/dL Normal 6.4-8.3 [facility] Comment on above: Performed By: #### C HM6, ALTO, HFP, MGO #### [facility] (DEFAULT) [address] [place] [address] MAGNESIUMon 06-02-2020 Magnesium [Mass/Vol] 2.3 mg/dL Normal 1.6-2.6 [facility] Comment on above: Performed By: #### C HM6, ALTO, HFP, MGO #### [facility] (DEFAULT) [address] [place] [address] T4 FREEon 06-02-2020 Free T4 [Mass/Vol] 1.24 ng/dL Normal 0.89-1.76 [facility] Comment on above: Performed By: #### F T4 #### [facility] (DEFAULT) [address] [place] [address] TSHon 06-02-2020 TSH 0.538 uIU/mL Low 0.550-4.780 [facility] Comment on above: Performed By: #### T #### [facility] (DEFAULT) [address] [place] [address] XR CHEST PA AND LATERALon XR CHEST [...] appears unchanged from December 01, 2017. Normal [facility] ECHOCARDIOGRAMon 05-26-2020 Echocardiography ? Technically difficult study. [...] There is no pericardial effusion present. Facility [facility] Patient Information Patient Name Tre Quiñones Sex [...] - Reading 05/26/2020 Eleuterio Santillan MD Echo [place] 05/26/2020 Wall Scoring Score Index: 1.00 The [...] include patient body habitus. Imaging system used: [employer]. Indications for study: dyspnea. Exam Details Performed Procedure Technologist Supporting Staff Performing Physician ECHOCARDIOGRAM W/O 3D W/CONTRAST Samanta Amin RDCS Appointment Date/Status Modality Department 05/26/2020 Arrived ECHO TESTING, [facility] ECHOCARDIOGRAPHY ROSS (more content not included)... Abnormal [facility] NUC MYOCARD PERF STRESS MIBI PHARMon 05-26-2020 [...] Intravenous device wires are noted. Facility [facility] Patient Information Patient Name Tre Quiñones Sex [...] Role Read Date Jimenez Burrell MD ECG [place], SPECT [place], Fellow - [place] 05/26/2020 Min Bae MD Test Claim Rep, ECG [place], SPECT [place] 05/26/2020 Stress Measurements Baseline Vitals-Supine Baseline HR [...] intensity. The (more content not included)... Normal [facility] Office Visiton 09-07-2016 Documentation of current medications (procedure) Done Invalid Interpretation Code [facility] Work Phone: Tobacco smoking status NHIS Former smoker [facility] Work Phone: Tobacco use CPHS Former smoker Invalid Interpretation Code [facility] Work Phone: Lab Report: BMPon 11-30-2012 Calcium 9.1 mg/dL Normal 8.5-10.1 [facility] Work Phone: Chloride 105 mmol/L Normal 98-107 [facility] Work Phone: Creatinine 0.8 mg/dL Normal 0.8-1.3 [facility] Work Phone: Glucose 80 mg/dL Normal 70-110 [facility] Work Phone: Glucose [Mass/Vol] 80 mg/dL Normal 70-110 [facility] Work Phone: Potassium 4.2 mmol/L Normal 3.5-5.1 [facility] Work Phone: Sodium 141 mmol/L Normal 136-145 [facility] Work Phone: Urea nitrogen 21 mg/dL High 7-18 [facility] Work Phone: Lab Report: BTNPon 3 BTNP 26.9 pg/mL Normal <100 [facility] Work Phone: GE use only - for [employer]ic import when terms are not otherwise specified 26.9 pg/mL Normal <100 [facility] Work Phone: Lab Report: CBCon 11-30-2012 Erythrocytes (RBC) 4.97 10*6/uL Normal 4.6-6.2 [facility] Work Phone: Hematocrit (Bld) [Volume fraction] 42.8 % Normal 40-54 [facility] Work Phone: Hematocrit (HCT) 42.8 % Normal 40-54 [facility] Work Phone: Hemoglobin (HGB) 14.6 g/dL Normal 13.0-16.5 [facility] Work Phone: Platelets 187 10*3/mm3 Normal 150-450 [facility] Work Phone: Platelets (Bld) [#/Vol] 187 10*3/mm3 Normal 150-450 [facility] Work Phone: RBC (Bld) [#/Vol] 4.97 10*6/uL Normal 4.6-6.[address] [address] [place] [facility] Work Phone: WBC (Bld) [#/Vol] 6.8 10*3/uL Normal 4.4-11.0 [facility] [place] [facility] Work Phone: WBC (Leukocytes) 6.8 10*3/uL Normal 4.4-11.0 [facility] [place] [facility] Work Phone: Lab Report: TSHon 11-30-2012 Thyroid stimulating hormone (TSH) 0.96 u[iU]/mL Normal 0.358-3.74 [facility] Work Phone: Office Visit: [facility] 12-01-19 13 Documentation of current medications (procedure) Done Invalid Interpretation Code [facility] Work Phone: Replaced Document: Chavo Sarmiento CG Observationson 11-30-2012 EKG QRS axis -4 deg [facility] Work Phone: electrocardiogram interpretation Sinus Rhythm WITHIN NORMAL LIMITS Invalid Interpretation Code [facility] Work Phone: Interpretation Sinus Rhythm WITHIN NORMAL LIMITS [facility] Work Phone: P [place] 41 deg [facility] Work Phone: P wave axis, electrocardiogram 41 deg Invalid Interpretation Code [facility] Work Phone: SC Interval 184 ms [facility] Work Phone: SC interval, electrocardiogram 184 ms Invalid Interpretation Code [facility] Work Phone: Pulse (Heart Rate) 398 ms Invalid Interpretation Code [facility] Work Phone: Pulse (Heart Rate) 78 /min Invalid Interpretation Code [facility] Work Phone: QRS axis, electrocardiogram -4 deg Invalid Interpretation Code [facility] Work Phone: QRS Duration 98 ms [facility] Work Phone: QRS duration, electrocardiogram 98 ms Invalid Interpretation Code [facility] Work Phone: QT Interval new path ms [facility] Work Phone: QT interval, electrocardiogram new path ms Invalid Interpretation Code [facility] Work Phone: T [place] 22 deg [facility] Work Phone: T wave axis, electrocardiogram 22 deg Invalid Interpretation Code [facility] Work Phone: Clinical 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 Anion gap 5 mmol/L Invalid Interpretation Code [facility] Work Phone: Anion gap [Moles/Vol] 5 mmol/L [facility] Work Phone: BUN/Creatinine Ratio 14.4 mg/mg Invalid Interpretation Code [facility] Work Phone: CO2 29.0 mmol/L Invalid Interpretation Code [facility] Work Phone: CO2 (BldV) [Partial pressure] 29.0 mmol/L [facility] Work Phone: MCH 30.8 pg Invalid Interpretation Code [facility] Work Phone: MCH (RBC) [Entitic mass] 30.8 pg [facility] Work Phone: MCV 86.8 fL Invalid Interpretation Code [facility] Work Phone: MCV (RBC) [Entitic vol] 86.8 fL [facility] Work Phone: Clinical 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 01-27-2025 09:26-0400 Body weight 146.[address] [facility] 01-26-2025 11:52-0400 Body temperature 98.5 [degF] [facility] 01-26-2025 11:52-0400 Diastolic blood pressure 79 mm[Hg] [facility] 01-26-2025 11:52-0400 Heart rate 85 /min [facility] 01-26-2025 11:52-0400 Respiratory rate 18 /min [facility] 01-26-2025 11:52-0400 SaO2% (BldA) [Mass fraction] 94 % [facility] 01-26-2025 11:52-0400 Systolic blood pressure 164 mm[Hg] [facility] 01-26-2025 03:51-0400 Body mass index (BMI) [Ratio] 42.7 kg/m2 [facility] 01-26-2025 03:51-0400 Body weight 143.[address] [facility] 01-25-2025 23:00-0400 Inhaled oxygen concentration 21 % [facility] 01-25-2025 18:45-0400 Inhaled oxygen flow rate 2 L/min [facility] 01-24-2025 08:36-0400 Body mass index (BMI) [Ratio] 43.7 kg/m2 [facility] 01-13-2025 13:46-0400 Body height 182.[address] [facility] 01-13-2025 13:46-0400 Body mass index (BMI) [Ratio] 43.7 kg/m2 [facility] 01-13-2025 13:46-0400 Body weight 146.[address] [facility] 01-13-2025 13:46-0400 Diastolic blood pressure 75 mm[Hg] [facility] 01-13-2025 13:46-0400 Heart rate 60 /min [facility] 01-13-2025 13:46-0400 Respiratory rate 16 /min [facility] 01-13-2025 13:46-0400 Systolic blood pressure 122 mm[Hg] [facility] 12-16-2024 15:23-0400 Body height 183 cm Broderick Bundy MD Work Phone: [facility] 12-16-2024 15:23-0400 Body height 182.88 cm Broderick Bundy MD Work Phone: [facility] 12-16-2024 15:23-0400 Body mass index (BMI) [Ratio] 42.2 kg/m2 Broderick Bundy MD Work Phone: [facility] 12-16-2024 15:23-0400 Body weight 141 kg Broderick Bundy MD Work Phone: [facility] 12-16-2024 15:23-0400 Body weight 140.62 kg Broderick Bundy MD Work Phone: [facility] 12-16-2024 15:23-0400 Diastolic blood pressure 66 mm[Hg] Broderick Bundy MD Work Phone: [facility] 12-16-2024 15:23-0400 HGHTCHNVIS Broderick Bundy MD Work Phone: [facility] 12-16-2024 15:23-0400 Systolic blood pressure 114 mm[Hg] Broderick Bundy MD Work Phone: [facility] 12-16-2024 15:23-0400 VITALSDONE Broderick Bundy MD Work Phone: [facility] 12-12-2024 11:15-0400 Diastolic blood pressure 90 mm[Hg] Mri Bore/1.5t) [facility] 12-12-2024 11:15-0400 Heart rate 70 /min Mri Bore/1.5t) [facility] 12-12-2024 11:15-0400 Respiratory rate 15 /min Mri Bore/1.5t) [facility] 12-12-2024 11:15-0400 SaO2% (BldA) [Mass fraction] 96 % Mri Bore/1.5t) [facility] 12-12-2024 11:15-0400 Systolic blood pressure 126 mm[Hg] Mri Bore/1.5t) [facility] 11-01-2024 08:48-0400 Diastolic blood pressure 64 mm[Hg] Denny Cifuentes MD Work Phone: [facility] 11-01-2024 08:48-0400 Heart rate 60 /min Denny Cifuentes MD Work Phone: [facility] 11-01-2024 08:48-0400 Systolic blood pressure 129 mm[Hg] Denny Cifuentes MD Work Phone: [facility] 09-18-2024 11:55-0400 Body height 182.[address] Omer Wray MD Work Phone: [facility] 09-18-2024 11:55-0400 Body mass index (BMI) [Ratio] 44.4 kg/m2 Dr. Omer Wray MD Work Phone: [facility] 09-18-2024 11:55-0400 Body weight 148.[address] Omer Wray MD Work Phone: [facility] 09-18-2024 11:55-0400 Diastolic blood pressure 76 mm[Hg] Dr. Omer Wray MD Work Phone: [facility] 09-18-2024 11:55-0400 Heart rate 66 /min Dr. Omer Wray MD Work Phone: [facility] 09-18-2024 11:55-0400 Respiratory rate 20 /min Dr. Omer Wray MD Work Phone: [facility] 09-18-2024 11:55-0400 Systolic blood pressure 136 mm[Hg] Dr. Omer Wray MD Work Phone: [facility] 08-13-2024 13:06-0400 Body temperature 98.1 [degF] Dr. Omer Wray MD Work Phone: [facility] 08-13-2024 13:06-0400 Diastolic blood pressure 55 mm[Hg] Dr. mOer Wray MD Work Phone: [facility] 08-13-2024 13:06-0400 Heart rate 60 /min Dr. Omer Wray MD Work Phone: [facility] 08-13-2024 13:06-0400 Respiratory rate 15 /min Dr. Omer Wray MD Work Phone: [facility] 08-13-2024 13:06-0400 SaO2% (BldA) [Mass fraction] 96 % Dr. Omer Wray MD Work Phone: [facility] 08-13-2024 13:06-0400 Systolic blood pressure 141 mm[Hg] Dr. Omer Wray MD Work Phone: [facility] 08-13-2024 11:38-0400 Body mass index (BMI) [Ratio] 42.8 kg/m2 Dr. Omer Wray MD Work Phone: [facility] 08-13-2024 11:38-0400 Body weight 143.[address] Omer Wray MD Work Phone: [facility] 02-06-2024 08:54-0400 Body height 182.9 cm Liz Madsen APRN.SAW FEEDER Work Phone: [facility] 02-06-2024 08:54-0400 Body mass index (BMI) [Ratio] 43.67 kg/m2 Liz Madsen CARBON CLEANER.SAW FEEDER Work Phone: [facility] 02-06-2024 08:54-0400 Body temperature 99.1 [degF] Liz Madsen APRN.SAW FEEDER Work Phone: [facility] 02-06-2024 08:54-0400 Body weight 146.06 kg Andegoni Sandalakis [employer]BON CLEANER.SAW FEEDER Work Phone: [facility] 02-06-2024 08:54-0400 Diastolic blood pressure 56 mm[Hg] Andegoni Sandalakis [employer] CLEANER.SAW FEEDER Work Phone: [facility] 02-06-2024 08:54-0400 Heart rate 70 /min Andegoni Sandalakis [employer]BON CLEANER.SAW FEEDER Work Phone: [facility] 02-06-2024 08:54-0400 Respiratory rate 16 /min Andegoni Sandalakis [employer] CLEANER.SAW FEEDER Work Phone: [facility] 02-06-2024 08:54-0400 SaO2% (BldA) [Mass fraction] 95 % Andegoni Sandalakis [employer] CLEANER.SAW FEEDER Work Phone: [facility] 02-06-2024 08:54-0400 Systolic blood pressure 105 mm[Hg] Andegoni Sandalakis [employer] CLE[employer]ER.SAW FEEDER Work Phone: [facility] 01-19-2024 12:29-0400 Diastolic blood pressure 60 mm[Hg] Moiz Koenig MD Work Phone: [facility] 01-19-2024 12:29-0400 Systolic blood pressure 108 mm[Hg] Moiz Koenig MD Work Phone: [facility] 01-19-2024 12:26-0400 Body height 182.9 cm Moiz Koenig MD Work Phone: [facility] 01-19-2024 12:26-0400 Body mass index (BMI) [Ratio] 43.13 kg/m2 Moiz Koenig MD Work Phone: [facility] 01-19-2024 12:26-0400 Body weight 144.24 kg Moiz Koenig MD Work Phone: [facility] 01-19-2024 12:26-0400 Heart rate 60 /min Moiz Koenig MD Work Phone: [facility] 01-19-2024 12:26-0400 Respiratory rate 12 /min Moiz Koenig MD Work Phone: [facility] 01-19-2024 12:26-0400 SaO2% (BldA) [Mass fraction] 95 % Moiz Koenig MD Work Phone: [facility] 04-03-2023 12:50-0500 Body temperature 97.8 [degF] Dr. Asad Mcdonough Work Phone: [facility] 04-03-2023 12:50-0500 Diastolic blood pressure 84 mm[Hg] Dr. Asad Mcdonough Work Phone: [facility] 04-03-2023 12:50-0500 Heart rate 78 /min Dr. Asad Mcdonough Work Phone: [facility] 04-03-2023 12:50-0500 Respiratory rate 14 /min Dr. Asad Mcdonough Work Phone: [facility] 04-03-2023 12:50-0500 SaO2% (BldA) [Mass fraction] 97 % Dr. Asad Mcdonough Work Phone: [facility] 04-03-2023 12:50-0500 Systolic blood pressure 126 mm[Hg] Dr. Asad Mcdonough Work Phone: [facility] 04-03-2023 12:00-0500 Inhaled oxygen flow rate 3 L/min Dr. Asad Mcdonough Work Phone: [facility] 04-03-2023 06:24-0500 Body height 182.[address] Asad Mcdonough Work Phone: [facility] 04-03-2023 06:24-0500 Body mass index (BMI) [Ratio] 41.6 kg/m2 Dr. Asad Mcdonough Work Phone: [facility] 04-03-2023 06:24-0500 Body weight 139.[address] Asad Mcdonough Work Phone: [facility] 03-22-2023 08:22-0500 Body mass index (BMI) [Ratio] 41.8 kg/m2 Dr. Asad Mcdonough Work Phone: [facility] 03-22-2023 08:22-0500 Body temperature 97.4 [degF] Dr. Asad Mcdonough Work Phone: [facility] 03-22-2023 08:22-0500 Body weight 139.[address] Asad Mcdonough Work Phone: [facility] 03-22-2023 08:22-0500 Diastolic blood pressure 70 mm[Hg] Dr. Asad Mcdonough Work Phone: [facility] 03-22-2023 08:22-0500 Heart rate 60 /min Dr. Asad Mcdonough Work Phone: [phone] [place] [address] 03-22-2023 08:22-0500 Respiratory rate 18 /min Dr. Asad Mcdonough Work Phone: [facility] 03-22-2023 08:22-0500 SaO2% (BldA) [Mass fraction] 96 % Dr. Asad Mcdonough Work Phone: [facility] 03-22-2023 08:22-0500 Systolic blood pressure 131 mm[Hg] Dr. Asad Mcdonough Work Phone: [facility] 01-03-2023 13:45-0400 Body weight 138.[address] Asad Mcdonough Work Phone: [facility] 12-20-2022 13:58-0400 Body temperature 99.1 [degF] Dr. Asad Mcdonough Work Phone: [facility] 12-20-2022 13:58-0400 Diastolic blood pressure 62 mm[Hg] Dr. Asad Mcdonough Work Phone: [facility] 12-20-2022 13:58-0400 Heart rate 59 /min Dr. Asad Mcdonough Work Phone: [facility] 12-20-2022 13:58-0400 Respiratory rate 16 /min Dr. Asad Mcdonough Work Phone: [facility] 12-20-2022 13:58-0400 SaO2% (BldA) [Mass fraction] 94 % Dr. Asad Mcdonough Work Phone: [facility] 12-20-2022 13:58-0400 Systolic blood pressure 111 mm[Hg] Dr. Asad Mcdonough Work Phone: [facility] 12-20-2022 04:37-0400 Inhaled oxygen flow rate 2 L/min Dr. Asad Mcdonough Work Phone: [facility] 12-19-2022 20:59-0400 Body height 182.[address] Asad Mcdonough Work Phone: [facility] 12-19-2022 16:57-0400 Body mass index (BMI) [Ratio] 41.9 kg/m2 Dr. Asad Mcdonough Work Phone: [facility] 12-19-2022 16:57-0400 Body weight 140.[address] Asad Mcdonough Work Phone: [facility] 09-07-2016 15:07-0400 BMI (Body Mass Index) 43.67 kg/m2 Birdie BAER [facility] Work Phone: 09-07-2016 15:07-0400 Body weight 146.06 kg Birdie Radha [facility] Work Phone: 09-07-2016 15:07-0400 Weight 146.06 kg Birdie Radha [facility] Work Phone: 11-30-2012 13:09-0400 Heart rate 78 /min Birdie Radha [facility] Work Phone: 11-30-2012 13:09-0400 Heart rate 398 ms [facility] Work Phone: 11-30-2012 13:01-0400 BMI (Body Mass Index) 40.29 kg/m2 [facility] Work Phone: 11-30-2012 13:01-0400 BP Diastolic 90 mm[Hg] [facility] Work Phone: 11-30-2012 13:01-0400 BP Systolic 122 mm[Hg] [facility] Work Phone: 11-30-2012 13:01-0400 Pulse (Heart Rate) 78 /min [facility] Work Phone: 11-30-2012 13:01-0400 Respiratory Rate 20 /min [facility] ter [facility] Work Phone: 11-30-2012 13:01-0400 Weight 134.27 kg [facility] Work Phone: 06-22-2011 14:05-0500 Body Temperature 98.9 [degF] [facility] Work Phone: 06-22-2011 14:05-0500 BSA (Body Surface Area) 2.51 m2 [facility] Work Phone: 06-22-2011 14:05-0500 Pulse Oximetry 95 % [facility] Work Phone: 05-30-2011 13:44-0500 Height 182.88 cm [facility] Work Phone: Encounters Encounter Date Encounter Type Care Provider Facility Start: 02-11-2025 End: 02-11-2025 [facility] Facility:[facility] Start: 02-11-2025 End: 02-11-[address] Omer Wray MD -[facility] Work Phone: Start: 2025 End: 2025 [facility] Facility:[facility] Start: 2025 End: [address] [facility] Work Phone: Start: 01-27-2025 End: 01-27-2025 Admission to same day surgery center Dr. Omer Wray MD -[employer] [facility]/Special Procedures Work Phone: Start: 01-27-2025 End: 01-27-2025 [facility] Start: 01-26-2025 Non-patient / Non-visit Dr. Juana christopher MD -[facility] Work Phone: Start: 01-25-2025 [facility] Facility:[facility] Start: 01-25-2025 End: 01-26-2025 Evaluation and management of inpatient Dr. Juana Rodriguez MD -Progressive Care Unit Work Phone: Start: 01-18-2025 End: 01-18-2025 [facility] Start: 01-18-2025 End: 01-18-[address] [facility] Work [facility]: Start: 01-14-2025 End: 01-14-2025 [facility] Start: 01-14-2025 End: 01-14-[address] [facility] Work Phone: Start: 01-13-2025 End: 01-13-2025 [facility] Work Phone: Start: 01-13-2025 End: 01-13-2025 [facility] Start: 12-19-2024 End: 12-19-2024 [facility] Start: 12-19-2024 End: 12-19-[address] [facility] Work Phone: Start: 12-16-2024 Visit out of hours Broderick banegas MD Work Phone: [employer] Work Phone: Start: 12-16-2024 In-person encounter Broderick gomez MD Work Phone: [facility] Work Phone: Start: 12-12-2024 ambulatory OMER WRAY Facility: [facility] Start: 12-12-2024 End: 12-12-2024 Subsequent hospital visit by physician M[facility] (I-Stat/Lg Bore/1.5t) [facility] Start: 11-01-2024 End: 11-01-2024 Office outpatient visit 25 minutes Denny Cifuentes MD Work Phone: [facility] Comment on above: Erectile dysfunction , unspecified erectile dysfunction type (Primary Dx) Start: 11-01-2024 End: 11-01-2024 Orders Only Denny Cifuentes MD Work Phone: [facility] Comment on above: Erectile dysfunction , unspecified erectile dysfunction type (Primary Dx) Start: 10-24-2024 End: 10-24-[address] Qamar Carroll Work Phone: -Cardiovascular Services Start: 10-24-2024 End: 10-24-2024 Patient encounter procedure Evelyn Deleon SAP PPM CONSULTANT-C -Cardiovascular Services Work Phone: Start: 10-24-2024 ambulatory [facility] Facility:[facility] Start: 10-24-2024 Non-patient / Non-visit Dr. Handy UGALDE -[facility] Start: 10-24-2024 End: 10-24-2024 ambulatory Evelyn Deleon NP Facility:[facility] Start: 09-19-2024 End: 09-19-[address] Omer Wray MD Work Phone: [facility] Work Phone: Start: 09-19-2024 End: 09-19-[address] Omer Wray MD -[facility] Work Phone: Start: 09-18-2024 End: 09-18-[address] Omer Wray MD Work Phone: [facility] Work Phone: Start: 09-18-2024 End: 09-18-2024 Patient encounter procedure Evelyn Deleon SAP PPM CONSULTANT-C -Laboratory Work Phone: Start: 09-18-2024 End: 09-18-2024 Patient encounter procedure Evelyn Deleon SAP PPM CONSULTANT-C -[facility] Work Phone: Start: 09-18-2024 End: 09-18-[address] Omer Wray MD Work Phone: [facility] Work Phone: Start: 09-18-2024 End: 09-18-2024 ambulatory Evelyn Deleon SAP PPM CONSULTANT Facility:[facility] Start: 08-13-2024 End: 08-13-2024 Emergency department patient visit Dr. Qamar Rosario DO -Emergency Department Work Phone: Start: 06-13-2024 End: 06-13-2024 ambulatory [facility] Facility:[facility] Start: 06-13-2024 End: 06-13-[address] Omer Wray MD -[facility] Work Phone: Start: 06-04-2024 ambulatory [place] Hospital Facility:[facility] Start: 05-15-2024 End: 05-15-2024 ambulatory Evelyn Deleon SAP PPM CONSULTANT Facility:[facility] Start: 05-15-2024 End: 05-15-2024 ambulatory Evelyn Deleon SAP PPM CONSULTANT Facility:[facility] Start: 04-26-2024 End: 05-24-2024 ambulatory [facility] Facility:[facility] Start: 04-18-2024 End: 04-18-2024 Emergency department patient visit Qamar Rosario Facility:[facility] Start: 04-16-2024 End: 04-16-2024 ambulatory OMER WRAY Facility:[facility] Start: 04-10-2024 End: 04-23-2024 ambulatory Omer Erwinori Facility:[facility] Start: 03-20-2024 End: 03-23-2024 ambulatory OR Hospital Facility:[facility] Start: 03-13-2024 End: 03-13-2024 ambulatory OR Hospital Facility:[facility] Start: 03-04-2024 End: 03-04-2024 Telephone encounter Phillip Diamond MD Work Phone: Cardiology Comment on above: Patient Update Start: 03-01-2024 End: 03-01-2024 ambulatory [facility] Facility:[facility] Start: 02-28-2024 End: 02-28-2024 [facility] Facility:[facility] Start: 02-19-2024 End: 02-19-2024 [facility] Facility:[facility] Start: 02-06-2024 End: 02-06-2024 Patient encounter procedure Liz Madsen APRN.SAW FEEDER Work Phone: Cardiothoracic Comment on above: S/P MVR (mitral valv e repair) (Primary Dx); S/P TVR (tricuspid valve repair); S/P Maze operation for atrial fibrillation; Cardiac pacemaker in situ Start: 02-06-2024 End: 02-06-2024 harlan DIAMOND Facility:[facility] Start: 02-06-2024 End: 02-06-2024 Subsequent hospital visit by physician Xr Chest Main J1 Work Phone: Radiology Comment on above: Surgery follow-up [Z 09] Start: 01-31-2024 End: 01-31-2024 Telephone encounter Broderick Ng RN NOC Comment on above: Follow Up Phone Call (RC follow up call all clear. /) Start: 01-29-2024 End: 01-29-2024 Evaluation and management of inpatient [facility] Work Phone: Cardiology Start: 01-23-2024 End: 01-23-2024 Evaluation and management of inpatient [facility] Work Phone: Cardiology Start: 01-22-2024 End: 01-22-2024 ambulatory Phillip Diamond MD Work Phone: Cardiothoracic Comment on above: Patient Education Start: 01-22-2024 End: 01-22-2024 Patient encounter status A Tunde Diamond MD Work Phone: [facility] Start: 01-22-2024 End: 01-22-2024 Admission to same day surgery center Anesthesia Clearance Work Phone: [facility] Work Phone: Start: 01-22-2024 End: 01-22-2024 Patient encounter procedure Anesthesia Clearance Work Phone: Cardiothoracic Comment on above: Encounter for preope rative anesthesiology assessment for cardiac surgery (Primary Dx) Mitral valve insuffi ciency, unspecified etiology (Primary Dx) 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); Pre-operative cardiovascular examination; Atrial fibrillation, unspecified type (HCC); Mitral valve disorder Start: 01-19-2024 End: 01-19-2024 Subsequent hospital visit by physician [facility] Work Phone: Cardiology Comment on above: Pacemaker reprogramm ing/check [Z45.018] Start: 01-19-2024 End: 01-19-2024 ambulatory Pulm J-1 Pulmonary Medicine Comment on above: Spirometry Start: 01-19-2024 End: 01-19-2024 Patient encounter procedure Pulm Fct Lab J-1 Pulmonary Medicine Comment on above: Pre-op exam (Primary Dx); Disorder of artery or arteriole (HCC); Pre-operative cardiovascular examination; Atrial fibrillation, unspecified type (HCC); Mitral valve disorder; Nonrheumatic mitral valve regurgitation; BALDERAS (dyspnea on exertion); PAF (paroxysmal atrial fibrillation) ([facility]); Mitral valve prolapse Start: 01-19-2024 End: 01-19-2024 Preprocedural examination done Moiz Koenig MD Work Phone: [facility] Work Phone: Start: 01-19-2024 End: 01-19-2024 Subsequent hospital visit by physician Vangie Manzano (I-Stat) Work Phone: Radiology Comment on above: 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] Start: 01-19-2024 End: 01-19-2024 Patient encounter status Moiz Koenig MD Work Phone: [facility] Start: 01-19-2024 End: 01-19-2024 Subsequent hospital visit by physician Dk Scott J1 Work Phone: Radiology Comment on above: 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] Start: 01-18-2024 Patient encounter status Pulm J-1 [facility] Start: 12-06-2023 Patient encounter status A Cee Diamond MD Work Phone: [facility] Start: 12-06-2023 Telephone encounter A Tunde ace MD Work Phone: Cardiothoracic Comment on above: Referral Information ; Pre-Op CTHO Consult; Cardiac Preop Checklist Start: 07-10-2023 End: 07-11-2023 ambulatory UNKNOWN PROVIDER Facility:[facility] Start: 07-10-2023 End: 07-10-2023 Subsequent hospital visit by physician Chelsie Nieves APRN-NADEEN Other Phone: [facility] Comment on above: Dyspnea, unspecified type Start: 04-03-2023 Non-patient / Non-visit Dr. Brando Mcdonough Work Phone: [facility] Start: 04-03-2023 End: 04-03-2023 Admission to same day surgery center Dr. Asad Mcdonough Work Phone: [facility] Start: 04-03-2023 End: 04-03-[address] Asad Mcdonough Work Phone: [facility] Work Phone: Start: 03-29-2023 End: 03-29-[address] Asad Mcdonough Work Phone: [facility] Work Phone: Start: 03-29-2023 End: 03-29-[address] Asad Mcdonough Work Phone: [facility] Work Phone: Start: 03-22-2023 End: 03-22-[address] Asad Mcdonough Work Phone: [facility] Work Phone: Start: 02-01-2023 End: 02-01-[address] Asad Mcdonough Work Phone: [facility] Work Phone: Start: 01-03-2023 End: 01-03-[address] Asad Mcdonough Work Phone: [facility] Work Phone: Start: 12-20-2022 Non-patient / Non-visit Dr. Brando Mcdonough Work Phone: [facility] Work Phone: Start: 12-19-2022 End: 12-20-2022 Evaluation and management of inpatient Dr. Asad Mcdonough Work Phone: [facility] Work Phone: Start: 12-19-2022 End: 12-20-[address] Asad Mcdonough Work Phone: [facility] Work Phone: Start: 12-19-2022 Non-patient / Non-visit Dr. Brando Mcdonough Work Phone: [facility] Start: 03-07-2021 End: 03-07-2021 Emergency department patient visit NAEL LAN [facility] Start: 12-09-2020 ambulatory EDNA Shelby cility:[facility] Start: 03-07-2016 End: 03-08-2016 Ambulatory JANI SERRANO Facility:[facility] Procedures Date Procedure Procedure Detail Performing Clinician Start: 01-26-2025 Estimated creatinine clearance [facility] Start: 01-25-2025 [facility] Start: 01-25-2025 SARS-CoV-2, Influenz a & RSV (PCR) [facility] Start: 01-25-2025 Radiologic exam ches t 2 views [facility] Start: 01-13-2025 Urnls dip stick/tabl et reagent auto microscopy [facility] Start: 12-16-2024 Blood pressure withi n normal parameters - no follow-up required Broderick Bundy MD Work Phone: Start: 12-16-2024 BMI outside of erica l parameters - no follow-up plan/reason not given Broderick Bundy MD Work Phone: Start: 12-16-2024 Current tobacco non- user cad cap copd pv dm Broderick Bundy MD Work Phone: Start: 12-16-2024 Documentation of cur rent medications Broderick Bundy MD Work Phone: Start: 12-16-2024 Pain assessment docu mented as positive - no follow-up/reason not given Broderick Bundy MD Work Phone: Start: 08-13-2024 X-ray of chest, PA a nd lateral views Dr. Omer Wray MD Work Phone: Start: 08-13-[address] Omer Wray MD Work Phone: Start: 02-06-2024 Radiologic exam ches t 2 views Phillip Diamond MD Work Phone: Start: 01-23-2024 Program eval implant able in persn dual ld pacer Edwin Self CARBON CLEANER.SAW FEEDER Work Phone: Start: 01-19-2024 Co diffusing capacity Phillip Diamond MD Work Phone: Start: 01-19-2024 CTA CHEST/ABD/PEL (G ATED) W IVCON Phillip Diamond MD Work Phone: Start: 01-19-2024 Creatinine [Mass/vol ume] in Serum or Plasma [facility] Start: 01-19-2024 Radiologic exam ches t 2 views Phillip Diamond MD Work Phone: Start: 07-10-2023 Radiologic exam ches t 2 views Chelsie Nieves CARBON CLEANER-SAW FEEDER Other Phone: Start: 04-03-2023 Lap Robotic Umb/Vent ral Hernia (Not Applicable) Dr. Asad Mcdnoough Work Phone: Start: 03-29-2023 Computed tomography of [...] Mcdonough Work Phone: Start: 11-25-2019 Colonoscopy Chelsie Farfancesar on [employer] CLEANER-SAW FEEDER Other Phone: Start: 09-07-2016 End: 09-07-2016 Documentation of current medications Birdie Garcia Start: 11-30-2012 End: 11-30-2012 *BMP Renuka Georges PA-C Work Phone: Start: 11-30-2012 End: 11-30-2012 24 hour holter monitor Renuka power PA-C Work Phone: Start: 11-30-2012 End: 11-30-2012 BNP Rneuka Georges PA-C Work Phone: Start: 11-30-2012 End: 11-30-2012 CBC W Auto Differential panel - Blood Renuka Georges PA-C Work Phone: Start: 11-30-2012 End: 11-30-2012 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 Renuka Georges PA-C Work Phone: Start: 11-30-2012 [...] Screening for malignant neoplasm of colon [facility] Start: 02-05-2027 Diabetes Screening Diabetes Screening [facility] Start: 01-28-2027 Diabetes Screening Diabetes Screening [facility] Start: 01-24-2027 Diabetes Screening Diabetes Screening [facility] Start: 01-18-2027 Diabetes Screening Diabetes Screening [facility] Start: 08-22-2025 DTaP/Tdap/Td Vaccines (3 - Td or Tdap) DTaP/Tdap/Td Vaccines (3 - Td or Tdap) [facility] Start: 08-22-2025 Urine microalbumin profile DTaP,Tdap,Td Vaccine (3 - Td or Tdap) [facility] Start: 08-10-2025 Tetanus vaccination Tetanus (Td or Tdap) Booster [facility] Start: 08-10-2025 Urine microalbumin profile DTaP,Tdap,Td Vaccine (2 - Td or Tdap) [facility] Start: 02-05-2025 BP Controlled (<130/80) BP Controlled (<130/80) [facility] Start: 01-27-2025 Catheterization of left heart [facility] Start: 01-26-2025 End: 01-27-2025 Patient discharge [facility] Start: 01-25-2025 Following clinical pathway protocol [facility] Start: 01-25-2025 Assessment of risk of venous thromboembolism [facility] Start: 01-25-2025 Incentive spirometry [facility] Start: 01-25-2025 Inhalation therapy procedure [facility] Start: 01-25-2025 Insertion of catheter into peripheral vein [facility] Start: 01-25-2025 Measuring intake and output [facility] Start: 01-25-2025 Providing care according to standard [facility] Start: 01-25-2025 Provision of activity privileges [facility] Start: 01-25-2025 [facility] Start: 01-25-2025 Admission procedure [facility] Start: 01-25-2025 [facility] Start: 01-25-2025 Continuous positive airway pressure ventilation treatment [facility] Start: 01-18-2025 BP Controlled (<130/80) BP Controlled (<130/80) [facility] Start: 01-13-2025 End: 01-13-2025 Evaluation of diagnostic study results [facility] Start: 12-23-2024 Influenza vaccination Influenza Vaccine (#1) [id number] Start: 08-13-2024 [facility] Start: 04-24-2024 Advance Directive Discussion Advance Directive Discussion [facility] Start: 03-07-2024 Diabetes Screening Diabetes Screening [facility] Start: 02-06-2024 End: 02-06-2024 Follow-up encounter 02/06/2024 8:45 AM EDT Results Only Cardiology [address] [place] [address] Surgery Follow Up Cardiology Comment on above: Surgery Follow Up Start: 02-06-2024 End: 02-06-2024 ambulatory 02/06/2024 8:30 AM EDT Results Only [place] [id number] [place] [address] CBC CMP Main [place] J1-4 Draw Station Comment on above: CBC CMP Start: 02-06-2024 End: 02-06-2024 Patient encounter procedure Radiology Comment on above: Surgery Follow Up Hospital Discharge J 08-22-20 Start: 01-23-2024 End: 01-23-2024 Admission to same day surgery center 01/23/2024 12:20 PM EDT - 01/23/2024 5:00 PM EDT Surgery Admitting [address] [place] [address] Phillip Diamond MD [address] [place] [address] MVr +/- MAZE ?Robot (2) Admitting Comment [...] 01/23/2024 3:50 PM EDT Surgery Admitting [address] [place] [address] Phillip Diamond MD [address] [place] [address] MVr +/- MAZE ?Robot (2) Admitting Comment on above: MVr +/- MAZE ?Robot (2) Start: 01-23-2024 End: 01-23-2024 Maze procedure for atrial fibrillation FULL MAZE W/ CARDIOPULMONARY BYPASS Disorder of artery or arteriole (HCC) Pre-operative cardiovascular examination Atrial fibrillation, unspecified type (HCC) Mitral valve disorder 01/23/2024 11:10 AM EDT [facility] Start: 10-01-2024 Subsequent hospital visit by physician 01/23/2024 11:10 AM EDT Hospital Encounter Admitting [address] [place] [id number] Phillip Diamond MD [address] [place] [address] Disorder of artery or arteriole [...] Mitral valve disorder 01/23/2024 11:10 AM EDT [facility] CT & VAS Start: 01-23-2024 End: 01-23-2024 Admission to same day surgery center 01/23/2024 6:30 AM EDT - 01/23/2024 11:10 AM EDT Surgery Admitting [address] [phone] Phillip Diamond MD [address] [place] [address] MVr +/- MAZE ?Robot (2) Admitting Comment on above: MVr +/- MAZE ?Robot (2) Start: 01-23-2024 End: 01-23-2024 Anesthesia consultation 01/23/2024 6:30 AM EDT Anesthesia Event Admitting [address] [phone] Willow Armas SRNA Admitting Start: 01-23-2024 End: 01-23-2024 Maze procedure for atrial fibrillation FULL MAZE W/ CARDIOPULMONARY BYPASS Disorder of artery or arteriole (HCC) Pre-operative cardiovascular examination Atrial fibrillation, unspecified type (HCC) Mitral valve disorder 01/23/2024 6:30 AM EDT [facility] Start: 01-23-2024 Subsequent hospital visit by physician 01/23/2024 6:30 AM EDT Hospital Encounter Admitting [address] [place] [address] Phillip Diamond MD [address] [place], [place] [id number] Disorder of artery or arteriole (HCC) [I77.9], [...] Vaccine ( season) Covid-19 Vaccine ( season) [facility] Start: 12-24-2023 Influenza vaccination Influenza Vaccine (#1) [facility] Start: 12-08-2023 End: 03-08-2024 aPTT in Platelet poor plasma by Coagulation assay ACTIVATED PARTIAL THROMBOPLASTIN TIME Lab Routine Disorder of artery or arteriole (HCC) Pre-operative cardiovascular examination Atrial fibrillation, unspecified type (HCC) Mitral valve disorder Expected: 12/08/2023 (Approximate), Expires: 03/08/2024 [facility] Comment on above: Expected: 12/08/2023 (Approximate), Expi res: 03/08/2024 Start: 12-08-2023 End: 03-08-2024 CBC W Auto Differential panel - Blood COMPLETE BLOOD COUNT AND DIFFERENTIAL Lab Routine Disorder of artery or arteriole (HCC) Pre-operative cardiovascular examination Atrial fibrillation, unspecified type (HCC) Mitral valve disorder Expected: 12/08/2023, Expires: 03/08/2024 [facility] Comment on above: Expected: 12/08/2023, Expires: Start: 12-08-2023 End: 03-08-2024 Comprehensive metabolic 2000 panel - Serum or Plasma COMPREHENSIVE METABOLIC PANEL Lab Routine Disorder of artery or arteriole (HCC) Pre-operative cardiovascular examination Atrial fibrillation, unspecified type (HCC) Mitral valve disorder Expected: 12/08/2023, Expires: 03/08/2024 [facility] Work Phone: Comment on above: Expected: 12/08/2023, Expires: Start: 12-08-2023 End: 03-08-2024 CONFIRM BLOOD TYPE CONFIRM BLOOD TYPE Blood Bank Routine Disorder of artery or arteriole (HCC) Pre-operative cardiovascular examination Atrial fibrillation, unspecified type (HCC) Mitral valve disorder Expected: 12/08/2023, Expires: 03/08/2024 [facility] Comment on above: Expected: 12/08/2023, Expires: Start: 12-08-2023 End: 03-08-2024 Lactate dehydrogenase [Enzymatic activity/volume] in Serum or Plasma LACTATE DEHYDROGENASE Lab Routine Disorder of artery or arteriole (HCC) Pre-operative cardiovascular examination Atrial fibrillation, unspecified type (HCC) Mitral valve disorder Expected: 12/08/2023, Expires: 03/08/2024 [facility] Comment on above: Expected: 12/08/2023, Expires: Start: 12-08-2023 End: 03-08-2024 PT panel - Platelet poor plasma by Coagulation assay PROTHROMBIN TIME Lab Routine Disorder of artery or arteriole (HCC) Pre-operative cardiovascular examination Atrial fibrillation, unspecified type (HCC) Mitral valve disorder Expected: 12/08/2023 (Approximate), Expires: 03/08/2024 [facility] Comment on above: Expected: 12/08/2023 (Approximate), Expi res: 03/08/2024 Start: 12-08-2023 End: 03-08-2024 TYPE AND SCREEN,30 DAY TYPE AND SCREEN,30 DAY Blood Bank Routine Disorder of artery or arteriole (HCC) Pre-operative cardiovascular examination Atrial fibrillation, unspecified type (HCC) Mitral valve disorder Expected: 12/08/2023, Expires: 03/08/2024 [facility] Comment on above: Expected: 12/08/2023, Expires: Start: 12-08-2023 End: 03-08-2024 URINALYSIS, DIPSTICK ONLY URINALYSIS, DIPSTICK ONLY Lab Routine Disorder of artery or arteriole (HCC) Pre-operative cardiovascular examination Atrial fibrillation, unspecified type (HCC) Mitral valve disorder Expected: 12/08/2023, Expires: 03/08/2024 [facility] Comment on above: Expected: 12/08/2023, Expires: Start: 04-24-2023 Advance Directive Discussion Advance Directive Discussion [facility] Start: 04-03-2023 Patient discharge [facility] Start: 12-23-2022 Covid-19 Vaccine ( season) Covid-19 Vaccine () [facility] Start: 12-23-2022 COVID-19 Vaccine ( season) COVID-19 [facility]ine ( season) [facility] Start: 12-23-2022 Influenza vaccination Influenza Vaccine (#1) [facility] Start: 12-20-2022 Patient discharge [facility] Start: 12-19-2022 Application of intermittent pneumatic compression device [facility] Start: 12-19-2022 Following clinical pathway protocol [facility] Start: 12-19-2022 Measuring intake and output [facility] Start: 12-19-2022 Incentive spirometry [facility] Start: 12-19-2022 [facility] Start: 12-19-2022 Application of ice collar, cap or bag [facility] Start: 12-19-2022 Elevation of head of bed [facility] Start: 12-19-2022 Admission procedure [facility] Start: 12-19-2022 Anesthesia hernia repair upper abdomen nos ANESTH REPAIR OF HERNIA [facility] Start: 12-19-2022 RPR AA HRN 1ST < 3 CM RDC RPR AA HRN 1ST < 3 CM RDC [facility] Start: 2022 Pneumococcal vaccination Pneumococcal Vaccine(s) (65+ yrs) (1 of 1 - PCV) [facility] Start: 2022 Pneumococcal Vaccine: 65+ (2 of 2 - PPSV23 or PCV20) Pneumococcal Vaccine: 65+ (2 of 2 - PPSV23 or PCV20) [facility] Start: 01-22-2022 Medicare Annual Wellness Visit Medicare Annual Wellness Visit [facility] Start: 11-24-2020 Screening for malignant neoplasm of colon [facility] Start: 2017 Hepatitis B (HBV) Vaccine (optional start 60+ years) Hepatitis B (HBV) Vaccine (optional start 60+ years) [facility] Start: 2017 RSV Immunization for Adults (1 - Risk 60-74 years 1-dose series) RSV Immunization for Adults (1 - Risk 60-74 years 1-dose series) [facility] Start: 2017 RSV Vaccine (1 - 1-dose 60+ series) RSV Vaccine (1 - 1-dose 60+ series) [facility] Start: 2017 RSV Vaccine (1 - Risk 60-74 years 1-dose series) RSV Vaccine (1 - Risk 60-74 years 1-dose series) [facility] Start: 2017 RSV vaccine (optional 60+ years) RSV vaccine (optional 60+ years) [facility] Start: 09-13-2016 End: 09-13-2016 Appointment Appointment [facility] Work Phone: Start: 09-07-2016 End: 09-07-2016 Appointment Appointment [facility] Work Phone: Start: 11-30-2012 End: 11-30-2012 *BMP *BMP [facility] Work Phone: Start: 11-30-2012 End: 11-30-2012 24 hour holter monitor [address] 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 SERVICER [facility] Work Phone: Start: 11-30-2012 End: 11-30-2012 Echocardiography Echocardiogram (complete) [facility] Work Phone: Start: 11-30-2012 End: 11-30-2012 Electrocardiogram, complete EKG (In office) [facility] Work Phone: Start: 11-30-2012 End: 11-30-2012 Follow Up Appt 6 months Follow Up Appt 6 months [facility] Work Phone: Start: 11-30-2012 End: 11-30-2012 Thyroid stimulating hormone (TSH) *TSH [facility] Work Phone: Start: 02-11-2012 Prostate specific antigen measurement Prostate Cancer Screening Discussion [facility] Start: 11-16-2011 End: 11-16-2011 Follow Up Appt 1 year Follow Up Appt 1 year [facility] Work Phone: Start: 2007 Shingles (RZV) Vaccine (1 of 2) Shingles (RZV) Vaccine (1 of 2) [facility] [employer] [facility] Start: 2007 Shingrix Vaccine (1 of 2) Shingrix Vaccine (1 of 2) [facility] Start: 2002 Prostate specific antigen measurement Prostate Cancer Screening Discussion [facility] Start: 2002 Screening for malignant neoplasm of colon [facility] Start: 02-11-1992 Lipid panel [facility] Start: 02-11-1976 Hepatitis A (HAV) Vaccine (optional start 19+ years) Hepatitis A (HAV) Vaccine (optional start 19+ years) [facility] Start: 02-11-1976 Tetanus vaccination Tetanus (Td or Tdap) Booster [facility] Start: 1975 Annual PCP Team Chronic Disease Visit Annual PCP Team Chronic Disease Visit [facility] Start: 1975 Anxiety Screening Anxiety Screening [facility] Start: 1975 Depression Screening Depression Screening [facility] Start: 1975 Diabetes mellitus screening Diabetes Screening [facility] Start: 1975 Hepatitis C screening [facility] Start: 1975 Tetanus + diphtheria + acellular pertussis vaccine (product) Tdap Booster [facility] Start: 1969 Depression Screening Depression Screening [facility] Start: 1957 Abdominal aortic aneurysm screening Abdominal Aortic Aneurysm Screening [facility] Start: 1957 Lipid panel Lipid Panel [facility] Start: 1957 Medicare Annual Wellness (AWV) Medicare Annual Wellness (AWV) [facility] Start: 1957 Screening for malignant neoplasm of colon [facility] Basic metabolic 2008 panel with ionized calcium - Serum or Plasma [facility] CARDIAC IMPLANTABLE DEVICE CHECK CARDIAC IMPLANTABLE DEVICE CHECK PACEART Routine Pacemaker reprogramming/check 1 Occurrences starting 12/12/2023 [facility] Comment on above: 1 Occurrences starting 12/12/2023 End: 01-19-2024 CARDIAC IMPLANTABLE DEVICE CHECK CARDIAC IMPLANTABLE DEVICE CHECK PACEART Routine Pacemaker reprogramming/check 1 Occurrences starting 01/19/2024 until 01/19/2024 [facility] Comment on above: 1 Occurrences starting 01/19/2024 until 01/19/2024 End: 01-06-2025 CTA Chest vessels and Abdominal vessels and Pelvis vessels W contrast IV CTA CHEST/ABD/PEL (GATED) W IVCON Radiology Routine Disorder of artery or arteriole (HCC) Pre-operative cardiovascular examination Atrial fibrillation, unspecified type (HCC) Mitral valve disorder 1 Occurrences starting 12/08/2023 until 01/06/2025 [facility] Comment on above: 1 Occurrences starting 12/08/2023 until 01/06/2025 End: 12-07-2024 ECG COMPLETE ECG COMPLETE ECG Routine Disorder of artery or arteriole (HCC) Pre-operative cardiovascular examination Atrial fibrillation, unspecified type (HCC) Mitral valve disorder 1 Occurrences starting 12/08/2023 until 12/07/2024 [facility] Comment on above: 1 Occurrences starting 12/08/2023 until 12/07/2024 End: 12-07-2024 Echocardiography ECHO Cardiology Routine Disorder of artery or arteriole (HCC) Pre-operative cardiovascular examination Atrial fibrillation, unspecified type (HCC) Mitral valve disorder 1 Occurrences starting 12/08/2023 until 12/07/2024 [facility] Comment on above: 1 Occurrences starting 12/08/2023 until 12/07/2024 Electronic analysis antitachy pacemaker system [employer] Cardiology Routine Disorder of artery or arteriole (HCC) Pre-operative cardiovascular examination Atrial fibrillation, unspecified type (HCC) Mitral valve disorder Ordered: 12/08/2023 [facility] Comment on above: Ordered: 12/08/2023 End: 01-06-2025 LUNG DIFFUSION CAPACITY (DLCO) LUNG DIFFUSION CAPACITY (DLCO) PFT Routine Disorder of artery or arteriole (HCC) Pre-operative cardiovascular examination Atrial fibrillation, unspecified type (HCC) Mitral valve disorder 1 Occurrences starting 12/08/2023 until 01/06/2025 [facility] Comment on above: 1 Occurrences starting 12/08/2023 until 01/06/2025 LUNG DIFFUSION CAPAC ITY (DLCO) LUNG DIFFUSION CAPACITY (DLCO) PFT Routine Disorder of artery or arteriole (HCC) Pre-operative cardiovascular examination Atrial fibrillation, unspecified type (HCC) Mitral valve disorder 01/19/2024 2:35 PM EDT [facility] Work Phone: Natriuretic peptide. B prohormone N-Terminal [Mass/volume] in Serum or Plasma [facility] Patient Education [facility] Work Phone: Patient referral [facility] Work Phone: End: 01-06-2025 SPIROMETRY BASELINE ONLY SPIROMETRY BASELINE ONLY PFT Routine Disorder of artery or arteriole (HCC) Pre-operative cardiovascular examination Atrial fibrillation, unspecified type (HCC) Mitral valve disorder 1 Occurrences starting 12/08/2023 until 01/06/2025 [facility] Comment on above: 1 Occurrences starting 12/08/2023 until 01/06/2025 SPIROMETRY BASELINE ONLY SPIROME TRY BASELINE ONLY PFT Routine Disorder of artery or arteriole (HCC) Pre-operative cardiovascular examination Atrial fibrillation, unspecified type (HCC) Mitral valve disorder 01/19/2024 2:35 PM EDT [facility] Work Phone: [facility] End: 01-06-2025 XR Chest PA and Lateral XR CHEST 2V FRONTAL/LAT Radiology Routine Disorder of artery or arteriole (HCC) Pre-operative cardiovascular examination Atrial fibrillation, unspecified type (HCC) Mitral valve disorder 1 Occurrences starting 12/08/2023 until 01/06/2025 [facility] Comment on above: 1 Occurrences starting 12/08/2023 until 01/06/2025 Immunizations Immunization Date Immunization Notes Care Provider Afsaneh boateng 02-22-2017 pneumococcal conjuga te vaccine, [address] Asad Mcdonough Work Phone: [facility] 08-11-2015 tetanus toxoid, reduced diphtheria toxoid, and acellular pertussis vaccine, adsorbed Phe 4 [facility] [employer] [facility] Payers Date Payer Category Payer Self-pay [id number] 2022 [facility] DICARE SUPPLEMENT [id number] 2022 Medicare [id number]. [id number] 2022 Unknown [id number]. 1.13.159.2. [id number] 2022 [place] care--Care provided to Veterans [place] [employer] [id number]. [id number] 2022 Medicare [id number] Unknown [id number] 2022 Unknown [id number] 2013 Unknown [id number] [address] [facility] [employer] [id number] 2007-Present [phone] [facility] [address] [place] [address] PPO [id number]. [id number] 1957 Unknown [id number] 06.09.830.1.759202.3.579.2. 903 1957 Unknown [id number] .1.326863.3.579.2. 594 1957 Unknown [id number] .1.458131.3.579.2. 594 Unknown [id number] Unknown [id number] Unknown [id number] 840.1.645690.3.579.2. 462 Unknown [id number] 06.09.830.1.844875.3.579.2. 462 Unknown [id number] 2.840.1.803648.3.579.2. 462 Unknown [id number] 2..840.1.253754.3.579.2. 462 Unknown [id number] 2.16.840.1.411457.3.579.2. 462 Unknown [id number] 2.840.1.951794.3.579.2. 462 Unknown [id number] 2.840.1.300658.3.579.2. 462 Unknown [id number] 2.840.1.035786.3.579.2. 462 Unknown [id number] 2.840.1.014445.3.579.2. 462 Unknown [id number] 2.840.1.823064.3.579.2. 462 Unknown [id number] 2.840.1.783677.3.579.2. 462 Unknown [id number] 2.840.1.344971.3.579.2. 462 Unknown [id number] 2.840.1.151903.3.579.2. 462 Unknown [id number] 2.840.1.790314.3.579.2. 462 Unknown [id number] 2.840.1.859221.3.579.2. 462 Unknown [id number] .840.1.550695.3.579.2. 462 Unknown [id number] .840.1.051180.3.579.2. 462 Unknown [id number] 2.840.1.607445.3.579.2. 462 Unknown [id number] 2.840.1.195234.3.579.2. 462 Unknown [id number] 2.840.1.685299.3.579.2. 462 Unknown [id number] 2.840.1.638302.3.579.2. 462 Unknown [id number] 2.16.840.1.610621.3.579.2. 462 Unknown [id number] 2.16.840.1.634512.3.579.2. 462 Unknown [id number] 2.16.840.1.362333.3.579.2. 462 Unknown [id number] 2.16.840.1.560456.3.579.2. 462 Unknown [id number] 2.16.840.1.113089.3.579.2. 462 Unknown [id number] 2.16.840.1.026710.3.579.2. 462 Unknown [id number] 2.16840.1.525395.3.579.2. 462 Unknown [id number] 2.840.1.970324.3.579.2. 462 Unknown [id number] 2.840.1.991042.3.579.2. 462 Unknown [id number] 2.16840.1.350461.3.579.2. 462 Social History Date Type Detail Facility Start: 12-19-2022 End: 03-22-2023 Tobacco smoking status OKIS Unknown if ever smoked [facility] Start: 06-11-2018 None [facility] Start: 07-21-2017 Spouse/ Significant Other [facility] Start: 07-21-2017 Non-smoker [facility] Start: 1955 Sex Assigned At Male [facility] Tobacco smoking stat us OKIS Never smoked tobacco [facility] Work Phone: Start: 05-31-2006 End: 02-06-2024 Alcohol intake Current drinker of alcohol (finding) [facility] Start: 10-29-2021 End: 01-15-2024 History of Social function [facility] Work Phone: Start: 10-29-2021 End: 12-16-2024 Area Deprivation Index [facility] Work Phone: Start: 12-02-2012 National Score (1-100), lower number is lower risk 57 [facility] Work Phone: Start: 1955 Sex Assigned At Not on file [facility] [employer] Work Phone: Start: 01-19-2024 End: 01-27-2025 Tobacco smoking status NHIS Ex-smoker [facility] Start: 1977 End: 1973 History of tobacco use Current smoker [facility] Start: 1977 End: 1973 History of tobacco use Cigarette Smoker [facility] History of tobacco use Passive smoker [facility] Start: 01-19-2024 Tobacco use and exposure Former smokeless tobacco user [facility] End: 02-11-2000 History of tobacco use Chews Tobacco [facility] Start: 11-22-2021 Sex Male (finding) [facility] Medical Equipment Procedure Code Equipment Code Equipment Original Text Equipment Identifier Dates [id number] Start : 11-22-2017 [id number] Start : 11-22-2017 [id number] Start : 12-01-2017 Clip Atriclip Gillinov-Arlette 180d Long 35mm 25mm Internal Head - [id number] Start: 01-23-[address] Thk1.65mm P tfe 4x.5in Cardiovascular Sterile - [id number] Start: 01-23-2024 Band Suazo Ancor e 33mm Annuloplasty Chordal Guide - [id number] Start: 01-23-2024 Band Suazo Ancor e 31mm 77mm Annuloplasty Chordal Guide - [id number] Start: 01-23-2024 ([id number] Extra-gynaecolog ical surgical mesh, composite-polymer ()[id number] FDA Start: 04-03-2023 Dual-chamber implantable pacemaker, rate-responsive ()[id number] FDA Start: 01-27-2025 Goals Date Patient Goal Desired Activity /State Personal health goal Functional Status Date Assessment Result Facility 01-26-2025 Functional status Ambulates [facility] Work Phone: 12-16-2024 Functional Status right [facility] Work Phone: 12-16-2024 dependent [facility] Work Phone: 01-29-2024 Are you deaf, or do you have serious difficulty hearing No 01/29/2024 4:28 PM EDT Melida Eldridge, MICHAEL No [facility] 01-29-2024 Are you blind, or do you have serious difficulty seeing, even when wearing glasses No 01/29/2024 4:28 PM EDT Melida Eldridge RN No [facility] 01-29-2024 Do you have serious difficulty walking or climbing stairs No 01/29/2024 4:28 PM EDT Melida Eldridge, MICHAEL No [facility] 01-29-2024 Do you have difficul ty dressing or bathing No 01/29/2024 4:28 PM EDT Melida Eldridge, MICHAEL No [facility] 01-29-2024 Because of a physica l, mental, or emotional condition, do you have difficulty doing errands alone such as visiting a physician's office or shopping No 01/29/2024 4:28 PM EDT Melida Eldridge, MICHAEL No [facility] 12-20-2022 Functional status Up ad raisa [facility] Work Phone: Mental Status Date Assessment Result Facility 01-26-2025 Cognitive function Appropriate [facility] Work Phone: 01-29-2024 Because of a physica l, mental, or emotional condition, do you have serious difficulty concentrating, remembering, or making decisions No 01/29/2024 4:28 PM EDT Melida Eldridge RN No [facility] 04-03-2023 Cognitive function Voice/Name [facility] Work Phone: 12-20-2022 Cognitive function Level Of Cons ciousness Awake;Alert;Appropriate [facility] Work Phone: 12-19-2022 Cognitive function Voice/Name [facility] Work Phone: Clinical Notes 12-19-2022 to 02-11-2025 Note Date & Type Note Facility 02-11-2025 Procedure note [facility] 01-27-2025 Note HNO ID: [id number] Author: ZEINA LIU RN Service: ? Author Type: Registered Nurse Type: Progress Notes Filed: 01/27/2025 08:53 Note Text: Value Based Care Coordination Chart Review Provider Action / FYI: Cancel-OON PCP Upon review of patient chart, the patient is excluded from Transitional Disease Management Patient excluded from TCM outreach: OON PCP Action taken: No action needed Zeina Liu RN January 27, 2025 8:53 AM [facility] 01-27-2025 Note Patient Outreach (AM BC) TRE QUIÑONES ([id number]) 1955 M Date Time Provider Department 01/27/25 ZEINA LIU [facility] During your visit today, we recorded the following information about you: Zeina Liu RN 01/27/2025 8:53 AM Signed Value Based Care Coordination Chart Review Provider Action / FYI: Cancel-OON PCP Upon review of patient chart, the patient is excluded from Transitional Disease Management Patient excluded from TCM outreach: OON PCP Action taken: No action needed Zeina Liu RN January 27, 2025 8:53 AM Allergies As of Date: 01/27/2025 Noted Allergy Reaction HYDROCHLOROTHIAZIDE 05/06/2021 14 - Other: See Comments Comments: Gout INFLUENZA VIRUS VACCINES 01/19/2024 14 - Other: See Comments Comments: Flu like illness POLLEN EXTRACTS 01/19/2024 9 - Itching Comments: Watery, red eyes and sneezing Date Reviewed: 12/12/2024 Reviewed by: Gromosiak, Mady D, RN - Fully Assessed Reason for Visit: Transition Of Care [4074] Prescriptions as of 01/27/2025 - lisinopril (ZESTRIL) 5 mg tablet Take 1 tablet by mouth once daily. - acetaminophen (TYLENOL) 325 mg tablet Take 1-2 tablets by mouth every 4 hours as needed for pain. - aspirin 81 mg chewable tablet Take 1 tablet by mouth once daily. - polyethylene glycol 3350 17 gram packet Take 1 Packet by mouth once daily as needed for constipation. Dissolve dose in 4 - 8 ounces of liquid and take as directed. - senna-docusate (SENNA-S) 8.6-50 mg per tablet Take 1 tablet by mouth two times a day as needed for constipation. - albuterol (PROVENTIL) 2.5 mg /3 mL (0.083 %) nebulizer solution Inhale as instructed every 4 hours as needed. - amiodarone (PACERONE) 200 mg tablet Take 200 mg by mouth once daily. - amoxicillin (AMOXIL) 500 mg capsule TAKE 4 CAPSULES BY MOUTH ONE HOUR PRIOR TO DENTAL APPOINTMENT. - cholecalciferol (VITAMIN D3) 50 mcg (2,000 unit) tablet Take 50 mcg by mouth once daily. - empagliflozin (JARDIANCE) 25 mg tablet Take 12.5 mg by mouth daily with breakfast. - eplerenone (INSPRA) 25 mg tablet Take 12.5 mg by mouth once daily. - furosemide (LASIX) 20 mg tablet Take 20 mg by mouth once daily. - ipratropium 20 mcg-albuterol 100 mcg (COMBIVENT RESPIMAT) 20-100 mcg/actuation inhaler Inhale as instructed every 4 hours as needed. - metoprolol succinate ER (TOPROL XL) 50 mg 24 hr tablet Take 50 mg by mouth once daily. - rivaroxaban (XARELTO) 20 mg tablet Take 20 mg by mouth once daily. - diclofenac (VOLTAREN ARTHRITIS PAIN) 1 % topical gel Apply 2 g to affected area as needed. Problem List As Of Date 01/27/2025 Noted Resolved DERMATOPHYTOSIS OF GROIN [B35.6] 06/01/2006 DERMATOPHYTOSIS OF FOOT [B35.3] 06/01/2006 INTERTRIGO///ERYTHEMATOUS COND NEC [L53.8] 06/01/2006 DERMATOPHYTOSIS OF NAIL [B35.1] 06/01/2006 DERMATITIS NOS [L25.9] 06/01/2006 Pre-op testing [Z01.818] 01/18/2024 Pre-op exam [Z01.818] 01/19/2024 Nonrheumatic mitral valve regurgitation [I34.0] 01/19/2024 BALDERAS (dyspnea on exertion) [R06.09] 01/19/2024 PAF (paroxysmal atrial fibrillation) ([facility]) [I48*01/19/2024 Mitral valve prolapse [I34.1] 01/19/2024 Postoperative pain [G89.18] 01/23/2024 On mechanically assisted ventilation ([facility]) [Z99*01/23/2024 Stress hyperglycemia [R73.9] 01/23/2024 Anxiety [F41.9] 01/23/2024 Cardiac pacemaker in situ [Z95.0] 01/23/2024 Class 3 severe obesity due to excess calories w*01/23/2024 Severe mitral regurgitation [I34.0] 01/23/2024 Cardiac arrest ([facility]) [I46.9] 01/23/2024 05/27/2024 Cardiac insufficiency following cardiac surgery*01/23/2024 Ex-smoker [Z87.891] 01/25/2024 Ex-tobacco chewer [Z87.891] 01/25/2024 HTN (hypertension) [I10] 01/25/2024 Hypervolemia [E87.70] 01/25/2024 ABLA (acute blood loss anemia) [D62] 01/25/2024 Thrombocytopenia ([facility]) [D69.6] 01/25/2024 Leukocytosis [D72.829] 01/25/2024 Atelectasis [J98.11] 01/26/2024 Chronic diastolic HF (heart failure) ([facility]) [I50*01/29/2024 Encounter for support and coordination of trans*01/29/2024 Encounter Status:Closed by ZEINA LIU on 01/27/25 [facility] 01-26-2025 Discharge summary [facility] 01-26-2025 Discharge summary [facility] 01-26-2025 Note [facility] Medical Records Department [address] [place] [address] Discharge Summary 01/26/25 1152 MR#: [id number] Acct: [id number] Name: TRE QUIÑONES Rep #: [id number] : 1955 69 From: Juana Rodriguez MD PCP: [facility] Status:DIS IN Location: [place] [address] Providers Date of Admission: 01/25/25 Date of Discharge: 01/26/25 Primary Care Physician: [facility] Reason For Visit: RESPIRATORY DISTRESS SECONDARY TO ASTHMA EXACERBAT Diagnosis Discharge Diagnosis (1) Asthma exacerbation: Status: Acute Code(s): J45.901 - Unspecified asthma with (acute) exacerbation Plan #Acute exacerbation of asthma # Elevated troponin, no ACS # History of mitral and tricuspid valve replacements/permanent pacemaker #Paroxysmal Atrial Fibrillation #JOSÉ MIGUEL Medications at Discharge Home Medications albuterol sulfate 90 mcg/actuation aerosol inhaler 2 puff inhalation Q6H PRN PRN Wheezing/SOB 07/21/17 lisinopril 20 mg tablet 20 mg PO DAILY 05/23/18 tadalafil 5 mg tablet 5 mg PO DAILY 12/19/22 cholecalciferol (vitamin D3) 50 mcg (2,000 unit) capsule 50 mcg PO DAILY 10/27/23 eplerenone 25 mg tablet (Inspra) 12.5 mg (1/2 x 25 mg) PO DAILY #30 tabs 11/13/23 diclofenac sodium 1 % topical gel (Voltaren Arthritis Pain) 2 g topical ONCE PRN Arthritis Pain 02/14/24 empagliflozin 25 mg tablet 12.5 mg PO QAM 02/14/24 potassium gluconate 595 mg (99 mg) tablet 595 mg PO QDAY 02/19/24 metoprolol succinate 50 mg tablet,extended release 24 hr 50 mg PO QDAY #90 tabs 03/13/24 rivaroxaban 20 mg tablet 20 mg PO QDAY 09/18/24 furosemide 20 mg tablet 20 mg PO QAM 01/13/25 ipratropium 20 mcg-albuterol 100 mcg/actuation mist for inhalation (Combivent Respimat) 1 puff inhalation Q6H 01/25/25 pregabalin 75 mg capsule (Lyrica) 75 mg PO BID 01/25/25 prednisone 20 mg tablet See Taper PO BREAKFAST #32 tabs 01/26/25 Hospital Course Summary of Care Provided Minutes Spent on Discharge: 23 Hospital Course: Per HPI: TRE QUIÑONES, is a 69-year-old male with a history of asthma, A-fib on Xarelto, pacemaker placement, mitral and tricuspid valve replacement, Maze procedure, hypertension, JOSÉ MIGUEL who presented to [facility] ED 01/25/25 for several days of increased shortness of breath and nonproductive cough. Denies any leg swelling and is afebrile. No chest pain. In the ED temp 97.8, heart rate 59, blood pressure 155/69, respiratory rate initially 30 with pulse ox 96% on room air but decreased to 18, CBC with white count 6.5 and hemoglobin 13.1, BMP only notable for glucose of 101. Chest x-ray with cardiomegaly and mild vascular congestion, proBNP of 420, troponin of 52. Patient given steroids and nebs, he was also given a dose of Lasix, hospitalist contacted for admission due to his shortness of breath and respiratory distress. Patient evaluated at bedside. Symptoms have been present over the past 2 to 3 days and presented somewhat suddenly with wheezing and increased shortness of breath, has had a nonproductive cough since last night. No chest pain or fevers, no bowel or bladder changes. Little bit of nasal congestion now that nasal cannula is in place but no sore throat. also has a slight cough but no shortness of breath. He does feel little bit better after breathing treatments and steroids but still diffusely wheezing with shortness of breath. Patient denies any lower extremity swelling. INTERVAL HISTORY: Patient improved faster than anticipated and had significant improvement in work of breathing and shortness of breath this a.m. Still has some wheezing but significantly improved patient has been able to be up and ambulating in the room without respiratory distress, patient and comfortable with discharge home with [facility] No chest pain or increase in leg swelling on day of discharge and no other new acute complaints. Physical Exam Narrative General: Alert, oriented, no apparent distress HEENT: Atraumatic, normocephalic Eyes: Anicteric, normal conjunctiva, extraocular movements grossly intact Neck: Supple Respiratory: Some expiratory wheezes in lower lobes significantly improved, not tachypneic, no increased work of breathing Cardiovascular: Regular rate GI: Soft, nontender, nondistended Extremities: No significant pitting Musculoskeletal: Moving all extremities Neuro: No overt focal neurological deficits Skin: No rashes appreciated Psych: Cooperative Weight / BMI Weight Weight: 143.1 kg Body Mass Index (BMI) 42.7 ABG / Lab / Microbiology Data 01/26/25 07:16 01/26/25 07:16 Laboratory: Laboratory Results - last 24 hr 01/25/25 13:10: Troponin T Hi Sens 2 Hr 50 H 01/25/25 15:14: Troponin T Hi Sens 4Hr 42 H 01/26/25 07:16: WBC 9.5, RBC 4.95, Hgb 13.9, Hct 41.7, MCV 84.2, MCH 28.1, MCHC 33.3, RDW Std Deviation 43.8, RDW Coeff (more content not included)... [facility] 01-25-2025 History and physi vitaliy note Note Date/Time January 25, 2025 1:36pm [facility] Medical Records Department [address] [place] [address] H&P Exam - Hospitalist 01/25/25 1323 MR#: [id number] Acct: [id number] Name: TRE QUIÑONES Rep #:[id number] : 1955 69 From: Juana Rodriguez MD PCP: [facility] Status:REG ER Location: ED HPI - General General Date of Admission: 01/25/25 Date of Service: 01/25/25 Chief Complaint: SOB HPI Narrative TRE QUIÑONES, is a 69-year-old male with a history of asthma, A-fib on Xarelto, pacemaker placement, mitral and tricuspid valve replacement, Maze procedure, hypertension, JOSÉ MIGUEL who presented to [facility] ED 01/25/25 for several days of increased shortness of breath and nonproductive cough. Denies any leg swelling and is afebrile. No chest pain. In the ED temp97.8, heart rate 59, blood pressure 155/69, respiratory rate initially 30 with pulse ox 96% on room air but decreased to 18, CBC with white count 6.5 and hemoglobin 13.1, BMP only notable for glucose of 101. Chest x-ray with cardiomegaly and mild vascular congestion, proBNP of 420, troponin of 52. Patient given steroids and nebs, he was also given a dose of Lasix, hospitalist contacted for admission due to his shortness of breath and respiratory distress. Patient evaluated at bedside. Symptoms have been present over the past 2 to 3 days and presented somewhat suddenly with wheezing and increased shortness of breath, has had a nonproductive cough since last night. No chest pain or fevers, no bowel or bladder changes. Little bit of nasal congestion now that nasal cannula is in place but no sore throat. also has a slight cough but no shortness of breath. He does feel little bit better after breathing treatments and steroids but still diffusely wheezing with shortness of breath. Patient denies any lower extremity swelling. [facility] Medical History History of pacemaker Wears hearing [...] with BMI of 40.0-44.9, adult Home Medications ?Medication ?Instructions ?Recorded ?Last Taken ?Type albuterol sulfate 90 mcg/actuation 2 puff inhalation Q 6H PRN PRN 07/21/17 07/18/17 History aerosol inhaler Wheezing/SOB lisinopril 20 mg tablet 20 mg PO DAILY 05/23/18/ History tadalafil 5 mg tablet 5 mg PO DAILY 12/19/2211/18 History cholecalciferol (vitamin D3) 50 50 mcg PO DAILY Unknown History mcg (2,000 unit) capsule eplerenone 25 mg tablet (Inspra) 12.5 mg (1/2 x 25 mg) PO DAILY #30 11/13/23 Unknown Rx tabs acetaminophen 325 mg capsule 325 mg PO ONCE PRN fever or pain 02/14/24 Unknown History diclofenac sodium 1 % topical gel 2 g topical ONCE PRN Arthritis Pain 02/14/24 Unknown History (Voltaren Arthritis Pain) empagliflozin 25 mg tablet 12.5 mg PO QAM 02/14/24 Unk nown History potassium gluconate 595 mg (99 mg) 595 mg PO QDAY 01/23 12/15 Unknown History tablet metoprolol succinate 50 mg 50 mg PO QDAY #90 tabs 02/23 Unknown Rx tablet,extended release 24 hr amoxicillin 500 mg capsule 2,000 mg PO ONCE PRN . 08/23 12/16 Unknown History rivaroxaban 20 mg tablet 20 mg PO QDAY 09/18/24 Unkno wn History furosemide 20 mg tablet 20 mg PO QAM 01/13/25 Unknow n History Allergy/AdvReac Type Severity Reaction Status Date / Time Environmental Allergies: Allergy wheezing, Verified 01/25/25 10:47 Uncoded (hay fever) cough Family History Mother [...] of servings: 5 and coffee ROS ROS Narrative General: Denies fever/chills HENT slight headache, denies sore throat EYES: Denies changes in vision Resp: D dry cough, increased shortness of breath and wheezing Cardiac: Denies chest pain GI: Denies abdominal pain, denies changes in bowel, denies nausea/vomiting : Denies changes in urination Extremity: Denies swelling MSK: Denies weakness Neuro: Denies any numbness/tingling Heme: Denies any bleeding or bruising Skin: Denies rashes Psychiatric: No complaints voiced Vital Signs Vital Signs Vital Signs: 01/25/25 10:47 01/25/25 11:00 01/25/25 11:00 Temperature 97.8 F Temperature Source Temporal Pulse Rate 59 L 62 Respiratory Rate 30 H 18 Respiratory Pattern Tachypnea Blood Pressure 155/69 H Blood Pressure Mean 97 Pulse Ox 96 94 Oxygen Delivery Method Room Air Nasal Cannula Oxygen Flow Rate (L/min) 2 01/25/25 11:28 01/25/25 12:00 01/25/25 13:00 Temperature Temperature Source Pulse Rate 60 60 Respiratory Rate 18 15 Respiratory Pattern Blood Pressure 110/50 L 139/66 H Blood Pressure Mean 70 90 Pulse Ox 95 97 Oxygen Delivery Method Nasal Cannula Room Air Oxygen Flow Rate (L/min) Physical Exam Narrative General: Alert, oriented, increased work of breathing HEENT: Atraumatic, normocephalic Eyes: Anicteric, normal conjunctiva, extraocular movements grossly intact Neck: Supple Respiratory: Poor airflow but diffuse wheezes and increased respiratory effort cardiovascular: Regular rate and rhythm GI: Nontender, protuberant Extremities: No pitting edema in extremities Musculoskeletal: Moving all extremities Neuro: No overt focal neurological deficits Skin: No rashes appreciated Psych: Cooperative Results Lab / Micro Data 01/25/25 11:06 01/25/25 11:06 Labs: Laboratory Results - last 24 hr 01/25/25 11:06: WBC 6.5, RBC 4.77, Hgb 13.1, Hct 41.2, MCV 86.4, MCH 27.5, MCHC 31.8 L, RDW Std Deviation 45.3 H, RDW Coeff of Mar 14.2, Plt Count 204, MPV 10.2, Immature Gran % (Auto) 0.200, Neut % (Auto) 59.5, Lymph % (Auto) 19.7, Vance % (Auto) 12.1 H, Eos % (Auto) 7.3 H, Baso % (Auto) 1.2 H, Absolute Neuts (auto) 3.9, Absolute Lymphs (auto) 1.27, Nucleated RBC % 0, Sodium 144, Potassium 4.2, Chloride 108, Carbon Dioxide 25.2, Anion Gap 11, BUN 16, Creatinine 0.96, Est GFR (MDRD) Non-Af 87, BUN/Creatinine Ratio 17.2, Glucose 101 H, Calcium 9.6, Troponin T High Sens 52 H, NT pro BNP II 420 Micro: Microbiology 01/25/25 11:20 Mucosa - Nose SARS-CoV-2, Influenza & RSV (PCR) - Final Rhythm Strip Rhythm Strip: Paced Rate: 60 Ectopy: None Imaging Radiology Impression Chest X-Ray 01/25/25 10:54 IMPRESSION: Cardiomegaly with mild vascular congestion. Reading Location: [facility] Assessment & Plan Assessment/Plan (1) Asthma exacerbation: PLAN: Plan #Acute exacerbation of asthma -Admit to floor, continuous O2 monitoring -Chest x-ray: No acute infiltrate, query mild vascular congestion -COVID ordered, obtain respiratory panel, sputum culture if able -O2 in place, wean as tolerated -IV methylprednisone -Scheduled DuoNebs -Albuterol prn -Antibiotics: Not indicated -Incentive spirometer -Mucinex -There was a question of if this was fluid overload, patient's BNP only 420 which makes heart failure unlikely and is actually lower than it was 5 months ago, no peripheral edema, chest x-ray queried mild vascular congestion but patient still diffusely wheezing and symptoms seem consistent with asthma exacerbation - Recent echocardiogram 3 months ago with EF of 60% and moderate concentric leftventricular hypertrophy, PASP 42 mmHg -Patient received one-time dose of IV Lasix in the ED -Will monitor daily weights and I's and O's - Continue home medications # Elevated troponin - Possibly secondary to respiratory distress as he denies any chest pain - Did have heart cath October 2023 with essentially angiographically normal coronary arteries # History of mitral and tricuspid valve replacements/permanent pacemaker - Following on an outpatient basis - Patient is scheduled this week to get pacemaker battery recharged #Paroxysmal Atrial Fibrillation -Rate control: Will resume home rate control once med reconciliation available -Anticoagulation: Will continue home Xarelto #JOSÉ MIGUEL -Continue home CPAP if able, patient reports compliance #DVT ppx: Already on full dose anticoagulation Juana Rodriguez MD Charges/Coding Visit Charges Inpatient E&M: 78357 Init Hosp L2 01/25/25 1336 <Electronically signed by Juana Rodriguez MD> Cosigner Signature (if applicable): CC: Dr. Juana Rodriguez MD; [facility]~ Signed [facility] Work Phone: [phone] 375-499710-04-2025 Discharge summary Author Raymond Madrid [facility] Note Date/Time January 25, 2025 12 :52pm [facility] Medical Records Department [address] [place] [address] Emergency Department Summary 01/25/25 MR#: [id number] Acct: [id number] Name: TRE QUIÑONES Rep #:[id number] : 1955 69 From: Raymond Madrid MD PCP: [facility] Status:REG ER Location: ED HPI History of Present Illness Chief Complaint: Shortness of Breath Informant: patient and spouse/S.O. Onset/Context/Timing Onset: Days Context: gradual Timing: Continuous Quality: Positive for Wheezing Current Severity: Moderate Maximum Severity: Moderate Worsened by: Exertion and Coughing Relieved by: Nothing Associated Symptoms cough Chest Pain: Positive for None Narrative Narrative: 69-year-old male history of asthma, A-fib on Xarelto with pacemaker prior valve replacement with a pig valve. An open heart surgery. States has been short of breath last few days. Nonproductive cough. Afebrile. No chest pain. States she is wheezing. Denies any leg swelling. PE Risk Factors: Negative for Cancer, OCP + Smoking + > 35, Prior DVT or PE, Recent immobilization, Recent surgery or Recent travel Prior similar symptoms: Yes Recent Illness/Hospitalization: No PFSH PFSH Medical History History of pacemaker Wears [...] with BMI of 40.0-44.9, adult Home Medications ?Medication ?Instructions ?Recorded ?Last Taken ?Type albuterol sulfate 90 mcg/actuation 2 puff inhalation Q 6H PRN PRN 07/21/17 07/18/17 History aerosol inhaler Wheezing/SOB lisinopril 20 mg tablet 20 mg PO DAILY 05/23/1810/24 History tadalafil 5 mg tablet 5 mg PO DAILY 12/19/2211/18 History cholecalciferol (vitamin D3) 50 50 mcg PO DAILY Unknown History mcg (2,000 unit) capsule eplerenone 25 mg tablet (Inspra) 12.5 mg (1/2 x 25 mg) PO DAILY #30 11/13/23 Unknown Rx tabs acetaminophen 325 mg capsule 325 mg PO ONCE PRN fever or pain 02/14/24 Unknown History diclofenac sodium 1 % topical gel 2 g topical ONCE PRN Arthritis Pain 02/14/24 Unknown History (Voltaren Arthritis Pain) empagliflozin 25 mg tablet 12.5 mg PO QAM 02/14/24 Unk nown History potassium gluconate 595 mg (99 mg) 595 mg PO QDAY 01/23 12/15 Unknown History tablet metoprolol succinate 50 mg 50 mg PO QDAY #90 tabs 02/23 Unknown Rx tablet,extended release 24 hr amoxicillin 500 mg capsule 2,000 mg PO ONCE PRN . 08/23 12/16 Unknown History rivaroxaban 20 mg tablet 20 mg PO QDAY 09/18/24 Unkno wn History furosemide 20 mg tablet 20 mg PO QAM 01/13/25 Unknow n History Allergy/AdvReac Type Severity Reaction Status Date / Time Environmental Allergies: Allergy wheezing, Verified 01/25/25 10:47 Uncoded (hay fever) cough Family History Mother [...] servings: 5 and coffee ROS ROS ED ROS Narrative Short of breath. Wheezing. Mild nonproductive cough. No chest pain. No feveror chills. Constitutional Constitutional ED: Denies chills or fever(s) Eyes Eyes: Denies blurry vision ENT ENT ED: Denies ear pain Cardiovascular Cardiovascular: Denies chest pain Respiratory/Chest Respiratory/Chest: Reports cough and dyspnea Gastrointestinal Gastrointestinal: Denies abdominal pain Genitourinary Genitourinary ED: Denies dysuria or hematuria Musculoskeletal Musculoskeletal: Denies arthralgias Integumentary Denies abscess Neurologic Neurologic: Denies headache(s) Psychiatric Psychiatric: Denies anxiety Endocrine Endocrinology: Denies cold intolerance Hematologic/Lymphatic Hematologic/Lymphatic: Denies lymphadenopathy Allergic/Immunologic Allergic/Immunologic ED: Denies mouth swelling, tongue swelling or urticaria EXAM Physical Exam Narrative Exam Narrative: 69-year-old male sitting upright in bed. Vital signs are stable he is afebrile with pulse ox 96% on room air no hypoxia. He is actively wheezing. Mildly labored breathing. at bedside. H EENT exam pupils round react light. Moist membranes. Neck nontender no JVD. No lymphadenopathy. Lungs expiratory wheezing. No rales or rhonchi. Equal symmetrical. Prolonged expiratory phase. Heart rate about 60 no murmur. Chest wall ribs nontender. Abdomen soft nontender. Moving all 4 extremities. Normal strength. Calves are nontender without edema or cords. Neurologically is awake and alert. Answering questionsfollowing commands. Back nontender. Const Vital Signs: 01/25/25 10:47 01/25/25 11:00 01/25/25 11:00 Temperature 97.8 F Temperature Source Temporal Pulse Rate 59 L 62 Respiratory Rate 30 H 18 Respiratory Pattern Tachypnea Blood Pressure 155/69 H Blood Pressure Mean 97 Pulse Ox 96 94 Oxygen Delivery Method Room Air Nasal Cannula Oxygen Flow Rate (L/min) 2 01/25/25 11:28 01/25/25 12:00 Temperature Temperature Source Pulse Rate 60 Respiratory Rate 18 Respiratory Pattern Blood Pressure 110/50 L Blood Pressure Mean 70 Pulse Ox 95 Oxygen Delivery Method Nasal Cannula Oxygen Flow Rate (L/min) MDM MDM MDM Narrative Medical decision making narrative: 69-year-old male with wheezing and nonproductive cough this could be a viral illness causing of bronchospasm versus rule out pneumonia versus cardiac etiology such as CHF. Undergo cardiac workup. Due to his wheezing, given IV Solu-Medrol and DuoNeb and albuterol aerosols. Repeat exam patient's breathing is better at the aerosols and Solu-Medrol. Given his chest x-ray and labs I do think he has pulmonary edema may be from congestive heart failure. He will be given IV Lasix. I discussed with both he and his admission. They are comfortable with the plan. I spoke to the hospitalist. He will be admitted to the PCU. History & Record Review Discussion w/independent historian: Patient and Family Additional record(s) reviewed:: Prior inpatient record, Prior outpatient record,Prior ED visit and Prior labs Lab Data Attestation: I reviewed the patient's lab results. Lab results narrative: CBC shows a normal white count of 6.5. H&H 13 and 41. Platelets 204. Electrolytes show a gap of 11. Normal BUN and creatinine of 16 and 0.9. Glucose 101. Troponins mildly elevated at 52 and his BNP is elevated at 420. Chest x-ray is consistent with congestive heart failure. Labs: Laboratory Results - last 24 hr 01/25/25 11:06 WBC 6.5 RBC 4.77 Hgb 13.1 Hct 41.2 MCV 86.4 MCH 27.5 MCHC 31.8 L RDW Std Deviation 45.3 H RDW Coeff of Mar 14.2 Plt Count 204 MPV 10.2 Immature Gran % (Auto) 0.200 Neut % (Auto) 59.5 Lymph % (Auto) 19.7 Vance % (Auto) 12.1 H Eos % (Auto) 7.3 H Baso % (Auto) 1.2 H Absolute Neuts (auto) 3.9 Absolute Lymphs (auto) 1.27 Nucleated RBC % 0 Sodium 144 Potassium 4.2 Chloride 108 Carbon Dioxide 25.2 Anion Gap 11 BUN 16 Creatinine 0.96 Est GFR (MDRD) Non-Af 87 BUN/Creatinine Ratio 17.2 Glucose 101 H Calcium 9.6 Troponin T High Sens 52 H NT pro BNP II 420 Radiography Chest X-Ray - ED: 2 View, Read by ED Physician, Read by Radiologist, Mediastinum, Bony Structures, Chronic Changes, Cardiomegaly and CHF Diagnostic Testing: Clinical Impression(s) from Imaging Studies Chest X-Ray 01/25/25 10:54 IMPRESSION: Cardiomegaly with mild vascular congestion. Reading Location: [facility] Chest x-ray, 2 views, AP and lateral, interpreted by myself and radiology shows cardiomegaly with pulmonary edema consistent with CHF. Rhythm Strip Rhythm Strip: Paced Rate: 60 Ectopy: None EKG Initial EKG: Attestation: I personally reviewed and interpreted this EKG as follows: Interpretation: Paced Comments: Paced rhythm rate of 60. Discharge Plan Dx/Rx/DC Orders Clinical Impression: Acute dyspnea, Congestive heart failure, Pacemaker, S/P mitral valve repair, S/P tricuspid valve repair, S/P Maze operation for atrial fibrillation, Chronic anticoagulation Disposition Disposition: Acute Care Hospital [facility] What to do if you have Problems For any increased pain, shortness of breath, bleeding, nausea or vomiting, chestpain, or any unexpected problems, contact your Primary Care Provider. Call [facility] ([phone]) or report to the closest Emergency Room. Call 911 if necessary. 01/25/25 1252 <Electronically signed by Raymond Madrid MD> Cosigner Signature (if applicable): CC: [facility] ~ Signed [facility] Work Phone: 1(551) 797-983310-04-2025 History and physical note [facility] Medical Records Department [address] [place] [address] H&P Exam - Hospitalist 01/25/25 1323 MR#: [id number] Acct: [id number] Name: TRE QUIÑONES Rep #:[id number] : 1955 69 From: Juana Rodriguez MD PCP: [facility] Status:REG ER Location: ED HPI - General General Date of Admission: 01/25/25 Date of Service: 01/25/25 Chief Complaint: SOB HPI Narrative TRE QUIÑONES, is a 69-year-old male with a history of asthma, A-fib on Xarelto, pacemaker placement, mitral and tricuspid valve replacement, Maze procedure, hypertension, JOSÉ MIGUEL who presented to [facility] ED 01/25/25 for several days of increased shortness of breath and nonproductive cough. Denies any leg swelling and is afebrile. No chest pain. In the ED temp97.8, heart rate 59, blood pressure 155/69, respiratory rate initially 30 with pulse ox 96% on room air but decreased to 18, CBC with white count 6.5 and hemoglobin 13.1, BMP only notable for glucose of 101. Chest x-ray with cardiomegaly and mild vascular congestion, proBNP of 420, troponin of 52. Patient given steroids and nebs, he was also given a dose of Lasix, hospitalist contacted for admission due to his shortness of breath and respiratory distress. Patient evaluated at bedside. Symptoms have been present over the past 2 to 3 days and presented somewhat suddenly with wheezing and increased shortness of breath, has had a nonproductive cough since last night. No chest pain or fevers, no bowel or bladder changes. Little bit of nasal congestion now that nasal cannula is in place but no sore throat. also has a slight cough but no shortness of breath. He does feel little bit better after breathing treatments and steroids but still diffusely wheezing with shortness of breath. Patient denies any lower extremity swelling. [facility] Medical History History of pacemaker Wears hearing [...] with BMI of 40.0-44.9, adult Home Medications ?Medication ?Instructions ?Recorded ?Last Taken ?Type albuterol sulfate 90 mcg/actuation 2 puff inhalation Q 6H PRN PRN 07/21/17 07/18/17 History aerosol inhaler Wheezing/SOB lisinopril 20 mg tablet 20 mg PO DAILY 05/23/1810/24 History tadalafil 5 mg tablet 5 mg PO DAILY 12/19/2211/18 History cholecalciferol (vitamin D3) 50 50 mcg PO DAILY Unknown History mcg (2,000 unit) capsule eplerenone 25 mg tablet (Inspra) 12.5 mg (1/2 x 25 mg) PO DAILY #30 11/13/23 Unknown Rx tabs acetaminophen 325 mg capsule 325 mg PO ONCE PRN fever or pain 02/14/24 Unknown History diclofenac sodium 1 % topical gel 2 g topical ONCE PRN Arthritis Pain 02/14/24 Unknown History (Voltaren Arthritis Pain) empagliflozin 25 mg tablet 12.5 mg PO QAM 02/14/24 Unk nown History potassium gluconate 595 mg (99 mg) 595 mg PO QDAY 01/23 12/15 Unknown History tablet metoprolol succinate 50 mg 50 mg PO QDAY #90 tabs 02/23 Unknown Rx tablet,extended release 24 hr amoxicillin 500 mg capsule 2,000 mg PO ONCE PRN . 08/23 12/16 Unknown History rivaroxaban 20 mg tablet 20 mg PO QDAY 09/18/24 Unkno wn History furosemide 20 mg tablet 20 mg PO QAM 01/13/25 Unknow n History Allergy/AdvReac Type Severity Reaction Status Date / Time Environmental Allergies: Allergy wheezing, Verified 01/25/25 10:47 Uncoded (hay fever) cough Family History Mother [...] of servings: 5 and coffee ROS ROS Narrative General: Denies fever/chills HENT slight headache, denies sore throat EYES: Denies changes in vision Resp: D dry cough, increased shortness of breath and wheezing Cardiac: Denies chest pain GI: Denies abdominal pain, denies changes in bowel, denies nausea/vomiting : Denies changes in urination Extremity: Denies swelling MSK: Denies weakness Neuro: Denies any numbness/tingling Heme: Denies any bleeding or bruising Skin: Denies rashes Psychiatric: No complaints voiced Vital Signs Vital Signs Vital Signs: 01/25/25 10:47 01/25/25 11:00 01/25/25 11:00 Temperature 97.8 F Temperature Source Temporal Pulse Rate 59 L 62 Respiratory Rate 30 H 18 Respiratory Pattern Tachypnea Blood Pressure 155/69 H Blood Pressure Mean 97 Pulse Ox 96 94 Oxygen Delivery Method Room Air Nasal Cannula Oxygen Flow Rate (L/min) 2 01/25/25 11:28 01/25/25 12:00 01/25/25 13:00 Temperature Temperature Source Pulse Rate 60 60 Respiratory Rate 18 15 Respiratory Pattern Blood Pressure 110/50 L 139/66 H Blood Pressure Mean 70 90 Pulse Ox 95 97 Oxygen Delivery Method Nasal Cannula Room Air Oxygen Flow Rate (L/min) Physical Exam Narrative General: Alert, oriented, increased work of breathing HEENT: Atraumatic, normocephalic Eyes: Anicteric, normal conjunctiva, extraocular movements grossly intact Neck: Supple Respiratory: Poor airflow but diffuse wheezes and increased respiratory effort cardiovascular: Regular rate and rhythm GI: Nontender, protuberant Extremities: No pitting edema in extremities Musculoskeletal: Moving all extremities Neuro: No overt focal neurological deficits Skin: No rashes appreciated Psych: Cooperative Results Lab / Micro Data 01/25/25 11:06 01/25/25 11:06 Labs: Laboratory Results - last 24 hr 01/25/25 11:06: WBC 6.5, RBC 4.77, Hgb 13.1, Hct 41.2, MCV 86.4, MCH 27.5, MCHC 31.8 L, RDW Std Deviation 45.3 H, RDW Coeff of Mar 14.2, Plt Count 204, MPV 10.2, Immature Gran % (Auto) 0.200, Neut % (Auto) 59.5, Lymph % (Auto) 19.7, Vance % (Auto) 12.1 H, Eos % (Auto) 7.3 H, Baso % (Auto) 1.2 H, Absolute Neuts (auto) 3.9, Absolute Lymphs (auto) 1.27, Nucleated RBC % 0, Sodium 144, Potassium 4.2, Chloride 108, Carbon Dioxide 25.2, Anion Gap 11, BUN 16, Creatinine 0.96, Est GFR (MDRD) Non-Af 87, BUN/Creatinine Ratio 17.2, Glucose 101 H, Calcium 9.6, Troponin T High Sens 52 H, NT pro BNP II 420 Micro: Microbiology 01/25/25 11:20 Mucosa - Nose SARS-CoV-2, Influenza & RSV (PCR) - Final Rhythm Strip Rhythm Strip: Paced Rate: 60 Ectopy: None Imaging Radiology Impression Chest X-Ray 01/25/25 10:54 IMPRESSION: Cardiomegaly with mild vascular congestion. Reading Location: [facility] Assessment & Plan Assessment/Plan (1) Asthma exacerbation: PLAN: Plan #Acute exacerbation of asthma -Admit to floor, continuous O2 monitoring -Chest x-ray: No acute infiltrate, query mild vascular congestion -COVID ordered, obtain respiratory panel, sputum culture if able -O2 in place, wean as tolerated -IV methylprednisone -Scheduled DuoNebs -Albuterol prn -Antibiotics: Not indicated -Incentive spirometer -Mucinex -There was a question of if this was fluid overload, patient's BNP only 420 which makes heart failure unlikely and is actually lower than it was 5 months ago, no peripheral edema, chest x-ray queriedmild vascular congestion but patient still diffusely wheezing and symptoms seem consistent with asthma exacerbation - Recent echocardiogram 3 months ago with EF of 60% and moderate concentric leftventricular hypertrophy, PASP 42 mmHg -Patient received one-time dose of IV Lasix in the ED -Will monitor daily weights and I's and O's - Continue home medications # Elevated troponin - Possibly secondary to respiratory distress as he denies any chest pain - Did have heart cath October 2023 with essentially angiographically normal coronary arteries # History of mitral and tricuspid valve replacements/permanent pacemaker - Following on an outpatient basis - Patient is scheduled this week to get pacemaker battery recharged #Paroxysmal Atrial Fibrillation -Rate control: Will resume home rate control once med reconciliation available -Anticoagulation: Will continue home Xarelto #JOSÉ MIGUEL -Continue home CPAP if able, patient reports compliance #DVT ppx: Already on full dose anticoagulation Juana Rodriguez, MD Charges/Coding Visit Charges Inpatient E&M: 30850 Init Hosp L2 01/25/25 1336 Cosigner Signature (if applicable): CC: Dr. Juana Rodriguez MD; [facility]~ Signed [facility]10-04-2025 Discharge summary [facility] Medical Records Department [address] [place] [address] Emergency Department Summary 01/25/25 MR#: [id number] Acct: [id number] Name: TRE QUIÑONES Rep #:[id number] : 1955 69 From: Raymond Madrid MD PCP: [facility] Status:REG ER Location: ED HPI History of Present Illness Chief Complaint: Shortness of Breath Informant: patient and spouse/S.O. Onset/Context/Timing Onset: Days Context: gradual Timing: Continuous Quality: Positive for Wheezing Current Severity: Moderate Maximum Severity: Moderate Worsened by: Exertion and Coughing Relieved by: Nothing Associated Symptoms cough Chest Pain: Positive for None Narrative Narrative: 69-year-old male history of asthma, A-fib on Xarelto with pacemaker prior valve replacement with a pig valve. An open heart surgery. States has been short of breath last few days. Nonproductive cough. Afebrile. No chest pain. States she is wheezing. Denies any leg swelling. PE Risk Factors: Negative for Cancer, OCP + Smoking + > 35, Prior DVT or PE, Recent immobilization, Recent surgery or Recent travel Prior similar symptoms: Yes Recent Illness/Hospitalization: No PFSH PFSH Medical History History of pacemaker Wears [...] with BMI of 40.0-44.9, adult Home Medications ?Medication ?Instructions ?Recorded ?Last Taken ?Type albuterol sulfate 90 mcg/actuation 2 puff inhalation Q 6H PRN PRN 07/21/17 07/18/17 History aerosol inhaler Wheezing/SOB lisinopril 20 mg tablet 20 mg PO DAILY 05/23/1810/24 History tadalafil 5 mg tablet 5 mg PO DAILY 12/19/2211/18 History cholecalciferol (vitamin D3) 50 50 mcg PO DAILY Unknown History mcg (2,000 unit) capsule eplerenone 25 mg tablet (Inspra) 12.5 mg (1/2 x 25 mg) PO DAILY #30 11/13/23 Unknown Rx tabs acetaminophen 325 mg capsule 325 mg PO ONCE PRN fever or pain 02/14/24 Unknown History diclofenac sodium 1 % topical gel 2 g topical ONCE PRN Arthritis Pain 02/14/24 Unknown History (Voltaren Arthritis Pain) empagliflozin 25 mg tablet 12.5 mg PO QAM 02/14/24 Unk nown History potassium gluconate 595 mg (99 mg) 595 mg PO QDAY 01/23 12/15 Unknown History tablet metoprolol succinate 50 mg 50 mg PO QDAY #90 tabs 02/23 Unknown Rx tablet,extended release 24 hr amoxicillin 500 mg capsule 2,000 mg PO ONCE PRN . 08/23 12/16 Unknown History rivaroxaban 20 mg tablet 20 mg PO QDAY 09/18/24 Unkno wn History furosemide 20 mg tablet 20 mg PO QAM 01/13/25 Unknow n History Allergy/AdvReac Type Severity Reaction Status Date / Time Environmental Allergies: Allergy wheezing, Verified 01/25/25 10:47 Uncoded (hay fever) cough Family History Mother [...] servings: 5 and coffee ROS ROS ED ROS Narrative Short of breath. Wheezing. Mild nonproductive cough. No chest pain. No feveror chills. Constitutional Constitutional ED: Denies chills or fever(s) Eyes Eyes: Denies blurry vision ENT ENT ED: Denies ear pain Cardiovascular Cardiovascular: Denies chest pain Respiratory/Chest Respiratory/Chest: Reports cough and dyspnea Gastrointestinal Gastrointestinal: Denies abdominal pain Genitourinary Genitourinary ED: Denies dysuria or hematuria Musculoskeletal Musculoskeletal: Denies arthralgias Integumentary Denies abscess Neurologic Neurologic: Denies headache(s) Psychiatric Psychiatric: Denies anxiety Endocrine Endocrinology: Denies cold intolerance Hematologic/Lymphatic Hematologic/Lymphatic: Denies lymphadenopathy Allergic/Immunologic Allergic/Immunologic ED: Denies mouth swelling, tongue swelling or urticaria EXAM Physical Exam Narrative Exam Narrative: 69-year-old male sitting upright in bed. Vital signs are stable he is afebrile with pulse ox 96% onroom air no hypoxia. He is actively wheezing. Mildly labored breathing. at bedside. H EENT exam pupils round react light. Moist membranes. Neck nontender no JVD. No lymphadenopathy. Lungs expiratory wheezing. No rales or rhonchi. Equal symmetrical. Prolonged expiratory phase. Heart rate about 60 no murmur. Chest wall ribs nontender. Abdomen soft nontender. Moving all 4 extremities. Normal strength. Calves are nontender without edema or cords. Neurologically is awake and alert. Answering questionsfollowing commands. Back nontender. Const Vital Signs: 01/25/25 10:47 01/25/25 11:00 01/25/25 11:00 Temperature 97.8 F Temperature Source Temporal Pulse Rate 59 L 62 Respiratory Rate 30 H 18 Respiratory Pattern Tachypnea Blood Pressure 155/69 H Blood Pressure Mean 97 Pulse Ox 96 94 Oxygen Delivery Method Room Air Nasal Cannula Oxygen Flow Rate (L/min) 2 01/25/25 11:28 01/25/25 12:00 Temperature Temperature Source Pulse Rate 60 Respiratory Rate 18 Respiratory Pattern Blood Pressure 110/50 L Blood Pressure Mean 70 Pulse Ox 95 Oxygen Delivery Method Nasal Cannula Oxygen Flow Rate (L/min) MDM MDM MDM Narrative Medical decision making narrative: 69-year-old male with wheezing and nonproductive cough this could be a viral illness causing of bronchospasm versus rule out pneumonia versus cardiac etiology such as CHF. Undergo cardiac workup. Dueto his wheezing, given IV Solu- Medrol and DuoNeb and albuterol aerosols. Repeat exam patient's breathing is better at the aerosols and Solu-Medrol. Given his chest x-ray and labs I do think he has pulmonary edema may be from congestive heart failure. He will be given IV Lasix. I discussed with both he and his admission. They are comfortable with the plan. I spoke to the hospitalist. He will be admitted to the PCU. History & Record Review Discussion w/independent historian: Patient and Family Additional record(s) reviewed:: Prior inpatient record, Prior outpatient record,Prior ED visit and Prior labs Lab Data Attestation: I reviewed the patient's lab results. Lab results narrative: CBC shows a normal white count of 6.5. H&H 13 and 41. Platelets 204. Electrolytes show a gap of 11. Normal BUN and creatinine of 16 and 0.9. Glucose 101. Troponins mildly elevated at 52 and his BNP is elevated at 420. Chest x-ray is consistent with congestive heart failure. Labs: Laboratory Results - last 24 hr 01/25/25 11:06 WBC 6.5 RBC 4.77 Hgb 13.1 Hct 41.2 MCV 86.4 MCH 27.5 MCHC 31.8 L RDW Std Deviation 45.3 H RDW Coeff of Mar 14.2 Plt Count 204 MPV 10.2 Immature Gran % (Auto) 0.200 Neut % (Auto) 59.5 Lymph % (Auto) 19.7 Vance % (Auto) 12.1 H Eos % (Auto) 7.3 H Baso % (Auto) 1.2 H Absolute Neuts (auto) 3.9 Absolute Lymphs (auto) 1.27 Nucleated RBC % 0 Sodium 144 Potassium 4.2 Chloride 108 Carbon Dioxide 25.2 Anion Gap 11 BUN 16 Creatinine 0.96 Est GFR (MDRD) Non-Af 87 BUN/Creatinine Ratio 17.2 Glucose 101 H Calcium 9.6 Troponin T High Sens 52 H NT pro BNP II 420 Radiography Chest X-Ray - ED: 2 View, Read by ED Physician, Read by Radiologist, Mediastinum, Bony Structures, Chronic Changes, Cardiomegaly and CHF Diagnostic Testing: Clinical Impression(s) from Imaging Studies Chest X-Ray 01/25/25 10:54 IMPRESSION: Cardiomegaly with mild vascular congestion. Reading Location: [facility] Chest x-ray, 2 views, AP and lateral, interpreted by myself and radiology shows cardiomegaly with pulmonary edema consistent with CHF. Rhythm Strip Rhythm Strip: Paced Rate: 60 Ectopy: None EKG Initial EKG: Attestation: I personally reviewed and interpreted this EKG as follows: Interpretation: Paced Comments: Paced rhythm rate of 60. Discharge Plan Dx/Rx/DC Orders Clinical Impression: Acute dyspnea, Congestive heart failure, Pacemaker, S/P mitral valve repair, S/P tricuspid valve repair, S/P Maze operation for atrial fibrillation, Chronic anticoagulation Disposition Disposition: Acute Care Hospital [facility] What to do if you have Problems For any increased pain, shortness of breath, bleeding, nausea or vomiting, chestpain, or any unexpected problems, contact your Primary Care Provider. Call [facility] ([phone]) or report tothe closest Emergency Room. Call 911 if necessary. 01/25/25 1252 Cosigner Signature (if applicable): CC: [facility] ~ Signed [facility]10-04-2025 Radiology Diagnostic study note [facility] Imaging Services [address] [place] [address] Chest PA and Lateral MR#: [id number] Acct: [id number] Name: TRE QUIÑONES Rep #: [id number] : 1955 M 69 From: Christian Jaffe MD PCP: [facility] Status: REG ER Study:Chest PA and Lateral Date of Exam: 01/25/25 Exam# [id number] Ordering Dr: Natacha Madrid MD PROCEDURE: CHEST PA AND LATERAL 01/25/2025 REASON FOR EXAM: CHEST PAIN TECHNIQUE: Procedure Code: RADCXR Modality: DX Procedure: CHEST PA AND LATERAL COMPARISON: 08/13/2024 FINDINGS: LINES: Left-sided pacemaker device with right atrial and right ventricular leads. LUNGS AND PLEURA: No focal airspace consolidation. No pleural effusion or pneumothorax. HEART AND MEDIASTINUM: The cardiac silhouette is mildly enlarged. The mediastinal contour is normal. Median sternotomy wires and an AtriClip are present. PULMONARY VESSELS: Mild prominence of the central pulmonary vasculature. BONES: No acute osseous abnormality. RAD/Chest PA and Lateral IMPRESSION: Cardiomegaly with mild vascular congestion. Reading Location: [id number] CC: Dr. Raymond Madrid MD; [facility] ~ Supervisor Engraving: Signed [facility]09-22-2025 Procedure [facility] [address] [place] [address] Pacemaker Check Date of Service: 01/13/251737 MR#: [id number] Acct: [id number] Name: TRE QUIÑONES Rep #: [id number] : 1955 From: Jolene cullen Age/Sex: 69/M Location: [facility] Status: Signed Billing Codes PM Device Codes: 22504 PM Dev Prog Eval, Dual Assessment and Plan Assessment and Plan (1) shelter current use of anticoagulant: Status: Acute (2) Presence of left atrial appendage closure device: Status: Acute Comment: 01/23/2024 (3) S/P Maze operation for atrial fibrillation: Status: Acute Comment: 01/23/2024 (4) Sick sinus syndrome: Status: Chronic (5) Atypical atrial flutter: Status: Chronic Comment: RFA 2005, 2017, 2019 (6) Presence of permanent cardiac pacemaker: Status: Chronic 01/13/25 1747 > Date _ Jolene Staples Signature: Date (if applicable) CC: ~ [facility]09-22-2025 Evaluation note* Diagnosis Onset Date Resolution Status Admit Date shelter current use of anticoagulant acute January 13, 2025 1:12pm Presence of left atrial appendage closure device acute Septemb er 2024 1:12pm S/P Maze operation for atrial fibrillation acute January 132024 1:12pm Atypical atrial flutter chronic S eptember 2024 1:12pm Presence of permanent cardiac pacemaker December 01, 2017 chronic January 132024 1:12pm Sick sinus syndrome chronic Septe mber 2024 1:12pm Dyspnea on exertion acute Septe mber 2024 1:18pm S/P mitral valve repair acute S eptember 2024 1:18pm Atypical atrial flutter chronic S eptember 2024 1:18pm Essential (primary) hypertension chronic January 13, 2025 1:18pm Presence of permanent cardiac pacemaker December 01, 2017 chronic January 132024 1:18pm S/P tricuspid valve repair chronic January 13, 2025 1:18pm [facility] Work Phone: 1(926) 528-427309-22-2025 Evaluation note* Diagnosis Onset Date Resolution Status Admit Date [employer]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 January 13, 2025 1:12pm Presence of left atrial appendage closure device acute Septemb er 2024 1:12pm S/P Maze operation for atrial fibrillation acute January 132024 1:12pm Atypical atrial flutter chronic S eptember 2024 1:12pm Presence of permanent cardiac pacemaker December 01, 2017 chronic January 132024 1:12pm Sick sinus syndrome chronic Septe mber 2024 1:12pm Dyspnea on exertion acute Septe mber 2024 1:18pm S/P mitral valve repair acute S eptember 2024 1:18pm Atypical atrial flutter chronic S eptember 2024 1:18pm Essential (primary) hypertension chronic January 13, 2025 1:18pm Presence of permanent cardiac pacemaker December 01, 2017 chronic January 132024 1:18pm S/P tricuspid valve repair chronic January 13, 2025 1:18pm Asthma exacerbation acute Octob er 2024 1:23pm Chronic anticoagulation acute O ctober 2024 1:23pm [facility] Work Phone: 1(125) 193-728909-22-2025 Evaluation note* Diagnosis Onset Date Resolution Status Admit Date shelter current use of anticoagulant acute January 13, 2025 1:12pm Presence of left atrial appendage closure device acute Septemb er 2024 1:12pm S/P Maze operation for atrial fibrillation acute January 132024 1:12pm Atypical atrial flutter chronic S eptember 2024 1:12pm Presence of permanent cardiac pacemaker December 01, 2017 chronic January 132024 1:12pm Sick sinus syndrome chronic Septe er 2024 1:12pm Dyspnea on exertion acute Septe [facility] 2024 1:18pm S/P mitral valve repair acute S eptember 2024 1:18pm Atypical atrial flutter chronic S eptember 2024 1:18pm Essential (primary) hypertension chronic January 13, 2025 1:18pm Presence of permanent cardiac pacemaker December 01, 2017 chronic January 132024 1:18pm S/P tricuspid valve repair chronic January 13, 2025 1:18pm Asthma exacerbation acute Octob er 2024 1:23pm Chronic anticoagulation acute O ctober 2024 1:23pm Cardiac arrest with successful resuscitation acute February 11, 2025 9:38am Pacemaker acute February 11, 2025 9:38am Presence of left atrial appendage closure device acute February 11, 2025 9:38am S/P Maze operation for atrial fibrillation acute January 9:38am S/P mitral valve repair acute O ctober 2024 9:38am S/P tricuspid valve repair chronic February 11, 2025 9:38am [facility] Work Phone: 1(792) 809-330809-22-2025 [facility] [address] [place], [place] [address] OFFICE VISIT Date of Service: 01/13/25 MR#: [id number] Acct: [id number] Name: TRE QUIÑONES Rep #: [id number] : 1955 Provider: JOHNNA Deleon Age/Sex: 69/M Location: [facility] Status: Signed HPI HPI History of [...] and flutter. [facility] was [facility]. The more recent evaluation demonstrated areas of atrial flutter in the tricuspid annulus region. He also subsequently had a permanent pacemaker implanted after his radio frequency ablation in 2017. He had started experiencingmore atrial arrhythmias once again and he was sent backto [facility]. It was felt after discussing all the options that the sotalol should be discontinued and he was started on amiodarone. He had been following up at the [facility] due to insurance issues. He had a stress test in 2020. He did have an echocardiogram performed on September [address] [facility] and he was recorded to have a moderately dilated left ventricle with estimated ejection fractionof 60 to 65% right ventricle with a pacemaker placed in mitral valve which was normal with severe mitral regurgitation. He had echocardiogram in October 2023 at [facility] that showed ejection fraction of 60% and moderately severe eccentric mitral valve insufficiency. Transesophageal echocardiogram on 11/21/2023 showed severe mitral valve insufficiency. Heart catheterization on 11/21/2023 showed angiographically normal coronary arteries. He was seen with [facility], Dr. Diamond in January 2024. Mitral valve [...] 1 Y FU (PPM F/U LEANN 1:30) Design Maker Required: No Accompanied by: Self Is patient [...] enlarged right atrium, and pulmonary artery systolic [id number] mmHg. He will continue current medical therapy [...] updated, as necessary. Follow Up: 12-15 Months (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 SERVICER) 6 Months (SAP PPM CONSULTANT/PA) Coding Level of Care Code Off vis,est,level [...] Ejection fraction %: 60 01/13/25 1452 P JOHNNA> Date _ Evelyn OROPEZA Cosigner Signature: Date (if applicable) CC: [facility]09-22-2025 Progress note Author Evelyn Deleon [facility] Note Date/Time January 13, 2025 2:41pm [facility] [address] [place] [address] OFFICE VISIT Date of Service: 01/13/25 MR#: [id number] Acct: [id number] Name: TRE QUIÑONES Rep #: [id number] : 1955 Provider: JOHNNA Deleon Age/Sex: 69/M Location[place] [facility] Status: Signed HPI HPI History of [...] and flutter. He was [facility] to [facility]. The more recent evaluation demonstrated areas of atrial flutter in the tricuspid annulus region. He also subsequently had a permanent pacemaker implanted after his radio frequency ablation in 2017. He had started experiencing more atrial arrhythmias once again and he was sent backto [facility]. It was felt after discussing all the options that the sotalol should be discontinued and he was started on amiodarone. He had been following up at the [facility] due to insurance issues. He had a stress test in 2020. He did have an echocardiogram performed on September [address] [facility] and he was recorded to have a moderately dilated left ventricle with estimated ejection fraction of 60 to 65% right ventricle with a pacemaker placed in mitral valve which was normal with severe mitral regurgitation. He had echocardiogram in October 2023 at [facility] that showed ejection fraction of 60% and moderately severe eccentric mitral valve insufficiency. Transesophageal echocardiogram on 11/21/2023 showed severe mitral valve insufficiency. Heart catheterization on 11/21/2023 showed angiographically normal coronary arteries. He was seen with [facility], Dr. Diamond in January 2024. Mitral valve [...] function 55?5%, mildly dilated right ventricle, #33 [place] mitral valve annuloplasty ring with trace mitral [...] 1 Y FU (PPM F/U LEANN 1:30) Design Maker Required: No Accompanied by: Self Is patient [...] enlarged right atrium, and pulmonary artery systolic eemigljb24 mmHg. He will continue current medical therapy [...] updated, as necessary. Follow Up: 12-15 Months (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 SERVICER) 6 Months (SAP PPM CONSULTANT/PA) Coding Level of Care Code Off vis,est,level [...] <Electronically signed by Evelyn Deleon N P SAP PPM CONSULTANT-C> Date _ Evelyn Deleon NP SAP PPM CONSULTANT-C Cosigner Signature: Date (if applicable) CC: [facility] ~ [facility] Work Phone: 1(441) 186-417908-21-2025 History of Present illness Narrative* Jerardo Porras [...] IMPLANT DATA REVIEWED: Yes MR Conditional CIED [employer] Remote programming PATIENT PRESENTS WITH AN IMPLANTABLE OR ATTACHED PIECE GOODS CLERK: No RADIOLOGY DEPARTMENT: MR; Exam(s) Completed: Lower MSK: Ankle/Hind Foot, right . Aromatherapy Administered: No PERIPHERAL IV DATA: Not applicable Images approved by Dr. Olivo @11:18 am SIGNED BY: RT Prachi(R) December 12, 2024 10:55 AM documented in this encounterWilson Health08-21-2025 NoteHNO ID: [id number] Author: JERARDO PORRAS RT(R) Service: Radiology Author [...] IMPLANT DATA REVIEWED: Yes MR Conditional CIED [employer] Remote programming PATIENT PRESENTS WITH AN IMPLANTABLE OR ATTACHED PIECE GOODS CLERK: No RADIOLOGY DEPARTMENT: MR; Exam(s) Completed: Lower MSK: Ankle/Hind Foot, right . Aromatherapy Administered: No PERIPHERAL IV DATA: Not applicable Images approved by Dr. Olivo @11:18 am SIGNED BY: RT Prachi(R) December 12, 2024 10:55 [facility]08-21-2025 NoteHNO ID: [id number] Author: MADY BLUNT RN Service: Nursing Author [...] REVIEWED: YES PROCEDURE: MRI - Conditional Pacemaker [employer] Residential Therapist Device - Settings: VOO 70 bpm Physiologic monitoring per standard operating procedure. See vital sign flowsheet. PATIENT TOLERATED PROCEDURE: Without incident. PATIENT DISCHARGED TO: Home/Self Care SIGNED BY: Mady Blunt [facility]08-21-2025 Procedure note* Mady Blunt RN - [...] REVIEWED: YES PROCEDURE: MRI - Conditional Pacemaker [employer] Residential Therapist Device - Settings: VOO 70 bpm Physiologic monitoring per standard operating procedure. See vital sign flowsheet. PATIENT TOLERATED PROCEDURE: Without incident. PATIENT DISCHARGED TO: Home/Self Care SIGNED BY: Mady Blunt RN [facility]08-21-2025 Procedure note* Mady Blunt RN - 12/12/2024 [...] REVIEWED: YES PROCEDURE: MRI - Conditional Pacemaker [employer] Residential Therapist Device - Settings: VOO 70 bpm Physiologic monitoring per standard operating procedure. See vital sign flowsheet. PATIENT TOLERATED PROCEDURE: Without incident. PATIENT DISCHARGED TO: Home/Self Care SIGNED BY: Mady Blunt RN documented in this encounterWilson Health07-11-2025 History of Present illness Narrative* Denny Cifuentes [...] family history on file. documented in this [facility]05-28-2025 Evaluation note* Diagnosis Onset Date Resolution Status Admit Date Dyspnea on exertion acute August 232024 11:24am S/P mitral valve repair acute M ay 2024 11:24am Atypical atrial flutter chronic M ay 2024 11:24am Essential (primary) hypertension chronic September 18, 2024 11:24am Presence of permanent cardiac pacemaker December 01, 2017 chronic September 18 11:24am S/P tricuspid valve repair chronic September 18, 2024 11:24am [facility] Work Phone: 1(285) 992-512211-11-2024 Telephone encounter Note* Telephone Encounter - Mikaela Pantoja RN - 03/04/2024 1:43 PM EST Images from the original note were not included. [facility] Phone Encounter DATE of SERVICE: 03/04/2024 TIME of SERVICE: 1:43 PM Status: [facility] Service/Provider: Cardiac Surgery Tunde Diamond M.D. Reason for call: Shortness of Breath Contact information: [phone] Resolution: Reinforced education Comments: patient called to [...] further evaluation at local ER. Patient agreeable. Mikaela Pantoja RN Date of Resolution: 03/04/2024 Time of Resolution 1:43 PM [facility]11-11-2024 Miscellaneous Notes* Telephone Encounter - Mikaela Pantoja RN - 03/04/2024 1:43 PM EST Images from the original note were not included. [facility] Phone Encounter DATE of SERVICE: 03/04/2024 TIME of SERVICE: 1:43 PM Status: FY Service/Provider: Cardiac Surgery Tunde Diamond M.D. Reason for call: Shortness of Breath Contact information: [phone] Resolution: Reinforced education Comments: patient called to [...] further evaluation at local ER. Patient agreeable. Mikaela Pantoja RN Date of Resolution: 03/04/2024 Time of Resolution 1:43 PM documented in this encounterWilson Health10-15-2024 Instructions* Patient Instructions* Liz Madsen APRN.CNP - 02/06/2024 9:04 AM EDT Follow up with PCP next week with repeat cbc and cmp to monitor trends. Follow up with chief of safety and protection in 4-6 weeks with consideration of repeat echo.Cardiology to determine clearance for return to work and order Cardiac Rehab Phase II if not already given at the time of discharge. No further refills unless specified by local providers. documented in this encounterWilson Health10-15-2024 History of Present illness Narrative* Liz Madsen APRN.CNP - 02/06/2024 9:00 AM EDT Images from the original note were not included. [facility] Department of Cardiovascular Medicine DEPARTMENT [...] and walking - follow up with local [employer] T[employer] Selector for further medical management CXR: 02/06/2024 RESULT: [...] cmp to monitor trends. Follow up with chief of safety and protection in 4-6 weeks with consideration of repeat [...] prophylaxis reviewed Discussed wound care Liz Madsen APRN.NADEEN documented in this encounterWilson Health10-15-2024 NoteHNO ID: [id number] Author: LIZ MASDEN APRN.NADEEN Service: ? Author Type: Nurse Practitioner Type: Progress Notes Filed: 02/06/2024 17:04 Note Text: [facility] Department of Cardiovascular Medicine DEPARTMENT [...] Exam: BP 105/56 Pulse 70 Temp 37.3 ?C (99.1 ?F) (Temporal) Resp 16 Ht 182.9 cm (6') Wt (!) 146.1 kg (322 lb) SpO2 95% BMI 43.67 kg/m? Appearance: well developed, obese, white male, in [...] from chest tube sites without difficulty. IMPRESSION AND PLAN: 1.S/P on 01/23/2024 [facility] Surgeon: Phillip [...] difficult exam due to bandages/chest tubes/wound and (more content not included)...[facility]10-15-2024 History of Present illness Narrative* Africa Galvin [...] PATIENT PRESENTS WITH AN IMPLANTABLE OR ATTACHED PIECE GOODS CLERK: No RADIOLOGY DEPARTMENT: General X-ray: Exam(s) Completed: Chest X-Ray PERIPHERAL IV DATA: Not applicable SIGNED BY: RT George(Mai) February 06, 2024 8:14 AM documented in this encounterWilson Health10-15-2024 NoteHNO ID: [id number] Author: AFRICA GALVIN RT(Mai) Service: Radiology Author Type: Technologist Type: Progress Notes Filed: 02/06/2024 08:14 Note Text: Radiology Service Progress Note PATIENT [...] PATIENT PRESENTS WITH AN IMPLANTABLE OR ATTACHED PIECE GOODS CLERK: No RADIOLOGY DEPARTMENT: General X-ray: Exam(s) Completed: Chest X-Ray PERIPHERAL IV DATA: Not applicable SIGNED BY: RT George(R) February 06, 2024 8:14 [facility]10-09-2024 Telephone encounter Note* Telephone Encounter - Broderick Ng RN - 01/31/2024 12:12 PM EDT 1. [...] Pt instructed to contact 24-hour nurse hotline [phone] for any questions or concerns. Pt verbalized understanding. PD nurse confirmed/verified patient's and full name. All clear, closing statement given. Broderick Ng RN [facility]10-09-2024 Miscellaneous Notes* Telephone Encounter - Broderick Ng RN - 01/31/2024 12:12 PM EDT 1. [...] Pt instructed to contact 24-hour nurse hotline [phone] for any questions or concerns. Pt verbalized understanding. PD nurse confirmed/verified patient's and full name. All clear, closing statement given. Broderick Ng RN documented in this encounterWilson Health09-30-2024 History of Present illness Narrative* Phillip Diamond MD - 01/22/2024 11:04 AM EDT Images from the original note were not included. [facility] DEPARTMENT OF CARDIAC SURGERY OUTPATIENT VISIT DATE January 22, 2024 OUTPATIENT VISIT SERVICE DATE: 01/22/2024 SERVICE TIME: 11:08 AM PCP: Omer Wray ([facility]) [address] [facility] [address] [place] [address] Referring Physician: Phillip Diamond [facility] [address] Patient Type: New Visit to Determine Surgery: [...] minimal luminal caliber throughout = 12 mm Supervisor Engraving[facility] Transcribe Date/Time: Jan 19 2024 10:29A [...] record Phillip Diamond MD documented in this encounterWilson Health09-30-2024 History of Present illness Narrative* Gasper Alejandre, MICHAEL - 01/22/2024 9:41 AM EDT AMBULATORY PATIENT [...] check in for surgery documented in this encounterWilson Health09-30-2024 History of Present illness Narrative* Jw Talley [...] s/p typical atrial flutter/PAT RFA in 2005 (Gordon), with redo in 2007, s/p CTI and [...] age 82) Father other ( from [place] effects multiple cancers) Father Prostate Cancer Father [...] 01/19/24 8:50 AM Impression IMPRESSION: See Result. Supervisor Engraving: CH[employer]ST[employer] Transcribe Date/Time: Jan 19 2024 11:03A [...] and consent discussed: yes. Patient / Responsible Libertarian agrees to proceed: yes Patient / Surrogate [...] 6:51 AM Pager/Contact #: documented in this encounterWilson Health09-30-2024 History of Present illness Narrative* Gasper Alejandre [...] age 82) Father other ( from [place] effects multiple cancers) Father Prostate Cancer Father [...] , Dental Clearance DERM: Denies Dermatological Complaints FUNDING SPECIALIST: dizziness frederick RESP: sob josé miguel CARD: [...] minimal luminal caliber throughout = 12 mm Supervisor Engraving: CHRIST[employer]ER Transcribe Date/Time: Jan 19 2024 10:29A Dictated by : LUKE JOHNSON MD This examination was interpreted and the report reviewed and electronically signed by: LUKE JOHNSON MD on Jan 19 2024 10:47AM EST MRI: CXR: XR CHEST 2V FRONTAL/LAT Result Date: 01/19/2024 IMPRESSION: See Result. Supervisor Engraving[facility] Transcribe Date/Time: Jan 19 2024 11:03A Dictated [...] and Physical dated 01/19/2024 documented in this encounterWilson Health09-27-2024 History of Present illness Narrative* Zack Abbasi RRT - 01/19/2024 2:59 PM EDT PULM FUNCTION: Provider: Phillip Diamond MD Spirometry: 1 DLCO: 1 documented in this encounterWilson Health09-27-2024 Instructions* Patient Instructions* Victor Hugo Christian DO - 01/19/2024 1:15 PM EDT Hold off Jardiance prior to surgery documented in this encounterWilson Health09-27-2024 History of Present illness Narrative* Moiz Koenig MD - 01/19/2024 12:15 PM EDT Images from the original note were not included. [facility] Department of Cardiovascular Medicine SECTION OF CARDIOVASCULAR IMAGING OUTPATIENT VISIT DATE 01/19/2024 OUTPATIENT VISIT TYPE CONSULTATION REFERRING PHYSICIAN Phillip Diamond [address] [place], [place] [id number] CHIEF COMPLAINT: Pre-operative evaluation. HISTORY OF PRESENT [...] s/p typical atrial flutter/PAT RFA in 2005 (Gordon), with redo [id number], s/p CTI and atypical atrial flutter RFA [...] age 82) Father other ( from [place] effects multiple cancers) Father Prostate Cancer Father [...] minimal luminal caliber throughout = 12 mm Supervisor Engraving[facility] Transcribe Date/Time: Jan 19 2024 10:29A [...] ICD10: I34.1 Victor Hugo Christian DO Resident [facility] STAFF PHYSICIAN NOTE OF PERSONAL INVOLVEMENT IN CARE Mr. Quiñones has NYHA III symptoms of dyspnea and fatigue due to severe mitral regurgitation related to prolapse and restricted posterior leaflet. He has longstanding AF issues. He has a class I indication for proceeding to proposed mitral valve surgery with Dr. Diamond. If Mr. Quiñones chooses to have follow-up at [facility], I would be happy to see him. [...] PHYSICIAN: Moiz Koenig MD documented in this encounterWilson Health09-27-2024 History of Present illness Narrative* Dejah Alberts [...] PATIENT PRESENTS WITH AN IMPLANTABLE OR ATTACHED PIECE GOODS CLERK: No RADIOLOGY DEPARTMENT: CT; Exam(s) Completed: Cardiac PERIPHERAL IV DATA: Site assessment: Clean,Dry and Intact, Site disposition Discontinued SIGNED BY: RT Ilene(R) January 19, 2024 10:20 AM documented in this encounterWilson Health09-27-2024 History of Present illness Narrative* Africa Galvin [...] PATIENT PRESENTS WITH AN IMPLANTABLE OR ATTACHED PIECE GOODS CLERK: No RADIOLOGY DEPARTMENT: General X-ray: Exam(s) Completed: Chest X-Ray PERIPHERAL IV DATA: Not applicable SIGNED BY: RT George(R) January 19, 2024 8:50 AM documented in this encounterWilson Health08-16-2024 Telephone encounter Note * Telephone Encounter - Africa Wang RN - 12/08/2023 12:05 PM EDT OPD 01.18, Kiya held . @ [facility], OHS 10.. Please send schedule + Dental [...] if outside cath not ordered- done outside: [employer]- Get Images 11.21.2023 Redo OHS/Robotic surgery/radiation to [...] and general knowledge given to pt n/a [facility]08-16-2024 Miscellaneous Notes* Telephone Encounter - Africa Wang RN - 12/08/2023 12:05 PM EDT OPD 9.27, Kiya held 9.30 @ 1200, OHS 10.1. Please send schedule [...] if outside cath not ordered- done outside: [facility]- [facility] 11.21.2023 Redo OHS/Robotic surgery/radiation to [...] ordered Valve/TAVR/TEVAR/Myectomy/ascending aorta Dental clearance/Dental Consult at [facility] discussed CABG surgery with previous CABG/varicose vein/vein [...] - 12/06/2023 3:32 PM EDT Records in [employer], Images on [employer]. To NPM * Telephone Encounter - Yvonne Silva - 12/06/2023 3:32 PM EDT Patient was referred to Dr. Diamond by Dr. Wray for MVR. documented in this encounterWilson Health08-14-2024 Telephone encounter Note * Telephone Encounter - Africa Wang RN - 12/06/2023 4:19 PM EDT To [facility] for review: moderate-severe MR/mild posterior MAC, mild TR, A-Fib/Flutter (ablations 2005, 2017, 2018) [facility]08-14-2024 Telephone encounter Note* Telephone Encounter - Yvonne Silva - 12/06/2023 3:32 PM EDT Records in [facility], Images on [employer]. To NPM [facility]08-14-2024 Telephone encounter Note* Telephone Encounter - Yvonne Silva - 12/06/2023 3:32 PM EDT Patient was referred to Dr. Diamond by Dr. Wray for MVR. [facility]12-11-2023 Discharge summary Author Jerardo Millan [facility] April 03, 2023 11:21am Note Date/Time April 03, 2023 11:18am [facility] Medical Records Department [address] [place] [address] Instructions for Home/Discharge Instructions 04/03/23 1115 MR#: [id number] Acct: [id number] Name: QUIÑONESTRE Imtiaz Rep #:[id number] : 1955 68 From: Jerardo Kitchen PCP: [facility] Status:REG [facility] Discharge Instructions Diet Discharge Diet: No restrictions [...] Attending Provider: Jerardo Millan Primary Care Provider: [facility] Consulting Providers: Sherif Kiser Instructions Additional Instructions [...] Referrals / Follow Up: Jerardo Millan MD [[facility] Staff - Active Staff] - [facility] Doctor,Out of [Non-Staff] - Disposition Disposition (needs filled in before D/C Order can be placed): Home, Self Care 04/03/23 1121<Electronically signed by Jerardo Millan MD>Jerardo Millan MD CC: Dr. Sherif Kiser MD; [facility] ~ Signed [facility] Work Phone: [phone] 475-992112-11-2023 History and physical note Author Jerardo Millan [facility] April 03, 2023 7:27am Note Date/Time April 03, 2023 7:27am [facility] Medical Records Department [address] [place] [address] History & Physical Exam 04/03/23 0725 MR#: [id number] Acct: [id number] Name: TRE QUIÑONES Rep #:[id number] : 1955 68 From: Jerardo Kitchen PCP: [place] [place] Status:[facility] Location: [place] [address] History and Physical Date of Admission: 04/03/23 Date of Service: 03/22/23 MR#: [id number] Acct: [id number] Name: TRE QUIÑONES Rep #: [id number] : 1955 Provider: Dr. Jerardo Millan MD Age/Sex: 68/M Location: [facility] Status: Signed Intake Vital Signs 12/20/2319:59 03/22/2308:22 [...] mg PO QHS 03/20/23 [History Confirmed 03/22/23] PFSH Medical History Acute posterior anal fissure Anxiety [...] adds that he was doing some riding [employer] Systemshe day after his hospital discharge. He states [...] changes are noted:Date of Service: 03/22/23 MR#: [id number] Acct: [id number] Name: TRE QUIÑONES Rep #: [id number] : 1955 Provider: Dr. Jerardo Millan MD Age/Sex: 68/M Location: [facility] Status: Signed Intake Vital Signs 12/20/2319:59 03/22/2308:22 [...] for umbilical hernia repair as discussed above 04/03/23726 <Electronically signed by Jerardo Millan MD> Cosigner Signature (if applicable): CC: Dr. Jerardo Millan MD; [facility] Hospital~ Signed [facility] Work Phone: 1(765) 593-719008-29-2023 Consult note Author Kenzie Hilliard [facility] December 20, 2022 3:11pm Note Date/Time December 20, 2022 3: 11pm [facility] Medical Records Department [address] [place] [address] Counseling Note - Pharmacy 12/20/22 1510 MR#: [id number] Acct: [id number] Name: TRE QUIÑONES Rep #:[id number] : 1955 67 From: Kenzie Hilliard PCP: [facility],[place] Status:ADM NYDIA Y Location: [place] [address] Pharmacy [facility] Pharmacy Service has performed discharge medication [...] Signature (if applicable): Date CC: ~ Signed [facility] Work Phone: 1(154) 507-744908-29-2023 Discharge summary Author Becky Jaimes [facility] December 20, 2022 2:49pm Note Date/Time December 20, 2022 9: 48am [facility] Medical Records Department [address] [place] [address] Instructions for Home/Discharge Instructions 12/20/22 0905 MR#: [id number] Acct: [id number] Name: TRE QUIÑONES Rep #:[id number] : 1955 67 From: Becky MENSAH PA-C PCP: [facility],[place] Status:ADM NYDIA Discharge Instructions Diet Discharge Diet: [...] weeks following your surgery date. Please call [phone] for an appointment. Test Results: Test results from this visit will be discussed in further detail at your follow- up appointment, if applicable. Discharge Plan Admission Admit Date/Time: 12/19/22 18:26 Primary Reason for Your Visit: Incarcerated umbilical hernia Attending Provider: Jerardo Millan Primary Care Provider: [place] [place] Consulting Providers: Juana Rodriguez Instructions Additional Instructions [...] our office to schedule an appointment at [phone] or if any questions or concerns Discharge [...] a 2 week follow-up with Dr. Millan) [place] [place] [Primary Care Provider] - Disposition Disposition (needs filled in before D/C Order can be placed): Home, Self Care 12/20/22 1449<Electronically signed by Becky MENSAH PA-C>Becky MENSAH PA-C CC: Dr. Juana Rodriguez MD; [facility] ~ Signed [facility] Work Phone: 1(502) 141-746808-29-2023 Progress note Author Skyler Howard [facility] December 20, 2022 1:43pm Note Date/Time December 19, 2022 5: 55pm [facility] System Medical Records Department [address] [place] [address] Progress Note - Hospitalist 12/19/22 1750 MR#: [id number] Acct: [id number] Name: TRE QUIÑONES Rep #:[id number] : 1955 67 From: Skyler douglas MD PCP: [place] [place] Status:ADM NYDIA Location: [place] [address] Subjective Subjective 7-year-old male presents to the [...] % (Auto) 69.7, Lymph % (Auto) 21.0, Vance % (Auto) 6.9, Eos % (Auto) 1.0, [...] Charges/Coding Visit Charges Office Visits / Consults: 95724 OV L3 New 12/20/22 1343 <Electronically signed by Skyler Howard MD> Cosigner Signature (if applicable): CC: ~ Signed [facility] Work Phone: 1(556) 281-704808-29-2023 Progress note Author Juana Rodriguez [facility] December 20, 2022 9:53am Note Date/Time December 20, 2022 8: 56am [facility] Medical Records Department [address] [place] [address] Progress Note - Hospitalist 12/20/22 0856 MR#: [id number] Acct: [id number] Name: QUIÑONESTRE Rep #:[id number] : 1955 67 From: Juana Rodriguez MD PCP[facility] Status:ADM NYDIA Location: [place] [address] Reason for Visit Reason for Visit: Diagnoses [...] % (Auto) 69.7, Lymph % (Auto) 21.0, Vance % (Auto) 6.9, Eos % (Auto) 1.0, [...] % (Auto) 68.6, Lymph % (Auto) 20.1, Vance % (Auto) 9.5, Eos % (Auto) 0.8, [...] starting tomorrow Charges/Coding Visit Charges Inpatient E&M: 47568 Subs Hosp L1 12/20/22 0953 <Electronically signed by Juana Rodriguez MD> Cosigner Signature (if applicable): CC: ~ Signed [facility] Work Phone: [phone]) 915-551508-29-2023 Procedure [facility] 12-20-2022 Progress note Author Becky Jaimes [facility] December 20, 2022 9:04am Note Date/Time December 20, 2022 8: 55am [facility] Medical Records Department [address] [place] [address] Progress Note - Surgery 12/20/22 0853 MR#: [id number] Acct: [id number] Name: QUIÑONESTRE COYLE Imtiaz Rep #:[id number] : 1955 67 From: Becky MENSAH PA-C PCP: [facility],[place] Status:ADM NYDIA Location: [place] [address] Subjective Subjective Patient is a 67 y/o [...] % (Auto) 69.7, Lymph % (Auto) 21.0, Vance % (Auto) 6.9, Eos % (Auto) 1.0, [...] % (Auto) 68.6, Lymph % (Auto) 20.1, Vance % (Auto) 9.5, Eos % (Auto) 0.8, [...] Hospitalist input Charges/Coding Visit Charges Inpatient E&M: 24060 Subs Hosp L1 (Post-op) 12/20/22 0904 <Electronically signed by Becky MENSAH PA-C> Cosigner Signature (if applicable): CC: ~ Signed [facility] Work Phone: [phone]) 855-919608-28-2023 History and physical note Author Jerardo Millan [facility] December 19, 2022 5:29pm Note Date/Time December 19, 2022 5: 30pm [facility] Medical Records Department [address] [place] [address] History & Physical Exam 12/19/221714 MR#: [id number] Acct: [id number] Name: TRE QUIÑONES Rep #:[id number] : 1955 67 From: Jerardo Kitchen PCP: [facility],[place] Status:[facility] Location: [facility] A-3 HPI - General General Date of Admission: 12/19/22 Date of Service: 12/19/22 Chief Complaint: Acute onset and bulging at umbilical hernia HPI Narrative TRE QUIÑONES, is a 67 M who presents to [facility] ER with c/o acute ab pain and [...] He has no prior abdominal surgical history. [facility] Medical History (Updated 12/19/22 @ 16:20 by [...] % (Auto) 69.7, Lymph % (Auto) 21.0, Vance % (Auto) 6.9, Eos % (Auto) 1.0, [...] Margaret Morse MD at 15:29 EDT , Assessment & Plan Assessment/Plan (1) Incarcerated [...] observation status. Charges/Coding Visit Charges Inpatient E&M: 14976 Init Hosp L2 12/19/22 1729 <Electronically signed by Jerardo Millan MD> Cosigner Signature (if applicable): CC: Dr. Jerardo Millan MD; OR Hospital~ Signed [facility] Work Phone: [phone] 580-918608-28-2023 Discharge summary Author Asad Mcdonough [facility] December 19, 2022 5:15pm Note Date/Time December 19, 2022 2: 18pm [facility] Medical Records Department [address] [place] [address] Emergency Department Summary 12/19/22 MR#: [id number] Acct: [id number] Name: TRE QUIÑONES Rep #:[id number] : 1955 67 From: Asad Mcdonough MD [place] [place] Location: [facility] AC-TB A-3 HPI HPI - GI History of [...] like this. Has been seen at the OR and considered for elective repair, he states they were putting it off until he could lose weight and become a better surgical candidate. [facility] Medical History (Updated 12/19/22 @ 16:20 by [...] % (Auto) 69.7 Lymph % (Auto) 21.0 Vance % (Auto) 6.9 Eos % (Auto) 1.0 [...] 15:29 EDT Reading Location ID and State: [facility] / [place] Tel , Service support , Management Discussion w/another healthcare provider: Hospitalist and General Office Dispatcher (Sander Millan) Discharge Plan Dx/Rx/DC Orders Clinical Impression: Incarcerated umbilical hernia Disposition Disposition: Acute Care Hospital [facility] What to do if you have Problems For any increased pain, shortness of breath, bleeding, nausea or vomiting, chestpain, or any unexpected problems, contact your Primary Care Provider. Call [facility] ([phone]) or report to the closest Emergency Room. Call 911 if necessary. 12/19/22 1651 <Electronically signed by Asad Mcdonough MD> Cosigner Signature (if applicable): CC: [facility] ~ Signed ADDENDUM by Dr. Asad Mcdonough MD on 12/19/22 at 1715 Patient is going to laparoscopy tonight. Preop EKG was obtained, it shows AV sequential pacing and capture without acute injury pattern, and 1 view chest x- ray on my interpretation shows mild cardiomegaly but no other acute abnormalities. 08/28/23 1715<Electronically signed by Asad Mcdonough MD> Cosigner Signature (if applicable): cc: [facility] Hospital ~* Signed [facility] Work Phone: Discharge summary Author Juana Rodriguez [facility] Note Date/Time January 26, 2025 11 :52am [facility] Medical Records Department [address] [place] [address] Instructions for Home/Discharge Instructions 01/26/25 1151 MR#: [id number] Acct: [id number] Name: TRE QUIÑONES Rep #:[id number] : 1955 69 From: Juana Rodriguez MD PCP: [place] Hospital Status:ADM IN Discharge Instructions DC O2, CPAP, BIPAP needs Home O2 Discharge instructions: No Dressing / Incision Discharge Activity: - (Increase activity as tolerated) Follow Up Care Test Results: Test results from this visit will be discussed in further detail at your follow- up appointment, if applicable. Discharge Plan Admission Admit Date/Time: 01/25/25 13:23 Primary Reason for Your Visit: Shortness of breath Attending Provider: Juana Rodriguez Primary Care Provider: [facility],[place] Instructions Patient Instructions: Asthma Additional Instructions / Restrictions: DISCHARGE INSTRUCTIONS PLEASE READ *Please take this with you to your next doctors appointment* - Please continue to use your breathing treatments at home and follow-up closelywith the OR -You will be discharged on a prednisone taper: -60 mg daily x3 days -50mg daily x3 days -40mg daily x3 days -30mg daily x3 days -20mg daily x3 days -10mg daily x3 days -Please call your primary care provider's office upon discharge to schedule a hospital follow up within 1 week. -For any concerning signs or symptoms please call 911 or proceed to the nearest emergency department Discharge Orders/Prescriptions Prescriptions: New prednisone 20 mg Tablet See Taper PO BREAKFAST Qty: 32 0RF Taper: Prednisone Taper 60 mg WITH BREAKFAST for 3 Days and 0 Hour 50 mg WITH BREAKFAST for 3 Days and 0 Hour 40 mg WITH BREAKFAST for 3 Days and 0 Hour 30 mg WITH BREAKFAST for 3 Days and 0 Hour 20 mg WITH BREAKFAST for 3 Days and 0 Hour 10 mg WITH BREAKFAST for 3 Days and 0 Hour Continued lisinopril 20 mg tablet 20 mg PO DAILY cholecalciferol (vitamin D3) 50 mcg (2,000 unit) capsule 50 mcg PO DAILY empagliflozin 25 mg tablet 12.5 mg PO QAM diclofenac sodium [Voltaren Arthritis Pain] 1 % gel 2 g topical ONCE PRN (Reason: Arthritis Pain) Rx Instructions: apply to bilateral shoulders potassium gluconate 595 mg (99 mg) tablet 595 mg PO QDAY metoprolol succinate 50 mg tablet extended release 24 hr 50 mg PO QDAY Qty: 90 3RF albuterol sulfate 1 INHALER inhaler 2 puff INHALATION Q6H PRN PRN (Reason: Wheezing/SOB) Patient Comments: Wheezing/SOB tadalafil 5 mg tablet 5 mg PO DAILY Patient Comments: Take 1 tablet by mouth every morning. rivaroxaban 20 mg tablet 20 mg PO QDAY Rx Instructions: administer with evening meal pregabalin [Lyrica] 75 mg capsule 75 mg PO BID Combivent Respimat 20-100 mcg/actuation mist 1 puff inhalation Q6H eplerenone [Inspra] 25 mg tablet 12.5 mg PO DAILY Qty: 30 1RF furosemide 20 mg tablet 20 mg PO QAM Referrals / Follow Up: Hospital,OR [Primary Care Provider, None] - Within 1 Week Disposition Disposition (needs filled in before D/C Order can be placed): Home, Self Care 01/26/25 1152<Electronically signed by Juana Rodriguez MD>Juana Rodriguez MD CC: [place] Hospital ~ Signed [facility] Work Phone: Discharge summary Author Juana Rodriguez [facility] Note Date/Time January 26, 2025 12 :30pm [facility] Medical Records Department [address] [place] [address] Discharge Summary 01/26/25 1152 MR#: [id number] Acct: [id number] Name: TRE QUIÑONES Rep #:[id number] : 1955 69 From: Juana Rodriguez MD PCP: [facility] Status:DIS IN Location: [facility] [id number] Providers Date of Admission: 01/25/25 Date of Discharge: 01/26/25 Primary Care Physician: [facility] Reason For Visit: RESPIRATORY DISTRESS SECONDARY TO ASTHMA EXACERBAT Diagnosis Discharge Diagnosis (1) Asthma exacerbation: Status: Acute Code(s): J45.901 - Unspecified asthma with (acute) exacerbation Plan #Acute exacerbation of asthma # Elevated troponin, no ACS # History of mitral and tricuspid valve replacements/permanent pacemaker #Paroxysmal Atrial Fibrillation #JOSÉ MIGUEL Medications at Discharge Home Medications albuterol sulfate 90 mcg/actuation aerosol inhaler 2 puff inhalation Q6H PRN PRNWheezing/SOB 07/21/17 lisinopril 20 mg tablet 20 mg PO DAILY 05/23/18 tadalafil 5 mg tablet 5 mg PO DAILY 12/19/22 cholecalciferol (vitamin D3) 50 mcg (2,000 unit) capsule 50 mcg PO DAILY 10/27/23 eplerenone 25 mg tablet (Inspra) 12.5 mg (1/2 x 25 mg) PO DAILY #30 tabs 11/13/23 diclofenac sodium 1 % topical gel (Voltaren Arthritis Pain) 2 g topical ONCE PRNArthritis Pain 02/14/24 empagliflozin 25 mg tablet 12.5 mg PO QAM 02/14/24 potassium gluconate 595 mg (99 mg) tablet 595 mg PO QDAY 02/19/24 metoprolol succinate 50 mg tablet,extended release 24 hr 50 mg PO QDAY #90 tabs 03/13/24 rivaroxaban 20 mg tablet 20 mg PO QDAY 09/18/24 furosemide 20 mg tablet 20 mg PO QAM 01/13/25 ipratropium 20 mcg-albuterol 100 mcg/actuation mist for inhalation (Combivent Respimat) 1 puff inhalation Q6H 01/25/25 pregabalin 75 mg capsule (Lyrica) 75 mg PO BID 01/25/25 prednisone 20 mg tablet See Taper PO BREAKFAST #32 tabs 01/26/25 Hospital Course Summary of Care Provided Minutes Spent on Discharge: 23 Hospital Course: Per HPI: TRE QUIÑONES, is a 69-year-old male with a history of asthma, A-fib on Xarelto, pacemaker placement, mitral and tricuspid valve replacement, Maze procedure, hypertension, JOSÉ MIGUEL who presented to [facility] ED 01/25/25 for several days of increased shortness of breath and nonproductive cough. Denies any leg swelling and is afebrile. No chest pain. In the ED temp97.8, heart rate 59, blood pressure 155/69, respiratory rate initially 30 with pulse ox 96% on room air but decreased to 18, CBC with white count 6.5 and hemoglobin 13.1, BMP only notable for glucose of 101. Chest x-ray with cardiomegaly and mild vascular congestion, proBNP of 420, troponin of 52. Patient given steroids and nebs, he was also given a dose of Lasix, hospitalist contacted for admission due to his shortness of breath and respiratory distress. Patient evaluated at bedside. Symptoms have been present over the past 2 to 3 days and presented somewhat suddenly with wheezing and increased shortness of breath, has had a nonproductive cough since last night. No chest pain or fevers, no bowel or bladder changes. Little bit of nasal congestion now that nasal cannula is in place but no sore throat. also has a slight cough but no shortness of breath. He does feel little bit better after breathing treatments and steroids but still diffusely wheezing with shortness of breath. Patient denies any lower extremity swelling. INTERVAL HISTORY: Patient improved faster than anticipated and had significant improvement in work of breathing and shortness of breath this a.m. Still has some wheezing but significantly improved patient has been able to be up and ambulating in the room without respiratory distress, patient and comfortable with discharge home with [facility]. No chest pain or increase in leg swelling on day of discharge and no other new acute complaints. Physical Exam Narrative General: Alert, oriented, no apparent distress HEENT: Atraumatic, normocephalic Eyes: Anicteric, normal conjunctiva, extraocular movements grossly intact Neck: Supple Respiratory: Some expiratory wheezes in lower lobes significantly improved, not tachypneic, no increased work of breathing Cardiovascular: Regular rate GI: Soft, nontender, nondistended Extremities: No significant pitting Musculoskeletal: Moving all extremities Neuro: No overt focal neurological deficits Skin: No rashes appreciated Psych: Cooperative Weight / BMI Weight Weight: 143.1 kg Body Mass Index (BMI) 42.7 ABG / Lab / Microbiology Data 01/26/25 07:16 01/26/25 07:16 Laboratory: Laboratory Results - last 24 hr 01/25/25 13:10: Troponin T Hi Sens 2 Hr 50 H 01/25/25 15:14: Troponin T Hi Sens 4Hr 42 H 01/26/25 07:16: WBC 9.5, RBC 4.95, Hgb 13.9, Hct 41.7, MCV 84.2, MCH 28.1, MCHC 33.3, RDW Std Deviation 43.8, RDW Coeff of Mar 14.4, Plt Count 232, MPV 10.4, Immature Gran % (Auto) 0.400, Neut % (Auto) 83.8 H, Lymph % (Auto) 12.4 L, Vance % (Auto) 3.3, Eos % (Auto) 0.0, Baso % (Auto) 0.1, Absolute Neuts (auto) 8.0 H, Absolute Lymphs (auto) 1.18, Nucleated RBC % 0, Sodium 142, Potassium 4.8, Chloride 105, Carbon Dioxide 23.1, Anion Gap 13, BUN 27 H, Creatinine 0.96, Estim Creat Clear Calc 109.63, Est GFR (MDRD) Non-Af 86, BUN/Creatinine Ratio 28.5 H, Glucose 135 H, Calcium 9.7 Microbiology: Microbiology 01/25/25 16:49 Mucosa - Nasopharyngeal Respiratory Panel (PCR) - Final 01/25/25 11:20 Mucosa - Nose SARS-CoV-2, Influenza & RSV (PCR) - Final D/C Instructions DC O2, CPAP, BIPAP Needs Home O2 Discharge instructions: No Meaningful Use Info Meaningful Use Meaningful Use Diagnoses (Choose all that apply): None applicable Discharge Plan Admission Admit Date/Time: 01/25/25 13:23 Primary Reason for Your Visit: Shortness of breath Attending Provider: Juana Rodriguez Primary Care Provider: [facility],[place] Instructions Patient Instructions: Asthma Additional Instructions / Restrictions: DISCHARGE INSTRUCTIONS PLEASE READ *Please take this with you to your next doctors appointment* - Please continue to use your breathing treatments at home and follow-up closelywith the OR -You will be discharged on a prednisone taper: -60 mg daily x3 days -50mg daily x3 days -40mg daily x3 days -30mg daily x3 days -20mg daily x3 days -10mg daily x3 days -Please call your primary care provider's office upon discharge to schedule a hospital follow up within 1 week. -For any concerning signs or symptoms please call 911 or proceed to the nearest emergency department Discharge Orders/Prescriptions Prescriptions: New prednisone 20 mg Tablet See Taper PO BREAKFAST Qty: 32 0RF Taper: Prednisone Taper 60 mg WITH BREAKFAST for 3 Days and 0 Hour 50 mg WITH BREAKFAST for 3 Days and 0 Hour 40 mg WITH BREAKFAST for 3 Days and 0 Hour 30 mg WITH BREAKFAST for 3 Days and 0 Hour 20 mg WITH BREAKFAST for 3 Days and 0 Hour 10 mg WITH BREAKFAST for 3 Days and 0 Hour Continued lisinopril 20 mg tablet 20 mg PO DAILY cholecalciferol (vitamin D3) 50 mcg (2,000 unit) capsule 50 mcg PO DAILY empagliflozin 25 mg tablet 12.5 mg PO QAM diclofenac sodium [Voltaren Arthritis Pain] 1 % gel 2 g topical ONCE PRN (Reason: Arthritis Pain) Rx Instructions: apply to bilateral shoulders potassium gluconate 595 mg (99 mg) tablet 595 mg PO QDAY metoprolol succinate 50 mg tablet extended release 24 hr 50 mg PO QDAY Qty: 90 3RF albuterol sulfate 1 INHALER inhaler 2 puff INHALATION Q6H PRN PRN (Reason: Wheezing/SOB) Patient Comments: Wheezing/SOB tadalafil 5 mg tablet 5 mg PO DAILY Patient Comments: Take 1 tablet by mouth every morning. rivaroxaban 20 mg tablet 20 mg PO QDAY Rx Instructions: administer with evening meal pregabalin [Lyrica] 75 mg capsule 75 mg PO BID Combivent Respimat 20-100 mcg/actuation mist 1 puff inhalation Q6H eplerenone [Inspra] 25 mg tablet 12.5 mg PO DAILY Qty: 30 1RF furosemide 20 mg tablet 20 mg PO QAM Referrals / Follow Up: Hospital,OR [Primary Care Provider, None] - Within 1 Week Disposition Disposition (needs filled in before D/C Order can be placed): Home, Self Care Charges/Coding Visit Charges Inpatient E&M: 84271 Disch Hosp 01/26/25 1342 <Electronically signed by Juana Rodriguez MD> Cosigner Signature (if applicable): CC: Dr. Omer Wray MD; Dr. Juana Rodriguez MD; OR Hospital~ Signed [facility] Work Phone: Evaluation note* Diagnosis Onset Date Resolution Status Incarcerated umbilical hernia acute [facility] Work Phone: Evaluation note* Diagnosis Onset Date Resolution Status Incarcerated umbilical hernia resolved Status post umbilical hernia repair, follow-up exam acute Status post umbilical hernia repair, follow-up exam acute Status post umbilical hernia repair, follow-up exam acute [facility] Work Phone: Evaluation note* Diagnosis 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 Unspecified disorders of arteries and arterioles Pre-operative cardiovascular examination Atrial fibrillation, unspecified type (HCC) Mitral valve disorder Mitral valve disorders Disorder of artery or arteriole (HCC) Unspecified disorders of arteries and arterioles Pre-operative cardiovascular examination Atrial fibrillation, unspecified type (HCC) Mitral valve disorder Mitral valve disorders documented in this encounter [facility] note* Diagnosis Pre-operative cardiovascular examination- Primary Disorder of artery or arteriole (HCC) Unspecified disorders of arteries and arterioles Atrial fibrillation, unspecified type (HCC) Mitral valve disorder Mitral valve disorders Disorder of artery or arteriole (HCC) Unspecified disorders of arteries and arterioles Pre-operative cardiovascular examination Atrial fibrillation, unspecified type (HCC) Mitral valve disorder Mitral valve disorders documented in this encounter [facility] note* Diagnosis Pre-operative cardiovascular examination- Primary Disorder of artery or arteriole (HCC) Unspecified disorders of arteries and arterioles Atrial fibrillation, unspecified type (HCC) Mitral valve disorder Mitral valve disorders Disorder of artery or arteriole (HCC) Unspecified disorders of arteries and arterioles Pre-operative cardiovascular examination Atrial fibrillation, unspecified type (HCC) Mitral valve disorder Mitral valve disorders documented in this encounter [facility] note* Diagnosis Pre-op exam- Primary Preoperative examination, [...] Mitral valve disorders documented in this encounter [facility] note* Diagnosis Disorder of artery or arteriole (HCC) Unspecified disorders of arteries and arterioles Pre-operative cardiovascular examination Atrial fibrillation, unspecified type (HCC) Mitral valve disorder Mitral valve disorders Disorder of artery or arteriole (HCC) Unspecified disorders of arteries and arterioles Pre-operative cardiovascular examination Atrial fibrillation, unspecified type (HCC) Mitral valve disorder Mitral valve disorders documented [facility] encounter [facility]* Diagnosis Pacemaker reprogramming/check Fitting and adjustment of cardiac pacemaker Disorder of artery or arteriole (HCC) Unspecified disorders of arteries and arterioles Pre-operative cardiovascular examination Atrial fibrillation, unspecified type (HCC) Mitral valve disorder Mitral valve disorders documented [facility]* Diagnosis Disorder of artery or arteriole (HCC) Unspecified disorders of arteries and arterioles Pre-operative cardiovascular examination Atrial fibrillation, unspecified type (HCC) Mitral valve disorder Mitral valve disorders Disorder of artery or arteriole (HCC) Unspecified disorders of arteries and arterioles Pre-operative cardiovascular examination Atrial fibrillation, unspecified type (HCC) Mitral valve disorder Mitral valve disorders documented in this encounter [facility] note* Diagnosis Encounter for preoperative anesthesiology assessment for cardiac surgery- Primary Disorder of artery or arteriole (HCC) Unspecified disorders of arteries and arterioles Pre-operative cardiovascular examination Atrial fibrillation, unspecified type (HCC) Mitral valve disorder Mitral valve disorders documented in this encounter [facility] note* Diagnosis Mitral valve insufficiency, unspecified etiology- Primary Disorder of artery or arteriole (HCC) Unspecified disorders of arteries and arterioles Pre-operative cardiovascular examination Atrial fibrillation, unspecified type (HCC) Mitral valve disorder Mitral valve disorders documented in this encounter [facility] note* Diagnosis Disorder of artery or arteriole (HCC) Unspecified disorders of arteries and arterioles Pre-operative cardiovascular examination Atrial fibrillation, unspecified type (HCC) Mitral valve disorder Mitral valve disorders Disorder of artery or arteriole (HCC) Unspecified disorders of arteries and arterioles Pre-operative cardiovascular examination Atrial fibrillation, unspecified type (HCC) Mitral valve disorder Mitral valve disorders documented [facility] this encounter [facility]* Diagnosis S/P MVR (mitral valve repair)- Primary Other postprocedural status S/P TVR (tricuspid valve repair) Other postprocedural status S/P Maze operation for atrial fibrillation Other postprocedural status Cardiac pacemaker in situ documented [facility] this encounter [facility]* Diagnosis Surgery follow-up Follow-up examination, following unspecified surgery documented in this encounter [facility] note* Diagnosis Dyspnea, unspecified type documented in this encounter [facility] Work Phone: Evaluation note* Diagnosis Dyspnea, unspecified type- Primary Dyspnea, unspecified type documented in this encounter [facility] Work Phone: Evaluation note* Diagnosis Onset Date [...] valve repair chronic September 18, 2024 11:24am [facility] Work Phone: Evaluation note* Diagnosis Erectile dysfunction, unspecified erectile dysfunction type- [facility] Diagnosis Erectile dysfunction, unspecified erectile dysfunction type- Primary documented in this encounter [facility] Discharge instructionsAdditional Instructions DISCHARGE INSTRUCTIONS PLEASE READ *Please take this with you to your next doctors appointment* - Please continue to use your breathing treatments at home and [facility] -You will be discharged on a prednisone taper: -60 mg daily x3 days -50mg daily x3 days -40mg daily x3 days -30mg daily x3 days -20mg daily x3 days -10mg daily x3 days -Please call your primary care provider's office upon discharge to schedule a hospital follow up within 1 week. -For any concerning signs or symptoms please call 911 or proceed to the nearest emergency department Date of Discharge: 01/26/25[facility] Work Phone: Reason for referral (narrative)* Outpatient Procedure (Routine) - New Request Specialty Diagnoses / Procedures Referred By Dwayne t Referred To Contact [facility] Diagnoses Disorder of artery or arteriole (HCC) Pre-operative cardiovascular examination Atrial fibrillation, unspecified type (HCC) Mitral valve disorder Procedures LUNG DIFFUSION CAPACITY (DLCO) DIFFUSING CAPACITY Phillip Diamond MD [address] [place] [address] [facility] [address] [place] [address] Referral ID Status Reason Start Date Expiration Date Visits Requested Visits Authorized [id number] New Request Auto-Generat ed Referral 12/08/2023 01/06/2025 1 1 * Outpatient Procedure (Routine) - New Request Specialty Diagnoses / Procedures Referred By Contac t Referred To Contact [facility] Diagnoses Disorder of artery or arteriole (HCC) Pre-operative cardiovascular examination Atrial fibrillation, unspecified type (HCC) Mitral valve disorder Procedures SPIROMETRY BASELINE ONLY SPMTRY W/VC EXPIRATORY ABELARDO W/WO MXML VOL VNTJ Phillip Diamond MD [address] [place] [address] [facility] [address] [place] [address] Referral ID Status Reason Start Date Expiration Date Visits Requested Visits Authorized [id number] New Request Auto-Generat ed Referral 12/08/2023 01/06/2025 [...] MTRL W/WO CNTRST IMGES Phillip Diamond MD [address] [place] [address] [facility] [place] [address] Referral ID Status Reason Start Date Expiration Date Visits Requested Visits Authorized [id number] New Request Auto-Generat ed Referral 12/08/2023 01/06/2025 1 1 * Outpatient Procedure (Routine) - New Request Specialty Diagnoses / Procedures Referred By Contac t Referred To [facility] Diagnoses Disorder of artery or arteriole (HCC) Pre-operative cardiovascular examination Atrial fibrillation, unspecified type (HCC) Mitral valve disorder Procedures ECHO ECHO TTHRC R-T 2D W/WOM-MODE COMPL SPEC&COLR D Phillip Diamond MD [address] [place] [address] [facility] [address] [address] [address] Referral ID Status Reason Start Date Expiration Date Visits Requested Visits Authorized [id number] New Request Auto-Generat ed Referral 12/08/2023 12/07/2024 1 1 * Outpatient Procedure (Routine) - New Request Specialty Diagnoses / Procedures Referred By Dwayne t Referred To Contact [facility] Diagnoses Disorder of artery or arteriole (HCC) Pre-operative cardiovascular examination Atrial fibrillation, unspecified type (HCC) Mitral valve disorder Procedures ECG COMPLETE ECG ROUTINE ECG W/LEAST 12 LDS W/I&R Phillip Diamond MD [address] [place] [address] [place] [address] Referral ID Status Reason Start Date Expiration Date Visits Requested Visits Authorized [id number] New Request Auto-Generat ed Referral 12/08/2023 12/07/2024 1 1 * Consult, Test, Treat (Routine) - Authorized Specialty Diagnoses / Procedures Referred By Dwayne rush Referred To Contact Cardiac Surg Diagnoses Disorder of artery or arteriole (HCC) Pre-operative cardiovascular examination Atrial fibrillation, unspecified type (HCC) Mitral valve disorder Procedures CARDIOTHORACIC PREOP EVALUATION OFFICE/OUTPATIENT [facility] 60 MINUTES Phillip Diamond MD [address] [place] [address] Referral ID Status Reason Start Date Expiration Date Visits Requested Visits Authorized [id number] Authorized PCP Requested Referral 12/08/2023 12/07/2024 1 1 * Consult, Test, Treat (Routine) - Authorized Specialty Diagnoses / Procedures Referred By Dwayne rush Referred To Contact Cardiology Diagnoses Disorder of artery or arteriole (HCC) Pre-operative cardiovascular examination Atrial fibrillation, unspecified type (HCC) Mitral valve disorder Procedures CONSULT TO CARDIOLOGY OFFICE/OUTPATIENT NEW HIGH MDM 60 MINUTES Phillip Diaomnd MD [address] [place] [id number] Referral ID Status Reason Start Date Expiration Date Visits Requested Visits Authorized [id number] Authorized PCP Requested Referral 12/08/2023 12/07/2024 1 1 [facility] for referral (narrative)* Outpatient Procedure (Routine) - Denied Specialty Diagnoses / Procedures Referred By Contac t Referred To Contact [facility] Diagnoses Pacemaker reprogramming/check Procedures CARDIAC [place] [address] [facility] [place] [address] Referral ID Status Reason Start Date Expiration Date V isits Requested Visits Authorized [id number] Denied Auto-Generat ed Referral Patient Cleared - Admin/Chairm an/Director advise to proceed or did not respond 12/12/2023 12/11/2024 1 0 * Outpatient Procedure (Routine) - Denied Specialty Diagnoses / Procedures Referred By Contac t Referred To Contact [facility] Diagnoses Pacemaker reprogramming/check Procedures CARDIAC IMPLANTABLE DEVICE CHECK [address] [place] [address] Referral ID Status Reason Start Date Expiration Date V isits Requested Visits Authorized [id number] Denied Auto-Generat ed Referral Patient Cleared - Admin/Chairm an/Director advise to proceed or did not respond 12/12/2023 12/11/2024 1 0 [facility] for referral (narrative)No reason for referral [facility] Work Phone: Reason for visit Narrative* Outpatient Procedure (Routine) - Denied Specialty Diagnoses / Procedures Referred By Contac t Referred To Contact [facility] Diagnoses Pacemaker reprogramming/check Procedures CARDIAC IM[place] [address] Heart [facility] [address] [address] Referral ID Status Reason Start Date Expiration Date V isits Requested Visits Authorized [id number] Denied Auto-Generat ed Referral Patient Cleared - Admin/Chairm an/Director advise to proceed or did not respond 12/12/2023 12/11/2024 1 0 [facility] Summary Purpose Family History Relationship Condition Age at Onset Recorded Date/T peg Not Specified Cerebrovascular accident (CVA) Unknown mother Diabetes mellitus Unknown Hypertension Unknown father Malignant neoplasm Unknown Family Member Condition Father Cancer Father Mother Diabetes - insulin d ependent Mother Advance Directives Advance Directive Response Recorded Date/ Time Name of Medical Power of Airbrush Artist Photography December 19, 2022 8:59pm Advance Directives Yes May 12:21pm Living Will Yes December 19 8:59pm Power of Airbrush Artist Photography Yes December 19 8:59pm Advance Directive Response Recorded Date/ Time Name of Medical Power of Airbrush Artist Photography December 19, 2022 7:59pm Name of Medical Power of Airbrush Artist Photography March 20, 2023 8:58am Advance Directives Yes May 11:21am Living Will Yes March 20 8:58am Power of Airbrush Artist Photography Yes March 20, 2023 8:58am Documents on File Type Date 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 Advance Directive(s) 01/23/2024 5:09 AM Date Activated Date Inactivated Comments 01/24/2024 1:30 PM Question Answer Comments Full Code Order Discussed With: Discussion Not M edically Appropriate Date Activated Date Inactivated Comments 01/24/2024 1:30 PM 01/29/2024 9:18 PM Documents on File Type Date 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 Yes August 13, 2024 11:47am Advance Directives Yes February 11:19am Advance Directive Response Recorded Date/ Time Advance Directives Yes February 11:19am Advance Directive Response Recorded Date/ Time Living Will Yes November 21, 2023 7:13am Do you have a Healthcare Power of Airbrush Artist Photography? Yes November 21, 2023 7:13am Advance Directives Yes February 11:19am Advance Directive Response Recorded Date/ Time Living Will Yes November 21, 2023 7:13am Do you have a Healthcare Pow er of Airbrush Artist Photography? Yes November 21, 2023 7:13am Advance Directives on File Yes Octob er 2024 9:26am Living Will Yes January 27 9:26am Do you have a Healthcare Pow er of Airbrush Artist Photography? Yes January 27, 2025 9:26am Name of Medical Power of Airbrush Artist Photography Beckyamari Pinedoon- January 27, 2025 9:26am Advance Directives Yes January 27, 2025 9:26am Do you have a Healthcare Pow er of Airbrush Artist Photography? Yes January 25, 2025 4:39pm Name of Medical Power of Airbrush Artist Photography Becky Quiñones January 25, 2025 4:39pm Advance Directive Response Recorded Date/ Time Living Will Yes November 21, 2023 6:13am Do you have a Healthcare Pow er of Airbrush Artist Photography? Yes November 21, 2023 6:13am Advance Directives on File Yes Octob er 2024 8:26am Living Will Yes January 27 8:26am Do you have a Healthcare Pow er of Airbrush Artist Photography? Yes January 27, 2025 8:26am Name of Medical Power of Airbrush Artist Photography Becky Pinedoon- January 27, 2025 8:26am Advance Directives Yes January 27, 2025 8:26am Do you have a Healthcare Pow er of Airbrush Artist Photography? 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 [...] Pacer Check Remote January 18, 2025 3:11am Chief Complaint Admit Date SOB, ENSURE VALVE IS STABLE October 24 8:52am Pacer Check Remote December 19, 2024 3: 10am PPM GENERATOR CHANGE (JHR 2P) January 13, 2025 1:12pm 1 Y FU (PPM F/U LEANN 1:30) December 1:18pm Pacer Check Remote January 14, 2025 9:00am Pacer Check Remote January 18, 2025 3:11am RESPIRATORY DISTRESS SECONDARY TO ASTHMA EXACERBAT January 25, 2025 1:23pm RESPIRATORY DISTRESS SECONDARY TO ASTHMA EXACERBAT January 26, 2025 11:52am Normal battery depletion January 27 9:09am Reason for Visit Admit Date shelter current use of anticoagulant S eptember 2024 [...] January 13, 2025 1:18pm Essential (primary) hypertension [facility] er 2024 1:18pm Presence of permanent cardiac pacemaker January 13, 2025 1:18pm S/P tricuspid valve repair December 1:18pm Asthma exacerbation January 25, 2025 1: 23pm Chronic anticoagulation January 25 1:23pm Chief Complaint Admit Date Pacer Check Remote December 19, 2024 3: 10am PPM GENERATOR CHANGE (JHR 2P) January 13, 2025 1:12pm 1 Y FU (PPM F/U LEANN 1:30) December 1:18pm Pacer Check Remote January 14, 2025 9:00am Pacer Check Remote January 18, 2025 3:11am RESPIRATORY DISTRESS SECONDARY TO ASTHMA EXACERBAT January 25, 2025 1:23pm RESPIRATORY DISTRESS SECONDARY TO ASTHMA EXACERBAT January 26, 2025 11:52am Normal battery depletion January 27 9:09am Pacer Check Remote 2025 6 :35pm Pacer Check Remote February 11, 2025 9 :00am 1 wk s/p gen change wound check February 11, 2025 9:38am 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 Visit 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 [...] January 13, 2025 1:18pm Essential (primary) hypertension [facility] 2024 1:18pm Presence of permanent cardiac pacemaker January 13, 2025 1:18pm S/P tricuspid valve repair December 1:18pm Asthma exacerbation January 25, 2025 1: 23pm Chronic anticoagulation January 25 1:23pm Cardiac arrest with successful resuscita tion February 11, 2025 9:38am Pacemaker February 11, 2025 9 :38am Presence of left atrial appendage closur e device February 11, 2025 9:38am S/P Maze operation for atrial fibrillati on February 11, 2025 9:38am S/P mitral valve repair February 11 9:38am S/P tricuspid valve repair February 11, 2025 9:38am Reason for Referral Specialty Diagnoses / Procedures Referred By Contac t Referred To Contact [facility] Procedures CARDIOVASCULAR MEDICINE OP FOLLOW UP APPT ORDER Moiz Koenig MD [address] [place] [address] [facility] [place] [address] Referral ID Status Reason Start Date Expiration Date Visits Requested Visits Authorized [id number] Ref Not Required PCP Requested Referral 01/19/2024 01/18/2025 1 1 Specialty Diagnoses / Procedures Referred By Contac t Referred To Contact CT IMAGING Diagnoses Disorder of artery or arteriole (HCC) Pre-operative cardiovascular examination Atrial fibrillation, unspecified type (HCC) Mitral valve disorder Procedures CTA CHEST/ABD/PEL (GATED) W IVCON CT ANGIOGRAPHY CHEST W/CONTRAST/NONCONTRAST CT ANGIO ABD&PLVIS CNTRST MTRL W/WO CNTRST Phillip Rayo MD [facility] [place] [address] Ct Imaging [place] [address] Referral ID Status Reason Start Date Expiration Date V isits Requested Visits Authorized [id number] Closed Auto-Generate d Referral 12/08/2023 01/06/2025 1 1 Specialty Diagnoses / Procedures Referred By Contac t Referred To Contact Radiology Diagnoses Dyspnea, unspecified type Procedures XR CHEST PA+LAT 2 VIEWS Chelsie Nieves, [employer]W FEEDER [address] [place] [address] [facility] DIAGNOSTIC RADIOLOGY [address] [place] [address] [place] [address] Referral ID Status Reason Start Date Expiration Date Visits Re quested Visits Authorized [id number] Closed 07/10/2023 07/09/2024 1 1 Additional Source Comments (unrecognized sect ion and content) No Status Records FoundNo Status Records FoundNo Status Records FoundNo Status Records FoundNo Status Records FoundNo Status Records FoundNo Status Records FoundNo Status Records Found INFORMATION SOURCE (unrecogn ized section and content) DATE CREATED AUTHOR 10/18/2017 [facility] DATE CREATED AUTHOR AUTHOR'S ORGANIZ ATION 03/11/2021 [facility] DATE CREATED AUTHOR AUTHOR'S ORGANIZ ATION 05/23/2021 [facility] DATE CREATED AUTHOR AUTHOR'S ORGANIZ ATION 07/13/2023 [facility] DATE CREATED AUTHOR AUTHOR'S ORGANIZ ATION 11/05/2024 [facility] DATE CREATED AUTHOR AUTHOR'S ORGANIZ ATION 12/17/2024 [facility] DATE CREATED AUTHOR AUTHOR'S ORGANIZ ATION 01/29/2025 [facility] DATE CREATED AUTHOR AUTHOR'S ORGANIZ ATION 02/14/2025 [facility] Care Teams (unrecognized sec tion and content) Team Status: Active Member Role/Relationship Status Dates [facility] Primary care physician Active Team Status: Inactive Member Role/Relationship Status Dates Dr. Omer Wray MD Attending physician Active Start: December 19, 2024 End: December 19, 2024 Dr. Omer Wray MD Referring Provider Active S tart: December 19, 2024 End: December 19, 2024 Team Status: Inactive Member Role/Relationship Status Dates Dr. Omer Wray MD Attending physician Active Start: January 13, 2025 End: January 13, 2025 Dr. Omer Wray MD Referring Provider Active S tart: January 13, 2025 End: January 13, 2025 Team Status: Inactive Member Role/Relationship Status Dates [facility] Primary care physician Active Start : January 13, 2025 End: January 13, 2025 [facility] Referring Provider Active Start: Se ptember 2024 End: January 13, 2025 Evelyn Deleon SAP PPM CONSULTANT, SAP PPM CONSULTANT-C Attending physician Active Start: January 13, 2025 End: January 13, 2025 Team Status: Inactive Member Role/Relationship Status Dates Dr. Omer Wray MD Attending physician Active Start: January 14, 2025 End: January 14, 2025 Dr. Omer Wray MD Referring Provider Active S tart: January 14, 2025 End: January 14, 2025 Team Status: Inactive Member Role/Relationship Status Dates Dr. Omer Wray MD Attending physician Active Start: January 18, 2025 End: January 18, 2025 Dr. Omer Wray MD Referring Provider Active S tart: January 18, 2025 End: January 18, 2025 Team Status: Inactive Member Role/Relationship Status Dates [facility] Primary care physician Active Start : January 25, 2025 End: January 26, 2025 Dr. Raymond Madrid MD Emergency Department Physician Ac tive Start: January 25, 2025 End: January 26, 2025 Dr. Juana Rodriguez MD Admitting physician Active Start: January 25, 2025 End: January 26, 2025 Dr. Juana Rodriguez MD Attending physician Active Start: January 25, 2025 End: January 26, 2025 Team Status: Active Member Role/Relationship Status Dates [facility] Primary care physician Active Start : January 26, 2025 Dr. Raymond Madrid MD Emergency Department Physician Ac tive Start: January 26, 2025 Dr. Juana Rodriguez MD Admitting physician Active Start: January 26, 2025 Dr. Juana Rodriguez MD Attending physician Active Start: January 26, 2025 Dr. Juana Rodriguez MD Nurse Practitioner Active Start: January 26, 2025 Team Status: Inactive Member Role/Relationship Status Dates [facility] Primary care physician Active Start : January 27, 2025 End: January 27, 2025 Dr. Omer Wray MD Attending physician Active Start: January 27, 2025 End: January 27, 2025 Dr. Omer Wray MD Referring Provider Active S tart: January 27, 2025 End: January 27, 2025 Team Status: Inactive Member Role/Relationship Status Dates [facility] Primary care physician Active Start : 2025 End: 2025 Dr. Omer Wray MD Attending physician Active Start: 2025 End: 2025 Team Status: Inactive Member Role/Relationship Status Dates [facility] Primary care physician Active Start : February 11, 2025 End: February 11, 2025 Dr. Omer Wray MD Attending physician Active Start: February 11, 2025 End: February 11, 2025 Team Status: Inactive Member Role/Relationship Status Dates [facility] Primary care physician Active Start : February 11, 2025 End: February 11, 2025 [facility] Referring Provider Active Start: James ontiveros 2024 End: February 11, 2025 Jolene Larkin Attending physician Active Start: February 11, 2025 End: February 11, 2025 Team Status: Active Member Role Status Dates Dr. Evelyn Kruse MD Family Provider Active [facility] Primary Care Provider Active Team Status: Active Member Role Status Dates Dr. Asad Mcdonough MD Emergency Provider Active [facility] Primary Care Provider Active Dr. Jerardo Millan MD Attending Provider, Other Provi shavonne Active Team Status: Active Member Role Status Dates Dr. Asad Mcdonough MD Emergency Provider Active [facility] Primary Care Provider Active Dr. Jerardo Millan MD Admit Provider, Other Provider Active Dr. Juana Rodriguez MD Other Provider Active Becky MENSAH PAMayank Attending Provider Active Team Status: Active Member Role Status Dates Dr. Asad Mcdonough MD Emergency Provider Active [facility] Primary Care Provider Active Dr. Jerardo Millan MD Admit Provider, Other Provider Active Dr. Juana Rodriguez MD Attending Provider, Other Provid er Active Team Status: Inactive Member Role Status Dates Dr. Asad Mcdonough MD Emergency Provider Active [facility] Primary Care Provider Active Dr. Jerardo Millan MD Admit Provider, Attending Provi shavonne Active Dr. Juana Rodriguez MD Other Provider Active Team Status: Inactive Member Role Status Dates Dr. Jerardo Millan MD Attending Provider, Referring P rovider Active Out of [facility] Doctor Primary Care Provider Active Team Status: Inactive Member Role Status Dates Out of [facility] Doctor Primary Care Provider, Referring Pr ovider Active Dr. Jerardo Millan MD Attending Provider Active Team Status: Inactive Member Role Status Dates Out of [facility] Doctor Primary Care Provider Active Dr. Jerardo Millan MD Attending Provider, Referring P rovider Active Team Status: Active Member Role Status Dates Dr. Jerardo Millan MD Attending Provide r, Referring Provider, Other Provider Active [facility] Primary Care Provider Active Dr. Sherif Kiser MD Other Provider Active Team Status: Inactive Member Role Status Dates Dr. Jerardo Millan MD Attending Provider, Referring P rovider Active [facility] Primary Care Provider Active Dr. Sherif Kiser MD Other Provider Active Team Status: Active Member Role Status Dates Dr. Jerardo Millan MD Attending Provider, Referring Mandy loza Active [facility] Primary Care Provider Active Team Status: Inactive Member Role Status Dates Dr. Jerardo Millan MD Attending Provider, Referring P dago Active [facility] Primary Care Provider Active [employer] Equipment [employer] Mechanic Relationship Specialty Start Date End Date Phillip Diamond MD [address] [place] [address] Surgeon Cardiac Surg 12/06/23 Omer Wray MD [address] [place] [phone] Cardiology 12/06/23 Heavy Equipment Field Mechanic Relationship Specialty Start Date End Date Omer Wray MD [address] [place] [address] PCP - General Cardiology 01/15/24 Phillip Diamond MD [address] [place] [id number] Surgeon Cardiac Surg 12/06/23 Omer Wary MD [address] [place] [address] Cardiology 12/06/23 Moiz Koenig MD [address] [place] [phone] Primary Staff Physician Cardiology 01/19/24 Heavy Equipment Field Mechanic Relationship Specialty Start Date End Date Omer Wray MD [address] [place] [address] PCP - General Cardiology 01/15/24 Phillip Diamond MD [address] [place] [address] Surgeon Cardiac Surg 12/06/23 Omer Wray MD [address] [place] [address] Cardiology 12/06/23 Moiz Koenig MD [address] [place] [phone] Primary Staff Physician Cardiology 01/19/24 Heavy Equipment Field Mechanic Relationship Specialty Start Date End Date Omer Wray MD [address] [address] PCP - General Cardiology 01/15/24 Phillip Diamond MD [facility] [place] [address] Surgeon Cardiac Surg 12/06/23 Omer Wray MD [address] [place] [address] Cardiology 12/06/23 Moiz Koenig MD [address] [place] [phone] Primary Staff Physician Cardiology 01/19/24 Heavy Equipment Field Mechanic Relationship Specialty Start Date End Date Omer Wray MD [address] [address] PCP - General Cardiology 01/15/24 Phillip Diamond MD [address] [place] [address] Surgeon Cardiac Surg 12/06/23 Omer Wray MD [address] [place] [phone] Cardiology 12/06/23 Moiz Koenig MD [address] [place] [address] Primary Staff Physician Cardiology 01/19/24 Heavy Equipment Field Mechanic Relationship Specialty Start Date End Date Omer Wray MD [address] [phone] PCP - General Cardiology 01/15/24 Phillip Diamond MD [address] [place] [address] Surgeon Cardiac Surg 12/06/23 Omer Wray MD [address] [place] [phone] Cardiology 12/06/23 Moiz Koenig MD [address] [place] [address] Primary Staff Physician Cardiology 01/19/24 Heavy Equipment Field Mechanic Relationship Specialty Start Date End Date Omer Wray MD [address] [id number] PCP - General Cardiology 01/15/24 Phillip Diamond MD [address] [place] [address] Surgeon Cardiac Surg 12/06/23 Omer Wray MD [address] [place] [address] Cardiology 12/06/23 Moiz Koenig MD [address] [place] [address] Primary Staff Physician Cardiology 01/19/24 Heavy Equipment Field Mechanic Relationship Specialty Start Date End Date Omer Wray MD [address] [phone] PCP - General Cardiology 01/15/24 Phillip Diamond MD [address] [place] [address] Surgeon Cardiac Surg 12/06/23 Omer Wray MD [address] [place] [address] Cardiology 12/06/23 Moiz Koenig MD [address] [place] [address] Primary Staff Physician Cardiology 01/19/24 Heavy Equipment Field Mechanic Relationship Specialty Start Date End Date Omer Wray MD [address] [phone] PCP - General Cardiology 01/15/24 Phillip Diamond MD [address] [place] [address] Surgeon Cardiac Surg 12/06/23 Omer Wray MD [address] [place] [address] Cardiology 12/06/23 Moiz Koenig MD [address] [place] [address] Primary Staff Physician Cardiology 01/19/24 Heavy Equipment Field Mechanic Relationship Specialty Start Date End Date Omer Wray MD [address] [phone] PCP - General Cardiology 01/15/24 Phillip Diamond MD [address] [place] [address] Surgeon Cardiac Surg 12/06/23 Omer Wray MD [address] [place] [phone] Cardiology 12/06/23 Moiz Koenig MD [address] [place] [address] Primary Staff Physician Cardiology 01/19/24 Heavy Equipment Field Mechanic Relationship Specialty Start Date End Date Omer Wray MD [address] [phone] PCP - General Cardiology 01/15/24 Phillip Diamond MD [address] [place] [address] Surgeon Cardiac Surg 12/06/23 Omer Wray MD [address] [place] [phone] Cardiology 12/06/23 Moiz Koenig MD [address] [place], [place] [phone] Primary Staff Physician Cardiology 01/19/24 Heavy Equipment Field Mechanic Relationship Specialty Start Date End Date Omer Wray MD [address] [phone] PCP - General Cardiology 01/15/24 Phillip Diamond MD [address] [place] [address] Surgeon Cardiac Surg 12/06/23 Omer Wray MD [address] [place] [phone] Cardiology 12/06/23 Moiz Koenig MD [address] [place] [address] Primary Staff Physician Cardiology 01/19/24 Heavy Equipment Field Mechanic Relationship Specialty Start Date End Date Omer Wray MD [address] [address] PCP - General Cardiology 01/15/24 Phillip Diamond MD [address] [place] [address] Surgeon Cardiac Surg 12/06/23 Omer Wray MD [address] [place] [address] Cardiology 12/06/23 Moiz Koenig MD [address] [place], [place] [phone] Primary Staff Physician Cardiology 01/19/24 Heavy Equipment Field Mechanic Relationship Specialty Start Date End Date Omer Wray MD [address] [address] PCP - General Cardiology 01/15/24 Phillip Diamond MD [address] [place] [address] Surgeon Cardiac Surg 12/06/23 Omer Wray MD [address] [place] [address] Cardiology 12/06/23 Moiz Koenig MD [address] [place] [address] Primary Staff Physician Cardiology 01/19/24 Heavy Equipment Field Mechanic Relationship Specialty Start Date End Date [facility]mer Wray MD [address] [facility] [address] [address] PCP - General Cardiology 01/15/24 Phillip Diamond MD [address] [place] [address] Surgeon Cardiac Surg 12/06/23 Omer Wray MD [address] [place] [address] Cardiology 12/06/23 Moiz Koenig MD [address] [place] [address] Primary Staff Physician Cardiology 01/19/24 Heavy Equipment Field Mechanic Relationship Specialty Start Date End Date Omer Wray MD [address] [address] PCP - General Cardiology 01/15/24 Phillip Diamond MD [address] [place] [address] Surgeon Cardiac Surg 12/06/23 Omer Wray MD [address] [place] [address] Cardiology 12/06/23 Moiz Koenig MD [address] [place] [id number] Primary Staff Physician Cardiology 01/19/24 Heavy Equipment Field Mechanic Relationship Specialty Start Date End Date Omer Wray MD [address] [address] PCP - General Cardiology 01/15/24 Phillip Diamond MD [address] [place] [address] Surgeon Cardiac Surg 12/06/23 Omer Wray MD [address] [place] [address] Cardiology 12/06/23 Moiz Koenig MD [address] [place] [address] Primary Staff Physician Cardiology 01/19/24 Team Status: Active Member Role Status Dates [facility] Primary Care Provider Active Team Status: Inactive [...] August 13, 2024 End: August 13, 2024 [facility] Primary Care Provider Active Start: August 13, 2024 End: August 13, 2024 Team Status: Inactive Member Role Status Dates [facility] Primary Care Provider Active Start: September 18, 2024 End: September 18, 2024 [facility] Referring Provider Active Start: 2024 End: September 18, 2024 Evelyn Deleon [employer] PPM CONSULTANT, [employer] PPM CONSULTANT-C Attending Provider Active S tart: September 18, 2024 End: September 18, 2024 Team Status: Inactive Member Role Status Dates [facility] Primary Care Provider Active Start: September 18, 2024 End: September 18, 2024 Evelyn Deleon SAP PPM CONSULTANT, [employer] P[employer] CONSULTANT-C Attending Provider Active S tart: September 18, 2024 End: September 18, 2024 Evelyn Deleon SAP PPM CONSULTANT, [employer] P[employer] CONSULTANT-C Referring Provider Active S tart: September 18, 2024 End: September 18, 2024 Team Status: Inactive Member Role Status Dates [facility] Primary Care Provider Active Start: September 19, 2024 End: September 19, 2024 Dr. Omer Wray MD Attending Provider Active S tart: September 19, 2024 End: September 19, 2024 Team Status: Active Member Role/Relationship Status Dates [facility] Primary Care Provider Active Team Status: Inactive Member Role/Relationship Status Dates Dr. Qamar Rosario DO Attending Provider Active Start : August 13, 2024 End: August 13, 2024 Dr. Qamar Rosario DO Emergency Provider Active Start : August 13, 2024 End: August 13, 2024 [facility] Primary Care Provider Active Start: August 13, 2024 End: August 13, 2024 Team Status: Inactive Member Role/Relationship Status Dates [facility] Primary Care Provider Active Start: September 18, 2024 End: September 18, 2024 [facility] Referring Provider Active Start: Ri 2024 End: September 18, 2024 Evelyn Deleon SAP PPM CONSULTANT, SAP PPM CONSULTANT-C Attending Provider Active S tart: September 18, 2024 End: September 18, 2024 Team Status: Inactive Member Role/Relationship Status Dates [facility] Primary Care Provider Active Start: September 18, 2024 End: September 18, 2024 Evelyn Deleon SAP PPM CONSULTANT, [employer] PPM CONSULTANT-C Attending Provider Active S tart: September 18, 2024 End: September 18, 2024 Evelyn Deleon SAP PPM CONSULTANT, [employer] PPM CONSULTANT-C Referring Provider Active S tart: September 18, 2024 End: September 18, 2024 Team Status: Inactive Member Role/Relationship Status Dates Dr. Omer Wray MD Attending Provider Active S tart: September 19, 2024 End: September 19, 2024 Dr. Omer Wray MD Referring Provider Active S tart: September 19, 2024 End: September 19, 2024 Team Status: Active Member Role/Relationship Status Dates [facility] Primary Care Provider Active Start: October 24, 2024 Dr. Omer Wray MD Attending Provider Active S tart: October 24, 2024 Team Status: Inactive Member Role/Relationship Status Dates Evelyn Deleon SAP PPM CONSULTANT, SAP PPM CONSULTANT-C Attending Provider Active S tart: October 24, 2024 End: October 24, 2024 Evelyn Deleon SAP PPM CONSULTANT, SAP PPM CONSULTANT-C Referring Provider Active S tart: October 24, 2024 End: October 24, 2024 [facility] Primary Care Provider Active Start: October 24, 2024 End: October 24, 2024 Heavy Equipment Field Mechanic Relationship Specialty Start Date End Date Denny Cifuentes MD [address] [place] [address] [address] [place] [address] Surgeon Urology 11/14/22 Heavy Equipment Field Mechanic Relationship Specialty Start Date End Date Denny Cifuentes MD [address] [place] [phone] Surgeon Urology 11/14/22 Heavy Equipment Field Mechanic Relationship Specialty Start Date End Date Omer Wray MD [address] [phone] PCP - General Cardiology 01/15/24 Phillip Diamond MD [address] [place] [address] Surgeon Cardiac Surg 12/06/23 Omer Wray MD [address] [place] [id number] Cardiology 12/06/23 Moiz Koenig MD [address] [place] [address] Primary Staff Physician Cardiology 01/19/24 Team Status: Inactive Member Role/Relationship Status Dates [facility] Primary Care Provider Active Start: September 18, 2024 End: September 18, 2024 [facility] Referring Provider Active Start: Ludwig hernandez 2024 End: September 18, 2024 Evelyn Deleon SAP PPM CONSULTANT, SAP PPM CONSULTANT-C Attending Provider Active S tart: September 18, 2024 End: September 18, 2024 Team Status: Inactive Member Role/Relationship Status Dates [facility] Primary Care Provider Active Start: September 18, 2024 End: September 18, 2024 Evelyn Deleon SAP PPM CONSULTANT, SAP PPM CONSULTANT-C Attending Provider Active S tart: September 18, 2024 End: September 18, 2024 Evelyn Deleon SAP PPM CONSULTANT, SAP PPM CONSULTANT-C Referring Provider Active S tart: September 18, 2024 End: September 18, 2024 Team Status: Inactive Member Role/Relationship Status Dates Dr. Omer Wray MD Attending Provider Active S tart: September 19, 2024 End: September 19, 2024 Dr. Omer Wray MD Referring Provider Active S tart: September 19, 2024 End: September 19, 2024 Team Status: Active Member Role/Relationship Status Dates [facility] Primary Care Provider Active Start: October 24, 2024 Dr. Omer Wray MD Attending Provider Active S tart: October 24, 2024 Team Status: Inactive Member Role/Relationship Status Dates Evelyn Deleon SAP PPM CONSULTANT, SAP PPM CONSULTANT-C Attending Provider Active S tart: October 24, 2024 End: October 24, 2024 Evelyn Deleon SAP PPM CONSULTANT, SAP PPM CONSULTANT-C Referring Provider Active S tart: October 24, 2024 End: October 24, 2024 [facility] Primary Care Provider Active Start: October 24, 2024 End: October 24, 2024 Team Status: Inactive Member Role/Relationship Status Dates [facility] Primary Care Provider Active Start: December 19, 2024 End: December 19, 2024 Dr. Omer Wray MD Attending Provider Active S tart: December 19, 2024 End: December 19, 2024 Team Status: Active Member Role/Relationship Status Dates [facility] Primary care physician Active Start : October 24, 2024 Dr. Omer Wray MD Attending physician Active Start: October 24, 2024 Team Status: Inactive Member Role/Relationship Status Dates Evelyn Deleon SAP PPM CONSULTANT, SAP PPM CONSULTANT-C Attending physician Active Start: October 24, 2024 End: October 24, 2024 Evelyn Deleon SAP PPM CONSULTANT, SAP PPM CONSULTANT-C Referring Provider Active S tart: October 24, 2024 End: October 24, 2024 [facility] Primary care physician Active Start : October 24, 2024 End: October 24, 2024 Team Status: Inactive Member Role/Relationship Status Dates Dr. Omer Wray MD Attending physician Active Start: December 19, 2024 End: December 19, 2024 Dr. Omer Wray MD Referring Provider Active S tart: December 19, 2024 End: December 19, 2024 Team Status: Inactive Member Role/Relationship Status Dates [facility] Primary care physician Active Start : January 13, 2025 End: January 13, 2025 [facility] Referring Provider Active Start: Se ptember 2024 End: January 13, 2025 Jolene Larkin Attending physician Active Start: January 13, 2025 End: January 13, 2025 Team Status: Inactive Member Role/Relationship Status Dates [facility] Primary care physician Active Start : January 13, 2025 End: January 13, 2025 [facility] Referring Provider Active Start: Se [email or web address] End: January 13, 2025 Evelyn Deleon SAP PPM CONSULTANT, SAP PPM CONSULTANT-C Attending physician Active Start: January 13, 2025 End: January 13, 2025 Team Status: Inactive Member Role/Relationship Status Dates [facility] Primary care physician Active Start : January 14, 2025 End: January 14, 2025 Dr. Omer Wray MD Attending physician Active Start: January 14, 2025 End: January 14, 2025 Team Status: Inactive Member Role/Relationship Status Dates [facility] Primary care physician Active Start : January 18, 2025 End: January 18, 2025 Dr. Omer Wray MD Attending physician Active Start: January 18, 2025 End: January 18, 2025 Team Status: Inactive Member Role/Relationship Status Dates [facility] Primary care physician Active Start : January 25, 2025 End: January 26, 2025 Dr. Raymond Madrid MD Emergency Department Physician Ac tive Start: January 25, 2025 End: January 26, 2025 Dr. Juana Rodriguez MD Admitting physician Active Start: January 25, 2025 End: January 26, 2025 Dr. Juana Rodriguez MD Attending physician Active Start: January 25, 2025 End: January 26, 2025 Team Status: Active Member Role/Relationship Status Dates [facility] Primary care physician Active Start : January 26, 2025 Dr. Raymond Madrid MD Emergency Department Physician Ac tive Start: January 26, 2025 Dr. Juana Rodriguez MD Admitting physician Active Start: January 26, 2025 Dr. Juana Rodriguez MD Attending physician Active Start: January 26, 2025 Dr. Juana Rodriguez MD Nurse Practitioner Active Start: January 26, 2025 Team Status: Active Member Role/Relationship Status Dates [facility] Primary care physician Active Start : January 27, 2025 Dr. Omer Wray MD Attending physician Active Start: January 27, 2025 Dr. Omer Wray MD Referring Provider Active S tart: January 27, 2025 Team Status: Inactive Member Role/Relationship Status Dates [facility] Primary care physician Active Start : January 27, 2025 End: January 27, 2025 Dr. Omer Wray MD Attending physician Active Start: January 27, 2025 End: January 27, 2025 Dr. Omer Wray MD Referring Provider Active S tart: January 27, 2025 End: January 27, 2025 Source Comments (unrecognize d section and content) In the event this informatio n is protected by the Federal Confidentiality of Alcohol and Drug Abuse Patient Records regulations: The Federal rules restrict any use of the information to criminally investigate or prosecute any alcohol or drug abuse patient.[facility] HealthIn the event this information is protected by the Federal Confidentiality of Alcohol and Drug Abuse Patient Records regulations: The Federal rules restrict any use of the information to criminally investigate or prosecute any alcohol or drug abuse patient.[facility] HealthIn the event this information is protected by the Federal Confidentiality of Alcohol and Drug Abuse Patient Records regulations: The Federal rules restrict any use of the information to criminally investigate or prosecute any alcohol or drug abuse patient.[facility] HealthIn the event this information is protected by the Federal Confidentiality of Alcohol and Drug Abuse Patient Records regulations: The Federal rules restrict any use of the information to criminally investigate or prosecute any alcohol or drug abuse patient.[facility] HealthIn the event this information is protected by the Federal Confidentiality of Alcohol and Drug Abuse Patient Records regulations: The Federal rules restrict any use of the information to criminally investigate or prosecute any alcohol or drug abuse patient.[facility] HealthIn the event this information is protected by the Federal Confidentiality of Alcohol and Drug Abuse Patient Records regulations: The Federal rules restrict any use of the information to criminally investigate or prosecute any alcohol or drug abuse patient.[facility] HealthIn the event this information is protected by the Federal Confidentiality of Alcohol and Drug Abuse Patient Records regulations: The Federal rules restrict any use of the information to criminally investigate or prosecute any alcohol or drug abuse patient.[facility] HealthIn the event this information is protected by the Federal Confidentiality of Alcohol and Drug Abuse Patient Records regulations: The Federal rules restrict any use of the information to criminally investigate or prosecute any alcohol or drug abuse patient.[facility] HealthIn the event this information is protected by the Federal Confidentiality of Alcohol and Drug Abuse Patient Records regulations: The Federal rules restrict any use of the information to criminally investigate or prosecute any alcohol or drug abuse patient.[facility] HealthIn the event this information is protected by the Federal Confidentiality of Alcohol and Drug Abuse Patient Records regulations: The Federal rules restrict any use of the information to criminally investigate or prosecute any alcohol or drug abuse patient.[facility] HealthIn the event this information is protected by the Federal Confidentiality of Alcohol and Drug Abuse Patient Records regulations: The Federal rules restrict any use of the information to criminally investigate or prosecute any alcohol or drug abuse patient.[facility] HealthIn the event this information is protected by the Federal Confidentiality of Alcohol and Drug Abuse Patient Records regulations: The Federal rules restrict any use of the information to criminally investigate or prosecute any alcohol or drug abuse patient.[facility] HealthIn the event this information is protected by the Federal Confidentiality of Alcohol and Drug Abuse Patient Records regulations: The Federal rules restrict any use of the information to criminally investigate or prosecute any alcohol or drug abuse patient.[facility] HealthIn the event this information is protected by the Federal Confidentiality of Alcohol and Drug Abuse Patient Records regulations: The Federal rules restrict any use of the information to criminally investigate or prosecute any alcohol or drug abuse patient.[facility] HealthIn the event this information is protected by the Federal Confidentiality of Alcohol and Drug Abuse Patient Records regulations: The Federal rules restrict any use of the information to criminally investigate or prosecute any alcohol or drug abuse patient.[facility] HealthIn the event this information is protected by the Federal Confidentiality of Alcohol and Drug Abuse Patient Records regulations: The Federal rules restrict any use of the information to criminally investigate or prosecute any alcohol or drug abuse patient.[facility] HealthIn the event this information is protected by the Federal Confidentiality of Alcohol and Drug Abuse Patient Records regulations: The Federal rules restrict any use of the information to criminally investigate or prosecute any alcohol or drug abuse patient.[facility] HealthIn the event this information is protected by the Federal Confidentiality of Alcohol and Drug Abuse Patient Records regulations: The Federal rules restrict any use of the information to criminally investigate or prosecute any alcohol or drug abuse patient.[facility] HealthIn the event this information is protected by the Federal Confidentiality of Alcohol and Drug Abuse Patient Records regulations: The Federal rules restrict any use of the information to criminally investigate or prosecute any alcohol or drug abuse patient.[facility] Reason for Visit (unrecogniz ed section and content) Reason Comments Referral Information Pre-Op CTHO Consult Cardiac Preop Checklist Reason Comments Spirometry Specialty Diagnoses / Procedures Referred By Contac t Referred To Contact [facility] Diagnoses Disorder of artery or arteriole (HCC) Pre-operative cardiovascular examination Atrial fibrillation, unspecified type (HCC) Mitral valve disorder Procedures LUNG DIFFUSION CAPACITY (DLCO) DIFFUSING CAPACITY Phillip Diamond MD [address] [place] [address] [facility] [place] [address] [place] [address] Referral ID Status Reason Start Date Expiration Date V isits Requested Visits Authorized [id number] Closed Auto-Generate d Referral 12/08/2023 01/06/2025 1 1 Specialty Diagnoses / Procedures Referred By Contac t Referred To Contact [facility] Diagnoses Disorder of artery or arteriole (HCC) Pre-operative cardiovascular examination Atrial fibrillation, unspecified type (HCC) Mitral valve disorder Procedures SPIROMETRY BASELINE ONLY SPMTRY W/VC EXPIRATORY ABELARDO W/WO MXML VOL VNTJ Phillip Diamond MD [address] [place] [address] [place] [address] Referral ID Status Reason Start Date Expiration Date V isits Requested Visits Authorized [id number] Closed Auto-Generate d Referral 12/08/2023 01/06/2025 1 1 Specialty Diagnoses / Procedures Referred By Contac t Referred To Contact Cardiology Diagnoses Disorder of artery or arteriole (HCC) Pre-operative cardiovascular examination Atrial fibrillation, unspecified type (HCC) Mitral valve disorder Procedures CONSULT TO CARDIOLOGY OFFICE/OUTPATIENT [facility] 60 MINUTES Phillip Diamond MD [address] [place], [place] [id number] Referral ID Status Reason Start Date Expiration Date V isits Requested Visits Authorized [id number] Closed PCP Requested Referral 12/08/2023 12/07/2024 1 [...] MTRL W/WO CNTRST IMGES Phillip Diamond MD [address] [place] [address] Ct [facility] [place] [address] Referral ID Status Reason Start Date Expiration Date V isits Requested Visits Authorized [id number] Closed Auto-Generate d Referral 12/08/2023 01/06/2025 1 1 Reason Comments Radio Main J1 Specialty Diagnoses / Procedures Referred By Contact Referred To Contact Anesthesiology / CARDIAC SURGERY Diagnoses MVr +/- MAZE ?[place] 01/22 [facility] Procedures PRE OP Phillip Diamond MD [facility] [place] [address] [facility] [address] [place] [address] Referral ID Status Reason Start Date Expiration Date Visits Re quested Visits Authorized [id number] Closed 01/22/2024 04/23/2024 1 1 Reason Comments Patient Education Specialty Diagnoses / Procedures Referred By Dwayne t Referred To Contact Cardiac Surg Diagnoses Disorder of artery or arteriole (HCC) Pre-operative cardiovascular examination Atrial fibrillation, unspecified type (HCC) Mitral valve disorder Procedures CARDIOTHORACIC PREOP EVALUATION OFFICE/OUTPATIENT [facility] 60 MINUTES Phillip Diamond MD [facility] [place] [address] Referral ID Status Reason Start Date Expiration Date V isits Requested Visits Authorized [id number] Closed PCP Requested Referral 12/08/2023 12/07/2024 1 [...] BYPASS FULL MAZE W/ C[facility]ULMONARY [facility] [address] [place] [id number] Referral ID Status Reason Start Date Expiration Date Visits Re quested Visits Authorized [id number] 1 1 Reason Comments Follow Up Phone Call [facility] follow up call a kristie clear. Reason Comments Post Op Reason Comments Patient Update Specialty Diagnoses / Procedures Referred By Contac t Referred To Contact Radiology Diagnoses Dyspnea, unspecified type Procedures XR CHEST PA+LAT 2 VIEWS Chelsie Nieves, [employer]ER [address] [place] [address] [facility] DIAGNOSTIC RADIOLOGY [address] [place] [address] [place] [address] Referral ID Status Reason Start Date Expiration Date Visits Re quested Visits Authorized [id number] Closed 07/10/2023 07/09/2024 1 1 Reason Comments Other Annual follow up, hi dication refills Denies uti symptoms, denies worsening [...] BE BASED ON THE PRIMARY CLINICAL RECORDS. [facility]. provides no warranty or guarantee of the accuracy or completeness of information in this document.
[2025-04-20] MEDS: Albuterol 2.5 MG/3 ML VIAL.NEB. INHALATION (12:10)
[2025-04-20 12:27] LABS: Hematocrit 43.4 % (40-54); Hemoglobin 13.6 g/dL (13.0-16.5); Immature Granulocytes Count 0.020 X10^3/uL (0.0-0.0); Mean Corp Hgb Conc 31.3 g/dL (32-36); Mean Corpuscular Volume 88.8 fL (80-94); Mean Platelet Vol. 11.2 fl (6.2-12.0); NRBC Flagged by Analyzer 0 % (0-5); Platelet Count 170 K/mm3 (150-450); RBC Distribution Width CV 14.1 % (11.6-14.6); RBC Distribution Width SD 45.5 fl (35.1-43.9); Red Blood Count 4.89 M/mm3 (4.6-6.2); White Blood Count 4.6 K/mm3 (4.4-11.0)
[2025-04-20 13:32] LABS: Pro- Brain NATRIURETIC PEPTIDE 393 pg/mL (<=900)
[2025-04-20 13:35] LABS: Anion Gap 11 (7-18); BUN 18 mg/dL (4-19); BUN/Creat Ratio 16.7 RATIO (10-20); Calcium,Total 9.1 mg/dL (7.6-11.0); Carbon Dioxide 25.2 mmol/L (20.0-29.0); Chloride 104 mmol/L (96-106); Estimated Creatinine Clearance 97.72 ml/min (50-250); Glucose 80 mg/dL (70-99); Potassium 4.2 mmol/L (3.5-5.1)
[2025-04-20 13:56] LABS: Troponin T High Sensitivity 61 ng/L (<=22)
[2025-04-20 14:43] LABS: Troponin T High Sens 2 HR 51 ng/L (<=22)
--- NOTE | 2025-04-20 14:49 | PCM.HP.STD ---
HPI - General General Date of Admission: 04/20/25 Date of Service: 04/20/25 Chief Complaint: Recent URI w/ F/C, cough, productive sputum, now with wheezing and worsening dyspnea. HPI Narrative The patient is a 70 y/o M w/ PMHx: Hx Sick sinus syndrome s/p pacemaker status, CKD stage II per previous GFR trending, PAF/Flutter s/p MAZE/RFA, HFpEF, Anxiety and Depression/PTSD, HTN, HLD, JOSÉ MIGUEL on CPAP, Morbid obesity, Asthma, Valvular Heart Disease s/p TV and MV repair, Former tobacco use, Pulmonary HTN who presents to the [facility] ED on 04/12/2025 with history of shortness of breath noting last and Monday developed cough as well as fever however his fevers seem to have subsided but he has continued to cough with purulent green sputum with wheezing attempting his home nebulizing treatments however is not been improving his symptoms and has not been on any steroid therapy prior to eventual ED evaluation. Workup in the ED included T98.6, heart rate 60, BP 140/105, respiratory rate 19, 94% on room air, CBC with WBC 4.6, Hgb 13.6, MCV 88.8, platelet 170 without marked shift, BMP with BUN/creat 18/1.07, GFR 76, troponin initial 61 with repeat delta 2-hour 51, NT proBNPII 393, chest x-ray with no acute cardiopulmonary findings with mild pulmonary congestion, EKG with AV dual paced rhythm. In the ED patient administered albuterol therapy x 1, DuoNeb therapy x 2, Solu-Medrol 125 mg IV x 1. [facility] Medical History History of pacemaker Wears hearing aid Wears glasses PTSD (post-traumatic stress disorder) Anxiety Arthritis Vertigo Former smoker CPAP (continuous positive airway pressure) dependence History of pain when walking History of stress test Hypertension History of echocardiogram Cardiology follow-up encounter History of atrial fibrillation Acute posterior anal fissure Hemorrhoids, internal, with bleeding Paroxysmal atrial fibrillation Secondary pulmonary arterial hypertension Essential (primary) hypertension Chronic diastolic (congestive) heart failure Asthma Sick sinus syndrome Atypical atrial flutter Bradycardia Morbid obesity with BMI of 40.0-44.9, adult Home Medications ?Medication ?Instructions ?Recorded ?Last Taken ?Type albuterol sulfate 90 mcg/actuation 2 puff inhalation Q6H PRN PRN 07/21/17 07/18/17 History aerosol inhaler Wheezing/SOB lisinopril 20 mg tablet 20 mg PO DAILY 05/23/18 01/27/25 History tadalafil 5 mg tablet 5 mg PO DAILY 12/19/22 11/19/23 History eplerenone 25 mg tablet (Inspra) 12.5 mg (1/2 x 25 mg) PO DAILY #30 11/13/23 Unknown Rx tabs diclofenac sodium 1 % topical gel 2 g topical ONCE PRN Arthritis Pain 02/14/24 Unknown History (Voltaren Arthritis Pain) empagliflozin 25 mg tablet 12.5 mg PO QAM 02/14/24 Unknown History metoprolol succinate 50 mg 50 mg PO QDAY #90 tabs 03/13/24 01/27/25 Rx tablet,extended release 24 hr rivaroxaban 20 mg tablet 20 mg PO QDAY 09/18/24 01/25/25 History furosemide 20 mg tablet 20 mg PO QAM 01/13/25 Unknown History pregabalin 75 mg capsule (Lyrica) 75 mg PO BID 01/25/25 Unknown History cholecalciferol (vitamin D3) 50 2,000 unit PO DAILY 04/20/25 Unknown History mcg (2,000 unit) capsule mometasone-formoterol HFA 200 2 inh inhalation Q12H 04/20/25 Unknown History mcg-5 mcg/actuation aerosol inhaler (Dulera) montelukast 10 mg tablet 10 mg PO QHS 04/20/25 Unknown History Allergy/AdvReac Type Severity Reaction Status Date / Time Environmental Allergies: Allergy wheezing, Verified 04/20/25 11:24 Uncoded (hay fever) cough Family History Mother Diabetes Hypertension Father Cancer prostate Other CVA (cerebral vascular accident) Surgical History History of open heart surgery S/P hernia repair S/P total knee replacement (08/08/23) History of umbilical hernia repair Hx of laparoscopy Status post bilateral hernia repair History of colonoscopy (11/25/19) History of hemorrhoidectomy History of left heart catheterization (07/21/17) Presence of permanent cardiac pacemaker (12/01/17) History of cardioversion (06/11/18) History of cardiac radiofrequency ablation (08/24/18) Social History household members: spouse Smoking Status: Former smoker how long ago did patient quit smokin alcohol intake: current alcohol intake frequency: holidays/special occasions only substance use type: does not use caffeine: Yes Type: carbonated beverages Number of servings: 5 and coffee ROS ROS Narrative Admission Review of Systems: CONSTITUTIONAL: No weight loss, + fever, chills, weakness or fatigue. HEENT: Eyes: No visual loss, blurred vision, double vision or yellow sclerae. Ears, Nose, Throat: No hearing loss, sneezing, congestion, runny nose or sore throat. SKIN: No rash or itching, lesions, wounds. CARDIOVASCULAR: No chest pain, chest pressure or chest discomfort, palpitations, edema, orthopnea, syncopal events. RESPIRATORY: + Dyspnea, productive cough, wheezing. No hemoptysis. GASTROINTESTINAL: No anorexia, nausea, vomiting or diarrhea, abdominal pain, melena, BRBPR. GENITOURINARY: No dysuria, frequency, urgency or retention. NEUROLOGICAL: No headache, dizziness, syncope, paralysis, ataxia, numbness or tingling in the extremities, focal weakness, change in bowel or bladder control, seizure. MUSCULOSKELETAL: + muscle, back pain, joint pain or stiffness. HEMATOLOGIC: No anemia. + Easy bleeding/bruising. LYMPHATICS: No enlarged nodes. No history of splenectomy. PSYCHIATRIC: No history of depression or anxiety. ENDOCRINOLOGIC: No reports of sweating, cold or heat intolerance. No polyuria or polydipsia. ALLERGIES: + History of asthma, allergic rhinitis. Patient's Goals Of Care . What would you like to achieve or improve as a result of your hospital stay?: Resolve his acute illness, evaluate for different viruses, resolve dyspnea. Vital Signs Vital Signs Vital Signs: 04/20/25 11:24 04/20/25 11:45 04/20/25 11:45 Temperature 97.4 F L 98.2 F Temperature Source Oral Oral Pulse Rate 91 14 L Respiratory Rate 26 H 60 H Respiratory Effort Labored Accessory Muscle Use Respiratory Depth Deep Respiratory Pattern Normal Blood Pressure 149/83 H 137/68 H Blood Pressure Mean 105 91 Pulse Ox 94 95 Oxygen Delivery Method Room Air Room Air Room Air Oxygen Flow Rate (L/min) 04/20/25 11:55 04/20/25 12:11 04/20/25 12:22 Temperature 98.9 F Temperature Source Oral Pulse Rate 60 60 Respiratory Rate 22 H 19 H Respiratory Effort Respiratory Depth Respiratory Pattern Tachypnea Blood Pressure 136/75 H Blood Pressure Mean 95 Pulse Ox 93 Oxygen Delivery Method Room Air Room Air Oxygen Flow Rate (L/min) 04/20/25 12:36 04/20/25 12:36 04/20/25 13:00 Temperature 98.9 F Temperature Source Oral Pulse Rate 60 60 62 Respiratory Rate 22 H 24 H 24 H Respiratory Effort Respiratory Depth Respiratory Pattern Blood Pressure 173/72 H Blood Pressure Mean 105 Pulse Ox 87 92 98 Oxygen Delivery Method Room Air Nasal Cannula Room Air Oxygen Flow Rate (L/min) 2 04/20/25 14:00 Temperature 98.6 F Temperature Source Oral Pulse Rate 60 Respiratory Rate 19 H Respiratory Effort Respiratory Depth Respiratory Pattern Blood Pressure 140/105 H Blood Pressure Mean 116 Pulse Ox 94 Oxygen Delivery Method Room Air Oxygen Flow Rate (L/min) Weight Weight: 319 lb 10.724 oz Body Mass Index (BMI) 43.3 Physical Exam Narrative Physical Examination: General: Awake, alert, oriented x 3 and cooperative, seated upright in the ED bed, fatigued, ill-appearing, mildly tachypneic but no distress. Skin: Normal color, normal turgor, no icterus, no cyanosis except occasional stage ecchymoses, abrasion. HEENT: AT/NC, EOMI, PERRLA, mildly dry MM, no carotid bruits or JVD noted. Lungs: Diminished, greater bases, occasional expiratory wheeze, mildly rhonchorous, more so bases, mildly increased respiratory rate but no distress, notes feeling improved since initial ED arrival. Heart: Regular rate and rhythm; no gallop, rub audible. Abdomen: Soft, morbidly obese, NTTP distant BS, difficult discern distention HSM given habitus. Extremities: No cyanosis, no clubbing, mild ankle not markedly pitting edema. Neurological: Patient awake, alert, oriented as noted cognitive function intact; pupils equally reactive to light and accommodation, cranial nerves grossly normal, moving all 4 extremities, no focal deficits, strength moderately to severely globally decreased secondary to acute presentation. Psychiatric: Affect appears flat, fatigued, ill-appearing, no acute evidence of depressive or anxiety feelings but does have underlying history. Results Lab / Micro Data 04/20/25 11:45 04/20/25 11:45 Labs: Laboratory Results - last 24 hr 04/20/25 11:45: WBC 4.6, RBC 4.89, Hgb 13.6, Hct 43.4, MCV 88.8, MCH 27.8, MCHC 31.3 L, RDW Std Deviation 45.5 H, RDW Coeff of Mar 14.1, Plt Count 170, MPV 11.2, Immature Gran % (Auto) 0.400, Neut % (Auto) 57.7, Lymph % (Auto) 25.1, Stanton % (Auto) 14.6 H, Eos % (Auto) 1.3, Baso % (Auto) 0.9, Absolute Neuts (auto) 2.7, Absolute Lymphs (auto) 1.15, Nucleated RBC % 0, Sodium 139, Potassium 4.2, Chloride 104, Carbon Dioxide 25.2, Anion Gap 11, BUN 18, Creatinine 1.07, Estim Creat Clear Calc 97.72, Est GFR (MDRD) Non-Af 76, BUN/Creatinine Ratio 16.7, Glucose 80, Calcium 9.1, Troponin T High Sens 61 H* D, NT pro BNP II 393 04/20/25 14:00: Troponin T Hi Sens 2 Hr 51 H Imaging Radiology Impression Chest X-Ray 04/20/25 11:55 IMPRESSION: No acute cardiopulmonary pathology. Mild pulmonary congestion. Reading Location: [id number] Assessment & Plan Assessment/Plan (1) Acute asthma exacerbation: (2) Hypoxia: PLAN: Plan The patient is a 70 y/o M w/ PMHx: Hx Sick sinus syndrome s/p pacemaker status, CKD stage II per previous GFR trending, PAF/Flutter s/p MAZE/RFA, HFpEF, Anxiety and Depression/PTSD, HTN, HLD, JOSÉ MIGUEL on CPAP, Morbid obesity, Asthma, Valvular Heart Disease s/p TV and MV repair, Former tobacco use, Pulmonary HTN who presents to the [facility] ED on 04/12/2025 with history of shortness of breath noting last and Monday developed cough as well as fever however his fevers seem to have subsided but he has continued to cough with purulent green sputum with wheezing attempting his home nebulizing treatments however is not been improving his symptoms and has not been on any steroid therapy prior to eventual ED evaluation. #1. Acute Hypoxia secondary to Acute on Chronic Asthma exacerbation suspected secondary to recent acute viral syndrome, potentially now with a superimposed bacterial infection/acute bronchitis but uncertain: Will admit to PCU given #2, currently not requiring oxygen but if necessary would maintain on oxygen with wean as tolerated to room air, continue ATC duonebs, PRN albuterol, IV methylprednisolone, HOB, IS parameters, will obtain sputum Cx, respiratory viral panel, procalcitonin, if work-up concerning for bacterial etiology will initiate antibiotic therapy. #2. Elevated cardiac enzymes suspected secondary to demand given acute presentation #1: Will maintain on telemetry, continue to cycle cardiac enzymes to be cautious per ED initiated trending order with initial as noted 61 and repeat delta 2-hour 51 thus trending downward, magnesium requested, continue Xarelto therapy, repeat ECHO pending given patient was supposed to have one [facility] the [facility] 04/21/25 and currently has indeterminant troponin. although not expected given currently trending down however if enzymes rise notably low threshold to hold Xarelto and transition to heparin drip. #3. HFpEF complicated by pulmonary hypertension: Most recent echocardiogram noted 10/25/19 with normal LV size, LVEF 60%, s/p mitral valve repair with annuloplasty ring, moderate concentric LVH, PASP 42 mmHg 25 with a normal tricuspid valve with mild to moderate tricuspid valve insufficiency with an anoplasty ring in the tricuspid position. Repeat ECHO pending given patient was supposed to have one at the [facility] 04/21/25 and currently has indeterminant troponin. Will continue patient Xarelto however low threshold to hold and transition to heparin drip pending enzyme trending, continue metoprolol, lisinopril, Lasix, eplerenone, tadalafil, temporally hold empagliflozin in case of NPO status needs, #4. Valvular heart disease: Per record status post TV and MV repair, most recent echocardiogram noted 10/25/19 with normal LV size, LVEF 60%, s/p mitral valve repair with annuloplasty ring, moderate concentric LVH, PASP 42 mmHg 25 with a normal tricuspid valve with mild to moderate tricuspid valve insufficiency with an anoplasty ring in the tricuspid position. Repeat ECHO pending given patient was supposed to have one at the [facility] 04/21/25 and currently has indeterminant troponin. #5. Chronic Kidney Disease Stage II per previous GFR check: Admission BUN/Cr 18/1.07, GFR 76, baseline renal function primarily 0.9-1.2, repeat BMP in AM. #6. PAF/flutter: s/p MAZE/RFA, will continue patient home Xarelto and metoprolol home regimen. Repeat ECHO pending given patient was supposed to have one at the [facility] 04/21/25 and currently has indeterminant troponin. #7. History sick sinus syndrome: Status post pacemaker status, if enzymes do trend upward although currently trending downward however if this does occur low threshold to then request for interrogation. #8. Hypertension: Will continue patient home Lasix, lisinopril, metoprolol with hold parameters as needed, PRN hydralazine. #9. Anxiety and depression/PTSD: Noted history, per current list does not appear to be on a chronic regimen, encourage follow-up outpatient and evaluation as previously arranged. #10. Morbid Obesity: Weight loss and lifestyle changes encouraged. #11. Former tobacco use: Encourage continued tobacco cessation. #12. JOSÉ MIGUEL: CPAP nightly. #13. DVT prophylaxis: Xarelto, will continue however if enzymes rise significantly will need to transition off to heparin drip in preparation for cardiac catheterization. #14. CODE status: Patient notes his is his medical decision-maker if necessary. Discussed CODE status at length including difference between FULL code, DNR-CCA and DNR-CC status. Following discussions about the differences in these status, requested Full Code status. Advanced Care Planning Face to Face Time: 16 minutes. Charges/Coding Visit Charges Inpatient E&M: 90073 Init Hosp L3 Procedures Hospitalists Procedures: 26639 Advncd Care Plan 30 Min
--- OUTSIDE RECORDS SUMMARY | 2025-04-20 15:21 | XMS RPT_ITS | CCD ---
Author Organization [facility] Care Team Providers Care Environmental Attorney Name Role Phone Anabelle Ervin Unavailable Birdie [...] Care Unavailable Dr. Asad Mcdonough Emergency [place] Primary Care Provider Dr. Jerardo Thompson Attending Provider Dr. Jerardo Millan Other Provider Dr. Jerardo Millan Admit Provider Dr. Juana Rodriguez Other Provider KEVEN Neri Attending Provider Dr. Juana Rodriguez Attending Provider Dr. Asad Mcdonough Emergency [place] Primary Care Provider Dr. Jerardo Thompson Attending Provider Dr. Jerardo Millan Other Provider Dr. Jerardo Millan Admit Provider Dr. Juana Rodriguez Other Provider KEVEN Neri Attending Provider Dr. Juana Rodriguez Attending Provider Dr. Jerardo Millan Referring Provider [facility] Doctor, Out of Primary Care Provider Kyung amos [facility] Doctor, Out of Referring Provider Unavailab Dr. Sherif Shabazz Other Provider PROVIDER, UNKNOWN Attending Unavailable PROVIDER, UNKNOWN Admitting Unavailable CHELSIE NIEVES Referring Unavailable Phillip Diamond MD Unavailable Omer Wray MD Unavailable Omer Wray MD Primary Care Provider Moiz Koenig MD Unavailable Unavailable [facility] Wray MD Attending Provider Dr. Omer Wray MD Referring Provider Dr. Qamar Rosario DO Attending Provider Dr. Qamar Rosario DO Emergency Provider [facility] [place] Care [place] Referring Provider Unavailable Roof FORMULA ROOM WORKER-C, Evelyn Hernandez Attending Provider Roof FORMULA ROOM WORKER-C, Evelyn Hernandez Referring Provider Dr. Omer Wray MD Attending Provider Dr. Omer Wray MD Referring Provider Denny Cifuentes MD Unavailable DENNY CIFUENTES Attending Unavailable OMER WRAY Primary Care Unavailable Broderick Bundy MD Unavailable Luis Mayorga MD Unavailable Ann Lam Unavailable [place] Primary [place] Primary Care Physician Unavailab Dr. Omer Meadows MD Attending Physician Roof FORMULA ROOM WORKER-CEvelyn Attending Physician Roof FORMULA ROOM WORKER-C, Evelyn Hernandez Referring Provider [facility] [place] Primary [facility] Physician Unavailab roxann Wray MD, Dr. Tello Referring Provider [place] Referring Provider Unavailable Jolene Larkin Attending Physician Unavailable Julius UGALDE, Dr. Andrade Emergency Department Physici an Michael UGALDE, Dr. Arias Admitting Physician Micheal UGALDE, Dr. Arias Attending Physician Michael UGALDE, Dr. Arias Nurse Practitioner [phone] Phillip DIAMOND Referring Unavailable NILS, OMER [...] Unavailable [facility] Unavailable Nils, Thompson Referring Unavailable Nils, Omer Attending [facility] Unavailable Roof FORMULA ROOM WORKER, Evelyn H Attending Unavailable Roof FORMULA ROOM WORKER, Evelny H Referring [facility]available [facility] Unavailable Nils, Omer Referring Unavailable Nils, Thompson Attending [facility] Unavailable Nils, Thompson Referring Unavailable Nils, Omer Attending Unavailable Roof FORMULA ROOM WORKER, Evelyn H Attending [facility] Referring Un[facility] Unavailable Nils, Thompson Attending [facility] Unavailable Juana Rodriguez Attending [facility] Unavailable Nils, Omer Referring Unavailable Nils, Thompson Attending Unavailable Roof FORMULA ROOM WORKER, Evelyn H Referring Unavailable Roof FORMULA ROOM WORKER, Evelyn H Attending [facility] Unavailable Roof FORMULA ROOM WORKER, Evelyn H Referring Unavailable Roof FORMULA ROOM WORKER, Evelyn H Attending [facility] Unavailable Nils, Thompson Referring Un[facility] Unavailable Nils, Thompson Attending [facility] Referring Unavailable Roof FORMULA ROOM WORKER, Evelyn H Attending [facility] Unavailable Nils, Omer Attending Unavailable Nils, Thompson Referring [facility] Unavailable Nils, Thompson Attending [facility] Unavailable Roof FORMULA ROOM WORKER, Evelyn H Attending [facility] Referring Unavailable Roof FORMULA ROOM WORKER, Evelyn H Attending [facility] Referring Unavailable Nils, Thompson Attending Unavailable Nils, Thompson Referring [facility] Unavailable Le, Qamar Attending [facility] Unavailable Nils, Thompson Attending Unavailable Nlis, Thompson Referring Unavailable Roof FORMULA ROOM WORKER, Evelyn H Referring Unavailable Roof FORMULA ROOM WORKER, Evelyn H Attending [facility] Unavailable Juana Rodriguez Admitting Unavailable Juana Rodriguez Consulting [facility] Unavailable Nils, Thompson Referring Unavailable Nils, Thompson Attending [facility] Unavailable Nils, Omer Attending [facility] Unavailable Nils, Thompson Attending [facility] Unavailable Jolene Larkin Attending [facility] Referring Unavailable Nils, Omer Referring Unavailable Nils, Omer Attending [facility] Unavailable Le, Qamar Attending [facility] Unavailable Nils, Thompson Referring Unavailable Nils, Thompson Attending [facility] Unavailable Nils, Thompson Referring Unavailable Nils, Omer Attending [facility] Unavailable Nils , Dr. Tello Attending Physician Dr. Omer Wray MD Referring Provider [phone] [facility], [place] Primary Care Physician Unavailab [facility] Referring Provider Unavailable [facility] FORMULA ROOM WORKER-CEvelyn Attending Physician [phone] [facility], [place] Primary Care Physician Unavail Dr. Raymond Mendoza MD Emergency Department Physici an Dr. Juana Rodriguez MD Admitting Physician Dr. Juana Rodriguez MD Attending Physician Dr. Juana Rodriguez MD Nurse Practitioner [phone] Jolene Larkin Attending Physician Unavailable Allergies Allergy Classification Reported Allergen(s) Allergy Type Date of Onset Reaction(s) Facility (18 sources) hydroCHLOROthiazide; Translations: [HYDROCHLOROTHIAZIDE] Drug Allergy 01-13-2 022 Other: See Comments [facility] (18 sources) Pollen; Translations: [POLLEN EXTRACTS] Drug Allergy Itching [facility] (18 sources) Influenza Virus Vaccines; Translations: [INFLUENZA VIRUS VACCINES] Drug Allergy Other: See Comments [facility] (2 sources) hydroCHLOROthiazide Drug Allergy Other [facility] (2 sources) Influenza Vaccines Drug Allergy Other [facility] (2 sources) redtop grass pollen extract Drug Allergy Itching [facility] (2 sources) sildenafil Drug Allergy [facility] (1 source) Allergic rhinitis due to pollen Allergy to substance (disorder) [facility] (1 source) Environmental Allergies: Uncoded; Translations: [Environmental Allergies: Uncoded] Propensity to adverse reactions (disorder) [facility] Repository Medications Current Medications Medication Drug [...] 90 Mcg/inh as needed ALBUTEROL SULFATE NEBU [id number] Jen Page take 2 puff(s) by in halation three times daily albuterol sulfate HFA 90 mcg/actuation aerosol inhaler Inhale 2 puff using inhaler three times a day active [facility] take 2 puff(s) [...] inhaler twice a day active Ana Rosa [facility] cholecalciferol 0.05 mg [...] Active docusate sodium 50 mg / sennosides, snf 8.6 mg oral tablet (5 sources) Start: [...] once a day active Mary Jo Escobar [facility] eplerenone 25 mg oral tablet (20 sources) Aldosterone Antagonist Start: 11-13-2023 take 1 tablet by mouth once daily Start: 11-01-2023 eplerenone (IN SPRA) 25 mg tablet Take 12.5 mg by mouth once daily. 11/01/2023 Active take 0.5 tablet by m outh once daily eplerenone 25 mg tablet take 1/2 tablet by mouth once daily (Jardiance) active Luna Herring [facility] 12 hr fexofenadine [...] 2 December 20, 2022 polyethylene glycol 3350 [id number] mg powder for oral solution (5 sources) [...] sources) Start: 01-25-2025 take 1 capsule by [facility] twice daily Start: 07-08-2024 take 1 capsule by mo [facility] twice daily pregabalin (Lyrica) 75 MG capsule Take 75 mg by mouth 2 times daily. 07/08/2024 Active take 1 capsule by mo [facility] once daily pregabalin 75 mg capsule 1 capsule by mouth once a day active Mary Jo Escobar LPN [facility] tadalafil 10 mg oral tablet (20 sources) [...] Drug Class(es) Dates Sig (Normalized) Sig (Original) [id number] 97 ointment (15 sources) Start: 12-03-2019 End: 03-24-2020 A0-[id number] 7 ointment Discontinued 0 .ROUTE .MEDSUPPLY 1 December 02, 2019 11:00pm March 24, 2020 4:15pm As directed Start: 12-03-2019 End: 03-24-2020 A0-[id number] ointme nt Discontinued 0 .ROUTE .MEDSUPPLY 1 December 03, 2019 12:00am March 24, 2020 5:15pm As directed Start: 12-03-2019 End: 03-24-2020 A0-[id number] ointme nt Discontinued 0 .ROUTE .MEDSUPPLY December [...] Anti-inflammatory Drug IBUPROFEN CAPS prn IBUPROFEN CAPS [id number] Trey Duenas LORazepam 0.5 mg oral tablet (6 sources) Benzodiazepine Start: 07-12-2010 End: 11-30-2012 take 1-2 tablets by mouth once daily as needed ATIVAN 0.5 MG TABS 1-2 tablets by mouth daily as needed LORAZEPAM [id number] Jen Page mupirocin 0.02 mg/mg topical ointment [...] ALEVE 220 MG TABS PRN NAPROXEN SODIUM [id number] Omer Wray MD Aleve (diclofena c) 1 % topical gel Apply a small amount to affected area as needed for pain active Ana Rosa Saba [facility] QUEtiapine 50 mg oral tablet (6 sources) Atypical Antipsychotic End: 11-30-2012 SEROQUEL 50 MG TABS as needed QUETIAPINE FUMARATE [id number] Trey Duenas rivaroxaban 20 mg oral tablet [...] sources) Long-term current use of anticoagulant; Translations: [long-term (current) use of anticoagulants] 03-01-2024 Episodic Other aftercare (1 source) 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 [place] [address] Pacemaker Check Date of Service: 02/11/25 1538 MR#: [id number] Acct: [id number] Name: TRE QUIÑONES Rep #: [id number] : 1955 From: Jolene Larkin Age/Sex: 70/M [place] [facility] [place] Signed Billing Codes PM Device Codes: 43828 PM Dev Prog Eval, Dual Assessment and [...] Staples Signature: Date (if applicable) CC: Normal [facility] Pacemaker reportOrdered By: Omer Wray on 01-27-2025 Study report [facility] Imaging Services [address] [place] [address] TXT:Device Implant / Explant MR#: [id number] Acct: [id number] Name: TRE QUIÑONES Rep #:[id number] : 1955 69 From: Omer Wray MD [place]CP[place] Hospital Status[place] [place] Patient: TRE QUIÑONES Study Date: 01/27/2025 Performing: Omer Wray MD : 1955 Age: 69 Gender: male PROCEDURES PERFORMED LP07-([id number])BATTERY REMOVAL+REPLACEMENT PACER-DUAL LEAD INDICATIONS Sinoatrial node dysfunction/Sick [...] PPM generator was then interrogated by the analyst programmer. Device pocket was irrigated with antibiotic. Subcutaneous closure was completed with 3-0 Vicryl. Skin closure was completed with 4-0 Vicryl. Instrument, sponge, and needle counts were noted to be normal. The patient tolerated the procedure well. 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 Omer Wray MD; [facility] ~ Date Dictated: 01/27/25 1145 Date Transcribed: 01/27/25 1226 Brim Stiffener: [place] Signed [facility] Work Phone: TXT:Device Implant / Explant on 01-27-2025 TXT:Device Implant / Explant [facility] Imaging Services [address] [place] [address] TXT:Device Implant / Explant MR#: [id number] Acct: [id number] Name: TRE QUIÑONES Rep #: [id number] : 1955 69 From: Omer Wray MD PCP: [facility] Status:[facility] [place] Patient: TRE QUIÑONES Study Date: 01/27/2025 Performing: Omer rWay MD : 1955 Age: 69 Gender: male PROCEDURES PERFORMED LP07-(90212)BATTERY REMOVAL+REPLACEMENT PACER-DUAL LEAD INDICATIONS Sinoatrial node dysfunction/Sick [...] PPM generator was then interrogated by the analyst programmer. Device pocket was irrigated with antibiotic. Subcutaneous closure was completed with 3-0 Vicryl. Skin closure was completed with 4-0 Vicryl. Instrument, sponge, and needle counts were noted to be normal. The patient tolerated the procedure well. Estimated Blood Loss: < 10 mls IMPLANTED / EX-PLANTED DEVICES IMPLANTED DEVICE(S): PPM Generator - Basket Bottom Machine Operator: [employer], Model # ESSENTIO MRI L131 , Serial # [id number] DEVICE PARAMETERS DEVICE PARAMETERS: Mode- DDDR Lower [...] (if indicated) CC: Dr. Omer Wray MD; [facility] Date Dictated: 01/27/25 1145 Date Transcribed: 01/27/25 1226 Brim Stiffener: [place] Signed Normal [facility] Absolute lymphocyte countOrd ered By: Juana Rodriguez on 01-26-2025 Lymphocytes Auto (Unsp spec) [#/Vol] 1.18 10*3/uL 0.83-4.51 [facility] Absolute neutrophil countOrd ered By: Juana Rodriguez on 01-26-2025 Neutrophils (Bld) [#/Vol] 8.0 10*3/uL High 2.0-7.7 [facility] Anion gap in Serum or Plasma Ordered By: Juana Rodriguez on 01-26-2025 Anion gap [Moles/Vol] 13 mmol/L 5-15 [facility] Automated lymphocyte count a s percentage of total leukocytesOrdered By: Juana Rodriguez on 01-26-2025 Lymphocytes/100 WBC Auto (Unsp spec) 12.4 % Low 19-41 [facility] BUN/creatinine ratioOrdered By: Juana Rodriguez on 01-26-2025 Urea nitrogen/Creatinine [Mass ratio] 28.5 mg/mg High 02-10 [facility] Basic Metabolic Profile (BMP )on 01-26-2025 BUN/CRE 28.5 RATIO High 02-10 [facility] Comment on above: Performed By: #### L 500.2500, L100.0100 #### [facility] [address] [place], [address] Calcium [Mass/Vol] 9.7 mg/dL Normal 7.6-11.0 [facility] Comment on above: Performed By: #### L 500.2500, L100.0100 #### [facility] [address] [place], [address] Chloride [Moles/Vol] 105 mmol/L Normal 98-108 [facility] Comment on above: Performed By: #### L 500.2500, L100.0100 #### [facility] [address] [place], [address] CO2 [Moles/Vol] 23.1 mmol/L Normal 21.0-32.0 [facility] Comment on above: Performed By: #### L 500.2500, L100.0100 #### [facility] [address] [place], [address] Creatinine [Mass/Vol] 0.96 mg/dL Normal 0.70-1.20 [facility] Comment on above: Performed By: #### L 500.2500, L100.0100 #### [facility] [address] [place], [address] ECRCL 109.63 ml/min Normal 50-250 [facility] Comment on above: Performed By: #### L 500.2500, L100.0100 #### [facility] [address] [place], [address] GAP 13 Normal 5-15 [facility] Comment on above: Performed By: #### L 500.2500, L100.0100 #### [facility] [address] [place], [address] GFR/1.73 sq M.predicted among non-blacks MDRD (S/P/Bld) [Vol rate/Area] 86 mL/min/{1.73_m2} Normal >60 [facility] Comment on above: Result Comment: mL/m in/1.73m2 CKD-EPI Creatinine Equation (2020) Performed By: #### L 500.2500, L100.0100 #### [facility] [address] [place], [address] Glucose [Mass/Vol] 135 mg/dL High 70-99 [facility] Comment on above: Performed By: #### L 500.2500, L100.0100 #### [facility] [address] [place], [address] Potassium [Moles/Vol] 4.8 mmol/L Normal 3.3-5.1 [facility] Comment on above: Performed By: #### L 500.2500, L100.0100 #### [facility] [address] [place], [address] Sodium [Moles/Vol] 142 mmol/L Normal 133-145 [facility] Comment on above: Performed By: #### L 500.2500, L100.0100 #### [facility] [address] [place], [address] Urea nitrogen [Mass/Vol] 27 mg/dL High 4-19 [facility] Comment on above: Performed By: #### L 500.2500, L100.0100 #### [facility] [address] [place], [address] Basophil percentageOrdered B y: Juana Rodriguez on 01-26-2024 Basophils/100 WBC (Bld) 0.1 % 0-1 [facility] CBC W/Diff, Automatedon Absolute Lymph 1.18 X10 3/uL Normal 0.83-4.51 [facility] Comment on above: Performed By: #### L 500.2500, L100.0100 #### [facility] [address] [place], [address] Absolute Neut 8.0 X10 3/uL High 2.0-7.7 [facility] Comment on above: Performed By: #### L 500.2500, L100.0100 #### [facility] [address] [place], [address] Basophils/100 WBC (Bld) 0.1 % Normal 0-1 [facility] Comment on above: Performed By: #### L 500.2500, L100.0100 #### [facility] [address] [place], [address] Eosinophils/100 WBC (Bld) 0.0 % Normal 0-5 [facility] Comment on above: Performed By: #### L 500.2500, L100.0100 #### [facility] [address] [place], [address] Erythrocyte distribution width (RBC) [Ratio] 14.4 % Normal 11.6-14.6 [facility] Comment on above: Performed By: #### L 500.2500, L100.0100 #### [facility] [address] [place], [address] Hematocrit (Bld) [Volume fraction] 41.7 % Normal 40-54 [facility] Comment on above: Performed By: #### L 500.2500, L100.0100 #### [facility] [address] [place], [address] Hemoglobin (Bld) [Mass/Vol] 13.9 g/dL Normal 13.0-16.5 [facility] Comment on above: Performed By: #### L 500.2500, L100.0100 #### [facility] [address] [place], [address] IG% 0.400 Normal 0.0-0.9 [facility] Comment on above: Result Comment: IG% - Immature Granulocytes (promyelocytes, myelocytes and metamyelocytes) > 1% indicates that a LEFT SHIFT is Present. Performed By: #### L 500.2500, L100.0100 #### [facility] [address] [place], [address] Lymphocytes/100 WBC (Bld) 12.4 % Low 19-41 [facility] Comment on above: Performed By: #### L 500.2500, L100.0100 #### [facility] [address] [place], [address] MCH (RBC) [Entitic mass] 28.1 pg Normal 27.0-32.0 [facility] Comment on above: Performed By: #### L 500.2500, L100.0100 #### [facility] [address] [place], [address] MCHC (RBC) [Mass/Vol] 33.3 g/dL Normal 32-36 [facility] Comment on above: Performed By: #### L 500.2500, L100.0100 #### [facility] [address] [place], [address] MCV (RBC) [Entitic vol] 84.2 fL Normal 80-94 [facility] Comment on above: Performed By: #### L 500.2500, L100.0100 #### [facility] [address] [place], [address] Monocytes/100 WBC (Bld) 3.3 % Normal 0-10 [facility] Comment on above: Performed By: #### L 500.2500, L100.0100 #### [facility] [address] [place], [address] Neutrophils/100 WBC (Bld) 83.8 % High 47-70 [facility] Comment on above: Performed By: #### L 500.2500, L100.0100 #### [facility] [address] [place], [address] Nucleated RBC (Bld) [#/Vol] 0 10*3/uL Normal 0-5 [facility] Comment on above: Performed By: #### L 500.2500, L100.0100 #### [facility] [address] [place], [address] Platelet mean volume (Bld) [Entitic vol] 10.4 fL Normal 6.2-12.0 [facility] Comment on above: Performed By: #### L 500.2500, L100.0100 #### [facility] [address] [place], [address] Platelets (Bld) [#/Vol] 232 10*3/uL Normal 150-450 [facility] Comment on above: Performed By: #### L 500.2500, L100.0100 #### [facility] [address] [place], [address] RBC (Bld) [#/Vol] 4.95 10*6/uL Normal 4.6-6.2 [facility] Comment on above: Performed By: #### L 500.2500, L100.0100 #### [facility] [address] [place], [address] RDW SD 43.8 fl Normal 35.1-43.9 [facility] Comment on above: Performed By: #### L 500.2500, L100.0100 #### [facility] [address] [place], [address] WBC (Bld) [#/Vol] 9.5 10*3/uL Normal 4.4-11.0 [facility] Comment on above: Performed By: #### L 500.2500, L100.0100 #### [facility] [address] [place], [place], [address] Carbon dioxide, total [Moles /volume] in Central venous bloodOrdered By: Juana Rodriguez on 01-26-2025 CO2 [Moles/Vol] 23.1 mmol/L 21.0-32.0 [facility] Chloride assayOrdered By: Rodrick Rodriguez on 01-26-2025 Chloride [Moles/Vol] 105 mmol/L 98-108 [facility] Discharge Instructionon Discharge Instruction [facility] Medical Records Department [address] [place] [address] Instructions for Home/Discharge Instructions 01/26/25 1151 MR#: [id number] Acct: [id number] Name: TRE QUIÑONES Imtiaz Rep #: [id number] : 1955 69 From: Juana Rodriguez MD [place]CP: [place] Hospital Status:ADM [place] Discharge Instructions DC O2, [...] Attending Provider: Juana Rodriguez Primary Care Provider: [facility] Instructions Patient Instructions: Asthma Additional Instructions / Restrictions: DISCHARGE INSTRUCTIONS PLEASE READ *Please take this with you to your next doctors appointment* - Please continue to use your breathing treatments at home and follow-up closely with the [place] -You will be discharged on a prednisone [...] Care 01/26/25 1152 Juana Rodriguez MD CC: [facility] Signed Normal [facility] Electrocardiogram reportOrde red By: Omer Wray on 01-26-2025 EKG study [facility] Cardiovascular Services [address] [place] [address] 12 Lead EKG 01/25/25 1119 MR#: [id number] Acct: [id number] Name: TRE QUIÑONES Rep #:[id number] : 1955 69 From: Omer Wray MD Attending Dr: Dr. Juana Rodriguez MD Status: DIS IN Ordering Dr: Raymond Madrid MD Date: 08/16 Location: [facility] Sex: M C Admitted: 01/25/25 Test Reason : Blood Pressure : */* mmHG Vent. Rate : 60 BPM Atrial Rate : 60 BPM P-R Int : 178 ms QRS Dur : 178 ms QT Int : 464 ms P-R-T Axes : * 190 46 degrees QTcB Int : 464 ms AV dual-paced rhythm Abnormal ECG Confirmed by OMER WRAY MD ([id number]), photographic editor HILTON TEMPLE ([id number]) on 01/27/2025 8:28:38 AM Referred By: Confirmed By: OMER WRAY MD 01/27/2528 Date _ Omer Wray MD CC: Dr. Raymond Madrid MD; Dr. Juana Rodriguez MD; [facility] ~ Signed [facility] Work Phone: Eosinophil percentageOrdered By: Juana Rodriguez on 01-26-2025 Eosinophils/100 WBC (Bld) 0.0 % 0-5 [facility] Erythrocyte distribution wid th ratioOrdered By: Juana Rodriguez on 01-26-2025 Erythrocyte distribution width (RBC) [Ratio] 14.4 % 11.6-14.6 [facility] Erythrocyte distribution wid th standard deviationOrdered By: Juana Rodriguez on 01-26-2025 Erythrocyte distribution width (RBC) [Ratio] 43.8 fl 35.1-43.9 [facility] Glomerular filtration rate ( GFR) estimation/1.73 sq m using serum, plasma, or whole bOrdered By: Juana Rodriguez on 01-26-2025 GFR/1.73 sq M.predicted among non-blacks MDRD (S/P/Bld) [Vol rate/Area] 86 mL/min/{1.73_m2} >60 [facility] Comment on above: mL/min/1.73m2 CKD-EP I Creatinine Equation (2020) Hematocrit Auto (Bld) [Volum e fraction]Ordered By: Juana Rodriguez on 01-26-2025 Hematocrit (Bld) [Volume fraction] 41.7 % 40-54 [facility] Hemoglobin measurementOrdere d By: Juana Rodriguez on 01-26-2025 Hemoglobin (Bld) [Mass/Vol] 13.9 g/dL 13.0-16.5 [facility] Immature granulocytes/100 WB C Auto (Bld)Ordered By: Juana Rodriguez on 01-26-2025 Immature granulocytes/100 WBC (Bld) 0.400 % 0.0-0.9 [facility] Comment on above: IG% - Immature Granu locytes (promyelocytes, myelocytes and metamyelocytes) > 1% indicates that a LEFT SHIFT is Present. MCV (mean corpuscular volume ) determinationOrdered By: Juana Rodriguez on 01-26-2025 MCV (RBC) [Entitic vol] 84.2 fL 80-94 [facility] Mean corpuscular hemoglobin (MCH) determinationOrdered By: Juana Rodriguez on 01-26-2025 MCH (RBC) [Entitic mass] 28.1 pg 27.0-32.0 [facility] Mean corpuscular hemoglobin concentration (MCHC) determinationOrdered By: Juana Rodriguez on 01-26-2025 MCHC (RBC) [Mass/Vol] 33.3 g/dL 32-36 [facility] Mean platelet volume determi nationOrdered By: Juana Rodriguez on 01-26-2025 Platelet mean volume (Bld) [Entitic vol] 10.4 fL 6.2-12.0 [facility] Monocyte percentageOrdered B y: Juana Rodriguez on 01-26-2025 Monocytes/100 WBC (Bld) 3.3 % 0-10 [facility] Neutrophil percentageOrdered By: Juana Rodriguez on 01-26-2025 Neutrophils/100 WBC (Bld) 83.8 % High 47-70 [facility] Nucleated red blood cell per centageOrdered By: Juana Rodriguez on 01-26-2025 Nucleated RBC/100 WBC (Bld) [Ratio] 0 % 0-5 [facility] Platelet countOrdered By: Rodrick Rodriguez on 01-26-2025 Platelets (Bld) [#/Vol] 232 10*3/uL 150-450 [facility] Potassium measurement (mass/ volume)Ordered By: Juana Rodriguez on 01-26-2025 Potassium (Unsp spec) [Mass/Vol] 4.8 mmol/L 3.3-5.1 [facility] RBC Auto (Bld) [#/Vol]Ordere d By: Juana Rodriguez on 01-26-2025 RBC (Bld) [#/Vol] 4.95 10*6/uL 4.6-6.2 [facility] Serum creatinine measurement (mass/volume)Ordered By: Juana Rodriguez on 01-26-2025 Creatinine [Mass/Vol] 0.96 mg/dL 0.70-1.20 [facility] Serum glucose measurement (m ass/volume)Ordered By: Juana Rodriguez on 01-26-2025 Glucose [Mass/Vol] 135 mg/dL High 70-99 [facility] Serum or plasma calcium filiberto urement (mass/volume)Ordered By: Juana Rodriguez on 01-26-2025 Calcium [Mass/Vol] 9.7 mg/dL 7.6-11.0 [facility] Serum or plasma urea nitroge n measurement (mass/volume)Ordered By: Juana Rodriguez on 01-26-2025 Urea nitrogen [Mass/Vol] 27 mg/dL High 4-19 [facility] Sodium levelOrdered By: Dayron Rodriguez on 01-26-2025 Sodium [Moles/Vol] 142 mmol/L 133-145 [facility] White blood cell (WBC) count Ordered By: Juana Rodriguez on 01-26-2025 WBC (Bld) [#/Vol] 9.5 10*3/uL 4.4-11.0 [facility] 12 Lead EKGon 01-25-2025 12 Lead EKG [facility] Cardiovascular Services [address] [place] [address] 12 Lead EKG 01/25/25 1119 MR#: [id number] Acct: [id number] Name: TRE QUIÑONES Rep #: [id number] : 1955 69 From: Omer Wray MD Attending Dr: Dr. Juana Rodriguez MD Status: DIS IN Ordering Dr: Raymond Madrid MD Date: 01/25/25 Location: [facility] Sex: M C Admitted: 01/25/25 Test Reason : Blood Pressure : */* mmHG Vent. Rate : 60 BPM Atrial Rate : 60 BPM P-R Int : 178 ms QRS Dur : 178 ms QT Int : 464 ms P-R-T Axes : * 190 46 degrees QTcB Int : 464 ms AV dual-paced rhythm Abnormal ECG Confirmed by OMER WRAY MD ([id number]), photographic editor HILTON TEMPLE ([id number]) on 01/27/2025 8:28:38 AM Referred By: Confirmed By: OMER WRAY MD 01/27/2528 Date Omer Wray MD CC: Dr. Raymond Madrid MD; Dr. Juana Rodriguez MD; [facility] Signed Normal [facility] Basic Metabolic Profile (BMP )on 01-25-2025 BUN/CRE 17.2 RATIO Normal 10-20 [facility] Comment on above: Performed By: #### L 503.7505, L501.4021, L100.0100, L500.2500 #### [facility] [address] [place], [address] Calcium [Mass/Vol] 9.6 mg/dL Normal 7.6-11.0 [facility] Comment on above: Performed By: #### L 503.7505, L501.4021, L100.0100, L500.2500 #### [facility] [address] [place], [address] Chloride [Moles/Vol] 108 mmol/L Normal 98-108 [facility] Comment on above: Performed By: #### L 503.7505, L501.4021, L100.0100, L500.2500 #### [facility] [address] [place], [address] CO2 [Moles/Vol] 25.2 mmol/L Normal 21.0-32.0 [facility] Comment on above: Performed By: #### L 503.7505, L501.4021, L100.0100, L500.2500 #### [facility] [address] [place], [address] Creatinine [Mass/Vol] 0.96 mg/dL Normal 0.70-1.20 [facility] Comment on above: Performed By: #### L 503.7505, L501.4021, L100.0100, L500.2500 #### [facility] [address] [place], [address] GAP 11 Normal 5-15 [facility] Comment on above: Performed By: #### L 503.7505, L501.4021, L100.0100, L500.2500 #### [facility] [address] [place], [address] GFR/1.73 sq M.predicted among non-blacks MDRD (S/P/Bld) [Vol rate/Area] 87 mL/min/{1.73_m2} Normal >60 [facility] Comment on above: Result Comment: mL/m in/1.73m2 CKD-EPI Creatinine Equation (2020) Performed By: #### L 503.7505, L501.4021, L100.0100, L500.2500 #### [facility] [address] [place], [address] Glucose [Mass/Vol] 101 mg/dL High 70-99 [facility] Comment on above: Performed By: #### L 503.7505, L501.4021, L100.0100, L500.2500 #### [facility] [address] [place], [address] Potassium [Moles/Vol] 4.2 mmol/L Normal 3.3-5.1 [facility] Comment on above: Performed By: #### L 503.7505, L501.4021, L100.0100, L500.2500 #### [facility] [address] [place], [address] Sodium [Moles/Vol] 144 mmol/L Normal 133-145 [facility] Comment on above: Performed By: #### L 503.7505, L501.4021, L100.0100, L500.2500 #### [facility] [address] [place], [address] Urea nitrogen [Mass/Vol] 16 mg/dL Normal 4-19 [facility] Comment on above: Performed By: #### L 503.7505, L501.4021, L100.0100, L500.2500 #### [facility] [address] [place], [address] CBC W/Diff, Automatedon 10-0 4-2024 Absolute Lymph 1.27 X10 3/uL Normal 0.83-4.51 [facility] Comment on above: Performed By: #### L 503.7505, L501.4021, L100.0100, L500.2500 #### [facility] [address] [place], [address] Absolute Neut 3.9 X10 3/uL Normal 2.0-7.7 [facility] Comment on above: Performed By: #### L 503.7505, L501.4021, L100.0100, L500.2500 #### [facility] [address] [place], [address] Basophils/100 WBC (Bld) 1.2 % High 0-1 [facility] Comment on above: Performed By: #### L 503.7505, L501.4021, L100.0100, L500.2500 #### [facility] [address] [place], [address] Eosinophils/100 WBC (Bld) 7.3 % High 0-5 [facility] Comment on above: Performed By: #### L 503.7505, L501.4021, L100.0100, L500.2500 #### [facility] [address] [place], [address] Erythrocyte distribution width (RBC) [Ratio] 14.2 % Normal 11.6-14.6 [facility] Comment on above: Performed By: #### L 503.7505, L501.4021, L100.0100, L500.2500 #### [facility] [address] [place], [address] Hematocrit (Bld) [Volume fraction] 41.2 % Normal 40-54 [facility] Comment on above: Performed By: #### L 503.7505, L501.4021, L100.0100, L500.2500 #### [facility] [address] [place], [address] Hemoglobin (Bld) [Mass/Vol] 13.1 g/dL Normal 13.0-16.5 [facility] Comment on above: Performed By: #### L 503.7505, L501.4021, L100.0100, L500.2500 #### [facility] [address] [place], [address] IG% 0.200 Normal 0.0-0.9 [facility] Comment on above: Result Comment: IG% - Immature Granulocytes (promyelocytes, myelocytes and metamyelocytes) > 1% indicates that a LEFT SHIFT is Present. Performed By: #### L 503.7505, L501.4021, L100.0100, L500.2500 #### [facility] [address] [place], [address] Lymphocytes/100 WBC (Bld) 19.7 % Normal 19-41 [facility] Comment on above: Performed By: #### L 503.7505, L501.4021, L100.0100, L500.2500 #### [facility] [address] [place], [address] MCH (RBC) [Entitic mass] 27.5 pg Normal 27.0-32.0 [facility] Comment on above: Performed By: #### L 503.7505, L501.4021, L100.0100, L500.2500 #### [facility] [address] [place], [address] MCHC (RBC) [Mass/Vol] 31.8 g/dL Low 32-36 [facility] Comment on above: Performed By: #### L 503.7505, L501.4021, L100.0100, L500.2500 #### [facility] [address] [place], [address] MCV (RBC) [Entitic vol] 86.4 fL Normal 80-94 [facility] Comment on above: Performed By: #### L 503.7505, L501.4021, L100.0100, L500.2500 #### [facility] [address] [place], [address] Monocytes/100 WBC (Bld) 12.1 % High 0-10 [facility] Comment on above: Performed By: #### L 503.7505, L501.4021, L100.0100, L500.2500 #### [facility] [address] [place], [address] Neutrophils/100 WBC (Bld) 59.5 % Normal 47-70 [facility] Comment on above: Performed By: #### L 503.7505, L501.4021, L100.0100, L500.2500 #### [facility] [address] [place], [address] Nucleated RBC (Bld) [#/Vol] 0 10*3/uL Normal 0-5 [facility] Comment on above: Performed By: #### L 503.7505, L501.4021, L100.0100, L500.2500 #### [facility] [address] [place], [address] Platelet mean volume (Bld) [Entitic vol] 10.2 fL Normal 6.2-12.0 [facility] Comment on above: Performed By: #### L 503.7505, L501.4021, L100.0100, L500.2500 #### [facility] [address] [place], [address] Platelets (Bld) [#/Vol] 204 10*3/uL Normal 150-450 [facility] Comment on above: Performed By: #### L 503.7505, L501.4021, L100.0100, L500.2500 #### [facility] [address] [place], [address] RBC (Bld) [#/Vol] 4.77 10*6/uL Normal 4.6-6.2 [facility] Comment on above: Performed By: #### L 503.7505, L501.4021, L100.0100, L500.2500 #### [facility] [address] [place], [address] RDW SD 45.3 fl High 35.1-43.9 [facility] Comment on above: Performed By: #### L 503.7505, L501.4021, L100.0100, L500.2500 #### [facility] [address] [place], [address] WBC (Bld) [#/Vol] 6.5 10*3/uL Normal 4.4-11.0 [facility] Comment on above: Performed By: #### L 503.7505, L501.4021, L100.0100, L500.2500 #### [facility] [address] [place], [address] Chest PA and Lateralon 10-04 -2025 Chest PA and Lateral [facility] Imaging Services [address] [place] [address] Chest PA and Lateral MR#: [id number] Acct: [id number] Name: TRE QUIÑONES Rep #: [id number] : 1955 M 69 From: Mercedes Jaffe MD PCP: [facility] Status: REG ER Study: Chest PA and Lateral Date of Exam: 01/25/25 Exam# [id number] Ordering Dr: Raymond Madrid MD PROCEDURE: CHEST [...] Cardiomegaly with mild vascular congestion. Reading Location: [facility] CC: Dr. Raymond Madrid MD; [facility] Brim Stiffener: Signed Normal [facility] Emergency Department Summary on 01-25-2025 Emergency Department Summary [facility] Medical Records Department [address] [place] [address] Emergency Department Summary 01/25/25 MR#: [id number] Acct: [id number] Name: TRE QUIÑONES Rep #: [id number] : 1955 69 From: Raymond Madrid MD PCP: [facility] Status:REG ER Location: ED HPI History of [...] Gastrointestinal Gastrointest (more content not included)... Normal [facility] H AND P Exam - [facility] 01-25-2025 H&P Exam - Hospitalist [facility] Medical Records Department [address] [place] [address] H P Exam - Hospitalist 01/25/25 1323 MR#: [id number] Acct: [id number] Name: TRE QUIÑONES Rep #: [id number] : 1955 69 From: Juana Rodriguez MD PCP: [facility] Status:REG ER Location: ED HPI - General General Date of Admission: 01/25/25 Date of Service: 01/25/25 Chief Complaint: SOB HPI Narrative TRE QUIÑONES, is a 69-year-old male with a history of asthma, A-fib on Xarelto, pacemaker placement, mitral and tricuspid valve replacement, Maze procedure, hypertension, JOSÉ MIGUEL who presented to [facility] ED 01/25/25 for several days of increased [...] breath. Patient denies any lower extremity swelling. [facility] Medical History History of pacemaker [...] Former sm (more content not included)... Normal [facility] Influenza virus A and B and SARS-CoV-2 (COVID-19) and Respiratory syncytial virus RNAOrdered By: Raymond Madrid on 01-25-2025 SARS-CoV-2 (COVID-19) RNA ARTIS+probe Ql (Unsp spec) [facility] SARS-CoV-2 (COVID-19) RNA ARTIS+probe Ql (Unsp spec) [facility] L501.4021on 01-25-2025 Trop T High Sen 52 ng/L High <=22 [facility] Comment on above: Result Comment: Crit ical Result(s) Called to: Marie RODRIGUEZ (ER) by: Lenore??Results read back by same. Performed By: #### L 503.7505, L501.4021, L100.0100, L500.2500 #### [facility] [address] [place], [address] M100.678on 01-25-2025 M100.678 Normal Reference Range = Negative FLUABV+SARS-CoV-2+RSV Pnl Resp ARTIS+probe GeneXpert Instrument, PCR method SARS-CoV-2 (COVID 19) Negative INFLUENZA A Negative INFLUENZA B Negative RSV PCR Negative Normal [facility] Comment on above: Performed By: #### M 100.678 #### [facility] [address] [place], [address] Natriuretic peptide.B prohor beny N-Terminal [Mass/volume] in Serum or PlasmaOrdered By: Raymond Madrid on 01-25-2025 Natriuretic peptide.B prohormone N-Terminal [Mass/Vol] 420 pg/mL <900 [facility] Comment on above: Heart Failure Unlike ly: < 300 pg/mLHeart Failure Likely< 50 Years: > 450 pg/mL50-75 Years: > 900 pg/mL>75 Years: > 1800 pg/mL Pro- Brain NATRIURETIC PEPTI Garrett 01-25-2025 Natriuretic peptide B (Bld) [Mass/Vol] 420 pg/mL Normal <=900 [facility] Comment on above: Result Comment: Hear t Failure Unlikely: < 300 pg/mL Heart Failure Likely < 50 Years: > 450 pg/mL 50-75 Years: > 900 pg/mL >75 Years: > 1800 pg/mL Performed By: #### L 503.7505, L501.4021, L100.0100, L500.2500 #### [facility] [address] [place], [address] RESPIRATORY PANEL MOLECULARo n 01-25-2025 [...] Not Detected RSV B Not Detected Normal [facility] Comment on above: Performed By: #### M 100.638 #### [facility] [address] [place], [address] Respiratory pathogens detect ion panel by molecular detection methodOrdered By: Juana Rodriguez on 01-25-2025 Respiratory pathogens DNA and RNA panel ARTIS+probe (Resp) [facility] Respiratory pathogens DNA and RNA panel ARTIS+probe (Resp) [facility] Troponin T HS 2 HRon 025 Trop T High Sen 50 ng/L High <=22 [facility] Comment on above: Performed By: #### L 499.0042 #### [facility] [address] [place], [address] Troponin T HS 4 HRon 025 Trop T High Sen 42 ng/L High <=22 [facility] Comment on above: Performed By: #### M 100.638 #### [facility] [address] [place], [place], [address] Troponin T.cardiac [Mass/vol ume] in Serum or Plasma by High sensitivity methodOrdered By: Raymond Madrid on 01-25-2025 Troponin T.cardiac High sensitivity method [Mass/Vol] 42 ng/L High <22 [facility] Troponin T.cardiac High sensitivity method [Mass/Vol] 50 ng/L High <22 [facility] Troponin T.cardiac High sensitivity method [Mass/Vol] 52 ng/L High <22 [facility] Comment on above: Critical Result(s) C alled to: Marie RODRIGUEZ (ER) by: Lenore Results read back by same. Anion gap in Serum or Plasma Ordered By: Evelyn Deleon on 01-13-2025 Anion gap [Moles/Vol] 13 mmol/L 5- [facility] BUN/creatinine ratioOrdered By: Evelyn Deleon on 01-13-2025 Urea nitrogen/Creatinine [Mass ratio] 28.3 mg/mg High 10- [facility] Bilirubin Test strip Ql (U)O rdered By: Evelyn Deleon on 01-13-2025 Bilirubin Ql (U) Negative Negative [facility] Carbon dioxide, total [Moles /volume] in Central venous bloodOrdered By: Evelyn Deleon on 01-13-2025 CO2 [Moles/Vol] 22.3 mmol/L 21.0-32.0 [facility] Cardiology Visit Reporton Cardiology Visit Report [facility] [address] [place] [address] OFFICE VISIT Date of Service: 01/13/25 MR#: [id number] Acct: [id number] Name: TRE QUIÑONES Rep #: [id number] : 1955 Provider: JOHNNA lira Age/Sex: 69/M Location: [facility] Status: Signed HPI HPI History of Present [...] and flutter. He was sent to the [facility]. The more recent evaluation demonstrated areas of atrial flutter in the tricuspid annulus region. He also subsequently had a permanent pacemaker implanted after his radio frequency ablation in 2017. He had started experiencing more atrial arrhythmias once again and he was sent back to [facility]. It was felt after discussing all the options that the sotalol should be discontinued and he was started on amiodarone. He had been following up at the [facility] due to insurance issues. He had a stress test in 2020. He did have an echocardiogram performed on September 13 at the [facility] and he was recorded to have a moderately dilated left ventricle with estimated ejection fraction of 60 to 65% right ventricle with a pacemaker placed in mitral valve which was normal with severe mitral regurgitation. He had echocardiogram in October 2023 at [facility] that showed ejection fraction of 60% and moderately severe eccentric mitral valve insufficiency. Transesophageal echocardiogram on 11/21/2023 showed severe mitral valve insufficiency. Heart catheterization on 11/21/2023 showed angiographically normal coronary arteries. He was seen with [facility], Dr. Diamond in January 2024. Mitral [...] function 55???5%, mildly dilated right ventricle, #33 [place] mitral valve annuloplasty ring with trace mitral [...] 1 Y FU (PPM F/U LEANN 1:30) Bill Clerk Required: No Accompanied by: Self Is patient [...] 02/14/24 History (more content not included)... Normal [facility] Chloride assayOrdered By: Xena Deleon on 01-13-2025 Chloride [Moles/Vol] 106 mmol/L 98-108 [facility] Erythrocyte distribution wid th ratioOrdered By: Evelyn Deleon on 01-13-2025 Erythrocyte distribution width (RBC) [Ratio] 14.0 % 11.6-14.6 [facility] Erythrocyte distribution wid th standard deviationOrdered By: Evelyn Deleon on 01-13-2025 Erythrocyte distribution width (RBC) [Ratio] 44.0 fl High 35.1-43.9 [facility] Glomerular filtration rate ( GFR) estimation/1.73 sq m using serum, plasma, or whole bOrdered By: Evelyn Deleon on 01-13-2025 GFR/1.73 sq M.predicted among non-blacks MDRD (S/P/Bld) [Vol rate/Area] 85 mL/min/{1.73_m2} >60 [facility] Comment on above: mL/min/1.73m2 CKD-EP I Creatinine Equation (2020) Hematocrit Auto (Bld) [Volum e fraction]Ordered By: Evelyn Deleon on 01-13-2025 Hematocrit (Bld) [Volume fraction] 41.1 % 40-54 [facility] Hemoglobin measurementOrdere d By: Evelyn Deleon on 01-13-2025 Hemoglobin (Bld) [Mass/Vol] 13.2 g/dL 13.0-16.5 [facility] International normalized rat io (INR) calculationOrdered By: Evelyn Deleon on 01-13-2025 INR Coag (Bld) [Relative time] 1.4 {INR} [facility] Ketones Test strip Ql (U)Ord ered By: Evelyn Deleon on 01-13-2025 Ketones Ql (U) Negative Negative [facility] MCV (mean corpuscular volume ) determinationOrdered By: Evelyn Deleon on 01-13-2025 MCV (RBC) [Entitic vol] 85.8 fL 80-94 [facility] Mean corpuscular hemoglobin (MCH) determinationOrdered By: Evelyn Deleon 01-13-2025 MCH (RBC) [Entitic mass] 27.6 pg 27.0-32.0 [facility] Mean corpuscular hemoglobin concentration (MCHC) determinationOrdered By: Evelyn Deleon on 01-13-2025 MCHC (RBC) [Mass/Vol] 32.1 g/dL 32-36 [facility] Mean platelet volume determi nationOrdered By: Evelyn Deleon on 01-13-2025 Platelet mean volume (Bld) [Entitic vol] 10.7 fL 6.2-12.0 [facility] Microscopic analysis of urin e for red blood cells (RBC)Ordered By: Evelyn Deleon on 01-13-2025 Microscopic analysis of urine for red blood cells (RBC) 0 SEEN /hpf 0-5 [facility] Mucus LM Ql (Urine sed)Order ed By: Evelyn Deleon on 01-13-2025 Mucus Ql (Urine sed) 0 SEEN /hpf [facility] Nitrite Test strip Ql (U)Ord ered By: Evelyn Deleon on 01-13-2025 Nitrite Ql (U) Negative Negative [facility] Pacemaker Checkon 01-13-2025 Pacemaker Check [facility] [address] [place] [address] Pacemaker Check Date of Service: 01/13/251737 MR#: [id number] Acct: [id number] Name: TRE QUIÑONES Rep #: [id number] : 1955 From: Jolene Larkin Age/Sex: 69/M [place] [facility] [place] Signed Billing Codes PM Device Codes: 34992 PM Dev Prog Eval, Dual Assessment and Plan Assessment and Plan (1) long-term current use of anticoagulant: Status: Acute (2) Presence of left atrial appendage closure device: Status: Acute Comment: 01/23/2024 (3) S/P Maze operation for atrial fibrillation: Status: Acute Comment: 01/23/2024 (4) Sick sinus syndrome: Status: Chronic (5) Atypical atrial flutter: Status: Chronic Comment: RFA 2005, 2017, 2019 (6) Presence of permanent cardiac pacemaker: Status: Chronic 01/13/25 1747 Date Jolene Henrqiuezignadriano Signature: Date (if applicable) CC: Normal [facility] Platelet countOrdered By: Xena Deleon on 01-13-2025 Platelets (Bld) [#/Vol] 221 10*3/uL 150-450 [facility] Potassium measurement (mass/ volume)Ordered By: Evelyn Deleon on 01-13-2025 Potassium (Unsp spec) [Mass/Vol] 4.3 mmol/L 3.3-5.1 [facility] Protein Test strip Ql (U)Ord ered By: Evelyn Deleon on 01-13-2025 Protein Ql (U) 15 mg/dl High Negative [facility] Prothrombin timeOrdered By: Evelyn Deleon on 01-13-2025 PT Coag (PPP) [Time] 17.9 s High 11.7-14.9 [facility] RBC Auto (Bld) [#/Vol]Ordere d By: Evelyn Deleon on 01-13-2025 RBC (Bld) [#/Vol] 4.79 10*6/uL 4.6-6.2 [facility] Serum creatinine measurement (mass/volume)Ordered By: Evelyn Deleon on 01-13-2025 Creatinine [Mass/Vol] 0.97 mg/dL 0.70-1.20 [facility] Serum glucose measurement (m ass/volume)Ordered By: Evelyn Deleon on 01-13-2025 Glucose [Mass/Vol] 105 mg/dL High 70-99 [facility] Serum or plasma calcium filiberto urement (mass/volume)Ordered By: Evelyn Deleon on 01-13-2025 Calcium [Mass/Vol] 9.5 mg/dL 7.6-11.0 [facility] Serum or plasma urea nitroge n measurement (mass/volume)Ordered By: Evelyn Deleon on 01-13-2025 Urea nitrogen [Mass/Vol] 28 mg/dL High 4-19 [facility] Sodium levelOrdered By: Evelyn Deleon on 01-13-2025 Sodium [Moles/Vol] 141 mmol/L 133-145 [facility] Squamous epithelial cells de tection in urine sediment by light microscopyOrdered By: Evelyn Deleon on 01-13-2025 Epithelial cells.squamous LM Ql (Urine sed) 0-5 SEEN /hpf 0-5 [facility] Urine clarityOrdered By: Ryan Deleon on 01-13-2025 Clarity (U) Clear Clear [facility] Urine color determinationOrd ered By: Evelyn Deleon on 01-13-2025 Color (U) Straw Yellow [facility] Urine glucose detectionOrder ed By: Evelyn Deleon on 01-13-2025 Glucose Ql (U) 1000 mg/dl High Normal [facility] Urine leukocyte esterase det ection by dipstickOrdered By: Evelyn Deleon on 01-13-2025 Leukocyte esterase Test strip Ql (U) Negative Negative [facility] Urine pHOrdered By: Evelyn lira on 01-13-2025 pH (U) 6.0 [pH] 5.0 - 8.0 [facility] Urine sediment bacteria coun t by microscopy (number/high power field)Ordered By: Evelyn Deleon on 01-13-2025 Bacteria LM.HPF (Urine sed) [#/Area] 0 /[HPF] None Seen [facility] Urine specific gravity measu rementOrdered By: Evelyn Deleon on 01-13-2025 Specific gravity (U) [Rel density] 1.015 1.002-1.030 [facility] Urine urobilinogen measureme ntOrdered By: Evelyn Deleon on 01-13-2025 Urobilinogen Ql (U) Normal mg/dl Normal [facility] White blood cell (WBC) count Ordered By: Evelyn Deleon on 01-13-2025 WBC (Bld) [#/Vol] 8.0 10*3/uL 4.4-11.0 [facility] White blood cell countOrdere d By: Evelyn Deleon on 01-13-2025 White blood cell count 0-5 SEEN /hpf 0-5 [facility] Relevant diagnostic tests/la boratory data Narrativeon 12-16-2024 Fall risk assessment no [employer] Work Phone: MEDS REVIEW Documentation of current medications (procedure) [employer] Work Phone: MEDS REVIEWD Medications reviewed without changes [employer] Work Phone: MRI HX of the right ankle o n 12/12/2024 at [facility] Work Phone: XRAY HX on 11/06/2024 [facility] Work Phone: MRI ANKLE WO IVCON RTon 11-23 MRI ANKLE WO IVCON RT * * *Final Report* * * DATE OF EXAM: Dec 12 2024 11:30AM [facility] 0164 - MRI ANKLE WO IVCON RT [...] brevis tendon. 2. Mild distal Achilles tendinosis. Brim Stiffener: PSCB Transcribe Date/Time: Dec 16 2024 10:18A Dictated by : VALERIE HAM MD This examination was interpreted and the report reviewed and electronically signed by: VALERIE HAM MD on Dec 16 2024 10:25AM EST [id number] Normal [facility] Office Visiton 11-01-2024 Follow-up visit [id number] Tre Quiñones 1955 M Date Provider Department Center 11/01/2024 43962-JJCLPIUDENNY CIFUENTES [facility] URO None No family history on file Level of Service:86176 [place] OFFICE/OUTPATIENT ESTABLISHED MOD MDM 30 MIN Reason for Visit and Comments: Other [0] - Annual follow up, medication refills Denies uti symptoms, denies worsening or new urinary concerns Normal [facility] Progress Noteon 11-01-2024 Progress Note Denny Cifuentes [...] Judgment: Judgment normal. LABS: 07/01/2024: PSA: 1.388 ([place]) Radiology: Impression/Plan Tre was seen today for [...] [3] No family history on file. Normal [facility] Echo Complete W/ Contraston 10-24-2024 Echo Complete W/ Contrast [facility] [address] [place] [address] Echo Complete W/ Contrast 10/24/24 0555 MR#: [id number] Acct: [id number] Name: TRE QUIÑONES Rep #: [id number] : 1955 69 From: Omer Wray MD Attending Dr: Evelyn Deleon FORMULA ROOM WORKER-C Status: REG CLI Ordering Dr: Evelyn Deleon FORMULA ROOM WORKER FORMULA ROOM WORKER-C Date: 10/24/24 Location: [facility] Sex: M C Admitted: Reason [...] mmHg. Ordering Physician: Evelyn Deleon Referring Physician: [facility] Performed By: Sunshine Esquivel RDCS, RVT 10/24/24 1231 Date Omer Wray MD CC: FORMULA ROOM WORKER-C Evelyn Deleon; [facility] Date Dictated: 10/24/2455 Date Transcribed: 10/24/24 123 Brim Stiffener: Signed Normal [facility] Echocardiogram study reportO rdered By: Omer Wray on 10-24-2024 Study report [facility] [address] [place] [address] Echo Complete W/ Contrast 10/24/24554 MR#: [id number] Acct: [id number] Name: TRE QUIÑONES Rep #:[id number] : 1955 69 From: Omer Kitchen Attending Dr: JOHNNA [facility] tus: REG CLI Ordering Dr: Evelyn Deleon NP Date: 10/24/24 Location: [facility] Sex: M C Admitted: Reason [...] mmHg. Ordering Physician: Evelyn Deleon Referring Physician: [facility] Performed By: Sunshine Esquivel, JUAN, RVT 10/24/24 1231 Date _ Omer Wray MD CC: JOHNNA Deleon; [facility] ~ Date Dictated: 10/24/24554 Date Transcribed: 10/24/24 1231 Brim Stiffener: Signed [facility] Work Phone: 36on 10-07-2024 36 TE. Pt last OV 10/15/21, requesting refill Cialis. Appt scheduled 11/01 @ [address] [place] [address]. Pt confirms d/t/l. Normal [facility] Anion gap in Serum or Plasma Ordered By: Evelyn Deleon on 09-18-2024 Anion gap [Moles/Vol] 10 mmol/L - [facility] BUN/creatinine ratioOrdered By: Evelyn Deleon on 09-18-2024 Urea nitrogen/Creatinine [Mass ratio] 28.2 mg/mg High 10- [facility] Basic Metabolic Profile (BMP )on 09-18-2024 BUN/CRE 28.2 RATIO High 02-10 [facility] Comment on above: Performed By: #### Almas 100.546 #### [facility] [address] [place], [address] Calcium [Mass/Vol] 9.4 mg/dL Normal 7.6-11.0 [facility] Comment on above: Performed By: #### Almas 100.368 #### [facility] [address] [place], [address] Chloride [Moles/Vol] 107 mmol/L Normal 98-108 [facility] Comment on above: Performed By: #### M 100.638 #### [facility] [address] [place], [address] CO2 [Moles/Vol] 24.3 mmol/L Normal 21.0-32.0 [facility] Comment on above: Performed By: #### M 100.638 #### [facility] [address] [place], [address] Creatinine [Mass/Vol] 0.92 mg/dL Normal 0.70-1.20 [facility] Comment on above: Performed By: #### M 100.638 #### [facility] [address] [place], [address] GAP 10 Normal 5-15 [facility] Comment on above: Performed By: #### M 100.638 #### [facility] [address] [place], [address] GFR/1.73 sq M.predicted among non-blacks MDRD (S/P/Bld) [Vol rate/Area] 91 mL/min/{1.73_m2} Normal >60 [facility] Comment on above: Result Comment: mL/m in/1.73m2 CKD-EPI Creatinine Equation (2020) Performed By: #### M 100.638 #### [facility] [address] [place], [address] Glucose [Mass/Vol] 95 mg/dL Normal 70-99 [facility] Comment on above: Performed By: #### M 100.638 #### [facility] [address] [place], [address] Potassium [Moles/Vol] 4.1 mmol/L Normal 3.3-5.1 [facility] Comment on above: Performed By: #### M 100.638 #### [facility] [address] [place], [address] Sodium [Moles/Vol] 141 mmol/L Normal 133-145 [facility] Comment on above: Performed By: #### M 100.638 #### [facility] [address] [place], [address] Urea nitrogen [Mass/Vol] 26 mg/dL High 4-19 [facility] Comment on above: Performed By: #### M 100.638 #### [facility] [address] [place], [place], [address] Carbon dioxide, total [Moles /volume] in Central venous bloodOrdered By: Evelyn Deleon on 09-18-2024 CO2 [Moles/Vol] 24.3 mmol/L 21.0-32.0 [facility] Cardiology Visit Reporton Cardiology Visit Report [facility] [address] [place], [place] [address] OFFICE VISIT Date of Service: 09/18/24 MR#: [id number] Acct: [id number] Name: TRE QUIÑONES Rep #: [id number] : 1955 Provider: JOHNNA lira Age/Sex: 69/M Location: [facility] Status: Signed HPI HPI History of Present [...] and flutter. He was sent to the [facility]. The more recent evaluation demonstrated areas of atrial flutter in the tricuspid annulus region. He also subsequently had a permanent pacemaker implanted after his radio frequency ablation in 2018. He had started experiencing more atrial arrhythmias once again and he was sent back to [facility]. It was felt after discussing all the options that the sotalol should be discontinued and he was started on amiodarone. He had been following up at the [facility] due to insurance issues. He had a stress test in 2020. He did have an echocardiogram performed on September 13 at the [facility] and he was recorded to have a moderately dilated left ventricle with estimated ejection fraction of 60 to 65% right ventricle with a pacemaker placed in mitral valve which was normal with severe mitral regurgitation. He had echocardiogram in October 2023 at [facility] that showed ejection fraction of 60% and moderately severe eccentric mitral valve insufficiency. Transesophageal echocardiogram on 11/21/2023 showed severe mitral valve insufficiency. Heart catheterization on 11/21/2023 showed angiographically normal coronary arteries. He was seen with [facility], Dr. Diamond in January 2024. Mitral [...] NIBP Intake Visit Reasons: 3 M FU Bill Clerk Required: No Is patient in pain?: No [...] Pain) empaglifloz (more content not included)... Normal [facility] Chloride assayOrdered By: Xena Deleon on 09-18-2024 Chloride [Moles/Vol] 107 mmol/L 98-108 [facility] Glomerular filtration rate ( GFR) estimation/1.73 sq m using serum, plasma, or whole bOrdered By: Evelyn Deleon on 09-18-2024 GFR/1.73 sq M.predicted among non-blacks MDRD (S/P/Bld) [Vol rate/Area] 91 mL/min/{1.73_m2} >60 [facility] Comment on above: mL/min/1.73m2 CKD-EP I Creatinine Equation (2020) L503.7505on 09-18-2024 Natriuretic peptide B (Bld) [Mass/Vol] 538 pg/mL Normal <=900 [facility] Comment on above: Result Comment: Hear t Failure Unlikely: < 300 pg/mL Heart Failure Likely < 50 Years: > 450 pg/mL 50-75 Years: > 900 pg/mL >75 Years: > 1800 pg/mL Performed By: #### M 100.638 #### [facility] [address] [place], [address] Natriuretic peptide.B prohor beny N-Terminal [Mass/volume] in Serum or PlasmaOrdered By: Evelyn Deleon on 09-18-2024 Natriuretic peptide.B prohormone N-Terminal [Mass/Vol] 538 pg/mL <900 [facility] Comment on above: Heart Failure Unlike ly: < 300 pg/mLHeart Failure Likely< 50 Years: > 450 pg/mL50-75 Years: > 900 pg/mL>75 Years: > 1800 pg/mL Potassium measurement (mass/ volume)Ordered By: Evelyn Deleon on 09-18-2024 Potassium (Unsp spec) [Mass/Vol] 4.1 mmol/L 3.3-5.1 [facility] Serum creatinine measurement (mass/volume)Ordered By: Evelyn Deleon on 09-18-2024 Creatinine [Mass/Vol] 0.92 mg/dL 0.70-1.20 [facility] Serum glucose measurement (m ass/volume)Ordered By: Evelyn Deleon on 09-18-2024 Glucose [Mass/Vol] 95 mg/dL 70-99 [facility] Serum or plasma calcium filiberto urement (mass/volume)Ordered By: Evelyn Deleon on 09-18-2024 Calcium [Mass/Vol] 9.4 mg/dL 7.6-11.0 [facility] Serum or plasma urea nitroge n measurement (mass/volume)Ordered By: Evelyn Deleon on 09-18-2024 Urea nitrogen [Mass/Vol] 26 mg/dL High 4-19 [facility] Sodium levelOrdered By: Evelyn Deleon on 09-18-2024 Sodium [Moles/Vol] 141 mmol/L 133-145 [facility] Absolute lymphocyte countOrd ered By: Qamar Rosario on 08-13-2024 Lymphocytes Auto (Unsp spec) [#/Vol] 1.26 10*3/uL 0.83-4.51 [facility] Absolute neutrophil countOrd ered By: Qamar Rosario on 08-13-2024 Neutrophils (Bld) [#/Vol] 3.7 10*3/uL 2.0-7.7 [facility] Anion gap in Serum or Plasma Ordered By: Qamar Rosario on 08-13-2024 Anion gap [Moles/Vol] 9 mmol/L 5- [facility] Automated lymphocyte count a s percentage of total leukocytesOrdered By: Qamar Rosario on 08-13-2024 Lymphocytes/100 WBC Auto (Unsp spec) 20.3 % - [facility] BUN/creatinine ratioOrdered By: Qamar Rosario on 08-13-2024 Urea nitrogen/Creatinine [Mass ratio] 18.5 mg/mg 10- [facility] Basic Metabolic Profile (BMP )on 08-13-2024 BUN/CRE 18.5 RATIO Normal - [facility] Comment on above: Performed By: #### M 100.678 #### [facility] [address] [place], [address] Calcium [Mass/Vol] 9.3 mg/dL Normal 7.6-11.0 [facility] Comment on above: Performed By: #### M 100.678 #### [facility] [address] [place], [address] Chloride [Moles/Vol] 105 mmol/L Normal 98-108 [facility] Comment on above: Performed By: #### M 100.678 #### [facility] [address] [place], [address] CO2 [Moles/Vol] 25.9 mmol/L Normal 21.0-32.0 [facility] Comment on above: Performed By: #### M 100.678 #### [facility] [address] [place], [address] Creatinine [Mass/Vol] 1.05 mg/dL Normal 0.70-1.20 [facility] Comment on above: Performed By: #### M 100.678 #### [facility] [address] [place], [address] ECRCL 100.31 ml/min Normal 50-250 [facility] Comment on above: Performed By: #### M 100.678 #### [facility] [address] [place], [address] GAP 9 Normal 5-15 [facility] Comment on above: Performed By: #### M 100.678 #### [facility] [address] [place], [address] GFR/1.73 sq M.predicted among non-blacks MDRD (S/P/Bld) [Vol rate/Area] 78 mL/min/{1.73_m2} Normal >60 [facility] Comment on above: Result Comment: mL/m in/1.73m2 CKD-EPI Creatinine Equation (2020) Performed By: #### M 100.678 #### [facility] [address] [place], [address] Glucose [Mass/Vol] 125 mg/dL High 70-99 [facility] Comment on above: Performed By: #### M 100.678 #### [facility] [address] [place], [address] Potassium [Moles/Vol] 4.3 mmol/L Normal 3.3-5.1 [facility] Comment on above: Performed By: #### M 100.678 #### [facility] [address] [place], [address] Sodium [Moles/Vol] 140 mmol/L Normal 133-145 [facility] Comment on above: Performed By: #### M 100.678 #### [facility] [address] [place], [address] Urea nitrogen [Mass/Vol] 19 mg/dL Normal 4-19 [facility] Comment on above: Performed By: #### M 100.678 #### [facility] [address] [place], [address] Basophil percentageOrdered B y: Qamar Rosario on 08-13-2024 Basophils/100 WBC (Bld) 1.3 % High 0-1 [facility] CBC W/Diff, Automatedon 07-24 Absolute Lymph 1.26 X10 3/uL Normal 0.83-4.51 [facility] Comment on above: Performed By: #### M 100.638 #### [facility] [address] [place], [address] Absolute Neut 3.7 X10 3/uL Normal 2.0-7.7 [facility] Comment on above: Performed By: #### M 100.638 #### [facility] [address] [place], [address] Basophils/100 WBC (Bld) 1.3 % High 0-1 [facility] Comment on above: Performed By: #### M 100.638 #### [facility] [address] [place], [address] Eosinophils/100 WBC (Bld) 6.1 % High 0-5 [facility] Comment on above: Performed By: #### M 100.638 #### [facility] [address] [place], [address] Erythrocyte distribution width (RBC) [Ratio] 15.3 % High 11.6-14.6 [facility] Comment on above: Performed By: #### M 100.638 #### [facility] [address] [place], [address] Hematocrit (Bld) [Volume fraction] 38.9 % Low 40-54 [facility] Comment on above: Performed By: #### M 100.638 #### [facility] [address] [place], [address] Hemoglobin (Bld) [Mass/Vol] 12.3 g/dL Low 13.0-16.5 [facility] Comment on above: Performed By: #### M 100.638 #### [facility] [address] [place], [address] IG% 0.600 Normal 0.0-0.9 [facility] Comment on above: Result Comment: IG% - Immature Granulocytes (promyelocytes, myelocytes and metamyelocytes) > 1% indicates that a LEFT SHIFT is Present. Performed By: #### M 100.638 #### [facility] [address] [place], [address] Lymphocytes/100 WBC (Bld) 20.3 % Normal 19-41 [facility] Comment on above: Performed By: #### M 100.638 #### [facility] [address] [place], [address] MCH (RBC) [Entitic mass] 26.7 pg Low 27.0-32.0 [facility] Comment on above: Performed By: #### M 100.638 #### [facility] [address] [place], [address] MCHC (RBC) [Mass/Vol] 31.6 g/dL Low 32-36 [facility] Comment on above: Performed By: #### M 100.638 #### [facility] [address] [place], [address] MCV (RBC) [Entitic vol] 84.6 fL Normal 80-94 [facility] Comment on above: Performed By: #### M 100.638 #### [facility] [address] [place], [address] Monocytes/100 WBC (Bld) 12.1 % High 0-10 [facility] Comment on above: Performed By: #### M 100.638 #### [facility] [address] [place], [address] Neutrophils/100 WBC (Bld) 59.6 % Normal 47-70 [facility] Comment on above: Performed By: #### M 100.638 #### [facility] [address] [place], [address] Nucleated RBC (Bld) [#/Vol] 0 10*3/uL Normal 0-5 [facility] Comment on above: Performed By: #### M 100.638 #### [facility] [address] [place], [address] Platelet mean volume (Bld) [Entitic vol] 10.7 fL Normal 6.2-12.0 [facility] Comment on above: Performed By: #### M 100.638 #### [facility] [address] [place], [address] Platelets (Bld) [#/Vol] 189 10*3/uL Normal 150-450 [facility] Comment on above: Performed By: #### M 100.638 #### [facility] [address] [place], [address] RBC (Bld) [#/Vol] 4.60 10*6/uL Normal 4.6-6.2 [facility] Comment on above: Performed By: #### M 100.638 #### [facility] [address] [place], [address] RDW SD 46.9 fl High 35.1-43.9 [facility] Comment on above: Performed By: #### M 100.638 #### [facility] [address] [place], [address] WBC (Bld) [#/Vol] 6.2 10*3/uL Normal 4.4-11.0 [facility] Comment on above: Performed By: #### M 100.638 #### [facility] [address] [place], [address] Carbon dioxide, total [Moles /volume] in Central venous bloodOrdered By: Qamar Rosario on 08-13-2024 CO2 [Moles/Vol] 25.9 mmol/L 21.0-32.0 [facility] Chest PA and Lateralon 08-13 Chest PA and Lateral [facility] Imaging Services [address] [place] [address] Chest PA and Lateral MR#: [id number] Acct: [id number] Name: QUIÑONESTRE Rep #: [id number] : 1955 M 69 From: Mikaela Rosario MD PCP: [facility] Status: REG ER Study: Chest PA and Lateral Date of Exam: 08/13/24 Exam# [id number] Ordering Dr: Qamar Rosario DO EXAM: XR [...] cannot be excluded. Reading [facility] CC: Dr. Qamar Rosario DO; [facility] Brim Stiffener: Signed Normal [facility] Chloride assayOrdered By: Kishan Rosario on 08-13-2024 Chloride [Moles/Vol] 105 mmol/L 98-108 [facility] Emergency Department Summary on 08-13-2024 Emergency Department Summary [facility] Medical Records Department [address] [place] [address] Emergency Department Summary 08/13/24 MR#: [id number] Acct: [id number] Name: TRE QUIÑONES Rep #: [id number] : 1955 69 From: Qamar Carroll [place]CP: [place] [facility] Status:DEP ER Location: ED HPI History [...] or weakness (more content not included)... Normal [facility] Eosinophil percentageOrdered By: Qamar Rosario on 08-13-2024 Eosinophils/100 WBC (Bld) 6.1 % High 0-5 [facility] Erythrocyte distribution wid th ratioOrdered By: Qamar Rosario on 08-13-2024 Erythrocyte distribution width (RBC) [Ratio] 15.3 % High 11.6-14.6 [facility] Erythrocyte distribution wid th standard deviationOrdered By: Qamar Rosario on 08-13-2024 Erythrocyte distribution width (RBC) [Ratio] 46.9 fl High 35.1-43.9 [facility] Glomerular filtration rate ( GFR) estimation/1.73 sq m using serum, plasma, or whole bOrdered By: Qamar Rosario on 08-13-2024 GFR/1.73 sq M.predicted among non-blacks MDRD (S/P/Bld) [Vol rate/Area] 78 mL/min/{1.73_m2} >60 [facility] Comment on above: mL/min/1.73m2 CKD-EP I Creatinine Equation (2020) Hematocrit Auto (Bld) [Volum e fraction]Ordered By: Qamar Rosario on 08-13-2024 Hematocrit (Bld) [Volume fraction] 38.9 % Low 40-54 [facility] Hemoglobin measurementOrdere d By: Qamar Rosario on 08-13-2024 Hemoglobin (Bld) [Mass/Vol] 12.3 g/dL Low 13.0-16.5 [facility] Immature granulocytes/100 WB C Auto (Bld)Ordered By: Qamar Rosario on 08-13-2024 Immature granulocytes/100 WBC (Bld) 0.600 % 0.0-0.9 [facility] Comment on above: IG% - Immature Granu locytes (promyelocytes, myelocytes and metamyelocytes) > 1% indicates that a LEFT SHIFT is Present. MCV (mean corpuscular volume ) determinationOrdered By: Qamar Rosario on 08-13-2024 MCV (RBC) [Entitic vol] 84.6 fL 80-94 [facility] Mean corpuscular hemoglobin (MCH) determinationOrdered By: Qamar Rosario on 08-13-2024 MCH (RBC) [Entitic mass] 26.7 pg Low 27.0-32.0 [facility] Mean corpuscular hemoglobin concentration (MCHC) determinationOrdered By: Qamar Rosario on 08-13-2024 MCHC (RBC) [Mass/Vol] 31.6 g/dL Low 32-36 [facility] Mean platelet volume determi nationOrdered By: Qamar Rosario on 08-13-2024 Platelet mean volume (Bld) [Entitic vol] 10.7 fL 6.2-12.0 [facility] Monocyte percentageOrdered B y: Qamar Rosario on 08-13-2024 Monocytes/100 WBC (Bld) 12.1 % High 0-10 [facility] Neutrophil percentageOrdered By: Qamar Rosario on 08-13-2024 Neutrophils/100 WBC (Bld) 59.6 % 47-70 [facility] Nucleated red blood cell per centageOrdered By: Qamar Rosario on 08-13-2024 Nucleated RBC/100 WBC (Bld) [Ratio] 0 % 0-5 [facility] Platelet countOrdered By: Kishan Rosario on 08-13-2024 Platelets (Bld) [#/Vol] 189 10*3/uL 150-450 [facility] Potassium measurement (mass/ volume)Ordered By: Qamar Rosario on 08-13-2024 Potassium (Unsp spec) [Mass/Vol] 4.3 mmol/L 3.3-5.1 [facility] RBC Auto (Bld) [#/Vol]Ordere d By: Qamar Rosario on 08-13-2024 RBC (Bld) [#/Vol] 4.60 10*6/uL 4.6-6.2 [facility] Serum creatinine measurement (mass/volume)Ordered By: Qamar Rosario on 08-13-2024 Creatinine [Mass/Vol] 1.05 mg/dL 0.70-1.20 [facility] Serum glucose measurement (m ass/volume)Ordered By: Qamar Rosario on 08-13-2024 Glucose [Mass/Vol] 125 mg/dL High 70-99 [facility] Serum or plasma calcium filiberto urement (mass/volume)Ordered By: Qamar Rosario on 08-13-2024 Calcium [Mass/Vol] 9.3 mg/dL 7.6-11.0 [facility] Serum or plasma urea nitroge n measurement (mass/volume)Ordered By: aQmar Rosario on 08-13-2024 Urea nitrogen [Mass/Vol] 19 mg/dL 4-19 [facility] Sodium levelOrdered By: Qamar Rosario on 08-13-2024 Sodium [Moles/Vol] 140 mmol/L 133-145 [facility] White blood cell (WBC) count Ordered By: Qamar Rosario on 08-13-2024 WBC (Bld) [#/Vol] 6.2 10*3/uL 4.4-11.0 [facility] Transferrinon 05-16-2024 Transferrin [Mass/Vol] 345 mg/dL High 177-329 [facility] Comment on above: Result Comment: Perf ormed at: CB - [facility] [address] [id number] Braided Band Assembler: Ignacio Clayton PhD, Phone: [phone] Performed By: #### M 100.638 #### [facility] [address] [facility]. [place], [place], [id number] Basic Metabolic Profile (BMP )on 05-15-2024 BUN/CRE 20.2 RATIO High 10-20 [facility] Comment on above: Performed By: #### M 100.638 #### [facility] [address] [place], [place], [id number] CA,Total 9.6 mg/dL Normal 8.5-10.1 [facility] Comment on above: Performed By: #### M 100.638 #### [facility] [address] [place], [place], [id number] Chloride [Moles/Vol] 104 mmol/L Normal 98-107 [facility] Comment on above: Performed By: #### M 100.638 #### [facility] [address] [place], [address] CO2 [Moles/Vol] 29.0 mmol/L Normal 21.0-32.0 [facility] Comment on above: Performed By: #### M 100.638 #### [facility] [address] [place], [address] Creatinine [Mass/Vol] 1.24 mg/dL Normal 0.70-1.30 [facility] Comment on above: Result Comment: The validity of the calculated GFR GFRAA in patients over 70 years has not been determined. Clinical correlation is essential. Performed By: #### M 100.638 #### [facility] [address] [place], [address] EST GFR - AA 75 mL/min Normal >60 [facility] Comment on above: Result Comment: Afri can [place] GFR Calc Performed By: #### M 100.638 #### [facility] [address] [place], [address] GAP 5 Normal 5-15 [facility] Comment on above: Performed By: #### M 100.638 #### [facility] [address] [place], [address] GFR/1.73 sq M.predicted among non-blacks MDRD (S/P/Bld) [Vol rate/Area] 62 mL/min/{1.73_m2} Normal >60 [facility] Comment on above: Result Comment: Non- GFR Calc Performed By: #### M 100.638 #### [facility] [address] [place], [address] Glucose [Mass/Vol] 96 mg/dL Normal 74-106 [facility] Comment on above: Performed By: #### M 100.638 #### [facility] [address] [place], [address] Potassium [Moles/Vol] 4.2 mmol/L Normal 3.5-5.1 [facility] Comment on above: Performed By: #### M 100.638 #### [facility] [address] [place], [address] Sodium [Moles/Vol] 138 mmol/L Normal 136-145 [facility] Comment on above: Performed By: #### M 100.638 #### [facility] [address] [place], [address] Urea nitrogen [Mass/Vol] 25 mg/dL High 7-18 [facility] Comment on above: Performed By: #### M 100.638 #### [facility] [address] [place], [address] CBC W/Diff, Automatedon 04-25 Absolute Lymph 1.89 X10 3/uL Normal 0.83-4.51 [facility] Comment on above: Performed By: #### M 100.638 #### [facility] [address] [place], [address] Absolute Neut 3.6 X10 3/uL Normal 2.0-7.7 [facility] Comment on above: Performed By: #### M 100.638 #### [facility] [address] [place], [address] Basophils/100 WBC (Bld) 1.6 % High 0-1 [facility] Comment on above: Performed By: #### M 100.638 #### [facility] [address] [place], [address] Eosinophils/100 WBC (Bld) 3.3 % Normal 0-5 [facility] Comment on above: Performed By: #### M 100.638 #### [facility] [address] [place], [address] Erythrocyte distribution width (RBC) [Ratio] 15.2 % High 11.6-14.6 [facility] Comment on above: Performed By: #### M 100.638 #### [facility] [address], [address] Hematocrit (Bld) [Volume fraction] 42.9 % Normal 40-54 [facility] Comment on above: Performed By: #### M 100.638 #### [facility] [address] [place], [address] Hemoglobin (Bld) [Mass/Vol] 13.3 g/dL Normal 13.0-16.5 [facility] Comment on above: Performed By: #### M 100.638 #### [facility] [address] [place], [address] IG% 0.200 Normal 0.0-0.9 [facility] Comment on above: Result Comment: IG% - Immature Granulocytes (promyelocytes, myelocytes and metamyelocytes) > 1% indicates that a LEFT SHIFT is Present. Performed By: #### M 100.638 #### [facility] [address] [place], [address] Lymphocytes/100 WBC (Bld) 29.6 % Normal 19-41 [facility] Comment on above: Performed By: #### M 100.638 #### [facility] [address] [place], [address] MCH (RBC) [Entitic mass] 25.5 pg Low 27.0-32.0 [facility] Comment on above: Performed By: #### M 100.638 #### [facility] [address] [place], [address] MCHC (RBC) [Mass/Vol] 31.0 g/dL Low 32-36 [facility] Comment on above: Performed By: #### M 100.638 #### [facility] [address] [place], [address] MCV (RBC) [Entitic vol] 82.3 fL Normal 80-94 [facility] Comment on above: Performed By: #### M 100.638 #### [facility] [address] [place], [address] Monocytes/100 WBC (Bld) 8.9 % Normal 0-10 [facility] Comment on above: Performed By: #### M 100.638 #### [facility] [address] [place], [address] Neutrophils/100 WBC (Bld) 56.4 % Normal 47-70 [facility] Comment on above: Performed By: #### M 100.638 #### [facility] [address] [place], [address] Nucleated RBC (Bld) [#/Vol] 0 10*3/uL Normal 0-5 [facility] Comment on above: Performed By: #### M 100.638 #### [facility] [address] [place], [address] Platelet mean volume (Bld) [Entitic vol] 10.8 fL Normal 6.2-12.0 [facility] Comment on above: Performed By: #### M 100.638 #### [facility] [address] [place], [address] Platelets (Bld) [#/Vol] 259 10*3/uL Normal 150-450 [facility] Comment on above: Performed By: #### M 100.638 #### [facility] [address] [place], [address] RBC (Bld) [#/Vol] 5.21 10*6/uL Normal 4.6-6.2 [facility] Comment on above: Performed By: #### M 100.638 #### [facility] [address] [place], [place], [address] RDW SD 45.8 fl High 35.1-43.9 [facility] Comment on above: Performed By: #### M 100.638 #### [facility] [address] [place], [place], [address] WBC (Bld) [#/Vol] 6.4 10*3/uL Normal 4.4-11.0 [facility] Comment on above: Performed By: #### M 100.638 #### [facility] [address] [place], [place], [address] Cardiology Visit Reporton Cardiology Visit Report [facility] [address] [place], [place] [address] OFFICE VISIT Date of Service: 05/15/24 MR#: [id number] Acct: [id number] Name: TRE QUIÑONES Rep #: [id number] : 1955 Provider: JOHNNA lira Age/Sex: 69/M Location: [facility] Status: Signed HPI HPI History of Present [...] and flutter. He was sent to the [facility]. The more recent evaluation demonstrated areas of atrial flutter in the tricuspid annulus region. He also subsequently had a permanent pacemaker implanted after his radio frequency ablation in 2018. He had started experiencing more atrial arrhythmias once again and he was sent back to [facility]. It was felt after discussing all the options that the sotalol should be discontinued and he was started on amiodarone. He had been following up at the [facility] due to insurance issues. He had a stress test in 2020. He did have an echocardiogram performed on September 13 at the [facility] and he was recorded to have a moderately dilated left ventricle with estimated ejection fraction of 60 to 65% right ventricle with a pacemaker placed in mitral valve which was normal with severe mitral regurgitation. He had echocardiogram in October 2023 at [facility] that showed ejection fraction of 60% and moderately severe eccentric mitral valve insufficiency. Transesophageal echocardiogram on 11/21/2023 showed severe mitral valve insufficiency. Heart catheterization on 11/21/2023 showed angiographically normal coronary arteries. He was seen with [facility], Dr. Diamond in January 2024. Mitral [...] NIBP Intake Visit Reasons: 6 M FU Bill Clerk Required: No Accompanied by: Is patient in [...] unit) cap (more content not included)... Normal [facility] Ferritinon 05-15-2024 Ferritin [Mass/Vol] 22 ng/mL Low 26-388 [facility] Comment on above: Performed By: #### M 100.638 #### [facility] [address] [place], [address] Ironon 05-15-2024 Iron [Mass/Vol] 46 ug/dL Low 65-175 [facility] Comment on above: Performed By: #### M 100.638 #### [facility] [address] [place], [address] Iron Binding Capacity,Totalo n 05-15-2024 TIBC 416 ug/dL Normal 250-450 [facility] Comment on above: Performed By: #### M 100.638 #### [facility] [address], [address] Chest PA and Lateralon 04-18 Chest PA and Lateral [facility] Services [address] [place] [address] Chest PA and Lateral MR#: [id number] Acct: [id number] Name: TRE QUIÑONES Rep #: [id number] : 1955 M 69 From: Vick Matthews MD PCP: [facility] Status: REG ER Study: Chest PA and Lateral Date of Exam: 04/18/24 Exam# [id number] Ordering Dr: Sowmya Pryor [id number] EXAM: XR CHEST, 2 VIEWS CLINICAL INDICATION: [...] at 12:45 EST , CC: RODRICK Rocha; [facility] Brim Stiffener: Signed Normal [facility] Emergency Department Summary on 04-18-2024 Emergency Department Summary [facility] Medical Records Department [address] [place] [address] Emergency Department Summary 04/18/24 MR#: [id number] Acct: [id number] Name: TRE QUIÑONES Rep #: [id number] : 1955 69 From: Sowmya MENSAH PCP: [facility] Status:DEP ER Location: ED HPI History of [...] Xarelto, HTN, pacemaker placement, asthma, and CHF. [facility] Medical History History of pacemaker Wears [...] 97 O (more content not included)... Normal [facility] M100.678on 04-18-2024 M100.678 Pending SARS-CoV-2 (COVID 19) Negative INFLUENZA A Negative INFLUENZA B Negative RSV PCR Negative Normal [facility] Comment on above: Performed By: #### M 100.678 #### [facility] [address] [place], [address] Pacemaker Checkon 03-13-2024 Pacemaker Check [facility] [place] [facility] [address] [place] [address] Pacemaker Check Date of Service: 03/13/241705 MR#: [id number] Acct: [id number] Name: TRE QUIÑONES Rep #: [id number] : 1955 From: Jolene Larkin Age/Sex: 69/M [place] [facility] [place]: Signed Billing Codes PM Device Codes: 50083 PM Dev Prog Eval, Dual Assessment and [...] Staples Signature: Date (if applicable) CC: Normal [facility] Candy 03-04-2024 CNPN Telephone (HVICTR) QUIÑONESTRE COYLE ([id number]) 1955 M Date Time Provider Department 03/04/24 Phillip DIAMOND HVICTR During your visit today, we recorded the following information about you: Mikaela Pantoja RN 03/04/2024 1:46 PM Signed [facility] Phone Encounter DATE of SERVICE: 03/04/2024 TIME of SERVICE: 1:43 PM Status: FYI Service/Provider: Cardiac Surgery Tunde Diamond M.D. Reason for call: Shortness of Breath Contact information: [phone] Resolution: Reinforced education Comments: patient called to [...] exertion) [R06.09] 01/19/2024 PAF (paroxysmal atrial fibrillation) ([facility]) [I48*01/19/2024 Mitral valve prolapse [I34.1] 01/19/2024 Postoperative pain [G89.18] 01/23/2024 On mechanically assisted ventilation ([facility]) [Z99*01/23/2024 Stress hyperglycemia [R73.9] 01/23/2024 Anxiety [F41.9] 01/23/2024 Cardiac pacemaker in situ [Z95.0] 01/23/2024 Class 3 severe obesity due to excess calories w*01/23/2024 Severe mitral regurgitation [I34.0] 01/23/2024 Cardiac arrest ([facility]) [I46.9] 01/23/2024 Cardiac insufficiency following cardiac surgery*01/23/2024 Ex-smoker [Z87.891] 01/25/2024 Ex-tobacco chewer [Z87.891] 01/25/2024 HTN (hypertension) [I10] 01/25/2024 Hypervolemia [E87.70] 01/25/2024 ABLA (acute blood loss anemia) [D62] 01/25/2024 Thrombocytopenia ([facility]) [D69.6] 01/25/2024 Leukocytosis [D72.829] 01/25/2024 Atelectasis [J98.11] 01/26/2024 Chronic diastolic HF (heart failure) ([facility]) [I50*01/29/2024 Encounter for support and coordination of trans*01/29/2024 Encounter Status:Closed by MIKAELA PANTOJA on 03/04/24 Normal [facility] BNP,B-Type NATRIURETIC PEPTI Garrett 03-01-2024 Natriuretic peptide B (Bld) [Mass/Vol] 167.5 pg/mL High 0-100 [facility] Comment on above: Performed By: #### M 100.858 #### [facility] [address] [place], [address] CBC W/Diff, Automatedon 11-0 Absolute Lymph 1.63 X10 3/uL Normal 0.83-4.51 [facility] Comment on above: Performed By: #### M 100.678 #### [facility] [address] [place], [address] Absolute Neut 4.4 X10 3/uL Normal 2.0-7.7 [facility] Comment on above: Performed By: #### M 100.678 #### [facility] [address] [place], [address] Basophils/100 WBC (Bld) 1.4 % High 0-1 [facility] Comment on above: Performed By: #### M 100.678 #### [facility] [address] [place], [address] Eosinophils/100 WBC (Bld) 5.8 % High 0-5 [facility] Comment on above: Performed By: #### M 100.678 #### [facility] [address] [place], [address] Erythrocyte distribution width (RBC) [Ratio] 14.4 % Normal 11.6-14.6 [facility] Comment on above: Performed By: #### M 100.678 #### [facility] [address] [place], [address] Hematocrit (Bld) [Volume fraction] 33.2 % Low 40-54 [facility] Comment on above: Performed By: #### M 100.678 #### [facility] [address] [place], [address] Hemoglobin (Bld) [Mass/Vol] 10.1 g/dL Low 13.0-16.5 [facility] Comment on above: Performed By: #### M 100.678 #### [facility] [address] [place], [address] IG% 0.400 Normal 0.0-0.9 [facility] Comment on above: Result Comment: IG% - Immature Granulocytes (promyelocytes, myelocytes and metamyelocytes) > 1% indicates that a LEFT SHIFT is Present. Performed By: #### M 100.678 #### [facility] [address] [place], [address] Lymphocytes/100 WBC (Bld) 22.0 % Normal 19-41 [facility] Comment on above: Performed By: #### M 100.678 #### [facility] [address] [place], [address] MCH (RBC) [Entitic mass] 27.2 pg Normal 27.0-32.0 [facility] Comment on above: Performed By: #### M 100.678 #### [facility] [address] [place], [address] MCHC (RBC) [Mass/Vol] 30.4 g/dL Low 32-36 [facility] Comment on above: Performed By: #### M 100.678 #### [facility] [address] [place], [address] MCV (RBC) [Entitic vol] 89.2 fL Normal 80-94 [facility] Comment on above: Performed By: #### M 100.678 #### [facility] [address] [place], [address] Monocytes/100 WBC (Bld) 11.5 % High 0-10 [facility] Comment on above: Performed By: #### M 100.678 #### [facility] [address] [place], [address] Neutrophils/100 WBC (Bld) 58.9 % Normal 47-70 [facility] Comment on above: Performed By: #### M 100.678 #### [facility] [address] [place], [address] Nucleated RBC (Bld) [#/Vol] 0 10*3/uL Normal 0-5 [facility] Comment on above: Performed By: #### M 100.678 #### [facility] [address] [place], [address] Platelet mean volume (Bld) [Entitic vol] 10.4 fL Normal 6.2-12.0 [facility] Comment on above: Performed By: #### M 100.678 #### [facility] [address] [place], [address] Platelets (Bld) [#/Vol] 239 10*3/uL Normal 150-450 [facility] Comment on above: Performed By: #### M 100.678 #### [facility] [address] [place], [address] RBC (Bld) [#/Vol] 3.72 10*6/uL Low 4.6-6.2 [facility] Comment on above: Performed By: #### M 100.678 #### [facility] [address] [place], [address] RDW SD 46.4 fl High 35.1-43.9 [facility] Comment on above: Performed By: #### M 100.678 #### [facility] [address] [place], [address] WBC (Bld) [#/Vol] 7.4 10*3/uL Normal 4.4-11.0 [facility] Comment on above: Performed By: #### M 100.678 #### [facility] [address] [place], [address] Comprehensive [facility]-01-2024 Albumin [Mass/Vol] 3.8 g/dL Normal 3.2-5.0 [facility] Comment on above: Performed By: #### M 100.678 #### [facility] [address] [place], [address] Albumin/Globulin [Mass ratio] 1.3 {ratio} Normal 0.9-2.4 [facility] Comment on above: Performed By: #### M 100.678 #### [facility] [address] [place], [address] ALK P 64 U/L Normal 45-117 [facility] Comment on above: Performed By: #### M 100.678 #### [facility] [address] [place], [address] ALT [Catalytic activity/Vol] 24 U/L Normal 16-61 [facility] Comment on above: Performed By: #### M 100.678 #### [facility] [address] [place], [address] AST [Catalytic activity/Vol] 12 U/L Low 15-37 [facility] Comment on above: Performed By: #### M 100.678 #### [facility] [address] [place], [address] Bilirubin [Mass/Vol] 0.40 mg/dL Normal 0.20-1.00 [facility] Comment on above: Result Comment: For patients on eltrombopag therapy, use of Dimension [place] TBIL is not recommended. Performed By: #### M 100.678 #### [facility] [address] [place], [address] BUN/CRE 21.7 RATIO High 10-20 [facility] Comment on above: Performed By: #### M 100.678 #### [facility] [address] [place], [address] CA,Total 9.3 mg/dL Normal 8.5-10.1 [facility] Comment on above: Performed By: #### M 100.678 #### [facility] [address] [place], [address] Chloride [Moles/Vol] 110 mmol/L High 98-107 [facility] Comment on above: Performed By: #### M 100.678 #### [facility] [address] [place], [address] CO2 [Moles/Vol] 29.0 mmol/L Normal 21.0-32.0 [facility] Comment on above: Performed By: #### M 100.678 #### [facility] [address] [place], [address] Creatinine [Mass/Vol] 1.06 mg/dL Normal 0.70-1.30 [facility] Comment on above: Result Comment: The validity of the calculated GFR GFRAA in patients over 70 years has not been determined. Clinical correlation is essential. Performed By: #### M 100.678 #### [facility] [address] [place], [address] EST GFR - AA 90 mL/min Normal >60 [facility] Comment on above: Result Comment: Afri can Luxem[place]ger GFR Calc Performed By: #### M 100.678 #### [facility] [address] [place], [address] GAP 3 Low 5-15 [facility] Comment on above: Performed By: #### M 100.678 #### [facility] [address] [place], [address] GFR/1.73 sq M.predicted among non-blacks MDRD (S/P/Bld) [Vol rate/Area] 74 mL/min/{1.73_m2} Normal >60 [facility] Comment on above: Result Comment: Non- GFR Calc Performed By: #### M 100.678 #### [facility] [address] [place], [address] Globulin (S) [Mass/Vol] 3.0 g/dL Normal 2.2-4.2 [facility] Comment on above: Performed By: #### M 100.678 #### [facility] [address] [place], [address] Glucose [Mass/Vol] 101 mg/dL Normal 74-106 [facility] Comment on above: Result Comment: Fast ing Glucose result from 100 to 125 mg/dL suggests IMPAIRED HOMEOSTASIS per A.D.A. criteria. Performed By: #### M 100.678 #### [facility] [address] [place], [address] Potassium [Moles/Vol] 3.9 mmol/L Normal 3.5-5.1 [facility] Comment on above: Performed By: #### M 100.678 #### [facility] [address] [place], [address] Sodium [Moles/Vol] 142 mmol/L Normal 136-145 [facility] Comment on above: Performed By: #### M 100.678 #### [facility] [address] [place], [address] T PROT 6.8 g/dL Normal 6.4-8.2 [facility] Comment on above: Performed By: #### M 100.678 #### [facility] [address] [place], [address] Urea nitrogen [Mass/Vol] 23 mg/dL High 7-18 [facility] Comment on above: Performed By: #### M 100.678 #### [facility] [address] [place], [address] Magnesiumon 03-01-2024 Magnesium [Mass/Vol] 2.9 mg/dL High 1.6-2.6 [facility] Comment on above: Performed By: #### M 100.678 #### [facility] [address] [place], [address] Thyroid Stim Hormone (TSH)on 03-01-2024 TSH 0.805 uIU/mL Normal 0.358-3.740 [facility] Comment on above: Performed By: #### M 100.678 #### [facility] [address] [place], [address] CR - History AND Physicalon 02-28-2024 CR - History & Physical [facility] [address] [place] [address] CR - History Physical MR#: [id number] Acct: [id number] Name: TRE QUIÑONES Rep #: [id number] : 1955 69 From: Darryl Aj BS, RVT PCP: [facility] DOS: 02/28/24 CR - History Physical General [...] Negative Advanced Directives Advanced Directives Power of Apricot Packer: Yes Living Will: Yes Advance Directives Information [...] at home (more content not included)... Normal [facility] Cardiology Visit Reporton Cardiology Visit Report [facility] [address] [place] [address]. [address] [place] [address] OFFICE VISIT Date of Service: 02/19/24 MR#: [id number] Acct: [id number] Name: TRE QUIÑONES Rep #: [id number] : 1955 Provider: JOHNNA lira Age/Sex: 69/M Location[facility] Status: Signed [facility] History of Present Illness Details: TRE [...] and flutter. He was sent to the [facility]. The more recent evaluation demonstrated areas of atrial flutter in the tricuspid annulus region. He also subsequently had a permanent pacemaker implanted after his radio frequency ablation in 2017. He had started experiencing more atrial arrhythmias once again and he was sent back to [facility]. It was felt after discussing all the options that the sotalol should be discontinued and he was started on amiodarone. He had been following up at the [facility] due to insurance issues. He had a stress test in 2020. He did have an echocardiogram performed on September 13 at the [facility] and he was recorded to have a moderately dilated left ventricle with estimated ejection fraction of 60 to 65% right ventricle with a pacemaker placed in mitral valve which was normal with severe mitral regurgitation. He had echocardiogram in October 2023 at [facility] that showed ejection fraction of 60% and moderately severe eccentric mitral valve insufficiency. Transesophageal echocardiogram on 11/21/2023 showed severe mitral valve insufficiency. Heart catheterization on 11/21/2023 showed angiographically normal coronary arteries. He was seen with [facility], Dr. Diamond in January 2024. Mitral [...] function 55???5%, mildly dilated right ventricle, #33 [place] mitral valve annuloplasty ring with trace mitral [...] air Intake Visit Reasons: 1 W FU Bill Clerk Required: No Accompanied by: Is patient in [...] 02/19/24 Hist (more content not included)... Normal [facility] CBC panel Auto (Bld)on 02-05 Erythrocyte distribution width (RBC) [Ratio] 14.6 % Normal 11.5-15.0 [facility] Comment on above: Order Comment: Jeison parry Type: BLOOD SPECIMEN Ordering Facility: [facility] Address: [address] [place] [address] Performed By: #### 5 8410-2 #### [facility] CLIA [id number] [address] [place], [place] [address] [place] [address] [place] Hematocrit (Bld) [Volume fraction] 28.8 % Low 39.0-51.0 [facility] Comment on above: Order Comment: Jeison parry Type: BLOOD SPECIMEN Ordering Facility: [facility] Address: [address] [place] [address] Performed By: #### 5 8410-2 #### [facility] CLIA [id number] [address] [place] [address] [place] Hemoglobin (Bld) [Mass/Vol] 9.0 g/dL Low 13.0-17.0 [facility] Comment on above: Order Comment: Speci men Type: BLOOD SPECIMEN [facility]ing Facility: [facility] Address: [address] [place] [address] Performed By: #### 5 8410-2 #### [facility] CLIA [id number] [address] [place] [address] [place] MCH (RBC) [Entitic mass] 28.0 pg Normal 26.0-34.0 [facility] Comment on above: Order Comment: Speci men Type: BLOOD SPECIMEN Ordering Facility: [facility] Address: [address] [place] [address] Performed By: #### 5 8410-2 #### [facility] CLIA [id number] [address] [place] [address] [place] MCHC (RBC) [Mass/Vol] 31.3 g/dL Normal 30.5-36.[address] [facility] Comment on above: Order Comment: Speci men Type: BLOOD SPECIMEN Ordering Facility: [facility] Address: [address] [place] [address] Performed By: #### 5 8410-2 #### [facility] CLIA [id number] [address] [place] [address] [place] MCV (RBC) [Entitic vol] 89.7 fL Normal 80.0-100.0 [facility] Comment on above: Order Comment: Speci men Type: BLOOD SPECIMEN Ordering Facility: [facility] Address: [address] [place] [address] Performed By: #### 5 8410-2 #### [facility] CLIA [id number] [address] [place] [address] [place] Nucleated RBC (Bld) [#/Vol] 10*3/uL Normal <0.01 [facility] Comment on above: Order Comment: Speci men Type: BLOOD SPECIMEN Ordering Facility: [facility] Address: [address] [place] [address] Performed By: #### 5 8410-2 #### [facility] CLIA [id number] [address] [place] [address] [place] Platelet mean volume (Bld) [Entitic vol] 9.2 fL Normal 9.0-12.7 [facility] Comment on above: Order Comment: Speci men Type: BLOOD SPECIMEN Ordering Facility: [facility] Address: [address] [place] [address] Performed By: #### 5 8410-2 #### [facility] CLIA [id number] [address] [place] [address] [place] Platelets (Bld) [#/Vol] 403 10*3/uL High 150-400 [facility] Comment on above: Order Comment: Speci men Type: BLOOD SPECIMEN [facility]ing Facility: [facility] Address: [address] [place] [address] Performed By: #### 5 8410-2 #### [facility] CLIA [id number] [address] [place] [address] [place] RBC (Bld) [#/Vol] 3.21 10*6/uL Low 4.20-6.00 [facility] Comment on above: Order Comment: Speci men Type: BLOOD SPECIMEN Ordering Facility: [facility] Address: [address] [place] [address] Performed By: #### 5 8410-2 #### [facility] CLIA [id number] [address] [place] [address] [place] WBC (Bld) [#/Vol] 9.24 10*3/uL Normal 3.70-11.00 [facility] Comment on above: Order Comment: Speci men Type: BLOOD SPECIMEN Ordering Facility: [facility] Address: [address] [place] [address] Performed By: #### 5 8410-2 #### [facility] CLIA [id number] [address] [place] [address] [id number] [place] [address] OF [facility] CNOVon 02-06-2024 CNOV Office Visit (THOSMN ) TRE QUIÑONES ([id number]) 1955 M Date Time Provider Department 02/06/24 9:00 AM LIZ MADSEN During your visit today, we recorded the following information about you: Temperature Pulse Respiration Blood pressure 99.1 degrees 70/minute 16/minute 105/56 Weight Height 146.1 kg 1.829 m Liz Madsen APRN.OPERATING SYSTEMS PROGRAMMER 02/06/2024 5:04 PM [facility] [place] [facility] Department of Cardiovascular Medicine DEPARTMENT [...] valve annuloplas (more content not included)... Normal [facility] Comprehensive metabolic 2000 panelon 02-06-2024 Albumin [Mass/Vol] 3.8 g/dL Low 3.9-4.9 [facility] Comment on above: Order Comment: Speci men Type: BLOOD SPECIMEN Ordering Facility: [facility] Address: [address] [place] [address] Performed By: #### 2 4323-8 #### [facility] CLIA [id number] [address] [place] [address] [place] [address] [place] ALP [Catalytic activity/Vol] 89 U/L Normal 38-113 [facility] Comment on above: Order Comment: Speci men Type: BLOOD SPECIMEN Ordering Facility: [facility] Address: [address] [id number] Performed By: #### 2 4323-8 #### [facility] CLIA [id number] [address] [place] [address] [place] ALT [Catalytic activity/Vol] 40 U/L Normal 10-54 [facility] Comment on above: Order Comment: Speci men Type: BLOOD SPECIMEN Ordering Facility: [facility] Address: [address] [place] [address] Performed By: #### 2 4323-8 #### [facility] CLIA [id number] [address] [place] [address] [place] Anion gap [Moles/Vol] 11 mmol/L Normal 8-[address] [facility] Comment on above: Order Comment: Speci men Type: BLOOD SPECIMEN Ordering Facility: [facility] Address: [address] [place] [address] Performed By: #### 2 4323-8 #### [facility] CLIA [id number] [address] [place] [address] [place] AST [Catalytic activity/Vol] 23 U/L Normal 14-40 [facility] Comment on above: Order Comment: Speci men Type: BLOOD SPECIMEN Ordering Facility: [facility] Address: [address] [place], [place] [address] Performed By: #### 2 4323-8 #### [facility] CLIA [id number] [address] [place] [address] [place] Bilirubin [Mass/Vol] 0.3 mg/dL Normal 0.2-1.3 [facility] Comment on above: Order Comment: Speci men Type: BLOOD SPECIMEN Ordering Facility: [facility] Address: [address] [place], [place] [address] Performed By: #### 2 4323-8 #### [facility] CLIA [id number] [address] [id number] [address] [place] Calcium [Mass/Vol] 9.3 mg/dL Normal 8.5-10.2 [facility] Comment on above: Order Comment: Speci men Type: BLOOD SPECIMEN Ordering Facility: [facility] Address: [address] [place] [address] Performed By: #### 2 4323-8 #### [facility] CLIA [id number] [address] [place] [address] [place] Chloride [Moles/Vol] 105 mmol/L Normal 98-107 [facility] Comment on above: Order Comment: Speci men Type: BLOOD SPECIMEN [facility]ing Facility: [facility] Address: [address] [place] [address] Performed By: #### 2 4323-8 #### [facility] CLIA [id number] [address] [place] [address] [place] CO2 [Moles/Vol] 24 mmol/L Normal 22-30 [facility] Comment on above: Order Comment: Speci men Type: BLOOD SPECIMEN Ordering Facility: [facility] Address: [address] [place] [address] Performed By: #### 2 4323-8 #### [facility] CLIA [id number] [address] [place] [address] [place] Creatinine [Mass/Vol] 1.19 mg/dL Normal 0.73-1.[address] [facility] Comment on above: Order Comment: Speci men Type: BLOOD SPECIMEN Ordering Facility: [facility] Address: [address] [place] [address] Performed By: #### 2 4323-8 #### [facility] CLIA [id number] [address] [place] [address] [place] Creatinine and Glomerular filtration rate.predicted panel (S/P/Bld) 67 mL/min/1.73m??? Normal >=60 [facility] Comment on above: Order Comment: Speci men Type: BLOOD SPECIMEN Ordering Facility: [facility] Address: [address] [place] [address] Result Comment: Talisha mated Glomerular Filtration Rate [...] GFR. Performed By: #### 2 4323-8 #### [facility] CLIA [id number] [address] [place] [address] [place] Glucose [Mass/Vol] 97 mg/dL Normal 74-99 [facility] Comment on above: Order Comment: Jeison parry Type: BLOOD SPECIMEN Ordering Facility: [facility] Address: [address] [place] [address] Result Comment: The [place] Diabetes Association (ADA) provides guidance for cutoff [...] Standards of Medical Care in Diabetes 2016, [place] Diabetes Association. Diabetes Care. 2016.39(Suppl 1). Performed By: #### 2 4323-8 #### [facility] CLIA [id number] [address] [place] [address] [place] Potassium [Moles/Vol] 4.7 mmol/L Normal 3.7-5.[address] [facility] Comment on above: Order Comment: Jeison parry Type: BLOOD SPECIMEN [facility]ing Facility: [facility] Address: [address] [place], [place] [address] Performed By: #### 2 4323-8 #### [facility] CLIA [id number] [address] [place] [address] [place] Protein [Mass/Vol] 6.1 g/dL Low 6.3-8.0 [facility] Comment on above: Order Comment: Speci men Type: BLOOD SPECIMEN Ordering Facility: [facility] Address: [address] [place] [address] Performed By: #### 2 4323-8 #### [facility] CLIA [id number] [address] [place] [address] [place] Sodium [Moles/Vol] 140 mmol/L Normal 136-144 [facility] Comment on above: Order Comment: Speci men Type: BLOOD SPECIMEN [facility]ing Facility[facility] Address: [address] [place] [address] Performed By: #### 2 4323-8 #### [facility] CLIA [id number] [address] [place] [address] [place] Urea nitrogen [Mass/Vol] 36 mg/dL High 9-24 [facility] Comment on above: Order Comment: Speci men Type: BLOOD SPECIMEN Ordering Facility: [facility] Address: [address] [place] [address] Performed By: #### 2 4323-8 #### [facility] CLIA [id number] [address] [place] [address] [place] ECG COMPLETEon 02-06-2024 ECG COMPLETE Ventricular Rate : 8 0 BPM QRS Duration : 186 ms Q-T Interval : 472 ms QTC Calculation(Bazett) : 544 ms Calculated R [place] : 226 degrees Calculated T [place] : 85 degrees ATRIAL FIBRILLATION WITH VENTRICULAR PACEMAKER RHYTHM ABNORMAL ECG Confirmed by MD GRUBBS TAMANNA ([id number]) on 03/06/2024 5:23:14 PM NAME : TRE QUIÑONES PID : [id number] : 1955 Gender : Male Race : ORD : [id number] Procedure Date : Feb 06 2024 07:59:47 Edit Date : Mar 06 2024 17:23:15 Diagnosis: ATRIAL FIBRILLATION WITH VENTRICULAR PACEMAKER RHYTHM ABNORMAL ECG Confirmed by MD GRUBBS TAMANNA ([id number]) on 03/06/2024 5:23:14 PM Test Reason : Location : 314 : J14 Overread By : MD GRUBBS TAMANNA Edited By : MD GRUBBS TAMANNA Referred By : Phillip DIAMOND Acquired by : NAGA VALDIVIA Normal [facility] XR CHEST 2V FRONTAL/LATon XR CHEST [...] within the thoracic spine. IMPRESSION: See result. Brim Stiffener: [facility] Transcribe Date/Time: Feb 06 2024 2:34P Dictated by : CAROLYN ROBERTSON MD This examination was interpreted and the report reviewed and electronically signed by: CAROLYN ROBERTSON MD on Feb 06 2024 2:48PM EST [id number] Normal [facility] XR Chest PA and Lateralon IMPRESSION: See result. Brim Stiffener: [facility] Transcribe Date/Time: Feb 06 2024 2:34P [...] the thoracic spine. DIVISION OF RADIOLOGY Provider, [facility] - 02/06/2024 * * *Final Report* [...] the thoracic spine. IMPRESSION IMPRESSION: See result. Brim Stiffener: [facility] Transcribe Date/Time: Feb 06 2024 2:34P Dictated by : CAROLYN ROBERTSON MD This examination was interpreted and the report reviewed and electronically signed by: CAROLYN ROBERTSON MD on Feb 06 2024 2:48PM [facility] Radiology Study observation (narrative) Jarad kitchen [facility] XR Chest PA and LateralOrder ed By: [facility]cf Provider on 02-06-2024 [facility] Candy 01-31-2024 CNPN Telephone (PODCCP) TRE QUIÑONES ([id number]) 1955 M Date Time Provider Department 01/31/24 [...] Pt instructed to contact 24-hour nurse hotline [phone] for any questions or concerns. Pt verbalized [...] Reason for Visit: Follow Up Phone Call [8421] Cmt: follow up call all clear. Prescriptions [...] exertion) [R06.09] 01/19/2024 PAF (paroxysmal atrial fibrillation) ([facility]) [I48*01/19/2024 Mitral valve prolapse [I34.1] 01/19/2024 Postoperative pain [G89.18] 01/23/2024 On mechanically assisted ventilation ([facility]) [Z99*01/23/2024 Stress hyperglycemia [R73.9] 01/23/2024 Anxiety [F41.9] (more content not included)... Normal [facility] CARDIAC IMPLANTABLE DEVICE C HECKOrdered By: Kristofer Light on 01-23-2024 Battery Remaining Longevity 11.0 [facility] Work Phone: Battery Status KEVIN [facility] Work Phone: David Setting AT Mode Switch Rate 170 [facility] Work Phone: David Setting Lower Rate Limit 90 [facility] Work Phone: David Setting Maximum Sensor Rate 115 [facility] Work Phone: David Setting Maximum Tracking Rate 130 [facility] Work Phone: David Setting Mode (NBG Code) DDDR [facility] Work Phone: David Setting PAV Delay [address] [facility] Work Phone: David Setting NORIS Delay [address] [facility] Work Phone: Date Time Interrogation Session [facility] Work Phone: Implantable Lead Location Right Ventricle [facility] Work Phone: Implantable Lead Location Right Atrium [facility] Work Phone: Implantable Lead Model 7742 [facility] Work Phone: Implantable Lead Model 7741 [facility] Work Phone: Implantable Lead Serial Number [id number] [facility] Work Phone: Implantable Lead Serial Number [id number] [facility] Work Phone: Implantable Pulse Generator Implant Date 20171201 [facility] Work Phone: 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[employer] [facility] Work Phone: Implantable Pulse Generator Model L111 [facility] Work Phone: Implantable Pulse Generator Serial Number [id number] [facility] Work Phone: Implantable Pulse Generator Type Pacemaker [facility] Work Phone: Lead Channel Impedance Value 594 [facility] Work Phone: Lead Channel Impedance Value 598 [facility] Work Phone: Lead Channel Pacing Threshold Amplitude 1.300 [facility] Work Phone: Lead Channel Pacing Threshold Amplitude 1.400 [facility] Work Phone: Lead Channel Pacing Threshold Pulse Width 0.9 [facility] Work Phone: Lead Channel Pacing Threshold Pulse Width 0.4 [facility] Work Phone: Lead Channel Sensing Intrinsic Amplitude 1.100 [facility] Work Phone: Lead Channel Sensing Intrinsic Amplitude 8.100 [facility] Work Phone: Lead Channel Setting Pacing Amplitude 3.000 [facility] Work Phone: Lead Channel Setting Pacing Amplitude 2.800 [facility] Work Phone: Lead Channel Setting Pacing Pulse Width 0.9 [facility] Work Phone: Lead Channel Setting Pacing Pulse Width 0.4 [facility] Work Phone: Lead Channel Setting Sensing Sensitivity 0.25 [facility] Work Phone: Lead Channel Setting Sensing Sensitivity 2.50 [facility] Work Phone: Rate 1 185 [facility] Work Phone: Zone ID 1 [facility] Work Phone: Zone ID 2 [facility] Work Phone: Zone ID 3 [facility] Work Phone: Zone Setting Type Category VF [facility] Work Phone: Zone Setting Type Category VT [facility] Work Phone: Zone Setting Type Category VT1 [facility] Work Phone: [facility] Work Phone: CARDIAC IMPLANTABLE DEVICE [place] 01-23-2024 Title: Hospital [facility] k * Patient was seen in hospital [...] Full Docket/PDF found below under Scanned Documents. 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[employer] [facility] Work Phone: Lead Channel Measurements Date and Time 2024-01-23 [facility] Work Phone: Zone Setting Status On [facility] Work Phone: CREATININE, BLOOD (POC)on Creatinine [Mass/Vol] 1.20 mg/dL 0.7 - 1.4 mg/dL [facility] eGFR (POCT) mL/min/1.73 m2 [facility] Location:Radiology [facility], [address] [place] [address], [id number] [facility] POINT OF CARE [facility] CTA Chest vessels [...] minimal luminal caliber throughout = 12 mm Brim Stiffener: [facility] Transcribe Date/Time: Jan 19 2024 10:29A Dictated by : LUKE JOHNSON MD This examination was interpreted and the report reviewed and electronically signed by: LUKE JOHNSON MD on Jan 19 2024 10:47AM [facility] DIVISION OF RADIOLOGY * * *Final [...] abdominal aorta. AORTIC ROOT: 3.2 cm measured [id number] mid ASCENDING THORACIC AORTA: 3.3 cm mid [...] changes of the thoracic and lumbar spine. Manager Cardiac Cath (topogram) images: No additional findings. DIVISION OF RADIOLOGY Provider, Noah Olguin [facility] - 01/19/2024 * * *Final Report* [...] abdominal aorta. AORTIC ROOT: 3.2 cm measured [id number] mid ASCENDING THORACIC AORTA: 3.3 cm mid [...] changes of the thoracic and lumbar spine. Manager Cardiac Cath (topogram) images: No additional findings. IMPRESSION IMPRESSION: Moderate left atrial enlargement. The mitral valve leaflets are moderately thickened, somewhat redundant, but noncalcified. Normal thoracic and abdominal aorta. No acute aortic pathology identified. The pelvic arteries, including the common femoral arteries are normal in course, caliber, and contour. The minimal luminal caliber throughout = 12 mm Brim Stiffener: [employer] Transcribe Date/Time: Jan 19 2024 10:29A Dictated by : LUKE JOHNSON MD This examination was interpreted and the report reviewed and electronically signed by: LUKE JOHNSON MD on Jan 19 2024 10:47AM EST [facility] Radiology Study observation (narrative) [facility] CTA Chest vessels and Abdomi nal vessels and Pelvis vessels W contrast IVOrdered By: Ccf Provider on 01-19-2024 [facility] XR Chest PA and Lateralon IMPRESSION: See Result. Brim Stiffener: [facility] Transcribe Date/Time: Jan 19 2024 11:03A [...] the thoracic spine. DIVISION OF RADIOLOGY Provider, [facility] - 01/19/2024 * * *Final Report* [...] the thoracic spine. IMPRESSION IMPRESSION: See Result. Brim Stiffener: [facility] Transcribe Date/Time: Jan 19 2024 11:03A Dictated by : CONSTANTIN GREENE MD This examination was interpreted and the report reviewed and electronically signed by: CONSTANTIN GREENE MD on Jan 19 2024 11:04AM EST [facility] Radiology Study observation (narrative) [facility] XR Chest PA and LateralOrder ed By: Ccf Provider on 01-19-2024 [facility] XR CHEST PA+LAT [...] permanent cardiac pacemaker. MACRO: None Normal [facility] [facility] XR Chest PA and Lateralon EXAMINATION: [...] Dual-chamber permanent cardiac pacemaker. MACRO: None [employer] Work Phone: Radiology Study observation (narrative) [employer] Work Phone: XR Chest PA and LateralOrder ed By: Henri Sahni on 07-10-2023 [facility] Work Phone: Basophil percentageOrdered B y: Jerardo Monty on 03-29-2023 Basophil percentage < 1.0 mg/dL 0.70-1.30 [facility] No Panel InformationOrdered By: Jerardo Millan on 03-29-2023 Bedside Estimated GFR (eGFR) > 60.0000 mL/min >60 [facility] Basophil percentageOrdered B y: Sherif Kiser on 03-28-2023 Chloride [Moles/Vol] 109 mmol/L 98-107 [facility] Glucose [Mass/Vol] 81 mg/dL 74-106 [facility] Potassium [Moles/Vol] 4.2 mmol/L 3.5-5.1 [facility] Sodium [Moles/Vol] 142 mmol/L 136-145 [facility] WBC (Bld) [#/Vol] 7.0 10*3/uL 4.4-11.0 [facility] Blood erythrocytes count (nu mber/volume)Ordered By: Sherif Kiser on 03-28-2023 RBC (Bld) [#/Vol] 4.85 10*6/uL 4.6-6.2 [facility] Blood hemoglobin measurement (mass/volume)Ordered By: Sherif Kiser on 03-28-2023 Hemoglobin (Bld) [Mass/Vol] 14.3 g/dL 13.0-16.5 [facility] Blood platelet mean volumeOr dered By: Sherif Kiser on 03-28-2023 Platelet mean volume (Bld) [Entitic vol] 10.7 fL 6.2-12.0 [facility] Determination of erythrocyte mean corpuscular volume (MCV)Ordered By: hSerif Kiser on 03-28-2023 MCV (RBC) [Entitic vol] 89.3 fL 80-94 [facility] Hematocrit Auto (Bld) [Volum e fraction]Ordered By: Sherif Kiser on 03-28-2023 Hematocrit (Bld) [Volume fraction] 43.3 % 40-54 [facility] Laboratory - Chemistry and C hemistry - challengeOrdered By: Sherif Kiser on 03-28-2023 CO2 [Moles/Vol] 27.0 mmol/L 21.0-32.0 [facility] Urea nitrogen/Creatinine [Mass ratio] 25.0 mg/mg 10-20 [facility] Laboratory - Hematology and Cell countsOrdered By: Sherif Kiser on 03-28-2023 Erythrocyte distribution width (RBC) [Entitic vol] 43.2 fL 35.1-43.9 [facility] Erythrocyte distribution width (RBC) [Ratio] 13.2 % 11.6-14.6 [facility] MCH (RBC) [Entitic mass] 29.5 pg 27.0-32.0 [facility] MCHC Auto (RBC) [Mass/Vol]Or dered By: Sherif Kiser on 03-28-2023 MCHC (RBC) [Mass/Vol] 33.0 g/dL 32-36 [facility] No Panel InformationOrdered By: Sherif Kiser on 03-28-2023 Estimated GFR (MDRD) Amer 92 mL/min >60 [facility] Comment on above: GFR Calc Estimated GFR (MDRD) Non-Af Amer 76 mL/min >60 [facility] Comment on above: Non- GFR Calc No Panel InformationOrdered By: Jerardo Millan on 03-28-2023 Nasal Screen MRSA/MSSA [facility] Platelets bldOrdered By: Sherif Kiser on 03-28-2023 Platelets (Bld) [#/Vol] 222 10*3/uL 150-450 [facility] Serum or plasma calcium filiberto urement (mass/volume)Ordered By: Sherif Kiser on 03-28-2023 Calcium [Mass/Vol] 9.0 mg/dL 8.5-10.1 [facility] Serum or plasma creatinine m easurement (mass/volume)Ordered By: Sherif Kiser on 03-28-2023 Creatinine [Mass/Vol] 1.04 mg/dL 0.70-1.30 [facility] Comment on above: The validity of the calculated GFR & GFRAA in patients over 70 years has not been determined. Clinical correlation is essential. Serum or plasma urea nitroge n measurement (mass/volume)Ordered By: Sherif Kiser on 12-05-2023 Urea nitrogen [Mass/Vol] 26 mg/dL 7-18 [facility] Thin prep Papanicolaou smear with manual screeningOrdered By: Sherif Kiser on 03-28-2023 Thin prep Papanicolaou smear with manual screening 6 5-15 [facility] Absolute lymphocyte countOrd ered By: Jerardo Millan on 12-20-2022 Lymphocytes Auto (Unsp spec) [#/Vol] 1.71 10*3/uL 0.83-4.51 [facility] Basophil percentageOrdered B y: Jerardo Millan on 12-20-2022 Basophils/100 WBC (Bld) 0.8 % 0-1 [facility] Eosinophils/100 WBC (Bld) 0.8 % 0-5 [facility] Neutrophils (Bld) [#/Vol] 5.8 10*3/uL 2.0-7.7 [facility] Neutrophils/100 WBC (Bld) 68.6 % 47-70 [facility] WBC (Bld) [#/Vol] 8.5 10*3/uL 4.4-11.0 [facility] Basophil percentageOrdered B y: Juana Rodriguez on 12-20-2022 Chloride [Moles/Vol] 112 mmol/L 98-107 [facility] Glucose [Mass/Vol] 91 mg/dL 74-106 [facility] Potassium [Moles/Vol] 4.1 mmol/L 3.5-5.1 [facility] Sodium [Moles/Vol] 143 mmol/L 136-145 [facility] Blood erythrocytes count (nu mber/volume)Ordered By: Jerardo Millan on 12-20-2022 RBC (Bld) [#/Vol] 4.27 10*6/uL 4.6-6.2 [facility] Blood hemoglobin measurement (mass/volume)Ordered By: Jerardo Millan on 12-20-2022 Hemoglobin (Bld) [Mass/Vol] 12.9 g/dL 13.0-16.5 [facility] Blood lymphocytes/100 leukoc ytesOrdered By: Jerardo Millan on 12-20-2022 Lymphocytes/100 WBC (Bld) 20.1 % 19-41 [facility] Blood monocytes/100 leukocyt esOrdered By: Jerardo Millan on 12-20-2022 Monocytes/100 WBC (Bld) 9.5 % 0-10 [facility] Blood platelet mean volumeOr dered By: Jerardo Millan on 12-20-2022 Platelet mean volume (Bld) [Entitic vol] 11.5 fL 6.2-12.0 [facility] Determination of erythrocyte mean corpuscular volume (MCV)Ordered By: Jerardo Millan on 12-20-2022 MCV (RBC) [Entitic vol] 91.6 fL 80-94 [facility] Hematocrit Auto (Bld) [Volum e fraction]Ordered By: Jerardo Millan on 12-20-2022 Hematocrit (Bld) [Volume fraction] 39.1 % 40-54 [facility] Laboratory - Chemistry and C hemistry - challengeOrdered By: Juana Rodriguez on 12-20-2022 CO2 [Moles/Vol] 29.0 mmol/L 21.0-32.0 [facility] Urea nitrogen/Creatinine [Mass ratio] 20.7 mg/mg 10-20 [facility] Laboratory - Hematology and Cell countsOrdered By: Jerardo Millan on 12-20-2022 Erythrocyte distribution width (RBC) [Entitic vol] 46.1 fL 35.1-43.9 [facility] Erythrocyte distribution width (RBC) [Ratio] 13.6 % 11.6-14.6 [facility] Immature granulocytes/100 WBC (Bld) 0.200 % 0.0-0.9 [facility] Comment on above: IG% - Immature Granu locytes (promyelocytes, myelocytes and metamyelocytes) > 1% indicates that a LEFT SHIFT is Present. MCH (RBC) [Entitic mass] 30.2 pg 27.0-32.0 [facility] Nucleated RBC/100 WBC (Bld) [Ratio] 0 % 0-5 [facility] MCHC Auto (RBC) [Mass/Vol]Or dered By: Jerardo Millan on 12-20-2022 MCHC (RBC) [Mass/Vol] 33.0 g/dL 32-36 [facility] No Panel InformationOrdered By: Juana Rodriguez on 12-20-2022 Estimated Creatinine Clearance Calc 87.86 ml/min [facility] Estimated GFR (MDRD) Amer 106 mL/min >60 [facility] Comment on above: GFR Calc Estimated GFR (MDRD) Non-Af Amer 88 mL/min >60 [facility] Comment on above: Non- GFR Calc Platelets bldOrdered By: Wang Millan on 12-20-2022 Platelets (Bld) [#/Vol] 194 10*3/uL 150-450 [facility] Serum or plasma calcium filiberto urement (mass/volume)Ordered By: Juana Rodriguez on 12-20-2022 Calcium [Mass/Vol] 8.8 mg/dL 8.5-10.1 [facility] Serum or plasma creatinine m easurement (mass/volume)Ordered By: Juana Rodriguez on 12-20-2022 Creatinine [Mass/Vol] 0.92 mg/dL 0.70-1.30 [facility] Comment on above: The validity of the calculated GFR & GFRAA in patients over 70 years has not been determined. Clinical correlation is essential. Serum or plasma urea nitroge n measurement (mass/volume)Ordered By: Juana Rodriguez on 12-20-2022 Urea nitrogen [Mass/Vol] 19 mg/dL 7-18 [facility] Thin prep Papanicolaou smear with manual screeningOrdered By: Juana Rodriguez on 12-20-2022 Thin prep Papanicolaou smear with manual screening 2 5-15 [facility] Basophil percentageOrdered B y: Asad Mcdonough on 12-19-2022 Bilirubin [Mass/Vol] 0.60 mg/dL 0.20-1.00 [facility] Comment on above: For patients on eltr ombopag therapy, use of Dimension [place] TBIL is not recommended. Protein [Mass/Vol] 7.3 g/dL 6.4-8.2 [facility] Laboratory - Chemistry and C hemistry - challengeOrdered By: Asad Mcdonough on 12-19-2022 ALP [Catalytic activity/Vol] 53 U/L 45-117 [facility] ALT [Catalytic activity/Vol] 31 U/L 16-61 [facility] Globulin (S) [Mass/Vol] 3.1 g/dL 2.2-4.2 [facility] Serum or plasma albumin filiberto urement (mass/volume)Ordered By: Asad Mcdonough on 12-19-2022 Albumin [Mass/Vol] 4.2 g/dL 3.2-5.0 [facility] Serum or plasma albumin/glob ulin mass ratioOrdered By: Asad Mcdonough on 12-19-2022 Albumin/Globulin [Mass ratio] 1.4 {ratio} 0.9-2.4 [facility] Thin prep Papanicolaou smear with manual screeningOrdered By: Asad Mcdonough on 12-19-2022 Thin prep Papanicolaou smear with manual screening 14 U/L 15-37 [facility] COVID-19/INFLUENZA A,B MOLEC ULARon 03-07-2021 SARS-CoV-2 (COVID-19) Ab IA Ql SARS-COV-2 (ROXIE): Not Detected INFLUENZA A (ROXIE): Not Detected INFLUENZA B (ROXIE): Not Detected Normal Not Detected [facility] Comment on above: Order Comment: [...] at the following links: For Healthcare Providers: https://www.fda.gov/media/863420/download For Patients: https://www.fda.gov/media/006330/download Performed By: #### L [id number] #### [facility] [address], [place] [address] Chiki Arreguin M.D. [id number] CT HEAD OR BRAIN WITHOUT CON TRASTon [...] ID: [id number] Dictated by: SHALINI KHAN on [place] Mar 07, 2021 3:32:39 PM EST Transcribed by: SHALINI KHAN on [place] Mar 07, 2021 3:32:39 PM EST Finalized by: SHALINI KHAN on [place] Mar 07, 2021 3:32:39 PM EST Normal [facility] Comment on above: Order Comment: Injur y/Trauma or Illness?:Illness/Other How long have you had these symptoms (acute/chronic)?:Acute Reason for exam?:dizziness Type of Exam?:Initial Additional signs and symptoms?:n/a MAGNESIUMon 12-09-2020 Magnesium [Mass/Vol] 2.2 mg/dL Normal 1.6-2.6 [facility] Comment on above: Performed By: #### M GO #### [facility] (DEFAULT) [address] [address] T4 FREEon 12-09-2020 Free T4 [Mass/Vol] 1.37 ng/dL Normal 0.89-1.76 [facility] Comment on above: Performed By: #### F T4, TSH #### [facility] (DEFAULT) [address] [address] TSHon 12-09-2020 TSH 0.649 uIU/mL Normal 0.550-4.780 [facility] Comment on above: Performed By: #### F T4, TSH #### [facility] (DEFAULT) [address] [place] [address] ALK PHOSPHATASEon 06-02-2020 ALP [Catalytic activity/Vol] 47 U/L Normal 32-126 [facility] Comment on above: Performed By: #### A LP #### [facility] (DEFAULT) [address] [place] [address] CHEM 6 (LYTES, BUN CREA)on 0 06-02-2020 Anion gap [Moles/Vol] 12 mmol/L Normal 7-17 [place] Comment on above: Performed By: #### C HM6, ALTO, HFP, MGO #### [facility] (DEFAULT) [address] [place] [address] Chloride [Moles/Vol] 107 mmol/L Normal 98-108 [facility] Comment on above: Performed By: #### C HM6, ALTO, HFP, MGO #### [facility] (DEFAULT) [address] [place] [address] CO2 [Moles/Vol] 27 mmol/L Normal 22-30 [facility] Comment on above: Performed By: #### C HM6, ALTO, HFP, MGO #### [facility] (DEFAULT) [address] [place] [address] Creatinine [Mass/Vol] 1.10 mg/dL Normal 0.70-1.30 [place] Comment on above: Performed By: #### C HM6, ALTO, HFP, MGO #### [facility] (DEFAULT) [address] [place] [address] EST GFR, >=60 Normal >=60 [facility] Comment on above: Performed By: #### C HM6, ALTO, HFP, MGO #### [facility] (DEFAULT) [address] [place] [address] EST GFR,Non >=60 Normal >=60 [facility] Comment on above: Performed By: #### C HM6, ALTO, HFP, MGO #### [facility] (DEFAULT) [address] [place] [address] Potassium [Moles/Vol] 4.4 mmol/L Normal 3.5-5.0 [place] Comment on above: Performed By: #### C HM6, ALTO, HFP, MGO #### [facility] (DEFAULT) [address] [place] [address] Sodium [Moles/Vol] 142 mmol/L Normal 133-143 [facility] Comment on above: Performed By: #### C HM6, ALTO, HFP, MGO #### [facility] (DEFAULT) [address] [place] [address] Urea nitrogen [Mass/Vol] 21 mg/dL Normal 7-22 [facility] Comment on above: Performed By: #### C HM6, ALTO, HFP, MGO #### [facility] (DEFAULT) [address] [place] [address] Urea nitrogen/Creatinine [Mass ratio] 19 mg/mg Normal [facility] Comment on above: Performed By: #### C HM6, ALTO, HFP, MGO #### [facility] (DEFAULT) [address] [place] [address] HEPATIC FUNCTION PANELon Albumin [Mass/Vol] 4.6 g/dL Normal 3.5-5.0 [facility] Comment on above: Performed By: #### C HM6, ALTO, HFP, MGO #### [facility] (DEFAULT) [address] [place] [address] ALP [Catalytic activity/Vol] 46 U/L Normal 32-126 [facility] Comment on above: Performed By: #### C HM6, ALTO, HFP, MGO #### [facility] (DEFAULT) [address] [place] [address] ALT [Catalytic activity/Vol] 30 U/L Normal 10-52 [facility] Comment on above: Performed By: #### C HM6, ALTO, HFP, MGO #### [facility] (DEFAULT) [address] [place] [address] AST [Catalytic activity/Vol] 25 U/L Normal 14-40 [facility] Comment on above: Performed By: #### C HM6, ALTO, HFP, MGO #### [facility] (DEFAULT) [address] [place] [address] Bilirubin [Mass/Vol] 0.5 mg/dL Normal <1.5 [facility] Comment on above: Performed By: #### C HM6, ALTO, HFP, MGO #### [facility] (DEFAULT) [address] [place] [address] Bilirubin.indirect [Mass/Vol] 0.1 mg/dL Normal <0.3 [facility] Comment on above: Performed By: #### C HM6, ALTO, HFP, MGO #### [facility] (DEFAULT) [address] [place] [address] Protein [Mass/Vol] 6.8 g/dL Normal 6.4-8.3 [facility] Comment on above: Performed By: #### C HM6, ALTO, HFP, MGO #### [facility] (DEFAULT) [address] [place] [address] MAGNESIUMon 06-02-2020 Magnesium [Mass/Vol] 2.3 mg/dL Normal 1.6-2.6 [facility] Comment on above: Performed By: #### C HM6, ALTO, HFP, MGO #### [facility] (DEFAULT) [address] [place] [address] T4 FREEon 06-02-2020 Free T4 [Mass/Vol] 1.24 ng/dL Normal 0.89-1.76 [facility] Comment on above: Performed By: #### F T4 #### [facility] (DEFAULT) [address] [place] [address] TSHon 06-02-2020 TSH 0.538 uIU/mL Low 0.550-4.780 [facility] Comment on above: Performed By: #### T #### [facility] (DEFAULT) [address] [place] [address]119 XR CHEST PA AND LATERALon XR CHEST [...] appears unchanged from December 01, 2017. Normal [facility] ECHOCARDIOGRAMon 05-26-2020 Echocardiography ? Technically difficult [...] There is no pericardial effusion present. Facility [facility] Patient Information Patient Name Tre Quiñones [...] - Reading 05/26/2020 Eleuterio Santillan MD Echo Adams 05/26/2020 Wall Scoring Score Index: 1.00 The [...] PV peak gradient 6 mmHg RVOT peak traic 0.73 m/s RVOT peak gradient 2 mmHg Performing Staff Samanta Amin RDCS Study Details Study(s) performed: complete. Contrast indication: evaluation of left ventricle contiguous segments. Contrast was administered. Study limitations include patient body habitus. Imaging system used: Selero. Indications for study: dyspnea. Exam Details Performed Procedure Technologist Supporting Staff Performing Physician ECHOCARDIOGRAM W/O 3D W/CONTRAST Samanta Amin RDCS Appointment Date/Status Modality Department 05/26/2020 Arrived ECHO TESTING, [facility] ECHOCARDIOGRAPHY ROSS (more content not included)... Abnormal [facility] NUC MYOCARD PERF STRESS MIBI PHARMon [...] Intravenous device wires are noted. Facility [facility] Patient Information Patient Name Tre Quiñones Sex [...] Role Read Date Jimenez Burrell MD ECG Adams, SPECT Adams, Fellow - Reading 05/26/2020 Min Bae MD Test Tire Repairman, ECG Adams, SPECT Adams 05/26/2020 Stress Measurements Baseline Vitals-Supine Baseline HR [...] intensity. The (more content not included)... Normal [facility] Office Visiton 09-07-2016 Documentation of current medications (procedure) Done Invalid Interpretation Code [facility] Work Phone: Tobacco smoking status NHIS Former smoker [facility] Work Phone: Tobacco use CPHS Former smoker Invalid Interpretation Code [facility] Work Phone: Lab Report: BMPon 11-30-2012 Calcium 9.1 mg/dL Normal 8.5-10.1 [facility] Work Phone: Chloride 105 mmol/L Normal 98-107 [facility] Work Phone: Creatinine 0.8 mg/dL Normal 0.8-1.3 [facility] Work Phone: Glucose 80 mg/dL Normal 70-110 [facility] Work Phone: Glucose [Mass/Vol] 80 mg/dL Normal 70-110 [facility] Work Phone: Potassium 4.2 mmol/L Normal 3.5-5.1 [facility] Work Phone: Sodium 141 mmol/L Normal 136-145 [facility] Work Phone: Urea nitrogen 21 mg/dL High 7-18 [facility] Work Phone: Lab Report: BTNPon 3 BTNP 26.9 pg/mL Normal <100 [facility] Work Phone: GE use only - for [employer] import when terms are not otherwise specified 26.9 pg/mL Normal <100 [facility] Work Phone: Lab Report: CBCon 11-30-2012 Erythrocytes (RBC) 4.97 10*6/uL Normal 4.6-6.2 [facility] Work Phone: Hematocrit (Bld) [Volume fraction] 42.8 % Normal 40-54 [facility] Work Phone: Hematocrit (HCT) 42.8 % Normal 40-54 [facility] Work Phone: Hemoglobin (HGB) 14.6 g/dL Normal 13.0-16.5 [facility] Work Phone: Platelets 187 10*3/mm3 Normal 150-450 [facility] Work Phone: Platelets (Bld) [#/Vol] 187 10*3/mm3 Normal 150-450 [facility] Work Phone: RBC (Bld) [#/Vol] 4.97 10*6/uL Normal 4.6-6.2 [facility] Work Phone: WBC (Bld) [#/Vol] 6.8 10*3/uL Normal 4.4-11.0 [facility] Work Phone: WBC (Leukocytes) 6.8 10*3/uL Normal 4.4-11.0 [facility] Work Phone: Lab Report: TSHon 11-30-2012 Thyroid stimulating hormone (TSH) 0.96 u[iU]/mL Normal 0.358-3.74 [facility] Work Phone: Office Visit: [facility] 12-01-19 13 Documentation of current medications (procedure) Done Invalid Interpretation Code [facility] Work Phone: Replaced Document: Chavo Sarmiento CG Observationson 11-30-2012 EKG QRS axis -4 deg [facility] Work Phone: electrocardiogram interpretation Sinus Rhythm WITHIN NORMAL LIMITS Invalid Interpretation Code [facility] Work Phone: Interpretation Sinus Rhythm WITHIN NORMAL LIMITS [facility] Work Phone: P [place] 41 deg [facility] Work Phone: P wave axis, electrocardiogram 41 deg Invalid Interpretation Code [facility] Work Phone: [place] Interval 184 ms [facility] Work Phone: WA interval, electrocardiogram 184 ms Invalid Interpretation Code [facility] Work Phone: Pulse (Heart Rate) 398 ms Invalid Interpretation Code [facility] Work Phone: Pulse (Heart Rate) 78 /min Invalid Interpretation Code [facility] Work Phone: QRS axis, electrocardiogram -4 deg Invalid Interpretation Code [facility] Work Phone: QRS Duration 98 ms [facility] Work Phone: QRS duration, electrocardiogram 98 ms Invalid Interpretation Code [facility] Work Phone: QT Interval new path ms [facility] Work Phone: QT interval, electrocardiogram new path ms Invalid Interpretation Code [facility] Work Phone: T [place] 22 deg [facility] Work Phone: T wave axis, electrocardiogram 22 deg Invalid Interpretation Code [facility] Work Phone: Clinical Lists Update: 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 Anion gap 5 mmol/L Invalid Interpretation Code [facility] Work Phone: Anion gap [Moles/Vol] 5 mmol/L [facility] Work Phone: BUN/Creatinine Ratio 14.4 mg/mg Invalid Interpretation Code [facility] Work Phone: CO2 29.0 mmol/L Invalid Interpretation Code [facility] Work Phone: CO2 (BldV) [Partial pressure] 29.0 mmol/L [facility] Work Phone: MCH 30.8 pg Invalid Interpretation Code [facility] Work Phone: MCH (RBC) [Entitic mass] 30.8 pg [facility] Work Phone: MCV 86.8 fL Invalid Interpretation Code [facility] Work Phone: MCV (RBC) [Entitic vol] 86.8 fL [facility] Work Phone: Clinical Lists Update: 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 05-30-2011 Tobacco use [facility] former smoker Invalid Interpretation Code [facility] Work Phone: Vital Signs Date Time Vital Sign Value Performing Clinician Facility 01-27-2025 09:26-0400 Body height 182.88 cm [facility] 01-27-2025 09:26-0400 Body weight 146.05 kg [facility] 01-26-2025 11:52-0400 Body temperature 98.5 [degF] [facility] 01-26-2025 11:52-0400 Diastolic blood pressure 79 mm[Hg] [facility] 01-26-2025 11:52-0400 Heart rate 85 /min [facility] 01-26-2025 11:52-0400 Respiratory rate 18 /min [facility] 01-26-2025 11:52-0400 SaO2% (BldA) [Mass fraction] 94 % [facility] 01-26-2025 11:52-0400 Systolic blood pressure 164 mm[Hg] [facility] 01-26-2025 03:51-0400 Body mass index (BMI) [Ratio] 42.7 kg/m2 [facility] 01-26-2025 03:51-0400 Body weight 143.1 kg [facility] 01-25-2025 23:00-0400 Inhaled oxygen concentration 21 % [facility] 01-25-2025 18:45-0400 Inhaled oxygen flow rate 2 L/min [facility] 01-24-2025 08:36-0400 Body mass index (BMI) [Ratio] 43.7 kg/m2 [facility] 01-13-2025 13:46-0400 Body height 182.88 cm [facility] 01-13-2025 13:46-0400 Body mass index (BMI) [Ratio] 43.7 kg/m2 [facility] 01-13-2025 13:46-0400 Body weight 146.05 kg [facility] 01-13-2025 13:46-0400 Diastolic blood pressure 75 mm[Hg] [facility] 01-13-2025 13:46-0400 Heart rate 60 /min [facility] 01-13-2025 13:46-0400 Respiratory rate 16 /min [facility] 01-13-2025 13:46-0400 Systolic blood pressure 122 mm[Hg] [facility] 12-16-2024 15:23-0400 Body height 183 cm Broderick Bundy MD Work Phone: [facility] 12-16-2024 15:23-0400 Body height 182.88 cm Broderick Bundy MD Work Phone: [facility] 12-16-2024 15:23-0400 Body mass index (BMI) [Ratio] 42.2 kg/m2 Broderick Bundy MD Work Phone: [facility] 12-16-2024 15:23-0400 Body weight 141 kg Broderick Bundy MD Work Phone: [facility] 12-16-2024 15:23-0400 Body weight 140.62 kg Broderick Bundy MD Work Phone: [facility] 12-16-2024 15:23-0400 Diastolic blood pressure 66 mm[Hg] Broderick Bundy MD Work Phone: [facility] 12-16-2024 15:23-0400 HGHTCHNVIS Broderick Bundy MD Work Phone: [facility] 12-16-2024 15:23-0400 Systolic blood pressure 114 mm[Hg] Broderick Bundy MD Work Phone: [facility] 12-16-2024 15:23-0400 VITALSDONE Broderick Bundy MD Work Phone: [facility] 12-12-2024 11:15-0400 Diastolic blood pressure 90 mm[Hg] Mri Bore/1.5t) [facility] 12-12-2024 11:15-0400 Heart rate 70 /min Mri Bore/1.5t) [facility] 12-12-2024 11:15-0400 Respiratory rate 15 /min Mri Bore/1.5t) [facility] 12-12-2024 11:15-0400 SaO2% (BldA) [Mass fraction] 96 % Mri Bore/1.5t) [facility] 12-12-2024 11:15-0400 Systolic blood pressure 126 mm[Hg] Mri Bore/1.5t) [facility] 11-01-2024 08:48-0400 Diastolic blood pressure 64 mm[Hg] Denny Cifuentes MD Work Phone: [facility] 11-01-2024 08:48-0400 Heart rate 60 /min Denny Cifuentes MD Work Phone: [facility] 11-01-2024 08:48-0400 Systolic blood pressure 129 mm[Hg] Denny Cifuentes MD Work Phone: [facility] 09-18-2024 11:55-0400 Body height 182.[address] Omer Wray MD Work Phone: [facility] 09-18-2024 11:55-0400 Body mass index (BMI) [Ratio] 44.4 kg/m2 Dr. Omer Wray MD Work Phone: [facility] 09-18-2024 11:55-0400 Body weight 148.[address] Omer Wray MD Work Phone: [facility] 09-18-2024 11:55-0400 Diastolic blood pressure 76 mm[Hg] Dr. Omer Wray MD Work Phone: [facility] 09-18-2024 11:55-0400 Heart rate 66 /min Dr. Omer Wray MD Work Phone: [facility] 09-18-2024 11:55-0400 Respiratory rate 20 /min Dr. Omer Wray MD Work Phone: [facility] 09-18-2024 11:55-0400 Systolic blood pressure 136 mm[Hg] Dr. Omer Wray MD Work Phone: [facility] 08-13-2024 13:06-0400 Body temperature 98.1 [degF] Dr. Omer Wray MD Work Phone: [facility] 08-13-2024 13:06-0400 Diastolic blood pressure 55 mm[Hg] Dr. Omer Wray MD Work Phone: [facility] 08-13-2024 13:06-0400 Heart rate 60 /min Dr. Omer Wray MD Work Phone: [facility] 08-13-2024 13:06-0400 Respiratory rate 15 /min Dr. Omer Wray MD Work Phone: [facility] 08-13-2024 13:06-0400 SaO2% (BldA) [Mass fraction] 96 % Dr. Omer Wray MD Work Phone: [facility] 08-13-2024 13:06-0400 Systolic blood pressure 141 mm[Hg] Dr. Omer Wray MD Work Phone: [facility] 08-13-2024 11:38-0400 Body mass index (BMI) [Ratio] 42.8 kg/m2 Dr. Omer Wray MD Work Phone: [facility] 08-13-2024 11:38-0400 Body weight 143.[address] Omer Wray MD Work Phone: [facility] 02-06-2024 08:54-0400 Body height 182.9 cm Liz Madsen APRN.OPERATING SYSTEMS PROGRAMMER Work Phone: [facility] 02-06-2024 08:54-0400 Body mass index (BMI) [Ratio] 43.67 kg/m2 Liz Madsen ETCHER MACHINE.OPERATING SYSTEMS PROGRAMMER Work Phone: [facility] 02-06-2024 08:54-0400 Body temperature 99.1 [degF] Liz Madsen APRN.OPERATING SYSTEMS PROGRAMMER Work Phone: [facility] 02-06-2024 08:54-0400 Body weight 146.06 kg Andegoni Sandalakis ETCHER MACHINE.OPERATING SYSTEMS PROGRAMMER Work Phone: [facility] 02-06-2024 08:54-0400 Diastolic blood pressure 56 mm[Hg] Andegoni Sandalakis ETCHER MACHINE.OPERATING SYSTEMS PROGRAMMER Work Phone: [facility] 02-06-2024 08:54-0400 Heart rate 70 /min Andegoni Sandalakis ETCHER MACHINE.OPERATING SYSTEMS PROGRAMMER Work Phone: [facility] 02-06-2024 08:54-0400 Respiratory rate 16 /min Andegoni Sandalakis ETCHER MACHINE.OPERATING SYSTEMS PROGRAMMER Work Phone: [facility] 02-06-2024 08:54-0400 SaO2% (BldA) [Mass fraction] 95 % Andegoni Sandalakis ETCHER MACHINE.OPERATING SYSTEMS PROGRAMMER Work Phone: [facility] 02-06-2024 08:54-0400 Systolic blood pressure 105 mm[Hg] Andegoni Sandalakis ETCHER MACHINE.OPERATING SYSTEMS PROGRAMMER Work Phone: [facility] 01-19-2024 12:29-0400 Diastolic blood pressure 60 mm[Hg] Moiz Koenig MD Work Phone: [facility] 01-19-2024 12:29-0400 Systolic blood pressure 108 mm[Hg] Moiz Koenig MD Work Phone: [facility] 01-19-2024 12:26-0400 Body height 182.9 cm Moiz Koenig MD Work Phone: [facility] 01-19-2024 12:26-0400 Body mass index (BMI) [Ratio] 43.13 kg/m2 Moiz Koenig MD Work Phone: [facility] 01-19-2024 12:26-0400 Body weight 144.24 kg Moiz Koenig MD Work Phone: [facility] 01-19-2024 12:26-0400 Heart rate 60 /min Moiz Koenig MD Work Phone: [facility] 01-19-2024 12:26-0400 Respiratory rate 12 /min Moiz Koenig MD Work Phone: [facility] 01-19-2024 12:26-0400 SaO2% (BldA) [Mass fraction] 95 % Moiz Koenig MD Work Phone: [facility] 04-03-2023 12:50-0500 Body temperature 97.8 [degF] Dr. Asad Mcdonough Work Phone: [facility] 04-03-2023 12:50-0500 Diastolic blood pressure 84 mm[Hg] Dr. Asad Mcdonough Work Phone: [facility] 04-03-2023 12:50-0500 Heart rate 78 /min Dr. Asad Mcdonough Work Phone: [facility] 04-03-2023 12:50-0500 Respiratory rate 14 /min Dr. Asad Mcdonough Work Phone: [facility] 04-03-2023 12:50-0500 SaO2% (BldA) [Mass fraction] 97 % Dr. Asad Mcdonough Work Phone: [facility] 04-03-2023 12:50-0500 Systolic blood pressure 126 mm[Hg] Dr. Asad Mcdonough Work Phone: [facility] 04-03-2023 12:00-0500 Inhaled oxygen flow rate 3 L/min Dr. Asad Mcdonough Work Phone: [facility] 04-03-2023 06:24-0500 Body height 182.[address] Asad Mcdonough Work Phone: [facility] 04-03-2023 06:24-0500 Body mass index (BMI) [Ratio] 41.6 kg/m2 Dr. Asad Mcdonough Work Phone: [facility] 04-03-2023 06:24-0500 Body weight 139.[address] Asad Mcdonough Work Phone: [facility] 03-22-2023 08:22-0500 Body mass index (BMI) [Ratio] 41.8 kg/m2 Dr. Asad Mcdonough Work Phone: [facility] 03-22-2023 08:22-0500 Body temperature 97.4 [degF] Dr. Asad Mcdonough Work Phone: [facility] 03-22-2023 08:22-0500 Body weight 139.[address] Asad Mcdonough Work Phone: [facility] 03-22-2023 08:22-0500 Diastolic blood pressure 70 mm[Hg] Dr. Asad Mcdonough Work Phone: [facility] 03-22-2023 08:22-0500 Heart rate 60 /min Dr. Asad Mcdonough Work Phone: [phone] [place] [address] 03-22-2023 08:22-0500 Respiratory rate 18 /min Dr. Asad Mcdonough Work Phone: [facility] 03-22-2023 08:22-0500 SaO2% (BldA) [Mass fraction] 96 % Dr. Asad Mcdonough Work Phone: [facility] 03-22-2023 08:22-0500 Systolic blood pressure 131 mm[Hg] Dr. Asad Mcdonough Work Phone: [facility] 01-03-2023 13:45-0400 Body weight 138.[address] Asad Mcdonough Work Phone: [facility] 12-20-2022 13:58-0400 Body temperature 99.1 [degF] Dr. Asad Mcdonough Work Phone: [facility] 12-20-2022 13:58-0400 Diastolic blood pressure 62 mm[Hg] Dr. Asad Mcdonough Work Phone: [facility] 12-20-2022 13:58-0400 Heart rate 59 /min Dr. Asad Mcdonough Work Phone: [facility] 12-20-2022 13:58-0400 Respiratory rate 16 /min Dr. Asad Mcdonough Work Phone: [facility] 12-20-2022 13:58-0400 SaO2% (BldA) [Mass fraction] 94 % Dr. Asad Mcdonough Work Phone: [facility] 12-20-2022 13:58-0400 Systolic blood pressure 111 mm[Hg] Dr. Asad Mcdonough Work Phone: [facility] 12-20-2022 04:37-0400 Inhaled oxygen flow rate 2 L/min Dr. Asad Mcdonough Work Phone: [facility] 12-19-2022 20:59-0400 Body height 182.[address] Asad Mcdonough Work Phone: [facility] 12-19-2022 16:57-0400 Body mass index (BMI) [Ratio] 41.9 kg/m2 Dr. Asad Mcdonough Work Phone: [facility] 12-19-2022 16:57-0400 Body weight 140.[address] Asad Mcdonough Work Phone: [facility] 09-07-2016 15:07-0400 BMI (Body Mass Index) 43.67 kg/m2 Birdie BAER [facility] Work Phone: 09-07-2016 15:07-0400 Body weight 146.06 kg Birdie Radha [facility] Work Phone: 09-07-2016 15:07-0400 Weight 146.06 kg Birdie Radha [facility] Work Phone: 11-30-2012 13:09-0400 Heart rate 78 /min Birdie Radha [facility] Work Phone: 11-30-2012 13:09-0400 Heart rate 398 ms Birdie Radha [facility] Work Phone: 11-30-2012 13:01-0400 BMI (Body Mass Index) 40.29 kg/m2 [facility] Work Phone: 11-30-2012 13:01-0400 BP Diastolic 90 mm[Hg] [facility] Work Phone: 11-30-2012 13:01-0400 BP Systolic 122 mm[Hg] [facility] Work Phone: 11-30-2012 13:01-0400 Pulse (Heart Rate) 78 /min [facility] Work Phone: 11-30-2012 13:01-0400 Respiratory Rate 20 /min [facility] ter [facility] Work Phone: 11-30-2012 13:01-0400 Weight 134.27 kg [facility] Work Phone: 06-22-2011 14:05-0500 Body Temperature 98.9 [degF] [facility] Work Phone: 06-22-2011 14:05-0500 BSA (Body Surface Area) 2.51 m2 [facility] Work Phone: 06-22-2011 14:05-0500 Pulse Oximetry 95 % [facility] Work Phone: 05-30-2011 13:44-0500 Height 182.88 cm [facility] Work Phone: Encounters Encounter Date Encounter Type Care Provider Facility Start: 02-11-2025 End: 02-11-2025 [facility] Facility[facility] Start: 02-11-2025 End: 02-11-[address] Omer Wray MD -[facility] Work Phone: Start: 2025 End: 2025 [facility] Facility:[facility] Start: 2025 End: [address] [facility] Work [facility]: Start: 01-27-2025 End: 01-27-2025 Admission to same day surgery center Dr. Omer Wray MD -Gear Cutting Machine Operator/Special Procedures Work Phone: Start: 01-27-2025 End: [facility] Start: 01-26-2025 Non-patient / Non-visit Dr. Juana christopher MD -[facility] Work Phone: Start: 01-25-2025 [facility] Facility[facility] Start: 01-25-2025 End: 01-26-2025 Evaluation and management of inpatient Dr. Juana Rodriguez MD -Progressive Care Unit Work Phone: Start: 01-18-2025 End: 01-18-2025 [facility] Start: 01-18-2025 End: 01-18-[address] [facility] Work [facility]: Start: 01-14-2025 End: 01-14-2025 [facility] Start: 01-14-2025 End: 01-14-[address] [facility] Work [facility]: Start: 01-13-2025 End: 01-13-2025 Patient encounter [facility] Work Phone: Start: 01-13-2025 End: 01-13-2025 [facility] Start: 12-19-2024 End: 12-19-2024 [facility] Start: 12-19-2024 End: 12-19-[address] [facility] Work [facility]: Start: 12-16-2024 Visit out of hours Broderick banegas MD Work Phone: [employer] Work Phone: Start: 12-16-2024 In-person encounter Broderick gomez MD Work Phone: [facility] Work Phone: Start: 12-12-2024 ambulatory OMER WRAY Facility: [facility] Start: 12-12-2024 End: 12-12-2024 Subsequent hospital visit by physician Mri [facility] (I-Stat/Lg Bore/1.5t) [facility] Start: 11-01-2024 End: 11-01-2024 Office outpatient visit 25 minutes Denny Cifuentes MD Work Phone: [facility] Comment on above: Erectile dysfunction , unspecified erectile dysfunction type (Primary Dx) Start: 11-01-2024 End: 11-01-2024 Orders Only Denny Cifuentes MD Work Phone: [facility] Comment on above: Erectile dysfunction , unspecified erectile dysfunction type (Primary Dx) Start: 10-24-2024 End: 10-24-[address] Qamar Carroll Work Phone: -Cardiovascular Services Start: 10-24-2024 End: 10-24-2024 Patient encounter procedure Evelyn Deleon FORMULA ROOM WORKER-C -Cardiovascular Services Work Phone: Start: 10-24-2024 ambulatory [facility] Facility:[facility] Start: 10-24-2024 Non-patient / Non-visit [facility]. Handy UGALDE -[facility] Start: 10-24-2024 End: 10-24-2024 ambulatory Evelyn Deleon NP Facility:[facility] Start: 09-19-2024 End: 09-19-[address] Omer Wray MD Work Phone: [facility] Work Phone: Start: 09-19-2024 End: 09-19-[address] Omer Wray MD -[facility] Work Phone: Start: 09-18-2024 End: 09-18-[address] Omer Wray MD Work Phone: [facility] Work Phone: Start: 09-18-2024 End: 09-18-2024 Patient encounter procedure Evelyn Deleon FORMULA ROOM WORKER-C -Laboratory Work Phone: Start: 09-18-2024 End: 09-18-2024 Patient encounter procedure Evelyn Deleon FORMULA ROOM WORKER-C -[facility] Work Phone: Start: 09-18-2024 End: 09-18-[address] Omer Wray MD Work Phone: [facility] Work Phone: Start: 09-18-2024 End: 09-18-2024 ambulatory Evelyn Deleon FORMULA ROOM WORKER Facility:[facility] Start: 08-13-2024 End: 08-13-2024 Emergency department patient visit Dr. Qamar Rosario DO -Emergency Department Work Phone: Start: 06-13-2024 End: 06-13-2024 ambulatory [facility] Start: 06-13-2024 End: 06-13-[address] Omer Wray MD -[facility] Work Phone: Start: 06-04-2024 ambulatory [place] [facility] Start: 05-15-2024 End: 05-15-2024 ambulatory Evelyn Deleon FORMULA ROOM WORKER Facility:[facility] Start: 05-15-2024 End: 05-15-2024 ambulatory Evelyn Deleon FORMULA ROOM WORKER Facility:[facility] Start: 04-26-2024 End: 05-24-2024 ambulatory [facility] Facility:[facility] Start: 04-18-2024 End: 04-18-2024 Emergency department patient visit Qamar Rosario Facility:[facility] Start: 04-16-2024 End: 04-16-2024 ambulatory OMER WRAY Facility:[facility] Start: 04-10-2024 End: 04-23-2024 ambulatory Omer Erwinori Facility:[facility] Start: 03-20-2024 End: 03-23-2024 ambulatory [place] [facility] Facility:[facility] Start: 03-13-2024 End: 03-13-2024 ambulatory [place] [facility] Start: 03-04-2024 End: 03-04-2024 Telephone encounter Phillip Diamond MD Work Phone: Cardiology Comment on above: Patient Update Start: 03-01-2024 End: 03-01-2024 ambulatory [facility] Facility:[facility] Start: 02-28-2024 End: 02-28-2024 [facility] Facility:[facility] Start: 02-19-2024 End: 02-19-2024 [facility] Start: 02-06-2024 End: 02-06-2024 Patient encounter procedure Liz Madsen APRN.OPERATING SYSTEMS PROGRAMMER Work Phone: Cardiothoracic Comment on above: S/P MVR (mitral valv e repair) (Primary Dx); S/P TVR (tricuspid valve repair); S/P Maze operation for atrial fibrillation; Cardiac pacemaker in situ Start: 02-06-2024 End: 02-06-2024 harlan DIAMOND Facility:[facility] Start: 02-06-2024 End: 02-06-2024 Subsequent hospital visit [...] status A Tunde Diamond MD Work Phone: [facility] Start: 01-22-2024 End: 01-22-2024 Admission to same day surgery center Anesthesia Clearance Work Phone: [facility] Work Phone: Start: 01-22-2024 End: 01-22-2024 Patient [...] (dyspnea on exertion); PAF (paroxysmal atrial fibrillation) ([facility]); Mitral valve prolapse Start: 01-19-2024 End: 01-19-2024 Preprocedural examination done Moiz Koenig MD Work Phone: [facility] Work Phone: Start: 01-19-2024 End: 01-19-2024 Subsequent hospital visit by physician Vangie Manzano (I-Stat) Work Phone: Radiology Comment on above: 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] Start: 01-19-2024 End: 01-19-2024 Patient encounter status Moiz Koenig MD Work Phone: [facility] Start: 01-19-2024 End: 01-19-2024 Subsequent hospital visit by physician Dk Scott J1 Work Phone: Radiology Comment on above: 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] Start: 01-18-2024 Patient encounter status Pulm J-1 [facility] Start: 12-06-2023 Patient encounter status A Cee Diamond MD Work Phone: [facility] Start: 12-06-2023 Telephone encounter A Tunde ace MD Work Phone: Cardiothoracic Comment on above: Referral Information ; Pre-Op CTHO Consult; Cardiac Preop Checklist Start: 07-10-2023 End: 07-11-2023 ambulatory UNKNOWN PROVIDER Facility:[facility] Start: 07-10-2023 End: 07-10-2023 Subsequent hospital visit by physician Chelsie Nieves APRN-NADEEN Other Phone: [facility] Comment on above: Dyspnea, unspecified type Start: 04-03-2023 Non-patient / Non-visit Dr. Brando Mcdonough Work Phone: [facility] Start: 04-03-2023 End: 04-03-2023 Admission to same day surgery center Dr. Asad Mcdonough Work Phone: [facility] Start: 04-03-2023 End: 04-03-[address] Asad Mcdonough Work Phone: [facility] Work Phone: Start: 03-29-2023 End: 03-29-[address] Asad Mcdonough Work Phone: [facility] Work Phone: Start: 03-29-2023 End: 03-29-[address] Asad Mcdonough Work Phone: [facility] Work Phone: Start: 03-22-2023 End: 03-22-[address] Asad Mcdonough Work Phone: [facility] Work Phone: Start: 02-01-2023 End: 02-01-[address] Asad Mcdonough Work Phone: [facility] Work Phone: Start: 01-03-2023 End: 01-03-[address] Asad Mcdonough Work Phone: [facility] Work Phone: Start: 12-20-2022 Non-patient / Non-visit Dr. Brando Mcdonough Work Phone: [facility] Work Phone: Start: 12-19-2022 End: 12-20-2022 Evaluation and management of inpatient Dr. Asad Mcdonough Work Phone: [facility] Work Phone: Start: 12-19-2022 End: 12-20-[address] Asad Mcdonough Work Phone: [facility] Work Phone: Start: 12-19-2022 Non-patient / Non-visit Dr. Brando Mcdonough Work Phone: [facility] Start: 03-07-2021 End: 03-07-2021 Emergency department patient visit NAEL LAN [facility] Start: 12-09-2020 ambulatory EDNA Shelby cility:[facility] Start: 03-07-2016 End: 03-08-2016 Ambulatory JANI SERRANO Facility:[facility] Procedures Date Procedure Procedure Detail Performing Clinician Start: 01-26-2025 Estimated creatinine clearance [facility] Start: 01-25-2025 [facility] Start: 01-25-2025 SARS-CoV-2, Influenz a & RSV (PCR) [facility] Start: 01-25-2025 Radiologic exam ches t 2 views [facility] Start: 01-13-2025 Urnls dip stick/tabl et reagent auto microscopy [facility] Start: 12-16-2024 Blood pressure withi n normal parameters - no follow-up required Broderick Bundy MD Work Phone: Start: 12-16-2024 BMI outside of erica l parameters - no follow-up plan/reason not given Broderick Bundy MD Work Phone: Start: 12-16-2024 Current tobacco non- user cad cap copd pv dm Broderick Bundy MD Work Phone: Start: 12-16-2024 Documentation of cur rent medications Broderick Bnudy MD Work Phone: Start: 12-16-2024 Pain assessment [...] in persn dual ld pacer Edwin Self ETCHER MACHINE.OPERATING SYSTEMS PROGRAMMER Work Phone: Start: 01-19-2024 Co diffusing capacity Phillip Diamond MD Work Phone: Start: 01-19-2024 CTA CHEST/ABD/PEL (G ATED) W IVCON Phillip Diamond MD Work Phone: Start: 01-19-2024 Creatinine [Mass/vol ume] in Serum or Plasma [facility] Start: 01-19-2024 Radiologic exam ches t 2 views Phillip Diamond MD Work Phone: Start: 07-10-2023 Radiologic exam ches t 2 views Chelsie Nieves ETCHER MACHINE-OPERATING SYSTEMS PROGRAMMER Other Phone: Start: 04-03-2023 Lap Robotic Umb/Vent [...] abdomen and pelvis with intravenous contrast Dr. Aasd Mcdonough Work Phone: Start: 11-25-2019 Colonoscopy Chelsie Farfancesar on ETCHER MACHINE-OPERATING SYSTEMS PROGRAMMER Other Phone: Start: 09-07-2016 End: 09-07-2016 Documentation [...] PA-C Work Phone: Start: 11-30-2012 End: 11-30-2012 CAR REPAIRMAN Renuka Georges PA-C Work Phone: Start: 11-30-2012 [...] Screening for malignant neoplasm of colon [facility] Start: 02-05-2027 Diabetes Screening Diabetes Screening [facility] Start: 01-28-2027 Diabetes Screening Diabetes Screening [facility] Start: 01-24-2027 Diabetes Screening Diabetes Screening [facility] Start: 01-18-2027 Diabetes Screening Diabetes Screening [facility] Start: 08-22-2025 DTaP/Tdap/Td Vaccines (3 - Td or Tdap) DTaP/Tdap/Td Vaccines (3 - Td or Tdap) [facility] Start: 08-22-2025 Urine microalbumin profile DTaP,Tdap,Td Vaccine (3 - Td or Tdap) [facility] Start: 08-10-2025 Tetanus vaccination Tetanus (Td or Tdap) Booster [facility] Start: 08-10-2025 Urine microalbumin profile DTaP,Tdap,Td Vaccine (2 - Td or Tdap) [facility] Start: 02-05-2025 BP Controlled (<130/80) BP Controlled (<130/80) [facility] Start: 01-27-2025 Catheterization of left heart [facility] Start: 01-26-2025 End: 01-27-2025 Patient discharge [facility] Start: 01-25-2025 Following clinical pathway protocol [facility] Start: 01-25-2025 Assessment of risk of venous thromboembolism [facility] Start: 01-25-2025 Incentive spirometry [facility] Start: 01-25-2025 Inhalation therapy procedure [facility] Start: 01-25-2025 Insertion of catheter into peripheral vein [facility] Start: 01-25-2025 Measuring intake and output [facility] Start: 01-25-2025 Providing care according to standard [facility] Start: 01-25-2025 Provision of activity privileges [facility] Start: 01-25-2025 [facility] Start: 01-25-2025 Admission procedure [facility] Start: 01-25-2025 [facility] Start: 01-25-2025 Continuous positive airway pressure ventilation treatment [facility] Start: 01-18-2025 BP Controlled (<130/80) BP Controlled (<130/80) [facility] Start: 01-13-2025 End: 01-13-2025 Evaluation of diagnostic study results [facility] Start: 12-23-2024 Influenza vaccination Influenza Vaccine (#1) [employer] Start: 08-13-2024 [facility] Start: 04-24-2024 Advance Directive Discussion Advance Directive Discussion [facility] Start: 03-07-2024 Diabetes Screening Diabetes Screening [facility] Start: 02-06-2024 End: 02-06-2024 Follow-up encounter 02/06/2024 8:45 AM EDT Results Only Cardiology [address] [place] [address] Surgery Follow Up Cardiology Comment on above: Surgery Follow Up Start: 02-06-2024 End: 02-06-2024 ambulatory 02/06/2024 8:30 AM EDT Results Only [place] [id number] [place] [address] CBC CMP Main [facility] J1-4 Draw Station Comment on above: CBC CMP Start: 02-06-2024 End: 02-06-2024 Patient encounter procedure Radiology Comment on above: Surgery Follow Up Hospital Discharge J 08-22-20 Start: 01-23-2024 End: 01-23-2024 Admission to same day surgery center 01/23/2024 12:20 PM EDT - 01/23/2024 5:00 PM EDT Surgery Admitting [address] [place] [address] Phillip Diamond MD [address] [place] [address] MVr +/- MAZE ?Robot (2) Admitting Comment [...] 01/23/2024 3:50 PM EDT Surgery Admitting [address] [place] [address] Phillip Diamond MD [address] [place] [address] MVr +/- MAZE ?Robot (2) Admitting Comment [...] 11:10 AM EDT Hospital Encounter Admitting [address] [place] [id number] Phillip Diamond MD [address] [place] [address] Disorder of artery or arteriole [...] Mitral valve disorder 01/23/2024 11:10 AM EDT [facility] Start: 01-23-2024 End: 01-23-2024 Admission to same day surgery center 01/23/2024 6:30 AM EDT - 01/23/2024 11:10 AM EDT Surgery Admitting [address] [place] [id number] Phillip Diamond MD [address] [place] [address] MVr +/- MAZE ?Robot (2) Admitting Comment on above: MVr +/- MAZE ?Robot (2) Start: 01-23-2024 End: 01-23-2024 Anesthesia consultation 01/23/2024 6:30 AM EDT Anesthesia Event Admitting [address] [id number] Willow Armas SRNA Admitting Start: 01-23-2024 End: 01-23-2024 Maze procedure for atrial fibrillation FULL MAZE W/ CARDIOPULMONARY BYPASS Disorder of artery or arteriole (HCC) Pre-operative cardiovascular examination Atrial fibrillation, unspecified type (HCC) Mitral valve disorder 01/23/2024 6:30 AM EDT [facility] Start: 01-23-2024 Subsequent hospital visit by physician 01/23/2024 6:30 AM EDT Hospital Encounter Admitting [address] [place] [address] Phillip Diamond MD [address] [place], [place] [id number] Disorder of artery or arteriole (HCC) [I77.9], [...] Vaccine ( season) Covid-19 Vaccine ( season) [facility] Start: 12-24-2023 Influenza vaccination Influenza Vaccine (#1) [facility] Start: 12-08-2023 End: 03-08-2024 aPTT in Platelet poor plasma by Coagulation assay ACTIVATED PARTIAL THROMBOPLASTIN TIME Lab Routine Disorder of artery or arteriole (HCC) Pre-operative cardiovascular examination Atrial fibrillation, unspecified type (HCC) Mitral valve disorder Expected: 12/08/2023 (Approximate), Expires: 03/08/2024 [facility] Comment on above: Expected: 12/08/2023 (Approximate), Expi res: 03/08/2024 Start: 12-08-2023 End: 03-08-2024 CBC W Auto Differential panel - Blood COMPLETE BLOOD COUNT AND DIFFERENTIAL Lab Routine Disorder of artery or arteriole (HCC) Pre-operative cardiovascular examination Atrial fibrillation, unspecified type (HCC) Mitral valve disorder Expected: 12/08/2023, Expires: 03/08/2024 [facility] Comment on above: Expected: 12/08/2023, Expires: Start: 12-08-2023 End: 03-08-2024 Comprehensive metabolic 2000 panel - Serum or Plasma COMPREHENSIVE METABOLIC PANEL Lab Routine Disorder of artery or arteriole (HCC) Pre-operative cardiovascular examination Atrial fibrillation, unspecified type (HCC) Mitral valve disorder Expected: 12/08/2023, Expires: 03/08/2024 [facility] Work Phone: Comment on above: Expected: 12/08/2023, Expires: Start: 12-08-2023 End: 03-08-2024 CONFIRM BLOOD TYPE CONFIRM BLOOD TYPE Blood Bank Routine Disorder of artery or arteriole (HCC) Pre-operative cardiovascular examination Atrial fibrillation, unspecified type (HCC) Mitral valve disorder Expected: 12/08/2023, Expires: 03/08/2024 [facility] Comment on above: Expected: 12/08/2023, Expires: Start: 12-08-2023 End: 03-08-2024 Lactate dehydrogenase [Enzymatic activity/volume] in Serum or Plasma LACTATE DEHYDROGENASE Lab Routine Disorder of artery or arteriole (HCC) Pre-operative cardiovascular examination Atrial fibrillation, unspecified type (HCC) Mitral valve disorder Expected: 12/08/2023, Expires: 03/08/2024 [facility] Comment on above: Expected: 12/08/2023, Expires: Start: 12-08-2023 End: 03-08-2024 PT panel - Platelet poor plasma by Coagulation assay PROTHROMBIN TIME Lab Routine Disorder of artery or arteriole (HCC) Pre-operative cardiovascular examination Atrial fibrillation, unspecified type (HCC) Mitral valve disorder Expected: 12/08/2023 (Approximate), Expires: 03/08/2024 [facility] Comment on above: Expected: 12/08/2023 (Approximate), Expi res: 03/08/2024 Start: 12-08-2023 End: 03-08-2024 TYPE AND SCREEN,30 DAY TYPE AND SCREEN,30 DAY Blood Bank Routine Disorder of artery or arteriole (HCC) Pre-operative cardiovascular examination Atrial fibrillation, unspecified type (HCC) Mitral valve disorder Expected: 12/08/2023, Expires: 03/08/2024 [facility] Comment on above: Expected: 12/08/2023, Expires: Start: 12-08-2023 End: 03-08-2024 URINALYSIS, DIPSTICK ONLY URINALYSIS, DIPSTICK ONLY Lab Routine Disorder of artery or arteriole (HCC) Pre-operative cardiovascular examination Atrial fibrillation, unspecified type (HCC) Mitral valve disorder Expected: 12/08/2023, Expires: 03/08/2024 [facility] Comment on above: Expected: 12/08/2023, Expires: Start: 04-24-2023 Advance Directive Discussion Advance Directive Discussion [facility] Start: 04-03-2023 Patient discharge [facility] Start: 12-23-2022 Covid-19 Vaccine ( season) Covid-19 Vaccine () [facility] Start: 12-23-2022 COVID-19 Vaccine ( season) COVID-19 [facility]ine ( season) [facility] Start: 12-23-2022 Influenza vaccination Influenza Vaccine (#1) [facility] Start: 12-20-2022 Patient discharge [facility] Start: 12-19-2022 Application of intermittent pneumatic compression device [facility] Start: 12-19-2022 Following clinical pathway protocol [facility] Start: 12-19-2022 Measuring intake and output [facility] Start: 12-19-2022 Incentive spirometry [facility] Start: 12-19-2022 [facility] Start: 12-19-2022 Application of ice collar, cap or bag [facility] Start: 12-19-2022 Elevation of head of bed [facility] Start: 12-19-2022 Admission procedure [facility] Start: 12-19-2022 Anesthesia hernia repair upper abdomen nos ANESTH REPAIR OF HERNIA [facility] Start: 12-19-2022 RPR AA HRN 1ST < 3 CM RDC RPR AA HRN 1ST < 3 CM RDC [facility] Start: 2022 Pneumococcal vaccination Pneumococcal Vaccine(s) (65+ yrs) (1 of 1 - PCV) [facility] Start: 2022 Pneumococcal Vaccine: 65+ (2 of 2 - PPSV23 or PCV20) Pneumococcal Vaccine: 65+ (2 of 2 - PPSV23 or PCV20) [facility] Start: 01-22-2022 Medicare Annual Wellness Visit Medicare Annual Wellness Visit [facility] Start: 11-24-2020 Screening for malignant neoplasm of colon [facility] Start: 2017 Hepatitis B (HBV) Vaccine (optional start 60+ years) Hepatitis B (HBV) Vaccine (optional start 60+ years) [facility] Start: 2017 RSV Immunization for Adults (1 - Risk 60-74 years 1-dose series) RSV Immunization for Adults (1 - Risk 60-74 years 1-dose series) [facility] Start: 2017 RSV Vaccine (1 - 1-dose 60+ series) RSV Vaccine (1 - 1-dose 60+ series) [facility] Start: 2017 RSV Vaccine (1 - Risk 60-74 years 1-dose series) RSV Vaccine (1 - Risk 60-74 years 1-dose series) [facility] Start: 2017 RSV vaccine (optional 60+ years) RSV vaccine (optional 60+ years) [facility] Start: 09-13-2016 End: 09-13-2016 Appointment Appointment [facility] Work Phone: Start: 09-07-2016 End: 09-07-2016 Appointment Appointment [facility] Work Phone: Start: 11-30-2012 End: 11-30-2012 *BMP *BMP [facility] Work Phone: Start: 11-30-2012 End: 11-30-2012 24 hour holter monitor 24 hour holter monitor [facility] Work Phone: Start: 11-30-2012 End: 11-30-2012 BNP *Brain Natriuretic Peptide BNP [facility] Work Phone: Start: 11-30-2012 End: 11-30-2012 CBC W Auto Differential panel - Blood *CBC without Diff [facility] Work Phone: Start: 11-30-2012 End: 11-30-2012 CAR REPAIRMAN CAR REPAIRMAN [facility] Work Phone: Start: 11-30-2012 End: 11-30-2012 Echocardiography Echocardiogram (complete) [facility] Work Phone: Start: 11-30-2012 End: 11-30-2012 Electrocardiogram, complete EKG (In office) [facility] Work Phone: Start: 11-30-2012 End: 11-30-2012 Follow Up Appt 6 months Follow Up Appt 6 months [facility] Work Phone: Start: 11-30-2012 End: 11-30-2012 Thyroid stimulating hormone (TSH) *TSH [facility] Work Phone: Start: 02-11-2012 Prostate specific antigen measurement Prostate Cancer Screening Discussion [facility] Start: 11-16-2011 End: 11-16-2011 Follow Up Appt 1 year Follow Up Appt 1 year [facility] Work Phone: Start: 2007 Shingles (RZV) Vaccine (1 of 2) Shingles (RZV) Vaccine (1 of 2) [employer] [facility] Start: 2007 Shingrix Vaccine (1 of 2) Shingrix Vaccine (1 of 2) [facility] Start: 2002 Prostate specific antigen measurement Prostate Cancer Screening Discussion [facility] Start: 2002 Screening for malignant neoplasm of colon [facility] Start: 02-11-1992 Lipid panel [facility] Start: 02-11-1976 Hepatitis A (HAV) Vaccine (optional start 19+ years) Hepatitis A (HAV) Vaccine (optional start 19+ years) [facility] Start: 02-11-1976 Tetanus vaccination Tetanus (Td or Tdap) Booster [facility] Start: 1975 Annual PCP Team Chronic Disease Visit Annual PCP Team Chronic Disease Visit [facility] Start: 1975 Anxiety Screening Anxiety Screening [facility] Start: 1975 Depression Screening Depression Screening [facility] Start: 1975 Diabetes mellitus screening Diabetes Screening [facility] Start: 1975 Hepatitis C screening [facility] Start: 1975 Tetanus + diphtheria + acellular pertussis vaccine (product) Tdap Booster [facility] Start: 1969 Depression Screening Depression Screening [facility] Start: 1957 Abdominal aortic aneurysm screening Abdominal Aortic Aneurysm Screening [facility] Start: 1957 Lipid panel Lipid Panel [facility] Start: 1957 Medicare Annual Wellness (AWV) Medicare Annual Wellness (AWV) [facility] Start: 1957 Screening for malignant neoplasm of colon [facility] Basic metabolic 2008 panel with ionized calcium - Serum or Plasma [facility] CARDIAC IMPLANTABLE DEVICE CHECK CARDIAC IMPLANTABLE DEVICE CHECK PACEART Routine Pacemaker reprogramming/check 1 Occurrences starting 12/12/2023 [facility] Comment on above: 1 Occurrences starting 12/12/2023 End: 01-19-2024 CARDIAC IMPLANTABLE DEVICE CHECK CARDIAC IMPLANTABLE DEVICE CHECK PACEART Routine Pacemaker reprogramming/check 1 Occurrences starting 01/19/2024 until 01/19/2024 [facility] Comment on above: 1 Occurrences starting 01/19/2024 until 01/19/2024 End: 01-06-2025 CTA Chest vessels and Abdominal vessels and Pelvis vessels W contrast IV CTA CHEST/ABD/PEL (GATED) W IVCON Radiology Routine Disorder of artery or arteriole (HCC) Pre-operative cardiovascular examination Atrial fibrillation, unspecified type (HCC) Mitral valve disorder 1 Occurrences starting 12/08/2023 until 01/06/2025 [facility] Comment on above: 1 Occurrences starting 12/08/2023 until 01/06/2025 End: 12-07-2024 ECG COMPLETE ECG COMPLETE ECG Routine Disorder of artery or arteriole (HCC) Pre-operative cardiovascular examination Atrial fibrillation, unspecified type (HCC) Mitral valve disorder 1 Occurrences starting 12/08/2023 until 12/07/2024 [facility] Comment on above: 1 Occurrences starting 12/08/2023 until 12/07/2024 End: 12-07-2024 Echocardiography ECHO Cardiology Routine Disorder of artery or arteriole (HCC) Pre-operative cardiovascular examination Atrial fibrillation, unspecified type (HCC) Mitral valve disorder 1 Occurrences starting 12/08/2023 until 12/07/2024 [facility] Comment on above: 1 Occurrences starting 12/08/2023 until 12/07/2024 Electronic analysis antitachy pacemaker system [employer] Cardiology Routine Disorder of artery or arteriole (HCC) Pre-operative cardiovascular examination Atrial fibrillation, unspecified type (HCC) Mitral valve disorder Ordered: 12/08/2023 [facility] Comment on above: Ordered: 12/08/2023 End: 01-06-2025 LUNG DIFFUSION CAPACITY (DLCO) LUNG DIFFUSION CAPACITY (DLCO) PFT Routine Disorder of artery or arteriole (HCC) Pre-operative cardiovascular examination Atrial fibrillation, unspecified type (HCC) Mitral valve disorder 1 Occurrences starting 12/08/2023 until 01/06/2025 [facility] Comment on above: 1 Occurrences starting 12/08/2023 until 01/06/2025 LUNG DIFFUSION CAPAC ITY (DLCO) LUNG DIFFUSION CAPACITY (DLCO) PFT Routine Disorder of artery or arteriole (HCC) Pre-operative cardiovascular examination Atrial fibrillation, unspecified type (HCC) Mitral valve disorder 01/19/2024 2:35 PM EDT [facility] Work Phone: Natriuretic peptide. B prohormone N-Terminal [Mass/volume] in Serum or Plasma [facility] Patient Education [facility] Work Phone: Patient referral [facility] Work Phone: End: 01-06-2025 SPIROMETRY BASELINE ONLY SPIROMETRY BASELINE ONLY PFT Routine Disorder of artery or arteriole (HCC) Pre-operative cardiovascular examination Atrial fibrillation, unspecified type (HCC) Mitral valve disorder 1 Occurrences starting 12/08/2023 until 01/06/2025 [facility] Comment on above: 1 Occurrences starting 12/08/2023 until 01/06/2025 SPIROMETRY BASELINE ONLY SPIROME TRY BASELINE ONLY PFT Routine Disorder of artery or arteriole (HCC) Pre-operative cardiovascular examination Atrial fibrillation, unspecified type (HCC) Mitral valve disorder 01/19/2024 2:35 PM EDT [facility] Work Phone: [facility] End: 01-06-2025 XR Chest PA and Lateral XR CHEST 2V FRONTAL/LAT Radiology Routine Disorder of artery or arteriole (HCC) Pre-operative cardiovascular examination Atrial fibrillation, unspecified type (HCC) Mitral valve disorder 1 Occurrences starting 12/08/2023 until 01/06/2025 [facility] Comment on above: 1 Occurrences starting 12/08/2023 until 01/06/2025 Immunizations Immunization Date Immunization Notes Care Provider Afsaneh boateng 02-22-2017 pneumococcal conjuga te vaccine, [address] Asad Mcdonough Work Phone: [facility] 08-11-2015 tetanus toxoid, reduced diphtheria toxoid, and acellular pertussis vaccine, adsorbed Phe 4 [employer] Payers Date Payer Category Payer Self-pay [id number] 2022 [facility] DICARE SUPPLEMENT [id number] 2022 Medicare [id number] 2022 Unknown [id number] 1.13.159.2. [id number] 2022 [place] [facility]--[place] [employer] [id number] 2022 Medicare [id number] 2022 Unknown [id number] 2022 Unknown [id number] 2013 Unknown [id number] 2007 Private Health Insurance [facility] [employer] [id number] 2007-Present [phone] [facility] [address] [place] [address] PPO [id number] 1957 Unknown [id number] 06.09.830.1.602721.3.579.2. 903 1957 Unknown [id number] .1.837975.3.579.2. 594 1957 Unknown [id number] .1.484783.3.579.2. 594 Unknown [id number] Unknown [id number] Unknown [id number] 840.1.897640.3.579.2. 462 Unknown [id number] 06.09.830.1.524541.3.579.2. 462 Unknown [id number] 2.840.1.929900.3.579.2. 462 Unknown [id number] 2..840.1.286996.3.579.2. 462 Unknown [id number] 2.16.840.1.084143.3.579.2. 462 Unknown [id number] 2.840.1.512254.3.579.2. 462 Unknown [id number] 2.840.1.665892.3.579.2. 462 Unknown [id number] 2.840.1.171471.3.579.2. 462 Unknown [id number] 2.840.1.464290.3.579.2. 462 Unknown [id number] 2.840.1.172448.3.579.2. 462 Unknown [id number] 2.840.1.406534.3.579.2. 462 Unknown [id number] 2.840.1.206621.3.579.2. 462 Unknown [id number] 2.840.1.977816.3.579.2. 462 Unknown [id number] 2.840.1.340611.3.579.2. 462 Unknown [id number] 2.840.1.771677.3.579.2. 462 Unknown [id number] .840.1.436673.3.579.2. 462 Unknown [id number] .840.1.926909.3.579.2. 462 Unknown [id number] 2.840.1.326878.3.579.2. 462 Unknown [id number] 2.840.1.166222.3.579.2. 462 Unknown [id number] 2.840.1.613659.3.579.2. 462 Unknown [id number] 2.840.1.031390.3.579.2. 462 Unknown [id number] 2.16.840.1.708059.3.579.2. 462 Unknown [id number] 2.16.840.1.340969.3.579.2. 462 Unknown [id number] 2.16.840.1.716364.3.579.2. 462 Unknown [id number] 2.16.840.1.676294.3.579.2. 462 Unknown [id number] 2.16.840.1.436305.3.579.2. 462 Unknown [id number] 2.16.840.1.465857.3.579.2. 462 Unknown [id number] 2.16840.1.078882.3.579.2. 462 Unknown [id number] 2.840.1.957961.3.579.2. 462 Unknown [id number] Unknown [id number] Social History Date Type Detail Facility Start: 12-19-2022 End: 03-22-2023 Tobacco smoking status MOIS Unknown if ever smoked [facility] Start: 06-11-2018 None [facility] Start: 07-21-2017 Spouse/ Significant Other [facility] Start: 07-21-2017 Non-smoker [facility] Start: 1955 Sex Assigned At Male [facility] Tobacco smoking stat us MOIS Never smoked tobacco [facility] Work Phone: Start: 05-31-2006 End: 02-06-2024 Alcohol intake Current drinker of alcohol (finding) [facility] Start: 10-29-2021 End: 01-15-2024 History of Social function [facility] Work Phone: Start: 10-29-2021 End: 12-16-2024 Area Deprivation Index [facility] Work Phone: Start: 12-02-2012 National Score (1-100), lower number is lower risk 59 [facility] Work Phone: Start: 1955 Sex Assigned At Not on file [facility] Work Phone: Start: 01-19-2024 End: 01-27-2025 Tobacco smoking status NHIS Ex-smoker [facility] Start: 1977 End: 1973 History of tobacco use Current smoker [facility] Start: 1977 End: 1973 History of tobacco use Cigarette Smoker [facility] History of tobacco use Passive smoker [facility] Start: 01-19-2024 Tobacco use and exposure Former smokeless tobacco user [facility] End: 02-11-2000 History of tobacco use Chews Tobacco [facility] Start: 11-22-2021 Sex Male (finding) [facility] Procedure Code Equipment Code Equipment Original Text Equipment Identifier Dates [id number]_[facility] Start : 11-22-2017 [id number]_[facility] Start : 11-22-2017 [id number]_[facility] Start : 12-01-2017 Clip Atriclip Gillinov-Arlette 180d Long 35mm 25mm Internal Head - [id number] Start: 01-23-2024 [place] Thk1.65mm P tfe 4x.5in Cardiovascular Sterile - [id number]_[facility] Start: 01-23-2024 Band Suazo Ancor e 33mm Annuloplasty Chordal Guide - [id number]_[facility] Start: 01-23-2024 Band Suazo Ancor e 31mm 77mm Annuloplasty Chordal Guide - [id number]_[facility] Start: 01-23-2024 ([id number]) Extra-gynaecolog ical surgical mesh, composite-polymer [id number] FDA Start: 04-03-2023 Dual-chamber implantable pacemaker, rate-responsive ()[id number] FDA Start: 01-27-2025 Goals Date Patient Goal Desired Activity /State Personal health goal Functional Status Date Assessment Result Facility 01-26-2025 Functional status Ambulates [facility] Work Phone: 12-16-2024 Functional Status right [facility] Work Phone: 12-16-2024 dependent [facility] Work Phone: 01-29-2024 Are you deaf, or do you have serious difficulty hearing No 01/29/2024 4:28 PM EDT Melida Eldridge, MICHAEL No [facility] 01-29-2024 Are you blind, or do you have serious difficulty seeing, even when wearing glasses No 01/29/2024 4:28 PM EDT Melida Eldridge RN No [facility] 01-29-2024 Do you have serious difficulty walking or climbing stairs No 01/29/2024 4:28 PM EDT Melida Eldridge, MICHAEL No [facility] 01-29-2024 Do you have difficul ty dressing or bathing No 01/29/2024 4:28 PM EDT Melida Eldridge, MICHAEL No [facility] 01-29-2024 Because of a physica l, mental, or emotional condition, do you have difficulty doing errands alone such as visiting a physician's office or shopping No 01/29/2024 4:28 PM EDT Melida Elrdidge, MICHAEL No [facility] 12-20-2022 Functional status Up ad raisa [facility] Work Phone: Mental Status Date Assessment Result Facility 01-26-2025 Cognitive function Appropriate [facility] Work Phone: 01-29-2024 Because of a physica l, mental, or emotional condition, do you have serious difficulty concentrating, remembering, or making decisions No 01/29/2024 4:28 PM EDT Melida Eldridge RN No [facility] 04-03-2023 Cognitive function Voice/Name [facility] Work Phone: 12-20-2022 Cognitive function Level Of Cons ciousness Awake;Alert;Appropriate [facility] Work Phone: 12-19-2022 Cognitive function Voice/Name [facility] Work Phone: Clinical Notes 12-19-2022 to 02-11-2025 Note Date & Type Note Facility 02-11-2025 Procedure note [facility] 01-27-2025 Note HNO ID: [id number] Author: ZEINA LIU RN Service: ? Author Type: Registered Nurse Type: Progress Notes Filed: 01/27/2025 08:53 Note Text: Value Based Care Coordination Chart Review Provider Action / FYI: Cancel-OON PCP Upon review of patient chart, the patient is excluded from Transitional Disease Management Patient excluded from TCM outreach: OON PCP Action taken: No action needed Zeina Liu RN January 27, 2025 8:53 AM [facility] 01-27-2025 Note Patient Outreach (AM BC) TRE QUIÑONES ([id number]) 1955 M Date Time Provider Department 01/27/25 ZEINA LIU [facility] During your visit today, we recorded the [...] exertion) [R06.09] 01/19/2024 PAF (paroxysmal atrial fibrillation) ([facility]) [I48*01/19/2024 Mitral valve prolapse [I34.1] 01/19/2024 Postoperative pain [G89.18] 01/23/2024 On mechanically assisted ventilation ([facility]) [Z99*01/23/2024 Stress hyperglycemia [R73.9] 01/23/2024 Anxiety [F41.9] 01/23/2024 Cardiac pacemaker in situ [Z95.0] 01/23/2024 Class 3 severe obesity due to excess calories w*01/23/2024 Severe mitral regurgitation [I34.0] 01/23/2024 Cardiac arrest ([facility]) [I46.9] 01/23/2024 05/27/2024 Cardiac insufficiency following cardiac surgery*01/23/2024 Ex-smoker [Z87.891] 01/25/2024 Ex-tobacco chewer [Z87.891] 01/25/2024 HTN (hypertension) [I10] 01/25/2024 Hypervolemia [E87.70] 01/25/2024 ABLA (acute blood loss anemia) [D62] 01/25/2024 Thrombocytopenia ([facility]) [D69.6] 01/25/2024 Leukocytosis [D72.829] 01/25/2024 Atelectasis [J98.11] 01/26/2024 Chronic diastolic HF (heart failure) ([facility]) [I50*01/29/2024 Encounter for support and coordination of trans*01/29/2024 Encounter Status:Closed by ZEINA LIU on 01/27/25 [facility] 01-26-2025 Discharge summary [facility] 01-26-2025 Discharge summary [facility] 01-26-2025 Note [facility] Medical Records Department [address] [place] [address] Discharge Summary 01/26/25 1152 MR#: [id number] Acct: [id number] Name: TRE QUIÑONES Rep #: [id number] : 1955 69 From: Juana Rodriguez MD PCP: [facility] Status:DIS IN Location: [place] [address] Providers Date of Admission: 01/25/25 Date of Discharge: 01/26/25 [facility] Physician[facility] Reason For Visit: RESPIRATORY DISTRESS SECONDARY [...] procedure, hypertension, JOSÉ MIGUEL who presented to [facility] ED 01/25/25 for several days of increased [...] 43.8, RDW Coeff (more content not included)... [facility] 01-25-2025 History and physi vitaliy note Note Date/Time January 25, 2025 1:36pm [facility] Medical Records Department [address] [place] [address] H&P Exam - Hospitalist 01/25/25 1323 MR#: [id number] Acct: [id number] Name: TRE QUIÑONES Rep #:[id number] : 1955 69 From: Juana Rodriguez MD PCP: [facility] Status:REG ER Location: ED HPI - General General Date of Admission: 01/25/25 Date of Service: 01/25/25 Chief Complaint: SOB HPI Narrative TRE QUIÑONSE, is a 69-year-old male with a history of asthma, A-fib on Xarelto, pacemaker placement, mitral and tricuspid valve replacement, Maze procedure, hypertension, JOSÉ MIGUEL who presented to [facility] ED 01/25/25 for several days of increased [...] breath. Patient denies any lower extremity swelling. [facility] Medical History History of pacemaker [...] % (Auto) 59.5, Lymph % (Auto) 19.7, Cocke % (Auto) 12.1 H, Eos % (Auto) [...] Cardiomegaly with mild vascular congestion. Reading Location: [facility] Assessment & Plan Assessment/Plan (1) Asthma exacerbation: [...] Rodriguez MD Charges/Coding Visit Charges Inpatient E&M: 94399 Init Hosp L2 01/25/25 1336 <Electronically signed by Juana Rodriguez MD> Cosigner Signature (if applicable): CC: Dr. Juana Rodriguez MD; [facility]~ Signed [facility] Work Phone: 1(528) 948-994110-04-2025 Discharge summary Author Raymond Madrid [facility] Note Date/Time January 25, 2025 12 :52pm [facility] Medical Records Department [address] [place] [address] Emergency Department Summary 01/25/25 MR#: [id number] Acct: [id number] Name: TRE QUIÑONES Rep #:[id number] : 1955 69 From: Raymond Madrid MD PCP: [facility] Status:REG ER Location: ED HPI History of [...] % (Auto) 59.5 Lymph % (Auto) 19.7 Cocke % (Auto) 12.1 H Eos % (Auto) [...] Cardiomegaly with mild vascular congestion. Reading Location: [facility] Chest x-ray, 2 views, AP and lateral, [...] Chronic anticoagulation Disposition Disposition: Acute Care Hospital [facility] What to do if you have Problems For any increased pain, shortness of breath, bleeding, nausea or vomiting, chestpain, or any unexpected problems, contact your Primary Care Provider. Call [facility] ([phone]) or report to the closest Emergency Room. Call 911 if necessary. 01/25/25 1252 <Electronically signed by Raymond Madrid MD> Cosigner Signature (if applicable): CC: [facility] ~ Signed [facility] Work Phone: 1(498) 625-886810-04-2025 History and physical note [facility] Medical Records Department [address] [place] [address] H&P Exam - Hospitalist 01/25/25 1323 MR#: [id number] Acct: [id number] Name: TRE QUIÑONES Rep #:[id number] : 1955 69 From: Juana Rodriguez MD PCP: [facility] Status:REG ER Location: ED HPI - General General Date of Admission: 01/25/25 Date of Service: 01/25/25 Chief Complaint: SOB HPI Narrative TRE QUIÑONES, is a 69-year-old male with a history of asthma, A-fib on Xarelto, pacemaker placement, mitral and tricuspid valve replacement, Maze procedure, hypertension, JOSÉ MIGUEL who presented to [facility] ED 01/25/25 for several days of increased [...] breath. Patient denies any lower extremity swelling. [facility] Medical History History of pacemaker [...] % (Auto) 59.5, Lymph % (Auto) 19.7, Cocke % (Auto) 12.1 H, Eos % (Auto) [...] Cardiomegaly with mild vascular congestion. Reading Location: [facility] Assessment & Plan Assessment/Plan (1) Asthma exacerbation: [...] Rodriguez, MD Charges/Coding Visit Charges Inpatient E&M: 10289 Init Hosp L2 01/25/25 1336 Cosigner Signature (if applicable): CC: Dr. Juana Rodriguez MD; [facility]~ Signed [facility]10-04-2025 Discharge summary [facility] Medical Records Department [address] [place] [address] Emergency Department Summary 01/25/25 MR#: [id number] Acct: [id number] Name: TRE QUIÑONES Rep #:[id number] : 1955 69 From: Raymond Madrid MD PCP: [facility] Status:REG ER Location: ED HPI History of [...] % (Auto) 59.5 Lymph % (Auto) 19.7 Cocke % (Auto) 12.1 H Eos % (Auto) [...] Cardiomegaly with mild vascular congestion. Reading Location: [facility] Chest x-ray, 2 views, AP and lateral, [...] Chronic anticoagulation Disposition Disposition: Acute Care Hospital [facility] What to do if you have Problems For any increased pain, shortness of breath, bleeding, nausea or vomiting, chestpain, or any unexpected problems, contact your Primary Care Provider. Call [facility] ([phone]) or report tothe closest Emergency Room. Call 911 if necessary. 01/25/25 1252 Cosigner Signature (if applicable): CC: [facility] ~ Signed [facility]10-04-2025 Radiology Diagnostic study note [facility] Imaging Services [address] [place] [address] Chest PA and Lateral MR#: [id number] Acct: [id number] Name: TRE QUIÑONES Rep #: [id number] : 1955 M 69 From: Christian Jaffe MD PCP: [facility] Status: REG ER Study:Chest PA and Lateral Date of Exam: 01/25/25 Exam# [id number] Ordering Dr: Natacha Madrid MD PROCEDURE: CHEST [...] Cardiomegaly with mild vascular congestion. Reading Location: [id number] CC: Dr. Raymond Madrid MD; [facility] ~ Brim Stiffener: Signed [facility]09-22-2025 Procedure [facility] [address] [place] [address] Pacemaker Check Date of Service: 01/13/251737 MR#: [id number] Acct: [id number] Name: TRE QUIÑONES Rep #: [id number] : 1955 From: Jolene cullen Age/Sex: 69/M [place] [facility] [place]: Signed Billing Codes PM Device Codes: 18525 PM Dev Prog Eval, Dual Assessment and Plan Assessment and Plan (1) long-term current use of anticoagulant: Status: Acute (2) [...] Staples Signature: Date (if applicable) CC: ~ [facility]09-22-2025 Evaluation note* Diagnosis Onset Date Resolution Status Admit Date long-term current use of anticoagulant acute January 13, [...] valve repair chronic January 13, 2025 1:18pm [facility] Work Phone: 1(752) 536-192109-22-2025 Evaluation note* Diagnosis Onset Date Resolution Status Admit Date 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 [place], [place] [address] OFFICE VISIT Date of Service: 01/13/25 MR#: [id number] Acct: [id number] Name: TRE QUIÑONES Rep #: [id number] : 1955 Provider: JOHNNA Deleon Age/Sex: 69/M Location: [facility] Status: Signed HPI HPI History of Present [...] and flutter. He was sent to the [facility]. The more recent evaluation demonstrated areas of atrial flutter in the tricuspid annulus region. He also subsequently had a permanent pacemaker implanted after his radio frequency ablation in 2017. He had started experiencingmore atrial arrhythmias once again and he was sent backto [facility]. It was felt after discussing all the options that the sotalol should be discontinued and he was started on amiodarone. He had been following up at the [facility] due to insurance issues. He had a stress test in 2020. He did have an echocardiogram performed on September 13 at the [facility] and he was recorded to have a moderately dilated left ventricle with estimated ejection fractionof 60 to 65% right ventricle with a pacemaker placed in mitral valve which was normal with severe mitral regurgitation. He had echocardiogram in October 2023 at [facility] that showed ejection fraction of 60% and moderately severe eccentric mitral valve insufficiency. Transesophageal echocardiogram on 11/21/2023 showed severe mitral valve insufficiency. Heart catheterization on 11/21/2023 showed angiographically normal coronary arteries. He was seen with [facility], Dr. Diamond in January 2024. Mitral [...] 1 Y FU (PPM F/U LEANN 1:30) Bill Clerk Required: No Accompanied by: Self Is patient [...] enlarged right atrium, and pulmonary artery systolic [id number] mmHg. He will continue current medical therapy [...] updated, as necessary. Follow Up: 12-15 Months (CAR REPAIRMAN) 6 Months (FORMULA ROOM WORKER/PA) Coding Level of Care Code Off vis,est,level [...] OROPEZA Cosigner Signature: Date (if applicable) CC: [facility]09-22-2025 Progress note Author Evelyn Deleon [facility] Note Date/Time January 13, 2025 2:41pm [facility] [address] [place] [address] OFFICE VISIT Date of Service: 01/13/25 MR#: [id number] Acct: [id number] Name: TRE QUIÑONES Rep #: [id number] : 1955 Provider: JOHNNA Deleon Age/Sex: 69/M Location: [facility] Status: Signed HPI HPI History of Present [...] and flutter. He was sent to the [facility]. The more recent evaluation demonstrated areas of atrial flutter in the tricuspid annulus region. He also subsequently had a permanent pacemaker implanted after his radio frequency ablation in 2017. He had started experiencing more atrial arrhythmias once again and he was sent backto [facility]. It was felt after discussing all the options that the sotalol should be discontinued and he was started on amiodarone. He had been following up at the [facility] due to insurance issues. He had a stress test in 2020. He did have an echocardiogram performed on September 13 at the [facility] and he was recorded to have a moderately dilated left ventricle with estimated ejection fraction of 60 to 65% right ventricle with a pacemaker placed in mitral valve which was normal with severe mitral regurgitation. He had echocardiogram in October 2023 at [facility] that showed ejection fraction of 60% and moderately severe eccentric mitral valve insufficiency. Transesophageal echocardiogram on 11/21/2023 showed severe mitral valve insufficiency. Heart catheterization on 11/21/2023 showed angiographically normal coronary arteries. He was seen with [facility], Dr. Diamond in January 2024. Mitral [...] function 55?5%, mildly dilated right ventricle, #33 [place] mitral valve annuloplasty ring with trace mitral [...] 1 Y FU (PPM F/U LEANN 1:30) Bill Clerk Required: No Accompanied by: Self Is patient [...] enlarged right atrium, and pulmonary artery systolic [id number] mmHg. He will continue current medical therapy [...] updated, as necessary. Follow Up: 12-15 Months (CAR REPAIRMAN) 6 Months (FORMULA ROOM WORKER/PA) Coding Level of Care Code Off vis,est,level [...] <Electronically signed by Evelyn Deleon N P FORMULA ROOM WORKER-C> Date _ Evelyn Deleon NP FORMULA ROOM WORKER-C Cosigner Signature: Date (if applicable) CC: [facility] ~ [facility] Work Phone: 1(330) 276-291108-21-2025 History of Present illness Narrative* Jerardo Porras [...] IMPLANT DATA REVIEWED: Yes MR Conditional CIED [employer] Remote programming PATIENT PRESENTS WITH AN IMPLANTABLE OR ATTACHED CHILD WELFARE DIRECTOR: No RADIOLOGY DEPARTMENT: MR; Exam(s) Completed: Lower MSK: Ankle/Hind Foot, right . Aromatherapy Administered: No PERIPHERAL IV DATA: Not applicable Images approved by Dr. Olivo @11:18 am SIGNED BY: RT Prachi(R) December 12, 2024 10:55 AM documented in this encounterPromedica [facility]08-21-2025 NoteHNO ID: [id number] Author: JERARDO PORRAS RT(R) Service: Radiology Author [...] IMPLANT DATA REVIEWED: Yes MR Conditional CIED [employer] Remote programming PATIENT PRESENTS WITH AN IMPLANTABLE OR ATTACHED CHILD WELFARE DIRECTOR: No RADIOLOGY DEPARTMENT: MR; Exam(s) Completed: Lower MSK: Ankle/Hind Foot, right . Aromatherapy Administered: No PERIPHERAL IV DATA: Not applicable Images approved by Dr. Olivo @11:18 am SIGNED BY: RT Prachi(R) December 12, 2024 10:55 [facility]08-21-2025 NoteHNO ID: [id number] Author: MADY BLUNT RN Service: Nursing Author [...] REVIEWED: YES PROCEDURE: MRI - Conditional Pacemaker [employer] Basket Bottom Machine Operator Device - Settings: VOO 70 bpm Physiologic monitoring per standard operating procedure. See vital sign flowsheet. PATIENT TOLERATED PROCEDURE: Without incident. PATIENT DISCHARGED TO: Home/Self Care SIGNED BY: Mady Blunt [facility]08-21-2025 Procedure note* Mady Blunt RN [...] REVIEWED: YES PROCEDURE: MRI - Conditional Pacemaker [employer] Basket Bottom Machine Operator Device - Settings: VOO 70 bpm Physiologic monitoring per standard operating procedure. See vital sign flowsheet. PATIENT TOLERATED PROCEDURE: Without incident. PATIENT DISCHARGED TO: Home/Self Care SIGNED BY: Mady Blunt RN [facility]08-21-2025 Procedure note* Mady Blunt RN - [...] REVIEWED: YES PROCEDURE: MRI - Conditional Pacemaker [employer] Basket Bottom Machine Operator Device - Settings: VOO 70 bpm Physiologic monitoring per standard operating procedure. See vital sign flowsheet. PATIENT TOLERATED PROCEDURE: Without incident. PATIENT DISCHARGED TO: Home/Self Care SIGNED BY: Mady Blunt RN documented in this encounterPromedica Fostoria [facility] Hospital07-11-2025 History of Present illness Narrative* Denny Cifuentes MD - 11/01/2024 8:50 AM EDT Images from the original note were not included. Denyn Cifuentes MD 11/01/2024 at 12:15 PM OFFICE [...] family history on file. documented in this [facility]05-28-2025 Evaluation note* Diagnosis Onset Date Resolution Status Admit Date Dyspnea on exertion acute August 232024 11:24am S/P mitral valve repair acute M ay 2024 11:24am Atypical atrial flutter chronic M ay 2024 11:24am Essential (primary) hypertension chronic September 18, 2024 11:24am Presence of permanent cardiac pacemaker December 01, 2017 chronic September 18 11:24am S/P tricuspid valve repair chronic September 18, 2024 11:24am [facility] Work Phone: 1([phone]) 213-890811-11-2024 Telephone encounter Note* Telephone Encounter - Mikaela Pantoja RN - 03/04/2024 1:43 PM EST Images from the original note were not included. [facility] Phone Encounter DATE of SERVICE: 03/04/2024 TIME of SERVICE: 1:43 PM Status: PENDING SALE TO [facility] Service/Provider: Cardiac Surgery Tunde Diamond M.D. Reason for call: Shortness of Breath Contact information: [phone] Resolution: Reinforced education Comments: patient called to [...] Resolution: 03/04/2024 Time of Resolution 1:43 PM [facility]11-11-2024 Miscellaneous Notes* Telephone Encounter - Mikaela Pantoja RN - 03/04/2024 1:43 PM EST Images from the original note were not included. [facility] Phone Encounter DATE of SERVICE: 03/04/2024 TIME of SERVICE: 1:43 PM Status: FY Service/Provider: Cardiac Surgery Tunde Diamond M.D. Reason for call: Shortness of Breath Contact information: [phone] Resolution: Reinforced education Comments: patient called to [...] of Resolution 1:43 PM documented in this encounterPromedica Fostoria [facility] Hospital10-15-2024 Instructions* Patient Instructions* Liz Madsen APRN.CNP - 02/06/2024 9:04 AM EDT Follow up with PCP next week with repeat cbc and cmp to monitor trends. Follow up with refuse collector in 4-6 weeks with consideration of repeat echo.Cardiology to determine clearance for return to work and order Cardiac Rehab Phase II if not already given at the time of discharge. No further refills unless specified by local providers. documented in this encounterPromedica Fostoria Community [facility] History of Present illness Narrative* Liz Madsen APRN.CNP - 02/06/2024 9:00 AM EDT Images from the original note were not included. [facility] Department of Cardiovascular Medicine DEPARTMENT [...] and walking - follow up with local Pharmacy Picking Tech for further medical management CXR: 02/06/2024 RESULT: [...] cmp to monitor trends. Follow up with refuse collector in 4-6 weeks with consideration of repeat [...] care Liz Madsen APRN.NADEEN documented in this encounterPromed[facility]10-15-2024 NoteHNO ID: [id number] Author: LIZ MADSEN APRN.NADEEN Service: ? Author Type: Nurse Practitioner Type: Progress Notes Filed: 02/06/2024 17:04 Note Text: [facility] Department of Cardiovascular Medicine DEPARTMENT [...] to bandages/chest tubes/wound and (more content not included)...[facility]10-15-2024 History of Present illness Narrative* Africa [...] PATIENT PRESENTS WITH AN IMPLANTABLE OR ATTACHED CHILD WELFARE DIRECTOR: No RADIOLOGY DEPARTMENT: General X-ray: Exam(s) Completed: Chest X-Ray PERIPHERAL IV DATA: Not applicable SIGNED BY: RT George(Mai) February 06, 2024 8:14 AM documented in this encounterPromedica Fostoria [facility] Hospital10-15-2024 NoteHNO ID: [id number] Author: AFRICA GALVIN RT(Mai) Service: Radiology Author [...] PATIENT PRESENTS WITH AN IMPLANTABLE OR ATTACHED CHILD WELFARE DIRECTOR: No RADIOLOGY DEPARTMENT: General X-ray: Exam(s) Completed: Chest X-Ray PERIPHERAL IV DATA: Not applicable SIGNED BY: RT George(R) February 06, 2024 8:14 [facility]10-09-2024 Telephone encounter Note* Telephone Encounter - [...] Pt instructed to contact 24-hour nurse hotline [phone] for any questions or concerns. Pt verbalized understanding. PD nurse confirmed/verified patient's and full name. All clear, closing statement given. Broderick Ng RN [facility]10-09-2024 Miscellaneous Notes* Telephone Encounter - Broderick Ng [...] Pt instructed to contact 24-hour nurse hotline [phone] for any questions or concerns. Pt verbalized understanding. PD nurse confirmed/verified patient's and full name. All clear, closing statement given. Broderick Ng RN documented in this encounterPromedica Fostoria [facility] Hospital09-30-2024 History of Present illness Narrative* Phillip Diamond MD - 01/22/2024 11:04 AM EDT Images from the original note were not included. [facility] [place] DEPARTMENT OF CARDIAC SURGERY OUTPATIENT VISIT DATE January 22, 2024 OUTPATIENT VISIT SERVICE DATE: 01/22/2024 SERVICE TIME: 11:08 AM PCP: Omer Wray ([facility]) [address] [facility] [address] [place] [address] Referring Physician: Phillip Diamond [facility] [address] Patient Type: New Visit to Determine Surgery: [...] minimal luminal caliber throughout = 12 mm Brim Stiffener[facility] Transcribe Date/Time: Jan 19 2024 10:29A [...] record Phillip Diamond MD documented in this encounterPromedica Fostoria [facility] Hospital09-30-2024 History of Present illness Narrative* Gasper Alejandre, [...] check in for surgery documented in this encounterPromedica Fostoria Community Hospital09-30-2024 History of Present illness Narrative* Jw [...] s/p typical atrial flutter/PAT RFA in 2005 (Sasabe), with redo in 2007, s/p CTI and [...] age 84) Father other ( from [place] effects multiple cancers) Father Prostate Cancer Father [...] 01/19/24 8:50 AM Impression IMPRESSION: See Result. Brim Stiffener: [facility] Transcribe Date/Time: Jan 19 2024 11:03A [...] and consent discussed: yes. Patient / Responsible Constitution Party agrees to proceed: yes Patient / [...] 6:51 AM Pager/Contact #: documented in this encounterPromedica Fostoria Community Hospital09-30-2024 History of Present illness [...] age 82) Father other ( from [place] effects multiple cancers) Father Prostate Cancer Father [...] , Dental Clearance DERM: Denies Dermatological Complaints BAG LINER: dizziness frederick RESP: sob josé miguel CARD: [...] minimal luminal caliber throughout = 12 mm Brim Stiffener: [facility] Transcribe Date/Time: Jan 19 2024 10:29A Dictated by : LUKE JOHNSON MD This examination was interpreted and the report reviewed and electronically signed by: LUKE JOHNSON MD on Jan 19 2024 10:47AM EST MRI: CXR: XR CHEST 2V FRONTAL/LAT Result Date: 01/19/2024 IMPRESSION: See Result. Brim Stiffener[facility] Transcribe Date/Time: Jan 19 2024 11:03A [...] and Physical dated 01/19/2024 documented in this encounterPromedica Fostoria [facility] Hospital09-27-2024 History of Present illness Narrative* Zack Abbasi RRT - 01/19/2024 2:59 PM EDT PULM FUNCTION: Provider: Phillip Diamond MD Spirometry: 1 DLCO: 1 documented in this encounterPromedica Fostoria [facility] Hospital09-27-2024 Instructions* Patient Instructions* Victor Hugo Christian DO - 01/19/2024 1:15 PM EDT Hold off Jardiance prior to surgery documented in this encounterPromedica Fostoria Community Hospital09-27-2024 History of Present illness Narrative* Moiz Koenig MD - 01/19/2024 12:15 PM EDT Images from the original note were not included. [facility] [place] [facility] Department of Cardiovascular Medicine SECTION OF CARDIOVASCULAR IMAGING OUTPATIENT VISIT DATE 01/19/2024 OUTPATIENT VISIT TYPE CONSULTATION REFERRING PHYSICIAN Phillip Diamond [address] [place], [place] [id number] CHIEF COMPLAINT: Pre-operative evaluation. HISTORY OF PRESENT [...] s/p typical atrial flutter/PAT RFA in 2005 (Sasabe), with redo [id number], s/p CTI and atypical atrial flutter RFA [...] age 84) Father other ( from [place] effects multiple cancers) Father Prostate Cancer Father [...] minimal luminal caliber throughout = 12 mm Brim Stiffener: [facility] Transcribe Date/Time: Jan 19 2024 10:29A [...] ICD10: I34.1 Victor Hugo Christian DO Resident [facility] STAFF PHYSICIAN NOTE OF PERSONAL INVOLVEMENT IN CARE Mr. Quiñones has NYHA III symptoms of dyspnea and fatigue due to severe mitral regurgitation related to prolapse and restricted posterior leaflet. He has longstanding AF issues. He has a class I indication for proceeding to proposed mitral valve surgery with Dr. Diamond. If Mr. Quiñones chooses to have [facility], I would be happy to see [...] PHYSICIAN: Moiz Koenig MD documented in this encounterPromedica Fostoria Community Hospital09-27-2024 History of Present illness [...] PATIENT PRESENTS WITH AN IMPLANTABLE OR ATTACHED CHILD WELFARE DIRECTOR: No RADIOLOGY DEPARTMENT: CT; Exam(s) Completed: Cardiac PERIPHERAL IV DATA: Site assessment: Clean,Dry and Intact, Site disposition Discontinued SIGNED BY: RT Ilene(R) January 19, 2024 10:20 AM documented in this encounterPromedica Fostoria [facility] Hospital09-27-2024 History of Present illness [...] PATIENT PRESENTS WITH AN IMPLANTABLE OR ATTACHED CHILD WELFARE DIRECTOR: No RADIOLOGY DEPARTMENT: General X-ray: Exam(s) Completed: Chest X-Ray PERIPHERAL IV DATA: Not applicable SIGNED BY: RT George(R) January 19, 2024 8:50 AM documented in this encounterPromedica Fostoria [facility] Hospital08-16-2024 Telephone encounter Note * Telephone Encounter - Africa Wang RN - 12/08/2023 12:05 PM EDT OPD 01.18, Kiya held . @ [facility], OHS 10.. Please send schedule + Dental [...] if outside cath not ordered- done outside: [facility]- Get Images 11.21.2023 Redo OHS/Robotic surgery/radiation to [...] and general knowledge given to pt n/a [facility]08-16-2024 Miscellaneous Notes* Telephone Encounter - Africa [...] if outside cath not ordered- done outside: [facility]- Get Images 11.21.2023 Redo OHS/Robotic surgery/radiation [...] ordered Valve/TAVR/TEVAR/Myectomy/ascending aorta Dental clearance/Dental Consult at [facility] discussed CABG surgery with previous CABG/varicose vein/vein [...] - 12/06/2023 3:32 PM EDT Records in TextHub, Images on Syngo. To NPM * Telephone Encounter - Yvonne Silva - 12/06/2023 3:32 PM EDT Patient was referred to Dr. Diamond by Dr. Wray for MVR. documented in this encounterPromedica Fostoria [facility] Hospital08-14-2024 Telephone encounter Note * Telephone Encounter - Africa Wang RN - 12/06/2023 4:19 PM EDT To [facility] for review: moderate-severe MR/mild posterior MAC, mild TR, A-Fib/Flutter (ablations 2005, 2017, 2018) [facility]08-14-2024 Telephone encounter Note* Telephone Encounter - Yvonne Silva - 12/06/2023 3:32 PM EDT Records in Epic, Images on Syngo. To NPM [facility]08-14-2024 Telephone encounter Note* Telephone Encounter - Yvonne Silva - 12/06/2023 3:32 PM EDT Patient was referred to Dr. Diamond by Dr. Wray for MVR. [facility]12-11-2023 Discharge summary Author Jerardo Millan [facility] April 03, 2023 11:21am Note Date/Time April 03, 2023 11:18am [facility] Medical Records Department [address] [place] [address] Instructions for Home/Discharge Instructions 04/03/23 1115 MR#: [id number] Acct: [id number] Name: QUIÑONESTRE Imtiaz Rep #:[id number] : 1955 68 From: Jerardo Kitchen PCP: [facility] Status:[facility] Discharge Instructions Diet Discharge Diet: No restrictions [...] Attending Provider: Jerardo Millan Primary Care Provider: [facility] Consulting Providers: Sherif Kiser Instructions Additional Instructions [...] Referrals / Follow Up: Jerardo Millan MD [[facility] Staff - Active Staff] - [facility] Doctor,Out of [Non-Staff] - Disposition Disposition (needs filled in before D/C Order can be placed): Home, Self Care 04/03/23 1121<Electronically signed by Jerardo Millan MD>Jerardo Millan MD CC: Dr. Sherif Kiser MD; [facility] ~ Signed [facility] Work Phone: 1(617) 730-704912-11-2023 History and physical note Author Jerardo Millan [facility] April 03, 2023 7:27am Note Date/Time April 03, 2023 7:27am [facility] Medical Records Department [address] [place] [address] History & Physical Exam 04/03/23 0725 MR#: [id number] Acct: [id number] Name: TRE QUIÑONES Rep #:[id number] : 1955 68 From: Jerardo Kitchen PCP: [place] Status:[facility] Location: [place] [address] History and Physical Date of Admission: 04/03/23 Date of Service: 03/22/23 MR#: [id number] Acct: [id number] Name: TRE QUIÑONES Rep #: [id number] : 1955 Provider: Dr. Jerardo Millan MD Age/Sex: 68/M Location: [facility] Status: Signed Intake Vital Signs 12/20/2319:59 03/22/2308:22 [...] adds that he was doing some riding [employer]ann[employer]he day after his hospital discharge. He states [...] changes are noted:Date of Service: 03/22/23 MR#: [id number] Acct: [id number] Name: TRE QUIÑONES Rep #: [id number] : 1955 Provider: Dr. Jerardo Millan MD Age/Sex: 68/M Location: [facility] Status: Signed Intake Vital Signs 12/20/2319:59 03/22/2308:22 [...] (if applicable): CC: Dr. Jerardo Millan MD; [place] [facility]~ Signed [facility] Work Phone: 1(646) 661-771508-29-2023 Consult note Author Kenzie Hilliard [facility] December 20, 2022 3:11pm Note Date/Time December 20, 2022 3: 11pm [facility] Medical Records Department [address] [place] [address] Counseling Note - Pharmacy 12/20/22 1510 MR#: [id number] Acct: [id number] Name: TRE QUIÑONES Rep #:[id number] : 1955 67 From: Kenzie Hilliard PCP: [facility] Status:ADM NYDIA Y Location: [place] [address] Pharmacy [facility] Service has performed discharge [...] Signature (if applicable): Date CC: ~ Signed [facility] Work Phone: 1(156) 375-508408-29-2023 Discharge summary Author Becky Jaimes [facility] December 20, 2022 2:49pm Note Date/Time December 20, 2022 9: 48am [facility] Medical Records Department [address] [place] [address] Instructions for Home/Discharge Instructions 12/20/22 0905 MR#: [id number] Acct: [id number] Name: TRE QUIÑONES Rep #:[id number] : 1955 67 From: Becky MENSAH PA-C PCP: [facility] Status:ADM NYDIA Discharge Instructions Diet Discharge Diet: [...] weeks following your surgery date. Please call [phone] for an appointment. Test Results: Test results from this visit will be discussed in further detail at your follow- up appointment, if applicable. Discharge Plan Admission Admit Date/Time: 12/19/22 18:26 Primary Reason for Your Visit: Incarcerated umbilical hernia Attending Provider: Jerardo Millan Primary Care Provider: [place] [place] Consulting Providers: Juana Rodriguez Instructions Additional [...] our office to schedule an appointment at [phone] or if any questions or concerns Discharge [...] a 2 week follow-up with Dr. Millan) [place] [place] [Primary Care Provider] - Disposition Disposition (needs filled in before D/C Order can be placed): Home, Self Care 12/20/22 1449<Electronically signed by Becky MENSAH PA-C>Becky MENSAH PA-C CC: Dr. Juana Rodriguez MD; [facility] ~ Signed [facility] Work Phone: 1(321) 626-421408-29-2023 Progress note Author Skyler Howard [facility] December 20, 2022 1:43pm Note Date/Time December 19, 2022 5: 55pm [facility] Medical Records Department [address] [place] [address] Progress Note - Hospitalist 12/19/22 1750 MR#: [id number] Acct: [id number] Name: TRE QUIÑONES Rep #:[id number] : 1955 67 From: Skyler douglas MD PCP: [place] [place] Status:ADM NYDIA Location: [place] [address] Subjective Subjective 7-year-old male presents to the [...] % (Auto) 69.7, Lymph % (Auto) 21.0, Cocke % (Auto) 6.9, Eos % (Auto) 1.0, [...] Charges/Coding Visit Charges Office Visits / Consults: 67815 OV L3 New 12/20/22 1343 <Electronically signed by Skyler Howard MD> Cosigner Signature (if applicable): CC: ~ Signed [facility] Work Phone: 1(258) 606-891308-29-2023 Progress note Author Juana Rodriguez [facility] December 20, 2022 9:53am Note Date/Time December 20, 2022 8: 56am [facility] Medical Records Department [address] [place] [address] Progress Note - Hospitalist 12/20/22 0856 MR#: [id number] Acct: [id number] Name: QUIÑONESTRE Rep #:[id number] : 1955 67 From: Juana Rodriguez MD [place]CP[place] Status:ADM NYDIA Location: [place] [address] Reason for Visit Reason for Visit: Diagnoses [...] % (Auto) 69.7, Lymph % (Auto) 21.0, Cocke % (Auto) 6.9, Eos % (Auto) 1.0, [...] % (Auto) 68.6, Lymph % (Auto) 20.1, Cocke % (Auto) 9.5, Eos % (Auto) 0.8, [...] starting tomorrow Charges/Coding Visit Charges Inpatient E&M: 50492 Subs Hosp L1 12/20/22 0953 <Electronically signed by Juana Rodriguez MD> Cosigner Signature (if applicable): CC: ~ Signed [facility] Work Phone: 1(135) 787-122108-29-2023 Procedure [facility] 12-20-2022 Progress note Author Becky Jaimes [facility] December 20, 2022 9:04am Note Date/Time December 20, 2022 8: 55am [facility] Medical Records Department [address] [place] [address] Progress Note - Surgery 12/20/22 0853 MR#: [id number] Acct: [id number] Name: QUIÑONESTRE COYLE Imtiaz Rep #:[id number] : 1955 67 From: Becky MENSAH PA-C PCP: [facility] Status:ADM NYDIA Location: [place] [address] Subjective Subjective Patient is a 67 y/o [...] % (Auto) 69.7, Lymph % (Auto) 21.0, Cocke % (Auto) 6.9, Eos % (Auto) 1.0, [...] % (Auto) 68.6, Lymph % (Auto) 20.1, Cocke % (Auto) 9.5, Eos % (Auto) 0.8, [...] Hospitalist input Charges/Coding Visit Charges Inpatient E&M: 21811 Subs Hosp L1 (Post-op) 12/20/22 0904 <Electronically signed by Becky MENSAH PA-C> Cosigner Signature (if applicable): CC: ~ Signed [facility] Work Phone: 1(911) 689-971308-28-2023 History and physical note Author Jerardo Millan [facility] December 19, 2022 5:29pm Note Date/Time December 19, 2022 5: 30pm [facility] Medical Records Department [address] [place] [address] History & Physical Exam 12/19/221714 MR#: [id number] Acct: [id number] Name: TRE QUIÑONES Rep #:[id number] : 1955 67 From: Jerardo Kitchen PCP: [facility] Status:[facility] Location: [facility] A-3 HPI - General General Date of Admission: 12/19/22 Date of Service: 12/19/22 Chief Complaint: Acute onset and bulging at umbilical hernia HPI Narrative TRE QUIÑONES, is a 67 M who presents to [facility] ER with c/o acute ab pain [...] He has no prior abdominal surgical history. [facility] Medical History (Updated 12/19/22 @ [...] % (Auto) 69.7, Lymph % (Auto) 21.0, Cocke % (Auto) 6.9, Eos % (Auto) 1.0, [...] observation status. Charges/Coding Visit Charges Inpatient E&M: 14275 Init Hosp L2 12/19/22 1729 <Electronically signed by Jerardo Millan MD> Cosigner Signature (if applicable): CC: Dr. Jerardo Millan MD; [place] [facility]~ Signed [facility] Work Phone: 1(820) 931-918708-28-2023 Discharge summary Author Asad Mcdonough [facility] December 19, 2022 5:15pm Note Date/Time December 19, 2022 2: 18pm [facility] Medical Records Department [address] [place] [address] Emergency Department Summary 12/19/22 MR#: [id number] Acct: [id number] Name: TRE QUIÑONES Rep #:[id number] : 1955 67 From: Asad Mcdonough MD [place]CP: [place] Status:[facility] Location: [facility] AC-TB A-3 HPI HPI - GI History [...] like this. [place] been seen at the [place] and considered for elective repair, he states they were putting it off until he could lose weight and become a better surgical candidate. [facility] Medical History (Updated 12/19/22 @ 16:20 [...] % (Auto) 69.7 Lymph % (Auto) 21.0 Cocke % (Auto) 6.9 Eos % (Auto) 1.0 [...] 15:29 EDT Reading Location ID and State: [facility] / [place] Tel , Service support , Management Discussion w/another healthcare provider: Hospitalist and Bindery Supervisor (Sander Millan) Discharge Plan Dx/Rx/DC Orders Clinical Impression: Incarcerated umbilical hernia Disposition Disposition: Acute Care Hospital [facility] What to do if you have Problems For any increased pain, shortness of breath, bleeding, nausea or vomiting, chestpain, or any unexpected problems, contact your Primary Care Provider. Call [facility] ([phone]) or report to the closest Emergency Room. Call 911 if necessary. 12/19/22 1651 <Electronically signed by Asad Mcdonough MD> Cosigner Signature (if applicable): CC: [facility] ~ Signed ADDENDUM by Dr. Asad Mcdonough MD on 12/19/22 at 1715 Patient is going to laparoscopy tonight. Preop EKG was obtained, it shows AV sequential pacing and capture without acute injury pattern, and 1 view chest x- ray on my interpretation shows mild cardiomegaly but no other acute abnormalities. 08/28/23 1715<Electronically signed by Asad Mcdonough MD> Cosigner Signature (if applicable): cc: [place] [facility] ~* Signed [facility] Work Phone: Discharge summary Author Juana Rodriguez [facility] Note Date/Time January 26, 2025 11 :52am [facility] Medical Records Department [address] [place] [address] Instructions for Home/Discharge Instructions 01/26/25 1151 MR#: [id number] Acct: [id number] Name: TRE QUIÑONES Rep #:[id number] : 1955 69 From: Juana Rodriguez MD [place] [facility] Status:ADM [place] Discharge Instructions DC O2, [...] Attending Provider: Juana Rodriguez Primary Care Provider: [facility] Instructions Patient Instructions: Asthma Additional Instructions / Restrictions: DISCHARGE INSTRUCTIONS PLEASE READ *Please take this with you to your next doctors appointment* - Please continue to use your breathing treatments at home and follow-up closelywith the [place] -You will be discharged on a prednisone [...] mg PO QAM Referrals / Follow [place] [Primary Care Provider, None] - Within 1 Week Disposition Disposition (needs filled in before D/C Order can be placed): Home, Self Care 01/26/25 1152<Electronically signed by Juana Rodriguez MD>Juana Rodriguez MD CC: [place] [facility] ~ Signed [facility] Work Phone: Discharge summary Author Juana Rodriguez [facility] Note Date/Time January 26, 2025 12 :30pm [facility] Medical Records Department [address] [place] [address] Discharge Summary 01/26/25 1152 MR#: [id number] Acct: [id number] Name: TRE QUIÑONES Rep #:[id number] : 1955 69 From: Juana Rodriguez MD PCP: [facility] Status:DIS IN Location: [facility] [id number] Providers Date of Admission: 01/25/25 Date of Discharge: 01/26/25 Primary Care Physician: [facility] Reason For Visit: RESPIRATORY DISTRESS SECONDARY TO [...] procedure, hypertension, JOSÉ MIGUEL who presented to [facility] ED 01/25/25 for several days of increased [...] 83.8 H, Lymph % (Auto) 12.4 L, Cocke % (Auto) 3.3, Eos % (Auto) 0.0, [...] Attending Provider: Juana Rodriguez Primary Care Provider: [facility] Instructions Patient Instructions: Asthma Additional Instructions / Restrictions: DISCHARGE INSTRUCTIONS PLEASE READ *Please take this with you to your next doctors appointment* - Please continue to use your breathing treatments at home and [place]with [place] -You will be discharged on a prednisone [...] mg PO QAM Referrals / Follow [place] [Primary Care Provider, None] - Within 1 Week Disposition Disposition (needs filled in before D/C Order can be placed): Home, Self Care Charges/Coding Visit Charges Inpatient E&M: 04756 Disch Hosp 01/26/25 1342 <Electronically signed by Juana Rodriguez MD> Cosigner Signature (if applicable): CC: Dr. Omer Wray MD; Dr. 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 Unspecified disorders of arteries and arterioles Pre-operative cardiovascular examination Atrial fibrillation, unspecified type (HCC) Mitral valve disorder Mitral valve disorders Disorder of artery or arteriole (HCC) Unspecified disorders of arteries and arterioles Pre-operative cardiovascular examination Atrial fibrillation, unspecified type (HCC) Mitral valve disorder Mitral valve disorders documented in this encounter [facility] note* Diagnosis Pre-operative cardiovascular examination- Primary Disorder of artery or arteriole (HCC) Unspecified disorders of arteries and arterioles Atrial fibrillation, unspecified type (HCC) Mitral valve disorder Mitral valve disorders Disorder of artery or arteriole (HCC) Unspecified disorders of arteries and arterioles Pre-operative cardiovascular examination Atrial fibrillation, unspecified type (HCC) Mitral valve disorder Mitral valve disorders documented in this encounter [facility] note* Diagnosis Pre-operative cardiovascular examination- Primary Disorder of artery or arteriole (HCC) Unspecified disorders of arteries and arterioles Atrial fibrillation, unspecified type (HCC) Mitral valve disorder Mitral valve disorders Disorder of artery or arteriole (HCC) Unspecified disorders of arteries and arterioles Pre-operative cardiovascular examination Atrial fibrillation, unspecified type (HCC) Mitral valve disorder Mitral valve disorders documented in this encounter [facility] note* Diagnosis Pre-op exam- Primary Preoperative examination, [...] Mitral valve disorders documented in this encounter [facility] note* Diagnosis Disorder of artery or arteriole (HCC) Unspecified disorders of arteries and arterioles Pre-operative cardiovascular examination Atrial fibrillation, unspecified type (HCC) Mitral valve disorder Mitral valve disorders Disorder of artery or arteriole (HCC) Unspecified disorders of arteries and arterioles Pre-operative cardiovascular examination Atrial fibrillation, unspecified type (HCC) Mitral valve disorder Mitral valve disorders [facility]* Diagnosis Pacemaker reprogramming/check Fitting and adjustment of cardiac pacemaker Disorder of artery or arteriole (HCC) Unspecified disorders of arteries and arterioles Pre-operative cardiovascular examination Atrial fibrillation, unspecified type (HCC) Mitral valve disorder Mitral valve disorders [facility]* Diagnosis Disorder of artery or arteriole (HCC) Unspecified disorders of arteries and arterioles Pre-operative cardiovascular examination Atrial fibrillation, unspecified type (HCC) Mitral valve disorder Mitral valve disorders Disorder of artery or arteriole (HCC) Unspecified disorders of arteries and arterioles Pre-operative cardiovascular examination Atrial fibrillation, unspecified type (HCC) Mitral valve disorder Mitral valve disorders documented in this encounter [facility] note* Diagnosis Encounter for preoperative anesthesiology assessment for cardiac surgery- Primary Disorder of artery or arteriole (HCC) Unspecified disorders of arteries and arterioles Pre-operative cardiovascular examination Atrial fibrillation, unspecified type (HCC) Mitral valve disorder Mitral valve disorders documented in this encounter [facility] note* Diagnosis Mitral valve insufficiency, unspecified etiology- Primary Disorder of artery or arteriole (HCC) Unspecified disorders of arteries and arterioles Pre-operative cardiovascular examination Atrial fibrillation, unspecified type (HCC) Mitral valve disorder Mitral valve disorders documented in this encounter [facility] note* Diagnosis Disorder of artery or arteriole (HCC) Unspecified disorders of arteries and arterioles Pre-operative cardiovascular examination Atrial fibrillation, unspecified type (HCC) Mitral valve disorder Mitral valve disorders Disorder of artery or arteriole (HCC) Unspecified disorders of arteries and arterioles Pre-operative cardiovascular examination Atrial fibrillation, unspecified type (HCC) Mitral valve disorder Mitral valve disorders documented in this encounter [facility]* Diagnosis S/P MVR (mitral valve repair)- Primary Other postprocedural status S/P TVR (tricuspid valve repair) Other postprocedural status S/P Maze operation for atrial fibrillation Other postprocedural status Cardiac pacemaker in situ documented in this encounter [facility]* Diagnosis Surgery follow-up Follow-up examination, following unspecified surgery documented in this encounter [facility] note* Diagnosis Dyspnea, unspecified type documented in this encounter [facility] Work Phone: Evaluation note* Diagnosis Dyspnea, unspecified type- Primary Dyspnea, unspecified type documented in this encounter [facility] Work Phone: Evaluation note* Diagnosis Onset Date [...] valve repair chronic September 18, 2024 11:24am [facility] Work Phone: Evaluation note* Diagnosis Erectile dysfunction, unspecified erectile dysfunction type- [facility] Diagnosis Erectile dysfunction, unspecified erectile dysfunction type- Primary documented in this encounter [facility] Discharge instructionsAdditional Instructions DISCHARGE INSTRUCTIONS PLEASE [...] the nearest emergency department Date of Discharge: 01/26/25[facility] Work Phone: Reason for referral (narrative)* Outpatient Procedure (Routine) - New Request Specialty Diagnoses / Procedures Referred By Dwayne t Referred To [facility] Diagnoses Disorder of artery or arteriole (HCC) Pre-operative cardiovascular examination Atrial fibrillation, unspecified type (HCC) Mitral valve disorder Procedures LUNG DIFFUSION CAPACITY (DLCO) DIFFUSING CAPACITY Phillip Diamond MD [address] [place] [address] [facility] [place] [address] [place] [address] Referral ID Status Reason Start Date Expiration Date Visits Requested Visits Authorized [id number] New Request Auto-Generat ed Referral 12/08/2023 01/06/2025 1 1 * Outpatient Procedure (Routine) - New Request Specialty Diagnoses / Procedures Referred By Contac t Referred To [facility] Diagnoses Disorder of artery or arteriole (HCC) Pre-operative cardiovascular examination Atrial fibrillation, unspecified type (HCC) Mitral valve disorder Procedures SPIROMETRY BASELINE ONLY SPMTRY W/VC EXPIRATORY ABELARDO W/WO MXML VOL VNTJ Phillip Diamond MD [address] [place] [address] [facility] [place] [address] [place] [address] Referral ID Status Reason Start Date Expiration Date Visits Requested Visits Authorized [id number] New Request Auto-Generat ed Referral 12/08/2023 01/06/2025 [...] MTRL W/WO CNTRST IMGES Phillip Diamond MD [address] [place] [address] Ct Imaging [place] [address] Referral ID Status Reason Start Date Expiration Date Visits Requested Visits Authorized [id number] New Request Auto-Generat ed Referral 12/08/2023 01/06/2025 1 1 * Outpatient Procedure (Routine) - New Request Specialty Diagnoses / Procedures Referred By Contac t Referred To Contact [facility] Diagnoses Disorder of artery or arteriole (HCC) Pre-operative cardiovascular examination Atrial fibrillation, unspecified type (HCC) Mitral valve disorder Procedures ECHO ECHO TTHRC R-T 2D W/WOM-MODE COMPL SPEC&COLR D Phillip Diamond MD [address] [place] [address] [facility] [address] [address] Referral ID Status Reason Start Date Expiration Date Visits Requested Visits Authorized [id number] New Request Auto-Generat ed Referral 12/08/2023 12/07/2024 1 1 * Outpatient Procedure (Routine) - New Request Specialty Diagnoses / Procedures Referred By Dwayne t Referred To Contact [facility] Diagnoses Disorder of artery or arteriole (HCC) Pre-operative cardiovascular examination Atrial fibrillation, unspecified type (HCC) Mitral valve disorder Procedures ECG COMPLETE ECG ROUTINE ECG W/LEAST 12 LDS W/I&R Phillip Diamond MD [address] [place] [address] [place] [address] Referral ID Status Reason Start Date Expiration Date Visits Requested Visits Authorized [id number] New Request Auto-Generat ed Referral 12/08/2023 12/07/2024 1 1 * Consult, Test, Treat (Routine) - Authorized Specialty Diagnoses / Procedures Referred By Dwayne rush Referred To Contact Cardiac Surg Diagnoses Disorder of artery or arteriole (HCC) Pre-operative cardiovascular examination Atrial fibrillation, unspecified type (HCC) Mitral valve disorder Procedures CARDIOTHORACIC PREOP EVALUATION OFFICE/OUTPATIENT [facility] 60 MINUTES Phillip Diamond MD [address] [place] [address] Referral ID Status Reason Start Date Expiration Date Visits Requested Visits Authorized [id number] Authorized PCP Requested Referral 12/08/2023 12/07/2024 1 1 * Consult, Test, Treat (Routine) - Authorized Specialty Diagnoses / Procedures Referred By Dwayne rush Referred To Contact Cardiology Diagnoses Disorder of artery or arteriole (HCC) Pre-operative cardiovascular examination Atrial fibrillation, unspecified type (HCC) Mitral valve disorder Procedures CONSULT TO CARDIOLOGY OFFICE/OUTPATIENT NEW HIGH MDM 60 MINUTES Phillip Diamond MD [address] [place] [id number] Referral ID Status Reason Start Date Expiration Date Visits Requested Visits Authorized [id number] Authorized PCP Requested Referral 12/08/2023 12/07/2024 1 1 [facility] for referral (narrative)* Outpatient Procedure (Routine) - Denied Specialty Diagnoses / Procedures Referred By Contac t Referred To Contact [facility] Diagnoses Pacemaker reprogramming/check Procedures [place]ARDIAC [place] [address] [facility] [place] [address] Referral ID Status Reason Start Date Expiration Date V isits Requested Visits Authorized [id number] Denied Auto-Generat ed Referral Patient Cleared - Admin/Chairm an/Director advise to proceed or did not respond 12/12/2023 12/11/2024 1 0 Electronically signed by [facility] [place] Provider at 01/19/2024 2:57 PM EDT * Outpatient Procedure (Routine) - Denied Specialty Diagnoses / Procedures Referred By Contac t Referred To Contact [facility] Diagnoses Pacemaker reprogramming/check Procedures CARDIAC IMPLANTABLE DEVICE CHECK [address] [place] [address] Referral ID Status Reason Start Date Expiration Date V isits Requested Visits Authorized [id number] Denied Auto-Generat ed Referral Patient Cleared - Admin/Chairm an/Director advise to proceed or did not respond 12/12/2023 12/11/2024 1 0 [facility] for referral (narrative)No reason for referral information [facility] Work Phone: Reason for visit Narrative* Outpatient Procedure (Routine) - Denied Specialty Diagnoses / Procedures Referred By Contac t Referred To Contact [facility] Diagnoses Pacemaker reprogramming/check Procedures [place]ARDIAC [place] [address] [facility] [address] [address] Referral ID Status Reason Start Date Expiration Date V isits Requested Visits Authorized [id number] Denied Auto-Generat ed Referral Patient Cleared - Admin/Chairm an/Director advise to proceed or did not respond 12/12/2023 12/11/2024 1 0 [facility] Summary Purpose Family History Relationship Condition Age at Onset Recorded Date/T peg Not Specified Cerebrovascular accident (CVA) Unknown mother Diabetes mellitus Unknown Hypertension Unknown father Malignant neoplasm Unknown Family Member Condition Father Cancer Father Mother Diabetes - insulin d ependent Mother Advance Directives Advance Directive Response Recorded Date/ Time Name of Medical Power of Apricot Packer December 19, 2022 8:59pm Advance Directives Yes May 12:21pm Living Will Yes December 19 8:59pm Power of Apricot Packer Yes December 19 8:59pm Advance Directive Response Recorded Date/ Time Name of Medical Power of Apricot Packer December 19, 2022 7:59pm Name of Medical Power of Apricot Packer March 20, 2023 8:58am Advance Directives Yes May 11:21am Living Will Yes March 20 8:58am Power of Apricot Packer Yes March 20, 2023 8:58am Documents on File Type Date Recorded 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 Advance Directive(s) 01/23/2024 5:09 AM Date Activated Date Inactivated Comments 01/24/2024 1:30 PM Question Answer Comments Full Code Order Discussed With: Discussion Not M edically Appropriate Date Activated Date Inactivated Comments 01/24/2024 1:30 PM 01/29/2024 9:18 PM Documents on File Type Date Recorded 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 Yes August 13, 2024 11:47am Advance Directives Yes February 11:19am Advance Directive Response Recorded Date/ Time Advance Directives Yes February 11:19am Advance Directive Response Recorded Date/ Time Living Will Yes November 21, 2023 7:13am Do you have a Healthcare Power of Apricot Packer? Yes November 21, 2023 7:13am Advance Directives Yes February 11:19am Advance Directive Response Recorded Date/ Time Living Will Yes November 21, 2023 7:13am Do you have a Healthcare Pow er of Apricot Packer? Yes November 21, 2023 7:13am Advance Directives on File Yes Octob er 2024 9:26am Living Will Yes January 27 9:26am Do you have a Healthcare Pow er of Apricot Packer? Yes January 27, 2025 9:26am Name of Medical Power of Apricot Packer Beckyamari Pinedoon- January 27, 2025 9:26am Advance Directives Yes January 27, 2025 9:26am Do you have a Healthcare Pow er of Apricot Packer? Yes January 25, 2025 4:39pm Name of Medical Power of Apricot Packer Becky Quiñones January 25, 2025 4:39pm Advance Directive Response Recorded Date/ Time Living Will Yes November 21, 2023 6:13am Do you have a Healthcare Pow er of Apricot Packer? Yes November 21, 2023 6:13am Advance Directives on File Yes Octob er 2024 8:26am Living Will Yes January 27 8:26am Do you have a Healthcare Pow er of Apricot Packer? Yes January 27, 2025 8:26am Name of Medical Power of Apricot Packer Becky Pinedoon- January 27, 2025 8:26am Advance Directives Yes January 27, 2025 8:26am Do you have a Healthcare Pow er of Apricot Packer? 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 S eptember 2024 [...] January 13, 2025 1:18pm Essential (primary) hypertension [facility] 2024 1:18pm Presence of permanent cardiac pacemaker [...] Referred By Contac t Referred To Contact [facility] Procedures CARDIOVASCULAR MEDICINE OP FOLLOW UP APPT ORDER Moiz Koenig MD [address] [place] [address] [facility] [place] [address] Referral ID Status Reason Start Date Expiration Date Visits Requested Visits Authorized [id number] Ref Not Required PCP Requested Referral 01/19/2024 01/18/2025 1 1 Specialty Diagnoses / Procedures Referred By Contac t Referred To Contact CT IMAGING Diagnoses Disorder of artery or arteriole (HCC) Pre-operative cardiovascular examination Atrial fibrillation, unspecified type (HCC) Mitral valve disorder Procedures CTA CHEST/ABD/PEL (GATED) W IVCON CT ANGIOGRAPHY CHEST W/CONTRAST/NONCONTRAST CT ANGIO ABD&PLVIS CNTRST MTRL W/WO CNTRST Phillip Rayo MD [facility] [place] [address] Ct Imaging [place] [address] Referral ID Status Reason Start Date Expiration Date V isits Requested Visits Authorized [id number] Closed Auto-Generate d Referral 12/08/2023 01/06/2025 1 1 Specialty Diagnoses / Procedures Referred By Contac t Referred To Contact Radiology Diagnoses Dyspnea, unspecified type Procedures XR CHEST PA+LAT 2 VIEWS Chelsie Nieves, [employer] PROGRAMMER [address] [place] [address] [facility] DIAGNOSTIC RADIOLOGY [address] [place] [address] [place] [address] Referral ID Status Reason Start Date Expiration Date Visits Re quested Visits Authorized [id number] Closed 07/10/2023 07/09/2024 1 1 Additional Source Comments (unrecognized sect ion and content) No Status Records FoundNo Status Records FoundNo Status Records FoundNo Status Records FoundNo Status Records FoundNo Status Records FoundNo Status Records FoundNo Status Records Found INFORMATION SOURCE (unrecogn ized section and content) DATE CREATED AUTHOR 10/18/2017 [facility] DATE CREATED AUTHOR AUTHOR'S ORGANIZ ATION 03/11/2021 [facility] DATE CREATED AUTHOR AUTHOR'S ORGANIZ ATION 05/23/2021 [facility] DATE CREATED AUTHOR AUTHOR'S ORGANIZ ATION 07/13/2023 [facility] DATE CREATED AUTHOR AUTHOR'S ORGANIZ ATION 11/05/2024 [facility] DATE CREATED AUTHOR AUTHOR'S ORGANIZ ATION 12/17/2024 [facility] DATE CREATED AUTHOR AUTHOR'S ORGANIZ ATION 01/29/2025 [facility] DATE CREATED AUTHOR AUTHOR'S ORGANIZ ATION 02/14/2025 [facility] Care Teams (unrecognized sec tion and content) Team Status: Active Member Role/Relationship Status Dates [facility] Primary care physician Active Team Status: Inactive [...] Team Status: Inactive Member Role/Relationship Status Dates [facility] Primary care physician Active Start : January 13, 2025 End: January 13, 2025 [facility] Referring Provider Active Start: Se ptember 2024 End: January 13, 2025 Evelyn Deleon FORMULA ROOM WORKER, FORMULA ROOM WORKER-C Attending physician Active Start: January 13, 2025 [...] Team Status: Inactive Member Role/Relationship Status Dates [facility] Primary care physician Active Start : January [...] Team Status: Active Member Role/Relationship Status Dates [facility] Primary care physician Active Start : January 26, 2025 Dr. Raymond Madrid MD Emergency Department Physician Ac tive Start: January 26, 2025 Dr. Juana Rodriguez MD Admitting physician Active Start: January 26, 2025 Dr. Juana Rodriguez MD Attending physician Active Start: January 26, 2025 Dr. Juana Rodriguez MD Nurse Practitioner Active Start: January 26, 2025 Team Status: Inactive Member Role/Relationship Status Dates [facility] Primary care physician Active Start : January 27, 2025 End: January 27, 2025 Dr. Omer Wray MD Attending physician Active Start: January 27, 2025 End: January 27, 2025 Dr. Omer Wray MD Referring Provider Active S tart: January 27, 2025 End: January 27, 2025 Team Status: Inactive Member Role/Relationship Status Dates [facility] Primary care physician Active Start : 2025 End: 2025 Dr. Omer Wray MD Attending physician Active Start: 2025 End: 2025 Team Status: Inactive Member Role/Relationship Status Dates [facility] Primary care physician Active Start : February 11, 2025 End: February 11, 2025 Dr. Omer Wray MD Attending physician Active Start: February 11, 2025 End: February 11, 2025 Team Status: Inactive Member Role/Relationship Status Dates [facility] Primary care physician Active Start : February 11, 2025 End: February 11, 2025 [facility] Referring Provider Active Start: James ontiveros 2024 End: February 11, 2025 Jolene Larkin Attending physician Active Start: February 11, 2025 End: February 11, 2025 Team Status: Active Member Role Status Dates Dr. Evelyn Kruse MD Family Provider Active [facility] Primary Care Provider Active Team Status: Active Member Role Status Dates Dr. Asad Mcdonough MD Emergency Provider Active [facility] Primary Care Provider Active Dr. Jerardo Millan MD Attending Provider, Other Provi shavonne Active Team Status: Active Member Role Status Dates Dr. Asad Mcdonough MD Emergency Provider Active [facility] Primary Care Provider Active Dr. Jerardo Millan MD Admit Provider, Other Provider Active Dr. Juana Rodriguez MD Other Provider Active Becky MENSAH PAMayank Attending Provider Active Team Status: Active Member Role Status Dates Dr. Asad Mcdonough MD Emergency Provider Active [facility] Primary Care Provider Active Dr. Jerardo Millan MD Admit Provider, Other Provider Active Dr. Juana Rodriguez MD Attending Provider, Other Provid er Active Team Status: Inactive Member Role Status Dates Dr. Asad Mcdonough MD Emergency Provider Active [facility] Primary Care Provider Active Dr. Jerardo Millan MD Admit Provider, Attending Provi shavonne Active Dr. Juana Rodriguez MD Other Provider Active Team Status: Inactive Member Role Status Dates Dr. Jerardo Millan MD Attending Provider, Referring P rovider Active [facility] Doctor Primary Care Provider Active Team Status: Inactive Member Role Status Dates [facility] Doctor Primary Care Provider, Referring Pr ovider Active Dr. Jerardo Millan MD Attending Provider Active Team Status: Inactive Member Role Status Dates [facility] Doctor Primary Care Provider Active Dr. Jerardo Millan MD Attending Provider, Referring P rovider Active Team Status: Active Member Role Status Dates Dr. Jerardo Millan MD Attending Provide r, Referring Provider, Other Provider Active [facility] Primary Care Provider Active Dr. Sherif Kiser MD Other Provider Active Team Status: Inactive Member Role Status Dates Dr. Jerardo Millan MD Attending Provider, Referring P rovider Active [facility] Primary Care Provider Active Dr. Sherif Kiser MD Other Provider Active Team Status: Active Member Role Status Dates Dr. Jerardo Millan MD Attending Provider, Referring Mandy loza Active [facility] Primary Care Provider Active Team Status: Inactive Member Role Status Dates Dr. Jerardo Millan MD Attending Provider, Referring P dago Active [facility] Primary Care Provider Active Environmental Attorney Relationship Specialty Start Date End Date Phillip Diamond MD [address] [place] [address] Surgeon Cardiac Surg 12/06/23 Omer Wray MD [address] [place] [phone] Cardiology 12/06/23 Environmental Attorney Relationship Specialty Start Date End Date Omer Wray MD [address] [place] [address] PCP - General Cardiology 01/15/24 Phillip Diamond MD [address] [place] [id number] Surgeon Cardiac Surg 12/06/23 Omer Wray MD [address] [place] [address] Cardiology 12/06/23 Moiz Koenig MD [address] [place] [id number] Primary Staff Physician Cardiology 01/19/24 Environmental Attorney Relationship Specialty Start Date End Date Omer Wray MD [address] [place] [address] PCP - General Cardiology 01/15/24 Phillip Diamond MD [address] [place] [address] Surgeon Cardiac Surg 12/06/23 Omer Wray MD [address] [place] [address] Cardiology 12/06/23 Moiz Koenig MD [address] [place] [id number] Primary Staff Physician Cardiology 01/19/24 Environmental Attorney Relationship Specialty Start Date End Date Omer Wray MD [address] [address] PCP - General Cardiology 01/15/24 hPillip Diamond MD [facility] [place] [address] Surgeon Cardiac Surg 12/06/23 Omer Wray MD [address] [place] [address] Cardiology 12/06/23 Moiz Koenig MD [address] [place] [id number] Primary Staff Physician Cardiology 01/19/24 Environmental Attorney Relationship Specialty Start Date End Date Omer Wray MD [address] [address] PCP - General Cardiology 01/15/24 Phillip Diamond MD [address] [place] [address] Surgeon Cardiac Surg 12/06/23 Omer Wray MD [address] [place] [phone] Cardiology 12/06/23 Moiz Koenig MD [address] [place] [address] Primary Staff Physician Cardiology 01/19/24 Environmental Attorney Relationship Specialty Start Date End Date Omer Wray MD [address] [phone]- PCP - General Cardiology 01/15/24 Phillip Diamond MD [address] [place] [address] Surgeon Cardiac Surg 12/06/23 Omer Wray MD [address] [place] [phone] Cardiology 12/06/23 Moiz Koenig MD [address] [place] [address] Primary Staff Physician Cardiology 01/19/24 Environmental Attorney Relationship Specialty Start Date End Date Omer Wray MD [address] [phone]- PCP - General Cardiology 01/15/24 Phillip Diamond MD [address] [place] [address] Surgeon Cardiac Surg 12/06/23 Omer Wray MD [address] [place] [address] Cardiology 12/06/23 Moiz Koenig MD [address] [place] [address] Primary Staff Physician Cardiology 01/19/24 Environmental Attorney Relationship Specialty Start Date End Date Omer Wray MD [address] [phone] PCP - General Cardiology 01/15/24 Phillip Diamond MD [address] [place] [address] Surgeon Cardiac Surg 12/06/23 Omer Wray MD [address] [place] [address] Cardiology 12/06/23 Moiz Koenig MD [address] [place] [address] Primary Staff Physician Cardiology 01/19/24 Environmental Attorney Relationship Specialty Start Date End Date Omer Wray MD [address] [phone]- PCP - General Cardiology 01/15/24 Phillip Diamond MD [address] [place] [address] Surgeon Cardiac Surg 12/06/23 Omer Wray MD [address] [place] [address] Cardiology 12/06/23 Moiz oKenig MD [address] [place] [address] Primary Staff Physician Cardiology 01/19/24 Environmental Attorney Relationship Specialty Start Date End Date Omer Wray MD [address] [phone]- PCP - General Cardiology 01/15/24 Phillip Diamond MD [address] [place] [address] Surgeon Cardiac Surg 12/06/23 Omer Wray MD [address] [place] [phone] Cardiology 12/06/23 Moiz Koenig MD [address] [place] [address] Primary Staff Physician Cardiology 01/19/24 Environmental Attorney Relationship Specialty Start Date End Date Omer Wray MD [address] [phone]- PCP - General Cardiology 01/15/24 Phillip Diamond MD [address] [place] [address] Surgeon Cardiac Surg 12/06/23 Omer Wray MD [address] [place] [phone] Cardiology 12/06/23 Moiz Koenig MD [address] [place], [place] [phone] Primary Staff Physician Cardiology 01/19/24 Environmental Attorney Relationship Specialty Start Date End Date Omer Wray MD [address] [phone]- PCP - General Cardiology 01/15/24 Phillip Diamond MD [address] [place] [address] Surgeon Cardiac Surg 12/06/23 Omer Wray MD [address] [place] [phone] Cardiology 12/06/23 Moiz Koenig MD [address] [place] [address] Primary Staff Physician Cardiology 01/19/24 Environmental Attorney Relationship Specialty Start Date End Date Omer Wray MD [address] [address] PCP - General Cardiology 01/15/24 Phillip Diamond MD [address] [place] [address] Surgeon Cardiac Surg 12/06/23 Omer Wray MD [address] [place] [address] Cardiology 12/06/23 Moiz Koenig MD [address] [place], [place] [phone] Primary Staff Physician Cardiology 01/19/24 Environmental Attorney Relationship Specialty Start Date End Date Omer Wray MD [address] [address] PCP - General Cardiology 01/15/24 Phillip Diamond MD [address] [place] [address] Surgeon Cardiac Surg 12/06/23 Omer Wray MD [address] [place] [address] Cardiology 12/06/23 Moiz Koenig MD [address] [place] [address] Primary Staff Physician Cardiology 01/19/24 Environmental Attorney Relationship Specialty Start Date End Date [facility]mer Wray MD [address] [facility] [address] [address] PCP - General Cardiology 01/15/24 Phillip Diamond MD [address] [place] [address] Surgeon Cardiac Surg 12/06/23 Omer Wray MD [address] [place] [address] Cardiology 12/06/23 Moiz Koenig MD [address] [place] [address] Primary Staff Physician Cardiology 01/19/24 Environmental Attorney Relationship Specialty Start Date End Date Omer Wray MD [address] [address] PCP - General Cardiology 01/15/24 Phillip Diamond MD [address] [place] [address] Surgeon Cardiac Surg 12/06/23 Omer Wray MD [address] [place] [address] Cardiology 12/06/23 Moiz Koenig MD [address] [place] [id number] Primary Staff Physician Cardiology 01/19/24 Environmental Attorney Relationship Specialty Start Date End Date Omer Wray MD [address] [address] PCP - General Cardiology 01/15/24 Phillip Diamond MD [address] [place] [address] Surgeon Cardiac Surg 12/06/23 Omer Wray MD [address] [place] [address] Cardiology 12/06/23 Moiz Koenig MD [address] [place] [address] Primary Staff Physician Cardiology 01/19/24 Team Status: Active Member Role Status Dates [facility] Primary Care Provider Active Team Status: Inactive [...] August 13, 2024 End: August 13, 2024 [facility] Primary Care Provider Active Start: August 13, 2024 End: August 13, 2024 Team Status: Inactive Member Role Status Dates [facility] Primary Care Provider Active Start: September 18, 2024 End: September 18, 2024 [facility] Referring Provider Active Start: 2024 End: September 18, 2024 Evelyn Deleon FORMULA ROOM WORKER, FORMULA ROOM WORKER-C Attending Provider Active S tart: September 18, 2024 End: September 18, 2024 Team Status: Inactive Member Role Status Dates [facility] Primary Care Provider Active Start: September 18, 2024 End: September 18, 2024 Evelyn Deleon FORMULA ROOM WORKER, FORMULA ROOM WORKER-C Attending Provider Active S tart: September 18, 2024 End: September 18, 2024 Evelyn Deleon FORMULA ROOM WORKER, FORMULA ROOM WORKER-C Referring Provider Active S tart: September 18, 2024 End: September 18, 2024 Team Status: Inactive Member Role Status Dates [facility] Primary Care Provider Active Start: September 19, 2024 End: September 19, 2024 Dr. Omer Wray MD Attending Provider Active S tart: September 19, 2024 End: September 19, 2024 Team Status: Active Member Role/Relationship Status Dates [facility] Primary Care Provider Active Team Status: Inactive Member Role/Relationship Status Dates Dr. Qamar Rosario DO Attending Provider Active Start : August 13, 2024 End: August 13, 2024 Dr. Qamar Rosario DO Emergency Provider Active Start : August 13, 2024 End: August 13, 2024 [facility] Primary Care Provider Active Start: August 13, 2024 End: August 13, 2024 Team Status: Inactive Member Role/Relationship Status Dates [facility] Primary Care Provider Active Start: September 18, 2024 End: September 18, 2024 [facility] Referring Provider Active Start: Al 2024 End: September 18, 2024 Evelyn Deleon FORMULA ROOM WORKER, FORMULA ROOM WORKER-C Attending Provider Active S tart: September 18, 2024 End: September 18, 2024 Team Status: Inactive Member Role/Relationship Status Dates [facility] Primary Care Provider Active Start: September 18, 2024 End: September 18, 2024 Evelyn Deleon FORMULA ROOM WORKER, FORMULA ROOM WORKER-C Attending Provider Active S tart: September 18, 2024 End: September 18, 2024 Evelyn Deleon FORMULA ROOM WORKER, FORMULA ROOM WORKER-C Referring Provider Active S tart: September 18, 2024 End: September 18, 2024 Team Status: Inactive Member Role/Relationship Status Dates Dr. Omer Wray MD Attending Provider Active S tart: September 19, 2024 End: September 19, 2024 Dr. Omer Wray MD Referring Provider Active S tart: September 19, 2024 End: September 19, 2024 Team Status: Active Member Role/Relationship Status Dates [facility] Primary Care Provider Active Start: October 24, 2024 Dr. Omer Wray MD Attending Provider Active S tart: October 24, 2024 Team Status: Inactive Member Role/Relationship Status Dates Evelyn Deleon FORMULA ROOM WORKER, FORMULA ROOM WORKER-C Attending Provider Active S tart: October 24, 2024 End: October 24, 2024 Evelyn Deleon FORMULA ROOM WORKER, FORMULA ROOM WORKER-C Referring Provider Active S tart: October 24, 2024 End: October 24, 2024 [facility] Primary Care Provider Active Start: October 24, 2024 End: October 24, 2024 Environmental Attorney Relationship Specialty Start Date End Date Denny Cifuentes MD [address] [place] [address] [address] [place] [address] Surgeon Urology 11/14/22 Environmental Attorney Relationship Specialty Start Date End Date Denny Cifuentes MD [address] [place] [phone] Surgeon Urology 11/14/22 Environmental Attorney Relationship Specialty Start Date End Date Omer Wray MD [address] [phone] PCP - General Cardiology 01/15/24 Phillip Diamond MD [address] [place] [address] Surgeon Cardiac Surg 12/06/23 Omer Wray MD [address] [place] [phone] Cardiology 12/06/23 Moiz Koenig MD [address] [place] [address] Primary Staff Physician Cardiology 01/19/24 Team Status: Inactive Member Role/Relationship Status Dates [facility] Primary Care Provider Active Start: September 18, 2024 End: September 18, 2024 [facility] Referring Provider Active Start: Ludwig hernandez 2024 End: September 18, 2024 Evelyn Deleon FORMULA ROOM WORKER, FORMULA ROOM WORKER-C Attending Provider Active S tart: September 18, 2024 End: September 18, 2024 Team Status: Inactive Member Role/Relationship Status Dates [facility] Primary Care Provider Active Start: September 18, 2024 End: September 18, 2024 Evelyn Deleon FORMULA ROOM WORKER, FORMULA ROOM WORKER-C Attending Provider Active S tart: September 18, 2024 End: September 18, 2024 Evelyn Deleon FORMULA ROOM WORKER, FORMULA ROOM WORKER-C Referring Provider Active S tart: September 18, 2024 End: September 18, 2024 Team Status: Inactive Member Role/Relationship Status Dates Dr. Omer Wray MD Attending Provider Active S tart: September 19, 2024 End: September 19, 2024 Dr. Omer Wray MD Referring Provider Active S tart: September 19, 2024 End: September 19, 2024 Team Status: Active Member Role/Relationship Status Dates [facility] Primary Care Provider Active Start: October 24, 2024 Dr. Omer Wray MD Attending Provider Active S tart: October 24, 2024 Team Status: Inactive Member Role/Relationship Status Dates Evelyn Deleon FORMULA ROOM WORKER, FORMULA ROOM WORKER-C Attending Provider Active S tart: October 24, 2024 End: October 24, 2024 Evelyn Deleon FORMULA ROOM WORKER, FORMULA ROOM WORKER-C Referring Provider Active S tart: October 24, 2024 End: October 24, 2024 [facility] Primary Care Provider Active Start: October 24, 2024 End: October 24, 2024 Team Status: Inactive Member Role/Relationship Status Dates [facility] Primary Care Provider Active Start: December 19, 2024 End: December 19, 2024 Dr. Omer Wray MD Attending Provider Active S tart: December 19, 2024 End: December 19, 2024 Team Status: Active Member Role/Relationship Status Dates [facility] Primary care physician Active Start : October 24, 2024 Dr. Omer Wray MD Attending physician Active Start: October 24, 2024 Team Status: Inactive Member Role/Relationship Status Dates Evelyn Deleon FORMULA ROOM WORKER, FORMULA ROOM WORKER-C Attending physician Active Start: October 24, 2024 End: October 24, 2024 Evelyn Deleon FORMULA ROOM WORKER, FORMULA ROOM WORKER-C Referring Provider Active S tart: October 24, 2024 End: October 24, 2024 [facility] Primary care physician Active Start : October 24, 2024 End: October 24, 2024 Team Status: Inactive Member Role/Relationship Status Dates Dr. Omer Wray MD Attending physician Active Start: December 19, 2024 End: December 19, 2024 Dr. Omer Wray MD Referring Provider Active S tart: December 19, 2024 End: December 19, 2024 Team Status: Inactive Member Role/Relationship Status Dates [facility] Primary care physician Active Start : January 13, 2025 End: January 13, 2025 [facility] Referring Provider Active Start: Se ptember 2024 End: January 13, 2025 Jolene Larkin Attending physician Active Start: January 13, 2025 End: January 13, 2025 Team Status: Inactive Member Role/Relationship Status Dates [facility] Primary care physician Active Start : January 13, 2025 End: January 13, 2025 [facility] Referring Provider Active Start: Se [email or web address] End: January 13, 2025 Evelyn Deleon FORMULA ROOM WORKER, FORMULA ROOM WORKER-C Attending physician Active Start: January 13, 2025 End: January 13, 2025 Team Status: Inactive Member Role/Relationship Status Dates [facility] Primary care physician Active Start : January 14, 2025 End: January 14, 2025 Dr. Omer Wray MD Attending physician Active Start: January 14, 2025 End: January 14, 2025 Team Status: Inactive Member Role/Relationship Status Dates [facility] Primary care physician Active Start : January 18, 2025 End: January 18, 2025 Dr. Omer Wray MD Attending physician Active Start: January 18, 2025 End: January 18, 2025 Team Status: Inactive Member Role/Relationship Status Dates [facility] Primary care physician Active Start : January [...] Team Status: Active Member Role/Relationship Status Dates [facility] Primary care physician Active Start : January 26, 2025 Dr. Raymond Madrid MD Emergency Department Physician Ac tive Start: January 26, 2025 Dr. Juana Rodriguez MD Admitting physician Active Start: January 26, 2025 Dr. Juana Rodriguez MD Attending physician Active Start: January 26, 2025 Dr. Juana Rodriguez MD Nurse Practitioner Active Start: January 26, 2025 Team Status: Active Member Role/Relationship Status Dates [facility] Primary care physician Active Start : January 27, 2025 Dr. Omer Wray MD Attending physician Active Start: January 27, 2025 Dr. Omer Wray MD Referring Provider Active S tart: January 27, 2025 Team Status: Inactive Member Role/Relationship Status Dates [facility] Primary care physician Active Start : January [...] or prosecute any alcohol or drug abuse patient.[facility] the event this information is protected by the Federal Confidentiality of Alcohol and Drug Abuse Patient Records regulations: The Federal rules restrict any use of the information to criminally investigate or prosecute any alcohol or drug abuse patient.[facility] the event this information is protected by the Federal Confidentiality of Alcohol and Drug Abuse Patient Records regulations: The Federal rules restrict any use of the information to criminally investigate or prosecute any alcohol or drug abuse patient.[facility] the event this information is protected by the Federal Confidentiality of Alcohol and Drug Abuse Patient Records regulations: The Federal rules restrict any use of the information to criminally investigate or prosecute any alcohol or drug abuse patient.[facility] the event this information is protected by the Federal Confidentiality of Alcohol and Drug Abuse Patient Records regulations: The Federal rules restrict any use of the information to criminally investigate or prosecute any alcohol or drug abuse patient.[facility] the event this information is protected by the Federal Confidentiality of Alcohol and Drug Abuse Patient Records regulations: The Federal rules restrict any use of the information to criminally investigate or prosecute any alcohol or drug abuse patient.[facility] HospitalIn the event this information is protected by the Federal Confidentiality of Alcohol and Drug Abuse Patient Records regulations: The Federal rules restrict any use of the information to criminally investigate or prosecute any alcohol or drug abuse patient.[facility] HospitalIn the event this information is protected by the Federal Confidentiality of Alcohol and Drug Abuse Patient Records regulations: The Federal rules restrict any use of the information to criminally investigate or prosecute any alcohol or drug abuse patient.[facility] Hospital[facility] the event this information is protected by the Federal Confidentiality of Alcohol and Drug Abuse Patient Records regulations: The Federal rules restrict any use of the information to criminally investigate or prosecute any alcohol or drug abuse patient.[facility] the event this information is protected by the Federal Confidentiality of Alcohol and Drug Abuse Patient Records regulations: The Federal rules restrict any use of the information to criminally investigate or prosecute any alcohol or drug abuse patient.[facility] Hospital[facility] the event this information is protected by the Federal Confidentiality of Alcohol and Drug Abuse Patient Records regulations: The Federal rules restrict any use of the information to criminally investigate or prosecute any alcohol or drug abuse patient.[facility] Hospital[facility] the event this information is protected by the Federal Confidentiality of Alcohol and Drug Abuse Patient Records regulations: The Federal rules restrict any use of the information to criminally investigate or prosecute any alcohol or drug abuse patient.[facility] the event this information is protected by the Federal Confidentiality of Alcohol and Drug Abuse Patient Records regulations: The Federal rules restrict any use of the information to criminally investigate or prosecute any alcohol or drug abuse patient.[facility] the event this information is protected by the Federal Confidentiality of Alcohol and Drug Abuse Patient Records regulations: The Federal rules restrict any use of the information to criminally investigate or prosecute any alcohol or drug abuse patient.[facility] HospitalIn the event this information is protected by the Federal Confidentiality of Alcohol and Drug Abuse Patient Records regulations: The Federal rules restrict any use of the information to criminally investigate or prosecute any alcohol or drug abuse patient.[facility] HospitalIn the event this information is protected by the Federal Confidentiality of Alcohol and Drug Abuse Patient Records regulations: The Federal rules restrict any use of the information to criminally investigate or prosecute any alcohol or drug abuse patient.[facility] HospitalIn the event this information is protected by the Federal Confidentiality of Alcohol and Drug Abuse Patient Records regulations: The Federal rules restrict any use of the information to criminally investigate or prosecute any alcohol or drug abuse patient.[facility] HospitalIn the event this information is protected by the Federal Confidentiality of Alcohol and Drug Abuse Patient Records regulations: The Federal rules restrict any use of the information to criminally investigate or prosecute any alcohol or drug abuse patient.[facility] HospitalIn the event this information is protected by the Federal Confidentiality of Alcohol and Drug Abuse Patient Records regulations: The Federal rules restrict any use of the information to criminally investigate or prosecute any alcohol or drug abuse patient.[facility] Reason for Visit (unrecogniz ed section and content) Reason Comments Referral Information Pre-Op CTHO Consult Cardiac Preop Checklist Reason Comments Spirometry Specialty Diagnoses / Procedures Referred By Contac t Referred To Contact [facility] Diagnoses Disorder of artery or arteriole (HCC) Pre-operative cardiovascular examination Atrial fibrillation, unspecified type (HCC) Mitral valve disorder Procedures LUNG DIFFUSION CAPACITY (DLCO) DIFFUSING CAPACITY Phillip Diamond MD [address] [place] [address] [facility] [place] [address] [place] [address] Referral ID Status Reason Start Date Expiration Date V isits Requested Visits Authorized [id number] Closed Auto-Generate d Referral 12/08/2023 01/06/2025 1 1 Specialty Diagnoses / Procedures Referred By Contac t Referred To Contact [facility] Diagnoses Disorder of artery or arteriole (HCC) Pre-operative cardiovascular examination Atrial fibrillation, unspecified type (HCC) Mitral valve disorder Procedures SPIROMETRY BASELINE ONLY SPMTRY W/VC EXPIRATORY ABELARDO W/WO MXML VOL VNTJ Phillip Diamond MD [address] [place] [address] [place] [address] Referral ID Status Reason Start Date Expiration Date V isits Requested Visits Authorized [id number] Closed Auto-Generate d Referral 12/08/2023 01/06/2025 1 1 Specialty Diagnoses / Procedures Referred By Contac t Referred To Contact Cardiology Diagnoses Disorder of artery or arteriole (HCC) Pre-operative cardiovascular examination Atrial fibrillation, unspecified type (HCC) Mitral valve disorder Procedures CONSULT TO CARDIOLOGY OFFICE/OUTPATIENT [facility] 60 MINUTES Phillip Diamond MD [address] [place], [place] [id number] Referral ID Status Reason Start Date Expiration Date V isits Requested Visits Authorized [id number] Closed PCP Requested Referral 12/08/2023 12/07/2024 1 [...] W/WO CNTRST IMGES Phillip Diamond MD [address] [place] [address] Ct [facility] [place] [address] Referral ID Status Reason Start Date Expiration Date V isits Requested Visits Authorized [id number] Closed Auto-Generate d Referral 12/08/2023 01/06/2025 1 1 Reason Comments Radio Main J1 Specialty Diagnoses / Procedures Referred By Contact Referred To Contact Anesthesiology / CARDIAC SURGERY Diagnoses MVr +/- MAZE ?[place] 01/22 [facility] Procedures PRE OP Phillip Diamond MD [facility] [place] [address] [facility] [address] [place] [address] Referral ID Status Reason Start Date Expiration Date Visits Re quested Visits Authorized [id number] Closed 01/22/2024 04/23/2024 1 1 Reason Comments Patient Education Specialty Diagnoses / Procedures Referred By Dwayne t Referred To Contact Cardiac Surg Diagnoses Disorder of artery or arteriole (HCC) Pre-operative cardiovascular examination Atrial fibrillation, unspecified type (HCC) Mitral valve disorder Procedures CARDIOTHORACIC PREOP EVALUATION OFFICE/OUTPATIENT [facility] 60 MINUTES Phillip Diamond MD [facility] [place] [address] Referral ID Status Reason Start Date Expiration Date V isits Requested Visits Authorized [id number] Closed PCP Requested Referral 12/08/2023 12/07/2024 1 [...] BYPASS FULL MAZE W/ CARDIOPULMONARY BYPASS [facility] [address] [place] [id number] Referral ID Status Reason Start Date Expiration Date Visits Re quested Visits Authorized [id number] 1 1 Reason Comments Follow Up Phone Call [facility] follow up call a kristie clear. Reason Comments Post Op Reason Comments Patient Update Specialty Diagnoses / Procedures Referred By Contac t Referred To Contact Radiology Diagnoses Dyspnea, unspecified type Procedures XR CHEST PA+LAT 2 VIEWS Chelsie Nieves, [employer]OPERATING SYSTEMS PROGRAMMER [address] [place] [address] [facility] DIAGNOSTIC RADIOLOGY [address] [place] [address] [place] [address] Referral ID Status Reason Start Date Expiration Date Visits Re quested Visits Authorized [id number] Closed 07/10/2023 07/09/2024 1 1 Reason Comments Other Annual follow up, nc dication refills Denies uti symptoms, denies worsening [...] BE BASED ON THE PRIMARY CLINICAL RECORDS. [facility] [employer] [facility]. provides no warranty or guarantee of the accuracy or completeness of information in this document.
[2025-04-20 15:57] LABS: Magnesium 2.4 mg/dL (1.5-2.2)
[2025-04-20] MEDS: BENZOCAINE/MENTHOL 1 LOZENGE MUCOUS MEM (16:25)
[2025-04-20 16:46] LABS: Procalcitonin 0.11 ng/mL (<=0.10)
[2025-04-20 19:15] LABS: Troponin T High Sensitivity 38 ng/L (<=22)
[2025-04-20] MEDS: 0.9% Saline Lock 10 ML Syringe IV (21:03)
[2025-04-21] VITALS (8 sets, daily range): BP systolic 129–167; BP diastolic 71–83; PULSE 60–91; RESP 16–20; TEMP 36.2–36.8; O2SAT 92–99; BMI 41.5
--- NOTE | 2025-04-21 05:55 | ECHOD_ITS ---
Reason For Study Reason For Study: DYSPNEA/SOB Procedure This was a 2D Doppler, Color Flow transthoracic echocardiogram. The study was technically difficult. Contrast injection was performed. Exam performed portable in patient room. Left Ventricle Normal-sized left ventricle. Left ventricular systolic function by Vidal's biplane: 65%. Diastolic dysfunction grade indeterminate, but E/e' suggest elevated left ventricular filling pressures. No regional wall motion abnormalities noted. Right Ventricle Normal right ventricle. There is a pacemaker lead in the right ventricle. Normal systolic function. RVSP estimated at: 40 mmHg. Atria There is severe biatrial dilatation. Right atrial pressure estimated at greater than 15 mmHg. Mitral Valve Status post mitral valve repair with annuloplasty ring. Mean gradient: 5 mmHg. Mild mitral regurgitation. Ring appears to be functioning normally with normal coaptation. Tricuspid Valve Normal tricuspid valve. Mild tricuspid regurgitation. No tricuspid stenosis. Aortic Valve Trileaflet aortic valve. Mild aortic regurgitation. No hemodynamically significant aortic stenosis. Pulmonic Valve Normal pulmonic valve. No pulmonic stenosis. Trace pulmonic regurgitation. Great Vessels Normal sized aortic root. Normal arch. Pericardium/Pleural No pericardial effusion. Medication Diluted definity 1.5ml given slow IV push to enhance endocardial definition. MMode/2D Measurements & Calculations LVIDd: 6.5 cm IVSd: 1.2 cm asc Aorta Diam: 3.5 cm LVIDs: 4.3 cm LVPWd: 1.2 cm FS: 33.2 % LAV(MOD-bp): 174.0 ml LVAd ap4: 50.9 cm2 LVAd ap2: 36.9 cm2 LAV(MOD-bp) Indexed: 68.2 ml/m2 LVLd ap4: 9.2 cm LVLd ap2: 8.5 cm LAV(MOD-sp2): 165.2 ml EDV(MOD-sp4): 233.5 ml EDV(MOD-sp2): 133.5 ml LAV(MOD-sp4): 170.0 ml EDV(sp4-el): 240.3 ml EDV(sp2-el): 135.8 ml LVAs ap4: 27.7 cm2 LVAs ap2: 19.6 cm2 LVLs ap4: 7.7 cm LVLs ap2: 7.3 cm ESV(MOD-sp4): 84.5 ml ESV(MOD-sp2): 43.7 ml ESV(sp4-el): 84.9 ml ESV(sp2-el): 44.6 ml EF(MOD-sp4): 63.8 % EF(MOD-sp2): 67.2 % EF(sp4-el): 64.7 % SV(MOD-sp4): 149.0 ml SV(MOD-sp2): 89.8 ml EDV(MOD-bp): 182.5 ml SI(MOD-sp4): 58.4 ml/m2 SI(MOD-sp2): 35.2 ml/m2 ESV(MOD-bp): 63.0 ml EF(MOD-bp): 65.5 % SV(sp4-el): 155.4 ml LA A4 area: 40.9 cm2 LA dimension(2D): 6.4 cm RA A4 area: 24.2 cm2 TAPSE: 1.5 cm Time Measurements MV dec time: 0.36 sec Doppler Measurements & Calculations MV E max puma: 179.5 cm/sec Lat Peak E' Puma: 8.4 cm/sec Med Peak E' Puma: 7.9 cm/sec MV A max puma: 31.1 cm/sec E/E' lat: 21.4 E/E' med: 22.9 MV E/A: 5.8 MV V2 max: 202.4 cm/sec MV dec slope: 506.5 cm/sec2 Ao V2 max: 196.5 cm/sec MV max P.4 mmHg Ao max P.4 mmHg MV V2 mean: 96.1 cm/sec Ao V2 mean: 140.8 cm/sec MV mean P.9 mmHg Ao mean P.6 mmHg MV V2 VTI: 52.2 cm Ao V2 VTI: 42.6 cm AV (velocity ratio): 0.70 LV V1 max: 142.8 cm/sec PA V2 max: 181.3 cm/sec PI end-d puma: 106.0 cm/sec LV V1 max P.2 mmHg LV V1 mean P.6 mmHg LV V1 mean: 102.5 cm/sec LV V1 VTI: 29.9 cm TR max puma: 250.5 cm/sec TR max P.1 mmHg ECHO/Echo Complete W/ Contrast Interpretation Summary Normal left ventricular systolic function, with EF by Vidal's biplane: 65% Evidence of elevated biventricular filling pressures Severe biatrial dilation Normal right ventricular systolic function Status post mitral valve repair with normal gradients Mild aortic regurgitation Ordering Physician: Salma Crabtree Referring Physician: Ramo Foy Performed By: Tasia Coronado RDCS
[2025-04-21 06:54] LABS: Hematocrit 42.7 % (40-54); Hemoglobin 14.2 g/dL (13.0-16.5); Immature Granulocytes Count 0.010 X10^3/uL (0.0-0.0); Mean Corp Hgb Conc 33.3 g/dL (32-36); Mean Corpuscular Volume 85.7 fL (80-94); Mean Platelet Vol. 11.3 fl (6.2-12.0); NRBC Flagged by Analyzer 0 % (0-5); Platelet Count 182 K/mm3 (150-450); RBC Distribution Width CV 14.0 % (11.6-14.6); RBC Distribution Width SD 44.0 fl (35.1-43.9); Red Blood Count 4.98 M/mm3 (4.6-6.2); White Blood Count 3.1 K/mm3 (4.4-11.0)
[2025-04-21 07:02] LABS: AST(SGOT) 36 U/L (<=37); Alanine Aminotransfer ALT/SGPT 29 U/L (<=46); Albumin, Serum 4.2 g/dL (3.4-4.8); Alkaline Phosphatase 49 U/L (40-129); Anion Gap 10 (7-18); BUN 23 mg/dL (4-19); BUN/Creat Ratio 25.9 RATIO (10-20); Calcium,Total 9.3 mg/dL (7.6-11.0); Carbon Dioxide 25.4 mmol/L (20.0-29.0); Chloride 105 mmol/L (96-106); Estimated Creatinine Clearance 116.18 ml/min (50-250); Globulin 2.9 g/dL (2.2-4.2); Glucose 118 mg/dL (70-99); Potassium 4.9 mmol/L (3.5-5.1)
[2025-04-21] MEDS: Metoprolol(XL)Succ 50 MG Tablet PO (10:17)
--- NOTE | 2025-04-21 12:53 | CASEMGMT ---
MICHAEL LÓPEZ Assessment Face to Face with patient for initial transition planning/care coordination assessment. MICHAEL LÓPEZ introduced self and role at [facility], pt voices understanding. Pt is A&Ox4 and is resting comfortably in bed and is calm. Pt's at the bedside. Care providers, pharmacy, and demographics verified. Admitting dx: Hypoxia, Acute Asthma Exacerbation, Elevated Trop LACE Strata: 2 PCP: Fabrice MCDONALD ([place] Foy) Specialists: [facility], [facility] through the [place] Preferred Pharmacy: [facility] [place]: [place], [facility] A/B, [place] Prescription Benefit: Yes LNOK: Becky (W) Living Arrangements:Pt lives with his in a single story home with one step to enter ADLs/IADLs: Pt states that he is Indep and denies concerns Transportation: Self, DME: [facility]. [facility]. CPAP with no additional O2. Nebulizer. Pt is currently requiring additional oxygen and may qualify for home oxygen use. A verbal list of local in-network DME companies were provided to the pt at this time (Including [facility] through the [place]). Pt prefers [facility]. HHC/SNF: Denies hx of or needs Pt?s goal: Home Plan: Home with pt's once medically ready, follow for additional oxygen needs. Pt denies the need for any additional therapy or resources at this time and states that he feels safe returning home with his at the time of DC and denies further questions or concerns att this time. Report given to TAPE MAKER CM. Talita Reynoso RN, CM
[2025-04-21] MEDS: Albuterol 2.5 MG/3 ML VIAL.NEB. INHALATION ×2 (14:20→23:01)
--- NOTE | 2025-04-21 17:56 | PCM.PN.HOSP ---
Reason for Visit Chief Complaint: Recent URI w/ F/C, cough, productive sputum, now with wheezing and worsening dyspnea. Subjective Subjective Patient was seen and examined today, he is currently on room air. Patient tested positive for influenza A. Objective Data Objective Data Vital Signs: Vital Signs Temp Pulse Resp BP Pulse Ox O2 Del Method O2 Flow Rate 97.5 F L 60 16 135/71 H 94 Room Air 2 04/21/25 15:30 04/21/25 15:30 04/21/25 15:30 04/21/25 15:30 04/21/25 15:30 04/21/25 15:30 04/21/25 04:30 Oxygen Flow Rate (L/min) 2 Oxygen Delivery Method Room Air Weight: 139.2 kg Body Mass Index (BMI) 41.5 Intake & Output: Intake and Output for Last 24 Hours 04/19/25 04/20/25 04/21/25 23:59 23:59 23:59 Intake Total 400 / 400 100 / 100 Balance 400 / 400 100 / 100 Lab / Micro Data 04/21/25 06:05 04/21/25 06:05 Labs: Laboratory Results - last 24 hr 04/20/25 18:35: Troponin T High Sens 38 H D 04/21/25 06:05: WBC 3.1 L, RBC 4.98, Hgb 14.2, Hct 42.7, MCV 85.7, MCH 28.5, MCHC 33.3 D, RDW Std Deviation 44.0 H, RDW Coeff of Mar 14.0, Plt Count 182, MPV 11.3, Immature Gran % (Auto) 0.300, Neut % (Auto) 62.2, Lymph % (Auto) 24.8, [place] % (Auto) 12.7 H, Eos % (Auto) 0.0, Baso % (Auto) 0.0, Absolute Neuts (auto) 1.9 L, Absolute Lymphs (auto) 0.76 L, Nucleated RBC % 0, Sodium 139, Potassium 4.9, Chloride 105, Carbon Dioxide 25.4, Anion Gap 10, BUN 23 H, Creatinine 0.88, Estim Creat Clear Calc 116.18, Est GFR (MDRD) Non-Af 94, BUN/Creatinine Ratio 25.9 H, Glucose 118 H, Calcium 9.3, Total Bilirubin 0.43, AST 36, ALT 29, Alkaline Phosphatase 49, Total Protein 7.1, Albumin 4.2, Globulin 2.9, Albumin/Globulin Ratio 1.5 Micro: Microbiology 04/20/25 16:21 Mucosa - Nasopharyngeal Respiratory Panel (PCR) - Final Influenza A (Subtype H3) Radiography Diagnostic Testing: Radiology Impression Echocardiogram 04/21/25 05:55 Interpretation Summary Normal left ventricular systolic function, with EF by Vidal's biplane: 65% Evidence of elevated biventricular filling pressures Severe biatrial dilation Normal right ventricular systolic function Status post mitral valve repair with normal gradients Mild aortic regurgitation Ordering Physician: Salma Crabtree Referring Physician: Ramo Foy Performed By: Tasia Coronado RDCS Patient's Goals Of Care - F/U Goals Reviewed Goals of care reviewed with patient: NA-No significant change in clinical Status /major procedure scheduled Physical Exam Const alert, oriented x3, no apparent distress and average body habitus General Appearance: cooperative, well kempt and well developed Orientation / Consciousness: awake, oriented to person, oriented to place and oriented to time HEENT normocephalic, head/scalp atraumatic and moist oral mucous membranes Eyes PERRL, EOMs intact bilaterally and conjunctivae normal Neck supple, no JVD, thyroid normal and no carotid bruits General: trachea midline Resp normal respiratory effort, no retractions and no use of accessory muscles Resp Narrative: Expiratory wheezes are noted throughout both lung quiles Auscultation: wheezes; Negative for rales or rhonchi Cardio regular rate, regular rhythm, S1 normal heart sound, S2 normal heart sound, no murmurs, no rub and no gallops GI normal to inspection, nondistended, normoactive bowel sounds, soft to palpation, non-tender and non-distended Extremity no clubbing, cyanosis or edema Skin no rashes or lesions noted General Skin Exam: no breakdown Neuro oriented x3, CN's II-XII intact bilaterally, no focal motor deficits and no sensory deficits noted Sensorium / Orientation: awake and alert Speech: speech normal Psych affect normal Assessment & Plan Assessment/Plan (1) Acute asthma exacerbation: PLAN: Plan 1. Acute exacerbation of asthma secondary to influenza A infection-patient will remain on IV corticosteroids and aerosol treatments, pulse ox will be monitored #2 influenza A infection-patient was placed on Tamiflu #3 long-term use of anticoagulant-patient is on Xarelto #4 paroxysmal atrial fibrillation-patient is currently on Xarelto and metoprolol #5 essential hypertension-patient will remain on his present medication #6 mild pulmonary hypertension-patient had an echocardiogram performed which showed a right ventricular systolic pressure of 40 #7 chronic diastolic congestive heart failure-not in exacerbation at this time-patient will remain on his present medication Total clinical time spent by myself addressing the patient's medical issues, reviewing all of his data, and collaborating with patient's care team: 35 minutes Charges/Coding Visit Charges Inpatient E&M: 15246 Subs Hosp L2
[2025-04-22 02:59] VITALS: BMI 42.2
[2025-04-22 06:36] VITALS: BP 152/92; PULSE 63; RESP 20; TEMP 36.4; O2SAT 95
[2025-04-22 07:52] VITALS: PULSE 66
[2025-04-22] MEDS: Metoprolol(XL)Succ 50 MG Tablet PO (07:52)
[2025-04-22 07:58] VITALS: BP 138/85; PULSE 62; RESP 18; O2SAT 97
--- NOTE | 2025-04-22 13:27 | PCM.DC ---
Discharge Instructions DC O2, CPAP, BIPAP needs Home O2 Discharge instructions: No Dressing / Incision Discharge Activity: Return to Normal Activity Weight Bearing Status: Full weight bearing Follow Up Care Test Results: Test results from this visit will be discussed in further detail at your follow-up appointment, if applicable. Discharge Plan Admission Admit Date/Time: 04/20/25 14:52 Primary Reason for Your Visit: exacerbation of asthma, Influenza A Attending Provider: López Montgomery Primary Care Provider: Ramo Foy Consulting Providers: Salma Crabtree Discharge Orders/Prescriptions Prescriptions: New oseltamivir 75 mg Capsule 75 mg PO BID Qty: 7 0RF Rx Instructions: Start tonight prednisone 20 mg tablet 20 mg PO BID Qty: 20 0RF Rx Instructions: Starting 04/23/2025: 1 twice a day for 4 days, then 1-1/2 tabs daily for 4 days, then 1 tab daily for 6 days then discontinue Continued lisinopril 20 mg tablet 20 mg PO DAILY empagliflozin 25 mg tablet 12.5 mg PO QAM diclofenac sodium [Voltaren Arthritis Pain] 1 % gel 2 g topical ONCE PRN (Reason: Arthritis Pain) Rx Instructions: apply to bilateral shoulders metoprolol succinate 50 mg tablet extended release 24 hr 50 mg PO QDAY Qty: 90 3RF albuterol sulfate 1 INHALER inhaler 2 puff INHALATION Q6H PRN PRN (Reason: Wheezing/SOB) Patient Comments: Wheezing/SOB tadalafil 5 mg tablet 5 mg PO DAILY Patient Comments: Take 1 tablet by mouth every morning. rivaroxaban 20 mg tablet 20 mg PO QDAY Rx Instructions: administer with evening meal pregabalin [Lyrica] 75 mg capsule 75 mg PO BID montelukast 10 mg tablet 10 mg PO QHS Dulera 200-5 mcg/actuation HFA aerosol inhaler 2 inh inhalation Q12H cholecalciferol (vitamin D3) 50 mcg (2,000 unit) capsule 2,000 unit PO DAILY eplerenone [Inspra] 25 mg tablet 12.5 mg PO DAILY Qty: 30 1RF furosemide 20 mg tablet 20 mg PO QAM Referrals / Follow Up: Ramo Foy MD [Primary Care Provider, Infectious Disease] - See Referral Note Referral Note: In 1 to 2 weeks Disposition Disposition (needs filled in before D/C Order can be placed): Home, Self Care
--- NOTE | 2025-04-22 13:36 | DS.PCM_ITS ---
Providers Date of Admission: 04/20/25 Date of Discharge: 04/22/25 Primary Care Physician: Ramo Foy MD Reason For Visit: HYPOXIA, ACUTE ASTHMA EXAC, ELEVATED TROP Diagnosis Discharge Diagnosis (1) Acute asthma exacerbation: Status: Acute Code(s): J45.901 - Unspecified asthma with (acute) exacerbation Plan 1. Acute exacerbation of asthma secondary to influenza A infection-patient will remain on IV corticosteroids and aerosol treatments, pulse ox will be monitored #2 influenza A infection-patient was placed on Tamiflu #3 long-term use of anticoagulant-patient is on Xarelto #4 paroxysmal atrial fibrillation-patient is currently on Xarelto and metoprolol #5 essential hypertension-patient will remain on his present medication #6 mild pulmonary hypertension-patient had an echocardiogram performed which showed a right ventricular systolic pressure of 40 #7 chronic diastolic congestive heart failure-not in exacerbation at this time- patient will remain on his present medication Total clinical time spent by myself addressing the patient's medical issues, reviewing all of his data, and collaborating with patient's care team: 35 minutes Medications at Discharge Home Medications albuterol sulfate 90 mcg/actuation aerosol inhaler 2 puff inhalation Q6H PRN PRN Wheezing/SOB 07/21/17 lisinopril 20 mg tablet 20 mg PO DAILY blood pressure 05/23/18 tadalafil 5 mg tablet 5 mg PO DAILY erectile dysfunction 12/19/22 eplerenone 25 mg tablet (Inspra) 12.5 mg (1/2 x 25 mg) PO DAILY blood pressure #30 tabs 11/13/23 diclofenac sodium 1 % topical gel (Voltaren Arthritis Pain) 2 g topical ONCE PRN Arthritis Pain 02/14/24 empagliflozin 25 mg tablet 12.5 mg PO QAM diabetes 02/14/24 metoprolol succinate 50 mg tablet,extended release 24 hr 50 mg PO QDAY blood pressure #90 tabs 03/13/24 rivaroxaban 20 mg tablet 20 mg PO QDAY blood thinner 09/18/24 furosemide 20 mg tablet 20 mg PO QAM diuretic 01/13/25 pregabalin 75 mg capsule (Lyrica) 75 mg PO BID pain 01/25/25 cholecalciferol (vitamin D3) 50 mcg (2,000 unit) capsule 2,000 unit PO DAILY vitamin 04/20/25 mometasone-formoterol HFA 200 mcg-5 mcg/actuation aerosol inhaler (Dulera) 2 inh inhalation Q12H breathing 04/20/25 montelukast 10 mg tablet 10 mg PO QHS breathing 04/20/25 oseltamivir 75 mg capsule 75 mg PO BID #7 caps 04/22/25 prednisone 20 mg tablet 20 mg PO BID #20 tabs 04/22/25 Hospital Course Operations None Procedures None Summary of Care Provided Minutes Spent on Discharge: 31 Hospital Course: This 70-year-old white male was seen in the emergency room at [facility] with a chief complaint of shortness of breath. He also complained of cough and fever. Workup in the emergency room reveals a normal CBC, chemistry profile was unremarkable, troponin was 61, 2-hour troponin was 51. Beta natruretic peptide was not elevated, chest x-ray showed no acute cardiopulmonary pathology, there is mild pulmonary congestion noted. On examination, patient had diffuse expiratory wheezing and required low-flow oxygen at 2 L to maintain his pulse ox above 90%. Patient was admitted to PCU for acute hypoxia secondary to acute on chronic asthma exacerbation, respiratory panel was positive for influenza A, he was placed on Tamiflu and aerosol treatments. Patient was given IV Solu-Medrol. Patient improved during his hospitalization, he did not wear oxygen at the time of discharge from the hospital. On 04/22/2025, patient was seen and examined:alert, oriented x3, no apparent distress and average body habitus General Appearance: cooperative, well kempt and well developed Orientation / Consciousness: awake, oriented to person, oriented to place and oriented to time HEENT normocephalic, head/scalp atraumatic and moist oral mucous membranes Eyes PERRL, EOMs intact bilaterally and conjunctivae normal Neck supple, no JVD, thyroid normal and no carotid bruits General: trachea midline Resp normal respiratory effort, no retractions and no use of accessory muscles Resp Narrative: Expiratory wheezes are noted throughout both lung quiles Auscultation: wheezes; Negative for rales or rhonchi Cardio regular rate, regular rhythm, S1 normal heart sound, S2 normal heart sound, no murmurs, no rub and no gallops GI normal to inspection, nondistended, normoactive bowel sounds, soft to palpation, non-tender and non-distended Extremity no clubbing, cyanosis or edema Skin no rashes or lesions noted General Skin Exam: no breakdown Neuro oriented x3, CN's II-XII intact bilaterally, no focal motor deficits and no sensory deficits noted Sensorium / Orientation: awake and alert Speech: speech normal Psych affect normal Patient appears stable for discharge home on 04/22/2025 Weight / BMI Weight Weight: 141.1 kg Body Mass Index (BMI) 42.2 ABG / Lab / Microbiology Data 04/21/25 06:05 04/21/25 06:05 Microbiology: Microbiology 04/21/25 12:19 Sputum, Expectorated/Coughed Gram Stain - Final 04/20/25 16:21 Mucosa - Nasopharyngeal Respiratory Panel (PCR) - Final Influenza A (Subtype H3) D/C Instructions Weight Bearing Status: Full weight bearing DC O2, CPAP, BIPAP Needs Home O2 Discharge instructions: No Meaningful Use Info Meaningful Use Meaningful Use Diagnoses (Choose all that apply): None applicable Discharge Plan Admission Admit Date/Time: 04/20/25 14:52 Primary Reason for Your Visit: exacerbation of asthma, Influenza A Attending Provider: López Montgomery Primary Care Provider: Ramo Foy Consulting Providers: Salma Crabtree Discharge Orders/Prescriptions Prescriptions: New oseltamivir 75 mg Capsule 75 mg PO BID Qty: 7 0RF Rx Instructions: Start tonight prednisone 20 mg tablet 20 mg PO BID Qty: 20 0RF Rx Instructions: Starting 04/23/2025: 1 twice a day for 4 days, then 1-1/2 tabs daily for 4 days, then 1 tab daily for 6 days then discontinue Continued lisinopril 20 mg tablet 20 mg PO DAILY empagliflozin 25 mg tablet 12.5 mg PO QAM diclofenac sodium [Voltaren Arthritis Pain] 1 % gel 2 g topical ONCE PRN (Reason: Arthritis Pain) Rx Instructions: apply to bilateral shoulders metoprolol succinate 50 mg tablet extended release 24 hr 50 mg PO QDAY Qty: 90 3RF albuterol sulfate 1 INHALER inhaler 2 puff INHALATION Q6H PRN PRN (Reason: Wheezing/SOB) Patient Comments: Wheezing/SOB tadalafil 5 mg tablet 5 mg PO DAILY Patient Comments: Take 1 tablet by mouth every morning. rivaroxaban 20 mg tablet 20 mg PO QDAY Rx Instructions: administer with evening meal pregabalin [Lyrica] 75 mg capsule 75 mg PO BID montelukast 10 mg tablet 10 mg PO QHS Dulera 200-5 mcg/actuation HFA aerosol inhaler 2 inh inhalation Q12H cholecalciferol (vitamin D3) 50 mcg (2,000 unit) capsule 2,000 unit PO DAILY eplerenone [Inspra] 25 mg tablet 12.5 mg PO DAILY Qty: 30 1RF furosemide 20 mg tablet 20 mg PO QAM Referrals / Follow Up: [facility] [Provider Group] Ramo Foy MD [Primary Care Provider, Infectious Disease] - See Referral Note Referral Note: In 1 to 2 weeks Disposition Disposition (needs filled in before D/C Order can be placed): Home, Self Care Charges/Coding Visit Charges Inpatient E&M: 45412 Disch Hosp >30min
[2025-04-22 13:37] VITALS: BP 150/83; PULSE 60; RESP 16; TEMP 36.5; O2SAT 91; O2SAT 95
--- NOTE | 2025-04-22 13:50 | CASEMGMT ---
MICHAEL LÓPEZ NOTE: Discharge order is in. Home O2 amb testing has been completed. Pt does not qualify for home O2. Rx's have been e-scribed to [facility]. MICHAEL LÓPEZ to room. Pt sitting on edge of bed, getting shoes on to leave. He denies having any discharge needs or concerns. He is aware Rx's have been sent to [facility] and states he can pick them up today. Krish MCLAUHGLIN RN CM
== END 2025-04-22 14:12 | disposition home or self-care (01) | DRG 194 ==
LOC: ED 15:01 → PCU 15:18
PROVIDERS: Admitting Provider Family Medicine; Emergency Provider Emergency Medicine; PCP Internal Medicine Infectious Disease; Visit Provider Internal Medicine
DX: J10.1 Influenza due to other identified influenza virus with other respiratory manifestations (principal); J45.901 Unspecified asthma with (acute) exacerbation; I50.32 Chronic diastolic (congestive) heart failure; Z68.41 Body mass index [BMI] 40.0-44.9, adult; I13.0 Hypertensive heart and chronic kidney disease with heart failure and stage 1 through stage 4 chronic kidney disease, or unspecified chronic kidney disease; I27.20 Pulmonary hypertension, unspecified; I48.0 Paroxysmal atrial fibrillation; E66.01 Morbid (severe) obesity due to excess calories; J20.9 Acute bronchitis, unspecified; N18.2 Chronic kidney disease, stage 2 (mild); G47.33 Obstructive sleep apnea (adult) (pediatric); E78.5 Hyperlipidemia, unspecified; Z95.0 Presence of cardiac pacemaker; Z87.891 Personal history of nicotine dependence; R09.02 Hypoxemia; Z79.51 Long term (current) use of inhaled steroids; Z79.01 Long term (current) use of anticoagulants; Z99.89 Dependence on other enabling machines and devices; Z79.899 Other long term (current) drug therapy; Z96.659 Presence of unspecified artificial knee joint; R74.8 Abnormal levels of other serum enzymes
CPT/HCPCS: 36415; 71045; 80048; 80053; 83735; 83880; 84145; 84484; 85025; 87070; 87205; 87633; 93005; 93306; 94640; 94668; 99285; Q9957; A4216; C8929